=== PATIENT | male | born 1965 | race Caucasian/White ===

== ENCOUNTER 2021-05-07 14:05 | Inpatient (IN) | payer BC, OTHER ==
[2021-05-07 14:56] LABS: Basophils # (A) 0.1 k/uL (0-0.2); Basophils % (A) 1 %; Eosinophils # (A) 0.3 k/uL (0-0.7); Eosinophils % (A) 3 %; HCT 50.1 % (39.0-53.0); HGB 15.9 gm/dL (13.0-17.5); Lymphocytes # (A) 0.9 k/uL (1.0-4.8); Lymphocytes % (A) 11 %; MCH 28.2 pg (25.0-35.0); MCHC 31.8 g/dL (31.0-37.0); MCV 88.6 fL (80.0-100.0); Mean Platelet Volume 8.3; Monocytes # (A) 0.5 k/uL (0-1.0); Monocytes % (A) 5 %; Neutrophils # (A) 6.6 k/uL (1.3-7.7); Neutrophils % (A) 78 %; Platelet Count 186 k/uL (150-450); RBC 5.65 m/uL (4.30-5.90); RDW 14.8 % (11.5-15.5); WBC 8.4 k/uL (3.8-10.6)
[2021-05-07 15:05] LABS: Prothrombin Time 10.7 sec (9.0-12.0)
[2021-05-07 15:06] LABS: ALT 28 U/L (4-49); AST 40 U/L (17-59); African American GFR (CKD) >90 (>60 ml/min/1.73 sqM); Albumin 3.8 g/dL (3.5-5.0); Alkaline Phosphatase 93 U/L (38-126); Anion Gap 6 mmol/L; Blood Urea Nitrogen 28 mg/dL (9-20); Calcium 8.6 mg/dL (8.4-10.2); Carbon Dioxide 33 mmol/L (22-30); Chloride 100 mmol/L (98-107); Glucose 146 mg/dL (74-99); Non-African American GFR(CKD) 89 (>60 ml/min/1.73 sqM); Potassium 4.6 mmol/L (3.5-5.1); Sodium 139 mmol/L (137-145); Total Bilirubin 0.6 mg/dL (0.2-1.3)
--- NOTE | 2021-05-07 15:44 | XR ---
EXAMINATION TYPE: XR chest 2V DATE OF EXAM: 05/07/2021 COMPARISON: NONE HISTORY: Syncope TECHNIQUE: 2 views FINDINGS: Heart is enlarged. There is no heart failure. There are chest leads. Costophrenic angles ar e clear. Bony thorax is intact. IMPRESSION: Cardiomegaly. No acute lung disease.
--- NOTE | 2021-05-07 16:43 | ED ---
General Adult HPI - General Chief complaint: Syncope Stated complaint: falls Time Seen by Provider: 05/07/21 14:40 Source: patient Mode of arrival: wheelchair Limitations: no limitations - History of Present Illness Initial comments: Meir is a morbidly obese 56-year-old gentleman who up until recently has not been followed with any primary care provider. The patient presents to the emergency department today via private vehicle for evaluation of shortness of breath and multiple syncopal episodes. Patient reports he's had multiple falls over the past couple of weeks where he just passes out. He has bruising over his chest from these falls. No recent fevers or chills. No chest pain. He does feel short of breath and has significant exertional dyspnea. Does have palpitations at rest. Patient was recently started on Wellbutrin for depress ion. Patient states he knows he's unhealthy, he is depressed and overweight. - Related Data Home Medications Medication Instructions Recorded Confirmed Albuterol Inhaler [Ventolin Hfa 2 puff INHALATION RT-Q6H PRN 05/07/21 05/07/21 Inhaler] Fluticasone Propion/Salmeterol 1 puff INHALATION RT-BID 05/07/21 05/07/21 [Wixela 250-50 Inhub] Furosemide [Lasix] 20 mg PO DAILY 05/07/21 05/07/21 Loratadine [Claritin] 10 mg PO DAILY PRN 05/07/21 05/07/21 Naproxen Sodium 440 mg PO Q12H PRN 05/07/21 05/07/21 Potassium Gluconate [Potassium 99 mg PO DAILY 05/07/21 05/07/21 Gluconate ER] buPROPion XL [Wellbutrin XL] 150 mg PO DAILY 05/07/21 05/07/21 Allergies Allergy/AdvReac Type Severity Reaction Status Date / Time No Known Allergies Allergy Verified 05/07/21 15:51 Review of Systems ROS Statement: Those systems with pertinent positive or pertinent negative responses have been documented in the HPI. ROS Other: All systems not noted in ROS Statement are negative. Past Medical History Past Medical History: Atrial Fibrillation, Asthma, Sleep Apnea/CPAP/BIPAP History of Any Multi-Drug Resistant Organisms: None Reported Past Surgical History: Hernia Repair, Joint Replacement, Orthopedic Surgery Additional Past Surgical History / Comment(s): rt hip, rt foot Past Psychological History: Depression Smoking Status: Current every day smoker Past Alcohol Use History: None Reported, Unable to Obtain General Exam - General Exam Comments Initial Comments: Physical Exam GENERAL: Patient is well-developed and well-nourished. Patient is nontoxic and well- hydrated and is in no distress. HENT: Normocephalic, Atraumatic. EYES: PERRL, EOMI PULMONARY: Unlabored respirations. No audible rales rhonchi or wheezing was noted. CARDIOVASCULAR: Tachycardic, regular Lateral lower extremity edema, nonpitting ABDOMEN: Soft and nontender with normal bowel sounds. SKIN: Skin is clear with no lesions or rashes and otherwise unremarkable. Skin changes of bilateral lower extremity is consistent with venous stasis : Deferred NEUROLOGIC: Patient is alert and oriented x3. Moving all extremities spontaneously MUSCULOSKELETAL: Normal extremities with adequate strength and full range of motion. No lower extremity swelling or edema. No calf tenderness. PSYCHIATRIC: Normal psychiatric evaluation. Limitations: no limitations Course Vital Signs 05/07/21 05/07/21 05/07/21 14:23 15:36 16:47 Temperature 99.5 F Pulse Rate 134 H 133 H 130 H Respiratory 24 18 20 Rate Blood Pressure 138/79 175/97 174/107 O2 Sat by Pulse 87 L 96 95 Oximetry 05/07/21 18:21 Temperature Pulse Rate 130 H Respiratory 18 Rate Blood Pressure 145/84 O2 Sat by Pulse 94 L Oximetry EKG Findings - EKG Comments: EKG Findings:: EKG was obtained due to tachycardia lightheadedness, EKG was obtained at 1535 rate is 132 rhythm is sinus at a short CA, CA 88 QRS 132 QTc IV Lasix there are no obvious ST elevations or depressions no evidence of acute infarction. Medical Decision Making - Medical Decision Making She was seen and evaluated, history is obtained from the patient and mother bedside. 56-year-old gentleman does not follow primary care physician, is on Wellbutrin recently started for depression. Patient with recurrent syncopal episodes no chest pain or shortness of breath. Patient is tachycardic with normal blood pressure. Labs are obtained CT pulmonary embolism study was obtained. Labs with mildly elevated troponin, CT PE study is negative for PE or dissection there is some evidence of early heart failure and a pericardial effusion which appears small. These results were discussed with Dr. Peres who accepts the admission for trending troponins and further evaluation. Patient care was discussed with bullet swaging machine operator stone rougher Dr. Alarcon who agrees with plan for by mouth Lopressor, gentle fluids, trend troponins and cardiology follow-up. - Lab Data Result diagrams: 05/07/21 14:47 05/07/21 14:47 Lab Results 05/07/21 05/07/21 05/07/21 Range/Units 14:47 14:47 14:47 WBC 8.4 (3.8-10.6) k/uL RBC 5.65 (4.30-5.90) m/uL Hgb 15.9 (13.0-17.5) gm/dL Hct 50.1 (39.0-53.0) % MCV 88.6 (80.0-100.0) fL MCH 28.2 (25.0-35.0) pg MCHC 31.8 (31.0-37.0) g/dL RDW 14.8 (11.5-15.5) % Plt Count 186 (150-450) k/uL MPV 8.3 Neutrophils % 78 % Lymphocytes % 11 % Monocytes % 5 % Eosinophils % 3 % Basophils % 1 % Neutrophils # 6.6 (1.3-7.7) k/uL Lymphocytes # 0.9 L (1.0-4.8) k/uL Monocytes # 0.5 (0-1.0) k/uL Eosinophils # 0.3 (0-0.7) k/uL Basophils # 0.1 (0-0.2) k/uL PT (9.0-12.0) sec INR (<1.2) APTT (22.0-30.0) sec Sodium 139 (137-145) mmol/L Potassium 4.6 (3.5-5.1) mmol/L Chloride 100 (98-107) mmol/L Carbon Dioxide 33 H (22-30) mmol/L Anion Gap 6 mmol/L BUN 28 H (9-20) mg/dL Creatinine 0.94 (0.66-1.25) mg/dL Est GFR (CKD-EPI)AfAm >90 (>60 ml/min/1.73 sqM) Est GFR (CKD-EPI)NonAf 89 (>60 ml/min/1.73 sqM) Glucose 146 H (74-99) mg/dL Plasma Lactic Acid Ankur 1.5 (0.7-2.0) mmol/L Calcium 8.6 (8.4-10.2) mg/dL Magnesium 2.0 (1.6-2.3) mg/dL Total Bilirubin 0.6 (0.2-1.3) mg/dL AST 40 (17-59) U/L ALT 28 (4-49) U/L Alkaline Phosphatase 93 (38-126) U/L Troponin I (0.000-0.034) ng/mL NT-Pro-B Natriuret Pep pg/mL Total Protein 7.0 (6.3-8.2) g/dL Albumin 3.8 (3.5-5.0) g/dL TSH 1.730 (0.465-4.680) mIU/L Coronavirus (PCR) (Not Detectd) 05/07/21 05/07/21 05/07/21 Range/Units 14:47 14:47 14:47 WBC (3.8-10.6) k/uL RBC (4.30-5.90) m/uL Hgb (13.0-17.5) gm/dL Hct (39.0-53.0) % MCV (80.0-100.0) fL MCH (25.0-35.0) pg MCHC (31.0-37.0) g/dL RDW (11.5-15.5) % Plt Count (150-450) k/uL MPV Neutrophils % % Lymphocytes % % Monocytes % % Eosinophils % % Basophils % % Neutrophils # (1.3-7.7) k/uL Lymphocytes # (1.0-4.8) k/uL Monocytes # (0-1.0) k/uL Eosinophils # (0-0.7) k/uL Basophils # (0-0.2) k/uL PT (9.0-12.0) sec INR (<1.2) APTT (22.0-30.0) sec Sodium (137-145) mmol/L Potassium (3.5-5.1) mmol/L Chloride (98-107) mmol/L Carbon Dioxide (22-30) mmol/L Anion Gap mmol/L BUN (9-20) mg/dL Creatinine (0.66-1.25) mg/dL Est GFR (CKD-EPI)AfAm (>60 ml/min/1.73 sqM) Est GFR (CKD-EPI)NonAf (>60 ml/min/1.73 sqM) Glucose (74-99) mg/dL Plasma Lactic Acid Ankur (0.7-2.0) mmol/L Calcium (8.4-10.2) mg/dL Magnesium (1.6-2.3) mg/dL Total Bilirubin (0.2-1.3) mg/dL AST (17-59) U/L ALT (4-49) U/L Alkaline Phosphatase (38-126) U/L Troponin I 0.049 H* (0.000-0.034) ng/mL NT-Pro-B Natriuret Pep 1390 pg/mL Total Protein (6.3-8.2) g/dL Albumin (3.5-5.0) g/dL TSH (0.465-4.680) mIU/L Coronavirus (PCR) Not Detected (Not Detectd) 05/07/21 Range/Units 14:47 WBC (3.8-10.6) k/uL RBC (4.30-5.90) m/uL Hgb (13.0-17.5) gm/dL Hct (39.0-53.0) % MCV (80.0-100.0) fL MCH (25.0-35.0) pg MCHC (31.0-37.0) g/dL RDW (11.5-15.5) % Plt Count (150-450) k/uL MPV Neutrophils % % Lymphocytes % % Monocytes % % Eosinophils % % Basophils % % Neutrophils # (1.3-7.7) k/uL Lymphocytes # (1.0-4.8) k/uL Monocytes # (0-1.0) k/uL Eosinophils # (0-0.7) k/uL Basophils # (0-0.2) k/uL PT 10.7 (9.0-12.0) sec INR 1.0 (<1.2) APTT 23.0 (22.0-30.0) sec Sodium (137-145) mmol/L Potassium (3.5-5.1) mmol/L Chloride (98-107) mmol/L Carbon Dioxide (22-30) mmol/L Anion Gap mmol/L BUN (9-20) mg/dL Creatinine (0.66-1.25) mg/dL Est GFR (CKD-EPI)AfAm (>60 ml/min/1.73 sqM) Est GFR (CKD-EPI)NonAf (>60 ml/min/1.73 sqM) Glucose (74-99) mg/dL Plasma Lactic Acid Ankur (0.7-2.0) mmol/L Calcium (8.4-10.2) mg/dL Magnesium (1.6-2.3) mg/dL Total Bilirubin (0.2-1.3) mg/dL AST (17-59) U/L ALT (4-49) U/L Alkaline Phosphatase (38-126) U/L Troponin I (0.000-0.034) ng/mL NT-Pro-B Natriuret Pep pg/mL Total Protein (6.3-8.2) g/dL Albumin (3.5-5.0) g/dL TSH (0.465-4.680) mIU/L Coronavirus (PCR) (Not Detectd) Disposition Clinical Impression: Recurrent syncope, Tachycardia, Shortened CA interval Disposition: ADMITTED IP TO THIS HOSP Condition: Serious Is patient prescribed a controlled substance at d/c from ED?: No Referrals: Anu Mirza MD [Primary Care Provider] - 1-2 days
--- NOTE | 2021-05-07 17:01 | CT ---
EXAMINATION TYPE: CT chest angio for PE DATE OF EXAM: 05/07/2021 COMPARISON: None HISTORY: Shortness of breath. CT DLP: 909.9 mGycm Automated exposure control for dose reduction was used. CONTRAST: Performed with IV Contrast, patient injected with 100 mL of Isovue 370. There are 3-D post processed images. There is some coarse interstitial infiltrate and subsegmental atelectasis in the posterior lower lung gimenez. Heart is moderately enlarged. There is pericardial effusion. There is no mediastinal adenopa thy. There are no hilar masses. I see no evidence of filling defect in the pulmonary arteries. Thoracic aorta is intact. There is no aneurysm or dissection. Thoracic spine is intact. There is no compression fracture. Sternum is intact. There is old posterior left side healed rib fractures. IMPRESSION: Moderate cardiomegaly. Bilateral basilar pulmonary interstitial infiltrates and atelectasis. Small pe ricardial effusion. No evidence of pulmonary embolism.
--- NOTE | 2021-05-07 17:45 | XR ---
EXAMINATION TYPE: XR hand limited RT DATE OF EXAM: 05/07/2021 COMPARISON: NONE HISTORY: Finger swelling TECHNIQUE: 2 views FINDINGS: There is soft tissue swelling around the dorsum of the hand and wrist. The fingers show sof t tissue swelling. I see no fracture nor dislocation. There are no erosions. There is more noticeable soft tissue swelling around the PIP joint of the ring finger. IMPRESSION: Soft tissue swelling. No fracture.
[2021-05-07] MEDS: SODIUM CHLORIDE 0.9% 1,000 ML IV SCH ×2 (18:13→22:17)
[2021-05-07] MEDS ORDERED: NITROGLYCERIN SL TABS 0.4 MG TAB SUBLINGUAL PRN (18:18)
[2021-05-07 21:35] LABS: Appearance,Urine Clear (Clear); Bilirubin,Urine Negative (Negative); Blood,Urine Negative (Negative); Color,Urine Light Yellow; Glucose,Urine (UA) Negative (Negative); Ketones,Urine Negative (Negative); Leukocyte Esterase,Urine Negative (Negative); Nitrite,Urine Negative (Negative); Protein,Urine Negative (Negative); Specific Gravity,Urine 1.032 (1.001-1.035); Urobilinogen,Urine <2.0 mg/dL (<2.0)
[2021-05-07] MEDS: METOPROLOL TARTRATE 25 MG TAB PO SCH (22:17)
[2021-05-08] MEDS: HYDROcodone/APAP 5-325MG 1 EACH TAB PO PRN (01:00)
[2021-05-08] MEDS: SODIUM CHLORIDE 0.9% 1,000 ML IV SCH ×2 (06:49→11:46)
[2021-05-08] MEDS ORDERED: ASPIRIN 325 MG TAB PO SCH (09:00)
--- NOTE | 2021-05-08 09:38 | ECHOF ---
Referral Reason:elevated trop, pericardial effusion on Ct MEASUREMENTS -------- HEIGHT: 182.9 cm WEIGHT: 158.8 kg BP: RVIDd: 4.1 cm (< 3.3) IVSd: 1.3 cm (0.6 - 1.1) LVIDd: 4.9 cm (3.9 - 5.3) LVPWd: 1.5 cm (0.6 - 1.1) IVSs: 1.9 cm LVIDs: 3.4 cm LVPWs: 2.1 cm Ao Diam: 3.7 cm (2.0 - 3.7) MV E Donnie: 0.76 m/s MV DecT: 194 ms MV A Donnie: 0.33 m/s MV E/A Ratio: 2.32 RAP: 5.00 mmHg RVSP: 13.38 mmHg FINDINGS -------- Sinus rhythm. Morbid Obesity This was a techncally difficult study with suboptimal views, , Lumason utilized for enhancement of images. The left ventricular size is normal. There is mild concentric left ventricular hypertrophy. Overa ll left ventricular systolic function is normal with, an EF between 55 - 60 %. The right ventricle is moderately enlarged. The left atrial size is normal. The right atrial size is normal. The aortic valve was not well visualized. The mitral valve is normal. Mild mitral regurgitation is present. The tricuspid valve appears structurally normal. Mild tricuspid regurgitation present. Right vent ricular systolic pressure is normal at < 35 mmHg. The pulmonic valve was not well visualized. The aortic root size is normal. There is a small, generalized pericardial effusion present. CONCLUSIONS -------- 1. Morbid Obesity 2. This was a techncally difficult study with suboptimal views, , Lumason utilized for enhancement of images. 3. There is mild concentric left ventricular hypertrophy. 4. Overall left ventricular systolic function is normal with, an EF between 55 - 60 %. 5. The right ventricle is moderately enlarged. 6. The left atrial size is normal. 7. The aortic valve was not well visualized. 8. Mild mitral regurgitation is present. 9. Mild tricuspid regurgitation present. 10. There is a small, generalized pericardial effusion present. PROPERTY ANALYST: Renetta Cruz RDCS
[2021-05-08] MEDS ORDERED: ALBUTEROL NEBULIZED 2.5 MG/3 ML INHALATION PRN (09:58)
[2021-05-08] MEDS: METOPROLOL TARTRATE 25 MG TAB PO SCH ×2 (10:01→23:28)
[2021-05-08] MEDS ORDERED: SYMBICORT 80-4.5 MCG INHALER INHALATION SCH (10:30)
[2021-05-08 10:40] LABS: Chol/HDL Ratio 4.27 Ratio; HDL Cholesterol 34.9 mg/dL (40.00-60.00); LDL Cholesterol,Calculated 92.3 mg/dL (0.0-131.0); VLDL Calculation 21.8 mg/dL (5.00-40.00)
[2021-05-08] MEDS ORDERED: SODIUM CHLORIDE 0.9% 1,000 ML IV SCH (12:00)
[2021-05-08 12:05] LABS: Glucose,Whole Blood 139 mg/dL (75-99)
[2021-05-08 12:14] LABS: ABG Base Excess 9.9 mmol/L; ABG HCO3 39 mmol/L (21-25); ABG Oxygen Saturation 89.6 % (94-97); ABG PO2 65 mmHg (83-108); ABG TCO2 42 mmol/L (19-24); Allen Test Performed? Yes
[2021-05-08 12:22] LABS: ABG PH 7.16 (7.35-7.45)
[2021-05-08 12:23] LABS: ABG PCO2 109 mmHg (35-45)
--- NOTE | 2021-05-08 13:18 | XR ---
EXAMINATION TYPE: XR chest 1V DATE OF EXAM: 05/08/2021 COMPARISON: 05/07/2021 HISTORY: Shortness of breath TECHNIQUE: Single frontal view of the chest is obtained. FINDINGS: Heart is enlarged and there is diffuse interstitial pattern. No pleural effusion or pneumo thorax. Hypertrophic and degenerative change of the spine. IMPRESSION: 1. Severe cardiomegaly correlate for CHF. Otherwise consider interstitial pneumonitis.
--- NOTE | 2021-05-08 13:21 | P.CRDCN ---
History of Present Illness Consult date: 05/08/21 History of present illness: HISTORY OF PRESENT ILLNESS: This is a 56 year old male with a past medical history significant for asthma, COPD, nicotine dependence, and questionable atrial fibrillation. Patient states he was following with a cooking appliance repair technician at [facility]. We have been asked to see the patient in consultation for syncope. Patient examined at the bedside in the ER. Patient is a poor historian and unable to provide accurate description of the events that brought him to the hospital. He states he came to the hospital because he "kept falling asleep standing up". It is unclear if the patient had any actual syncope episodes at home. Denies CP or SOB. Patient was found to be in atrial flutter with RVR in the ER. He is currently in sinus mechanism at the time of examination. Echocardiogram completed revealed ejection fraction 55-60%. mild mitral regurgitation. Mild tricuspid regurgitation. Small generalized pericardial effusion. CT completed which was negative for PE. REVIEW OF SYSTEMS: At the time of my exam: CONSTITUTIONAL: Denies fever or chills. HEENT: Denies blurred vision, vision changes, or eye pain. Denies hemoptysis CARDIOVASCULAR: Denies chest pain. Denies orthopnea. Denies PND. Denies palpitations RESPIRATORY: Denies shortness of breath. GASTROINTESTINAL: Denies abdominal pain. Denies nausea or vomiting. HEMATOLOGIC: Denies bleeding disorders. GENITOURINARY: Denies any blood in urine. SKIN: Denies pruitis. Denies rash. PHYSICAL EXAM: VITAL SIGNS: Reviewed. GENERAL: Well-developed in no acute distress. HEENT: Head is normocephalic. Pupils are equal, round. Sclerae anicteric. Mucous membranes of the mouth are moist. Neck supple. No JVD or thyromegaly LUNGS: Respirations even and unlabored. Lungs essentially clear to auscultation bilaterally. HEART: Regular rate and rhythm. S1 and S2 heard. ABDOMEN: Soft. Nondistended. Nontender. EXTREMITIES: Normal range of motion. No clubbing or cyanosis. Peripheral pulses intact. No lower extremity edema NEUROLOGIC: Awake and alert. Oriented x 3. ASSESSMENT: Typical atrial flutter with RVR, unsure if new or patient has a history, awaiting records from primary cooking appliance repair technician Questionable syncope COPD Nicotine dependence PLAN: Decrease aspirin to 81mg daily Continue metoprolol 25mg BID Check orthostatics No anticoagulation per Dr. Burton Obtain records from primary cooking appliance repair technician Further recommendations pending patient course Nurse practitioner note has been reviewed by physician. Signing provider agrees with the documented findings, assessment, and plan of care. Past Medical History Past Medical History: Atrial Fibrillation, Asthma, Sleep Apnea/CPAP/BIPAP History of Any Multi-Drug Resistant Organisms: None Reported Past Surgical History: Hernia Repair, Joint Replacement, Orthopedic Surgery Additional Past Surgical History / Comment(s): rt hip, rt foot Past Psychological History: Depression Smoking Status: Current every day smoker Past Alcohol Use History: None Reported, Unable to Obtain Medications and Allergies Home Medications Medication Instructions Recorded Confirmed Type Albuterol Inhaler [Ventolin Hfa 2 puff INHALATION RT-Q6H PRN 05/07/21 05/07/21 History Inhaler] Fluticasone Propion/Salmeterol 1 puff INHALATION RT-BID 05/07/21 05/07/21 History [Wixela 250-50 Inhub] Furosemide [Lasix] 20 mg PO DAILY 05/07/21 05/07/21 History Loratadine [Claritin] 10 mg PO DAILY PRN 05/07/21 05/07/21 History Naproxen Sodium 440 mg PO Q12H PRN 05/07/21 05/07/21 History Potassium Gluconate [Potassium 99 mg PO DAILY 05/07/21 05/07/21 History Gluconate ER] buPROPion XL [Wellbutrin XL] 150 mg PO DAILY 05/07/21 05/07/21 History Allergies Allergy/AdvReac Type Severity Reaction Status Date / Time No Known Allergies Allergy Verified 05/07/21 15:51 Physical Exam Vitals: Vital Signs Temp Pulse Pulse Pulse Pulse Resp BP 05/08/21 06:10 71 16 141/95 05/08/21 04:25 98.2 F 67 16 140/80 05/08/21 00:00 69 20 156/106 05/07/21 23:00 68 20 05/07/21 22:15 82 18 142/67 05/07/21 20:17 98.3 F 130 H 20 129/88 05/07/21 20:00 67 67 72 18 05/07/21 18:21 130 H 18 145/84 05/07/21 16:47 130 H 20 174/107 05/07/21 15:36 133 H 18 175/97 05/07/21 14:23 99.5 F 134 H 24 138/79 BP BP Pulse Ox 05/08/21 06:10 94 L 05/08/21 04:25 98 05/08/21 00:00 95 05/07/21 23:00 05/07/21 22:15 95 05/07/21 20:17 93 L 05/07/21 20:00 104/86 136/80 97 05/07/21 18:21 94 L 05/07/21 16:47 95 05/07/21 15:36 96 05/07/21 14:23 87 L Results 05/07/21 14:47 05/07/21 14:47 Cardiac Enzymes 05/07/21 05/07/21 05/07/21 Range/Units 14:47 14:47 20:08 AST 40 (17-59) U/L Troponin I 0.049 H* 0.045 H* (0.000-0.034) ng/mL 05/07/21 Range/Units 23:25 AST (17-59) U/L Troponin I 0.043 H* (0.000-0.034) ng/mL Coagulation 05/07/21 Range/Units 14:47 PT 10.7 (9.0-12.0) sec APTT 23.0 (22.0-30.0) sec CBC 05/07/21 Range/Units 14:47 WBC 8.4 (3.8-10.6) k/uL RBC 5.65 (4.30-5.90) m/uL Hgb 15.9 (13.0-17.5) gm/dL Hct 50.1 (39.0-53.0) % Plt Count 186 (150-450) k/uL Comprehensive Metabolic Panel 05/07/21 Range/Units 14:47 Sodium 139 (137-145) mmol/L Potassium 4.6 (3.5-5.1) mmol/L Chloride 100 (98-107) mmol/L Carbon Dioxide 33 H (22-30) mmol/L BUN 28 H (9-20) mg/dL Creatinine 0.94 (0.66-1.25) mg/dL Glucose 146 H (74-99) mg/dL Calcium 8.6 (8.4-10.2) mg/dL AST 40 (17-59) U/L ALT 28 (4-49) U/L Alkaline Phosphatase 93 (38-126) U/L Total Protein 7.0 (6.3-8.2) g/dL Albumin 3.8 (3.5-5.0) g/dL Current Medications Generic Name Dose Route Start Last Admin Trade Name Freq PRN Reason Stop Dose Admin Hydrocodone Bitart/Acetaminophen 1 each 05/07/21 23:18 05/08/21 01:00 Hydrocodone/Apap 5-325mg 1 Each Tab PO 1 each Q6HR PRN Administration Pain Aspirin 81 mg 05/09/21 09:00 Aspirin 81 Mg PO DAILY OBI Sodium Chloride 1,000 mls @ 150 mls/hr 05/07/21 14:45 05/08/21 06:49 Saline 0.9% IV 150 mls/hr .Q6H40M OBI Administration Metoprolol Tartrate 25 mg 05/07/21 21:00 05/07/21 22:17 Metoprolol Tartrate 25 Mg Tab PO 25 mg BID OBI Administration Nitroglycerin 0.4 mg 05/07/21 18:18 Nitroglycerin Sl Tabs 0.4 Mg Tab SUBLINGUAL Q5M PRN Chest Pain 05/07/21 14:47 05/07/21 14:47
[2021-05-08] MEDS: buPROPion XL 150 MG TAB.ER.24H PO SCH (13:51)
[2021-05-08] MEDS ORDERED: NALOXONE 0.4 MG/ML 1 ML VIAL IVP STA (14:00)
[2021-05-08] MEDS ORDERED: FUROSEMIDE 10 MG/ML 4 ML VIAL IV STA (14:01)
--- NOTE | 2021-05-08 14:08 | P.CNPUL ---
History of Present Illness Consult date: 05/08/21 Reason for consult: dyspnea, COPD, obstructive sleep apnea History of present illness: 56-year-old male patient, morbidly obese with a BMI of 47.5, known history of COPD/asthma, a chronic smoker also with questionable history of atrial fibrillat ion. The patient came into the hospital awake and alert and the patient was having multiple syncopal episodes. In the emergency, the patient was found to be in atrial flutter with RVR. He subsequently converted to normal sinus mechanism. During the course of his emergency stay, the patient became progressively more unresponsive. He is known to have obstructive sleep apnea and apparently uses a CPAP machine at home. He doesn't not available. The patient became quite obtunded. Her blood gases showed a pH of 7.19 with a pCO2 of 109 and pO2 of 65. Urinalysis was negative. Blood work showed troponin 3 of 0.4, his white cell count was 8.4 with a hemoglobin of 15.9 and platelets of 186. Chest x-ray showed massive cardiomegaly with mild four-vessel congestion. CT angiogram showed no evidence of any pulmonary embolism. There was some limited hazy infiltrate in the lung bases bilaterally. Serum bicarb is 33. BUN is at 28 with a creatinine of 0.9. Based on the current blood gases, the patient was placed on a BiPAP at a pressure of 16/8 cm of water with an FiO2 of 40%. His current pulse ox is a 99%. He is respiratory rate is around 21. He is able to generate a tidal volume of 420 mL. the patient's: COVID 19 testing was essentially negative. Review of Systems ROS unobtainable: due to mental status Past Medical History Past Medical History: Atrial Fibrillation, Asthma, COPD, Sleep Apnea/CPAP/BIPAP History of Any Multi-Drug Resistant Organisms: None Reported Past Surgical History: Hernia Repair, Joint Replacement, Orthopedic Surgery Additional Past Surgical History / Comment(s): rt hip, rt foot Past Psychological History: Depression Smoking Status: Current every day smoker Past Alcohol Use History: None Reported, Unable to Obtain Medications and Allergies Home Medications Medication Instructions Recorded Confirmed Type Albuterol Inhaler [Ventolin Hfa 2 puff INHALATION RT-Q6H PRN 05/07/21 05/07/21 History Inhaler] Fluticasone Propion/Salmeterol 1 puff INHALATION RT-BID 05/07/21 05/07/21 History [Wixela 250-50 Inhub] Furosemide [Lasix] 20 mg PO DAILY 05/07/21 05/07/21 History Loratadine [Claritin] 10 mg PO DAILY PRN 05/07/21 05/07/21 History Naproxen Sodium 440 mg PO Q12H PRN 05/07/21 05/07/21 History Potassium Gluconate [Potassium 99 mg PO DAILY 05/07/21 05/07/21 History Gluconate ER] buPROPion XL [Wellbutrin XL] 150 mg PO DAILY 05/07/21 05/07/21 History Allergies Allergy/AdvReac Type Severity Reaction Status Date / Time No Known Allergies Allergy Verified 05/07/21 15:51 Physical Exam Vitals: Vital Signs Temp Pulse Pulse Pulse Pulse Resp BP 05/08/21 13:43 73 24 143/68 05/08/21 12:54 05/08/21 12:44 05/08/21 12:00 66 18 05/08/21 09:58 05/08/21 08:45 67 67 72 18 05/08/21 06:10 71 16 141/95 05/08/21 04:25 98.2 F 67 16 140/80 05/08/21 00:00 69 20 156/106 05/07/21 23:00 68 20 05/07/21 22:15 82 18 142/67 05/07/21 20:17 98.3 F 130 H 20 129/88 05/07/21 18:21 130 H 18 145/84 05/07/21 16:47 130 H 20 174/107 05/07/21 15:36 133 H 18 175/97 05/07/21 14:23 99.5 F 134 H 24 138/79 BP BP BP Pulse Ox 05/08/21 13:43 92 L 05/08/21 12:54 92 L 05/08/21 12:44 78 L 05/08/21 12:00 138/64 91 L 05/08/21 09:58 90 L 05/08/21 08:45 104/86 136/80 97 05/08/21 06:10 94 L 05/08/21 04:25 98 05/08/21 00:00 95 05/07/21 23:00 05/07/21 22:15 95 05/07/21 20:17 93 L 05/07/21 18:21 94 L 05/07/21 16:47 95 05/07/21 15:36 96 05/07/21 14:23 87 L Morbidly obese, currently on a BiPAP, somnolent and lethargic yet arousable upon stimulation. He is able to tolerate full face BiPAP mask. Head exam was generally normal. There was no scleral icterus or corneal arcus. Mucous membranes were moist. Neck was supple and without jugular venous distension, thyromegaly, or carotid bruits. Carotids were easily palpable bilaterally. There was no adenopathy. The patient has significant crowding of the posterior pharynx. He has a Mallampati class IV. He has cyanosis of the mucosal membranes. Lungs sounds are diminished bilaterally and there is diminished breath sounds at lung bases. Few scattered expiratory wheezes. Cardiac exam revealed the PMI to be normally situated and sized. The rhythm was regular and no extrasystoles were noted during several minutes of auscultation. The first and second heart sounds were normal and physiologic splitting of the second heart sound was noted. There were no murmurs, rubs, clicks, or gallops. Abdomen abdomenAbdominal exam revealed normal bowel sounds. The abdomen was soft, non-tender, and without masses, organomegaly, or appreciable enlargement of the abdominal aorta. And the patient has a tiny umbilical hernia Extremities show trace edema and there is no cyanosis or clubbing. Neurologically the patient is and CO2 narcosis at this point in time.. Withdraws to painful examination all 4 extremities. Pupils are equal and reactive to light. Very much somnolent and sleepy, does not follow commands and regular basis. Results - Laboratory Findings CBC and BMP: 05/07/21 14:47 05/07/21 14:47 ABG ABG pH 7.16 (7.35-7.45) L* 05/08/21 12:04 ABG pCO2 109 mmHg (35-45) H* 05/08/21 12:04 ABG pO2 65 mmHg (83-108) L 05/08/21 12:04 ABG O2 Saturation 89.6 % (94-97) L 05/08/21 12:04 PT/INR, D-dimer PT 10.7 sec (9.0-12.0) 05/07/21 14:47 INR 1.0 (<1.2) 05/07/21 14:47 Abnormal lab findings: Abnormal Labs 05/07/21 05/07/21 05/07/21 14:47 14:47 14:47 Lymphocytes # 0.9 L ABG pH ABG pCO2 ABG pO2 ABG HCO3 ABG Total CO2 ABG O2 Saturation Carbon Dioxide 33 H BUN 28 H Glucose 146 H POC Glucose (mg/dL) Troponin I 0.049 H* HDL Cholesterol 05/07/21 05/07/21 05/08/21 20:08 23:25 03:11 Lymphocytes # ABG pH ABG pCO2 ABG pO2 ABG HCO3 ABG Total CO2 ABG O2 Saturation Carbon Dioxide BUN Glucose POC Glucose (mg/dL) Troponin I 0.045 H* 0.043 H* HDL Cholesterol 34.90 L 05/08/21 05/08/21 12:03 12:04 Lymphocytes # ABG pH 7.16 L* ABG pCO2 109 H* ABG pO2 65 L ABG HCO3 39 H ABG Total CO2 42 H ABG O2 Saturation 89.6 L Carbon Dioxide BUN Glucose POC Glucose (mg/dL) 139 H Troponin I HDL Cholesterol - Diagnostic Findings Chest x-ray: image reviewed CT scan - chest: image reviewed Assessment and Plan Plan: Acute on chronic hypoxic/hypercapnic respiratory failure currently on a BiPAP for respiratory support at a pressure of 16/8 cm of water. Chest x-ray was reviewed and this shows cardiomegaly and mild pulmonary vessel congestion. CT angiogram is negative for pulmonary embolism. No evidence of any pneumonia. Although the patient has some increased haziness and pulmonary vascular markings in the lung bases bilaterally. Consider underlying COPD exacerbation in the possibility of substance abuse/drug abuse causing hypoventilation contributing to his respiratory failure. 2 acute BiPAP dependent respiratory failure, we'll try to avoid intubation at this point in time 3 CO2 narcosis with altered mentation 4 Obstructive sleep apnea, and the patient has been on CPAP pressure of 10 cm of water on outpatient basis. He does have periodic limb movement activity 5 obesity with BMI 47.5 6 COPD 7 A. fib/flutter with rapid ventricular response current rhythm is sinus 8 history of paroxysmal atrial fibrillation 9 history of bronchial asthma 10 history of osteoarthritis 11 history of umbilical hernia Plan Continue BiPAP as same level of pressure Use Precedex in the ICU if needed to control his agitation Monitor the blood. A repeat another blood gas while being on a BiPAP at a pressure of 16/8 cm of water with an FiO2 of 100% Continue bronchodilators and actually Medrol 40 mg every 8 hours Agree on antibiotics Lasix 40 mg IV push 1 and IV fluids to KVO Urine tox screen Give a dose of Narcan pending urine drug screen and assess for any positive response Echocardiogram was noted and the patient has no signs of any cardiomyopathy Anticoagulation with Eliquis and the patient was taken outpatient basis. DuoNeb nebulized treatments around the clock As for the patient with ICU and I will continue to follow. We'll consider intubation mechanical ventilation and there is any further decompensation his condition. His COVID 19 testing came back negative.
--- NOTE | 2021-05-08 15:24 | P.CNNES ---
History of Present Illness Consult date: 05/08/21 Requesting physician: Corrie Crawford Reason for Consult: syncope History of Present Illness: This is a 56-year-old gentleman with history of COPD/asthma and chronic smoker who presented emergency department on 05/07/2021 for multiple syncopal episode area. History is obtained from medical records and his nurse. Per the patient nurse the agent complaining of multiple syncopal episodes. And had multiple falls over the past couple weeks as ruled out as a result has bruises. I cannot get the details of his syncopal episode since the patient is on the BiPAP machine and that is somnolent. Unknown if the patient has any history of seizures. Patient has also presented with shortness of breath and has significant exertional dyspnea per the ED note as well as per the ED note it is mentioned the patient has palpitation arrest. In the ED the patient went into atrial flutter with RVR and went into back in sinus rhythm. Cardiology is mentioned that the patient's atrial fib which with RVR is a do not sure if it's the patient has a history or this is a new onset atrial fibrillation and pending records. Patient home medication consist of Lasix, Claritin, naproxen, Wellbutrin 150 mg daily, albuterol inhaler. Some of the workup in the hospital consisted of: Initial vital signs is blood pressure of 138/79, heart rate 134, temperature of 99.5 Fahrenheit oral, respiratory of 24 and pulse ox of 87% liters at room air. Afterwards the patient was at 96% on 4 L of nasal cannula. CBC with differential is unremarkable. Chemistry panel sodium 139, creatinine is up 0.94, calcium is 8.6, magnesium 2.0, AST of 40 and ALT of 28,. Troponin is a 0.049 repeated is 0.045. Lactic acid venous 1.5. TSH is 1.73. Panel is a triglyceride of 109, cholesterol 149, LDL 92 and HDL of 34. 2-D echo was reported as a ejection fraction 55-60%. Mild concentric left ventricular hypertrophy. Mild mitral regurgitation. Mild tricuspid regurgitation. Small generalized pericardial effusion. Left atrial size is normal. Urinalysis negative for urinary tract infection. Thorne virus is nondetected. ABG is his the pH is 7.16 and pCO2 2 is 109 while the pO2 is 65 Review of Systems Review of system is limited because of patient condition but the pertitent positive and negative as per HPI. Past Medical History Past Medical History: Atrial Fibrillation, Asthma, COPD, Sleep Apnea/CPAP/BIPAP History of Any Multi-Drug Resistant Organisms: None Reported Past Surgical History: Hernia Repair, Joint Replacement, Orthopedic Surgery Additional Past Surgical History / Comment(s): rt hip, rt foot Past Psychological History: Depression Smoking Status: Current every day smoker Past Alcohol Use History: None Reported, Unable to Obtain Medications and Allergies Home Medications Medication Instructions Recorded Confirmed Type Albuterol Inhaler [Ventolin Hfa 2 puff INHALATION RT-Q6H PRN 05/07/21 05/07/21 History Inhaler] Fluticasone Propion/Salmeterol 1 puff INHALATION RT-BID 05/07/21 05/07/21 History [Wixela 250-50 Inhub] Furosemide [Lasix] 20 mg PO DAILY 05/07/21 05/07/21 History Loratadine [Claritin] 10 mg PO DAILY PRN 05/07/21 05/07/21 History Naproxen Sodium 440 mg PO Q12H PRN 05/07/21 05/07/21 History Potassium Gluconate [Potassium 99 mg PO DAILY 05/07/21 05/07/21 History Gluconate ER] buPROPion XL [Wellbutrin XL] 150 mg PO DAILY 05/07/21 05/07/21 History Allergies Allergy/AdvReac Type Severity Reaction Status Date / Time No Known Allergies Allergy Verified 05/07/21 15:51 Physical Examination - Vital Signs Vital Signs: Vital Signs Temp Pulse Pulse Pulse Pulse Resp BP 05/08/21 14:18 67 21 141/74 05/08/21 14:07 24 05/08/21 13:43 73 24 143/68 05/08/21 12:54 05/08/21 12:44 05/08/21 12:00 66 18 05/08/21 09:58 05/08/21 08:45 67 67 72 18 05/08/21 06:10 71 16 141/95 05/08/21 04:25 98.2 F 67 16 140/80 05/08/21 00:00 69 20 156/106 05/07/21 23:00 68 20 05/07/21 22:15 82 18 142/67 05/07/21 20:17 98.3 F 130 H 20 129/88 05/07/21 18:21 130 H 18 145/84 05/07/21 16:47 130 H 20 174/107 05/07/21 15:36 133 H 18 175/97 BP BP BP Pulse Ox 05/08/21 14:18 95 05/08/21 14:07 05/08/21 13:43 92 L 05/08/21 12:54 92 L 05/08/21 12:44 78 L 05/08/21 12:00 138/64 91 L 05/08/21 09:58 90 L 05/08/21 08:45 104/86 136/80 97 05/08/21 06:10 94 L 05/08/21 04:25 98 05/08/21 00:00 95 05/07/21 23:00 05/07/21 22:15 95 05/07/21 20:17 93 L 05/07/21 18:21 94 L 05/07/21 16:47 95 05/07/21 15:36 96 Intake and Output 05/07/21 05/08/21 05/08/21 22:59 06:59 14:59 Intake Total 150 Balance 150 Intake: Oral 150 GENERAL: The patient is a morbid obese gentleman, lying in bed and does not seem in acute distress. CHEST: The heart rate is regular rate rhythm. No murmurs to auscultation. LUNG: Clear to auscultation bilaterally no wheezing noted throughout. Not labored breathing. He is on BiPAP machine ABDOMEN/GI: Bowel sounds present in all 4 quadrants. No tenderness to palpation throughout. NEUROLOGICAL: Limited because of his condition. Higher mental function: The patient is somnolent and briefly would open his eyes to painful stimuli. Not verbalizing or following commands. Cranial nerves: The pupils are round, equal, pinpoint, 1-2mm and reactive to light. Primary gaze is midline. No facial droop. Could not assess rest because of his condition. Motor: Gait is deferred. The strength is withdrawls all extremities to painful stimuli equally (upper > lowers). could not assess individual muscles because of his condition. Normal tone and bulk. Cerebellum: Could not assess. Sensation: Could not assess light touch but withdrawl to painful stimuli symmetrically. Reflexes (right/left): 1+ throughout. Plantars are mute bilaterally. Results - Laboratory Findings CBC and BMP: 05/07/21 14:47 05/07/21 14:47 Abnormal Lab Findings: Abnormal Labs 05/07/21 05/07/21 05/07/21 14:47 14:47 14:47 Lymphocytes # 0.9 L ABG pH ABG pCO2 ABG pO2 ABG HCO3 ABG Total CO2 ABG O2 Saturation Carbon Dioxide 33 H BUN 28 H Glucose 146 H POC Glucose (mg/dL) Troponin I 0.049 H* HDL Cholesterol 05/07/21 05/07/21 05/08/21 20:08 23:25 03:11 Lymphocytes # ABG pH ABG pCO2 ABG pO2 ABG HCO3 ABG Total CO2 ABG O2 Saturation Carbon Dioxide BUN Glucose POC Glucose (mg/dL) Troponin I 0.045 H* 0.043 H* HDL Cholesterol 34.90 L 05/08/21 05/08/21 12:03 12:04 Lymphocytes # ABG pH 7.16 L* ABG pCO2 109 H* ABG pO2 65 L ABG HCO3 39 H ABG Total CO2 42 H ABG O2 Saturation 89.6 L Carbon Dioxide BUN Glucose POC Glucose (mg/dL) 139 H Troponin I HDL Cholesterol Assessment and Plan Assessment: Questionable reported syncopal episode. Does not appear seizure (there is no reactive on blood test). Altered mental status likely due to hypoxic/hypercapnic encephalopathy. Atrial flutter with RVR Acute on chronic hypoxic/hypercapnic respiratory failure on BiPAP COPD Nicotine dependence Morbid obesity Plan: I ordered the CT of the brain. Ordered an urgent EEG. I'll not start the patient on antiepileptic drugs unless there is epileptiform discharges or seizure on the EEG. I commended repeating orthostatic with lying sitting standing. We'll consider getting MRI of the brain down the line if the patient continues to have altered mental status and further syncopal episodes to rule out any intracranial process. Continue Cardiac monitoring Pulmonary team is on board Cardiology team is on board We'll defer the rest of the medical management to the primary/ICU team The plan is discussed with the patient's nurse. Thank you for the consultation. Chaz Maciel M.D. Neuro-hospitalist Time with Patient: Greater than 30
[2021-05-08] MEDS: FORMOTEROL FUMARATE 20 MCG/2 ML NEBU INHALATION SCH ×2 (15:49→20:27)
[2021-05-08] MEDS: BUDESONIDE 1 MG/2 ML NEBU INHALATION SCH ×2 (15:49→20:27)
[2021-05-08] MEDS: IPRATROPIUM-ALBUTEROL 3 ML NEB INHALATION SCH ×2 (15:50→20:27)
--- NOTE | 2021-05-08 15:55 | CT ---
EXAMINATION TYPE: CT brain wo con DATE OF EXAM: 05/08/2021 HISTORY: Mental status changes. CT DLP: 1202.4 mGycm. Automated Exposure Control for Dose Reduction was Utilized. TECHNIQUE: CT scan of the head is performed without contrast. COMPARISON: None. FINDINGS: There is no acute intracranial hemorrhage or midline shift identified. There is mild diff use ventricular and sulcal prominence consistent with diffuse age-related cerebral atrophy. Doyle-whit e matter differentiation is maintained. The globes are intact and the visualized sinuses are clear. IMPRESSION: No acute intracranial hemorrhage or midline shift. There is mild diffuse age-related ce rebral atrophy incidentally noted.
[2021-05-08 16:55] LABS: VBG PH 7.17 (7.31-7.41)
--- NOTE | 2021-05-08 18:15 | P.HPIM ---
History of Present Illness H&P Date: 05/08/21 Chief Complaint: Shortness of breath This is a 56-year-old patient who follows that Anu Mirza. Patient presented to the ER yesterday evening becoming more short of breath and having multiple syncopal episodes. I told the ER physician that he been having falls last coup le of weeks and simply passes out. He's had a bruising over his anterior chest from these falls. Denies any fever and chills. He short of breath and significant exertional dyspnea. Also some palpitations. Patient is a smoker. When I came to see the patient patient somewhat lethargic. Barely arousable. Breathing a bit heavy but not in distress. Tachycardic. I ordered blood gases. Review of systems cannot be done as patient rather lethargic Past medical history to include: Atrial fibrillation, COPD, sleep apnea, depression smoker Social history: Smoker Family history: Patient lethargic. Unable to obtain Physical examination: VITAL SIGNS: 98.2, 72, 18, 136/80, 97% on 5 L] GENERAL: BMI 47.5, laying in bed, breathing a bit heavy lethargic barely arousable. EYES: Pupils equal. Conjunctiva normal. HEENT: External appearance of nose and ears normal, oral cavity: Unable to assess. NECK: JVD not raised; masses not palpable. HEART: First and second heart sounds are normal; edema present. LUNGS: Respiratory rate increased; decreased breath sounds. ABDOMEN: Soft, distended nontender, liver spleen not palpable, no masses palpable. CHEST wall: Bruising on the left anterior chest wall PSYCH: [Unable to assess patient lethargic l. NEUROLOGICAL: [Cranial nerves grossly intact; no facial asymmetry, moving his limbs. LYMPHATICS: No lymph nodes palpable in the axilla and neck INVESTIGATIONS, reviewed in the clinical context: ABG: PH 7.16 pCO2 109 pO2 65 on 4 L White count 8.4 hemoglobin 15.9 platelets 186 potassium 4.6 BUN 28 creatinine 0.4 Troponin I 0.049, 0.045, 0.043 ProBNP 1390 LDL 92.3 TSH 1.7 UA negative Coronavirus [PCR]: Not detected Chest x-ray film personally reviewed by me-cardiomegaly, some infiltrates Chest CTA: Moderate cardiomegaly. Bilateral basilar pulmonary interstitial infiltrates. No PE. EKG tracing personally reviewed by me-sinus tachycardia. Some T wave changes. 2-D echocardiogram: Suboptimal views. EF 55-60%. Right ventricle moderately enlarged. Assessment and plan: -Acute hypoxic and hypercapnic respiratory failure from COPD exacerbation and a smoker BiPAP. Pulmonary consultation. -Acute hypoxic hypercapnic metabolic encephalopathy Follow clinically -Acute COPD exacerbation in a current smoker DuoNeb 4 times a day, Pulmicort 1 mg twice a day, Perforomist 20 g twice a day. IV Solu-Medrol -Chronic nicotine dependence, cigarette smoker Nicotine patch 21 -Depression not otherwise specified Wellbutrin 150 mg daily -Mild acute congestive heart failure exacerbation from diastolic dysfunction EF 55-60% IV Lasix. Cardiology consultation -Troponinemia, from hemodynamic mismatch. Follow-up with cardiology Patient started on DuoNeb, nebulized steroids, long-acting. Diabetes. IV Solu- Medrol. BiPAP. Pulmonary consulted. Patient will need to be moved to ICU. Cardiology consultation. Given the complexity and severity of patient's condition expect the patient to be in the hospital at least for 2 overnights Past Medical History Past Medical History: Atrial Fibrillation, Asthma, Sleep Apnea/CPAP/BIPAP History of Any Multi-Drug Resistant Organisms: None Reported Past Surgical History: Hernia Repair, Joint Replacement, Orthopedic Surgery Additional Past Surgical History / Comment(s): rt hip, rt foot Past Psychological History: Depression Smoking Status: Current every day smoker Past Alcohol Use History: None Reported, Unable to Obtain Medications and Allergies Home Medications Medication Instructions Recorded Confirmed Type Albuterol Inhaler [Ventolin Hfa 2 puff INHALATION RT-Q6H PRN 05/07/21 05/07/21 History Inhaler] Fluticasone Propion/Salmeterol 1 puff INHALATION RT-BID 05/07/21 05/07/21 History [Wixela 250-50 Inhub] Furosemide [Lasix] 20 mg PO DAILY 05/07/21 05/07/21 History Loratadine [Claritin] 10 mg PO DAILY PRN 05/07/21 05/07/21 History Naproxen Sodium 440 mg PO Q12H PRN 05/07/21 05/07/21 History Potassium Gluconate [Potassium 99 mg PO DAILY 05/07/21 05/07/21 History Gluconate ER] buPROPion XL [Wellbutrin XL] 150 mg PO DAILY 05/07/21 05/07/21 History Allergies Allergy/AdvReac Type Severity Reaction Status Date / Time No Known Allergies Allergy Verified 05/07/21 15:51 Physical Exam Vitals: Vital Signs Temp Pulse Pulse Pulse Pulse Resp BP 05/08/21 09:58 05/08/21 06:10 71 16 141/95 05/08/21 04:25 98.2 F 67 16 140/80 05/08/21 00:00 69 20 156/106 05/07/21 23:00 68 20 05/07/21 22:15 82 18 142/67 05/07/21 20:17 98.3 F 130 H 20 129/88 05/07/21 20:00 67 67 72 18 05/07/21 18:21 130 H 18 145/84 05/07/21 16:47 130 H 20 174/107 05/07/21 15:36 133 H 18 175/97 05/07/21 14:23 99.5 F 134 H 24 138/79 BP BP Pulse Ox 05/08/21 09:58 99 05/08/21 06:10 94 L 05/08/21 04:25 98 05/08/21 00:00 95 05/07/21 23:00 05/07/21 22:15 95 05/07/21 20:17 93 L 05/07/21 20:00 104/86 136/80 97 05/07/21 18:21 94 L 05/07/21 16:47 95 05/07/21 15:36 96 05/07/21 14:23 87 L Results CBC & Chem 7: 05/07/21 14:47 05/07/21 14:47 Labs: Abnormal Lab Results - Last 24 Hours (Table) 05/07/21 05/07/21 05/07/21 Range/Units 14:47 14:47 14:47 Lymphocytes # 0.9 L (1.0-4.8) k/uL Carbon Dioxide 33 H (22-30) mmol/L BUN 28 H (9-20) mg/dL Glucose 146 H (74-99) mg/dL Troponin I 0.049 H* (0.000-0.034) ng/mL 05/07/21 05/07/21 Range/Units 20:08 23:25 Lymphocytes # (1.0-4.8) k/uL Carbon Dioxide (22-30) mmol/L BUN (9-20) mg/dL Glucose (74-99) mg/dL Troponin I 0.045 H* 0.043 H* (0.000-0.034) ng/mL
[2021-05-08] MEDS: ENOXAPARIN 40 MG/0.4 ML SYRINGE SQ SCH (18:16)
[2021-05-08] MEDS: methylPREDNISolone SOD SUCCI 40 MG/ML 1 ML VIAL IV SCH ×2 (18:18→23:45)
[2021-05-08 21:40] LABS: Glucose,Whole Blood 184 mg/dL (75-99)
[2021-05-08 21:48] LABS: ABG Base Excess 13.1 mmol/L; ABG HCO3 38 mmol/L (21-25); ABG Oxygen Saturation 90.7 % (94-97); ABG PCO2 67 mmHg (35-45); ABG PH 7.37 (7.35-7.45); ABG TCO2 41 mmol/L (19-24); Allen Test Performed? Yes
[2021-05-08 21:52] LABS: ABG PO2 56 mmHg (83-108)
[2021-05-08] MEDS: NICOTINE 21MG/24HR PATCH TRANSDERM SCH (23:22)
[2021-05-08] MEDS: DEXMEDETOMIDINE/0.9% NACL(PMX) 400 MCG in EMPTY BAG 1 BAG IV SCH (23:28)
[2021-05-09] MEDS: DEXMEDETOMIDINE/0.9% NACL(PMX) 400 MCG in EMPTY BAG 1 BAG IV SCH ×3 (02:19→06:01)
[2021-05-09 06:16] LABS: Basophils % (A) 0 %; Eosinophils % (A) 0 %; HCT 50.5 % (39.0-53.0); HGB 16.2 gm/dL (13.0-17.5); Lymphocytes # (A) 0.4 k/uL (1.0-4.8); Lymphocytes % (A) 4 %; MCH 28.6 pg (25.0-35.0); MCV 89.2 fL (80.0-100.0); Mean Platelet Volume 8.2; Monocytes # (A) 0.3 k/uL (0-1.0); Monocytes % (A) 3 %; Neutrophils # (A) 7.8 k/uL (1.3-7.7); Neutrophils % (A) 92 %; Platelet Count 188 k/uL (150-450); RBC 5.65 m/uL (4.30-5.90); WBC 8.5 k/uL (3.8-10.6)
[2021-05-09 06:38] LABS: African American GFR (CKD) >90 (>60 ml/min/1.73 sqM); Anion Gap 5 mmol/L; Blood Urea Nitrogen 29 mg/dL (9-20); Calcium 8.6 mg/dL (8.4-10.2); Carbon Dioxide 34 mmol/L (22-30); Chloride 98 mmol/L (98-107); Glucose 207 mg/dL (74-99); Magnesium 2.3 mg/dL (1.6-2.3); Non-African American GFR(CKD) 87 (>60 ml/min/1.73 sqM); Potassium 5.7 mmol/L (3.5-5.1); Sodium 137 mmol/L (137-145)
[2021-05-09] MEDS: FUROSEMIDE 10 MG/ML 4 ML VIAL IV SCH ×2 (06:49→20:07)
[2021-05-09] MEDS: FORMOTEROL FUMARATE 20 MCG/2 ML NEBU INHALATION SCH ×2 (08:20→20:59)
[2021-05-09] MEDS: IPRATROPIUM-ALBUTEROL 3 ML NEB INHALATION SCH ×4 (08:20→21:00)
[2021-05-09] MEDS: BUDESONIDE 1 MG/2 ML NEBU INHALATION SCH ×2 (08:20→20:59)
[2021-05-09] MEDS: methylPREDNISolone SOD SUCCI 40 MG/ML 1 ML VIAL IV SCH ×2 (08:52→17:05)
[2021-05-09] MEDS: ENOXAPARIN 40 MG/0.4 ML SYRINGE SQ SCH (08:53)
[2021-05-09] MEDS: NICOTINE 21MG/24HR PATCH TRANSDERM SCH (09:06)
--- NOTE | 2021-05-09 09:18 | P.PN ---
Subjective Progress Note Date: 05/09/21 56-year-old male patient, morbidly obese with a BMI of 47.5, known history of COPD/asthma, a chronic smoker also with questionable history of atrial fibrillation. The patient came into the hospital awake and alert and the patient was having multiple syncopal episodes. In the emergency, the patient was found to be in atrial flutter with RVR. He subsequently converted to normal sinus mechanism. During the course of his emergency stay, the patient became progressively more unresponsive. He is known to have obstructive sleep apnea and apparently uses a CPAP machine at home. He doesn't not available. The patient became quite obtunded. Her blood gases showed a pH of 7.19 with a pCO2 of 109 and pO2 of 65. Urinalysis was negative. Blood work showed troponin 3 of 0.4, his white cell count was 8.4 with a hemoglobin of 15.9 and platelets of 186. Chest x-ray showed massive cardiomegaly with mild four-vessel congestion. CT angiogram showed no evidence of any pulmonary embolism. There was some limited hazy infiltrate in the lung bases bilaterally. Serum bicarb is 33. BUN is at 28 with a creatinine of 0.9. Based on the current blood gases, the patient was placed on a BiPAP at a pressure of 16/8 cm of water with an FiO2 of 40%. His current pulse ox is a 99%. He is respiratory rate is around 21. He is able to generate a tidal volume of 420 mL. the patient's: COVID 19 testing was essentially negative. The patient is seen today 05/09/2021 in follow-up in the intensive care unit. He remains on BiPAP 16/8 and 40% FiO2. He did have periods of awake and alertness throughout the night he was somewhat aggressive and swinging at the staff. He was placed on Precedex currently at 1 mcg/kg/m and is more somnolent this morning. He does arouse to verbal stimuli. He drifts off easily. He was asking what time it was this morning. CT scan of the brain revealed no acute intracranial hemorrhage or midline shift. There is mild diffuse age-related cerebral atrophy noted. White count 8.5. Hemoglobin 16.2. Sodium 137. Potassium 5.7. Creatinine 0.96. Glucose 207. Low blood gases on 44% FiO2 revealed a PaO2 of 56, pCO2 67 and a pH of 7.37. EEG is pending. He remains on DuoNeb inhalations, Pulmicort and Perforomist inhalations, IV Solu-Medrol. Ceftriaxone for empiric antibiotics. He remains on Lasix 40 mg IV every 12 hours. NicoDerm patch is in place. Objective - Vital Signs Vital signs: Vital Signs Temp 98 F 05/09/21 04:00 Pulse 63 05/09/21 08:41 Resp 20 05/09/21 07:00 BP 151/96 05/09/21 07:00 Pulse Ox 89 L 05/09/21 07:00 Intake & Output 05/08/21 05/09/21 05/09/21 18:59 06:59 18:59 Intake Total 150 726.095 26.195 Output Total 800 640 125 Balance -650 86.095 -98.805 Weight 150 kg Intake: Intake, IV Titration 226.095 26.195 Amount Dexmedetomidine/0.9% NaCl 226.095 26.195 (Pmx) 400 mcg In Empty Bag 1 bag @ 0.2 MCG/KG/HR 7.938 mls/hr IV .[id number] [facility] Rx#:[id number] Oral 150 500 Output: Urine 800 640 125 Other: Voiding Method Indwelling Catheter - Exam Morbidly obese, 56-year-old male patient, currently on a BiPAP, somnolent and lethargic yet arousable upon verbal stimulation. He is able to tolerate full face BiPAP mask. Head exam was generally normal. There was no scleral icterus or corneal arcus. Mucous membranes were moist. Neck was supple and without jugular venous distension, thyromegaly, or carotid bruits. Carotids were easily palpable bilaterally. There was no adenopathy. The patient has significant crowding of the posterior pharynx. He has a Mallampati class IV. He has cyanosis of the mucosal membranes. Lungs sounds are diminished bilaterally and there crackles at the lung bases. Few scattered expiratory wheezes. Cardiac exam revealed the PMI to be normally situated and sized. The rhythm was regular and no extrasystoles were noted during several minutes of auscultation. The first and second heart sounds were normal and physiologic splitting of the second heart sound was noted. There were no murmurs, rubs, clicks, or gallops. Abdomen abdomenAbdominal exam revealed normal bowel sounds. The abdomen was soft , non-tender, and without masses, organomegaly, or appreciable enlargement of the abdominal aorta. And the patient has a tiny umbilical hernia Extremities show trace edema and there is no cyanosis or clubbing. Neurologically the patient is and CO2 narcosis at this point in time. Withdraws to painful examination all 4 extremities. Pupils are equal and reactive to light. Very much somnolent and sleepy, does not follow commands and regular basis. - Labs CBC & Chem 7: 05/09/21 05:39 05/09/21 05:39 Labs: Abnormal Lab Results - Last 24 Hours (Table) 05/08/21 05/08/21 05/08/21 Range/Units 03:11 12:03 12:04 Neutrophils # (1.3-7.7) k/uL Lymphocytes # (1.0-4.8) k/uL ABG pH 7.16 L* (7.35-7.45) ABG pCO2 109 H* (35-45) mmHg ABG pO2 65 L (83-108) mmHg ABG HCO3 39 H (21-25) mmol/L ABG Total CO2 42 H (19-24) mmol/L ABG O2 Saturation 89.6 L (94-97) % VBG pH (7.31-7.41) VBG pCO2 (37-51) mmHg VBG HCO3 (24-28) mmol/L Potassium (3.5-5.1) mmol/L Carbon Dioxide (22-30) mmol/L BUN (9-20) mg/dL Glucose (74-99) mg/dL POC Glucose (mg/dL) 139 H (75-99) mg/dL HDL Cholesterol 34.90 L (40.00-60.00) mg/dL 05/08/21 05/08/21 05/08/21 Range/Units 16:05 21:38 21:47 Neutrophils # (1.3-7.7) k/uL Lymphocytes # (1.0-4.8) k/uL ABG pH (7.35-7.45) ABG pCO2 67 H (35-45) mmHg ABG pO2 56 L* (83-108) mmHg ABG HCO3 38 H (21-25) mmol/L ABG Total CO2 41 H (19-24) mmol/L ABG O2 Saturation 90.7 L (94-97) % VBG pH 7.17 L* (7.31-7.41) VBG pCO2 104 H* (37-51) mmHg VBG HCO3 36 H (24-28) mmol/L Potassium (3.5-5.1) mmol/L Carbon Dioxide (22-30) mmol/L BUN (9-20) mg/dL Glucose (74-99) mg/dL POC Glucose (mg/dL) 184 H (75-99) mg/dL HDL Cholesterol (40.00-60.00) mg/dL 05/09/21 05/09/21 Range/Units 05:39 05:39 Neutrophils # 7.8 H (1.3-7.7) k/uL Lymphocytes # 0.4 L (1.0-4.8) k/uL ABG pH (7.35-7.45) ABG pCO2 (35-45) mmHg ABG pO2 (83-108) mmHg ABG HCO3 (21-25) mmol/L ABG Total CO2 (19-24) mmol/L ABG O2 Saturation (94-97) % VBG pH (7.31-7.41) VBG pCO2 (37-51) mmHg VBG HCO3 (24-28) mmol/L Potassium 5.7 H (3.5-5.1) mmol/L Carbon Dioxide 34 H (22-30) mmol/L BUN 29 H (9-20) mg/dL Glucose 207 H (74-99) mg/dL POC Glucose (mg/dL) (75-99) mg/dL HDL Cholesterol (40.00-60.00) mg/dL Assessment and Plan Assessment: 1 Acute on chronic hypoxic/hypercapnic respiratory failure currently on a BiPAP for respiratory support at a pressure of 16/8 cm of water. Chest x-ray was reviewed and this shows cardiomegaly and mild pulmonary vessel congestion. CT angiogram is negative for pulmonary embolism. No evidence of any pneumonia. Although the patient has some increased haziness and pulmonary vascular markings in the lung bases bilaterally. Consider underlying COPD exacerbation in the possibility of substance abuse/drug abuse causing hypoventilation contributing to his respiratory failure. He did become more awake with aggressive behavior and swinging at staff. He is currently on Precedex at 1 mcg/kg/m. Arousable with verbal stimuli. EEG is pending 2 Acute BiPAP dependent respiratory failure, we'll try to avoid intubation at this point in time, remains on IV diuretics 3 CO2 narcosis with altered mentation 4 Obstructive sleep apnea, and the patient has been on CPAP pressure of 10 cm of water on outpatient basis. He does have periodic limb movement activity 5 Obesity with BMI 47.5 6 COPD 7 A. fib/flutter with rapid ventricular response current rhythm is sinus 8 History of paroxysmal atrial fibrillation 9 History of bronchial asthma 10 History of osteoarthritis 11 History of umbilical hernia 12 Chronic and ongoing tobacco dependence Plan: The patient was seen and evaluated by Dr. Gregory Requiring Precedex for aggressive behavior and agitation Easily arousable with verbal stimuli EEG is pending Remains on bronchodilators, IV Solu-Medrol Empiric antibiotics in the form of ceftriaxone Eliquis currently on hold Attempt to wean off the BiPAP and further assess his neurologic status We'll continue to monitor him here in the ICU I, the cosigning physician, performed a history & physical examination of the patient. Lungs sounds crackles in the bilateral posterior bases, diminished. Maintaining good O2 saturations in the 90s on BiPAP 16/8 and 40% FiO2. I discussed the assessment and plan of care with my nurse practitioner, Lindsay Antoine. I attest to the above note as dictated by her.
[2021-05-09 10:16] LABS: Urine Alcohol Negative (Negative); Urine Barbiturate Negative (Negative); Urine Cocaine Positive (Negative); Urine Methadone Negative (Negative); Urine Opiates Negative (Negative); Urine Phencyclidine Negative (Negative)
[2021-05-09 11:43] LABS: ABG Base Excess 14.2 mmol/L; ABG HCO3 39 mmol/L (21-25); ABG PCO2 58 mmHg (35-45); ABG PH 7.43 (7.35-7.45); ABG TCO2 40 mmol/L (19-24); Allen Test Performed? Yes
[2021-05-09 11:44] LABS: ABG PO2 53 mmHg (83-108)
[2021-05-09] MEDS ORDERED: INSULIN ASPART (NovoLOG) 100 UNIT/ML VIAL SQ SCH (12:00)
--- NOTE | 2021-05-09 14:43 | P.PN ---
Progress Note - Text Progress Note Date: 05/09/21 Chief Complaint: Shortness of breath This is a 56-year-old patient who follows that Anu Mirza. Patient presented to the ER yesterday evening becoming more short of breath and having multiple syncopal episodes. I told the ER physician that he been having falls last couple of weeks and simply passes out. He's had a bruising over his anterior chest from these falls. Denies any fever and chills. He short of breath and significant exertional dyspnea. Also some palpitations. Patient is a smoker. When I came to see the patient patient somewhat lethargic. Barely arousable. Breathing a bit heavy but not in distress. Tachycardic. I ordered blood gases. Admitted with acute hypoxic and hypercapnic respiratory failure from COPD exacerbation, metabolic encephalopathy, COPD exacerbation, mild congestive heart exacerbation, pneumonia, troponin positive from hemodynamic mismatch. Patient is put on a BiPAP. Moved to the ICU. DuoNeb. IV Solu-Medrol. IV ceftriaxone. 05/09/2021: ICU: On BiPAP the setting of 16/8, 40%, rate of 12. Telemetry shows sinus rhythm. Patient is on Precedex 0.2. For agitation. Lethargic. But arousable. Review of systems cannot be done as patient rather lethargic Active Medications Hydrocodone Bitart/Acetaminophen (Hydrocodone/Apap 5-325mg 1 Each Tab) 1 each PO Q6HR PRN PRN Reason: Pain Last Admin: 05/08/21 01:00 Dose: 1 each Documented by: Albuterol Sulfate (Albuterol Nebulized 2.5 Mg/3 Ml) 2.5 mg INHALATION RT-Q6H PRN PRN Reason: Shortness Of Breath Albuterol/Ipratropium (Ipratropium-Albuterol 3 Ml Neb) 3 ml INHALATION RT-QID [facility] Last Admin: 05/09/21 11:48 Dose: 3 ml Documented by: Aspirin (Aspirin 81 Mg) 81 mg PO DAILY [facility] Budesonide (Budesonide 1 Mg/2 Ml Nebu) 1 mg INHALATION RT-BID [facility] Last Admin: 05/09/21 08:20 Dose: 1 mg Documented by: Bupropion HCl (Bupropion Xl 150 Mg Tab.Er.24h) 150 mg PO DAILY [facility] Last Admin: 05/08/21 13:51 Dose: Not Given Documented by: Enoxaparin Sodium (Enoxaparin 40 Mg/0.4 Ml Syringe) 40 mg SQ DAILY [facility] Last Admin: 05/09/21 08:53 Dose: 40 mg Documented by: Formoterol Fumarate (Formoterol Fumarate 20 Mcg/2 Ml Nebu) 20 mcg INHALATION RT-BID [facility] Last Admin: 05/09/21 08:20 Dose: 20 mcg Documented by: Furosemide (Furosemide 10 Mg/Ml 4 Ml Vial) 40 mg IV Q12HR [facility] Last Admin: 05/09/21 06:49 Dose: 40 mg Documented by: Ceftriaxone Sodium 2 gm/ (Sodium Chloride) 50 mls @ 100 mls/hr IVPB Q24HR [facility] Last Admin: 05/09/21 08:53 Dose: 100 mls/hr Documented by: Dexmedetomidine HCl 400 mcg/ (IV Solution) 100 mls @ 7.938 mls/hr IV .[id number] [facility]; Protocol Last Titration: 05/09/21 07:03 Dose: 1 mcg/kg/hr, 39.689 mls/hr Documented by: Insulin Aspart (Insulin Aspart (Novolog) 100 Unit/Ml Vial) 0 unit SQ Q6H [facility]; Protocol Methylprednisolone Sodium Succinate (Methylprednisolone Sod Succi 40 Mg/Ml 1 Ml Vial) 40 mg IV Q8HR [facility] Last Admin: 05/09/21 08:52 Dose: 40 mg Documented by: Metoprolol Tartrate (Metoprolol Tartrate 25 Mg Tab) 25 mg PO BID [facility] Last Admin: 05/08/21 23:28 Dose: 25 mg Documented by: Nicotine (Nicotine 21mg/24hr Patch) 1 patch TRANSDERM DAILY [facility] Last Admin: 05/09/21 09:06 Dose: 1 patch Documented by: Nitroglycerin (Nitroglycerin Sl Tabs 0.4 Mg Tab) 0.4 mg SUBLINGUAL Q5M PRN PRN Reason: Chest Pain Past medical history to include: Atrial fibrillation, COPD, sleep apnea, depression smoker Social history: Smoker Family history: Patient lethargic. Unable to obtain Physical examination: VITAL SIGNS: Afebrile, 62, 17, 143/84, 91% GENERAL: laying in bed, breathing a bit heavy, lethargic EYES: Pupils equal. Conjunctiva normal. HEENT: External appearance of nose and ears normal, oral cavity: Unable to assess. NECK: JVD not raised; masses not palpable. HEART: First and second heart sounds are normal; decreased edema LUNGS: Respiratory rate increased; decreased breath sounds. ABDOMEN: Soft, distended nontender, liver spleen not palpable, no masses palpable. CHEST wall: Bruising on the left anterior chest wall PSYCH: Unable to assess patient lethargic NEUROLOGICAL: [Cranial nerves grossly intact; no facial asymmetry, INVESTIGATIONS, reviewed in the clinical context: May 09: White count 8.5 hemoglobin 16.2 platelets 188 ABG: PH 7.43 pCO2 58, pO2 53. Potassium 5.7 BUN 29 creatinine 0.96. HbA1c 6.1 CT brain [without contrast on May 08 dose bracket: Mild diffuse age-related cerebral atrophy ABG: PH 7.16 pCO2 109 pO2 65 on 4 L White count 8.4 hemoglobin 15.9 platelets 186 potassium 4.6 BUN 28 creatinine 0.4 Troponin I 0.049, 0.045, 0.043 ProBNP 1390 LDL 92.3 TSH 1.7 UA negative Coronavirus [PCR]: Not detected Chest x-ray film personally reviewed by me-cardiomegaly, some infiltrates Chest CTA: Moderate cardiomegaly. Bilateral basilar pulmonary interstitial infiltrates. No PE. EKG tracing personally reviewed by me-sinus tachycardia. Some T wave changes. 2-D echocardiogram: Suboptimal views. EF 55-60%. Right ventricle moderately enlarged. Assessment and plan: -Acute hypoxic and hypercapnic respiratory failure from COPD exacerbation and a smoker: Slow to respond BiPAP.@16/8. 40%. Rate of 12. -Acute hypoxic hypercapnic metabolic encephalopathy: Slow to respond Follow clinically -Acute COPD exacerbation in a current smoker: Slow to respond DuoNeb 4 times a day, Pulmicort 1 mg twice a day, Perforomist 20 g twice a day. IV Solu-Medrol -Chronic nicotine dependence, cigarette smoker Nicotine patch 21 -Depression not otherwise specified Wellbutrin 150 mg daily -Mild acute congestive heart failure exacerbation from diastolic dysfunction EF 55-60% IV Lasix 40 mg every 12. -Troponinemia, from hemodynamic mismatch. Follow-up with cardiology Continue DuoNeb, nebulized steroids, long-acting. IV Solu-Medrol. BiPAP. Follow labs closely. Precedex for agitation. Remains critically ill.
--- NOTE | 2021-05-09 15:02 | P.PN ---
Subjective Progress Note Date: 05/09/21 This 56-year-old gentleman with history of obesity and COPD and respiratory failure is admitted to the hospital with near syncopal episodes and dizziness. Patient has problems with agitation and required sedation. Is barely arousable. His maintaining sinus rhythm. Patient was in atrial flutter on admission but currently maintaining sinus rhythm. He is not on anticoagulation because of history of recurrent falls. His echocardiogram showed normal LV function. He is being followed by pulmonology. Continue current medical therapy. From a cardiac standpoint, will stay with current therapy. May not be an ideal candidate for anticoagulation Objective - Vital Signs Vital signs: Vital Signs Temp 98.7 F 05/09/21 08:00 Pulse 63 05/09/21 12:01 Resp 17 05/09/21 10:00 BP 143/84 05/09/21 10:00 Pulse Ox 91 L 05/09/21 10:00 Intake & Output 05/08/21 05/09/21 05/09/21 18:59 06:59 18:59 Intake Total 150 726.095 186.195 Output Total 800 640 825 Balance -650 86.095 -638.805 Weight 150 kg Intake: IV 160 NS @ 20ml/hr 60 cefTRIAXone 2 gm In 100 Sodium Chloride 0.9% 50 ml @ 100 mls/hr IVPB Q24HR [facility] Rx#:[id number] Intake, IV Titration 226.095 26.195 Amount Dexmedetomidine/0.9% NaCl 226.095 26.195 (Pmx) 400 mcg In Empty Bag 1 bag @ 0.2 MCG/KG/HR 7.938 mls/hr IV .[id number] [facility] Rx#:[id number] Oral 150 500 Output: Urine 800 640 825 Other: Voiding Method Indwelling Catheter Indwelling Catheter - Exam GENERAL EXAM: Patient is sleepy and barely arousable. Patient is also deaf HEENT: Normocephalic. Normal reaction of pupils, equal size, normal range of extraocular motion. No erythema or exudates in the throat. NECK: No masses, no nuchal rigidity. CHEST: No chest wall deformity. LUNGS: Diminished air exchange HEART: S1 and S2 normal with no audible mumurs or gallops. Regular rhythm, femorals equal on both sides.. ABDOMEN: No hepatosplenomegaly, normal bowel sounds, no guarding or rigidity. SKIN: No rashes CENTRAL NERVOUS SYSTEM: Deferred to neurology EXTREMITIES: No cyanosis, clubbing or edema. - Labs CBC & Chem 7: 05/09/21 05:39 05/09/21 05:39 Labs: Abnormal Lab Results - Last 24 Hours (Table) 05/08/21 05/08/21 05/08/21 Range/Units 14:40 16:05 21:38 Neutrophils # (1.3-7.7) k/uL Lymphocytes # (1.0-4.8) k/uL ABG pCO2 (35-45) mmHg ABG pO2 (83-108) mmHg ABG HCO3 (21-25) mmol/L ABG Total CO2 (19-24) mmol/L ABG O2 Saturation (94-97) % VBG pH 7.17 L* (7.31-7.41) VBG pCO2 104 H* (37-51) mmHg VBG HCO3 36 H (24-28) mmol/L Potassium (3.5-5.1) mmol/L Carbon Dioxide (22-30) mmol/L BUN (9-20) mg/dL Glucose (74-99) mg/dL POC Glucose (mg/dL) 184 H (75-99) mg/dL Hemoglobin A1c (4.0-6.0) % Urine Cocaine Screen Positive A (Negative) 05/08/21 05/09/21 05/09/21 Range/Units 21:47 05:39 05:39 Neutrophils # 7.8 H (1.3-7.7) k/uL Lymphocytes # 0.4 L (1.0-4.8) k/uL ABG pCO2 67 H (35-45) mmHg ABG pO2 56 L* (83-108) mmHg ABG HCO3 38 H (21-25) mmol/L ABG Total CO2 41 H (19-24) mmol/L ABG O2 Saturation 90.7 L (94-97) % VBG pH (7.31-7.41) VBG pCO2 (37-51) mmHg VBG HCO3 (24-28) mmol/L Potassium 5.7 H (3.5-5.1) mmol/L Carbon Dioxide 34 H (22-30) mmol/L BUN 29 H (9-20) mg/dL Glucose 207 H (74-99) mg/dL POC Glucose (mg/dL) (75-99) mg/dL Hemoglobin A1c (4.0-6.0) % Urine Cocaine Screen (Negative) 05/09/21 05/09/21 Range/Units 05:39 11:41 Neutrophils # (1.3-7.7) k/uL Lymphocytes # (1.0-4.8) k/uL ABG pCO2 58 H (35-45) mmHg ABG pO2 53 L* (83-108) mmHg ABG HCO3 39 H (21-25) mmol/L ABG Total CO2 40 H (19-24) mmol/L ABG O2 Saturation 90.0 L (94-97) % VBG pH (7.31-7.41) VBG pCO2 (37-51) mmHg VBG HCO3 (24-28) mmol/L Potassium (3.5-5.1) mmol/L Carbon Dioxide (22-30) mmol/L BUN (9-20) mg/dL Glucose (74-99) mg/dL POC Glucose (mg/dL) (75-99) mg/dL Hemoglobin A1c 6.1 H (4.0-6.0) % Urine Cocaine Screen (Negative) Assessment and Plan (1) Recurrent syncope Current Visit: Yes Status: Acute Code(s): R55 - SYNCOPE AND COLLAPSE SNOMED Code(s): 917419545 (2) Respiratory failure Current Visit: Yes Status: Acute Code(s): J96.90 - RESPIRATORY FAILURE, UNSP, UNSP W HYPOXIA OR HYPERCAPNIA SNOMED Code(s): 449077047 (3) Paroxysmal atrial flutter Current Visit: Yes Status: Acute Code(s): I48.92 - UNSPECIFIED ATRIAL FLUTTER SNOMED Code(s): 633540833 Plan: Continue current medical therapy. Monitor for any arrhythmias. Obtain information from previous admissions and can operator
[2021-05-09 17:02] LABS: Glucose,Whole Blood 144 mg/dL (75-99)
[2021-05-09] MEDS: ASPIRIN 81 MG PO SCH (17:04)
[2021-05-09] MEDS: buPROPion XL 150 MG TAB.ER.24H PO SCH (17:04)
[2021-05-09] MEDS: METOPROLOL TARTRATE 25 MG TAB PO SCH ×2 (17:05→20:07)
--- NOTE | 2021-05-09 17:59 | P.PN ---
Subjective Progress Note Date: 05/09/21 Patient seen at bedside and the per the patient's nurse she's doing drastically better. In the morning he was on Precedex which was a titrated down and that then was eventually stopped at 2 PM today. Per the patient nurse today the patient was agitated and the was hostile to nursing staff. Currently he is off of the BiPAP machine that. Patient is accompanied with his mother was at bedside and the patient stated that the he does have history of sleep apnea but does not wear his CPAP and is non-compliant using it. He denies of history of seizures, stroke or TIAs. Objective - Vital Signs Vital signs: Vital Signs Temp 98.2 F 05/09/21 16:00 Pulse 111 H 05/09/21 16:18 Resp 13 05/09/21 16:00 BP 127/68 05/09/21 16:00 Pulse Ox 94 L 05/09/21 16:00 Intake & Output 05/08/21 05/09/21 05/09/21 18:59 06:59 18:59 Intake Total 150 726.095 286.195 Output Total 492 659 3519 Balance -650 86.095 -1138.805 Weight 150 kg Intake: IV 260 NS @ 20ml/hr 160 cefTRIAXone 2 gm In 100 Sodium Chloride 0.9% 50 ml @ 100 mls/hr IVPB Q24HR OBI Rx#:[id number] Intake, IV Titration 226.095 26.195 Amount Dexmedetomidine/0.9% NaCl 226.095 26.195 (Pmx) 400 mcg In Empty Bag 1 bag @ 0.2 MCG/KG/HR 7.938 mls/hr IV .[id number] OBI Rx#:[id number] Oral 150 500 Output: Urine 251 946 8360 Other: Voiding Method Indwelling Catheter Indwelling Catheter - Exam GENERAL: The patient is morbid obese gentleman sitting in a recliner chair and is not in acute distress. NEUROLOGICAL: Higher mental function: The patient is awake, alert, oriented to self, place and time. Patient is following commands. No aphasia and no neglect. Cranial nerves: The pupils are round, equal and reactive to light. Visual gimenez are full to confrontation throughout. Extraocular movement is intact no nystagmus is noted. Facial sensation is normal to touch throughout. The facial strength is normal throughout. Tongue is midline and moved [id number] without any difficulty. No dysarthria is noted. Shoulder shrug is normal bilaterally. Motor: Gait is The strength is 5 over 5 throughout. Normal tone and bulk. Patient has some tremors and has myoclonic jerks that are brief. Cerebellum: Normal finger to nose bilaterally. Sensation: Sensation is normal to touch throughout. Plantars are mute bilaterally. WORK-UP: TSH: 1.730. HbA1c: 6.1 Urine drug screen is positive for cocaine. Thorne virus PCR: not detected. CT Brain: No acute intracranial hemorrhage or midline shift. There is mild diffuse age-related cerebral atrophy incidentally noted. I personally reviewed the CT of the head and the patient does not have any acute or subacute ischemia. There is no intractable hemorrhage. The patient does have the a moderate amount of bilateral frontal atrophy. The echo was reported as morbid obesity. Technically difficult study with suboptimal view. Ejection fraction 55-60%. Left atrial size is normal. - Labs CBC & Chem 7: 05/09/21 05:39 05/09/21 05:39 Labs: Abnormal Lab Results - Last 24 Hours (Table) 05/08/21 05/08/21 05/08/21 Range/Units 14:40 21:38 21:47 Neutrophils # (1.3-7.7) k/uL Lymphocytes # (1.0-4.8) k/uL ABG pCO2 67 H (35-45) mmHg ABG pO2 56 L* (83-108) mmHg ABG HCO3 38 H (21-25) mmol/L ABG Total CO2 41 H (19-24) mmol/L ABG O2 Saturation 90.7 L (94-97) % Potassium (3.5-5.1) mmol/L Carbon Dioxide (22-30) mmol/L BUN (9-20) mg/dL Glucose (74-99) mg/dL POC Glucose (mg/dL) 184 H (75-99) mg/dL Hemoglobin A1c (4.0-6.0) % Urine Cocaine Screen Positive A (Negative) 05/09/21 05/09/21 05/09/21 Range/Units 05:39 05:39 05:39 Neutrophils # 7.8 H (1.3-7.7) k/uL Lymphocytes # 0.4 L (1.0-4.8) k/uL ABG pCO2 (35-45) mmHg ABG pO2 (83-108) mmHg ABG HCO3 (21-25) mmol/L ABG Total CO2 (19-24) mmol/L ABG O2 Saturation (94-97) % Potassium 5.7 H (3.5-5.1) mmol/L Carbon Dioxide 34 H (22-30) mmol/L BUN 29 H (9-20) mg/dL Glucose 207 H (74-99) mg/dL POC Glucose (mg/dL) (75-99) mg/dL Hemoglobin A1c 6.1 H (4.0-6.0) % Urine Cocaine Screen (Negative) 05/09/21 05/09/21 Range/Units 11:41 16:59 Neutrophils # (1.3-7.7) k/uL Lymphocytes # (1.0-4.8) k/uL ABG pCO2 58 H (35-45) mmHg ABG pO2 53 L* (83-108) mmHg ABG HCO3 39 H (21-25) mmol/L ABG Total CO2 40 H (19-24) mmol/L ABG O2 Saturation 90.0 L (94-97) % Potassium (3.5-5.1) mmol/L Carbon Dioxide (22-30) mmol/L BUN (9-20) mg/dL Glucose (74-99) mg/dL POC Glucose (mg/dL) 144 H (75-99) mg/dL Hemoglobin A1c (4.0-6.0) % Urine Cocaine Screen (Negative) Assessment and Plan Assessment: Questionable reported syncopal episode. Does not appear seizure (there is no reactive on blood test). Possible due to his hypoxic/hypercapnic Altered mental status likely due to hypoxic/hypercapnic encephalopathy and toxic encephalopathy (positive cocaine use)--improved CO2 narcosis Atrial flutter with RVR Acute on chronic hypoxic/hypercapnic respiratory failure on BiPAP Positive cocaine (on urine drug screen) Obstructive sleep apnea and patient is not compliant with CPAP at home. COPD Nicotine dependence Morbid obesity Plan: Pending EEG (unable to perform during the day since was on BiPAP machine) and will attempt tomorrow. Continue Cardiac monitoring Pulmonary team is on board Cardiology team is on board He was notified to uses CPAP at home to prevent the cardiovascular risk factor such as stroke, migraine and heart problems. We'll defer the rest of the medical management to the primary/ICU team The plan is discussed with the patient, his mother who is at bedside and his nurse. Chaz Maciel M.D. Neuro-hospitalist Time with Patient: Less than 30
[2021-05-09] MEDS ORDERED: DILTIAZEM DRIP BOLUS FROM BAG 1 MG SOLN IV ONE (22:09)
[2021-05-09] MEDS: DILTIAZEM 125 MG in SODIUM CHLORIDE 0.9% 100 ML IV SCH (22:30)
[2021-05-10] MEDS: methylPREDNISolone SOD SUCCI 40 MG/ML 1 ML VIAL IV SCH ×2 (00:10→08:22)
[2021-05-10 06:13] LABS: African American GFR (CKD) >90 (>60 ml/min/1.73 sqM); Anion Gap 5 mmol/L; Blood Urea Nitrogen 42 mg/dL (9-20); Calcium 8.4 mg/dL (8.4-10.2); Carbon Dioxide 35 mmol/L (22-30); Chloride 94 mmol/L (98-107); Glucose 135 mg/dL (74-99); Non-African American GFR(CKD) 80 (>60 ml/min/1.73 sqM); Potassium 4.9 mmol/L (3.5-5.1); Sodium 134 mmol/L (137-145)
[2021-05-10 06:31] LABS: Basophils % (A) 0 %; Eosinophils % (A) 0 %; HCT 47.6 % (39.0-53.0); HGB 15.4 gm/dL (13.0-17.5); Lymphocytes # (A) 0.5 k/uL (1.0-4.8); Lymphocytes % (A) 3 %; MCHC 32.4 g/dL (31.0-37.0); MCV 89.6 fL (80.0-100.0); Mean Platelet Volume 8.3; Monocytes # (A) 0.5 k/uL (0-1.0); Monocytes % (A) 3 %; Neutrophils # (A) 13.3 k/uL (1.3-7.7); Neutrophils % (A) 92 %; Platelet Count 192 k/uL (150-450); RBC 5.32 m/uL (4.30-5.90); RDW 14.7 % (11.5-15.5); WBC 14.4 k/uL (3.8-10.6)
[2021-05-10] MEDS: ENOXAPARIN 40 MG/0.4 ML SYRINGE SQ SCH (08:22)
[2021-05-10] MEDS: ASPIRIN 81 MG PO SCH (08:23)
[2021-05-10] MEDS: METOPROLOL TARTRATE 25 MG TAB PO SCH (08:23)
[2021-05-10] MEDS: NICOTINE 21MG/24HR PATCH TRANSDERM SCH (08:23)
[2021-05-10] MEDS: buPROPion XL 150 MG TAB.ER.24H PO SCH (08:23)
[2021-05-10] MEDS: FUROSEMIDE 10 MG/ML 4 ML VIAL IV SCH ×2 (08:23→20:19)
--- NOTE | 2021-05-10 08:23 | XR ---
EXAMINATION TYPE: XR chest 1V portable DATE OF EXAM: 05/10/2021 COMPARISON: Chest x-ray 05/08/2021 HISTORY: Dyspnea TECHNIQUE: Single frontal view of the chest is obtained. FINDINGS: The heart remains enlarged. There is some blunting the costophrenic angles. No evident pne umothorax. Lungs show similar appearance. IMPRESSION: Cardiomegaly. There may be small basilar effusions and associated atelectasis.
[2021-05-10] MEDS: IPRATROPIUM-ALBUTEROL 3 ML NEB INHALATION SCH ×4 (08:32→19:18)
[2021-05-10] MEDS: FORMOTEROL FUMARATE 20 MCG/2 ML NEBU INHALATION SCH (08:32)
[2021-05-10] MEDS: BUDESONIDE 1 MG/2 ML NEBU INHALATION SCH (08:32)
--- NOTE | 2021-05-10 10:33 | P.PN ---
Subjective Progress Note Date: 05/10/21 On today's evaluation of 05/10/2021, the patient is wide awake and alert and communicating and following questions and answering questions appropriately. Overnight, he was placed on BiPAP at a pressure of 16/8 with an FiO2 of 40%. Currently is on oxygen at 6 L. His current pulse ox is above 90%. He is still feeling that the lungs are tight. He was diuresed with IV Lasix 40 mg every 12 hours and he is in a negative balance of 2 L over the past 24 hours. He is still diuresing well. Meanwhile, his still running runs of atrial fibrillation. Currently is on Cardizem drip running at 10 mg an hour. He has not been started on anticoagulation and I'm recommended starting this patient on Eliquis 5 mg by mouth twice a day regarding long-term and to coagulation for his underlying atrial fibrillation. Echocardiogram was noted. No significant LV dysfunction. Neurology evaluated the patient regarding his outs of syncope. Repeat chest x-ray shows cardiomegaly. No significant abnormalities noted at this point in time. No angina. No palpitation. No chest pain. No focal neurological deficit. He reported the patient is still on DuoNeb nebulized treatments around the clock and the patient is also on IV Solu-Medrol. Objective - Vital Signs Vital signs: Vital Signs Temp 98 F 05/10/21 04:00 Pulse 140 H 05/10/21 09:00 Resp 15 05/10/21 09:00 BP 155/95 05/10/21 09:00 Pulse Ox 90 L 05/10/21 09:00 Intake & Output 05/09/21 05/10/21 05/10/21 18:59 06:59 18:59 Intake Total 346.195 840 730 Output Total 1725 1500 1300 Balance -1378.805 -660 -570 Weight 151 kg Intake: IV 320 90 130 NS @ 10ml/hr 220 90 30 cefTRIAXone 2 gm In 100 100 Sodium Chloride 0.9% 50 ml @ 100 mls/hr IVPB Q24HR [facility]BI Rx#:[id number] Intake, IV Titration 26.195 Amount Dexmedetomidine/0.9% NaCl 26.195 (Pmx) 400 mcg In Empty Bag 1 bag @ 0.2 MCG/KG/HR 7.938 mls/hr IV .[id number] OBI Rx#:[id number] Oral 750 600 Output: Urine 1725 1500 1300 Other: Voiding Method Indwelling Catheter Urinal Urinal - Exam Morbidly obese, 56-year-old male patient, currently the patient on 6 L of oxygen by nasal cannula. Head exam was generally normal. There was no scleral icterus or corneal arcus. Mucous membranes were moist. Neck was supple and without jugular venous distension, thyromegaly, or carotid bruits. Carotids were easily palpable bilaterally. There was no adenopathy. The patient has significant crowding of the posterior pharynx. He has a Mallampati class IV. He has cyanosis of the mucosal membranes. Lungs sounds are diminished bilaterally and there crackles at the lung bases. Few scattered expiratory wheezes. Cardiac exam revealed the PMI to be normally situated and sized. The rhythm is irregular consistent with atrial fibrillation and no extrasystoles were noted during several minutes of auscultation. The first and second heart sounds were normal and physiologic splitting of the second heart sound was noted. There were no murmurs, rubs, clicks, or gallops. Abdomen abdomenAbdominal exam revealed normal bowel sounds. The abdomen was soft, non-tender, and without masses, organomegaly, or appreciable enlargement of the abdominal aorta. And the patient has a tiny umbilical hernia Extremities show trace edema and there is no cyanosis or clubbing. Neurologically the patient is awake and alert and there is no focal neurological deficits. - Labs CBC & Chem 7: 05/10/21 05:09 05/10/21 05:09 Labs: Abnormal Lab Results - Last 24 Hours (Table) 05/09/21 05/09/21 05/09/21 Range/Units 05:39 11:41 16:59 WBC (3.8-10.6) k/uL Neutrophils # (1.3-7.7) k/uL Lymphocytes # (1.0-4.8) k/uL ABG pCO2 58 H (35-45) mmHg ABG pO2 53 L* (83-108) mmHg ABG HCO3 39 H (21-25) mmol/L ABG Total CO2 40 H (19-24) mmol/L ABG O2 Saturation 90.0 L (94-97) % Sodium (137-145) mmol/L Chloride (98-107) mmol/L Carbon Dioxide (22-30) mmol/L BUN (9-20) mg/dL Glucose (74-99) mg/dL POC Glucose (mg/dL) 144 H (75-99) mg/dL Hemoglobin A1c 6.1 H (4.0-6.0) % 05/10/21 05/10/21 Range/Units 05:09 05:09 WBC 14.4 H (3.8-10.6) k/uL Neutrophils # 13.3 H (1.3-7.7) k/uL Lymphocytes # 0.5 L (1.0-4.8) k/uL ABG pCO2 (35-45) mmHg ABG pO2 (83-108) mmHg ABG HCO3 (21-25) mmol/L ABG Total CO2 (19-24) mmol/L ABG O2 Saturation (94-97) % Sodium 134 L (137-145) mmol/L Chloride 94 L (98-107) mmol/L Carbon Dioxide 35 H (22-30) mmol/L BUN 42 H (9-20) mg/dL Glucose 135 H (74-99) mg/dL POC Glucose (mg/dL) (75-99) mg/dL Hemoglobin A1c (4.0-6.0) % Assessment and Plan Plan: 1 Acute on chronic hypoxic/hypercapnic respiratory failure , multifactorial as the patient went into A. fib RVR with a component of CHF in addition to underlying obstructive sleep apnea which put the patient into hypercapnic respiratory failure and hypoxic respiratory failure. Most recent blood gas s hows improvement and acid base status. Acute respiratory acidosis recovered and the patient is currently on 6 L of oxygen by nasal cannula, responding to diuresis. 2 acute BiPAP dependent respiratory failure, recovered currently on 6 L 3 CO2 narcosis with altered mentation, improved 4 Obstructive sleep apnea, and the patient has been on CPAP pressure of 10 cm of water on outpatient basis. He does have periodic limb movement activity 5 obesity with BMI 47.5 6 COPD 7 A. fib/flutter with rapid ventricular respons, rate is controlled and Cardizem drip is running at 10 mg an hour. 8 history of paroxysmal atrial fibrillation 9 history of bronchial asthma 10 history of osteoarthritis 11 history of umbilical hernia 12 positive cocaine use Plan Continue IV Lasix Wean down FiO2 to tolerate a saturation above 90% Blood gas showed improvement and acid base status Discontinue Precedex drip Echocardiogram was noted Increase the metoprolol to 50 mg twice a day and wean off Cardizem drip and discontinue Start the patient on Eliquis 5 mg by mouth twice a day Stop the IV Solu Medrol start the patient prednisone burst taper We'll chest out of the intensive care unit at a later stage. Overnight, continue using the BiPAP.
--- NOTE | 2021-05-10 11:36 | P.PN ---
Subjective Progress Note Date: 05/10/21 The patient is seen at bedside and he continues to be doing well. No further episodes of ?syncope. He did acknowledge that he uses cocaine. Objective - Vital Signs Vital signs: Vital Signs Temp 98 F 05/10/21 04:00 Pulse 140 H 05/10/21 09:00 Resp 15 05/10/21 09:00 BP 155/95 05/10/21 09:00 Pulse Ox 90 L 05/10/21 09:00 Intake & Output 05/09/21 05/10/21 05/10/21 18:59 06:59 18:59 Intake Total 346.195 840 730 Output Total 1725 1500 1300 Balance -1378.805 -660 -570 Weight 151 kg Intake: IV 320 90 130 NS @ 10ml/hr 220 90 30 cefTRIAXone 2 gm In 100 100 Sodium Chloride 0.9% 50 ml @ 100 mls/hr IVPB Q24HR [facility]BI Rx#:[id number] Intake, IV Titration 26.195 Amount Dexmedetomidine/0.9% NaCl 26.195 (Pmx) 400 mcg In Empty Bag 1 bag @ 0.2 MCG/KG/HR 7.938 mls/hr IV .[id number] [facility]BI Rx#:[id number] Oral 750 600 Output: Urine 1725 1500 1300 Other: Voiding Method Indwelling Catheter Urinal Urinal - Exam GENERAL: The patient is morbid obese gentleman sitting in a recliner chair and is not in acute distress. NEUROLOGICAL: Higher mental function: The patient is awake, alert, oriented to self, place and time. Patient is following commands. No aphasia and no neglect. Cranial nerves: The pupils are round, equal and reactive to light. Visual gimenez are full to confrontation throughout. Extraocular movement is intact no nystagmus is noted. Facial sensation is normal to touch throughout. The facial strength is normal throughout. Tongue is midline and moved [id number] without any difficulty. No dysarthria is noted. Shoulder shrug is normal bilaterally. Motor: Gait is The strength is 5 over 5 throughout. Normal tone and bulk. Cerebellum: Normal finger to nose bilaterally. Sensation: Sensation is normal to touch throughout. Plantars are mute bilaterally. WORK-UP: TSH: 1.730. HbA1c: 6.1 Urine drug screen is positive for cocaine. Thorne virus PCR: not detected. CT Brain: No acute intracranial hemorrhage or midline shift. There is mild diffuse age-related cerebral atrophy incidentally noted. I personally reviewed the CT of the head and the patient does not have any acute or subacute ischemia. There is no intractable hemorrhage. The patient does have the a moderate amount of bilateral frontal atrophy. The echo was reported as morbid obesity. Technically difficult study with suboptimal view. Ejection fraction 55-60%. Left atrial size is normal. - Labs CBC & Chem 7: 05/10/21 05:09 05/10/21 05:09 Labs: Abnormal Lab Results - Last 24 Hours (Table) 05/09/21 05/09/21 05/09/21 Range/Units 05:39 11:41 16:59 WBC (3.8-10.6) k/uL Neutrophils # (1.3-7.7) k/uL Lymphocytes # (1.0-4.8) k/uL ABG pCO2 58 H (35-45) mmHg ABG pO2 53 L* (83-108) mmHg ABG HCO3 39 H (21-25) mmol/L ABG Total CO2 40 H (19-24) mmol/L ABG O2 Saturation 90.0 L (94-97) % Sodium (137-145) mmol/L Chloride (98-107) mmol/L Carbon Dioxide (22-30) mmol/L BUN (9-20) mg/dL Glucose (74-99) mg/dL POC Glucose (mg/dL) 144 H (75-99) mg/dL Hemoglobin A1c 6.1 H (4.0-6.0) % 05/10/21 05/10/21 Range/Units 05:09 05:09 WBC 14.4 H (3.8-10.6) k/uL Neutrophils # 13.3 H (1.3-7.7) k/uL Lymphocytes # 0.5 L (1.0-4.8) k/uL ABG pCO2 (35-45) mmHg ABG pO2 (83-108) mmHg ABG HCO3 (21-25) mmol/L ABG Total CO2 (19-24) mmol/L ABG O2 Saturation (94-97) % Sodium 134 L (137-145) mmol/L Chloride 94 L (98-107) mmol/L Carbon Dioxide 35 H (22-30) mmol/L BUN 42 H (9-20) mg/dL Glucose 135 H (74-99) mg/dL POC Glucose (mg/dL) (75-99) mg/dL Hemoglobin A1c (4.0-6.0) % Assessment and Plan Assessment: Questionable reported syncopal episode. Does not appear seizure (there is no reactive on blood test). Possible due to his hypoxic/hypercapnic Altered mental status likely due to hypoxic/hypercapnic encephalopathy and toxic encephalopathy (positive cocaine use)--improved CO2 narcosis Atrial flutter with RVR Acute on chronic hypoxic/hypercapnic respiratory failure on BiPAP Positive cocaine (on urine drug screen) Obstructive sleep apnea and patient is not compliant with CPAP at home. COPD Nicotine dependence Morbid obesity Plan: Pending EEG. Continue Cardiac monitoring Pulmonary team is on board Cardiology team is on board He was notified to uses CPAP at home to prevent the cardiovascular risk factor such as stroke, migraine and heart problems. Patient was counseled on cessation of illicit drug use. We'll defer the rest of the medical management to the primary/ICU team The plan is discussed with the patient. UPDATE: Routine EEG: Abnormal. The background slowing is suggestive of mild encephalopathy. There are no focal slowing, epileptiform discharges or seizure on the EEG. Neurology will sign off. Please reconsult if needed. Chaz Maciel M.D. Neuro-hospitalist Time with Patient: Less than 30
--- NOTE | 2021-05-10 12:39 | P.PN ---
Progress Note - Text Progress Note Date: 05/10/21 Chief Complaint: Shortness of breath This is a 56-year-old patient who follows that Anu Mirza. Patient presented to the ER yesterday evening becoming more short of breath and having multiple syncopal episodes. I told the ER physician that he been having falls last couple of weeks and simply passes out. He's had a bruising over his anterior chest from these falls. Denies any fever and chills. He short of breath and significant exertional dyspnea. Also some palpitations. Patient is a smoker. When I came to see the patient patient somewhat lethargic. Barely arousable. Breathing a bit heavy but not in distress. Tachycardic. I ordered blood gases. Admitted with acute hypoxic and hypercapnic respiratory failure from COPD exacerbation, metabolic encephalopathy, COPD exacerbation, mild congestive heart exacerbation, pneumonia, troponin positive from hemodynamic mismatch. Patient is put on a BiPAP. Moved to the ICU. DuoNeb. IV Solu-Medrol. IV ceftriaxone. 05/09/2021: ICU: On BiPAP the setting of 16/8, 40%, rate of 12. Telemetry shows sinus rhythm. Patient is on Precedex 0.2. For agitation. Lethargic. But arousable. 05/10/2021: ICU: Patient is off the BiPAP. On 6 L nasal cannula. Awake. A bit tired. Did eat his breakfast. In atrial fibrillation. On IV Cardizem. Patient does smoke half a pack a day. She has not had alcohol since 2008. Was not using his CPAP at home. Review of systems: Was done for constitutional, cardiovascular, GI, pulmonary. relevant finding as above Active Medications Hydrocodone Bitart/Acetaminophen (Hydrocodone/Apap 5-325mg 1 Each Tab) 1 each PO Q6HR PRN PRN Reason: Pain Last Admin: 05/08/21 01:00 Dose: 1 each Documented by: Albuterol Sulfate (Albuterol Nebulized 2.5 Mg/3 Ml) 2.5 mg INHALATION RT-Q6H PRN PRN Reason: Shortness Of Breath Albuterol/Ipratropium (Ipratropium-Albuterol 3 Ml Neb) 3 ml INHALATION RT-QID OBI Last Admin: 05/10/21 11:38 Dose: 3 ml Documented by: Apixaban (Apixaban 5 Mg Tab) 5 mg PO BID [facility]; Protocol Aspirin (Aspirin 81 Mg) 81 mg PO DAILY [facility] Last Admin: 05/10/21 08:23 Dose: 81 mg Documented by: Budesonide/Formoterol Fumarate (Symbicort 160-4.5 Mcg Inhaler) 2 puff INHALATION RT-BID [facility] Bupropion HCl (Bupropion Xl 150 Mg Tab.Er.24h) 150 mg PO DAILY [facility] Last Admin: 05/10/21 08:23 Dose: 150 mg Documented by: Furosemide (Furosemide 10 Mg/Ml 4 Ml Vial) 40 mg IV Q12HR [facility] Last Admin: 05/10/21 08:23 Dose: 40 mg Documented by: Ceftriaxone Sodium 2 gm/ (Sodium Chloride) 50 mls @ 100 mls/hr IVPB Q24HR [facility] Last Admin: 05/10/21 08:23 Dose: 100 mls/hr Documented by: Diltiazem HCl 125 mg/ Sodium (Chloride) 125 mls @ 10 mls/hr IV .[id number] [facility] Last Admin: 05/09/21 22:30 Dose: 10 mg/hr, 10 mls/hr Documented by: Metoprolol Tartrate (Metoprolol Tartrate 50 Mg Tab) 50 mg PO BID [facility] Nicotine (Nicotine 21mg/24hr Patch) 1 patch TRANSDERM DAILY [facility] Last Admin: 05/10/21 08:23 Dose: 1 patch Documented by: Nitroglycerin (Nitroglycerin Sl Tabs 0.4 Mg Tab) 0.4 mg SUBLINGUAL Q5M PRN PRN Reason: Chest Pain Prednisone (Prednisone 20 Mg Tab) 40 mg PO DAILY [facility] Past medical history to include: Atrial fibrillation, COPD, sleep apnea, depression smoker Social history: Smoker Family history: Patient lethargic. Unable to obtain Physical examination: VITAL SIGNS: Heart rate 110, 15, 1 55 x 95, 90% on 6 L GENERAL: Reclining in bed, awake, tired EYES: Pupils equal. Conjunctiva normal. HEENT: External appearance of nose and ears normal, oral cavity: Unable to assess. NECK: JVD not raised; masses not palpable. HEART: Irregular heart sounds; mild edema LUNGS: Respiratory rate increased; decreased breath sounds. ABDOMEN: Soft, distended nontender, liver spleen not palpable, no masses palpable. CHEST wall: Bruising on the left anterior chest wall PSYCH: Answering questions appropriately INVESTIGATIONS, reviewed in the clinical context: May 10: WBC 14.4 hemoglobin 13.4 potassium 4.9 creatinine 1.03 May 09: White count 8.5 hemoglobin 16.2 platelets 188 ABG: PH 7.43 pCO2 58, pO2 53. Potassium 5.7 BUN 29 creatinine 0.96. HbA1c 6.1 CT brain [without contrast on May 08 dose bracket: Mild diffuse age-related cerebral atrophy ABG: PH 7.16 pCO2 109 pO2 65 on 4 L White count 8.4 hemoglobin 15.9 platelets 186 potassium 4.6 BUN 28 creatinine 0.4 Troponin I 0.049, 0.045, 0.043 ProBNP 1390 LDL 92.3 TSH 1.7 UA negative Coronavirus [PCR]: Not detected Chest x-ray film personally reviewed by me-cardiomegaly, some infiltrates Chest CTA: Moderate cardiomegaly. Bilateral basilar pulmonary interstitial infiltrates. No PE. EKG tracing personally reviewed by me-sinus tachycardia. Some T wave changes. 2-D echocardiogram: Suboptimal views. EF 55-60%. Right ventricle moderately enlarged. Assessment and plan: -Acute hypoxic and hypercapnic respiratory failure from COPD exacerbation and a smoker: Slow to respond BiPAP. Discontinued. Nasal cannula 6 L -Acute hypoxic hypercapnic metabolic encephalopathy: Improving Follow clinically -Acute COPD exacerbation in a current smoker: Slow to respond DuoNeb 4 times a day, Pulmicort 1 mg twice a day, Perforomist 20 g twice a day. IV Solu-Medrol discontinued. Oral prednisone started -Chronic nicotine dependence, cigarette smoker Nicotine patch 21 -Depression not otherwise specified Wellbutrin 150 mg daily -Mild acute congestive heart failure exacerbation from diastolic dysfunction EF 55-60% IV Lasix 40 mg every 12. -Troponinemia, from hemodynamic mismatch. Follow-up with cardiology Change IV Solu-Medrol to oral prednisone. Patient on nasal cannula 6 L. Up in chair as tolerated. Increase activity. Discussed with patient. Incentive spirometry.
[2021-05-10] MEDS: APIXABAN 5 MG TAB PO SCH ×2 (12:55→20:19)
[2021-05-10] MEDS: DILTIAZEM 125 MG in SODIUM CHLORIDE 0.9% 100 ML IV SCH ×2 (12:55→21:24)
--- NOTE | 2021-05-10 13:31 | EEG ---
ELECTROENCEPHALOGRAM REPORT DATE OF SERVICE: 05/10/2021 CLINICAL HISTORY: This is a 56-year-old gentleman with reported episode of possible syncope. The video EEG is obtained to evaluate for seizure epileptiform activity. RELEVANT MEDICATION: The patient is not on any antiepileptic drugs. EEG TYPE: A routine 21-channel EEG is performed with video using the 10/20 electrode placement system. DESCRIPTION: Wakefulness is only obtained. During awake state, the background consists of 7 to 7.5 hertz activity. There is no physiological stage II sleep architecture. There is no focal slowing. Interictal and ictal is none. ACTIVATION PROCEDURE: Photic stimulation did not evoke a posterior driving response. There is no abnormality during the photic stimulation. Hyperventilation is not performed. CLINICAL INTERPRETATION: This is an abnormal routine EEG. The background slowing is suggestive of mild encephalopathy. There are no focal slowing, epileptiform discharges or seizure on the EEG. Clinical correlation is recommended. IRAIDA / RHETT: [id number] / [id number]
--- NOTE | 2021-05-10 16:27 | P.PN ---
Subjective Progress Note Date: 05/10/21 This 56-year-old gentleman with history of obesity and COPD and respiratory failure is admitted to the hospital with near syncopal episodes and dizziness. Patient has problems with agitation and required sedation. Is barely arousable. His maintaining sinus rhythm. Patient was in atrial flutter on admission but currently maintaining sinus rhythm. He is not on anticoagulation because of history of recurrent falls. His echocardiogram showed normal LV function. He is being followed by pulmonology. Continue current medical therapy. From a cardiac standpoint, will stay with current therapy. May not be an ideal candidate for anticoagulation. 05/10/2011: This patient is admitted to the hospital with COPD exacerbation and altered mental status. He was also found to have paroxysmal and persistent atrial fibrillation. He was on IV Cardizem which were changed to by mouth Cardizem. Floor Layer also start him on anticoagulation therapy. Patient is young without any history of hypertension or diabetes and known coronary artery disease. Patient is obese and may have sleep apnea. Continue current medical therapy. Patient is being transferred to telemetry unit Objective - Vital Signs Vital signs: Vital Signs Temp 99.5 F 05/10/21 16:00 Pulse 100 05/10/21 16:10 Resp 18 05/10/21 16:00 BP 163/79 05/10/21 16:00 Pulse Ox 95 05/10/21 16:00 Intake & Output 05/09/21 05/10/21 05/10/21 18:59 06:59 18:59 Intake Total 346.449 326 1506 Output Total 1725 1500 2100 Balance -1378.805 -660 -865 Weight 151 kg Intake: IV 320 90 150 NS @ 10ml/hr 220 90 50 cefTRIAXone 2 gm In 100 100 Sodium Chloride 0.9% 50 ml @ 100 mls/hr IVPB Q24HR [facility] Rx#:[id number] Intake, IV Titration 26.195 125 Amount Dexmedetomidine/0.9% NaCl 26.195 (Pmx) 400 mcg In Empty Bag 1 bag @ 0.2 MCG/KG/HR 7.938 mls/hr IV .[id number] [facility] Rx#:[id number] Diltiazem 125 mg In 125 Sodium Chloride 0.9% 100 ml @ 10 MG/HR 10 mls/hr IV .[id number] [facility] Rx#: [id number] Oral 750 960 Output: Urine 1725 1500 2100 Other: Voiding Method Indwelling Catheter Urinal Urinal - Exam GENERAL EXAM: Patient is sleepy and barely arousable. Patient is also deaf HEENT: Normocephalic. Normal reaction of pupils, equal size, normal range of extraocular motion. No erythema or exudates in the throat. NECK: No masses, no nuchal rigidity. CHEST: No chest wall deformity. LUNGS: Diminished air exchange HEART: S1 and S2 normal with no audible mumurs or gallops. Regular rhythm, femorals equal on both sides.. ABDOMEN: No hepatosplenomegaly, normal bowel sounds, no guarding or rigidity. SKIN: No rashes CENTRAL NERVOUS SYSTEM: Deferred to neurology EXTREMITIES: No cyanosis, clubbing or edema. - Labs CBC & Chem 7: 05/10/21 05:09 05/10/21 05:09 Labs: Abnormal Lab Results - Last 24 Hours (Table) 05/09/21 05/10/21 05/10/21 Range/Units 16:59 05:09 05:09 WBC 14.4 H (3.8-10.6) k/uL Neutrophils # 13.3 H (1.3-7.7) k/uL Lymphocytes # 0.5 L (1.0-4.8) k/uL Sodium 134 L (137-145) mmol/L Chloride 94 L (98-107) mmol/L Carbon Dioxide 35 H (22-30) mmol/L BUN 42 H (9-20) mg/dL Glucose 135 H (74-99) mg/dL POC Glucose (mg/dL) 144 H (75-99) mg/dL Assessment and Plan (1) Recurrent syncope Current Visit: Yes Status: Acute Code(s): R55 - SYNCOPE AND COLLAPSE SNOMED Code(s): 649365349 (2) Respiratory failure Current Visit: Yes Status: Acute Code(s): J96.90 - RESPIRATORY FAILURE, UNSP, UNSP W HYPOXIA OR HYPERCAPNIA SNOMED Code(s): 945459601 (3) Paroxysmal atrial flutter Current Visit: Yes Status: Acute Code(s): I48.92 - UNSPECIFIED ATRIAL FLUTTER SNOMED Code(s): 945294790 Plan: From cardiac standpoint, continue current medical therapy. We'll follow with his own transcriber upon discharge
[2021-05-10] MEDS: SYMBICORT 160-4.5 MCG INHALER INHALATION SCH (19:18)
[2021-05-10] MEDS: METOPROLOL TARTRATE 50 MG TAB PO SCH (20:19)
[2021-05-11] MEDS: IPRATROPIUM-ALBUTEROL 3 ML NEB INHALATION SCH ×4 (07:11→20:46)
[2021-05-11] MEDS: SYMBICORT 160-4.5 MCG INHALER INHALATION SCH ×2 (07:11→20:46)
[2021-05-11 09:27] LABS: African American GFR (CKD) >90 (>60 ml/min/1.73 sqM); Anion Gap 6 mmol/L; Blood Urea Nitrogen 39 mg/dL (9-20); Calcium 8.5 mg/dL (8.4-10.2); Carbon Dioxide 37 mmol/L (22-30); Chloride 93 mmol/L (98-107); Glucose 113 mg/dL (74-99); Non-African American GFR(CKD) 86 (>60 ml/min/1.73 sqM); Potassium 4.3 mmol/L (3.5-5.1); Sodium 136 mmol/L (137-145)
[2021-05-11] MEDS: METOPROLOL TARTRATE 50 MG TAB PO SCH ×4 (10:20→20:25)
[2021-05-11] MEDS: buPROPion XL 150 MG TAB.ER.24H PO SCH (10:20)
[2021-05-11] MEDS: FUROSEMIDE 10 MG/ML 4 ML VIAL IV SCH ×2 (10:20→20:25)
[2021-05-11] MEDS: APIXABAN 5 MG TAB PO SCH ×2 (10:20→20:25)
[2021-05-11] MEDS: predniSONE 20 MG TAB PO SCH (10:21)
[2021-05-11] MEDS: ASPIRIN 81 MG PO SCH (10:21)
[2021-05-11] MEDS: NICOTINE 21MG/24HR PATCH TRANSDERM SCH (10:21)
[2021-05-11] MEDS: DILTIAZEM 125 MG in SODIUM CHLORIDE 0.9% 100 ML IV SCH (11:13)
[2021-05-11] MEDS ORDERED: LACTULOSE 20 GM/30 ML CUP PO ONE (12:11)
[2021-05-11] MEDS: HYDROcodone/APAP 5-325MG 1 EACH TAB PO PRN (12:15)
--- NOTE | 2021-05-11 13:15 | P.PN ---
Subjective Progress Note Date: 05/11/21 HISTORY OF PRESENT ILLNESS: This is a 56 year old male with a past medical history significant for asthma, COPD, nicotine dependence, and questionable atrial fibrillation. Patient states he was following with a barrel bander at [facility]. We have been asked to see the patient in consultation for syncope. Patient examined at the bedside in the ER. Patient is a poor historian and unable to provide accurate description of the events that brought him to the hospital. He states he came to the hospital because he "kept falling asleep standing up". It is unclear if the patient had any actual syncope episodes at home. Denies CP or SOB. Patient was found to be in atrial flutter with RVR in the ER. He is currently in sinus mechanism at the time of examination. Echocardiogram completed revealed ejection fraction 55-60%. mild mitral regurgitation. Mild tricuspid regurgitation. Small generalized pericardial effusion. CT completed which was negative for PE. 05/10/2011: This patient is admitted to the hospital with COPD exacerbation and altered mental status. He was also found to have paroxysmal and persistent atrial fibrillation. He was on IV Cardizem which were changed to by mouth Cardizem. Spun Paste Machine Operator also start him on anticoagulation therapy. Patient is young without any history of hypertension or diabetes and known coronary artery disease. Patient is obese and may have sleep apnea. Continue current medical therapy. Patient is being transferred to telemetry unit 05/11/2021 Patient examined this morning at the bedside. He denies chest pain or pressure. Denies SOB. Telemetry reveals atrial fibrillation with a heart rate in the 120s. He is currently on a Cardizem drip. PHYSICAL EXAM: VITAL SIGNS: Reviewed. GENERAL: Well-developed in no acute distress. HEENT: Head is normocephalic. Pupils are equal, round. Sclerae anicteric. Mucous membranes of the mouth are moist. Neck supple. No JVD or thyromegaly LUNGS: Respirations even and unlabored. Lungs diminished to auscultation tiera aterally. HEART: Tachycardic. Irregular rate and rhythm. S1 and S2 heard. ABDOMEN: Soft. Nondistended. Nontender. EXTREMITIES: Normal range of motion. No clubbing or cyanosis. Peripheral pulses intact. Trace lower extremity edema NEUROLOGIC: Awake and alert. Oriented x 3. ASSESSMENT: Acute on chronic hypoxic and hypercapnic respiratory failure Typical atrial flutter with RVR Paroxysmal atrial fibrillation with RVR Questionable syncope COPD Nicotine dependence Cocaine use Objective sleep apnea PLAN: Patient has been started on anticoagulation per pulmonary service IV lasix per pulmonary Increase metoprolol 100mg BID Wean off Cardizem drip Further recommendations pending patient course Nurse practitioner note has been reviewed by physician. Signing provider agrees with the documented findings, assessment, and plan of care. Objective - Vital Signs Vital signs: Vital Signs Temp 98.2 F 05/11/21 08:00 Pulse 98 05/11/21 12:00 Resp 18 05/11/21 12:00 BP 136/90 05/11/21 12:00 Pulse Ox 91 L 05/11/21 12:00 Intake & Output 05/10/21 05/11/21 05/11/21 18:59 06:59 18:59 Intake Total 1353 365 Output Total 2100 2775 Balance -747 -2775 365 Weight 149.3 kg Intake: IV 150 NS @ 10ml/hr 50 cefTRIAXone 2 gm In 100 Sodium Chloride 0.9% 50 ml @ 100 mls/hr IVPB Q24HR [facility] Rx#:[id number] Intake, IV Titration 125 125 Amount Diltiazem 125 mg In 125 Sodium Chloride 0.9% 100 ml @ 10 MG/HR 10 mls/hr IV .[id number] [facility] Rx#: [id number] Diltiazem 125 mg In 125 Sodium Chloride 0.9% 100 ml @ 10 MG/HR 10 mls/hr IV .[id number] [facility] Rx#: [id number] Oral 1078 240 Output: Urine 2100 2775 Other: Voiding Method Urinal Urinal # Voids 2 - Labs CBC & Chem 7: 05/10/21 05:09 05/11/21 07:54 Labs: Abnormal Lab Results - Last 24 Hours (Table) 05/11/21 Range/Units 07:54 Sodium 136 L (137-145) mmol/L Chloride 93 L (98-107) mmol/L Carbon Dioxide 37 H (22-30) mmol/L BUN 39 H (9-20) mg/dL Glucose 113 H (74-99) mg/dL
--- NOTE | 2021-05-11 13:26 | P.PN ---
Subjective Progress Note Date: 05/11/21 On today's evaluation of 05/10/2021, the patient is wide awake and alert and communicating and following questions and answering questions appropriately. Overnight, he was placed on BiPAP at a pressure of 16/8 with an FiO2 of 40%. Currently is on oxygen at 6 L. His current pulse ox is above 90%. He is still feeling that the lungs are tight. He was diuresed with IV Lasix 40 mg every 12 hours and he is in a negative balance of 2 L over the past 24 hours. He is still diuresing well. Meanwhile, his still running runs of atrial fibrillation. Currently is on Cardizem drip running at 10 mg an hour. He has not been started on anticoagulation and I'm recommended starting this patient on Eliquis 5 mg by mouth twice a day regarding long-term and to coagulation for his underlying atrial fibrillation. Echocardiogram was noted. No significant LV dysfunction. Neurology evaluated the patient regarding his outs of syncope. Repeat chest x-ray shows cardiomegaly. No significant abnormalities noted at this point in time. No angina. No palpitation. No chest pain. No focal neurological deficit. He reported the patient is still on DuoNeb nebulized treatments around the clock and the patient is also on IV Solu-Medrol. On 05/11/2021 patient seen in follow-up on selective care unit, he is currently on 6 L of oxygen, his pulse ox is 90%, he has been wearing BiPAP support at bedtime, tolerating it well. He remains on Lasix at 40 mg every 12 hours, and - 3.59 fluid balance over the last 24 hours, breathing and lower extremity edema has improved, his last chest x-ray from yesterday showed cardiomegaly, and small basilar effusions or atelectasis. He is in atrial fibrillation, this morning he had episode where his heart rate was around 1:30, she is currently on Cardizem infusion at 10 mg per hour, started on Eliquis 5 mg twice daily for anticoagulation. He is on metoprolol 100 mg twice daily. Cardiology is following. Today's labs reviewed showing sodium of 136, potassium is 4.3, ch loride is 93, CO2 37, B1 is 39, creatinine 0.97, I'll proBNP is 3270, which is an increase since his initial proBNP from 1390. Objective - Vital Signs Vital signs: Vital Signs Temp 98.2 F 05/11/21 08:00 Pulse 98 05/11/21 12:00 Resp 18 05/11/21 12:00 BP 136/90 05/11/21 12:00 Pulse Ox 91 L 05/11/21 12:00 Intake & Output 05/10/21 05/11/21 05/11/21 18:59 06:59 18:59 Intake Total 1353 365 Output Total 2100 2775 Balance -747 -2775 365 Weight 149.3 kg Intake: IV 150 NS @ 10ml/hr 50 cefTRIAXone 2 gm In 100 Sodium Chloride 0.9% 50 ml @ 100 mls/hr IVPB Q24HR [facility] Rx#:[id number] Intake, IV Titration 125 125 Amount Diltiazem 125 mg In 125 Sodium Chloride 0.9% 100 ml @ 10 MG/HR 10 mls/hr IV .[id number] [facility] Rx#: [id number] Diltiazem 125 mg In 125 Sodium Chloride 0.9% 100 ml @ 10 MG/HR 10 mls/hr IV .[id number] [facility] Rx#: [id number] Oral 1078 240 Output: Urine 2100 2775 Other: Voiding Method Urinal Urinal # Voids 2 - Exam GENERAL EXAM: Alert, very pleasant morbidly obese 56 yo white male on 6 l/min with pulse ox 90 comfortable in no apparent distress. HEAD: Normocephalic/atraumatic. EYES: Normal reaction of pupils, equal size. Conjunctiva pink, sclera white. NOSE: Clear with pink turbinates. THROAT: No erythema or exudates. NECK: No masses, no JVD, no thyroid enlargement, no adenopathy. CHEST: No chest wall deformity. Symmetrical expansion. LUNGS: Equal air entry with basilar rales CVS: Irregular rate and rhythm, normal S1 and S2, no gallops, no murmurs, no rubs ABDOMEN: Soft, nontender. No hepatosplenomegaly, normal bowel sounds, no guarding or rigidity. EXTREMITIES: No clubbing, 2 + edema, chronic venous stasis skin changes, no cyanosis, 2+ pulses and upper and lower extremities. MUSCULOSKELETAL: Muscle strength and tone normal. SPINE: No scoliosis or deformity SKIN: No rashes CENTRAL NERVOUS SYSTEM: Alert and oriented -3. No focal deficits, tone is normal in all 4 extremities. PSYCHIATRIC: Alert and oriented -3. Appropriate affect. Intact judgment and insight. - Labs CBC & Chem 7: 05/10/21 05:09 05/11/21 07:54 Labs: Abnormal Lab Results - Last 24 Hours (Table) 05/11/21 Range/Units 07:54 Sodium 136 L (137-145) mmol/L Chloride 93 L (98-107) mmol/L Carbon Dioxide 37 H (22-30) mmol/L BUN 39 H (9-20) mg/dL Glucose 113 H (74-99) mg/dL Assessment and Plan Plan: Assessment: 1 Acute on chronic hypoxic/hypercapnic respiratory failure , multifactorial as the patient went into A. fib RVR with a component of CHF in addition to underlying obstructive sleep apnea which put the patient into hypercapnic respiratory failure and hypoxic respiratory failure. Most recent blood gas shows improvement and acid base status. Acute respiratory acidosis recovered and the patient is currently on 6 L of oxygen by nasal cannula, responding to diuresis. 2 acute BiPAP dependent respiratory failure, recovered currently on 6 L 3 CO2 narcosis with altered mentation, improved 4 Obstructive sleep apnea, and the patient has been on CPAP pressure of 10 cm of water on outpatient basis. He does have periodic limb movement activity 5 obesity with BMI 47.5 6 COPD 7 A. fib/flutter with rapid ventricular respons, rate is controlled and Cardizem drip is running at 10 mg an hour. 8 history of paroxysmal atrial fibrillation 9 history of bronchial asthma 10 history of osteoarthritis 11 history of umbilical hernia 12 positive cocaine use Plan: Current medical treatment Continue diuretics Continue BiPAP support at night Weaning FiO2 to keep O2 sats ration is at 88% or above Continue following electrolytes, and renal profile Accurate intake and output, daily weight Oral prednisone Cardiology Nitin for rate control medications and anticoagulation Neurologically patient has significantly improved since admission, awake and alert, oriented 3 Continue to follow his clinical course I performed a history & physical examination of the patient and discussed their management with my nurse practitioner, Corrie Crawford. I reviewed the nurse practitioner's note and agree with the documented findings and plan of care. Lung sounds are positive for diffuse wheezes throughout the lung gimenez. The findings and the impression was discussed with the patient. I attest to the documentation by the nurse practitioner. Time with Patient: Less than 30
--- NOTE | 2021-05-11 14:02 | P.PN ---
Progress Note - Text Progress Note Date: 05/11/21 Chief Complaint: Shortness of breath This is a 56-year-old patient who follows that Anu Mirza. Patient presented to the ER yesterday evening becoming more short of breath and having multiple syncopal episodes. I told the ER physician that he been having falls last couple of weeks and simply passes out. He's had a bruising over his anterior chest from these falls. Denies any fever and chills. He short of breath and significant exertional dyspnea. Also some palpitations. Patient is a smoker. When I came to see the patient patient somewhat lethargic. Barely arousable. Breathing a bit heavy but not in distress. Tachycardic. I ordered blood gases. Admitted with acute hypoxic and hypercapnic respiratory failure from COPD exacerbation, metabolic encephalopathy, COPD exacerbation, mild congestive heart exacerbation, pneumonia, troponin positive from hemodynamic mismatch. Patient is put on a BiPAP. Moved to the ICU. DuoNeb. IV Solu-Medrol. IV ceftriaxone. 05/09/2021: ICU: On BiPAP the setting of 16/8, 40%, rate of 12. Telemetry shows sinus rhythm. Patient is on Precedex 0.2. For agitation. Lethargic. But arousable. 05/10/2021: ICU: Patient is off the BiPAP. On 6 L nasal cannula. Awake. A bit tired. Did eat his breakfast. In atrial fibrillation. On IV Cardizem. Patient does smoke half a pack a day. She has not had alcohol since 2008. Was not using his CPAP at home. 05/11/2021: ICU: Sitting up in a chair. On 6 L nasal cannula. Has not had a bowel movement. Lactulose ordered. Breathing better. Eating 100%. Remains in A. fib. Heart rate in 1 teens. On Cardizem drip. Lopressor increased to 100 mg twice a day. On IV Lasix. Review of systems: Was done for constitutional, cardiovascular, GI, pulmonary. relevant finding as above Active Medications Hydrocodone Bitart/Acetaminophen (Hydrocodone/Apap 5-325mg 1 Each Tab) 1 each PO Q6HR PRN PRN Reason: Pain Last Admin: 05/11/21 12:15 Dose: 1 each Documented by: Albuterol Sulfate (Albuterol Nebulized 2.5 Mg/3 Ml) 2.5 mg INHALATION RT-Q6H PRN PRN Reason: Shortness Of Breath Albuterol/Ipratropium (Ipratropium-Albuterol 3 Ml Neb) 3 ml INHALATION RT-QID [facility] Last Admin: 05/11/21 10:42 Dose: 3 ml Documented by: Apixaban (Apixaban 5 Mg Tab) 5 mg PO BID [facility]; Protocol Last Admin: 05/11/21 10:20 Dose: 5 mg Documented by: Aspirin (Aspirin 81 Mg) 81 mg PO DAILY [facility] Last Admin: 05/11/21 10:21 Dose: 81 mg Documented by: Budesonide/Formoterol Fumarate (Symbicort 160-4.5 Mcg Inhaler) 2 puff INHALATION RT-BID [facility] Last Admin: 05/11/21 07:11 Dose: 2 puff Documented by: Bupropion HCl (Bupropion Xl 150 Mg Tab.Er.24h) 150 mg PO DAILY [facility] Last Admin: 05/11/21 10:20 Dose: 150 mg Documented by: Furosemide (Furosemide 10 Mg/Ml 4 Ml Vial) 40 mg IV Q12HR [facility] Last Admin: 05/11/21 10:20 Dose: 40 mg Documented by: Ceftriaxone Sodium 2 gm/ (Sodium Chloride) 50 mls @ 100 mls/hr IVPB Q24HR [facility] Last Admin: 05/11/21 10:21 Dose: 100 mls/hr Documented by: Diltiazem HCl 125 mg/ Sodium (Chloride) 125 mls @ 10 mls/hr IV .[id number] [facility] Last Admin: 05/11/21 11:13 Dose: 10 mg/hr, 10 mls/hr Documented by: Metoprolol Tartrate (Metoprolol Tartrate 50 Mg Tab) 100 mg PO BID [facility] Last Admin: 05/11/21 12:09 Dose: 100 mg Documented by: Nicotine (Nicotine 21mg/24hr Patch) 1 patch TRANSDERM DAILY [facility] Last Admin: 05/11/21 10:21 Dose: 1 patch Documented by: Nitroglycerin (Nitroglycerin Sl Tabs 0.4 Mg Tab) 0.4 mg SUBLINGUAL Q5M PRN PRN Reason: Chest Pain Prednisone (Prednisone 20 Mg Tab) 40 mg PO DAILY [facility] Last Admin: 05/11/21 10:21 Dose: 40 mg Documented by: Past medical history to include: Atrial fibrillation, COPD, sleep apnea, depression smoker Social history: Smoker Family history: Patient lethargic. Unable to obtain Physical examination: VITAL SIGNS: Afebrile, 103, 18, 136/90, 91% on 6 L GENERAL: Up in a chair, awake, EYES: Pupils equal. Conjunctiva normal. HEENT: External appearance of nose and ears normal, oral cavity: Unable to assess. NECK: JVD not raised; masses not palpable. HEART: Irregular heart sounds; mild edema LUNGS: Respiratory rate increased; decreased breath sounds. ABDOMEN: Soft, distended nontender, liver spleen not palpable, no masses palpable. CHEST wall: Bruising on the left anterior chest wall PSYCH: Answering questions appropriately INVESTIGATIONS, reviewed in the clinical context: May 11: Sodium 136 potassium 4.3 BUN 39 creatinine 0.97 proBNP 3270 May 10: WBC 14.4 hemoglobin 13.4 potassium 4.9 creatinine 1.03 May 09: White count 8.5 hemoglobin 16.2 platelets 188 ABG: PH 7.43 pCO2 58, pO2 53. Potassium 5.7 BUN 29 creatinine 0.96. HbA1c 6.1 CT brain [without contrast on May 08 dose bracket: Mild diffuse age-related cerebral atrophy ABG: PH 7.16 pCO2 109 pO2 65 on 4 L White count 8.4 hemoglobin 15.9 platelets 186 potassium 4.6 BUN 28 creatinine 0.4 Troponin I 0.049, 0.045, 0.043 ProBNP 1390 LDL 92.3 TSH 1.7 UA negative Coronavirus [PCR]: Not detected Chest x-ray film personally reviewed by me-cardiomegaly, some infiltrates Chest CTA: Moderate cardiomegaly. Bilateral basilar pulmonary interstitial infiltrates. No PE. EKG tracing personally reviewed by me-sinus tachycardia. Some T wave changes. 2-D echocardiogram: Suboptimal views. EF 55-60%. Right ventricle moderately enlarged. Assessment and plan: -Acute hypoxic and hypercapnic respiratory failure from COPD exacerbation and a smoker: Slow to respond BiPAP. Solu-Medrol discontinued. Started on prednisone. Nasal cannula 6 L -Persistent atrial fibrillation: uncontrolled Lopressor 100 mg twice a day. IV Cardizem drip. Eliquis 5 mg twice a day -Acute hypoxic hypercapnic metabolic encephalopathy: Improving Follow clinically -Acute COPD exacerbation in a current smoker: Slow to respond DuoNeb 4 times a day, Pulmicort 1 mg twice a day, Perforomist 20 g twice a day. IV Solu-Medrol discontinued. Oral prednisone from today -Chronic nicotine dependence, cigarette smoker Nicotine patch 21 -Depression not otherwise specified Wellbutrin 150 mg daily -Mild acute congestive heart failure exacerbation from diastolic dysfunction EF 55-60% IV Lasix 40 mg every 12. -Troponinemia, from hemodynamic mismatch. Follow-up with cardiology Started oral prednisone today. Remains on IV Cardizem. Lopressor increased 100 mg twice a day. On eliquis. Lactulose ordered. for Constipation
[2021-05-11 14:49] LABS: Basophils % (A) 0 %; Eosinophils % (A) 0 %; HGB 17.3 gm/dL (13.0-17.5); Lymphocytes % (A) 9 %; MCH 28.6 pg (25.0-35.0); MCV 89.3 fL (80.0-100.0); Mean Platelet Volume 9.3; Monocytes # (A) 0.9 k/uL (0-1.0); Monocytes % (A) 8 %; Neutrophils # (A) 9.6 k/uL (1.3-7.7); Neutrophils % (A) 81 %; Platelet Count 211 k/uL (150-450); RBC 6.04 m/uL (4.30-5.90); RDW 15.3 % (11.5-15.5); WBC 11.9 k/uL (3.8-10.6)
[2021-05-12] MEDS: HYDROcodone/APAP 5-325MG 1 EACH TAB PO PRN ×3 (01:28→21:35)
[2021-05-12] MEDS: DILTIAZEM 125 MG in SODIUM CHLORIDE 0.9% 100 ML IV SCH ×2 (02:18→12:24)
[2021-05-12] MEDS: SYMBICORT 160-4.5 MCG INHALER INHALATION SCH ×2 (07:40→20:31)
[2021-05-12] MEDS: IPRATROPIUM-ALBUTEROL 3 ML NEB INHALATION SCH ×4 (07:40→20:31)
[2021-05-12] MEDS: ASPIRIN 81 MG PO SCH (08:42)
[2021-05-12] MEDS: METOPROLOL TARTRATE 50 MG TAB PO SCH ×2 (08:42→21:28)
[2021-05-12] MEDS: NICOTINE 21MG/24HR PATCH TRANSDERM SCH (08:42)
[2021-05-12] MEDS: APIXABAN 5 MG TAB PO SCH ×2 (08:43→21:29)
[2021-05-12] MEDS: predniSONE 20 MG TAB PO SCH (08:43)
[2021-05-12] MEDS: buPROPion XL 150 MG TAB.ER.24H PO SCH (08:43)
[2021-05-12] MEDS: FUROSEMIDE 10 MG/ML 4 ML VIAL IV SCH ×2 (08:43→21:27)
--- NOTE | 2021-05-12 13:52 | P.PN ---
Progress Note - Text Progress Note Date: 05/12/21 Chief Complaint: Shortness of breath This is a 56-year-old patient who follows that Anu Mirza. Patient presented to the ER yesterday evening becoming more short of breath and having multiple syncopal episodes. I told the ER physician that he been having falls last couple of weeks and simply passes out. He's had a bruising over his anterior chest from these falls. Denies any fever and chills. He short of breath and significant exertional dyspnea. Also some palpitations. Patient is a smoker. When I came to see the patient patient somewhat lethargic. Barely arousable. Breathing a bit heavy but not in distress. Tachycardic. I ordered blood gases. Admitted with acute hypoxic and hypercapnic respiratory failure from COPD exacerbation, metabolic encephalopathy, COPD exacerbation, mild congestive heart exacerbation, pneumonia, troponin positive from hemodynamic mismatch. Patient is put on a BiPAP. Moved to the ICU. DuoNeb. IV Solu-Medrol. IV ceftriaxone. 05/09/2021: ICU: On BiPAP the setting of 16/8, 40%, rate of 12. Telemetry shows sinus rhythm. Patient is on Precedex 0.2. For agitation. Lethargic. But arousable. 05/10/2021: ICU: Patient is off the BiPAP. On 6 L nasal cannula. Awake. A bit tired. Did eat his breakfast. In atrial fibrillation. On IV Cardizem. Patient does smoke half a pack a day. She has not had alcohol since 2008. Was not using his CPAP at home. 05/11/2021: ICU: Sitting up in a chair. On 6 L nasal cannula. Has not had a bowel movement. Lactulose ordered. Breathing better. Eating 100%. Remains in A. fib. Heart rate in 1 teens. On Cardizem drip. Lopressor increased to 100 mg twice a day. On IV Lasix. 05/12/2021: Sitting up in a chair. Nasal cannula. Oral intake good. Remains in atrial fibrillation. Heart rate controlled. Mother visiting. On Cardizem drip. Did take a shower. Good oral intake. Review of systems: Was done for constitutional, cardiovascular, GI, pulmonary. relevant finding as above Active Medications Hydrocodone Bitart/Acetaminophen (Hydrocodone/Apap 5-325mg 1 Each Tab) 1 each PO Q6HR PRN PRN Reason: Pain Last Admin: 05/12/21 09:05 Dose: 1 each Documented by: Albuterol Sulfate (Albuterol Nebulized 2.5 Mg/3 Ml) 2.5 mg INHALATION RT-Q6H PRN PRN Reason: Shortness Of Breath Albuterol/Ipratropium (Ipratropium-Albuterol 3 Ml Neb) 3 ml INHALATION RT-QID [facility] Last Admin: 05/12/21 11:30 Dose: 3 ml Documented by: Apixaban (Apixaban 5 Mg Tab) 5 mg PO BID [facility]; Protocol Last Admin: 05/12/21 08:43 Dose: 5 mg Documented by: Aspirin (Aspirin 81 Mg) 81 mg PO DAILY [facility] Last Admin: 05/12/21 08:42 Dose: 81 mg Documented by: Budesonide/Formoterol Fumarate (Symbicort 160-4.5 Mcg Inhaler) 2 puff INHALATION RT-BID [facility] Last Admin: 05/12/21 07:40 Dose: 2 puff Documented by: Bupropion HCl (Bupropion Xl 150 Mg Tab.Er.24h) 150 mg PO DAILY [facility] Last Admin: 05/12/21 08:43 Dose: 150 mg Documented by: Furosemide (Furosemide 10 Mg/Ml 4 Ml Vial) 40 mg IV Q12HR [facility] Last Admin: 05/12/21 08:43 Dose: 40 mg Documented by: Ceftriaxone Sodium 2 gm/ (Sodium Chloride) 50 mls @ 100 mls/hr IVPB Q24HR [facility] Last Admin: 05/12/21 08:42 Dose: 100 mls/hr Documented by: Diltiazem HCl 125 mg/ Sodium (Chloride) 125 mls @ 10 mls/hr IV .[id number] [facility] Last Admin: 05/12/21 12:24 Dose: Not Given Documented by: Metoprolol Tartrate (Metoprolol Tartrate 50 Mg Tab) 100 mg PO BID [facility] Last Admin: 05/12/21 08:42 Dose: 100 mg Documented by: Nicotine (Nicotine 21mg/24hr Patch) 1 patch TRANSDERM DAILY [facility] Last Admin: 05/12/21 08:42 Dose: 1 patch Documented by: Nitroglycerin (Nitroglycerin Sl Tabs 0.4 Mg Tab) 0.4 mg SUBLINGUAL Q5M PRN PRN Reason: Chest Pain Prednisone (Prednisone 20 Mg Tab) 40 mg PO DAILY [facility] Last Admin: 05/12/21 08:43 Dose: 40 mg Documented by: Past medical history to include: Atrial fibrillation, COPD, sleep apnea, depression smoker Social history: Smoker Family history: Patient lethargic. Unable to obtain Physical examination: VITAL SIGNS: 98.1, 68, 18, 124/64, 97% on 4 L GENERAL: Up in a chair, awake, comfortable EYES: Pupils equal. Conjunctiva normal. HEENT: External appearance of nose and ears normal, oral cavity: Unable to assess. NECK: JVD not raised; masses not palpable. HEART: Irregular heart sounds; mild edema LUNGS: Respiratory rate increased; decreased breath sounds. ABDOMEN: Soft, distended nontender, liver spleen not palpable, no masses palpable. CHEST wall: Bruising on the left anterior chest wall PSYCH: AO 3, mood and affect normal INVESTIGATIONS, reviewed in the clinical context: May 11: Sodium 136 potassium 4.3 BUN 39 creatinine 0.97 proBNP 3270. Pro- calcitonin 0.03 May 10: WBC 14.4 hemoglobin 13.4 potassium 4.9 creatinine 1.03 May 09: White count 8.5 hemoglobin 16.2 platelets 188 ABG: PH 7.43 pCO2 58, pO2 53. Potassium 5.7 BUN 29 creatinine 0.96. HbA1c 6.1 CT brain [without contrast on May 08 dose bracket: Mild diffuse age-related cerebral atrophy ABG: PH 7.16 pCO2 109 pO2 65 on 4 L White count 8.4 hemoglobin 15.9 platelets 186 potassium 4.6 BUN 28 creatinine 0.4 Troponin I 0.049, 0.045, 0.043 ProBNP 1390 LDL 92.3 TSH 1.7 UA negative Coronavirus [PCR]: Not detected Chest x-ray film personally reviewed by me-cardiomegaly, some infiltrates Chest CTA: Moderate cardiomegaly. Bilateral basilar pulmonary interstitial infiltrates. No PE. EKG tracing personally reviewed by me-sinus tachycardia. Some T wave changes. 2-D echocardiogram: Suboptimal views. EF 55-60%. Right ventricle moderately enlarged. Assessment and plan: -Acute hypoxic and hypercapnic respiratory failure from COPD exacerbation and a smoker: Improving BiPAP. Solu-Medrol discontinued. prednisone. Nasal cannula 4l -Persistent atrial fibrillation: Better controlled Lopressor 100 mg twice a day. IV Cardizem drip. Eliquis 5 mg twice a day -Acute hypoxic hypercapnic metabolic encephalopathy: Improved Follow clinically -Acute COPD exacerbation in a current smoker: Improving DuoNeb 4 times a day, Pulmicort 1 mg twice a day, Perforomist 20 g twice a day. Prednisone -Chronic nicotine dependence, cigarette smoker Nicotine patch 21 -Depression not otherwise specified Wellbutrin 150 mg daily -Mild acute congestive heart failure exacerbation from diastolic dysfunction EF 55-60% IV Lasix 40 mg every 12. -Troponinemia, from hemodynamic mismatch. Follow-up with cardiology IV Lasix, IV Cardizem. Lopressor 100 mg twice a day. Cutback on FiO2. Care was discussed with the patient and the mother at the bedside.
--- NOTE | 2021-05-12 14:26 | P.PN ---
Subjective Progress Note Date: 05/12/21 On today's evaluation of 05/10/2021, the patient is wide awake and alert and communicating and following questions and answering questions appropriately. Overnight, he was placed on BiPAP at a pressure of 16/8 with an FiO2 of 40%. Currently is on oxygen at 6 L. His current pulse ox is above 90%. He is still feeling that the lungs are tight. He was diuresed with IV Lasix 40 mg every 12 hours and he is in a negative balance of 2 L over the past 24 hours. He is still diuresing well. Meanwhile, his still running runs of atrial fibrillation. Currently is on Cardizem drip running at 10 mg an hour. He has not been started on anticoagulation and I'm recommended starting this patient on Eliquis 5 mg by mouth twice a day regarding long-term and to coagulation for his underlying atrial fibrillation. Echocardiogram was noted. No significant LV dysfunction. Neurology evaluated the patient regarding his outs of syncope. Repeat chest x-ray shows cardiomegaly. No significant abnormalities noted at this point in time. No angina. No palpitation. No chest pain. No focal neurological deficit. He reported the patient is still on DuoNeb nebulized treatments around the clock and the patient is also on IV Solu-Medrol. On 05/11/2021 patient seen in follow-up on selective care unit, he is currently on 6 L of oxygen, his pulse ox is 90%, he has been wearing BiPAP support at bedtime, tolerating it well. He remains on Lasix at 40 mg every 12 hours, and - 3.59 fluid balance over the last 24 hours, breathing and lower extremity edema has improved, his last chest x-ray from yesterday showed cardiomegaly, and small basilar effusions or atelectasis. He is in atrial fibrillation, this morning he had episode where his heart rate was around 1:30, she is currently on Cardizem infusion at 10 mg per hour, started on Eliquis 5 mg twice daily for anticoagulation. He is on metoprolol 100 mg twice daily. Cardiology is following. Today's labs reviewed showing sodium of 136, potassium is 4.3, ch loride is 93, CO2 37, B1 is 39, creatinine 0.97, I'll proBNP is 3270, which is an increase since his initial proBNP from 1390. On 05/12/2001 patient seen in follow-up on selective care unit, he is awake and alert, in no acute distress, he is currently on 4 L oxygen, pulse ox is 97%, breathing comfortably, lung sounds are clear, no rhonchi or wheezing, no complaints of chest pain, he is diuresing, he remains on Lasix 40 mg every 12 hours, he is in -3500 mL net fluid balance over the last 24 hours, remains in A. fib, Cardizem drip is currently at 2.5 mg per hour, 0.9 normal saline at a rate of 10 ML per hour, his labs have been reviewed, white blood cell count is 11.9, improving, his hemoglobin is 17.3, sodium is 136, potassium is 4.3, chloride is 93, CO2 is 37, BUN is 39, creatinine 0.97, his proBNP is 3270, pro-calcitonin level is negative at 0.03. Objective - Vital Signs Vital signs: Vital Signs Temp 98.1 F 05/12/21 12:00 Pulse 68 05/12/21 12:00 Resp 18 05/12/21 12:00 BP 124/64 05/12/21 12:00 Pulse Ox 97 05/12/21 12:00 Intake & Output 05/11/21 05/12/21 05/12/21 18:59 06:59 18:59 Intake Total 845 610 237 Balance 845 610 237 Weight 147.4 kg Intake: Intake, IV Titration 125 125 Amount Diltiazem 125 mg In 125 125 Sodium Chloride 0.9% 100 ml @ 10 MG/HR 10 mls/hr IV [id number] Rx#: [id number] Oral 720 485 237 Other: Voiding Method Urinal - Exam GENERAL EXAM: Alert, very pleasant morbidly obese 56 yo white male on 4 l/min with pulse ox 97 comfortable in no apparent distress. HEAD: Normocephalic/atraumatic. EYES: Normal reaction of pupils, equal size. Conjunctiva pink, sclera white. NOSE: Clear with pink turbinates. THROAT: No erythema or exudates. NECK: No masses, no JVD, no thyroid enlargement, no adenopathy. CHEST: No chest wall deformity. Symmetrical expansion. LUNGS: Equal air entry with basilar rales CVS: Irregular rate and rhythm, normal S1 and S2, no gallops, no murmurs, no rubs ABDOMEN: Soft, nontender. No hepatosplenomegaly, normal bowel sounds, no guarding or rigidity. EXTREMITIES: No clubbing, 2 + edema, chronic venous stasis skin changes, no cyanosis, 2+ pulses and upper and lower extremities. MUSCULOSKELETAL: Muscle strength and tone normal. SPINE: No scoliosis or deformity SKIN: No rashes CENTRAL NERVOUS SYSTEM: Alert and oriented -3. No focal deficits, tone is normal in all 4 extremities. PSYCHIATRIC: Alert and oriented -3. Appropriate affect. Intact judgment and insight. - Labs CBC & Chem 7: 05/11/21 07:54 05/11/21 07:54 Labs: Abnormal Lab Results - Last 24 Hours (Table) 05/11/21 Range/Units 07:54 WBC 11.9 H (3.8-10.6) k/uL RBC 6.04 H (4.30-5.90) m/uL Hct 54.0 H (39.0-53.0) % Neutrophils # 9.6 H (1.3-7.7) k/uL Assessment and Plan Plan: Assessment: 1 Acute on chronic hypoxic/hypercapnic respiratory failure , multifactorial as the patient went into A. fib RVR with a component of CHF in addition to underlying obstructive sleep apnea which put the patient into hypercapnic respiratory failure and hypoxic respiratory failure. Most recent blood gas shows improvement and acid base status. Acute respiratory acidosis recovered and the patient is currently on 6 L of oxygen by nasal cannula, responding to diuresis. 2 acute BiPAP dependent respiratory failure, recovered currently on 4 L 3 CO2 narcosis with altered mentation, improved 4 Obstructive sleep apnea, and the patient has been on CPAP pressure of 10 cm of water on outpatient basis. He does have periodic limb movement activity 5 obesity with BMI 47.5 6 COPD 7 A. fib/flutter with rapid ventricular respons, rate is controlled and Cardizem drip is running at 2.5 mg an hour. 8 history of paroxysmal atrial fibrillation 9 history of bronchial asthma 10 history of osteoarthritis 11 history of umbilical hernia 12 positive cocaine use Plan: Current medical treatment Continue diuretics for another 24 hours Continue BiPAP support at night Weaning FiO2 to keep O2 sats at 88% or above FiO2 is currently down to 4 L Follow-up electrolytes and renal profile tomorrow We'll possibly switch the patient to oral diuretics tomorrow Continue oral prednisone A. fib rate and anticoagulation Nitin per cardiology Continue to follow his clinical course I performed a history & physical examination of the patient and discussed their management with my nurse practitioner, Corrie Crawford. I reviewed the nurse practitioner's note and agree with the documented findings and plan of care. Lung sounds are positive for diffuse wheezes throughout the lung gimenez. The findings and the impression was discussed with the patient. I attest to the documentation by the nurse practitioner. Time with Patient: Less than 30
[2021-05-12] MEDS: DILTIAZEM ORAL 60 MG TAB PO SCH ×2 (15:17→21:27)
--- NOTE | 2021-05-12 15:49 | PN ---
PROGRESS NOTE This is a 56-year-old gentleman with history of COPD and obesity who was admitted to the hospital with dizziness and COPD with exacerbation. Patient also had agitation requiring sedation. Patient had bouts of atrial flutter/fibrillation with conversion to sinus rhythm. Recently patient has been in atrial fibrillation with rapid ventricular response and was started on IV Cardizem. He is also on metoprolol. Today his heart rate is well controlled and patient seems to be alert, oriented; does not appear to be in acute distress. I am going to start him on p.o. Cardizem and discontinue IV Cardizem. Continue metoprolol. Continue with respiratory management. Physical examination reveals an obese gentleman who is alert, does not appear to be in acute distress. Blood pressure 120/60, pulse is 68, respiration of 18, afebrile. Neck is supple. No JVD. HEART: S1 and S2 heard. Irregular heart sounds. Lungs are clear. Abdomen is soft. His lab values showed a white count of 11,000, hemoglobin 17.3. Electrolytes are normal. Creatinine is 0.97. FINAL IMPRESSION: 1. Paroxysmal atrial fibrillation. 2. Chronic obstructive pulmonary disease exacerbation. 3. Obesity. 4. Episodes of dizziness. PLAN: Will start him on p.o. Cardizem and discontinue IV Cardizem. Continue with metoprolol. Continue the rest of the medication. Will follow. MMODL / IJN: [id number] /
[2021-05-13] MEDS: IPRATROPIUM-ALBUTEROL 3 ML NEB INHALATION SCH ×4 (07:54→18:56)
[2021-05-13] MEDS: SYMBICORT 160-4.5 MCG INHALER INHALATION SCH ×2 (07:54→18:57)
[2021-05-13] MEDS: FUROSEMIDE 10 MG/ML 4 ML VIAL IV SCH (08:49)
[2021-05-13] MEDS: HYDROcodone/APAP 5-325MG 1 EACH TAB PO PRN ×2 (08:50→16:18)
[2021-05-13] MEDS: METOPROLOL TARTRATE 50 MG TAB PO SCH ×2 (08:50→20:15)
[2021-05-13] MEDS: buPROPion XL 150 MG TAB.ER.24H PO SCH (08:50)
[2021-05-13] MEDS: predniSONE 20 MG TAB PO SCH (08:51)
[2021-05-13] MEDS: DILTIAZEM ORAL 60 MG TAB PO SCH ×3 (08:51→20:14)
[2021-05-13] MEDS: APIXABAN 5 MG TAB PO SCH ×2 (08:51→20:14)
[2021-05-13] MEDS: NICOTINE 21MG/24HR PATCH TRANSDERM SCH (08:51)
[2021-05-13] MEDS: ASPIRIN 81 MG PO SCH (08:51)
[2021-05-13 08:58] VITALS: BMI 43.7
--- NOTE | 2021-05-13 10:38 | P.PN ---
Subjective Progress Note Date: 05/13/2105 13 2021, the patient is on 2 L of oxygen by nasal cannula. The patient remains on IV Lasix. The patient has been diuresing very well and he has diabetes and other 1/2 L over the past 24 hours. His symptoms of his blood work, his renal function was still holding. I do not have that updated blood work and this needs to be done immediately as the patient has been diuresing aggressively with Lasix. His overall respiratory status is stable for now. In terms of his atrial fibrillation, the patient is is on metoprolol 100 mg by mouth twice a day for a fistula. The patient is also on long-term and coagulation with Eliquis. He is morbidly obese. Obstructive sleep apnea patient utilizes CPAP at home. He was also started on Cardizem 60 minutes by mouth 3 times a day to complement with his metoprolol for rate control. Objective - Vital Signs Vital signs: Vital Signs Temp 98.2 F 05/13/21 08:00 Pulse 80 05/13/21 08:10 Resp 18 05/13/21 08:00 BP 141/87 05/13/21 08:00 Pulse Ox 93 L 05/13/21 07:56 Intake & Output 05/12/21 05/13/21 05/13/21 18:59 06:59 18:59 Intake Total 777 485 Balance 777 485 Weight 146.3 kg 146.3 kg Intake: Oral 777 485 Other: Voiding Method Toilet Toilet # Voids 1 - Exam Morbidly obese, 56-year-old male patient, currently the patient on 2L of oxygen by nasal cannula. Head exam was generally normal. There was no scleral icterus or corneal arcus. Mucous membranes were moist. Neck was supple and without jugular venous distension, thyromegaly, or carotid bruits. Carotids were easily palpable bilaterally. There was no adenopathy. The patient has significant crowding of the posterior pharynx. He has a Mallampati class IV. He has cyanosis of the mucosal membranes. Lungs sounds are diminished bilaterally and there crackles at the lung bases. Few scattered expiratory wheezes. Cardiac exam revealed the PMI to be normally situated and sized. The rhythm is irregular consistent with atrial fibrillation and no extrasystoles were noted during several minutes of auscultation. The first and second heart sounds were normal and physiologic splitting of the second heart sound was noted. There were no murmurs, rubs, clicks, or gallops. Abdomen abdomenAbdominal exam revealed normal bowel sounds. The abdomen was soft, non-tender, and without masses, organomegaly, or appreciable enlargement of the abdominal aorta. And the patient has a tiny umbilical hernia Extremities show trace edema and there is no cyanosis or clubbing. Neurologically the patient is awake and alert and there is no focal ne urological deficits. - Labs CBC & Chem 7: 05/11/21 07:54 05/11/21 07:54 Assessment and Plan Plan: 1 Acute on chronic hypoxic/hypercapnic respiratory failure , multifactorial as the patient went into A. fib RVR with a component of CHF in addition to underlying obstructive sleep apnea which put the patient into hypercapnic respiratory failure and hypoxic respiratory failure. Most recent blood gas shows improvement and acid base status. Acute respiratory acidosis recovered and the patient is currently on 2 L of oxygen by nasal cannula and continues to diurese adequately. Celexa respiratory monitors. His atrial fibrillation is under better control for now. 2 acute BiPAP dependent respiratory failure, recovered currently on 2 L 3 CO2 narcosis with altered mentation, improved 4 Obstructive sleep apnea, and the patient has been on CPAP pressure of 10 cm of water on outpatient basis. He does have periodic limb movement activity 5 obesity with BMI 47.5 6 COPD 7 A. fib/flutter with rapid ventricular respons, rate is controlled and Cardizem drip is running at 10 mg an hour. 8 history of paroxysmal atrial fibrillation 9 history of bronchial asthma 10 history of osteoarthritis 11 history of umbilical hernia 12 positive cocaine use Plan Continue IV Lasix Switch this patient to oral Lasix 40 mg by mouth twice a day and check his electrolytes Monitor oxygenation and try to wean him off as long as his saturation above 90% Wean down FiO2 to tolerate a saturation above 90% Blood gas showed improvement and acid base status Echocardiogram was noted Increase the metoprolol to 100 mg twice a day and he is also on Cardizem systemic illness. 3 times a day Start the patient on Eliquis 5 mg by mouth twice a day prednisone burst taper Possible discharge within next 24 hours. His condition is stable for now. Need to check his electrolytes.
[2021-05-13 12:56] LABS: Basophils % (A) 0 %; Eosinophils # (A) 0.1 k/uL (0-0.7); Eosinophils % (A) 1 %; HCT 54.3 % (39.0-53.0); Lymphocytes # (A) 0.8 k/uL (1.0-4.8); Lymphocytes % (A) 6 %; MCHC 33.1 g/dL (31.0-37.0); MCV 87.5 fL (80.0-100.0); Mean Platelet Volume 8.1; Monocytes # (A) 0.6 k/uL (0-1.0); Monocytes % (A) 5 %; Neutrophils # (A) 11.1 k/uL (1.3-7.7); Neutrophils % (A) 87 %; Platelet Count 223 k/uL (150-450); RBC 6.21 m/uL (4.30-5.90); WBC 12.8 k/uL (3.8-10.6)
[2021-05-13 13:03] LABS: African American GFR (CKD) >90 (>60 ml/min/1.73 sqM); Blood Urea Nitrogen 32 mg/dL (9-20); Calcium 8.8 mg/dL (8.4-10.2); Chloride 88 mmol/L (98-107); Glucose 155 mg/dL (74-99); Non-African American GFR(CKD) 79 (>60 ml/min/1.73 sqM); Potassium 5.1 mmol/L (3.5-5.1); Sodium 135 mmol/L (137-145)
[2021-05-13 13:10] LABS: Anion Gap 6 mmol/L
[2021-05-13 13:17] LABS: Carbon Dioxide 41 mmol/L (22-30)
--- NOTE | 2021-05-13 13:37 | P.PN ---
Subjective Progress Note Date: 05/13/21 HISTORY OF PRESENT ILLNESS: This is a 56 year old male with a past medical history significant for asthma, COPD, nicotine dependence, and questionable atrial fibrillation. Patient states he was following with a product builder at [facility]. We have been asked to see the patient in consultation for syncope. Patient examined at the bedside in the ER. Patient is a poor historian and unable to provide accurate description of the events that brought him to the hospital. He states he came to the hospital because he "kept falling asleep standing up". It is unclear if the patient had any actual syncope episodes at home. Denies CP or SOB. Patient was found to be in atrial flutter with RVR in the ER. He is currently in sinus mechanism at the time of examination. Echocardiogram completed revealed ejection fraction 55-60%. mild mitral regurgitation. Mild tricuspid regurgitation. Small generalized pericardial effusion. CT completed which was negative for PE. 05/10/2011: This patient is admitted to the hospital with COPD exacerbation and altered mental status. He was also found to have paroxysmal and persistent atrial fibrillation. He was on IV Cardizem which were changed to by mouth Cardizem. Dip Guider Stoves also start him on anticoagulation therapy. Patient is young without any history of hypertension or diabetes and known coronary artery disease. Patient is obese and may have sleep apnea. Continue current medical therapy. Patient is being transferred to telemetry unit 05/11/2021 Patient examined this morning at the bedside. He denies chest pain or pressure. Denies SOB. Telemetry reveals atrial fibrillation with a heart rate in the 120s. He is currently on a Cardizem drip. 05/13/2021: Patient is in A. fib with rate controlled. Is off Cardizem drip, continued on oral Cardizem 60 mg 3 times daily and Lopressor 100 mg twice daily as well as eliquis 5 mg twice daily. WBC 12.8, hemoglobin 18.0. CO2 is 41, creatinine 1.04. PHYSICAL EXAM: VITAL SIGNS: Reviewed. GENERAL: Well-developed in no acute distress. HEENT: Head is normocephalic. Pupils are equal, round. Sclerae anicteric. Mucous membranes of the mouth are moist. Neck supple. No JVD or thyromegaly LUNGS: Respirations even and unlabored. Lungs diminished to auscultation bilaterally. HEART: Tachycardic. Irregular rate and rhythm. S1 and S2 heard. ABDOMEN: Soft. Nondistended. Nontender. EXTREMITIES: Normal range of motion. No clubbing or cyanosis. Peripheral pulses intact. Trace lower extremity edema NEUROLOGIC: Awake and alert. Oriented x 3. ASSESSMENT: Acute on chronic hypoxic and hypercapnic respiratory failure Typical atrial flutter with RVR Paroxysmal atrial fibrillation with RVR Questionable syncope COPD Nicotine dependence Cocaine use Objective sleep apnea PLAN: Continue Cardizem, Lopressor and eliquis Continue Lasix 40 mg oral twice daily Patient is clear for discharge from cardiology. Further recommendations pending patient course Nurse practitioner note has been reviewed by physician. Signing provider agrees with the documented findings, assessment, and plan of care. Objective - Vital Signs Vital signs: Vital Signs Temp 98.2 F 05/13/21 08:00 Pulse 80 05/13/21 08:10 Resp 18 05/13/21 08:00 BP 141/87 05/13/21 08:00 Pulse Ox 93 L 05/13/21 07:56 Intake & Output 05/12/21 05/13/21 05/13/21 18:59 06:59 18:59 Intake Total 777 485 Balance 777 485 Weight 146.3 kg 146.3 kg Intake: Oral 777 485 Other: Voiding Method Toilet Toilet # Voids 1 - Labs CBC & Chem 7: 05/13/21 12:21 05/13/21 12:21
[2021-05-13] MEDS: FUROSEMIDE 40 MG TAB PO SCH (15:33)
--- NOTE | 2021-05-13 16:14 | P.PN ---
Progress Note - Text Progress Note Date: 05/13/21 Chief Complaint: Shortness of breath This is a 56-year-old patient who follows that Anu Mirza. Patient presented to the ER yesterday evening becoming more short of breath and having multiple syncopal episodes. I told the ER physician that he been having falls last couple of weeks and simply passes out. He's had a bruising over his anterior chest from these falls. Denies any fever and chills. He short of breath and significant exertional dyspnea. Also some palpitations. Patient is a smoker. When I came to see the patient patient somewhat lethargic. Barely arousable. Breathing a bit heavy but not in distress. Tachycardic. I ordered blood gases. Admitted with acute hypoxic and hypercapnic respiratory failure from COPD exacerbation, metabolic encephalopathy, COPD exacerbation, mild congestive heart exacerbation, pneumonia, troponin positive from hemodynamic mismatch. Patient is put on a BiPAP. Moved to the ICU. DuoNeb. IV Solu-Medrol. IV ceftriaxone. Patient started to response slowly. Counseled about smoking. Went into atrial fibrillation. Put on IV Cardizem beta ag. FiO2 scale back. May 13: Sitting up. Eating. Requiring oxygen. I did manage for being made for patient to be discharged today. Patient informed that she has no right today. Hence discharge postponed till tomorrow. Pulse ox 86% on room air with activity. Atrial fibrillation rate controlled. Review of systems: Was done for constitutional, cardiovascular, GI, pulmonary. relevant finding as above Active Medications Hydrocodone Bitart/Acetaminophen (Hydrocodone/Apap 5-325mg 1 Each Tab) 1 each PO Q6HR PRN PRN Reason: Pain Last Admin: 05/13/21 08:50 Dose: 1 each Documented by: Albuterol Sulfate (Albuterol Nebulized 2.5 Mg/3 Ml) 2.5 mg INHALATION RT-Q6H PRN PRN Reason: Shortness Of Breath Albuterol/Ipratropium (Ipratropium-Albuterol 3 Ml Neb) 3 ml INHALATION RT-QID [facility] Last Admin: 05/13/21 11:25 Dose: 3 ml Documented by: Apixaban (Apixaban 5 Mg Tab) 5 mg PO BID [facility]; Protocol Last Admin: 05/13/21 08:51 Dose: 5 mg Documented by: Aspirin (Aspirin 81 Mg) 81 mg PO DAILY [facility] Last Admin: 05/13/21 08:51 Dose: 81 mg Documented by: Budesonide/Formoterol Fumarate (Symbicort 160-4.5 Mcg Inhaler) 2 puff INHALATION RT-BID [facility] Last Admin: 05/13/21 07:54 Dose: 2 puff Documented by: Bupropion HCl (Bupropion Xl 150 Mg Tab.Er.24h) 150 mg PO DAILY [facility] Last Admin: 05/13/21 08:50 Dose: 150 mg Documented by: Diltiazem HCl (Diltiazem Oral 60 Mg Tab) 60 mg PO TID [facility] Last Admin: 05/13/21 15:33 Dose: 60 mg Documented by: Furosemide (Furosemide 40 Mg Tab) 40 mg PO BID@0900,1600 [facility] Last Admin: 05/13/21 15:33 Dose: 40 mg Documented by: Metoprolol Tartrate (Metoprolol Tartrate 50 Mg Tab) 100 mg PO BID [facility] Last Admin: 05/13/21 08:50 Dose: 100 mg Documented by: Nicotine (Nicotine 21mg/24hr Patch) 1 patch TRANSDERM DAILY [facility] Last Admin: 05/13/21 08:51 Dose: 1 patch Documented by: Nitroglycerin (Nitroglycerin Sl Tabs 0.4 Mg Tab) 0.4 mg SUBLINGUAL Q5M PRN PRN Reason: Chest Pain Prednisone (Prednisone 20 Mg Tab) 40 mg PO DAILY [facility] Last Admin: 05/13/21 08:51 Dose: 40 mg Documented by: Past medical history to include: Atrial fibrillation, COPD, sleep apnea, depression smoker Social history: Smoker Family history: Patient lethargic. Unable to obtain Physical examination: VITAL SIGNS: 74, 18, 1 22 x 71, 86% room air. 95% on 2 L GENERAL: Sitting up at the edge of the bed, eating lunch EYES: Pupils equal. Conjunctiva normal. HEENT: External appearance of nose and ears normal, oral cavity: Unable to assess. NECK: JVD not raised; masses not palpable. HEART: Irregular heart sounds; mild edema LUNGS: Respiratory rate increased; decreased breath sounds. ABDOMEN: Soft, distended nontender, liver spleen not palpable, no masses palpable. CHEST wall: Bruising on the left anterior chest wall PSYCH: AO 3, mood and affect normal INVESTIGATIONS, reviewed in the clinical context: May 18: WBC 12.8 hemoglobin 18 platelets 223 potassium 5.1 BUN 32 cre atinine 1.04 Pro-calcitonin 0.03 May 09: White count 8.5 hemoglobin 16.2 platelets 188 ABG: PH 7.43 pCO2 58, pO2 53. Potassium 5.7 BUN 29 creatinine 0.96. HbA1c 6.1 CT brain [without contrast on May 08 dose bracket: Mild diffuse age-related cerebral atrophy ABG: PH 7.16 pCO2 109 pO2 65 on 4 L White count 8.4 hemoglobin 15.9 platelets 186 potassium 4.6 BUN 28 creatinine 0.4 Troponin I 0.049, 0.045, 0.043 ProBNP 1390 LDL 92.3 TSH 1.7 UA negative Coronavirus [PCR]: Not detected Chest x-ray film personally reviewed by me-cardiomegaly, some infiltrates Chest CTA: Moderate cardiomegaly. Bilateral basilar pulmonary interstitial infiltrates. No PE. EKG tracing personally reviewed by me-sinus tachycardia. Some T wave changes. 2-D echocardiogram: Suboptimal views. EF 55-60%. Right ventricle moderately enlarged. Assessment and plan: -Acute hypoxic and hypercapnic respiratory failure from COPD exacerbation and a smoker: Improving BiPAP. Solu-Medrol discontinued. prednisone. Nasal cannula 2l -Persistent atrial fibrillation: Better controlled Lopressor 100 mg twice a day. Cardizem 60 mg 3 times a day. Eliquis 5 mg twice a day -Acute hypoxic hypercapnic metabolic encephalopathy: Improved Follow clinically -Acute COPD exacerbation in a current smoker: Improving DuoNeb 4 times a day, Pulmicort 1 mg twice a day, Perforomist 20 g twice a day. Prednisone -Chronic nicotine dependence, cigarette smoker Nicotine patch 21 -Depression not otherwise specified Wellbutrin 150 mg daily -Mild acute congestive heart failure exacerbation from diastolic dysfunction EF 55-60% IV Lasix 40 mg every 12. -Troponinemia, from hemodynamic mismatch. Follow-up with cardiology -Metabolic alkalosis from diuresis Temporary hold Lasix Hold Lasix. Lopressor 100 mg twice a day. Cardizem 60 mg 3 times a day. FiO2 decreased to 2 L. Patient does not have a right for home today. Discharged tomorrow.
[2021-05-14] MEDS: HYDROcodone/APAP 5-325MG 1 EACH TAB PO PRN ×2 (00:05→06:56)
[2021-05-14] MEDS: SYMBICORT 160-4.5 MCG INHALER INHALATION SCH (07:19)
[2021-05-14] MEDS: IPRATROPIUM-ALBUTEROL 3 ML NEB INHALATION SCH ×2 (07:19→11:16)
[2021-05-14 08:41] VITALS: TEMP 97.3
[2021-05-14] MEDS: APIXABAN 5 MG TAB PO SCH (08:47)
[2021-05-14] MEDS: NICOTINE 21MG/24HR PATCH TRANSDERM SCH (08:47)
[2021-05-14] MEDS: ASPIRIN 81 MG PO SCH (08:48)
[2021-05-14] MEDS: predniSONE 20 MG TAB PO SCH (08:48)
[2021-05-14] MEDS: FUROSEMIDE 40 MG TAB PO SCH (08:48)
[2021-05-14] MEDS: DILTIAZEM ORAL 60 MG TAB PO SCH (08:48)
[2021-05-14] MEDS: buPROPion XL 150 MG TAB.ER.24H PO SCH (08:48)
[2021-05-14] MEDS: METOPROLOL TARTRATE 50 MG TAB PO SCH (08:48)
--- NOTE | 2021-05-14 09:43 | P.PN ---
Subjective Progress Note Date: 05/14/2105 14 2021, the patient's pulse ox is dropped down to 88% on room air oxygen. For that reason, raises are being made to discharge this patient home along with home oxygen. The patient was switched to oral diuretics and the patient is currently on 40 mg of Lasix twice a day. The patient is also completing a prednisone burst taper. He is on long-term anticoagulation with Eliquis. He has obstructive sleep apnea and the patient has a CPAP machine at home. His A. fib is under better control. He remains on a combination of Cardizem 60 mg by mouth 3 times a day and the patient is also on metoprolol. No angina. No palpitation. No episodes of syncope or passing out. His condition has been stable for now. Possible discharge today. Tolerating his diet. Using incentive spirometer. He typically follows up with me regarding his MARIANNE on outpatient basis. Objective - Vital Signs Vital signs: Vital Signs Temp 97.3 F L 05/14/21 08:40 Pulse 72 05/14/21 08:40 Resp 18 05/14/21 08:40 BP 139/92 05/14/21 08:40 Pulse Ox 88 L 05/14/21 08:40 Intake & Output 05/13/21 05/14/21 05/14/21 18:59 06:59 18:59 Intake Total 1500 485 Output Total 300 Balance 1200 485 Weight 146.3 kg 143.5 kg Intake: Oral 1500 485 Output: Urine 300 Other: Voiding Method Toilet Toilet Toilet # Voids 1 - Exam Morbidly obese, 56-year-old male patient, currently the patient on 2L of oxygen by nasal cannula. Head exam was generally normal. There was no scleral icterus or corneal arcus. Mucous membranes were moist. Neck was supple and without jugular venous distension, thyromegaly, or carotid bruits. Carotids were easily palpable bilaterally. There was no adenopathy. The patient has significant crowding of the posterior pharynx. He has a Mallampati class IV. He has cyanosis of the mucosal membranes. Lungs sounds are diminished bilaterally and there crackles at the lung bases. Few scattered expiratory wheezes. Cardiac exam revealed the PMI to be normally situated and sized. The rhythm is irregular consistent with atrial fibrillation and no extrasystoles were noted during several minutes of auscultation. The first and second heart sounds were normal and physiologic splitting of the second heart sound was noted. There were no murmurs, rubs, clicks, or gallops. Abdomen abdomenAbdominal exam revealed normal bowel sounds. The abdomen was soft, non-tender, and without masses, organomegaly, or appreciable enlargement of the abdominal aorta. And the patient has a tiny umbilical hernia Extremities show trace edema and there is no cyanosis or clubbing. Neurologically the patient is awake and alert and there is no focal neuro logical deficits. - Labs CBC & Chem 7: 05/13/21 12:21 05/13/21 12:21 Labs: Abnormal Lab Results - Last 24 Hours (Table) 05/13/21 05/13/21 Range/Units 12: 12:21 WBC 12.8 H (3.8-10.6) k/uL RBC 6.21 H (4.30-5.90) m/uL Hgb 18.0 H (13.0-17.5) gm/dL Hct 54.3 H (39.0-53.0) % Neutrophils # 11.1 H (1.3-7.7) k/uL Lymphocytes # 0.8 L (1.0-4.8) k/uL Sodium 135 L (137-145) mmol/L Chloride 88 L (98-107) mmol/L Carbon Dioxide 41 H* (22-30) mmol/L BUN 32 H (9-20) mg/dL Glucose 155 H (74-99) mg/dL Assessment and Plan Plan: 1 Acute on chronic hypoxic/hypercapnic respiratory failure , multifactorial as the patient went into A. fib RVR with a component of CHF in addition to underlying obstructive sleep apnea which put the patient into hypercapnic respiratory failure and hypoxic respiratory failure. Most recent blood gas shows improvement and acid base status. Acute respiratory acidosis recovered and the patient is currently on 2 L of oxygen by nasal cannula and continues to diurese adequately. Celexa respiratory monitors. His atrial fibrillation is under better control for now. 2 acute BiPAP dependent respiratory failure, recovered currently on 2 L 3 CO2 narcosis with altered mentation, improved 4 Obstructive sleep apnea, and the patient has been on CPAP pressure of 10 cm of water on outpatient basis. He does have periodic limb movement activity 5 obesity with BMI 47.5 6 COPD 7 A. fib/flutter with rapid ventricular respons, rate is controlled 8 history of paroxysmal atrial fibrillation 9 history of bronchial asthma 10 history of osteoarthritis 11 history of umbilical hernia 12 positive cocaine use Plan Continue lasix 40 mg BID [employer] home oxygen concentrator and portable tanks Monitor oxygenation and try to wean him off as long as his saturation above 90% Wean down FiO2 to tolerate a saturation above 90% Blood gas showed improvement and acid base status Echocardiogram was noted metoprolol to 100 mg twice a day and he is also on Cardizem 60 mg 3 times a day Start the patient on Eliquis 5 mg by mouth twice a day prednisone burst taper Home today
[2021-05-14 12:02] VITALS: BP 126/85; PULSE 66; RESP 17
--- NOTE | 2021-05-14 13:52 | P.PN ---
Subjective Progress Note Date: 05/14/21 HISTORY OF PRESENT ILLNESS: This is a 56 year old male with a past medical history significant for asthma, COPD, nicotine dependence, and questionable atrial fibrillation. Patient states he was following with a benefits clerk at [facility]. We have been asked to see the patient in consultation for syncope. Patient examined at the bedside in the ER. Patient is a poor historian and unable to provide accurate description of the events that brought him to the hospital. He states he came to the hospital because he "kept falling asleep standing up". It is unclear if the patient had any actual syncope episodes at home. Denies CP or SOB. Patient was found to be in atrial flutter with RVR in the ER. He is currently in sinus mechanism at the time of examination. Echocardiogram completed revealed ejection fraction 55-60%. mild mitral regurgitation. Mild tricuspid regurgitation. Small generalized pericardial effusion. CT completed which was negative for PE. 05/10/2011: This patient is admitted to the hospital with COPD exacerbation and altered mental status. He was also found to have paroxysmal and persistent atrial fibrillation. He was on IV Cardizem which were changed to by mouth Cardizem. Sexton Helper also start him on anticoagulation therapy. Patient is young without any history of hypertension or diabetes and known coronary artery disease. Patient is obese and may have sleep apnea. Continue current medical therapy. Patient is being transferred to telemetry unit 05/11/2021 Patient examined this morning at the bedside. He denies chest pain or pressure. Denies SOB. Telemetry reveals atrial fibrillation with a heart rate in the 120s. He is currently on a Cardizem drip. 05/13/2021: Patient is in A. fib with rate controlled. Is off Cardizem drip, continued on oral Cardizem 60 mg 3 times daily and Lopressor 100 mg twice daily as well as eliquis 5 mg twice daily. WBC 12.8, hemoglobin 18.0. CO2 is 41, creatinine 1.04. 05/14/2021: Cardizem. Patient denies having any chest pain or shortness of breath. monitor worker has been atrial fibrillation with controlled rate. Patient is maintained on eliquis Lopressor and Cardizem. Lasix will be decreased to once daily. PHYSICAL EXAM: VITAL SIGNS: Reviewed. GENERAL: Well-developed in no acute distress. HEENT: Head is normocephalic. Pupils are equal, round. Sclerae anicteric. Mucous membranes of the mouth are moist. Neck supple. No JVD or thyromegaly LUNGS: Respirations even and unlabored. Lungs diminished to auscultation bilaterally. HEART: Tachycardic. Irregular rate and rhythm. S1 and S2 heard. ABDOMEN: Soft. Nondistended. Nontender. EXTREMITIES: Normal range of motion. No clubbing or cyanosis. Peripheral pulses intact. Trace lower extremity edema NEUROLOGIC: Awake and alert. Oriented x 3. ASSESSMENT: Acute on chronic hypoxic and hypercapnic respiratory failure Typical atrial flutter with RVR Paroxysmal atrial fibrillation with RVR Questionable syncope COPD Nicotine dependence Cocaine use Objective sleep apnea PLAN: Continue Cardizem, Lopressor and eliquis Continue Lasix 40 mg oral daily Patient is clear for discharge from cardiology. Further recommendations pending patient course Nurse practitioner note has been reviewed by physician. Signing provider agrees with the documented findings, assessment, and plan of care. Objective - Vital Signs Vital signs: Vital Signs Temp 97.3 F L 05/14/21 08:40 Pulse 94 05/14/21 11:33 Resp 18 05/14/21 08:40 BP 139/92 05/14/21 08:40 Pulse Ox 88 L 05/14/21 08:40 Intake & Output 05/13/21 05/14/21 05/14/21 18:59 06:59 18:59 Intake Total 1500 485 Output Total 300 Balance 1200 485 Weight 146.3 kg 143.5 kg Intake: Oral 1500 485 Output: Urine 300 Other: Voiding Method Toilet Toilet Toilet # Voids 1 - Labs CBC & Chem 7: 05/13/21 12:21 05/13/21 12:21 Labs: Abnormal Lab Results - Last 24 Hours (Table) 05/13/21 05/13/21 Range/Units 12:21 12:21 WBC 12.8 H (3.8-10.6) k/uL RBC 6.21 H (4.30-5.90) m/uL Hgb 18.0 H (13.0-17.5) gm/dL Hct 54.3 H (39.0-53.0) % Neutrophils # 11.1 H (1.3-7.7) k/uL Lymphocytes # 0.8 L (1.0-4.8) k/uL Sodium 135 L (137-145) mmol/L Chloride 88 L (98-107) mmol/L Carbon Dioxide 41 H* (22-30) mmol/L BUN 32 H (9-20) mg/dL Glucose 155 H (74-99) mg/dL
--- NOTE | 2021-05-14 15:36 | P.DS ---
Providers Date of admission: 05/08/21 13:43 Expected date of discharge: 05/14/21 Attending physician: You Krause Consults: 05/07/21 18:18 Consult Physician Urgent Consulting Provider: Adam Alarcon Consult Reason/Comments: tachycardia, pericardial effusion, elevated torp Do you want consulting provider notified?: Yes 05/08/21 11:55 Consult Physician Routine Consulting Provider: Rubén Gregory Consult Reason/Comments: copd Do you want consulting provider notified?: Yes 05/08/21 12:53 Consult Physician Urgent Consulting Provider: Chaz Maciel Consult Reason/Comments: syncope Do you want consulting provider notified?: Yes Primary care physician: Anu Mirza [facility] Course: Chief Complaint: Shortness of breath This is a 56-year-old patient who follows that Anu Mirza. Patient presented to the ER yesterday evening becoming more short of breath and having multiple syncopal episodes. I told the ER physician that he been having falls last couple of weeks and simply passes out. He's had a bruising over his anterior chest from these falls. Denies any fever and chills. He short of breath and significant exertional dyspnea. Also some palpitations. Patient is a smoker. When I came to see the patient patient somewhat lethargic. Barely arousable. Breathing a bit heavy but not in distress. Tachycardic. I ordered blood gases. Admitted with acute hypoxic and hypercapnic respiratory failure from COPD exacerbation, metabolic encephalopathy, COPD exacerbation, mild congestive heart exacerbation, pneumonia, troponin positive from hemodynamic mismatch. Patient is put on a BiPAP. Moved to the ICU. DuoNeb. IV Solu-Medrol. IV ceftriaxone. Patient started to response slowly. Counseled about smoking. Went into atrial fibrillation. Put on IV Cardizem beta ag. FiO2 scale back. Today: Home oxygen had been arranged. 86% with activity. Pulse ox. Discussed with the patient. Consultation: Dr. Gregory and partners from pulmonary Dr. Rey from cardiology Past medical history to include: Atrial fibrillation, COPD, sleep apnea, depression smoker Social history: Smoker Family history: Patient lethargic. Unable to obtain Physical examination: VITAL SIGNS: 97.3, 94, 17, 128/85, 88% on room air. 91% on 2 L GENERAL: Sitting up at the edge of the bed, comfortable EYES: Pupils equal. Conjunctiva normal. HEENT: External appearance of nose and ears normal, oral cavity: Unable to assess. NECK: JVD not raised; masses not palpable. HEART: Irregular heart sounds; mild edema LUNGS: Respiratory rate increased; decreased breath sounds. ABDOMEN: Soft, distended nontender, liver spleen not palpable, no masses palpable. CHEST wall: Bruising on the left anterior chest wall PSYCH: AO 3, mood and affect normal INVESTIGATIONS, reviewed in the clinical context: May 18: WBC 12.8 hemoglobin 18 platelets 223 potassium 5.1 BUN 32 creatinine 1.04 Pro-calcitonin 0.03 May 09: White count 8.5 hemoglobin 16.2 platelets 188 ABG: PH 7.43 pCO2 58, pO2 53. Potassium 5.7 BUN 29 creatinine 0.96. HbA1c 6.1 CT brain [without contrast on May 08 dose bracket: Mild diffuse age-related cerebral atrophy ABG: PH 7.16 pCO2 109 pO2 65 on 4 L White count 8.4 hemoglobin 15.9 platelets 186 potassium 4.6 BUN 28 creatinine 0.4 Troponin I 0.049, 0.045, 0.043 ProBNP 1390 LDL 92.3 TSH 1.7 UA negative Coronavirus [PCR]: Not detected Chest x-ray film personally reviewed by me-cardiomegaly, some infiltrates Chest CTA: Moderate cardiomegaly. Bilateral basilar pulmonary interstitial infiltrates. No PE. EKG tracing personally reviewed by me-sinus tachycardia. Some T wave changes. 2-D echocardiogram: Suboptimal views. EF 55-60%. Right ventricle moderately enlarged. Assessment and plan: -Acute hypoxic and hypercapnic respiratory failure from COPD exacerbation and a smoker: Improving BiPAP. Solu-Medrol discontinued. prednisone taper. Nasal cannula 2l -Persistent atrial fibrillation: Better controlled Lopressor 100 mg twice a day. Cardizem 60 mg 3 times a day. Eliquis 5 mg twice a day -Acute hypoxic hypercapnic metabolic encephalopathy: Improved Follow clinically -Acute COPD exacerbation in a current smoker: Improving DuoNeb 4 times a day, Pulmicort 1 mg twice a day, Perforomist 20 g twice a day. Prednisone Discharged on Symbicort 160/4.52 puffs twice a day. Habitrol when necessary. Prednisone taper. -Chronic nicotine dependence, cigarette smoker Nicotine patch 21 -Depression not otherwise specified Wellbutrin 150 mg daily -Mild acute congestive heart failure exacerbation from diastolic dysfunction EF 55-60% IV Lasix 40 mg every 12. Discharged on Lasix 40 mg daily -Troponinemia, from hemodynamic mismatch. Follow-up with cardiology -Metabolic alkalosis from diuresis Disposition: Home Plan - Discharge Summary New Discharge Prescriptions: New Aspirin 81 mg PO DAILY tab Metoprolol Succinate [Kapspargo Sprinkle] 100 mg PO BID #60 cap predniSONE 10 mg PO DAILY #30 tab Budesonide-Formot 160-4.5 Mcg [Symbicort 160-4.5 Mcg Inhaler] 2 puff INHALATION RT-BID #1 gm Diltiazem Cd [Cardizem CD] 180 mg PO DAILY #30 cap Apixaban [Eliquis] 5 mg PO BID #60 tab Nicotine 21Mg/24Hr Patch [Habitrol] 1 patch TRANSDERM DAILY #14 patch Furosemide [Lasix] 40 mg PO DAILY #30 tab Continue Fluticasone Propion/Salmeterol [Wixela 250-50 Inhub] 1 puff INHALATION RT-BID Albuterol Inhaler [Ventolin Hfa Inhaler] 2 puff INHALATION RT-Q6H PRN PRN Reason: Shortness Of Breath Potassium Gluconate [Potassium Gluconate ER] 99 mg PO DAILY buPROPion XL [Wellbutrin XL] 150 mg PO DAILY Naproxen Sodium 440 mg PO Q12H PRN PRN Reason: Pain Discontinued Loratadine [Claritin] 10 mg PO DAILY PRN PRN Reason: Allergy Symptoms Furosemide [Lasix] 20 mg PO DAILY Discharge Medication List Albuterol Inhaler [Ventolin Hfa Inhaler] 2 puff INHALATION RT-Q6H PRN 05/07/21 [History] Fluticasone Propion/Salmeterol [Wixela 250-50 Inhub] 1 puff INHALATION RT-BID 05/07/21 [History] Naproxen Sodium 440 mg PO Q12H PRN 05/07/21 [History] Potassium Gluconate [Potassium Gluconate ER] 99 mg PO DAILY 05/07/21 [History] buPROPion XL [Wellbutrin XL] 150 mg PO DAILY 05/07/21 [History] Apixaban [Eliquis] 5 mg PO BID #60 tab 05/13/21 [Rx] Aspirin 81 mg PO DAILY tab 05/13/21 [Rx] Budesonide-Formot 160-4.5 Mcg [Symbicort 160-4.5 Mcg Inhaler] 2 puff INHALATION RT-BID #1 gm 05/13/21 [Rx] Diltiazem Cd [Cardizem CD] 180 mg PO DAILY #30 cap 05/13/21 [Rx] Furosemide [Lasix] 40 mg PO DAILY #30 tab 05/13/21 [Rx] Metoprolol Succinate [Kapspargo Sprinkle] 100 mg PO BID #60 cap 05/13/21 [Rx] Nicotine 21Mg/24Hr Patch [Habitrol] 1 patch TRANSDERM DAILY #14 patch 05/13/21 [Rx] predniSONE 10 mg PO DAILY #30 tab 05/13/21 [Rx] Follow up Appointment(s)/Referral(s): Anu Mirza MD [Primary Care Provider] - 1-2 days (Office closed-please make appointment in 1-2 days) Angela Burton MD [STAFF PHYSICIAN] - 10 Days (Office closed-please make appointment for 10 days follow up) Rubén Gregory MD [STAFF PHYSICIAN] - 2 Weeks (Office closed-please make appointment for 2 week follow up) Patient Instructions/Handouts: Syncope (DC) Discharge Disposition: HOME SELF-CARE
[2021-05-15] MEDS ORDERED: FUROSEMIDE 40 MG TAB PO SCH (09:00)
== END 2021-05-14 13:57 | disposition home or self-care (01) | DRG 190 ==
LOC: EC 14:05 → 3SCARD 18:18 → 2SICU 05-08 12:53 → OBSVTOIN 05-08 13:43 → 2SICU 05-08 15:25 → 3SCARD 05-10 15:43
PROVIDERS: ADMIT Hospitalist; ATTEND Hospitalist
PROC: 5A09557 Assistance with Respiratory Ventilation, Greater than 96 Consecutive Hours, Continuous Positive Airway Pressure (ICD-10-PCS; principal; 2021-05-08)
DX: J44.1 Chronic obstructive pulmonary disease with (acute) exacerbation (principal); J96.21 Acute and chronic respiratory failure with hypoxia; J96.22 Acute and chronic respiratory failure with hypercapnia; I50.33 Acute on chronic diastolic (congestive) heart failure; G92.8 Other toxic encephalopathy; I31.3 Pericardial effusion (noninflammatory); E87.4 Mixed disorder of acid-base balance; I48.19 Other persistent atrial fibrillation; I48.3 Typical atrial flutter; Z68.42 Body mass index [BMI] 45.0-49.9, adult; J98.11 Atelectasis; G47.61 Periodic limb movement disorder; E66.01 Morbid (severe) obesity due to excess calories; T40.5X1A Poisoning by cocaine, accidental (unintentional), initial encounter; Z20.822 Contact with and (suspected) exposure to COVID-19; G47.33 Obstructive sleep apnea (adult) (pediatric); I08.1 Rheumatic disorders of both mitral and tricuspid valves; S20.219A Contusion of unspecified front wall of thorax, initial encounter; F32.A Depression, unspecified; M19.90 Unspecified osteoarthritis, unspecified site; K42.9 Umbilical hernia without obstruction or gangrene; Z91.19 Patient's noncompliance with other medical treatment and regimen; R77.8 Other specified abnormalities of plasma proteins; I87.8 Other specified disorders of veins; R29.6 Repeated falls; F17.210 Nicotine dependence, cigarettes, uncomplicated; Z71.6 Tobacco abuse counseling; Z79.899 Other long term (current) drug therapy; Z87.19 Personal history of other diseases of the digestive system; Z96.60 Presence of unspecified orthopedic joint implant; Z87.39 Personal history of other diseases of the musculoskeletal system and connective tissue; Z98.890 Other specified postprocedural states; Z71.3 Dietary counseling and surveillance
CPT/HCPCS: 36415; 36600; 70450; 71045; 71046; 71275; 80048; 80053; 80061; 80306; 81003; 82803; 82805; 83036; 83605; 83735; 83880; 84145; 84443; 84484; 85025; 85610; 85730; 87635; 93005; 93306; 94640; 94660; 94760; 95816; 99285

== ENCOUNTER → 2021-07-24 | Outpatient (CLI) | payer BC | END | disposition home or self-care (01) | LOC: LABPAT 16:06 | PROVIDERS: ATTEND Internal Medicine Clinical Cardiac Electrophysiology | DX: Z01.812 Encounter for preprocedural laboratory examination (principal); Z20.822 Contact with and (suspected) exposure to COVID-19; I47.1 Supraventricular tachycardia ==

== ENCOUNTER 2021-07-27 13:34 | Day surgery (SDC) | payer BC ==
[2021-07-26 08:44] VITALS: BMI 38.5
[~2021-07-27 13:34] MED LIST: LACTATED RINGERS 1,000 ML IV SCH; SODIUM CHLORIDE 0.9% 1,000 ML IV SCH
[2021-07-27] MEDS ORDERED: SODIUM CHLORIDE 0.9% 1,000 ML IV ONE (13:41)
[2021-07-27] MEDS ORDERED: LIDOCAINE 1% INJ 10MG/ML (20 ML MDV) ONE ×2 (17:07→17:14)
[2021-07-27] MEDS ORDERED: SUCCINYLCHOLINE CHLORIDE 100 MG/5 ML SYR IV ONE (17:14)
[2021-07-27] MEDS ORDERED: PROPOFOL 10 MG/ML 20 ML VIAL IV ONE (17:14)
[2021-07-27] MEDS ORDERED: PHENYLEPHRINE-0.9% NACL SYG 1,000 MCG/10 ML SYRINGE ONE (17:14)
[2021-07-27] MEDS ORDERED: ROCURONIUM 10 MG/ML (5 ML VIAL) IV ONE (17:14)
[2021-07-27] MEDS ORDERED: ePHEDrine 50 MG/ML 1 ML AMP ONE (17:14)
[2021-07-27] MEDS ORDERED: GLYCOPYRROLATE 0.2 MG/ML 2 ML VIAL ONE (17:14)
[2021-07-27] MEDS ORDERED: fentaNYL (PF) 50 MCG/ML 2 ML AMP ONE (17:14)
[2021-07-27] MEDS ORDERED: NEOSTIGMINE 1 MG/ML 10 ML VIAL ONE (17:14)
--- NOTE | 2021-07-27 17:27 | P.HPCAR ---
History of Present Illness This is Dr. Dickerson dictating an H/P on this patient The patient was interviewed and examined IMPRESSION / ASSESSMENT: Typical atrial flutter with RVR Morbid obesity BMI 43 Obstructive sleep apnea PLAN: Proceed with EP study and atrial flutter ablation HPI Patient denies any chest discomfort no dizziness lightheadedness no shortness of breath at rest Shortness of breath on exertion ROS: No fever chills or rigors, no cough, phlegm or expectoration, no nausea, vomiting or diarrhea, no hematuria, dysuria, no musculoskeletal complaints, no strokes or seizures, no skin lesions. EXAMINATION: Afebrile 98.2F pulse rate in the 80s at rest respirations 16 no orthopnea PND Blood pressure 131 and 74 mmHg Pulse ox 92% on room air Heart sounds are irregular Breath sounds are clear no rhonchi no crackles Abdomen soft with central obesity No lower extremity edema REVIEW OF LABS, ECG & MEDICAL DATA Last year TSH was 1.73 Physical Exam Vitals: Vital Signs Temp Pulse Resp BP Pulse Ox 07/27/21 13:58 98.2 F 88 16 131/74 92 L Intake and Output 07/27/21 07/27/21 07/27/21 06:59 14:59 22:59 Intake Total 100 0 Balance 100 0 Intake: IV 100 0 Other: Weight 143.8 kg Past Medical History Past Medical History: Atrial Fibrillation, Asthma, Sleep Apnea/CPAP/BIPAP Additional Past Medical History / Comment(s): See Dr Dickerson H&P, History of Any Multi-Drug Resistant Organisms: None Reported Past Surgical History: Hernia Repair, Joint Replacement, Orthopedic Surgery Additional Past Surgical History / Comment(s): rt hip replacement, rt foot ORIF Past Anesthesia/Blood Transfusion Reactions: Motion Sickness Smoking Status: Former smoker - Past Family History Mother Family Medical History: Cancer Father Family Medical History: Cancer Physical Examination Vital Signs Temp Pulse Resp BP Pulse Ox 07/27/21 13:58 98.2 F 88 16 131/74 92 L Intake and Output 07/27/21 07/27/21 07/27/21 06:59 14:59 22:59 Intake Total 100 0 Balance 100 0 Intake: IV 100 0 Other: Weight 143.8 kg Results Current Medications Generic Name Dose Route Start Last Admin Trade Name Freq PRN Reason Stop Dose Admin Sodium Chloride 1,000 mls @ 50 mls/hr 07/27/21 05:57 Saline 0.9% IV 08/26/21 05:58 .Q20H OBI Lactated Ringer's 1,000 mls @ 20 mls/hr 07/27/21 05:57 Lactated Ringers IV 08/26/21 05:58 .Q24H OBI Intake and Output 07/27/21 07/27/21 07/27/21 06:59 14:59 22:59 Intake Total 100 0 Balance 100 0 Intake: IV 100 0 Other: Weight 143.8 kg Patient Weight 07/28/21 06:59 Weight 143.8 kg
[2021-07-27] MEDS ORDERED: LIDOCAINE 1% INJ 10MG/ML (20 ML MDV) SQ ONE (17:47)
[2021-07-27] MEDS ORDERED: HEPARIN SODIUM (1,000 UNIT/ML) 1,000 UNIT in SODIUM CHLORIDE 0.9% 1,000 ML IRRIGATION ONE (18:01)
[2021-07-27] MEDS ORDERED: ACETAMINOPHEN TAB 325 MG TAB PO PRN (18:53)
[2021-07-27] MEDS ORDERED: ACETAMINOPHEN IV (For NPO) 1,000 MG in EMPTY BAG 1 BAG IVPB ONE (18:53)
--- NOTE | 2021-07-27 19:05 | P.PRLE ---
RE: Meir Abraham Dear Brook Brand underwent an atrial flutter ablation successfully However he also has atrial fibrillation and he underwent electrical cardioversion for that He will continue ELIQUIS and will continue his antihypertensive therapy and hopefully he loses weight progressively and uses CPAP mask Thank you for entrusting me with the care of the patient Warm regards Sincerely Carmine Dickerson
--- NOTE | 2021-07-27 19:11 | P.EPPROC ---
- EP Procedure Note Electrophysiology Procedure Note: Diagnosis Typical atrial flutter with RVR Hypertension, morbid obesity, obstructive sleep apnea Current smoker Result Electrical cardioversion for atrial fibrillation Successful atrial flutter with bidirectional block with differential pacing No left atrial appendage thrombus Small posterior pericardial effusion along the left ventricle Yee response to His bundle pacing Procedures performed Electrical cardioversion for atrial fibrillation Diagnostic EP study with attempted arrhythmia induction, CS pacing and recording Intracardiac echo, 3-D mapping and radiofrequency ablation for typical atrial flutter Details Patient was brought to the EP lab in a fasting state. Written informed consent was obtained prior to the procedure. General anesthesia provided Venous access obtained in the right and left femoral veins Diagnostic mapping and ablation cath was placed in the high right atrium, His bundle area, right ventricle, coronary sinus Intracardiac echo catheter and mapping and ablation catheter along with a long sheath, deflectable Patient was in atrial fibrillation of the start of the study Intracardiac echo revealed normal LV function but with a small posterior pericardial effusion behind the left ventricle No intracardiac mass or thrombus, no left atrial appendage thrombus 3-D reprogramming mapping was performed Intracardiac echo mapping was performed RF ablation was performed. Linear ablation along the cavo tricuspid isthmus Complete line of block made and differential pacing performed Bidirectional block confirmed Isthmus conduction times greater than 180-190 ms Sheaths removed. Vascade hemostasis achieved Patient tolerated the procedure well without any acute complications
[2021-07-27] MEDS: SYMBICORT 80-4.5 MCG INHALER INHALATION SCH (19:24)
[2021-07-27] MEDS ORDERED: HYDROmorphone 0.2 MG/1 ML SYRINGE IVP ONE (19:40)
[2021-07-27] MEDS ORDERED: ACETAMINOPHEN IV (For NPO) 1,000 MG/100 ML VIAL IVPB ONE (19:40)
[2021-07-27] MEDS: METOPROLOL TARTRATE 50 MG TAB PO SCH (21:25)
[2021-07-27] MEDS: APIXABAN 5 MG TAB PO SCH (21:25)
[2021-07-28] MEDS: IPRATROPIUM 0.5 MG/2.5 ML NEBU INHALATION SCH ×2 (07:23→11:41)
[2021-07-28] MEDS: SYMBICORT 80-4.5 MCG INHALER INHALATION SCH ×2 (07:24→07:29)
[2021-07-28 07:44] LABS: African American GFR (CKD) 65 (>60 ml/min/1.73 sqM); Anion Gap 5 mmol/L; Blood Urea Nitrogen 31 mg/dL (9-20); Calcium 8.2 mg/dL (8.4-10.2); Carbon Dioxide 28 mmol/L (22-30); Chloride 101 mmol/L (98-107); Glucose 101 mg/dL (74-99); Non-African American GFR(CKD) 57 (>60 ml/min/1.73 sqM); Potassium 4.6 mmol/L (3.5-5.1); Sodium 134 mmol/L (137-145)
[2021-07-28] MEDS: METOPROLOL TARTRATE 50 MG TAB PO SCH (07:49)
[2021-07-28] MEDS: APIXABAN 5 MG TAB PO SCH (07:49)
[2021-07-28 08:06] VITALS: BP 144/66; PULSE 63; RESP 20; TEMP 99.4
[2021-07-28] MEDS ORDERED: NICOTINE 21MG/24HR PATCH TRANSDERM SCH (09:00)
[2021-07-28] MEDS ORDERED: buPROPion XL 300 MG TAB.ER.24H PO SCH (09:00)
[2021-07-28] MEDS ORDERED: FUROSEMIDE 40 MG TAB PO SCH (09:00)
[2021-07-28] MEDS ORDERED: ASPIRIN 81 MG PO SCH (09:00)
== END 2021-07-28 12:31 | disposition home or self-care (01) ==
LOC: CATHEP 13:34 → 6NMEDSUR 18:46 → CATHEP 07-28 12:31
PROVIDERS: ATTEND Internal Medicine Clinical Cardiac Electrophysiology
DX: I48.3 Typical atrial flutter (principal); E66.01 Morbid (severe) obesity due to excess calories; Z68.41 Body mass index [BMI] 40.0-44.9, adult; G47.33 Obstructive sleep apnea (adult) (pediatric); Z79.01 Long term (current) use of anticoagulants; Z79.899 Other long term (current) drug therapy; Z79.82 Long term (current) use of aspirin; Z79.51 Long term (current) use of inhaled steroids
CPT/HCPCS: 94640; 94760; 92960; 93653; 80048; C1894; C1769 ×2; C1760; C1766; C1730; C1759; C1732; S4990; J2710; J2001; J3010; J1644; J0131; J2370; J0330; J2704; J1170

== ENCOUNTER 2022-04-05 13:55 | Inpatient (IN) | payer BC, OTHER ==
[2022-04-05] MEDS ORDERED: IPRATROPIUM-ALBUTEROL 3 ML NEB INHALATION STA (14:10)
[2022-04-05] MEDS ORDERED: methylPREDNISolone SOD SUCCI 125 MG/2 ML VIAL IV STA (14:11)
--- NOTE | 2022-04-05 14:14 | ED ---
General Adult HPI - General Chief complaint: Shortness of Breath Stated complaint: TONEY Time Seen by Provider: 04/05/22 14:03 Source: patient, RN notes reviewed Mode of arrival: wheelchair Limitations: no limitations - History of Present Illness Initial comments: Patient is a pleasant 56-year-old male presents emergency department with concerns with difficulty breathing. Onset of symptoms was the past couple of weeks. Patient is having problems with his oxygen machine and has a temporary 1 which she does not feel is working as well. Occasional cough. Patient has had diffuse swelling including legs and abdomen. No fevers. Patient has been havi ng some mild chest discomfort recently. Patient does have history of COPD. Unclear but believes he does have a history of CHF. - Related Data Home Medications Medication Instructions Recorded Confirmed Fluticasone/Umeclidin/Vilanter 1 inhalation INHALATION QAM 07/26/21 07/27/21 [Trelegy Ellipta 100-62.5-25] Ibuprofen 200 mg PO DIRECTED PRN 07/26/21 07/27/21 Magnesium 250 mg PO DAILY 07/26/21 07/27/21 Melatonin 5 - 15 mg PO HS 07/26/21 07/27/21 Metoprolol Tartrate [Lopressor] 100 mg PO BID 07/26/21 07/27/21 Multivitamins, Thera [Multivitamin 1 tab PO DAILY 07/26/21 07/27/21 (formulary)] buPROPion HCL [Wellbutrin XL] 300 mg PO DAILY 07/26/21 07/27/21 Previous Rx's Medication Instructions Recorded Apixaban [Eliquis] 5 mg PO BID #60 tab 05/13/21 Aspirin 81 mg PO DAILY tab 05/13/21 Furosemide [Lasix] 40 mg PO DAILY #30 tab 05/13/21 Nicotine 21Mg/24Hr Patch [Habitrol] 1 patch TRANSDERM DAILY #14 patch 05/13/21 Allergies Allergy/AdvReac Type Severity Reaction Status Date / Time No Known Allergies Allergy Verified 07/27/21 13:48 Review of Systems ROS Statement: Those systems with pertinent positive or pertinent negative responses have been documented in the HPI. ROS Other: All systems not noted in ROS Statement are negative. Constitutional: Denies: fever Eyes: Denies: eye pain ENT: Denies: ear pain Respiratory: Reports: as per HPI, cough, dyspnea Cardiovascular: Reports: chest pain Endocrine: Reports: fatigue Gastrointestinal: Denies: abdominal pain Genitourinary: Denies: dysuria Musculoskeletal: Denies: back pain Skin: Denies: rash Neurological: Denies: weakness Past Medical History Past Medical History: Atrial Fibrillation, Asthma, Sleep Apnea/CPAP/BIPAP History of Any Multi-Drug Resistant Organisms: None Reported Past Surgical History: Hernia Repair, Joint Replacement, Orthopedic Surgery Additional Past Surgical History / Comment(s): rt hip, rt foot Past Anesthesia/Blood Transfusion Reactions: No Reported Reaction Past Psychological History: Depression Smoking Status: Current every day smoker General Exam Limitations: no limitations General appearance: alert Head exam: Present: normocephalic Eye exam: Present: normal appearance Neck exam: Present: normal inspection Respiratory exam: Present: respiratory distress, accessory muscle use, decreased breath sounds Cardiovascular Exam: Present: tachycardia, irregular rhythm GI/Abdominal exam: Present: soft. Absent: tenderness Extremities exam: Present: pedal edema. Absent: calf tenderness Neurological exam: Present: alert Psychiatric exam: Present: normal affect, normal mood Skin exam: Present: cyanosis Course Vital Signs 04/05/22 04/05/22 04/05/22 13:57 14:17 14:24 Temperature 97.9 F Pulse Rate 60 78 88 Respiratory 26 H Rate Blood Pressure 187/136 O2 Sat by Pulse 60 L Oximetry 04/05/22 15:56 Temperature Pulse Rate 154 H Respiratory 20 Rate Blood Pressure 127/98 O2 Sat by Pulse 96 Oximetry EKG Findings - EKG Comments: EKG Findings:: A. fib with RVR, rate 158. QRS 106. QT 296. QTc 3-4. Normal axis. Incomplete right bundle-branch block. Normal QRS. No acute ST change. Medical Decision Making - Medical Decision Making Patient reevaluated and updated. Case was discussed with Dr. Peres who did admit the patient covering for Dr. Stern. - Lab Data Result diagrams: 04/05/22 15:18 04/05/22 15:18 Lab Results 04/05/22 04/05/22 04/05/22 Range/Units 15:18 15:18 15:18 WBC 7.7 (3.8-10.6) k/uL RBC 5.28 (4.30-5.90) m/uL Hgb 15.3 (13.0-17.5) gm/dL Hct 47.7 (39.0-53.0) % MCV 90.4 (80.0-100.0) fL MCH 29.0 (25.0-35.0) pg MCHC 32.1 (31.0-37.0) g/dL RDW 15.6 H (11.5-15.5) % Plt Count 136 L (150-450) k/uL MPV 10.4 Neutrophils % 76 % Lymphocytes % 9 % Monocytes % 9 % Eosinophils % 2 % Basophils % 1 % Neutrophils # 5.9 (1.3-7.7) k/uL Lymphocytes # 0.7 L (1.0-4.8) k/uL Monocytes # 0.7 (0-1.0) k/uL Eosinophils # 0.1 (0-0.7) k/uL Basophils # 0.1 (0-0.2) k/uL Hypochromasia Moderate Poikilocytosis Slight PT 12.4 H (9.0-12.0) sec INR 1.2 H (<1.2) APTT 20.1 L (22.0-30.0) sec Sodium 143 (137-145) mmol/L Potassium 4.4 (3.5-5.1) mmol/L Chloride 97 L (98-107) mmol/L Carbon Dioxide 40 H (22-30) mmol/L Anion Gap 6 mmol/L BUN 34 H (9-20) mg/dL Creatinine 1.22 (0.66-1.25) mg/dL Est GFR (CKD-EPI)AfAm 75 (>60 ml/min/1.73 sqM) Est GFR (CKD-EPI)NonAf 65 (>60 ml/min/1.73 sqM) Glucose 126 H (74-99) mg/dL Plasma Lactic Acid Ankur (0.7-2.0) mmol/L Calcium 8.2 L (8.4-10.2) mg/dL Magnesium 2.1 (1.6-2.3) mg/dL Total Bilirubin 0.7 (0.2-1.3) mg/dL AST 30 (17-59) U/L ALT 22 (4-49) U/L Alkaline Phosphatase 89 (38-126) U/L Troponin I (0.000-0.034) ng/mL Total Protein 6.3 (6.3-8.2) g/dL Albumin 3.6 (3.5-5.0) g/dL Coronavirus (PCR) (Not Detectd) Influenza Type A RNA (Not Detectd) Influenza Type B (PCR) (Not Detectd) 04/05/22 04/05/22 04/05/22 Range/Units 15:18 15:18 Unknown WBC (3.8-10.6) k/uL RBC (4.30-5.90) m/uL Hgb (13.0-17.5) gm/dL Hct (39.0-53.0) % MCV (80.0-100.0) fL MCH (25.0-35.0) pg MCHC (31.0-37.0) g/dL RDW (11.5-15.5) % Plt Count (150-450) k/uL MPV Neutrophils % % Lymphocytes % % Monocytes % % Eosinophils % % Basophils % % Neutrophils # (1.3-7.7) k/uL Lymphocytes # (1.0-4.8) k/uL Monocytes # (0-1.0) k/uL Eosinophils # (0-0.7) k/uL Basophils # (0-0.2) k/uL Hypochromasia Poikilocytosis PT (9.0-12.0) sec INR (<1.2) APTT (22.0-30.0) sec Sodium (137-145) mmol/L Potassium (3.5-5.1) mmol/L Chloride (98-107) mmol/L Carbon Dioxide (22-30) mmol/L Anion Gap mmol/L BUN (9-20) mg/dL Creatinine (0.66-1.25) mg/dL Est GFR (CKD-EPI)AfAm (>60 ml/min/1.73 sqM) Est GFR (CKD-EPI)NonAf (>60 ml/min/1.73 sqM) Glucose (74-99) mg/dL Plasma Lactic Acid Ankur 1.5 (0.7-2.0) mmol/L Calcium (8.4-10.2) mg/dL Magnesium (1.6-2.3) mg/dL Total Bilirubin (0.2-1.3) mg/dL AST (17-59) U/L ALT (4-49) U/L Alkaline Phosphatase (38-126) U/L Troponin I 0.035 H* (0.000-0.034) ng/mL Total Protein (6.3-8.2) g/dL Albumin (3.5-5.0) g/dL Coronavirus (PCR) (Not Detectd) Influenza Type A RNA Not Detected (Not Detectd) Influenza Type B (PCR) Not Detected (Not Detectd) 04/05/22 Range/Units Unknown WBC (3.8-10.6) k/uL RBC (4.30-5.90) m/uL Hgb (13.0-17.5) gm/dL Hct (39.0-53.0) % MCV (80.0-100.0) fL MCH (25.0-35.0) pg MCHC (31.0-37.0) g/dL RDW (11.5-15.5) % Plt Count (150-450) k/uL MPV Neutrophils % % Lymphocytes % % Monocytes % % Eosinophils % % Basophils % % Neutrophils # (1.3-7.7) k/uL Lymphocytes # (1.0-4.8) k/uL Monocytes # (0-1.0) k/uL Eosinophils # (0-0.7) k/uL Basophils # (0-0.2) k/uL Hypochromasia Poikilocytosis PT (9.0-12.0) sec INR (<1.2) APTT (22.0-30.0) sec Sodium (137-145) mmol/L Potassium (3.5-5.1) mmol/L Chloride (98-107) mmol/L Carbon Dioxide (22-30) mmol/L Anion Gap mmol/L BUN (9-20) mg/dL Creatinine (0.66-1.25) mg/dL Est GFR (CKD-EPI)AfAm (>60 ml/min/1.73 sqM) Est GFR (CKD-EPI)NonAf (>60 ml/min/1.73 sqM) Glucose (74-99) mg/dL Plasma Lactic Acid Ankur (0.7-2.0) mmol/L Calcium (8.4-10.2) mg/dL Magnesium (1.6-2.3) mg/dL Total Bilirubin (0.2-1.3) mg/dL AST (17-59) U/L ALT (4-49) U/L Alkaline Phosphatase (38-126) U/L Troponin I (0.000-0.034) ng/mL Total Protein (6.3-8.2) g/dL Albumin (3.5-5.0) g/dL Coronavirus (PCR) Not Detected (Not Detectd) Influenza Type A RNA (Not Detectd) Influenza Type B (PCR) (Not Detectd) - Radiology Data Radiology results: image reviewed (Cardiomegaly and CHF) Critical Care Time Critical Care Time: Yes Total Critical Care Time: 32 Disposition Clinical Impression: Atrial fibrillation with RVR, CHF (congestive heart failure), COPD (chronic obstructive pulmonary disease) Disposition: ADMITTED IP TO THIS HOSP Is patient prescribed a controlled substance at d/c from ED?: No Referrals: Parish Iverson MD [Primary Care Provider] - 1-2 days Time of Disposition: 17:24
[2022-04-05] MEDS ORDERED: DILTIAZEM DRIP BOLUS FROM BAG 1 MG SOLN IV ONE (15:06)
[2022-04-05 15:35] LABS: Albumin 3.6 g/dL (3.5-5.0); Calcium 8.2 mg/dL (8.4-10.2); Magnesium 2.1 mg/dL (1.6-2.3); Potassium 4.4 mmol/L (3.5-5.1); Total Bilirubin 0.7 mg/dL (0.2-1.3); Total Protein 6.3 g/dL (6.3-8.2)
[2022-04-05 15:41] LABS: Basophils # (A) 0.1 k/uL (0-0.2); Basophils % (A) 1 %; Eosinophils # (A) 0.1 k/uL (0-0.7); Eosinophils % (A) 2 %; HCT 47.7 % (39.0-53.0); HGB 15.3 gm/dL (13.0-17.5); Hypochromasia Moderate; Lymphocytes # (A) 0.7 k/uL (1.0-4.8); Lymphocytes % (A) 9 %; MCHC 32.1 g/dL (31.0-37.0); MCV 90.4 fL (80.0-100.0); Mean Platelet Volume 10.4; Monocytes # (A) 0.7 k/uL (0-1.0); Monocytes % (A) 9 %; Neutrophils # (A) 5.9 k/uL (1.3-7.7); Neutrophils % (A) 76 %; Platelet Count 136 k/uL (150-450); Poikilocytosis Slight; RBC 5.28 m/uL (4.30-5.90); RDW 15.6 % (11.5-15.5); WBC 7.7 k/uL (3.8-10.6)
--- NOTE | 2022-04-05 15:48 | XR ---
EXAMINATION TYPE: XR chest 1V portable DATE OF EXAM: 04/05/2022 COMPARISON: Chest x-ray May 10, 2021 HISTORY: Dyspnea. TECHNIQUE: Single portable frontal view of the chest is obtained. FINDINGS: Cardiomegaly redemonstrated with new mild to moderate central vascular congestion. No pl eural effusion or pneumothorax seen. The osseous structures remain intact. IMPRESSION: Findings consistent with CHF exacerbation as there is cardiomegaly with new mild/moderat e central vascular congestion present.
[2022-04-05 15:51] LABS: INR 1.2 (<1.2); Partial Thromboplastin Time 20.1 sec (22.0-30.0); Prothrombin Time 12.4 sec (9.0-12.0)
[2022-04-05] MEDS: DILTIAZEM 125 MG in SODIUM CHLORIDE 0.9% 100 ML IV SCH (15:59)
[2022-04-05] MEDS ORDERED: MORPHINE SULFATE 4 MG/ML SYRINGE IVP STA (17:25)
[2022-04-05] MEDS ORDERED: IPRATROPIUM-ALBUTEROL 3 ML NEB INHALATION PRN (17:26)
[2022-04-05] MEDS ORDERED: NALOXONE 0.4 MG/ML 1 ML VIAL IVP PRN (17:26)
[2022-04-05] MEDS ORDERED: ASPIRIN 325 MG TAB PO STA (17:26)
[2022-04-05] MEDS: IPRATROPIUM-ALBUTEROL 3 ML NEB INHALATION SCH (19:51)
[2022-04-05 20:07] LABS: ABG Base Excess 9.2 mmol/L; ABG HCO3 36 mmol/L (21-25); ABG Oxygen Saturation 91.1 % (94-97); ABG PH 7.25 (7.35-7.45); ABG PO2 70 mmHg (83-108); ABG TCO2 39 mmol/L (19-24); Allen Test Performed? Yes
[2022-04-05 20:14] LABS: ABG PCO2 82 mmHg (35-45)
[2022-04-05] MEDS: methylPREDNISolone SOD SUCCI 125 MG/2 ML VIAL IV SCH (20:41)
[2022-04-05] MEDS: ENALAPRILAT 1.25 MG/ML 1 ML VIAL IVP SCH ×2 (20:41→20:48)
[2022-04-05] MEDS: NITROGLYCERIN OINT 1 INCH/GM PACKET TOPICAL SCH ×2 (20:41→20:42)
[2022-04-05] MEDS: FUROSEMIDE 10 MG/ML 4 ML VIAL IV SCH (20:41)
[2022-04-05 22:53] LABS: ABG Base Excess 10.1 mmol/L; ABG HCO3 37 mmol/L (21-25); ABG Oxygen Saturation 89.6 % (94-97); ABG PH 7.25 (7.35-7.45); ABG PO2 65 mmHg (83-108); ABG TCO2 40 mmol/L (19-24); Allen Test Performed? Yes
[2022-04-05 22:56] LABS: ABG PCO2 84 mmHg (35-45)
[2022-04-05 23:43] LABS: Glucose,Whole Blood 157 mg/dL (70-110)
[2022-04-06] MEDS ORDERED: NOREPINEPHRIN 4 MG-0.9% NS PMX 4 MG/250 ML ML IV ONE (00:05)
[2022-04-06] MEDS ORDERED: NALOXONE 0.4 MG/ML 1 ML VIAL IV PRN (00:08)
[2022-04-06] MEDS: NOREPINEPHRINE 4 MG in SODIUM CHLORIDE 0.9% 250 ML IV SCH ×3 (00:11→19:49)
--- NOTE | 2022-04-06 00:36 | XR ---
EXAMINATION TYPE: XR chest 1V portable DATE OF EXAM: 04/05/2022 COMPARISON: Yesterday HISTORY: Respiratory failure TECHNIQUE: FINDINGS: The endotracheal tube is 4 cm from the yulia. There is an enlarged heart. There is pulmona ry vascular congestion. There is blunting of the costophrenic angles. Pulmonary interstitial edema. T here are chest leads. IMPRESSION: Pulmonary edema and pleural fluid increased slightly compared to yesterday and consistent with congestive heart failure.
[2022-04-06 00:38] LABS: ABG Base Excess 9.2 mmol/L; ABG HCO3 36 mmol/L (21-25); ABG Oxygen Saturation 91.3 % (94-97); ABG PH 7.27 (7.35-7.45); ABG PO2 67 mmHg (83-108); ABG TCO2 39 mmol/L (19-24)
[2022-04-06 00:42] LABS: ABG PCO2 80 mmHg (35-45); Allen Test Performed? no
[2022-04-06] MEDS ORDERED: CISATRACURIUM 2 MG/ML 5 ML VIAL IV ONE (01:43)
[2022-04-06] MEDS ORDERED: FUROSEMIDE 10 MG/ML 10 ML VIAL IV STA (01:44)
[2022-04-06] MEDS: methylPREDNISolone SOD SUCCI 125 MG/2 ML VIAL IV SCH ×5 (02:01→23:48)
[2022-04-06] MEDS: HYDROmorphone 1 MG/ML 1 ML SYRINGE IVP PRN ×2 (02:10→20:56)
--- NOTE | 2022-04-06 02:27 | HP ---
HISTORY AND PHYSICAL CHIEF COMPLAINT: Shortness of breath. HISTORY OF PRESENT ILLNESS: This is a 56-year-old gentleman with a past medical history of multiple medical problems including atrial fibrillation, asthma, being followed by [facility] in the outpatient complaining of increasing shortness of breath. The patient was also seen multiple consultants including Dr. Rahman as well as Dr. Gregory. The patient is having atrial fibrillation, fast ventricular rate. There is no history of any fever, rigors, or chills at this time. Chest x-ray is being awaited. PAST MEDICAL HISTORY: Reviewed include atrial fibrillation, asthma. HOME MEDICATIONS: Again reviewed include bupropion, rest of the medication also noted, doses also noted. ALLERGIES: None. FAMILY HISTORY: No history of heart disease or strokes in the family. SOCIAL HISTORY: Continued smoking. REVIEW OF SYSTEMS: A 14-point review is negative as mentioned earlier. PHYSICAL EXAMINATION: VITAL SIGNS: Pulse is 60, blood pressure 187/136, respirations 26. HEENT: Conjunctivae normal. NECK: No jugular venous distention. CARDIOVASCULAR: S1, S2 regular. RESPIRATIONS: Diminished at the bases, scattered rhonchi and crackles. ABDOMEN: Soft, obese. LEGS: Bilateral leg edema, cellulitis present. NERVOUS SYSTEM: No focal deficits. SKIN: No ulcer, rash. JOINTS: No active deforming arthropathy. LABS: Pending. ASSESSMENT: 1. Shortness of breath, possible acute asthma, acute exacerbation. 2. Atrial fibrillation with fast ventricular rate. 3. Hypertension. 4. History of sleep apnea. 5. Cellulitis of both legs. RECOMMENDATIONS AND DISCUSSION: This 56-year-old gentleman presented with multiple complex medical issues, we will monitor the patient closely. Continue with current medications, will initiate bronchodilators, steroids, and also Cardizem drip, cardiology, pulmonology consultations, antibiotics or leg cellulitis cultures. Resume the home medications once they are confirmed. Overall prognosis guarded because of multiple complex medical issues. Further recommendations to follow. MMODL / IJN: [id number] /
[2022-04-06] MEDS: FUROSEMIDE 10 MG/ML 4 ML VIAL IV SCH ×3 (04:58→20:04)
[2022-04-06 05:11] LABS: ABG Base Excess 12.3 mmol/L; ABG HCO3 37 mmol/L (21-25); ABG Oxygen Saturation 90.4 % (94-97); ABG PCO2 62 mmHg (35-45); ABG PH 7.39 (7.35-7.45); ABG TCO2 39 mmol/L (19-24)
[2022-04-06 05:13] LABS: ABG PO2 58 mmHg (83-108); Allen Test Performed? no
[2022-04-06 05:49] LABS: Basophils % (A) 0 %; Eosinophils % (A) 1 %; HCT 45.7 % (39.0-53.0); HGB 14.5 gm/dL (13.0-17.5); Hypochromasia Marked; Lymphocytes # (A) 0.4 k/uL (1.0-4.8); Lymphocytes % (A) 4 %; MCH 28.8 pg (25.0-35.0); MCHC 31.6 g/dL (31.0-37.0); MCV 91.1 fL (80.0-100.0); Mean Platelet Volume 7.9; Monocytes # (A) 0.2 k/uL (0-1.0); Monocytes % (A) 2 %; Neutrophils # (A) 8.5 k/uL (1.3-7.7); Neutrophils % (A) 93 %; RBC 5.02 m/uL (4.30-5.90); RDW 15.2 % (11.5-15.5); WBC 9.1 k/uL (3.8-10.6)
[2022-04-06 05:57] LABS: Platelet Count 294 k/uL (150-450)
[2022-04-06 06:06] LABS: Albumin 3.3 g/dL (3.5-5.0); Calcium 8.1 mg/dL (8.4-10.2); Potassium 4.9 mmol/L (3.5-5.1); Total Bilirubin 0.9 mg/dL (0.2-1.3); Total Protein 5.8 g/dL (6.3-8.2)
[2022-04-06] MEDS: ENALAPRILAT 1.25 MG/ML 1 ML VIAL IVP SCH ×4 (06:47→23:42)
[2022-04-06] MEDS: IPRATROPIUM-ALBUTEROL 3 ML NEB INHALATION SCH ×5 (07:35→23:08)
--- NOTE | 2022-04-06 08:07 | XR ---
EXAMINATION TYPE: XR chest 1V portable DATE OF EXAM: 04/06/2022 COMPARISON: 04/06/2022 INDICATION: Tube placement TECHNIQUE: Single frontal view of the chest is obtained. FINDINGS: The heart size is enlarged. The pulmonary vasculature is prominent. Bibasilar infiltrates are present. Mild infiltrate remaining in the right upper lung field. Findings are worsening over the interval. Endotracheal tube tip is above the yulia. Nasogastric tube transverses the thorax. IMPRESSION: 1. Clinical correlation recommended for worsening congestive heart failure
[2022-04-06] MEDS: CHLORHEXIDINE GLUCONATE 15 ML CUP MUCOUS MEM SCH ×2 (08:57→20:04)
[2022-04-06] MEDS: NITROGLYCERIN OINT 1 INCH/GM PACKET TOPICAL SCH ×4 (08:58→20:27)
[2022-04-06] MEDS ORDERED: ASPIRIN 325 MG TAB PO SCH (09:00)
--- NOTE | 2022-04-06 10:53 | P.CNPUL ---
History of Present Illness Consult date: 04/06/22 Requesting physician: Rashaad Peres Reason for consult: hypoxemia (Mechanical ventilator/critical care management), abnormal CXR/CT Chief complaint: Shortness of breath History of present illness: This is a 56-year-old male patient of positive Dr. Iverson as his primary care provider. He has a history of atrial fibrillation with previous cardioversion and ablation maintained on Eliquis, diastolic congestive heart failure, chronic obstructive pulmonary disease, chronic hypercapnic respiratory failure, obstructive sleep apnea maintained on BiPAP 20/16 along with oxygen at 2 L/m per nasal cannula. He follows with Dr. Gregory in our office. He also has a history of chronic tobacco dependence and morbid obesity with a BMI of 50. He presented to the emergency room yesterday with complaints of increasing shortness of breath over the past 1-2 weeks. He felt his home oxygen was possibly not working. It is a temporary 1. He is using. He had diffuse swelling including his legs and abdomen. Occasional cough. Some mild chest discomfort. Chest x-ray shows evidence of fluid volume overload bilateral infiltrates and congestive heart failure. He developed worsening shortness of breath and hypoxemia required intubation mechanical ventilator support late last night. He is seen today in consultation in the ICU. Current settings are assist-control mode with a rate of 26, tidal volume 450, FiO2 50% and a PEEP of 5. P O2 58, pCO2 62 pH 7.39. He is sedated on propofol 50 mcg/kg/m. 0.9 normal saline at 20 miles per hour. Requiring norepinephrine at 3.3 mcg/m. He is also on a Cardizem drip at 5 mg per hour for A. fib with RVR. Tube feedings will be initiated. White count 9.1. Hemoglobin 14.5. Platelets 294. Sodium 140. Potassium 4.9. Bicarb 35. BUN 37. Creatinine 1.13. Glucose 192. Influenza screen negative. COVID-19 screen negative. He's been initiated on Lasix 40 mg IV every 8 hours, IV Solu-Medrol, bronchodilators. Review of Systems ROS unobtainable: due to endotracheal tube Past Medical History Past Medical History: Atrial Fibrillation, Asthma, Sleep Apnea/CPAP/BIPAP History of Any Multi-Drug Resistant Organisms: None Reported Past Surgical History: Hernia Repair, Joint Replacement, Orthopedic Surgery Additional Past Surgical History / Comment(s): rt hip, rt foot Past Anesthesia/Blood Transfusion Reactions: No Reported Reaction Past Psychological History: Depression Smoking Status: Current every day smoker Past Alcohol Use History: None Reported Medications and Allergies Home Medications Medication Instructions Recorded Confirmed Type Apixaban [Eliquis] 5 mg PO BID #60 tab 05/13/21 04/05/22 Rx Furosemide [Lasix] 40 mg PO DAILY #30 tab 05/13/21 04/05/22 Rx Melatonin 5 mg PO HS 07/26/21 04/05/22 History Acetaminophen Tab [Tylenol Tab] 1,000 mg PO BID 04/05/22 04/05/22 History Albuterol Sulfate [Proair Hfa] 2 puff INHALATION RT-Q4H PRN 04/05/22 04/05/22 History Aspirin EC [Ecotrin Low Dose] 81 mg PO DAILY 04/05/22 04/05/22 History Budesonide/Glycopyr/Formoterol 1 puff INHALATION RT-BID 04/05/22 04/05/22 History [Breztri Aerosphere Inhaler] Flaxseed Oil 1200mg 1 cap PO DAILY 04/05/22 04/05/22 History Fluticasone/Vilanterol [Breo 1 puff INHALATION RT-DAILY 04/05/22 04/05/22 History Ellipta 100-25 Mcg Inhaler] Sodium Chloride [Long] 1 spr EA NOSTRIL DAILY PRN 04/05/22 04/05/22 History Sulfamethox-Tmp 800-160Mg [Bactrim 1 tab PO MOWEFR 04/05/22 04/05/22 History DS 800-160 mg] Ubidecarenone [Coenzyme Q10] 200 mg PO DAILY 04/05/22 04/05/22 History carvediloL [Coreg] 12.5 mg PO BID 04/05/22 04/05/22 History dilTIAZem HCL [dilTIAZem HCL 12Hr 120 mg PO BID 04/05/22 04/05/22 History ER] Allergies Allergy/AdvReac Type Severity Reaction Status Date / Time No Known Allergies Allergy Verified 04/05/22 17:43 Physical Exam Vitals: Vital Signs Temp Pulse Pulse Resp BP BP Pulse Ox 04/06/22 07:50 120 H 04/06/22 07:35 122 H 04/06/22 07:17 04/06/22 07:00 113 H 106/81 93 L 04/06/22 06:00 125 H 106/81 94 L 04/06/22 05:00 112 H 94 L 04/06/22 04:00 105 H 94 L 04/06/22 03:05 04/06/22 03:00 128 H 93 L 04/06/22 02:00 128 H 94 L 04/06/22 01:00 105 H 86 L 04/06/22 00:23 04/06/22 00:00 141 H 3 L 138/84 04/05/22 23:42 27 H 92 L 04/05/22 23:19 04/05/22 22:52 04/05/22 22:46 118 H 19 115/80 88 L 04/05/22 20:37 04/05/22 20:00 125 H 60 H 131/76 88 L 04/05/22 19:13 98.4 F 144 H 21 150/70 89 L 04/05/22 18:32 140 H 20 117/87 93 L 04/05/22 15:56 154 H 20 127/98 96 04/05/22 14:24 88 04/05/22 14:17 78 04/05/22 13:57 97.9 F 60 26 H 187/136 60 L FiO2 04/06/22 07:50 04/06/22 07:35 04/06/22 07:17 50 04/06/22 07:00 04/06/22 06:00 04/06/22 05:00 04/06/22 04:00 50 04/06/22 03:05 50 04/06/22 03:00 04/06/22 02:00 04/06/22 01:00 04/06/22 00:23 50 04/06/22 00:00 04/05/22 23:42 04/05/22 23:19 50 04/05/22 22:52 40 04/05/22 22:46 40 04/05/22 20:37 40 04/05/22 20:00 04/05/22 19:13 04/05/22 18:32 04/05/22 15:56 04/05/22 14:24 04/05/22 14:17 04/05/22 13:57 Intake and Output 04/05/22 04/06/22 04/06/22 22:59 06:59 14:59 Intake Total 0 191.470 401.221 Output Total 550 810 810 Balance -550 -618.530 -408.779 Intake: IV 140 0.9% Sodium Chloride 70 Diltiazem 125 mg In 20 Sodium Chloride 0.9% 100 ml @ 5 MG/HR 5 mls/hr IV .Q24H [facility] Rx#:[id number] ceFAZolin 2 gm In Sodium 50 Chloride 0.9% 50 ml @ 100 mls/hr IVPB Q8HR [facility] Rx# :[id number] Intake, IV Titration 191.470 261.221 Amount Norepinephrine 4 mg In 65.995 122.680 Sodium Chloride 0.9% 250 ml @ 0.05 MCG/KG/MIN 27. 651 mls/hr IV .Q9H12M [facility] Rx#:[id number] ceFAZolin 2 gm In Sodium 50 Chloride 0.9% 50 ml @ 100 mls/hr IVPB ONCE ONE Rx# :[id number] propofoL 1,000 mg In 125.475 88.541 Empty Bag 1 bag @ 15 MCG/ KG/MIN 13.064 mls/hr IV . Q7H40M [facility] Rx#:[id number] Oral 0 Output: Gastric Drainage 200 Urine 550 810 610 Other: Voiding Method Indwelling Catheter Indwelling Catheter Weight 166.2 kg ABP, PAP, CO, CI - Last 8 Hours Arterial Blood Pressure 137/70 Arterial Blood Pressure 122/62 Arterial Blood Pressure 142/66 Arterial Blood Pressure 121/64 Arterial Blood Pressure 92/55 GENERAL EXAM: Intubated, sedated 56-year-old male patient, on mechanical ventilator, FiO2 50% and a PEEP of 5, comfortable in no apparent distress. HEAD: Normocephalic. EYES: Normal reaction of pupils, equal size. NOSE: Clear with pink turbinates. THROAT: Oral endotracheal and gastric tube secured in place. No erythema or exudates. NECK: No masses, no JVD. CHEST: No chest wall deformity. LUNGS: Equal air entry with few scattered rhonchi, crackles in the posterior bases. CVS: S1 and S2 normal with no audible murmur, regular rhythm. ABDOMEN: No hepatosplenomegaly, normal bowel sounds, no guarding or rigidity. SPINE: No scoliosis or deformity SKIN: No rashes CENTRAL NERVOUS SYSTEM: No focal deficits, tone is normal in all 4 extremities. EXTREMITIES: There is 1-2+ peripheral edema. No clubbing, no cyanosis. Peripheral pulses are intact. Results - Laboratory Findings CBC and BMP: 04/06/22 05:36 04/06/22 05:36 ABG ABG pH 7.39 (7.35-7.45) 04/06/22 05:10 ABG pCO2 62 mmHg (35-45) H 04/06/22 05:10 ABG pO2 58 mmHg (83-108) L* 04/06/22 05:10 ABG O2 Saturation 90.4 % (94-97) L 04/06/22 05:10 PT/INR, D-dimer PT 12.4 sec (9.0-12.0) H 04/05/22 15:18 INR 1.2 (<1.2) H 04/05/22 15:18 Abnormal lab findings: Abnormal Labs 04/05/22 04/05/22 04/05/22 15:18 15:18 15:18 RDW 15.6 H Plt Count 136 L Neutrophils # Lymphocytes # 0.7 L PT 12.4 H INR 1.2 H APTT 20.1 L ABG pH ABG pCO2 ABG pO2 ABG HCO3 ABG Total CO2 ABG O2 Saturation Chloride 97 L Carbon Dioxide 40 H BUN 34 H Glucose 126 H POC Glucose (mg/dL) Calcium 8.2 L Troponin I Total Protein Albumin 04/05/22 04/05/22 04/05/22 15:18 18:39 20:07 RDW Plt Count Neutrophils # Lymphocytes # PT INR APTT ABG pH 7.25 L ABG pCO2 82 H* ABG pO2 70 L ABG HCO3 36 H ABG Total CO2 39 H ABG O2 Saturation 91.1 L Chloride Carbon Dioxide BUN Glucose POC Glucose (mg/dL) Calcium Troponin I 0.035 H* 0.038 H* Total Protein Albumin 04/05/22 04/05/22 04/05/22 21:09 22:49 23:41 RDW Plt Count Neutrophils # Lymphocytes # PT INR APTT ABG pH 7.25 L ABG pCO2 84 H* ABG pO2 65 L ABG HCO3 37 H ABG Total CO2 40 H ABG O2 Saturation 89.6 L Chloride Carbon Dioxide BUN Glucose POC Glucose (mg/dL) 157 H Calcium Troponin I 0.036 H* Total Protein Albumin 04/06/22 04/06/22 04/06/22 00:40 05:10 05:36 RDW Plt Count Neutrophils # 8.5 H Lymphocytes # 0.4 L PT INR APTT ABG pH 7.27 L ABG pCO2 80 H* 62 H ABG pO2 67 L 58 L* ABG HCO3 36 H 37 H ABG Total CO2 39 H 39 H ABG O2 Saturation 91.3 L 90.4 L Chloride Carbon Dioxide BUN Glucose POC Glucose (mg/dL) Calcium Troponin I Total Protein Albumin 04/06/22 05:36 RDW Plt Count Neutrophils # Lymphocytes # PT INR APTT ABG pH ABG pCO2 ABG pO2 ABG HCO3 ABG Total CO2 ABG O2 Saturation Chloride Carbon Dioxide 35 H BUN 37 H Glucose 192 H POC Glucose (mg/dL) Calcium 8.1 L Troponin I Total Protein 5.8 L Albumin 3.3 L - Diagnostic Findings Chest x-ray: image reviewed Assessment and Plan Assessment: Acute hypoxemic respiratory failure secondary to acute diastolic congestive heart failure, acute exacerbation of chronic obstructive pulmonary disease Acute hypercapnic respiratory failure secondary to above Atrial fibrillation with a rapid ventricular response, currently on a Cardizem drip, anticoagulated with Eliquis Morbid obesity with a BMI of 50 kg per metered squared Obstructive sleep apnea, maintained on BiPAP 20/16 along with 2 L of oxygen Chronic obstructive pulmonary disease, oxygen dependent, FEV1 value 22% of predicted Acute on chronic lower extremity edema secondary to right-sided heart failurecor pulmonale Former smoker Plan: The patient was seen and evaluated Chest x-ray, ABGs and labs reviewed Continue the current vent settings Initiate tube feedings Continue bronchodilators Plan for daily interruption of sedation We will continue to follow and make further recommendations based on his clinical status I have personally seen and examined the patient, performed the documentation and the assessment and plan as written. Number of minutes spent on the visit: 20.
[2022-04-06 12:00] LABS: Glucose,Whole Blood 154 mg/dL (70-110)
--- NOTE | 2022-04-06 13:39 | P.PN ---
Subjective Progress Note Date: 04/06/22 This is a 56-year-old male who was recently admitted with increasing shortness of breath with multiple medical consultations following an was originally on selective unit on BiPAP although became unresponsive requiring mechanical ventilation and intubation and was brought to the ICU and is being closely monitored. Patient was admitted for asthma exacerbation and atrial fibrillation with fast ventricular rate. Patient was started on Cardizem drip recommend cardiology consultation. Patient is continued on Levophed and also Kefzol as patient had possible cellulitis of the lower extremities. Patient is currently intubated and sedated and per nursing staff awaiting family arrival. Chest x- ray this morning shows bibasilar infiltrates are present with mild infiltrate remaining in the right upper lung field with worsening findings recommended for worsening congestive heart failure. Patient is maintained on IV Lasix 40 mg every 8 hours and recommend to continue. Patient also receiving breathing inhalational treatments along with IV steroids. Patient is afebrile. WBC this morning is 9.1 with a hemoglobin of 14.5, sodium 140, potassium 4.9, BUN 37 with a creatinine of 1.13. Covid along with influenza was not detected. Review of systems: Unable to obtain as patient is currently mechanically ventilated and sedated Active Medications Albuterol/Ipratropium (Ipratropium-Albuterol 3 Ml Neb) 3 ml INHALATION RT-Q2H PRN PRN Reason: Shortness Of Breath Or Wheezing Albuterol/Ipratropium (Ipratropium-Albuterol 3 Ml Neb) 3 ml INHALATION RT-Q4H [facility] Last Admin: 04/06/22 10:59 Dose: 3 ml Aspirin (Aspirin 325 Mg Tab) 325 mg PO DAILY [facility] Last Admin: 04/06/22 08:57 Dose: 325 mg Chlorhexidine Gluconate (Chlorhexidine Gluconate 15 Ml Cup) 15 ml MUCOUS MEM BID [facility] Last Admin: 04/06/22 08:57 Dose: 15 ml Enalaprilat (Enalaprilat 1.25 Mg/Ml 1 Ml Vial) 1.25 mg IVP Q6H [facility] Last Admin: 04/06/22 11:14 Dose: Not Given Furosemide (Furosemide 10 Mg/Ml 4 Ml Vial) 40 mg IV Q8HR [facility] Last Admin: 04/06/22 08:57 Dose: 40 mg Hydromorphone HCl (Hydromorphone 1 Mg/Ml 1 Ml Syringe) 1 mg IVP Q2HR PRN PRN Reason: Pain Last Admin: 04/06/22 02:10 Dose: 1 mg Diltiazem HCl 125 mg/ Sodium (Chloride) 125 mls @ 5 mls/hr IV .Q24H [facility] Last Admin: 04/05/22 15:59 Dose: 5 mg/hr, 5 mls/hr Cefazolin Sodium 2 gm/ Sodium (Chloride) 50 mls @ 100 mls/hr IVPB Q8HR [facility]; Protocol Last Admin: 04/06/22 09:12 Dose: 100 mls/hr Propofol 1,000 mg/ IV Solution 100 mls @ 13.064 mls/hr IV .Q7H40M [facility]; Protocol Last Admin: 04/06/22 11:38 Dose: 40 mcg/kg/min, 34.836 mls/hr Norepinephrine Bitartrate 4 mg (/ Sodium Chloride) 254 mls @ 27.651 mls/hr IV .Q9H12M [facility]; Protocol Last Titration: 04/06/22 10:15 Dose: 0.01 mcg/kg/min, 5.53 mls/hr Methylprednisolone Sodium Succinate (Methylprednisolone Sod Succi 125 Mg/2 Ml Vial) 60 mg IV Q6HR [facility] Last Admin: 04/06/22 11:38 Dose: 60 mg Naloxone HCl (Naloxone 0.4 Mg/Ml 1 Ml Vial) 0.2 mg IV Q2M PRN PRN Reason: Opioid Reversal Nitroglycerin (Nitroglycerin Oint 1 Inch/Gm Packet) 1 inch TOPICAL QID [facility] Last Admin: 04/06/22 11:41 Dose: Not Given PHYSICAL EXAMINATION: GENERAL: The patient is intubated and sedated, well-developed, well-nourished, morbidly obese. FiO2 is 50% with a PEEP of 5 HEENT: Pupils are round and equally reacting to light. EOMI. no scleral icterus. No conjunctival pallor. Normocephalic, atraumatic. No pharyngeal erythema. No thyromegaly. CARDIOVASCULAR: S1 and S2 muffled PULMONARY: diminished breath sounds bilaterally with some scattered wheezing and rhonchi with crackles noted . ABDOMEN: soft. Nontender on exam. obese. non-distended, normoactive bowel sounds. No palpable organomegaly. MUSCULOSKELETAL: No joint swelling or deformity. EXTREMITIES: No cyanosis, clubbing, or pedal edema. bilateral lower extremity cellulitis noted NEUROLOGICAL: Unable to completely assess as patient is intubated and sedated SKIN: No rashes. Except for mentioned above Assessment: Shortness of breath, possible acute asthma, acute exacerbation Atrial fibrillation with fast ventricular rate Hypertension History of sleep apnea Cellulitis of bilateral lower extremities GI prophylaxis DVT prophylaxis Full code Plan: Recommend to continue with current medications and management with pulmonary and cardiology following. Patient was initially placed on BiPAP and on the selected unit although found unresponsive and increasing respirations requiring mechanical ventilation. Patient is currently intubated with an FiO2 of 50% and PEEP is 5. Patient is continued on cefazolin and recommend local wound care for the lower extremities were cellulitis. Patient was placed on Cardizem drip for atrial fibrillation with RVR and cardiology will be consulted. Pulmonary fol lowing and monitoring closely. Chest x-ray today with worsening congestive heart failure and is maintained on IV Lasix. Recommend 2-D echo to be ordered. Awaiting family arrival to discuss CODE STATUS and treatment plans moving forward. No family arrival as of yet. Nursing staff attempting to contact. Recommend repeat labs and follow-up chest x-ray. Due to multiple complex medical issues, overall prognosis is guarded. The impression and plan of care has been dictated by Shayna Garcia, nurse practitioner as directed. Dr. Ja MD I have performed a history and examination and MDM of this patient, discussed the same with the dictator, and agree with the dictator's assessment and plan as written ,documented as a scribe. Based on total visit time, I have performed more than 50% of the visit. Any additional findings or plans will be noted. Objective - Vital Signs Vital signs: Vital Signs Temp 98.1 F 04/06/22 08:00 Pulse 121 H 04/06/22 11:13 Resp 26 H 04/06/22 11:00 BP 109/76 04/06/22 11:00 Pulse Ox 87 L 04/06/22 11:00 FiO2 50 04/06/22 10:58 Intake & Output 04/05/22 04/06/22 04/06/22 18:59 06:59 18:59 Intake Total 0 191.470 483.333 Output Total 550 810 810 Balance -550 -618.530 -326.667 Weight 145.15 kg 166.2 kg Intake: IV 140 0.9% Sodium Chloride 70 Diltiazem 125 mg In 20 Sodium Chloride 0.9% 100 ml @ 5 MG/HR 5 mls/hr IV .Q24H [facility] Rx#:[id number] ceFAZolin 2 gm In Sodium 50 Chloride 0.9% 50 ml @ 100 mls/hr IVPB Q8HR [facility] Rx# :[id number] Intake, IV Titration 191.470 343.333 Amount Norepinephrine 4 mg In 65.995 139.547 Sodium Chloride 0.9% 250 ml @ 0.05 MCG/KG/MIN 27. 651 mls/hr IV .Q9H12M [facility] Rx#:[id number] ceFAZolin 2 gm In Sodium 50 Chloride 0.9% 50 ml @ 100 mls/hr IVPB ONCE ONE Rx# :[id number] propofoL 1,000 mg In 125.475 153.786 Empty Bag 1 bag @ 15 MCG/ KG/MIN 13.064 mls/hr IV . Q7H40M [facility] Rx#:[id number] Oral 0 Output: Gastric Drainage 200 Urine 550 810 610 Other: Voiding Method Indwelling Catheter Indwelling Catheter ABP, PAP, CO, CI - Last Documented Arterial Blood Pressure 111/62 - Labs CBC & Chem 7: 04/06/22 05:36 04/06/22 05:36 Labs: Abnormal Lab Results - Last 24 Hours (Table) 04/05/22 04/05/22 04/05/22 Range/Units 15:18 15:18 15:18 RDW 15.6 H (11.5-15.5) % Plt Count 136 L (150-450) k/uL Neutrophils # (1.3-7.7) k/uL Lymphocytes # 0.7 L (1.0-4.8) k/uL PT 12.4 H (9.0-12.0) sec INR 1.2 H (<1.2) APTT 20.1 L (22.0-30.0) sec ABG pH (7.35-7.45) ABG pCO2 (35-45) mmHg ABG pO2 (83-108) mmHg ABG HCO3 (21-25) mmol/L ABG Total CO2 (19-24) mmol/L ABG O2 Saturation (94-97) % Chloride 97 L (98-107) mmol/L Carbon Dioxide 40 H (22-30) mmol/L BUN 34 H (9-20) mg/dL Glucose 126 H (74-99) mg/dL POC Glucose (mg/dL) (70-110) mg/dL Calcium 8.2 L (8.4-10.2) mg/dL Troponin I (0.000-0.034) ng/mL Total Protein (6.3-8.2) g/dL Albumin (3.5-5.0) g/dL 04/05/22 04/05/22 04/05/22 Range/Units 15:18 18:39 20:07 RDW (11.5-15.5) % Plt Count (150-450) k/uL Neutrophils # (1.3-7.7) k/uL Lymphocytes # (1.0-4.8) k/uL PT (9.0-12.0) sec INR (<1.2) APTT (22.0-30.0) sec ABG pH 7.25 L (7.35-7.45) ABG pCO2 82 H* (35-45) mmHg ABG pO2 70 L (83-108) mmHg ABG HCO3 36 H (21-25) mmol/L ABG Total CO2 39 H (19-24) mmol/L ABG O2 Saturation 91.1 L (94-97) % Chloride (98-107) mmol/L Carbon Dioxide (22-30) mmol/L BUN (9-20) mg/dL Glucose (74-99) mg/dL POC Glucose (mg/dL) (70-110) mg/dL Calcium (8.4-10.2) mg/dL Troponin I 0.035 H* 0.038 H* (0.000-0.034) ng/mL Total Protein (6.3-8.2) g/dL Albumin (3.5-5.0) g/dL 04/05/22 04/05/22 04/05/22 Range/Units 21:09 22:49 23:41 RDW (11.5-15.5) % Plt Count (150-450) k/uL Neutrophils # (1.3-7.7) k/uL Lymphocytes # (1.0-4.8) k/uL PT (9.0-12.0) sec INR (<1.2) APTT (22.0-30.0) sec ABG pH 7.25 L (7.35-7.45) ABG pCO2 84 H* (35-45) mmHg ABG pO2 65 L (83-108) mmHg ABG HCO3 37 H (21-25) mmol/L ABG Total CO2 40 H (19-24) mmol/L ABG O2 Saturation 89.6 L (94-97) % Chloride (98-107) mmol/L Carbon Dioxide (22-30) mmol/L BUN (9-20) mg/dL Glucose (74-99) mg/dL POC Glucose (mg/dL) 157 H (70-110) mg/dL Calcium (8.4-10.2) mg/dL Troponin I 0.036 H* (0.000-0.034) ng/mL Total Protein (6.3-8.2) g/dL Albumin (3.5-5.0) g/dL 04/06/22 04/06/22 04/06/22 Range/Units 00:40 05:10 05:36 RDW (11.5-15.5) % Plt Count (150-450) k/uL Neutrophils # 8.5 H (1.3-7.7) k/uL Lymphocytes # 0.4 L (1.0-4.8) k/uL PT (9.0-12.0) sec INR (<1.2) APTT (22.0-30.0) sec ABG pH 7.27 L (7.35-7.45) ABG pCO2 80 H* 62 H (35-45) mmHg ABG pO2 67 L 58 L* (83-108) mmHg ABG HCO3 36 H 37 H (21-25) mmol/L ABG Total CO2 39 H 39 H (19-24) mmol/L ABG O2 Saturation 91.3 L 90.4 L (94-97) % Chloride (98-107) mmol/L Carbon Dioxide (22-30) mmol/L BUN (9-20) mg/dL Glucose (74-99) mg/dL POC Glucose (mg/dL) (70-110) mg/dL Calcium (8.4-10.2) mg/dL Troponin I (0.000-0.034) ng/mL Total Protein (6.3-8.2) g/dL Albumin (3.5-5.0) g/dL 04/06/22 04/06/22 Range/Units 05:36 11:57 RDW (11.5-15.5) % Plt Count (150-450) k/uL Neutrophils # (1.3-7.7) k/uL Lymphocytes # (1.0-4.8) k/uL PT (9.0-12.0) sec INR (<1.2) APTT (22.0-30.0) sec ABG pH (7.35-7.45) ABG pCO2 (35-45) mmHg ABG pO2 (83-108) mmHg ABG HCO3 (21-25) mmol/L ABG Total CO2 (19-24) mmol/L ABG O2 Saturation (94-97) % Chloride (98-107) mmol/L Carbon Dioxide 35 H (22-30) mmol/L BUN 37 H (9-20) mg/dL Glucose 192 H (74-99) mg/dL POC Glucose (mg/dL) 154 H (70-110) mg/dL Calcium 8.1 L (8.4-10.2) mg/dL Troponin I (0.000-0.034) ng/mL Total Protein 5.8 L (6.3-8.2) g/dL Albumin 3.3 L (3.5-5.0) g/dL
[2022-04-06] MEDS ORDERED: AMIODARONE 360 MG in DEXTROSE 5% IN WATER 200 ML IV ONE ×2 (14:05)
[2022-04-06] MEDS ORDERED: DEXTROSE 5% IN WATER 100 ML with AMIODARONE 150 MG IV ONE (14:05)
--- NOTE | 2022-04-06 18:02 | XR ---
EXAMINATION TYPE: XR abdomen 1V DATE OF EXAM: 04/06/2022 COMPARISON: NONE HISTORY: Tube placement TECHNIQUE: Single view FINDINGS: There is nasogastric tube and the tip is in the body of the stomach. IMPRESSION: NG tube is in the stomach.
[2022-04-06] MEDS: DILTIAZEM 125 MG in SODIUM CHLORIDE 0.9% 100 ML IV SCH (19:48)
[2022-04-06] MEDS: APIXABAN 5 MG TAB PO SCH (20:04)
[2022-04-06] MEDS ORDERED: AMIODARONE 450 MG in DEXTROSE 5% IN WATER 250 ML IV SCH ×2 (20:15)
[2022-04-06] MEDS: AMIODARONE 360 MG in DEXTROSE 5% IN WATER 200 ML IV SCH ×2 (20:37)
[2022-04-06 23:46] LABS: Glucose,Whole Blood 177 mg/dL (70-110)
[2022-04-06] MEDS: INSULIN ASPART (NovoLOG) 100 UNIT/ML VIAL SQ SCH (23:48)
[2022-04-07] MEDS: HYDROmorphone 1 MG/ML 1 ML SYRINGE IVP PRN (00:15)
--- NOTE | 2022-04-07 01:30 | CONS ---
CONSULTATION HISTORY OF PRESENT ILLNESS: This is a 56-year-old morbidly obese patient with a known history of COPD, on home oxygen under the care of Dr. Gregory. He also has a known atrial flutter, underwent flutter ablation by Dr. Dickerson in July of this year followed by cardioversion. Since then, he is seeing another civil service worker in the [facility] area. He came into the hospital apparently with increasing shortness of breath and was on [facility]. Apparently, he has been experiencing increasing shortness of breath and progressively got worse. He was admitted to the hospital and placed on a BiPAP. He also has history of chronic tobacco use and morbid obesity with a BMI of more than 45 to 50. He has about a 2-3 week history of progressively worsening shortness of breath with concern his home oxygen was not working. However, after arrival, he was found to be in worsening shortness of breath. There was evidence on the chest x-ray of some bibasilar infiltrates and because of chronic hypoxemia, he was intubated, placed on a mechanical ventilator, and then he went into atrial fibrillation with a rapid ventricular rate. I was asked to see him in this regard. This patient has therefore severe COPD with hypercapnic respiratory failure on the ventilator. He also has atrial fibrillation paroxysmal, underwent cardioversion following a flutter ablation by Dr. Dickerson in July. He is currently on apixaban, Lasix, albuterol inhaler, aspirin and also takes some inhalers in addition to some antibiotics recently. ALLERGIES: None. PHYSICAL EXAMINATION: GENERAL: The patient is on a ventilator. VITAL SIGNS: His blood pressure is about 110/70, pulse rate is 120 to 130 irregular. HEENT: Unremarkable. Fundus was not examined. NECK: Supple. There is JVD of 1 cm. No carotid bruit. HEART: Reveals S1, S2 with tachycardia. Regular rate and rhythm with a short systolic murmur. LUNGS: Reveal ventilator-assisted breath sounds bilaterally. ABDOMEN: Distended. LOWER EXTREMITIES: Reveal diminished pulses. CENTRAL NERVOUS SYSTEM: Assessment was not performed. IMPRESSION: 1. Acute respiratory failure, hypercapnic, intubated on a ventilator. 2. Atrial fibrillation, rapid ventricular rate. 3. Probable chronic diastolic heart failure. 4. Probable pulmonary hypertension. 5. Chronic tobacco abuse. RECOMMENDATIONS: I am recommending that we will place him on amiodarone bolus and drip. Continue Cardizem for now. Obtain echocardiogram. We will discontinue aspirin and resume Eliquis 5 mg b.i.d. and based on clinical course, we will make further recommendations. Overall prognosis remains poor for this morbidly obese patient. MMODL / IJN: [id number] /
[2022-04-07] MEDS: AMIODARONE 360 MG in DEXTROSE 5% IN WATER 200 ML IV SCH ×8 (02:55→20:02)
[2022-04-07] MEDS: NOREPINEPHRINE 4 MG in SODIUM CHLORIDE 0.9% 250 ML IV SCH ×3 (02:55→23:42)
[2022-04-07] MEDS: IPRATROPIUM-ALBUTEROL 3 ML NEB INHALATION SCH ×6 (02:56→23:07)
[2022-04-07] MEDS: DILTIAZEM 125 MG in SODIUM CHLORIDE 0.9% 100 ML IV SCH ×2 (03:53→08:08)
[2022-04-07] MEDS: ENALAPRILAT 1.25 MG/ML 1 ML VIAL IVP SCH (04:31)
[2022-04-07 05:19] LABS: ABG HCO3 34 mmol/L (21-25); ABG Oxygen Saturation 91.2 % (94-97); ABG PCO2 58 mmHg (35-45); ABG PH 7.38 (7.35-7.45); ABG PO2 63 mmHg (83-108); ABG TCO2 36 mmol/L (19-24)
[2022-04-07 05:23] LABS: Basophils # (A) 0.1 k/uL (0-0.2); Basophils % (A) 0 %; Eosinophils # (A) 0.1 k/uL (0-0.7); Eosinophils % (A) 0 %; HCT 47.5 % (39.0-53.0); HGB 14.8 gm/dL (13.0-17.5); Hypochromasia Moderate; Lymphocytes # (A) 0.3 k/uL (1.0-4.8); Lymphocytes % (A) 2 %; MCH 28.4 pg (25.0-35.0); MCHC 31.2 g/dL (31.0-37.0); Mean Platelet Volume 8.1; Monocytes # (A) 0.4 k/uL (0-1.0); Monocytes % (A) 3 %; Neutrophils # (A) 12.4 k/uL (1.3-7.7); Neutrophils % (A) 94 %; Platelet Count 301 k/uL (150-450); RBC 5.22 m/uL (4.30-5.90); RDW 15.2 % (11.5-15.5); WBC 13.2 k/uL (3.8-10.6)
[2022-04-07 05:24] LABS: Allen Test Performed? no
[2022-04-07 05:35] LABS: Glucose,Whole Blood 172 mg/dL (70-110)
[2022-04-07 05:35] LABS: Calcium 8.3 mg/dL (8.4-10.2); Magnesium 2.1 mg/dL (1.6-2.3); Potassium 4.2 mmol/L (3.5-5.1)
[2022-04-07] MEDS: INSULIN ASPART (NovoLOG) 100 UNIT/ML VIAL SQ SCH ×3 (05:36→17:54)
[2022-04-07] MEDS: methylPREDNISolone SOD SUCCI 125 MG/2 ML VIAL IV SCH ×3 (05:37→17:07)
--- NOTE | 2022-04-07 07:00 | XR ---
EXAMINATION TYPE: XR chest 1V portable DATE OF EXAM: 04/07/2022 COMPARISON: 04/06/2022 HISTORY: Tube placement TECHNIQUE: Single frontal view of the chest is obtained. FINDINGS: There is an ET tube 3.5 cm above the yulia. There is an NG tube with stomach The heart remains markedly enlarged. There is mild pulmonary vascular congestion [id number] bi lateral pleural effusions. Overall there is been no significant interval change IMPRESSION: 1 ET tube 3.5 cm above the yulia. 2. No change in the acute cardiopulmonary disease most consistent with CHF.
--- NOTE | 2022-04-07 08:38 | P.PN ---
Subjective Progress Note Date: 04/07/22 Principal diagnosis: [place] I atrial fibrillation/heart failure of unknown etiology This is a pleasant 56-year-old gentleman with a past medical history significant for access for atrial fibrillation who underwent an ablation in the past as well as known chronic obstructive pulmonary disease as well as history of noncompliance who was admitted to the hospital with acute hypoxic respiratory failure secondary to COPD exacerbation and also CHF exacerbation. The CHF is of unknown etiology and currently there is an echo in process to be done. The patient was seen this morning. He continues to be intubated on mechanical ventilation. He continues to be hemodynamically unstable and requiring a small dose of norepinephrine. He continues to be in atrial fibrillation with RVR and currently is on Cardizem IV. He is on Lasix IV as well as has been diuresing very well. When the patient was seen and assessed this morning he continues to be in failure with severe bilateral lower extremities edema and imaged breathing sounds bilaterally and the chest x-ray continues to show findings consistent with CHF. He is on oral anticoagulation Objective - Vital Signs Vital signs: Vital Signs Temp 97.5 F L 04/07/22 08:00 Pulse 137 H 04/07/22 08:00 Resp 26 H 04/07/22 07:00 BP 96/73 04/07/22 08:00 Pulse Ox 91 L 04/07/22 08:00 FiO2 50 04/07/22 08:00 Intake & Output 04/06/22 04/07/22 04/07/22 18:59 06:59 18:59 Intake Total 3983.087 2140.826 317.165 Output Total 1520 1175 95 Balance -320.708 711.826 222.165 Weight 166.2 kg 165.7 kg Intake: IV 538.2 333.3 40 0.9% Sodium Chloride 220 240 40 Amiodarone 360 mg In 133.2 33.3 Dextrose 5% in Water 200 ml @ 1 MG/MIN 33.333 mls/ hr IV .Q6H [facility] Rx#: [id number] Diltiazem 125 mg In 85 10 Sodium Chloride 0.9% 100 ml @ 5 MG/HR 5 mls/hr IV .Q24H [facility] Rx#:[id number] ceFAZolin 2 gm In Sodium 100 50 Chloride 0.9% 50 ml @ 100 mls/hr IVPB Q8HR [facility] Rx# :[id number] Intake, IV Titration 661.092 973.526 217.165 Amount Amiodarone 360 mg In 200 171.665 Dextrose 5% in Water 200 ml @ 1 MG/MIN 33.333 mls/ hr IV .Q6H [facility] Rx#: [id number] Diltiazem 125 mg In 125.000 117.917 45.5 Sodium Chloride 0.9% 100 ml @ 5 MG/HR 5 mls/hr IV .Q24H [facility] Rx#:[id number] Norepinephrine 4 mg In 139.547 233.376 Sodium Chloride 0.9% 250 ml @ 0.05 MCG/KG/MIN 27. 651 mls/hr IV .Q9H12M [facility] Rx#:[id number] ceFAZolin 2 gm In Sodium 50 Chloride 0.9% 50 ml @ 100 mls/hr IVPB ONCE [facility] Rx# :[id number] propofoL 1,000 mg In 346.545 422.233 Empty Bag 1 bag @ 15 MCG/ KG/MIN 13.064 mls/hr IV . Q7H40M [facility] Rx#:[id number] Tube Feeding 280 60 Other 300 Output: Gastric Drainage 200 Urine 1320 1175 95 Other: Voiding Method Indwelling Catheter Indwelling Catheter ABP, PAP, CO, CI - Last Documented Arterial Blood Pressure 114/64 - Constitutional General appearance: Present: no acute distress - Respiratory Respiratory: bilateral: diminished - Cardiovascular Rhythm: irregularly irregular Heart sounds: normal: S1, S2 Abnormal Heart Sounds: Present: systolic murmur - Labs CBC & Chem 7: 04/07/22 05:05 04/07/22 05:05 Labs: Abnormal Lab Results - Last 24 Hours (Table) 04/06/22 04/06/22 04/07/22 Range/Units 11:57 23:44 05:05 WBC 13.2 H (3.8-10.6) k/uL Neutrophils # 12.4 H (1.3-7.7) k/uL Lymphocytes # 0.3 L (1.0-4.8) k/uL ABG pCO2 (35-45) mmHg ABG pO2 (83-108) mmHg ABG HCO3 (21-25) mmol/L ABG Total CO2 (19-24) mmol/L ABG O2 Saturation (94-97) % Chloride (98-107) mmol/L BUN (9-20) mg/dL Creatinine (0.66-1.25) mg/dL Glucose (74-99) mg/dL POC Glucose (mg/dL) 154 H 177 H (70-110) mg/dL Calcium (8.4-10.2) mg/dL 04/07/22 04/07/22 04/07/22 Range/Units 05:05 05:17 05:33 WBC (3.8-10.6) k/uL Neutrophils # (1.3-7.7) k/uL Lymphocytes # (1.0-4.8) k/uL ABG pCO2 58 H (35-45) mmHg ABG pO2 63 L (83-108) mmHg ABG HCO3 34 H (21-25) mmol/L ABG Total CO2 36 H (19-24) mmol/L ABG O2 Saturation 91.2 L (94-97) % Chloride 95 L (98-107) mmol/L BUN 43 H (9-20) mg/dL Creatinine 1.26 H (0.66-1.25) mg/dL Glucose 186 H (74-99) mg/dL POC Glucose (mg/dL) 172 H (70-110) mg/dL Calcium 8.3 L (8.4-10.2) mg/dL Microbiology - Last 24 Hours (Table) 04/06/22 19:50 Sputum Culture - Preliminary Sputum 04/05/22 15:29 Wound Culture - Preliminary Leg - Left 04/05/22 15:18 Blood Culture - Preliminary Blood No Growth after 24 hours 04/05/22 15:18 Blood Culture - Preliminary Blood No Growth after 24 hours Assessment and Plan Assessment: Assessment Acute hypoxic respiratory failure COPD exacerbation Heart failure exacerbation of unknown etiology Atrial fibrillation with RVR Known paroxysmal atrial fibrillation Multiple comorbid conditions Plan Continue the current medical regimen Continue supporting the blood pressure The right to wean the patient from Cardizem Obtain an echo to assess ejection fraction Continue oral anticoagulation Follow-up with the patient
[2022-04-07] MEDS: NITROGLYCERIN OINT 1 INCH/GM PACKET TOPICAL SCH ×4 (09:29→21:37)
[2022-04-07] MEDS: FUROSEMIDE 10 MG/ML 4 ML VIAL IV SCH ×2 (09:29→20:03)
[2022-04-07] MEDS: CHLORHEXIDINE GLUCONATE 15 ML CUP MUCOUS MEM SCH ×2 (09:29→20:03)
[2022-04-07] MEDS: APIXABAN 5 MG TAB PO SCH ×2 (09:30→20:03)
--- NOTE | 2022-04-07 10:59 | P.PN ---
Subjective Progress Note Date: 04/07/22 This is a 56-year-old male patient of positive Dr. Iverson as his primary care provider. He has a history of atrial fibrillation with previous cardioversion and ablation maintained on Eliquis, diastolic congestive heart failure, chronic obstructive pulmonary disease, chronic hypercapnic respiratory failure, obstructive sleep apnea maintained on BiPAP 20/16 along with oxygen at 2 L/m per nasal cannula. He follows with Dr. Gregory in our office. He also has a history of chronic tobacco dependence and morbid obesity with a BMI of 50. He presented to the emergency room yesterday with complaints of increasing shortness of breath over the past 1-2 weeks. He felt his home oxygen was possibly not working. It is a temporary 1. He is using. He had diffuse swelling including his legs and abdomen. Occasional cough. Some mild chest discomfort. Chest x-ray shows evidence of fluid volume overload bilateral infiltrates and congestive heart failure. He developed worsening shortness of breath and hypoxemia required intubation mechanical ventilator support late last night. He is seen today in consultation in the ICU. Current settings are assist-control mode with a rate of 26, tidal volume 450, FiO2 50% and a PEEP of 5. P O2 58, pCO2 62 pH 7.39. He is sedated on propofol 50 mcg/kg/m. 0.9 no rmal saline at 20 miles per hour. Requiring norepinephrine at 3.3 mcg/m. He is also on a Cardizem drip at 5 mg per hour for A. fib with RVR. Tube feedings will be initiated. White count 9.1. Hemoglobin 14.5. Platelets 294. Sodium 140. Potassium 4.9. Bicarb 35. BUN 37. Creatinine 1.13. Glucose 192. Influenza screen negative. COVID-19 screen negative. He's been initiated on Lasix 40 mg IV every 8 hours, IV Solu-Medrol, bronchodilators. The patient is seen today 04/07/2022 in follow-up in the intensive care unit. He remains on mechanical ventilator. Current settings are assist-control mode at a rate of 26, tidal volume 450, FiO2 50% and a PEEP of 5. Morning blood gases reveal a P O2 of 63. PCO2 58, pH 7.38. He has been having issues with atrial fibrillation with rapid ventricular response. He's been initiated on amiodarone drip at 1 mg/m. Cardizem drip at 15 mg per hour. He is requiring norepinephrine at 3 mcg/m. He is sedated on propofol at 40 mcg/kg/m. He has n ormal saline at 20 miles per hour. He is being nourished with vital HPI at 30 ML's per hour with a goal of 40 miles per hour. Chest x-ray reveals acute cardiopulmonary disease most consistent with congestive heart failure. No significant change. Marked cardiomegaly. Blood culture reveals no growth. Wound culture of the left lower extremity pending. Sputum culture pending. White count 13.2. Hemoglobin 14.8. Sodium 139. Potassium 4.2. BUN 43. Creatinine 1.26. Pro-calcitonin pending. Glucose 186. He is continued on DuoNeb inhalations, IV diuretics, IV Solu-Medrol,. Anticoagulated with Eliquis. Remains on antibiotics in the form of cefazolin. Currently in a -1.1 L balance. Current weight 49.5 kg per metered squared. Objective - Vital Signs Vital signs: Vital Signs Temp 97.5 F L 04/07/22 08:00 Pulse 133 H 04/07/22 10:00 Resp 20 04/07/22 10:00 BP 96/73 04/07/22 07:45 Pulse Ox 92 L 04/07/22 10:00 FiO2 30 04/07/22 10:00 Intake & Output 04/06/22 04/07/22 04/07/22 18:59 06:59 18:59 Intake Total 4794.974 0376.826 567.904 Output Total 1520 1175 270 Balance -320.708 711.826 297.904 Weight 166.2 kg 165.7 kg Intake: IV 538.2 333.3 130 0.9% Sodium Chloride 220 240 80 Amiodarone 360 mg In 133.2 33.3 Dextrose 5% in Water 200 ml @ 1 MG/MIN 33.333 mls/ hr IV .Q6H [facility] Rx#: [id number] Diltiazem 125 mg In 85 10 Sodium Chloride 0.9% 100 ml @ 5 MG/HR 5 mls/hr IV .Q24H [facility] Rx#:[id number] ceFAZolin 2 gm In Sodium 100 50 Chloride 0.9% 50 ml @ 100 mls/hr IVPB Q8HR [facility] Rx# :[id number] kefzol 50 Intake, IV Titration 661.092 973.526 347.904 Amount Amiodarone 360 mg In 200 171.665 Dextrose 5% in Water 200 ml @ 1 MG/MIN 33.333 mls/ hr IV .Q6H [facility] Rx#: [id number] Diltiazem 125 mg In 125.000 117.917 45.5 Sodium Chloride 0.9% 100 ml @ 5 MG/HR 5 mls/hr IV .Q24H [facility] Rx#:[id number] Norepinephrine 4 mg In 139.547 233.376 36.682 Sodium Chloride 0.9% 250 ml @ 0.05 MCG/KG/MIN 27. 651 mls/hr IV .Q9H12M [facility] Rx#:[id number] ceFAZolin 2 gm In Sodium 50 Chloride 0.9% 50 ml @ 100 mls/hr IVPB ONCE [facility] Rx# :[id number] propofoL 1,000 mg In 346.545 422.233 94.057 Empty Bag 1 bag @ 15 MCG/ KG/MIN 13.064 mls/hr IV . Q7H40M [facility] Rx#:[id number] Tube Feeding 280 90 Other 300 Output: Gastric Drainage 200 Urine 1320 1175 270 Other: Voiding Method Indwelling Catheter Indwelling Catheter Indwelling Catheter ABP, PAP, CO, CI - Last Documented Arterial Blood Pressure 127/68 - Exam GENERAL EXAM: Intubated, sedated 56-year-old obese male patient, on mechanical ventilator, FiO2 50% and a PEEP of 5, comfortable in no apparent distress. HEAD: Normocephalic. EYES: Normal reaction of pupils, equal size. NOSE: Clear with pink turbinates. THROAT: Oral endotracheal and gastric tube secured in place. No erythema or exudates. NECK: No masses, no JVD. CHEST: No chest wall deformity. LUNGS: Equal air entry with few scattered rhonchi, crackles in the posterior bases. CVS: S1 and S2 normal with no audible murmur, regular rhythm. ABDOMEN: No hepatosplenomegaly, normal bowel sounds, no guarding or rigidity. SPINE: No scoliosis or deformity SKIN: No rashes CENTRAL NERVOUS SYSTEM: No focal deficits, tone is normal in all 4 extremities. EXTREMITIES: There is 1-2+ peripheral edema. No clubbing, no cyanosis. Peripheral pulses are intact. - Labs CBC & Chem 7: 04/07/22 05:05 04/07/22 05:05 Labs: Abnormal Lab Results - Last 24 Hours (Table) 04/06/22 04/06/22 04/07/22 Range/Units 11:57 23:44 05:05 WBC 13.2 H (3.8-10.6) k/uL Neutrophils # 12.4 H (1.3-7.7) k/uL Lymphocytes # 0.3 L (1.0-4.8) k/uL ABG pCO2 (35-45) mmHg ABG pO2 (83-108) mmHg ABG HCO3 (21-25) mmol/L ABG Total CO2 (19-24) mmol/L ABG O2 Saturation (94-97) % Chloride (98-107) mmol/L BUN (9-20) mg/dL Creatinine (0.66-1.25) mg/dL Glucose (74-99) mg/dL POC Glucose (mg/dL) 154 H 177 H (70-110) mg/dL Calcium (8.4-10.2) mg/dL 04/07/22 04/07/22 04/07/22 Range/Units 05:05 05:17 05:33 WBC (3.8-10.6) k/uL Neutrophils # (1.3-7.7) k/uL Lymphocytes # (1.0-4.8) k/uL ABG pCO2 58 H (35-45) mmHg ABG pO2 63 L (83-108) mmHg ABG HCO3 34 H (21-25) mmol/L ABG Total CO2 36 H (19-24) mmol/L ABG O2 Saturation 91.2 L (94-97) % Chloride 95 L (98-107) mmol/L BUN 43 H (9-20) mg/dL Creatinine 1.26 H (0.66-1.25) mg/dL Glucose 186 H (74-99) mg/dL POC Glucose (mg/dL) 172 H (70-110) mg/dL Calcium 8.3 L (8.4-10.2) mg/dL Microbiology - Last 24 Hours (Table) 04/06/22 19:50 Gram Stain - Preliminary Sputum Sputum Culture - Preliminary 04/05/22 15:29 Wound Culture - Preliminary Leg - Left 04/05/22 15:18 Blood Culture - Preliminary Blood No Growth after 24 hours 04/05/22 15:18 Blood Culture - Preliminary Blood No Growth after 24 hours Assessment and Plan Assessment: Acute hypoxemic respiratory failure secondary to acute diastolic congestive heart failure, acute exacerbation of chronic obstructive pulmonary disease Acute hypercapnic respiratory failure secondary to above Atrial fibrillation with a rapid ventricular response, currently on a Cardizem drip, amiodarone drip, anticoagulated with Eliquis Morbid obesity with a BMI of 50 kg per metered squared Obstructive sleep apnea, maintained on BiPAP 20/ along with 2 L of oxygen Chronic obstructive pulmonary disease, oxygen dependent, FEV1 value 22% of predicted Acute on chronic lower extremity edema secondary to right-sided heart failurecor pulmonale Former smoker Plan: The patient was seen and evaluated Chest x-ray, ABGs and labs reviewed Continue the current vent settings Continue tube feedings and titrate to goal Continue bronchodilators, IV Solu-Medrol Remains on cefazolin, pro-Charles pending, cultures pending Continue diuretics Rate control per cardiology We will continue to follow I have personally seen and examined the patient, performed the documentation and the assessment and plan as written. Number of minutes spent on the visit: 15.
[2022-04-07 11:40] LABS: Glucose,Whole Blood 183 mg/dL (70-110)
[2022-04-07 12:12] LABS: Glucose,Whole Blood 157 mg/dL (70-110)
--- NOTE | 2022-04-07 16:12 | CA ---
Transthoracic Echo Report Name: Meir Abraham Age: 56 Gender: M : 1965 Exam Date: 04/06/2022 13:22 Exam Location: [place] [facility] Ht (in): 72 Wt (lb): 366 Ordering Physician: Rashaad Peres MD Attending/Referring Phys: Business Process Expert Renetta Cruz RDCS Procedure CPT: Indications: chf Cardiac Hx: Technical Quality: Fair Contrast 1: Total Dose (mL): Contrast 2: Total Dose (mL): MEASUREMENTS (Male / Female) Normal Values 2D ECHO LV Diastolic Diameter PLAX 4.8 cm 4.2 - 5.9 / 3.9 - 5.3 cm LV Systolic Diameter PLAX 3.4 cm IVS Diastolic Thickness 2.1 cm 0.6 - 1.0 / 0.6 - 0.9 cm LVPW Diastolic Thickness 2.3 cm 0.6 - 1.0 / 0.6 - 0.9 cm LV Relative Wall Thickness 0.9 RV Internal Dim ED PLAX 3.5 cm LA Systolic Diameter LX 5.8 cm 3.0 - 4.0 / 2.7 - 3.8 cm M-MODE Aortic Root Diameter MM 4.3 cm LA Systolic Diameter MM 5.3 cm LA Ao Ratio MM 1.2 AV Cusp Separation MM 2.7 cm DOPPLER TR Peak Velocity 235.2 cm/s TR Peak Gradient 22.1 mmHg Right Ventricular Systolic Press 26.5 mmHg FINDINGS Left Ventricle Left ventricular ejection fraction is estimated at 50-55%. Severely increased left ventricular wall thickness. Right Ventricle Moderate right ventricular dilatation. Right ventricular systolic pressure within normal limits. Right Atrium Normal right atrial size. Left Atrium Severely increased left atrial diameter. Mitral Valve Structurally normal mitral valve. Mild mitral regurgitation. Aortic Valve Trileaflet aortic valve. Tricuspid Valve Structurally normal tricuspid valve. Pulmonic Valve Structurally normal pulmonic valve. Pericardium Small pericardial effusion. Aorta Normal size aortic root and proximal ascending aorta. CONCLUSIONS Technically very difficult study for interpretation Normal left ventricular systolic function. At least moderate LVH Severe left atrial dilation Previewed by: Dr. Aron Lua MD (Electronically Signed) Final Date: 07 April 2022 16:11
[2022-04-07 17:54] LABS: Glucose,Whole Blood 158 mg/dL (70-110)
[2022-04-08] MEDS: methylPREDNISolone SOD SUCCI 125 MG/2 ML VIAL IV SCH ×5 (00:05→23:30)
[2022-04-08 00:08] LABS: Glucose,Whole Blood 168 mg/dL (70-110)
[2022-04-08] MEDS: INSULIN ASPART (NovoLOG) 100 UNIT/ML VIAL SQ SCH ×5 (00:15→23:30)
[2022-04-08] MEDS: AMIODARONE 360 MG in DEXTROSE 5% IN WATER 200 ML IV SCH ×4 (02:35→02:36)
[2022-04-08] MEDS: IPRATROPIUM-ALBUTEROL 3 ML NEB INHALATION SCH ×6 (03:19→23:26)
[2022-04-08 05:01] LABS: Basophils % (A) 0 %; Eosinophils % (A) 0 %; HCT 47.5 % (39.0-53.0); HGB 14.6 gm/dL (13.0-17.5); Hypochromasia Moderate; Lymphocytes # (A) 0.2 k/uL (1.0-4.8); Lymphocytes % (A) 2 %; MCH 27.9 pg (25.0-35.0); MCHC 30.7 g/dL (31.0-37.0); Mean Platelet Volume 8.3; Monocytes # (A) 0.4 k/uL (0-1.0); Monocytes % (A) 4 %; Neutrophils # (A) 11.4 k/uL (1.3-7.7); Neutrophils % (A) 94 %; Platelet Count 215 k/uL (150-450); RBC 5.22 m/uL (4.30-5.90); RDW 14.8 % (11.5-15.5); WBC 12.1 k/uL (3.8-10.6)
[2022-04-08 05:11] LABS: Calcium 8.3 mg/dL (8.4-10.2); Potassium 4.6 mmol/L (3.5-5.1)
[2022-04-08 05:15] LABS: ABG Base Excess 8.4 mmol/L; ABG HCO3 34 mmol/L (21-25); ABG Oxygen Saturation 89.9 % (94-97); ABG PCO2 61 mmHg (35-45); ABG PH 7.35 (7.35-7.45); ABG PO2 62 mmHg (83-108); ABG TCO2 36 mmol/L (19-24)
[2022-04-08 05:17] LABS: Allen Test Performed? no
--- NOTE | 2022-04-08 07:01 | XR ---
EXAMINATION TYPE: XR chest 1V portable DATE OF EXAM: 04/08/2022 COMPARISON: 04/07/2022 HISTORY: ET tube placement TECHNIQUE: Single frontal view of the chest is obtained. FINDINGS: ET tube is 5 cm above the yulia. There is an NG tube within the stomach. There are hazy opacities obscuring both lung bases consistent with a combination of pleural fluid and possible atelectasis. There is been no significant interval change since the prior study. The pulmonary vasculature appears mildly congested and the heart is enlarged. IMPRESSION: Overall no significant interval change. ET tube is 5 cm above the yulia.
[2022-04-08] MEDS: NOREPINEPHRINE 4 MG in SODIUM CHLORIDE 0.9% 250 ML IV SCH ×2 (08:10→16:46)
[2022-04-08] MEDS: FUROSEMIDE 10 MG/ML 4 ML VIAL IV SCH ×2 (10:05→20:37)
[2022-04-08] MEDS: APIXABAN 5 MG TAB PO SCH ×2 (10:05→20:37)
[2022-04-08] MEDS: CHLORHEXIDINE GLUCONATE 15 ML CUP MUCOUS MEM SCH ×2 (10:05→20:37)
[2022-04-08] MEDS: NITROGLYCERIN OINT 1 INCH/GM PACKET TOPICAL SCH ×4 (10:05→21:35)
--- NOTE | 2022-04-08 10:11 | P.PN ---
Subjective Progress Note Date: 04/08/22 Principal diagnosis: [place] I atrial fibrillation/heart failure of unknown etiology This is a pleasant 56-year-old gentleman with a past medical history significant for access for atrial fibrillation who underwent an ablation in the past as well as known chronic obstructive pulmonary disease as well as history of noncompliance who was admitted to the hospital with acute hypoxic respiratory failure secondary to COPD exacerbation and also CHF exacerbation. The CHF is of unknown etiology and currently there is an echo in process to be done. The patient was seen this morning. He continues to be intubated on mechanical ventilation. He continues to be hemodynamically unstable and requiring a small dose of norepinephrine. He continues to be in atrial fibrillation with RVR and currently is on Cardizem IV. He is on Lasix IV as well as has been diuresing very well. When the patient was seen and assessed this morning he continues to be in failure with severe bilateral lower extremities edema and imaged breathing sounds bilaterally and the chest x-ray continues to show findings consistent with CHF. He is on oral anticoagulation April 08 The patient was seen this morning. He continues to be intubated on mechanical ventilation. He is hemodynamically stable. The atrial fibrillation has been under control IV amiodarone as well as Cardizem IV. I'm going to switch to amiodarone by mouth and try to wean her from Cardizem IV. Beside that he continues to be on Lasix IV and has been diuresing very well. When he was seen and evaluated this morning he continues to be hypervolemic with severe bilateral lower extremities edema and diminished breathing sounds bilaterally. Beside that he is on oral anticoagulation for the atrial fibrillation Objective - Vital Signs Vital signs: Vital Signs Temp 98.2 F 04/08/22 04:00 Pulse 97 04/08/22 07:46 Resp 26 H 04/08/22 07:00 BP 96/73 04/07/22 22:00 Pulse Ox 89 L 04/08/22 07:00 FiO2 50 04/08/22 07:24 Intake & Output 04/07/22 04/08/22 04/08/22 18:59 06:59 18:59 Intake Total 8921.620 6045.314 40 Output Total 1015 810 110 Balance 540.110 670.314 -70 Weight 169.5 kg Intake: IV 340 240 0.9% Sodium Chloride 240 240 kefzol 100 Intake, IV Titration 805.110 760.314 Amount Amiodarone 360 mg In 371.665 385.554 Dextrose 5% in Water 200 ml @ 1 MG/MIN 33.333 mls/ hr IV .Q6H [facility] Rx#: [id number] Diltiazem 125 mg In 45.5 Sodium Chloride 0.9% 100 ml @ 5 MG/HR 5 mls/hr IV .Q24H [facility] Rx#:[id number] Norepinephrine 4 mg In 36.682 Sodium Chloride 0.9% 250 ml @ 0.05 MCG/KG/MIN 27. 651 mls/hr IV .Q9H12M [facility] Rx#:[id number] propofoL 1,000 mg In 351.263 374.760 Empty Bag 1 bag @ 15 MCG/ KG/MIN 13.064 mls/hr IV . Q7H40M [facility] Rx#:[id number] Tube Feeding 410 480 40 Output: Urine 1015 810 60 Oral Regurgitation 50 Other: Voiding Method Indwelling Catheter Indwelling Catheter ABP, PAP, CO, CI - Last Documented Arterial Blood Pressure 126/72 - Constitutional General appearance: Present: no acute distress - Respiratory Respiratory: bilateral: diminished - Cardiovascular Rhythm: irregularly irregular Heart sounds: normal: S1, S2 Abnormal Heart Sounds: Present: systolic murmur - Labs CBC & Chem 7: 04/08/22 04:50 04/08/22 04:50 Labs: Abnormal Lab Results - Last 24 Hours (Table) 04/07/22 04/07/22 04/07/22 Range/Units 11:38 12:10 17:53 WBC (3.8-10.6) k/uL MCHC (31.0-37.0) g/dL Neutrophils # (1.3-7.7) k/uL Lymphocytes # (1.0-4.8) k/uL ABG pCO2 (35-45) mmHg ABG pO2 (83-108) mmHg ABG HCO3 (21-25) mmol/L ABG Total CO2 (19-24) mmol/L ABG O2 Saturation (94-97) % Chloride (98-107) mmol/L Carbon Dioxide (22-30) mmol/L BUN (9-20) mg/dL Creatinine (0.66-1.25) mg/dL Glucose (74-99) mg/dL POC Glucose (mg/dL) 183 H 157 H 158 H (70-110) mg/dL Calcium (8.4-10.2) mg/dL 04/08/22 04/08/22 04/08/22 Range/Units 00:06 04:50 04:50 WBC 12.1 H (3.8-10.6) k/uL MCHC 30.7 L (31.0-37.0) g/dL Neutrophils # 11.4 H (1.3-7.7) k/uL Lymphocytes # 0.2 L (1.0-4.8) k/uL ABG pCO2 (35-45) mmHg ABG pO2 (83-108) mmHg ABG HCO3 (21-25) mmol/L ABG Total CO2 (19-24) mmol/L ABG O2 Saturation (94-97) % Chloride 94 L (98-107) mmol/L Carbon Dioxide 31 H (22-30) mmol/L BUN 60 H (9-20) mg/dL Creatinine 1.74 H (0.66-1.25) mg/dL Glucose 175 H (74-99) mg/dL POC Glucose (mg/dL) 168 H (70-110) mg/dL Calcium 8.3 L (8.4-10.2) mg/dL 04/08/22 Range/Units 05:14 WBC (3.8-10.6) k/uL MCHC (31.0-37.0) g/dL Neutrophils # (1.3-7.7) k/uL Lymphocytes # (1.0-4.8) k/uL ABG pCO2 61 H (35-45) mmHg ABG pO2 62 L (83-108) mmHg ABG HCO3 34 H (21-25) mmol/L ABG Total CO2 36 H (19-24) mmol/L ABG O2 Saturation 89.9 L (94-97) % Chloride (98-107) mmol/L Carbon Dioxide (22-30) mmol/L BUN (9-20) mg/dL Creatinine (0.66-1.25) mg/dL Glucose (74-99) mg/dL POC Glucose (mg/dL) (70-110) mg/dL Calcium (8.4-10.2) mg/dL Microbiology - Last 24 Hours (Table) 04/05/22 15:29 Gram Stain - Preliminary Leg - Left Wound Culture - Preliminary Gram Neg Bacilli Presumptive MRSA 04/05/22 15:18 Blood Culture - Preliminary Blood No Growth after 48 hours 04/05/22 15:18 Blood Culture - Preliminary Blood No Growth after 48 hours 04/06/22 19:50 Gram Stain - Preliminary Sputum Sputum Culture - Preliminary Assessment and Plan Assessment: Assessment Acute hypoxic respiratory failure COPD exacerbation Heart failure exacerbation of unknown etiology Atrial fibrillation with RVR Known paroxysmal atrial fibrillation Multiple comorbid conditions Plan Continue the current medical regimen DC amiodarone IV and switch to amiodarone by mouth Try to wean the patient from Cardizem IV Continue oral anticoagulation Continue Lasix IV Follow-up with the patient
[2022-04-08] MEDS: AMIODARONE 200 MG TAB PO SCH ×2 (10:20→20:37)
[2022-04-08 11:18] LABS: Glucose,Whole Blood 162 mg/dL (70-110)
--- NOTE | 2022-04-08 11:48 | P.PN ---
Subjective Progress Note Date: 04/08/22 Principal diagnosis: Respiratory failure. This is a 56-year-old male patient of positive Dr. Iverson as his primary care provider. He has a history of atrial fibrillation with previous cardioversion and ablation maintained on Eliquis, diastolic congestive heart failure, chronic obstructive pulmonary disease, chronic hypercapnic respiratory failure, obstructive sleep apnea maintained on BiPAP 20/16 along with oxygen at 2 L/m per nasal cannula. He follows with Dr. Gregory in our office. He also has a history of chronic tobacco dependence and morbid obesity with a BMI of 50. He presented to the emergency room yesterday with complaints of increasing shortness of breath over the past 1-2 weeks. He felt his home oxygen was possibly not working. It is a temporary 1. He is using. He had diffuse swelling including his legs and abdomen. Occasional cough. Some mild chest discomfort. Chest x-ray shows evidence of fluid volume overload bilateral infiltrates and congestive heart failure. He developed worsening shortness of breath and hypoxemia required intubation mechanical ventilator support late last night. He is seen today in consultation in the ICU. Current settings are assist-control mode with a rate of 26, tidal volume 450, FiO2 50% and a PEEP of 5. P O2 58, pCO2 62 pH 7.39. He is sedated on propofol 50 mcg/kg/m. 0.9 normal saline at 20 miles per hour. Requiring norepinephrine at 3.3 mcg/m. He is also on a Cardizem drip at 5 mg per hour for A. fib with RVR. Tube feedings will be initiated. White count 9.1. Hemoglobin 14.5. Platelets 294. Sodium 140. Potassium 4.9. Bicarb 35. BUN 37. Creatinine 1.13. Glucose 192. Influenza screen negative. COVID-19 screen negative. He's been initiated on Lasix 40 mg IV every 8 hours, IV Solu-Medrol, bronchodilators. The patient is seen today 04/07/2022 in follow-up in the intensive care unit. He remains on mechanical ventilator. Current settings are assist-control mode at a rate of 26, tidal volume 450, FiO2 50% and a PEEP of 5. Morning blood gases reveal a P O2 of 63. PCO2 58, pH 7.38. He has been having issues with atrial fibrillation with rapid ventricular response. He's been initiated on amiodarone drip at 1 mg/m. Cardizem drip at 15 mg per hour. He is requiring norepinephrine at 3 mcg/m. He is sedated on propofol at 40 mcg/kg/m. He has normal saline at 20 miles per hour. He is being nourished with vital HPI at 30 ML's per hour with a goal of 40 miles per hour. Chest x-ray reveals acute cardiopulmonary disease most consistent with congestive heart failure. No si gnificant change. Marked cardiomegaly. Blood culture reveals no growth. Wound culture of the left lower extremity pending. Sputum culture pending. White count 13.2. Hemoglobin 14.8. Sodium 139. Potassium 4.2. BUN 43. Creatinine 1.26. Pro-calcitonin pending. Glucose 186. He is continued on DuoNeb inhalations, IV diuretics, IV Solu-Medrol,. Anticoagulated with Eliquis. Remains on antibiotics in the form of cefazolin. Currently in a -1.1 L balance. Current weight 49.5 kg per metered squared. Progress note dated 04/08/2022. The patient is seen today in the intensive care unit, room 264. He remains on the mechanical ventilator. The patient is too unstable at this point for we aning. He remains on both Cardizem, and amiodarone. Ventilator settings include the volume assist control, rate 26, tidal volume 450, FiO2 50%, and PEEP of 5. Blood gases show pO2 of 62, pCO2 of 61, and a pH of 7.35. The patient is on propofol at 40 mcg/kg/m, normal saline at 20 mL an hour, Cardizem 15 mg an hour, and amiodarone at 1 mg/m. The patient's also getting vital high protein at 40 mL an hour, which is goal. White count 12.1, hemoglobin 14.6, hematocrit 47.5, and the count 215,000. Sodium 137, potassium 4.6, chlorides 94, CO2 31, anion gap 12, BUN 60, creatinine 1.1. Calcium is 8.3. Chest x-ray shows diffuse bilateral patchy opacities, with atelectasis, and pleural effusions. The small wound on the left leg showing evidence of gram-negative bacilli, and presumptive MRSA. ID will be consulted. Objective - Vital Signs Vital signs: Vital Signs Temp 98.1 F 04/08/22 08:00 Pulse 111 H 04/08/22 11:00 Resp 26 H 04/08/22 11:00 BP 96/73 04/07/22 22:00 Pulse Ox 89 L 04/08/22 11:00 FiO2 50 04/08/22 11:09 Intake & Output 04/07/22 04/08/22 04/08/22 18:59 06:59 18:59 Intake Total 6507.968 0203.314 573.9 Output Total 1015 810 310 Balance 540.110 670.314 263.9 Weight 169.5 kg Intake: IV 340 240 213.9 0.9% Sodium Chloride 240 240 60 Amiodarone 360 mg In 99.9 Dextrose 5% in Water 200 ml @ 1 MG/MIN 33.333 mls/ hr IV .Q6H [facility] Rx#: [id number] Diltiazem 125 mg In 45 Sodium Chloride 0.9% 100 ml @ 5 MG/HR 5 mls/hr IV .Q24H [facility] Rx#:[id number] kefzol 100 pressure bag 9 Intake, IV Titration 805.110 760.314 100 Amount Amiodarone 360 mg In 371.665 385.554 Dextrose 5% in Water 200 ml @ 1 MG/MIN 33.333 mls/ hr IV .Q6H [facility] Rx#: [id number] Diltiazem 125 mg In 45.5 Sodium Chloride 0.9% 100 ml @ 5 MG/HR 5 mls/hr IV .Q24H [facility] Rx#:[id number] Norepinephrine 4 mg In 36.682 Sodium Chloride 0.9% 250 ml @ 0.05 MCG/KG/MIN 27. 651 mls/hr IV .Q9H12M [facility] Rx#:[id number] propofoL 1,000 mg In 351.263 374.760 100 Empty Bag 1 bag @ 15 MCG/ KG/MIN 13.064 mls/hr IV . Q7H40M [facility] Rx#:[id number] Tube Feeding 410 480 160 Other 100 Output: Urine 1015 810 260 Oral Regurgitation 50 Other: Voiding Method Indwelling Catheter Indwelling Catheter Indwelling Catheter ABP, PAP, CO, CI - Last Documented Arterial Blood Pressure 129/70 - Exam No acute distress, sedated, with an orally placed endotracheal tube, and NG tube.. HEENT examination is grossly unremarkable. Neck supple. Full range of motion. No adenopathy thyromegaly or neck vein distention. Cardiovascular examination reveals an irregular rhythm and rate. S1-S2 normal. No S3 or S4. No discernible murmur noted. Heart rate is 111 bpm. Lungs reveal bilateral coarse rhonchi, and crackles. Breath sounds equal bilaterally. No wheezes. Saturations are in the low 90s. Abdomen soft, with bowel sounds. No masses or tenderness. Extremities are intact. Small left leg wound noted. No cyanosis or clubbing. Mild to moderate edema appreciated. Skin is without rash or lesion. Neurologic examination cannot be adequately assessed at this time. - Labs CBC & Chem 7: 04/08/22 04:50 04/08/22 04:50 Labs: Abnormal Lab Results - Last 24 Hours (Table) 04/07/22 04/07/22 04/07/22 Range/Units 11:38 12:10 17:53 WBC (3.8-10.6) k/uL MCHC (31.0-37.0) g/dL Neutrophils # (1.3-7.7) k/uL Lymphocytes # (1.0-4.8) k/uL ABG pCO2 (35-45) mmHg ABG pO2 (83-108) mmHg ABG HCO3 (21-25) mmol/L ABG Total CO2 (19-24) mmol/L ABG O2 Saturation (94-97) % Chloride (98-107) mmol/L Carbon Dioxide (22-30) mmol/L BUN (9-20) mg/dL Creatinine (0.66-1.25) mg/dL Glucose (74-99) mg/dL POC Glucose (mg/dL) 183 H 157 H 158 H (70-110) mg/dL Calcium (8.4-10.2) mg/dL 04/08/22 04/08/22 04/08/22 Range/Units 00:06 04:50 04:50 WBC 12.1 H (3.8-10.6) k/uL MCHC 30.7 L (31.0-37.0) g/dL Neutrophils # 11.4 H (1.3-7.7) k/uL Lymphocytes # 0.2 L (1.0-4.8) k/uL ABG pCO2 (35-45) mmHg ABG pO2 (83-108) mmHg ABG HCO3 (21-25) mmol/L ABG Total CO2 (19-24) mmol/L ABG O2 Saturation (94-97) % Chloride 94 L (98-107) mmol/L Carbon Dioxide 31 H (22-30) mmol/L BUN 60 H (9-20) mg/dL Creatinine 1.74 H (0.66-1.25) mg/dL Glucose 175 H (74-99) mg/dL POC Glucose (mg/dL) 168 H (70-110) mg/dL Calcium 8.3 L (8.4-10.2) mg/dL 04/08/22 04/08/22 Range/Units 05:14 11:16 WBC (3.8-10.6) k/uL MCHC (31.0-37.0) g/dL Neutrophils # (1.3-7.7) k/uL Lymphocytes # (1.0-4.8) k/uL ABG pCO2 61 H (35-45) mmHg ABG pO2 62 L (83-108) mmHg ABG HCO3 34 H (21-25) mmol/L ABG Total CO2 36 H (19-24) mmol/L ABG O2 Saturation 89.9 L (94-97) % Chloride (98-107) mmol/L Carbon Dioxide (22-30) mmol/L BUN (9-20) mg/dL Creatinine (0.66-1.25) mg/dL Glucose (74-99) mg/dL POC Glucose (mg/dL) 162 H (70-110) mg/dL Calcium (8.4-10.2) mg/dL Microbiology - Last 24 Hours (Table) 04/05/22 15:29 Gram Stain - Preliminary Leg - Left Wound Culture - Preliminary Gram Neg Bacilli Presumptive MRSA 04/05/22 15:18 Blood Culture - Preliminary Blood No Growth after 48 hours 04/05/22 15:18 Blood Culture - Preliminary Blood No Growth after 48 hours 04/06/22 19:50 Gram Stain - Preliminary Sputum Sputum Culture - Preliminary Assessment and Plan Assessment: Acute hypoxemic respiratory failure secondary to acute diastolic congestive heart failure, and acute exacerbation of chronic obstructive pulmonary disease. Acute hypercapnic respiratory failure secondary to above. Atrial fibrillation with a rapid ventricular response, currently on a Cardizem drip, amiodarone drip, anticoagulated with Eliquis. Morbid obesity with a BMI of 50 kg/m2. Obstructive sleep apnea, maintained on BiPAP 20/16 along with 2 L of oxygen. Chronic obstructive pulmonary disease, oxygen dependent, FEV1 value 22% of predicted. Small left leg wound, with gram-negative bacilli/presumptive staph. Acute on chronic lower extremity edema secondary to right-sided heart failu re/cor pulmonale. Former smoker. Plan: Plan dated 04/08/2022. Labs, x-rays, and medications are reviewed. The patient is too unstable for a daily interruption of sedation, and spontaneous breathing trial. The patient remains on Cardizem at 15 mg an hour, and amiodarone, at 1 mg/m. The patient's pO2 is only 62. He is receiving tube feedings with vital high protein, at goal. The left leg wound, is showing evidence of gram-negative bacilli, and presum ptive staph. We will ask for an infectious disease consultation. The patient continues on bronchodilators and Solu-Medrol. He remains on antibiotics. Additional recommendations and suggestions are forthcoming. Prognosis is certainly very guarded. Time with Patient: Greater than 30
[2022-04-08] MEDS ORDERED: VANCOMYCIN IV PER PHARMACY 1 EACH MISC MISCELLANE PRN (15:28)
[2022-04-08] MEDS ORDERED: VANCOMYCIN 2,500 MG in SODIUM CHLORIDE 0.9% 500 ML 500 ML IVPB ONE (16:00)
[2022-04-08] MEDS: CEFEPIME 2 GM in SODIUM CHLORIDE 0.9% 100 ML IVPB SCH ×2 (16:07→23:46)
[2022-04-08] MEDS: DILTIAZEM 125 MG in SODIUM CHLORIDE 0.9% 100 ML IV SCH (16:08)
[2022-04-08 18:07] LABS: Glucose,Whole Blood 169 mg/dL (70-110)
--- NOTE | 2022-04-08 21:50 | PN ---
PROGRESS NOTE SUBJECTIVE: This is a 56-year-old gentleman who was admitted with CHF acute exacerbation, also had significant atrial fibrillation. The patient had acute hypoxic respiratory failure. The patient remained mechanically intubated and sedated. The patient will be closely monitored in ICU at this time. PAST MEDICAL HISTORY: Reviewed. REVIEW OF SYSTEMS: Could not be taken. CURRENT MEDICATIONS: Reviewed include albuterol, doses and rest of medications noted. PHYSICAL EXAMINATION: VITAL SIGNS: Pulse is 126, irregular. Blood pressure , respirations 28. HEENT: Conjunctivae normal. NECK: No JVD. CARDIOVASCULAR: S1, S2 muffled. RESPIRATIONS: Breath sounds diminished at the bases. A few scattered rhonchi. ABDOMEN: Soft. LEGS: No edema. NERVOUS SYSTEM: Sedated. No focal deficits. LABS: WBC 13. The rest of the labs are noted. Chest x-ray reviewed personally has significant cardiomegaly. ASSESSMENT: 1. Shortness of breath, possible acute asthma, acute exacerbation. 2. Atrial ablation, fast ventricular rate. 3. Hypertension. 4. Obstructive sleep apnea. 5. Cellulitis of bilateral lower legs. RECOMMENDATIONS AND DISCUSSION: I recommend to continue current management and symptomatic treatment. 2-D echo was reviewed. Chest x-ray reviewed personally. Prognosis guarded. Further recommendations to follow. See orders for further details. MMODL / IJN: [id number] /
[2022-04-08 23:28] LABS: Glucose,Whole Blood 159 mg/dL (70-110)
[2022-04-08] MEDS: HYDROmorphone 1 MG/ML 1 ML SYRINGE IVP PRN (23:46)
--- NOTE | 2022-04-08 23:52 | XR ---
EXAMINATION TYPE: XR chest 1V portable DATE OF EXAM: 04/08/2022 COMPARISON: Today HISTORY: Tube placement TECHNIQUE: Single view FINDINGS: There is gastric tube and the tip is below the diaphragm. Tip is not included on the exam. Exam limited by positioning and patient size. There is endotracheal tube 8 cm from the yulia. There is some pulmonary interstitial and airspace edema. There is blunting of the costophrenic angles. Hear t is enlarged. IMPRESSION: There is pulmonary edema and pleural fluid without change compared to exam this morning a nd consistent with chronic heart failure.
[2022-04-09] MEDS: NOREPINEPHRINE 4 MG in SODIUM CHLORIDE 0.9% 250 ML IV SCH ×3 (01:35→19:56)
[2022-04-09] MEDS: IPRATROPIUM-ALBUTEROL 3 ML NEB INHALATION SCH ×6 (03:04→23:16)
[2022-04-09 05:11] LABS: ABG Base Excess 10.3 mmol/L; ABG HCO3 35 mmol/L (21-25); ABG Oxygen Saturation 90.9 % (94-97); ABG PCO2 59 mmHg (35-45); ABG PH 7.38 (7.35-7.45); ABG PO2 62 mmHg (83-108); ABG TCO2 37 mmol/L (19-24)
[2022-04-09 05:14] LABS: Allen Test Performed? no
[2022-04-09 05:23] LABS: Basophils % (A) 0 %; Eosinophils % (A) 0 %; HCT 43.8 % (39.0-53.0); HGB 14.1 gm/dL (13.0-17.5); Hypochromasia Moderate; Lymphocytes # (A) 0.2 k/uL (1.0-4.8); Lymphocytes % (A) 2 %; MCHC 32.3 g/dL (31.0-37.0); MCV 89.9 fL (80.0-100.0); Mean Platelet Volume 8.5; Monocytes # (A) 0.3 k/uL (0-1.0); Monocytes % (A) 3 %; Neutrophils # (A) 9.3 k/uL (1.3-7.7); Neutrophils % (A) 94 %; Platelet Count 166 k/uL (150-450); RBC 4.87 m/uL (4.30-5.90); RDW 14.5 % (11.5-15.5); WBC 9.9 k/uL (3.8-10.6)
[2022-04-09 05:26] LABS: Glucose,Whole Blood 172 mg/dL (70-110)
[2022-04-09] MEDS: INSULIN ASPART (NovoLOG) 100 UNIT/ML VIAL SQ SCH ×4 (05:29→23:54)
[2022-04-09] MEDS: methylPREDNISolone SOD SUCCI 125 MG/2 ML VIAL IV SCH ×4 (05:29→23:54)
[2022-04-09 05:42] LABS: Calcium 8.1 mg/dL (8.4-10.2); Potassium 4.6 mmol/L (3.5-5.1)
[2022-04-09] MEDS ORDERED: VANCOMYCIN 2,500 MG in SODIUM CHLORIDE 0.9% 500 ML 500 ML IVPB SCH (06:00)
--- NOTE | 2022-04-09 06:53 | XR ---
EXAMINATION TYPE: XR chest 1V portable DATE OF EXAM: 04/09/2022 6:34 AM COMPARISON: Chest radiographs from 04/08/2022 TECHNIQUE: XR chest 1V portable Frontal view of the chest. CLINICAL INDICATION:Male, 56 years old with history of Tube placement; FINDINGS: Lungs/Pleura: No pneumothorax. Small to moderate bilateral pleural effusions. No focal consolidation. Pulmonary vascularity: Pulmonary vascular congestion. Heart/mediastinum: Cardiomediastinal silhouette is enlarged and stable. Musculoskeletal: No acute osseous pathology. Other findings: None Lines/Tubes: Endotracheal tube with distal tip 5.3 cm above the yulia Nasogastric tube with its distal tip and side-port projecting under the diaphragm. IMPRESSION: 1. Cardiomegaly, pulmonary vascular congestion and bilateral pleural effusions. Correlate with BNP f or congestive heart failure. 2. Stable support tubes.
--- NOTE | 2022-04-09 07:03 | P.CONS ---
History of Present Illness - Reason for Consult Consult date: 04/08/22 - History of Present Illness Patient is a 56-year-old male with a past medical history significant for COPD presenting to the hospital 4 days ago for evaluation of difficulty in breathing patient symptom has been going on for a couple of weeks before presentation to the hospital and the patient did have difficulty maintaining his O2 sats also complaining of occasional cough and appeared to have diffuse swelling to the lower abdomen and the lower extremity, patient on presentation to the hospital was afebrile and no fever have been recorded subsequently patient did have a normal white count initially subsequent white count was up to 13.2 on 04/07/2022 patient did have diffuse swelling to lower extremity and some superficial ulceration with drainage from the left leg which was cultures came back positive with the gram-negative bacilli and a presumptive MRSA patient is currently being treated with cefazolin infectious disease was consulted for further management of antibiotic therapy patient chest x-ray on admission consistent with CHF exacerbation cardiomegaly with minimal to moderate central venous congestion chest x-ray completed last tissue the same findings without significant improvement most information has been obtained from review the chart talking to nursing staff the patient is currently on the vent and unable to provide any history Past Medical History Past Medical History: Atrial Fibrillation, Asthma, Sleep Apnea/CPAP/BIPAP History of Any Multi-Drug Resistant Organisms: None Reported Past Surgical History: Hernia Repair, Joint Replacement, Orthopedic Surgery Additional Past Surgical History / Comment(s): rt hip, rt foot Past Anesthesia/Blood Transfusion Reactions: No Reported Reaction Smoking Status: Former smoker Medications and Allergies Home Medications Medication Instructions Recorded Confirmed Type Apixaban [Eliquis] 5 mg PO BID #60 tab 05/13/21 04/05/22 Rx Furosemide [Lasix] 40 mg PO DAILY #30 tab 05/13/21 04/05/22 Rx Melatonin 5 mg PO HS 07/26/21 04/05/22 History Acetaminophen Tab [Tylenol Tab] 1,000 mg PO BID 04/05/22 04/05/22 History Albuterol Sulfate [Proair Hfa] 2 puff INHALATION RT-Q4H PRN 04/05/22 04/05/22 History Aspirin EC [Ecotrin Low Dose] 81 mg PO DAILY 04/05/22 04/05/22 History Budesonide/Glycopyr/Formoterol 1 puff INHALATION RT-BID 04/05/22 04/05/22 History [Breztri Aerosphere Inhaler] Flaxseed Oil 1200mg 1 cap PO DAILY 04/05/22 04/05/22 History Fluticasone/Vilanterol [Breo 1 puff INHALATION RT-DAILY 04/05/22 04/05/22 History Ellipta 100-25 Mcg Inhaler] Sodium Chloride [[place]] 1 spr EA NOSTRIL DAILY PRN 04/05/22 04/05/22 History Sulfamethox-Tmp 800-160Mg [Bactrim 1 tab PO MOWEFR 04/05/22 04/05/22 History DS 800-160 mg] Ubidecarenone [Coenzyme Q10] 200 mg PO DAILY 04/05/22 04/05/22 History carvediloL [Coreg] 12.5 mg PO BID 04/05/22 04/05/22 History dilTIAZem HCL [dilTIAZem HCL 12Hr 120 mg PO BID 04/05/22 04/05/22 History ER] Allergies Allergy/AdvReac Type Severity Reaction Status Date / Time No Known Allergies Allergy Verified 04/05/22 17:43 Physical Exam Vitals: Vital Signs Temp Pulse Resp BP Pulse Ox FiO2 04/08/22 12:13 106 H 04/08/22 12:04 114 H 04/08/22 11:59 50 04/08/22 11:09 50 04/08/22 11:00 111 H 26 H 89 L 04/08/22 10:00 106 H 27 H 88 L 04/08/22 09:00 106 H 29 H 88 L 04/08/22 08:00 98.1 F 109 H 26 H 89 L 50 04/08/22 07:46 97 04/08/22 07:33 111 H 04/08/22 07:24 50 04/08/22 07:00 105 H 26 H 89 L 50 04/08/22 06:00 96 26 H 91 L 50 04/08/22 05:00 120 H 26 H 91 L 04/08/22 04:00 98.2 F 106 H 26 H 91 L 50 04/08/22 03:30 96 04/08/22 03:19 134 H 50 04/08/22 03:00 112 H 26 H 89 L 50 04/08/22 02:00 125 H 26 H 89 L 50 04/08/22 01:00 133 H 26 H 90 L 04/08/22 00:00 98.3 F 112 H 22 89 L 50 04/07/22 23:15 129 H 04/07/22 23:08 50 04/07/22 23:07 129 H 04/07/22 23:00 128 H 26 H 90 L 04/07/22 22:30 131 H 27 H 90 L 04/07/22 22:00 125 H 26 H 96/73 90 L 50 04/07/22 21:00 134 H 23 91 L 50 04/07/22 20:00 98.1 F 117 H 26 H 96/73 91 L 50 04/07/22 19:32 122 H 04/07/22 19:22 50 04/07/22 19:21 140 H 04/07/22 19:00 131 H 27 H 91 L 50 04/07/22 18:00 125 H 26 H 91 L 50 04/07/22 17:00 138 H 26 H 90 L 50 04/07/22 16:45 135 H 26 H 90 L 04/07/22 16:30 118 H 26 H 91 L 04/07/22 16:15 133 H 26 H 96/73 90 L 04/07/22 16:00 98.7 F 126 H 28 H 90 L 50 04/07/22 15:45 110 H 26 H 96/73 90 L 04/07/22 15:38 124 H 04/07/22 15:30 121 H 26 H 96/73 90 L 04/07/22 15:26 128 H 04/07/22 15:23 50 04/07/22 15:15 133 H 27 H 90 L 04/07/22 15:00 130 H 35 H 90 L 50 04/07/22 14:45 128 H 26 H 91 L 04/07/22 14:30 123 H 26 H 96/73 90 L 04/07/22 14:15 129 H 23 96/73 91 L 04/07/22 14:00 124 H 27 H 96/73 91 L 04/07/22 13:45 121 H 26 H 96/73 92 L Intake and Output 04/07/22 04/08/22 04/08/22 22:59 06:59 14:59 Intake Total 903.805 954.760 573.9 Output Total 485 550 310 Balance 418.805 404.760 263.9 Intake: IV 210 160 213.9 0.9% Sodium Chloride 160 160 60 Amiodarone 360 mg In 99.9 Dextrose 5% in Water 200 ml @ 1 MG/MIN 33.333 mls/ hr IV .Q6H [facility] Rx#: [id number] Diltiazem 125 mg In 45 Sodium Chloride 0.9% 100 ml @ 5 MG/HR 5 mls/hr IV .Q24H [facility] Rx#:[id number] kefzol 50 pressure bag 9 Intake, IV Titration 373.805 474.760 100 Amount Amiodarone 360 mg In 185.554 200 Dextrose 5% in Water 200 ml @ 1 MG/MIN 33.333 mls/ hr IV .Q6H [facility] Rx#: [id number] propofoL 1,000 mg In 188.251 274.760 100 Empty Bag 1 bag @ 15 MCG/ KG/MIN 13.064 mls/hr IV . Q7H40M [facility] Rx#:[id number] Tube Feeding 320 320 160 Other 100 Output: Urine 485 550 260 Oral Regurgitation 50 Other: Voiding Method Indwelling Catheter Indwelling Catheter Indwelling Catheter Weight 169.5 kg ABP, PAP, CO, CI - Last 8 Hours Arterial Blood Pressure 129/70 Arterial Blood Pressure 113/62 Arterial Blood Pressure 117/69 Arterial Blood Pressure 110/66 Arterial Blood Pressure 126/72 Arterial Blood Pressure 114/56 Results CBC & Chem 7: 04/09/22 05:05 04/09/22 05:05 Labs: Abnormal Lab Results - Last 24 Hours (Table) 04/07/22 04/08/22 04/08/22 Range/Units 17:53 00:06 04:50 WBC 12.1 H (3.8-10.6) k/uL MCHC 30.7 L (31.0-37.0) g/dL Neutrophils # 11.4 H (1.3-7.7) k/uL Lymphocytes # 0.2 L (1.0-4.8) k/uL ABG pCO2 (35-45) mmHg ABG pO2 (83-108) mmHg ABG HCO3 (21-25) mmol/L ABG Total CO2 (19-24) mmol/L ABG O2 Saturation (94-97) % Chloride (98-107) mmol/L Carbon Dioxide (22-30) mmol/L BUN (9-20) mg/dL Creatinine (0.66-1.25) mg/dL Glucose (74-99) mg/dL POC Glucose (mg/dL) 158 H 168 H (70-110) mg/dL Calcium (8.4-10.2) mg/dL 04/08/22 04/08/22 04/08/22 Range/Units 04:50 05:14 11:16 WBC (3.8-10.6) k/uL MCHC (31.0-37.0) g/dL Neutrophils # (1.3-7.7) k/uL Lymphocytes # (1.0-4.8) k/uL ABG pCO2 61 H (35-45) mmHg ABG pO2 62 L (83-108) mmHg ABG HCO3 34 H (21-25) mmol/L ABG Total CO2 36 H (19-24) mmol/L ABG O2 Saturation 89.9 L (94-97) % Chloride 94 L (98-107) mmol/L Carbon Dioxide 31 H (22-30) mmol/L BUN 60 H (9-20) mg/dL Creatinine 1.74 H (0.66-1.25) mg/dL Glucose 175 H (74-99) mg/dL POC Glucose (mg/dL) 162 H (70-110) mg/dL Calcium 8.3 L (8.4-10.2) mg/dL Microbiology - Last 24 Hours (Table) 04/05/22 15:29 Gram Stain - Preliminary Leg - Left Wound Culture - Preliminary Gram Neg Bacilli Presumptive MRSA 04/05/22 15:18 Blood Culture - Preliminary Blood No Growth after 48 hours 04/05/22 15:18 Blood Culture - Preliminary Blood No Growth after 48 hours 04/06/22 19:50 Gram Stain - Preliminary Sputum Sputum Culture - Preliminary Assessment and Plan Plan: 1patient presented to hospital with acute respiratory failure currently on the ventilator likely multifactorial in this patient with underlying COPD and not concerning for increased swelling to bilateral lower extremity and some superficial ulceration and redness concerning for possible cellulitis with local culture not showing gram-negative and present to MRSA. 2discontinue cefazolin. 3start the patient on cefepime and vancomycin while waiting for the culture to finalize. We will follow on clinical condition and cultures to further adjust medication if needed Thank you for this consultation will follow this patient along with you Time with Patient: Greater than 30
[2022-04-09] MEDS: CEFEPIME 2 GM in SODIUM CHLORIDE 0.9% 100 ML IVPB SCH ×2 (08:27→20:00)
[2022-04-09] MEDS: FUROSEMIDE 10 MG/ML 4 ML VIAL IV SCH (08:38)
[2022-04-09] MEDS: CHLORHEXIDINE GLUCONATE 15 ML CUP MUCOUS MEM SCH ×2 (08:38→20:00)
[2022-04-09] MEDS: APIXABAN 5 MG TAB PO SCH ×2 (08:38→20:01)
[2022-04-09] MEDS: AMIODARONE 200 MG TAB PO SCH (08:38)
--- NOTE | 2022-04-09 09:49 | P.PN ---
Subjective Progress Note Date: 04/09/22 The patient is a 56-year-old male who presented to the hospital with worsening shortness of breath. He was initially admitted to [address] [place] [address] on BiPAP, and became hypoxic and was subsequently intubated. After intubation he developed A. fib with RVR. He was started on oral amiodarone and Cardizem drip, which was ultimately weaned yesterday. According to nursing staff his heart rates have been in the 90s to low 100s. GENERAL: Ill-appearing, obese male. Currently sedated on ventilator. NECK: Supple without JVD or thyromegaly. LUNGS: Breath sounds rhonchorous to auscultation bilaterally. Respiration equal and unlabored. Currently vented. HEART: Irregular rate and rhythm without murmurs, rubs or gallops. S1 and S2 heard. EXTREMITIES: Normal range of motion, mild bilateral edema. No clubbing or cyan osis. Peripheral pulses intact and strong. VITALS: Blood pressure 118/60, heart rate 105, respiratory rate 26, SpO2 90% on 15 L FiO2 TELEMETRY: Atrial fibrillation with heart rates in the 90s LABS: WBC 9.9, hemoglobin 14.1, hematocrit 43.8, platelet 166, sodium 137, potassium 4.5, BUN 74, creatinine 1.68 IMPRESSION: Atrial fibrillation, resume calcium channel ag Congestive heart failure, preserved ejection fraction COPD exacerbation, currently ventilated Elevated troponins, flat trend Morbid obesity, BMI 50 Venous stasis ulcer, positive for gram-negative bacilli History of atrial flutter, ablation 07/27/2021 PLAN: Discontinue amiodarone Resume Cardizem 120 mg twice daily then transition to 240 mg extended release once extubated Consider resuming carvedilol in the future Further recommendations based on clinical course I am dictating on behalf of Dr Carmine Dickerson's history/physical and assessment/plan. Objective - Vital Signs Vital signs: Vital Signs Temp 98.2 F 04/09/22 00:00 Pulse 99 04/09/22 08:31 Resp 26 H 04/09/22 06:00 BP 96/73 04/07/22 22:00 Pulse Ox 89 L 04/09/22 06:00 FiO2 50 04/09/22 08:27 Intake & Output 04/08/22 04/09/22 04/09/22 18:59 06:59 18:59 Intake Total 2334.700 1831.638 100 Output Total 980 2245 Balance 1354.700 -413.362 100 Weight 165.7 kg Intake: IV 1111.9 590 0.9% Sodium Chloride 190 120 Amiodarone 360 mg In 99.9 Dextrose 5% in Water 200 ml @ 1 MG/MIN 33.333 mls/ hr IV .Q6H [facility] Rx#: [id number] Cefepime 2 gm In Sodium 100 100 Chloride 0.9% 100 ml @ 25 mls/hr IVPB Q8HR [facility] Rx# :[id number] Diltiazem 125 mg In 135 Sodium Chloride 0.9% 100 ml @ 5 MG/HR 5 mls/hr IV .Q24H [facility] Rx#:[id number] Vancomycin 2,500 mg In 501 334 Sodium Chloride 0.9% 500 ml 500 ml @ 167 mls/hr IVPB Q16H [facility] Rx#: [id number] kefzol 50 pressure bag 36 36 Intake, IV Titration 402.800 461.638 100 Amount Diltiazem 125 mg In 125 83.667 Sodium Chloride 0.9% 100 ml @ 5 MG/HR 5 mls/hr IV .Q24H [facility] Rx#:[id number] propofoL 1,000 mg In 277.800 377.971 100 Empty Bag 1 bag @ 15 MCG/ KG/MIN 13.064 mls/hr IV . Q7H40M [facility] Rx#:[id number] Tube Feeding 520 480 Other 300 300 Output: Urine 930 2245 Oral Regurgitation 50 Other: Voiding Method Indwelling Catheter Indwelling Catheter ABP, PAP, CO, CI - Last Documented Arterial Blood Pressure 118/60 - Labs CBC & Chem 7: 04/09/22 05:05 04/09/22 05:05 Labs: Abnormal Lab Results - Last 24 Hours (Table) 04/08/22 04/08/22 04/08/22 Range/Units 11:16 18:05 23:27 Neutrophils # (1.3-7.7) k/uL Lymphocytes # (1.0-4.8) k/uL ABG pCO2 (35-45) mmHg ABG pO2 (83-108) mmHg ABG HCO3 (21-25) mmol/L ABG Total CO2 (19-24) mmol/L ABG O2 Saturation (94-97) % Chloride (98-107) mmol/L Carbon Dioxide (22-30) mmol/L BUN (9-20) mg/dL Creatinine (0.66-1.25) mg/dL Glucose (74-99) mg/dL POC Glucose (mg/dL) 162 H 169 H 159 H (70-110) mg/dL Calcium (8.4-10.2) mg/dL 04/09/22 04/09/22 04/09/22 Range/Units 05:05 05:05 05:10 Neutrophils # 9.3 H (1.3-7.7) k/uL Lymphocytes # 0.2 L (1.0-4.8) k/uL ABG pCO2 59 H (35-45) mmHg ABG pO2 62 L (83-108) mmHg ABG HCO3 35 H (21-25) mmol/L ABG Total CO2 37 H (19-24) mmol/L ABG O2 Saturation 90.9 L (94-97) % Chloride 95 L (98-107) mmol/L Carbon Dioxide 33 H (22-30) mmol/L BUN 74 H (9-20) mg/dL Creatinine 1.68 H (0.66-1.25) mg/dL Glucose 168 H (74-99) mg/dL POC Glucose (mg/dL) (70-110) mg/dL Calcium 8.1 L (8.4-10.2) mg/dL 04/09/22 Range/Units 05:25 Neutrophils # (1.3-7.7) k/uL Lymphocytes # (1.0-4.8) k/uL ABG pCO2 (35-45) mmHg ABG pO2 (83-108) mmHg ABG HCO3 (21-25) mmol/L ABG Total CO2 (19-24) mmol/L ABG O2 Saturation (94-97) % Chloride (98-107) mmol/L Carbon Dioxide (22-30) mmol/L BUN (9-20) mg/dL Creatinine (0.66-1.25) mg/dL Glucose (74-99) mg/dL POC Glucose (mg/dL) 172 H (70-110) mg/dL Calcium (8.4-10.2) mg/dL Microbiology - Last 24 Hours (Table) 04/05/22 15:18 Blood Culture - Preliminary Blood No Growth after 72 hours 04/05/22 15:18 Blood Culture - Preliminary Blood No Growth after 72 hours 04/05/22 15:29 Gram Stain - Preliminary Leg - Left Wound Culture - Preliminary Gram Neg Bacilli Presumptive MRSA
--- NOTE | 2022-04-09 10:27 | P.PN ---
Subjective Progress Note Date: 04/09/22 On today's evaluation of 04/09/2022, the patient is being seen for a follow-up. He is a 56-year-old gentleman with known history of diastolic heart failure, COPD, chronic hypoxic and hypercapnic respiratory failure and the patient also has obstructive sleep apnea maintained on a BiPAP at a potential 20/16 cm of water along with oxygen at 2 L/m nasal cannula. The patient also has history of liquids. At this point in time, the patient is intubated on a mechanical ventilator for respiratory failure. The patient remains on propofol which is running at 40 mcg/kg/m. The patient is on a mechanical ventilator assist control mode with a rate of 26 with a tidal volume of 450 and FiO2 of 50% with a PEEP of 5. The chest x-ray from today was noted and the patient has adequate positioning of the orotracheal and orogastric tube. The chest x-ray from today is showing that she was back up pulmonary infiltrates and obvious back or pleural effusions. Based on a previous chest x-ray that was on today's ago, the chest x-ray findings are essentially unchanged. The patient had an echocardiogram during this current admission that was done on 04/06/2022 and echo showed a preserved LV function with an ejection fraction of 50-55%. There was no structural or valvular abnormalities noted. The blood work from today shows a white cell count of 9.0 with hemoglobin of 14.1 and a platelet count of 166. Sodium is 137, again is at 74 with a creatinine of 1.6 and a potassium level of 4.6 with a serum bicarb of 44. The patient's blood gas from today shows a pH of 7.38 with episodes of 59 and pO2 of 62. The patient is afebrile. Current cardiac rhythm is a chest fibrillation. The patient is slightly t achycardic. The patient's is on" initial liquids 5 mg by mouth twice a day. He remains on IV cefepime as a broad-spectrum of the cover antibiotic coverage in combination with vancomycin. He is also on no pressors for now. He is receiving enteral feeding for social support and is currently on vital high- protein at the rate of 40 mL an hour. He is on IV Lasix. The overall fluid balance over the past 24 hours has been +1.2 L. Objective - Vital Signs Vital signs: Vital Signs Temp 98.2 F 04/09/22 00:00 Pulse 99 04/09/22 08:31 Resp 26 H 04/09/22 06:00 BP 96/73 04/07/22 22:00 Pulse Ox 89 L 04/09/22 06:00 FiO2 50 04/09/22 08:27 Intake & Output 04/08/22 04/09/22 04/09/22 18:59 06:59 18:59 Intake Total 2334.700 1831.638 100 Output Total 980 2245 Balance 1354.700 -413.362 100 Weight 165.7 kg 165.7 kg Intake: IV 1111.9 590 0.9% Sodium Chloride 190 120 Amiodarone 360 mg In 99.9 Dextrose 5% in Water 200 ml @ 1 MG/MIN 33.333 mls/ hr IV .Q6H [facility] Rx#: [id number] Cefepime 2 gm In Sodium 100 100 Chloride 0.9% 100 ml @ 25 mls/hr IVPB Q8HR [facility] Rx# :[id number] Diltiazem 125 mg In 135 Sodium Chloride 0.9% 100 ml @ 5 MG/HR 5 mls/hr IV .Q24H [facility] Rx#:[id number] Vancomycin 2,500 mg In 501 334 Sodium Chloride 0.9% 500 ml 500 ml @ 167 mls/hr IVPB Q16H [facility] Rx#: [id number] kefzol 50 pressure bag 36 36 Intake, IV Titration 402.800 461.638 100 Amount Diltiazem 125 mg In 125 83.667 Sodium Chloride 0.9% 100 ml @ 5 MG/HR 5 mls/hr IV .Q24H [facility] Rx#:[id number] propofoL 1,000 mg In 277.800 377.971 100 Empty Bag 1 bag @ 15 MCG/ KG/MIN 13.064 mls/hr IV . Q7H40M [facility] Rx#:[id number] Tube Feeding 520 480 Other 300 300 Output: Urine 930 2245 Oral Regurgitation 50 Other: Voiding Method Indwelling Catheter Indwelling Catheter ABP, PAP, CO, CI - Last Documented Arterial Blood Pressure 118/60 - Exam No acute distress, sedated, with an orally placed endotracheal tube, and NG tube.. HEENT examination is grossly unremarkable. Neck supple. Full range of motion. No adenopathy thyromegaly or neck vein distention. Cardiovascular examination reveals an irregular rhythm and rate. S1-S2 normal. No S3 or S4. No discernible murmur noted. Lungs reveal bilateral coarse rhonchi, and crackles. Breath sounds equal bilaterally. No wheezes. Abdomen soft, with bowel sounds. No masses or tenderness. the patient has a significant scrotal edema that has gotten significantly worse during this current admission. Extremities are intact. Small left leg wound noted. No cyanosis or clubbing. Mild to moderate edema appreciated. Skin is without rash or lesion. Neurologic examination cannot be adequately assessed at this time. the patient is deeply sedated. The patient's sedation will be kept on 12 lower degree of sedation and in her neurologic examination will be done. - Labs CBC & Chem 7: 04/09/22 05:05 04/09/22 05:05 Labs: Abnormal Lab Results - Last 24 Hours (Table) 04/08/22 04/08/22 04/08/22 Range/Units 11:16 18:05 23:27 Neutrophils # (1.3-7.7) k/uL Lymphocytes # (1.0-4.8) k/uL ABG pCO2 (35-45) mmHg ABG pO2 (83-108) mmHg ABG HCO3 (21-25) mmol/L ABG Total CO2 (19-24) mmol/L ABG O2 Saturation (94-97) % Chloride (98-107) mmol/L Carbon Dioxide (22-30) mmol/L BUN (9-20) mg/dL Creatinine (0.66-1.25) mg/dL Glucose (74-99) mg/dL POC Glucose (mg/dL) 162 H 169 H 159 H (70-110) mg/dL Calcium (8.4-10.2) mg/dL 04/09/22 04/09/22 04/09/22 Range/Units 05:05 05:05 05:10 Neutrophils # 9.3 H (1.3-7.7) k/uL Lymphocytes # 0.2 L (1.0-4.8) k/uL ABG pCO2 59 H (35-45) mmHg ABG pO2 62 L (83-108) mmHg ABG HCO3 35 H (21-25) mmol/L ABG Total CO2 37 H (19-24) mmol/L ABG O2 Saturation 90.9 L (94-97) % Chloride 95 L (98-107) mmol/L Carbon Dioxide 33 H (22-30) mmol/L BUN 74 H (9-20) mg/dL Creatinine 1.68 H (0.66-1.25) mg/dL Glucose 168 H (74-99) mg/dL POC Glucose (mg/dL) (70-110) mg/dL Calcium 8.1 L (8.4-10.2) mg/dL 04/09/22 Range/Units 05:25 Neutrophils # (1.3-7.7) k/uL Lymphocytes # (1.0-4.8) k/uL ABG pCO2 (35-45) mmHg ABG pO2 (83-108) mmHg ABG HCO3 (21-25) mmol/L ABG Total CO2 (19-24) mmol/L ABG O2 Saturation (94-97) % Chloride (98-107) mmol/L Carbon Dioxide (22-30) mmol/L BUN (9-20) mg/dL Creatinine (0.66-1.25) mg/dL Glucose (74-99) mg/dL POC Glucose (mg/dL) 172 H (70-110) mg/dL Calcium (8.4-10.2) mg/dL Microbiology - Last 24 Hours (Table) 04/05/22 15:18 Blood Culture - Preliminary Blood No Growth after 72 hours 04/05/22 15:18 Blood Culture - Preliminary Blood No Growth after 72 hours 04/05/22 15:29 Gram Stain - Preliminary Leg - Left Wound Culture - Preliminary Gram Neg Bacilli Presumptive MRSA Assessment and Plan Plan: Acute hypoxemic respiratory failure secondary to acute diastolic congestive heart failure, and acute exacerbation of chronic obstructive pulmonary disease.the chest x-ray continues to show moderate to large bilateral pleural effusion in addition to significant amount of pulm congestion. This is probably a heart failure with preserved LV function. The patient continues to be in fluid overload and the diuresis has not been successful as the patient remains in a possible basilar the past 24 hours. Acute hypercapnic respiratory failure secondary to above. Atrial fibrillation with a rapid ventricular response, currently on a Cardizem drip, amiodarone drip, anticoagulated with Eliquis. Morbid obesity with a BMI of 50 kg/m2. Obstructive sleep apnea, maintained on BiPAP 20/16 along with 2 L of oxygen. Chronic obstructive pulmonary disease, oxygen dependent, FEV1 value 22% of predicted. Small left leg wound, with gram-negative bacilli/presumptive staph. Acute on chronic lower extremity edema secondary to right-sided heart failure/ cor pulmonale. Former smoker. plan Continue ventilator support and no ventilator changes will be done today. Keep the patient sedated with propofol Continue same antibiotic coverage and check a pro-calcitonin level. Start the patient on Lasix drip at 10 mg an hour in addition to Zaroxolyn 5 mg by mouth twice a day and monitor the fluid balance We'll establish a triple-lumen catheter Continue enteral feeding for nutritional support Monitor renal function Monitor electrolytes Not ready for weaning at this point in time. We'll continue to follow I reviewed the antibiotic coverage and I also noted that the patient have any significant 1/ulcerations lower extremities. Based on that, I'm going to stop the vancomycin. and make further recommendations based on his progress.Physical exam evaluation that was done more than 30 minutes. Time with Patient: Greater than 30
[2022-04-09 11:24] LABS: Glucose,Whole Blood 147 mg/dL (70-110)
[2022-04-09] MEDS: FUROSEMIDE 100 MG in SODIUM CHLORIDE 0.9% 90 ML IV SCH ×2 (12:53→20:26)
[2022-04-09] MEDS: NITROGLYCERIN OINT 1 INCH/GM PACKET TOPICAL SCH ×4 (12:53→22:02)
--- NOTE | 2022-04-09 14:09 | P.PN ---
Subjective Progress Note Date: 04/09/22 This is a 56-year-old male who is being monitored in the intensive care unit secondary to acute hypoxic respiratory failure as well as acute CHF exacerbation. Patient found to be in atrial fibrillation with rapid ventricular rate post intubation. The patient is currently intubated with FiO2 50%, current oxygen saturations 89%. Cardizem gtt weaned yesterday, he is on oral cardizem. Chest x-ray this morning showing pulmonary vascular congestion and bilateral pleural effusions correlate for congestive heart failure. Sodium stable at 137, creatinine is trending down at 1.68, peaked yesterday at 1.74. Infectious disease has been consulted for wound cultures positive for presumptive MRSA and gram negative bacilli to the left leg and is currently maintained on IV cefepime and IV vancomycin pending finalized cultures. He continues on IV Lasix every 12, IV steroids 60 every 6 hours. Unable to complete review of systems as patient is currently intubated in ICU PHYSICAL EXAMINATION: GENERAL: Patient is currently maintained on mechanical ventilator. Well developed, well nourished. HEENT: Pupils are round and equally reacting to light. EOMI. No scleral icterus. No conjunctival pallor. Normocephalic, atraumatic. No pharyngeal erythema. No thyromegaly. CARDIOVASCULAR: S1 and S2 present. No murmurs, rubs, or gallops. PULMONARY: Chest is clear to auscultation, no wheezing or crackles. ABDOMEN: Soft, nontender, distended, normoactive bowel sounds. No palpable organomegaly. MUSCULOSKELETAL: No joint swelling or deformity. EXTREMITIES: No cyanosis, clubbing. Peripheral edema pittting upper and lower extremity, bilaterally. NEUROLOGICAL: Unable to complete full neurological exam patient is currently intubated. SKIN: No rashes. Assessment plan Assessment Acute hypoxic respiratory failure secondary to acute diastolic CHF exacerbation and acute COPD exacerbation currently on mechanical ventilator with FiO2 of 50% Atrial fibrillation with fast ventricular rate previous cardioversion Hypertension Obstructive sleep apnea History of COPD, oxygen dependent Left lower extremity ulceration and possible cellulitis with culture showing presumptive MRSA/gram neg bacili Chronic lower extremity edema Former Smoker GI Prophylaxis Protonix DVT Prophylaxis Eliquis Full Code Plan Patient is monitored closely in ICU currently on mechanical ventilator Continues on empiric antibiotics Continues on IV lasix, strict intake and output Continues on IV steroids, bronchodilators Pending finalized wound culture On enteral tube feedings Continues on oral cardizem, oral amidarone discontinued Cardiology, pulmonary burner technician consultation Repeat BMP in AM The impression and plan of care has been dictated by Meri Galvan, Nurse Practitioner as directed. Dr. Denisse MD I have performed a history and physical examination and medical decision making of this patient, discussed the same with the dictator, and agree with the dictators assessment and plan as written, documented as a scribe. Based on total visit time, I have performed more than 50% of this visit. Objective - Vital Signs Vital signs: Vital Signs Temp 98.2 F 04/09/22 00:00 Pulse 99 04/09/22 08:31 Resp 26 H 04/09/22 06:00 BP 96/73 04/07/22 22:00 Pulse Ox 89 L 04/09/22 06:00 FiO2 50 04/09/22 08:27 Intake & Output 04/08/22 04/09/22 04/09/22 18:59 06:59 18:59 Intake Total 2334.700 1831.638 100 Output Total 980 2245 Balance 1354.700 -413.362 100 Weight 165.7 kg Intake: IV 1111.9 590 0.9% Sodium Chloride 190 120 Amiodarone 360 mg In 99.9 Dextrose 5% in Water 200 ml @ 1 MG/MIN 33.333 mls/ hr IV .Q6H [facility] Rx#: [id number] Cefepime 2 gm In Sodium 100 100 Chloride 0.9% 100 ml @ 25 mls/hr IVPB Q8HR [facility] Rx# :[id number] Diltiazem 125 mg In 135 Sodium Chloride 0.9% 100 ml @ 5 MG/HR 5 mls/hr IV .Q24H [facility] Rx#:[id number] Vancomycin 2,500 mg In 501 334 Sodium Chloride 0.9% 500 ml 500 ml @ 167 mls/hr IVPB Q16H [facility] Rx#: [id number] kefzol 50 pressure bag 36 36 Intake, IV Titration 402.800 461.638 100 Amount Diltiazem 125 mg In 125 83.667 Sodium Chloride 0.9% 100 ml @ 5 MG/HR 5 mls/hr IV .Q24H [facility] Rx#:[id number] propofoL 1,000 mg In 277.800 377.971 100 Empty Bag 1 bag @ 15 MCG/ KG/MIN 13.064 mls/hr IV . Q7H40M [facility] Rx#:[id number] Tube Feeding 520 480 Other 300 300 Output: Urine 930 2245 Oral Regurgitation 50 Other: Voiding Method Indwelling Catheter Indwelling Catheter ABP, PAP, CO, CI - Last Documented Arterial Blood Pressure 118/60 - Labs CBC & Chem 7: 04/09/22 05:05 04/09/22 05:05 Labs: Abnormal Lab Results - Last 24 Hours (Table) 04/08/22 04/08/22 04/08/22 Range/Units 11:16 18:05 23:27 Neutrophils # (1.3-7.7) k/uL Lymphocytes # (1.0-4.8) k/uL ABG pCO2 (35-45) mmHg ABG pO2 (83-108) mmHg ABG HCO3 (21-25) mmol/L ABG Total CO2 (19-24) mmol/L ABG O2 Saturation (94-97) % Chloride (98-107) mmol/L Carbon Dioxide (22-30) mmol/L BUN (9-20) mg/dL Creatinine (0.66-1.25) mg/dL Glucose (74-99) mg/dL POC Glucose (mg/dL) 162 H 169 H 159 H (70-110) mg/dL Calcium (8.4-10.2) mg/dL 04/09/22 04/09/22 04/09/22 Range/Units 05:05 05:05 05:10 Neutrophils # 9.3 H (1.3-7.7) k/uL Lymphocytes # 0.2 L (1.0-4.8) k/uL ABG pCO2 59 H (35-45) mmHg ABG pO2 62 L (83-108) mmHg ABG HCO3 35 H (21-25) mmol/L ABG Total CO2 37 H (19-24) mmol/L ABG O2 Saturation 90.9 L (94-97) % Chloride 95 L (98-107) mmol/L Carbon Dioxide 33 H (22-30) mmol/L BUN 74 H (9-20) mg/dL Creatinine 1.68 H (0.66-1.25) mg/dL Glucose 168 H (74-99) mg/dL POC Glucose (mg/dL) (70-110) mg/dL Calcium 8.1 L (8.4-10.2) mg/dL 04/09/22 Range/Units 05:25 Neutrophils # (1.3-7.7) k/uL Lymphocytes # (1.0-4.8) k/uL ABG pCO2 (35-45) mmHg ABG pO2 (83-108) mmHg ABG HCO3 (21-25) mmol/L ABG Total CO2 (19-24) mmol/L ABG O2 Saturation (94-97) % Chloride (98-107) mmol/L Carbon Dioxide (22-30) mmol/L BUN (9-20) mg/dL Creatinine (0.66-1.25) mg/dL Glucose (74-99) mg/dL POC Glucose (mg/dL) 172 H (70-110) mg/dL Calcium (8.4-10.2) mg/dL Microbiology - Last 24 Hours (Table) 04/05/22 15:18 Blood Culture - Preliminary Blood No Growth after 72 hours 04/05/22 15:18 Blood Culture - Preliminary Blood No Growth after 72 hours 04/05/22 15:29 Gram Stain - Preliminary Leg - Left Wound Culture - Preliminary Gram Neg Bacilli Presumptive MRSA Assessment and Plan Time with Patient: Less than 30
--- NOTE | 2022-04-09 14:11 | PN ---
PROGRESS NOTE SUBJECTIVE: This 56-year-old gentleman who was admitted with shortness of breath, possibly acute asthma exacerbation, also atrial fibrillation. Patient is still on mechanical ventilation. Patient was closely monitored in ICU. Cardiology and Pulmonary are following the patient. Most recent chest x-ray showed no significant changes. Patient is still on mechanical ventilation. Vent settings are noted. Dr. Maciel is planning steroids and further weaning later. Cultures showed gram-negative bacilli presented to MRSA. PAST MEDICAL HISTORY: Reviewed. REVIEW OF SYSTEMS: Not taken, the patient is mechanically sedated. CURRENT MEDICATIONS: Reviewed, include Eliquis and doses and rest of medications noted. PHYSICAL EXAMINATION: VITAL SIGNS: Pulse is 115, blood pressure , respirations 26. HEENT: Conjunctivae normal. NECK: No JVD. CARDIOVASCULAR: S1, S2. RESPIRATIONS: Breath sounds diminished at the bases. Bilateral scattered rhonchi and crackles. ABDOMEN: Soft, obese. NERVOUS SYSTEM: Sedated. SKIN: No ulcer or rash. LABS: Reviewed. ASSESSMENT: 1. Shortness of breath, possible acute asthma, acute exacerbation, on mechanical ventilation. 2. Left leg wound with gram-negative bacilli and MRSA. 3. Atrial ablation, fast ventricular rate. 4. Hypertension. 5. Obstructive sleep apnea. 6. Multiple medical issues. RECOMMENDATIONS AND DISCUSSION: This 56-year-old gentleman presents with multiple complex medical issues, we will monitor the patient closely. Continue the current medications and antibiotics. Continue bronchodilators. Continue with mechanical ventilation weaning per Dr. Maciel. Prognosis guarded because of multiple complex medical conditions. Further recommendation to follow. MMODL / IJN: [id number] /
[2022-04-09] MEDS: PANTOPRAZOLE 40 MG/10 ML VIAL IVP SCH (15:39)
--- NOTE | 2022-04-09 16:51 | P.PCN ---
Date of Procedure: 04/09/22 Preoperative Diagnosis: acute hypoxic respiratory failure Postoperative Diagnosis: acute hypoxic respiratory failure Procedure(s) Performed: central line Anesthesia: local Surgeon: Rubén Gregory Estimated Blood Loss (ml): 0 Pathology: other Condition: critical Disposition: ICU Operative Findings: Indication: Hemodynamic monitoring/Intravenous access. A time-out was completed verifying correct patient, procedure, site, positioning, and implant(s) or special equipment if applicable. The patient was placed in a dependent position appropriate for central line placement based on the vein to be cannulated. The patiens left chest was prepped and draped in sterile fashion. 1% Lidocaine was used to anesthetize the surrounding skin area. A triple lumen 9F Cordis catheter was introduced into the left subclavian vein using Seldinger technique. The catheter was threaded smoothly over the guide wire and appropriate blood return was obtained. Each lumen of the catheter was evacuated of air and flushed with sterile saline. The catheter was then sutured in place to the skin and a sterile dressing applied. Perfusion to the extremity distal to the point of catheter insertion was checked and found to be adequate. The patient tolerated the procedure well and there were no complications.
[2022-04-09 17:30] LABS: Glucose,Whole Blood 157 mg/dL (70-110)
--- NOTE | 2022-04-09 17:31 | XR ---
EXAMINATION TYPE: XR chest 1V confirm line [facility] DATE OF EXAM: 04/09/2022 COMPARISON: Today HISTORY: Line placement TECHNIQUE: FINDINGS: There is endotracheal tube 6 cm from the yulia. There is left subclavian catheter with tip in the superior vena cava. Heart is enlarged. There is some pulmonary vascular congestion. There is nasogastric tube with the tip in the stomach. IMPRESSION: Pulmonary edema and vascular congestion unchanged. Tubing in good position.
[2022-04-09] MEDS: metOLazone 5 MG TAB PO SCH (20:01)
[2022-04-09] MEDS: DILTIAZEM ORAL 60 MG TAB PO SCH (20:02)
[2022-04-09 23:54] LABS: Glucose,Whole Blood 163 mg/dL (70-110)
[2022-04-10] MEDS: HYDROmorphone 1 MG/ML 1 ML SYRINGE IVP PRN ×3 (00:35→15:20)
[2022-04-10] MEDS: IPRATROPIUM-ALBUTEROL 3 ML NEB INHALATION SCH ×5 (03:09→20:28)
[2022-04-10] MEDS: NOREPINEPHRINE 4 MG in SODIUM CHLORIDE 0.9% 250 ML IV SCH ×3 (05:05→23:24)
[2022-04-10 05:13] LABS: Basophils # (A) 0.1 k/uL (0-0.2); Basophils % (A) 1 %; Eosinophils # (A) 0.1 k/uL (0-0.7); Eosinophils % (A) 1 %; Hypochromasia Moderate; Lymphocytes # (A) 0.1 k/uL (1.0-4.8); Lymphocytes % (A) 1 %; MCH 28.8 pg (25.0-35.0); Mean Platelet Volume 8.7; Monocytes # (A) 0.4 k/uL (0-1.0); Monocytes % (A) 4 %; Neutrophils # (A) 9.1 k/uL (1.3-7.7); Neutrophils % (A) 94 %; Platelet Count 154 k/uL (150-450); RBC 5.23 m/uL (4.30-5.90); RDW 14.2 % (11.5-15.5); WBC 9.7 k/uL (3.8-10.6)
[2022-04-10 05:17] LABS: ABG Base Excess 19.1 mmol/L; ABG Oxygen Saturation 90.9 % (94-97); ABG PCO2 62 mmHg (35-45); ABG PH 7.45 (7.35-7.45); ABG PO2 62 mmHg (83-108); ABG TCO2 45 mmol/L (19-24)
[2022-04-10 05:20] LABS: ABG HCO3 43 mmol/L (21-25); Allen Test Performed? no
[2022-04-10 05:23] LABS: Potassium 4.5 mmol/L (3.5-5.1)
[2022-04-10] MEDS: FUROSEMIDE 100 MG in SODIUM CHLORIDE 0.9% 90 ML IV SCH (05:42)
[2022-04-10 05:48] LABS: Glucose,Whole Blood 168 mg/dL (70-110)
[2022-04-10] MEDS: INSULIN ASPART (NovoLOG) 100 UNIT/ML VIAL SQ SCH ×4 (05:49→23:28)
[2022-04-10] MEDS: methylPREDNISolone SOD SUCCI 125 MG/2 ML VIAL IV SCH ×4 (05:49→23:28)
[2022-04-10] MEDS: NITROGLYCERIN OINT 1 INCH/GM PACKET TOPICAL SCH ×4 (07:46→21:55)
[2022-04-10] MEDS: PANTOPRAZOLE 40 MG/10 ML VIAL IVP SCH (07:46)
[2022-04-10] MEDS: CHLORHEXIDINE GLUCONATE 15 ML CUP MUCOUS MEM SCH ×2 (07:46→20:31)
[2022-04-10] MEDS: APIXABAN 5 MG TAB PO SCH ×2 (07:47→20:31)
[2022-04-10] MEDS: DILTIAZEM ORAL 60 MG TAB PO SCH ×2 (07:47→20:39)
[2022-04-10] MEDS: CEFEPIME 2 GM in SODIUM CHLORIDE 0.9% 100 ML IVPB SCH ×2 (07:47→20:31)
[2022-04-10] MEDS: metOLazone 5 MG TAB PO SCH ×2 (07:47→20:39)
--- NOTE | 2022-04-10 08:29 | XR ---
EXAMINATION TYPE: XR chest 1V portable DATE OF EXAM: 04/10/2022 COMPARISON: Chest x-ray 04/09/2022 HISTORY: Intubated TECHNIQUE: Single frontal view of the chest is obtained. FINDINGS: Endotracheal tube, NG tube, left subclavian central venous catheter are again noted and ov erlying appropriate positions. Patient is rotated. No evident pneumothorax. Bibasilar increased atten uation is present, hemidiaphragms are obscured. Heart is enlarged. Central vascularity is increased. There are overlying artifacts. Bones are stable. IMPRESSION: Correlate for congestive heart failure. There are likely associated effusions, pneumonia not excluded
--- NOTE | 2022-04-10 08:41 | P.PN ---
Subjective Progress Note Date: 04/10/22 On today's evaluation of 04/09/2022, the patient is being seen for a follow-up. He is a 56-year-old gentleman with known history of diastolic heart failure, COPD, chronic hypoxic and hypercapnic respiratory failure and the patient also has obstructive sleep apnea maintained on a BiPAP at a potential 20/16 cm of water along with oxygen at 2 L/m nasal cannula. The patient also has history of liquids. At this point in time, the patient is intubated on a mechanical ventilator for respiratory failure. The patient remains on propofol which is running at 40 mcg/kg/m. The patient is on a mechanical ventilator assist control mode with a rate of 26 with a tidal volume of 450 and FiO2 of 50% with a PEEP of 5. The chest x-ray from today was noted and the patient has adequate positioning of the orotracheal and orogastric tube. The chest x-ray from today is showing that she was back up pulmonary infiltrates and obvious back or pleural effusions. Based on a previous chest x-ray that was on today's ago, the chest x-ray findings are essentially unchanged. The patient had an echocardiogram during this current admission that was done on 04/06/2022 and echo showed a preserved LV function with an ejection fraction of 50-55%. There was no structural or valvular abnormalities noted. The blood work from today shows a white cell count of 9.0 with hemoglobin of 14.1 and a platelet count of 166. Sodium is 137, again is at 74 with a creatinine of 1.6 and a potassium level of 4.6 with a serum bicarb of 44. The patient's blood gas from today shows a pH of 7.38 with episodes of 59 and pO2 of 62. The patient is afebrile. Current cardiac rhythm is a chest fibrillation. The patient is slightly t achycardic. The patient's is on" initial liquids 5 mg by mouth twice a day. He remains on IV cefepime as a broad-spectrum of the cover antibiotic coverage in combination with vancomycin. He is also on no pressors for now. He is receiving enteral feeding for social support and is currently on vital high- protein at the rate of 40 mL an hour. He is on IV Lasix. The overall fluid balance over the past 24 hours has been +1.2 L. 04/10/2022, I'm seeing the patient for a follow-up. This morning, the patient remains on propofol at 45 mcg/kg/m. His adequately sedated and is calm and comfortable. The triple-lumen catheter was inserted yesterday into his left IJ. The chest x-ray from today showing stable pulmonary vascular congestion and moderate to large bilateral pleural effusions. Note that I started the patient on aggressive diuresis yesterday. He is currently on Lasix drip at 10 mg an hour and is also on Zaroxolyn. Overall fluid balance has been -8.7 L over the past 24 hours and the patient is producing excellent amount of urine output. He remains on a mechanical ventilator on assist control mode with a rate of 26, tidal volume of 450 mL, FiO2 of 50% with a PEEP of 5. The blood gas showed pH of 7.45 with a pCO2 of 62 and pO2 of 62. No major improvement in his oxygenati on as such. This is despite his ongoing diuresis. The patient clinically continues to have extensive multilevel edema both in the upper and lower extremities and the patient has significant scrotal edema. The BMs at 78 with a creatinine of 1.59 and the sodium level is at 139. The white cell count of 9.7 with a hemoglobin of 15 and platelet count of 154. The patient continues to receive vital high-protein at the rate of 58 mL an hour. Antibiotic coverage is with IV cefepime for now. Clinically, the patient is stable. He was given a sedation holiday yesterday. He arouses without adding any major difficulties and he follows simple commands. He is afebrile for now. He does not have COPD, chronic hypoxic respiratory failure, obstructive sleep apnea and diastolic heart failure. Objective - Vital Signs Vital signs: Vital Signs Temp 99.5 F 04/10/22 04:00 Pulse 108 H 04/10/22 07:45 Resp 26 H 04/10/22 07:00 BP 96/73 04/09/22 17:00 Pulse Ox 90 L 04/10/22 07:00 FiO2 50 04/10/22 07:21 Intake & Output 04/09/22 04/10/22 04/10/22 18:59 06:59 18:59 Intake Total 770.497 7517.290 84.913 Output Total 3160 8335 Balance -2265.164 -6522.710 84.913 Weight 165.7 kg 160.2 kg Intake: IV 253 399 0.9% Sodium Chloride 220 260 Cefepime 2 gm In Sodium 100 Chloride 0.9% 100 ml @ 25 mls/hr IVPB Q8HR [facility] Rx# :[id number] pressure bag 33 39 Intake, IV Titration 551.836 673.290 84.913 Amount Cefepime 2 gm In Sodium 100 Chloride 0.9% 100 ml @ 25 mls/hr IVPB Q12HR [facility] Rx #:[id number] Furosemide 100 mg In 168.167 Sodium Chloride 0.9% 90 ml @ 10 MG/HR 10 mls/hr IV .Q10H [facility] Rx#: [id number] propofoL 1,000 mg In 451.836 505.123 84.913 Empty Bag 1 bag @ 15 MCG/ KG/MIN 13.064 mls/hr IV . Q7H40M [facility] Rx#:[id number] Tube Feeding 90 650 Other 90 Output: Urine 3160 8335 Other: Voiding Method Indwelling Catheter Indwelling Catheter ABP, PAP, CO, CI - Last Documented Arterial Blood Pressure 124/55 - Exam No acute distress, sedated, with an orally placed endotracheal tube, and NG tube.. HEENT examination is grossly unremarkable. Neck supple. Full range of motion. No adenopathy thyromegaly or neck vein distention. Cardiovascular examination reveals an irregular rhythm and rate. S1-S2 normal. No S3 or S4. No discernible murmur noted. Lungs reveal bilateral coarse rhonchi, and crackles. Breath sounds equal bilaterally. No wheezes. Abdomen soft, with bowel sounds. No masses or tenderness. the patient has a significant scrotal edema that has gotten significantly worse during this current admission. Extremities are intact. Small left leg wound noted. No cyanosis or clubbing. Mild to moderate edema appreciated. Skin is without rash or lesion. Neurologic examination cannot be adequately assessed at this time. the patient is deeply sedated. The patient's sedation will be kept on 12 lower degree of sedation and in her neurologic examination will be done. - Labs CBC & Chem 7: 04/10/22 05:02 04/10/22 05:02 Labs: Abnormal Lab Results - Last 24 Hours (Table) 04/09/22 04/09/22 04/09/22 Range/Units 11:23 17:28 23:51 Neutrophils # (1.3-7.7) k/uL Lymphocytes # (1.0-4.8) k/uL ABG pCO2 (35-45) mmHg ABG pO2 (83-108) mmHg ABG HCO3 (21-25) mmol/L ABG Total CO2 (19-24) mmol/L ABG O2 Saturation (94-97) % Chloride (98-107) mmol/L Carbon Dioxide (22-30) mmol/L BUN (9-20) mg/dL Creatinine (0.66-1.25) mg/dL Glucose (74-99) mg/dL POC Glucose (mg/dL) 147 H 157 H 163 H (70-110) mg/dL Calcium (8.4-10.2) mg/dL 04/10/22 04/10/22 04/10/22 Range/Units 05:02 05:02 05:15 Neutrophils # 9.1 H (1.3-7.7) k/uL Lymphocytes # 0.1 L (1.0-4.8) k/uL ABG pCO2 62 H (35-45) mmHg ABG pO2 62 L (83-108) mmHg ABG HCO3 43 H* (21-25) mmol/L ABG Total CO2 45 H (19-24) mmol/L ABG O2 Saturation 90.9 L (94-97) % Chloride 89 L (98-107) mmol/L Carbon Dioxide 40 H (22-30) mmol/L BUN 78 H (9-20) mg/dL Creatinine 1.59 H (0.66-1.25) mg/dL Glucose 176 H (74-99) mg/dL POC Glucose (mg/dL) (70-110) mg/dL Calcium 8.0 L (8.4-10.2) mg/dL 04/10/22 Range/Units 05:47 Neutrophils # (1.3-7.7) k/uL Lymphocytes # (1.0-4.8) k/uL ABG pCO2 (35-45) mmHg ABG pO2 (83-108) mmHg ABG HCO3 (21-25) mmol/L ABG Total CO2 (19-24) mmol/L ABG O2 Saturation (94-97) % Chloride (98-107) mmol/L Carbon Dioxide (22-30) mmol/L BUN (9-20) mg/dL Creatinine (0.66-1.25) mg/dL Glucose (74-99) mg/dL POC Glucose (mg/dL) 168 H (70-110) mg/dL Calcium (8.4-10.2) mg/dL Microbiology - Last 24 Hours (Table) 04/05/22 15:29 Gram Stain - Preliminary Leg - Left Wound Culture - Preliminary Gram Neg Bacilli Methicillin resist S. aureus Enterococcus faecalis 04/05/22 15:18 Blood Culture - Preliminary Blood No Growth after 96 hours 04/05/22 15:18 Blood Culture - Preliminary Blood No Growth after 96 hours 04/06/22 19:50 Gram Stain - Final Sputum Sputum Culture - Final Assessment and Plan Plan: Acute hypoxemic respiratory failure secondary to acute diastolic congestive heart failure, and acute exacerbation of chronic obstructive pulmonary disease.the chest x-ray continues to show moderate to large bilateral pleural effusion in addition to significant amount of pulm congestion. This is probably a heart failure with preserved LV function. The patient continues to be in fluid overload and the diuresis has not been successful as the patient remains in a possible basilar the past 24 hours. Acute hypercapnic respiratory failure secondary to above. Atrial fibrillation with a rapid ventricular response, currently on a Cardizem drip, amiodarone drip, anticoagulated with Eliquis. Morbid obesity with a BMI of 50 kg/m2. Obstructive sleep apnea, maintained on BiPAP 20/16 along with 2 L of oxygen. Chronic obstructive pulmonary disease, oxygen dependent, FEV1 value 22% of predicted. Small left leg wound, with gram-negative bacilli/presumptive staph. Acute on chronic lower extremity edema secondary to right-sided heart failure/cor pulmonale. Former smoker. plan Continue mechanical ventilation support for today. No ventilator changes will be done Continue Lasix drip and drop it down to 5 mg an hour and continue Zaroxolyn 5 mg by mouth twice a day. Patient is producing excellent amount of urine output. We are headed towards a negative fluid balance. We'll monitor the I's and renal function Not ready for weaning as the patient is quite hypoxic still on 50% FiO2 with moderate-sized bilateral pleural effusion. We'll continue diuresis for another 24 hours Keep propofol for now Pro-calcitonin level was low Patient is on empiric antibiotic coverage with IV cefepime The family was updated We'll continue the supportive care Will make further recommendations based on his progress.Physical exam evaluation that was done more than 30 minutes. Time with Patient: Greater than 30
--- NOTE | 2022-04-10 08:57 | P.PN ---
Subjective Progress Note Date: 04/10/22 The patient is a 56-year-old male who presented to the hospital with worsening shortness of breath. He was initially admitted to [address] [place] [address] on BiPAP, and became hypoxic and was subsequently intubated. After intubation he developed A. fib with RVR. He was started on oral amiodarone and Cardizem drip, however the patient did not convert back to sinus rhythm. Yesterday amiodarone was discontinued and he was started on oral Cardizem for rate control. He remains in the 90s to low 100s for heart rate. GENERAL: Ill-appearing, obese male. Currently sedated on ventilator. NECK: Supple without JVD or thyromegaly. LUNGS: Breath sounds rhonchorous to auscultation bilaterally. Respiration equal and unlabored. Currently vented. HEART: Irregular rate and rhythm without murmurs, rubs or gallops. S1 and S2 h eard. EXTREMITIES: Normal range of motion, mild bilateral edema. No clubbing or cyanosis. Peripheral pulses intact and strong. VITALS: Blood pressure 118/60, heart rate 105, respiratory rate 26, SpO2 90% on 15 L FiO2 TELEMETRY: Atrial fibrillation with heart rates in the 90s LABS: WBC 9. 7, hemoglobin 15.0, hematocrit 47.0, platelet 154, sodium 139, potassium 4.5, BUN 78, creatinine 1.54 IMPRESSION: Atrial fibrillation, rate controlled Congestive heart failure, preserved ejection fraction COPD exacerbation, currently ventilated Elevated troponins, flat trend Morbid obesity, BMI 50 Venous stasis ulcer, positive for gram-negative bacilli History of atrial flutter, ablation 07/27/2021 PLAN: Continue diuresis as recommended by pulmonology Consider resuming carvedilol in the future Further recommendations based on clinical course I am dictating on behalf of Dr Carmine Dickerson's history/physical and assessment/plan. Objective - Vital Signs Vital signs: Vital Signs Temp 99.5 F 04/10/22 04:00 Pulse 108 H 04/10/22 07:45 Resp 26 H 04/10/22 07:00 BP 96/73 04/09/22 17:00 Pulse Ox 90 L 04/10/22 07:00 FiO2 50 04/10/22 07:21 Intake & Output 04/09/22 04/10/22 04/10/22 18:59 06:59 18:59 Intake Total 080.883 5413.290 84.913 Output Total 3160 8335 Balance -6995.164 -1915.710 84.913 Weight 165.7 kg 160.2 kg Intake: IV 253 399 0.9% Sodium Chloride 220 260 Cefepime 2 gm In Sodium 100 Chloride 0.9% 100 ml @ 25 mls/hr IVPB Q8HR [facility] Rx# :[id number] pressure bag 33 39 Intake, IV Titration 551.836 673.290 84.913 Amount Cefepime 2 gm In Sodium 100 Chloride 0.9% 100 ml @ 25 mls/hr IVPB Q12HR [facility] Rx #:[id number] Furosemide 100 mg In 168.167 Sodium Chloride 0.9% 90 ml @ 10 MG/HR 10 mls/hr IV .Q10H [facility] Rx#: [id number] propofoL 1,000 mg In 451.836 505.123 84.913 Empty Bag 1 bag @ 15 MCG/ KG/MIN 13.064 mls/hr IV . Q7H40M [facility] Rx#:[id number] Tube Feeding 90 650 Other 90 Output: Urine 3160 8335 Other: Voiding Method Indwelling Catheter Indwelling Catheter ABP, PAP, CO, CI - Last Documented Arterial Blood Pressure 124/55 - Labs CBC & Chem 7: 04/10/22 05:02 04/10/22 05:02 Labs: Abnormal Lab Results - Last 24 Hours (Table) 04/09/22 04/09/22 04/09/22 Range/Units 11:23 17:28 23:51 Neutrophils # (1.3-7.7) k/uL Lymphocytes # (1.0-4.8) k/uL ABG pCO2 (35-45) mmHg ABG pO2 (83-108) mmHg ABG HCO3 (21-25) mmol/L ABG Total CO2 (19-24) mmol/L ABG O2 Saturation (94-97) % Chloride (98-107) mmol/L Carbon Dioxide (22-30) mmol/L BUN (9-20) mg/dL Creatinine (0.66-1.25) mg/dL Glucose (74-99) mg/dL POC Glucose (mg/dL) 147 H 157 H 163 H (70-110) mg/dL Calcium (8.4-10.2) mg/dL 04/10/22 04/10/22 04/10/22 Range/Units 05:02 05:02 05:15 Neutrophils # 9.1 H (1.3-7.7) k/uL Lymphocytes # 0.1 L (1.0-4.8) k/uL ABG pCO2 62 H (35-45) mmHg ABG pO2 62 L (83-108) mmHg ABG HCO3 43 H* (21-25) mmol/L ABG Total CO2 45 H (19-24) mmol/L ABG O2 Saturation 90.9 L (94-97) % Chloride 89 L (98-107) mmol/L Carbon Dioxide 40 H (22-30) mmol/L BUN 78 H (9-20) mg/dL Creatinine 1.59 H (0.66-1.25) mg/dL Glucose 176 H (74-99) mg/dL POC Glucose (mg/dL) (70-110) mg/dL Calcium 8.0 L (8.4-10.2) mg/dL 04/10/22 Range/Units 05:47 Neutrophils # (1.3-7.7) k/uL Lymphocytes # (1.0-4.8) k/uL ABG pCO2 (35-45) mmHg ABG pO2 (83-108) mmHg ABG HCO3 (21-25) mmol/L ABG Total CO2 (19-24) mmol/L ABG O2 Saturation (94-97) % Chloride (98-107) mmol/L Carbon Dioxide (22-30) mmol/L BUN (9-20) mg/dL Creatinine (0.66-1.25) mg/dL Glucose (74-99) mg/dL POC Glucose (mg/dL) 168 H (70-110) mg/dL Calcium (8.4-10.2) mg/dL Microbiology - Last 24 Hours (Table) 04/05/22 15:29 Gram Stain - Preliminary Leg - Left Wound Culture - Preliminary Gram Neg Bacilli Methicillin resist S. aureus Enterococcus faecalis 04/05/22 15:18 Blood Culture - Preliminary Blood No Growth after 96 hours 04/05/22 15:18 Blood Culture - Preliminary Blood No Growth after 96 hours 04/06/22 19:50 Gram Stain - Final Sputum Sputum Culture - Final
[2022-04-10 11:28] LABS: Glucose,Whole Blood 154 mg/dL (70-110)
--- NOTE | 2022-04-10 12:44 | P.PN ---
Subjective Progress Note Date: 04/09/22 Principal diagnosis: Positive cultures left leg and possible cellulitis Patient is a 56-year-old male with a past medical history significant for COPD presenting to the hospital 4 days ago for evaluation of difficulty in breathing patient symptom has been going on for a couple of weeks before presentation to the hospital and the patient did have difficulty maintaining his O2 sats patient is not getting intubated also noticed to have swelling to the lower simply with some erythema and superficial ulceration culture was showing presented to MRSA and gram-negative on today's evaluation that is 04/09/2022, the patient is afebrile, the patient is hemodynamically stable not requiring any pressor support, patient FiO2 is currently down to 50%, no significant purulent secretions through the ET or any diarrhea was reported by the nursing staff Objective - Vital Signs Vital signs: Vital Signs Temp 98.2 F 04/09/22 00:00 Pulse 96 04/09/22 11:32 Resp 26 H 04/09/22 06:00 BP 96/73 04/07/22 22:00 Pulse Ox 89 L 04/09/22 06:00 FiO2 50 04/09/22 12:00 Intake & Output 04/08/22 04/09/22 04/09/22 18:59 06:59 18:59 Intake Total 2334.700 1831.638 490.929 Output Total 980 2245 1250 Balance 1354.700 -413.362 -759.071 Weight 165.7 kg 165.7 kg Intake: IV 1111.9 590 115 0.9% Sodium Chloride 190 120 100 Amiodarone 360 mg In 99.9 Dextrose 5% in Water 200 ml @ 1 MG/MIN 33.333 mls/ hr IV .Q6H [facility] Rx#: [id number] Cefepime 2 gm In Sodium 100 100 Chloride 0.9% 100 ml @ 25 mls/hr IVPB Q8HR [facility] Rx# :[id number] Diltiazem 125 mg In 135 Sodium Chloride 0.9% 100 ml @ 5 MG/HR 5 mls/hr IV .Q24H [facility] Rx#:[id number] Vancomycin 2,500 mg In 501 334 Sodium Chloride 0.9% 500 ml 500 ml @ 167 mls/hr IVPB Q16H [facility] Rx#: [id number] kefzol 50 pressure bag 36 36 15 Intake, IV Titration 402.800 461.638 285.929 Amount Cefepime 2 gm In Sodium 100 Chloride 0.9% 100 ml @ 25 mls/hr IVPB Q12HR [facility] Rx #:[id number] Diltiazem 125 mg In 125 83.667 Sodium Chloride 0.9% 100 ml @ 5 MG/HR 5 mls/hr IV .Q24H [facility] Rx#:[id number] propofoL 1,000 mg In 277.800 377.971 185.929 Empty Bag 1 bag @ 15 MCG/ KG/MIN 13.064 mls/hr IV . Q7H40M [facility] Rx#:[id number] Tube Feeding 520 480 90 Other 300 300 Output: Urine 930 2245 1250 Oral Regurgitation 50 Other: Voiding Method Indwelling Catheter Indwelling Catheter Indwelling Catheter ABP, PAP, CO, CI - Last Documented Arterial Blood Pressure 118/60 - Exam GENERAL DESCRIPTION: Middle-age male intubated on the vent RESPIRATORY SYSTEM: Unlabored breathing , decreased breath sounds at bases HEART: S1 S2 regular rate and rhythm , ABDOMEN: Soft , no tenderness EXTREMITIES: Diffuse swelling to bilateral lower extremity minimal erythema - Labs CBC & Chem 7: 04/10/22 05:02 04/10/22 05:02 Labs: Abnormal Lab Results - Last 24 Hours (Table) 04/08/22 04/08/22 04/09/22 Range/Units 18:05 23:27 05:05 Neutrophils # 9.3 H (1.3-7.7) k/uL Lymphocytes # 0.2 L (1.0-4.8) k/uL ABG pCO2 (35-45) mmHg ABG pO2 (83-108) mmHg ABG HCO3 (21-25) mmol/L ABG Total CO2 (19-24) mmol/L ABG O2 Saturation (94-97) % Chloride (98-107) mmol/L Carbon Dioxide (22-30) mmol/L BUN (9-20) mg/dL Creatinine (0.66-1.25) mg/dL Glucose (74-99) mg/dL POC Glucose (mg/dL) 169 H 159 H (70-110) mg/dL Calcium (8.4-10.2) mg/dL 04/09/22 04/09/22 04/09/22 Range/Units 05:05 05:10 05:25 Neutrophils # (1.3-7.7) k/uL Lymphocytes # (1.0-4.8) k/uL ABG pCO2 59 H (35-45) mmHg ABG pO2 62 L (83-108) mmHg ABG HCO3 35 H (21-25) mmol/L ABG Total CO2 37 H (19-24) mmol/L ABG O2 Saturation 90.9 L (94-97) % Chloride 95 L (98-107) mmol/L Carbon Dioxide 33 H (22-30) mmol/L BUN 74 H (9-20) mg/dL Creatinine 1.68 H (0.66-1.25) mg/dL Glucose 168 H (74-99) mg/dL POC Glucose (mg/dL) 172 H (70-110) mg/dL Calcium 8.1 L (8.4-10.2) mg/dL 04/09/22 Range/Units 11:23 Neutrophils # (1.3-7.7) k/uL Lymphocytes # (1.0-4.8) k/uL ABG pCO2 (35-45) mmHg ABG pO2 (83-108) mmHg ABG HCO3 (21-25) mmol/L ABG Total CO2 (19-24) mmol/L ABG O2 Saturation (94-97) % Chloride (98-107) mmol/L Carbon Dioxide (22-30) mmol/L BUN (9-20) mg/dL Creatinine (0.66-1.25) mg/dL Glucose (74-99) mg/dL POC Glucose (mg/dL) 147 H (70-110) mg/dL Calcium (8.4-10.2) mg/dL Microbiology - Last 24 Hours (Table) 04/05/22 15:18 Blood Culture - Preliminary Blood No Growth after 72 hours 04/05/22 15:18 Blood Culture - Preliminary Blood No Growth after 72 hours Assessment and Plan (1) Cellulitis Current Visit: Yes Status: Acute Code(s): L03.90 - CELLULITIS, UNSPECIFIED SNOMED Code(s): 983356580 Plan: 1patient presented to hospital with acute respiratory failure currently on the ventilator likely multifactorial in this patient with underlying COPD and not concerning for increased swelling to bilateral lower extremity and some superficial ulceration and redness concerning for possible cellulitis with local culture not showing gram-negative and present to MRSA. 2patient vancomycin has been discontinued by the pulmonary if the cultures especially sputum and the blood remains to be negative cefepime can also be discontinued Time with Patient: Less than 30
--- NOTE | 2022-04-10 12:45 | P.PN ---
Subjective Progress Note Date: 04/10/22 Principal diagnosis: Positive cultures left leg and possible cellulitis Patient is a 56-year-old male with a past medical history significant for COPD presenting to the hospital 4 days ago for evaluation of difficulty in breathing patient symptom has been going on for a couple of weeks before presentation to the hospital and the patient did have difficulty maintaining his O2 sats patient is not getting intubated also noticed to have swelling to the lower simply with some erythema and superficial ulceration culture was showing presented to MRSA and gram-negative on today's evaluation that is 04/10/2022, the patient did have a low-grade fever 100F this morning, the patient is hemodynamically stable not requiring any pressor support, patient FiO2 is currently stable at 50%, no significant purulent secretions through the ET or any diarrhea was reported by the nursing staff Objective - Vital Signs Vital signs: Vital Signs Temp 100.0 F H 04/10/22 08:00 Pulse 90 04/10/22: Resp 26 H 04/10/22 11:00 BP 96/73 04/09/22 17:00 Pulse Ox 90 L 04/10/22 11:00 FiO2 50 04/10/22 11:33 Intake & Output 04/09/22 04/10/22 04/10/22 18:59 06:59 18:59 Intake Total 231.990 5631.290 508.687 Output Total 3160 8335 2655 Balance -2265.164 -6522.710 -2146.313 Weight 165.7 kg 160.2 kg Intake: IV 253 399 115 0.9% Sodium Chloride 220 260 100 Cefepime 2 gm In Sodium 100 Chloride 0.9% 100 ml @ 25 mls/hr IVPB Q8HR [facility] Rx# :[id number] pressure bag 33 39 15 Intake, IV Titration 551.836 673.290 393.687 Amount Cefepime 2 gm In Sodium 100 100 Chloride 0.9% 100 ml @ 25 mls/hr IVPB Q12HR [facility] Rx #:[id number] Furosemide 100 mg In 168.167 29.667 Sodium Chloride 0.9% 90 ml @ 5 MG/HR 5 mls/hr IV .Q20H [facility] Rx#:[id number] propofoL 1,000 mg In 451.836 505.123 264.020 Empty Bag 1 bag @ 15 MCG/ KG/MIN 13.064 mls/hr IV . Q7H40M [facility] Rx#:[id number] Tube Feeding 90 650 Other 90 Output: Urine 3160 7670 2654 Other: Voiding Method Indwelling Catheter Indwelling Catheter Indwelling Catheter ABP, PAP, CO, CI - Last Documented Arterial Blood Pressure 118/62 - Exam GENERAL DESCRIPTION: Middle-age male intubated on the vent RESPIRATORY SYSTEM: Unlabored breathing , decreased breath sounds at bases HEART: S1 S2 regular rate and rhythm , ABDOMEN: Soft , no tenderness EXTREMITIES: Diffuse swelling to bilateral lower extremity minimal erythema - Labs CBC & Chem 7: 04/10/22 05:02 04/10/22 05:02 Labs: Abnormal Lab Results - Last 24 Hours (Table) 04/09/22 04/09/22 04/10/22 Range/Units 17:28 23:51 05:02 Neutrophils # 9.1 H (1.3-7.7) k/uL Lymphocytes # 0.1 L (1.0-4.8) k/uL ABG pCO2 (35-45) mmHg ABG pO2 (83-108) mmHg ABG HCO3 (21-25) mmol/L ABG Total CO2 (19-24) mmol/L ABG O2 Saturation (94-97) % Chloride (98-107) mmol/L Carbon Dioxide (22-30) mmol/L BUN (9-20) mg/dL Creatinine (0.66-1.25) mg/dL Glucose (74-99) mg/dL POC Glucose (mg/dL) 157 H 163 H (70-110) mg/dL Calcium (8.4-10.2) mg/dL 04/10/22 04/10/22 04/10/22 Range/Units 05:02 05:15 05:47 Neutrophils # (1.3-7.7) k/uL Lymphocytes # (1.0-4.8) k/uL ABG pCO2 62 H (35-45) mmHg ABG pO2 62 L (83-108) mmHg ABG HCO3 43 H* (21-25) mmol/L ABG Total CO2 45 H (19-24) mmol/L ABG O2 Saturation 90.9 L (94-97) % Chloride 89 L (98-107) mmol/L Carbon Dioxide 40 H (22-30) mmol/L BUN 78 H (9-20) mg/dL Creatinine 1.59 H (0.66-1.25) mg/dL Glucose 176 H (74-99) mg/dL POC Glucose (mg/dL) 168 H (70-110) mg/dL Calcium 8.0 L (8.4-10.2) mg/dL 04/10/22 Range/Units 11:26 Neutrophils # (1.3-7.7) k/uL Lymphocytes # (1.0-4.8) k/uL ABG pCO2 (35-45) mmHg ABG pO2 (83-108) mmHg ABG HCO3 (21-25) mmol/L ABG Total CO2 (19-24) mmol/L ABG O2 Saturation (94-97) % Chloride (98-107) mmol/L Carbon Dioxide (22-30) mmol/L BUN (9-20) mg/dL Creatinine (0.66-1.25) mg/dL Glucose (74-99) mg/dL POC Glucose (mg/dL) 154 H (70-110) mg/dL Calcium (8.4-10.2) mg/dL Microbiology - Last 24 Hours (Table) 04/05/22 15:29 Gram Stain - Preliminary Leg - Left Wound Culture - Preliminary Gram Neg Bacilli Methicillin resist S. aureus Enterococcus faecalis 04/05/22 15:18 Blood Culture - Preliminary Blood No Growth after 96 hours 04/05/22 15:18 Blood Culture - Preliminary Blood No Growth after 96 hours 04/06/22 19:50 Gram Stain - Final Sputum Sputum Culture - Final Assessment and Plan (1) Cellulitis Current Visit: Yes Status: Acute Code(s): L03.90 - CELLULITIS, UNSPECIFIED SNOMED Code(s): 855817149 Plan: 1patient presented to hospital with acute respiratory failure currently on the ventilator likely multifactorial in this patient with underlying COPD and not concerning for increased swelling to bilateral lower extremity and some superficial ulceration and redness concerning for possible cellulitis with local culture not showing gram-negative and present to MRSA. 2patient did have improvement in bilateral lower extremity swelling and redness however the patient did have a new fever just slightly concerning we will go ahead and repeat his cultures and may continue with empiric cefepime Time with Patient: Less than 30
--- NOTE | 2022-04-10 16:12 | P.PN ---
Subjective Progress Note Date: 04/10/22 This is a 56-year-old male who is being monitored in the intensive care unit secondary to acute hypoxic respiratory failure as well as acute CHF exacerbation. Patient found to be in atrial fibrillation with rapid ventricular rate post intubation. The patient is currently intubated with FiO2 50%, current oxygen saturations 89%. Cardizem gtt weaned yesterday, he is on oral cardizem. Chest x-ray this morning showing pulmonary vascular congestion and bilateral pleural effusions correlate for congestive heart failure. Sodium stable at 137, creatinine is trending down at 1.68, peaked yesterday at 1.74. Infectious disease has been consulted for wound cultures positive for presumptive MRSA and gram negative bacilli to the left leg and is currently maintained on IV cefepime and IV vancomycin pending finalized cultures. He continues on IV Lasix every 12, IV steroids 60 every 6 hours. 04/10/2022 Patient continues to be monitored in intensive care unit, on mechanical ventilator with FiO2 of 50%. Remains tachycardic in the 110-120s. He also had temperature of 100 this morning. Chest xray today showing congestive heart failure with likely associated effusions. Pneumonia not excluded. Patient start ed on lasix gtt yesterday afternoon, he has total of 3.8 L off in the last 24 hours, He is down 5 kg since yesterday, overall his weight is up since admission. Creatinine has improved today 1.59. Cultures are being repeated with concern of fever. He is being followed closely by pulmonary, cardiology, infectious disease. Unable to complete review of systems as patient is currently intubated in ICU PHYSICAL EXAMINATION: GENERAL: Patient is currently maintained on mechanical ventilator, intubated. Well developed, well nourished. Obese. HEENT: Pupils are round and equally reacting to light. EOMI. No scleral icterus. No conjunctival pallor. Normocephalic, atraumatic. No pharyngeal erythema. No thyromegaly. CARDIOVASCULAR: S1 and S2 present. Irregular rate and rhythm. No murmurs, rubs, or gallops. PULMONARY: Chest is clear to auscultation, no wheezing or crackles. ABDOMEN: Soft, nontender, distended, normoactive bowel sounds. No palpable organomegaly. MUSCULOSKELETAL: No joint swelling or deformity. EXTREMITIES: No cyanosis, clubbing. Peripheral edema pittting upper and lower extremity, bilaterally. NEUROLOGICAL: Unable to complete full neurological exam patient is currently int ubated. SKIN: No rashes. Assessment plan Assessment Acute hypoxic respiratory failure secondary to acute diastolic CHF exacerbation and acute COPD exacerbation currently on mechanical ventilator with FiO2 of 50% Atrial fibrillation rate controlled Hypertension Obstructive sleep apnea History of COPD, oxygen dependent History atrial flutter previous ablation Left lower extremity ulceration and possible cellulitis with culture showing presumptive MRSA/gram neg bacili Chronic lower extremity edema Former Smoker GI Prophylaxis Protonix DVT Prophylaxis Eliquis Full Code Plan Patient is monitored closely in ICU currently on mechanical ventilator Continues on empiric antibiotics Patient continues on lasix gtt, strict intake and output Currently maintained off pressor support, cardiology considering resuming carvedilol. Continues on IV steroids, bronchodilators Pending finalized wound culture On enteral tube feedings Continues on oral cardizem, oral amidarone discontinued Cardiology, pulmonary manager wholesale consultation Repeat BMP in AM The impression and plan of care has been dictated by Meri Galvan, Nurse Practitioner as directed. Dr. Denisse MD I have performed a history and physical examination and medical decision making of this patient, discussed the same with the dictator, and agree with the dictators assessment and plan as written, documented as a scribe. Based on total visit time, I have performed more than 50% of this visit. Objective - Vital Signs Vital signs: Vital Signs Temp 99.7 F H 04/10/22 12:00 Pulse 120 H 04/10/22 15:31 Resp 26 H 04/10/22 15:00 BP 96/73 04/09/22 17:00 Pulse Ox 91 L 04/10/22 15:00 FiO2 50 04/10/22 15:27 Intake & Output 04/09/22 04/10/22 04/10/22 18:59 06:59 18:59 Intake Total 840.893 1944.290 681.035 Output Total 3160 8377 8418 Balance -5736.164 -22.710 -0533.965 Weight 165.7 kg 160.2 kg Intake: IV 253 399 193 0.9% Sodium Chloride 220 260 160 Cefepime 2 gm In Sodium 100 Chloride 0.9% 100 ml @ 25 mls/hr IVPB Q8HR [facility] Rx# :[id number] pressure bag 33 39 33 Intake, IV Titration 551.836 673.290 488.035 Amount Cefepime 2 gm In Sodium 100 100 Chloride 0.9% 100 ml @ 25 mls/hr IVPB Q12HR [facility] Rx #:[id number] Furosemide 100 mg In 168.167 29.667 Sodium Chloride 0.9% 90 ml @ 5 MG/HR 5 mls/hr IV .Q20H [facility] Rx#:[id number] propofoL 1,000 mg In 451.836 505.123 358.368 Empty Bag 1 bag @ 15 MCG/ KG/MIN 13.064 mls/hr IV . Q7H40M [facility] Rx#:[id number] Tube Feeding 90 650 Other 90 Output: Urine 3160 8393 3705 Other: Voiding Method Indwelling Catheter Indwelling Catheter Indwelling Catheter ABP, PAP, CO, CI - Last Documented Arterial Blood Pressure 138/65 - Labs CBC & Chem 7: 04/10/22 05:02 04/10/22 05:02 Labs: Abnormal Lab Results - Last 24 Hours (Table) 04/09/22 04/09/22 04/10/22 Range/Units 17:28 23:51 05:02 Neutrophils # 9.1 H (1.3-7.7) k/uL Lymphocytes # 0.1 L (1.0-4.8) k/uL ABG pCO2 (35-45) mmHg ABG pO2 (83-108) mmHg ABG HCO3 (21-25) mmol/L ABG Total CO2 (19-24) mmol/L ABG O2 Saturation (94-97) % Chloride (98-107) mmol/L Carbon Dioxide (22-30) mmol/L BUN (9-20) mg/dL Creatinine (0.66-1.25) mg/dL Glucose (74-99) mg/dL POC Glucose (mg/dL) 157 H 163 H (70-110) mg/dL Calcium (8.4-10.2) mg/dL 04/10/22 04/10/22 04/10/22 Range/Units 05:02 05:15 05:47 Neutrophils # (1.3-7.7) k/uL Lymphocytes # (1.0-4.8) k/uL ABG pCO2 62 H (35-45) mmHg ABG pO2 62 L (83-108) mmHg ABG HCO3 43 H* (21-25) mmol/L ABG Total CO2 45 H (19-24) mmol/L ABG O2 Saturation 90.9 L (94-97) % Chloride 89 L (98-107) mmol/L Carbon Dioxide 40 H (22-30) mmol/L BUN 78 H (9-20) mg/dL Creatinine 1.59 H (0.66-1.25) mg/dL Glucose 176 H (74-99) mg/dL POC Glucose (mg/dL) 168 H (70-110) mg/dL Calcium 8.0 L (8.4-10.2) mg/dL 04/10/22 Range/Units 11:26 Neutrophils # (1.3-7.7) k/uL Lymphocytes # (1.0-4.8) k/uL ABG pCO2 (35-45) mmHg ABG pO2 (83-108) mmHg ABG HCO3 (21-25) mmol/L ABG Total CO2 (19-24) mmol/L ABG O2 Saturation (94-97) % Chloride (98-107) mmol/L Carbon Dioxide (22-30) mmol/L BUN (9-20) mg/dL Creatinine (0.66-1.25) mg/dL Glucose (74-99) mg/dL POC Glucose (mg/dL) 154 H (70-110) mg/dL Calcium (8.4-10.2) mg/dL Microbiology - Last 24 Hours (Table) 04/05/22 15:29 Gram Stain - Preliminary Leg - Left Wound Culture - Preliminary Gram Neg Bacilli Methicillin resist S. aureus Enterococcus faecalis 04/05/22 15:18 Blood Culture - Preliminary Blood No Growth after 96 hours 04/05/22 15:18 Blood Culture - Preliminary Blood No Growth after 96 hours 04/06/22 19:50 Gram Stain - Final Sputum Sputum Culture - Final Assessment and Plan Time with Patient: Less than 30
[2022-04-10 17:30] LABS: Glucose,Whole Blood 160 mg/dL (70-110)
[2022-04-10 23:21] LABS: Glucose,Whole Blood 185 mg/dL (70-110)
[2022-04-11] MEDS: IPRATROPIUM-ALBUTEROL 3 ML NEB INHALATION SCH ×6 (00:17→19:52)
[2022-04-11] MEDS: FUROSEMIDE 100 MG in SODIUM CHLORIDE 0.9% 90 ML IV SCH ×2 (00:49→20:03)
[2022-04-11] MEDS: HYDROmorphone 1 MG/ML 1 ML SYRINGE IVP PRN ×2 (01:24→20:06)
[2022-04-11 04:58] LABS: Basophils % (A) 0 %; Eosinophils % (A) 0 %; HCT 49.8 % (39.0-53.0); HGB 15.6 gm/dL (13.0-17.5); Hypochromasia Moderate; Lymphocytes # (A) 0.2 k/uL (1.0-4.8); Lymphocytes % (A) 2 %; MCH 28.2 pg (25.0-35.0); MCHC 31.3 g/dL (31.0-37.0); MCV 90.1 fL (80.0-100.0); Mean Platelet Volume 9.1; Monocytes # (A) 0.4 k/uL (0-1.0); Monocytes % (A) 4 %; Neutrophils # (A) 9.9 k/uL (1.3-7.7); Neutrophils % (A) 94 %; Platelet Count 136 k/uL (150-450); RBC 5.53 m/uL (4.30-5.90); RDW 14.3 % (11.5-15.5); WBC 10.6 k/uL (3.8-10.6)
[2022-04-11 05:09] LABS: Calcium 8.6 mg/dL (8.4-10.2); Potassium 3.9 mmol/L (3.5-5.1)
[2022-04-11 05:37] LABS: Glucose,Whole Blood 195 mg/dL (70-110)
[2022-04-11] MEDS: methylPREDNISolone SOD SUCCI 125 MG/2 ML VIAL IV SCH (05:52)
[2022-04-11] MEDS: INSULIN ASPART (NovoLOG) 100 UNIT/ML VIAL SQ SCH ×7 (05:52→23:38)
[2022-04-11 05:54] LABS: ABG Oxygen Saturation 91.7 % (94-97); ABG PCO2 67 mmHg (35-45); ABG PH 7.47 (7.35-7.45); ABG PO2 65 mmHg (83-108); ABG TCO2 51 mmol/L (19-24); Allen Test Performed? Yes
[2022-04-11 05:57] LABS: ABG HCO3 49 mmol/L (21-25)
--- NOTE | 2022-04-11 07:59 | XR ---
EXAMINATION TYPE: XR chest 1V portable DATE OF EXAM: 04/11/2022 Comparison: 04/10/2022 Clinical History: 56-year-old male Tube placement Findings: ET tube tip at the level of the medial clavicular heads. NG tube courses below the diaphragm. Left CV C tip at the mid to lower SVC level. Heart remains enlarged. Interstitial/vascular prominence remains . Ongoing moderate, partially layering bilateral pleural effusions with bibasilar opacities. Levoconv ex curvature upper lumbar spine. Impression: Continued cardiomegaly with pulmonary vascular congestion. Continued partially layering moderate effu sions with adjacent atelectasis and/or consolidation.
--- NOTE | 2022-04-11 08:45 | P.PN ---
Subjective Progress Note Date: 04/11/22 On today's evaluation of 04/09/2022, the patient is being seen for a follow-up. He is a 56-year-old gentleman with known history of diastolic heart failure, COPD, chronic hypoxic and hypercapnic respiratory failure and the patient also has obstructive sleep apnea maintained on a BiPAP at a potential 20/16 cm of water along with oxygen at 2 L/m nasal cannula. The patient also has history of liquids. At this point in time, the patient is intubated on a mechanical ventilator for respiratory failure. The patient remains on propofol which is running at 40 mcg/kg/m. The patient is on a mechanical ventilator assist control mode with a rate of 26 with a tidal volume of 450 and FiO2 of 50% with a PEEP of 5. The chest x-ray from today was noted and the patient has adequate positioning of the orotracheal and orogastric tube. The chest x-ray from today is showing that she was back up pulmonary infiltrates and obvious back or pleural effusions. Based on a previous chest x-ray that was on today's ago, the chest x-ray findings are essentially unchanged. The patient had an echocardiogram during this current admission that was done on 04/06/2022 and echo showed a preserved LV function with an ejection fraction of 50-55%. There was no structural or valvular abnormalities noted. The blood work from today shows a white cell count of 9.0 with hemoglobin of 14.1 and a platelet count of 166. Sodium is 137, again is at 74 with a creatinine of 1.6 and a potassium level of 4.6 with a serum bicarb of 44. The patient's blood gas from today shows a pH of 7.38 with episodes of 59 and pO2 of 62. The patient is afebrile. Current cardiac rhythm is a chest fibrillation. The patient is slightly t achycardic. The patient's is on" initial liquids 5 mg by mouth twice a day. He remains on IV cefepime as a broad-spectrum of the cover antibiotic coverage in combination with vancomycin. He is also on no pressors for now. He is receiving enteral feeding for social support and is currently on vital high- protein at the rate of 40 mL an hour. He is on IV Lasix. The overall fluid balance over the past 24 hours has been +1.2 L. 04/10/2022, I'm seeing the patient for a follow-up. This morning, the patient remains on propofol at 45 mcg/kg/m. His adequately sedated and is calm and comfortable. The triple-lumen catheter was inserted yesterday into his left IJ. The chest x-ray from today showing stable pulmonary vascular congestion and moderate to large bilateral pleural effusions. Note that I started the patient on aggressive diuresis yesterday. He is currently on Lasix drip at 10 mg an hour and is also on Zaroxolyn. Overall fluid balance has been -8.7 L over the past 24 hours and the patient is producing excellent amount of urine output. He remains on a mechanical ventilator on assist control mode with a rate of 26, tidal volume of 450 mL, FiO2 of 50% with a PEEP of 5. The blood gas showed pH of 7.45 with a pCO2 of 62 and pO2 of 62. No major improvement in his oxygenati on as such. This is despite his ongoing diuresis. The patient clinically continues to have extensive multilevel edema both in the upper and lower extremities and the patient has significant scrotal edema. The BMs at 78 with a creatinine of 1.59 and the sodium level is at 139. The white cell count of 9.7 with a hemoglobin of 15 and platelet count of 154. The patient continues to receive vital high-protein at the rate of 58 mL an hour. Antibiotic coverage is with IV cefepime for now. Clinically, the patient is stable. He was given a sedation holiday yesterday. He arouses without adding any major difficulties and he follows simple commands. He is afebrile for now. He does not have COPD, chronic hypoxic respiratory failure, obstructive sleep apnea and diastolic heart failure. 04/11/2022, the patient remains sedated this morning on propofol running at 50 mcg/kg/m. I continue to aggressively diurese this patient. Urine output for yesterday was 11 L and over the past 24 hours was 8.7 L. Net fluid balance remains negative. The edema is improving in his legs and in his arms and his scrotum. His chest x-ray however is still showing moderate-sized bilateral pleural effusion. He remains on a mechanical ventilator on assist control mode with a rate of 26 with a tidal volume of 450 and FiO2 of 50% with a PEEP of 5. Morning blood gases showed day pH of 7.47 with a pCO2 of 67 and pO2 of 65. The patient's sodium levels of 138, potassium is 3.9, BUN is at 87 with a creatinine of 1.7 and his CVP is 10. The patient is afebrile. The patient is hemodynamically stable. He remains in atrial fibrillation and the latest slightly tachycardic this morning. He remains on anticoagulation with eloquent 5 mg by mouth twice a day. Enteral feeding is in the form of vital high-protein at 58 cc/ hour. He is covered with IV antibiotics on an empiric basis and the patient is currently on IV cefepime. The patient remains on Lasix drip 5 mg an hour. He is also Zaroxolyn 5 mg by mouth twice a day. He remains on bronchodilators and steroids. Objective - Vital Signs Vital signs: Vital Signs Temp 98.9 F 04/11/22 08:00 Pulse 106 H 04/11/22 08:07 Resp 26 H 04/11/22 08:00 BP 96/73 04/09/22 17:00 Pulse Ox 91 L 04/11/22 08:00 FiO2 50 04/11/22 08:00 Intake & Output 04/10/22 04/11/22 04/11/22 18:59 06:59 18:59 Intake Total 216.286 8779.664 148 Output Total 5475 3300 700 Balance -4645.945 -1806.336 -552 Weight 153.1 kg Intake: IV 177 176 32 0.9% Sodium Chloride 120 110 20 CVP Pressure Bag 33 6 pressure bag 57 33 6 Intake, IV Titration 652.055 589.664 Amount Cefepime 2 gm In Sodium 100 Chloride 0.9% 100 ml @ 25 mls/hr IVPB Q12HR [facility] Rx #:[id number] Furosemide 100 mg In 29.667 70.333 Sodium Chloride 0.9% 90 ml @ 5 MG/HR 5 mls/hr IV .Q20H [facility] Rx#:[id number] propofoL 1,000 mg In 522.388 519.331 Empty Bag 1 bag @ 15 MCG/ KG/MIN 13.064 mls/hr IV . Q7H40M [facility] Rx#:[id number] Tube Feeding 638 116 Other 90 Output: Urine 5475 3300 700 Other: Voiding Method Indwelling Catheter Indwelling Catheter ABP, PAP, CO, CI - Last Documented Arterial Blood Pressure 127/73 - Exam No acute distress, sedated, with an orally placed endotracheal tube, and NG tube.. HEENT examination is grossly unremarkable. Neck supple. Full range of motion. No adenopathy thyromegaly or neck vein distention. Cardiovascular examination reveals an irregular rhythm and rate. S1-S2 normal. No S3 or S4. No discernible murmur noted. Lungs reveal bilateral coarse rhonchi, and crackles. Breath sounds equal bilaterally. No wheezes. Abdomen soft, with bowel sounds. No masses or tenderness. the patient has a significant scrotal edema that has gotten significantly worse during this current admission. Extremities are intact. Small left leg wound noted. No cyanosis or clubbing. Mild to moderate edema appreciated. Skin is without rash or lesion. Neurologic examination cannot be adequately assessed at this time. the patient is deeply sedated. The patient's sedation will be kept on 12 lower degree of sedation and in her neurologic examination will be done. - Labs CBC & Chem 7: 04/11/22 04:25 04/11/22 04:25 Labs: Abnormal Lab Results - Last 24 Hours (Table) 04/10/22 04/10/22 04/10/22 Range/Units 11:26 17:28 23:19 Plt Count (150-450) k/uL Neutrophils # (1.3-7.7) k/uL Lymphocytes # (1.0-4.8) k/uL ABG pH (7.35-7.45) ABG pCO2 (35-45) mmHg ABG pO2 (83-108) mmHg ABG HCO3 (21-25) mmol/L ABG Total CO2 (19-24) mmol/L ABG O2 Saturation (94-97) % Chloride (98-107) mmol/L Carbon Dioxide (22-30) mmol/L BUN (9-20) mg/dL Creatinine (0.66-1.25) mg/dL Glucose (74-99) mg/dL POC Glucose (mg/dL) 154 H 160 H 185 H (70-110) mg/dL 04/11/22 04/11/22 04/11/22 Range/Units 04:25 04:25 05:36 Plt Count 136 L (150-450) k/uL Neutrophils # 9.9 H (1.3-7.7) k/uL Lymphocytes # 0.2 L (1.0-4.8) k/uL ABG pH (7.35-7.45) ABG pCO2 (35-45) mmHg ABG pO2 (83-108) mmHg ABG HCO3 (21-25) mmol/L ABG Total CO2 (19-24) mmol/L ABG O2 Saturation (94-97) % Chloride 83 L (98-107) mmol/L Carbon Dioxide 41 H* (22-30) mmol/L BUN 87 H (9-20) mg/dL Creatinine 1.71 H (0.66-1.25) mg/dL Glucose 215 H (74-99) mg/dL POC Glucose (mg/dL) 195 H (70-110) mg/dL 04/11/22 Range/Units 05:52 Plt Count (150-450) k/uL Neutrophils # (1.3-7.7) k/uL Lymphocytes # (1.0-4.8) k/uL ABG pH 7.47 H (7.35-7.45) ABG pCO2 67 H (35-45) mmHg ABG pO2 65 L (83-108) mmHg ABG HCO3 49 H* (21-25) mmol/L ABG Total CO2 51 H (19-24) mmol/L ABG O2 Saturation 91.7 L (94-97) % Chloride (98-107) mmol/L Carbon Dioxide (22-30) mmol/L BUN (9-20) mg/dL Creatinine (0.66-1.25) mg/dL Glucose (74-99) mg/dL POC Glucose (mg/dL) (70-110) mg/dL Microbiology - Last 24 Hours (Table) 04/10/22 15:45 Sputum Culture - Preliminary Sputum 04/05/22 15:18 Blood Culture - Preliminary Blood No Growth after 120 hours 04/05/22 15:18 Blood Culture - Preliminary Blood No Growth after 120 hours Assessment and Plan Plan: Acute hypoxemic respiratory failure secondary to acute diastolic congestive heart failure, and acute exacerbation of chronic obstructive pulmonary disease.the chest x-ray continues to show moderate to large bilateral pleural effusion in addition to significant amount of pulm congestion. This is probably a heart failure with preserved LV function. The patient continues to be in fluid overload and the diuresis has not been successful and he remains on Lasix drip and Zaroxolyn with excellent urine output and the fluid balance is neg ative. He has been tolerating diuresis while, hemodynamically stable, no hypotension, renal function remains also relatively stable. Acute hypercapnic respiratory failure secondary to above. Atrial fibrillation with a rapid ventricular response, currently on a Cardizem drip, amiodarone drip, anticoagulated with Eliquis. Morbid obesity with a BMI of 50 kg/m2. Obstructive sleep apnea, maintained on BiPAP 20/16 along with 2 L of oxygen. Chronic obstructive pulmonary disease, oxygen dependent, FEV1 value 22% of predicted. Small left leg wound, with gram-negative bacilli/presumptive staph. Acute on chronic lower extremity edema secondary to right-sided heart failure/cor pulmonale. Former smoker. plan Continue mechanical ventilation support for today. Stop sedation and check the patient's readiness to wean and assessment and parameters. This will be working progress during the day. If the weaning parameters are adequate, I may be able to give the patient is participating child and consider extubating him to a BiPAP. Continue Lasix drip and drop it down to 5 mg an hour and continue Zaroxolyn 5 mg by mouth twice a day. Patient is producing excellent amount of urine output. We are headed towards a negative fluid balance. We'll monitor the I's and renal function Not ready for weaning as the patient is quite hypoxic still on 50% FiO2 with moderate-sized bilateral pleural effusion. We'll continue diuresis for another 24 hours Pro-calcitonin level was low Patient is on empiric antibiotic coverage with IV cefepime The family was updated We'll continue the supportive care Will make further recommendations based on his progress.Physical exam evaluation that was done more than 30 minutes. Time with Patient: Greater than 30
[2022-04-11] MEDS: CHLORHEXIDINE GLUCONATE 15 ML CUP MUCOUS MEM SCH (10:44)
[2022-04-11] MEDS: DILTIAZEM ORAL 60 MG TAB PO SCH ×2 (10:44→20:03)
[2022-04-11] MEDS: NITROGLYCERIN OINT 1 INCH/GM PACKET TOPICAL SCH ×4 (10:44→22:22)
[2022-04-11] MEDS: APIXABAN 5 MG TAB PO SCH ×2 (10:44→20:03)
[2022-04-11] MEDS: metOLazone 5 MG TAB PO SCH ×2 (10:45→20:03)
--- NOTE | 2022-04-11 10:45 | P.PN ---
Subjective Progress Note Date: 04/11/22 The patient is a 56-year-old male who presented to the hospital with worsening shortness of breath. He was initially admitted to [address] [place] [address] on BiPAP, and became hypoxic and was subsequently intubated. After intubation he developed A. fib with RVR. He was started on oral amiodarone and Cardizem drip, however the patient did not convert back to sinus rhythm. The patient is being diuresed via pulmonology. He continues to have a moderate sized pleural effusions. It is recommended that he continue diuresis for an additional 24 hours. GENERAL: Ill-appearing, obese male. Currently sedated on ventilator. NECK: Supple without JVD or thyromegaly. LUNGS: Breath sounds diminished to auscultation bilaterally. Respiration equal and unlabored. Currently vented. HEART: Irregular rate and rhythm without murmurs, rubs or gallops. S1 and S2 heard. EXTREMITIES: Normal range of motion, +2 bilateral edema. Scrotal edema. No clubbing or cyanosis. Peripheral pulses intact and strong. VITALS: Blood pressure 124/73, heart rate 106, respiratory rate 25, SpO2 91% on 50% FiO2 TELEMETRY: Atrial fibrillation with heart rates in the 90s LABS: WBC 10.6, hemoglobin 15.6, hematocrit 49.8, platelet 136, sodium 138, potassium 3.9, BUN 87, creatinine 1.71 IMPRESSION: Atrial fibrillation, rate controlled, on anticoagulation Congestive heart failure, preserved ejection fraction COPD exacerbation, currently ventilated Elevated troponins, flat trend Morbid obesity, BMI 50 Venous stasis ulcer, positive for gram-negative bacilli History of atrial flutter, ablation 07/27/2021 PLAN: Continue diuresis as recommended by pulmonology Heart rates remain elevated after extubation, consider increasing diltiazem Further recommendations based on clinical course I am dictating on behalf of Dr Carmine Dickerson's history/physical and assessment/plan. Objective - Vital Signs Vital signs: Vital Signs Temp 98.9 F 04/11/22 08:00 Pulse 128 H 04/11/22 09:00 Resp 26 H 04/11/22 09:00 BP 96/73 04/09/22 17:00 Pulse Ox 91 L 04/11/22 09:00 FiO2 50 04/11/22 09:00 Intake & Output 04/10/22 04/11/22 04/11/22 18:59 06:59 18:59 Intake Total 068.822 7677.664 222 Output Total 5475 3300 1050 Balance -4645.945 -1806.336 -828 Weight 153.1 kg Intake: IV 177 176 48 0.9% Sodium Chloride 120 110 30 CVP Pressure Bag 33 9 pressure bag 57 33 9 Intake, IV Titration 652.055 589.664 Amount Cefepime 2 gm In Sodium 100 Chloride 0.9% 100 ml @ 25 mls/hr IVPB Q12HR [facility] Rx #:[id number] Furosemide 100 mg In 29.667 70.333 Sodium Chloride 0.9% 90 ml @ 5 MG/HR 5 mls/hr IV .Q20H [facility] Rx#:[id number] propofoL 1,000 mg In 522.388 519.331 Empty Bag 1 bag @ 15 MCG/ KG/MIN 13.064 mls/hr IV . Q7H40M [facility] Rx#:[id number] Tube Feeding 638 174 Other 90 Output: Urine 5475 3300 1050 Other: Voiding Method Indwelling Catheter Indwelling Catheter ABP, PAP, CO, CI - Last Documented Arterial Blood Pressure 124/73 - Labs CBC & Chem 7: 04/11/22 04:25 04/11/22 04:25 Labs: Abnormal Lab Results - Last 24 Hours (Table) 04/10/22 04/10/22 04/10/22 Range/Units 11:26 17:28 23:19 Plt Count (150-450) k/uL Neutrophils # (1.3-7.7) k/uL Lymphocytes # (1.0-4.8) k/uL ABG pH (7.35-7.45) ABG pCO2 (35-45) mmHg ABG pO2 (83-108) mmHg ABG HCO3 (21-25) mmol/L ABG Total CO2 (19-24) mmol/L ABG O2 Saturation (94-97) % Chloride (98-107) mmol/L Carbon Dioxide (22-30) mmol/L BUN (9-20) mg/dL Creatinine (0.66-1.25) mg/dL Glucose (74-99) mg/dL POC Glucose (mg/dL) 154 H 160 H 185 H (70-110) mg/dL 1004/11/22 04/11/22 Range/Units 04:25 04:25 05:36 Plt Count 136 L (150-450) k/uL Neutrophils # 9.9 H (1.3-7.7) k/uL Lymphocytes # 0.2 L (1.0-4.8) k/uL ABG pH (7.35-7.45) ABG pCO2 (35-45) mmHg ABG pO2 (83-108) mmHg ABG HCO3 (21-25) mmol/L ABG Total CO2 (19-24) mmol/L ABG O2 Saturation (94-97) % Chloride 83 L (98-107) mmol/L Carbon Dioxide 41 H* (22-30) mmol/L BUN 87 H (9-20) mg/dL Creatinine 1.71 H (0.66-1.25) mg/dL Glucose 215 H (74-99) mg/dL POC Glucose (mg/dL) 195 H (70-110) mg/dL 04/11/22 Range/Units 05:52 Plt Count (150-450) k/uL Neutrophils # (1.3-7.7) k/uL Lymphocytes # (1.0-4.8) k/uL ABG pH 7.47 H (7.35-7.45) ABG pCO2 67 H (35-45) mmHg ABG pO2 65 L (83-108) mmHg ABG HCO3 49 H* (21-25) mmol/L ABG Total CO2 51 H (19-24) mmol/L ABG O2 Saturation 91.7 L (94-97) % Chloride (98-107) mmol/L Carbon Dioxide (22-30) mmol/L BUN (9-20) mg/dL Creatinine (0.66-1.25) mg/dL Glucose (74-99) mg/dL POC Glucose (mg/dL) (70-110) mg/dL Microbiology - Last 24 Hours (Table) 04/10/22 15:49 Blood Culture - Final Blood 04/10/22 15:45 Gram Stain - Preliminary Sputum Sputum Culture - Preliminary 04/05/22 15:18 Blood Culture - Preliminary Blood No Growth after 120 hours 04/05/22 15:18 Blood Culture - Preliminary Blood No Growth after 120 hours
[2022-04-11] MEDS: CEFEPIME 2 GM in SODIUM CHLORIDE 0.9% 100 ML IVPB SCH ×2 (11:26→20:03)
[2022-04-11] MEDS: NOREPINEPHRINE 4 MG in SODIUM CHLORIDE 0.9% 250 ML IV SCH ×2 (11:30→18:22)
[2022-04-11 11:41] LABS: Glucose,Whole Blood 209 mg/dL (70-110)
[2022-04-11] MEDS ORDERED: VANCOMYCIN IV PER PHARMACY 1 EACH MISC MISCELLANE PRN (13:03)
[2022-04-11 13:20] LABS: ABG Base Excess 26.3 mmol/L; ABG HCO3 50 mmol/L (21-25); ABG Oxygen Saturation 94.2 % (94-97); ABG PCO2 72 mmHg (35-45); ABG PH 7.45 (7.35-7.45); ABG PO2 76 mmHg (83-108); ABG TCO2 53 mmol/L (19-24)
--- NOTE | 2022-04-11 14:12 | P.PN ---
Subjective Progress Note Date: 04/11/22 This is a 56-year-old male who is being monitored in the intensive care unit secondary to acute hypoxic respiratory failure as well as acute CHF exacerbation. Patient found to be in atrial fibrillation with rapid ventricular rate post intubation. The patient is currently intubated with FiO2 50%, current oxygen saturations 89%. Cardizem gtt weaned yesterday, he is on oral cardizem. Chest x-ray this morning showing pulmonary vascular congestion and bilateral pleural effusions correlate for congestive heart failure. Sodium stable at 137, creatinine is trending down at 1.68, peaked yesterday at 1.74. Infectious disease has been consulted for wound cultures positive for presumptive MRSA and gram negative bacilli to the left leg and is currently maintained on IV cefepime and IV vancomycin pending finalized cultures. He continues on IV Lasix every 12, IV steroids 60 every 6 hours. 04/10/2022 Patient continues to be monitored in intensive care unit, on mechanical ventilator with FiO2 of 50%. Remains tachycardic in the 110-120s. He also had temperature of 100 this morning. Chest xray today showing congestive heart failure with likely associated effusions. Pneumonia not excluded. Patient start ed on lasix gtt yesterday afternoon, he has total of 3.8 L off in the last 24 hours, He is down 5 kg since yesterday, overall his weight is up since admission. Creatinine has improved today 1.59. Cultures are being repeated with concern of fever. He is being followed closely by pulmonary, cardiology, infectious disease. 04/11/2022 Patient is monitored closely in intensive care unit, he is currently intubated on mechanical ventilator with FiO2 of 50%. He has been maintained on lasix gtt currently at 5 with urine output of 8.7 L in the last 24 hours. He continues to be sedated with propofol. Wound culture has finalized to gram negative bacilli/MRSA/enterococcus and patient is being followed by infectious disease on IV cefepime. Blood cultures were taken yesterday and are showing gram positive cocci in clusters, IV vancomycin has been started today, and repeat blood cultures taken. Follow up chest xray today showing pulmonary vascular congestion with moderate effusions/atelectasis vs. consolidation. He is receiving enteral tube feedings with vital AF and blood sugars have been elevated in the 180s to 200s. For this novolog was increased to 2 units with scale every 6 hours and also levemir HS has been added for better glycemic control. Procalcitonin follow up 0.09. Creatinine is slightly increased today at 1.71. Patient remains in atrial fibrillation with elevated heart rate in the 130s, and continues on oral cardizem. T-max over night 100.1, and blood pressure 120/70s. Patient is being followed closely by cardiology, pulmonary manager work, and infectious disease services. Unable to complete review of systems as patient is currently intubated in ICU PHYSICAL EXAMINATION: GENERAL: Patient is currently maintained on mechanical ventilator, intubated. Well developed, well nourished. Obese. HEENT: Pupils are 2mm in size, sluggish. EOMI. No scleral icterus. No conjunctiv al pallor. Normocephalic, atraumatic. No pharyngeal erythema. No thyromegaly. CARDIOVASCULAR: S1 and S2 present. Irregular rate and rhythm. No murmurs, rubs, or gallops. Tachycardic. PULMONARY: Chest is clear to auscultation, no wheezing or crackles. ABDOMEN: Soft, nontender, distended, normoactive bowel sounds. No palpable organomegaly. MUSCULOSKELETAL: No joint swelling or deformity. EXTREMITIES: No cyanosis, clubbing. Peripheral edema pittting upper and lower extremity, bilaterally. NEUROLOGICAL: Unable to complete full neurological exam patient is currently intubated. SKIN: No rashes. Chronic skin changes bilateral lower extremity. Assessment plan Assessment Acute hypoxic respiratory failure secondary to acute diastolic CHF exacerbation and acute COPD exacerbation currently on mechanical ventilator with FiO2 of 50% Atrial fibrillation rate with rapid ventricular rate on oral cardizem. Left lower extremity ulceration and possible cellulitis with culture showing presumptive MRSA/gram neg bacili Gram Positive bacteremia Hypertension Obstructive sleep apnea History of COPD, oxygen dependent History atrial flutter previous ablation Chronic lower extremity edema Former Smoker GI Prophylaxis Protonix DVT Prophylaxis Eliquis Full Code Plan Patient is monitored closely in ICU currently on mechanical ventilator Possible extubation today Continues on empiric antibiotics Patient continues on lasix gtt, strict intake and output Currently maintained off pressor support, cardiology considering resuming carvedilol. Continues on IV steroids, bronchodilators Repeat blood cultures today On enteral tube feedings Insulin has been increased today Repeat BMP in AM The impression and plan of care has been dictated by Meri Galvan, Nurse Practitioner as directed. Dr. Denisse MD I have performed a history and physical examination and medical decision making of this patient, discussed the same with the dictator, and agree with the dictators assessment and plan as written, documented as a scribe. Based on total visit time, I have performed more than 50% of this visit. Objective - Vital Signs Vital signs: Vital Signs Temp 98.9 F 04/11/22 08:00 Pulse 134 H 04/11/22 13:00 Resp 21 04/11/22 13:00 BP 96/73 04/11/22 11:00 Pulse Ox 91 L 04/11/22 13:00 FiO2 50 04/11/22 13:42 Intake & Output 04/10/22 04/11/22 04/11/22 18:59 06:59 18:59 Intake Total 805.503 6177.664 614.301 Output Total 5475 3300 2250 Balance -4645.945 -1806.336 -1635.699 Weight 153.1 kg Intake: IV 177 176 112 0.9% Sodium Chloride 120 110 70 CVP Pressure Bag 33 21 pressure bag 57 33 21 Intake, IV Titration 652.055 589.664 164.301 Amount Cefepime 2 gm In Sodium 100 Chloride 0.9% 100 ml @ 25 mls/hr IVPB Q12HR [facility] Rx #:[id number] Furosemide 100 mg In 29.667 70.333 Sodium Chloride 0.9% 90 ml @ 5 MG/HR 5 mls/hr IV .Q20H [facility] Rx#:[id number] propofoL 1,000 mg In 522.388 519.331 164.301 Empty Bag 1 bag @ 15 MCG/ KG/MIN 13.064 mls/hr IV . Q7H40M [facility] Rx#:[id number] Tube Feeding 638 338 Other 90 Output: Urine 5475 3300 2250 Other: Voiding Method Indwelling Catheter Indwelling Catheter Indwelling Catheter ABP, PAP, CO, CI - Last Documented Arterial Blood Pressure 178/92 - Labs CBC & Chem 7: 04/11/22 04:25 04/11/22 04:25 Labs: Abnormal Lab Results - Last 24 Hours (Table) 04/10/22 04/10/22 04/11/22 Range/Units 17:28 23:19 04:25 Plt Count 136 L (150-450) k/uL Neutrophils # 9.9 H (1.3-7.7) k/uL Lymphocytes # 0.2 L (1.0-4.8) k/uL ABG pH (7.35-7.45) ABG pCO2 (35-45) mmHg ABG pO2 (83-108) mmHg ABG HCO3 (21-25) mmol/L ABG Total CO2 (19-24) mmol/L ABG O2 Saturation (94-97) % Chloride (98-107) mmol/L Carbon Dioxide (22-30) mmol/L BUN (9-20) mg/dL Creatinine (0.66-1.25) mg/dL Glucose (74-99) mg/dL POC Glucose (mg/dL) 160 H 185 H (70-110) mg/dL 04/11/22 04/11/22 04/11/22 Range/Units 04:25 05:36 05:52 Plt Count (150-450) k/uL Neutrophils # (1.3-7.7) k/uL Lymphocytes # (1.0-4.8) k/uL ABG pH 7.47 H (7.35-7.45) ABG pCO2 67 H (35-45) mmHg ABG pO2 65 L (83-108) mmHg ABG HCO3 49 H* (21-25) mmol/L ABG Total CO2 51 H (19-24) mmol/L ABG O2 Saturation 91.7 L (94-97) % Chloride 83 L (98-107) mmol/L Carbon Dioxide 41 H* (22-30) mmol/L BUN 87 H (9-20) mg/dL Creatinine 1.71 H (0.66-1.25) mg/dL Glucose 215 H (74-99) mg/dL POC Glucose (mg/dL) 195 H (70-110) mg/dL 04/11/22 04/11/22 Range/Units 11:39 13:17 Plt Count (150-450) k/uL Neutrophils # (1.3-7.7) k/uL Lymphocytes # (1.0-4.8) k/uL ABG pH (7.35-7.45) ABG pCO2 72 H* (35-45) mmHg ABG pO2 76 L (83-108) mmHg ABG HCO3 50 H* (21-25) mmol/L ABG Total CO2 53 H (19-24) mmol/L ABG O2 Saturation (94-97) % Chloride (98-107) mmol/L Carbon Dioxide (22-30) mmol/L BUN (9-20) mg/dL Creatinine (0.66-1.25) mg/dL Glucose (74-99) mg/dL POC Glucose (mg/dL) 209 H (70-110) mg/dL Microbiology - Last 24 Hours (Table) 04/10/22 15:49 Blood Culture Gram Stain - Preliminary Blood 04/10/22 15:49 Blood Culture - Final Blood 04/10/22 15:45 Gram Stain - Preliminary Sputum Sputum Culture - Preliminary 04/05/22 15:18 Blood Culture - Preliminary Blood No Growth after 120 hours 04/05/22 15:18 Blood Culture - Preliminary Blood No Growth after 120 hours Assessment and Plan Time with Patient: Less than 30
[2022-04-11] MEDS: VANCOMYCIN 2,500 MG in SODIUM CHLORIDE 0.9% 500 ML 500 ML IVPB SCH (16:18)
[2022-04-11] MEDS: methylPREDNISolone SOD SUCCI 40 MG/ML 1 ML VIAL IV SCH ×2 (16:23→23:37)
[2022-04-11 17:47] LABS: Glucose,Whole Blood 152 mg/dL (70-110)
[2022-04-11] MEDS: FAMOTIDINE 20 MG/2 ML VIAL IV SCH (20:03)
[2022-04-11] MEDS ORDERED: INSULIN DETEMIR (LEVEMIR) 100 UNIT/ML SYR SQ SCH (21:00)
[2022-04-11 21:39] LABS: Glucose,Whole Blood 191 mg/dL (70-110)
[2022-04-11 23:34] LABS: Glucose,Whole Blood 168 mg/dL (70-110)
[2022-04-12] MEDS: IPRATROPIUM-ALBUTEROL 3 ML NEB INHALATION SCH ×6 (00:01→20:23)
[2022-04-12] MEDS: HYDROmorphone 1 MG/ML 1 ML SYRINGE IVP PRN ×5 (01:32→20:23)
[2022-04-12 04:10] LABS: Basophils % (A) 0 %; Eosinophils % (A) 0 %; HCT 52.5 % (39.0-53.0); HGB 16.5 gm/dL (13.0-17.5); Hypochromasia Moderate; Lymphocytes # (A) 0.3 k/uL (1.0-4.8); Lymphocytes % (A) 2 %; MCH 28.3 pg (25.0-35.0); MCHC 31.4 g/dL (31.0-37.0); Mean Platelet Volume 9.5; Monocytes # (A) 0.8 k/uL (0-1.0); Monocytes % (A) 6 %; Neutrophils # (A) 12.6 k/uL (1.3-7.7); Neutrophils % (A) 92 %; Platelet Count 123 k/uL (150-450); RBC 5.83 m/uL (4.30-5.90); RDW 13.9 % (11.5-15.5); WBC 13.8 k/uL (3.8-10.6)
[2022-04-12] MEDS: NOREPINEPHRINE 4 MG in SODIUM CHLORIDE 0.9% 250 ML IV SCH (04:18)
[2022-04-12 04:52] LABS: Calcium 8.8 mg/dL (8.4-10.2); Magnesium 2.3 mg/dL (1.6-2.3); Potassium 4.3 mmol/L (3.5-5.1)
[2022-04-12] MEDS: VANCOMYCIN 2,500 MG in SODIUM CHLORIDE 0.9% 500 ML 500 ML IVPB SCH (05:30)
[2022-04-12 06:09] LABS: Glucose,Whole Blood 169 mg/dL (70-110)
[2022-04-12] MEDS: INSULIN ASPART (NovoLOG) 100 UNIT/ML VIAL SQ SCH ×8 (06:11→20:22)
--- NOTE | 2022-04-12 07:48 | XR ---
EXAMINATION TYPE: XR chest 1V portable DATE OF EXAM: 04/12/2022 Comparison: 04/11/2022 Clinical History: 56-year-old male fluid overload Findings: Left subclavian CVC tip at the mid SVC level. Heart/pericardium silhouette moderately enlarged. Small bilateral pleural effusions remain, left greater than right, likely decreased from prior. Dense retr ocardiac opacity persists. Impression: Moderate cardiomegaly, possible mild pulmonary vascular congestion, and continued bilateral effusions , left greater than right. There may have been slight improvement from prior. Persistent retrocardiac atelectasis and consolidation.
[2022-04-12] MEDS: FAMOTIDINE 20 MG/2 ML VIAL IV SCH (08:56)
[2022-04-12] MEDS: APIXABAN 5 MG TAB PO SCH ×2 (08:56→20:25)
[2022-04-12] MEDS: methylPREDNISolone SOD SUCCI 40 MG/ML 1 ML VIAL IV SCH (08:56)
[2022-04-12] MEDS: metOLazone 5 MG TAB PO SCH ×2 (08:57→20:25)
[2022-04-12] MEDS: NITROGLYCERIN OINT 1 INCH/GM PACKET TOPICAL SCH ×4 (08:57→22:33)
[2022-04-12] MEDS: CEFEPIME 2 GM in SODIUM CHLORIDE 0.9% 100 ML IVPB SCH ×2 (08:57→20:22)
[2022-04-12] MEDS: DILTIAZEM ORAL 60 MG TAB PO SCH (08:57)
--- NOTE | 2022-04-12 10:22 | P.PN ---
Subjective Progress Note Date: 04/12/22 On today's evaluation of 04/09/2022, the patient is being seen for a follow-up. He is a 56-year-old gentleman with known history of diastolic heart failure, COPD, chronic hypoxic and hypercapnic respiratory failure and the patient also has obstructive sleep apnea maintained on a BiPAP at a potential 20/16 cm of water along with oxygen at 2 L/m nasal cannula. The patient also has history of liquids. At this point in time, the patient is intubated on a mechanical ventilator for respiratory failure. The patient remains on propofol which is running at 40 mcg/kg/m. The patient is on a mechanical ventilator assist control mode with a rate of 26 with a tidal volume of 450 and FiO2 of 50% with a PEEP of 5. The chest x-ray from today was noted and the patient has adequate positioning of the orotracheal and orogastric tube. The chest x-ray from today is showing that she was back up pulmonary infiltrates and obvious back or pleural effusions. Based on a previous chest x-ray that was on today's ago, the chest x-ray findings are essentially unchanged. The patient had an echocardiogram during this current admission that was done on 04/06/2022 and echo showed a preserved LV function with an ejection fraction of 50-55%. There was no structural or valvular abnormalities noted. The blood work from today shows a white cell count of 9.0 with hemoglobin of 14.1 and a platelet count of 166. Sodium is 137, again is at 74 with a creatinine of 1.6 and a potassium level of 4.6 with a serum bicarb of 44. The patient's blood gas from today shows a pH of 7.38 with episodes of 59 and pO2 of 62. The patient is afebrile. Current cardiac rhythm is a chest fibrillation. The patient is slightly t achycardic. The patient's is on" initial liquids 5 mg by mouth twice a day. He remains on IV cefepime as a broad-spectrum of the cover antibiotic coverage in combination with vancomycin. He is also on no pressors for now. He is receiving enteral feeding for social support and is currently on vital high- protein at the rate of 40 mL an hour. He is on IV Lasix. The overall fluid balance over the past 24 hours has been +1.2 L. 04/10/2022, I'm seeing the patient for a follow-up. This morning, the patient remains on propofol at 45 mcg/kg/m. His adequately sedated and is calm and comfortable. The triple-lumen catheter was inserted yesterday into his left IJ. The chest x-ray from today showing stable pulmonary vascular congestion and moderate to large bilateral pleural effusions. Note that I started the patient on aggressive diuresis yesterday. He is currently on Lasix drip at 10 mg an hour and is also on Zaroxolyn. Overall fluid balance has been -8.7 L over the past 24 hours and the patient is producing excellent amount of urine output. He remains on a mechanical ventilator on assist control mode with a rate of 26, tidal volume of 450 mL, FiO2 of 50% with a PEEP of 5. The blood gas showed pH of 7.45 with a pCO2 of 62 and pO2 of 62. No major improvement in his oxygenati on as such. This is despite his ongoing diuresis. The patient clinically continues to have extensive multilevel edema both in the upper and lower extremities and the patient has significant scrotal edema. The BMs at 78 with a creatinine of 1.59 and the sodium level is at 139. The white cell count of 9.7 with a hemoglobin of 15 and platelet count of 154. The patient continues to receive vital high-protein at the rate of 58 mL an hour. Antibiotic coverage is with IV cefepime for now. Clinically, the patient is stable. He was given a sedation holiday yesterday. He arouses without adding any major difficulties and he follows simple commands. He is afebrile for now. He does not have COPD, chronic hypoxic respiratory failure, obstructive sleep apnea and diastolic heart failure. 04/11/2022, the patient remains sedated this morning on propofol running at 50 mcg/kg/m. I continue to aggressively diurese this patient. Urine output for yesterday was 11 L and over the past 24 hours was 8.7 L. Net fluid balance remains negative. The edema is improving in his legs and in his arms and his scrotum. His chest x-ray however is still showing moderate-sized bilateral pleural effusion. He remains on a mechanical ventilator on assist control mode with a rate of 26 with a tidal volume of 450 and FiO2 of 50% with a PEEP of 5. Morning blood gases showed day pH of 7.47 with a pCO2 of 67 and pO2 of 65. The patient's sodium levels of 138, potassium is 3.9, BUN is at 87 with a creatinine of 1.7 and his CVP is 10. The patient is afebrile. The patient is hemodynamically stable. He remains in atrial fibrillation and the latest slightly tachycardic this morning. He remains on anticoagulation with eloquent 5 mg by mouth twice a day. Enteral feeding is in the form of vital high-protein at 58 cc/ hour. He is covered with IV antibiotics on an empiric basis and the patient is currently on IV cefepime. The patient remains on Lasix drip 5 mg an hour. He is also Zaroxolyn 5 mg by mouth twice a day. He remains on bronchodilators and steroids. 04/12/2022, the patient is extubated and is off propofol and is off the mechanical ventilator. Is awake and alert and is communicating and is on oxygen at 6 L and his current pulse ox is 95%. The patient's is still being diuresed w ith IV Lasix. He is on Lasix drip 5 mg an hour and oral Zaroxolyn. He has been in significant amount of negative fluid balance and he continues to produce excellent urine output. The overall fluid balance over the past 24 hours has been in the order of(-5.5 L and overall fluid balance negativity has been roughly 20 L over the past 3 days since the Lasix was started. He continues to have some edema in his lower extremities and is scrotal edema has improved significantly. The chest x-ray also shows marked improvement in volume status and improvement in the bilateral pleural effusion and the right hemidiaphragm can be adequately visualized for now. In terms of his blood work, he developed some metabolic alkalosis with a bicarb level of 44 and his BUN is at 87 with a creatinine of 1.4. The white cycles of 15.8 with a hemoglobin of 16.6. Overnight, the patient was on a BiPAP at a pressure of 16/10 cm of water and FiO2 of 40%. His current cardiac rhythm is atrial fibrillation with some tachycardia. The patient remains on anticoagulation with eloquent milligrams by mouth twice a day. He has a triple-lumen catheter in his left IJ. He has COPD with chronic hypoxic/upper Respiratory failure and obstructive sleep apnea. Objective - Vital Signs Vital signs: Vital Signs Temp 98.7 F 04/12/22 08:00 Pulse 135 H 04/12/22 09:00 Resp 17 04/12/22 09:00 BP 156/87 04/12/22 09:00 Pulse Ox 96 04/12/22 09:00 FiO2 6 04/12/22 09:00 Intake & Output 04/11/22 04/12/22 04/12/22 18:59 06:59 18:59 Intake Total 792.574 8598.167 Output Total 3100 4250 Balance -2355.699 -3205.833 Weight 153.1 kg 150.8 kg Intake: IV 242 338 0.9% Sodium Chloride 170 260 CVP Pressure Bag 36 39 pressure bag 36 39 Intake, IV Titration 164.301 196.167 Amount Cefepime 2 gm In Sodium 100 Chloride 0.9% 100 ml @ 25 mls/hr IVPB Q12HR [facility] Rx #:[id number] Furosemide 100 mg In 96.167 Sodium Chloride 0.9% 90 ml @ 5 MG/HR 5 mls/hr IV .Q20H [facility] Rx#:[id number] propofoL 1,000 mg In 164.301 Empty Bag 1 bag @ 15 MCG/ KG/MIN 13.064 mls/hr IV . Q7H40M [facility] Rx#:[id number] Oral 510 Tube Feeding 338 Output: Urine 3100 4250 Other: Voiding Method Indwelling Catheter Indwelling Catheter Indwelling Catheter ABP, PAP, CO, CI - Last Documented Arterial Blood Pressure 162/91 - Exam No acute distress, awake and alert and the patient is currently on 6 L O2 nasal cannula HEENT examination is grossly unremarkable. Neck supple. Full range of motion. No adenopathy thyromegaly or neck vein distention. Left subclavian triple-lumen catheter in place Cardiovascular examination reveals an irregular rhythm and rate. S1-S2 normal. No S3 or S4. No discernible murmur noted. Lungs reveal bilateral coarse rhonchi, and crackles. Breath sounds equal bilaterally. No wheezes. Abdomen soft, with bowel sounds. No masses or tenderness. the patient has a significant scrotal edema that has gotten significantly worse during this current admission. Extremities are intact. Small left leg wound noted. No cyanosis or clubbing. Mild to moderate edema appreciated. Skin is without rash or lesion. Neurologic examination , Neurologically, the patient is awake and alert and the patient does not have any focal neurological deficit. Cranial nerves are essentially intact. - Labs CBC & Chem 7: 04/12/22 03:55 04/12/22 03:55 Labs: Abnormal Lab Results - Last 24 Hours (Table) 04/11/22 04/11/22 04/11/22 Range/Units 11:39 13:17 17:45 WBC (3.8-10.6) k/uL Plt Count (150-450) k/uL Neutrophils # (1.3-7.7) k/uL Lymphocytes # (1.0-4.8) k/uL ABG pCO2 72 H* (35-45) mmHg ABG pO2 76 L (83-108) mmHg ABG HCO3 50 H* (21-25) mmol/L ABG Total CO2 53 H (19-24) mmol/L Chloride (98-107) mmol/L Carbon Dioxide (22-30) mmol/L BUN (9-20) mg/dL Creatinine (0.66-1.25) mg/dL Glucose (74-99) mg/dL POC Glucose (mg/dL) 209 H 152 H (70-110) mg/dL 04/11/22 04/11/22 04/12/22 Range/Units 21:37 23:32 03:55 WBC (3.8-10.6) k/uL Plt Count (150-450) k/uL Neutrophils # (1.3-7.7) k/uL Lymphocytes # (1.0-4.8) k/uL ABG pCO2 (35-45) mmHg ABG pO2 (83-108) mmHg ABG HCO3 (21-25) mmol/L ABG Total CO2 (19-24) mmol/L Chloride 81 L (98-107) mmol/L Carbon Dioxide 44 H* (22-30) mmol/L BUN 87 H (9-20) mg/dL Creatinine 1.46 H (0.66-1.25) mg/dL Glucose 164 H (74-99) mg/dL POC Glucose (mg/dL) 191 H 168 H (70-110) mg/dL 04/12/22 04/12/22 Range/Units 03:55 06:07 WBC 13.8 H (3.8-10.6) k/uL Plt Count 123 L (150-450) k/uL Neutrophils # 12.6 H (1.3-7.7) k/uL Lymphocytes # 0.3 L (1.0-4.8) k/uL ABG pCO2 (35-45) mmHg ABG pO2 (83-108) mmHg ABG HCO3 (21-25) mmol/L ABG Total CO2 (19-24) mmol/L Chloride (98-107) mmol/L Carbon Dioxide (22-30) mmol/L BUN (9-20) mg/dL Creatinine (0.66-1.25) mg/dL Glucose (74-99) mg/dL POC Glucose (mg/dL) 169 H (70-110) mg/dL Microbiology - Last 24 Hours (Table) 04/05/22 15:29 Gram Stain - Final Leg - Left Wound Culture - Final Acinetobacter lwoffi grp Methicillin resist S. aureus Enterococcus faecalis Pseudomonas fluorescens/putida 04/10/22 15:49 Blood Culture Gram Stain - Preliminary Blood Blood Culture - Preliminary Staphylococcus epidermidis 04/05/22 15:18 Blood Culture - Final Blood No Growth after 144 hours 04/05/22 15:18 Blood Culture - Final Blood No Growth after 144 hours 04/10/22 15:49 Blood Culture - Final Blood 04/10/22 15:45 Gram Stain - Preliminary Sputum Sputum Culture - Preliminary Assessment and Plan Plan: Acute hypoxemic respiratory failure secondary to acute diastolic congestive h eart failure, and acute exacerbation of chronic obstructive pulmonary disease.the chest x-ray continues to show moderate to large bilateral pleural effusion in addition to significant amount of pulm congestion. This is probably a heart failure with preserved LV function. The patient continues to be in fluid overload and the diuresis has not been successful and he remains on Lasix drip and Zaroxolyn with excellent urine output and the fluid balance is negative. Overall, the fluid balance is more than 20 L of the past 3 days and I think the vault status improves, the chest x-rays improved and the patient has been extubated and the patient is Now 6 L O2 nasal cannula. Lasix drip and be discontinued for now. Acute hypercapnic respiratory failure secondary to above. Bilateral pleural effusion, and further diuresis Atrial fibrillation with a rapid ventricular response, currently on a Cardizem drip, anticoagulated with Eliquis. Morbid obesity with a BMI of 50 kg/m2. Obstructive sleep apnea, maintained on BiPAP 20/16 along with 2 L of oxygen. Chronic obstructive pulmonary disease, oxygen dependent, FEV1 value 22% of predicted. Small left leg wound, with gram-negative bacilli/presumptive staph. Acute on chronic lower extremity edema secondary to right-sided heart failure/cor pulmonale. Former smoker. plan The patient has been weaned down to 6 L of O2 nasal cannula. This can be further weaned down Discontinue the Lasix "drip and switch the patient on Lasix 40 mg IV every 12 hours Continue Zaroxolyn for another 24 hours BiPAP overnight Negative on increasing the Cardizem dose to 360 mg for better heart rate control and start the patient on metoprolol 25 mg twice a day and continued anticoagulation with liquids. Discontinue the vancomycin Discontinue the IV Solu-Medrol and start the patient on a prednisone burst taper Advance diet Pro-calcitonin level was low Patient is on empiric antibiotic coverage with IV cefepime The family was updated We'll continue the supportive care PTOT evaluation Incentive spirometer IV fluids to KVO Monitor electrolytes Will make further recommendations based on his progress.
[2022-04-12] MEDS: METOPROLOL TARTRATE 25 MG TAB PO SCH ×2 (10:48→20:25)
[2022-04-12] MEDS: DILTIAZEM CD 180 MG CAP.ER.24H PO SCH (10:48)
[2022-04-12 11:46] LABS: Glucose,Whole Blood 232 mg/dL (70-110)
[2022-04-12] MEDS ORDERED: INSULIN ASPART (NovoLOG) 100 UNIT/ML VIAL SQ SCH (12:00)
--- NOTE | 2022-04-12 12:22 | P.PN ---
Subjective Progress Note Date: 04/12/22 The patient is a 56-year-old male who presented to the hospital with worsening shortness of breath. He was initially admitted to [address] [place] [address] on BiPAP, and became hypoxic and was subsequently intubated. After intubation he developed A. fib with RVR. He was started on oral amiodarone and Cardizem drip, however the patient did not convert back to sinus rhythm. The patient is being diuresed via pulmonology. He was extubated on 04/11/2022. He was interviewed and examined lying comfortably in bed. He states he is breathing well and is overall feeling better. No chest pain. GENERAL: Ill-appearing, obese male. NECK: Supple without JVD or thyromegaly. LUNGS: Breath sounds diminished to auscultation bilaterally. Respiration equal and unlabored. Currently vented. HEART: Irregular rate and rhythm without murmurs, rubs or gallops. S1 and S2 heard. EXTREMITIES: Normal range of motion, +2 bilateral edema. Scrotal edema. No clubbing or cyanosis. Peripheral pulses intact and strong. VITALS: Blood pressure 118/80, respiratory rate 14, heart rate 1:30, SpO2 93% on 6 L nasal cannula, temp 98.1F TELEMETRY: Atrial fibrillation with heart rates in the 130s LABS: WBC 13.8, hemoglobin 16.5, hematocrit 52.5, platelet 123, sodium 138, potassium 4.3, BUN 87, creatinine 1.46, magnesium 2.3 IMPRESSION: Atrial fibrillation, rate controlled, on anticoagulation Congestive heart failure, preserved ejection fraction COPD exacerbation, currently ventilated Elevated troponins, flat trend Morbid obesity, BMI 50 Venous stasis ulcer, positive for gram-negative bacilli History of atrial flutter, ablation 07/27/2021 PLAN: Increase the Cardizem to 360 mg Consider resuming beta ag Further recommendations based on clinical course I am dictating on behalf of Dr Carmine Dickerson's history/physical and as sessment/plan. Objective - Vital Signs Vital signs: Vital Signs Temp 98.1 F 04/12/22 12:00 Pulse 147 H 04/12/22 11:00 Resp 14 04/12/22 12:00 BP 138/107 04/12/22 10:00 Pulse Ox 93 L 04/12/22 12:00 FiO2 6 04/12/22 09:00 Intake & Output 04/11/22 04/12/22 04/12/22 18:59 06:59 18:59 Intake Total 751.439 4546.167 720 Output Total 3100 4250 1400 Balance -8085.699 -9895.833 -680 Weight 153.1 kg 150.8 kg Intake: IV 242 338 220 0.9% Sodium Chloride 170 260 90 CVP Pressure Bag 36 39 15 Cefepime 2 gm In Sodium 100 Chloride 0.9% 100 ml @ 25 mls/hr IVPB Q8HR [facility] Rx# :[id number] pressure bag 36 39 15 Intake, IV Titration 164.301 196.167 Amount Cefepime 2 gm In Sodium 100 Chloride 0.9% 100 ml @ 25 mls/hr IVPB Q12HR [facility] Rx #:[id number] Furosemide 100 mg In 96.167 Sodium Chloride 0.9% 90 ml @ 5 MG/HR 5 mls/hr IV .Q20H [facility] Rx#:[id number] propofoL 1,000 mg In 164.301 Empty Bag 1 bag @ 15 MCG/ KG/MIN 13.064 mls/hr IV . Q7H40M [facility] Rx#:[id number] Oral 510 500 Tube Feeding 338 Output: Urine 3100 4250 1400 Other: Voiding Method Indwelling Catheter Indwelling Catheter Indwelling Catheter ABP, PAP, CO, CI - Last Documented Arterial Blood Pressure 118/80 - Labs CBC & Chem 7: 04/12/22 03:55 04/12/22 03:55 Labs: Abnormal Lab Results - Last 24 Hours (Table) 04/11/22 04/11/22 04/11/22 Range/Units 13:17 17:45 21:37 WBC (3.8-10.6) k/uL Plt Count (150-450) k/uL Neutrophils # (1.3-7.7) k/uL Lymphocytes # (1.0-4.8) k/uL ABG pCO2 72 H* (35-45) mmHg ABG pO2 76 L (83-108) mmHg ABG HCO3 50 H* (21-25) mmol/L ABG Total CO2 53 H (19-24) mmol/L Chloride (98-107) mmol/L Carbon Dioxide (22-30) mmol/L BUN (9-20) mg/dL Creatinine (0.66-1.25) mg/dL Glucose (74-99) mg/dL POC Glucose (mg/dL) 152 H 191 H (70-110) mg/dL 04/11/22 04/12/22 04/12/22 Range/Units 23:32 03:55 03:55 WBC 13.8 H (3.8-10.6) k/uL Plt Count 123 L (150-450) k/uL Neutrophils # 12.6 H (1.3-7.7) k/uL Lymphocytes # 0.3 L (1.0-4.8) k/uL ABG pCO2 (35-45) mmHg ABG pO2 (83-108) mmHg ABG HCO3 (21-25) mmol/L ABG Total CO2 (19-24) mmol/L Chloride 81 L (98-107) mmol/L Carbon Dioxide 44 H* (22-30) mmol/L BUN 87 H (9-20) mg/dL Creatinine 1.46 H (0.66-1.25) mg/dL Glucose 164 H (74-99) mg/dL POC Glucose (mg/dL) 168 H (70-110) mg/dL 04/12/22 04/12/22 Range/Units 06:07 11:34 WBC (3.8-10.6) k/uL Plt Count (150-450) k/uL Neutrophils # (1.3-7.7) k/uL Lymphocytes # (1.0-4.8) k/uL ABG pCO2 (35-45) mmHg ABG pO2 (83-108) mmHg ABG HCO3 (21-25) mmol/L ABG Total CO2 (19-24) mmol/L Chloride (98-107) mmol/L Carbon Dioxide (22-30) mmol/L BUN (9-20) mg/dL Creatinine (0.66-1.25) mg/dL Glucose (74-99) mg/dL POC Glucose (mg/dL) 169 H 232 H (70-110) mg/dL Microbiology - Last 24 Hours (Table) 04/05/22 15:29 Gram Stain - Final Leg - Left Wound Culture - Final Acinetobacter lwoffi grp Methicillin resist S. aureus Enterococcus faecalis Pseudomonas fluorescens/putida 04/10/22 15:49 Blood Culture Gram Stain - Preliminary Blood Blood Culture - Preliminary Staphylococcus epidermidis 04/05/22 15:18 Blood Culture - Final Blood No Growth after 144 hours 04/05/22 15:18 Blood Culture - Final Blood No Growth after 144 hours 04/10/22 15:49 Blood Culture - Final Blood 04/10/22 15:45 Gram Stain - Preliminary Sputum Sputum Culture - Preliminary
[2022-04-12 16:40] LABS: Glucose,Whole Blood 205 mg/dL (70-110)
--- NOTE | 2022-04-12 16:49 | P.PN ---
Subjective Progress Note Date: 04/12/22 This is a 56-year-old male who is being monitored in the intensive care unit secondary to acute hypoxic respiratory failure as well as acute CHF exacerbation. Patient found to be in atrial fibrillation with rapid ventricular rate post intubation. The patient is currently intubated with FiO2 50%, current oxygen saturations 89%. Cardizem gtt weaned yesterday, he is on oral cardizem. Chest x-ray this morning showing pulmonary vascular congestion and bilateral pleural effusions correlate for congestive heart failure. Sodium stable at 137, creatinine is trending down at 1.68, peaked yesterday at 1.74. Infectious disease has been consulted for wound cultures positive for presumptive MRSA and gram negative bacilli to the left leg and is currently maintained on IV cefepime and IV vancomycin pending finalized cultures. He continues on IV Lasix every 12, IV steroids 60 every 6 hours. 04/10/2022 Patient continues to be monitored in intensive care unit, on mechanical ventilator with FiO2 of 50%. Remains tachycardic in the 110-120s. He also had temperature of 100 this morning. Chest xray today showing congestive heart failure with likely associated effusions. Pneumonia not excluded. Patient start ed on lasix gtt yesterday afternoon, he has total of 3.8 L off in the last 24 hours, He is down 5 kg since yesterday, overall his weight is up since admission. Creatinine has improved today 1.59. Cultures are being repeated with concern of fever. He is being followed closely by pulmonary, cardiology, infectious disease. 04/11/2022 Patient is monitored closely in intensive care unit, he is currently intubated on mechanical ventilator with FiO2 of 50%. He has been maintained on lasix gtt currently at 5 with urine output of 8.7 L in the last 24 hours. He continues to be sedated with propofol. Wound culture has finalized to gram negative bacilli/MRSA/enterococcus and patient is being followed by infectious disease on IV cefepime. Blood cultures were taken yesterday and are showing gram positive cocci in clusters, IV vancomycin has been started today, and repeat blood cultures taken. Follow up chest xray today showing pulmonary vascular congestion with moderate effusions/atelectasis vs. consolidation. He is receiving enteral tube feedings with vital AF and blood sugars have been elevated in the 180s to 200s. For this novolog was increased to 2 units with scale every 6 hours and also levemir HS has been added for better glycemic control. Procalcitonin follow up 0.09. Creatinine is slightly increased today at 1.71. Patient remains in atrial fibrillation with elevated heart rate in the 130s, and continues on oral cardizem. T-max over night 100.1, and blood pressure 120/70s. 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 04/12/2022 Patient is evaluated in intensive care unit sitting up in chair. Patient was extubated yesterday around 1330. Currently he is on oxygen support with 6L nasal cannula saturation 93%. He denies chest pain, no shortness of breath. He is tolerating some liquid diet. He continues with negative fluid balance about -3.7 L in the last 24 hours and lasix gtt has been discontinued. IV lasix 40 mg every 12 hours has been started. Repeat chest xray from today showing persistent retrocardiac atelectasis and consolidation. Blood culture showing staph epi possibly a contaminent, repeat is pending. Continues on IV cefepime managed by infectious disease. Patient continues in atrial fibrillation with heart rate in the 140s, cardiology has increased oral cardizem and started patient on metoprolol today. Labs reviewed today showing white count 13.8, BUN 87, creatinine 1.46, blood glucose in the 180s. Review of Systems Constitutional: Denied any fatigue denied any fever. Cardio vascular: denied any chest pain, palpitations Gastrointestinal: denied any nausea, vomiting, diarrhea Pulmonary: Denied any shortness of breath cough Neurologic denied any new focal deficits All inpatient medications were reviewed and appropriate changes in these medications as dictated in the interval history and assessment and plan. PHYSICAL EXAMINATION: GENERAL: This is a 56 year old male, sitting up in chair. Appears in no acute distress. Well developed, well nourished. Obese. HEENT: Pupils are 2mm in size, sluggish. EOMI. No scleral icterus. No conjunctival pallor. Normocephalic, atraumatic. No pharyngeal erythema. No thyromegaly. CARDIOVASCULAR: S1 and S2 present. Irregular rate and rhythm. No murmurs, rubs, or gallops. Tachycardic. PULMONARY: Scattered wheezing noted. ABDOMEN: Soft, nontender, distended, normoactive bowel sounds. No palpable organomegaly. MUSCULOSKELETAL: No joint swelling or deformity. EXTREMITIES: No cyanosis, clubbing. Peripheral edema pittting upper and lower extremity, bilaterally. NEUROLOGICAL: Focal neurological exam is negative, patient has some mild generalized weakness. SKIN: No rashes. Chronic skin changes bilateral lower extremity. small ulceration left colon. Assessment plan Assessment Acute hypoxic respiratory failure secondary to acute diastolic CHF exacerbation and acute COPD exacerbation, extubated on 04/12/22, currently on 6L hi flow cannula. Atrial fibrillation rate with rapid ventricular rate on oral cardizem. Left lower extremity ulceration and possible cellulitis with culture showing presumptive MRSA/gram neg bacili Gram Positive bacteremia Hypertension Obstructive sleep apnea History of COPD, oxygen dependent History atrial flutter previous ablation Chronic lower extremity edema Former Smoker GI Prophylaxis Protonix DVT Prophylaxis Eliquis Full Code Plan Patient is monitored closely in ICU, has been extubated on 04/12/22 Continues on empiric antibiotics Lasix gtt has been transitioned to IV push lasix Cardizem increased today, started on metoprolol Continues on IV steroids, bronchodilators Blood cultures pending Monitor blood glucose Repeat BMP in AM The impression and plan of care has been dictated by Meri Galvan, Nurse Practitioner as directed. Dr. Denisse MD I have performed a history and physical examination and medical decision making of this patient, discussed the same with the dictator, and agree with the dictators assessment and plan as written, documented as a scribe. Based on total visit time, I have performed more than 50% of this visit. Objective - Vital Signs Vital signs: Vital Signs Temp 98.1 F 04/12/22 16:00 Pulse 118 H 04/12/22 16:00 Resp 12 04/12/22 16:00 BP 151/99 04/12/22 16:00 Pulse Ox 93 L 04/12/22 16:00 FiO2 6 04/12/22 09:00 Intake & Output 04/11/22 04/12/22 04/12/22 18:59 06:59 18:59 Intake Total 736.329 7350.167 1318 Output Total 3100 4250 2050 Balance -2285.699 -3205.833 -732 Weight 153.1 kg 150.8 kg Intake: IV 242 338 318 0.9% Sodium Chloride 170 260 170 CVP Pressure Bag 36 39 27 Cefepime 2 gm In Sodium 100 Chloride 0.9% 100 ml @ 25 mls/hr IVPB Q8HR [facility] Rx# :[id number] pressure bag 36 39 21 Intake, IV Titration 164.301 196.167 Amount Cefepime 2 gm In Sodium 100 Chloride 0.9% 100 ml @ 25 mls/hr IVPB Q12HR [facility] Rx #:[id number] Furosemide 100 mg In 96.167 Sodium Chloride 0.9% 90 ml @ 5 MG/HR 5 mls/hr IV .Q20H [facility] Rx#:[id number] propofoL 1,000 mg In 164.301 Empty Bag 1 bag @ 15 MCG/ KG/MIN 13.064 mls/hr IV . Q7H40M [facility] Rx#:[id number] Oral 510 1000 Tube Feeding 338 Output: Urine 3100 4250 2050 Other: Voiding Method Indwelling Catheter Indwelling Catheter Indwelling Catheter ABP, PAP, CO, CI - Last Documented Arterial Blood Pressure 137/84 - Labs CBC & Chem 7: 04/12/22 03:55 04/12/22 03:55 Labs: Abnormal Lab Results - Last 24 Hours (Table) 04/11/22 04/11/22 04/11/22 Range/Units 17:45 21:37 23:32 WBC (3.8-10.6) k/uL Plt Count (150-450) k/uL Neutrophils # (1.3-7.7) k/uL Lymphocytes # (1.0-4.8) k/uL Chloride (98-107) mmol/L Carbon Dioxide (22-30) mmol/L BUN (9-20) mg/dL Creatinine (0.66-1.25) mg/dL Glucose (74-99) mg/dL POC Glucose (mg/dL) 152 H 191 H 168 H (70-110) mg/dL 04/12/22 04/12/22 04/12/22 Range/Units 03:55 03:55 06:07 WBC 13.8 H (3.8-10.6) k/uL Plt Count 123 L (150-450) k/uL Neutrophils # 12.6 H (1.3-7.7) k/uL Lymphocytes # 0.3 L (1.0-4.8) k/uL Chloride 81 L (98-107) mmol/L Carbon Dioxide 44 H* (22-30) mmol/L BUN 87 H (9-20) mg/dL Creatinine 1.46 H (0.66-1.25) mg/dL Glucose 164 H (74-99) mg/dL POC Glucose (mg/dL) 169 H (70-110) mg/dL 04/12/22 04/12/22 Range/Units 11:34 16:39 WBC (3.8-10.6) k/uL Plt Count (150-450) k/uL Neutrophils # (1.3-7.7) k/uL Lymphocytes # (1.0-4.8) k/uL Chloride (98-107) mmol/L Carbon Dioxide (22-30) mmol/L BUN (9-20) mg/dL Creatinine (0.66-1.25) mg/dL Glucose (74-99) mg/dL POC Glucose (mg/dL) 232 H 205 H (70-110) mg/dL Microbiology - Last 24 Hours (Table) 04/11/22 18:38 Blood Culture Gram Stain - Preliminary Blood 04/11/22 18:38 Blood Culture - Final Blood 04/10/22 15:49 Blood Culture Gram Stain - Preliminary Blood Blood Culture - Preliminary Staphylococcus epidermidis 04/05/22 15:29 Gram Stain - Final Leg - Left Wound Culture - Final Acinetobacter lwoffi grp Methicillin resist S. aureus Enterococcus faecalis Pseudomonas fluorescens/putida 04/05/22 15:18 Blood Culture - Final Blood No Growth after 144 hours 04/05/22 15:18 Blood Culture - Final Blood No Growth after 144 hours Assessment and Plan Time with Patient: Less than 30
[2022-04-12 19:51] LABS: Glucose,Whole Blood 167 mg/dL (70-110)
[2022-04-12] MEDS: INSULIN DETEMIR (LEVEMIR) 100 UNIT/ML SYR SQ SCH (20:21)
[2022-04-12] MEDS: FUROSEMIDE 10 MG/ML 4 ML VIAL IV SCH (20:25)
[2022-04-12] MEDS: FAMOTIDINE 20 MG TAB PO SCH (20:25)
[2022-04-12] MEDS ORDERED: INSULIN DETEMIR (LEVEMIR) 100 UNIT/ML SYR SQ SCH (21:00)
[2022-04-13] MEDS ORDERED: IPRATROPIUM-ALBUTEROL 3 ML NEB ONE
[2022-04-13] MEDS: IPRATROPIUM-ALBUTEROL 3 ML NEB INHALATION SCH ×6 (05:52→20:52)
[2022-04-13 06:15] LABS: Glucose,Whole Blood 124 mg/dL (70-110)
[2022-04-13] MEDS: INSULIN ASPART (NovoLOG) 100 UNIT/ML VIAL SQ SCH ×8 (06:55→20:46)
--- NOTE | 2022-04-13 07:35 | XR ---
EXAMINATION TYPE: XR chest 1V portable DATE OF EXAM: 04/13/2022 COMPARISON: 04/12/2022 INDICATION: CHF, COPD TECHNIQUE: Single frontal view of the chest is obtained. FINDINGS: The heart size is enlarged. The pulmonary vasculature is somewhat prominent. Small left pleural effusion is present. Some minimal infiltrate may be above the right diaphragm. IMPRESSION: 1. Clinical consideration for mild congestive heart failure or volume overload. 2. Small left pleural effusion. 3. Mild infiltrate at the right base. Correlate for atelectasis.
[2022-04-13 07:58] LABS: Basophils # (A) 0.1 k/uL (0-0.2); Basophils % (A) 1 %; Eosinophils # (A) 0.1 k/uL (0-0.7); Eosinophils % (A) 1 %; HCT 54.6 % (39.0-53.0); HGB 16.9 gm/dL (13.0-17.5); Hypochromasia Marked; Lymphocytes # (A) 0.6 k/uL (1.0-4.8); Lymphocytes % (A) 4 %; MCH 28.2 pg (25.0-35.0); MCHC 30.9 g/dL (31.0-37.0); Mean Platelet Volume 9.2; Monocytes # (A) 1.1 k/uL (0-1.0); Monocytes % (A) 8 %; Neutrophils # (A) 11.9 k/uL (1.3-7.7); Neutrophils % (A) 86 %; Platelet Count 106 k/uL (150-450); RDW 13.8 % (11.5-15.5); WBC 13.9 k/uL (3.8-10.6)
[2022-04-13 08:17] LABS: Calcium 8.6 mg/dL (8.4-10.2); Potassium 4.2 mmol/L (3.5-5.1)
[2022-04-13] MEDS: metOLazone 5 MG TAB PO SCH (08:34)
[2022-04-13] MEDS: CEFEPIME 2 GM in SODIUM CHLORIDE 0.9% 100 ML IVPB SCH ×2 (08:34→15:57)
[2022-04-13] MEDS: predniSONE 20 MG TAB PO SCH (08:35)
[2022-04-13] MEDS: NITROGLYCERIN OINT 1 INCH/GM PACKET TOPICAL SCH ×4 (08:35→23:59)
[2022-04-13] MEDS: FUROSEMIDE 10 MG/ML 4 ML VIAL IV SCH (08:35)
[2022-04-13] MEDS: FAMOTIDINE 20 MG TAB PO SCH ×2 (08:35→21:30)
[2022-04-13] MEDS: APIXABAN 5 MG TAB PO SCH ×2 (08:35→20:28)
[2022-04-13] MEDS: METOPROLOL TARTRATE 25 MG TAB PO SCH ×2 (08:35→20:28)
[2022-04-13] MEDS: DILTIAZEM CD 180 MG CAP.ER.24H PO SCH (08:35)
[2022-04-13] MEDS: HYDROmorphone 1 MG/ML 1 ML SYRINGE IVP PRN ×3 (08:45→20:27)
[2022-04-13] MEDS ORDERED: DILTIAZEM CD 180 MG CAP.ER.24H PO SCH (09:00)
--- NOTE | 2022-04-13 11:03 | P.PN ---
Subjective Progress Note Date: 04/13/22 The patient is a 56-year-old male who presented to the hospital with worsening shortness of breath. He was initially admitted to [address] [place] [address] on BiPAP, and became hypoxic and was subsequently intubated. After intubation he developed A. fib with RVR. He was started on oral amiodarone and Cardizem drip, however the patient did not convert back to sinus rhythm. He was extubated on 04/11/2022. Yesterday his oral Cardizem was increased to 360 mg. He was interviewed and examined lying comfortably in bed. He states he is breathing well and is overall feeling better. No chest pain. Heart rates are slowly improving overnight. GENERAL: Well-appearing, obese male. In no acute distress. NECK: Supple without JVD or thyromegaly. LUNGS: Breath sounds diminished to auscultation bilaterally. Respiration equal and unlabored. Fine crackles noted in the bilateral bases HEART: Irregular rate and rhythm without murmurs, rubs or gallops. S1 and S2 heard. EXTREMITIES: Normal range of motion, no edema. No clubbing or cyanosis. Peripheral pulses intact and strong. VITALS: Blood pressure 120/77, respiratory rate 17, SpO2 95% on 6 L nasal cannula, temp 98.3F, heart rate 97 TELEMETRY: Atrial fibrillation with heart rates in the 1 teens to 120s LABS: WBC 13.8, hemoglobin 16.5, hematocrit 52.5, platelet 123, sodium 138, potassium 4.3, BUN 87, creatinine 1.46, magnesium 2.3 IMPRESSION: Atrial fibrillation, rate controlled, on anticoagulation Congestive heart failure, preserved ejection fraction COPD exacerbation, currently ventilated Elevated troponins, flat trend Morbid obesity, BMI 50 Venous stasis ulcer, positive for gram-negative bacilli History of atrial flutter, ablation 07/27/2021 PLAN: Add additional Cardizem dose in the evening Continue rate control strategy Further recommendations based on clinical course I am dictating on behalf of Dr Carmine Dickerson's history/physical and assessment/ plan. Objective - Vital Signs Vital signs: Vital Signs Temp 98.3 F 04/13/22 08:00 Pulse 91 04/13/22 10:00 Resp 22 04/13/22 10:00 BP 147/104 04/13/22 10:00 Pulse Ox 95 04/13/22 10:00 FiO2 40 04/13/22 07:30 Intake & Output 04/12/22 04/13/22 04/13/22 18:59 06:59 18:59 Intake Total 1887 236 659 Output Total 2400 2200 925 Balance -513 -1964 -266 Weight 148.8 kg Intake: IV 387 161 159 0.9% Sodium Chloride 230 140 50 CVP Pressure Bag 36 21 9 Cefepime 2 gm In Sodium 100 Chloride 0.9% 100 ml @ 25 mls/hr IVPB Q8HR [facility]BI Rx# :[id number] ceFAZolin 2 gm In Sodium 100 Chloride 0.9% 50 ml @ 100 mls/hr IVPB Q8HR [facility] Rx# :[id number] pressure bag 21 Intake, IV Titration 75 Amount Cefepime 2 gm In Sodium 75 Chloride 0.9% 100 ml @ 25 mls/hr IVPB Q12HR [facility] Rx #:[id number] Oral 1500 500 Output: Urine 2400 2200 925 Other: Voiding Method Indwelling Catheter Indwelling Catheter Indwelling Catheter ABP, PAP, CO, CI - Last Documented Arterial Blood Pressure 137/84 - Labs CBC & Chem 7: 04/13/22 07:41 04/13/22 07:41 Labs: Abnormal Lab Results - Last 24 Hours (Table) 04/12/22 04/12/22 04/12/22 Range/Units 11:34 16:39 19:50 WBC (3.8-10.6) k/uL RBC (4.30-5.90) m/uL Hct (39.0-53.0) % MCHC (31.0-37.0) g/dL Plt Count (150-450) k/uL Neutrophils # (1.3-7.7) k/uL Lymphocytes # (1.0-4.8) k/uL Monocytes # (0-1.0) k/uL Chloride (98-107) mmol/L Carbon Dioxide (22-30) mmol/L BUN (9-20) mg/dL Glucose (74-99) mg/dL POC Glucose (mg/dL) 232 H 205 H 167 H (70-110) mg/dL 04/13/22 04/13/22 04/13/22 Range/Units 06:14 07:41 07:41 WBC 13.9 H (3.8-10.6) k/uL RBC 6.00 H (4.30-5.90) m/uL Hct 54.6 H (39.0-53.0) % MCHC 30.9 L (31.0-37.0) g/dL Plt Count 106 L (150-450) k/uL Neutrophils # 11.9 H (1.3-7.7) k/uL Lymphocytes # 0.6 L (1.0-4.8) k/uL Monocytes # 1.1 H (0-1.0) k/uL Chloride 81 L (98-107) mmol/L Carbon Dioxide 50 H* (22-30) mmol/L BUN 79 H (9-20) mg/dL Glucose 108 H (74-99) mg/dL POC Glucose (mg/dL) 124 H (70-110) mg/dL Microbiology - Last 24 Hours (Table) 04/11/22 18:38 Blood Culture Gram Stain - Preliminary Blood 04/11/22 18:38 Blood Culture - Final Blood 04/10/22 15:49 Blood Culture Gram Stain - Preliminary Blood Blood Culture - Preliminary Staphylococcus epidermidis
[2022-04-13 11:19] LABS: Glucose,Whole Blood 163 mg/dL (70-110)
--- NOTE | 2022-04-13 11:26 | P.PN ---
Subjective Progress Note Date: 04/13/22 On today's evaluation of 04/09/2022, the patient is being seen for a follow-up. He is a 56-year-old gentleman with known history of diastolic heart failure, COPD, chronic hypoxic and hypercapnic respiratory failure and the patient also has obstructive sleep apnea maintained on a BiPAP at a potential 20/16 cm of water along with oxygen at 2 L/m nasal cannula. The patient also has history of liquids. At this point in time, the patient is intubated on a mechanical ventilator for respiratory failure. The patient remains on propofol which is running at 40 mcg/kg/m. The patient is on a mechanical ventilator assist control mode with a rate of 26 with a tidal volume of 450 and FiO2 of 50% with a PEEP of 5. The chest x-ray from today was noted and the patient has adequate positioning of the orotracheal and orogastric tube. The chest x-ray from today is showing that she was back up pulmonary infiltrates and obvious back or pleural effusions. Based on a previous chest x-ray that was on today's ago, the chest x-ray findings are essentially unchanged. The patient had an echocardiogram during this current admission that was done on 04/06/2022 and echo showed a preserved LV function with an ejection fraction of 50-55%. There was no structural or valvular abnormalities noted. The blood work from today shows a white cell count of 9.0 with hemoglobin of 14.1 and a platelet count of 166. Sodium is 137, again is at 74 with a creatinine of 1.6 and a potassium level of 4.6 with a serum bicarb of 44. The patient's blood gas from today shows a pH of 7.38 with episodes of 59 and pO2 of 62. The patient is afebrile. Current cardiac rhythm is a chest fibrillation. The patient is slightly t achycardic. The patient's is on" initial liquids 5 mg by mouth twice a day. He remains on IV cefepime as a broad-spectrum of the cover antibiotic coverage in combination with vancomycin. He is also on no pressors for now. He is receiving enteral feeding for social support and is currently on vital high- protein at the rate of 40 mL an hour. He is on IV Lasix. The overall fluid balance over the past 24 hours has been +1.2 L. 04/10/2022, I'm seeing the patient for a follow-up. This morning, the patient remains on propofol at 45 mcg/kg/m. His adequately sedated and is calm and comfortable. The triple-lumen catheter was inserted yesterday into his left IJ. The chest x-ray from today showing stable pulmonary vascular congestion and moderate to large bilateral pleural effusions. Note that I started the patient on aggressive diuresis yesterday. He is currently on Lasix drip at 10 mg an hour and is also on Zaroxolyn. Overall fluid balance has been -8.7 L over the past 24 hours and the patient is producing excellent amount of urine output. He remains on a mechanical ventilator on assist control mode with a rate of 26, tidal volume of 450 mL, FiO2 of 50% with a PEEP of 5. The blood gas showed pH of 7.45 with a pCO2 of 62 and pO2 of 62. No major improvement in his oxygenati on as such. This is despite his ongoing diuresis. The patient clinically continues to have extensive multilevel edema both in the upper and lower extremities and the patient has significant scrotal edema. The BMs at 78 with a creatinine of 1.59 and the sodium level is at 139. The white cell count of 9.7 with a hemoglobin of 15 and platelet count of 154. The patient continues to receive vital high-protein at the rate of 58 mL an hour. Antibiotic coverage is with IV cefepime for now. Clinically, the patient is stable. He was given a sedation holiday yesterday. He arouses without adding any major difficulties and he follows simple commands. He is afebrile for now. He does not have COPD, chronic hypoxic respiratory failure, obstructive sleep apnea and diastolic heart failure. 04/11/2022, the patient remains sedated this morning on propofol running at 50 mcg/kg/m. I continue to aggressively diurese this patient. Urine output for yesterday was 11 L and over the past 24 hours was 8.7 L. Net fluid balance remains negative. The edema is improving in his legs and in his arms and his scrotum. His chest x-ray however is still showing moderate-sized bilateral pleural effusion. He remains on a mechanical ventilator on assist control mode with a rate of 26 with a tidal volume of 450 and FiO2 of 50% with a PEEP of 5. Morning blood gases showed day pH of 7.47 with a pCO2 of 67 and pO2 of 65. The patient's sodium levels of 138, potassium is 3.9, BUN is at 87 with a creatinine of 1.7 and his CVP is 10. The patient is afebrile. The patient is hemodynamically stable. He remains in atrial fibrillation and the latest slightly tachycardic this morning. He remains on anticoagulation with eloquent 5 mg by mouth twice a day. Enteral feeding is in the form of vital high-protein at 58 cc/ hour. He is covered with IV antibiotics on an empiric basis and the patient is currently on IV cefepime. The patient remains on Lasix drip 5 mg an hour. He is also Zaroxolyn 5 mg by mouth twice a day. He remains on bronchodilators and steroids. 04/12/2022, the patient is extubated and is off propofol and is off the mechanical ventilator. Is awake and alert and is communicating and is on oxygen at 6 L and his current pulse ox is 95%. The patient's is still being diuresed w ith IV Lasix. He is on Lasix drip 5 mg an hour and oral Zaroxolyn. He has been in significant amount of negative fluid balance and he continues to produce excellent urine output. The overall fluid balance over the past 24 hours has been in the order of(-5.5 L and overall fluid balance negativity has been roughly 20 L over the past 3 days since the Lasix was started. He continues to have some edema in his lower extremities and is scrotal edema has improved significantly. The chest x-ray also shows marked improvement in volume status and improvement in the bilateral pleural effusion and the right hemidiaphragm can be adequately visualized for now. In terms of his blood work, he developed some metabolic alkalosis with a bicarb level of 44 and his BUN is at 87 with a creatinine of 1.4. The white cycles of 15.8 with a hemoglobin of 16.6. Overnight, the patient was on a BiPAP at a pressure of 16/10 cm of water and FiO2 of 40%. His current cardiac rhythm is atrial fibrillation with some tachycardia. The patient remains on anticoagulation with eloquent milligrams by mouth twice a day. He has a triple-lumen catheter in his left IJ. He has COPD with chronic hypoxic/upper Respiratory failure and obstructive sleep apnea. 04/13/2022, the patient is on 6 L of O2 nasal cannula. His calm and comfortable. To continue the diuresis. Fluid balance has been another 2.4 L over the past 24 hours. The patient is otherwise doing well. His BUN is at 79 with a creatinine of 1.2. Serum bicarbs of 50 and the patient has a white cell count of 13.9 with a hemoglobin of 16.2. A repeat chest x-ray was done today and there is significant improvement. Minimal residual pleural effusion the lung bases bilaterally. Overall the volume status is improved considerably on this patient. He is tolerating diet. Mental status is adequate for now. No other significant events otherwise since yesterday. He remains on empiric antibiotic coverage. He was started on a prednisone burst taper. He'll be switched to oral Lasix today. Physical therapy is on the case. We also given 2 doses of Diamox regarding his significant metabolic alkalosis. Objective - Vital Signs Vital signs: Vital Signs Temp 98.3 F 04/13/22 08:00 Pulse 118 H 04/13/22 11:00 Resp 17 04/13/22 11:00 BP 147/104 04/13/22 10:00 Pulse Ox 94 L 04/13/22 11:00 FiO2 40 04/13/22 07:30 Intake & Output 04/12/22 04/13/22 04/13/22 18:59 06:59 18:59 Intake Total 1887 236 682 Output Total 2400 2200 1275 Balance -513 -1964 -593 Weight 148.8 kg Intake: IV 387 161 182 0.9% Sodium Chloride 230 140 70 CVP Pressure Bag 36 21 12 Cefepime 2 gm In Sodium 100 Chloride 0.9% 100 ml @ 25 mls/hr IVPB Q8HR [facility] Rx# :[id number] ceFAZolin 2 gm In Sodium 100 Chloride 0.9% 50 ml @ 100 mls/hr IVPB Q8HR [facility] Rx# :[id number] pressure bag 21 Intake, IV Titration 75 Amount Cefepime 2 gm In Sodium 75 Chloride 0.9% 100 ml @ 25 mls/hr IVPB Q12HR [facility] Rx #:[id number] Oral 1500 500 Output: Urine 2400 2200 1275 Other: Voiding Method Indwelling Catheter Indwelling Catheter Indwelling Catheter ABP, PAP, CO, CI - Last Documented Arterial Blood Pressure 137/84 - Exam No acute distress, awake and alert and the patient is currently on 6 L O2 nasal cannula HEENT examination is grossly unremarkable. Neck supple. Full range of motion. No adenopathy thyromegaly or neck vein distention. Left subclavian triple-lumen catheter in place Cardiovascular examination reveals an irregular rhythm and rate. S1-S2 normal. No S3 or S4. No discernible murmur noted. Lungs reveal bilateral coarse rhonchi, and crackles. Breath sounds equal bilaterally. No wheezes. Abdomen soft, with bowel sounds. No masses or tenderness. the patient has a significant scrotal edema that has gotten significantly worse during this current admission. Extremities are intact. Small left leg wound noted. No cyanosis or clubbing. Mild to moderate edema appreciated. Skin is without rash or lesion. Neurologic examination , Neurologically, the patient is awake and alert and the patient does not have any focal neurological deficit. Cranial nerves are essentially intact. - Labs CBC & Chem 7: 04/13/22 07:41 04/13/22 07:41 Labs: Abnormal Lab Results - Last 24 Hours (Table) 04/12/22 04/12/22 04/12/22 Range/Units 11:34 16:39 19:50 WBC (3.8-10.6) k/uL RBC (4.30-5.90) m/uL Hct (39.0-53.0) % MCHC (31.0-37.0) g/dL Plt Count (150-450) k/uL Neutrophils # (1.3-7.7) k/uL Lymphocytes # (1.0-4.8) k/uL Monocytes # (0-1.0) k/uL Chloride (98-107) mmol/L Carbon Dioxide (22-30) mmol/L BUN (9-20) mg/dL Glucose (74-99) mg/dL POC Glucose (mg/dL) 232 H 205 H 167 H (70-110) mg/dL 04/13/22 04/13/22 04/13/22 Range/Units 06:14 07:41 07:41 WBC 13.9 H (3.8-10.6) k/uL RBC 6.00 H (4.30-5.90) m/uL Hct 54.6 H (39.0-53.0) % MCHC 30.9 L (31.0-37.0) g/dL Plt Count 106 L (150-450) k/uL Neutrophils # 11.9 H (1.3-7.7) k/uL Lymphocytes # 0.6 L (1.0-4.8) k/uL Monocytes # 1.1 H (0-1.0) k/uL Chloride 81 L (98-107) mmol/L Carbon Dioxide 50 H* (22-30) mmol/L BUN 79 H (9-20) mg/dL Glucose 108 H (74-99) mg/dL POC Glucose (mg/dL) 124 H (70-110) mg/dL 04/13/22 Range/Units 11:18 WBC (3.8-10.6) k/uL RBC (4.30-5.90) m/uL Hct (39.0-53.0) % MCHC (31.0-37.0) g/dL Plt Count (150-450) k/uL Neutrophils # (1.3-7.7) k/uL Lymphocytes # (1.0-4.8) k/uL Monocytes # (0-1.0) k/uL Chloride (98-107) mmol/L Carbon Dioxide (22-30) mmol/L BUN (9-20) mg/dL Glucose (74-99) mg/dL POC Glucose (mg/dL) 163 H (70-110) mg/dL Microbiology - Last 24 Hours (Table) 04/11/22 18:38 Blood Culture Gram Stain - Preliminary Blood 04/11/22 18:38 Blood Culture - Final Blood 04/10/22 15:49 Blood Culture Gram Stain - Preliminary Blood Blood Culture - Preliminary Staphylococcus epidermidis Assessment and Plan Plan: Acute hypoxemic respiratory failure secondary to acute diastolic congestive heart failure, and acute exacerbation of chronic obstructive pulmonary disease.clinically improved. Aggressively diuresed. Negative fluid balance more than 20 L. Pleural effusions since subsided. Acute hypercapnic respiratory failure secondary to above. Metabolic alkalosis secondary to aggressive diuresis Bilateral pleural effusion, and further diuresis, improved Atrial fibrillation with a rapid ventricular response, currently on a Cardizem po, oral metoprolol , anticoagulated with Eliquis. Morbid obesity with a BMI of 50 kg/m2. Obstructive sleep apnea, maintained on BiPAP 20/16 along with 2 L of oxygen. Chronic obstructive pulmonary disease, oxygen dependent, FEV1 value 22% of predicted. Small left leg wound, with gram-negative bacilli/presumptive staph. Acute on chronic lower extremity edema secondary to right-sided heart failure/cor pulmonale. Former smoker. plan The patient has been weaned down to 6 L of O2 nasal cannula. This can be further weaned down Change Lasix to 40 mg by mouth twice a day Drop the dose of Zaroxolyn to once a day Give total dose of Diamox 250 mg IV every 12 hours Monitor electrolytes Monitor fluid balance and wean down FiO2 BiPAP overnight Prednisone burst taper Patient is on empiric antibiotic coverage with IV cefepime The family was updated We'll continue the supportive care PTOT evaluation Incentive spirometer IV fluids to KVO Monitor electrolytes Will make further recommendations based on his progress.
--- NOTE | 2022-04-13 15:29 | P.PN ---
Subjective Progress Note Date: 04/11/22 Principal diagnosis: Positive cultures left leg and possible cellulitis Patient is a 56-year-old male with a past medical history significant for COPD presenting to the hospital 4 days ago for evaluation of difficulty in breathing patient symptom has been going on for a couple of weeks before presentation to the hospital and the patient did have difficulty maintaining his O2 sats patient is not getting intubated also noticed to have swelling to the lower simply with some erythema and superficial ulceration culture was showing presented to MRSA and gram-negative on today's evaluation that is 04/11/2022, the patient has been afebrile today, the patient is hemodynamically stable not requiring any pressor support, patient FiO2 is down to 40 %, no significant purulent secretions through the ET or any diarrhea reported by the nursing staff Objective - Vital Signs Vital signs: Vital Signs Temp 98.9 F 04/11/22 08:00 Pulse 152 H 04/11/22 12:00 Resp 24 04/11/22 12:00 BP 96/73 04/11/22 11:00 Pulse Ox 91 L 04/11/22 12:00 FiO2 50 04/11/22 12:00 Intake & Output 04/10/22 04/11/22 04/11/22 18:59 06:59 18:59 Intake Total 814.486 7135.664 598.301 Output Total 5475 3300 2100 Balance -4645.945 -1806.336 -1501.699 Weight 153.1 kg Intake: IV 177 176 96 0.9% Sodium Chloride 120 110 60 CVP Pressure Bag 33 18 pressure bag 57 33 18 Intake, IV Titration 652.055 589.664 164.301 Amount Cefepime 2 gm In Sodium 100 Chloride 0.9% 100 ml @ 25 mls/hr IVPB Q12HR [facility] Rx #:[id number] Furosemide 100 mg In 29.667 70.333 Sodium Chloride 0.9% 90 ml @ 5 MG/HR 5 mls/hr IV .Q20H [facility] Rx#:[id number] propofoL 1,000 mg In 522.388 519.331 164.301 Empty Bag 1 bag @ 15 MCG/ KG/MIN 13.064 mls/hr IV . Q7H40M [facility] Rx#:[id number] Tube Feeding 638 338 Other 90 Output: Urine 5475 3300 2100 Other: Voiding Method Indwelling Catheter Indwelling Catheter Indwelling Catheter ABP, PAP, CO, CI - Last Documented Arterial Blood Pressure 120/72 - Exam GENERAL DESCRIPTION: Middle-age male intubated on the vent RESPIRATORY SYSTEM: Unlabored breathing , decreased breath sounds at bases HEART: S1 S2 regular rate and rhythm , ABDOMEN: Soft , no tenderness EXTREMITIES: Diffuse swelling to bilateral lower extremity minimal erythema - Labs CBC & Chem 7: 04/13/22 07:41 04/13/22 07:41 Labs: Abnormal Lab Results - Last 24 Hours (Table) 04/10/22 04/10/22 04/11/22 Range/Units 17:28 23:19 04:25 Plt Count 136 L (150-450) k/uL Neutrophils # 9.9 H (1.3-7.7) k/uL Lymphocytes # 0.2 L (1.0-4.8) k/uL ABG pH (7.35-7.45) ABG pCO2 (35-45) mmHg ABG pO2 (83-108) mmHg ABG HCO3 (21-25) mmol/L ABG Total CO2 (19-24) mmol/L ABG O2 Saturation (94-97) % Chloride (98-107) mmol/L Carbon Dioxide (22-30) mmol/L BUN (9-20) mg/dL Creatinine (0.66-1.25) mg/dL Glucose (74-99) mg/dL POC Glucose (mg/dL) 160 H 185 H (70-110) mg/dL 04/11/22 04/11/22 04/11/22 Range/Units 04:25 05:36 05:52 Plt Count (150-450) k/uL Neutrophils # (1.3-7.7) k/uL Lymphocytes # (1.0-4.8) k/uL ABG pH 7.47 H (7.35-7.45) ABG pCO2 67 H (35-45) mmHg ABG pO2 65 L (83-108) mmHg ABG HCO3 49 H* (21-25) mmol/L ABG Total CO2 51 H (19-24) mmol/L ABG O2 Saturation 91.7 L (94-97) % Chloride 83 L (98-107) mmol/L Carbon Dioxide 41 H* (22-30) mmol/L BUN 87 H (9-20) mg/dL Creatinine 1.71 H (0.66-1.25) mg/dL Glucose 215 H (74-99) mg/dL POC Glucose (mg/dL) 195 H (70-110) mg/dL 04/11/22 Range/Units 11:39 Plt Count (150-450) k/uL Neutrophils # (1.3-7.7) k/uL Lymphocytes # (1.0-4.8) k/uL ABG pH (7.35-7.45) ABG pCO2 (35-45) mmHg ABG pO2 (83-108) mmHg ABG HCO3 (21-25) mmol/L ABG Total CO2 (19-24) mmol/L ABG O2 Saturation (94-97) % Chloride (98-107) mmol/L Carbon Dioxide (22-30) mmol/L BUN (9-20) mg/dL Creatinine (0.66-1.25) mg/dL Glucose (74-99) mg/dL POC Glucose (mg/dL) 209 H (70-110) mg/dL Microbiology - Last 24 Hours (Table) 04/10/22 15:49 Blood Culture Gram Stain - Preliminary Blood 04/10/22 15:49 Blood Culture - Final Blood 04/10/22 15:45 Gram Stain - Preliminary Sputum Sputum Culture - Preliminary 04/05/22 15:18 Blood Culture - Preliminary Blood No Growth after 120 hours 04/05/22 15:18 Blood Culture - Preliminary Blood No Growth after 120 hours Assessment and Plan (1) Cellulitis Current Visit: Yes Status: Acute Code(s): L03.90 - CELLULITIS, UNSPECIFIED SNOMED Code(s): 212102994 Plan: 1patient presented to hospital with acute respiratory failure currently on the ventilator likely multifactorial in this patient with underlying COPD and not concerning for increased swelling to bilateral lower extremity and some superficial ulceration and redness concerning for possible cellulitis with local culture not showing gram-negative and present to MRSA. 2patient did have improvement in bilateral lower extremity swelling and redness currently covered with the cefepime 3-patient with a new fever and now with a positive blood culture with gram- positive cocci vancomycin will be started while waiting for ID and sensitivity Time with Patient: Less than 30
--- NOTE | 2022-04-13 15:31 | P.PN ---
Subjective Progress Note Date: 04/12/22 Principal diagnosis: Positive cultures left leg and possible cellulitis Patient is a 56-year-old male with a past medical history significant for COPD presenting to the hospital 4 days ago for evaluation of difficulty in breathing patient symptom has been going on for a couple of weeks before presentation to the hospital and the patient did have difficulty maintaining his O2 sats patient is not getting intubated also noticed to have swelling to the lower simply with some erythema and superficial ulceration culture was showing presented to MRSA and gram-negative the patient was extubated afternoon of 04/11/2022 on today's evaluation that is 04/12/2022, the patient remains to be afebrile, the patient is hemodynamically stable not requiring any pressor support, patient is currently breathing comfortably on nasal cannula oxygen. Denies having any chest pain and no worsening cough no abdominal pain or diarrhea Objective - Vital Signs Vital signs: Vital Signs Temp 98.1 F 04/12/22 12:00 Pulse 102 H 04/12/22 13:00 Resp 17 04/12/22 13:00 BP 125/92 04/12/22 13:00 Pulse Ox 94 L 04/12/22 13:00 FiO2 6 04/12/22 09:00 Intake & Output 04/11/22 04/12/22 04/12/22 18:59 06:59 18:59 Intake Total 003.230 0295.167 1246 Output Total 3100 4250 1600 Balance -2355.699 -3205.833 -354 Weight 153.1 kg 150.8 kg Intake: IV 242 338 246 0.9% Sodium Chloride 170 260 110 CVP Pressure Bag 36 39 18 Cefepime 2 gm In Sodium 100 Chloride 0.9% 100 ml @ 25 mls/hr IVPB Q8HR [facility] Rx# :[id number] pressure bag 36 39 18 Intake, IV Titration 164.301 196.167 Amount Cefepime 2 gm In Sodium 100 Chloride 0.9% 100 ml @ 25 mls/hr IVPB Q12HR [facility] Rx #:[id number] Furosemide 100 mg In 96.167 Sodium Chloride 0.9% 90 ml @ 5 MG/HR 5 mls/hr IV .Q20H [facility] Rx#:[id number] propofoL 1,000 mg In 164.301 Empty Bag 1 bag @ 15 MCG/ KG/MIN 13.064 mls/hr IV . Q7H40M [facility] Rx#:[id number] Oral 510 1000 Tube Feeding 338 Output: Urine 3100 4250 1600 Other: Voiding Method Indwelling Catheter Indwelling Catheter Indwelling Catheter ABP, PAP, CO, CI - Last Documented Arterial Blood Pressure 133/92 - Exam GENERAL DESCRIPTION: Middle-age male up in the chair RESPIRATORY SYSTEM: Unlabored breathing , decreased breath sounds at bases HEART: S1 S2 regular rate and rhythm , ABDOMEN: Soft , no tenderness EXTREMITIES: Diffuse swelling to bilateral lower extremity minimal erythema - Labs CBC & Chem 7: 04/13/22 07:41 04/13/22 07:41 Labs: Abnormal Lab Results - Last 24 Hours (Table) 04/11/22 04/11/22 04/11/22 Range/Units 17:45 21:37 23:32 WBC (3.8-10.6) k/uL Plt Count (150-450) k/uL Neutrophils # (1.3-7.7) k/uL Lymphocytes # (1.0-4.8) k/uL Chloride (98-107) mmol/L Carbon Dioxide (22-30) mmol/L BUN (9-20) mg/dL Creatinine (0.66-1.25) mg/dL Glucose (74-99) mg/dL POC Glucose (mg/dL) 152 H 191 H 168 H (70-110) mg/dL 04/12/22 04/12/22 04/12/22 Range/Units 03:55 03:55 06:07 WBC 13.8 H (3.8-10.6) k/uL Plt Count 123 L (150-450) k/uL Neutrophils # 12.6 H (1.3-7.7) k/uL Lymphocytes # 0.3 L (1.0-4.8) k/uL Chloride 81 L (98-107) mmol/L Carbon Dioxide 44 H* (22-30) mmol/L BUN 87 H (9-20) mg/dL Creatinine 1.46 H (0.66-1.25) mg/dL Glucose 164 H (74-99) mg/dL POC Glucose (mg/dL) 169 H (70-110) mg/dL 04/12/22 Range/Units 11:34 WBC (3.8-10.6) k/uL Plt Count (150-450) k/uL Neutrophils # (1.3-7.7) k/uL Lymphocytes # (1.0-4.8) k/uL Chloride (98-107) mmol/L Carbon Dioxide (22-30) mmol/L BUN (9-20) mg/dL Creatinine (0.66-1.25) mg/dL Glucose (74-99) mg/dL POC Glucose (mg/dL) 232 H (70-110) mg/dL Microbiology - Last 24 Hours (Table) 04/11/22 18:38 Blood Culture - Final Blood 04/10/22 15:49 Blood Culture Gram Stain - Preliminary Blood Blood Culture - Preliminary Staphylococcus epidermidis 04/05/22 15:29 Gram Stain - Final Leg - Left Wound Culture - Final Acinetobacter lwoffi grp Methicillin resist S. aureus Enterococcus faecalis Pseudomonas fluorescens/putida 04/05/22 15:18 Blood Culture - Final Blood No Growth after 144 hours 04/05/22 15:18 Blood Culture - Final Blood No Growth after 144 hours 04/10/22 15:49 Blood Culture - Final Blood Assessment and Plan (1) Cellulitis Current Visit: Yes Status: Acute Code(s): L03.90 - CELLULITIS, UNSPECIFIED SNOMED Code(s): 904339850 Plan: 1patient presented to hospital with acute respiratory failure currently on the ventilator likely multifactorial in this patient with underlying COPD and not concerning for increased swelling to bilateral lower extremity and some superficial ulceration and redness concerning for possible cellulitis with local culture not showing gram-negative and present to MRSA. 2patient did have improvement in bilateral lower extremity swelling and redness currently covered with the cefepime 3-patient with a new fever and now with a positive blood culture with gram-posi tive cocci, blood cultures have been finalized with a copious negative staph likely skin contaminant vancomycin discontinued Time with Patient: Less than 30
--- NOTE | 2022-04-13 15:32 | P.PN ---
Subjective Progress Note Date: 04/13/22 Principal diagnosis: Positive cultures left leg and possible cellulitis Patient is a 56-year-old male with a past medical history significant for COPD presenting to the hospital 4 days ago for evaluation of difficulty in breathing patient symptom has been going on for a couple of weeks before presentation to the hospital and the patient did have difficulty maintaining his O2 sats patient is not getting intubated also noticed to have swelling to the lower simply with some erythema and superficial ulceration culture was showing presented to MRSA and gram-negative the patient was extubated afternoon of 04/11/2022 on today's evaluation that is 04/13/2022, the patient continues to be afebrile, the patient is breathing comfortably on 6 L nasal cannula oxygen. The patient denies having any chest pain and no worsening cough no abdominal pain or diarrhea, denies pain to lower extremity Objective - Vital Signs Vital signs: Vital Signs Temp 98.2 F 04/13/22 12:00 Pulse 117 H 04/13/22 12:00 Resp 21 04/13/22 12:00 BP 136/96 04/13/22 12:00 Pulse Ox 94 L 04/13/22 11:35 FiO2 40 04/13/22 07:30 Intake & Output 04/12/22 04/13/22 04/13/22 18:59 06:59 18:59 Intake Total 1887 236 682 Output Total 2400 2200 1275 Balance -513 -1964 -593 Weight 148.8 kg 148.8 kg Intake: IV 387 161 182 0.9% Sodium Chloride 230 140 70 CVP Pressure Bag 36 21 12 Cefepime 2 gm In Sodium 100 Chloride 0.9% 100 ml @ 25 mls/hr IVPB Q8HR OBI Rx# :[id number] ceFAZolin 2 gm In Sodium 100 Chloride 0.9% 50 ml @ 100 mls/hr IVPB Q8HR OBI Rx# :[id number] pressure bag 21 Intake, IV Titration 75 Amount Cefepime 2 gm In Sodium 75 Chloride 0.9% 100 ml @ 25 mls/hr IVPB Q12HR OBI Rx #:[id number] Oral 1500 500 Output: Urine 2400 2200 1275 Other: Voiding Method Indwelling Catheter Indwelling Catheter Indwelling Catheter ABP, PAP, CO, CI - Last Documented Arterial Blood Pressure 137/84 - Exam GENERAL DESCRIPTION: Middle-age male up in the chair RESPIRATORY SYSTEM: Unlabored breathing , decreased breath sounds at bases HEART: S1 S2 regular rate and rhythm , ABDOMEN: Soft , no tenderness EXTREMITIES: Diffuse swelling to bilateral lower extremity minimal erythema - Labs CBC & Chem 7: 04/13/22 07:41 04/13/22 07:41 Labs: Abnormal Lab Results - Last 24 Hours (Table) 04/12/22 04/12/22 04/13/22 Range/Units 16:39 19:50 06:14 WBC (3.8-10.6) k/uL RBC (4.30-5.90) m/uL Hct (39.0-53.0) % MCHC (31.0-37.0) g/dL Plt Count (150-450) k/uL Neutrophils # (1.3-7.7) k/uL Lymphocytes # (1.0-4.8) k/uL Monocytes # (0-1.0) k/uL Chloride (98-107) mmol/L Carbon Dioxide (22-30) mmol/L BUN (9-20) mg/dL Glucose (74-99) mg/dL POC Glucose (mg/dL) 205 H 167 H 124 H (70-110) mg/dL 04/13/22 04/13/22 04/13/22 Range/Units 07:41 07:41 11:18 WBC 13.9 H (3.8-10.6) k/uL RBC 6.00 H (4.30-5.90) m/uL Hct 54.6 H (39.0-53.0) % MCHC 30.9 L (31.0-37.0) g/dL Plt Count 106 L (150-450) k/uL Neutrophils # 11.9 H (1.3-7.7) k/uL Lymphocytes # 0.6 L (1.0-4.8) k/uL Monocytes # 1.1 H (0-1.0) k/uL Chloride 81 L (98-107) mmol/L Carbon Dioxide 50 H* (22-30) mmol/L BUN 79 H (9-20) mg/dL Glucose 108 H (74-99) mg/dL POC Glucose (mg/dL) 163 H (70-110) mg/dL Microbiology - Last 24 Hours (Table) 04/10/22 15:49 Blood Culture Gram Stain - Final Blood Blood Culture - Final Staphylococcus epidermidis 04/11/22 18:38 Blood Culture Gram Stain - Preliminary Blood Blood Culture - Preliminary Coagulase Negative Staph 04/10/22 15:45 Gram Stain - Final Sputum Sputum Culture - Final 04/11/22 18:38 Blood Culture - Final Blood Assessment and Plan (1) Cellulitis Current Visit: Yes Status: Acute Code(s): L03.90 - CELLULITIS, UNSPECIFIED SNOMED Code(s): 028144339 Plan: 1patient presented to hospital with acute respiratory failure currently on the ventilator likely multifactorial in this patient with underlying COPD and not concerning for increased swelling to bilateral lower extremity and some superficial ulceration and redness concerning for possible cellulitis with local culture not showing gram-negative and present to MRSA. 2positive blood culture with gram-positive cocci finalized for staph epi likely contamination her vancomycin was discontinued 3-patient did have improvement in bilateral lower extremity swelling and redness currently covered with the cefepime Time with Patient: Less than 30
[2022-04-13] MEDS: FUROSEMIDE 40 MG TAB PO SCH (15:57)
[2022-04-13 17:24] LABS: Glucose,Whole Blood 207 mg/dL (70-110)
--- NOTE | 2022-04-13 20:16 | P.PN ---
Subjective This is a 56-year-old male who is being monitored in the intensive care unit secondary to acute hypoxic respiratory failure as well as acute CHF exa cerbation. Patient found to be in atrial fibrillation with rapid ventricular rate post intubation. The patient is currently intubated with FiO2 50%, current oxygen saturations 89%. Cardizem gtt weaned yesterday, he is on oral cardizem. Chest x-ray this morning showing pulmonary vascular congestion and bilateral pleural effusions correlate for congestive heart failure. Sodium stable at 137, creatinine is trending down at 1.68, peaked yesterday at 1.74. Infectious disease has been consulted for wound cultures positive for presumptive MRSA and gram negative bacilli to the left leg and is currently maintained on IV cefepime and IV vancomycin pending finalized cultures. He continues on IV Lasix every 12, IV steroids 60 every 6 hours. 04/10/2022 Patient continues to be monitored in intensive care unit, on mechanical ventilator with FiO2 of 50%. Remains tachycardic in the 110-120s. He also had temperature of 100 this morning. Chest xray today showing congestive heart failure with likely associated effusions. Pneumonia not excluded. Patient started on lasix gtt yesterday afternoon, he has total of 3.8 L off in the last 24 hours, He is down 5 kg since yesterday, overall his weight is up since admission. Creatinine has improved today 1.59. Cultures are being repeated with concern of fever. He is being followed closely by pulmonary, cardiology, infectious disease. 04/11/2022 Patient is monitored closely in intensive care unit, he is currently intubated on mechanical ventilator with FiO2 of 50%. He has been maintained on lasix gtt currently at 5 with urine output of 8.7 L in the last 24 hours. He continues to be sedated with propofol. Wound culture has finalized to gram negative bacilli/MRSA/enterococcus and patient is being followed by infectious disease on IV cefepime. Blood cultures were taken yesterday and are showing gram positive cocci in clusters, IV vancomycin has been started today, and repeat blood cultures taken. Follow up chest xray today showing pulmonary vascular congestion with moderate effusions/atelectasis vs. consolidation. He is receiving enteral tube feedings with vital AF and blood sugars have been elevated in the 180s to 200s. For this novolog was increased to 2 units with scale every 6 hours and also levemir HS has been added for better glycemic control. Procalcitonin follow up 0.09. Creatinine is slightly increased today at 1.71. Patient remains in atrial fibrillation with elevated heart rate in the 130s, and continues on oral cardizem. T-max over night 100.1, and blood pressure 120/70s. Patient is being followed closely by cardiology, pulmonary artificial stone applicator, and infectious disease services. 04/12/2022 Patient is evaluated in intensive care unit sitting up in chair. Patient was extubated yesterday around 1330. Currently he is on oxygen support with 6L nasal cannula saturation 93%. He denies chest pain, no shortness of breath. He is tolerating some liquid diet. He continues with negative fluid balance about -3.7 L in the last 24 hours and lasix gtt has been discontinued. IV lasix 40 mg every 12 hours has been started. Repeat chest xray from today showing persistent retrocardiac atelectasis and consolidation. Blood culture showing staph epi possibly a contaminent, repeat is pending. Continues on IV cefepime managed by infectious disease. Patient continues in atrial fibrillation with heart rate in the 140s, cardiology has increased oral cardizem and started patient on metoprolol today. Labs reviewed today showing white count 13.8, BUN 87, creatinine 1.46, blood glucose in the 180s. 04/13/2022 Patient lying in bed still complaining of from dyspnea with little cough and phlegm but no chest pain he still saturating 6 L per minute. remains on cefepime and prednisone 40 mg for his COPD and positive blood culture with staph epidermidis and coagulase-negative staph. While his wound culture is growing MRSA, pseudomonas, entero-cocci, ID team on the case. Also he is on Eliquis 5 mg. Troponin is mildly elevated but patient with no chest pain. Cardiology team on the case Also echocardiogram showed ejection fraction of 50-55% Chest x-ray showing mild CHF with right basal infiltrate. On examination he has decreased breath sounds in bilateral patellar ligament edema 2+ Patient states he is on 3 L of oxygen at home for his COPD and his unit manager rn is Dr. Gregory Cisneros catheter in place with clear yellow urine Objective - Vital Signs Vital signs: Vital Signs Temp 98.2 F 04/13/22 12:00 Pulse 117 H 04/13/22 12:00 Resp 21 04/13/22 12:00 BP 136/96 04/13/22 12:00 Pulse Ox 94 L 04/13/22 11:35 FiO2 40 04/13/22 07:30 Intake & Output 04/12/22 04/13/22 04/13/22 18:59 06:59 18:59 Intake Total 1887 236 682 Output Total 2400 2200 1275 Balance -513 -1964 -593 Weight 148.8 kg 148.8 kg Intake: IV 387 161 182 0.9% Sodium Chloride 230 140 70 CVP Pressure Bag 36 21 12 Cefepime 2 gm In Sodium 100 Chloride 0.9% 100 ml @ 25 mls/hr IVPB Q8HR OBI Rx# :[id number] ceFAZolin 2 gm In Sodium 100 Chloride 0.9% 50 ml @ 100 mls/hr IVPB Q8HR OBI Rx# :[id number] pressure bag 21 Intake, IV Titration 75 Amount Cefepime 2 gm In Sodium 75 Chloride 0.9% 100 ml @ 25 mls/hr IVPB Q12HR OBI Rx #:[id number] Oral 1500 500 Output: Urine 2400 2200 1275 Other: Voiding Method Indwelling Catheter Indwelling Catheter Indwelling Catheter ABP, PAP, CO, CI - Last Documented Arterial Blood Pressure 137/84 - Exam GENERAL: The patient is alert and oriented x3, not in any acute distress. Well developed, well nourished. HEENT: Pupils are round and equally reacting to light. EOMI. No scleral icterus. No conjunctival pallor. Normocephalic, atraumatic. No pharyngeal erythema. No thyromegaly. CARDIOVASCULAR: S1 and S2 present. No murmurs, rubs, or gallops. PULMONARY: Chest is clear to auscultation, no wheezing . Mild basal crepitation ABDOMEN: Soft, nontender, nondistended, normoactive bowel sounds. No palpable organomegaly. MUSCULOSKELETAL: No joint swelling or deformity. EXTREMITIES: No cyanosis, clubbing, or pedal edema. NEUROLOGICAL: Gross neurological examination did not reveal any focal deficits. SKIN: No rashes. no petechiae. - Labs CBC & Chem 7: 04/13/22 07:41 04/13/22 07:41 Labs: Abnormal Lab Results - Last 24 Hours (Table) 04/12/22 04/12/22 04/13/22 Range/Units 16:39 19:50 06:14 WBC (3.8-10.6) k/uL RBC (4.30-5.90) m/uL Hct (39.0-53.0) % MCHC (31.0-37.0) g/dL Plt Count (150-450) k/uL Neutrophils # (1.3-7.7) k/uL Lymphocytes # (1.0-4.8) k/uL Monocytes # (0-1.0) k/uL Chloride (98-107) mmol/L Carbon Dioxide (22-30) mmol/L BUN (9-20) mg/dL Glucose (74-99) mg/dL POC Glucose (mg/dL) 205 H 167 H 124 H (70-110) mg/dL 04/13/22 04/13/22 04/13/22 Range/Units 07:41 07:41 11:18 WBC 13.9 H (3.8-10.6) k/uL RBC 6.00 H (4.30-5.90) m/uL Hct 54.6 H (39.0-53.0) % MCHC 30.9 L (31.0-37.0) g/dL Plt Count 106 L (150-450) k/uL Neutrophils # 11.9 H (1.3-7.7) k/uL Lymphocytes # 0.6 L (1.0-4.8) k/uL Monocytes # 1.1 H (0-1.0) k/uL Chloride 81 L (98-107) mmol/L Carbon Dioxide 50 H* (22-30) mmol/L BUN 79 H (9-20) mg/dL Glucose 108 H (74-99) mg/dL POC Glucose (mg/dL) 163 H (70-110) mg/dL Microbiology - Last 24 Hours (Table) 04/10/22 15:49 Blood Culture Gram Stain - Final Blood Blood Culture - Final Staphylococcus epidermidis 04/11/22 18:38 Blood Culture Gram Stain - Preliminary Blood Blood Culture - Preliminary Coagulase Negative Staph 04/10/22 15:45 Gram Stain - Final Sputum Sputum Culture - Final 04/11/22 18:38 Blood Culture - Final Blood Assessment and Plan Assessment: Acute hypoxic respiratory failure secondary to acute diastolic CHF exacerbation and acute COPD exacerbation, extubated on 04/12/22, currently on 6L hi flow cannula. Atrial fibrillation rate with rapid ventricular rate on oral cardizem. And Eliquis Left lower extremity ulceration and possible cellulitis with culture showing presumptive MRSA/gram neg bacili Gram Positive bacteremia Hypertension Obstructive sleep apnea History of COPD, oxygen dependent History atrial flutter previous ablation Chronic lower extremity edema Former Smoker GI Prophylaxis Protonix DVT Prophylaxis Eliquis Full Code Plan: Patient is monitored closely in ICU, has been extubated on 04/12/22 Continues on empiric antibiotics of cefepime Lasix gtt has been transitioned to IV push lasix continue with oral Lasix 40 mg twice daily Continue with Cardizem and metoprolol tartrate controlled Continues on oral prednisone, bronchodilators Blood cultures reviewed Monitor blood glucose DVT prophylaxis: Eliquis GI prophylaxis Pepcid Prognosis is guarded
[2022-04-13] MEDS: INSULIN DETEMIR (LEVEMIR) 100 UNIT/ML SYR SQ SCH (20:29)
[2022-04-13 20:33] LABS: Glucose,Whole Blood 210 mg/dL (70-110)
[2022-04-14] MEDS: CEFEPIME 2 GM in SODIUM CHLORIDE 0.9% 100 ML IVPB SCH ×3 (00:36→16:28)
[2022-04-14] MEDS: IPRATROPIUM-ALBUTEROL 3 ML NEB INHALATION SCH (00:51)
[2022-04-14] MEDS: HYDROmorphone 1 MG/ML 1 ML SYRINGE IVP PRN ×3 (06:00→17:01)
[2022-04-14 06:11] LABS: Glucose,Whole Blood 123 mg/dL (70-110)
[2022-04-14] MEDS: INSULIN ASPART (NovoLOG) 100 UNIT/ML VIAL SQ SCH ×8 (06:30→21:03)
[2022-04-14] MEDS: PANTOPRAZOLE 40 MG/10 ML VIAL IVP SCH (07:22)
--- NOTE | 2022-04-14 07:40 | XR ---
EXAMINATION TYPE: XR chest 1V portable DATE OF EXAM: 04/14/2022 COMPARISON: Chest x-ray 04/13/2022 HISTORY: Congestive heart failure, COPD TECHNIQUE: Single frontal view of the chest is obtained. FINDINGS: Bibasilar density persists. The heart remains enlarged. No evident pneumothorax. There is some prominence of the central vascularity, interstitium. There are overlying leads. Left-sided centr al venous catheter has been removed. IMPRESSION: Cardiomegaly with basilar effusions and associated atelectasis versus edema, difficult t o exclude congestive heart failure, pneumonia not excluded.
[2022-04-14] MEDS: APIXABAN 5 MG TAB PO SCH ×2 (08:15→21:01)
[2022-04-14] MEDS: DILTIAZEM CD 180 MG CAP.ER.24H PO SCH (08:15)
[2022-04-14] MEDS: predniSONE 20 MG TAB PO SCH (08:16)
[2022-04-14] MEDS: METOPROLOL TARTRATE 25 MG TAB PO SCH ×2 (08:16→21:02)
[2022-04-14] MEDS: metOLazone 5 MG TAB PO SCH (08:16)
[2022-04-14] MEDS: FUROSEMIDE 40 MG TAB PO SCH ×2 (08:16→16:29)
[2022-04-14] MEDS: FAMOTIDINE 20 MG TAB PO SCH ×2 (08:16→21:02)
[2022-04-14] MEDS: NITROGLYCERIN OINT 1 INCH/GM PACKET TOPICAL SCH ×4 (08:19→21:04)
[2022-04-14 11:02] LABS: Basophils % (A) 0 %; Eosinophils # (A) 0.2 k/uL (0-0.7); Eosinophils % (A) 1 %; HCT 53.3 % (39.0-53.0); HGB 16.6 gm/dL (13.0-17.5); Hypochromasia Marked; Lymphocytes # (A) 0.8 k/uL (1.0-4.8); Lymphocytes % (A) 6 %; MCH 28.4 pg (25.0-35.0); MCHC 31.1 g/dL (31.0-37.0); MCV 91.4 fL (80.0-100.0); Mean Platelet Volume 10.7; Monocytes # (A) 1.1 k/uL (0-1.0); Monocytes % (A) 8 %; Neutrophils # (A) 11.2 k/uL (1.3-7.7); Neutrophils % (A) 84 %; RBC 5.83 m/uL (4.30-5.90); WBC 13.3 k/uL (3.8-10.6)
[2022-04-14 11:35] LABS: Calcium 8.2 mg/dL (8.4-10.2); Potassium 3.7 mmol/L (3.5-5.1)
[2022-04-14 11:58] LABS: Glucose,Whole Blood 141 mg/dL (70-110)
--- NOTE | 2022-04-14 12:30 | P.PN ---
Subjective Progress Note Date: 04/14/22 This is uRben Darby NP, I'm dictating on behalf of Dr. Dickerson's H&P and A&P. Patient was interviewed and examined. Patient is a pleasant 56-year-old male who initially presented with congestive heart failure, A. fib, and COPD. Patient currently continues on BiPAP. He was recently extubated a few days ago. Yesterday oral Cardizem was added, 120 mg in the evening. His heart rate continues to run in the mid 100s to 1 teens. Overall the patient reports that he feels better and appears to be doing well. GENERAL: Well-appearing, well-nourished and in no acute distress. NECK: Supple without JVD or thyromegaly. LUNGS: Breath sounds diminished but clear to auscultation bilaterally. Respiration equal and unlabored. No wheezes, rales or rhonchi. HEART: Regular rate and rhythm without murmurs, rubs or gallops. S1 and S2 heard. EXTREMITIES: Normal range of motion, no edema. No clubbing or cyanosis. Peripheral pulses intact and strong. VITALS: Temp 97.8, pulse 106, respirations 18, blood pressure 137/80, O2 saturation 96% on BiPAP TELEMETRY: Atrial fibrillation with rapid ventricular response LABS: White count 13.3, hemoglobin 16.6, sodium 136, potassium 3.7, chloride 82, carbon dioxide 44, B1 64, creatinine 1.4, calcium 8.2 IMPRESSION: Atrial fibrillation, rate improving, on anticoagulation Congestive heart failure, preserved ejection fraction COPD exacerbation, currently on BiPAP Elevated troponins, flat trend Morbid obesity, BMI 50 Venous stasis ulcer, positive for gram-negative bacilli History of atrial flutter, ablation 07/27/2019 PLAN: Continue a.m. and p.m. doses of Cardizem as ordered. Cardizem will need upwards of 5 days in order to work effectively. Continue rate control strategy. Further recommendations based on the patient's clinical course. Objective - Vital Signs Vital signs: Vital Signs Temp 98.4 F 04/14/22 08:30 Pulse 106 H 04/14/22 08:30 Resp 18 04/14/22 08:30 BP 137/80 04/14/22 08:30 Pulse Ox 96 04/14/22 08:30 FiO2 40 04/14/22 04:04 Intake & Output 04/13/22 04/14/22 04/14/22 18:59 06:59 18:59 Intake Total 682 600 375 Output Total 2094 1450 1250 Balance -5766 -303 -991 Weight 148.8 kg Intake: IV 182 100 15 0.9% Sodium Chloride 70 CVP Pressure Bag 12 Cefepime 2 gm In Sodium 100 Chloride 0.9% 100 ml @ 25 mls/hr IVPB Q8HR OBI Rx# :[id number] Invasive Line 2 10 Invasive Line 4 5 ceFAZolin 2 gm In Sodium 100 Chloride 0.9% 50 ml @ 100 mls/hr IVPB Q8HR OBI Rx# :[id number] Oral 500 500 360 Output: Urine 2094 1450 1250 Other: Voiding Method Indwelling Catheter Indwelling Catheter Indwelling Catheter # Bowel Movements 1 ABP, PAP, CO, CI - Last Documented Arterial Blood Pressure 137/84 - Labs CBC & Chem 7: 04/14/22 10:15 04/14/22 10:15 Labs: Abnormal Lab Results - Last 24 Hours (Table) 04/13/22 04/13/22 04/14/22 Range/Units 17:22 20:31 06:08 WBC (3.8-10.6) k/uL Hct (39.0-53.0) % Sodium (137-145) mmol/L Chloride (98-107) mmol/L Carbon Dioxide (22-30) mmol/L BUN (9-20) mg/dL Creatinine (0.66-1.25) mg/dL Glucose (74-99) mg/dL POC Glucose (mg/dL) 207 H 210 H 123 H (70-110) mg/dL Calcium (8.4-10.2) mg/dL 04/14/22 04/14/22 04/14/22 Range/Units 10:15 10:15 11:43 WBC 13.3 H (3.8-10.6) k/uL Hct 53.3 H (39.0-53.0) % Sodium 136 L (137-145) mmol/L Chloride 82 L (98-107) mmol/L Carbon Dioxide 44 H* (22-30) mmol/L BUN 64 H (9-20) mg/dL Creatinine 1.40 H (0.66-1.25) mg/dL Glucose 145 H (74-99) mg/dL POC Glucose (mg/dL) 141 H (70-110) mg/dL Calcium 8.2 L (8.4-10.2) mg/dL Microbiology - Last 24 Hours (Table) 04/10/22 15:49 Blood Culture Gram Stain - Final Blood Blood Culture - Final Staphylococcus epidermidis 04/11/22 18:38 Blood Culture Gram Stain - Preliminary Blood Blood Culture - Preliminary Coagulase Negative Staph 04/10/22 15:45 Gram Stain - Final Sputum Sputum Culture - Final
--- NOTE | 2022-04-14 12:52 | P.PN ---
Subjective Progress Note Date: 04/14/22 On today's evaluation of 04/09/2022, the patient is being seen for a follow-up. He is a 56-year-old gentleman with known history of diastolic heart failure, COPD, chronic hypoxic and hypercapnic respiratory failure and the patient also has obstructive sleep apnea maintained on a BiPAP at a potential 20/16 cm of water along with oxygen at 2 L/m nasal cannula. The patient also has history of liquids. At this point in time, the patient is intubated on a mechanical ventilator for respiratory failure. The patient remains on propofol which is running at 40 mcg/kg/m. The patient is on a mechanical ventilator assist control mode with a rate of 26 with a tidal volume of 450 and FiO2 of 50% with a PEEP of 5. The chest x-ray from today was noted and the patient has adequate positioning of the orotracheal and orogastric tube. The chest x-ray from today is showing that she was back up pulmonary infiltrates and obvious back or pleural effusions. Based on a previous chest x-ray that was on today's ago, the chest x-ray findings are essentially unchanged. The patient had an echocardiogram during this current admission that was done on 04/06/2022 and echo showed a preserved LV function with an ejection fraction of 50-55%. There was no structural or valvular abnormalities noted. The blood work from today shows a white cell count of 9.0 with hemoglobin of 14.1 and a platelet count of 166. Sodium is 137, again is at 74 with a creatinine of 1.6 and a potassium level of 4.6 with a serum bicarb of 44. The patient's blood gas from today shows a pH of 7.38 with episodes of 59 and pO2 of 62. The patient is afebrile. Current cardiac rhythm is a chest fibrillation. The patient is slightly t achycardic. The patient's is on" initial liquids 5 mg by mouth twice a day. He remains on IV cefepime as a broad-spectrum of the cover antibiotic coverage in combination with vancomycin. He is also on no pressors for now. He is receiving enteral feeding for social support and is currently on vital high- protein at the rate of 40 mL an hour. He is on IV Lasix. The overall fluid balance over the past 24 hours has been +1.2 L. 04/10/2022, I'm seeing the patient for a follow-up. This morning, the patient remains on propofol at 45 mcg/kg/m. His adequately sedated and is calm and comfortable. The triple-lumen catheter was inserted yesterday into his left IJ. The chest x-ray from today showing stable pulmonary vascular congestion and moderate to large bilateral pleural effusions. Note that I started the patient on aggressive diuresis yesterday. He is currently on Lasix drip at 10 mg an hour and is also on Zaroxolyn. Overall fluid balance has been -8.7 L over the past 24 hours and the patient is producing excellent amount of urine output. He remains on a mechanical ventilator on assist control mode with a rate of 26, tidal volume of 450 mL, FiO2 of 50% with a PEEP of 5. The blood gas showed pH of 7.45 with a pCO2 of 62 and pO2 of 62. No major improvement in his oxygenati on as such. This is despite his ongoing diuresis. The patient clinically continues to have extensive multilevel edema both in the upper and lower extremities and the patient has significant scrotal edema. The BMs at 78 with a creatinine of 1.59 and the sodium level is at 139. The white cell count of 9.7 with a hemoglobin of 15 and platelet count of 154. The patient continues to receive vital high-protein at the rate of 58 mL an hour. Antibiotic coverage is with IV cefepime for now. Clinically, the patient is stable. He was given a sedation holiday yesterday. He arouses without adding any major difficulties and he follows simple commands. He is afebrile for now. He does not have COPD, chronic hypoxic respiratory failure, obstructive sleep apnea and diastolic heart failure. 04/11/2022, the patient remains sedated this morning on propofol running at 50 mcg/kg/m. I continue to aggressively diurese this patient. Urine output for yesterday was 11 L and over the past 24 hours was 8.7 L. Net fluid balance remains negative. The edema is improving in his legs and in his arms and his scrotum. His chest x-ray however is still showing moderate-sized bilateral pleural effusion. He remains on a mechanical ventilator on assist control mode with a rate of 26 with a tidal volume of 450 and FiO2 of 50% with a PEEP of 5. Morning blood gases showed day pH of 7.47 with a pCO2 of 67 and pO2 of 65. The patient's sodium levels of 138, potassium is 3.9, BUN is at 87 with a creatinine of 1.7 and his CVP is 10. The patient is afebrile. The patient is hemodynamically stable. He remains in atrial fibrillation and the latest slightly tachycardic this morning. He remains on anticoagulation with eloquent 5 mg by mouth twice a day. Enteral feeding is in the form of vital high-protein at 58 cc/ hour. He is covered with IV antibiotics on an empiric basis and the patient is currently on IV cefepime. The patient remains on Lasix drip 5 mg an hour. He is also Zaroxolyn 5 mg by mouth twice a day. He remains on bronchodilators and steroids. 04/12/2022, the patient is extubated and is off propofol and is off the mechanical ventilator. Is awake and alert and is communicating and is on oxygen at 6 L and his current pulse ox is 95%. The patient's is still being diuresed w ith IV Lasix. He is on Lasix drip 5 mg an hour and oral Zaroxolyn. He has been in significant amount of negative fluid balance and he continues to produce excellent urine output. The overall fluid balance over the past 24 hours has been in the order of(-5.5 L and overall fluid balance negativity has been roughly 20 L over the past 3 days since the Lasix was started. He continues to have some edema in his lower extremities and is scrotal edema has improved significantly. The chest x-ray also shows marked improvement in volume status and improvement in the bilateral pleural effusion and the right hemidiaphragm can be adequately visualized for now. In terms of his blood work, he developed some metabolic alkalosis with a bicarb level of 44 and his BUN is at 87 with a creatinine of 1.4. The white cycles of 15.8 with a hemoglobin of 16.6. Overnight, the patient was on a BiPAP at a pressure of 16/10 cm of water and FiO2 of 40%. His current cardiac rhythm is atrial fibrillation with some tachycardia. The patient remains on anticoagulation with eloquent milligrams by mouth twice a day. He has a triple-lumen catheter in his left IJ. He has COPD with chronic hypoxic/upper Respiratory failure and obstructive sleep apnea. 04/13/2022, the patient is on 6 L of O2 nasal cannula. His calm and comfortable. To continue the diuresis. Fluid balance has been another 2.4 L over the past 24 hours. The patient is otherwise doing well. His BUN is at 79 with a creatinine of 1.2. Serum bicarbs of 50 and the patient has a white cell count of 13.9 with a hemoglobin of 16.2. A repeat chest x-ray was done today and there is significant improvement. Minimal residual pleural effusion the lung bases bilaterally. Overall the volume status is improved considerably on this patient. He is tolerating diet. Mental status is adequate for now. No other significant events otherwise since yesterday. He remains on empiric antibiotic coverage. He was started on a prednisone burst taper. He'll be switched to oral Lasix today. Physical therapy is on the case. We also given 2 doses of Diamox regarding his significant metabolic alkalosis. 04/14/2022, the patient remains on 6 L of oxygen nasal cannula. Doing well. No specific complaints. Continues to diabetes and he remains in negative fluid balance. The fluid balance has been -2.2 L over the past 24 hours. The patient meanwhile has a white cell count of 13.3 hemoglobin 60.2. BUN is at 64 with a creatinine of 1.4 episode of numbness 136. He is currently on Lasix 40 mg by mouth twice a day and is also Zaroxolyn 5 mg by mouth daily. He is on a prednisone burst taper. Chest x-ray findings are stable. Objective - Vital Signs Vital signs: Vital Signs Temp 97.8 F 04/14/22 12:05 Pulse 76 04/14/22 12:05 Resp 20 04/14/22 12:05 BP 119/76 04/14/22 12:05 Pulse Ox 95 04/14/22 12:05 FiO2 40 04/14/22 04:04 Intake & Output 04/13/22 04/14/22 04/14/22 18:59 06:59 18:59 Intake Total 682 600 375 Output Total 9236 8820 1250 Balance -2995 -342 -711 Weight 148.8 kg Intake: IV 182 100 15 0.9% Sodium Chloride 70 CVP Pressure Bag 12 Cefepime 2 gm In Sodium 100 Chloride 0.9% 100 ml @ 25 mls/hr IVPB Q8HR [facility] Rx# :[id number] Invasive Line 2 10 Invasive Line 4 5 ceFAZolin 2 gm In Sodium 100 Chloride 0.9% 50 ml @ 100 mls/hr IVPB Q8HR [facility] Rx# :[id number] Oral 500 500 360 Output: Urine 2095 1450 1250 Other: Voiding Method Indwelling Catheter Indwelling Catheter Indwelling Catheter # Bowel Movements 1 ABP, PAP, CO, CI - Last Documented Arterial Blood Pressure 137/84 - Exam No acute distress, awake and alert and the patient is currently on 6 L O2 nasal cannula HEENT examination is grossly unremarkable. Neck supple. Full range of motion. No adenopathy thyromegaly or neck vein distention. Left subclavian triple-lumen catheter in place Cardiovascular examination reveals an irregular rhythm and rate. S1-S2 normal. No S3 or S4. No discernible murmur noted. Lungs reveal bilateral coarse rhonchi, and crackles. Breath sounds equal bilaterally. No wheezes. Abdomen soft, with bowel sounds. No masses or tenderness. the patient has a significant scrotal edema that has gotten significantly worse during this current admission. Extremities are intact. Small left leg wound noted. No cyanosis or clubbing. Mild to moderate edema appreciated. Skin is without rash or lesion. Neurologic examination , Neurologically, the patient is awake and alert and the patient does not have any focal neurological deficit. Cranial nerves are essentially intact. - Labs CBC & Chem 7: 04/14/22 10:04/14/22 10:15 Labs: Abnormal Lab Results - Last 24 Hours (Table) 04/13/22 04/13/22 04/14/22 Range/Units 17:22 20:31 06:08 WBC (3.8-10.6) k/uL Hct (39.0-53.0) % Sodium (137-145) mmol/L Chloride (98-107) mmol/L Carbon Dioxide (22-30) mmol/L BUN (9-20) mg/dL Creatinine (0.66-1.25) mg/dL Glucose (74-99) mg/dL POC Glucose (mg/dL) 207 H 210 H 123 H (70-110) mg/dL Calcium (8.4-10.2) mg/dL 04/14/22 04/14/22 04/14/22 Range/Units 10: 10: 11:43 WBC 13.3 H (3.8-10.6) k/uL Hct 53.3 H (39.0-53.0) % Sodium 136 L (137-145) mmol/L Chloride 82 L (98-107) mmol/L Carbon Dioxide 44 H* (22-30) mmol/L BUN 64 H (9-20) mg/dL Creatinine 1.40 H (0.66-1.25) mg/dL Glucose 145 H (74-99) mg/dL POC Glucose (mg/dL) 141 H (70-110) mg/dL Calcium 8.2 L (8.4-10.2) mg/dL Microbiology - Last 24 Hours (Table) 04/10/22 15:49 Blood Culture Gram Stain - Final Blood Blood Culture - Final Staphylococcus epidermidis 04/11/22 18:38 Blood Culture Gram Stain - Preliminary Blood Blood Culture - Preliminary Coagulase Negative Staph 04/10/22 15:45 Gram Stain - Final Sputum Sputum Culture - Final Assessment and Plan Plan: Acute hypoxemic respiratory failure secondary to acute diastolic congestive heart failure, and acute exacerbation of chronic obstructive pulmonary disease.clinically improved. Aggressively diuresed. Negative fluid balance more than 20 L. Pleural effusions since subsided. Clinically improved and the patient is currently extubated on 6 L O2 nasal cannula. Chest x-ray was also noted. Acute hypercapnic respiratory failure secondary to above. Metabolic alkalosis secondary to aggressive diuresis Bilateral pleural effusion, and further diuresis, improved Atrial fibrillation with a rapid ventricular response, currently on a Cardizem po, oral metoprolol , anticoagulated with Eliquis. Morbid obesity with a BMI of 50 kg/m2. Obstructive sleep apnea, maintained on BiPAP 20/16 along with 2 L of oxygen. Chronic obstructive pulmonary disease, oxygen dependent, FEV1 value 22% of predicted. Small left leg wound, with gram-negative bacilli/presumptive staph. Acute on chronic lower extremity edema secondary to right-sided heart failure/cor pulmonale. Former smoker. plan Continues to improve clinically The patient continued to diabetes Wean down FiO2 currently on 6 L Continue Lasix and Zaroxolyn 40 mg of Lasix twice a day and Zaroxolyn 5 mg once a day Given to those of Diamox yesterday Serum bicarb is down to 44 Monitor electrolytes Monitor fluid balance and wean down FiO2 BiPAP overnight Prednisone burst taper Patient is on empiric antibiotic coverage with IV cefepime The family was updated We'll continue the supportive care PTOT evaluation Incentive spirometer IV fluids to KVO Monitor electrolytes Will make further recommendations based on his progress.
[2022-04-14 14:04] LABS: Platelet Count 91 k/uL (150-450)
--- NOTE | 2022-04-14 15:01 | P.PN ---
Subjective This is a 56-year-old male who is being monitored in the intensive care unit secondary to acute hypoxic respiratory failure as well as acute CHF exa cerbation. Patient found to be in atrial fibrillation with rapid ventricular rate post intubation. The patient is currently intubated with FiO2 50%, current oxygen saturations 89%. Cardizem gtt weaned yesterday, he is on oral cardizem. Chest x-ray this morning showing pulmonary vascular congestion and bilateral pleural effusions correlate for congestive heart failure. Sodium stable at 137, creatinine is trending down at 1.68, peaked yesterday at 1.74. Infectious disease has been consulted for wound cultures positive for presumptive MRSA and gram negative bacilli to the left leg and is currently maintained on IV cefepime and IV vancomycin pending finalized cultures. He continues on IV Lasix every 12, IV steroids 60 every 6 hours. 04/10/2022 Patient continues to be monitored in intensive care unit, on mechanical ventilator with FiO2 of 50%. Remains tachycardic in the 110-120s. He also had temperature of 100 this morning. Chest xray today showing congestive heart failure with likely associated effusions. Pneumonia not excluded. Patient started on lasix gtt yesterday afternoon, he has total of 3.8 L off in the last 24 hours, He is down 5 kg since yesterday, overall his weight is up since admission. Creatinine has improved today 1.59. Cultures are being repeated with concern of fever. He is being followed closely by pulmonary, cardiology, infectious disease. 04/11/2022 Patient is monitored closely in intensive care unit, he is currently intubated on mechanical ventilator with FiO2 of 50%. He has been maintained on lasix gtt currently at 5 with urine output of 8.7 L in the last 24 hours. He continues to be sedated with propofol. Wound culture has finalized to gram negative bacilli/MRSA/enterococcus and patient is being followed by infectious disease on IV cefepime. Blood cultures were taken yesterday and are showing gram positive cocci in clusters, IV vancomycin has been started today, and repeat blood cultures taken. Follow up chest xray today showing pulmonary vascular congestion with moderate effusions/atelectasis vs. consolidation. He is receiving enteral tube feedings with vital AF and blood sugars have been elevated in the 180s to 200s. For this novolog was increased to 2 units with scale every 6 hours and also levemir HS has been added for better glycemic control. Procalcitonin follow up 0.09. Creatinine is slightly increased today at 1.71. Patient remains in atrial fibrillation with elevated heart rate in the 130s, and continues on oral cardizem. T-max over night 100.1, and blood pressure 120/70s. Patient is being followed closely by cardiology, pulmonary carpenter maintenance, and infectious disease services. 04/12/2022 Patient is evaluated in intensive care unit sitting up in chair. Patient was extubated yesterday around 1330. Currently he is on oxygen support with 6L nasal cannula saturation 93%. He denies chest pain, no shortness of breath. He is tolerating some liquid diet. He continues with negative fluid balance about -3.7 L in the last 24 hours and lasix gtt has been discontinued. IV lasix 40 mg every 12 hours has been started. Repeat chest xray from today showing persistent retrocardiac atelectasis and consolidation. Blood culture showing staph epi possibly a contaminent, repeat is pending. Continues on IV cefepime managed by infectious disease. Patient continues in atrial fibrillation with heart rate in the 140s, cardiology has increased oral cardizem and started patient on metoprolol today. Labs reviewed today showing white count 13.8, BUN 87, creatinine 1.46, blood glucose in the 180s. 04/13/2022 Patient lying in bed still complaining of from dyspnea with little cough and phlegm but no chest pain he still saturating 6 L per minute. remains on cefepime and prednisone 40 mg for his COPD and positive blood culture with staph epidermidis and coagulase-negative staph. While his wound culture is growing MRSA, pseudomonas, entero-cocci, ID team on the case. Also he is on Eliquis 5 mg. Troponin is mildly elevated but patient with no chest pain. Cardiology team on the case Also echocardiogram showed ejection fraction of 50-55% Chest x-ray showing mild CHF with right basal infiltrate. On examination he has decreased breath sounds in bilateral patellar ligament edema 2+ Patient states he is on 3 L of oxygen at home for his COPD and his digestion operator is Dr. Gregory Cisneros catheter in place with clear yellow urine 04/14/2022 Patient with no significant tachypnea at rest however is still on 67 oxygen liter per minute requirement which is similar to yesterday. He still has bilateral patellar like edema about 2+, there is mild evidence of cellulitis on his been treated with antibiotics with improvement. He confirms he is on 3 L oxygen at home. No other new complaints, his creatinine went up to 1.4 but carbon dioxide improved down to 44. He still have mild leukocytosis while on prednisone 40 mg. Slightly tachycardic. Objective - Vital Signs Vital signs: Vital Signs Temp 97.8 F 04/14/22 12:05 Pulse 76 04/14/22 12:05 Resp 20 04/14/22 12:05 BP 119/76 04/14/22 12:05 Pulse Ox 95 04/14/22 12:05 FiO2 40 04/14/22 04:04 Intake & Output 04/13/22 04/14/22 04/14/22 18:59 06:59 18:59 Intake Total 682 600 375 Output Total 2095 1450 1250 Balance -1413 -850 -875 Weight 148.8 kg Intake: IV 182 100 15 0.9% Sodium Chloride 70 CVP Pressure Bag 12 Cefepime 2 gm In Sodium 100 Chloride 0.9% 100 ml @ 25 mls/hr IVPB Q8HR [facility] Rx# :[id number] Invasive Line 2 10 Invasive Line 4 5 ceFAZolin 2 gm In Sodium 100 Chloride 0.9% 50 ml @ 100 mls/hr IVPB Q8HR [facility] Rx# :[id number] Oral 500 500 360 Output: Urine 2095 1450 1250 Other: Voiding Method Indwelling Catheter Indwelling Catheter Indwelling Catheter # Bowel Movements 1 ABP, PAP, CO, CI - Last Documented Arterial Blood Pressure 137/84 - Exam GENERAL: The patient is alert and oriented x3, not in any acute distress. Well developed, well nourished. HEENT: Pupils are round and equally reacting to light. EOMI. No scleral icterus. No conjunctival pallor. Normocephalic, atraumatic. No pharyngeal erythema. No thyromegaly. CARDIOVASCULAR: S1 and S2 present. No murmurs, rubs, or gallops. PULMONARY: Chest is clear to auscultation, no wheezing . Mild basal crepitation ABDOMEN: Soft, nontender, nondistended, normoactive bowel sounds. No palpable organomegaly. MUSCULOSKELETAL: No joint swelling or deformity. EXTREMITIES: No cyanosis, clubbing, or pedal edema. NEUROLOGICAL: Gross neurological examination did not reveal any focal deficits. SKIN: No rashes. no petechiae. - Labs CBC & Chem 7: 04/14/22 10:15 04/14/22 10:15 Labs: Abnormal Lab Results - Last 24 Hours (Table) 04/13/22 04/13/22 04/14/22 Range/Units 17:22 20:31 06:08 WBC (3.8-10.6) k/uL Hct (39.0-53.0) % Sodium (137-145) mmol/L Chloride (98-107) mmol/L Carbon Dioxide (22-30) mmol/L BUN (9-20) mg/dL Creatinine (0.66-1.25) mg/dL Glucose (74-99) mg/dL POC Glucose (mg/dL) 207 H 210 H 123 H (70-110) mg/dL Calcium (8.4-10.2) mg/dL 04/14/22 04/14/22 04/14/22 Range/Units 10:15 10:15 11:43 WBC 13.3 H (3.8-10.6) k/uL Hct 53.3 H (39.0-53.0) % Sodium 136 L (137-145) mmol/L Chloride 82 L (98-107) mmol/L Carbon Dioxide 44 H* (22-30) mmol/L BUN 64 H (9-20) mg/dL Creatinine 1.40 H (0.66-1.25) mg/dL Glucose 145 H (74-99) mg/dL POC Glucose (mg/dL) 141 H (70-110) mg/dL Calcium 8.2 L (8.4-10.2) mg/dL Microbiology - Last 24 Hours (Table) 04/10/22 15:49 Blood Culture Gram Stain - Final Blood Blood Culture - Final Staphylococcus epidermidis 04/11/22 18:38 Blood Culture Gram Stain - Preliminary Blood Blood Culture - Preliminary Coagulase Negative Staph 04/10/22 15:45 Gram Stain - Final Sputum Sputum Culture - Final Assessment and Plan Assessment: Acute hypoxic respiratory failure secondary to acute diastolic CHF exacerbation and acute COPD exacerbation, extubated on 04/12/22, currently on 6L hi flow cannula. Atrial fibrillation rate with rapid ventricular rate on oral cardizem. And Eliquis Left lower extremity ulceration and possible cellulitis with culture showing presumptive MRSA/gram neg bacili Gram Positive bacteremia Hypertension Obstructive sleep apnea History of COPD, oxygen dependent History atrial flutter previous ablation Chronic lower extremity edema Former Smoker GI Prophylaxis Protonix DVT Prophylaxis Eliquis Full Code Plan: Patient is monitored closely in ICU, has been extubated on 04/12/22 Continues on empiric antibiotics of cefepime Lasix gtt has been transitioned to IV push lasix continue with oral Lasix 40 mg twice daily Continue with Cardizem and metoprolol tartrate controlled Continues on oral prednisone, bronchodilators Blood cultures reviewed Monitor blood glucose DVT prophylaxis: Eliquis GI prophylaxis Pepcid Prognosis is guarded
[2022-04-14 17:22] LABS: Glucose,Whole Blood 185 mg/dL (70-110)
[2022-04-14 19:55] LABS: Glucose,Whole Blood 114 mg/dL (70-110)
[2022-04-14] MEDS: DILTIAZEM CD 120 MG CAP.ER.24H PO SCH (21:03)
[2022-04-14] MEDS: INSULIN DETEMIR (LEVEMIR) 100 UNIT/ML SYR SQ SCH (21:03)
--- NOTE | 2022-04-14 21:47 | P.PN ---
Subjective Progress Note Date: 04/14/22 Principal diagnosis: Positive cultures left leg and possible cellulitis Patient is a 56-year-old male with a past medical history significant for COPD presenting to the hospital 4 days ago for evaluation of difficulty in breathing patient symptom has been going on for a couple of weeks before presentation to the hospital and the patient did have difficulty maintaining his O2 sats patient is not getting intubated also noticed to have swelling to the lower simply with some erythema and superficial ulceration culture was showing presented to MRSA and gram-negative the patient was extubated afternoon of 04/11/2022 on today's evaluation that is 04/14/2022, the patient is afebrile, the patient is breathing comfortably on nasal cannula oxygen. The patient denies having any chest pain , occasional dry cough , no abdominal pain or diarrhea, denies pain to lower extremity Objective - Vital Signs Vital signs: Vital Signs Temp 97.8 F 04/14/22 12:05 Pulse 76 04/14/22 12:05 Resp 20 04/14/22 12:05 BP 119/76 04/14/22 12:05 Pulse Ox 95 04/14/22 12:05 FiO2 40 04/14/22 04:04 Intake & Output 04/13/22 04/14/22 04/14/22 18:59 06:59 18:59 Intake Total 682 600 975 Output Total 2095 1450 1250 Balance -2497 -603 -154 Weight 148.8 kg Intake: IV 182 100 15 0.9% Sodium Chloride 70 CVP Pressure Bag 12 Cefepime 2 gm In Sodium 100 Chloride 0.9% 100 ml @ 25 mls/hr IVPB Q8HR [facility] Rx# :[id number] Invasive Line 2 10 Invasive Line 4 5 ceFAZolin 2 gm In Sodium 100 Chloride 0.9% 50 ml @ 100 mls/hr IVPB Q8HR [facility] Rx# :[id number] Oral 500 500 960 Output: Urine 2095 1450 1250 Other: Voiding Method Indwelling Catheter Indwelling Catheter Indwelling Catheter # Bowel Movements 1 ABP, PAP, CO, CI - Last Documented Arterial Blood Pressure 137/84 - Exam GENERAL DESCRIPTION: Middle-age male up in the chair RESPIRATORY SYSTEM: Unlabored breathing , decreased breath sounds at bases HEART: S1 S2 regular rate and rhythm , ABDOMEN: Soft , no tenderness EXTREMITIES: Diffuse swelling to bilateral lower extremity minimal erythema - Labs CBC & Chem 7: 04/14/22 10:15 04/14/22 10:15 Labs: Abnormal Lab Results - Last 24 Hours (Table) 04/13/22 04/13/22 04/14/22 Range/Units 17:22 20:31 06:08 WBC (3.8-10.6) k/uL Hct (39.0-53.0) % Plt Count (150-450) k/uL Neutrophils # (1.3-7.7) k/uL Lymphocytes # (1.0-4.8) k/uL Monocytes # (0-1.0) k/uL Sodium (137-145) mmol/L Chloride (98-107) mmol/L Carbon Dioxide (22-30) mmol/L BUN (9-20) mg/dL Creatinine (0.66-1.25) mg/dL Glucose (74-99) mg/dL POC Glucose (mg/dL) 207 H 210 H 123 H (70-110) mg/dL Calcium (8.4-10.2) mg/dL 04/14/22 04/14/22 04/14/22 Range/Units 10:15 10:15 11:43 WBC 13.3 H (3.8-10.6) k/uL Hct 53.3 H (39.0-53.0) % Plt Count 91 L (150-450) k/uL Neutrophils # 11.2 H (1.3-7.7) k/uL Lymphocytes # 0.8 L (1.0-4.8) k/uL Monocytes # 1.1 H (0-1.0) k/uL Sodium 136 L (137-145) mmol/L Chloride 82 L (98-107) mmol/L Carbon Dioxide 44 H* (22-30) mmol/L BUN 64 H (9-20) mg/dL Creatinine 1.40 H (0.66-1.25) mg/dL Glucose 145 H (74-99) mg/dL POC Glucose (mg/dL) 141 H (70-110) mg/dL Calcium 8.2 L (8.4-10.2) mg/dL Microbiology - Last 24 Hours (Table) 04/11/22 18:38 Blood Culture Gram Stain - Final Blood Blood Culture - Final Staphylococcus epidermidis 04/10/22 15:49 Blood Culture Gram Stain - Final Blood Blood Culture - Final Staphylococcus epidermidis 04/10/22 15:45 Gram Stain - Final Sputum Sputum Culture - Final Assessment and Plan (1) Cellulitis Current Visit: Yes Status: Acute Code(s): L03.90 - CELLULITIS, UNSPECIFIED SNOMED Code(s): 777331727 Plan: 1patient presented to hospital with acute respiratory failure currently on the ventilator likely multifactorial in this patient with underlying COPD and not concerning for increased swelling to bilateral lower extremity and some superficial ulceration and redness concerning for possible cellulitis with local culture not showing gram-negative and present to MRSA. 2positive blood culture with gram-positive cocci finalized for staph epi likely contamination, vancomycin has been discontinued 3-patient did have improvement in bilateral lower extremity swelling and redness currently covered with the cefepime, repeat CRP and Procalcitonin Time with Patient: Less than 30
[2022-04-15] MEDS: CEFEPIME 2 GM in SODIUM CHLORIDE 0.9% 100 ML IVPB SCH ×2 (00:30→07:53)
[2022-04-15 05:56] LABS: Glucose,Whole Blood 86 mg/dL (70-110)
[2022-04-15] MEDS: INSULIN ASPART (NovoLOG) 100 UNIT/ML VIAL SQ SCH ×8 (06:32→21:06)
[2022-04-15 07:37] LABS: C Reactive Protein 0.7 mg/dL (<1.0); Calcium 8.6 mg/dL (8.4-10.2); Potassium 3.5 mmol/L (3.5-5.1)
[2022-04-15] MEDS: FUROSEMIDE 40 MG TAB PO SCH ×2 (07:55→17:03)
[2022-04-15] MEDS: metOLazone 5 MG TAB PO SCH (07:55)
[2022-04-15] MEDS: FAMOTIDINE 20 MG TAB PO SCH ×2 (07:55→21:07)
[2022-04-15] MEDS: NITROGLYCERIN OINT 1 INCH/GM PACKET TOPICAL SCH ×4 (07:55→21:06)
[2022-04-15] MEDS: METOPROLOL TARTRATE 25 MG TAB PO SCH ×2 (07:55→21:07)
[2022-04-15] MEDS: APIXABAN 5 MG TAB PO SCH ×2 (07:55→21:06)
[2022-04-15] MEDS: predniSONE 20 MG TAB PO SCH (07:55)
[2022-04-15] MEDS: DILTIAZEM CD 180 MG CAP.ER.24H PO SCH (07:55)
[2022-04-15] MEDS: HYDROmorphone 1 MG/ML 1 ML SYRINGE IVP PRN ×3 (08:00→21:06)
--- NOTE | 2022-04-15 10:42 | P.PN ---
Subjective Progress Note Date: 04/15/22 Principal diagnosis: Positive cultures left leg and possible cellulitis Patient is a 56-year-old male with a past medical history significant for COPD presenting to the hospital 4 days ago for evaluation of difficulty in breathing patient symptom has been going on for a couple of weeks before presentation to the hospital and the patient did have difficulty maintaining his O2 sats patient is not getting intubated also noticed to have swelling to the lower simply with some erythema and superficial ulceration culture was showing presented to MRSA and gram-negative the patient was extubated afternoon of 04/11/2022 on today's evaluation that is 04/15/2022, the patient continues to be afebrile, the patient is breathing comfortably on 4 L nasal cannula oxygen. The patient denies having any chest pain the patient cough is decreased density mostly dry in nature , no abdominal pain or diarrhea, the patient denies pain to lower extremity Objective - Vital Signs Vital signs: Vital Signs Temp 98.1 F 04/15/22 08:05 Pulse 116 H 04/15/22 08:05 Resp 15 04/15/22 04:00 BP 130/75 04/15/22 08:05 Pulse Ox 92 L 04/15/22 08:05 FiO2 40 04/15/22 04:22 Intake & Output 04/14/22 04/15/22 04/15/22 18:59 06:59 18:59 Intake Total 1090 822 210 Output Total 1924 2049 Balance -835 -1228 210 Weight 119.5 kg Intake: IV 30 10 Invasive Line 2 20 Invasive Line 4 10 Invasive Line 7 10 Intake, IV Titration 100 200 Amount Cefepime 2 gm In Sodium 100 200 Chloride 0.9% 100 ml @ 25 mls/hr IVPB Q8HR [facility] Rx# :[id number] Oral 960 822 Output: Urine 1924 2049 Other: Voiding Method Indwelling Catheter Indwelling Catheter Indwelling Catheter ABP, PAP, CO, CI - Last Documented Arterial Blood Pressure 137/84 - Exam GENERAL DESCRIPTION: Middle-age male up in the chair RESPIRATORY SYSTEM: Unlabored breathing , decreased breath sounds at bases HEART: S1 S2 regular rate and rhythm , ABDOMEN: Soft , no tenderness EXTREMITIES: Diffuse swelling to bilateral lower extremity minimal erythema - Labs CBC & Chem 7: 04/14/22 10:15 04/15/22 07:02 Labs: Abnormal Lab Results - Last 24 Hours (Table) 04/14/22 04/14/22 04/14/22 Range/Units 10: 10: 11:43 WBC 13.3 H (3.8-10.6) k/uL Hct 53.3 H (39.0-53.0) % Plt Count 91 L (150-450) k/uL Neutrophils # 11.2 H (1.3-7.7) k/uL Lymphocytes # 0.8 L (1.0-4.8) k/uL Monocytes # 1.1 H (0-1.0) k/uL Sodium 136 L (137-145) mmol/L Chloride 82 L (98-107) mmol/L Carbon Dioxide 44 H* (22-30) mmol/L BUN 64 H (9-20) mg/dL Creatinine 1.40 H (0.66-1.25) mg/dL Glucose 145 H (74-99) mg/dL POC Glucose (mg/dL) 141 H (70-110) mg/dL Calcium 8.2 L (8.4-10.2) mg/dL 04/14/22 04/14/22 04/15/22 Range/Units 17:01 19:53 07:02 WBC (3.8-10.6) k/uL Hct (39.0-53.0) % Plt Count (150-450) k/uL Neutrophils # (1.3-7.7) k/uL Lymphocytes # (1.0-4.8) k/uL Monocytes # (0-1.0) k/uL Sodium 136 L (137-145) mmol/L Chloride 84 L (98-107) mmol/L Carbon Dioxide 44 H* (22-30) mmol/L BUN 62 H (9-20) mg/dL Creatinine 1.29 H (0.66-1.25) mg/dL Glucose (74-99) mg/dL POC Glucose (mg/dL) 185 H 114 H (70-110) mg/dL Calcium (8.4-10.2) mg/dL Microbiology - Last 24 Hours (Table) 04/11/22 18:38 Blood Culture Gram Stain - Final Blood Blood Culture - Final Staphylococcus epidermidis Assessment and Plan (1) Cellulitis Current Visit: Yes Status: Acute Code(s): L03.90 - CELLULITIS, UNSPECIFIED SNOMED Code(s): 142391259 Plan: 1patient presented to hospital with acute respiratory failure currently on the ventilator likely multifactorial in this patient with underlying COPD and not concerning for increased swelling to bilateral lower extremity and some superficial ulceration and redness concerning for possible cellulitis with local culture not showing gram-negative and present to MRSA. 2positive blood culture with gram-positive cocci finalized for staph epi likely contamination, vancomycin has been discontinued 3-patient did have improvement in bilateral lower extremity swelling and redness currently and the patient inflammatory markers have normalized we will go ahead and discontinue cefepime and monitor her the patient closely off antibiotic Time with Patient: Less than 30
[2022-04-15 11:28] LABS: Glucose,Whole Blood 210 mg/dL (70-110)
--- NOTE | 2022-04-15 11:52 | P.PN ---
Subjective Progress Note Date: 04/15/22 On today's evaluation of 04/09/2022, the patient is being seen for a follow-up. He is a 56-year-old gentleman with known history of diastolic heart failure, COPD, chronic hypoxic and hypercapnic respiratory failure and the patient also has obstructive sleep apnea maintained on a BiPAP at a potential 20/16 cm of water along with oxygen at 2 L/m nasal cannula. The patient also has history of liquids. At this point in time, the patient is intubated on a mechanical ventilator for respiratory failure. The patient remains on propofol which is running at 40 mcg/kg/m. The patient is on a mechanical ventilator assist control mode with a rate of 26 with a tidal volume of 450 and FiO2 of 50% with a PEEP of 5. The chest x-ray from today was noted and the patient has adequate positioning of the orotracheal and orogastric tube. The chest x-ray from today is showing that she was back up pulmonary infiltrates and obvious back or pleural effusions. Based on a previous chest x-ray that was on today's ago, the chest x-ray findings are essentially unchanged. The patient had an echocardiogram during this current admission that was done on 04/06/2022 and echo showed a preserved LV function with an ejection fraction of 50-55%. There was no structural or valvular abnormalities noted. The blood work from today shows a white cell count of 9.0 with hemoglobin of 14.1 and a platelet count of 166. Sodium is 137, again is at 74 with a creatinine of 1.6 and a potassium level of 4.6 with a serum bicarb of 44. The patient's blood gas from today shows a pH of 7.38 with episodes of 59 and pO2 of 62. The patient is afebrile. Current cardiac rhythm is a chest fibrillation. The patient is slightly t achycardic. The patient's is on" initial liquids 5 mg by mouth twice a day. He remains on IV cefepime as a broad-spectrum of the cover antibiotic coverage in combination with vancomycin. He is also on no pressors for now. He is receiving enteral feeding for social support and is currently on vital high- protein at the rate of 40 mL an hour. He is on IV Lasix. The overall fluid balance over the past 24 hours has been +1.2 L. 04/10/2022, I'm seeing the patient for a follow-up. This morning, the patient remains on propofol at 45 mcg/kg/m. His adequately sedated and is calm and comfortable. The triple-lumen catheter was inserted yesterday into his left IJ. The chest x-ray from today showing stable pulmonary vascular congestion and moderate to large bilateral pleural effusions. Note that I started the patient on aggressive diuresis yesterday. He is currently on Lasix drip at 10 mg an hour and is also on Zaroxolyn. Overall fluid balance has been -8.7 L over the past 24 hours and the patient is producing excellent amount of urine output. He remains on a mechanical ventilator on assist control mode with a rate of 26, tidal volume of 450 mL, FiO2 of 50% with a PEEP of 5. The blood gas showed pH of 7.45 with a pCO2 of 62 and pO2 of 62. No major improvement in his oxygenati on as such. This is despite his ongoing diuresis. The patient clinically continues to have extensive multilevel edema both in the upper and lower extremities and the patient has significant scrotal edema. The BMs at 78 with a creatinine of 1.59 and the sodium level is at 139. The white cell count of 9.7 with a hemoglobin of 15 and platelet count of 154. The patient continues to receive vital high-protein at the rate of 58 mL an hour. Antibiotic coverage is with IV cefepime for now. Clinically, the patient is stable. He was given a sedation holiday yesterday. He arouses without adding any major difficulties and he follows simple commands. He is afebrile for now. He does not have COPD, chronic hypoxic respiratory failure, obstructive sleep apnea and diastolic heart failure. 04/11/2022, the patient remains sedated this morning on propofol running at 50 mcg/kg/m. I continue to aggressively diurese this patient. Urine output for yesterday was 11 L and over the past 24 hours was 8.7 L. Net fluid balance remains negative. The edema is improving in his legs and in his arms and his scrotum. His chest x-ray however is still showing moderate-sized bilateral pleural effusion. He remains on a mechanical ventilator on assist control mode with a rate of 26 with a tidal volume of 450 and FiO2 of 50% with a PEEP of 5. Morning blood gases showed day pH of 7.47 with a pCO2 of 67 and pO2 of 65. The patient's sodium levels of 138, potassium is 3.9, BUN is at 87 with a creatinine of 1.7 and his CVP is 10. The patient is afebrile. The patient is hemodynamically stable. He remains in atrial fibrillation and the latest slightly tachycardic this morning. He remains on anticoagulation with eloquent 5 mg by mouth twice a day. Enteral feeding is in the form of vital high-protein at 58 cc/ hour. He is covered with IV antibiotics on an empiric basis and the patient is currently on IV cefepime. The patient remains on Lasix drip 5 mg an hour. He is also Zaroxolyn 5 mg by mouth twice a day. He remains on bronchodilators and steroids. 04/12/2022, the patient is extubated and is off propofol and is off the mechanical ventilator. Is awake and alert and is communicating and is on oxygen at 6 L and his current pulse ox is 95%. The patient's is still being diuresed w ith IV Lasix. He is on Lasix drip 5 mg an hour and oral Zaroxolyn. He has been in significant amount of negative fluid balance and he continues to produce excellent urine output. The overall fluid balance over the past 24 hours has been in the order of(-5.5 L and overall fluid balance negativity has been roughly 20 L over the past 3 days since the Lasix was started. He continues to have some edema in his lower extremities and is scrotal edema has improved significantly. The chest x-ray also shows marked improvement in volume status and improvement in the bilateral pleural effusion and the right hemidiaphragm can be adequately visualized for now. In terms of his blood work, he developed some metabolic alkalosis with a bicarb level of 44 and his BUN is at 87 with a creatinine of 1.4. The white cycles of 15.8 with a hemoglobin of 16.6. Overnight, the patient was on a BiPAP at a pressure of 16/10 cm of water and FiO2 of 40%. His current cardiac rhythm is atrial fibrillation with some tachycardia. The patient remains on anticoagulation with eloquent milligrams by mouth twice a day. He has a triple-lumen catheter in his left IJ. He has COPD with chronic hypoxic/upper Respiratory failure and obstructive sleep apnea. 04/13/2022, the patient is on 6 L of O2 nasal cannula. His calm and comfortable. To continue the diuresis. Fluid balance has been another 2.4 L over the past 24 hours. The patient is otherwise doing well. His BUN is at 79 with a creatinine of 1.2. Serum bicarbs of 50 and the patient has a white cell count of 13.9 with a hemoglobin of 16.2. A repeat chest x-ray was done today and there is significant improvement. Minimal residual pleural effusion the lung bases bilaterally. Overall the volume status is improved considerably on this patient. He is tolerating diet. Mental status is adequate for now. No other significant events otherwise since yesterday. He remains on empiric antibiotic coverage. He was started on a prednisone burst taper. He'll be switched to oral Lasix today. Physical therapy is on the case. We also given 2 doses of Diamox regarding his significant metabolic alkalosis. 04/14/2022, the patient remains on 6 L of oxygen nasal cannula. Doing well. No specific complaints. Continues to diabetes and he remains in negative fluid balance. The fluid balance has been -2.2 L over the past 24 hours. The patient meanwhile has a white cell count of 13.3 hemoglobin 60.2. BUN is at 64 with a creatinine of 1.4 episode of numbness 136. He is currently on Lasix 40 mg by mouth twice a day and is also Zaroxolyn 5 mg by mouth daily. He is on a prednisone burst taper. Chest x-ray findings are stable. 04/15/2022, continues to produce excellent urine output and the patient is currently on 4 L O2 by nasal cannula. The patient is taking Zaroxolyn 5 mg by mouth daily the patient is taking Lasix 40 mg twice a day. He is sitting up in a chair. No cough. No sputum production. No chest masses or wheezing. He is also on a prednisone burst taper. He is also on anticoagulation. He got transferred out of the intensive care unit 48 hours ago. Tolerating his diet. Objective - Vital Signs Vital signs: Vital Signs Temp 98.1 F 04/15/22 08:05 Pulse 116 H 04/15/22 08:05 Resp 15 04/15/22 04:00 BP 130/75 04/15/22 08:05 Pulse Ox 92 L 04/15/22 08:05 FiO2 40 04/15/22 04:22 Intake & Output 04/14/22 04/15/22 04/15/22 18:59 06:59 18:59 Intake Total 1090 822 210 Output Total 1924 2049 Balance -835 -1228 210 Weight 119.5 kg Intake: IV 30 10 Invasive Line 2 20 Invasive Line 4 10 Invasive Line 7 10 Intake, IV Titration 100 200 Amount Cefepime 2 gm In Sodium 100 200 Chloride 0.9% 100 ml @ 25 mls/hr IVPB Q8HR [facility] Rx# :[id number] Oral 960 822 Output: Urine 1924 2049 Other: Voiding Method Indwelling Catheter Indwelling Catheter Indwelling Catheter ABP, PAP, CO, CI - Last Documented Arterial Blood Pressure 137/84 - Exam No acute distress, awake and alert and the patient is currently on 6 L O2 nasal cannula HEENT examination is grossly unremarkable. Neck supple. Full range of motion. No adenopathy thyromegaly or neck vein distention. Left subclavian triple-lumen catheter in place Cardiovascular examination reveals an irregular rhythm and rate. S1-S2 normal. No S3 or S4. No discernible murmur noted. Lungs reveal bilateral coarse rhonchi, and crackles. Breath sounds equal bilaterally. No wheezes. Abdomen soft, with bowel sounds. No masses or tenderness. the patient has a significant scrotal edema that has gotten significantly worse during this current admission. Extremities are intact. Small left leg wound noted. No cyanosis or clubbing. Mild to moderate edema appreciated. Skin is without rash or lesion. Neurologic examination , Neurologically, the patient is awake and alert and the patient does not have any focal neurological deficit. Cranial nerves are essentially intact. - Labs CBC & Chem 7: 04/14/22 10:15 04/15/22 07:02 Labs: Abnormal Lab Results - Last 24 Hours (Table) 04/14/22 04/14/22 04/14/22 Range/Units 10: 10: 11:43 Plt Count 91 L (150-450) k/uL Neutrophils # 11.2 H (1.3-7.7) k/uL Lymphocytes # 0.8 L (1.0-4.8) k/uL Monocytes # 1.1 H (0-1.0) k/uL Sodium 136 L (137-145) mmol/L Chloride 82 L (98-107) mmol/L Carbon Dioxide 44 H* (22-30) mmol/L BUN 64 H (9-20) mg/dL Creatinine 1.40 H (0.66-1.25) mg/dL Glucose 145 H (74-99) mg/dL POC Glucose (mg/dL) 141 H (70-110) mg/dL Calcium 8.2 L (8.4-10.2) mg/dL Procalcitonin (0.02-0.09) ng/mL 04/14/22 04/14/22 04/15/22 Range/Units 17:01 19:53 07:02 Plt Count (150-450) k/uL Neutrophils # (1.3-7.7) k/uL Lymphocytes # (1.0-4.8) k/uL Monocytes # (0-1.0) k/uL Sodium 136 L (137-145) mmol/L Chloride 84 L (98-107) mmol/L Carbon Dioxide 44 H* (22-30) mmol/L BUN 62 H (9-20) mg/dL Creatinine 1.29 H (0.66-1.25) mg/dL Glucose (74-99) mg/dL POC Glucose (mg/dL) 185 H 114 H (70-110) mg/dL Calcium (8.4-10.2) mg/dL Procalcitonin (0.02-0.09) ng/mL 04/15/22 04/15/22 Range/Units 07:02 11:22 Plt Count (150-450) k/uL Neutrophils # (1.3-7.7) k/uL Lymphocytes # (1.0-4.8) k/uL Monocytes # (0-1.0) k/uL Sodium (137-145) mmol/L Chloride (98-107) mmol/L Carbon Dioxide (22-30) mmol/L BUN (9-20) mg/dL Creatinine (0.66-1.25) mg/dL Glucose (74-99) mg/dL POC Glucose (mg/dL) 210 H (70-110) mg/dL Calcium (8.4-10.2) mg/dL Procalcitonin 0.10 H (0.02-0.09) ng/mL Microbiology - Last 24 Hours (Table) 04/11/22 18:38 Blood Culture Gram Stain - Final Blood Blood Culture - Final Staphylococcus epidermidis Assessment and Plan Plan: Acute hypoxemic respiratory failure secondary to acute diastolic congestive heart failure, and acute exacerbation of chronic obstructive pulmonary disease.clinically improved. Aggressively diuresed. Negative fluid balance more than 20 L. Pleural effusions since subsided. Clinically improved and the patient is currently extubated on 4 L O2 nasal cannula. Chest x-ray was also noted. Acute hypercapnic respiratory failure secondary to above. Metabolic alkalosis secondary to aggressive diuresis Bilateral pleural effusion, and further diuresis, improved Atrial fibrillation with a rapid ventricular response, currently on a Cardizem po, oral metoprolol , anticoagulated with Eliquis. Morbid obesity with a BMI of 50 kg/m2. Obstructive sleep apnea, maintained on BiPAP 20/16 along with 2 L of oxygen. Chronic obstructive pulmonary disease, oxygen dependent, FEV1 value 22% of predicted. Small left leg wound, with gram-negative bacilli/presumptive staph. Acute on chronic lower extremity edema secondary to right-sided heart failure/cor pulmonale. Former smoker. plan Continues to improve clinically, continue to diurese The patient continued to diabetes Wean down FiO2 currently on 4L Continue Lasix and Zaroxolyn 40 mg of Lasix twice a day and Zaroxolyn 5 mg once a day Serum bicarb is down to 44 from yesterday Monitor electrolytes Monitor fluid balance and wean down FiO2 BiPAP overnight Prednisone burst taper Patient is on empiric antibiotic coverage with IV cefepime The family was updated We'll continue the supportive care PTOT evaluation Incentive spirometer IV fluids to KVO Monitor electrolytes Clinically doing well. We'll sign off the case and the patient will likely get discharged the next 24 hours. Outpatient follow-up regarding his obstructive sleep apnea.
--- NOTE | 2022-04-15 12:43 | P.PN ---
Subjective Progress Note Date: 04/15/22 The patient is a 56-year-old male who presented to the hospital with worsening shortness of breath. He was initially admitted to [address] [place] [address] on BiPAP, and became hypoxic and was subsequently intubated. After intubation he developed A. fib with RVR. He was started on oral amiodarone and Cardizem drip, however the patient did not convert back to sinus rhythm. He was extubated on 04/11/2022. He was interviewed and examined sitting up in the recliner chair. He states his breathing is getting better every day. He states he is able to ambulate from the bed to the bathroom without issue. The nursing staff states he is quite confused and he repeatedly takes off of his oxygen where he will desaturate. GENERAL: Well-appearing, obese male. In no acute distress. NECK: Supple without JVD or thyromegaly. LUNGS: Breath sounds diminished to auscultation bilaterally. Respiration equal and unlabored. No wheezes, rales, or rhonchi. HEART: Irregular rate and rhythm without murmurs, rubs or gallops. S1 and S2 heard. EXTREMITIES: Normal range of motion, no edema. No clubbing or cyanosis. Peripheral pulses intact and strong. VITALS: Blood pressure 130/75, heart rate 116, temp 98.1F, SpO2 92% on 4 L nasal cannula TELEMETRY: Atrial fibrillation with heart rates in the 1 teens to 120s LABS: Sodium 136, potassium 3.5, BUN 62, creatinine 1.29 IMPRESSION: Atrial fibrillation, rate controlled, on anticoagulation Congestive heart failure, preserved ejection fraction COPD exacerbation, currently ventilated Elevated troponins, flat trend Morbid obesity, BMI 50 Venous stasis ulcer, positive for gram-negative bacilli History of atrial flutter, ablation 07/27/2021 PLAN: Continue rate control strategy Aggressive pulmonary hygiene Further recommendations based on clinical course I am dictating on behalf of Dr Carmine Dickerson's history/physical and assessment/plan. Objective - Vital Signs Vital signs: Vital Signs Temp 98.1 F 04/15/22 08:05 Pulse 116 H 04/15/22 08:05 Resp 15 04/15/22 04:00 BP 130/75 04/15/22 08:05 Pulse Ox 92 L 04/15/22 08:05 FiO2 40 10/16/22 04:22 Intake & Output 04/14/22 04/15/22 04/15/22 18:59 06:59 18:59 Intake Total 1090 822 810 Output Total 1924 2049 Balance -835 -1228 810 Weight 119.5 kg Intake: IV 30 10 Invasive Line 2 20 Invasive Line 4 10 Invasive Line 7 10 Intake, IV Titration 100 200 Amount Cefepime 2 gm In Sodium 100 200 Chloride 0.9% 100 ml @ 25 mls/hr IVPB Q8HR [facility] Rx# :[id number] Oral 960 822 600 Output: Urine 1924 2049 Other: Voiding Method Indwelling Catheter Indwelling Catheter Indwelling Catheter ABP, PAP, CO, CI - Last Documented Arterial Blood Pressure 137/84 - Labs CBC & Chem 7: 04/14/22 10:04/15/22 07:02 Labs: Abnormal Lab Results - Last 24 Hours (Table) 04/14/22 04/14/22 04/14/22 Range/Units 10: 17:01 19:53 Plt Count 91 L (150-450) k/uL Neutrophils # 11.2 H (1.3-7.7) k/uL Lymphocytes # 0.8 L (1.0-4.8) k/uL Monocytes # 1.1 H (0-1.0) k/uL Sodium (137-145) mmol/L Chloride (98-107) mmol/L Carbon Dioxide (22-30) mmol/L BUN (9-20) mg/dL Creatinine (0.66-1.25) mg/dL POC Glucose (mg/dL) 185 H 114 H (70-110) mg/dL Procalcitonin (0.02-0.09) ng/mL 04/15/22 04/15/22 04/15/22 Range/Units 07:02 07:02 11:22 Plt Count (150-450) k/uL Neutrophils # (1.3-7.7) k/uL Lymphocytes # (1.0-4.8) k/uL Monocytes # (0-1.0) k/uL Sodium 136 L (137-145) mmol/L Chloride 84 L (98-107) mmol/L Carbon Dioxide 44 H* (22-30) mmol/L BUN 62 H (9-20) mg/dL Creatinine 1.29 H (0.66-1.25) mg/dL POC Glucose (mg/dL) 210 H (70-110) mg/dL Procalcitonin 0.10 H (0.02-0.09) ng/mL Microbiology - Last 24 Hours (Table) 04/11/22 18:38 Blood Culture Gram Stain - Final Blood Blood Culture - Final Staphylococcus epidermidis
--- NOTE | 2022-04-15 16:22 | P.PN ---
Subjective This is a 56-year-old male who is being monitored in the intensive care unit secondary to acute hypoxic respiratory failure as well as acute CHF exa cerbation. Patient found to be in atrial fibrillation with rapid ventricular rate post intubation. The patient is currently intubated with FiO2 50%, current oxygen saturations 89%. Cardizem gtt weaned yesterday, he is on oral cardizem. Chest x-ray this morning showing pulmonary vascular congestion and bilateral pleural effusions correlate for congestive heart failure. Sodium stable at 137, creatinine is trending down at 1.68, peaked yesterday at 1.74. Infectious disease has been consulted for wound cultures positive for presumptive MRSA and gram negative bacilli to the left leg and is currently maintained on IV cefepime and IV vancomycin pending finalized cultures. He continues on IV Lasix every 12, IV steroids 60 every 6 hours. 04/10/2022 Patient continues to be monitored in intensive care unit, on mechanical ventilator with FiO2 of 50%. Remains tachycardic in the 110-120s. He also had temperature of 100 this morning. Chest xray today showing congestive heart failure with likely associated effusions. Pneumonia not excluded. Patient started on lasix gtt yesterday afternoon, he has total of 3.8 L off in the last 24 hours, He is down 5 kg since yesterday, overall his weight is up since admission. Creatinine has improved today 1.59. Cultures are being repeated with concern of fever. He is being followed closely by pulmonary, cardiology, infectious disease. 04/11/2022 Patient is monitored closely in intensive care unit, he is currently intubated on mechanical ventilator with FiO2 of 50%. He has been maintained on lasix gtt currently at 5 with urine output of 8.7 L in the last 24 hours. He continues to be sedated with propofol. Wound culture has finalized to gram negative bacilli/MRSA/enterococcus and patient is being followed by infectious disease on IV cefepime. Blood cultures were taken yesterday and are showing gram positive cocci in clusters, IV vancomycin has been started today, and repeat blood cultures taken. Follow up chest xray today showing pulmonary vascular congestion with moderate effusions/atelectasis vs. consolidation. He is receiving enteral tube feedings with vital AF and blood sugars have been elevated in the 180s to 200s. For this novolog was increased to 2 units with scale every 6 hours and also levemir HS has been added for better glycemic control. Procalcitonin follow up 0.09. Creatinine is slightly increased today at 1.71. Patient remains in atrial fibrillation with elevated heart rate in the 130s, and continues on oral cardizem. T-max over night 100.1, and blood pressure 120/70s. Patient is being followed closely by cardiology, pulmonary helper maintenance cleaning, and infectious disease services. 04/12/2022 Patient is evaluated in intensive care unit sitting up in chair. Patient was extubated yesterday around 1330. Currently he is on oxygen support with 6L nasal cannula saturation 93%. He denies chest pain, no shortness of breath. He is tolerating some liquid diet. He continues with negative fluid balance about -3.7 L in the last 24 hours and lasix gtt has been discontinued. IV lasix 40 mg every 12 hours has been started. Repeat chest xray from today showing persistent retrocardiac atelectasis and consolidation. Blood culture showing staph epi possibly a contaminent, repeat is pending. Continues on IV cefepime managed by infectious disease. Patient continues in atrial fibrillation with heart rate in the 140s, cardiology has increased oral cardizem and started patient on metoprolol today. Labs reviewed today showing white count 13.8, BUN 87, creatinine 1.46, blood glucose in the 180s. 04/13/2022 Patient lying in bed still complaining of from dyspnea with little cough and phlegm but no chest pain he still saturating 6 L per minute. remains on cefepime and prednisone 40 mg for his COPD and positive blood culture with staph epidermidis and coagulase-negative staph. While his wound culture is growing MRSA, pseudomonas, entero-cocci, ID team on the case. Also he is on Eliquis 5 mg. Troponin is mildly elevated but patient with no chest pain. Cardiology team on the case Also echocardiogram showed ejection fraction of 50-55% Chest x-ray showing mild CHF with right basal infiltrate. On examination he has decreased breath sounds in bilateral patellar ligament edema 2+ Patient states he is on 3 L of oxygen at home for his COPD and his plasterer spot is Dr. Gregory Cisneros catheter in place with clear yellow urine 04/14/2022 Patient with no significant tachypnea at rest however is still on 67 oxygen liter per minute requirement which is similar to yesterday. He still has bilateral patellar like edema about 2+, there is mild evidence of cellulitis on his been treated with antibiotics with improvement. He confirms he is on 3 L oxygen at home. No other new complaints, his creatinine went up to 1.4 but carbon dioxide improved down to 44. He still have mild leukocytosis while on prednisone 40 mg. Slightly tachycardic. 04/15/2022 Patient is clinically doing well, his dyspnea improving. No chest pain. He is at 4 L/m of oxygen. At baseline he confirms he is a 3 L/m. Pulmonary team signed off. Box Closing Machine Operator team have no further recommendation. Per ID team discontinue IV. Cefepime and keep monitoring. He require subacute rehab. pit worker power shovel consulted Possible discharge in 24-48 hours Objective - Vital Signs Vital signs: Vital Signs Temp 97.5 F L 04/15/22 12:25 Pulse 94 04/15/22 12:25 Resp 20 04/15/22 12:25 BP 128/74 04/15/22 12:25 Pulse Ox 94 L 04/15/22 12:25 FiO2 40 04/15/22 04:22 Intake & Output 04/14/22 04/15/22 04/15/22 18:59 06:59 18:59 Intake Total 0098 641 7059 Output Total 1924 2049 1899 Balance -938 -0516 -490 Weight 119.5 kg Intake: IV 30 10 Invasive Line 2 20 Invasive Line 4 10 Invasive Line 7 10 Intake, IV Titration 100 200 Amount Cefepime 2 gm In Sodium 100 200 Chloride 0.9% 100 ml @ 25 mls/hr IVPB Q8HR [facility] Rx# :[id number] Oral 646 217 4768 Output: Urine 1924 2049 1899 Other: Voiding Method Indwelling Catheter Indwelling Catheter Indwelling Catheter ABP, PAP, CO, CI - Last Documented Arterial Blood Pressure 137/84 - Exam GENERAL: The patient is alert and oriented x3, not in any acute distress. Well developed, well nourished. HEENT: Pupils are round and equally reacting to light. EOMI. No scleral icterus. No conjunctival pallor. Normocephalic, atraumatic. No pharyngeal erythema. No thyromegaly. CARDIOVASCULAR: S1 and S2 present. No murmurs, rubs, or gallops. PULMONARY: Chest is clear to auscultation, no wheezing . Mild basal crepitation ABDOMEN: Soft, nontender, nondistended, normoactive bowel sounds. No palpable organomegaly. MUSCULOSKELETAL: No joint swelling or deformity. EXTREMITIES: No cyanosis, clubbing, or pedal edema. NEUROLOGICAL: Gross neurological examination did not reveal any focal deficits. SKIN: No rashes. no petechiae. - Labs CBC & Chem 7: 04/14/22 10:15 04/15/22 07:02 Labs: Abnormal Lab Results - Last 24 Hours (Table) 04/14/22 04/14/22 04/15/22 Range/Units 17:01 19:53 07:02 Sodium 136 L (137-145) mmol/L Chloride 84 L (98-107) mmol/L Carbon Dioxide 44 H* (22-30) mmol/L BUN 62 H (9-20) mg/dL Creatinine 1.29 H (0.66-1.25) mg/dL POC Glucose (mg/dL) 185 H 114 H (70-110) mg/dL Procalcitonin (0.02-0.09) ng/mL 04/15/22 04/15/22 Range/Units 07:02 11:22 Sodium (137-145) mmol/L Chloride (98-107) mmol/L Carbon Dioxide (22-30) mmol/L BUN (9-20) mg/dL Creatinine (0.66-1.25) mg/dL POC Glucose (mg/dL) 210 H (70-110) mg/dL Procalcitonin 0.10 H (0.02-0.09) ng/mL Microbiology - Last 24 Hours (Table) 04/11/22 18:38 Blood Culture Gram Stain - Final Blood Blood Culture - Final Staphylococcus epidermidis Assessment and Plan Assessment: Acute hypoxic respiratory failure secondary to acute diastolic CHF exacerbation and acute COPD exacerbation, extubated on 04/12/22, currently on 6L hi flow cannula. Atrial fibrillation rate with rapid ventricular rate on oral cardizem. And Eliquis Left lower extremity ulceration and possible cellulitis with culture showing presumptive MRSA/gram neg bacili Gram Positive bacteremia Hypertension Obstructive sleep apnea History of COPD, oxygen dependent History atrial flutter previous ablation Chronic lower extremity edema Former Smoker GI Prophylaxis Protonix DVT Prophylaxis Eliquis Full Code Plan: Patient is monitored closely in ICU, has been extubated on 04/12/22 Continues on empiric antibiotics of cefepime Lasix gtt has been transitioned to IV push lasix continue with oral Lasix 40 mg twice daily Continue with Cardizem and metoprolol tartrate controlled Continues on oral prednisone, bronchodilators Blood cultures reviewed Monitor blood glucose DVT prophylaxis: Eliquis GI prophylaxis Pepcid Prognosis is fair
[2022-04-15 16:53] LABS: Glucose,Whole Blood 273 mg/dL (70-110)
[2022-04-15 20:31] LABS: Glucose,Whole Blood 110 mg/dL (70-110)
[2022-04-15] MEDS: INSULIN DETEMIR (LEVEMIR) 100 UNIT/ML SYR SQ SCH (21:06)
[2022-04-15] MEDS: DILTIAZEM CD 120 MG CAP.ER.24H PO SCH (21:06)
[2022-04-16 06:08] LABS: Glucose,Whole Blood 194 mg/dL (70-110)
[2022-04-16] MEDS: INSULIN ASPART (NovoLOG) 100 UNIT/ML VIAL SQ SCH ×8 (06:29→20:46)
[2022-04-16] MEDS: DILTIAZEM CD 180 MG CAP.ER.24H PO SCH (08:21)
[2022-04-16] MEDS: metOLazone 5 MG TAB PO SCH (08:21)
[2022-04-16] MEDS: NITROGLYCERIN OINT 1 INCH/GM PACKET TOPICAL SCH (08:22)
[2022-04-16] MEDS: predniSONE 20 MG TAB PO SCH (08:22)
[2022-04-16] MEDS: FUROSEMIDE 40 MG TAB PO SCH ×2 (08:22→17:36)
[2022-04-16] MEDS: HYDROmorphone 1 MG/ML 1 ML SYRINGE IVP PRN ×3 (08:22→23:15)
[2022-04-16] MEDS: FAMOTIDINE 20 MG TAB PO SCH ×2 (08:22→20:46)
[2022-04-16] MEDS: METOPROLOL TARTRATE 25 MG TAB PO SCH (08:22)
[2022-04-16] MEDS: APIXABAN 5 MG TAB PO SCH ×2 (08:22→20:46)
[2022-04-16] MEDS ORDERED: METOPROLOL TARTRATE 25 MG TAB PO STA (09:31)
--- NOTE | 2022-04-16 09:43 | P.PN ---
Subjective Progress Note Date: 04/16/22 HISTORY OF PRESENT ILLNESS: This is a 57 year old male who follows with a wrapper hands sprayer out of [facility]. Patient is admitted to the hospital secondary to COPD, respiratory failure, CHF, and afib with RVR. Patient examined this morning. He is sitting up in the chair. Denies chest pain or pressure. Denies SOB. Telemetry reveals atrial fibrillation with heart rate around 110. PHYSICAL EXAM: VITAL SIGNS: Reviewed. GENERAL: Well-developed in no acute distress. NECK: Supple. No JVD or thyromegaly LUNGS: Respirations even and unlabored. Lungs essentially clear to auscultation bilaterally. HEART: Irregular rate and rhythm. S1 and S2 heard. EXTREMITIES: Normal range of motion. No clubbing or cyanosis. Peripheral pulses intact. No lower extremity edema ASSESSMENT: Persistent atrial fibrillation with RVR Acute on chronic heart failure with preserved ejection fraction, currently euvolemic Acute hypoxic respiratory failure requiring mechanical ventilation, since extubated Acute COPD exacerbation Elevated troponins, not suggestive of acute coronary syndrome History of atrial flutter with ablation in July 2021 Venous stasis ulcers, positive for gram-negative bacilli PLAN: Continue current cardiac medications Increase metoprolol to 50 mg twice a day for optimal heart rate control Patient is currently stable for discharge to [facility] today from a cardiac standpoint Patient to follow up outpatient with his primary wrapper hands sprayer Nurse practitioner note has been reviewed by physician. Signing provider agrees with the documented findings, assessment, and plan of care. Objective - Vital Signs Vital signs: Vital Signs Temp 98.2 F 04/16/22 08:15 Pulse 69 04/16/22 08:15 Resp 18 04/16/22 08:15 BP 142/75 04/16/22 08:15 Pulse Ox 98 04/16/22 08:15 FiO2 40 04/16/22 04:00 Intake & Output 04/15/22 04/16/22 04/16/22 18:59 06:59 18:59 Intake Total 2030 560 20 Output Total 1900 2200 Balance 130 -1640 20 Intake: IV 30 20 20 Invasive Line 7 20 Invasive Line 8 10 10 Invasive Line 9 10 20 Intake, IV Titration 200 Amount Cefepime 2 gm In Sodium 200 Chloride 0.9% 100 ml @ 25 mls/hr IVPB Q8HR [facility] Rx# :[id number] Oral 1800 540 Output: Urine 1900 2200 Uretheral (Cisneros) 1100 Other: Voiding Method Indwelling Catheter Indwelling Catheter ABP, PAP, CO, CI - Last Documented Arterial Blood Pressure 137/84 - Labs CBC & Chem 7: 04/14/22 10:15 04/15/22 07:02 Labs: Abnormal Lab Results - Last 24 Hours (Table) 04/15/22 04/15/22 04/15/22 Range/Units 07:02 11:22 16:35 POC Glucose (mg/dL) 210 H 273 H (70-110) mg/dL Procalcitonin 0.10 H (0.02-0.09) ng/mL 04/16/22 Range/Units 06:07 POC Glucose (mg/dL) 194 H (70-110) mg/dL Procalcitonin (0.02-0.09) ng/mL
[2022-04-16 11:53] LABS: Glucose,Whole Blood 124 mg/dL (70-110)
--- NOTE | 2022-04-16 14:20 | P.PN ---
Subjective This is a 56-year-old male who is being monitored in the intensive care unit secondary to acute hypoxic respiratory failure as well as acute CHF exa cerbation. Patient found to be in atrial fibrillation with rapid ventricular rate post intubation. The patient is currently intubated with FiO2 50%, current oxygen saturations 89%. Cardizem gtt weaned yesterday, he is on oral cardizem. Chest x-ray this morning showing pulmonary vascular congestion and bilateral pleural effusions correlate for congestive heart failure. Sodium stable at 137, creatinine is trending down at 1.68, peaked yesterday at 1.74. Infectious disease has been consulted for wound cultures positive for presumptive MRSA and gram negative bacilli to the left leg and is currently maintained on IV cefepime and IV vancomycin pending finalized cultures. He continues on IV Lasix every 12, IV steroids 60 every 6 hours. 04/10/2022 Patient continues to be monitored in intensive care unit, on mechanical ventilator with FiO2 of 50%. Remains tachycardic in the 110-120s. He also had temperature of 100 this morning. Chest xray today showing congestive heart failure with likely associated effusions. Pneumonia not excluded. Patient started on lasix gtt yesterday afternoon, he has total of 3.8 L off in the last 24 hours, He is down 5 kg since yesterday, overall his weight is up since admission. Creatinine has improved today 1.59. Cultures are being repeated with concern of fever. He is being followed closely by pulmonary, cardiology, infectious disease. 04/11/2022 Patient is monitored closely in intensive care unit, he is currently intubated on mechanical ventilator with FiO2 of 50%. He has been maintained on lasix gtt currently at 5 with urine output of 8.7 L in the last 24 hours. He continues to be sedated with propofol. Wound culture has finalized to gram negative bacilli/MRSA/enterococcus and patient is being followed by infectious disease on IV cefepime. Blood cultures were taken yesterday and are showing gram positive cocci in clusters, IV vancomycin has been started today, and repeat blood cultures taken. Follow up chest xray today showing pulmonary vascular congestion with moderate effusions/atelectasis vs. consolidation. He is receiving enteral tube feedings with vital AF and blood sugars have been elevated in the 180s to 200s. For this novolog was increased to 2 units with scale every 6 hours and also levemir HS has been added for better glycemic control. Procalcitonin follow up 0.09. Creatinine is slightly increased today at 1.71. Patient remains in atrial fibrillation with elevated heart rate in the 130s, and continues on oral cardizem. T-max over night 100.1, and blood pressure 120/70s. Patient is being followed closely by cardiology, pulmonary needle control cheniller, and infectious disease services. 04/12/2022 Patient is evaluated in intensive care unit sitting up in chair. Patient was extubated yesterday around 1330. Currently he is on oxygen support with 6L nasal cannula saturation 93%. He denies chest pain, no shortness of breath. He is tolerating some liquid diet. He continues with negative fluid balance about -3.7 L in the last 24 hours and lasix gtt has been discontinued. IV lasix 40 mg every 12 hours has been started. Repeat chest xray from today showing persistent retrocardiac atelectasis and consolidation. Blood culture showing staph epi possibly a contaminent, repeat is pending. Continues on IV cefepime managed by infectious disease. Patient continues in atrial fibrillation with heart rate in the 140s, cardiology has increased oral cardizem and started patient on metoprolol today. Labs reviewed today showing white count 13.8, BUN 87, creatinine 1.46, blood glucose in the 180s. 04/13/2022 Patient lying in bed still complaining of from dyspnea with little cough and phlegm but no chest pain he still saturating 6 L per minute. remains on cefepime and prednisone 40 mg for his COPD and positive blood culture with staph epidermidis and coagulase-negative staph. While his wound culture is growing MRSA, pseudomonas, entero-cocci, ID team on the case. Also he is on Eliquis 5 mg. Troponin is mildly elevated but patient with no chest pain. Cardiology team on the case Also echocardiogram showed ejection fraction of 50-55% Chest x-ray showing mild CHF with right basal infiltrate. On examination he has decreased breath sounds in bilateral patellar ligament edema 2+ Patient states he is on 3 L of oxygen at home for his COPD and his aviation maintenance instructor is Dr. Gregory Cisneros catheter in place with clear yellow urine 04/14/2022 Patient with no significant tachypnea at rest however is still on 67 oxygen liter per minute requirement which is similar to yesterday. He still has bilateral patellar like edema about 2+, there is mild evidence of cellulitis on his been treated with antibiotics with improvement. He confirms he is on 3 L oxygen at home. No other new complaints, his creatinine went up to 1.4 but carbon dioxide improved down to 44. He still have mild leukocytosis while on prednisone 40 mg. Slightly tachycardic. 04/15/2022 Patient is clinically doing well, his dyspnea improving. No chest pain. He is at 4 L/m of oxygen. At baseline he confirms he is a 3 L/m. Pulmonary team signed off. Collections Analyst team have no further recommendation. Per ID team discontinue IV. Cefepime and keep monitoring. He require subacute rehab. tray line worker consulted Possible discharge in 24-48 hours 04/16/2022 pt is clinically doing well , he is medically stable and is cleared for discharge by all consultants. He is off antibiotics and doing well. His postoperative go to ECF upon discharge However patient looks severely depressed and patient and family requesting psychiatrist to evaluate the patient. We will hold discharge until seen by psychiatrist Objective - Vital Signs Vital signs: Vital Signs Temp 98.4 F 04/16/22 12:10 Pulse 87 04/16/22 12:10 Resp 18 04/16/22 12:10 BP 139/80 04/16/22 12:10 Pulse Ox 94 L 04/16/22 12:10 FiO2 40 04/16/22 04:00 Intake & Output 04/15/22 04/16/22 04/16/22 18:59 06:59 18:59 Intake Total 2029 560 148 Output Total 1900 2200 Balance 130 -1640 148 Intake: IV 30 20 30 Invasive Line 7 20 Invasive Line 8 10 10 Invasive Line 9 10 30 Intake, IV Titration 200 Amount Cefepime 2 gm In Sodium 200 Chloride 0.9% 100 ml @ 25 mls/hr IVPB Q8HR [facility] Rx# :[id number] Oral 1800 540 118 Output: Urine 1900 2200 Uretheral (Cisneros) 1100 Other: Voiding Method Indwelling Catheter Indwelling Catheter Indwelling Catheter ABP, PAP, CO, CI - Last Documented Arterial Blood Pressure 137/84 - Exam GENERAL: The patient is alert and oriented x3, not in any acute distress. Well developed, well nourished. HEENT: Pupils are round and equally reacting to light. EOMI. No scleral icterus. No conjunctival pallor. Normocephalic, atraumatic. No pharyngeal erythema. No thyromegaly. CARDIOVASCULAR: S1 and S2 present. No murmurs, rubs, or gallops. PULMONARY: Chest is clear to auscultation, no wheezing . Mild basal crepitation ABDOMEN: Soft, nontender, nondistended, normoactive bowel sounds. No palpable organomegaly. MUSCULOSKELETAL: No joint swelling or deformity. EXTREMITIES: No cyanosis, clubbing, or pedal edema. NEUROLOGICAL: Gross neurological examination did not reveal any focal deficits. SKIN: No rashes. no petechiae. - Labs CBC & Chem 7: 04/14/22 10:15 04/15/22 07:02 Labs: Abnormal Lab Results - Last 24 Hours (Table) 04/15/22 04/16/22 04/16/22 Range/Units 16:35 06:07 11:51 POC Glucose (mg/dL) 273 H 194 H 124 H (70-110) mg/dL Assessment and Plan Assessment: Depression Acute hypoxic respiratory failure secondary to acute diastolic CHF exacerbation and acute COPD exacerbation, extubated on 04/12/22, currently on 6L hi flow cannula. Atrial fibrillation rate with rapid ventricular rate on oral cardizem. And Eliquis Left lower extremity ulceration and possible cellulitis with culture showing presumptive MRSA/gram neg bacili Gram Positive bacteremia Hypertension Obstructive sleep apnea History of COPD, oxygen dependent History atrial flutter previous ablation Chronic lower extremity edema Former Smoker GI Prophylaxis Protonix DVT Prophylaxis Eliquis Full Code Plan: Patient is monitored closely in ICU, has been extubated on 04/12/22 Continue ANTIBIOTIC per ID team Patiently for discharge per cardiology and pulmonary Consult psychiatry Will benefit from ECF rehab upon discharge Monitor blood glucose DVT prophylaxis: Eliquis GI prophylaxis Pepcid Prognosis is fair
--- NOTE | 2022-04-16 15:58 | P.PN ---
Subjective Progress Note Date: 04/16/22 Principal diagnosis: Acute hypoxic and hypercapnic respiratory failure secondary to acute diastolic congestive heart failure and acute exacerbation of COPD. 04/14/2022, the patient remains on 6 L of oxygen nasal cannula. Doing well. No specific complaints. Continues to diabetes and he remains in negative fluid balance. The fluid balance has been -2.2 L over the past 24 hours. The patient meanwhile has a white cell count of 13.3 hemoglobin 60.2. BUN is at 64 with a creatinine of 1.4 episode of numbness 136. He is currently on Lasix 40 mg by mouth twice a day and is also Zaroxolyn 5 mg by mouth daily. He is on a prednisone burst taper. Chest x-ray findings are stable. 04/15/2022, continues to produce excellent urine output and the patient is currently on 4 L O2 by nasal cannula. The patient is taking Zaroxolyn 5 mg by mouth daily the patient is taking Lasix 40 mg twice a day. He is sitting up in a chair. No cough. No sputum production. No chest masses or wheezing. He is also on a prednisone burst taper. He is also on anticoagulation. He got trans ferred out of the intensive care unit 48 hours ago. Tolerating his diet. Reevaluated today on 04/16/2022, patient is feeling better, breathing easier, continues to make significant amount of urine with diuretics. Patient is on 4 L nasal cannula, O2 sats is 94%, he does have BiPAP at bedside. With IPAP of 16 and EPAP of 10. Remains on Lasix at 40 mg by mouth twice a day, Diamox 250 mg IV push every 12 hours, and Zaroxolyn at 5 mg daily. Patient remains on bronchodilators, also on prednisone 40 mg daily. Patient is also on eliquis and diltiazem. Electrolytes are normal however his bicarb is 44 BUN is 62 creatinine of 1.29. Objective - Vital Signs Vital signs: Vital Signs Temp 98.4 F 04/16/22 12:10 Pulse 87 04/16/22 14:20 Resp 18 04/16/22 14:20 BP 139/80 04/16/22 12:10 Pulse Ox 94 L 04/16/22 12:10 FiO2 40 04/16/22 04:00 Intake & Output 04/15/22 04/16/22 04/16/22 18:59 06:59 18:59 Intake Total 2029 560 728 Output Total 1900 2200 Balance 130 -1640 728 Intake: IV 30 20 40 Invasive Line 7 20 Invasive Line 8 10 10 Invasive Line 9 10 40 Intake, IV Titration 200 Amount Cefepime 2 gm In Sodium 200 Chloride 0.9% 100 ml @ 25 mls/hr IVPB Q8HR [facility] Rx# :[id number] Oral 1800 [id number] Output: Urine 1900 2200 Uretheral (Cisneros) 1100 Other: Voiding Method Indwelling Catheter Indwelling Catheter Indwelling Catheter ABP, PAP, CO, CI - Last Documented Arterial Blood Pressure 137/84 - Exam Physical Exam: Revealed 67-year-old white male, obese, on 4 L nasal cannula, not in distress. Head: Atraumatic, normocephalic. HEENT:[Neck is supple.] [No neck masses.] [No thyromegaly.] [No JVD.] Chest: [Fine crackles at the bases. No rhonchi and no wheezes. Cardiac Exam: [Normal S1 and S2, no S3 gallop, no murmur.] Abdomen: [Soft, nontender, no megaly, no rebound, no guarding, normal bowel sounds.] Extremities: [No clubbing, 2+ bipedal edema, no cyanosis.] Neurological Exam: [No focal neurologic deficit.] Alert oriented 3. Psychiatric: Normal mood affect and normal mental status examination. Musculoskeletal: No deformities, and no limitation in range of motion - Labs CBC & Chem 7: 04/14/22 10:15 04/15/22 07:02 Labs: Abnormal Lab Results - Last 24 Hours (Table) 04/15/22 04/16/22 04/16/22 Range/Units 16:35 06:07 11:51 POC Glucose (mg/dL) 273 H 194 H 124 H (70-110) mg/dL Assessment and Plan Assessment: Impression: Acute hypoxic and hypercapnic respiratory failure, multifactorial. Acute diastolic congestive heart failure. Acute exacerbation of COPD. Atrial fibrillation with RVR. Morbid obesity. Severe underlying COPD, FEV1 presumably 22% of the predicted Chronic cor pulmonale Former smoker Recommendation: Continue diuretics Continue to titrate FiO2 down. Continue to monitor electrolytes Continue to monitor fluid status strict I's and O's BiPAP at night. Continue prednisone burst and taper Continue incentive spirometry IV fluids at KVO Consider placement/discharge planning Time with Patient: Less than 30
[2022-04-16 16:55] LABS: Glucose,Whole Blood 299 mg/dL (70-110)
[2022-04-16 20:16] LABS: Glucose,Whole Blood 197 mg/dL (70-110)
[2022-04-16] MEDS: INSULIN DETEMIR (LEVEMIR) 100 UNIT/ML SYR SQ SCH (20:45)
[2022-04-16] MEDS: METOPROLOL TARTRATE 50 MG TAB PO SCH (20:46)
[2022-04-16] MEDS: DILTIAZEM CD 120 MG CAP.ER.24H PO SCH (20:46)
[2022-04-17 06:31] LABS: Glucose,Whole Blood 116 mg/dL (70-110)
[2022-04-17] MEDS: INSULIN ASPART (NovoLOG) 100 UNIT/ML VIAL SQ SCH ×8 (06:40→22:16)
--- NOTE | 2022-04-17 08:32 | P.PN ---
Subjective Progress Note Date: 04/16/22 Principal diagnosis: Positive cultures left leg and possible cellulitis Patient is a 56-year-old male with a past medical history significant for COPD presenting to the hospital 4 days ago for evaluation of difficulty in breathing patient symptom has been going on for a couple of weeks before presentation to the hospital and the patient did have difficulty maintaining his O2 sats patient is not getting intubated also noticed to have swelling to the lower simply with some erythema and superficial ulceration culture was showing presented to MRSA and gram-negative the patient was extubated afternoon of 04/11/2022 on today's evaluation that is 04/16/2022, the patient remains continues to be afebrile, the patient is breathing comfortably on nasal cannula oxygen. The patient denies chest pain, the patient cough is decreased density and not bringing up any sputum, no abdominal pain or diarrhea, the patient denies pain to lower extremity Objective - Vital Signs Vital signs: Vital Signs Temp 98.4 F 04/16/22 12:10 Pulse 87 04/16/22 14:20 Resp 18 04/16/22 14:20 BP 139/80 04/16/22 12:10 Pulse Ox 94 L 04/16/22 12:10 FiO2 40 04/16/22 04:00 Intake & Output 04/15/22 04/16/22 04/16/22 18:59 06:59 18:59 Intake Total 2030 560 728 Output Total 1900 2200 Balance 130 -1640 728 Intake: IV 30 20 40 Invasive Line 7 20 Invasive Line 8 10 10 Invasive Line 9 10 40 Intake, IV Titration 200 Amount Cefepime 2 gm In Sodium 200 Chloride 0.9% 100 ml @ 25 mls/hr IVPB Q8HR [facility] Rx# :[id number] Oral 1800 [id number] Output: Urine 1900 2200 Uretheral (Cisneros) 1100 Other: Voiding Method Indwelling Catheter Indwelling Catheter Indwelling Catheter ABP, PAP, CO, CI - Last Documented Arterial Blood Pressure 137/84 - Exam GENERAL DESCRIPTION: Middle-age male up in the chair RESPIRATORY SYSTEM: Unlabored breathing , decreased breath sounds at bases HEART: S1 S2 regular rate and rhythm , ABDOMEN: Soft , no tenderness EXTREMITIES: Diffuse swelling to bilateral lower extremity minimal erythema - Labs CBC & Chem 7: 04/14/22 10:15 04/15/22 07:02 Labs: Abnormal Lab Results - Last 24 Hours (Table) 10/16/22 10/17/22 10/17/22 Range/Units 16:35 06:07 11:51 POC Glucose (mg/dL) 273 H 194 H 124 H (70-110) mg/dL Assessment and Plan (1) Cellulitis Current Visit: Yes Status: Acute Code(s): L03.90 - CELLULITIS, UNSPECIFIED SNOMED Code(s): 198590024 Plan: 1patient presented to hospital with acute respiratory failure currently on the ventilator likely multifactorial in this patient with underlying COPD and not concerning for increased swelling to bilateral lower extremity and some superficial ulceration and redness concerning for possible cellulitis with local culture not showing gram-negative and present to MRSA. 2positive blood culture with gram-positive cocci finalized for staph epi likely contamination, vancomycin has been discontinued 3-patient did have improvement in bilateral lower extremity swelling and redness currently and the patient inflammatory markers have normalized , patient has received adequate antibiotic therapy and the patient will be monitored closely off antibiotics
--- NOTE | 2022-04-17 09:03 | CDI ---
Documentation Clarification Form Date: 04/17/2022 08:44:06 AM From: Ayana Segundo CCS, CCDS Admit Date: 04/05/2022 05:34:00 PM Patient Name: Meir Abraham Visit Number: [id number] Discharge Date: ATTENTION: The Clinical Documentation Specialists (CDI) and [facility] Coding Staff appreciate your assistance in clarifying documentation. Please respond to the clarification below the line at the bottom and electronically sign. The CDI & [facility] Coding staff will review the response and follow-up if needed. Please note: Queries are made part of the Legal Health Record. If you have any questions, please contact the author of this message via ITS. Dr. Nikhil Hollins. Sheet: The patient presented with the following clinical indicators. Additional clarification regarding the etiology/cause of the clinical indicators is requested. Gram Positive Bacteremia is documented beginning with the 04/11 Attending Progress note through 04/16. History/Risk Factors per the 04/05 H/P & the 04/05 ED Note: Atrial Fibrillation, Asthma, Obesity, Sleep apnea, O2 dependent, Depression, Smoker. Clinical Indicators: Presented to the ED on 04/05 with SOB for several days, having issues with home O2, occasional cough, diffuse swelling legs & abdomen, mild chest discomfort. Possible history of CHF. Admit with Atrial Fibrillation with RVR, CHF, COPD. 04/05 VS: T 97.9, P 60, 154, R 26 (sob, labored, cough), BP 187/136, 127/98; PO 60-96 6Lnc, BMI: 35.7 04/05 LAB: WBC 7.7, Plt Ct 136, Neutrophils 5.9, Lymphocytes 0.7, Lactic Acid 1.5. 04/05 Blood Culture x2 (Final): no growth @ 144 hrs. 04/05 Wound Culture (Final): Acinetobacter lwoffi grp, MRSA, Enterococcus faecalis, Pseudomonas fluorescens/putida. 04/10 VS: T 100.1, P 112, R 26, Arterial BP 109/55, PO 91 on vent 04/10 LAB: WBC 9.7, Plt Ct 154, Neutrophils 9.1, Lymphocytes 0.1. 04/10 Blood Culture x2 (Final): 1 pos Staphylococcus epidermidis 04/11 Blood Culture x1 (Final): Staphylococcus epidermidis Treatment 04/05: CHF Protocol, Cisneros cath initiation, Consults: Pulmonary, Cardiac Rehab, Dietitian, O2 6L - BiPAP, IV Solumedrol 125 mg x1, IV Cardizem Drip Bolus 5 mg x1, IV Cardizem 125 mls @ 5 mls/hr q24H, IV Cefazolin 50 mls @ 100 mls/hr x1, IV Morphine 4 mg x1, IV Lasix 40 mg q8H. 04/06: IV Cefazolin 50 mls @ 100 mls/hr q8H, IV Levophed. 04/08: IV Cefepime 100 mls @ 25 mls/hr q8H, IV Vancomycin 500 mls @ 167 mls/hr x1 - q16H. In your professional opinion, please clarify if these findings signify one of the following conditions: [ ] Sepsis POA [ ] Sepsis, Not POA [ ] Severe Sepsis with organ failure [ ] Septic Shock [ ] Other, please specify: [ ] Unable to determine (Template Last Reviewed: August 2020) No sepsis MTDD
[2022-04-17] MEDS: predniSONE 20 MG TAB PO SCH (09:26)
[2022-04-17] MEDS: METOPROLOL TARTRATE 50 MG TAB PO SCH ×4 (09:26→20:08)
[2022-04-17] MEDS: metOLazone 5 MG TAB PO SCH (09:27)
[2022-04-17] MEDS: FUROSEMIDE 40 MG TAB PO SCH ×2 (09:27→15:41)
[2022-04-17] MEDS: FAMOTIDINE 20 MG TAB PO SCH ×2 (09:27→20:08)
[2022-04-17] MEDS: HYDROmorphone 1 MG/ML 1 ML SYRINGE IVP PRN (09:27)
[2022-04-17] MEDS: DILTIAZEM CD 180 MG CAP.ER.24H PO SCH (09:27)
[2022-04-17] MEDS: APIXABAN 5 MG TAB PO SCH ×2 (09:27→20:08)
--- NOTE | 2022-04-17 11:41 | P.PN ---
Subjective Progress Note Date: 04/17/22 HISTORY OF PRESENT ILLNESS: This is a 57 year old male who follows with a staff antisubmarine officer out of [facility]. Patient is admitted to the hospital secondary to COPD, respiratory failure, CHF, and afib with RVR. Patient examined this morning. He is sitting up in the chair. Denies chest pain or pressure. Denies SOB. Telemetry reveals atrial fibrillation with heart rate around 110. 04/17/2022 Patient examined this morning at the bedside. Patient denies chest pain or pressure. Denies SOB. Telemetry reveals atrial fibrillation with heart rate around 110. PHYSICAL EXAM: VITAL SIGNS: Reviewed. GENERAL: Well-developed in no acute distress. NECK: Supple. No JVD or thyromegaly LUNGS: Respirations even and unlabored. Lungs essentially clear to auscultation bilaterally. HEART: Irregular rate and rhythm. S1 and S2 heard. EXTREMITIES: Normal range of motion. No clubbing or cyanosis. Peripheral pulses intact. No lower extremity edema ASSESSMENT: Persistent atrial fibrillation with RVR Acute on chronic heart failure with preserved ejection fraction, currently euvolemic Acute hypoxic respiratory failure requiring mechanical ventilation, since extubated Acute COPD exacerbation Elevated troponins, not suggestive of acute coronary syndrome History of atrial flutter with ablation in July 2021 Venous stasis ulcers, positive for gram-negative bacilli PLAN: Continue current cardiac medications Increase metoprolol to 50 mg TID for optimal heart rate control Patient is currently stable for discharge to [facility] today from a cardiac standpoint Patient to follow up outpatient with his primary staff antisubmarine officer Nurse practitioner note has been reviewed by physician. Signing provider agrees with the documented findings, assessment, and plan of care. Objective - Vital Signs Vital signs: Vital Signs Temp 98.3 F 04/17/22 09:23 Pulse 88 04/17/22 09:24 Resp 16 04/17/22 09:24 BP 147/78 04/17/22 09:23 Pulse Ox 97 04/17/22 09:23 FiO2 40 04/16/22 23:44 Intake & Output 04/16/22 04/17/22 04/17/22 18:59 06:59 18:59 Intake Total 846 256 10 Output Total 2400 1600 1500 Balance -4898 -2214 -4250 Intake: IV 40 20 10 Invasive Line 9 40 20 10 Oral 806 236 Output: Urine 2400 1600 1500 Uretheral (Cisneros) 1200 Other: Voiding Method Indwelling Catheter Indwelling Catheter Indwelling Catheter # Bowel Movements 1 ABP, PAP, CO, CI - Last Documented Arterial Blood Pressure 137/84 - Labs CBC & Chem 7: 04/14/22 10:15 04/15/22 07:02 Labs: Abnormal Lab Results - Last 24 Hours (Table) 04/16/22 04/16/22 04/16/22 Range/Units 11:51 16:51 20:15 POC Glucose (mg/dL) 124 H 299 H 197 H (70-110) mg/dL 04/17/22 Range/Units 06:29 POC Glucose (mg/dL) 116 H (70-110) mg/dL
[2022-04-17 11:42] LABS: Glucose,Whole Blood 146 mg/dL (70-110)
--- NOTE | 2022-04-17 13:34 | P.CN ---
Psychiatric Consult - . Consult date: 04/17/22 Consult:: 04/17/22 13:32 IDENTIFYING DATA: This patient is a 57-year-old male with a significant history of depression, age of fibrillation, and sleep apnea, who presents to the hospital for shortness of breath. HISTORY OF PRESENT ILLNESS: The patient presented to the hospital on 04/05/2022. The patient has had a prolonged hospitalization complicated by underlying COPD, cellulitis, and bilateral lower extremity swelling. Psychiatry has been consulted for evaluation and physical depression as the patient did endorse suicidal ideation and a history of depression that was managed previously with Wellbutrin. Upon assessment, the patient does report a low mood. When asked about any specific stressors, the patient is only able to identify his current ongoing issues regarding his health as well as his concern for his 82-year-old mother. He reports that she is doing well for her age however remains concerned about her well-being. In regards to depressive symptoms, the patient does report some difficulty with sleep due to sleep apnea and an overall low mood. He has however denying any suicidal or homicidal ideation, intention, and/or plan today. The patient vehemently denies any prior attempts at suicide and states that he "does not have the cajones" to go through with any plan. The patient reports that he was previously treated with Wellbutrin however felt that the medication has been ineffective. In regards to other mood symptoms, the patient is not reporting any significant history of avelina or hypomania. He denies any grandiosity, periods of excessive energy, or impulsivity. The rosario ent is denying any significant history of psychosis. He reports no auditory or visual hallucinations. He denies any paranoia or other delusions. PAST PSYCHIATRIC HISTORY: Patient has a history of depression. The patient reports that he was on Wellbutrin 300 mg daily for depression. Patient denies any previous psychiatric hospitalizations. Patient denies any psychiatric outpatient follow-up. Patient denies any history of suicide attempts in the past. PAST MEDICAL HISTORY: Past Medical History: Atrial Fibrillation, Asthma, Sleep Apnea/CPAP/BIPAP History of Any Multi-Drug Resistant Organisms: None Reported Past Surgical History: Hernia Repair, Joint Replacement, Orthopedic Surgery Additional Past Surgical History / Comment(s): rt hip, rt foot Past Anesthesia/Blood Transfusion Reactions: No Reported Reaction Past Psychological History: Depression Smoking Status: Current every day smoker ALLERGIES: NO KNOWN DRUG ALLERGIES CHEMICAL DEPENDENCY HISTORY: Patient reports that he has now quit tobacco. He was previously smoking approximately a pack per day. He reports no significant alcohol use or illicit drug use. He reports no marijuana use. FAMILY PSYCHIATRIC/SUBSTANCE USE HISTORY: No reported family psychiatric history or substance use history. SOCIAL HISTORY: Patient reports that he is . He states that children. He is currently listed as unemployed. He does report some support from his mother and siblings however states that he does not speak with his siblings as often as he would like to. MENTAL STATUS EXAM: General Appearance: Patient appears to be stated age is alert, pleasant, and cooperative. Patient appears to have slightly disheveled hygiene and grooming wearing hospital gown with fair eye contact. Obese body habitus. Nasal cannula in place. Behavior: Patient displays some restlessness. He is constantly moving his upper extremities. Appropriately tearful Speech: Patient's speech is nonspontaneous and at times difficult to understand. However fluent with normal volume. Mood/Affect: Patient reports their mood is "sad", affect is congruent and tearful. Suicidality/Homicidality: Patient denies having any suicidal or homicidal ideation intent or plan. Perceptions: Patient denies any visual hallucinations and denies any auditory hallucinations Though content/process: There is no evidence of any delusional thought content and thought process is linear and goal-directed. Memory and concentration: AOX3, grossly intact for the purposes of this session. Can spell "WORLD" backwards Judgment and insight: Fair IMPRESSIONS: Major depressive disorder, likely exacerbated by ongoing medical issues including hypoxia, sleep apnea, and prolonged hospitalization. PLAN: -At this time patient DOES NOT meet criteria for inpatient psychiatric admission. Patient reports no prior attempts at suicide and is not endorsing any suicidal or homicidal ideation, intention, and/or plan. -Delirium precautions recommended with patient including - avoiding use of narcotics and HOSPICE CARE TRANSITIONS COORDINATOR sedatives, limit anticholinergic medications when possible, frequent re-orientation, minimize use of restraints, open window shades during the day and close them at night -Would recommend the following medication changes/additions: Patient's current presentation is likely exacerbated by his ongoing medical issues. Supportive psychotherapy was given during the psychiatric evaluation and a strong recommendation for spiritual care and outpatient psychotherapy is made. Due to acute kidney injury, elevated troponin, we will be conservative with medication management. May consider reinitiation of Wellbutrin at a lower dose such as 75 mg daily for management of depression. -Sleep apnea and hypoxia should be managed as these may mimic and exacerbate depression. -Continue your medical management. -Patient is cleared psychiatrically for discharge with recommendation for outpatient follow-up. Psychiatry will sign off at this point, please contact with any questions. Vital Signs Temp 98.0 F 04/17/22 12:24 Pulse 91 04/17/22 12:24 Resp 16 04/17/22 12:24 BP 151/85 04/17/22 12:24 Pulse Ox 95 04/17/22 12:24 FiO2 40 04/16/22 23:44 Intake & Output 04/16/22 04/17/22 04/17/22 18:59 06:59 18:59 Intake Total 846 256 590 Output Total 2400 1600 1500 Balance -8244 -2854 -910 Intake: IV 40 20 20 Invasive Line 9 40 20 20 Oral 806 236 570 Output: Urine 2400 1600 1500 Uretheral (Cisneros) 1200 Other: Voiding Method Indwelling Catheter Indwelling Catheter Indwelling Catheter # Bowel Movements 1 ABP, PAP, CO, CI - Last Documented Arterial Blood Pressure 137/84 Laboratory Results WBC 13.3 k/uL (3.8-10.6) H 04/14/22 10:15 RBC 5.83 m/uL (4.30-5.90) 04/14/22 10:15 Hgb 16.6 gm/dL (13.0-17.5) 04/14/22 10:15 Hct 53.3 % (39.0-53.0) H 04/14/22 10:15 MCV 91.4 fL (80.0-100.0) 04/14/22 10:15 MCH 28.4 pg (25.0-35.0) 04/14/22 10:15 MCHC 31.1 g/dL (31.0-37.0) 04/14/22 10:15 RDW 14.0 % (11.5-15.5) 04/14/22 10:15 Plt Count 91 k/uL (150-450) L 04/14/22 10:15 MPV 10.7 04/14/22 10:15 Neutrophils % 84 % 04/14/22 10:15 Lymphocytes % 6 % 04/14/22 10:15 Monocytes % 8 % 04/14/22 10:15 Eosinophils % 1 % 04/14/22 10:15 Basophils % 0 % 04/14/22 10:15 Neutrophils # 11.2 k/uL (1.3-7.7) H 04/14/22 10:15 Lymphocytes # 0.8 k/uL (1.0-4.8) L 04/14/22 10:15 Monocytes # 1.1 k/uL (0-1.0) H 04/14/22 10:15 Eosinophils # 0.2 k/uL (0-0.7) 04/14/22 10:15 Basophils # 0.0 k/uL (0-0.2) 04/14/22 10:15 Hypochromasia Marked 04/14/22 10:15 Poikilocytosis Slight 04/05/22 15:18 PT 12.4 sec (9.0-12.0) H 04/05/22 15:18 INR 1.2 (<1.2) H 04/05/22 15:18 APTT 20.1 sec (22.0-30.0) L 04/05/22 15:18 Sample Site verónica 04/11/22 13:17 ABG pH 7.45 (7.35-7.45) 04/11/22 13:17 ABG pCO2 72 mmHg (35-45) H* 04/11/22 13:17 ABG pO2 76 mmHg (83-108) L 04/11/22 13:17 ABG HCO3 50 mmol/L (21-25) H* 04/11/22 13:17 ABG Total CO2 53 mmol/L (19-24) H 04/11/22 13:17 ABG O2 Saturation 94.2 % (94-97) 04/11/22 13:17 ABG Base Excess 26.3 mmol/L 04/11/22 13:17 Zachary Test na 04/11/22 13:17 FiO2 50 % 04/11/22 13:17 Sodium 136 mmol/L (137-145) L 04/15/22 07:02 Potassium 3.5 mmol/L (3.5-5.1) 04/15/22 07:02 Chloride 84 mmol/L (98-107) L 04/15/22 07:02 Carbon Dioxide 44 mmol/L (22-30) H* 04/15/22 07:02 Anion Gap 8 mmol/L 04/15/22 07:02 BUN 62 mg/dL (9-20) H 04/15/22 07:02 Creatinine 1.29 mg/dL (0.66-1.25) H 04/15/22 07:02 Est GFR (CKD-EPI)AfAm 70 (>60 ml/min/1.73 sqM) 04/15/22 07:02 Est GFR (CKD-EPI)NonAf 61 (>60 ml/min/1.73 sqM) 04/15/22 07:02 Glucose 82 mg/dL (74-99) 04/15/22 07:02 POC Glucose (mg/dL) 146 mg/dL (70-110) H 04/17/22 11:40 POC Glu Contact Center Manager ID Carin Rubin 04/17/22 11:40 Plasma Lactic Acid Ankur 1.5 mmol/L (0.7-2.0) 04/05/22 15:18 Calcium 8.6 mg/dL (8.4-10.2) 04/15/22 07:02 Magnesium 2.3 mg/dL (1.6-2.3) 04/12/22 03:55 Total Bilirubin 0.9 mg/dL (0.2-1.3) 04/06/22 05:36 AST 26 U/L (17-59) 04/06/22 05:36 ALT 20 U/L (4-49) 04/06/22 05:36 Alkaline Phosphatase 79 U/L (38-126) 04/06/22 05:36 Troponin I 0.036 ng/mL (0.000-0.034) H* 04/05/22 21:09 C-Reactive Protein 0.7 mg/dL (<1.0) 04/15/22 07:02 NT-Pro-B Natriuret Pep 4840 pg/mL 04/05/22 15:18 Total Protein 5.8 g/dL (6.3-8.2) L 04/06/22 05:36 Albumin 3.3 g/dL (3.5-5.0) L 04/06/22 05:36 Procalcitonin 0.10 ng/mL (0.02-0.09) H 04/15/22 07:02 Coronavirus (PCR) Not Detected (Not Detectd) 04/05/22 Unknown Influenza Type A RNA Not Detected (Not Detectd) 04/05/22 Unknown Influenza Type B (PCR) Not Detected (Not Detectd) 04/05/22 Unknown Allergies Allergy/AdvReac Type Severity Reaction Status Date / Time No Known Allergies Allergy Verified 04/05/22 17:43 04/17/22 13:32
--- NOTE | 2022-04-17 13:59 | P.DS ---
Providers Date of admission: 04/05/22 17:34 Attending physician: Rashaad Peres Consults: 04/05/22 17:26 Consult Physician Routine Consulting Provider: Mark Maciel Consult Reason/Comments: copd, dyspnea Do you want consulting provider notified?: Yes 04/06/22 00:11 Consult Physician Stat Consulting Provider: Mark Maciel Consult Reason/Comments: ICU admit Do you want consulting provider notified?: Already Contacted 04/06/22 11:54 Consult Physician Routine Consulting Provider: Tonia Ramos Consult Reason/Comments: afib RVR Do you want consulting provider notified?: Yes 04/08/22 09:35 Consult Physician Routine Consulting Provider: Kamryn Galeana Consult Reason/Comments: Positive MRSA wound left leg Do you want consulting provider notified?: Yes 04/16/22 14:20 Consult Physician Urgent Consulting Provider: Uche Fabian Consult Reason/Comments: depression Do you want consulting provider notified?: Yes 04/16/22 14:40 Consult Physician Routine Consulting Provider: Mosiés Wade Consult Reason/Comments: Depression/suicidal ideation Do you want consulting provider notified?: Yes Primary care physician: [facility] Course: Diagnoses: Depression Acute hypoxic respiratory failure secondary to acute diastolic CHF exacerbation and acute COPD exacerbation, extubated on 04/12/22, currently on 6L hi flow cannula. Atrial fibrillation rate with rapid ventricular rate on oral cardizem. And Eliquis Left lower extremity ulceration and possible cellulitis with culture showing presumptive MRSA/gram neg bacili Gram Positive bacteremia Hypertension Obstructive sleep apnea History of COPD, oxygen dependent History atrial flutter previous ablation Chronic lower extremity edema Former Smoker Hospital course: This is a 56-year-old male with multiple medical problems who presents with respiratory distress secondary to COPD and CHF exacerbation with acute hypoxic respiratory failure and bilateral pleural effusion patient has been monitored and treated extensively in the intensive care unit with pulmonary/critical care following him closely as well as rubber and pounder. Patient was treated with steroids and diuretics and he showed interval improvement and his oxygen requirements improved down to his baseline of 3-4 L/m prior to discharge. Patient breathing quietly and he denies any chest pain or other respiratory symptoms and has been cleared for discharge by both pulmonary and cardiology services. Also patient denies any other symptoms, no abdominal pain or urinary complaints. No fever. Patient was treated for suspected positive blood culture, most likely contamination and he finished his treatment with no need for antibiotics per ID team on discharge Psychiatrist evaluated him for possible depression and he recommended maintaining start Wellbutrin, patient does not need inpatient psychiatric admission however outpatient follow-up with psychiatric is recommended. Patient back to baseline and he was cleared for discharge by all consultants Problems and management plan were discussed with the patient and he verbalized understanding and acceptance Patient was found stable and can be discharged to [facility] in guarded prognosis however he needs follow-up as an outpatient. Patient was instructed to follow up with PCP within one week and patient agrees Patient recommended to follow-up with aerosol supervisor Dr. Yu in 1-[address] Ramos rubber and pounder in 1-2 weeks Physical exam -Gen: patient is a AAOx3, no distress. Obese CVS: S1-S2, RRR, no murmur -Lungs: B/L CTA, no wheezing. Not tachypneic on nasal cannula 3 L/m Abdomen: soft, no distention, no tenderness, positive bowel sounds Extremity: no leg edema or induration Time spent more than 35 minutes Plan - Discharge Summary Discharge Rx Participant: Yes New Discharge Prescriptions: New Ipratropium-Albuterol Nebulize [Duoneb 0.5 mg-3 mg/3 ml Soln] 3 ml INHALATION RT-Q2H PRN each PRN Reason: Shortness Of Breath Or Wheezing Insulin Detemir (Levemir) [Levemir] 20 unit SQ HS each INSULIN ASPART (NovoLOG) [NovoLOG (formulary)] 0 unit SQ ACHS each metOLazone [Zaroxolyn] 5 mg PO DAILY tab Diltiazem Cd [Cardizem CD] 120 mg PO HS cap Diltiazem Cd [Cardizem CD] 360 mg PO DAILY cap Furosemide [Lasix] 40 mg PO BID@0900,1600 tab Metoprolol Tartrate [Lopressor] 50 mg PO TID #0 tab INSULIN ASPART (NovoLOG) [NovoLOG (formulary)] 3 unit SQ ACHS each predniSONE 10 mg PO DIRECTED #40 tab Continue Sodium Chloride [[place]] 1 spr EA NOSTRIL DAILY PRN PRN Reason: Allergy Symptoms Albuterol Sulfate [Proair Hfa] 2 puff INHALATION RT-Q4H PRN PRN Reason: Wheezing Fluticasone/Vilanterol [Breo Ellipta 100-25 Mcg Inhaler] 1 puff INHALATION RT-DAILY Budesonide/Glycopyr/Formoterol [Breztri Aerosphere Inhaler] 1 puff INHALATION RT-BID Discontinued Acetaminophen Tab [Tylenol Tab] 1,000 mg PO BID carvediloL [Coreg] 12.5 mg PO BID Furosemide [Lasix] 40 mg PO DAILY #30 tab Aspirin EC [Ecotrin Low Dose] 81 mg PO DAILY Sulfamethox-Tmp 800-160Mg [Bactrim DS 800-160 mg] 1 tab PO MOWEFR dilTIAZem HCL [dilTIAZem HCL 12Hr ER] 120 mg PO BID No Action Apixaban [Eliquis] 5 mg PO BID #60 tab Melatonin 5 mg PO HS Ubidecarenone [Coenzyme Q10] 200 mg PO DAILY Flaxseed Oil 1200mg 1 cap PO DAILY Discharge Medication List Apixaban [Eliquis] 5 mg PO BID #60 tab 05/13/21 [Rx] Melatonin 5 mg PO HS 07/26/21 [History] Albuterol Sulfate [Proair Hfa] 2 puff INHALATION RT-Q4H PRN 04/05/22 [History] Budesonide/Glycopyr/Formoterol [Breztri Aerosphere Inhaler] 1 puff INHALATION RT-BID 04/05/22 [History] Flaxseed Oil 1200mg 1 cap PO DAILY 04/05/22 [History] Fluticasone/Vilanterol [Breo Ellipta 100-25 Mcg Inhaler] 1 puff INHALATION RT- DAILY 04/05/22 [History] Sodium Chloride [[place]] 1 spr EA NOSTRIL DAILY PRN 04/05/22 [History] Ubidecarenone [Coenzyme Q10] 200 mg PO DAILY 04/05/22 [History] Diltiazem Cd [Cardizem CD] 120 mg PO HS cap 04/17/22 [Rx] Diltiazem Cd [Cardizem CD] 360 mg PO DAILY cap 04/17/22 [Rx] Furosemide [Lasix] 40 mg PO BID@0900,1600 tab 04/17/22 [Rx] INSULIN ASPART (NovoLOG) [NovoLOG (formulary)] 0 unit SQ ACHS each 04/17/22 [Rx] INSULIN ASPART (NovoLOG) [NovoLOG (formulary)] 3 unit SQ ACHS each 04/17/22 [Rx] Insulin Detemir (Levemir) [Levemir] 20 unit SQ HS each 04/17/22 [Rx] Ipratropium-Albuterol Nebulize [Duoneb 0.5 mg-3 mg/3 ml Soln] 3 ml INHALATION RT-Q2H PRN each 04/17/22 [Rx] Metoprolol Tartrate [Lopressor] 50 mg PO TID #0 tab 04/17/22 [Rx] metOLazone [Zaroxolyn] 5 mg PO DAILY tab 04/17/22 [Rx] predniSONE 10 mg PO DIRECTED #40 tab 04/17/22 [Rx] Follow up Appointment(s)/Referral(s): Parish Iverson MD [Primary Care Provider] - 1-2 days Activity/Diet/Wound Care/Special Instructions: Heart healthy diet activity is as tolerated Please be advised patient may require less insulin coverage if he start tapering prednisone.
[2022-04-17] MEDS ORDERED: buPROPion 75 MG TAB PO SCH (14:00)
[2022-04-17] MEDS ORDERED: QUEtiapine 25 MG TAB PO SCH (15:00)
[2022-04-17] MEDS: buPROPion 75 MG TAB PO SCH (15:42)
[2022-04-17 16:49] LABS: Glucose,Whole Blood 184 mg/dL (70-110)
[2022-04-17] MEDS ORDERED: QUEtiapine 25 MG TAB PO ONE (17:49)
[2022-04-17] MEDS ORDERED: HALOPERIDOL LACTATE 5 MG/ML 1 ML VIAL IM PRN (18:37)
[2022-04-17 19:02] LABS: HCT 50.6 % (39.0-53.0); HGB 16.3 gm/dL (13.0-17.5); Hypochromasia Moderate; MCH 28.6 pg (25.0-35.0); MCHC 32.2 g/dL (31.0-37.0); MCV 88.9 fL (80.0-100.0); Mean Platelet Volume 9.9; Platelet Count 114 k/uL (150-450); RBC 5.69 m/uL (4.30-5.90); WBC 16.7 k/uL (3.8-10.6)
[2022-04-17 19:36] LABS: ABG Base Excess 15.7 mmol/L; ABG Oxygen Saturation 97.1 % (94-97); ABG PCO2 61 mmHg (35-45); ABG PH 7.42 (7.35-7.45); ABG PO2 89 mmHg (83-108); ABG TCO2 42 mmol/L (19-24); Allen Test Performed? Yes
[2022-04-17 19:42] LABS: ABG HCO3 40 mmol/L (21-25)
[2022-04-17] MEDS: DILTIAZEM CD 120 MG CAP.ER.24H PO SCH (20:07)
[2022-04-17 20:15] LABS: Glucose,Whole Blood 145 mg/dL (70-110)
[2022-04-17] MEDS: INSULIN DETEMIR (LEVEMIR) 100 UNIT/ML SYR SQ SCH (22:16)
--- NOTE | 2022-04-18 04:05 | CT ---
EXAMINATION TYPE: CT brain wo con DATE OF EXAM: 04/18/2022 COMPARISON: 05/08/2021 HISTORY: ams CT DLP: 1223.4 mGycm Automated exposure control for dose reduction was used. Images of the brain obtained with no contrast. There is mild cerebral atrophy. There is no mass effect or midline shift. No sign of intracranial hem orrhage. The calvarium is intact. IMPRESSION: Minimal atrophy appropriate for age. No acute intracranial abnormality. No adverse change.
[2022-04-18 06:16] LABS: Glucose,Whole Blood 102 mg/dL (70-110)
[2022-04-18] MEDS: INSULIN ASPART (NovoLOG) 100 UNIT/ML VIAL SQ SCH ×8 (06:26→20:55)
--- NOTE | 2022-04-18 10:09 | CDI ---
Documentation Clarification Form Date: 04/18/2022 09:52:00 AM From: Ayana Segundo CCS, CCDS Admit Date: 04/05/2022 05:34:00 PM Patient Name: Meir Abraham Visit Number: [id number] Discharge Date: ATTENTION: The Clinical Documentation Specialists (CDI) and [facility] Coding Staff appreciate your assistance in clarifying documentation. Please respond to the clarification below the line at the bottom and electronically sign. The CDI & [facility] Coding staff will review the response and follow-up if needed. Please note: Queries are made part of the Legal Health Record. If you have any questions, please contact the author of this message via ITS. Dr. Tejeda Sheet: Per the 04/17 Field Auto Appraiser's Note, the patient was authorized for discharge to a SNF but then refused patient due to being on IV Haldol and requiring a sitter. Per the 04/17 Nurse Note: Patient is refusing to wear monitoring specialist & is trying to rip out IV, Cisneros Catheter and always taking off O2. Per the 04/17 Psychiatric consult: Patient displays some restlessness. Additional clarification regarding the patient's behavior with restlessness. History/Risk Factors per the 04/05 H/P & the 04/05 ED Note: Atrial Fibrillation, Asthma, Obesity, Sleep apnea, O2 dependent, Depression, Smoker. Clinical Indicators: Presented to the ED on 04/05 with SOB for several days, having issues with home O2, occasional cough, diffuse swelling legs & abdomen, mild chest discomfort. Possible history of CHF. Admit with Atrial Fibrillation with RVR, CHF, COPD. 04/05 VS: T 97.9, P 60, 154, R 26 (sob, labored, cough), BP 187/136, 127/98; PO 60-96 6Lnc, BMI: 35.7 04/05 LAB: WBC 7.7, Plt Ct 136, Neutrophils 5.9, Lymphocytes 0.7, Lactic Acid 1.5. 04/05 Blood Culture x2 (Final): no growth @ 144 hrs. 04/05 Wound Culture (Final): Acinetobacter lwoffi grp, MRSA, Enterococcus faecalis, Pseudomonas fluorescens/putida. 04/17: T 98.0, P 91 (irregular), R 16 (sob), BP 151/85, 134/75; PO 95 4Lnc 04/17 LAB: WBC 16.7, Plt Ct 114, Glucose 184 04/17 Blood Gas: pCO2 61, HCO3 40, Total CO2 42, O2 Sat 97.1 04/18 CT Brain: Minimal atrophy appropriate for age, no acute intracranial abnormality. Treatment 04/05: CHF Protocol, Cisneros cath initiation, Consults: Pulmonary, Cardiac Rehab, Dietitian, O2 6L - BiPAP, IV Solumedrol 125 mg x1, IV Cardizem Drip Bolus 5 mg x1, IV Cardizem 125 mls @ 5 mls/hr q24H, IV Cefazolin 50 mls @ 100 mls/hr x1, IV Morphine 4 mg x1, IV Lasix 40 mg q8H. 04/06 Patient was Intubated, Extubated 04/11. 04/17: IM Haldol 2 mg q6H/prn, po Seroquel 25 mg Daily, po Wellbutrin 75 mg Daily Please clarify the following: [ ] Metabolic Encephalopathy [ ] Septic Encephalopathy [ ] Toxic Encephalopathy [ ] Other, please specify [ ] Unable to determine (Template Last Revised: August 2020) Multifactorial, could be toxic/metabolic encephalopathy. Rule out neurological causes MTDD
--- NOTE | 2022-04-18 10:13 | P.PN ---
Subjective Progress Note Date: 04/18/22 HISTORY OF PRESENT ILLNESS: This is a 57 year old male who follows with a optics engineer out of [facility]. Patient is admitted to the hospital secondary to COPD, respiratory failure, CHF, and afib with RVR. Patient examined this morning. He is sitting up in the chair. Denies chest pain or pressure. Denies SOB. Telemetry reveals atrial fibrillation with heart rate around 110. 04/17/2022 Patient examined this morning at the bedside. Patient denies chest pain or pressure. Denies SOB. Telemetry reveals atrial fibrillation with heart rate around 110. 04/18/2022 Patient examined this morning at the bedside. Patient received Haldol and is sleeping. He appears comfortable. Telemetry reveals atrial fibrillation with controlled ventricular rates. PHYSICAL EXAM: VITAL SIGNS: Reviewed. GENERAL: Well-developed in no acute distress. NECK: Supple. No JVD or thyromegaly LUNGS: Respirations even and unlabored. Lungs essentially clear to auscultation bilaterally. HEART: Irregular rate and rhythm. S1 and S2 heard. EXTREMITIES: Normal range of motion. No clubbing or cyanosis. Peripheral pulses intact. No lower extremity edema ASSESSMENT: Persistent atrial fibrillation with RVR Acute on chronic heart failure with preserved ejection fraction, currently euvolemic Acute hypoxic respiratory failure requiring mechanical ventilation, since extubated Acute COPD exacerbation Elevated troponins, not suggestive of acute coronary syndrome History of atrial flutter with ablation in July 2021 Venous stasis ulcers, positive for gram-negative bacilli PLAN: Continue current cardiac medications Patient is currently stable for discharge to [facility] today from a cardiac standpoint Patient to follow up outpatient with his primary optics engineer Nurse practitioner note has been reviewed by physician. Signing provider agrees with the documented findings, assessment, and plan of care. Objective - Vital Signs Vital signs: Vital Signs Temp 98.4 F 04/18/22 08:00 Pulse 95 04/18/22 08:00 Resp 20 04/18/22 08:00 BP 112/76 04/18/22 08:00 Pulse Ox 92 L 04/18/22 08:00 FiO2 40 04/18/22 00:28 Intake & Output 04/17/22 04/18/22 04/18/22 18:59 06:59 18:59 Intake Total 1100 120 Output Total 2920 950 Balance -1820 -830 Intake: IV 30 Invasive Line 9 30 Oral 1070 120 Output: Urine 2920 950 Other: Voiding Method Indwelling Catheter Indwelling Catheter # Voids 1 # Bowel Movements 1 ABP, PAP, CO, CI - Last Documented Arterial Blood Pressure 137/84 - Labs CBC & Chem 7: 04/17/22 18:47 04/15/22 07:02 Labs: Abnormal Lab Results - Last 24 Hours (Table) 04/17/22 04/17/22 04/17/22 Range/Units 11:40 16:47 18:47 WBC 16.7 H (3.8-10.6) k/uL Plt Count 114 L (150-450) k/uL ABG pCO2 (35-45) mmHg ABG HCO3 (21-25) mmol/L ABG Total CO2 (19-24) mmol/L ABG O2 Saturation (94-97) % POC Glucose (mg/dL) 146 H 184 H (70-110) mg/dL 04/17/22 04/17/22 Range/Units 19:27 20:14 WBC (3.8-10.6) k/uL Plt Count (150-450) k/uL ABG pCO2 61 H (35-45) mmHg ABG HCO3 40 H* (21-25) mmol/L ABG Total CO2 42 H (19-24) mmol/L ABG O2 Saturation 97.1 H (94-97) % POC Glucose (mg/dL) 145 H (70-110) mg/dL
[2022-04-18 11:51] LABS: Glucose,Whole Blood 124 mg/dL (70-110)
[2022-04-18] MEDS: predniSONE 20 MG TAB PO SCH (14:51)
[2022-04-18] MEDS: buPROPion 75 MG TAB PO SCH (14:52)
[2022-04-18] MEDS: FAMOTIDINE 20 MG TAB PO SCH ×2 (14:52→20:54)
[2022-04-18] MEDS: DILTIAZEM CD 180 MG CAP.ER.24H PO SCH (14:52)
[2022-04-18] MEDS: FUROSEMIDE 40 MG TAB PO SCH ×2 (14:52→16:56)
[2022-04-18] MEDS: metOLazone 5 MG TAB PO SCH (14:52)
[2022-04-18] MEDS: METOPROLOL TARTRATE 50 MG TAB PO SCH ×3 (14:53→20:54)
[2022-04-18] MEDS: APIXABAN 5 MG TAB PO SCH ×2 (14:53→20:53)
[2022-04-18 16:50] LABS: Glucose,Whole Blood 124 mg/dL (70-110)
[2022-04-18 19:39] LABS: Glucose,Whole Blood 194 mg/dL (70-110)
--- NOTE | 2022-04-18 20:15 | P.PN ---
Subjective This is a 56-year-old male who is being monitored in the intensive care unit secondary to acute hypoxic respiratory failure as well as acute CHF exa cerbation. Patient found to be in atrial fibrillation with rapid ventricular rate post intubation. The patient is currently intubated with FiO2 50%, current oxygen saturations 89%. Cardizem gtt weaned yesterday, he is on oral cardizem. Chest x-ray this morning showing pulmonary vascular congestion and bilateral pleural effusions correlate for congestive heart failure. Sodium stable at 137, creatinine is trending down at 1.68, peaked yesterday at 1.74. Infectious disease has been consulted for wound cultures positive for presumptive MRSA and gram negative bacilli to the left leg and is currently maintained on IV cefepime and IV vancomycin pending finalized cultures. He continues on IV Lasix every 12, IV steroids 60 every 6 hours. 04/10/2022 Patient continues to be monitored in intensive care unit, on mechanical ventilator with FiO2 of 50%. Remains tachycardic in the 110-120s. He also had temperature of 100 this morning. Chest xray today showing congestive heart failure with likely associated effusions. Pneumonia not excluded. Patient started on lasix gtt yesterday afternoon, he has total of 3.8 L off in the last 24 hours, He is down 5 kg since yesterday, overall his weight is up since admission. Creatinine has improved today 1.59. Cultures are being repeated with concern of fever. He is being followed closely by pulmonary, cardiology, infectious disease. 04/11/2022 Patient is monitored closely in intensive care unit, he is currently intubated on mechanical ventilator with FiO2 of 50%. He has been maintained on lasix gtt currently at 5 with urine output of 8.7 L in the last 24 hours. He continues to be sedated with propofol. Wound culture has finalized to gram negative bacilli/MRSA/enterococcus and patient is being followed by infectious disease on IV cefepime. Blood cultures were taken yesterday and are showing gram positive cocci in clusters, IV vancomycin has been started today, and repeat blood cultures taken. Follow up chest xray today showing pulmonary vascular congestion with moderate effusions/atelectasis vs. consolidation. He is receiving enteral tube feedings with vital AF and blood sugars have been elevated in the 180s to 200s. For this novolog was increased to 2 units with scale every 6 hours and also levemir HS has been added for better glycemic control. Procalcitonin follow up 0.09. Creatinine is slightly increased today at 1.71. Patient remains in atrial fibrillation with elevated heart rate in the 130s, and continues on oral cardizem. T-max over night 100.1, and blood pressure 120/70s. Patient is being followed closely by cardiology, pulmonary product mgmt dev manager, and infectious disease services. 04/12/2022 Patient is evaluated in intensive care unit sitting up in chair. Patient was extubated yesterday around 1330. Currently he is on oxygen support with 6L nasal cannula saturation 93%. He denies chest pain, no shortness of breath. He is tolerating some liquid diet. He continues with negative fluid balance about -3.7 L in the last 24 hours and lasix gtt has been discontinued. IV lasix 40 mg every 12 hours has been started. Repeat chest xray from today showing persistent retrocardiac atelectasis and consolidation. Blood culture showing staph epi possibly a contaminent, repeat is pending. Continues on IV cefepime managed by infectious disease. Patient continues in atrial fibrillation with heart rate in the 140s, cardiology has increased oral cardizem and started patient on metoprolol today. Labs reviewed today showing white count 13.8, BUN 87, creatinine 1.46, blood glucose in the 180s. 04/13/2022 Patient lying in bed still complaining of from dyspnea with little cough and phlegm but no chest pain he still saturating 6 L per minute. remains on cefepime and prednisone 40 mg for his COPD and positive blood culture with staph epidermidis and coagulase-negative staph. While his wound culture is growing MRSA, pseudomonas, entero-cocci, ID team on the case. Also he is on Eliquis 5 mg. Troponin is mildly elevated but patient with no chest pain. Cardiology team on the case Also echocardiogram showed ejection fraction of 50-55% Chest x-ray showing mild CHF with right basal infiltrate. On examination he has decreased breath sounds in bilateral patellar ligament edema 2+ Patient states he is on 3 L of oxygen at home for his COPD and his vehicle controls engineer is Dr. Gregory Cisneros catheter in place with clear yellow urine 04/14/2022 Patient with no significant tachypnea at rest however is still on 67 oxygen liter per minute requirement which is similar to yesterday. He still has bilateral patellar like edema about 2+, there is mild evidence of cellulitis on his been treated with antibiotics with improvement. He confirms he is on 3 L oxygen at home. No other new complaints, his creatinine went up to 1.4 but carbon dioxide improved down to 44. He still have mild leukocytosis while on prednisone 40 mg. Slightly tachycardic. 04/15/2022 Patient is clinically doing well, his dyspnea improving. No chest pain. He is at 4 L/m of oxygen. At baseline he confirms he is a 3 L/m. Pulmonary team signed off. Transmission Maintenance Supervisor team have no further recommendation. Per ID team discontinue IV. Cefepime and keep monitoring. He require subacute rehab. propagation worker consulted Possible discharge in 24-48 hours 04/16/2022 pt is clinically doing well , he is medically stable and is cleared for discharge by all consultants. He is off antibiotics and doing well. His postoperative go to ECF upon discharge However patient looks severely depressed and patient and family requesting psychiatrist to evaluate the patient. We will hold discharge until seen by psychiatrist 04/18/2022 this is a follow-up note to: (please refer to the discharge summary note from yesterday 04/17/2022) Patient is supposed to be discharged yesterday and he was found stable by all consultants including psychiatrist, laboratory director, infectious disease team and vehicle controls engineer. However her discharge was held later on because patient got a gitated and has tried to follow-up his lines and Cisneros catheter. Seroquel 2 could not come and down. Patient was at risk at him on self. CT of the brain could not be done immediately because patient was so agitated. Patient received Haldol and he come down. CT of the brain is negative for acute processes. When I saw the patient in the morning he was sleeping in bed, looks comfortable not in distress, his examination is limited by his sleepiness. Cranial nerves are grossly intact. Pupils are equal and reactive to light. No asymmetry noted. Abdomen looks soft. And used as examination. Patient could not provide information secondary to above. I discussed the case with laboratory director for follow-up. Labs are reviewed. Checked with the nurse at evening time patient is starts waking up . He is, currently. says the patient woke up after the Haldol we are going to place him on the neuro check We will repeat labs in the morning. Based on his condition we will do further recommendation.He is breathing quietly and he looks at his baseline of 4 L/m Objective - Vital Signs Vital signs: Vital Signs Temp 98.5 F 04/18/22 12:00 Pulse 108 H 04/18/22 12:00 Resp 20 04/18/22 12:00 BP 115/73 04/18/22 12:00 Pulse Ox 94 L 04/18/22 12:00 FiO2 40 04/18/22 00:28 Intake & Output 04/17/22 04/18/22 04/18/22 18:59 06:59 18:59 Intake Total 1100 120 Output Total 2920 950 Balance -1820 -830 Intake: IV 30 Invasive Line 9 30 Oral 1070 120 Output: Urine 2920 950 Other: Voiding Method Indwelling Catheter Indwelling Catheter Indwelling Catheter # Voids 1 # Bowel Movements 1 ABP, PAP, CO, CI - Last Documented Arterial Blood Pressure 137/84 - Exam -GENERAL: The patient is sleeping after he got Haldol and Seroquel last night. acute distress. Well developed, well nourished. HEENT: Pupils are round and equally reacting to light. EOMI. No scleral icterus. No conjunctival pallor. Normocephalic, atraumatic. No pharyngeal erythema. No thyromegaly. CARDIOVASCULAR: S1 and S2 present. No murmurs, rubs, or gallops. PULMONARY: Chest is clear to auscultation, no wheezing . Mild basal crepitation ABDOMEN: Soft, nontender, nondistended, normoactive bowel sounds. No palpable organomegaly. MUSCULOSKELETAL: No joint swelling or deformity. EXTREMITIES: No cyanosis, clubbing, or pedal edema. NEUROLOGICAL: Gross neurological examination did not reveal any focal deficits. SKIN: No rashes. no petechiae. - Labs CBC & Chem 7: 04/17/22 18:47 04/15/22 07:02 Labs: Abnormal Lab Results - Last 24 Hours (Table) 04/17/22 04/17/22 04/17/22 Range/Units 16:47 18:47 19:27 WBC 16.7 H (3.8-10.6) k/uL Plt Count 114 L (150-450) k/uL ABG pCO2 61 H (35-45) mmHg ABG HCO3 40 H* (21-25) mmol/L ABG Total CO2 42 H (19-24) mmol/L ABG O2 Saturation 97.1 H (94-97) % POC Glucose (mg/dL) 184 H (70-110) mg/dL 04/17/22 04/18/22 Range/Units 20:14 11:49 WBC (3.8-10.6) k/uL Plt Count (150-450) k/uL ABG pCO2 (35-45) mmHg ABG HCO3 (21-25) mmol/L ABG Total CO2 (19-24) mmol/L ABG O2 Saturation (94-97) % POC Glucose (mg/dL) 145 H 124 H (70-110) mg/dL Assessment and Plan Assessment: Depression, associated with periods of agitation, improved with holdol. Patient started improving. Acute hypoxic respiratory failure secondary to acute diastolic CHF exacerbation and acute COPD exacerbation, extubated on 04/12/22, currently on 6L hi flow cannula. Atrial fibrillation rate with rapid ventricular rate on oral cardizem. And Eliquis Left lower extremity ulceration and possible cellulitis with culture showing presumptive MRSA/gram neg bacili Gram Positive bacteremia Hypertension Obstructive sleep apnea History of COPD, oxygen dependent History atrial flutter previous ablation Chronic lower extremity edema Former Smoker GI Prophylaxis Protonix DVT Prophylaxis Eliquis Full Code Plan: Patient is monitored closely in ICU, has been extubated on 04/12/22 Continue ANTIBIOTIC per ID team. Currently is not on antibiotics. Patient cleared by discharge by all consultants including pulmonary, cardiology psychiatry and infectious disease team Patient is sleeping currently after several sedatives therefore we will keep close eye on him Continue with neuro check Will benefit from ECF rehab upon discharge Monitor blood glucose DVT prophylaxis: Eliquis GI prophylaxis Pepcid Prognosis is guarded
[2022-04-18] MEDS: DILTIAZEM CD 120 MG CAP.ER.24H PO SCH (20:54)
[2022-04-18] MEDS: INSULIN DETEMIR (LEVEMIR) 100 UNIT/ML SYR SQ SCH (20:54)
[2022-04-18] MEDS: HYDROmorphone 1 MG/ML 1 ML SYRINGE IVP PRN (20:55)
[2022-04-19 06:11] LABS: Glucose,Whole Blood 106 mg/dL (70-110)
[2022-04-19] MEDS: INSULIN ASPART (NovoLOG) 100 UNIT/ML VIAL SQ SCH ×8 (06:16→21:13)
--- NOTE | 2022-04-19 08:44 | P.PN ---
Subjective Progress Note Date: 04/17/22 Principal diagnosis: Positive cultures left leg and possible cellulitis Patient is a 56-year-old male with a past medical history significant for COPD presenting to the hospital 4 days ago for evaluation of difficulty in breathing patient symptom has been going on for a couple of weeks before presentation to the hospital and the patient did have difficulty maintaining his O2 sats patient is not getting intubated also noticed to have swelling to the lower simply with some erythema and superficial ulceration culture was showing presented to MRSA and gram-negative the patient was extubated afternoon of 04/11/2022 on today's evaluation that is 04/17/2022, the patient continues to be afebrile, the patient is breathing comfortably on nasal cannula oxygen. The patient denies chest pain, the patient cough has decreased density and mostly dry in nature, the patient denies abdominal pain or diarrhea, the patient denies pain to lower extremity Objective - Vital Signs Vital signs: Vital Signs Temp 98.0 F 04/17/22 12:24 Pulse 91 04/17/22 12:24 Resp 16 04/17/22 12:24 BP 151/85 04/17/22 12:24 Pulse Ox 95 04/17/22 12:24 FiO2 40 04/16/22 23:44 Intake & Output 04/16/22 04/17/22 04/17/22 18:59 06:59 18:59 Intake Total 846 256 10 Output Total 2400 1600 1500 Balance -0784 -1391 -1490 Intake: IV 40 20 10 Invasive Line 9 40 20 10 Oral 806 236 Output: Urine 2400 1600 1500 Uretheral (Cisneros) 1200 Other: Voiding Method Indwelling Catheter Indwelling Catheter Indwelling Catheter # Bowel Movements 1 ABP, PAP, CO, CI - Last Documented Arterial Blood Pressure 137/84 - Exam GENERAL DESCRIPTION: Middle-age male up in the chair RESPIRATORY SYSTEM: Unlabored breathing , decreased breath sounds at bases HEART: S1 S2 regular rate and rhythm , ABDOMEN: Soft , no tenderness EXTREMITIES: Diffuse swelling to bilateral lower extremity minimal erythema - Labs CBC & Chem 7: 04/17/22 18:47 04/15/22 07:02 Labs: Abnormal Lab Results - Last 24 Hours (Table) 04/16/22 04/16/22 04/17/22 Range/Units 16:51 20:15 06:29 POC Glucose (mg/dL) 299 H 197 H 116 H (70-110) mg/dL 04/17/22 Range/Units 11:40 POC Glucose (mg/dL) 146 H (70-110) mg/dL Assessment and Plan (1) Cellulitis Current Visit: Yes Status: Acute Code(s): L03.90 - CELLULITIS, UNSPECIFIED SNOMED Code(s): 355045800 Plan: 1patient presented to hospital with acute respiratory failure currently on the ventilator likely multifactorial in this patient with underlying COPD and not concerning for increased swelling to bilateral lower extremity and some superficial ulceration and redness concerning for possible cellulitis with local culture not showing gram-negative and present to MRSA. 2positive blood culture with gram-positive cocci finalized for staph epi likely contamination, vancomycin has been discontinued 3-patient did have improvement in bilateral lower extremity swelling and redness currently and the patient inflammatory markers have normalized , patient has received adequate antibiotic therapy and we will continue to monitor the patient closely off antibiotics Time with Patient: Less than 30
--- NOTE | 2022-04-19 08:45 | P.PN ---
Subjective Progress Note Date: 04/18/22 Principal diagnosis: Positive cultures left leg and possible cellulitis Patient is a 56-year-old male with a past medical history significant for COPD presenting to the hospital 4 days ago for evaluation of difficulty in breathing patient symptom has been going on for a couple of weeks before presentation to the hospital and the patient did have difficulty maintaining his O2 sats patient is not getting intubated also noticed to have swelling to the lower simply with some erythema and superficial ulceration culture was showing presented to MRSA and gram-negative the patient was extubated afternoon of 04/11/2022 on today's evaluation that is 04/18/2022, the patient denies any fever or any chills the patient is breathing comfortably on nasal cannula oxygen. The patient denies chest pain he did have occasional dry cough no abdominal pain no diarrhea Objective - Vital Signs Vital signs: Vital Signs Temp 98.6 F 04/18/22 19:29 Pulse 93 04/18/22 19:29 Resp 18 04/18/22 19:29 BP 112/75 04/18/22 19:29 Pulse Ox 95 04/18/22 15:49 FiO2 40 04/18/22 00:28 Intake & Output 04/18/22 04/18/22 04/19/22 06:59 18:59 06:59 Intake Total 120 Output Total 950 900 Balance -830 -900 Intake: Oral 120 Output: Urine 950 900 Other: Voiding Method Indwelling Catheter Indwelling Catheter Indwelling Catheter ABP, PAP, CO, CI - Last Documented Arterial Blood Pressure 137/84 - Exam GENERAL DESCRIPTION: Middle-age male up in the chair RESPIRATORY SYSTEM: Unlabored breathing , decreased breath sounds at bases HEART: S1 S2 regular rate and rhythm , ABDOMEN: Soft , no tenderness EXTREMITIES: Diffuse swelling to bilateral lower extremity no wound or drainage - Labs CBC & Chem 7: 04/17/22 18:47 04/15/22 07:02 Labs: Abnormal Lab Results - Last 24 Hours (Table) 04/18/22 04/18/22 04/18/22 Range/Units 11:49 16:48 19:38 POC Glucose (mg/dL) 124 H 124 H 194 H (70-110) mg/dL Assessment and Plan (1) Cellulitis Current Visit: Yes Status: Acute Code(s): L03.90 - CELLULITIS, UNSPECIFIED SNOMED Code(s): 946739180 Plan: 1patient presented to hospital with acute respiratory failure currently on the ventilator likely multifactorial in this patient with underlying COPD and not concerning for increased swelling to bilateral lower extremity and some superficial ulceration and redness concerning for possible cellulitis with local culture not showing gram-negative and present to MRSA. 2positive blood culture with gram-positive cocci finalized for staph epi likely contamination, vancomycin has been discontinued 3-patient did have improvement in bilateral lower extremity swelling and redness currently and the patient inflammatory markers have normalized , patient has received adequate antibiotic therapy and we will continue to monitor the patient closely off antibiotics 4the patient did have a elevated white count possibly reactive to steroids will follow up on repeat blood work Time with Patient: Less than 30
[2022-04-19 08:48] LABS: Basophils % (A) 0 %; Eosinophils # (A) 0.1 k/uL (0-0.7); Eosinophils % (A) 1 %; HCT 54.2 % (39.0-53.0); HGB 17.1 gm/dL (13.0-17.5); Hypochromasia Moderate; Lymphocytes # (A) 0.9 k/uL (1.0-4.8); Lymphocytes % (A) 5 %; MCH 27.9 pg (25.0-35.0); MCHC 31.5 g/dL (31.0-37.0); MCV 88.7 fL (80.0-100.0); Mean Platelet Volume 10.4; Monocytes # (A) 0.9 k/uL (0-1.0); Monocytes % (A) 5 %; Neutrophils # (A) 17.6 k/uL (1.3-7.7); Neutrophils % (A) 89 %; Platelet Count 109 k/uL (150-450); RBC 6.11 m/uL (4.30-5.90); RDW 14.2 % (11.5-15.5); WBC 19.7 k/uL (3.8-10.6)
[2022-04-19 08:56] LABS: Albumin 4.2 g/dL (3.5-5.0); Bilirubin, Delta 0.4 mg/dL (0.0-0.2); Bilirubin,Unconjugated 0.5 mg/dL (0.0-1.1); Calcium 8.7 mg/dL (8.4-10.2); Magnesium 1.9 mg/dL (1.6-2.3); Potassium 3.8 mmol/L (3.5-5.1); Total Bilirubin 0.9 mg/dL (0.2-1.3); Total Protein 6.9 g/dL (6.3-8.2)
[2022-04-19] MEDS: APIXABAN 5 MG TAB PO SCH ×2 (09:06→21:12)
[2022-04-19] MEDS: predniSONE 20 MG TAB PO SCH (09:06)
[2022-04-19] MEDS: FUROSEMIDE 40 MG TAB PO SCH ×2 (09:06→18:24)
[2022-04-19] MEDS: FAMOTIDINE 20 MG TAB PO SCH ×2 (09:07→21:12)
[2022-04-19] MEDS: metOLazone 5 MG TAB PO SCH (09:07)
[2022-04-19] MEDS: buPROPion 75 MG TAB PO SCH (09:07)
[2022-04-19] MEDS: METOPROLOL TARTRATE 50 MG TAB PO SCH ×3 (09:07→21:12)
[2022-04-19] MEDS: DILTIAZEM CD 180 MG CAP.ER.24H PO SCH (09:07)
[2022-04-19] MEDS: HYDROmorphone 1 MG/ML 1 ML SYRINGE IVP PRN (09:12)
--- NOTE | 2022-04-19 10:40 | P.PN ---
Subjective Progress Note Date: 04/19/22 HISTORY OF PRESENT ILLNESS: This is a 57 year old male who follows with a radiologic technology teacher out of [facility]. Patient is admitted to the hospital secondary to COPD, respiratory failure, CHF, and afib with RVR. Patient examined this morning. He is sitting up in the chair. Denies chest pain or pressure. Denies SOB. Telemetry reveals atrial fibrillation with heart rate around 110. 04/17/2022 Patient examined this morning at the bedside. Patient denies chest pain or pressure. Denies SOB. Telemetry reveals atrial fibrillation with heart rate around 110. 04/18/2022 Patient examined this morning at the bedside. Patient received Haldol and is sleeping. He appears comfortable. Telemetry reveals atrial fibrillation with controlled ventricular rates. 04/18/2022 Patient examined this morning at the bedside. Patient is resting comfortably. He denies chest pain or pressure. Telemetry reveals atrial fibrillation with controlled ventricular rates. Blood pressure is stable. PHYSICAL EXAM: VITAL SIGNS: Reviewed. GENERAL: Well-developed in no acute distress. NECK: Supple. No JVD or thyromegaly LUNGS: Respirations even and unlabored. Lungs essentially clear to auscultation bilaterally. HEART: Irregular rate and rhythm. S1 and S2 heard. EXTREMITIES: Normal range of motion. No clubbing or cyanosis. Peripheral pulses intact. No lower extremity edema ASSESSMENT: Persistent atrial fibrillation with RVR Acute on chronic heart failure with preserved ejection fraction, currently euvolemic Acute hypoxic respiratory failure requiring mechanical ventilation, since extubated Acute COPD exacerbation Elevated troponins, not suggestive of acute coronary syndrome History of atrial flutter with ablation in July 2021 Venous stasis ulcers, positive for gram-negative bacilli PLAN: Continue current cardiac medications Patient is currently stable for discharge to [facility] today from a cardiac standpoint Patient to follow up outpatient with his primary radiologic technology teacher We will sign off. Please reconsult if needed. Nurse practitioner note has been reviewed by physician. Signing provider agrees with the documented findings, assessment, and plan of care. Objective - Vital Signs Vital signs: Vital Signs Temp 98.2 F 04/19/22 03:49 Pulse 82 04/19/22 03:49 Resp 16 04/19/22 03:49 BP 121/60 04/19/22 03:49 Pulse Ox 97 04/19/22 03:49 FiO2 40 10/19/22 00:28 Intake & Output 04/18/22 04/19/22 04/19/22 18:59 06:59 18:59 Intake Total 240 Output Total 898 670 2909 Balance -900 400 -860 Intake: Oral 240 Output: Urine 796 246 1358 Other: Voiding Method Indwelling Catheter Indwelling Catheter ABP, PAP, CO, CI - Last Documented Arterial Blood Pressure 137/84 - Labs CBC & Chem 7: 04/19/22 07:50 04/19/22 07:50 Labs: Abnormal Lab Results - Last 24 Hours (Table) 04/18/22 04/18/22 04/18/22 Range/Units 11:49 16:48 19:38 WBC (3.8-10.6) k/uL RBC (4.30-5.90) m/uL Hct (39.0-53.0) % Plt Count (150-450) k/uL Neutrophils # (1.3-7.7) k/uL Lymphocytes # (1.0-4.8) k/uL Chloride (98-107) mmol/L Carbon Dioxide (22-30) mmol/L BUN (9-20) mg/dL Glucose (74-99) mg/dL POC Glucose (mg/dL) 124 H 124 H 194 H (70-110) mg/dL Delta Bilirubin (0.0-0.2) mg/dL ALT (4-49) U/L 04/19/22 04/19/22 Range/Units 07:50 07:50 WBC 19.7 H (3.8-10.6) k/uL RBC 6.11 H (4.30-5.90) m/uL Hct 54.2 H (39.0-53.0) % Plt Count 109 L (150-450) k/uL Neutrophils # 17.6 H (1.3-7.7) k/uL Lymphocytes # 0.9 L (1.0-4.8) k/uL Chloride 90 L (98-107) mmol/L Carbon Dioxide 37 H (22-30) mmol/L BUN 44 H (9-20) mg/dL Glucose 101 H (74-99) mg/dL POC Glucose (mg/dL) (70-110) mg/dL Delta Bilirubin 0.4 H (0.0-0.2) mg/dL ALT 77 H (4-49) U/L
[2022-04-19 11:59] LABS: Glucose,Whole Blood 170 mg/dL (70-110)
[2022-04-19 13:39] VITALS: BMI 35.7
[2022-04-19] MEDS ORDERED: OLANZapine 10 MG VIAL IM PRN (14:07)
--- NOTE | 2022-04-19 14:23 | P.PN ---
Progress Note - Text Progress Note Date: 04/19/22 Interval History: Patient was seen sitting upright in his bed eating lunch and was directable and agreeable to speak with remote mortgage underwriter in his room. Present next to the patient is his good friend Veronica Angel. The patient is agreeable to having his friend present during the psychiatric interview. Currently, the patient is alert and oriented in all spheres. He is currently denying any suicidal or homicidal ideation, intention, and/or plan. He is not reporting any auditory or visual hallucinations. He is denying any paranoia or other delusions. The patient reports that overall he is feeling better. The patient's friend also acknowledges that the patient has been displaying a significant improvement in regards to his mood and mentation. They're both in agreement to discontinue Wellbutrin in order to offer Zoloft instead as it was explained to them that Wellbutrin has a emergent action which may contribute to worsening psychotic symptoms. After discussing the risks, benefits, treatment alternatives, the patient and his friend were agreeable to starting Zoloft instead. Mental Status Exam: General Appearance: Patient appears to be stated age is alert, directable, and cooperative. Obese body habitus. Wearing glasses. Behavior: Patient is calmly seated without any agitated behavior. Eye contact is appropriate. Speech: Patient's speech is fluent and nonpressured. Monotone however spontaneous. Mood/Affect: Mood is improving mildly, affect is congruent and constricted. Suicidality/Homicidality: Patient denies having any suicidal or homicidal ideation intent or plan. Perceptions: Patient denies any visual hallucinations and denies any auditory hallucinations Though content/process: There is no evidence of any delusional thought content and thought process is linear and goal-directed. Memory and concentration: AOX3, grossly intact for the purposes of this session Judgment and insight: Improving mildly Vital Signs Temp 98.0 F 04/19/22 08:00 Pulse 75 04/19/22 08:00 Resp 18 04/19/22 08:00 BP 128/75 04/19/22 08:00 Pulse Ox 96 04/19/22 08:00 FiO2 40 04/18/22 00:28 Intake & Output 04/18/22 04/19/22 04/19/22 18:59 06:59 18:59 Intake Total 240 Output Total 609 658 6404 Balance -900 -400 -860 Weight 119.5 kg Intake: Oral 240 Output: Urine 119 488 6671 Other: Voiding Method Indwelling Catheter Indwelling Catheter Indwelling Catheter ABP, PAP, CO, CI - Last Documented Arterial Blood Pressure 137/84 Laboratory Results - Last 24 Hours 04/18/22 04/18/22 04/19/22 16:48 19:38 06:09 WBC RBC Hgb Hct MCV MCH MCHC RDW Plt Count MPV Neutrophils % Lymphocytes % Monocytes % Eosinophils % Basophils % Neutrophils # Lymphocytes # Monocytes # Eosinophils # Basophils # Hypochromasia Sodium Potassium Chloride Carbon Dioxide Anion Gap BUN Creatinine Est GFR (CKD-EPI)AfAm Est GFR (CKD-EPI)NonAf Glucose POC Glucose (mg/dL) 124 H 194 H 106 POC Glu Clock And Watch Hands Mounter ID McGuffin, Zee Du, Jodi Du, Jodi Calcium Magnesium Total Bilirubin Conjugated Bilirubin Unconjugated Bilirubin Delta Bilirubin AST ALT Alkaline Phosphatase Total Protein Albumin 04/19/22 04/19/22 04/19/22 07:50 07:50 11:57 WBC 19.7 H RBC 6.11 H Hgb 17.1 Hct 54.2 H MCV 88.7 MCH 27.9 MCHC 31.5 RDW 14.2 Plt Count 109 L MPV 10.4 Neutrophils % 89 Lymphocytes % 5 Monocytes % 5 Eosinophils % 1 Basophils % 0 Neutrophils # 17.6 H Lymphocytes # 0.9 L Monocytes # 0.9 Eosinophils # 0.1 Basophils # 0.0 Hypochromasia Moderate Sodium 138 Potassium 3.8 Chloride 90 L Carbon Dioxide 37 H Anion Gap 11 BUN 44 H Creatinine 1.21 Est GFR (CKD-EPI)AfAm 76 Est GFR (CKD-EPI)NonAf 65 Glucose 101 H POC Glucose (mg/dL) 170 H POC Glu Clock And Watch Hands Mounter ID Virgen Anton Calcium 8.7 Magnesium 1.9 Total Bilirubin 0.9 Conjugated Bilirubin 0.0 Unconjugated Bilirubin 0.5 Delta Bilirubin 0.4 H AST 40 ALT 77 H Alkaline Phosphatase 101 Total Protein 6.9 Albumin 4.2 Assessment Major depressive disorder, likely exacerbated by ongoing medical issues including hypoxia, sleep apnea, and prolonged hospitalization Delirium Plan: -At this time patient DOES NOT meet criteria for inpatient psychiatric admission. Patient reports no prior attempts at suicide and is not endorsing any suicidal or homicidal ideation, intention, and/or plan. -Delirium precautions recommended with patient including - avoiding use of narcotics and [employer] sedatives, limit anticholinergic medications when possible, frequent re-orientation, minimize use of restraints, open window shades during the day and close them at night -Would recommend the following medication changes/additions: We'll discontinue Wellbutrin. Start Zoloft 50 mg by mouth at bedtime for depr ession/anxiety. Start melatonin 5 mg by mouth at bedtime for insomnia/circadian rhythm regulation We will order Zyprexa IM when necessary for agitation/delirium. Recommend conservative use of this medication. -Sleep apnea and hypoxia should be managed as these may mimic and exacerbate depression. -Continue your medical management. -Patient is cleared psychiatrically for discharge with recommendation for outpatient follow-up. Psychiatry will sign off at this point, please contact with any questions.
--- NOTE | 2022-04-19 16:33 | P.PN ---
Subjective This is a 56-year-old male who is being monitored in the intensive care unit secondary to acute hypoxic respiratory failure as well as acute CHF exa cerbation. Patient found to be in atrial fibrillation with rapid ventricular rate post intubation. The patient is currently intubated with FiO2 50%, current oxygen saturations 89%. Cardizem gtt weaned yesterday, he is on oral cardizem. Chest x-ray this morning showing pulmonary vascular congestion and bilateral pleural effusions correlate for congestive heart failure. Sodium stable at 137, creatinine is trending down at 1.68, peaked yesterday at 1.74. Infectious disease has been consulted for wound cultures positive for presumptive MRSA and gram negative bacilli to the left leg and is currently maintained on IV cefepime and IV vancomycin pending finalized cultures. He continues on IV Lasix every 12, IV steroids 60 every 6 hours. 04/10/2022 Patient continues to be monitored in intensive care unit, on mechanical ventilator with FiO2 of 50%. Remains tachycardic in the 110-120s. He also had temperature of 100 this morning. Chest xray today showing congestive heart failure with likely associated effusions. Pneumonia not excluded. Patient started on lasix gtt yesterday afternoon, he has total of 3.8 L off in the last 24 hours, He is down 5 kg since yesterday, overall his weight is up since admission. Creatinine has improved today 1.59. Cultures are being repeated with concern of fever. He is being followed closely by pulmonary, cardiology, infectious disease. 04/11/2022 Patient is monitored closely in intensive care unit, he is currently intubated on mechanical ventilator with FiO2 of 50%. He has been maintained on lasix gtt currently at 5 with urine output of 8.7 L in the last 24 hours. He continues to be sedated with propofol. Wound culture has finalized to gram negative bacilli/MRSA/enterococcus and patient is being followed by infectious disease on IV cefepime. Blood cultures were taken yesterday and are showing gram positive cocci in clusters, IV vancomycin has been started today, and repeat blood cultures taken. Follow up chest xray today showing pulmonary vascular congestion with moderate effusions/atelectasis vs. consolidation. He is receiving enteral tube feedings with vital AF and blood sugars have been elevated in the 180s to 200s. For this novolog was increased to 2 units with scale every 6 hours and also levemir HS has been added for better glycemic control. Procalcitonin follow up 0.09. Creatinine is slightly increased today at 1.71. Patient remains in atrial fibrillation with elevated heart rate in the 130s, and continues on oral cardizem. T-max over night 100.1, and blood pressure 120/70s. Patient is being followed closely by cardiology, pulmonary tallow refiner, and infectious disease services. 04/12/2022 Patient is evaluated in intensive care unit sitting up in chair. Patient was extubated yesterday around 1330. Currently he is on oxygen support with 6L nasal cannula saturation 93%. He denies chest pain, no shortness of breath. He is tolerating some liquid diet. He continues with negative fluid balance about -3.7 L in the last 24 hours and lasix gtt has been discontinued. IV lasix 40 mg every 12 hours has been started. Repeat chest xray from today showing persistent retrocardiac atelectasis and consolidation. Blood culture showing staph epi possibly a contaminent, repeat is pending. Continues on IV cefepime managed by infectious disease. Patient continues in atrial fibrillation with heart rate in the 140s, cardiology has increased oral cardizem and started patient on metoprolol today. Labs reviewed today showing white count 13.8, BUN 87, creatinine 1.46, blood glucose in the 180s. 04/13/2022 Patient lying in bed still complaining of from dyspnea with little cough and phlegm but no chest pain he still saturating 6 L per minute. remains on cefepime and prednisone 40 mg for his COPD and positive blood culture with staph epidermidis and coagulase-negative staph. While his wound culture is growing MRSA, pseudomonas, entero-cocci, ID team on the case. Also he is on Eliquis 5 mg. Troponin is mildly elevated but patient with no chest pain. Cardiology team on the case Also echocardiogram showed ejection fraction of 50-55% Chest x-ray showing mild CHF with right basal infiltrate. On examination he has decreased breath sounds in bilateral patellar ligament edema 2+ Patient states he is on 3 L of oxygen at home for his COPD and his cloth bolt bander is Dr. Gregory Cisneros catheter in place with clear yellow urine 04/14/2022 Patient with no significant tachypnea at rest however is still on 67 oxygen liter per minute requirement which is similar to yesterday. He still has bilateral patellar like edema about 2+, there is mild evidence of cellulitis on his been treated with antibiotics with improvement. He confirms he is on 3 L oxygen at home. No other new complaints, his creatinine went up to 1.4 but carbon dioxide improved down to 44. He still have mild leukocytosis while on prednisone 40 mg. Slightly tachycardic. 04/15/2022 Patient is clinically doing well, his dyspnea improving. No chest pain. He is at 4 L/m of oxygen. At baseline he confirms he is a 3 L/m. Pulmonary team signed off. Plaster Mixer team have no further recommendation. Per ID team discontinue IV. Cefepime and keep monitoring. He require subacute rehab. glassworker consulted Possible discharge in 24-48 hours 04/16/2022 pt is clinically doing well , he is medically stable and is cleared for discharge by all consultants. He is off antibiotics and doing well. His postoperative go to ECF upon discharge However patient looks severely depressed and patient and family requesting psychiatrist to evaluate the patient. We will hold discharge until seen by psychiatrist 04/18/2022 this is a follow-up note to: (please refer to the discharge summary note from yesterday 04/17/2022) Patient is supposed to be discharged yesterday and he was found stable by all consultants including psychiatrist, mechanical development engineer, infectious disease team and cloth bolt bander. However her discharge was held later on because patient got a gitated and has tried to follow-up his lines and Cisneros catheter. Seroquel 2 could not come and down. Patient was at risk at him on self. CT of the brain could not be done immediately because patient was so agitated. Patient received Haldol and he come down. CT of the brain is negative for acute processes. When I saw the patient in the morning he was sleeping in bed, looks comfortable not in distress, his examination is limited by his sleepiness. Cranial nerves are grossly intact. Pupils are equal and reactive to light. No asymmetry noted. Abdomen looks soft. And used as examination. Patient could not provide information secondary to above. I discussed the case with mechanical development engineer for follow-up. Labs are reviewed. Checked with the nurse at evening time patient is starts waking up . He is, currently. says the patient woke up after the Haldol we are going to place him on the neuro check We will repeat labs in the morning. Based on his condition we will do further recommendation.He is breathing quietly and he looks at his baseline of 4 L/m 04/19/2022 Patient today is more awake although lethargic, [facility]. However he is disoriented to time, person and he has no insight into his illness. He follows commands and looks calm. He denies any specific cause. His breathing is quiet and abdomen soft and no urinary complaints. His legs erythema is chronic and stable. No signs of cellulitis. Remains on Eliquis, prednisone is lowered to 30 mg as steroids can cause psychosis as well. Also patient has been using Dilaudid IV which also may contribute to confusion was stopped intravenous Dilaudid and started on [place] 5-325 when necessary. From pain medication also can cause confusion Discussed the case with psychiatry today, Zoloft and melatonin added and Zyprexa when necessary. Neurology team were consulted Objective - Vital Signs Vital signs: Vital Signs Temp 98.0 F 04/19/22 08:00 Pulse 75 04/19/22 08:00 Resp 18 04/19/22 08:00 BP 128/75 04/19/22 08:00 Pulse Ox 96 04/19/22 08:00 FiO2 40 04/18/22 00:28 Intake & Output 04/18/22 04/19/22 04/19/22 18:59 06:59 18:59 Intake Total 240 Output Total 535 768 0118 Balance -900 -400 -860 Intake: Oral 240 Output: Urine 471 480 9401 Other: Voiding Method Indwelling Catheter Indwelling Catheter Indwelling Catheter ABP, PAP, CO, CI - Last Documented Arterial Blood Pressure 137/84 - Exam -GENERAL: The patient is sleeping after he got Haldol and Seroquel last night. acute distress. Well developed, well nourished. HEENT: Pupils are round and equally reacting to light. EOMI. No scleral icterus. No conjunctival pallor. Normocephalic, atraumatic. No pharyngeal erythema. No thyromegaly. CARDIOVASCULAR: S1 and S2 present. No murmurs, rubs, or gallops. PULMONARY: Chest is clear to auscultation, no wheezing . Mild basal crepitation ABDOMEN: Soft, nontender, nondistended, normoactive bowel sounds. No palpable organomegaly. MUSCULOSKELETAL: No joint swelling or deformity. EXTREMITIES: No cyanosis, clubbing, or pedal edema. NEUROLOGICAL: Gross neurological examination did not reveal any focal deficits. SKIN: No rashes. no petechiae. - Labs CBC & Chem 7: 04/19/22 07:50 04/19/22 07:50 Labs: Abnormal Lab Results - Last 24 Hours (Table) 04/18/22 04/18/22 04/19/22 Range/Units 16:48 19:38 07:50 WBC 19.7 H (3.8-10.6) k/uL RBC 6.11 H (4.30-5.90) m/uL Hct 54.2 H (39.0-53.0) % Plt Count 109 L (150-450) k/uL Neutrophils # 17.6 H (1.3-7.7) k/uL Lymphocytes # 0.9 L (1.0-4.8) k/uL Chloride (98-107) mmol/L Carbon Dioxide (22-30) mmol/L BUN (9-20) mg/dL Glucose (74-99) mg/dL POC Glucose (mg/dL) 124 H 194 H (70-110) mg/dL Delta Bilirubin (0.0-0.2) mg/dL ALT (4-49) U/L 04/19/22 04/19/22 Range/Units 07:50 11:57 WBC (3.8-10.6) k/uL RBC (4.30-5.90) m/uL Hct (39.0-53.0) % Plt Count (150-450) k/uL Neutrophils # (1.3-7.7) k/uL Lymphocytes # (1.0-4.8) k/uL Chloride 90 L (98-107) mmol/L Carbon Dioxide 37 H (22-30) mmol/L BUN 44 H (9-20) mg/dL Glucose 101 H (74-99) mg/dL POC Glucose (mg/dL) 170 H (70-110) mg/dL Delta Bilirubin 0.4 H (0.0-0.2) mg/dL ALT 77 H (4-49) U/L Assessment and Plan Assessment: AMS, mostly metabolic/toxic encephalopathy. Hysteroscopy contributing as well as pain medication. Rule out neurological causes Depression, associated with periods of agitation, improved with holdol. Patient started improving. Acute hypoxic respiratory failure secondary to acute diastolic CHF exacerbation and acute COPD exacerbation, extubated on 04/12/22, currently on 6L hi flow cannula. Atrial fibrillation rate with rapid ventricular rate on oral cardizem. And Eliquis Left lower extremity ulceration and possible cellulitis with culture showing presumptive MRSA/gram neg bacili Gram Positive bacteremia Hypertension Obstructive sleep apnea History of COPD, oxygen dependent History atrial flutter previous ablation Chronic lower extremity edema Former Smoker GI Prophylaxis Protonix DVT Prophylaxis Eliquis Full Code Plan: Patient is monitored closely in ICU, has been extubated on 04/12/22 Continue ANTIBIOTIC per ID team. Currently is not on antibiotics. Patient cleared by discharge by all consultants including pulmonary, cardiology psychiatry and infectious disease team Continue with prednisone at a lower dose 30 mg DC Dilaudid. Add [place] Will benefit from ECF rehab upon discharge Monitor blood glucose DVT prophylaxis: Eliquis GI prophylaxis Pepcid Prognosis is guarded
[2022-04-19 16:36] LABS: Glucose,Whole Blood 307 mg/dL (70-110)
[2022-04-19] MEDS: HYDROcodone/APAP 5-325MG 1 EACH TAB PO PRN (18:34)
[2022-04-19 20:12] LABS: Glucose,Whole Blood 149 mg/dL (70-110)
[2022-04-19] MEDS: DILTIAZEM CD 120 MG CAP.ER.24H PO SCH (21:12)
[2022-04-19] MEDS: SERTRALINE 50 MG TAB PO SCH (21:12)
[2022-04-19] MEDS: MELATONIN 5 MG TABLET PO SCH (21:12)
[2022-04-19] MEDS: INSULIN DETEMIR (LEVEMIR) 100 UNIT/ML SYR SQ SCH (21:14)
--- NOTE | 2022-04-19 23:08 | P.CNNES ---
History of Present Illness Consult date: 04/19/22 Requesting physician: Nikhil E Sheet Reason for Consult: Confusion History of Present Illness: Patient is a 57-year-old male with history of COPD came to the hospital for evaluation of difficulty in breathing, that has been going on for couple of weeks prior to presentation to the hospital, and difficulty with maintaining oxygen saturations. Patient had swelling of the lower extremities with some erythema and superficial ulceration. Cultures were positive for MRSA. Patient was initially intubated. Patient was extubated on 04/11/2022. Patient was noted to be confused, which prompted this neurology consultation. Patient denies any loss of vision, double vision. He does have numbness of the toes related to peripheral neuropathy. No numbness in the hands. He denies any problems with balance. Patient at present admits to having headache pointing to the bifrontal region, which extends to the top of the head and to the upper part of the occipital region bilaterally. He rates headache 7-8/10. The headache is not new, as he has been having headaches for last 1-1/2 years. He denies any sinus issues. Denies any nausea or vomiting. He is sensitive to noise more than the light. Patient denies any prior history of headaches prior to this one and a half years. Patient's blood test shows WBC 19.7 hemoglobin 17.1, platelets are 109. Electrolytes are normal, BUN 44, creatinine 1.21. AST is 40, with elevated ALT 77. Patient's blood sugar at this time is 307. CT head from 04/18/2022 showed minimal atrophy appropriate for age. No acute process. I personally reviewed CT head, agree with the findings. Visualized paranasal sinuses are clear. There is some haziness of the mastoid air cells. Patient's 2-D echo from 04/06/2022 showed technically very difficult study for interpretation. Normal left-ventricular systolic function with EF 50-55%. Moderate LVH. Severe left atrial dilation. EKG showed atrial fibrillation. Patient currently on Eliquis. Patient has smoked around 1 pack per day for 25-30 years. She decreased her smoking to half pack per day and quit smoking a few months ago. He also quit drinking alcohol over 10 years ago. He was never a heavy drinker. Patient says that he lives by himself, does not have any children. He does have COPD. 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 Review of Systems Constitutional: Denies chills, Denies fever Eyes: denies blurred vision, denies pain Ears, nose, mouth and throat: Reports headache, Denies sore throat Cardiovascular: Reports shortness of breath, Denies chest pain Respiratory: Reports cough Gastrointestinal: Denies abdominal pain, Denies diarrhea, Denies nausea, Denies vomiting Musculoskeletal: Reports low back pain, Denies myalgias Integumentary: Reports color changes, Reports darkening of skin, Reports foot/le g ulcers, Reports rash, Denies pruritus Neurological: Reports as per HPI Psychiatric: Denies anxiety, Denies depression Endocrine: Reports weight change Hematologic/Lymphatic: Reports easy bruising Past Medical History Past Medical History: Atrial Fibrillation, Asthma, Sleep Apnea/CPAP/BIPAP History of Any Multi-Drug Resistant Organisms: MRSA Date of last positivie culture/infection: 04/05/22 MDRO Source:: Left Leg Past Surgical History: Hernia Repair, Joint Replacement, Orthopedic Surgery Additional Past Surgical History / Comment(s): rt hip, rt foot Past Anesthesia/Blood Transfusion Reactions: No Reported Reaction Smoking Status: Former smoker Medications and Allergies Home Medications Medication Instructions Recorded Confirmed Type Apixaban [Eliquis] 5 mg PO BID #60 tab 05/13/21 04/05/22 Rx Melatonin 5 mg PO HS 07/26/21 04/05/22 History Albuterol Sulfate [Proair Hfa] 2 puff INHALATION RT-Q4H PRN 04/05/22 04/05/22 H istory Budesonide/Glycopyr/Formoterol 1 puff INHALATION RT-BID 04/05/22 04/05/22 History [Breztri Aerosphere Inhaler] Flaxseed Oil 1200mg 1 cap PO DAILY 04/05/22 04/05/22 History Fluticasone/Vilanterol [Breo 1 puff INHALATION RT-DAILY 04/05/22 04/05/22 History Ellipta 100-25 Mcg Inhaler] Sodium Chloride [Doddridge] 1 spr EA NOSTRIL DAILY PRN 04/05/22 04/05/22 History Ubidecarenone [Coenzyme Q10] 200 mg PO DAILY 04/05/22 04/05/22 History Diltiazem Cd [Cardizem CD] 120 mg PO HS cap 04/17/22 Rx Diltiazem Cd [Cardizem CD] 360 mg PO DAILY cap 04/17/22 Rx Furosemide [Lasix] 40 mg PO BID@0900,1600 tab 04/17/22 Rx INSULIN ASPART (NovoLOG) [NovoLOG 0 unit SQ ACHS each 04/17/22 Rx (formulary)] INSULIN ASPART (NovoLOG) [NovoLOG 3 unit SQ ACHS each 04/17/22 Rx (formulary)] Insulin Detemir (Levemir) [Levemir] 20 unit SQ HS each 04/17/22 Rx Ipratropium-Albuterol Nebulize 3 ml INHALATION RT-Q2H PRN each 04/17/22 Rx [Duoneb 0.5 mg-3 mg/3 ml Soln] Metoprolol Tartrate [Lopressor] 50 mg PO TID #0 tab 04/17/22 Rx metOLazone [Zaroxolyn] 5 mg PO DAILY tab 04/17/22 Rx predniSONE 10 mg PO DIRECTED #40 tab 04/17/22 Rx Allergies Allergy/AdvReac Type Severity Reaction Status Date / Time No Known Allergies Allergy Verified 04/05/22 17:43 Physical Examination - Vital Signs Vital Signs: Vital Signs Temp Pulse Pulse Resp BP Pulse Ox 04/19/22 03:49 98.2 F 82 16 121/60 97 04/19/22 00:00 98 F 85 16 134/76 97 04/18/22 19:29 98.6 F 93 18 112/75 04/18/22 15:49 98.5 F 107 H 20 131/74 95 04/18/22 12:00 98.5 F 108 H 20 115/73 94 L Intake and Output 04/18/22 04/19/22 04/19/22 22:59 06:59 14:59 Intake Total 240 Output Total 377 033 4593 Balance -900 -400 -860 Intake: Oral 240 Output: Urine [id number] Other: Voiding Method Indwelling Catheter Indwelling Catheter Patient is a middle aged male, in no acute distress. Patient is slightly short of breath and difficulty breathing. Patient is alert awake oriented to time place and person. Patient states is May 2022, but then changed it to March. Patient knows his date of . Patient could not tell the day or the date. He knows he is in [facility] in [facility] and name of the current president. Speech and language functions are normal. Patient can name and repeat very well. No aphasia or dysarthria. Attention, concentration and fund of knowledge is adequate. On cranial nerve examination, pupils are equal, round and reacting to light, visual gimenez are full on confrontation, with no neglect on double simultaneous depression. Extraocular muscles are intact with no nystagmus. Face is symmetric, tongue protrudes to the midline. Palatal elevation and sensation normal, hearing and shoulder shrug normal, facial sensation normal. On muscle strength testing, there is no pronator drift and the strength is normal in arms and legs distally and proximally. Deep tendon reflexes are symmetric and trace at the biceps, trace brachioradialis, 1 at the knees, plantars withdrawal bilaterally. Sensory to touch is equal with no neglect on double simultaneous stimulation. Cerebellar function showed no ataxia for [id number] testing, although patient has mild tremor for [id number] testing bilaterally. No tremors at rest. Patient has mild to moderate fine metabolic type tremors of outstretched hands. Tone and bulk of muscles normal. Gait deferred.. On general examination, there is no carotid bruit or murmur, S1-S2 audible. Chest is clear on consultation. Abdomen is soft nontender. No organomegaly, bowel sounds present. Patient has hyperpigmentation of the lower limbs from toes up to the upper third of the lower legs. He has mild peripheral edema. Possible cellulitis left. Results - Laboratory Findings CBC and BMP: 04/19/22 07:50 04/19/22 07:50 Abnormal Lab Findings: Abnormal Labs 04/05/22 04/05/22 04/05/22 15:18 15:18 15:18 WBC RBC Hct MCHC RDW 15.6 H Plt Count 136 L Neutrophils # Lymphocytes # 0.7 L Monocytes # PT 12.4 H INR 1.2 H APTT 20.1 L ABG pH ABG pCO2 ABG pO2 ABG HCO3 ABG Total CO2 ABG O2 Saturation Sodium Chloride 97 L Carbon Dioxide 40 H BUN 34 H Creatinine Glucose 126 H POC Glucose (mg/dL) Calcium 8.2 L Delta Bilirubin ALT Troponin I Total Protein Albumin Procalcitonin 04/05/22 04/05/22 04/05/22 15:18 18:39 20:07 WBC RBC Hct MCHC RDW Plt Count Neutrophils # Lymphocytes # Monocytes # PT INR APTT ABG pH 7.25 L ABG pCO2 82 H* ABG pO2 70 L ABG HCO3 36 H ABG Total CO2 39 H ABG O2 Saturation 91.1 L Sodium Chloride Carbon Dioxide BUN Creatinine Glucose POC Glucose (mg/dL) Calcium Delta Bilirubin ALT Troponin I 0.035 H* 0.038 H* Total Protein Albumin Procalcitonin 04/05/22 04/05/22 04/05/22 21:09 22:49 23:41 WBC RBC Hct MCHC RDW Plt Count Neutrophils # Lymphocytes # Monocytes # PT INR APTT ABG pH 7.25 L ABG pCO2 84 H* ABG pO2 65 L ABG HCO3 37 H ABG Total CO2 40 H ABG O2 Saturation 89.6 L Sodium Chloride Carbon Dioxide BUN Creatinine Glucose POC Glucose (mg/dL) 157 H Calcium Delta Bilirubin ALT Troponin I 0.036 H* Total Protein Albumin Procalcitonin 04/06/22 04/06/22 04/06/22 00:40 05:10 05:36 WBC RBC Hct MCHC RDW Plt Count Neutrophils # 8.5 H Lymphocytes # 0.4 L Monocytes # PT INR APTT ABG pH 7.27 L ABG pCO2 80 H* 62 H ABG pO2 67 L 58 L* ABG HCO3 36 H 37 H ABG Total CO2 39 H 39 H ABG O2 Saturation 91.3 L 90.4 L Sodium Chloride Carbon Dioxide BUN Creatinine Glucose POC Glucose (mg/dL) Calcium Delta Bilirubin ALT Troponin I Total Protein Albumin Procalcitonin 04/06/22 04/06/22 04/06/22 05:36 11:57 23:44 WBC RBC Hct MCHC RDW Plt Count Neutrophils # Lymphocytes # Monocytes # PT INR APTT ABG pH ABG pCO2 ABG pO2 ABG HCO3 ABG Total CO2 ABG O2 Saturation Sodium Chloride Carbon Dioxide 35 H BUN 37 H Creatinine Glucose 192 H POC Glucose (mg/dL) 154 H 177 H Calcium 8.1 L Delta Bilirubin ALT Troponin I Total Protein 5.8 L Albumin 3.3 L Procalcitonin 04/07/22 04/07/22 04/07/22 05:05 05:05 05:17 WBC 13.2 H RBC Hct MCHC RDW Plt Count Neutrophils # 12.4 H Lymphocytes # 0.3 L Monocytes # PT INR APTT ABG pH ABG pCO2 58 H ABG pO2 63 L ABG HCO3 34 H ABG Total CO2 36 H ABG O2 Saturation 91.2 L Sodium Chloride 95 L Carbon Dioxide BUN 43 H Creatinine 1.26 H Glucose 186 H POC Glucose (mg/dL) Calcium 8.3 L Delta Bilirubin ALT Troponin I Total Protein Albumin Procalcitonin 04/07/22 04/07/22 04/07/22 05:33 11:38 12:10 WBC RBC Hct MCHC RDW Plt Count Neutrophils # Lymphocytes # Monocytes # PT INR APTT ABG pH ABG pCO2 ABG pO2 ABG HCO3 ABG Total CO2 ABG O2 Saturation Sodium Chloride Carbon Dioxide BUN Creatinine Glucose POC Glucose (mg/dL) 172 H 183 H 157 H Calcium Delta Bilirubin ALT Troponin I Total Protein Albumin Procalcitonin 04/07/22 04/08/22 04/08/22 17:53 00:06 04:50 WBC 12.1 H RBC Hct MCHC 30.7 L RDW Plt Count Neutrophils # 11.4 H Lymphocytes # 0.2 L Monocytes # PT INR APTT ABG pH ABG pCO2 ABG pO2 ABG HCO3 ABG Total CO2 ABG O2 Saturation Sodium Chloride Carbon Dioxide BUN Creatinine Glucose POC Glucose (mg/dL) 158 H 168 H Calcium Delta Bilirubin ALT Troponin I Total Protein Albumin Procalcitonin 04/08/22 04/08/22 04/08/22 04:50 05:14 11:16 WBC RBC Hct MCHC RDW Plt Count Neutrophils # Lymphocytes # Monocytes # PT INR APTT ABG pH ABG pCO2 61 H ABG pO2 62 L ABG HCO3 34 H ABG Total CO2 36 H ABG O2 Saturation 89.9 L Sodium Chloride 94 L Carbon Dioxide 31 H BUN 60 H Creatinine 1.74 H Glucose 175 H POC Glucose (mg/dL) 162 H Calcium 8.3 L Delta Bilirubin ALT Troponin I Total Protein Albumin Procalcitonin 04/08/22 04/08/22 04/09/22 18:05 23:27 05:05 WBC RBC Hct MCHC RDW Plt Count Neutrophils # 9.3 H Lymphocytes # 0.2 L Monocytes # PT INR APTT ABG pH ABG pCO2 ABG pO2 ABG HCO3 ABG Total CO2 ABG O2 Saturation Sodium Chloride Carbon Dioxide BUN Creatinine Glucose POC Glucose (mg/dL) 169 H 159 H Calcium Delta Bilirubin ALT Troponin I Total Protein Albumin Procalcitonin 10/04/2104/09/22 04/09/22 05:05 05:10 05:25 WBC RBC Hct MCHC RDW Plt Count Neutrophils # Lymphocytes # Monocytes # PT INR APTT ABG pH ABG pCO2 59 H ABG pO2 62 L ABG HCO3 35 H ABG Total CO2 37 H ABG O2 Saturation 90.9 L Sodium Chloride 95 L Carbon Dioxide 33 H BUN 74 H Creatinine 1.68 H Glucose 168 H POC Glucose (mg/dL) 172 H Calcium 8.1 L Delta Bilirubin ALT Troponin I Total Protein Albumin Procalcitonin 04/09/22 04/09/22 04/09/22 11:23 17:28 23:51 WBC RBC Hct MCHC RDW Plt Count Neutrophils # Lymphocytes # Monocytes # PT INR APTT ABG pH ABG pCO2 ABG pO2 ABG HCO3 ABG Total CO2 ABG O2 Saturation Sodium Chloride Carbon Dioxide BUN Creatinine Glucose POC Glucose (mg/dL) 147 H 157 H 163 H Calcium Delta Bilirubin ALT Troponin I Total Protein Albumin Procalcitonin 04/10/22 04/10/22 04/10/22 05:02 05:02 05:15 WBC RBC Hct MCHC RDW Plt Count Neutrophils # 9.1 H Lymphocytes # 0.1 L Monocytes # PT INR APTT ABG pH ABG pCO2 62 H ABG pO2 62 L ABG HCO3 43 H* ABG Total CO2 45 H ABG O2 Saturation 90.9 L Sodium Chloride 89 L Carbon Dioxide 40 H BUN 78 H Creatinine 1.59 H Glucose 176 H POC Glucose (mg/dL) Calcium 8.0 L Delta Bilirubin ALT Troponin I Total Protein Albumin Procalcitonin 04/10/22 04/10/22 04/10/22 05:47 11:26 17:28 WBC RBC Hct MCHC RDW Plt Count Neutrophils # Lymphocytes # Monocytes # PT INR APTT ABG pH ABG pCO2 ABG pO2 ABG HCO3 ABG Total CO2 ABG O2 Saturation Sodium Chloride Carbon Dioxide BUN Creatinine Glucose POC Glucose (mg/dL) 168 H 154 H 160 H Calcium Delta Bilirubin ALT Troponin I Total Protein Albumin Procalcitonin 04/10/22 04/11/22 04/11/22 23:19 04:25 04:25 WBC RBC Hct MCHC RDW Plt Count 136 L Neutrophils # 9.9 H Lymphocytes # 0.2 L Monocytes # PT INR APTT ABG pH ABG pCO2 ABG pO2 ABG HCO3 ABG Total CO2 ABG O2 Saturation Sodium Chloride 83 L Carbon Dioxide 41 H* BUN 87 H Creatinine 1.71 H Glucose 215 H POC Glucose (mg/dL) 185 H Calcium Delta Bilirubin ALT Troponin I Total Protein Albumin Procalcitonin 04/11/22 04/11/22 04/11/22 05:36 05:52 11:39 WBC RBC Hct MCHC RDW Plt Count Neutrophils # Lymphocytes # Monocytes # PT INR APTT ABG pH 7.47 H ABG pCO2 67 H ABG pO2 65 L ABG HCO3 49 H* ABG Total CO2 51 H ABG O2 Saturation 91.7 L Sodium Chloride Carbon Dioxide BUN Creatinine Glucose POC Glucose (mg/dL) 195 H 209 H Calcium Delta Bilirubin ALT Troponin I Total Protein Albumin Procalcitonin 04/11/22 04/11/22 04/11/22 13:17 17:45 21:37 WBC RBC Hct MCHC RDW Plt Count Neutrophils # Lymphocytes # Monocytes # PT INR APTT ABG pH ABG pCO2 72 H* ABG pO2 76 L ABG HCO3 50 H* ABG Total CO2 53 H ABG O2 Saturation Sodium Chloride Carbon Dioxide BUN Creatinine Glucose POC Glucose (mg/dL) 152 H 191 H Calcium Delta Bilirubin ALT Troponin I Total Protein Albumin Procalcitonin 04/11/22 04/12/22 04/12/22 23:32 03:55 03:55 WBC 13.8 H RBC Hct MCHC RDW Plt Count 123 L Neutrophils # 12.6 H Lymphocytes # 0.3 L Monocytes # PT INR APTT ABG pH ABG pCO2 ABG pO2 ABG HCO3 ABG Total CO2 ABG O2 Saturation Sodium Chloride 81 L Carbon Dioxide 44 H* BUN 87 H Creatinine 1.46 H Glucose 164 H POC Glucose (mg/dL) 168 H Calcium Delta Bilirubin ALT Troponin I Total Protein Albumin Procalcitonin 04/12/22 04/12/22 04/12/22 06:07 11:34 16:39 WBC RBC Hct MCHC RDW Plt Count Neutrophils # Lymphocytes # Monocytes # PT INR APTT ABG pH ABG pCO2 ABG pO2 ABG HCO3 ABG Total CO2 ABG O2 Saturation Sodium Chloride Carbon Dioxide BUN Creatinine Glucose POC Glucose (mg/dL) 169 H 232 H 205 H Calcium Delta Bilirubin ALT Troponin I Total Protein Albumin Procalcitonin 04/12/22 04/13/22 04/13/22 19:50 06:14 07:41 WBC 13.9 H RBC 6.00 H Hct 54.6 H MCHC 30.9 L RDW Plt Count 106 L Neutrophils # 11.9 H Lymphocytes # 0.6 L Monocytes # 1.1 H PT INR APTT ABG pH ABG pCO2 ABG pO2 ABG HCO3 ABG Total CO2 ABG O2 Saturation Sodium Chloride Carbon Dioxide BUN Creatinine Glucose POC Glucose (mg/dL) 167 H 124 H Calcium Delta Bilirubin ALT Troponin I Total Protein Albumin Procalcitonin 04/13/22 04/13/22 04/13/22 07:41 11:18 17:22 WBC RBC Hct MCHC RDW Plt Count Neutrophils # Lymphocytes # Monocytes # PT INR APTT ABG pH ABG pCO2 ABG pO2 ABG HCO3 ABG Total CO2 ABG O2 Saturation Sodium Chloride 81 L Carbon Dioxide 50 H* BUN 79 H Creatinine Glucose 108 H POC Glucose (mg/dL) 163 H 207 H Calcium Delta Bilirubin ALT Troponin I Total Protein Albumin Procalcitonin 04/13/22 04/14/22 04/14/22 20:31 06:08 10:15 WBC 13.3 H RBC Hct 53.3 H MCHC RDW Plt Count 91 L Neutrophils # 11.2 H Lymphocytes # 0.8 L Monocytes # 1.1 H PT INR APTT ABG pH ABG pCO2 ABG pO2 ABG HCO3 ABG Total CO2 ABG O2 Saturation Sodium Chloride Carbon Dioxide BUN Creatinine Glucose POC Glucose (mg/dL) 210 H 123 H Calcium Delta Bilirubin ALT Troponin I Total Protein Albumin Procalcitonin 04/14/22 04/14/22 04/14/22 10:15 11:43 17:01 WBC RBC Hct MCHC RDW Plt Count Neutrophils # Lymphocytes # Monocytes # PT INR APTT ABG pH ABG pCO2 ABG pO2 ABG HCO3 ABG Total CO2 ABG O2 Saturation Sodium 136 L Chloride 82 L Carbon Dioxide 44 H* BUN 64 H Creatinine 1.40 H Glucose 145 H POC Glucose (mg/dL) 141 H 185 H Calcium 8.2 L Delta Bilirubin ALT Troponin I Total Protein Albumin Procalcitonin 04/14/22 04/15/22 04/15/22 19:53 07:02 07:02 WBC RBC Hct MCHC RDW Plt Count Neutrophils # Lymphocytes # Monocytes # PT INR APTT ABG pH ABG pCO2 ABG pO2 ABG HCO3 ABG Total CO2 ABG O2 Saturation Sodium 136 L Chloride 84 L Carbon Dioxide 44 H* BUN 62 H Creatinine 1.29 H Glucose POC Glucose (mg/dL) 114 H Calcium Delta Bilirubin ALT Troponin I Total Protein Albumin Procalcitonin 0.10 H 04/15/22 04/15/22 04/16/22 11:22 16:35 06:07 WBC RBC Hct MCHC RDW Plt Count Neutrophils # Lymphocytes # Monocytes # PT INR APTT ABG pH ABG pCO2 ABG pO2 ABG HCO3 ABG Total CO2 ABG O2 Saturation Sodium Chloride Carbon Dioxide BUN Creatinine Glucose POC Glucose (mg/dL) 210 H 273 H 194 H Calcium Delta Bilirubin ALT Troponin I Total Protein Albumin Procalcitonin 04/16/22 04/16/22 04/16/22 11:51 16:51 20:15 WBC RBC Hct MCHC RDW Plt Count Neutrophils # Lymphocytes # Monocytes # PT INR APTT ABG pH ABG pCO2 ABG pO2 ABG HCO3 ABG Total CO2 ABG O2 Saturation Sodium Chloride Carbon Dioxide BUN Creatinine Glucose POC Glucose (mg/dL) 124 H 299 H 197 H Calcium Delta Bilirubin ALT Troponin I Total Protein Albumin Procalcitonin 04/17/22 04/17/22 04/17/22 06:29 11:40 16:47 WBC RBC Hct MCHC RDW Plt Count Neutrophils # Lymphocytes # Monocytes # PT INR APTT ABG pH ABG pCO2 ABG pO2 ABG HCO3 ABG Total CO2 ABG O2 Saturation Sodium Chloride Carbon Dioxide BUN Creatinine Glucose POC Glucose (mg/dL) 116 H 146 H 184 H Calcium Delta Bilirubin ALT Troponin I Total Protein Albumin Procalcitonin 04/17/22 04/17/22 04/17/22 18:47 19:27 20:14 WBC 16.7 H RBC Hct MCHC RDW Plt Count 114 L Neutrophils # Lymphocytes # Monocytes # PT INR APTT ABG pH ABG pCO2 61 H ABG pO2 ABG HCO3 40 H* ABG Total CO2 42 H ABG O2 Saturation 97.1 H Sodium Chloride Carbon Dioxide BUN Creatinine Glucose POC Glucose (mg/dL) 145 H Calcium Delta Bilirubin ALT Troponin I Total Protein Albumin Procalcitonin 04/18/22 04/18/22 04/18/22 11:49 16:48 19:38 WBC RBC Hct MCHC RDW Plt Count Neutrophils # Lymphocytes # Monocytes # PT INR APTT ABG pH ABG pCO2 ABG pO2 ABG HCO3 ABG Total CO2 ABG O2 Saturation Sodium Chloride Carbon Dioxide BUN Creatinine Glucose POC Glucose (mg/dL) 124 H 124 H 194 H Calcium Delta Bilirubin ALT Troponin I Total Protein Albumin Procalcitonin 04/19/22 04/19/22 07:50 07:50 WBC 19.7 H RBC 6.11 H Hct 54.2 H MCHC RDW Plt Count 109 L Neutrophils # 17.6 H Lymphocytes # 0.9 L Monocytes # PT INR APTT ABG pH ABG pCO2 ABG pO2 ABG HCO3 ABG Total CO2 ABG O2 Saturation Sodium Chloride 90 L Carbon Dioxide 37 H BUN 44 H Creatinine Glucose 101 H POC Glucose (mg/dL) Calcium Delta Bilirubin 0.4 H ALT 77 H Troponin I Total Protein Albumin Procalcitonin Assessment and Plan Assessment: * Altered mental status, probable mild delirium due to acute medical illness. Probable mild metabolic encephalopathy. Reasons multifactorial as mentioned below. * Gram-positive bacteremia * Probable corticosteroids (prednisone) also contributing to delirium. * Lower extremity cellulitis * COPD, CO2 retainer, oxygen dependent * Chronic lower extremity edema * Hypertension * Atrial fibrillation with rapid ventricular rate on anticoagulation. * Former tobacco use * Obesity Plan: * Patient's examination is completely nonfocal. Patient's clinical examination is consistent with delirium/metabolic encephalopathy. * Management of various medical conditions as per IM and other specialties. * We will check B12, folate, TSH, B1, ESR, CRP. * Continue Eliquis 5 mg twice a day for stroke prevention related to atrial fibrillation. * Neurology will follow clinically.
[2022-04-20] MEDS: HYDROcodone/APAP 5-325MG 1 EACH TAB PO PRN ×4 (00:21→23:15)
[2022-04-20 00:50] LABS: Appearance,Urine Cloudy (Clear); Bacteria,Urine Rare /hpf; Bilirubin,Urine Negative (Negative); Blood,Urine Small (Negative); Color,Urine Yellow; Glucose,Urine (UA) Negative (Negative); Hyaline Casts,Urine 3 /lpf (0-2); Ketones,Urine Negative (Negative); Leukocyte Esterase,Urine Negative (Negative); Mucus,Urine Occasional /hpf; Nitrite,Urine Negative (Negative); Protein,Urine Negative (Negative); RBC,Urine 21 /hpf (0-5); Specific Gravity,Urine 1.014 (1.001-1.035); Squamous Epithelial Cell,Urine 1 /hpf (0-4); Uric Acid Crystals,Urine Rare /hpf; WBC,Urine 2 /hpf (0-5)
[2022-04-20 06:01] LABS: Glucose,Whole Blood 109 mg/dL (70-110)
[2022-04-20] MEDS: INSULIN ASPART (NovoLOG) 100 UNIT/ML VIAL SQ SCH ×8 (06:10→21:31)
[2022-04-20 08:00] LABS: Basophils # (A) 0.1 k/uL (0-0.2); Basophils % (A) 0 %; Eosinophils # (A) 0.2 k/uL (0-0.7); Eosinophils % (A) 1 %; HCT 52.6 % (39.0-53.0); HGB 16.8 gm/dL (13.0-17.5); Hypochromasia Moderate; Lymphocytes # (A) 1.8 k/uL (1.0-4.8); Lymphocytes % (A) 10 %; MCH 28.1 pg (25.0-35.0); MCHC 31.9 g/dL (31.0-37.0); MCV 88.2 fL (80.0-100.0); Mean Platelet Volume 9.5; Monocytes % (A) 5 %; Neutrophils # (A) 14.7 k/uL (1.3-7.7); Neutrophils % (A) 82 %; Platelet Count 113 k/uL (150-450); RBC 5.96 m/uL (4.30-5.90); RDW 14.1 % (11.5-15.5); WBC 17.8 k/uL (3.8-10.6)
[2022-04-20 09:15] LABS: Erythrocyte Sedimentation Rate 2 mm/hr (0-15)
[2022-04-20 09:17] LABS: ALT 79 U/L (4-49); AST 42 U/L (17-59); African American GFR (CKD) 62 (>60 ml/min/1.73 sqM); Albumin 4.3 g/dL (3.5-5.0); Alkaline Phosphatase 100 U/L (38-126); Anion Gap 10 mmol/L; Bilirubin, Delta 0.5 mg/dL (0.0-0.2); Bilirubin,Unconjugated 0.3 mg/dL (0.0-1.1); Blood Urea Nitrogen 47 mg/dL (9-20); Calcium 8.6 mg/dL (8.4-10.2); Carbon Dioxide 35 mmol/L (22-30); Chloride 91 mmol/L (98-107); Glucose 102 mg/dL (74-99); Magnesium 1.8 mg/dL (1.6-2.3); Non-African American GFR(CKD) 54 (>60 ml/min/1.73 sqM); Potassium 3.9 mmol/L (3.5-5.1); Sodium 136 mmol/L (137-145); Total Bilirubin 0.8 mg/dL (0.2-1.3)
[2022-04-20 09:36] LABS: C Reactive Protein 0.6 mg/dL (<1.0)
[2022-04-20] MEDS: APIXABAN 5 MG TAB PO SCH ×2 (09:54→21:30)
[2022-04-20] MEDS: FAMOTIDINE 20 MG TAB PO SCH ×2 (09:54→21:30)
[2022-04-20] MEDS: FUROSEMIDE 40 MG TAB PO SCH ×2 (09:54→17:14)
[2022-04-20] MEDS: METOPROLOL TARTRATE 50 MG TAB PO SCH ×3 (09:54→21:30)
[2022-04-20] MEDS: predniSONE 10 MG TAB PO SCH (09:55)
[2022-04-20] MEDS: DILTIAZEM CD 180 MG CAP.ER.24H PO SCH (09:55)
[2022-04-20] MEDS: metOLazone 5 MG TAB PO SCH (09:56)
--- NOTE | 2022-04-20 11:11 | P.PN ---
Subjective This is a 56-year-old male who is being monitored in the intensive care unit secondary to acute hypoxic respiratory failure as well as acute CHF exa cerbation. Patient found to be in atrial fibrillation with rapid ventricular rate post intubation. The patient is currently intubated with FiO2 50%, current oxygen saturations 89%. Cardizem gtt weaned yesterday, he is on oral cardizem. Chest x-ray this morning showing pulmonary vascular congestion and bilateral pleural effusions correlate for congestive heart failure. Sodium stable at 137, creatinine is trending down at 1.68, peaked yesterday at 1.74. Infectious disease has been consulted for wound cultures positive for presumptive MRSA and gram negative bacilli to the left leg and is currently maintained on IV cefepime and IV vancomycin pending finalized cultures. He continues on IV Lasix every 12, IV steroids 60 every 6 hours. 04/10/2022 Patient continues to be monitored in intensive care unit, on mechanical ventilator with FiO2 of 50%. Remains tachycardic in the 110-120s. He also had temperature of 100 this morning. Chest xray today showing congestive heart failure with likely associated effusions. Pneumonia not excluded. Patient started on lasix gtt yesterday afternoon, he has total of 3.8 L off in the last 24 hours, He is down 5 kg since yesterday, overall his weight is up since admission. Creatinine has improved today 1.59. Cultures are being repeated with concern of fever. He is being followed closely by pulmonary, cardiology, infectious disease. 04/11/2022 Patient is monitored closely in intensive care unit, he is currently intubated on mechanical ventilator with FiO2 of 50%. He has been maintained on lasix gtt currently at 5 with urine output of 8.7 L in the last 24 hours. He continues to be sedated with propofol. Wound culture has finalized to gram negative bacilli/MRSA/enterococcus and patient is being followed by infectious disease on IV cefepime. Blood cultures were taken yesterday and are showing gram positive cocci in clusters, IV vancomycin has been started today, and repeat blood cultures taken. Follow up chest xray today showing pulmonary vascular congestion with moderate effusions/atelectasis vs. consolidation. He is receiving enteral tube feedings with vital AF and blood sugars have been elevated in the 180s to 200s. For this novolog was increased to 2 units with scale every 6 hours and also levemir HS has been added for better glycemic control. Procalcitonin follow up 0.09. Creatinine is slightly increased today at 1.71. Patient remains in atrial fibrillation with elevated heart rate in the 130s, and continues on oral cardizem. T-max over night 100.1, and blood pressure 120/70s. Patient is being followed closely by cardiology, pulmonary insurance follow up rep, and infectious disease services. 04/12/2022 Patient is evaluated in intensive care unit sitting up in chair. Patient was extubated yesterday around 1330. Currently he is on oxygen support with 6L nasal cannula saturation 93%. He denies chest pain, no shortness of breath. He is tolerating some liquid diet. He continues with negative fluid balance about -3.7 L in the last 24 hours and lasix gtt has been discontinued. IV lasix 40 mg every 12 hours has been started. Repeat chest xray from today showing persistent retrocardiac atelectasis and consolidation. Blood culture showing staph epi possibly a contaminent, repeat is pending. Continues on IV cefepime managed by infectious disease. Patient continues in atrial fibrillation with heart rate in the 140s, cardiology has increased oral cardizem and started patient on metoprolol today. Labs reviewed today showing white count 13.8, BUN 87, creatinine 1.46, blood glucose in the 180s. 04/13/2022 Patient lying in bed still complaining of from dyspnea with little cough and phlegm but no chest pain he still saturating 6 L per minute. remains on cefepime and prednisone 40 mg for his COPD and positive blood culture with staph epidermidis and coagulase-negative staph. While his wound culture is growing MRSA, pseudomonas, entero-cocci, ID team on the case. Also he is on Eliquis 5 mg. Troponin is mildly elevated but patient with no chest pain. Cardiology team on the case Also echocardiogram showed ejection fraction of 50-55% Chest x-ray showing mild CHF with right basal infiltrate. On examination he has decreased breath sounds in bilateral patellar ligament edema 2+ Patient states he is on 3 L of oxygen at home for his COPD and his cafe server is Dr. Gregory Cisneros catheter in place with clear yellow urine 04/14/2022 Patient with no significant tachypnea at rest however is still on 67 oxygen liter per minute requirement which is similar to yesterday. He still has bilateral patellar like edema about 2+, there is mild evidence of cellulitis on his been treated with antibiotics with improvement. He confirms he is on 3 L oxygen at home. No other new complaints, his creatinine went up to 1.4 but carbon dioxide improved down to 44. He still have mild leukocytosis while on prednisone 40 mg. Slightly tachycardic. 04/15/2022 Patient is clinically doing well, his dyspnea improving. No chest pain. He is at 4 L/m of oxygen. At baseline he confirms he is a 3 L/m. Pulmonary team signed off. Strength And Conditioning Coach team have no further recommendation. Per ID team discontinue IV. Cefepime and keep monitoring. He require subacute rehab. rice farmworker consulted Possible discharge in 24-48 hours 04/16/2022 pt is clinically doing well , he is medically stable and is cleared for discharge by all consultants. He is off antibiotics and doing well. His postoperative go to ECF upon discharge However patient looks severely depressed and patient and family requesting psychiatrist to evaluate the patient. We will hold discharge until seen by psychiatrist 04/18/2022 this is a follow-up note to: (please refer to the discharge summary note from yesterday 04/17/2022) Patient is supposed to be discharged yesterday and he was found stable by all consultants including psychiatrist, fruit buyer, infectious disease team and cafe server. However her discharge was held later on because patient got a gitated and has tried to follow-up his lines and Cisneros catheter. Seroquel 2 could not come and down. Patient was at risk at him on self. CT of the brain could not be done immediately because patient was so agitated. Patient received Haldol and he come down. CT of the brain is negative for acute processes. When I saw the patient in the morning he was sleeping in bed, looks comfortable not in distress, his examination is limited by his sleepiness. Cranial nerves are grossly intact. Pupils are equal and reactive to light. No asymmetry noted. Abdomen looks soft. And used as examination. Patient could not provide information secondary to above. I discussed the case with fruit buyer for follow-up. Labs are reviewed. Checked with the nurse at evening time patient is starts waking up . He is, currently. says the patient woke up after the Haldol we are going to place him on the neuro check We will repeat labs in the morning. Based on his condition we will do further recommendation.He is breathing quietly and he looks at his baseline of 4 L/m 04/19/2022 Patient today is more awake although lethargic, he knows he isn't [facility] although thought first it's [facility]. However he is disoriented to time, person and he has no insight into his illness. He follows commands and looks calm. He denies any specific cause. His breathing is quiet and abdomen soft and no urinary complaints. His legs erythema is chronic and stable. No signs of cellulitis. Remains on Eliquis, prednisone is lowered to 30 mg as steroids can cause psychosis as well. Also patient has been using Dilaudid IV which also may contribute to confusion was stopped intravenous Dilaudid and started on [place] 5-325 when necessary. From pain medication also can cause confusion Discussed the case with psychiatry today, Zoloft and melatonin added and Zyprexa when necessary. Neurology team were consulted 04/20/2022 Patient is more oriented today, he knows in the hospital the day than the name of the president which is improvement compared to yesterday however he still have disoriented about his illness which is expected but patient is improving. Patient was started on Zoloft by psychiatrist for depression as well as melatonin which helped him sleep well last night. Neurologist also on the case, B12 is pending as well as folate BUN and ESR and further workup TSH is normal. Creatinine today is 1.4. Patient breathing is a stable Remains on Eliquis, prednisone 30 mg and oral Lasix. Objective - Vital Signs Vital signs: Vital Signs Temp 97.8 F 04/20/22 08:00 Pulse 76 04/20/22 08:00 Resp 17 04/20/22 08:00 BP 97/52 04/20/22 08:00 Pulse Ox 92 L 04/20/22 08:00 FiO2 40 04/18/22 00:28 Intake & Output 04/19/22 04/20/22 04/20/22 18:59 06:59 18:59 Intake Total 538 240 Output Total 1100 1700 300 Balance -562 -1700 -60 Weight 119.5 kg 127.9 kg Intake: Oral 538 240 Output: Urine 1100 1700 300 Uretheral (Cisneros) 1700 Other: Voiding Method Indwelling Catheter Indwelling Catheter Indwelling Catheter # Voids 700 ABP, PAP, CO, CI - Last Documented Arterial Blood Pressure 137/84 - Exam -GENERAL: The patient is more awake and alert to time place and person. Call. Patient has no acute distress. Well developed, well nourished. HEENT: Pupils are round and equally reacting to light. EOMI. No scleral icterus. No conjunctival pallor. Normocephalic, atraumatic. No pharyngeal erythema. No thyromegaly. CARDIOVASCULAR: S1 and S2 present. No murmurs, rubs, or gallops. PULMONARY: Chest is clear to auscultation, no wheezing . Mild basal crepitation ABDOMEN: Soft, nontender, nondistended, normoactive bowel sounds. No palpable organomegaly. MUSCULOSKELETAL: No joint swelling or deformity. EXTREMITIES: No cyanosis, clubbing, or pedal edema. NEUROLOGICAL: Gross neurological examination did not reveal any focal deficits. SKIN: No rashes. no petechiae. - Labs CBC & Chem 7: 04/20/22 07:11 04/20/22 07:11 Labs: Abnormal Lab Results - Last 24 Hours (Table) 04/19/22 04/19/22 04/19/22 Range/Units 11:57 16:34 20:10 WBC (3.8-10.6) k/uL RBC (4.30-5.90) m/uL Plt Count (150-450) k/uL Neutrophils # (1.3-7.7) k/uL Sodium (137-145) mmol/L Chloride (98-107) mmol/L Carbon Dioxide (22-30) mmol/L BUN (9-20) mg/dL Creatinine (0.66-1.25) mg/dL Glucose (74-99) mg/dL POC Glucose (mg/dL) 170 H 307 H 149 H (70-110) mg/dL Hemoglobin A1c (0.0-6.0) % Delta Bilirubin (0.0-0.2) mg/dL ALT (4-49) U/L Urine Blood (Negative) Urine RBC (0-5) /hpf Uric Acid Crystals (None) /hpf Urine Bacteria (None) /hpf Hyaline Casts (0-2) /lpf Urine Mucus (None) /hpf 04/20/22 04/20/22 04/20/22 Range/Units 00:13 07:11 07:11 WBC 17.8 H (3.8-10.6) k/uL RBC 5.96 H (4.30-5.90) m/uL Plt Count 113 L (150-450) k/uL Neutrophils # 14.7 H (1.3-7.7) k/uL Sodium (137-145) mmol/L Chloride (98-107) mmol/L Carbon Dioxide (22-30) mmol/L BUN (9-20) mg/dL Creatinine (0.66-1.25) mg/dL Glucose (74-99) mg/dL POC Glucose (mg/dL) (70-110) mg/dL Hemoglobin A1c 6.7 H (0.0-6.0) % Delta Bilirubin (0.0-0.2) mg/dL ALT (4-49) U/L Urine Blood Small H (Negative) Urine RBC 21 H (0-5) /hpf Uric Acid Crystals Rare H (None) /hpf Urine Bacteria Rare H (None) /hpf Hyaline Casts 3 H (0-2) /lpf Urine Mucus Occasional H (None) /hpf 04/20/22 Range/Units 07:11 WBC (3.8-10.6) k/uL RBC (4.30-5.90) m/uL Plt Count (150-450) k/uL Neutrophils # (1.3-7.7) k/uL Sodium 136 L (137-145) mmol/L Chloride 91 L (98-107) mmol/L Carbon Dioxide 35 H (22-30) mmol/L BUN 47 H (9-20) mg/dL Creatinine 1.42 H (0.66-1.25) mg/dL Glucose 102 H (74-99) mg/dL POC Glucose (mg/dL) (70-110) mg/dL Hemoglobin A1c (0.0-6.0) % Delta Bilirubin 0.5 H (0.0-0.2) mg/dL ALT 79 H (4-49) U/L Urine Blood (Negative) Urine RBC (0-5) /hpf Uric Acid Crystals (None) /hpf Urine Bacteria (None) /hpf Hyaline Casts (0-2) /lpf Urine Mucus (None) /hpf Assessment and Plan Assessment: AMS, mostly metabolic/toxic encephalopathy. Hysteroscopy contributing as well as pain medication. Rule out neurological causes Depression, associated with periods of agitation, improved with holdol. Patient started improving. Acute hypoxic respiratory failure secondary to acute diastolic CHF exacerbation and acute COPD exacerbation, extubated on 04/12/22, currently on 6L hi flow cannula. Atrial fibrillation rate with rapid ventricular rate on oral cardizem. And Eliquis Left lower extremity ulceration and possible cellulitis with culture showing presumptive MRSA/gram neg bacili Gram Positive bacteremia Hypertension Obstructive sleep apnea History of COPD, oxygen dependent History atrial flutter previous ablation Chronic lower extremity edema Former Smoker GI Prophylaxis Protonix DVT Prophylaxis Eliquis Full Code Plan: Patient is monitored closely in ICU, has been extubated on 04/12/22 Continue ANTIBIOTIC per ID team. Currently is not on antibiotics. Patient cleared by discharge by most consultants including pulmonary, cardiology psychiatry and infectious disease team Still neurologist on the case with workup is pending Continue with prednisone at a lower dose 30 mg DC Dilaudid. Add [place] Will benefit from ECF rehab upon discharge Monitor blood glucose DVT prophylaxis: Eliquis GI prophylaxis Pepcid Prognosis is guarded
[2022-04-20 11:27] LABS: Glucose,Whole Blood 108 mg/dL (70-110)
[2022-04-20 16:08] LABS: Glucose,Whole Blood 262 mg/dL (70-110)
[2022-04-20 20:08] LABS: Glucose,Whole Blood 147 mg/dL (70-110)
[2022-04-20] MEDS: DILTIAZEM CD 120 MG CAP.ER.24H PO SCH (21:30)
[2022-04-20] MEDS: SERTRALINE 50 MG TAB PO SCH (21:30)
[2022-04-20] MEDS: MELATONIN 5 MG TABLET PO SCH (21:30)
[2022-04-20] MEDS: INSULIN DETEMIR (LEVEMIR) 100 UNIT/ML SYR SQ SCH (21:31)
[2022-04-21 06:12] LABS: Glucose,Whole Blood 116 mg/dL (70-110)
[2022-04-21] MEDS: INSULIN ASPART (NovoLOG) 100 UNIT/ML VIAL SQ SCH ×8 (06:25→22:17)
[2022-04-21] MEDS: metOLazone 5 MG TAB PO SCH (08:54)
[2022-04-21] MEDS: predniSONE 10 MG TAB PO SCH (08:54)
[2022-04-21] MEDS: APIXABAN 5 MG TAB PO SCH ×2 (08:54→22:17)
[2022-04-21] MEDS: FUROSEMIDE 40 MG TAB PO SCH ×2 (08:54→16:24)
[2022-04-21] MEDS: METOPROLOL TARTRATE 50 MG TAB PO SCH ×3 (08:54→22:17)
[2022-04-21] MEDS: FAMOTIDINE 20 MG TAB PO SCH ×2 (08:54→22:17)
[2022-04-21] MEDS: DILTIAZEM CD 180 MG CAP.ER.24H PO SCH (08:55)
[2022-04-21] MEDS: HYDROcodone/APAP 5-325MG 1 EACH TAB PO PRN ×3 (09:05→22:16)
[2022-04-21 11:44] LABS: Glucose,Whole Blood 126 mg/dL (70-110)
--- NOTE | 2022-04-21 11:58 | P.PN ---
Subjective Progress Note Date: 04/20/22 Patient was seen for follow-up. Patient is sitting on side of the bed. Patient offers no new complaints. Denies any headache or dizziness. Objective - Vital Signs Vital signs: Vital Signs Temp 97.0 F L 04/20/22 16:00 Pulse 84 04/20/22 16:00 Resp 18 04/20/22 16:00 BP 140/82 04/20/22 16:00 Pulse Ox 94 L 04/20/22 16:00 FiO2 40 04/18/22 00:28 Intake & Output 04/20/22 04/20/22 04/21/22 06:59 18:59 06:59 Intake Total 480 Output Total 1700 2950 Balance -1700 -2470 Weight 127.9 kg Intake: Oral 480 Output: Urine 1700 2950 Uretheral (Cisneros) 1700 900 Other: Voiding Method Indwelling Catheter Indwelling Catheter ABP, PAP, CO, CI - Last Documented Arterial Blood Pressure 137/84 - Exam Patient is alert and oriented. He knows it is March and the year is . He thinks the date is . He knows he is in [facility] in [place]. Examination is otherwise unchanged. - Labs CBC & Chem 7: 04/20/22 07:11 04/20/22 07:11 Labs: Abnormal Lab Results - Last 24 Hours (Table) 04/19/22 04/20/22 04/20/22 Range/Units 20:10 00:13 07:11 WBC 17.8 H (3.8-10.6) k/uL RBC 5.96 H (4.30-5.90) m/uL Plt Count 113 L (150-450) k/uL Neutrophils # 14.7 H (1.3-7.7) k/uL Sodium (137-145) mmol/L Chloride (98-107) mmol/L Carbon Dioxide (22-30) mmol/L BUN (9-20) mg/dL Creatinine (0.66-1.25) mg/dL Glucose (74-99) mg/dL POC Glucose (mg/dL) 149 H (70-110) mg/dL Hemoglobin A1c (0.0-6.0) % Delta Bilirubin (0.0-0.2) mg/dL ALT (4-49) U/L Urine Blood Small H (Negative) Urine RBC 21 H (0-5) /hpf Uric Acid Crystals Rare H (None) /hpf Urine Bacteria Rare H (None) /hpf Hyaline Casts 3 H (0-2) /lpf Urine Mucus Occasional H (None) /hpf 04/20/22 04/20/22 04/20/22 Range/Units 07:11 07:11 16:07 WBC (3.8-10.6) k/uL RBC (4.30-5.90) m/uL Plt Count (150-450) k/uL Neutrophils # (1.3-7.7) k/uL Sodium 136 L (137-145) mmol/L Chloride 91 L (98-107) mmol/L Carbon Dioxide 35 H (22-30) mmol/L BUN 47 H (9-20) mg/dL Creatinine 1.42 H (0.66-1.25) mg/dL Glucose 102 H (74-99) mg/dL POC Glucose (mg/dL) 262 H (70-110) mg/dL Hemoglobin A1c 6.7 H (0.0-6.0) % Delta Bilirubin 0.5 H (0.0-0.2) mg/dL ALT 79 H (4-49) U/L Urine Blood (Negative) Urine RBC (0-5) /hpf Uric Acid Crystals (None) /hpf Urine Bacteria (None) /hpf Hyaline Casts (0-2) /lpf Urine Mucus (None) /hpf Assessment and Plan Assessment: * Altered mental status, probable mild delirium due to acute medical illness. Probable mild metabolic encephalopathy. Reasons multifactorial as mentioned below. * Gram-positive bacteremia * Probable corticosteroids (prednisone) also contributing to delirium. * Lower extremity cellulitis * COPD, CO2 retainer, oxygen dependent * Chronic lower extremity edema * Hypertension * Atrial fibrillation with rapid ventricular rate on anticoagulation. * Former tobacco use * Obesity Plan: * Patient's examination is completely nonfocal. Patient's clinical examination is consistent with delirium/metabolic encephalopathy. * Management of various medical conditions as per IM and other specialties. * B12 555, folate 10.80, TSH 2.54, ESR 2, CRP 0.6. All normal. Vitamin B1 level pending. * Continue Eliquis 5 mg twice a day for stroke prevention related to atrial fibrillation. * No other neurological workup indicated. Neurologically clear. Please call for any other concerns.
--- NOTE | 2022-04-21 15:42 | P.PN ---
Subjective Progress Note Date: 04/19/22 Principal diagnosis: Positive cultures left leg and possible cellulitis Patient is a 56-year-old male with a past medical history significant for COPD presenting to the hospital 4 days ago for evaluation of difficulty in breathing patient symptom has been going on for a couple of weeks before presentation to the hospital and the patient did have difficulty maintaining his O2 sats patient is not getting intubated also noticed to have swelling to the lower simply with some erythema and superficial ulceration culture was showing presented to MRSA and gram-negative the patient was extubated afternoon of 04/11/2022 on today's evaluation that is 04/19/2022, the patient remains to be afebrile the patient is breathing comfortably on 2 L nasal cannula oxygen. The patient denies chest pain he did have occasional dry cough no abdominal pain no diarrhea, denies pain to bilateral lower extremity Objective - Vital Signs Vital signs: Vital Signs Temp 98.0 F 04/19/22 08:00 Pulse 75 04/19/22 08:00 Resp 18 04/19/22 08:00 BP 128/75 04/19/22 08:00 Pulse Ox 96 04/19/22 08:00 FiO2 40 04/18/22 00:28 Intake & Output 04/18/22 04/19/22 04/19/22 18:59 06:59 18:59 Intake Total 240 Output Total 442 626 9140 Balance -900 -400 -860 Weight 119.5 kg Intake: Oral 240 Output: Urine 965 826 6985 Other: Voiding Method Indwelling Catheter Indwelling Catheter Indwelling Catheter ABP, PAP, CO, CI - Last Documented Arterial Blood Pressure 137/84 - Exam GENERAL DESCRIPTION: Middle-age male up in the chair RESPIRATORY SYSTEM: Unlabored breathing , decreased breath sounds at bases HEART: S1 S2 regular rate and rhythm , ABDOMEN: Soft , no tenderness EXTREMITIES: Diffuse swelling to bilateral lower extremity no wound or drainage - Labs CBC & Chem 7: 04/20/22 07:11 04/20/22 07:11 Labs: Abnormal Lab Results - Last 24 Hours (Table) 04/18/22 04/18/22 04/19/22 Range/Units 16:48 19:38 07:50 WBC 19.7 H (3.8-10.6) k/uL RBC 6.11 H (4.30-5.90) m/uL Hct 54.2 H (39.0-53.0) % Plt Count 109 L (150-450) k/uL Neutrophils # 17.6 H (1.3-7.7) k/uL Lymphocytes # 0.9 L (1.0-4.8) k/uL Chloride (98-107) mmol/L Carbon Dioxide (22-30) mmol/L BUN (9-20) mg/dL Glucose (74-99) mg/dL POC Glucose (mg/dL) 124 H 194 H (70-110) mg/dL Delta Bilirubin (0.0-0.2) mg/dL ALT (4-49) U/L 04/19/22 04/19/22 Range/Units 07:50 11:57 WBC (3.8-10.6) k/uL RBC (4.30-5.90) m/uL Hct (39.0-53.0) % Plt Count (150-450) k/uL Neutrophils # (1.3-7.7) k/uL Lymphocytes # (1.0-4.8) k/uL Chloride 90 L (98-107) mmol/L Carbon Dioxide 37 H (22-30) mmol/L BUN 44 H (9-20) mg/dL Glucose 101 H (74-99) mg/dL POC Glucose (mg/dL) 170 H (70-110) mg/dL Delta Bilirubin 0.4 H (0.0-0.2) mg/dL ALT 77 H (4-49) U/L Assessment and Plan (1) Cellulitis Current Visit: Yes Status: Acute Code(s): L03.90 - CELLULITIS, UNSPECIFIED SNOMED Code(s): 102510373 Plan: 1patient presented to hospital with acute respiratory failure currently on the ventilator likely multifactorial in this patient with underlying COPD and not concerning for increased swelling to bilateral lower extremity and some superficial ulceration and redness concerning for possible cellulitis with local culture not showing gram-negative and present to MRSA. 2positive blood culture with gram-positive cocci finalized for staph epi likely contamination, vancomycin has been discontinued 3-patient did have improvement in bilateral lower extremity swelling and redness currently and the patient inflammatory markers have normalized , patient has received adequate antibiotic therapy and we will continue to monitor the patient closely off antibiotics 4the patient did have a elevated white count possibly reactive to steroids, steroid dose has been cut back we will follow his white count closely Time with Patient: Less than 30
--- NOTE | 2022-04-21 15:43 | P.PN ---
Subjective Progress Note Date: 04/20/22 Principal diagnosis: Positive cultures left leg and possible cellulitis Patient is a 56-year-old male with a past medical history significant for COPD presenting to the hospital 4 days ago for evaluation of difficulty in breathing patient symptom has been going on for a couple of weeks before presentation to the hospital and the patient did have difficulty maintaining his O2 sats patient is not getting intubated also noticed to have swelling to the lower simply with some erythema and superficial ulceration culture was showing presented to MRSA and gram-negative the patient was extubated afternoon of 04/11/2022 on today's evaluation that is 04/20/2022, the patient continues to be afebrile the patient is breathing comfortably on 2 L nasal cannula oxygen. The patient denies chest pain , the patient did have occasional dry cough , the patient denies nausea no vomiting no abdominal pain no diarrhea, denies pain to bilateral lower extremity Objective - Vital Signs Vital signs: Vital Signs Temp 96.9 F L 04/20/22 12:00 Pulse 87 04/20/22 12:00 Resp 18 04/20/22 12:00 BP 124/76 04/20/22 12:00 Pulse Ox 95 04/20/22 12:00 FiO2 40 04/18/22 00:28 Intake & Output 04/19/22 04/20/22 04/20/22 18:59 06:59 18:59 Intake Total 538 240 Output Total 1100 1700 1050 Balance -562 -1700 -810 Weight 119.5 kg 127.9 kg Intake: Oral 538 240 Output: Urine 1100 1700 1050 Uretheral (Cisneros) 1700 Other: Voiding Method Indwelling Catheter Indwelling Catheter Indwelling Catheter # Voids 700 ABP, PAP, CO, CI - Last Documented Arterial Blood Pressure 137/84 - Exam GENERAL DESCRIPTION: Middle-age male up in the chair RESPIRATORY SYSTEM: Unlabored breathing , decreased breath sounds at bases HEART: S1 S2 regular rate and rhythm , ABDOMEN: Soft , no tenderness EXTREMITIES: Diffuse swelling to bilateral lower extremity no wound or drainage - Labs CBC & Chem 7: 04/20/22 07:11 04/20/22 07:11 Labs: Abnormal Lab Results - Last 24 Hours (Table) 04/19/22 04/19/22 04/20/22 Range/Units 16:34 20:10 00:13 WBC (3.8-10.6) k/uL RBC (4.30-5.90) m/uL Plt Count (150-450) k/uL Neutrophils # (1.3-7.7) k/uL Sodium (137-145) mmol/L Chloride (98-107) mmol/L Carbon Dioxide (22-30) mmol/L BUN (9-20) mg/dL Creatinine (0.66-1.25) mg/dL Glucose (74-99) mg/dL POC Glucose (mg/dL) 307 H 149 H (70-110) mg/dL Hemoglobin A1c (0.0-6.0) % Delta Bilirubin (0.0-0.2) mg/dL ALT (4-49) U/L Urine Blood Small H (Negative) Urine RBC 21 H (0-5) /hpf Uric Acid Crystals Rare H (None) /hpf Urine Bacteria Rare H (None) /hpf Hyaline Casts 3 H (0-2) /lpf Urine Mucus Occasional H (None) /hpf 04/20/22 04/20/22 04/20/22 Range/Units 07:11 07:11 07:11 WBC 17.8 H (3.8-10.6) k/uL RBC 5.96 H (4.30-5.90) m/uL Plt Count 113 L (150-450) k/uL Neutrophils # 14.7 H (1.3-7.7) k/uL Sodium 136 L (137-145) mmol/L Chloride 91 L (98-107) mmol/L Carbon Dioxide 35 H (22-30) mmol/L BUN 47 H (9-20) mg/dL Creatinine 1.42 H (0.66-1.25) mg/dL Glucose 102 H (74-99) mg/dL POC Glucose (mg/dL) (70-110) mg/dL Hemoglobin A1c 6.7 H (0.0-6.0) % Delta Bilirubin 0.5 H (0.0-0.2) mg/dL ALT 79 H (4-49) U/L Urine Blood (Negative) Urine RBC (0-5) /hpf Uric Acid Crystals (None) /hpf Urine Bacteria (None) /hpf Hyaline Casts (0-2) /lpf Urine Mucus (None) /hpf Assessment and Plan (1) Cellulitis Current Visit: Yes Status: Acute Code(s): L03.90 - CELLULITIS, UNSPECIFIED SNOMED Code(s): 707336129 Plan: 1patient presented to hospital with acute respiratory failure currently on the ventilator likely multifactorial in this patient with underlying COPD and not concerning for increased swelling to bilateral lower extremity and some s uperficial ulceration and redness concerning for possible cellulitis with local culture not showing gram-negative and present to MRSA. 2positive blood culture with gram-positive cocci finalized for staph epi likely contamination, vancomycin has been discontinued 3-patient did have improvement in bilateral lower extremity swelling and redness currently and the patient inflammatory markers have normalized , patient has received adequate antibiotic therapy and we will continue to monitor the patient closely off antibiotics 4leukocytosis possibly reactive to steroids, steroid dose has been cut back and the patient white count is down to 17.8 today will be monitored closely Time with Patient: Less than 30
--- NOTE | 2022-04-21 15:44 | P.PN ---
Subjective Progress Note Date: 04/21/22 Principal diagnosis: Positive cultures left leg and possible cellulitis Patient is a 56-year-old male with a past medical history significant for COPD presenting to the hospital 4 days ago for evaluation of difficulty in breathing patient symptom has been going on for a couple of weeks before presentation to the hospital and the patient did have difficulty maintaining his O2 sats patient is not getting intubated also noticed to have swelling to the lower simply with some erythema and superficial ulceration culture was showing presented to MRSA and gram-negative the patient was extubated afternoon of 04/11/2022 on today's evaluation that is 04/21/2022, the patient remains to be afebrile the patient is breathing comfortably on 2 L nasal cannula oxygen. The patient denies chest pain , no significant cough or sputum production. Denies any nausea no vomiting no abdominal pain no diarrhea and denies pain to bilateral lower extremity Objective - Vital Signs Vital signs: Vital Signs Temp 97.9 F 04/21/22 12:32 Pulse 78 04/21/22 12:32 Resp 18 04/21/22 12:32 BP 153/77 04/21/22 12:32 Pulse Ox 94 L 04/21/22 12:32 FiO2 40 04/18/22 00:28 Intake & Output 04/20/22 04/21/22 04/21/22 18:59 06:59 18:59 Intake Total 480 248 Output Total 2950 Balance -2470 248 Intake: IV 10 Invasive Line 9 10 Oral 480 238 Output: Urine 2950 Uretheral (Cisneros) 900 Other: Voiding Method Indwelling Catheter Toilet Toilet # Voids 2 1 ABP, PAP, CO, CI - Last Documented Arterial Blood Pressure 137/84 - Exam GENERAL DESCRIPTION: Middle-age male up in the chair RESPIRATORY SYSTEM: Unlabored breathing , decreased breath sounds at bases HEART: S1 S2 regular rate and rhythm , ABDOMEN: Soft , no tenderness EXTREMITIES: Diffuse swelling to bilateral lower extremity no wound or drainage - Labs CBC & Chem 7: 04/20/22 07:11 04/20/22 07:11 Labs: Abnormal Lab Results - Last 24 Hours (Table) 04/20/22 04/20/22 04/21/22 Range/Units 16:07 20:06 06:11 POC Glucose (mg/dL) 262 H 147 H 116 H (70-110) mg/dL 04/21/22 Range/Units 11:41 POC Glucose (mg/dL) 126 H (70-110) mg/dL Assessment and Plan (1) Cellulitis Current Visit: Yes Status: Acute Code(s): L03.90 - CELLULITIS, UNSPECIFIED SNOMED Code(s): 096867171 Plan: 1patient presented to hospital with acute respiratory failure currently on the ventilator likely multifactorial in this patient with underlying COPD and not concerning for increased swelling to bilateral lower extremity and some superficial ulceration and redness concerning for possible cellulitis with local culture not showing gram-negative and present to MRSA. 2positive blood culture with gram-positive cocci finalized for staph epi likely contamination, vancomycin has been discontinued 3-patient did have improvement in bilateral lower extremity swelling and redness currently and the patient inflammatory markers have normalized , patient has received adequate antibiotic therapy and we will continue to monitor the patient closely off antibiotics 4leukocytosis possibly reactive to steroids, steroid dose has been cut back and the patient white count is down to 17.8 as of yesterday, we will recheck his CBC and inflammatory markers with a.m. labs and continue supportive care Time with Patient: Less than 30
[2022-04-21 16:47] LABS: Glucose,Whole Blood 136 mg/dL (70-110)
[2022-04-21 20:20] LABS: Glucose,Whole Blood 133 mg/dL (70-110)
--- NOTE | 2022-04-21 21:31 | P.PN ---
Subjective This is a 56-year-old male who is being monitored in the intensive care unit secondary to acute hypoxic respiratory failure as well as acute CHF exa cerbation. Patient found to be in atrial fibrillation with rapid ventricular rate post intubation. The patient is currently intubated with FiO2 50%, current oxygen saturations 89%. Cardizem gtt weaned yesterday, he is on oral cardizem. Chest x-ray this morning showing pulmonary vascular congestion and bilateral pleural effusions correlate for congestive heart failure. Sodium stable at 137, creatinine is trending down at 1.68, peaked yesterday at 1.74. Infectious disease has been consulted for wound cultures positive for presumptive MRSA and gram negative bacilli to the left leg and is currently maintained on IV cefepime and IV vancomycin pending finalized cultures. He continues on IV Lasix every 12, IV steroids 60 every 6 hours. 04/10/2022 Patient continues to be monitored in intensive care unit, on mechanical ventilator with FiO2 of 50%. Remains tachycardic in the 110-120s. He also had temperature of 100 this morning. Chest xray today showing congestive heart failure with likely associated effusions. Pneumonia not excluded. Patient started on lasix gtt yesterday afternoon, he has total of 3.8 L off in the last 24 hours, He is down 5 kg since yesterday, overall his weight is up since admission. Creatinine has improved today 1.59. Cultures are being repeated with concern of fever. He is being followed closely by pulmonary, cardiology, infectious disease. 04/11/2022 Patient is monitored closely in intensive care unit, he is currently intubated on mechanical ventilator with FiO2 of 50%. He has been maintained on lasix gtt currently at 5 with urine output of 8.7 L in the last 24 hours. He continues to be sedated with propofol. Wound culture has finalized to gram negative bacilli/MRSA/enterococcus and patient is being followed by infectious disease on IV cefepime. Blood cultures were taken yesterday and are showing gram positive cocci in clusters, IV vancomycin has been started today, and repeat blood cultures taken. Follow up chest xray today showing pulmonary vascular congestion with moderate effusions/atelectasis vs. consolidation. He is receiving enteral tube feedings with vital AF and blood sugars have been elevated in the 180s to 200s. For this novolog was increased to 2 units with scale every 6 hours and also levemir HS has been added for better glycemic control. Procalcitonin follow up 0.09. Creatinine is slightly increased today at 1.71. Patient remains in atrial fibrillation with elevated heart rate in the 130s, and continues on oral cardizem. T-max over night 100.1, and blood pressure 120/70s. Patient is being followed closely by cardiology, pulmonary photographic hand developer, and infectious disease services. 04/12/2022 Patient is evaluated in intensive care unit sitting up in chair. Patient was extubated yesterday around 1330. Currently he is on oxygen support with 6L nasal cannula saturation 93%. He denies chest pain, no shortness of breath. He is tolerating some liquid diet. He continues with negative fluid balance about -3.7 L in the last 24 hours and lasix gtt has been discontinued. IV lasix 40 mg every 12 hours has been started. Repeat chest xray from today showing persistent retrocardiac atelectasis and consolidation. Blood culture showing staph epi possibly a contaminent, repeat is pending. Continues on IV cefepime managed by infectious disease. Patient continues in atrial fibrillation with heart rate in the 140s, cardiology has increased oral cardizem and started patient on metoprolol today. Labs reviewed today showing white count 13.8, BUN 87, creatinine 1.46, blood glucose in the 180s. 04/13/2022 Patient lying in bed still complaining of from dyspnea with little cough and phlegm but no chest pain he still saturating 6 L per minute. remains on cefepime and prednisone 40 mg for his COPD and positive blood culture with staph epidermidis and coagulase-negative staph. While his wound culture is growing MRSA, pseudomonas, entero-cocci, ID team on the case. Also he is on Eliquis 5 mg. Troponin is mildly elevated but patient with no chest pain. Cardiology team on the case Also echocardiogram showed ejection fraction of 50-55% Chest x-ray showing mild CHF with right basal infiltrate. On examination he has decreased breath sounds in bilateral patellar ligament edema 2+ Patient states he is on 3 L of oxygen at home for his COPD and his magnet maker is Dr. Gregory Cisneros catheter in place with clear yellow urine 04/14/2022 Patient with no significant tachypnea at rest however is still on 67 oxygen liter per minute requirement which is similar to yesterday. He still has bilateral patellar like edema about 2+, there is mild evidence of cellulitis on his been treated with antibiotics with improvement. He confirms he is on 3 L oxygen at home. No other new complaints, his creatinine went up to 1.4 but carbon dioxide improved down to 44. He still have mild leukocytosis while on prednisone 40 mg. Slightly tachycardic. 04/15/2022 Patient is clinically doing well, his dyspnea improving. No chest pain. He is at 4 L/m of oxygen. At baseline he confirms he is a 3 L/m. Pulmonary team signed off. Role Player team have no further recommendation. Per ID team discontinue IV. Cefepime and keep monitoring. He require subacute rehab. reworker consulted Possible discharge in 24-48 hours 04/16/2022 pt is clinically doing well , he is medically stable and is cleared for discharge by all consultants. He is off antibiotics and doing well. His postoperative go to ECF upon discharge However patient looks severely depressed and patient and family requesting psychiatrist to evaluate the patient. We will hold discharge until seen by psychiatrist 04/18/2022 this is a follow-up note to: (please refer to the discharge summary note from yesterday 04/17/2022) Patient is supposed to be discharged yesterday and he was found stable by all consultants including psychiatrist, cinema or theatre manager, infectious disease team and magnet maker. However her discharge was held later on because patient got a gitated and has tried to follow-up his lines and Cisneros catheter. Seroquel 2 could not come and down. Patient was at risk at him on self. CT of the brain could not be done immediately because patient was so agitated. Patient received Haldol and he come down. CT of the brain is negative for acute processes. When I saw the patient in the morning he was sleeping in bed, looks comfortable not in distress, his examination is limited by his sleepiness. Cranial nerves are grossly intact. Pupils are equal and reactive to light. No asymmetry noted. Abdomen looks soft. And used as examination. Patient could not provide information secondary to above. I discussed the case with cinema or theatre manager for follow-up. Labs are reviewed. Checked with the nurse at evening time patient is starts waking up . He is, currently. says the patient woke up after the Haldol we are going to place him on the neuro check We will repeat labs in the morning. Based on his condition we will do further recommendation.He is breathing quietly and he looks at his baseline of 4 L/m 04/19/2022 Patient today is more awake although lethargic, he knows he isn't [facility] although thought first it's [facility]. However he is disoriented to time, person and he has no insight into his illness. He follows commands and looks calm. He denies any specific cause. His breathing is quiet and abdomen soft and no urinary complaints. His legs erythema is chronic and stable. No signs of cellulitis. Remains on Eliquis, prednisone is lowered to 30 mg as steroids can cause psychosis as well. Also patient has been using Dilaudid IV which also may contribute to confusion was stopped intravenous Dilaudid and started on Baldwin 5-325 when necessary. From pain medication also can cause confusion Discussed the case with psychiatry today, Zoloft and melatonin added and Zyprexa when necessary. Neurology team were consulted 04/20/2022 Patient is more oriented today, he knows in the hospital the day than the name of the president which is improvement compared to yesterday however he still have disoriented about his illness which is expected but patient is improving. Patient was started on Zoloft by psychiatrist for depression as well as melatonin which helped him sleep well last night. Neurologist also on the case, B12 is pending as well as folate BUN and ESR and further workup TSH is normal. Creatinine today is 1.4. Patient breathing is a stable Remains on Eliquis, prednisone 30 mg and oral Lasix. 04/21/2022 Patient is calm and pleasant. He denies any specific symptoms and his breathing is quiet. Antibiotic, prednisone x 30 and: This added and now his workup Patient by cleared by all consultants including cardiology, pulmonary, infectious disease, neurology and psychiatry and infectious disease Patient will benefit from ECF for rehab Objective - Vital Signs Vital signs: Vital Signs Temp 97.5 F L 04/21/22 16:21 Pulse 71 04/21/22 16:21 Resp 18 04/21/22 16:21 BP 144/83 04/21/22 16:21 Pulse Ox 97 04/21/22 19:48 FiO2 40 04/18/22 00:28 Intake & Output 04/21/22 04/21/22 04/22/22 06:59 18:59 06:59 Intake Total 1108 Balance 1108 Intake: IV 20 Invasive Line 9 20 Oral 1088 Other: Voiding Method Toilet Toilet # Voids 2 1 # Bowel Movements 1 ABP, PAP, CO, CI - Last Documented Arterial Blood Pressure 137/84 - Exam -GENERAL: The patient is more awake and alert to time place and person. Call. Patient has no acute distress. Well developed, well nourished. HEENT: Pupils are round and equally reacting to light. EOMI. No scleral icterus. No conjunctival pallor. Normocephalic, atraumatic. No pharyngeal erythema. No thyromegaly. CARDIOVASCULAR: S1 and S2 present. No murmurs, rubs, or gallops. PULMONARY: Chest is clear to auscultation, no wheezing . Mild basal crepitation ABDOMEN: Soft, nontender, nondistended, normoactive bowel sounds. No palpable organomegaly. MUSCULOSKELETAL: No joint swelling or deformity. EXTREMITIES: No cyanosis, clubbing, or pedal edema. NEUROLOGICAL: Gross neurological examination did not reveal any focal deficits. SKIN: No rashes. no petechiae. - Labs CBC & Chem 7: 04/20/22 07:11 04/20/22 07:11 Labs: Abnormal Lab Results - Last 24 Hours (Table) 04/21/22 04/21/22 04/21/22 Range/Units 06:11 11:41 16:45 POC Glucose (mg/dL) 116 H 126 H 136 H (70-110) mg/dL 04/21/22 Range/Units 20:18 POC Glucose (mg/dL) 133 H (70-110) mg/dL Assessment and Plan Assessment: AMS, mostly metabolic/toxic encephalopathy. Hysteroscopy contributing as well as pain medication. Rule out neurological causes Depression, associated with periods of agitation, improved with holdol. Patient started improving. Acute hypoxic respiratory failure secondary to acute diastolic CHF exacerbation and acute COPD exacerbation, extubated on 04/12/22, currently on 6L hi flow cannula. Atrial fibrillation rate with rapid ventricular rate on oral cardizem. And Eliquis Left lower extremity ulceration and possible cellulitis with culture showing presumptive MRSA/gram neg bacili Gram Positive bacteremia Hypertension Obstructive sleep apnea History of COPD, oxygen dependent History atrial flutter previous ablation Chronic lower extremity edema Former Smoker GI Prophylaxis Protonix DVT Prophylaxis Eliquis Full Code Plan: Patient is monitored closely in ICU, has been extubated on 04/12/22 Continue ANTIBIOTIC per ID team. Currently is not on antibiotics. Patient cleared by discharge by most consultants including pulmonary, cardiology psychiatry and infectious disease team Still neurologist on the case with workup is pending Continue with prednisone at a lower dose 30 mg DC Dilaudid. Add Baldwin Will benefit from ECF rehab upon discharge Monitor blood glucose DVT prophylaxis: Eliquis GI prophylaxis Pepcid Prognosis is guarded
[2022-04-21] MEDS: SERTRALINE 50 MG TAB PO SCH (22:16)
[2022-04-21] MEDS: MELATONIN 5 MG TABLET PO SCH (22:16)
[2022-04-21] MEDS: DILTIAZEM CD 120 MG CAP.ER.24H PO SCH (22:16)
[2022-04-21] MEDS: INSULIN DETEMIR (LEVEMIR) 100 UNIT/ML SYR SQ SCH (22:17)
[2022-04-22] MEDS: INSULIN ASPART (NovoLOG) 100 UNIT/ML VIAL SQ SCH ×8 (07:00→21:18)
[2022-04-22 07:01] LABS: Glucose,Whole Blood 106 mg/dL (70-110)
[2022-04-22] MEDS: predniSONE 10 MG TAB PO SCH (08:15)
[2022-04-22] MEDS: HYDROcodone/APAP 5-325MG 1 EACH TAB PO PRN ×2 (08:15→17:32)
[2022-04-22] MEDS: METOPROLOL TARTRATE 50 MG TAB PO SCH ×3 (08:15→21:17)
[2022-04-22] MEDS: FAMOTIDINE 20 MG TAB PO SCH ×2 (08:15→21:17)
[2022-04-22] MEDS: FUROSEMIDE 40 MG TAB PO SCH ×2 (08:15→17:31)
[2022-04-22] MEDS: APIXABAN 5 MG TAB PO SCH ×2 (08:16→21:17)
[2022-04-22] MEDS: metOLazone 5 MG TAB PO SCH (08:16)
[2022-04-22] MEDS: DILTIAZEM CD 180 MG CAP.ER.24H PO SCH (08:16)
[2022-04-22 09:51] LABS: ALT 94 U/L (4-49); AST 59 U/L (17-59); African American GFR (CKD) 56 (>60 ml/min/1.73 sqM); Albumin 4.3 g/dL (3.5-5.0); Alkaline Phosphatase 98 U/L (38-126); Anion Gap 11 mmol/L; Blood Urea Nitrogen 56 mg/dL (9-20); Calcium 8.5 mg/dL (8.4-10.2); Carbon Dioxide 38 mmol/L (22-30); Chloride 87 mmol/L (98-107); Glucose 182 mg/dL (74-99); Non-African American GFR(CKD) 48 (>60 ml/min/1.73 sqM); Sodium 136 mmol/L (137-145); Total Bilirubin 0.8 mg/dL (0.2-1.3)
[2022-04-22 09:54] LABS: Basophils # (A) 0.1 k/uL (0-0.2); Basophils % (A) 1 %; Eosinophils # (A) 0.2 k/uL (0-0.7); Eosinophils % (A) 2 %; HCT 53.5 % (39.0-53.0); HGB 17.3 gm/dL (13.0-17.5); Hypochromasia Slight; Lymphocytes # (A) 1.8 k/uL (1.0-4.8); Lymphocytes % (A) 13 %; MCH 28.3 pg (25.0-35.0); MCHC 32.3 g/dL (31.0-37.0); MCV 87.6 fL (80.0-100.0); Mean Platelet Volume 10.2; Monocytes # (A) 0.7 k/uL (0-1.0); Monocytes % (A) 5 %; Neutrophils # (A) 11.2 k/uL (1.3-7.7); Neutrophils % (A) 79 %; Platelet Count 114 k/uL (150-450); RBC 6.11 m/uL (4.30-5.90); RDW 14.7 % (11.5-15.5); WBC 14.2 k/uL (3.8-10.6)
[2022-04-22 10:11] LABS: C Reactive Protein <0.5 mg/dL (<1.0)
[2022-04-22 11:53] LABS: Glucose,Whole Blood 133 mg/dL (70-110)
--- NOTE | 2022-04-22 12:07 | P.PN ---
Subjective Progress Note Date: 04/22/22 Principal diagnosis: Acute hypoxic and hypercapnic respiratory failure secondary to acute diastolic congestive heart failure and acute exacerbation of COPD. 04/14/2022, the patient remains on 6 L of oxygen nasal cannula. Doing well. No specific complaints. Continues to diabetes and he remains in negative fluid balance. The fluid balance has been -2.2 L over the past 24 hours. The patient meanwhile has a white cell count of 13.3 hemoglobin 60.2. BUN is at 64 with a creatinine of 1.4 episode of numbness 136. He is currently on Lasix 40 mg by mouth twice a day and is also Zaroxolyn 5 mg by mouth daily. He is on a prednisone burst taper. Chest x-ray findings are stable. 04/15/2022, continues to produce excellent urine output and the patient is currently on 4 L O2 by nasal cannula. The patient is taking Zaroxolyn 5 mg by mouth daily the patient is taking Lasix 40 mg twice a day. He is sitting up in a chair. No cough. No sputum production. No chest masses or wheezing. He is also on a prednisone burst taper. He is also on anticoagulation. He got trans ferred out of the intensive care unit 48 hours ago. Tolerating his diet. Reevaluated today on 04/16/2022, patient is feeling better, breathing easier, continues to make significant amount of urine with diuretics. Patient is on 4 L nasal cannula, O2 sats is 94%, he does have BiPAP at bedside. With IPAP of 16 and EPAP of 10. Remains on Lasix at 40 mg by mouth twice a day, Diamox 250 mg IV push every 12 hours, and Zaroxolyn at 5 mg daily. Patient remains on bronchodilators, also on prednisone 40 mg daily. Patient is also on eliquis and diltiazem. Electrolytes are normal however his bicarb is 44 BUN is 62 creatinine of 1.29. Reevaluated today on 04/22/22, patient has not been discharged, he has been cleared by many consultants. He is undergoing workup by neurology for metabolic encephalopathy, patient is doing great today, does not seem to be encephalopathic. He is in no distress, he is only on 1 L nasal cannula, patient did great over the last couple of weeks. Again the patient is to go to [facility] for rehab. Continues to have BiPAP at bedside, but does not seem to require it ex cept only at night. Labs are unremarkable. His bicarb is 38, BUN is 56 creatinine 1.56. Patient responded quite well to diuretics Objective - Vital Signs Vital signs: Vital Signs Temp 97.5 F L 04/22/22 07:35 Pulse 81 04/22/22 07:36 Resp 17 04/22/22 07:36 BP 144/79 04/22/22 07:35 Pulse Ox 95 04/22/22 07:35 FiO2 40 04/22/22 04:02 Intake & Output 04/21/22 04/22/22 04/22/22 18:59 06:59 18:59 Intake Total 1108 250 Output Total 150 Balance 1108 -150 250 Intake: IV 20 10 Invasive Line 10 10 Invasive Line 9 20 Oral 1088 240 Output: Urine 150 Other: Voiding Method Toilet Toilet Toilet Urinal Urinal # Voids 1 1 1 # Bowel Movements 1 ABP, PAP, CO, CI - Last Documented Arterial Blood Pressure 137/84 - Exam Physical Exam: Revealed 67-year-old white male, obese, on 1 L nasal cannula Head: Atraumatic, normocephalic. HEENT:[Neck is supple.] [No neck masses.] [No thyromegaly.] [No JVD.] Chest: [Clear throughout no crackles or rhonchi or wheezes Cardiac Exam: [Normal S1 and S2, no S3 gallop, no murmur.] Abdomen: [Soft, nontender, no megaly, no rebound, no guarding, normal bowel sounds.] Extremities: [No clubbing, trace of bipedal edema, no cyanosis.] Neurological Exam: [No focal neurologic deficit.] Alert oriented 3. Psychiatric: Normal mood affect and normal mental status examination. Musculoskeletal: No deformities, and no limitation in range of motion - Labs CBC & Chem 7: 04/22/22 08:54 04/22/22 08:54 Labs: Abnormal Lab Results - Last 24 Hours (Table) 04/21/22 04/21/22 04/22/22 Range/Units 16:45 20:18 08:54 WBC 14.2 H (3.8-10.6) k/uL RBC 6.11 H (4.30-5.90) m/uL Hct 53.5 H (39.0-53.0) % Plt Count 114 L (150-450) k/uL Neutrophils # 11.2 H (1.3-7.7) k/uL Sodium (137-145) mmol/L Chloride (98-107) mmol/L Carbon Dioxide (22-30) mmol/L BUN (9-20) mg/dL Creatinine (0.66-1.25) mg/dL Glucose (74-99) mg/dL POC Glucose (mg/dL) 136 H 133 H (70-110) mg/dL ALT (4-49) U/L 04/22/22 04/22/22 Range/Units 08:54 11:49 WBC (3.8-10.6) k/uL RBC (4.30-5.90) m/uL Hct (39.0-53.0) % Plt Count (150-450) k/uL Neutrophils # (1.3-7.7) k/uL Sodium 136 L (137-145) mmol/L Chloride 87 L (98-107) mmol/L Carbon Dioxide 38 H (22-30) mmol/L BUN 56 H (9-20) mg/dL Creatinine 1.56 H (0.66-1.25) mg/dL Glucose 182 H (74-99) mg/dL POC Glucose (mg/dL) 133 H (70-110) mg/dL ALT 94 H (4-49) U/L Assessment and Plan Assessment: Impression: Acute hypoxic and hypercapnic respiratory failure, multifactorial. Acute diastolic congestive heart failure. Acute exacerbation of COPD. Atrial fibrillation with RVR. Morbid obesity. Severe underlying COPD, FEV1 presumably 22% of the predicted Chronic cor pulmonale Former smoker Recommendation: Continue diuretics Continue oxygen and titrate accordingly Continue to monitor fluid status strict I's and O's BiPAP at night. Continue prednisone burst and taper on outpatient basis. Continue incentive spirometry Cleared for discharge again once cleared by neurology Consider ECF for rehabilitation Will follow as Time with Patient: Less than 30
[2022-04-22 16:47] LABS: Glucose,Whole Blood 160 mg/dL (70-110)
--- NOTE | 2022-04-22 17:08 | P.PN ---
Subjective This is a 56-year-old male who is being monitored in the intensive care unit secondary to acute hypoxic respiratory failure as well as acute CHF exa cerbation. Patient found to be in atrial fibrillation with rapid ventricular rate post intubation. The patient is currently intubated with FiO2 50%, current oxygen saturations 89%. Cardizem gtt weaned yesterday, he is on oral cardizem. Chest x-ray this morning showing pulmonary vascular congestion and bilateral pleural effusions correlate for congestive heart failure. Sodium stable at 137, creatinine is trending down at 1.68, peaked yesterday at 1.74. Infectious disease has been consulted for wound cultures positive for presumptive MRSA and gram negative bacilli to the left leg and is currently maintained on IV cefepime and IV vancomycin pending finalized cultures. He continues on IV Lasix every 12, IV steroids 60 every 6 hours. 04/10/2022 Patient continues to be monitored in intensive care unit, on mechanical ventilator with FiO2 of 50%. Remains tachycardic in the 110-120s. He also had temperature of 100 this morning. Chest xray today showing congestive heart failure with likely associated effusions. Pneumonia not excluded. Patient started on lasix gtt yesterday afternoon, he has total of 3.8 L off in the last 24 hours, He is down 5 kg since yesterday, overall his weight is up since admission. Creatinine has improved today 1.59. Cultures are being repeated with concern of fever. He is being followed closely by pulmonary, cardiology, infectious disease. 04/11/2022 Patient is monitored closely in intensive care unit, he is currently intubated on mechanical ventilator with FiO2 of 50%. He has been maintained on lasix gtt currently at 5 with urine output of 8.7 L in the last 24 hours. He continues to be sedated with propofol. Wound culture has finalized to gram negative bacilli/MRSA/enterococcus and patient is being followed by infectious disease on IV cefepime. Blood cultures were taken yesterday and are showing gram positive cocci in clusters, IV vancomycin has been started today, and repeat blood cultures taken. Follow up chest xray today showing pulmonary vascular congestion with moderate effusions/atelectasis vs. consolidation. He is receiving enteral tube feedings with vital AF and blood sugars have been elevated in the 180s to 200s. For this novolog was increased to 2 units with scale every 6 hours and also levemir HS has been added for better glycemic control. Procalcitonin follow up 0.09. Creatinine is slightly increased today at 1.71. Patient remains in atrial fibrillation with elevated heart rate in the 130s, and continues on oral cardizem. T-max over night 100.1, and blood pressure 120/70s. Patient is being followed closely by cardiology, pulmonary treating inspector, and infectious disease services. 04/12/2022 Patient is evaluated in intensive care unit sitting up in chair. Patient was extubated yesterday around 1330. Currently he is on oxygen support with 6L nasal cannula saturation 93%. He denies chest pain, no shortness of breath. He is tolerating some liquid diet. He continues with negative fluid balance about -3.7 L in the last 24 hours and lasix gtt has been discontinued. IV lasix 40 mg every 12 hours has been started. Repeat chest xray from today showing persistent retrocardiac atelectasis and consolidation. Blood culture showing staph epi possibly a contaminent, repeat is pending. Continues on IV cefepime managed by infectious disease. Patient continues in atrial fibrillation with heart rate in the 140s, cardiology has increased oral cardizem and started patient on metoprolol today. Labs reviewed today showing white count 13.8, BUN 87, creatinine 1.46, blood glucose in the 180s. 04/13/2022 Patient lying in bed still complaining of from dyspnea with little cough and phlegm but no chest pain he still saturating 6 L per minute. remains on cefepime and prednisone 40 mg for his COPD and positive blood culture with staph epidermidis and coagulase-negative staph. While his wound culture is growing MRSA, pseudomonas, entero-cocci, ID team on the case. Also he is on Eliquis 5 mg. Troponin is mildly elevated but patient with no chest pain. Cardiology team on the case Also echocardiogram showed ejection fraction of 50-55% Chest x-ray showing mild CHF with right basal infiltrate. On examination he has decreased breath sounds in bilateral patellar ligament edema 2+ Patient states he is on 3 L of oxygen at home for his COPD and his floor person is Dr. Gregory Cisneros catheter in place with clear yellow urine 04/14/2022 Patient with no significant tachypnea at rest however is still on 67 oxygen liter per minute requirement which is similar to yesterday. He still has bilateral patellar like edema about 2+, there is mild evidence of cellulitis on his been treated with antibiotics with improvement. He confirms he is on 3 L oxygen at home. No other new complaints, his creatinine went up to 1.4 but carbon dioxide improved down to 44. He still have mild leukocytosis while on prednisone 40 mg. Slightly tachycardic. 04/15/2022 Patient is clinically doing well, his dyspnea improving. No chest pain. He is at 4 L/m of oxygen. At baseline he confirms he is a 3 L/m. Pulmonary team signed off. Form Carpenter team have no further recommendation. Per ID team discontinue IV. Cefepime and keep monitoring. He require subacute rehab. show worker consulted Possible discharge in 24-48 hours 04/16/2022 pt is clinically doing well , he is medically stable and is cleared for discharge by all consultants. He is off antibiotics and doing well. His postoperative go to ECF upon discharge However patient looks severely depressed and patient and family requesting psychiatrist to evaluate the patient. We will hold discharge until seen by psychiatrist 04/18/2022 this is a follow-up note to: (please refer to the discharge summary note from yesterday 04/17/2022) Patient is supposed to be discharged yesterday and he was found stable by all consultants including psychiatrist, technical sales specialist, infectious disease team and floor person. However her discharge was held later on because patient got a gitated and has tried to follow-up his lines and Cisneros catheter. Seroquel 2 could not come and down. Patient was at risk at him on self. CT of the brain could not be done immediately because patient was so agitated. Patient received Haldol and he come down. CT of the brain is negative for acute processes. When I saw the patient in the morning he was sleeping in bed, looks comfortable not in distress, his examination is limited by his sleepiness. Cranial nerves are grossly intact. Pupils are equal and reactive to light. No asymmetry noted. Abdomen looks soft. And used as examination. Patient could not provide information secondary to above. I discussed the case with technical sales specialist for follow-up. Labs are reviewed. Checked with the nurse at evening time patient is starts waking up . He is, currently. says the patient woke up after the Haldol we are going to place him on the neuro check We will repeat labs in the morning. Based on his condition we will do further recommendation.He is breathing quietly and he looks at his baseline of 4 L/m 04/19/2022 Patient today is more awake although lethargic, he knows he isn't [facility] although thought first it's [facility]. However he is disoriented to time, person and he has no insight into his illness. He follows commands and looks calm. He denies any specific cause. His breathing is quiet and abdomen soft and no urinary complaints. His legs erythema is chronic and stable. No signs of cellulitis. Remains on Eliquis, prednisone is lowered to 30 mg as steroids can cause psychosis as well. Also patient has been using Dilaudid IV which also may contribute to confusion was stopped intravenous Dilaudid and started on [place] 5-325 when necessary. From pain medication also can cause confusion Discussed the case with psychiatry today, Zoloft and melatonin added and Zyprexa when necessary. Neurology team were consulted 04/20/2022 Patient is more oriented today, he knows in the hospital the day than the name of the president which is improvement compared to yesterday however he still have disoriented about his illness which is expected but patient is improving. Patient was started on Zoloft by psychiatrist for depression as well as melatonin which helped him sleep well last night. Neurologist also on the case, B12 is pending as well as folate BUN and ESR and further workup TSH is normal. Creatinine today is 1.4. Patient breathing is a stable Remains on Eliquis, prednisone 30 mg and oral Lasix. 04/21/2022 Patient is calm and pleasant. He denies any specific symptoms and his breathing is quiet. Antibiotic, prednisone x 30 and: This added and now his workup Patient by cleared by all consultants including cardiology, pulmonary, infectious disease, neurology and psychiatry and infectious disease Patient will benefit from ECF for rehab 04/22/2022 Patient is clinically stable, sitting in chair eating his lunch, he is asymptomatic and calm and pleasant today Hemodynamically stable WBC 14,000, creatinine 1.5. He remains on oxygen via nasal cannula 3-4 L/m He was cleared for discharge by all consultants Delirium improved after stopping his Dilaudid and daughter and prednisone 30 mg Continue on Eliquis Planned for ECF for subacute rehab upon discharge Objective - Vital Signs Vital signs: Vital Signs Temp 97.5 F L 04/22/22 07:35 Pulse 81 04/22/22 07:36 Resp 17 04/22/22 07:36 BP 144/79 04/22/22 07:35 Pulse Ox 95 04/22/22 07:35 FiO2 40 04/22/22 04:02 Intake & Output 04/21/22 04/22/22 04/22/22 18:59 06:59 18:59 Intake Total 1108 250 Output Total 150 Balance 1108 -150 250 Intake: IV 20 10 Invasive Line 10 10 Invasive Line 9 20 Oral 1088 240 Output: Urine 150 Other: Voiding Method Toilet Toilet Toilet Urinal Urinal # Voids 1 1 1 # Bowel Movements 1 ABP, PAP, CO, CI - Last Documented Arterial Blood Pressure 137/84 - Exam -GENERAL: The patient is more awake and alert to time place and person. Call. Patient has no acute distress. Well developed, well nourished. HEENT: Pupils are round and equally reacting to light. EOMI. No scleral icterus. No conjunctival pallor. Normocephalic, atraumatic. No pharyngeal erythema. No thyromegaly. CARDIOVASCULAR: S1 and S2 present. No murmurs, rubs, or gallops. PULMONARY: Chest is clear to auscultation, no wheezing . Mild basal crepitation ABDOMEN: Soft, nontender, nondistended, normoactive bowel sounds. No palpable organomegaly. MUSCULOSKELETAL: No joint swelling or deformity. EXTREMITIES: No cyanosis, clubbing, or pedal edema. NEUROLOGICAL: Gross neurological examination did not reveal any focal deficits. SKIN: No rashes. no petechiae. - Labs CBC & Chem 7: 04/22/22 08:54 04/22/22 08:54 Labs: Abnormal Lab Results - Last 24 Hours (Table) 04/21/22 04/21/22 04/21/22 Range/Units 11:41 16:45 20:18 WBC (3.8-10.6) k/uL RBC (4.30-5.90) m/uL Hct (39.0-53.0) % Plt Count (150-450) k/uL Neutrophils # (1.3-7.7) k/uL Sodium (137-145) mmol/L Chloride (98-107) mmol/L Carbon Dioxide (22-30) mmol/L BUN (9-20) mg/dL Creatinine (0.66-1.25) mg/dL Glucose (74-99) mg/dL POC Glucose (mg/dL) 126 H 136 H 133 H (70-110) mg/dL ALT (4-49) U/L 04/22/22 04/22/22 Range/Units 08:54 08:54 WBC 14.2 H (3.8-10.6) k/uL RBC 6.11 H (4.30-5.90) m/uL Hct 53.5 H (39.0-53.0) % Plt Count 114 L (150-450) k/uL Neutrophils # 11.2 H (1.3-7.7) k/uL Sodium 136 L (137-145) mmol/L Chloride 87 L (98-107) mmol/L Carbon Dioxide 38 H (22-30) mmol/L BUN 56 H (9-20) mg/dL Creatinine 1.56 H (0.66-1.25) mg/dL Glucose 182 H (74-99) mg/dL POC Glucose (mg/dL) (70-110) mg/dL ALT 94 H (4-49) U/L Assessment and Plan Assessment: AMS, mostly metabolic/toxic encephalopathy. Hysteroscopy contributing as well as pain medication. Rule out neurological causes Depression, associated with periods of agitation, improved with holdol. Patient started improving. Acute hypoxic respiratory failure secondary to acute diastolic CHF exacerbation and acute COPD exacerbation, extubated on 04/12/22, currently on 6L hi flow cannula. Atrial fibrillation rate with rapid ventricular rate on oral cardizem. And Eliquis Left lower extremity ulceration and possible cellulitis with culture showing presumptive MRSA/gram neg bacili Gram Positive bacteremia Hypertension Obstructive sleep apnea History of COPD, oxygen dependent History atrial flutter previous ablation Chronic lower extremity edema Former Smoker GI Prophylaxis Protonix DVT Prophylaxis Eliquis Full Code Plan: Patient is monitored closely in ICU, has been extubated on 04/12/22 Continue ANTIBIOTIC per ID team. Currently is not on antibiotics. Patient cleared by discharge by most consultants including pulmonary, cardiology psychiatry and infectious disease team Still neurologist on the case with workup is pending Continue with prednisone at a lower dose 30 mg DC Dilaudid. Add [place] Will benefit from ECF rehab upon discharge Monitor blood glucose DVT prophylaxis: Eliquis GI prophylaxis Pepcid Prognosis is guarded
[2022-04-22 20:13] LABS: Glucose,Whole Blood 150 mg/dL (70-110)
[2022-04-22] MEDS: DILTIAZEM CD 120 MG CAP.ER.24H PO SCH (21:17)
[2022-04-22] MEDS: SERTRALINE 50 MG TAB PO SCH (21:17)
[2022-04-22] MEDS: MELATONIN 5 MG TABLET PO SCH (21:17)
[2022-04-22] MEDS: INSULIN DETEMIR (LEVEMIR) 100 UNIT/ML SYR SQ SCH (21:18)
--- NOTE | 2022-04-23 00:01 | P.PN ---
Subjective Progress Note Date: 04/22/22 Principal diagnosis: Positive cultures left leg and possible cellulitis Patient is a 56-year-old male with a past medical history significant for COPD presenting to the hospital 4 days ago for evaluation of difficulty in breathing patient symptom has been going on for a couple of weeks before presentation to the hospital and the patient did have difficulty maintaining his O2 sats patient is not getting intubated also noticed to have swelling to the lower simply with some erythema and superficial ulceration culture was showing presented to MRSA and gram-negative the patient was extubated afternoon of 04/11/2022 on today's evaluation that is 04/22/2022, the patient continues to be afebrile the patient is breathing comfortably on room air. The patient denies chest pain , patient did have occasional cough but no sputum production. Denies any nausea no vomiting no abdominal pain no diarrhea and denies pain to bilateral lower extremity Objective - Vital Signs Vital signs: Vital Signs Temp 98.2 F 04/22/22 12:31 Pulse 88 04/22/22 12:31 Resp 17 04/22/22 12:31 BP 136/76 04/22/22 12:31 Pulse Ox 98 04/22/22 15:29 FiO2 40 04/22/22 04:02 Intake & Output 04/21/22 04/22/22 04/22/22 18:59 06:59 18:59 Intake Total 1108 250 Output Total 150 Balance 1108 -150 250 Intake: IV 20 10 Invasive Line 10 10 Invasive Line 9 20 Oral 1088 240 Output: Urine 150 Other: Voiding Method Toilet Toilet Toilet Urinal Urinal # Voids 1 1 1 # Bowel Movements 1 ABP, PAP, CO, CI - Last Documented Arterial Blood Pressure 137/84 - Exam GENERAL DESCRIPTION: Middle-age male up in the chair RESPIRATORY SYSTEM: Unlabored breathing , decreased breath sounds at bases HEART: S1 S2 regular rate and rhythm , ABDOMEN: Soft , no tenderness EXTREMITIES: Diffuse swelling to bilateral lower extremity no wound or drainage - Labs CBC & Chem 7: 04/22/22 08:54 04/22/22 08:54 Labs: Abnormal Lab Results - Last 24 Hours (Table) 04/21/22 04/21/22 04/22/22 Range/Units 16:45 20:18 08:54 WBC 14.2 H (3.8-10.6) k/uL RBC 6.11 H (4.30-5.90) m/uL Hct 53.5 H (39.0-53.0) % Plt Count 114 L (150-450) k/uL Neutrophils # 11.2 H (1.3-7.7) k/uL Sodium (137-145) mmol/L Chloride (98-107) mmol/L Carbon Dioxide (22-30) mmol/L BUN (9-20) mg/dL Creatinine (0.66-1.25) mg/dL Glucose (74-99) mg/dL POC Glucose (mg/dL) 136 H 133 H (70-110) mg/dL ALT (4-49) U/L 04/22/22 04/22/22 Range/Units 08:54 11:49 WBC (3.8-10.6) k/uL RBC (4.30-5.90) m/uL Hct (39.0-53.0) % Plt Count (150-450) k/uL Neutrophils # (1.3-7.7) k/uL Sodium 136 L (137-145) mmol/L Chloride 87 L (98-107) mmol/L Carbon Dioxide 38 H (22-30) mmol/L BUN 56 H (9-20) mg/dL Creatinine 1.56 H (0.66-1.25) mg/dL Glucose 182 H (74-99) mg/dL POC Glucose (mg/dL) 133 H (70-110) mg/dL ALT 94 H (4-49) U/L Assessment and Plan (1) Cellulitis Current Visit: Yes Status: Acute Code(s): L03.90 - CELLULITIS, UNSPECIFIED SNOMED Code(s): 793450736 Plan: 1patient presented to hospital with acute respiratory failure currently on the ventilator likely multifactorial in this patient with underlying COPD and not concerning for increased swelling to bilateral lower extremity and some superficial ulceration and redness concerning for possible cellulitis with local culture not showing gram-negative and present to MRSA. 2positive blood culture with gram-positive cocci finalized for staph epi likely contamination, vancomycin has been discontinued 3-patient did have improvement in bilateral lower extremity swelling and redness currently and the patient inflammatory markers have normalized , patient has received adequate antibiotic therapy and we will continue to monitor the patient closely off antibiotics 4leukocytosis possibly reactive to steroids, steroid dose has been cut back and the patient white count is down to 14,000 today, patient did have a normal CRP and pro calcitonin on a blood draw this morning hence recommending no further antibiotic therapy at this point Time with Patient: Less than 30
--- NOTE | 2022-04-23 01:08 | P.PN ---
Subjective Progress Note Date: 04/22/22 Patient was seen for follow-up. Patient is sitting in the recliner. Offers no new complaints. His legs are still very red. Denies any headache or dizziness. Objective - Vital Signs Vital signs: Vital Signs Temp 98.2 F 04/22/22 12:31 Pulse 88 04/22/22 12:31 Resp 17 04/22/22 12:31 BP 136/76 04/22/22 12:31 Pulse Ox 93 L 04/22/22 12:31 FiO2 40 04/22/22 04:02 Intake & Output 04/21/22 04/22/22 04/22/22 18:59 06:59 18:59 Intake Total 1108 250 Output Total 150 Balance 1108 -150 250 Intake: IV 20 10 Invasive Line 10 10 Invasive Line 9 20 Oral 1088 240 Output: Urine 150 Other: Voiding Method Toilet Toilet Toilet Urinal Urinal # Voids 1 1 1 # Bowel Movements 1 ABP, PAP, CO, CI - Last Documented Arterial Blood Pressure 137/84 - Exam Patient is alert and oriented. He knows it is March and the year is 2021. He thinks the date is . He knows he is in [facility] in [place]. Muscle strength is normal in the arms and legs except hip flexion which is 5- bilaterally. No ataxia for [id number] testing. No ataxia. Sensations are equal with no neglect. - Labs CBC & Chem 7: 04/22/22 08:54 04/22/22 08:54 Labs: Abnormal Lab Results - Last 24 Hours (Table) 04/21/22 04/21/22 04/22/22 Range/Units 16:45 20:18 08:54 WBC 14.2 H (3.8-10.6) k/uL RBC 6.11 H (4.30-5.90) m/uL Hct 53.5 H (39.0-53.0) % Plt Count 114 L (150-450) k/uL Neutrophils # 11.2 H (1.3-7.7) k/uL Sodium (137-145) mmol/L Chloride (98-107) mmol/L Carbon Dioxide (22-30) mmol/L BUN (9-20) mg/dL Creatinine (0.66-1.25) mg/dL Glucose (74-99) mg/dL POC Glucose (mg/dL) 136 H 133 H (70-110) mg/dL ALT (4-49) U/L 04/22/22 04/22/22 Range/Units 08:54 11:49 WBC (3.8-10.6) k/uL RBC (4.30-5.90) m/uL Hct (39.0-53.0) % Plt Count (150-450) k/uL Neutrophils # (1.3-7.7) k/uL Sodium 136 L (137-145) mmol/L Chloride 87 L (98-107) mmol/L Carbon Dioxide 38 H (22-30) mmol/L BUN 56 H (9-20) mg/dL Creatinine 1.56 H (0.66-1.25) mg/dL Glucose 182 H (74-99) mg/dL POC Glucose (mg/dL) 133 H (70-110) mg/dL ALT 94 H (4-49) U/L Assessment and Plan Assessment: * Acute delirium, remarkably improved. * Gram-positive bacteremia * Probable corticosteroids (prednisone) also contributing to delirium. * Lower extremity cellulitis * COPD, CO2 retainer, oxygen dependent * Chronic lower extremity edema * Hypertension * Atrial fibrillation with rapid ventricular rate on anticoagulation. * Former tobacco use * Obesity Plan: * Patient's examination is completely nonfocal. Patient's clinical examination is consistent with delirium/metabolic encephalopathy. * Management of various medical conditions as per IM and other specialties. * B12 555, folate 10.80, TSH 2.54, ESR 2, CRP 0.6. All normal. Vitamin B1 level pending. * Continue Eliquis 5 mg twice a day for stroke prevention related to atrial fibrillation. * No other neurological workup indicated. Neurologically clear. Neurology will sign off. Please call neurology if any concerns.
[2022-04-23] MEDS: HYDROcodone/APAP 5-325MG 1 EACH TAB PO PRN ×2 (04:15→10:17)
[2022-04-23 05:49] LABS: Glucose,Whole Blood 172 mg/dL (70-110)
[2022-04-23] MEDS: INSULIN ASPART (NovoLOG) 100 UNIT/ML VIAL SQ SCH ×6 (06:38→18:08)
[2022-04-23 09:57] LABS: Calcium 8.8 mg/dL (8.4-10.2); Potassium 3.5 mmol/L (3.5-5.1)
[2022-04-23] MEDS: APIXABAN 5 MG TAB PO SCH (10:17)
[2022-04-23] MEDS: predniSONE 10 MG TAB PO SCH (10:17)
[2022-04-23] MEDS: metOLazone 5 MG TAB PO SCH (10:18)
[2022-04-23] MEDS: DILTIAZEM CD 180 MG CAP.ER.24H PO SCH (10:18)
[2022-04-23] MEDS: METOPROLOL TARTRATE 50 MG TAB PO SCH ×2 (10:18→18:08)
[2022-04-23] MEDS: FUROSEMIDE 40 MG TAB PO SCH ×2 (10:18→18:08)
[2022-04-23] MEDS: FAMOTIDINE 20 MG TAB PO SCH (10:18)
[2022-04-23 11:03] VITALS: RESP 17
[2022-04-23 11:45] LABS: Glucose,Whole Blood 119 mg/dL (70-110)
[2022-04-23 13:00] VITALS: PULSE 91; TEMP 97.5
--- NOTE | 2022-04-23 14:03 | P.PN ---
Subjective Progress Note Date: 04/23/22 Principal diagnosis: Respiratory failure. This is a 56-year-old male patient of positive Dr. Iverson as his primary care provider. He has a history of atrial fibrillation with previous cardioversion and ablation maintained on Eliquis, diastolic congestive heart failure, chronic obstructive pulmonary disease, chronic hypercapnic respiratory failure, obstructive sleep apnea maintained on BiPAP 20/16 along with oxygen at 2 L/m per nasal cannula. He follows with Dr. Gregory in our office. He also has a history of chronic tobacco dependence and morbid obesity with a BMI of 50. He presented to the emergency room yesterday with complaints of increasing shortness of breath over the past 1-2 weeks. He felt his home oxygen was possibly not working. It is a temporary 1. He is using. He had diffuse swelling including his legs and abdomen. Occasional cough. Some mild chest discomfort. Chest x-ray shows evidence of fluid volume overload bilateral infiltrates and congestive heart failure. He developed worsening shortness of breath and hypoxemia required intubation mechanical ventilator support late last night. He is seen today in consultation in the ICU. Current settings are assist-control mode with a rate of 26, tidal volume 450, FiO2 50% and a PEEP of 5. P O2 58, pCO2 62 pH 7.39. He is sedated on propofol 50 mcg/kg/m. 0.9 normal saline at 20 miles per hour. Requiring norepinephrine at 3.3 mcg/m. He is also on a Cardizem drip at 5 mg per hour for A. fib with RVR. Tube feedings will be initiated. White count 9.1. Hemoglobin 14.5. Platelets 294. Sodium 140. Potassium 4.9. Bicarb 35. BUN 37. Creatinine 1.13. Glucose 192. Influenza screen negative. COVID-19 screen negative. He's been initiated on Lasix 40 mg IV every 8 hours, IV Solu-Medrol, bronchodilators. The patient is seen today 04/07/2022 in follow-up in the intensive care unit. He remains on mechanical ventilator. Current settings are assist-control mode at a rate of 26, tidal volume 450, FiO2 50% and a PEEP of 5. Morning blood gases reveal a P O2 of 63. PCO2 58, pH 7.38. He has been having issues with atrial fibrillation with rapid ventricular response. He's been initiated on amiodarone drip at 1 mg/m. Cardizem drip at 15 mg per hour. He is requiring norepinephrine at 3 mcg/m. He is sedated on propofol at 40 mcg/kg/m. He has normal saline at 20 miles per hour. He is being nourished with vital HPI at 30 ML's per hour with a goal of 40 miles per hour. Chest x-ray reveals acute cardiopulmonary disease most consistent with congestive heart failure. No si gnificant change. Marked cardiomegaly. Blood culture reveals no growth. Wound culture of the left lower extremity pending. Sputum culture pending. White count 13.2. Hemoglobin 14.8. Sodium 139. Potassium 4.2. BUN 43. Creatinine 1.26. Pro-calcitonin pending. Glucose 186. He is continued on DuoNeb inhalations, IV diuretics, IV Solu-Medrol,. Anticoagulated with Eliquis. Remains on antibiotics in the form of cefazolin. Currently in a -1.1 L balance. Current weight 49.5 kg per metered squared. Progress note dated 04/08/2022. The patient is seen today in the intensive care unit, room 264. He remains on the mechanical ventilator. The patient is too unstable at this point for we aning. He remains on both Cardizem, and amiodarone. Ventilator settings include the volume assist control, rate 26, tidal volume 450, FiO2 50%, and PEEP of 5. Blood gases show pO2 of 62, pCO2 of 61, and a pH of 7.35. The patient is on propofol at 40 mcg/kg/m, normal saline at 20 mL an hour, Cardizem 15 mg an hour, and amiodarone at 1 mg/m. The patient's also getting vital high protein at 40 mL an hour, which is goal. White count 12.1, hemoglobin 14.6, hematocrit 47.5, and the count 215,000. Sodium 137, potassium 4.6, chlorides 94, CO2 31, anion gap 12, BUN 60, creatinine 1.1. Calcium is 8.3. Chest x-ray shows diffuse bilateral patchy opacities, with atelectasis, and pleural effusions. The small wound on the left leg showing evidence of gram-negative bacilli, and presumptive MRSA. ID will be consulted. Progress note dated 04/23/2022. The patient was last seen April 08, in the intensive care unit, room 264. At that time, the patient was intubated and mechanically ventilated. Currently, the patient's resting comfortably, in room 375. The patient's on 2 L. Saturations are 97%. He does use BiPAP intermittently, at nighttime. Today's laboratory data includes a sodium 135, potassium 3.5, chlorides 87, CO2 38, BUN 60, creatinine 1.58. Glucose is 109. Calcium 8.8. No recent chest x-ray. The patient is currently being evaluated for possible discharge to rehab facility, in [place], [place]. Objective - Vital Signs Vital signs: Vital Signs Temp 97.5 F L 04/23/22 12:40 Pulse 91 04/23/22 12:40 Resp 17 04/23/22 12:45 BP 118/70 04/23/22 12:40 Pulse Ox 96 04/23/22 12:45 FiO2 40 04/23/22 00:55 Intake & Output 04/22/22 04/23/22 04/23/22 18:59 06:59 18:59 Intake Total 940 240 246 Balance 940 240 246 Weight 139.5 kg Intake: IV 20 10 Invasive Line 10 20 10 Oral 920 240 236 Other: Voiding Method Toilet Toilet Toilet Urinal Urinal Urinal # Voids 1 2 ABP, PAP, CO, CI - Last Documented Arterial Blood Pressure 137/84 - Exam No acute distress, sitting at the bedside, on 2 L of oxygen, with saturations at 97%. HEENT examination is grossly unremarkable. Neck supple. Full range of motion. No adenopathy thyromegaly or neck vein distention. Cardiovascular examination reveals an irregular rhythm and rate. S1-S2 normal. No S3 or S4. No discernible murmur noted. Heart rate is 91 bpm. Lungs reveal mostly clear breath sounds. Minimal rhonchi. No wheezes or crackles. Saturations are 97% on 2 L. Abdomen soft, with bowel sounds. No masses or tenderness. Extremities are intact. No cyanosis or clubbing appreciated. Skin is without rash or lesion. Neurologic examination is brief but nonfocal. - Labs CBC & Chem 7: 04/22/22 08:54 04/23/22 09:31 Labs: Abnormal Lab Results - Last 24 Hours (Table) 1004/22/22 04/23/22 Range/Units 16:45 20:12 05:47 Sodium (137-145) mmol/L Chloride (98-107) mmol/L Carbon Dioxide (22-30) mmol/L BUN (9-20) mg/dL Creatinine (0.66-1.25) mg/dL Glucose (74-99) mg/dL POC Glucose (mg/dL) 160 H 150 H 172 H (70-110) mg/dL 04/23/22 04/23/22 Range/Units 09:31 11:43 Sodium 135 L (137-145) mmol/L Chloride 87 L (98-107) mmol/L Carbon Dioxide 38 H (22-30) mmol/L BUN 60 H (9-20) mg/dL Creatinine 1.58 H (0.66-1.25) mg/dL Glucose 109 H (74-99) mg/dL POC Glucose (mg/dL) 119 H (70-110) mg/dL Assessment and Plan Assessment: Acute hypoxemic respiratory failure secondary to acute diastolic congestive heart failure, and acute exacerbation of chronic obstructive pulmonary disease. Acute hypercapnic respiratory failure secondary to above. Atrial fibrillation with a rapid ventricular response, resolved. Morbid obesity with a BMI of 50 kg/m2. Obstructive sleep apnea, maintained on BiPAP along with 2 L of oxygen. Chronic obstructive pulmonary disease, oxygen dependent, FEV1 value 22% of predicted. Small left leg wound, with gram-negative bacilli/presumptive staph. Chronic cor pulmonale. Acute on chronic lower extremity edema secondary to right-sided heart failure/ cor pulmonale. Former smoker. Plan: Plan dated 04/08/2022. Labs, x-rays, and medications are reviewed. The patient is too unstable for a daily interruption of sedation, and spontaneous breathing trial. The patient remains on Cardizem at 15 mg an hour, and amiodarone, at 1 mg/m. The patient's pO2 is only 62. He is receiving tube feedings with vital high protein, at goal. The left leg wound, is showing evidence of gram-negative bacilli, and presumpti ve staph. We will ask for an infectious disease consultation. The patient continues on bronchodilators and Solu-Medrol. He remains on antibiotics. Additional recommendations and suggestions are forthcoming. Prognosis is certainly very guarded. Plan dated 04/23/2022. The patient has been in the hospital now for 18 days. He was actually here the last time I was on-call. The patient is currently on 2 L. We will attempt to wean him off oxygen. The patient otherwise doing reasonably well. He is currently being evaluated for possible placement, at a rehab facility/shelter, in [facility]. We will continue to follow make recommendations along the way. He is currently off all antibiotics. No additional recommendations are made. Prognosis is certainly guarded Time with Patient: Less than 30
[2022-04-23 16:46] LABS: Glucose,Whole Blood 157 mg/dL (70-110)
[2022-04-23 18:19] VITALS: BP 135/78
--- NOTE | 2022-04-24 22:00 | P.DS ---
Providers Date of admission: 04/05/22 17:34 Attending physician: Rashaad Peres Consults: 04/05/22 17:26 Consult Physician Routine Consulting Provider: Mark Maciel Consult Reason/Comments: copd, dyspnea Do you want consulting provider notified?: Yes 04/06/22 00:11 Consult Physician Stat Consulting Provider: Mark Maciel Consult Reason/Comments: ICU admit Do you want consulting provider notified?: Already Contacted 04/08/22 09:35 Consult Physician Routine Consulting Provider: Kamryn Galeana Consult Reason/Comments: Positive MRSA wound left leg Do you want consulting provider notified?: Yes 04/16/22 14:20 Consult Physician Urgent Consulting Provider: Uche Fabian Consult Reason/Comments: depression Do you want consulting provider notified?: Yes 04/16/22 14:40 Consult Physician Routine Consulting Provider: Moisés Wade Consult Reason/Comments: Depression/suicidal ideation Do you want consulting provider notified?: Yes 04/19/22 08:50 Consult Physician Stat Consulting Provider: Mark Phillips Consult Reason/Comments: confusion Do you want consulting provider notified?: Yes Primary care physician: [facility] Course: Final Diagnosis AMS, most likely acute delirium which has improved Depression, associated with periods of agitation, improved with holdol. Patient started improving. Acute hypoxic respiratory failure secondary to acute diastolic CHF exacerbation and acute COPD exacerbation, extubated on 04/12/22, currently on 2L nasal cannula which patient does wear at home. Atrial fibrillation rate with rapid ventricular rate on oral cardizem. And El iquis. Rate is currently controlled. Left lower extremity ulceration and possible cellulitis culture showing MRSA, enterococcus, pseudomonas completed antiobiotic therapy while inpatient with clinical improvement Gram Positive bacteremia with staph epi felt most likely a contaminent and patient will be monitored off antibiotics per infectious disease Hypertension Obstructive sleep apnea with BiPAP use History of COPD, oxygen dependent History atrial flutter previous ablation Chronic lower extremity edema Former Smoker GI Prophylaxis Protonix DVT Prophylaxis Eliquis Full Code Discharge Disposition Patient is discharged home with home care services and home PT in place. He was pending discharge to sub acute rehab however has refused rehab and would like to go home with rehab and assisstive devices have been supplied. Patient wears oxygen chronically and is back at baseline. No further recommendations for antibiotic therapy. He will follow up with Pulmonary services, cardiology, ne phrology, and primary care Dr. Iverson. He is also referred to the [facility] office for additional resources. He has [facility] home[facility] set up on [facility]. Repeat labs recommended in 2 to 3 days. Hold Metolazone and diamox for 2 days and resume on 04/26/2022 Hold lasix for one day and resume on 04/25/2022 Hospital Course This is a 56 year old male who follows with Dr. Iverson in the primary care setting. Medical history significant for atrial fibrillation/a flutter with cardioversion in the past, chronic diastolic heart failure, oxygen dependent COPD with chronic respiratory failure, obstructive sleep apnea with BiPAP use. He sees Dr Gregory int he office. He is maintained on eliquis. He has morbid obesity, and chronic nicotine dependence. He presents to the emergency room with complaints of difficulty breathing, respiratory distress, that has been on going for the last 1 to 2 weeks and possibly issues with his home oxygen. He had significant swelling in his legs, arms, and abdomen. Reports mild chest discomfort on admission. He was initially started on BiPAP in the ER however was then intubated and monitored on mechanical ventilator. He was found to be in atrial fibrillation with rapid ventricular rate and was also on cardizem gtt. He was found to be in acute diastolic heart failure and was diuresed with lasix and did require lasix gtt in intensive care unit. Patient was extubated and moved to the medical floor. There was concern for lower extremity cellulitis and patient had wound cultures done to the left leg which were positive for MRSA, pseudomonas, enterococcus. He was evaluated by infectious disease and maintained on IV antibiotics which have been discontinued on discharge as patient had clinically improved and labs improved. He was monitored closely this admission by pulmonary computator and cardiology services. Patient was treated for suspected positive blood culture, most likely contamination and he finished his treatment with no need for antibiotics per ID team on discharge Psychiatrist evaluated him for possible depression and he recommended maintaining start Wellbutrin, patient does not need inpatient psychiatric admission however outpatient follow-up with psychiatric is recommended. Patient was also evaluated by neurology for altered mental status and did have brain CT done showing minimal atrophy appropriate for age. No adverse change. Thought to be acute delirium which resolved. Patient back to baseline and he was cleared for discharge by all consultants. 04/23/2022 Patient evaluated today sitting on edge of bed. He is anxious for discharge home. He denies shortness of breath, no chest pain. Mentation is back to baseline. He is alert x3. Currently on 2L nasal cannula with oxygen saturation around 94%. Lungs are clear. He has been diuresed. He will discharge on oral lasix. Metolozone will be decreased. Also discharged on oral diamox. Labs today showing sodium 135, potassium 3.5, BUN 60, creatinine 1.58, blood glucose 150s, calcium 8.8. Most recent white count 14. He continues in atrial fibrillation however he is rate controlled. Medications have been adjusted. Recommendations as above. He is afebrile, blood pressure 135/78. Please see medication reconciliation for a list of current medication. Thank you for allowing us to participate in the care of this patient. Total time taken in discharge planning greater than 35 minutes. The impression and plan of care has been dictated by Meri Galvan, Nurse Practitioner as directed. Dr. Denisse MD I have performed a history and physical examination and medical decision making of this patient, discussed the same with the dictator, and agree with the dictators assessment and plan as written, documented as a scribe. Based on total visit time, I have performed more than 50% of this visit. Patient Condition at Discharge: Fair Plan - Discharge Summary Discharge Rx Participant: Yes New Discharge Prescriptions: New Ipratropium-Albuterol Nebulize [Duoneb 0.5 mg-3 mg/3 ml Soln] 3 ml INHALATION RT-Q2H PRN each PRN Reason: Shortness Of Breath Or Wheezing INSULIN ASPART (NovoLOG) [NovoLOG (formulary)] 0 unit SQ ACHS each Sertraline [Zoloft] 50 mg PO HS #30 tab Insulin Glargine,Hum.rec.anlog [Lantus Solostar Pen] 10 units SQ HS #2 each metOLazone 2.5 mg PO DAILY #30 tablet Diltiazem Cd [Cardizem CD] 120 mg PO HS cap Diltiazem Cd [Cardizem CD] 360 mg PO DAILY cap Furosemide [Lasix] 40 mg PO BID@0900,1600 tab Metoprolol Tartrate [Lopressor] 50 mg PO TID #0 tab INSULIN ASPART (NovoLOG) [NovoLOG (formulary)] 3 unit SQ ACHS each predniSONE 10 mg PO DIRECTED #40 tab acetaZOLAMIDE [Diamox] 250 mg PO DAILY #30 tablet Continue Sodium Chloride [Section] 1 spr EA NOSTRIL DAILY PRN PRN Reason: Allergy Symptoms Apixaban [Eliquis] 5 mg PO BID #60 tab Albuterol Sulfate [Proair Hfa] 2 puff INHALATION RT-Q4H PRN PRN Reason: Wheezing Fluticasone/Vilanterol [Breo Ellipta 100-25 Mcg Inhaler] 1 puff INHALATION RT-DAILY Budesonide/Glycopyr/Formoterol [Breztri Aerosphere Inhaler] 1 puff INHALATION RT-BID Discontinued Acetaminophen Tab [Tylenol Tab] 1,000 mg PO BID carvediloL [Coreg] 12.5 mg PO BID Furosemide [Lasix] 40 mg PO DAILY #30 tab Melatonin 5 mg PO HS Aspirin EC [Ecotrin Low Dose] 81 mg PO DAILY Sulfamethox-Tmp 800-160Mg [Bactrim DS 800-160 mg] 1 tab PO MOWEFR dilTIAZem HCL [dilTIAZem HCL 12Hr ER] 120 mg PO BID No Action Ubidecarenone [Coenzyme Q10] 200 mg PO DAILY Flaxseed Oil 1200mg 1 cap PO DAILY Discharge Medication List Apixaban [Eliquis] 5 mg PO BID #60 tab 05/13/21 [Rx] Albuterol Sulfate [Proair Hfa] 2 puff INHALATION RT-Q4H PRN 04/05/22 [History] Budesonide/Glycopyr/Formoterol [Breztri Aerosphere Inhaler] 1 puff INHALATION RT-BID 04/05/22 [History] Flaxseed Oil 1200mg 1 cap PO DAILY 04/05/22 [History] Fluticasone/Vilanterol [Breo Ellipta 100-25 Mcg Inhaler] 1 puff INHALATION RT- DAILY 04/05/22 [History] Sodium Chloride [Section] 1 spr EA NOSTRIL DAILY PRN 04/05/22 [History] Ubidecarenone [Coenzyme Q10] 200 mg PO DAILY 04/05/22 [History] Diltiazem Cd [Cardizem CD] 120 mg PO HS cap 04/17/22 [Rx] Diltiazem Cd [Cardizem CD] 360 mg PO DAILY cap 04/17/22 [Rx] Furosemide [Lasix] 40 mg PO BID@0900,1600 tab 04/17/22 [Rx] INSULIN ASPART (NovoLOG) [NovoLOG (formulary)] 0 unit SQ ACHS each 04/17/22 [Rx] INSULIN ASPART (NovoLOG) [NovoLOG (formulary)] 3 unit SQ ACHS each 04/17/22 [Rx] Ipratropium-Albuterol Nebulize [Duoneb 0.5 mg-3 mg/3 ml Soln] 3 ml INHALATION RT-Q2H PRN each 04/17/22 [Rx] Metoprolol Tartrate [Lopressor] 50 mg PO TID #0 tab 04/17/22 [Rx] predniSONE 10 mg PO DIRECTED #40 tab 04/17/22 [Rx] Insulin Glargine,Hum.rec.anlog [Lantus Solostar Pen] 10 units SQ HS #2 each 04/23/22 [Rx] Sertraline [Zoloft] 50 mg PO HS #30 tab 04/23/22 [Rx] acetaZOLAMIDE [Diamox] 250 mg PO DAILY #30 tablet 04/23/22 [Rx] metOLazone 2.5 mg PO DAILY #30 tablet 04/23/22 [Rx] Follow up Appointment(s)/Referral(s): Tonia Ramos MD [STAFF PHYSICIAN] - 1 Week (Office closed at time of Discharge) [facility] [REFERRING] - (Office closed at time of Discharge) Mark Maciel DO [Doctor of Osteopathic Medicine] - 1 Week (Office closed at time of Discharge) Wali Garcia DO [STAFF PHYSICIAN] - 1 Week (acute kidney injury ) Parish Iverson MD [Primary Care Provider] - 1-2 days (Office closed at time of Discharge) [facility], [NON-STAFF] - (Office closed at time of Discharge) Ambulatory/Diagnostic Orders: Basic Metabolic Panel [LAB.AMB] Time Frame: 2 Days, Location: None Selected Patient Instructions/Handouts: Heart Failure (DC), A-fib (Atrial Fibrillation) (DC), Cellulitis (ED), COPD (Chronic Obstructive Pulmonary Disease) (DC) Activity/Diet/Wound Care/Special Instructions: Heart Healthy Diet Activity as tolerated Hold Metolazone and diamox for 2 days and resume on 04/26/2022 Hold lasix for one day and resume on 04/25/2022 Repeat labs in 2 days outpatient Discharge/Stand Alone Forms: Who Do I Call?, Community Resources, Help In The Home, Outpatient Counseling, Personal [employer] Discharge Disposition: HOME WITH HOME HEALTH SERVICES
== END 2022-04-23 20:02 | disposition home health service (06) | DRG 291 ==
LOC: EC 13:55 → 3SCARD 17:34 → 2SICU 23:52 → 3SCARD 04-14 00:30
PROVIDERS: ADMIT Hospitalist; ATTEND Hospitalist
PROC: 5A1955Z Respiratory Ventilation, Greater than 96 Consecutive Hours (ICD-10-PCS; principal; 2022-04-05)
PROC: 0D9670Z Drainage of Stomach with Drainage Device, Via Natural or Artificial Opening (ICD-10-PCS; principal; 2022-04-05)
PROC: 4A133B1 Monitoring of Arterial Pressure, Peripheral, Percutaneous Approach (ICD-10-PCS; 2022-04-05)
PROC: 4A133J1 Monitoring of Arterial Pulse, Peripheral, Percutaneous Approach (ICD-10-PCS; 2022-04-05)
PROC: 03HY32Z Insertion of Monitoring Device into Upper Artery, Percutaneous Approach (ICD-10-PCS; 2022-04-05)
PROC: 0BH17EZ Insertion of Endotracheal Airway into Trachea, Via Natural or Artificial Opening (ICD-10-PCS; 2022-04-05)
PROC: 5A09357 Assistance with Respiratory Ventilation, Less than 24 Consecutive Hours, Continuous Positive Airway Pressure (ICD-10-PCS; 2022-04-05)
PROC: 3E033XZ Introduction of Vasopressor into Peripheral Vein, Percutaneous Approach (ICD-10-PCS; 2022-04-06)
PROC: 3E0G76Z Introduction of Nutritional Substance into Upper GI, Via Natural or Artificial Opening (ICD-10-PCS; 2022-04-06)
PROC: 02HV33Z Insertion of Infusion Device into Superior Vena Cava, Percutaneous Approach (ICD-10-PCS; 2022-04-09)
DX: I11.0 Hypertensive heart disease with heart failure (principal); G92.8 Other toxic encephalopathy; I50.33 Acute on chronic diastolic (congestive) heart failure; J96.21 Acute and chronic respiratory failure with hypoxia; J96.22 Acute and chronic respiratory failure with hypercapnia; J44.1 Chronic obstructive pulmonary disease with (acute) exacerbation; R78.81 Bacteremia; R45.851 Suicidal ideations; E87.3 Alkalosis; J45.901 Unspecified asthma with (acute) exacerbation; I48.92 Unspecified atrial flutter; I48.19 Other persistent atrial fibrillation; Z68.43 Body mass index [BMI] 50.0-59.9, adult; L03.115 Cellulitis of right lower limb; L03.116 Cellulitis of left lower limb; L97.829 Non-pressure chronic ulcer of other part of left lower leg with unspecified severity; J98.11 Atelectasis; E66.01 Morbid (severe) obesity due to excess calories; I27.29 Other secondary pulmonary hypertension; I27.81 Cor pulmonale (chronic); I83.028 Varicose veins of left lower extremity with ulcer other part of lower leg; I50.82 Biventricular heart failure; Z20.822 Contact with and (suspected) exposure to COVID-19; Z28.310 Unvaccinated for COVID-19; G47.33 Obstructive sleep apnea (adult) (pediatric); G62.9 Polyneuropathy, unspecified; N50.89 Other specified disorders of the male genital organs; F32.9 Major depressive disorder, single episode, unspecified; B95.62 Methicillin resistant Staphylococcus aureus infection as the cause of diseases classified elsewhere; B95.2 Enterococcus as the cause of diseases classified elsewhere; B96.5 Pseudomonas (aeruginosa) (mallei) (pseudomallei) as the cause of diseases classified elsewhere; R77.8 Other specified abnormalities of plasma proteins; R74.01 Elevation of levels of liver transaminase levels; Z91.199 Patient's noncompliance with other medical treatment and regimen due to unspecified reason; Z99.81 Dependence on supplemental oxygen; Z79.01 Long term (current) use of anticoagulants; Z79.82 Long term (current) use of aspirin; Z79.51 Long term (current) use of inhaled steroids; Z79.899 Other long term (current) drug therapy; Z87.891 Personal history of nicotine dependence; Z96.641 Presence of right artificial hip joint; Z86.14 Personal history of Methicillin resistant Staphylococcus aureus infection; Z60.2 Problems related to living alone; Z71.3 Dietary counseling and surveillance
CPT/HCPCS: 36415; 36600; 70450; 71045; 74018; 80048; 80053; 80076; 81001; 82607; 82746; 82805; 83036; 83605; 83735; 83880; 84132; 84145; 84425; 84443; 84484; 85025; 85027; 85610; 85652; 85730; 86140; 87040; 87070; 87077; 87186; 87205; 87502; 87635; 93005; 93306; 94002; 94003; 94640; 94660; 96365; 96366; 96368; 96375; 99291

== ENCOUNTER 2022-07-09 12:51 | Inpatient (IN) | payer OTHER ==
--- NOTE | 2022-07-09 13:06 | ED ---
General Adult HPI - General Source: patient, RN notes reviewed Mode of arrival: wheelchair Limitations: no limitations <Rainer Morales - Last Filed: 07/09/22 13:04> <Edmundo Cervantes - Last Filed: 07/09/22 17:45> - General Stated complaint: swelling in legs Time Seen by Provider: 07/09/22 13:04 - History of Present Illness Initial comments: 57-year-old male presents emergency Department with chief complaint of shortness of breath. Patient states he has a history of COPD, CHF. Patient's and having increasing leg swelling, exertional dyspnea. Patient states is normally on oxygen does not have his oxygen with him currently Patient denies any fevers or chills no chest pain hestates that his legs are more swollen than usual. (Rainer Morales) This is a 57-year-old male presents emergency Department complaining shortness of breath and increased swelling to his legs feet and a little into his belly. Patient states he has history of smoking but he quit 1 year ago. Patient states he has a history of COPD and congestive heart pain. Patient states she's become so swollen that he is afraid to stand and is afraid to fall over and hurt something. Patient is requesting a Cisneros catheter was in the emergency d epartment because he cannot get up and urinate. Patient denies any recent fever chills or cough. Patient denies any headache patient denies lightheadedness dizziness or near syncopal episode. Patient denies any abdominal pain patient denies nausea vomiting diarrhea. (Edmundo Cervantes) - Related Data Home Medications Medication Instructions Recorded Confirmed Albuterol Sulfate [Proair Hfa] 2 puff INHALATION RT-Q4H PRN 04/05/22 07/09/22 Budesonide/Glycopyr/Formoterol 1 puff INHALATION RT-BID 04/05/22 07/09/22 [Breztri Aerosphere Inhaler] Losartan [Cozaar] 25 mg PO HS 07/09/22 07/09/22 Metoprolol Succinate (ER) [Toprol 50 mg PO DAILY 07/09/22 07/09/22 Xl] Pregabalin [Lyrica] 75 mg PO TID PRN 07/09/22 07/09/22 dilTIAZem HCL [dilTIAZem HCL 24Hr 360 mg PO DAILY 07/09/22 07/09/22 ER (LA)] dilTIAZem HCL [dilTIAZem HCL 24Hr 120 mg PO BID 07/09/22 07/09/22 ER (Xr)] hydrOXYzine pamoate 50 mg PO HS PRN 07/09/22 07/09/22 metOLazone [Zaroxolyn] 2.5 mg PO DAILY 07/09/22 07/09/22 Previous Rx's Medication Instructions Recorded Apixaban [Eliquis] 5 mg PO BID #60 tab 05/13/21 Furosemide [Lasix] 40 mg PO BID@0900,1600 tab 04/17/22 Ipratropium-Albuterol Nebulize 3 ml INHALATION RT-Q2H PRN each 04/17/22 [Duoneb 0.5 mg-3 mg/3 ml Soln] Sertraline [Zoloft] 50 mg PO HS #30 tab 04/23/22 acetaZOLAMIDE [Diamox] 250 mg PO DAILY #30 tablet 04/23/22 metOLazone 2.5 mg PO DAILY #30 tablet 04/23/22 Allergies Allergy/AdvReac Type Severity Reaction Status Date / Time No Known Allergies Allergy Verified 04/05/22 17:43 Review of Systems ROS Other: All systems not noted in ROS Statement are negative. <Rainer Morales - Last Filed: 07/09/22 13:04> ROS Other: All systems not noted in ROS Statement are negative. <Edmundo Cervantes - Last Filed: 07/09/22 17:45> ROS Statement: Those systems with pertinent positive or pertinent negative responses have been documented in the HPI. Past Medical History Past Medical History: Atrial Fibrillation, Asthma, Heart Failure, COPD, Sleep Apnea/CPAP/BIPAP History of Any Multi-Drug Resistant Organisms: None Reported Date of last positivie culture/infection: 04/05/22 MDRO Source:: Left Leg Past Surgical History: Hernia Repair, Joint Replacement, Orthopedic Surgery Additional Past Surgical History / Comment(s): rt hip, rt foot Past Anesthesia/Blood Transfusion Reactions: No Reported Reaction Past Psychological History: Depression Smoking Status: Former smoker <Rainer Morales - Last Filed: 07/09/22 13:04> General Exam Limitations: no limitations <Rainer Morales - Last Filed: 07/09/22 13:04> <Edmundo Cervantes - Last Filed: 07/09/22 17:45> - General Exam Comments Initial Comments: GENERAL: Patient is well-developed and well-nourished. Patient is nontoxic and well- hydrated and is in mild distress. ENT: Neck is soft and supple. No significant lymphadenopathy is noted. Oropharynx is clear. Moist mucous membranes. Neck has full range of motion without eliciting any pain. EYES: The sclera were anicteric and conjunctiva were pink and moist. Extraocular movements were intact and pupils were equal round and reactive to light. Eyelids were unremarkable. PULMONARY: Patient is crackles bilateral bases CARDIOVASCULAR: There is a regular rate and rhythm without any murmurs gallops or rubs. ABDOMEN: Soft and nontender with normal bowel sounds. No palpable organomegaly was noted. There is no palpable pulsatile mass. SKIN: Skin is clear with no lesions or rashes and otherwise unremarkable. NEUROLOGIC: Patient is alert and oriented x3. Cranial nerves II through XII are grossly intact. Motor and sensory are also intact. Normal speech, volume and content. Symmetrical smile. MUSCULOSKELETAL: Normal extremities with adequate strength and full range of motion. She has 2+ edema up to the thighs LYMPHATICS: No significant lymphadenopathy is noted PSYCHIATRIC: Normal psychiatric evaluation. (Edmundo Cervantes) Course Vital Signs 07/09/22 07/09/22 07/09/22 13:01 13:04 14:00 Temperature 97 F L Pulse Rate 94 83 85 Respiratory 24 22 20 Rate Blood Pressure 137/73 129/73 99/69 O2 Sat by Pulse 95 96 98 Oximetry 07/09/22 15:00 Temperature Pulse Rate 86 Respiratory 14 Rate Blood Pressure 114/66 O2 Sat by Pulse 98 Oximetry Medical Decision Making - Lab Data Result diagrams: 07/09/22 13:29 07/09/22 13:29 <Edmundo Cervantes - Last Filed: 07/09/22 17:45> - Medical Decision Making EKG was interpreted by myself. EKG shows atrial fibrillation 79 bpm QRS is under 37 QT interval 414 QTC is 449. Patient's EKG shows no ST segment el evation or depression. Was pt. sent in by a medical professional or institution (, PA, ELECTRONIC SEMICONDUCTOR PROCESSOR, urgent care, hospital, or [facility]...) When possible be specific @ -No Did you speak to anyone other than the patient for history (EMS, parent, family, police, friend...)? What history was obtained from this source @ -EMS gave quite a bit history as did the daughter Did you review nursing and triage notes (agree or disagree)? Why? @ -I reviewed and agree with nursing and triage notes Were old charts reviewed (outside hosp., previous admission, EMS record, old EK G, old radiological studies, urgent care reports/EKG's, [facility] records)? Report findings @ -No old charts were reviewed Differential Diagnosis (chest pain, altered mental status, abdominal pain women, abdominal pain men, vaginal bleeding, weakness, fever, dyspnea, syncope, headache, dizziness, GI bleed, back pain, seizure, CVA, palpatations, mental health)? @ -Differential Dyspnea: Coronary syndrome, arrhythmia, tamponade, asthma, COPD, pulmonary embolism, pneumonia, pneumothorax, pulmonary effusion, anaphylaxis, diabetic ketoacidosis, flailed chest, pulmonary contusion, diaphragmatic rupture, anemia, neuromuscular, this is not meant to be an all-inclusive list. EKG interpreted by me (3pts min.). @ -As above X-rays interpreted by me (1pt min.). @ -X x-ray was interpreted by myself shows pulmonary edema CT interpreted by me (1pt min.). @ -None done U/S interpreted by me (1pt. min.). @ -None done What testing was considered but not performed or refused? (CT, X-rays, U/S, labs)? Why? @ -None What meds were considered but not given or refused? Why? @ -None Did you discuss the management of the patient with other professionals (professionals i.e. , PA, ELECTRONIC SEMICONDUCTOR PROCESSOR, lab, RT, psych nurse, social science professor, tunnel elastic operator lockstitch, teacher, client sales and service officer, case technician)? Give summary @ -I spoke with the [facility] hospitalist agreed to admit the patient Was smoking cessation discussed for >3mins.? @ -No. Was critical care preformed (if so, how long)? @ -No Were there social determinants of health that impacted care today? How? (Homelessness, low income, unemployed, alcoholism, drug addiction, transportation, low edu. Level, literacy, decrease access to med. care, prison, rehab)? @ -No Was there de-escalation of care discussed even if they declined (Discuss DNR or withdrawal of care, Hospice)? DNR status @ -No What co-morbidities impacted this encounter? (DM, HTN, Smoking, COPD, CAD, Cancer, CVA, ARF, Chemo, Hep., AIDS, mental health diagnosis, sleep apnea, morbid obesity)? @ -Congestive heart failure Was patient admitted / discharged? Hospital course, mention meds given and route, prescriptions, significant lab abnormalities, going to OR and other pertinent info. @ -Patient will be admitted for cellulitis for pulmonary edema as well as significant peripheral edema to the point he cannot ambulate I spoke with pressure from his conscious agreed to admit the patient admitted the patient and I put the patient on Lasix on the floor. Patient did receive Lasix emergency department. Patient also had urinary retention in the emergency department and once we put a Cisneros catheter and we got over a liter of urine out Undiagnosed new problem with uncertain prognosis? @ -No Drug Therapy requiring intensive monitoring for toxicity (Heparin, Nitro, Insulin, Cardizem)? @ -No Were any procedures done? @ -No Diagnosis/symptom? @ -Pulmonary edema Acute, or Chronic, or Acute on Chronic? @ -Acute on chronic Uncomplicated (without systemic symptoms) or Complicated (systemic symptoms)? @ -Complicated Side effects of treatment? @ -No Exacerbation, Progression, or Severe Exacerbation? @ -No Poses a threat to life or bodily function? How? (Chest pain, [place], [place], pneumonia, PE, COPD, DKA, ARF, appy, cholecystitis, CVA, Diverticulitis, Homicidal, Suicidal, threat to staff... and all critical care pts) @ -No Diagnosis/symptom? @ -Significant peripheral edema Acute, or Chronic, or Acute on Chronic? @ -Acute on chronic Uncomplicated (without systemic symptoms) or Complicated (systemic symptoms)? @ -Uncomplicated Side effects of treatment? @ -none Exacerbation, Progression, or Severe Exacerbation] @ -no Poses a threat to life or bodily function? @ -no Diagnosis/symptom? @ -Urinary retention Acute, or Chronic, or Acute on Chronic? @ -Acute Uncomplicated (without systemic symptoms) or Complicated (systemic symptoms)? @ -Uncomplicated Side effects of treatment? @ -none Exacerbation, Progression, or Severe Exacerbation] @ -no Poses a threat to life or bodily function? @ -no (Edmundo Cervantes) - Lab Data Lab Results 07/09/22 07/09/22 07/09/22 Range/Units 13:29 13:29 13:29 WBC 8.8 (3.8-10.6) k/uL RBC 4.54 (4.30-5.90) m/uL Hgb 13.5 (13.0-17.5) gm/dL Hct 38.9 L (39.0-53.0) % MCV 85.7 (80.0-100.0) fL MCH 29.8 (25.0-35.0) pg MCHC 34.7 (31.0-37.0) g/dL RDW 14.6 (11.5-15.5) % Plt Count 275 (150-450) k/uL MPV 8.4 Neutrophils % 81 % Lymphocytes % 8 % Monocytes % 7 % Eosinophils % 2 % Basophils % 0 % Neutrophils # 7.1 (1.3-7.7) k/uL Lymphocytes # 0.7 L (1.0-4.8) k/uL Monocytes # 0.6 (0-1.0) k/uL Eosinophils # 0.1 (0-0.7) k/uL Basophils # 0.0 (0-0.2) k/uL PT 10.0 (9.0-12.0) sec INR 0.9 (<1.2) APTT 27.6 (22.0-30.0) sec Sodium 140 (137-145) mmol/L Potassium 4.9 (3.5-5.1) mmol/L Chloride 98 (98-107) mmol/L Carbon Dioxide 30 (22-30) mmol/L Anion Gap 12 mmol/L BUN 87 H (9-20) mg/dL Creatinine 1.73 H (0.66-1.25) mg/dL Est GFR (CKD-EPI)AfAm 49 (>60 ml/min/1.73 sqM) Est GFR (CKD-EPI)NonAf 42 (>60 ml/min/1.73 sqM) Glucose 120 H (74-99) mg/dL Calcium 8.8 (8.4-10.2) mg/dL Magnesium 2.7 H (1.6-2.3) mg/dL Total Bilirubin 0.5 (0.2-1.3) mg/dL AST 48 (17-59) U/L ALT 34 (4-49) U/L Alkaline Phosphatase 109 (38-126) U/L Troponin I (0.000-0.034) ng/mL NT-Pro-B Natriuret Pep pg/mL Total Protein 7.3 (6.3-8.2) g/dL Albumin 4.1 (3.5-5.0) g/dL 07/09/22 07/09/22 Range/Units 13:29 13:29 WBC (3.8-10.6) k/uL RBC (4.30-5.90) m/uL Hgb (13.0-17.5) gm/dL Hct (39.0-53.0) % MCV (80.0-100.0) fL MCH (25.0-35.0) pg MCHC (31.0-37.0) g/dL RDW (11.5-15.5) % Plt Count (150-450) k/uL MPV Neutrophils % % Lymphocytes % % Monocytes % % Eosinophils % % Basophils % % Neutrophils # (1.3-7.7) k/uL Lymphocytes # (1.0-4.8) k/uL Monocytes # (0-1.0) k/uL Eosinophils # (0-0.7) k/uL Basophils # (0-0.2) k/uL PT (9.0-12.0) sec INR (<1.2) APTT (22.0-30.0) sec Sodium (137-145) mmol/L Potassium (3.5-5.1) mmol/L Chloride (98-107) mmol/L Carbon Dioxide (22-30) mmol/L Anion Gap mmol/L BUN (9-20) mg/dL Creatinine (0.66-1.25) mg/dL Est GFR (CKD-EPI)AfAm (>60 ml/min/1.73 sqM) Est GFR (CKD-EPI)NonAf (>60 ml/min/1.73 sqM) Glucose (74-99) mg/dL Calcium (8.4-10.2) mg/dL Magnesium (1.6-2.3) mg/dL Total Bilirubin (0.2-1.3) mg/dL AST (17-59) U/L ALT (4-49) U/L Alkaline Phosphatase (38-126) U/L Troponin I <0.012 (0.000-0.034) ng/mL NT-Pro-B Natriuret Pep 1120 pg/mL Total Protein (6.3-8.2) g/dL Albumin (3.5-5.0) g/dL Disposition <Rainer Morales - Last Filed: 07/09/22 13:04> Time of Disposition: 17:44 <Edmundo Cervantes - Last Filed: 07/09/22 17:45> Clinical Impression: Urinary retention, Pulmonary edema, Pedal edema, Unable to ambulate Disposition: ADMITTED IP TO THIS HOSP Referrals: Parish Iverson MD [Primary Care Provider] - 1-2 days
[2022-07-09] MEDS ORDERED: FUROSEMIDE 10 MG/ML 10 ML VIAL IV STA (13:16)
[2022-07-09 13:40] LABS: Basophils % (A) 0 %; Eosinophils # (A) 0.1 k/uL (0-0.7); Eosinophils % (A) 2 %; HCT 38.9 % (39.0-53.0); HGB 13.5 gm/dL (13.0-17.5); Lymphocytes # (A) 0.7 k/uL (1.0-4.8); Lymphocytes % (A) 8 %; MCH 29.8 pg (25.0-35.0); MCHC 34.7 g/dL (31.0-37.0); MCV 85.7 fL (80.0-100.0); Mean Platelet Volume 8.4; Monocytes # (A) 0.6 k/uL (0-1.0); Monocytes % (A) 7 %; Neutrophils # (A) 7.1 k/uL (1.3-7.7); Neutrophils % (A) 81 %; Platelet Count 275 k/uL (150-450); RBC 4.54 m/uL (4.30-5.90); RDW 14.6 % (11.5-15.5); WBC 8.8 k/uL (3.8-10.6)
[2022-07-09 13:50] LABS: INR 0.9 (<1.2); Partial Thromboplastin Time 27.6 sec (22.0-30.0)
[2022-07-09 14:06] LABS: Albumin 4.1 g/dL (3.5-5.0); Calcium 8.8 mg/dL (8.4-10.2); Magnesium 2.7 mg/dL (1.6-2.3); Potassium 4.9 mmol/L (3.5-5.1); Total Bilirubin 0.5 mg/dL (0.2-1.3); Total Protein 7.3 g/dL (6.3-8.2)
--- NOTE | 2022-07-09 14:28 | XR ---
EXAMINATION TYPE: XR chest 2V DATE OF EXAM: 07/09/2022 COMPARISON: 04/14/2010 TECHNIQUE: PA and lateral views submitted. HISTORY: Difficulty breathing FINDINGS: Heart is enlarged there are subsegmental changes at the right lung base. No pneumothorax. Arthropathy of the shoulders. Hypertrophic degenerative changes spine. Hyperinflation suggests the IMPRESSION: 1. Cardiomegaly with basilar atelectasis favored over pneumonia. Correlate for mild central venous co ngestion or interstitial pneumonitis.
[2022-07-09] MEDS ORDERED: KETOROLAC 15 MG/ML 1 ML VIAL IVP STA (14:51)
[2022-07-09] MEDS ORDERED: ALBUTEROL HFA INHALER INHALATION PRN (16:38)
[2022-07-09] MEDS: APIXABAN 5 MG TAB PO SCH (20:17)
[2022-07-09] MEDS: FUROSEMIDE 10 MG/ML 4 ML VIAL IV SCH (20:18)
[2022-07-09] MEDS ORDERED: hydrOXYzine pamoate 25 MG CAP PO PRN (20:34)
[2022-07-09] MEDS ORDERED: HYDROmorphone 0.5 MG/0.5 ML SYRINGE IVP PRN (20:36)
[2022-07-09] MEDS: HYDROcodone/APAP 5-325MG 1 EACH TAB PO PRN (21:01)
[2022-07-09] MEDS: LOSARTAN 25 MG TAB PO SCH (21:02)
[2022-07-09] MEDS: DILTIAZEM CD 120 MG CAP.ER.24H PO SCH (21:02)
[2022-07-09] MEDS: SYMBICORT 160-4.5 MCG INHALER INHALATION SCH (21:38)
[2022-07-09] MEDS: IPRATROPIUM 0.5 MG/2.5 ML NEBU INHALATION SCH (21:38)
[2022-07-10] MEDS: HYDROcodone/APAP 5-325MG 1 EACH TAB PO PRN ×3 (04:52→18:24)
[2022-07-10] MEDS: FUROSEMIDE 10 MG/ML 4 ML VIAL IV SCH ×3 (06:30→20:44)
[2022-07-10] MEDS: SYMBICORT 160-4.5 MCG INHALER INHALATION SCH ×2 (07:35→19:28)
[2022-07-10] MEDS: IPRATROPIUM 0.5 MG/2.5 ML NEBU INHALATION SCH ×4 (07:35→19:28)
[2022-07-10 07:56] LABS: Basophils # (A) 0.1 k/uL (0-0.2); Basophils % (A) 1 %; Eosinophils # (A) 0.2 k/uL (0-0.7); Eosinophils % (A) 2 %; HCT 38.6 % (39.0-53.0); Lymphocytes % (A) 10 %; MCH 28.8 pg (25.0-35.0); MCHC 33.6 g/dL (31.0-37.0); MCV 85.7 fL (80.0-100.0); Mean Platelet Volume 8.6; Monocytes # (A) 0.7 k/uL (0-1.0); Monocytes % (A) 7 %; Neutrophils % (A) 79 %; Platelet Count 289 k/uL (150-450); RDW 14.5 % (11.5-15.5)
[2022-07-10 08:13] LABS: Calcium 8.7 mg/dL (8.4-10.2); Potassium 4.5 mmol/L (3.5-5.1)
[2022-07-10] MEDS: PREGABALIN 75 MG CAP PO PRN (09:26)
[2022-07-10] MEDS: DILTIAZEM CD 180 MG CAP.ER.24H PO SCH (09:26)
[2022-07-10] MEDS: metOLazone 2.5 MG TAB PO SCH (09:26)
[2022-07-10] MEDS: acetaZOLAMIDE 250 MG TAB PO SCH (09:26)
[2022-07-10] MEDS: APIXABAN 5 MG TAB PO SCH ×2 (09:26→20:44)
[2022-07-10] MEDS: DILTIAZEM CD 120 MG CAP.ER.24H PO SCH ×2 (09:26→20:44)
[2022-07-10] MEDS: METOPROLOL SUCCINATE (ER) 50 MG TAB.ER.24H PO SCH (09:26)
--- NOTE | 2022-07-10 10:06 | P.CRDCN ---
History of Present Illness Consult date: 07/10/22 History of present illness: HISTORY OF PRESENT ILLNESS: This is a 57-year-old male with a past medical history significant for persistent atrial fibrillation, atrial flutter, congestive heart failure, hypertension, and leg wounds with MSSA. Patient follows in the office with Dr. Dickerson. We have been asked to see the patient in consultation for congestive heart failure. Patient examined at the bedside. Patient states over the past few days he has become more short of breath and noticed increased lower extremity edema. He states he has been taking his lasix. He states his ankles have been hurting so bad that he is having a hard time walking and getting to the bathroom. The patient denies any chest pain or pressure. The patient was found to be in CHF and was started on IV lasix. He reports that he is scheduled for a colonoscopy at the end of the month with Dr. Ryder. He is scheduled for an outpatient stress test on . * EKG reveals atrial fibrillation with controlled ventricular rate * Chest xray cardiomegaly with basilar atelectasis favored over pneumonia. Correlate for mild central venous congestion or interstitial pneumonitis.. * Laboratory data: WBC 10.0. Hemoglobin 13.0. Platelet count 289. Sodium 137. Potassium 4.5. BUN 80. Creatinine 1.64. Troponin negative 1. ProBNP 1120. * Current home cardiac medications include Zaroxolyn 2.5 mg daily, metoprolol succinate 50 mg daily, losartan 25 mg at night, Lasix 40 mg daily, Cardizem 360 mg daily and 120 mg twice a day, Diamox 250 mg daily, and Eliquis 5mg BID * Most recent echocardiogram obtained in March 2022 revealed ejection fraction 50-55% with mild MR REVIEW OF SYSTEMS: At the time of my exam: CONSTITUTIONAL: Denies fever or chills. HEENT: Denies blurred vision, vision changes, or eye pain. Denies hemoptysis CARDIOVASCULAR: Denies chest pain. Denies orthopnea. Denies PND. Denies palpitations RESPIRATORY: + shortness of breath. GASTROINTESTINAL: Denies abdominal pain. Denies nausea or vomiting. HEMATOLOGIC: Denies bleeding disorders. GENITOURINARY: Denies any blood in urine. SKIN: Denies pruitis. Denies rash. PHYSICAL EXAM: VITAL SIGNS: Reviewed. GENERAL: Well-developed in no acute distress. HEENT: Head is normocephalic. Pupils are equal, round. Sclerae anicteric. Mucous membranes of the mouth are moist. Neck supple. No JVD or thyromegaly LUNGS: Respirations even and unlabored. Lungs diminished bilaterally. HEART: Irregular rate and rhythm. S1 and S2 heard. ABDOMEN: Soft. Nondistended. Nontender. EXTREMITIES: Normal range of motion. No clubbing or cyanosis. Peripheral pulses intact. 1+ bilateral lower extremity edema NEUROLOGIC: Awake and alert. Oriented x 3. ASSESSMENT: Shortness of breath Bilateral ankle pain Acute on chronic heart failure with preserved ejection fraction, EF 50-55% Chronic hypoxic respiratory failure, on home oxygen Chronic kidney disease Persistent atrial fibrillation with controlled ventricular rate History of atrial flutter, type unknown Hypertension PLAN: No need to repeat echo as this was performed in March 2022 Continue current cardiac medications Continue IV lasix Daily weights, accurate I&O, and monitoring of kidney function Management of ankle pain per primary medicine Further recommendations pending patient course Nurse practitioner note has been reviewed by physician. Signing provider agrees with the documented findings, assessment, and plan of care. Past Medical History Past Medical History: Atrial Fibrillation, Asthma, Heart Failure, COPD, Sleep Apnea/CPAP/BIPAP History of Any Multi-Drug Resistant Organisms: None Reported Date of last positivie culture/infection: 04/05/22 MDRO Source:: Left Leg Past Surgical History: Hernia Repair, Joint Replacement, Orthopedic Surgery Additional Past Surgical History / Comment(s): rt hip, rt foot Past Anesthesia/Blood Transfusion Reactions: No Reported Reaction Past Psychological History: Depression Smoking Status: Former smoker Past Alcohol Use History: None Reported Medications and Allergies Home Medications Medication Instructions Recorded Confirmed Type Apixaban [Eliquis] 5 mg PO BID #60 tab 05/13/21 07/09/22 Rx Albuterol Sulfate [Proair Hfa] 2 puff INHALATION RT-Q4H PRN 04/05/22 07/09/22 History Budesonide/Glycopyr/Formoterol 1 puff INHALATION RT-BID 04/05/22 07/09/22 History [Breztri Aerosphere Inhaler] Furosemide [Lasix] 40 mg PO BID@0900,1600 tab 04/17/22 07/09/22 Rx Ipratropium-Albuterol Nebulize 3 ml INHALATION RT-Q2H PRN each 04/17/22 07/09/22 Rx [Duoneb 0.5 mg-3 mg/3 ml Soln] Sertraline [Zoloft] 50 mg PO HS #30 tab 04/23/22 07/09/22 Rx acetaZOLAMIDE [Diamox] 250 mg PO DAILY #30 tablet 04/23/22 07/09/22 Rx metOLazone 2.5 mg PO DAILY #30 tablet 04/23/22 07/09/22 Rx Losartan [Cozaar] 25 mg PO HS 07/09/22 07/09/22 History Metoprolol Succinate (ER) [Toprol 50 mg PO DAILY 07/09/22 07/09/22 History Xl] Pregabalin [Lyrica] 75 mg PO TID PRN 07/09/22 07/09/22 History dilTIAZem HCL [dilTIAZem HCL 24Hr 360 mg PO DAILY 07/09/22 07/09/22 History ER (LA)] dilTIAZem HCL [dilTIAZem HCL 24Hr 120 mg PO BID 07/09/22 07/09/22 History ER (Xr)] hydrOXYzine pamoate 50 mg PO HS PRN 07/09/22 07/09/22 History metOLazone [Zaroxolyn] 2.5 mg PO DAILY 07/09/22 07/09/22 History Allergies Allergy/AdvReac Type Severity Reaction Status Date / Time No Known Allergies Allergy Verified 04/05/22 17:43 Physical Exam Vitals: Vital Signs Temp Pulse Pulse Resp BP BP BP 07/10/22 08:00 98.9 F 95 18 116/73 07/10/22 07:48 99 07/10/22 07:36 107 H 07/10/22 04:00 90 18 122/70 07/10/22 00:00 81 17 119/69 07/09/22 21:51 88 07/09/22 21:41 97.7 F 96 18 117/69 07/09/22 21:38 84 07/09/22 19:50 79 20 116/89 07/09/22 18:00 77 23 106/64 07/09/22 17:00 105/62 07/09/22 16:00 101 H 14 117/75 07/09/22 15:00 86 14 114/66 07/09/22 14:00 85 20 99/69 07/09/22 13:04 83 22 129/73 07/09/22 13:01 97 F L 94 24 137/73 Pulse Ox 07/10/22 08:00 92 L 07/10/22 07:48 07/10/22 07:36 90 L 07/10/22 04:00 97 07/10/22 00:00 93 L 07/09/22 21:51 07/09/22 21:41 92 L 07/09/22 21:38 91 L 07/09/22 19:50 94 L 07/09/22 18:00 89 L 07/09/22 17:00 94 L 07/09/22 16:00 92 L 07/09/22 15:00 98 07/09/22 14:00 98 07/09/22 13:04 96 07/09/22 13:01 95 Intake and Output 07/09/22 07/10/22 07/10/22 22:59 06:59 14:59 Output Total 1450 625 Balance -1450 -625 Output: Urine 1450 625 Other: Voiding Method External Catheter External Catheter Weight 145.15 kg 147.4 kg Results 07/10/22 07:22 07/10/22 07:22 Cardiac Enzymes 07/09/22 07/09/22 Range/Units 13:29 13:29 AST 48 (17-59) U/L Troponin I <0.012 (0.000-0.034) ng/mL Coagulation 07/09/22 Range/Units 13:29 PT 10.0 (9.0-12.0) sec APTT 27.6 (22.0-30.0) sec CBC 07/09/22 07/10/22 Range/Units 13:29 07:22 WBC 8.8 10.0 (3.8-10.6) k/uL RBC 4.54 4.50 (4.30-5.90) m/uL Hgb 13.5 13.0 (13.0-17.5) gm/dL Hct 38.9 L 38.6 L (39.0-53.0) % Plt Count 275 289 (150-450) k/uL Comprehensive Metabolic Panel 07/09/22 07/10/22 Range/Units 13:29 07:22 Sodium 140 137 (137-145) mmol/L Potassium 4.9 4.5 (3.5-5.1) mmol/L Chloride 98 95 L (98-107) mmol/L Carbon Dioxide 30 35 H (22-30) mmol/L BUN 87 H 80 H (9-20) mg/dL Creatinine 1.73 H 1.64 H (0.66-1.25) mg/dL Glucose 120 H 123 H (74-99) mg/dL Calcium 8.8 8.7 (8.4-10.2) mg/dL AST 48 (17-59) U/L ALT 34 (4-49) U/L Alkaline Phosphatase 109 (38-126) U/L Total Protein 7.3 (6.3-8.2) g/dL Albumin 4.1 (3.5-5.0) g/dL Current Medications Generic Name Dose Route Start Last Admin Trade Name Freq PRN Reason Stop Dose Admin Hydrocodone Bitart/Acetaminophen 1 each 07/09/22 20:36 07/10/22 04:52 Hydrocodone/Apap 5-325mg 1 Each Tab PO 1 each Q6HR PRN Administration Pain Acetazolamide 250 mg 07/10/22 09:00 07/10/22 09:26 Acetazolamide 250 Mg Tab PO 250 mg DAILY OBI Administration Albuterol Sulfate 2 puff 07/09/22 16:38 Albuterol Hfa Inhaler INHALATION RT-Q4H PRN Wheezing Apixaban 5 mg 07/09/22 21:00 07/10/22 09:26 Apixaban 5 Mg Tab PO 5 mg BID OBI Administration Protocol Budesonide/Formoterol Fumarate 2 puff 07/09/22 20:00 07/10/22 07:35 Symbicort 160-4.5 Mcg Inhaler INHALATION 2 puff RT-BID OBI Administration Diltiazem HCl 360 mg 07/10/22 09:00 07/10/22 09:26 Diltiazem Cd 180 Mg Cap.Er.24h PO 360 mg DAILY OBI Administration Diltiazem HCl 120 mg 07/09/22 21:00 07/10/22 09:26 Diltiazem Cd 120 Mg Cap.Er.24h PO 120 mg BID OBI Administration Furosemide 40 mg 07/09/22 22:00 07/10/22 06:30 Furosemide 10 Mg/Ml 4 Ml Vial IV 40 mg Q8H OBI Administration Hydromorphone HCl 0.5 mg 07/09/22 20:36 Hydromorphone 0.5 Mg/0.5 Ml Syringe IVP Q6HR PRN Pain Hydroxyzine Pamoate 50 mg 07/09/22 20:34 Hydroxyzine Pamoate 25 Mg Cap PO HS PRN ANXIETY/INSOMNIA Ipratropium [place] 0.5 mg 07/09/22 20:00 07/10/22 07:35 Ipratropium 0.5 Mg/2.5 Ml Nebu INHALATION 0.5 mg RT-QID OBI Administration Losartan Potassium 25 mg 07/09/22 21:00 07/09/22 21:02 Losartan 25 Mg Tab PO 25 mg HS OBI Administration Metolazone 2.5 mg 07/10/22 09:00 07/10/22 09:26 Metolazone 2.5 Mg Tab PO 2.5 mg DAILY OBI Administration Metoprolol Succinate 50 mg 07/10/22 09:00 07/10/22 09:26 Metoprolol Succinate (Er) 50 Mg Tab.Er.24h PO 50 mg DAILY OBI Administration Pregabalin 75 mg 07/09/22 20:34 07/10/22 09:26 Pregabalin 75 Mg Cap PO 75 mg TID PRN Administration Pain Intake and Output 07/09/22 07/10/22 07/10/22 22:59 06:59 14:59 Output Total 1450 625 Balance -1450 -625 Output: Urine 1450 625 Other: Voiding Method External Catheter External Catheter Weight 145.15 kg 147.4 kg 07/10/22 07:22 07/10/22 07:22
[2022-07-10 10:58] VITALS: BMI 44.0
[2022-07-10] MEDS ORDERED: DEXTROSE 50% SYRINGE 50 ML IVP PRN ×2 (13:39)
--- NOTE | 2022-07-10 13:50 | P.HPIM ---
History of Present Illness H&P Date: 07/10/22 This is a 57 year old male who follows with Dr. Parish Iverson, medical history of atrial fibrillation anticoagulated with eliquis, heart failure, COPD, sleep apnea, asthma, former smoker. Patient presents to hospital with main complaint of weakness and pain in his lower extremity. He ports feeling numbness and tingling in his ankles and pain and had went to [facility] where he had xrays done that he states were negative. Since he has had progressive pain mostly in the left knee and foot/foot pad and ankle also though in the right knee/foot/ankle as well. He states the pain is 10/10 like pins and needles and making it difficult to ambulate. He denies shortness of breath, he denies chest pain, no chest pressure. No recent illness, No recent falls. Denies back pain, denies loss of bladder or bowel. No fever or chills. He denies being a diabetic although his previous admission his A1C was found to be 6.7 and was discussed that he would be considered a type 2 diabetic. Patient does wear oxygen chronically, he has not had to increase his oxygen demands at home. Chest xray showing basilar atelectasis vs pneumonia and mild central venous congestion versus interstitial pneumonitis. EKG showing atrial fibrillation with heart rate in the 70s. Troponin negative, proBNP 1120. Creatinine is elevated at 1.73, All other labs are essentially normal. Currently requiring 2 L of oxygen via nasal cannula. He was started on IV lasix in the EC and home medications resumed. He has diuresed about 3.5 L of fluid in since admission. Cardiology has been consulted for further evaluation, He will be started on IV steroids for the joint pain and monitor for improvement. There is also possibly a component of diabetic nephropathy. REVIEW OF SYSTEMS: CONSTITUTIONAL: No fever, no malaise, no fatigue. HEENT: No recent visual problems or hearing problems. Denied any sore throat. CARDIOVASCULAR: No chest pain, orthopnea, PND, no palpitations, no syncope. PULMONARY: No shortness of breath, no cough, no hemoptysis. GASTROINTESTINAL: No diarrhea, no nausea, no vomiting, no abdominal pain. NEUROLOGICAL: No headaches, no weakness, no numbness. HEMATOLOGICAL: Denies any bleeding or petechiae. GENITOURINARY: Denies any burning micturition, frequency, or urgency. MUSCULOSKELETAL/RHEUMATOLOGICAL: reports bilateral LE pain, numbness/tingling mostly in the knee/ankle/foot ENDOCRINE: Denies any polyuria or polydipsia. The rest of the 14-point review of systems is negative. PHYSICAL EXAMINATION: GENERAL: The patient is alert and oriented x3, not in any acute distress. Well developed, well nourished. HEENT: Pupils are round and equally reacting to light. EOMI. No scleral icterus. No conjunctival pallor. Normocephalic, atraumatic. No pharyngeal erythema. No thyromegaly. CARDIOVASCULAR: S1 and S2 present. No murmurs, rubs, or gallops. PULMONARY: Chest is clear to auscultation, no wheezing or crackles. ABDOMEN: Soft, nontender, nondistended, normoactive bowel sounds. No palpable organomegaly. MUSCULOSKELETAL: No joint swelling or deformity. EXTREMITIES: No cyanosis, clubbing, or pedal edema. NEUROLOGICAL: Gross neurological examination did not reveal any focal deficits. LE tender to touch SKIN: No rashes. Assessment and Plan Assessment Bilateral lower extremity ankle/knee/foot pain with weakness/difficulty ambulating Mild acute on chronic heart failure likely diastolic with recent echo showing EF of 55%. Acute kidney injury likely prerenal COPD with out acute exacerbation Diabetes Mellitus type 2 with A1C 6.7 back in [place] Recent hospital admission for respiratory failure from COPD/CHF requiring intubation and also IV antibiotics for LE ulceration/cellulitis Chronic hypoxemic respiratory failure on 2L nasal cannula at home Chronic atrial fibrillation anticougulated with eliquis Obstructive sleep apnea with BiPAP use Chronic lower extremity edema Former smoker GI prophylaxis DVT prophylaxis Full Code Plan Continue IV lasix with intake and output monitoring Cardiology consultation Resume appropriate home medications Check procalcitonin level Patient will be started on IV steroids monitor for improvement in LE joint pain Check A1C/TSH/B12/Folate Repeat BMP in AM PT/OT consultation The impression and plan of care has been dictated by Meri Galvan, Nurse Practitioner as directed. Dr. Denisse MD I have performed a history and physical examination and medical decision making of this patient, discussed the same with the dictator, and agree with the dictators assessment and plan as written, documented as a scribe. Based on total visit time, I have performed more than 50% of this visit. Past Medical History Past Medical History: Atrial Fibrillation, Asthma, Heart Failure, COPD, Sleep Apnea/CPAP/BIPAP History of Any Multi-Drug Resistant Organisms: None Reported Date of last positivie culture/infection: 04/05/22 MDRO Source:: Left Leg Past Surgical History: Hernia Repair, Joint Replacement, Orthopedic Surgery Additional Past Surgical History / Comment(s): rt hip, rt foot Past Anesthesia/Blood Transfusion Reactions: No Reported Reaction Past Psychological History: Depression Smoking Status: Former smoker Past Alcohol Use History: None Reported Medications and Allergies Home Medications Medication Instructions Recorded Confirmed Type Apixaban [Eliquis] 5 mg PO BID #60 tab 05/13/21 07/09/22 Rx Albuterol Sulfate [Proair Hfa] 2 puff INHALATION RT-Q4H PRN 04/05/22 07/09/22 History Budesonide/Glycopyr/Formoterol 1 puff INHALATION RT-BID 04/05/22 07/09/22 History [Breztri Aerosphere Inhaler] Furosemide [Lasix] 40 mg PO BID@0900,1600 tab 04/17/22 07/09/22 Rx Ipratropium-Albuterol Nebulize 3 ml INHALATION RT-Q2H PRN each 04/17/22 07/09/22 Rx [Duoneb 0.5 mg-3 mg/3 ml Soln] Sertraline [Zoloft] 50 mg PO HS #30 tab 04/23/22 07/09/22 Rx acetaZOLAMIDE [Diamox] 250 mg PO DAILY #30 tablet 04/23/22 07/09/22 Rx metOLazone 2.5 mg PO DAILY #30 tablet 04/23/22 07/09/22 Rx Losartan [Cozaar] 25 mg PO HS 07/09/22 07/09/22 History Metoprolol Succinate (ER) [Toprol 50 mg PO DAILY 07/09/22 07/09/22 History Xl] Pregabalin [Lyrica] 75 mg PO TID PRN 07/09/22 07/09/22 History dilTIAZem HCL [dilTIAZem HCL 24Hr 360 mg PO DAILY 07/09/22 07/09/22 History ER (LA)] dilTIAZem HCL [dilTIAZem HCL 24Hr 120 mg PO BID 07/09/22 07/09/22 History ER (Xr)] hydrOXYzine pamoate 50 mg PO HS PRN 07/09/22 07/09/22 History metOLazone [Zaroxolyn] 2.5 mg PO DAILY 07/09/22 07/09/22 History Allergies Allergy/AdvReac Type Severity Reaction Status Date / Time No Known Allergies Allergy Verified 04/05/22 17:43 Physical Exam Vitals: Vital Signs Temp Pulse Pulse Resp BP BP Pulse Ox 07/10/22 07:48 99 07/10/22 07:36 107 H 90 L 07/10/22 04:00 90 18 122/70 97 07/10/22 00:00 81 17 119/69 93 L 07/09/22 21:51 88 07/09/22 21:41 97.7 F 96 18 117/69 92 L 07/09/22 21:38 84 91 L 07/09/22 19:50 79 20 116/89 94 L 07/09/22 18:00 77 23 106/64 89 L 07/09/22 17:00 105/62 94 L 07/09/22 16:00 101 H 14 117/75 92 L 07/09/22 15:00 86 14 114/66 98 07/09/22 14:00 85 20 99/69 98 07/09/22 13:04 83 22 129/73 96 07/09/22 13:01 97 F L 94 24 137/73 95 Intake and Output 07/09/22 07/10/22 07/10/22 22:59 06:59 14:59 Output Total 1450 625 Balance -1450 -625 Output: Urine 1450 625 Other: Voiding Method External Catheter External Catheter Weight 145.15 kg 147.4 kg Results CBC & Chem 7: 07/10/22 07:22 07/10/22 07:22 Labs: Abnormal Lab Results - Last 24 Hours (Table) 07/09/22 07/09/22 07/10/22 Range/Units 13:29 13:29 07:22 Hct 38.9 L 38.6 L (39.0-53.0) % Neutrophils # 8.0 H (1.3-7.7) k/uL Lymphocytes # 0.7 L (1.0-4.8) k/uL Chloride (98-107) mmol/L Carbon Dioxide (22-30) mmol/L BUN 87 H (9-20) mg/dL Creatinine 1.73 H (0.66-1.25) mg/dL Glucose 120 H (74-99) mg/dL Magnesium 2.7 H (1.6-2.3) mg/dL 07/10/22 Range/Units 07:22 Hct (39.0-53.0) % Neutrophils # (1.3-7.7) k/uL Lymphocytes # (1.0-4.8) k/uL Chloride 95 L (98-107) mmol/L Carbon Dioxide 35 H (22-30) mmol/L BUN 80 H (9-20) mg/dL Creatinine 1.64 H (0.66-1.25) mg/dL Glucose 123 H (74-99) mg/dL Magnesium (1.6-2.3) mg/dL Thrombosis Risk Factor Assmnt - Choose All That Apply Any of the Below Risk Factors Present?: Yes Each Factor Represents 1 point: Abnormal pulmonary function (COPD), Age 41-60 years, Obesity (BMI >25), Swollen legs (current) Other Risk Factors: Yes Each Risk Factor Represents 2 Points: Patient confined to bed Other congenital or acquired thrombophilia - If yes, enter type in comment: No Thrombosis Risk Factor Assessment Total Risk Factor Score: 6 Thrombosis Risk Factor Assessment Level: High Risk Assessment and Plan Time with Patient: Greater than 30
[2022-07-10] MEDS: methylPREDNISolone SOD SUCCI 40 MG/ML 1 ML VIAL IV SCH ×2 (14:15→20:43)
[2022-07-10 16:57] LABS: Glucose,Whole Blood 193 mg/dL (70-110)
[2022-07-10] MEDS: INSULIN ASPART (NovoLOG) 100 UNIT/ML VIAL SQ SCH ×2 (17:04→20:44)
[2022-07-10 20:32] LABS: Glucose,Whole Blood 224 mg/dL (70-110)
[2022-07-10] MEDS: LOSARTAN 25 MG TAB PO SCH (20:44)
[2022-07-11] MEDS: HYDROcodone/APAP 5-325MG 1 EACH TAB PO PRN ×3 (00:07→16:34)
[2022-07-11 06:06] LABS: Glucose,Whole Blood 221 mg/dL (70-110)
[2022-07-11] MEDS: FUROSEMIDE 10 MG/ML 4 ML VIAL IV SCH (06:21)
[2022-07-11] MEDS: INSULIN ASPART (NovoLOG) 100 UNIT/ML VIAL SQ SCH ×4 (06:22→20:42)
[2022-07-11 08:03] LABS: African American GFR (CKD) 55 (>60 ml/min/1.73 sqM); Anion Gap 11 mmol/L; Blood Urea Nitrogen 71 mg/dL (9-20); Calcium 9.3 mg/dL (8.4-10.2); Carbon Dioxide 30 mmol/L (22-30); Chloride 96 mmol/L (98-107); Glucose 190 mg/dL (74-99); Magnesium 2.6 mg/dL (1.6-2.3); Non-African American GFR(CKD) 47 (>60 ml/min/1.73 sqM); Potassium 4.9 mmol/L (3.5-5.1); Sodium 137 mmol/L (137-145)
[2022-07-11] MEDS: IPRATROPIUM 0.5 MG/2.5 ML NEBU INHALATION SCH ×4 (08:24→20:29)
[2022-07-11] MEDS: SYMBICORT 160-4.5 MCG INHALER INHALATION SCH ×2 (08:24→20:29)
[2022-07-11] MEDS: acetaZOLAMIDE 250 MG TAB PO SCH (09:21)
[2022-07-11] MEDS: METOPROLOL SUCCINATE (ER) 50 MG TAB.ER.24H PO SCH (09:22)
[2022-07-11] MEDS: DILTIAZEM CD 180 MG CAP.ER.24H PO SCH (09:22)
[2022-07-11] MEDS: methylPREDNISolone SOD SUCCI 40 MG/ML 1 ML VIAL IV SCH ×2 (09:22→19:56)
[2022-07-11] MEDS: APIXABAN 5 MG TAB PO SCH ×2 (09:22→19:56)
[2022-07-11] MEDS: metOLazone 2.5 MG TAB PO SCH (09:23)
[2022-07-11 09:35] LABS: T4, Free (Free Thyroxine) 1.12 ng/dL (0.78-2.19)
[2022-07-11 11:40] LABS: Glucose,Whole Blood 177 mg/dL (70-110)
--- NOTE | 2022-07-11 11:42 | P.PN ---
Subjective Progress Note Date: 07/11/22 HISTORY OF PRESENT ILLNESS: This is a 57-year-old male with a past medical history significant for persistent atrial fibrillation, atrial flutter, congestive heart failure, hypertension, and leg wounds with MSSA. Patient follows in the office with Dr. Dickerson. We have been asked to see the patient in consultation for congestive heart failure. Patient examined at the bedside. Patient states over the past few days he has become more short of breath and noticed increased lower extremity edema. He states he has been taking his lasix. He states his ankles have been hurting so bad that he is having a hard time walking and getting to the bathroom. The patient denies any chest pain or pressure. The patient was found to be in CHF and was started on IV lasix. He reports that he is scheduled for a colonoscopy at the end of the month with Dr. Ryder. He is scheduled for an outpatient stress test on . * EKG reveals atrial fibrillation with controlled ventricular rate * Chest xray cardiomegaly with basilar atelectasis favored over pneumonia. Correlate for mild central venous congestion or interstitial pneumonitis.. * Laboratory data: WBC 10.0. Hemoglobin 13.0. Platelet count 289. Sodium 137. Potassium 4.5. BUN 80. Creatinine 1.64. Troponin negative 1. ProBNP 1120. * Current home cardiac medications include Zaroxolyn 2.5 mg daily, metoprolol succinate 50 mg daily, losartan 25 mg at night, Lasix 40 mg daily, Cardizem 360 mg daily and 120 mg twice a day, Diamox 250 mg daily, and Eliquis 5mg BID * Most recent echocardiogram obtained in March 2022 revealed ejection fraction 50-55% with mild MR 07/11/2022 Patient examined this morning at the bedside. Patient denies chest pain or pressure. He denies SOB. He remains on IV lasix. He continues to report weakness when he is up ambulating. PHYSICAL EXAM: VITAL SIGNS: Reviewed. GENERAL: Well-developed in no acute distress. HEENT: Head is normocephalic. Pupils are equal, round. Sclerae anicteric. Mucous membranes of the mouth are moist. Neck supple. No JVD or thyromegaly LUNGS: Respirations even and unlabored. Lungs diminished bilaterally. HEART: Irregular rate and rhythm. S1 and S2 heard. ABDOMEN: Soft. Nondistended. Nontender. EXTREMITIES: Normal range of motion. No clubbing or cyanosis. Peripheral pulses intact. 1+ bilateral lower extremity edema NEUROLOGIC: Awake and alert. Oriented x 3. ASSESSMENT: Shortness of breath Bilateral ankle pain Acute on chronic heart failure with preserved ejection fraction, EF 50-55% Chronic hypoxic respiratory failure, on home oxygen Chronic kidney disease Persistent atrial fibrillation with controlled ventricular rate History of atrial flutter, type unknown Hypertension PLAN: No need to repeat echo as this was performed in March 2022 Continue current cardiac medications Continue IV lasix. Decrease dosage to once daily. Likely transition to oral dosing tomorrow. Daily weights, accurate I&O, and monitoring of kidney function Management of ankle pain and lower extremity weakness per primary medicine Further recommendations pending patient course Nurse practitioner note has been reviewed by physician. Signing provider agrees with the documented findings, assessment, and plan of care. Objective - Vital Signs Vital signs: Vital Signs Temp 98.2 F 07/11/22 08:00 Pulse 75 07/11/22 11:33 Resp 18 07/11/22 08:00 BP 127/76 07/11/22 08:00 Pulse Ox 94 L 07/11/22 08:00 FiO2 Intake & Output 07/10/22 07/11/22 07/11/22 18:59 06:59 18:59 Intake Total 680 240 Output Total 3575 600 Balance -2895 -360 Weight 147.4 kg 145 kg Intake: Oral 680 240 Output: Urine 3575 600 Other: Voiding Method External Catheter Indwelling Catheter Toilet Urinal # Bowel Movements 1 - Labs CBC & Chem 7: 07/10/22 07:22 07/11/22 06:49 Labs: Abnormal Lab Results - Last 24 Hours (Table) 07/10/22 07/10/22 07/10/22 Range/Units 07:22 16:55 20:30 Chloride (98-107) mmol/L BUN (9-20) mg/dL Creatinine (0.66-1.25) mg/dL Glucose (74-99) mg/dL POC Glucose (mg/dL) 193 H 224 H (70-110) mg/dL Magnesium (1.6-2.3) mg/dL Procalcitonin 0.18 H (0.02-0.09) ng/mL TSH (0.465-4.680) mIU/L 07/11/22 07/11/22 Range/Units 06:04 06:49 Chloride 96 L (98-107) mmol/L BUN 71 H (9-20) mg/dL Creatinine 1.58 H (0.66-1.25) mg/dL Glucose 190 H (74-99) mg/dL POC Glucose (mg/dL) 221 H (70-110) mg/dL Magnesium 2.6 H (1.6-2.3) mg/dL Procalcitonin (0.02-0.09) ng/mL TSH 0.449 L (0.465-4.680) mIU/L
[2022-07-11] MEDS: PREGABALIN 75 MG CAP PO PRN (12:14)
--- NOTE | 2022-07-11 16:15 | P.PN ---
Subjective Progress Note Date: 07/11/22 This is a 57 year old male who follows with Dr. Parish Iverson, medical history of atrial fibrillation anticoagulated with eliquis, heart failure, COPD, sleep apnea, asthma, former smoker. Patient presents to hospital with main complaint of weakness and pain in his lower extremity. He ports feeling numbness and tingling in his ankles and pain and had went to [facility] where he had xrays done that he states were negative. Since he has had progressive pain mostly in the left knee and foot/foot pad and ankle also though in the right knee/foot/ankle as well. He states the pain is 10/10 like pins and needles and making it difficult to ambulate. He denies shortness of breath, he denies chest pain, no chest pressure. No recent illness, No recent falls. Denies back pain, denies loss of bladder or bowel. No fever or chills. He denies being a diabetic although his previous admission his A1C was found to be 6.7 and was discussed that he would be considered a type 2 diabetic. Patient does wear oxygen chronically, he has not had to increase his oxygen demands at home. Chest xray showing basilar atelectasis vs pneumonia and mild central venous congestion versus interstitial pneumonitis. EKG showing atrial fibrillation with heart rate in the 70s. Troponin negative, proBNP 1120. Creatinine is elevated at 1.73, All other labs are essentially normal. Currently requiring 2 L of oxygen via nasal cannula. He was started on IV lasix in the EC and home medications resumed. He has diuresed about 3.5 L of fluid in since admission. Cardiology has been consulted for further evaluation, He will be started on IV steroids for the joint pain and monitor for improvement. There is also possibly a component of diabetic nephropathy. 07/11/2022 Patient evaluated today ambulating in room. States minimal improvement in joint pain with IV steroids. This is possibly a pseudogout and will continue patient on steroids and will change pregabalin to BID. Will also be started on duloxetine. IV Lasix has been decreased today. He is weaned down to 3 L of oxygen. Arterial Doppler bilateral LE ordered and pending. Creatinine 1.58 today. PHYSICAL EXAMINATION: GENERAL: The patient is alert and oriented x3, not in any acute distress. Well developed, well nourished. HEENT: Pupils are round and equally reacting to light. EOMI. No scleral icterus. No conjunctival pallor. Normocephalic, atraumatic. No pharyngeal erythema. No thyromegaly. CARDIOVASCULAR: S1 and S2 present. No murmurs, rubs, or gallops. PULMONARY: Chest is clear to auscultation, no wheezing or crackles. ABDOMEN: Soft, nontender, nondistended, normoactive bowel sounds. No palpable organomegaly. MUSCULOSKELETAL: No joint swelling or deformity. EXTREMITIES: No cyanosis, clubbing, or pedal edema. NEUROLOGICAL: Gross neurological examination did not reveal any focal deficits. LE tender to touch SKIN: No rashes. Assessment and Plan Assessment Bilateral lower extremity ankle/knee/foot pain with weakness/difficulty ambulating vascular insufficiency vs. a pseudogout some improvement with IV steroids. Mild acute on chronic heart failure likely diastolic with recent echo showing EF of 55%. Acute on chronic kidney injury likely prerenal COPD with out acute exacerbation Diabetes Mellitus type 2 with A1C 6.7 back in [place] Recent hospital admission for respiratory failure from COPD/CHF requiring intubation and also IV antibiotics for LE ulceration/cellulitis Chronic hypoxemic respiratory failure on 2L nasal cannula at home Chronic atrial fibrillation anticougulated with eliquis Obstructive sleep apnea with BiPAP use Chronic lower extremity edema Former smoker GI prophylaxis DVT prophylaxis Full Code Plan Continue IV lasix with intake and output monitoring Cardiology consultation Continue on IV steroids monitor for improvement in LE joint pain Arterial doppler bilateral LE Repeat BMP in AM PT/OT consultation DC to subacute rehab possibly in the next 24 to 48 hours The impression and plan of care has been dictated by Meri Galvan, Nurse Practitioner as directed. Dr. Denisse MD I have performed a history and physical examination and medical decision making of this patient, discussed the same with the dictator, and agree with the dictators assessment and plan as written, documented as a scribe. Based on total visit time, I have performed more than 50% of this visit. Objective - Vital Signs Vital signs: Vital Signs Temp 98.7 F 07/11/22 12:13 Pulse 78 07/11/22 16:05 Resp 18 07/11/22 12:13 BP 128/74 07/11/22 12:13 Pulse Ox 94 L 07/11/22 12:13 FiO2 Intake & Output 07/10/22 07/11/22 07/11/22 18:59 06:59 18:59 Intake Total 680 240 Output Total 3575 600 Balance -2229 -733 Weight 147.4 kg 145 kg Intake: Oral 680 240 Output: Urine 3575 600 Other: Voiding Method External Catheter Indwelling Catheter Toilet Urinal # Bowel Movements 1 - Labs CBC & Chem 7: 07/10/22 07:22 07/11/22 06:49 Labs: Abnormal Lab Results - Last 24 Hours (Table) 07/10/22 07/10/22 07/10/22 Range/Units 07:22 16:55 20:30 Chloride (98-107) mmol/L BUN (9-20) mg/dL Creatinine (0.66-1.25) mg/dL Glucose (74-99) mg/dL POC Glucose (mg/dL) 193 H 224 H (70-110) mg/dL Magnesium (1.6-2.3) mg/dL Procalcitonin 0.18 H (0.02-0.09) ng/mL TSH (0.465-4.680) mIU/L 07/11/22 07/11/22 07/11/22 Range/Units 06:04 06:49 11:35 Chloride 96 L (98-107) mmol/L BUN 71 H (9-20) mg/dL Creatinine 1.58 H (0.66-1.25) mg/dL Glucose 190 H (74-99) mg/dL POC Glucose (mg/dL) 221 H 177 H (70-110) mg/dL Magnesium 2.6 H (1.6-2.3) mg/dL Procalcitonin (0.02-0.09) ng/mL TSH 0.449 L (0.465-4.680) mIU/L Assessment and Plan Time with Patient: Less than 30
[2022-07-11 17:00] LABS: Glucose,Whole Blood 214 mg/dL (70-110)
[2022-07-11] MEDS: DILTIAZEM CD 120 MG CAP.ER.24H PO SCH (19:56)
[2022-07-11] MEDS: LOSARTAN 25 MG TAB PO SCH (19:56)
[2022-07-11] MEDS: PREGABALIN 100 MG CAP PO SCH (19:56)
[2022-07-11 20:21] LABS: Glucose,Whole Blood 289 mg/dL (70-110)
[2022-07-12 06:05] LABS: Glucose,Whole Blood 190 mg/dL (70-110)
[2022-07-12] MEDS: INSULIN ASPART (NovoLOG) 100 UNIT/ML VIAL SQ SCH ×4 (06:25→20:49)
--- NOTE | 2022-07-12 06:36 | US ---
EXAMINATION TYPE: US arterial LE single level DATE OF EXAM: 07/11/2022 1:17 PM CLINICAL HISTORY: numbness and tingling bilat LE. Pt states ankle and knee pain, has A-Fib History of: Smoker: Previous Hypertension: Yes Diabetic: No Hyperlipidemia: No TIA/CVA: No Previous Vascular Surgery: No CAD: No WV: No Vascular Ulcers: No Claudication: No Gangrene: No Doppler Waveforms: Right: Biphasic Left: Biphasic Right Brachial Pressure: 102 Left Brachial Pressure: Deferred due to IV site Ankle-Brachial Indices: Right: 1.38 Left: 1.40 IMPRESSION: Normal study.
[2022-07-12] MEDS: SYMBICORT 160-4.5 MCG INHALER INHALATION SCH ×2 (07:48→19:52)
[2022-07-12] MEDS: IPRATROPIUM 0.5 MG/2.5 ML NEBU INHALATION SCH ×4 (07:48→19:51)
[2022-07-12] MEDS: metOLazone 2.5 MG TAB PO SCH (08:58)
[2022-07-12] MEDS: HYDROcodone/APAP 5-325MG 1 EACH TAB PO PRN ×3 (08:58→23:48)
[2022-07-12] MEDS: acetaZOLAMIDE 250 MG TAB PO SCH (08:58)
[2022-07-12] MEDS: METOPROLOL SUCCINATE (ER) 50 MG TAB.ER.24H PO SCH (08:58)
[2022-07-12] MEDS: DILTIAZEM CD 180 MG CAP.ER.24H PO SCH (08:58)
[2022-07-12] MEDS: PREGABALIN 100 MG CAP PO SCH (08:58)
[2022-07-12] MEDS: DULoxetine HCL 30 MG CAPSULE.DR PO SCH (08:59)
[2022-07-12] MEDS: methylPREDNISolone SOD SUCCI 40 MG/ML 1 ML VIAL IV SCH (08:59)
[2022-07-12] MEDS: APIXABAN 5 MG TAB PO SCH ×2 (08:59→20:48)
[2022-07-12] MEDS ORDERED: FUROSEMIDE 10 MG/ML 4 ML VIAL IV SCH (09:00)
[2022-07-12 09:18] LABS: Calcium 8.9 mg/dL (8.4-10.2); Potassium 4.8 mmol/L (3.5-5.1)
--- NOTE | 2022-07-12 09:59 | CDI ---
Documentation Clarification Form Date: 07/12/2022 9:47:49 AM From: Ayana Segundo CCS, CCDS Admit Date: 07/09/2022 5:45:00 PM Patient Name: Meir Abraham Visit Number: [id number] Discharge Date: ATTENTION: The Clinical Documentation Specialists (CDI) and [facility] Coding Staff appreciate your assistance in clarifying documentation. Please respond to the clarification below the line at the bottom and electronically sign. The CDI & [facility] Coding staff will review the response and follow-up if needed. Please note: Queries are made part of the Legal Health Record. If you have any questions, please contact the author of this message via ITS. Dr. Aracely Salcedo: Chronic Kidney Disease is documented in the 07/11 Attending Progress Note and also in the 07/10 Cardiology Consult and subsequent Progress Note. Nephrology is not documented. Additional clarification regarding the stage of CKD is requested. History/Risk Factors per the 07/10 H/P: Atrial Fibrillation on Eliquis, CHF, COPD, Obstructive Sleep Apnea, Asthma, Chronic Hpoxemic Respiratory Failure on Home O2 2L, Chronic lower extremity edema, DM II and Former smoker. Clinical Indicators: Presented to the ED on 07/09 with swelling in the legs & Abdomen and SOB on exertion. Admit with Urinary Retention, Pulmonary Edema, Pedal Edema and Unable to ambulate. LAB: 07/09 BUN: 87. 07/10: 80. 07/11: 71 07/09 Creatinine: 1.73. 07/10: 1.64. 07/11: 1.58 07/09 GFR 42. 07/10: 45. 07/11: 47. Historical GFR: None reported. Treatment 07/09: CHF Protocol: Daily weights, Blood glucose monitoring, I&Os, Cisneros Catheter, Heart healthy diet, O2 2Lnc, IV Lasix 80 mg x1, 40 mg q8H; IV Toradol 15 mg x1, INH Ventolin 2 puffs q4H/prn, INH Symbicort 2 puffs BID, INH Atrovent 0.5 mg. Please clarify the stage of the CKD, if known: [x ] CKD Stage 3 (GFR 30-59) [ ] CKD Stage 3a (GFR 45-59) [ ] CKD Stage 3b (GFR 30-44) [ ] CKD ruled out [ ] Other, please specify [ ] Unable to determine (Template Last revised: August 2020) MTDD
[2022-07-12 11:31] LABS: Glucose,Whole Blood 444 mg/dL (70-110)
--- NOTE | 2022-07-12 11:42 | P.PN ---
Subjective Progress Note Date: 07/12/22 HISTORY OF PRESENT ILLNESS: This is a 57-year-old male with a past medical history significant for persistent atrial fibrillation, atrial flutter, congestive heart failure, hypertension, and leg wounds with MSSA. Patient follows in the office with Dr. Dickerson. We have been asked to see the patient in consultation for congestive heart failure. Patient examined at the bedside. Patient states over the past few days he has become more short of breath and noticed increased lower extremity edema. He states he has been taking his lasix. He states his ankles have been hurting so bad that he is having a hard time walking and getting to the bathroom. The patient denies any chest pain or pressure. The patient was found to be in CHF and was started on IV lasix. He reports that he is scheduled for a colonoscopy at the end of the month with Dr. Ryder. He is scheduled for an outpatient stress test on . * EKG reveals atrial fibrillation with controlled ventricular rate * Chest xray cardiomegaly with basilar atelectasis favored over pneumonia. Correlate for mild central venous congestion or interstitial pneumonitis.. * Laboratory data: WBC 10.0. Hemoglobin 13.0. Platelet count 289. Sodium 137. Potassium 4.5. BUN 80. Creatinine 1.64. Troponin negative 1. ProBNP 1120. * Current home cardiac medications include Zaroxolyn 2.5 mg daily, metoprolol succinate 50 mg daily, losartan 25 mg at night, Lasix 40 mg daily, Cardizem 360 mg daily and 120 mg twice a day, Diamox 250 mg daily, and Eliquis 5mg BID * Most recent echocardiogram obtained in March 2022 revealed ejection fraction 50-55% with mild MR 07/11/2022 Patient examined this morning at the bedside. Patient denies chest pain or pressure. He denies SOB. He remains on IV lasix. He continues to report weakness when he is up ambulating. 07/12/2022 Patient examined this morning at the bedside. Patient denies chest pain or pressure. Denies shortness of breath. He remains on IV lasix. He reports persistent weakness when ambulating and is requiring a walker to ambulate. PHYSICAL EXAM: VITAL SIGNS: Reviewed. GENERAL: Well-developed in no acute distress. HEENT: Head is normocephalic. Pupils are equal, round. Sclerae anicteric. Mucous membranes of the mouth are moist. Neck supple. No JVD or thyromegaly LUNGS: Respirations even and unlabored. Lungs diminished bilaterally. HEART: Irregular rate and rhythm. S1 and S2 heard. ABDOMEN: Soft. Nondistended. Nontender. EXTREMITIES: Normal range of motion. No clubbing or cyanosis. Peripheral pulses intact. Trace bilateral lower extremity edema NEUROLOGIC: Awake and alert. Oriented x 3. ASSESSMENT: Shortness of breath Bilateral ankle pain with decreased motor strength in lower extremities Acute on chronic heart failure with preserved ejection fraction, EF 50-55% Chronic hypoxic respiratory failure, on home oxygen Chronic kidney disease Persistent atrial fibrillation with controlled ventricular rate History of atrial flutter, type unknown Hypertension PLAN: Continue current cardiac medications Discontinue IV Lasix. Begin oral Lasix 40 mg twice a day Daily weights, accurate I&O, and monitoring of kidney function Recommend neurology consult for decreased lower extremity motor strength. Will defer to internal medicine. Further recommendations pending patient course Nurse practitioner note has been reviewed by physician. Signing provider agrees with the documented findings, assessment, and plan of care. Objective - Vital Signs Vital signs: Vital Signs Temp 97.5 F L 07/12/22 09:08 Pulse 80 07/12/22 11:34 Resp 18 07/12/22 09:08 BP 142/72 07/12/22 09:08 Pulse Ox 95 07/12/22 09:08 FiO2 Intake & Output 07/11/22 07/12/22 07/12/22 18:59 06:59 18:59 Intake Total 240 Output Total 600 1100 Balance -360 -1100 Weight 144.9 kg Intake: Oral 240 Output: Urine 600 1100 Other: Voiding Method Toilet Toilet Toilet Urinal Urinal Urinal - Labs CBC & Chem 7: 07/10/22 07:22 07/12/22 08:20 Labs: Abnormal Lab Results - Last 24 Hours (Table) 07/11/22 07/11/22 07/11/22 Range/Units 11:35 16:50 20:19 Chloride (98-107) mmol/L Carbon Dioxide (22-30) mmol/L BUN (9-20) mg/dL Creatinine (0.66-1.25) mg/dL Glucose (74-99) mg/dL POC Glucose (mg/dL) 177 H 214 H 289 H (70-110) mg/dL 07/12/22 07/12/22 07/12/22 Range/Units 06:04 08:20 11:29 Chloride 96 L (98-107) mmol/L Carbon Dioxide 32 H (22-30) mmol/L BUN 70 H (9-20) mg/dL Creatinine 1.48 H (0.66-1.25) mg/dL Glucose 251 H (74-99) mg/dL POC Glucose (mg/dL) 190 H 444 H (70-110) mg/dL
[2022-07-12] MEDS ORDERED: INSULIN ASPART (NovoLOG) 100 UNIT/ML VIAL SQ ONE (12:15)
--- NOTE | 2022-07-12 15:57 | P.PN ---
Subjective Progress Note Date: 07/12/22 This is a 57 year old male who follows with Dr. Parish Iverson, medical history of atrial fibrillation anticoagulated with eliquis, heart failure, COPD, sleep apnea, asthma, former smoker. Patient presents to hospital with main complaint of weakness and pain in his lower extremity. He ports feeling numbness and tingling in his ankles and pain and had went to [facility] where he had xrays done that he states were negative. Since he has had progressive pain mostly in the left knee and foot/foot pad and ankle also though in the right knee/foot/ankle as well. He states the pain is 10/10 like pins and needles and making it difficult to ambulate. He denies shortness of breath, he denies chest pain, no chest pressure. No recent illness, No recent falls. Denies back pain, denies loss of bladder or bowel. No fever or chills. He denies being a diabetic although his previous admission his A1C was found to be 6.7 and was discussed that he would be considered a type 2 diabetic. Patient does wear oxygen chronically, he has not had to increase his oxygen demands at home. Chest xray showing basilar atelectasis vs pneumonia and mild central venous congestion versus interstitial pneumonitis. EKG showing atrial fibrillation with heart rate in the 70s. Troponin negative, proBNP 1120. Creatinine is elevated at 1.73, All other labs are essentially normal. Currently requiring 2 L of oxygen via nasal cannula. He was started on IV lasix in the EC and home medications resumed. He has diuresed about 3.5 L of fluid in since admission. Cardiology has been consulted for further evaluation, He will be started on IV steroids for the joint pain and monitor for improvement. There is also possibly a component of diabetic nephropathy. 07/11/2022 Patient evaluated today ambulating in room. States minimal improvement in joint pain with IV steroids. This is possibly a pseudogout and will continue patient on steroids and will change pregabalin to BID. Will also be started on duloxetine. IV Lasix has been decreased today. He is weaned down to 3 L of oxygen. Arterial Doppler bilateral LE ordered and pending. Creatinine 1.58 today. 07/12/2022 Patient is evaluated today resting in bed. Continues to report numbness tingling to lower extremity and fingers. He continues on pregabalin which dose has been i ncreased and also started on cymbalta. Recommend to follow up with neurology on discharge for further evaluation. He has been recommending for DC to subacute rehab and currently pending authorization. Cardiology will reschedule Lexiscan stress test which was supposed to take place tomorrow on an outpatient basis. Bilateral ankle brachial index within normal limits bilateral cap refill <3 seconds with +2 peripheral pulses. Creatinine improved to 1.48. Glucose up into the 400s today. PHYSICAL EXAMINATION: GENERAL: The patient is alert and oriented x3, not in any acute distress. Well developed, well nourished. HEENT: Pupils are round and equally reacting to light. EOMI. No scleral icterus. No conjunctival pallor. Normocephalic, atraumatic. No pharyngeal erythema. No thyromegaly. CARDIOVASCULAR: S1 and S2 present. No murmurs, rubs, or gallops. PULMONARY: Chest is clear to auscultation, no wheezing or crackles. ABDOMEN: Soft, nontender, nondistended, normoactive bowel sounds. No palpable organomegaly. MUSCULOSKELETAL: No joint swelling or deformity. EXTREMITIES: No cyanosis, clubbing, or pedal edema. NEUROLOGICAL: Gross neurological examination did not reveal any focal deficits. LE tender to touch SKIN: No rashes. Assessment and Plan Assessment Bilateral lower extremity ankle/knee/foot pain with weakness/difficulty ambulating. OVIDIO withnormal limits bilaterally. Possibly pseudogout. Continues on pregabalin and steroid taper. Mild acute on chronic heart failure likely diastolic with recent echo showing EF of 55%. Acute on chronic kidney injury likely prerenal COPD with out acute exacerbation Diabetes Mellitus type 2 with A1C 6.7 back in Mar, A1C currently i mproved 5.9. Recent hospital admission for respiratory failure from COPD/CHF requiring intubation and also IV antibiotics for LE ulceration/cellulitis Chronic hypoxemic respiratory failure on 2L nasal cannula at home Chronic atrial fibrillation anticougulated with eliquis Obstructive sleep apnea with BiPAP use Chronic lower extremity edema Former smoker GI prophylaxis DVT prophylaxis Full Code Plan Transitioned to oral lasix Cardiology consultation Continue oral steroids, increase pregabalin PT/OT consultation Recommend neurology follow up on an outpatient basis. DC to subacute rehab possibly in the next 24 to 48 hours The impression and plan of care has been dictated by Meri Galvan, Nurse Practitioner as directed. Dr. Denisse MD I have performed a history and physical examination and medical decision making of this patient, discussed the same with the dictator, and agree with the dictators assessment and plan as written, documented as a scribe. Based on total visit time, I have performed more than 50% of this visit. Objective - Vital Signs Vital signs: Vital Signs Temp 97.5 F L 07/12/22 09:08 Pulse 63 07/12/22 12:02 Resp 16 07/12/22 12:02 BP 127/74 07/12/22 12:02 Pulse Ox 96 07/12/22 12:02 FiO2 Intake & Output 07/11/22 07/12/22 07/12/22 18:59 06:59 18:59 Intake Total 240 Output Total 600 1500 Balance -360 -1500 Weight 144.9 kg Intake: Oral 240 Output: Urine 600 1500 Other: Voiding Method Toilet Toilet Toilet Urinal Urinal Urinal - Labs CBC & Chem 7: 07/10/22 07:22 07/12/22 08:20 Labs: Abnormal Lab Results - Last 24 Hours (Table) 07/11/22 07/11/22 07/12/22 Range/Units 16:50 20:19 06:04 Chloride (98-107) mmol/L Carbon Dioxide (22-30) mmol/L BUN (9-20) mg/dL Creatinine (0.66-1.25) mg/dL Glucose (74-99) mg/dL POC Glucose (mg/dL) 214 H 289 H 190 H (70-110) mg/dL 07/12/22 07/12/22 Range/Units 08:20 11:29 Chloride 96 L (98-107) mmol/L Carbon Dioxide 32 H (22-30) mmol/L BUN 70 H (9-20) mg/dL Creatinine 1.48 H (0.66-1.25) mg/dL Glucose 251 H (74-99) mg/dL POC Glucose (mg/dL) 444 H (70-110) mg/dL Assessment and Plan Time with Patient: Less than 30
[2022-07-12 16:31] LABS: Glucose,Whole Blood 222 mg/dL (70-110)
[2022-07-12] MEDS: FUROSEMIDE 40 MG TAB PO SCH (17:03)
[2022-07-12 20:06] LABS: Glucose,Whole Blood 337 mg/dL (70-110)
[2022-07-12] MEDS: PREGABALIN 75 MG CAP PO SCH (20:48)
[2022-07-12] MEDS: DILTIAZEM CD 120 MG CAP.ER.24H PO SCH (20:48)
[2022-07-12] MEDS: LOSARTAN 25 MG TAB PO SCH (20:49)
[2022-07-13 05:53] LABS: Glucose,Whole Blood 140 mg/dL (70-110)
[2022-07-13] MEDS: INSULIN ASPART (NovoLOG) 100 UNIT/ML VIAL SQ SCH ×3 (05:54→17:27)
[2022-07-13] MEDS: HYDROcodone/APAP 5-325MG 1 EACH TAB PO PRN ×2 (05:56→16:32)
[2022-07-13] MEDS: acetaZOLAMIDE 250 MG TAB PO SCH (08:34)
[2022-07-13] MEDS: FUROSEMIDE 40 MG TAB PO SCH ×2 (08:34→16:32)
[2022-07-13] MEDS: DILTIAZEM CD 180 MG CAP.ER.24H PO SCH (08:34)
[2022-07-13] MEDS: PREGABALIN 75 MG CAP PO SCH (08:36)
[2022-07-13] MEDS: DULoxetine HCL 30 MG CAPSULE.DR PO SCH (08:36)
[2022-07-13] MEDS: metOLazone 2.5 MG TAB PO SCH (08:36)
[2022-07-13] MEDS: METOPROLOL SUCCINATE (ER) 50 MG TAB.ER.24H PO SCH (08:36)
[2022-07-13] MEDS: APIXABAN 5 MG TAB PO SCH (08:36)
[2022-07-13] MEDS ORDERED: predniSONE 20 MG TAB PO SCH (09:00)
[2022-07-13] MEDS: SYMBICORT 160-4.5 MCG INHALER INHALATION SCH (09:03)
[2022-07-13] MEDS: IPRATROPIUM 0.5 MG/2.5 ML NEBU INHALATION SCH ×3 (09:03→17:52)
--- NOTE | 2022-07-13 09:12 | P.PN ---
Subjective Progress Note Date: 07/13/22 HISTORY OF PRESENT ILLNESS: This is a 57-year-old male with a past medical history significant for persistent atrial fibrillation, atrial flutter, congestive heart failure, hypertension, and leg wounds with MSSA. Patient follows in the office with Dr. Dickerson. We have been asked to see the patient in consultation for congestive heart failure. Patient examined at the bedside. Patient states over the past few days he has become more short of breath and noticed increased lower extremity edema. He states he has been taking his lasix. He states his ankles have been hurting so bad that he is having a hard time walking and getting to the bathroom. The patient denies any chest pain or pressure. The patient was found to be in CHF and was started on IV lasix. He reports that he is scheduled for a colonoscopy at the end of the month with Dr. Ryder. He is scheduled for an outpatient stress test on . * EKG reveals atrial fibrillation with controlled ventricular rate * Chest xray cardiomegaly with basilar atelectasis favored over pneumonia. Correlate for mild central venous congestion or interstitial pneumonitis.. * Laboratory data: WBC 10.0. Hemoglobin 13.0. Platelet count 289. Sodium 137. Potassium 4.5. BUN 80. Creatinine 1.64. Troponin negative 1. ProBNP 1120. * Current home cardiac medications include Zaroxolyn 2.5 mg daily, metoprolol succinate 50 mg daily, losartan 25 mg at night, Lasix 40 mg daily, Cardizem 360 mg daily and 120 mg twice a day, Diamox 250 mg daily, and Eliquis 5mg BID * Most recent echocardiogram obtained in March 2022 revealed ejection fraction 50-55% with mild MR 07/11/2022 Patient examined this morning at the bedside. Patient denies chest pain or pressure. He denies SOB. He remains on IV lasix. He continues to report weakness when he is up ambulating. 07/12/2022 Patient examined this morning at the bedside. Patient denies chest pain or pressure. Denies shortness of breath. He remains on IV lasix. He reports persistent weakness when ambulating and is requiring a walker to ambulate. 07/13/2022 Patient examined this morning to bedside. Patient denies chest pain or pressure. He denies shortness of breath. He has been transitioned to oral Lasix. Vital signs are stable. PHYSICAL EXAM: VITAL SIGNS: Reviewed. GENERAL: Well-developed in no acute distress. HEENT: Head is normocephalic. Pupils are equal, round. Sclerae anicteric. Mucous membranes of the mouth are moist. Neck supple. No JVD or thyromegaly LUNGS: Respirations even and unlabored. Lungs diminished bilaterally. HEART: Irregular rate and rhythm. S1 and S2 heard. ABDOMEN: Soft. Nondistended. Nontender. EXTREMITIES: Normal range of motion. No clubbing or cyanosis. Peripheral pulses intact. No lower extremity edema NEUROLOGIC: Awake and alert. Oriented x 3. ASSESSMENT: Shortness of breath Bilateral ankle pain with decreased motor strength in lower extremities Acute on chronic heart failure with preserved ejection fraction, EF 50-55% Chronic hypoxic respiratory failure, on home oxygen Chronic kidney disease Persistent atrial fibrillation with controlled ventricular rate History of atrial flutter, type unknown Hypertension PLAN: Continue current cardiac medications Patient is stable for discharge to ECF today from a cardiac standpoint Further recommendations pending patient course Nurse practitioner note has been reviewed by physician. Signing provider agrees with the documented findings, assessment, and plan of care. Objective - Vital Signs Vital signs: Vital Signs Temp 98.4 F 07/13/22 08:31 Pulse 84 07/13/22 09:03 Resp 16 07/13/22 08:31 BP 120/65 07/13/22 08:31 Pulse Ox 96 07/13/22 08:31 FiO2 Intake & Output 07/12/22 07/13/22 07/13/22 18:59 06:59 18:59 Intake Total 240 240 Output Total 1900 1900 Balance -1900 -1660 240 Weight 146.9 kg Intake: Oral 240 240 Output: Urine 1900 1900 Other: Voiding Method Toilet Urinal Urinal - Labs CBC & Chem 7: 07/10/22 07:22 07/12/22 08:20 Labs: Abnormal Lab Results - Last 24 Hours (Table) 07/12/22 07/12/22 07/12/22 Range/Units 08:20 11:29 16:30 Chloride 96 L (98-107) mmol/L Carbon Dioxide 32 H (22-30) mmol/L BUN 70 H (9-20) mg/dL Creatinine 1.48 H (0.66-1.25) mg/dL Glucose 251 H (74-99) mg/dL POC Glucose (mg/dL) 444 H 222 H (70-110) mg/dL 07/12/22 07/13/22 Range/Units 20:04 05:52 Chloride (98-107) mmol/L Carbon Dioxide (22-30) mmol/L BUN (9-20) mg/dL Creatinine (0.66-1.25) mg/dL Glucose (74-99) mg/dL POC Glucose (mg/dL) 337 H 140 H (70-110) mg/dL
[2022-07-13 11:41] LABS: Glucose,Whole Blood 179 mg/dL (70-110)
[2022-07-13 11:46] VITALS: RESP 18
--- NOTE | 2022-07-13 14:44 | P.DS ---
Providers Date of admission: 07/09/22 17:45 Attending physician: Rashaad Peres Consults: 07/09/22 17:45 Consult Physician Routine Consulting Provider: [facility] Consult Reason/Comments: Pulmonary edema Do you want consulting provider notified?: Yes Primary care physician: Parish Iverson Hospital Course: Final Diagnosis Bilateral lower extremity ankle/knee/foot pain with weakness/difficulty am bulating. OVIDIO withnormal limits bilaterally. Possibly pseudogout. Continues on pregabalin and steroid taper. Mild acute on chronic heart failure likely diastolic with recent echo showing EF of 55%. Acute on chronic kidney injury likely prerenal COPD with out acute exacerbation Diabetes Mellitus type 2 with A1C 6.7 back in Mar, A1C currently improved 5.9. Recent hospital admission for respiratory failure from COPD/CHF requiring intubation and also IV antibiotics for LE ulceration/cellulitis Chronic hypoxemic respiratory failure on 2L nasal cannula at home Chronic atrial fibrillation anticougulated with eliquis Obstructive sleep apnea with BiPAP use Chronic lower extremity edema Former smoker Full Code Discharge Disposition Patient is stable for discharge to subacute rehab. He has been cleared by cardiology and recommending to follow up in the office. He will discharge on oral steroid taper and also an increase in lyrica dosing for neuropathic lower extremity pain. Recommend to use tylenol in conjunction for pain management and follow up with neurology on discharge as well. Patient will continue all other home medications. Recommend to repeat labs in 2 to 3 days. Patient will continue on 2L nasal cannula as needed. Hospital Course This is a 57 year old male who follows with Dr. Parish Iverson, Medical history significant for atrial fibrillation/a flutter with cardioversion in the past, chronic diastolic heart failure, oxygen dependent COPD with chronic respiratory failure, obstructive sleep apnea with BiPAP use, former smoker. He was recently admitted to this hospital back in March and was treated for respiratory failure requiring intubation and ICU monitoring from CHF/COPD and was also treated for lower extremity wound and cellulitis to the left leg. He was discharged home with homecare services in place. Patient presents to hospital with main complaint of weakness and pain in his lower extremity. He ports feeling numbness and tingling in his ankles and pain and had went to [facility] where he had xrays done that he states were negative. Since he has had progressive pain mostly in the left knee and foot/foot pad and ankle also though in the right knee/foot/ankle as well. He states the pain is 10/10 like pins and needles and making it difficult to ambulate. He denies shortness of breath, he denies chest pain, no chest pressure. No recent illness, No recent falls. Denies back pain, denies loss of bladder or bowel. No fever or chills. No history reported of diabetes. Patient does wear oxygen chronically, he has not had to increase his oxygen demands at home. Procalcitonin is 0.18, TSH 0.449 with T4 1.12, Vitamin B12 362, folate level 24.60. HgbA1C 5.9. He has no white count on admission. Troponin negative, proBNP 1120. Creatinine is elevated at 1.73. Chest xray showing basilar atelectasis vs pneumonia and mild central venous congestion versus interstitial pneumonitis. EKG showing atrial fibrillation with heart rate in the 70s. He was evaluated by cardiology and was treated with IV lasix and transitioned to oral lasix on discharge. He was treated with IV steroids and increased dose in lyrics for the joint pain with some improvement. He had arterial doppled done and ankle brachial index was within normal limits bilaterally. He was scheduled to undergo outpatient stress test on 07/13/2022 which this has been cancelled and will be rescheduled outpatient. He was evaluated by physical therapy and will discharge to subacute rehab. 07/13/2022 Patient is evaluated today after ambulating in the hallway. He appears to be making progress and will discharge to subacute rehab today. He currently denies chest pain, no shortness of breath, no nausea, vomiting or diarrhea. He has been weaned to oral steroids and blood glucose has improved today and will continue on s/s insulin at rehab. He reports generalized parasthesias to the lower extremity more prominent in the knees and ankle joints. He will be discharged on scheduled pregabalin and recommended to see neurology. He continues on 2 L nasal cannula which he wears chronically. His lungs are clear today. S1 S2 auscultated, alert x3 and focal neurological exam. Most recent labs showing sodium 137, potassium 4.8, BUN 70, creatinine 1.48, blood glucose 170s. He is afebrile, heart rate 77, blood pressure 132/79, 94% on 2L nasal cannula. Please see medication reconciliation for a list of current medication. Thank you for allowing us to participate in the care of this patient. The impression and plan of care has been dictated by Meri Galvan, Nurse Practitioner as directed. Dr. Denisse MD I have performed a history and physical examination and medical decision making of this patient, discussed the same with the dictator, and agree with the dictators assessment and plan as written, documented as a scribe. Based on total visit time, I have performed more than 50% of this visit. Patient Condition at Discharge: Stable Plan - Discharge Summary Discharge Rx Participant: Yes New Discharge Prescriptions: New predniSONE [Deltasone] 40 mg PO DAILY #6 tab Pregabalin [Lyrica] 150 mg PO BID #4 cap INSULIN ASPART (NovoLOG) [NovoLOG (formulary)] 0 unit SQ ACHS each Continue Ipratropium-Albuterol Nebulize [Duoneb 0.5 mg-3 mg/3 ml Soln] 3 ml INHALATION RT-Q2H PRN each PRN Reason: Shortness Of Breath Or Wheezing Sertraline [Zoloft] 50 mg PO HS #30 tab metOLazone 2.5 mg PO DAILY #30 tablet Metoprolol Succinate (ER) [Toprol XL] 50 mg PO DAILY hydrOXYzine pamoate 50 mg PO HS PRN PRN Reason: ANXIETY/INSOMNIA metOLazone [Zaroxolyn] 2.5 mg PO DAILY Apixaban [Eliquis] 5 mg PO BID #60 tab Albuterol Sulfate [Proair Hfa] 2 puff INHALATION RT-Q4H PRN PRN Reason: Wheezing Budesonide/Glycopyr/Formoterol [Breztri Aerosphere Inhaler] 1 puff INHALATION RT-BID Furosemide [Lasix] 40 mg PO BID@0900,1600 tab acetaZOLAMIDE [Diamox] 250 mg PO DAILY #30 tablet dilTIAZem HCL [dilTIAZem HCL 24Hr ER (LA)] 360 mg PO DAILY dilTIAZem HCL [dilTIAZem HCL 24Hr ER (Xr)] 120 mg PO BID Losartan [Cozaar] 25 mg PO HS Discontinued Pregabalin [Lyrica] 75 mg PO TID PRN PRN Reason: Pain Discharge Medication List Apixaban [Eliquis] 5 mg PO BID #60 tab 05/13/21 [Rx] Albuterol Sulfate [Proair Hfa] 2 puff INHALATION RT-Q4H PRN 04/05/22 [History] Budesonide/Glycopyr/Formoterol [Breztri Aerosphere Inhaler] 1 puff INHALATION RT-BID 04/05/22 [History] Furosemide [Lasix] 40 mg PO BID@0900,1600 tab 04/17/22 [Rx] Ipratropium-Albuterol Nebulize [Duoneb 0.5 mg-3 mg/3 ml Soln] 3 ml INHALATION RT-Q2H PRN each 04/17/22 [Rx] Sertraline [Zoloft] 50 mg PO HS #30 tab 04/23/22 [Rx] acetaZOLAMIDE [Diamox] 250 mg PO DAILY #30 tablet 04/23/22 [Rx] metOLazone 2.5 mg PO DAILY #30 tablet 04/23/22 [Rx] Losartan [Cozaar] 25 mg PO HS 07/09/22 [History] Metoprolol Succinate (ER) [Toprol XL] 50 mg PO DAILY 07/09/22 [History] dilTIAZem HCL [dilTIAZem HCL 24Hr ER (LA)] 360 mg PO DAILY 07/09/22 [History] dilTIAZem HCL [dilTIAZem HCL 24Hr ER (Xr)] 120 mg PO BID 07/09/22 [History] hydrOXYzine pamoate 50 mg PO HS PRN 07/09/22 [History] metOLazone [Zaroxolyn] 2.5 mg PO DAILY 07/09/22 [History] INSULIN ASPART (NovoLOG) [NovoLOG (formulary)] 0 unit SQ ACHS each 07/13/22 [Rx] Pregabalin [Lyrica] 150 mg PO BID #4 cap 07/13/22 [Rx] predniSONE [Deltasone] 40 mg PO DAILY #6 tab 07/13/22 [Rx] Follow up Appointment(s)/Referral(s): Parish Iverson MD [Primary Care Provider] - 1-2 days Wali Garcia DO [STAFF PHYSICIAN] - 1 Week Tonia Ramos MD [STAFF PHYSICIAN] - 1 Week [facility] [REFERRING] - Rex Fernández MD [STAFF PHYSICIAN] - 1-2 Days Nathen Lam DO [STAFF PHYSICIAN] - 1 Week Activity/Diet/Wound Care/Special Instructions: Recommend to see neurology on discharge for further work up and evaluation patient states he already has an appointment made with a neurologist and will be varifying information. Continue on pregabalin for neuropathic pain and recommend tylenol Pending neurology evaluation he may benefit from pain management services outpatient as well. Continue short steroid taper and continue on oxygen 2 L nasal cannula Discharge Disposition: TRANSFER TO SNF/ECF
[2022-07-13 16:31] VITALS: BP 123/61; PULSE 73; TEMP 97.7
== END 2022-07-13 18:19 | DRG 291 ==
LOC: EC 12:51 → 3SCARD 17:45
PROVIDERS: ADMIT Hospitalist; ATTEND Hospitalist
DX: I13.0 Hypertensive heart and chronic kidney disease with heart failure and stage 1 through stage 4 chronic kidney disease, or unspecified chronic kidney disease (principal); I50.33 Acute on chronic diastolic (congestive) heart failure; I48.92 Unspecified atrial flutter; I48.19 Other persistent atrial fibrillation; J96.11 Chronic respiratory failure with hypoxia; J98.11 Atelectasis; N17.9 Acute kidney failure, unspecified; D64.9 Anemia, unspecified; F32.A Depression, unspecified; N18.30 Chronic kidney disease, stage 3 unspecified; M25.572 Pain in left ankle and joints of left foot; M25.571 Pain in right ankle and joints of right foot; Z91.013 Allergy to seafood; E11.21 Type 2 diabetes mellitus with diabetic nephropathy; E11.22 Type 2 diabetes mellitus with diabetic chronic kidney disease; I34.0 Nonrheumatic mitral (valve) insufficiency; J44.9 Chronic obstructive pulmonary disease, unspecified; Z99.81 Dependence on supplemental oxygen; G47.33 Obstructive sleep apnea (adult) (pediatric); R33.9 Retention of urine, unspecified; Z79.899 Other long term (current) drug therapy; Z79.01 Long term (current) use of anticoagulants
CPT/HCPCS: 36415; 71046; 80048; 80053; 82607; 82746; 83036; 83735; 83880; 84145; 84439; 84443; 84484; 85025; 85610; 85730; 93005; 93922; 94640; 94760; 96374; 96375; 99285

== ENCOUNTER → 2022-07-20 | Outpatient (CLI) | payer OTHER ==
[~2022-07-20] MED LIST changes: -LACTATED RINGERS 1,000 ML IV SCH; +REGADENOSON 0.4 MG/5 ML SYRINGE IV PRN; -SODIUM CHLORIDE 0.9% 1,000 ML IV SCH
--- NOTE | 2022-07-20 13:01 | CA ---
Lexiscan Nuclear Stress Test Report Name: Meir Abraham Exam Date: 07/20/2022 10:34 Exam Location: [facility] Ht (in): 72 Wt (lb): 320 BSA: 2.60 Ordering Phys: Carmine Dickerson MD Referring Phys: ralph, Technologist: Moisés Zamora Age: 57 Gender: M : 1965 Procedure CPT: Indications: Z01.818 ENCOUNTER FOR OTHER PREPROCEDURAL EXAMINAT ICD-10 Codes: Patient History: Medications: SEE LIST Meds past 24 hrs: Pretest Chest Pain: STRESS TEST Lexiscan Protocol Exercise Duration (min:sec): 02:[address] Depressions (mm): Angina Score: Antonio Score: Resting HR (bpm): 44 Peak HR (bpm): 50 Resting BP (mmHg): 92 / 67 Peak BP (mmHg): 94 / 54 MPHR: 161 Target HR: 137 % MPHR: 31 METS: 1.0 Total Dose: Peak Dose: Atropine: Double Product: 4700 BP Response: Stress Termination: PROTOCOL COMPLETE Stress Symptoms: NO SYMPTOMS Stress Summary: ECG ANALYSIS Resting ECG: Stress ECG: CONCLUSIONS Lexiscan cardiac stress test Heart rates in the 50s Blood pressure 92/67 mmHg Patient name atrial fibrillation No ECG evidence for ischemia Nuclear portion will be reported separately Dr. Carmine Dickerson MD (Electronically Signed) Final Date: 20 July 2022 13:00
--- NOTE | 2022-07-23 06:50 | NM ---
EXAMINATION TYPE: NM stress lexiscan cardiolite DATE OF EXAM: 07/20/2022 COMPARISON: NONE HISTORY: History of hypertension and COPD along with tobacco use in the past. Presurgical study. TECHNIQUE: After the intravenous administration of 9.7 mCi Tc 99m Sestamibi - Cardiolite resting SPE CT images acquired 45 minutes post injection. The patient received 0.4mg Lexiscan, 25.8 mCi Tc 99m Sestamibi - Stress images obtained [address] injection FINDINGS: Review of stress and rest SPECT images demonstrates poor uptake in the anterior left ventricular wall which shows improvement on stress images. No convincing evidence for reversible ischemia. Gated jhony lysis shows normal wall motion with an estimated left ventricular ejection fraction of 54 %. IMPRESSION: No scintigraphic evidence for reversible ischemia.
== END | disposition home or self-care (01) ==
LOC: RADNMMAIN 09:07
PROVIDERS: ATTEND Internal Medicine Clinical Cardiac Electrophysiology
DX: Z01.810 Encounter for preprocedural cardiovascular examination (principal); I10 Essential (primary) hypertension; J44.9 Chronic obstructive pulmonary disease, unspecified
CPT/HCPCS: 93017; 78452; A9500; J2785

== ENCOUNTER 2022-11-14 12:53 | Inpatient (IN) | payer OTHER ==
--- NOTE | 2022-11-14 13:58 | ED ---
General Adult HPI - General Source: patient, RN notes reviewed Mode of arrival: ambulatory Limitations: no limitations <Rainer Morales - Last Filed: 11/14/22 13:57> - History of Present Illness -: days(s) Radiation: extremity Quality: burning Consistency: constant Improves with: none Worsens with: none Associated Symptoms: shortness of breath Treatments Prior to Arrival: none <John Pearce - Last Filed: 11/27/22 03:29> - General Stated complaint: sob Time Seen by Provider: 11/14/22 13:57 - History of Present Illness Initial comments: This a 57-year-old male presents emergency Department from Dr. Robledo's office for evaluation or shortness breath, leg swelling and redness. Patient was recently in the hospital. He was sent back in secondary to his shortness of breath, leg swelling, ulcers and redness. Patient states is painful. Patient does have history of COPD and CHF. (Rainer Morales) This patient is a 57-year-old man with some underlying COPD presenting with complaint of shortness of breath as well as leg swelling and redness. Patient also has redness near left elbow. He had seen his stitch burnisher today Dr. Gregory, and was sent over here from the office. (John Pearce) - Related Data Home Medications Medication Instructions Recorded Confirmed Losartan [Cozaar] 25 mg PO HS 07/09/22 11/14/22 hydrOXYzine pamoate 50 mg PO HS PRN 07/09/22 11/14/22 Atorvastatin [Lipitor] 10 mg PO DAILY 08/01/22 11/14/22 Budesonide-Formot 160-4.5 Mcg 2 puff INHALATION RT-BID 08/01/22 11/14/22 [Symbicort 160-4.5 Mcg Inhaler] INSULIN ASPART (NovoLOG) [NovoLOG See Protocol SQ ACHS 09/04/22 11/14/22 (formulary)] traMADol HCL 50 mg PO Q6H PRN 09/04/22 11/14/22 Pregabalin [Lyrica] 100 mg PO TID 10/16/22 11/14/22 [place]-3/Dha/Epa/Fish Oil [Fish Oil 1 cap PO DAILY 11/14/22 11/14/22 1,000 mg Softgel] Spironolactone [Aldactone] 25 mg PO DAILY 11/14/22 11/14/22 Ubidecarenone [Coenzyme Q10] 200 mg PO DAILY 11/14/22 11/14/22 Previous Rx's Medication Instructions Recorded Apixaban [Eliquis] 5 mg PO BID #60 tab 05/13/21 Dapagliflozin Propanediol [Farxiga] 10 mg PO DAILY 30 Days #30 tab 09/10/22 Famotidine [Pepcid] 20 mg PO BID #60 tab 09/10/22 Melatonin 5 mg PO HS tab 09/10/22 Metoprolol Succinate (ER) [Toprol 100 mg PO DAILY 30 Days #30 tab 09/10/22 XL] busPIRone HCl [Buspar] 5 mg PO TID 30 Days #90 tab 09/10/22 dilTIAZem HCL [dilTIAZem HCL 24Hr 120 mg PO DAILY #0 09/10/22 ER (Xr)] Acetaminophen Tab [Tylenol] 650 mg PO Q4HR PRN tab 10/24/22 Bacitracin Zinc Oint 1 applic TOPICAL BID #1 each 10/24/22 Furosemide [Lasix] 40 mg PO DAILY #30 tablet 10/24/22 Insulin Detemir (Levemir) [Levemir] 15 unit SQ DAILY@0700 #5 each 10/24/22 Ipratropium-Albuterol Nebulize 3 ml INHALATION RT-QID #120 each 10/24/22 [Duoneb 0.5 mg-3 mg/3 ml Soln] Triamcinolone 0.1% Cream [Kenalog 1 applic TOPICAL BID #1 each 10/24/22 0.1% Cream] Ciprofloxacin HCl [Cipro] 500 mg PO Q12HR 10 Days #20 tab 11/20/22 Doxycycline Hyclate 100 mg PO BID 10 Days #20 tab 11/20/22 Ipratropium-Albuterol Nebulize 3 ml INHALATION RT-QID #120 each 11/20/22 [Duoneb 0.5 mg-3 mg/3 ml Soln] Allergies Allergy/AdvReac Type Severity Reaction Status Date / Time No Known Allergies Allergy Verified 11/14/22 17:24 Review of Systems ROS Other: All systems not noted in ROS Statement are negative. <Rainer Morales - Last Filed: 05/17/23 13:57> ROS Other: All systems not noted in ROS Statement are negative. Constitutional: Reports: weakness. Denies: fever, chills Respiratory: Reports: dyspnea, wheezes Cardiovascular: Reports: edema. Denies: chest pain, palpitations, syncope Gastrointestinal: Denies: abdominal pain, nausea, vomiting Genitourinary: Denies: dysuria, hematuria Musculoskeletal: Denies: back pain Skin: Reports: lesions, change in color. Denies: rash Neurological: Denies: headache, weakness <KelseytlJohn - Last Filed: 11/27/22 03:29> ROS Statement: Those systems with pertinent positive or pertinent negative responses have been documented in the HPI. 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 History of Any Multi-Drug Resistant Organisms: MRSA Date of last positivie culture/infection: 04/05/22 MDRO Source:: Left Leg Past Surgical History: Hernia Repair, Joint Replacement, Orthopedic Surgery Additional Past Surgical History / Comment(s): RT ARMAND, rt foot SX, Past Anesthesia/Blood Transfusion Reactions: No Reported Reaction Past Psychological History: Depression Smoking Status: Former smoker Past Alcohol Use History: None Reported Past Drug Use History: None Reported - Past Family History Mother Family Medical History: No Reported History <Rainer Morales - Last Filed: 11/14/22 13:57> General Exam <Rainer Morales - Last Filed: 11/14/22 13:57> General appearance: alert Head exam: Present: atraumatic, normocephalic Eye exam: Present: normal appearance. Absent: scleral icterus, conjunctival injection Neck exam: Present: normal inspection Respiratory exam: Present: respiratory distress (Mild tachypnea), wheezes. Absent: rales, rhonchi, stridor, accessory muscle use Cardiovascular Exam: Present: regular rate, normal rhythm, normal heart sounds. Absent: systolic murmur, diastolic murmur, rubs, gallop GI/Abdominal exam: Present: soft. Absent: distended, tenderness, guarding, rebound, rigid, mass Extremities exam: Present: pedal edema, other (Stasis changes bilaterally. There is also circumferential erythema, warmth to the left lower extremity c onsistent with cellulitis. There are weeping ulcers). Absent: calf tenderness Back exam: Present: normal inspection. Absent: CVA tenderness (R), CVA tenderness (L) Neurological exam: Present: alert, oriented X3 Skin exam: Present: warm, dry, erythema, vesicles. Absent: intact, normal color <John Pearce - Last Filed: 11/27/22 03:29> - General Exam Comments Initial Comments: Visual Physical Exam Vital signs reviewed General: Well-appearing, nontoxic, no acute distress. Head: Normocephalic, atraumatic Eyes: PERRLA, EOMI ENT: Airway patent Chest: Nonlabored breathing Skin: No visual rash, normal skin tone Neuro: Alert and oriented 3 Musculoskeletal: No gross abnormalities (Rainer Morales) Course Vital Signs 11/14/22 11/14/22 11/14/22 13:56 16:56 17:00 Temperature 98.3 F Pulse Rate 62 100 122 H Pulse Rate [ Bilateral Dorsalis Pedis] Respiratory 24 22 Rate Blood Pressure 144/66 105/87 O2 Sat by Pulse 92 L 94 L Oximetry 11/14/22 11/14/22 11/14/22 17:07 18:19 19:10 Temperature Pulse Rate 124 H 108 H Pulse Rate [ 108 H Bilateral Dorsalis Pedis] Respiratory 24 22 Rate Blood Pressure 113/88 O2 Sat by Pulse 95 Oximetry 11/14/22 11/14/22 11/15/22 21:00 22:58 02:00 Temperature Pulse Rate 99 104 H 83 Pulse Rate [ Bilateral Dorsalis Pedis] Respiratory 20 20 18 Rate Blood Pressure 101/60 118/88 112/69 O2 Sat by Pulse 93 L 94 L 97 Oximetry 11/15/22 11/15/22 11/15/22 06:00 08:12 08:20 Temperature 98.5 F Pulse Rate 99 99 100 Pulse Rate [ Bilateral Dorsalis Pedis] Respiratory 20 18 18 Rate Blood Pressure 106/69 O2 Sat by Pulse 95 97 Oximetry 11/15/22 11/15/22 11/15/22 09:58 11:52 11:59 Temperature 97.8 F Pulse Rate 131 H 118 H 111 H Pulse Rate [ Bilateral Dorsalis Pedis] Respiratory 20 20 18 Rate Blood Pressure 106/89 O2 Sat by Pulse 97 Oximetry 11/15/22 12:23 Temperature 98.7 F Pulse Rate 134 H Pulse Rate [ Bilateral Dorsalis Pedis] Respiratory 18 Rate Blood Pressure 110/68 O2 Sat by Pulse 98 Oximetry EKG Findings - EKG Results: EKG: interpreted by ERMD, normal axis EKG shows: atrial fibrillation (Rate 94 bpm) - Blocks, [place], Hypertrophy, ST Abn: Repolarization changes or abnormalities: ST or T wave suggestive of ischemia <John Pearce - Last Filed: 11/27/22 03:29> Medical Decision Making - Lab Data Result diagrams: 11/20/22 06:00 11/20/22 06:00 <John Pearce - Last Filed: 11/27/22 03:29> - Medical Decision Making Patient's 57-year-old man sent here from his stitch burnisher to have further evaluation and follow-up admission. On the exam, the patient does have COPD exacerbation, has some edema and probable mild CHF exacerbation, there is also cellulitis especially of the left lower extremity. Patient be admitted, case discussed with admitting physician. Treatment started for these conditions. The patient had chest x-ray which I interpreted as showing cardiomegaly and vascular congestion consistent with CHF exacerbation. No pneumothorax Was pt. sent in by a medical professional or institution (, PA, TELEVISION AGENT, urgent care, hospital, or shelter...) When possible be specific @ -[Yesterday patient is sent from the stitch burnisher office to have further evaluation and probable admission Did you speak to anyone other than the patient for history (EMS, parent, family, police, friend...)? What history was obtained from this source @ -[No] Did you review nursing and triage notes (agree or disagree)? Why? @ -[I reviewed and agree with nursing and triage notes] Were old charts reviewed (outside hosp., previous admission, EMS record, old EKG, old radiological studies, urgent care reports/EKG's, shelter records)? Report findings @ -old charts were reviewed Differential Diagnosis (chest pain, altered mental status, abdominal pain women, abdominal pain men, vaginal bleeding, weakness, fever, dyspnea, syncope, headache, dizziness, GI bleed, back pain, seizure, CVA, palpatations, mental health, musculoskeletal)? @ -[Differential Dyspnea: Coronary syndrome, arrhythmia, tamponade, asthma, COPD, pulmonary embolism, pneumonia, pneumothorax, pulmonary effusion, anaphylaxis, diabetic ketoacidosis, flailed chest, pulmonary contusion, diaphragmatic rupture, anemia, neuromuscular, this is not meant to be an all-inclusive list. EKG interpreted by me (3pts min.). @ -[As above] X-rays interpreted by me (1pt min.). @ -[As above CT interpreted by me (1pt min.). @ -[None done] U/S interpreted by me (1pt. min.). @ -[None done] What testing was considered but not performed or refused? (CT, X-rays, U/S, labs)? Why? @ -[None] What meds were considered but not given or refused? Why? @ -[None] Did you discuss the management of the patient with other professionals (professionals i.e. , PA, TELEVISION AGENT, lab, RT, psych nurse, clinical social work therapist, lpn care manager, teacher, debt recovery officer, heel caser)? Give summary @ -[Case is discussed with admitting physician Was smoking cessation discussed for >3mins.? @ -[No] Was critical care preformed (if so, how long)? @ -[No] Were there social determinants of health that impacted care today? How? (Homelessness, low income, unemployed, alcoholism, drug addiction, transportation, low edu. Level, literacy, decrease access to med. care, custodial, rehab)? @ -[No] Was there de-escalation of care discussed even if they declined (Discuss DNR or withdrawal of care, Hospice)? DNR status @ -[No] What co-morbidities impacted this encounter? (DM, HTN, Smoking, COPD, CAD, Cancer, CVA, ARF, Chemo, Hep., AIDS, mental health diagnosis, sleep apnea, morbid obesity)? @ -[He has underlying cardiac disease and morbid obesity Was patient admitted / discharged? Hospital course, mention meds given and route, prescriptions, significant lab abnormalities, going to OR and other pertinent info. @ -[Patient is admitted for further treatment as well as pulmonology and cardiology consultation and infectious disease Undiagnosed new problem with uncertain prognosis? @ -[No] Drug Therapy requiring intensive monitoring for toxicity (Heparin, Nitro, Ins ulin, Cardizem)? @ -[No] Were any procedures done? @ -[No] Diagnosis/symptom? @ -[Acute lower extremity cellulitis Acute exacerbation of congestive heart failure Acute, or Chronic, or Acute on Chronic? @ -[default] Uncomplicated (without systemic symptoms) or Complicated (systemic symptoms)? @ -[Complicated Side effects of treatment? @ -[No] Exacerbation, Progression, or Severe Exacerbation? @ -[No] Poses a threat to life or bodily function? How? (Chest pain, [place], OR, pneumonia, PE, COPD, DKA, ARF, appy, cholecystitis, CVA, Diverticulitis, Homicidal, Suicidal, threat to staff... and all critical care pts) @ -[Yes (John Pearce) - Lab Data Lab Results 11/14/22 11/14/22 11/14/22 Range/Units 16:15 16:15 16:15 WBC 7.0 (3.8-10.6) k/uL RBC 4.73 (4.30-5.90) m/uL Hgb 13.5 (13.0-17.5) gm/dL Hct 40.9 (39.0-53.0) % MCV 86.3 (80.0-100.0) fL MCH 28.4 (25.0-35.0) pg MCHC 32.9 (31.0-37.0) g/dL RDW 16.5 H (11.5-15.5) % Plt Count 274 (150-450) k/uL MPV 8.1 Neutrophils % 69 % Lymphocytes % 14 % Monocytes % 9 % Eosinophils % 3 % Basophils % 0 % Neutrophils # 4.8 (1.3-7.7) k/uL Lymphocytes # 1.0 (1.0-4.8) k/uL Monocytes # 0.6 (0-1.0) k/uL Eosinophils # 0.2 (0-0.7) k/uL Basophils # 0.0 (0-0.2) k/uL Hypochromasia Slight Poikilocytosis Moderate Anisocytosis Slight PT 10.6 (9.0-12.0) sec INR 1.0 (<1.2) APTT 23.7 (22.0-30.0) sec D-Dimer 1.80 H (<0.60) mg/L FEU Sodium 138 (137-145) mmol/L Potassium 5.5 H (3.5-5.1) mmol/L Chloride 97 L (98-107) mmol/L Carbon Dioxide 35 H (22-30) mmol/L Anion Gap 6 mmol/L BUN 43 H (9-20) mg/dL Creatinine 1.64 H (0.66-1.25) mg/dL Est GFR (CKD-EPI)AfAm 52 (>60 ml/min/1.73 sqM) Est GFR (CKD-EPI)NonAf 45 (>60 ml/min/1.73 sqM) Glucose 88 (74-99) mg/dL Plasma Lactic Acid Ankur (0.7-2.0) mmol/L Calcium 8.4 (8.4-10.2) mg/dL Total Bilirubin 0.6 (0.2-1.3) mg/dL AST 38 (17-59) U/L ALT 54 H (4-49) U/L Alkaline Phosphatase 69 (38-126) U/L Troponin I (0.000-0.034) ng/mL NT-Pro-B Natriuret Pep pg/mL Total Protein 6.4 (6.3-8.2) g/dL Albumin 3.7 (3.5-5.0) g/dL 11/14/22 11/14/22 11/14/22 Range/Units 16:15 16:15 16:15 WBC (3.8-10.6) k/uL RBC (4.30-5.90) m/uL Hgb (13.0-17.5) gm/dL Hct (39.0-53.0) % MCV (80.0-100.0) fL MCH (25.0-35.0) pg MCHC (31.0-37.0) g/dL RDW (11.5-15.5) % Plt Count (150-450) k/uL MPV Neutrophils % % Lymphocytes % % Monocytes % % Eosinophils % % Basophils % % Neutrophils # (1.3-7.7) k/uL Lymphocytes # (1.0-4.8) k/uL Monocytes # (0-1.0) k/uL Eosinophils # (0-0.7) k/uL Basophils # (0-0.2) k/uL Hypochromasia Poikilocytosis Anisocytosis PT (9.0-12.0) sec INR (<1.2) APTT (22.0-30.0) sec D-Dimer (<0.60) mg/L FEU Sodium (137-145) mmol/L Potassium (3.5-5.1) mmol/L Chloride (98-107) mmol/L Carbon Dioxide (22-30) mmol/L Anion Gap mmol/L BUN (9-20) mg/dL Creatinine (0.66-1.25) mg/dL Est GFR (CKD-EPI)AfAm (>60 ml/min/1.73 sqM) Est GFR (CKD-EPI)NonAf (>60 ml/min/1.73 sqM) Glucose (74-99) mg/dL Plasma Lactic Acid Ankur 1.4 (0.7-2.0) mmol/L Calcium (8.4-10.2) mg/dL Total Bilirubin (0.2-1.3) mg/dL AST (17-59) U/L ALT (4-49) U/L Alkaline Phosphatase (38-126) U/L Troponin I <0.012 (0.000-0.034) ng/mL NT-Pro-B Natriuret Pep 3640 pg/mL Total Protein (6.3-8.2) g/dL Albumin (3.5-5.0) g/dL Critical Care Time Critical Care Time: Yes (30 minutes) <John Pearce - Last Filed: 11/27/22 03:29> Disposition <Rainer Morales - Last Filed: 11/14/22 13:57> <John Pearce - Last Filed: 11/27/22 03:29> Clinical Impression: COPD (chronic obstructive pulmonary disease), Cellulitis, Respiratory acidosis, CHF (congestive heart failure) Disposition: ADMITTED IP TO THIS [facility] Condition: Poor
[2022-11-14] MEDS ORDERED: VANCOMYCIN IV PER PHARMACY 1 EACH MISC MISCELLANE PRN (15:18)
[2022-11-14] MEDS ORDERED: MORPHINE SULFATE 4 MG/ML SYRINGE IV STA ×2 (15:18→22:38)
[2022-11-14] MEDS ORDERED: ALBUTEROL NEBULIZED 2.5 MG/3 ML INHALATION STA (15:19)
[2022-11-14] MEDS ORDERED: VANCOMYCIN 2,500 MG in SODIUM CHLORIDE 0.9% 500 ML 500 ML IVPB STA (15:24)
--- NOTE | 2022-11-14 15:32 | XR ---
EXAMINATION TYPE: XR chest 2V DATE OF EXAM: 11/14/2022 3:28 PM COMPARISON: Chest radiographs from 10/16/2022 TECHNIQUE: XR chest 2V Frontal and lateral views of the chest. CLINICAL INDICATION:Male, 57 years old with history of difficulty breathing; FINDINGS: Lungs/Pleura: There is no evidence of pleural effusion, focal consolidation, or pneumothorax. Pulmonary vascularity: Pulmonary vascular congestion. Heart/mediastinum: Cardiomediastinal silhouette is enlarged and stable. Musculoskeletal: No acute osseous pathology. Other findings: None IMPRESSION: Cardiomegaly and mild pulmonary vascular congestion. Correlate with BNP for congestive heart failure.
[2022-11-14 16:44] LABS: Anisocytosis Slight; Basophils % (A) 0 %; Eosinophils # (A) 0.2 k/uL (0-0.7); Eosinophils % (A) 3 %; HCT 40.9 % (39.0-53.0); HGB 13.5 gm/dL (13.0-17.5); Hypochromasia Slight; Lymphocytes % (A) 14 %; MCH 28.4 pg (25.0-35.0); MCHC 32.9 g/dL (31.0-37.0); MCV 86.3 fL (80.0-100.0); Mean Platelet Volume 8.1; Monocytes # (A) 0.6 k/uL (0-1.0); Monocytes % (A) 9 %; Neutrophils # (A) 4.8 k/uL (1.3-7.7); Neutrophils % (A) 69 %; Platelet Count 274 k/uL (150-450); Poikilocytosis Moderate; RBC 4.73 m/uL (4.30-5.90); RDW 16.5 % (11.5-15.5)
[2022-11-14 16:47] LABS: Albumin 3.7 g/dL (3.5-5.0); Calcium 8.4 mg/dL (8.4-10.2); Total Bilirubin 0.6 mg/dL (0.2-1.3); Total Protein 6.4 g/dL (6.3-8.2)
[2022-11-14 16:55] LABS: Partial Thromboplastin Time 23.7 sec (22.0-30.0); Prothrombin Time 10.6 sec (9.0-12.0)
[2022-11-14 17:06] LABS: Potassium 5.5 mmol/L (3.5-5.1)
[2022-11-14] MEDS ORDERED: FUROSEMIDE 10 MG/ML 4 ML VIAL IV STA (19:09)
[2022-11-14] MEDS ORDERED: NALOXONE 0.4 MG/ML 1 ML VIAL IV PRN (20:22)
[2022-11-14] MEDS ORDERED: ACETAMINOPHEN TAB 325 MG TAB PO PRN (20:22)
[2022-11-14] MEDS ORDERED: ONDANSETRON 4 MG/2 ML VIAL IVP PRN (20:22)
[2022-11-14] MEDS ORDERED: MAG HYDROX/AL HYDROX/SIMETH 30 ML CUP PO PRN (20:22)
[2022-11-14] MEDS: SODIUM CHLORIDE 0.9% 1,000 ML IV SCH (21:23)
[2022-11-14] MEDS: FAMOTIDINE 20 MG TAB PO SCH (21:23)
[2022-11-14 23:33] LABS: VBG PH 7.32 (7.31-7.41)
[2022-11-15] MEDS ORDERED: HEPARIN SODIUM,PORCINE/PF 5,000 UNIT/0.5 ML SYRINGE SQ SCH
[2022-11-15] MEDS ORDERED: IPRATROPIUM-ALBUTEROL 3 ML NEB INHALATION PRN (04:26)
[2022-11-15] MEDS ORDERED: DEXTROSE 50% SYRINGE 50 ML IVP PRN ×2 (04:29)
--- NOTE | 2022-11-15 04:33 | P.CNPUL ---
History of Present Illness Consult date: 11/15/22 Requesting physician: John Pearce Reason for consult: dyspnea Chief complaint: Shortness of breath and lower extremity swelling History of present illness: I am seeing this patient in new consultation today 10/17/2022 in the emergency room for a likely mild CHF exacerbation and cellulitis. Patient is a 57-year-old white male with past medical history of atrial fibrillation, congestive heart failure, severe COPD with an FEV1 22% of predicted, oxygen dependent on 2 L nasal cannula at home, obstructive sleep apnea with home VPAP machine, hyperlipidemia, hypertension, obesity, chronic kidney disease stage III, lower extremity edema and cellulitis. Patient does follow with Dr. Gregory for management of his COPD and obstructive sleep apnea, and was sent over from the office yesterday for progressive shortness of breath, worsening lower extremity swelling, and erythema. Patient's symptoms have progressively worsened since his recent hospital discharge last month. He reports shortness of breath on exertion and when lying flat. He also reports an associated 30 pound weight gain over last couple days. Bilateral lower extremities are severely edematous and weeping. There are multiple open sores and his legs are more erythematous than baseline according to the patient. His legs are very tender to palpation. He also has a left upper extremity area of erythema and induration concerning for cellulitis. Patient is currently sitting up in bed, on 4 L nasal cannula, in no acute distress. Chest x-ray on arrival showed cardiomegaly and mild pulmonary vascular congestion. NT proBNP was elevated at 3640. He was given one dose of Lasix 40 mg in the emergency room, and he has r eportedly used the urinal multiple times. CBC on arrival is unremarkable. BMP showed a sodium 138, potassium 5.5, chloride 97, serum CO2 chronically elevated at 35, BUN 43, creatinine 1.64, glucose 88. Normal saline is infusing at 20 ML's per hour. Lactic acid level was 1.4. Troponin negative 1. ECG shows atrial fibrillation with controlled ventricular rate and no obvious ischemic changes. D-dimer was elevated, and he is unable to undergo chest CTA due to renal function. Vital signs are stable at this time. Patient will be transferred to the cardiac stepdown unit once bed available. Review of Systems REVIEW OF SYSTEMS: CONSTITUTIONAL: Admits to recent 30 pound weight gain. EYES: Denies change in vision. EARS, NOSE, MOUTH, THROAT: Denies headaches, denies sore throat. CARDIOVASCULAR: Denies chest pain, palpitations or syncopal episodes. RESPIRATORY: Denies cough, congestion or hemoptysis. Admits shortness of breath as described in HPI GASTROINTESTINAL: Denies change in appetite, abdominal pain, nausea and vomiting, or diarrhea GENITOURINARY: Denies hematuria, denies infections. MUSKULOSKELETAL: Denies pain, denies swelling. INTEGUMENTARY: Admits bilateral lower extremity swelling along with erythema and open sores. There is also a concerning area of redness and induration on his left upper arm. NEUROLOGICAL: Denies recent memory loss, no recent seizure activity. PSYCHIATRIC: Denies anxiety, denies depression. HEMATOLOGIC/LYMPHATIC: Denies anemia, denies enlarged lymph node 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 History of Any Multi-Drug Resistant Organisms: MRSA Date of last positivie culture/infection: 04/05/22 MDRO Source:: Left Leg Past Surgical History: Hernia Repair, Joint Replacement, Orthopedic Surgery Additional Past Surgical History / Comment(s): RT ARMAND, rt foot SX, Past Anesthesia/Blood Transfusion Reactions: No Reported Reaction Past Psychological History: Depression Smoking Status: Former smoker Past Alcohol Use History: None Reported Past Drug Use History: None Reported - Past Family History Mother Family Medical History: No Reported History Medications and Allergies Home Medications Medication Instructions Recorded Confirmed Type Apixaban [Eliquis] 5 mg PO BID #60 tab 05/13/21 11/14/22 Rx Albuterol Sulfate [Proair Hfa] 2 puff INHALATION RT-Q4H PRN 04/05/22 11/14/22 History Losartan [Cozaar] 25 mg PO HS 07/09/22 11/14/22 History hydrOXYzine pamoate 50 mg PO HS PRN 07/09/22 11/14/22 History Atorvastatin [Lipitor] 10 mg PO DAILY 08/01/22 11/14/22 History Budesonide-Formot 160-4.5 Mcg 2 puff INHALATION RT-BID 08/01/22 11/14/22 History [Symbicort 160-4.5 Mcg Inhaler] INSULIN ASPART (NovoLOG) [NovoLOG See Protocol SQ ACHS 09/04/22 11/14/22 History (formulary)] traMADol HCL 50 mg PO Q6H PRN 09/04/22 11/14/22 History Dapagliflozin Propanediol [Farxiga] 10 mg PO DAILY 30 Days #30 tab 09/10/22 11/14/22 Rx Famotidine [Pepcid] 20 mg PO BID #60 tab 09/10/22 11/14/22 Rx Melatonin 5 mg PO HS tab 09/10/22 11/14/22 Rx Metoprolol Succinate (ER) [Toprol 100 mg PO DAILY 30 Days #30 tab 09/10/22 11/14/22 Rx XL] busPIRone HCl [Buspar] 5 mg PO TID 30 Days #90 tab 09/10/22 11/14/22 Rx dilTIAZem HCL [dilTIAZem HCL 24Hr 120 mg PO DAILY #0 09/10/22 11/14/22 Rx ER (Xr)] Pregabalin [Lyrica] 100 mg PO TID 10/16/22 11/14/22 History Acetaminophen Tab [Tylenol] 650 mg PO Q4HR PRN tab 10/24/22 11/14/22 Rx Bacitracin Zinc Oint 1 applic TOPICAL BID #1 each 10/24/22 11/14/22 Rx Furosemide [Lasix] 40 mg PO DAILY #30 tablet 10/24/22 11/14/22 Rx Insulin Detemir (Levemir) [Levemir] 15 unit SQ DAILY@0700 #5 each 10/24/22 11/14/22 Rx Ipratropium-Albuterol Nebulize 3 ml INHALATION RT-QID #120 each 10/24/22 11/14/22 Rx [Duoneb 0.5 mg-3 mg/3 ml Soln] Triamcinolone 0.1% Cream [Kenalog 1 applic TOPICAL BID #1 each 10/24/22 11/14/22 Rx 0.1% Cream] [place]-3/Dha/Epa/Fish Oil [Fish Oil 1 cap PO DAILY 11/14/22 11/14/22 History 1,000 mg Softgel] Spironolactone [Aldactone] 25 mg PO DAILY 11/14/22 11/14/22 History Ubidecarenone [Coenzyme Q10] 200 mg PO DAILY 11/14/22 11/14/22 History Allergies Allergy/AdvReac Type Severity Reaction Status Date / Time No Known Allergies Allergy Verified 11/14/22 17:24 Physical Exam Vitals: Vital Signs Temp Pulse Pulse Resp BP Pulse Ox 11/15/22 02:00 83 18 112/69 97 11/14/22 22:58 104 H 20 118/88 94 L 11/14/22 21:00 99 20 101/60 93 L 11/14/22 19:10 108 H 22 11/14/22 18:19 108 H 24 113/88 95 11/14/22 17:07 124 H 11/14/22 17:00 122 H 11/14/22 16:56 100 22 105/87 94 L 11/14/22 13:56 98.3 F 62 24 144/66 92 L Intake and Output 11/14/22 11/14/22 11/15/22 14:59 22:59 06:59 Other: Weight 167.829 kg GENERAL EXAM: Alert, morbidly obese 57-year-old white male , comfortable in no apparent distress. HEAD: Normocephalic and atraumatic EYES: Normal reaction of pupils, equal size. NOSE: Clear with pink turbinates. THROAT: No erythema or exudates. NECK: No masses, no JVD. CHEST: No chest wall deformity. LUNGS: Equal air entry with no crackles, wheeze, rhonchi or dullness. On 4 L nasal cannula. No conversational dyspnea or accessory muscle use.. CVS: S1 and S2 normal with no audible murmur, irregular rhythm. No extra heart sounds ABDOMEN: Obese abdomen. No hepatosplenomegaly, active bowel sounds, no guarding or rigidity. SPINE: No scoliosis or deformity SKIN: Bilateral lower extremity erythema and weeping ulcerations. There is also an area of induration and erythema on the left upper extremity. CENTRAL NERVOUS SYSTEM: No focal deficits, tone is normal in all 4 extremities. EXTREMITIES: There is severe bilateral lower extremity edema. No clubbing, or cyanosis. Peripheral pulses are intact. Results - Laboratory Findings CBC and BMP: 11/14/22 16:15 11/14/22 16:15 PT/INR, D-dimer PT 10.6 sec (9.0-12.0) 11/14/22 16:15 INR 1.0 (<1.2) 11/14/22 16:15 D-Dimer 1.80 mg/L FEU (<0.60) H 11/14/22 16:15 Abnormal lab findings: Abnormal Labs 11/14/22 11/14/22 11/14/22 16:15 16:15 16:15 RDW 16.5 H D-Dimer 1.80 H VBG pCO2 VBG HCO3 Potassium 5.5 H Chloride 97 L Carbon Dioxide 35 H BUN 43 H Creatinine 1.64 H ALT 54 H 11/14/22 22:43 RDW D-Dimer VBG pCO2 77 H* VBG HCO3 38 H Potassium Chloride Carbon Dioxide BUN Creatinine ALT - Diagnostic Findings Chest x-ray: image reviewed Assessment and Plan Assessment: Acute on chronic hypoxemic and hypercapnic respiratory failure, likely related to a mild exacerbation of patient's diastolic heart failure. Currently on 4 L nasal cannula. Suspect bilateral lower extremity cellulitis Left upper arm carbuncle Patient's COPD seems stable. Patient does have very severe COPD with an FEV1 22% of predicted at baseline Atrial fibrillation with rapid ventricular rate, heart rate is better controlled ranging from 100 to 110 bpm Obstructive sleep apnea managed with home VPAP machine Diastolic heart failure. Preserved LV function and ejection fraction of 50-55% Hypertension Hyperlipidemia Chronic kidney disease stage III Chronic lower extremity edema Ex-smoker, with [id number] history Plan: Patient's medications, labs, chest x-ray reviewed Continue supplemental oxygen to maintain oxygen saturation 92% or greater Start bronchodilators, Symbicort inhaler Diurese the patient with Lasix Restart the patient's Eliquis and metoprolol At infectious disease consult Vital signs are stable Patient will be transferred to the selective care unit once bed available We will continue to follow I have personally seen and examined the patient, performed the documentation and the assessment and plan as written. Number of minutes spent on the visit:20 Time with Patient: Greater than 30
[2022-11-15 05:34] LABS: Glucose,Whole Blood 126 mg/dL (70-110)
[2022-11-15 08:03] LABS: Glucose,Whole Blood 98 mg/dL (70-110)
[2022-11-15] MEDS: SYMBICORT 160-4.5 MCG INHALER INHALATION SCH ×2 (08:11→20:00)
[2022-11-15] MEDS: IPRATROPIUM-ALBUTEROL 3 ML NEB INHALATION SCH ×4 (08:11→20:00)
[2022-11-15 08:13] LABS: Calcium 8.2 mg/dL (8.4-10.2); Potassium 4.7 mmol/L (3.5-5.1)
[2022-11-15] MEDS: INSULIN ASPART (NovoLOG) 100 UNIT/ML VIAL SQ SCH ×4 (09:02→21:47)
[2022-11-15] MEDS: METOPROLOL SUCCINATE (ER) 100 MG TAB.ER.24H PO SCH ×2 (09:10→09:11)
[2022-11-15] MEDS: APIXABAN 5 MG TAB PO SCH ×2 (09:11→21:44)
[2022-11-15] MEDS: FAMOTIDINE 20 MG TAB PO SCH ×2 (09:11→21:46)
[2022-11-15] MEDS: FUROSEMIDE 10 MG/ML 4 ML VIAL IV SCH ×2 (09:12→21:44)
[2022-11-15] MEDS ORDERED: FAMOTIDINE 20 MG TAB PO SCH (09:45)
[2022-11-15] MEDS ORDERED: MORPHINE SULFATE 2 MG/ML SYRINGE IVP STA (10:10)
[2022-11-15] MEDS: traMADol 50 MG TAB PO PRN (10:15)
[2022-11-15] MEDS: busPIRone HCl 5 MG TAB PO SCH ×3 (10:16→21:44)
[2022-11-15] MEDS: DILTIAZEM CD 120 MG CAP.ER.24H PO SCH (10:16)
[2022-11-15] MEDS: ATORVASTATIN 10 MG TAB PO SCH (10:16)
[2022-11-15] MEDS: PREGABALIN 100 MG CAP PO SCH ×3 (10:16→21:44)
[2022-11-15] MEDS: INSULIN DETEMIR (LEVEMIR) 100 UNIT/ML SYR SQ SCH (10:25)
[2022-11-15] MEDS: DAPAGLIFLOZIN PROPANEDIOL 10 MG TABLET PO SCH (11:33)
[2022-11-15 12:05] LABS: Glucose,Whole Blood 133 mg/dL (70-110)
--- NOTE | 2022-11-15 13:07 | P.HPIM ---
History of Present Illness H&P Date: 11/15/22 This is a 57 year old male with medical history of atrial fibrillation anticoagulated with eliquis, asthma, COPD, heart failure, hypertension, hyperlipidemia, sleep apnea with CPAP use, former smoker. Patient presented to the hospital with complaints of shortness of breath and leg swelling with redn ess he was sent in from PCPs office. Patient was recently admitted to the hospital from October 16 to October 24 for an acute COPD exacerbation and was discharged home. Patient does have multiple admissions for the same. Initial chest x-ray reveals cardiomegaly and mild pulmonary vascular congestion correlate with BNP for congestive heart failure. EKG showing atrial fibrillation with a heart rate of 94. This ST deviation and moderate T-wave abnormality consider anterior ischemia. Troponin level is negative, proBNP is 3640. Patient is a elevated potassium of 5.5, mild acute kidney injury BUN 43, creatinine 1.64. Id. is elevated at 1.80. Patient has no elevated white count. Patient is afebrile, currently on oxygen at 2-3 L of nasal cannula. Bilateral lower extremities left greater than right with significant redness and there are multiple ulcerations which are weeping and appear infected which will be cultured. Patient denies fever/chills at home. Denies chest pain, currently not complaining for shortness of breath. Complaining of significant neuropathic pain worse in the right toes. There is also a wound to the left elbow outer aspect which has significant area of induration and surrounding redness, patient states had purulent drainage. Surgery will be consulted for this. Patient will be admitted to the hospital for left leg cellulitis, shortness of breath in the COPD/CHF. Patient has been started on IV vancomycin, pulmonary and infectious disease service is consulted. Patient has been started on IV Lasix. REVIEW OF SYSTEMS: CONSTITUTIONAL: No fever, no malaise, no fatigue. HEENT: No recent visual problems or hearing problems. Denied any sore throat. CARDIOVASCULAR: No chest pain, orthopnea, PND, no palpitations, no syncope. PULMONARY: No shortness of breath, no cough, no hemoptysis. GASTROINTESTINAL: No diarrhea, no nausea, no vomiting, no abdominal pain. NEUROLOGICAL: No headaches, no weakness, no numbness. HEMATOLOGICAL: Denies any bleeding or petechiae. GENITOURINARY: Denies any burning micturition, frequency, or urgency. MUSCULOSKELETAL/RHEUMATOLOGICAL: Denies any joint pain, swelling, or any muscle pain. Reports neuropathic lower extremity pain as above. ENDOCRINE: Denies any polyuria or polydipsia. The rest of the 14-point review of systems is negative PHYSICAL EXAMINATION: GENERAL: The patient is alert and oriented x3, not in any acute distress. Well developed, well nourished. Obese. on 3L nasal cannula. HEENT: Pupils are round and equally reacting to light. EOMI. No scleral icterus. No conjunctival pallor. Normocephalic, atraumatic. No pharyngeal erythema. No thyromegaly. CARDIOVASCULAR: S1 and S2 present. No murmurs, rubs, or gallops. PULMONARY: Chest is clear to auscultation, no wheezing or crackles. Diminished. ABDOMEN: Soft, nontender, nondistended, normoactive bowel sounds. No palpable organomegaly. Obese. There is some redness to the periumbilical region. MUSCULOSKELETAL: No joint swelling or deformity. EXTREMITIES: +1 pitting lower extremity edema. NEUROLOGICAL: Gross neurological examination did not reveal any focal deficits. SKIN: No rashes. Bilateral lower extremity cellulitis right left greater than right with multiple ulcerations appear infected. Wound to the left elbow with induration and surrounding redness. Assessment and Plan Shortness of breath Mild acute on chronic heart failure with preserved EF on most recent echocardiogram Bilateral lower extremity cellulitis with multiple areas of ulceration from venous stasis, with sepsis present on admission left greater than right. Cellulitis and possible abscess to the left upper extremity near elbow with purulent drainage, pt has history of MRSA infection. History COPD/asthma Chronic hypoxic respiratory failure on 2L nasal cannula Acute on chronic renal failure Elevated DDimer rule out pulmonary embolism VQ scan ordered Left lower extremity cellulitis Chronic atrial fibrillation anticoagulated with eliquis Hypertension Hyperlipidemia Obstructive sleep apnea with CPAP use Depression Former smoker GI prophylaxis DVT prophylaxis as above Full Code Plan Continue IV lasix monitor intake and output IV vancomycin and infectious disease consultation General surgery consultation evaluation of possible abscess left upper extremity Pulmonary consultation pending VQ scan Resumed on appropriate home medication Wound culture taken of the left lower extremity wounds The impression and plan of care has been dictated by Meri Galvan, Nurse Practitioner as directed. Dr. Denisse MD I have performed a history and physical examination and medical decision making of this patient, discussed the same with the dictator, and agree with the dictators assessment and plan as written, documented as a scribe. Based on total visit time, I have performed more than 50% of this visit. 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 History of Any Multi-Drug Resistant Organisms: MRSA Date of last positivie culture/infection: 04/05/22 MDRO Source:: Left Leg Past Surgical History: Hernia Repair, Joint Replacement, Orthopedic Surgery Additional Past Surgical History / Comment(s): RT ARMAND, rt foot SX, Past Anesthesia/Blood Transfusion Reactions: No Reported Reaction Past Psychological History: Depression Smoking Status: Former smoker Past Alcohol Use History: None Reported Past Drug Use History: None Reported - Past Family History Mother Family Medical History: No Reported History Medications and Allergies Home Medications Medication Instructions Recorded Confirmed Type RX: Apixaban [Eliquis] 5 mg PO BID #60 tab 05/13/21 11/14/22 Rx RX: Albuterol Sulfate [Proair Hfa] 2 puff INHALATION RT-Q4H PRN 04/05/22 11/14/22 History RX: Losartan [Cozaar] 25 mg PO HS 07/09/22 11/14/22 History RX: hydrOXYzine pamoate 50 mg PO HS PRN 07/09/22 11/14/22 History RX: Atorvastatin [Lipitor] 10 mg PO DAILY 08/01/22 11/14/22 History RX: Budesonide-Formot 160-4.5 Mcg 2 puff INHALATION RT-BID 08/01/22 11/14/22 History [Symbicort 160-4.5 Mcg Inhaler] RX: INSULIN ASPART (NovoLOG) See Protocol SQ ACHS 09/04/22 11/14/22 History [NovoLOG (formulary)] RX: traMADol HCL 50 mg PO Q6H PRN 09/04/22 11/14/22 History RX: Dapagliflozin Propanediol 10 mg PO DAILY 30 Days #30 tab 09/10/22 11/14/22 Rx [Farxiga] RX: Famotidine [Pepcid] 20 mg PO BID #60 tab 09/10/22 11/14/22 Rx RX: Melatonin 5 mg PO HS tab 09/10/22 11/14/22 Rx RX: Metoprolol Succinate (ER) 100 mg PO DAILY 30 Days #30 tab 09/10/22 11/14/22 Rx [Toprol XL] RX: busPIRone HCl [Buspar] 5 mg PO TID 30 Days #90 tab 09/10/22 11/14/22 Rx RX: dilTIAZem HCL [dilTIAZem HCL 120 mg PO DAILY #0 09/10/22 11/14/22 Rx 24Hr ER (Xr)] RX: Pregabalin [Lyrica] 100 mg PO TID 10/16/22 11/14/22 History Furosemide [Lasix] 40 mg PO DAILY #30 tablet 10/24/22 11/14/22 Rx RX: Acetaminophen Tab [Tylenol] 650 mg PO Q4HR PRN tab 10/24/22 11/14/22 Rx RX: Bacitracin Zinc Oint 1 applic TOPICAL BID #1 each 10/24/22 11/14/22 Rx RX: Insulin Detemir (Levemir) 15 unit SQ DAILY@0700 #5 each 10/24/22 11/14/22 Rx [Levemir] RX: Ipratropium-Albuterol Nebulize 3 ml INHALATION RT-QID #120 each 10/24/22 11/14/22 Rx [Duoneb 0.5 mg-3 mg/3 ml Soln] RX: Triamcinolone 0.1% Cream 1 applic TOPICAL BID #1 each 10/24/22 11/14/22 Rx [Kenalog 0.1% Cream] [place]-3/Dha/Epa/Fish Oil [Fish Oil 1 cap PO DAILY 11/14/22 11/14/22 History 1,000 mg Softgel] Spironolactone [Aldactone] 25 mg PO DAILY 11/14/22 11/14/22 History Ubidecarenone [Coenzyme Q10] 200 mg PO DAILY 11/14/22 11/14/22 History Allergies Allergy/AdvReac Type Severity Reaction Status Date / Time No Known Allergies Allergy Verified 11/14/22 17:24 Physical Exam Vitals: Vital Signs Temp Pulse Pulse Resp BP Pulse Ox 11/15/22 08:20 100 18 11/15/22 08:12 99 18 97 11/15/22 06:00 98.5 F 99 20 106/69 95 11/15/22 02:00 83 18 112/69 97 11/14/22 22:58 104 H 20 118/88 94 L 11/14/22 21:00 99 20 101/60 93 L 11/14/22 19:10 108 H 22 11/14/22 18:19 108 H 24 113/88 95 11/14/22 17:07 124 H 11/14/22 17:00 122 H 11/14/22 16:56 100 22 105/87 94 L 11/14/22 13:56 98.3 F 62 24 144/66 92 L Results CBC & Chem 7: 11/14/22 16:15 11/15/22 07:23 Labs: Abnormal Lab Results - Last 24 Hours (Table) 11/14/22 11/14/22 11/14/22 Range/Units 16:15 16:15 16:15 RDW 16.5 H (11.5-15.5) % D-Dimer 1.80 H (<0.60) mg/L FEU VBG pCO2 (37-51) mmHg VBG HCO3 (24-28) mmol/L Potassium 5.5 H (3.5-5.1) mmol/L Chloride 97 L (98-107) mmol/L Carbon Dioxide 35 H (22-30) mmol/L BUN 43 H (9-20) mg/dL Creatinine 1.64 H (0.66-1.25) mg/dL Glucose (74-99) mg/dL POC Glucose (mg/dL) (70-110) mg/dL Calcium (8.4-10.2) mg/dL ALT 54 H (4-49) U/L 11/14/22 11/15/22 11/15/22 Range/Units 22:43 05:32 07:23 RDW (11.5-15.5) % D-Dimer (<0.60) mg/L FEU VBG pCO2 77 H* (37-51) mmHg VBG HCO3 38 H (24-28) mmol/L Potassium (3.5-5.1) mmol/L Chloride 96 L (98-107) mmol/L Carbon Dioxide 34 H (22-30) mmol/L BUN 40 H (9-20) mg/dL Creatinine 1.56 H (0.66-1.25) mg/dL Glucose 107 H (74-99) mg/dL POC Glucose (mg/dL) 126 H (70-110) mg/dL Calcium 8.2 L (8.4-10.2) mg/dL ALT (4-49) U/L Assessment and Plan Time with Patient: Less than 30
--- NOTE | 2022-11-15 15:14 | NM ---
EXAMINATION TYPE: NM pul vent and perfuse DATE OF EXAM: 11/15/2022 CLINICAL INDICATION: Male, 57 years old with history of R/O PE; COMPARISON: Radiograph 11/14/2022 TECHNIQUE: Utilizing inhalation of 64.9 mCi Tc 99m DTPA aerosol and intravenous injection of 5.3 mCi of Tc 99m MAA, ventilation and perfusion images are acquired post injection in multiple projections. FINDINGS: There is a moderate-sized fixed perfusion defect involving the left lung base. No mismatch perfusion defects are seen. There is clumping of tracer within the central airways which can be seen with COPD. IMPRESSION: 1. Intermediate probability for pulmonary embolus by PIOPED 2 criteria. 2. Clumping of tracer within the central airways which can be seen with COPD.
[2022-11-15 16:14] LABS: Glucose,Whole Blood 132 mg/dL (70-110)
[2022-11-15] MEDS ORDERED: MORPHINE SULFATE 2 MG/ML SYRINGE IVP PRN (16:25)
[2022-11-15] MEDS: VANCOMYCIN 2,500 MG in SODIUM CHLORIDE 0.9% 500 ML 500 ML IVPB SCH (18:23)
[2022-11-15 20:09] LABS: Glucose,Whole Blood 120 mg/dL (70-110)
[2022-11-15] MEDS: MELATONIN 5 MG TABLET PO SCH (21:44)
[2022-11-15] MEDS: HYDROcodone/APAP 5-325MG 1 EACH TAB PO PRN (22:14)
--- NOTE | 2022-11-15 22:27 | P.CONS ---
History of Present Illness - Reason for Consult Consult date: 11/15/22 Lower extremity cellulitis Requesting physician: Uche Mosley - Chief Complaint Increasing shortness of breath and left leg swelling redness x few days - History of Present Illness Patient is a 57-year-old male with a past medical history significant for COPD atrial fibrillation hypertension hyperlipidemia has been sent to the ER from his PCP office for evaluation of increasing shortness of breath leg swelling redness in this patient's symptom has been getting worse over the last few days before presentation to the hospital patient complaining of increasing shortness of breath on exertion jaya is also having increasing swelling of bilateral extremities patient with left leg did have some superficial ulceration from a ruptured blister and some purulent drainage patient complaining of pain to the lower extremities patient left leg to be sharp 7-8 out of 10 no radiation with associated swelling redness and some drainage patient did have some chills but denies high-grade fever on presentation to the hospital patient was afebrile and no fever has been recorded subsequently patient did have a normal white count did have mild elevated BUN/creatinine ALT was mildly elevated local culture obtained currently pending chest x-ray cardiomegaly mild pulmonary vascular congestion patient was started on vancomycin infectious disease was consulted for further management of antibiotic therapy Review of Systems Positive point and negatives has been mentioned in the HPI, complete review of systems was performed and all other systems are negative 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 History of Any Multi-Drug Resistant Organisms: MRSA Year Discovered:: 04/05/22 MDRO Source:: Left Leg Past Surgical History: Hernia Repair, Joint Replacement, Orthopedic Surgery Additional Past Surgical History / Comment(s): RT ARMAND, rt foot SX, Past Anesthesia/Blood Transfusion Reactions: No Reported Reaction Past Psychological History: Depression Smoking Status: Former smoker Past Alcohol Use History: None Reported Past Drug Use History: None Reported - Past Family History Mother Family Medical History: No Reported History Medications and Allergies Home Medications Medication Instructions Recorded Confirmed Type Apixaban [Eliquis] 5 mg PO BID #60 tab 05/13/21 11/14/22 Rx Losartan [Cozaar] 25 mg PO HS 07/09/22 11/14/22 History hydrOXYzine pamoate 50 mg PO HS PRN 07/09/22 11/14/22 History Atorvastatin [Lipitor] 10 mg PO DAILY 08/01/22 11/14/22 History Budesonide-Formot 160-4.5 Mcg 2 puff INHALATION RT-BID 08/01/22 11/14/22 History [Symbicort 160-4.5 Mcg Inhaler] INSULIN ASPART (NovoLOG) [NovoLOG See Protocol SQ ACHS 09/04/22 11/14/22 History (formulary)] traMADol HCL 50 mg PO Q6H PRN 09/04/22 11/14/22 History Dapagliflozin Propanediol [Farxiga] 10 mg PO DAILY 30 Days #30 tab 09/10/22 11/14/22 Rx Famotidine [Pepcid] 20 mg PO BID #60 tab 09/10/22 11/14/22 Rx Melatonin 5 mg PO HS tab 09/10/22 11/14/22 Rx Metoprolol Succinate (ER) [Toprol 100 mg PO DAILY 30 Days #30 tab 09/10/22 11/14/22 Rx XL] busPIRone HCl [Buspar] 5 mg PO TID 30 Days #90 tab 09/10/22 11/14/22 Rx dilTIAZem HCL [dilTIAZem HCL 24Hr 120 mg PO DAILY #0 09/10/22 11/14/22 Rx ER (Xr)] Pregabalin [Lyrica] 100 mg PO TID 10/16/22 11/14/22 History Acetaminophen Tab [Tylenol] 650 mg PO Q4HR PRN tab 10/24/22 11/14/22 Rx Bacitracin Zinc Oint 1 applic TOPICAL BID #1 each 10/24/22 11/14/22 Rx Furosemide [Lasix] 40 mg PO DAILY #30 tablet 10/24/22 11/14/22 Rx Insulin Detemir (Levemir) [Levemir] 15 unit SQ DAILY@0700 #5 each 10/24/22 11/14/22 Rx Ipratropium-Albuterol Nebulize 3 ml INHALATION RT-QID #120 each 10/24/22 11/14/22 Rx [Duoneb 0.5 mg-3 mg/3 ml Soln] Triamcinolone 0.1% Cream [Kenalog 1 applic TOPICAL BID #1 each 10/24/22 11/14/22 Rx 0.1% Cream] [place]-3/Dha/Epa/Fish Oil [Fish Oil 1 cap PO DAILY 11/14/22 11/14/22 History 1,000 mg Softgel] Spironolactone [Aldactone] 25 mg PO DAILY 11/14/22 11/14/22 History Ubidecarenone [Coenzyme Q10] 200 mg PO DAILY 11/14/22 11/14/22 History Ciprofloxacin HCl [Cipro] 500 mg PO Q12HR 10 Days #20 tab 11/20/22 Rx Doxycycline Hyclate 100 mg PO BID 10 Days #20 tab 11/20/22 Rx Ipratropium-Albuterol Nebulize 3 ml INHALATION RT-QID #120 each 11/20/22 Rx [Duoneb 0.5 mg-3 mg/3 ml Soln] Allergies Allergy/AdvReac Type Severity Reaction Status Date / Time No Known Allergies Allergy Verified 11/14/22 17:24 Physical Exam Vitals: Vital Signs Temp Pulse Pulse Resp BP Pulse Ox 11/15/22 09:58 97.8 F 131 H 20 106/89 97 11/15/22 08:20 100 18 11/15/22 08:12 99 18 97 11/15/22 06:00 98.5 F 99 20 106/69 95 11/15/22 02:00 83 18 112/69 97 11/14/22 22:58 104 H 20 118/88 94 L 11/14/22 21:00 99 20 101/60 93 L 11/14/22 19:10 108 H 22 11/14/22 18:19 108 H 24 113/88 95 11/14/22 17:07 124 H 11/14/22 17:00 122 H 11/14/22 16:56 100 22 105/87 94 L 11/14/22 13:56 98.3 F 62 24 144/66 92 L Intake and Output 11/14/22 11/15/22 11/15/22 22:59 06:59 14:59 Output Total 550 Balance -550 Output: Urine 550 GENERAL DESCRIPTION: Middle-aged male lying in bed, no distress. No tachypnea or accessory muscle of respiration use. HEENT: Shows Pallor , no scleral icterus. Oral mucous membrane is dry. NECK: Trachea central, no thyromegaly. LUNGS: Unlabored breathing. Coarse breast was bilaterally HEART: S1, S2, regular rate and rhythm. No loud murmur ABDOMEN: Soft, no tenderness , guarding or rigidity, no organomegaly EXTREMITIES: Bilateral lower extremity swelling and redness left lower extremity this is some superficial ulceration and some purulent drainage SKIN: No rash, no masses palpable. NEUROLOGICAL: The patient is awake, alert, oriented x3, mood and affect normal. Results CBC & Chem 7: 11/20/22 06:00 11/20/22 06:00 Labs: Abnormal Lab Results - Last 24 Hours (Table) 11/14/22 11/14/22 11/14/22 Range/Units 16:15 16:15 16:15 RDW 16.5 H (11.5-15.5) % D-Dimer 1.80 H (<0.60) mg/L FEU VBG pCO2 (37-51) mmHg VBG HCO3 (24-28) mmol/L Potassium 5.5 H (3.5-5.1) mmol/L Chloride 97 L (98-107) mmol/L Carbon Dioxide 35 H (22-30) mmol/L BUN 43 H (9-20) mg/dL Creatinine 1.64 H (0.66-1.25) mg/dL Glucose (74-99) mg/dL POC Glucose (mg/dL) (70-110) mg/dL Calcium (8.4-10.2) mg/dL ALT 54 H (4-49) U/L 11/14/22 11/15/22 11/15/22 Range/Units 22:43 05:32 07:23 RDW (11.5-15.5) % D-Dimer (<0.60) mg/L FEU VBG pCO2 77 H* (37-51) mmHg VBG HCO3 38 H (24-28) mmol/L Potassium (3.5-5.1) mmol/L Chloride 96 L (98-107) mmol/L Carbon Dioxide 34 H (22-30) mmol/L BUN 40 H (9-20) mg/dL Creatinine 1.56 H (0.66-1.25) mg/dL Glucose 107 H (74-99) mg/dL POC Glucose (mg/dL) 126 H (70-110) mg/dL Calcium 8.2 L (8.4-10.2) mg/dL ALT (4-49) U/L Assessment and Plan (1) Cellulitis Status: Acute Code(s): L03.90 - CELLULITIS, UNSPECIFIED SNOMED Code(s): 473315995 Plan: 1patient was in the hospital increasing shortness of breath also have evidence of increasing swelling redness to the left leg present superficial ulceration from ruptured blister concerning for cellulitis, likely from her gram-positive skin alesia for the patient being in neuro the hospital will need to cover for resistant gram-positive such as MRSA. 2local wound care to the left lower extremity wound with Aquacel silver dressin g to the open wound followed by Gonzalez wrap from just about the total below the knee 3vancomycin pharmacy to dose with a target trough of 15 while watching kidney function and Vanco trough closely. While waiting for the culture to finalize We will follow on clinical condition and cultures to further adjust medication if needed Thank you for this consultation we will follow the patient along with you Time with Patient: Greater than 30
[2022-11-16] MEDS: SODIUM CHLORIDE 0.9% 1,000 ML IV SCH (00:31)
[2022-11-16 06:09] LABS: Glucose,Whole Blood 111 mg/dL (70-110)
[2022-11-16] MEDS: DILTIAZEM CD 120 MG CAP.ER.24H PO SCH (06:16)
[2022-11-16] MEDS: INSULIN DETEMIR (LEVEMIR) 100 UNIT/ML SYR SQ SCH (06:16)
[2022-11-16] MEDS: HYDROcodone/APAP 5-325MG 1 EACH TAB PO PRN ×3 (06:18→23:34)
[2022-11-16] MEDS: INSULIN ASPART (NovoLOG) 100 UNIT/ML VIAL SQ SCH ×4 (06:38→21:58)
[2022-11-16] MEDS: APIXABAN 5 MG TAB PO SCH ×2 (08:31→20:33)
[2022-11-16] MEDS: DAPAGLIFLOZIN PROPANEDIOL 10 MG TABLET PO SCH (08:31)
[2022-11-16] MEDS: ATORVASTATIN 10 MG TAB PO SCH (08:31)
[2022-11-16] MEDS: traMADol 50 MG TAB PO PRN (08:31)
[2022-11-16] MEDS: busPIRone HCl 5 MG TAB PO SCH ×3 (08:31→20:33)
[2022-11-16] MEDS: FUROSEMIDE 10 MG/ML 4 ML VIAL IV SCH ×2 (08:32→20:34)
[2022-11-16] MEDS: METOPROLOL SUCCINATE (ER) 100 MG TAB.ER.24H PO SCH (08:32)
[2022-11-16] MEDS: PREGABALIN 100 MG CAP PO SCH ×3 (08:32→20:33)
[2022-11-16] MEDS: FAMOTIDINE 20 MG TAB PO SCH ×2 (08:32→20:33)
[2022-11-16] MEDS: IPRATROPIUM-ALBUTEROL 3 ML NEB INHALATION SCH ×4 (08:33→21:53)
[2022-11-16] MEDS: SYMBICORT 160-4.5 MCG INHALER INHALATION SCH ×2 (08:33→21:53)
[2022-11-16 11:48] LABS: Glucose,Whole Blood 103 mg/dL (70-110)
[2022-11-16 12:42] LABS: Calcium 8.4 mg/dL (8.4-10.2); Potassium 4.7 mmol/L (3.5-5.1)
--- NOTE | 2022-11-16 13:09 | P.GSCN ---
History of Present Illness Consult date: 11/16/22 History of present illness: CHIEF COMPLAINT: Bilateral lower extremity cellulitis HISTORY OF PRESENT ILLNESS: This is a 57-year-old male who is in the hospital worsening shortness of breath with evidence of possible CHF exacerbation and cellulitis of the lower extremities. He is followed by pulmonary and infectious disease services. Surgical service was consulted for possible I&D of an abscess on the left elbow. Patient reports that he did have an abscess in the left elbow but it has drained a significant amount of pus. He reports that it is feeling better. Patient reports that he had had the abscess there for about 3 weeks. Denies any history of diabetes. He denies any nausea vomiting. Denies any abdominal pain. He is on IV antibiotics. Patient seen and examined with Dr. Heaton PAST MEDICAL HISTORY: See below PAST SURGICAL HISTORY: See below MEDICATIONS: See below ALLERGIES: See below SOCIAL HISTORY: No illicit drug use. REVIEW OF SYSTEMS: CONSTITUTIONAL: Denies fever or chills. HEENT: Denies blurred vision, vision changes, or eye pain. Denies hemoptysis CARDIOVASCULAR: Denies chest pain or pressure. RESPIRATORY: No shortness of breath. GASTROINTESTINAL: See HPI for pertinent findings HEMATOLOGIC: Denies bleeding disorders. GENITOURINARY: Denies any blood in urine or increased urinary frequency. SKIN: Denies pruitis. Denies rash. PHYSICAL EXAM: VITAL SIGNS: Reviewed GENERAL: Well-developed in no acute distress. ABDOMEN: Soft. Nondistended. Nontender NEUROLOGIC: Alert and oriented. Cranial nerves II through XII grossly intact. Extremities: Left medial aspect of elbow small open area where fluid collection drained. No evidence of abscess at this time. No erythema. No area of induration. Nontender. No drainage LABORATORY DATA: WBC 7.0 hgb 13.5 platelets 274 D-dimer 1.8 sodium is 140 potassium 4.7 creatinine 1.56 IMAGING: ASSESSMENT: 1. Left elbow abscess that has drained. At this time no area of induration no evidence of abscess or cellulitis PLAN: -No surgical intervention planned -Continue antibiotics -Continue supportive care Physician Councilor note has been reviewed by physician. Signing provider agrees with the documented findings, assessment, and plan of care. 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 History of Any Multi-Drug Resistant Organisms: MRSA Year Discovered:: 04/05/22 MDRO Source:: Left Leg Past Surgical History: Hernia Repair, Joint Replacement, Orthopedic Surgery Additional Past Surgical History / Comment(s): RT ARMAND, rt foot SX, Past Anesthesia/Blood Transfusion Reactions: No Reported Reaction Past Psychological History: Depression Smoking Status: Former smoker Past Alcohol Use History: None Reported Past Drug Use History: None Reported - Past Family History Mother Family Medical History: No Reported History Medications and Allergies Home Medications Medication Instructions Recorded Confirmed Type Apixaban [Eliquis] 5 mg PO BID #60 tab 05/13/21 11/14/22 Rx Albuterol Sulfate [Proair Hfa] 2 puff INHALATION RT-Q4H PRN 04/05/22 11/14/22 History Losartan [Cozaar] 25 mg PO HS 07/09/22 11/14/22 History hydrOXYzine pamoate 50 mg PO HS PRN 07/09/22 11/14/22 History Atorvastatin [Lipitor] 10 mg PO DAILY 08/01/22 11/14/22 History Budesonide-Formot 160-4.5 Mcg 2 puff INHALATION RT-BID 08/01/22 11/14/22 History [Symbicort 160-4.5 Mcg Inhaler] INSULIN ASPART (NovoLOG) [NovoLOG See Protocol SQ ACHS 09/04/22 11/14/22 History (formulary)] traMADol HCL 50 mg PO Q6H PRN 09/04/22 11/14/22 History Dapagliflozin Propanediol [Farxiga] 10 mg PO DAILY 30 Days #30 tab 09/10/22 11/14/22 Rx Famotidine [Pepcid] 20 mg PO BID #60 tab 09/10/22 11/14/22 Rx Melatonin 5 mg PO HS tab 09/10/22 11/14/22 Rx Metoprolol Succinate (ER) [Toprol 100 mg PO DAILY 30 Days #30 tab 09/10/22 11/14/22 Rx XL] busPIRone HCl [Buspar] 5 mg PO TID 30 Days #90 tab 09/10/22 11/14/22 Rx dilTIAZem HCL [dilTIAZem HCL 24Hr 120 mg PO DAILY #0 09/10/22 11/14/22 Rx ER (Xr)] Pregabalin [Lyrica] 100 mg PO TID 10/16/22 11/14/22 History Acetaminophen Tab [Tylenol] 650 mg PO Q4HR PRN tab 10/24/22 11/14/22 Rx Bacitracin Zinc Oint 1 applic TOPICAL BID #1 each 10/24/22 11/14/22 Rx Furosemide [Lasix] 40 mg PO DAILY #30 tablet 10/24/22 11/14/22 Rx Insulin Detemir (Levemir) [Levemir] 15 unit SQ DAILY@0700 #5 each 10/24/22 11/14/22 Rx Ipratropium-Albuterol Nebulize 3 ml INHALATION RT-QID #120 each 10/24/22 11/14/22 Rx [Duoneb 0.5 mg-3 mg/3 ml Soln] Triamcinolone 0.1% Cream [Kenalog 1 applic TOPICAL BID #1 each 10/24/22 11/14/22 Rx 0.1% Cream] [place]-3/Dha/Epa/Fish Oil [Fish Oil 1 cap PO DAILY 11/14/22 11/14/22 History 1,000 mg Softgel] Spironolactone [Aldactone] 25 mg PO DAILY 11/14/22 11/14/22 History Ubidecarenone [Coenzyme Q10] 200 mg PO DAILY 11/14/22 11/14/22 History Allergies Allergy/AdvReac Type Severity Reaction Status Date / Time No Known Allergies Allergy Verified 11/14/22 17:24 Surgical - Exam Vital Signs Temp Pulse Resp BP Pulse Ox 98.3 F 62 24 144/66 92 L 11/14/22 13:56 11/14/22 13:56 11/14/22 13:56 11/14/22 13:56 11/14/22 13:56 Results - Labs 11/14/22 16:15 11/16/22 11:42 Abnormal Lab Results - Last 24 Hours (Table) 11/15/22 11/15/22 11/15/22 Range/Units 07:23 12:03 16:13 Chloride 96 L (98-107) mmol/L Carbon Dioxide 34 H (22-30) mmol/L BUN 40 H (9-20) mg/dL Creatinine 1.56 H (0.66-1.25) mg/dL Glucose 107 H (74-99) mg/dL POC Glucose (mg/dL) 133 H 132 H (70-110) mg/dL Calcium 8.2 L (8.4-10.2) mg/dL 11/15/22 11/16/22 Range/Units 20:08 06:07 Chloride (98-107) mmol/L Carbon Dioxide (22-30) mmol/L BUN (9-20) mg/dL Creatinine (0.66-1.25) mg/dL Glucose (74-99) mg/dL POC Glucose (mg/dL) 120 H 111 H (70-110) mg/dL Calcium (8.4-10.2) mg/dL Microbiology - Last 24 Hours (Table) 11/15/22 11:36 Gram Stain - Preliminary Leg - Left Wound Culture - Preliminary 11/15/22 11:36 Anaerobic Culture - Preliminary Leg - Left Diabetes panel 11/15/22 Range/Units 07:23 Sodium 138 (137-145) mmol/L Potassium 4.7 (3.5-5.1) mmol/L Chloride 96 L (98-107) mmol/L Carbon Dioxide 34 H (22-30) mmol/L BUN 40 H (9-20) mg/dL Creatinine 1.56 H (0.66-1.25) mg/dL Glucose 107 H (74-99) mg/dL Calcium 8.2 L (8.4-10.2) mg/dL Calcium panel 11/15/22 Range/Units 07:23 Calcium 8.2 L (8.4-10.2) mg/dL Pituitary panel 11/15/22 Range/Units 07:23 Sodium 138 (137-145) mmol/L Potassium 4.7 (3.5-5.1) mmol/L Chloride 96 L (98-107) mmol/L Carbon Dioxide 34 H (22-30) mmol/L BUN 40 H (9-20) mg/dL Creatinine 1.56 H (0.66-1.25) mg/dL Glucose 107 H (74-99) mg/dL Calcium 8.2 L (8.4-10.2) mg/dL Adrenal panel 11/15/22 Range/Units 07:23 Sodium 138 (137-145) mmol/L Potassium 4.7 (3.5-5.1) mmol/L Chloride 96 L (98-107) mmol/L Carbon Dioxide 34 H (22-30) mmol/L BUN 40 H (9-20) mg/dL Creatinine 1.56 H (0.66-1.25) mg/dL Glucose 107 H (74-99) mg/dL Calcium 8.2 L (8.4-10.2) mg/dL
--- NOTE | 2022-11-16 14:29 | P.PN ---
Subjective Progress Note Date: 11/16/22 I am seeing this patient in new consultation today 10/17/2022 in the emergency room for a likely mild CHF exacerbation and cellulitis. Patient is a 57-year-old white male with past medical history of atrial fibrillation, congestive heart failure, severe COPD with an FEV1 22% of predicted, oxygen dependent on 2 L nasal cannula at home, obstructive sleep apnea with home VPAP machine, hyperlipidemia, hypertension, obesity, chronic kidney disease stage III, lower extremity edema and cellulitis. Patient does follow with Dr. Gregory for management of his COPD and obstructive sleep apnea, and was sent o lazarus from the office yesterday for progressive shortness of breath, worsening lower extremity swelling, and erythema. Patient's symptoms have progressively worsened since his recent hospital discharge last month. He reports shortness of breath on exertion and when lying flat. He also reports an associated 30 pound weight gain over last couple days. Bilateral lower extremities are severely edematous and weeping. There are multiple open sores and his legs are more erythematous than baseline according to the patient. His legs are very tender to palpation. He also has a left upper extremity area of erythema and induration concerning for cellulitis. Patient is currently sitting up in bed, on 4 L nasal cannula, in no acute distress. Chest x-ray on arrival showed cardiomegaly and mild pulmonary vascular congestion. NT proBNP was elevated at 3640. He was given one dose of Lasix 40 mg in the emergency room, and he has reportedly used the urinal multiple times. CBC on arrival is unremarkable. BMP showed a sodium 138, potassium 5.5, chloride 97, serum CO2 chronically elevated at 35, BUN 43, creatinine 1.64, glucose 88. Normal saline is infusing at 20 ML's per hour. Lactic acid level was 1.4. Troponin negative 1. ECG shows atrial fibrillation with controlled ventricular rate and no obvious ischemic changes. D-dimer was elevated, and he is unable to undergo chest CTA due to r enal function. Vital signs are stable at this time. Patient will be transferred to the cardiac stepdown unit once bed available. The patient is seen today in 11/16/2022 in follow-up on the selective care unit. He is currently sitting up at the bedside. Awake and alert in no acute distress. Denies any worsening shortness of breath, cough or congestion. Pulmonary perfusion test Velo an intermediate probability for pulmonary embolus. He is maintaining O2 saturations in the 90s on 2 L/m per nasal cannula. No worsening shortness of breath, cough or congestion. No hemoptysis. He has been seen and evaluated by infectious disease. Left lower extremity wound cultures are pending. Blood cultures are pending. Sodium 140. Potassium 4.7. Bicarb 36. BUN 30. Creatinine 1.56. Glucose 92. He is on antibiotics in the form of vancomycin. Remains on Symbicort, DuoNeb inhalations. Anticoagulated with Eliquis. Remains on IV diuretics. Currently in a negative balance. Objective - Vital Signs Vital signs: Vital Signs Temp 98.1 F 11/16/22 08:00 Pulse 118 H 11/16/22 12:00 Resp 18 11/16/22 12:00 BP 102/68 11/16/22 12:00 Pulse Ox 91 L 11/16/22 12:00 FiO2 Intake & Output 11/15/22 11/16/22 11/16/22 18:59 06:59 18:59 Intake Total 611 203 3523 Output Total 1350 Balance -9822 505 1787 Weight 164.2 kg Intake: Oral 919 335 9711 Output: Urine 1350 - Exam GENERAL EXAM: Alert, morbidly obese 57-year-old male, sitting up in the bedside, on 2 L nasal cannula, comfortable in no apparent distress. HEAD: Normocephalic and atraumatic EYES: Normal reaction of pupils, equal size. NOSE: Clear with pink turbinates. THROAT: No erythema or exudates. NECK: No masses, no JVD. CHEST: No chest wall deformity. LUNGS: Equal air entry with no crackles, wheeze, rhonchi or dullness. Diminished. No conversational dyspnea or accessory muscle use. CVS: S1 and S2 normal with no audible murmur, irregular rhythm. No extra heart sounds ABDOMEN: Obese abdomen. No hepatosplenomegaly, active bowel sounds, no guarding or rigidity. SPINE: No scoliosis or deformity SKIN: Bilateral lower extremity erythema and weeping ulcerations. There is also an area of induration and erythema on the left upper extremity. CENTRAL NERVOUS SYSTEM: No focal deficits, tone is normal in all 4 extremities. EXTREMITIES: There is severe bilateral lower extremity edema. No clubbing, or cyanosis. Peripheral pulses are intact. - Labs CBC & Chem 7: 11/14/22 16:15 11/16/22 11:42 Labs: Abnormal Lab Results - Last 24 Hours (Table) 11/15/22 11/15/22 11/16/22 Range/Units 16:13 20:08 06:07 Chloride (98-107) mmol/L Carbon Dioxide (22-30) mmol/L BUN (9-20) mg/dL Creatinine (0.66-1.25) mg/dL POC Glucose (mg/dL) 132 H 120 H 111 H (70-110) mg/dL 11/16/22 Range/Units 11:42 Chloride 96 L (98-107) mmol/L Carbon Dioxide 36 H (22-30) mmol/L BUN 30 H (9-20) mg/dL Creatinine 1.56 H (0.66-1.25) mg/dL POC Glucose (mg/dL) (70-110) mg/dL Microbiology - Last 24 Hours (Table) 11/14/22 16:00 Blood Culture - Preliminary Blood 11/14/22 16:15 Blood Culture - Preliminary Blood 11/15/22 11:36 Gram Stain - Preliminary Leg - Left Wound Culture - Preliminary 11/15/22 11:36 Anaerobic Culture - Preliminary Leg - Left Assessment and Plan Assessment: Acute on chronic hypoxemic and hypercapnic respiratory failure, likely related to a mild exacerbation of patient's diastolic heart failure. Currently on 2 L nasal cannula. Suspect bilateral lower extremity cellulitis and the wound cultures pending Left upper arm carbuncle Patient's COPD seems stable. Patient does have very severe COPD with an FEV1 22% of predicted at baseline Atrial fibrillation with rapid ventricular rate, heart rate is better controlled ranging from 100 to 110 bpm Obstructive sleep apnea managed with home CPAP machine Diastolic heart failure. Preserved LV function and ejection fraction of 50-55% Hypertension Hyperlipidemia Chronic kidney disease stage III Chronic lower extremity edema with previous history of infection including MRSA, Enterococcus faecalis, Pseudomonas, Acinetobacter on the left leg wound Ex-smoker, with [id number] history Plan: The patient was seen and evaluated Medications and labs reviewed Continue the current treatment plan Anticoagulated with Eliquis Infectious diseases on the case Currently on vancomycin Wound cultures pending We will continue to follow I have personally seen and examined the patient, performed the documentation and the assessment and plan as written. Number of minutes spent on the visit: 10.
--- NOTE | 2022-11-16 15:26 | P.PN ---
Subjective Progress Note Date: 11/16/22 Principal diagnosis: Left leg wound and cellulitis Patient is a 57-year-old male with a past medical history significant for COPD atrial fibrillation hypertension hyperlipidemia has been sent to the ER from his PCP office for evaluation of increasing shortness of breath leg swelling redness especially involving the left leg. On today's evaluation that is 11/16/2022, the patient denies having any fever or any chills, the patient is breathing slightly comfortably and not exerting on a nasal cannula oxygen denies any chest pain or worsening cough no abdominal pain or any worsening pain to the left lower extremity Objective - Vital Signs Vital signs: Vital Signs Temp 98.1 F 11/16/22 08:00 Pulse 118 H 11/16/22 12:00 Resp 18 11/16/22 12:00 BP 102/68 11/16/22 12:00 Pulse Ox 91 L 11/16/22 12:00 FiO2 Intake & Output 11/15/22 11/16/22 11/16/22 18:59 06:59 18:59 Intake Total 236 540 720 Output Total 1350 Balance -1114 540 720 Weight 164.2 kg Intake: Oral 236 540 720 Output: Urine 1350 - Exam GENERAL DESCRIPTION: Middle-age male up in bed in no distress RESPIRATORY SYSTEM: Unlabored breathing , decreased breath sounds at bases HEART: S1 S2 regular rate and rhythm , ABDOMEN: Soft , no tenderness EXTREMITIES: Legs are currently No drainage on the dressing - Labs CBC & Chem 7: 11/14/22 16:15 11/16/22 11:42 Labs: Abnormal Lab Results - Last 24 Hours (Table) 11/15/22 11/15/22 11/16/22 Range/Units 16:13 20:08 06:07 Chloride (98-107) mmol/L Carbon Dioxide (22-30) mmol/L BUN (9-20) mg/dL Creatinine (0.66-1.25) mg/dL POC Glucose (mg/dL) 132 H 120 H 111 H (70-110) mg/dL 11/16/22 Range/Units 11:42 Chloride 96 L (98-107) mmol/L Carbon Dioxide 36 H (22-30) mmol/L BUN 30 H (9-20) mg/dL Creatinine 1.56 H (0.66-1.25) mg/dL POC Glucose (mg/dL) (70-110) mg/dL Microbiology - Last 24 Hours (Table) 11/14/22 16:00 Blood Culture - Preliminary Blood 11/14/22 16:15 Blood Culture - Preliminary Blood 11/15/22 11:36 Gram Stain - Preliminary Leg - Left Wound Culture - Preliminary 11/15/22 11:36 Anaerobic Culture - Preliminary Leg - Left Assessment and Plan (1) Left leg cellulitis Current Visit: Yes Status: Acute Code(s): L03.116 - CELLULITIS OF LEFT LOWER LIMB SNOMED Code(s): 840554677 Plan: 1patient was in the hospital increasing shortness of breath also have evidence of increasing swelling redness to the left leg present superficial ulceration from ruptured blister concerning for cellulitis, likely from her gram-positive skin alesia for the patient being in neuro the hospital will need to cover for resistant gram-positive such as MRSA. 2local wound care to the left lower extremity wound with Aquacel silver dressing to the open wound followed by Gonzalez wrap from just about the total below the knee 3patient to continue with vancomycin pharmacy to dose While waiting for the culture to finalize Time with Patient: Less than 30
--- NOTE | 2022-11-16 16:29 | P.PN ---
Subjective Progress Note Date: 11/16/22 This is a 57 year old male with medical history of atrial fibrillation anticoagulated with eliquis, asthma, COPD, heart failure, hypertension, hyperlipidemia, sleep apnea with CPAP use, former smoker. Patient presented to the hospital with complaints of shortness of breath and leg swelling with redness he was sent in from PCPs office. Patient was recently admitted to the hospital from October 16 to October 24 for an acute COPD exacerbation and was discharged home. Patient does have multiple admissions for the same. Initial chest x-ray reveals cardiomegaly and mild pulmonary vascular congestion correl ate with BNP for congestive heart failure. EKG showing atrial fibrillation with a heart rate of 94. This ST deviation and moderate T-wave abnormality consider anterior ischemia. Troponin level is negative, proBNP is 3640. Patient is a elevated potassium of 5.5, mild acute kidney injury BUN 43, creatinine 1.64. Id. is elevated at 1.80. Patient has no elevated white count. Patient is afebrile, currently on oxygen at 2-3 L of nasal cannula. Bilateral lower extremities left greater than right with significant redness and there are multiple ulcerations which are weeping and appear infected which will be cultured. Patient denies fever/chills at home. Denies chest pain, currently not complaining for shortness of breath. Complaining of significant neuropathic pain worse in the right toes. There is also a wound to the left elbow outer aspect which has significant area of induration and surrounding redness, patient states had purulent drainage. Surgery will be consulted for this. Patient will be admitted to the hospital for left leg cellulitis, shortness of breath in the COPD/CHF. Patient has been started on IV vancomycin, pulmonary and infectious disease service is consulted. Patient has been started on IV Lasix. 11/16/2022 Patient is evaluated today on the medical floor. he continues on IV lasix 40 mg Q12 with significant redness and swelling to the lower extremities. Wounds on the left leg have been cultured and currently pending. Infectious disease following and patient is maintained on IV vancomycin at this time. Continues on toprol and oral cardizem with heart rate in the 110s to 120s and cardiology has been consulted for the rapid rate, patient remains in atrial fibrillation at this time. Weaned to home oxygen at 2L nasal cannula. Had brown drainage from the wound to the left upper extremity and patient will be monitored closely on IV antibiotics with general surgery not planning on an I&D at this time. creatinine stable at 1.56 today. Review of Systems Constitutional: Denied any fatigue denied any fever. Cardio vascular: denied any chest pain, palpitations Gastrointestinal: denied any nausea, vomiting, diarrhea Pulmonary: Denied any shortness of breath cough Neurologic denied any new focal deficits All inpatient medications were reviewed and appropriate changes in these medications as dictated in the interval history and assessment and plan. PHYSICAL EXAMINATION: GENERAL: The patient is alert and oriented x3, not in any acute distress. Well developed, well nourished. Obese. on 3L nasal cannula. HEENT: Pupils are round and equally reacting to light. EOMI. No scleral icterus. No conjunctival pallor. Normocephalic, atraumatic. No pharyngeal erythema. No thyromegaly. CARDIOVASCULAR: S1 and S2 present. No murmurs, rubs, or gallops. PULMONARY: Chest is clear to auscultation, no wheezing or crackles. Diminished. ABDOMEN: Soft, nontender, nondistended, normoactive bowel sounds. No palpable organomegaly. Obese. There is some redness to the periumbilical region. MUSCULOSKELETAL: No joint swelling or deformity. EXTREMITIES: +1 pitting lower extremity edema. NEUROLOGICAL: Gross neurological examination did not reveal any focal deficits. SKIN: No rashes. Bilateral lower extremity cellulitis right left greater than right with multiple ulcerations appear infected. Wound to the left elbow with induration and surrounding redness. Assessment and Plan Shortness of breath Mild acute on chronic heart failure with preserved EF on most recent echocardiogram Bilateral lower extremity cellulitis with multiple areas of ulceration from ve nous stasis, with sepsis present on admission left greater than right. Cellulitis and possible abscess to the left upper extremity near elbow with purulent drainage, pt has history of MRSA infection. History COPD/asthma Chronic hypoxic respiratory failure on 2L nasal cannula Acute on chronic renal failure Elevated DDimer VQ scan showing intermediate probability of PE Diabetes Mellitus type 2 with hemoglobin A1C of 6.8. Chronic atrial fibrillation with rapid ventricular rate anticoagulated with eliquis Hypertension Hyperlipidemia Obstructive sleep apnea with CPAP use Depression Former smoker GI prophylaxis DVT prophylaxis as above Full Code Plan Continue IV lasix monitor intake and output IV vancomycin and infectious disease consultation Wound culture General surgery consultation evaluation of possible abscess left upper extremity Pulmonary consultation in place Cardiology has been consulted The impression and plan of care has been dictated by Meri Galvan Nurse Practitioner as directed. Dr. Denisse MD I have performed a history and physical examination and medical decision making of this patient, discussed the same with the dictator, and agree with the dictators assessment and plan as written, documented as a scribe. Based on total visit time, I have performed more than 50% of this visit. Objective - Vital Signs Vital signs: Vital Signs Temp 98.1 F 11/16/22 08:00 Pulse 116 H 11/16/22 15:51 Resp 18 11/16/22 14:00 BP 102/68 11/16/22 12:00 Pulse Ox 91 L 11/16/22 12:00 FiO2 Intake & Output 11/15/22 11/16/22 11/16/22 18:59 06:59 18:59 Intake Total 090 090 5210 Output Total 1350 Balance -6668 445 1380 Weight 164.2 kg Intake: Oral 315 418 8283 Output: Urine 1350 - Labs CBC & Chem 7: 11/14/22 16:15 11/16/22 11:42 Labs: Abnormal Lab Results - Last 24 Hours (Table) 11/15/22 11/16/22 11/16/22 Range/Units 20:08 06:07 11:42 Chloride (98-107) mmol/L Carbon Dioxide (22-30) mmol/L BUN (9-20) mg/dL Creatinine (0.66-1.25) mg/dL POC Glucose (mg/dL) 120 H 111 H (70-110) mg/dL Hemoglobin A1c 6.8 H (0.0-6.0) % 11/16/22 Range/Units 11:42 Chloride 96 L (98-107) mmol/L Carbon Dioxide 36 H (22-30) mmol/L BUN 30 H (9-20) mg/dL Creatinine 1.56 H (0.66-1.25) mg/dL POC Glucose (mg/dL) (70-110) mg/dL Hemoglobin A1c (0.0-6.0) % Microbiology - Last 24 Hours (Table) 11/14/22 16:00 Blood Culture - Preliminary Blood 11/14/22 16:15 Blood Culture - Preliminary Blood 11/15/22 11:36 Gram Stain - Preliminary Leg - Left Wound Culture - Preliminary 05/18/23 11:36 Anaerobic Culture - Preliminary Leg - Left Assessment and Plan Time with Patient: Less than 30
[2022-11-16 16:33] LABS: Glucose,Whole Blood 158 mg/dL (70-110)
[2022-11-16] MEDS: VANCOMYCIN 2,500 MG in SODIUM CHLORIDE 0.9% 500 ML 500 ML IVPB SCH (17:40)
[2022-11-16 19:54] LABS: Glucose,Whole Blood 186 mg/dL (70-110)
[2022-11-16] MEDS: MELATONIN 5 MG TABLET PO SCH (20:33)
[2022-11-17 06:05] LABS: Glucose,Whole Blood 114 mg/dL (70-110)
[2022-11-17] MEDS: INSULIN ASPART (NovoLOG) 100 UNIT/ML VIAL SQ SCH ×4 (06:18→21:46)
[2022-11-17] MEDS: INSULIN DETEMIR (LEVEMIR) 100 UNIT/ML SYR SQ SCH (06:29)
[2022-11-17] MEDS: SYMBICORT 160-4.5 MCG INHALER INHALATION SCH ×2 (08:03→20:51)
[2022-11-17] MEDS: IPRATROPIUM-ALBUTEROL 3 ML NEB INHALATION SCH ×4 (08:03→20:51)
[2022-11-17 08:09] LABS: Anisocytosis Slight; Basophils % (A) 1 %; Eosinophils # (A) 0.2 k/uL (0-0.7); Eosinophils % (A) 4 %; HCT 43.4 % (39.0-53.0); HGB 14.1 gm/dL (13.0-17.5); Hypochromasia Slight; Lymphocytes % (A) 17 %; MCH 28.6 pg (25.0-35.0); MCHC 32.5 g/dL (31.0-37.0); MCV 87.9 fL (80.0-100.0); Mean Platelet Volume 7.8; Monocytes # (A) 0.4 k/uL (0-1.0); Monocytes % (A) 8 %; Neutrophils % (A) 67 %; Platelet Count 294 k/uL (150-450); Poikilocytosis Slight; RBC 4.94 m/uL (4.30-5.90); RDW 16.2 % (11.5-15.5); WBC 5.9 k/uL (3.8-10.6)
[2022-11-17] MEDS ORDERED: METOPROLOL SUCCINATE (ER) 50 MG TAB.ER.24H PO STA (08:23)
[2022-11-17 08:31] LABS: Calcium 8.7 mg/dL (8.4-10.2); Magnesium 2.3 mg/dL (1.6-2.3); Potassium 4.3 mmol/L (3.5-5.1)
[2022-11-17] MEDS: FUROSEMIDE 10 MG/ML 4 ML VIAL IV SCH ×2 (09:26→21:49)
[2022-11-17] MEDS: ATORVASTATIN 10 MG TAB PO SCH (09:26)
[2022-11-17] MEDS: DILTIAZEM CD 120 MG CAP.ER.24H PO SCH (09:26)
[2022-11-17] MEDS: APIXABAN 5 MG TAB PO SCH ×2 (09:26→21:48)
[2022-11-17] MEDS: PREGABALIN 100 MG CAP PO SCH ×3 (09:26→21:48)
[2022-11-17] MEDS: DAPAGLIFLOZIN PROPANEDIOL 10 MG TABLET PO SCH (09:27)
[2022-11-17] MEDS: busPIRone HCl 5 MG TAB PO SCH ×3 (09:27→21:48)
[2022-11-17] MEDS: FAMOTIDINE 20 MG TAB PO SCH ×2 (09:27→21:48)
[2022-11-17] MEDS: METOPROLOL SUCCINATE (ER) 50 MG TAB.ER.24H PO SCH (09:27)
--- NOTE | 2022-11-17 10:06 | P.PN ---
Subjective Progress Note Date: 11/17/22 This is a 57 year old male with medical history of atrial fibrillation anticoagulated with eliquis, asthma, COPD, heart failure, hypertension, hyperlipidemia, sleep apnea with CPAP use, former smoker. Patient presented to the hospital with complaints of shortness of breath and leg swelling with redness he was sent in from PCPs office. Patient was recently admitted to the hospital from October 16 to October 24 for an acute COPD exacerbation and was discharged home. Patient does have multiple admissions for the same. Initial chest x-ray reveals cardiomegaly and mild pulmonary vascular congestion correl ate with BNP for congestive heart failure. EKG showing atrial fibrillation with a heart rate of 94. This ST deviation and moderate T-wave abnormality consider anterior ischemia. Troponin level is negative, proBNP is 3640. Patient is a elevated potassium of 5.5, mild acute kidney injury BUN 43, creatinine 1.64. Id. is elevated at 1.80. Patient has no elevated white count. Patient is afebrile, currently on oxygen at 2-3 L of nasal cannula. Bilateral lower extremities left greater than right with significant redness and there are multiple ulcerations which are weeping and appear infected which will be cultured. Patient denies fever/chills at home. Denies chest pain, currently not complaining for shortness of breath. Complaining of significant neuropathic pain worse in the right toes. There is also a wound to the left elbow outer aspect which has significant area of induration and surrounding redness, patient states had purulent drainage. Surgery will be consulted for this. Patient will be admitted to the hospital for left leg cellulitis, shortness of breath in the COPD/CHF. Patient has been started on IV vancomycin, pulmonary and infectious disease service is consulted. Patient has been started on IV Lasix. 11/16/2022 Patient is evaluated today on the medical floor. he continues on IV lasix 40 mg Q12 with significant redness and swelling to the lower extremities. Wounds on the left leg have been cultured and currently pending. Infectious disease following and patient is maintained on IV vancomycin at this time. Continues on toprol and oral cardizem with heart rate in the 110s to 120s and cardiology has been consulted for the rapid rate, patient remains in atrial fibrillation at this time. Weaned to home oxygen at 2L nasal cannula. Had brown drainage from the wound to the left upper extremity and patient will be monitored closely on IV antibiotics with general surgery not planning on an I&D at this time. creatinine stable at 1.56 today. 11/17/2022 Patient remains on the medical floor. There is concern patient was obtunded this morning per nurse patient had taken his oxygen off and patient had taken himself off his CPAP. ABGs will be ordered. Brain CT will be ordered. Patient remains on IV vancomycin and wound cultures are currently pending at this time. Hemoglobin A1C is 6.8. Creatinine improved to 1.49. Remains on IV lasix. Review of Systems Constitutional: Denied any fatigue denied any fever. Cardio vascular: denied any chest pain, palpitations Gastrointestinal: denied any nausea, vomiting, diarrhea Pulmonary: Denied any shortness of breath cough Neurologic denied any new focal deficits has weakness. All inpatient medications were reviewed and appropriate changes in these medications as dictated in the interval history and assessment and plan. PHYSICAL EXAMINATION: GENERAL: The patient is alert and oriented x2-3, with moments of confusion.Not in any acute distress. Well developed, well nourished. Obese. on 3L nasal cannula/CPAP HEENT: Pupils are round and equally reacting to light. EOMI. No scleral icterus. No conjunctival pallor. Normocephalic, atraumatic. No pharyngeal erythema. No thyromegaly. CARDIOVASCULAR: S1 and S2 present. No murmurs, rubs, or gallops. Irregularly irregular. PULMONARY: Chest is clear to auscultation, no wheezing or crackles. Diminished. ABDOMEN: Soft, nontender, nondistended, normoactive bowel sounds. No palpable organomegaly. Obese. MUSCULOSKELETAL: No joint swelling or deformity. EXTREMITIES: +1 pitting lower extremity edema. NEUROLOGICAL: Gross neurological examination did not reveal any focal deficits. SKIN: No rashes. Bilateral lower extremity cellulitis right left greater than right with multiple ulcerations appear infected significant redness. Wound to the left elbow with induration and surrounding redness. Assessment and Plan Shortness of breath Mild acute on chronic heart failure with preserved EF on most recent echocardiogram Bilateral lower extremity cellulitis with multiple areas of ulceration from venous stasis, with sepsis present on admission left greater than right. Cellulitis and possible abscess to the left upper extremity near elbow with purulent drainage, pt has history of MRSA infection. Chronic atrial fibrillation with rapid ventricular rate anticoagulated with eliquis History COPD/asthma Acute on chronic renal failure Elevated DDimer VQ scan showing intermediate probability of PE Acute on chronic hypoxic respiratory failure on 2L nasal cannula /CPAP Altered mental status likely from acute metabolic encephalopathy patient is also hypoxic taking off his oxygen Diabetes Mellitus type 2 with hemoglobin A1C of 6.8. Hypertension Hyperlipidemia Obstructive sleep apnea with CPAP use Depression Former smoker GI prophylaxis DVT prophylaxis as above Full Code Plan Continue IV lasix monitor intake and output IV vancomycin and infectious disease consultation Wound cultures are pending at this time General surgery consultation evaluation of possible abscess left upper extremity continues to be indurated Pulmonary consultation in place Cardiology consultation metoprolol is increased Brain CT, ABGs and urinalysis are ordered The impression and plan of care has been dictated by Meri Galvan, Nurse Practitioner as directed. Dr. Ja MD I have performed a history and physical examination and medical decision making of this patient, discussed the same with the dictator, and agree with the dictators assessment and plan as written, documented as a scribe. Based on total visit time, I have performed more than 50% of this visit. Objective - Vital Signs Vital signs: Vital Signs Temp 98.1 F 11/17/22 04:00 Pulse 108 H 11/17/22 08:05 Resp 18 11/17/22 04:00 BP 124/51 11/17/22 04:00 Pulse Ox 92 L 11/17/22 08:05 FiO2 Intake & Output 11/16/22 11/17/22 11/17/22 18:59 06:59 18:59 Intake Total 1440 540 250 Balance 1440 540 250 Weight 162.9 kg Intake: Oral 1440 540 250 Other: # Voids 2 # Bowel Movements 1 - Labs CBC & Chem 7: 11/17/22 07:39 11/17/22 07:39 Labs: Abnormal Lab Results - Last 24 Hours (Table) 11/16/22 11/16/22 11/16/22 Range/Units 11:42 11:42 16:32 RDW (11.5-15.5) % Chloride 96 L (98-107) mmol/L Carbon Dioxide 36 H (22-30) mmol/L BUN 30 H (9-20) mg/dL Creatinine 1.56 H (0.66-1.25) mg/dL Glucose (74-99) mg/dL POC Glucose (mg/dL) 158 H (70-110) mg/dL Hemoglobin A1c 6.8 H (0.0-6.0) % 11/16/22 11/17/22 11/17/22 Range/Units 19:50 06:03 07:39 RDW (11.5-15.5) % Chloride 96 L (98-107) mmol/L Carbon Dioxide 35 H (22-30) mmol/L BUN 25 H (9-20) mg/dL Creatinine 1.49 H (0.66-1.25) mg/dL Glucose 124 H (74-99) mg/dL POC Glucose (mg/dL) 186 H 114 H (70-110) mg/dL Hemoglobin A1c (0.0-6.0) % 11/17/22 Range/Units 07:39 RDW 16.2 H (11.5-15.5) % Chloride (98-107) mmol/L Carbon Dioxide (22-30) mmol/L BUN (9-20) mg/dL Creatinine (0.66-1.25) mg/dL Glucose (74-99) mg/dL POC Glucose (mg/dL) (70-110) mg/dL Hemoglobin A1c (0.0-6.0) % Microbiology - Last 24 Hours (Table) 11/14/22 16:00 Blood Culture - Preliminary Blood 11/14/22 16:15 Blood Culture - Preliminary Blood Assessment and Plan Time with Patient: Less than 30
[2022-11-17 10:32] LABS: ABG Base Excess 11.2 mmol/L; ABG HCO3 35 mmol/L (21-25); ABG PCO2 53 mmHg (35-45); ABG PH 7.44 (7.35-7.45); ABG PO2 60 mmHg (83-108); ABG TCO2 37 mmol/L (19-24); Allen Test Performed? Yes
--- NOTE | 2022-11-17 10:39 | P.PN ---
Subjective Progress Note Date: 11/17/22 Principal diagnosis: Left elbow cellulitis Patient doing well today. Denies any significant pain in that left elbow region. He says it slightly improved. No drainage. White blood cell count 5.9. Objective - Vital Signs Vital signs: Vital Signs Temp 97.5 F L 11/17/22 08:10 Pulse 112 H 11/17/22 08:15 Resp 18 11/17/22 08:10 BP 134/79 11/17/22 08:10 Pulse Ox 90 L 11/17/22 08:10 FiO2 Intake & Output 11/16/22 11/17/22 11/17/22 18:59 06:59 18:59 Intake Total 1440 540 250 Balance 1440 540 250 Weight 162.9 kg Intake: Oral 1440 540 250 Other: # Voids 2 # Bowel Movements 1 0 - Exam Left upper extremity with 2 cm area of induration with slight erythema, no fluctuance, minimal tenderness - Labs CBC & Chem 7: 11/17/22 07:39 11/17/22 07:39 Labs: Abnormal Lab Results - Last 24 Hours (Table) 11/16/22 11/16/22 11/16/22 Range/Units 11:42 11:42 16:32 RDW (11.5-15.5) % ABG pCO2 (35-45) mmHg ABG pO2 (83-108) mmHg ABG HCO3 (21-25) mmol/L ABG Total CO2 (19-24) mmol/L ABG O2 Saturation (94-97) % Chloride 96 L (98-107) mmol/L Carbon Dioxide 36 H (22-30) mmol/L BUN 30 H (9-20) mg/dL Creatinine 1.56 H (0.66-1.25) mg/dL Glucose (74-99) mg/dL POC Glucose (mg/dL) 158 H (70-110) mg/dL Hemoglobin A1c 6.8 H (0.0-6.0) % 11/16/22 11/17/22 11/17/22 Range/Units 19:50 06:03 07:39 RDW (11.5-15.5) % ABG pCO2 (35-45) mmHg ABG pO2 (83-108) mmHg ABG HCO3 (21-25) mmol/L ABG Total CO2 (19-24) mmol/L ABG O2 Saturation (94-97) % Chloride 96 L (98-107) mmol/L Carbon Dioxide 35 H (22-30) mmol/L BUN 25 H (9-20) mg/dL Creatinine 1.49 H (0.66-1.25) mg/dL Glucose 124 H (74-99) mg/dL POC Glucose (mg/dL) 186 H 114 H (70-110) mg/dL Hemoglobin A1c (0.0-6.0) % 11/17/22 11/17/22 Range/Units 07:39 10:29 RDW 16.2 H (11.5-15.5) % ABG pCO2 53 H (35-45) mmHg ABG pO2 60 L (83-108) mmHg ABG HCO3 35 H (21-25) mmol/L ABG Total CO2 37 H (19-24) mmol/L ABG O2 Saturation 90.0 L (94-97) % Chloride (98-107) mmol/L Carbon Dioxide (22-30) mmol/L BUN (9-20) mg/dL Creatinine (0.66-1.25) mg/dL Glucose (74-99) mg/dL POC Glucose (mg/dL) (70-110) mg/dL Hemoglobin A1c (0.0-6.0) % Microbiology - Last 24 Hours (Table) 11/14/22 16:00 Blood Culture - Preliminary Blood 11/14/22 16:15 Blood Culture - Preliminary Blood Assessment and Plan (1) Left arm cellulitis Narrative/Plan: 57-year-old male with localized area of cellulitis left arm near elbow. Continue antibiotic. No need for incision and drainage. Dr. Heaton we'll reassess on Saturday. Current Visit: Yes Status: Acute Code(s): L03.114 - CELLULITIS OF LEFT UPPER LIMB SNOMED Code(s): 567686065
--- NOTE | 2022-11-17 11:56 | CT ---
EXAMINATION TYPE: CT brain wo con DATE OF EXAM: 11/17/2022 HISTORY: Altered mental status. CT DLP: 1276.4 mGycm. Automated Exposure Control for Dose Reduction was Utilized. TECHNIQUE: CT scan of the head is performed without contrast. COMPARISON: CT brain April 18, 2022. FINDINGS: There is no acute intracranial hemorrhage or midline shift identified. There is mild diff use ventricular and sulcal prominence redemonstrated. 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 Opacified right mastoid air cells redemonstrated. The globes are intact an d the visualized sinuses are clear. IMPRESSION: No acute intracranial hemorrhage or midline shift. 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 Possible right-sided ma stoiditis, correlate clinically with point tenderness. No significant change from prior brain CT.
[2022-11-17 12:03] LABS: Glucose,Whole Blood 127 mg/dL (70-110)
[2022-11-17] MEDS: CEFEPIME 2 GM in SODIUM CHLORIDE 0.9% 100 ML IVPB SCH ×2 (12:10→21:48)
--- NOTE | 2022-11-17 12:10 | P.CRDCN ---
History of Present Illness Consult date: 11/17/22 Consult reason: atrial fibrillation (w rvr) History of present illness: History of Present Illness: The patient is a 57-year-old male patient of Dr. Dickerson with a history of chronic obstructive lung disease, prior history of smoking, history of atrial fibrillation on eliquis. patient presented to the hospital due to shortness of breath. He was at Dr. Gregory's office and was sent directly to the hospital. He has complaints of weight gain of 30 pounds, orthopnea and dyspnea on exertion. Patient was seen in the emergency center had started on IV Lasix 40 mg every 12 hours. Patient states he has been urinating well since [facility] on this. He is currently on CPAP. He has pulmonary medicine, infectious disease on consult as well as general surgery. We have been consulted regarding atrial fibrillation with RVR. His heart rate is running in the 136 to 140s. He has been resumed on eliquis. EKG A. fib with controlled ventricular rate of 94 on admission, telemetry atrial fibrillation 140s WBC 5.9, hemoglobin 14.1, platelet count 294. Sodium 141, potassium 4.3, chloride 96, CO2 35, BUN 25 creatinine 1.49. Troponin negative 1. ProBNP 3640. Lactic acid 1.4. Hemoglobin A1c 6.8. Chest x-ray reveals cardiomegaly with mild pulmonary vascular congestion. CAT scan of the brain no acute findings VQ scan intermediate probability for pulmonary embolism. Home cardiac medications: Eliquis 5 mg twice daily, atorvastatin 10 mg daily, Cardizem XR 120 mg daily, Lasix 40 mg daily, losartan 25 mg at bedtime, Toprol- XL 100 mg daily, Aldactone 25 mg daily, Farxiga 10 mg daily. Review of Systems: Respiratory: Chronic dyspnea on exertion severe COPD with cough and wheezing, weight gain, orthopnea GI: No nausea or vomiting . No history of peptic ulcer disease. No recent GI bleed. : No hematuria or dysuria. Nervous System: No stroke or seizure. Physical Examination: 57-year-old male, alert and oriented morbidly obese,Blood pressure 134/79 Head: Normocephalic. Eyes: Sclerae nonicteric. Neck: Good carotid upstroke, no bruit, no jugular venous distention. Lungs: Decreased air exchange bilaterally Heart: Irregular rate and rhythm, S1-S2, no S3, no rub. No murmur. Tachycardic Abdomen: Soft nontender, positive bowel sounds no organomegaly. Extremities: Trace edema on the right leg, Gonzalez wrap on the left leg with drainage. Impression: Acute on chronic hypoxic and hypercapnic respiratory failure Acute on chronic diastolic heart failure A. fib with RVR Chronic persistent atrial fibrillation Morbid obesity with BMI of 48 Obstructive sleep apnea History of hypertension History of chronic kidney disease Hyperlipidemia Cellulitis left lower extremity, possible abscess left elbow Plan: Continue patient's home cardiac medications Continue Toprol-XL increased to 150 mg daily Continue Lasix 40 mg IV every 12 hours, monitor I&O, daily weights, I's renal function Further recommendations as patient progresses. Thank you kindly for this consultation Nurse practitioner note has been reviewed, I agree with the documented findings and plan of care. Patient was seen and examined. 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 History of Any Multi-Drug Resistant Organisms: MRSA Date of last positivie culture/infection: 04/05/22 MDRO Source:: Left Leg Past Surgical History: Hernia Repair, Joint Replacement, Orthopedic Surgery Additional Past Surgical History / Comment(s): RT ARMAND, rt foot SX, Past Anesthesia/Blood Transfusion Reactions: No Reported Reaction Past Psychological History: Depression Smoking Status: Former smoker Past Alcohol Use History: None Reported Past Drug Use History: None Reported - Past Family History Mother Family Medical History: No Reported History Medications and Allergies Home Medications Medication Instructions Recorded Confirmed Type Apixaban [Eliquis] 5 mg PO BID #60 tab 05/13/21 11/14/22 Rx Albuterol Sulfate [Proair Hfa] 2 puff INHALATION RT-Q4H PRN 04/05/22 11/14/22 History Losartan [Cozaar] 25 mg PO HS 07/09/22 11/14/22 History hydrOXYzine pamoate 50 mg PO HS PRN 07/09/22 11/14/22 History Atorvastatin [Lipitor] 10 mg PO DAILY 08/01/22 11/14/22 History Budesonide-Formot 160-4.5 Mcg 2 puff INHALATION RT-BID 08/01/22 11/14/22 History [Symbicort 160-4.5 Mcg Inhaler] INSULIN ASPART (NovoLOG) [NovoLOG See Protocol SQ ACHS 09/04/22 11/14/22 History (formulary)] traMADol HCL 50 mg PO Q6H PRN 09/04/22 11/14/22 History Dapagliflozin Propanediol [Farxiga] 10 mg PO DAILY 30 Days #30 tab 09/10/22 11/14/22 Rx Famotidine [Pepcid] 20 mg PO BID #60 tab 09/10/22 11/14/22 Rx Melatonin 5 mg PO HS tab 09/10/22 11/14/22 Rx Metoprolol Succinate (ER) [Toprol 100 mg PO DAILY 30 Days #30 tab 09/10/22 11/14/22 Rx XL] busPIRone HCl [Buspar] 5 mg PO TID 30 Days #90 tab 09/10/22 11/14/22 Rx dilTIAZem HCL [dilTIAZem HCL 24Hr 120 mg PO DAILY #0 09/10/22 11/14/22 Rx ER (Xr)] Pregabalin [Lyrica] 100 mg PO TID 10/16/22 11/14/22 History Acetaminophen Tab [Tylenol] 650 mg PO Q4HR PRN tab 10/24/22 11/14/22 Rx Bacitracin Zinc Oint 1 applic TOPICAL BID #1 each 10/24/22 11/14/22 Rx Furosemide [Lasix] 40 mg PO DAILY #30 tablet 10/24/22 11/14/22 Rx Insulin Detemir (Levemir) [Levemir] 15 unit SQ DAILY@0700 #5 each 10/24/22 11/14/22 Rx Ipratropium-Albuterol Nebulize 3 ml INHALATION RT-QID #120 each 10/24/22 11/14/22 Rx [Duoneb 0.5 mg-3 mg/3 ml Soln] Triamcinolone 0.1% Cream [Kenalog 1 applic TOPICAL BID #1 each 10/24/22 11/14/22 Rx 0.1% Cream] [place]-3/Dha/Epa/Fish Oil [Fish Oil 1 cap PO DAILY 11/14/22 11/14/22 History 1,000 mg Softgel] Spironolactone [Aldactone] 25 mg PO DAILY 11/14/22 11/14/22 History Ubidecarenone [Coenzyme Q10] 200 mg PO DAILY 11/14/22 11/14/22 History Allergies Allergy/AdvReac Type Severity Reaction Status Date / Time No Known Allergies Allergy Verified 11/14/22 17:24 Physical Exam Vitals: Vital Signs Temp Pulse Pulse Pulse Resp BP Pulse Ox 11/17/22 08:05 108 H 92 L 11/17/22 04:00 98.1 F 112 H 18 124/51 93 L 11/17/22 02:00 108 H 100 18 11/16/22 23:51 100 18 119/70 92 L 11/16/22 20:00 98.4 F 108 H 102 H 18 159/65 86 L 11/16/22 16:00 72 18 115/68 96 11/16/22 15:51 116 H 11/16/22 15:44 118 H 11/16/22 14:00 108 H 118 H 18 11/16/22 12:00 118 H 18 102/68 91 L 11/16/22 11:48 112 H 11/16/22 11:40 108 H 11/16/22 08:43 120 H 11/16/22 08:35 111 H 90 L Intake and Output 11/16/22 11/17/22 11/17/22 22:59 06:59 14:59 Intake Total 540 Balance 540 Intake: Oral 540 Other: # Voids 2 # Bowel Movements 1 Weight 162.9 kg Results 11/17/22 07:39 11/17/22 07:39 CBC 11/17/22 Range/Units 07:39 WBC 5.9 (3.8-10.6) k/uL RBC 4.94 (4.30-5.90) m/uL Hgb 14.1 (13.0-17.5) gm/dL Hct 43.4 (39.0-53.0) % Plt Count 294 (150-450) k/uL Comprehensive Metabolic Panel 11/16/22 Range/Units 11:42 Sodium 140 (137-145) mmol/L Potassium 4.7 (3.5-5.1) mmol/L Chloride 96 L (98-107) mmol/L Carbon Dioxide 36 H (22-30) mmol/L BUN 30 H (9-20) mg/dL Creatinine 1.56 H (0.66-1.25) mg/dL Glucose 92 (74-99) mg/dL Calcium 8.4 (8.4-10.2) mg/dL Current Medications Generic Name Dose Route Start Last Admin Trade Name Freq PRN Reason Stop Dose Admin Acetaminophen 650 mg 11/14/22 20:22 11/15/22 09:10 Acetaminophen Tab 325 Mg Tab PO 650 mg Q6HR PRN Administration Mild Pain or Fever > 100.5 Hydrocodone Bitart/Acetaminophen 1 each 11/15/22 22:02 11/16/22 23:34 Hydrocodone/Apap 5-325mg 1 Each Tab PO 1 each Q6HR PRN Administration Pain Al Hydroxide/Mg Hydroxide 15 ml 11/14/22 20:22 Mag Hydrox/Al Hydrox/Simeth 30 Ml Cup PO Q6HR PRN Indigestion Albuterol/Ipratropium 3 ml 11/15/22 08:00 11/17/22 08:03 Ipratropium-Albuterol 3 Ml Neb INHALATION 3 ml RT-QID OBI Administration Albuterol/Ipratropium 3 ml 11/15/22 04:26 Ipratropium-Albuterol 3 Ml Neb INHALATION RT-Q2H PRN Shortness Of Breath Or Wheezing Apixaban 5 mg 11/15/22 09:00 11/16/22 20:33 Apixaban 5 Mg Tab PO 5 mg BID OBI Administration Protocol Atorvastatin Calcium 10 mg 11/15/22 09:45 11/16/22 08:31 Atorvastatin 10 Mg Tab PO 10 mg DAILY OBI Administration Budesonide/Formoterol Fumarate 2 puff 11/15/22 08:00 11/17/22 08:03 Symbicort 160-4.5 Mcg Inhaler INHALATION 2 puff RT-BID OBI Administration Buspirone HCl 5 mg 11/15/22 09:45 11/16/22 20:33 Buspirone Hcl 5 Mg Tab PO 5 mg TID OBI Administration Dapagliflozin 10 mg 11/15/22 09:45 11/16/22 08:31 Dapagliflozin Propanediol 10 Mg Tablet PO 10 mg DAILY OBI Administration Dextrose/Water 25 ml 11/15/22 04:29 Dextrose 50% Syringe 50 Ml IVP PER PROTOCOL PRN Hypoglycemia Protocol Dextrose/Water 50 ml 11/15/22 04:29 Dextrose 50% Syringe 50 Ml IVP PER PROTOCOL PRN Hypoglycemia Protocol Diltiazem HCl 120 mg 11/15/22 09:45 11/16/22 06:16 Diltiazem Cd 120 Mg Cap.Er.24h PO 120 mg DAILY OBI Administration Famotidine 20 mg 11/14/22 21:00 11/16/22 20:33 Famotidine 20 Mg Tab PO 20 mg BID OBI Administration Furosemide 40 mg 11/15/22 09:00 11/16/22 20:34 Furosemide 10 Mg/Ml 4 Ml Vial IV 40 mg Q12HR OBI Administration Vancomycin HCl 2,500 mg/ 500 mls @ 167 mls/hr 11/15/22 17:00 11/16/22 17:40 Sodium Chloride IVPB 167 mls/hr Q24H OBI Administration Insulin Aspart 0 unit 11/15/22 07:30 11/17/22 06:18 Insulin Aspart (Novolog) 100 Unit/Ml Vial SQ Not Given ACHS [facility] Protocol Insulin Detemir 15 unit 11/15/22 07:00 11/17/22 06:29 Insulin Detemir (Levemir) 100 Unit/Ml Syr SQ 15 unit DAILY@0700 OBI Administration Melatonin 5 mg 11/15/22 21:00 11/16/22 20:33 Melatonin 5 Mg Tablet PO 5 mg HS [facility] Administration Metoprolol Succinate 100 mg 11/15/22 09:00 11/16/22 08:32 Metoprolol Succinate (Er) 100 Mg Tab.Er.24h PO 100 mg DAILY OBI Administration Morphine Sulfate 2 mg 11/15/22 16:25 11/15/22 18:23 Morphine Sulfate 2 Mg/Ml Syringe IVP 2 mg Q6HR PRN Administration Pain/Discomfort Naloxone HCl 0.2 mg 11/14/22 20:22 Naloxone 0.4 Mg/Ml 1 Ml Vial IV Q2M PRN Opioid Reversal Ondansetron HCl 4 mg 11/14/22 20:22 Ondansetron 4 Mg/2 Ml Vial IVP Q8HR PRN Nausea And Vomiting Pregabalin 100 mg 11/15/22 09:45 11/16/22 20:33 Pregabalin 100 Mg Cap PO 100 mg TID OBI Administration Tramadol HCl 50 mg 11/15/22 09:43 11/16/22 08:31 Tramadol 50 Mg Tab PO 50 mg Q6H PRN Administration Pain Intake and Output 11/16/22 11/17/22 11/17/22 22:59 06:59 14:59 Intake Total 540 Balance 540 Intake: Oral 540 Other: # Voids 2 # Bowel Movements 1 Weight 162.9 kg 11/17/22 07:39 11/16/22 11:42
[2022-11-17 12:22] LABS: Appearance,Urine Clear (Clear); Bilirubin,Urine Negative (Negative); Blood,Urine Negative (Negative); Color,Urine Colorless; Glucose,Urine (UA) 3+ (Negative); Ketones,Urine Negative (Negative); Leukocyte Esterase,Urine Negative (Negative); Nitrite,Urine Negative (Negative); Protein,Urine Negative (Negative); Specific Gravity,Urine 1.005 (1.001-1.035); Urobilinogen,Urine <2.0 mg/dL (<2.0)
--- NOTE | 2022-11-17 12:56 | P.PN ---
Subjective Progress Note Date: 11/17/22 I am seeing this patient in new consultation today 10/17/2022 in the emergency room for a likely mild CHF exacerbation and cellulitis. Patient is a 57-year-old white male with past medical history of atrial fibrillation, congestive heart failure, severe COPD with an FEV1 22% of predicted, oxygen dependent on 2 L nasal cannula at home, obstructive sleep apnea with home VPAP machine, hyperlipidemia, hypertension, obesity, chronic kidney disease stage III, lower extremity edema and cellulitis. Patient does follow with Dr. Gregory for management of his COPD and obstructive sleep apnea, and was sent o lazarus from the office yesterday for progressive shortness of breath, worsening lower extremity swelling, and erythema. Patient's symptoms have progressively worsened since his recent hospital discharge last month. He reports shortness of breath on exertion and when lying flat. He also reports an associated 30 pound weight gain over last couple days. Bilateral lower extremities are severely edematous and weeping. There are multiple open sores and his legs are more erythematous than baseline according to the patient. His legs are very tender to palpation. He also has a left upper extremity area of erythema and induration concerning for cellulitis. Patient is currently sitting up in bed, on 4 L nasal cannula, in no acute distress. Chest x-ray on arrival showed cardiomegaly and mild pulmonary vascular congestion. NT proBNP was elevated at 3640. He was given one dose of Lasix 40 mg in the emergency room, and he has reportedly used the urinal multiple times. CBC on arrival is unremarkable. BMP showed a sodium 138, potassium 5.5, chloride 97, serum CO2 chronically elevated at 35, BUN 43, creatinine 1.64, glucose 88. Normal saline is infusing at 20 ML's per hour. Lactic acid level was 1.4. Troponin negative 1. ECG shows atrial fibrillation with controlled ventricular rate and no obvious ischemic changes. D-dimer was elevated, and he is unable to undergo chest CTA due to r enal function. Vital signs are stable at this time. Patient will be transferred to the cardiac stepdown unit once bed available. The patient is seen today in 11/16/2022 in follow-up on the selective care unit. He is currently sitting up at the bedside. Awake and alert in no acute distress. Denies any worsening shortness of breath, cough or congestion. Pulmonary perfusion test Velo an intermediate probability for pulmonary embolus. He is maintaining O2 saturations in the 90s on 2 L/m per nasal cannula. No worsening shortness of breath, cough or congestion. No hemoptysis. He has been seen and evaluated by infectious disease. Left lower extremity wound cultures are pending. Blood cultures are pending. Sodium 140. Potassium 4.7. Bicarb 36. BUN 30. Creatinine 1.56. Glucose 92. He is on antibiotics in the form of vancomycin. Remains on Symbicort, DuoNeb inhalations. Anticoagulated with Eliquis. Remains on IV diuretics. Currently in a negative balance. The patient is seen today 11/17/2022 in follow-up on the selective care unit. He is currently sitting up in bed. Awake and alert in no acute distress. He did wear his home CPAP last night. He is currently on 3 L nasal cannula with O2 saturations at 96%. Afebrile. Hemodynamically stable. Earlier this morning staff had trouble arousing him and felt he had altered mental status. Arterial blood gases on 28% FiO2 revealed a PaO2 of 60, pCO2 of 53 and a pH of 7.44. Computed tomography scan of the brain revealed no acute intracranial hemorrhage or midline shift. No significant change from previous CT of 03/2022. White count 5.9. Hemoglobin 14.9. Sodium 141. Potassium 4.3. Bicarb 35. BUN 25. Creatinine 1.49. Glucose 124. Urinalysis clean. He is continued on DuoNeb inhalations, Symbicort, antibiotics in the form of vancomycin and cefepime. Anticoagulated with Eliquis. Remains on IV diuretics. No accurate intake and output recorded. Gonzalez wraps to bilateral lower extremities. ID is following. Objective - Vital Signs Vital signs: Vital Signs Temp 97.9 F 11/17/22 11:45 Pulse 88 11/17/22 11:45 Resp 18 11/17/22 11:45 BP 135/88 11/17/22 11:45 Pulse Ox 96 11/17/22 11:45 FiO2 Intake & Output 11/16/22 11/17/22 11/17/22 18:59 06:59 18:59 Intake Total 1440 540 250 Balance 1440 540 250 Weight 162.9 kg Intake: Oral 1440 540 250 Other: # Voids 2 # Bowel Movements 1 0 - Exam GENERAL EXAM: Alert, morbidly obese 57-year-old male, on 3 L nasal cannula, comfortable in no apparent distress. HEAD: Normocephalic and atraumatic EYES: Normal reaction of pupils, equal size. NOSE: Clear with pink turbinates. THROAT: No erythema or exudates. NECK: No masses, no JVD. CHEST: No chest wall deformity. LUNGS: Equal air entry with no crackles, wheeze, rhonchi or dullness. Diminished. CVS: S1 and S2 normal with no audible murmur, irregular rhythm. No extra heart sounds ABDOMEN: Obese abdomen. No hepatosplenomegaly, active bowel sounds, no guarding or rigidity. SPINE: No scoliosis or deformity SKIN: Bilateral lower extremity erythema and weeping ulcerations. There is also an area of induration and erythema on the left upper extremity. CENTRAL NERVOUS SYSTEM: No focal deficits, tone is normal in all 4 extremities. EXTREMITIES: There is severe bilateral lower extremity edema. Gonzalez wraps applied. No clubbing, or cyanosis. Peripheral pulses are intact. - Labs CBC & Chem 7: 11/17/22 07:39 11/17/22 07:39 Labs: Abnormal Lab Results - Last 24 Hours (Table) 11/16/22 11/16/22 11/16/22 Range/Units 11:42 16:32 19:50 RDW (11.5-15.5) % ABG pCO2 (35-45) mmHg ABG pO2 (83-108) mmHg ABG HCO3 (21-25) mmol/L ABG Total CO2 (19-24) mmol/L ABG O2 Saturation (94-97) % Chloride (98-107) mmol/L Carbon Dioxide (22-30) mmol/L BUN (9-20) mg/dL Creatinine (0.66-1.25) mg/dL Glucose (74-99) mg/dL POC Glucose (mg/dL) 158 H 186 H (70-110) mg/dL Hemoglobin A1c 6.8 H (0.0-6.0) % Urine Glucose (UA) (Negative) 11/17/22 11/17/22 11/17/22 Range/Units 06:03 07:39 07:39 RDW 16.2 H (11.5-15.5) % ABG pCO2 (35-45) mmHg ABG pO2 (83-108) mmHg ABG HCO3 (21-25) mmol/L ABG Total CO2 (19-24) mmol/L ABG O2 Saturation (94-97) % Chloride 96 L (98-107) mmol/L Carbon Dioxide 35 H (22-30) mmol/L BUN 25 H (9-20) mg/dL Creatinine 1.49 H (0.66-1.25) mg/dL Glucose 124 H (74-99) mg/dL POC Glucose (mg/dL) 114 H (70-110) mg/dL Hemoglobin A1c (0.0-6.0) % Urine Glucose (UA) (Negative) 11/17/22 11/17/22 11/17/22 Range/Units 10:29 11:00 12:02 RDW (11.5-15.5) % ABG pCO2 53 H (35-45) mmHg ABG pO2 60 L (83-108) mmHg ABG HCO3 35 H (21-25) mmol/L ABG Total CO2 37 H (19-24) mmol/L ABG O2 Saturation 90.0 L (94-97) % Chloride (98-107) mmol/L Carbon Dioxide (22-30) mmol/L BUN (9-20) mg/dL Creatinine (0.66-1.25) mg/dL Glucose (74-99) mg/dL POC Glucose (mg/dL) 127 H (70-110) mg/dL Hemoglobin A1c (0.0-6.0) % Urine Glucose (UA) 3+ H (Negative) Microbiology - Last 24 Hours (Table) 11/15/22 11:36 Gram Stain - Preliminary Leg - Left Wound Culture - Preliminary Gram Neg Bacilli Presumptive MRSA 11/14/22 16:00 Blood Culture - Preliminary Blood 11/14/22 16:15 Blood Culture - Preliminary Blood Assessment and Plan Assessment: Acute on chronic hypoxemic and hypercapnic respiratory failure, likely related to a mild exacerbation of patient's diastolic heart failure. Currently on 3 L nasal cannula. Suspect bilateral lower extremity cellulitis and the wound cultures revealing gram-negative bacilli, presumptive MRSA Left upper arm carbuncle Severe COPD with an FEV1 22% of predicted at baseline currently inactive and stable Atrial fibrillation with rapid ventricular rate, heart rate is better controlled, anticoagulated with Eliquis Obstructive sleep apnea managed with home CPAP machine Diastolic heart failure. Preserved LV function and ejection fraction of 50-55% Hypertension Hyperlipidemia Chronic kidney disease stage III Chronic lower extremity edema with previous history of infection including MRSA, Enterococcus faecalis, Pseudomonas, Acinetobacter on the left leg wound Ex-smoker, with [id number] history Plan: The patient was seen and evaluated Computed tomography scan brain, ABGs, medications and labs reviewed Her only awake and alert in 3 L nasal cannula Continue to use home CPAP at night and during the day while napping Continue the current treatment plan We will continue to follow I have personally seen and examined the patient, performed the documentation and the assessment and plan as written. Number of minutes spent on the visit: 10.
[2022-11-17] MEDS: VANCOMYCIN 2,500 MG in SODIUM CHLORIDE 0.9% 500 ML 500 ML IVPB SCH (14:52)
[2022-11-17 16:54] LABS: Glucose,Whole Blood 127 mg/dL (70-110)
[2022-11-17] MEDS: HYDROcodone/APAP 5-325MG 1 EACH TAB PO PRN (18:53)
[2022-11-17 20:18] LABS: Glucose,Whole Blood 190 mg/dL (70-110)
[2022-11-17] MEDS: MELATONIN 5 MG TABLET PO SCH (21:48)
--- NOTE | 2022-11-17 22:30 | P.PN ---
Subjective Progress Note Date: 11/17/22 Principal diagnosis: Left leg wound and cellulitis Patient is a 57-year-old male with a past medical history significant for COPD atrial fibrillation hypertension hyperlipidemia has been sent to the ER from his PCP office for evaluation of increasing shortness of breath leg swelling redness especially involving the left leg. On today's evaluation that is 11/17/2022 patient remains to be afebrile patient is breathing comfortably currently on 3 L nasal cannula but denies any chest pain no worsening cough no nausea vomiting no abdominal pain or any worsening pain to lower extremity Objective - Vital Signs Vital signs: Vital Signs Temp 97.5 F L 11/17/22 08:10 Pulse 114 H 11/17/22 10:44 Resp 18 11/17/22 08:10 BP 134/79 11/17/22 08:10 Pulse Ox 90 L 11/17/22 08:10 FiO2 Intake & Output 11/16/22 11/17/22 11/17/22 18:59 06:59 18:59 Intake Total 1440 540 250 Balance 1440 540 250 Weight 162.9 kg Intake: Oral 1440 540 250 Other: # Voids 2 # Bowel Movements 1 0 - Exam GENERAL DESCRIPTION: Middle-age male up in bed in no distress RESPIRATORY SYSTEM: Unlabored breathing , decreased breath sounds at bases HEART: S1 S2 regular rate and rhythm , ABDOMEN: Soft , no tenderness EXTREMITIES: Legs are currently No drainage on the dressing - Labs CBC & Chem 7: 11/17/22 07:39 11/17/22 07:39 Labs: Abnormal Lab Results - Last 24 Hours (Table) 11/16/22 11/16/22 11/16/22 Range/Units 11:42 11:42 16:32 RDW (11.5-15.5) % ABG pCO2 (35-45) mmHg ABG pO2 (83-108) mmHg ABG HCO3 (21-25) mmol/L ABG Total CO2 (19-24) mmol/L ABG O2 Saturation (94-97) % Chloride 96 L (98-107) mmol/L Carbon Dioxide 36 H (22-30) mmol/L BUN 30 H (9-20) mg/dL Creatinine 1.56 H (0.66-1.25) mg/dL Glucose (74-99) mg/dL POC Glucose (mg/dL) 158 H (70-110) mg/dL Hemoglobin A1c 6.8 H (0.0-6.0) % 11/16/22 11/17/22 11/17/22 Range/Units 19:50 06:03 07:39 RDW (11.5-15.5) % ABG pCO2 (35-45) mmHg ABG pO2 (83-108) mmHg ABG HCO3 (21-25) mmol/L ABG Total CO2 (19-24) mmol/L ABG O2 Saturation (94-97) % Chloride 96 L (98-107) mmol/L Carbon Dioxide 35 H (22-30) mmol/L BUN 25 H (9-20) mg/dL Creatinine 1.49 H (0.66-1.25) mg/dL Glucose 124 H (74-99) mg/dL POC Glucose (mg/dL) 186 H 114 H (70-110) mg/dL Hemoglobin A1c (0.0-6.0) % 11/17/22 11/17/22 Range/Units 07:39 10:29 RDW 16.2 H (11.5-15.5) % ABG pCO2 53 H (35-45) mmHg ABG pO2 60 L (83-108) mmHg ABG HCO3 35 H (21-25) mmol/L ABG Total CO2 37 H (19-24) mmol/L ABG O2 Saturation 90.0 L (94-97) % Chloride (98-107) mmol/L Carbon Dioxide (22-30) mmol/L BUN (9-20) mg/dL Creatinine (0.66-1.25) mg/dL Glucose (74-99) mg/dL POC Glucose (mg/dL) (70-110) mg/dL Hemoglobin A1c (0.0-6.0) % Microbiology - Last 24 Hours (Table) 11/15/22 11:36 Gram Stain - Preliminary Leg - Left Wound Culture - Preliminary Gram Neg Bacilli Presumptive MRSA 11/14/22 16:00 Blood Culture - Preliminary Blood 11/14/22 16:15 Blood Culture - Preliminary Blood Assessment and Plan (1) Left leg cellulitis Current Visit: Yes Status: Acute Code(s): L03.116 - CELLULITIS OF LEFT LOWER LIMB SNOMED Code(s): 580081260 Plan: 1patient was in the hospital increasing shortness of breath also have evidence of increasing swelling redness to the left leg present superficial ulceration from ruptured blister concerning for cellulitis, likely from her gram-positive skin alesia for the patient being in neuro the hospital will need to cover for resistant gram-positive such as MRSA. 2local wound care to the left lower extremity wound with Aquacel silver dressing to the open wound followed by Gonzalez wrap from just about the total below the knee 3Patient local cultures currently growing present MRSA and gram-negative patient to continue with vancomycin cefepime has been added to cover for the gram-negative wali awaiting further culture to finalize and monitor clinical course closely Time with Patient: Less than 30
[2022-11-18] MEDS: CEFEPIME 2 GM in SODIUM CHLORIDE 0.9% 100 ML IVPB SCH ×3 (04:36→21:05)
[2022-11-18] MEDS: VANCOMYCIN 2,500 MG in SODIUM CHLORIDE 0.9% 500 ML 500 ML IVPB SCH ×2 (06:06→21:08)
[2022-11-18] MEDS: HYDROcodone/APAP 5-325MG 1 EACH TAB PO PRN ×2 (06:06→14:58)
[2022-11-18] MEDS: INSULIN DETEMIR (LEVEMIR) 100 UNIT/ML SYR SQ SCH (06:06)
[2022-11-18 06:22] LABS: Glucose,Whole Blood 131 mg/dL (70-110)
[2022-11-18] MEDS: INSULIN ASPART (NovoLOG) 100 UNIT/ML VIAL SQ SCH ×6 (06:40→21:10)
[2022-11-18] MEDS: SYMBICORT 160-4.5 MCG INHALER INHALATION SCH ×2 (08:30→20:59)
[2022-11-18] MEDS: IPRATROPIUM-ALBUTEROL 3 ML NEB INHALATION SCH ×4 (08:30→20:59)
[2022-11-18] MEDS: FUROSEMIDE 10 MG/ML 4 ML VIAL IV SCH ×2 (09:00→21:06)
[2022-11-18] MEDS: METOPROLOL SUCCINATE (ER) 50 MG TAB.ER.24H PO SCH (09:00)
[2022-11-18] MEDS: FAMOTIDINE 20 MG TAB PO SCH ×2 (09:00→21:06)
[2022-11-18] MEDS: PREGABALIN 100 MG CAP PO SCH ×3 (09:01→21:06)
[2022-11-18] MEDS: busPIRone HCl 5 MG TAB PO SCH ×3 (09:01→21:06)
[2022-11-18] MEDS: DAPAGLIFLOZIN PROPANEDIOL 10 MG TABLET PO SCH (09:01)
[2022-11-18] MEDS: APIXABAN 5 MG TAB PO SCH ×2 (09:01→21:06)
[2022-11-18] MEDS: ATORVASTATIN 10 MG TAB PO SCH (09:01)
[2022-11-18] MEDS: DILTIAZEM CD 120 MG CAP.ER.24H PO SCH (09:01)
--- NOTE | 2022-11-18 09:34 | P.PN ---
Subjective Progress Note Date: 11/18/22 This is a 57 year old male with medical history of atrial fibrillation anticoagulated with eliquis, asthma, COPD, heart failure, hypertension, hyperlipidemia, sleep apnea with CPAP use, former smoker. Patient presented to the hospital with complaints of shortness of breath and leg swelling with redness he was sent in from PCPs office. Patient was recently admitted to the hospital from October 16 to October 24 for an acute COPD exacerbation and was discharged home. Patient does have multiple admissions for the same. Initial chest x-ray reveals cardiomegaly and mild pulmonary vascular congestion correl ate with BNP for congestive heart failure. EKG showing atrial fibrillation with a heart rate of 94. This ST deviation and moderate T-wave abnormality consider anterior ischemia. Troponin level is negative, proBNP is 3640. Patient is a elevated potassium of 5.5, mild acute kidney injury BUN 43, creatinine 1.64. Id. is elevated at 1.80. Patient has no elevated white count. Patient is afebrile, currently on oxygen at 2-3 L of nasal cannula. Bilateral lower extremities left greater than right with significant redness and there are multiple ulcerations which are weeping and appear infected which will be cultured. Patient denies fever/chills at home. Denies chest pain, currently not complaining for shortness of breath. Complaining of significant neuropathic pain worse in the right toes. There is also a wound to the left elbow outer aspect which has significant area of induration and surrounding redness, patient states had purulent drainage. Surgery will be consulted for this. Patient will be admitted to the hospital for left leg cellulitis, shortness of breath in the COPD/CHF. Patient has been started on IV vancomycin, pulmonary and infectious disease service is consulted. Patient has been started on IV Lasix. 11/16/2022 Patient is evaluated today on the medical floor. he continues on IV lasix 40 mg Q12 with significant redness and swelling to the lower extremities. Wounds on the left leg have been cultured and currently pending. Infectious disease following and patient is maintained on IV vancomycin at this time. Continues on toprol and oral cardizem with heart rate in the 110s to 120s and cardiology has been consulted for the rapid rate, patient remains in atrial fibrillation at this time. Weaned to home oxygen at 2L nasal cannula. Had brown drainage from the wound to the left upper extremity and patient will be monitored closely on IV antibiotics with general surgery not planning on an I&D at this time. creatinine stable at 1.56 today. 11/17/2022 Patient remains on the medical floor. There is concern patient was obtunded this morning per nurse patient had taken his oxygen off and patient had taken himself off his CPAP. ABGs will be ordered. Brain CT will be ordered. Patient remains on IV vancomycin and wound cultures are currently pending at this time. Hemoglobin A1C is 6.8. Creatinine improved to 1.49. Remains on IV lasix. 11/18/2022 Patient is being followed by infectious disease closely for the lower extremity cellulitis worse on the left, wound cultures of the left leg showing presumptive MRSA and Gram negative bacilli. Patient remains on IV vancomycin and also IV cefepime. Creatinine today is 1.48. Patient had a brain CT done yesterday showing no acute stroke hemorrhage or midline shift. 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 A UA was done and negative. Blood glucose elevated and meal time insulin has been added. Cardiology following and adjusting medications heart rate is improving. No plans for I and D of the left elbow at this time. Remains on 3L nasal cannula. Review of Systems Constitutional: Denied any fatigue denied any fever. Cardio vascular: denied any chest pain, palpitations Gastrointestinal: denied any nausea, vomiting, diarrhea Pulmonary: Denied any shortness of breath cough Neurologic denied any new focal deficits has weakness. All inpatient medications were reviewed and appropriate changes in these medications as dictated in the interval history and assessment and plan. PHYSICAL EXAMINATION: GENERAL: The patient is alert and oriented x3, with moments of confusion.Not in any acute distress. Well developed, well nourished. Obese. on 3L nasal cannula/CPAP HEENT: Pupils are round and equally reacting to light. EOMI. No scleral icterus. No conjunctival pallor. Normocephalic, atraumatic. No pharyngeal erythema. No thyromegaly. CARDIOVASCULAR: S1 and S2 present. No murmurs, rubs, or gallops. Irregularly irregular. PULMONARY: Chest is clear to auscultation, no wheezing or crackles. Diminished. ABDOMEN: Soft, nontender, nondistended, normoactive bowel sounds. No palpable organomegaly. Obese. MUSCULOSKELETAL: No joint swelling or deformity. EXTREMITIES: +1 pitting lower extremity edema. NEUROLOGICAL: Gross neurological examination did not reveal any focal deficits. SKIN: No rashes. Bilateral lower extremity cellulitis right left greater than right with multiple ulcerations appear infected significant redness. Wound to the left elbow with induration and surrounding redness. Assessment and Plan Shortness of breath Mild acute on chronic heart failure with preserved EF on most recent echocardiogram Bilateral lower extremity cellulitis with multiple areas of ulceration from venous stasis, with sepsis present on admission left greater than right. Cultures showing MRSA Cellulitis and possible abscess to the left upper extremity near elbow Chronic atrial fibrillation with rapid ventricular rate anticoagulated with eliquis History COPD/asthma Acute on chronic renal failure Elevated DDimer VQ scan showing intermediate probability of PE Acute on chronic hypoxic respiratory failure on 2L nasal cannula /CPAP Altered mental status likely from acute metabolic encephalopathy patient is also hypoxic taking off his oxygen Diabetes Mellitus type 2 with hemoglobin A1C of 6.8. Hypertension Hyperlipidemia Obstructive sleep apnea with CPAP use Depression Former smoker GI prophylaxis DVT prophylaxis as above Full Code Plan Continue IV lasix monitor intake and output Wound cultures showing presum MRSA and gram neg on IV antibiotics ID following. Pending final cultures Patient is being following by ID, cardiology, surgery, and pulmonology The impression and plan of care has been dictated by Nurse Marilou Pra ctitioner as directed. Dr. Ja MD I have performed a history and physical examination and medical decision making of this patient, discussed the same with the dictator, and agree with the dictators assessment and plan as written, documented as a scribe. Based on total visit time, I have performed more than 50% of this visit. Objective - Vital Signs Vital signs: Vital Signs Temp 98.1 F 11/18/22 04:00 Pulse 106 H 11/18/22 08:41 Resp 18 11/18/22 04:00 BP 131/82 11/18/22 04:00 Pulse Ox 95 11/18/22 08:30 FiO2 Intake & Output 11/17/22 11/18/22 11/18/22 18:59 06:59 18:59 Intake Total 1512 100 720 Output Total 1000 Balance 512 100 720 Weight 162.6 kg Intake: Intake, IV Titration 600 100 Amount Cefepime 2 gm In Sodium 100 100 Chloride 0.9% 100 ml @ 25 mls/hr IVPB Q8H [facility] Rx#: [id number] Vancomycin 2,500 mg In 500 Sodium Chloride 0.9% 500 ml 500 ml @ 167 mls/hr IVPB Q16H [facility] Rx#: [id number] Oral 912 720 Output: Urine 1000 Other: # Bowel Movements 0 - Labs CBC & Chem 7: 11/17/22 07:39 11/18/22 07:40 Labs: Abnormal Lab Results - Last 24 Hours (Table) 11/17/22 11/17/22 11/17/22 Range/Units 10:29 11:00 12:02 ABG pCO2 53 H (35-45) mmHg ABG pO2 60 L (83-108) mmHg ABG HCO3 35 H (21-25) mmol/L ABG Total CO2 37 H (19-24) mmol/L ABG O2 Saturation 90.0 L (94-97) % Creatinine (0.66-1.25) mg/dL POC Glucose (mg/dL) 127 H (70-110) mg/dL Urine Glucose (UA) 3+ H (Negative) 11/17/22 11/17/22 11/18/22 Range/Units 16:52 20:17 06:20 ABG pCO2 (35-45) mmHg ABG pO2 (83-108) mmHg ABG HCO3 (21-25) mmol/L ABG Total CO2 (19-24) mmol/L ABG O2 Saturation (94-97) % Creatinine (0.66-1.25) mg/dL POC Glucose (mg/dL) 127 H 190 H 131 H (70-110) mg/dL Urine Glucose (UA) (Negative) 11/18/22 Range/Units 07:40 ABG pCO2 (35-45) mmHg ABG pO2 (83-108) mmHg ABG HCO3 (21-25) mmol/L ABG Total CO2 (19-24) mmol/L ABG O2 Saturation (94-97) % Creatinine 1.48 H (0.66-1.25) mg/dL POC Glucose (mg/dL) (70-110) mg/dL Urine Glucose (UA) (Negative) Microbiology - Last 24 Hours (Table) 11/15/22 11:36 Anaerobic Culture - Preliminary Leg - Left 11/14/22 16:00 Blood Culture - Preliminary Blood 11/14/22 16:15 Blood Culture - Preliminary Blood 11/15/22 11:36 Gram Stain - Preliminary Leg - Left Wound Culture - Preliminary Gram Neg Bacilli Presumptive MRSA Assessment and Plan Time with Patient: Less than 30
[2022-11-18 11:55] LABS: Glucose,Whole Blood 156 mg/dL (70-110)
[2022-11-18] MEDS ORDERED: DILTIAZEM CD 120 MG CAP.ER.24H PO ONE (12:00)
--- NOTE | 2022-11-18 12:16 | P.PN ---
Subjective Progress Note Date: 11/18/22 I am seeing this patient in new consultation today 10/17/2022 in the emergency room for a likely mild CHF exacerbation and cellulitis. Patient is a 57-year-old white male with past medical history of atrial fibrillation, congestive heart failure, severe COPD with an FEV1 22% of predicted, oxygen dependent on 2 L nasal cannula at home, obstructive sleep apnea with home VPAP machine, hyperlipidemia, hypertension, obesity, chronic kidney disease stage III, lower extremity edema and cellulitis. Patient does follow with Dr. Gregory for management of his COPD and obstructive sleep apnea, and was sent o lazarus from the office yesterday for progressive shortness of breath, worsening lower extremity swelling, and erythema. Patient's symptoms have progressively worsened since his recent hospital discharge last month. He reports shortness of breath on exertion and when lying flat. He also reports an associated 30 pound weight gain over last couple days. Bilateral lower extremities are severely edematous and weeping. There are multiple open sores and his legs are more erythematous than baseline according to the patient. His legs are very tender to palpation. He also has a left upper extremity area of erythema and induration concerning for cellulitis. Patient is currently sitting up in bed, on 4 L nasal cannula, in no acute distress. Chest x-ray on arrival showed cardiomegaly and mild pulmonary vascular congestion. NT proBNP was elevated at 3640. He was given one dose of Lasix 40 mg in the emergency room, and he has reportedly used the urinal multiple times. CBC on arrival is unremarkable. BMP showed a sodium 138, potassium 5.5, chloride 97, serum CO2 chronically elevated at 35, BUN 43, creatinine 1.64, glucose 88. Normal saline is infusing at 20 ML's per hour. Lactic acid level was 1.4. Troponin negative 1. ECG shows atrial fibrillation with controlled ventricular rate and no obvious ischemic changes. D-dimer was elevated, and he is unable to undergo chest CTA due to r enal function. Vital signs are stable at this time. Patient will be transferred to the cardiac stepdown unit once bed available. The patient is seen today in 11/16/2022 in follow-up on the selective care unit. He is currently sitting up at the bedside. Awake and alert in no acute distress. Denies any worsening shortness of breath, cough or congestion. Pulmonary perfusion test Velo an intermediate probability for pulmonary embolus. He is maintaining O2 saturations in the 90s on 2 L/m per nasal cannula. No worsening shortness of breath, cough or congestion. No hemoptysis. He has been seen and evaluated by infectious disease. Left lower extremity wound cultures are pending. Blood cultures are pending. Sodium 140. Potassium 4.7. Bicarb 36. BUN 30. Creatinine 1.56. Glucose 92. He is on antibiotics in the form of vancomycin. Remains on Symbicort, DuoNeb inhalations. Anticoagulated with Eliquis. Remains on IV diuretics. Currently in a negative balance. The patient is seen today 11/17/2022 in follow-up on the selective care unit. He is currently sitting up in bed. Awake and alert in no acute distress. He did wear his home CPAP last night. He is currently on 3 L nasal cannula with O2 saturations at 96%. Afebrile. Hemodynamically stable. Earlier this morning staff had trouble arousing him and felt he had altered mental status. Arterial blood gases on 28% FiO2 revealed a PaO2 of 60, pCO2 of 53 and a pH of 7.44. Computed tomography scan of the brain revealed no acute intracranial hemorrhage or midline shift. No significant change from previous CT of 03/2022. White count 5.9. Hemoglobin 14.9. Sodium 141. Potassium 4.3. Bicarb 35. BUN 25. Creatinine 1.49. Glucose 124. Urinalysis clean. He is continued on DuoNeb inhalations, Symbicort, antibiotics in the form of vancomycin and cefepime. Anticoagulated with Eliquis. Remains on IV diuretics. No accurate intake and output recorded. Gonzalez wraps to bilateral lower extremities. ID is following. The patient is seen today 11/18/2022 in follow-up on the selective care unit. He is awake and alert in no acute distress. Sitting up at the bedside. Denies any worsening shortness of breath, cough or congestion. He is continued on DuoNeb inhalations, Symbicort, antibiotics in the form of vancomycin and cefepime. Remains on IV diuretics. Anticoagulate with Eliquis. Objective - Vital Signs Vital signs: Vital Signs Temp 98.7 F 11/18/22 08:10 Pulse 104 H 11/18/22 12:03 Resp 18 11/18/22 08:10 BP 118/77 11/18/22 08:10 Pulse Ox 95 11/18/22 08:30 FiO2 Intake & Output 11/17/22 11/18/22 11/18/22 18:59 06:59 18:59 Intake Total 4710 647 8401 Output Total 1000 Balance 961 165 1798 Weight 162.6 kg Intake: Intake, IV Titration 600 100 600 Amount Cefepime 2 gm In Sodium 100 100 100 Chloride 0.9% 100 ml @ 25 mls/hr IVPB Q8H [facility] Rx#: [id number] Vancomycin 2,500 mg In 500 500 Sodium Chloride 0.9% 500 ml 500 ml @ 167 mls/hr IVPB Q16H [facility] Rx#: [id number] Oral 912 720 Output: Urine 1000 Other: # Bowel Movements 0 - Exam GENERAL EXAM: Alert, morbidly obese 57-year-old male, sitting up at the bedside, on 3 L nasal cannula, comfortable in no apparent distress. HEAD: Normocephalic and atraumatic EYES: Normal reaction of pupils, equal size. NOSE: Clear with pink turbinates. THROAT: No erythema or exudates. NECK: No masses, no JVD. CHEST: No chest wall deformity. LUNGS: Equal air entry with no crackles, wheeze, rhonchi or dullness. Diminished. CVS: S1 and S2 normal with no audible murmur, irregular rhythm. No extra heart sounds ABDOMEN: Obese abdomen. No hepatosplenomegaly, active bowel sounds, no guarding or rigidity. SPINE: No scoliosis or deformity SKIN: Bilateral lower extremity erythema and weeping ulcerations. There is also an area of induration and erythema on the left upper extremity. CENTRAL NERVOUS SYSTEM: No focal deficits, tone is normal in all 4 extremities. EXTREMITIES: There is severe bilateral lower extremity edema. Gonzalez wraps applied. No clubbing, or cyanosis. Peripheral pulses are intact. - Labs CBC & Chem 7: 11/17/22 07:39 11/18/22 07:40 Labs: Abnormal Lab Results - Last 24 Hours (Table) 11/17/22 11/17/22 11/17/22 Range/Units 11:00 16:52 20:17 Creatinine (0.66-1.25) mg/dL POC Glucose (mg/dL) 127 H 190 H (70-110) mg/dL Urine Glucose (UA) 3+ H (Negative) 11/18/22 11/18/22 11/18/22 Range/Units 06:20 07:40 11:52 Creatinine 1.48 H (0.66-1.25) mg/dL POC Glucose (mg/dL) 131 H 156 H (70-110) mg/dL Urine Glucose (UA) (Negative) Microbiology - Last 24 Hours (Table) 11/15/22 11:36 Gram Stain - Final Leg - Left Wound Culture - Final Serratia species Methicillin resist S. aureus 11/15/22 11:36 Anaerobic Culture - Preliminary Leg - Left 11/14/22 16:00 Blood Culture - Preliminary Blood 11/14/22 16:15 Blood Culture - Preliminary Blood Assessment and Plan Assessment: Acute on chronic hypoxemic and hypercapnic respiratory failure, likely related to a mild exacerbation of patient's diastolic heart failure. Remains on IV diuretics. Currently on 3 L nasal cannula. Bilateral lower extremity cellulitis and the wound cultures reveal Serratia species, MRSA here currently on vancomycin and cefepime Left upper arm carbuncle Severe COPD with an FEV1 22% of predicted at baseline currently inactive and stable Atrial fibrillation with rapid ventricular rate, heart rate is better controlled, anticoagulated with Eliquis Obstructive sleep apnea managed with home CPAP machine Diastolic heart failure. Preserved LV function and ejection fraction of 50-55% Hypertension Hyperlipidemia Chronic kidney disease stage III Chronic lower extremity edema with previous history of infection including MRSA, Enterococcus faecalis, Pseudomonas, Acinetobacter on the left leg wound Ex-smoker, with [id number] history Plan: The patient was seen and evaluated Medications and labs reviewed Wound cultures positive for Serratia and MRSA Continued on vancomycin and cefepime Continue to use home CPAP at night and during the day while napping Currently on 3 L nasal cannula while awake We will continue to follow I have personally seen and examined the patient, performed the documentation and the assessment and plan as written. Number of minutes spent on the visit: 10.
--- NOTE | 2022-11-18 13:46 | P.PN ---
Subjective Progress Note Date: 11/18/22 History of Present Illness: The patient is a 57-year-old male patient of Dr. Dickerson with a history of chr onic obstructive lung disease, prior history of smoking, history of atrial fibrillation on eliquis. patient presented to the hospital due to shortness of breath. He was at Dr. Gregory's office and was sent directly to the hospital. He has complaints of weight gain of 30 pounds, orthopnea and dyspnea on exertion. Patient was seen in the emergency center had started on IV Lasix 40 mg every 12 hours. Patient states he has been urinating well since Fay started on this. He is currently on CPAP. He has pulmonary medicine, infectious disease on consult as well as general surgery. We have been consulted regarding atrial fibrillation with RVR. His heart rate is running in the 136 to 140s. He has been resumed on eliquis. EKG A. fib with controlled ventricular rate of 94 on admission, telemetry atrial fibrillation 140s WBC 5.9, hemoglobin 14.1, platelet count 294. Sodium 141, potassium 4.3, chloride 96, CO2 35, BUN 25 creatinine 1.49. Troponin negative 1. ProBNP 3640. Lactic acid 1.4. Hemoglobin A1c 6.8. Chest x-ray reveals cardiomegaly with mild pulmonary vascular congestion. CAT scan of the brain no acute findings VQ scan intermediate probability for pulmonary embolism. Home cardiac medications: Eliquis 5 mg twice daily, atorvastatin 10 mg daily, Cardizem XR 120 mg daily, Lasix 40 mg daily, losartan 25 mg at bedtime, Toprol- XL 100 mg daily, Aldactone 25 mg daily, Farxiga 10 mg daily. 11/18 Patient is seen today in follow-up on the cardiac stepdown unit. Yesterday we had increased Toprol 250 mg daily and IV Lasix at 40 mg every 12 hours. He remains in atrial fibrillation with heart rate of 110-120. Blood pressure 131/82. Physical Examination: 57-year-old male, alert and oriented morbidly obese, Head: Normocephalic. Eyes: Sclerae nonicteric. Neck: Good carotid upstroke, no bruit, no jugular venous distention. Lungs: Decreased air exchange bilaterally Heart: Irregular rate and rhythm, S1-S2, no S3, no rub. No murmur. Tachycardic Abdomen: Soft nontender, positive bowel sounds no organomegaly. Extremities: Trace edema on the right leg, Gonzalez wrap on the left leg with drainage. Impression: Acute on chronic hypoxic and hypercapnic respiratory failure Acute on chronic diastolic heart failure A. fib with RVR Chronic persistent atrial fibrillation Morbid obesity with BMI of 48 Obstructive sleep apnea History of hypertension History of chronic kidney disease Hyperlipidemia Cellulitis left lower extremity, possible abscess left elbow Plan: Continue patient's home cardiac medications Continue Toprol-XL increased to 150 mg daily, increase Cardizem to 240 mg daily Continue Lasix 40 mg IV every 12 hours, monitor I&O, daily weights, I's renal function Further recommendations as patient progresses. Thank you kindly for this consultation Nurse practitioner note has been reviewed, I agree with the documented findings and plan of care. Patient was seen and examined. Objective - Vital Signs Vital signs: Vital Signs Temp 98.7 F 11/18/22 08:10 Pulse 106 H 11/18/22 08:41 Resp 18 11/18/22 08:10 BP 118/77 11/18/22 08:10 Pulse Ox 95 11/18/22 08:30 FiO2 Intake & Output 11/17/22 11/18/22 11/18/22 18:59 06:59 18:59 Intake Total 5771 225 3962 Output Total 1000 Balance 238 632 9725 Weight 162.6 kg Intake: Intake, IV Titration 600 100 600 Amount Cefepime 2 gm In Sodium 100 100 100 Chloride 0.9% 100 ml @ 25 mls/hr IVPB Q8H [facility] Rx#: [id number] Vancomycin 2,500 mg In 500 500 Sodium Chloride 0.9% 500 ml 500 ml @ 167 mls/hr IVPB Q16H [facility] Rx#: [id number] Oral 912 720 Output: Urine 1000 Other: # Bowel Movements 0 - Labs CBC & Chem 7: 11/17/22 07:39 11/18/22 07:40 Labs: Abnormal Lab Results - Last 24 Hours (Table) 11/17/22 11/17/22 11/17/22 Range/Units 10:29 11:00 12:02 ABG pCO2 53 H (35-45) mmHg ABG pO2 60 L (83-108) mmHg ABG HCO3 35 H (21-25) mmol/L ABG Total CO2 37 H (19-24) mmol/L ABG O2 Saturation 90.0 L (94-97) % Creatinine (0.66-1.25) mg/dL POC Glucose (mg/dL) 127 H (70-110) mg/dL Urine Glucose (UA) 3+ H (Negative) 11/17/22 11/17/22 11/18/22 Range/Units 16:52 20:17 06:20 ABG pCO2 (35-45) mmHg ABG pO2 (83-108) mmHg ABG HCO3 (21-25) mmol/L ABG Total CO2 (19-24) mmol/L ABG O2 Saturation (94-97) % Creatinine (0.66-1.25) mg/dL POC Glucose (mg/dL) 127 H 190 H 131 H (70-110) mg/dL Urine Glucose (UA) (Negative) 11/18/22 Range/Units 07:40 ABG pCO2 (35-45) mmHg ABG pO2 (83-108) mmHg ABG HCO3 (21-25) mmol/L ABG Total CO2 (19-24) mmol/L ABG O2 Saturation (94-97) % Creatinine 1.48 H (0.66-1.25) mg/dL POC Glucose (mg/dL) (70-110) mg/dL Urine Glucose (UA) (Negative) Microbiology - Last 24 Hours (Table) 11/15/22 11:36 Anaerobic Culture - Preliminary Leg - Left 11/14/22 16:00 Blood Culture - Preliminary Blood 11/14/22 16:15 Blood Culture - Preliminary Blood 11/15/22 11:36 Gram Stain - Preliminary Leg - Left Wound Culture - Preliminary Gram Neg Bacilli Presumptive MRSA
--- NOTE | 2022-11-18 15:46 | P.PN ---
Subjective Progress Note Date: 11/18/22 Principal diagnosis: Left leg wound and cellulitis Patient is a 57-year-old male with a past medical history significant for COPD atrial fibrillation hypertension hyperlipidemia has been sent to the ER from his PCP office for evaluation of increasing shortness of breath leg swelling redness especially involving the left leg. On today's evaluation that is 11/18/2022 patient continues to be afebrile patient is breathing comfortably currently on 3 L nasal cannula , the patient denies any chest pain no worsening cough no nausea vomiting no abdominal pain and the patient pain to lower extremity is currently controlled Objective - Vital Signs Vital signs: Vital Signs Temp 98 F 11/18/22 12:00 Pulse 104 H 11/18/22 12:03 Resp 18 11/18/22 12:00 BP 130/69 11/18/22 12:00 Pulse Ox 96 11/18/22 12:00 FiO2 Intake & Output 11/17/22 11/18/22 11/18/22 18:59 06:59 18:59 Intake Total 5804 208 0625 Output Total 1000 Balance 005 491 7819 Weight 162.6 kg Intake: Intake, IV Titration 600 100 600 Amount Cefepime 2 gm In Sodium 100 100 100 Chloride 0.9% 100 ml @ 25 mls/hr IVPB Q8H OBI Rx#: [id number] Vancomycin 2,500 mg In 500 500 Sodium Chloride 0.9% 500 ml 500 ml @ 167 mls/hr IVPB Q16H OBI Rx#: [id number] Oral 912 960 Output: Urine 1000 Other: # Bowel Movements 0 - Exam GENERAL DESCRIPTION: Middle-age male up in bed in no distress RESPIRATORY SYSTEM: Unlabored breathing , decreased breath sounds at bases HEART: S1 S2 regular rate and rhythm , ABDOMEN: Soft , no tenderness EXTREMITIES: Legs are currently No drainage on the dressing - Labs CBC & Chem 7: 11/17/22 07:39 11/18/22 07:40 Labs: Abnormal Lab Results - Last 24 Hours (Table) 11/17/22 11/17/22 11/18/22 Range/Units 16:52 20:17 06:20 Creatinine (0.66-1.25) mg/dL POC Glucose (mg/dL) 127 H 190 H 131 H (70-110) mg/dL 11/18/22 11/18/22 Range/Units 07:40 11:52 Creatinine 1.48 H (0.66-1.25) mg/dL POC Glucose (mg/dL) 156 H (70-110) mg/dL Microbiology - Last 24 Hours (Table) 11/15/22 11:36 Gram Stain - Final Leg - Left Wound Culture - Final Serratia species Methicillin resist S. aureus 11/15/22 11:36 Anaerobic Culture - Preliminary Leg - Left 11/14/22 16:00 Blood Culture - Preliminary Blood 11/14/22 16:15 Blood Culture - Preliminary Blood Assessment and Plan (1) Left leg cellulitis Current Visit: Yes Status: Acute Code(s): L03.116 - CELLULITIS OF LEFT LOWER LIMB SNOMED Code(s): 180354624 Plan: 1patient was in the hospital increasing shortness of breath also have evidence of increasing swelling redness to the left leg present superficial ulceration from ruptured blister concerning for cellulitis, likely from her gram-positive skin alesia for the patient being in neuro the hospital will need to cover for resistant gram-positive such as MRSA. 2local wound care to the left lower extremity wound with Aquacel silver dressing to the open wound followed by Gonzalez wrap from just about the total below the knee 3Patient local cultures currently growing present MRSA and Serratia marcescens for the patient is currently being treated with vancomycin and cefepime, monitor clinical course closely Time with Patient: Less than 30
[2022-11-18 16:53] LABS: Glucose,Whole Blood 119 mg/dL (70-110)
[2022-11-18 20:07] LABS: Glucose,Whole Blood 150 mg/dL (70-110)
[2022-11-18] MEDS: MELATONIN 5 MG TABLET PO SCH (21:06)
[2022-11-19] MEDS: HYDROcodone/APAP 5-325MG 1 EACH TAB PO PRN ×2 (00:45→17:10)
[2022-11-19] MEDS: CEFEPIME 2 GM in SODIUM CHLORIDE 0.9% 100 ML IVPB SCH ×3 (03:16→21:05)
[2022-11-19 06:16] LABS: Glucose,Whole Blood 119 mg/dL (70-110)
[2022-11-19] MEDS: INSULIN ASPART (NovoLOG) 100 UNIT/ML VIAL SQ SCH ×7 (06:27→21:06)
[2022-11-19] MEDS: INSULIN DETEMIR (LEVEMIR) 100 UNIT/ML SYR SQ SCH (06:52)
[2022-11-19] MEDS: IPRATROPIUM-ALBUTEROL 3 ML NEB INHALATION SCH ×4 (08:10→19:41)
[2022-11-19] MEDS: SYMBICORT 160-4.5 MCG INHALER INHALATION SCH ×2 (08:10→19:41)
[2022-11-19 08:11] LABS: Calcium 8.7 mg/dL (8.4-10.2); Potassium 4.1 mmol/L (3.5-5.1)
[2022-11-19] MEDS: busPIRone HCl 5 MG TAB PO SCH ×3 (08:26→21:06)
[2022-11-19] MEDS: DILTIAZEM CD 240 MG CAP.ER.24H PO SCH (08:26)
[2022-11-19] MEDS: FUROSEMIDE 10 MG/ML 4 ML VIAL IV SCH ×2 (08:26→21:05)
[2022-11-19] MEDS: METOPROLOL SUCCINATE (ER) 50 MG TAB.ER.24H PO SCH (08:26)
[2022-11-19] MEDS: APIXABAN 5 MG TAB PO SCH ×2 (08:26→21:07)
[2022-11-19] MEDS: ATORVASTATIN 10 MG TAB PO SCH (08:26)
[2022-11-19] MEDS: FAMOTIDINE 20 MG TAB PO SCH ×2 (08:26→21:06)
[2022-11-19] MEDS: DAPAGLIFLOZIN PROPANEDIOL 10 MG TABLET PO SCH (08:26)
[2022-11-19] MEDS: PREGABALIN 100 MG CAP PO SCH ×3 (08:28→21:06)
[2022-11-19] MEDS ORDERED: DILTIAZEM CD 180 MG CAP.ER.24H PO SCH (09:00)
--- NOTE | 2022-11-19 10:46 | P.PN ---
Subjective Progress Note Date: 11/19/22 History of Present Illness: The patient is a 57-year-old male patient of Dr. Dickerson with a history of chr onic obstructive lung disease, prior history of smoking, history of atrial fibrillation on eliquis. patient presented to the hospital due to shortness of breath. He was at Dr. Gregory's office and was sent directly to the hospital. He has complaints of weight gain of 30 pounds, orthopnea and dyspnea on exertion. Patient was seen in the emergency center had started on IV Lasix 40 mg every 12 hours. Patient states he has been urinating well since Fay started on this. He is currently on CPAP. He has pulmonary medicine, infectious disease on consult as well as general surgery. We have been consulted regarding atrial fibrillation with RVR. His heart rate is running in the 136 to 140s. He has been resumed on eliquis. EKG A. fib with controlled ventricular rate of 94 on admission, telemetry atrial fibrillation 140s WBC 5.9, hemoglobin 14.1, platelet count 294. Sodium 141, potassium 4.3, chloride 96, CO2 35, BUN 25 creatinine 1.49. Troponin negative 1. ProBNP 3640. Lactic acid 1.4. Hemoglobin A1c 6.8. Chest x-ray reveals cardiomegaly with mild pulmonary vascular congestion. CAT scan of the brain no acute findings VQ scan intermediate probability for pulmonary embolism. Home cardiac medications: Eliquis 5 mg twice daily, atorvastatin 10 mg daily, Cardizem XR 120 mg daily, Lasix 40 mg daily, losartan 25 mg at bedtime, Toprol- XL 100 mg daily, Aldactone 25 mg daily, Farxiga 10 mg daily. 11/18 Patient is seen today in follow-up on the cardiac stepdown unit. Yesterday we had increased Toprol to 150 mg daily and IV Lasix at 40 mg every 12 hours. He remains in atrial fibrillation with heart rate of 110-120. Blood pressure 131/82. 11/19 Patient is seen in follow-up. Yesterday we increase Cardizem to 240 mg for heart rate control, continued IV Lasix. Patient states he has somewhat improved shortness of breath. He continues to have lower extremity edema. Gonzalez wrap in place to the left leg. Heart rate is running in the 90s, blood pressure 105/81, pulse ox 95% on 3 L nasal cannula. Repeat blood work reveals BUN 24 creatinine 1.38. Physical Examination: 57-year-old male, alert and oriented morbidly obese, Head: Normocephalic. Eyes: Sclerae nonicteric. Neck: Good carotid upstroke, no bruit, no jugular venous distention. Lungs: Decreased air exchange bilaterally Heart: Irregular rate and rhythm, S1-S2, no S3, no rub. No murmur. Tachycardic Abdomen: Soft nontender, positive bowel sounds no organomegaly. Extremities: Trace edema on the right leg, Gonzalez wrap on the left leg with drainage. Impression: Acute on chronic hypoxic and hypercapnic respiratory failure Acute on chronic diastolic heart failure A. fib with RVR Chronic persistent atrial fibrillation Morbid obesity with BMI of 48 Obstructive sleep apnea History of hypertension History of chronic kidney disease Hyperlipidemia Cellulitis left lower extremity, possible abscess left elbow Plan: Continue patient's current cardiac medications and continue to monitor heart rate and blood pressure Continue Lasix 40 mg IV every 12 hours, monitor I&O, daily weights, I's renal function Further recommendations as patient progresses. Nurse practitioner note has been reviewed, I agree with the documented findings and plan of care. Patient was seen and examined. Objective - Vital Signs Vital signs: Vital Signs Temp 97.9 F 11/19/22 08:00 Pulse 96 11/19/22 08:24 Resp 16 11/19/22 08:00 BP 105/81 11/19/22 08:00 Pulse Ox 95 11/19/22 08:11 FiO2 Intake & Output 11/18/22 11/19/22 11/19/22 18:59 06:59 18:59 Intake Total 2640 2174 480 Output Total 950 600 Balance 1690 1574 480 Weight 163.4 kg Intake: Intake, IV Titration 700 700 Amount Cefepime 2 gm In Sodium 200 200 Chloride 0.9% 100 ml @ 25 mls/hr IVPB Q8H OBI Rx#: [id number] Vancomycin 2,500 mg In 500 500 Sodium Chloride 0.9% 500 ml 500 ml @ 167 mls/hr IVPB Q16H OBI Rx#: [id number] Oral 1940 1474 480 Output: Urine 950 600 Other: # Voids 4 - Labs CBC & Chem 7: 11/17/22 07:39 11/19/22 07:14 Labs: Abnormal Lab Results - Last 24 Hours (Table) 11/18/22 11/18/22 11/18/22 Range/Units 11:52 16:49 20:05 Chloride (98-107) mmol/L Carbon Dioxide (22-30) mmol/L BUN (9-20) mg/dL Creatinine (0.66-1.25) mg/dL Glucose (74-99) mg/dL POC Glucose (mg/dL) 156 H 119 H 150 H (70-110) mg/dL 11/19/22 11/19/22 Range/Units 06:14 07:14 Chloride 97 L (98-107) mmol/L Carbon Dioxide 38 H (22-30) mmol/L BUN 24 H (9-20) mg/dL Creatinine 1.38 H (0.66-1.25) mg/dL Glucose 116 H (74-99) mg/dL POC Glucose (mg/dL) 119 H (70-110) mg/dL Microbiology - Last 24 Hours (Table) 11/14/22 16:00 Blood Culture - Preliminary Blood 11/14/22 16:15 Blood Culture - Preliminary Blood 11/15/22 11:36 Gram Stain - Final Leg - Left Wound Culture - Final Serratia species Methicillin resist S. aureus
[2022-11-19 11:46] LABS: Glucose,Whole Blood 173 mg/dL (70-110)
--- NOTE | 2022-11-19 12:52 | P.PN ---
Subjective Progress Note Date: 11/19/22 CHIEF COMPLAINT: Bilateral lower extremity cellulitis HISTORY OF PRESENT ILLNESS: Surgical service following regards to patient's left elbow with question of abscess. The abscess had drained spontaneously. Patient has no pain. Denies any further drainage. Afebrile. PHYSICAL EXAM: VITAL SIGNS: Reviewed. GENERAL: Well-developed in no acute distress. HEENT: No sclera icterus. Extraocular movements grossly intact. Moist buccal mucosa. Head is atraumatic, normocephalic. ABDOMEN: Soft. Nondistended. Nontender. NEUROLOGIC: Alert and oriented. Cranial nerves II through XII grossly intact. Extremities left elbow medial aspect minimal induration. No evidence of cellulitis. No drainage. Nontender. ASSESSMENT: 1. Left elbow abscess drained spontaneously PLAN: -Continue antibiotics per infectious disease -No surgical intervention planned -Keep area clean and dry Physician Substance Abuse Nurse note has been reviewed by physician. Signing provider agrees with the documented findings, assessment, and plan of care. Objective - Vital Signs Vital signs: Vital Signs Temp 97.9 F 11/19/22 08:00 Pulse 90 11/19/22 12:00 Resp 16 11/19/22 12:00 BP 137/71 11/19/22 12:00 Pulse Ox 87 L 11/19/22 12:00 FiO2 Intake & Output 11/18/22 11/19/22 11/19/22 18:59 06:59 18:59 Intake Total 2640 2174 480 Output Total 950 600 Balance 1690 1574 480 Weight 163.4 kg Intake: Intake, IV Titration 700 700 Amount Cefepime 2 gm In Sodium 200 200 Chloride 0.9% 100 ml @ 25 mls/hr IVPB Q8H OBI Rx#: [id number] Vancomycin 2,500 mg In 500 500 Sodium Chloride 0.9% 500 ml 500 ml @ 167 mls/hr IVPB Q16H OBI Rx#: [id number] Oral 1940 1474 480 Output: Urine 950 600 Other: # Voids 4 - Labs CBC & Chem 7: 11/17/22 07:39 11/19/22 07:14 Labs: Abnormal Lab Results - Last 24 Hours (Table) 11/18/22 11/18/22 11/19/22 Range/Units 16:49 20:05 06:14 Chloride (98-107) mmol/L Carbon Dioxide (22-30) mmol/L BUN (9-20) mg/dL Creatinine (0.66-1.25) mg/dL Glucose (74-99) mg/dL POC Glucose (mg/dL) 119 H 150 H 119 H (70-110) mg/dL 11/19/22 11/19/22 Range/Units 07:14 11:44 Chloride 97 L (98-107) mmol/L Carbon Dioxide 38 H (22-30) mmol/L BUN 24 H (9-20) mg/dL Creatinine 1.38 H (0.66-1.25) mg/dL Glucose 116 H (74-99) mg/dL POC Glucose (mg/dL) 173 H (70-110) mg/dL Microbiology - Last 24 Hours (Table) 11/15/22 11:36 Anaerobic Culture - Final Leg - Left 11/14/22 16:00 Blood Culture - Preliminary Blood 11/14/22 16:15 Blood Culture - Preliminary Blood 11/15/22 11:36 Gram Stain - Final Leg - Left Wound Culture - Final Serratia species Methicillin resist S. aureus
--- NOTE | 2022-11-19 13:08 | P.PN ---
Subjective Progress Note Date: 11/19/22 I am seeing this patient in new consultation today 10/17/2022 in the emergency room for a likely mild CHF exacerbation and cellulitis. Patient is a 57-year-old white male with past medical history of atrial fibrillation, congestive heart failure, severe COPD with an FEV1 22% of predicted, oxygen dependent on 2 L nasal cannula at home, obstructive sleep apnea with home VPAP machine, hyperlipidemia, hypertension, obesity, chronic kidney disease stage III, lower extremity edema and cellulitis. Patient does follow with Dr. Gregory for management of his COPD and obstructive sleep apnea, and was sent o lazarus from the office yesterday for progressive shortness of breath, worsening lower extremity swelling, and erythema. Patient's symptoms have progressively worsened since his recent hospital discharge last month. He reports shortness of breath on exertion and when lying flat. He also reports an associated 30 pound weight gain over last couple days. Bilateral lower extremities are severely edematous and weeping. There are multiple open sores and his legs are more erythematous than baseline according to the patient. His legs are very tender to palpation. He also has a left upper extremity area of erythema and induration concerning for cellulitis. Patient is currently sitting up in bed, on 4 L nasal cannula, in no acute distress. Chest x-ray on arrival showed cardiomegaly and mild pulmonary vascular congestion. NT proBNP was elevated at 3640. He was given one dose of Lasix 40 mg in the emergency room, and he has reportedly used the urinal multiple times. CBC on arrival is unremarkable. BMP showed a sodium 138, potassium 5.5, chloride 97, serum CO2 chronically elevated at 35, BUN 43, creatinine 1.64, glucose 88. Normal saline is infusing at 20 ML's per hour. Lactic acid level was 1.4. Troponin negative 1. ECG shows atrial fibrillation with controlled ventricular rate and no obvious ischemic changes. D-dimer was elevated, and he is unable to undergo chest CTA due to r enal function. Vital signs are stable at this time. Patient will be transferred to the cardiac stepdown unit once bed available. The patient is seen today in 11/16/2022 in follow-up on the selective care unit. He is currently sitting up at the bedside. Awake and alert in no acute distress. Denies any worsening shortness of breath, cough or congestion. Pulmonary perfusion test Velo an intermediate probability for pulmonary embolus. He is maintaining O2 saturations in the 90s on 2 L/m per nasal cannula. No worsening shortness of breath, cough or congestion. No hemoptysis. He has been seen and evaluated by infectious disease. Left lower extremity wound cultures are pending. Blood cultures are pending. Sodium 140. Potassium 4.7. Bicarb 36. BUN 30. Creatinine 1.56. Glucose 92. He is on antibiotics in the form of vancomycin. Remains on Symbicort, DuoNeb inhalations. Anticoagulated with Eliquis. Remains on IV diuretics. Currently in a negative balance. The patient is seen today 11/17/2022 in follow-up on the selective care unit. He is currently sitting up in bed. Awake and alert in no acute distress. He did wear his home CPAP last night. He is currently on 3 L nasal cannula with O2 saturations at 96%. Afebrile. Hemodynamically stable. Earlier this morning staff had trouble arousing him and felt he had altered mental status. Arterial blood gases on 28% FiO2 revealed a PaO2 of 60, pCO2 of 53 and a pH of 7.44. Computed tomography scan of the brain revealed no acute intracranial hemorrhage or midline shift. No significant change from previous CT of 03/2022. White count 5.9. Hemoglobin 14.9. Sodium 141. Potassium 4.3. Bicarb 35. BUN 25. Creatinine 1.49. Glucose 124. Urinalysis clean. He is continued on DuoNeb inhalations, Symbicort, antibiotics in the form of vancomycin and cefepime. Anticoagulated with Eliquis. Remains on IV diuretics. No accurate intake and output recorded. Gonzalez wraps to bilateral lower extremities. ID is following. The patient is seen today 11/18/2022 in follow-up on the selective care unit. He is awake and alert in no acute distress. Sitting up at the bedside. Denies any worsening shortness of breath, cough or congestion. He is continued on DuoNeb inhalations, Symbicort, antibiotics in the form of vancomycin and cefepime. Remains on IV diuretics. Anticoagulate with Eliquis. The patient is seen today 11/19/2022 in follow-up on the selective care unit. He is currently sitting up in a chair at the bedside. Awake and alert in no acute distress. Maintaining O2 saturations in the mid 90s on 3 L/m per nasal cannula. He does desaturate to 87% on room air. Left leg wound cultures positive for Serratia and MRSA. Blood cultures reveal no growth. Sodium 141. Potassium 4.1. Bicarb 38. BUN 24. Creatinine 1.3. Glucose 116. He remains on DuoNeb inhalations, Symbicort. Antibiotics in the form of vancomycin and cefepime. Continued on IV diuretics. Objective - Vital Signs Vital signs: Vital Signs Temp 97.9 F 11/19/22 08:00 Pulse 90 11/19/22 12:00 Resp 16 11/19/22 12:00 BP 137/71 11/19/22 12:00 Pulse Ox 87 L 11/19/22 12:00 FiO2 Intake & Output 11/18/22 11/19/22 11/19/22 18:59 06:59 18:59 Intake Total 2640 2174 480 Output Total 950 600 Balance 1690 1574 480 Weight 163.4 kg Intake: Intake, IV Titration 700 700 Amount Cefepime 2 gm In Sodium 200 200 Chloride 0.9% 100 ml @ 25 mls/hr IVPB Q8H OBI Rx#: [id number] Vancomycin 2,500 mg In 500 500 Sodium Chloride 0.9% 500 ml 500 ml @ 167 mls/hr IVPB Q16H OBI Rx#: [id number] Oral 1940 1474 480 Output: Urine 950 600 Other: # Voids 4 - Exam GENERAL EXAM: Alert, morbidly obese 57-year-old male, sitting up in a chair, on 3 L nasal cannula, comfortable in no apparent distress. HEAD: Normocephalic and atraumatic EYES: Normal reaction of pupils, equal size. NOSE: Clear with pink turbinates. THROAT: No erythema or exudates. NECK: No masses, no JVD. CHEST: No chest wall deformity. LUNGS: Equal air entry with no crackles, wheeze, rhonchi or dullness. Diminished. CVS: S1 and S2 normal with no audible murmur, irregular rhythm. No extra heart sounds ABDOMEN: Obese abdomen. No hepatosplenomegaly, active bowel sounds, no guarding or rigidity. SPINE: No scoliosis or deformity SKIN: Bilateral lower extremity erythema and weeping ulcerations. There is also an area of induration and erythema on the left upper extremity. CENTRAL NERVOUS SYSTEM: No focal deficits, tone is normal in all 4 extremities. EXTREMITIES: There is severe bilateral lower extremity edema. Gonzalez wraps applied. No clubbing, or cyanosis. Peripheral pulses are intact. - Labs CBC & Chem 7: 11/17/22 07:39 11/19/22 07:14 Labs: Abnormal Lab Results - Last 24 Hours (Table) 11/18/22 11/18/22 11/19/22 Range/Units 16:49 20:05 06:14 Chloride (98-107) mmol/L Carbon Dioxide (22-30) mmol/L BUN (9-20) mg/dL Creatinine (0.66-1.25) mg/dL Glucose (74-99) mg/dL POC Glucose (mg/dL) 119 H 150 H 119 H (70-110) mg/dL 11/19/22 11/19/22 Range/Units 07:14 11:44 Chloride 97 L (98-107) mmol/L Carbon Dioxide 38 H (22-30) mmol/L BUN 24 H (9-20) mg/dL Creatinine 1.38 H (0.66-1.25) mg/dL Glucose 116 H (74-99) mg/dL POC Glucose (mg/dL) 173 H (70-110) mg/dL Microbiology - Last 24 Hours (Table) 11/15/22 11:36 Anaerobic Culture - Final Leg - Left 11/14/22 16:00 Blood Culture - Preliminary Blood 11/14/22 16:15 Blood Culture - Preliminary Blood 11/15/22 11:36 Gram Stain - Final Leg - Left Wound Culture - Final Serratia species Methicillin resist S. aureus Assessment and Plan Assessment: Acute on chronic hypoxemic and hypercapnic respiratory failure, likely related to a mild exacerbation of patient's diastolic heart failure. Remains on IV diu retics. Currently on 3 L nasal cannula. Bilateral lower extremity cellulitis and the wound cultures reveal Serratia species, MRSA here currently on vancomycin and cefepime Left upper arm carbuncle Severe COPD with an FEV1 22% of predicted at baseline currently inactive and stable Atrial fibrillation with rapid ventricular rate, heart rate is better controlled, anticoagulated with Eliquis Obstructive sleep apnea managed with home CPAP machine Diastolic heart failure. Preserved LV function and ejection fraction of 50-55% Hypertension Hyperlipidemia Chronic kidney disease stage III Chronic lower extremity edema with previous history of infection including MRSA, Enterococcus faecalis, Pseudomonas, Acinetobacter on the left leg wound Ex-smoker, with 35-fnjg-unca history Plan: The patient was seen and evaluated Medications and labs reviewed Continued on DuoNeb inhalations, Symbicort Continued on vancomycin and cefepime Remains on IV diuretics Continue to use home CPAP at night and during the day while napping We will continue to follow I have personally seen and examined the patient, performed the documentation and the assessment and plan as written. Number of minutes spent on the visit: 10.
[2022-11-19 13:39] VITALS: BMI 48.8
[2022-11-19] MEDS: VANCOMYCIN 2,500 MG in SODIUM CHLORIDE 0.9% 500 ML 500 ML IVPB SCH (13:52)
[2022-11-19 16:40] LABS: Glucose,Whole Blood 167 mg/dL (70-110)
[2022-11-19 20:14] LABS: Glucose,Whole Blood 191 mg/dL (70-110)
[2022-11-19] MEDS: MELATONIN 5 MG TABLET PO SCH (21:06)
--- NOTE | 2022-11-19 22:46 | P.PN ---
Subjective Progress Note Date: 11/19/22 Principal diagnosis: Left leg wound and cellulitis Patient is a 57-year-old male with a past medical history significant for COPD atrial fibrillation hypertension hyperlipidemia has been sent to the ER from his PCP office for evaluation of increasing shortness of breath leg swelling redness especially involving the left leg. On today's evaluation that is 11/19/2022 patient remains to be afebrile patient is breathing comfortably on 3 L nasal cannula , the patient denies any chest pain no worsening cough or sputum production: The patient denies nausea vomiting no abdominal pain and the patient pain to lower extremity is currently controlled Objective - Vital Signs Vital signs: Vital Signs Temp 97.9 F 11/19/22 08:00 Pulse 90 11/19/22 12:00 Resp 16 11/19/22 12:00 BP 137/71 11/19/22 12:00 Pulse Ox 87 L 11/19/22 12:00 FiO2 Intake & Output 11/18/22 11/19/22 11/19/22 18:59 06:59 18:59 Intake Total 2640 2174 480 Output Total 950 600 Balance 1690 1574 480 Weight 163.4 kg Intake: Intake, IV Titration 700 700 Amount Cefepime 2 gm In Sodium 200 200 Chloride 0.9% 100 ml @ 25 mls/hr IVPB Q8H OBI Rx#: [id number] Vancomycin 2,500 mg In 500 500 Sodium Chloride 0.9% 500 ml 500 ml @ 167 mls/hr IVPB Q16H OBI Rx#: [id number] Oral 1940 1474 480 Output: Urine 950 600 Other: # Voids 4 - Exam GENERAL DESCRIPTION: Middle-age male up in bed in no distress RESPIRATORY SYSTEM: Unlabored breathing , decreased breath sounds at bases HEART: S1 S2 regular rate and rhythm , ABDOMEN: Soft , no tenderness EXTREMITIES: Legs are currently No drainage on the dressing - Labs CBC & Chem 7: 11/17/22 07:39 11/19/22 07:14 Labs: Abnormal Lab Results - Last 24 Hours (Table) 11/18/22 11/18/22 11/19/22 Range/Units 16:49 20:05 06:14 Chloride (98-107) mmol/L Carbon Dioxide (22-30) mmol/L BUN (9-20) mg/dL Creatinine (0.66-1.25) mg/dL Glucose (74-99) mg/dL POC Glucose (mg/dL) 119 H 150 H 119 H (70-110) mg/dL 11/19/22 11/19/22 Range/Units 07:14 11:44 Chloride 97 L (98-107) mmol/L Carbon Dioxide 38 H (22-30) mmol/L BUN 24 H (9-20) mg/dL Creatinine 1.38 H (0.66-1.25) mg/dL Glucose 116 H (74-99) mg/dL POC Glucose (mg/dL) 173 H (70-110) mg/dL Microbiology - Last 24 Hours (Table) 11/15/22 11:36 Anaerobic Culture - Final Leg - Left 11/14/22 16:00 Blood Culture - Preliminary Blood 11/14/22 16:15 Blood Culture - Preliminary Blood 11/15/22 11:36 Gram Stain - Final Leg - Left Wound Culture - Final Serratia species Methicillin resist S. aureus Assessment and Plan (1) Left leg cellulitis Current Visit: Yes Status: Acute Code(s): L03.116 - CELLULITIS OF LEFT LOWER LIMB SNOMED Code(s): 952519605 Plan: 1patient was in the hospital increasing shortness of breath also have evidence of increasing swelling redness to the left leg present superficial ulceration from ruptured blister concerning for cellulitis, likely from her gram-positive skin alesia for the patient being in neuro the hospital will need to cover for resistant gram-positive such as MRSA. 2local wound care to the left lower extremity wound with Aquacel silver dres sing to the open wound followed by Gonzalez wrap from just about the total below the knee 3Patient local cultures currently growing present MRSA and Serratia marcescens 4- the patient to continue with vancomycin and cefepime, however the patient will be able to finish therapy with oral Cipro and doxycycline 10 days on discharge Time with Patient: Less than 30
[2022-11-20] MEDS: CEFEPIME 2 GM in SODIUM CHLORIDE 0.9% 100 ML IVPB SCH ×2 (03:48→11:51)
[2022-11-20] MEDS: HYDROcodone/APAP 5-325MG 1 EACH TAB PO PRN ×2 (03:49→11:49)
[2022-11-20] MEDS ORDERED: VANCOMYCIN TROUGH DUE 1 EACH MISC MISCELLANE ONE (05:00)
[2022-11-20 06:06] LABS: Glucose,Whole Blood 126 mg/dL (70-110)
[2022-11-20 06:22] LABS: Anisocytosis Slight; Basophils # (A) 0.1 k/uL (0-0.2); Basophils % (A) 1 %; Eosinophils # (A) 0.2 k/uL (0-0.7); Eosinophils % (A) 3 %; HCT 44.3 % (39.0-53.0); HGB 13.9 gm/dL (13.0-17.5); Hypochromasia Moderate; Lymphocytes # (A) 0.8 k/uL (1.0-4.8); Lymphocytes % (A) 13 %; MCH 27.9 pg (25.0-35.0); MCHC 31.4 g/dL (31.0-37.0); Mean Platelet Volume 7.4; Monocytes # (A) 0.4 k/uL (0-1.0); Monocytes % (A) 7 %; Neutrophils # (A) 4.5 k/uL (1.3-7.7); Neutrophils % (A) 73 %; Platelet Count 247 k/uL (150-450); Poikilocytosis Slight; RBC 4.97 m/uL (4.30-5.90); RDW 16.1 % (11.5-15.5); WBC 6.1 k/uL (3.8-10.6)
[2022-11-20] MEDS: INSULIN DETEMIR (LEVEMIR) 100 UNIT/ML SYR SQ SCH (06:23)
[2022-11-20] MEDS: INSULIN ASPART (NovoLOG) 100 UNIT/ML VIAL SQ SCH ×4 (06:24→11:50)
[2022-11-20 06:42] LABS: Calcium 8.6 mg/dL (8.4-10.2); Potassium 4.7 mmol/L (3.5-5.1)
--- NOTE | 2022-11-20 07:22 | PN ---
PROGRESS NOTE DATE OF SERVICE: 11/19/2022 SUBJECTIVE: This is a 57-year-old gentleman, who was admitted with significant cellulitis of the left leg with MRSA, also had respiratory difficulties. The patient also had CHF. The patient is on 3 L oxygen. No chest pain. No palpitation. OBJECTIVE: VITAL SIGNS: Pulse is 90, blood pressure 137/70, respirations 16. CHEST: Bilateral scattered rhonchi and crackles. ABDOMEN: Soft, obese. LEGS: Significant left leg cellulitis. LABORATORY DATA: Reviewed. ASSESSMENT: 1. Acute left leg cellulitis with Methicillin-resistant Staphylococcus aureus. 2. Shortness of breath with congestive heart failure acute exacerbation with acute diastolic dysfunction. 3. Chronic atrial fibrillation. 4. History of chronic obstructive pulmonary disease, asthma. 5. Renal failure. 6. Acute hypoxic respiratory failure. 7. Change in mental status, multifactorial. 8. Multiple medical issues. RECOMMENDATIONS AND DISCUSSION: Recommend to continue current management and continue symptomatic treatment. Continue with antibiotics. Continue with bronchodilators and rest of medications. Closely follow with Pulmonary, Infectious Disease. Also recommend possible midline and outpatient antibiotic. PICC line is not available currently apparently, so we will continue to monitor. Prognosis guarded. Further recommendations to follow. MMODL / IJN: [id number] /
[2022-11-20] MEDS: IPRATROPIUM-ALBUTEROL 3 ML NEB INHALATION SCH ×3 (08:10→15:15)
[2022-11-20] MEDS: SYMBICORT 160-4.5 MCG INHALER INHALATION SCH (08:10)
[2022-11-20 08:26] VITALS: RESP 20
[2022-11-20] MEDS: VANCOMYCIN 2,500 MG in SODIUM CHLORIDE 0.9% 500 ML 500 ML IVPB SCH (08:43)
[2022-11-20] MEDS: PREGABALIN 100 MG CAP PO SCH (08:44)
[2022-11-20] MEDS: FUROSEMIDE 10 MG/ML 4 ML VIAL IV SCH (08:44)
[2022-11-20] MEDS: METOPROLOL SUCCINATE (ER) 50 MG TAB.ER.24H PO SCH (08:45)
[2022-11-20] MEDS: busPIRone HCl 5 MG TAB PO SCH (08:45)
[2022-11-20] MEDS: APIXABAN 5 MG TAB PO SCH (08:45)
[2022-11-20] MEDS: DILTIAZEM CD 240 MG CAP.ER.24H PO SCH (08:45)
[2022-11-20] MEDS: FAMOTIDINE 20 MG TAB PO SCH (08:45)
[2022-11-20] MEDS: DAPAGLIFLOZIN PROPANEDIOL 10 MG TABLET PO SCH (08:45)
[2022-11-20] MEDS: ATORVASTATIN 10 MG TAB PO SCH (08:45)
--- NOTE | 2022-11-20 11:26 | P.PN ---
Subjective Progress Note Date: 11/20/22 I am seeing this patient in new consultation today 10/17/2022 in the emergency room for a likely mild CHF exacerbation and cellulitis. Patient is a 57-year-old white male with past medical history of atrial fibrillation, congestive heart failure, severe COPD with an FEV1 22% of predicted, oxygen dependent on 2 L nasal cannula at home, obstructive sleep apnea with home VPAP machine, hyperlipidemia, hypertension, obesity, chronic kidney disease stage III, lower extremity edema and cellulitis. Patient does follow with Dr. Gregory for management of his COPD and obstructive sleep apnea, and was sent o lazarus from the office yesterday for progressive shortness of breath, worsening lower extremity swelling, and erythema. Patient's symptoms have progressively worsened since his recent hospital discharge last month. He reports shortness of breath on exertion and when lying flat. He also reports an associated 30 pound weight gain over last couple days. Bilateral lower extremities are severely edematous and weeping. There are multiple open sores and his legs are more erythematous than baseline according to the patient. His legs are very tender to palpation. He also has a left upper extremity area of erythema and induration concerning for cellulitis. Patient is currently sitting up in bed, on 4 L nasal cannula, in no acute distress. Chest x-ray on arrival showed cardiomegaly and mild pulmonary vascular congestion. NT proBNP was elevated at 3640. He was given one dose of Lasix 40 mg in the emergency room, and he has reportedly used the urinal multiple times. CBC on arrival is unremarkable. BMP showed a sodium 138, potassium 5.5, chloride 97, serum CO2 chronically elevated at 35, BUN 43, creatinine 1.64, glucose 88. Normal saline is infusing at 20 ML's per hour. Lactic acid level was 1.4. Troponin negative 1. ECG shows atrial fibrillation with controlled ventricular rate and no obvious ischemic changes. D-dimer was elevated, and he is unable to undergo chest CTA due to r enal function. Vital signs are stable at this time. Patient will be transferred to the cardiac stepdown unit once bed available. The patient is seen today in 11/16/2022 in follow-up on the selective care unit. He is currently sitting up at the bedside. Awake and alert in no acute distress. Denies any worsening shortness of breath, cough or congestion. Pulmonary perfusion test Velo an intermediate probability for pulmonary embolus. He is maintaining O2 saturations in the 90s on 2 L/m per nasal cannula. No worsening shortness of breath, cough or congestion. No hemoptysis. He has been seen and evaluated by infectious disease. Left lower extremity wound cultures are pending. Blood cultures are pending. Sodium 140. Potassium 4.7. Bicarb 36. BUN 30. Creatinine 1.56. Glucose 92. He is on antibiotics in the form of vancomycin. Remains on Symbicort, DuoNeb inhalations. Anticoagulated with Eliquis. Remains on IV diuretics. Currently in a negative balance. The patient is seen today 11/17/2022 in follow-up on the selective care unit. He is currently sitting up in bed. Awake and alert in no acute distress. He did wear his home CPAP last night. He is currently on 3 L nasal cannula with O2 saturations at 96%. Afebrile. Hemodynamically stable. Earlier this morning staff had trouble arousing him and felt he had altered mental status. Arterial blood gases on 28% FiO2 revealed a PaO2 of 60, pCO2 of 53 and a pH of 7.44. Computed tomography scan of the brain revealed no acute intracranial hemorrhage or midline shift. No significant change from previous CT of 03/2022. White count 5.9. Hemoglobin 14.9. Sodium 141. Potassium 4.3. Bicarb 35. BUN 25. Creatinine 1.49. Glucose 124. Urinalysis clean. He is continued on DuoNeb inhalations, Symbicort, antibiotics in the form of vancomycin and cefepime. Anticoagulated with Eliquis. Remains on IV diuretics. No accurate intake and output recorded. Gonzalez wraps to bilateral lower extremities. ID is following. The patient is seen today 11/18/2022 in follow-up on the selective care unit. He is awake and alert in no acute distress. Sitting up at the bedside. Denies any worsening shortness of breath, cough or congestion. He is continued on DuoNeb inhalations, Symbicort, antibiotics in the form of vancomycin and cefepime. Remains on IV diuretics. Anticoagulate with Eliquis. The patient is seen today 11/19/2022 in follow-up on the selective care unit. He is currently sitting up in a chair at the bedside. Awake and alert in no acute distress. Maintaining O2 saturations in the mid 90s on 3 L/m per nasal cannula. He does desaturate to 87% on room air. Left leg wound cultures positive for Serratia and MRSA. Blood cultures reveal no growth. Sodium 141. Potassium 4.1. Bicarb 38. BUN 24. Creatinine 1.3. Glucose 116. He remains on DuoNeb inhalations, Symbicort. Antibiotics in the form of vancomycin and cefepime. Continued on IV diuretics. The patient is seen today 11/20/2022 in follow-up on the selective care unit. He is awake and alert in no acute distress. Sitting up at the bedside. Maintaining O2 saturations in the 90s on 3 L/m per nasal cannula. He is continued on vancomycin and cefepime. The plan is for midline placement. He remains on DuoNeb inhalations, Symbicort, anticoagulate with Eliquis. He count 6.1. Hemoglobin 13.9. Platelets 247. Sodium 141. Potassium 4.7. Bicarb 36. BUN 29. Creatinine 1.37. Vancomycin trough 20.5. Objective - Vital Signs Vital signs: Vital Signs Temp 97.5 F L 11/20/22 08:00 Pulse 80 11/20/22 11:14 Resp 20 11/20/22 08:00 BP 118/70 11/20/22 08:00 Pulse Ox 92 L 11/20/22 08:00 FiO2 Intake & Output 11/19/22 11/20/22 11/20/22 18:59 06:59 18:59 Intake Total 1080 1100 180 Balance 1080 1100 180 Weight 163.4 kg 164.2 kg Intake: Intake, IV Titration 600 100 Amount Cefepime 2 gm In Sodium 100 100 Chloride 0.9% 100 ml @ 25 mls/hr IVPB Q8H OBI Rx#: [id number] Vancomycin 2,500 mg In 500 Sodium Chloride 0.9% 500 ml 500 ml @ 167 mls/hr IVPB Q16H OBI Rx#: [id number] Oral 480 1000 180 Other: # Voids 2 2 - Exam GENERAL EXAM: Alert, morbidly obese 57-year-old male, on 3 L nasal cannula, comfortable in no apparent distress. HEAD: Normocephalic and atraumatic EYES: Normal reaction of pupils, equal size. NOSE: Clear with pink turbinates. THROAT: No erythema or exudates. NECK: No masses, no JVD. CHEST: No chest wall deformity. LUNGS: Equal air entry with no crackles, wheeze, rhonchi or dullness. Diminished. CVS: S1 and S2 normal with no audible murmur, irregular rhythm. No extra heart sounds ABDOMEN: Obese abdomen. No hepatosplenomegaly, active bowel sounds, no guarding or rigidity. SPINE: No scoliosis or deformity SKIN: Bilateral lower extremity erythema. There is also an area of induration and erythema on the left upper extremity. CENTRAL NERVOUS SYSTEM: No focal deficits, tone is normal in all 4 extremities. EXTREMITIES: There is severe bilateral lower extremity edema. Gonzalez wraps applied. No clubbing, or cyanosis. Peripheral pulses are intact. - Labs CBC & Chem 7: 11/20/22 06:00 11/20/22 06:00 Labs: Abnormal Lab Results - Last 24 Hours (Table) 11/19/22 11/19/22 11/19/22 Range/Units 11:44 16:38 20:13 RDW (11.5-15.5) % Lymphocytes # (1.0-4.8) k/uL Carbon Dioxide (22-30) mmol/L BUN (9-20) mg/dL Creatinine (0.66-1.25) mg/dL Glucose (74-99) mg/dL POC Glucose (mg/dL) 173 H 167 H 191 H (70-110) mg/dL 11/20/22 11/20/22 11/20/22 Range/Units 06:00 06:00 06:05 RDW 16.1 H (11.5-15.5) % Lymphocytes # 0.8 L (1.0-4.8) k/uL Carbon Dioxide 36 H (22-30) mmol/L BUN 29 H (9-20) mg/dL Creatinine 1.37 H (0.66-1.25) mg/dL Glucose 127 H (74-99) mg/dL POC Glucose (mg/dL) 126 H (70-110) mg/dL Microbiology - Last 24 Hours (Table) 11/14/22 16:00 Blood Culture - Final Blood 11/14/22 16:15 Blood Culture - Final Blood 11/15/22 11:36 Anaerobic Culture - Final Leg - Left Assessment and Plan Assessment: Acute on chronic hypoxemic and hypercapnic respiratory failure, likely related to a mild exacerbation of patient's diastolic heart failure. Remains on IV diuretics. Currently on 3 L nasal cannula. Bilateral lower extremity cellulitis and the wound cultures reveal Serratia species, MRSA here currently on vancomycin and cefepime Left upper arm carbuncle Severe COPD with an FEV1 22% of predicted at baseline currently inactive and stable Atrial fibrillation with rapid ventricular rate, heart rate is better controlled, anticoagulated with Eliquis Obstructive sleep apnea managed with home CPAP machine Diastolic heart failure. Preserved LV function and ejection fraction of 50-55% Hypertension Hyperlipidemia Chronic kidney disease stage III Chronic lower extremity edema with previous history of infection including MRSA, Enterococcus faecalis, Pseudomonas, Acinetobacter on the left leg wound Ex-smoker, with [id number] history Plan: The patient was seen and evaluated Medications and labs reviewed Continue the current treatment plan Home once cleared by medicine, antibiotics per ID service I have personally seen and examined the patient, performed the documentation and the assessment and plan as written. Number of minutes spent on the visit: 10.
[2022-11-20 11:31] LABS: Glucose,Whole Blood 271 mg/dL (70-110)
--- NOTE | 2022-11-20 11:48 | P.PN ---
Subjective Progress Note Date: 11/20/22 Principal diagnosis: Left leg wound and cellulitis Patient is a 57-year-old male with a past medical history significant for COPD atrial fibrillation hypertension hyperlipidemia has been sent to the ER from his PCP office for evaluation of increasing shortness of breath leg swelling redness especially involving the left leg. On today's evaluation that is 11/20/2022, the patient continues to be afebrile patient is breathing comfortably on 3 L nasal cannula , the patient denies any chest pain no worsening cough or sputum production, the patient denies having any nausea no vomiting no abdominal pain and pain to the left lower extremity has decreased in intensity Objective - Vital Signs Vital signs: Vital Signs Temp 97.5 F L 11/20/22 08:00 Pulse 84 11/20/22 08:24 Resp 20 11/20/22 08:00 BP 118/70 11/20/22 08:00 Pulse Ox 92 L 11/20/22 08:00 FiO2 Intake & Output 11/19/22 11/20/22 11/20/22 18:59 06:59 18:59 Intake Total 1080 1100 180 Balance 1080 1100 180 Weight 163.4 kg 164.2 kg Intake: Intake, IV Titration 600 100 Amount Cefepime 2 gm In Sodium 100 100 Chloride 0.9% 100 ml @ 25 mls/hr IVPB Q8H OBI Rx#: [id number] Vancomycin 2,500 mg In 500 Sodium Chloride 0.9% 500 ml 500 ml @ 167 mls/hr IVPB Q16H OBI Rx#: [id number] Oral 480 1000 180 Other: # Voids 2 2 - Exam GENERAL DESCRIPTION: Middle-age male up in bed in no distress RESPIRATORY SYSTEM: Unlabored breathing , decreased breath sounds at bases HEART: S1 S2 regular rate and rhythm , ABDOMEN: Soft , no tenderness EXTREMITIES: Bilateral lower extremity swelling redness has decreased no drainage on the dressing - Labs CBC & Chem 7: 11/20/22 06:00 11/20/22 06:00 Labs: Abnormal Lab Results - Last 24 Hours (Table) 11/19/22 11/19/22 11/19/22 Range/Units 11:44 16:38 20:13 RDW (11.5-15.5) % Lymphocytes # (1.0-4.8) k/uL Carbon Dioxide (22-30) mmol/L BUN (9-20) mg/dL Creatinine (0.66-1.25) mg/dL Glucose (74-99) mg/dL POC Glucose (mg/dL) 173 H 167 H 191 H (70-110) mg/dL 11/20/22 11/20/22 11/20/22 Range/Units 06:00 06:00 06:05 RDW 16.1 H (11.5-15.5) % Lymphocytes # 0.8 L (1.0-4.8) k/uL Carbon Dioxide 36 H (22-30) mmol/L BUN 29 H (9-20) mg/dL Creatinine 1.37 H (0.66-1.25) mg/dL Glucose 127 H (74-99) mg/dL POC Glucose (mg/dL) 126 H (70-110) mg/dL Microbiology - Last 24 Hours (Table) 11/14/22 16:00 Blood Culture - Final Blood 11/14/22 16:15 Blood Culture - Final Blood 11/15/22 11:36 Anaerobic Culture - Final Leg - Left Assessment and Plan (1) Left leg cellulitis Current Visit: Yes Status: Acute Code(s): L03.116 - CELLULITIS OF LEFT LOWER LIMB SNOMED Code(s): 808024087 Plan: 1patient was in the hospital increasing shortness of breath also have evidence of increasing swelling redness to the left leg present superficial ulceration from ruptured blister concerning for cellulitis, likely from her gram-positive skin alesia for the patient being in neuro the hospital will need to cover for resistant gram-positive such as MRSA. 2local wound care to the left lower extremity wound with Aquacel silver dressing to the open wound followed by Gonzalez wrap from just about the total below the knee 3Patient local cultures currently growing present MRSA and Serratia marcescens 4- the patient seemed to have shown clinical improvement with vancomycin and cefepime, the patient will be able to finish therapy with oral Cipro and doxycycline 10 days on discharge, prescription sent to the pharmacy discussed with the admitting physician Time with Patient: Less than 30
[2022-11-20 12:11] VITALS: BP 113/72; PULSE 75; TEMP 97.8
--- NOTE | 2022-11-20 13:55 | P.PN ---
Subjective Progress Note Date: 11/20/22 History of Present Illness: The patient is a 57-year-old male patient of Dr. Dickerson with a history of chr onic obstructive lung disease, prior history of smoking, history of atrial fibrillation on eliquis. patient presented to the hospital due to shortness of breath. He was at Dr. Gregory's office and was sent directly to the hospital. He has complaints of weight gain of 30 pounds, orthopnea and dyspnea on exertion. Patient was seen in the emergency center had started on IV Lasix 40 mg every 12 hours. Patient states he has been urinating well since Fay started on this. He is currently on CPAP. He has pulmonary medicine, infectious disease on consult as well as general surgery. We have been consulted regarding atrial fibrillation with RVR. His heart rate is running in the 136 to 140s. He has been resumed on eliquis. EKG A. fib with controlled ventricular rate of 94 on admission, telemetry atrial fibrillation 140s WBC 5.9, hemoglobin 14.1, platelet count 294. Sodium 141, potassium 4.3, chloride 96, CO2 35, BUN 25 creatinine 1.49. Troponin negative 1. ProBNP 3640. Lactic acid 1.4. Hemoglobin A1c 6.8. Chest x-ray reveals cardiomegaly with mild pulmonary vascular congestion. CAT scan of the brain no acute findings VQ scan intermediate probability for pulmonary embolism. Home cardiac medications: Eliquis 5 mg twice daily, atorvastatin 10 mg daily, Cardizem XR 120 mg daily, Lasix 40 mg daily, losartan 25 mg at bedtime, Toprol- XL 100 mg daily, Aldactone 25 mg daily, Farxiga 10 mg daily. 11/18 Patient is seen today in follow-up on the cardiac stepdown unit. Yesterday we had increased Toprol to 150 mg daily and IV Lasix at 40 mg every 12 hours. He remains in atrial fibrillation with heart rate of 110-120. Blood pressure 131/82. 11/19 Patient is seen in follow-up. Yesterday we increase Cardizem to 240 mg for heart rate control, continued IV Lasix. Patient states he has somewhat improved shortness of breath. He continues to have lower extremity edema. Gonzalez wrap in place to the left leg. Heart rate is running in the 90s, blood pressure 105/81, pulse ox 95% on 3 L nasal cannula. Repeat blood work reveals BUN 24 creatinine 1.38. 11/20 Patient is seen today in follow-up. He states his shortness of breath is at his baseline. His been continued on Lasix 40 mg IV every 12 hours. Plan is for discharge home today which patient is in agreement. He states his breathing is stable enough for him to go home. Heart rate has been in the 70s and 80s, blood pressure 113/72, telemetry is atrial fibrillation. Repeat blood work reveals potassium 4.7, BUN 29 creatinine 1.37. Physical Examination: 57-year-old male, alert and oriented morbidly obese, Head: Normocephalic. Eyes: Sclerae nonicteric. Neck: Good carotid upstroke, no bruit, no jugular venous distention. Lungs: Decreased air exchange bilaterally Heart: Irregular rate and rhythm, S1-S2, no S3, no rub. No murmur. Abdomen: Soft nontender, positive bowel sounds no organomegaly. Extremities: Trace edema bilaterally. Impression: Acute on chronic hypoxic and hypercapnic respiratory failure Acute on chronic diastolic heart failure A. fib with RVR Chronic persistent atrial fibrillation Morbid obesity with BMI of 48 Obstructive sleep apnea History of hypertension History of chronic kidney disease Hyperlipidemia Cellulitis left lower extremity, possible abscess left elbow Plan: Continue patient's current cardiac medications and continue to monitor heart rate and blood pressure Continue Lasix 40 mg IV every 12 hours, transition to oral at discharge, monitor I&O, daily weights, I's renal function Patient may follow-up with Dr. Dickerson in 1-2 weeks. Nurse practitioner note has been reviewed, I agree with the documented findings and plan of care. Patient was seen and examined. Objective - Vital Signs Vital signs: Vital Signs Temp 97.5 F L 11/20/22 08:00 Pulse 80 11/20/22 11:24 Resp 20 11/20/22 08:00 BP 118/70 11/20/22 08:00 Pulse Ox 92 L 11/20/22 08:00 FiO2 Intake & Output 11/19/22 11/20/22 11/20/22 18:59 06:59 18:59 Intake Total 1080 1100 180 Balance 1080 1100 180 Weight 163.4 kg 164.2 kg Intake: Intake, IV Titration 600 100 Amount Cefepime 2 gm In Sodium 100 100 Chloride 0.9% 100 ml @ 25 mls/hr IVPB Q8H OBI Rx#: [id number] Vancomycin 2,500 mg In 500 Sodium Chloride 0.9% 500 ml 500 ml @ 167 mls/hr IVPB Q16H OBI Rx#: [id number] Oral 480 1000 180 Other: # Voids 2 2 - Labs CBC & Chem 7: 11/20/22 06:00 11/20/22 06:00 Labs: Abnormal Lab Results - Last 24 Hours (Table) 11/19/22 11/19/22 11/20/22 Range/Units 16:38 20:13 06:00 RDW 16.1 H (11.5-15.5) % Lymphocytes # 0.8 L (1.0-4.8) k/uL Carbon Dioxide (22-30) mmol/L BUN (9-20) mg/dL Creatinine (0.66-1.25) mg/dL Glucose (74-99) mg/dL POC Glucose (mg/dL) 167 H 191 H (70-110) mg/dL 11/20/22 11/20/22 11/20/22 Range/Units 06:00 06:05 11:29 RDW (11.5-15.5) % Lymphocytes # (1.0-4.8) k/uL Carbon Dioxide 36 H (22-30) mmol/L BUN 29 H (9-20) mg/dL Creatinine 1.37 H (0.66-1.25) mg/dL Glucose 127 H (74-99) mg/dL POC Glucose (mg/dL) 126 H 271 H (70-110) mg/dL Microbiology - Last 24 Hours (Table) 11/14/22 16:00 Blood Culture - Final Blood 11/14/22 16:15 Blood Culture - Final Blood 11/15/22 11:36 Anaerobic Culture - Final Leg - Left
--- NOTE | 2022-11-20 15:09 | P.PN ---
Subjective Progress Note Date: 11/20/22 CHIEF COMPLAINT: Bilateral lower extremity cellulitis HISTORY OF PRESENT ILLNESS: Surgical service following regards to patient's left elbow with question of abscess. The abscess had drained spontaneously. Patient has no pain. Denies any further drainage. Afebrile. wbc 6.1. Patient scheduled for mid line placement today PHYSICAL EXAM: VITAL SIGNS: Reviewed. GENERAL: Well-developed in no acute distress. HEENT: No sclera icterus. Extraocular movements grossly intact. Moist buccal mucosa. Head is atraumatic, normocephalic. ABDOMEN: Soft. Nondistended. Nontender. NEUROLOGIC: Alert and oriented. Cranial nerves II through XII grossly intact. Extremities left elbow medial aspect minimal induration. No evidence of cellulitis. No drainage. Nontender. ASSESSMENT: 1. Left elbow abscess drained spontaneously PLAN: -Continue antibiotics per infectious disease -No surgical intervention planned -Keep area clean and dry Physician Research Anthropologist note has been reviewed by physician. Signing provider agrees with the documented findings, assessment, and plan of care. Objective - Vital Signs Vital signs: Vital Signs Temp 97.8 F 11/20/22 12:00 Pulse 75 11/20/22 12:00 Resp 20 11/20/22 12:00 BP 113/72 11/20/22 12:00 Pulse Ox 93 L 11/20/22 12:00 FiO2 Intake & Output 11/19/22 11/20/22 11/20/22 18:59 06:59 18:59 Intake Total 1080 1100 360 Balance 1080 1100 360 Weight 163.4 kg 164.2 kg Intake: Intake, IV Titration 600 100 Amount Cefepime 2 gm In Sodium 100 100 Chloride 0.9% 100 ml @ 25 mls/hr IVPB Q8H OBI Rx#: [id number] Vancomycin 2,500 mg In 500 Sodium Chloride 0.9% 500 ml 500 ml @ 167 mls/hr IVPB Q16H OBI Rx#: [id number] Oral 480 1000 360 Other: # Voids 2 2 - Labs CBC & Chem 7: 11/20/22 06:00 11/20/22 06:00 Labs: Abnormal Lab Results - Last 24 Hours (Table) 11/19/22 11/19/22 11/20/22 Range/Units 16:38 20:13 06:00 RDW 16.1 H (11.5-15.5) % Lymphocytes # 0.8 L (1.0-4.8) k/uL Carbon Dioxide (22-30) mmol/L BUN (9-20) mg/dL Creatinine (0.66-1.25) mg/dL Glucose (74-99) mg/dL POC Glucose (mg/dL) 167 H 191 H (70-110) mg/dL 11/20/22 11/20/22 11/20/22 Range/Units 06:00 06:05 11:29 RDW (11.5-15.5) % Lymphocytes # (1.0-4.8) k/uL Carbon Dioxide 36 H (22-30) mmol/L BUN 29 H (9-20) mg/dL Creatinine 1.37 H (0.66-1.25) mg/dL Glucose 127 H (74-99) mg/dL POC Glucose (mg/dL) 126 H 271 H (70-110) mg/dL Microbiology - Last 24 Hours (Table) 11/14/22 16:00 Blood Culture - Final Blood 11/14/22 16:15 Blood Culture - Final Blood
--- NOTE | 2022-11-21 00:35 | DS ---
DISCHARGE SUMMARY FINAL DIAGNOSES: 1. Acute left leg cellulitis with MRSA. 2. Shortness of breath with CHF acute exacerbation with acute diastolic dysfunction. 3. Chronic atrial fibrillation. 4. History of COPD, asthma. 5. Renal failure. 6. Multiple medical problems. DISCHARGE DISPOSITION: The patient will be discharged in stable condition and guarded prognosis. HISTORY OF PRESENT ILLNESS: This is a 57-year-old gentleman with past medical history of multiple medical problems, was admitted with cellulitis and COPD, treated symptomatically, improved significantly. Culture showed MRSA. Infection Disease saw the patient. PHYSICAL EXAMINATION: VITAL SIGNS: Stable. CARDIOVASCULAR: S1, S2. ABDOMEN: Soft. DISCHARGE MEDICATIONS: Patient will be discharged with doxycycline and DuoNeb and Cipro, rest of medications please resume the home medications. Please refer to the discharge reconciliation sheet for list of medications and follow Dr. Galeana, Dr. Levin as recommended. MMODL / IJN: [id number] /
[2022-11-21] MEDS ORDERED: VANCOMYCIN 2,250 MG in SODIUM CHLORIDE 0.9% 500 ML 500 ML IVPB SCH (01:00)
--- NOTE | 2022-11-22 13:31 | CDI ---
Documentation Clarification Form Date: 11/22/2022 1:10:55 PM From: Yumiko Galo Admit Date: 11/14/2022 8:25:00 PM Patient Name: Meir Abraham Visit Number: [id number] Discharge Date: 11/20/2022 4:21:00 PM ATTENTION: The Clinical Documentation Specialists (CDI) and [facility] Coding Staff appreciate your assistance in clarifying documentation. Please respond to the clarification below the line at the bottom and electronically sign. The CDI & [facility] Coding staff will review the response and follow-up if needed. Please note: Queries are made part of the Legal Health Record. If you have any questions, please contact the author of this message via ITS. Dr. Rashaad Peres Patient has MRSA bilateral LE cellulitis is documented throughout the chart and patient is noted to have Type II diabetes also documented throughout the rené]. Please clarify if there is a relationship between the cellulitis and Type II diabetes. History/Risk Factors: Cellulitis MRSA bilateral LE's and Type II diabetes Clinical Indicators: Treatment: Vancomycin, Cefepime, Bacitracin ointment, Insulin Please clarify the relationship, if any, which is clinically appropriate for this patient: [ ] Bilateral LE cellulitis related to Type II diabetes [ ] Bilateral LE cellulitis not related to Type II diabetes [ ] Other explanation of clinical findings (please specify) [ ] Unable to determine (no explanation for clinical findings) Bilateral LE cellulitis not related to Type II diabetes MTDD
== END 2022-11-20 16:21 | disposition home or self-care (01) | DRG 720 ==
LOC: EC 12:53 → 3SCARD 20:25
PROVIDERS: ADMIT Hospitalist; ATTEND Hospitalist
PROC: 05HF33Z Insertion of Infusion Device into Left Cephalic Vein, Percutaneous Approach (ICD-10-PCS; principal; 2022-11-20 07:30)
DX: A41.9 Sepsis, unspecified organism (principal); L03.115 Cellulitis of right lower limb; L03.116 Cellulitis of left lower limb; J96.22 Acute and chronic respiratory failure with hypercapnia; L02.414 Cutaneous abscess of left upper limb; G93.41 Metabolic encephalopathy; L02.93 Carbuncle, unspecified; L03.114 Cellulitis of left upper limb; N18.30 Chronic kidney disease, stage 3 unspecified; N17.9 Acute kidney failure, unspecified; Z68.42 Body mass index [BMI] 45.0-49.9, adult; J96.21 Acute and chronic respiratory failure with hypoxia; B95.62 Methicillin resistant Staphylococcus aureus infection as the cause of diseases classified elsewhere; E66.01 Morbid (severe) obesity due to excess calories; E78.5 Hyperlipidemia, unspecified; E87.29 Other acidosis; F32.A Depression, unspecified; G47.33 Obstructive sleep apnea (adult) (pediatric); I13.0 Hypertensive heart and chronic kidney disease with heart failure and stage 1 through stage 4 chronic kidney disease, or unspecified chronic kidney disease; R79.1 Abnormal coagulation profile; I48.19 Other persistent atrial fibrillation; I50.33 Acute on chronic diastolic (congestive) heart failure; Z99.81 Dependence on supplemental oxygen; J44.1 Chronic obstructive pulmonary disease with (acute) exacerbation; Z79.01 Long term (current) use of anticoagulants; I87.8 Other specified disorders of veins; Z79.4 Long term (current) use of insulin; Z79.51 Long term (current) use of inhaled steroids; Z79.84 Long term (current) use of oral hypoglycemic drugs; Z79.899 Other long term (current) drug therapy; Z86.14 Personal history of Methicillin resistant Staphylococcus aureus infection; Z87.891 Personal history of nicotine dependence; Z71.3 Dietary counseling and surveillance; Z60.2 Problems related to living alone
CPT/HCPCS: 36410; 36415; 36600; 70450; 71046; 76937; 78582; 80048; 80053; 80202; 81003; 82565; 82803; 82805; 83036; 83605; 83735; 83880; 84484; 85025; 85379; 85610; 85730; 87040; 87070; 87075; 87077; 87186; 87205; 93005; 94640; 94760; 96365; 96366; 96375; 99285

== ENCOUNTER 2023-01-07 12:59 | Inpatient (IN) | payer OTHER ==
[2023-01-07 14:12] LABS: Basophils % (A) 0 %; Eosinophils # (A) 0.1 k/uL (0-0.7); Eosinophils % (A) 1 %; HGB 14.1 gm/dL (13.0-17.5); Lymphocytes # (A) 0.6 k/uL (1.0-4.8); Lymphocytes % (A) 8 %; MCH 27.3 pg (25.0-35.0); MCV 85.1 fL (80.0-100.0); Mean Platelet Volume 8.8; Monocytes # (A) 0.6 k/uL (0-1.0); Monocytes % (A) 8 %; Neutrophils # (A) 6.5 k/uL (1.3-7.7); Neutrophils % (A) 81 %; Platelet Count 242 k/uL (150-450); RBC 5.17 m/uL (4.30-5.90); RDW 15.6 % (11.5-15.5)
--- NOTE | 2023-01-07 14:17 | XR ---
EXAMINATION TYPE: XR chest 2V DATE OF EXAM: 01/07/2023 COMPARISON: 11/14/2022 HISTORY: Shortness of breath TECHNIQUE: Frontal and lateral views of the chest are obtained. FINDINGS: Scattered senescent parenchymal changes noted. Hyperinflation compatible with COPD. No evidence for infiltrate. No evidence for atelectasis. Heart size is stable. Mediastinal structures are stable and grossly unremarkable. No evidence for hilar prominence. Degenerative changes dorsal spine. IMPRESSION: 1. No evidence for acute pulmonary disease.
[2023-01-07 14:20] LABS: Partial Thromboplastin Time 28.9 sec (22.0-30.0); Prothrombin Time 10.7 sec (9.0-12.0)
[2023-01-07 14:24] LABS: ALT 17 U/L (4-49); AST 28 U/L (17-59); African American GFR (CKD) 70 (>60 ml/min/1.73 sqM); Albumin 3.8 g/dL (3.5-5.0); Alkaline Phosphatase 97 U/L (38-126); Anion Gap 10 mmol/L; Blood Urea Nitrogen 40 mg/dL (9-20); Calcium 8.8 mg/dL (8.4-10.2); Carbon Dioxide 33 mmol/L (22-30); Chloride 94 mmol/L (98-107); Glucose 134 mg/dL (74-99); Non-African American GFR(CKD) 60 (>60 ml/min/1.73 sqM); Potassium 4.8 mmol/L (3.5-5.1); Sodium 137 mmol/L (137-145)
--- NOTE | 2023-01-07 14:27 | XR ---
EXAMINATION TYPE: XR knee complete LT DATE OF EXAM: 01/07/2023 CLINICAL HISTORY: pain TECHNIQUE: Three views of the left knee are obtained. COMPARISON: None. FINDINGS: There is no acute fracture/dislocation. The tri-compartment joint spaces appear within no rmal limits. Moderate suprapatellar joint effusion noted. IMPRESSION: There is no acute fracture or dislocation ICD 10 NO FRACTURE, INITIAL EVALUATION
--- NOTE | 2023-01-07 14:34 | ED ---
Extremity Problem HPI - General Chief complaint: Extremity Problem,Nontraumatic Stated complaint: pain & edema bilateral legs Time Seen by Provider: 01/07/23 13:10 Source: patient Mode of arrival: EMS - History of Present Illness Initial comments: 57-year-old male with morbid obesity, A. fib, COPD on 2 L home O2 presents to the emergency department stating that he is unable to ambulate. He reports to left knee pain with effusion which has been getting worse to the point where he can't take care of himself. He continues to take all of his medications as directed however requires the assistance of his mom to help him. He denies any injuries to the leg. Does have history of chronic venous stasis however his wounds have completely healed at this time. Denies any redness or swelling. No fevers. No history of DVT. He does take anticoagulation for his history of A. fib and denies any missed doses. No other alleviating, precipitating or modifying factors - Related Data Home Medications Medication Instructions Recorded Confirmed Losartan [Cozaar] 25 mg PO HS 07/09/22 01/07/23 hydrOXYzine pamoate 50 mg PO HS PRN 07/09/22 01/07/23 Atorvastatin [Lipitor] 10 mg PO DAILY 08/01/22 01/07/23 Budesonide-Formot 160-4.5 Mcg 2 puff INHALATION RT-BID 08/01/22 01/07/23 [Symbicort 160-4.5 Mcg Inhaler] INSULIN ASPART (NovoLOG) [NovoLOG See Protocol SQ ACHS PRN 09/04/22 01/07/23 (formulary)] Largo-3/Dha/Epa/Fish Oil [Fish Oil 1 cap PO DAILY 11/14/22 01/07/23 1,000 mg Softgel] Spironolactone [Aldactone] 25 mg PO W/LUNCH 11/14/22 01/07/23 Ubidecarenone [Coenzyme Q10] 200 mg PO DAILY 11/14/22 01/07/23 Ipratropium-Albuterol Nebulize 3 ml INHALATION RT-QID PRN 01/07/23 01/07/23 [Duoneb 0.5 mg-3 mg/3 ml Soln] Previous Rx's Medication Instructions Recorded Apixaban [Eliquis] 5 mg PO BID #60 tab 05/13/21 Dapagliflozin Propanediol [Farxiga] 10 mg PO DAILY 30 Days #30 tab 09/10/22 Famotidine [Pepcid] 20 mg PO BID #60 tab 09/10/22 Melatonin 5 mg PO HS tab 09/10/22 Metoprolol Succinate (ER) [Toprol 100 mg PO DAILY 30 Days #30 tab 09/10/22 XL] busPIRone HCl [Buspar] 5 mg PO TID 30 Days #90 tab 09/10/22 dilTIAZem HCL [dilTIAZem HCL 24Hr 120 mg PO DAILY #0 09/10/22 ER (Xr)] Acetaminophen Tab [Tylenol] 650 mg PO Q4HR PRN tab 10/24/22 Furosemide [Lasix] 40 mg PO DAILY #30 tablet 10/24/22 Cephalexin [Keflex] 500 mg PO Q8HR 7 Days #21 cap 01/11/23 Colchicine [Colcrys] 0.6 mg PO BID 7 Days #14 each 01/11/23 Insulin Detemir (Levemir) [Levemir] 15 unit SQ BID #5 each 01/11/23 Ipratropium-Albuterol Nebulize 3 ml INHALATION RT-QID #100 each 01/11/23 [Duoneb 0.5 mg-3 mg/3 ml Soln] Pregabalin [Lyrica] 100 mg PO TID #3 cap 01/11/23 predniSONE 10 mg PO DIRECTED #30 tab 01/11/23 traMADol HCl [Ultram] 50 mg PO Q6H PRN #4 tab 01/11/23 Allergies Allergy/AdvReac Type Severity Reaction Status Date / Time No Known Allergies Allergy Verified 01/07/23 16:58 Review of Systems ROS Statement: Those systems with pertinent positive or pertinent negative responses have been documented in the HPI. ROS Other: All systems not noted in ROS Statement are negative. 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 History of Any Multi-Drug Resistant Organisms: MRSA Date of last positivie culture/infection: 11/15/22 MDRO Source:: Left Leg Past Surgical History: Hernia Repair, Joint Replacement, Orthopedic Surgery Additional Past Surgical History / Comment(s): RT ARMAND, rt foot SX, Past Anesthesia/Blood Transfusion Reactions: No Reported Reaction Past Psychological History: Depression Smoking Status: Former smoker Past Alcohol Use History: None Reported Past Drug Use History: None Reported - Past Family History Mother Family Medical History: No Reported History General Exam General appearance: alert, in no apparent distress Head exam: Present: atraumatic, normocephalic, normal inspection Eye exam: Present: normal appearance, PERRL, EOMI. Absent: scleral icterus, conjunctival injection, periorbital swelling ENT exam: Present: normal exam, mucous membranes moist Neck exam: Present: normal inspection. Absent: tenderness, meningismus, lymphadenopathy Respiratory exam: Present: normal lung sounds bilaterally. Absent: respiratory distress, wheezes, rales, rhonchi, stridor Cardiovascular Exam: Present: regular rate, normal rhythm, normal heart sounds. Absent: systolic murmur, diastolic murmur, rubs, gallop, clicks GI/Abdominal exam: Present: soft, normal bowel sounds. Absent: distended, tenderness, guarding, rebound, rigid Extremities exam: Present: normal inspection, full ROM, normal capillary refill, pedal edema (left > right). Absent: tenderness, joint swelling, calf tenderness Back exam: Present: normal inspection Neurological exam: Present: alert, oriented X3, CN II-XII intact Psychiatric exam: Present: normal affect, normal mood Skin exam: Present: warm, dry, intact, normal color. Absent: rash Course Vital Signs 01/07/23 01/07/23 01/07/23 13:06 15:24 16:00 Temperature 98.2 F Pulse Rate 101 H 98 95 Pulse Rate [ Left Pulse Oximetery] Respiratory 18 20 20 Rate Blood Pressure 109/72 111/69 133/86 Blood Pressure [Right Arm] O2 Sat by Pulse 95 94 L 96 Oximetry 01/08/23 01/08/23 01/08/23 01:58 02:00 02:08 Temperature 97.7 F Pulse Rate 102 H 98 Pulse Rate [ 108 H Left Pulse Oximetery] Respiratory 16 Rate Blood Pressure Blood Pressure 131/64 [Right Arm] O2 Sat by Pulse 93 L Oximetry 01/08/23 06:27 Temperature 98.3 F Pulse Rate 106 H Pulse Rate [ Left Pulse Oximetery] Respiratory 16 Rate Blood Pressure 137/72 Blood Pressure [Right Arm] O2 Sat by Pulse 94 L Oximetry Medical Decision Making - Medical Decision Making Was pt. sent in by a medical professional or institution (, [facility], [employer], urgent care, hospital, or custodial...) When possible be specific @ -No Did you speak to anyone other than the patient for history (EMS, parent, family, police, friend...)? What history was obtained from this source @ -No Did you review nursing and triage notes (agree or disagree)? Why? @ -I reviewed and agree with nursing and triage notes Were old charts reviewed (outside hosp., previous admission, EMS record, old EKG, old radiological studies, urgent care reports/EKG's, custodial records)? Report findings @ -No old charts were reviewed Differential Diagnosis (chest pain, altered mental status, abdominal pain women, abdominal pain men, vaginal bleeding, weakness, fever, dyspnea, syncope, headache, dizziness, GI bleed, back pain, seizure, CVA, palpatations, mental health, musculoskeletal)? @ -Differential Weakness: Hypoglycemia, shock, sepsis, hyponatremia, anemia, infection, UT, ETOH, adverse medicine reaction, overdose, stroke, this is not meant to be an all-inclusive list. EKG interpreted by me (3pts min.). @ -yes and demonstrates A. fib with a rate of 98. QRS 135. QTC 450. Respiratory bundle branch block. No acute ST segment elevation X-rays interpreted by me (1pt min.). @ -yes and demonstrates no acute process CT interpreted by me (1pt min.). @ -None done U/S interpreted by me (1pt. min.). @ -None done What testing was considered but not performed or refused? (CT, X-rays, U/S, labs)? Why? @ -None What meds were considered but not given or refused? Why? @ -None Did you discuss the management of the patient with other professionals (professionals i.e. [facility] Fung, [employer], lab, RT, psych nurse, social work therapist, tannery gummer, teacher, commanding officer homicide squad, director case)? Give summary @ -Spoke with Dr. Peres Was smoking cessation discussed for >3mins.? @ -No Was critical care preformed (if so, how long)? @ -No Were there social determinants of health that impacted care today? How? (Homelessness, low income, unemployed, alcoholism, drug addiction, transportation, low edu. Level, literacy, decrease access to med. care, senior care, rehab)? @ -No Was there de-escalation of care discussed even if they declined (Discuss DNR or withdrawal of care, Hospice)? DNR status @ -No What co-morbidities impacted this encounter? (DM, HTN, Smoking, COPD, CAD, Cancer, CVA, ARF, Chemo, Hep., AIDS, mental health diagnosis, sleep apnea, morbid obesity)? @ -Obesity, CHF, recurrent cellulitis Was patient admitted / discharged? Hospital course, mention meds given and route, prescriptions, significant lab abnormalities, going to OR and other pertinent info. @ -Upon arrival patient was placed into room 27. Thorough history and physical exam was performed. Laboratory studies are conducted and reviewed. BNP is elevated at 2080. I did complete an x-ray of the patient's left knee due to swelling. X-ray does not demonstrate any acute fractures. Results are discussed the patient. Due to his inability to ambulate I did recommend admission for PT and OT consultation. Patient was agreeable to this. Spoke with Dr. Peres who will admit the patient. He is currently pending a bed on the floor in stable condition. Undiagnosed new problem with uncertain prognosis? @ -Yes Drug Therapy requiring intensive monitoring for toxicity (Heparin, Nitro, Insulin, Cardizem)? @ -No Were any procedures done? @ -No Diagnosis/symptom? @ -Inability to ambulate, peripheral edema, CHF exacerbation Acute, or Chronic, or Acute on Chronic? @ -Acute on chronic Uncomplicated (without systemic symptoms) or Complicated (systemic symptoms)? @ -Complicated Side effects of treatment? @ -No Exacerbation, Progression, or Severe Exacerbation? @ -Yes Poses a threat to life or bodily function? How? (Chest pain, USA, UT, pneumonia, PE, COPD, DKA, ARF, appy, cholecystitis, CVA, Diverticulitis, Homicidal, Suicidal, threat to staff... and all critical care pts) @ -No - Lab Data Result diagrams: 01/10/23 06:15 01/11/23 06:06 Lab Results 01/07/23 01/07/23 01/07/23 Range/Units 14:01 14:01 14:01 WBC 8.0 (3.8-10.6) k/uL RBC 5.17 (4.30-5.90) m/uL Hgb 14.1 (13.0-17.5) gm/dL Hct 44.0 (39.0-53.0) % MCV 85.1 (80.0-100.0) fL MCH 27.3 (25.0-35.0) pg MCHC 32.0 (31.0-37.0) g/dL RDW 15.6 H (11.5-15.5) % Plt Count 242 (150-450) k/uL MPV 8.8 Immature Gran % (Auto) % Absolute Nucleated RBC % Neutrophils % 81 % Lymphocytes % 8 % Monocytes % 8 % Eosinophils % 1 % Basophils % 0 % Immature Gran # X 10*3/uL Neutrophils # 6.5 (1.3-7.7) k/uL Lymphocytes # 0.6 L (1.0-4.8) k/uL Monocytes # 0.6 (0-1.0) k/uL Eosinophils # 0.1 (0-0.7) k/uL Basophils # 0.0 (0-0.2) k/uL NRBC/100 WBC Diff (0.00-0.01) X 10*3/uL PT 10.7 (9.0-12.0) sec INR 1.0 (<1.2) APTT 28.9 (22.0-30.0) sec Sodium 137 (137-145) mmol/L Potassium 4.8 (3.5-5.1) mmol/L Chloride 94 L (98-107) mmol/L Carbon Dioxide 33 H (22-30) mmol/L Anion Gap 10 mmol/L BUN 40 H (9-20) mg/dL Creatinine 1.29 H (0.66-1.25) mg/dL Est GFR (CKD-EPI)AfAm 70 (>60 ml/min/1.73 sqM) Est GFR (CKD-EPI)NonAf 60 (>60 ml/min/1.73 sqM) Glucose 134 H (74-99) mg/dL POC Glucose (mg/dL) (70-110) mg/dL POC Glu Assessment Nurse Practitioner ID Estimated Ave Glu mg/dL mg/dL Hemoglobin A1c (<=6.0) % Plasma Lactic Acid Ankur (0.7-2.0) mmol/L Calcium 8.8 (8.4-10.2) mg/dL Total Bilirubin 1.0 (0.2-1.3) mg/dL AST 28 (17-59) U/L ALT 17 (4-49) U/L Alkaline Phosphatase 97 (38-126) U/L Troponin I (0.000-0.034) ng/mL NT-Pro-B Natriuret Pep pg/mL Total Protein 7.0 (6.3-8.2) g/dL Albumin 3.8 (3.5-5.0) g/dL TSH 1.110 (0.465-4.680) mIU/L 01/07/23 01/07/23 01/07/23 Range/Units 14:01 14:01 14:01 WBC (3.8-10.6) k/uL RBC (4.30-5.90) m/uL Hgb (13.0-17.5) gm/dL Hct (39.0-53.0) % MCV (80.0-100.0) fL MCH (25.0-35.0) pg MCHC (31.0-37.0) g/dL RDW (11.5-15.5) % Plt Count (150-450) k/uL MPV Immature Gran % (Auto) % Absolute Nucleated RBC % Neutrophils % % Lymphocytes % % Monocytes % % Eosinophils % % Basophils % % Immature Gran # X 10*3/uL Neutrophils # (1.3-7.7) k/uL Lymphocytes # (1.0-4.8) k/uL Monocytes # (0-1.0) k/uL Eosinophils # (0-0.7) k/uL Basophils # (0-0.2) k/uL NRBC/100 WBC Diff (0.00-0.01) X 10*3/uL PT (9.0-12.0) sec INR (<1.2) APTT (22.0-30.0) sec Sodium (137-145) mmol/L Potassium (3.5-5.1) mmol/L Chloride (98-107) mmol/L Carbon Dioxide (22-30) mmol/L Anion Gap mmol/L BUN (9-20) mg/dL Creatinine (0.66-1.25) mg/dL Est GFR (CKD-EPI)AfAm (>60 ml/min/1.73 sqM) Est GFR (CKD-EPI)NonAf (>60 ml/min/1.73 sqM) Glucose (74-99) mg/dL POC Glucose (mg/dL) (70-110) mg/dL POC Glu Assessment Nurse Practitioner ID Estimated Ave Glu mg/dL mg/dL Hemoglobin A1c (<=6.0) % Plasma Lactic Acid Ankur 1.2 (0.7-2.0) mmol/L Calcium (8.4-10.2) mg/dL Total Bilirubin (0.2-1.3) mg/dL AST (17-59) U/L ALT (4-49) U/L Alkaline Phosphatase (38-126) U/L Troponin I <0.012 (0.000-0.034) ng/mL NT-Pro-B Natriuret Pep 2080 pg/mL Total Protein (6.3-8.2) g/dL Albumin (3.5-5.0) g/dL TSH (0.465-4.680) mIU/L 01/07/23 01/08/23 01/08/23 Range/Units 21:33 07:48 07:48 WBC 10.67 H (3.8-10.6) k/uL RBC 4.55 (4.30-5.90) m/uL Hgb 13.2 (13.0-17.5) gm/dL Hct 39.8 (39.0-53.0) % MCV 87.5 (80.0-100.0) fL MCH 29.0 (25.0-35.0) pg MCHC 33.2 (31.0-37.0) g/dL RDW 15.3 H (11.5-15.5) % Plt Count 302 (150-450) k/uL MPV 10.9 Immature Gran % (Auto) 0.30 % Absolute Nucleated RBC 0 % Neutrophils % 78.1 % Lymphocytes % 10.1 % Monocytes % 9.6 % Eosinophils % 1.6 % Basophils % 0.3 % Immature Gran # 0.03 X 10*3/uL Neutrophils # 8.34 H (1.3-7.7) k/uL Lymphocytes # 1.08 (1.0-4.8) k/uL Monocytes # 1.02 H (0-1.0) k/uL Eosinophils # 0.17 (0-0.7) k/uL Basophils # 0.03 (0-0.2) k/uL NRBC/100 WBC Diff 0 (0.00-0.01) X 10*3/uL PT (9.0-12.0) sec INR (<1.2) APTT (22.0-30.0) sec Sodium (137-145) mmol/L Potassium (3.5-5.1) mmol/L Chloride (98-107) mmol/L Carbon Dioxide (22-30) mmol/L Anion Gap mmol/L BUN (9-20) mg/dL Creatinine (0.66-1.25) mg/dL Est GFR (CKD-EPI)AfAm (>60 ml/min/1.73 sqM) Est GFR (CKD-EPI)NonAf (>60 ml/min/1.73 sqM) Glucose (74-99) mg/dL POC Glucose (mg/dL) 123 H (70-110) mg/dL POC Glu Assessment Nurse Practitioner ID Cordelia Heaton Estimated Ave Glu mg/dL 137 mg/dL Hemoglobin A1c 6.4 H (<=6.0) % Plasma Lactic Acid Ankur (0.7-2.0) mmol/L Calcium (8.4-10.2) mg/dL Total Bilirubin (0.2-1.3) mg/dL AST (17-59) U/L ALT (4-49) U/L Alkaline Phosphatase (38-126) U/L Troponin I (0.000-0.034) ng/mL NT-Pro-B Natriuret Pep pg/mL Total Protein (6.3-8.2) g/dL Albumin (3.5-5.0) g/dL TSH (0.465-4.680) mIU/L 01/08/23 01/08/23 Range/Units 07:48 11:17 WBC (3.8-10.6) k/uL RBC (4.30-5.90) m/uL Hgb (13.0-17.5) gm/dL Hct (39.0-53.0) % MCV (80.0-100.0) fL MCH (25.0-35.0) pg MCHC (31.0-37.0) g/dL RDW (11.5-15.5) % Plt Count (150-450) k/uL MPV Immature Gran % (Auto) % Absolute Nucleated RBC % Neutrophils % % Lymphocytes % % Monocytes % % Eosinophils % % Basophils % % Immature Gran # X 10*3/uL Neutrophils # (1.3-7.7) k/uL Lymphocytes # (1.0-4.8) k/uL Monocytes # (0-1.0) k/uL Eosinophils # (0-0.7) k/uL Basophils # (0-0.2) k/uL NRBC/100 WBC Diff (0.00-0.01) X 10*3/uL PT (9.0-12.0) sec INR (<1.2) APTT (22.0-30.0) sec Sodium 136 L (137-145) mmol/L Potassium 4.5 (3.5-5.1) mmol/L Chloride 96 L (98-107) mmol/L Carbon Dioxide 32 H (22-30) mmol/L Anion Gap 8 mmol/L BUN 37 H (9-20) mg/dL Creatinine 1.31 H (0.66-1.25) mg/dL Est GFR (CKD-EPI)AfAm 69 (>60 ml/min/1.73 sqM) Est GFR (CKD-EPI)NonAf 59 (>60 ml/min/1.73 sqM) Glucose 138 H (74-99) mg/dL POC Glucose (mg/dL) 167 H (70-110) mg/dL POC Glu Assessment Nurse Practitioner ID Wendie Morejon Estimated Ave Glu mg/dL mg/dL Hemoglobin A1c (<=6.0) % Plasma Lactic Acid Ankur (0.7-2.0) mmol/L Calcium 8.4 (8.4-10.2) mg/dL Total Bilirubin (0.2-1.3) mg/dL AST (17-59) U/L ALT (4-49) U/L Alkaline Phosphatase (38-126) U/L Troponin I (0.000-0.034) ng/mL NT-Pro-B Natriuret Pep pg/mL Total Protein (6.3-8.2) g/dL Albumin (3.5-5.0) g/dL TSH (0.465-4.680) mIU/L Disposition Clinical Impression: Unable to ambulate, Left knee pain, Venous stasis Disposition: ADMITTED IP TO THIS [facility] Condition: Stable Is patient prescribed a controlled substance at d/c from ED?: No Time of Disposition: 16:17 Decision to Admit Reason: Admit from EC Decision Date: 01/07/23 Decision Time: 16:17
[2023-01-07] MEDS ORDERED: MORPHINE SULFATE 4 MG/ML SYRINGE IVP STA (16:14)
[2023-01-07] MEDS ORDERED: NALOXONE 0.4 MG/ML 1 ML VIAL IV PRN (16:17)
[2023-01-07] MEDS: MORPHINE SULFATE 4 MG/ML SYRINGE IV PRN (20:36)
[2023-01-07] MEDS ORDERED: ACETAMINOPHEN TAB 325 MG TAB PO PRN (20:37)
[2023-01-07] MEDS ORDERED: hydrOXYzine pamoate 25 MG CAP PO PRN (20:37)
[2023-01-07] MEDS ORDERED: DEXTROSE 50% SYRINGE 50 ML IVP PRN ×2 (20:38)
[2023-01-07 21:34] LABS: Glucose,Whole Blood 123 mg/dL (70-110)
[2023-01-07] MEDS: PREGABALIN 100 MG CAP PO SCH (21:34)
[2023-01-07] MEDS: FAMOTIDINE 20 MG TAB PO SCH (21:34)
[2023-01-07] MEDS: INSULIN ASPART (NovoLOG) 100 UNIT/ML VIAL SQ SCH (21:35)
[2023-01-07] MEDS: LOSARTAN 25 MG TAB PO SCH (21:35)
[2023-01-07] MEDS: busPIRone HCl 5 MG TAB PO SCH (21:35)
[2023-01-07] MEDS: MELATONIN 5 MG TABLET PO SCH (21:35)
[2023-01-07] MEDS: APIXABAN 5 MG TAB PO SCH (21:35)
--- NOTE | 2023-01-07 22:45 | HP ---
HISTORY AND PHYSICAL CHIEF COMPLAINTS: Bilateral leg swelling and pain. HISTORY OF PRESENT ILLNESS: This is a 57-year-old gentleman with a past medical history of multiple medical problems including CHF, history of atrial fibrillation, COPD, was complaining of increasing pain and swelling in the bilateral legs and as well as some pain and the patient is unable to ambulate. The patient has significant weakness. The patient has shortness of breath also. The patient was admitted previously with left leg MRSA. There is no history of any fever, rigors, or chills. PAST MEDICAL HISTORY: Reviewed includes COPD, CHF. Rest of the history and rest of the chart is also reviewed. HOME MEDICATIONS: Reviewed include Ultram. Doses and rest of medications noted. ALLERGIES: None. FAMILY HISTORY: No history of heart disease or strokes in the family. SOCIAL HISTORY: Previous history of smoking. REVIEW OF SYSTEMS: Fourteen-point review is negative except as mentioned earlier. PHYSICAL EXAMINATION: VITAL SIGNS: Pulse is 98, blood pressure 111/69, respirations 20. HEENT: Conjunctivae normal. NECK: No jugular venous distention. CARDIOVASCULAR: S1, S2 muffled. RESPIRATIONS: A few scattered rhonchi. ABDOMEN: Soft, obese. LEGS: Bilateral leg edema. NERVOUS SYSTEM: As mentioned earlier, mild diffuse weakness, especially proximal muscle weakness also present. SKIN: No ulcer, rash, or bleeding. JOINTS: No active deforming arthropathy. LABORATORY DATA: Reviewed. Chest x-ray and knee x-rays reviewed personally. ASSESSMENT: 1. Acute on chronic diastolic dysfunction. 2. Bilateral leg edema, possibly congestive heart failure acute exacerbation. 3. Possible chronic obstructive pulmonary disease acute exacerbation, cor pulmonale. 4. Gait dysfunction and weakness. 5. History of asthma. 6. History of hypertension. 7. History of hyperlipidemia. 8. History of sleep apnea. RECOMMENDATIONS AND DISCUSSION: Recommend to continue current medications, continue symptomatic treatment. Continue the Lasix, bronchodilators. PT, OT evaluation, possible ECF rehab. Prognosis guarded. Resume the home medications once they are confirmed. Prognosis guarded because of multiple complex medical issues. Further recommendations to follow. MMODL / IJN: [id number] /
[2023-01-08] MEDS: MORPHINE SULFATE 4 MG/ML SYRINGE IV PRN ×5 (00:56→19:46)
[2023-01-08] MEDS: SYMBICORT 160-4.5 MCG INHALER INHALATION SCH ×3 (01:52→20:15)
[2023-01-08] MEDS: IPRATROPIUM-ALBUTEROL 3 ML NEB INHALATION PRN ×2 (01:56→08:43)
[2023-01-08 08:37] LABS: African American GFR (CKD) 69 (>60 ml/min/1.73 sqM); Anion Gap 8 mmol/L; Blood Urea Nitrogen 37 mg/dL (9-20); Calcium 8.4 mg/dL (8.4-10.2); Carbon Dioxide 32 mmol/L (22-30); Chloride 96 mmol/L (98-107); Glucose 138 mg/dL (74-99); Non-African American GFR(CKD) 59 (>60 ml/min/1.73 sqM); Potassium 4.5 mmol/L (3.5-5.1); Sodium 136 mmol/L (137-145)
[2023-01-08] MEDS ORDERED: FUROSEMIDE 40 MG TAB PO SCH (09:00)
[2023-01-08] MEDS: INSULIN ASPART (NovoLOG) 100 UNIT/ML VIAL SQ SCH ×4 (09:28→20:40)
[2023-01-08] MEDS: APIXABAN 5 MG TAB PO SCH ×2 (09:40→20:39)
[2023-01-08] MEDS: DILTIAZEM CD 120 MG CAP.ER.24H PO SCH (09:40)
[2023-01-08] MEDS: ATORVASTATIN 10 MG TAB PO SCH (09:40)
[2023-01-08] MEDS: PREGABALIN 100 MG CAP PO SCH ×3 (09:40→22:29)
[2023-01-08] MEDS: busPIRone HCl 5 MG TAB PO SCH ×3 (09:40→22:29)
[2023-01-08] MEDS: METOPROLOL SUCCINATE (ER) 100 MG TAB.ER.24H PO SCH (09:40)
[2023-01-08] MEDS: FAMOTIDINE 20 MG TAB PO SCH ×2 (09:40→20:39)
[2023-01-08] MEDS: DAPAGLIFLOZIN PROPANEDIOL 10 MG TABLET PO SCH (09:40)
[2023-01-08] MEDS: NON FORMULARY DRUG (Ubidecarenone [Coenzyme Q10] 200 MG Capsule) PO SCH (11:00)
[2023-01-08 11:19] LABS: Glucose,Whole Blood 167 mg/dL (70-110)
[2023-01-08 11:35] LABS: Basophils # (A) 0.03 X 10*3/uL (0.00-0.10); Basophils % (A) 0.3 %; Eosinophils # (A) 0.17 X 10*3/uL (0.04-0.35); Eosinophils % (A) 1.6 %; HCT 39.8 % (39.6-50.0); HGB 13.2 d/dL (12.0-15.0); Lymphocytes # (A) 1.08 X 10*3/uL (0.90-5.00); Lymphocytes % (A) 10.1 %; MCHC 33.2 d/dL (32.0-37.0); MCV 87.5 FL (80.0-97.0); Mean Platelet Volume 10.9 FL (9.5-12.2); Monocytes # (A) 1.02 X 10*3/uL (0.20-1.00); Monocytes % (A) 9.6 %; NRBC Per 100 WBC 0 X 10*3/uL (0.00-0.01); Neutrophils # (A) 8.34 X 10*3/uL (1.80-7.70); Neutrophils % (A) 78.1 %; Platelet Count 302 X 10*3/uL (140-440); RBC 4.55 X 10*6/uL (4.40-5.60); RDW 15.3 % (11.5-14.5); WBC 10.67 X 10*3/uL (4.50-10.00)
[2023-01-08] MEDS: SPIRONOLACTONE 25 MG TAB PO SCH (12:02)
--- NOTE | 2023-01-08 13:45 | PN ---
PROGRESS NOTE DATE OF SERVICE: 01/08/2023 SUBJECTIVE: This 57-year-old gentleman admitted with CHF, also had some complaint of leg pain and swelling also. No chest pain, no palpitations, no fever. OBJECTIVE: VITAL SIGNS: Pulse is 83, blood pressure 137/76, pulse 16. CHEST: Few scattered rhonchi. CARDIOVASCULAR: S1, S2. ABDOMEN: Soft, obese. LEGS: Bilateral leg edema. LABORATORY DATA: Noted. ASSESSMENT: 1. Acute on chronic CHF with acute diastolic dysfunction. 2. Bilateral leg edema, possibly CHF acute exacerbation. 3. Possible COPD, acute exacerbation and cor pulmonale. 4. Gait dysfunction, weakness. 5. Bilateral leg pain. 6. History of asthma. 7. Multiple medical issues. RECOMMENDATIONS AND DISCUSSION: Recommend to continue current medications, continue symptomatic treatment, continue with symptomatic treatment. Intravenous Lasix. The patient will require more than 2 nights stay for evaluation and treatment of multiple complex medical issues. Cardiology consultation. MMALVIN / MARTINN: [id number] /
[2023-01-08] MEDS: FUROSEMIDE 10 MG/ML 4 ML VIAL IV SCH ×2 (14:57→20:39)
[2023-01-08 17:00] LABS: Glucose,Whole Blood 121 mg/dL (70-110)
[2023-01-08] MEDS: traMADol 50 MG TAB PO PRN (18:15)
[2023-01-08 20:17] LABS: Glucose,Whole Blood 185 mg/dL (70-110)
[2023-01-08] MEDS: LOSARTAN 25 MG TAB PO SCH (20:39)
[2023-01-08] MEDS: MELATONIN 5 MG TABLET PO SCH (22:31)
[2023-01-09] MEDS: traMADol 50 MG TAB PO PRN ×3 (01:32→21:20)
[2023-01-09] MEDS: MORPHINE SULFATE 4 MG/ML SYRINGE IV PRN ×4 (01:33→20:29)
[2023-01-09 07:28] LABS: Glucose,Whole Blood 139 mg/dL (70-110)
[2023-01-09] MEDS: INSULIN ASPART (NovoLOG) 100 UNIT/ML VIAL SQ SCH ×4 (07:30→21:13)
[2023-01-09] MEDS: APIXABAN 5 MG TAB PO SCH ×2 (08:53→21:12)
[2023-01-09] MEDS: busPIRone HCl 5 MG TAB PO SCH ×3 (08:53→21:12)
[2023-01-09] MEDS: FUROSEMIDE 10 MG/ML 4 ML VIAL IV SCH ×2 (08:54→21:12)
[2023-01-09] MEDS: ATORVASTATIN 10 MG TAB PO SCH (08:54)
[2023-01-09] MEDS: FAMOTIDINE 20 MG TAB PO SCH ×2 (08:54→21:12)
[2023-01-09] MEDS: PREGABALIN 100 MG CAP PO SCH ×3 (08:54→21:12)
[2023-01-09] MEDS: SYMBICORT 160-4.5 MCG INHALER INHALATION SCH ×2 (08:55→20:03)
[2023-01-09] MEDS: DAPAGLIFLOZIN PROPANEDIOL 10 MG TABLET PO SCH (08:56)
[2023-01-09] MEDS: IPRATROPIUM-ALBUTEROL 3 ML NEB INHALATION PRN (08:56)
[2023-01-09] MEDS: DILTIAZEM CD 120 MG CAP.ER.24H PO SCH (08:57)
[2023-01-09] MEDS: METOPROLOL SUCCINATE (ER) 100 MG TAB.ER.24H PO SCH (08:57)
[2023-01-09] MEDS: NON FORMULARY DRUG (Ubidecarenone [Coenzyme Q10] 200 MG Capsule) PO SCH (10:18)
--- NOTE | 2023-01-09 11:12 | PN ---
PROGRESS NOTE DATE OF SERVICE: 01/09/2023 SUBJECTIVE: This 57-year-old gentleman admitted with CHF acute exacerbation, also complains of bilateral leg pain and leg swelling also. for possible ECF rehab. PAST MEDICAL HISTORY: Reviewed. REVIEW OF SYSTEMS: 14-point review is negative as mentioned. MEDICATIONS: Reviewed, include Lasix, dose and rest of medication noted. PHYSICAL EXAMINATION: VITAL SIGNS: Pulse is 98, blood pressure 150/80, respirations 16. HEENT: Conjunctivae normal. NECK: No jugular venous distention. CARDIOVASCULAR: S1, S2. RESPIRATORY: Few scattered rhonchi. ABDOMEN: Soft, obese. LEGS: Bilateral leg edema, swelling and tenderness also present. NERVOUS SYSTEM: Bilateral leg weakness. LABORATORY DATA: Reviewed. ASSESSMENT: 1. Acute on chronic congestive heart failure with acute on chronic diastolic dysfunction. 2. Bilateral leg edema, possibly congestive heart failure acute exacerbation. 3. Possible chronic obstructive pulmonary disease, acute exacerbation of cor pulmonale. 4. Gait dysfunction and weakness. 5. Bilateral leg pain. 6. History of asthma. 7. Multiple medical issues. RECOMMENDATIONS: Recommend to continue current medications, continue symptomatic treatment. Recommend pelvis x-ray to rule out the possibility of any fractures. Otherwise, recommend Cardiology consultation, PT/OT evaluation, possible ECF rehab. Continue the pain medication. Continue the diuretics. Prognosis is guarded. uric acid also. See orders for details. MMODL / IJN: [id number] / MTDD
[2023-01-09 11:29] LABS: Basophils % (A) 0 %; Eosinophils # (A) 0.2 k/uL (0-0.7); Eosinophils % (A) 2 %; HCT 44.4 % (39.0-53.0); HGB 14.5 gm/dL (13.0-17.5); Lymphocytes # (A) 0.7 k/uL (1.0-4.8); Lymphocytes % (A) 10 %; MCH 27.1 pg (25.0-35.0); MCHC 32.6 g/dL (31.0-37.0); MCV 83.2 fL (80.0-100.0); Mean Platelet Volume 8.4; Monocytes # (A) 0.4 k/uL (0-1.0); Monocytes % (A) 5 %; Neutrophils # (A) 5.8 k/uL (1.3-7.7); Neutrophils % (A) 80 %; Platelet Count 295 k/uL (150-450); RBC 5.34 m/uL (4.30-5.90); RDW 15.5 % (11.5-15.5); WBC 7.3 k/uL (3.8-10.6)
[2023-01-09 11:57] LABS: Glucose,Whole Blood 191 mg/dL (70-110)
--- NOTE | 2023-01-09 12:12 | XR ---
EXAMINATION TYPE: XR Hip Bilateral and AP pelvis DATE OF EXAM: 01/09/2023 11:18 AM INDICATION: Patient age:Male; 57 years old; Reason for study: hip pain, weakness, inability to ambulate; COMPARISON: None. TECHNIQUE: The bilateral hips were examined in the frontal and lateral projections and a AP pelvis. FINDINGS: Post right arthroplasty changes, hardware is intact, alignment is appropriate. No evidence of fracture. Surgical anchors noted in the right gluteal region. No evidence of any acute osseous pat hology or joint dislocation. Left hip demonstrates mild osteoarthrosis changes with osteophyte format ion of the femoral head and left acetabulum. IMPRESSION: 1. Hip arthroplasty with hardware intact and in appropriate alignment. No acute fracture. 2. Left hip osteoarthrosis changes.
[2023-01-09 12:26] LABS: African American GFR (CKD) 60 (>60 ml/min/1.73 sqM); Anion Gap 9 mmol/L; Blood Urea Nitrogen 44 mg/dL (9-20); C Reactive Protein 8.2 mg/dL (<1.0); Calcium 8.4 mg/dL (8.4-10.2); Carbon Dioxide 31 mmol/L (22-30); Chloride 96 mmol/L (98-107); Glucose 188 mg/dL (74-99); Non-African American GFR(CKD) 52 (>60 ml/min/1.73 sqM); Potassium 4.3 mmol/L (3.5-5.1); Sodium 136 mmol/L (137-145); Uric Acid 10.2 mg/dL (3.5-8.5)
[2023-01-09] MEDS: SPIRONOLACTONE 25 MG TAB PO SCH (12:50)
--- NOTE | 2023-01-09 13:05 | P.CRDCN ---
History of Present Illness Consult date: 01/09/23 Consult reason: congestive heart failure History of present illness: History of present illness: This is a 57-year-old male patient of with a history of chronic obstructive lung disease, prior history of smoking, history of atrial fib rillation on eliquis, chronic diastolic heart failure, hypertension, chronic kidney disease, hyperlipidemia. Patient presented to the hospital due to difficulty with a left knee pain and swelling. Patient states he has been taking all of his medications as directed. He denies having chest pain. Noted mild lower extremity edema. EKG atrial fibrillation at 98 bpm Chest x-ray: 01/07 no evidence of acute pulmonary disease. Left knee no acute fracture or dislocation. CBC unremarkable. Sodium 136, potassium 4.3, chloride 96, CO2 31, BUN 44 creatinine 1.47. Blood sugar 188. Uric acid 10.2. C-reactive protein 8.2. Troponin negative 1. ProBNP 2080. TSH 1.11. Home cardiac medications: Eliquis 5 mg twice daily, atorvastatin 10 mg daily, Farxiga 10 mg daily, Cardizem X are 120 mg daily, Lasix 40 mg daily, losartan 25 mg at bedtime, Toprol-XL 100 mg daily, omega-3 fish oil daily, Aldactone 25 mg with lunch. Echocardiogram 10/17/2022: Normal LV systolic function. Lexiscan stress test 07/20/2022 revealed no evidence of reversible ischemia. Electrical cardioversion for atrial fibrillation 07/2021 RF ablation for atrial flutter 07/2021 Review Of Systems: At the time of my evaluation: Constitutional: No fever, no chills. No weakness, fatigue or lethargy. EENT: No headache. No dizziness. Lungs: Reports shortness of breath, cough, no sputum production. No wheezing. Cardiovascular: No chest pain, reports lower extremity edema. No palpitations. No paroxysmal nocturnal dyspnea. No orthopnea. No lightheadedness or dizziness. No syncopal episodes. Abdominal: No abdominal pain. No nausea, vomiting. No diarrhea. No constipation. No bloody or tarry stools. Musculoskeletal: No myalgias. No muscle weakness, no frequent falls. No back pain. No neck pain. Neurologic: No aphasia. No facial droop. No change in mentation. No head injury. No headache. Physical examination: Gen: This is a 57-year-old morbidly obese male. He is resting bed appears to be comfortable. VS: reviewed HEENT: Head is atraumatic, normocephalic. Pupils equal, round. Sclerae is anicte vasile. NECK: Supple. No JVD. . LUNGS: Diminished bilaterally, no wheezing No intercostal retractions. HEART: Irregular rate and rhythm. No murmur. ABDOMEN: Soft EXTREMITIES: Mild pedal edema. No calf tenderness. NEUROLOGICAL: Patient is awake, alert and oriented x3. Assessment: Acute on chronic diastolic heart failure Chronic persistent atrial fibrillation Morbid obesity with BMI of 48 Obstructive sleep apnea History of hypertension History of chronic kidney disease Hyperlipidemia Plan: Continue patient's home cardiac medications Continue Lasix 40 mg IV every 12 hours. Monitor I&O, daily weights, electrolytes and renal function No need to repeat echocardiogram as this was done on 10/17/2022 Further recommendations to follow based upon clinical course Thank you kindly for this consultation. Nurse practitioner note has been reviewed, I agree with documented findings and plan of care. Patient was seen and examined. 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 History of Any Multi-Drug Resistant Organisms: MRSA Date of last positivie culture/infection: 11/15/22 MDRO Source:: Left Leg Past Surgical History: Hernia Repair, Joint Replacement, Orthopedic Surgery Additional Past Surgical History / Comment(s): RT ARMAND, rt foot SX, Past Anesthesia/Blood Transfusion Reactions: No Reported Reaction Past Psychological History: Depression Smoking Status: Former smoker Past Alcohol Use History: None Reported Past Drug Use History: None Reported - Past Family History Mother Family Medical History: No Reported History Medications and Allergies Home Medications Medication Instructions Recorded Confirmed Type Apixaban [Eliquis] 5 mg PO BID #60 tab 05/13/21 01/07/23 Rx Losartan [Cozaar] 25 mg PO HS 07/09/22 01/07/23 History hydrOXYzine pamoate 50 mg PO HS PRN 07/09/22 01/07/23 History Atorvastatin [Lipitor] 10 mg PO DAILY 08/01/22 01/07/23 History Budesonide-Formot 160-4.5 Mcg 2 puff INHALATION RT-BID 08/01/22 01/07/23 History [Symbicort 160-4.5 Mcg Inhaler] INSULIN ASPART (NovoLOG) [NovoLOG See Protocol SQ ACHS PRN 09/04/22 01/07/23 History (formulary)] traMADol HCL 50 mg PO Q6H PRN 09/04/22 01/07/23 History Dapagliflozin Propanediol [Farxiga] 10 mg PO DAILY 30 Days #30 tab 09/10/22 01/07/23 Rx Famotidine [Pepcid] 20 mg PO BID #60 tab 09/10/22 01/07/23 Rx Melatonin 5 mg PO HS tab 09/10/22 01/07/23 Rx Metoprolol Succinate (ER) [Toprol 100 mg PO DAILY 30 Days #30 tab 09/10/22 01/07/23 Rx XL] busPIRone HCl [Buspar] 5 mg PO TID 30 Days #90 tab 09/10/22 01/07/23 Rx dilTIAZem HCL [dilTIAZem HCL 24Hr 120 mg PO DAILY #0 09/10/22 01/07/23 Rx ER (Xr)] Pregabalin [Lyrica] 100 mg PO TID 10/16/22 01/07/23 History Acetaminophen Tab [Tylenol] 650 mg PO Q4HR PRN tab 10/24/22 01/07/23 Rx Furosemide [Lasix] 40 mg PO DAILY #30 tablet 10/24/22 01/07/23 Rx [place]-3/Dha/Epa/Fish Oil [Fish Oil 1 cap PO DAILY 11/14/22 01/07/23 History 1,000 mg Softgel] Spironolactone [Aldactone] 25 mg PO W/LUNCH 11/14/22 01/07/23 History Ubidecarenone [Coenzyme Q10] 200 mg PO DAILY 11/14/22 01/07/23 History Ipratropium-Albuterol Nebulize 3 ml INHALATION RT-QID PRN 01/07/23 01/07/23 History [Duoneb 0.5 mg-3 mg/3 ml Soln] Allergies Allergy/AdvReac Type Severity Reaction Status Date / Time No Known Allergies Allergy Verified 01/07/23 16:58 Physical Exam Vitals: Vital Signs Temp Pulse Pulse Resp BP Pulse Ox 01/09/23 12:13 97.9 F 89 16 123/80 94 L 01/09/23 09:09 93 01/09/23 09:00 95 01/09/23 08:58 93 01/09/23 07:15 98.1 F 98 16 152/80 92 L 01/09/23 03:00 98.1 F 88 20 110/74 93 L 01/08/23 19:22 98.9 F 81 20 133/77 94 L 01/08/23 17:25 98.6 F 92 18 119/72 94 L 01/08/23 14:00 86 19 01/08/23 13:42 98.4 F 86 19 116/60 91 L Intake and Output 01/08/23 01/09/23 01/09/23 22:59 06:59 14:59 Output Total 800 650 825 Balance -800 -650 -825 Output: Urine 800 650 825 Other: Voiding Method Urinal Results 01/09/23 11:19 01/09/23 11:19 CBC 01/09/23 Range/Units 11:19 WBC 7.3 (3.8-10.6) k/uL RBC 5.34 (4.30-5.90) m/uL Hgb 14.5 (13.0-17.5) gm/dL Hct 44.4 (39.0-53.0) % Plt Count 295 (150-450) k/uL Comprehensive Metabolic Panel 01/09/23 Range/Units 11:19 Sodium 136 L (137-145) mmol/L Potassium 4.3 (3.5-5.1) mmol/L Chloride 96 L (98-107) mmol/L Carbon Dioxide 31 H (22-30) mmol/L BUN 44 H (9-20) mg/dL Creatinine 1.47 H (0.66-1.25) mg/dL Glucose 188 H (74-99) mg/dL Calcium 8.4 (8.4-10.2) mg/dL Current Medications Generic Name Dose Route Start Last Admin Trade Name Freq PRN Reason Stop Dose Admin Acetaminophen 650 mg 01/07/23 20:37 Acetaminophen Tab 325 Mg Tab PO Q4HR PRN Mild Pain or Fever > 100.5 Albuterol/Ipratropium 3 ml 01/07/23 20:37 01/09/23 08:56 Ipratropium-Albuterol 3 Ml Neb INHALATION 3 ml RT-QID PRN Administration Shortness Of Breath Apixaban 5 mg 01/07/23 21:00 01/09/23 08:53 Apixaban 5 Mg Tab PO 5 mg BID OBI Administration Protocol Atorvastatin Calcium 10 mg 01/08/23 09:00 01/09/23 08:54 Atorvastatin 10 Mg Tab PO 10 mg DAILY OBI Administration Budesonide/Formoterol Fumarate 2 puff 01/07/23 20:37 01/09/23 08:55 Symbicort 160-4.5 Mcg Inhaler INHALATION 2 puff RT-BID OBI Administration Buspirone HCl 5 mg 01/07/23 22:00 01/09/23 08:53 Buspirone Hcl 5 Mg Tab PO 5 mg TID OBI Administration Dapagliflozin 10 mg 01/08/23 09:00 01/09/23 08:56 Dapagliflozin Propanediol 10 Mg Tablet PO 10 mg DAILY OBI Administration Dextrose/Water 25 ml 01/07/23 20:38 Dextrose 50% Syringe 50 Ml IVP PER PROTOCOL PRN Hypoglycemia Protocol Dextrose/Water 50 ml 01/07/23 20:38 Dextrose 50% Syringe 50 Ml IVP PER PROTOCOL PRN Hypoglycemia Protocol Diltiazem HCl 120 mg 01/08/23 09:00 01/09/23 08:57 Diltiazem Cd 120 Mg Cap.Er.24h PO 120 mg DAILY OBI Administration Famotidine 20 mg 01/07/23 21:00 01/09/23 08:54 Famotidine 20 Mg Tab PO 20 mg BID OBI Administration Furosemide 40 mg 01/08/23 13:15 01/09/23 08:54 Furosemide 10 Mg/Ml 4 Ml Vial IV 40 mg Q12HR OBI Administration Hydroxyzine Pamoate 50 mg 01/07/23 20:37 Hydroxyzine Pamoate 25 Mg Cap PO HS PRN ANXIETY/INSOMNIA Insulin Aspart 0 unit 01/07/23 21:00 01/09/23 12:49 Insulin Aspart (Novolog) 100 Unit/Ml Vial SQ 100 unit ACHS OBI Administration Protocol Losartan Potassium 25 mg 01/07/23 21:00 01/08/23 20:39 Losartan 25 Mg Tab PO 25 mg HS OBI Administration Melatonin 5 mg 01/07/23 21:00 01/08/23 22:31 Melatonin 5 Mg Tablet PO Not Given HS OBI Metoprolol Succinate 100 mg 01/08/23 09:00 01/09/23 08:57 Metoprolol Succinate (Er) 100 Mg Tab.Er.24h PO 100 mg DAILY OBI Administration Morphine Sulfate 4 mg 01/07/23 16:27 01/09/23 08:53 Morphine Sulfate 4 Mg/Ml Syringe IV 4 mg Q4HR PRN Administration Severe Pain (Scale 7 to 10) Naloxone HCl 0.2 mg 01/07/23 16:17 Naloxone 0.4 Mg/Ml 1 Ml Vial IV Q2M PRN Opioid Reversal Non-Formulary Medication 200 mg 01/08/23 09:00 01/09/23 10:18 Ubidecarenone [Coenzyme Q10] PO Not Given DAILY OBI Pregabalin 100 mg 01/07/23 22:00 01/09/23 08:54 Pregabalin 100 Mg Cap PO 100 mg TID OBI Administration Spironolactone 25 mg 01/08/23 12:30 01/09/23 12:50 Spironolactone 25 Mg Tab PO 25 mg W/LUNCH OBI Administration Tramadol HCl 50 mg 01/07/23 20:37 01/09/23 12:52 Tramadol 50 Mg Tab PO 50 mg Q6H PRN Administration Pain Intake and Output 01/08/23 01/09/23 01/09/23 22:59 06:59 14:59 Output Total 800 650 825 Balance -800 650 -825 Output: Urine 800 650 825 Other: Voiding Method Urinal 01/09/23 11:19 01/09/23 11:19
[2023-01-09 13:16] LABS: Erythrocyte Sedimentation Rate 75 mm/hr (0-15)
--- NOTE | 2023-01-09 15:22 | P.PCN ---
Date of Procedure: 01/09/23 Preoperative Diagnosis: Left knee effusion; left knee pain; left knee stiffness Postoperative Diagnosis: Same Procedure(s) Performed: Left knee aspiration Surgeon: Js Duke Estimated Blood Loss (ml): 1 Pathology: other (gram stain, cell count, synovial crystals, aerobic, anaerobic) Indications for Procedure: Left knee pain; left knee effusion; left knee stiffness; elevated ESR and CRP Description of Procedure: left knee effusion Postoperative Diagnosis: same Procedure(s) Performed: left knee aspiration Anesthesia: local Surgeon: Js Duke Estimated Blood Loss (ml): 1 Pathology: other (cell count; synovial culture analysis; aerobic; anaerobic) Condition: stable Disposition: no change Indications for Procedure: left knee effusion; left knee pain Operative Findings: 3 cc serosanguineous fluid Description of Procedure: The risk and benefits of the procedure were discussed the patient today at bedside, he is in good understanding and would like to proceed. A consent form was obtained prior to the procedure, a timeout was done at bedside with the nursing staff. Appropriate paperwork was signed and dated. Patient was in semirecumbent position, the knee was prepped with 1 iodine swab and one alcohol swab. A 20-gauge needle was used to first inject 3 mL of 1% plain lidocaine via the suprapatellar approach. After anesthetization, I then aspirated about 3 mL of serosanguineous joint fluid from knee. Patient tolerated procedure well, a bandage was placed after the aspiration. Fluid was then sent to the lab for anaerobic and aerobic cultures, cell count, Gram stain and crystal analysis
--- NOTE | 2023-01-09 15:43 | P.CNOR ---
History of Present Illness - [facility] Consult date: 01/09/23 Requesting physician: Salvador Buckner Consult reason: other (Left knee swelling) History of present illness: . Patient is a 57-year-old male who presented to the emergency department and [facility] on 01/07/2023 due to decreasing ability to ambulate. Patient does have history of A. fib, COPD, obesity. He does follow with Dr. Dickerson for cardiology. Orthopedics was consulted today for left knee swelling. Patient was seen at bedside this afternoon lying in semirecumbent position. Patient says most of the pain he is having in his legs is located in his ankles where there is erythema with edema. Patient does have history of heart issues and COPD. Patient says he noticed the left knee swelling about 1 week ago patient denies any trauma was/injuries. Patient says he has had several more episodes in the past and this is also corresponded to the swelling in his feet and ankles with increased redness to the ankles and feet. Patient says it has been difficult to put weight on the left lower extremity since he has come in the hospital. Patient says he has tried a work physical therapy, however it has been difficult because his inability to put much weight on the left lower extremity without having pain. Patient states he does have limited range of motion the left knee due to the swelling, however, patient says he does not have any left knee pain and less he puts weight on the left leg. Patient does have previous orthopedic surgical history of right hip replacement. Patient cannot recall what surgeons performs surgery, but thinks it was performed over 10 years ago. Patient denies any fevers. ESR and CRP were elevated. Patient denies chest pain, fever, shortness of breath, nausea, vomiting, change in vision, loss of bowel/bladder control. 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 History of Any Multi-Drug Resistant Organisms: MRSA Year Discovered:: 11/15/22 MDRO Source:: Left Leg Past Surgical History: Hernia Repair, Joint Replacement, Orthopedic Surgery Additional Past Surgical History / Comment(s): RT ARMAND, rt foot SX, Past Anesthesia/Blood Transfusion Reactions: No Reported Reaction Past Psychological History: Depression Smoking Status: Former smoker Past Alcohol Use History: None Reported Past Drug Use History: None Reported - Past Family History Mother Family Medical History: No Reported History Medications and Allergies Home Medications Medication Instructions Recorded Confirmed Type Apixaban [Eliquis] 5 mg PO BID #60 tab 05/13/21 01/07/23 Rx Losartan [Cozaar] 25 mg PO HS 07/09/22 01/07/23 History hydrOXYzine pamoate 50 mg PO HS PRN 07/09/22 01/07/23 History Atorvastatin [Lipitor] 10 mg PO DAILY 08/01/22 01/07/23 History Budesonide-Formot 160-4.5 Mcg 2 puff INHALATION RT-BID 08/01/22 01/07/23 History [Symbicort 160-4.5 Mcg Inhaler] INSULIN ASPART (NovoLOG) [NovoLOG See Protocol SQ ACHS PRN 09/04/22 01/07/23 History (formulary)] traMADol HCL 50 mg PO Q6H PRN 09/04/22 01/07/23 History Dapagliflozin Propanediol [Farxiga] 10 mg PO DAILY 30 Days #30 tab 09/10/22 01/07/23 Rx Famotidine [Pepcid] 20 mg PO BID #60 tab 09/10/22 01/07/23 Rx Melatonin 5 mg PO HS tab 09/10/22 01/07/23 Rx Metoprolol Succinate (ER) [Toprol 100 mg PO DAILY 30 Days #30 tab 09/10/22 01/07/23 Rx XL] busPIRone HCl [Buspar] 5 mg PO TID 30 Days #90 tab 09/10/22 01/07/23 Rx dilTIAZem HCL [dilTIAZem HCL 24Hr 120 mg PO DAILY #0 09/10/22 01/07/23 Rx ER (Xr)] Pregabalin [Lyrica] 100 mg PO TID 10/16/22 01/07/23 History Acetaminophen Tab [Tylenol] 650 mg PO Q4HR PRN tab 10/24/22 01/07/23 Rx Furosemide [Lasix] 40 mg PO DAILY #30 tablet 10/24/22 01/07/23 Rx [place]-3/Dha/Epa/Fish Oil [Fish Oil 1 cap PO DAILY 11/14/22 01/07/23 History 1,000 mg Softgel] Spironolactone [Aldactone] 25 mg PO W/LUNCH 11/14/22 01/07/23 History Ubidecarenone [Coenzyme Q10] 200 mg PO DAILY 11/14/22 01/07/23 History Ipratropium-Albuterol Nebulize 3 ml INHALATION RT-QID PRN 01/07/23 01/07/23 History [Duoneb 0.5 mg-3 mg/3 ml Soln] Allergies Allergy/AdvReac Type Severity Reaction Status Date / Time No Known Allergies Allergy Verified 01/07/23 16:58 Physical Examination Inspection: Moderate swelling and edema in the bilateral lower extremities, worse in the left lower extremity in the foot/ankle. The edema does present erythema. Negative for any open fractures/ecchymosis. Negative for any open wounds on the bilateral lower extremities. Left knee does present with moderate effusion. Sensation: Sensation is equal, symmetric, bilaterally intact throughout the upper and lower extremities Palpation: Patient has moderate to severe tenderness to palpation over the left ankle anteriorly and medially where swelling and erythema is present. There is also fair to moderate TTP over right ankle. Patient is nontender to palpation over the left knee during exam. Left knee is lukewarm to touch. Range of motion: Patient lacks about 10-15 extension in the left knee to to the swelling. Patient is able to flex left knee to about 90 while lying in bed. Patient does have some limited range of motion in the bilateral ankles in dorsi/plantar flexion due to the swelling and pain in the ankles. Motor: 4+/5 in all major motor groups in bilateral lower extremities. Special tests: Negative Homans bilaterally. Neurovascular: Radial pulse intact, 2+ bilaterally. Cap refill under 3 seconds in digits of lower extremities. Results - Labs Labs: Abnormal Lab Results - Last 24 Hours (Table) 01/08/23 01/08/23 01/09/23 Range/Units 16:59 20:16 07:26 Lymphocytes # (1.0-4.8) k/uL ESR (0-15) mm/hr Sodium (137-145) mmol/L Chloride (98-107) mmol/L Carbon Dioxide (22-30) mmol/L BUN (9-20) mg/dL Creatinine (0.66-1.25) mg/dL Glucose (74-99) mg/dL POC Glucose (mg/dL) 121 H 185 H 139 H (70-110) mg/dL Uric Acid (3.5-8.5) mg/dL C-Reactive Protein (<1.0) mg/dL 01/09/23 01/09/23 01/09/23 Range/Units 11:19 11:19 11:55 Lymphocytes # 0.7 L (1.0-4.8) k/uL ESR 75 H (0-15) mm/hr Sodium 136 L (137-145) mmol/L Chloride 96 L (98-107) mmol/L Carbon Dioxide 31 H (22-30) mmol/L BUN 44 H (9-20) mg/dL Creatinine 1.47 H (0.66-1.25) mg/dL Glucose 188 H (74-99) mg/dL POC Glucose (mg/dL) 191 H (70-110) mg/dL Uric Acid 10.2 H (3.5-8.5) mg/dL C-Reactive Protein 8.2 H (<1.0) mg/dL H & H 01/07/23 01/08/23 01/09/23 Range/Units 14:01 07:48 11:19 Hgb 14.1 13.2 14.5 (13.0-17.5) gm/dL Hct 44.0 39.8 44.4 (39.0-53.0) % Coagulation 01/07/23 Range/Units 14:01 INR 1.0 (<1.2) Result Diagrams: 01/09/23 11:19 01/09/23 11:19 - Diagnostic results Knee x-ray: report reviewed, image reviewed (Left knee x-ray does presented moderate effusion. Negative for any fractures/dislocations. Some mild osteoarthritis) Assessment and Plan Assessment: 1. Left knee effusion; left knee stiffness/pain 2. Multiple medical comorbidities Plan: 1. Left knee effusion; left knee stiffness/pain - Left knee x-ray does present with moderate effusion. Negative for any fractures/dislocations. Some mild osteoarthritis. ESR and CRP were elevated. Patient does have range of motion in the left knee due to swelling. Aspiration of the left knee was performed with patient's consent and nurse at bedside. 3 mL serosamnguineous fluid was drained from knee and cultures/labs were sent. Cell count, synovial crystals, aerobic and anaerobic cultures sent. Patient may weight-bear as tolerated with walker as necessary with physical therapy daily. Pain medication as needed. Patient does have what appears to be a cellulitic component in the bilateral ankles. Patient may benefit from antibiotics. We will continue to follow patient during his stay in hospital. Pending final cultures, patient stable from an orthopedic standpoint for discharge. 2. Appreciate medical management 3. Pain management - Vistaril; Lyrica; tramadol 4. DVT prophylaxis - eliquis 5. GI prophylaxis - Pepcid 6. PT/OT - weightbearing as tolerated with walker and assistance as needed 7. Encourage incentive spirometer use 8. Appreciate consult Time with Patient: Less than 30
[2023-01-09 15:48] LABS: Appearance,BF Cloudy; Color,BF Red
[2023-01-09 16:17] LABS: RBC, Body Fluid 43867 /uL
[2023-01-09 16:18] LABS: Nucleated Cells, Body Fluid 956 /uL
[2023-01-09 16:20] LABS: Mononuclear WBC,Body Fluid 29 %; Polynuclear WBC,Body Fluid 71 %; Total Cells Counted,Body Fluid 100
[2023-01-09 17:13] LABS: Glucose,Whole Blood 136 mg/dL (70-110)
[2023-01-09 19:46] LABS: Glucose,Whole Blood 152 mg/dL (70-110)
[2023-01-09] MEDS: MELATONIN 5 MG TABLET PO SCH (21:12)
[2023-01-09] MEDS: LOSARTAN 25 MG TAB PO SCH (21:12)
[2023-01-10] MEDS: MORPHINE SULFATE 4 MG/ML SYRINGE IV PRN ×5 (02:14→20:49)
[2023-01-10 07:26] LABS: Glucose,Whole Blood 136 mg/dL (70-110)
[2023-01-10] MEDS: INSULIN ASPART (NovoLOG) 100 UNIT/ML VIAL SQ SCH ×4 (07:42→20:56)
[2023-01-10 08:33] LABS: Basophils # (A) 0.07 X 10*3/uL (0.00-0.10); Basophils % (A) 0.7 %; Eosinophils # (A) 0.22 X 10*3/uL (0.04-0.35); Eosinophils % (A) 2.1 %; HCT 43.6 % (39.6-50.0); HGB 14.4 d/dL (12.0-15.0); Lymphocytes # (A) 1.13 X 10*3/uL (0.90-5.00); Lymphocytes % (A) 10.7 %; MCV 87.9 FL (80.0-97.0); Mean Platelet Volume 10.5 FL (9.5-12.2); Monocytes # (A) 1.22 X 10*3/uL (0.20-1.00); Monocytes % (A) 11.6 %; NRBC Per 100 WBC 0 X 10*3/uL (0.00-0.01); Neutrophils # (A) 7.83 X 10*3/uL (1.80-7.70); Neutrophils % (A) 74.2 %; Platelet Count 314 X 10*3/uL (140-440); RBC 4.96 X 10*6/uL (4.40-5.60); RDW 15.6 % (11.5-14.5); WBC 10.54 X 10*3/uL (4.50-10.00)
[2023-01-10] MEDS: ATORVASTATIN 10 MG TAB PO SCH (08:47)
[2023-01-10] MEDS: APIXABAN 5 MG TAB PO SCH ×2 (08:47→20:23)
[2023-01-10] MEDS: FAMOTIDINE 20 MG TAB PO SCH ×2 (08:47→20:23)
[2023-01-10] MEDS: DILTIAZEM CD 120 MG CAP.ER.24H PO SCH (08:47)
[2023-01-10] MEDS: busPIRone HCl 5 MG TAB PO SCH ×3 (08:47→20:23)
[2023-01-10] MEDS: PREGABALIN 100 MG CAP PO SCH ×3 (08:47→20:23)
[2023-01-10] MEDS: NON FORMULARY DRUG (Ubidecarenone [Coenzyme Q10] 200 MG Capsule) PO SCH (08:48)
[2023-01-10] MEDS: DAPAGLIFLOZIN PROPANEDIOL 10 MG TABLET PO SCH (08:48)
[2023-01-10] MEDS: METOPROLOL SUCCINATE (ER) 100 MG TAB.ER.24H PO SCH (08:48)
[2023-01-10] MEDS: FUROSEMIDE 10 MG/ML 4 ML VIAL IV SCH ×2 (08:48→20:24)
[2023-01-10] MEDS: SYMBICORT 160-4.5 MCG INHALER INHALATION SCH ×2 (08:52→20:14)
[2023-01-10 08:54] LABS: BUN/Creat Ratio 25.87 Ratio (12.00-20.00); Blood Urea Nitrogen 38.8 mg/dL (9.0-27.0); Calcium 8.9 mg/dL (8.7-10.3); Carbon Dioxide 30.9 mmol/L (21.6-31.8); Chloride 94 mmol/L (96-109); Glucose 125 mg/dL (70-110); Potassium 5.1 mmol/L (3.5-5.5); Sodium 137 mmol/L (135-145)
[2023-01-10 09:59] LABS: Synovial Fld Crystals None Seen
--- NOTE | 2023-01-10 11:42 | P.PN ---
Subjective Progress Note Date: 01/10/23 History of present illness: This is a 57-year-old male patient of with a history of chronic obs tructive lung disease, prior history of smoking, history of atrial fibrillation on eliquis, chronic diastolic heart failure, hypertension, chronic kidney disease, hyperlipidemia. Patient presented to the hospital due to difficulty with a left knee pain and swelling. Patient states he has been taking all of his medications as directed. He denies having chest pain. Noted mild lower extremity edema. EKG atrial fibrillation at 98 bpm Chest x-ray: 01/07 no evidence of acute pulmonary disease. Left knee no acute fracture or dislocation. CBC unremarkable. Sodium 136, potassium 4.3, chloride 96, CO2 31, BUN 44 creatinine 1.47. Blood sugar 188. Uric acid 10.2. C-reactive protein 8.2. Troponin negative 1. ProBNP 0. TSH 1.11. Home cardiac medications: Eliquis 5 mg twice daily, atorvastatin 10 mg daily, Farxiga 10 mg daily, Cardizem X are 120 mg daily, Lasix 40 mg daily, losartan 25 mg at bedtime, Toprol-XL 100 mg daily, omega-3 fish oil daily, Aldactone 25 mg with lunch. Echocardiogram 10/17/2022: Normal LV systolic function. Lexiscan stress test 07/20/2022 revealed no evidence of reversible ischemia. Electrical cardioversion for atrial fibrillation 07/2021 RF ablation for atrial flutter 07/2021 patient is seen today in follow-up. He states he continues to have shortness of breath with minimal talking. He is unable to determine if his lower extremity edema is improved. He has urine output of 2250 from yesterday. No weights have been obtained.Repeat blood work reveals WBC 10.5, hemoglobin 14.4. BUN 38 creatinine 1.5. Blood sugar 125. Temperature max 100.1 and a heart rate 99, blood pressure 129/86, pulse ox 91% on 2 L. Patient is status post left knee aspiration Physical examination: Gen: This is a 57-year-old morbidly obese male. He is resting bed appears to be comfortable. VS: reviewed HEENT: Head is atraumatic, normocephalic. Pupils equal, round. Sclerae is anicteric. NECK: Supple. No JVD. . LUNGS: Diminished bilaterally, no wheezing No intercostal retractions. HEART: Irregular rate and rhythm. No murmur. ABDOMEN: Soft EXTREMITIES: Mild pedal edema. No calf tenderness. NEUROLOGICAL: Patient is awake, alert and oriented x3. Assessment: Acute on chronic diastolic heart failure Chronic persistent atrial fibrillation Morbid obesity with BMI of 48 Obstructive sleep apnea History of hypertension History of chronic kidney disease Hyperlipidemia left knee effusion. Plan: Continue patient's home cardiac medications Continue Lasix 40 mg IV every 12 hours. Monitor I&O, daily weights, electrolytes and renal function No need to repeat echocardiogram as this was done on 10/17/2022 Further recommendations to follow based upon clinical course Nurse practitioner note has been reviewed, I agree with documented findings and plan of care. Patient was seen and examined. Objective - Vital Signs Vital signs: Vital Signs Temp 100.1 F H 01/10/23 08:09 Pulse 99 01/10/23 08:09 Resp 16 01/10/23 08:09 BP 129/86 01/10/23 08:09 Pulse Ox 91 L 01/10/23 08:09 FiO2 Intake & Output 01/09/23 01/10/23 01/10/23 18:59 06:59 18:59 Intake Total 1080 Output Total 1125 2100 Balance -1125 -1020 Intake: Oral 1080 Output: Urine 1125 2100 Other: Voiding Method Urinal Urinal # Voids 1 # Bowel Movements 1 - Labs CBC & Chem 7: 01/10/23 06:15 01/10/23 06:15 Labs: Abnormal Lab Results - Last 24 Hours (Table) 01/09/23 01/09/23 01/09/23 Range/Units 11:19 11:19 11:55 Lymphocytes # 0.7 L (1.0-4.8) k/uL ESR 75 H (0-15) mm/hr Sodium 136 L (137-145) mmol/L Chloride 96 L (98-107) mmol/L Carbon Dioxide 31 H (22-30) mmol/L BUN 44 H (9-20) mg/dL Creatinine 1.47 H (0.66-1.25) mg/dL Glucose 188 H (74-99) mg/dL POC Glucose (mg/dL) 191 H (70-110) mg/dL Uric Acid 10.2 H (3.5-8.5) mg/dL C-Reactive Protein 8.2 H (<1.0) mg/dL 01/09/23 01/09/23 01/10/23 Range/Units 17:11 19:44 07:25 Lymphocytes # (1.0-4.8) k/uL ESR (0-15) mm/hr Sodium (137-145) mmol/L Chloride (98-107) mmol/L Carbon Dioxide (22-30) mmol/L BUN (9-20) mg/dL Creatinine (0.66-1.25) mg/dL Glucose (74-99) mg/dL POC Glucose (mg/dL) 136 H 152 H 136 H (70-110) mg/dL Uric Acid (3.5-8.5) mg/dL C-Reactive Protein (<1.0) mg/dL Microbiology - Last 24 Hours (Table) 01/09/23 15:10 Gram Stain - Preliminary Knee - Left
[2023-01-10 11:51] LABS: Glucose,Whole Blood 156 mg/dL (70-110)
[2023-01-10] MEDS: SPIRONOLACTONE 25 MG TAB PO SCH (12:52)
--- NOTE | 2023-01-10 14:22 | P.PN ---
Subjective Progress Note Date: 01/10/23 Principal diagnosis: Left knee effusion; left knee osteoarthritis; left knee stiffness Patient was seen at bedside this morning lying semirecumbent position in bed. Patient says he is still having bilateral ankle/foot pain. Patient states he has not had knee pain until he bears weight. Patient says he has been afraid to get up out of bed because he is afraid of falling once he puts weight on his lower extremities. Patient denies any other changes since yesterday. Patient is wondering when cultures will be back. Patient denies chest pain, fever, shortness breath, nausea, vomiting, change in vision, loss of bowel/bladder control. Objective - Vital Signs Vital signs: Vital Signs Temp 99.0 F 01/10/23 11:50 Pulse 95 01/10/23 11:50 Resp 16 01/10/23 11:50 BP 119/75 01/10/23 11:50 Pulse Ox 94 L 01/10/23 11:50 FiO2 Intake & Output 01/09/23 01/10/23 01/10/23 18:59 06:59 18:59 Intake Total 1080 Output Total 1125 2100 Balance -1125 -1020 Weight 134 kg Intake: Oral 1080 Output: Urine 1125 2100 Other: Voiding Method Urinal Urinal Urinal # Voids 1 # Bowel Movements 1 - Exam Inspection: Moderate swelling and edema in the bilateral lower extremities, worse in the left lower extremity in the foot/ankle. The edema does present erythema. Negative for any open fractures/ecchymosis. Negative for any open wounds on the bilateral lower extremities. Left knee does present with moderate effusion. Sensation: Sensation is equal, symmetric, bilaterally intact throughout the up per and lower extremities Palpation: Patient has moderate to severe tenderness to palpation over the left ankle anteriorly and medially where swelling and erythema is present. There is also fair to moderate TTP over right ankle. Patient is nontender to palpation over the left knee during exam. Left knee is lukewarm to touch. Range of motion: Patient lacks about 10-15 extension in the left knee to to the swelling. Patient is able to flex left knee to about 90 while lying in bed. Patient does have some limited range of motion in the bilateral ankles in dorsi/plantar flexion due to the swelling and pain in the ankles. Motor: 4+/5 in all major motor groups in bilateral lower extremities. Special tests: Negative Homans bilaterally. Neurovascular: Radial pulse intact, 2+ bilaterally. Cap refill under 3 seconds in digits of lower extremities. - Labs CBC & Chem 7: 01/10/23 06:15 01/10/23 06:15 Labs: Abnormal Lab Results - Last 24 Hours (Table) 01/09/23 01/09/23 01/10/23 Range/Units 17:11 19:44 06:15 WBC 10.54 H (4.50-10.00) X 10*3/uL RDW 15.6 H (11.5-14.5) % Neutrophils # 7.83 H (1.80-7.70) X 10*3/uL Monocytes # 1.22 H (0.20-1.00) X 10*3/uL Chloride (96-109) mmol/L Anion Gap (4.00-12.00) mmol/L BUN (9.0-27.0) mg/dL Est GFR (CKD-EPI) (>=60) BUN/Creatinine Ratio (12.00-20.00) Ratio Glucose (70-110) mg/dL POC Glucose (mg/dL) 136 H 152 H (70-110) mg/dL 01/10/23 01/10/23 01/10/23 Range/Units 06:15 07:25 11:49 WBC (4.50-10.00) X 10*3/uL RDW (11.5-14.5) % Neutrophils # (1.80-7.70) X 10*3/uL Monocytes # (0.20-1.00) X 10*3/uL Chloride 94 L (96-109) mmol/L Anion Gap 12.10 H (4.00-12.00) mmol/L BUN 38.8 H (9.0-27.0) mg/dL Est GFR (CKD-EPI) 53 L (>=60) BUN/Creatinine Ratio 25.87 H (12.00-20.00) Ratio Glucose 125 H (70-110) mg/dL POC Glucose (mg/dL) 136 H 156 H (70-110) mg/dL Microbiology - Last 24 Hours (Table) 01/09/23 15:10 Gram Stain - Preliminary Knee - Left Assessment and Plan Assessment: 1. Left knee effusion; left knee stiffness; left knee OA 2. Multiple medical comorbidities Plan: 1. Left knee effusion; left knee stiffness; left knee OA- Left knee x-ray does present with moderate effusion. Negative for any fractures/dislocations. tricompartmental osteoarthritis. ESR and CRP were elevated. Patient does have range of motion in the left knee due to swelling. Aspiration of the left knee was performed with patient's consent and nurse at bedside yesterday. Cultures pending at this time. Negative for crystals. Low concern for septic knee due to physical exam and prelim culture findings and cell count. Patient may weight- bear as tolerated with walker as necessary with physical therapy daily. Pain medication as needed. Patient does have what appears to be a cellulitic component in the bilateral ankles. Patient may benefit from antibiotics. We will continue to follow patient during his stay in hospital. Pending final cultures, patient stable from an orthopedic standpoint for discharge. 2. Appreciate medical management 3. Pain management - Vistaril; Lyrica; tramadol 4. DVT prophylaxis - eliquis 5. GI prophylaxis - Pepcid 6. PT/OT - weightbearing as tolerated with walker and assistance as needed 7. Encourage incentive spirometer use 8. Appreciate consult Time with Patient: Less than 30
[2023-01-10] MEDS: methylPREDNISolone SOD SUCCI 40 MG/ML 1 ML VIAL IV SCH ×2 (15:18→20:49)
[2023-01-10 17:10] LABS: Glucose,Whole Blood 185 mg/dL (70-110)
--- NOTE | 2023-01-10 19:36 | P.PN ---
Subjective Progress Note Date: 01/10/23 This is a 57-year-old male who was recently admitted with increased shortness of breath with inability to ambulate and difficulty in walking with leg pain and swelling found to be CHF exacerbation. Patient also with severe left knee pain with x-ray showing no fractures although was noted to have an effusion and was evaluated by orthopedics underwent needle aspiration at bedside. Uric acid elevated and will initiate colchicine and steroids. Patient requiring IV pain medications and recommend adjusting medications including oral medications for pain management. Patient is afebrile with no reports of chest pain or worsening shortness of breath. Patient is tolerating diet with no reports of nausea or vomiting noted. Case management following and patient will require insurance authorization for ECF. Patient continues with weakness and would recommend physical therapy evaluation daily. Review of systems: Constitutional: No reports of fatigue, fever, or chills Cardiovascular: No reports of chest pain or palpitations Respiratory: No reports of worsening shortness of breath GI: no reports of nausea, no reports of vomiting, no diarrhea : No reports of dysuria or retention Neurovascular: reports of generalized weakness, continued left knee pain All medications have been reviewed PHYSICAL EXAMINATION: GENERAL: The patient is alert and oriented x4, Well developed, well nourished. Morbidly obese HEENT: Pupils are round and equally reacting to light. EOMI. no scleral icterus. No conjunctival pallor. Normocephalic, atraumatic. No pharyngeal erythema. No thyromegaly. CARDIOVASCULAR: S1 and S2 muffled PULMONARY: diminished breath sounds bilaterally with no wheezing , coarse scattered rhonchi noted. ABDOMEN: soft. Nontender on exam. obese. non-distended, normoactive bowel sounds. No palpable organomegaly. MUSCULOSKELETAL: No joint swelling or deformity. EXTREMITIES: No cyanosis, clubbing, or pedal edema. Bilateral lower edema, nonpitting with some mild redness noted and improvements in the edema NEUROLOGICAL: Gross neurological examination did not reveal any focal deficits. Diffuse weakness SKIN: No rashes. Assessment: Acute on chronic congestive heart failure with acute exacerbation, diastolic dysfunction Bilateral leg edema with concerns of possible acute cellulitis, present on admission Lower extremity swelling likely secondary to congestive heart failure acute exacerbation Left knee pain with no diffusion behind the knee status post needle aspiration at bedside Acute gouty attack, with elevated uric acid, sed rate, CK History of asthma Gait dysfunction and weakness COPD, acute exacerbation Acute on chronic hypoxic respiratory failure secondary to COPD as well as CHF Morbid obesity with a BMI of 40.1 Diabetes mellitus2, uncontrolled with hyperglycemia GI prophylaxis DVT prophylaxis Full code Plan: Recommend to continue with current medications and management with orthopedics following. Multiple other consultations following as well for CHF as well as COPD acute exacerbation. Patient was seen and evaluated by orthopedics at bedside and underwent left knee aspiration and low suspicion for any septic arthritis. Was noted to have effusion with difficulty in ambulation and flexion due to this. Physical therapy evaluating the patient recommending subacute rehab and patient is agreeable Patient is maintaining on IV Lasix and will continue her diuresis Uric acid along with CK and sed rate elevated most likely gouty attack and will start colchicine 0.6 mg twice daily as well as initiating IV steroids Recommend continue monitoring Accu-Cheks before meals and at bedtime and continue sliding scale Patient continues to require pain medications intravenously and will increase pain management with consideration of possible discharge in the next 24-48 hours Case management is following and awaiting insurance authorization for ECF Due to multiple complex medical issues, prognosis is guarded The impression and plan of care has been dictated by Shayna Garcia, nurse practitioner as directed. Dr. Ja MD I have performed a history and examination and MDM of this patient, discussed the same with the dictator, and agree with the dictator's assessment and plan as written ,documented as a scribe. Based on total visit time, I have performed more than 50% of the visit. Any additional findings or plans will be noted. Objective - Vital Signs Vital signs: Vital Signs Temp 99.0 F 01/10/23 11:50 Pulse 95 01/10/23 11:50 Resp 16 01/10/23 11:50 BP 119/75 01/10/23 11:50 Pulse Ox 94 L 01/10/23 11:50 FiO2 Intake & Output 01/09/23 01/10/23 01/10/23 18:59 06:59 18:59 Intake Total 1080 Output Total 1125 2100 Balance -1125 -1020 Weight 134 kg Intake: Oral 1080 Output: Urine 1125 2100 Other: Voiding Method Urinal Urinal Urinal # Voids 1 # Bowel Movements 1 - Labs CBC & Chem 7: 01/10/23 06:15 01/10/23 06:15 Labs: Abnormal Lab Results - Last 24 Hours (Table) 01/09/23 01/09/23 01/10/23 Range/Units 17:11 19:44 06:15 WBC 10.54 H (4.50-10.00) X 10*3/uL RDW 15.6 H (11.5-14.5) % Neutrophils # 7.83 H (1.80-7.70) X 10*3/uL Monocytes # 1.22 H (0.20-1.00) X 10*3/uL Chloride (96-109) mmol/L Anion Gap (4.00-12.00) mmol/L BUN (9.0-27.0) mg/dL Est GFR (CKD-EPI) (>=60) BUN/Creatinine Ratio (12.00-20.00) Ratio Glucose (70-110) mg/dL POC Glucose (mg/dL) 136 H 152 H (70-110) mg/dL 01/10/23 01/10/23 01/10/23 Range/Units 06:15 07:25 11:49 WBC (4.50-10.00) X 10*3/uL RDW (11.5-14.5) % Neutrophils # (1.80-7.70) X 10*3/uL Monocytes # (0.20-1.00) X 10*3/uL Chloride 94 L (96-109) mmol/L Anion Gap 12.10 H (4.00-12.00) mmol/L BUN 38.8 H (9.0-27.0) mg/dL Est GFR (CKD-EPI) 53 L (>=60) BUN/Creatinine Ratio 25.87 H (12.00-20.00) Ratio Glucose 125 H (70-110) mg/dL POC Glucose (mg/dL) 136 H 156 H (70-110) mg/dL Microbiology - Last 24 Hours (Table) 01/09/23 15:10 Gram Stain - Preliminary Knee - Left
[2023-01-10] MEDS: IPRATROPIUM-ALBUTEROL 3 ML NEB INHALATION PRN (20:14)
[2023-01-10 20:17] LABS: Glucose,Whole Blood 208 mg/dL (70-110)
[2023-01-10] MEDS: LOSARTAN 25 MG TAB PO SCH (20:23)
[2023-01-10] MEDS: MELATONIN 5 MG TABLET PO SCH (20:23)
[2023-01-10] MEDS ORDERED: COLCHICIN-PROBENECID 0.5-500MG 1 EACH TAB PO SCH (21:00)
[2023-01-11] MEDS: MORPHINE SULFATE 4 MG/ML SYRINGE IV PRN ×2 (01:04→06:27)
[2023-01-11] MEDS: methylPREDNISolone SOD SUCCI 40 MG/ML 1 ML VIAL IV SCH ×2 (01:26→08:23)
[2023-01-11 07:50] LABS: Glucose,Whole Blood 267 mg/dL (70-110)
[2023-01-11] MEDS: SYMBICORT 160-4.5 MCG INHALER INHALATION SCH (08:04)
[2023-01-11] MEDS: busPIRone HCl 5 MG TAB PO SCH (08:23)
[2023-01-11] MEDS: APIXABAN 5 MG TAB PO SCH (08:23)
[2023-01-11] MEDS: FUROSEMIDE 10 MG/ML 4 ML VIAL IV SCH (08:23)
[2023-01-11] MEDS: DILTIAZEM CD 120 MG CAP.ER.24H PO SCH (08:23)
[2023-01-11] MEDS: FAMOTIDINE 20 MG TAB PO SCH (08:23)
[2023-01-11] MEDS: INSULIN ASPART (NovoLOG) 100 UNIT/ML VIAL SQ SCH ×2 (08:23→13:03)
[2023-01-11] MEDS: PREGABALIN 100 MG CAP PO SCH (08:23)
[2023-01-11] MEDS: DAPAGLIFLOZIN PROPANEDIOL 10 MG TABLET PO SCH (08:23)
[2023-01-11] MEDS: ATORVASTATIN 10 MG TAB PO SCH (08:23)
[2023-01-11] MEDS: METOPROLOL SUCCINATE (ER) 100 MG TAB.ER.24H PO SCH (08:23)
[2023-01-11] MEDS: traMADol 50 MG TAB PO PRN ×2 (08:36→15:34)
[2023-01-11 08:53] VITALS: RESP 20; TEMP 98.6
[2023-01-11] MEDS ORDERED: PROBENECID 500 MG TAB PO SCH (09:00)
[2023-01-11] MEDS ORDERED: COLCHICINE 0.6 MG EACH PO SCH (09:00)
--- NOTE | 2023-01-11 09:38 | P.PN ---
Subjective Progress Note Date: 01/11/23 Principal diagnosis: Left knee effusion; left knee osteoarthritis; left knee stiffness Patient was seen at bedside this morning sitting up in chair. Patient says he is doing a little bit better today in regards to the bilateral ankle/foot pain. Patient says he was able to put weight on his bilateral lower extremities and walk to the chair. Patient notes he is still having some swelling, however, patient feels it is improving. Cultures still pending at this time on from left knee. Patient denies chest pain, fever, shortness breath, nausea, vomiting, change in vision, loss of bowel/bladder control. Objective - Vital Signs Vital signs: Vital Signs Temp 98.6 F 01/11/23 07:30 Pulse 89 01/11/23 07:30 Resp 20 01/11/23 07:30 BP 117/71 01/11/23 07:30 Pulse Ox 95 01/11/23 08:06 FiO2 Intake & Output 01/10/23 01/11/23 01/11/23 18:59 06:59 18:59 Output Total 300 950 Balance -300 -950 Weight 134 kg 157.3 kg Output: Urine 300 950 Other: Voiding Method Urinal Urinal # Voids 1 # Bowel Movements 1 - Exam Inspection: Moderate swelling and edema in the bilateral lower extremities, worse in the left lower extremity in the foot/ankle. The edema does present erythema. Negative for any open fractures/ecchymosis. Negative for any open wounds on the bilateral lower extremities. Left knee does present with moderate effusion. Sensation: Sensation is equal, symmetric, bilaterally intact throughout the upper and lower extremities Palpation: Patient has moderate to severe tenderness to palpation over the left ankle anteriorly and medially where swelling and erythema is present. There is also fair to moderate TTP over right ankle. Patient is nontender to palpation over the left knee during exam. Left knee is lukewarm to touch. Range of motion: Patient lacks about 10 extension in the left knee to to the swelling. Patient is able to flex left knee to about 90 while sitting in marj r. Patient does have some limited range of motion in the bilateral ankles in dorsi/plantar flexion due to the swelling and pain in the ankles. Motor: 4+/5 in all major motor groups in bilateral lower extremities. Special tests: Negative Homans bilaterally. Neurovascular: Radial pulse intact, 2+ bilaterally. Cap refill under 3 seconds in digits of lower extremities. - Labs CBC & Chem 7: 01/10/23 06:15 01/10/23 06:15 Labs: Abnormal Lab Results - Last 24 Hours (Table) 01/10/23 01/10/23 01/10/23 Range/Units 11:49 17:09 20:16 POC Glucose (mg/dL) 156 H 185 H 208 H (70-110) mg/dL 01/11/23 Range/Units 07:48 POC Glucose (mg/dL) 267 H (70-110) mg/dL Microbiology - Last 24 Hours (Table) 01/09/23 15:10 Gram Stain - Preliminary Knee - Left Wound Culture - Preliminary Assessment and Plan Assessment: 1. Left knee effusion; left knee stiffness; left knee OA 2. Multiple medical comorbidities Plan: 1. Left knee effusion; left knee stiffness; left knee OA- Left knee x-ray does present with moderate effusion. Negative for any fractures/dislocations. tricompartmental osteoarthritis. ESR and CRP were elevated. Patient does have range of motion in the left knee due to swelling. Aspiration of the left knee was performed with patient's consent and nurse at bedside Saturday. Cultures pending at this time. Negative for crystals. Low concern for septic knee due to physical exam and prelim culture findings and cell count. Patient may weight- bear as tolerated with walker as necessary with physical therapy daily. Pain medication as needed. Patient does have what appears to be a cellulitic component in the bilateral ankles. Patient currently on cefazolin. We will continue to follow patient during his stay in hospital. Pending final cultures, patient stable from an orthopedic standpoint for discharge. 2. Appreciate medical management 3. Pain management - Vistaril; Lyrica; tramadol 4. DVT prophylaxis - eliquis 5. GI prophylaxis - Pepcid 6. PT/OT - weightbearing as tolerated with walker and assistance as needed 7. Encourage incentive spirometer use Time with Patient: Less than 30
--- NOTE | 2023-01-11 10:51 | P.PN ---
Subjective Progress Note Date: 01/11/23 History of present illness: This is a 57-year-old male patient of with a history of chronic obs tructive lung disease, prior history of smoking, history of atrial fibrillation on eliquis, chronic diastolic heart failure, hypertension, chronic kidney disease, hyperlipidemia. Patient presented to the hospital due to difficulty with a left knee pain and swelling. Patient states he has been taking all of his medications as directed. He denies having chest pain. Noted mild lower extremity edema. EKG atrial fibrillation at 98 bpm Chest x-ray: 01/07 no evidence of acute pulmonary disease. Left knee no acute fracture or dislocation. CBC unremarkable. Sodium 136, potassium 4.3, chloride 96, CO2 31, BUN 44 creatinine 1.47. Blood sugar 188. Uric acid 10.2. C-reactive protein 8.2. Troponin negative 1. ProBNP 0. TSH 1.11. Home cardiac medications: Eliquis 5 mg twice daily, atorvastatin 10 mg daily, Farxiga 10 mg daily, Cardizem X are 120 mg daily, Lasix 40 mg daily, losartan 25 mg at bedtime, Toprol-XL 100 mg daily, omega-3 fish oil daily, Aldactone 25 mg with lunch. Echocardiogram 10/17/2022: Normal LV systolic function. Lexiscan stress test 07/20/2022 revealed no evidence of reversible ischemia. Electrical cardioversion for atrial fibrillation 07/2021 RF ablation for atrial flutter 07/2021 patient is seen today in follow-up. He states he continues to have shortness of breath with minimal talking. He is unable to determine if his lower extremity edema is improved. He has urine output of 2250 from yesterday. No weights have been obtained.Repeat blood work reveals WBC 10.5, hemoglobin 14.4. BUN 38 creatinine 1.5. Blood sugar 125. Temperature max 100.1 and a heart rate 99, blood pressure 129/86, pulse ox 91% on 2 L. Patient is status post left knee aspiration 01/11 Patient is seen today in follow-up. He states he has shortness of breath with minimal exertion. Unable to determine if he has improvement in this. He also is not sure if he's had improvement of his lower extremity edema. Fluid balance is -2145. Patient's weight is down 1-1/2 kg from yesterday. Repeat blood work is not available at the time of this dictation. Yesterday, BUN 38 and creatinine 1.5. Patient has been maintained on IV Lasix 40 mg every 12 hours. Physical examination: Gen: This is a 57-year-old morbidly obese male. He is resting on recliner and appears to be comfortable. VS: reviewed HEENT: Head is atraumatic, normocephalic. Pupils equal, round. Sclerae is anicteric. NECK: Supple. No JVD. . LUNGS: Diminished bilaterally, no wheezing No intercostal retractions. HEART: Irregular rate and rhythm. No murmur. ABDOMEN: Soft EXTREMITIES: Mild pedal edema. No calf tenderness. NEUROLOGICAL: Patient is awake, alert and oriented x3. Assessment: Acute on chronic diastolic heart failure Chronic persistent atrial fibrillation Morbid obesity with BMI of 48 Obstructive sleep apnea History of hypertension History of chronic kidney disease Hyperlipidemia left knee effusion. Plan: Continue patient's home cardiac medications Continue Lasix 40 mg IV every 12 hours. Monitor I&O, daily weights, electrolytes and renal function No need to repeat echocardiogram as this was done on 10/17/2022 Further recommendations to follow based upon clinical course Nurse practitioner note has been reviewed, I agree with documented findings and plan of care. Patient was seen and examined. Objective - Vital Signs Vital signs: Vital Signs Temp 97.4 F L 01/11/23 01:21 Pulse 81 01/11/23 01:21 Resp 18 01/11/23 01:21 BP 108/72 01/11/23 01:21 Pulse Ox 95 01/11/23 08:06 FiO2 Intake & Output 01/10/23 01/11/23 01/11/23 18:59 06:59 18:59 Output Total 300 950 Balance -300 -950 Weight 134 kg 157.3 kg Output: Urine 300 950 Other: Voiding Method Urinal Urinal # Voids 1 # Bowel Movements 1 - Labs CBC & Chem 7: 01/10/23 06:15 01/10/23 06:15 Labs: Abnormal Lab Results - Last 24 Hours (Table) 01/10/23 01/10/23 01/10/23 Range/Units 06:15 11:49 17:09 Chloride 94 L (96-109) mmol/L Anion Gap 12.10 H (4.00-12.00) mmol/L BUN 38.8 H (9.0-27.0) mg/dL Est GFR (CKD-EPI) 53 L (>=60) BUN/Creatinine Ratio 25.87 H (12.00-20.00) Ratio Glucose 125 H (70-110) mg/dL POC Glucose (mg/dL) 156 H 185 H (70-110) mg/dL 01/10/23 01/11/23 Range/Units 20:16 07:48 Chloride (96-109) mmol/L Anion Gap (4.00-12.00) mmol/L BUN (9.0-27.0) mg/dL Est GFR (CKD-EPI) (>=60) BUN/Creatinine Ratio (12.00-20.00) Ratio Glucose (70-110) mg/dL POC Glucose (mg/dL) 208 H 267 H (70-110) mg/dL Microbiology - Last 24 Hours (Table) 01/09/23 15:10 Gram Stain - Preliminary Knee - Left Wound Culture - Preliminary
[2023-01-11 11:42] LABS: BUN/Creat Ratio 31.88 Ratio (12.00-20.00); Calcium 9.2 mg/dL (8.7-10.3); Carbon Dioxide 25.9 mmol/L (21.6-31.8); Chloride 92 mmol/L (96-109); Glucose 228 mg/dL (70-110); Potassium 5.8 mmol/L (3.5-5.5); Sodium 136 mmol/L (135-145)
[2023-01-11 12:16] LABS: Glucose,Whole Blood 303 mg/dL (70-110)
[2023-01-11 12:24] VITALS: BP 122/70; PULSE 86
[2023-01-11] MEDS ORDERED: SODIUM ZIRCONIUM CYCLOSILICATE 10 GM PACKET PO ONE (12:30)
[2023-01-11] MEDS: SPIRONOLACTONE 25 MG TAB PO SCH (13:03)
--- NOTE | 2023-01-11 14:20 | P.DS ---
Providers Date of admission: 01/08/23 13:12 Expected date of discharge: 01/11/23 Attending physician: Rashaad Peres Consults: 01/08/23 10:25 Consult Physician Routine Consulting Provider: Juan Craven Consult Reason/Comments: Left knee swelling Do you want consulting provider notified?: Yes 01/09/23 10:40 Consult Physician Routine Consulting Provider: Aron Lua Consult Reason/Comments: chf Do you want consulting provider notified?: Yes Primary care physician: Parish Iverson [facility] Course: Final diagnosis Acute on chronic congestive heart failure with acute exacerbation, diastolic dysfunction Bilateral leg edema with concerns of possible acute cellulitis, present on admission Hyperkalemia Lower extremity swelling likely secondary to congestive heart failure acute exacerbation Left knee pain with no diffusion behind the knee status post needle aspiration at bedside Acute gouty attack, with elevated uric acid, sed rate, CK History of asthma Gait dysfunction and weakness COPD, acute exacerbation Acute on chronic hypoxic respiratory failure secondary to COPD as well as CHF Morbid obesity with a BMI of 40.1 Diabetes mellitus2, uncontrolled with hyperglycemia GI prophylaxis DVT prophylaxis Full code Discharge disposition Patient is being discharged in a stable condition with guarded prognosis to [facility] . Patient will follow-up with Dr. Iverson in the outpatient setting upon discharge. Patient is to continue with oral Keflex 500 mg 3 times a day for the next 1 week as well as a prednisone taper. Recommend repeat BMP in the next 2-3 days to monitor kidney functions and potassium levels. Total time taken is greater than 35 minutes. Hospital course This is a 57-year-old male who was recently admitted with inability to ambulate with difficulty in walking with leg pain and swelling found to have CHF exacerbation along with acute COPD exacerbation. Multiple medical consultations following including cardiology maintained on IV Lasix for diuresis. Patient's kidney function slightly elevated although chronic kidney disease and currently at 1.6 recommending Lasix 40 mg daily along with follow-up labs. Potassium slightly elevated at 5.8 and gave a dose of Lokelma recommending low potassium heart healthy, diabetic diet and also recommending follow-up labs for BMP in the next 2-3 days. Patient was also seen and evaluated by orthopedics for continued left knee pain and inability to ambulate and underwent needle aspiration at bedside. Uric acid along with CK and sed rate elevated most likely a gouty attack and patient will continue on 0.6 mg of colchicine twice daily for 1 week and will complete a prednisone taper. Patient is a diabetic and would recommend continuing the sliding scale and will add low-dose long-acting insulin while on steroids. Patient has been cleared by consultations for discharge and would recommend close outpatient follow-up with cardiology along with pulmonary. Patient to follow-up with orthopedics outpatient as needed. Patient with significant weakness seen and evaluated by physical therapy recommending rehab and patient is agreeable. Patient will be going to [facility] for continued s trength and mobility. Patient also instructed to follow-up with primary care provider on discharge. Currently no reports of chest pain, shortness of breath, or palpitations. Patient is afebrile. No reports of nausea or vomiting and patient is tolerating diet. Strongly recommend a heart healthy/diabetic/renal low potassium diet. Patient will be going to [facility] today. Guarded prognosis and high risk for readmission has patient has had multiple hospitalizations due to noncompliance with medications and significant comorbidities. Physical exam: Gen: This is a 57-year-old male who is awake, alert and oriented 3, well- developed, well-nourished, morbidly obese HEENT: Head is atraumatic, normocephalic. Pupils equal, round. Sclerae is anicteric. NECK: Supple. No JVD. No lymphadenopathy. No thyromegaly. LUNGS: Diminished breath sounds bilaterally with some scattered rhonchi. No intercostal retractions. HEART: S1, S2 are muffled ABDOMEN: Soft. Morbidly obese. Bowel sounds are present. No masses. No tenderness. EXTREMITIES: No pedal edema. No calf tenderness. Minimal lower extremity swelling, significantly improved and nonpitting. Minimal redness noted of bilateral lower extremities with improvement NEUROLOGICAL: Patient is awake, alert and oriented x3. Cranial nerves 2 through 12 are grossly intact. Diffusely weak Please refer to medication reconciliation sheet for a list of medications. The impression and plan of care has been dictated by Shayna Garcia, Nurse Practitioner as directed. Dr. Peres, MD I have performed a history and examination and MDM of this patient, discussed the same with the dictator, and agree with the dictator's assessment and plan as written ,documented as a scribe. Based on total visit time, I have performed more than 50% of the visit. Patient Condition at Discharge: Stable Plan - Discharge Summary New Discharge Prescriptions: New Cephalexin [Keflex] 500 mg PO Q8HR 7 Days #21 cap traMADol HCl [Ultram] 50 mg PO Q6H PRN #4 tab PRN Reason: Pain predniSONE 10 mg PO DIRECTED #30 tab Ipratropium-Albuterol Nebulize [Duoneb 0.5 mg-3 mg/3 ml Soln] 3 ml INHALATION RT-QID #100 each Colchicine [Colcrys] 0.6 mg PO BID 7 Days #14 each Continue hydrOXYzine pamoate 50 mg PO HS PRN PRN Reason: ANXIETY/INSOMNIA Budesonide-Formot 160-4.5 Mcg [Symbicort 160-4.5 Mcg Inhaler] 2 puff INHALATION RT-BID INSULIN ASPART (NovoLOG) [NovoLOG (formulary)] See Protocol SQ ACHS PRN PRN Reason: Blood Sugar - High Dapagliflozin Propanediol [Farxiga] 10 mg PO DAILY 30 Days #30 tab Melatonin 5 mg PO HS tab Metoprolol Succinate (ER) [Toprol XL] 100 mg PO DAILY 30 Days #30 tab dilTIAZem HCL [dilTIAZem HCL 24Hr ER (Xr)] 120 mg PO DAILY #0 Furosemide [Lasix] 40 mg PO DAILY #30 tablet Spironolactone [Aldactone] 25 mg PO W/LUNCH [place]-3/Dha/Epa/Fish Oil [Fish Oil 1,000 mg Softgel] 1 cap PO DAILY Ubidecarenone [Coenzyme Q10] 200 mg PO DAILY Ipratropium-Albuterol Nebulize [Duoneb 0.5 mg-3 mg/3 ml Soln] 3 ml INHALATION RT-QID PRN PRN Reason: Shortness Of Breath Pregabalin [Lyrica] 100 mg PO TID #3 cap Apixaban [Eliquis] 5 mg PO BID #60 tab Losartan [Cozaar] 25 mg PO HS Atorvastatin [Lipitor] 10 mg PO DAILY busPIRone HCl [Buspar] 5 mg PO TID 30 Days #90 tab Famotidine [Pepcid] 20 mg PO BID #60 tab Acetaminophen Tab [Tylenol] 650 mg PO Q4HR PRN tab PRN Reason: Mild Pain Or Fever > 100.5 Discontinued traMADol HCL 50 mg PO Q6H PRN PRN Reason: Pain Discharge Medication List Apixaban [Eliquis] 5 mg PO BID #60 tab 05/13/21 [Rx] Losartan [Cozaar] 25 mg PO HS 07/09/22 [History] hydrOXYzine pamoate 50 mg PO HS PRN 07/09/22 [History] Atorvastatin [Lipitor] 10 mg PO DAILY 08/01/22 [History] Budesonide-Formot 160-4.5 Mcg [Symbicort 160-4.5 Mcg Inhaler] 2 puff INHALATION RT-BID 08/01/22 [History] INSULIN ASPART (NovoLOG) [NovoLOG (formulary)] See Protocol SQ ACHS PRN 09/04/22 [History] Dapagliflozin Propanediol [Farxiga] 10 mg PO DAILY 30 Days #30 tab 09/10/22 [Rx] Famotidine [Pepcid] 20 mg PO BID #60 tab 09/10/22 [Rx] Melatonin 5 mg PO HS tab 09/10/22 [Rx] Metoprolol Succinate (ER) [Toprol XL] 100 mg PO DAILY 30 Days #30 tab 09/10/22 [Rx] busPIRone HCl [Buspar] 5 mg PO TID 30 Days #90 tab 09/10/22 [Rx] dilTIAZem HCL [dilTIAZem HCL 24Hr ER (Xr)] 120 mg PO DAILY #0 09/10/22 [Rx] Acetaminophen Tab [Tylenol] 650 mg PO Q4HR PRN tab 10/24/22 [Rx] Furosemide [Lasix] 40 mg PO DAILY #30 tablet 10/24/22 [Rx] [place]-3/Dha/Epa/Fish Oil [Fish Oil 1,000 mg Softgel] 1 cap PO DAILY 11/14/22 [History] Spironolactone [Aldactone] 25 mg PO W/LUNCH 11/14/22 [History] Ubidecarenone [Coenzyme Q10] 200 mg PO DAILY 11/14/22 [History] Ipratropium-Albuterol Nebulize [Duoneb 0.5 mg-3 mg/3 ml Soln] 3 ml INHALATION RT-QID PRN 01/07/23 [History] Cephalexin [Keflex] 500 mg PO Q8HR 7 Days #21 cap 01/11/23 [Rx] Colchicine [Colcrys] 0.6 mg PO BID 7 Days #14 each 01/11/23 [Rx] Ipratropium-Albuterol Nebulize [Duoneb 0.5 mg-3 mg/3 ml Soln] 3 ml INHALATION RT-QID #100 each 01/11/23 [Rx] Pregabalin [Lyrica] 100 mg PO TID #3 cap 01/11/23 [Rx] predniSONE 10 mg PO DIRECTED #30 tab 01/11/23 [Rx] traMADol HCl [Ultram] 50 mg PO Q6H PRN #4 tab 01/11/23 [Rx] Follow up Appointment(s)/Referral(s): Juan Craven DO [Doctor of Osteopathic Medicine] - As Needed Parish Iverson MD [Primary Care Provider] - 1-2 days Ambulatory/Diagnostic Orders: Complete Blood Count w/diff [LAB.AMB] Time Frame: 2 Days, Location: None Selected Activity/Diet/Wound Care/Special Instructions: Patient going to ECF Activity as tolerated Continue with prednisone taper Continue with colchicine twice daily for the next 1 week Continue Accu-Cheks before meals and at bedtime and sliding scale NovoLog sliding scale 0-150 equals 0 units 151-200 equals 2 units 201-250 equals 4 units 251-300 equals 6 units 301-350 equals 8 units 351-400 equals 10 units Please notify provider if blood sugar is 400 or above Follow-up with orthopedics outpatient Follow-up with pulmonary outpatient Follow-up with cardiology outpatient Recommend repeat CBC and BMP in the next 2-3 days Discharge Disposition: TRANSFER TO SNF/ECF
[2023-01-11] MEDS ORDERED: INSULIN DETEMIR (LEVEMIR) 100 UNIT/ML SYR SQ STA (14:21)
== END 2023-01-11 16:18 | DRG 194 ==
LOC: EC 12:59 → 6NMEDSUR 16:39 → 1SOBS 01-08 05:43 → OBSVTOIN 01-08 13:12 → 5NMEDONC 01-08 17:33
PROVIDERS: ADMIT Hospitalist; ATTEND Hospitalist
PROC: 0S9D3ZZ Drainage of Left Knee Joint, Percutaneous Approach (ICD-10-PCS; principal; 2023-01-10)
DX: I13.0 Hypertensive heart and chronic kidney disease with heart failure and stage 1 through stage 4 chronic kidney disease, or unspecified chronic kidney disease (principal); G47.33 Obstructive sleep apnea (adult) (pediatric); I45.4 Nonspecific intraventricular block; I48.19 Other persistent atrial fibrillation; I50.33 Acute on chronic diastolic (congestive) heart failure; I87.8 Other specified disorders of veins; J44.1 Chronic obstructive pulmonary disease with (acute) exacerbation; J96.21 Acute and chronic respiratory failure with hypoxia; M10.9 Gout, unspecified; E87.5 Hyperkalemia; E78.5 Hyperlipidemia, unspecified; E66.01 Morbid (severe) obesity due to excess calories; M25.462 Effusion, left knee; E11.22 Type 2 diabetes mellitus with diabetic chronic kidney disease; I27.81 Cor pulmonale (chronic); E11.65 Type 2 diabetes mellitus with hyperglycemia; I48.91 Unspecified atrial fibrillation; M17.12 Unilateral primary osteoarthritis, left knee; N18.9 Chronic kidney disease, unspecified; Z96.641 Presence of right artificial hip joint; Z68.42 Body mass index [BMI] 45.0-49.9, adult; Z79.01 Long term (current) use of anticoagulants; Z79.4 Long term (current) use of insulin; Z79.51 Long term (current) use of inhaled steroids; Z79.84 Long term (current) use of oral hypoglycemic drugs; Z79.899 Other long term (current) drug therapy; Z91.148 Patient's other noncompliance with medication regimen for other reason; Z99.81 Dependence on supplemental oxygen; Z87.891 Personal history of nicotine dependence
CPT/HCPCS: 36415; 71046; 73521; 80048; 80053; 83036; 83605; 83880; 84443; 84484; 84550; 85025; 85610; 85652; 85730; 86140; 87070; 87075; 87102; 87205; 89050; 89060; 93005; 94640; 94760; 96374; 99285

== ENCOUNTER 2023-11-04 15:02 | Emergency (ER) | payer OTHER ==
--- NOTE | 2023-11-04 15:16 | ED ---
General Adult HPI - General Chief complaint: Fall Stated complaint: Fall Time Seen by Provider: 11/04/23 15:10 Source: patient, EMS, RN notes reviewed, old records reviewed Mode of arrival: EMS - History of Present Illness Initial comments: This is a 58-year-old male who presents to the emergency department stating that he was tired because he did not sleep all night last night. Patient states he also was not wearing his oxygen he got up to go get some the drink and when he turned too quickly he lost balance and fell and hit his head on the table. Patient states most of the force was taken by his hand but the head did hit the table. Patient denies loss of consciousness. Patient denies any headache patient denies neck pain patient [place] numbness or weakness. Patient denies any other injury at this time. Patient states he is not up-to-date on tetanus. Patient denies any chest pain at any time. Patient has not difficulty breathing. Patient denies being lightheaded. - Related Data Home Medications Medication Instructions Recorded Confirmed Losartan [Cozaar] 25 mg PO HS 07/09/22 01/07/23 hydrOXYzine pamoate [Vistaril] 50 mg PO HS PRN 07/09/22 01/07/23 Atorvastatin [Lipitor] 10 mg PO DAILY 08/01/22 01/07/23 Budesonide-Formot 160-4.5 Mcg 2 puff INHALATION RT-BID 08/01/22 01/07/23 [Symbicort 160-4.5 Mcg Inhaler] INSULIN ASPART (NovoLOG) [NovoLOG See Protocol SQ ACHS PRN 09/04/22 01/07/23 (formulary)] [place]-3/Dha/Epa/Fish Oil [Fish Oil 1 cap PO DAILY 11/14/22 01/07/23 1,000 mg Softgel] Spironolactone [Aldactone] 25 mg PO W/LUNCH 11/14/22 01/07/23 Ubidecarenone [Coenzyme Q10] 200 mg PO DAILY 11/14/22 01/07/23 Ipratropium-Albuterol Nebulize 3 ml INHALATION RT-QID PRN 01/07/23 01/07/23 [Duoneb 0.5 mg-3 mg/3 ml Soln] Previous Rx's Medication Instructions Recorded Apixaban [Eliquis] 5 mg PO BID #60 tab 05/13/21 Dapagliflozin Propanediol [Farxiga] 10 mg PO DAILY 30 Days #30 tab 09/10/22 Famotidine [Pepcid] 20 mg PO BID #60 tab 09/10/22 Melatonin 5 mg PO HS tab 09/10/22 Metoprolol Succinate (ER) [Toprol 100 mg PO DAILY 30 Days #30 tab 09/10/22 XL] busPIRone HCl [Buspar] 5 mg PO TID 30 Days #90 tab 09/10/22 dilTIAZem HCL [dilTIAZem HCL 24Hr 120 mg PO DAILY #0 09/10/22 ER (Xr)] Acetaminophen Tab [Tylenol] 650 mg PO Q4HR PRN tab 10/24/22 Furosemide [Lasix] 40 mg PO DAILY #30 tablet 10/24/22 Cephalexin [Keflex] 500 mg PO Q8HR 7 Days #21 cap 01/11/23 Colchicine [Colcrys] 0.6 mg PO BID 7 Days #14 each 01/11/23 Insulin Detemir (Levemir) [Levemir] 15 unit SQ BID #5 each 01/11/23 Ipratropium-Albuterol Nebulize 3 ml INHALATION RT-QID #100 each 01/11/23 [Duoneb 0.5 mg-3 mg/3 ml Soln] Pregabalin [Lyrica] 100 mg PO TID #3 cap 01/11/23 predniSONE 10 mg PO DIRECTED #30 tab 01/11/23 traMADol HCl [Ultram] 50 mg PO Q6H PRN #4 tab 01/11/23 Allergies Allergy/AdvReac Type Severity Reaction Status Date / Time No Known Allergies Allergy Verified 11/04/23 15:12 Review of Systems ROS Statement: Those systems with pertinent positive or pertinent negative responses have been documented in the HPI. ROS Other: All systems not noted in ROS Statement are negative. 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 History of Any Multi-Drug Resistant Organisms: MRSA Date of last positivie culture/infection: 11/15/22 MDRO Source:: Left Leg Past Surgical History: Hernia Repair, Joint Replacement, Orthopedic Surgery Additional Past Surgical History / Comment(s): RT ARMAND, rt foot SX, Past Anesthesia/Blood Transfusion Reactions: No Reported Reaction Past Psychological History: Depression Smoking Status: Former smoker Past Alcohol Use History: None Reported Past Drug Use History: None Reported - Past Family History Mother Family Medical History: No Reported History General Exam - General Exam Comments Initial Comments: GENERAL: Patient is well-developed and well-nourished. Patient is nontoxic and well- hydrated and is in no acute distress. ENT: Neck is soft and supple. No significant lymphadenopathy is noted. Oropharynx is clear. Moist mucous membranes. Neck has full range of motion without eliciting any pain. EYES: The sclera were anicteric and conjunctiva were pink and moist. Extraocular movements were intact and pupils were equal round and reactive to light. Eyelids were unremarkable. PULMONARY: Unlabored respirations. Good breath sounds bilaterally. No audible rales rhonchi or wheezing was noted. CARDIOVASCULAR: There is a regular rate and rhythm without any murmurs gallops or rubs. ABDOMEN: Soft and nontender with normal bowel sounds. SKIN: Patient has a scalp laceration measuring 5 cm. NEUROLOGIC: Patient is alert and oriented x3. Cranial nerves II through XII are grossly intact. Motor and sensory are also intact. Normal speech, volume and content. Symmetrical smile. MUSCULOSKELETAL: Normal extremities with adequate strength and full range of motion. LYMPHATICS: No significant lymphadenopathy is noted PSYCHIATRIC: Normal psychiatric evaluation. Course Vital Signs 11/04/23 11/04/23 15:07 16:27 Temperature 97.7 F Pulse Rate 100 64 Respiratory 20 18 Rate Blood Pressure 122/78 128/86 O2 Sat by Pulse 92 L 90 L Oximetry Procedures - Laceration Laceration #1 Consent Obtained: verbal consent Indication: laceration Site: scalp Description: linear Depth: simple, single layer Size of Sutures: other ([place]) Number of Sutures: 7 Complications: pain Patient Tolerated Procedure: well Medical Decision Making - Medical Decision Making Was pt. sent in by a medical professional or institution (, [facility], CREATIVE SERVICES PRODUCER, urgent care, hospital, or halfway...) When possible be specific @ -No Did you speak to anyone other than the patient for history (EMS, parent, family, police, friend...)? What history was obtained from this source @ -No Did you review nursing and triage notes (agree or disagree)? Why? @ -I reviewed and agree with nursing and triage notes Were old charts reviewed (outside hosp., previous admission, EMS record, old EKG, old radiological studies, urgent care reports/EKG's, halfway records)? Report findings @ -No old charts were reviewed Differential Diagnosis (chest pain, altered mental status, abdominal pain women, abdominal pain men, vaginal bleeding, weakness, fever, dyspnea, syncope, headache, dizziness, GI bleed, back pain, seizure, CVA, palpatations, mental health, musculoskeletal)? @ -Scalp laceration, cervical spine fracture, subarachnoid, subdural, skull fracture, intraparenchymal bleed, this is not an all-inclusive list EKG interpreted by me (3pts min.). @ -As above X-rays interpreted by me (1pt min.). @ -None done CT interpreted by me (1pt min.). @ -CT of the brain and C-spine showed no acute abnormality. U/S interpreted by me (1pt. min.). @ -None done What testing was considered but not performed or refused? (CT, X-rays, U/S, labs)? Why? @ -None What meds were considered but not given or refused? Why? @ -None Did you discuss the management of the patient with other professionals (professionals i.e. , PA, CREATIVE SERVICES PRODUCER, lab, RT, psych nurse, social research assistant, maintenance shop laborer, teacher, staff nuclear weapons officer, protective services case worker)? Give summary @ -No Was smoking cessation discussed for >3mins.? @ -No Was critical care preformed (if so, how long)? @ -No Were there social determinants of health that impacted care today? How? (Homelessness, low income, unemployed, alcoholism, drug addiction, transportation, low edu. Level, literacy, decrease access to med. care, group home, rehab)? @ -No Was there de-escalation of care discussed even if they declined (Discuss DNR or withdrawal of care, Hospice)? DNR status @ -No What co-morbidities impacted this encounter? (DM, HTN, Smoking, COPD, CAD, Cancer, CVA, ARF, Chemo, Hep., AIDS, mental health diagnosis, sleep apnea, morbid obesity)? @ -None Was patient admitted / discharged? Hospital course, mention meds given and route, prescriptions, significant lab abnormalities, going to OR and other pertinent info. @ -I went back and after the patient's CAT scans and discussed the case with the patient he stated he has no other complaints he feels fine I stapled his scalp laceration. I again discussed the case with the patient he insisted he just lost his balance because he was rushing to get something to drink and he has no other complaints. Undiagnosed new problem with uncertain prognosis? @ -No Drug Therapy requiring intensive monitoring for toxicity (Heparin, Nitro, Insulin, Cardizem)? @ -No Were any procedures done? @ -No Diagnosis/symptom? @ -Scalp laceration Acute, or Chronic, or Acute on Chronic? @ -Acute Uncomplicated (without systemic symptoms) or Complicated (systemic symptoms)? @ -Uncomplicated Side effects of treatment? @ -No Exacerbation, Progression, or Severe Exacerbation? @ -No Poses a threat to life or bodily function? How? (Chest pain, [place], [place], pneumonia, PE, COPD, DKA, ARF, appy, cholecystitis, CVA, Diverticulitis, Homicidal, Suicidal, threat to staff... and all critical care pts) @ -No Diagnosis/symptom? @ -Head injury Acute, or Chronic, or Acute on Chronic? @ -Acute Uncomplicated (without systemic symptoms) or Complicated (systemic symptoms)? @ -Complicated Side effects of treatment? @ -None Exacerbation, Progression, or Severe Exacerbation] @ -No Poses a threat to life or bodily function? @ -No Diagnosis/symptom? @ -Fall Acute, or Chronic, or Acute on Chronic? @ -Acute Uncomplicated (without systemic symptoms) or Complicated (systemic symptoms)? @ -Complicated Side effects of treatment? @ -None Exacerbation, Progression, or Severe Exacerbation] @ -No Poses a threat to life or bodily function? @ -No Disposition Clinical Impression: Fall, Scalp laceration, Head injury Disposition: HOME SELF-CARE Condition: Good Instructions (If sedation given, give patient instructions): Fall Prevention (ED) Is patient prescribed a controlled substance at d/c from ED?: No Referrals: Parish Iverson MD [Primary Care Provider] - 1-2 days Time of Disposition: 17:08
[2023-11-04 15:24] VITALS: TEMP 97.7
--- NOTE | 2023-11-04 16:22 | CT ---
EXAMINATION TYPE: CT brain elise june con DATE OF EXAM: 11/04/2023 COMPARISON: 11/17/22 HISTORY: pain after fall. laceration to the top of head CT DLP: 2075.[address] of the brain was performed. The ventricles, basal cisterns and sulci overlying the cerebral convexities demonstrate mild enlargem ent. There is no evidence for intracranial hemorrhage or sulcal effacement. There is decreased attenuatio n about the periventricular white matter and deep white matter of both cerebral hemispheres, compatib le with chronic small vessel ischemia. No mass effects are seen. If symptoms persist consider MRI. Osseous calvarium is intact. IMPRESSION: 1. Age related atrophic and chronic small vessel ischemic change without acute intracranial process seen at this time. CT Cervical Spine: Unenhanced CT of the cervical spine was performed with bone and soft tissue window settings submitted . Coronal and sagittal reconstruction is obtained. There is normal alignment and prevertebral soft tissues. No evidence for acute cervical fracture . Scattered degenerative disc disease and spondylosis. Biapical scarring. IMPRESSION: 1. No evidence for acute fracture or subluxation of the cervical spine.
[2023-11-04] MEDS: DIPH,PERTUS(ACELL)TETVAC-LF 0.5 ML VIAL IM ONE (16:30)
[2023-11-04 16:51] VITALS: PULSE 64; RESP 18
[2023-11-04 17:32] VITALS: BP 127/77
== END 2023-11-04 17:24 | disposition home or self-care (01) ==
LOC: EC 15:02
DX: S01.01XA Laceration without foreign body of scalp, initial encounter (principal); Z87.891 Personal history of nicotine dependence; Z23 Encounter for immunization; W22.03XA Walked into furniture, initial encounter
CPT/HCPCS: 12001; 70450; 72125; 90471; 90715; 99284

== ENCOUNTER 2023-12-12 18:41 | Inpatient (IN) | payer MEDICARE, OTHER ==
--- NOTE | 2023-12-12 19:02 | ED ---
General Adult HPI - General Chief complaint: Chest Pain Stated complaint: Chest pain; afib Time Seen by Provider: 12/12/23 18:45 Source: patient, RN notes reviewed, old records reviewed Mode of arrival: EMS Limitations: no limitations - History of Present Illness Initial comments: This is a 58-year-old male who presents to the emergency department the past medical history significant for COPD. Patient denies any diabetes. Patient states he used to be a heavy smoker. Patient also has high blood pressure and high cholesterol. Patient presents today because he is having difficulty breathing and left-sided chest pain. Patient states the chest pain started yesterday and continues to get worse today. Patient denies any headache patient has numbness weakness. Patient has any fever chills or cough. Patient denies any abdominal pain patient does state he has a skin rash all over his legs and arms and abdomen. - Related Data Home Medications Medication Instructions Recorded Confirmed Losartan [Cozaar] 25 mg PO HS 07/09/22 12/12/23 hydrOXYzine pamoate [Vistaril] 50 mg PO HS PRN 07/09/22 12/12/23 Atorvastatin [Lipitor] 10 mg PO DAILY 08/01/22 12/12/23 Apixaban [Eliquis] 5 mg PO BID 12/12/23 12/12/23 Finasteride [Proscar] 5 mg PO DAILY 12/12/23 12/12/23 QUEtiapine [SEROquel] 50 mg PO HS 12/12/23 12/12/23 Sertraline [Zoloft] 50 mg PO DAILY 12/12/23 12/12/23 Tiotropium 2.5 Mcg/Puff [Spiriva 2 puff INHALATION RT-DAILY 12/12/23 12/12/23 Respimat 2.5 Mcg] Previous Rx's Medication Instructions Recorded Dapagliflozin Propanediol [Farxiga] 10 mg PO DAILY 30 Days #30 tab 09/10/22 Famotidine [Pepcid] 20 mg PO BID #60 tab 09/10/22 Metoprolol Succinate (ER) [Toprol 100 mg PO DAILY 30 Days #30 tab 09/10/22 XL] busPIRone HCl [Buspar] 5 mg PO TID 30 Days #90 tab 09/10/22 Furosemide [Lasix] 40 mg PO DAILY #30 tablet 10/24/22 Pregabalin [Lyrica] 100 mg PO TID #3 cap 01/11/23 traMADol HCl [Ultram] 50 mg PO Q6H PRN #4 tab 01/11/23 Allergies Allergy/AdvReac Type Severity Reaction Status Date / Time No Known Allergies Allergy Verified 11/04/23 15:12 Review of Systems ROS Statement: Those systems with pertinent positive or pertinent negative responses have been documented in the HPI. ROS Other: All systems not noted in ROS Statement are negative. 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 History of Any Multi-Drug Resistant Organisms: MRSA Date of last positivie culture/infection: 11/15/22 MDRO Source:: Left Leg Past Surgical History: Hernia Repair, Joint Replacement, Orthopedic Surgery Additional Past Surgical History / Comment(s): RT ARMAND, rt foot SX, Past Anesthesia/Blood Transfusion Reactions: No Reported Reaction Past Psychological History: Depression Smoking Status: Former smoker Past Alcohol Use History: None Reported Past Drug Use History: None Reported - Past Family History Mother Family Medical History: No Reported History General Exam - General Exam Comments Initial Comments: GENERAL: Patient is well-developed and well-nourished. Patient is nontoxic and well- hydrated and is in mild distress. ENT: Neck is soft and supple. No significant lymphadenopathy is noted. Oropharynx is clear. Moist mucous membranes. Neck has full range of motion without eliciting any pain. EYES: The sclera were anicteric and conjunctiva were pink and moist. Extraocular movements were intact and pupils were equal round and reactive to light. Eyelids were unremarkable. PULMONARY: Patient has expiratory wheezing CARDIOVASCULAR: There is a regular rate and rhythm without any murmurs gallops or rubs. ABDOMEN: Soft and nontender with normal bowel sounds. No palpable organomegaly was noted. There is no palpable pulsatile mass. SKIN: Patient looks like he has diffuse folliculitis NEUROLOGIC: Patient is alert and oriented x3. Cranial nerves II through XII are grossly intact. Motor and sensory are also intact. Normal speech, volume and content. Symmetrical smile. MUSCULOSKELETAL: Normal extremities with adequate strength and full range of motion. LYMPHATICS: No significant lymphadenopathy is noted PSYCHIATRIC: Normal psychiatric evaluation. Limitations: no limitations Course Vital Signs 12/12/23 12/12/23 12/12/23 18:43 19:41 19:52 Temperature 99.1 F Pulse Rate 123 H 85 87 Respiratory 18 Rate Blood Pressure 101/82 O2 Sat by Pulse 94 L Oximetry Medical Decision Making - Medical Decision Making EKG is interpreted by myself. EKG shows atrial fibrillation with rapid ventricular response at 101 bpm QRS 124 QT interval 381 QTc is 439. Patient's EKG shows right bundle branch block. Was pt. sent in by a medical professional or institution (, [facility], [employer], urgent care, hospital, or skilled nursing...) When possible be specific @ -No Did you speak to anyone other than the patient for history (EMS, parent, family, police, friend...)? What history was obtained from this source @ -No Did you review nursing and triage notes (agree or disagree)? Why? @ -I reviewed and agree with nursing and triage notes Were old charts reviewed (outside hosp., previous admission, EMS record, old EKG, old radiological studies, urgent care reports/EKG's, skilled nursing records)? Report findings @ -No old charts were reviewed Differential Diagnosis (chest pain, altered mental status, abdominal pain women, abdominal pain men, vaginal bleeding, weakness, fever, dyspnea, syncope, headache, dizziness, GI bleed, back pain, seizure, CVA, palpatations, mental health, musculoskeletal)? @ -Differential Dyspnea: Coronary syndrome, arrhythmia, tamponade, asthma, COPD, pulmonary embolism, pneumonia, pneumothorax, pulmonary effusion, anaphylaxis, diabetic ketoacidosis, flailed chest, pulmonary contusion, diaphragmatic rupture, anemia, neuromuscul ar, this is not meant to be an all-inclusive list. EKG interpreted by me (3pts min.). @ -As above X-rays interpreted by me (1pt min.). @ -Chest x-ray shows pulmonary edema CT interpreted by me (1pt min.). @ -None done U/S interpreted by me (1pt. min.). @ -None done What testing was considered but not performed or refused? (CT, X-rays, U/S, labs)? Why? @ -None What meds were considered but not given or refused? Why? @ -None Did you discuss the management of the patient with other professionals (professionals i.e. , PA, [employer], lab, RT, psych nurse, social media community manager, administrative supervisor, teacher, court officer, immigration case worker)? Give summary @ -I spoke with the significant hospitalist they agreed admit the patient admit the patient with admitting orders Was smoking cessation discussed for >3mins.? @ -No Was critical care preformed (if so, how long)? @ -No Were there social determinants of health that impacted care today? How? (Homelessness, low income, unemployed, alcoholism, drug addiction, transportati on, low edu. Level, literacy, decrease access to med. care, prison, rehab)? @ -No Was there de-escalation of care discussed even if they declined (Discuss DNR or withdrawal of care, Hospice)? DNR status @ -No What co-morbidities impacted this encounter? (DM, HTN, Smoking, COPD, CAD, Cancer, CVA, ARF, Chemo, Hep., AIDS, mental health diagnosis, sleep apnea, morbid obesity)? @ -None Was patient admitted / discharged? Hospital course, mention meds given and route, prescriptions, significant lab abnormalities, going to OR and other pertinent info. @ -Patient was having chest pain troponins will be repeated. Initial troponin was normal. Chest x-ray showed pulmonary edema. Placed the patient on Lasix and some Nitropaste and patient will be admitted. Undiagnosed new problem with uncertain prognosis? @ -No Drug Therapy requiring intensive monitoring for toxicity (Heparin, Nitro, Insulin, Cardizem)? @ -No Were any procedures done? @ -No Diagnosis/symptom? @ -Pulmonary edema Acute, or Chronic, or Acute on Chronic? @ -Acute Uncomplicated (without systemic symptoms) or Complicated (systemic symptoms)? @ -Complicated Side effects of treatment? @ -No Exacerbation, Progression, or Severe Exacerbation? @ -No Poses a threat to life or bodily function? How? (Chest pain, USA, ND, pneumonia, PE, COPD, DKA, ARF, appy, cholecystitis, CVA, Diverticulitis, Homicidal, Suicidal, threat to staff... and all critical care pts) @ -Slightly become hypoxic and cause end Diagnosis/symptom? @ -Chest pain Acute, or Chronic, or Acute on Chronic? @ -Acute Uncomplicated (without systemic symptoms) or Complicated (systemic symptoms)? @ -Complicated Side effects of treatment? @ -None Exacerbation, Progression, or Severe Exacerbation] @ -No Poses a threat to life or bodily function? @ -This could lead to an ND and endorgan dysfunction - Lab Data Result diagrams: 12/12/23 19:13 12/12/23 19:13 Lab Results 12/12/23 12/12/23 12/12/23 Range/Units 19:13 19:13 19:13 WBC 7.9 (3.8-10.6) k/uL RBC 5.80 (4.30-5.90) m/uL Hgb 16.1 (13.0-17.5) gm/dL Hct 51.4 (39.0-53.0) % MCV 88.6 (80.0-100.0) fL MCH 27.7 (25.0-35.0) pg MCHC 31.3 (31.0-37.0) g/dL RDW 16.6 H (11.5-15.5) % Plt Count 238 (150-450) k/uL MPV 8.1 Neutrophils % 78 % Lymphocytes % 9 % Monocytes % 8 % Eosinophils % 2 % Basophils % 1 % Neutrophils # 6.2 (1.3-7.7) k/uL Lymphocytes # 0.7 L (1.0-4.8) k/uL Monocytes # 0.6 (0-1.0) k/uL Eosinophils # 0.1 (0-0.7) k/uL Basophils # 0.1 (0-0.2) k/uL Hypochromasia Slight Anisocytosis Slight PT 11.1 (10.0-12.5) sec INR 1.0 (<1.2) APTT 25.1 (22.0-30.0) sec Sodium 140 (137-145) mmol/L Potassium 4.5 (3.5-5.1) mmol/L Chloride 102 (98-107) mmol/L Carbon Dioxide 33 H (22-30) mmol/L Anion Gap 5 mmol/L BUN 35 H (9-20) mg/dL Creatinine 1.53 H (0.66-1.25) mg/dL Est GFR (CKD-EPI)AfAm 56 (>60 ml/min/1.73 sqM) Est GFR (CKD-EPI)NonAf 49 (>60 ml/min/1.73 sqM) Glucose 93 (74-99) mg/dL Plasma Lactic Acid Ankur (0.7-2.0) mmol/L Calcium 8.7 (8.4-10.2) mg/dL Magnesium 2.2 (1.6-2.3) mg/dL Total Bilirubin 1.0 (0.2-1.3) mg/dL AST 31 (17-59) U/L ALT 26 (4-49) U/L Alkaline Phosphatase 131 H (38-126) U/L Troponin I (0.000-0.034) ng/mL NT-Pro-B Natriuret Pep 3840 pg/mL Total Protein 7.4 (6.3-8.2) g/dL Albumin 4.1 (3.5-5.0) g/dL 12/12/23 12/12/23 Range/Units 19:13 19:13 WBC (3.8-10.6) k/uL RBC (4.30-5.90) m/uL Hgb (13.0-17.5) gm/dL Hct (39.0-53.0) % MCV (80.0-100.0) fL MCH (25.0-35.0) pg MCHC (31.0-37.0) g/dL RDW (11.5-15.5) % Plt Count (150-450) k/uL MPV Neutrophils % % Lymphocytes % % Monocytes % % Eosinophils % % Basophils % % Neutrophils # (1.3-7.7) k/uL Lymphocytes # (1.0-4.8) k/uL Monocytes # (0-1.0) k/uL Eosinophils # (0-0.7) k/uL Basophils # (0-0.2) k/uL Hypochromasia Anisocytosis PT (10.0-12.5) sec INR (<1.2) APTT (22.0-30.0) sec Sodium (137-145) mmol/L Potassium (3.5-5.1) mmol/L Chloride (98-107) mmol/L Carbon Dioxide (22-30) mmol/L Anion Gap mmol/L BUN (9-20) mg/dL Creatinine (0.66-1.25) mg/dL Est GFR (CKD-EPI)AfAm (>60 ml/min/1.73 sqM) Est GFR (CKD-EPI)NonAf (>60 ml/min/1.73 sqM) Glucose (74-99) mg/dL Plasma Lactic Acid Ankur 1.2 (0.7-2.0) mmol/L Calcium (8.4-10.2) mg/dL Magnesium (1.6-2.3) mg/dL Total Bilirubin (0.2-1.3) mg/dL AST (17-59) U/L ALT (4-49) U/L Alkaline Phosphatase (38-126) U/L Troponin I 0.014 (0.000-0.034) ng/mL NT-Pro-B Natriuret Pep pg/mL Total Protein (6.3-8.2) g/dL Albumin (3.5-5.0) g/dL Disposition Clinical Impression: Chest pain, Pulmonary edema Disposition: ADMITTED IP TO THIS HOSP Referrals: Parish Iverson MD [Primary Care Provider] - 1-2 days Time of Disposition: 20:43
[2023-12-12 19:33] LABS: Anisocytosis Slight; Basophils # (A) 0.1 k/uL (0-0.2); Basophils % (A) 1 %; Eosinophils # (A) 0.1 k/uL (0-0.7); Eosinophils % (A) 2 %; HCT 51.4 % (39.0-53.0); HGB 16.1 gm/dL (13.0-17.5); Hypochromasia Slight; Lymphocytes # (A) 0.7 k/uL (1.0-4.8); Lymphocytes % (A) 9 %; MCH 27.7 pg (25.0-35.0); MCHC 31.3 g/dL (31.0-37.0); MCV 88.6 fL (80.0-100.0); Mean Platelet Volume 8.1; Monocytes # (A) 0.6 k/uL (0-1.0); Monocytes % (A) 8 %; Neutrophils # (A) 6.2 k/uL (1.3-7.7); Neutrophils % (A) 78 %; Platelet Count 238 k/uL (150-450); RDW 16.6 % (11.5-15.5); WBC 7.9 k/uL (3.8-10.6)
[2023-12-12] MEDS: cefTRIAXone IN SWFI 1,000 MG/10 ML SYRINGE IVP STA (19:36)
[2023-12-12] MEDS: IPRATROPIUM-ALBUTEROL 3 ML NEB INHALATION STA (19:41)
[2023-12-12 19:42] LABS: ALT 26 U/L (4-49); AST 31 U/L (17-59); African American GFR (CKD) 56 (>60 ml/min/1.73 sqM); Albumin 4.1 g/dL (3.5-5.0); Alkaline Phosphatase 131 U/L (38-126); Anion Gap 5 mmol/L; Blood Urea Nitrogen 35 mg/dL (9-20); Calcium 8.7 mg/dL (8.4-10.2); Carbon Dioxide 33 mmol/L (22-30); Chloride 102 mmol/L (98-107); Glucose 93 mg/dL (74-99); Magnesium 2.2 mg/dL (1.6-2.3); Non-African American GFR(CKD) 49 (>60 ml/min/1.73 sqM); Potassium 4.5 mmol/L (3.5-5.1); Sodium 140 mmol/L (137-145); Total Protein 7.4 g/dL (6.3-8.2)
[2023-12-12 20:08] LABS: Partial Thromboplastin Time 25.1 sec (22.0-30.0); Prothrombin Time 11.1 sec (10.0-12.5)
[2023-12-12 20:09] LABS: NT-Pro-B-Type Natriuretic Pept 3840 pg/mL
[2023-12-12] MEDS: FUROSEMIDE 10 MG/ML 4 ML VIAL IV SCH (21:04)
[2023-12-12] MEDS: MORPHINE SULFATE 2 MG/ML SYRINGE IVP STA (21:04)
[2023-12-12] MEDS: FAMOTIDINE 20 MG TAB PO SCH (21:05)
[2023-12-12] MEDS: APIXABAN 5 MG TAB PO SCH (21:05)
[2023-12-12] MEDS: ASPIRIN 325 MG TAB PO STA (21:05)
--- NOTE | 2023-12-12 21:57 | XR ---
EXAMINATION: XR chest 2V: 12/12/2023 8:24 PM CLINICAL INDICATION: difficulty breathing TECHNIQUE: Departmental protocol COMPARISON: 01/07/2023 FINDINGS/IMPRESSION: The overlying soft tissues are prominent. There is evidence of mild silhouetting of the pulmonary vas culature bilaterally by a fine reticular pattern of increased attenuation, findings which can correla te with a clinical diagnosis of mild interstitial phase pulmonary edema. The pleural spaces are negative. The cardiac silhouette is enlarged, unchanged. The skeletal structures and soft tissues are negative for acute findings.
[2023-12-12] MEDS: QUEtiapine 50 MG TAB PO SCH (22:04)
[2023-12-12] MEDS: LOSARTAN 25 MG TAB PO SCH (22:04)
[2023-12-12] MEDS: busPIRone HCl 5 MG TAB PO SCH (22:04)
[2023-12-12] MEDS: PREGABALIN 100 MG CAP PO SCH (22:06)
[2023-12-12] MEDS: NITROGLYCERIN OINT 1 INCH/GM PACKET TOPICAL SCH (23:53)
[2023-12-13] MEDS: traMADol 50 MG TAB PO PRN (02:30)
[2023-12-13] MEDS: METOPROLOL SUCCINATE (ER) 100 MG TAB.ER.24H PO SCH (08:44)
[2023-12-13] MEDS: FINASTERIDE 5 MG TAB PO SCH (08:44)
[2023-12-13] MEDS: ASPIRIN 325 MG TAB PO SCH (08:44)
[2023-12-13] MEDS: ATORVASTATIN 10 MG TAB PO SCH (08:44)
[2023-12-13] MEDS: SERTRALINE 50 MG TAB PO SCH (08:44)
[2023-12-13] MEDS: IPRATROPIUM 0.5 MG/2.5 ML NEBU INHALATION SCH (09:53)
[2023-12-13] MEDS: MORPHINE SULFATE 2 MG/ML SYRINGE IVP STA (10:01)
[2023-12-13] MEDS ORDERED: polyethylene glycoL 3350 17 GM POWD.PACK PO PRN (13:03)
--- NOTE | 2023-12-13 13:10 | P.HPIM ---
History of Present Illness Six 58-year-old pleasant male with known history of COPD on oxygen came in with complaints of shortness of breath orthopnea patient quit smoking used to be a heavy smoker, found to be in atrial fibrillation and congestive heart failure with pulm edema BNP of 3000 and previous echocardiogram showing EF of 50% with diastolic dysfunction. Patient denies any fever or chills chest x-ray did not show any pneumonia patient does not have any leukocytosis. Patient has significant bilateral lower extremity edema. And bilateral lower extremity venous stasis patient does have sleep apnea was unable to use CPAP machine because of some in surance issues. Patient is also complaining of left shoulder pain unable to get to the shoulder I will obtain a shoulder x-ray on the left side. Patient also complaining of pleuritic chest pain, will be obtaining a D-dimer. REVIEW OF SYSTEMS: CONSTITUTIONAL: No fever, no malaise, no fatigue. HEENT: No recent visual problems or hearing problems. Denied any sore throat. CARDIOVASCULAR: no palpitations, no syncope. PULMONARY: no cough, no hemoptysis. GASTROINTESTINAL: No diarrhea, no nausea, no vomiting, no abdominal pain. NEUROLOGICAL: No headaches, no weakness, no numbness. HEMATOLOGICAL: Denies any bleeding or petechiae. GENITOURINARY: Denies any burning micturition, frequency, or urgency. MUSCULOSKELETAL/RHEUMATOLOGICAL: Denies any joint pain, swelling, or any muscle pain. ENDOCRINE: Denies any polyuria or polydipsia. The rest of the 14-point review of systems is negative. PHYSICAL EXAMINATION: GENERAL: The patient is alert and oriented x3, not in any acute distress. Well developed, well nourished. Obese HEENT: Pupils are round and equally reacting to light. EOMI. No scleral icterus. No conjunctival pallor. Normocephalic, atraumatic. No pharyngeal erythema. No thyromegaly. CARDIOVASCULAR: S1 and S2 present. No murmurs, rubs, or gallops. PULMONARY: Chest is clear to auscultation, no wheezing or crackles. ABDOMEN: Soft, nontender, nondistended, normoactive bowel sounds. No palpable organomegaly. MUSCULOSKELETAL: No joint swelling or deformity. EXTREMITIES: No cyanosis, clubbing, patient does have bilateral lower extremity edema NEUROLOGICAL: Gross neurological examination did not reveal any focal deficits. SKIN: Chronic venous stasis dermatosis Assessment and plan -Atrial fibrillation paroxysmal rapid ventricular rate patient remains on Cardiz em cardiology evaluated the patient patient is on Eliquis which was recently -Congestive failure chronic diastolic function with acute exacerbation patient was started on IV Lasix -Pleuritic chest pain will obtain a D-dimer -Left shoulder arthropathy: Orthopedic surgery consultation along with x-ray COPD without any acute exacerbation -Chronic kidney disease stage III patient's present creatinine is at his baseline -Hyperlipidemia -Hypertension -Sleep apnea -Depression for above-mentioned chronic medical problems patient will be resumed on appropriate home medications DVT prophylaxis: On anticoagulation with Eliquis 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 History of Any Multi-Drug Resistant Organisms: MRSA Date of last positivie culture/infection: 11/15/22 MDRO Source:: Left Leg Past Surgical History: Hernia Repair, Joint Replacement, Orthopedic Surgery Additional Past Surgical History / Comment(s): RT ARMAND, rt foot SX, Past Anesthesia/Blood Transfusion Reactions: No Reported Reaction Past Psychological History: Depression Smoking Status: Former smoker Past Alcohol Use History: None Reported Past Drug Use History: None Reported - Past Family History Mother Family Medical History: No Reported History Medications and Allergies Home Medications Medication Instructions Recorded Confirmed Type Losartan [Cozaar] 25 mg PO HS 07/09/22 12/12/23 History hydrOXYzine pamoate [Vistaril] 50 mg PO HS PRN 07/09/22 12/12/23 History Atorvastatin [Lipitor] 10 mg PO DAILY 08/01/22 12/12/23 History Dapagliflozin Propanediol [Farxiga] 10 mg PO DAILY 30 Days #30 tab 09/10/22 12/12/23 Rx Famotidine [Pepcid] 20 mg PO BID #60 tab 09/10/22 12/12/23 Rx Metoprolol Succinate (ER) [Toprol 100 mg PO DAILY 30 Days #30 tab 09/10/22 12/12/23 Rx XL] busPIRone HCl [Buspar] 5 mg PO TID 30 Days #90 tab 09/10/22 12/12/23 Rx Furosemide [Lasix] 40 mg PO DAILY #30 tablet 10/24/22 12/12/23 Rx Pregabalin [Lyrica] 100 mg PO TID #3 cap 01/11/23 12/12/23 Rx traMADol HCl [Ultram] 50 mg PO Q6H PRN #4 tab 01/11/23 12/12/23 Rx Apixaban [Eliquis] 5 mg PO BID 12/12/23 12/12/23 History Finasteride [Proscar] 5 mg PO DAILY 12/12/23 12/12/23 History QUEtiapine [SEROquel] 50 mg PO HS 12/12/23 12/12/23 History Sertraline [Zoloft] 50 mg PO DAILY 12/12/23 12/12/23 History Tiotropium 2.5 Mcg/Puff [Spiriva 2 puff INHALATION RT-DAILY 12/12/23 12/12/23 History Respimat 2.5 Mcg] Allergies Allergy/AdvReac Type Severity Reaction Status Date / Time No Known Allergies Allergy Verified 11/04/23 15:12 Physical Exam Vitals: Vital Signs Temp Pulse Pulse Resp BP BP Pulse Ox 12/13/23 12:43 120 H 12/13/23 12:32 118 H 12/13/23 10:05 120 H 12/13/23 09:53 120 H 12/13/23 08:00 124 H 16 137/100 12/13/23 06:00 104 H 20 110/71 97 12/13/23 03:28 97 18 135/76 94 L 12/13/23 01:05 114 H 20 112/77 95 12/12/23 22:03 106 H 24 120/76 95 12/12/23 19:52 87 12/12/23 19:41 85 12/12/23 18:43 99.1 F 123 H 18 101/82 94 L Intake and Output 12/12/23 12/13/23 12/13/23 22:59 06:59 14:59 Output Total 750 Balance -750 Output: Urine 750 Other: Weight 163.293 kg Results CBC & Chem 7: 12/12/23 19:13 12/12/23 19:13 Labs: Abnormal Lab Results - Last 24 Hours (Table) 12/12/23 12/12/23 Range/Units 19:13 19:13 RDW 16.6 H (11.5-15.5) % Lymphocytes # 0.7 L (1.0-4.8) k/uL Carbon Dioxide 33 H (22-30) mmol/L BUN 35 H (9-20) mg/dL Creatinine 1.53 H (0.66-1.25) mg/dL Alkaline Phosphatase 131 H (38-126) U/L
[2023-12-13] MEDS: HYDROcodone/APAP 10-325MG 1 EACH TAB PO PRN (13:47)
[2023-12-13] MEDS: FUROSEMIDE 10 MG/ML 10 ML VIAL IV SCH (15:59)
[2023-12-13] MEDS: DAPAGLIFLOZIN PROPANEDIOL 10 MG TABLET PO SCH (16:00)
--- NOTE | 2023-12-13 17:06 | P.CRDCN ---
History of Present Illness Consult date: 12/13/23 History of present illness: HISTORY OF PRESENTING ILLNESS 58-year-old with known history of ablation in [address] Dickerson, morbid obesity, COPD on oxygen, prior history of diastolic heart failure, presented to hospital because of increased shortness of breath. On admission he was found to be in atrial fibrillation with RVR with right bundle branch block. Comparing his older ECGs, it appears that patient was in atrial fibrillation and 2022 as well. Admission ECG shows A-fib heart rate 101, right bundle branch block with no significant resting ST changes suggestive of acute ischemia CXR shows bilateral pulmonary congestion. , Hemoglobin 16, BUN 35, creatinine 1.5, creatinine appears to be baseline, troponin was negative, BNP elevated at 3800. REVIEW OF SYSTEMS 14 point review of system is negative except what is mentioned above in HPI. PHYSICAL EXAMINATION Vital signs reviewed. Head: Normocephalic. Eyes: Sclerae nonicteric. Neck: Brisk carotid upstroke, no jugular venous distention. Lungs: Clear to auscultation. Heart: Regular rate and rhythm, S1-S2, no S3, no murmur or rub. Abdomen: Soft nontender, positive bowel sounds. Extremities: No edema, intact distal pulses. Neuro: Alert, oritented, no focal deficits. Detailed neuro exam was not per formed. ASSESSMENT Acute diastolic heart failure exacerbation A-fib RVR, currently rate controlled Right bundle branch block Prior history of a flutter ablation [address] Dickerson Acute COPD exacerbation CKD stage II Morbid obesity Suspected obstructive sleep apnea Tobacco abuse Concerns of noncompliance Cardiac testing Lexiscan Jul 2022 did not show any reversible ischemia Echo EF 55%, no major valvular abnormality reported PLAN Continue aspirin 81 mg, Eliquis 5 mg twice daily. Lipitor 40 mg daily Lasix 60 mg IV twice daily Metoprolol XL 100 mg daily Losartan 25 mg Once patient is transition from IV Lasix to p.o., add eplerenone and SGLT2. He would benefit from GLP analog on outpatient basis. Weight reduction, stop smoking. Treat MARIANNE if not already treated He would benefit from rhythm control for his atrial fibrillation on outpatient basis. Acute COPD exacerbation management as per the primary team Jason Randolph MD, FACC, RPVI Thank you for allowing [facility] to participate in this patient's care. Feel free to reach out in case of any followup questions. 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 History of Any Multi-Drug Resistant Organisms: MRSA Date of last positivie culture/infection: 11/15/22 MDRO Source:: Left Leg Past Surgical History: Hernia Repair, Joint Replacement, Orthopedic Surgery Additional Past Surgical History / Comment(s): RT ARMAND, rt foot SX, Past Anesthesia/Blood Transfusion Reactions: No Reported Reaction Past Psychological History: Depression Smoking Status: Former smoker Past Alcohol Use History: None Reported Additional Past Alcohol Use History / Comment(s): QUIT SMOKING 2021 Past Drug Use History: None Reported - Past Family History Mother Family Medical History: No Reported History Medications and Allergies Home Medications Medication Instructions Recorded Confirmed Type Losartan [Cozaar] 25 mg PO HS 07/09/22 12/12/23 History hydrOXYzine pamoate [Vistaril] 50 mg PO HS PRN 07/09/22 12/12/23 History Atorvastatin [Lipitor] 10 mg PO DAILY 08/01/22 12/12/23 History Dapagliflozin Propanediol [Farxiga] 10 mg PO DAILY 30 Days #30 tab 09/10/22 12/12/23 Rx Famotidine [Pepcid] 20 mg PO BID #60 tab 09/10/22 12/12/23 Rx Metoprolol Succinate (ER) [Toprol 100 mg PO DAILY 30 Days #30 tab 09/10/22 12/12/23 Rx XL] busPIRone HCl [Buspar] 5 mg PO TID 30 Days #90 tab 09/10/22 12/12/23 Rx Furosemide [Lasix] 40 mg PO DAILY #30 tablet 10/24/22 12/12/23 Rx Pregabalin [Lyrica] 100 mg PO TID #3 cap 01/11/23 12/12/23 Rx traMADol HCl [Ultram] 50 mg PO Q6H PRN #4 tab 01/11/23 12/12/23 Rx Apixaban [Eliquis] 5 mg PO BID 12/12/23 12/12/23 History Finasteride [Proscar] 5 mg PO DAILY 12/12/23 12/12/23 History QUEtiapine [SEROquel] 50 mg PO HS 12/12/23 12/12/23 History Sertraline [Zoloft] 50 mg PO DAILY 12/12/23 12/12/23 History Tiotropium 2.5 Mcg/Puff [Spiriva 2 puff INHALATION RT-DAILY 12/12/23 12/12/23 History Respimat 2.5 Mcg] Allergies Allergy/AdvReac Type Severity Reaction Status Date / Time No Known Allergies Allergy Verified 11/04/23 15:12 Physical Exam Vitals: Vital Signs Temp Pulse Pulse Resp BP BP Pulse Ox 12/13/23 16:59 108 H 12/13/23 16:51 106 H 12/13/23 16:00 105 H 16 114/73 12/13/23 12:43 120 H 12/13/23 12:32 118 H 12/13/23 12:00 110 H 16 103/74 12/13/23 10:05 120 H 12/13/23 09:53 120 H 12/13/23 08:00 124 H 16 137/100 12/13/23 06:00 104 H 20 110/71 97 12/13/23 03:28 97 18 135/76 94 L 12/13/23 01:05 114 H 20 112/77 95 12/12/23 22:03 106 H 24 120/76 95 12/12/23 19:52 87 12/12/23 19:41 85 12/12/23 18:43 99.1 F 123 H 18 101/82 94 L Intake and Output 12/13/23 12/13/23 12/13/23 06:59 14:59 22:59 Output Total 750 1000 Balance -750 -1000 Output: Urine 750 1000 Results 12/12/23 19:13 12/12/23 19:13 Cardiac Enzymes 12/12/23 12/12/23 Range/Units 19:13 19:13 AST 31 (17-59) U/L Troponin I 0.014 (0.000-0.034) ng/mL Coagulation 12/12/23 Range/Units 19:13 PT 11.1 (10.0-12.5) sec APTT 25.1 (22.0-30.0) sec CBC 12/12/23 Range/Units 19:13 WBC 7.9 (3.8-10.6) k/uL RBC 5.80 (4.30-5.90) m/uL Hgb 16.1 (13.0-17.5) gm/dL Hct 51.4 (39.0-53.0) % Plt Count 238 (150-450) k/uL Comprehensive Metabolic Panel 12/12/23 Range/Units 19:13 Sodium 140 (137-145) mmol/L Potassium 4.5 (3.5-5.1) mmol/L Chloride 102 (98-107) mmol/L Carbon Dioxide 33 H (22-30) mmol/L BUN 35 H (9-20) mg/dL Creatinine 1.53 H (0.66-1.25) mg/dL Glucose 93 (74-99) mg/dL Calcium 8.7 (8.4-10.2) mg/dL AST 31 (17-59) U/L ALT 26 (4-49) U/L Alkaline Phosphatase 131 H (38-126) U/L Total Protein 7.4 (6.3-8.2) g/dL Albumin 4.1 (3.5-5.0) g/dL Current Medications Generic Name Dose Route Start Last Admin Trade Name Freq PRN Reason Stop Dose Admin Hydrocodone Bitart/Acetaminophen 1 each 12/13/23 13:03 12/13/23 13:47 Hydrocodone/Apap 10-325mg 1 Each Tab PO 1 each Q6HR PRN Administration Pain Apixaban 5 mg 12/12/23 21:00 12/13/23 08:44 Apixaban 5 Mg Tab PO 5 mg BID OBI Administration Protocol Aspirin 325 mg 12/13/23 09:00 12/13/23 08:44 Aspirin 325 Mg Tab PO 325 mg DAILY OBI Administration Atorvastatin Calcium 10 mg 12/13/23 09:00 12/13/23 08:44 Atorvastatin 10 Mg Tab PO 10 mg DAILY OBI Administration Buspirone HCl 5 mg 12/12/23 22:00 12/13/23 16:00 Buspirone Hcl 5 Mg Tab PO 5 mg TID OBI Administration Famotidine 20 mg 12/13/23 21:00 Famotidine 20 Mg Tab PO BID OBI Finasteride 5 mg 12/13/23 09:00 12/13/23 08:44 Finasteride 5 Mg Tab PO 5 mg DAILY OBI Administration Furosemide 60 mg 12/13/23 16:00 12/13/23 15:59 Furosemide 10 Mg/Ml 10 Ml Vial IV 60 mg Q12HR OBI Administration Ipratropium [place] 0.5 mg 12/13/23 08:00 12/13/23 16:51 Ipratropium 0.5 Mg/2.5 Ml Nebu INHALATION 0.5 mg RT-QID OBI Administration Losartan Potassium 25 mg 12/12/23 21:00 12/12/23 22:04 Losartan 25 Mg Tab PO 25 mg HS OBI Administration Metoprolol Succinate 100 mg 12/13/23 09:00 12/13/23 08:44 Metoprolol Succinate (Er) 100 Mg Tab.Er.24h PO 100 mg DAILY OBI Administration Nitroglycerin 1 inch 12/13/23 00:00 12/13/23 16:00 Nitroglycerin Oint 1 Inch/Gm Packet TOPICAL 12/14/23 00:01 1 inch Q6HR OBI Administration Polyethylene Glycol 17 gm 12/13/23 13:03 Polyethylene Glycol 3350 17 Gm Powd.Pack PO DAILY PRN Constipation Pregabalin 100 mg 12/12/23 22:00 12/13/23 16:00 Pregabalin 100 Mg Cap PO 100 mg TID OBI Administration Quetiapine Fumarate 50 mg 12/12/23 21:00 12/12/23 22:04 Quetiapine 50 Mg Tab PO 50 mg HS OBI Administration Sertraline HCl 50 mg 12/13/23 09:00 12/13/23 08:44 Sertraline 50 Mg Tab PO 50 mg DAILY OBI Administration Tramadol HCl 50 mg 12/12/23 20:49 12/13/23 02:30 Tramadol 50 Mg Tab PO 50 mg Q6H PRN Administration Pain Intake and Output 12/13/23 12/13/23 12/13/23 06:59 14:59 22:59 Output Total 750 1000 Balance -750 -1000 Output: Urine 750 1000 12/12/23 19:13 12/12/23 19:13
[2023-12-13] MEDS: FAMOTIDINE 20 MG TAB PO SCH (20:46)
--- NOTE | 2023-12-13 20:53 | XR ---
EXAMINATION TYPE: XR shoulder complete LT DATE OF EXAM: 12/13/2023 COMPARISON: NONE HISTORY: Pain TECHNIQUE: Three views are submitted. FINDINGS: The osseous structures are intact. There is no acute fracture or dislocation. The AC joint hypertro phic arthropathy. Mild glenohumeral joint arthropathy. IMPRESSION: 1. No acute fracture. 2. Arthropathy.
[2023-12-14 01:57] LABS: Glucose,Whole Blood 185 mg/dL (70-110)
[2023-12-14] MEDS: DILTIAZEM 125 MG in SODIUM CHLORIDE 0.9% 100 ML IV SCH (03:11)
--- NOTE | 2023-12-14 11:12 | P.PN ---
Progress Note - Text Progress Note Date: 12/14/23 This is a 58-year-old male who is admitted with cardiac issues. We are consulted for left shoulder pain. I presented to the emergency department to evaluate the patient in room 21. The patient, however, is unresponsive at this time. A team has assessed the patient and he is currently being observed. I am unable to get a proper history or examination of the patient at this time. I did review his x-rays which revealed no acute fracture or bony abnormality. He does have mild glenohumeral arthritis. I spoke with the nurse regarding further evaluation once the patient is more alert and oriented. Please contact our office when the patient is available for further exam.
[2023-12-14] MEDS: METOPROLOL SUCCINATE (ER) 50 MG TAB.ER.24H PO STA (13:21)
[2023-12-14 13:35] LABS: African American GFR (CKD) 49 (>60 ml/min/1.73 sqM); Anion Gap 7 mmol/L; Blood Urea Nitrogen 40 mg/dL (9-20); Calcium 8.3 mg/dL (8.4-10.2); Carbon Dioxide 29 mmol/L (22-30); Chloride 102 mmol/L (98-107); Glucose 137 mg/dL (74-99); Magnesium 2.1 mg/dL (1.6-2.3); Non-African American GFR(CKD) 43 (>60 ml/min/1.73 sqM); Potassium 4.6 mmol/L (3.5-5.1); Sodium 138 mmol/L (137-145)
--- NOTE | 2023-12-14 13:56 | CA ---
Transthoracic Echo Report Name: Meir Abraham Age: 58 Gender: M : 1965 Exam Date: 12/14/2023 13:01 Exam Location: [facility] Ht (in): 72 Wt (lb): 360 Ordering Physician: Jason Randolph MD Attending/Referring Phys: Milieu Coordinator Sintia Mcnulty RDCS Procedure CPT: Indications: chf, pulmo htn, afib Cardiac Hx: Technical Quality: Technically difficult study, Poor Contrast 1: Definity Total Dose (mL): 2 Contrast 2: Total Dose (mL): MEASUREMENTS (Male / Female) Normal Values 2D ECHO LV Diastolic Diameter PLAX 4.9 cm 4.2 - 5.9 / 3.9 - 5.3 cm LV Systolic Diameter PLAX 3.6 cm IVS Diastolic Thickness 1.6 cm 0.6 - 1.0 / 0.6 - 0.9 cm LVPW Diastolic Thickness 1.9 cm 0.6 - 1.0 / 0.6 - 0.9 cm LV Relative Wall Thickness 0.7 RV Internal Dim ED PLAX 3.6 cm LA Systolic Diameter LX 6.3 cm 3.0 - 4.0 / 2.7 - 3.8 cm M-MODE Aortic Root Diameter MM 4.0 cm LA Systolic Diameter MM 5.4 cm LA Ao Ratio MM 1.4 AV Cusp Separation MM 2.6 cm DOPPLER TR Peak Velocity 217.0 cm/s TR Peak Gradient 18.8 mmHg Right Ventricular Systolic Press 28.8 mmHg FINDINGS Left Ventricle Left ventricular ejection fraction is estimated at 60-65 %. Moderately increased septal wall thickness.Normal left ventricular systolic function with no obvious regional wall motion abnormalities. Right Ventricle Right ventricle not well visualized. Right ventricular systolic pressure within normal limits. Right Atrium Right atrium not well visualized. Moderate right atrial dilatation. Left Atrium Severely increased left atrial diameter. Mitral Valve Structurally normal mitral valve. Trace to mild mitral regurgitation. Aortic Valve Trileaflet aortic valve. No aortic valve stenosis or regurgitation. Tricuspid Valve Structurally normal tricuspid valve. Trace to mild tricuspid regurgitation. Pulmonic Valve Structurally normal pulmonic valve. Mild pulmonic regurgitation. Pericardium Prominent epicardial fat. No pericardial or pleural effusion. Aorta Mildly dilated aortic annulus. CONCLUSIONS Technically difficult study, Poor. Left ventricular ejection fraction is estimated at 60-65 %. Moderate concentric LVH No obvious regional wall motion abnormality Severe LA dilatation Will to assess diastolic dysfunction due to A-fib Significant valvular dysfunction Epicardial fat Previewed by: Dr Jason Randolph (Electronically Signed) Final Date: 14 December 2023 13:55
--- NOTE | 2023-12-14 14:47 | P.PN ---
Subjective Progress Note Date: 12/14/23 Six 58-year-old pleasant male with known history of COPD on oxygen came in with complaints of shortness of breath orthopnea patient quit smoking used to be a heavy smoker, found to be in atrial fibrillation and congestive heart failure with pulm edema BNP of 3000 and previous echocardiogram showing EF of 50% with diastolic dysfunction. Patient denies any fever or chills chest x-ray did not show any pneumonia patient does not have any leukocytosis. Patient has significant bilateral lower extremity edema. And bilateral lower extremity venous stasis patient does have sleep apnea was unable to use CPAP machine because of some insurance issues. Patient is also complaining of left shoulder pain unable to get to the shoulder I will obtain a shoulder x-ray on the left side. Patient also complaining of pleuritic chest pain, will be obtaining a D-dimer. 12/14/2023 Patient is evaluated today in follow-up in the ER pending bed on the medical floor. Patient is having episodes of myoclonic jerking however his mentation is more awake and alert than he was over the night. Apparently patient was not a team due to episodes of unresponsiveness and was placed on the BiPAP. He is currently being treated for volume overload remains on IV Lasix 60 mg every 12 hours. His BUN today is 40 creatinine of 1.71. He has had about 2.4 mL of urine output in last 24 hours. X-ray of the left shoulder reveals no acute fracture there is arthropathy. Pending evaluation by orthopedics. His heart rate has also increased up to 20s overnight was started on IV Cardizem infusion. Rate is now in the 90s today and he is taken off the Cardizem. He remains in atrial fibrillation. Echocardiogram reveals LV ejection fraction at 60 to 65% with moderate concentric left ventricular hypertrophy. There is severe left atrial dilation. Unable to assess diastolic dysfunction due to the A-fib. There is significant valvular dysfunction with trace to mild tricuspid regurgitation mild pulmonic regurgitation trace to mild mitral vegetation. Review of Systems Constitutional: Denied any fatigue denied any fever. Cardio vascular: denied any chest pain, palpitations Gastrointestinal: denied any nausea, vomiting, diarrhea Pulmonary: Denied any shortness of breath cough Neurologic denied any new focal deficits All inpatient medications were reviewed and appropriate changes in these medications as dictated in the interval history and assessment and plan. PHYSICAL EXAMINATION: GENERAL: The patient is alert and oriented x3, not in any acute distress. Well developed, well nourished. Obese HEENT: Pupils are round and equally reacting to light. EOMI. No scleral icterus. No conjunctival pallor. Normocephalic, atraumatic. No pharyngeal erythema. No thyromegaly. CARDIOVASCULAR: S1 and S2 present. No murmurs, rubs, or gallops. PULMONARY: Chest is clear to auscultation, no wheezing or crackles. ABDOMEN: Soft, nontender, nondistended, normoactive bowel sounds. No palpable organomegaly. MUSCULOSKELETAL: No joint swelling or deformity. EXTREMITIES: No cyanosis, clubbing, patient does have bilateral lower extremity edema NEUROLOGICAL: Gross neurological examination did not reveal any focal deficits. Is having myoclonic jerking SKIN: Chronic venous stasis dermatosis Assessment and plan -Atrial fibrillation paroxysmal rapid ventricular rate patient was continued on IV Cardizem overnight has has been discontinued. He is anticoagulated with Eliquis. -Congestive failure chronic diastolic function with acute exacerbation patient was started on IV Lasix monitor renal function and strict intake and output monitoring. -Pleuritic chest pain will obtain a D-dimer which is elevated at 0.96 althought patient is anticoagulaed with eliquis and he states he has been compliant with medications. -Altered Mental status and acute metabolic encephalopathy with myoclonus -Left shoulder arthropathy: Orthopedic surgery consultation x-ray was reviewed and reveals no acute fracture. -COPD without any acute exacerbation -Chronic kidney disease stage III patient's present creatinine is at his baseline -Hyperlipidemia -Hypertension -Sleep apnea -Depression for above-mentioned chronic medical problems patient will be resumed on appropriate home medications DVT prophylaxis: On anticoagulation with Eliquis The impression and plan of care has been dictated by Meri Galvan Nurse Practitioner as directed. Dr. Denisse MD I have performed a history and physical examination and medical decision making of this patient, discussed the same with the dictator, and agree with the dictators assessment and plan as written, documented as a scribe. Based on total visit time, I have performed more than 50% of this visit. Objective - Vital Signs Vital signs: Vital Signs Temp 98.1 F 12/14/23 14:24 Pulse 90 12/14/23 14:24 Resp 22 12/14/23 14:24 BP 144/96 12/14/23 14:24 Pulse Ox 97 12/14/23 14:24 FiO2 50 12/14/23 09:33 Intake & Output 12/13/23 12/14/23 12/14/23 18:59 06:59 18:59 Output Total 1000 700 Balance -1000 -700 Output: Urine 1000 700 Other: Voiding Method Bedside Commode Urinal - Labs CBC & Chem 7: 12/12/23 19:13 12/14/23 12:48 Labs: Abnormal Lab Results - Last 24 Hours (Table) 12/14/23 12/14/23 Range/Units 01:56 12:48 BUN 40 H (9-20) mg/dL Creatinine 1.71 H (0.66-1.25) mg/dL Glucose 137 H (74-99) mg/dL POC Glucose (mg/dL) 185 H (70-110) mg/dL Calcium 8.3 L (8.4-10.2) mg/dL Microbiology - Last 24 Hours (Table) 12/12/23 19:30 Blood Culture - Preliminary Blood 12/12/23 19:13 Blood Culture - Preliminary Blood Assessment and Plan Time with Patient: Less than 30
--- NOTE | 2023-12-14 14:48 | P.PN ---
Subjective Progress Note Date: 12/14/23 Progress note December 14, 2023 Patient is seen and examined at bedside this a.m. He continues to be in mild respiratory distress. Last night he went into A-fib RVR for which she was s tarted on Cardizem drip. This morning he is in rate controlled atrial fibrillation. His labs came back late but it is noted that his BUN is 40, creatinine is 1.7. Yesterday creatinine was 1.5. He had around 600 cc of urine output with 60 mg of IV Lasix HISTORY OF PRESENTING ILLNESS 58-year-old with known history of ablation [place] [address] Dickerson, morbid obesity, COPD on oxygen, prior history of diastolic heart failure, presented to hospital because of increased shortness of breath. On admission he was found to be in atrial fibrillation with RVR with right bundle branch block. Comparing his older ECGs, it appears that patient was in atrial fibrillation and 2022 as well. Admission ECG shows A-fib heart rate 101, right bundle branch block with no significant resting ST changes suggestive of acute ischemia CXR shows bilateral pulmonary congestion. , Hemoglobin 16, BUN 35, creatinine 1.5, creatinine appears to be baseline, troponin was negative, BNP elevated at 3800. PHYSICAL EXAMINATION Vital signs reviewed. Head: Normocephalic. Eyes: Sclerae nonicteric. Neck: Brisk carotid upstroke, mildly elevated jugular venous distention. Lungs: Clear to auscultation. Heart: Irregularly irregular, no significant murmurs appreciated. Abdomen: Soft nontender, Extremities: 2+ pitting edema in bilateral extremity, scratch cortez on bilateral lower extremity Neuro: Alert, oritented, no focal deficits. Detailed neuro exam was not performed. ASSESSMENT Acute diastolic heart failure exacerbation A-fib RVR, currently rate controlled Right bundle branch block Prior history of a flutter ablation [address] Dickerson Acute COPD exacerbation DEBRA on CKD stage II Morbid obesity Suspected obstructive sleep apnea Tobacco abuse Concerns of noncompliance Cardiac testing Lexiscan Jul 2022 did not show any reversible ischemia Echo EF 55%, no major valvular abnormality reported Echo from November 2023 shows EF of 55%, no major valvular abnormality. PLAN Continue aspirin 81 mg, Eliquis 5 mg twice daily. Lipitor 40 mg daily Due to uptrending creatinine, reduce Lasix to 40 mg twice daily Discontinue Cardizem drip, increase metoprolol succinate to 150 mg daily Losartan due to DEBRA Once patient is transition from IV Lasix to p.o., add ARB, eplerenone and SGLT2. He would benefit from GLP analog on outpatient basis. Weight reduction, stop smoking. Treat MARIANNE if not already treated He would benefit from rhythm control for his atrial fibrillation on outpatient basis. Objective - Vital Signs Vital signs: Vital Signs Temp 98.1 F 12/14/23 14:24 Pulse 90 12/14/23 14:24 Resp 22 12/14/23 14:24 BP 144/96 12/14/23 14:24 Pulse Ox 97 12/14/23 14:24 FiO2 50 12/14/23 09:33 Intake & Output 12/13/23 12/14/23 12/14/23 18:59 06:59 18:59 Output Total 1000 700 Balance -1000 -700 Output: Urine 1000 700 Other: Voiding Method Bedside Commode Urinal - Labs CBC & Chem 7: 12/12/23 19:13 12/14/23 12:48 Labs: Abnormal Lab Results - Last 24 Hours (Table) 12/14/23 12/14/23 Range/Units 01:56 12:48 BUN 40 H (9-20) mg/dL Creatinine 1.71 H (0.66-1.25) mg/dL Glucose 137 H (74-99) mg/dL POC Glucose (mg/dL) 185 H (70-110) mg/dL Calcium 8.3 L (8.4-10.2) mg/dL Microbiology - Last 24 Hours (Table) 12/12/23 19:30 Blood Culture - Preliminary Blood 12/12/23 19:13 Blood Culture - Preliminary Blood
[2023-12-14] MEDS: TAMSULOSIN 0.4 MG CAP.ER.24H PO SCH (15:13)
[2023-12-15 07:29] LABS: African American GFR (CKD) 40 (>60 ml/min/1.73 sqM); Anion Gap 4 mmol/L; Blood Urea Nitrogen 54 mg/dL (9-20); Carbon Dioxide 34 mmol/L (22-30); Chloride 98 mmol/L (98-107); Glucose 108 mg/dL (74-99); Magnesium 2.3 mg/dL (1.6-2.3); Non-African American GFR(CKD) 35 (>60 ml/min/1.73 sqM); Potassium 4.9 mmol/L (3.5-5.1); Sodium 136 mmol/L (137-145)
--- NOTE | 2023-12-15 08:43 | P.CNOR ---
History of Present Illness - [facility] Consult date: 12/15/23 History of present illness: The patient is a 58-year-old male with multiple medical problems presently admitted to internal medicine. Orthopedics has been consulted for left shoulder pain. I met with and evaluated the patient this morning. The patient states that he has had several weeks of progressively worsening shoulder pain. He describes it as an ache. He denies any injury to the left shoulder. He says it is worse with motion. He reports that he had prior hip arthritis ultimately requiring hip replacement and that his shoulder pain feels similar to how his hip felt prior to his hip replacement. 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 History of Any Multi-Drug Resistant Organisms: MRSA Year Discovered:: 11/15/22 MDRO Source:: Left Leg Past Surgical History: Hernia Repair, Joint Replacement, Orthopedic Surgery Additional Past Surgical History / Comment(s): RT ARMAND, rt foot SX, Past Anesthesia/Blood Transfusion Reactions: No Reported Reaction Past Psychological History: Depression Smoking Status: Former smoker Past Alcohol Use History: None Reported Additional Past Alcohol Use History / Comment(s): QUIT SMOKING 2021 Past Drug Use History: None Reported - Past Family History Mother Family Medical History: No Reported History Medications and Allergies Home Medications Medication Instructions Recorded Confirmed Type Losartan [Cozaar] 25 mg PO HS 07/09/22 12/12/23 History hydrOXYzine pamoate [Vistaril] 50 mg PO HS PRN 07/09/22 12/12/23 History Atorvastatin [Lipitor] 10 mg PO DAILY 08/01/22 12/12/23 History Dapagliflozin Propanediol [Farxiga] 10 mg PO DAILY 30 Days #30 tab 09/10/2211/29 Rx Famotidine [Pepcid] 20 mg PO BID #60 tab 09/10/22 12/12/23 Rx Metoprolol Succinate (ER) [Toprol 100 mg PO DAILY 30 Days #30 tab 09/10/22 12/12/23 Rx XL] busPIRone HCl [Buspar] 5 mg PO TID 30 Days #90 tab 09/10/22 12/12/23 Rx Furosemide [Lasix] 40 mg PO DAILY #30 tablet 10/24/22 12/12/23 Rx Pregabalin [Lyrica] 100 mg PO TID #3 cap 01/11/23 12/12/23 Rx traMADol HCl [Ultram] 50 mg PO Q6H PRN #4 tab 01/11/23 12/12/23 Rx Apixaban [Eliquis] 5 mg PO BID 12/12/23 12/12/23 History Finasteride [Proscar] 5 mg PO DAILY 12/12/23 12/12/23 History QUEtiapine [SEROquel] 50 mg PO HS 12/12/23 12/12/23 History Sertraline [Zoloft] 50 mg PO DAILY 12/12/23 12/12/23 History Tiotropium 2.5 Mcg/Puff [Spiriva 2 puff INHALATION RT-DAILY 12/12/23 12/12/23 History Respimat 2.5 Mcg] Allergies Allergy/AdvReac Type Severity Reaction Status Date / Time No Known Allergies Allergy Verified 11/04/23 15:12 Physical Examination The patient is sitting up at bedside. He is alert and able to answer questions. He is morbidly obese. A focused exam of the left upper extremity was conducted. On inspection there is no overlying erythema or scars over the shoulder. He has minimal pain with passive range of motion of the shoulder with the arm at the side. He has active forward elevation to 90, abduction to 100, and internal rotation to his back pocket. He has some pain with empty can testing but does have good resisted strength. Results X-rays the left shoulder show glenohumeral arthritis - Labs Labs: Abnormal Lab Results - Last 24 Hours (Table) 12/14/23 12/15/23 Range/Units 12:48 06:27 Sodium 136 L (137-145) mmol/L Carbon Dioxide 34 H (22-30) mmol/L BUN 40 H 54 H (9-20) mg/dL Creatinine 1.71 H 2.03 H (0.66-1.25) mg/dL Glucose 137 H 108 H (74-99) mg/dL Calcium 8.3 L 8.0 L (8.4-10.2) mg/dL Microbiology - Last 24 Hours (Table) 12/12/23 19:30 Blood Culture - Preliminary Blood 12/12/23 19:13 Blood Culture - Preliminary Blood H & H 12/12/23 Range/Units 19:13 Hgb 16.1 (13.0-17.5) gm/dL Hct 51.4 (39.0-53.0) % Coagulation 12/12/23 Range/Units 19:13 INR 1.0 (<1.2) Result Diagrams: 12/12/23 19:13 12/15/23 06:27 Assessment and Plan Assessment: Left shoulder arthritis Multiple medical issues BMI 48 Plan: The patient's complaints, physical exam, and x-ray findings are most consistent with arthritis. I would recommend symptomatic treatment while in the hospital and will defer choice of pain medication to the primary service given his multiple medical problems. We discussed that a sling to immobilize the shoulder for short period of time may help. Following discharge the patient can follow- up in our office with one of our shoulder specialists. I have no plans for further workup or treatment while in-house. Thank you for the consultation and please call with any questions or concerns. Time with Patient: Greater than 30
[2023-12-15] MEDS: FUROSEMIDE 10 MG/ML 4 ML VIAL IV SCH ×2 (09:15→21:27)
[2023-12-15] MEDS: METOPROLOL SUCCINATE (ER) 100 MG TAB.ER.24H PO SCH (09:16)
--- NOTE | 2023-12-15 11:13 | US ---
EXAMINATION TYPE: US kidneys/renal and bladder DATE OF EXAM: 12/15/2023 COMPARISON: NONE CLINICAL INDICATION: Male, 58 years old with history of DEBRA; DEBRA EXAM MEASUREMENTS: Right Kidney: 11.5 x 5.4 x 6.2 cm Left Kidney: 13.1 x 5.5 x 6.7 cm Right Kidney: No hydronephrosis or masses seen Left Kidney: No hydronephrosis or masses seen Bladder: Not fully distended, possible wall thickening Bilateral Jets seen: No Incidental finding- enlarged spleen There is no evidence for hydronephrosis at this point in time. No nephrolithiasis is seen. No kye s are identified. The urinary bladder is anechoic. Bilateral ureteral jets are seen. IMPRESSION: No evidence for obstructive uropathy. Cortical medullary differentiation is maintained.
--- NOTE | 2023-12-15 14:18 | P.PN ---
Subjective Progress Note Date: 12/15/23 Six 58-year-old pleasant male with known history of COPD on oxygen came in with complaints of shortness of breath orthopnea patient quit smoking used to be a heavy smoker, found to be in atrial fibrillation and congestive heart failure with pulm edema BNP of 3000 and previous echocardiogram showing EF of 50% with diastolic dysfunction. Patient denies any fever or chills chest x-ray did not show any pneumonia patient does not have any leukocytosis. Patient has significant bilateral lower extremity edema. And bilateral lower extremity venous stasis patient does have sleep apnea was unable to use CPAP machine because of some insurance issues. Patient is also complaining of left shoulder pain unable to get to the shoulder I will obtain a shoulder x-ray on the left side. Patient also complaining of pleuritic chest pain, will be obtaining a D-dimer. 12/14/2023 Patient is evaluated today in follow-up in the ER pending bed on the medical floor. Patient is having episodes of myoclonic jerking however his mentation is more awake and alert than he was over the night. Apparently patient was not a team due to episodes of unresponsiveness and was placed on the BiPAP. He is currently being treated for volume overload remains on IV Lasix 60 mg every 12 hours. His BUN today is 40 creatinine of 1.71. He has had about 2.4 mL of urine output in last 24 hours. X-ray of the left shoulder reveals no acute fracture there is arthropathy. Pending evaluation by orthopedics. His heart rate has also increased up to 20s overnight was started on IV Cardizem infusion. Rate is now in the 90s today and he is taken off the Cardizem. He remains in atrial fibrillation. Echocardiogram reveals LV ejection fraction at 60 to 65% with moderate concentric left ventricular hypertrophy. There is severe left atrial dilation. Unable to assess diastolic dysfunction due to the A-fib. There is significant valvular dysfunction with trace to mild tricuspid regurgitation mild pulmonic regurgitation trace to mild mitral vegetation. 12/15/2023 Patient is evaluated today in follow up on the medical floor. He is less confused. Reports feeling less short of breath. He has been wearing the BiPAP. Continued on IV lasix which was decreased to 40 mg [id number] as renal function is increasing. Up to 2.03 today. Renal ultrasound done with no evidence of obstructive uropathy. Orthopedics has evaluated the patient for his left shoulder pain and felt that this was likely arthritic changes and they are recommending a shoulder sling. Review of Systems Constitutional: Denied any fatigue denied any fever. Cardio vascular: denied any chest pain, palpitations Gastrointestinal: denied any nausea, vomiting, diarrhea Pulmonary: Denied any shortness of breath cough Neurologic denied any new focal deficits All inpatient medications were reviewed and appropriate changes in these medications as dictated in the interval history and assessment and plan. PHYSICAL EXAMINATION: GENERAL: The patient is alert and oriented x3, not in any acute distress. Well developed, well nourished. Obese HEENT: Pupils are round and equally reacting to light. EOMI. No scleral icterus. No conjunctival pallor. Normocephalic, atraumatic. No pharyngeal erythema. No thyromegaly. CARDIOVASCULAR: S1 and S2 present. No murmurs, rubs, or gallops. PULMONARY: Chest is clear to auscultation, no wheezing or crackles. ABDOMEN: Soft, nontender, nondistended, normoactive bowel sounds. No palpable organomegaly. MUSCULOSKELETAL: No joint swelling or deformity. Limited range of motion to the left shoulder secondary to pain. EXTREMITIES: No cyanosis, clubbing, patient does have bilateral lower extremity edema NEUROLOGICAL: Gross neurological examination did not reveal any focal deficits. Is having myoclonic jerking SKIN: Chronic venous stasis dermatosis Assessment and plan -Atrial fibrillation paroxysmal rapid ventricular rate patient was continued on IV Cardizem overnight has has been discontinued. He is anticoagulated with Eliquis. Rate is now controlled. -Congestive failure chronic diastolic function with acute exacerbation patient was started on IV Lasix monitor renal function and strict intake and output monitoring. -Pleuritic chest pain will obtain a D-dimer which is elevated at 0.96 althought patient is anticoagulated with eliquis and he states he has been compliant with medications. -Altered Mental status and acute metabolic encephalopathy with myoclonus improving -Left shoulder arthropathy: Orthopedic surgery consultation x-ray was reviewed and reveals no acute fracture. Likely due to arthritic changes will recommend a shoulder sling and Voltaren cream. -COPD without any acute exacerbation -Chronic kidney disease stage III with acute kidney injury due to diuresis and lasix dose has been decreased. Repeat BMP in the AM. -Hyperlipidemia -Hypertension -Sleep apnea need social work follow up as patient has insurance issues getting his CPAP supplies outpatient -Depression for above-mentioned chronic medical problems patient will be resumed on appropriate home medications DVT prophylaxis: On anticoagulation with Eliquis The impression and plan of care has been dictated by Meri Galvan, Nurse Practitioner as directed. Dr. Denisse MD I have performed a history and physical examination and medical decision making of this patient, discussed the same with the dictator, and agree with the dictators assessment and plan as written, documented as a scribe. Based on total visit time, I have performed more than 50% of this visit. Objective - Vital Signs Vital signs: Vital Signs Temp 97.1 F L 12/15/23 12:00 Pulse 84 12/15/23 13:42 Resp 16 12/15/23 13:42 BP 125/84 12/15/23 12:00 Pulse Ox 96 12/15/23 12:00 FiO2 50 12/14/23 20:59 Intake & Output 12/14/23 12/15/23 12/15/23 18:59 06:59 18:59 Intake Total 360 1440 1640 Output Total 700 525 Balance -309 685 1823 Weight 161 kg Intake: Oral 360 1440 1640 Output: Urine 700 25 Post Void Residual 500 Other: Voiding Method Bedside Commode Bedside Commode Bedside Commode Urinal Urinal Urinal - Labs CBC & Chem 7: 12/12/23 19:13 12/15/23 06:27 Labs: Abnormal Lab Results - Last 24 Hours (Table) 12/15/23 Range/Units 06:27 Sodium 136 L (137-145) mmol/L Carbon Dioxide 34 H (22-30) mmol/L BUN 54 H (9-20) mg/dL Creatinine 2.03 H (0.66-1.25) mg/dL Glucose 108 H (74-99) mg/dL Calcium 8.0 L (8.4-10.2) mg/dL Microbiology - Last 24 Hours (Table) 12/12/23 19:30 Blood Culture - Preliminary Blood 12/12/23 19:13 Blood Culture - Preliminary Blood Assessment and Plan Time with Patient: Less than 30
--- NOTE | 2023-12-15 15:07 | P.PN ---
Subjective Progress Note Date: 12/15/23 Progress note December 14, 2023 Patient is seen and examined at bedside this a.m. He continues to be in mild respiratory distress. Last night he went into A-fib RVR for which she was s tarted on Cardizem drip. This morning he is in rate controlled atrial fibrillation. His labs came back late but it is noted that his BUN is 40, creatinine is 1.7. Yesterday creatinine was 1.5. He had around 600 cc of urine output with 60 mg of IV Lasix December 15, 2023, BP 125/84, heart rate 80s to 90s beats a minute, atrial fibrillation, Rate controlled atrial fibrillation On BiPAP support, still appears volume overloaded however with IV Lasix creatinine has jumped from 1.7-2. On admission creatinine was 1.3. Patient was retaining urine last night. He was straight cathetered once and since then he has had good urine output responding well to Lasix. HISTORY OF PRESENTING ILLNESS 58-year-old with known history of ablation [place] [address] Dickerson, morbid obesity, COPD on oxygen, prior history of diastolic heart failure, presented to hospital because of increased shortness of breath. On admission he was found to be in atrial fibrillation with RVR with right bu ndle branch block. Comparing his older ECGs, it appears that patient was in atrial fibrillation and 2022 as well. Admission ECG shows A-fib heart rate 101, right bundle branch block with no sig nificant resting ST changes suggestive of acute ischemia CXR shows bilateral pulmonary congestion. , Hemoglobin 16, BUN 35, creatinine 1.5, creatinine appears to be baseline, troponin was negative, BNP elevated at 3800. PHYSICAL EXAMINATION Vital signs reviewed. Head: Normocephalic. Eyes: Sclerae nonicteric. Neck: Brisk carotid upstroke, mildly elevated jugular venous distention. Lungs: Clear to auscultation. Heart: Irregularly irregular, no significant murmurs appreciated. Abdomen: Soft nontender, Extremities: 2+ pitting edema in bilateral extremity, scratch cortez on bilateral lower extremity Neuro: Alert, oritented, no focal deficits. Detailed neuro exam was not performed. ASSESSMENT Acute diastolic heart failure exacerbation A-fib RVR, currently rate controlled Right bundle branch block Prior history of a flutter ablation [address] Dickerson Acute COPD exacerbation DEBRA on CKD stage II Morbid obesity Suspected obstructive sleep apnea Tobacco abuse Concerns of noncompliance Cardiac testing Lexiscan Jul 2022 did not show any reversible ischemia Echo EF 55%, no major valvular abnormality reported Echo from November 2023 shows EF of 55%, no major valvular abnormality. PLAN Continue aspirin 81 mg, Eliquis 5 mg twice daily. Lipitor 40 mg daily Due to uptrending creatinine, reduce Lasix to 40 mg twice daily Discontinue Cardizem drip, increase metoprolol succinate to 150 mg daily Losartan due to DEBRA Once patient is transition from IV Lasix to p.o., add ARB, eplerenone and SGLT2. He would benefit from GLP analog on outpatient basis. Weight reduction, stop smoking. Treat MARIANNE if not already treated He would benefit from rhythm control for his atrial fibrillation on outpatient basis. Objective - Vital Signs Vital signs: Vital Signs Temp 97.1 F L 12/15/23 12:00 Pulse 84 12/15/23 13:42 Resp 16 12/15/23 13:42 BP 125/84 12/15/23 12:00 Pulse Ox 96 12/15/23 12:00 FiO2 50 12/14/23 20:59 Intake & Output 12/14/23 12/15/23 12/15/23 18:59 06:59 18:59 Intake Total 360 1440 1640 Output Total 700 525 Balance -286 079 3177 Weight 161 kg Intake: Oral 360 1440 1640 Output: Urine 700 25 Post Void Residual 500 Other: Voiding Method Bedside Commode Bedside Commode Bedside Commode Urinal Urinal Urinal - Labs CBC & Chem 7: 12/12/23 19:13 12/15/23 06:27 Labs: Abnormal Lab Results - Last 24 Hours (Table) 12/15/23 Range/Units 06:27 Sodium 136 L (137-145) mmol/L Carbon Dioxide 34 H (22-30) mmol/L BUN 54 H (9-20) mg/dL Creatinine 2.03 H (0.66-1.25) mg/dL Glucose 108 H (74-99) mg/dL Calcium 8.0 L (8.4-10.2) mg/dL Microbiology - Last 24 Hours (Table) 12/12/23 19:30 Blood Culture - Preliminary Blood 12/12/23 19:13 Blood Culture - Preliminary Blood
[2023-12-15] MEDS: DICLOFENAC SODIUM GEL 50 GM TUBE TOPICAL SCH (15:23)
[2023-12-15 18:19] LABS: Appearance,Urine Clear (Clear); Bacteria,Urine Rare /hpf; Bilirubin,Urine Negative (Negative); Blood,Urine Small (Negative); Color,Urine Colorless; Glucose,Urine (UA) 2+ (Negative); Hyaline Casts,Urine 5 /lpf (0-2); Ketones,Urine Negative (Negative); Leukocyte Esterase,Urine Negative (Negative); Mucus,Urine Rare /hpf; Nitrite,Urine Negative (Negative); Protein,Urine Negative (Negative); Specific Gravity,Urine 1.008 (1.001-1.035); Squamous Epithelial Cell,Urine <1 /hpf (0-4); Urobilinogen,Urine <2.0 mg/dL (<2.0); WBC,Urine 1 /hpf (0-5)
[2023-12-16] MEDS: FAMOTIDINE 20 MG TAB PO SCH (08:55)
[2023-12-16 09:56] LABS: African American GFR (CKD) 72 (>60 ml/min/1.73 sqM); Anion Gap 4 mmol/L; Blood Urea Nitrogen 45 mg/dL (9-20); Calcium 8.5 mg/dL (8.4-10.2); Carbon Dioxide 34 mmol/L (22-30); Chloride 98 mmol/L (98-107); Glucose 175 mg/dL (74-99); Non-African American GFR(CKD) 63 (>60 ml/min/1.73 sqM); Sodium 136 mmol/L (137-145)
[2023-12-16 09:59] LABS: Potassium 5.1 mmol/L (3.5-5.1)
--- NOTE | 2023-12-16 11:27 | CDI ---
Documentation Clarification Form Date: 12/16/2023 11:01:12 AM From: Joan Schmidt RN, CCDS Phone: [phone] Admit Date: 12/12/2023 08:44:00 PM Patient Name: Meir Abraham Visit Number: [id number] Discharge Date: ATTENTION: The Clinical Documentation Specialists (CDI) and [facility] Coding Staff appreciate your assistance in clarifying documentation. Please respond to the clarification below the line at the bottom and electronically sign. The CDI & [facility] Coding staff will review the response and follow-up if needed. Please note: Queries are made part of the Legal Health Record. If you have any questions, please contact the author of this message via ITS. Dr. Meri Galvan Your patient has known history of COPB on oxygen came in with complaints of shortness of breath orthopnea per H/P. Based on this information and the findings below, is there an additional diagnosis that is clinically appropriate for this patient? History/Risk Factors: Atrial Fibrillation, Asthma, Heart Failure, COPD, Hyperlipidemia, Hypertension, Sleep Apnea/CPAP/BIPAP, Tobacco use: Former smoker Home oxygen: Uses C PAP Machine Clinical Indicators: 58-year-old male with known history of COPD on oxygen came in with complaints of shortness of breath orthopnea patient quit smoking used to be a heavy smoker, found to be in atrial fibrillation and congestive heart failure with pulm edema. 12/11 VS: 101/82 123 18 99.1 94% 2/L NC 12/12 VS: (19:44) 93% 5 L NC 12/13 VS: (15:08) 135/80 59 16 93% 6 L NC Lung/Breathing assessment: patient has expiratory wheezing (per ED assessment) Treatment: Monitor O2 Sat's (Titrate) Atrovent Inhalers RT-QID 12/12-12/15 Lasix 40 MG IV Q 8 HRS 12/11-12/12 Lasix 60 MG IV Q 12 12/12-12/13 then 40 MG IV Q 12 12/14-12/15 Is there an additional diagnosis that is clinically appropriate for this patient? [ ] Acute Hypoxic Respiratory Failure [ ] Acute Hypercapnic Respiratory Failure [x ] Acute on Chronic Hypoxic Respiratory Failure [ ] Chronic Hypoxic Respiratory Failure [ ] Other Diagnosis, please specify [ ] Unable to determine (Template Last Revised: July 2023) MTDD
[2023-12-16 14:09] VITALS: BMI 47.8
--- NOTE | 2023-12-16 14:42 | P.PN ---
Subjective Progress Note Date: 12/16/23 HISTORY OF PRESENTING ILLNESS 58-year-old with known history of ablation [place] [address] Dickerson, morbid ob esity, COPD on oxygen, prior history of diastolic heart failure, presented to hospital because of increased shortness of breath. On admission he was found to be in atrial fibrillation with RVR with right bundle branch block. Comparing his older ECGs, it appears that patient was in atrial fibrillation and 2022 as well. Admission ECG shows A-fib heart rate 101, right bundle branch block with no significant resting ST changes suggestive of acute ischemia CXR shows bilateral pulmonary congestion. Hemoglobin 16, BUN 35, creatinine 1.5, creatinine appears to be baseline, troponin was negative, BNP elevated at 3800. Cardiac testing Lexiscan Jul 2022 did not show any reversible ischemia Echo EF 55%, no major valvular abnormality reported Echo from November 2023 shows EF of 55%, no major valvular abnormality. December 14, 2023 Patient is seen and examined at bedside this a.m. He continues to be in mild respiratory distress. Last night he went into A-fib RVR for which she was started on Cardizem drip. This morning he is in rate controlled atrial fibrillation. His labs came back late but it is noted that his BUN is 40, creatinine is 1.7. Yesterday creatinine was 1.5. He had around 600 cc of urine output with 60 mg of IV Lasix December 15, 2023, BP 125/84, heart rate 80s to 90s beats a minute, atrial fibrillation, Rate controlled atrial fibrillation On BiPAP support, still appears volume overloaded however with IV Lasix creatinine has jumped from 1.7-2. On admission creatinine was 1.3. Patient was retaining urine last night. He was straight cathetered once and since then he has had good urine output responding well to Lasix. 12/15 Patient has been maintained on IV Lasix 40 mg every 12 hours. Blood pressure 158/91, heart rate 84, pulse ox 92% on 6 L nasal cannula. Repeat blood work reveals sodium 136, potassium 5.1, BUN 45 creatinine 1.25. Telemetry is atrial fibrillation with controlled rate. Patient has intermittent confusion and is on and off BiPAP. PHYSICAL EXAMINATION Vital signs reviewed. Head: Normocephalic. Eyes: Sclerae nonicteric. Neck: Brisk carotid upstroke, mildly elevated jugular venous distention. Lungs: Clear to auscultation. Heart: Irregularly irregular, no significant murmurs appreciated. Abdomen: Soft nontender, Extremities: 2+ pitting edema in bilateral extremity, scratch cortez on bilateral lower extremity Neuro: Alert, oritented, no focal deficits. Detailed neuro exam was not performed. ASSESSMENT Acute diastolic heart failure exacerbation A-fib RVR, currently rate controlled Right bundle branch block Prior history of a flutter ablation [address] Dickerson Acute COPD exacerbation DEBRA on CKD stage II Morbid obesity Suspected obstructive sleep apnea Tobacco abuse Concerns of noncompliance PLAN Continue Eliquis 5 mg twice daily. Lipitor 40 mg daily Continue IV Lasix 40 mg every 12 hours for another 24 hours Continue increased dose of metoprolol succinate 150 mg daily Hold losartan due to DEBRA Start patient on Farxiga 10 mg daily Repeat BNP and BMP in the morning Nurse practitioner note has been reviewed, I agree with documented findings and plan of care. Patient was seen and examined. Objective - Vital Signs Vital signs: Vital Signs Temp 98.3 F 12/16/23 11:38 Pulse 84 12/16/23 11:38 Resp 16 12/16/23 11:38 BP 158/91 12/16/23 11:38 Pulse Ox 97 12/16/23 11:38 FiO2 50 12/16/23 07:50 Intake & Output 12/15/23 12/16/23 12/16/23 18:59 06:59 18:59 Intake Total 2084 960 360 Output Total 1335 826 5935 Balance 334 685 -940 Weight 160 kg 160 kg Intake: Oral 2084 960 360 Output: Urine 2314 602 0764 Other: Voiding Method Bedside Commode Bedside Commode Bedside Commode Urinal Urinal Urinal - Labs CBC & Chem 7: 12/12/23 19:13 12/16/23 09:17 Labs: Abnormal Lab Results - Last 24 Hours (Table) 12/15/23 12/16/23 12/16/23 Range/Units 13:00 09:17 09:20 Sodium 136 L (137-145) mmol/L Carbon Dioxide 34 H (22-30) mmol/L BUN 45 H (9-20) mg/dL Glucose 175 H (74-99) mg/dL Hemoglobin A1c 7.0 H (<=6.0) % Urine Glucose (UA) 2+ H (Negative) Urine Blood Small H (Negative) Urine Bacteria Rare H (None) /hpf Hyaline Casts 5 H (0-2) /lpf Urine Mucus Rare H (None) /hpf Microbiology - Last 24 Hours (Table) 12/12/23 19:30 Blood Culture - Preliminary Blood 12/12/23 19:13 Blood Culture - Preliminary Blood
[2023-12-16] MEDS ORDERED: DEXTROSE 50% SYRINGE 50 ML IVP PRN ×2 (15:27)
[2023-12-16] MEDS: INSULIN ASPART (NovoLOG) 100 UNIT/ML VIAL SQ SCH (18:05)
--- NOTE | 2023-12-16 19:55 | P.PN ---
Subjective Progress Note Date: 12/16/23 Six 58-year-old pleasant male with known history of COPD on oxygen came in with complaints of shortness of breath orthopnea patient quit smoking used to be a heavy smoker, found to be in atrial fibrillation and congestive heart failure with pulm edema BNP of 3000 and previous echocardiogram showing EF of 50% with diastolic dysfunction. Patient denies any fever or chills chest x-ray did not show any pneumonia patient does not have any leukocytosis. Patient has significant bilateral lower extremity edema. And bilateral lower extremity venous stasis patient does have sleep apnea was unable to use CPAP machine because of some insurance issues. Patient is also complaining of left shoulder pain unable to get to the shoulder I will obtain a shoulder x-ray on the left side. Patient also complaining of pleuritic chest pain, will be obtaining a D-dimer. 12/14/2023 Patient is evaluated today in follow-up in the ER pending bed on the medical floor. Patient is having episodes of myoclonic jerking however his mentation is more awake and alert than he was over the night. Apparently patient was not a team due to episodes of unresponsiveness and was placed on the BiPAP. He is currently being treated for volume overload remains on IV Lasix 60 mg every 12 hours. His BUN today is 40 creatinine of 1.71. He has had about 2.4 mL of urine output in last 24 hours. X-ray of the left shoulder reveals no acute fracture there is arthropathy. Pending evaluation by orthopedics. His heart rate has also increased up to 20s overnight was started on IV Cardizem infusion. Rate is now in the 90s today and he is taken off the Cardizem. He remains in atrial fibrillation. Echocardiogram reveals LV ejection fraction at 60 to 65% with moderate concentric left ventricular hypertrophy. There is severe left atrial dilation. Unable to assess diastolic dysfunction due to the A-fib. There is significant valvular dysfunction with trace to mild tricuspid regurgitation mild pulmonic regurgitation trace to mild mitral vegetation. 12/15/2023 Patient is evaluated today in follow up on the medical floor. He is less confused. Reports feeling less short of breath. He has been wearing the BiPAP. Continued on IV lasix which was decreased to 40 mg [id number] as renal function is increasing. Up to 2.03 today. Renal ultrasound done with no evidence of obstructive uropathy. Orthopedics has evaluated the patient for his left shoulder pain and felt that this was likely arthritic changes and they are recommending a shoulder sling. 12/16/2023 Patient evaluated in follow up . Remains on BiPAP at HS and during the day. Discussed with case management who has confirmed with medical supplier that patient has been non compliant with his CPAP in the past and not following up regarding the equipment. For this reason he is unable to obtain CPAP or supplies and insurance will no longer pay for one for him. Patient does state that he understands now the need for CPAP but unfortunately he will be unable to obtain one for outpatient use at this time. Will need to follow up with CM and pulmonary for this tomorrow. Patient is having continued episodes of confusion although overall his mentation has improved. He is continued on IV lasix 40 mg Q12 hours. Creatinine down to 1.23 today. Review of Systems Constitutional: Denied any fatigue denied any fever. Cardio vascular: denied any chest pain, palpitations Gastrointestinal: denied any nausea, vomiting, diarrhea Pulmonary: Denied any shortness of breath cough Neurologic denied any new focal deficits All inpatient medications were reviewed and appropriate changes in these medications as dictated in the interval history and assessment and plan. PHYSICAL EXAMINATION: GENERAL: The patient is alert and oriented x3, not in any acute distress. Well developed, well nourished. Obese HEENT: Pupils are round and equally reacting to light. EOMI. No scleral icterus. No conjunctival pallor. Normocephalic, atraumatic. No pharyngeal erythema. No thyromegaly. CARDIOVASCULAR: S1 and S2 present. No murmurs, rubs, or gallops. PULMONARY: Chest is clear to auscultation, no wheezing or crackles. ABDOMEN: Soft, nontender, nondistended, normoactive bowel sounds. No palpable organomegaly. MUSCULOSKELETAL: No joint swelling or deformity. Limited range of motion to the left shoulder secondary to pain. EXTREMITIES: No cyanosis, clubbing, patient does have bilateral lower extremity edema NEUROLOGICAL: Gross neurological examination did not reveal any focal deficits. Is having myoclonic jerking SKIN: Chronic venous stasis dermatosis Assessment and plan -Atrial fibrillation paroxysmal rapid ventricular rate patient was continued on IV Cardizem overnight has has been discontinued. He is anticoagulated with Eliquis. Rate is now controlled. -Congestive failure chronic diastolic function with acute exacerbation patient was started on IV Lasix monitor renal function and strict intake and output monitoring. -Pleuritic chest pain will obtain a D-dimer which is elevated at 0.96 althought patient is anticoagulated with eliquis and he states he has been compliant with medications. -Altered Mental status and acute metabolic encephalopathy with myoclonus improving -Left shoulder arthropathy: Orthopedic surgery consultation x-ray was reviewed and reveals no acute fracture. Likely due to arthritic changes will recommend a shoulder sling and Voltaren cream. -COPD without any acute exacerbation -Chronic kidney disease stage III with acute kidney injury due to diuresis and lasix dose has been decreased. Repeat BMP in the AM. -Hyperlipidemia -Hypertension -Sleep apnea need social work follow up as patient has insurance issues getting his CPAP supplies outpatient -Depression for above-mentioned chronic medical problems patient will be resumed on appropriate home medications DVT prophylaxis: On anticoagulation with Eliquis The impression and plan of care has been dictated by Meri Galvan, Nurse Practitioner as directed. Dr. Denisse MD I have performed a history and physical examination and medical decision making of this patient, discussed the same with the dictator, and agree with the dictators assessment and plan as written, documented as a scribe. Based on total visit time, I have performed more than 50% of this visit. Objective - Vital Signs Vital signs: Vital Signs Temp 98.3 F 12/16/23 11:38 Pulse 84 12/16/23 11:38 Resp 16 12/16/23 11:38 BP 158/91 12/16/23 11:38 Pulse Ox 97 12/16/23 11:38 FiO2 50 12/16/23 07:50 Intake & Output 12/15/23 12/16/23 12/16/23 18:59 06:59 18:59 Intake Total 2084 960 360 Output Total 9875 158 5185 Balance 334 685 -940 Weight 160 kg 160 kg Intake: Oral 2084 960 360 Output: Urine 3962 334 9502 Other: Voiding Method Bedside Commode Bedside Commode Bedside Commode Urinal Urinal Urinal - Labs CBC & Chem 7: 12/12/23 19:13 12/16/23 09:17 Labs: Abnormal Lab Results - Last 24 Hours (Table) 12/15/23 12/16/23 12/16/23 Range/Units 13:00 09:17 09:20 Sodium 136 L (137-145) mmol/L Carbon Dioxide 34 H (22-30) mmol/L BUN 45 H (9-20) mg/dL Glucose 175 H (74-99) mg/dL Hemoglobin A1c 7.0 H (<=6.0) % Urine Glucose (UA) 2+ H (Negative) Urine Blood Small H (Negative) Urine Bacteria Rare H (None) /hpf Hyaline Casts 5 H (0-2) /lpf Urine Mucus Rare H (None) /hpf Microbiology - Last 24 Hours (Table) 12/12/23 19:30 Blood Culture - Preliminary Blood 12/12/23 19:13 Blood Culture - Preliminary Blood Assessment and Plan Time with Patient: Less than 30
[2023-12-16 20:11] LABS: Glucose,Whole Blood 178 mg/dL (70-110)
[2023-12-17 06:01] LABS: Glucose,Whole Blood 206 mg/dL (70-110)
[2023-12-17] MEDS: DAPAGLIFLOZIN PROPANEDIOL 10 MG TABLET PO SCH (09:41)
[2023-12-17 11:19] LABS: Glucose,Whole Blood 153 mg/dL (70-110)
[2023-12-17 12:24] LABS: African American GFR (CKD) 71 (>60 ml/min/1.73 sqM); Blood Urea Nitrogen 40 mg/dL (9-20); Calcium 8.6 mg/dL (8.4-10.2); Chloride 96 mmol/L (98-107); Glucose 136 mg/dL (74-99); Non-African American GFR(CKD) 62 (>60 ml/min/1.73 sqM); Potassium 5.1 mmol/L (3.5-5.1); Sodium 139 mmol/L (137-145)
[2023-12-17 12:26] LABS: NT-Pro-B-Type Natriuretic Pept 1480 pg/mL
[2023-12-17 12:31] LABS: Anion Gap 7 mmol/L
[2023-12-17 12:33] LABS: Carbon Dioxide 36 mmol/L (22-30)
--- NOTE | 2023-12-17 13:44 | P.PN ---
Subjective Progress Note Date: 12/17/23 HISTORY OF PRESENTING ILLNESS 58-year-old with known history of ablation [place] [address] Dickerson, morbid ob esity, COPD on oxygen, prior history of diastolic heart failure, presented to hospital because of increased shortness of breath. On admission he was found to be in atrial fibrillation with RVR with right bundle branch block. Comparing his older ECGs, it appears that patient was in atrial fibrillation and 2022 as well. Admission ECG shows A-fib heart rate 101, right bundle branch block with no significant resting ST changes suggestive of acute ischemia CXR shows bilateral pulmonary congestion. Hemoglobin 16, BUN 35, creatinine 1.5, creatinine appears to be baseline, troponin was negative, BNP elevated at 3800. Cardiac testing Lexiscan Jul 2022 did not show any reversible ischemia Echo EF 55%, no major valvular abnormality reported Echo from November 2023 shows EF of 55%, no major valvular abnormality. December 14, 2023 Patient is seen and examined at bedside this a.m. He continues to be in mild respiratory distress. Last night he went into A-fib RVR for which she was started on Cardizem drip. This morning he is in rate controlled atrial fibrillation. His labs came back late but it is noted that his BUN is 40, creatinine is 1.7. Yesterday creatinine was 1.5. He had around 600 cc of urine output with 60 mg of IV Lasix December 15, 2023, BP 125/84, heart rate 80s to 90s beats a minute, atrial fibrillation, Rate controlled atrial fibrillation On BiPAP support, still appears volume overloaded however with IV Lasix creatinine has jumped from 1.7-2. On admission creatinine was 1.3. Patient was retaining urine last night. He was straight cathetered once and since then he has had good urine output responding well to Lasix. 12/15 Patient has been maintained on IV Lasix 40 mg every 12 hours. Blood pressure 158/91, heart rate 84, pulse ox 92% on 6 L nasal cannula. Repeat blood work reveals sodium 136, potassium 5.1, BUN 45 creatinine 1.25. Telemetry is atrial fibrillation with controlled rate. Patient has intermittent confusion and is on and off BiPAP. 12/16 Patient states that his breathing is little better today. He does have some left upper chest left shoulder discomfort. He does have a cough with a little sputum production. He denies any wheezing. He has been maintained on IV Lasix 40 mg every 12 hours patient has a negative fluid balance with documented weight loss. Blood pressure 148/77, heart rate 80, pulse ox 95% on 3 L nasal cannula. Repeat blood work reveals potassium 5.1, BUN 40 creatinine 1.26. proBNP 1480. PHYSICAL EXAMINATION Vital signs reviewed. Head: Normocephalic. Eyes: Sclerae nonicteric. Neck: Brisk carotid upstroke, mildly elevated jugular venous distention. Lungs: Clear to auscultation. Heart: Irregularly irregular, no significant murmurs appreciated. Abdomen: Soft nontender, Extremities: 2+ pitting edema in bilateral extremity Neuro: Alert, oritented, no focal deficits. Detailed neuro exam was not pe rformed. ASSESSMENT Acute diastolic heart failure exacerbation A-fib RVR, currently rate controlled Right bundle branch block Prior history of a flutter ablation [address] Dickerson Acute COPD exacerbation DEBRA on CKD stage II Morbid obesity Suspected obstructive sleep apnea Tobacco abuse Concerns of noncompliance PLAN Continue Eliquis 5 mg twice daily. Lipitor 40 mg daily Continue IV Lasix 40 mg every 12 hours for another 24 hours Continue increased dose of metoprolol succinate 150 mg daily Losartan will be resumed as kidney function has improved Continue patient on Farxiga 10 mg daily Monitor SHERIE, daily weights, electrolytes and renal function Anticipate probable discharge on Saturday. Nurse practitioner note has been reviewed, I agree with documented findings and plan of care. Patient was seen and examined. Objective - Vital Signs Vital signs: Vital Signs Temp 98.1 F 12/17/23 11:21 Pulse 80 12/17/23 11:21 Resp 21 12/17/23 11:21 BP 148/77 12/17/23 11:21 Pulse Ox 95 12/17/23 11:21 FiO2 50 12/17/23 08:45 Intake & Output 12/16/23 12/17/23 12/17/23 18:59 06:59 18:59 Intake Total 540 180 190 Output Total 1300 1500 900 Balance -552 -0390 -710 Weight 160 kg 144 kg Intake: IV 10 Invasive Line 3 10 Oral 540 180 180 Output: Urine 1300 1500 900 Other: Voiding Method Bedside Commode Bedside Commode Bedside Commode Urinal Urinal Urinal # Voids 1 - Labs CBC & Chem 7: 12/12/23 19:13 12/17/23 11:34 Labs: Abnormal Lab Results - Last 24 Hours (Table) 12/16/23 12/16/23 12/17/23 Range/Units 09:20 20:10 05:59 POC Glucose (mg/dL) 178 H 206 H (70-110) mg/dL Hemoglobin A1c 7.0 H (<=6.0) % 12/17/23 Range/Units 11:17 POC Glucose (mg/dL) 153 H (70-110) mg/dL Hemoglobin A1c (<=6.0) %
--- NOTE | 2023-12-17 15:07 | P.CNPUL ---
History of Present Illness Consult date: 12/17/23 Requesting physician: Rashaad Peres Reason for consult: COPD Chief complaint: Shortness of breath, chest pain History of present illness: This is a morbidly obese 58-year-old male patient with a history of chronic kidney disease, hypertension, hyperlipidemia, depression, atrial fibrillation anticoagulated with Eliquis, diastolic congestive heart failure, obstructive sleep apnea but recently noncompliant with his device due to lack of equipment, former smoker, chronic obstructive pulmonary disease with an FEV1 value 22% of predicted. He does have significant obstructive sleep apnea and is to be on a BiPAP machine along with oxygen at 2 L/min. He states his mask has been broken for quite some time and he does not followed up on that. He presented here to the emergency room on 12/12/2023 with complaints of left-sided chest pain and shortness of breath. We are consulted today December 17, 2023 for his shortness of breath. He is currently sitting up at the bedside. Awake and alert in no acute distress. He is maintaining O2 saturations in the 90s on 6 L/min per nasal cannula. No cough or congestion. No hemoptysis. He is afebrile. Hemodynamically stable. Chest x-ray shows mild interstitial pulmonary edema. Echocardiogram revealed preserved left ventricular systolic function with ejection fraction of 60 to 65%. Normal right sided pressures. There is severely increased left atrial diameter. He remains on IV Lasix 40 mg every 12 hours. He has had issues with atrial fibrillation and RVR and was initiated on Cardizem drip this admission. He remains anticoagulated with Eliquis. He is currently on a -2 L balance. Review of Systems REVIEW OF SYSTEMS: CONSTITUTIONAL: Denies any recent significant weight loss or weight gain. EYES: Denies change in vision. EARS, NOSE, MOUTH, THROAT: Denies headaches, denies sore throat. CARDIOVASCULAR: Positive for chest pain, palpitations no syncopal episodes. RESPIRATORY: Positive for shortness of breath, no cough, congestion or hemoptysis. GASTROINTESTINAL: Denies change in appetite, denies abdominal pain GENITOURINARY: Denies hematuria, denies infections. MUSKULOSKELETAL: Denies pain, denies swelling. INTEGUMENTARY: Chronic venous stasis changes of the lower extremities. NEUROLOGICAL: Denies recent memory loss, no recent seizure activity. PSYCHIATRIC: Denies anxiety, denies depression. HEMATOLOGIC/LYMPHATIC: Denies anemia, denies enlarged lymph nodes. 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 History of Any Multi-Drug Resistant Organisms: MRSA Date of last positivie culture/infection: 11/15/22 MDRO Source:: Left Leg Past Surgical History: Hernia Repair, Joint Replacement, Orthopedic Surgery Additional Past Surgical History / Comment(s): RT ARMAND, rt foot SX, Past Anesthesia/Blood Transfusion Reactions: No Reported Reaction Past Psychological History: Depression Smoking Status: Former smoker Past Alcohol Use History: None Reported Additional Past Alcohol Use History / Comment(s): QUIT SMOKING 2021 Past Drug Use History: None Reported - Past Family History Mother Family Medical History: No Reported History Medications and Allergies Home Medications Medication Instructions Recorded Confirmed Type Losartan [Cozaar] 25 mg PO HS 07/09/22 12/12/23 History hydrOXYzine pamoate [Vistaril] 50 mg PO HS PRN 07/09/22 12/12/23 History Atorvastatin [Lipitor] 10 mg PO DAILY 08/01/22 12/12/23 History Dapagliflozin Propanediol [Farxiga] 10 mg PO DAILY 30 Days #30 tab 09/10/22 12/12/23 Rx Famotidine [Pepcid] 20 mg PO BID #60 tab 09/10/22 12/12/23 Rx Metoprolol Succinate (ER) [Toprol 100 mg PO DAILY 30 Days #30 tab 09/10/22 12/12/23 Rx XL] busPIRone HCl [Buspar] 5 mg PO TID 30 Days #90 tab 09/10/22 12/12/23 Rx Furosemide [Lasix] 40 mg PO DAILY #30 tablet 10/24/22 12/12/23 Rx Pregabalin [Lyrica] 100 mg PO TID #3 cap 01/11/23 12/12/23 Rx traMADol HCl [Ultram] 50 mg PO Q6H PRN #4 tab 01/11/23 12/12/23 Rx Apixaban [Eliquis] 5 mg PO BID 12/12/23 12/12/23 History Finasteride [Proscar] 5 mg PO DAILY 12/12/23 12/12/23 History QUEtiapine [SEROquel] 50 mg PO HS 12/12/23 12/12/23 History Sertraline [Zoloft] 50 mg PO DAILY 12/12/23 12/12/23 History Tiotropium 2.5 Mcg/Puff [Spiriva 2 puff INHALATION RT-DAILY 12/12/23 12/12/23 History Respimat 2.5 Mcg] Allergies Allergy/AdvReac Type Severity Reaction Status Date / Time No Known Allergies Allergy Verified 11/04/23 15:12 Physical Exam Vitals: Vital Signs Temp Pulse Pulse Resp BP Pulse Ox FiO2 12/17/23 12:00 78 12/17/23 11:52 84 12/17/23 11:21 98.1 F 80 21 148/77 95 12/17/23 09:37 69 26 H 12/17/23 09:36 97.3 F L 69 26 H 137/78 95 12/17/23 08:54 84 12/17/23 08:45 50 12/17/23 08:44 80 12/17/23 04:11 50 12/17/23 03:18 97 18 150/93 96 12/17/23 01:19 14 12/17/23 00:59 50 12/16/23 23:46 108 H 18 95/59 97 12/16/23 21:51 84 20 12/16/23 21:44 79 20 50 12/16/23 20:36 98.0 F 65 18 135/77 94 L 12/16/23 20:00 14 12/16/23 15:40 84 14 50 12/16/23 15:33 98.0 F 82 18 118/82 96 12/16/23 15:29 82 20 Intake and Output 12/16/23 12/17/23 12/17/23 22:59 06:59 14:59 Intake Total 360 370 Output Total 1500 900 Balance 360 -1500 -530 Intake: IV 10 Invasive Line 3 10 Oral 360 360 Output: Urine 1500 900 Other: Voiding Method Bedside Commode Bedside Commode Bedside Commode Urinal Urinal Urinal # Voids 2 Weight 144 kg GENERAL EXAM: Alert, morbidly obese 58-year-old male patient on 6 L nasal cannula, comfortable in no apparent distress. HEAD: Normocephalic. EYES: Normal reaction of pupils, equal size. NOSE: Clear with pink turbinates. THROAT: Crowding in the posterior pharynx. No erythema or exudates. NECK: No masses, no JVD. CHEST: No chest wall deformity. LUNGS: Equal air entry with no crackles, wheeze, rhonchi or dullness. Diminished. CVS: S1 and S2 normal with no audible murmur, regular rhythm. ABDOMEN: No hepatosplenomegaly, normal bowel sounds, no guarding or rigidity. SPINE: No scoliosis or deformity SKIN: Changes of chronic venous stasis of the lower extremities. CENTRAL NERVOUS SYSTEM: No focal deficits, tone is normal in all 4 extremities. EXTREMITIES: Changes of chronic venous stasis of the lower extremities. No clubbing, no cyanosis. Peripheral pulses are intact. Results - Laboratory Findings CBC and BMP: 12/12/23 19:13 12/17/23 11:34 PT/INR, D-dimer PT 11.1 sec (10.0-12.5) 12/12/23 19:13 INR 1.0 (<1.2) 12/12/23 19:13 D-Dimer 0.96 mg/L FEU (<0.60) H 12/13/23 13:23 Abnormal lab findings: Abnormal Labs 12/12/23 12/12/23 12/13/23 19:13 19:13 13:23 RDW 16.6 H Lymphocytes # 0.7 L D-Dimer 0.96 H Sodium Chloride Carbon Dioxide 33 H BUN 35 H Creatinine 1.53 H Glucose POC Glucose (mg/dL) Hemoglobin A1c Calcium Alkaline Phosphatase 131 H Urine Glucose (UA) Urine Blood Urine Bacteria Hyaline Casts Urine Mucus 12/14/23 12/14/23 12/15/23 01:56 12:48 06:27 RDW Lymphocytes # D-Dimer Sodium 136 L Chloride Carbon Dioxide 34 H BUN 40 H 54 H Creatinine 1.71 H 2.03 H Glucose 137 H 108 H POC Glucose (mg/dL) 185 H Hemoglobin A1c Calcium 8.3 L 8.0 L Alkaline Phosphatase Urine Glucose (UA) Urine Blood Urine Bacteria Hyaline Casts Urine Mucus 12/15/23 12/16/23 12/16/23 13:00 09:17 09:20 RDW Lymphocytes # D-Dimer Sodium 136 L Chloride Carbon Dioxide 34 H BUN 45 H Creatinine Glucose 175 H POC Glucose (mg/dL) Hemoglobin A1c 7.0 H Calcium Alkaline Phosphatase Urine Glucose (UA) 2+ H Urine Blood Small H Urine Bacteria Rare H Hyaline Casts 5 H Urine Mucus Rare H 12/16/23 12/17/23 12/17/23 20:10 05:59 11:17 RDW Lymphocytes # D-Dimer Sodium Chloride Carbon Dioxide BUN Creatinine Glucose POC Glucose (mg/dL) 178 H 206 H 153 H Hemoglobin A1c Calcium Alkaline Phosphatase Urine Glucose (UA) Urine Blood Urine Bacteria Hyaline Casts Urine Mucus 12/17/23 11:34 RDW Lymphocytes # D-Dimer Sodium Chloride 96 L Carbon Dioxide 36 H BUN 40 H Creatinine 1.26 H Glucose 136 H POC Glucose (mg/dL) Hemoglobin A1c Calcium Alkaline Phosphatase Urine Glucose (UA) Urine Blood Urine Bacteria Hyaline Casts Urine Mucus - Diagnostic Findings Chest x-ray: image reviewed Assessment and Plan Assessment: Acute exacerbation of chronic diastolic congestive heart failure Acute on chronic hypoxemic respiratory failure secondary to above Acute on chronic hypercapnic respiratory failure secondary to obstructive sleep apnea and COPD and diastolic congestive heart failure Acute exacerbation of chronic obstructive pulmonary disease Atrial fibrillation with a rapid ventricular response requiring Cardizem drip, improved, anticoagulated with Eliquis Obstructive sleep apnea to be on BiPAP in the outpatient setting, noncompliant Morbid obesity Former heavy smoker stating quit 3 years ago Acute on chronic kidney disease Hypertension Hyperlipidemia History of depression Plan: The patient was seen and evaluated Chest x-ray, echocardiogram, labs and medications reviewed Continue IV diuretics Continue bronchodilators Anticoagulated with Eliquis Titrate down the FiO2 as tolerated Utilize BiPAP throughout the night and during the day while asleep napping Educated regarding the importance of medication and medical compliance We will continue to follow and make further recommendations based on his clinical status I have personally seen and examined the patient, performed the documentation and the assessment and plan as written. Number of minutes spent on the visit: 20.
[2023-12-17] MEDS: IPRATROPIUM-ALBUTEROL 3 ML NEB INHALATION SCH (15:40)
[2023-12-17] MEDS: predniSONE 20 MG TAB PO SCH (15:40)
[2023-12-17 16:23] LABS: Glucose,Whole Blood 142 mg/dL (70-110)
[2023-12-17 20:07] LABS: Glucose,Whole Blood 182 mg/dL (70-110)
[2023-12-17] MEDS: LOSARTAN 25 MG TAB PO SCH (20:38)
--- NOTE | 2023-12-17 20:59 | P.PN ---
Subjective Progress Note Date: 12/17/23 Six 58-year-old pleasant male with known history of COPD on oxygen came in with complaints of shortness of breath orthopnea patient quit smoking used to be a heavy smoker, found to be in atrial fibrillation and congestive heart failure with pulm edema BNP of 3000 and previous echocardiogram showing EF of 50% with diastolic dysfunction. Patient denies any fever or chills chest x-ray did not show any pneumonia patient does not have any leukocytosis. Patient has significant bilateral lower extremity edema. And bilateral lower extremity venous stasis patient does have sleep apnea was unable to use CPAP machine because of some insurance issues. Patient is also complaining of left shoulder pain unable to get to the shoulder I will obtain a shoulder x-ray on the left side. Patient also complaining of pleuritic chest pain, will be obtaining a D-dimer. 12/14/2023 Patient is evaluated today in follow-up in the ER pending bed on the medical floor. Patient is having episodes of myoclonic jerking however his mentation is more awake and alert than he was over the night. Apparently patient was not a team due to episodes of unresponsiveness and was placed on the BiPAP. He is currently being treated for volume overload remains on IV Lasix 60 mg every 12 hours. His BUN today is 40 creatinine of 1.71. He has had about 2.4 mL of urine output in last 24 hours. X-ray of the left shoulder reveals no acute fracture there is arthropathy. Pending evaluation by orthopedics. His heart rate has also increased up to 20s overnight was started on IV Cardizem infusion. Rate is now in the 90s today and he is taken off the Cardizem. He remains in atrial fibrillation. Echocardiogram reveals LV ejection fraction at 60 to 65% with moderate concentric left ventricular hypertrophy. There is severe left atrial dilation. Unable to assess diastolic dysfunction due to the A-fib. There is significant valvular dysfunction with trace to mild tricuspid regurgitation mild pulmonic regurgitation trace to mild mitral vegetation. 12/15/2023 Patient is evaluated today in follow up on the medical floor. He is less confused. Reports feeling less short of breath. He has been wearing the BiPAP. Continued on IV lasix which was decreased to 40 mg [id number] as renal function is increasing. Up to 2.03 today. Renal ultrasound done with no evidence of obstructive uropathy. Orthopedics has evaluated the patient for his left shoulder pain and felt that this was likely arthritic changes and they are recommending a shoulder sling. 12/16/2023 Patient evaluated in follow up . Remains on BiPAP at HS and during the day. Discussed with case management who has confirmed with medical supplier that patient has been non compliant with his CPAP in the past and not following up regarding the equipment. For this reason he is unable to obtain CPAP or supplies and insurance will no longer pay for one for him. Patient does state that he understands now the need for CPAP but unfortunately he will be unable to obtain one for outpatient use at this time. Will need to follow up with CM and pulmonary for this tomorrow. Patient is having continued episodes of confusion although overall his mentation has improved. He is continued on IV lasix 40 mg Q12 hours. Creatinine down to 1.23 today. 12/17/2023 Patient sitting up at the beside. Had discussion about patient being unable to get the CPAP for outpatient use. He has been using the BiPAP here during the day and at night. He is continued on IV lasix 40 mg Q12 hour. Creatinine stable at 1.26. Review of Systems Constitutional: Denied any fatigue denied any fever. Cardio vascular: denied any chest pain, palpitations Gastrointestinal: denied any nausea, vomiting, diarrhea Pulmonary: Denied any shortness of breath cough Neurologic denied any new focal deficits All inpatient medications were reviewed and appropriate changes in these medications as dictated in the interval history and assessment and plan. PHYSICAL EXAMINATION: GENERAL: The patient is alert and oriented x3, not in any acute distress. Well developed, well nourished. Obese HEENT: Pupils are round and equally reacting to light. EOMI. No scleral icterus. No conjunctival pallor. Normocephalic, atraumatic. No pharyngeal erythema. No thyromegaly. CARDIOVASCULAR: S1 and S2 present. No murmurs, rubs, or gallops. PULMONARY: Chest is clear to auscultation, no wheezing or crackles. ABDOMEN: Soft, nontender, nondistended, normoactive bowel sounds. No palpable organomegaly. MUSCULOSKELETAL: No joint swelling or deformity. Limited range of motion to the left shoulder secondary to pain. EXTREMITIES: No cyanosis, clubbing, patient does have bilateral lower extremity edema NEUROLOGICAL: Gross neurological examination did not reveal any focal deficits. Is having myoclonic jerking SKIN: Chronic venous stasis dermatosis Assessment and plan -Atrial fibrillation paroxysmal rapid ventricular rate treated with IV cardizem, now discontinued. He is anticoagulated with Eliquis. Rate is now controlled. -Congestive failure chronic diastolic function with acute exacerbation patient w as started on IV Lasix monitor renal function and strict intake and output monitoring. -Pleuritic chest pain will obtain a D-dimer which is elevated at 0.96 althought patient is anticoagulated with eliquis and he states he has been compliant with medications. -Altered Mental status and acute metabolic encephalopathy with myoclonus improving -Left shoulder arthropathy: Orthopedic surgery consultation x-ray was reviewed and reveals no acute fracture. Likely due to arthritic changes will recommend a shoulder sling and Voltaren cream. -COPD without any acute exacerbation Patinet has been maintained on BiPAP will consult pulmonary for evaluation. -Chronic kidney disease stage III with acute kidney injury due to diuresis and lasix dose has been decreased. Repeat BMP in the AM. -Hyperlipidemia -Hypertension -Sleep apnea need social work follow up as patient has insurance issues getting his CPAP supplies outpatient -Depression for above-mentioned chronic medical problems patient will be resumed on appropriate home medications DVT prophylaxis: On anticoagulation with Eliquis The impression and plan of care has been dictated by Meri Galvan Nurse Practitioner as directed. Dr. Denisse MD I have performed a history and physical examination and medical decision making of this patient, discussed the same with the dictator, and agree with the dictators assessment and plan as written, documented as a scribe. Based on total visit time, I have performed more than 50% of this visit. Objective - Vital Signs Vital signs: Vital Signs Temp 98.1 F 12/17/23 20:00 Pulse 82 12/17/23 20:01 Resp 18 12/17/23 20:00 BP 127/83 12/17/23 20:00 Pulse Ox 96 12/17/23 20:00 FiO2 50 12/17/23 08:45 Intake & Output 12/17/23 12/17/23 12/18/23 06:59 18:59 06:59 Intake Total 180 560 Output Total 1500 900 Balance -1320 -340 Weight 144 kg Intake: IV 20 Invasive Line 3 20 Oral 180 540 Output: Urine 1500 900 Other: Voiding Method Bedside Commode Toilet Urinal Bedside Commode Urinal # Voids 1 - Labs CBC & Chem 7: 12/12/23 19:13 12/17/23 11:34 Labs: Abnormal Lab Results - Last 24 Hours (Table) 12/17/23 12/17/23 12/17/23 Range/Units 05:59 11:17 11:34 Chloride 96 L (98-107) mmol/L Carbon Dioxide 36 H (22-30) mmol/L BUN 40 H (9-20) mg/dL Creatinine 1.26 H (0.66-1.25) mg/dL Glucose 136 H (74-99) mg/dL POC Glucose (mg/dL) 206 H 153 H (70-110) mg/dL 12/17/23 12/17/23 Range/Units 16:21 20:04 Chloride (98-107) mmol/L Carbon Dioxide (22-30) mmol/L BUN (9-20) mg/dL Creatinine (0.66-1.25) mg/dL Glucose (74-99) mg/dL POC Glucose (mg/dL) 142 H 182 H (70-110) mg/dL Assessment and Plan Time with Patient: Less than 30
[2023-12-18 04:16] VITALS: RESP 16
[2023-12-18 06:16] LABS: Glucose,Whole Blood 130 mg/dL (70-110)
[2023-12-18 11:33] LABS: Glucose,Whole Blood 152 mg/dL (70-110)
[2023-12-18 12:07] LABS: African American GFR (CKD) 79 (>60 ml/min/1.73 sqM); Blood Urea Nitrogen 42 mg/dL (9-20); Calcium 8.7 mg/dL (8.4-10.2); Chloride 95 mmol/L (98-107); Glucose 140 mg/dL (74-99); Non-African American GFR(CKD) 69 (>60 ml/min/1.73 sqM); Potassium 4.5 mmol/L (3.5-5.1); Sodium 138 mmol/L (137-145)
--- NOTE | 2023-12-18 12:15 | P.PN ---
Subjective Progress Note Date: 12/18/23 Principal diagnosis: Acute exacerbation of chronic diastolic congestive heart failure with acute on chronic hypoxic and hypercapnic respiratory failure This is a morbidly obese 58-year-old male patient with a history of chronic kidney disease, hypertension, hyperlipidemia, depression, atrial fibrillation anticoagulated with Eliquis, diastolic congestive heart failure, obstructive sleep apnea but recently noncompliant with his device due to lack of equipment, former smoker, chronic obstructive pulmonary disease with an FEV1 value 22% of predicted. He does have significant obstructive sleep apnea and is to be on a BiPAP machine along with oxygen at 2 L/min. He states his mask has been broken for quite some time and he does not followed up on that. He presented here to the emergency room on 12/12/2023 with complaints of left-sided chest pain and shortness of breath. We are consulted today December 17, 2023 for his shortness of breath. He is currently sitting up at the bedside. Awake and alert in no acute distress. He is maintaining O2 saturations in the 90s on 6 L/min per nasal cannula. No cough or congestion. No hemoptysis. He is afebrile. Hemodynamically stable. Chest x-ray shows mild interstitial pulmonary edema. Echocardiogram revealed preserved left ventricular systolic function with ejection fraction of 60 to 65%. Normal right sided pressures. There is severely increased left atrial diameter. He remains on IV Lasix 40 mg every 12 hours. He has had issues with atrial fibrillation and RVR and was initiated on Cardizem drip this admission. He remains anticoagulated with Eliquis. He is currently on a -2 L balance. Patient was seen and evaluated again today on 12/18/2023, seems to be comfortable, does not seem to be in any distress. Patient has been using his BiPAP at night, versus at bedside, but apparently is not compliant with his BiPAP at home. Pulmonary hernandez he is on 6 L nasal cannula, does not seem to be in any distress. Chest x-ray on his initial admission showed evidence of interstitial edema, clinically however the patient is doing much better today compared to how he felt on presentation. Objective - Vital Signs Vital signs: Vital Signs Temp 97.8 F 12/18/23 08:00 Pulse 80 12/18/23 09:17 Resp 16 12/18/23 08:00 BP 135/68 12/18/23 08:00 Pulse Ox 94 L 12/18/23 09:03 FiO2 50 12/18/23 04:13 Intake & Output 12/17/23 12/18/23 12/18/23 18:59 06:59 18:59 Intake Total 560 20 356 Output Total 900 Balance -340 20 356 Weight 143.5 kg Intake: IV 20 20 Invasive Line 3 20 20 Oral 540 356 Output: Urine 900 Other: Voiding Method Toilet Bedside Commode Bedside Commode Urinal Urinal # Voids 1 2 - Exam GENERAL EXAM: Reveals 58-year-old white male morbidly obese on 6 L nasal cannula in no distress HEAD: Normocephalic. EYES: Normal reaction of pupils, equal size. NOSE: Clear with pink turbinates. THROAT: Crowding in the posterior pharynx. No erythema or exudates. NECK: No masses, no JVD. CHEST: No chest wall deformity. LUNGS: Diminished breath sound bilaterally no crackles rhonchi or wheezes CVS: S1 and S2 normal with no audible murmur, regular rhythm. ABDOMEN: No hepatosplenomegaly, normal bowel sounds, no guarding or rigidity. SKIN: Chronic venous stasis changes CENTRAL NERVOUS SYSTEM: No focal deficits, tone is normal in all 4 extremities. EXTREMITIES: Changes of chronic venous stasis of the lower extremities. No clubbing, no cyanosis. Peripheral pulses are intact. - Labs CBC & Chem 7: 12/12/23 19:13 12/17/23 11:34 Labs: Abnormal Lab Results - Last 24 Hours (Table) 12/17/23 12/17/23 12/17/23 Range/Units 11:34 16:21 20:04 Chloride 96 L (98-107) mmol/L Carbon Dioxide 36 H (22-30) mmol/L BUN 40 H (9-20) mg/dL Creatinine 1.26 H (0.66-1.25) mg/dL Glucose 136 H (74-99) mg/dL POC Glucose (mg/dL) 142 H 182 H (70-110) mg/dL 12/18/23 12/18/23 Range/Units 06:13 11:31 Chloride (98-107) mmol/L Carbon Dioxide (22-30) mmol/L BUN (9-20) mg/dL Creatinine (0.66-1.25) mg/dL Glucose (74-99) mg/dL POC Glucose (mg/dL) 130 H 152 H (70-110) mg/dL Microbiology - Last 24 Hours (Table) 12/12/23 19:30 Blood Culture - Final Blood 12/12/23 19:13 Blood Culture - Final Blood Assessment and Plan Assessment: Impression: Acute on chronic hypoxic and hypercapnic respiratory failure, multifactorial Acute exacerbation of chronic diastolic congestive heart failure Cysts history of underlying COPD History of underlying obstructive sleep apnea syndrome Atrial fibrillation with RVR requiring Cardizem drip improved and he is on Eliquis Obstructive sleep apnea syndrome supposed to be on BiPAP, noncompliant Morbid obesity Former smoker quit 3 years ago Acute on chronic kidney disease History of depression Benign essential hypertension Dyslipidemia recommendation: Continue oxygen and titrate accordingly Continue BiPAP at night while inpatient, Patient to follow-up with Dr. Gregory regarding his obstructive sleep apnea and to be restarted back on BiPAP hopefully on outpatient basis Advised to be more compliant with his medications including diuretics bron chodilators and anticoagulation therapy Will clear the patient for discharge if cleared by other consultants on the case Time with Patient: Less than 30
[2023-12-18 12:16] LABS: Anion Gap 10 mmol/L; Carbon Dioxide 33 mmol/L (22-30)
--- NOTE | 2023-12-18 13:56 | P.PN ---
Subjective Progress Note Date: 12/18/23 HISTORY OF PRESENTING ILLNESS 58-year-old with known history of ablation [place] [address] Dickerson, morbid ob esity, COPD on oxygen, prior history of diastolic heart failure, presented to hospital because of increased shortness of breath. On admission he was found to be in atrial fibrillation with RVR with right bundle branch block. Comparing his older ECGs, it appears that patient was in atrial fibrillation and 2022 as well. Admission ECG shows A-fib heart rate 101, right bundle branch block with no significant resting ST changes suggestive of acute ischemia CXR shows bilateral pulmonary congestion. Hemoglobin 16, BUN 35, creatinine 1.5, creatinine appears to be baseline, troponin was negative, BNP elevated at 3800. Cardiac testing Lexiscan Jul 2022 did not show any reversible ischemia Echo EF 55%, no major valvular abnormality reported Echo from November 2023 shows EF of 55%, no major valvular abnormality. December 14, 2023 Patient is seen and examined at bedside this a.m. He continues to be in mild respiratory distress. Last night he went into A-fib RVR for which she was started on Cardizem drip. This morning he is in rate controlled atrial fibrillation. His labs came back late but it is noted that his BUN is 40, creatinine is 1.7. Yesterday creatinine was 1.5. He had around 600 cc of urine output with 60 mg of IV Lasix December 15, 2023, BP 125/84, heart rate 80s to 90s beats a minute, atrial fibrillation, Rate controlled atrial fibrillation On BiPAP support, still appears volume overloaded however with IV Lasix creatinine has jumped from 1.7-2. On admission creatinine was 1.3. Patient was retaining urine last night. He was straight cathetered once and since then he has had good urine output responding well to Lasix. 12/15 Patient has been maintained on IV Lasix 40 mg every 12 hours. Blood pressure 158/91, heart rate 84, pulse ox 92% on 6 L nasal cannula. Repeat blood work reveals sodium 136, potassium 5.1, BUN 45 creatinine 1.25. Telemetry is atrial fibrillation with controlled rate. Patient has intermittent confusion and is on and off BiPAP. 12/16 Patient states that his breathing is little better today. He does have some left upper chest left shoulder discomfort. He does have a cough with a little sputum production. He denies any wheezing. He has been maintained on IV Lasix 40 mg every 12 hours patient has a negative fluid balance with documented weight loss. Blood pressure 148/77, heart rate 80, pulse ox 95% on 3 L nasal cannula. Repeat blood work reveals potassium 5.1, BUN 40 creatinine 1.26. proBNP 1480. 12/17 Patient states that he was restless all night with restless leg syndrome could not sleep. He complains of cough. He states his breathing is about the same as when he comes in. He denies having wheezing. He has been on IV Lasix 40 mg every 12 hours. He is followed by pulmonary medicine as well. Blood pressure 135/68, heart rate 95, pulse ox 90% on 6 L nasal cannula. Patient is using BiPAP at nighttime. Repeat blood work reveals sodium 138, potassium 4.5, BUN 32, creatinine 1.16. CO2 33. PHYSICAL EXAMINATION Vital signs reviewed. Head: Normocephalic. Eyes: Sclerae nonicteric. Neck: Brisk carotid upstroke, mildly elevated jugular venous distention. Lungs: Clear to auscultation. Heart: Irregularly irregular, no significant murmurs appreciated. Abdomen: Soft nontender, Extremities: 2+ pitting edema in bilateral extremity Neuro: Alert, oritented, no focal deficits. Detailed neuro exam was not performed. ASSESSMENT Acute diastolic heart failure exacerbation A-fib RVR, currently rate controlled Right bundle branch block Prior history of a flutter ablation [address] Dickerson Acute COPD exacerbation DEBRA on CKD stage II Morbid obesity Suspected obstructive sleep apnea Tobacco abuse Concerns of noncompliance PLAN Continue Eliquis 5 mg twice daily. Lipitor 40 mg daily, metoprolol succinate 150 mg daily, Farxiga 10 mg daily, losartan 25 mg at bedtime Transition IV Lasix to oral 40 mg twice daily Monitor SHERIE, daily weights, electrolytes and renal function Patient is clinically stable from a cardiac perspective for discharge. Patient may follow-up in the office in 1 to 2 weeks. Nurse practitioner note has been reviewed, I agree with documented findings and plan of care. Patient was seen and examined. Objective - Vital Signs Vital signs: Vital Signs Temp 97.8 F 12/18/23 08:00 Pulse 80 12/18/23 09:17 Resp 16 12/18/23 08:00 BP 135/68 12/18/23 08:00 Pulse Ox 94 L 12/18/23 09:03 FiO2 50 12/18/23 04:13 Intake & Output 12/17/23 12/18/23 12/18/23 18:59 06:59 18:59 Intake Total 560 20 356 Output Total 900 Balance -340 20 356 Weight 143.5 kg Intake: IV 20 20 Invasive Line 3 20 20 Oral 540 356 Output: Urine 900 Other: Voiding Method Toilet Bedside Commode Bedside Commode Urinal Urinal # Voids 1 2 - Labs CBC & Chem 7: 12/12/23 19:13 12/18/23 11:21 Labs: Abnormal Lab Results - Last 24 Hours (Table) 12/17/23 12/17/23 12/17/23 Range/Units 11:34 16:21 20:04 Chloride 96 L (98-107) mmol/L Carbon Dioxide 36 H (22-30) mmol/L BUN 40 H (9-20) mg/dL Creatinine 1.26 H (0.66-1.25) mg/dL Glucose 136 H (74-99) mg/dL POC Glucose (mg/dL) 142 H 182 H (70-110) mg/dL 12/18/23 12/18/23 Range/Units 06:13 11:31 Chloride (98-107) mmol/L Carbon Dioxide (22-30) mmol/L BUN (9-20) mg/dL Creatinine (0.66-1.25) mg/dL Glucose (74-99) mg/dL POC Glucose (mg/dL) 130 H 152 H (70-110) mg/dL Microbiology - Last 24 Hours (Table) 12/12/23 19:30 Blood Culture - Final Blood 12/12/23 19:13 Blood Culture - Final Blood
[2023-12-18 14:55] VITALS: BP 123/74; TEMP 98
[2023-12-18 16:22] VITALS: PULSE 84
--- NOTE | 2023-12-18 16:39 | P.DS ---
Providers Date of admission: 12/12/23 20:44 Attending physician: Rashaad Peres Consults: 12/12/23 20:44 Consult Physician Routine Consulting Provider: [facility] Consult Reason/Comments: Chest pain, pulmonary edema Do you want consulting provider notified?: Yes 12/13/23 13:05 Consult Physician Routine Consulting Provider: [facility] Consult Reason/Comments: lt shoulder pain Do you want consulting provider notified?: Yes 12/17/23 12:58 Consult Physician Routine Consulting Provider: Sita Waterman Consult Reason/Comments: COPD exacerbation requiring BiPAP Do you want consulting provider notified?: Yes Primary care physician: [facility] Course: Final Diagnosis -Atrial fibrillation paroxysmal rapid ventricular rate treated with IV cardizem, now discontinued. He is anticoagulated with Eliquis. Rate is now controlled. -Congestive failure chronic diastolic function with acute exacerbation -Pleuritic chest pain will obtain a D-dimer which is elevated at 0.96 althought patient is anticoagulated with eliquis and he states he has been compliant with medications. -Altered Mental status and acute metabolic encephalopathy with myoclonus improving -Left shoulder arthropathy: Orthopedic surgery consultation x-ray was reviewed and reveals no acute fracture. Likely due to arthritic changes will recommend a shoulder sling and Voltaren cream. -COPD with mild acute exacerbation Patinet has been maintained on BiPAP will consult pulmonary for evaluation. -Chronic kidney disease stage III with acute kidney injury due to diuresis and lasix dose has been decreased. -Hyperlipidemia -Hypertension -Sleep apnea need social work follow up as patient has insurance issues getting his CPAP supplies outpatient -Depression for above-mentioned chronic medical problems patient will be resumed on appropriate home medications Discharge Disposition Stable for discharge home with overall guarded prognosis secondary to his prior history of noncompliance and unable to obtain a CPAP machine on an outpatient basis at this time. Patient has been referred back to the sleep study center with Dr. Gregory for another sleep study and will need to work out with his insurance company about obtaining a CPAP machine. Patient will continue on a long oral steroid taper. Patient has a follow-up appointment scheduled with Dr. Gregory on December 26 at 2:45 PM. Patient has a follow-up with his blind installer Dr. Pittman on January 05 at 9:45 AM. Patient is given information for counsels on aging for assistance in the home and has a referral placed to [facility] home care on discharge. Patient to follow-up with his PCP Dr. Parish Malave in 1 to 2 days. Patient's Lasix dose has been increased up to twice a day additionally. Hospital Course This is a 58-year-old pleasant male with known history of COPD on oxygen came in with complaints of shortness of breath orthopnea patient quit smoking used to be a heavy smoker, found to be in atrial fibrillation and congestive heart failure with pulm edema, BNP of 3000 and previous echocardiogram showing EF of 50% with diastolic dysfunction. Patient denies any fever or chills chest x-ray did not show any pneumonia patient does not have any leukocytosis. Patient has significant bilateral lower extremity edema. And bilateral lower extremity venous stasis patient does have sleep apnea was unable to use CPAP machine because of some insurance issues. Patient is also complaining of left shoulder pain. Patient also complaining of pleuritic chest pain. Patient had a mildly elevated D-dimer at 0.96. He has been compliant with his Eliquis and suspicion for pulmonary embolism is low at this time. Patient was placed on BiPAP therapy as he did have an episode of unresponsiveness. Pulmonary and cardiology have evaluated this patient. He was also any episodes of SVT requiring IV Cardizem does have a known history of atrial fibrillation. His heart rate is now controlled and he remains on his Eliquis. Patient was treated with IV Solu- Medrol and has been transition to an oral prednisone taper on discharge. Patient did have an x-ray completed of his left shoulder which reveals no acute fracture but there is arthropathy he was evaluated with orthopedics with no surgical intervention planned patient will continue with Voltaren gel and can use a soft sling as needed for support of the left shoulder. Patient had an echocardiogram completed showing an LV ejection fraction of 60 to 65% with moderate concentric left ventricular hypertrophy with severe left atrial dilation. He they were unable to assess the diastolic dysfunction secondary to atrial fibrillation. Trace to mild tricuspid regurgitation mild pulmonary regurgitation and trace to mild regurgitation. Treated with IV Lasix 40 mg every 12 hours and had significant improvement in his shortness of breath and his peripheral edema has significantly improved as well. Patient's renal function has also normalized he was 1.53 on admission peaked up to 2.03 and t alissa has normalized at 1.16. She is maintained on oxygen on an outpatient basis. He has been evaluated he is not complaining of significant shortness of breath he is not having any chest pain he is alert x 3 he was reevaluated physical therapy and has been getting up independently now and will be discharged home with above-mentioned recommendations. Please see medication reconciliation for a list of current medications. Thank you for allowing us to participate in the care of this patient. The impression and plan of care has been dictated by Meri Galvan, Nurse Practitioner as directed. Dr. Denisse MD I have performed a history and physical examination and medical decision making of this patient, discussed the same with the dictator, and agree with the dictators assessment and plan as written, documented as a scribe. Based on total visit time, I have performed more than 50% of this visit. Patient Condition at Discharge: Fair Plan - Discharge Summary Discharge Rx Participant: No New Discharge Prescriptions: New Ipratropium-Albuterol Nebulize [Duoneb 0.5 mg-3 mg/3 ml Soln] 3 ml INHALATION RT-QID PRN #20 each PRN Reason: Shortness Of Breath Or Wheezing Furosemide [Lasix] 40 mg PO BID@0900,1600 #60 tab predniSONE 10 mg PO DIRECTED 13 Days #34 tab Tamsulosin [Flomax] 0.4 mg PO PC-BRKFST #30 cap polyethylene glycoL 3350 [Miralax] 17 gm PO DAILY PRN packet PRN Reason: Constipation Continue hydrOXYzine pamoate [Vistaril] 50 mg PO HS PRN PRN Reason: ANXIETY/INSOMNIA Dapagliflozin Propanediol [Farxiga] 10 mg PO DAILY 30 Days #30 tab Metoprolol Succinate (ER) [Toprol XL] 100 mg PO DAILY 30 Days #30 tab traMADol HCl [Ultram] 50 mg PO Q6H PRN #4 tab PRN Reason: Pain Pregabalin [Lyrica] 100 mg PO TID #3 cap Tiotropium 2.5 Mcg/Puff [Spiriva Respimat 2.5 Mcg] 2 puff INHALATION RT-DAILY Losartan [Cozaar] 25 mg PO HS Atorvastatin [Lipitor] 10 mg PO DAILY busPIRone HCl [Buspar] 5 mg PO TID 30 Days #90 tab Famotidine [Pepcid] 20 mg PO BID #60 tab Apixaban [Eliquis] 5 mg PO BID Finasteride [Proscar] 5 mg PO DAILY QUEtiapine [SEROquel] 50 mg PO HS Sertraline [Zoloft] 50 mg PO DAILY Discontinued Furosemide [Lasix] 40 mg PO DAILY #30 tablet Discharge Medication List Losartan [Cozaar] 25 mg PO HS 07/09/22 [History] hydrOXYzine pamoate [Vistaril] 50 mg PO HS PRN 07/09/22 [History] Atorvastatin [Lipitor] 10 mg PO DAILY 08/01/22 [History] Dapagliflozin Propanediol [Farxiga] 10 mg PO DAILY 30 Days #30 tab 09/10/22 [Rx] Famotidine [Pepcid] 20 mg PO BID #60 tab 09/10/22 [Rx] Metoprolol Succinate (ER) [Toprol XL] 100 mg PO DAILY 30 Days #30 tab 09/10/22 [Rx] busPIRone HCl [Buspar] 5 mg PO TID 30 Days #90 tab 09/10/22 [Rx] Pregabalin [Lyrica] 100 mg PO TID #3 cap 01/11/23 [Rx] traMADol HCl [Ultram] 50 mg PO Q6H PRN #4 tab 01/11/23 [Rx] Apixaban [Eliquis] 5 mg PO BID 12/12/23 [History] Finasteride [Proscar] 5 mg PO DAILY 12/12/23 [History] QUEtiapine [SEROquel] 50 mg PO HS 12/12/23 [History] Sertraline [Zoloft] 50 mg PO DAILY 12/12/23 [History] Tiotropium 2.5 Mcg/Puff [Spiriva Respimat 2.5 Mcg] 2 puff INHALATION RT-DAILY 12/12/23 [History] Furosemide [Lasix] 40 mg PO BID@0900,1600 #60 tab 12/18/23 [Rx] Ipratropium-Albuterol Nebulize [Duoneb 0.5 mg-3 mg/3 ml Soln] 3 ml INHALATION RT-QID PRN #20 each 12/18/23 [Rx] Tamsulosin [Flomax] 0.4 mg PO PC-BRKFST #30 cap 12/18/23 [Rx] polyethylene glycoL 3350 [Miralax] 17 gm PO DAILY PRN packet 12/18/23 [Rx] predniSONE 10 mg PO DIRECTED 13 Days #34 tab 12/18/23 [Rx] Follow up Appointment(s)/Referral(s): Carmine Dickerson MD [STAFF PHYSICIAN] - 01/06/24 9:45 am [facility] [NON-STAFF] - (Call for help with medical transportation. ) Parish Iverson MD [Primary Care Provider] - 1-2 days (please call to make your appointment) Rubén Gregory MD [STAFF PHYSICIAN] - 12/27/23 2:45 pm (Call the office to schedule at the sleep center ) [facility] Visiting Nurse, [NON-STAFF] - Ambulatory/Diagnostic Orders: Basic Metabolic Panel [LAB.AMB] Time Frame: 3 Days, Location: None Selected Complete Blood Count w/diff [LAB.AMB] Location: None Selected Patient Instructions/Handouts: Pulmonary Edema (DC), Sleep Apnea (GEN), CPAP (GEN) Activity/Diet/Wound Care/Special Instructions: Increase lasix to twice a day Complete oral steroid taper Need to see Dr. Gregory in the sleep center for reevaluation for Cpap machine. Discharge/Stand Alone Forms: Who Do I Call?, Community Resources, Outpatient Counseling, Personal It Help Desk Technician Discharge Disposition: HOME WITH HOME HEALTH SERVICES
[2023-12-18] MEDS: FUROSEMIDE 40 MG TAB PO SCH (16:42)
[2023-12-18 16:43] LABS: Glucose,Whole Blood 175 mg/dL (70-110)
== END 2023-12-18 18:23 | disposition home health service (06) | DRG 194 ==
LOC: EC 18:41 → 1SOBS 20:44 → 3SCARD 23:12
PROVIDERS: ADMIT Hospitalist; ATTEND Hospitalist
PROC: 5A09357 Assistance with Respiratory Ventilation, Less than 24 Consecutive Hours, Continuous Positive Airway Pressure (ICD-10-PCS; principal; 2023-12-14)
DX: I13.0 Hypertensive heart and chronic kidney disease with heart failure and stage 1 through stage 4 chronic kidney disease, or unspecified chronic kidney disease (principal); G25.3 Myoclonus; G25.81 Restless legs syndrome; F32.A Depression, unspecified; G47.33 Obstructive sleep apnea (adult) (pediatric); G93.41 Metabolic encephalopathy; I45.10 Unspecified right bundle-branch block; I47.10 Supraventricular tachycardia, unspecified; I48.0 Paroxysmal atrial fibrillation; I50.33 Acute on chronic diastolic (congestive) heart failure; I87.8 Other specified disorders of veins; J44.1 Chronic obstructive pulmonary disease with (acute) exacerbation; I07.1 Rheumatic tricuspid insufficiency; J96.21 Acute and chronic respiratory failure with hypoxia; Z79.01 Long term (current) use of anticoagulants; Z99.81 Dependence on supplemental oxygen; J96.22 Acute and chronic respiratory failure with hypercapnia; Z96.649 Presence of unspecified artificial hip joint; M19.012 Primary osteoarthritis, left shoulder; E66.01 Morbid (severe) obesity due to excess calories; N17.9 Acute kidney failure, unspecified; Z68.42 Body mass index [BMI] 45.0-49.9, adult; T50.2X5A Adverse effect of carbonic-anhydrase inhibitors, benzothiadiazides and other diuretics, initial encounter; N18.30 Chronic kidney disease, stage 3 unspecified; Z79.84 Long term (current) use of oral hypoglycemic drugs; Z79.899 Other long term (current) drug therapy; Z91.199 Patient's noncompliance with other medical treatment and regimen due to unspecified reason; Z86.14 Personal history of Methicillin resistant Staphylococcus aureus infection
CPT/HCPCS: 36415; 71046; 76770; 80048; 80053; 81001; 83036; 83605; 83735; 83880; 84484; 85025; 85379; 85610; 85730; 87040; 93005; 93306; 94640; 94660; 94760; 96365; 96366; 96375; 96376; 99285

== ENCOUNTER 2024-01-07 14:21 | Inpatient (IN) | payer MEDICARE, OTHER ==
--- NOTE | 2024-01-07 14:33 | ED ---
SOB HPI - General Chief Complaint: Shortness of Breath Stated Complaint: TONEY Time Seen by Provider: 01/07/24 14:22 Source: patient, EMS, RN notes reviewed, old records reviewed Mode of arrival: EMS Limitations: no limitations - History of Present Illness Initial Comments: This is a 58-year-old male to the ER for evaluation of significant shortness of breath worsening shortness of breath but mainly complaining of severe leg pain leg swelling overall not feeling well history of asthma and COPD with history of smoking. Patient has generalized body aches and pains mostly bilateral lower extremity leg pain and swelling MD Complaint: shortness of breath, cough, anxiety -: days(s) Severity: moderate Severity scale (1-10): 4 Quality: aching Consistency: constant Improves With: nothing Worsens With: nothing Known History Of: COPD, asthma, congestive heart failure Context: recent URI, recent illness Associated Symptoms: cough Treatments Prior to Arrival: none - Related Data Home Medications Medication Instructions Recorded Confirmed Losartan [Cozaar] 25 mg PO HS 07/09/22 01/07/24 hydrOXYzine pamoate [Vistaril] 50 mg PO HS PRN 07/09/22 01/07/24 Atorvastatin [Lipitor] 10 mg PO DAILY 08/01/22 01/07/24 Apixaban [Eliquis] 5 mg PO BID 12/12/23 01/07/24 Finasteride [Proscar] 5 mg PO DAILY 12/12/23 01/07/24 QUEtiapine [SEROquel] 50 mg PO HS 12/12/23 01/07/24 Sertraline [Zoloft] 50 mg PO DAILY 12/12/23 01/07/24 Previous Rx's Medication Instructions Recorded Dapagliflozin Propanediol [Farxiga] 10 mg PO DAILY 30 Days #30 tab 09/10/22 Famotidine [Pepcid] 20 mg PO BID #60 tab 09/10/22 Metoprolol Succinate (ER) [Toprol 100 mg PO DAILY 30 Days #30 tab 09/10/22 XL] busPIRone HCl [Buspar] 5 mg PO TID 30 Days #90 tab 09/10/22 Pregabalin [Lyrica] 100 mg PO TID #3 cap 01/11/23 traMADol HCl [Ultram] 50 mg PO Q6H PRN #4 tab 01/11/23 Furosemide [Lasix] 40 mg PO BID@0900,1600 #60 tab 12/18/23 Ipratropium-Albuterol Nebulize 3 ml INHALATION RT-QID PRN #20 each 12/18/23 [Duoneb 0.5 mg-3 mg/3 ml Soln] Tamsulosin [Flomax] 0.4 mg PO PC-BRKFST #30 cap 12/18/23 polyethylene glycoL 3350 [Miralax] 17 gm PO DAILY PRN packet 12/18/23 Budesonide-Formot 160-4.5 Mcg 2 puff INHALATION RT-BID #1 each 01/14/24 [Symbicort 160-4.5 Mcg Inhaler] Allergies Allergy/AdvReac Type Severity Reaction Status Date / Time No Known Allergies Allergy Verified 01/07/24 16:34 Review of Systems ROS Statement: Those systems with pertinent positive or pertinent negative responses have been documented in the HPI. ROS Other: All systems not noted in ROS Statement are negative. 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 History of Any Multi-Drug Resistant Organisms: MRSA Date of last positivie culture/infection: 11/15/22 MDRO Source:: Left Leg Past Surgical History: Hernia Repair, Joint Replacement, Orthopedic Surgery Additional Past Surgical History / Comment(s): RT ARMAND, rt foot SX, Past Anesthesia/Blood Transfusion Reactions: No Reported Reaction Past Psychological History: Depression Smoking Status: Former smoker Past Alcohol Use History: None Reported Past Drug Use History: None Reported - Past Family History Mother Family Medical History: No Reported History General Exam Limitations: no limitations General appearance: alert, in no apparent distress Head exam: Present: atraumatic, normocephalic, normal inspection Eye exam: Present: normal appearance, PERRL, EOMI. Absent: scleral icterus, c onjunctival injection, periorbital swelling ENT exam: Present: normal exam, mucous membranes moist Neck exam: Present: normal inspection. Absent: tenderness, meningismus, lymphadenopathy Respiratory exam: Present: normal lung sounds bilaterally. Absent: respiratory distress, wheezes, rales, rhonchi, stridor Cardiovascular Exam: Present: regular rate, normal rhythm, normal heart sounds. Absent: systolic murmur, diastolic murmur, rubs, gallop, clicks GI/Abdominal exam: Present: soft, normal bowel sounds. Absent: distended, tenderness, guarding, rebound, rigid Extremities exam: Present: normal inspection, full ROM, normal capillary refill. Absent: tenderness, pedal edema, joint swelling, calf tenderness Back exam: Present: normal inspection Neurological exam: Present: alert, oriented X3, CN II-XII intact Psychiatric exam: Present: normal affect, normal mood Skin exam: Present: warm, dry, intact, normal color. Absent: rash Course Vital Signs 01/07/24 01/07/24 01/07/24 14:23 14:45 15:30 Temperature 97.9 F Pulse Rate 103 H 80 Respiratory 28 H 24 Rate Blood Pressure 158/102 O2 Sat by Pulse 97 Oximetry Fraction of Inspired Oxygen (FIO2) 01/07/24 01/07/24 01/07/24 15:46 16:00 18:31 Temperature Pulse Rate 90 85 84 Respiratory 18 26 H Rate Blood Pressure 131/96 126/88 O2 Sat by Pulse 96 95 Oximetry Fraction of Inspired Oxygen (FIO2) 01/07/24 01/07/24 01/07/24 20:00 22:00 23:10 Temperature Pulse Rate 78 90 Respiratory 24 20 Rate Blood Pressure 111/76 146/80 O2 Sat by Pulse 96 93 L Oximetry Fraction of 21 Inspired Oxygen (FIO2) 01/08/24 01/08/24 01/08/24 00:00 01:00 01:08 Temperature Pulse Rate 78 90 84 Respiratory 24 22 Rate Blood Pressure 145/90 131/81 O2 Sat by Pulse 93 L 93 L Oximetry Fraction of Inspired Oxygen (FIO2) 01/08/24 01/08/24 01/08/24 01:18 03:00 04:00 Temperature Pulse Rate 88 112 H 99 Respiratory 20 20 Rate Blood Pressure 129/84 138/84 O2 Sat by Pulse 93 L 90 L Oximetry Fraction of Inspired Oxygen (FIO2) 01/08/24 01/08/24 01/08/24 06:00 08:14 08:17 Temperature Pulse Rate 115 H 111 H Respiratory 22 Rate Blood Pressure 114/91 O2 Sat by Pulse 91 L 93 L Oximetry Fraction of Inspired Oxygen (FIO2) 01/08/24 01/08/24 01/08/24 08:23 10:27 11:48 Temperature 97.8 F Pulse Rate 114 H 73 93 Respiratory 20 Rate Blood Pressure 161/93 O2 Sat by Pulse 96 Oximetry Fraction of Inspired Oxygen (FIO2) 01/08/24 01/08/24 01/08/24 11:59 15:08 15:39 Temperature 97.9 F Pulse Rate 96 77 87 Respiratory 18 Rate Blood Pressure 143/74 O2 Sat by Pulse 100 Oximetry Fraction of Inspired Oxygen (FIO2) 01/08/24 01/08/24 01/08/24 15:50 17:37 18:00 Temperature 98.3 F 99.0 F Pulse Rate 88 70 78 Respiratory 18 16 Rate Blood Pressure 130/94 111/98 O2 Sat by Pulse 96 94 L Oximetry Fraction of Inspired Oxygen (FIO2) 01/08/24 01/08/24 01/08/24 19:37 19:44 20:15 Temperature Pulse Rate 84 84 76 Respiratory 20 Rate Blood Pressure 136/88 O2 Sat by Pulse 95 Oximetry Fraction of Inspired Oxygen (FIO2) - Reevaluation(s) Reevaluation #1: 01/07/24 14:37 Records reviewed Reevaluation #2: 01/07/24 15:35 Patient symptoms improved Reevaluation #3: 01/07/24 16:32 Informed of results questions answered Reevaluation #4: Was pt. sent in by a medical professional or institution (, PA, RECLAMATION ENGINEER, urgent care, hospital, or longterm...) When possible be specific @ -no Did you speak to anyone other than the patient for history (EMS, parent, family, police, friend...)? What history was obtained from this source @ -no Did you review nursing and triage notes (agree or disagree)? Why? @ -agree Are old charts reviewed (outside hosp., previous admission, EMS record, old EKG, old radiological studies, urgent care reports/EKG's, longterm records)? Report findings @ -yes Differential Diagnosis (chest pain, altered mental status, abdominal pain women, abdominal pain men, vaginal bleeding, weakness, fever, dyspnea, syncope, headache, dizziness, GI bleed, back pain, seizure, CVA, palpatations, mental health, musculoskeletal)? @ -prior EKG interpreted by me (3pts min.). @ -yes X-rays interpreted by me (1pt min.). @ -yes negative for acute disease CT interpreted by me (1pt min.). @ -no U/S interpreted by me (1pt. min.). @ -no What testing was considered but not performed or refused? (CT, X-rays, U/S, labs)? Why? @ -none What meds were considered but not given or refused? Why? @ -none Did you discuss the management of the patient with other professionals (professionals i.e. Dr., PA, RECLAMATION ENGINEER, lab, RT, psych nurse, social studies teacher, criminal lawyer, teacher, stream control officer, case management manager)? Give summary @ -no Was smoking cessation discussed for >3mins.? @ -no Was critical care preformed (if so, how long)? @ -no Were there social determinants of health that impacted care today? How? (Homelessness, low income, unemployed, alcoholism, drug addiction, transportation, low edu. Level, literacy, decrease access to med. care, skilled nursing, rehab)? @ -none Was there de-escalation of care discussed even if they declined (Discuss DNR or withdrawal of care, Hospice)? DNR status @ -no What co-morbidities impacted this encounter? (DM, HTN, Smoking, COPD, CAD, Cancer, CVA, ARF, Chemo, Hep., AIDS, mental health diagnosis, sleep apnea, morbid obesity)? @ -none Was patient admitted / discharged? Hospital course, mention meds given and route, prescriptions, significant lab abnormalities, going to OR and other pertinent info. @ - 58-year-old male who presents to the ER for shortness of breath weakness and leg pain, will be admitted for lower extremity venous stasis ulcers, significant COPD exacerbation generalized pain and leg pain, patient does have hyperkalemia hemolyzed Admitted Undiagnosed new problem with uncertain prognosis? @ -no Drug Therapy requiring intensive monitoring for toxicity (Heparin, Nitro, Insulin, Cardizem)? @ -no Were any procedures done? @ -no Diagnosis/symptom? @ -Venous stasis ulcers Acute, or Chronic, or Acute on Chronic? @ -Acute Uncomplicated (without systemic symptoms) or Complicated (systemic symptoms)? @ -Complicated Side effects of treatment? @ -no Exacerbation, Progression, or Severe Exacerbation? @ -exacerbation Poses a threat to life or bodily function? How? (Chest pain, [place], [place], pneumonia, PE, COPD, DKA, ARF, appy, cholecystitis, CVA, Diverticulitis, Homicidal, Suicidal, threat to staff... and all critical care pts) @ -yes with chest pain? Admitted for admitted Reevaluation #5: MDM differential Dyspnea: Coronary syndrome, arrhythmia, tamponade, asthma, COPD, pulmonary embolism, pneumonia, pneumothorax, pulmonary effusion, anaphylaxis, diabetic ketoacidosis, flailed chest, pulmonary contusion, diaphragmatic rupture, anemia, neuromuscular, this is not meant to be an all-inclusive list. - Consultations Consultation #1: EM who agrees to admit this patient Medical Decision Making - Medical Decision Making 58-year-old male who presents to the ER for shortness of breath weakness and leg pain, will be admitted for lower extremity venous stasis ulcers, significant COPD exacerbation generalized pain and leg pain, patient does have hyperkalemia hemolyzed - Lab Data Result diagrams: 01/14/24 07:45 01/14/24 07:45 Lab Results 01/07/24 01/07/24 01/07/24 Range/Units 14:38 14:38 14:38 WBC 5.9 (3.8-10.6) k/uL RBC 5.85 (4.30-5.90) m/uL Hgb 16.6 (13.0-17.5) gm/dL Hct 51.9 (39.0-53.0) % MCV 88.8 (80.0-100.0) fL MCH 28.3 (25.0-35.0) pg MCHC 31.9 (31.0-37.0) g/dL RDW 16.2 H (11.5-15.5) % Plt Count 115 L D (150-450) k/uL MPV 8.7 Neutrophils % 80 % Lymphocytes % 9 % Monocytes % 6 % Eosinophils % 2 % Basophils % 0 % Neutrophils # 4.8 (1.3-7.7) k/uL Lymphocytes # 0.5 L (1.0-4.8) k/uL Monocytes # 0.4 (0-1.0) k/uL Eosinophils # 0.1 (0-0.7) k/uL Basophils # 0.0 (0-0.2) k/uL Anisocytosis Slight PT 10.1 (10.0-12.5) sec INR 0.9 (<1.2) APTT 23.6 (22.0-30.0) sec Sodium 140 (137-145) mmol/L Potassium 6.2 H* (3.5-5.1) mmol/L Chloride 111 H (98-107) mmol/L Carbon Dioxide 24 (22-30) mmol/L Anion Gap 5 mmol/L BUN 60 H (9-20) mg/dL Creatinine 1.96 H (0.66-1.25) mg/dL Est GFR (CKD-EPI)AfAm 42 (>60 ml/min/1.73 sqM) Est GFR (CKD-EPI)NonAf 36 (>60 ml/min/1.73 sqM) Glucose 126 H (74-99) mg/dL Plasma Lactic Acid Ankur (0.7-2.0) mmol/L Calcium 9.0 (8.4-10.2) mg/dL Magnesium 2.3 (1.6-2.3) mg/dL Total Bilirubin 0.9 (0.2-1.3) mg/dL AST 34 (17-59) U/L ALT 23 (4-49) U/L Alkaline Phosphatase 93 (38-126) U/L Troponin I (0.000-0.034) ng/mL NT-Pro-B Natriuret Pep 1660 pg/mL Total Protein 7.0 (6.3-8.2) g/dL Albumin 4.1 (3.5-5.0) g/dL 01/07/24 01/07/24 Range/Units 14:38 14:38 WBC (3.8-10.6) k/uL RBC (4.30-5.90) m/uL Hgb (13.0-17.5) gm/dL Hct (39.0-53.0) % MCV (80.0-100.0) fL MCH (25.0-35.0) pg MCHC (31.0-37.0) g/dL RDW (11.5-15.5) % Plt Count (150-450) k/uL MPV Neutrophils % % Lymphocytes % % Monocytes % % Eosinophils % % Basophils % % Neutrophils # (1.3-7.7) k/uL Lymphocytes # (1.0-4.8) k/uL Monocytes # (0-1.0) k/uL Eosinophils # (0-0.7) k/uL Basophils # (0-0.2) k/uL Anisocytosis PT (10.0-12.5) sec INR (<1.2) APTT (22.0-30.0) sec Sodium (137-145) mmol/L Potassium (3.5-5.1) mmol/L Chloride (98-107) mmol/L Carbon Dioxide (22-30) mmol/L Anion Gap mmol/L BUN (9-20) mg/dL Creatinine (0.66-1.25) mg/dL Est GFR (CKD-EPI)AfAm (>60 ml/min/1.73 sqM) Est GFR (CKD-EPI)NonAf (>60 ml/min/1.73 sqM) Glucose (74-99) mg/dL Plasma Lactic Acid Ankur 1.5 (0.7-2.0) mmol/L Calcium (8.4-10.2) mg/dL Magnesium (1.6-2.3) mg/dL Total Bilirubin (0.2-1.3) mg/dL AST (17-59) U/L ALT (4-49) U/L Alkaline Phosphatase (38-126) U/L Troponin I <0.012 (0.000-0.034) ng/mL NT-Pro-B Natriuret Pep pg/mL Total Protein (6.3-8.2) g/dL Albumin (3.5-5.0) g/dL - EKG Data -: EKG Interpreted by Me (EKG is A-fib 101 QRS 121 QTc 407) - Radiology Data Radiology results: report reviewed (Chest x-ray is positive for CHF), image reviewed Disposition Clinical Impression: CHF (congestive heart failure), COPD (chronic obstructive pulmonary disease), Venous stasis, Left leg cellulitis, Dyspnea, Pedal edema, Pulmonary edema, Unable to ambulate, Acute exacerbation of chronic obstructive pulmonary disease Disposition: ADMITTED IP TO THIS HOSP Condition: Fair Is patient prescribed a controlled substance at d/c from ED?: No Time of Disposition: 16:30
[2024-01-07 14:51] LABS: Anisocytosis Slight; Basophils % (A) 0 %; Eosinophils # (A) 0.1 k/uL (0-0.7); Eosinophils % (A) 2 %; HCT 51.9 % (39.0-53.0); HGB 16.6 gm/dL (13.0-17.5); Lymphocytes # (A) 0.5 k/uL (1.0-4.8); Lymphocytes % (A) 9 %; MCH 28.3 pg (25.0-35.0); MCHC 31.9 g/dL (31.0-37.0); MCV 88.8 fL (80.0-100.0); Mean Platelet Volume 8.7; Monocytes # (A) 0.4 k/uL (0-1.0); Monocytes % (A) 6 %; Neutrophils # (A) 4.8 k/uL (1.3-7.7); Neutrophils % (A) 80 %; RBC 5.85 m/uL (4.30-5.90); RDW 16.2 % (11.5-15.5); WBC 5.9 k/uL (3.8-10.6)
[2024-01-07 14:58] LABS: Platelet Count 115 k/uL (150-450)
[2024-01-07] MEDS: HYDROmorphone 1 MG/ML 1 ML SYRINGE IVP STA (14:59)
[2024-01-07 15:03] LABS: INR 0.9 (<1.2); Partial Thromboplastin Time 23.6 sec (22.0-30.0); Prothrombin Time 10.1 sec (10.0-12.5)
[2024-01-07 15:21] LABS: NT-Pro-B-Type Natriuretic Pept 1660 pg/mL
--- NOTE | 2024-01-07 15:27 | XR ---
EXAMINATION TYPE: XR chest 1V portable DATE OF EXAM: 01/07/2024 COMPARISON: 12/12/2023 INDICATION: Short of breath TECHNIQUE: Single frontal view of the chest is obtained. FINDINGS: The heart size is enlarged. The pulmonary vasculature is prominent. Minimal increased lung markings are present greater in the lung bases. IMPRESSION: 1. Clinical correlation recommended for developing congestive heart failure.
[2024-01-07] MEDS: IPRATROPIUM-ALBUTEROL 3 ML NEB INHALATION STA (15:30)
[2024-01-07 15:33] LABS: ALT 23 U/L (4-49); African American GFR (CKD) 42 (>60 ml/min/1.73 sqM); Albumin 4.1 g/dL (3.5-5.0); Anion Gap 5 mmol/L; Blood Urea Nitrogen 60 mg/dL (9-20); Carbon Dioxide 24 mmol/L (22-30); Chloride 111 mmol/L (98-107); Glucose 126 mg/dL (74-99); Non-African American GFR(CKD) 36 (>60 ml/min/1.73 sqM); Sodium 140 mmol/L (137-145); Total Bilirubin 0.9 mg/dL (0.2-1.3)
[2024-01-07 15:38] LABS: AST 34 U/L (17-59); Alkaline Phosphatase 93 U/L (38-126); Magnesium 2.3 mg/dL (1.6-2.3); Potassium 6.2 mmol/L (3.5-5.1)
[2024-01-07] MEDS ORDERED: ONDANSETRON 4 MG/2 ML VIAL IVP PRN (16:28)
[2024-01-07] MEDS ORDERED: NALOXONE 0.4 MG/ML 1 ML VIAL IV PRN (16:28)
[2024-01-07] MEDS: SODIUM CHLORIDE 0.9% 1,000 ML IV SCH (16:50)
[2024-01-07] MEDS: FUROSEMIDE 10 MG/ML 4 ML VIAL IV STA (16:50)
[2024-01-07] MEDS: SODIUM ZIRCONIUM CYCLOSILICATE 10 GM PACKET PO ONE (16:51)
[2024-01-07] MEDS: DEXTROSE 50% SYRINGE 50 ML IVP STA (16:51)
[2024-01-07] MEDS: INSULIN REGULAR 100 UNIT/ML VIAL (IV) IV ONE (16:51)
[2024-01-07] MEDS: HYDROmorphone 1 MG/ML 1 ML SYRINGE IVP PRN (20:46)
[2024-01-07] MEDS: FUROSEMIDE 10 MG/ML 4 ML VIAL IV SCH (20:51)
[2024-01-08] MEDS ORDERED: hydrOXYzine pamoate 25 MG CAP PO PRN (00:59)
[2024-01-08] MEDS: IPRATROPIUM-ALBUTEROL 3 ML NEB INHALATION PRN (01:08)
--- NOTE | 2024-01-08 01:18 | P.CNPUL ---
History of Present Illness Consult date: 01/08/24 Requesting physician: Edmundo Clifford Reason for consult: COPD Chief complaint: increased lower extremity swelling and pain History of present illness: Patient is a 58-year-old white male with past medical history significant for hypertension, hyperlipidemia, diastolic congestive heart failure, atrial fibrillation anticoagulated on Eliquis, chronic kidney disease, morbid obesity, obstructive sleep apnea, former tobacco smoker, severe COPD. He does follow in the the pulmonary office with Dr. Gregory. He is known to have severe obstructive sleep apnea, is not compliant with his CPAP. States his mask is broken, and is unable to get a new one. He is also known to have severe COPD, wi th an FEV1 22% of predicted. He is chronically oxygen dependent on 2 L/m nasal cannula home. Of note, patient had a recent hospitalization with similar presentation 12/12/23 through 12/18/23. He was admitted with an exacerbation of diastolic congestive heart failure, he was diuresed and discharged home. He did have a follow-up echocardiogram performed on this previous admission, which estimated left ventricular ejection fraction of 60-65%, moderate concentric LVH, without any significant valvular dysfunction. He states his breathing was back to baseline on discharge. He returns to the emergency department yesterday afternoon complaining of increased lower extremity swelling and lower extremity pain. There is associated shortness of breath. States he's been compliant with his Lasix medications, but has been voiding less. He currently sitting at the edge of the bed, on 3 L/m nasal cannula, in no respiratory distress. Denies any change in his chronic cough, sputum production, fevers, chest pain. Denies sick contacts. He does have significant weeping lower extremity edema. There are multiple venous stasis ulcers. Legs are erythemic and tender. Chest x-ray showing cardiomegaly with interstitial edema. Consistent with CHF exacerbation. NT proBNP was elevated at 1660. CBC unremarkable. No leukocytosis. BMP: Sodium 140, potassium 6.2, chloride 111, serum bicarb 24, BUN 60, creatinine 1.96, glucose 126. It does appear that he sustained an acute kidney injury, this is on top of his baseline chronic kidney disease. Hyperkalemia was treated in the emergency department with a combination of 10 units regular insulin, 1 amp D50 W, and 10 mg of Lokelma. Lactic acid 1.5. LFTs unremarkable. Troponin less than 0.012.EKG showing atrial fibrillation with controlled ventricular response, with nonspecific ST and T wave abnormalities. No hyperacute T waves or QRS widening. Similar to previous EKGs. Afebrile. Vital signs are stable. Review of Systems REVIEW OF SYSTEMS: CONSTITUTIONAL: reports recent weight gain, but is unable to quantify EYES: Denies change in vision. EARS, NOSE, MOUTH, THROAT: Denies headaches, denies sore throat. CARDIOVASCULAR: Denies chest pain, palpitations or syncopal episodes. Admits orthopnea. He has a hospital bed at home and sleeps with the head elevated. RESPIRATORY: see HPI GASTROINTESTINAL: Denies change in appetite, abdominal pain, nausea and vomiting, or diarrhea GENITOURINARY: Denies hematuria, denies infections. MUSKULOSKELETAL:admits increasing bilateral lower extremity swelling and pain. INTEGUMENTARY:reports multiple nonhealing superficial ulcers on his legs, with a lot of clear drainage. NEUROLOGICAL: Denies recent memory loss, no recent seizure activity. PSYCHIATRIC: Denies anxiety, denies depression. HEMATOLOGIC/LYMPHATIC: Denies anemia, denies enlarged lymph node 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 History of Any Multi-Drug Resistant Organisms: MRSA Date of last positivie culture/infection: 11/15/22 MDRO Source:: Left Leg Past Surgical History: Hernia Repair, Joint Replacement, Orthopedic Surgery Additional Past Surgical History / Comment(s): RT ARMAND, rt foot SX, Past Anesthesia/Blood Transfusion Reactions: No Reported Reaction Past Psychological History: Depression Smoking Status: Former smoker Past Alcohol Use History: None Reported Past Drug Use History: None Reported - Past Family History Mother Family Medical History: No Reported History Medications and Allergies Home Medications Medication Instructions Recorded Confirmed Type Losartan [Cozaar] 25 mg PO HS 07/09/22 01/07/24 History hydrOXYzine pamoate [Vistaril] 50 mg PO HS PRN 07/09/22 01/07/24 History Atorvastatin [Lipitor] 10 mg PO DAILY 08/01/22 01/07/24 History Dapagliflozin Propanediol [Farxiga] 10 mg PO DAILY 30 Days #30 tab 09/10/22 01/07/24 Rx Famotidine [Pepcid] 20 mg PO BID #60 tab 09/10/22 01/07/24 Rx Metoprolol Succinate (ER) [Toprol 100 mg PO DAILY 30 Days #30 tab 09/10/22 01/07/24 Rx XL] busPIRone HCl [Buspar] 5 mg PO TID 30 Days #90 tab 09/10/22 01/07/24 Rx Pregabalin [Lyrica] 100 mg PO TID #3 cap 01/11/23 01/07/24 Rx traMADol HCl [Ultram] 50 mg PO Q6H PRN #4 tab 01/11/23 01/07/24 Rx Apixaban [Eliquis] 5 mg PO BID 12/12/23 01/07/24 History Finasteride [Proscar] 5 mg PO DAILY 12/12/23 01/07/24 History QUEtiapine [SEROquel] 50 mg PO HS 12/12/23 01/07/24 History Sertraline [Zoloft] 50 mg PO DAILY 12/12/23 01/07/24 History Tiotropium 2.5 Mcg/Puff [Spiriva 2 puff INHALATION RT-DAILY 12/12/23 01/07/24 History Respimat 2.5 Mcg] Furosemide [Lasix] 40 mg PO BID@0900,1600 #60 tab 12/18/23 01/07/24 Rx Ipratropium-Albuterol Nebulize 3 ml INHALATION RT-QID PRN #20 each 12/18/23 01/07/24 Rx [Duoneb 0.5 mg-3 mg/3 ml Soln] Tamsulosin [Flomax] 0.4 mg PO PC-BRKFST #30 cap 12/18/23 01/07/24 Rx polyethylene glycoL 3350 [Miralax] 17 gm PO DAILY PRN packet 12/18/23 01/07/24 Rx Allergies Allergy/AdvReac Type Severity Reaction Status Date / Time No Known Allergies Allergy Verified 01/07/24 16:34 Physical Exam Vitals: Vital Signs Temp Pulse Resp BP Pulse Ox FiO2 01/07/24 23:10 21 01/07/24 20:00 78 24 111/76 96 01/07/24 18:31 84 26 H 126/88 95 01/07/24 16:00 85 18 131/96 96 01/07/24 15:46 90 01/07/24 15:30 80 01/07/24 14:45 24 01/07/24 14:23 97.9 F 103 H 28 H 158/102 97 Intake and Output 01/07/24 01/07/24 01/08/24 14:59 22:59 06:59 Output Total 1450 Balance -1450 Output: Urine 1450 Other: Weight 162.84 kg GENERAL EXAM: Alert, morbidly obese 58-year-old white male, sitting up in the bed, comfortable in no apparent distress. HEAD: Normocephalic and atraumatic EYES: Normal reaction of pupils, equal size. NOSE: Clear with pink turbinates. THROAT: No erythema or exudates. NECK: No masses, no JVD. CHEST: No chest wall deformity. LUNGS: Equal air entry with diminished lung sounds bilaterally and faint bibasilar inspiratory crackles. on 3 L per minute nasal cannula. No conversational dyspnea or accessory muscle use.. CVS: distant heart sounds, S1 and S2 normal with no audible murmur, irregular rhythm. No extra heart sounds ABDOMEN: obese abdomen, active bowel sounds, no hepatosplenomegaly, no guarding or rigidity. SPINE: No scoliosis or deformity SKIN: chronic venous stasis changes of bilateral lower extremities along with many superficial venous stasis ulcers, draining clear discharge CENTRAL NERVOUS SYSTEM: No focal deficits, tone is normal in all 4 extremities. EXTREMITIES: There is severe 3+ bilateral lower extremity pitting edema. No clubbing, or cyanosis. Peripheral pulses are intact. Results - Laboratory Findings CBC and BMP: 01/07/24 14:38 01/07/24 14:38 PT/INR, D-dimer PT 10.1 sec (10.0-12.5) 01/07/24 14:38 INR 0.9 (<1.2) 01/07/24 14:38 Abnormal lab findings: Abnormal Labs 01/07/24 01/07/24 14:38 14:38 RDW 16.2 H Plt Count 115 L D Lymphocytes # 0.5 L Potassium 6.2 H* Chloride 111 H BUN 60 H Creatinine 1.96 H Glucose 126 H - Diagnostic Findings Chest x-ray: image reviewed Assessment and Plan Assessment: Acute on chronic hypoxemic respiratory failure, secondary to an exacerbation of chronic diastolic congestive heart failure. Chest x-ray showing cardiomegaly, pulmonary vascular congestion, interstitial edema. NT proBNP elevated at 1660. Very severe chronic obstructive pulmonary disease, with an FEV1 22% of predicted, appears stable Obstructive sleep apnea, patient is noncompliant with his noninvasive positive airway pressure machine, states his mask is broken. Morbid obesity, with a BMI of 48.7 kg/m Acute on chronic kidney disease Hyperkalemia, secondary to above, treated with a combination of 10 units regular insulin, 1 amp D50 W, and one dose of Lokelma Chronic atrial fibrillation, with controlled ventricular response, anticoagulated on Eliquis Chronic lower extremity edema, with multiple venous stasis ulcers History of hypertension History of hyperlipidemia Former tobacco dependence plan: Patient's medications, labs, chest x-ray reviewed Continue supplemental oxygen to maintain oxygen saturation of 90% or greater May utilize hospital provided CPAP HS if able to tolerate while inpatient Continue with diuretics in the form of Lasix 40 mg twice a day Continue maintenance COPD medications in the form of DuoNeb's [id number] and Symbicort inhaler No signs of CO2 narcosis. Patient will need help getting a new mask for his home VPAP auto Resume home medications including Eliquis We will continue to follow, and additional recommendations are forthcoming I have personally seen and examined the patient, performed the documentation and the assessment and plan as written. Number of minutes spent on the visit:20 e. Time with Patient: Greater than 30
[2024-01-08] MEDS: TAMSULOSIN 0.4 MG CAP.ER.24H PO SCH (07:06)
[2024-01-08] MEDS: SYMBICORT 160-4.5 MCG INHALER INHALATION SCH (08:14)
[2024-01-08] MEDS: IPRATROPIUM-ALBUTEROL 3 ML NEB INHALATION SCH (08:14)
[2024-01-08] MEDS ORDERED: FAMOTIDINE 20 MG TAB PO SCH (09:00)
[2024-01-08] MEDS: METOPROLOL SUCCINATE (ER) 100 MG TAB.ER.24H PO SCH (09:28)
[2024-01-08] MEDS: DAPAGLIFLOZIN PROPANEDIOL 10 MG TABLET PO SCH (09:28)
[2024-01-08] MEDS: ATORVASTATIN 10 MG TAB PO SCH (09:28)
[2024-01-08] MEDS: SERTRALINE 50 MG TAB PO SCH (09:28)
[2024-01-08] MEDS: APIXABAN 5 MG TAB PO SCH (09:28)
[2024-01-08] MEDS: busPIRone HCl 5 MG TAB PO SCH (09:28)
[2024-01-08] MEDS: FINASTERIDE 5 MG TAB PO SCH (09:28)
[2024-01-08] MEDS: PREGABALIN 100 MG CAP PO SCH (09:28)
[2024-01-08] MEDS: PANTOPRAZOLE 40 MG/10 ML VIAL IV SCH (09:32)
[2024-01-08] MEDS: FAMOTIDINE 20 MG TAB PO SCH (09:37)
--- NOTE | 2024-01-08 10:11 | P.CRDCN ---
History of Present Illness History of present illness: HISTORY OF PRESENT ILLNESS: This is a 58-year-old male with a past medical history significant for congestive heart failure, atrial fibrillation, hypertension, hyperlipidemia, chronic kidney disease, COPD, and morbid obesity. Patient follows in the office with Dr. Dickerson. We have been asked to see the patient in consultation for congestive heart failure. Patient examined at the bedside in the emergency room. Patient presented to the hospital with a chief complaint of shortness of breath. Patient states he has been feeling short of breath for the past couple days. He also reports having pain in both of his legs. He reports increased lower extremity swelling as well. He denied having any chest pain or pressure. Patient was found to be in acute CHF and was started on IV diuretics. Patient's vital signs are stable. DIAGNOSTICS: - EKG reveals atrial fibrillation with RVR - Chest xray clinical correlation recommended for developing congestive heart failure - Laboratory data: WBC 5.9. Hemoglobin 16.6. Platelet count 115. Sodium 140. Potassium 5.3. BUN 60. Creatinine 1.96. Lactic acid 1.5. Troponin negative x 1. proBNP 1660. - Current home cardiac medications include Eliquis 5 mg twice a day, Lipitor 10 mg daily, Farxiga 10 mg daily, Lasix 40 mg twice a day, losartan 25 mg at night, metoprolol succinate 50 mg daily. - Most recent echocardiogram obtained in November 2023 revealed ejection fraction 60 to 65%, trace to mild MR, trace to mild TR - Lexiscan stress test completed in July 2022 negative for reversible ischemia REVIEW OF SYSTEMS: At the time of my exam: CONSTITUTIONAL: Denies fever or chills. HEENT: Denies blurred vision, vision changes, or eye pain. Denies hemoptysis CARDIOVASCULAR: Denies chest pain. Denies orthopnea. Denies PND. Denies palpitations RESPIRATORY: Reports shortness of breath. GASTROINTESTINAL: Denies abdominal pain. Denies nausea or vomiting. HEMATOLOGIC: Denies bleeding disorders. GENITOURINARY: Denies any blood in urine. SKIN: Denies pruitis. Denies rash. PHYSICAL EXAM: VITAL SIGNS: Reviewed. GENERAL: Well-developed in no acute distress. HEENT: Head is normocephalic. Pupils are equal, round. Sclerae anicteric. Mucous membranes of the mouth are moist. Neck supple. No JVD or thyromegaly LUNGS: Respirations even and unlabored. Lungs with bibasilar crackles HEART: Regular rate and rhythm. S1 and S2 heard. ABDOMEN: Soft. Nondistended. Nontender. EXTREMITIES: Normal range of motion. No clubbing or cyanosis. Peripheral pulses intact. 3+ bilateral lower extremity edema noted with bilateral wounds NEUROLOGIC: Awake and alert. Oriented x 3. ASSESSMENT: Shortness of breath Acute on chronic heart failure with preserved EF, 60 to 65% Persistent atrial fibrillation Hyperkalemia Hypertension Hyperlipidemia Chronic kidney disease COPD Morbid obesity: BMI 48.7 Obstructive sleep apnea, noncompliant with CPAP outpatient PLAN: No need to repeat echocardiogram as this was performed in November 2023 Resume home cardiac medications Continue IV Lasix 40 mg every 12 hours Daily weights, accurate intake and output, and monitoring of kidney function Continue telemetry monitoring Further recommendations pending patient course Nurse practitioner note has been reviewed by physician. Signing provider agrees with the documented findings, assessment, and plan of care documented by [employer] as a scribe. 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 History of Any Multi-Drug Resistant Organisms: MRSA Date of last positivie culture/infection: 11/15/22 MDRO Source:: Left Leg Past Surgical History: Hernia Repair, Joint Replacement, Orthopedic Surgery Additional Past Surgical History / Comment(s): RT ARMAND, rt foot SX, Past Anesthesia/Blood Transfusion Reactions: No Reported Reaction Past Psychological History: Depression Smoking Status: Former smoker Past Alcohol Use History: None Reported Past Drug Use History: None Reported - Past Family History Mother Family Medical History: No Reported History Medications and Allergies Home Medications Medication Instructions Recorded Confirmed Type Losartan [Cozaar] 25 mg PO HS 07/09/22 01/07/24 History hydrOXYzine pamoate [Vistaril] 50 mg PO HS PRN 07/09/22 01/07/24 History Atorvastatin [Lipitor] 10 mg PO DAILY 08/01/22 01/07/24 History Dapagliflozin Propanediol [Farxiga] 10 mg PO DAILY 30 Days #30 tab 09/10/22 01/07/24 Rx Famotidine [Pepcid] 20 mg PO BID #60 tab 09/10/22 01/07/24 Rx Metoprolol Succinate (ER) [Toprol 100 mg PO DAILY 30 Days #30 tab 09/10/22 07/03/24 Rx XL] busPIRone HCl [Buspar] 5 mg PO TID 30 Days #90 tab 09/10/22 01/07/24 Rx Pregabalin [Lyrica] 100 mg PO TID #3 cap 01/11/23 01/07/24 Rx traMADol HCl [Ultram] 50 mg PO Q6H PRN #4 tab 01/11/23 01/07/24 Rx Apixaban [Eliquis] 5 mg PO BID 12/12/23 01/07/24 History Finasteride [Proscar] 5 mg PO DAILY 12/12/23 01/07/24 History QUEtiapine [SEROquel] 50 mg PO HS 12/12/23 01/07/24 History Sertraline [Zoloft] 50 mg PO DAILY 12/12/23 01/07/24 History Tiotropium 2.5 Mcg/Puff [Spiriva 2 puff INHALATION RT-DAILY 12/12/23 01/07/24 History Respimat 2.5 Mcg] Furosemide [Lasix] 40 mg PO BID@0900,1600 #60 tab 12/18/23 01/07/24 Rx Ipratropium-Albuterol Nebulize 3 ml INHALATION RT-QID PRN #20 each 12/18/23 01/07/24 Rx [Duoneb 0.5 mg-3 mg/3 ml Soln] Tamsulosin [Flomax] 0.4 mg PO PC-BRKFST #30 cap 12/18/23 01/07/24 Rx polyethylene glycoL 3350 [Miralax] 17 gm PO DAILY PRN packet 12/18/23 01/07/24 Rx Allergies Allergy/AdvReac Type Severity Reaction Status Date / Time No Known Allergies Allergy Verified 01/07/24 16:34 Physical Exam Vitals: Vital Signs Temp Pulse Resp BP Pulse Ox FiO2 01/08/24 08:23 114 H 01/08/24 08:17 93 L 01/08/24 08:14 111 H 01/08/24 06:00 115 H 22 114/91 91 L 01/08/24 04:00 99 20 138/84 90 L 01/08/24 03:00 112 H 20 129/84 93 L 01/08/24 01:18 88 01/08/24 01:08 84 01/08/24 01:00 90 22 131/81 93 L 01/08/24 00:00 78 24 145/90 93 L 01/07/24 23:10 21 01/07/24 22:00 90 20 146/80 93 L 01/07/24 20:00 78 24 111/76 96 01/07/24 18:31 84 26 H 126/88 95 01/07/24 16:00 85 18 131/96 96 01/07/24 15:46 90 01/07/24 15:30 80 01/07/24 14:45 24 01/07/24 14:23 97.9 F 103 H 28 H 158/102 97 Intake and Output 01/07/24 01/08/24 01/08/24 22:59 06:59 14:59 Output Total 1450 700 500 Balance -1450 -700 -500 Output: Urine 1450 700 500 Results 01/07/24 14:38 01/08/24 01:00 Cardiac Enzymes 01/07/24 01/07/24 Range/Units 14:38 14:38 AST 34 (17-59) U/L Troponin I <0.012 (0.000-0.034) ng/mL Coagulation 01/07/24 Range/Units 14:38 PT 10.1 (10.0-12.5) sec APTT 23.6 (22.0-30.0) sec CBC 01/07/24 Range/Units 14:38 WBC 5.9 (3.8-10.6) k/uL RBC 5.85 (4.30-5.90) m/uL Hgb 16.6 (13.0-17.5) gm/dL Hct 51.9 (39.0-53.0) % Plt Count 115 L D (150-450) k/uL Comprehensive Metabolic Panel 01/07/24 01/08/24 Range/Units 14:38 01:00 Sodium 140 (137-145) mmol/L Potassium 6.2 H* 5.3 H (3.5-5.1) mmol/L Chloride 111 H (98-107) mmol/L Carbon Dioxide 24 (22-30) mmol/L BUN 60 H (9-20) mg/dL Creatinine 1.96 H (0.66-1.25) mg/dL Glucose 126 H (74-99) mg/dL Calcium 9.0 (8.4-10.2) mg/dL AST 34 (17-59) U/L ALT 23 (4-49) U/L Alkaline Phosphatase 93 (38-126) U/L Total Protein 7.0 (6.3-8.2) g/dL Albumin 4.1 (3.5-5.0) g/dL Current Medications Generic Name Dose Route Start Last Admin Trade Name Freq PRN Reason Stop Dose Admin Albuterol/Ipratropium 3 ml 01/08/24 08:00 01/08/24 08:14 Ipratropium-Albuterol 3 Ml Neb INHALATION 3 ml RT-QID OBI Administration Albuterol/Ipratropium 3 ml 01/08/24 01:01 01/08/24 01:08 Ipratropium-Albuterol 3 Ml Neb INHALATION 3 ml RT-Q4H PRN Administration Shortness Of Breath Or Wheezing Apixaban 5 mg 01/08/24 09:00 01/08/24 09:28 Apixaban 5 Mg Tab PO 5 mg BID OBI Administration Protocol Atorvastatin Calcium 10 mg 01/08/24 09:00 01/08/24 09:28 Atorvastatin 10 Mg Tab PO 10 mg DAILY OBI Administration Budesonide/Formoterol Fumarate 2 puff 01/08/24 08:00 01/08/24 08:14 Symbicort 160-4.5 Mcg Inhaler INHALATION 2 puff RT-BID OBI Administration Buspirone HCl 5 mg 01/08/24 09:00 01/08/24 09:28 Buspirone Hcl 5 Mg Tab PO 5 mg TID OBI Administration Dapagliflozin 10 mg 01/08/24 09:00 01/08/24 09:28 Dapagliflozin Propanediol 10 Mg Tablet PO 10 mg DAILY OBI Administration Famotidine 20 mg 01/08/24 10:00 01/08/24 09:37 Famotidine 20 Mg Tab PO 20 mg DAILY OBI Administration Finasteride 5 mg 01/08/24 09:00 01/08/24 09:28 Finasteride 5 Mg Tab PO 5 mg DAILY OBI Administration Furosemide 40 mg 01/07/24 21:00 01/08/24 09:35 Furosemide 10 Mg/Ml 4 Ml Vial IV 40 mg Q12HR OBI Administration Hydromorphone HCl 1 mg 01/07/24 16:28 01/08/24 07:06 Hydromorphone 1 Mg/Ml 1 Ml Syringe IVP 1 mg Q3HR PRN Administration Severe Pain (Scale 7 to 10) Hydroxyzine Pamoate 50 mg 01/08/24 00:59 Hydroxyzine Pamoate 25 Mg Cap PO HS PRN ANXIETY/INSOMNIA Sodium Chloride 1,000 mls @ 20 mls/hr 01/07/24 16:30 01/07/24 16:50 Saline 0.9% IV 20 mls/hr .Q24H OBI Administration Metoprolol Succinate 100 mg 01/08/24 09:00 01/08/24 09:28 Metoprolol Succinate (Er) 100 Mg Tab.Er.24h PO 100 mg DAILY OBI Administration Naloxone HCl 0.2 mg 01/07/24 16:28 Naloxone 0.4 Mg/Ml 1 Ml Vial IV Q2M PRN Opioid Reversal Ondansetron HCl 4 mg 01/07/24 16:28 Ondansetron 4 Mg/2 Ml Vial IVP Q8HR PRN Nausea And Vomiting Pantoprazole Sodium 40 mg 01/08/24 09:00 01/08/24 09:32 Pantoprazole 40 Mg/10 Ml Vial IV 40 mg DAILY OBI Administration Pregabalin 100 mg 01/08/24 09:00 01/08/24 09:28 Pregabalin 100 Mg Cap PO 100 mg TID OBI Administration Quetiapine Fumarate 50 mg 01/08/24 21:00 Quetiapine 50 Mg Tab PO HS OBI Sertraline HCl 50 mg 01/08/24 09:00 01/08/24 09:28 Sertraline 50 Mg Tab PO 50 mg DAILY OBI Administration Tamsulosin HCl 0.4 mg 01/08/24 08:30 01/08/24 07:06 Tamsulosin 0.4 Mg Cap.Er.24h PO 0.4 mg PC-BRKFST OBI Administration Intake and Output 01/07/24 01/08/24 01/08/24 22:59 06:59 14:59 Output Total 1450 700 500 Balance -1450 -700 -500 Output: Urine 1450 700 500 01/07/24 14:38 01/08/24 01:00
--- NOTE | 2024-01-08 10:20 | P.CONS ---
History of Present Illness - Reason for Consult Consult date: 01/08/24 wound care - History of Present Illness This is a 58-year-old patient being seen in ER for a nonhealing ulceration to the left anterior colon and right posterior calf. Patient states that the ulceration started approximately 1 year ago after he had a bout of cellulitis. The ulceration will continue to open and close however it never completely healed. Patient has been utilizing trimancinlone cream and bacitracin to the site. Patient has hemosiderin staining to bilateral lower extremitiy. Patient has a cluster of 2 ulcerations to left anterior lower extremity with Slough and nonviable tissue present with granulation seen to the wound and no tunneling or undermining noted ulcerations measures approximately 1.5 x 1 x 0.1 cm. Right posterior lower extremity has a open ulceration measuring approximately 1 x 1 x 0.1 cm with nonviable tissue fat layer exposure slough present. Minimal granulation noted. Review Of Systems: Constitutional: No fever, no chills, no night sweats. No weight change. No weakness, fatigue or lethargy. No daytime sleepiness. Integumentary:reports wounds, no lesions. No rash or pruritus. No unusual bruising. No change in hair or nails. Physical exam: General Appearance: Alert, cooperative, no distress, appears stated age. Skin: See HPI all other Skin color, texture, tugor normal, no rashes or lesions. Neurologic: Alert oriented x3 Assessment: 1. Nonhealing ulceration left anterior leg with fat layer exposure 2. Nonpressure ulceration of right calf with fat layer exposure 3. Chronic venous hypertension with inflammation and ulcer of the Bilateral lower extremity Plan: 1. Apply honey gel, dry gauze rolled gauze and secure with paper tape. Wrap with Gonzalez wrap. Change Saturday, Saturday, and Saturday Thank you for the consultation any questions to contact the wound care center DNP note has been reviewed and discussed with Dr. Hyde and the impression and plan of care has been directed as dictated. 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 History of Any Multi-Drug Resistant Organisms: MRSA Year Discovered:: 11/15/22 MDRO Source:: Left Leg Past Surgical History: Hernia Repair, Joint Replacement, Orthopedic Surgery Additional Past Surgical History / Comment(s): RT ARMAND, rt foot SX, Past Anesthesia/Blood Transfusion Reactions: No Reported Reaction Past Psychological History: Depression Smoking Status: Former smoker Past Alcohol Use History: None Reported Past Drug Use History: None Reported - Past Family History Mother Family Medical History: No Reported History Medications and Allergies Home Medications Medication Instructions Recorded Confirmed Type Losartan [Cozaar] 25 mg PO HS 07/09/22 01/07/24 History hydrOXYzine pamoate [Vistaril] 50 mg PO HS PRN 07/09/22 01/07/24 History Atorvastatin [Lipitor] 10 mg PO DAILY 08/01/22 01/07/24 History Dapagliflozin Propanediol [Farxiga] 10 mg PO DAILY 30 Days #30 tab 09/10/22 01/07/24 Rx Famotidine [Pepcid] 20 mg PO BID #60 tab 09/10/22 01/07/24 Rx Metoprolol Succinate (ER) [Toprol 100 mg PO DAILY 30 Days #30 tab 09/10/22 01/07/24 Rx XL] busPIRone HCl [Buspar] 5 mg PO TID 30 Days #90 tab 09/10/22 01/07/24 Rx Pregabalin [Lyrica] 100 mg PO TID #3 cap 01/11/23 01/07/24 Rx traMADol HCl [Ultram] 50 mg PO Q6H PRN #4 tab 01/11/23 01/07/24 Rx Apixaban [Eliquis] 5 mg PO BID 12/12/23 01/07/24 History Finasteride [Proscar] 5 mg PO DAILY 12/12/23 01/07/24 History QUEtiapine [SEROquel] 50 mg PO HS 12/12/23 01/07/24 History Sertraline [Zoloft] 50 mg PO DAILY 12/12/23 01/07/24 History Tiotropium 2.5 Mcg/Puff [Spiriva 2 puff INHALATION RT-DAILY 12/12/23 01/07/24 History Respimat 2.5 Mcg] Furosemide [Lasix] 40 mg PO BID@0900,1600 #60 tab 12/18/23 01/07/24 Rx Ipratropium-Albuterol Nebulize 3 ml INHALATION RT-QID PRN #20 each 12/18/23 01/07/24 Rx [Duoneb 0.5 mg-3 mg/3 ml Soln] Tamsulosin [Flomax] 0.4 mg PO PC-BRKFST #30 cap 12/18/23 01/07/24 Rx polyethylene glycoL 3350 [Miralax] 17 gm PO DAILY PRN packet 12/18/23 01/07/24 Rx Allergies Allergy/AdvReac Type Severity Reaction Status Date / Time No Known Allergies Allergy Verified 01/07/24 16:34 Physical Exam Vitals: Vital Signs Temp Pulse Resp BP Pulse Ox FiO2 01/08/24 08:23 114 H 01/08/24 08:17 93 L 01/08/24 08:14 111 H 01/08/24 06:00 115 H 22 114/91 91 L 01/08/24 04:00 99 20 138/84 90 L 01/08/24 03:00 112 H 20 129/84 93 L 01/08/24 01:18 88 01/08/24 01:08 84 01/08/24 01:00 90 22 131/81 93 L 01/08/24 00:00 78 24 145/90 93 L 01/07/24 23:10 21 01/07/24 22:00 90 20 146/80 93 L 01/07/24 20:00 78 24 111/76 96 01/07/24 18:31 84 26 H 126/88 95 01/07/24 16:00 85 18 131/96 96 01/07/24 15:46 90 01/07/24 15:30 80 01/07/24 14:45 24 01/07/24 14:23 97.9 F 103 H 28 H 158/102 97 Intake and Output 01/07/24 01/08/24 01/08/24 22:59 06:59 14:59 Output Total 1450 700 500 Balance -1450 -700 -500 Output: Urine 1450 700 500 Results CBC & Chem 7: 01/07/24 14:38 01/08/24 01:00 Labs: Abnormal Lab Results - Last 24 Hours (Table) 01/07/24 01/07/24 01/08/24 Range/Units 14:38 14:38 01:00 RDW 16.2 H (11.5-15.5) % Plt Count 115 L D (150-450) k/uL Lymphocytes # 0.5 L (1.0-4.8) k/uL Potassium 6.2 H* 5.3 H (3.5-5.1) mmol/L Chloride 111 H (98-107) mmol/L BUN 60 H (9-20) mg/dL Creatinine 1.96 H (0.66-1.25) mg/dL Glucose 126 H (74-99) mg/dL Assessment and Plan (1) Non-pressure chronic ulcer of right calf with fat layer exposed Current Visit: Yes Status: Acute Code(s): L97.212 - NON-PRESSURE CHRONIC ULCER OF RIGHT CALF W FAT LAYER EXPOSED SNOMED Code(s): 12739117381448461 (2) Chronic venous hypertension w/ulcer and inflammation involv both sides Current Visit: Yes Status: Acute Code(s): I87.333 - CHRONIC VENOUS HTN W ULCER AND INFLAM OF BILATERAL LOW EXTRM SNOMED Code(s): 523050403 (3) Non-pressure chronic ulcer of other part of left lower leg with fat layer exposed Current Visit: No Status: Acute Code(s): L97.822 - NON-PRS CHRONIC ULCER OTH PRT L LOW LEG W FAT LAYER EXPOSED SNOMED Code(s): 19911236256001392
--- NOTE | 2024-01-08 11:34 | P.GSCN ---
History of Present Illness Consult date: 01/08/24 Reason for Consult: Known Requesting physician: Edmundo Clifford History of present illness: 58-year-old male with multiple comorbidities including morbid obesity, venous stasis, varicose veins, heart failure,, hypertension, hyperlipidemia, atrial fibrillation on Eliquis, chronic kidney disease, obstructive sleep apnea, former tobacco smoker and COPD presented to the emergency department with complaints of shortness of breath and lower extremity swelling and weeping. Patient states he has had lower extremity swelling with varicose veins and lower extremity wounds to the left leg for the last 2 years duration. He has been seen before in the wound clinic. Vascular surgery was consulted as known however this patient has never been seen by vascular surgery in this hospital and not in either of the offices. Patient states he gets lower extremity discomfort swelling and weeping again has had the wounds for 2 years. Also has shooting pain/neuropathy in his feet. Currently being admitted for acute on chronic hypoxemic respiratory failure. Review of Systems A 14 point review systems was completed all pertinent positives and negatives as stated in the HPI. 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 History of Any Multi-Drug Resistant Organisms: MRSA Year Discovered:: 11/15/22 MDRO Source:: Left Leg Past Surgical History: Hernia Repair, Joint Replacement, Orthopedic Surgery Additional Past Surgical History / Comment(s): RT ARMAND, rt foot SX, Past Anesthesia/Blood Transfusion Reactions: No Reported Reaction Past Psychological History: Depression Smoking Status: Former smoker Past Alcohol Use History: None Reported Past Drug Use History: None Reported - Past Family History Mother Family Medical History: No Reported History Medications and Allergies Home Medications Medication Instructions Recorded Confirmed Type Losartan [Cozaar] 25 mg PO HS 07/09/22 01/07/24 History hydrOXYzine pamoate [Vistaril] 50 mg PO HS PRN 07/09/22 01/07/24 History Atorvastatin [Lipitor] 10 mg PO DAILY 08/01/22 01/07/24 History Dapagliflozin Propanediol [Farxiga] 10 mg PO DAILY 30 Days #30 tab 09/10/22 01/07/24 Rx Famotidine [Pepcid] 20 mg PO BID #60 tab 09/10/22 01/07/24 Rx Metoprolol Succinate (ER) [Toprol 100 mg PO DAILY 30 Days #30 tab 09/10/22 01/07/24 Rx XL] busPIRone HCl [Buspar] 5 mg PO TID 30 Days #90 tab 09/10/22 01/07/24 Rx Pregabalin [Lyrica] 100 mg PO TID #3 cap 01/11/23 01/07/24 Rx traMADol HCl [Ultram] 50 mg PO Q6H PRN #4 tab 01/11/23 01/07/24 Rx Apixaban [Eliquis] 5 mg PO BID 12/12/23 01/07/24 History Finasteride [Proscar] 5 mg PO DAILY 12/12/23 01/07/24 History QUEtiapine [SEROquel] 50 mg PO HS 12/12/23 01/07/24 History Sertraline [Zoloft] 50 mg PO DAILY 12/12/23 01/07/24 History Tiotropium 2.5 Mcg/Puff [Spiriva 2 puff INHALATION RT-DAILY 12/12/23 01/07/24 History Respimat 2.5 Mcg] Furosemide [Lasix] 40 mg PO BID@0900,1600 #60 tab 12/18/23 01/07/24 Rx Ipratropium-Albuterol Nebulize 3 ml INHALATION RT-QID PRN #20 each 12/18/23 01/07/24 Rx [Duoneb 0.5 mg-3 mg/3 ml Soln] Tamsulosin [Flomax] 0.4 mg PO PC-BRKFST #30 cap 12/18/23 01/07/24 Rx polyethylene glycoL 3350 [Miralax] 17 gm PO DAILY PRN packet 12/18/23 01/07/24 Rx Allergies Allergy/AdvReac Type Severity Reaction Status Date / Time No Known Allergies Allergy Verified 01/07/24 16:34 Surgical - Exam Vital Signs Temp Pulse Resp BP Pulse Ox 97.9 F 103 H 28 H 158/102 97 01/07/24 14:23 01/07/24 14:23 01/07/24 14:23 01/07/24 14:23 01/07/24 14:23 General appearance: The patient is alert, oriented, appears in no acute distress. Morbidly obese. HET: Head is normocephalic and atraumatic. Pupils are equal and reactive. Neck: Supple. Heart: Regular. Lungs: Equal expansion, normal respiratory effort. Abdomen: Soft, nontender, nondistended. Extremities: Bilateral lower extremity edema, venous stasis with venous dermatitis, left lower extremity with multiple venous wounds with clear drainage. Varicosities to bilateral lower extremities. Palpable bilateral DP pulses. Neurological: No focal deficits. Strength and sensation are grossly intact. Results - Labs 01/07/24 14:38 01/08/24 01:00 Abnormal Lab Results - Last 24 Hours (Table) 01/07/24 01/07/24 01/08/24 Range/Units 14:38 14:38 01:00 RDW 16.2 H (11.5-15.5) % Plt Count 115 L D (150-450) k/uL Lymphocytes # 0.5 L (1.0-4.8) k/uL Potassium 6.2 H* 5.3 H (3.5-5.1) mmol/L Chloride 111 H (98-107) mmol/L BUN 60 H (9-20) mg/dL Creatinine 1.96 H (0.66-1.25) mg/dL Glucose 126 H (74-99) mg/dL Diabetes panel 01/07/24 01/08/24 Range/Units 14:38 01:00 Sodium 140 (137-145) mmol/L Potassium 6.2 H* 5.3 H (3.5-5.1) mmol/L Chloride 111 H (98-107) mmol/L Carbon Dioxide 24 (22-30) mmol/L BUN 60 H (9-20) mg/dL Creatinine 1.96 H (0.66-1.25) mg/dL Glucose 126 H (74-99) mg/dL Calcium 9.0 (8.4-10.2) mg/dL AST 34 (17-59) U/L ALT 23 (4-49) U/L Alkaline Phosphatase 93 (38-126) U/L Total Protein 7.0 (6.3-8.2) g/dL Albumin 4.1 (3.5-5.0) g/dL Calcium panel 01/07/24 Range/Units 14:38 Calcium 9.0 (8.4-10.2) mg/dL Albumin 4.1 (3.5-5.0) g/dL Pituitary panel 01/07/24 01/08/24 Range/Units 14:38 01:00 Sodium 140 (137-145) mmol/L Potassium 6.2 H* 5.3 H (3.5-5.1) mmol/L Chloride 111 H (98-107) mmol/L Carbon Dioxide 24 (22-30) mmol/L BUN 60 H (9-20) mg/dL Creatinine 1.96 H (0.66-1.25) mg/dL Glucose 126 H (74-99) mg/dL Calcium 9.0 (8.4-10.2) mg/dL Adrenal panel 01/07/24 01/08/24 Range/Units 14:38 01:00 Sodium 140 (137-145) mmol/L Potassium 6.2 H* 5.3 H (3.5-5.1) mmol/L Chloride 111 H (98-107) mmol/L Carbon Dioxide 24 (22-30) mmol/L BUN 60 H (9-20) mg/dL Creatinine 1.96 H (0.66-1.25) mg/dL Glucose 126 H (74-99) mg/dL Calcium 9.0 (8.4-10.2) mg/dL Total Bilirubin 0.9 (0.2-1.3) mg/dL AST 34 (17-59) U/L ALT 23 (4-49) U/L Alkaline Phosphatase 93 (38-126) U/L Total Protein 7.0 (6.3-8.2) g/dL Albumin 4.1 (3.5-5.0) g/dL - Imaging Comments: Arterial duplex bilateral lower extremities. OVIDIO right 1.08 left 0.99 no arterial disease Assessment and Plan Assessment: 1. Bilateral lower extremity edema 2. Bilateral lower extremity venous stasis/dermatitis 3. Left lower extremity venous ulcers 4. Morbid obesity Plan: 1. Arterial ultrasound bilateral lower extremities ordered and reviewed 2. Local wound care per recommendations from wound clinic 3. This is a patient that has not been seen by our vascular surgery office however patient certainly can follow-up as needed if he so wishes for venous insufficiency and varicose veins 4. There is no indication for any vascular surgical intervention Thank you for this consultation, we will sign off at this time. The impression and plan of care has been dictated as directed. Dr. Cisneros I performed a history and examination of this patient, discussed the same with the dictator. I agree with the dictator's note ,documented as a scribe. Any additional findings or plans will be noted.
--- NOTE | 2024-01-08 12:23 | US ---
EXAMINATION TYPE: US arterial LE multi level DATE OF EXAM: 01/08/2024 10:47 AM CLINICAL INDICATION: Male, 58 years old with history of non-healing LE wounds; non healing wounds History of: Smoker: Prior Hypertension: N Diabetic: N Hyperlipidemia: N TIA/CVA: N Previous Vascular Surgery: N CAD: N WI: N Vascular Ulcers: Y Claudication: N Gangrene: N Doppler Waveforms: Right: Multiphasic Left: Multiphasic Right Brachial Pressure: IV Left Brachial Pressure: 163 Ankle-Brachial Indices: Right: 1.1 Left: 1.0 (Vessel hardening > 1.4; Normal 0.9 - 1.4, Moderate 0.7 - 0.9, Severe 0.5-0.7) Toe Brachial Indices: Right: 0.6 Left: 0.7 IMPRESSION: 1. Severe narrowing of distal right digital artery. There is moderate narrowing of the distal left in ternal artery
--- NOTE | 2024-01-08 12:46 | P.NPCON ---
History of Present Illness - Reason for Consult acute renal failure - History of Present Illness patient is a 58-year-old male with history of chronic diastolic CHF, hypertension, A. fib and COPD.patient has had multiple admissions for volume overload and CHF exacerbation. he was recently discharged on 12/18/2023 after admission for CHF exacerbation. patient is admitted to the hospital with history of increased shortness of breath over the past 1 week, Progressively getting worse and associated with i ncreased swelling in the legs. He denied any chest pain. Patient denies any significant change in his diuretics. He also denied any change in his diet. Serum creatinine was 1.9 on admission. Previous creatinine 1.16 on 12/18/2023. patient has been voiding well. Potassium was elevated at 6.2 and improved to 5.3 today. Maintained on losartan. No history of fever chills nausea vomiting or abdominal pain. No history of use of NSAIDs Review of Systems as per HPI 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 History of Any Multi-Drug Resistant Organisms: MRSA Date of last positivie culture/infection: 11/15/22 MDRO Source:: Left Leg Past Surgical History: Hernia Repair, Joint Replacement, Orthopedic Surgery Additional Past Surgical History / Comment(s): RT ARMAND, rt foot SX, Past Anesthesia/Blood Transfusion Reactions: No Reported Reaction Past Psychological History: Depression Smoking Status: Former smoker Past Alcohol Use History: None Reported Past Drug Use History: None Reported - Past Family History Mother Family Medical History: No Reported History Medications and Allergies Home Medications Medication Instructions Recorded Confirmed Type Losartan [Cozaar] 25 mg PO HS 07/09/22 01/07/24 History hydrOXYzine pamoate [Vistaril] 50 mg PO HS PRN 07/09/22 01/07/24 History Atorvastatin [Lipitor] 10 mg PO DAILY 08/01/22 01/07/24 History Dapagliflozin Propanediol [Farxiga] 10 mg PO DAILY 30 Days #30 tab 09/10/22 01/07/24 Rx Famotidine [Pepcid] 20 mg PO BID #60 tab 09/10/22 01/07/24 Rx Metoprolol Succinate (ER) [Toprol 100 mg PO DAILY 30 Days #30 tab 09/10/22 01/07/24 Rx XL] busPIRone HCl [Buspar] 5 mg PO TID 30 Days #90 tab 09/10/22 01/07/24 Rx Pregabalin [Lyrica] 100 mg PO TID #3 cap 01/11/23 01/07/24 Rx traMADol HCl [Ultram] 50 mg PO Q6H PRN #4 tab 01/11/23 01/07/24 Rx Apixaban [Eliquis] 5 mg PO BID 12/12/23 01/07/24 History Finasteride [Proscar] 5 mg PO DAILY 12/12/23 01/07/24 History QUEtiapine [SEROquel] 50 mg PO HS 12/12/23 01/07/24 History Sertraline [Zoloft] 50 mg PO DAILY 12/12/23 01/07/24 History Tiotropium 2.5 Mcg/Puff [Spiriva 2 puff INHALATION RT-DAILY 12/12/23 01/07/24 History Respimat 2.5 Mcg] Furosemide [Lasix] 40 mg PO BID@0900,1600 #60 tab 12/18/23 01/07/24 Rx Ipratropium-Albuterol Nebulize 3 ml INHALATION RT-QID PRN #20 each 12/18/23 01/07/24 Rx [Duoneb 0.5 mg-3 mg/3 ml Soln] Tamsulosin [Flomax] 0.4 mg PO PC-BRKFST #30 cap 12/18/23 01/07/24 Rx polyethylene glycoL 3350 [Miralax] 17 gm PO DAILY PRN packet 12/18/23 01/07/24 Rx Allergies Allergy/AdvReac Type Severity Reaction Status Date / Time No Known Allergies Allergy Verified 01/07/24 16:34 Physical Exam Vitals: Vital Signs Temp Pulse Resp BP Pulse Ox FiO2 01/08/24 11:59 96 01/08/24 11:48 93 01/08/24 10:27 97.8 F 73 20 161/93 96 01/08/24 08:23 114 H 01/08/24 08:17 93 L 01/08/24 08:14 111 H 01/08/24 06:00 115 H 22 114/91 91 L 01/08/24 04:00 99 20 138/84 90 L 01/08/24 03:00 112 H 20 129/84 93 L 01/08/24 01:18 88 01/08/24 01:08 84 01/08/24 01:00 90 22 131/81 93 L 01/08/24 00:00 78 24 145/90 93 L 01/07/24 23:10 21 01/07/24 22:00 90 20 146/80 93 L 01/07/24 20:00 78 24 111/76 96 01/07/24 18:31 84 26 H 126/88 95 01/07/24 16:00 85 18 131/96 96 01/07/24 15:46 90 01/07/24 15:30 80 01/07/24 14:45 24 01/07/24 14:23 97.9 F 103 H 28 H 158/102 97 Intake and Output 01/07/24 01/08/24 01/08/24 22:59 06:59 14:59 Output Total 1450 700 500 Balance -1450 -700 -500 Output: Urine 1450 700 500 patient is awake, comfortable, no acute distress. Examination of the heart S1 and S2 Examination of the lungs bilateral breath sounds are heard Abdomen is soft nontender Examination of lower extremities shows edema plus bilateral with chronic skin changes CYLINDER DEVALVER exam grossly intact Results - Lab Results Most recent lab results Calcium 9.0 mg/dL (8.4-10.2) 01/07/24 14:38 Magnesium 2.3 mg/dL (1.6-2.3) 01/07/24 14:38 01/07/24 14:38 01/08/24 01:00 Assessment and Plan Assessment: 1. Acute kidney injury cardiorenal, currently being diuresed.check UA. Check ultrasound of the kidneys. Angiotensin receptor blockers currently on hold. 2. Hyperkalemia associated with acute kidney injury and use of angiotensin receptor blockers. 3. Chronic diastolic CHF with acute exacerbation 4. Volume overload 5. type 2 diabetes maintained on farxiga 6. Chronic A. fib Plan: continue to diurese patient. Continue to hold losartan for now Check UA Check ultrasound of the kidneys Repeat labs in a.m. Continue with Farxiga Continue Flomax. Thank you for the consultation. We will continue to follow the patient with you during his hospitalization.
[2024-01-08 13:28] LABS: ALT 23 U/L (4-49); AST 28 U/L (17-59); African American GFR (CKD) 38 (>60 ml/min/1.73 sqM); Albumin 4.4 g/dL (3.5-5.0); Alkaline Phosphatase 94 U/L (38-126); Anion Gap 9 mmol/L; Blood Urea Nitrogen 56 mg/dL (9-20); Calcium 8.7 mg/dL (8.4-10.2); Carbon Dioxide 26 mmol/L (22-30); Chloride 103 mmol/L (98-107); Glucose 155 mg/dL (74-99); Magnesium 1.9 mg/dL (1.6-2.3); Non-African American GFR(CKD) 33 (>60 ml/min/1.73 sqM); Phosphorus 5.3 mg/dL (2.5-4.5); Sodium 138 mmol/L (137-145); Total Bilirubin 0.7 mg/dL (0.2-1.3); Total Protein 7.5 g/dL (6.3-8.2)
[2024-01-08 14:07] LABS: Anisocytosis Slight; Basophils # (A) 0.1 k/uL (0-0.2); Basophils % (A) 1 %; Eosinophils # (A) 0.2 k/uL (0-0.7); Eosinophils % (A) 3 %; HCT 52.5 % (39.0-53.0); HGB 16.9 gm/dL (13.0-17.5); Lymphocytes # (A) 0.6 k/uL (1.0-4.8); Lymphocytes % (A) 9 %; MCH 28.8 pg (25.0-35.0); MCHC 32.1 g/dL (31.0-37.0); MCV 89.6 fL (80.0-100.0); Monocytes # (A) 0.5 k/uL (0-1.0); Monocytes % (A) 7 %; Neutrophils % (A) 77 %; Platelet Count 144 k/uL (150-450); RBC 5.87 m/uL (4.30-5.90); RDW 16.4 % (11.5-15.5); WBC 6.5 k/uL (3.8-10.6)
[2024-01-08 20:56] LABS: Glucose,Whole Blood 159 mg/dL (70-110)
[2024-01-08] MEDS: QUEtiapine 50 MG TAB PO SCH (21:53)
--- NOTE | 2024-01-09 01:19 | P.HPIM ---
History of Present Illness H&P Date: 01/08/24 Chief Complaint: Leg swelling Patient is a 58-year-old male with a past medical history of atrial fibrillation on anticoagulation with Eliquis, chronic CHF, hypertension, hyperlipidemia, obstructive sleep apnea on CPAP at home, anxiety depression and prior history of smoking presents to ER with complaints of worsening bilateral lower extremity swelling and overall not feeling well and also shortness of breath. Patient is also having generalized bodyaches and pains and bilateral lower extremity pain and swelling with weeping fluid. Denies any fever or chills. On admission patient was tachycardic and tachypneic with heart rate 103 and respirations 28 blood pressure 158/102 and pulse ox 97% on 3 L oxygen via nasal cannula. Patient does use oxygen at home. Chest x-ray showed correlate clinically recommended developing CHF. EKG showed atrial fibrillation with rapid ventricular response. Laboratory data showed WBC 5.9 hemoglobin 16.6 and platelets 115 sodium 140 potassium 6.2 with slight hemolysis, chloride 111 bicarb is 24 BUN 16 creatinine 1.96 and blood sugar 126 proBNP 1660 and albumin 4.1 Review of Systems Constitutional: Patient denies any fever or chills . Generalized weakness. No weight loss. Abdomen: Patient denied nausea vomiting and diarrhea and abdominal pain. Cardiovascular: Patient denies any chest pain. Positive for short of breath no palpitations. Worsening leg swelling Respiratory: patient denied any cough or sputum production. Positive for shortness of breath Neurologic: Patient denied any numbness or tingling. no headache. Musculoskeletal: Patient denies any complaints of joint swelling or deformity. Skin: Negative Psychiatric: Negative Endocrine: No heat or cold intolerance. No recent weight gain. Genitourinary: No dysuria or hematuria. All other 14 point ROS negative except the above 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 History of Any Multi-Drug Resistant Organisms: MRSA Date of last positivie culture/infection: 11/15/22 MDRO Source:: Left Leg Past Surgical History: Hernia Repair, Joint Replacement, Orthopedic Surgery Additional Past Surgical History / Comment(s): RT ARMAND, rt foot SX, Past Anesthesia/Blood Transfusion Reactions: No Reported Reaction Past Psychological History: Depression Smoking Status: Former smoker Past Alcohol Use History: None Reported Past Drug Use History: None Reported - Past Family History Mother Family Medical History: No Reported History Medications and Allergies Home Medications Medication Instructions Recorded Confirmed Type Losartan [Cozaar] 25 mg PO HS 07/09/22 01/07/24 History hydrOXYzine pamoate [Vistaril] 50 mg PO HS PRN 07/09/22 01/07/24 History Atorvastatin [Lipitor] 10 mg PO DAILY 08/01/22 01/07/24 History Dapagliflozin Propanediol [Farxiga] 10 mg PO DAILY 30 Days #30 tab 09/10/22 01/07/24 Rx Famotidine [Pepcid] 20 mg PO BID #60 tab 09/10/22 01/07/24 Rx Metoprolol Succinate (ER) [Toprol 100 mg PO DAILY 30 Days #30 tab 09/10/22 01/07/24 Rx XL] busPIRone HCl [Buspar] 5 mg PO TID 30 Days #90 tab 09/10/22 01/07/24 Rx Pregabalin [Lyrica] 100 mg PO TID #3 cap 01/11/23 01/07/24 Rx traMADol HCl [Ultram] 50 mg PO Q6H PRN #4 tab 01/11/23 01/07/24 Rx Apixaban [Eliquis] 5 mg PO BID 12/12/23 01/07/24 History Finasteride [Proscar] 5 mg PO DAILY 12/12/23 01/07/24 History QUEtiapine [SEROquel] 50 mg PO HS 12/12/23 01/07/24 History Sertraline [Zoloft] 50 mg PO DAILY 12/12/23 01/07/24 History Tiotropium 2.5 Mcg/Puff [Spiriva 2 puff INHALATION RT-DAILY 12/12/23 01/07/24 History Respimat 2.5 Mcg] Furosemide [Lasix] 40 mg PO BID@0900,1600 #60 tab 12/18/23 01/07/24 Rx Ipratropium-Albuterol Nebulize 3 ml INHALATION RT-QID PRN #20 each 12/18/23 01/07/24 Rx [Duoneb 0.5 mg-3 mg/3 ml Soln] Tamsulosin [Flomax] 0.4 mg PO PC-BRKFST #30 cap 12/18/23 01/07/24 Rx polyethylene glycoL 3350 [Miralax] 17 gm PO DAILY PRN packet 12/18/23 01/07/24 Rx Allergies Allergy/AdvReac Type Severity Reaction Status Date / Time No Known Allergies Allergy Verified 01/07/24 16:34 Physical Exam Vitals: Vital Signs Temp Pulse Resp BP Pulse Ox FiO2 01/08/24 11:59 96 01/08/24 11:48 93 01/08/24 10:27 97.8 F 73 20 161/93 96 01/08/24 08:23 114 H 01/08/24 08:17 93 L 01/08/24 08:14 111 H 01/08/24 06:00 115 H 22 114/91 91 L 01/08/24 04:00 99 20 138/84 90 L 01/08/24 03:00 112 H 20 129/84 93 L 01/08/24 01:18 88 01/08/24 01:08 84 01/08/24 01:00 90 22 131/81 93 L 01/08/24 00:00 78 24 145/90 93 L 01/07/24 23:10 21 01/07/24 22:00 90 20 146/80 93 L 01/07/24 20:00 78 24 111/76 96 01/07/24 18:31 84 26 H 126/88 95 01/07/24 16:00 85 18 131/96 96 01/07/24 15:46 90 01/07/24 15:30 80 01/07/24 14:45 24 01/07/24 14:23 97.9 F 103 H 28 H 158/102 97 Intake and Output 01/07/24 01/08/24 01/08/24 22:59 06:59 14:59 Output Total 1450 700 500 Balance -1450 -700 -500 Output: Urine 1450 700 500 PHYSICAL EXAMINATION: Patient is lying in the bed comfortably, no acute distress, awake alert and oriented.. HEENT: Normocephalic. Neck is supple. Pupils reactive. Nostrils clear. Oral cavity is moist. Neck reveals no JVD, carotid bruits, or thyromegaly. CHEST EXAMINATION: Trachea is central. Symmetrical expansion. Left basilar crackles. No wheezing. Nonlabored breathing.. CARDIAC: Normal S1, S2 with no gallops. No murmurs ABDOMEN: Soft. Bowel sounds normal. No organomegaly. No abdominal bruits. Extremities: 3+ pedal edema with varicose veins and weeping serous fluid. No clubbing or cyanosis Neurologically awake, alert, oriented x3 with well-coordinated movements. No focal deficits noted Skin: No rash or skin lesions. Psychiatric: Coperative. Nonsuicidal Musculoskeletal: No joint swelling or deformity. Normal range of motion. Results CBC & Chem 7: 01/08/24 10:54 01/08/24 10:54 Labs: Abnormal Lab Results - Last 24 Hours (Table) 01/07/24 01/07/24 01/08/24 Range/Units 14:38 14:38 01:00 RDW 16.2 H (11.5-15.5) % Plt Count 115 L D (150-450) k/uL Lymphocytes # 0.5 L (1.0-4.8) k/uL Potassium 6.2 H* 5.3 H (3.5-5.1) mmol/L Chloride 111 H (98-107) mmol/L BUN 60 H (9-20) mg/dL Creatinine 1.96 H (0.66-1.25) mg/dL Glucose 126 H (74-99) mg/dL Thrombosis Risk Factor Assmnt - DVT/VTE Prophylaxis DVT/VTE Prophylaxis: Pharmacologic Prophylaxis ordered Assessment and Plan Assessment: Bilateral lower extremity swelling with varicose veins and stasis ulcers. Acute on chronic CHF with preserved ejection fraction and volume overload Persistent atrial fibrillation on anticoagulation with Eliquis Hyperkalemia due to acute kidney injury and patient is also on JOY inhibitor's Acute kidney injury likely cardiorenal Chronic kidney disease stage III with baseline creatinine level 1.1-1.2 Thrombocytopenia Hypertension Hyperlipidemia Obstructive sleep apnea on CPAP at home COPD Prior history of smoking Anxiety/depression DVT prophylaxis patient is already on full anticoagulation Plan: Patient be continued on telemonitoring. Continue with diuresis with Lasix IV 40 mg every 12 hourly and monitor renal function closely. Continue DuoNebs and Symbicort. Patient was started back on home medications including Flomax and finasteride. Continue with metoprolol and Eliquis. Cardiology, pulmonary, vascular surgery and nephrology is on board. Prognosis is guarded. Time with Patient: Greater than 30
[2024-01-09 08:50] LABS: African American GFR (CKD) 45 (>60 ml/min/1.73 sqM); Anion Gap 7 mmol/L; Blood Urea Nitrogen 57 mg/dL (9-20); Calcium 8.5 mg/dL (8.4-10.2); Carbon Dioxide 26 mmol/L (22-30); Chloride 105 mmol/L (98-107); Glucose 124 mg/dL (74-99); Non-African American GFR(CKD) 39 (>60 ml/min/1.73 sqM); Potassium 5.1 mmol/L (3.5-5.1); Sodium 138 mmol/L (137-145)
[2024-01-09 08:58] LABS: Anisocytosis Slight; Basophils % (A) 1 %; Eosinophils # (A) 0.2 k/uL (0-0.7); Eosinophils % (A) 2 %; HCT 53.1 % (39.0-53.0); HGB 17.2 gm/dL (13.0-17.5); Lymphocytes # (A) 0.7 k/uL (1.0-4.8); Lymphocytes % (A) 8 %; MCH 28.7 pg (25.0-35.0); MCHC 32.3 g/dL (31.0-37.0); MCV 88.8 fL (80.0-100.0); Mean Platelet Volume 8.8; Monocytes # (A) 0.5 k/uL (0-1.0); Monocytes % (A) 6 %; Neutrophils # (A) 7.2 k/uL (1.3-7.7); Neutrophils % (A) 82 %; Platelet Count 145 k/uL (150-450); RBC 5.98 m/uL (4.30-5.90); RDW 16.1 % (11.5-15.5); WBC 8.8 k/uL (3.8-10.6)
--- NOTE | 2024-01-09 12:52 | P.PN ---
Subjective patient is seen for follow-up for acute kidney injury. He is currently being diuresed. Overall feels better. serum creatinine decreased to 1.8. 24 hour urine output at 2.1 L. Objective - Vital Signs Vital signs: Vital Signs Temp 97.8 F 01/09/24 08:00 Pulse 80 01/09/24 11:48 Resp 18 01/09/24 08:00 BP 160/52 01/09/24 08:00 Pulse Ox 95 01/09/24 10:30 FiO2 21 01/09/24 03:29 Intake & Output 01/08/24 01/09/24 01/09/24 18:59 06:59 18:59 Intake Total 540 356 Output Total 500 600 Balance -500 -60 356 Weight 115.5 kg Intake: Oral 540 356 Output: Urine 500 600 Other: Voiding Method Urinal - Exam patient is awake, comfortable, no acute distress. Examination of the heart S1 and S2 Examination of the lungs bilateral breath sounds are heard Abdomen is soft nontender Examination of lower extremities shows edema plus bilateral with chronic skin changes CARE ANALYST exam grossly intact - Labs CBC & Chem 7: 01/09/24 08:15 01/09/24 08:15 Labs: Abnormal Lab Results - Last 24 Hours (Table) 01/08/24 01/08/24 01/08/24 Range/Units 10:54 10:54 20:55 RBC (4.30-5.90) m/uL Hct (39.0-53.0) % RDW 16.4 H (11.5-15.5) % Plt Count 144 L (150-450) k/uL Lymphocytes # 0.6 L (1.0-4.8) k/uL BUN 56 H (9-20) mg/dL Creatinine 2.14 H (0.66-1.25) mg/dL Glucose 155 H (74-99) mg/dL POC Glucose (mg/dL) 159 H (70-110) mg/dL Phosphorus 5.3 H (2.5-4.5) mg/dL 01/09/24 01/09/24 Range/Units 08:15 08:15 RBC 5.98 H (4.30-5.90) m/uL Hct 53.1 H (39.0-53.0) % RDW 16.1 H (11.5-15.5) % Plt Count 145 L (150-450) k/uL Lymphocytes # 0.7 L (1.0-4.8) k/uL BUN 57 H (9-20) mg/dL Creatinine 1.84 H (0.66-1.25) mg/dL Glucose 124 H (74-99) mg/dL POC Glucose (mg/dL) (70-110) mg/dL Phosphorus (2.5-4.5) mg/dL Assessment and Plan Assessment: 1. Acute kidney injury cardiorenal, currently being diuresed. Check UA. Check ultrasound of the kidneys. Angiotensin receptor blockers currently on hold. 2. Hyperkalemia associated with acute kidney injury and use of angiotensin receptor blockers. 3. Chronic diastolic CHF with acute exacerbation 4. Volume overload 5. type 2 diabetes maintained on farxiga 6. Chronic A. fib Plan: continue to diurese patient. Continue to hold losartan for now Check UA Repeat labs in a.m. Continue with Farxiga Continue Flomax.
--- NOTE | 2024-01-09 13:49 | P.PN ---
Subjective HISTORY OF PRESENT ILLNESS: This is a 58-year-old male with a past medical history significant for congestive heart failure, atrial fibrillation, hypertension, hyperlipidemia, chronic kidney disease, COPD, and morbid obesity. Patient follows in the office with Dr. Dickerson. We have been asked to see the patient in consultation for congestive heart failure. Patient examined at the bedside in the emergency room. Patient presented to the hospital with a chief complaint of shortness of breath. Patient states he has been feeling short of breath for the past couple days. He also reports having pain in both of his legs. He reports increased lower extremity swelling as well. He denied having any chest pain or pressure. Patient was found to be in acute CHF and was started on IV diuretics. Patient's vital signs are stable. DIAGNOSTICS: - EKG reveals atrial fibrillation with RVR - Chest xray clinical correlation recommended for developing congestive heart failure - Laboratory data: WBC 5.9. Hemoglobin 16.6. Platelet count 115. Sodium 140. Potassium 5.3. BUN 60. Creatinine 1.96. Lactic acid 1.5. Troponin negative x 1. proBNP 1660. - Current home cardiac medications include Eliquis 5 mg twice a day, Lipitor 10 mg daily, Farxiga 10 mg daily, Lasix 40 mg twice a day, losartan 25 mg at night, metoprolol succinate 50 mg daily. - Most recent echocardiogram obtained in November 2023 revealed ejection fraction 60 to 65%, trace to mild MR, trace to mild TR - Lexiscan stress test completed in July 2022 negative for reversible ischemia 01/09/2024 Patient examined this morning at the bedside. Patient is sitting up in the marj r. Patient currently denies chest pain or pressure. He reports improvement in his shortness of breath. He reports he has been urinating quite frequently. Creatinine remained stable today at 1.84. PHYSICAL EXAM: VITAL SIGNS: Reviewed. GENERAL: Well-developed in no acute distress. HEENT: Head is normocephalic. Pupils are equal, round. Sclerae anicteric. Mucous membranes of the mouth are moist. Neck supple. No JVD or thyromegaly LUNGS: Respirations even and unlabored. Lungs with bibasilar crackles HEART: Regular rate and rhythm. S1 and S2 heard. ABDOMEN: Soft. Nondistended. Nontender. EXTREMITIES: Normal range of motion. No clubbing or cyanosis. Peripheral pulses intact. 3+ bilateral lower extremity edema noted with bilateral wounds NEUROLOGIC: Awake and alert. Oriented x 3. ASSESSMENT: Shortness of breath Acute on chronic heart failure with preserved EF, 60 to 65% Persistent atrial fibrillation Hyperkalemia Hypertension Hyperlipidemia Chronic kidney disease COPD Morbid obesity: BMI 48.7 Obstructive sleep apnea, noncompliant with CPAP outpatient PLAN: No need to repeat echocardiogram as this was performed in November 2023 Resume home cardiac medications Continue IV Lasix 40 mg every 12 hours Daily weights, accurate intake and output, and monitoring of kidney function Continue telemetry monitoring Further recommendations pending patient course Nurse practitioner note has been reviewed by physician. Signing provider agrees with the documented findings, assessment, and plan of care documented by [employer]IVER as a scribe. Objective - Vital Signs Vital signs: Vital Signs Temp 98.1 F 01/09/24 12:10 Pulse 91 01/09/24 12:10 Resp 18 01/09/24 12:10 BP 124/75 01/09/24 12:10 Pulse Ox 96 01/09/24 12:10 FiO2 21 01/09/24 03:29 Intake & Output 01/08/24 01/09/24 01/09/24 18:59 06:59 18:59 Intake Total 540 356 Output Total 500 600 Balance -500 -60 356 Weight 115.5 kg Intake: Oral 540 356 Output: Urine 500 600 Other: Voiding Method Urinal - Labs CBC & Chem 7: 01/09/24 08:15 01/09/24 08:15 Labs: Abnormal Lab Results - Last 24 Hours (Table) 01/08/24 01/08/24 01/09/24 Range/Units 10:54 20:55 08:15 RBC (4.30-5.90) m/uL Hct (39.0-53.0) % RDW 16.4 H (11.5-15.5) % Plt Count 144 L (150-450) k/uL Lymphocytes # 0.6 L (1.0-4.8) k/uL BUN 57 H (9-20) mg/dL Creatinine 1.84 H (0.66-1.25) mg/dL Glucose 124 H (74-99) mg/dL POC Glucose (mg/dL) 159 H (70-110) mg/dL 01/09/24 Range/Units 08:15 RBC 5.98 H (4.30-5.90) m/uL Hct 53.1 H (39.0-53.0) % RDW 16.1 H (11.5-15.5) % Plt Count 145 L (150-450) k/uL Lymphocytes # 0.7 L (1.0-4.8) k/uL BUN (9-20) mg/dL Creatinine (0.66-1.25) mg/dL Glucose (74-99) mg/dL POC Glucose (mg/dL) (70-110) mg/dL
--- NOTE | 2024-01-09 16:41 | P.PN ---
Subjective Progress Note Date: 01/09/24 Principal diagnosis: Acute on chronic hypoxic respiratory failure secondary to acute exacerbation of chronic diastolic congestive heart failure and underlying COPD FEV1 22% Patient is a 58-year-old white male with past medical history significant for hypertension, hyperlipidemia, diastolic congestive heart failure, atrial fibrillation anticoagulated on Eliquis, chronic kidney disease, morbid obesity, obstructive sleep apnea, former tobacco smoker, severe COPD. He does follow in the the pulmonary office with Dr. Gregory. He is known to have severe obstructive sleep apnea, is not compliant with his CPAP. States his mask is broken, and is unable to get a new one. He is also known to have severe COPD, with an FEV1 22% of predicted. He is chronically oxygen dependent on 2 L/m nasal cannula home. Of note, patient had a recent hospitalization with similar presentation 12/12/23 through 12/18/23. He was admitted with an exacerbation of diastolic congestive heart failure, he was diuresed and discharged home. He did have a follow-up echocardiogram performed on this previous admission, which estimated left ventricular ejection fraction of 60-65%, moderate concentric LVH, without any significant valvular dysfunction. He states his breathing was back to baseline on discharge. He returns to the emergency department yesterday afternoon complaining of increased lower extremity swelling and lower extremity pain. There is associated shortness of breath. States he's been compliant with his Lasix medications, but has been voiding less. He currently sitting at the edge of the bed, on 3 L/m nasal cannula, in no respiratory distress. Denies any change in his chronic cough, sputum production, fevers, chest pain. Denies sick contacts. He does have significant weeping lower extremity edema. There are multiple venous stasis ulcers. Legs are erythemic and tender. Chest x-ray showing cardiomegaly with interstitial edema. Consistent with CHF exacerbation. NT proBNP was elevated at 1660. CBC unremarkable. No leukocytosis. BMP: Sodium 140, potassium 6.2, chloride 111, serum bicarb 24, BUN 60, creatinine 1.96, glucose 126. It does appear that he sustained an acute kidney injury, this is on top of his baseline chronic kidney disease. Hyperkalemia was treated in the emergency department with a combination of 10 units regular insulin, 1 amp D50 W, and 10 mg of Lokelma. Lactic acid 1.5. LFTs unremarkable. Troponin less than 0.012.EKG showing atrial fibrillation with controlled ventricular response, with nonspecific ST and T wave abnormalities. No hyperacute T waves or QRS widening. Similar to previous EKGs. Afebrile. Vital signs are stable. Consider examined today on 01/09/2024, I saw this patient yesterday on consultation, he had acute on chronic diastolic congestive heart failure, patient has been on diuretics, he also has severe COPD and FEV1 of 22%, in addition he has obstructive sleep apnea pulmonary hypertension cor pulmonale with chronic cellulitis of lower extremities. Today the patient is feeling better, breathing easier, on 3 L nasal cannula, O2 saturation 96% Objective - Vital Signs Vital signs: Vital Signs Temp 98.1 F 01/09/24 12:10 Pulse 76 01/09/24 15:45 Resp 18 01/09/24 12:10 BP 124/75 01/09/24 12:10 Pulse Ox 96 01/09/24 12:10 FiO2 21 01/09/24 03:29 Intake & Output 01/08/24 01/09/24 01/09/24 18:59 06:59 18:59 Intake Total 540 712 Output Total 049 204 6846 Balance -500 -60 -738 Weight 115.5 kg Intake: Oral 540 712 Output: Urine 859 616 3749 Other: Voiding Method Urinal - Exam GENERAL EXAM: Reveals 58-year-old white male obese in no distress on 3 L nasal cannula HEAD: Normocephalic and atraumatic EYES: Normal reaction of pupils, equal size. NOSE: Clear with pink turbinates. THROAT: No erythema or exudates. NECK: No masses, no JVD. CHEST: No chest wall deformity. LUNGS: Diminished breath sounds at the bases no crackles rhonchi or wheezes CVS: distant heart sounds, S1 and S2 normal with no audible murmur, irregular rhythm. No extra heart sounds ABDOMEN: obese abdomen, active bowel sounds, no hepatosplenomegaly, no guarding or rigidity. SKIN: chronic venous stasis changes of bilateral lower extremities along with many superficial venous stasis ulcers, draining clear discharge CENTRAL NERVOUS SYSTEM: No focal deficits, tone is normal in all 4 extremities. EXTREMITIES: There is severe 3+ bilateral lower extremity pitting edema. No clubbing, or cyanosis. Peripheral pulses are intact., Multiple ulcerations noted in the lower extremities as noted above - Labs CBC & Chem 7: 01/09/24 08:15 01/09/24 08:15 Labs: Abnormal Lab Results - Last 24 Hours (Table) 01/08/24 01/09/24 01/09/24 Range/Units 20:55 08:15 08:15 RBC 5.98 H (4.30-5.90) m/uL Hct 53.1 H (39.0-53.0) % RDW 16.1 H (11.5-15.5) % Plt Count 145 L (150-450) k/uL Lymphocytes # 0.7 L (1.0-4.8) k/uL BUN 57 H (9-20) mg/dL Creatinine 1.84 H (0.66-1.25) mg/dL Glucose 124 H (74-99) mg/dL POC Glucose (mg/dL) 159 H (70-110) mg/dL Assessment and Plan Assessment: Impression Acute on chronic hypoxemic respiratory failure, secondary to an exacerbation of chronic diastolic congestive heart failure. Chest x-ray showing cardiomegaly, pulmonary vascular congestion, interstitial edema. NT proBNP elevated at 1660. Very severe chronic obstructive pulmonary disease, with an FEV1 22% of predicted, appears stable Obstructive sleep apnea, patient is noncompliant with his noninvasive positive airway pressure machine, states his mask is broken. Morbid obesity, with a BMI of 48.7 kg/m Acute on chronic kidney disease Hyperkalemia, secondary to above, treated with a combination of 10 units regular insulin, 1 amp D50 W, and one dose of LokelmaChronic atrial fibrillation, with controlled ventricular response, anticoagulated on Eliquis Chronic lower extremity edema, with multiple venous stasis ulcers History of hypertension History of hyperlipidemia Former tobacco dependence Recommendation: Continue diuretics patient is on Lasix 40 mg twice daily Continue bronchodilators for COPD Continue oxygen and titrate accordingly Continue Eliquis Use BiPAP as needed and at bedtime Continue to monitor electrolytes and renal profile Will continue to follow Time with Patient: Less than 30
[2024-01-09 20:04] LABS: Appearance,Urine Clear (Clear); Bilirubin,Urine Negative (Negative); Blood,Urine Trace (Negative); Color,Urine Colorless; Glucose,Urine (UA) 3+ (Negative); Ketones,Urine Negative (Negative); Leukocyte Esterase,Urine Negative (Negative); Mucus,Urine Rare /hpf; Nitrite,Urine Negative (Negative); PH, Urine 5.5 (5.0-8.0); Protein,Urine 1+ (Negative); RBC,Urine <1 /hpf (0-5); Specific Gravity,Urine 1.013 (1.001-1.035); Squamous Epithelial Cell,Urine <1 /hpf (0-4); Urobilinogen,Urine <2.0 mg/dL (<2.0); WBC,Urine 1 /hpf (0-5)
[2024-01-10 08:09] LABS: African American GFR (CKD) 47 (>60 ml/min/1.73 sqM); Anion Gap 5 mmol/L; Blood Urea Nitrogen 58 mg/dL (9-20); Calcium 8.8 mg/dL (8.4-10.2); Carbon Dioxide 30 mmol/L (22-30); Chloride 102 mmol/L (98-107); Glucose 111 mg/dL (74-99); Non-African American GFR(CKD) 41 (>60 ml/min/1.73 sqM); Sodium 137 mmol/L (137-145)
--- NOTE | 2024-01-10 13:33 | P.PN ---
Subjective HISTORY OF PRESENT ILLNESS: This is a 58-year-old male with a past medical history significant for congestive heart failure, atrial fibrillation, hypertension, hyperlipidemia, chronic kidney disease, COPD, and morbid obesity. Patient follows in the office with Dr. Dickerson. We have been asked to see the patient in consultation for congestive heart failure. Patient examined at the bedside in the emergency room. Patient presented to the hospital with a chief complaint of shortness of breath. Patient states he has been feeling short of breath for the past couple days. He also reports having pain in both of his legs. He reports increased lower extremity swelling as well. He denied having any chest pain or pressure. Patient was found to be in acute CHF and was started on IV diuretics. Patient's vital signs are stable. DIAGNOSTICS: - EKG reveals atrial fibrillation with RVR - Chest xray clinical correlation recommended for developing congestive heart failure - Laboratory data: WBC 5.9. Hemoglobin 16.6. Platelet count 115. Sodium 140. Potassium 5.3. BUN 60. Creatinine 1.96. Lactic acid 1.5. Troponin negative x 1. proBNP 1660. - Current home cardiac medications include Eliquis 5 mg twice a day, Lipitor 10 mg daily, Farxiga 10 mg daily, Lasix 40 mg twice a day, losartan 25 mg at night, metoprolol succinate 50 mg daily. - Most recent echocardiogram obtained in November 2023 revealed ejection fraction 60 to 65%, trace to mild MR, trace to mild TR - Lexiscan stress test completed in July 2022 negative for reversible ischemia 01/09/2024 Patient examined this morning at the bedside. Patient is sitting up in the marj r. Patient currently denies chest pain or pressure. He reports improvement in his shortness of breath. He reports he has been urinating quite frequently. Creatinine remained stable today at 1.84. 01/10/2024 Patient examined this morning at the bedside. Patient currently denies chest pain or pressure. He currently denies shortness of breath. He remains on IV diuretics. He continues to have lower extremity edema. Creatinine stable today at 1.77. PHYSICAL EXAM: VITAL SIGNS: Reviewed. GENERAL: Well-developed in no acute distress. HEENT: Head is normocephalic. Pupils are equal, round. Sclerae anicteric. Mucous membranes of the mouth are moist. Neck supple. No JVD or thyromegaly LUNGS: Respirations even and unlabored. Lungs diminished bilaterally HEART: Irregular rate and rhythm. S1 and S2 heard. ABDOMEN: Soft. Nondistended. Nontender. EXTREMITIES: Normal range of motion. No clubbing or cyanosis. Peripheral pulses intact. 3+ bilateral lower extremity edema noted with bilateral wounds NEUROLOGIC: Awake and alert. Oriented x 3. ASSESSMENT: Shortness of breath Acute on chronic heart failure with preserved EF, 60 to 65% Persistent atrial fibrillation Hyperkalemia Hypertension Hyperlipidemia Chronic kidney disease COPD Morbid obesity: BMI 48.7 Obstructive sleep apnea, noncompliant with CPAP outpatient PLAN: No need to repeat echocardiogram as this was performed in November 2023 Resume home cardiac medications Continue IV Lasix 40 mg every 12 hours. Possible transition to oral diuretics tomorrow Daily weights, accurate intake and output, and monitoring of kidney function Continue telemetry monitoring Further recommendations pending patient course Nurse practitioner note has been reviewed by physician. Signing provider agrees with the documented findings, assessment, and plan of care documented by SUGGESTION CLERK as a scribe. Objective - Vital Signs Vital signs: Vital Signs Temp 98.2 F 01/10/24 12:00 Pulse 92 01/10/24 12:00 Resp 18 01/10/24 12:00 BP 123/72 01/10/24 12:00 Pulse Ox 94 L 01/10/24 12:00 FiO2 21 01/09/24 03:29 Intake & Output 01/09/24 01/10/24 01/10/24 18:59 06:59 18:59 Intake Total 830 494 360 Output Total 1450 900 900 Balance -620 -406 -540 Weight 96.8 kg Intake: IV 20 Invasive Line 2 20 Oral 830 474 360 Output: Urine 1450 900 900 Other: Voiding Method Urinal Urinal - Labs CBC & Chem 7: 01/09/24 08:15 01/10/24 06:36 Labs: Abnormal Lab Results - Last 24 Hours (Table) 01/09/24 01/10/24 Range/Units 19:54 06:36 BUN 58 H (9-20) mg/dL Creatinine 1.77 H (0.66-1.25) mg/dL Glucose 111 H (74-99) mg/dL Urine Protein 1+ H (Negative) Urine Glucose (UA) 3+ H (Negative) Urine Blood Trace H (Negative) Urine Mucus Rare H (None) /hpf
--- NOTE | 2024-01-10 14:07 | P.PN ---
Subjective Progress Note Date: 01/10/24 Patient is a 58-year-old white male with past medical history significant for hypertension, hyperlipidemia, diastolic congestive heart failure, atrial fibrillation anticoagulated on Eliquis, chronic kidney disease, morbid obesity, obstructive sleep apnea, former tobacco smoker, severe COPD. He does follow in the the pulmonary office with Dr. Gregory. He is known to have severe obstructive sleep apnea, is not compliant with his CPAP. States his mask is broken, and is unable to get a new one. He is also known to have severe COPD, with an FEV1 22% of predicted. He is chronically oxygen dependent on 2 L/m nasal cannula home. Of note, patient had a recent hospitalization with similar presentation 12/12/23 through 12/18/23. He was admitted with an exacerbation of diastolic congestive heart failure, he was diuresed and discharged home. He did have a follow-up echocardiogram performed on this previous admission, which estimated left ventricular ejection fraction of 60-65%, moderate concentric LVH, without any significant valvular dysfunction. He states his breathing was back to baseline on discharge. He returns to the emergency department yesterday afternoon complaining of increased lower extremity swelling and lower extremity pain. There is associated shortness of breath. States he's been compliant with his Lasix medications, but has been voiding less. He currently sitting at the edge of the bed, on 3 L/m nasal cannula, in no respiratory distress. Denies any change in his chronic cough, sputum production, fevers, chest pain. Denies sick contacts. He does have significant weeping lower extremity edema. There are multiple venous stasis ulcers. Legs are erythemic and tender. Chest x-ray showing cardiomegaly with interstitial edema. Consistent with CHF exacerbation. NT proBNP was elevated at 1660. CBC unremarkable. No leukocytosis. BMP: Sodium 140, potassium 6.2, chloride 111, serum bicarb 24, BUN 60, creatinine 1.96, glucose 126. It does appear that he sustained an acute kidney injury, this is on top of his baseline chronic kidney disease. Hyperkalemia was treated in [facility] emergency department with a combination of 10 units regular insulin, 1 amp D50 W, and 10 mg of Lokelma. Lactic acid 1.5. LFTs unremarkable. Troponin less than 0.012.EKG showing atrial fibrillation with controlled ventricular response, with nonspecific ST and T wave abnormalities. No hyperacute T waves or QRS widening. Similar to previous EKGs. Afebrile. Vital signs are stable. Consider examined today on 01/09/2024, I saw this patient yesterday on consultation, he had acute on chronic diastolic congestive heart failure, patient has been on diuretics, he also has severe COPD and FEV1 of 22%, in addition he has obstructive sleep apnea pulmonary hypertension cor pulmonale with chronic cellulitis of lower extremities. Today the patient is feeling better, breathing easier, on 3 L nasal cannula, O2 saturation 96% The patient is seen today January 10, 2024 in follow-up on the selective care unit. He is currently resting comfortably in bed. Awake and alert in no acute distress. He is currently on his CPAP as respiratory therapy were able to get him a new facemask that he tolerates and will hopefully increase his compliance. Sodium 137. Potassium 5.0. Bicarb 30. BUN 58. Creatinine 1.77. Glucose 111. He is continued on DuoNeb inhalations, Symbicort. Remains on IV diuretics. Anticoagulated with Eliquis. Currently in a -1 L balance. Objective - Vital Signs Vital signs: Vital Signs Temp 98.2 F 01/10/24 12:00 Pulse 92 01/10/24 12:00 Resp 18 01/10/24 12:00 BP 123/72 01/10/24 12:00 Pulse Ox 94 L 01/10/24 12:00 FiO2 21 01/09/24 03:29 Intake & Output 01/09/24 01/10/24 01/10/24 18:59 06:59 18:59 Intake Total 830 494 360 Output Total 1450 900 900 Balance -620 -406 -540 Weight 96.8 kg Intake: IV 20 Invasive Line 2 20 Oral 830 474 360 Output: Urine 1450 900 900 Other: Voiding Method Urinal Urinal - Exam GENERAL EXAM: Reveals a 58-year-old male, obese, in no distress, alternating wit h CPAP and currently on on 3 L nasal cannula HEAD: Normocephalic and atraumatic EYES: Normal reaction of pupils, equal size. NOSE: Clear with pink turbinates. THROAT: No erythema or exudates. NECK: No masses, no JVD. CHEST: No chest wall deformity. LUNGS: Diminished breath sounds at the bases no crackles rhonchi or wheezes CVS: distant heart sounds, S1 and S2 normal with no audible murmur, irregular rhythm. No extra heart sounds ABDOMEN: obese abdomen, active bowel sounds, no hepatosplenomegaly, no guarding or rigidity. SKIN: chronic venous stasis changes of bilateral lower extremities along with many superficial venous stasis ulcers, draining clear discharge CENTRAL NERVOUS SYSTEM: No focal deficits, tone is normal in all 4 extremities. EXTREMITIES: There is severe 3+ bilateral lower extremity pitting edema. No clubbing, or cyanosis. Peripheral pulses are intact., Multiple ulcerations noted in the lower extremities as noted above - Labs CBC & Chem 7: 01/09/24 08:15 01/10/24 06:36 Labs: Abnormal Lab Results - Last 24 Hours (Table) 01/09/24 01/10/24 Range/Units 19:54 06:36 BUN 58 H (9-20) mg/dL Creatinine 1.77 H (0.66-1.25) mg/dL Glucose 111 H (74-99) mg/dL Urine Protein 1+ H (Negative) Urine Glucose (UA) 3+ H (Negative) Urine Blood Trace H (Negative) Urine Mucus Rare H (None) /hpf Assessment and Plan Assessment: Acute on chronic hypoxemic respiratory failure, secondary to an exacerbation of chronic diastolic congestive heart failure. Chest x-ray showing cardiomegaly, pulmonary vascular congestion, interstitial edema. NT proBNP elevated at 1660. Very severe chronic obstructive pulmonary disease, with an FEV1 22% of predicted, appears stable Obstructive sleep apnea, patient is noncompliant with his noninvasive positive airway pressure machine, states his mask is broken. A new mask has been obt ained for the patient this admission to hopefully increase his compliance Morbid obesity, with a BMI of 48.7 kg/m Acute on chronic kidney disease Hyperkalemia, secondary to above, treated with a combination of 10 units regular insulin, 1 amp D50 W, and one dose of Lokelma Chronic atrial fibrillation, with controlled ventricular response, anticoagulated on Eliquis Chronic lower extremity edema, with multiple venous stasis ulcers History of hypertension History of hyperlipidemia Former tobacco dependence Plan: The patient was seen and evaluated Medications and labs reviewed Utilizing auto CPAP at night and during the day while napping Otherwise utilizing oxygen at 3 L nasal cannula Remains on IV diuretics Remains in a negative balance We will continue to follow I have personally seen and examined the patient, performed the documentation and the assessment and plan as written. Number of minutes spent on the visit: 10.
--- NOTE | 2024-01-10 17:39 | P.PN ---
Subjective patient is seen for follow-up for acute kidney injury. He is currently being diuresed. Overall feels better. serum creatinine decreased to 1.7. 24 hour urine output at 2.3 L. Objective - Vital Signs Vital signs: Vital Signs Temp 98.2 F 01/10/24 12:00 Pulse 61 01/10/24 16:00 Resp 18 01/10/24 16:00 BP 123/80 01/10/24 16:00 Pulse Ox 92 L 01/10/24 16:00 FiO2 21 01/09/24 03:29 Intake & Output 01/09/24 01/10/24 01/10/24 18:59 06:59 18:59 Intake Total 830 494 360 Output Total 0603 476 4372 Balance -620 406 -1040 Weight 96.8 kg Intake: IV 20 Invasive Line 2 20 Oral 830 474 360 Output: Urine 3121 698 1336 Other: Voiding Method Urinal Urinal - Exam patient is awake, comfortable, no acute distress. Examination of the heart S1 and S2 Examination of the lungs bilateral breath sounds are heard Abdomen is soft nontender Examination of lower extremities shows edema 3+ bilateral with chronic skin changes WARDROBE MANAGER exam grossly intact - Labs CBC & Chem 7: 01/09/24 08:15 01/10/24 06:36 Labs: Abnormal Lab Results - Last 24 Hours (Table) 01/09/24 01/10/24 Range/Units 19:54 06:36 BUN 58 H (9-20) mg/dL Creatinine 1.77 H (0.66-1.25) mg/dL Glucose 111 H (74-99) mg/dL Urine Protein 1+ H (Negative) Urine Glucose (UA) 3+ H (Negative) Urine Blood Trace H (Negative) Urine Mucus Rare H (None) /hpf Assessment and Plan Assessment: 1. Acute kidney injury cardiorenal, currently being diuresed. UA shows 1+ protein, trace blood. Ultrasound of the kidneys on 12/15/2023 did not show any evidence of obstructive uropathy. Angiotensin receptor blockers currently on hold. 2. Hyperkalemia associated with acute kidney injury and use of angiotensin receptor blockers. 3. Chronic diastolic CHF with acute exacerbation 4. Volume overload 5. type 2 diabetes maintained on farxiga 6. Chronic A. fib Plan: continue to diurese patient. Continue to hold losartan for now Repeat labs in a.m. Continue with Farxiga Continue Flomax.
[2024-01-11 07:39] LABS: Basophils % (A) 1 %; Eosinophils # (A) 0.2 k/uL (0-0.7); Eosinophils % (A) 3 %; HCT 48.6 % (39.0-53.0); HGB 15.3 gm/dL (13.0-17.5); Lymphocytes # (A) 0.8 k/uL (1.0-4.8); Lymphocytes % (A) 11 %; MCH 27.9 pg (25.0-35.0); MCHC 31.6 g/dL (31.0-37.0); MCV 88.3 fL (80.0-100.0); Mean Platelet Volume 8.3; Monocytes # (A) 0.5 k/uL (0-1.0); Monocytes % (A) 6 %; Neutrophils # (A) 5.9 k/uL (1.3-7.7); Neutrophils % (A) 77 %; Platelet Count 164 k/uL (150-450); RDW 15.9 % (11.5-15.5); WBC 7.6 k/uL (3.8-10.6)
[2024-01-11 07:50] LABS: Anion Gap 7 mmol/L; Blood Urea Nitrogen 57 mg/dL (9-20); Carbon Dioxide 29 mmol/L (22-30); Chloride 99 mmol/L (98-107); Glucose 144 mg/dL (74-99); Potassium 4.4 mmol/L (3.5-5.1); Sodium 135 mmol/L (137-145)
[2024-01-11 07:51] LABS: African American GFR (CKD) 60 (>60 ml/min/1.73 sqM); Calcium 8.7 mg/dL (8.4-10.2); Non-African American GFR(CKD) 52 (>60 ml/min/1.73 sqM)
--- NOTE | 2024-01-11 09:28 | P.PN ---
Subjective Patient is seen in follow-up for acute kidney injury on chronic kidney disease. Renal function improving. On IV Lasix. Good urine output. Edema improving. Denies chest pain or shortness of breath. Vital signs are stable. General: No acute distress. HEENT: Head exam is unremarkable. On nasal cannula. LUNGS: No audible rhonchi or wheezes. HEART: Rate and Rhythm are regular. ABDOMEN: Nontender, obese. EXTREMITITES: 1+ edema. Objective - Vital Signs Vital signs: Vital Signs Temp 98.0 F 01/11/24 04:52 Pulse 96 01/11/24 09:16 Resp 20 01/11/24 04:52 BP 142/97 01/11/24 04:52 Pulse Ox 96 01/11/24 04:52 FiO2 21 01/09/24 03:29 Intake & Output 01/10/24 01/11/24 01/11/24 18:59 06:59 18:59 Intake Total 540 Output Total 1400 1920 Balance -860 -1920 Weight 157.6 kg Intake: Oral 540 Output: Urine 1400 1920 Other: Voiding Method Urinal Urinal - Labs CBC & Chem 7: 01/11/24 06:34 01/11/24 06:34 Labs: Abnormal Lab Results - Last 24 Hours (Table) 01/11/24 01/11/24 Range/Units 06:34 06:34 RDW 15.9 H (11.5-15.5) % Lymphocytes # 0.8 L (1.0-4.8) k/uL Sodium 135 L (137-145) mmol/L BUN 57 H (9-20) mg/dL Creatinine 1.46 H (0.66-1.25) mg/dL Glucose 144 H (74-99) mg/dL Assessment and Plan Plan: Assessment: 1. Acute kidney injury secondary to ATN secondary to cardiorenal syndrome. Renal function improving. Creatinine 1.46 today. 2. Chronic kidney disease stage IIIa with baseline creatinine 1.3-1.5 secondary to nephrosclerosis. 3. Acute on chronic diastolic CHF. 4. Volume overload. Improving with diuresis. Plan: Maintain IV Lasix. Maintain low-salt diet. Add 1500 cc fluid restriction. Check renal ultrasound. Check chest x-ray. Avoid nephrotoxins.
--- NOTE | 2024-01-11 10:50 | XR ---
EXAMINATION TYPE: XR chest 1V portable DATE OF EXAM: 01/11/2024 COMPARISON: 01/07/2024 INDICATION: CHF TECHNIQUE: Single frontal view of the chest is obtained. FINDINGS: The heart size is large. The pulmonary vasculature is normal. Mild streak atelectasis at the right base. IMPRESSION: 1. Cardiomegaly. 2. Streak atelectasis right lung base.
--- NOTE | 2024-01-11 11:08 | P.PN ---
Subjective HISTORY OF PRESENT ILLNESS: This is a 58-year-old male with a past medical history significant for congestive heart failure, atrial fibrillation, hypertension, hyperlipidemia, chronic kidney disease, COPD, and morbid obesity. Patient follows in the office with Dr. Dickerson. We have been asked to see the patient in consultation for congestive heart failure. Patient examined at the bedside in the emergency room. Patient presented to the hospital with a chief complaint of shortness of breath. Patient states he has been feeling short of breath for the past couple days. He also reports having pain in both of his legs. He reports increased lower extremity swelling as well. He denied having any chest pain or pressure. Patient was found to be in acute CHF and was started on IV diuretics. Patient's vital signs are stable. DIAGNOSTICS: - EKG reveals atrial fibrillation with RVR - Chest xray clinical correlation recommended for developing congestive heart failure - Laboratory data: WBC 5.9. Hemoglobin 16.6. Platelet count 115. Sodium 140. Potassium 5.3. BUN 60. Creatinine 1.96. Lactic acid 1.5. Troponin negative x 1. proBNP 1660. - Current home cardiac medications include Eliquis 5 mg twice a day, Lipitor 10 mg daily, Farxiga 10 mg daily, Lasix 40 mg twice a day, losartan 25 mg at night, metoprolol succinate 50 mg daily. - Most recent echocardiogram obtained in November 2023 revealed ejection fraction 60 to 65%, trace to mild MR, trace to mild TR - Lexiscan stress test completed in July 2022 negative for reversible ischemia 01/09/2024 Patient examined this morning at the bedside. Patient is sitting up in the marj r. Patient currently denies chest pain or pressure. He reports improvement in his shortness of breath. He reports he has been urinating quite frequently. Creatinine remained stable today at 1.84. 01/10/2024 Patient examined this morning at the bedside. Patient currently denies chest pain or pressure. He currently denies shortness of breath. He remains on IV diuretics. He continues to have lower extremity edema. Creatinine stable today at 1.77. 01/11/2024 Patient examined this morning at bedside. Patient denies chest pain or pressure. He denies shortness of breath. He continues to have lower extremity edema. He remains on IV diuretics. Creatinine today 1.46. PHYSICAL EXAM: VITAL SIGNS: Reviewed. GENERAL: Well-developed in no acute distress. HEENT: Head is normocephalic. Pupils are equal, round. Sclerae anicteric. Mucous membranes of the mouth are moist. Neck supple. No JVD or thyromegaly LUNGS: Respirations even and unlabored. Lungs diminished bilaterally HEART: Irregular rate and rhythm. S1 and S2 heard. ABDOMEN: Soft. Nondistended. Nontender. EXTREMITIES: Normal range of motion. No clubbing or cyanosis. Peripheral pulses intact. 2-3+ bilateral lower extremity edema noted with bilateral wounds NEUROLOGIC: Awake and alert. Oriented x 3. ASSESSMENT: Shortness of breath Acute on chronic heart failure with preserved EF, 60 to 65% Persistent atrial fibrillation Hyperkalemia Hypertension Hyperlipidemia Chronic kidney disease COPD Morbid obesity: BMI 48.7 Obstructive sleep apnea, noncompliant with CPAP outpatient PLAN: No need to repeat echocardiogram as this was performed in November 2023 Resume home cardiac medications Continue IV Lasix 40 mg every 12 hours as patient continues to have lower extremity edema. Possible transition to oral diuretics tomorrow Daily weights, accurate intake and output, and monitoring of kidney function Continue telemetry monitoring Further recommendations pending patient course Nurse practitioner note has been reviewed by physician. Signing provider agrees with the documented findings, assessment, and plan of care documented by LUBE MAN as a scribe. Objective - Vital Signs Vital signs: Vital Signs Temp 98.0 F 01/11/24 04:52 Pulse 96 01/11/24 09:16 Resp 20 01/11/24 08:20 BP 142/97 01/11/24 04:52 Pulse Ox 96 01/11/24 04:52 FiO2 21 01/09/24 03:29 Intake & Output 01/10/24 01/11/24 01/11/24 18:59 06:59 18:59 Intake Total 540 Output Total 1400 1920 1000 Balance -860 -1920 -1000 Weight 157.6 kg Intake: Oral 540 Output: Urine 1400 1920 1000 Other: Voiding Method Urinal Urinal Urinal - Labs CBC & Chem 7: 01/11/24 06:34 01/11/24 06:34 Labs: Abnormal Lab Results - Last 24 Hours (Table) 01/11/24 01/11/24 Range/Units 06:34 06:34 RDW 15.9 H (11.5-15.5) % Lymphocytes # 0.8 L (1.0-4.8) k/uL Sodium 135 L (137-145) mmol/L BUN 57 H (9-20) mg/dL Creatinine 1.46 H (0.66-1.25) mg/dL Glucose 144 H (74-99) mg/dL
--- NOTE | 2024-01-11 11:22 | P.PN ---
Subjective Progress Note Date: 01/11/24 Patient is a 58-year-old white male with past medical history significant for hypertension, hyperlipidemia, diastolic congestive heart failure, atrial fibrillation anticoagulated on Eliquis, chronic kidney disease, morbid obesity, obstructive sleep apnea, former tobacco smoker, severe COPD. He does follow in the the pulmonary office with Dr. Gregory. He is known to have severe obstructive sleep apnea, is not compliant with his CPAP. States his mask is broken, and is unable to get a new one. He is also known to have severe COPD, with an FEV1 22% of predicted. He is chronically oxygen dependent on 2 L/m nasal cannula home. Of note, patient had a recent hospitalization with similar presentation 12/12/23 through 12/18/23. He was admitted with an exacerbation of diastolic congestive heart failure, he was diuresed and discharged home. He did have a follow-up echocardiogram performed on this previous admission, which estimated left ventricular ejection fraction of 60-65%, moderate concentric LVH, without any significant valvular dysfunction. He states his breathing was back to baseline on discharge. He returns to the emergency department yesterday afternoon complaining of increased lower extremity swelling and lower extremity pain. There is associated shortness of breath. States he's been compliant with his Lasix medications, but has been voiding less. He currently sitting at the edge of the bed, on 3 L/m nasal cannula, in no respiratory distress. Denies any change in his chronic cough, sputum production, fevers, chest pain. Denies sick contacts. He does have significant weeping lower extremity edema. There are multiple venous stasis ulcers. Legs are erythemic and tender. Chest x-ray showing cardiomegaly with interstitial edema. Consistent with CHF exacerbation. NT proBNP was elevated at 1660. CBC unremarkable. No leukocytosis. BMP: Sodium 140, potassium 6.2, chloride 111, serum bicarb 24, BUN 60, creatinine 1.96, glucose 126. It does appear that he sustained an acute kidney injury, this is on top of his baseline chronic kidney disease. Hyperkalemia was treated in [facility] emergency department with a combination of 10 units regular insulin, 1 amp D50 W, and 10 mg of Lokelma. Lactic acid 1.5. LFTs unremarkable. Troponin less than 0.012.EKG showing atrial fibrillation with controlled ventricular response, with nonspecific ST and T wave abnormalities. No hyperacute T waves or QRS widening. Similar to previous EKGs. Afebrile. Vital signs are stable. Consider examined today on 01/09/2024, I saw this patient yesterday on consultation, he had acute on chronic diastolic congestive heart failure, patient has been on diuretics, he also has severe COPD and FEV1 of 22%, in addition he has obstructive sleep apnea pulmonary hypertension cor pulmonale with chronic cellulitis of lower extremities. Today the patient is feeling better, breathing easier, on 3 L nasal cannula, O2 saturation 96% The patient is seen today January 10, 2024 in follow-up on the selective care unit. He is currently resting comfortably in bed. Awake and alert in no acute distress. He is currently on his CPAP as respiratory therapy were able to get him a new facemask that he tolerates and will hopefully increase his compliance. Sodium 137. Potassium 5.0. Bicarb 30. BUN 58. Creatinine 1.77. Glucose 111. He is continued on DuoNeb inhalations, Symbicort. Remains on IV diuretics. Anticoagulated with Eliquis. Currently in a -1 L balance. The patient is seen today January 11, 2024 in follow-up on the selective care unit. He is currently sitting up at the bedside. Awake and alert in no acute distress. Feeling a bit better today compared to yesterday. States he is still not back to his baseline. He is maintained on IV diuretics. Continued on DuoNeb inhalations, Symbicort. Anticoagulated with Eliquis. Currently in a - 2.7 L balance. White count 7.6. Hemoglobin 15.3. Platelets 164. Sodium 135. Potassium 4.4. Bicarb 29. BUN 57. Creatinine 1.46. Glucose 144. Objective - Vital Signs Vital signs: Vital Signs Temp 98.0 F 01/11/24 04:52 Pulse 96 01/11/24 09:16 Resp 20 01/11/24 08:20 BP 142/97 01/11/24 04:52 Pulse Ox 96 01/11/24 04:52 FiO2 21 01/09/24 03:29 Intake & Output 01/10/24 01/11/24 01/11/24 18:59 06:59 18:59 Intake Total 540 Output Total 1400 1920 1000 Balance - Weight 157.6 kg Intake: Oral 540 Output: Urine 1400 1920 1000 Other: Voiding Method Urinal Urinal Urinal - Exam GENERAL EXAM: Reveals an obese, 58-year-old male, sitting up at the bedside, in no distress, alternating with CPAP and currently on on 3 L nasal cannula HEAD: Normocephalic and atraumatic EYES: Normal reaction of pupils, equal size. NOSE: Clear with pink turbinates. THROAT: No erythema or exudates. NECK: No masses, no JVD. CHEST: No chest wall deformity. LUNGS: Diminished breath sounds at the bases no crackles rhonchi or wheezes CVS: Distant heart sounds, S1 and S2 normal with no audible murmur, irregular rhythm. No extra heart sounds ABDOMEN: Obese abdomen, active bowel sounds, no hepatosplenomegaly, no guarding or rigidity. SKIN: Chronic venous stasis changes of bilateral lower extremities along with many superficial venous stasis ulcers, draining clear discharge CENTRAL NERVOUS SYSTEM: No focal deficits, tone is normal in all 4 extremities. EXTREMITIES: There is severe 3+ bilateral lower extremity pitting edema. Multiple ulcerations noted in the lower extremities as noted above - Labs CBC & Chem 7: 01/11/24 06:34 01/11/24 06:34 Labs: Abnormal Lab Results - Last 24 Hours (Table) 01/11/24 01/11/24 Range/Units 06:34 06:34 RDW 15.9 H (11.5-15.5) % Lymphocytes # 0.8 L (1.0-4.8) k/uL Sodium 135 L (137-145) mmol/L BUN 57 H (9-20) mg/dL Creatinine 1.46 H (0.66-1.25) mg/dL Glucose 144 H (74-99) mg/dL Assessment and Plan Assessment: Acute on chronic hypoxemic respiratory failure, secondary to an exacerbation of chronic diastolic congestive heart failure. Chest x-ray showing cardiomegaly, pulmonary vascular congestion, interstitial edema. NT proBNP elevated at 1660. Very severe chronic obstructive pulmonary disease, with an FEV1 22% of predicted, appears stable Obstructive sleep apnea, patient is noncompliant with his noninvasive positive airway pressure machine, states his mask is broken. A new mask has been obtained for the patient this admission to hopefully increase his compliance Morbid obesity, with a BMI of 47.1 kg/m Acute on chronic kidney disease Hyperkalemia, secondary to above, treated, current potassium 4.4 Chronic atrial fibrillation, with controlled ventricular response, anticoagulated on Eliquis Chronic lower extremity edema, with multiple venous stasis ulcers History of hypertension History of hyperlipidemia Former tobacco dependence Plan: The patient was seen and evaluated Medications and labs reviewed Auto CPAP at night and during the day while napping Otherwise oxygen at 2 L nasal cannula Remains on IV diuretics Increase his activity as tolerated We will continue to follow I have personally seen and examined the patient, performed the documentation and the assessment and plan as written. Number of minutes spent on the visit: 10.
--- NOTE | 2024-01-11 14:33 | US ---
EXAMINATION TYPE: US kidneys/renal and bladder DATE OF EXAM: 01/11/2024 Exam done portable COMPARISON: US 2023 CLINICAL INDICATION: Male, 58 years old with history of brenna; EXAM MEASUREMENTS: Right Kidney: 11.0 x 5.1 x 5.3 cm Left Kidney: 12.1 x 5.2 x 5.5 cm Right Kidney: No hydronephrosis or masses seen Left Kidney: No hydronephrosis or masses seen Bladder: wnl Spleen: 18.7cm, enlarged There is no evidence for hydronephrosis at this point in time. No nephrolithiasis is seen. No kye s are identified. The urinary bladder is anechoic. Bilateral ureteral jets are seen. IMPRESSION: 1. No evidence for obstructive uropathy. 2. Spinal megaly.
[2024-01-12 07:55] LABS: African American GFR (CKD) 69 (>60 ml/min/1.73 sqM); Anion Gap 6 mmol/L; Blood Urea Nitrogen 52 mg/dL (9-20); Calcium 8.4 mg/dL (8.4-10.2); Carbon Dioxide 31 mmol/L (22-30); Chloride 98 mmol/L (98-107); Glucose 108 mg/dL (74-99); Non-African American GFR(CKD) 60 (>60 ml/min/1.73 sqM); Sodium 135 mmol/L (137-145)
[2024-01-12 07:56] LABS: Magnesium 1.8 mg/dL (1.6-2.3); Potassium 4.2 mmol/L (3.5-5.1)
--- NOTE | 2024-01-12 10:19 | P.PN ---
Subjective HISTORY OF PRESENT ILLNESS: This is a 58-year-old male with a past medical history significant for congestive heart failure, atrial fibrillation, hypertension, hyperlipidemia, chronic kidney disease, COPD, and morbid obesity. Patient follows in the office with Dr. Dickerson. We have been asked to see the patient in consultation for congestive heart failure. Patient examined at the bedside in the emergency room. Patient presented to the hospital with a chief complaint of shortness of breath. Patient states he has been feeling short of breath for the past couple days. He also reports having pain in both of his legs. He reports increased lower extremity swelling as well. He denied having any chest pain or pressure. Patient was found to be in acute CHF and was started on IV diuretics. Patient's vital signs are stable. DIAGNOSTICS: - EKG reveals atrial fibrillation with RVR - Chest xray clinical correlation recommended for developing congestive heart failure - Laboratory data: WBC 5.9. Hemoglobin 16.6. Platelet count 115. Sodium 140. Potassium 5.3. BUN 60. Creatinine 1.96. Lactic acid 1.5. Troponin negative x 1. proBNP 1660. - Current home cardiac medications include Eliquis 5 mg twice a day, Lipitor 10 mg daily, Farxiga 10 mg daily, Lasix 40 mg twice a day, losartan 25 mg at night, metoprolol succinate 50 mg daily. - Most recent echocardiogram obtained in November 2023 revealed ejection fraction 60 to 65%, trace to mild MR, trace to mild TR - Lexiscan stress test completed in July 2022 negative for reversible ischemia 01/09/2024 Patient examined this morning at the bedside. Patient is sitting up in the marj r. Patient currently denies chest pain or pressure. He reports improvement in his shortness of breath. He reports he has been urinating quite frequently. Creatinine remained stable today at 1.84. 01/10/2024 Patient examined this morning at the bedside. Patient currently denies chest pain or pressure. He currently denies shortness of breath. He remains on IV diuretics. He continues to have lower extremity edema. Creatinine stable today at 1.77. 01/11/2024 Patient examined this morning at bedside. Patient denies chest pain or pressure. He denies shortness of breath. He continues to have lower extremity edema. He remains on IV diuretics. Creatinine today 1.46. 01/12/2024 Patient examined this morning the bedside. Patient currently denies chest pain or pressure. He denies shortness of breath. Vital signs are stable. He remains on IV Lasix 40 mg every 12 hours. PHYSICAL EXAM: VITAL SIGNS: Reviewed. GENERAL: Well-developed in no acute distress. HEENT: Head is normocephalic. Pupils are equal, round. Sclerae anicteric. Mucous membranes of the mouth are moist. Neck supple. No JVD or thyromegaly LUNGS: Respirations even and unlabored. Lungs diminished bilaterally HEART: Irregular rate and rhythm. S1 and S2 heard. ABDOMEN: Soft. Nondistended. Nontender. EXTREMITIES: Normal range of motion. No clubbing or cyanosis. Peripheral pulses intact. 2+ bilateral lower extremity edema noted with bilateral wounds NEUROLOGIC: Awake and alert. Oriented x 3. ASSESSMENT: Shortness of breath Acute on chronic heart failure with preserved EF, 60 to 65% Persistent atrial fibrillation Hyperkalemia Hypertension Hyperlipidemia Chronic kidney disease COPD Morbid obesity: BMI 48.7 Obstructive sleep apnea, noncompliant with CPAP outpatient PLAN: No need to repeat echocardiogram as this was performed in November 2023 Resume home cardiac medications Discontinue IV Lasix. Begin oral Lasix 40 mg twice a day Daily weights, accurate intake and output, and monitoring of kidney function Continue telemetry monitoring Further recommendations pending patient course Nurse practitioner note has been reviewed by physician. Signing provider agrees with the documented findings, assessment, and plan of care documented by [employer] as a scribe. Objective - Vital Signs Vital signs: Vital Signs Temp 98.0 F 01/12/24 08:00 Pulse 94 01/12/24 08:31 Resp 18 01/12/24 08:00 BP 138/81 01/12/24 08:00 Pulse Ox 93 L 01/12/24 08:00 FiO2 21 01/09/24 03:29 Intake & Output 01/11/24 01/12/24 01/12/24 18:59 06:59 18:59 Intake Total 118 Output Total 1750 1260 Balance -1750 -1260 118 Weight 157.1 kg Intake: Oral 118 Output: Urine 1750 1260 Other: Voiding Method Urinal Urinal Urinal - Labs CBC & Chem 7: 01/11/24 06:34 01/12/24 07:18 Labs: Abnormal Lab Results - Last 24 Hours (Table) 01/12/24 Range/Units 07:18 Sodium 135 L (137-145) mmol/L Carbon Dioxide 31 H (22-30) mmol/L BUN 52 H (9-20) mg/dL Creatinine 1.30 H (0.66-1.25) mg/dL Glucose 108 H (74-99) mg/dL
--- NOTE | 2024-01-12 11:36 | P.PN ---
Subjective Patient is seen in follow-up for acute kidney injury on chronic kidney disease. Renal function improving. Changed to oral Lasix this morning. Good urine output. Edema improved. Denies chest pain or shortness of breath. Vital signs are stable. General: No acute distress. HEENT: Head exam is unremarkable. On nasal cannula. LUNGS: No audible rhonchi or wheezes. HEART: Rate and Rhythm are regular. ABDOMEN: Nontender, obese. EXTREMITITES: Trace edema. Lower extremities wrapped. Objective - Vital Signs Vital signs: Vital Signs Temp 98.0 F 01/12/24 08:00 Pulse 94 01/12/24 08:31 Resp 18 01/12/24 08:00 BP 138/81 01/12/24 08:00 Pulse Ox 93 L 01/12/24 08:00 FiO2 21 01/09/24 03:29 Intake & Output 01/11/24 01/12/24 01/12/24 18:59 06:59 18:59 Intake Total 118 Output Total 1750 1260 Balance -1750 -1260 118 Weight 157.1 kg Intake: Oral 118 Output: Urine 1750 1260 Other: Voiding Method Urinal Urinal Urinal - Labs CBC & Chem 7: 01/11/24 06:34 01/12/24 07:18 Labs: Abnormal Lab Results - Last 24 Hours (Table) 01/12/24 Range/Units 07:18 Sodium 135 L (137-145) mmol/L Carbon Dioxide 31 H (22-30) mmol/L BUN 52 H (9-20) mg/dL Creatinine 1.30 H (0.66-1.25) mg/dL Glucose 108 H (74-99) mg/dL Assessment and Plan Plan: Assessment: 1. Acute kidney injury secondary to ATN secondary to cardiorenal syndrome. Renal function improving. Creatinine 1.3 today. No hydronephrosis noted on kidney ultrasound. 2. Chronic kidney disease stage IIIa with baseline creatinine 1.3-1.5 secondary to nephrosclerosis. 3. Acute on chronic diastolic CHF. 4. Volume overload. Improving with diuresis. Plan: Maintain oral Lasix. Maintain low-salt diet. Maintain fluid restriction. Avoid nephrotoxins. Repeat BMP and magnesium level 2 to 3 days postdischarge. Follow-up outpatient in 1 week.
--- NOTE | 2024-01-12 13:04 | P.PN ---
Subjective Progress Note Date: 01/12/24 Patient is a 58-year-old white male with past medical history significant for hypertension, hyperlipidemia, diastolic congestive heart failure, atrial fibrillation anticoagulated on Eliquis, chronic kidney disease, morbid obesity, obstructive sleep apnea, former tobacco smoker, severe COPD. He does follow in the the pulmonary office with Dr. Gregory. He is known to have severe obstructive sleep apnea, is not compliant with his CPAP. States his mask is broken, and is unable to get a new one. He is also known to have severe COPD, with an FEV1 22% of predicted. He is chronically oxygen dependent on 2 L/m nasal cannula home. Of note, patient had a recent hospitalization with similar presentation 12/12/23 through 12/18/23. He was admitted with an exacerbation of diastolic congestive heart failure, he was diuresed and discharged home. He did have a follow-up echocardiogram performed on this previous admission, which estimated left ventricular ejection fraction of 60-65%, moderate concentric LVH, without any significant valvular dysfunction. He states his breathing was back to baseline on discharge. He returns to the emergency department yesterday afternoon complaining of increased lower extremity swelling and lower extremity pain. There is associated shortness of breath. States he's been compliant with his Lasix medications, but has been voiding less. He currently sitting at the edge of the bed, on 3 L/m nasal cannula, in no respiratory distress. Denies any change in his chronic cough, sputum production, fevers, chest pain. Denies sick contacts. He does have significant weeping lower extremity edema. There are multiple venous stasis ulcers. Legs are erythemic and tender. Chest x-ray showing cardiomegaly with interstitial edema. Consistent with CHF exacerbation. NT proBNP was elevated at 1660. CBC unremarkable. No leukocytosis. BMP: Sodium 140, potassium 6.2, chloride 111, serum bicarb 24, BUN 60, creatinine 1.96, glucose 126. It does appear that he sustained an acute kidney injury, this is on top of his baseline chronic kidney disease. Hyperkalemia was treated in [facility] emergency department with a combination of 10 units regular insulin, 1 amp D50 W, and 10 mg of Lokelma. Lactic acid 1.5. LFTs unremarkable. Troponin less than 0.012.EKG showing atrial fibrillation with controlled ventricular response, with nonspecific ST and T wave abnormalities. No hyperacute T waves or QRS widening. Similar to previous EKGs. Afebrile. Vital signs are stable. Consider examined today on 01/09/2024, I saw this patient yesterday on consultation, he had acute on chronic diastolic congestive heart failure, patient has been on diuretics, he also has severe COPD and FEV1 of 22%, in addition he has obstructive sleep apnea pulmonary hypertension cor pulmonale with chronic cellulitis of lower extremities. Today the patient is feeling better, breathing easier, on 3 L nasal cannula, O2 saturation 96% The patient is seen today January 10, 2024 in follow-up on the selective care unit. He is currently resting comfortably in bed. Awake and alert in no acute distress. He is currently on his CPAP as respiratory therapy were able to get him a new facemask that he tolerates and will hopefully increase his compliance. Sodium 137. Potassium 5.0. Bicarb 30. BUN 58. Creatinine 1.77. Glucose 111. He is continued on DuoNeb inhalations, Symbicort. Remains on IV diuretics. Anticoagulated with Eliquis. Currently in a -1 L balance. The patient is seen today January 11, 2024 in follow-up on the selective care unit. He is currently sitting up at the bedside. Awake and alert in no acute distress. Feeling a bit better today compared to yesterday. States he is still not back to his baseline. He is maintained on IV diuretics. Continued on DuoNeb inhalations, Symbicort. Anticoagulated with Eliquis. Currently in a - 2.7 L balance. White count 7.6. Hemoglobin 15.3. Platelets 164. Sodium 135. Potassium 4.4. Bicarb 29. BUN 57. Creatinine 1.46. Glucose 144. The patient is seen today January 12, 2024 in follow-up on the selective care unit. He is currently awake and alert in no acute distress. Sitting up at the bedside. Denies any worsening shortness of breath, cough or congestion. He has been utilizing his CPAP during the evenings and while napping. He is currently maintaining O2 saturations in the 90s on air. He has been afebrile. Hemodynamically stable. Sodium 135. Potassium 4.2. Bicarb 31. BUN 52. Creatinine 1.30. Glucose 108. Transition to oral diuretics. Remains on bronchodilators. Anticoagulated with Eliquis. Making adequate urine. Objective - Vital Signs Vital signs: Vital Signs Temp 98.0 F 01/12/24 08:00 Pulse 65 01/12/24 12:00 Resp 18 01/12/24 12:00 BP 138/81 01/12/24 12:00 Pulse Ox 95 01/12/24 12:00 FiO2 21 01/09/24 03:29 Intake & Output 01/11/24 01/12/24 01/12/24 18:59 06:59 18:59 Intake Total 118 Output Total 1750 1260 Balance -1750 -1260 118 Weight 157.1 kg Intake: Oral 118 Output: Urine 1750 1260 Other: Voiding Method Urinal Urinal Urinal - Exam GENERAL EXAM: Reveals an obese, 58-year-old male, in no distress, alternating with CPAP and currently on room air HEAD: Normocephalic and atraumatic EYES: Normal reaction of pupils, equal size. NOSE: Clear with pink turbinates. THROAT: No erythema or exudates. NECK: No masses, no JVD. CHEST: No chest wall deformity. LUNGS: Diminished breath sounds at the bases no crackles rhonchi or wheezes CVS: Distant heart sounds, S1 and S2 normal with no audible murmur, irregular rhythm. No extra heart sounds ABDOMEN: Obese abdomen, active bowel sounds, no hepatosplenomegaly, no guarding or rigidity. SKIN: Chronic venous stasis changes of bilateral lower extremities along with many superficial venous stasis ulcers, draining clear discharge CENTRAL NERVOUS SYSTEM: No focal deficits, tone is normal in all 4 extremities. EXTREMITIES: There is severe 3+ bilateral lower extremity pitting edema. Multiple ulcerations noted in the lower extremities as noted above - Labs CBC & Chem 7: 01/11/24 06:34 01/12/24 07:18 Labs: Abnormal Lab Results - Last 24 Hours (Table) 01/12/24 Range/Units 07:18 Sodium 135 L (137-145) mmol/L Carbon Dioxide 31 H (22-30) mmol/L BUN 52 H (9-20) mg/dL Creatinine 1.30 H (0.66-1.25) mg/dL Glucose 108 H (74-99) mg/dL Assessment and Plan Assessment: Acute on chronic hypoxemic respiratory failure, secondary to an exacerbation of chronic diastolic congestive heart failure. Chest x-ray showing cardiomegaly, pulmonary vascular congestion, interstitial edema. NT proBNP elevated at 1660. Very severe chronic obstructive pulmonary disease, with an FEV1 22% of predicted, appears stable Obstructive sleep apnea, patient is noncompliant with his noninvasive positive airway pressure machine, states his mask is broken. A new mask has been obtained for the patient this admission to hopefully increase his compliance Morbid obesity, with a BMI of 47.1 kg/m Acute on chronic kidney disease Hyperkalemia, secondary to above, treated, current potassium 4.2 Chronic atrial fibrillation, with controlled ventricular response, anticoagulated on Eliquis Chronic lower extremity edema, with multiple venous stasis ulcers History of hypertension History of hyperlipidemia Former tobacco dependence Plan: The patient was seen and evaluated Medications and labs reviewed Transitioned to oral diuretics Remains on Symbicort, DuoNeb inhalations Increase his activity as tolerated We will continue to follow I have personally seen and examined the patient, performed the documentation and the assessment and plan as written. Number of minutes spent on the visit: 10.
[2024-01-12] MEDS: FUROSEMIDE 40 MG TAB PO SCH (15:49)
[2024-01-13] MEDS: METOPROLOL TARTRATE 50 MG TAB PO STA (00:40)
--- NOTE | 2024-01-13 01:13 | P.PN ---
Subjective Progress Note Date: 01/09/24 Patient is a 58-year-old male with a past medical history of atrial fibrillation on anticoagulation with Eliquis, chronic CHF, hypertension, hyperlipidemia, obstructive sleep apnea on CPAP at home, anxiety depression and prior history of smoking presents to ER with complaints of worsening bilateral lower extremity swelling and overall not feeling well and also shortness of breath. Patient is also having generalized bodyaches and pains and bilateral lower extremity pain and swelling with weeping fluid. Denies any fever or chills. On admission patient was tachycardic and tachypneic with heart rate 103 and respirations 28 blood pressure 158/102 and pulse ox 97% on 3 L oxygen via nasal cannula. Roney trista does use oxygen at home. Chest x-ray showed correlate clinically recommended developing CHF. EKG showed atrial fibrillation with rapid ventricular response. Laboratory data showed WBC 5.9 hemoglobin 16.6 and platelets 115 sodium 140 potassium 6.2 with slight hemolysis, chloride 111 bicarb is 24 BUN 16 creatinine 1.96 and blood sugar 126 proBNP 1660 and albumin 4.1 01/09/2024 Patient is sitting on side of the bed. Awake alert and oriented. Denies any complaints of chest pain or pressure. Breathing status is much improved. Otherwise patient is being IV diuresis with Lasix. Leg swelling is still significant. Patient is urinating well. Afebrile. Wound dressing is being done. Laboratory data showed WBC 8.8 hemoglobin 17.1 platelets 145 sodium 138 potassium 5.1 chloride 105 bicarbonate 26 BUN 57 and creatinine 1.84 and blood sugar 124. Urinalysis is negative for infection. Cardiology, pulmonary and nephrology is on board. Current medications reviewed. Objective - Vital Signs Vital signs: Vital Signs Temp 98.1 F 01/09/24 12:10 Pulse 91 01/09/24 12:10 Resp 18 01/09/24 12:10 BP 124/75 01/09/24 12:10 Pulse Ox 96 01/09/24 12:10 FiO2 21 01/09/24 03:29 Intake & Output 01/08/24 01/09/24 01/09/24 18:59 06:59 18:59 Intake Total 540 712 Output Total 500 600 Balance -500 -60 712 Weight 115.5 kg Intake: Oral 540 712 Output: Urine 500 600 Other: Voiding Method Urinal - Exam PHYSICAL EXAMINATION: Patient is lying in the bed comfortably, no acute distress, awake alert and oriented.. HEENT: Normocephalic. Neck is supple. Pupils reactive. Nostrils clear. Oral cavity is moist. Neck reveals no JVD, carotid bruits, or thyromegaly. CHEST EXAMINATION: Trachea is central. Symmetrical expansion. Left basilar crackles. No wheezing. Nonlabored breathing.. CARDIAC: Normal S1, S2 with no gallops. No murmurs ABDOMEN: Soft. Bowel sounds normal. No organomegaly. No abdominal bruits. Extremities: 3+ pedal edema with varicose veins and weeping serous fluid. No clubbing or cyanosis Neurologically awake, alert, oriented x3 with well-coordinated movements. No focal deficits noted Skin: No rash or skin lesions. Psychiatric: Coperative. Nonsuicidal Musculoskeletal: No joint swelling or deformity. Normal range of motion. - Labs CBC & Chem 7: 01/11/24 06:34 01/12/24 07:18 Labs: Abnormal Lab Results - Last 24 Hours (Table) 01/08/24 01/08/24 01/09/24 Range/Units 10:54 20:55 08:15 RBC (4.30-5.90) m/uL Hct (39.0-53.0) % RDW 16.4 H (11.5-15.5) % Plt Count 144 L (150-450) k/uL Lymphocytes # 0.6 L (1.0-4.8) k/uL BUN 57 H (9-20) mg/dL Creatinine 1.84 H (0.66-1.25) mg/dL Glucose 124 H (74-99) mg/dL POC Glucose (mg/dL) 159 H (70-110) mg/dL 01/09/24 Range/Units 08:15 RBC 5.98 H (4.30-5.90) m/uL Hct 53.1 H (39.0-53.0) % RDW 16.1 H (11.5-15.5) % Plt Count 145 L (150-450) k/uL Lymphocytes # 0.7 L (1.0-4.8) k/uL BUN (9-20) mg/dL Creatinine (0.66-1.25) mg/dL Glucose (74-99) mg/dL POC Glucose (mg/dL) (70-110) mg/dL Assessment and Plan Assessment: Bilateral lower extremity swelling with varicose veins and stasis ulcers. Acute on chronic CHF with preserved ejection fraction and volume overload Persistent atrial fibrillation on anticoagulation with Eliquis Hyperkalemia due to acute kidney injury and patient is also on JOY inhibitor's Acute kidney injury likely cardiorenal Chronic kidney disease stage III with baseline creatinine level 1.1-1.2 Thrombocytopenia Hypertension Hyperlipidemia Obstructive sleep apnea on CPAP at home COPD Prior history of smoking Anxiety/depression DVT prophylaxis patient is already on full anticoagulation Plan: Patient be continued on telemonitoring. Continue with diuresis with Lasix IV 40 mg every 12 hourly and monitor renal function closely. Continue DuoNebs and Symbicort. Patient was started back on home medications including Flomax and finasteride. Continue with metoprolol and Eliquis. Cardiology, pulmonary, vascular surgery and nephrology is on board. Prognosis is guarded. Time with Patient: Greater than 30
--- NOTE | 2024-01-13 01:15 | P.PN ---
Subjective Progress Note Date: 01/10/24 Patient is a 58-year-old male with a past medical history of atrial fibrillation on anticoagulation with Eliquis, chronic CHF, hypertension, hyperlipidemia, obstructive sleep apnea on CPAP at home, anxiety depression and prior history of smoking presents to ER with complaints of worsening bilateral lower extremity swelling and overall not feeling well and also shortness of breath. Patient is also having generalized bodyaches and pains and bilateral lower extremity pain and swelling with weeping fluid. Denies any fever or chills. On admission patient was tachycardic and tachypneic with heart rate 103 and respirations 28 blood pressure 158/102 and pulse ox 97% on 3 L oxygen via nasal cannula. Roney trista does use oxygen at home. Chest x-ray showed correlate clinically recommended developing CHF. EKG showed atrial fibrillation with rapid ventricular response. Laboratory data showed WBC 5.9 hemoglobin 16.6 and platelets 115 sodium 140 potassium 6.2 with slight hemolysis, chloride 111 bicarb is 24 BUN 16 creatinine 1.96 and blood sugar 126 proBNP 1660 and albumin 4.1 01/09/2024 Patient is sitting on side of the bed. Awake alert and oriented. Denies any complaints of chest pain or pressure. Breathing status is much improved. Otherwise patient is being IV diuresis with Lasix. Leg swelling is still significant. Patient is urinating well. Afebrile. Wound dressing is being done. Laboratory data showed WBC 8.8 hemoglobin 17.1 platelets 145 sodium 138 potassium 5.1 chloride 105 bicarbonate 26 BUN 57 and creatinine 1.84 and blood sugar 124. Urinalysis is negative for infection. Cardiology, pulmonary and nephrology is on board. 01/10/2024 Patient is currently resting in the bed. Awake alert and oriented x 3. Patient was using BiPAP as needed. No complaints of chest pain or worsening shortness of breath. Leg swelling is improving slowly. Patient does have 1 L negative balance. Otherwise patient is being continued on IV diuresis with Lasix and also DuoNebs and Symbicort. Laboratory data showed sodium 137 potassium 5.0 chloride 102 bicarb is 30 BUN 58 and creatinine 1.77 and blood sugar is 111. Nephrology, pulmonary and cardiology and ID is on board. Current medications reviewed. Objective - Vital Signs Vital signs: Vital Signs Temp 98.0 F 01/10/24 20:06 Pulse 100 07/12/24 20:33 Resp 18 01/10/24 20:06 BP 131/78 01/10/24 20:06 Pulse Ox 95 01/10/24 20:06 FiO2 21 01/09/24 03:29 Intake & Output 01/10/24 01/10/24 01/11/24 06:59 18:59 06:59 Intake Total 494 540 Output Total 900 1400 500 Balance -406 -860 -500 Weight 96.8 kg Intake: IV 20 Invasive Line 2 20 Oral 474 540 Output: Urine 900 1400 500 Other: Voiding Method Urinal Urinal Urinal - Exam PHYSICAL EXAMINATION: Patient is lying in the bed comfortably, no acute distress, awake alert and oriented.. HEENT: Normocephalic. Neck is supple. Pupils reactive. Nostrils clear. Oral cavity is moist. Neck reveals no JVD, carotid bruits, or thyromegaly. CHEST EXAMINATION: Trachea is central. Symmetrical expansion. Left basilar crackles. No wheezing. Nonlabored breathing.. CARDIAC: Normal S1, S2 with no gallops. No murmurs ABDOMEN: Soft. Bowel sounds normal. No organomegaly. No abdominal bruits. Extremities: 3+ pedal edema with varicose veins and weeping serous fluid. No clubbing or cyanosis Neurologically awake, alert, oriented x3 with well-coordinated movements. No focal deficits noted Skin: No rash or skin lesions. Psychiatric: Coperative. Nonsuicidal Musculoskeletal: No joint swelling or deformity. Normal range of motion. - Labs CBC & Chem 7: 01/11/24 06:34 01/12/24 07:18 Labs: Abnormal Lab Results - Last 24 Hours (Table) 01/10/24 Range/Units 06:36 BUN 58 H (9-20) mg/dL Creatinine 1.77 H (0.66-1.25) mg/dL Glucose 111 H (74-99) mg/dL Assessment and Plan Assessment: Bilateral lower extremity swelling with varicose veins and stasis ulcers. Acute on chronic CHF with preserved ejection fraction and volume overload Persistent atrial fibrillation on anticoagulation with Eliquis Hyperkalemia due to acute kidney injury and patient is also on JOY inhibitor's Acute kidney injury likely cardiorenal Chronic kidney disease stage III with baseline creatinine level 1.1-1.2 Thrombocytopenia Hypertension Hyperlipidemia Obstructive sleep apnea on CPAP at home COPD Prior history of smoking Anxiety/depression DVT prophylaxis patient is already on full anticoagulation Plan: Patient be continued on telemonitoring. Continue with diuresis with Lasix IV 40 mg every 12 hourly and monitor renal function closely. Continue DuoNebs and Symbicort. Patient was started back on home medications including Flomax and finasteride. Continue with metoprolol and Eliquis. Cardiology, pulmonary, vascular surgery and nephrology is on board. Prognosis is guarded. Time with Patient: Greater than 30
--- NOTE | 2024-01-13 01:17 | P.PN ---
Subjective Progress Note Date: 01/11/24 Patient is a 58-year-old male with a past medical history of atrial fibrillation on anticoagulation with Eliquis, chronic CHF, hypertension, hyperlipidemia, obstructive sleep apnea on CPAP at home, anxiety depression and prior history of smoking presents to ER with complaints of worsening bilateral lower extremity swelling and overall not feeling well and also shortness of breath. Patient is also having generalized bodyaches and pains and bilateral lower extremity pain and swelling with weeping fluid. Denies any fever or chills. On admission patient was tachycardic and tachypneic with heart rate 103 and respirations 28 blood pressure 158/102 and pulse ox 97% on 3 L oxygen via nasal cannula. Roney trista does use oxygen at home. Chest x-ray showed correlate clinically recommended developing CHF. EKG showed atrial fibrillation with rapid ventricular response. Laboratory data showed WBC 5.9 hemoglobin 16.6 and platelets 115 sodium 140 potassium 6.2 with slight hemolysis, chloride 111 bicarb is 24 BUN 16 creatinine 1.96 and blood sugar 126 proBNP 1660 and albumin 4.1 01/09/2024 Patient is sitting on side of the bed. Awake alert and oriented. Denies any complaints of chest pain or pressure. Breathing status is much improved. Otherwise patient is being IV diuresis with Lasix. Leg swelling is still significant. Patient is urinating well. Afebrile. Wound dressing is being done. Laboratory data showed WBC 8.8 hemoglobin 17.1 platelets 145 sodium 138 potassium 5.1 chloride 105 bicarbonate 26 BUN 57 and creatinine 1.84 and blood sugar 124. Urinalysis is negative for infection. Cardiology, pulmonary and nephrology is on board. 01/10/2024 Patient is currently resting in the bed. Awake alert and oriented x 3. Patient was using BiPAP as needed. No complaints of chest pain or worsening shortness of breath. Leg swelling is improving slowly. Patient does have 1 L negative balance. Otherwise patient is being continued on IV diuresis with Lasix and also DuoNebs and Symbicort. Laboratory data showed sodium 137 potassium 5.0 chloride 102 bicarb is 30 BUN 58 and creatinine 1.77 and blood sugar is 111. Nephrology, pulmonary and cardiology and ID is on board. 01/11/2024 Patient is sitting on side of the bed. Awake alert and oriented. No complaints of chest pain. Shortness of breath is much improved. No nausea vomiting abdominal pain or diarrhea. Patient is being continued on Lasix 40 mg IV twice daily and patient is improving. Patient does have 2.7 L negative balance. Other laboratory test showed sodium 135 potassium 4.4 chloride 99 bicarb is 29 BUN 57 creatinine 1.46 and blood sugar is 144 and calcium 8.7.. Current medications reviewed. Objective - Vital Signs Vital signs: Vital Signs Temp 98.2 F 01/11/24 20:09 Pulse 98 01/11/24 20:57 Resp 20 01/11/24 20:09 BP 117/78 01/11/24 20:09 Pulse Ox 94 L 01/11/24 20:09 FiO2 21 01/09/24 03:29 Intake & Output 01/11/24 01/11/24 01/12/24 06:59 18:59 06:59 Output Total 1919 1750 560 Balance -1919 -1749 Weight 157.6 kg Output: Urine 1919 1749 560 Other: Voiding Method Urinal Urinal Urinal - Exam PHYSICAL EXAMINATION: Patient is lying in the bed comfortably, no acute distress, awake alert and oriented.. HEENT: Normocephalic. Neck is supple. Pupils reactive. Nostrils clear. Oral cavity is moist. Neck reveals no JVD, carotid bruits, or thyromegaly. CHEST EXAMINATION: Trachea is central. Symmetrical expansion. no crackles. No wheezing. Nonlabored breathing.. CARDIAC: Normal S1, S2 with no gallops. No murmurs ABDOMEN: Soft. Bowel sounds normal. No organomegaly. No abdominal bruits. Extremities: 3+ pedal edema with varicose veins. No clubbing or cyanosis Neurologically awake, alert, oriented x3 with well-coordinated movements. No focal deficits noted Skin: No rash or skin lesions. Psychiatric: Coperative. Nonsuicidal Musculoskeletal: No joint swelling or deformity. Normal range of motion. - Labs CBC & Chem 7: 01/11/24 06:34 01/12/24 07:18 Labs: Abnormal Lab Results - Last 24 Hours (Table) 01/11/24 01/11/24 Range/Units 06:34 06:34 RDW 15.9 H (11.5-15.5) % Lymphocytes # 0.8 L (1.0-4.8) k/uL Sodium 135 L (137-145) mmol/L BUN 57 H (9-20) mg/dL Creatinine 1.46 H (0.66-1.25) mg/dL Glucose 144 H (74-99) mg/dL Assessment and Plan Assessment: Bilateral lower extremity swelling with varicose veins and stasis ulcers. Acute on chronic CHF with preserved ejection fraction and volume overload Persistent atrial fibrillation on anticoagulation with Eliquis Hyperkalemia due to acute kidney injury and patient is also on JOY inhibitor's Acute kidney injury likely cardiorenal Chronic kidney disease stage III with baseline creatinine level 1.1-1.2 Thrombocytopenia Hypertension Hyperlipidemia Obstructive sleep apnea on CPAP at home COPD Prior history of smoking Anxiety/depression DVT prophylaxis patient is already on full anticoagulation Plan: Patient be continued on telemonitoring. Continue with diuresis with Lasix IV 40 mg every 12 hourly and monitor renal function closely. Continue DuoNebs and Symbicort. CPAP as needed. Patient was started back on home medications including Flomax and finasteride. Continue with metoprolol and Eliquis. Cardiology, pulmonary, vascular surgery and nephrology is on board. Prognosis is guarded. Time with Patient: Greater than 30
--- NOTE | 2024-01-13 01:19 | P.PN ---
Subjective Progress Note Date: 01/12/24 Patient is a 58-year-old male with a past medical history of atrial fibrillation on anticoagulation with Eliquis, chronic CHF, hypertension, hyperlipidemia, obstructive sleep apnea on CPAP at home, anxiety depression and prior history of smoking presents to ER with complaints of worsening bilateral lower extremity swelling and overall not feeling well and also shortness of breath. Patient is also having generalized bodyaches and pains and bilateral lower extremity pain and swelling with weeping fluid. Denies any fever or chills. On admission patient was tachycardic and tachypneic with heart rate 103 and respirations 28 blood pressure 158/102 and pulse ox 97% on 3 L oxygen via nasal cannula. Roney trista does use oxygen at home. Chest x-ray showed correlate clinically recommended developing CHF. EKG showed atrial fibrillation with rapid ventricular response. Laboratory data showed WBC 5.9 hemoglobin 16.6 and platelets 115 sodium 140 potassium 6.2 with slight hemolysis, chloride 111 bicarb is 24 BUN 16 creatinine 1.96 and blood sugar 126 proBNP 1660 and albumin 4.1 01/09/2024 Patient is sitting on side of the bed. Awake alert and oriented. Denies any complaints of chest pain or pressure. Breathing status is much improved. Otherwise patient is being IV diuresis with Lasix. Leg swelling is still significant. Patient is urinating well. Afebrile. Wound dressing is being done. Laboratory data showed WBC 8.8 hemoglobin 17.1 platelets 145 sodium 138 potassium 5.1 chloride 105 bicarbonate 26 BUN 57 and creatinine 1.84 and blood sugar 124. Urinalysis is negative for infection. Cardiology, pulmonary and nephrology is on board. 01/10/2024 Patient is currently resting in the bed. Awake alert and oriented x 3. Patient was using BiPAP as needed. No complaints of chest pain or worsening shortness of breath. Leg swelling is improving slowly. Patient does have 1 L negative balance. Otherwise patient is being continued on IV diuresis with Lasix and also DuoNebs and Symbicort. Laboratory data showed sodium 137 potassium 5.0 chloride 102 bicarb is 30 BUN 58 and creatinine 1.77 and blood sugar is 111. Nephrology, pulmonary and cardiology and ID is on board. 01/11/2024 Patient is sitting on side of the bed. Awake alert and oriented. No complaints of chest pain. Shortness of breath is much improved. No nausea vomiting abdominal pain or diarrhea. Patient is being continued on Lasix 40 mg IV twice daily and patient is improving. Patient does have 2.7 L negative balance. Other laboratory test showed sodium 135 potassium 4.4 chloride 99 bicarb is 29 BUN 57 creatinine 1.46 and blood sugar is 144 and calcium 8.7.. 01/12/2024 Patient is sitting on the side of his bed. Awake alert oriented x 3 with no complaints of chest pain or worsening shortness of breath. Patient is using CPAP as needed as per home regimen. No nausea vomiting abdominal pain or diarrhea. Patient is being IV diuresis changed to p.o. Lasix 40 mg twice daily. Patient is on VINNY hose. Patient has been afebrile. No headache or dizziness or lightheadedness. Laboratory test showed sodium 134 potassium 4.2 chloride 98, BUN 52 and creatinine improved to 1.3 and blood sugar 108 and calcium 8.4 and magnesium 1.8. Current medications reviewed. Objective - Vital Signs Vital signs: Vital Signs Temp 97.9 F 01/12/24 20:25 Pulse 84 01/12/24 21:49 Resp 18 01/12/24 21:07 BP 129/80 01/12/24 20:25 Pulse Ox 95 01/12/24 20:25 FiO2 21 01/09/24 03:29 Intake & Output 01/12/24 01/12/24 01/13/24 06:59 18:59 06:59 Intake Total 1196 232 Output Total 1260 2400 550 Balance -1260 -1204 -318 Weight 157.1 kg Intake: IV 10 Invasive Line 2 10 Oral 1196 222 Output: Urine 1260 2400 550 Other: Voiding Method Urinal Urinal Urinal # Voids 1 - Exam PHYSICAL EXAMINATION: Patient is lying in the bed comfortably, no acute distress, awake alert and oriented.. HEENT: Normocephalic. Neck is supple. Pupils reactive. Nostrils clear. Oral cavity is moist. Neck reveals no JVD, carotid bruits, or thyromegaly. CHEST EXAMINATION: Trachea is central. Symmetrical expansion. no crackles. No wheezing. Nonlabored breathing.. CARDIAC: Normal S1, S2 with no gallops. No murmurs ABDOMEN: Soft. Bowel sounds normal. No organomegaly. No abdominal bruits. Extremities: 3+ pedal edema with varicose veins. No clubbing or cyanosis Neurologically awake, alert, oriented x3 with well-coordinated movements. No focal deficits noted Skin: No rash or skin lesions. Psychiatric: Coperative. Nonsuicidal Musculoskeletal: No joint swelling or deformity. Normal range of motion. - Labs CBC & Chem 7: 01/11/24 06:34 01/12/24 07:18 Labs: Abnormal Lab Results - Last 24 Hours (Table) 01/12/24 Range/Units 07:18 Sodium 135 L (137-145) mmol/L Carbon Dioxide 31 H (22-30) mmol/L BUN 52 H (9-20) mg/dL Creatinine 1.30 H (0.66-1.25) mg/dL Glucose 108 H (74-99) mg/dL Assessment and Plan Assessment: Bilateral lower extremity swelling with varicose veins and stasis ulcers. Acute on chronic CHF with preserved ejection fraction and volume overload Persistent atrial fibrillation on anticoagulation with Eliquis Hyperkalemia due to acute kidney injury and patient is also on JOY inhibitor's Acute kidney injury likely cardiorenal Chronic kidney disease stage III with baseline creatinine level 1.1-1.2 Thrombocytopenia Hypertension Hyperlipidemia Obstructive sleep apnea on CPAP at home COPD Prior history of smoking Anxiety/depression DVT prophylaxis patient is already on full anticoagulation Plan: Patient be continued on telemonitoring. Patient was on IV diuresis with Lasix IV 40 mg every 12 hourly. Lasix changed to by mouth. Renal function is improving. Continue DuoNebs and Symbicort. CPAP as needed. Continue with wound care. Patient was started back on home medications including Flomax and finasteride. Continue with metoprolol and Eliquis. Cardiology, pulmonary, vascular surgery and nephrology is on board. Prognosis is guarded. Time with Patient: Greater than 30
--- NOTE | 2024-01-13 12:28 | P.PN ---
Subjective Patient is seen in follow-up for acute kidney injury on chronic kidney disease. Renal function improved. On oral Lasix. Good urine output. Denies chest pain or shortness of breath. Vital signs are stable. General: No acute distress. HEENT: Head exam is unremarkable. On nasal cannula. LUNGS: No audible rhonchi or wheezes. HEART: Rate and Rhythm are regular. ABDOMEN: Nontender, obese. EXTREMITITES: Trace edema. Lower extremities wrapped. Objective - Vital Signs Vital signs: Vital Signs Temp 97.5 F L 01/13/24 08:49 Pulse 88 01/13/24 12:08 Resp 18 01/13/24 08:49 BP 131/81 01/13/24 08:49 Pulse Ox 97 01/13/24 08:49 FiO2 21 01/09/24 03:29 Intake & Output 01/12/24 01/13/24 01/13/24 18:59 06:59 18:59 Intake Total 1196 676 Output Total 2400 775 Balance -1204 -99 Weight 156.8 kg Intake: IV 10 Invasive Line 2 10 Oral 1196 666 Output: Urine 2400 775 Other: Voiding Method Urinal Urinal # Voids 1 - Labs CBC & Chem 7: 01/11/24 06:34 01/12/24 07:18 Assessment and Plan Plan: Assessment: 1. Acute kidney injury secondary to ATN secondary to cardiorenal syndrome. Renal function improving. Creatinine 1.3 yesterday. No hydronephrosis noted on kidney ultrasound. 2. Chronic kidney disease stage IIIa with baseline creatinine 1.3-1.5 secondary to nephrosclerosis. 3. Acute on chronic diastolic CHF. 4. Volume overload. Improving with diuresis. Plan: Maintain oral Lasix. Maintain low-salt diet. Maintain fluid restriction. Avoid nephrotoxins. Repeat BMP and magnesium level 2 to 3 days postdischarge. Follow-up outpatient in 1 week.
--- NOTE | 2024-01-13 12:41 | P.PN ---
Subjective Progress Note Date: 01/13/24 Principal diagnosis: Acute kidney injury. Patient is a 58-year-old white male with past medical history significant for hypertension, hyperlipidemia, diastolic congestive heart failure, atrial fibrillation anticoagulated on Eliquis, chronic kidney disease, morbid obesity, obstructive sleep apnea, former tobacco smoker, severe COPD. He does follow in the the pulmonary office with Dr. Gregory. He is known to have severe obstructive sleep apnea, is not compliant with his CPAP. States his mask is broken, and is unable to get a new one. He is also known to have severe COPD, w ith an FEV1 22% of predicted. He is chronically oxygen dependent on 2 L/m nasal cannula home. Of note, patient had a recent hospitalization with similar presentation 12/12/23 through 12/18/23. He was admitted with an exacerbation of diastolic congestive heart failure, he was diuresed and discharged home. He did have a follow-up echocardiogram performed on this previous admission, which estimated left ventricular ejection fraction of 60-65%, moderate concentric LVH, without any significant valvular dysfunction. He states his breathing was back to baseline on discharge. He returns to the emergency department yesterday afternoon complaining of increased lower extremity swelling and lower extremity pain. There is associated shortness of breath. States he's been compliant with his Lasix medications, but has been voiding less. He currently sitting at the edge of the bed, on 3 L/m nasal cannula, in no respiratory distress. Denies any change in his chronic cough, sputum production, fevers, chest pain. Denies sick contacts. He does have significant weeping lower extremity edema. There are multiple venous stasis ulcers. Legs are erythemic and tender. Chest x-ray showing cardiomegaly with interstitial edema. Consistent with CHF exacerbation. NT proBNP was elevated at 1660. CBC unremarkable. No leukocytosis. BMP: Sodium 140, potassium 6.2, chloride 111, serum bicarb 24, BUN 60, creatinine 1.96, glucose 126. It does appear that he sustained an acute kidney injury, this is on top of his baseline chronic kidney disease. Hyperkalemia was treated in the emergency department with a combination of 10 units regular insulin, 1 amp D50 W, and 10 mg of Lokelma. Lactic acid 1.5. LFTs unremarkable. Troponin less than 0.012.EKG showing atrial fibrillation with controlled ventricular response, with nonspecific ST and T wave abnormalities. No hyperacute T waves or QRS widening. Similar to previous EKGs. Afebrile. Vital signs are stable. Consider examined today on 01/09/2024, I saw this patient yesterday on consultation, he had acute on chronic diastolic congestive heart failure, patient has been on diuretics, he also has severe COPD and FEV1 of 22%, in addition he has obstructive sleep apnea pulmonary hypertension cor pulmonale with chronic cellulitis of lower extremities. Today the patient is feeling better, breathing easier, on 3 L nasal cannula, O2 saturation 96% The patient is seen today January 10, 2024 in follow-up on the selective care unit. He is currently resting comfortably in bed. Awake and alert in no acute distress. He is currently on his CPAP as respiratory therapy were able to get him a new facemask that he tolerates and will hopefully increase his compliance. Sodium 137. Potassium 5.0. Bicarb 30. BUN 58. Creatinine 1.77. Glucose 111. He is continued on DuoNeb inhalations, Symbicort. Remains on IV diuretics. Anticoagulated with Eliquis. Currently in a -1 L balance. The patient is seen today January 11, 2024 in follow-up on the selective care unit. He is currently sitting up at the bedside. Awake and alert in no acute distress. Feeling a bit better today compared to yesterday. States he is still not back to his baseline. He is maintained on IV diuretics. Continued on DuoNeb inhalations, Symbicort. Anticoagulated with Eliquis. Currently in a - 2.7 L balance. White count 7.6. Hemoglobin 15.3. Platelets 164. Sodium 135. Potassium 4.4. Bicarb 29. BUN 57. Creatinine 1.46. Glucose 144. The patient is seen today January 12, 2024 in follow-up on the selective care unit. He is currently awake and alert in no acute distress. Sitting up at the bedside. Denies any worsening shortness of breath, cough or congestion. He has been utilizing his CPAP during the evenings and while napping. He is currently maintaining O2 saturations in the 90s on air. He has been afebrile. Hemodynamically stable. Sodium 135. Potassium 4.2. Bicarb 31. BUN 52. Creatinine 1.30. Glucose 108. Transition to oral diuretics. Remains on bronchodilators. Anticoagulated with Eliquis. Making adequate urine. Progress note dated January 13, 2024. The patient is seen today in room 382. The patient is sitting at the side of the bed. The patient is currently on 2 L of oxygen by nasal cannula. The patient is not receiving any IV fluids. He states that his breathing is stable. He denies any chest pain or chest discomfort. He appears in no acute distress. No new laboratory data today. From yesterday, sodium was 135, potassium 4.3, chloride 98, CO2 31, BUN 52, and creatinine 1.30. Glucose is 108. Objective - Vital Signs Vital signs: Vital Signs Temp 97.5 F L 01/13/24 08:49 Pulse 88 01/13/24 12:08 Resp 18 01/13/24 08:49 BP 131/81 01/13/24 08:49 Pulse Ox 97 01/13/24 08:49 FiO2 21 01/09/24 03:29 Intake & Output 01/12/24 01/13/24 01/13/24 18:59 06:59 18:59 Intake Total 1196 676 240 Output Total 2400 775 1100 Balance -1204 -99 -860 Weight 156.8 kg Intake: IV 10 Invasive Line 2 10 Oral 1196 666 240 Output: Urine 2400 775 1100 Other: Voiding Method Urinal Urinal # Voids 1 - Exam No acute distress, oriented 3. The patient is currently on 2 L of oxygen. No respiratory distress. HEENT examination is grossly unremarkable. Mucous membranes are moist. No oral lesions. Neck supple. Full range of motion. No adenopathy thyromegaly or neck vein distention. Cardiovascular examination reveals an irregular rhythm and rate. S1-S2 normal. No S3 or S4. No discernible murmur noted. Heart sounds are distant. Lungs reveal diminished bilateral breath sounds. No wheezes. No rhonchi. No crackles. Breath sounds are equal bilaterally. Abdomen soft bowel sounds are heard. No masses or tenderness. Extremities are significant for 2+ edema. There is chronic venous stasis changes. Chronic hyperpigmentation as well. Skin is without rash or lesion. Neurologic examination is brief but nonfocal. - Labs CBC & Chem 7: 01/11/24 06:34 01/12/24 07:18 Assessment and Plan Assessment: Acute on chronic hypoxemic respiratory failure, secondary to an exacerbation of chronic diastolic congestive heart failure. Very severe chronic obstructive pulmonary disease, with an FEV1 22% of predicted, appears stable. Obstructive sleep apnea, patient is noncompliant with his noninvasive positive airway pressure machine, states his mask is broken. A new mask has been obtained for the patient this admission to hopefully increase his compliance. Morbid obesity, with a BMI of 47.1 kg/m. Acute on chronic kidney disease. Hyperkalemia, resolved. Chronic atrial fibrillation, with controlled ventricular response. Chronic lower extremity edema, with multiple venous stasis ulcers. History of hypertension. History of hyperlipidemia. Former tobacco dependence. Plan: Plan dated January 13, 2024. The patient is seen today in room 382. He is sitting at the side of the bed. He is on 2 L of oxygen. He denies any respiratory distress or difficulty. Labs, x-rays, and medications are reviewed. He continues on DuoNebs, and Symbicort. His COPD which is quite severe, seems not to be the main issue at this time. The patient has significant lower extremity edema, with chronic venous stasis changes, and chronic hyperpigmentation. We will continue to follow make recommendations along the way. Time with Patient: Less than 30
[2024-01-14 04:12] VITALS: TEMP 97.4
[2024-01-14 08:06] VITALS: RESP 16
[2024-01-14 09:10] LABS: Basophils # (A) 0.1 k/uL (0-0.2); Basophils % (A) 1 %; Eosinophils # (A) 0.2 k/uL (0-0.7); Eosinophils % (A) 4 %; HCT 50.6 % (39.0-53.0); HGB 16.3 gm/dL (13.0-17.5); Lymphocytes # (A) 0.8 k/uL (1.0-4.8); Lymphocytes % (A) 13 %; MCH 28.6 pg (25.0-35.0); MCHC 32.2 g/dL (31.0-37.0); MCV 88.6 fL (80.0-100.0); Mean Platelet Volume 9.5; Monocytes # (A) 0.5 k/uL (0-1.0); Monocytes % (A) 8 %; Neutrophils # (A) 4.2 k/uL (1.3-7.7); Neutrophils % (A) 72 %; Platelet Count 157 k/uL (150-450); RBC 5.71 m/uL (4.30-5.90); RDW 15.8 % (11.5-15.5); WBC 5.8 k/uL (3.8-10.6)
[2024-01-14 09:16] LABS: African American GFR (CKD) 78 (>60 ml/min/1.73 sqM); Anion Gap 6 mmol/L; Blood Urea Nitrogen 46 mg/dL (9-20); Calcium 8.9 mg/dL (8.4-10.2); Carbon Dioxide 32 mmol/L (22-30); Chloride 98 mmol/L (98-107); Glucose 108 mg/dL (74-99); Non-African American GFR(CKD) 67 (>60 ml/min/1.73 sqM); Sodium 136 mmol/L (137-145)
[2024-01-14 09:19] LABS: Potassium 4.4 mmol/L (3.5-5.1)
[2024-01-14 10:25] VITALS: BMI 46.9
[2024-01-14 12:13] VITALS: BP 137/85
--- NOTE | 2024-01-14 13:07 | P.PN ---
Subjective Patient is seen in follow-up for acute kidney injury on chronic kidney disease. Renal function improved. On oral Lasix. Good urine output. Denies chest pain or shortness of breath. Vital signs are stable. General: No acute distress. HEENT: Head exam is unremarkable. On nasal cannula. LUNGS: No audible rhonchi or wheezes. HEART: Rate and Rhythm are regular. ABDOMEN: Nontender, obese. EXTREMITITES: Trace edema. Lower extremities wrapped. Objective - Vital Signs Vital signs: Vital Signs Temp 97.4 F L 01/14/24 04:00 Pulse 93 01/14/24 12:13 Resp 16 01/14/24 12:13 BP 137/85 01/14/24 12:13 Pulse Ox 95 01/14/24 12:13 FiO2 21 01/09/24 03:29 Intake & Output 01/13/24 01/14/24 01/14/24 18:59 06:59 18:59 Intake Total 240 247 786 Output Total 1500 750 850 Balance -1260 -503 -64 Weight 156.9 kg 156.9 kg Intake: IV 10 0.9 10 Oral 240 237 786 Output: Urine 1500 750 850 Other: Voiding Method Urinal # Voids 3 0 - Labs CBC & Chem 7: 01/14/24 07:45 01/14/24 07:45 Labs: Abnormal Lab Results - Last 24 Hours (Table) 01/14/24 01/14/24 Range/Units 07:45 07:45 RDW 15.8 H (11.5-15.5) % Lymphocytes # 0.8 L (1.0-4.8) k/uL Sodium 136 L (137-145) mmol/L Carbon Dioxide 32 H (22-30) mmol/L BUN 46 H (9-20) mg/dL Glucose 108 H (74-99) mg/dL Assessment and Plan Plan: Assessment: 1. Acute kidney injury secondary to ATN secondary to cardiorenal syndrome. Renal function improving. Creatinine 1.17 today. No hydronephrosis noted on kidney ultrasound. 2. Chronic kidney disease stage IIIa with baseline creatinine 1.3-1.5 secondary to nephrosclerosis. 3. Acute on chronic diastolic CHF. 4. Volume overload. Improving with diuresis. Plan: Maintain oral Lasix. Maintain low-salt diet. Maintain fluid restriction. Avoid nephrotoxins. Repeat BMP and magnesium level 2 to 3 days postdischarge. Follow-up outpatient in 1 week.
--- NOTE | 2024-01-14 14:29 | P.PN ---
Subjective Progress Note Date: 01/14/24 Patient is a 58-year-old white male with past medical history significant for hypertension, hyperlipidemia, diastolic congestive heart failure, atrial fibrillation anticoagulated on Eliquis, chronic kidney disease, morbid obesity, obstructive sleep apnea, former tobacco smoker, severe COPD. He does follow in the the pulmonary office with Dr. Gregory. He is known to have severe obstructive sleep apnea, is not compliant with his CPAP. States his mask is broken, and is unable to get a new one. He is also known to have severe COPD, with an FEV1 22% of predicted. He is chronically oxygen dependent on 2 L/m nasal cannula home. Of note, patient had a recent hospitalization with similar presentation 12/12/23 through 12/18/23. He was admitted with an exacerbation of diastolic congestive heart failure, he was diuresed and discharged home. He did have a follow-up echocardiogram performed on this previous admission, which estimated left ventricular ejection fraction of 60-65%, moderate concentric LVH, without any significant valvular dysfunction. He states his breathing was back to baseline on discharge. He returns to the emergency department yesterday afternoon complaining of increased lower extremity swelling and lower extremity pain. There is associated shortness of breath. States he's been compliant with his Lasix medications, but has been voiding less. He currently sitting at the edge of the bed, on 3 L/m nasal cannula, in no respiratory distress. Denies any change in his chronic cough, sputum production, fevers, chest pain. Denies sick contacts. He does have significant weeping lower extremity edema. There are multiple venous stasis ulcers. Legs are erythemic and tender. Chest x-ray showing cardiomegaly with interstitial edema. Consistent with CHF exacerbation. NT proBNP was elevated at 1660. CBC unremarkable. No leukocytosis. BMP: Sodium 140, potassium 6.2, chloride 111, serum bicarb 24, BUN 60, creatinine 1.96, glucose 126. It does appear that he sustained an acute kidney injury, this is on top of his baseline chronic kidney disease. Hyperkalemia was treated in [facility] emergency department with a combination of 10 units regular insulin, 1 amp D50 W, and 10 mg of Lokelma. Lactic acid 1.5. LFTs unremarkable. Troponin less than 0.012.EKG showing atrial fibrillation with controlled ventricular response, with nonspecific ST and T wave abnormalities. No hyperacute T waves or QRS widening. Similar to previous EKGs. Afebrile. Vital signs are stable. Consider examined today on 01/09/2024, I saw this patient yesterday on consultation, he had acute on chronic diastolic congestive heart failure, patient has been on diuretics, he also has severe COPD and FEV1 of 22%, in addition he has obstructive sleep apnea pulmonary hypertension cor pulmonale with chronic cellulitis of lower extremities. Today the patient is feeling better, breathing easier, on 3 L nasal cannula, O2 saturation 96% The patient is seen today January 10, 2024 in follow-up on the selective care unit. He is currently resting comfortably in bed. Awake and alert in no acute distress. He is currently on his CPAP as respiratory therapy were able to get him a new facemask that he tolerates and will hopefully increase his compliance. Sodium 137. Potassium 5.0. Bicarb 30. BUN 58. Creatinine 1.77. Glucose 111. He is continued on DuoNeb inhalations, Symbicort. Remains on IV diuretics. Anticoagulated with Eliquis. Currently in a -1 L balance. The patient is seen today January 11, 2024 in follow-up on the selective care unit. He is currently sitting up at the bedside. Awake and alert in no acute distress. Feeling a bit better today compared to yesterday. States he is still not back to his baseline. He is maintained on IV diuretics. Continued on DuoNeb inhalations, Symbicort. Anticoagulated with Eliquis. Currently in a - 2.7 L balance. White count 7.6. Hemoglobin 15.3. Platelets 164. Sodium 135. Potassium 4.4. Bicarb 29. BUN 57. Creatinine 1.46. Glucose 144. The patient is seen today January 12, 2024 in follow-up on the selective care unit. He is currently awake and alert in no acute distress. Sitting up at the bedside. Denies any worsening shortness of breath, cough or congestion. He has been utilizing his CPAP during the evenings and while napping. He is currently maintaining O2 saturations in the 90s on air. He has been afebrile. Hemodynamically stable. Sodium 135. Potassium 4.2. Bicarb 31. BUN 52. Creatinine 1.30. Glucose 108. Transition to oral diuretics. Remains on bronchodilators. Anticoagulated with Eliquis. Making adequate urine. The patient is seen today January 14, 2024 in follow-up on the selective care unit. He is resting comfortably in bed. Awake and alert in no acute distress. Maintaining good O2 saturations in the 90s on 2 L/min per nasal cannula. No IV fluids. Gonzalez wraps to the lower extremities. White count 5.8. Hemoglobin 16.3. Platelets 157. Sodium 136. Potassium 4.4. Bicarb 32. BUN 46. Creatinine 1.17. Glucose 108. Continue on DuoNeb ventilations, Symbicort. Remains on oral diuretics. Anticoagulated with Eliquis. Objective - Vital Signs Vital signs: Vital Signs Temp 97.4 F L 01/14/24 04:00 Pulse 93 01/14/24 12:13 Resp 16 01/14/24 12:13 BP 137/85 01/14/24 12:13 Pulse Ox 95 01/14/24 12:13 FiO2 21 01/09/24 03:29 Intake & Output 01/13/24 01/14/24 01/14/24 18:59 06:59 18:59 Intake Total 240 247 786 Output Total 1500 750 850 Balance -1260 -503 -64 Weight 156.9 kg 156.9 kg Intake: IV 10 0.9 10 Oral 240 237 786 Output: Urine 1500 750 850 Other: Voiding Method Urinal # Voids 3 0 - Exam GENERAL EXAM: Reveals an obese, 58-year-old male, sitting in bed, in no distress, alternating between CPAP and 2 liters nasal cannula HEAD: Normocephalic and atraumatic EYES: Normal reaction of pupils, equal size. NOSE: Clear with pink turbinates. THROAT: No erythema or exudates. NECK: No masses, no JVD. CHEST: No chest wall deformity. LUNGS: Diminished breath sounds at the bases no crackles rhonchi or wheezes CVS: Distant heart sounds, S1 and S2 normal with no audible murmur, irregular rhythm. No extra heart sounds ABDOMEN: Obese abdomen, active bowel sounds, no hepatosplenomegaly, no guarding or rigidity. SKIN: Chronic venous stasis changes of bilateral lower extremities along with many superficial venous stasis ulcers, draining clear discharge CENTRAL NERVOUS SYSTEM: No focal deficits, tone is normal in all 4 extremities. EXTREMITIES: There is severe 3+ bilateral lower extremity pitting edema. Multiple ulcerations noted in the lower extremities as noted above - Labs CBC & Chem 7: 01/14/24 07:45 01/14/24 07:45 Labs: Abnormal Lab Results - Last 24 Hours (Table) 01/14/24 01/14/24 Range/Units 07:45 07:45 RDW 15.8 H (11.5-15.5) % Lymphocytes # 0.8 L (1.0-4.8) k/uL Sodium 136 L (137-145) mmol/L Carbon Dioxide 32 H (22-30) mmol/L BUN 46 H (9-20) mg/dL Glucose 108 H (74-99) mg/dL Assessment and Plan Assessment: Acute on chronic hypoxemic respiratory failure, secondary to an exacerbation of chronic diastolic congestive heart failure. Chest x-ray showing cardiomegaly, pulmonary vascular congestion, interstitial edema. NT proBNP elevated at 1660. Very severe chronic obstructive pulmonary disease, with an FEV1 22% of predic eugenia, appears stable Obstructive sleep apnea, patient is noncompliant with his noninvasive positive airway pressure machine, states his mask is broken. A new mask has been obtained for the patient this admission to hopefully increase his compliance Morbid obesity, with a BMI of 47.1 kg/m Acute on chronic kidney disease Hyperkalemia, secondary to above, treated, current potassium 4.2 Chronic atrial fibrillation, with controlled ventricular response, anticoagulated on Eliquis Chronic lower extremity edema, with multiple venous stasis ulcers History of hypertension History of hyperlipidemia Former tobacco dependence Plan: The patient was seen and evaluated Medications and labs reviewed Remains on Symbicort, DuoNeb inhalations Increase his activity as tolerated Cleared for discharge from the pulmonary standpoint I have personally seen and examined the patient, performed the documentation and the assessment and plan as written. Number of minutes spent on the visit: 10.
[2024-01-14 15:24] VITALS: PULSE 96
== END 2024-01-14 17:32 | disposition home health service (06) | DRG 194 ==
LOC: EC 14:21 → 3SCARD 16:30
PROVIDERS: ADMIT Hospitalist; ATTEND Hospitalist
DX: I13.0 Hypertensive heart and chronic kidney disease with heart failure and stage 1 through stage 4 chronic kidney disease, or unspecified chronic kidney disease (principal); I27.29 Other secondary pulmonary hypertension; I27.81 Cor pulmonale (chronic); I48.19 Other persistent atrial fibrillation; I50.33 Acute on chronic diastolic (congestive) heart failure; I87.333 Chronic venous hypertension (idiopathic) with ulcer and inflammation of bilateral lower extremity; I87.8 Other specified disorders of veins; J44.1 Chronic obstructive pulmonary disease with (acute) exacerbation; J96.21 Acute and chronic respiratory failure with hypoxia; L03.115 Cellulitis of right lower limb; L03.116 Cellulitis of left lower limb; L97.212 Non-pressure chronic ulcer of right calf with fat layer exposed; L97.822 Non-pressure chronic ulcer of other part of left lower leg with fat layer exposed; N17.0 Acute kidney failure with tubular necrosis; D69.6 Thrombocytopenia, unspecified; Z99.81 Dependence on supplemental oxygen; F32.A Depression, unspecified; Z68.42 Body mass index [BMI] 45.0-49.9, adult; E66.01 Morbid (severe) obesity due to excess calories; E11.22 Type 2 diabetes mellitus with diabetic chronic kidney disease; E11.40 Type 2 diabetes mellitus with diabetic neuropathy, unspecified; N18.31 Chronic kidney disease, stage 3a; F41.9 Anxiety disorder, unspecified; G47.33 Obstructive sleep apnea (adult) (pediatric); L30.9 Dermatitis, unspecified; E87.5 Hyperkalemia; E78.5 Hyperlipidemia, unspecified; Z79.01 Long term (current) use of anticoagulants; Z79.51 Long term (current) use of inhaled steroids; Z79.84 Long term (current) use of oral hypoglycemic drugs; Z79.899 Other long term (current) drug therapy; Z87.891 Personal history of nicotine dependence; Z91.199 Patient's noncompliance with other medical treatment and regimen due to unspecified reason; Z28.21 Immunization not carried out because of patient refusal; Z71.3 Dietary counseling and surveillance
CPT/HCPCS: 36415; 71045; 76770; 80048; 80053; 81001; 83605; 83735; 83880; 84100; 84132; 84484; 85025; 85610; 85730; 93005; 93923; 94640; 94660; 94760; 96374; 96375; 96376; 99285

== ENCOUNTER 2024-04-04 18:35 | Inpatient (IN) | payer MEDICARE, OTHER ==
--- NOTE | 2024-04-04 18:59 | ED ---
SOB HPI - General Chief Complaint: Shortness of Breath Stated Complaint: TONEY Time Seen by Provider: 04/04/24 18:43 Source: patient, EMS, RN notes reviewed, old records reviewed Mode of arrival: EMS Limitations: no limitations - History of Present Illness Initial Comments: This is a 58-year-old male to the ER for evaluation patient coming in today for evaluation of severe debility weakness inability to get up move around shortness of breath especially with exertion feels like he needs BiPAP, symptoms are progressively worsening with increased shaking increased tremors the main complaint is tremors MD Complaint: shortness of breath, cough -: days(s) Radiation: back Severity: moderate Severity scale (1-10): 4 Consistency: constant Improves With: nothing Worsens With: nothing Known History Of: COPD, congestive heart failure Context: recent URI Treatments Prior to Arrival: none - Related Data Home Medications Medication Instructions Recorded Confirmed Losartan [Cozaar] 25 mg PO HS 07/09/22 04/04/24 hydrOXYzine pamoate [Vistaril] 50 mg PO HS PRN 07/09/22 04/04/24 Atorvastatin [Lipitor] 10 mg PO DAILY 08/01/22 04/04/24 Apixaban [Eliquis] 5 mg PO BID 12/12/23 04/04/24 Finasteride [Proscar] 5 mg PO DAILY 12/12/23 04/04/24 QUEtiapine [SEROquel] 50 mg PO HS 12/12/23 04/04/24 Sertraline [Zoloft] 50 mg PO DAILY 12/12/23 04/04/24 Acetaminophen-Codeine 300-30mg 1 tab PO Q6H PRN 04/04/24 04/04/24 [Tylenol w/codeine #3] Albuterol Sulfate [Ventolin HFA] 1 puff INHALATION RT-BID 04/04/24 04/04/24 Cephalexin [Keflex] 500 mg PO Q12HR 04/04/24 04/04/24 Furosemide [Lasix] 40 mg PO DAILY 04/04/24 04/04/24 Pregabalin [Lyrica] 150 mg PO Q8H PRN 04/04/24 04/04/24 Spironolactone [Aldactone] 25 mg PO DAILY 04/04/24 04/04/24 dilTIAZem HCL [dilTIAZem HCL 24Hr 120 mg PO DAILY 04/04/24 04/04/24 ER (CD)] Previous Rx's Medication Instructions Recorded Dapagliflozin Propanediol [Farxiga] 10 mg PO DAILY 30 Days #30 tab 09/10/22 Famotidine [Pepcid] 20 mg PO BID #60 tab 09/10/22 Metoprolol Succinate (ER) [Toprol 100 mg PO DAILY 30 Days #30 tab 09/10/22 XL] busPIRone HCl [Buspar] 5 mg PO TID 30 Days #90 tab 09/10/22 traMADol HCl [Ultram] 50 mg PO Q6H PRN #4 tab 01/11/23 Allergies Allergy/AdvReac Type Severity Reaction Status Date / Time No Known Allergies Allergy Verified 04/04/24 20:03 Review of Systems ROS Statement: Those systems with pertinent positive or pertinent negative responses have been documented in the HPI. ROS Other: All systems not noted in ROS Statement are negative. 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 History of Any Multi-Drug Resistant Organisms: MRSA Date of last positivie culture/infection: 11/15/22 MDRO Source:: Left Leg Past Surgical History: Hernia Repair, Joint Replacement, Orthopedic Surgery Additional Past Surgical History / Comment(s): RT ARMAND, rt foot SX, Past Anesthesia/Blood Transfusion Reactions: No Reported Reaction Past Psychological History: Depression Smoking Status: Former smoker Past Alcohol Use History: None Reported Past Drug Use History: None Reported - Past Family History Mother Family Medical History: No Reported History General Exam Limitations: no limitations General appearance: alert, in no apparent distress, anxious, in distress, obese Head exam: Present: atraumatic, normocephalic, normal inspection Eye exam: Present: normal appearance, PERRL, EOMI. Absent: scleral icterus, conjunctival injection, periorbital swelling ENT exam: Present: normal exam, mucous membranes moist Neck exam: Present: normal inspection. Absent: tenderness, meningismus, lymphadenopathy Respiratory exam: Present: normal lung sounds bilaterally. Absent: respiratory distress, wheezes, rales, rhonchi, stridor Cardiovascular Exam: Present: regular rate, normal rhythm, normal heart sounds. Absent: systolic murmur, diastolic murmur, rubs, gallop, clicks GI/Abdominal exam: Present: soft, normal bowel sounds. Absent: distended, tenderness, guarding, rebound, rigid Extremities exam: Present: normal inspection, full ROM, normal capillary refill. Absent: tenderness, pedal edema, joint swelling, calf tenderness Back exam: Present: normal inspection Neurological exam: Present: alert, oriented X3, CN II-XII intact Psychiatric exam: Present: normal affect, normal mood Skin exam: Present: warm, dry, intact, normal color. Absent: rash Course Vital Signs 04/04/24 04/04/24 04/04/24 18:37 18:44 18:45 Temperature 97.9 F Pulse Rate 77 Respiratory 18 Rate Blood Pressure 93/66 O2 Sat by Pulse 90 L Oximetry Fraction of 100 50 Inspired Oxygen (FIO2) 04/04/24 04/04/24 04/04/24 19:50 20:15 21:00 Temperature Pulse Rate 96 95 85 Respiratory 20 Rate Blood Pressure 135/81 O2 Sat by Pulse 95 Oximetry Fraction of Inspired Oxygen (FIO2) 04/04/24 04/04/24 04/04/24 21:20 21:22 21:50 Temperature Pulse Rate 98 95 Respiratory Rate Blood Pressure O2 Sat by Pulse Oximetry Fraction of 50 Inspired Oxygen (FIO2) 04/04/24 04/04/24 04/04/24 22:00 22:15 23:12 Temperature Pulse Rate 90 98 Respiratory 20 20 Rate Blood Pressure 107/74 116/66 O2 Sat by Pulse 94 L 93 L Oximetry Fraction of 60 Inspired Oxygen (FIO2) - Reevaluation(s) Reevaluation #1: 04/04/24 20:39 Medical records reviewed Reevaluation #2: 04/04/24 20:39 Patient symptoms unchanged Reevaluation #3: 04/04/24 20:40 Patient informed of results questions answered Reevaluation #4: Was pt. sent in by a medical professional or institution (, PA, HANSARD REPORTER, urgent care, hospital, or halfway...) When possible be specific @ -no Did you speak to anyone other than the patient for history (EMS, parent, family, police, friend...)? What history was obtained from this source @ -no Did you review nursing and triage notes (agree or disagree)? Why? @ -agree Are old charts reviewed (outside hosp., previous admission, EMS record, old EKG, old radiological studies, urgent care reports/EKG's, halfway records)? Report findings @ -yes Differential Diagnosis (chest pain, altered mental status, abdominal pain women, abdominal pain men, vaginal bleeding, weakness, fever, dyspnea, syncope, hea dache, dizziness, GI bleed, back pain, seizure, CVA, palpatations, mental health, musculoskeletal)? @ -prior EKG interpreted by me (3pts min.). @ -yes X-rays interpreted by me (1pt min.). @ -yes pulmonary edema CT interpreted by me (1pt min.). @ -no U/S interpreted by me (1pt. min.). @ -no What testing was considered but not performed or refused? (CT, X-rays, U/S, labs)? Why? @ -none What meds were considered but not given or refused? Why? @ -none Did you discuss the management of the patient with other professionals (professionals i.e. , PA, HANSARD REPORTER, lab, RT, psych nurse, social worker aide, catalyst impregnator, teacher, consumer loan officer, case managers)? Give summary @ -no Was smoking cessation discussed for >3mins.? @ -no Was critical care preformed (if so, how long)? @ -yes31 Were there social determinants of health that impacted care today? How? (Homelessness, low income, unemployed, alcoholism, drug addiction, transportation, low edu. Level, literacy, decrease access to med. care, senior care, rehab)? @ -none Was there de-escalation of care discussed even if they declined (Discuss DNR or withdrawal of care, Hospice)? DNR status @ -no What co-morbidities impacted this encounter? (DM, HTN, Smoking, COPD, CAD, Cancer, CVA, ARF, Chemo, Hep., AIDS, mental health diagnosis, sleep apnea, morbid obesity)? @ -none Was patient admitted / discharged? Hospital course, mention meds given and route, prescriptions, significant lab abnormalities, going to OR and other pertinent info. @ - 58 male to the ER for evaluation patient will be admitted for severe COPD and acute renal failure on top of chronic kidney disease. Patient admitted on BiPAP for respiratory distress, persistent significant tremor Admitted Undiagnosed new problem with uncertain prognosis? @ -no Drug Therapy requiring intensive monitoring for toxicity (Heparin, Nitro, Insulin, Cardizem)? @ -no Were any procedures done? @ -no Diagnosis/symptom? @ - Acute, or Chronic, or Acute on Chronic? @ -Acute Uncomplicated (without systemic symptoms) or Complicated (systemic symptoms)? @ -Complicated Side effects of treatment? @ -no Exacerbation, Progression, or Severe Exacerbation? @ -exacerbation Poses a threat to life or bodily function? How? (Chest pain, USA, VT, pneumonia, PE, COPD, DKA, ARF, appy, cholecystitis, CVA, Diverticulitis, Homicidal, Suicidal, threat to staff... and all critical care pts) @ -yes significant respiratory Reevaluation #5: Differential Dyspnea: Coronary syndrome, arrhythmia, tamponade, asthma, COPD, pulmonary embolism, pneumonia, pneumothorax, pulmonary effusion, anaphylaxis, diabetic ketoacidosis, flailed chest, pulmonary contusion, diaphragmatic rupture, anemia, neuromuscular, this is not meant to be an all-inclusive list. - Consultations Consultation #1: Spoke with [facility] who agrees to admit this patient Medical Decision Making - Medical Decision Making 58 male to the ER for evaluation patient will be admitted for severe COPD and acute renal failure on top of chronic kidney disease. Patient admitted on BiPAP for respiratory distress, persistent significant tremor - Lab Data Result diagrams: 04/11/24 06:10 04/11/24 06:10 Lab Results 04/04/24 04/04/24 04/04/24 Range/Units 19:54 19:54 19:54 WBC 7.1 (3.8-10.6) k/uL RBC 5.51 (4.30-5.90) m/uL Hgb 15.6 (13.0-17.5) gm/dL Hct 48.9 (39.0-53.0) % MCV 88.7 (80.0-100.0) fL MCH 28.3 (25.0-35.0) pg MCHC 31.9 (31.0-37.0) g/dL RDW 15.8 H (11.5-15.5) % Plt Count 240 (150-450) k/uL MPV 8.3 Neutrophils % 79 % Lymphocytes % 10 % Monocytes % 7 % Eosinophils % 1 % Basophils % 0 % Neutrophils # 5.6 (1.3-7.7) k/uL Lymphocytes # 0.7 L (1.0-4.8) k/uL Monocytes # 0.5 (0-1.0) k/uL Eosinophils # 0.1 (0-0.7) k/uL Basophils # 0.0 (0-0.2) k/uL PT 11.0 (10.0-12.5) sec INR 1.0 (<1.2) APTT 27.5 (22.0-30.0) sec Sodium 133 L (137-145) mmol/L Potassium 5.6 H (3.5-5.1) mmol/L Chloride 96 L (98-107) mmol/L Carbon Dioxide 24 (22-30) mmol/L Anion Gap 13 mmol/L BUN 119 H* (9-20) mg/dL Creatinine 2.94 H (0.66-1.25) mg/dL Est GFR (CKD-EPI)AfAm 26 (>60 ml/min/1.73 sqM) Est GFR (CKD-EPI)NonAf 22 (>60 ml/min/1.73 sqM) Glucose 88 (74-99) mg/dL Plasma Lactic Acid Ankur (0.7-2.0) mmol/L Calcium 7.7 L (8.4-10.2) mg/dL Magnesium 2.6 H (1.6-2.3) mg/dL Total Bilirubin 1.0 (0.2-1.3) mg/dL AST 44 (17-59) U/L ALT 24 (4-49) U/L Alkaline Phosphatase 108 (38-126) U/L Troponin I (0.000-0.034) ng/mL NT-Pro-B Natriuret Pep 08262 pg/mL Total Protein 7.6 (6.3-8.2) g/dL Albumin 4.4 (3.5-5.0) g/dL 04/04/24 04/04/24 Range/Units 19:54 19:54 WBC (3.8-10.6) k/uL RBC (4.30-5.90) m/uL Hgb (13.0-17.5) gm/dL Hct (39.0-53.0) % MCV (80.0-100.0) fL MCH (25.0-35.0) pg MCHC (31.0-37.0) g/dL RDW (11.5-15.5) % Plt Count (150-450) k/uL MPV Neutrophils % % Lymphocytes % % Monocytes % % Eosinophils % % Basophils % % Neutrophils # (1.3-7.7) k/uL Lymphocytes # (1.0-4.8) k/uL Monocytes # (0-1.0) k/uL Eosinophils # (0-0.7) k/uL Basophils # (0-0.2) k/uL PT (10.0-12.5) sec INR (<1.2) APTT (22.0-30.0) sec Sodium (137-145) mmol/L Potassium (3.5-5.1) mmol/L Chloride (98-107) mmol/L Carbon Dioxide (22-30) mmol/L Anion Gap mmol/L BUN (9-20) mg/dL Creatinine (0.66-1.25) mg/dL Est GFR (CKD-EPI)AfAm (>60 ml/min/1.73 sqM) Est GFR (CKD-EPI)NonAf (>60 ml/min/1.73 sqM) Glucose (74-99) mg/dL Plasma Lactic Acid Ankur 1.4 (0.7-2.0) mmol/L Calcium (8.4-10.2) mg/dL Magnesium (1.6-2.3) mg/dL Total Bilirubin (0.2-1.3) mg/dL AST (17-59) U/L ALT (4-49) U/L Alkaline Phosphatase (38-126) U/L Troponin I 0.017 (0.000-0.034) ng/mL NT-Pro-B Natriuret Pep pg/mL Total Protein (6.3-8.2) g/dL Albumin (3.5-5.0) g/dL - EKG Data -: EKG Interpreted by Me (EKG is A-fib 78 QRS 137 QTc 424) Critical Care Time Critical Care Time: Yes Total Critical Care Time: 31 Disposition Clinical Impression: Pulmonary edema, Pedal edema, COPD (chronic obstructive pulmonary disease), CHF (congestive heart failure), Respiratory failure, Renal insufficiency, CKD (chronic kidney disease), DEBRA (acute kidney injury), Hypoxia, Urinary retention Disposition: ADMITTED IP TO THIS HOSP Condition: Serious Is patient prescribed a controlled substance at d/c from ED?: No Time of Disposition: 20:40
[2024-04-04] MEDS: SODIUM CHLORIDE 0.9% 1,000 ML IV STA (19:50)
[2024-04-04] MEDS: methylPREDNISolone SOD SUCCI 125 MG/2 ML VIAL IV STA (19:52)
[2024-04-04] MEDS: ALBUTEROL NEBULIZED 2.5 MG/3 ML INHALATION STA (20:00)
[2024-04-04] MEDS: IPRATROPIUM 0.5 MG/2.5 ML NEBU INHALATION STA (20:11)
[2024-04-04 20:14] LABS: Basophils % (A) 0 %; Eosinophils # (A) 0.1 k/uL (0-0.7); Eosinophils % (A) 1 %; HCT 48.9 % (39.0-53.0); HGB 15.6 gm/dL (13.0-17.5); Lymphocytes # (A) 0.7 k/uL (1.0-4.8); Lymphocytes % (A) 10 %; MCH 28.3 pg (25.0-35.0); MCHC 31.9 g/dL (31.0-37.0); MCV 88.7 fL (80.0-100.0); Mean Platelet Volume 8.3; Monocytes # (A) 0.5 k/uL (0-1.0); Monocytes % (A) 7 %; Neutrophils # (A) 5.6 k/uL (1.3-7.7); Neutrophils % (A) 79 %; Platelet Count 240 k/uL (150-450); RBC 5.51 m/uL (4.30-5.90); RDW 15.8 % (11.5-15.5); WBC 7.1 k/uL (3.8-10.6)
[2024-04-04 20:27] LABS: ALT 24 U/L (4-49); African American GFR (CKD) 26 (>60 ml/min/1.73 sqM); Albumin 4.4 g/dL (3.5-5.0); Anion Gap 13 mmol/L; Calcium 7.7 mg/dL (8.4-10.2); Carbon Dioxide 24 mmol/L (22-30); Chloride 96 mmol/L (98-107); Glucose 88 mg/dL (74-99); Non-African American GFR(CKD) 22 (>60 ml/min/1.73 sqM); Sodium 133 mmol/L (137-145); Total Protein 7.6 g/dL (6.3-8.2)
[2024-04-04 20:32] LABS: AST 44 U/L (17-59); Alkaline Phosphatase 108 U/L (38-126); Blood Urea Nitrogen 119 mg/dL (9-20); Magnesium 2.6 mg/dL (1.6-2.3); Potassium 5.6 mmol/L (3.5-5.1)
[2024-04-04 20:35] LABS: NT-Pro-B-Type Natriuretic Pept 13300 pg/mL
[2024-04-04] MEDS ORDERED: NALOXONE 0.4 MG/ML 1 ML VIAL IV PRN (20:37)
[2024-04-04] MEDS ORDERED: ONDANSETRON 4 MG/2 ML VIAL IVP PRN (20:37)
[2024-04-04 20:44] LABS: Partial Thromboplastin Time 27.5 sec (22.0-30.0)
[2024-04-04] MEDS: SODIUM CHLORIDE 0.9% 1,000 ML IV SCH (21:18)
[2024-04-04] MEDS: LORazepam 2 MG/ML INJ IV STA (21:18)
[2024-04-04] MEDS: IPRATROPIUM-ALBUTEROL 3 ML NEB INHALATION STA (21:20)
--- NOTE | 2024-04-04 21:29 | XR ---
EXAMINATION TYPE: XR chest 1V portable DATE OF EXAM: 04/04/2024 COMPARISON: 01/11/2024 INDICATION: Pain transverse TECHNIQUE: Single frontal view of the chest is obtained. FINDINGS: The heart size is enlarged. The pulmonary vasculature is normal. Some minimal blunting of costophrenic angle may be present. Minimal effusion and/or atelectasis is no t excluded. There appears to be some streak atelectasis at the right lung base. IMPRESSION: 1. Mild bibasilar infiltrates. Correlate for atelectasis. Minimal left pleural effusion may be presen t. 2. Marked cardiomegaly. [facility], Workstation: [email or web address], 04/04/2024 9:27 PM
[2024-04-04] MEDS ORDERED: IPRATROPIUM-ALBUTEROL 3 ML NEB INHALATION PRN (21:35)
[2024-04-05] MEDS: methylPREDNISolone SOD SUCCI 125 MG/2 ML VIAL IV SCH (00:41)
--- NOTE | 2024-04-05 01:03 | XR ---
EXAM: XR Pelvis, 1 or 2 Views CLINICAL HISTORY: ITS.REASON XR Reason: fall TECHNIQUE: Frontal view of the pelvis. COMPARISON: No relevant prior studies available. FINDINGS: Bones/joints: RIGHT hip arthroplasty. No acute fracture. No dislocation. Soft tissues: Unremarkable. Gastrointestinal tract: Dilated small bowel measures 3.1 cm. IMPRESSION: If there is concern for fracture, recommend CT scan. Dilated small bowel measures 3.1 cm.
--- NOTE | 2024-04-05 01:03 | CT ---
EXAM: CT Head Without Intravenous Contrast CLINICAL HISTORY: ITS.REASON CT Reason: fall TECHNIQUE: Axial computed tomography images of the head/brain without intravenous contrast. CTDI is 45.2 mGy and DLP is 1113 mGy-cm. This CT exam was performed using one or more of the following dose reduction techniques: automated exposure control, adjustment of the mA and/or kV according to patient size, and/or use of iterative reconstruction technique. COMPARISON: No relevant prior studies available. FINDINGS: Brain: Unremarkable. No hemorrhage. No significant white matter disease. No edema. Ventricles: Unremarkable. No ventriculomegaly. Bones/joints: Unremarkable. No acute fracture. Soft tissues: Unremarkable. Sinuses: Unremarkable as visualized. No acute sinusitis. Mastoid air cells: There is a small amount of fluid in the mastoid air cells. No mastoid effusion. IMPRESSION: Normal head/brain CT. EXAM: CT Cervical Spine Without Intravenous Contrast CLINICAL HISTORY: ITS.REASON CT Reason: fall TECHNIQUE: Axial computed tomography images of the cervical spine without intravenous contrast. CTDI is 22.9 mGy and DLP is 612.9 mGy-cm. This CT exam was performed using one or more of the following dose reduction techniques: automated exposure control, adjustment of the mA and/or kV according to patient size, and/or use of iterative reconstruction technique. COMPARISON: No relevant prior studies available. FINDINGS: This study is limited secondary to motion artifact. Vertebrae: Unremarkable. No acute fracture. Discs/spinal canal/neural foramina: No acute findings. Critical spinal canal stenosis at C5-6. Soft tissues: Unremarkable. IMPRESSION: No evidence of acute cervical spine pathology. Critical spinal canal stenosis at C5-6. Recommend MRI of the cervical spine to evaluate for myelopathy.
--- NOTE | 2024-04-05 01:03 | XR ---
EXAM: XR Chest, 1 View CLINICAL HISTORY: ITS.REASON XR Reason: fall TECHNIQUE: Frontal view of the chest. COMPARISON: No relevant prior studies available. FINDINGS: Lungs: See below. Pleural space: Unremarkable. No pneumothorax. Heart: Severe cardiomegaly. Pulmonary vascular congestion. Mediastinum: Unremarkable. Normal mediastinal contour. Bones/joints: Unremarkable. No acute fracture. IMPRESSION: Severe cardiomegaly. Pulmonary vascular congestion. Correlate for mild CHF.
[2024-04-05 07:01] LABS: Anisocytosis Slight; Basophils % (A) 0 %; Eosinophils % (A) 0 %; HCT 51.4 % (39.0-53.0); Lymphocytes # (A) 0.2 k/uL (1.0-4.8); Lymphocytes % (A) 4 %; MCH 29.4 pg (25.0-35.0); MCV 89.2 fL (80.0-100.0); Mean Platelet Volume 8.1; Monocytes # (A) 0.2 k/uL (0-1.0); Monocytes % (A) 3 %; Neutrophils # (A) 4.6 k/uL (1.3-7.7); Neutrophils % (A) 92 %; Platelet Count 204 k/uL (150-450); Poikilocytosis Slight; RBC 5.76 m/uL (4.30-5.90)
[2024-04-05 07:19] LABS: ALT 24 U/L (4-49); AST 27 U/L (17-59); African American GFR (CKD) 38 (>60 ml/min/1.73 sqM); Albumin 4.5 g/dL (3.5-5.0); Alkaline Phosphatase 99 U/L (38-126); Anion Gap 16 mmol/L; Calcium 8.1 mg/dL (8.4-10.2); Carbon Dioxide 24 mmol/L (22-30); Chloride 97 mmol/L (98-107); Glucose 154 mg/dL (74-99); Magnesium 2.6 mg/dL (1.6-2.3); Non-African American GFR(CKD) 33 (>60 ml/min/1.73 sqM); Potassium 5.6 mmol/L (3.5-5.1); Sodium 137 mmol/L (137-145); Total Protein 7.9 g/dL (6.3-8.2)
[2024-04-05 07:22] LABS: Blood Urea Nitrogen 106 mg/dL (9-20)
[2024-04-05] MEDS: IPRATROPIUM-ALBUTEROL 3 ML NEB INHALATION SCH (09:08)
[2024-04-05] MEDS: PANTOPRAZOLE 40 MG/10 ML VIAL IV SCH (09:24)
[2024-04-05] MEDS: FUROSEMIDE 10 MG/ML 10 ML VIAL IV SCH (09:24)
--- NOTE | 2024-04-05 11:03 | P.NPCON ---
History of Present Illness - Reason for Consult acute renal failure - History of Present Illness patient is a 58-year-old male with history of chronic diastolic CHF, hypertension, A. fib, morbid obesity, COPD. He is admitted to the hospital with complaints of shortness of breath. Patient has had multiple admissions for CHF exacerbation and volume overload. He was recently discharged from the hospital on 01/14/2024. Patient had acute kidney injury with serum creatinine at 2.14 at peak and decreased to 1.17 at the time of discharge. Serum creatinine was 2.9 on admission and decreased to 2.1 today. Blood pressure was low on initial admission with systolic blood pressure at 93 mmHg. Patient was maintained on Cozaar is currently on hold. He patient is currently being diuresed. He is also maintained on BiPAP. External catheter noted with 24 hour urine output documented at 3.6 L. Review of Systems as per HPI. No fever chills nausea vomiting 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 History of Any Multi-Drug Resistant Organisms: MRSA Date of last positivie culture/infection: 11/15/22 MDRO Source:: Left Leg Past Surgical History: Hernia Repair, Joint Replacement, Orthopedic Surgery Additional Past Surgical History / Comment(s): RT ARMAND, rt foot SX, Past Anesthesia/Blood Transfusion Reactions: No Reported Reaction Past Psychological History: Depression Smoking Status: Former smoker Past Alcohol Use History: None Reported Additional Past Alcohol Use History / Comment(s): QUIT SMOKING 2021 Past Drug Use History: None Reported - Past Family History Mother Family Medical History: No Reported History Medications and Allergies Home Medications Medication Instructions Recorded Confirmed Type Losartan [Cozaar] 25 mg PO HS 07/09/22 04/04/24 History hydrOXYzine pamoate [Vistaril] 50 mg PO HS PRN 07/09/22 04/04/24 History Atorvastatin [Lipitor] 10 mg PO DAILY 08/01/22 04/04/24 History Dapagliflozin Propanediol [Farxiga] 10 mg PO DAILY 30 Days #30 tab 09/10/22 04/04/24 Rx Famotidine [Pepcid] 20 mg PO BID #60 tab 09/10/22 04/04/24 Rx Metoprolol Succinate (ER) [Toprol 100 mg PO DAILY 30 Days #30 tab 09/10/22 04/04/24 Rx XL] busPIRone HCl [Buspar] 5 mg PO TID 30 Days #90 tab 09/10/22 04/04/24 Rx traMADol HCl [Ultram] 50 mg PO Q6H PRN #4 tab 01/11/23 04/04/24 Rx Apixaban [Eliquis] 5 mg PO BID 12/12/23 04/04/24 History Finasteride [Proscar] 5 mg PO DAILY 12/12/23 04/04/24 History QUEtiapine [SEROquel] 50 mg PO HS 12/12/23 04/04/24 History Sertraline [Zoloft] 50 mg PO DAILY 12/12/23 04/04/24 History Acetaminophen-Codeine 300-30mg 1 tab PO Q6H PRN 04/04/24 04/04/24 History [Tylenol w/codeine #3] Albuterol Sulfate [Ventolin HFA] 1 puff INHALATION RT-BID 04/04/24 04/04/24 History Cephalexin [Keflex] 500 mg PO Q12HR 04/04/24 04/04/24 History Furosemide [Lasix] 40 mg PO DAILY 04/04/24 04/04/24 History Pregabalin [Lyrica] 150 mg PO Q8H PRN 04/04/24 04/04/24 History Spironolactone [Aldactone] 25 mg PO DAILY 04/04/24 04/04/24 History dilTIAZem HCL [dilTIAZem HCL 24Hr 120 mg PO DAILY 04/04/24 04/04/24 History ER (CD)] Allergies Allergy/AdvReac Type Severity Reaction Status Date / Time No Known Allergies Allergy Verified 04/04/24 20:03 Physical Exam Vitals: Vital Signs Temp Pulse Pulse Resp BP BP Pulse Ox 04/05/24 09:24 116 H 04/05/24 09:17 04/05/24 09:08 118 H 04/05/24 08:00 82 26 H 112/78 98 04/05/24 04:00 80 26 H 154/97 04/05/24 03:18 04/05/24 00:00 97.9 F 85 15 118/72 04/04/24 23:36 04/04/24 23:12 98 20 116/66 93 L 04/04/24 22:15 04/04/24 22:00 90 20 107/74 94 L 04/04/24 21:50 95 04/04/24 21:22 04/04/24 21:20 98 04/04/24 21:00 85 20 135/81 95 04/04/24 20:15 95 04/04/24 19:50 96 04/04/24 18:45 04/04/24 18:44 04/04/24 18:37 97.9 F 77 18 93/66 90 L FiO2 04/05/24 09:24 04/05/24 09:17 50 04/05/24 09:08 04/05/24 08:00 50 04/05/24 04:00 60 04/05/24 03:18 60 04/05/24 00:00 60 04/04/24 23:36 60 04/04/24 23:12 04/04/24 22:15 60 04/04/24 22:00 04/04/24 21:50 04/04/24 21:22 50 04/04/24 21:20 04/04/24 21:00 04/04/24 20:15 04/04/24 19:50 04/04/24 18:45 50 04/04/24 18:44 100 04/04/24 18:37 Intake and Output 04/04/24 04/05/24 04/05/24 22:59 06:59 14:59 Intake Total 240 Output Total 1100 2500 Balance -1100 -2500 240 Intake: Oral 240 Output: Urine 1100 2500 Uretheral (Cisneros) 1100 1100 Other: Voiding Method External Catheter Weight 163.293 kg 94 kg patient is currently on BiPAP. Examination of the heart S1 and S2 Examination of the lungs decreased breath sounds at the bases Abdomen is soft morbidly obese Examination lower extremity shows chronic skin changes bilaterally with chronic edema bilaterally 2-3+. Results - Lab Results Most recent lab results Calcium 8.1 mg/dL (8.4-10.2) L 04/05/24 06:34 Phosphorus 7.0 mg/dL (2.5-4.5) H 04/05/24 06:34 Magnesium 2.6 mg/dL (1.6-2.3) H 04/05/24 06:34 10/06/24 06:34 04/05/24 06:34 Assessment and Plan Assessment: 1. Acute kidney injury, ATN from low blood pressure and with cardiorenal syndrome.. Nonoliguric and responding well to diuresis. Ultrasound of the kidneys on 01/11/2024 did not show any significant obstructive uropathy. UA on 01/09/2024 showed 1+ protein and trace blood. 2. Chronic diastolic CHF with acute exacerbation 3. Volume overload 4. Chronic A. fib 5. Morbid obesity 6. Acute hypoxic respiratory failure secondary to volume overload, currently maintained on BiPAP 7. Hyperkalemia associated with acute kidney injury in the setting of use of angiotensin receptor blockers and Aldactone. Expect improvement with diuresis. Plan: continue with current dose of Lasix. Repeat labs in a.m. Low potassium diet when patient is eating. DC IV fluids Thank you for the consultation. We will continue to follow the patient with you during his hospitalization.
[2024-04-05 12:47] LABS: ABG Base Excess 3.4 mmol/L; ABG HCO3 31 mmol/L (21-25); ABG Oxygen Saturation 93.7 % (94-97); ABG PCO2 55 mmHg (35-45); ABG PH 7.35 (7.35-7.45); ABG PO2 68 mmHg (83-108); ABG TCO2 32 mmol/L (19-24); Allen Test Performed? Yes
--- NOTE | 2024-04-05 12:50 | US ---
EXAMINATION TYPE: US kidneys/renal and bladder DATE OF EXAM: 04/05/2024 COMPARISON: US 01/11/2024 CLINICAL INDICATION: Male, 58 years old with history of DEBRA; DEBRA TECHNIQUE: Grayscale and color Doppler imaging of the bilateral kidneys and urinary bladder: EXAM MEASUREMENTS: Right Kidney: 12.6 x 6.9 x 5.2 cm Left Kidney: 13.3 x 4.8 x 6.2 cm Right Kidney: No hydronephrosis or masses seen Left Kidney: Enlarged. No hydronephrosis or masses seen Bladder: Not seen Bilateral Jets seen: No Area seen near the spleen, isoechoic to spleen: 2.1 x 1.7 x 1.9 cm., Likely a splenule. IMPRESSION: 1. No acute renal ultrasound abnormality [facility], Workstation: [email or web address], 04/05/2024 12:48 PM
[2024-04-05] MEDS: DILTIAZEM CD 120 MG CAP.ER.24H PO SCH (13:57)
--- NOTE | 2024-04-05 14:14 | P.HPIM ---
History of Present Illness H&P Date: 04/05/24 History of present illness; patient is 58-year-old gentleman past medical history significant for congestive heart failure, atrial fibrillation, hypertension, hyperlipidemia, chronic kidney disease, COPD, and morbid obesity who presented the ER because of generalized debility and increasing weakness. Patient stated that he has been feeling like this for the last few weeks. Patient has been complaining of shortness of breath at rest as on exertion. Patient states that he is unable to get around. Denies any chest pain. There is no complaint of palpitations. Patient also complained of increased shakiness and tremors. Denies any fever or chills. There is no complaint of chest pain. There is no complaint orthopnea or PND. Because of the symptoms, patient presented to the ER Initial lab work done in the ER showed WBC 1.1, hemoglobin 15.6, platelet count 240, INR 1, sodium 133, potassium 5.6, chloride 96, BUN 119, creatinine 2.94 glucose 88, calcium 7.7, magnesium 2.6, bilirubin 1, troponin 0.017, proBNP 13,300 EKG done in the ER showed heart rate of 78, irregular rhythm, no ST segment elevation or depression seen, T-wave inversions seen in leads II, III and aVF. V1 to V4. Chest x-ray done in the ER showed mild bibasilar infiltrates, marked cardiomegaly CT head done showed no acute intracranial process CT cervical spine done showed no evidence of any cervical spine pathology X-ray pelvis does not show any evidence of fracture Patient admitted to internal medicine service REVIEW OF SYSTEMS: CONSTITUTIONAL: As mentioned above HEENT: No recent visual problems or hearing problems. Denied any sore throat. CARDIOVASCULAR: As mentioned above PULMONARY: As mentioned above GASTROINTESTINAL: No diarrhea, no nausea, no vomiting, no abdominal pain. NEUROLOGICAL: No headaches, no weakness, no numbness. HEMATOLOGICAL: Denies any bleeding or petechiae. GENITOURINARY: Denies any burning micturition, frequency, or urgency. MUSCULOSKELETAL/RHEUMATOLOGICAL: Denies any joint pain, swelling, or any muscle pain. ENDOCRINE: Denies any polyuria or polydipsia. The rest of the 14-point review of systems is negative. PHYSICAL EXAMINATION: GENERAL: The patient is alert and oriented x3, chronically ill looking HEENT: Pupils are round and equally reacting to light. EOMI. No scleral icterus. No conjunctival pallor. Normocephalic, atraumatic. No pharyngeal erythema. No t hyromegaly. CARDIOVASCULAR: S1 and S2 present. No murmurs, rubs, or gallops. PULMONARY: Chest is clear to auscultation, no wheezing or crackles. ABDOMEN: Soft, nontender, nondistended, normoactive bowel sounds. No palpable organomegaly. MUSCULOSKELETAL: No joint swelling or deformity. EXTREMITIES: No cyanosis, clubbing, or pedal edema. NEUROLOGICAL: Gross neurological examination did not reveal any focal deficits. SKIN: No rashes. Assessment and plan Acute hypoxic respiratory failure Acute kidney injury Hyperkalemia Hyponatremia Acute on chronic heart failure with preserved EF, 60 to 65% Persistent atrial fibrillation Hyperkalemia Hypertension Hyperlipidemia Chronic kidney disease COPD Morbid obesity: BMI 48.7 Obstructive sleep apnea, noncompliant with CPAP outpatient Monitor vital signs Monitor CBC Monitor CMP Continue telemetry monitoring Continue oxygen supplementation Ordered BiPAP Ordered breathing treatment ordered strict I's and O's, daily weights Ordered nephrotoxic agents Ordered IV Lasix 60 mg twice a day Order ultrasound kidneys Consult nephrology Consult cardiology Consult pulmonary Labs and medication were reviewed.. Continue same treatment. Continue with symptomatic treatment. Resume home medication. Monitor labs and vitals. DVT and GI prophylaxis. Further recommendations as per clinical course of the patient Dictation was produced using [employer] dictation software. please excuse any grammatical, word or spelling errors. 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 History of Any Multi-Drug Resistant Organisms: MRSA Date of last positivie culture/infection: 11/15/22 MDRO Source:: Left Leg Past Surgical History: Hernia Repair, Joint Replacement, Orthopedic Surgery Additional Past Surgical History / Comment(s): RT ARMAND, rt foot SX, Past Anesthesia/Blood Transfusion Reactions: No Reported Reaction Past Psychological History: Depression Smoking Status: Former smoker Past Alcohol Use History: None Reported Additional Past Alcohol Use History / Comment(s): QUIT SMOKING 2021 Past Drug Use History: None Reported - Past Family History Mother Family Medical History: No Reported History Medications and Allergies Home Medications Medication Instructions Recorded Confirmed Type Losartan [Cozaar] 25 mg PO HS 07/09/22 04/04/24 History hydrOXYzine pamoate [Vistaril] 50 mg PO HS PRN 07/09/22 04/04/24 History Atorvastatin [Lipitor] 10 mg PO DAILY 08/01/22 04/04/24 History Dapagliflozin Propanediol [Farxiga] 10 mg PO DAILY 30 Days #30 tab 09/10/22 04/04/24 Rx Famotidine [Pepcid] 20 mg PO BID #60 tab 09/10/22 04/04/24 Rx Metoprolol Succinate (ER) [Toprol 100 mg PO DAILY 30 Days #30 tab 09/10/22 04/04/24 Rx XL] busPIRone HCl [Buspar] 5 mg PO TID 30 Days #90 tab 09/10/22 04/04/24 Rx traMADol HCl [Ultram] 50 mg PO Q6H PRN #4 tab 01/11/23 04/04/24 Rx Apixaban [Eliquis] 5 mg PO BID 12/12/23 04/04/24 History Finasteride [Proscar] 5 mg PO DAILY 12/12/23 04/04/24 History QUEtiapine [SEROquel] 50 mg PO HS 12/12/23 04/04/24 History Sertraline [Zoloft] 50 mg PO DAILY 12/12/23 04/04/24 History Acetaminophen-Codeine 300-30mg 1 tab PO Q6H PRN 04/04/24 04/04/24 History [Tylenol w/codeine #3] Albuterol Sulfate [Ventolin HFA] 1 puff INHALATION RT-BID 04/04/24 04/04/24 History Cephalexin [Keflex] 500 mg PO Q12HR 04/04/24 04/04/24 History Furosemide [Lasix] 40 mg PO DAILY 04/04/24 04/04/24 History Pregabalin [Lyrica] 150 mg PO Q8H PRN 04/04/24 04/04/24 History Spironolactone [Aldactone] 25 mg PO DAILY 04/04/24 04/04/24 History dilTIAZem HCL [dilTIAZem HCL 24Hr 120 mg PO DAILY 04/04/24 04/04/24 History ER (CD)] Allergies Allergy/AdvReac Type Severity Reaction Status Date / Time No Known Allergies Allergy Verified 04/04/24 20:03 Physical Exam Vitals: Vital Signs Temp Pulse Pulse Resp BP BP Pulse Ox 04/05/24 09:24 116 H 04/05/24 09:17 04/05/24 09:08 118 H 04/05/24 04:00 80 26 H 154/97 04/05/24 03:18 04/05/24 00:00 97.9 F 85 15 118/72 04/04/24 23:36 04/04/24 23:12 98 20 116/66 93 L 04/04/24 22:15 04/04/24 22:00 90 20 107/74 94 L 04/04/24 21:50 95 04/04/24 21:22 04/04/24 21:20 98 04/04/24 21:00 85 20 135/81 95 04/04/24 20:15 95 04/04/24 19:50 96 04/04/24 18:45 04/04/24 18:44 04/04/24 18:37 97.9 F 77 18 93/66 90 L FiO2 04/05/24 09:24 04/05/24 09:17 50 04/05/24 09:08 04/05/24 04:00 60 04/05/24 03:18 60 04/05/24 00:00 60 04/04/24 23:36 60 04/04/24 23:12 04/04/24 22:15 60 04/04/24 22:00 04/04/24 21:50 04/04/24 21:22 50 04/04/24 21:20 04/04/24 21:00 04/04/24 20:15 04/04/24 19:50 04/04/24 18:45 50 04/04/24 18:44 100 04/04/24 18:37 Intake and Output 04/04/24 04/05/24 04/05/24 22:59 06:59 14:59 Intake Total 240 Output Total 1100 2500 Balance -1100 -2500 240 Intake: Oral 240 Output: Urine 1100 2500 Uretheral (Cisneros) 1100 1100 Other: Voiding Method External Catheter Weight 163.293 kg 94 kg Results CBC & Chem 7: 04/05/24 06:34 04/05/24 06:34 Labs: Abnormal Lab Results - Last 24 Hours (Table) 04/04/24 04/04/24 04/05/24 Range/Units 19:54 19:54 06:34 RDW 15.8 H 16.0 H (11.5-15.5) % Lymphocytes # 0.7 L 0.2 L (1.0-4.8) k/uL Sodium 133 L (137-145) mmol/L Potassium 5.6 H (3.5-5.1) mmol/L Chloride 96 L (98-107) mmol/L BUN 119 H* (9-20) mg/dL Creatinine 2.94 H (0.66-1.25) mg/dL Glucose (74-99) mg/dL Calcium 7.7 L (8.4-10.2) mg/dL Phosphorus (2.5-4.5) mg/dL Magnesium 2.6 H (1.6-2.3) mg/dL 04/05/24 Range/Units 06:34 RDW (11.5-15.5) % Lymphocytes # (1.0-4.8) k/uL Sodium (137-145) mmol/L Potassium 5.6 H (3.5-5.1) mmol/L Chloride 97 L (98-107) mmol/L BUN 106 H* (9-20) mg/dL Creatinine 2.13 H (0.66-1.25) mg/dL Glucose 154 H (74-99) mg/dL Calcium 8.1 L (8.4-10.2) mg/dL Phosphorus 7.0 H (2.5-4.5) mg/dL Magnesium 2.6 H (1.6-2.3) mg/dL Thrombosis Risk Factor Assmnt - Choose All That Apply Any of the Below Risk Factors Present?: Yes Each Factor Represents 1 point: Abnormal pulmonary function (COPD), Age 41-60 y ears, Obesity (BMI >25), Varicose veins Other Risk Factors: Yes Each Risk Factor Represents 2 Points: Patient confined to bed Other congenital or acquired thrombophilia - If yes, enter type in comment: No Thrombosis Risk Factor Assessment Total Risk Factor Score: 6 Thrombosis Risk Factor Assessment Level: High Risk
--- NOTE | 2024-04-05 14:37 | P.CNPUL ---
History of Present Illness Consult date: 04/05/24 Requesting physician: Salvador Buckner Reason for consult: other (Shortness of breath shortness of breath, COPD) Chief complaint: Weakness and shortness of breath History of present illness: This is a 58-year-old white male with morbid obesity, chronic diastolic congestive heart failure, chronic obstructive pulmonary disease, chronic kidney disease, familiar to my service from previous admissions, patient presented to the ER with few days history of increased shortness of breath, weakness, generalized medical debility. No chest pain, no fever, no chills, no hemoptysis, workup in the ER included CBC that showed WBC count of 7.1 hemoglobin 15.6, abnormal potassium of 5.6 abnormal renal profile with a BUN of 119 creatinine 2.94 and abnormal BNP level of 13,300. On his initial arrival, patient was in moderate respiratory distress he was placed on BiPAP 14/6/50%, when I saw the patient I recommended an ABG that showed a pO2 of 68 pCO2 55 pH of 7.35 and this was on BiPAP. Chest x-ray showed evidence of mild interstitial edema and the patient is now on Lasix 60 mg IV push twice daily. Patient is on bronchodilators he is also on methylprednisolone 60 mg IV push every 6 hours. Review of Systems CONSTITUTIONAL: Weakness fatigue medical debility HEENT: Negative CARDIOVASCULAR: As noted in HPI PULMONARY: Shortness of breath intermittent cough, occasional wheezing GASTROINTESTINAL: Negative NEUROLOGICAL: Negative HEMATOLOGICAL: Negative GENITOURINARY: Negative MUSCULOSKELETAL/RHEUMATOLOGICAL: Negative ENDOCRINE: Negative Past Medical History Past Medical History: Atrial Fibrillation, Asthma, Heart Failure, COPD, Hy perlipidemia, Hypertension, Sleep Apnea/CPAP/BIPAP Additional Past Medical History / Comment(s): USES C PAP MACHINE History of Any Multi-Drug Resistant Organisms: MRSA Date of last positivie culture/infection: 11/15/22 MDRO Source:: Left Leg Past Surgical History: Hernia Repair, Joint Replacement, Orthopedic Surgery Additional Past Surgical History / Comment(s): RT ARMAND, rt foot SX, Past Anesthesia/Blood Transfusion Reactions: No Reported Reaction Past Psychological History: Depression Smoking Status: Former smoker Past Alcohol Use History: None Reported Additional Past Alcohol Use History / Comment(s): QUIT SMOKING 2021 Past Drug Use History: None Reported - Past Family History Mother Family Medical History: No Reported History Medications and Allergies Home Medications Medication Instructions Recorded Confirmed Type Losartan [Cozaar] 25 mg PO HS 07/09/22 04/04/24 History hydrOXYzine pamoate [Vistaril] 50 mg PO HS PRN 07/09/22 04/04/24 History Atorvastatin [Lipitor] 10 mg PO DAILY 08/01/22 04/04/24 History Dapagliflozin Propanediol [Farxiga] 10 mg PO DAILY 30 Days #30 tab 09/10/22 04/04/24 Rx Famotidine [Pepcid] 20 mg PO BID #60 tab 09/10/22 04/04/24 Rx Metoprolol Succinate (ER) [Toprol 100 mg PO DAILY 30 Days #30 tab 09/10/22 04/04/24 Rx XL] busPIRone HCl [Buspar] 5 mg PO TID 30 Days #90 tab 09/10/22 04/04/24 Rx traMADol HCl [Ultram] 50 mg PO Q6H PRN #4 tab 01/11/23 04/04/24 Rx Apixaban [Eliquis] 5 mg PO BID 12/12/23 04/04/24 History Finasteride [Proscar] 5 mg PO DAILY 12/12/23 04/04/24 History QUEtiapine [SEROquel] 50 mg PO HS 12/12/23 04/04/24 History Sertraline [Zoloft] 50 mg PO DAILY 12/12/23 04/04/24 History Acetaminophen-Codeine 300-30mg 1 tab PO Q6H PRN 04/04/24 04/04/24 History [Tylenol w/codeine #3] Albuterol Sulfate [Ventolin HFA] 1 puff INHALATION RT-BID 04/04/24 04/04/24 History Cephalexin [Keflex] 500 mg PO Q12HR 04/04/24 04/04/24 History Furosemide [Lasix] 40 mg PO DAILY 04/04/24 04/04/24 History Pregabalin [Lyrica] 150 mg PO Q8H PRN 04/04/24 04/04/24 History Spironolactone [Aldactone] 25 mg PO DAILY 04/04/24 04/04/24 History dilTIAZem HCL [dilTIAZem HCL 24Hr 120 mg PO DAILY 04/04/24 04/04/24 History ER (CD)] Allergies Allergy/AdvReac Type Severity Reaction Status Date / Time No Known Allergies Allergy Verified 04/04/24 20:03 Physical Exam Vitals: Vital Signs Temp Pulse Pulse Resp BP BP Pulse Ox 04/05/24 12:13 98 04/05/24 12:00 96 93 19 115/64 93 L 04/05/24 11:59 04/05/24 09:24 116 H 04/05/24 09:17 04/05/24 09:08 118 H 04/05/24 08:00 82 26 H 112/78 98 04/05/24 04:00 80 26 H 154/97 04/05/24 03:18 04/05/24 00:00 97.9 F 85 15 118/72 04/04/24 23:36 04/04/24 23:12 98 20 116/66 93 L 04/04/24 22:15 04/04/24 22:00 90 20 107/74 94 L 04/04/24 21:50 95 04/04/24 21:22 04/04/24 21:20 98 04/04/24 21:00 85 20 135/81 95 04/04/24 20:15 95 04/04/24 19:50 96 04/04/24 18:45 04/04/24 18:44 04/04/24 18:37 97.9 F 77 18 93/66 90 L FiO2 04/05/24 12:13 04/05/24 12:00 50 04/05/24 11:59 50 04/05/24 09:24 04/05/24 09:17 50 04/05/24 09:08 04/05/24 08:00 50 04/05/24 04:00 60 04/05/24 03:18 60 04/05/24 00:00 60 04/04/24 23:36 60 04/04/24 23:12 04/04/24 22:15 60 04/04/24 22:00 04/04/24 21:50 04/04/24 21:22 50 04/04/24 21:20 04/04/24 21:00 04/04/24 20:15 04/04/24 19:50 04/04/24 18:45 50 04/04/24 18:44 100 04/04/24 18:37 Intake and Output 04/04/24 04/05/24 04/05/24 22:59 06:59 14:59 Intake Total 240 Output Total 1100 2500 6100 Balance -7625 -6237 -7130 Intake: Oral 240 Output: Urine 1100 2500 6100 Uretheral (Cisneros) 1100 1100 1100 Other: Voiding Method External Catheter External Catheter Weight 163.293 kg 94 kg GENERAL EXAM: Reveals 58-year-old white male obese in no distress on BiPAP 14/6/50% HEAD: Normocephalic and atraumatic EYES: Normal reaction of pupils, equal size. NOSE: Clear with pink turbinates. THROAT: No erythema or exudates. NECK: No masses, no JVD. CHEST: No chest wall deformity. LUNGS: Diminished breath sounds at the bases with minimal crackles at the bases, no wheezing noted. CVS: distant heart sounds, S1 and S2 normal with no audible murmur, irregular rhythm. No extra heart sounds ABDOMEN: obese abdomen, active bowel sounds, no hepatosplenomegaly, no guarding or rigidity. SKIN: chronic venous stasis changes of bilateral lower extremities along with many superficial venous stasis ulcers CENTRAL NERVOUS SYSTEM: No focal deficits, tone is normal in all 4 extremities. EXTREMITIES: There is severe 3+ bilateral lower extremity pitting edema. No clubbing, or cyanosis. Peripheral pulses are intact., Results - Laboratory Findings CBC and BMP: 04/05/24 06:34 04/05/24 06:34 ABG ABG pH 7.35 (7.35-7.45) 04/05/24 12:41 ABG pCO2 55 mmHg (35-45) H 04/05/24 12:41 ABG pO2 68 mmHg (83-108) L 04/05/24 12:41 ABG O2 Saturation 93.7 % (94-97) L 04/05/24 12:41 PT/INR, D-dimer PT 11.0 sec (10.0-12.5) 04/04/24 19:54 INR 1.0 (<1.2) 04/04/24 19:54 Abnormal lab findings: Abnormal Labs 04/04/24 04/04/24 04/05/24 19:54 19:54 06:34 RDW 15.8 H 16.0 H Lymphocytes # 0.7 L 0.2 L ABG pCO2 ABG pO2 ABG HCO3 ABG Total CO2 ABG O2 Saturation Sodium 133 L Potassium 5.6 H Chloride 96 L BUN 119 H* Creatinine 2.94 H Glucose Calcium 7.7 L Phosphorus Magnesium 2.6 H 04/05/24 04/05/24 06:34 12:41 RDW Lymphocytes # ABG pCO2 55 H ABG pO2 68 L ABG HCO3 31 H ABG Total CO2 32 H ABG O2 Saturation 93.7 L Sodium Potassium 5.6 H Chloride 97 L BUN 106 H* Creatinine 2.13 H Glucose 154 H Calcium 8.1 L Phosphorus 7.0 H Magnesium 2.6 H - Diagnostic Findings Chest x-ray: image reviewed (As noted in HPI) Assessment and Plan Assessment: Impression: Acute on chronic hypoxemic, and hypercapnic respiratory failure, secondary to an exacerbation of chronic diastolic congestive heart failure. Chest x-ray showing cardiomegaly, pulmonary vascular congestion, interstitial edema. Very severe chronic obstructive pulmonary disease, with an FEV1 22% of predicted Obstructive sleep apnea, patient is noncompliant with his noninvasive positive airway pressure machine Morbid obesity, with a BMI of 48.7 kg/m Acute on chronic kidney disease Hyperkalemia, secondary to above Chronic lower extremity edema, with multiple venous stasis ulcers History of hypertension History of hyperlipidemia Former tobacco dependence Recommendation: Continue BiPAP for now and intermittently transition to nasal cannula with close monitoring of his O2 saturation keep it in the low 90s percent Continue diuretics patient is on Lasix 60 mg IV push twice daily Continue bronchodilators for COPD Continue oxygen and titrate accordingly Continue Eliquis Continue to monitor electrolytes and renal profile Overall prognosis is extremely poor and guarded. Mostly because of his multiple comorbidities. Will continue to follow Time with Patient: Greater than 30
[2024-04-05] MEDS: busPIRone HCl 5 MG TAB PO SCH (16:53)
[2024-04-05] MEDS ORDERED: ALBUTEROL HFA INHALER INHALATION SCH (20:00)
[2024-04-05 20:15] LABS: Glucose,Whole Blood 231 mg/dL (70-110)
[2024-04-05] MEDS ORDERED: DEXTROSE 50% SYRINGE 50 ML IVP PRN ×2 (20:47)
[2024-04-05] MEDS: SYMBICORT 160-4.5 MCG INHALER INHALATION SCH (21:19)
[2024-04-05] MEDS: APIXABAN 5 MG TAB PO SCH (21:30)
[2024-04-05] MEDS: INSULIN ASPART (NovoLOG) 100 UNIT/ML VIAL SQ SCH (21:30)
[2024-04-05] MEDS: QUEtiapine 50 MG TAB PO SCH (21:30)
[2024-04-05] MEDS: LORazepam 2 MG/ML INJ IV PRN (22:58)
[2024-04-06] MEDS: DILTIAZEM DRIP BOLUS FROM BAG 1 MG SOLN IV ONE (03:30)
[2024-04-06] MEDS: DILTIAZEM 125 MG in SODIUM CHLORIDE 0.9% 100 ML IV SCH (03:32)
[2024-04-06 05:56] LABS: Glucose,Whole Blood 192 mg/dL (70-110)
[2024-04-06 06:46] LABS: Basophils % (A) 0 %; Eosinophils % (A) 0 %; HCT 45.4 % (39.0-53.0); HGB 15.1 gm/dL (13.0-17.5); Lymphocytes # (A) 0.4 k/uL (1.0-4.8); Lymphocytes % (A) 4 %; MCH 29.4 pg (25.0-35.0); MCHC 33.2 g/dL (31.0-37.0); MCV 88.7 fL (80.0-100.0); Monocytes # (A) 0.4 k/uL (0-1.0); Monocytes % (A) 4 %; Neutrophils # (A) 8.2 k/uL (1.3-7.7); Neutrophils % (A) 91 %; Platelet Count 206 k/uL (150-450); RBC 5.12 m/uL (4.30-5.90); RDW 15.4 % (11.5-15.5)
[2024-04-06 07:05] LABS: ALT 18 U/L (4-49); AST 19 U/L (17-59); African American GFR (CKD) 54 (>60 ml/min/1.73 sqM); Albumin 3.8 g/dL (3.5-5.0); Alkaline Phosphatase 88 U/L (38-126); Anion Gap 6 mmol/L; Blood Urea Nitrogen 97 mg/dL (9-20); Calcium 8.6 mg/dL (8.4-10.2); Carbon Dioxide 34 mmol/L (22-30); Chloride 97 mmol/L (98-107); Glucose 169 mg/dL (74-99); Non-African American GFR(CKD) 46 (>60 ml/min/1.73 sqM); Potassium 4.4 mmol/L (3.5-5.1); Sodium 137 mmol/L (137-145); Total Bilirubin 0.9 mg/dL (0.2-1.3); Total Protein 6.7 g/dL (6.3-8.2)
--- NOTE | 2024-04-06 09:31 | P.PN ---
Subjective Patient is seen in follow-up for acute kidney injury on chronic kidney disease. Renal function improving. On IV Lasix. Currently on BiPAP. Started on Cardizem drip for A-fib. Vital signs are stable. General: No acute distress. HEENT: Head exam is unremarkable. LUNGS: No audible rhonchi or wheezes. HEART: Rate and Rhythm are regular. ABDOMEN: Obese, no distention. EXTREMITITES: 1+ edema. Objective - Vital Signs Vital signs: Vital Signs Temp 97.9 F 04/06/24 03:39 Pulse 124 H 04/06/24 03:39 Resp 18 04/06/24 03:39 BP 109/55 04/06/24 03:39 Pulse Ox 96 04/06/24 03:39 FiO2 50 04/06/24 09:04 Intake & Output 04/05/24 04/06/24 04/06/24 18:59 06:59 18:59 Intake Total 240 Output Total 7900 3050 Balance -7660 -3050 Weight 151.6 kg Intake: Oral 240 Output: Urine 7900 3050 Uretheral (Cisneros) 2200 Other: Voiding Method External Catheter Indwelling Catheter - Labs CBC & Chem 7: 04/06/24 06:16 04/06/24 06:16 Labs: Abnormal Lab Results - Last 24 Hours (Table) 04/05/24 04/05/24 04/06/24 Range/Units 12:41 20:13 05:54 Neutrophils # (1.3-7.7) k/uL Lymphocytes # (1.0-4.8) k/uL ABG pCO2 55 H (35-45) mmHg ABG pO2 68 L (83-108) mmHg ABG HCO3 31 H (21-25) mmol/L ABG Total CO2 32 H (19-24) mmol/L ABG O2 Saturation 93.7 L (94-97) % Chloride (98-107) mmol/L Carbon Dioxide (22-30) mmol/L BUN (9-20) mg/dL Creatinine (0.66-1.25) mg/dL Glucose (74-99) mg/dL POC Glucose (mg/dL) 231 H 192 H (70-110) mg/dL 04/06/24 04/06/24 Range/Units 06:16 06:16 Neutrophils # 8.2 H (1.3-7.7) k/uL Lymphocytes # 0.4 L (1.0-4.8) k/uL ABG pCO2 (35-45) mmHg ABG pO2 (83-108) mmHg ABG HCO3 (21-25) mmol/L ABG Total CO2 (19-24) mmol/L ABG O2 Saturation (94-97) % Chloride 97 L (98-107) mmol/L Carbon Dioxide 34 H (22-30) mmol/L BUN 97 H (9-20) mg/dL Creatinine 1.60 H (0.66-1.25) mg/dL Glucose 169 H (74-99) mg/dL POC Glucose (mg/dL) (70-110) mg/dL Assessment and Plan Plan: Assessment: 1. Acute kidney injury secondary to ATN secondary to cardiorenal syndrome. No hydronephrosis noted on kidney ultrasound done in December 2023. Creatinine 2.9 on admission and is 1.6 today. 2. A-fib with RVR maintained on Cardizem drip. 3. Chronic kidney disease stage IIIa with baseline creatinine 1.2-1.4 secondary to nephrosclerosis. 4. Volume overload. Improving with diuresis. 5. Hyperphosphatemia secondary to acute kidney injury. Phosphorus level 7.0 dated April 05, 2024. 6. Morbid obesity. 7. Acute hypoxic respiratory failure. Plan: Maintain IV Lasix. Continue to monitor renal function and urine output. Repeat labs in the morning. Check UA.
[2024-04-06] MEDS: ATORVASTATIN 10 MG TAB PO SCH (09:37)
[2024-04-06] MEDS: SERTRALINE 50 MG TAB PO SCH (09:37)
[2024-04-06] MEDS: METOPROLOL SUCCINATE (ER) 100 MG TAB.ER.24H PO SCH (09:37)
[2024-04-06] MEDS: FINASTERIDE 5 MG TAB PO SCH (09:38)
--- NOTE | 2024-04-06 11:03 | P.CRDCN ---
History of Present Illness Consult date: 04/06/24 History of present illness: HISTORY OF PRESENTING ILLNESS 58-year-old male with past medical history of morbid obesity, HFpEF, atrial fibrillation, hypertension, dyslipidemia, CKD, COPD with FEV1 of only 22%, known to Dr. Dickerson outpatient. This time he presented to the hospital because of increased worsening shortness of breath, palpitations and increased shakiness. On admission he was noticed to be in atrial fibrillation with RVR for which cardiology was consulted. Prior cardiac testing Echocardiogram November 2023, EF 60%, severe LA dilatation Lexiscan July 2022, negative for reversible ischemia REVIEW OF SYSTEMS 14 point review of system is negative except what is mentioned above in HPI. PHYSICAL EXAMINATION Vital signs reviewed. Head: Normocephalic. Eyes: Sclerae nonicteric. Neck: Brisk carotid upstroke, difficult to assess jugular venous distention due to thick neck Lungs: Diminished breath sounds, mild wheezing audible in bilateral lung gimenez Heart: Irregularly irregular, no significant murmurs appreciated Abdomen: Soft nontender, positive bowel sounds. Extremities: Chronic lower extremity swelling with chronic skin changes and venous ulcers Neuro: Alert, oritented, no focal deficits. Detailed neuro exam was not performed. ASSESSMENT Acute hypoxic and hypercapnic respiratory failure A-fib RVR, persistent Advanced COPD, in exacerbation DEBRA on CKD Hypertension Hyperlipidemia Morbid obesity Chronic venous insufficiency PLAN Discontinue Cardizem drip. Give 1 dose of Cardizem CD 120 mg today. Increase Cardizem CD to 180 mg from tomorrow, continue metoprolol 100 mg Okay with IV Lasix 60 mg twice daily, renal function is improving Hold SGLT2 and Aldactone because of DEBRA Wanted to offer him rhythm control but is not a candidate of flecainide because of right bundle branch block. Will wait and offer him rate control strategy before doing amiodarone. BiPAP as needed No need for repeating echocardiogram on this admission. Jason Randolph MD, FACC, RPVI Thank you for allowing [facility] to participate in this patient's care. Feel free to reach out in case of any followup questions. 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 History of Any Multi-Drug Resistant Organisms: MRSA Date of last positivie culture/infection: 11/15/22 MDRO Source:: Left Leg Past Surgical History: Hernia Repair, Joint Replacement, Orthopedic Surgery Additional Past Surgical History / Comment(s): RT ARMAND, rt foot SX, Past Anesthesia/Blood Transfusion Reactions: No Reported Reaction Past Psychological History: Depression Smoking Status: Former smoker Past Alcohol Use History: None Reported Additional Past Alcohol Use History / Comment(s): QUIT SMOKING 2021 Past Drug Use History: None Reported - Past Family History Mother Family Medical History: No Reported History Medications and Allergies Home Medications Medication Instructions Recorded Confirmed Type Losartan [Cozaar] 25 mg PO HS 07/09/22 04/04/24 History hydrOXYzine pamoate [Vistaril] 50 mg PO HS PRN 07/09/22 04/04/24 History Atorvastatin [Lipitor] 10 mg PO DAILY 08/01/22 04/04/24 History Dapagliflozin Propanediol [Farxiga] 10 mg PO DAILY 30 Days #30 tab 09/10/22 04/04/24 Rx Famotidine [Pepcid] 20 mg PO BID #60 tab 09/10/22 04/04/24 Rx Metoprolol Succinate (ER) [Toprol 100 mg PO DAILY 30 Days #30 tab 09/10/22 04/04/24 Rx XL] busPIRone HCl [Buspar] 5 mg PO TID 30 Days #90 tab 09/10/22 04/04/24 Rx traMADol HCl [Ultram] 50 mg PO Q6H PRN #4 tab 01/11/23 04/04/24 Rx Apixaban [Eliquis] 5 mg PO BID 12/12/23 04/04/24 History Finasteride [Proscar] 5 mg PO DAILY 12/12/23 04/04/24 History QUEtiapine [SEROquel] 50 mg PO HS 12/12/23 04/04/24 History Sertraline [Zoloft] 50 mg PO DAILY 12/12/23 04/04/24 History Acetaminophen-Codeine 300-30mg 1 tab PO Q6H PRN 04/04/24 04/04/24 History [Tylenol w/codeine #3] Albuterol Sulfate [Ventolin HFA] 1 puff INHALATION RT-BID 04/04/24 04/04/24 History Cephalexin [Keflex] 500 mg PO Q12HR 04/04/24 04/04/24 History Furosemide [Lasix] 40 mg PO DAILY 04/04/24 04/04/24 History Pregabalin [Lyrica] 150 mg PO Q8H PRN 04/04/24 04/04/24 History Spironolactone [Aldactone] 25 mg PO DAILY 04/04/24 04/04/24 History dilTIAZem HCL [dilTIAZem HCL 24Hr 120 mg PO DAILY 04/04/24 04/04/24 History ER (CD)] Allergies Allergy/AdvReac Type Severity Reaction Status Date / Time No Known Allergies Allergy Verified 04/04/24 20:03 Physical Exam Vitals: Vital Signs Temp Pulse Pulse Resp BP Pulse Ox FiO2 04/06/24 09:31 98.0 F 121 H 18 133/90 95 50 04/06/24 09:04 50 04/06/24 04:34 50 04/06/24 03:39 97.9 F 124 H 18 109/55 96 50 04/06/24 00:14 50 04/06/24 00:00 97.9 F 107 H 19 118/52 96 50 04/05/24 20:00 98.1 F 87 18 99/53 93 L 04/05/24 16:38 94 04/05/24 16:29 96 50 04/05/24 16:00 105 H 20 135/68 94 L 50 04/05/24 12:13 98 04/05/24 12:00 96 93 19 115/64 93 L 50 04/05/24 11:59 50 Intake and Output 04/05/24 04/06/24 04/06/24 22:59 06:59 14:59 Intake Total 240 Output Total 1800 3050 900 Balance -1800 -3050 -660 Intake: Oral 240 Output: Urine 1800 3050 900 Uretheral (Cisneros) 1100 Other: Voiding Method Indwelling Catheter Indwelling Catheter Weight 151.6 kg Results 04/06/24 06:16 04/06/24 06:16 Cardiac Enzymes 04/06/24 Range/Units 06:16 AST 19 (17-59) U/L CBC 04/06/24 Range/Units 06:16 WBC 9.0 (3.8-10.6) k/uL RBC 5.12 (4.30-5.90) m/uL Hgb 15.1 (13.0-17.5) gm/dL Hct 45.4 (39.0-53.0) % Plt Count 206 (150-450) k/uL Comprehensive Metabolic Panel 04/06/24 Range/Units 06:16 Sodium 137 (137-145) mmol/L Potassium 4.4 (3.5-5.1) mmol/L Chloride 97 L (98-107) mmol/L Carbon Dioxide 34 H (22-30) mmol/L BUN 97 H (9-20) mg/dL Creatinine 1.60 H (0.66-1.25) mg/dL Glucose 169 H (74-99) mg/dL Calcium 8.6 (8.4-10.2) mg/dL AST 19 (17-59) U/L ALT 18 (4-49) U/L Alkaline Phosphatase 88 (38-126) U/L Total Protein 6.7 (6.3-8.2) g/dL Albumin 3.8 (3.5-5.0) g/dL Current Medications Generic Name Dose Route Start Last Admin Trade Name Freq PRN Reason Stop Dose Admin Acetaminophen/Codeine Phosphate 1 each 04/05/24 09:38 Acetaminophen-Codeine 300-30mg Tab PO Q6H PRN Pain Albuterol/Ipratropium 3 ml 04/05/24 08:00 04/06/24 09:03 Ipratropium-Albuterol 3 Ml Neb INHALATION 3 ml RT-QID OBI Administration Albuterol/Ipratropium 3 ml 04/04/24 21:35 Ipratropium-Albuterol 3 Ml Neb INHALATION RT-Q2H PRN Shortness Of Breath Or Wheezing Apixaban 5 mg 04/05/24 21:00 04/06/24 09:37 Apixaban 5 Mg Tab PO 5 mg BID OBI Administration Protocol Atorvastatin Calcium 10 mg 04/06/24 09:00 04/06/24 09:37 Atorvastatin 10 Mg Tab PO 10 mg DAILY OBI Administration Budesonide/Formoterol Fumarate 2 puff 04/05/24 20:00 04/06/24 09:03 Symbicort 160-4.5 Mcg Inhaler INHALATION Not Given RT-BID OBI Buspirone HCl 5 mg 04/05/24 16:00 04/06/24 09:37 Buspirone Hcl 5 Mg Tab PO 5 mg TID OBI Administration Dextrose/Water 25 ml 04/05/24 20:47 Dextrose 50% Syringe 50 Ml IVP PER PROTOCOL PRN Hypoglycemia Protocol Dextrose/Water 50 ml 04/05/24 20:47 Dextrose 50% Syringe 50 Ml IVP PER PROTOCOL PRN Hypoglycemia Protocol Diltiazem HCl 180 mg 04/07/24 09:00 Diltiazem Cd 180 Mg Cap.Er.24h PO DAILY OBI Finasteride 5 mg 04/06/24 09:00 04/06/24 09:38 Finasteride 5 Mg Tab PO 5 mg DAILY OBI Administration Furosemide 60 mg 04/05/24 09:00 04/06/24 09:37 Furosemide 10 Mg/Ml 10 Ml Vial IV 60 mg Q12HR OBI Administration Diltiazem HCl 125 mg/ Sodium 125 mls @ 5 mls/hr 04/06/24 03:15 04/06/24 03:32 Chloride IV 5 mg/hr .Q24H OBI 5 mls/hr Administration 5 MG/HR Insulin Aspart 0 unit 04/05/24 21:00 04/06/24 06:09 Insulin Aspart (Novolog) 100 Unit/Ml Vial SQ 2 unit ACHS OBI Administration Protocol Lorazepam 1 mg 04/04/24 20:43 04/05/24 22:58 Lorazepam 2 Mg/Ml Inj IV 1 mg Q6HR PRN Administration Anxiety Methylprednisolone Sodium Succinate 60 mg 04/05/24 00:00 04/06/24 06:09 Methylprednisolone Sod Succi 125 Mg/2 Ml Vial IV 60 mg Q6HR OBI Administration Metoprolol Succinate 100 mg 04/06/24 09:00 04/06/24 09:37 Metoprolol Succinate (Er) 100 Mg Tab.Er.24h PO 100 mg DAILY OBI Administration Morphine Sulfate 4 mg 04/04/24 20:37 Morphine Sulfate 4 Mg/Ml Syringe IV Q4HR PRN Severe Pain (Scale 7 to 10) Naloxone HCl 0.2 mg 04/04/24 20:37 Naloxone 0.4 Mg/Ml 1 Ml Vial IV Q2M PRN Opioid Reversal Ondansetron HCl 4 mg 04/04/24 20:37 Ondansetron 4 Mg/2 Ml Vial IVP Q8HR PRN Nausea And Vomiting Pantoprazole Sodium 40 mg 04/05/24 09:00 04/06/24 09:38 Pantoprazole 40 Mg/10 Ml Vial IV 40 mg DAILY OBI Administration Quetiapine Fumarate 50 mg 04/05/24 21:00 04/05/24 21:30 Quetiapine 50 Mg Tab PO 50 mg HS OBI Administration Sertraline HCl 50 mg 04/06/24 09:00 04/06/24 09:37 Sertraline 50 Mg Tab PO 50 mg DAILY OBI Administration Intake and Output 04/05/24 04/06/24 04/06/24 22:59 06:59 14:59 Intake Total 240 Output Total 1800 3050 900 Balance -1800 -3050 -660 Intake: Oral 240 Output: Urine 1800 3050 900 Uretheral (Cisneros) 1100 Other: Voiding Method Indwelling Catheter Indwelling Catheter Weight 151.6 kg 04/06/24 06:16 04/06/24 06:16
[2024-04-06 11:23] LABS: Glucose,Whole Blood 456 mg/dL (70-110)
[2024-04-06 11:25] LABS: Glucose,Whole Blood 386 mg/dL (70-110)
[2024-04-06] MEDS: DILTIAZEM CD 120 MG CAP.ER.24H PO STA (11:33)
--- NOTE | 2024-04-06 12:35 | P.PN ---
Subjective Progress Note Date: 04/06/24 patient is 58-year-old gentleman past medical history significant for congestive heart failure, atrial fibrillation, hypertension, hyperlipidemia, chronic kidney disease, COPD, and morbid obesity who presented the ER because of generalized debility and increasing weakness. Patient stated that he has been feeling like this for the last few weeks. Patient has been complaining of shortness of breath at rest as on exertion. Patient states that he is unable to get around. Denies any chest pain. There is no complaint of palpitations. Patient also complained of increased shakiness and tremors. Denies any fever or chills. There is no complaint of chest pain. There is no complaint orthopnea or PND. Because of the symptoms, patient presented to the ER Initial lab work done in the ER showed WBC 1.1, hemoglobin 15.6, platelet count 240, INR 1, sodium 133, potassium 5.6, chloride 96, BUN 119, creatinine 2.94 glucose 88, calcium 7.7, magnesium 2.6, bilirubin 1, troponin 0.017, proBNP 13,300 EKG done in the ER showed heart rate of 78, irregular rhythm, no ST segment elevation or depression seen, T-wave inversions seen in leads II, III and aVF. V1 to V4. Chest x-ray done in the ER showed mild bibasilar infiltrates, marked cardiomegaly CT head done showed no acute intracranial process CT cervical spine done showed no evidence of any cervical spine pathology X-ray pelvis does not show any evidence of fracture Patient admitted to internal medicine service 04/06. Patient seen and examined. Currently on BiPAP with a 50% FiO2. He is complaining of being short of breath on exertion. Denies any cough. Currently in A-fib, rate poorly controlled. Currently on Cardizem drip. REVIEW OF SYSTEMS: CONSTITUTIONAL: No fever, no malaise,. CARDIOVASCULAR: No chest pain, no palpitations, no syncope. PULMONARY: As mentioned above GASTROINTESTINAL: No diarrhea, no nausea, no vomiting, no abdominal pain. NEUROLOGICAL: No headaches, no weakness, PHYSICAL EXAMINATION: GENERAL: The patient is alert and oriented x3, not in any acute distress. Well developed, well nourished. HEENT: Pupils are round and equally reacting to light. EOMI. No scleral icterus. No conjunctival pallor. Normocephalic, atraumatic. No pharyngeal erythema. No thyromegaly. CARDIOVASCULAR: S1 and S2 present. No murmurs, rubs, or gallops. PULMONARY: Diminished breath sound at the bases bilaterally no wheezing or crackles. ABDOMEN: Soft, nontender, nondistended, normoactive bowel sounds. No palpable organomegaly. MUSCULOSKELETAL: No joint swelling or deformity. EXTREMITIES: No cyanosis, clubbing, or pedal edema. NEUROLOGICAL: Gross neurological examination did not reveal any focal deficits. SKIN: No rashes. Assessment and plan Acute hypoxic respiratory failure Acute kidney injury Hyperkalemia Hyponatremia Acute on chronic heart failure with preserved EF, 60 to 65% Persistent atrial fibrillation Hyperkalemia Hypertension Hyperlipidemia Chronic kidney disease COPD Morbid obesity: BMI 48.7 Obstructive sleep apnea, noncompliant with CPAP outpatient Monitor vital signs Monitor CBC Monitor CMP Continue telemetry monitoring Continue oxygen supplementation Continue BiPAP Continue breathing treatment strict I's and O's, daily weights Avoid nephrotoxic agents Continue Cardizem drip Continue Eliquis Continue IV Lasix 60 mg twice a day Order ultrasound kidneys Nephrology following Cardiology following Pulmonary following Labs and medication were reviewed.. Continue same treatment. Continue with symptomatic treatment. Resume home medication. Monitor labs and vitals. DVT and GI prophylaxis. Further recommendations as per clinical course of the patient Dictation was produced using [employer] dictation software. please excuse any grammatical, word or spelling errors. Objective - Vital Signs Vital signs: Vital Signs Temp 98.0 F 04/06/24 09:31 Pulse 121 H 04/06/24 09:31 Resp 18 04/06/24 09:31 BP 133/90 04/06/24 09:31 Pulse Ox 95 04/06/24 09:31 FiO2 50 04/06/24 09:31 Intake & Output 04/05/24 04/06/24 04/06/24 18:59 06:59 18:59 Intake Total 240 Output Total 7900 3050 Balance -7660 -3050 Weight 151.6 kg Intake: Oral 240 Output: Urine 7900 3050 Uretheral (Cisneros) 2200 Other: Voiding Method External Catheter Indwelling Catheter - Labs CBC & Chem 7: 04/06/24 06:16 04/06/24 06:16 Labs: Abnormal Lab Results - Last 24 Hours (Table) 04/05/24 04/05/24 04/06/24 Range/Units 12:41 20:13 05:54 Neutrophils # (1.3-7.7) k/uL Lymphocytes # (1.0-4.8) k/uL ABG pCO2 55 H (35-45) mmHg ABG pO2 68 L (83-108) mmHg ABG HCO3 31 H (21-25) mmol/L ABG Total CO2 32 H (19-24) mmol/L ABG O2 Saturation 93.7 L (94-97) % Chloride (98-107) mmol/L Carbon Dioxide (22-30) mmol/L BUN (9-20) mg/dL Creatinine (0.66-1.25) mg/dL Glucose (74-99) mg/dL POC Glucose (mg/dL) 231 H 192 H (70-110) mg/dL 04/06/24 04/06/24 Range/Units 06:16 06:16 Neutrophils # 8.2 H (1.3-7.7) k/uL Lymphocytes # 0.4 L (1.0-4.8) k/uL ABG pCO2 (35-45) mmHg ABG pO2 (83-108) mmHg ABG HCO3 (21-25) mmol/L ABG Total CO2 (19-24) mmol/L ABG O2 Saturation (94-97) % Chloride 97 L (98-107) mmol/L Carbon Dioxide 34 H (22-30) mmol/L BUN 97 H (9-20) mg/dL Creatinine 1.60 H (0.66-1.25) mg/dL Glucose 169 H (74-99) mg/dL POC Glucose (mg/dL) (70-110) mg/dL
--- NOTE | 2024-04-06 14:15 | P.PN ---
Subjective Progress Note Date: 04/06/24 Principal diagnosis: Shortness of breath. This is a 58-year-old white male with morbid obesity, chronic diastolic congestive heart failure, chronic obstructive pulmonary disease, chronic kidney disease, familiar to my service from previous admissions, patient presented to the ER with few days history of increased shortness of breath, weakness, generalized medical debility. No chest pain, no fever, no chills, no hemoptysis, workup in the ER included CBC that showed WBC count of 7.1 hemoglobin 15.6, abnormal potassium of 5.6 abnormal renal profile with a BUN of 119 creatinine 2.94 and abnormal BNP level of 13,300. On his initial arrival, patient was in moderate respiratory distress he was placed on BiPAP 14/6/50%, when I saw the patient I recommended an ABG that showed a pO2 of 68 pCO2 55 pH of 7.35 and this was on BiPAP. Chest x-ray showed evidence of mild interstitial edema and the patient is now on Lasix 60 mg IV push twice daily. Patient is on bronchodilators he is also on methylprednisolone 60 mg IV push every 6 hours. Progress note dated April 06, 2024. 58-year-old male seen today in room 364. He was seen in consultation yesterday. The patient has a history of chronic diastolic CHF, and chronic obstructive pulmonary disease among other things. Currently he is on 6 L nasal cannula. No IV fluids. He has a BiPAP device in the room, with settings of 14/6, and 50%. Clinically, the patient states that he starting to feel a bit better. His chest x-ray revealed mild interstitial edema. He was placed on Lasix. He is also getting bronchodilators and corticosteroids. Current laboratory data includes a completely normal CBC. Sodium 137, potassium 4.4, chlorides 97, CO2 34, BUN 97, creatinine 1.60. Glucose is 386. Objective - Vital Signs Vital signs: Vital Signs Temp 98.0 F 04/06/24 09:31 Pulse 124 H 04/06/24 12:05 Resp 20 04/06/24 11:32 BP 125/85 04/06/24 11:32 Pulse Ox 95 04/06/24 09:31 FiO2 50 04/06/24 09:31 Intake & Output 04/05/24 04/06/24 04/06/24 18:59 06:59 18:59 Intake Total 240 360 Output Total 7900 3050 900 Balance -7660 -3050 -540 Weight 151.6 kg Intake: Oral 240 360 Output: Urine 7900 3050 900 Uretheral (Cisneros) 2200 Other: Voiding Method External Catheter Indwelling Catheter Indwelling Catheter - Exam No acute distress, oriented 3. No audible wheezing or use of accessory muscles. Currently on 6 L nasal cannula. HEENT examination is grossly unremarkable. Mucous membranes are moist. No oral lesions. Neck supple. Full range of motion. No adenopathy thyromegaly or neck vein distention. Cardiovascular examination reveals regular rhythm rate. S1-S2 normal. No S3 or S4. No discernible murmur noted. Lungs reveal diminished bilateral breath sounds. Minimal crackles and rhonchi noted. Abdomen soft bowel sounds are heard. No masses or tenderness. Extremities reveal 3+ bilateral lower extremity pitting edema. Skin reveals multiple superficial venous stasis ulcers. Neurologic examination is brief but nonfocal. - Labs CBC & Chem 7: 04/06/24 06:16 04/06/24 06:16 Labs: Abnormal Lab Results - Last 24 Hours (Table) 04/05/24 04/06/24 04/06/24 Range/Units 20:13 05:54 06:16 Neutrophils # (1.3-7.7) k/uL Lymphocytes # (1.0-4.8) k/uL Chloride (98-107) mmol/L Carbon Dioxide (22-30) mmol/L BUN (9-20) mg/dL Creatinine (0.66-1.25) mg/dL Glucose (74-99) mg/dL POC Glucose (mg/dL) 231 H 192 H (70-110) mg/dL Hemoglobin A1c 6.2 H (<=6.0) % 04/06/24 04/06/24 04/06/24 Range/Units 06:16 06:16 11:21 Neutrophils # 8.2 H (1.3-7.7) k/uL Lymphocytes # 0.4 L (1.0-4.8) k/uL Chloride 97 L (98-107) mmol/L Carbon Dioxide 34 H (22-30) mmol/L BUN 97 H (9-20) mg/dL Creatinine 1.60 H (0.66-1.25) mg/dL Glucose 169 H (74-99) mg/dL POC Glucose (mg/dL) 456 H (70-110) mg/dL Hemoglobin A1c (<=6.0) % 04/06/24 Range/Units 11:23 Neutrophils # (1.3-7.7) k/uL Lymphocytes # (1.0-4.8) k/uL Chloride (98-107) mmol/L Carbon Dioxide (22-30) mmol/L BUN (9-20) mg/dL Creatinine (0.66-1.25) mg/dL Glucose (74-99) mg/dL POC Glucose (mg/dL) 386 H (70-110) mg/dL Hemoglobin A1c (<=6.0) % Assessment and Plan Assessment: Acute on chronic hypoxemic and hypercapnic respiratory failure, secondary to keisha stolic CHF exacerbation. Very severe COPD, with an FEV1 that is 22% of predicted. Obstructive sleep apnea syndrome, patient noncompliant with noninvasive positive airway pressure device. Morbid obesity with a BMI of 48.7 kg/m. Acute on chronic kidney disease. Hyperkalemia. Chronic lower extremity edema, with multiple venous stasis ulcers. History of hypertension. History of dyslipidemia. Former tobacco dependence. Plan: Plan dated April 06, 2024. The patient continues on nasal O2 at 6 L. BiPAP device is in the room with settings of 15/6 and 50%. The patient is not receiving any IV fluids. We will continue to follow make recommendations along the way. The patient continues with IV Lasix, bronchodilators, and factor Xa inhibitor. We will continue to follow make recommendations. Prognosis is poor. Labs, x-rays, and all medications have been reviewed. Time with Patient: Less than 30
[2024-04-06 15:52] LABS: Appearance,Urine Clear (Clear); Bacteria,Urine Rare /hpf; Bilirubin,Urine Negative (Negative); Blood,Urine Small (Negative); Color,Urine Colorless; Glucose,Urine (UA) 1+ (Negative); Ketones,Urine Negative (Negative); Leukocyte Esterase,Urine Negative (Negative); Nitrite,Urine Negative (Negative); Protein,Urine Negative (Negative); RBC,Urine 2 /hpf (0-5); Specific Gravity,Urine 1.012 (1.001-1.035); Urobilinogen,Urine <2.0 mg/dL (<2.0); WBC,Urine 1 /hpf (0-5)
[2024-04-06 16:27] LABS: Glucose,Whole Blood 145 mg/dL (70-110)
[2024-04-06 20:33] LABS: Glucose,Whole Blood 400 mg/dL (70-110)
[2024-04-06] MEDS: Acetaminophen-Codeine 300-30mg TAB PO PRN (22:53)
[2024-04-07 06:01] LABS: Glucose,Whole Blood 215 mg/dL (70-110)
[2024-04-07 06:55] LABS: ALT 19 U/L (4-49); AST 20 U/L (17-59); African American GFR (CKD) 58 (>60 ml/min/1.73 sqM); Alkaline Phosphatase 93 U/L (38-126); Anion Gap 3 mmol/L; Blood Urea Nitrogen 96 mg/dL (9-20); Calcium 9.1 mg/dL (8.4-10.2); Carbon Dioxide 36 mmol/L (22-30); Chloride 98 mmol/L (98-107); Glucose 188 mg/dL (74-99); Magnesium 2.1 mg/dL (1.6-2.3); Non-African American GFR(CKD) 50 (>60 ml/min/1.73 sqM); Potassium 3.8 mmol/L (3.5-5.1); Sodium 137 mmol/L (137-145); Total Protein 6.8 g/dL (6.3-8.2)
[2024-04-07 06:56] LABS: Basophils % (A) 0 %; Eosinophils % (A) 0 %; HCT 48.2 % (39.0-53.0); HGB 16.3 gm/dL (13.0-17.5); Lymphocytes # (A) 0.5 k/uL (1.0-4.8); Lymphocytes % (A) 4 %; MCH 29.4 pg (25.0-35.0); MCHC 33.9 g/dL (31.0-37.0); MCV 86.9 fL (80.0-100.0); Mean Platelet Volume 8.8; Monocytes # (A) 0.4 k/uL (0-1.0); Monocytes % (A) 4 %; Neutrophils # (A) 9.7 k/uL (1.3-7.7); Neutrophils % (A) 92 %; Platelet Count 192 k/uL (150-450); RBC 5.55 m/uL (4.30-5.90); RDW 15.6 % (11.5-15.5); WBC 10.6 k/uL (3.8-10.6)
--- NOTE | 2024-04-07 08:57 | P.PN ---
Subjective Patient is seen in follow-up for acute kidney injury on chronic kidney disease. Renal function improving. On IV Lasix. Currently on room air. No active complaints. Vital signs are stable. General: No acute distress. HEENT: Head exam is unremarkable. LUNGS: No audible rhonchi or wheezes. HEART: Rate and Rhythm are regular. ABDOMEN: Obese, no distention. EXTREMITITES: Trace edema. Objective - Vital Signs Vital signs: Vital Signs Temp 97.9 F 04/07/24 04:00 Pulse 63 04/07/24 04:00 Resp 18 04/07/24 04:00 BP 141/64 04/07/24 04:00 Pulse Ox 95 04/07/24 04:00 FiO2 50 04/07/24 04:00 Intake & Output 04/06/24 04/07/24 04/07/24 18:59 06:59 18:59 Intake Total 480 240 Output Total 2700 2000 Balance -2219 -1999 240 Weight 149.3 kg Intake: Oral 480 240 Output: Urine 2700 2000 Other: Voiding Method Indwelling Catheter Indwelling Catheter # Voids 0 - Labs CBC & Chem 7: 04/07/24 06:00 04/07/24 06:00 Labs: Abnormal Lab Results - Last 24 Hours (Table) 04/06/24 04/06/24 04/06/24 Range/Units 06:16 11:21 11:23 RDW (11.5-15.5) % Neutrophils # (1.3-7.7) k/uL Lymphocytes # (1.0-4.8) k/uL Carbon Dioxide (22-30) mmol/L BUN (9-20) mg/dL Creatinine (0.66-1.25) mg/dL Glucose (74-99) mg/dL POC Glucose (mg/dL) 456 H 386 H (70-110) mg/dL Hemoglobin A1c 6.2 H (<=6.0) % Urine Glucose (UA) (Negative) Urine Blood (Negative) Urine Bacteria (None) /hpf 04/06/24 04/06/24 04/06/24 Range/Units 15:40 16:11 20:31 RDW (11.5-15.5) % Neutrophils # (1.3-7.7) k/uL Lymphocytes # (1.0-4.8) k/uL Carbon Dioxide (22-30) mmol/L BUN (9-20) mg/dL Creatinine (0.66-1.25) mg/dL Glucose (74-99) mg/dL POC Glucose (mg/dL) 145 H 400 H (70-110) mg/dL Hemoglobin A1c (<=6.0) % Urine Glucose (UA) 1+ H (Negative) Urine Blood Small H (Negative) Urine Bacteria Rare H (None) /hpf 04/07/24 04/07/24 04/07/24 Range/Units 05:58 06:00 06:00 RDW 15.6 H (11.5-15.5) % Neutrophils # 9.7 H (1.3-7.7) k/uL Lymphocytes # 0.5 L (1.0-4.8) k/uL Carbon Dioxide 36 H (22-30) mmol/L BUN 96 H (9-20) mg/dL Creatinine 1.49 H (0.66-1.25) mg/dL Glucose 188 H (74-99) mg/dL POC Glucose (mg/dL) 215 H (70-110) mg/dL Hemoglobin A1c (<=6.0) % Urine Glucose (UA) (Negative) Urine Blood (Negative) Urine Bacteria (None) /hpf Assessment and Plan Plan: Assessment: 1. Acute kidney injury secondary to ATN secondary to cardiorenal syndrome. No hydronephrosis noted on kidney ultrasound done in December 2023. Creatinine 2.9 on admission and is 1.49 today. UA benign. 2. A-fib with RVR status post Cardizem drip. Now on oral Cardizem and metoprolol. 3. Chronic kidney disease stage IIIa with baseline creatinine 1.2-1.4 secondary to nephrosclerosis. 4. Volume overload. Improving with diuresis. 5. Hyperphosphatemia secondary to acute kidney injury. Phosphorus level 7.0 dated April 05, 2024. 6. Morbid obesity. 7. Acute hypoxic respiratory failure. Improved. 8. Acute on chronic diastolic CHF. Plan: Stop IV Lasix. Add torsemide 40 mg once daily. Add maintenance potassium supplementation. Low-salt diet and 1500 cc fluid restriction. Continue to monitor renal function and urine output. Repeat labs in the morning.
[2024-04-07] MEDS: DILTIAZEM CD 180 MG CAP.ER.24H PO SCH (09:06)
[2024-04-07] MEDS: TORSEMIDE 20 MG TAB PO SCH (09:06)
[2024-04-07] MEDS: POTASSIUM CHLORIDE ER 20 MEQ TAB.ER PO SCH (09:07)
[2024-04-07] MEDS: ALPRAZolam 0.25 MG TAB PO PRN (11:23)
[2024-04-07 12:04] LABS: Glucose,Whole Blood 210 mg/dL (70-110)
--- NOTE | 2024-04-07 12:40 | P.PN ---
Subjective Progress Note Date: 04/07/24 patient is 58-year-old gentleman past medical history significant for congestive heart failure, atrial fibrillation, hypertension, hyperlipidemia, chronic kidney disease, COPD, and morbid obesity who presented the ER because of generalized debility and increasing weakness. Patient stated that he has been feeling like this for the last few weeks. Patient has been complaining of shortness of breath at rest as on exertion. Patient states that he is unable to get around. Denies any chest pain. There is no complaint of palpitations. Patient also complained of increased shakiness and tremors. Denies any fever or chills. There is no complaint of chest pain. There is no complaint orthopnea or PND. Because of the symptoms, patient presented to the ER Initial lab work done in the ER showed WBC 1.1, hemoglobin 15.6, platelet count 240, INR 1, sodium 133, potassium 5.6, chloride 96, BUN 119, creatinine 2.94 glucose 88, calcium 7.7, magnesium 2.6, bilirubin 1, troponin 0.017, proBNP 13,300 EKG done in the ER showed heart rate of 78, irregular rhythm, no ST segment elevation or depression seen, T-wave inversions seen in leads II, III and aVF. V1 to V4. Chest x-ray done in the ER showed mild bibasilar infiltrates, marked cardiomegaly CT head done showed no acute intracranial process CT cervical spine done showed no evidence of any cervical spine pathology X-ray pelvis does not show any evidence of fracture Patient admitted to internal medicine service 04/06. Patient seen and examined. Currently on BiPAP with a 50% FiO2. He is complaining of being short of breath on exertion. Denies any cough. Currently in A-fib, rate poorly controlled. Currently on Cardizem drip. 04/07. Patient seen and examined. Currently on 4 L of oxygen. Patient is diuresing well. Patient is anxious today. REVIEW OF SYSTEMS: CONSTITUTIONAL: No fever, no malaise,. CARDIOVASCULAR: No chest pain, no palpitations, no syncope. PULMONARY: As mentioned above GASTROINTESTINAL: No diarrhea, no nausea, no vomiting, no abdominal pain. NEUROLOGICAL: No headaches, no weakness, PHYSICAL EXAMINATION: GENERAL: The patient is alert and oriented x3, not in any acute distress. Well developed, well nourished. HEENT: Pupils are round and equally reacting to light. EOMI. No scleral icterus. No conjunctival pallor. Normocephalic, atraumatic. No pharyngeal erythema. No thyromegaly. CARDIOVASCULAR: S1 and S2 present. No murmurs, rubs, or gallops. PULMONARY: Diminished breath sound at the bases bilaterally no wheezing or crackles. ABDOMEN: Soft, nontender, nondistended, normoactive bowel sounds. No palpable organomegaly. MUSCULOSKELETAL: No joint swelling or deformity. EXTREMITIES: No cyanosis, clubbing, or pedal edema. NEUROLOGICAL: Gross neurological examination did not reveal any focal deficits. SKIN: No rashes. Assessment and plan Acute hypoxic respiratory failure Acute kidney injury Hyperkalemia Hyponatremia Acute on chronic heart failure with preserved EF, 60 to 65% Persistent atrial fibrillation Hyperkalemia Hypertension Hyperlipidemia Chronic kidney disease COPD Morbid obesity: BMI 48.7 Obstructive sleep apnea, noncompliant with CPAP outpatient Monitor vital signs Monitor CBC Monitor CMP Continue telemetry monitoring Continue oxygen supplementation Continue BiPAP Continue breathing treatment strict I's and O's, daily weights Avoid nephrotoxic agents Continue oral Cardizem and Toprol Continue Eliquis IV Lasix stopped, switch to oral torsemide Nephrology following Cardiology following Pulmonary following Labs and medication were reviewed.. Continue same treatment. Continue with symptomatic treatment. Resume home medication. Monitor labs and vitals. DVT and GI prophylaxis. Further recommendations as per clinical course of the patient Dictation was produced using [employer] dictation software. please excuse any grammatical, word or spelling errors. Objective - Vital Signs Vital signs: Vital Signs Temp 97.5 F L 04/07/24 11:03 Pulse 132 H 04/07/24 12:08 Resp 21 04/07/24 11:03 BP 145/93 04/07/24 11:03 Pulse Ox 94 L 04/07/24 11:03 FiO2 50 04/07/24 04:00 Intake & Output 04/06/24 04/07/24 04/07/24 18:59 06:59 18:59 Intake Total 480 240 Output Total 2700 1999 Balance -2219 240 Weight 149.3 kg Intake: Oral 480 240 Output: Urine 2700 1999 Other: Voiding Method Indwelling Catheter Indwelling Catheter Indwelling Catheter # Voids 0 - Labs CBC & Chem 7: 04/07/24 06:00 04/07/24 06:00 Labs: Abnormal Lab Results - Last 24 Hours (Table) 04/06/24 04/06/24 04/06/24 Range/Units 15:40 16:11 20:31 RDW (11.5-15.5) % Neutrophils # (1.3-7.7) k/uL Lymphocytes # (1.0-4.8) k/uL Carbon Dioxide (22-30) mmol/L BUN (9-20) mg/dL Creatinine (0.66-1.25) mg/dL Glucose (74-99) mg/dL POC Glucose (mg/dL) 145 H 400 H (70-110) mg/dL Urine Glucose (UA) 1+ H (Negative) Urine Blood Small H (Negative) Urine Bacteria Rare H (None) /hpf 04/07/24 04/07/24 04/07/24 Range/Units 05:58 06:00 06:00 RDW 15.6 H (11.5-15.5) % Neutrophils # 9.7 H (1.3-7.7) k/uL Lymphocytes # 0.5 L (1.0-4.8) k/uL Carbon Dioxide 36 H (22-30) mmol/L BUN 96 H (9-20) mg/dL Creatinine 1.49 H (0.66-1.25) mg/dL Glucose 188 H (74-99) mg/dL POC Glucose (mg/dL) 215 H (70-110) mg/dL Urine Glucose (UA) (Negative) Urine Blood (Negative) Urine Bacteria (None) /hpf 04/07/24 Range/Units 12:00 RDW (11.5-15.5) % Neutrophils # (1.3-7.7) k/uL Lymphocytes # (1.0-4.8) k/uL Carbon Dioxide (22-30) mmol/L BUN (9-20) mg/dL Creatinine (0.66-1.25) mg/dL Glucose (74-99) mg/dL POC Glucose (mg/dL) 210 H (70-110) mg/dL Urine Glucose (UA) (Negative) Urine Blood (Negative) Urine Bacteria (None) /hpf
[2024-04-07] MEDS ORDERED: fentaNYL (PF) 50 MCG/ML 5 ML AMP IVP PRN (12:50)
[2024-04-07] MEDS ORDERED: BENZOCAINE SPRAY 1 CAN TOPICAL PRN (12:50)
[2024-04-07] MEDS ORDERED: MIDAZOLAM 2 MG/2 ML VIAL IV PRN (12:50)
--- NOTE | 2024-04-07 13:56 | P.PN ---
Subjective Progress Note Date: 04/07/24 Principal diagnosis: Shortness of breath. This is a 58-year-old white male with morbid obesity, chronic diastolic congestive heart failure, chronic obstructive pulmonary disease, chronic kidney disease, familiar to my service from previous admissions, patient presented to the ER with few days history of increased shortness of breath, weakness, generalized medical debility. No chest pain, no fever, no chills, no hemoptysis, workup in the ER included CBC that showed WBC count of 7.1 hemoglobin 15.6, abnormal potassium of 5.6 abnormal renal profile with a BUN of 119 creatinine 2.94 and abnormal BNP level of 13,300. On his initial arrival, patient was in moderate respiratory distress he was placed on BiPAP 14/6/50%, when I saw the patient I recommended an ABG that showed a pO2 of 68 pCO2 55 pH of 7.35 and this was on BiPAP. Chest x-ray showed evidence of mild interstitial edema and the patient is now on Lasix 60 mg IV push twice daily. Patient is on bronchodilators he is also on methylprednisolone 60 mg IV push every 6 hours. Progress note dated April 06, 2024. 58-year-old male seen today in room 364. He was seen in consultation yesterday. The patient has a history of chronic diastolic CHF, and chronic obstructive pulmonary disease among other things. Currently he is on 6 L nasal cannula. No IV fluids. He has a BiPAP device in the room, with settings of 14/6, and 50%. Clinically, the patient states that he starting to feel a bit better. His chest x-ray revealed mild interstitial edema. He was placed on Lasix. He is also getting bronchodilators and corticosteroids. Current laboratory data includes a completely normal CBC. Sodium 137, potassium 4.4, chlorides 97, CO2 34, BUN 97, creatinine 1.60. Glucose is 386. Progress note dated April 07, 2024. 58-year-old male seen in room 364. Currently, the patient is not receiving any IV fluids. The patient is currently on 4 L nasal cannula. He is walking around the room. He did use both BiPAP and nasal O2 last night. He used BiPAP for about 4 hours. His settings were 14/6, and 50%. Current labs include a white count 10.6, hemoglobin 16.3, hematocrit 48.2, and a normal platelet count. Sodium 137, potassium 3.8, chlorides 98, CO2 36, BUN 96, creatinine 1.49. Glucose is 210. Objective - Vital Signs Vital signs: Vital Signs Temp 97.5 F L 04/07/24 11:03 Pulse 132 H 04/07/24 12:08 Resp 21 04/07/24 11:03 BP 145/93 04/07/24 11:03 Pulse Ox 94 L 04/07/24 11:03 FiO2 50 04/07/24 04:00 Intake & Output 04/06/24 04/07/24 04/07/24 18:59 06:59 18:59 Intake Total 480 240 Output Total 2700 1999 Balance -2219 -1999 240 Weight 149.3 kg Intake: Oral 480 240 Output: Urine 2700 1999 Other: Voiding Method Indwelling Catheter Indwelling Catheter Indwelling Catheter # Voids 0 - Exam No acute distress, oriented 3. No audible wheezing or use of accessory muscles. Currently on 4 L nasal cannula. HEENT examination is grossly unremarkable. Mucous membranes are moist. No oral lesions. Neck supple. Full range of motion. No adenopathy thyromegaly or neck vein distention. Cardiovascular examination reveals regular rhythm rate. S1-S2 normal. No S3 or S4. No discernible murmur noted. Lungs reveal diminished bilateral breath sounds. Minimal crackles and rhonchi noted. Abdomen soft bowel sounds are heard. No masses or tenderness. Extremities reveal 3+ bilateral lower extremity pitting edema. Skin reveals multiple superficial venous stasis ulcers. Neurologic examination is brief but nonfocal. - Labs CBC & Chem 7: 04/07/24 06:00 04/07/24 06:00 Labs: Abnormal Lab Results - Last 24 Hours (Table) 04/06/24 04/06/24 04/06/24 Range/Units 15:40 16:11 20:31 RDW (11.5-15.5) % Neutrophils # (1.3-7.7) k/uL Lymphocytes # (1.0-4.8) k/uL Carbon Dioxide (22-30) mmol/L BUN (9-20) mg/dL Creatinine (0.66-1.25) mg/dL Glucose (74-99) mg/dL POC Glucose (mg/dL) 145 H 400 H (70-110) mg/dL Urine Glucose (UA) 1+ H (Negative) Urine Blood Small H (Negative) Urine Bacteria Rare H (None) /hpf 04/07/24 04/07/24 04/07/24 Range/Units 05:58 06:00 06:00 RDW 15.6 H (11.5-15.5) % Neutrophils # 9.7 H (1.3-7.7) k/uL Lymphocytes # 0.5 L (1.0-4.8) k/uL Carbon Dioxide 36 H (22-30) mmol/L BUN 96 H (9-20) mg/dL Creatinine 1.49 H (0.66-1.25) mg/dL Glucose 188 H (74-99) mg/dL POC Glucose (mg/dL) 215 H (70-110) mg/dL Urine Glucose (UA) (Negative) Urine Blood (Negative) Urine Bacteria (None) /hpf 04/07/24 Range/Units 12:00 RDW (11.5-15.5) % Neutrophils # (1.3-7.7) k/uL Lymphocytes # (1.0-4.8) k/uL Carbon Dioxide (22-30) mmol/L BUN (9-20) mg/dL Creatinine (0.66-1.25) mg/dL Glucose (74-99) mg/dL POC Glucose (mg/dL) 210 H (70-110) mg/dL Urine Glucose (UA) (Negative) Urine Blood (Negative) Urine Bacteria (None) /hpf Assessment and Plan Assessment: Acute on chronic hypoxemic and hypercapnic respiratory failure, secondary to diastolic CHF exacerbation. Very severe COPD, with an FEV1 that is 22% of predicted. Obstructive sleep apnea syndrome, patient noncompliant with noninvasive positive airway pressure device. Morbid obesity with a BMI of 48.7 kg/m. Acute on chronic kidney disease. Hyperkalemia. Chronic lower extremity edema, with multiple venous stasis ulcers. History of hypertension. History of dyslipidemia. Former tobacco dependence. Plan: Plan dated April 06, 2024. The patient continues on nasal O2 at 6 L. BiPAP device is in the room with settings of 15/6 and 50%. The patient is not receiving any IV fluids. We will continue to follow make recommendations along the way. The patient continues with IV Lasix, bronchodilators, and factor Xa inhibitor. We will continue to fo llow make recommendations. Prognosis is poor. Labs, x-rays, and all medications have been reviewed. Plan dated April 07, 2024. The patient is doing much better today. His oxygen requirements is gone from 6 L, down to 4. He did use BiPAP last night for about 4 hours, with settings of 14/6, 50%. Labs, x-rays, and all medications are reviewed. The patient was walking around the room without distress. There was no conversational dyspnea, audible wheezing, or use of accessory muscles. We will continue to follow. Prognosis is guarded. Time with Patient: Less than 30
[2024-04-07] MEDS: SPIRONOLACTONE 25 MG TAB PO SCH (14:15)
[2024-04-07] MEDS: DILTIAZEM CD 120 MG CAP.ER.24H PO STA (14:15)
[2024-04-07] MEDS: DAPAGLIFLOZIN PROPANEDIOL 10 MG TABLET PO SCH (14:15)
[2024-04-07 16:37] LABS: Glucose,Whole Blood 245 mg/dL (70-110)
--- NOTE | 2024-04-07 17:22 | P.PN ---
Subjective Progress Note Date: 04/07/24 HISTORY OF PRESENTING ILLNESS 58-year-old male with past medical history of morbid obesity, HFpEF, atrial fibrillation, hypertension, dyslipidemia, CKD, COPD with FEV1 of only 22%, known to Dr. Dickerson outpatient. This time he presented to the hospital because of increased worsening shortness of breath, palpitations and increased shakiness. On admission he was noticed to be in atrial fibrillation with RVR for which cardiology was consulted. Prior cardiac testing Echocardiogram November 2023, EF 60%, severe LA dilatation Lexiscan July 2022, negative for reversible ischemia April 07, 2024 WBC 10.6, hemoglobin 16, BUN 96, creatinine 1.49 Heart rate 150s, A-fib RVR, BP 131/85 Patient is still symptomatic with A-fib RVR. PHYSICAL EXAMINATION Vital signs reviewed. Head: Normocephalic. Eyes: Sclerae nonicteric. Neck: Brisk carotid upstroke, difficult to assess jugular venous distention due to thick neck Lungs: Diminished breath sounds, mild wheezing audible in bilateral lung gimenez Heart: Irregularly irregular, no significant murmurs appreciated Abdomen: Soft nontender, positive bowel sounds. Extremities: Chronic lower extremity swelling with chronic skin changes and venous ulcers Neuro: Alert, oritented, no focal deficits. Detailed neuro exam was not performed. ASSESSMENT Acute hypoxic and hypercapnic respiratory failure A-fib RVR, persistent Acute HFpEF exacerbation Advanced COPD, in exacerbation DEBRA on CKD Hypertension Hyperlipidemia Morbid obesity Chronic venous insufficiency Noncompliance Prior history of a flutter RVR with CTI ablation in 2021 PLAN Increase Cardizem to 240 mg daily. Continue metoprolol 100 mg twice daily Plan for JESS cardioversion tomorrow a.m. Hold his morning Cardizem and metoprolol before the cardioversion. Agree with switching diuretics to torsemide 40 mg daily. Add Aldactone 12.5 mg daily. At Farxiga 10 mg daily N.p.o. after midnight BiPAP as needed Objective - Vital Signs Vital signs: Vital Signs Temp 97.5 F L 04/07/24 11:03 Pulse 150 H 04/07/24 16:42 Resp 18 04/07/24 16:42 BP 131/85 04/07/24 16:42 Pulse Ox 94 L 04/07/24 16:42 FiO2 50 04/07/24 04:00 Intake & Output 04/06/24 04/07/24 04/07/24 18:59 06:59 18:59 Intake Total 480 240 Output Total 2701999 Balance -2219 240 Weight 149.3 kg Intake: Oral 480 240 Output: Urine 2699 1999 Other: Voiding Method Indwelling Catheter Indwelling Catheter Indwelling Catheter # Voids 0 - Labs CBC & Chem 7: 04/07/24 06:00 04/07/24 06:00 Labs: Abnormal Lab Results - Last 24 Hours (Table) 04/06/24 04/07/24 04/07/24 Range/Units 20:31 05:58 06:00 RDW (11.5-15.5) % Neutrophils # (1.3-7.7) k/uL Lymphocytes # (1.0-4.8) k/uL Carbon Dioxide 36 H (22-30) mmol/L BUN 96 H (9-20) mg/dL Creatinine 1.49 H (0.66-1.25) mg/dL Glucose 188 H (74-99) mg/dL POC Glucose (mg/dL) 400 H 215 H (70-110) mg/dL 04/07/24 04/07/24 04/07/24 Range/Units 06:00 12:00 16:35 RDW 15.6 H (11.5-15.5) % Neutrophils # 9.7 H (1.3-7.7) k/uL Lymphocytes # 0.5 L (1.0-4.8) k/uL Carbon Dioxide (22-30) mmol/L BUN (9-20) mg/dL Creatinine (0.66-1.25) mg/dL Glucose (74-99) mg/dL POC Glucose (mg/dL) 210 H 245 H (70-110) mg/dL
[2024-04-07 20:20] LABS: Glucose,Whole Blood 211 mg/dL (70-110)
[2024-04-08] MEDS: DILTIAZEM CD 240 MG CAP.ER.24H PO SCH (01:28)
[2024-04-08 06:19] LABS: Glucose,Whole Blood 238 mg/dL (70-110)
[2024-04-08 07:56] LABS: African American GFR (CKD) 43 (>60 ml/min/1.73 sqM); Anion Gap 8 mmol/L; Calcium 9.4 mg/dL (8.4-10.2); Carbon Dioxide 35 mmol/L (22-30); Chloride 94 mmol/L (98-107); Glucose 219 mg/dL (74-99); Magnesium 1.9 mg/dL (1.6-2.3); Non-African American GFR(CKD) 37 (>60 ml/min/1.73 sqM); Potassium 3.8 mmol/L (3.5-5.1); Sodium 137 mmol/L (137-145)
[2024-04-08 08:00] LABS: Blood Urea Nitrogen 105 mg/dL (9-20)
[2024-04-08] MEDS: MORPHINE SULFATE 4 MG/ML SYRINGE IV PRN (09:39)
[2024-04-08] MEDS ORDERED: MIDAZOLAM 2 MG/2 ML VIAL ONE (10:31)
[2024-04-08] MEDS ORDERED: KETAMINE HCL IN 0.9 % NACL 50 MG/5 ML SYRINGE ONE (10:31)
[2024-04-08] MEDS ORDERED: LIDOCAINE 1% INJ 10MG/ML (20 ML MDV) ONE (10:31)
[2024-04-08] MEDS ORDERED: PROPOFOL 10 MG/ML 20 ML VIAL IV ONE (10:31)
[2024-04-08] MEDS: IV FLUID CONTINUATION 1,000 ML IV ONE (10:35)
--- NOTE | 2024-04-08 11:13 | P.TEE ---
Date of Procedure: 04/08/24 Description of Procedure(s): Procedure performed: 1. Transesophageal Echocardiogram. Color-flow Doppler, pulse-wave Doppler, 2. Synchronized Cardioversion. 3. Bubble study Indications: Persistent atrial fibrillation Consent: I have discussed the risks, benefits and alternative therapies for the above-mentioned procedure. The patient has indicated understanding and acceptance of the risks of the procedure. Signed consent was obtained and was placed in the paper chart. Moderate conscious sedation: Moderate conscious sedation was administered by anesthesia, see separate report. Procedural Steps: Timeout was performed in usual fashion. Patient's heart rate, blood pressure, oxygen saturation and ECG were monitored. After achieving appropriate moderate conscious sedation, JESS JESS probe was advanced without difficulty and without any immediate complications to the esophagus. JESS study was performed with color flow doppler, pulsed wave doppler and continuous wave doppler. Agitated saline bubbles were injected to assess for any intra-atrial shunt. The probe was then removed. SYNCHRONIZED CARDIOVERSION After making sure that there is no evidence of intracardiac thrombus, pacer pads were placed and secured on patients chest and back. Synchronized cardioversion was perfromed using 200 J. [1] attempt. Sinus rhythm was confirmed with a 12 lead EKG. Patient tolerated the procedure well. Patient was transferred to the post procedure area in stable and satisfactory condition. Complications: none Blood loss: none FINDINGS Left Atrium: Severe LA dilatation. No evidence of mass or thrombus seen Left Atrial Appendage: No evidence of thrombus or mass seen in CASSY Inter atrial septum: Intact inter-atrial septum. No evidence of atrial septal defect or patent foramen ovale on color doppler. No evidence of [id number] intracardiac shunting noticed on bubble study. Left Ventricle: Normal global LV size and systolic function. Mild concentric LVH Right Atrium: Moderate RA dilatation Right Ventricle: Normal global RV size and systolic function Aortic Valve: Structurally normal Trileaflet, no significant calcification. No significant stenosis or regurgitation on color doppler assessment. Mitral Valve: Struturally normal. No evidence of prolapse. Moderate functional mitral regurgitation. Pulmonic Valve: No significant regurgitation or stenosis noticed. Tricuspid Valve: Mild to moderate tricuspid regurgitation. Ascending aorta, Aortic root and Aortic arch: Mild intimal thickening. Ascending aorta measured 3.8 cm Descending aorta: Mild intimal thickening. No pericardial effusion CONCLUSION: No evidence of thrombus in left atrial appendage or left atrium Severe left atrial dilatation, moderate RA dilatation Moderate mitral regurgitation, functional Preserved LV global systolic function with moderate concentric LVH Successful cardioversion 1 attempt 200 J Jason Randolph MD, RPVI, FACC Thank you for allowing [facility] to participate in this patient's care. Feel free to reach out in case of any followup questions.
[2024-04-08 11:53] LABS: Glucose,Whole Blood 242 mg/dL (70-110)
[2024-04-08] MEDS: AMIODARONE 200 MG TAB PO SCH (12:00)
--- NOTE | 2024-04-08 12:24 | P.PN ---
Subjective Progress Note Date: 04/08/24 Principal diagnosis: Shortness of breath. This is a 58-year-old white male with morbid obesity, chronic diastolic congestive heart failure, chronic obstructive pulmonary disease, chronic kidney disease, familiar to my service from previous admissions, patient presented to the ER with few days history of increased shortness of breath, weakness, generalized medical debility. No chest pain, no fever, no chills, no hemoptysis, workup in the ER included CBC that showed WBC count of 7.1 hemoglobin 15.6, abnormal potassium of 5.6 abnormal renal profile with a BUN of 119 creatinine 2.94 and abnormal BNP level of 13,300. On his initial arrival, patient was in moderate respiratory distress he was placed on BiPAP 14/6/50%, when I saw the patient I recommended an ABG that showed a pO2 of 68 pCO2 55 pH of 7.35 and this was on BiPAP. Chest x-ray showed evidence of mild interstitial edema and the patient is now on Lasix 60 mg IV push twice daily. Patient is on bronchodilators he is also on methylprednisolone 60 mg IV push every 6 hours. Progress note dated April 06, 2024. 58-year-old male seen today in room 364. He was seen in consultation yesterday. The patient has a history of chronic diastolic CHF, and chronic obstructive pulmonary disease among other things. Currently he is on 6 L nasal cannula. No IV fluids. He has a BiPAP device in the room, with settings of 14/6, and 50%. Clinically, the patient states that he starting to feel a bit better. His chest x-ray revealed mild interstitial edema. He was placed on Lasix. He is also getting bronchodilators and corticosteroids. Current laboratory data includes a completely normal CBC. Sodium 137, potassium 4.4, chlorides 97, CO2 34, BUN 97, creatinine 1.60. Glucose is 386. Progress note dated April 07, 2024. 58-year-old male seen in room 364. Currently, the patient is not receiving any IV fluids. The patient is currently on 4 L nasal cannula. He is walking around the room. He did use both BiPAP and nasal O2 last night. He used BiPAP for about 4 hours. His settings were 14/6, and 50%. Current labs include a white count 10.6, hemoglobin 16.3, hematocrit 48.2, and a normal platelet count. Sodium 137, potassium 3.8, chlorides 98, CO2 36, BUN 96, creatinine 1.49. Glucose is 210. Progress note dated April 08, 2024. 58-year-old male who is seen today in room 364. The patient was to have a transesophageal echocardiogram, and cardioversion, by cardiology today. He remains on 4 L of oxygen by nasal cannula. According to the nurses, the patient had a relatively uneventful night. Laboratory data includes a sodium 137, potassium 3.8, chlorides 94, CO2 35, BUN 105, creatinine 1.93. Glucose is 242. Calcium 9.4. Objective - Vital Signs Vital signs: Vital Signs Temp 98 F 04/08/24 10:59 Pulse 79 04/08/24 11:30 Resp 16 04/08/24 11:30 BP 145/72 04/08/24 11:30 Pulse Ox 94 L 04/08/24 11:30 FiO2 50 04/08/24 01:13 Intake & Output 04/07/24 04/08/24 04/08/24 18:59 06:59 18:59 Intake Total 240 240 500 Output Total 3200 700 Balance 240 -2960 -200 Weight 92 kg 150 kg Intake: IV 500 Oral 240 240 Output: Urine 3200 700 Other: Voiding Method Indwelling Catheter Indwelling Catheter Indwelling Catheter # Voids 3 # Bowel Movements 2 0 - Exam No acute distress, oriented 3. No audible wheezing or use of accessory muscles. Currently on 4 L nasal cannula. HEENT examination is grossly unremarkable. Mucous membranes are moist. No oral lesions. Neck supple. Full range of motion. No adenopathy thyromegaly or neck vein distention. Cardiovascular examination reveals an irregular rhythm and rate. S1-S2 normal. No S3 or S4. No discernible murmur noted. Lungs reveal diminished bilateral breath sounds. Minimal crackles and rhonchi noted. Abdomen soft bowel sounds are heard. No masses or tenderness. Extremities reveal 3+ bilateral lower extremity pitting edema. Skin reveals multiple superficial venous stasis ulcers. Neurologic examination is brief but nonfocal. - Labs CBC & Chem 7: 04/07/24 06:00 04/08/24 07:09 Labs: Abnormal Lab Results - Last 24 Hours (Table) 04/07/24 04/07/24 04/08/24 Range/Units 16:35 20:18 06:17 Chloride (98-107) mmol/L Carbon Dioxide (22-30) mmol/L BUN (9-20) mg/dL Creatinine (0.66-1.25) mg/dL Glucose (74-99) mg/dL POC Glucose (mg/dL) 245 H 211 H 238 H (70-110) mg/dL 04/08/24 04/08/24 Range/Units 07:09 11:52 Chloride 94 L (98-107) mmol/L Carbon Dioxide 35 H (22-30) mmol/L BUN 105 H* (9-20) mg/dL Creatinine 1.93 H (0.66-1.25) mg/dL Glucose 219 H (74-99) mg/dL POC Glucose (mg/dL) 242 H (70-110) mg/dL Assessment and Plan Assessment: Acute on chronic hypoxemic and hypercapnic respiratory failure, secondary to diastolic CHF exacerbation. Atrial fibrillation with rapid ventricular response, with anticipated transesophageal echocardiogram/cardioversion. Very severe COPD, with an FEV1 that is 22% of predicted. Obstructive sleep apnea syndrome, patient noncompliant with noninvasive positive airway pressure device. Morbid obesity with a BMI of 48.7 kg/m. Acute on chronic kidney disease. Hyperkalemia. Chronic lower extremity edema, with multiple venous stasis ulcers. History of hypertension. History of dyslipidemia. Former tobacco dependence. Plan: Plan dated April 06, 2024. The patient continues on nasal O2 at 6 L. BiPAP device is in the room with settings of 15/6 and 50%. The patient is not receiving any IV fluids. We will continue to follow make recommendations along the way. The patient continues with IV Lasix, bronchodilators, and factor Xa inhibitor. We will continue to follow make recommendations. Prognosis is poor. Labs, x-rays, and all medications have been reviewed. Plan dated April 07, 2024. The patient is doing much better today. His oxygen requirements is gone from 6 L, down to 4. He did use BiPAP last night for about 4 hours, with settings of 14/6, 50%. Labs, x-rays, and all medications are reviewed. The patient was walking around the room without distress. There was no conversational dyspnea, audible wheezing, or use of accessory muscles. We will continue to follow. Prognosis is guarded. End date is April 08, 2024. The patient is scheduled to have a transesophageal echocardiogram, and cardioversion, done by cardiology today. The patient continues on 4 L of oxygen. Labs, x-rays, and medications are reviewed. The patient's overall prognosis remains guarded. We will continue to follow the patient, and make recommendations where appropriate. Time with Patient: Less than 30
--- NOTE | 2024-04-08 12:59 | XR ---
EXAMINATION TYPE: XR chest 1V DATE OF EXAM: 04/08/2024 HISTORY: Shortness of breath. COMPARISON: None. TECHNIQUE: Single view of the chest is submitted. FINDINGS: Demonstrated are scattered senescent parenchymal change. There is no evidence for focal infiltrate. Persistent cardiomegaly. Much improved over venous congestion and small effusions. Hilar and mediastinal structures are within normal limits. Degenerative changes are seen of the dorsal spine. IMPRESSION: 1. Much improved features of congestive failure. [facility], , 04/08/2024 12:56 PM
--- NOTE | 2024-04-08 13:06 | P.PN ---
Subjective Progress Note Date: 04/08/24 patient is 58-year-old gentleman past medical history significant for congestive heart failure, atrial fibrillation, hypertension, hyperlipidemia, chronic kidney disease, COPD, and morbid obesity who presented the ER because of generalized debility and increasing weakness. Patient stated that he has been feeling like this for the last few weeks. Patient has been complaining of shortness of breath at rest as on exertion. Patient states that he is unable to get around. Denies any chest pain. There is no complaint of palpitations. Patient also complained of increased shakiness and tremors. Denies any fever or chills. There is no complaint of chest pain. There is no complaint orthopnea or PND. Because of the symptoms, patient presented to the ER Initial lab work done in the ER showed WBC 1.1, hemoglobin 15.6, platelet count 240, INR 1, sodium 133, potassium 5.6, chloride 96, BUN 119, creatinine 2.94 glucose 88, calcium 7.7, magnesium 2.6, bilirubin 1, troponin 0.017, proBNP 13,300 EKG done in the ER showed heart rate of 78, irregular rhythm, no ST segment elevation or depression seen, T-wave inversions seen in leads II, III and aVF. V1 to V4. Chest x-ray done in the ER showed mild bibasilar infiltrates, marked cardiomegaly CT head done showed no acute intracranial process CT cervical spine done showed no evidence of any cervical spine pathology X-ray pelvis does not show any evidence of fracture Patient admitted to internal medicine service 04/06. Patient seen and examined. Currently on BiPAP with a 50% FiO2. He is complaining of being short of breath on exertion. Denies any cough. Currently in A-fib, rate poorly controlled. Currently on Cardizem drip. 04/07. Patient seen and examined. Currently on 4 L of oxygen. Patient is diuresing well. Patient is anxious today. 04/08. Patient seen and examined. Patient underwent JESS with cardioversion today. Currently sinus rhythm. Said breathing has improved. REVIEW OF SYSTEMS: CONSTITUTIONAL: No fever, no malaise,. CARDIOVASCULAR: No chest pain, no palpitations, no syncope. PULMONARY: As mentioned above GASTROINTESTINAL: No diarrhea, no nausea, no vomiting, no abdominal pain. NEUROLOGICAL: No headaches, no weakness, PHYSICAL EXAMINATION: GENERAL: The patient is alert and oriented x3, not in any acute distress. Well developed, well nourished. HEENT: Pupils are round and equally reacting to light. EOMI. No scleral icterus. No conjunctival pallor. Normocephalic, atraumatic. No pharyngeal erythema. No thyromegaly. CARDIOVASCULAR: S1 and S2 present. No murmurs, rubs, or gallops. PULMONARY: Diminished breath sound at the bases bilaterally no wheezing or crackles. ABDOMEN: Soft, nontender, nondistended, normoactive bowel sounds. No palpable organomegaly. MUSCULOSKELETAL: No joint swelling or deformity. EXTREMITIES: No cyanosis, clubbing, or pedal edema. NEUROLOGICAL: Gross neurological examination did not reveal any focal deficits. SKIN: No rashes. Assessment and plan Acute hypoxic respiratory failure Acute kidney injury Hyperkalemia Hyponatremia Acute on chronic heart failure with preserved EF, 60 to 65% Persistent atrial fibrillation Hyperkalemia Hypertension Hyperlipidemia Chronic kidney disease COPD Morbid obesity: BMI 48.7 Obstructive sleep apnea, noncompliant with CPAP outpatient Monitor vital signs Monitor CBC Monitor CMP Continue telemetry monitoring Continue oxygen supplementation Continue BiPAP Continue breathing treatment strict I's and O's, daily weights Avoid nephrotoxic agents Status post JESS with cardioversion on 04/08 Continue oral Toprol Continue amiodarone 4 mg twice daily Continue Eliquis Continue torsemide Nephrology following Cardiology following Pulmonary following Labs and medication were reviewed.. Continue same treatment. Continue with sy mptomatic treatment. Resume home medication. Monitor labs and vitals. DVT and GI prophylaxis. Further recommendations as per clinical course of the patient Dictation was produced using [employer] dictation software. please excuse any grammatical, word or spelling errors. Objective - Vital Signs Vital signs: Vital Signs Temp 97.8 F 04/08/24 12:00 Pulse 89 04/08/24 12:00 Resp 18 04/08/24 12:00 BP 121/89 04/08/24 12:00 Pulse Ox 96 04/08/24 12:00 FiO2 50 04/08/24 01:13 Intake & Output 04/07/24 04/08/24 04/08/24 18:59 06:59 18:59 Intake Total 240 240 500 Output Total 3200 700 Balance 240 -2960 -200 Weight 92 kg 150 kg Intake: IV 500 Oral 240 240 Output: Urine 3200 700 Other: Voiding Method Indwelling Catheter Indwelling Catheter Indwelling Catheter # Voids 3 # Bowel Movements 2 0 - Labs CBC & Chem 7: 04/07/24 06:00 04/08/24 07:09 Labs: Abnormal Lab Results - Last 24 Hours (Table) 04/07/24 04/07/24 04/08/24 Range/Units 16:35 20:18 06:17 Chloride (98-107) mmol/L Carbon Dioxide (22-30) mmol/L BUN (9-20) mg/dL Creatinine (0.66-1.25) mg/dL Glucose (74-99) mg/dL POC Glucose (mg/dL) 245 H 211 H 238 H (70-110) mg/dL 04/08/24 04/08/24 Range/Units 07:09 11:52 Chloride 94 L (98-107) mmol/L Carbon Dioxide 35 H (22-30) mmol/L BUN 105 H* (9-20) mg/dL Creatinine 1.93 H (0.66-1.25) mg/dL Glucose 219 H (74-99) mg/dL POC Glucose (mg/dL) 242 H (70-110) mg/dL
[2024-04-08] MEDS: DEXTROSE 5% IN WATER 100 ML with AMIODARONE 150 MG IV ONE (13:55)
[2024-04-08] MEDS: DILTIAZEM CD 180 MG CAP.ER.24H PO SCH (14:05)
[2024-04-08] MEDS: AMIODARONE 360 MG in DEXTROSE 5% IN WATER 200 ML IV ONE (14:15)
--- NOTE | 2024-04-08 15:41 | P.PN ---
Subjective Progress Note Date: 04/08/24 Principal diagnosis: DEBRA secondary to ATN and cardiorenal syndrome Hosiptal course: Patient is a 58-year-old male with history of chronic diastolic CHF, hypertension, A. fib, morbid obesity, COPD presented to the ED with shortness of breath on 04/05 and he was in volume overload. He was diagnosed with Acute hypoxic respiratory failure, atrial fibrillation with a rapid ventricular rate, and cardiorenal syndrome. 04/08/24 Patient seen today. Denies any new complaints. Has a good urine output. He had JESS with cardioversion today for Afib with RVR. Labs today show Na 137, K 3.8, BUN 105, Creatinine 1.93, GFR 37. Chest xray done today shows much improved features of congestive failure. Objective - Vital Signs Vital signs: Vital Signs Temp 97.8 F 04/08/24 12:00 Pulse 155 H 04/08/24 14:00 Resp 18 04/08/24 12:00 BP 121/89 04/08/24 12:00 Pulse Ox 96 04/08/24 12:00 FiO2 50 04/08/24 01:13 Intake & Output 04/07/24 04/08/24 04/08/24 18:59 06:59 18:59 Intake Total 240 240 200 Output Total 3200 600 Balance 240 -2960 -400 Weight 92 kg 150 kg Intake: IV 200 Oral 240 240 Output: Urine 3200 600 Other: Voiding Method Indwelling Catheter Indwelling Catheter Indwelling Catheter # Voids 3 # Bowel Movements 2 0 - Exam General: nontoxic, no distress, appears at stated age, obese Derm: warm, dry, intact Head: atraumatic, normocephalic, symmetric Cardiovascular: irregularly irregular Lungs:diminished breath sounds b/l no accessory muscle use Abdominal: soft, non-tender to palpataion Extremities:varicose veins and venous stasis ulcer on LE b/l Neuro: Alert, Oriented - Labs CBC & Chem 7: 04/07/24 06:00 04/08/24 07:09 Labs: Abnormal Lab Results - Last 24 Hours (Table) 04/07/24 04/07/24 04/08/24 Range/Units 16:35 20:18 06:17 Chloride (98-107) mmol/L Carbon Dioxide (22-30) mmol/L BUN (9-20) mg/dL Creatinine (0.66-1.25) mg/dL Glucose (74-99) mg/dL POC Glucose (mg/dL) 245 H 211 H 238 H (70-110) mg/dL 04/08/24 04/08/24 Range/Units 07:09 11:52 Chloride 94 L (98-107) mmol/L Carbon Dioxide 35 H (22-30) mmol/L BUN 105 H* (9-20) mg/dL Creatinine 1.93 H (0.66-1.25) mg/dL Glucose 219 H (74-99) mg/dL POC Glucose (mg/dL) 242 H (70-110) mg/dL Assessment and Plan Assessment: Renal function worsening secondary to Afib RVR Acute kidney injury secondary to ATN secondary to cardiorenal syndrome. No hydronephrosis noted on kidney ultrasound done in December 2023. Creatinine 2.9 on admission and is 1.93 today. Renal fx worse today due to hemodynamic instability. UA benign. A-fib with RVR. S/p JESS with cardioversion today Chronic kidney disease stage IIIa with baseline creatinine 1.2-1.4 secondary to nephrosclerosis. Volume overload. Improving with diuresis. Hyperphosphatemia secondary to acute kidney injury. Phosphorus level 7.0 dated April 05, 2024. Morbid obesity. Acute hypoxic respiratory failure. Improved. Acute on chronic diastolic CHF. Plan: Reduce torsemide 20 mg once daily. Continue maintenance potassium supplementation. Low-salt diet and 1500 cc fluid restriction. Continue to monitor renal function and urine output. Monitor BMP I have seen and examined the patient with resident and agree with A&P as written.
[2024-04-08 16:23] LABS: Glucose,Whole Blood 409 mg/dL (70-110)
[2024-04-08 17:38] LABS: Glucose,Whole Blood 392 mg/dL (70-110)
[2024-04-08] MEDS: METOPROLOL TARTRATE 50 MG TAB PO STA (18:35)
[2024-04-08 19:57] LABS: Glucose,Whole Blood 350 mg/dL (70-110)
[2024-04-08] MEDS: AMIODARONE 450 MG in DEXTROSE 5% IN WATER 250 ML IV SCH (20:46)
[2024-04-09 06:12] LABS: Glucose,Whole Blood 227 mg/dL (70-110)
[2024-04-09 07:05] LABS: Basophils % (A) 0 %; Eosinophils % (A) 0 %; HCT 52.3 % (39.0-53.0); HGB 16.7 gm/dL (13.0-17.5); Lymphocytes # (A) 0.3 k/uL (1.0-4.8); Lymphocytes % (A) 4 %; MCH 28.8 pg (25.0-35.0); Mean Platelet Volume 8.1; Monocytes # (A) 0.3 k/uL (0-1.0); Monocytes % (A) 4 %; Neutrophils # (A) 7.2 k/uL (1.3-7.7); Neutrophils % (A) 92 %; Platelet Count 176 k/uL (150-450); RBC 5.81 m/uL (4.30-5.90); WBC 7.9 k/uL (3.8-10.6)
[2024-04-09 07:53] LABS: ALT 24 U/L (4-49); AST 21 U/L (17-59); African American GFR (CKD) 42 (>60 ml/min/1.73 sqM); Alkaline Phosphatase 77 U/L (38-126); Anion Gap 7 mmol/L; Calcium 9.1 mg/dL (8.4-10.2); Carbon Dioxide 38 mmol/L (22-30); Chloride 91 mmol/L (98-107); Glucose 218 mg/dL (74-99); Non-African American GFR(CKD) 37 (>60 ml/min/1.73 sqM); Potassium 3.8 mmol/L (3.5-5.1); Sodium 136 mmol/L (137-145); Total Protein 6.8 g/dL (6.3-8.2)
[2024-04-09 07:56] LABS: Blood Urea Nitrogen 102 mg/dL (9-20)
[2024-04-09] MEDS: METOPROLOL SUCCINATE (ER) 50 MG TAB.ER.24H PO SCH (08:15)
[2024-04-09] MEDS: TORSEMIDE 20 MG TAB PO SCH (08:15)
[2024-04-09 11:18] LABS: Glucose,Whole Blood 361 mg/dL (70-110)
--- NOTE | 2024-04-09 12:12 | P.PN ---
Subjective Progress Note Date: 04/09/24 Principal diagnosis: DEBRA secondary to ATN and cardiorenal syndrome Hosiptal course: Patient is a 58-year-old male with history of chronic diastolic CHF, hypertension, A. fib, morbid obesity, COPD presented to the ED with shortness of breath on 04/05 and he was in volume overload. He was diagnosed with Acute hypoxic respiratory failure, atrial fibrillation with a rapid ventricular rate, and cardiorenal syndrome. 04/08/24 Patient seen today. Denies any new complaints. Has a good urine output. He had JESS with cardioversion today for Afib with RVR. Labs today show Na 137, K 3.8, BUN 105, Creatinine 1.93, GFR 37. Chest xray done today shows much improved features of congestive failure. 04/09/24 Patient evaluated today. He had JESS with cardioversion yesterday. But his rhythm is back to AFib with RVR and he is currently on amiodarone drip per cardiology. Denies chest pain, shortness of breath. Has the carroll catheter in place and reports discomfort associated with it. Labs today show Na 136, K 3.8, BUN 102. creatinine 1.94 and GFR 37. Objective - Vital Signs Vital signs: Vital Signs Temp 98.2 F 04/09/24 07:34 Pulse 124 H 04/09/24 08:16 Resp 16 04/09/24 07:34 BP 136/80 04/09/24 07:34 Pulse Ox 96 04/09/24 07:34 FiO2 50 04/08/24 23:11 Intake & Output 04/08/24 04/09/24 04/09/24 18:59 06:59 18:59 Intake Total 320 193.059 Output Total 600 1700 Balance -280 -1700 193.059 Weight 150 kg 150.3 kg Intake: IV 200 Intake, IV Titration 193.059 Amount Amiodarone 450 mg In 193.059 Dextrose 5% in Water 250 ml @ 0.5 MG/MIN 16.667 mls/hr IV .Q15H [facility] Rx#: [id number] Oral 120 0 Output: Urine 600 1700 Other: Voiding Method Indwelling Catheter Indwelling Catheter Indwelling Catheter - Exam General: nontoxic, no distress, appears at stated age, obese Derm: warm, dry Cardiovascular: irregularly irregular Lungs: diminished breath sounds b/l no accessory muscle use Abdominal: soft, non-tender to palpataion Extremities: varicose veins and venous stasis ulcer on LE b/l Neuro: Alert, Oriented - Labs CBC & Chem 7: 04/09/24 06:17 04/09/24 06:17 Labs: Abnormal Lab Results - Last 24 Hours (Table) 04/08/24 04/08/24 04/08/24 Range/Units 11:52 16:21 17:36 Lymphocytes # (1.0-4.8) k/uL Sodium (137-145) mmol/L Chloride (98-107) mmol/L Carbon Dioxide (22-30) mmol/L BUN (9-20) mg/dL Creatinine (0.66-1.25) mg/dL Glucose (74-99) mg/dL POC Glucose (mg/dL) 242 H 409 H 392 H (70-110) mg/dL 04/08/24 04/09/24 04/09/24 Range/Units 19:56 06:11 06:17 Lymphocytes # 0.3 L (1.0-4.8) k/uL Sodium (137-145) mmol/L Chloride (98-107) mmol/L Carbon Dioxide (22-30) mmol/L BUN (9-20) mg/dL Creatinine (0.66-1.25) mg/dL Glucose (74-99) mg/dL POC Glucose (mg/dL) 350 H 227 H (70-110) mg/dL 04/09/24 Range/Units 06:17 Lymphocytes # (1.0-4.8) k/uL Sodium 136 L (137-145) mmol/L Chloride 91 L (98-107) mmol/L Carbon Dioxide 38 H (22-30) mmol/L BUN 102 H* (9-20) mg/dL Creatinine 1.94 H (0.66-1.25) mg/dL Glucose 218 H (74-99) mg/dL POC Glucose (mg/dL) (70-110) mg/dL Assessment and Plan Assessment: Acute kidney injury secondary to ATN secondary to cardiorenal syndrome. No hydronephrosis noted on kidney ultrasound done in December 2023. Creatinine 2.9 on admission and is 1.94 today. Renal fx worsened today due to hemodynamic instability/afib w/rvr. S/p JESS with cardioversion yesterday. UA benign. Chronic kidney disease stage IIIa with baseline creatinine 1.2-1.4 secondary to nephrosclerosis. Volume overload. Improving with diuresis. Hyperphosphatemia secondary to acute kidney injury. Phosphorus level 7.0 dated April 05, 2024 and 3.1 on 04/07/24. Resolved Morbid obesity. Acute hypoxic respiratory failure. Improved. Acute on chronic diastolic CHF Plan: Continue torsemide 20 mg once daily. Continue maintenance potassium supplementation. Low-salt diet and 1500 cc fluid restriction. Continue to monitor renal function and urine output. Monitor BMP Amiodarone drip per cardiology for AFib with RVR I have seen and examined the patient with resident and agree with A&P as written.
--- NOTE | 2024-04-09 12:51 | P.PN ---
Subjective Progress Note Date: 04/09/24 patient is 58-year-old gentleman past medical history significant for congestive heart failure, atrial fibrillation, hypertension, hyperlipidemia, chronic kidney disease, COPD, and morbid obesity who presented the ER because of generalized debility and increasing weakness. Patient stated that he has been feeling like this for the last few weeks. Patient has been complaining of shortness of breath at rest as on exertion. Patient states that he is unable to get around. Denies any chest pain. There is no complaint of palpitations. Patient also complained of increased shakiness and tremors. Denies any fever or chills. There is no complaint of chest pain. There is no complaint orthopnea or PND. Because of the symptoms, patient presented to the ER Initial lab work done in the ER showed WBC 1.1, hemoglobin 15.6, platelet count 240, INR 1, sodium 133, potassium 5.6, chloride 96, BUN 119, creatinine 2.94 glucose 88, calcium 7.7, magnesium 2.6, bilirubin 1, troponin 0.017, proBNP 13,300 EKG done in the ER showed heart rate of 78, irregular rhythm, no ST segment elevation or depression seen, T-wave inversions seen in leads II, III and aVF. V1 to V4. Chest x-ray done in the ER showed mild bibasilar infiltrates, marked cardiomegaly CT head done showed no acute intracranial process CT cervical spine done showed no evidence of any cervical spine pathology X-ray pelvis does not show any evidence of fracture Patient admitted to internal medicine service 04/06. Patient seen and examined. Currently on BiPAP with a 50% FiO2. He is complaining of being short of breath on exertion. Denies any cough. Currently in A-fib, rate poorly controlled. Currently on Cardizem drip. 04/07. Patient seen and examined. Currently on 4 L of oxygen. Patient is diuresing well. Patient is anxious today. 04/08. Patient seen and examined. Patient underwent JESS with cardioversion today. Currently sinus rhythm. Said breathing has improved. 04/09. Patient seen and examined. Blood work done showed WBC 7.1, hemoglobin 16.7, sodium 136, potassium 3.8, BUN 102, creatinine 1.94. Continues to be tachycardic. Currently on amiodarone drip REVIEW OF SYSTEMS: CONSTITUTIONAL: No fever, no malaise,. CARDIOVASCULAR: No chest pain, no palpitations, no syncope. PULMONARY: As mentioned above GASTROINTESTINAL: No diarrhea, no nausea, no vomiting, no abdominal pain. NEUROLOGICAL: No headaches, no weakness, PHYSICAL EXAMINATION: GENERAL: The patient is alert and oriented x3, not in any acute distress. Well developed, well nourished. HEENT: Pupils are round and equally reacting to light. EOMI. No scleral icterus. No conjunctival pallor. Normocephalic, atraumatic. No pharyngeal erythema. No thyromegaly. CARDIOVASCULAR: S1 and S2 present. No murmurs, rubs, or gallops. Tachycardic PULMONARY: Diminished breath sound at the bases bilaterally no wheezing or crackles. ABDOMEN: Soft, nontender, nondistended, normoactive bowel sounds. No palpable organomegaly. MUSCULOSKELETAL: No joint swelling or deformity. EXTREMITIES: No cyanosis, clubbing, or pedal edema. NEUROLOGICAL: Gross neurological examination did not reveal any focal deficits. SKIN: No rashes. Assessment and plan Acute hypoxic respiratory failure Acute kidney injury Hyperkalemia Hyponatremia Acute on chronic heart failure with preserved EF, 60 to 65% Persistent atrial fibrillation Hyperkalemia Hypertension Hyperlipidemia Chronic kidney disease COPD Morbid obesity: BMI 48.7 Obstructive sleep apnea, noncompliant with CPAP outpatient Monitor vital signs Monitor CBC Monitor CMP Continue telemetry monitoring Continue oxygen supplementation Continue BiPAP Continue breathing treatment strict I's and O's, daily weights Avoid nephrotoxic agents Status post JESS with cardioversion on 04/08 Continue oral Toprol Continue amiodarone drip Continue Eliquis Continue torsemide Nephrology following Cardiology following Pulmonary following Labs and medication were reviewed.. Continue same treatment. Continue with sym ptomatic treatment. Resume home medication. Monitor labs and vitals. DVT and GI prophylaxis. Further recommendations as per clinical course of the patient Dictation was produced using [employer] dictation software. please excuse any grammatical, word or spelling errors. Objective - Vital Signs Vital signs: Vital Signs Temp 98.2 F 04/09/24 07:34 Pulse 124 H 04/09/24 08:16 Resp 16 04/09/24 07:34 BP 136/80 04/09/24 07:34 Pulse Ox 96 04/09/24 07:34 FiO2 50 04/08/24 23:11 Intake & Output 04/08/24 04/09/24 04/09/24 18:59 06:59 18:59 Intake Total 320 193.059 Output Total 600 1700 Balance -280 -1700 193.059 Weight 150 kg 150.3 kg Intake: IV 200 Intake, IV Titration 193.059 Amount Amiodarone 450 mg In 193.059 Dextrose 5% in Water 250 ml @ 0.5 MG/MIN 16.667 mls/hr IV .Q15H COUNTS INCLUDE 234 BEDS AT THE [facility] Rx#: [id number] Oral 120 0 Output: Urine 600 1700 Other: Voiding Method Indwelling Catheter Indwelling Catheter Indwelling Catheter - Labs CBC & Chem 7: 04/09/24 06:17 04/09/24 06:17 Labs: Abnormal Lab Results - Last 24 Hours (Table) 04/08/24 04/08/24 04/08/24 Range/Units 11:52 16:21 17:36 Lymphocytes # (1.0-4.8) k/uL Sodium (137-145) mmol/L Chloride (98-107) mmol/L Carbon Dioxide (22-30) mmol/L BUN (9-20) mg/dL Creatinine (0.66-1.25) mg/dL Glucose (74-99) mg/dL POC Glucose (mg/dL) 242 H 409 H 392 H (70-110) mg/dL 04/08/24 04/09/24 04/09/24 Range/Units 19:56 06:11 06:17 Lymphocytes # 0.3 L (1.0-4.8) k/uL Sodium (137-145) mmol/L Chloride (98-107) mmol/L Carbon Dioxide (22-30) mmol/L BUN (9-20) mg/dL Creatinine (0.66-1.25) mg/dL Glucose (74-99) mg/dL POC Glucose (mg/dL) 350 H 227 H (70-110) mg/dL 04/09/24 Range/Units 06:17 Lymphocytes # (1.0-4.8) k/uL Sodium 136 L (137-145) mmol/L Chloride 91 L (98-107) mmol/L Carbon Dioxide 38 H (22-30) mmol/L BUN 102 H* (9-20) mg/dL Creatinine 1.94 H (0.66-1.25) mg/dL Glucose 218 H (74-99) mg/dL POC Glucose (mg/dL) (70-110) mg/dL
--- NOTE | 2024-04-09 13:02 | P.PN ---
Subjective Progress Note Date: 04/09/24 Principal diagnosis: Shortness of breath. This is a 58-year-old white male with morbid obesity, chronic diastolic congestive heart failure, chronic obstructive pulmonary disease, chronic kidney disease, familiar to my service from previous admissions, patient presented to the ER with few days history of increased shortness of breath, weakness, generalized medical debility. No chest pain, no fever, no chills, no hemoptysis, workup in the ER included CBC that showed WBC count of 7.1 hemoglobin 15.6, abnormal potassium of 5.6 abnormal renal profile with a BUN of 119 creatinine 2.94 and abnormal BNP level of 13,300. On his initial arrival, patient was in moderate respiratory distress he was placed on BiPAP 14/6/50%, when I saw the patient I recommended an ABG that showed a pO2 of 68 pCO2 55 pH of 7.35 and this was on BiPAP. Chest x-ray showed evidence of mild interstitial edema and the patient is now on Lasix 60 mg IV push twice daily. Patient is on bronchodilators he is also on methylprednisolone 60 mg IV push every 6 hours. Progress note dated April 06, 2024. 58-year-old male seen today in room 364. He was seen in consultation yesterday. The patient has a history of chronic diastolic CHF, and chronic obstructive pulmonary disease among other things. Currently he is on 6 L nasal cannula. No IV fluids. He has a BiPAP device in the room, with settings of 14/6, and 50%. Clinically, the patient states that he starting to feel a bit better. His chest x-ray revealed mild interstitial edema. He was placed on Lasix. He is also getting bronchodilators and corticosteroids. Current laboratory data includes a completely normal CBC. Sodium 137, potassium 4.4, chlorides 97, CO2 34, BUN 97, creatinine 1.60. Glucose is 386. Progress note dated April 07, 2024. 58-year-old male seen in room 364. Currently, the patient is not receiving any IV fluids. The patient is currently on 4 L nasal cannula. He is walking around the room. He did use both BiPAP and nasal O2 last night. He used BiPAP for about 4 hours. His settings were 14/6, and 50%. Current labs include a white count 10.6, hemoglobin 16.3, hematocrit 48.2, and a normal platelet count. Sodium 137, potassium 3.8, chlorides 98, CO2 36, BUN 96, creatinine 1.49. Glucose is 210. Progress note dated April 08, 2024. 58-year-old male who is seen today in room 364. The patient was to have a transesophageal echocardiogram, and cardioversion, by cardiology today. He remains on 4 L of oxygen by nasal cannula. According to the nurses, the patient had a relatively uneventful night. Laboratory data includes a sodium 137, potassium 3.8, chlorides 94, CO2 35, BUN 105, creatinine 1.93. Glucose is 242. Calcium 9.4. Progress note dated April 09, 2024. The patient had a transesophageal echocardiogram and cardioversion, yesterday, but unfortunately, he is back in atrial fibrillation. He is seen today in room 364. He is on amiodarone at 0.5 mg/min. He is getting nasal O2 at 3 L by nasal cannula. The patient did spend some time last night on BiPAP, with settings of 14/6, 50%. Current laboratory data includes a white count 7.9, hemoglobin 16.7, hematocrit 52.3, and a platelet count is normal. Sodium 136, potassium 3.8, chlorides 91, CO2 38, BUN 102, and creatinine 1.94. Glucose is 361. Albumin is 4. Objective - Vital Signs Vital signs: Vital Signs Temp 98.4 F 04/09/24 11:20 Pulse 104 H 04/09/24 11:26 Resp 20 04/09/24 11:20 BP 153/84 04/09/24 11:20 Pulse Ox 94 L 04/09/24 11:20 FiO2 50 04/08/24 23:11 Intake & Output 04/08/24 04/09/24 04/09/24 18:59 06:59 18:59 Intake Total 320 193.059 Output Total 600 1700 1000 Balance -280 1700 -806.941 Weight 150 kg 150.3 kg Intake: IV 200 Intake, IV Titration 193.059 Amount Amiodarone 450 mg In 193.059 Dextrose 5% in Water 250 ml @ 0.5 MG/MIN 16.667 mls/hr IV .Q15H [facility] Rx#: [id number] Oral 120 0 Output: Urine 600 1700 1000 Other: Voiding Method Indwelling Catheter Indwelling Catheter Indwelling Catheter - Exam No acute distress, oriented 3. No audible wheezing or use of accessory muscles. Currently on 3 L nasal cannula. HEENT examination is grossly unremarkable. Mucous membranes are moist. No oral lesions. Neck supple. Full range of motion. No adenopathy thyromegaly or neck vein distention. Cardiovascular examination reveals an irregular rhythm and rate. S1-S2 normal. No S3 or S4. No discernible murmur noted. Lungs reveal diminished bilateral breath sounds. Minimal crackles and rhonchi noted. Abdomen soft bowel sounds are heard. No masses or tenderness. Extremities reveal 3+ bilateral lower extremity pitting edema. Skin reveals multiple superficial venous stasis ulcers. Neurologic examination is brief but nonfocal. - Labs CBC & Chem 7: 04/09/24 06:17 04/09/24 06:17 Labs: Abnormal Lab Results - Last 24 Hours (Table) 04/08/24 04/08/24 04/08/24 Range/Units 16:21 17:36 19:56 Lymphocytes # (1.0-4.8) k/uL Sodium (137-145) mmol/L Chloride (98-107) mmol/L Carbon Dioxide (22-30) mmol/L BUN (9-20) mg/dL Creatinine (0.66-1.25) mg/dL Glucose (74-99) mg/dL POC Glucose (mg/dL) 409 H 392 H 350 H (70-110) mg/dL 04/09/24 04/09/24 04/09/24 Range/Units 06:11 06:17 06:17 Lymphocytes # 0.3 L (1.0-4.8) k/uL Sodium 136 L (137-145) mmol/L Chloride 91 L (98-107) mmol/L Carbon Dioxide 38 H (22-30) mmol/L BUN 102 H* (9-20) mg/dL Creatinine 1.94 H (0.66-1.25) mg/dL Glucose 218 H (74-99) mg/dL POC Glucose (mg/dL) 227 H (70-110) mg/dL 04/09/24 Range/Units 11:16 Lymphocytes # (1.0-4.8) k/uL Sodium (137-145) mmol/L Chloride (98-107) mmol/L Carbon Dioxide (22-30) mmol/L BUN (9-20) mg/dL Creatinine (0.66-1.25) mg/dL Glucose (74-99) mg/dL POC Glucose (mg/dL) 361 H (70-110) mg/dL Assessment and Plan Assessment: Acute on chronic hypoxemic and hypercapnic respiratory failure, secondary to diastolic CHF exacerbation. Atrial fibrillation with rapid ventricular response, S/P JESS/cardioversion, April 08, 2024. Very severe COPD, with an FEV1 that is 22% of predicted. Obstructive sleep apnea syndrome, patient noncompliant with noninvasive positive airway pressure device. Morbid obesity with a BMI of 48.7 kg/m. Acute on chronic kidney disease. Hyperkalemia. Chronic lower extremity edema, with multiple venous stasis ulcers. History of hypertension. History of dyslipidemia. Former tobacco dependence. Plan: Plan dated April 06, 2024. The patient continues on nasal O2 at 6 L. BiPAP device is in the room with settings of 15/6 and 50%. The patient is not receiving any IV fluids. We will continue to follow make recommendations along the way. The patient continues with IV Lasix, bronchodilators, and factor Xa inhibitor. We will continue to follow make recommendations. Prognosis is poor. Labs, x-rays, and all medications have been reviewed. Plan dated April 07, 2024. The patient is doing much better today. His oxygen requirements is gone from 6 L, down to 4. He did use BiPAP last night for about 4 hours, with settings of 14/6, 50%. Labs, x-rays, and all medications are reviewed. The patient was walking around the room without distress. There was no conversational dyspnea, audible wheezing, or use of accessory muscles. We will continue to follow. Prognosis is guarded. Plan date is April 08, 2024. The patient is scheduled to have a transesophageal echocardiogram, and ca rdioversion, done by cardiology today. The patient continues on 4 L of oxygen. Labs, x-rays, and medications are reviewed. The patient's overall prognosis remains guarded. We will continue to follow the patient, and make recommendations where appropriate. Plan dated April 09, 2024. Unfortunately, the patient is back in atrial fibrillation with a rapid ventricular response. He is currently on 3 L of oxygen. The patient is also getting amiodarone at 0.5 mg/min. He does spend the night times, on BiPAP, with settings of 14/6, and 50%. Labs, x-rays, medications are reviewed. We will co pia to follow. Prognosis is very guarded. No additional recommendations at this time. Time with Patient: Less than 30
--- NOTE | 2024-04-09 13:05 | P.PN ---
Subjective Progress Note Date: 04/09/24 Principal diagnosis: HPI: [This is a morbidly obese 58-year-old gentleman with history of heart failure with preserved ejection fraction, paroxysmal atrial fibrillation hypertension hyperlipidemia chronic kidney disease COPD presented to the hospital with atrial fibrillation was seen by Dr. Randolph and yesterday he underwent electrical cardioversion after a transesophageal echo converted to sinus rhythm but he is back in atrial fibrillation with a rapid rate. He is currently on IV amiodarone the rate is in the 120 range. He is hemodynamically stable denies any chest pain. Patient probably has obstructive sleep apnea as well. We will continue amiodarone intravenous for the other 24 hours and see how he does prognosis remains guarded will seek EP evaluation as well. He sees Dr. Bridges in the outpatient setting]. PHYSICIAL EXAM: [Vitals are stable JVD 1 cm no carotid bruit S1-S2 with a tachycardia short systolic murmur lungs reveal diminished air entry abdomen is distended lower EXTR reveal diminished pulses Central nervous system normal]. IMPRESSION: 1. [Atrial for with rapid ventricular rate status post cardioversion that was successful but back in A-fib]. 2. [Heart failure with preserved ejection fraction]. 3. [Morbid obesity]. 4. [Chronic kidney disease]. 5. [Hypertension]. RECOMMENDATIONS: [Continue current medications including IV amiodarone and high- dose beta-ag and see how he does. EKG in a.m. prognosis remains guarded explained to the patient]. Objective - Vital Signs Vital signs: Vital Signs Temp 98.4 F 04/09/24 11:20 Pulse 104 H 04/09/24 11:26 Resp 20 04/09/24 11:20 BP 153/84 04/09/24 11:20 Pulse Ox 94 L 04/09/24 11:20 FiO2 50 04/08/24 23:11 Intake & Output 04/08/24 04/09/24 04/09/24 18:59 06:59 18:59 Intake Total 320 193.059 Output Total 600 1700 1000 Balance -280 -1700 -806.941 Weight 150 kg 150.3 kg Intake: IV 200 Intake, IV Titration 193.059 Amount Amiodarone 450 mg In 193.059 Dextrose 5% in Water 250 ml @ 0.5 MG/MIN 16.667 mls/hr IV .Q15H [facility] Rx#: [id number] Oral 120 0 Output: Urine 600 1700 1000 Other: Voiding Method Indwelling Catheter Indwelling Catheter Indwelling Catheter - Labs CBC & Chem 7: 04/09/24 06:17 04/09/24 06:17 Labs: Abnormal Lab Results - Last 24 Hours (Table) 04/08/24 04/08/24 04/08/24 Range/Units 16:21 17:36 19:56 Lymphocytes # (1.0-4.8) k/uL Sodium (137-145) mmol/L Chloride (98-107) mmol/L Carbon Dioxide (22-30) mmol/L BUN (9-20) mg/dL Creatinine (0.66-1.25) mg/dL Glucose (74-99) mg/dL POC Glucose (mg/dL) 409 H 392 H 350 H (70-110) mg/dL 04/09/24 04/09/24 04/09/24 Range/Units 06:11 06:17 06:17 Lymphocytes # 0.3 L (1.0-4.8) k/uL Sodium 136 L (137-145) mmol/L Chloride 91 L (98-107) mmol/L Carbon Dioxide 38 H (22-30) mmol/L BUN 102 H* (9-20) mg/dL Creatinine 1.94 H (0.66-1.25) mg/dL Glucose 218 H (74-99) mg/dL POC Glucose (mg/dL) 227 H (70-110) mg/dL 04/09/24 Range/Units 11:16 Lymphocytes # (1.0-4.8) k/uL Sodium (137-145) mmol/L Chloride (98-107) mmol/L Carbon Dioxide (22-30) mmol/L BUN (9-20) mg/dL Creatinine (0.66-1.25) mg/dL Glucose (74-99) mg/dL POC Glucose (mg/dL) 361 H (70-110) mg/dL
[2024-04-09 16:12] LABS: Glucose,Whole Blood 289 mg/dL (70-110)
[2024-04-09 20:29] LABS: Glucose,Whole Blood 266 mg/dL (70-110)
[2024-04-10 06:14] LABS: Glucose,Whole Blood 261 mg/dL (70-110)
[2024-04-10 07:23] LABS: African American GFR (CKD) 46 (>60 ml/min/1.73 sqM); Anion Gap 9 mmol/L; Blood Urea Nitrogen 96 mg/dL (9-20); Calcium 8.8 mg/dL (8.4-10.2); Carbon Dioxide 29 mmol/L (22-30); Chloride 93 mmol/L (98-107); Glucose 252 mg/dL (74-99); Non-African American GFR(CKD) 40 (>60 ml/min/1.73 sqM); Potassium 4.5 mmol/L (3.5-5.1); Sodium 131 mmol/L (137-145)
[2024-04-10] MEDS ORDERED: METOPROLOL TARTRATE 50 MG TAB PO SCH (10:15)
--- NOTE | 2024-04-10 10:55 | P.PN ---
Subjective Progress Note Date: 04/10/24 HPI: This patient remains in atrial fibrillation the rate is variable but overall it is better than yesterday. I explained to him that we need a better rate control prior to discharge. He is on Eliquis 5 mg twice daily. I will switch him from IV to oral amiodarone at 400 mg twice daily, switch him from metoprolol succinate to metoprolol tartrate 100 mg twice daily and see how he does and if the rate is less than 100 hopefully he can be discharged tomorrow discussed my thoughts in detail with the patient.. PHYSICIAL EXAM: Vitals are stable 1 cm JVD no carotid bruit S1-S2 with a tachycardia irregularity and rhythm short systolic murmur. Lungs reveal diminished air entry lower extremities reveal diminished pulses Central nervous system is normal. IMPRESSION: 1. Atrial fibrillation with rapid ventricular rate status post cardioversion that was successful for an hour and back in atrial fib. 2. Heart failure with preserved ejection fraction. 3. Morbid obesity. 4. Chronic kidney disease. 5. Hypertension. RECOMMENDATIONS: Try to optimize rate control switch him from IV to oral amiodar one and to a short acting beta-ag EKG in a.m. hopefully when the rate is less than 100 he may be discharged and repeat cardioversion while he is loaded with amiodarone. Explained to patient prognosis guarded. Objective - Vital Signs Vital signs: Vital Signs Temp 97.5 F L 04/10/24 08:00 Pulse 144 H 04/10/24 08:00 Resp 20 04/10/24 08:00 BP 156/91 04/10/24 08:00 Pulse Ox 95 04/10/24 08:00 FiO2 50 04/10/24 03:09 Intake & Output 04/09/24 04/10/24 04/10/24 18:59 06:59 18:59 Intake Total 853.059 726.672 200 Output Total 2125 1900 Balance -1271.941 -1173.328 200 Weight 150.3 kg 151.5 kg Intake: Intake, IV Titration 193.059 246.672 Amount Amiodarone 450 mg In 193.059 246.672 Dextrose 5% in Water 250 ml @ 0.5 MG/MIN 16.667 mls/hr IV .Q15H [facility] Rx#: [id number] Oral 660 480 200 Output: Urine 2125 1900 Other: Voiding Method Indwelling Catheter Indwelling Catheter Indwelling Catheter - Labs CBC & Chem 7: 04/09/24 06:17 04/10/24 06:38 Labs: Abnormal Lab Results - Last 24 Hours (Table) 04/09/24 04/09/24 04/09/24 Range/Units 11:16 16:11 20:28 Sodium (137-145) mmol/L Chloride (98-107) mmol/L BUN (9-20) mg/dL Creatinine (0.66-1.25) mg/dL Glucose (74-99) mg/dL POC Glucose (mg/dL) 361 H 289 H 266 H (70-110) mg/dL 04/10/24 04/10/24 Range/Units 06:13 06:38 Sodium 131 L (137-145) mmol/L Chloride 93 L (98-107) mmol/L BUN 96 H (9-20) mg/dL Creatinine 1.81 H (0.66-1.25) mg/dL Glucose 252 H (74-99) mg/dL POC Glucose (mg/dL) 261 H (70-110) mg/dL
[2024-04-10 11:10] LABS: Glucose,Whole Blood 293 mg/dL (70-110)
--- NOTE | 2024-04-10 11:41 | P.PN ---
Subjective Progress Note Date: 04/10/24 Principal diagnosis: Shortness of breath. This is a 58-year-old white male with morbid obesity, chronic diastolic congestive heart failure, chronic obstructive pulmonary disease, chronic kidney disease, familiar to my service from previous admissions, patient presented to the ER with few days history of increased shortness of breath, weakness, generalized medical debility. No chest pain, no fever, no chills, no hemoptysis, workup in the ER included CBC that showed WBC count of 7.1 hemoglobin 15.6, abnormal potassium of 5.6 abnormal renal profile with a BUN of 119 creatinine 2.94 and abnormal BNP level of 13,300. On his initial arrival, patient was in moderate respiratory distress he was placed on BiPAP 14/6/50%, when I saw the patient I recommended an ABG that showed a pO2 of 68 pCO2 55 pH of 7.35 and this was on BiPAP. Chest x-ray showed evidence of mild interstitial edema and the patient is now on Lasix 60 mg IV push twice daily. Patient is on bronchodilators he is also on methylprednisolone 60 mg IV push every 6 hours. Progress note dated April 06, 2024. 58-year-old male seen today in room 364. He was seen in consultation yesterday. The patient has a history of chronic diastolic CHF, and chronic obstructive pulmonary disease among other things. Currently he is on 6 L nasal cannula. No IV fluids. He has a BiPAP device in the room, with settings of 14/6, and 50%. Clinically, the patient states that he starting to feel a bit better. His chest x-ray revealed mild interstitial edema. He was placed on Lasix. He is also getting bronchodilators and corticosteroids. Current laboratory data includes a completely normal CBC. Sodium 137, potassium 4.4, chlorides 97, CO2 34, BUN 97, creatinine 1.60. Glucose is 386. Progress note dated April 07, 2024. 58-year-old male seen in room 364. Currently, the patient is not receiving any IV fluids. The patient is currently on 4 L nasal cannula. He is walking around the room. He did use both BiPAP and nasal O2 last night. He used BiPAP for about 4 hours. His settings were 14/6, and 50%. Current labs include a white count 10.6, hemoglobin 16.3, hematocrit 48.2, and a normal platelet count. Sodium 137, potassium 3.8, chlorides 98, CO2 36, BUN 96, creatinine 1.49. Glucose is 210. Progress note dated April 08, 2024. 58-year-old male who is seen today in room 364. The patient was to have a transesophageal echocardiogram, and cardioversion, by cardiology today. He remains on 4 L of oxygen by nasal cannula. According to the nurses, the patient had a relatively uneventful night. Laboratory data includes a sodium 137, potassium 3.8, chlorides 94, CO2 35, BUN 105, creatinine 1.93. Glucose is 242. Calcium 9.4. Progress note dated April 09, 2024. The patient had a transesophageal echocardiogram and cardioversion, yesterday, but unfortunately, he is back in atrial fibrillation. He is seen today in room 364. He is on amiodarone at 0.5 mg/min. He is getting nasal O2 at 3 L by nasal cannula. The patient did spend some time last night on BiPAP, with settings of 14/6, 50%. Current laboratory data includes a white count 7.9, hemoglobin 16.7, hematocrit 52.3, and a platelet count is normal. Sodium 136, potassium 3.8, chlorides 91, CO2 38, BUN 102, and creatinine 1.94. Glucose is 361. Albumin is 4. Progress note dated April 10, 2024. 58-year-old male seen again in room 364. The patient continues on oxygen, at 3 L. In addition, because of ongoing atrial fibrillation and RVR, the patient continues on amiodarone 0.5 mg/min. The patient does have some mild shortness of breath on exertion, no other complaints. He denies any chest pain. Current labs include a sodium 131, potassium 4.5, chlorides 93, CO2 29, BUN 96, and creatinine 1.81. Calcium is 8.8. Glucose is 293. Objective - Vital Signs Vital signs: Vital Signs Temp 97.5 F L 04/10/24 08:00 Pulse 92 04/10/24 11:30 Resp 20 04/10/24 08:00 BP 156/91 04/10/24 08:00 Pulse Ox 95 04/10/24 08:00 FiO2 50 04/10/24 03:09 Intake & Output 04/09/24 04/10/24 04/10/24 18:59 06:59 18:59 Intake Total 853.059 726.672 200 Output Total 21240 Balance -1271.941 -1173.328 200 Weight 150.3 kg 151.5 kg Intake: Intake, IV Titration 193.059 246.672 Amount Amiodarone 450 mg In 193.059 246.672 Dextrose 5% in Water 250 ml @ 0.5 MG/MIN 16.667 mls/hr IV .Q15H [facility] Rx#: [id number] Oral 660 480 200 Output: Urine 2124 1899 Other: Voiding Method Indwelling Catheter Indwelling Catheter Indwelling Catheter - Exam No acute distress, oriented 3. No audible wheezing or use of accessory muscles. Currently on 3 L nasal cannula. HEENT examination is grossly unremarkable. Mucous membranes are moist. No oral lesions. Neck supple. Full range of motion. No adenopathy thyromegaly or neck vein distention. Cardiovascular examination reveals an irregular rhythm and rate. S1-S2 normal. No S3 or S4. No discernible murmur noted. Lungs reveal diminished bilateral breath sounds. Minimal crackles and rhonchi noted. Abdomen soft bowel sounds are heard. No masses or tenderness. Extremities reveal 3+ bilateral lower extremity pitting edema. Skin reveals multiple superficial venous stasis ulcers. Neurologic examination is brief but nonfocal. - Labs CBC & Chem 7: 04/09/24 06:17 04/10/24 06:38 Labs: Abnormal Lab Results - Last 24 Hours (Table) 04/09/24 04/09/24 04/10/24 Range/Units 16:11 20:28 06:13 Sodium (137-145) mmol/L Chloride (98-107) mmol/L BUN (9-20) mg/dL Creatinine (0.66-1.25) mg/dL Glucose (74-99) mg/dL POC Glucose (mg/dL) 289 H 266 H 261 H (70-110) mg/dL 04/10/24 04/10/24 Range/Units 06:38 11:08 Sodium 131 L (137-145) mmol/L Chloride 93 L (98-107) mmol/L BUN 96 H (9-20) mg/dL Creatinine 1.81 H (0.66-1.25) mg/dL Glucose 252 H (74-99) mg/dL POC Glucose (mg/dL) 293 H (70-110) mg/dL Assessment and Plan Assessment: Acute on chronic hypoxemic and hypercapnic respiratory failure, secondary to diastolic CHF exacerbation. Atrial fibrillation with rapid ventricular response, S/P JESS/cardioversion, April 08, 2024. Very severe COPD, with an FEV1 that is 22% of predicted. Obstructive sleep apnea syndrome, patient noncompliant with noninvasive positive airway pressure device. Morbid obesity with a BMI of 48.7 kg/m. Acute on chronic kidney disease. Hyperkalemia. Chronic lower extremity edema, with multiple venous stasis ulcers. History of hypertension. History of dyslipidemia. Former tobacco dependence. Plan: Plan dated April 06, 2024. The patient continues on nasal O2 at 6 L. BiPAP device is in the room with settings of 15/6 and 50%. The patient is not receiving any IV fluids. We will continue to follow make recommendations along the way. The patient continues with IV Lasix, bronchodilators, and factor Xa inhibitor. We will continue to follow make recommendations. Prognosis is poor. Labs, x-rays, and all medications have been reviewed. Plan dated April 07, 2024. The patient is doing much better today. His oxygen requirements is gone from 6 L, down to 4. He did use BiPAP last night for about 4 hours, with settings of 14/6, 50%. Labs, x-rays, and all medications are reviewed. The patient was walking around the room without distress. There was no conversational dyspnea, audible wheezing, or use of accessory muscles. We will continue to follow. Prognosis is guarded. Plan date is April 08, 2024. The patient is scheduled to have a transesophageal echocardiogram, and cardioversion, done by cardiology today. The patient continues on 4 L of oxygen. Labs, x-rays, and medications are reviewed. The patient's overall prognosis remains guarded. We will continue to follow the patient, and make recommendations where appropriate. Plan dated April 09, 2024. Unfortunately, the patient is back in atrial fibrillation with a rapid ventricular response. He is currently on 3 L of oxygen. The patient is also getting amiodarone at 0.5 mg/min. He does spend the night times, on BiPAP, with settings of 14/6, and 50%. Labs, x-rays, medications are reviewed. We will continue to follow. Prognosis is very guarded. No additional recommendations at this time. Plan dated April 10, 2024. The patient is again seen today in room 364. The patient currently remains on amiodarone 0.5 mg/min. He is getting nasal O2 at 3 L. Labs, x-rays, and all m edications are reviewed. The patient does have some mild shortness of breath on exertion, no shortness of breath at rest. We will continue to follow. Prognosis is guarded. Time with Patient: Less than 30
[2024-04-10] MEDS: AMIODARONE 200 MG TAB PO SCH (11:42)
[2024-04-10] MEDS: SENNOSIDES 8.6 MG TAB PO STA (11:43)
--- NOTE | 2024-04-10 12:14 | P.PN ---
Subjective Progress Note Date: 04/10/24 Principal diagnosis: DEBRA secondary to ATN and cardiorenal syndrome Hosiptal course: Patient is a 58-year-old male with history of chronic diastolic CHF, hypertension, A. fib, morbid obesity, COPD presented to the ED with shortness of breath on 04/05 and he was in volume overload. He was diagnosed with Acute hypoxic respiratory failure, atrial fibrillation with a rapid ventricular rate, and cardiorenal syndrome. 04/08/24 Patient seen today. Denies any new complaints. Has a good urine output. He had JESS with cardioversion today for Afib with RVR. Labs today show Na 137, K 3.8, BUN 105, Creatinine 1.93, GFR 37. Chest xray done today shows much improved features of congestive failure. 04/09/24 Patient evaluated today. He had JESS with cardioversion yesterday. But his rhythm is back to AFib with RVR and he is currently on amiodarone drip per cardiology. Denies chest pain, shortness of breath. Has the carroll catheter in place and reports discomfort associated with it. Labs today show Na 136, K 3.8, BUN 102. creatinine 1.94 and GFR 37. 04/10/24 Patient was evaluated today in room 364. He complains of some palpitations. Amiodarone drip 0.5mg/hr will now be changed to oral amiodarone per cardiology. Denies chest pain,shortness of breath, abdominal pain. He notes discomfort with the carroll catheter. Labs today Na 131, K 4.5, BUN 96, creatinine 1.81, GFR 40. Objective - Vital Signs Vital signs: Vital Signs Temp 97.5 F L 04/10/24 08:00 Pulse 144 H 04/10/24 08:00 Resp 20 04/10/24 08:00 BP 156/91 04/10/24 08:00 Pulse Ox 95 04/10/24 08:00 FiO2 50 04/10/24 03:09 Intake & Output 04/09/24 04/10/24 04/10/24 18:59 06:59 18:59 Intake Total 853.059 726.672 200 Output Total 2125 1900 Balance -1271.941 -1173.328 200 Weight 150.3 kg 151.5 kg Intake: Intake, IV Titration 193.059 246.672 Amount Amiodarone 450 mg In 193.059 246.672 Dextrose 5% in Water 250 ml @ 0.5 MG/MIN 16.667 mls/hr IV .Q15H [facility] Rx#: [id number] Oral 660 480 200 Output: Urine 2124 1900 Other: Voiding Method Indwelling Catheter Indwelling Catheter Indwelling Catheter - Exam General: nontoxic, no distress, appears at stated age, obese Derm: warm, dry Cardiovascular: reg S1-S2 Lungs: diminished breath sounds b/l no accessory muscle use Abdominal: soft, non-tender to palpataion Extremities: varicose veins and venous stasis ulcer on LE b/l Neuro: Alert, Oriented - Labs CBC & Chem 7: 04/09/24 06:17 04/10/24 06:38 Labs: Abnormal Lab Results - Last 24 Hours (Table) 04/09/24 04/09/24 04/09/24 Range/Units 11:16 16:11 20:28 Sodium (137-145) mmol/L Chloride (98-107) mmol/L BUN (9-20) mg/dL Creatinine (0.66-1.25) mg/dL Glucose (74-99) mg/dL POC Glucose (mg/dL) 361 H 289 H 266 H (70-110) mg/dL 04/10/24 04/10/24 Range/Units 06:13 06:38 Sodium 131 L (137-145) mmol/L Chloride 93 L (98-107) mmol/L BUN 96 H (9-20) mg/dL Creatinine 1.81 H (0.66-1.25) mg/dL Glucose 252 H (74-99) mg/dL POC Glucose (mg/dL) 261 H (70-110) mg/dL Assessment and Plan Assessment: Acute kidney injury secondary to ATN secondary to cardiorenal syndrome. No hydronephrosis noted on kidney ultrasound done in December 2023. Creatinine 2.9 on admission and is 1.81 today. Renal fx worsened due to hemodynamic instability/afib w/rvr. S/p JESS with cardioversion 04/08/24. UA benign. Hypervolemic hyponatremia secondary to D5W in amiodarone drip. Na today 131. Chronic kidney disease stage IIIa with baseline creatinine 1.2-1.4 secondary to nephrosclerosis. Volume overload. Improving with diuresis. Hyperphosphatemia secondary to acute kidney injury. Phosphorus level 7.0 dated April 05, 2024 and 3.1 on 04/07/24. Resolved Morbid obesity. Acute hypoxic respiratory failure. Improved. Acute on chronic diastolic CHF Plan: Discontinue carroll catheter Monitor with bladder scan for urinary retention Continue torsemide 20 mg once daily. Continue maintenance potassium supplementation. Low-salt diet and 1500 cc fluid restriction. Continue to monitor renal function and urine output. Monitor BMP Amiodarone switched to PO per cardiology for AFib with RVR
--- NOTE | 2024-04-10 13:08 | P.PN ---
Subjective Progress Note Date: 04/10/24 patient is 58-year-old gentleman past medical history significant for congestive heart failure, atrial fibrillation, hypertension, hyperlipidemia, chronic kidney disease, COPD, and morbid obesity who presented the ER because of generalized debility and increasing weakness. Patient stated that he has been feeling like this for the last few weeks. Patient has been complaining of shortness of breath at rest as on exertion. Patient states that he is unable to get around. Denies any chest pain. There is no complaint of palpitations. Patient also complained of increased shakiness and tremors. Denies any fever or chills. There is no complaint of chest pain. There is no complaint orthopnea or PND. Because of the symptoms, patient presented to the ER Initial lab work done in the ER showed WBC 1.1, hemoglobin 15.6, platelet count 240, INR 1, sodium 133, potassium 5.6, chloride 96, BUN 119, creatinine 2.94 glucose 88, calcium 7.7, magnesium 2.6, bilirubin 1, troponin 0.017, proBNP 13,300 EKG done in the ER showed heart rate of 78, irregular rhythm, no ST segment elevation or depression seen, T-wave inversions seen in leads II, III and aVF. V1 to V4. Chest x-ray done in the ER showed mild bibasilar infiltrates, marked cardiomegaly CT head done showed no acute intracranial process CT cervical spine done showed no evidence of any cervical spine pathology X-ray pelvis does not show any evidence of fracture Patient admitted to internal medicine service 04/06. Patient seen and examined. Currently on BiPAP with a 50% FiO2. He is complaining of being short of breath on exertion. Denies any cough. Currently in A-fib, rate poorly controlled. Currently on Cardizem drip. 04/07. Patient seen and examined. Currently on 4 L of oxygen. Patient is diuresing well. Patient is anxious today. 04/08. Patient seen and examined. Patient underwent JESS with cardioversion today. Currently sinus rhythm. Said breathing has improved. 04/09. Patient seen and examined. Blood work done showed WBC 7.1, hemoglobin 16.7, sodium 136, potassium 3.8, BUN 102, creatinine 1.94. Continues to be tachycardic. Currently on amiodarone drip 04/10. Patient seen and examined. Patient continues to be tachycardic, currently off of IV amiodarone and switch to oral amiodarone patient is complaining of shortness of breath on exertion. REVIEW OF SYSTEMS: CONSTITUTIONAL: No fever, no malaise,. CARDIOVASCULAR: No chest pain, no palpitations, no syncope. PULMONARY: As mentioned above GASTROINTESTINAL: No diarrhea, no nausea, no vomiting, no abdominal pain. NEUROLOGICAL: No headaches, no weakness, PHYSICAL EXAMINATION: GENERAL: The patient is alert and oriented x3, not in any acute distress. Well developed, well nourished. HEENT: Pupils are round and equally reacting to light. EOMI. No scleral icterus. No conjunctival pallor. Normocephalic, atraumatic. No pharyngeal erythema. No thyromegaly. CARDIOVASCULAR: S1 and S2 present. No murmurs, rubs, or gallops. Tachycardic PULMONARY: Diminished breath sound at the bases bilaterally no wheezing or crackles. ABDOMEN: Soft, nontender, nondistended, normoactive bowel sounds. No palpable organomegaly. MUSCULOSKELETAL: No joint swelling or deformity. EXTREMITIES: No cyanosis, clubbing, or pedal edema. NEUROLOGICAL: Gross neurological examination did not reveal any focal deficits. SKIN: No rashes. Assessment and plan Acute hypoxic respiratory failure Acute kidney injury Hyperkalemia Hyponatremia Acute on chronic heart failure with preserved EF, 60 to 65% Persistent atrial fibrillation Hyperkalemia Hypertension Hyperlipidemia Chronic kidney disease COPD Morbid obesity: BMI 48.7 Obstructive sleep apnea, noncompliant with CPAP outpatient Monitor vital signs Monitor CBC Monitor CMP Continue telemetry monitoring Continue oxygen supplementation Continue BiPAP Continue breathing treatment strict I's and O's, daily weights Avoid nephrotoxic agents Status post JESS with cardioversion on 04/08 Continue oral Lopressor 100 mg twice a day Continue amiodarone 400 mg twice daily Continue Eliquis Continue torsemide Nephrology following Cardiology following Pulmonary following Labs and medication were reviewed.. Continue same treatment. Continue with symptomatic treatment. Resume home medication. Monitor labs and vitals. DVT and GI prophylaxis. Further recommendations as per clinical course of the patient Dictation was produced using [employer] dictation software. please excuse any grammatical, word or spelling errors. Objective - Vital Signs Vital signs: Vital Signs Temp 97.5 F L 04/10/24 08:00 Pulse 114 H 04/10/24 11:37 Resp 20 04/10/24 11:37 BP 138/85 04/10/24 11:37 Pulse Ox 95 04/10/24 11:37 FiO2 50 04/10/24 03:09 Intake & Output 04/09/24 04/10/24 04/10/24 18:59 06:59 18:59 Intake Total 853.059 726.672 200 Output Total 2125 1900 2400 Balance -1271.941 -1173.328 -2200 Weight 150.3 kg 151.5 kg Intake: Intake, IV Titration 193.059 246.672 Amount Amiodarone 450 mg In 193.059 246.672 Dextrose 5% in Water 250 ml @ 0.5 MG/MIN 16.667 mls/hr IV .Q15H [facility] Rx#: [id number] Oral 660 480 200 Output: Urine 2125 1900 2400 Other: Voiding Method Indwelling Catheter Indwelling Catheter Indwelling Catheter - Labs CBC & Chem 7: 04/09/24 06:17 04/10/24 06:38 Labs: Abnormal Lab Results - Last 24 Hours (Table) 04/09/24 04/09/24 04/10/24 Range/Units 16:11 20:28 06:13 Sodium (137-145) mmol/L Chloride (98-107) mmol/L BUN (9-20) mg/dL Creatinine (0.66-1.25) mg/dL Glucose (74-99) mg/dL POC Glucose (mg/dL) 289 H 266 H 261 H (70-110) mg/dL 04/10/24 04/10/24 Range/Units 06:38 11:08 Sodium 131 L (137-145) mmol/L Chloride 93 L (98-107) mmol/L BUN 96 H (9-20) mg/dL Creatinine 1.81 H (0.66-1.25) mg/dL Glucose 252 H (74-99) mg/dL POC Glucose (mg/dL) 293 H (70-110) mg/dL
[2024-04-10] MEDS: METOPROLOL TARTRATE 50 MG TAB PO SCH (15:20)
[2024-04-10 16:16] LABS: Glucose,Whole Blood 281 mg/dL (70-110)
[2024-04-10 19:51] LABS: Glucose,Whole Blood 350 mg/dL (70-110)
[2024-04-11 06:08] LABS: Glucose,Whole Blood 290 mg/dL (70-110)
[2024-04-11 06:50] LABS: HCT 52.5 % (39.0-53.0); HGB 17.1 gm/dL (13.0-17.5); MCH 28.8 pg (25.0-35.0); MCHC 32.6 g/dL (31.0-37.0); MCV 88.5 fL (80.0-100.0); Mean Platelet Volume 8.8; Platelet Count 151 k/uL (150-450); RBC 5.93 m/uL (4.30-5.90); RDW 14.9 % (11.5-15.5); WBC 17.8 k/uL (3.8-10.6)
[2024-04-11 07:38] LABS: ALT 25 U/L (4-49); AST 18 U/L (17-59); African American GFR (CKD) 43 (>60 ml/min/1.73 sqM); Albumin 3.9 g/dL (3.5-5.0); Alkaline Phosphatase 109 U/L (38-126); Anion Gap 8 mmol/L; Blood Urea Nitrogen 94 mg/dL (9-20); Calcium 9.1 mg/dL (8.4-10.2); Carbon Dioxide 33 mmol/L (22-30); Chloride 94 mmol/L (98-107); Glucose 284 mg/dL (74-99); Non-African American GFR(CKD) 37 (>60 ml/min/1.73 sqM); Potassium 4.5 mmol/L (3.5-5.1); Sodium 135 mmol/L (137-145); Total Bilirubin 0.8 mg/dL (0.2-1.3); Total Protein 6.6 g/dL (6.3-8.2)
--- NOTE | 2024-04-11 11:18 | P.PN ---
Subjective Progress Note Date: 04/11/24 Principal diagnosis: Shortness of breath. This is a 58-year-old white male with morbid obesity, chronic diastolic congestive heart failure, chronic obstructive pulmonary disease, chronic kidney disease, familiar to my service from previous admissions, patient presented to the ER with few days history of increased shortness of breath, weakness, generalized medical debility. No chest pain, no fever, no chills, no hemoptysis, workup in the ER included CBC that showed WBC count of 7.1 hemoglobin 15.6, abnormal potassium of 5.6 abnormal renal profile with a BUN of 119 creatinine 2.94 and abnormal BNP level of 13,300. On his initial arrival, patient was in moderate respiratory distress he was placed on BiPAP 14/6/50%, when I saw the patient I recommended an ABG that showed a pO2 of 68 pCO2 55 pH of 7.35 and this was on BiPAP. Chest x-ray showed evidence of mild interstitial edema and the patient is now on Lasix 60 mg IV push twice daily. Patient is on bronchodilators he is also on methylprednisolone 60 mg IV push every 6 hours. Progress note dated April 06, 2024. 58-year-old male seen today in room 364. He was seen in consultation yesterday. The patient has a history of chronic diastolic CHF, and chronic obstructive pulmonary disease among other things. Currently he is on 6 L nasal cannula. No IV fluids. He has a BiPAP device in the room, with settings of 14/6, and 50%. Clinically, the patient states that he starting to feel a bit better. His chest x-ray revealed mild interstitial edema. He was placed on Lasix. He is also getting bronchodilators and corticosteroids. Current laboratory data includes a completely normal CBC. Sodium 137, potassium 4.4, chlorides 97, CO2 34, BUN 97, creatinine 1.60. Glucose is 386. Progress note dated April 07, 2024. 58-year-old male seen in room 364. Currently, the patient is not receiving any IV fluids. The patient is currently on 4 L nasal cannula. He is walking around the room. He did use both BiPAP and nasal O2 last night. He used BiPAP for about 4 hours. His settings were 14/6, and 50%. Current labs include a white count 10.6, hemoglobin 16.3, hematocrit 48.2, and a normal platelet count. Sodium 137, potassium 3.8, chlorides 98, CO2 36, BUN 96, creatinine 1.49. Glucose is 210. Progress note dated April 08, 2024. 58-year-old male who is seen today in room 364. The patient was to have a transesophageal echocardiogram, and cardioversion, by cardiology today. He remains on 4 L of oxygen by nasal cannula. According to the nurses, the patient had a relatively uneventful night. Laboratory data includes a sodium 137, potassium 3.8, chlorides 94, CO2 35, BUN 105, creatinine 1.93. Glucose is 242. Calcium 9.4. Progress note dated April 09, 2024. The patient had a transesophageal echocardiogram and cardioversion, yesterday, but unfortunately, he is back in atrial fibrillation. He is seen today in room 364. He is on amiodarone at 0.5 mg/min. He is getting nasal O2 at 3 L by nasal cannula. The patient did spend some time last night on BiPAP, with settings of 14/6, 50%. Current laboratory data includes a white count 7.9, hemoglobin 16.7, hematocrit 52.3, and a platelet count is normal. Sodium 136, potassium 3.8, chlorides 91, CO2 38, BUN 102, and creatinine 1.94. Glucose is 361. Albumin is 4. Progress note dated April 10, 2024. 58-year-old male seen again in room 364. The patient continues on oxygen, at 3 L. In addition, because of ongoing atrial fibrillation and RVR, the patient continues on amiodarone 0.5 mg/min. The patient does have some mild shortness of breath on exertion, no other complaints. He denies any chest pain. Current labs include a sodium 131, potassium 4.5, chlorides 93, CO2 29, BUN 96, and creatinine 1.81. Calcium is 8.8. Glucose is 293. Progress note dated April 11, 2024. 58-year-old male seen in room 364. The patient is sitting on the side of his bed. He is in no acute distress. The patient continues on 3 L nasal cannula. No IV fluids. Yesterday he was on amiodarone drip. That has been turned off. He does use BiPAP at nighttime, with settings of 14/6, and 50%. Current labs with a white count 17.8, hemoglobin 17.1, hematocrit 52.5, and a platelet count of 151,000. Sodium 135, potassium 4.5, chloride 94, CO2 33, BUN 94, creatinine 1.92. Glucose is 290. Objective - Vital Signs Vital signs: Vital Signs Temp 97.7 F 04/11/24 08:35 Pulse 86 04/11/24 08:36 Resp 19 04/11/24 08:35 BP 149/86 04/11/24 08:35 Pulse Ox 96 04/11/24 08:35 FiO2 50 04/10/24 23:53 Intake & Output 04/10/24 04/11/24 04/11/24 18:59 06:59 18:59 Intake Total 600 1188 118 Output Total 2825 1825 Balance -4106 -717 118 Weight 153.6 kg Intake: Oral 600 1188 118 Output: Urine 2825 1825 Other: Voiding Method Urinal Urinal Urinal # Voids 2 - Exam No acute distress, oriented 3. No audible wheezing or use of accessory muscles. Currently on 3 L nasal cannula. HEENT examination is grossly unremarkable. Mucous membranes are moist. No oral lesions. Neck supple. Full range of motion. No adenopathy thyromegaly or neck vein di stention. Cardiovascular examination reveals an irregular rhythm and rate. S1-S2 normal. No S3 or S4. No discernible murmur noted. Lungs reveal diminished bilateral breath sounds. Minimal crackles and rhonchi noted. Abdomen soft bowel sounds are heard. No masses or tenderness. Extremities reveal 3+ bilateral lower extremity pitting edema. Skin reveals multiple superficial venous stasis ulcers. Neurologic examination is brief but nonfocal. - Labs CBC & Chem 7: 04/11/24 06:10 04/11/24 06:10 Labs: Abnormal Lab Results - Last 24 Hours (Table) 04/10/24 04/10/24 04/11/24 Range/Units 16:15 19:49 06:07 WBC (3.8-10.6) k/uL RBC (4.30-5.90) m/uL Sodium (137-145) mmol/L Chloride (98-107) mmol/L Carbon Dioxide (22-30) mmol/L BUN (9-20) mg/dL Creatinine (0.66-1.25) mg/dL Glucose (74-99) mg/dL POC Glucose (mg/dL) 281 H 350 H 290 H (70-110) mg/dL 04/11/24 04/11/24 Range/Units 06:10 06:10 WBC 17.8 H (3.8-10.6) k/uL RBC 5.93 H (4.30-5.90) m/uL Sodium 135 L (137-145) mmol/L Chloride 94 L (98-107) mmol/L Carbon Dioxide 33 H (22-30) mmol/L BUN 94 H (9-20) mg/dL Creatinine 1.92 H (0.66-1.25) mg/dL Glucose 284 H (74-99) mg/dL POC Glucose (mg/dL) (70-110) mg/dL Assessment and Plan Assessment: Acute on chronic hypoxemic and hypercapnic respiratory failure, secondary to diastolic CHF exacerbation. Atrial fibrillation with rapid ventricular response, S/P JESS/cardioversion, April 08, 2024. Very severe COPD, with an FEV1 that is 22% of predicted. Obstructive sleep apnea syndrome, patient noncompliant with noninvasive positive airway pressure device. Morbid obesity with a BMI of 48.7 kg/m. Acute on chronic kidney disease. Hyperkalemia. Chronic lower extremity edema, with multiple venous stasis ulcers. History of hypertension. History of dyslipidemia. Former tobacco dependence. Plan: Plan dated April 06, 2024. The patient continues on nasal O2 at 6 L. BiPAP device is in the room with settings of 15/6 and 50%. The patient is not receiving any IV fluids. We will continue to follow make recommendations along the way. The patient continues with IV Lasix, bronchodilators, and factor Xa inhibitor. We will continue to follow make recommendations. Prognosis is poor. Labs, x-rays, and all medications have been reviewed. Plan dated April 07, 2024. The patient is doing much better today. His oxygen requirements is gone from 6 L, down to 4. He did use BiPAP last night for about 4 hours, with settings of 14/6, 50%. Labs, x-rays, and all medications are reviewed. The patient was walking around the room without distress. There was no conversational dyspnea, audible wheezing, or use of accessory muscles. We will continue to follow. Prognosis is guarded. Plan date is April 08, 2024. The patient is scheduled to have a transesophageal echocardiogram, and cardioversion, done by cardiology today. The patient continues on 4 L of oxygen. Labs, x-rays, and medications are reviewed. The patient's overall prognosis remains guarded. We will continue to follow the patient, and make recommendations where appropriate. Plan dated April 09, 2024. Unfortunately, the patient is back in atrial fibrillation with a rapid ventricular response. He is currently on 3 L of oxygen. The patient is also getting amiodarone at 0.5 mg/min. He does spend the night times, on BiPAP, with settings of 14/6, and 50%. Labs, x-rays, medications are reviewed. We will continue to follow. Prognosis is very guarded. No additional recommendations at this time. Plan dated April 10, 2024. The patient is again seen today in room 364. The patient currently remains on amiodarone 0.5 mg/min. He is getting nasal O2 at 3 L. Labs, x-rays, and all medications are reviewed. The patient does have some mild shortness of breath on exertion, no shortness of breath at rest. We will continue to follow. Prognosis is guarded. Plan dated April 11, 2024. The patient is again seen today in room 364. The patient appears to be relatively stable. He denies any chest pain or pressure. Likewise, he denies any shortness of breath, cough, wheezing, chest tightness, or phlegm production. The patient does use BiPAP at nighttime, with settings of 14/6, 50%. Currently he is on 3 L. Labs, x-rays, and all medications are reviewed. We will continue to follow the patient, make recommendations along the way. Prognosis is guarded. Dictation was produced using [employer] software. Please excuse any grammatical, word or spelling errors. Time with Patient: Less than 30
[2024-04-11 12:08] LABS: Glucose,Whole Blood 365 mg/dL (70-110)
--- NOTE | 2024-04-11 12:38 | P.PN ---
Subjective Progress Note Date: 04/11/24 Patient is seen in follow-up for acute kidney injury on chronic kidney disease. Renal function improving. On PO torsemide Currently on room air. No active complaints. Vital signs are stable. General: No acute distress. HEENT: Head exam is unremarkable. LUNGS: No audible rhonchi or wheezes. HEART: Rate and Rhythm are regular. ABDOMEN: Obese, no distention. EXTREMITITES: Trace edema. Objective - Vital Signs Vital signs: Vital Signs Temp 98 F 04/11/24 04:00 Pulse 86 04/11/24 08:36 Resp 16 04/11/24 04:00 BP 138/85 04/11/24 04:00 Pulse Ox 94 L 04/11/24 08:22 FiO2 50 04/10/24 23:53 Intake & Output 04/10/24 04/11/24 04/11/24 18:59 06:59 18:59 Intake Total 600 1188 118 Output Total 2825 1825 Balance -7609 -353 118 Weight 153.6 kg Intake: Oral 600 1188 118 Output: Urine 2825 1825 Other: Voiding Method Urinal Urinal # Voids 2 - Labs CBC & Chem 7: 04/11/24 06:10 04/11/24 06:10 Labs: Abnormal Lab Results - Last 24 Hours (Table) 04/10/24 04/10/24 04/10/24 Range/Units 11:08 16:15 19:49 WBC (3.8-10.6) k/uL RBC (4.30-5.90) m/uL Sodium (137-145) mmol/L Chloride (98-107) mmol/L Carbon Dioxide (22-30) mmol/L BUN (9-20) mg/dL Creatinine (0.66-1.25) mg/dL Glucose (74-99) mg/dL POC Glucose (mg/dL) 293 H 281 H 350 H (70-110) mg/dL 04/11/24 04/11/24 04/11/24 Range/Units 06:07 06:10 06:10 WBC 17.8 H (3.8-10.6) k/uL RBC 5.93 H (4.30-5.90) m/uL Sodium 135 L (137-145) mmol/L Chloride 94 L (98-107) mmol/L Carbon Dioxide 33 H (22-30) mmol/L BUN 94 H (9-20) mg/dL Creatinine 1.92 H (0.66-1.25) mg/dL Glucose 284 H (74-99) mg/dL POC Glucose (mg/dL) 290 H (70-110) mg/dL Assessment and Plan Assessment: 1. Acute kidney injury secondary to ATN secondary to cardiorenal syndrome. No hydronephrosis noted on kidney ultrasound done in December 2023. Creatinine 2.9 now stable at 1.9. UA benign. 2. A-fib with RVR status post Cardizem drip. Now on oral Cardizem and metoprolol. 3. Chronic kidney disease stage IIIa with baseline creatinine 1.2-1.4 secondary to nephrosclerosis. 4. Volume overload. Improving with diuresis. 5. Hyperphosphatemia secondary to acute kidney injury. Phosphorus level 7.0 dated April 05, 2024. 6. Morbid obesity. 7. Acute hypoxic respiratory failure. Improved. 8. Acute on chronic diastolic CHF. Plan: Decrease Torsemide 10 mg once daily as urine output still very high. Add maintenance potassium supplementation. Low-salt diet and 1500 cc fluid restriction. Continue to monitor renal function and urine output.
--- NOTE | 2024-04-11 13:35 | P.PN ---
Subjective Progress Note Date: 04/11/24 patient is 58-year-old gentleman past medical history significant for congestive heart failure, atrial fibrillation, hypertension, hyperlipidemia, chronic kidney disease, COPD, and morbid obesity who presented the ER because of generalized debility and increasing weakness. Patient stated that he has been feeling like this for the last few weeks. Patient has been complaining of shortness of breath at rest as on exertion. Patient states that he is unable to get around. Denies any chest pain. There is no complaint of palpitations. Patient also complained of increased shakiness and tremors. Denies any fever or chills. There is no complaint of chest pain. There is no complaint orthopnea or PND. Because of the symptoms, patient presented to the ER Initial lab work done in the ER showed WBC 1.1, hemoglobin 15.6, platelet count 240, INR 1, sodium 133, potassium 5.6, chloride 96, BUN 119, creatinine 2.94 glucose 88, calcium 7.7, magnesium 2.6, bilirubin 1, troponin 0.017, proBNP 13,300 EKG done in the ER showed heart rate of 78, irregular rhythm, no ST segment elevation or depression seen, T-wave inversions seen in leads II, III and aVF. V1 to V4. Chest x-ray done in the ER showed mild bibasilar infiltrates, marked cardiomegaly CT head done showed no acute intracranial process CT cervical spine done showed no evidence of any cervical spine pathology X-ray pelvis does not show any evidence of fracture Patient admitted to internal medicine service 04/06. Patient seen and examined. Currently on BiPAP with a 50% FiO2. He is complaining of being short of breath on exertion. Denies any cough. Currently in A-fib, rate poorly controlled. Currently on Cardizem drip. 04/07. Patient seen and examined. Currently on 4 L of oxygen. Patient is diuresing well. Patient is anxious today. 04/08. Patient seen and examined. Patient underwent JESS with cardioversion today. Currently sinus rhythm. Said breathing has improved. 04/09. Patient seen and examined. Blood work done showed WBC 7.1, hemoglobin 16.7, sodium 136, potassium 3.8, BUN 102, creatinine 1.94. Continues to be tachycardic. Currently on amiodarone drip 04/10. Patient seen and examined. Patient continues to be tachycardic, currently off of IV amiodarone and switch to oral amiodarone patient is complaining of shortness of breath on exertion. 04/11 patient seen and examined. Patient complaining of palpitations. Gets short of breath on exertion. REVIEW OF SYSTEMS: CONSTITUTIONAL: No fever, no malaise,. CARDIOVASCULAR: No chest pain, no palpitations, no syncope. PULMONARY: As mentioned above GASTROINTESTINAL: No diarrhea, no nausea, no vomiting, no abdominal pain. NEUROLOGICAL: No headaches, no weakness, PHYSICAL EXAMINATION: GENERAL: The patient is alert and oriented x3, not in any acute distress. Well developed, well nourished. HEENT: Pupils are round and equally reacting to light. EOMI. No scleral icterus. No conjunctival pallor. Normocephalic, atraumatic. No pharyngeal erythema. No thyromegaly. CARDIOVASCULAR: S1 and S2 present. No murmurs, rubs, or gallops. Tachycardic PULMONARY: Diminished breath sound at the bases bilaterally no wheezing or crackles. ABDOMEN: Soft, nontender, nondistended, normoactive bowel sounds. No palpable organomegaly. MUSCULOSKELETAL: No joint swelling or deformity. EXTREMITIES: No cyanosis, clubbing, or pedal edema. NEUROLOGICAL: Gross neurological examination did not reveal any focal deficits. SKIN: No rashes. Assessment and plan Acute hypoxic respiratory failure Acute kidney injury Hyperkalemia Hyponatremia Acute on chronic heart failure with preserved EF, 60 to 65% Persistent atrial fibrillation Hyperkalemia Hypertension Hyperlipidemia Chronic kidney disease COPD Morbid obesity: BMI 48.7 Obstructive sleep apnea, noncompliant with CPAP outpatient Monitor vital signs Monitor CBC Monitor CMP Continue telemetry monitoring Continue oxygen supplementation Continue BiPAP Continue breathing treatment strict I's and O's, daily weights Avoid nephrotoxic agents Status post JESS with cardioversion on 04/08 Continue oral Lopressor 100 mg twice a day Continue amiodarone 400 mg twice daily Continue Eliquis Continue torsemide, dose decreased to 10 mg Nephrology following Cardiology following Pulmonary following Labs and medication were reviewed.. Continue same treatment. Continue with symptomatic treatment. Resume home medication. Monitor labs and vitals. DVT and GI prophylaxis. Further recommendations as per clinical course of the patient Dictation was produced using [employer] dictation software. please excuse any gramma tical, word or spelling errors. Objective - Vital Signs Vital signs: Vital Signs Temp 98.0 F 04/11/24 11:15 Pulse 83 04/11/24 11:44 Resp 19 04/11/24 11:15 BP 156/105 04/11/24 11:15 Pulse Ox 96 04/11/24 11:15 FiO2 50 04/10/24 23:53 Intake & Output 04/10/24 04/11/24 04/11/24 18:59 06:59 18:59 Intake Total 600 1188 118 Output Total 2828 182 1600 Balance -3716 -349 -6585 Weight 153.6 kg Intake: Oral 600 1188 118 Output: Urine 2826 0955 1600 Other: Voiding Method Urinal Urinal Urinal # Voids 2 - Labs CBC & Chem 7: 04/11/24 06:10 04/11/24 06:10 Labs: Abnormal Lab Results - Last 24 Hours (Table) 04/10/24 04/10/24 04/11/24 Range/Units 16:15 19:49 06:07 WBC (3.8-10.6) k/uL RBC (4.30-5.90) m/uL Sodium (137-145) mmol/L Chloride (98-107) mmol/L Carbon Dioxide (22-30) mmol/L BUN (9-20) mg/dL Creatinine (0.66-1.25) mg/dL Glucose (74-99) mg/dL POC Glucose (mg/dL) 281 H 350 H 290 H (70-110) mg/dL 04/11/24 04/11/24 04/11/24 Range/Units 06:10 06:10 12:07 WBC 17.8 H (3.8-10.6) k/uL RBC 5.93 H (4.30-5.90) m/uL Sodium 135 L (137-145) mmol/L Chloride 94 L (98-107) mmol/L Carbon Dioxide 33 H (22-30) mmol/L BUN 94 H (9-20) mg/dL Creatinine 1.92 H (0.66-1.25) mg/dL Glucose 284 H (74-99) mg/dL POC Glucose (mg/dL) 365 H (70-110) mg/dL
[2024-04-11 16:53] LABS: Glucose,Whole Blood 286 mg/dL (70-110)
--- NOTE | 2024-04-11 17:54 | P.PN ---
Subjective Progress Note Date: 04/11/24 HISTORY OF PRESENTING ILLNESS 58-year-old male with past medical history of morbid obesity, HFpEF, atrial fibrillation, hypertension, dyslipidemia, CKD, COPD with FEV1 of only 22%, known to Dr. Dickerson outpatient. This time he presented to the hospital because of increased worsening shortness of breath, palpitations and increased shakiness. On admission he was noticed to be in atrial fibrillation with RVR for which cardiology was consulted. Prior cardiac testing Echocardiogram November 2023, EF 60%, severe LA dilatation Lexiscan July 2022, negative for reversible ischemia April 07, 2024 WBC 10.6, hemoglobin 16, BUN 96, creatinine 1.49 Heart rate 150s, A-fib RVR, BP 131/85 Patient is still symptomatic with A-fib RVR. April 11, 2024 Patient's heart rate is better controlled he is resting around 90 bpm, shortness of breath is improved significantly. He is not having any wheezing in bilateral lung gimenez. PHYSICAL EXAMINATION Vital signs reviewed. Head: Normocephalic. Eyes: Sclerae nonicteric. Neck: Brisk carotid upstroke, difficult to assess jugular venous distention due to thick neck Lungs: Diminished breath sounds, no significant wheezing, minimal crackles in bilateral bases. Heart: Irregularly irregular, no significant murmurs appreciated Abdomen: Soft nontender, positive bowel sounds. Extremities: Chronic lower extremity swelling with chronic skin changes and venous ulcers Neuro: Alert, oritented, no focal deficits. Detailed neuro exam was not performed. ASSESSMENT Acute hypoxic and hypercapnic respiratory failure A-fib RVR, persistent Acute HFpEF exacerbation Advanced COPD, in exacerbation DEBRA on CKD Hypertension Hyperlipidemia Morbid obesity Chronic venous insufficiency Noncompliance Prior history of a flutter RVR with CTI ablation in 2021 PLAN Increase metoprolol to 150 mg twice daily Continue amiodarone 400 mg twice daily. Reduce dose of amiodarone to 200 mg twice daily on 04/17/2024. Starting 04/14/2024, reduce amiodarone to 200 mg daily. Continue Aldactone 12.5 mg daily, torsemide 10 mg daily, Farxiga 10 mg daily Continue Eliquis 5 mg twice daily If patient's heart rate is controlled, patient is cleared from cardiology to be discharged on rate control strategy tomorrow. He would recommend close outpatient follow-up with primary senior web applications developer Dr. Dickerson. He would benefit from a reattempted cardioversion once he is loaded with amiodarone. Patient does have a prior history of noncompliance. Objective - Vital Signs Vital signs: Vital Signs Temp 98.2 F 04/11/24 15:44 Pulse 85 04/11/24 16:04 Resp 18 04/11/24 15:44 BP 142/84 04/11/24 15:44 Pulse Ox 97 04/11/24 15:44 FiO2 50 04/10/24 23:53 Intake & Output 04/10/24 04/11/24 04/11/24 18:59 06:59 18:59 Intake Total 600 1188 118 Output Total 2825 1827 2800 Balance -5616 -310 -2796 Weight 153.6 kg Intake: Oral 600 1188 118 Output: Urine 2825 1825 2800 Other: Voiding Method Urinal Urinal Urinal # Voids 2 - Labs CBC & Chem 7: 04/11/24 06:10 04/11/24 06:10 Labs: Abnormal Lab Results - Last 24 Hours (Table) 04/10/24 04/11/24 04/11/24 Range/Units 19:49 06:07 06:10 WBC (3.8-10.6) k/uL RBC (4.30-5.90) m/uL Sodium 135 L (137-145) mmol/L Chloride 94 L (98-107) mmol/L Carbon Dioxide 33 H (22-30) mmol/L BUN 94 H (9-20) mg/dL Creatinine 1.92 H (0.66-1.25) mg/dL Glucose 284 H (74-99) mg/dL POC Glucose (mg/dL) 350 H 290 H (70-110) mg/dL 04/11/24 04/11/24 04/11/24 Range/Units 06:10 12:07 16:51 WBC 17.8 H (3.8-10.6) k/uL RBC 5.93 H (4.30-5.90) m/uL Sodium (137-145) mmol/L Chloride (98-107) mmol/L Carbon Dioxide (22-30) mmol/L BUN (9-20) mg/dL Creatinine (0.66-1.25) mg/dL Glucose (74-99) mg/dL POC Glucose (mg/dL) 365 H 286 H (70-110) mg/dL
[2024-04-11] MEDS: METOPROLOL TARTRATE 50 MG TAB PO SCH (21:23)
[2024-04-11] MEDS: methylPREDNISolone SOD SUCCI 125 MG/2 ML VIAL IV SCH (21:23)
[2024-04-11 21:42] LABS: Glucose,Whole Blood 369 mg/dL (70-110)
[2024-04-12 06:05] LABS: Glucose,Whole Blood 271 mg/dL (70-110)
[2024-04-12] MEDS: TORSEMIDE 20 MG TAB PO SCH (09:05)
[2024-04-12 10:56] LABS: African American GFR (CKD) 54 (>60 ml/min/1.73 sqM); Anion Gap 3 mmol/L; Blood Urea Nitrogen 80 mg/dL (9-20); Calcium 8.8 mg/dL (8.4-10.2); Carbon Dioxide 35 mmol/L (22-30); Chloride 97 mmol/L (98-107); Glucose 229 mg/dL (74-99); Non-African American GFR(CKD) 46 (>60 ml/min/1.73 sqM); Potassium 4.9 mmol/L (3.5-5.1); Sodium 135 mmol/L (137-145)
--- NOTE | 2024-04-12 11:23 | P.PN ---
Subjective Progress Note Date: 04/12/24 HISTORY OF PRESENTING ILLNESS 58-year-old male with past medical history of morbid obesity, HFpEF, atrial fibrillation, hypertension, dyslipidemia, CKD, COPD with FEV1 of only 22%, known to Dr. Dickerson outpatient. This time he presented to the hospital because of increased worsening shortness of breath, palpitations and increased shakiness. On admission he was noticed to be in atrial fibrillation with RVR for which cardiology was consulted. Prior cardiac testing Echocardiogram November 2023, EF 60%, severe LA dilatation Lexiscan July 2022, negative for reversible ischemia April 07, 2024 WBC 10.6, hemoglobin 16, BUN 96, creatinine 1.49 Heart rate 150s, A-fib RVR, BP 131/85 Patient is still symptomatic with A-fib RVR. April 11, 2024 Patient's heart rate is better controlled he is resting around 90 bpm, shortness of breath is improved significantly. He is not having any wheezing in bilateral lung gimenez. April 12, 2024 Blood pressure 146/85, heart rate in 90s, continues to be in atrial fibrillation but rate controlled No new cardiovascular symptoms. BUN 80, creatinine 1.6 creatinine has improved than before. Hemoglobin stable, no concerns of bleeding. PHYSICAL EXAMINATION Vital signs reviewed. Head: Normocephalic. Eyes: Sclerae nonicteric. Neck: Brisk carotid upstroke, difficult to assess jugular venous distention due to thick neck Lungs: Diminished breath sounds, no significant wheezing, minimal crackles in bilateral bases. Heart: Irregularly irregular, no significant murmurs appreciated Abdomen: Soft nontender, positive bowel sounds. Extremities: Chronic lower extremity swelling with chronic skin changes and venous ulcers Neuro: Alert, oritented, no focal deficits. Detailed neuro exam was not performed. ASSESSMENT Acute hypoxic and hypercapnic respiratory failure A-fib RVR, persistent Acute HFpEF exacerbation Advanced COPD, in exacerbation DEBRA on CKD Hypertension Hyperlipidemia Morbid obesity Chronic venous insufficiency Noncompliance Prior history of a flutter RVR with CTI ablation in 2021 PLAN Continue 150 mg twice daily Continue amiodarone 400 mg twice daily. Reduce dose of amiodarone to 200 mg twice daily on 04/17/2024. Starting 04/14/2024, reduce amiodarone to 200 mg daily. Continue Aldactone 12.5 mg daily, torsemide 10 mg daily, Farxiga 10 mg daily Continue Eliquis 5 mg twice daily Would recommend close outpatient follow-up with primary electronic gluer Dr. Dickerson. He would benefit from a reattempted cardioversion once he is loaded with amiodarone. Patient does have a prior history of noncompliance. Patient is okay to be discharged on rate control strategy from cardiovascular standpoint. Cardiology team will sign off. Please reconsult us in case of any question. Objective - Vital Signs Vital signs: Vital Signs Temp 98.0 F 04/12/24 08:00 Pulse 108 H 04/12/24 08:19 Resp 19 04/12/24 08:00 BP 146/85 04/12/24 08:00 Pulse Ox 96 04/12/24 08:00 FiO2 50 04/10/24 23:53 Intake & Output 04/11/24 04/12/24 04/12/24 18:59 06:59 18:59 Intake Total 236 1173 Output Total 2800 2000 1000 Balance -2564 -827 -1000 Weight 153.7 kg Intake: Oral 236 1173 Output: Urine 2800 2000 1000 Other: Voiding Method Urinal Urinal Urinal - Labs CBC & Chem 7: 04/11/24 06:10 04/12/24 10:17 Labs: Abnormal Lab Results - Last 24 Hours (Table) 04/11/24 04/11/24 04/11/24 Range/Units 12:07 16:51 21:40 Sodium (137-145) mmol/L Chloride (98-107) mmol/L Carbon Dioxide (22-30) mmol/L BUN (9-20) mg/dL Creatinine (0.66-1.25) mg/dL Glucose (74-99) mg/dL POC Glucose (mg/dL) 365 H 286 H 369 H (70-110) mg/dL 04/12/24 04/12/24 Range/Units 06:04 10:17 Sodium 135 L (137-145) mmol/L Chloride 97 L (98-107) mmol/L Carbon Dioxide 35 H (22-30) mmol/L BUN 80 H (9-20) mg/dL Creatinine 1.60 H (0.66-1.25) mg/dL Glucose 229 H (74-99) mg/dL POC Glucose (mg/dL) 271 H (70-110) mg/dL
--- NOTE | 2024-04-12 11:24 | P.PN ---
Subjective Progress Note Date: 04/12/24 Patient is seen in follow-up for acute kidney injury on chronic kidney disease. Renal function improving. On PO torsemide Currently on room air. No active complaints. Vital signs are stable. General: No acute distress. HEENT: Head exam is unremarkable. LUNGS: No audible rhonchi or wheezes. HEART: Rate and Rhythm are regular. ABDOMEN: Obese, no distention. EXTREMITITES: Trace edema. Objective - Vital Signs Vital signs: Vital Signs Temp 98.0 F 04/12/24 08:00 Pulse 108 H 04/12/24 08:19 Resp 19 04/12/24 08:00 BP 146/85 04/12/24 08:00 Pulse Ox 96 04/12/24 08:00 FiO2 50 04/10/24 23:53 Intake & Output 04/11/24 04/12/24 04/12/24 18:59 06:59 18:59 Intake Total 236 1173 Output Total 2800 2000 1000 Balance -2564 -827 -1000 Weight 153.7 kg Intake: Oral 236 1173 Output: Urine 2800 2000 1000 Other: Voiding Method Urinal Urinal Urinal - Labs CBC & Chem 7: 04/11/24 06:10 04/12/24 10:17 Labs: Abnormal Lab Results - Last 24 Hours (Table) 04/11/24 04/11/24 04/11/24 Range/Units 12:07 16:51 21:40 POC Glucose (mg/dL) 365 H 286 H 369 H (70-110) mg/dL 04/12/24 Range/Units 06:04 POC Glucose (mg/dL) 271 H (70-110) mg/dL Assessment and Plan Assessment: 1. Acute kidney injury secondary to ATN secondary to cardiorenal syndrome. No hydronephrosis noted on kidney ultrasound done in December 2023. Creatinine 2.9 now improved to 1.6 today. UA benign. 2. A-fib with RVR status post Cardizem drip. Now on oral Cardizem and metoprolol. 3. Chronic kidney disease stage IIIa with baseline creatinine 1.2-1.4 secondary to nephrosclerosis. 4. Volume overload. Improving with diuresis. 5. Hyperphosphatemia secondary to acute kidney injury. Phosphorus level 7.0 dated April 05, 2024. 6. Morbid obesity. 7. Acute hypoxic respiratory failure. Improved. 8. Acute on chronic diastolic CHF. Plan: Torsemide 10 mg once daily Low-salt diet and 1500 cc fluid restriction. Continue to monitor renal function and urine output.
--- NOTE | 2024-04-12 11:24 | P.PN ---
Subjective Progress Note Date: 04/12/24 Principal diagnosis: Shortness of breath. This is a 58-year-old white male with morbid obesity, chronic diastolic congestive heart failure, chronic obstructive pulmonary disease, chronic kidney disease, familiar to my service from previous admissions, patient presented to the ER with few days history of increased shortness of breath, weakness, generalized medical debility. No chest pain, no fever, no chills, no hemoptysis, workup in the ER included CBC that showed WBC count of 7.1 hemoglobin 15.6, abnormal potassium of 5.6 abnormal renal profile with a BUN of 119 creatinine 2.94 and abnormal BNP level of 13,300. On his initial arrival, patient was in moderate respiratory distress he was placed on BiPAP 14/6/50%, when I saw the patient I recommended an ABG that showed a pO2 of 68 pCO2 55 pH of 7.35 and this was on BiPAP. Chest x-ray showed evidence of mild interstitial edema and the patient is now on Lasix 60 mg IV push twice daily. Patient is on bronchodilators he is also on methylprednisolone 60 mg IV push every 6 hours. Progress note dated April 06, 2024. 58-year-old male seen today in room 364. He was seen in consultation yesterday. The patient has a history of chronic diastolic CHF, and chronic obstructive pulmonary disease among other things. Currently he is on 6 L nasal cannula. No IV fluids. He has a BiPAP device in the room, with settings of 14/6, and 50%. Clinically, the patient states that he starting to feel a bit better. His chest x-ray revealed mild interstitial edema. He was placed on Lasix. He is also getting bronchodilators and corticosteroids. Current laboratory data includes a completely normal CBC. Sodium 137, potassium 4.4, chlorides 97, CO2 34, BUN 97, creatinine 1.60. Glucose is 386. Progress note dated April 07, 2024. 58-year-old male seen in room 364. Currently, the patient is not receiving any IV fluids. The patient is currently on 4 L nasal cannula. He is walking around the room. He did use both BiPAP and nasal O2 last night. He used BiPAP for about 4 hours. His settings were 14/6, and 50%. Current labs include a white count 10.6, hemoglobin 16.3, hematocrit 48.2, and a normal platelet count. Sodium 137, potassium 3.8, chlorides 98, CO2 36, BUN 96, creatinine 1.49. Glucose is 210. Progress note dated April 08, 2024. 58-year-old male who is seen today in room 364. The patient was to have a transesophageal echocardiogram, and cardioversion, by cardiology today. He remains on 4 L of oxygen by nasal cannula. According to the nurses, the patient had a relatively uneventful night. Laboratory data includes a sodium 137, potassium 3.8, chlorides 94, CO2 35, BUN 105, creatinine 1.93. Glucose is 242. Calcium 9.4. Progress note dated April 09, 2024. The patient had a transesophageal echocardiogram and cardioversion, yesterday, but unfortunately, he is back in atrial fibrillation. He is seen today in room 364. He is on amiodarone at 0.5 mg/min. He is getting nasal O2 at 3 L by nasal cannula. The patient did spend some time last night on BiPAP, with settings of 14/6, 50%. Current laboratory data includes a white count 7.9, hemoglobin 16.7, hematocrit 52.3, and a platelet count is normal. Sodium 136, potassium 3.8, chlorides 91, CO2 38, BUN 102, and creatinine 1.94. Glucose is 361. Albumin is 4. Progress note dated April 10, 2024. 58-year-old male seen again in room 364. The patient continues on oxygen, at 3 L. In addition, because of ongoing atrial fibrillation and RVR, the patient continues on amiodarone 0.5 mg/min. The patient does have some mild shortness of breath on exertion, no other complaints. He denies any chest pain. Current labs include a sodium 131, potassium 4.5, chlorides 93, CO2 29, BUN 96, and creatinine 1.81. Calcium is 8.8. Glucose is 293. Progress note dated April 11, 2024. 58-year-old male seen in room 364. The patient is sitting on the side of his bed. He is in no acute distress. The patient continues on 3 L nasal cannula. No IV fluids. Yesterday he was on amiodarone drip. That has been turned off. He does use BiPAP at nighttime, with settings of 14/6, and 50%. Current labs with a white count 17.8, hemoglobin 17.1, hematocrit 52.5, and a platelet count of 151,000. Sodium 135, potassium 4.5, chloride 94, CO2 33, BUN 94, creatinine 1.92. Glucose is 290. Progress note dated April 12, 2024. 58-year-old male who is seen today in room 364. The patient remains on O2 at 3 L. He does use BiPAP at nighttime, with settings of 14/6, and 50%. The patient continues in atrial fibrillation. His lungs are clear to auscultation on examination. Labs include sodium 135, potassium 4.9, chlorides 97, CO2 35, BUN 80, creatinine 1.60. Glucose is 229. Calcium is 8.8. Objective - Vital Signs Vital signs: Vital Signs Temp 98.0 F 04/12/24 08:00 Pulse 108 H 04/12/24 08:19 Resp 19 04/12/24 08:00 BP 146/85 04/12/24 08:00 Pulse Ox 96 04/12/24 08:00 FiO2 50 04/10/24 23:53 Intake & Output 04/11/24 04/12/24 04/12/24 18:59 06:59 18:59 Intake Total 236 1173 Output Total 2800 2000 1000 Balance -2564 -827 -1000 Weight 153.7 kg Intake: Oral 236 1173 Output: Urine 2800 1999 1000 Other: Voiding Method Urinal Urinal Urinal - Exam No acute distress, oriented 3. No audible wheezing or use of accessory muscles. Currently on 3 L nasal cannula. HEENT examination is grossly unremarkable. Mucous membranes are moist. No oral lesions. Neck supple. Full range of motion. No adenopathy thyromegaly or neck vein di stention. Cardiovascular examination reveals an irregular rhythm and rate. S1-S2 normal. No S3 or S4. No discernible murmur noted. Heart rate is 108 bpm. Lungs reveal diminished bilateral breath sounds. Minimal crackles and rhonchi noted. Abdomen soft bowel sounds are heard. No masses or tenderness. Extremities reveal 3+ bilateral lower extremity pitting edema. Skin reveals multiple superficial venous stasis ulcers. Neurologic examination is brief but nonfocal. - Labs CBC & Chem 7: 04/11/24 06:10 04/12/24 10:17 Labs: Abnormal Lab Results - Last 24 Hours (Table) 10/06/2304/11/24 04/11/24 Range/Units 12:07 16:51 21:40 Sodium (137-145) mmol/L Chloride (98-107) mmol/L Carbon Dioxide (22-30) mmol/L BUN (9-20) mg/dL Creatinine (0.66-1.25) mg/dL Glucose (74-99) mg/dL POC Glucose (mg/dL) 365 H 286 H 369 H (70-110) mg/dL 04/12/24 04/12/24 Range/Units 06:04 10:17 Sodium 135 L (137-145) mmol/L Chloride 97 L (98-107) mmol/L Carbon Dioxide 35 H (22-30) mmol/L BUN 80 H (9-20) mg/dL Creatinine 1.60 H (0.66-1.25) mg/dL Glucose 229 H (74-99) mg/dL POC Glucose (mg/dL) 271 H (70-110) mg/dL Assessment and Plan Assessment: Acute on chronic hypoxemic and hypercapnic respiratory failure, secondary to diastolic CHF exacerbation. Atrial fibrillation with rapid ventricular response, S/P JESS/cardioversion, April 08, 2024. Very severe COPD, with an FEV1 that is 22% of predicted. Obstructive sleep apnea syndrome, patient noncompliant with noninvasive positive airway pressure device. Morbid obesity with a BMI of 48.7 kg/m. Acute on chronic kidney disease. Hyperkalemia. Chronic lower extremity edema, with multiple venous stasis ulcers. History of hypertension. History of dyslipidemia. Former tobacco dependence. Plan: Plan dated April 06, 2024. The patient continues on nasal O2 at 6 L. BiPAP device is in the room with settings of 15/6 and 50%. The patient is not receiving any IV fluids. We will continue to follow make recommendations along the way. The patient continues with IV Lasix, bronchodilators, and factor Xa inhibitor. We will continue to follow make recommendations. Prognosis is poor. Labs, x-rays, and all medications have been reviewed. Plan dated April 07, 2024. The patient is doing much better today. His oxygen requirements is gone from 6 L, down to 4. He did use BiPAP last night for about 4 hours, with settings of 14/6, 50%. Labs, x-rays, and all medications are reviewed. The patient was walking around the room without distress. There was no conversational dyspnea, audible wheezing, or use of accessory muscles. We will continue to follow. Prognosis is guarded. Plan date is April 08, 2024. The patient is scheduled to have a transesophageal echocardiogram, and ca rdioversion, done by cardiology today. The patient continues on 4 L of oxygen. Labs, x-rays, and medications are reviewed. The patient's overall prognosis remains guarded. We will continue to follow the patient, and make recommendations where appropriate. Plan dated April 09, 2024. Unfortunately, the patient is back in atrial fibrillation with a rapid ventricular response. He is currently on 3 L of oxygen. The patient is also getting amiodarone at 0.5 mg/min. He does spend the night times, on BiPAP, with settings of 14/6, and 50%. Labs, x-rays, medications are reviewed. We will co ntzechariah to follow. Prognosis is very guarded. No additional recommendations at this time. Plan dated April 10, 2024. The patient is again seen today in room 364. The patient currently remains on amiodarone 0.5 mg/min. He is getting nasal O2 at 3 L. Labs, x-rays, and all medications are reviewed. The patient does have some mild shortness of breath on exertion, no shortness of breath at rest. We will continue to follow. Prognosis is guarded. Plan dated April 11, 2024. The patient is again seen today in room 364. The patient appears to be relatively stable. He denies any chest pain or pressure. Likewise, he denies any shortness of breath, cough, wheezing, chest tightness, or phlegm production. The patient does use BiPAP at nighttime, with settings of 14/6, 50%. Currently he is on 3 L. Labs, x-rays, and all medications are reviewed. We will continue to follow the patient, make recommendations along the way. Prognosis is guarded. Dictation was produced using [employer] software. Please excuse any grammatical, word or spelling errors. Plan dated April 12, 2024. The patient is stable from the pulmonary standpoint. He does use oxygen at 3 L, during the daytime, and the BiPAP at nighttime. The patient remains in atrial fibrillation. Today's heart rate is about 110 bpm. The patient was on amiodarone IV, and is currently being evaluated and treated by cardiology. Labs, x-rays, and medications are reviewed. Nothing more to add at this point. We will continue to follow. Dictation was produced using [employer] software. Please excuse any grammatical, word or spelling errors. Time with Patient: Less than 30
[2024-04-12 11:25] LABS: Glucose,Whole Blood 203 mg/dL (70-110)
--- NOTE | 2024-04-12 12:38 | P.PN ---
Subjective Progress Note Date: 04/12/24 patient is 58-year-old gentleman past medical history significant for congestive heart failure, atrial fibrillation, hypertension, hyperlipidemia, chronic kidney disease, COPD, and morbid obesity who presented the ER because of generalized debility and increasing weakness. Patient stated that he has been feeling like this for the last few weeks. Patient has been complaining of shortness of breath at rest as on exertion. Patient states that he is unable to get around. Denies any chest pain. There is no complaint of palpitations. Patient also complained of increased shakiness and tremors. Denies any fever or chills. There is no complaint of chest pain. There is no complaint orthopnea or PND. Because of the symptoms, patient presented to the ER Initial lab work done in the ER showed WBC 1.1, hemoglobin 15.6, platelet count 240, INR 1, sodium 133, potassium 5.6, chloride 96, BUN 119, creatinine 2.94 glucose 88, calcium 7.7, magnesium 2.6, bilirubin 1, troponin 0.017, proBNP 13,300 EKG done in the ER showed heart rate of 78, irregular rhythm, no ST segment elevation or depression seen, T-wave inversions seen in leads II, III and aVF. V1 to V4. Chest x-ray done in the ER showed mild bibasilar infiltrates, marked cardiomegaly CT head done showed no acute intracranial process CT cervical spine done showed no evidence of any cervical spine pathology X-ray pelvis does not show any evidence of fracture Patient admitted to internal medicine service 04/06. Patient seen and examined. Currently on BiPAP with a 50% FiO2. He is complaining of being short of breath on exertion. Denies any cough. Currently in A-fib, rate poorly controlled. Currently on Cardizem drip. 04/07. Patient seen and examined. Currently on 4 L of oxygen. Patient is diuresing well. Patient is anxious today. 04/08. Patient seen and examined. Patient underwent JESS with cardioversion today. Currently sinus rhythm. Said breathing has improved. 04/09. Patient seen and examined. Blood work done showed WBC 7.1, hemoglobin 16.7, sodium 136, potassium 3.8, BUN 102, creatinine 1.94. Continues to be tachycardic. Currently on amiodarone drip 04/10. Patient seen and examined. Patient continues to be tachycardic, currently off of IV amiodarone and switch to oral amiodarone patient is complaining of shortness of breath on exertion. 04/11 patient seen and examined. Patient complaining of palpitations. Gets short of breath on exertion. 04/12. Patient seen and examined. Complaining of lethargic. Patient heart rate is better controlled. Still gets short of breath on exertion. REVIEW OF SYSTEMS: CONSTITUTIONAL: No fever, no malaise,. CARDIOVASCULAR: No chest pain, no palpitations, no syncope. PULMONARY: As mentioned above GASTROINTESTINAL: No diarrhea, no nausea, no vomiting, no abdominal pain. NEUROLOGICAL: No headaches, no weakness, PHYSICAL EXAMINATION: GENERAL: The patient is alert and oriented x3, not in any acute distress. Well developed, well nourished. HEENT: Pupils are round and equally reacting to light. EOMI. No scleral icterus. No conjunctival pallor. Normocephalic, atraumatic. No pharyngeal erythema. No thyromegaly. CARDIOVASCULAR: S1 and S2 present. No murmurs, rubs, or gallops. Tachycardic PULMONARY: Diminished breath sound at the bases bilaterally no wheezing or crackles. ABDOMEN: Soft, nontender, nondistended, normoactive bowel sounds. No palpable organomegaly. MUSCULOSKELETAL: No joint swelling or deformity. EXTREMITIES: No cyanosis, clubbing, or pedal edema. NEUROLOGICAL: Gross neurological examination did not reveal any focal deficits. SKIN: No rashes. Assessment and plan Acute hypoxic respiratory failure Acute kidney injury Hyperkalemia Hyponatremia Acute on chronic heart failure with preserved EF, 60 to 65% Persistent atrial fibrillation Hyperkalemia Hypertension Hyperlipidemia Chronic kidney disease COPD Morbid obesity: BMI 48.7 Obstructive sleep apnea, noncompliant with CPAP outpatient Monitor vital signs Monitor CBC Monitor CMP Continue telemetry monitoring Continue oxygen supplementation Continue breathing treatment strict I's and O's, daily weights, torsemide 10 mg daily Avoid nephrotoxic agents Status post JESS with cardioversion on 04/08 Continue oral Lopressor, dose increased to 150 mg twice a day Continue amiodarone 400 mg twice daily Continue Eliquis Nephrology following Cardiology following Pulmonary following Labs and medication were reviewed.. Continue same treatment. Continue with symptomatic treatment. Resume home medication. Monitor labs and vitals. DVT and GI prophylaxis. Further recommendations as per clinical course of the patient Dictation was produced using dragon dictation software. please excuse any grammatical, word or spelling errors. Objective - Vital Signs Vital signs: Vital Signs Temp 98.0 F 04/12/24 08:00 Pulse 108 H 04/12/24 08:19 Resp 19 04/12/24 08:00 BP 146/85 04/12/24 08:00 Pulse Ox 96 04/12/24 08:00 FiO2 50 04/10/24 23:53 Intake & Output 04/11/24 04/12/24 04/12/24 18:59 06:59 18:59 Intake Total 236 1173 Output Total 2800 2000 1000 Balance -2564 -827 -1000 Weight 153.7 kg Intake: Oral 236 1173 Output: Urine 2800 2000 1000 Other: Voiding Method Urinal Urinal Urinal - Labs CBC & Chem 7: 04/11/24 06:10 04/12/24 10:17 Labs: Abnormal Lab Results - Last 24 Hours (Table) 04/11/24 04/11/24 04/12/24 Range/Units 16:51 21:40 06:04 Sodium (137-145) mmol/L Chloride (98-107) mmol/L Carbon Dioxide (22-30) mmol/L BUN (9-20) mg/dL Creatinine (0.66-1.25) mg/dL Glucose (74-99) mg/dL POC Glucose (mg/dL) 286 H 369 H 271 H (70-110) mg/dL 04/12/24 04/12/24 Range/Units 10:17 11:25 Sodium 135 L (137-145) mmol/L Chloride 97 L (98-107) mmol/L Carbon Dioxide 35 H (22-30) mmol/L BUN 80 H (9-20) mg/dL Creatinine 1.60 H (0.66-1.25) mg/dL Glucose 229 H (74-99) mg/dL POC Glucose (mg/dL) 203 H (70-110) mg/dL
[2024-04-12] MEDS: PANTOPRAZOLE 40 MG TABLET PO SCH (14:20)
[2024-04-12 16:46] LABS: Glucose,Whole Blood 404 mg/dL (70-110)
[2024-04-12 19:50] LABS: Glucose,Whole Blood 431 mg/dL (70-110)
[2024-04-13 05:58] LABS: Glucose,Whole Blood 295 mg/dL (70-110)
[2024-04-13 11:30] LABS: Glucose,Whole Blood 232 mg/dL (70-110)
--- NOTE | 2024-04-13 12:09 | P.PN ---
Subjective Progress Note Date: 04/13/24 Principal diagnosis: DEBRA secondary to ATN and cardiorenal syndrome Hosiptal course: Patient is a 58-year-old male with history of chronic diastolic CHF, hypertension, A. fib, morbid obesity, COPD presented to the ED with shortness of breath on 04/05 and he was in volume overload. He was diagnosed with Acute hypoxic respiratory failure, atrial fibrillation with a rapid ventricular rate, and cardiorenal syndrome. 04/08/24 Patient seen today. Denies any new complaints. Has a good urine output. He had JESS with cardioversion today for Afib with RVR. Labs today show Na 137, K 3.8, BUN 105, Creatinine 1.93, GFR 37. Chest xray done today shows much improved features of congestive failure. 04/09/24 Patient evaluated today. He had JESS with cardioversion yesterday. But his rhythm is back to AFib with RVR and he is currently on amiodarone drip per cardiology. Denies chest pain, shortness of breath. Has the carroll catheter in place and reports discomfort associated with it. Labs today show Na 136, K 3.8, BUN 102. creatinine 1.94 and GFR 37. 04/10/24 Patient was evaluated today in room 364. He complains of some palpitations. Amiodarone drip 0.5mg/hr will now be changed to oral amiodarone per cardiology. Denies chest pain,shortness of breath, abdominal pain. He notes discomfort with the carroll catheter. Labs today Na 131, K 4.5, BUN 96, creatinine 1.81, GFR 40. 04/11/24 Patient is seen in follow-up for acute kidney injury on chronic kidney disease. Renal function improving. On PO torsemide Currently on room air. No active complaints. 04/12/24 Patient is seen in follow-up for acute kidney injury on chronic kidney disease. Renal function improving. On PO torsemide Currently on room air. No active complaints. 04/13/24 Patient evaluated today. Denies chest pain, shortness of breath, abdominal pain. He mentions doing well after the Carroll catheter was removed. No new complaints. Labs on 04/12/24 show sodium 135, potassium 4.9, BUN 80, creatinine 1.6, bicarb 35. No new labs today. Objective - Vital Signs Vital signs: Vital Signs Temp 97.4 F L 04/12/24 21:00 Pulse 96 04/13/24 09:35 Resp 19 04/13/24 04:03 BP 164/107 04/13/24 04:03 Pulse Ox 97 04/13/24 09:27 FiO2 50 04/10/24 23:53 Intake & Output 04/12/24 04/13/24 04/13/24 18:59 06:59 18:59 Intake Total 472 690 Output Total 1900 2400 Balance -1428 -1710 Weight 156.8 kg Intake: Oral 472 690 Output: Urine 1900 2400 Other: Voiding Method Urinal Urinal - Exam General: nontoxic, no distress, appears at stated age, obese Derm: warm, dry Cardiovascular: reg S1-S2 Lungs: diminished breath sounds b/l no accessory muscle use Abdominal: soft, non-tender to palpataion Extremities: varicose veins and venous stasis ulcer on LE b/l Neuro: Alert, Oriented - Labs CBC & Chem 7: 04/11/24 06:10 04/13/24 12:46 Labs: Abnormal Lab Results - Last 24 Hours (Table) 04/12/24 04/12/24 04/12/24 Range/Units 10:17 11:25 16:45 Sodium 135 L (137-145) mmol/L Chloride 97 L (98-107) mmol/L Carbon Dioxide 35 H (22-30) mmol/L BUN 80 H (9-20) mg/dL Creatinine 1.60 H (0.66-1.25) mg/dL Glucose 229 H (74-99) mg/dL POC Glucose (mg/dL) 203 H 404 H (70-110) mg/dL 04/12/24 04/13/24 Range/Units 19:49 05:56 Sodium (137-145) mmol/L Chloride (98-107) mmol/L Carbon Dioxide (22-30) mmol/L BUN (9-20) mg/dL Creatinine (0.66-1.25) mg/dL Glucose (74-99) mg/dL POC Glucose (mg/dL) 431 H 295 H (70-110) mg/dL Assessment and Plan Assessment: Acute kidney injury secondary to ATN secondary to cardiorenal syndrome. No hydronephrosis noted on kidney ultrasound done in December 2023. Creatinine 2.9 on admission and is 1.60 today. UA benign. A-fib with RVR status post Cardizem drip. Now on oral Cardizem and metoprolol. Chronic kidney disease stage IIIa with baseline creatinine 1.2-1.4 secondary to nephrosclerosis. Volume overload. Improving with diuresis. Hyperphosphatemia secondary to acute kidney injury. Phosphorus level 7.0 dated April 05, 2024 and 3.1 on 04/07/24. Resolved Morbid obesity. Acute hypoxic respiratory failure. Improved. Acute on chronic diastolic CHF Hyperkalemia. Patient is maintained on Aldactone and potassium supplementation. Potassium will be discontinued. Continue with Aldactone. Repeat labs in a.m. Plan: Torsemide 10 mg once daily DC potassium Repeat labs in a.m. Low-salt diet and 1500 cc fluid restriction. Continue to monitor renal function and urine output. Agree with resident's findings assessment and plan.
--- NOTE | 2024-04-13 13:06 | P.PN ---
Subjective HISTORY OF PRESENT ILLNESS: Patient examined this morning at the bedside. Patient currently denies any chest pain or pressure. He denies shortness of breath. He remains on oral diuretics. Vital signs are stable. PHYSICAL EXAM: VITAL SIGNS: Reviewed. GENERAL: Well-developed in no acute distress. NECK: Supple. No JVD or thyromegaly LUNGS: Respirations even and unlabored. Lungs essentially clear to auscultation bilaterally. HEART: Irregular rate and rhythm. S1 and S2 heard. EXTREMITIES: Normal range of motion. No clubbing or cyanosis. Peripheral pulses intact. No lower extremity edema ASSESSMENT: Acute hypoxic and hypercapnic respiratory failure A-fib RVR, persistent Acute HFpEF exacerbation Advanced COPD, in exacerbation DEBRA on CKD Hypertension Hyperlipidemia Morbid obesity Chronic venous insufficiency Noncompliance Prior history of a flutter RVR with CTI ablation in 2021 PLAN: Continue current cardiac medications Continue oral amiodarone. Taper at discharge includes: 400 mg twice a day for a total of 1 week, then 200 mg twice a day for 1 week, then decrease to 200 mg daily Patient is stable for discharge from a cardiac standpoint He is to follow-up postdischarge in the office with Dr. Dickerson We will sign off. Please reconsult if needed. Nurse practitioner note has been reviewed by physician. Signing provider agrees with the documented findings, assessment, and plan of care documented by MECHANICAL TEST TECHNICIAN as a scribe. Objective - Vital Signs Vital signs: Vital Signs Temp 98.4 F 04/13/24 08:00 Pulse 96 04/13/24 09:35 Resp 18 04/13/24 08:00 BP 149/88 04/13/24 08:00 Pulse Ox 97 04/13/24 09:27 FiO2 50 04/10/24 23:53 Intake & Output 04/12/24 04/13/24 04/13/24 18:59 06:59 18:59 Intake Total 472 690 Output Total 1900 2400 1000 Balance -1428 -1710 -1000 Weight 156.8 kg Intake: Oral 472 690 Output: Urine 1900 2400 1000 Other: Voiding Method Urinal Urinal Urinal - Labs CBC & Chem 7: 04/11/24 06:10 04/12/24 10:17 Labs: Abnormal Lab Results - Last 24 Hours (Table) 04/12/24 04/12/24 04/13/24 Range/Units 16:45 19:49 05:56 POC Glucose (mg/dL) 404 H 431 H 295 H (70-110) mg/dL 04/13/24 Range/Units 11:24 POC Glucose (mg/dL) 232 H (70-110) mg/dL
[2024-04-13 13:30] LABS: African American GFR (CKD) 59 (>60 ml/min/1.73 sqM); Anion Gap 5 mmol/L; Blood Urea Nitrogen 76 mg/dL (9-20); Calcium 8.6 mg/dL (8.4-10.2); Carbon Dioxide 32 mmol/L (22-30); Chloride 99 mmol/L (98-107); Glucose 229 mg/dL (74-99); Non-African American GFR(CKD) 51 (>60 ml/min/1.73 sqM); Potassium 5.5 mmol/L (3.5-5.1); Sodium 136 mmol/L (137-145)
--- NOTE | 2024-04-13 14:52 | P.PN ---
Subjective Progress Note Date: 04/13/24 This is a 58-year-old white male with morbid obesity, chronic diastolic conges tive heart failure, chronic obstructive pulmonary disease, chronic kidney disease, familiar to my service from previous admissions, patient presented to the ER with few days history of increased shortness of breath, weakness, generalized medical debility. No chest pain, no fever, no chills, no hemo ptysis, workup in the ER included CBC that showed WBC count of 7.1 hemoglobin 15.6, abnormal potassium of 5.6 abnormal renal profile with a BUN of 119 creatinine 2.94 and abnormal BNP level of 13,300. On his initial arrival, patient was in moderate respiratory distress he was placed on BiPAP 14/6/50%, when I saw the patient I recommended an ABG that showed a pO2 of 68 pCO2 55 pH of 7.35 and this was on BiPAP. Chest x-ray showed evidence of mild interstitial edema and the patient is now on Lasix 60 mg IV push twice daily. Patient is on bronchodilators he is also on methylprednisolone 60 mg IV push every 6 hours. Progress note dated April 06, 2024. 58-year-old male seen today in room 364. He was seen in consultation yesterday. The patient has a history of chronic diastolic CHF, and chronic obstructive pulmonary disease among other things. Currently he is on 6 L nasal cannula. No IV fluids. He has a BiPAP device in the room, with settings of 14/6, and 50%. Clinically, the patient states that he starting to feel a bit better. His chest x-ray revealed mild interstitial edema. He was placed on Lasix. He is also getting bronchodilators and corticosteroids. Current laboratory data includes a completely normal CBC. Sodium 137, potassium 4.4, chlorides 97, CO2 34, BUN 97, creatinine 1.60. Glucose is 386. Progress note dated April 07, 2024. 58-year-old male seen in room 364. Currently, the patient is not receiving any IV fluids. The patient is currently on 4 L nasal cannula. He is walking around the room. He did use both BiPAP and nasal O2 last night. He used BiPAP for about 4 hours. His settings were 14/6, and 50%. Current labs include a white count 10.6, hemoglobin 16.3, hematocrit 48.2, and a normal platelet count. Sodium 137, potassium 3.8, chlorides 98, CO2 36, BUN 96, creatinine 1.49. Glucose is 210. Progress note dated April 08, 2024. 58-year-old male who is seen today in room 364. The patient was to have a transesophageal echocardiogram, and cardioversion, by cardiology today. He remains on 4 L of oxygen by nasal cannula. According to the nurses, the patient had a relatively uneventful night. Laboratory data includes a sodium 137, potassium 3.8, chlorides 94, CO2 35, BUN 105, creatinine 1.93. Glucose is 242. Calcium 9.4. Progress note dated April 09, 2024. The patient had a transesophageal echocardiogram and cardioversion, yesterday, but unfortunately, he is back in atrial fibrillation. He is seen today in room 364. He is on amiodarone at 0.5 mg/min. He is getting nasal O2 at 3 L by nasal cannula. The patient did spend some time last night on BiPAP, with settings of 14/6, 50%. Current laboratory data includes a white count 7.9, hemoglobin 16.7, hematocrit 52.3, and a platelet count is normal. Sodium 136, potassium 3.8, chlorides 91, CO2 38, BUN 102, and creatinine 1.94. Glucose is 361. Albumin is 4. Progress note dated April 10, 2024. 58-year-old male seen again in room 364. The patient continues on oxygen, at 3 L. In addition, because of ongoing atrial fibrillation and RVR, the patient continues on amiodarone 0.5 mg/min. The patient does have some mild shortness of breath on exertion, no other complaints. He denies any chest pain. Current labs include a sodium 131, potassium 4.5, chlorides 93, CO2 29, BUN 96, and creatinine 1.81. Calcium is 8.8. Glucose is 293. Progress note dated April 11, 2024. 58-year-old male seen in room 364. The patient is sitting on the side of his bed. He is in no acute distress. The patient continues on 3 L nasal cannula. No IV fluids. Yesterday he was on amiodarone drip. That has been turned off. He does use BiPAP at nighttime, with settings of 14/6, and 50%. Current labs with a white count 17.8, hemoglobin 17.1, hematocrit 52.5, and a platelet count of 151,000. Sodium 135, potassium 4.5, chloride 94, CO2 33, BUN 94, creatinine 1.92. Glucose is 290. Progress note dated April 12, 2024. 58-year-old male who is seen today in room 364. The patient remains on O2 at 3 L. He does use BiPAP at nighttime, with settings of 14/6, and 50%. The patient continues in atrial fibrillation. His lungs are clear to auscultation on exam ination. Labs include sodium 135, potassium 4.9, chlorides 97, CO2 35, BUN 80, creatinine 1.60. Glucose is 229. Calcium is 8.8. 04/13/2024, the patient is on room air oxygen. Awake and alert and communicating. Denies having any significant respiratory difficulties. In terms of diuretics, the patient is on Demadex 10 mg p.o. daily and is also on Aldactone 12.5 mg p.o. daily. He remains on DuoNeb device treatments [id number]. He is on Symbicort as maintenance and IV Solu-Medrol 40 mg every 12 hours. The blood work shows a BUN of 76 with a creatinine of 1.4 and sodium is at 136 and a potassium level of 5.5. Serum bicarb is at 32. WBC count at 17.8 with a hemoglobin of 17 and a platelet count of 151. Most recent chest x-ray was from 04/08/2024 and it showed improved CHF. Patient denies having any other new complaints for now. Objective - Vital Signs Vital signs: Vital Signs Temp 98.4 F 04/13/24 08:00 Pulse 96 04/13/24 09:35 Resp 18 04/13/24 08:00 BP 149/88 04/13/24 08:00 Pulse Ox 97 04/13/24 09:27 FiO2 50 04/10/24 23:53 Intake & Output 04/12/24 04/13/24 04/13/24 18:59 06:59 18:59 Intake Total 472 690 Output Total 1900 2400 1000 Balance -9825 -5002 -1000 Weight 156.8 kg Intake: Oral 472 690 Output: Urine 1900 2400 1000 Other: Voiding Method Urinal Urinal Urinal - Exam No acute distress, oriented 3. No audible wheezing or use of accessory muscles. Currently on room air oxygen HEENT examination is grossly unremarkable. Mucous membranes are moist. No oral lesions. Neck supple. Full range of motion. No adenopathy thyromegaly or neck vein distention. Cardiovascular examination reveals an irregular rhythm and rate. S1-S2 normal. No S3 or S4. No discernible murmur noted. Lungs reveal diminished bilateral breath sounds. Minimal crackles and rhonchi noted. Abdomen soft bowel sounds are heard. No masses or tenderness. Extremities reveal 3+ bilateral lower extremity pitting edema. Skin reveals multiple superficial venous stasis ulcers. Neurologic examination is brief but nonfocal. - Labs CBC & Chem 7: 04/11/24 06:10 04/13/24 12:46 Labs: Abnormal Lab Results - Last 24 Hours (Table) 04/12/24 04/12/24 04/13/24 Range/Units 16:45 19:49 05:56 POC Glucose (mg/dL) 404 H 431 H 295 H (70-110) mg/dL 04/13/24 Range/Units 11:24 POC Glucose (mg/dL) 232 H (70-110) mg/dL Assessment and Plan Plan: Acute on chronic hypoxemic and hypercapnic respiratory failure, secondary to diastolic CHF exacerbation, improved and the patient is currently on room air oxygen, currently on a combination of Demadex and Aldactone Atrial fibrillation with rapid ventricular response, S/P JESS/cardioversion, April 08, 2024. The patient remains on anticoagulation with Eliquis. The patient is also on amiodarone 4 mg p.o. twice a day and metoprolol 150 mg p.o. twice a day Very severe COPD, with an FEV1 that is 22% of predicted. Obstructive sleep apnea syndrome, patient noncompliant with noninvasive positive airway pressure device. Morbid obesity with a BMI of 48.7 kg/m. Acute on chronic kidney disease. Hyperkalemia. Chronic lower extremity edema, with multiple venous stasis ulcers. History of hypertension. History of dyslipidemia. Former tobacco dependence. Plan Clinically stable. Continue the combination of amiodarone 4 mg twice a day metoprolol 100 mg twice a day and anticoagulation with Eliquis Continue Demadex 10 mg p.o. daily and Aldactone 12.5 mg p.o. daily Incentive spirometer Renal function stable Volume status has been improved Will continue to follow
--- NOTE | 2024-04-13 16:02 | US ---
EXAMINATION TYPE: US venous doppler duplex LE BI DATE OF EXAM: 04/13/2024 3:34 PM COMPARISON: 09/04/22 CLINICAL INDICATION: Male, 58 years old with history of leg swelling, right foot and calf pain; right foot pain TECHNIQUE: The lower extremity deep venous system is examined utilizing real time linear array sonog jane with graded compression, color doppler sonography, and spectral doppler. SIDE PERFORMED: Bilateral FINDINGS: VESSELS IMAGED: Common Femoral Vein Deep Femoral Vein Greater Saphenous Vein * Femoral Vein Popliteal Vein Small Saphenous Vein * Proximal Calf Veins (* superficial vessels) The deep venous systems of both lower extremities from the common femoral remains to the proximal willy f veins are patent and compressible with augmentable flow and with normal waveforms. IMPRESSION: No evidence of bilateral lower extremity DVT from the common femoral veins to the proximal calf veins [facility], Workstation: [id number] 04/13/2024 3:59 PM
--- NOTE | 2024-04-13 16:02 | XR ---
EXAMINATION TYPE: XR foot limited RT DATE OF EXAM: 04/13/2024 3:32 PM CLINICAL INDICATION: Male, 58 years old with history of right foot pain, heel stepped on something??; [facility] COMPARISON: None TECHNIQUE: XR foot limited RT examined in the AP, oblique, and lateral projections. FINDINGS: Acute fracture of the right first digit distal phalanx with intra-articular extension. Mild displacem ent. Fixation hardware in the lower leg appears intact.There is a radiodense foreign body in the plan tar surface near the heel measuring up to 5 mm. Diffuse soft tissue swelling throughout the foot. Fix ation hardware appears intact. IMPRESSION: 1. Acute intra-articular fracture of the distal right first digit distal phalanx with associated sof t tissue swelling. 2. Radiodense lesion in the heel correlate for radiopaque foreign body. [facility], , 04/13/2024 3:59 PM
--- NOTE | 2024-04-13 16:27 | P.GSCN ---
History of Present Illness History of present illness: 58-year-old gentleman history of chronic venous stasis ulceration right lower extremity patient had a ultrasound no evidence of DVT patient has a callus right foot second toe also there is pain at pain on the right heel x-ray shows possible foreign body Medical history history of congestive heart failure atrial fibrillation hypertension and chronic kidney disease Patient was seen in his room chest few crackles the lung bases. Second sound present Abdomen soft nontender Vascular femorals are 1+ bilateral. Has a right lower extremities dressing should be changed on daily basis right heel has some tenderness x-ray shows possible foreign body patient also had a open reduction of the fibula with pin in place Plan is patient is under care of infectious disease for IV antibiotic Medihoney gel applied to the right foot second toe plantar aspect and on the right heel I will review the x-ray with radiology for foreign body on the right heel follow with you and also patient will need Silvadene cream for the right lower extremities 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 History of Any Multi-Drug Resistant Organisms: MRSA Year Discovered:: 11/15/22 MDRO Source:: Left Leg Past Surgical History: Hernia Repair, Joint Replacement, Orthopedic Surgery Additional Past Surgical History / Comment(s): RT ARMAND, rt foot SX, Past Anesthesia/Blood Transfusion Reactions: No Reported Reaction Past Psychological History: Depression Smoking Status: Former smoker Past Alcohol Use History: None Reported Past Drug Use History: None Reported - Past Family History Mother Family Medical History: No Reported History Medications and Allergies Home Medications Medication Instructions Recorded Confirmed Type Losartan [Cozaar] 25 mg PO HS 07/09/22 04/04/24 History hydrOXYzine pamoate [Vistaril] 50 mg PO HS PRN 07/09/22 04/04/24 History Atorvastatin [Lipitor] 10 mg PO DAILY 08/01/22 04/04/24 History Dapagliflozin Propanediol [Farxiga] 10 mg PO DAILY 30 Days #30 tab 09/10/22 04/04/24 Rx Famotidine [Pepcid] 20 mg PO BID #60 tab 09/10/22 04/04/24 Rx Metoprolol Succinate (ER) [Toprol 100 mg PO DAILY 30 Days #30 tab 09/10/22 04/04/24 Rx XL] busPIRone HCl [Buspar] 5 mg PO TID 30 Days #90 tab 09/10/22 04/04/24 Rx traMADol HCl [Ultram] 50 mg PO Q6H PRN #4 tab 01/11/23 04/04/24 Rx Apixaban [Eliquis] 5 mg PO BID 12/12/23 04/04/24 History Finasteride [Proscar] 5 mg PO DAILY 12/12/23 04/04/24 History QUEtiapine [SEROquel] 50 mg PO HS 12/12/23 04/04/24 History Sertraline [Zoloft] 50 mg PO DAILY 12/12/23 04/04/24 History Acetaminophen-Codeine 300-30mg 1 tab PO Q6H PRN 04/04/24 04/04/24 History [Tylenol w/codeine #3] Albuterol Sulfate [Ventolin HFA] 1 puff INHALATION RT-BID 04/04/24 04/04/24 History Cephalexin [Keflex] 500 mg PO Q12HR 04/04/24 04/04/24 History Furosemide [Lasix] 40 mg PO DAILY 04/04/24 04/04/24 History Pregabalin [Lyrica] 150 mg PO Q8H PRN 04/04/24 04/04/24 History Spironolactone [Aldactone] 25 mg PO DAILY 04/04/24 04/04/24 History dilTIAZem HCL [dilTIAZem HCL 24Hr 120 mg PO DAILY 04/04/24 04/04/24 History ER (CD)] Allergies Allergy/AdvReac Type Severity Reaction Status Date / Time No Known Allergies Allergy Verified 04/04/24 20:03 Surgical - Exam Vital Signs Temp Pulse Resp BP Pulse Ox 97.9 F 77 18 93/66 90 L 04/04/24 18:37 04/04/24 18:37 04/04/24 18:37 04/04/24 18:37 04/04/24 18:37 Results - Labs 04/11/24 06:10 04/13/24 12:46 Abnormal Lab Results - Last 24 Hours (Table) 04/12/24 04/12/24 04/13/24 Range/Units 16:45 19:49 05:56 Sodium (137-145) mmol/L Potassium (3.5-5.1) mmol/L Carbon Dioxide (22-30) mmol/L BUN (9-20) mg/dL Creatinine (0.66-1.25) mg/dL Glucose (74-99) mg/dL POC Glucose (mg/dL) 404 H 431 H 295 H (70-110) mg/dL 04/13/24 04/13/24 Range/Units 11:24 12:46 Sodium 136 L (137-145) mmol/L Potassium 5.5 H (3.5-5.1) mmol/L Carbon Dioxide 32 H (22-30) mmol/L BUN 76 H (9-20) mg/dL Creatinine 1.47 H (0.66-1.25) mg/dL Glucose 229 H (74-99) mg/dL POC Glucose (mg/dL) 232 H (70-110) mg/dL Diabetes panel 04/13/24 Range/Units 12:46 Sodium 136 L (137-145) mmol/L Potassium 5.5 H (3.5-5.1) mmol/L Chloride 99 (98-107) mmol/L Carbon Dioxide 32 H (22-30) mmol/L BUN 76 H (9-20) mg/dL Creatinine 1.47 H (0.66-1.25) mg/dL Glucose 229 H (74-99) mg/dL Calcium 8.6 (8.4-10.2) mg/dL Calcium panel 04/13/24 Range/Units 12:46 Calcium 8.6 (8.4-10.2) mg/dL Pituitary panel 04/13/24 Range/Units 12:46 Sodium 136 L (137-145) mmol/L Potassium 5.5 H (3.5-5.1) mmol/L Chloride 99 (98-107) mmol/L Carbon Dioxide 32 H (22-30) mmol/L BUN 76 H (9-20) mg/dL Creatinine 1.47 H (0.66-1.25) mg/dL Glucose 229 H (74-99) mg/dL Calcium 8.6 (8.4-10.2) mg/dL Adrenal panel 04/13/24 Range/Units 12:46 Sodium 136 L (137-145) mmol/L Potassium 5.5 H (3.5-5.1) mmol/L Chloride 99 (98-107) mmol/L Carbon Dioxide 32 H (22-30) mmol/L BUN 76 H (9-20) mg/dL Creatinine 1.47 H (0.66-1.25) mg/dL Glucose 229 H (74-99) mg/dL Calcium 8.6 (8.4-10.2) mg/dL
[2024-04-13 16:33] LABS: Glucose,Whole Blood 313 mg/dL (70-110)
[2024-04-13 19:59] LABS: Glucose,Whole Blood 306 mg/dL (70-110)
--- NOTE | 2024-04-13 21:56 | P.CONS ---
History of Present Illness - Reason for Consult Consult date: 04/13/24 Right heel foreign body foot leg cellulitis Requesting physician: Shayna Garcia - Chief Complaint Pain to the right heel/foot x days - History of Present Illness Patient is a 58-year-old male with a past medical history significant for atrial fibrillation asthma heart failure COPD hypertension hyperlipidemia sleep apnea patient has been in the hospital for almost 9 days now with initial presentation to the hospital for evaluation of increased weakness shortness of breath and generalized debility and this patient has been treated by admitting pulmonary cardiology and nephrology services patient has been complaining of painful sore on the plantar aspect of the right foot close to the heel area that apparently has been getting worse over the last few days patient denies any history of any trauma however has been complaining of sharp pain especially when he bears any weight on it intensity is almost 10 out of 10 in severity patient was noted to have increasing swelling and redness to the right lower extremity concerning for cellulitis for the patient was started on cefazolin infectious disease was consulted for further management of antibiotic therapy patient has been mostly afebrile during this hospital stay he did have normal white initially however white count was up to 17.8 as of 04/11/2024 no CBC has been done since then he did have a creatinine 1.47 urine has been negative no blood culture during this admission patient did have last chest x-ray done on 04/08/2024 with features of congestive heart failure that has improved Review of Systems Positive point and negatives has been mentioned in the HPI, complete review of systems was performed and all other systems are negative 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 History of Any Multi-Drug Resistant Organisms: MRSA Year Discovered:: 11/15/22 MDRO Source:: Left Leg Past Surgical History: Hernia Repair, Joint Replacement, Orthopedic Surgery Additional Past Surgical History / Comment(s): RT ARMAND, rt foot SX, Past Anesthesia/Blood Transfusion Reactions: No Reported Reaction Past Psychological History: Depression Smoking Status: Former smoker Past Alcohol Use History: None Reported Past Drug Use History: None Reported - Past Family History Mother Family Medical History: No Reported History Medications and Allergies Home Medications Medication Instructions Recorded Confirmed Type Losartan [Cozaar] 25 mg PO HS 07/09/22 04/04/24 History hydrOXYzine pamoate [Vistaril] 50 mg PO HS PRN 07/09/22 04/04/24 History Atorvastatin [Lipitor] 10 mg PO DAILY 08/01/22 04/04/24 History Dapagliflozin Propanediol [Farxiga] 10 mg PO DAILY 30 Days #30 tab 09/10/22 1 Rx Famotidine [Pepcid] 20 mg PO BID #60 tab 09/10/22 04/04/24 Rx Metoprolol Succinate (ER) [Toprol 100 mg PO DAILY 30 Days #30 tab 09/10/22 04/04/24 Rx XL] busPIRone HCl [Buspar] 5 mg PO TID 30 Days #90 tab 09/10/22 04/04/24 Rx traMADol HCl [Ultram] 50 mg PO Q6H PRN #4 tab 01/11/23 04/04/24 Rx Apixaban [Eliquis] 5 mg PO BID 12/12/23 04/04/24 History Finasteride [Proscar] 5 mg PO DAILY 12/12/23 04/04/24 History QUEtiapine [SEROquel] 50 mg PO HS 12/12/23 04/04/24 History Sertraline [Zoloft] 50 mg PO DAILY 12/12/23 04/04/24 History Acetaminophen-Codeine 300-30mg 1 tab PO Q6H PRN 04/04/24 04/04/24 History [Tylenol w/codeine #3] Albuterol Sulfate [Ventolin HFA] 1 puff INHALATION RT-BID 04/04/24 04/04/24 History Cephalexin [Keflex] 500 mg PO Q12HR 04/04/24 04/04/24 History Furosemide [Lasix] 40 mg PO DAILY 04/04/24 04/04/24 History Pregabalin [Lyrica] 150 mg PO Q8H PRN 04/04/24 04/04/24 History Spironolactone [Aldactone] 25 mg PO DAILY 04/04/24 04/04/24 History dilTIAZem HCL [dilTIAZem HCL 24Hr 120 mg PO DAILY 04/04/24 04/04/24 History ER (CD)] Allergies Allergy/AdvReac Type Severity Reaction Status Date / Time No Known Allergies Allergy Verified 04/04/24 20:03 Physical Exam Vitals: Vital Signs Temp Pulse Pulse Resp BP Pulse Ox 04/13/24 09:35 96 04/13/24 09:27 97 04/13/24 09:23 93 04/13/24 08:00 98.4 F 87 18 149/88 95 04/13/24 04:03 77 19 164/107 94 L 04/13/24 01:50 19 04/12/24 23:20 97 19 138/83 97 04/12/24 21:00 97.4 F L 79 19 148/93 95 04/12/24 20:26 96 04/12/24 20:17 97 04/12/24 20:00 19 04/12/24 16:55 88 04/12/24 16:46 80 04/12/24 16:00 98.2 F 96 19 142/86 95 Intake and Output 04/13/24 04/13/24 04/13/24 06:59 14:59 22:59 Intake Total 690 118 Output Total 2400 1000 Balance -1710 -882 Intake: Oral 690 118 Output: Urine 2400 1000 Other: Voiding Method Urinal Urinal Weight 156.8 kg GENERAL DESCRIPTION: Middle-aged male lying in bed, no distress. No tachypnea or accessory muscle of respiration use. HEENT: Shows Pallor , no scleral icterus. Oral mucous membrane is dry. No pharyngeal erythema or thrush NECK: Trachea central, no thyromegaly. LUNGS: Unlabored breathing. Decreased breath sound at the base HEART: S1, S2, regular rate and rhythm. No loud murmur ABDOMEN: Soft, no tenderness , guarding or rigidity, no organomegaly EXTREMITIES: Right lower extremity with swelling redness which is warm to touch patient did have a painful sore to the right heel area but no drainage SKIN: No rash, no masses palpable. NEUROLOGICAL: The patient is awake, alert, oriented x3, mood and affect normal. Results CBC & Chem 7: 04/11/24 06:10 04/13/24 12:46 Labs: Abnormal Lab Results - Last 24 Hours (Table) 04/12/24 04/12/24 04/13/24 Range/Units 16:45 19:49 05:56 Sodium (137-145) mmol/L Potassium (3.5-5.1) mmol/L Carbon Dioxide (22-30) mmol/L BUN (9-20) mg/dL Creatinine (0.66-1.25) mg/dL Glucose (74-99) mg/dL POC Glucose (mg/dL) 404 H 431 H 295 H (70-110) mg/dL 04/13/24 04/13/24 Range/Units 11:24 12:46 Sodium 136 L (137-145) mmol/L Potassium 5.5 H (3.5-5.1) mmol/L Carbon Dioxide 32 H (22-30) mmol/L BUN 76 H (9-20) mg/dL Creatinine 1.47 H (0.66-1.25) mg/dL Glucose 229 H (74-99) mg/dL POC Glucose (mg/dL) 232 H (70-110) mg/dL Assessment and Plan (1) Cellulitis of right lower extremity Current Visit: Yes Status: Acute Code(s): L03.115 - CELLULITIS OF RIGHT LOWER LIMB SNOMED Code(s): 07990474605878637 (2) Leukocytosis Current Visit: Yes Status: Acute Code(s): D72.829 - ELEVATED WHITE BLOOD CELL COUNT, UNSPECIFIED SNOMED Code(s): 491322848 Plan: 1patient with diffuse swelling redness right lower extremity concerning for cellulitis likely from gram-positive skin alesia and this patient also have a painful sore to the right heel concerning for possible foreign body and may be the source of this cellulitis. 2x-rays has been obtained and results are currently pending 3-vascular surgery on the case discussed with the surgery if any evidence of foreign body will need extraction and deep culture at that point 4patient empirically treated with cefazolin 2 g every 8 hours on while waiting for the culture to finalize We will follow on clinical condition and cultures to further adjust medication if needed Thank you for this consultation we will follow the patient along with you Dictation was produced using [employer] dictation software. please excuse any grammatical, word or spelling errors. Time with Patient: Greater than 30
--- NOTE | 2024-04-14 02:37 | P.PN ---
Subjective Progress Note Date: 04/13/24 patient is 58-year-old gentleman past medical history significant for congestive heart failure, atrial fibrillation, hypertension, hyperlipidemia, chronic kidney disease, COPD, and morbid obesity who presented the ER because of generalized debility and increasing weakness. Patient stated that he has been feeling like this for the last few weeks. Patient has been complaining of shortness of breath at rest as on exertion. Patient states that he is unable to get around. Denies any chest pain. There is no complaint of palpitations. Patient also complained of increased shakiness and tremors. Denies any fever or chills. There is no complaint of chest pain. There is no complaint orthopnea or PND. Because of the symptoms, patient presented to the ER Initial lab work done in the ER showed WBC 1.1, hemoglobin 15.6, platelet count 240, INR 1, sodium 133, potassium 5.6, chloride 96, BUN 119, creatinine 2.94 glucose 88, calcium 7.7, magnesium 2.6, bilirubin 1, troponin 0.017, proBNP 13,300 EKG done in the ER showed heart rate of 78, irregular rhythm, no ST segment elevation or depression seen, T-wave inversions seen in leads II, III and aVF. V1 to V4. Chest x-ray done in the ER showed mild bibasilar infiltrates, marked cardiomegaly CT head done showed no acute intracranial process CT cervical spine done showed no evidence of any cervical spine pathology X-ray pelvis does not show any evidence of fracture Patient admitted to internal medicine service 04/06. Patient seen and examined. Currently on BiPAP with a 50% FiO2. He is complaining of being short of breath on exertion. Denies any cough. Currently in A-fib, rate poorly controlled. Currently on Cardizem drip. 04/07. Patient seen and examined. Currently on 4 L of oxygen. Patient is diuresing well. Patient is anxious today. 04/08. Patient seen and examined. Patient underwent JESS with cardioversion today. Currently sinus rhythm. Said breathing has improved. 04/09. Patient seen and examined. Blood work done showed WBC 7.1, hemoglobin 16.7, sodium 136, potassium 3.8, BUN 102, creatinine 1.94. Continues to be tachycardic. Currently on amiodarone drip 04/10. Patient seen and examined. Patient continues to be tachycardic, currently off of IV amiodarone and switch to oral amiodarone patient is complaining of shortness of breath on exertion. 04/11 patient seen and examined. Patient complaining of palpitations. Gets short of breath on exertion. 04/12. Patient seen and examined. Complaining of lethargic. Patient heart rate is better controlled. Still gets short of breath on exertion. 04/13/2024 Patient is seen in follow-up today being followed by cardiology and pulmonary. Vascular surgery and infectious disease consulted as there is concerns of lower extremity cellulitis along with extreme right heel pain which appears to be a foreign body as noted on x-ray in the heel. Patient reports he is unsure if he stepped on something but has been causing increased pain over the last few days. Will start cefazolin and appreciate input and recommendations from infectious disease along with vascular surgery. Patient maintained on IV steroids and will continue for now along with DuoNeb treatments and diuretic therapy. REVIEW OF SYSTEMS: CONSTITUTIONAL: No fever, no malaise,. CARDIOVASCULAR: No chest pain, no palpitations, no syncope. PULMONARY: As mentioned above GASTROINTESTINAL: No diarrhea, no nausea, no vomiting, no abdominal pain. NEUROLOGICAL: No headaches, no weakness, reports of right foot pain PHYSICAL EXAMINATION: GENERAL: The patient is alert and oriented x3, not in any acute distress. Well developed, well nourished. Morbidly obese, elderly appearing, ill-appearing HEENT: Pupils are round and equally reacting to light. EOMI. No scleral icterus. No conjunctival pallor. Normocephalic, atraumatic. No pharyngeal erythema. No thyromegaly. CARDIOVASCULAR: S1 and S2 muffled PULMONARY: Diminished breath sound at the bases bilaterally no wheezing or crackles. ABDOMEN: Soft, obese, nontender, nondistended, normoactive bowel sounds. No palpable organomegaly. MUSCULOSKELETAL: No joint swelling or deformity. EXTREMITIES: No cyanosis, clubbing, or pedal edema. Right heel with redness and puncture wilmar appears to have a foreign body NEUROLOGICAL: Gross neurological examination did not reveal any focal deficits. SKIN: No rashes. Assessment : Acute on chronic hypoxic respiratory failure secondary to CHF and COPD exacerbation Bilateral lower extremity redness and swelling with concerns of cellulitis Right heel pain with concerns of foreign body on imaging Acute kidney injury Hyperkalemia, improved post Lokelma Hyponatremia Acute on chronic heart failure with preserved EF, 60 to 65% Persistent atrial fibrillation, status post JESS with cardioversion on 04/08/2024 Hypertension Hyperlipidemia Chronic kidney disease COPD Morbid obesity: BMI 48.7 Obstructive sleep apnea, noncompliant with CPAP outpatient GI prophylaxis DVT prophylaxis Full code Plan: Patient to continue on current medications with cardiology and pulmonary following. Patient is stable and has been cleared for discharge although patient is reporting severe right heel pain. X-ray was obtained and concerns of possible foreign body in the heel. Consult to vascular surgery and appreciate input and recommendations Patient is being started on empiric antibiotics in the form of Kefzol with concerns of bilateral lower extremity cellulitis and will consult infectious disease and appreciate input and recommendations Continue offloading of that right heel for now will discuss further with vascular surgery regarding treatment plan Continue IV steroids along with DuoNeb treatments [id number]. Continue sliding scale with Accu-Cheks before meals and at bedtime and will add long- acting and adjust insulins accordingly Will discuss further with other consultations regarding discharge planning Due to multiple complex medical issues, overall prognosis is guarded The impression and plan of care has been dictated by Shayna Garcia, Nurse Practitioner as directed. Dr. Ja MD I have performed a history and examination and MDM of this patient, discussed the same with the dictator, and agree with the dictator's assessment and plan as written ,documented as a scribe. Based on total visit time, I have performed more than 50% of the visit. Objective - Vital Signs Vital signs: Vital Signs Temp 98.1 F 04/13/24 23:02 Pulse 67 04/13/24 23:02 Resp 16 04/13/24 23:02 BP 115/78 04/13/24 23:02 Pulse Ox 95 04/13/24 23:02 FiO2 50 04/14/24 01:17 Intake & Output 04/13/24 04/13/24 04/14/24 06:59 18:59 06:59 Intake Total 690 1138 Output Total 2400 2900 Balance -1710 -1762 Weight 156.8 kg Intake: Oral 690 1138 Output: Urine 2400 2900 Other: Voiding Method Urinal Urinal Urinal - Labs CBC & Chem 7: 04/11/24 06:10 04/13/24 12:46 Labs: Abnormal Lab Results - Last 24 Hours (Table) 04/13/24 04/13/24 04/13/24 Range/Units 05:56 11:24 12:46 Sodium 136 L (137-145) mmol/L Potassium 5.5 H (3.5-5.1) mmol/L Carbon Dioxide 32 H (22-30) mmol/L BUN 76 H (9-20) mg/dL Creatinine 1.47 H (0.66-1.25) mg/dL Glucose 229 H (74-99) mg/dL POC Glucose (mg/dL) 295 H 232 H (70-110) mg/dL 04/13/24 04/13/24 Range/Units 16:32 19:57 Sodium (137-145) mmol/L Potassium (3.5-5.1) mmol/L Carbon Dioxide (22-30) mmol/L BUN (9-20) mg/dL Creatinine (0.66-1.25) mg/dL Glucose (74-99) mg/dL POC Glucose (mg/dL) 313 H 306 H (70-110) mg/dL
[2024-04-14 06:23] LABS: Glucose,Whole Blood 230 mg/dL (70-110)
[2024-04-14] MEDS: INSULIN DETEMIR (LEVEMIR) 100 UNIT/ML SYR SQ SCH (06:32)
[2024-04-14 07:56] LABS: ALT 25 U/L (4-49); AST 20 U/L (17-59); African American GFR (CKD) 62 (>60 ml/min/1.73 sqM); Albumin 3.7 g/dL (3.5-5.0); Alkaline Phosphatase 93 U/L (38-126); Anion Gap 4 mmol/L; Blood Urea Nitrogen 69 mg/dL (9-20); Calcium 8.8 mg/dL (8.4-10.2); Carbon Dioxide 36 mmol/L (22-30); Chloride 97 mmol/L (98-107); Glucose 205 mg/dL (74-99); Magnesium 2.3 mg/dL (1.6-2.3); Non-African American GFR(CKD) 54 (>60 ml/min/1.73 sqM); Potassium 5.6 mmol/L (3.5-5.1); Sodium 137 mmol/L (137-145); Total Bilirubin 0.9 mg/dL (0.2-1.3); Total Protein 6.2 g/dL (6.3-8.2)
[2024-04-14 11:31] LABS: Glucose,Whole Blood 314 mg/dL (70-110)
--- NOTE | 2024-04-14 12:47 | P.PN ---
Subjective Progress Note Date: 04/14/24 Principal diagnosis: DEBRA secondary to ATN and cardiorenal syndrome Hosiptal course: Patient is a 58-year-old male with history of chronic diastolic CHF, hypertension, A. fib, morbid obesity, COPD presented to the ED with shortness of breath on 04/05 and he was in volume overload. He was diagnosed with Acute hypoxic respiratory failure, atrial fibrillation with a rapid ventricular rate, and cardiorenal syndrome. 04/08/24 Patient seen today. Denies any new complaints. Has a good urine output. He had JESS with cardioversion today for Afib with RVR. Labs today show Na 137, K 3.8, BUN 105, Creatinine 1.93, GFR 37. Chest xray done today shows much improved features of congestive failure. 04/09/24 Patient evaluated today. He had JESS with cardioversion yesterday. But his rhythm is back to AFib with RVR and he is currently on amiodarone drip per cardiology. Denies chest pain, shortness of breath. Has the carroll catheter in place and reports discomfort associated with it. Labs today show Na 136, K 3.8, BUN 102. creatinine 1.94 and GFR 37. 04/10/24 Patient was evaluated today in room 364. He complains of some palpitations. Amiodarone drip 0.5mg/hr will now be changed to oral amiodarone per cardiology. Denies chest pain,shortness of breath, abdominal pain. He notes discomfort with the carroll catheter. Labs today Na 131, K 4.5, BUN 96, creatinine 1.81, GFR 40. 04/11/24 Patient is seen in follow-up for acute kidney injury on chronic kidney disease. Renal function improving. On PO torsemide Currently on room air. No active complaints. 04/12/24 Patient is seen in follow-up for acute kidney injury on chronic kidney disease. Renal function improving. On PO torsemide Currently on room air. No active complaints. 04/13/24 Patient evaluated today. Denies chest pain, shortness of breath, abdominal pain. He mentions doing well after the Carroll catheter was removed. No new complaints. Labs on 04/12/24 show sodium 135, potassium 4.9, BUN 80, creatinine 1.6, bicarb 35. No new labs today. 04/14/24 Patient seen today. He complains of pain in his right foot. Foot xray shows fracture of distal right first digit phalanx and radiodense lesion in the heel. Venous doppler doesn't show DVT. Denies abdominal pain, dyusria, shortness of breath, chest pain. Labs today show Na 137, K 5.6, bicarb 36, AG 4, BUN 69, creatinine 1.42. Objective - Vital Signs Vital signs: Vital Signs Temp 98.2 F 04/14/24 08:00 Pulse 85 04/14/24 08:39 Resp 18 04/14/24 08:00 BP 149/98 04/14/24 08:00 Pulse Ox 97 04/14/24 08:28 FiO2 50 04/14/24 03:31 Intake & Output 04/13/24 04/14/24 04/14/24 18:59 06:59 18:59 Intake Total 1138 777 360 Output Total 2900 1600 Balance -1762 -823 360 Weight 156.5 kg Intake: Oral 1138 777 360 Output: Urine 2900 1600 Other: Voiding Method Urinal Urinal Urinal - Exam General: nontoxic, no distress, appears at stated age, obese Derm: warm, dry Cardiovascular: reg S1-S2 Lungs: diminished breath sounds b/l no accessory muscle use Abdominal: soft, non-tender to palpataion Extremities: right foot and ankle bandaged, varicose veins and venous stasis ulcer on LE b/l Neuro: Alert, Oriented - Labs CBC & Chem 7: 04/11/24 06:10 04/14/24 06:44 Labs: Abnormal Lab Results - Last 24 Hours (Table) 04/13/24 04/13/24 04/13/24 Range/Units 11:24 12:46 16:32 Sodium 136 L (137-145) mmol/L Potassium 5.5 H (3.5-5.1) mmol/L Chloride (98-107) mmol/L Carbon Dioxide 32 H (22-30) mmol/L BUN 76 H (9-20) mg/dL Creatinine 1.47 H (0.66-1.25) mg/dL Glucose 229 H (74-99) mg/dL POC Glucose (mg/dL) 232 H 313 H (70-110) mg/dL Total Protein (6.3-8.2) g/dL 04/13/24 04/14/2404/14/24 Range/Units 19:57 06:13 06:44 Sodium (137-145) mmol/L Potassium 5.6 H (3.5-5.1) mmol/L Chloride 97 L (98-107) mmol/L Carbon Dioxide 36 H (22-30) mmol/L BUN 69 H (9-20) mg/dL Creatinine 1.42 H (0.66-1.25) mg/dL Glucose 205 H (74-99) mg/dL POC Glucose (mg/dL) 306 H 230 H (70-110) mg/dL Total Protein 6.2 L (6.3-8.2) g/dL Assessment and Plan Assessment: Acute kidney injury secondary to ATN secondary to cardiorenal syndrome. No hydronephrosis noted on kidney ultrasound done in December 2023. Creatinine 2.9 on admission and is 1.42 today. UA benign. A-fib with RVR status post cardizem and Amiodarone drip. Now on oral amiodarone and metoprolol. Chronic kidney disease stage IIIa with baseline creatinine 1.2-1.4 secondary to nephrosclerosis. Volume overload. Improving with diuresis. Hyperphosphatemia secondary to acute kidney injury. Phosphorus level 7.0 dated April 05, 2024 and 3.1 on 04/07/24. Resolved Morbid obesity. Acute hypoxic respiratory failure. Improved. Acute on chronic diastolic CHF Hyperkalemia. Patient is maintained on Aldactone and potassium supplementation. Potassium discontinued. Hyperglycemia contributing to the hyperkalemia as well. Continue with Aldactone. K today 5.6 Plan: Control blood sugar. Regular Insulin 10 Units IV x1 Continue Torsemide 10 mg once daily Repeat labs in a.m. Low-salt diet and 1500 cc fluid restriction. Continue to monitor renal function and urine output. DC aldactone if K remains elevated tomorrow. Patient is seen and examined. Agree with findings assessment and plan.
[2024-04-14 14:44] LABS: Glucose,Whole Blood 336 mg/dL (70-110)
--- NOTE | 2024-04-14 14:46 | P.PN ---
Subjective Progress Note Date: 04/14/24 Principal diagnosis: Reason for follow-up is a right lower extremity cellulitis and right foot foreign body Patient is a 58-year-old male with a past medical history significant for atrial fibrillation asthma heart failure COPD hypertension hyperlipidemia sleep apnea presented to hospital for evaluation of increasing shortness of breath patient also developed increasing redness to the right leg with pain to the right heel with the x-ray showing evidence of foreign body. On today's evaluation that is 04/14/2024, Patient is afebrile patient is currently on 3 L current oxygen and denies having any worsening shortness of breath, the patient denies any chest pain or cough, the patient denies any nausea vomiting did not have any abdominal pain and no diarrhea, still complaining of pain to the right heel area especially when he walks on it. Patient did have a creatinine of 1.42 no CBC was done today Objective - Vital Signs Vital signs: Vital Signs Temp 98.2 F 04/14/24 11:35 Pulse 85 04/14/24 12:11 Resp 18 04/14/24 11:35 BP 155/104 04/14/24 11:35 Pulse Ox 98 04/14/24 11:35 FiO2 50 04/14/24 03:31 Intake & Output 04/13/24 04/14/24 04/14/24 18:59 06:59 18:59 Intake Total 1138 777 900 Output Total 2900 1600 1999 Balance -3289 -023 -3480 Weight 156.5 kg Intake: Oral 1138 777 900 Output: Urine 2900 1600 1999 Other: Voiding Method Urinal Urinal Urinal - Exam GENERAL DESCRIPTION: Middle-age male lying in bed in no distress RESPIRATORY SYSTEM: Unlabored breathing , decreased breath sounds at bases HEART: S1 S2 regular rate and rhythm , ABDOMEN: Soft , no tenderness EXTREMITIES: Right leg is currently dressed minimal drainage on the dressing - Labs CBC & Chem 7: 04/11/24 06:10 04/14/24 06:44 Labs: Abnormal Lab Results - Last 24 Hours (Table) 04/13/24 04/13/24 04/14/24 Range/Units 16:32 19:57 06:13 Potassium (3.5-5.1) mmol/L Chloride (98-107) mmol/L Carbon Dioxide (22-30) mmol/L BUN (9-20) mg/dL Creatinine (0.66-1.25) mg/dL Glucose (74-99) mg/dL POC Glucose (mg/dL) 313 H 306 H 230 H (70-110) mg/dL Total Protein (6.3-8.2) g/dL 04/14/24 04/14/24 04/14/24 Range/Units 06:44 11:30 14:42 Potassium 5.6 H (3.5-5.1) mmol/L Chloride 97 L (98-107) mmol/L Carbon Dioxide 36 H (22-30) mmol/L BUN 69 H (9-20) mg/dL Creatinine 1.42 H (0.66-1.25) mg/dL Glucose 205 H (74-99) mg/dL POC Glucose (mg/dL) 314 H 336 H (70-110) mg/dL Total Protein 6.2 L (6.3-8.2) g/dL Assessment and Plan (1) Cellulitis of right lower extremity Current Visit: Yes Status: Acute Code(s): L03.115 - CELLULITIS OF RIGHT LOWER LIMB SNOMED Code(s): 08565199136642951 (2) Leukocytosis Current Visit: Yes Status: Acute Code(s): D72.829 - ELEVATED WHITE BLOOD CELL COUNT, UNSPECIFIED SNOMED Code(s): 243419836 Plan: 1patient with diffuse swelling redness right lower extremity concerning for cellulitis likely from gram-positive skin alesia and this patient also have a painful sore to the right heel concerning for possible foreign body and may be the source of this cellulitis. 2x-rays of the right foot did shows evidence of foreign body more likely responsible for his pain await removal of the foreign body and possible deep culture vascular surgery is on the case 3- patient to continue with cefazolin 2 g every 8 hours on while waiting for the culture to finalize Dictation was produced using [employer] software. please excuse any grammatical, word or spelling errors. Time with Patient: Less than 30
--- NOTE | 2024-04-14 14:47 | P.PN ---
Subjective Progress Note Date: 04/14/24 This is a 58-year-old white male with morbid obesity, chronic diastolic conges tive heart failure, chronic obstructive pulmonary disease, chronic kidney disease, familiar to my service from previous admissions, patient presented to the ER with few days history of increased shortness of breath, weakness, generalized medical debility. No chest pain, no fever, no chills, no hemo ptysis, workup in the ER included CBC that showed WBC count of 7.1 hemoglobin 15.6, abnormal potassium of 5.6 abnormal renal profile with a BUN of 119 creatinine 2.94 and abnormal BNP level of 13,300. On his initial arrival, patient was in moderate respiratory distress he was placed on BiPAP 14/6/50%, when I saw the patient I recommended an ABG that showed a pO2 of 68 pCO2 55 pH of 7.35 and this was on BiPAP. Chest x-ray showed evidence of mild interstitial edema and the patient is now on Lasix 60 mg IV push twice daily. Patient is on bronchodilators he is also on methylprednisolone 60 mg IV push every 6 hours. Progress note dated April 06, 2024. 58-year-old male seen today in room 364. He was seen in consultation yesterday. The patient has a history of chronic diastolic CHF, and chronic obstructive pulmonary disease among other things. Currently he is on 6 L nasal cannula. No IV fluids. He has a BiPAP device in the room, with settings of 14/6, and 50%. Clinically, the patient states that he starting to feel a bit better. His chest x-ray revealed mild interstitial edema. He was placed on Lasix. He is also getting bronchodilators and corticosteroids. Current laboratory data includes a completely normal CBC. Sodium 137, potassium 4.4, chlorides 97, CO2 34, BUN 97, creatinine 1.60. Glucose is 386. Progress note dated April 07, 2024. 58-year-old male seen in room 364. Currently, the patient is not receiving any IV fluids. The patient is currently on 4 L nasal cannula. He is walking around the room. He did use both BiPAP and nasal O2 last night. He used BiPAP for about 4 hours. His settings were 14/6, and 50%. Current labs include a white count 10.6, hemoglobin 16.3, hematocrit 48.2, and a normal platelet count. Sodium 137, potassium 3.8, chlorides 98, CO2 36, BUN 96, creatinine 1.49. Glucose is 210. Progress note dated April 08, 2024. 58-year-old male who is seen today in room 364. The patient was to have a transesophageal echocardiogram, and cardioversion, by cardiology today. He remains on 4 L of oxygen by nasal cannula. According to the nurses, the patient had a relatively uneventful night. Laboratory data includes a sodium 137, potassium 3.8, chlorides 94, CO2 35, BUN 105, creatinine 1.93. Glucose is 242. Calcium 9.4. Progress note dated April 09, 2024. The patient had a transesophageal echocardiogram and cardioversion, yesterday, but unfortunately, he is back in atrial fibrillation. He is seen today in room 364. He is on amiodarone at 0.5 mg/min. He is getting nasal O2 at 3 L by nasal cannula. The patient did spend some time last night on BiPAP, with settings of 14/6, 50%. Current laboratory data includes a white count 7.9, hemoglobin 16.7, hematocrit 52.3, and a platelet count is normal. Sodium 136, potassium 3.8, chlorides 91, CO2 38, BUN 102, and creatinine 1.94. Glucose is 361. Albumin is 4. Progress note dated April 10, 2024. 58-year-old male seen again in room 364. The patient continues on oxygen, at 3 L. In addition, because of ongoing atrial fibrillation and RVR, the patient continues on amiodarone 0.5 mg/min. The patient does have some mild shortness of breath on exertion, no other complaints. He denies any chest pain. Current labs include a sodium 131, potassium 4.5, chlorides 93, CO2 29, BUN 96, and creatinine 1.81. Calcium is 8.8. Glucose is 293. Progress note dated April 11, 2024. 58-year-old male seen in room 364. The patient is sitting on the side of his bed. He is in no acute distress. The patient continues on 3 L nasal cannula. No IV fluids. Yesterday he was on amiodarone drip. That has been turned off. He does use BiPAP at nighttime, with settings of 14/6, and 50%. Current labs with a white count 17.8, hemoglobin 17.1, hematocrit 52.5, and a platelet count of 151,000. Sodium 135, potassium 4.5, chloride 94, CO2 33, BUN 94, creatinine 1.92. Glucose is 290. Progress note dated April 12, 2024. 58-year-old male who is seen today in room 364. The patient remains on O2 at 3 L. He does use BiPAP at nighttime, with settings of 14/6, and 50%. The patient continues in atrial fibrillation. His lungs are clear to auscultation on exam ination. Labs include sodium 135, potassium 4.9, chlorides 97, CO2 35, BUN 80, creatinine 1.60. Glucose is 229. Calcium is 8.8. 04/13/2024, the patient is on room air oxygen. Awake and alert and communicating. Denies having any significant respiratory difficulties. In terms of diuretics, the patient is on Demadex 10 mg p.o. daily and is also on Aldactone 12.5 mg p.o. daily. He remains on DuoNeb device treatments [id number]. He is on Symbicort as maintenance and IV Solu-Medrol 40 mg every 12 hours. The blood work shows a BUN of 76 with a creatinine of 1.4 and sodium is at 136 and a potassium level of 5.5. Serum bicarb is at 32. WBC count at 17.8 with a hemoglobin of 17 and a platelet count of 151. Most recent chest x-ray was from 04/08/2024 and it showed improved CHF. Patient denies having any other new complaints for now. 04/14/2024, the patient's overall respiratory status is stable. The x-ray of the foot was done yesterday and it showed a radiodense lesion in the heel, suggesting a foreign body. Based on that, the patient will have another evaluation with the surgical team. Meanwhile, respite status is stable. The patient is currently on 3 L of oxygen by nasal cannula with a pulse ox of 98%. The patient remains on DuoNeb updrafts. The patient is on Symbicort. The patient is also on a combination of Aldactone and Demadex. He remains on IV Solu-Medrol 40 mg every 12 hours. Blood work shows a BUN of 69 with a creatinine of 1.4 and a sodium level is 137 and a potassium level is 5.6 and a serum bicarb is at 36. The most recent CBC showed a WBC of 17.9 and a hemoglobin of 17.1. The patient remains on IV cefazolin. The patient remains on Levemir insulin 15 units twice daily plus a sliding scale coverage. Denies having any significant complaints otherwise. Ultrasound Doppler of the lower extremity was negative for DVT. Objective - Vital Signs Vital signs: Vital Signs Temp 98.2 F 04/14/24 08:00 Pulse 85 04/14/24 08:39 Resp 18 04/14/24 08:00 BP 149/98 04/14/24 08:00 Pulse Ox 97 04/14/24 08:28 FiO2 50 04/14/24 03:31 Intake & Output 04/13/24 04/14/24 04/14/24 18:59 06:59 18:59 Intake Total 1138 777 360 Output Total 2900 1600 Balance -7222 823 360 Weight 156.5 kg Intake: Oral 1138 777 360 Output: Urine 2900 1600 Other: Voiding Method Urinal Urinal Urinal - Exam No acute distress, oriented 3. No audible wheezing or use of accessory muscles. Currently on room air oxygen HEENT examination is grossly unremarkable. Mucous membranes are moist. No oral lesions. Neck supple. Full range of motion. No adenopathy thyromegaly or neck vein distention. Cardiovascular examination reveals an irregular rhythm and rate. S1-S2 normal. No S3 or S4. No discernible murmur noted. Lungs reveal diminished bilateral breath sounds. Minimal crackles and rhonchi noted. Abdomen soft bowel sounds are heard. No masses or tenderness. Extremities reveal 3+ bilateral lower extremity pitting edema. Skin reveals multiple superficial venous stasis ulcers. Neurologic examination is brief but nonfocal. - Labs CBC & Chem 7: 04/11/24 06:10 04/14/24 06:44 Labs: Abnormal Lab Results - Last 24 Hours (Table) 04/13/24 04/13/24 04/13/24 Range/Units 11:24 12:46 16:32 Sodium 136 L (137-145) mmol/L Potassium 5.5 H (3.5-5.1) mmol/L Chloride (98-107) mmol/L Carbon Dioxide 32 H (22-30) mmol/L BUN 76 H (9-20) mg/dL Creatinine 1.47 H (0.66-1.25) mg/dL Glucose 229 H (74-99) mg/dL POC Glucose (mg/dL) 232 H 313 H (70-110) mg/dL Total Protein (6.3-8.2) g/dL 04/13/24 04/14/24 04/14/24 Range/Units 19:57 06:13 06:44 Sodium (137-145) mmol/L Potassium 5.6 H (3.5-5.1) mmol/L Chloride 97 L (98-107) mmol/L Carbon Dioxide 36 H (22-30) mmol/L BUN 69 H (9-20) mg/dL Creatinine 1.42 H (0.66-1.25) mg/dL Glucose 205 H (74-99) mg/dL POC Glucose (mg/dL) 306 H 230 H (70-110) mg/dL Total Protein 6.2 L (6.3-8.2) g/dL Assessment and Plan Plan: Acute on chronic hypoxemic and hypercapnic respiratory failure, secondary to diastolic CHF exacerbation,currently on a combination of Demadex and Aldactone, currently on 3 L of oxygen by nasal cannula with adequate oxygenation Atrial fibrillation with rapid ventricular response, S/P JESS/cardioversion, April 08, 2024. The patient remains on anticoagulation with Eliquis. The patient is also on amiodarone 400 mg p.o. twice a day and metoprolol 150 mg p.o. twice a day Very severe COPD, with an FEV1 that is 22% of predicted. Obstructive sleep apnea syndrome, patient noncompliant with noninvasive positive airway pressure device. Morbid obesity with a BMI of 48.7 kg/m. Acute on chronic kidney disease. Hyperkalemia. Chronic lower extremity edema, with multiple venous stasis ulcers. History of hypertension. History of dyslipidemia. Former tobacco dependence. callus right foot second toe also there is pain at pain on the right heel x-ray shows possible foreign body Plan Clinically stable. Continue the combination of amiodarone 400 mg twice a day metoprolol 100 mg twice a day and anticoagulation with Eliquis Continue Demadex 10 mg p.o. daily and Aldactone 12.5 mg p.o. daily Surgery to reevaluate the right foot, may need also an orthopedic evaluation regarding the possibility of a fracture. Incentive spirometer Renal function stable Volume status has been improved Discontinue IV Solu-Medrol and start the patient on prednisone burst taper Will continue to follow
[2024-04-14 16:43] LABS: Glucose,Whole Blood 278 mg/dL (70-110)
[2024-04-14] MEDS: LIDOCAINE 1% INJ 10MG/ML (20 ML MDV) SQ ONE (17:25)
[2024-04-14] MEDS: INSULIN REGULAR 100 UNIT/ML VIAL (IV) IV ONE (18:10)
[2024-04-14 19:50] LABS: Glucose,Whole Blood 293 mg/dL (70-110)
--- NOTE | 2024-04-15 05:46 | P.PN ---
Subjective Progress Note Date: 04/14/24 patient is 58-year-old gentleman past medical history significant for congestive heart failure, atrial fibrillation, hypertension, hyperlipidemia, chronic kidney disease, COPD, and morbid obesity who presented the ER because of generalized debility and increasing weakness. Patient stated that he has been feeling like this for the last few weeks. Patient has been complaining of shortness of breath at rest as on exertion. Patient states that he is unable to get around. Denies any chest pain. There is no complaint of palpitations. Patient also complained of increased shakiness and tremors. Denies any fever or chills. There is no complaint of chest pain. There is no complaint orthopnea or PND. Because of the symptoms, patient presented to the ER Initial lab work done in the ER showed WBC 1.1, hemoglobin 15.6, platelet count 240, INR 1, sodium 133, potassium 5.6, chloride 96, BUN 119, creatinine 2.94 glucose 88, calcium 7.7, magnesium 2.6, bilirubin 1, troponin 0.017, proBNP 13,300 EKG done in the ER showed heart rate of 78, irregular rhythm, no ST segment elevation or depression seen, T-wave inversions seen in leads II, III and aVF. V1 to V4. Chest x-ray done in the ER showed mild bibasilar infiltrates, marked cardiomegaly CT head done showed no acute intracranial process CT cervical spine done showed no evidence of any cervical spine pathology X-ray pelvis does not show any evidence of fracture Patient admitted to internal medicine service 04/06. Patient seen and examined. Currently on BiPAP with a 50% FiO2. He is complaining of being short of breath on exertion. Denies any cough. Currently in A-fib, rate poorly controlled. Currently on Cardizem drip. 04/07. Patient seen and examined. Currently on 4 L of oxygen. Patient is diuresing well. Patient is anxious today. 04/08. Patient seen and examined. Patient underwent JESS with cardioversion today. Currently sinus rhythm. Said breathing has improved. 04/09. Patient seen and examined. Blood work done showed WBC 7.1, hemoglobin 16.7, sodium 136, potassium 3.8, BUN 102, creatinine 1.94. Continues to be tachycardic. Currently on amiodarone drip 04/10. Patient seen and examined. Patient continues to be tachycardic, currently off of IV amiodarone and switch to oral amiodarone patient is complaining of shortness of breath on exertion. 04/11 patient seen and examined. Patient complaining of palpitations. Gets short of breath on exertion. 04/12. Patient seen and examined. Complaining of lethargic. Patient heart rate is better controlled. Still gets short of breath on exertion. 04/13/2024 Patient is seen in follow-up today being followed by cardiology and pulmonary. Vascular surgery and infectious disease consulted as there is concerns of lower extremity cellulitis along with extreme right heel pain which appears to be a foreign body as noted on x-ray in the heel. Patient reports he is unsure if he stepped on something but has been causing increased pain over the last few days. Will start cefazolin and appreciate input and recommendations from infectious disease along with vascular surgery. Patient maintained on IV steroids and will continue for now along with DuoNeb treatments and diuretic therapy. 04/14/2024 Patient is seen and evaluated in follow-up and has been evaluated by vascular surgery along with concerns of possible foreign body in the right heel. Patient is unable to bear weight reporting significant 10/10 pain. Infectious disease also consulted and continued on cefazolin with concerns of bilateral lower extremity cellulitis more so on the right. Patient does have chronic peripheral vascular disease with poor circulation. Vascular surgery to reevaluate that he will and continue with local wound care REVIEW OF SYSTEMS: CONSTITUTIONAL: No fever, no malaise,. CARDIOVASCULAR: No chest pain, no palpitations, no syncope. PULMONARY: As mentioned above GASTROINTESTINAL: No diarrhea, no nausea, no vomiting, no abdominal pain. NEUROLOGICAL: No headaches, no weakness, reports of right foot pain and difficulty walking on it PHYSICAL EXAMINATION: GENERAL: The patient is alert and oriented x3, not in any acute distress. Well developed, well nourished. Morbidly obese, elderly appearing, ill-appearing HEENT: Pupils are round and equally reacting to light. EOMI. No scleral icterus. No conjunctival pallor. Normocephalic, atraumatic. No pharyngeal erythema. No thyromegaly. CARDIOVASCULAR: S1 and S2 muffled PULMONARY: Diminished breath sound at the bases bilaterally no wheezing or crackles. ABDOMEN: Soft, obese, nontender, nondistended, normoactive bowel sounds. No palpable organomegaly. MUSCULOSKELETAL: No joint swelling or deformity. EXTREMITIES: No cyanosis, clubbing, or pedal edema. Right heel with redness and puncture wilmar appears to have a foreign body NEUROLOGICAL: Gross neurological examination did not reveal any focal deficits. SKIN: No rashes. Assessment : Acute on chronic hypoxic respiratory failure secondary to CHF and COPD exacerbation Bilateral lower extremity redness and swelling with concerns of cellulitis, more so on the right Right heel pain with concerns of foreign body on imaging Acute kidney injury Hyperkalemia, improved post Lokelma Hyponatremia Acute on chronic congestive heart failure with preserved EF, 60 to 65% Persistent atrial fibrillation, status post JESS with cardioversion on 04/08/2024 Hypertension Hyperlipidemia Chronic kidney disease COPD Morbid obesity: BMI 48.7 Obstructive sleep apnea, noncompliant with CPAP outpatient GI prophylaxis DVT prophylaxis Full code Plan: Patient to continue on current medications with cardiology and pulmonary following. Patient is stable and has been cleared for discharge although patient is reporting severe right heel pain. X-ray was obtained and concerns of possible foreign body in the heel. vascular surgery following and will be reassessing the right heel for possible foreign body removal Patient is continued on empiric antibiotics in the form of Kefzol with concerns of bilateral lower extremity cellulitis and infectious disease is following Continue offloading of that right heel for now will discuss further with vascular surgery regarding treatment plan. Consult to PT/OT for evaluation Continue IV steroids along with DuoNeb treatments [id number]. Continue sliding scale with Accu-Cheks before meals and at bedtime and will add long- acting and adjust insulins accordingly Will discuss further with other consultations regarding discharge planning Due to multiple complex medical issues, overall prognosis is guarded The impression and plan of care has been dictated by Shayna Garcia, Nurse Practitioner as directed. Dr. Ja MD I have performed a history and examination and MDM of this patient, discussed the same with the dictator, and agree with the dictator's assessment and plan as written ,documented as a scribe. Based on total visit time, I have performed more than 50% of the visit. Objective - Vital Signs Vital signs: Vital Signs Temp 98.2 F 04/14/24 08:00 Pulse 85 04/14/24 08:39 Resp 18 04/14/24 08:00 BP 149/98 04/14/24 08:00 Pulse Ox 97 04/14/24 08:28 FiO2 50 04/14/24 03:31 Intake & Output 04/13/24 04/14/24 04/14/24 18:59 06:59 18:59 Intake Total 1138 777 360 Output Total 2900 1600 Balance -1762 -823 360 Weight 156.5 kg Intake: Oral 1138 777 360 Output: Urine 2900 1600 Other: Voiding Method Urinal Urinal Urinal - Labs CBC & Chem 7: 04/11/24 06:10 04/14/24 06:44 Labs: Abnormal Lab Results - Last 24 Hours (Table) 04/13/24 04/13/24 04/13/24 Range/Units 11:24 12:46 16:32 Sodium 136 L (137-145) mmol/L Potassium 5.5 H (3.5-5.1) mmol/L Chloride (98-107) mmol/L Carbon Dioxide 32 H (22-30) mmol/L BUN 76 H (9-20) mg/dL Creatinine 1.47 H (0.66-1.25) mg/dL Glucose 229 H (74-99) mg/dL POC Glucose (mg/dL) 232 H 313 H (70-110) mg/dL Total Protein (6.3-8.2) g/dL 04/13/24 04/14/24 04/14/24 Range/Units 19:57 06:13 06:44 Sodium (137-145) mmol/L Potassium 5.6 H (3.5-5.1) mmol/L Chloride 97 L (98-107) mmol/L Carbon Dioxide 36 H (22-30) mmol/L BUN 69 H (9-20) mg/dL Creatinine 1.42 H (0.66-1.25) mg/dL Glucose 205 H (74-99) mg/dL POC Glucose (mg/dL) 306 H 230 H (70-110) mg/dL Total Protein 6.2 L (6.3-8.2) g/dL
[2024-04-15 06:16] LABS: Glucose,Whole Blood 149 mg/dL (70-110)
[2024-04-15] MEDS: predniSONE 10 MG TAB PO SCH (08:49)
[2024-04-15 09:17] LABS: African American GFR (CKD) 55 (>60 ml/min/1.73 sqM); Anion Gap 1 mmol/L; Blood Urea Nitrogen 68 mg/dL (9-20); Calcium 8.3 mg/dL (8.4-10.2); Carbon Dioxide 39 mmol/L (22-30); Chloride 96 mmol/L (98-107); Glucose 128 mg/dL (74-99); Non-African American GFR(CKD) 47 (>60 ml/min/1.73 sqM); Potassium 4.8 mmol/L (3.5-5.1); Sodium 136 mmol/L (137-145)
--- NOTE | 2024-04-15 10:52 | OP ---
OPERATIVE REPORT DATE OF SERVICE : 04/15/2024 PREOPERATIVE DIAGNOSIS: Foreign body, right foot, plantar aspect. POSTOPERATIVE DIAGNOSIS: Foreign body, right foot, plantar aspect. PROCEDURE PERFORMED: A piece of glass was removed. DESCRIPTION OF PROCEDURE: This patient's right foot was prepped and drapes applied in the usual sterile manner. A 1% lidocaine plain infiltrated on the plantar aspect. An elliptical small incision was made on the plantar aspect of the foot, deepened through skin, fat, and we found there was a piece of glass, which was removed. The wound was irrigated with saline. Hemostasis was well controlled and silver alginate was applied to the wound. Dressing applied. The patient tolerated the procedure well. MMODL / IJN: [id number] / MTDD
[2024-04-15 11:42] LABS: Glucose,Whole Blood 236 mg/dL (70-110)
--- NOTE | 2024-04-15 11:50 | P.PN ---
Subjective Progress Note Date: 04/15/24 Principal diagnosis: DEBRA secondary to ATN and cardiorenal syndrome Hosiptal course: Patient is a 58-year-old male with history of chronic diastolic CHF, hypertension, A. fib, morbid obesity, COPD presented to the ED with shortness of breath on 04/05 and he was in volume overload. He was diagnosed with Acute hypoxic respiratory failure, atrial fibrillation with a rapid ventricular rate, and cardiorenal syndrome. 04/08/24 Patient seen today. Denies any new complaints. Has a good urine output. He had JESS with cardioversion today for Afib with RVR. Labs today show Na 137, K 3.8, BUN 105, Creatinine 1.93, GFR 37. Chest xray done today shows much improved features of congestive failure. 04/09/24 Patient evaluated today. He had JESS with cardioversion yesterday. But his rhythm is back to AFib with RVR and he is currently on amiodarone drip per cardiology. Denies chest pain, shortness of breath. Has the carroll catheter in place and reports discomfort associated with it. Labs today show Na 136, K 3.8, BUN 102. creatinine 1.94 and GFR 37. 04/10/24 Patient was evaluated today in room 364. He complains of some palpitations. Amiodarone drip 0.5mg/hr will now be changed to oral amiodarone per cardiology. Denies chest pain,shortness of breath, abdominal pain. He notes discomfort with the carroll catheter. Labs today Na 131, K 4.5, BUN 96, creatinine 1.81, GFR 40. 04/11/24 Patient is seen in follow-up for acute kidney injury on chronic kidney disease. Renal function improving. On PO torsemide Currently on room air. No active complaints. 04/12/24 Patient is seen in follow-up for acute kidney injury on chronic kidney disease. Renal function improving. On PO torsemide Currently on room air. No active complaints. 04/13/24 Patient evaluated today. Denies chest pain, shortness of breath, abdominal pain. He mentions doing well after the Carroll catheter was removed. No new complaints. Labs on 04/12/24 show sodium 135, potassium 4.9, BUN 80, creatinine 1.6, bicarb 35. No new labs today. 04/14/24 Patient seen today. He complains of pain in his right foot. Foot xray shows fracture of distal right first digit phalanx and radiodense lesion in the heel. Venous doppler doesn't show DVT. Denies abdominal pain, dyusria, shortness of breath, chest pain. Labs today show Na 137, K 5.6, bicarb 36, AG 4, BUN 69, creatinine 1.42. 04/15/24 Patient evaluated today. No new Complaints. Labs today show Na 136,K 4.8, bicarb 39, UN 68, creatinine 1.57, GFR 47. His glucose today is 128. He was administered 10 units regular IV insulin yesterday to control hyperglycemia(366) and hyperkalemia(5.6). Objective - Vital Signs Vital signs: Vital Signs Temp 97.8 F 04/15/24 08:10 Pulse 92 04/15/24 08:48 Resp 22 04/15/24 08:10 BP 138/93 04/15/24 08:10 Pulse Ox 97 04/15/24 08:10 FiO2 50 04/14/24 03:31 Intake & Output 04/14/24 04/15/24 04/15/24 18:59 06:59 18:59 Intake Total 1140 400 Output Total 2900 1300 Balance -1760 -900 Intake: Oral 1140 400 Output: Urine 2900 1300 Other: Voiding Method Urinal Urinal - Exam General: nontoxic, no distress, appears at stated age, obese Derm: warm, dry Cardiovascular: reg S1-S2 Lungs: diminished breath sounds b/l no accessory muscle use Abdominal: soft, non-tender to palpataion Extremities: right foot and ankle bandaged and in a sock, varicose veins and venous stasis ulcer on LE b/l Neuro: Alert, Oriented - Labs CBC & Chem 7: 04/11/24 06:10 04/15/24 08:16 Labs: Abnormal Lab Results - Last 24 Hours (Table) 04/14/24 04/14/24 04/14/24 Range/Units 11:30 14:42 16:41 POC Glucose (mg/dL) 314 H 336 H 278 H (70-110) mg/dL 04/14/24 04/15/24 Range/Units 19:38 06:00 POC Glucose (mg/dL) 293 H 149 H (70-110) mg/dL Assessment and Plan Assessment: 1. Acute kidney injury secondary to ATN secondary to cardiorenal syndrome. No hydronephrosis noted on kidney ultrasound done in December 2023. Creatinine 2.9 on admission and is 1.57 today. UA benign. 2. A-fib with RVR status post cardizem and Amiodarone drip. Now on oral amiodarone and metoprolol. 3. Chronic kidney disease stage IIIa with baseline creatinine 1.2-1.4 secondary to nephrosclerosis. 4. Volume overload. Improving with diuresis. 5. Hyperphosphatemia secondary to acute kidney injury. Phosphorus level 7.0 dated April 05, 2024 and 3.1 on 04/07/24. Resolved 6. Morbid obesity. 7. Acute hypoxic respiratory failure. Improved. 8. Acute on chronic diastolic CHF 9. Hyperkalemia. Patient is maintained on Aldactone and potassium supplementation. Potassium discontinued. Hyperglycemia contributing to the hyperkalemia as well. Regular insulin IV 10U administered yesterday.Continue with Aldactone. K today 4.8. 10. Distal right first digit phalanx fracture and radiodense lesion on the heel of the right foot. Surgery following Plan: Continue Torsemide 10 mg once daily Repeat labs in a.m. Low-salt diet and 1500 cc fluid restriction. Continue to monitor renal function and urine output. Avoid nephrotoxic agents. Patient is seen and examined. Agree with resident's findings, assessment and p monse.
--- NOTE | 2024-04-15 13:50 | P.PN ---
Subjective Progress Note Date: 04/15/24 patient is 58-year-old gentleman past medical history significant for congestive heart failure, atrial fibrillation, hypertension, hyperlipidemia, chronic kidney disease, COPD, and morbid obesity who presented the ER because of generalized debility and increasing weakness. Patient stated that he has been feeling like this for the last few weeks. Patient has been complaining of shortness of breath at rest as on exertion. Patient states that he is unable to get around. Denies any chest pain. There is no complaint of palpitations. Patient also complained of increased shakiness and tremors. Denies any fever or chills. There is no complaint of chest pain. There is no complaint orthopnea or PND. Because of the symptoms, patient presented to the ER Initial lab work done in the ER showed WBC 1.1, hemoglobin 15.6, platelet count 240, INR 1, sodium 133, potassium 5.6, chloride 96, BUN 119, creatinine 2.94 glucose 88, calcium 7.7, magnesium 2.6, bilirubin 1, troponin 0.017, proBNP 13,300 EKG done in the ER showed heart rate of 78, irregular rhythm, no ST segment elevation or depression seen, T-wave inversions seen in leads II, III and aVF. V1 to V4. Chest x-ray done in the ER showed mild bibasilar infiltrates, marked cardiomegaly CT head done showed no acute intracranial process CT cervical spine done showed no evidence of any cervical spine pathology X-ray pelvis does not show any evidence of fracture Patient admitted to internal medicine service 04/06. Patient seen and examined. Currently on BiPAP with a 50% FiO2. He is complaining of being short of breath on exertion. Denies any cough. Currently in A-fib, rate poorly controlled. Currently on Cardizem drip. 04/07. Patient seen and examined. Currently on 4 L of oxygen. Patient is diuresing well. Patient is anxious today. 04/08. Patient seen and examined. Patient underwent JESS with cardioversion today. Currently sinus rhythm. Said breathing has improved. 04/09. Patient seen and examined. Blood work done showed WBC 7.1, hemoglobin 16.7, sodium 136, potassium 3.8, BUN 102, creatinine 1.94. Continues to be tachycardic. Currently on amiodarone drip 04/10. Patient seen and examined. Patient continues to be tachycardic, currently off of IV amiodarone and switch to oral amiodarone patient is complaining of shortness of breath on exertion. 04/11 patient seen and examined. Patient complaining of palpitations. Gets short of breath on exertion. 04/12. Patient seen and examined. Complaining of lethargic. Patient heart rate is better controlled. Still gets short of breath on exertion. 04/13/2024 Patient is seen in follow-up today being followed by cardiology and pulmonary. Vascular surgery and infectious disease consulted as there is concerns of lower extremity cellulitis along with extreme right heel pain which appears to be a foreign body as noted on x-ray in the heel. Patient reports he is unsure if he stepped on something but has been causing increased pain over the last few days. Will start cefazolin and appreciate input and recommendations from infectious disease along with vascular surgery. Patient maintained on IV steroids and will continue for now along with DuoNeb treatments and diuretic therapy. 04/14/2024 Patient is seen and evaluated in follow-up and has been evaluated by vascular surgery along with concerns of possible foreign body in the right heel. Patient is unable to bear weight reporting significant 10/10 pain. Infectious disease also consulted and continued on cefazolin with concerns of bilateral lower extremity cellulitis more so on the right. Patient does have chronic peripheral vascular disease with poor circulation. Vascular surgery to reevaluate that he will and continue with local wound care 04/15/2024 Patient seen and evaluated in follow-up today and is status post deep culture and removal of a piece of glass in the right heel with vascular surgery. Cultures remain pending and patient is continued on cefazolin. Significant discoloration of the lower extremities noted and patient and nursing staff report the middle toe that was debrided continues to bleed and patient has been noncompliant and continuing to weight-bear and not keep the lower extremities elevated while at rest. Also encouraged strong reinforcement of fluid re strictions although patient is noncompliant with this as well and has been rude with staff demanding more water. Patient is afebrile with no reports of chest pain or shortness of breath. Will await cultures and discuss further with infectious disease and vascular surgery regarding discharge planning. REVIEW OF SYSTEMS: CONSTITUTIONAL: No fever, no malaise,. CARDIOVASCULAR: No chest pain, no palpitations, no syncope. PULMONARY: As mentioned above GASTROINTESTINAL: No diarrhea, no nausea, no vomiting, no abdominal pain. NEUROLOGICAL: No headaches, no weakness, reports of right foot pain and difficulty walking on it with continued bleeding of the toe PHYSICAL EXAMINATION: GENERAL: The patient is alert and oriented x3, not in any acute distress. Well developed, well nourished. Morbidly obese, elderly appearing, ill-appearing HEENT: Pupils are round and equally reacting to light. EOMI. No scleral icterus. No conjunctival pallor. Normocephalic, atraumatic. No pharyngeal erythema. No thyromegaly. CARDIOVASCULAR: S1 and S2 muffled PULMONARY: Diminished breath sound at the bases bilaterally no wheezing or crackles. ABDOMEN: Soft, obese, nontender, nondistended, normoactive bowel sounds. No palpable organomegaly. MUSCULOSKELETAL: No joint swelling or deformity. EXTREMITIES: No cyanosis, clubbing, or pedal edema. Right heel with swelling and right lower extremity redness and swelling NEUROLOGICAL: Gross neurological examination did not reveal any focal deficits. SKIN: No rashes. Assessment : Acute on chronic hypoxic respiratory failure secondary to CHF and COPD exa cerbation Bilateral lower extremity redness and swelling with concerns of cellulitis, more so on the right Right heel pain secondary to a piece of glass lodged in the heel, status post excision of the glass and deep tissue cultures with vascular surgery Acute kidney injury Hyperkalemia, improved post Lokelma Hyponatremia Acute on chronic congestive heart failure with preserved EF, 60 to 65% Persistent atrial fibrillation, status post JESS with cardioversion on 04/08/2024 Hypertension Hyperlipidemia Chronic kidney disease COPD Morbid obesity: BMI 48.7 Obstructive sleep apnea, noncompliant with CPAP outpatient GI prophylaxis DVT prophylaxis Full code Plan: Patient to continue on current medications with cardiology and pulmonary following. Patient is stable and has been cleared for discharge although patient is reporting severe right heel pain. X-ray was obtained and concerns of possible foreign body in the heel. vascular surgery following and is status post removal of a piece of glass from the right heel. Patient is unaware of when he stepped on glass. Cultures are pending and awaiting cultures to determine if patient requires antibiotics on discharge and treatment plan moving forward. Per nursing staff and patient in the right third toe status postdebridement continues to bleed and vascular surgery will reevaluate. Instructed nursing staff to apply pressure gauze and have instructed patient multiple times to elevate lower extremities and remain off of the area. Patient is continued on empiric antibiotics in the form of Kefzol with concerns of bilateral lower extremity cellulitis and infectious disease is following Continue offloading of that right heel for now will discuss further with vascular surgery regarding treatment plan. Per nursing staff patient has been noncompliant and has been up and walking on that heel and also last night was noted to be removing the dressing and picking at it. It continues to bleed and patient is noncompliant with keeping the legs elevated while at rest. Consult to PT/OT for evaluation. Continue IV steroids along with DuoNeb treatments [id number]. Continue sliding scale with Accu-Cheks before meals and at bedtime and will add long- acting and adjust insulins accordingly Will discuss further with other consultations regarding discharge planning, possibly in the next 24 to 48 hours Patient is extremely noncompliant and rude to staffing with his fluid restrictions and his treatment plan. Due to multiple complex medical issues, overall prognosis is guarded The impression and plan of care has been dictated by Shayna Garcia, Nurse Practitioner as directed. Dr. Ja MD I have performed a history and examination and MDM of this patient, discussed the same with the dictator, and agree with the dictator's assessment and plan as written ,documented as a scribe. Based on total visit time, I have performed more than 50% of the visit. Objective - Vital Signs Vital signs: Vital Signs Temp 97.8 F 04/15/24 08:10 Pulse 92 04/15/24 08:48 Resp 22 04/15/24 08:10 BP 138/93 04/15/24 08:10 Pulse Ox 97 04/15/24 08:10 FiO2 50 04/14/24 03:31 Intake & Output 04/14/24 04/15/24 04/15/24 18:59 06:59 18:59 Intake Total 1140 400 Output Total 2900 1300 Balance -1760 -900 Intake: Oral 1140 400 Output: Urine 2900 1300 Other: Voiding Method Urinal Urinal - Labs CBC & Chem 7: 04/11/24 06:10 04/15/24 08:16 Labs: Abnormal Lab Results - Last 24 Hours (Table) 04/14/24 04/14/24 04/14/24 Range/Units 11:30 14:42 16:41 POC Glucose (mg/dL) 314 H 336 H 278 H (70-110) mg/dL 04/14/24 04/15/24 Range/Units 19:38 06:00 POC Glucose (mg/dL) 293 H 149 H (70-110) mg/dL
--- NOTE | 2024-04-15 16:38 | P.PN ---
Subjective Progress Note Date: 04/15/24 This is a 58-year-old white male with morbid obesity, chronic diastolic conges tive heart failure, chronic obstructive pulmonary disease, chronic kidney disease, familiar to my service from previous admissions, patient presented to the ER with few days history of increased shortness of breath, weakness, generalized medical debility. No chest pain, no fever, no chills, no hemo ptysis, workup in the ER included CBC that showed WBC count of 7.1 hemoglobin 15.6, abnormal potassium of 5.6 abnormal renal profile with a BUN of 119 creatinine 2.94 and abnormal BNP level of 13,300. On his initial arrival, patient was in moderate respiratory distress he was placed on BiPAP 14/6/50%, when I saw the patient I recommended an ABG that showed a pO2 of 68 pCO2 55 pH of 7.35 and this was on BiPAP. Chest x-ray showed evidence of mild interstitial edema and the patient is now on Lasix 60 mg IV push twice daily. Patient is on bronchodilators he is also on methylprednisolone 60 mg IV push every 6 hours. Progress note dated April 06, 2024. 58-year-old male seen today in room 364. He was seen in consultation yesterday. The patient has a history of chronic diastolic CHF, and chronic obstructive pulmonary disease among other things. Currently he is on 6 L nasal cannula. No IV fluids. He has a BiPAP device in the room, with settings of 14/6, and 50%. Clinically, the patient states that he starting to feel a bit better. His chest x-ray revealed mild interstitial edema. He was placed on Lasix. He is also getting bronchodilators and corticosteroids. Current laboratory data includes a completely normal CBC. Sodium 137, potassium 4.4, chlorides 97, CO2 34, BUN 97, creatinine 1.60. Glucose is 386. Progress note dated April 07, 2024. 58-year-old male seen in room 364. Currently, the patient is not receiving any IV fluids. The patient is currently on 4 L nasal cannula. He is walking around the room. He did use both BiPAP and nasal O2 last night. He used BiPAP for about 4 hours. His settings were 14/6, and 50%. Current labs include a white count 10.6, hemoglobin 16.3, hematocrit 48.2, and a normal platelet count. Sodium 137, potassium 3.8, chlorides 98, CO2 36, BUN 96, creatinine 1.49. Glucose is 210. Progress note dated April 08, 2024. 58-year-old male who is seen today in room 364. The patient was to have a transesophageal echocardiogram, and cardioversion, by cardiology today. He remains on 4 L of oxygen by nasal cannula. According to the nurses, the patient had a relatively uneventful night. Laboratory data includes a sodium 137, potassium 3.8, chlorides 94, CO2 35, BUN 105, creatinine 1.93. Glucose is 242. Calcium 9.4. Progress note dated April 09, 2024. The patient had a transesophageal echocardiogram and cardioversion, yesterday, but unfortunately, he is back in atrial fibrillation. He is seen today in room 364. He is on amiodarone at 0.5 mg/min. He is getting nasal O2 at 3 L by nasal cannula. The patient did spend some time last night on BiPAP, with settings of 14/6, 50%. Current laboratory data includes a white count 7.9, hemoglobin 16.7, hematocrit 52.3, and a platelet count is normal. Sodium 136, potassium 3.8, chlorides 91, CO2 38, BUN 102, and creatinine 1.94. Glucose is 361. Albumin is 4. Progress note dated April 10, 2024. 58-year-old male seen again in room 364. The patient continues on oxygen, at 3 L. In addition, because of ongoing atrial fibrillation and RVR, the patient continues on amiodarone 0.5 mg/min. The patient does have some mild shortness of breath on exertion, no other complaints. He denies any chest pain. Current labs include a sodium 131, potassium 4.5, chlorides 93, CO2 29, BUN 96, and creatinine 1.81. Calcium is 8.8. Glucose is 293. Progress note dated April 11, 2024. 58-year-old male seen in room 364. The patient is sitting on the side of his bed. He is in no acute distress. The patient continues on 3 L nasal cannula. No IV fluids. Yesterday he was on amiodarone drip. That has been turned off. He does use BiPAP at nighttime, with settings of 14/6, and 50%. Current labs with a white count 17.8, hemoglobin 17.1, hematocrit 52.5, and a platelet count of 151,000. Sodium 135, potassium 4.5, chloride 94, CO2 33, BUN 94, creatinine 1.92. Glucose is 290. Progress note dated April 12, 2024. 58-year-old male who is seen today in room 364. The patient remains on O2 at 3 L. He does use BiPAP at nighttime, with settings of 14/6, and 50%. The patient continues in atrial fibrillation. His lungs are clear to auscultation on exam ination. Labs include sodium 135, potassium 4.9, chlorides 97, CO2 35, BUN 80, creatinine 1.60. Glucose is 229. Calcium is 8.8. 04/13/2024, the patient is on room air oxygen. Awake and alert and communicating. Denies having any significant respiratory difficulties. In terms of diuretics, the patient is on Demadex 10 mg p.o. daily and is also on Aldactone 12.5 mg p.o. daily. He remains on DuoNeb device treatments [id number]. He is on Symbicort as maintenance and IV Solu-Medrol 40 mg every 12 hours. The blood work shows a BUN of 76 with a creatinine of 1.4 and sodium is at 136 and a potassium level of 5.5. Serum bicarb is at 32. WBC count at 17.8 with a hemoglobin of 17 and a platelet count of 151. Most recent chest x-ray was from 04/08/2024 and it showed improved CHF. Patient denies having any other new complaints for now. 04/14/2024, the patient's overall respiratory status is stable. The x-ray of the foot was done yesterday and it showed a radiodense lesion in the heel, suggesting a foreign body. Based on that, the patient will have another evaluation with the surgical team. Meanwhile, respite status is stable. The patient is currently on 3 L of oxygen by nasal cannula with a pulse ox of 98%. The patient remains on DuoNeb updrafts. The patient is on Symbicort. The patient is also on a combination of Aldactone and Demadex. He remains on IV Solu-Medrol 40 mg every 12 hours. Blood work shows a BUN of 69 with a creatinine of 1.4 and a sodium level is 137 and a potassium level is 5.6 and a serum bicarb is at 36. The most recent CBC showed a WBC of 17.9 and a hemoglobin of 17.1. The patient remains on IV cefazolin. The patient remains on Levemir insulin 15 units twice daily plus a sliding scale coverage. Denies having any significant complaints otherwise. Ultrasound Doppler of the lower extremity was negative for DVT. On today's evaluation of 04/15/2024, the patient is calm and comfortable without having any major respiratory difficulties. The patient has no respiratory distress. Patient is currently on 3 L of oxygen by nasal cannula with pulse ox of 96%. No cough or sputum production or chest tightness or wheezing. Limited edema lower extremities bilaterally more so on the right. The patient had another surgical evaluation and a piece of glass was removed from his right heel by the surgical team. Cultures from the right lower extremity are still pending and the patient remains on IV cefazolin. Continues to have discoloration of the right lower extremity and the patient is post surgical debridement. Otherwise, rest of the medication remains unchanged. BUN 16 with a creatinine of 1.5 and a creatinine remained stable. Sodium is at 136, potassium is at 4.8, chloride 96 with a bicarb of 39. Objective - Vital Signs Vital signs: Vital Signs Temp 97.8 F 04/15/24 08:10 Pulse 96 04/15/24 11:35 Resp 22 04/15/24 11:01 BP 138/93 04/15/24 08:10 Pulse Ox 97 04/15/24 08:10 FiO2 50 04/14/24 03:31 Intake & Output 04/14/24 04/15/24 04/15/24 18:59 06:59 18:59 Intake Total 1140 400 356 Output Total 2900 1300 356 Balance -1760 -900 0 Intake: Oral 1140 400 356 Output: Urine 2900 1300 356 Other: Voiding Method Urinal Urinal Urinal - Exam No acute distress, oriented 3. No audible wheezing or use of accessory muscles. Currently on room air oxygen HEENT examination is grossly unremarkable. Mucous membranes are moist. No oral lesions. Neck supple. Full range of motion. No adenopathy thyromegaly or neck vein distention. Cardiovascular examination reveals an irregular rhythm and rate. S1-S2 normal. No S3 or S4. No discernible murmur noted. Lungs reveal diminished bilateral breath sounds. Minimal crackles and rhonchi noted. Abdomen soft bowel sounds are heard. No masses or tenderness. Extremities reveal 3+ bilateral lower extremity pitting edema. Skin reveals multiple superficial venous stasis ulcers. Neurologic examination is brief but nonfocal. - Labs CBC & Chem 7: 04/11/24 06:10 04/15/24 08:16 Labs: Abnormal Lab Results - Last 24 Hours (Table) 04/14/24 04/14/24 04/14/24 Range/Units 14:42 16:41 19:38 Sodium (137-145) mmol/L Chloride (98-107) mmol/L Carbon Dioxide (22-30) mmol/L BUN (9-20) mg/dL Creatinine (0.66-1.25) mg/dL Glucose (74-99) mg/dL POC Glucose (mg/dL) 336 H 278 H 293 H (70-110) mg/dL Calcium (8.4-10.2) mg/dL 04/15/24 04/15/24 04/15/24 Range/Units 06:00 08:16 11:38 Sodium 136 L (137-145) mmol/L Chloride 96 L (98-107) mmol/L Carbon Dioxide 39 H (22-30) mmol/L BUN 68 H (9-20) mg/dL Creatinine 1.57 H (0.66-1.25) mg/dL Glucose 128 H (74-99) mg/dL POC Glucose (mg/dL) 149 H 236 H (70-110) mg/dL Calcium 8.3 L (8.4-10.2) mg/dL Assessment and Plan Plan: Acute on chronic hypoxemic and hypercapnic respiratory failure, secondary to d iastolic CHF exacerbation,currently on a combination of Demadex and Aldactone, currently on 3 L of oxygen by nasal cannula with adequate oxygenation Atrial fibrillation with rapid ventricular response, S/P JESS/cardioversion, April 08, 2024. The patient remains on anticoagulation with Eliquis. The patient is also on amiodarone 400 mg p.o. twice a day and metoprolol 150 mg p.o. twice a day Very severe COPD, with an FEV1 that is 22% of predicted. Obstructive sleep apnea syndrome, patient noncompliant with noninvasive positive airway pressure device. Morbid obesity with a BMI of 48.7 kg/m. Acute on chronic kidney disease. Hyperkalemia. Chronic lower extremity edema, with multiple venous stasis ulcers. History of hypertension. History of dyslipidemia. Former tobacco dependence. callus right foot second toe also there is pain at pain on the right heel status post removal of a foreign body, a piece of glass with ongoing surgical debridement. Cellulitis of the right lower extremity Plan Clinically stable. Foreign body was removed from the right heel Continue IV cefazolin Continue the combination of amiodarone 400 mg twice a day metoprolol 100 mg twice a day and anticoagulation with Eliquis Continue Demadex 10 mg p.o. daily and Aldactone 12.5 mg p.o. daily Surgery to reevaluate the right foot, may need also an orthopedic evaluation regarding the possibility of a fracture. Incentive spirometer Renal function stable Volume status has been improved prednisone burst taper starting with 30 mg Will continue to follow
[2024-04-15 16:44] LABS: Glucose,Whole Blood 244 mg/dL (70-110)
[2024-04-15 20:06] LABS: Glucose,Whole Blood 288 mg/dL (70-110)
[2024-04-16 06:11] LABS: Glucose,Whole Blood 163 mg/dL (70-110)
[2024-04-16 07:48] LABS: African American GFR (CKD) 59 (>60 ml/min/1.73 sqM); Blood Urea Nitrogen 66 mg/dL (9-20); Calcium 8.4 mg/dL (8.4-10.2); Chloride 95 mmol/L (98-107); Glucose 107 mg/dL (74-99); Non-African American GFR(CKD) 51 (>60 ml/min/1.73 sqM); Potassium 5.3 mmol/L (3.5-5.1); Sodium 138 mmol/L (137-145)
[2024-04-16 07:55] LABS: Anion Gap 8 mmol/L
[2024-04-16 07:59] LABS: Carbon Dioxide 35 mmol/L (22-30)
--- NOTE | 2024-04-16 09:05 | P.PN ---
Subjective Progress Note Date: 04/16/24 Principal diagnosis: DEBRA secondary to ATN and cardiorenal syndrome Hosiptal course: Patient is a 58-year-old male with history of chronic diastolic CHF, hypertension, A. fib, morbid obesity, COPD presented to the ED with shortness of breath on 04/05 and he was in volume overload. He was diagnosed with Acute hypoxic respiratory failure, atrial fibrillation with a rapid ventricular rate, and cardiorenal syndrome. 04/08/24 Patient seen today. Denies any new complaints. Has a good urine output. He had JESS with cardioversion today for Afib with RVR. Labs today show Na 137, K 3.8, BUN 105, Creatinine 1.93, GFR 37. Chest xray done today shows much improved features of congestive failure. 04/09/24 Patient evaluated today. He had JESS with cardioversion yesterday. But his rhythm is back to AFib with RVR and he is currently on amiodarone drip per cardiology. Denies chest pain, shortness of breath. Has the carroll catheter in place and reports discomfort associated with it. Labs today show Na 136, K 3.8, BUN 102. creatinine 1.94 and GFR 37. 04/10/24 Patient was evaluated today in room 364. He complains of some palpitations. Amiodarone drip 0.5mg/hr will now be changed to oral amiodarone per cardiology. Denies chest pain,shortness of breath, abdominal pain. He notes discomfort with the carroll catheter. Labs today Na 131, K 4.5, BUN 96, creatinine 1.81, GFR 40. 04/11/24 Patient is seen in follow-up for acute kidney injury on chronic kidney disease. Renal function improving. On PO torsemide Currently on room air. No active complaints. 04/12/24 Patient is seen in follow-up for acute kidney injury on chronic kidney disease. Renal function improving. On PO torsemide Currently on room air. No active complaints. 04/13/24 Patient evaluated today. Denies chest pain, shortness of breath, abdominal pain. He mentions doing well after the Carroll catheter was removed. No new complaints. Labs on 04/12/24 show sodium 135, potassium 4.9, BUN 80, creatinine 1.6, bicarb 35. No new labs today. 04/14/24 Patient seen today. He complains of pain in his right foot. Foot xray shows fracture of distal right first digit phalanx and radiodense lesion in the heel. Venous doppler doesn't show DVT. Denies abdominal pain, dyusria, shortness of breath, chest pain. Labs today show Na 137, K 5.6, bicarb 36, AG 4, BUN 69, creatinine 1.42. 04/15/24 Patient evaluated today. No new Complaints. Labs today show Na 136,K 4.8, bicarb 39, UN 68, creatinine 1.57, GFR 47. His glucose today is 128. He was administered 10 units regular IV insulin yesterday to control hyperglycemia(366) and hyperkalemia(5.6). 04/16/24 Patient seen today. Complains of pain in the right foot. Mentions of having a low stream of urine. Denies abdominal pain, shortness of breath. Labs today show Na 138, K 5.3, bicarb 35, BUn 66, creatinine 1.46, GFR 51, glucose 107. 24hr urine output 4200ml. Objective - Vital Signs Vital signs: Vital Signs Temp 99.3 F 04/16/24 07:40 Pulse 96 04/16/24 08:22 Resp 20 04/16/24 07:40 BP 126/64 04/16/24 07:40 Pulse Ox 97 04/16/24 07:40 FiO2 50 04/14/24 03:31 Intake & Output 04/15/24 04/16/24 04/16/24 18:59 06:59 18:59 Intake Total 474 Output Total 356 1450 Balance 118 -1450 Weight 157.6 kg Intake: Oral 474 Output: Urine 356 1450 Other: Voiding Method Urinal Urinal # Voids 3 # Bowel Movements 1 - Exam General: nontoxic, no distress, appears at stated age, obese Derm: warm, dry Cardiovascular: reg S1-S2 Lungs: diminished breath sounds b/l no accessory muscle use Abdominal: soft, non-tender to palpataion Extremities: right foot and ankle bandaged, right lower leg is red and edematous, varicose veins and venous stasis ulcer on LE b/l Neuro: Alert, Oriented - Labs CBC & Chem 7: 04/11/24 06:10 04/16/24 07:12 Labs: Abnormal Lab Results - Last 24 Hours (Table) 04/15/24 04/15/24 04/15/24 Range/Units 08:16 11:38 16:42 Sodium 136 L (137-145) mmol/L Potassium (3.5-5.1) mmol/L Chloride 96 L (98-107) mmol/L Carbon Dioxide 39 H (22-30) mmol/L BUN 68 H (9-20) mg/dL Creatinine 1.57 H (0.66-1.25) mg/dL Glucose 128 H (74-99) mg/dL POC Glucose (mg/dL) 236 H 244 H (70-110) mg/dL Calcium 8.3 L (8.4-10.2) mg/dL 04/15/24 04/16/24 04/16/24 Range/Units 20:04 06:09 07:12 Sodium (137-145) mmol/L Potassium 5.3 H (3.5-5.1) mmol/L Chloride 95 L (98-107) mmol/L Carbon Dioxide 35 H (22-30) mmol/L BUN 66 H (9-20) mg/dL Creatinine 1.46 H (0.66-1.25) mg/dL Glucose 107 H (74-99) mg/dL POC Glucose (mg/dL) 288 H 163 H (70-110) mg/dL Calcium (8.4-10.2) mg/dL Microbiology - Last 24 Hours (Table) 04/14/24 18:15 Wound Culture - Preliminary Foot - Right Presumptive MRSA Assessment and Plan Assessment: 1. Acute kidney injury secondary to ATN secondary to cardiorenal syndrome. No hydronephrosis noted on kidney ultrasound done in December 2023. Creatinine 2.9 on admission and is 1.46 today. UA benign. 2. A-fib with RVR status post cardizem and Amiodarone drip. Now on oral amio darone and metoprolol. 3. Chronic kidney disease stage IIIa with baseline creatinine 1.2-1.4 secondary to nephrosclerosis. 4. Volume overload. Improving with diuresis. 5. Hyperphosphatemia secondary to acute kidney injury. Phosphorus level 7.0 dated April 05, 2024 and 3.1 on 04/07/24. Resolved 6. Morbid obesity. 7. Acute hypoxic respiratory failure. Improved. 8. Acute on chronic diastolic CHF 9. Hyperkalemia. Patient is maintained on Aldactone and potassium supplementation. Potassium discontinued. Hyperglycemia contributing to the hyperkalemia as well. Regular insulin IV 10U administered 04/14/24. (Continue with Aldactone.) 10. Distal right first digit phalanx fracture and radiodense lesion on the heel of the right foot. Surgery following. A piece of glass removed from the plantar aspect of the foot yesterday. Gram stain of the right foot wound shows presumptive MRSA. Plan: Continue Torsemide 10 mg once daily Repeat labs in a.m. Low-salt diet and 1500 cc fluid restriction. Continue to monitor renal function and urine output. Avoid nephrotoxic agents. Agree with the resident's findings, assessment and plan.
--- NOTE | 2024-04-16 11:28 | P.PN ---
Subjective Progress Note Date: 04/16/24 patient is 58-year-old gentleman past medical history significant for congestive heart failure, atrial fibrillation, hypertension, hyperlipidemia, chronic kidney disease, COPD, and morbid obesity who presented the ER because of generalized debility and increasing weakness. Patient stated that he has been feeling like this for the last few weeks. Patient has been complaining of shortness of breath at rest as on exertion. Patient states that he is unable to get around. Denies any chest pain. There is no complaint of palpitations. Patient also complained of increased shakiness and tremors. Denies any fever or chills. There is no complaint of chest pain. There is no complaint orthopnea or PND. Because of the symptoms, patient presented to the ER Initial lab work done in the ER showed WBC 1.1, hemoglobin 15.6, platelet count 240, INR 1, sodium 133, potassium 5.6, chloride 96, BUN 119, creatinine 2.94 glucose 88, calcium 7.7, magnesium 2.6, bilirubin 1, troponin 0.017, proBNP 13,300 EKG done in the ER showed heart rate of 78, irregular rhythm, no ST segment elevation or depression seen, T-wave inversions seen in leads II, III and aVF. V1 to V4. Chest x-ray done in the ER showed mild bibasilar infiltrates, marked cardiomegaly CT head done showed no acute intracranial process CT cervical spine done showed no evidence of any cervical spine pathology X-ray pelvis does not show any evidence of fracture Patient admitted to internal medicine service 04/06. Patient seen and examined. Currently on BiPAP with a 50% FiO2. He is complaining of being short of breath on exertion. Denies any cough. Currently in A-fib, rate poorly controlled. Currently on Cardizem drip. 04/07. Patient seen and examined. Currently on 4 L of oxygen. Patient is diuresing well. Patient is anxious today. 04/08. Patient seen and examined. Patient underwent JESS with cardioversion today. Currently sinus rhythm. Said breathing has improved. 04/09. Patient seen and examined. Blood work done showed WBC 7.1, hemoglobin 16.7, sodium 136, potassium 3.8, BUN 102, creatinine 1.94. Continues to be t achycardic. Currently on amiodarone drip 04/10. Patient seen and examined. Patient continues to be tachycardic, currently off of IV amiodarone and switch to oral amiodarone patient is complaining of shortness of breath on exertion. 04/11 patient seen and examined. Patient complaining of palpitations. Gets short of breath on exertion. 04/12. Patient seen and examined. Complaining of lethargic. Patient heart rate is better controlled. Still gets short of breath on exertion. 04/13/2024 Patient is seen in follow-up today being followed by cardiology and pulmonary. Vascular surgery and infectious disease consulted as there is concerns of lower extremity cellulitis along with extreme right heel pain which appears to be a foreign body as noted on x-ray in the heel. Patient reports he is unsure if he stepped on something but has been causing increased pain over the last few days. Will start cefazolin and appreciate input and recommendations from infectious disease along with vascular surgery. Patient maintained on IV steroids and will continue for now along with DuoNeb treatments and diuretic therapy. 04/14/2024 Patient is seen and evaluated in follow-up and has been evaluated by vascular surgery along with concerns of possible foreign body in the right heel. Patient is unable to bear weight reporting significant 10/10 pain. Infectious disease also consulted and continued on cefazolin with concerns of bilateral lower extremity cellulitis more so on the right. Patient does have chronic peripheral vascular disease with poor circulation. Vascular surgery to reevaluate that he will and continue with local wound care 04/15/2024 Patient seen and evaluated in follow-up today and is status post deep culture and removal of a piece of glass in the right heel with vascular surgery. Cultures remain pending and patient is continued on cefazolin. Significant discoloration of the lower extremities noted and patient and nursing staff report the middle toe that was debrided continues to bleed and patient has been noncompliant and continuing to weight-bear and not keep the lower extremities elevated while at rest. Also encouraged strong reinforcement of fluid restr ictions although patient is noncompliant with this as well and has been rude with staff demanding more water. Patient is afebrile with no reports of chest pain or shortness of breath. Will await cultures and discuss further with infectious disease and vascular surgery regarding discharge planning. 04/16/2024 Patient is evaluated today resting in bed he is essentially lying flat with his right lower extremity elevated. He has significant redness and swelling to this right lower extremity. Dressing is intact he is postoperative removal of glass from the right heel as well as a deep tissue culture. Preliminary cultures are showing presumptive MRSA. He remains on IV daptomycin for this time pending further cultures. He is reporting significant pain to the right lower extremity. Receiving combination of Tylenol 3's with IV morphine. Continues on oral torsemide. Labs today reveal a sodium level of 138, potassium 5.3, BUN of 66, creatinine of 1.46. 95% on 3 L of oxygen. REVIEW OF SYSTEMS: CONSTITUTIONAL: No fever, no malaise,. CARDIOVASCULAR: No chest pain, no palpitations, no syncope. PULMONARY: As mentioned above GASTROINTESTINAL: No diarrhea, no nausea, no vomiting, no abdominal pain. NEUROLOGICAL: No headaches, no weakness, reports of right foot pain and difficulty walking on it with continued bleeding of the toe PHYSICAL EXAMINATION: GENERAL: The patient is alert and oriented x3, not in any acute distress. Well developed, well nourished. Morbidly obese, elderly appearing, ill-appearing HEENT: Pupils are round and equally reacting to light. EOMI. No scleral icterus. No conjunctival pallor. Normocephalic, atraumatic. No pharyngeal erythema. No thyromegaly. CARDIOVASCULAR: S1 and S2 muffled PULMONARY: Diminished breath sound at the bases bilaterally no wheezing or crackles. ABDOMEN: Soft, obese, nontender, nondistended, normoactive bowel sounds. No p alpable organomegaly. MUSCULOSKELETAL: No joint swelling or deformity. EXTREMITIES: No cyanosis, clubbing, or pedal edema. Right heel with swelling and right lower extremity redness and swelling NEUROLOGICAL: Gross neurological examination did not reveal any focal deficits. SKIN: No rashes. Assessment : Acute on chronic hypoxic respiratory failure secondary to CHF and COPD exacerbation Bilateral lower extremity redness and swelling with concerns of cellulitis, more so on the right Right heel pain secondary to a piece of glass lodged in the heel, status post excision of the glass and deep tissue cultures with vascular surgery Acute kidney injury Hyperkalemia, improved post Lokelma Hyponatremia Acute on chronic congestive heart failure with preserved EF, 60 to 65% Persistent atrial fibrillation, status post JESS with cardioversion on 04/08/2024 Hypertension Hyperlipidemia Chronic kidney disease COPD Morbid obesity: BMI 48.7 Obstructive sleep apnea, noncompliant with CPAP outpatient GI prophylaxis DVT prophylaxis Full code Plan: Patient to continue on current medications with cardiology and pulmonary following. Status post removal of glass from right heel. Cultures showing presumptive MRSA patient continues on IV daptomycin. Per nursing staff and patient in the right third toe status postdebridement continues to bleed and vascular surgery will reevaluate. Instructed nursing staff to apply pressure gauze and have instructed patient multiple times to elevate lower extremities and remain off of the area. Continue offloading of that right heel for now will discuss further with vascular surgery regarding treatment plan. Per nursing staff patient has been noncompliant and has been up and walking on that heel and also last night was noted to be removing the dressing and picking at it. It continues to bleed and patient is noncompliant with keeping the legs elevated while at rest. Continue oral prednisone taper Continue sliding scale with Accu-Cheks before meals and at bedtime and will add long-acting and adjust insulins accordingly Will discuss further with other consultations regarding discharge planning, possibly in the next 24 to 48 hours. May require SNF pending antibiotics recommendations from ID. IV versus oral. Patient is extremely noncompliant and rude to staffing with his fluid restrictions and his treatment plan. Due to multiple complex medical issues, overall prognosis is guarded The impression and plan of care has been dictated by Meri Galvan, Nurse Practitioner as directed. Dr. Denisse MD I have performed a history and physical examination and medical decision making of this patient, discussed the same with the dictator, and agree with the dictators assessment and plan as written, documented as a scribe. Based on total visit time, I have performed more than 50% of this visit. Objective - Vital Signs Vital signs: Vital Signs Temp 99.3 F 04/16/24 07:40 Pulse 96 04/16/24 08:22 Resp 20 04/16/24 07:40 BP 126/64 04/16/24 07:40 Pulse Ox 97 04/16/24 07:40 FiO2 50 04/14/24 03:31 Intake & Output 04/15/24 04/16/24 04/16/24 18:59 06:59 18:59 Intake Total 474 Output Total 356 1450 Balance 118 -1450 Weight 157.6 kg Intake: Oral 474 Output: Urine 356 1450 Other: Voiding Method Urinal Urinal Urinal # Voids 3 # Bowel Movements 1 - Labs CBC & Chem 7: 04/11/24 06:10 04/16/24 07:12 Labs: Abnormal Lab Results - Last 24 Hours (Table) 04/15/24 04/15/24 04/15/24 Range/Units 11:38 16:42 20:04 Potassium (3.5-5.1) mmol/L Chloride (98-107) mmol/L Carbon Dioxide (22-30) mmol/L BUN (9-20) mg/dL Creatinine (0.66-1.25) mg/dL Glucose (74-99) mg/dL POC Glucose (mg/dL) 236 H 244 H 288 H (70-110) mg/dL 04/16/24 04/16/24 Range/Units 06:09 07:12 Potassium 5.3 H (3.5-5.1) mmol/L Chloride 95 L (98-107) mmol/L Carbon Dioxide 35 H (22-30) mmol/L BUN 66 H (9-20) mg/dL Creatinine 1.46 H (0.66-1.25) mg/dL Glucose 107 H (74-99) mg/dL POC Glucose (mg/dL) 163 H (70-110) mg/dL Microbiology - Last 24 Hours (Table) 04/14/24 18:15 Wound Culture - Preliminary Foot - Right Presumptive MRSA Assessment and Plan Time with Patient: Less than 30
[2024-04-16 11:58] LABS: Glucose,Whole Blood 224 mg/dL (70-110)
--- NOTE | 2024-04-16 14:33 | P.PN ---
Subjective Progress Note Date: 04/15/24 Principal diagnosis: Reason for follow-up is a right lower extremity cellulitis and right foot foreign body Patient is a 58-year-old male with a past medical history significant for atrial fibrillation asthma heart failure COPD hypertension hyperlipidemia sleep apnea presented to hospital for evaluation of increasing shortness of breath patient also developed increasing redness to the right leg with pain to the right heel with the x-ray showing evidence of foreign body. On today's evaluation that is 04/15/2024, patient has been afebrile, patient is breathing comfortably and is currently on 3 L current oxygen patient denies having any significant cough no chest pain, patient denies nausea vomiting or diarrhea and no abdominal pain still complaining of pain and some bleeding to the right foot post debridement. Patient did have creatinine 1.57 cultures currently pending Objective - Vital Signs Vital signs: Vital Signs Temp 97.9 F 04/15/24 12:33 Pulse 79 04/15/24 13:19 Resp 23 04/15/24 13:19 BP 104/77 04/15/24 12:33 Pulse Ox 97 04/15/24 12:33 FiO2 50 04/14/24 03:31 Intake & Output 04/14/24 04/15/24 04/15/24 18:59 06:59 18:59 Intake Total 1140 400 356 Output Total 2900 1300 356 Balance -1760 -900 0 Intake: Oral 1140 400 356 Output: Urine 2900 1300 356 Other: Voiding Method Urinal Urinal Urinal - Exam GENERAL DESCRIPTION: Middle-age male lying in bed in no distress RESPIRATORY SYSTEM: Unlabored breathing , decreased breath sounds at bases HEART: S1 S2 regular rate and rhythm , ABDOMEN: Soft , no tenderness EXTREMITIES: Right leg is currently dressed minimal drainage on the dressing - Labs CBC & Chem 7: 04/11/24 06:10 04/16/24 07:12 Labs: Abnormal Lab Results - Last 24 Hours (Table) 04/14/24 04/14/24 04/14/24 Range/Units 14:42 16:41 19:38 Sodium (137-145) mmol/L Chloride (98-107) mmol/L Carbon Dioxide (22-30) mmol/L BUN (9-20) mg/dL Creatinine (0.66-1.25) mg/dL Glucose (74-99) mg/dL POC Glucose (mg/dL) 336 H 278 H 293 H (70-110) mg/dL Calcium (8.4-10.2) mg/dL 04/15/24 04/15/24 04/15/24 Range/Units 06:00 08:16 11:38 Sodium 136 L (137-145) mmol/L Chloride 96 L (98-107) mmol/L Carbon Dioxide 39 H (22-30) mmol/L BUN 68 H (9-20) mg/dL Creatinine 1.57 H (0.66-1.25) mg/dL Glucose 128 H (74-99) mg/dL POC Glucose (mg/dL) 149 H 236 H (70-110) mg/dL Calcium 8.3 L (8.4-10.2) mg/dL Assessment and Plan (1) Cellulitis of right lower extremity Current Visit: Yes Status: Acute Code(s): L03.115 - CELLULITIS OF RIGHT LOWER LIMB SNOMED Code(s): 23404492762818748 (2) Leukocytosis Current Visit: Yes Status: Acute Code(s): D72.829 - ELEVATED WHITE BLOOD CELL COUNT, UNSPECIFIED SNOMED Code(s): 659560989 Plan: 1patient with diffuse swelling redness right lower extremity concerning for cellulitis likely from gram-positive skin alesia and this patient also have a painful sore to the right heel concerning for possible foreign body and may be the source of this cellulitis. 2x-rays of the right foot did shows evidence of foreign body more likely responsible for his pain patient is status post surgical removal of the foreign body as well as deep culture which are currently pending 3- patient to continue with cefazolin 2 g every 8 hours on while waiting for the culture to finalize and monitor clinical course closely Dictation was produced using [employer] software. please excuse any grammatical, word or spelling errors.
--- NOTE | 2024-04-16 15:51 | P.PN ---
Subjective Progress Note Date: 04/16/24 Principal diagnosis: Reason for follow-up is a right lower extremity cellulitis and right foot foreign body Patient is a 58-year-old male with a past medical history significant for atrial fibrillation asthma heart failure COPD hypertension hyperlipidemia sleep apnea presented to hospital for evaluation of increasing shortness of breath patient also developed increasing redness to the right leg with pain to the right heel with the x-ray showing evidence of foreign body. On today's evaluation that is 04/16/2024, Patient is afebrile this morning patient denies having any chest pain still complaining of some shortness of breath patient is currently on 2 L nasal cannula oxygen denies significant cough no nausea vomiting abdominal pain still complaining of pain especially when he walks on the right foot. Patient creatinine is 1.464 culture with presumptive MRSA Objective - Vital Signs Vital signs: Vital Signs Temp 97.9 F 04/16/24 11:23 Pulse 99 04/16/24 13:11 Resp 20 04/16/24 11:23 BP 124/88 04/16/24 11:23 Pulse Ox 95 04/16/24 11:23 FiO2 50 04/14/24 03:31 Intake & Output 04/15/24 04/16/24 04/16/24 18:59 06:59 18:59 Intake Total 474 Output Total 356 1450 400 Balance 118 -1450 -400 Weight 157.6 kg Intake: Oral 474 Output: Urine 356 1450 400 Other: Voiding Method Urinal Urinal Urinal # Voids 3 # Bowel Movements 1 - Exam GENERAL DESCRIPTION: Middle-age male lying in bed in no distress RESPIRATORY SYSTEM: Unlabored breathing , decreased breath sounds at bases HEART: S1 S2 regular rate and rhythm , ABDOMEN: Soft , no tenderness EXTREMITIES: Right leg is currently dressed minimal drainage on the dressing - Labs CBC & Chem 7: 04/11/24 06:10 04/16/24 07:12 Labs: Abnormal Lab Results - Last 24 Hours (Table) 04/15/24 04/15/24 04/16/24 Range/Units 16:42 20:04 06:09 Potassium (3.5-5.1) mmol/L Chloride (98-107) mmol/L Carbon Dioxide (22-30) mmol/L BUN (9-20) mg/dL Creatinine (0.66-1.25) mg/dL Glucose (74-99) mg/dL POC Glucose (mg/dL) 244 H 288 H 163 H (70-110) mg/dL 04/16/24 04/16/24 Range/Units 07:12 11:53 Potassium 5.3 H (3.5-5.1) mmol/L Chloride 95 L (98-107) mmol/L Carbon Dioxide 35 H (22-30) mmol/L BUN 66 H (9-20) mg/dL Creatinine 1.46 H (0.66-1.25) mg/dL Glucose 107 H (74-99) mg/dL POC Glucose (mg/dL) 224 H (70-110) mg/dL Microbiology - Last 24 Hours (Table) 04/14/24 18:15 Gram Stain - Preliminary Foot - Right Wound Culture - Preliminary Presumptive MRSA Assessment and Plan (1) Cellulitis of right lower extremity Current Visit: Yes Status: Acute Code(s): L03.115 - CELLULITIS OF RIGHT LOWER LIMB SNOMED Code(s): 98267992072616025 (2) Leukocytosis Current Visit: Yes Status: Acute Code(s): D72.829 - ELEVATED WHITE BLOOD CELL COUNT, UNSPECIFIED SNOMED Code(s): 604744825 Plan: 1patient with diffuse swelling redness right lower extremity concerning for cellulitis likely from gram-positive skin alesia and this patient also have a pa inful sore to the right heel concerning for possible foreign body and may be the source of this cellulitis. 2x-rays of the right foot did shows evidence of foreign body more likely responsible for his pain patient is status post surgical removal of the foreign body as well as deep culture which are currently growing presumptive MRSA 3-we will discontinue cefazolin and start the patient on daptomycin while waiting for final sensitivity Dictation was produced using [employer] dictation software. please excuse any grammatical, word or spelling errors. Time with Patient: Less than 30
[2024-04-16 16:44] LABS: Glucose,Whole Blood 247 mg/dL (70-110)
--- NOTE | 2024-04-16 17:45 | P.PN ---
Subjective Progress Note Date: 04/16/24 This is a 58-year-old white male with morbid obesity, chronic diastolic conges tive heart failure, chronic obstructive pulmonary disease, chronic kidney disease, familiar to my service from previous admissions, patient presented to the ER with few days history of increased shortness of breath, weakness, generalized medical debility. No chest pain, no fever, no chills, no hemo ptysis, workup in the ER included CBC that showed WBC count of 7.1 hemoglobin 15.6, abnormal potassium of 5.6 abnormal renal profile with a BUN of 119 creatinine 2.94 and abnormal BNP level of 13,300. On his initial arrival, patient was in moderate respiratory distress he was placed on BiPAP 14/6/50%, when I saw the patient I recommended an ABG that showed a pO2 of 68 pCO2 55 pH of 7.35 and this was on BiPAP. Chest x-ray showed evidence of mild interstitial edema and the patient is now on Lasix 60 mg IV push twice daily. Patient is on bronchodilators he is also on methylprednisolone 60 mg IV push every 6 hours. Progress note dated April 06, 2024. 58-year-old male seen today in room 364. He was seen in consultation yesterday. The patient has a history of chronic diastolic CHF, and chronic obstructive pulmonary disease among other things. Currently he is on 6 L nasal cannula. No IV fluids. He has a BiPAP device in the room, with settings of 14/6, and 50%. Clinically, the patient states that he starting to feel a bit better. His chest x-ray revealed mild interstitial edema. He was placed on Lasix. He is also getting bronchodilators and corticosteroids. Current laboratory data includes a completely normal CBC. Sodium 137, potassium 4.4, chlorides 97, CO2 34, BUN 97, creatinine 1.60. Glucose is 386. Progress note dated April 07, 2024. 58-year-old male seen in room 364. Currently, the patient is not receiving any IV fluids. The patient is currently on 4 L nasal cannula. He is walking around the room. He did use both BiPAP and nasal O2 last night. He used BiPAP for about 4 hours. His settings were 14/6, and 50%. Current labs include a white count 10.6, hemoglobin 16.3, hematocrit 48.2, and a normal platelet count. Sodium 137, potassium 3.8, chlorides 98, CO2 36, BUN 96, creatinine 1.49. Glucose is 210. Progress note dated April 08, 2024. 58-year-old male who is seen today in room 364. The patient was to have a transesophageal echocardiogram, and cardioversion, by cardiology today. He remains on 4 L of oxygen by nasal cannula. According to the nurses, the patient had a relatively uneventful night. Laboratory data includes a sodium 137, potassium 3.8, chlorides 94, CO2 35, BUN 105, creatinine 1.93. Glucose is 242. Calcium 9.4. Progress note dated April 09, 2024. The patient had a transesophageal echocardiogram and cardioversion, yesterday, but unfortunately, he is back in atrial fibrillation. He is seen today in room 364. He is on amiodarone at 0.5 mg/min. He is getting nasal O2 at 3 L by nasal cannula. The patient did spend some time last night on BiPAP, with settings of 14/6, 50%. Current laboratory data includes a white count 7.9, hemoglobin 16.7, hematocrit 52.3, and a platelet count is normal. Sodium 136, potassium 3.8, chlorides 91, CO2 38, BUN 102, and creatinine 1.94. Glucose is 361. Albumin is 4. Progress note dated April 10, 2024. 58-year-old male seen again in room 364. The patient continues on oxygen, at 3 L. In addition, because of ongoing atrial fibrillation and RVR, the patient continues on amiodarone 0.5 mg/min. The patient does have some mild shortness of breath on exertion, no other complaints. He denies any chest pain. Current labs include a sodium 131, potassium 4.5, chlorides 93, CO2 29, BUN 96, and creatinine 1.81. Calcium is 8.8. Glucose is 293. Progress note dated April 11, 2024. 58-year-old male seen in room 364. The patient is sitting on the side of his bed. He is in no acute distress. The patient continues on 3 L nasal cannula. No IV fluids. Yesterday he was on amiodarone drip. That has been turned off. He does use BiPAP at nighttime, with settings of 14/6, and 50%. Current labs with a white count 17.8, hemoglobin 17.1, hematocrit 52.5, and a platelet count of 151,000. Sodium 135, potassium 4.5, chloride 94, CO2 33, BUN 94, creatinine 1.92. Glucose is 290. Progress note dated April 12, 2024. 58-year-old male who is seen today in room 364. The patient remains on O2 at 3 L. He does use BiPAP at nighttime, with settings of 14/6, and 50%. The patient continues in atrial fibrillation. His lungs are clear to auscultation on exam ination. Labs include sodium 135, potassium 4.9, chlorides 97, CO2 35, BUN 80, creatinine 1.60. Glucose is 229. Calcium is 8.8. 04/13/2024, the patient is on room air oxygen. Awake and alert and communicating. Denies having any significant respiratory difficulties. In terms of diuretics, the patient is on Demadex 10 mg p.o. daily and is also on Aldactone 12.5 mg p.o. daily. He remains on DuoNeb device treatments [id number]. He is on Symbicort as maintenance and IV Solu-Medrol 40 mg every 12 hours. The blood work shows a BUN of 76 with a creatinine of 1.4 and sodium is at 136 and a potassium level of 5.5. Serum bicarb is at 32. WBC count at 17.8 with a hemoglobin of 17 and a platelet count of 151. Most recent chest x-ray was from 04/08/2024 and it showed improved CHF. Patient denies having any other new complaints for now. 04/14/2024, the patient's overall respiratory status is stable. The x-ray of the foot was done yesterday and it showed a radiodense lesion in the heel, suggesting a foreign body. Based on that, the patient will have another evaluation with the surgical team. Meanwhile, respite status is stable. The patient is currently on 3 L of oxygen by nasal cannula with a pulse ox of 98%. The patient remains on DuoNeb updrafts. The patient is on Symbicort. The patient is also on a combination of Aldactone and Demadex. He remains on IV Solu-Medrol 40 mg every 12 hours. Blood work shows a BUN of 69 with a creatinine of 1.4 and a sodium level is 137 and a potassium level is 5.6 and a serum bicarb is at 36. The most recent CBC showed a WBC of 17.9 and a hemoglobin of 17.1. The patient remains on IV cefazolin. The patient remains on Levemir insulin 15 units twice daily plus a sliding scale coverage. Denies having any significant complaints otherwise. Ultrasound Doppler of the lower extremity was negative for DVT. On today's evaluation of 04/15/2024, the patient is calm and comfortable without having any major respiratory difficulties. The patient has no respiratory distress. Patient is currently on 3 L of oxygen by nasal cannula with pulse ox of 96%. No cough or sputum production or chest tightness or wheezing. Limited edema lower extremities bilaterally more so on the right. The patient had another surgical evaluation and a piece of glass was removed from his right heel by the surgical team. Cultures from the right lower extremity are still pending and the patient remains on IV cefazolin. Continues to have discoloration of the right lower extremity and the patient is post surgical debridement. Otherwise, rest of the medication remains unchanged. BUN 16 with a creatinine of 1.5 and a creatinine remained stable. Sodium is at 136, potassium is at 4.8, chloride 96 with a bicarb of 39. 04/16/2024, the patient is working with physical therapy. No new complaints. The wound cultures showed MRSA and the patient was started on daptomycin. IV cefazolin has been discontinued. BUN 66 with a creatinine 1.4 and sodium levels at 138 and a potassium level is at 5.3. He is afebrile hemodynamically stable. He remains on 2 L of oxygen by nasal cannula with a pulse ox of 95%. The patient remains on anticoagulation with Eliquis. The patient remains on Demadex 10 mg p.o. daily. Rest of the medication remain unchanged. On a prednisone burst taper starting with 30 mg as part of his best burst taper. Objective - Vital Signs Vital signs: Vital Signs Temp 99.3 F 04/16/24 07:40 Pulse 96 04/16/24 08:22 Resp 20 04/16/24 07:40 BP 126/64 04/16/24 07:40 Pulse Ox 97 04/16/24 07:40 FiO2 50 04/14/24 03:31 Intake & Output 04/15/24 04/16/24 04/16/24 18:59 06:59 18:59 Intake Total 474 Output Total 356 1450 Balance 118 -1450 Weight 157.6 kg Intake: Oral 474 Output: Urine 356 1450 Other: Voiding Method Urinal Urinal Urinal # Voids 3 # Bowel Movements 1 - Exam No acute distress, oriented 3. No audible wheezing or use of accessory muscles. Currently on room air oxygen HEENT examination is grossly unremarkable. Mucous membranes are moist. No oral lesions. Neck supple. Full range of motion. No adenopathy thyromegaly or neck vein distention. Cardiovascular examination reveals an irregular rhythm and rate. S1-S2 normal. No S3 or S4. No discernible murmur noted. Lungs reveal diminished bilateral breath sounds. Minimal crackles and rhonchi noted. Abdomen soft bowel sounds are heard. No masses or tenderness. Extremities reveal 3+ bilateral lower extremity pitting edema. Skin reveals multiple superficial venous stasis ulcers. Neurologic examination is brief but nonfocal. - Labs CBC & Chem 7: 04/11/24 06:10 04/16/24 07:12 Labs: Abnormal Lab Results - Last 24 Hours (Table) 04/15/24 04/15/24 04/15/24 Range/Units 11:38 16:42 20:04 Potassium (3.5-5.1) mmol/L Chloride (98-107) mmol/L Carbon Dioxide (22-30) mmol/L BUN (9-20) mg/dL Creatinine (0.66-1.25) mg/dL Glucose (74-99) mg/dL POC Glucose (mg/dL) 236 H 244 H 288 H (70-110) mg/dL 04/16/24 04/16/24 Range/Units 06:09 07:12 Potassium 5.3 H (3.5-5.1) mmol/L Chloride 95 L (98-107) mmol/L Carbon Dioxide 35 H (22-30) mmol/L BUN 66 H (9-20) mg/dL Creatinine 1.46 H (0.66-1.25) mg/dL Glucose 107 H (74-99) mg/dL POC Glucose (mg/dL) 163 H (70-110) mg/dL Microbiology - Last 24 Hours (Table) 04/14/24 18:15 Wound Culture - Preliminary Foot - Right Presumptive MRSA Assessment and Plan Plan: Acute on chronic hypoxemic and hypercapnic respiratory failure, secondary to diastolic CHF exacerbation,currently on a combination of Demadex and Aldactone, currently on 3 L of oxygen by nasal cannula with adequate oxygenation Atrial fibrillation with rapid ventricular response, S/P JESS/cardioversion, April 08, 2024. The patient remains on anticoagulation with Eliquis. The patient is also on amiodarone 400 mg p.o. twice a day and metoprolol 150 mg p.o. twice a day Very severe COPD, with an FEV1 that is 22% of predicted. Obstructive sleep apnea syndrome, patient noncompliant with noninvasive positive airway pressure device. Morbid obesity with a BMI of 48.7 kg/m. Acute on chronic kidney disease. Hyperkalemia. Chronic lower extremity edema, with multiple venous stasis ulcers. History of hypertension. History of dyslipidemia. Former tobacco dependence. callus right foot second toe also there is pain at pain on the right heel status post removal of a foreign body, a piece of glass with ongoing surgical debridement. The wound cultures positive for MRSA. Cellulitis of the right lower extremity, Plan Clinically stable. Foreign body was removed from the right heel Continue IV daptomycin Continue the combination of amiodarone 400 mg twice a day metoprolol 100 mg twice a day and anticoagulation with Eliquis Continue Demadex 10 mg p.o. daily and Aldactone 12.5 mg p.o. daily Surgery to reevaluate the right foot, may need also an orthopedic evaluation regarding the possibility of a fracture. Incentive spirometer Renal function stable Volume status has been improved prednisone burst taper starting with 30 mg Will continue to follow
[2024-04-16 20:07] LABS: Glucose,Whole Blood 247 mg/dL (70-110)
[2024-04-17 06:09] LABS: Glucose,Whole Blood 141 mg/dL (70-110)
[2024-04-17 07:21] LABS: African American GFR (CKD) 59 (>60 ml/min/1.73 sqM); Anion Gap 2 mmol/L; Blood Urea Nitrogen 63 mg/dL (9-20); Calcium 8.2 mg/dL (8.4-10.2); Carbon Dioxide 39 mmol/L (22-30); Chloride 94 mmol/L (98-107); Glucose 93 mg/dL (74-99); Magnesium 2.1 mg/dL (1.6-2.3); Non-African American GFR(CKD) 51 (>60 ml/min/1.73 sqM); Potassium 4.7 mmol/L (3.5-5.1); Sodium 135 mmol/L (137-145)
--- NOTE | 2024-04-17 09:31 | P.PN ---
Subjective Progress Note Date: 04/17/24 Principal diagnosis: DEBRA secondary to ATN and cardiorenal syndrome Hosiptal course: Patient is a 58-year-old male with history of chronic diastolic CHF, hypertension, A. fib, morbid obesity, COPD presented to the ED with shortness of breath on 04/05 and he was in volume overload. He was diagnosed with Acute hypoxic respiratory failure, atrial fibrillation with a rapid ventricular rate, and cardiorenal syndrome. 04/08/24 Patient seen today. Denies any new complaints. Has a good urine output. He had JESS with cardioversion today for Afib with RVR. Labs today show Na 137, K 3.8, BUN 105, Creatinine 1.93, GFR 37. Chest xray done today shows much improved features of congestive failure. 04/09/24 Patient evaluated today. He had JESS with cardioversion yesterday. But his rhythm is back to AFib with RVR and he is currently on amiodarone drip per cardiology. Denies chest pain, shortness of breath. Has the carroll catheter in place and reports discomfort associated with it. Labs today show Na 136, K 3.8, BUN 102. creatinine 1.94 and GFR 37. 04/10/24 Patient was evaluated today in room 364. He complains of some palpitations. Amiodarone drip 0.5mg/hr will now be changed to oral amiodarone per cardiology. Denies chest pain,shortness of breath, abdominal pain. He notes discomfort with the carroll catheter. Labs today Na 131, K 4.5, BUN 96, creatinine 1.81, GFR 40. 04/11/24 Patient is seen in follow-up for acute kidney injury on chronic kidney disease. Renal function improving. On PO torsemide Currently on room air. No active complaints. 04/12/24 Patient is seen in follow-up for acute kidney injury on chronic kidney disease. Renal function improving. On PO torsemide Currently on room air. No active complaints. 04/13/24 Patient evaluated today. Denies chest pain, shortness of breath, abdominal pain. He mentions doing well after the Carroll catheter was removed. No new complaints. Labs on 04/12/24 show sodium 135, potassium 4.9, BUN 80, creatinine 1.6, bicarb 35. No new labs today. 04/14/24 Patient seen today. He complains of pain in his right foot. Foot xray shows fracture of distal right first digit phalanx and radiodense lesion in the heel. Venous doppler doesn't show DVT. Denies abdominal pain, dyusria, shortness of breath, chest pain. Labs today show Na 137, K 5.6, bicarb 36, AG 4, BUN 69, creatinine 1.42. 04/15/24 Patient evaluated today. No new Complaints. Labs today show Na 136,K 4.8, bicarb 39, UN 68, creatinine 1.57, GFR 47. His glucose today is 128. He was administered 10 units regular IV insulin yesterday to control hyperglycemia(366) and hyperkalemia(5.6). 04/16/24 Patient seen today. Complains of pain in the right foot. Mentions of having a low stream of urine. Denies abdominal pain, shortness of breath. Labs today show Na 138, K 5.3, bicarb 35, BUn 66, creatinine 1.46, GFR 51, glucose 107. 24hr urine output 4200ml. 04/17/2024 Patient evaluated today. Complains of pain in the right foot. Denies abdominal pain, shortness of breath, chest pain. Reports having a low urine stream chronically. Labs today show sodium 135, potassium 4.7, bicarb 39, creatinine 1.46. 24-hour urine output was 1806 mL. Objective - Vital Signs Vital signs: Vital Signs Temp 98.0 F 04/17/24 04:00 Pulse 75 04/17/24 04:00 Resp 18 04/17/24 04:00 BP 131/77 04/17/24 04:00 Pulse Ox 95 04/17/24 04:00 FiO2 50 04/14/24 03:31 Intake & Output 04/16/24 04/17/24 04/17/24 18:59 06:59 18:59 Intake Total 1860 118 Output Total 400 1600 Balance 1460 -1600 118 Weight 160.3 kg Intake: Oral 1860 118 Output: Urine 400 1600 Other: Voiding Method Urinal Urinal - Exam General: nontoxic, no distress, appears at stated age, obese Derm: warm, dry Cardiovascular: reg S1-S2 Lungs: diminished breath sounds b/l no accessory muscle use Abdominal: soft, non-tender to palpataion Extremities: right foot and ankle bandaged, right lower leg is red and edematous, varicose veins and venous stasis ulcer on LE b/l Neuro: Alert, Oriented - Labs CBC & Chem 7: 04/19/24 07:36 04/19/24 06:49 Labs: Abnormal Lab Results - Last 24 Hours (Table) 04/16/24 04/16/24 04/16/24 Range/Units 11:53 16:42 20:05 Sodium (137-145) mmol/L Chloride (98-107) mmol/L Carbon Dioxide (22-30) mmol/L BUN (9-20) mg/dL Creatinine (0.66-1.25) mg/dL POC Glucose (mg/dL) 224 H 247 H 247 H (70-110) mg/dL Calcium (8.4-10.2) mg/dL 04/17/24 04/17/24 Range/Units 06:03 06:19 Sodium 135 L (137-145) mmol/L Chloride 94 L (98-107) mmol/L Carbon Dioxide 39 H (22-30) mmol/L BUN 63 H (9-20) mg/dL Creatinine 1.46 H (0.66-1.25) mg/dL POC Glucose (mg/dL) 141 H (70-110) mg/dL Calcium 8.2 L (8.4-10.2) mg/dL Microbiology - Last 24 Hours (Table) 04/14/24 18:15 Gram Stain - Final Foot - Right Wound Culture - Final Methicillin resist S. aureus Assessment and Plan Assessment: 1. Acute kidney injury secondary to ATN secondary to cardiorenal syndrome. No hydronephrosis noted on kidney ultrasound done in December 2023. Creatinine 2.9 on admission and is 1.46 today. UA benign. 2. A-fib with RVR status post cardizem and Amiodarone drip. Now on oral amiodarone and metoprolol. 3. Chronic kidney disease stage IIIa with baseline creatinine 1.2-1.4 secondary to nephrosclerosis. 4. Volume overload. Improving with diuresis. 5. Hyperphosphatemia secondary to acute kidney injury. Phosphorus level 7.0 dated April 05, 2024 and 3.1 on 04/07/24. Resolved 6. Morbid obesity. 7. Acute hypoxic respiratory failure. Improved. 8. Acute on chronic diastolic CHF 9. Hyperkalemia. Patient was maintained on Aldactone and potassium supplementation. Potassium discontinued. Hyperglycemia contributing to the hyperkalemia as well. Regular insulin IV 10U administered 04/14/24. Aldactone discontinued. 10. Distal right first digit phalanx fracture and radiodense lesion on the heel of the right foot. Surgery following. A piece of glass removed from the plantar aspect of the foot yesterday. Gram stain of the right foot wound shows MRSA. Patient maintained on daptomycin. Plan: Continue Torsemide 10 mg once daily Repeat labs in a.m. Low-salt diet and 1500 cc fluid restriction. Continue to monitor renal function and urine output. Avoid nephrotoxic agents. Agree with nellieet's findings assessment and plan.
[2024-04-17 11:43] LABS: Glucose,Whole Blood 160 mg/dL (70-110)
--- NOTE | 2024-04-17 13:40 | P.PN ---
Subjective Progress Note Date: 04/17/24 This is a 58-year-old white male with morbid obesity, chronic diastolic conges tive heart failure, chronic obstructive pulmonary disease, chronic kidney disease, familiar to my service from previous admissions, patient presented to the ER with few days history of increased shortness of breath, weakness, generalized medical debility. No chest pain, no fever, no chills, no hemo ptysis, workup in the ER included CBC that showed WBC count of 7.1 hemoglobin 15.6, abnormal potassium of 5.6 abnormal renal profile with a BUN of 119 creatinine 2.94 and abnormal BNP level of 13,300. On his initial arrival, patient was in moderate respiratory distress he was placed on BiPAP 14/6/50%, when I saw the patient I recommended an ABG that showed a pO2 of 68 pCO2 55 pH of 7.35 and this was on BiPAP. Chest x-ray showed evidence of mild interstitial edema and the patient is now on Lasix 60 mg IV push twice daily. Patient is on bronchodilators he is also on methylprednisolone 60 mg IV push every 6 hours. Progress note dated April 06, 2024. 58-year-old male seen today in room 364. He was seen in consultation yesterday. The patient has a history of chronic diastolic CHF, and chronic obstructive pulmonary disease among other things. Currently he is on 6 L nasal cannula. No IV fluids. He has a BiPAP device in the room, with settings of 14/6, and 50%. Clinically, the patient states that he starting to feel a bit better. His chest x-ray revealed mild interstitial edema. He was placed on Lasix. He is also getting bronchodilators and corticosteroids. Current laboratory data includes a completely normal CBC. Sodium 137, potassium 4.4, chlorides 97, CO2 34, BUN 97, creatinine 1.60. Glucose is 386. Progress note dated April 07, 2024. 58-year-old male seen in room 364. Currently, the patient is not receiving any IV fluids. The patient is currently on 4 L nasal cannula. He is walking around the room. He did use both BiPAP and nasal O2 last night. He used BiPAP for about 4 hours. His settings were 14/6, and 50%. Current labs include a white count 10.6, hemoglobin 16.3, hematocrit 48.2, and a normal platelet count. Sodium 137, potassium 3.8, chlorides 98, CO2 36, BUN 96, creatinine 1.49. Glucose is 210. Progress note dated April 08, 2024. 58-year-old male who is seen today in room 364. The patient was to have a transesophageal echocardiogram, and cardioversion, by cardiology today. He remains on 4 L of oxygen by nasal cannula. According to the nurses, the patient had a relatively uneventful night. Laboratory data includes a sodium 137, potassium 3.8, chlorides 94, CO2 35, BUN 105, creatinine 1.93. Glucose is 242. Calcium 9.4. Progress note dated April 09, 2024. The patient had a transesophageal echocardiogram and cardioversion, yesterday, but unfortunately, he is back in atrial fibrillation. He is seen today in room 364. He is on amiodarone at 0.5 mg/min. He is getting nasal O2 at 3 L by nasal cannula. The patient did spend some time last night on BiPAP, with settings of 14/6, 50%. Current laboratory data includes a white count 7.9, hemoglobin 16.7, hematocrit 52.3, and a platelet count is normal. Sodium 136, potassium 3.8, chlorides 91, CO2 38, BUN 102, and creatinine 1.94. Glucose is 361. Albumin is 4. Progress note dated April 10, 2024. 58-year-old male seen again in room 364. The patient continues on oxygen, at 3 L. In addition, because of ongoing atrial fibrillation and RVR, the patient continues on amiodarone 0.5 mg/min. The patient does have some mild shortness of breath on exertion, no other complaints. He denies any chest pain. Current labs include a sodium 131, potassium 4.5, chlorides 93, CO2 29, BUN 96, and creatinine 1.81. Calcium is 8.8. Glucose is 293. Progress note dated April 11, 2024. 58-year-old male seen in room 364. The patient is sitting on the side of his bed. He is in no acute distress. The patient continues on 3 L nasal cannula. No IV fluids. Yesterday he was on amiodarone drip. That has been turned off. He does use BiPAP at nighttime, with settings of 14/6, and 50%. Current labs with a white count 17.8, hemoglobin 17.1, hematocrit 52.5, and a platelet count of 151,000. Sodium 135, potassium 4.5, chloride 94, CO2 33, BUN 94, creatinine 1.92. Glucose is 290. Progress note dated April 12, 2024. 58-year-old male who is seen today in room 364. The patient remains on O2 at 3 L. He does use BiPAP at nighttime, with settings of 14/6, and 50%. The patient continues in atrial fibrillation. His lungs are clear to auscultation on exam ination. Labs include sodium 135, potassium 4.9, chlorides 97, CO2 35, BUN 80, creatinine 1.60. Glucose is 229. Calcium is 8.8. 04/13/2024, the patient is on room air oxygen. Awake and alert and communicating. Denies having any significant respiratory difficulties. In terms of diuretics, the patient is on Demadex 10 mg p.o. daily and is also on Aldactone 12.5 mg p.o. daily. He remains on DuoNeb device treatments [id number]. He is on Symbicort as maintenance and IV Solu-Medrol 40 mg every 12 hours. The blood work shows a BUN of 76 with a creatinine of 1.4 and sodium is at 136 and a potassium level of 5.5. Serum bicarb is at 32. WBC count at 17.8 with a hemoglobin of 17 and a platelet count of 151. Most recent chest x-ray was from 04/08/2024 and it showed improved CHF. Patient denies having any other new complaints for now. 04/14/2024, the patient's overall respiratory status is stable. The x-ray of the foot was done yesterday and it showed a radiodense lesion in the heel, suggesting a foreign body. Based on that, the patient will have another evaluation with the surgical team. Meanwhile, respite status is stable. The patient is currently on 3 L of oxygen by nasal cannula with a pulse ox of 98%. The patient remains on DuoNeb updrafts. The patient is on Symbicort. The patient is also on a combination of Aldactone and Demadex. He remains on IV Solu-Medrol 40 mg every 12 hours. Blood work shows a BUN of 69 with a creatinine of 1.4 and a sodium level is 137 and a potassium level is 5.6 and a serum bicarb is at 36. The most recent CBC showed a WBC of 17.9 and a hemoglobin of 17.1. The patient remains on IV cefazolin. The patient remains on Levemir insulin 15 units twice daily plus a sliding scale coverage. Denies having any significant complaints otherwise. Ultrasound Doppler of the lower extremity was negative for DVT. On today's evaluation of 04/15/2024, the patient is calm and comfortable without having any major respiratory difficulties. The patient has no respiratory distress. Patient is currently on 3 L of oxygen by nasal cannula with pulse ox of 96%. No cough or sputum production or chest tightness or wheezing. Limited edema lower extremities bilaterally more so on the right. The patient had another surgical evaluation and a piece of glass was removed from his right heel by the surgical team. Cultures from the right lower extremity are still pending and the patient remains on IV cefazolin. Continues to have discoloration of the right lower extremity and the patient is post surgical debridement. Otherwise, rest of the medication remains unchanged. BUN 16 with a creatinine of 1.5 and a creatinine remained stable. Sodium is at 136, potassium is at 4.8, chloride 96 with a bicarb of 39. 04/16/2024, the patient is working with physical therapy. No new complaints. The wound cultures showed MRSA and the patient was started on daptomycin. IV cefazolin has been discontinued. BUN 66 with a creatinine 1.4 and sodium levels at 138 and a potassium level is at 5.3. He is afebrile hemodynamically stable. He remains on 2 L of oxygen by nasal cannula with a pulse ox of 95%. The patient remains on anticoagulation with Eliquis. The patient remains on Demadex 10 mg p.o. daily. Rest of the medication remain unchanged. On a prednisone burst taper starting with 30 mg as part of his best burst taper. 04/17/2024, the patient is being seen for a follow-up. Complaining of generalized bodyaches. No respiratory difficulties. Remains on 3 Suboxone by nasal cannula. Remains on the same diuretic dose and the patient is on Demadex 10 mg p.o. daily. Remains on the same antibiotic coverage which includes IV daptomycin. Sodium levels at 135, BUN 63 with a creatinine of 1.4 and a potassium level is at 4.7. Wound culture was positive for MRSA. No altered mentation. Mobility is limited and the patient is working with physical therapy. Objective - Vital Signs Vital signs: Vital Signs Temp 98.0 F 04/17/24 04:00 Pulse 75 04/17/24 04:00 Resp 18 04/17/24 04:00 BP 131/77 04/17/24 04:00 Pulse Ox 95 04/17/24 04:00 FiO2 50 04/14/24 03:31 Intake & Output 04/16/24 04/17/24 04/17/24 18:59 06:59 18:59 Intake Total 1860 118 Output Total 400 1600 Balance 1460 -1600 118 Weight 160.3 kg Intake: Oral 1860 118 Output: Urine 400 1600 Other: Voiding Method Urinal Urinal - Exam No acute distress, oriented 3. No audible wheezing or use of accessory muscles. Currently on room air oxygen HEENT examination is grossly unremarkable. Mucous membranes are moist. No oral lesions. Neck supple. Full range of motion. No adenopathy thyromegaly or neck vein distention. Cardiovascular examination reveals an irregular rhythm and rate. S1-S2 normal. No S3 or S4. No discernible murmur noted. Lungs reveal diminished bilateral breath sounds. Minimal crackles and rhonchi noted. Abdomen soft bowel sounds are heard. No masses or tenderness. Extremities reveal 3+ bilateral lower extremity pitting edema. Skin reveals multiple superficial venous stasis ulcers. Neurologic examination is brief but nonfocal. - Labs CBC & Chem 7: 04/11/24 06:10 04/17/24 06:19 Labs: Abnormal Lab Results - Last 24 Hours (Table) 04/16/24 04/16/24 04/16/24 Range/Units 11:53 16:42 20:05 Sodium (137-145) mmol/L Chloride (98-107) mmol/L Carbon Dioxide (22-30) mmol/L BUN (9-20) mg/dL Creatinine (0.66-1.25) mg/dL POC Glucose (mg/dL) 224 H 247 H 247 H (70-110) mg/dL Calcium (8.4-10.2) mg/dL 04/17/24 04/17/24 Range/Units 06:03 06:19 Sodium 135 L (137-145) mmol/L Chloride 94 L (98-107) mmol/L Carbon Dioxide 39 H (22-30) mmol/L BUN 63 H (9-20) mg/dL Creatinine 1.46 H (0.66-1.25) mg/dL POC Glucose (mg/dL) 141 H (70-110) mg/dL Calcium 8.2 L (8.4-10.2) mg/dL Microbiology - Last 24 Hours (Table) 04/14/24 18:15 Gram Stain - Final Foot - Right Wound Culture - Final Methicillin resist S. aureus Assessment and Plan Plan: Acute on chronic hypoxemic and hypercapnic respiratory failure, secondary to diastolic CHF exacerbation,currently on a combination of Demadex and Aldactone, currently on 3 L of oxygen by nasal cannula with adequate oxygenation Atrial fibrillation with rapid ventricular response, S/P JESS/cardioversion, April 08, 2024. The patient remains on anticoagulation with Eliquis. The patient is also on amiodarone 400 mg p.o. twice a day and metoprolol 150 mg p.o. twice a day Very severe COPD, with an FEV1 that is 22% of predicted. Obstructive sleep apnea syndrome, patient noncompliant with noninvasive positive airway pressure device. Morbid obesity with a BMI of 48.7 kg/m. Acute on chronic kidney disease. Hyperkalemia. Chronic lower extremity edema, with multiple venous stasis ulcers. History of hypertension. History of dyslipidemia. Former tobacco dependence. callus right foot second toe also there is pain at pain on the right heel status post removal of a foreign body, a piece of glass with ongoing surgical debride ment. The wound cultures positive for MRSA. Cellulitis of the right lower extremity, Plan Clinically stable and overall pulmonary status is also stable. Oxygen requirements are unchanged. Foreign body was removed from the right heel Continue IV daptomycin Continue the combination of amiodarone 400 mg twice a day metoprolol 100 mg twice a day and anticoagulation with Eliquis Continue Demadex 10 mg p.o. daily and Aldactone 12.5 mg p.o. daily Surgery to reevaluate the right foot, may need also an orthopedic evaluation regarding the possibility of a fracture. Incentive spirometer Renal function stable Volume status has been improved prednisone burst taper starting with 30 mg Working with physical therapy Will continue to follow
--- NOTE | 2024-04-17 14:21 | P.PN ---
Subjective Progress Note Date: 04/17/24 patient is 58-year-old gentleman past medical history significant for congestive heart failure, atrial fibrillation, hypertension, hyperlipidemia, chronic kidney disease, COPD, and morbid obesity who presented the ER because of generalized debility and increasing weakness. Patient stated that he has been feeling like this for the last few weeks. Patient has been complaining of shortness of breath at rest as on exertion. Patient states that he is unable to get around. Denies any chest pain. There is no complaint of palpitations. Patient also complained of increased shakiness and tremors. Denies any fever or chills. There is no complaint of chest pain. There is no complaint orthopnea or PND. Because of the symptoms, patient presented to the ER Initial lab work done in the ER showed WBC 1.1, hemoglobin 15.6, platelet count 240, INR 1, sodium 133, potassium 5.6, chloride 96, BUN 119, creatinine 2.94 glucose 88, calcium 7.7, magnesium 2.6, bilirubin 1, troponin 0.017, proBNP 13,300 EKG done in the ER showed heart rate of 78, irregular rhythm, no ST segment elevation or depression seen, T-wave inversions seen in leads II, III and aVF. V1 to V4. Chest x-ray done in the ER showed mild bibasilar infiltrates, marked cardiomegaly CT head done showed no acute intracranial process CT cervical spine done showed no evidence of any cervical spine pathology X-ray pelvis does not show any evidence of fracture Patient admitted to internal medicine service 04/06. Patient seen and examined. Currently on BiPAP with a 50% FiO2. He is complaining of being short of breath on exertion. Denies any cough. Currently in A-fib, rate poorly controlled. Currently on Cardizem drip. 04/07. Patient seen and examined. Currently on 4 L of oxygen. Patient is diuresing well. Patient is anxious today. 04/08. Patient seen and examined. Patient underwent JESS with cardioversion today. Currently sinus rhythm. Said breathing has improved. 04/09. Patient seen and examined. Blood work done showed WBC 7.1, hemoglobin 16.7, sodium 136, potassium 3.8, BUN 102, creatinine 1.94. Continues to be t achycardic. Currently on amiodarone drip 04/10. Patient seen and examined. Patient continues to be tachycardic, currently off of IV amiodarone and switch to oral amiodarone patient is complaining of shortness of breath on exertion. 04/11 patient seen and examined. Patient complaining of palpitations. Gets short of breath on exertion. 04/12. Patient seen and examined. Complaining of lethargic. Patient heart rate is better controlled. Still gets short of breath on exertion. 04/13/2024 Patient is seen in follow-up today being followed by cardiology and pulmonary. Vascular surgery and infectious disease consulted as there is concerns of lower extremity cellulitis along with extreme right heel pain which appears to be a foreign body as noted on x-ray in the heel. Patient reports he is unsure if he stepped on something but has been causing increased pain over the last few days. Will start cefazolin and appreciate input and recommendations from infectious disease along with vascular surgery. Patient maintained on IV steroids and will continue for now along with DuoNeb treatments and diuretic therapy. 04/14/2024 Patient is seen and evaluated in follow-up and has been evaluated by vascular surgery along with concerns of possible foreign body in the right heel. Patient is unable to bear weight reporting significant 10/10 pain. Infectious disease also consulted and continued on cefazolin with concerns of bilateral lower extremity cellulitis more so on the right. Patient does have chronic peripheral vascular disease with poor circulation. Vascular surgery to reevaluate that he will and continue with local wound care 04/15/2024 Patient seen and evaluated in follow-up today and is status post deep culture and removal of a piece of glass in the right heel with vascular surgery. Cultures remain pending and patient is continued on cefazolin. Significant discoloration of the lower extremities noted and patient and nursing staff report the middle toe that was debrided continues to bleed and patient has been noncompliant and continuing to weight-bear and not keep the lower extremities elevated while at rest. Also encouraged strong reinforcement of fluid restr ictions although patient is noncompliant with this as well and has been rude with staff demanding more water. Patient is afebrile with no reports of chest pain or shortness of breath. Will await cultures and discuss further with infectious disease and vascular surgery regarding discharge planning. 04/16/2024 Patient is evaluated today resting in bed he is essentially lying flat with his right lower extremity elevated. He has significant redness and swelling to this right lower extremity. Dressing is intact he is postoperative removal of glass from the right heel as well as a deep tissue culture. Preliminary cultures are showing presumptive MRSA. He remains on IV daptomycin for this time pending further cultures. He is reporting significant pain to the right lower extremity. Receiving combination of Tylenol 3's with IV morphine. Continues on oral torsemide. Labs today reveal a sodium level of 138, potassium 5.3, BUN of 66, creatinine of 1.46. 95% on 3 L of oxygen. 04/17/2024 Patient is eval today in follow-up on the medical floor. He reports significant pain to his right foot. He is having increased drainage as well as swelling and redness of the right lower extremity. Continues on IV daptomycin with culture showing MRSA. Sodium level was 135, BUN of 63, creatinine of 1.46. He continues on 3 L of oxygen via nasal cannula. REVIEW OF SYSTEMS: CONSTITUTIONAL: No fever, no malaise,. CARDIOVASCULAR: No chest pain, no palpitations, no syncope. PULMONARY: As mentioned above GASTROINTESTINAL: No diarrhea, no nausea, no vomiting, no abdominal pain. NEUROLOGICAL: No headaches, no weakness, reports of right foot pain and difficulty walking on it with continued bleeding of the toe PHYSICAL EXAMINATION: GENERAL: The patient is alert and oriented x3, not in any acute distress. Well developed, well nourished. Morbidly obese, elderly appearing, ill-appearing HEENT: Pupils are round and equally reacting to light. EOMI. No scleral icterus. No conjunctival pallor. Normocephalic, atraumatic. No pharyngeal erythema. No thyromegaly. CARDIOVASCULAR: S1 and S2 muffled PULMONARY: Diminished breath sound at the bases bilaterally no wheezing or crackles. ABDOMEN: Soft, obese, nontender, nondistended, normoactive bowel sounds. No palpable organomegaly. MUSCULOSKELETAL: No joint swelling or deformity. EXTREMITIES: No cyanosis, clubbing, or pedal edema. Right heel with swelling and right lower extremity redness and swelling NEUROLOGICAL: Gross neurological examination did not reveal any focal deficits. SKIN: No rashes. Significant erythema and swelling of the right lower extremity Assessment : Acute on chronic hypoxic respiratory failure secondary to CHF and COPD exacerbation Bilateral lower extremity redness and swelling with concerns of cellulitis, more so on the right Right heel pain secondary to a piece of glass lodged in the heel, status post excision of the glass and deep tissue cultures with vascular surgery Acute kidney injury Hyperkalemia, improved post Lokelma Hyponatremia Acute on chronic congestive heart failure with preserved EF, 60 to 65% Persistent atrial fibrillation, status post JESS with cardioversion on 04/08/2024 Hypertension Hyperlipidemia Chronic kidney disease COPD Morbid obesity: BMI 48.7 Obstructive sleep apnea, noncompliant with CPAP outpatient GI prophylaxis DVT prophylaxis Full code Plan: Patient to continue on current medications with cardiology and pulmonary following. Status post removal of glass from right heel. Cultures showing presumptive MRSA patient continues on IV daptomycin. Per nursing staff and patient in the right third toe status postdebridement continues to bleed and vascular surgery will reevaluate. Instructed nursing staff to apply pressure gauze and have instructed patient multiple times to elevate lower extremities and remain off of the area. Patient to continue with pressure offloading of the right heel. Vascular surgery to reevaluate the patient as he is having worsening drainage and swelling of the right lower extremity. Continue oral prednisone taper Continue sliding scale with Accu-Cheks before meals and at bedtime and will add long-acting and adjust insulins accordingly Will discuss further with other consultations regarding discharge planning, possibly in the next 24 to 48 hours. May require SNF pending antibiotics recommendations from ID. IV versus oral. Patient is extremely noncompliant and rude to staffing with his fluid restrictions and his treatment plan. Due to multiple complex medical issues, overall prognosis is guarded The impression and plan of care has been dictated by Meri Galvan, Nurse Practitioner as directed. Dr. Denisse MD I have performed a history and physical examination and medical decision making of this patient, discussed the same with the dictator, and agree with the dictators assessment and plan as written, documented as a scribe. Based on total visit time, I have performed more than 50% of this visit. Objective - Vital Signs Vital signs: Vital Signs Temp 98.0 F 04/17/24 04:00 Pulse 71 04/17/24 08:00 Resp 18 04/17/24 08:00 BP 124/73 04/17/24 08:00 Pulse Ox 98 04/17/24 08:00 FiO2 50 04/14/24 03:31 Intake & Output 04/16/24 04/17/24 04/17/24 18:59 06:59 18:59 Intake Total 1860 236 Output Total 400 1600 Balance 1460 -1600 236 Weight 160.3 kg Intake: Oral 1860 236 Output: Urine 400 1600 Other: Voiding Method Urinal Urinal Urinal - Labs CBC & Chem 7: 04/11/24 06:10 04/17/24 06:19 Labs: Abnormal Lab Results - Last 24 Hours (Table) 04/16/24 04/16/24 04/17/24 Range/Units 16:42 20:05 06:03 Sodium (137-145) mmol/L Chloride (98-107) mmol/L Carbon Dioxide (22-30) mmol/L BUN (9-20) mg/dL Creatinine (0.66-1.25) mg/dL POC Glucose (mg/dL) 247 H 247 H 141 H (70-110) mg/dL Calcium (8.4-10.2) mg/dL 04/17/24 04/17/24 Range/Units 06:19 11:41 Sodium 135 L (137-145) mmol/L Chloride 94 L (98-107) mmol/L Carbon Dioxide 39 H (22-30) mmol/L BUN 63 H (9-20) mg/dL Creatinine 1.46 H (0.66-1.25) mg/dL POC Glucose (mg/dL) 160 H (70-110) mg/dL Calcium 8.2 L (8.4-10.2) mg/dL Microbiology - Last 24 Hours (Table) 04/14/24 18:15 Gram Stain - Final Foot - Right Wound Culture - Final Methicillin resist S. aureus Assessment and Plan Time with Patient: Less than 30
--- NOTE | 2024-04-17 15:10 | P.PN ---
Subjective Progress Note Date: 04/17/24 Principal diagnosis: Reason for follow-up is a right lower extremity cellulitis and right foot foreign body Patient is a 58-year-old male with a past medical history significant for atrial fibrillation asthma heart failure COPD hypertension hyperlipidemia sleep apnea presented to hospital for evaluation of increasing shortness of breath patient also developed increasing redness to the right leg with pain to the right heel with the x-ray showing evidence of foreign body. On today's evaluation that is 04/17/2024,the patient denies any fever or any chills, patient is breathing comfortably on 3 L nasal cannula oxygen the patient denies chest pain shortness of breath and no significant cough, patient denies abdominal pain, no nausea vomiting or diarrhea. Patient is recommended for pain to the right lower extremity and 1 more pain medication still having some d rainage. Patient did have a creatinine 1.46 culture with MRSA Objective - Vital Signs Vital signs: Vital Signs Temp 98.0 F 04/17/24 04:00 Pulse 75 04/17/24 04:00 Resp 18 04/17/24 04:00 BP 131/77 04/17/24 04:00 Pulse Ox 95 04/17/24 04:00 FiO2 50 04/14/24 03:31 Intake & Output 04/16/24 04/17/24 04/17/24 18:59 06:59 18:59 Intake Total 1860 118 Output Total 400 1600 Balance 1460 -1600 118 Weight 160.3 kg Intake: Oral 1860 118 Output: Urine 400 1600 Other: Voiding Method Urinal Urinal - Exam GENERAL DESCRIPTION: Middle-age male lying in bed in no distress RESPIRATORY SYSTEM: Unlabored breathing , decreased breath sounds at bases HEART: S1 S2 regular rate and rhythm , ABDOMEN: Soft , no tenderness EXTREMITIES: Patient still has significant swelling and redness of the right lower extremity which is warm and tender to touch - Labs CBC & Chem 7: 04/11/24 06:10 04/17/24 06:19 Labs: Abnormal Lab Results - Last 24 Hours (Table) 04/16/24 04/16/24 04/16/24 Range/Units 11:53 16:42 20:05 Sodium (137-145) mmol/L Chloride (98-107) mmol/L Carbon Dioxide (22-30) mmol/L BUN (9-20) mg/dL Creatinine (0.66-1.25) mg/dL POC Glucose (mg/dL) 224 H 247 H 247 H (70-110) mg/dL Calcium (8.4-10.2) mg/dL 04/17/24 04/17/24 Range/Units 06:03 06:19 Sodium 135 L (137-145) mmol/L Chloride 94 L (98-107) mmol/L Carbon Dioxide 39 H (22-30) mmol/L BUN 63 H (9-20) mg/dL Creatinine 1.46 H (0.66-1.25) mg/dL POC Glucose (mg/dL) 141 H (70-110) mg/dL Calcium 8.2 L (8.4-10.2) mg/dL Microbiology - Last 24 Hours (Table) 04/14/24 18:15 Gram Stain - Final Foot - Right Wound Culture - Final Methicillin resist S. aureus Assessment and Plan (1) Cellulitis of right lower extremity Current Visit: Yes Status: Acute Code(s): L03.115 - CELLULITIS OF RIGHT LOWER LIMB SNOMED Code(s): 20036584194916931 (2) Leukocytosis Current Visit: Yes Status: Acute Code(s): D72.829 - ELEVATED WHITE BLOOD CELL COUNT, UNSPECIFIED SNOMED Code(s): 328922946 Plan: 1patient with diffuse swelling redness right lower extremity concerning for cellulitis likely from gram-positive skin alesia and this patient also have a painful sore to the right heel concerning for possible foreign body and may be the source of this cellulitis. 2x-rays of the right foot did shows evidence of foreign body more likely responsible for his pain patient is status post surgical removal of the foreign body as well as deep culture which are currently growing presumptive MRSA 3-patient to continue with daptomycin will likely need a short course of IV antibiotic on discharge keeping in mind extensive infection discussed with BOARD SETTER for admitting team Dictation was produced using [employer] dictation software. please excuse any grammatical, word or spelling errors. Time with Patient: Less than 30
[2024-04-17 16:17] LABS: Glucose,Whole Blood 227 mg/dL (70-110)
[2024-04-17 19:54] LABS: Glucose,Whole Blood 206 mg/dL (70-110)
--- NOTE | 2024-04-17 21:23 | PN ---
PROGRESS NOTE This gentleman had a foreign body in right heel, which we removed. There was a piece of glass in the right heel. The patient also had a callus on the right foot 2nd toe, which was excised. The patient has a venous ulcer on the anterior aspect above the ankles. There is some serous drainage. No evidence of pus. The patient is growing MRSA, under care of Infectious Disease. We placed Medihoney gel to the big toe and we placed silver on the ankle wound and a pressure dressing applied. Dressing should be changed on a daily basis. MMODL / IJN: [id number] /
[2024-04-18 06:01] LABS: Glucose,Whole Blood 114 mg/dL (70-110)
[2024-04-18 06:57] LABS: African American GFR (CKD) 65 (>60 ml/min/1.73 sqM); Anion Gap 0 mmol/L; Blood Urea Nitrogen 54 mg/dL (9-20); Carbon Dioxide 36 mmol/L (22-30); Chloride 99 mmol/L (98-107); Glucose 117 mg/dL (74-99); Non-African American GFR(CKD) 56 (>60 ml/min/1.73 sqM); Potassium 4.2 mmol/L (3.5-5.1); Sodium 135 mmol/L (137-145)
[2024-04-18 11:45] LABS: Glucose,Whole Blood 182 mg/dL (70-110)
[2024-04-18] MEDS: HYDROcodone/APAP 5-325MG 1 EACH TAB PO PRN (12:24)
--- NOTE | 2024-04-18 12:36 | P.PN ---
Subjective patient is seen for follow-up for acute kidney injury. Renal function has been stable. Maintained on oral diuretics Objective - Vital Signs Vital signs: Vital Signs Temp 96.9 F L 04/18/24 11:18 Pulse 79 04/18/24 11:18 Resp 18 04/18/24 11:18 BP 114/76 04/18/24 11:18 Pulse Ox 94 L 04/18/24 11:18 FiO2 50 04/14/24 03:31 Intake & Output 04/17/24 04/18/24 04/18/24 18:59 06:59 18:59 Intake Total 286 740 120 Balance 286 740 120 Weight 216 kg Intake: IV 20 Invasive Line 8 20 Intake, IV Titration 50 Amount DAPTOmycin 450 mg In 50 Sodium Chloride 0.9% 50 ml @ 100 mls/hr IVPB Q24HR [facility] Rx#:[id number] Oral 236 720 120 Other: Voiding Method Urinal Urinal Urinal - Exam General: nontoxic, no distress, obese Cardiovascular: reg S1-S2 Lungs: diminished breath sounds b/l Abdominal: soft, non-tender to palpataion Extremities: right foot and ankle bandaged, right lower leg is red and edematous, varicose veins and venous stasis ulcer on LE b/l, blister noted today Neuro: Alert, Oriented - Labs CBC & Chem 7: 04/11/24 06:10 04/18/24 06:09 Labs: Abnormal Lab Results - Last 24 Hours (Table) 04/17/24 04/17/24 04/18/24 Range/Units 16:16 19:52 06:00 Sodium (137-145) mmol/L Carbon Dioxide (22-30) mmol/L BUN (9-20) mg/dL Creatinine (0.66-1.25) mg/dL Glucose (74-99) mg/dL POC Glucose (mg/dL) 227 H 206 H 114 H (70-110) mg/dL Calcium (8.4-10.2) mg/dL 04/18/24 04/18/24 Range/Units 06:09 11:43 Sodium 135 L (137-145) mmol/L Carbon Dioxide 36 H (22-30) mmol/L BUN 54 H (9-20) mg/dL Creatinine 1.36 H (0.66-1.25) mg/dL Glucose 117 H (74-99) mg/dL POC Glucose (mg/dL) 182 H (70-110) mg/dL Calcium 8.0 L (8.4-10.2) mg/dL Assessment and Plan Assessment: 1. Acute kidney injury secondary to ATN secondary to cardiorenal syndrome. No hydronephrosis noted on kidney ultrasound done in December 2023. Creatinine 2.9 on admission and is 1.36 today. UA benign. 2. A-fib with RVR status post cardizem and Amiodarone drip. Now on oral amiodarone and metoprolol. 3. Chronic kidney disease stage IIIa with baseline creatinine 1.2-1.4 secondary to nephrosclerosis. 4. Volume overload. Improving with diuresis. 5. Hyperphosphatemia secondary to acute kidney injury. Phosphorus level 7.0 dated April 05, 2024 and 3.1 on 04/07/24. Resolved 6. Morbid obesity. 7. Acute hypoxic respiratory failure. Improved. 8. Acute on chronic diastolic CHF 9. Hyperkalemia, improved 10. Distal right first digit phalanx fracture and radiodense lesion on the heel of the right foot. Surgery following. A piece of glass removed from the plantar aspect of the foot yesterday. Gram stain of the right foot wound shows presumptive MRSA. Plan: Continue Torsemide 10 mg once daily IV Lasix 1 Okay to resume low-dose Aldactone Repeat labs in a.m.
[2024-04-18] MEDS: SPIRONOLACTONE 25 MG TAB PO SCH (12:45)
[2024-04-18] MEDS: FUROSEMIDE 10 MG/ML 4 ML VIAL IV STA (12:46)
--- NOTE | 2024-04-18 13:34 | P.PN ---
Subjective Progress Note Date: 04/18/24 patient is 58-year-old gentleman past medical history significant for congestive heart failure, atrial fibrillation, hypertension, hyperlipidemia, chronic kidney disease, COPD, and morbid obesity who presented the ER because of generalized debility and increasing weakness. Patient stated that he has been feeling like this for the last few weeks. Patient has been complaining of shortness of breath at rest as on exertion. Patient states that he is unable to get around. Denies any chest pain. There is no complaint of palpitations. Patient also complained of increased shakiness and tremors. Denies any fever or chills. There is no complaint of chest pain. There is no complaint orthopnea or PND. Because of the symptoms, patient presented to the ER Initial lab work done in the ER showed WBC 1.1, hemoglobin 15.6, platelet count 240, INR 1, sodium 133, potassium 5.6, chloride 96, BUN 119, creatinine 2.94 glucose 88, calcium 7.7, magnesium 2.6, bilirubin 1, troponin 0.017, proBNP 13,300 EKG done in the ER showed heart rate of 78, irregular rhythm, no ST segment elevation or depression seen, T-wave inversions seen in leads II, III and aVF. V1 to V4. Chest x-ray done in the ER showed mild bibasilar infiltrates, marked cardiomegaly CT head done showed no acute intracranial process CT cervical spine done showed no evidence of any cervical spine pathology X-ray pelvis does not show any evidence of fracture Patient admitted to internal medicine service 04/06. Patient seen and examined. Currently on BiPAP with a 50% FiO2. He is complaining of being short of breath on exertion. Denies any cough. Currently in A-fib, rate poorly controlled. Currently on Cardizem drip. 04/07. Patient seen and examined. Currently on 4 L of oxygen. Patient is diuresing well. Patient is anxious today. 04/08. Patient seen and examined. Patient underwent JESS with cardioversion today. Currently sinus rhythm. Said breathing has improved. 04/09. Patient seen and examined. Blood work done showed WBC 7.1, hemoglobin 16.7, sodium 136, potassium 3.8, BUN 102, creatinine 1.94. Continues to be t achycardic. Currently on amiodarone drip 04/10. Patient seen and examined. Patient continues to be tachycardic, currently off of IV amiodarone and switch to oral amiodarone patient is complaining of shortness of breath on exertion. 04/11 patient seen and examined. Patient complaining of palpitations. Gets short of breath on exertion. 04/12. Patient seen and examined. Complaining of lethargic. Patient heart rate is better controlled. Still gets short of breath on exertion. 04/13/2024 Patient is seen in follow-up today being followed by cardiology and pulmonary. Vascular surgery and infectious disease consulted as there is concerns of lower extremity cellulitis along with extreme right heel pain which appears to be a foreign body as noted on x-ray in the heel. Patient reports he is unsure if he stepped on something but has been causing increased pain over the last few days. Will start cefazolin and appreciate input and recommendations from infectious disease along with vascular surgery. Patient maintained on IV steroids and will continue for now along with DuoNeb treatments and diuretic therapy. 04/14/2024 Patient is seen and evaluated in follow-up and has been evaluated by vascular surgery along with concerns of possible foreign body in the right heel. Patient is unable to bear weight reporting significant 10/10 pain. Infectious disease also consulted and continued on cefazolin with concerns of bilateral lower extremity cellulitis more so on the right. Patient does have chronic peripheral vascular disease with poor circulation. Vascular surgery to reevaluate that he will and continue with local wound care 04/15/2024 Patient seen and evaluated in follow-up today and is status post deep culture and removal of a piece of glass in the right heel with vascular surgery. Cultures remain pending and patient is continued on cefazolin. Significant discoloration of the lower extremities noted and patient and nursing staff report the middle toe that was debrided continues to bleed and patient has been noncompliant and continuing to weight-bear and not keep the lower extremities elevated while at rest. Also encouraged strong reinforcement of fluid restr ictions although patient is noncompliant with this as well and has been rude with staff demanding more water. Patient is afebrile with no reports of chest pain or shortness of breath. Will await cultures and discuss further with infectious disease and vascular surgery regarding discharge planning. 04/16/2024 Patient is evaluated today resting in bed he is essentially lying flat with his right lower extremity elevated. He has significant redness and swelling to this right lower extremity. Dressing is intact he is postoperative removal of glass from the right heel as well as a deep tissue culture. Preliminary cultures are showing presumptive MRSA. He remains on IV daptomycin for this time pending further cultures. He is reporting significant pain to the right lower extremity. Receiving combination of Tylenol 3's with IV morphine. Continues on oral torsemide. Labs today reveal a sodium level of 138, potassium 5.3, BUN of 66, creatinine of 1.46. 95% on 3 L of oxygen. 04/17/2024 Patient is eval today in follow-up on the medical floor. He reports significant pain to his right foot. He is having increased drainage as well as swelling and redness of the right lower extremity. Continues on IV daptomycin with culture showing MRSA. Sodium level was 135, BUN of 63, creatinine of 1.46. He continues on 3 L of oxygen via nasal cannula. 04/18/2024 Patient is evaluated in follow-up. He does continue to report significant pain to his foot. We will take off the Tylenol 3's and start this patient on Addison 5 mg every 6 hours as needed. He has been continued on torsemide 10 mg oral daily however with the increase in swelling to his right lower extremity which is now weeping with bulla we will discuss with nephrology about starting the patient back on IV Lasix. Work today reveals a sodium level of 135, BUN of 54, creatinine of 1.36. REVIEW OF SYSTEMS: CONSTITUTIONAL: No fever, no malaise,. CARDIOVASCULAR: No chest pain, no palpitations, no syncope. PULMONARY: As mentioned above GASTROINTESTINAL: No diarrhea, no nausea, no vomiting, no abdominal pain. NEUROLOGICAL: No headaches, no weakness, reports of right foot pain and difficulty walking on it with continued bleeding of the toe PHYSICAL EXAMINATION: GENERAL: The patient is alert and oriented x3, not in any acute distress. Well developed, well nourished. Morbidly obese, elderly appearing, ill-appearing HEENT: Pupils are round and equally reacting to light. EOMI. No scleral icterus. No conjunctival pallor. Normocephalic, atraumatic. No pharyngeal erythema. No thyromegaly. CARDIOVASCULAR: S1 and S2 muffled PULMONARY: Diminished breath sound at the bases bilaterally no wheezing or crackles. ABDOMEN: Soft, obese, nontender, nondistended, normoactive bowel sounds. No palpable organomegaly. MUSCULOSKELETAL: No joint swelling or deformity. EXTREMITIES: No cyanosis, clubbing, or pedal edema. Right heel with swelling and right lower extremity redness and swelling NEUROLOGICAL: Gross neurological examination did not reveal any focal deficits. SKIN: No rashes. Significant erythema and swelling of the right lower extremity Assessment : Acute on chronic hypoxic respiratory failure secondary to CHF and COPD exacerbation Bilateral lower extremity redness and swelling with concerns of cellulitis, more so on the right Right heel pain secondary to a piece of glass lodged in the heel, status post excision of the glass and deep tissue cultures with vascular surgery. MRSA Acute kidney injury can Davin to ATN and cardiorenal syndrome Hyperkalemia, improved post Lokelma Hyponatremia Acute on chronic congestive heart failure with preserved EF, 60 to 65% Persistent atrial fibrillation, episode of RVR status post JESS with cardioversion on 04/08/2024 Hypertension Hyperlipidemia Chronic kidney disease IIIa COPD Morbid obesity: BMI 48.7 Obstructive sleep apnea, noncompliant with CPAP outpatient GI prophylaxis DVT prophylaxis Full code Plan: Patient to continue on current medications with cardiology and pulmonary following. Status post removal of glass from right heel. Cultures showing presumptive MRSA patient continues on IV daptomycin. Per nursing staff and patient in the right third toe status postdebridement continues to bleed and vascular surgery will reevaluate. Instructed nursing staff to apply pressure gauze and have instructed patient multiple times to elevate lower extremities and remain off of the area. Patient to continue with pressure offloading of the right heel. Local wound care to the right great toe with Medihoney gel and there is a right ankle wound with silver dressing applied. These should be changed on a daily basis. Continue oral prednisone taper Continue sliding scale with Accu-Cheks before meals and at bedtime and will add long-acting and adjust insulins accordingly May require SNF pending antibiotics recommendations from ID. IV versus oral. Patient is extremely noncompliant and rude to staffing with his fluid restrictions and his treatment plan. He is continued on a 1500 mL fluid restriction and is noncompliant. He is given a one-time dose of IV Lasix today and continues on oral torsemide and oral Aldactone. Due to multiple complex medical issues, overall prognosis is guarded The impression and plan of care has been dictated by Meri Galvan, Nurse Practitioner as directed. Dr. Denisse MD I have performed a history and physical examination and medical decision making of this patient, discussed the same with the dictator, and agree with the dictators assessment and plan as written, documented as a scribe. Based on total visit time, I have performed more than 50% of this visit. Objective - Vital Signs Vital signs: Vital Signs Temp 97.4 F L 04/18/24 07:51 Pulse 88 04/18/24 09:39 Resp 20 04/18/24 07:51 BP 109/70 04/18/24 07:51 Pulse Ox 98 04/18/24 07:51 FiO2 50 04/14/24 03:31 Intake & Output 04/17/24 04/18/24 04/18/24 18:59 06:59 18:59 Intake Total 286 740 120 Balance 286 740 120 Weight 216 kg Intake: IV 20 Invasive Line 8 20 Intake, IV Titration 50 Amount DAPTOmycin 450 mg In 50 Sodium Chloride 0.9% 50 ml @ 100 mls/hr IVPB Q24HR [facility] Rx#:[id number] Oral 236 720 120 Other: Voiding Method Urinal Urinal Urinal - Labs CBC & Chem 7: 04/11/24 06:10 04/18/24 06:09 Labs: Abnormal Lab Results - Last 24 Hours (Table) 04/17/24 04/17/24 04/17/24 Range/Units 11:41 16:16 19:52 Sodium (137-145) mmol/L Carbon Dioxide (22-30) mmol/L BUN (9-20) mg/dL Creatinine (0.66-1.25) mg/dL Glucose (74-99) mg/dL POC Glucose (mg/dL) 160 H 227 H 206 H (70-110) mg/dL Calcium (8.4-10.2) mg/dL 04/18/24 04/18/24 Range/Units 06:00 06:09 Sodium 135 L (137-145) mmol/L Carbon Dioxide 36 H (22-30) mmol/L BUN 54 H (9-20) mg/dL Creatinine 1.36 H (0.66-1.25) mg/dL Glucose 117 H (74-99) mg/dL POC Glucose (mg/dL) 114 H (70-110) mg/dL Calcium 8.0 L (8.4-10.2) mg/dL Assessment and Plan Time with Patient: Less than 30
--- NOTE | 2024-04-18 15:51 | P.PN ---
Subjective Progress Note Date: 04/18/24 This is a 58-year-old white male with morbid obesity, chronic diastolic conges tive heart failure, chronic obstructive pulmonary disease, chronic kidney disease, familiar to my service from previous admissions, patient presented to the ER with few days history of increased shortness of breath, weakness, generalized medical debility. No chest pain, no fever, no chills, no hemo ptysis, workup in the ER included CBC that showed WBC count of 7.1 hemoglobin 15.6, abnormal potassium of 5.6 abnormal renal profile with a BUN of 119 creatinine 2.94 and abnormal BNP level of 13,300. On his initial arrival, patient was in moderate respiratory distress he was placed on BiPAP 14/6/50%, when I saw the patient I recommended an ABG that showed a pO2 of 68 pCO2 55 pH of 7.35 and this was on BiPAP. Chest x-ray showed evidence of mild interstitial edema and the patient is now on Lasix 60 mg IV push twice daily. Patient is on bronchodilators he is also on methylprednisolone 60 mg IV push every 6 hours. Progress note dated April 06, 2024. 58-year-old male seen today in room 364. He was seen in consultation yesterday. The patient has a history of chronic diastolic CHF, and chronic obstructive pulmonary disease among other things. Currently he is on 6 L nasal cannula. No IV fluids. He has a BiPAP device in the room, with settings of 14/6, and 50%. Clinically, the patient states that he starting to feel a bit better. His chest x-ray revealed mild interstitial edema. He was placed on Lasix. He is also getting bronchodilators and corticosteroids. Current laboratory data includes a completely normal CBC. Sodium 137, potassium 4.4, chlorides 97, CO2 34, BUN 97, creatinine 1.60. Glucose is 386. Progress note dated April 07, 2024. 58-year-old male seen in room 364. Currently, the patient is not receiving any IV fluids. The patient is currently on 4 L nasal cannula. He is walking around the room. He did use both BiPAP and nasal O2 last night. He used BiPAP for about 4 hours. His settings were 14/6, and 50%. Current labs include a white count 10.6, hemoglobin 16.3, hematocrit 48.2, and a normal platelet count. Sodium 137, potassium 3.8, chlorides 98, CO2 36, BUN 96, creatinine 1.49. Glucose is 210. Progress note dated April 08, 2024. 58-year-old male who is seen today in room 364. The patient was to have a transesophageal echocardiogram, and cardioversion, by cardiology today. He remains on 4 L of oxygen by nasal cannula. According to the nurses, the patient had a relatively uneventful night. Laboratory data includes a sodium 137, potassium 3.8, chlorides 94, CO2 35, BUN 105, creatinine 1.93. Glucose is 242. Calcium 9.4. Progress note dated April 09, 2024. The patient had a transesophageal echocardiogram and cardioversion, yesterday, but unfortunately, he is back in atrial fibrillation. He is seen today in room 364. He is on amiodarone at 0.5 mg/min. He is getting nasal O2 at 3 L by nasal cannula. The patient did spend some time last night on BiPAP, with settings of 14/6, 50%. Current laboratory data includes a white count 7.9, hemoglobin 16.7, hematocrit 52.3, and a platelet count is normal. Sodium 136, potassium 3.8, chlorides 91, CO2 38, BUN 102, and creatinine 1.94. Glucose is 361. Albumin is 4. Progress note dated April 10, 2024. 58-year-old male seen again in room 364. The patient continues on oxygen, at 3 L. In addition, because of ongoing atrial fibrillation and RVR, the patient continues on amiodarone 0.5 mg/min. The patient does have some mild shortness of breath on exertion, no other complaints. He denies any chest pain. Current labs include a sodium 131, potassium 4.5, chlorides 93, CO2 29, BUN 96, and creatinine 1.81. Calcium is 8.8. Glucose is 293. Progress note dated April 11, 2024. 58-year-old male seen in room 364. The patient is sitting on the side of his bed. He is in no acute distress. The patient continues on 3 L nasal cannula. No IV fluids. Yesterday he was on amiodarone drip. That has been turned off. He does use BiPAP at nighttime, with settings of 14/6, and 50%. Current labs with a white count 17.8, hemoglobin 17.1, hematocrit 52.5, and a platelet count of 151,000. Sodium 135, potassium 4.5, chloride 94, CO2 33, BUN 94, creatinine 1.92. Glucose is 290. Progress note dated April 12, 2024. 58-year-old male who is seen today in room 364. The patient remains on O2 at 3 L. He does use BiPAP at nighttime, with settings of 14/6, and 50%. The patient continues in atrial fibrillation. His lungs are clear to auscultation on exam ination. Labs include sodium 135, potassium 4.9, chlorides 97, CO2 35, BUN 80, creatinine 1.60. Glucose is 229. Calcium is 8.8. 04/13/2024, the patient is on room air oxygen. Awake and alert and communicating. Denies having any significant respiratory difficulties. In terms of diuretics, the patient is on Demadex 10 mg p.o. daily and is also on Aldactone 12.5 mg p.o. daily. He remains on DuoNeb device treatments [id number]. He is on Symbicort as maintenance and IV Solu-Medrol 40 mg every 12 hours. The blood work shows a BUN of 76 with a creatinine of 1.4 and sodium is at 136 and a potassium level of 5.5. Serum bicarb is at 32. WBC count at 17.8 with a hemoglobin of 17 and a platelet count of 151. Most recent chest x-ray was from 04/08/2024 and it showed improved CHF. Patient denies having any other new complaints for now. 04/14/2024, the patient's overall respiratory status is stable. The x-ray of the foot was done yesterday and it showed a radiodense lesion in the heel, suggesting a foreign body. Based on that, the patient will have another evaluation with the surgical team. Meanwhile, respite status is stable. The patient is currently on 3 L of oxygen by nasal cannula with a pulse ox of 98%. The patient remains on DuoNeb updrafts. The patient is on Symbicort. The patient is also on a combination of Aldactone and Demadex. He remains on IV Solu-Medrol 40 mg every 12 hours. Blood work shows a BUN of 69 with a creatinine of 1.4 and a sodium level is 137 and a potassium level is 5.6 and a serum bicarb is at 36. The most recent CBC showed a WBC of 17.9 and a hemoglobin of 17.1. The patient remains on IV cefazolin. The patient remains on Levemir insulin 15 units twice daily plus a sliding scale coverage. Denies having any significant complaints otherwise. Ultrasound Doppler of the lower extremity was negative for DVT. On today's evaluation of 04/15/2024, the patient is calm and comfortable without having any major respiratory difficulties. The patient has no respiratory distress. Patient is currently on 3 L of oxygen by nasal cannula with pulse ox of 96%. No cough or sputum production or chest tightness or wheezing. Limited edema lower extremities bilaterally more so on the right. The patient had another surgical evaluation and a piece of glass was removed from his right heel by the surgical team. Cultures from the right lower extremity are still pending and the patient remains on IV cefazolin. Continues to have discoloration of the right lower extremity and the patient is post surgical debridement. Otherwise, rest of the medication remains unchanged. BUN 16 with a creatinine of 1.5 and a creatinine remained stable. Sodium is at 136, potassium is at 4.8, chloride 96 with a bicarb of 39. 04/16/2024, the patient is working with physical therapy. No new complaints. The wound cultures showed MRSA and the patient was started on daptomycin. IV cefazolin has been discontinued. BUN 66 with a creatinine 1.4 and sodium levels at 138 and a potassium level is at 5.3. He is afebrile hemodynamically stable. He remains on 2 L of oxygen by nasal cannula with a pulse ox of 95%. The patient remains on anticoagulation with Eliquis. The patient remains on Demadex 10 mg p.o. daily. Rest of the medication remain unchanged. On a prednisone burst taper starting with 30 mg as part of his best burst taper. 04/17/2024, the patient is being seen for a follow-up. Complaining of generalized bodyaches. No respiratory difficulties. Remains on 3 Suboxone by nasal cannula. Remains on the same diuretic dose and the patient is on Demadex 10 mg p.o. daily. Remains on the same antibiotic coverage which includes IV daptomycin. Sodium levels at 135, BUN 63 with a creatinine of 1.4 and a potassium level is at 4.7. Wound culture was positive for MRSA. No altered mentation. Mobility is limited and the patient is working with physical therapy. 04/18/2024, no interval change in the patient's overall respiratory status. No new complaints for now. Labs were noted. BUN is at 54 with a creatinine 1.3 and sodium levels at 135. The patient remains on daptomycin. Remains on a combination of Aldactone and torsemide. No new complaints otherwise for now. Objective - Vital Signs Vital signs: Vital Signs Temp 97.4 F L 04/18/24 07:51 Pulse 88 04/18/24 09:39 Resp 20 04/18/24 07:51 BP 109/70 04/18/24 07:51 Pulse Ox 98 04/18/24 07:51 FiO2 50 04/14/24 03:31 Intake & Output 04/17/24 04/18/24 04/18/24 18:59 06:59 18:59 Intake Total 286 740 120 Balance 286 740 120 Weight 216 kg Intake: IV 20 Invasive Line 8 20 Intake, IV Titration 50 Amount DAPTOmycin 450 mg In 50 Sodium Chloride 0.9% 50 ml @ 100 mls/hr IVPB Q24HR [facility] Rx#:[id number] Oral 236 720 120 Other: Voiding Method Urinal Urinal Urinal - Exam No acute distress, oriented 3. No audible wheezing or use of accessory muscles. Currently on room air oxygen HEENT examination is grossly unremarkable. Mucous membranes are moist. No oral lesions. Neck supple. Full range of motion. No adenopathy thyromegaly or neck vein distention. Cardiovascular examination reveals an irregular rhythm and rate. S1-S2 normal. No S3 or S4. No discernible murmur noted. Lungs reveal diminished bilateral breath sounds. Minimal crackles and rhonchi noted. Abdomen soft bowel sounds are heard. No masses or tenderness. Extremities reveal 3+ bilateral lower extremity pitting edema. Skin reveals multiple superficial venous stasis ulcers. Neurologic examination is brief but nonfocal. - Labs CBC & Chem 7: 04/11/24 06:10 04/18/24 06:09 Labs: Abnormal Lab Results - Last 24 Hours (Table) 04/17/24 04/17/24 04/17/24 Range/Units 11:41 16:16 19:52 Sodium (137-145) mmol/L Carbon Dioxide (22-30) mmol/L BUN (9-20) mg/dL Creatinine (0.66-1.25) mg/dL Glucose (74-99) mg/dL POC Glucose (mg/dL) 160 H 227 H 206 H (70-110) mg/dL Calcium (8.4-10.2) mg/dL 04/18/24 04/18/24 Range/Units 06:00 06:09 Sodium 135 L (137-145) mmol/L Carbon Dioxide 36 H (22-30) mmol/L BUN 54 H (9-20) mg/dL Creatinine 1.36 H (0.66-1.25) mg/dL Glucose 117 H (74-99) mg/dL POC Glucose (mg/dL) 114 H (70-110) mg/dL Calcium 8.0 L (8.4-10.2) mg/dL Assessment and Plan Plan: Acute on chronic hypoxemic and hypercapnic respiratory failure, secondary to diastolic CHF exacerbation,currently on a combination of Demadex and Aldactone, currently on 3 L of oxygen by nasal cannula with adequate oxygenation Atrial fibrillation with rapid ventricular response, S/P JESS/cardioversion, April 08, 2024. The patient remains on anticoagulation with Eliquis. The patient is also on amiodarone 400 mg p.o. twice a day and metoprolol 150 mg p.o. twice a day Very severe COPD, with an FEV1 that is 22% of predicted. Obstructive sleep apnea syndrome, patient noncompliant with noninvasive positive airway pressure device. Morbid obesity with a BMI of 48.7 kg/m. Acute on chronic kidney disease. Hyperkalemia. Chronic lower extremity edema, with multiple venous stasis ulcers. History of hypertension. History of dyslipidemia. Former tobacco dependence. callus right foot second toe also there is pain at pain on the right heel status post removal of a foreign body, a piece of glass with ongoing surgical debridement. The wound cultures positive for MRSA. Cellulitis of the right lower extremity, Plan Clinically stable and overall pulmonary status is also stable. Oxygen requirements are unchanged. Foreign body was removed from the right heel Continue IV daptomycin Continue the combination of amiodarone 400 mg twice a day metoprolol 100 mg twice a day and anticoagulation with Eliquis Continue Demadex 10 mg p.o. daily and Aldactone 12.5 mg p.o. daily Surgery to reevaluate the right foot, may need also an orthopedic evaluation regarding the possibility of a fracture. Incentive spirometer Renal function stable Volume status has been improved prednisone burst taper starting with 30 mg Working with physical therapy Will continue to follow
[2024-04-18 16:20] LABS: Glucose,Whole Blood 186 mg/dL (70-110)
[2024-04-18 20:13] LABS: Glucose,Whole Blood 261 mg/dL (70-110)
[2024-04-19 06:58] LABS: Glucose,Whole Blood 134 mg/dL (70-110)
[2024-04-19 07:59] LABS: Basophils % (A) 0 %; Eosinophils # (A) 0.1 k/uL (0-0.7); Eosinophils % (A) 1 %; HCT 50.5 % (39.0-53.0); HGB 15.2 gm/dL (13.0-17.5); Hypochromasia Marked; Lymphocytes # (A) 0.7 k/uL (1.0-4.8); Lymphocytes % (A) 6 %; MCH 28.5 pg (25.0-35.0); Mean Platelet Volume 8.2; Monocytes # (A) 0.4 k/uL (0-1.0); Monocytes % (A) 4 %; Neutrophils % (A) 89 %; RBC 5.32 m/uL (4.30-5.90); RDW 14.9 % (11.5-15.5); WBC 11.3 k/uL (3.8-10.6)
[2024-04-19 08:38] LABS: MCV 94.8 fL (80.0-100.0)
[2024-04-19 08:45] LABS: African American GFR (CKD) 65 (>60 ml/min/1.73 sqM); Anion Gap 3 mmol/L; Blood Urea Nitrogen 56 mg/dL (9-20); Calcium 7.9 mg/dL (8.4-10.2); Carbon Dioxide 33 mmol/L (22-30); Chloride 100 mmol/L (98-107); Glucose 96 mg/dL (74-99); Non-African American GFR(CKD) 56 (>60 ml/min/1.73 sqM); Sodium 136 mmol/L (137-145)
[2024-04-19 08:49] LABS: Potassium 4.6 mmol/L (3.5-5.1)
[2024-04-19 08:50] LABS: Magnesium 2.2 mg/dL (1.6-2.3)
[2024-04-19 09:10] LABS: Platelet Count 94 k/uL (150-450)
--- NOTE | 2024-04-19 11:40 | P.PN ---
Subjective patient is seen for follow-up for acute kidney injury. Renal function has been stable. Maintained on oral diuretics and IV antibiotics for right lower extremity cellulitis. Objective - Vital Signs Vital signs: Vital Signs Temp 98.2 F 04/19/24 11:00 Pulse 87 04/19/24 11:00 Resp 20 04/19/24 11:00 BP 115/77 04/19/24 11:00 Pulse Ox 95 04/19/24 11:00 FiO2 50 04/19/24 04:00 Intake & Output 04/18/24 04/19/24 04/19/24 18:59 06:59 18:59 Intake Total 360 320 540 Output Total 1900 600 600 Balance -1540 -280 -60 Weight 158 kg Intake: IV 20 Invasive Line 8 20 Oral 360 300 540 Output: Urine 1900 600 600 Other: Voiding Method Urinal Urinal Urinal - Exam General: nontoxic, no distress, appears at stated age, obese Derm: warm, dry Cardiovascular: reg S1-S2 Lungs: diminished breath sounds b/l no accessory muscle use Abdominal: soft, non-tender to palpataion Extremities: right foot and ankle bandaged, right lower leg is red and edematous, varicose veins and venous stasis ulcer on LE b/l Neuro: Alert, Oriented - Labs CBC & Chem 7: 04/19/24 07:36 04/19/24 06:49 Labs: Abnormal Lab Results - Last 24 Hours (Table) 04/18/24 04/18/24 04/18/24 Range/Units 11:43 16:18 20:11 WBC (3.8-10.6) k/uL MCHC (31.0-37.0) g/dL Plt Count (150-450) k/uL Neutrophils # (1.3-7.7) k/uL Lymphocytes # (1.0-4.8) k/uL Sodium (137-145) mmol/L Carbon Dioxide (22-30) mmol/L BUN (9-20) mg/dL Creatinine (0.66-1.25) mg/dL POC Glucose (mg/dL) 182 H 186 H 261 H (70-110) mg/dL Calcium (8.4-10.2) mg/dL 04/19/24 04/19/24 04/19/24 Range/Units 06:49 06:55 07:36 WBC 11.3 H (3.8-10.6) k/uL MCHC 30.0 L (31.0-37.0) g/dL Plt Count 94 L (150-450) k/uL Neutrophils # 10.0 H (1.3-7.7) k/uL Lymphocytes # 0.7 L (1.0-4.8) k/uL Sodium 136 L (137-145) mmol/L Carbon Dioxide 33 H (22-30) mmol/L BUN 56 H (9-20) mg/dL Creatinine 1.35 H (0.66-1.25) mg/dL POC Glucose (mg/dL) 134 H (70-110) mg/dL Calcium 7.9 L (8.4-10.2) mg/dL Assessment and Plan Assessment: 1. Acute kidney injury secondary to ATN secondary to cardiorenal syndrome. No hydronephrosis noted on kidney ultrasound done in December 2023. Creatinine 2.9 on admission and is 1.35 today. UA benign. 2. A-fib with RVR status post cardizem and Amiodarone drip. Now on oral amiodarone and metoprolol. 3. Chronic kidney disease stage IIIa with baseline creatinine 1.2-1.4 secondary to nephrosclerosis. 4. Volume overload. Improving with diuresis. 5. Hyperphosphatemia secondary to acute kidney injury. Phosphorus level 7.0 dated April 05, 2024 and 3.1 on 04/07/24. Resolved 6. Morbid obesity. 7. Acute hypoxic respiratory failure. Improved. 8. Acute on chronic diastolic CHF 9. Hyperkalemia. Patient was maintained on Aldactone and potassium supplementation. Potassium discontinued. Hyperglycemia contributing to the hyperkalemia as well. Regular insulin IV 10U administered 04/14/24. Aldactone discontinued. 10. Distal right first digit phalanx fracture and radiodense lesion on the heel of the right foot. Surgery following. A piece of glass removed from the plantar aspect of the foot. Gram stain of the right foot wound shows MRSA. Patient maintained on daptomycin. Plan: Continue Torsemide 10 mg once daily Repeat labs in a.m. Low-salt diet and 1500 cc fluid restriction. Continue to monitor renal function and urine output. Avoid nephrotoxic agents.
[2024-04-19] MEDS: HYDROmorphone 0.5 MG/0.5 ML SYRINGE IVP STA (11:44)
[2024-04-19 11:46] LABS: Glucose,Whole Blood 243 mg/dL (70-110)
--- NOTE | 2024-04-19 12:39 | P.PN ---
Subjective Progress Note Date: 04/19/24 This is a 58-year-old white male with morbid obesity, chronic diastolic conges tive heart failure, chronic obstructive pulmonary disease, chronic kidney disease, familiar to my service from previous admissions, patient presented to the ER with few days history of increased shortness of breath, weakness, generalized medical debility. No chest pain, no fever, no chills, no hemo ptysis, workup in the ER included CBC that showed WBC count of 7.1 hemoglobin 15.6, abnormal potassium of 5.6 abnormal renal profile with a BUN of 119 creatinine 2.94 and abnormal BNP level of 13,300. On his initial arrival, patient was in moderate respiratory distress he was placed on BiPAP 14/6/50%, when I saw the patient I recommended an ABG that showed a pO2 of 68 pCO2 55 pH of 7.35 and this was on BiPAP. Chest x-ray showed evidence of mild interstitial edema and the patient is now on Lasix 60 mg IV push twice daily. Patient is on bronchodilators he is also on methylprednisolone 60 mg IV push every 6 hours. Progress note dated April 06, 2024. 58-year-old male seen today in room 364. He was seen in consultation yesterday. The patient has a history of chronic diastolic CHF, and chronic obstructive pulmonary disease among other things. Currently he is on 6 L nasal cannula. No IV fluids. He has a BiPAP device in the room, with settings of 14/6, and 50%. Clinically, the patient states that he starting to feel a bit better. His chest x-ray revealed mild interstitial edema. He was placed on Lasix. He is also getting bronchodilators and corticosteroids. Current laboratory data includes a completely normal CBC. Sodium 137, potassium 4.4, chlorides 97, CO2 34, BUN 97, creatinine 1.60. Glucose is 386. Progress note dated April 07, 2024. 58-year-old male seen in room 364. Currently, the patient is not receiving any IV fluids. The patient is currently on 4 L nasal cannula. He is walking around the room. He did use both BiPAP and nasal O2 last night. He used BiPAP for about 4 hours. His settings were 14/6, and 50%. Current labs include a white count 10.6, hemoglobin 16.3, hematocrit 48.2, and a normal platelet count. Sodium 137, potassium 3.8, chlorides 98, CO2 36, BUN 96, creatinine 1.49. Glucose is 210. Progress note dated April 08, 2024. 58-year-old male who is seen today in room 364. The patient was to have a transesophageal echocardiogram, and cardioversion, by cardiology today. He remains on 4 L of oxygen by nasal cannula. According to the nurses, the patient had a relatively uneventful night. Laboratory data includes a sodium 137, potassium 3.8, chlorides 94, CO2 35, BUN 105, creatinine 1.93. Glucose is 242. Calcium 9.4. Progress note dated April 09, 2024. The patient had a transesophageal echocardiogram and cardioversion, yesterday, but unfortunately, he is back in atrial fibrillation. He is seen today in room 364. He is on amiodarone at 0.5 mg/min. He is getting nasal O2 at 3 L by nasal cannula. The patient did spend some time last night on BiPAP, with settings of 14/6, 50%. Current laboratory data includes a white count 7.9, hemoglobin 16.7, hematocrit 52.3, and a platelet count is normal. Sodium 136, potassium 3.8, chlorides 91, CO2 38, BUN 102, and creatinine 1.94. Glucose is 361. Albumin is 4. Progress note dated April 10, 2024. 58-year-old male seen again in room 364. The patient continues on oxygen, at 3 L. In addition, because of ongoing atrial fibrillation and RVR, the patient continues on amiodarone 0.5 mg/min. The patient does have some mild shortness of breath on exertion, no other complaints. He denies any chest pain. Current labs include a sodium 131, potassium 4.5, chlorides 93, CO2 29, BUN 96, and creatinine 1.81. Calcium is 8.8. Glucose is 293. Progress note dated April 11, 2024. 58-year-old male seen in room 364. The patient is sitting on the side of his bed. He is in no acute distress. The patient continues on 3 L nasal cannula. No IV fluids. Yesterday he was on amiodarone drip. That has been turned off. He does use BiPAP at nighttime, with settings of 14/6, and 50%. Current labs with a white count 17.8, hemoglobin 17.1, hematocrit 52.5, and a platelet count of 151,000. Sodium 135, potassium 4.5, chloride 94, CO2 33, BUN 94, creatinine 1.92. Glucose is 290. Progress note dated April 12, 2024. 58-year-old male who is seen today in room 364. The patient remains on O2 at 3 L. He does use BiPAP at nighttime, with settings of 14/6, and 50%. The patient continues in atrial fibrillation. His lungs are clear to auscultation on exam ination. Labs include sodium 135, potassium 4.9, chlorides 97, CO2 35, BUN 80, creatinine 1.60. Glucose is 229. Calcium is 8.8. 04/13/2024, the patient is on room air oxygen. Awake and alert and communicating. Denies having any significant respiratory difficulties. In terms of diuretics, the patient is on Demadex 10 mg p.o. daily and is also on Aldactone 12.5 mg p.o. daily. He remains on DuoNeb device treatments [id number]. He is on Symbicort as maintenance and IV Solu-Medrol 40 mg every 12 hours. The blood work shows a BUN of 76 with a creatinine of 1.4 and sodium is at 136 and a potassium level of 5.5. Serum bicarb is at 32. WBC count at 17.8 with a hemoglobin of 17 and a platelet count of 151. Most recent chest x-ray was from 04/08/2024 and it showed improved CHF. Patient denies having any other new complaints for now. 04/14/2024, the patient's overall respiratory status is stable. The x-ray of the foot was done yesterday and it showed a radiodense lesion in the heel, suggesting a foreign body. Based on that, the patient will have another evaluation with the surgical team. Meanwhile, respite status is stable. The patient is currently on 3 L of oxygen by nasal cannula with a pulse ox of 98%. The patient remains on DuoNeb updrafts. The patient is on Symbicort. The patient is also on a combination of Aldactone and Demadex. He remains on IV Solu-Medrol 40 mg every 12 hours. Blood work shows a BUN of 69 with a creatinine of 1.4 and a sodium level is 137 and a potassium level is 5.6 and a serum bicarb is at 36. The most recent CBC showed a WBC of 17.9 and a hemoglobin of 17.1. The patient remains on IV cefazolin. The patient remains on Levemir insulin 15 units twice daily plus a sliding scale coverage. Denies having any significant complaints otherwise. Ultrasound Doppler of the lower extremity was negative for DVT. On today's evaluation of 04/15/2024, the patient is calm and comfortable without having any major respiratory difficulties. The patient has no respiratory distress. Patient is currently on 3 L of oxygen by nasal cannula with pulse ox of 96%. No cough or sputum production or chest tightness or wheezing. Limited edema lower extremities bilaterally more so on the right. The patient had another surgical evaluation and a piece of glass was removed from his right heel by the surgical team. Cultures from the right lower extremity are still pending and the patient remains on IV cefazolin. Continues to have discoloration of the right lower extremity and the patient is post surgical debridement. Otherwise, rest of the medication remains unchanged. BUN 16 with a creatinine of 1.5 and a creatinine remained stable. Sodium is at 136, potassium is at 4.8, chloride 96 with a bicarb of 39. 04/16/2024, the patient is working with physical therapy. No new complaints. The wound cultures showed MRSA and the patient was started on daptomycin. IV cefazolin has been discontinued. BUN 66 with a creatinine 1.4 and sodium levels at 138 and a potassium level is at 5.3. He is afebrile hemodynamically stable. He remains on 2 L of oxygen by nasal cannula with a pulse ox of 95%. The patient remains on anticoagulation with Eliquis. The patient remains on Demadex 10 mg p.o. daily. Rest of the medication remain unchanged. On a prednisone burst taper starting with 30 mg as part of his best burst taper. 04/17/2024, the patient is being seen for a follow-up. Complaining of generalized bodyaches. No respiratory difficulties. Remains on 3 Suboxone by nasal cannula. Remains on the same diuretic dose and the patient is on Demadex 10 mg p.o. daily. Remains on the same antibiotic coverage which includes IV daptomycin. Sodium levels at 135, BUN 63 with a creatinine of 1.4 and a potassium level is at 4.7. Wound culture was positive for MRSA. No altered mentation. Mobility is limited and the patient is working with physical therapy. 04/18/2024, no interval change in the patient's overall respiratory status. No new complaints for now. Labs were noted. BUN is at 54 with a creatinine 1.3 and sodium levels at 135. The patient remains on daptomycin. Remains on a combination of Aldactone and torsemide. No new complaints otherwise for now. 04/19/2024, no new complaints. The patient continues to have cellulitis and blistering in his right lower extremity along with MRSA wounds. Remains on daptomycin. No respiratory difficulties for now. Oxygen requirements remain unchanged 3 L/min nasal cannula. Nephrology is also on the case. ID is on the case. Await second 11 labile of 15.20 platelet count of 94. BUN is 56 with a creatinine 1.35. Objective - Vital Signs Vital signs: Vital Signs Temp 97.9 F 04/19/24 07:39 Pulse 82 04/19/24 08:24 Resp 20 04/19/24 07:39 BP 118/61 04/19/24 07:39 Pulse Ox 93 L 04/19/24 07:39 FiO2 50 04/19/24 04:00 Intake & Output 04/18/24 04/19/24 04/19/24 18:59 06:59 18:59 Intake Total 360 320 Output Total 1900 600 600 Balance -1540 -280 -600 Weight 158 kg Intake: IV 20 Invasive Line 8 20 Oral 360 300 Output: Urine 1900 600 600 Other: Voiding Method Urinal Urinal Urinal - Exam No acute distress, oriented 3. No audible wheezing or use of accessory muscles. Currently on room air oxygen HEENT examination is grossly unremarkable. Mucous membranes are moist. No oral lesions. Neck supple. Full range of motion. No adenopathy thyromegaly or neck vein distention. Cardiovascular examination reveals an irregular rhythm and rate. S1-S2 normal. No S3 or S4. No discernible murmur noted. Lungs reveal diminished bilateral breath sounds. Minimal crackles and rhonchi noted. Abdomen soft bowel sounds are heard. No masses or tenderness. Extremities reveal 3+ bilateral lower extremity pitting edema. Skin reveals multiple superficial venous stasis ulcers. Neurologic examination is brief but nonfocal. - Labs CBC & Chem 7: 04/19/24 07:36 04/19/24 06:49 Labs: Abnormal Lab Results - Last 24 Hours (Table) 04/18/24 04/18/24 04/18/24 Range/Units 11:43 16:18 20:11 WBC (3.8-10.6) k/uL MCHC (31.0-37.0) g/dL Plt Count (150-450) k/uL Neutrophils # (1.3-7.7) k/uL Lymphocytes # (1.0-4.8) k/uL Sodium (137-145) mmol/L Carbon Dioxide (22-30) mmol/L BUN (9-20) mg/dL Creatinine (0.66-1.25) mg/dL POC Glucose (mg/dL) 182 H 186 H 261 H (70-110) mg/dL Calcium (8.4-10.2) mg/dL 04/19/24 04/19/24 04/19/24 Range/Units 06:49 06:55 07:36 WBC 11.3 H (3.8-10.6) k/uL MCHC 30.0 L (31.0-37.0) g/dL Plt Count 94 L (150-450) k/uL Neutrophils # 10.0 H (1.3-7.7) k/uL Lymphocytes # 0.7 L (1.0-4.8) k/uL Sodium 136 L (137-145) mmol/L Carbon Dioxide 33 H (22-30) mmol/L BUN 56 H (9-20) mg/dL Creatinine 1.35 H (0.66-1.25) mg/dL POC Glucose (mg/dL) 134 H (70-110) mg/dL Calcium 7.9 L (8.4-10.2) mg/dL Assessment and Plan Plan: Acute on chronic hypoxemic and hypercapnic respiratory failure, secondary to diastolic CHF exacerbation,currently on a combination of Demadex and Aldactone, currently on 3 L of oxygen by nasal cannula with adequate oxygenation Atrial fibrillation with rapid ventricular response, S/P JESS/cardioversion, April 08, 2024. The patient remains on anticoagulation with Eliquis. The patient is also on amiodarone 400 mg p.o. twice a day and metoprolol 150 mg p.o. twice a day Very severe COPD, with an FEV1 that is 22% of predicted. Obstructive sleep apnea syndrome, patient noncompliant with noninvasive positive airway pressure device. Morbid obesity with a BMI of 48.7 kg/m. Acute on chronic kidney disease. Hyperkalemia. Chronic lower extremity edema, with multiple venous stasis ulcers. History of hypertension. History of dyslipidemia. Former tobacco dependence. callus right foot second toe also there is pain at pain on the right heel status post removal of a foreign body, a piece of glass with ongoing surgical debrid ement. The wound cultures positive for MRSA. Cellulitis of the right lower extremity, Plan Clinically stable and overall pulmonary status is also stable. Oxygen requirements are unchanged. The patient remains at liters of oxygen by nasal cannula Foreign body was removed from the right heel, nevertheless he continues to have cellulitis and skin blistering Continue IV daptomycin Continue the combination of amiodarone 400 mg twice a day metoprolol 100 mg twice a day and anticoagulation with Eliquis Continue Demadex 10 mg p.o. daily and Aldactone 12.5 mg p.o. daily Surgery to reevaluate the right foot, may need also an orthopedic evaluation regarding the possibility of a fracture. Incentive spirometer Renal function stable Volume status has been improved prednisone burst taper starting with 30 mg Working with physical therapy Pulmonary will sign off the case
--- NOTE | 2024-04-19 13:12 | P.PN ---
Subjective Progress Note Date: 04/18/24 Principal diagnosis: Reason for follow-up is a right lower extremity cellulitis and right foot foreign body Patient is a 58-year-old male with a past medical history significant for atrial fibrillation asthma heart failure COPD hypertension hyperlipidemia sleep apnea presented to hospital for evaluation of increasing shortness of breath patient also developed increasing redness to the right leg with pain to the right heel with the x-ray showing evidence of foreign body. On today's evaluation that is 04/18/2024,the patient remains to be afebrile, patient is on 3 L nasal cannula supplemental oxygen and denies any worsening shortness of breath no chest pain or cough.Patient denies having any nausea or vomiting, no abdominal pain and no diarrhea has been reported, still complaining of swelling and drainage to the right lower extremity and has developed a large blister. No CBC was done today creatinine is 1.36 Objective - Vital Signs Vital signs: Vital Signs Temp 97.7 F 04/18/24 15:30 Pulse 84 04/18/24 20:56 Resp 18 04/18/24 15:30 BP 125/86 04/18/24 15:30 Pulse Ox 97 04/18/24 15:30 FiO2 50 04/14/24 03:31 Intake & Output 04/18/24 04/18/24 04/19/24 06:59 18:59 06:59 Intake Total 740 360 Output Total 1900 Balance 740 -1540 Weight 216 kg Intake: IV 20 Invasive Line 8 20 Oral 720 360 Output: Urine 1900 Other: Voiding Method Urinal Urinal - Exam GENERAL DESCRIPTION: Middle-age male lying in bed in no distress RESPIRATORY SYSTEM: Unlabored breathing , decreased breath sounds at bases HEART: S1 S2 regular rate and rhythm , ABDOMEN: Soft , no tenderness EXTREMITIES: Patient right lower extremity did have a large blister with some drainage redness slightly decreased - Labs CBC & Chem 7: 04/19/24 07:36 04/19/24 06:49 Labs: Abnormal Lab Results - Last 24 Hours (Table) 04/18/24 04/18/24 04/18/24 Range/Units 06:00 06:09 11:43 Sodium 135 L (137-145) mmol/L Carbon Dioxide 36 H (22-30) mmol/L BUN 54 H (9-20) mg/dL Creatinine 1.36 H (0.66-1.25) mg/dL Glucose 117 H (74-99) mg/dL POC Glucose (mg/dL) 114 H 182 H (70-110) mg/dL Calcium 8.0 L (8.4-10.2) mg/dL 04/18/24 04/18/24 Range/Units 16:18 20:11 Sodium (137-145) mmol/L Carbon Dioxide (22-30) mmol/L BUN (9-20) mg/dL Creatinine (0.66-1.25) mg/dL Glucose (74-99) mg/dL POC Glucose (mg/dL) 186 H 261 H (70-110) mg/dL Calcium (8.4-10.2) mg/dL Assessment and Plan (1) Cellulitis of right lower extremity Current Visit: Yes Status: Acute Code(s): L03.115 - CELLULITIS OF RIGHT LOWER LIMB SNOMED Code(s): 75564416265580339 (2) Leukocytosis Current Visit: Yes Status: Acute Code(s): D72.829 - ELEVATED WHITE BLOOD CELL COUNT, UNSPECIFIED SNOMED Code(s): 686994571 Plan: 1patient with diffuse swelling redness right lower extremity concerning for cellulitis likely from gram-positive skin alesia and this patient also have a painful sore to the right heel concerning for possible foreign body and may be the source of this cellulitis. 2x-rays of the right foot did shows evidence of foreign body more likely responsible for his pain patient is status post surgical removal of the foreign body as well as deep culture which are currently growing presumptive MRSA 3-patient is afebrile no CBC has been done today we will check a CBC with a.m. lab, to continue with daptomycin and monitor clinical course closely Dictation was produced using [employer] dictation software. please excuse any grammatical, word or spelling errors. Time with Patient: Less than 30
--- NOTE | 2024-04-19 13:13 | P.PN ---
Subjective Progress Note Date: 04/19/24 Principal diagnosis: Reason for follow-up is a right lower extremity cellulitis and right foot foreign body Patient is a 58-year-old male with a past medical history significant for atrial fibrillation asthma heart failure COPD hypertension hyperlipidemia sleep apnea presented to hospital for evaluation of increasing shortness of breath patient also developed increasing redness to the right leg with pain to the right heel with the x-ray showing evidence of foreign body. On today's evaluation that is 04/19/2024, the patient continues to be afebrile, the patient is on 3 L current oxygen and breathing comfortably, the Pt denies having any chest pain or cough, the patient denies having any abdominal pain no vomiting or any diarrhea has been reported by the nursing staff, still complaining of swelling and drainage to the right lower extremity but no worsening. Patient white count is 11.3, creat is 1.35 Objective - Vital Signs Vital signs: Vital Signs Temp 98.2 F 04/19/24 11:00 Pulse 87 04/19/24 13:05 Resp 20 04/19/24 11:00 BP 115/77 04/19/24 11:00 Pulse Ox 95 04/19/24 11:00 FiO2 50 04/19/24 04:00 Intake & Output 04/18/24 04/19/24 04/19/24 18:59 06:59 18:59 Intake Total 360 320 540 Output Total 1900 600 600 Balance -1540 -280 -60 Weight 158 kg Intake: IV 20 Invasive Line 8 20 Oral 360 300 540 Output: Urine 1900 600 600 Other: Voiding Method Urinal Urinal Urinal - Exam GENERAL DESCRIPTION: Middle-age male lying in bed in no distress RESPIRATORY SYSTEM: Unlabored breathing , decreased breath sounds at bases HEART: S1 S2 regular rate and rhythm , ABDOMEN: Soft , no tenderness EXTREMITIES: Right leg is currently dressed with minimal drainage on the dressing - Labs CBC & Chem 7: 04/19/24 07:36 04/19/24 06:49 Labs: Abnormal Lab Results - Last 24 Hours (Table) 04/18/24 04/18/24 04/19/24 Range/Units 16:18 20:11 06:49 WBC (3.8-10.6) k/uL MCHC (31.0-37.0) g/dL Plt Count (150-450) k/uL Neutrophils # (1.3-7.7) k/uL Lymphocytes # (1.0-4.8) k/uL Sodium 136 L (137-145) mmol/L Carbon Dioxide 33 H (22-30) mmol/L BUN 56 H (9-20) mg/dL Creatinine 1.35 H (0.66-1.25) mg/dL POC Glucose (mg/dL) 186 H 261 H (70-110) mg/dL Calcium 7.9 L (8.4-10.2) mg/dL 04/19/24 04/19/24 04/19/24 Range/Units 06:55 07:36 11:45 WBC 11.3 H (3.8-10.6) k/uL MCHC 30.0 L (31.0-37.0) g/dL Plt Count 94 L (150-450) k/uL Neutrophils # 10.0 H (1.3-7.7) k/uL Lymphocytes # 0.7 L (1.0-4.8) k/uL Sodium (137-145) mmol/L Carbon Dioxide (22-30) mmol/L BUN (9-20) mg/dL Creatinine (0.66-1.25) mg/dL POC Glucose (mg/dL) 134 H 243 H (70-110) mg/dL Calcium (8.4-10.2) mg/dL Assessment and Plan (1) Cellulitis of right lower extremity Current Visit: Yes Status: Acute Code(s): L03.115 - CELLULITIS OF RIGHT LOWER LIMB SNOMED Code(s): 51197941901925304 (2) Leukocytosis Current Visit: Yes Status: Acute Code(s): D72.829 - ELEVATED WHITE BLOOD CELL COUNT, UNSPECIFIED SNOMED Code(s): 277410444 Plan: 1patient with diffuse swelling redness right lower extremity concerning for cellulitis likely from gram-positive skin alesia and this patient also have a painful sore to the right heel concerning for possible foreign body and may be the source of this cellulitis. 2x-rays of the right foot did shows evidence of foreign body more likely responsible for his pain patient is status post surgical removal of the foreign body as well as deep culture which are currently growing presumptive MRSA 3-patient is afebrile white count of 11.3, local culture positive for MRSA, 4-patient to to continue with daptomycin and will consider short course of IV antibiotics on discharge Dictation was produced using [employer] dictation software. please excuse any grammatical, word or spelling errors. Time with Patient: Less than 30
[2024-04-19] MEDS: HYDROcodone/APAP 7.5-325MG 1 EACH TAB PO PRN (13:50)
[2024-04-19] MEDS: HYDROmorphone 0.5 MG/0.5 ML SYRINGE IVP PRN (16:16)
[2024-04-19 16:43] LABS: Glucose,Whole Blood 189 mg/dL (70-110)
[2024-04-19 20:02] LABS: Glucose,Whole Blood 255 mg/dL (70-110)
--- NOTE | 2024-04-20 05:02 | P.PN ---
Subjective Progress Note Date: 04/19/24 patient is 58-year-old gentleman past medical history significant for congestive heart failure, atrial fibrillation, hypertension, hyperlipidemia, chronic kidney disease, COPD, and morbid obesity who presented the ER because of generalized debility and increasing weakness. Patient stated that he has been feeling like this for the last few weeks. Patient has been complaining of shortness of breath at rest as on exertion. Patient states that he is unable to get around. Denies any chest pain. There is no complaint of palpitations. Patient also complained of increased shakiness and tremors. Denies any fever or chills. There is no complaint of chest pain. There is no complaint orthopnea or PND. Because of the symptoms, patient presented to the ER Initial lab work done in the ER showed WBC 1.1, hemoglobin 15.6, platelet count 240, INR 1, sodium 133, potassium 5.6, chloride 96, BUN 119, creatinine 2.94 glucose 88, calcium 7.7, magnesium 2.6, bilirubin 1, troponin 0.017, proBNP 13,300 EKG done in the ER showed heart rate of 78, irregular rhythm, no ST segment elevation or depression seen, T-wave inversions seen in leads II, III and aVF. V1 to V4. Chest x-ray done in the ER showed mild bibasilar infiltrates, marked cardiomegaly CT head done showed no acute intracranial process CT cervical spine done showed no evidence of any cervical spine pathology X-ray pelvis does not show any evidence of fracture Patient admitted to internal medicine service 04/06. Patient seen and examined. Currently on BiPAP with a 50% FiO2. He is complaining of being short of breath on exertion. Denies any cough. Currently in A-fib, rate poorly controlled. Currently on Cardizem drip. 04/07. Patient seen and examined. Currently on 4 L of oxygen. Patient is diuresing well. Patient is anxious today. 04/08. Patient seen and examined. Patient underwent JESS with cardioversion today. Currently sinus rhythm. Said breathing has improved. 04/09. Patient seen and examined. Blood work done showed WBC 7.1, hemoglobin 16.7, sodium 136, potassium 3.8, BUN 102, creatinine 1.94. Continues to be tachycardic. Currently on amiodarone drip 04/10. Patient seen and examined. Patient continues to be tachycardic, currently off of IV amiodarone and switch to oral amiodarone patient is complaining of shortness of breath on exertion. 04/11 patient seen and examined. Patient complaining of palpitations. Gets short of breath on exertion. 04/12. Patient seen and examined. Complaining of lethargic. Patient heart rate is better controlled. Still gets short of breath on exertion. 04/13/2024 Patient is seen in follow-up today being followed by cardiology and pulmonary. Vascular surgery and infectious disease consulted as there is concerns of lower extremity cellulitis along with extreme right heel pain which appears to be a foreign body as noted on x-ray in the heel. Patient reports he is unsure if he stepped on something but has been causing increased pain over the last few days. Will start cefazolin and appreciate input and recommendations from infectious disease along with vascular surgery. Patient maintained on IV steroids and will continue for now along with DuoNeb treatments and diuretic therapy. 04/14/2024 Patient is seen and evaluated in follow-up and has been evaluated by vascular surgery along with concerns of possible foreign body in the right heel. Patient is unable to bear weight reporting significant 10/10 pain. Infectious disease also consulted and continued on cefazolin with concerns of bilateral lower extremity cellulitis more so on the right. Patient does have chronic peripheral vascular disease with poor circulation. Vascular surgery to reevaluate that he will and continue with local wound care 04/15/2024 Patient seen and evaluated in follow-up today and is status post deep culture and removal of a piece of glass in the right heel with vascular surgery. Cultures remain pending and patient is continued on cefazolin. Significant discoloration of the lower extremities noted and patient and nursing staff report the middle toe that was debrided continues to bleed and patient has been noncompliant and continuing to weight-bear and not keep the lower extremities elevated while at rest. Also encouraged strong reinforcement of fluid re strictions although patient is noncompliant with this as well and has been rude with staff demanding more water. Patient is afebrile with no reports of chest pain or shortness of breath. Will await cultures and discuss further with infectious disease and vascular surgery regarding discharge planning. 04/16/2024 Patient is evaluated today resting in bed he is essentially lying flat with his right lower extremity elevated. He has significant redness and swelling to this right lower extremity. Dressing is intact he is postoperative removal of glass from the right heel as well as a deep tissue culture. Preliminary cultures are showing presumptive MRSA. He remains on IV daptomycin for this time pending further cultures. He is reporting significant pain to the right lower extremity. Receiving combination of Tylenol 3's with IV morphine. Continues on oral torsemide. Labs today reveal a sodium level of 138, potassium 5.3, BUN of 66, creatinine of 1.46. 95% on 3 L of oxygen. 04/17/2024 Patient is eval today in follow-up on the medical floor. He reports significant pain to his right foot. He is having increased drainage as well as swelling and redness of the right lower extremity. Continues on IV daptomycin with culture showing MRSA. Sodium level was 135, BUN of 63, creatinine of 1.46. He continues on 3 L of oxygen via nasal cannula. 04/18/2024 Patient is evaluated in follow-up. He does continue to report significant pain to his foot. We will take off the Tylenol 3's and start this patient on Douglas 5 mg every 6 hours as needed. He has been continued on torsemide 10 mg oral daily however with the increase in swelling to his right lower extremity which is now weeping with bulla we will discuss with nephrology about starting the patient back on IV Lasix. Work today reveals a sodium level of 135, BUN of 54, creatinine of 1.36. 04/19/2024 Patient is seen in follow-up today with multiple consultations following. Patient continues to report severe pain of the right lower extremity with swelling and morphine is not helping at all, will add low-dose Dilaudid and also continue with Douglas. Infectious disease following and patient may likely need IV antibiotic therapy. Case management consulted for possible ECF for continued wound care and IV antibiotic therapy on discharge. Patient continues to be noncompliant with fluid restrictions and diet and has been extensively counseled by multiple nursing staff and physicians. Patient does not appear in any respiratory distress and using BiPAP at night along with supplemental oxygen which she chronically wears outpatient. REVIEW OF SYSTEMS: CONSTITUTIONAL: No fever, no malaise,. CARDIOVASCULAR: No chest pain, no palpitations, no syncope. PULMONARY: As mentioned above GASTROINTESTINAL: No diarrhea, no nausea, no vomiting, no abdominal pain. NEUROLOGICAL: No headaches, no weakness, reports of severe right foot pain PHYSICAL EXAMINATION: GENERAL: The patient is alert and oriented x3, not in any acute distress. Well developed, well nourished. Morbidly obese, elderly appearing, ill-appearing HEENT: Pupils are round and equally reacting to light. EOMI. No scleral icterus. No conjunctival pallor. Normocephalic, atraumatic. No pharyngeal erythema. No thyromegaly. CARDIOVASCULAR: S1 and S2 muffled PULMONARY: Diminished breath sound at the bases bilaterally no wheezing or crackles. ABDOMEN: Soft, obese, nontender, nondistended, normoactive bowel sounds. No palpable organomegaly. MUSCULOSKELETAL: No joint swelling or deformity. EXTREMITIES: No cyanosis, clubbing, or pedal edema. Right heel with swelling and right lower extremity redness and swelling NEUROLOGICAL: Gross neurological examination did not reveal any focal deficits. Diffusely weak SKIN: No rashes. Significant erythema and swelling of the right lower extremity Assessment : Acute on chronic hypoxic respiratory failure secondary to CHF and COPD exacerbation Bilateral lower extremity redness and swelling with concerns of cellulitis, more so on the right Right heel pain secondary to a piece of glass lodged in the heel, status post excision of the glass and deep tissue cultures with vascular surgery. MRSA Acute kidney injury secondary to ATN and cardiorenal syndrome Hyperkalemia, improved post Lokelma Hyponatremia Acute on chronic congestive heart failure with preserved EF, 60 to 65% Persistent atrial fibrillation, episode of RVR status post JESS with cardioversion on 04/08/2024 Hypertension Hyperlipidemia Chronic kidney disease IIIa COPD Morbid obesity: BMI 48.7 Obstructive sleep apnea, noncompliant with CPAP outpatient GI prophylaxis DVT prophylaxis Full code Plan: Patient to continue on current medications with cardiology and pulmonary following. Status post removal of glass from right heel. Cultures showing presumptive MRSA patient continues on IV daptomycin. Per nursing staff and patient in the right third toe status postdebridement continues to bleed and vascular surgery will reevaluate. Instructed nursing staff to apply pressure gauze and have instructed patient multiple times to e levate lower extremities and remain off of the area. Patient to continue with pressure offloading of the right heel. Local wound care to the right great toe with Medihoney gel and there is a right ankle wound with silver dressing applied. These should be changed on a daily basis. Continue oral prednisone taper Continue sliding scale with Accu-Cheks before meals and at bedtime and will continue long-acting and adjust insulins accordingly May require SNF pending antibiotics recommendations from ID. IV versus oral. Will follow-up with case management and infectious disease on Saturday regarding treatment plan Patient is extremely noncompliant and rude to staffing with his fluid restrictions and his treatment plan. He is continued on a 1500 mL fluid restriction and is noncompliant. Follow-up with nephrology regarding IV Lasix therapy, currently on oral diuretics Due to multiple complex medical issues, overall prognosis is guarded The impression and plan of care has been dictated by Shayna Garcia, Nurse Practitioner as directed. Dr. Denisse MD I have performed a history and physical examination and medical decision making of this patient, discussed the same with the dictator, and agree with the dictators assessment and plan as written, documented as a scribe. Based on total visit time, I have performed more than 50% of this visit. Objective - Vital Signs Vital signs: Vital Signs Temp 97.9 F 04/19/24 07:39 Pulse 82 04/19/24 08:24 Resp 20 04/19/24 07:39 BP 118/61 04/19/24 07:39 Pulse Ox 93 L 04/19/24 07:39 FiO2 50 04/19/24 04:00 Intake & Output 04/18/24 04/19/24 04/19/24 18:59 06:59 18:59 Intake Total 360 320 Output Total 1900 600 600 Balance -1540 -280 -600 Weight 158 kg Intake: IV 20 Invasive Line 8 20 Oral 360 300 Output: Urine 1900 600 600 Other: Voiding Method Urinal Urinal Urinal - Labs CBC & Chem 7: 04/19/24 07:36 04/19/24 06:49 Labs: Abnormal Lab Results - Last 24 Hours (Table) 04/18/24 04/18/24 04/18/24 Range/Units 11:43 16:18 20:11 WBC (3.8-10.6) k/uL MCHC (31.0-37.0) g/dL Plt Count (150-450) k/uL Neutrophils # (1.3-7.7) k/uL Lymphocytes # (1.0-4.8) k/uL Sodium (137-145) mmol/L Carbon Dioxide (22-30) mmol/L BUN (9-20) mg/dL Creatinine (0.66-1.25) mg/dL POC Glucose (mg/dL) 182 H 186 H 261 H (70-110) mg/dL Calcium (8.4-10.2) mg/dL 04/19/24 04/19/24 04/19/24 Range/Units 06:49 06:55 07:36 WBC 11.3 H (3.8-10.6) k/uL MCHC 30.0 L (31.0-37.0) g/dL Plt Count 94 L (150-450) k/uL Neutrophils # 10.0 H (1.3-7.7) k/uL Lymphocytes # 0.7 L (1.0-4.8) k/uL Sodium 136 L (137-145) mmol/L Carbon Dioxide 33 H (22-30) mmol/L BUN 56 H (9-20) mg/dL Creatinine 1.35 H (0.66-1.25) mg/dL POC Glucose (mg/dL) 134 H (70-110) mg/dL Calcium 7.9 L (8.4-10.2) mg/dL
[2024-04-20 06:24] LABS: Basophils % (A) 0 %; Eosinophils # (A) 0.1 k/uL (0-0.7); Eosinophils % (A) 1 %; HCT 47.8 % (39.0-53.0); HGB 14.8 gm/dL (13.0-17.5); Hypochromasia Moderate; Lymphocytes # (A) 0.6 k/uL (1.0-4.8); Lymphocytes % (A) 5 %; MCV 93.4 fL (80.0-100.0); Mean Platelet Volume 8.3; Monocytes # (A) 0.5 k/uL (0-1.0); Monocytes % (A) 4 %; Neutrophils # (A) 10.7 k/uL (1.3-7.7); Neutrophils % (A) 89 %; RBC 5.12 m/uL (4.30-5.90); WBC 12.1 k/uL (3.8-10.6)
[2024-04-20 06:24] LABS: Glucose,Whole Blood 145 mg/dL (70-110)
[2024-04-20 06:25] LABS: Platelet Count 89 k/uL (150-450)
[2024-04-20 06:27] LABS: African American GFR (CKD) 65 (>60 ml/min/1.73 sqM); Blood Urea Nitrogen 56 mg/dL (9-20); Calcium 8.2 mg/dL (8.4-10.2); Chloride 97 mmol/L (98-107); Glucose 115 mg/dL (74-99); Non-African American GFR(CKD) 56 (>60 ml/min/1.73 sqM); Potassium 4.7 mmol/L (3.5-5.1); Sodium 136 mmol/L (137-145)
[2024-04-20 06:35] LABS: Anion Gap 2 mmol/L; Carbon Dioxide 37 mmol/L (22-30)
--- NOTE | 2024-04-20 11:21 | P.PN ---
Subjective Patient is seen in follow-up for acute kidney injury on chronic kidney disease. Renal function stable. On Demadex. Nonoliguric. Vital signs are stable. General: No acute distress. HEENT: Head exam is unremarkable. On 3 L nasal cannula. LUNGS: No audible rhonchi or wheezes. HEART: Rate and Rhythm are regular. ABDOMEN: Obese, no distention. EXTREMITITES: Trace edema. Right lower extremity wrapped. Objective - Vital Signs Vital signs: Vital Signs Temp 97.8 F 04/20/24 08:00 Pulse 101 H 04/20/24 08:00 Resp 22 04/20/24 08:00 BP 109/65 04/20/24 08:00 Pulse Ox 97 04/20/24 08:42 FiO2 50 04/19/24 04:00 Intake & Output 04/19/24 04/20/24 04/20/24 18:59 06:59 18:59 Intake Total 2634 237 180 Output Total 1600 2000 Balance 1034 -1763 180 Weight 158.8 kg Intake: Oral 2634 237 180 Output: Urine 1600 2000 Other: Voiding Method Urinal Urinal Urinal - Labs CBC & Chem 7: 04/20/24 05:53 04/20/24 05:53 Labs: Abnormal Lab Results - Last 24 Hours (Table) 04/19/24 04/19/24 04/19/24 Range/Units 11:45 16:42 20:01 WBC (3.8-10.6) k/uL Plt Count (150-450) k/uL Neutrophils # (1.3-7.7) k/uL Lymphocytes # (1.0-4.8) k/uL Sodium (137-145) mmol/L Chloride (98-107) mmol/L Carbon Dioxide (22-30) mmol/L BUN (9-20) mg/dL Creatinine (0.66-1.25) mg/dL Glucose (74-99) mg/dL POC Glucose (mg/dL) 243 H 189 H 255 H (70-110) mg/dL Calcium (8.4-10.2) mg/dL 04/20/24 04/20/24 04/20/24 Range/Units 05:53 05:53 06:23 WBC 12.1 H (3.8-10.6) k/uL Plt Count 89 L (150-450) k/uL Neutrophils # 10.7 H (1.3-7.7) k/uL Lymphocytes # 0.6 L (1.0-4.8) k/uL Sodium 136 L (137-145) mmol/L Chloride 97 L (98-107) mmol/L Carbon Dioxide 37 H (22-30) mmol/L BUN 56 H (9-20) mg/dL Creatinine 1.35 H (0.66-1.25) mg/dL Glucose 115 H (74-99) mg/dL POC Glucose (mg/dL) 145 H (70-110) mg/dL Calcium 8.2 L (8.4-10.2) mg/dL Assessment and Plan Assessment: Acute kidney injury secondary to ATN secondary to cardiorenal syndrome. No hydronephrosis noted on kidney ultrasound done in December 2023. Creatinine 2.9 on admission and is stable at 1.35 today. Renal fx had worsened due to hemodynamic instability/afib w/rvr. S/p JESS with cardioversion 04/08/24. UA benign. Hypervolemic hyponatremia. Improved. Chronic kidney disease stage IIIa with baseline creatinine 1.2-1.4 secondary to nephrosclerosis. Volume overload. Improved with diuresis. Hyperphosphatemia secondary to acute kidney injury. Phosphorus level 7.0 dated April 05, 2024 and 3.1 on 04/07/24. Resolved Morbid obesity. Acute hypoxic respiratory failure. Improved. Acute on chronic diastolic CHF Plan: Maintain torsemide 10 mg once daily. Maintain Farxiga. Low-salt diet and 1500 cc fluid restriction. Continue to monitor renal function and urine output. Repeat BMP and magnesium level 2 to 3 days postdischarge. Follow-up outpatient 1 week postdischarge.
[2024-04-20] MEDS ORDERED: diphenhydrAMINE 25 MG CAP PO PRN (11:35)
[2024-04-20 11:42] LABS: Glucose,Whole Blood 268 mg/dL (70-110)
[2024-04-20] MEDS: CALCIUM CARBONATE 500 MG CHEWABLE PO PRN (11:44)
--- NOTE | 2024-04-20 15:44 | P.PN ---
Subjective Progress Note Date: 04/20/24 Principal diagnosis: Acute on chronic hypoxic and hypercapnic respiratory failure secondary to chronic diastolic congestive heart failure and chronic obstructive pulmonary disease FEV1 of 22% This is a 58-year-old white male with morbid obesity, chronic diastolic congestive heart failure, chronic obstructive pulmonary disease, chronic kidney disease, familiar to my service from previous admissions, patient presented to the ER with few days history of increased shortness of breath, weakness, generalized medical debility. No chest pain, no fever, no chills, no hemoptysis, workup in the ER included CBC that showed WBC count of 7.1 hemoglobin 15.6, abnormal potassium of 5.6 abnormal renal profile with a BUN of 119 creatinine 2.94 and abnormal BNP level of 13,300. On his initial arrival, patient was in moderate respiratory distress he was placed on BiPAP 14/6/50%, when I saw the patient I recommended an ABG that showed a pO2 of 68 pCO2 55 pH of 7.35 and this was on BiPAP. Chest x-ray showed evidence of mild interstitial edema and the patient is now on Lasix 60 mg IV push twice daily. Patient is on bronchodilators he is also on methylprednisolone 60 mg IV push every 6 hours. Progress note dated April 06, 2024. 58-year-old male seen today in room 364. He was seen in consultation yesterday. The patient has a history of chronic diastolic CHF, and chronic obstructive pulmonary disease among other things. Currently he is on 6 L nasal cannula. No IV fluids. He has a BiPAP device in the room, with settings of 14/6, and 50%. Clinically, the patient states that he starting to feel a bit better. His chest x-ray revealed mild interstitial edema. He was placed on Lasix. He is also getting bronchodilators and corticosteroids. Current laboratory data includes a completely normal CBC. Sodium 137, potassium 4.4, chlorides 97, CO2 34, BUN 97, creatinine 1.60. Glucose is 386. Progress note dated April 07, 2024. 58-year-old male seen in room 364. Currently, the patient is not receiving any IV fluids. The patient is currently on 4 L nasal cannula. He is walking around the room. He did use both BiPAP and nasal O2 last night. He used BiPAP for about 4 hours. His settings were 14/6, and 50%. Current labs include a white count 10.6, hemoglobin 16.3, hematocrit 48.2, and a normal platelet count. Sodium 137, potassium 3.8, chlorides 98, CO2 36, BUN 96, creatinine 1.49. Glucose is 210. Progress note dated April 08, 2024. 58-year-old male who is seen today in room 364. The patient was to have a transesophageal echocardiogram, and cardioversion, by cardiology today. He remains on 4 L of oxygen by nasal cannula. According to the nurses, the patient had a relatively uneventful night. Laboratory data includes a sodium 137, potas sium 3.8, chlorides 94, CO2 35, BUN 105, creatinine 1.93. Glucose is 242. Calcium 9.4. Progress note dated April 09, 2024. The patient had a transesophageal echocardiogram and cardioversion, yesterday, but unfortunately, he is back in atrial fibrillation. He is seen today in room 364. He is on amiodarone at 0.5 mg/min. He is getting nasal O2 at 3 L by nasal cannula. The patient did spend some time last night on BiPAP, with settings of 14/6, 50%. Current laboratory data includes a white count 7.9, hemoglobin 16.7, hematocrit 52.3, and a platelet count is normal. Sodium 136, potassium 3.8, chlorides 91, CO2 38, BUN 102, and creatinine 1.94. Glucose is 361. Albumin is 4. Progress note dated April 10, 2024. 58-year-old male seen again in room 364. The patient continues on oxygen, at 3 L. In addition, because of ongoing atrial fibrillation and RVR, the patient continues on amiodarone 0.5 mg/min. The patient does have some mild shortness of breath on exertion, no other complaints. He denies any chest pain. Current labs include a sodium 131, potassium 4.5, chlorides 93, CO2 29, BUN 96, and creatinine 1.81. Calcium is 8.8. Glucose is 293. Progress note dated April 11, 2024. 58-year-old male seen in room 364. The patient is sitting on the side of his bed. He is in no acute distress. The patient continues on 3 L nasal cannula. No IV fluids. Yesterday he was on amiodarone drip. That has been turned off. He does use BiPAP at nighttime, with settings of 14/6, and 50%. Current labs with a white count 17.8, hemoglobin 17.1, hematocrit 52.5, and a platelet count of 151,000. Sodium 135, potassium 4.5, chloride 94, CO2 33, BUN 94, creatinine 1.92. Glucose is 290. Progress note dated April 12, 2024. 58-year-old male who is seen today in room 364. The patient remains on O2 at 3 L. He does use BiPAP at nighttime, with settings of 14/6, and 50%. The patient continues in atrial fibrillation. His lungs are clear to auscultation on examination. Labs include sodium 135, potassium 4.9, chlorides 97, CO2 35, BUN 80, creatinine 1.60. Glucose is 229. Calcium is 8.8. 04/13/2024, the patient is on room air oxygen. Awake and alert and communic ating. Denies having any significant respiratory difficulties. In terms of diuretics, the patient is on Demadex 10 mg p.o. daily and is also on Aldactone 12.5 mg p.o. daily. He remains on DuoNeb device treatments [id number]. He is on Symbicort as maintenance and IV Solu-Medrol 40 mg every 12 hours. The blood work shows a BUN of 76 with a creatinine of 1.4 and sodium is at 136 and a potassium level of 5.5. Serum bicarb is at 32. WBC count at 17.8 with a hemoglobin of 17 and a platelet count of 151. Most recent chest x-ray was from 04/08/2024 and it showed improved CHF. Patient denies having any other new complaints for now. 04/14/2024, the patient's overall respiratory status is stable. The x-ray of the foot was done yesterday and it showed a radiodense lesion in the heel, s uggesting a foreign body. Based on that, the patient will have another evaluation with the surgical team. Meanwhile, respite status is stable. The patient is currently on 3 L of oxygen by nasal cannula with a pulse ox of 98%. The patient remains on DuoNeb updrafts. The patient is on Symbicort. The patient is also on a combination of Aldactone and Demadex. He remains on IV Solu-Medrol 40 mg every 12 hours. Blood work shows a BUN of 69 with a creatinine of 1.4 and a sodium level is 137 and a potassium level is 5.6 and a serum bicarb is at 36. The most recent CBC showed a WBC of 17.9 and a hemoglobin of 17.1. The patient remains on IV cefazolin. The patient remains on Levemir insulin 15 units twice daily plus a sliding scale coverage. Denies having any significant complaints otherwise. Ultrasound Doppler of the lower extremity was negative for DVT. On today's evaluation of 04/15/2024, the patient is calm and comfortable without having any major respiratory difficulties. The patient has no respiratory distress. Patient is currently on 3 L of oxygen by nasal cannula with pulse ox of 96%. No cough or sputum production or chest tightness or wheezing. Limited edema lower extremities bilaterally more so on the right. The patient had another surgical evaluation and a piece of glass was removed from his right heel by the surgical team. Cultures from the right lower extremity are still pending and the patient remains on IV cefazolin. Continues to have discoloration of the right lower extremity and the patient is post surgical debridement. Otherwise, rest of the medication remains unchanged. BUN 16 with a creatinine of 1.5 and a creatinine remained stable. Sodium is at 136, potassium is at 4.8, chloride 96 with a bicarb of 39. 04/16/2024, the patient is working with physical therapy. No new complaints. The wound cultures showed MRSA and the patient was started on daptomycin. IV cefazolin has been discontinued. BUN 66 with a creatinine 1.4 and sodium levels at 138 and a potassium level is at 5.3. He is afebrile hemodynamically stable. He remains on 2 L of oxygen by nasal cannula with a pulse ox of 95%. The patient remains on anticoagulation with Eliquis. The patient remains on Demadex 10 mg p.o. daily. Rest of the medication remain unchanged. On a prednisone burst taper starting with 30 mg as part of his best burst taper. 04/17/2024, the patient is being seen for a follow-up. Complaining of generalized bodyaches. No respiratory difficulties. Remains on 3 Suboxone by nasal cannula. Remains on the same diuretic dose and the patient is on Demadex 10 mg p.o. daily. Remains on the same antibiotic coverage which includes IV daptomycin. Sodium levels at 135, BUN 63 with a creatinine of 1.4 and a potassium level is at 4.7. Wound culture was positive for MRSA. No altered mentation. Mobility is limited and the patient is working with physical therapy. 04/18/2024, no interval change in the patient's overall respiratory status. No new complaints for now. Labs were noted. BUN is at 54 with a creatinine 1.3 and sodium levels at 135. The patient remains on daptomycin. Remains on a combination of Aldactone and torsemide. No new complaints otherwise for now. 04/19/2024, no new complaints. The patient continues to have cellulitis and blistering in his right lower extremity along with MRSA wounds. Remains on daptomycin. No respiratory difficulties for now. Oxygen requirements remain unchanged 3 L/min nasal cannula. Nephrology is also on the case. ID is on the case. Await second 11 labile of 15.20 platelet count of 94. BUN is 56 with a creatinine 1.35. Seen today on 04/20/2024, patient remains on antibiotics for his cellulitis and blistering the right lower extremity with MRSA infection, patient is still on daptomycin, being followed closely by infectious disease. Pulmonary hernandez he seems to be comfortable, does not seem to be in any distress. On 3 L nasal cannula with O2 sats of 94%WBC count is 12.1 hemoglobin is 14.8 basic metabolic profile is normal BUN is 56 creatinine 1.35 bicarb is 37 Objective - Vital Signs Vital signs: Vital Signs Temp 98.3 F 04/20/24 15:30 Pulse 88 04/20/24 15:30 Resp 20 04/20/24 15:30 BP 122/80 04/20/24 15:30 Pulse Ox 94 L 04/20/24 15:30 FiO2 50 04/19/24 04:00 Intake & Output 04/19/24 04/20/24 04/20/24 18:59 06:59 18:59 Intake Total 2634 237 600 Output Total 1600 1999 Balance 1034 -3613 -300 Weight 158.8 kg Intake: Oral 2634 237 600 Output: Urine 1600 1999 Other: Voiding Method Urinal Urinal Urinal - Exam Physical exam: Reveals 62-year-old white male in no distress on 3 L nasal cannula HEENT examination is grossly unremarkable. Mucous membranes are moist. No oral lesions. Neck supple. Full range of motion. No adenopathy thyromegaly or neck vein distention. Cardiovascular examination reveals an irregular rhythm and rate. S1-S2 normal. No S3 or S4. No discernible murmur noted. Lungs reveal diminished bilateral breath sounds. No crackles rhonchi or wheezes Abdomen soft bowel sounds are heard. No masses or tenderness. Extremities reveal 3+ bilateral lower extremity pitting edema. Blistering cellulitis to right lower extremity wrapped with sterile dressing Skin reveals multiple superficial venous stasis ulcers. Neurologic: Alert oriented x 3 no gross focal deficit Psychiatric: Normal mood affect and normal to status examination - Labs CBC & Chem 7: 04/20/24 05:53 04/20/24 05:53 Labs: Abnormal Lab Results - Last 24 Hours (Table) 04/19/24 04/19/24 04/20/24 Range/Units 16:42 20:01 05:53 WBC 12.1 H (3.8-10.6) k/uL Plt Count 89 L (150-450) k/uL Neutrophils # 10.7 H (1.3-7.7) k/uL Lymphocytes # 0.6 L (1.0-4.8) k/uL Sodium (137-145) mmol/L Chloride (98-107) mmol/L Carbon Dioxide (22-30) mmol/L BUN (9-20) mg/dL Creatinine (0.66-1.25) mg/dL Glucose (74-99) mg/dL POC Glucose (mg/dL) 189 H 255 H (70-110) mg/dL Calcium (8.4-10.2) mg/dL 04/20/24 04/20/24 04/20/24 Range/Units 05:53 06:23 11:41 WBC (3.8-10.6) k/uL Plt Count (150-450) k/uL Neutrophils # (1.3-7.7) k/uL Lymphocytes # (1.0-4.8) k/uL Sodium 136 L (137-145) mmol/L Chloride 97 L (98-107) mmol/L Carbon Dioxide 37 H (22-30) mmol/L BUN 56 H (9-20) mg/dL Creatinine 1.35 H (0.66-1.25) mg/dL Glucose 115 H (74-99) mg/dL POC Glucose (mg/dL) 145 H 268 H (70-110) mg/dL Calcium 8.2 L (8.4-10.2) mg/dL Assessment and Plan Assessment: Impression: Acute on chronic hypoxemic, and hypercapnic respiratory failure, secondary to an exacerbation of chronic diastolic congestive heart failure. Chest x-ray showing cardiomegaly, pulmonary vascular congestion, interstitial edema. Very severe chronic obstructive pulmonary disease, with an FEV1 22% of predicted Obstructive sleep apnea, patient is noncompliant with his noninvasive positive airway pressure machine Morbid obesity, with a BMI of 48.7 kg/m Acute on chronic kidney disease Hyperkalemia, secondary to above Chronic lower extremity edema, with multiple venous stasis ulcers History of hypertension History of hyperlipidemia Former tobacco dependence Severe cellulitis of right lower extremity Recommendation: Continue oxygen and titrate accordingly Continue BiPAP as needed Continue diuretics Continue antibiotics Continue bronchodilators for COPD Continue prednisone 30 mg p.o. daily taper on outpatient basis Continue physical therapy Continue Eliquis Continue to monitor electrolytes and renal profile Overall prognosis is extremely poor and guarded. Will continue to follow Time with Patient: Less than 30
--- NOTE | 2024-04-20 16:01 | XR ---
EXAMINATION TYPE: XR chest 1V DATE OF EXAM: 04/20/2024 COMPARISON: 04/08/2024 HISTORY: PICC line TECHNIQUE: Single frontal view of the chest is obtained. FINDINGS: There is a right-sided PICC line terminating in the SVC/RI junction. There is marked cardiomegaly and pulmonary vascular congestion with interstitial edema. IMPRESSION: 1. PICC line in the right upper extremity terminating in the SVC/RA junction. 2. Worsening CHF IMPRESSION: No acute process. [facility], , 04/20/2024 3:58 PM
[2024-04-20 16:22] LABS: Glucose,Whole Blood 164 mg/dL (70-110)
[2024-04-20 20:11] LABS: Glucose,Whole Blood 290 mg/dL (70-110)
--- NOTE | 2024-04-21 04:46 | P.PN ---
Subjective Progress Note Date: 04/20/24 patient is 58-year-old gentleman past medical history significant for congestive heart failure, atrial fibrillation, hypertension, hyperlipidemia, chronic kidney disease, COPD, and morbid obesity who presented the ER because of generalized debility and increasing weakness. Patient stated that he has been feeling like this for the last few weeks. Patient has been complaining of shortness of breath at rest as on exertion. Patient states that he is unable to get around. Denies any chest pain. There is no complaint of palpitations. Patient also complained of increased shakiness and tremors. Denies any fever or chills. There is no complaint of chest pain. There is no complaint orthopnea or PND. Because of the symptoms, patient presented to the ER Initial lab work done in the ER showed WBC 1.1, hemoglobin 15.6, platelet count 240, INR 1, sodium 133, potassium 5.6, chloride 96, BUN 119, creatinine 2.94 glucose 88, calcium 7.7, magnesium 2.6, bilirubin 1, troponin 0.017, proBNP 13,300 EKG done in the ER showed heart rate of 78, irregular rhythm, no ST segment elevation or depression seen, T-wave inversions seen in leads II, III and aVF. V1 to V4. Chest x-ray done in the ER showed mild bibasilar infiltrates, marked cardiomegaly CT head done showed no acute intracranial process CT cervical spine done showed no evidence of any cervical spine pathology X-ray pelvis does not show any evidence of fracture Patient admitted to internal medicine service 04/06. Patient seen and examined. Currently on BiPAP with a 50% FiO2. He is complaining of being short of breath on exertion. Denies any cough. Currently in A-fib, rate poorly controlled. Currently on Cardizem drip. 04/07. Patient seen and examined. Currently on 4 L of oxygen. Patient is diuresing well. Patient is anxious today. 04/08. Patient seen and examined. Patient underwent JESS with cardioversion today. Currently sinus rhythm. Said breathing has improved. 04/09. Patient seen and examined. Blood work done showed WBC 7.1, hemoglobin 16.7, sodium 136, potassium 3.8, BUN 102, creatinine 1.94. Continues to be tachycardic. Currently on amiodarone drip 04/10. Patient seen and examined. Patient continues to be tachycardic, currently off of IV amiodarone and switch to oral amiodarone patient is complaining of shortness of breath on exertion. 04/11 patient seen and examined. Patient complaining of palpitations. Gets short of breath on exertion. 04/12. Patient seen and examined. Complaining of lethargic. Patient heart rate is better controlled. Still gets short of breath on exertion. 04/13/2024 Patient is seen in follow-up today being followed by cardiology and pulmonary. Vascular surgery and infectious disease consulted as there is concerns of lower extremity cellulitis along with extreme right heel pain which appears to be a foreign body as noted on x-ray in the heel. Patient reports he is unsure if he stepped on something but has been causing increased pain over the last few days. Will start cefazolin and appreciate input and recommendations from infectious disease along with vascular surgery. Patient maintained on IV steroids and will continue for now along with DuoNeb treatments and diuretic therapy. 04/14/2024 Patient is seen and evaluated in follow-up and has been evaluated by vascular surgery along with concerns of possible foreign body in the right heel. Patient is unable to bear weight reporting significant 10/10 pain. Infectious disease also consulted and continued on cefazolin with concerns of bilateral lower extremity cellulitis more so on the right. Patient does have chronic peripheral vascular disease with poor circulation. Vascular surgery to reevaluate that he will and continue with local wound care 04/15/2024 Patient seen and evaluated in follow-up today and is status post deep culture and removal of a piece of glass in the right heel with vascular surgery. Cultures remain pending and patient is continued on cefazolin. Significant discoloration of the lower extremities noted and patient and nursing staff report the middle toe that was debrided continues to bleed and patient has been noncompliant and continuing to weight-bear and not keep the lower extremities elevated while at rest. Also encouraged strong reinforcement of fluid re strictions although patient is noncompliant with this as well and has been rude with staff demanding more water. Patient is afebrile with no reports of chest pain or shortness of breath. Will await cultures and discuss further with infectious disease and vascular surgery regarding discharge planning. 04/16/2024 Patient is evaluated today resting in bed he is essentially lying flat with his right lower extremity elevated. He has significant redness and swelling to this right lower extremity. Dressing is intact he is postoperative removal of glass from the right heel as well as a deep tissue culture. Preliminary cultures are showing presumptive MRSA. He remains on IV daptomycin for this time pending further cultures. He is reporting significant pain to the right lower extremity. Receiving combination of Tylenol 3's with IV morphine. Continues on oral torsemide. Labs today reveal a sodium level of 138, potassium 5.3, BUN of 66, creatinine of 1.46. 95% on 3 L of oxygen. 04/17/2024 Patient is eval today in follow-up on the medical floor. He reports significant pain to his right foot. He is having increased drainage as well as swelling and redness of the right lower extremity. Continues on IV daptomycin with culture showing MRSA. Sodium level was 135, BUN of 63, creatinine of 1.46. He continues on 3 L of oxygen via nasal cannula. 04/18/2024 Patient is evaluated in follow-up. He does continue to report significant pain to his foot. We will take off the Tylenol 3's and start this patient on Sandy 5 mg every 6 hours as needed. He has been continued on torsemide 10 mg oral daily however with the increase in swelling to his right lower extremity which is now weeping with bulla we will discuss with nephrology about starting the patient back on IV Lasix. Work today reveals a sodium level of 135, BUN of 54, creatinine of 1.36. 04/19/2024 Patient is seen in follow-up today with multiple consultations following. Patient continues to report severe pain of the right lower extremity with swelling and morphine is not helping at all, will add low-dose Dilaudid and also continue with Sandy. Infectious disease following and patient may likely need IV antibiotic therapy. Case management consulted for possible ECF for continued wound care and IV antibiotic therapy on discharge. Patient continues to be noncompliant with fluid restrictions and diet and has been extensively counseled by multiple nursing staff and physicians. Patient does not appear in any respiratory distress and using BiPAP at night along with supplemental oxygen which she chronically wears outpatient. 04/20/2024 Patient is seen in follow-up this morning maintained on IV daptomycin for right lower extremity cellulitis with infectious disease following. Plan is for patient to receive a PICC line and continue with IV antibiotics outpatient. Case management is following working on discharge planning to ECF as patient requires insurance authorization. Currently pending at this time. Patient is afebrile reports some acid reflux and will continue on Protonix and also add Tums as needed. Patient continues to report right foot and leg pain and needs constant reencouragement on elevating the lower extremity and to remain nonweightbearing of that heel. Patient blood sugars have been up and down and will continue current regimen and adjust insulins accordingly. Continue to reinforce strict fluid restrictions. REVIEW OF SYSTEMS: CONSTITUTIONAL: No fever, no malaise,. CARDIOVASCULAR: No chest pain, no palpitations, no syncope. PULMONARY: As mentioned above GASTROINTESTINAL: No diarrhea, no nausea, no vomiting, no abdominal pain. NEUROLOGICAL: No headaches, no weakness, reports of severe right foot pain PHYSICAL EXAMINATION: GENERAL: The patient is alert and oriented x3, not in any acute distress. Well developed, well nourished. Morbidly obese, elderly appearing, ill-appearing HEENT: Pupils are round and equally reacting to light. EOMI. No scleral icterus. No conjunctival pallor. Normocephalic, atraumatic. No pharyngeal erythema. No thyromegaly. CARDIOVASCULAR: S1 and S2 muffled PULMONARY: Diminished breath sound at the bases bilaterally no wheezing or crackles. ABDOMEN: Soft, obese, nontender, nondistended, normoactive bowel sounds. No palpable organomegaly. MUSCULOSKELETAL: No joint swelling or deformity. EXTREMITIES: No cyanosis, clubbing, or pedal edema. Right heel with swelling and right lower extremity redness and swelling, although appears slightly improved NEUROLOGICAL: Gross neurological examination did not reveal any focal deficits. Diffusely weak SKIN: No rashes. Significant erythema and swelling of the right lower extremity Assessment : Acute on chronic hypoxic respiratory failure secondary to CHF and COPD exacerbation Bilateral lower extremity redness and swelling with concerns of cellulitis, more so on the right Right heel pain secondary to a piece of glass lodged in the heel, status post excision of the glass and deep tissue cultures with vascular surgery. MRSA Acute kidney injury secondary to ATN and cardiorenal syndrome Hyperkalemia, improved post Lokelma Hyponatremia Acute on chronic congestive heart failure with preserved EF, 60 to 65% Persistent atrial fibrillation, episode of RVR status post JESS with cardioversion on 04/08/2024 Hypertension Hyperlipidemia Chronic kidney disease IIIa COPD Morbid obesity: BMI 48.7 Obstructive sleep apnea, noncompliant with CPAP outpatient GI prophylaxis DVT prophylaxis Full code Plan: Patient to continue on current medications with cardiology and pulmonary foll owing. Status post removal of glass from right heel. Cultures showing presumptive MRSA patient continues on IV daptomycin. Discussed with infectious disease and plan will be to continue IV antibiotics on discharge. PICC line is ordered and pending Local wound care to the right great toe with Medihoney gel and there is a right ankle wound with silver dressing applied. These should be changed on a daily basis. Continue to encourage and reinforce elevating lower extremities especially the right while at rest Continue oral prednisone taper Continue sliding scale with Accu-Cheks before meals and at bedtime and will continue long-acting and adjust insulins accordingly Case management following as patient will require insurance authorization to go to [facility]. Currently pending at this time. He is continued on a 1500 mL fluid restriction and is noncompliant. Due to multiple complex medical issues, overall prognosis is guarded Possible discharge planning in the next 24 to 48 hours once cleared by infectious disease The impression and plan of care has been dictated by Shayna Garcia, Nurse Practitioner as directed. Dr. Denisse MD I have performed a history and physical examination and medical decision making of this patient, discussed the same with the dictator, and agree with the dictators assessment and plan as written, documented as a scribe. Based on total visit time, I have performed more than 50% of this visit. Objective - Vital Signs Vital signs: Vital Signs Temp 97.7 F 04/20/24 04:00 Pulse 86 04/20/24 04:00 Resp 20 04/20/24 04:00 BP 105/69 04/20/24 04:00 Pulse Ox 97 04/20/24 08:42 FiO2 50 04/19/24 04:00 Intake & Output 04/19/24 04/20/24 04/20/24 18:59 06:59 18:59 Intake Total 2634 237 180 Output Total 1600 1999 Balance 1034 -1763 180 Weight 158.8 kg Intake: Oral 2634 237 180 Output: Urine 1600 1999 Other: Voiding Method Urinal Urinal - Labs CBC & Chem 7: 04/20/24 05:53 04/20/24 05:53 Labs: Abnormal Lab Results - Last 24 Hours (Table) 04/19/24 04/19/24 04/19/24 Range/Units 11:45 16:42 20:01 WBC (3.8-10.6) k/uL Plt Count (150-450) k/uL Neutrophils # (1.3-7.7) k/uL Lymphocytes # (1.0-4.8) k/uL Sodium (137-145) mmol/L Chloride (98-107) mmol/L Carbon Dioxide (22-30) mmol/L BUN (9-20) mg/dL Creatinine (0.66-1.25) mg/dL Glucose (74-99) mg/dL POC Glucose (mg/dL) 243 H 189 H 255 H (70-110) mg/dL Calcium (8.4-10.2) mg/dL 04/20/24 04/20/24 04/20/24 Range/Units 05:53 05:53 06:23 WBC 12.1 H (3.8-10.6) k/uL Plt Count 89 L (150-450) k/uL Neutrophils # 10.7 H (1.3-7.7) k/uL Lymphocytes # 0.6 L (1.0-4.8) k/uL Sodium 136 L (137-145) mmol/L Chloride 97 L (98-107) mmol/L Carbon Dioxide 37 H (22-30) mmol/L BUN 56 H (9-20) mg/dL Creatinine 1.35 H (0.66-1.25) mg/dL Glucose 115 H (74-99) mg/dL POC Glucose (mg/dL) 145 H (70-110) mg/dL Calcium 8.2 L (8.4-10.2) mg/dL
[2024-04-21 06:13] LABS: Glucose,Whole Blood 120 mg/dL (70-110)
--- NOTE | 2024-04-21 10:44 | P.PN ---
Subjective Patient is seen in follow-up for acute kidney injury on chronic kidney disease. Renal function stable as of yesterday. On Demadex. Nonoliguric. Vital signs are stable. General: No acute distress. HEENT: Head exam is unremarkable. On 3 L nasal cannula. LUNGS: No audible rhonchi or wheezes. HEART: Rate and Rhythm are regular. ABDOMEN: Obese, no distention. EXTREMITITES: Trace edema. Right lower extremity wrapped. Objective - Vital Signs Vital signs: Vital Signs Temp 97.6 F 04/21/24 08:00 Pulse 78 04/21/24 09:39 Resp 20 04/21/24 08:00 BP 144/71 04/21/24 08:00 Pulse Ox 96 04/21/24 09:22 FiO2 50 04/19/24 04:00 Intake & Output 04/20/24 04/21/24 04/21/24 18:59 06:59 18:59 Intake Total 780 720 Output Total 1800 1000 700 Balance -1020 -1000 20 Weight 160.3 kg Intake: Oral 780 720 Output: Urine 1800 1000 700 Other: Voiding Method Urinal Urinal Urinal - Labs CBC & Chem 7: 04/20/24 05:53 04/20/24 05:53 Labs: Abnormal Lab Results - Last 24 Hours (Table) 04/20/24 04/20/24 04/20/24 Range/Units 11:41 16:20 20:10 POC Glucose (mg/dL) 268 H 164 H 290 H (70-110) mg/dL 04/21/24 Range/Units 06:12 POC Glucose (mg/dL) 120 H (70-110) mg/dL Assessment and Plan Assessment: Acute kidney injury secondary to ATN secondary to cardiorenal syndrome. No hydronephrosis noted on kidney ultrasound done in December 2023. Creatinine 2.9 on admission and is stable at 1.35 yesterday. renal fx had worsened due to hemodynamic instability/afib w/rvr. S/p JESS with cardioversion 04/08/24. UA benign. Hypervolemic hyponatremia. Improved. Chronic kidney disease stage IIIa with baseline creatinine 1.2-1.4 secondary to nephrosclerosis. Volume overload. Improved with diuresis. Hyperphosphatemia secondary to acute kidney injury. Phosphorus level 7.0 dated April 05, 2024 and 3.1 on 04/07/24. Resolved Morbid obesity. Acute hypoxic respiratory failure. Improved. Acute on chronic diastolic CHF Lower extremity cellulitis on antibiotics. Plan: Maintain torsemide 10 mg once daily. Hold Farxiga due to acute infection in the lower extremities. Low-salt diet and 1500 cc fluid restriction. Continue to monitor renal function and urine output. Repeat BMP and magnesium level 2 to 3 days postdischarge. Follow-up outpatient 1 week postdischarge.
[2024-04-21 11:20] LABS: Glucose,Whole Blood 213 mg/dL (70-110)
--- NOTE | 2024-04-21 14:09 | P.PN ---
Subjective Progress Note Date: 04/20/24 Principal diagnosis: Reason for follow-up is a right lower extremity cellulitis and right foot foreign body Patient is a 58-year-old male with a past medical history significant for atrial fibrillation asthma heart failure COPD hypertension hyperlipidemia sleep apnea presented to hospital for evaluation of increasing shortness of breath patient also developed increasing redness to the right leg with pain to the right heel with the x-ray showing evidence of foreign body. On today's evaluation that is 04/20/2024, Patient is afebrile patient is currently on 3 L nasal oxygen and still complaining of shortness of breath on minimal exertion, the patient denies any chest pain or cough, the patient denies any nausea vomiting did not have any abdominal pain and no diarrhea on the patient will have significant swelling to the lower extremity and drainage. Patient white count is 12.1, creatinine is 1.35 Objective - Vital Signs Vital signs: Vital Signs Temp 97.8 F 04/20/24 08:00 Pulse 93 04/20/24 12:00 Resp 20 04/20/24 12:00 BP 117/81 04/20/24 12:00 Pulse Ox 92 L 04/20/24 12:00 FiO2 50 04/19/24 04:00 Intake & Output 04/19/24 04/20/24 04/20/24 18:59 06:59 18:59 Intake Total 2634 237 420 Output Total 1600 1999 900 Balance 3222 -8233 -434 Weight 158.8 kg Intake: Oral 2634 237 420 Output: Urine 1600 1999 900 Other: Voiding Method Urinal Urinal Urinal - Exam GENERAL DESCRIPTION: Middle-age male lying in bed in no distress RESPIRATORY SYSTEM: Unlabored breathing , decreased breath sounds at bases HEART: S1 S2 regular rate and rhythm , ABDOMEN: Soft , no tenderness EXTREMITIES: Right leg is currently dressed with Kerlix did have drainage on the dressing - Labs CBC & Chem 7: 04/20/24 05:53 04/20/24 05:53 Labs: Abnormal Lab Results - Last 24 Hours (Table) 04/19/24 04/19/24 04/20/24 Range/Units 16:42 20:01 05:53 WBC 12.1 H (3.8-10.6) k/uL Plt Count 89 L (150-450) k/uL Neutrophils # 10.7 H (1.3-7.7) k/uL Lymphocytes # 0.6 L (1.0-4.8) k/uL Sodium (137-145) mmol/L Chloride (98-107) mmol/L Carbon Dioxide (22-30) mmol/L BUN (9-20) mg/dL Creatinine (0.66-1.25) mg/dL Glucose (74-99) mg/dL POC Glucose (mg/dL) 189 H 255 H (70-110) mg/dL Calcium (8.4-10.2) mg/dL 04/20/24 04/20/24 04/20/24 Range/Units 05:53 06:23 11:41 WBC (3.8-10.6) k/uL Plt Count (150-450) k/uL Neutrophils # (1.3-7.7) k/uL Lymphocytes # (1.0-4.8) k/uL Sodium 136 L (137-145) mmol/L Chloride 97 L (98-107) mmol/L Carbon Dioxide 37 H (22-30) mmol/L BUN 56 H (9-20) mg/dL Creatinine 1.35 H (0.66-1.25) mg/dL Glucose 115 H (74-99) mg/dL POC Glucose (mg/dL) 145 H 268 H (70-110) mg/dL Calcium 8.2 L (8.4-10.2) mg/dL Assessment and Plan (1) Cellulitis of right lower extremity Current Visit: Yes Status: Acute Code(s): L03.115 - CELLULITIS OF RIGHT LOWE R LIMB SNOMED Code(s): 33865646282142845 (2) Leukocytosis Current Visit: Yes Status: Acute Code(s): D72.829 - ELEVATED WHITE BLOOD CELL COUNT, UNSPECIFIED SNOMED Code(s): 586819064 Plan: 1patient with diffuse swelling redness right lower extremity concerning for cellulitis likely from gram-positive skin alesia and this patient also have a painful sore to the right heel concerning for possible foreign body and may be the source of this cellulitis. 2x-rays of the right foot did shows evidence of foreign body more likely responsible for his pain patient is status post surgical removal of the foreign body as well as deep culture which are currently growing presumptive MRSA 3-patient is afebrile , local culture positive for MRSA, 4-patient still have significant cellulitis as well as swelling to the right lower extremity, patient continue with daptomycin and will benefit from more aggressive diuresis to get the swelling down Dictation was produced using [employer] software. please excuse any grammatical, word or spelling errors. Time with Patient: Less than 30
--- NOTE | 2024-04-21 14:10 | P.PN ---
Subjective Progress Note Date: 04/21/24 Principal diagnosis: Reason for follow-up is a right lower extremity cellulitis and right foot foreign body Patient is a 58-year-old male with a past medical history significant for atrial fibrillation asthma heart failure COPD hypertension hyperlipidemia sleep apnea presented to hospital for evaluation of increasing shortness of breath patient also developed increasing redness to the right leg with pain to the right heel with the x-ray showing evidence of foreign body. On today's evaluation that is 04/21/2024, patient has been afebrile, patient is breathing slightly comfortably and is currently on 3 L nasal cannula oxygen patient denies having any significant cough no chest pain, patient denies nausea vomiting or diarrhea and no abdominal pain patient still complaining of significant swelling to the lower extremity and drainage. No lab draw today Objective - Vital Signs Vital signs: Vital Signs Temp 97.6 F 04/21/24 08:00 Pulse 89 04/21/24 12:00 Resp 20 04/21/24 12:00 BP 156/88 04/21/24 12:00 Pulse Ox 95 04/21/24 12:00 FiO2 50 04/19/24 04:00 Intake & Output 04/20/24 04/21/24 04/21/24 18:59 06:59 18:59 Intake Total 780 1140 Output Total 1800 1000 2300 Balance -1020 -1000 -1160 Weight 160.3 kg Intake: Oral 780 1140 Output: Urine 1800 1000 2300 Other: Voiding Method Urinal Urinal Urinal - Exam GENERAL DESCRIPTION: Middle-age male lying in bed in no distress RESPIRATORY SYSTEM: Unlabored breathing , decreased breath sounds at bases HEART: S1 S2 regular rate and rhythm , ABDOMEN: Soft , no tenderness EXTREMITIES: Right leg is currently dressed with Kerlix did have drainage on the dressing - Labs CBC & Chem 7: 04/20/24 05:53 04/20/24 05:53 Labs: Abnormal Lab Results - Last 24 Hours (Table) 04/20/24 04/20/24 04/21/24 Range/Units 16:20 20:10 06:12 POC Glucose (mg/dL) 164 H 290 H 120 H (70-110) mg/dL 04/21/24 Range/Units 11:19 POC Glucose (mg/dL) 213 H (70-110) mg/dL Assessment and Plan (1) Cellulitis of right lower extremity Current Visit: Yes Status: Acute Code(s): L03.115 - CELLULITIS OF RIGHT LOWER LIMB SNOMED Code(s): 06439739562498907 (2) Leukocytosis Current Visit: Yes Status: Acute Code(s): D72.829 - ELEVATED WHITE BLOOD CELL COUNT, UNSPECIFIED SNOMED Code(s): 258662085 Plan: 1patient with diffuse swelling redness right lower extremity concerning for cellulitis likely from gram-positive skin alesia and this patient also have a painful sore to the right heel concerning for possible foreign body and may be the source of this cellulitis. 2x-rays of the right foot did shows evidence of foreign body more likely responsible for his pain patient is status post surgical removal of the foreign body as well as deep culture which are currently growing presumptive MRSA 3-patient is afebrile , local culture positive for MRSA, 4-patient still have significant cellulitis as well as swelling to the right lower extremity, patient will benefit from more aggressive diuresis and Gonzalez for compression we will continue daptomycin for at least 2 weeks on discharge this was discussed with the BANKING REPRESENTATIVE for admitting team Dictation was produced using [employer] dictation software. please excuse any grammatical, word or spelling errors. Time with Patient: Less than 30
--- NOTE | 2024-04-21 14:23 | P.PN ---
Subjective Progress Note Date: 04/21/24 patient is 58-year-old gentleman past medical history significant for congestive heart failure, atrial fibrillation, hypertension, hyperlipidemia, chronic kidney disease, COPD, and morbid obesity who presented the ER because of generalized debility and increasing weakness. Patient stated that he has been feeling like this for the last few weeks. Patient has been complaining of shortness of breath at rest as on exertion. Patient states that he is unable to get around. Denies any chest pain. There is no complaint of palpitations. Patient also complained of increased shakiness and tremors. Denies any fever or chills. There is no complaint of chest pain. There is no complaint orthopnea or PND. Because of the symptoms, patient presented to the ER Initial lab work done in the ER showed WBC 1.1, hemoglobin 15.6, platelet count 240, INR 1, sodium 133, potassium 5.6, chloride 96, BUN 119, creatinine 2.94 glucose 88, calcium 7.7, magnesium 2.6, bilirubin 1, troponin 0.017, proBNP 13,300 EKG done in the ER showed heart rate of 78, irregular rhythm, no ST segment elevation or depression seen, T-wave inversions seen in leads II, III and aVF. V1 to V4. Chest x-ray done in the ER showed mild bibasilar infiltrates, marked cardiomegaly CT head done showed no acute intracranial process CT cervical spine done showed no evidence of any cervical spine pathology X-ray pelvis does not show any evidence of fracture Patient admitted to internal medicine service 04/06. Patient seen and examined. Currently on BiPAP with a 50% FiO2. He is complaining of being short of breath on exertion. Denies any cough. Currently in A-fib, rate poorly controlled. Currently on Cardizem drip. 04/07. Patient seen and examined. Currently on 4 L of oxygen. Patient is diuresing well. Patient is anxious today. 04/08. Patient seen and examined. Patient underwent JESS with cardioversion today. Currently sinus rhythm. Said breathing has improved. 04/09. Patient seen and examined. Blood work done showed WBC 7.1, hemoglobin 16.7, sodium 136, potassium 3.8, BUN 102, creatinine 1.94. Continues to be tachycardic. Currently on amiodarone drip 04/10. Patient seen and examined. Patient continues to be tachycardic, currently off of IV amiodarone and switch to oral amiodarone patient is complaining of shortness of breath on exertion. 04/11 patient seen and examined. Patient complaining of palpitations. Gets short of breath on exertion. 04/12. Patient seen and examined. Complaining of lethargic. Patient heart rate is better controlled. Still gets short of breath on exertion. 04/13/2024 Patient is seen in follow-up today being followed by cardiology and pulmonary. Vascular surgery and infectious disease consulted as there is concerns of lower extremity cellulitis along with extreme right heel pain which appears to be a foreign body as noted on x-ray in the heel. Patient reports he is unsure if he stepped on something but has been causing increased pain over the last few days. Will start cefazolin and appreciate input and recommendations from infectious disease along with vascular surgery. Patient maintained on IV steroids and will continue for now along with DuoNeb treatments and diuretic therapy. 04/14/2024 Patient is seen and evaluated in follow-up and has been evaluated by vascular surgery along with concerns of possible foreign body in the right heel. Patient is unable to bear weight reporting significant 10/10 pain. Infectious disease also consulted and continued on cefazolin with concerns of bilateral lower extremity cellulitis more so on the right. Patient does have chronic peripheral vascular disease with poor circulation. Vascular surgery to reevaluate that he will and continue with local wound care 04/15/2024 Patient seen and evaluated in follow-up today and is status post deep culture and removal of a piece of glass in the right heel with vascular surgery. Cultures remain pending and patient is continued on cefazolin. Significant discoloration of the lower extremities noted and patient and nursing staff report the middle toe that was debrided continues to bleed and patient has been noncompliant and continuing to weight-bear and not keep the lower extremities elevated while at rest. Also encouraged strong reinforcement of fluid re strictions although patient is noncompliant with this as well and has been rude with staff demanding more water. Patient is afebrile with no reports of chest pain or shortness of breath. Will await cultures and discuss further with infectious disease and vascular surgery regarding discharge planning. 04/16/2024 Patient is evaluated today resting in bed he is essentially lying flat with his right lower extremity elevated. He has significant redness and swelling to this right lower extremity. Dressing is intact he is postoperative removal of glass from the right heel as well as a deep tissue culture. Preliminary cultures are showing presumptive MRSA. He remains on IV daptomycin for this time pending further cultures. He is reporting significant pain to the right lower extremity. Receiving combination of Tylenol 3's with IV morphine. Continues on oral torsemide. Labs today reveal a sodium level of 138, potassium 5.3, BUN of 66, creatinine of 1.46. 95% on 3 L of oxygen. 04/17/2024 Patient is eval today in follow-up on the medical floor. He reports significant pain to his right foot. He is having increased drainage as well as swelling and redness of the right lower extremity. Continues on IV daptomycin with culture showing MRSA. Sodium level was 135, BUN of 63, creatinine of 1.46. He continues on 3 L of oxygen via nasal cannula. 04/18/2024 Patient is evaluated in follow-up. He does continue to report significant pain to his foot. We will take off the Tylenol 3's and start this patient on [place] 5 mg every 6 hours as needed. He has been continued on torsemide 10 mg oral daily however with the increase in swelling to his right lower extremity which is now weeping with bulla we will discuss with nephrology about starting the patient back on IV Lasix. Work today reveals a sodium level of 135, BUN of 54, creatinine of 1.36. 04/19/2024 Patient is seen in follow-up today with multiple consultations following. Patient continues to report severe pain of the right lower extremity with swelling and morphine is not helping at all, will add low-dose Dilaudid and also continue with [place]. Infectious disease following and patient may likely need IV antibiotic therapy. Case management consulted for possible ECF for continued wound care and IV antibiotic therapy on discharge. Patient continues to be noncompliant with fluid restrictions and diet and has been extensively counseled by multiple nursing staff and physicians. Patient does not appear in any respiratory distress and using BiPAP at night along with supplemental oxygen which she chronically wears outpatient. 04/20/2024 Patient is seen in follow-up this morning maintained on IV daptomycin for right lower extremity cellulitis with infectious disease following. Plan is for patient to receive a PICC line and continue with IV antibiotics outpatient. Case management is following working on discharge planning to ECF as patient requires insurance authorization. Currently pending at this time. Patient is afebrile reports some acid reflux and will continue on Protonix and also add Tums as needed. Patient continues to report right foot and leg pain and needs constant reencouragement on elevating the lower extremity and to remain nonweightbearing of that heel. Patient blood sugars have been up and down and will continue current regimen and adjust insulins accordingly. Continue to reinforce strict fluid restrictions. 04/21/2024 Patient is seen in follow-up today with multiple consultations following. Patient will be going to [facility] and has been accepted at [facility] although a waiting insurance authorization. Case management following and has submitted which is currently pending. Patient has received a PICC line and will continue on IV daptomycin for 2 weeks per ID recommendations. Continue local wound care to the lower extremities and elevating right lower extremity while at rest. Continue to enforce fluid restrictions and diet control and will continue current regimen. Patient to follow-up with nephrology, cardiology, pulmonary in the outpatient setting REVIEW OF SYSTEMS: CONSTITUTIONAL: No fever, no malaise,. CARDIOVASCULAR: No chest pain, no palpitations, no syncope. PULMONARY: As mentioned above GASTROINTESTINAL: No diarrhea, no nausea, no vomiting, no abdominal pain. NEUROLOGICAL: No headaches, no weakness, reports of severe right foot pain PHYSICAL EXAMINATION: GENERAL: The patient is alert and oriented x3, not in any acute distress. Well developed, well nourished. Morbidly obese, elderly appearing, ill-appearing HEENT: Pupils are round and equally reacting to light. EOMI. No scleral icterus. No conjunctival pallor. Normocephalic, atraumatic. No pharyngeal erythema. No thyromegaly. CARDIOVASCULAR: S1 and S2 muffled PULMONARY: Diminished breath sound at the bases bilaterally no wheezing or crackles. ABDOMEN: Soft, obese, nontender, nondistended, normoactive bowel sounds. No palpable organomegaly. MUSCULOSKELETAL: No joint swelling or deformity. EXTREMITIES: No cyanosis, clubbing, or pedal edema. Right heel with swelling an d right lower extremity redness and swelling, although appears slightly improved NEUROLOGICAL: Gross neurological examination did not reveal any focal deficits. Diffusely weak SKIN: No rashes. Significant erythema and swelling of the right lower extremity Assessment : Acute on chronic hypoxic respiratory failure secondary to CHF and COPD exacerbation Bilateral lower extremity redness and swelling with concerns of cellulitis, more so on the right Right heel pain secondary to a piece of glass lodged in the heel, status post excision of the glass and deep tissue cultures with vascular surgery. MRSA Acute kidney injury secondary to ATN and cardiorenal syndrome Hyperkalemia, improved post [place] Hyponatremia Acute on chronic congestive heart failure with preserved EF, 60 to 65% Persistent atrial fibrillation, episode of RVR status post JESS with cardioversion on 04/08/2024 Hypertension Hyperlipidemia Chronic kidney disease IIIa COPD Morbid obesity: BMI 48.7 Obstructive sleep apnea, noncompliant with CPAP outpatient GI prophylaxis DVT prophylaxis Full code Plan: Patient to continue on current medications with cardiology and pulmonary following. Status post removal of glass from right heel. Cultures showing presumptive MRSA patient continues on IV daptomycin. Discussed with infectious disease and plan will be to continue IV antibiotics on discharge. PICC line is ordered and pe nding Local wound care to the right great toe with Medihoney gel and there is a right ankle wound with silver dressing applied. These should be changed on a daily basis. Continue to encourage and reinforce elevating lower extremities especially the right while at rest Continue oral prednisone taper Continue sliding scale with Accu-Cheks before meals and at bedtime and will continue long-acting and adjust insulins accordingly Case management following as patient will require insurance authorization to go to [facility]. Patient has been accepted at [facility] pending off. Currently pending at this time with possible discharge in the next 24 hours. He is continued on a 1500 mL fluid restriction and is noncompliant. Due to multiple complex medical issues, overall prognosis is guarded Possible discharge planning in the next 24 hours once cleared by infectious disease The impression and plan of care has been dictated by Shayna Garcia, Nurse Practitioner as directed. Dr. Denisse MD I have performed a history and physical examination and medical decision making of this patient, discussed the same with the dictator, and agree with the dictators assessment and plan as written, documented as a scribe. Based on total visit time, I have performed more than 50% of this visit. Objective - Vital Signs Vital signs: Vital Signs Temp 97.6 F 04/21/24 08:00 Pulse 89 04/21/24 12:00 Resp 20 04/21/24 12:00 BP 156/88 04/21/24 12:00 Pulse Ox 95 04/21/24 12:00 FiO2 50 04/19/24 04:00 Intake & Output 04/20/24 04/21/24 04/21/24 18:59 06:59 18:59 Intake Total 780 960 Output Total 1800 1000 1900 Balance -1020 -1000 -940 Weight 160.3 kg Intake: Oral 780 960 Output: Urine 1800 1000 1900 Other: Voiding Method Urinal Urinal Urinal - Labs CBC & Chem 7: 04/20/24 05:53 04/20/24 05:53 Labs: Abnormal Lab Results - Last 24 Hours (Table) 04/20/24 04/20/24 04/21/24 Range/Units 16:20 20:10 06:12 POC Glucose (mg/dL) 164 H 290 H 120 H (70-110) mg/dL 04/21/24 Range/Units 11:19 POC Glucose (mg/dL) 213 H (70-110) mg/dL
--- NOTE | 2024-04-21 14:55 | P.PN ---
Subjective Progress Note Date: 04/21/24 This is a 58-year-old white male with morbid obesity, chronic diastolic congestive heart failure, chronic obstructive pulmonary disease, chronic kidney disease, familiar to my service from previous admissions, patient presented to the ER with few days history of increased shortness of breath, weakness, ge neralized medical debility. No chest pain, no fever, no chills, no hemoptysis, workup in the ER included CBC that showed WBC count of 7.1 hemoglobin 15.6, abnormal potassium of 5.6 abnormal renal profile with a BUN of 119 creatinine 2.94 and abnormal BNP level of 13,300. On his initial arrival, patient was in moderate respiratory distress he was placed on BiPAP 14/6/50%, when I saw the patient I recommended an ABG that showed a pO2 of 68 pCO2 55 pH of 7.35 and this was on BiPAP. Chest x-ray showed evidence of mild interstitial edema and the patient is now on Lasix 60 mg IV push twice daily. Patient is on bronchodilators he is also on methylprednisolone 60 mg IV push every 6 hours. Progress note dated April 06, 2024. 58-year-old male seen today in room 364. He was seen in consultation yesterday. The patient has a history of chronic diastolic CHF, and chronic obstructive pulmonary disease among other things. Currently he is on 6 L nasal cannula. No IV fluids. He has a BiPAP device in the room, with settings of 14/6, and 50%. Clinically, the patient states that he starting to feel a bit better. His chest x-ray revealed mild interstitial edema. He was placed on Lasix. He is also getting bronchodilators and corticosteroids. Current laboratory data includes a completely normal CBC. Sodium 137, potassium 4.4, chlorides 97, CO2 34, BUN 97, creatinine 1.60. Glucose is 386. Progress note dated April 07, 2024. 58-year-old male seen in room 364. Currently, the patient is not receiving any IV fluids. The patient is currently on 4 L nasal cannula. He is walking around the room. He did use both BiPAP and nasal O2 last night. He used BiPAP for about 4 hours. His settings were 14/6, and 50%. Current labs include a white count 10.6, hemoglobin 16.3, hematocrit 48.2, and a normal platelet count. Sodium 137, potassium 3.8, chlorides 98, CO2 36, BUN 96, creatinine 1.49. Glucose is 210. Progress note dated April 08, 2024. 58-year-old male who is seen today in room 364. The patient was to have a transesophageal echocardiogram, and cardioversion, by cardiology today. He remains on 4 L of oxygen by nasal cannula. According to the nurses, the patient had a relatively uneventful night. Laboratory data includes a sodium 137, potassium 3.8, chlorides 94, CO2 35, BUN 105, creatinine 1.93. Glucose is 242. Calcium 9.4. Progress note dated April 09, 2024. The patient had a transesophageal echocardiogram and cardioversion, yesterday, but unfortunately, he is back in atrial fibrillation. He is seen today in room 364. He is on amiodarone at 0.5 mg/min. He is getting nasal O2 at 3 L by nasal cannula. The patient did spend some time last night on BiPAP, with settings of 14/6, 50%. Current laboratory data includes a white count 7.9, hemoglobin 16.7, hematocrit 52.3, and a platelet count is normal. Sodium 136, potassium 3.8, chlorides 91, CO2 38, BUN 102, and creatinine 1.94. Glucose is 361. Albumin is 4. Progress note dated April 10, 2024. 58-year-old male seen again in room 364. The patient continues on oxygen, at 3 L. In addition, because of ongoing atrial fibrillation and RVR, the patient continues on amiodarone 0.5 mg/min. The patient does have some mild shortness of breath on exertion, no other complaints. He denies any chest pain. Current labs include a sodium 131, potassium 4.5, chlorides 93, CO2 29, BUN 96, and creatinine 1.81. Calcium is 8.8. Glucose is 293. Progress note dated April 11, 2024. 58-year-old male seen in room 364. The patient is sitting on the side of his bed. He is in no acute distress. The patient continues on 3 L nasal cannula. No IV fluids. Yesterday he was on amiodarone drip. That has been turned off. He does use BiPAP at nighttime, with settings of 14/6, and 50%. Current labs with a white count 17.8, hemoglobin 17.1, hematocrit 52.5, and a platelet count of 151,000. Sodium 135, potassium 4.5, chloride 94, CO2 33, BUN 94, creatinine 1.92. Glucose is 290. Progress note dated April 12, 2024. 58-year-old male who is seen today in room 364. The patient remains on O2 at 3 L. He does use BiPAP at nighttime, with settings of 14/6, and 50%. The patient continues in atrial fibrillation. His lungs are clear to auscultation on examination. Labs include sodium 135, potassium 4.9, chlorides 97, CO2 35, BUN 80, creatinine 1.60. Glucose is 229. Calcium is 8.8. 04/13/2024, the patient is on room air oxygen. Awake and alert and communicating. Denies having any significant respiratory difficulties. In terms of diuretics, the patient is on Demadex 10 mg p.o. daily and is also on Aldactone 12.5 mg p.o. daily. He remains on DuoNeb device treatments arou [id number]. He is on Symbicort as maintenance and IV Solu-Medrol 40 mg every 12 hours. The blood work shows a BUN of 76 with a creatinine of 1.4 and sodium is at 136 and a potassium level of 5.5. Serum bicarb is at 32. WBC count at 17.8 with a hemoglobin of 17 and a platelet count of 151. Most recent chest x- ray was from 04/08/2024 and it showed improved CHF. Patient denies having any other new complaints for now. 04/14/2024, the patient's overall respiratory status is stable. The x-ray of the foot was done yesterday and it showed a radiodense lesion in the heel, suggesting a foreign body. Based on that, the patient will have another evaluation with the surgical team. Meanwhile, respite status is stable. The patient is currently on 3 L of oxygen by nasal cannula with a pulse ox of 98%. The patient remains on DuoNeb updrafts. The patient is on Symbicort. The patient is also on a combination of Aldactone and Demadex. He remains on IV Solu-Medrol 40 mg every 12 hours. Blood work shows a BUN of 69 with a creatinine of 1.4 and a sodium level is 137 and a potassium level is 5.6 and a serum bicarb is at 36. The most recent CBC showed a WBC of 17.9 and a hemoglobin of 17.1. The patient remains on IV cefazolin. The patient remains on Levemir insulin 15 units twice daily plus a sliding scale coverage. Denies having any significant complaints otherwise. Ultrasound Doppler of the lower extremity was negative for DVT. On today's evaluation of 04/15/2024, the patient is calm and comfortable without having any major respiratory difficulties. The patient has no respiratory distress. Patient is currently on 3 L of oxygen by nasal cannula with pulse ox of 96%. No cough or sputum production or chest tightness or wheezing. Limited edema lower extremities bilaterally more so on the right. The patient had another surgical evaluation and a piece of glass was removed from his right heel by the surgical team. Cultures from the right lower extremity are still pending and the patient remains on IV cefazolin. Continues to have discoloration of the right lower extremity and the patient is post surgical debridement. Otherwise, rest of the medication remains unchanged. BUN 16 with a creatinine of 1.5 and a creatinine remained stable. Sodium is at 136, potassium is at 4.8, chloride 96 with a bicarb of 39. 04/16/2024, the patient is working with physical therapy. No new complaints. The wound cultures showed MRSA and the patient was started on daptomycin. IV cefazolin has been discontinued. BUN 66 with a creatinine 1.4 and sodium levels at 138 and a potassium level is at 5.3. He is afebrile hemodynamically stable. He remains on 2 L of oxygen by nasal cannula with a pulse ox of 95%. The patient remains on anticoagulation with Eliquis. The patient remains on Demadex 10 mg p.o. daily. Rest of the medication remain unchanged. On a prednisone burst taper starting with 30 mg as part of his best burst taper. 04/17/2024, the patient is being seen for a follow-up. Complaining of generalized bodyaches. No respiratory difficulties. Remains on 3 Suboxone by nasal cannula. Remains on the same diuretic dose and the patient is on Demadex 10 mg p.o. daily. Remains on the same antibiotic coverage which includes IV daptomycin. Sodium levels at 135, BUN 63 with a creatinine of 1.4 and a potassium level is at 4.7. Wound culture was positive for MRSA. No altered mentation. Mobility is limited and the patient is working with outpatient facility physical therapist [employer]. 04/18/2024, no interval change in the patient's overall respiratory status. No new complaints for now. Labs were noted. BUN is at 54 with a creatinine 1.3 and sodium levels at 135. The patient remains on daptomycin. Remains on a combination of Aldactone and torsemide. No new complaints otherwise for now. 04/19/2024, no new complaints. The patient continues to have cellulitis and blistering in his right lower extremity along with MRSA wounds. Remains on daptomycin. No respiratory difficulties for now. Oxygen requirements remain unchanged 3 L/min nasal cannula. Nephrology is also on the case. ID is on the case. Await second 11 labile of 15.20 platelet count of 94. BUN is 56 with a creatinine 1.35. Seen today on 04/20/2024, patient remains on antibiotics for his cellulitis and blistering the right lower extremity with MRSA infection, patient is still on daptomycin, being followed closely by infectious disease. Pulmonary hernandez he seems to be comfortable, does not seem to be in any distress. On 3 L nasal cannula with O2 sats of 94%WBC count is 12.1 hemoglobin is 14.8 basic metabolic profile is normal BUN is 56 creatinine 1.35 bicarb is 37 The patient is seen today April 21, 2024 in follow-up on the selective care unit. He is currently sitting up at the base bedside. Awake and alert in no acute distress. Maintaining good O2 saturations in the mid 90s on 3 L/min per nasal cannula. He denies any worsening shortness of breath, cough or congestion. X-ray continues to show marked cardiomegaly and pulmonary vascular congestion. Right upper extremity PICC line in place. Right foot wound cultures positive for MRSA. Glucose 213. He remains on daptomycin. Continued on DuoNeb ventilations, Symbicort, prednisone. Anticoagulated with Eliquis. Objective - Vital Signs Vital signs: Vital Signs Temp 97.6 F 04/21/24 08:00 Pulse 89 04/21/24 12:00 Resp 20 04/21/24 12:00 BP 156/88 04/21/24 12:00 Pulse Ox 95 04/21/24 12:00 FiO2 50 04/19/24 04:00 Intake & Output 04/20/24 04/21/24 04/21/24 18:59 06:59 18:59 Intake Total 780 1140 Output Total 1800 1000 2300 Balance -1020 -1000 -1160 Weight 160.3 kg Intake: Oral 780 1140 Output: Urine 1800 1000 2300 Other: Voiding Method Urinal Urinal Urinal - Exam GENERAL EXAM: Alert, obese 59-year-old male, on 3 L nasal cannula, comfortable i n no apparent distress. HEAD: Normocephalic. EYES: Normal reaction of pupils, equal size. NOSE: Clear with pink turbinates. THROAT: No erythema or exudates. NECK: No masses, no JVD. CHEST: No chest wall deformity. LUNGS: Equal air entry with no crackles, wheeze, rhonchi or dullness. CVS: S1 and S2 normal with no audible murmur, regular rhythm. ABDOMEN: Obese. No hepatosplenomegaly, normal bowel sounds, no guarding or rigidity. SPINE: No scoliosis or deformity SKIN: No rashes CENTRAL NERVOUS SYSTEM: No focal deficits, tone is normal in all 4 extremities. EXTREMITIES: Dressing to right lower extremity dry and intact. There is no peripheral edema. No clubbing, no cyanosis. Peripheral pulses are intact. - Labs CBC & Chem 7: 04/20/24 05:53 04/20/24 05:53 Labs: Abnormal Lab Results - Last 24 Hours (Table) 04/20/24 04/20/24 04/21/24 Range/Units 16:20 20:10 06:12 POC Glucose (mg/dL) 164 H 290 H 120 H (70-110) mg/dL 04/21/24 Range/Units 11:19 POC Glucose (mg/dL) 213 H (70-110) mg/dL Assessment and Plan Assessment: Acute on chronic hypoxemic, and hypercapnic respiratory failure, secondary to an exacerbation of chronic diastolic congestive heart failure. Chest x-ray showing cardiomegaly, pulmonary vascular congestion, interstitial edema. Very severe chronic obstructive pulmonary disease, with an FEV1 22% of predicted Obstructive sleep apnea, patient is noncompliant with his noninvasive positive airway pressure machine Morbid obesity, with a BMI of 48.7 kg/m Acute on chronic kidney disease Hyperkalemia, secondary to above Atrial fibrillation, anticoagulated with Eliquis Chronic lower extremity edema, with multiple venous stasis ulcers History of hypertension History of hyperlipidemia Former tobacco dependence Severe cellulitis of right lower extremity, positive for MRSA Plan: The patient was seen and evaluated Chest x-ray, labs and medications reviewed Currently stable on 3 L nasal cannula PICC line in place Continued on daptomycin Duration per ID service Plan is for [facility] pending authorization I have personally seen and examined the patient, performed the documentation and the assessment and plan as written. Number of minutes spent on the visit: 10 Dictation was produced using [employer] dictation software. Please excuse any grammatical, word or spelling errors.
[2024-04-21 16:26] LABS: Glucose,Whole Blood 345 mg/dL (70-110)
[2024-04-21 20:05] LABS: Glucose,Whole Blood 313 mg/dL (70-110)
[2024-04-22 06:07] LABS: Glucose,Whole Blood 116 mg/dL (70-110)
[2024-04-22 08:54] LABS: African American GFR (CKD) 69 (>60 ml/min/1.73 sqM); Blood Urea Nitrogen 47 mg/dL (9-20); Calcium 8.1 mg/dL (8.4-10.2); Chloride 96 mmol/L (98-107); Glucose 131 mg/dL (74-99); Magnesium 1.9 mg/dL (1.6-2.3); Non-African American GFR(CKD) 60 (>60 ml/min/1.73 sqM); Potassium 4.8 mmol/L (3.5-5.1); Sodium 137 mmol/L (137-145)
[2024-04-22 09:00] LABS: Anion Gap 4 mmol/L
[2024-04-22 09:11] LABS: Carbon Dioxide 37 mmol/L (22-30)
--- NOTE | 2024-04-22 10:08 | P.PN ---
Subjective Patient is seen in follow-up for acute kidney injury on chronic kidney disease. Renal function stable. On Demadex. Nonoliguric. Vital signs are stable. General: No acute distress. HEENT: Head exam is unremarkable. On 3 L nasal cannula. LUNGS: No audible rhonchi or wheezes. HEART: Rate and Rhythm are regular. ABDOMEN: Obese, no distention. EXTREMITITES: Trace edema. Right lower extremity wrapped. Objective - Vital Signs Vital signs: Vital Signs Temp 97.6 F 04/21/24 20:04 Pulse 77 04/22/24 09:14 Resp 22 04/22/24 09:14 BP 149/93 04/22/24 04:04 Pulse Ox 97 04/22/24 09:14 FiO2 50 04/22/24 09:14 Intake & Output 04/21/24 04/22/24 04/22/24 18:59 06:59 18:59 Intake Total 1320 240 360 Output Total 2300 1575 Balance -980 -1335 360 Weight 161.3 kg Intake: Oral 1320 240 360 Output: Urine 2300 1575 Other: Voiding Method Urinal Urinal # Voids 1 - Labs CBC & Chem 7: 04/20/24 05:53 04/22/24 08:04 Labs: Abnormal Lab Results - Last 24 Hours (Table) 04/21/24 04/21/24 04/21/24 Range/Units 11:19 16:24 20:03 Chloride (98-107) mmol/L Carbon Dioxide (22-30) mmol/L BUN (9-20) mg/dL Creatinine (0.66-1.25) mg/dL Glucose (74-99) mg/dL POC Glucose (mg/dL) 213 H 345 H 313 H (70-110) mg/dL Calcium (8.4-10.2) mg/dL 04/22/24 04/22/24 Range/Units 06:06 08:04 Chloride 96 L (98-107) mmol/L Carbon Dioxide 37 H (22-30) mmol/L BUN 47 H (9-20) mg/dL Creatinine 1.28 H (0.66-1.25) mg/dL Glucose 131 H (74-99) mg/dL POC Glucose (mg/dL) 116 H (70-110) mg/dL Calcium 8.1 L (8.4-10.2) mg/dL Assessment and Plan Assessment: Acute kidney injury secondary to ATN secondary to cardiorenal syndrome. No hydronephrosis noted on kidney ultrasound done in December 2023. Creatinine 2.9 on admission and is stable at 1.28 today. Renal fx had worsened due to hemodynamic instability/afib w/rvr. S/p JESS with cardioversion 04/08/24. UA benign. Hypervolemic hyponatremia. Improved. Chronic kidney disease stage IIIa with baseline creatinine 1.2-1.4 secondary to nephrosclerosis. Volume overload. Improved with diuresis. Hyperphosphatemia secondary to acute kidney injury. Phosphorus level 7.0 dated April 05, 2024 and 3.1 on 04/07/24. Resolved Morbid obesity. Acute hypoxic respiratory failure. Improved. Acute on chronic diastolic CHF Lower extremity cellulitis on antibiotics. Plan: Maintain torsemide 10 mg once daily. Farxiga held due to acute infection in the lower extremities. Can be resumed upon discharge once infection resolves. Low-salt diet and 1500 cc fluid restriction. Continue to monitor renal function and urine output. Repeat BMP and magnesium level 2 to 3 days postdischarge. Follow-up outpatient 1 week postdischarge.
[2024-04-22 10:10] VITALS: BMI 48.2
[2024-04-22 11:41] LABS: Glucose,Whole Blood 238 mg/dL (70-110)
[2024-04-22] MEDS: HYDROmorphone 1 MG/ML 1 ML SYRINGE IVP STA (12:07)
--- NOTE | 2024-04-22 13:17 | P.DS ---
Providers Date of admission: 04/04/24 20:37 Expected date of discharge: 04/22/24 Attending physician: Rashaad Peres Consults: 04/04/24 20:37 Consult Physician Routine Consulting Provider: Wali Garcia Consult Reason/Comments: brenna Do you want consulting provider notified?: Yes Consult Physician Routine Consulting Provider: Sita Waterman Consult Reason/Comments: copd Do you want consulting provider notified?: Yes 04/13/24 14:47 Consult Physician Urgent Consulting Provider: Ignacio Matta Consult Reason/Comments: right heel wound? Do you want consulting provider notified?: Yes 04/13/24 14:48 Consult Physician Routine Consulting Provider: Kamryn Galeana Consult Reason/Comments: right heel? foreign object, foot infection? Do you want consulting provider notified?: Yes Primary care physician: Parish Iverson [facility] Course: Final diagnosis Acute on chronic hypoxic respiratory failure secondary to CHF and COPD exacerbation Bilateral lower extremity redness and swelling with concerns of cellulitis, more so on the right Right heel pain secondary to a piece of glass lodged in the heel, status post excision of the glass and deep tissue cultures with vascular surgery. MRSA Acute kidney injury secondary to ATN and cardiorenal syndrome Hyperkalemia, improved post Lokelma Hyponatremia Acute on chronic congestive heart failure with preserved EF, 60 to 65% Persistent atrial fibrillation, episode of RVR status post JESS with cardioversion on 04/08/2024 Hypertension Hyperlipidemia Chronic kidney disease IIIa COPD Morbid obesity: BMI 48.7 Obstructive sleep apnea, noncompliant with CPAP outpatient GI prophylaxis DVT prophylaxis Full code Discharge disposition Patient is being discharged in a stable condition with guarded prognosis to [facility]. Patient will follow-up with Dr. Iverson in the outpatient setting upon discharge. Patient is to continue with a PICC line and IV antibiotics in the form of daptomycin daily per ID recommendations for the next 2 weeks. Recommend follow-up with Dr. Galeana in the clinic in 1 week to 10 days as scheduled. Patient should also follow-up with pulmonary, cardiology, nephrology outpatient. Total time taken is greater than 35 minutes. Hospital course This is a 59-year-old male who was recently admitted with CHF along with COPD exacerbation and also having some right lower extremity swelling and initially had right heel pain. Patient was evaluated by vascular surgery and was noted to have a piece of glass in the right heel which was extracted and also concerns for surrounding cellulitis of the right lower extremity and was evaluated by infectious disease. Cultures have finalized showing MRSA in the wound and is maintained on IV antibiotics. Patient did have a bullae over the right colon wh ich has been extracted and evaluated by infectious disease and recommend Aquacel silver along with a nonadherent and ABD pad and Gonzalez wrap from the right toes up to the knee on the lower extremity. Patient has been encouraged and instructed to continue to elevate lower extremities while at rest. Patient is noncompliant with fluid restrictions needs to be monitored closely as he has been told by [facility] physicians to monitor his intake. Patient does have significant CHF and COPD and is noncompliant in the outpatient setting. Patient also with BiPAP at night and continues on chronic nasal cannula during the day. Patient has been cleared by consultations for outpatient follow-up. Please refer to other consultation notes for further HPI. Currently no reports of chest pain, shortness of breath, or palpitations. Patient is afebrile. No reports of nausea or vomiting and patient is tolerating diet. Patient will be going to [facility] today. Guarded prognosis and high risk for readmissions given patient's significant comorbidities and noncompliance. Physical exam: Gen: This is a 59-year-old male who is awake, alert and oriented x 3, well- developed, elderly appearing, morbidly obese HEENT: Head is atraumatic, normocephalic. Pupils equal, round. Sclerae is anicteric. NECK: Supple. No JVD. No lymphadenopathy. No thyromegaly. LUNGS: Diminished breath sounds bilaterally with coarse scattered rhonchi. No intercostal retractions. HEART: S1, S2 are muffled ABDOMEN: Soft. Obese, protuberant bowel sounds are present. No masses. No tenderness. EXTREMITIES: No pedal edema. No calf tenderness. Generalized edema noted bilaterally, more so on the right with continued redness underneath the knee along the entire colon and some of the right foot. NEUROLOGICAL: Patient is awake, alert and oriented x3. Cranial nerves 2 through 12 are grossly intact. Diffusely weak Please refer to medication reconciliation sheet for a list of medications. The impression and plan of care has been dictated by Shayna Garcia, Nurse Practitioner as directed. Dr. Denisse MD I have performed a history and examination and MDM of this patient, discussed the same with the dictator, and agree with the dictator's assessment and plan as written ,documented as a scribe. Based on total visit time, I have performed more than 50% of the visit. Patient Condition at Discharge: Fair Plan - Discharge Summary Discharge Rx Participant: Yes New Discharge Prescriptions: New Amiodarone [Cordarone] 400 mg PO BID tab Torsemide [Demadex] 10 mg PO DAILY tab Metoprolol Tartrate [Lopressor] 150 mg PO BID tab HYDROcodone/APAP 7.5-325MG [Morris 7.5-325] 1 each PO Q6HR PRN #6 tab PRN Reason: Moderate Pain (Scale 4 To 6) INSULIN ASPART (NovoLOG) [NovoLOG (formulary)] 0 unit SQ ACHS each ALPRAZolam [Xanax] 0.25 mg PO TID #6 tab Spironolactone [Aldactone] 12.5 mg PO DAILY tab diphenhydrAMINE [Benadryl] 25 mg PO BID PRN cap PRN Reason: Itching DAPTOmycin [Cubicin] 450 mg IVPB Q24HR 14 Days #14 each Ipratropium-Albuterol Nebulize [Duoneb 0.5 mg-3 mg/3 ml Soln] 3 ml INHALATION RT-QID each Ipratropium-Albuterol Nebulize [Duoneb 0.5 mg-3 mg/3 ml Soln] 3 ml INHALATION RT-Q2H PRN each PRN Reason: Shortness Of Breath Or Wheezing Insulin Detemir (Levemir) [Levemir] 15 unit SQ BID@0700,2100 each predniSONE See Taper PO DIRECTED #30 tab Pantoprazole [Protonix] 40 mg PO AC-BID tab SILVER sulfADIAZINE CREAM [Silvadene Cream] 1 applic TOPICAL DAILY each Budesonide-Formot 160-4.5 Mcg [Symbicort 160-4.5 Mcg Inhaler] 2 puff INHALATION RT-BID each Calcium Carbonate [Tums] 1,000 mg PO QID PRN tab PRN Reason: Heartburn Continue hydrOXYzine pamoate [Vistaril] 50 mg PO HS PRN PRN Reason: ANXIETY/INSOMNIA Dapagliflozin Propanediol [Farxiga] 10 mg PO DAILY 30 Days #30 tab traMADol HCl [Ultram] 50 mg PO Q6H PRN #4 tab PRN Reason: Pain Atorvastatin [Lipitor] 10 mg PO DAILY busPIRone HCl [Buspar] 5 mg PO TID 30 Days #90 tab Apixaban [Eliquis] 5 mg PO BID Finasteride [Proscar] 5 mg PO DAILY QUEtiapine [SEROquel] 50 mg PO HS Sertraline [Zoloft] 50 mg PO DAILY Albuterol Sulfate [Ventolin HFA] 1 puff INHALATION RT-BID Changed Pregabalin [Lyrica] 150 mg PO BID #6 cap Discontinued Metoprolol Succinate (ER) [Toprol XL] 100 mg PO DAILY 30 Days #30 tab Spironolactone [Aldactone] 25 mg PO DAILY dilTIAZem HCL [dilTIAZem HCL 24Hr ER (CD)] 120 mg PO DAILY Cephalexin [Keflex] 500 mg PO Q12HR Losartan [Cozaar] 25 mg PO HS Famotidine [Pepcid] 20 mg PO BID #60 tab Furosemide [Lasix] 40 mg PO DAILY Acetaminophen-Codeine 300-30mg [Tylenol w/codeine #3] 1 tab PO Q6H PRN PRN Reason: Pain Discharge Medication List hydrOXYzine pamoate [Vistaril] 50 mg PO HS PRN 07/09/22 [History] Atorvastatin [Lipitor] 10 mg PO DAILY 08/01/22 [History] Dapagliflozin Propanediol [Farxiga] 10 mg PO DAILY 30 Days #30 tab 09/10/22 [Rx] busPIRone HCl [Buspar] 5 mg PO TID 30 Days #90 tab 09/10/22 [Rx] Apixaban [Eliquis] 5 mg PO BID 12/12/23 [History] Finasteride [Proscar] 5 mg PO DAILY 12/12/23 [History] QUEtiapine [SEROquel] 50 mg PO HS 12/12/23 [History] Sertraline [Zoloft] 50 mg PO DAILY 12/12/23 [History] Albuterol Sulfate [Ventolin HFA] 1 puff INHALATION RT-BID 04/04/24 [History] ALPRAZolam [Xanax] 0.25 mg PO TID #6 tab 04/22/24 [Rx] Amiodarone [Cordarone] 400 mg PO BID tab 04/22/24 [Rx] Budesonide-Formot 160-4.5 Mcg [Symbicort 160-4.5 Mcg Inhaler] 2 puff INHALATION RT-BID each 04/22/24 [Rx] Calcium Carbonate [Tums] 1,000 mg PO QID PRN tab 04/22/24 [Rx] DAPTOmycin [Cubicin] 450 mg IVPB Q24HR 14 Days #14 each 04/22/24 [Rx] HYDROcodone/APAP 7.5-325MG [Morris 7.5-325] 1 each PO Q6HR PRN #6 tab 04/22/24 [Rx] INSULIN ASPART (NovoLOG) [NovoLOG (formulary)] 0 unit SQ ACHS each 04/22/24 [Rx] Insulin Detemir (Levemir) [Levemir] 15 unit SQ BID@0700,2100 each 04/22/24 [Rx] Ipratropium-Albuterol Nebulize [Duoneb 0.5 mg-3 mg/3 ml Soln] 3 ml INHALATION RT-Q2H PRN each 04/22/24 [Rx] Ipratropium-Albuterol Nebulize [Duoneb 0.5 mg-3 mg/3 ml Soln] 3 ml INHALATION RT-QID each 04/22/24 [Rx] Metoprolol Tartrate [Lopressor] 150 mg PO BID tab 04/22/24 [Rx] Pantoprazole [Protonix] 40 mg PO AC-BID tab 04/22/24 [Rx] Pregabalin [Lyrica] 150 mg PO BID #6 cap 04/22/24 [Rx] SILVER sulfADIAZINE CREAM [Silvadene Cream] 1 applic TOPICAL DAILY each [Rx] Spironolactone [Aldactone] 12.5 mg PO DAILY tab 04/22/24 [Rx] Torsemide [Demadex] 10 mg PO DAILY tab 04/22/24 [Rx] diphenhydrAMINE [Benadryl] 25 mg PO BID PRN cap 04/22/24 [Rx] predniSONE See Taper PO DIRECTED #30 tab 04/22/24 [Rx] traMADol HCl [Ultram] 50 mg PO Q6H PRN #4 tab 04/22/24 [Rx] Follow up Appointment(s)/Referral(s): Parish Iverson MD [Primary Care Provider] - 1-2 days [facility], [NON-STAFF] - Kamryn Galeana MD [STAFF PHYSICIAN] - 1 Week Mark Maciel DO [Doctor of Osteopathic Medicine] - 1 Week Wali Garcia DO [STAFF PHYSICIAN] - 1 Week Jason Randolph MD [Medical Doctor] - 1 Week Activity/Diet/Wound Care/Special Instructions: Patient is going to [facility] as tolerated Patient is to continue to elevate lower extremities especially the right lower extremity at all times while at rest and awake Continue local wound care by applying dry silver to the right lower extremity a long with an ABD pad and then Gonzalez wrap from the toes up to the knee Continue on IV antibiotics with a PICC line per ID recommendations for minimum 2 weeks Follow-up with infectious disease outpatient in 1 week Follow-up pulmonary outpatient Follow-up cardiology outpatient Continue heart healthy diabetic diet Continue fluid restriction of 1500 mL daily Follow-up with nephrology outpatient Patient uses BiPAP at night (Bipap at hs 14/6 50% FIO2) Discharge Disposition: TRANSFER TO SNF/ECF
--- NOTE | 2024-04-22 14:39 | P.PN ---
Subjective Progress Note Date: 04/22/24 This is a 58-year-old white male with morbid obesity, chronic diastolic congestive heart failure, chronic obstructive pulmonary disease, chronic kidney disease, familiar to my service from previous admissions, patient presented to the ER with few days history of increased shortness of breath, weakness, ge neralized medical debility. No chest pain, no fever, no chills, no hemoptysis, workup in the ER included CBC that showed WBC count of 7.1 hemoglobin 15.6, abnormal potassium of 5.6 abnormal renal profile with a BUN of 119 creatinine 2.94 and abnormal BNP level of 13,300. On his initial arrival, patient was in moderate respiratory distress he was placed on BiPAP 14/6/50%, when I saw the patient I recommended an ABG that showed a pO2 of 68 pCO2 55 pH of 7.35 and this was on BiPAP. Chest x-ray showed evidence of mild interstitial edema and the patient is now on Lasix 60 mg IV push twice daily. Patient is on bronchodilators he is also on methylprednisolone 60 mg IV push every 6 hours. Progress note dated April 06, 2024. 58-year-old male seen today in room 364. He was seen in consultation yesterday. The patient has a history of chronic diastolic CHF, and chronic obstructive pulmonary disease among other things. Currently he is on 6 L nasal cannula. No IV fluids. He has a BiPAP device in the room, with settings of 14/6, and 50%. Clinically, the patient states that he starting to feel a bit better. His chest x-ray revealed mild interstitial edema. He was placed on Lasix. He is also getting bronchodilators and corticosteroids. Current laboratory data includes a completely normal CBC. Sodium 137, potassium 4.4, chlorides 97, CO2 34, BUN 97, creatinine 1.60. Glucose is 386. Progress note dated April 07, 2024. 58-year-old male seen in room 364. Currently, the patient is not receiving any IV fluids. The patient is currently on 4 L nasal cannula. He is walking around the room. He did use both BiPAP and nasal O2 last night. He used BiPAP for about 4 hours. His settings were 14/6, and 50%. Current labs include a white count 10.6, hemoglobin 16.3, hematocrit 48.2, and a normal platelet count. Sodium 137, potassium 3.8, chlorides 98, CO2 36, BUN 96, creatinine 1.49. Glucose is 210. Progress note dated April 08, 2024. 58-year-old male who is seen today in room 364. The patient was to have a transesophageal echocardiogram, and cardioversion, by cardiology today. He remains on 4 L of oxygen by nasal cannula. According to the nurses, the patient had a relatively uneventful night. Laboratory data includes a sodium 137, potassium 3.8, chlorides 94, CO2 35, BUN 105, creatinine 1.93. Glucose is 242. Calcium 9.4. Progress note dated April 09, 2024. The patient had a transesophageal echocardiogram and cardioversion, yesterday, but unfortunately, he is back in atrial fibrillation. He is seen today in room 364. He is on amiodarone at 0.5 mg/min. He is getting nasal O2 at 3 L by nasal cannula. The patient did spend some time last night on BiPAP, with settings of 14/6, 50%. Current laboratory data includes a white count 7.9, hemoglobin 16.7, hematocrit 52.3, and a platelet count is normal. Sodium 136, potassium 3.8, chlorides 91, CO2 38, BUN 102, and creatinine 1.94. Glucose is 361. Albumin is 4. Progress note dated April 10, 2024. 58-year-old male seen again in room 364. The patient continues on oxygen, at 3 L. In addition, because of ongoing atrial fibrillation and RVR, the patient continues on amiodarone 0.5 mg/min. The patient does have some mild shortness of breath on exertion, no other complaints. He denies any chest pain. Current labs include a sodium 131, potassium 4.5, chlorides 93, CO2 29, BUN 96, and creatinine 1.81. Calcium is 8.8. Glucose is 293. Progress note dated April 11, 2024. 58-year-old male seen in room 364. The patient is sitting on the side of his bed. He is in no acute distress. The patient continues on 3 L nasal cannula. No IV fluids. Yesterday he was on amiodarone drip. That has been turned off. He does use BiPAP at nighttime, with settings of 14/6, and 50%. Current labs with a white count 17.8, hemoglobin 17.1, hematocrit 52.5, and a platelet count of 151,000. Sodium 135, potassium 4.5, chloride 94, CO2 33, BUN 94, creatinine 1.92. Glucose is 290. Progress note dated April 12, 2024. 58-year-old male who is seen today in room 364. The patient remains on O2 at 3 L. He does use BiPAP at nighttime, with settings of 14/6, and 50%. The patient continues in atrial fibrillation. His lungs are clear to auscultation on examination. Labs include sodium 135, potassium 4.9, chlorides 97, CO2 35, BUN 80, creatinine 1.60. Glucose is 229. Calcium is 8.8. 04/13/2024, the patient is on room air oxygen. Awake and alert and communicating. Denies having any significant respiratory difficulties. In terms of diuretics, the patient is on Demadex 10 mg p.o. daily and is also on Aldactone 12.5 mg p.o. daily. He remains on DuoNeb device treatments arou [id number]. He is on Symbicort as maintenance and IV Solu-Medrol 40 mg every 12 hours. The blood work shows a BUN of 76 with a creatinine of 1.4 and sodium is at 136 and a potassium level of 5.5. Serum bicarb is at 32. WBC count at 17.8 with a hemoglobin of 17 and a platelet count of 151. Most recent chest x- ray was from 04/08/2024 and it showed improved CHF. Patient denies having any other new complaints for now. 04/14/2024, the patient's overall respiratory status is stable. The x-ray of the foot was done yesterday and it showed a radiodense lesion in the heel, suggesting a foreign body. Based on that, the patient will have another evaluation with the surgical team. Meanwhile, respite status is stable. The patient is currently on 3 L of oxygen by nasal cannula with a pulse ox of 98%. The patient remains on DuoNeb updrafts. The patient is on Symbicort. The patient is also on a combination of Aldactone and Demadex. He remains on IV Solu-Medrol 40 mg every 12 hours. Blood work shows a BUN of 69 with a creatinine of 1.4 and a sodium level is 137 and a potassium level is 5.6 and a serum bicarb is at 36. The most recent CBC showed a WBC of 17.9 and a hemoglobin of 17.1. The patient remains on IV cefazolin. The patient remains on Levemir insulin 15 units twice daily plus a sliding scale coverage. Denies having any significant complaints otherwise. Ultrasound Doppler of the lower extremity was negative for DVT. On today's evaluation of 04/15/2024, the patient is calm and comfortable without having any major respiratory difficulties. The patient has no respiratory distress. Patient is currently on 3 L of oxygen by nasal cannula with pulse ox of 96%. No cough or sputum production or chest tightness or wheezing. Limited edema lower extremities bilaterally more so on the right. The patient had another surgical evaluation and a piece of glass was removed from his right heel by the surgical team. Cultures from the right lower extremity are still pending and the patient remains on IV cefazolin. Continues to have discoloration of the right lower extremity and the patient is post surgical debridement. Otherwise, rest of the medication remains unchanged. BUN 16 with a creatinine of 1.5 and a creatinine remained stable. Sodium is at 136, potassium is at 4.8, chloride 96 with a bicarb of 39. 04/16/2024, the patient is working with physical therapy. No new complaints. The wound cultures showed MRSA and the patient was started on daptomycin. IV cefazolin has been discontinued. BUN 66 with a creatinine 1.4 and sodium levels at 138 and a potassium level is at 5.3. He is afebrile hemodynamically stable. He remains on 2 L of oxygen by nasal cannula with a pulse ox of 95%. The patient remains on anticoagulation with Eliquis. The patient remains on Demadex 10 mg p.o. daily. Rest of the medication remain unchanged. On a prednisone burst taper starting with 30 mg as part of his best burst taper. 04/17/2024, the patient is being seen for a follow-up. Complaining of generalized bodyaches. No respiratory difficulties. Remains on 3 Suboxone by nasal cannula. Remains on the same diuretic dose and the patient is on Demadex 10 mg p.o. daily. Remains on the same antibiotic coverage which includes IV daptomycin. Sodium levels at 135, BUN 63 with a creatinine of 1.4 and a potassium level is at 4.7. Wound culture was positive for MRSA. No altered mentation. Mobility is limited and the patient is working with outpatient facility physical therapist [employer]. 04/18/2024, no interval change in the patient's overall respiratory status. No new complaints for now. Labs were noted. BUN is at 54 with a creatinine 1.3 and sodium levels at 135. The patient remains on daptomycin. Remains on a combination of Aldactone and torsemide. No new complaints otherwise for now. 04/19/2024, no new complaints. The patient continues to have cellulitis and blistering in his right lower extremity along with MRSA wounds. Remains on daptomycin. No respiratory difficulties for now. Oxygen requirements remain unchanged 3 L/min nasal cannula. Nephrology is also on the case. ID is on the case. Await second 11 labile of 15.20 platelet count of 94. BUN is 56 with a creatinine 1.35. Seen today on 04/20/2024, patient remains on antibiotics for his cellulitis and blistering the right lower extremity with MRSA infection, patient is still on daptomycin, being followed closely by infectious disease. Pulmonary hernandez he seems to be comfortable, does not seem to be in any distress. On 3 L nasal cannula with O2 sats of 94%WBC count is 12.1 hemoglobin is 14.8 basic metabolic profile is normal BUN is 56 creatinine 1.35 bicarb is 37 The patient is seen today April 21, 2024 in follow-up on the selective care unit. He is currently sitting up at the base bedside. Awake and alert in no acute distress. Maintaining good O2 saturations in the mid 90s on 3 L/min per nasal cannula. He denies any worsening shortness of breath, cough or congestion. X-ray continues to show marked cardiomegaly and pulmonary vascular congestion. Right upper extremity PICC line in place. Right foot wound cultures positive for MRSA. Glucose 213. He remains on daptomycin. Continued on DuoNeb ventilations, Symbicort, prednisone. Anticoagulated with Eliquis. The patient is seen today April 22, 2024 in follow-up on the selective care unit. He is awake and alert in no acute distress. He denies any shortness of breath, cough or congestion. No fever or chills. He is maintaining good O2 saturations in the 90s on 2 L/min per nasal cannula. Has been afebrile. Hemodynamically stable. Sodium 137. Potassium 4.8. Bicarb 37. BUN 47. Creatinine 1.28. Glucose 131. Continued on DuoNeb ventilations, Symbicort, prednisone. Anticoagulated with Eliquis. He remains on daptomycin. Objective - Vital Signs Vital signs: Vital Signs Temp 97.7 F 04/22/24 08:00 Pulse 101 H 04/22/24 14:00 Resp 22 04/22/24 14:00 BP 141/90 04/22/24 12:00 Pulse Ox 96 04/22/24 12:00 FiO2 50 04/22/24 09:14 Intake & Output 04/21/24 04/22/24 04/22/24 18:59 06:59 18:59 Intake Total 1320 240 390 Output Total 2300 1575 Balance -980 -1335 390 Weight 161.3 kg 161.3 kg Intake: IV 30 Invasive Line 8 20 Invasive Line 9 10 Oral 1320 240 360 Output: Urine 2300 1575 Other: Voiding Method Urinal Urinal Urinal # Voids 1 - Exam GENERAL EXAM: Alert, morbidly obese 59-year-old male, sitting at the bedside, on 3 L nasal cannula, in no apparent distress. HEAD: Normocephalic. EYES: Normal reaction of pupils, equal size. NOSE: Clear with pink turbinates. THROAT: No erythema or exudates. NECK: No masses, no JVD. CHEST: No chest wall deformity. LUNGS: Equal air entry with no crackles, wheeze, rhonchi or dullness. CVS: S1 and S2 normal with no audible murmur, regular rhythm. ABDOMEN: Obese. No hepatosplenomegaly, normal bowel sounds, no guarding or rigidity. SPINE: No scoliosis or deformity SKIN: No rashes CENTRAL NERVOUS SYSTEM: No focal deficits, tone is normal in all 4 extremities. EXTREMITIES: PICC line in place. Dressing to right lower extremity dry and intact. There is no peripheral edema. No clubbing, no cyanosis. Peripheral pulses are intact. - Labs CBC & Chem 7: 04/20/24 05:53 04/22/24 08:04 Labs: Abnormal Lab Results - Last 24 Hours (Table) 04/21/24 04/21/24 04/22/24 Range/Units 16:24 20:03 06:06 Chloride (98-107) mmol/L Carbon Dioxide (22-30) mmol/L BUN (9-20) mg/dL Creatinine (0.66-1.25) mg/dL Glucose (74-99) mg/dL POC Glucose (mg/dL) 345 H 313 H 116 H (70-110) mg/dL Calcium (8.4-10.2) mg/dL 04/22/24 04/22/24 Range/Units 08:04 11:39 Chloride 96 L (98-107) mmol/L Carbon Dioxide 37 H (22-30) mmol/L BUN 47 H (9-20) mg/dL Creatinine 1.28 H (0.66-1.25) mg/dL Glucose 131 H (74-99) mg/dL POC Glucose (mg/dL) 238 H (70-110) mg/dL Calcium 8.1 L (8.4-10.2) mg/dL Assessment and Plan Assessment: Acute on chronic hypoxemic, and hypercapnic respiratory failure, secondary to an exacerbation of chronic diastolic congestive heart failure. Chest x-ray showing cardiomegaly, pulmonary vascular congestion, interstitial edema. Very severe chronic obstructive pulmonary disease, with an FEV1 22% of predicted Obstructive sleep apnea, patient is noncompliant with his noninvasive positive airway pressure machine Morbid obesity, with a BMI of 48.7 kg/m Acute on chronic kidney disease Hyperkalemia, secondary to above Atrial fibrillation, anticoagulated with Eliquis Chronic lower extremity edema, with multiple venous stasis ulcers History of hypertension History of hyperlipidemia Former tobacco dependence Severe cellulitis of right lower extremity, positive for MRSA, remains on daptomycin Plan: The patient was seen and evaluated Labs and medications reviewed Currently stable on 3 L nasal cannula Continued on daptomycin, duration per ID service Discharge to [facility] pending insurance I have personally seen and examined the patient, performed the documentation and the assessment and plan as written. Number of minutes spent on the visit: 10 Dictation was produced using [employer] dictation software. Please excuse any grammatical, word or spelling errors.
[2024-04-22 16:32] LABS: Glucose,Whole Blood 271 mg/dL (70-110)
[2024-04-22 19:57] LABS: Glucose,Whole Blood 288 mg/dL (70-110)
[2024-04-23 06:02] LABS: Glucose,Whole Blood 127 mg/dL (70-110)
[2024-04-23 08:30] VITALS: RESP 20
--- NOTE | 2024-04-23 08:59 | P.PN ---
Subjective Progress Note Date: 04/22/24 Principal diagnosis: Reason for follow-up is a right lower extremity cellulitis and right foot foreign body Patient is a 58-year-old male with a past medical history significant for atrial fibrillation asthma heart failure COPD hypertension hyperlipidemia sleep apnea presented to hospital for evaluation of increasing shortness of breath patient also developed increasing redness to the right leg with pain to the right heel with the x-ray showing evidence of foreign body. On today's evaluation that is 04/22/2024, Patient is afebrile this morning patient denies having any chest pain has been complaining of shortness of breath but no significant cough, the patient is currently on room air, patient denies any abdominal pain no diarrhea no nausea no vomiting still complaining of pain and swelling to the right lower extremity. Patient did have a creatinine 1.28 Objective - Vital Signs Vital signs: Vital Signs Temp 97.7 F 04/22/24 08:00 Pulse 101 H 04/22/24 12:00 Resp 20 04/22/24 12:00 BP 141/90 04/22/24 12:00 Pulse Ox 96 04/22/24 12:00 FiO2 50 04/22/24 09:14 Intake & Output 04/21/24 04/22/24 04/22/24 18:59 06:59 18:59 Intake Total 1320 240 380 Output Total 2300 1575 Balance -980 -1335 380 Weight 161.3 kg 161.3 kg Intake: IV 20 Invasive Line 8 10 Invasive Line 9 10 Oral 1320 240 360 Output: Urine 2300 1575 Other: Voiding Method Urinal Urinal Urinal # Voids 1 - Exam GENERAL DESCRIPTION: Middle-age male lying in bed in no distress RESPIRATORY SYSTEM: Unlabored breathing , decreased breath sounds at bases HEART: S1 S2 regular rate and rhythm , ABDOMEN: Soft , no tenderness EXTREMITIES: Right leg wound has been cleared of all the skin with gentle rub with a gauze overall wound base looks clean with surrounding redness - Labs CBC & Chem 7: 04/20/24 05:53 04/22/24 08:04 Labs: Abnormal Lab Results - Last 24 Hours (Table) 04/21/24 04/21/24 04/22/24 Range/Units 16:24 20:03 06:06 Chloride (98-107) mmol/L Carbon Dioxide (22-30) mmol/L BUN (9-20) mg/dL Creatinine (0.66-1.25) mg/dL Glucose (74-99) mg/dL POC Glucose (mg/dL) 345 H 313 H 116 H (70-110) mg/dL Calcium (8.4-10.2) mg/dL 04/22/24 04/22/24 Range/Units 08:04 11:39 Chloride 96 L (98-107) mmol/L Carbon Dioxide 37 H (22-30) mmol/L BUN 47 H (9-20) mg/dL Creatinine 1.28 H (0.66-1.25) mg/dL Glucose 131 H (74-99) mg/dL POC Glucose (mg/dL) 238 H (70-110) mg/dL Calcium 8.1 L (8.4-10.2) mg/dL Assessment and Plan (1) Cellulitis of right lower extremity Current Visit: Yes Status: Acute Code(s): L03.115 - CELLULITIS OF RIGHT LOWER LIMB SNOMED Code(s): 67460356657516711 (2) Leukocytosis Current Visit: Yes Status: Acute Code(s): D72.829 - ELEVATED WHITE BLOOD CELL COUNT, UNSPECIFIED SNOMED Code(s): 231492939 Plan: 1patient with diffuse swelling redness right lower extremity concerning for cellulitis likely from gram-positive skin alesia and this patient also have a painful sore to the right heel concerning for possible foreign body and may be the source of this cellulitis. 2x-rays of the right foot did shows evidence of foreign body more likely responsible for his pain patient is status post surgical removal of the foreign body as well as deep culture which are currently growing presumptive MRSA 3-patient is afebrile , local culture positive for MRSA, 4-patient will care has been discussed with the nursing staff to apply dry Aquacel silver dressing ABD and then an Gonzalez wrap continue with the daptomycin x 2 weeks on discharge giving well extensive cellulitis, this was discussed with the SENIOR UI UX DESIGNER for admitting team Dictation was produced using [employer] dictation software. please excuse any grammatical, word or spelling errors. Time with Patient: Less than 30
[2024-04-23 10:48] VITALS: BP 110/76; PULSE 80; TEMP 97.4
--- NOTE | 2024-04-23 11:11 | P.PN ---
Subjective Patient is seen in follow-up for acute kidney injury on chronic kidney disease. Renal function stable as of yesterday. On Demadex. Nonoliguric. Vital signs are stable. General: No acute distress. HEENT: Head exam is unremarkable. On 3 L nasal cannula. LUNGS: No audible rhonchi or wheezes. HEART: Rate and Rhythm are regular. ABDOMEN: Obese, no distention. EXTREMITITES: Trace edema. Right lower extremity wrapped. Objective - Vital Signs Vital signs: Vital Signs Temp 97.4 F L 04/23/24 08:00 Pulse 88 04/23/24 08:38 Resp 20 04/23/24 08:38 BP 110/76 04/23/24 08:00 Pulse Ox 96 04/23/24 08:29 FiO2 50 04/22/24 09:14 Intake & Output 04/22/24 04/23/24 04/23/24 18:59 06:59 18:59 Intake Total 750 757 10 Output Total 1500 Balance 750 -743 10 Weight 161.3 kg 161.1 kg Intake: IV 30 20 10 Invasive Line 8 20 20 10 Invasive Line 9 10 Oral 720 737 Output: Urine 1500 Other: Voiding Method Urinal Urinal Urinal # Voids 3 - Labs CBC & Chem 7: 04/20/24 05:53 04/22/24 08:04 Labs: Abnormal Lab Results - Last 24 Hours (Table) 04/22/24 04/22/24 04/22/24 Range/Units 11:39 16:31 19:55 POC Glucose (mg/dL) 238 H 271 H 288 H (70-110) mg/dL 04/23/24 Range/Units 06:00 POC Glucose (mg/dL) 127 H (70-110) mg/dL Assessment and Plan Assessment: Acute kidney injury secondary to ATN secondary to cardiorenal syndrome. No hydronephrosis noted on kidney ultrasound done in December 2023. Creatinine 2.9 on admission and is stable at 1.28 yesterday. Renal fx had worsened due to hemodynamic instability/afib w/rvr. S/p JESS with cardioversion 04/08/24. UA benign. Hypervolemic hyponatremia. Improved. Chronic kidney disease stage IIIa with baseline creatinine 1.2-1.4 secondary to nephrosclerosis. Volume overload. Improved with diuresis. Hyperphosphatemia secondary to acute kidney injury. Phosphorus level 7.0 dated April 05, 2024 and 3.1 on 04/07/24. Resolved Morbid obesity. Acute hypoxic respiratory failure. Improved. Acute on chronic diastolic CHF Lower extremity cellulitis on antibiotics. Plan: Maintain torsemide 10 mg once daily. Farxiga held due to acute infection in the lower extremities. Can be resumed upon discharge once infection resolves. Low-salt diet and 1500 cc fluid restriction. Continue to monitor renal function and urine output. Repeat BMP and magnesium level 2 to 3 days postdischarge. Follow-up outpatient 1 week postdischarge.
[2024-04-23 11:37] LABS: Glucose,Whole Blood 173 mg/dL (70-110)
--- NOTE | 2024-04-23 13:46 | P.PN ---
Subjective Progress Note Date: 04/23/24 Principal diagnosis: Acute on chronic hypoxic and hypercapnic respiratory failure secondary to chronic diastolic congestive heart failure and chronic obstructive pulmonary disease FEV1 of 22% This is a 58-year-old white male with morbid obesity, chronic diastolic congestive heart failure, chronic obstructive pulmonary disease, chronic kidney disease, familiar to my service from previous admissions, patient presented to the ER with few days history of increased shortness of breath, weakness, generalized medical debility. No chest pain, no fever, no chills, no hemoptysis, workup in the ER included CBC that showed WBC count of 7.1 hemoglobin 15.6, abnormal potassium of 5.6 abnormal renal profile with a BUN of 119 creatinine 2.94 and abnormal BNP level of 13,300. On his initial arrival, patient was in moderate respiratory distress he was placed on BiPAP 14/6/50%, when I saw the patient I recommended an ABG that showed a pO2 of 68 pCO2 55 pH of 7.35 and this was on BiPAP. Chest x-ray showed evidence of mild interstitial edema and the patient is now on Lasix 60 mg IV push twice daily. Patient is on bronchodilators he is also on methylprednisolone 60 mg IV push every 6 hours. Progress note dated April 06, 2024. 58-year-old male seen today in room 364. He was seen in consultation yesterday. The patient has a history of chronic diastolic CHF, and chronic obstructive pulmonary disease among other things. Currently he is on 6 L nasal cannula. No IV fluids. He has a BiPAP device in the room, with settings of 14/6, and 50%. Clinically, the patient states that he starting to feel a bit better. His chest x-ray revealed mild interstitial edema. He was placed on Lasix. He is also getting bronchodilators and corticosteroids. Current laboratory data includes a completely normal CBC. Sodium 137, potassium 4.4, chlorides 97, CO2 34, BUN 97, creatinine 1.60. Glucose is 386. Progress note dated April 07, 2024. 58-year-old male seen in room 364. Currently, the patient is not receiving any IV fluids. The patient is currently on 4 L nasal cannula. He is walking around the room. He did use both BiPAP and nasal O2 last night. He used BiPAP for about 4 hours. His settings were 14/6, and 50%. Current labs include a white count 10.6, hemoglobin 16.3, hematocrit 48.2, and a normal platelet count. Sodium 137, potassium 3.8, chlorides 98, CO2 36, BUN 96, creatinine 1.49. Glucose is 210. Progress note dated April 08, 2024. 58-year-old male who is seen today in room 364. The patient was to have a transesophageal echocardiogram, and cardioversion, by cardiology today. He remains on 4 L of oxygen by nasal cannula. According to the nurses, the patient had a relatively uneventful night. Laboratory data includes a sodium 137, potas sium 3.8, chlorides 94, CO2 35, BUN 105, creatinine 1.93. Glucose is 242. Calcium 9.4. Progress note dated April 09, 2024. The patient had a transesophageal echocardiogram and cardioversion, yesterday, but unfortunately, he is back in atrial fibrillation. He is seen today in room 364. He is on amiodarone at 0.5 mg/min. He is getting nasal O2 at 3 L by nasal cannula. The patient did spend some time last night on BiPAP, with settings of 14/6, 50%. Current laboratory data includes a white count 7.9, hemoglobin 16.7, hematocrit 52.3, and a platelet count is normal. Sodium 136, potassium 3.8, chlorides 91, CO2 38, BUN 102, and creatinine 1.94. Glucose is 361. Albumin is 4. Progress note dated April 10, 2024. 58-year-old male seen again in room 364. The patient continues on oxygen, at 3 L. In addition, because of ongoing atrial fibrillation and RVR, the patient continues on amiodarone 0.5 mg/min. The patient does have some mild shortness of breath on exertion, no other complaints. He denies any chest pain. Current labs include a sodium 131, potassium 4.5, chlorides 93, CO2 29, BUN 96, and creatinine 1.81. Calcium is 8.8. Glucose is 293. Progress note dated April 11, 2024. 58-year-old male seen in room 364. The patient is sitting on the side of his bed. He is in no acute distress. The patient continues on 3 L nasal cannula. No IV fluids. Yesterday he was on amiodarone drip. That has been turned off. He does use BiPAP at nighttime, with settings of 14/6, and 50%. Current labs with a white count 17.8, hemoglobin 17.1, hematocrit 52.5, and a platelet count of 151,000. Sodium 135, potassium 4.5, chloride 94, CO2 33, BUN 94, creatinine 1.92. Glucose is 290. Progress note dated April 12, 2024. 58-year-old male who is seen today in room 364. The patient remains on O2 at 3 L. He does use BiPAP at nighttime, with settings of 14/6, and 50%. The patient continues in atrial fibrillation. His lungs are clear to auscultation on examination. Labs include sodium 135, potassium 4.9, chlorides 97, CO2 35, BUN 80, creatinine 1.60. Glucose is 229. Calcium is 8.8. 04/13/2024, the patient is on room air oxygen. Awake and alert and communic ating. Denies having any significant respiratory difficulties. In terms of diuretics, the patient is on Demadex 10 mg p.o. daily and is also on Aldactone 12.5 mg p.o. daily. He remains on DuoNeb device treatments [id number]. He is on Symbicort as maintenance and IV Solu-Medrol 40 mg every 12 hours. The blood work shows a BUN of 76 with a creatinine of 1.4 and sodium is at 136 and a potassium level of 5.5. Serum bicarb is at 32. WBC count at 17.8 with a hemoglobin of 17 and a platelet count of 151. Most recent chest x-ray was from 04/08/2024 and it showed improved CHF. Patient denies having any other new complaints for now. 04/14/2024, the patient's overall respiratory status is stable. The x-ray of the foot was done yesterday and it showed a radiodense lesion in the heel, s uggesting a foreign body. Based on that, the patient will have another evaluation with the surgical team. Meanwhile, respite status is stable. The patient is currently on 3 L of oxygen by nasal cannula with a pulse ox of 98%. The patient remains on DuoNeb updrafts. The patient is on Symbicort. The patient is also on a combination of Aldactone and Demadex. He remains on IV Solu-Medrol 40 mg every 12 hours. Blood work shows a BUN of 69 with a creatinine of 1.4 and a sodium level is 137 and a potassium level is 5.6 and a serum bicarb is at 36. The most recent CBC showed a WBC of 17.9 and a hemoglobin of 17.1. The patient remains on IV cefazolin. The patient remains on Levemir insulin 15 units twice daily plus a sliding scale coverage. Denies having any significant complaints otherwise. Ultrasound Doppler of the lower extremity was negative for DVT. On today's evaluation of 04/15/2024, the patient is calm and comfortable without having any major respiratory difficulties. The patient has no respiratory distress. Patient is currently on 3 L of oxygen by nasal cannula with pulse ox of 96%. No cough or sputum production or chest tightness or wheezing. Limited edema lower extremities bilaterally more so on the right. The patient had another surgical evaluation and a piece of glass was removed from his right heel by the surgical team. Cultures from the right lower extremity are still pending and the patient remains on IV cefazolin. Continues to have discoloration of the right lower extremity and the patient is post surgical debridement. Otherwise, rest of the medication remains unchanged. BUN 16 with a creatinine of 1.5 and a creatinine remained stable. Sodium is at 136, potassium is at 4.8, chloride 96 with a bicarb of 39. 04/16/2024, the patient is working with physical therapy. No new complaints. The wound cultures showed MRSA and the patient was started on daptomycin. IV cefazolin has been discontinued. BUN 66 with a creatinine 1.4 and sodium levels at 138 and a potassium level is at 5.3. He is afebrile hemodynamically stable. He remains on 2 L of oxygen by nasal cannula with a pulse ox of 95%. The patient remains on anticoagulation with Eliquis. The patient remains on Demadex 10 mg p.o. daily. Rest of the medication remain unchanged. On a prednisone burst taper starting with 30 mg as part of his best burst taper. 04/17/2024, the patient is being seen for a follow-up. Complaining of generalized bodyaches. No respiratory difficulties. Remains on 3 Suboxone by nasal cannula. Remains on the same diuretic dose and the patient is on Demadex 10 mg p.o. daily. Remains on the same antibiotic coverage which includes IV daptomycin. Sodium levels at 135, BUN 63 with a creatinine of 1.4 and a potassium level is at 4.7. Wound culture was positive for MRSA. No altered mentation. Mobility is limited and the patient is working with physical therapy. 04/18/2024, no interval change in the patient's overall respiratory status. No new complaints for now. Labs were noted. BUN is at 54 with a creatinine 1.3 and sodium levels at 135. The patient remains on daptomycin. Remains on a combination of Aldactone and torsemide. No new complaints otherwise for now. 04/19/2024, no new complaints. The patient continues to have cellulitis and blistering in his right lower extremity along with MRSA wounds. Remains on daptomycin. No respiratory difficulties for now. Oxygen requirements remain unchanged 3 L/min nasal cannula. Nephrology is also on the case. ID is on the case. Await second 11 labile of 15.20 platelet count of 94. BUN is 56 with a creatinine 1.35. Seen today on 04/20/2024, patient remains on antibiotics for his cellulitis and blistering the right lower extremity with MRSA infection, patient is still on daptomycin, being followed closely by infectious disease. Pulmonary hernandez he seems to be comfortable, does not seem to be in any distress. On 3 L nasal cannula with O2 sats of 94%WBC count is 12.1 hemoglobin is 14.8 basic metabolic profile is normal BUN is 56 creatinine 1.35 bicarb is 37 Seen today on 04/23/2024, patient is doing relatively well, remains on antibiotics for cellulitis, patient has a PICC line, and infectious disease planning outpatient IV antibiotics. Patient is supposed to go to rehab today. Pulmonary hernandez I am clearing the patient for discharge if cleared by other co nsultants. He has no complaints, he believes his pulmonary status is relatively stable in spite of its severity. Objective - Vital Signs Vital signs: Vital Signs Temp 97.4 F L 04/23/24 08:00 Pulse 88 04/23/24 08:38 Resp 20 04/23/24 08:38 BP 110/76 04/23/24 08:00 Pulse Ox 96 04/23/24 08:29 FiO2 50 04/22/24 09:14 Intake & Output 04/22/24 04/23/24 04/23/24 18:59 06:59 18:59 Intake Total 750 757 380 Output Total 1500 Balance 750 -743 380 Weight 161.3 kg 161.1 kg Intake: IV 30 20 20 Invasive Line 8 20 20 20 Invasive Line 9 10 Oral 720 737 360 Output: Urine 1500 Other: Voiding Method Urinal Urinal Urinal # Voids 3 - Exam Physical exam: Reveals 62-year-old white male in no distress on 3 L nasal cannula HEENT examination is grossly unremarkable. Mucous membranes are moist. No oral lesions. Neck supple. Full range of motion. No adenopathy thyromegaly or neck vein distention. Cardiovascular examination reveals an irregular rhythm and rate. S1-S2 normal. No S3 or S4. No discernible murmur noted. Lungs reveal diminished bilateral breath sounds. No crackles rhonchi or wheezes Abdomen soft bowel sounds are heard. No masses or tenderness. Extremities reveal 3+ bilateral lower extremity pitting edema. Blistering cellulitis to right lower extremity wrapped with sterile dressing Skin: As noted above Neurologic: Alert oriented x 3 no gross focal deficit Psychiatric: Normal mood affect and normal to status examination - Labs CBC & Chem 7: 04/20/24 05:53 04/22/24 08:04 Labs: Abnormal Lab Results - Last 24 Hours (Table) 04/22/24 04/22/24 04/23/24 Range/Units 16:31 19:55 06:00 POC Glucose (mg/dL) 271 H 288 H 127 H (70-110) mg/dL 04/23/24 Range/Units 11:35 POC Glucose (mg/dL) 173 H (70-110) mg/dL Assessment and Plan Assessment: Impression: Acute on chronic hypoxemic, and hypercapnic respiratory failure, secondary to an exacerbation of chronic diastolic congestive heart failure. Chest x-ray showing cardiomegaly, pulmonary vascular congestion, interstitial edema. Very severe chronic obstructive pulmonary disease, with an FEV1 22% of predicted Obstructive sleep apnea, patient is noncompliant with his noninvasive positive airway pressure machine Morbid obesity, with a BMI of 48.7 kg/m Acute on chronic kidney disease Hyperkalemia, secondary to above Chronic lower extremity edema, with multiple venous stasis ulcers History of hypertension History of hyperlipidemia Former tobacco dependence Severe cellulitis of right lower extremity Recommendation: Continue oxygen and titrate accordingly Continue BiPAP as needed Continue diuretics Continue antibiotics Continue bronchodilators for COPD Continue prednisone 30 mg p.o. daily taper on outpatient basis Continue physical therapy Continue Eliquis Will clear the patient for discharge if cleared by infectious disease on the case and other center consultant Time with Patient: Less than 30
--- NOTE | 2024-04-23 17:42 | P.PN ---
Subjective Progress Note Date: 04/23/24 Principal diagnosis: Reason for follow-up is a right lower extremity cellulitis and right foot foreign body Patient is a 58-year-old male with a past medical history significant for atrial fibrillation asthma heart failure COPD hypertension hyperlipidemia sleep apnea presented to hospital for evaluation of increasing shortness of breath patient also developed increasing redness to the right leg with pain to the right heel with the x-ray showing evidence of foreign body. On today's evaluation that is 04/23/2024,the patient denies any fever or any chills, patient is breathing comfortably on 3 L nasal cannula oxygen, the patient denies chest pain shortness of breath and no significant cough, patient denies abdominal pain, no nausea vomiting or diarrhea. Swelling and pain to the lower extremity has decreased in intensity. No new lab has been obtained today Objective - Vital Signs Vital signs: Vital Signs Temp 97.7 F 04/23/24 00:16 Pulse 88 04/23/24 08:38 Resp 20 04/23/24 08:38 BP 123/87 04/23/24 04:05 Pulse Ox 96 04/23/24 08:29 FiO2 50 04/22/24 09:14 Intake & Output 04/22/24 04/23/24 04/23/24 18:59 06:59 18:59 Intake Total 750 757 Output Total 1500 Balance 750 -743 Weight 161.3 kg 161.1 kg Intake: IV 30 20 Invasive Line 8 20 20 Invasive Line 9 10 Oral 720 737 Output: Urine 1500 Other: Voiding Method Urinal Urinal # Voids 3 - Exam GENERAL DESCRIPTION: Middle-age male lying in bed in no distress RESPIRATORY SYSTEM: Unlabored breathing , decreased breath sounds at bases HEART: S1 S2 regular rate and rhythm , ABDOMEN: Soft , no tenderness EXTREMITIES: Right leg currently covered with Gonzalez wrap with minimal drainage - Labs CBC & Chem 7: 04/20/24 05:53 04/22/24 08:04 Labs: Abnormal Lab Results - Last 24 Hours (Table) 04/22/24 04/22/24 04/22/24 Range/Units 08:04 11:39 16:31 Chloride 96 L (98-107) mmol/L Carbon Dioxide 37 H (22-30) mmol/L BUN 47 H (9-20) mg/dL Creatinine 1.28 H (0.66-1.25) mg/dL Glucose 131 H (74-99) mg/dL POC Glucose (mg/dL) 238 H 271 H (70-110) mg/dL Calcium 8.1 L (8.4-10.2) mg/dL 04/22/24 04/23/24 Range/Units 19:55 06:00 Chloride (98-107) mmol/L Carbon Dioxide (22-30) mmol/L BUN (9-20) mg/dL Creatinine (0.66-1.25) mg/dL Glucose (74-99) mg/dL POC Glucose (mg/dL) 288 H 127 H (70-110) mg/dL Calcium (8.4-10.2) mg/dL Assessment and Plan (1) Cellulitis of right lower extremity Status: Acute Code(s): L03.115 - CELLULITIS OF RIGHT LOWER LIMB SNOMED Code(s): 45080358576838977 (2) Leukocytosis Status: Acute Code(s): D72.829 - ELEVATED WHITE BLOOD CELL COUNT, UNSPECIFIED SNOMED Code(s): 871871611 Plan: 1patient with diffuse swelling redness right lower extremity concerning for cellulitis likely from gram-positive skin alesia and this patient also have a painful sore to the right heel concerning for possible foreign body and may be the source of this cellulitis. 2x-rays of the right foot did shows evidence of foreign body more likely responsible for his pain patient is status post surgical removal of the foreign body as well as deep culture which are currently growing presumptive MRSA 3-patient is afebrile , local culture positive for MRSA, 4-patient to continue current wound care apply dry Aquacel silver dressing ABD and then an Gonzalez wrap 5-and plan is for daptomycin x 2 weeks on discharge giving well extensive cellulitis, and close outpatient follow-up Dictation was produced using [employer] software. please excuse any grammatical, word or spelling errors. Time with Patient: Less than 30
--- NOTE | 2024-04-29 06:55 | HM ---
HOLTER MONITOR REPORT STUDY: 5-day Holter monitor. DIAGNOSIS: Atrial fibrillation. FINDINGS: Monitor showed atrial fibrillation with rapid ventricular rate. Heart rate varied from 70 beats per minute to 160 beats per minute with an average heart rate of 108 beats per minute. CONCLUSIONS: Atrial fibrillation with poorly controlled ventricular rate. MMODL / IJN: [id number] /
== END 2024-04-23 13:25 | DRG 194 ==
LOC: EC 18:35 → 3SCARD 20:37
PROVIDERS: ADMIT Hospitalist; ATTEND Hospitalist
PROC: 5A2204Z Restoration of Cardiac Rhythm, Single (ICD-10-PCS; 2024-04-08)
PROC: B24BZZ4 Ultrasonography of Heart with Aorta, Transesophageal (ICD-10-PCS; principal; 2024-04-08 10:30)
PROC: 0HCMXZZ Extirpation of Matter from Right Foot Skin, External Approach (ICD-10-PCS; 2024-04-15)
DX: I13.0 Hypertensive heart and chronic kidney disease with heart failure and stage 1 through stage 4 chronic kidney disease, or unspecified chronic kidney disease (principal); J44.1 Chronic obstructive pulmonary disease with (acute) exacerbation; E66.01 Morbid (severe) obesity due to excess calories; E78.5 Hyperlipidemia, unspecified; G47.33 Obstructive sleep apnea (adult) (pediatric); I50.33 Acute on chronic diastolic (congestive) heart failure; J96.21 Acute and chronic respiratory failure with hypoxia; I48.19 Other persistent atrial fibrillation; K21.9 Gastro-esophageal reflux disease without esophagitis; Z68.42 Body mass index [BMI] 45.0-49.9, adult; L03.115 Cellulitis of right lower limb; N17.0 Acute kidney failure with tubular necrosis; I34.0 Nonrheumatic mitral (valve) insufficiency; N18.31 Chronic kidney disease, stage 3a; Z91.198 Patient's noncompliance with other medical treatment and regimen for other reason; J96.22 Acute and chronic respiratory failure with hypercapnia; F32.A Depression, unspecified; E83.39 Other disorders of phosphorus metabolism; E87.5 Hyperkalemia; E87.1 Hypo-osmolality and hyponatremia; B95.62 Methicillin resistant Staphylococcus aureus infection as the cause of diseases classified elsewhere; I83.009 Varicose veins of unspecified lower extremity with ulcer of unspecified site; I87.2 Venous insufficiency (chronic) (peripheral); R53.81 Other malaise; S91.341A Puncture wound with foreign body, right foot, initial encounter; I73.9 Peripheral vascular disease, unspecified; W25.XXXA Contact with sharp glass, initial encounter; Z87.891 Personal history of nicotine dependence; Z79.899 Other long term (current) drug therapy; Z79.84 Long term (current) use of oral hypoglycemic drugs; Z79.52 Long term (current) use of systemic steroids; Z79.01 Long term (current) use of anticoagulants; Z91.119 Patient's noncompliance with dietary regimen due to unspecified reason; Z91.199 Patient's noncompliance with other medical treatment and regimen due to unspecified reason
CPT/HCPCS: 36415; 36573; 36600; 70450; 71045; 72125; 72170; 76770; 80048; 80053; 81001; 82607; 82805; 83036; 83605; 83735; 83880; 84100; 84484; 85025; 85027; 85610; 85730; 87070; 87075; 87077; 87186; 87205; 92960; 93005; 93225; 93226; 93312; 93320; 93325; 93970; 94640; 94660; 94760; 96361; 96374; 96375; 99291

== ENCOUNTER 2024-04-30 22:01 | Inpatient (IN) | payer MEDICARE ==
[2024-04-30] MEDS ORDERED: VANCOMYCIN IV PER PHARMACY 1 EACH MISC MISCELLANE PRN (22:21)
--- NOTE | 2024-04-30 22:30 | ED ---
Fever HPI - General Chief Complaint: Fever Stated Complaint: Sepsis Time Seen by Provider: 04/30/24 22:08 Source: patient, EMS Mode of arrival: EMS Limitations: physical limitation - History of Present Illness Initial Comments: Patient is a 59-year-old man sent in from prison with concerns about worsening of his right leg infection. The patient is a 59-year-old man who had been admitted in the hospital on April 04 for right lower extremity infection. He was discharged on the to go to prison to continue course of antibiotics for MRSA. It is reported that the patient does not have a good functioning IV line. It is unclear from the transfer paperwork when his last dose of antibiotics was successfully administered. The patient is not able to answer that question. The patient does state that he is feeling very weak and he has had fevers today. He denies chest pain. He does have some dyspnea but states that this is not uncommon as he does have severe COPD. He has not noted productive cough. No changes in urination or bowel movements. MD Complaint: fever, weakness -: unknown Temperature Source: oral Context: recent antibiotic use Associated Symptoms: chills, shortness of breath (Chronic) - Related Data Home Medications Medication Instructions Recorded Confirmed hydrOXYzine pamoate [Vistaril] 50 mg PO HS PRN 07/09/22 05/07/24 Atorvastatin [Lipitor] 10 mg PO HS 08/01/22 05/07/24 Apixaban [Eliquis] 5 mg PO BID 12/12/23 05/07/24 Finasteride [Proscar] 5 mg PO DAILY 12/12/23 05/07/24 Sertraline [Zoloft] 50 mg PO DAILY 12/12/23 05/07/24 Albuterol Sulfate [Ventolin HFA] 1 puff INHALATION RT-BID 04/04/24 05/07/24 0.9 % Sodium Chloride [Sodium 10 ml IV BID 05/01/24 05/07/24 Chloride Flush] Acetaminophen [Tylenol] 650 mg PO Q6H PRN 05/01/24 05/07/24 INSULIN ASPART (NovoLOG) [NovoLOG See Protocol SQ ACHS 05/01/24 05/07/24 (formulary)] Naloxone HCl [Narcan] 4 mg NASAL DIRECTED PRN 05/01/24 05/07/24 Prochlorperazine [Compazine] 10 mg PO Q8H PRN 05/01/24 05/07/24 Tamsulosin [Flomax] 0.4 mg PO DAILY 05/01/24 05/07/24 Torsemide [Demadex] 10 mg PO DAILY 05/01/24 05/07/24 Previous Rx's Medication Instructions Recorded Dapagliflozin Propanediol [Farxiga] 10 mg PO DAILY 30 Days #30 tab 09/10/22 busPIRone HCl [Buspar] 5 mg PO TID 30 Days #90 tab 09/10/22 Amiodarone [Cordarone] 400 mg PO BID tab 04/22/24 Budesonide-Formot 160-4.5 Mcg 2 puff INHALATION RT-BID each 04/22/24 [Symbicort 160-4.5 Mcg Inhaler] Calcium Carbonate [Tums] 1,000 mg PO QID PRN tab 04/22/24 Insulin Detemir (Levemir) [Levemir] 15 unit SQ BID@0700,2100 each 04/22/24 Ipratropium-Albuterol Nebulize 3 ml INHALATION RT-Q2H PRN each 04/22/24 [Duoneb 0.5 mg-3 mg/3 ml Soln] Ipratropium-Albuterol Nebulize 3 ml INHALATION RT-QID each 04/22/24 [Duoneb 0.5 mg-3 mg/3 ml Soln] Metoprolol Tartrate [Lopressor] 150 mg PO BID tab 04/22/24 Pantoprazole [Protonix] 40 mg PO AC-BID tab 04/22/24 Spironolactone [Aldactone] 12.5 mg PO DAILY tab 04/22/24 diphenhydrAMINE [Benadryl] 25 mg PO BID PRN cap 04/22/24 predniSONE See Taper PO DIRECTED #30 tab 04/22/24 ALPRAZolam [Xanax] 0.25 mg PO TID #6 tab 05/05/24 Cephalexin [Keflex] 500 mg PO Q6HR 10 Days #40 cap 05/05/24 Doxycycline [Vibramycin] 100 mg PO BID 10 Days #20 capsule 05/05/24 HYDROcodone/APAP 7.5-325MG [[place] 1 tab PO Q6HR PRN #6 tab 05/05/24 7.5-325] Pregabalin [Lyrica] 150 mg PO BID #6 cap 05/05/24 SILVER sulfADIAZINE Cream 1 applic TOPICAL DAILY each 05/05/24 [Silvadene 1% Cream] Allergies Allergy/AdvReac Type Severity Reaction Status Date / Time No Known Allergies Allergy Verified 05/07/24 14:00 Review of Systems ROS Statement: Those systems with pertinent positive or pertinent negative responses have been documented in the HPI. ROS Other: All systems not noted in ROS Statement are negative. Constitutional: Reports: as per HPI, fever, chills, weakness Eyes: Denies: vision change Respiratory: Reports: as per HPI, dyspnea, wheezes. Denies: cough, hemoptysis Cardiovascular: Reports: edema. 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 History of Any Multi-Drug Resistant Organisms: MRSA Date of last positivie culture/infection: 11/15/22 MDRO Source:: Left Leg Past Surgical History: Hernia Repair, Joint Replacement, Orthopedic Surgery Additional Past Surgical History / Comment(s): RT ARMAND, rt foot SX, Past Anesthesia/Blood Transfusion Reactions: No Reported Reaction Past Psychological History: Depression Smoking Status: Former smoker Past Alcohol Use History: None Reported Past Drug Use History: None Reported - Past Family History Mother Family Medical History: No Reported History General Exam Limitations: physical limitation General appearance: alert, in no apparent distress Head exam: Present: atraumatic, normocephalic Eye exam: Present: normal appearance. Absent: scleral icterus, conjunctival injection ENT exam: Present: mucous membranes dry Neck exam: Present: normal inspection Respiratory exam: Present: wheezes, decreased breath sounds. Absent: rales, rhonchi, stridor, accessory muscle use Cardiovascular Exam: Present: tachycardia. Absent: systolic murmur, diastolic murmur, rubs, gallop GI/Abdominal exam: Present: soft. Absent: distended, tenderness, guarding, rebound, rigid, mass, pulsatile mass, hernia Extremities exam: Present: normal inspection, normal capillary refill. Absent: pedal edema, calf tenderness Back exam: Present: normal inspection. Absent: CVA tenderness (R), CVA tenderness (L) Neurological exam: Present: alert Skin exam: Present: warm, dry, intact, normal color. Absent: rash Course Vital Signs 04/30/24 04/30/24 05/01/24 22:13 23:16 00:17 Temperature 103.2 F H 102.7 F H 100.4 F H Pulse Rate 128 H 124 H 112 H Respiratory 20 20 20 Rate Blood Pressure 122/72 101/62 114/67 O2 Sat by Pulse 95 95 89 L Oximetry 05/01/24 05/01/24 05/01/24 00:45 01:39 03:30 Temperature 99.3 F Pulse Rate 117 H 113 H 117 H Respiratory 20 22 26 H Rate Blood Pressure 114/67 101/31 110/62 O2 Sat by Pulse 93 L 94 L 82 L Oximetry 05/01/24 05/01/24 05/01/24 03:45 03:50 04:30 Temperature Pulse Rate 112 H 114 H 112 H Respiratory 20 Rate Blood Pressure O2 Sat by Pulse 93 L Oximetry 05/01/24 05/01/24 06:05 07:15 Temperature 97.6 F 98.9 F Pulse Rate 113 H 107 H Respiratory 20 22 Rate Blood Pressure 104/68 130/78 O2 Sat by Pulse 91 L 95 Oximetry Medical Decision Making - Medical Decision Making Was pt. sent in by a medical professional or institution (, PA, DICTATING MACHINE TRANSCRIBER, urgent care, hospital, or prison...) When possible be specific @ -[Yes, sent from long-term care facility to have evaluation Did you speak to anyone other than the patient for history (EMS, parent, family, police, friend...)? What history was obtained from this source @ -[No] Did you review nursing and triage notes (agree or disagree)? Why? @ -[I reviewed and agree with nursing and triage notes] Were old charts reviewed (outside hosp., previous admission, EMS record, old EKG, old radiological studies, urgent care reports/EKG's, prison records)? Report findings @ -[Yes, old charts were reviewed] Differential Diagnosis (chest pain, altered mental status, abdominal pain women, abdominal pain men, vaginal bleeding, weakness, fever, dyspnea, syncope, headache, dizziness, GI bleed, back pain, seizure, CVA, palpatations, mental health, musculoskeletal)? @ -[Differential Fever: Pneumonia, viral URI, endocarditis, myocarditis, pericarditis, otitis, sinusitis, peritonsillar Abscess, retropharyngeal Abscess, epiglottitis, peritonitis, appendicitis, Eileen cystitis, diverticulitis, hepatitis, colitis, UTI, PID, TOA, pyelonephritis, prostatitis, epididymitis, meningitis, enc ephalitis, pulmonary embolism, CVA, thyroid storm, pancreatitis, adrenal crisis, cavernous sinus thrombosis, this is not meant to be an all-inclusive list. EKG interpreted by me (3pts min.). @ -[I interpreted as above] X-rays interpreted by me (1pt min.). @ -[I interpreted as above CT interpreted by me (1pt min.). @ -[None done] U/S interpreted by me (1pt. min.). @ -[None done] What testing was considered but not performed or refused? (CT, X-rays, U/S, labs)? Why? @ -[None] What meds were considered but not given or refused? Why? @ -[None] Did you discuss the management of the patient with other professionals (professionals i.e. , PA, DICTATING MACHINE TRANSCRIBER, lab, RT, psych nurse, social media content manager, police sergeant precinct, teacher, staff air defense officer, case planner)? Give summary @ -[Case discussed with admitting physician and treatment recommendations incorporated Was smoking cessation discussed for >3mins.? @ -[No] Was critical care preformed (if so, how long)? @ -[Yes, 35 minutes Were there social determinants of health that impacted care today? How? (Homelessness, low income, unemployed, alcoholism, drug addiction, transportation, low edu. Level, literacy, decrease access to med. care, group home, rehab)? @ -[No] Was there de-escalation of care discussed even if they declined (Discuss DNR or withdrawal of care, Hospice)? DNR status @ -[No] What co-morbidities impacted this encounter? (DM, HTN, Smoking, COPD, CAD, Cancer, CVA, ARF, Chemo, Hep., AIDS, mental health diagnosis, sleep apnea, morbid obesity)? @ -[History of CHF, diabetes, morbid obesity, COPD Was patient admitted / discharged? Hospital course, mention meds given and route, prescriptions, significant lab abnormalities, going to OR and other p ertinent info. @ -[Patient is 59-year-old man with leg infection, transferred back from skilled care facility due to problem with receiving antibiotics and recurrent fever. The patient on arrival given antibiotics and modified sepsis bolus as the patient does have history of congestive heart failure. Patient will be admitted to have wound care consultation, ID consultation, antibiotic therapy. Undiagnosed new problem with uncertain prognosis? @ -[No] Drug Therapy requiring intensive monitoring for toxicity (Heparin, Nitro, Insulin, Cardizem)? @ -[No] Were any procedures done? @ -[No] Diagnosis/symptom? @ -[Lower extremity cellulitis/abscess Sepsis Acute, or Chronic, or Acute on Chronic? @ -[Acute on chronic Uncomplicated (without systemic symptoms) or Complicated (systemic symptoms)? @ -[Complicated by sepsis Side effects of treatment? @ -[No] Exacerbation, Progression, or Severe Exacerbation? @ -[No] Poses a threat to life or bodily function? How? (Chest pain, [place], [place], pneumonia, PE, COPD, DKA, ARF, appy, cholecystitis, CVA, Diverticulitis, Homicidal, Suicidal, threat to staff... and all critical care pts) @ -[Yes, risk of worsening sepsis and - Lab Data Result diagrams: 05/05/24 07:32 05/05/24 07:32 Lab Results 04/30/24 04/30/24 04/30/24 Range/Units 22:44 22:44 22:44 WBC 3.8 (3.8-10.6) k/uL RBC 4.99 (4.30-5.90) m/uL Hgb 14.4 (13.0-17.5) gm/dL Hct 45.5 (39.0-53.0) % MCV 91.0 (80.0-100.0) fL MCH 28.9 (25.0-35.0) pg MCHC 31.7 (31.0-37.0) g/dL RDW 16.0 H (11.5-15.5) % Plt Count 199 D (150-450) k/uL MPV 8.0 Neutrophils % 82 % Lymphocytes % 7 % Monocytes % 7 % Eosinophils % 1 % Basophils % 1 % Neutrophils # 3.1 (1.3-7.7) k/uL Lymphocytes # 0.3 L (1.0-4.8) k/uL Monocytes # 0.3 (0-1.0) k/uL Eosinophils # 0.1 (0-0.7) k/uL Basophils # 0.0 (0-0.2) k/uL Hypochromasia Slight Anisocytosis Slight PT 11.1 (10.0-12.5) sec INR 1.0 (<1.2) APTT 24.6 (22.0-30.0) sec Sodium 135 L (137-145) mmol/L Potassium 5.4 H (3.5-5.1) mmol/L Chloride 93 L (98-107) mmol/L Carbon Dioxide 35 H (22-30) mmol/L Anion Gap 7 mmol/L BUN 37 H (9-20) mg/dL Creatinine 1.28 H (0.66-1.25) mg/dL Est GFR (CKD-EPI)AfAm 69 (>60 ml/min/1.73 sqM) Est GFR (CKD-EPI)NonAf 60 (>60 ml/min/1.73 sqM) Glucose 125 H (74-99) mg/dL Plasma Lactic Acid Ankur (0.7-2.0) mmol/L Calcium 8.0 L (8.4-10.2) mg/dL Total Bilirubin 1.0 (0.2-1.3) mg/dL AST 31 (17-59) U/L ALT 31 (4-49) U/L Alkaline Phosphatase 108 (38-126) U/L Troponin I (0.000-0.034) ng/mL NT-Pro-B Natriuret Pep 6060 pg/mL Total Protein 6.3 (6.3-8.2) g/dL Albumin 3.3 L (3.5-5.0) g/dL 04/30/24 04/30/24 Range/Units 22:44 22:44 WBC (3.8-10.6) k/uL RBC (4.30-5.90) m/uL Hgb (13.0-17.5) gm/dL Hct (39.0-53.0) % MCV (80.0-100.0) fL MCH (25.0-35.0) pg MCHC (31.0-37.0) g/dL RDW (11.5-15.5) % Plt Count (150-450) k/uL MPV Neutrophils % % Lymphocytes % % Monocytes % % Eosinophils % % Basophils % % Neutrophils # (1.3-7.7) k/uL Lymphocytes # (1.0-4.8) k/uL Monocytes # (0-1.0) k/uL Eosinophils # (0-0.7) k/uL Basophils # (0-0.2) k/uL Hypochromasia Anisocytosis PT (10.0-12.5) sec INR (<1.2) APTT (22.0-30.0) sec Sodium (137-145) mmol/L Potassium (3.5-5.1) mmol/L Chloride (98-107) mmol/L Carbon Dioxide (22-30) mmol/L Anion Gap mmol/L BUN (9-20) mg/dL Creatinine (0.66-1.25) mg/dL Est GFR (CKD-EPI)AfAm (>60 ml/min/1.73 sqM) Est GFR (CKD-EPI)NonAf (>60 ml/min/1.73 sqM) Glucose (74-99) mg/dL Plasma Lactic Acid Ankur 1.3 (0.7-2.0) mmol/L Calcium (8.4-10.2) mg/dL Total Bilirubin (0.2-1.3) mg/dL AST (17-59) U/L ALT (4-49) U/L Alkaline Phosphatase (38-126) U/L Troponin I 0.026 (0.000-0.034) ng/mL NT-Pro-B Natriuret Pep pg/mL Total Protein (6.3-8.2) g/dL Albumin (3.5-5.0) g/dL - EKG Data -: EKG Interpreted by Fl EKG shows normal: axis (Normal), intervals (QRS duration prolonged at 133 ms, consistent with right bundle branch block. QTc 413 ms.), QRS complexes (Right bundle branch block pattern.) Rate: tachycardia (116 bpm) Interpretation: other (Underlying rhythm appears to be atrial fibrillation with rapid ventricular rate) Disposition Clinical Impression: Cellulitis of right lower extremity Disposition: ADMITTED IP TO THIS HOSP Condition: Fair Is patient prescribed a controlled substance at d/c from ED?: No
[2024-04-30] MEDS: SODIUM CHLORIDE 0.9% 500 ML 500 ML IV SCH (22:48)
--- NOTE | 2024-04-30 22:48 | XR ---
EXAMINATION TYPE: XR chest 1V portable DATE OF EXAM: 04/30/2024 COMPARISON: Chest x-ray 10 days earlier HISTORY: Fever. TECHNIQUE: Single frontal view of the chest is obtained. FINDINGS: Patchy right basilar opacity is improved from prior. Gross cardiomegaly is redemonstrated . The osseous structures are intact. IMPRESSION: Cardiomegaly with patchy right basilar opacity favoring atelectasis. Improved left basil ar acute infiltrate. No new acute infiltrate is seen. [facility], , 04/30/2024 10:46 PM
[2024-04-30] MEDS: SODIUM CHLORIDE 0.9% 500 ML 500 ML IV STA (22:49)
[2024-04-30 23:06] LABS: Anisocytosis Slight; Basophils % (A) 1 %; Eosinophils # (A) 0.1 k/uL (0-0.7); Eosinophils % (A) 1 %; HCT 45.5 % (39.0-53.0); HGB 14.4 gm/dL (13.0-17.5); Hypochromasia Slight; Lymphocytes # (A) 0.3 k/uL (1.0-4.8); Lymphocytes % (A) 7 %; MCH 28.9 pg (25.0-35.0); MCHC 31.7 g/dL (31.0-37.0); Monocytes # (A) 0.3 k/uL (0-1.0); Monocytes % (A) 7 %; Neutrophils # (A) 3.1 k/uL (1.3-7.7); Neutrophils % (A) 82 %; RBC 4.99 m/uL (4.30-5.90); WBC 3.8 k/uL (3.8-10.6)
[2024-04-30 23:14] LABS: ALT 31 U/L (4-49); African American GFR (CKD) 69 (>60 ml/min/1.73 sqM); Albumin 3.3 g/dL (3.5-5.0); Blood Urea Nitrogen 37 mg/dL (9-20); Chloride 93 mmol/L (98-107); Glucose 125 mg/dL (74-99); Non-African American GFR(CKD) 60 (>60 ml/min/1.73 sqM); Sodium 135 mmol/L (137-145); Total Protein 6.3 g/dL (6.3-8.2)
[2024-04-30 23:21] LABS: Anion Gap 7 mmol/L
[2024-04-30 23:22] LABS: NT-Pro-B-Type Natriuretic Pept 6060 pg/mL
[2024-04-30 23:23] LABS: Partial Thromboplastin Time 24.6 sec (22.0-30.0); Platelet Count 199 k/uL (150-450); Prothrombin Time 11.1 sec (10.0-12.5)
[2024-04-30] MEDS: ACETAMINOPHEN TAB 325 MG TAB PO STA (23:26)
[2024-04-30] MEDS: PIPERACILLIN-TAZOBACTAM 3.375 GM in SODIUM CHLORIDE 0.9% 100 ML IVPB STA (23:27)
[2024-04-30 23:37] LABS: AST 31 U/L (17-59); Alkaline Phosphatase 108 U/L (38-126); Carbon Dioxide 35 mmol/L (22-30); Potassium 5.4 mmol/L (3.5-5.1)
[2024-05-01] MEDS: VANCOMYCIN 2,250 MG in SODIUM CHLORIDE 0.9% 500 ML 500 ML IVPB SCH (00:25)
[2024-05-01] MEDS: SODIUM CHLORIDE 0.9% 1,000 ML IV SCH (00:25)
[2024-05-01] MEDS: MORPHINE SULFATE 4 MG/ML SYRINGE IV STA (00:52)
[2024-05-01] MEDS: IPRATROPIUM-ALBUTEROL 3 ML NEB INHALATION PRN (03:43)
[2024-05-01] MEDS: PIPERACILLIN-TAZOBACTAM 3.375 GM in SODIUM CHLORIDE 0.9% 100 ML IVPB SCH (08:40)
[2024-05-01] MEDS: PANTOPRAZOLE 40 MG/10 ML VIAL IV SCH (08:40)
[2024-05-01] MEDS: IPRATROPIUM-ALBUTEROL 3 ML NEB INHALATION SCH (09:19)
[2024-05-01] MEDS ORDERED: hydrOXYzine pamoate 25 MG CAP PO PRN (10:07)
[2024-05-01] MEDS ORDERED: IPRATROPIUM-ALBUTEROL 3 ML NEB INHALATION PRN (10:07)
[2024-05-01] MEDS ORDERED: CALCIUM CARBONATE 500 MG CHEWABLE PO PRN (10:07)
[2024-05-01] MEDS ORDERED: ACETAMINOPHEN TAB 325 MG TAB PO PRN (10:07)
[2024-05-01] MEDS ORDERED: PROCHLORPERAZINE 10 MG TAB PO PRN (10:10)
[2024-05-01] MEDS ORDERED: DEXTROSE 50% SYRINGE 50 ML IVP PRN ×2 (10:11)
[2024-05-01 10:24] LABS: Appearance,Urine Clear (Clear); Bacteria,Urine Rare /hpf; Bilirubin,Urine Negative (Negative); Blood,Urine Small (Negative); Color,Urine Colorless; Glucose,Urine (UA) 4+ (Negative); Ketones,Urine Negative (Negative); Leukocyte Esterase,Urine Small (Negative); Nitrite,Urine Positive (Negative); PH, Urine 5.5 (5.0-8.0); Protein,Urine 1+ (Negative); RBC,Urine 2 /hpf (0-5); Specific Gravity,Urine 1.022 (1.001-1.035); Urobilinogen,Urine <2.0 mg/dL (<2.0); WBC,Urine 52 /hpf (0-5)
[2024-05-01] MEDS: diphenhydrAMINE 25 MG CAP PO PRN (10:35)
[2024-05-01] MEDS: TAMSULOSIN 0.4 MG CAP.ER.24H PO SCH (10:36)
[2024-05-01] MEDS: TORSEMIDE 20 MG TAB PO SCH (10:36)
[2024-05-01] MEDS: busPIRone HCl 5 MG TAB PO SCH (10:36)
[2024-05-01] MEDS: FINASTERIDE 5 MG TAB PO SCH (10:36)
[2024-05-01] MEDS: DAPAGLIFLOZIN PROPANEDIOL 10 MG TABLET PO SCH (10:37)
[2024-05-01] MEDS: ALPRAZolam 0.25 MG TAB PO SCH (10:37)
[2024-05-01] MEDS: AMIODARONE 200 MG TAB PO SCH (10:37)
[2024-05-01] MEDS: PREGABALIN 75 MG CAP PO SCH (10:38)
[2024-05-01] MEDS: predniSONE 10 MG TAB PO SCH (10:38)
[2024-05-01] MEDS: SPIRONOLACTONE 25 MG TAB PO SCH (10:38)
[2024-05-01] MEDS: HYDROcodone/APAP 7.5-325MG 1 EACH TAB PO PRN (10:38)
[2024-05-01] MEDS: APIXABAN 5 MG TAB PO SCH (10:38)
[2024-05-01] MEDS: PANTOPRAZOLE 40 MG TABLET PO SCH (10:42)
[2024-05-01] MEDS: SERTRALINE 50 MG TAB PO SCH (10:50)
[2024-05-01] MEDS: INSULIN DETEMIR (LEVEMIR) 100 UNIT/ML SYR SQ SCH (10:50)
[2024-05-01] MEDS: METOPROLOL TARTRATE 50 MG TAB PO SCH (10:50)
--- NOTE | 2024-05-01 10:58 | P.CONS ---
History of Present Illness - Reason for Consult Consult date: 05/01/24 wound care - History of Present Illness This is a 59-year-old patient being seen on [address]. for nonhealing ulceration to the right anterior lower extremity and right foot second digit. Patient states that the ulcerations have been there for a few weeks he was recently hospitalized and seen by Dr. Matta who did a debridement to the right foot second digit ulceration. Patient was then sent to an extended care facility for rehab. Patient is complaining of increased pain and swelling to the site. He does not know the dressings that were applied to the ulcerations. The right anterior lower extremity ulceration measures approximately 0.6 x 0.5 x 0.1 cm with significant amount of slough and nonviable tissue with minimal granulation seen edema and ecchymosis noted to the periwound. Right foot second digit measures approximately 0.4 x 0.5 x 0.1 cm granulation seen throughout the wound bed. Sanguinous draining noted. Patient continues to complain of significant amount of pain to the site. Review Of Systems: Constitutional: No fever, no chills, no night sweats. No weight change. No weakness, fatigue or lethargy. No daytime sleepiness. Integumentary:reports wounds, no lesions. No rash or pruritus. No unusual bruising. No change in hair or nails. Physical exam: General Appearance: Alert, cooperative, no distress, appears stated age. Skin: See HPI all other Skin color, texture, tugor normal, no rashes or lesions. Neurologic: Alert oriented x3 Assessment: 1. Nonhealing ulceration with fat layer exposure right lower extremity 2. Nonhealing ulceration with fat layer exposure other part of right foot Plan: 1.Right anterior lower extremity and right foot second digit apply absorptive silver, saline moist gauze, dry gauze, rolled gauze and secure with paper tape. Wrap with Gonzalez wrap for compression. Thank you for the consultation any questions please contact the wound care center. DNP note has been reviewed and discussed with Dr. Hyde and the impression and plan of care has been directed as dictated. 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 History of Any Multi-Drug Resistant Organisms: MRSA Year Discovered:: 11/15/22 MDRO Source:: Left Leg Past Surgical History: Hernia Repair, Joint Replacement, Orthopedic Surgery Additional Past Surgical History / Comment(s): RT ARMAND, rt foot SX, Past Anesthesia/Blood Transfusion Reactions: No Reported Reaction Past Psychological History: Depression Smoking Status: Former smoker Past Alcohol Use History: None Reported Past Drug Use History: None Reported - Past Family History Mother Family Medical History: No Reported History Medications and Allergies Home Medications Medication Instructions Recorded Confirmed Type hydrOXYzine pamoate [Vistaril] 50 mg PO HS PRN 07/09/22 05/01/24 History Atorvastatin [Lipitor] 10 mg PO HS 08/01/22 05/01/24 History Dapagliflozin Propanediol [Farxiga] 10 mg PO DAILY 30 Days #30 tab 09/10/2207/24 Rx busPIRone HCl [Buspar] 5 mg PO TID 30 Days #90 tab 09/10/22 05/01/24 Rx Apixaban [Eliquis] 5 mg PO BID 12/12/23 05/01/24 History Finasteride [Proscar] 5 mg PO DAILY 12/12/23 05/01/24 History Sertraline [Zoloft] 50 mg PO DAILY 12/12/23 05/01/24 History Albuterol Sulfate [Ventolin HFA] 1 puff INHALATION RT-BID 04/04/24 05/01/24 History ALPRAZolam [Xanax] 0.25 mg PO TID #6 tab 04/22/24 05/01/24 Rx Amiodarone [Cordarone] 400 mg PO BID tab 04/22/24 05/01/24 Rx Budesonide-Formot 160-4.5 Mcg 2 puff INHALATION RT-BID each 04/22/24 05/01/24 Rx [Symbicort 160-4.5 Mcg Inhaler] Calcium Carbonate [Tums] 1,000 mg PO QID PRN tab 04/22/24 05/01/24 Rx Insulin Detemir (Levemir) [Levemir] 15 unit SQ BID@0700,2100 each 04/22/24 05/01/24 Rx Ipratropium-Albuterol Nebulize 3 ml INHALATION RT-Q2H PRN each 04/22/24 05/01/24 Rx [Duoneb 0.5 mg-3 mg/3 ml Soln] Ipratropium-Albuterol Nebulize 3 ml INHALATION RT-QID each 04/22/24 05/01/24 Rx [Duoneb 0.5 mg-3 mg/3 ml Soln] Metoprolol Tartrate [Lopressor] 150 mg PO BID tab 04/22/24 05/01/24 Rx Pantoprazole [Protonix] 40 mg PO AC-BID tab 04/22/24 05/01/24 Rx Pregabalin [Lyrica] 150 mg PO BID #6 cap 04/22/24 05/01/24 Rx Spironolactone [Aldactone] 12.5 mg PO DAILY tab 04/22/24 05/01/24 Rx diphenhydrAMINE [Benadryl] 25 mg PO BID PRN cap 04/22/24 05/01/24 Rx predniSONE See Taper PO DIRECTED #30 tab 04/22/24 05/01/24 Rx 0.9 % Sodium Chloride [Sodium 10 ml IV BID 05/01/24 05/01/24 History Chloride Flush] Acetaminophen [Tylenol] 650 mg PO Q6H PRN 05/01/24 05/01/24 History DAPTOmycin [Cubicin] 450 mg IVPB Q24HR 05/01/24 05/01/24 History HYDROcodone/APAP 7.5-325MG [[place] 1 tab PO Q6HR PRN 05/01/24 05/01/24 History 7.5-325] INSULIN ASPART (NovoLOG) [NovoLOG See Protocol SQ ACHS 05/01/24 05/01/24 History (formulary)] Naloxone HCl [Narcan] 4 mg NASAL DIRECTED PRN 05/01/24 05/01/24 History Prochlorperazine [Compazine] 10 mg PO Q8H PRN 05/01/24 05/01/24 History Tamsulosin [Flomax] 0.4 mg PO DAILY 05/01/24 05/01/24 History Torsemide [Demadex] 10 mg PO DAILY 05/01/24 05/01/24 History oxyCODONE-APAP 10-325MG [[place] 1 tab PO Q4HR PRN 05/01/24 05/01/24 History 10-325 mg] Allergies Allergy/AdvReac Type Severity Reaction Status Date / Time No Known Allergies Allergy Verified 05/01/24 09:34 Physical Exam Vitals: Vital Signs Temp Pulse Pulse Resp BP BP Pulse Ox 05/01/24 09:31 72 18 05/01/24 09:19 73 18 05/01/24 08:48 98.0 F 70 20 127/63 97 05/01/24 07:15 98.9 F 107 H 22 130/78 95 05/01/24 06:05 97.6 F 113 H 20 104/68 91 L 05/01/24 04:30 112 H 20 93 L 05/01/24 03:50 114 H 05/01/24 03:45 112 H 05/01/24 03:30 117 H 26 H 110/62 82 L 05/01/24 01:39 99.3 F 113 H 22 101/31 94 L 05/01/24 00:45 117 H 20 114/67 93 L 05/01/24 00:17 100.4 F H 112 H 20 114/67 89 L 04/30/24 23:16 102.7 F H 124 H 20 101/62 95 04/30/24 22:13 103.2 F H 128 H 20 122/72 95 Intake and Output 04/30/24 05/01/24 05/01/24 22:59 06:59 14:59 Output Total 650 1000 Balance -650 -1000 Output: Urine 650 1000 Other: Weight 162.84 kg 162.84 kg Results CBC & Chem 7: 04/30/24 22:44 04/30/24 22:44 Labs: Abnormal Lab Results - Last 24 Hours (Table) 04/30/24 04/30/24 05/01/24 Range/Units 22:44 22:44 10:05 RDW 16.0 H (11.5-15.5) % Lymphocytes # 0.3 L (1.0-4.8) k/uL Sodium 135 L (137-145) mmol/L Potassium 5.4 H (3.5-5.1) mmol/L Chloride 93 L (98-107) mmol/L Carbon Dioxide 35 H (22-30) mmol/L BUN 37 H (9-20) mg/dL Creatinine 1.28 H (0.66-1.25) mg/dL Glucose 125 H (74-99) mg/dL Calcium 8.0 L (8.4-10.2) mg/dL Albumin 3.3 L (3.5-5.0) g/dL Urine Protein 1+ H (Negative) Urine Glucose (UA) 4+ H (Negative) Urine Blood Small H (Negative) Ur Leukocyte Esterase Small H (Negative) Urine WBC 52 H (0-5) /hpf Urine Bacteria Rare H (None) /hpf Assessment and Plan (1) Non-pressure ulcer of right lower extremity with fat layer exposed Current Visit: Yes Status: Acute Code(s): L97.912 - NON-PRS CHR ULC UNSP PRT OF R LOW LEG W FAT LAYER EXPOSED SNOMED Code(s): 19487322
[2024-05-01] MEDS ORDERED: IPRATROPIUM-ALBUTEROL 3 ML NEB INHALATION SCH (12:00)
[2024-05-01 12:04] LABS: Glucose,Whole Blood 169 mg/dL (70-110)
[2024-05-01] MEDS: INSULIN ASPART (NovoLOG) 100 UNIT/ML VIAL SQ SCH (12:16)
[2024-05-01] MEDS: HYDROmorphone 2 MG/ML 1 ML SYRINGE IVP STA (14:42)
--- NOTE | 2024-05-01 14:49 | P.GSCN ---
History of Present Illness History of present illness: 59-year-old gentleman patient came to the emergency room with a history of marked swelling redness and pain in the right lower extremity. Was seen on the last admission he had a piece of glass in his right heel which was removed which is healed patient right lower EXTR extra extremity has some cellulitis with some brawny induration of both lower extremity. There is a fluctuation and ten derness noted on the dorsum aspect of the lower colon area. Patient also has a right foot big toe superficial wound with slight redness and swelling Medical history history of obesity COPD Chest examination patient has crackles at the both lungs patient on oxygen Knoop. Second sound present Abdomen protuberant no peritoneal sign noted Vascular femorals are 1+ PT DP not palpable patient has some venous hypertension with cellulitis involving the both lower extremity. 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 History of Any Multi-Drug Resistant Organisms: MRSA Year Discovered:: 11/15/22 MDRO Source:: Left Leg Past Surgical History: Hernia Repair, Joint Replacement, Orthopedic Surgery Additional Past Surgical History / Comment(s): RT ARMAND, rt foot SX, Past Anesthesia/Blood Transfusion Reactions: No Reported Reaction Past Psychological History: Depression Smoking Status: Former smoker Past Alcohol Use History: None Reported Past Drug Use History: None Reported - Past Family History Mother Family Medical History: No Reported History Medications and Allergies Home Medications Medication Instructions Recorded Confirmed Type hydrOXYzine pamoate [Vistaril] 50 mg PO HS PRN 07/09/22 05/01/24 History Atorvastatin [Lipitor] 10 mg PO HS 08/01/22 05/01/24 History Dapagliflozin Propanediol [Farxiga] 10 mg PO DAILY 30 Days #30 tab 09/10/22 05/01/24 Rx busPIRone HCl [Buspar] 5 mg PO TID 30 Days #90 tab 09/10/22 05/01/24 Rx Apixaban [Eliquis] 5 mg PO BID 12/12/23 05/01/24 History Finasteride [Proscar] 5 mg PO DAILY 12/12/23 05/01/24 History Sertraline [Zoloft] 50 mg PO DAILY 12/12/23 05/01/24 History Albuterol Sulfate [Ventolin HFA] 1 puff INHALATION RT-BID 04/04/24 05/01/24 History ALPRAZolam [Xanax] 0.25 mg PO TID #6 tab 04/22/24 05/01/24 Rx Amiodarone [Cordarone] 400 mg PO BID tab 04/22/24 05/01/24 Rx Budesonide-Formot 160-4.5 Mcg 2 puff INHALATION RT-BID each 04/22/24 05/01/24 Rx [Symbicort 160-4.5 Mcg Inhaler] Calcium Carbonate [Tums] 1,000 mg PO QID PRN tab 04/22/24 05/01/24 Rx Insulin Detemir (Levemir) [Levemir] 15 unit SQ BID@0700,2100 each 04/22/24 05/01/24 Rx Ipratropium-Albuterol Nebulize 3 ml INHALATION RT-Q2H PRN each 04/22/24 05/01/24 Rx [Duoneb 0.5 mg-3 mg/3 ml Soln] Ipratropium-Albuterol Nebulize 3 ml INHALATION RT-QID each 04/22/24 05/01/24 Rx [Duoneb 0.5 mg-3 mg/3 ml Soln] Metoprolol Tartrate [Lopressor] 150 mg PO BID tab 04/22/24 05/01/24 Rx Pantoprazole [Protonix] 40 mg PO AC-BID tab 04/22/24 05/01/24 Rx Pregabalin [Lyrica] 150 mg PO BID #6 cap 04/22/24 05/01/24 Rx Spironolactone [Aldactone] 12.5 mg PO DAILY tab 04/22/24 05/01/24 Rx diphenhydrAMINE [Benadryl] 25 mg PO BID PRN cap 04/22/24 05/01/24 Rx predniSONE See Taper PO DIRECTED #30 tab 04/22/24 05/01/24 Rx 0.9 % Sodium Chloride [Sodium 10 ml IV BID 05/01/24 05/01/24 History Chloride Flush] Acetaminophen [Tylenol] 650 mg PO Q6H PRN 05/01/24 05/01/24 History DAPTOmycin [Cubicin] 450 mg IVPB Q24HR 05/01/24 05/01/24 History HYDROcodone/APAP 7.5-325MG [[place] 1 tab PO Q6HR PRN 05/01/24 05/01/24 History 7.5-325] INSULIN ASPART (NovoLOG) [NovoLOG See Protocol SQ ACHS 05/01/24 05/01/24 History (formulary)] Naloxone HCl [Narcan] 4 mg NASAL DIRECTED PRN 05/01/24 05/01/24 History Prochlorperazine [Compazine] 10 mg PO Q8H PRN 05/01/24 05/01/24 History Tamsulosin [Flomax] 0.4 mg PO DAILY 05/01/24 05/01/24 History Torsemide [Demadex] 10 mg PO DAILY 05/01/24 05/01/24 History oxyCODONE-APAP 10-325MG [Percocet 1 tab PO Q4HR PRN 05/01/24 05/01/24 History 10-325 mg] Allergies Allergy/AdvReac Type Severity Reaction Status Date / Time No Known Allergies Allergy Verified 05/01/24 09:34 Surgical - Exam Vital Signs Temp Pulse Resp BP Pulse Ox 103.2 F H 128 H 20 122/72 95 04/30/24 22:13 04/30/24 22:13 04/30/24 22:13 04/30/24 22:13 04/30/24 22:13 Results - Labs 04/30/24 22:44 04/30/24 22:44 Abnormal Lab Results - Last 24 Hours (Table) 04/30/24 04/30/24 05/01/24 Range/Units 22:44 22:44 10:05 RDW 16.0 H (11.5-15.5) % Lymphocytes # 0.3 L (1.0-4.8) k/uL Sodium 135 L (137-145) mmol/L Potassium 5.4 H (3.5-5.1) mmol/L Chloride 93 L (98-107) mmol/L Carbon Dioxide 35 H (22-30) mmol/L BUN 37 H (9-20) mg/dL Creatinine 1.28 H (0.66-1.25) mg/dL Glucose 125 H (74-99) mg/dL POC Glucose (mg/dL) (70-110) mg/dL Calcium 8.0 L (8.4-10.2) mg/dL Albumin 3.3 L (3.5-5.0) g/dL Urine Protein 1+ H (Negative) Urine Glucose (UA) 4+ H (Negative) Urine Blood Small H (Negative) Ur Leukocyte Esterase Small H (Negative) Urine WBC 52 H (0-5) /hpf Urine Bacteria Rare H (None) /hpf 05/01/24 Range/Units 12:03 RDW (11.5-15.5) % Lymphocytes # (1.0-4.8) k/uL Sodium (137-145) mmol/L Potassium (3.5-5.1) mmol/L Chloride (98-107) mmol/L Carbon Dioxide (22-30) mmol/L BUN (9-20) mg/dL Creatinine (0.66-1.25) mg/dL Glucose (74-99) mg/dL POC Glucose (mg/dL) 169 H (70-110) mg/dL Calcium (8.4-10.2) mg/dL Albumin (3.5-5.0) g/dL Urine Protein (Negative) Urine Glucose (UA) (Negative) Urine Blood (Negative) Ur Leukocyte Esterase (Negative) Urine WBC (0-5) /hpf Urine Bacteria (None) /hpf Diabetes panel 04/30/24 Range/Units 22:44 Sodium 135 L (137-145) mmol/L Potassium 5.4 H (3.5-5.1) mmol/L Chloride 93 L (98-107) mmol/L Carbon Dioxide 35 H (22-30) mmol/L BUN 37 H (9-20) mg/dL Creatinine 1.28 H (0.66-1.25) mg/dL Glucose 125 H (74-99) mg/dL Calcium 8.0 L (8.4-10.2) mg/dL AST 31 (17-59) U/L ALT 31 (4-49) U/L Alkaline Phosphatase 108 (38-126) U/L Total Protein 6.3 (6.3-8.2) g/dL Albumin 3.3 L (3.5-5.0) g/dL Calcium panel 04/30/24 Range/Units 22:44 Calcium 8.0 L (8.4-10.2) mg/dL Albumin 3.3 L (3.5-5.0) g/dL Pituitary panel 04/30/24 Range/Units 22:44 Sodium 135 L (137-145) mmol/L Potassium 5.4 H (3.5-5.1) mmol/L Chloride 93 L (98-107) mmol/L Carbon Dioxide 35 H (22-30) mmol/L BUN 37 H (9-20) mg/dL Creatinine 1.28 H (0.66-1.25) mg/dL Glucose 125 H (74-99) mg/dL Calcium 8.0 L (8.4-10.2) mg/dL Adrenal panel 04/30/24 Range/Units 22:44 Sodium 135 L (137-145) mmol/L Potassium 5.4 H (3.5-5.1) mmol/L Chloride 93 L (98-107) mmol/L Carbon Dioxide 35 H (22-30) mmol/L BUN 37 H (9-20) mg/dL Creatinine 1.28 H (0.66-1.25) mg/dL Glucose 125 H (74-99) mg/dL Calcium 8.0 L (8.4-10.2) mg/dL Total Bilirubin 1.0 (0.2-1.3) mg/dL AST 31 (17-59) U/L ALT 31 (4-49) U/L Alkaline Phosphatase 108 (38-126) U/L Total Protein 6.3 (6.3-8.2) g/dL Albumin 3.3 L (3.5-5.0) g/dL
--- NOTE | 2024-05-01 14:52 | P.PCN ---
Description of Procedure: Preop diagnosis is abscess right lower extremity colon area with some fluctuation and tenderness Postop the same Procedure right leg was prepped and 1% lidocaine for infiltrated a cruciate incision was made at the anterior aspect of the colon about 1 cm we noticed that there was a pus and old clot came out are all removed and a deep culture was taken which was sent for aerobic anaerobic all the clots were removed and also there was some pus noted wound was irrigated with saline and packed with the silver rope patient also had some cellulitis of the lower extremity will place in cream and compression wrap with 2 pillow elevation requesting ID consult for IV antibiotic tarted the procedure well
--- NOTE | 2024-05-01 15:50 | P.HPIM ---
History of Present Illness H&P Date: 05/01/24 This is a 59-year-old male who presented to the emergency department from [facility] with increasing right lower extremity redness with concerns of worsening cellulitis with failure of outpatient treatment. Patient was recently hospitalized with prolonged hospitalization for CHF and COPD exacerbation also noted to have right heel foreign body that was removed and right lower extremity cellulitis showing MRSA and was sent with a PICC line and IV antibiotics. Per [facility]CF patient has removed a few of the IVs and was sent here for worsening cellulitis. On admission chest x-ray shows cardiomegaly with patchy right basilar opacity favoring atelectasis with an improved left basilar acute infiltrate and no acute infiltrate noted. Clinically patient appears volume overloaded with acute CHF exacerbation. BNP mildly elevated at 6060. Patient presented to the hospital with no white count, hemoglobin was stable, sodium 135 with a potassium of 5.4, creatinine 1.28 and chronically has CKD. Potassium chronically elevated and will hold Aldactone for now and also recommend low potassium diet. Patient needs to be more compliant with strict fluid restrictions to manage his CHF. Patient also uses BiPAP at night and will rearrange to receive BiPAP and his chronic O2 during the day. Patient is being resumed on antibiotics with infectious disease on consult and also vascular surgery Dr. Matta for further evaluation of this right lower extremity. REVIEW OF SYSTEMS: CONSTITUTIONAL: No fever, no malaise, no fatigue. HEENT: No recent visual problems or hearing problems. Denied any sore throat. CARDIOVASCULAR: No chest pain, orthopnea, PND, no palpitations, no syncope. PULMONARY: No shortness of breath, no cough, no hemoptysis. GASTROINTESTINAL: No diarrhea, no nausea, no vomiting, no abdominal pain. NEUROLOGICAL: No headaches, no weakness, no numbness. HEMATOLOGICAL: Denies any bleeding or petechiae. GENITOURINARY: Denies any burning micturition, frequency, or urgency. MUSCULOSKELETAL/RHEUMATOLOGICAL: Denies any joint pain, swelling, or any muscle pain. ENDOCRINE: Denies any polyuria or polydipsia. The rest of the 14-point review of systems is negative. PHYSICAL EXAMINATION: GENERAL: The patient is alert and oriented x3, not in any acute distress. Well developed, well nourished. HEENT: Pupils are round and equally reacting to light. EOMI. No scleral icterus. No conjunctival pallor. Normocephalic, atraumatic. No pharyngeal erythema. No thyromegaly. CARDIOVASCULAR: S1 and S2 present. No murmurs, rubs, or gallops. PULMONARY: Chest is clear to auscultation, no wheezing or crackles. ABDOMEN: Soft, nontender, nondistended, normoactive bowel sounds. No palpable organomegaly. MUSCULOSKELETAL: No joint swelling or deformity. EXTREMITIES: No cyanosis, clubbing, or pedal edema. NEUROLOGICAL: Gross neurological examination did not reveal any focal deficits. SKIN: No rashes. Assessment: Right lower extremity cellulitis with abscess formation, failure of outpatient treatment Recent hospitalization with right lower extremity debridement and cultures growing MRSA, was [facility] to [facility] with a PICC line and IV antibiotic therapy Chronic hypoxic respiratory failure secondary to CHF and COPD CHF, preserved EF, acute exacerbation. Most recent EF was 60 to 65% Hypokalemia History of chronic kidney disease stage IIIa Hypertension history Persistent atrial fibrillation with recent cardioversion of 04/08/2024 Morbid obesity with a BMI of 47.4 Obstructive sleep apnea, noncompliant with CPAP outpatient GI prophylaxis DVT prophylaxis Full code Plan: Patient was started on vancomycin and Zosyn and will resume daptomycin and appreciate input and recommendations from infectious disease Vascular surgery consulted for possible concerns of abscess formation on the right colon Home medications reviewed and resumed as appropriate Will hold Aldactone as patient continues to have hyperkalemia. Will follow-up with repeat labs recommend low potassium diet patient is to continue with fluid restrictions and compliance. Patient is extremely noncompliant with medications and treatments Will resume BiPAP along with DuoNebs will discuss with infectious disease and vascular surgery regarding discharge planning and treatment plan moving forward The impression and plan of care has been dictated by Shayna Garcia, Nurse Practitioner as directed. Dr. Denisse MD I have performed a history and examination and MDM of this patient, discussed the same with the dictator, and agree with the dictator's assessment and plan as written ,documented as a scribe. Based on total visit time, I have performed more than 50% of the visit. 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 History of Any Multi-Drug Resistant Organisms: MRSA Date of last positivie culture/infection: 11/15/22 MDRO Source:: Left Leg Past Surgical History: Hernia Repair, Joint Replacement, Orthopedic Surgery Additional Past Surgical History / Comment(s): RT ARMAND, rt foot SX, Past Anesthesia/Blood Transfusion Reactions: No Reported Reaction Past Psychological History: Depression Smoking Status: Former smoker Past Alcohol Use History: None Reported Past Drug Use History: None Reported - Past Family History Mother Family Medical History: No Reported History Medications and Allergies Home Medications Medication Instructions Recorded Confirmed Type hydrOXYzine pamoate [Vistaril] 50 mg PO HS PRN 07/09/22 05/01/24 History Atorvastatin [Lipitor] 10 mg PO HS 08/01/22 05/01/24 History Dapagliflozin Propanediol [Farxiga] 10 mg PO DAILY 30 Days #30 tab 09/10/22 05/01/24 Rx busPIRone HCl [Buspar] 5 mg PO TID 30 Days #90 tab 09/10/22 05/01/24 Rx Apixaban [Eliquis] 5 mg PO BID 12/12/23 05/01/24 History Finasteride [Proscar] 5 mg PO DAILY 12/12/23 05/01/24 History Sertraline [Zoloft] 50 mg PO DAILY 12/12/23 05/01/24 History Albuterol Sulfate [Ventolin HFA] 1 puff INHALATION RT-BID 04/04/24 05/01/24 History ALPRAZolam [Xanax] 0.25 mg PO TID #6 tab 04/22/24 05/01/24 Rx Amiodarone [Cordarone] 400 mg PO BID tab 04/22/24 05/01/24 Rx Budesonide-Formot 160-4.5 Mcg 2 puff INHALATION RT-BID each 04/22/24 05/01/24 Rx [Symbicort 160-4.5 Mcg Inhaler] Calcium Carbonate [Tums] 1,000 mg PO QID PRN tab 04/22/24 05/01/24 Rx Insulin Detemir (Levemir) [Levemir] 15 unit SQ BID@0700,2100 each 04/22/24 05/01/24 Rx Ipratropium-Albuterol Nebulize 3 ml INHALATION RT-Q2H PRN each 04/22/24 05/01/24 Rx [Duoneb 0.5 mg-3 mg/3 ml Soln] Ipratropium-Albuterol Nebulize 3 ml INHALATION RT-QID each 04/22/24 05/01/24 Rx [Duoneb 0.5 mg-3 mg/3 ml Soln] Metoprolol Tartrate [Lopressor] 150 mg PO BID tab 04/22/24 05/01/24 Rx Pantoprazole [Protonix] 40 mg PO AC-BID tab 04/22/24 05/01/24 Rx Pregabalin [Lyrica] 150 mg PO BID #6 cap 04/22/24 05/01/24 Rx Spironolactone [Aldactone] 12.5 mg PO DAILY tab 04/22/24 05/01/24 Rx diphenhydrAMINE [Benadryl] 25 mg PO BID PRN cap 04/22/24 05/01/24 Rx predniSONE See Taper PO DIRECTED #30 tab 04/22/24 05/01/24 Rx 0.9 % Sodium Chloride [Sodium 10 ml IV BID 05/01/24 05/01/24 History Chloride Flush] Acetaminophen [Tylenol] 650 mg PO Q6H PRN 05/01/24 05/01/24 History DAPTOmycin [Cubicin] 450 mg IVPB Q24HR 05/01/24 05/01/24 History HYDROcodone/APAP 7.5-325MG [[place] 1 tab PO Q6HR PRN 05/01/24 05/01/24 History 7.5-325] INSULIN ASPART (NovoLOG) [NovoLOG See Protocol SQ ACHS 05/01/24 05/01/24 History (formulary)] Naloxone HCl [Narcan] 4 mg NASAL DIRECTED PRN 05/01/24 05/01/24 History Prochlorperazine [Compazine] 10 mg PO Q8H PRN 05/01/24 05/01/24 History Tamsulosin [Flomax] 0.4 mg PO DAILY 05/01/24 05/01/24 History Torsemide [Demadex] 10 mg PO DAILY 05/01/24 05/01/24 History oxyCODONE-APAP 10-325MG [Percocet 1 tab PO Q4HR PRN 05/01/24 05/01/24 History 10-325 mg] Allergies Allergy/AdvReac Type Severity Reaction Status Date / Time No Known Allergies Allergy Verified 05/01/24 09:34 Physical Exam Vitals: Vital Signs Temp Pulse Pulse Resp BP BP Pulse Ox 05/01/24 09:31 72 18 05/01/24 09:19 73 18 05/01/24 08:48 98.0 F 70 20 127/63 97 05/01/24 07:15 98.9 F 107 H 22 130/78 95 05/01/24 06:05 97.6 F 113 H 20 104/68 91 L 05/01/24 04:30 112 H 20 93 L 05/01/24 03:50 114 H 05/01/24 03:45 112 H 05/01/24 03:30 117 H 26 H 110/62 82 L 05/01/24 01:39 99.3 F 113 H 22 101/31 94 L 05/01/24 00:45 117 H 20 114/67 93 L 05/01/24 00:17 100.4 F H 112 H 20 114/67 89 L 04/30/24 23:16 102.7 F H 124 H 20 101/62 95 04/30/24 22:13 103.2 F H 128 H 20 122/72 95 Intake and Output 04/30/24 05/01/24 05/01/24 22:59 06:59 14:59 Output Total 650 1000 Balance -650 -1000 Output: Urine 650 1000 Other: Weight 162.84 kg 162.84 kg Results CBC & Chem 7: 04/30/24 22:44 05/01/24 13:57 Labs: Abnormal Lab Results - Last 24 Hours (Table) 04/30/24 04/30/24 Range/Units 22:44 22:44 RDW 16.0 H (11.5-15.5) % Lymphocytes # 0.3 L (1.0-4.8) k/uL Sodium 135 L (137-145) mmol/L Potassium 5.4 H (3.5-5.1) mmol/L Chloride 93 L (98-107) mmol/L Carbon Dioxide 35 H (22-30) mmol/L BUN 37 H (9-20) mg/dL Creatinine 1.28 H (0.66-1.25) mg/dL Glucose 125 H (74-99) mg/dL Calcium 8.0 L (8.4-10.2) mg/dL Albumin 3.3 L (3.5-5.0) g/dL Thrombosis Risk Factor Assmnt - DVT/VTE Prophylaxis DVT/VTE Prophylaxis: Pharmacologic Prophylaxis ordered - Choose All That Apply Any of the Below Risk Factors Present?: Yes Each Factor Represents 1 point: Obesity (BMI >25) Other Risk Factors: Yes Each Risk Factor Represents 2 Points: Age 61-74 years Thrombosis Risk Factor Assessment Total Risk Factor Score: 3 Thrombosis Risk Factor Assessment Level: Moderate Risk Assessment and Plan Time with Patient: Greater than 30
[2024-05-01] MEDS: SILVER sulfADIAZINE Cream 400 GM 1 APPLIC APPLIC TOPICAL SCH (15:52)
[2024-05-01] MEDS: DAPTOmycin 500 MG VIAL IVPB SCH (16:09)
[2024-05-01 16:48] LABS: Glucose,Whole Blood 254 mg/dL (70-110)
[2024-05-01] MEDS: SYMBICORT 160-4.5 MCG INHALER INHALATION SCH (19:54)
[2024-05-01] MEDS ORDERED: ALBUTEROL HFA INHALER INHALATION SCH (20:00)
[2024-05-01 20:58] LABS: Glucose,Whole Blood 188 mg/dL (70-110)
[2024-05-01] MEDS: HYDROmorphone 0.5 MG/0.5 ML SYRINGE IVP PRN (21:19)
[2024-05-01] MEDS: ATORVASTATIN 10 MG TAB PO SCH (21:21)
[2024-05-02 06:45] LABS: Glucose,Whole Blood 140 mg/dL (70-110)
[2024-05-02 08:50] LABS: African American GFR (CKD) 83 (>60 ml/min/1.73 sqM); Blood Urea Nitrogen 32 mg/dL (9-20); Calcium 7.8 mg/dL (8.4-10.2); Chloride 99 mmol/L (98-107); Glucose 150 mg/dL (74-99); Non-African American GFR(CKD) 72 (>60 ml/min/1.73 sqM); Potassium 4.4 mmol/L (3.5-5.1); Sodium 139 mmol/L (137-145)
[2024-05-02 08:57] LABS: Anion Gap 4 mmol/L
[2024-05-02 08:59] LABS: Carbon Dioxide 36 mmol/L (22-30)
--- NOTE | 2024-05-02 09:41 | P.CONS ---
History of Present Illness - Reason for Consult Consult date: 05/01/24 Right leg cellulitis, sepsis Requesting physician: John Pearce - Chief Complaint Fever not feeling well x 1 day - History of Present Illness Patient is a 49-year-old male with a past medical history significant for atrial fibrillation heart failure COPD hypertension hyperlipidemia sleep apnea recent admission to the hospital patient did have a right second toe infected callus requiring debridement with the foreign body in the right heel area culture positive for MRSA and has developed significant cellulitis to right lower extremity patient was treated with daptomycin and because of extensive infection he was sent to the custodial on IV antibiotic therapy apparently patient mention he was unable to get his IV antibiotic therapy at that facility apparently he did have a problem with the IV access but the patient has been sent back to the ER concerning for fever that apparently started the day of presentation to the hospital patient has been complaining of increasing swelling to the right lower extremity however no further drainage pain to the right leg is mostly sharp moderate intensity without radiation patient denies having any headache or URI symptoms has been complaining of some shortness of breath but no chest pain no cough abdominal pain or diarrhea on presentation to the hospital he did have a fever of 103.2 degrees for night patient was tachycardic but not hypotensive and hypoxic currently on a 4 L nasal cannula oxygen patient did have white count of 3.8 BUN and creatinine has been mildly elevated liver isms are normal urine is without pyuria patient did have a chest x-ray cardiomegaly with patchy right basilar opacity favoring atelectasis no new acute infiltrate patient was started on daptomycin and Zosyn infectious disease was consulted for further management of antibiotic therapy Review of Systems Positive point and negatives has been mentioned in the HPI, complete review of systems was performed and all other systems are negative 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 History of Any Multi-Drug Resistant Organisms: MRSA Year Discovered:: 11/15/22 MDRO Source:: Left Leg Past Surgical History: Hernia Repair, Joint Replacement, Orthopedic Surgery Additional Past Surgical History / Comment(s): RT ARMAND, rt foot SX, Past Anesthesia/Blood Transfusion Reactions: No Reported Reaction Past Psychological History: Depression Smoking Status: Former smoker Past Alcohol Use History: None Reported Past Drug Use History: None Reported - Past Family History Mother Family Medical History: No Reported History Medications and Allergies Home Medications Medication Instructions Recorded Confirmed Type hydrOXYzine pamoate [Vistaril] 50 mg PO HS PRN 07/09/22 05/01/24 History Atorvastatin [Lipitor] 10 mg PO HS 08/01/22 05/01/24 History Dapagliflozin Propanediol [Farxiga] 10 mg PO DAILY 30 Days #30 tab 09/10/22 05/01/24 Rx busPIRone HCl [Buspar] 5 mg PO TID 30 Days #90 tab 09/10/22 05/01/24 Rx Apixaban [Eliquis] 5 mg PO BID 12/12/23 05/01/24 History Finasteride [Proscar] 5 mg PO DAILY 12/12/23 05/01/24 History Sertraline [Zoloft] 50 mg PO DAILY 12/12/23 05/01/24 History Albuterol Sulfate [Ventolin HFA] 1 puff INHALATION RT-BID 04/04/24 05/01/24 History ALPRAZolam [Xanax] 0.25 mg PO TID #6 tab 04/22/24 05/01/24 Rx Amiodarone [Cordarone] 400 mg PO BID tab 04/22/24 05/01/24 Rx Budesonide-Formot 160-4.5 Mcg 2 puff INHALATION RT-BID each 04/22/24 05/01/24 Rx [Symbicort 160-4.5 Mcg Inhaler] Calcium Carbonate [Tums] 1,000 mg PO QID PRN tab 04/22/24 05/01/24 Rx Insulin Detemir (Levemir) [Levemir] 15 unit SQ BID@0700,2100 each 04/22/24 05/01/24 Rx Ipratropium-Albuterol Nebulize 3 ml INHALATION RT-Q2H PRN each 04/22/24 05/01/24 Rx [Duoneb 0.5 mg-3 mg/3 ml Soln] Ipratropium-Albuterol Nebulize 3 ml INHALATION RT-QID each 04/22/24 05/01/24 Rx [Duoneb 0.5 mg-3 mg/3 ml Soln] Metoprolol Tartrate [Lopressor] 150 mg PO BID tab 04/22/24 05/01/24 Rx Pantoprazole [Protonix] 40 mg PO AC-BID tab 04/22/24 05/01/24 Rx Pregabalin [Lyrica] 150 mg PO BID #6 cap 04/22/24 05/01/24 Rx Spironolactone [Aldactone] 12.5 mg PO DAILY tab 04/22/24 05/01/24 Rx diphenhydrAMINE [Benadryl] 25 mg PO BID PRN cap 04/22/24 05/01/24 Rx predniSONE See Taper PO DIRECTED #30 tab 04/22/24 05/01/24 Rx 0.9 % Sodium Chloride [Sodium 10 ml IV BID 05/01/24 05/01/24 History Chloride Flush] Acetaminophen [Tylenol] 650 mg PO Q6H PRN 05/01/24 05/01/24 History DAPTOmycin [Cubicin] 450 mg IVPB Q24HR 05/01/24 05/01/24 History HYDROcodone/APAP 7.5-325MG [[place] 1 tab PO Q6HR PRN 05/01/24 05/01/24 History 7.5-325] INSULIN ASPART (NovoLOG) [NovoLOG See Protocol SQ ACHS 05/01/24 05/01/24 History (formulary)] Naloxone HCl [Narcan] 4 mg NASAL DIRECTED PRN 05/01/24 05/01/24 History Prochlorperazine [Compazine] 10 mg PO Q8H PRN 05/01/24 05/01/24 History Tamsulosin [Flomax] 0.4 mg PO DAILY 05/01/24 05/01/24 History Torsemide [Demadex] 10 mg PO DAILY 05/01/24 05/01/24 History oxyCODONE-APAP 10-325MG [Percocet 1 tab PO Q4HR PRN 05/01/24 05/01/24 History 10-325 mg] Allergies Allergy/AdvReac Type Severity Reaction Status Date / Time No Known Allergies Allergy Verified 05/01/24 09:34 Physical Exam Vitals: Vital Signs Temp Pulse Pulse Resp BP BP Pulse Ox 05/01/24 09:31 72 18 05/01/24 09:19 73 18 05/01/24 08:48 98.0 F 70 20 127/63 97 05/01/24 07:15 98.9 F 107 H 22 130/78 95 05/01/24 06:05 97.6 F 113 H 20 104/68 91 L 05/01/24 04:30 112 H 20 93 L 05/01/24 03:50 114 H 05/01/24 03:45 112 H 05/01/24 03:30 117 H 26 H 110/62 82 L 05/01/24 01:39 99.3 F 113 H 22 101/31 94 L 05/01/24 00:45 117 H 20 114/67 93 L 05/01/24 00:17 100.4 F H 112 H 20 114/67 89 L 04/30/24 23:16 102.7 F H 124 H 20 101/62 95 04/30/24 22:13 103.2 F H 128 H 20 122/72 95 Intake and Output 04/30/24 05/01/24 05/01/24 22:59 06:59 14:59 Output Total 650 1000 Balance -650 -1000 Output: Urine 650 1000 Other: Weight 162.84 kg 162.84 kg GENERAL DESCRIPTION: Middle-aged male up in bed, no distress. No tachypnea or accessory muscle of respiration use. HEENT: Shows Pallor , no scleral icterus. Oral mucous membrane is dry. NECK: Trachea central, no thyromegaly. LUNGS: Unlabored breathing. Decreased breath sound the base HEART: S1, S2, regular rate and rhythm. No loud murmur ABDOMEN: Soft, mild distention but no tenderness EXTREMITIES: Right lower extremity with a area of swelling induration to the right anterior leg but no purulent drainage right second toe plantar wound but no slough tissue SKIN: No rash, no masses palpable. NEUROLOGICAL: The patient is awake, alert, oriented x3, mood and affect normal. Results CBC & Chem 7: 04/30/24 22:44 05/02/24 08:27 Labs: Abnormal Lab Results - Last 24 Hours (Table) 04/30/24 04/30/24 05/01/24 Range/Units 22:44 22:44 10:05 RDW 16.0 H (11.5-15.5) % Lymphocytes # 0.3 L (1.0-4.8) k/uL Sodium 135 L (137-145) mmol/L Potassium 5.4 H (3.5-5.1) mmol/L Chloride 93 L (98-107) mmol/L Carbon Dioxide 35 H (22-30) mmol/L BUN 37 H (9-20) mg/dL Creatinine 1.28 H (0.66-1.25) mg/dL Glucose 125 H (74-99) mg/dL Calcium 8.0 L (8.4-10.2) mg/dL Albumin 3.3 L (3.5-5.0) g/dL Urine Protein 1+ H (Negative) Urine Glucose (UA) 4+ H (Negative) Urine Blood Small H (Negative) Ur Leukocyte Esterase Small H (Negative) Urine WBC 52 H (0-5) /hpf Urine Bacteria Rare H (None) /hpf Assessment and Plan (1) Sepsis Current Visit: Yes Status: Acute Code(s): A41.9 - SEPSIS, UNSPECIFIED ORGANISM SNOMED Code(s): 22931442 (2) Abscess of right leg Current Visit: Yes Status: Acute Code(s): L02.415 - CUTANEOUS ABSCESS OF RIGHT LOWER LIMB SNOMED Code(s): 446529064 (3) Cellulitis of right lower extremity Current Visit: Yes Status: Acute Code(s): L03.115 - CELLULITIS OF RIGHT LOWER LIMB SNOMED Code(s): 74554902152203623 Plan: 1patient presented to hospital with sepsis in this patient who did have a fever at tachycardia source is likely right lower extremity cellulitis and was concern for an abscess with a previous history of MRSA depression could be related to MRSA and less likely gram-negative infection 2-await vascular surgery evaluation for drainage and deep culture 3-patient with renal insufficiency high risk of nephrotoxicity from vancomycin 4-patient to continue with the daptomycin and Zosyn while waiting for the culture to finalize We will follow on clinical condition and cultures to further adjust medication if needed Thank you for this consultation we will follow the patient along with you Dictation was produced using [employer] dictation software. please excuse any grammatical, word or spelling errors.
--- NOTE | 2024-05-02 10:07 | P.PN ---
Progress Note - Text 59-year-old gentleman patient has had a infected hematoma on right lower extremity which was drained and did the deep culture today will change dressing with silver rope and patient also has a cellulitis of the lower extremity which is getting better we have been using Silvadene cream the dressing should be changed every 48 hours patient is responding to the local wound care continue with IV antibiotic under care of infectious disease
[2024-05-02 11:41] LABS: Glucose,Whole Blood 293 mg/dL (70-110)
--- NOTE | 2024-05-02 14:12 | P.PN ---
Subjective Progress Note Date: 05/02/24 This is a 59-year-old male who presented to the emergency department from [facility] with increasing right lower extremity redness with concerns of worsening cellulitis with failure of outpatient treatment. Patient was recently hospitalized with prolonged hospitalization for CHF and COPD exacerbation also noted to have right heel foreign body that was removed and right lower extremity cellulitis showing MRSA and was sent with a PICC line and IV antibiotics. Per ECF patient has removed a few of the IVs and was sent here for worsening cellulitis. On admission chest x-ray shows cardiomegaly with patchy right basilar opacity favoring atelectasis with an improved left basilar acute infiltrate and no acute infiltrate noted. Clinically patient appears volume overloaded with acute CHF exacerbation. BNP mildly elevated at 6060. Patient presented to the hospital with no white count, hemoglobin was stable, sodium 135 with a potassium of 5.4, creatinine 1.28 and chronically has CKD. Potassium chronically elevated and will hold Aldactone for now and also recommend low potassium diet. Patient needs to be more compliant with strict fluid restrictions to manage his CHF. Patient also uses BiPAP at night and will rearrange to receive BiPAP and his chronic O2 during the day. Patient is being resumed on antibiotics with infectious disease on consult and also vascular surgery Dr. Matta for further evaluation of this right lower extremity. 05/02/2024 Patient is evaluated today in follow-up in the medical floor. He is sitting up at the edge of the bed. He underwent I&D of the right lower extremity abscess today and deep tissue cultures were sent. He continues on IV vancomycin and IV daptomycin and IV Zosyn at this time. He is continued on his oral diuretics. Patient is concerned with his fluid restriction and upset states that he will so if it if he does not get more fluid. Preliminary wound cultures so far showing gram-negative bacilli. Sodium level 139, potassium 4.4, BUN of 32, creatinine of 1.11. REVIEW OF SYSTEMS: CONSTITUTIONAL: No fever, no malaise, no fatigue. HEENT: No recent visual problems or hearing problems. Denied any sore throat. CARDIOVASCULAR: No chest pain, orthopnea, PND, no palpitations, no syncope. PULMONARY: No shortness of breath, no cough, no hemoptysis. GASTROINTESTINAL: No diarrhea, no nausea, no vomiting, no abdominal pain. NEUROLOGICAL: No headaches, no weakness, no numbness. PHYSICAL EXAMINATION: GENERAL: The patient is alert and oriented x3, not in any acute distress. Well developed, well nourished. HEENT: Pupils are round and equally reacting to light. EOMI. No scleral icterus. No conjunctival pallor. Normocephalic, atraumatic. No pharyngeal erythema. No thyromegaly. CARDIOVASCULAR: S1 and S2 present. No murmurs, rubs, or gallops. PULMONARY: Chest is clear to auscultation, no wheezing or crackles. ABDOMEN: Soft, nontender, nondistended, normoactive bowel sounds. No palpable organomegaly. MUSCULOSKELETAL: No joint swelling or deformity. EXTREMITIES: No cyanosis, clubbing, or pedal edema. NEUROLOGICAL: Gross neurological examination did not reveal any focal deficits. SKIN: No rashes. Assessment: Right lower extremity cellulitis with abscess formation, failure of outpatient treatment Recent hospitalization with right lower extremity debridement and cultures growing MRSA, was sent to [facility] with a PICC line and IV antibiotic therapy Chronic hypoxic respiratory failure secondary to CHF and COPD CHF, preserved EF, acute exacerbation. Most recent EF was 60 to 65% Hypokalemia History of chronic kidney disease stage IIIa Hypertension history Persistent atrial fibrillation with recent cardioversion of 04/08/2024 Morbid obesity with a BMI of 47.4 Obstructive sleep apnea, noncompliant with CPAP outpatient GI prophylaxis DVT prophylaxis Full code Plan: Patient was started on vancomycin and Zosyn and will resume daptomycin and appreciate input and recommendations from infectious disease Vascular surgery consulted taking patient for an I&D of the right leg abscess today. Home medications reviewed and resumed as appropriate Will hold Aldactone as patient continues to have hyperkalemia. Will follow-up with repeat labs recommend low potassium diet is down to 4.4 today. patient is to continue with fluid restrictions and compliance. Patient is extremely noncompliant with medications and treatments Will resume BiPAP along with DuoNebs will discuss with infectious disease and vascular surgery regarding discharge planning and treatment plan moving forward He is on a 1200 cc fluid restriction and upset with this demanding more fluid. The impression and plan of care has been dictated by Meri Galvan, Nurse Practitioner as directed. Dr. Denisse MD I have performed a history and physical examination and medical decision making of this patient, discussed the same with the dictator, and agree with the dictators assessment and plan as written, documented as a scribe. Based on total visit time, I have performed more than 50% of this visit. Objective - Vital Signs Vital signs: Vital Signs Temp 97.5 F L 05/02/24 07:10 Pulse 86 05/02/24 09:21 Resp 18 05/02/24 07:10 BP 105/64 05/02/24 07:10 Pulse Ox 94 L 05/02/24 09:12 FiO2 50 05/02/24 05:35 Intake & Output 05/01/24 05/02/24 05/02/24 18:59 06:59 18:59 Intake Total 1180 Output Total 1000 1050 Balance -1000 -1050 1180 Intake: Intake, IV Titration 700 Amount DAPTOmycin 450 mg In 100 Sodium Chloride 0.9% 50 ml @ 100 mls/hr IVPB Q24H [facility] Rx#:[id number] Piperacillin-Tazobactam 3 100 .375 gm In Sodium Chloride 0.9% 100 ml @ 25 mls/hr IVPB Q8HR [facility] Rx# :[id number] Vancomycin 2,250 mg In 500 Sodium Chloride 0.9% 500 ml 500 ml @ 167 mls/hr IVPB Q16H [facility] Rx#: [id number] Oral 480 Output: Urine 1000 1050 Other: Voiding Method Toilet # Voids 4 - Labs CBC & Chem 7: 04/30/24 22:44 05/02/24 08:27 Labs: Abnormal Lab Results - Last 24 Hours (Table) 05/01/24 05/01/24 05/01/24 Range/Units 13:57 16:47 20:57 Potassium 5.3 H (3.5-5.1) mmol/L Carbon Dioxide (22-30) mmol/L BUN (9-20) mg/dL Glucose (74-99) mg/dL POC Glucose (mg/dL) 254 H 188 H (70-110) mg/dL Calcium (8.4-10.2) mg/dL 05/02/24 05/02/24 05/02/24 Range/Units 06:43 08:27 11:40 Potassium (3.5-5.1) mmol/L Carbon Dioxide 36 H (22-30) mmol/L BUN 32 H (9-20) mg/dL Glucose 150 H (74-99) mg/dL POC Glucose (mg/dL) 140 H 293 H (70-110) mg/dL Calcium 7.8 L (8.4-10.2) mg/dL Microbiology - Last 24 Hours (Table) 05/01/24 14:39 Gram Stain - Preliminary Leg - Right Wound Culture - Preliminary Gram Neg Bacilli 04/30/24 22:44 Blood Culture - Preliminary Blood Assessment and Plan Time with Patient: Less than 30
--- NOTE | 2024-05-02 14:49 | P.PN ---
Subjective Progress Note Date: 05/02/24 Principal diagnosis: Reason for follow-up is right leg abscess and cellulitis Patient is a 49-year-old male with a past medical history significant for atrial fibrillation heart failure COPD hypertension hyperlipidemia sleep apnea recent admission to the hospital patient did have a right second toe infected callus requiring debridement with the foreign body in the right heel area culture positive for MRSA and has developed significant cellulitis to right lower extremity presented back to the hospital with fever unable to get his antibiotics noticed to have right lower extremity abscess that has been drained by vascular surgery at the bedside on 05/01/2024. On today's evaluation that is 05/02/2024, Patient is afebrile patient is currently on 5 L nasal oxygen and complaining of some shortness of breath, the patient denies any chest pain or cough, the patient denies any nausea vomiting did not have any abdominal pain and no diarrhea, denies any worsening pain to the right leg wound. Patient did have a creatinine 1.11, cultures are currently pending Objective - Vital Signs Vital signs: Vital Signs Temp 97.5 F L 05/02/24 07:10 Pulse 86 05/02/24 09:21 Resp 18 05/02/24 07:10 BP 105/64 05/02/24 07:10 Pulse Ox 94 L 05/02/24 09:12 FiO2 50 05/02/24 05:35 Intake & Output 05/01/24 05/02/24 05/02/24 18:59 06:59 18:59 Intake Total 480 Output Total 1000 1050 Balance -1000 -1050 480 Intake: Oral 480 Output: Urine 1000 1050 Other: Voiding Method Toilet # Voids 4 - Exam GENERAL DESCRIPTION: Middle-age male up in bed in no distress RESPIRATORY SYSTEM: Unlabored breathing , decreased breath sounds at bases HEART: S1 S2 regular rate and rhythm , ABDOMEN: Soft , no tenderness EXTREMITIES: Right leg wound is currently dressed minimal drainage on the dressing - Labs CBC & Chem 7: 04/30/24 22:44 05/02/24 08:27 Labs: Abnormal Lab Results - Last 24 Hours (Table) 05/01/24 05/01/24 05/01/24 Range/Units 13:57 16:47 20:57 Potassium 5.3 H (3.5-5.1) mmol/L Carbon Dioxide (22-30) mmol/L BUN (9-20) mg/dL Glucose (74-99) mg/dL POC Glucose (mg/dL) 254 H 188 H (70-110) mg/dL Calcium (8.4-10.2) mg/dL 05/02/24 05/02/24 05/02/24 Range/Units 06:43 08:27 11:40 Potassium (3.5-5.1) mmol/L Carbon Dioxide 36 H (22-30) mmol/L BUN 32 H (9-20) mg/dL Glucose 150 H (74-99) mg/dL POC Glucose (mg/dL) 140 H 293 H (70-110) mg/dL Calcium 7.8 L (8.4-10.2) mg/dL Microbiology - Last 24 Hours (Table) 05/01/24 14:39 Gram Stain - Preliminary Leg - Right Wound Culture - Preliminary Gram Neg Bacilli 04/30/24 22:44 Blood Culture - Preliminary Blood Assessment and Plan (1) Sepsis Current Visit: Yes Status: Acute Code(s): A41.9 - SEPSIS, UNSPECIFIED ORGANISM SNOMED Code(s): 64992387 (2) Abscess of right leg Current Visit: Yes Status: Acute Code(s): L02.415 - CUTANEOUS ABSCESS OF RIGHT LOWER LIMB SNOMED Code(s): 974117763 (3) Cellulitis of right lower extremity Current Visit: Yes Status: Acute Code(s): L03.115 - CELLULITIS OF RIGHT LOWER LIMB SNOMED Code(s): 44460503682040252 Plan: 1patient presented to hospital with sepsis in this patient who did have a fever at tachycardia source is likely right lower extremity cellulitis and was concern for an abscess with a previous history of MRSA depression could be related to MRSA and less likely gram-negative infection 2-patient is status post vascular surgery evaluation and drainage of the abscess along with a culture 3-patient to continue with the daptomycin and Zosyn while waiting for the culture to finalize Dictation was produced using [email or web address] dictation software. please excuse any grammatical, word or spelling errors. Time with Patient: Less than 30
[2024-05-02 16:51] LABS: Glucose,Whole Blood 229 mg/dL (70-110)
[2024-05-02 19:15] LABS: Glucose,Whole Blood 184 mg/dL (70-110)
[2024-05-03 04:55] LABS: African American GFR (CKD) 73 (>60 ml/min/1.73 sqM); Anion Gap 1 mmol/L; Blood Urea Nitrogen 33 mg/dL (9-20); Calcium 7.9 mg/dL (8.4-10.2); Carbon Dioxide 30 mmol/L (22-30); Chloride 105 mmol/L (98-107); Glucose 125 mg/dL (74-99); Non-African American GFR(CKD) 63 (>60 ml/min/1.73 sqM); Sodium 136 mmol/L (137-145)
[2024-05-03 05:18] LABS: Potassium 5.7 mmol/L (3.5-5.1)
[2024-05-03 06:48] LABS: Glucose,Whole Blood 110 mg/dL (70-110)
[2024-05-03] MEDS: SODIUM ZIRCONIUM CYCLOSILICATE 10 GM PACKET PO SCH (10:01)
[2024-05-03 11:05] LABS: Glucose,Whole Blood 181 mg/dL (70-110)
--- NOTE | 2024-05-03 12:53 | P.PN ---
Subjective Progress Note Date: 05/03/24 This is a 59-year-old male who presented to the emergency department from [facility] with increasing right lower extremity redness with concerns of worsening cellulitis with failure of outpatient treatment. Patient was recently hospitalized with prolonged hospitalization for CHF and COPD exacerbation also noted to have right heel foreign body that was removed and right lower extremity cellulitis showing MRSA and was sent with a PICC line and IV antibiotics. Per ECF patient has removed a few of the IVs and was sent here for worsening cellulitis. On admission chest x-ray shows cardiomegaly with patchy right basilar opacity favoring atelectasis with an improved left basilar acute infiltrate and no acute infiltrate noted. Clinically patient appears volume overloaded with acute CHF exacerbation. BNP mildly elevated at 6060. Patient presented to the hospital with no white count, hemoglobin was stable, sodium 135 with a potassium of 5.4, creatinine 1.28 and chronically has CKD. Potassium chronically elevated and will hold Aldactone for now and also recommend low potassium diet. Patient needs to be more compliant with strict fluid restrictions to manage his CHF. Patient also uses BiPAP at night and will rearrange to receive BiPAP and his chronic O2 during the day. Patient is being resumed on antibiotics with infectious disease on consult and also vascular surgery Dr. Matta for further evaluation of this right lower extremity. 05/02/2024 Patient is evaluated today in follow-up in the medical floor. He is sitting up at the edge of the bed. He underwent I&D of the right lower extremity abscess today and deep tissue cultures were sent. He continues on IV vancomycin and IV daptomycin and IV Zosyn at this time. He is continued on his oral diuretics. Patient is concerned with his fluid restriction and upset states that he will so if it if he does not get more fluid. Preliminary wound cultures so far showing gram-negative bacilli. Sodium level 139, potassium 4.4, BUN of 32, creatinine of 1.11. 05/03/2024 Patient is evaluated today in follow up. Patient is resting comfortably. He is continued on 1200 fluid restriction. Sodium 136, potassium 5.7, BUN 33, creatinine 1.23. Wound culture of the right leg showing preliminary gram negative bacilli. He remains on IV daptomycin, vancomycin and zosyn. REVIEW OF SYSTEMS: CONSTITUTIONAL: No fever, no malaise, no fatigue. HEENT: No recent visual problems or hearing problems. Denied any sore throat. CARDIOVASCULAR: No chest pain, orthopnea, PND, no palpitations, no syncope. PULMONARY: No shortness of breath, no cough, no hemoptysis. GASTROINTESTINAL: No diarrhea, no nausea, no vomiting, no abdominal pain. NEUROLOGICAL: No headaches, no weakness, no numbness. PHYSICAL EXAMINATION: GENERAL: The patient is alert and oriented x3, not in any acute distress. Well developed, well nourished. HEENT: Pupils are round and equally reacting to light. EOMI. No scleral icterus. No conjunctival pallor. Normocephalic, atraumatic. No pharyngeal erythema. No thyromegaly. CARDIOVASCULAR: S1 and S2 present. No murmurs, rubs, or gallops. PULMONARY: Chest is clear to auscultation, no wheezing or crackles. ABDOMEN: Soft, nontender, nondistended, normoactive bowel sounds. No palpable organomegaly. MUSCULOSKELETAL: No joint swelling or deformity. EXTREMITIES: No cyanosis, clubbing, or pedal edema. NEUROLOGICAL: Gross neurological examination did not reveal any focal deficits. SKIN: No rashes. Assessment: Right lower extremity cellulitis with abscess formation, failure of outpatient treatment Recent hospitalization with right lower extremity debridement and cultures growing MRSA, was sent to [facility] with a PICC line and IV antibiotic therapy Chronic hypoxic respiratory failure secondary to CHF and COPD CHF, preserved EF, acute exacerbation. Most recent EF was 60 to 65% Hypokalemia History of chronic kidney disease stage IIIa Hypertension history Persistent atrial fibrillation with recent cardioversion of 04/08/2024 Morbid obesity with a BMI of 47.4 Obstructive sleep apnea, noncompliant with CPAP outpatient GI prophylaxis DVT prophylaxis Full code Plan: Patient was started on vancomycin and Zosyn and also on daptomycin and appreciate input and recommendations from infectious disease Vascular surgery following patient is postoperative I & D of the right leg. Will hold Aldactone as patient continues to have hyperkalemia. Will follow-up with repeat labs recommend low potassium diet and will give scheduled lokelma today. patient is to continue with fluid restrictions and compliance. Patient is extremely noncompliant with medications and treatments Will resume BiPAP along with DuoNebs He is on a 1200 cc fluid restriction and upset with this demanding more fluid. Repeat blood work tomorrow. The impression and plan of care has been dictated by Meri Galvan, Nurse Practitioner as directed. Dr. Denisse MD I have performed a history and physical examination and medical decision making of this patient, discussed the same with the dictator, and agree with the dictators assessment and plan as written, documented as a scribe. Based on total visit time, I have performed more than 50% of this visit. Objective - Vital Signs Vital signs: Vital Signs Temp 97.6 F 05/03/24 07:51 Pulse 80 05/03/24 12:06 Resp 16 05/03/24 07:51 BP 112/79 05/03/24 07:51 Pulse Ox 93 L 05/03/24 08:57 FiO2 50 05/02/24 05:35 Intake & Output 05/02/24 05/03/24 05/03/24 19:59 06:59 18:59 Intake Total Output Total Balance Intake: Intake, IV Titration Amount DAPTOmycin 450 mg In Sodium Chloride 0.9% 50 ml @ 100 mls/hr IVPB Q24H [facility]BI Rx#:[id number] Piperacillin-Tazobactam 3 .375 gm In Sodium Chloride 0.9% 100 ml @ 25 mls/hr IVPB Q8HR [facility]BI Rx# :[id number] Vancomycin 2,250 mg In Sodium Chloride 0.9% 500 ml 500 ml @ 167 mls/hr IVPB Q16H OBI Rx#: [id number] Oral Output: Urine Other: # Voids - Labs CBC & Chem 7: 04/30/24 22:44 05/03/24 03:47 Labs: Abnormal Lab Results - Last 24 Hours (Table) 05/02/24 05/02/24 05/03/24 Range/Units 16:50 19:12 03:47 Sodium 136 L (137-145) mmol/L Potassium 5.7 H (3.5-5.1) mmol/L BUN 33 H (9-20) mg/dL Glucose 125 H (74-99) mg/dL POC Glucose (mg/dL) 229 H 184 H (70-110) mg/dL Calcium 7.9 L (8.4-10.2) mg/dL 05/03/24 Range/Units 11:03 Sodium (137-145) mmol/L Potassium (3.5-5.1) mmol/L BUN (9-20) mg/dL Glucose (74-99) mg/dL POC Glucose (mg/dL) 181 H (70-110) mg/dL Calcium (8.4-10.2) mg/dL Microbiology - Last 24 Hours (Table) 05/01/24 14:39 Anaerobic Culture - Preliminary Leg - Right 04/30/24 22:44 Blood Culture - Preliminary Blood 05/01/24 14:39 Gram Stain - Preliminary Leg - Right Wound Culture - Preliminary Gram Neg Bacilli Assessment and Plan Time with Patient: Less than 30
--- NOTE | 2024-05-03 14:45 | P.PN ---
Subjective Progress Note Date: 05/03/24 Principal diagnosis: Reason for follow-up is right leg abscess and cellulitis Patient is a 49-year-old male with a past medical history significant for atrial fibrillation heart failure COPD hypertension hyperlipidemia sleep apnea recent admission to the hospital patient did have a right second toe infected callus requiring debridement with the foreign body in the right heel area culture positive for MRSA and has developed significant cellulitis to right lower extremity presented back to the hospital with fever unable to get his antibiotics noticed to have right lower extremity abscess that has been drained by vascular surgery at the bedside on 05/01/2024. On today's evaluation that is 05/03/2024, patient has been afebrile, patient is currently on 4 L nasal cannula oxygen complaining of some shortness of breath no chest pain or cough no abdominal pain or any worsening pain to the right lower extremity. Patient did have a creatinine 1.23 local culture currently growing gram-negative bacilli Objective - Vital Signs Vital signs: Vital Signs Temp 97.6 F 05/03/24 07:51 Pulse 80 05/03/24 12:06 Resp 16 05/03/24 08:00 BP 112/79 05/03/24 07:51 Pulse Ox 93 L 05/03/24 08:57 FiO2 50 05/02/24 05:35 Intake & Output 05/02/24 05/03/24 05/03/24 19:59 06:59 18:59 Intake Total 600 Output Total Balance 600 Intake: Intake, IV Titration Amount DAPTOmycin 450 mg In Sodium Chloride 0.9% 50 ml @ 100 mls/hr IVPB Q24H OBI Rx#:[id number] Piperacillin-Tazobactam 3 .375 gm In Sodium Chloride 0.9% 100 ml @ 25 mls/hr IVPB Q8HR OBI Rx# :[id number] Vancomycin 2,250 mg In Sodium Chloride 0.9% 500 ml 500 ml @ 167 mls/hr IVPB Q16H OBI Rx#: [id number] Oral 600 Output: Urine Other: Voiding Method Toilet # Voids - Exam GENERAL DESCRIPTION: Middle-age male up in bed in no distress RESPIRATORY SYSTEM: Unlabored breathing , decreased breath sounds at bases HEART: S1 S2 regular rate and rhythm , ABDOMEN: Soft , no tenderness EXTREMITIES: Right leg wound is currently dressed minimal drainage on the dressing - Labs CBC & Chem 7: 04/30/24 22:44 05/03/24 03:47 Labs: Abnormal Lab Results - Last 24 Hours (Table) 05/02/24 05/02/24 05/03/24 Range/Units 16:50 19:12 03:47 Sodium 136 L (137-145) mmol/L Potassium 5.7 H (3.5-5.1) mmol/L BUN 33 H (9-20) mg/dL Glucose 125 H (74-99) mg/dL POC Glucose (mg/dL) 229 H 184 H (70-110) mg/dL Calcium 7.9 L (8.4-10.2) mg/dL 05/03/24 Range/Units 11:03 Sodium (137-145) mmol/L Potassium (3.5-5.1) mmol/L BUN (9-20) mg/dL Glucose (74-99) mg/dL POC Glucose (mg/dL) 181 H (70-110) mg/dL Calcium (8.4-10.2) mg/dL Microbiology - Last 24 Hours (Table) 05/01/24 14:39 Anaerobic Culture - Preliminary Leg - Right 04/30/24 22:44 Blood Culture - Preliminary Blood Assessment and Plan (1) Sepsis Current Visit: Yes Status: Acute Code(s): A41.9 - SEPSIS, UNSPECIFIED ORGANISM SNOMED Code(s): 81102967 (2) Abscess of right leg Current Visit: Yes Status: Acute Code(s): L02.415 - CUTANEOUS ABSCESS OF RIGHT LOWER LIMB SNOMED Code(s): 685351636 (3) Cellulitis of right lower extremity Current Visit: Yes Status: Acute Code(s): L03.115 - CELLULITIS OF RIGHT LOWER LIMB SNOMED Code(s): 00093818436464001 Plan: 1patient presented to hospital with sepsis in this patient who did have a fever at tachycardia source is likely right lower extremity cellulitis and was concern for an abscess with a previous history of MRSA depression could be related to MRSA and less likely gram-negative infection 2-patient is status post vascular surgery evaluation and drainage of the abscess along with a culture currently growing gram-negative bacilli 3-patient to continue with Zosyn while waiting for the culture to finalize and discontinue daptomycin as no MRSA so far Dictation was produced using [employer] software. please excuse any grammatical, word or spelling errors. Time with Patient: Less than 30
[2024-05-03 16:30] LABS: Glucose,Whole Blood 164 mg/dL (70-110)
[2024-05-03 21:36] LABS: Glucose,Whole Blood 258 mg/dL (70-110)
[2024-05-04] MEDS ORDERED: VANCOMYCIN TROUGH DUE 1 EACH MISC MISCELLANE ONE (06:00)
[2024-05-04 06:55] LABS: Glucose,Whole Blood 113 mg/dL (70-110)
[2024-05-04 11:25] LABS: Glucose,Whole Blood 246 mg/dL (70-110)
--- NOTE | 2024-05-04 11:52 | P.PN ---
Subjective Progress Note Date: 05/04/24 Principal diagnosis: Reason for follow-up is right leg abscess and cellulitis Patient is a 49-year-old male with a past medical history significant for atrial fibrillation heart failure COPD hypertension hyperlipidemia sleep apnea recent admission to the hospital patient did have a right second toe infected callus requiring debridement with the foreign body in the right heel area culture positive for MRSA and has developed significant cellulitis to right lower extremity presented back to the hospital with fever unable to get his antibiotics noticed to have right lower extremity abscess that has been drained by vascular surgery at the bedside on 05/01/2024. On today's evaluation that is 05/04/2024, Patient is afebrile this morning patient has been complaining of some shortness of breath and chest tightening but no significant pain cough or sputum production abdominal pain pain to the lower leg has decreased in intensity. Patient Vanco random was 8.6 local culture have been finalized with the drug- resistant Acinetobacter sensitive only to tetracycline and tobramycin Objective - Vital Signs Vital signs: Vital Signs Temp 97.5 F L 05/04/24 07:08 Pulse 96 05/04/24 08:38 Resp 20 05/04/24 07:08 BP 112/72 05/04/24 07:08 Pulse Ox 97 05/04/24 08:20 FiO2 50 05/02/24 05:35 Intake & Output 05/03/24 05/04/24 05/04/24 18:59 06:59 18:59 Intake Total 900 Output Total 1000 Balance -100 Intake: Intake, IV Titration 300 Amount DAPTOmycin 450 mg In 100 Sodium Chloride 0.9% 50 ml @ 100 mls/hr IVPB Q24H OBI Rx#:[id number] Piperacillin-Tazobactam 3 200 .375 gm In Sodium Chloride 0.9% 100 ml @ 25 mls/hr IVPB Q8HR OBI Rx# :[id number] Oral 600 Output: Urine 1000 Other: Voiding Method Toilet Toilet # Voids 4 # Bowel Movements 1 - Exam GENERAL DESCRIPTION: Middle-age male up in bed in no distress RESPIRATORY SYSTEM: Unlabored breathing , decreased breath sounds at bases HEART: S1 S2 regular rate and rhythm , ABDOMEN: Soft , no tenderness EXTREMITIES: Right leg swelling redness has decreased - Labs CBC & Chem 7: 04/30/24 22:44 05/03/24 03:47 Labs: Abnormal Lab Results - Last 24 Hours (Table) 05/03/24 05/03/24 05/03/24 Range/Units 11:03 16:26 21:34 POC Glucose (mg/dL) 181 H 164 H 258 H (70-110) mg/dL 05/04/24 Range/Units 06:51 POC Glucose (mg/dL) 113 H (70-110) mg/dL Microbiology - Last 24 Hours (Table) 05/01/24 14:39 Gram Stain - Final Leg - Right Wound Culture - Final Acinetobacter rose/haemol 04/30/24 22:44 Blood Culture - Preliminary Blood 05/01/24 14:39 Anaerobic Culture - Preliminary Leg - Right Assessment and Plan (1) Sepsis Current Visit: Yes Status: Acute Code(s): A41.9 - SEPSIS, UNSPECIFIED ORGANISM SNOMED Code(s): 98741540 (2) Abscess of right leg Current Visit: Yes Status: Acute Code(s): L02.415 - CUTANEOUS ABSCESS OF RIGHT LOWER LIMB SNOMED Code(s): 875220779 (3) Cellulitis of right lower extremity Current Visit: Yes Status: Acute Code(s): L03.115 - CELLULITIS OF RIGHT LOWER LIMB SNOMED Code(s): 94185695988578663 Plan: 1patient presented to hospital with sepsis in this patient who did have a fever at tachycardia source is likely right lower extremity cellulitis and was concern for an abscess with a previous history of MRSA depression could be related to MRSA and less likely gram-negative infection 2-patient is status post vascular surgery evaluation and drainage of the abscess along with a culture currently growing drug-resistant Acinetobacter question of possible contaminated 3-patient to continue with Zosyn we will add doxycycline and continue local wound care with Aquacel packing of the wound Dictation was produced using [employer] dictation software. please excuse any gr ammatical, word or spelling errors. Time with Patient: Less than 30
[2024-05-04] MEDS: DOXYCYCLINE 100 MG CAP PO SCH (12:25)
--- NOTE | 2024-05-04 16:14 | P.PN ---
Progress Note - Text 59-year-old gentleman history of bilateral venous hypertension with history of abscess formation noted on the right leg anterior aspect of the lower leg post I&D and a inpatient is under care of infectious disease IV antibiotic we been treating with local wound care using Aquacel rope patient be continued has no fever or chills present at this point think should be changed every 48 hours
[2024-05-04 16:25] LABS: Glucose,Whole Blood 160 mg/dL (70-110)
--- NOTE | 2024-05-04 18:14 | P.PN ---
Subjective Progress Note Date: 05/04/24 This is a 59-year-old male who presented to the emergency department from [facility] with increasing right lower extremity redness with concerns of worsening cellulitis with failure of outpatient treatment. Patient was recently hospitalized with prolonged hospitalization for CHF and COPD exacerbation also noted to have right heel foreign body that was removed and right lower extremity cellulitis showing MRSA and was sent with a PICC line and IV antibiotics. Per ECF patient has removed a few of the IVs and was sent here for worsening cellulitis. On admission chest x-ray shows cardiomegaly with patchy right basilar opacity favoring atelectasis with an improved left basilar acute infiltrate and no acute infiltrate noted. Clinically patient appears volume overloaded with acute CHF exacerbation. BNP mildly elevated at 6060. Patient presented to the hospital with no white count, hemoglobin was stable, sodium 135 with a potassium of 5.4, creatinine 1.28 and chronically has CKD. Potassium chronically elevated and will hold Aldactone for now and also recommend low potassium diet. Patient needs to be more compliant with strict fluid restrictions to manage his CHF. Patient also uses BiPAP at night and will rearrange to receive BiPAP and his chronic O2 during the day. Patient is being resumed on antibiotics with infectious disease on consult and also vascular surgery Dr. Matta for further evaluation of this right lower extremity. 05/02/2024 Patient is evaluated today in follow-up in the medical floor. He is sitting up at the edge of the bed. He underwent I&D of the right lower extremity abscess today and deep tissue cultures were sent. He continues on IV vancomycin and IV daptomycin and IV Zosyn at this time. He is continued on his oral diuretics. Patient is concerned with his fluid restriction and upset states that he will so if it if he does not get more fluid. Preliminary wound cultures so far showing gram-negative bacilli. Sodium level 139, potassium 4.4, BUN of 32, creatinine of 1.11. 05/03/2024 Patient is evaluated today in follow up. Patient is resting comfortably. He is continued on 1200 fluid restriction. Sodium 136, potassium 5.7, BUN 33, creatinine 1.23. Wound culture of the right leg showing preliminary gram negative bacilli. He remains on IV daptomycin, vancomycin and zosyn. 05/04/2024 Patient is evaluated today on the medical floor. Sitting up on the edge of the bed, He is requesting to go up on the fluid restriction. Wound culture of the right leg is showing acinetobater baumanii/haemol with resistance noted. Continues on IV zosyn, ID following closely. Reports increased shortness of breath today. REVIEW OF SYSTEMS: CONSTITUTIONAL: No fever, no malaise, no fatigue. HEENT: No recent visual problems or hearing problems. Denied any sore throat. CARDIOVASCULAR: No chest pain, orthopnea, PND, no palpitations, no syncope. PULMONARY: No shortness of breath, no cough, no hemoptysis. GASTROINTESTINAL: No diarrhea, no nausea, no vomiting, no abdominal pain. NEUROLOGICAL: No headaches, no weakness, no numbness. PHYSICAL EXAMINATION: GENERAL: The patient is alert and oriented x3, not in any acute distress. Well developed, well nourished. HEENT: Pupils are round and equally reacting to light. EOMI. No scleral icterus. No conjunctival pallor. Normocephalic, atraumatic. No pharyngeal erythema. No thyromegaly. CARDIOVASCULAR: S1 and S2 present. No murmurs, rubs, or gallops. PULMONARY: Chest is clear to auscultation, no wheezing or crackles. ABDOMEN: Soft, nontender, nondistended, normoactive bowel sounds. No palpable organomegaly. MUSCULOSKELETAL: No joint swelling or deformity. EXTREMITIES: No cyanosis, clubbing, or pedal edema. NEUROLOGICAL: Gross neurological examination did not reveal any focal deficits. SKIN: No rashes. Assessment: Right lower extremity cellulitis with sepsis with abscess formation, failure of outpatient treatment Recent hospitalization with right lower extremity debridement and cultures growing MRSA, was sent to [facility] with a PICC line and IV antibiotic therapy Chronic hypoxic respiratory failure secondary to CHF and COPD CHF, preserved EF continues on oral lasix. With no acute exacerbation. Most recent EF was 60 to 65% Diabetes Mellitus type 2 controlled. Hypokalemia History of chronic kidney disease stage IIIa Hypertension history Persistent atrial fibrillation with recent cardioversion of 04/08/2024 Morbid obesity with a BMI of 47.4 Obstructive sleep apnea, noncompliant with CPAP outpatient GI prophylaxis DVT prophylaxis Full code Plan: Patient was started on vancomycin and Zosyn and also on daptomycin and appreciate input and recommendations from infectious disease Vascular surgery following patient is postoperative I & D of the right leg. Will hold Aldactone as patient continues to have hyperkalemia. Will follow-up with repeat labs recommend low potassium diet and will give scheduled lokelma today. patient is to continue with fluid restrictions and compliance. Patient is extremely noncompliant with medications and treatments Will resume BiPAP along with DuoNebs He is on a 1200 cc fluid restriction and upset with this demanding more fluid. Repeat blood work tomorrow. The impression and plan of care has been dictated by Meri Galvan, Nurse Practitioner as directed. Dr. Denisse MD I have performed a history and physical examination and medical decision making of this patient, discussed the same with the dictator, and agree with the dictators assessment and plan as written, documented as a scribe. Based on total visit time, I have performed more than 50% of this visit. Objective - Vital Signs Vital signs: Vital Signs Temp 97.6 F 05/04/24 13:34 Pulse 88 05/04/24 16:09 Resp 19 05/04/24 13:34 BP 99/64 05/04/24 13:34 Pulse Ox 90 L 05/04/24 13:34 FiO2 50 05/02/24 05:35 Intake & Output 05/03/24 05/04/24 05/04/24 18:59 06:59 18:59 Intake Total 900 Output Total 1000 Balance -100 Intake: Intake, IV Titration 300 Amount DAPTOmycin 450 mg In 100 Sodium Chloride 0.9% 50 ml @ 100 mls/hr IVPB Q24H OBI Rx#:[id number] Piperacillin-Tazobactam 3 200 .375 gm In Sodium Chloride 0.9% 100 ml @ 25 mls/hr IVPB Q8HR OBI Rx# :[id number] Oral 600 Output: Urine 1000 Other: Voiding Method Toilet Toilet # Voids 4 4 # Bowel Movements 1 - Labs CBC & Chem 7: 04/30/24 22:44 05/03/24 03:47 Labs: Abnormal Lab Results - Last 24 Hours (Table) 05/03/24 05/04/24 05/04/24 Range/Units 21:34 06:51 11:24 POC Glucose (mg/dL) 258 H 113 H 246 H (70-110) mg/dL 05/04/24 Range/Units 16:24 POC Glucose (mg/dL) 160 H (70-110) mg/dL Microbiology - Last 24 Hours (Table) 05/01/24 14:39 Gram Stain - Final Leg - Right Wound Culture - Final Acinetobacter rose/haemol 04/30/24 22:44 Blood Culture - Preliminary Blood Assessment and Plan Time with Patient: Less than 30
[2024-05-04 20:14] LABS: Glucose,Whole Blood 226 mg/dL (70-110)
[2024-05-05 06:25] LABS: Glucose,Whole Blood 458 mg/dL (70-110)
[2024-05-05 10:12] LABS: Basophils # (A) 0.06 X 10*3/uL (0.00-0.10); Eosinophils # (A) 0.19 X 10*3/uL (0.04-0.35); Eosinophils % (A) 3.3 %; HCT 42.2 % (39.6-50.0); HGB 13.9 g/dL (13.0-17.0); Lymphocytes # (A) 0.74 X 10*3/uL (0.90-5.00); Lymphocytes % (A) 12.8 %; MCH 32.6 pg (27.0-32.0); MCHC 32.9 g/dL (32.0-37.0); MCV 98.8 FL (80.0-97.0); Mean Platelet Volume 10.6 FL (9.5-12.2); Monocytes # (A) 0.39 X 10*3/uL (0.20-1.00); Monocytes % (A) 6.7 %; NRBC Per 100 WBC 0.15 X 10*3/uL (0.00-0.01); Neutrophils # (A) 4.26 X 10*3/uL (1.80-7.70); Neutrophils % (A) 73.8 %; Platelet Count 188 X 10*3/uL (140-440); RBC 4.27 X 10*6/uL (4.40-5.60); RDW 16.6 % (11.5-14.5); WBC 5.78 X 10*3/uL (4.50-10.00)
[2024-05-05 10:23] LABS: BUN/Creat Ratio 26.33 Ratio (12.00-20.00); Blood Urea Nitrogen 31.6 mg/dL (9.0-27.0); Calcium 8.5 mg/dL (8.7-10.3); Carbon Dioxide 35.1 mmol/L (21.6-31.8); Chloride 99 mmol/L (96-109); Glucose 99 mg/dL (70-110); Potassium 4.6 mmol/L (3.5-5.5); Sodium 143 mmol/L (135-145)
[2024-05-05 11:45] LABS: Glucose,Whole Blood 143 mg/dL (70-110)
--- NOTE | 2024-05-05 12:07 | P.DS ---
Providers Date of admission: 05/01/24 00:31 Attending physician: Rashaad Peres Consults: 05/01/24 00:33 Consult Physician Routine Consulting Provider: Kamryn Galeana Consult Reason/Comments: Right leg cellulitis. Sepsis Do you want consulting provider notified?: Yes 05/01/24 13:04 Consult Physician Urgent Consulting Provider: Ignacio Matta Consult Reason/Comments: right lower extremity cellulitis Do you want consulting provider notified?: Yes Primary care physician: Thomas Hospital Course: Final Diagnosis Right lower extremity cellulitis with sepsis with abscess formation, failure of outpatient treatment Recent hospitalization with right lower extremity debridement and cultures growing MRSA, was sent to [facility] with a PICC line and IV antibiotic therapy Chronic hypoxic respiratory failure secondary to CHF and COPD CHF, preserved EF continues on oral lasix. With no acute exacerbation. Most recent EF was 60 to 65% Diabetes Mellitus type 2 controlled. Hypokalemia History of chronic kidney disease stage IIIa Hypertension history Persistent atrial fibrillation with recent cardioversion of 04/08/2024 Morbid obesity with a BMI of 47.4 Obstructive sleep apnea, noncompliant with CPAP outpatient Discharge Disposition Stable for discharge patient will return to [facility]. Continue oral antibiotics with oral Keflex and oral doxycycline for the next 10 days. Follow- up closely with Dr. Galeana in the office. Cultures are no longer growing MRSA. He will not be continued on IV antibiotic therapy. Repeat blood work in 3 to 4 days. Patient to continue on BiPAP at . Hospital Course This is a 59-year-old male who presented to the emergency department from [facility] with increasing right lower extremity redness with concerns of worsening cellulitis with failure of outpatient treatment. Patient was recently hospitalized with prolonged hospitalization for CHF and COPD exacerbation also noted to have right heel foreign body that was removed and right lower extremity cellulitis showing MRSA and was sent with a PICC line and IV antibiotics. Per ECF patient has removed a few of the IVs and was sent here for worsening cellulitis. On admission chest x-ray shows cardiomegaly with patchy right basilar opacity favoring atelectasis with an improved left basilar acute infiltrate and no acute infiltrate noted. Clinically patient appears volume overloaded with acute CHF exacerbation. BNP mildly elevated at 6060. Patient presented to the hospital with no white count, hemoglobin was stable, sodium 135 with a potassium of 5.4, creatinine 1.28 and chronically has CKD. Potassium chronically elevated and will hold Aldactone for now and also recommend low potassium diet. Patient needs to be more compliant with strict fluid restrictions to manage his CHF. Patient also uses BiPAP at night and will rearrange to receive BiPAP and his chronic O2 during the day. Patient is being resumed on antibiotics with infectious disease on consult and also vascular surgery Dr. Matta for further evaluation of this right lower extremity. Had I&D of the right lower extremity with cultures showing acinetobater baumanii/haemol with resistance noted. Wound care is in place with aquaelcel ro pe and should be changed every 48 hours. Patient has been cleared by ID he will return to [facility] for continued wound care and strengthening. Please see medication reconciliation for a list of current medications. Thank you for allowing us to participate in the care of this patient. The impression and plan of care has been dictated by Meri Galvan, Nurse Practitioner as directed. Dr. Denisse MD I have performed a history and physical examination and medical decision making of this patient, discussed the same with the dictator, and agree with the dictators assessment and plan as written, documented as a scribe. Based on total visit time, I have performed more than 50% of this visit. Patient Condition at Discharge: Fair Plan - Discharge Summary New Discharge Prescriptions: New SILVER sulfADIAZINE Cream [Silvadene 1% Cream] 1 applic TOPICAL DAILY each Cephalexin [Keflex] 500 mg PO Q6HR 10 Days #40 cap Doxycycline [Vibramycin] 100 mg PO BID 10 Days #20 capsule Continue hydrOXYzine pamoate [Vistaril] 50 mg PO HS PRN PRN Reason: ANXIETY/INSOMNIA Dapagliflozin Propanediol [Farxiga] 10 mg PO DAILY 30 Days #30 tab Amiodarone [Cordarone] 400 mg PO BID tab Metoprolol Tartrate [Lopressor] 150 mg PO BID tab Prochlorperazine [Compazine] 10 mg PO Q8H PRN PRN Reason: Nausea And Vomiting Naloxone HCl [Narcan] 4 mg NASAL DIRECTED PRN PRN Reason: overdose Tamsulosin [Flomax] 0.4 mg PO DAILY Acetaminophen [Tylenol] 650 mg PO Q6H PRN PRN Reason: Fever And/ Or Pain Torsemide [Demadex] 10 mg PO DAILY Pregabalin [Lyrica] 150 mg PO BID #6 cap Atorvastatin [Lipitor] 10 mg PO HS busPIRone HCl [Buspar] 5 mg PO TID 30 Days #90 tab Apixaban [Eliquis] 5 mg PO BID Finasteride [Proscar] 5 mg PO DAILY Sertraline [Zoloft] 50 mg PO DAILY Albuterol Sulfate [Ventolin HFA] 1 puff INHALATION RT-BID Spironolactone [Aldactone] 12.5 mg PO DAILY tab diphenhydrAMINE [Benadryl] 25 mg PO BID PRN cap PRN Reason: Itching Ipratropium-Albuterol Nebulize [Duoneb 0.5 mg-3 mg/3 ml Soln] 3 ml INHALATION RT-QID each Ipratropium-Albuterol Nebulize [Duoneb 0.5 mg-3 mg/3 ml Soln] 3 ml INHALATION RT-Q2H PRN each PRN Reason: Shortness Of Breath Or Wheezing Insulin Detemir (Levemir) [Levemir] 15 unit SQ BID@0700,2100 each predniSONE See Taper PO DIRECTED #30 tab Pantoprazole [Protonix] 40 mg PO AC-BID tab Budesonide-Formot 160-4.5 Mcg [Symbicort 160-4.5 Mcg Inhaler] 2 puff INHALATION RT-BID each Calcium Carbonate [Tums] 1,000 mg PO QID PRN tab PRN Reason: Heartburn INSULIN ASPART (NovoLOG) [NovoLOG (formulary)] See Protocol SQ ACHS 0.9 % Sodium Chloride [Sodium Chloride Flush] 10 ml IV BID ALPRAZolam [Xanax] 0.25 mg PO TID #6 tab Changed HYDROcodone/APAP 7.5-325MG [[place] 7.5-325] 1 tab PO Q6HR PRN #6 tab PRN Reason: Pain Discontinued oxyCODONE-APAP 10-325MG [Percocet 10-325 mg] 1 tab PO Q4HR PRN PRN Reason: Pain DAPTOmycin [Cubicin] 450 mg IVPB Q24HR Discharge Medication List hydrOXYzine pamoate [Vistaril] 50 mg PO HS PRN 07/09/22 [History] Atorvastatin [Lipitor] 10 mg PO HS 08/01/22 [History] Dapagliflozin Propanediol [Farxiga] 10 mg PO DAILY 30 Days #30 tab 09/10/22 [Rx] busPIRone HCl [Buspar] 5 mg PO TID 30 Days #90 tab 09/10/22 [Rx] Apixaban [Eliquis] 5 mg PO BID 12/12/23 [History] Finasteride [Proscar] 5 mg PO DAILY 12/12/23 [History] Sertraline [Zoloft] 50 mg PO DAILY 12/12/23 [History] Albuterol Sulfate [Ventolin HFA] 1 puff INHALATION RT-BID 04/04/24 [History] Amiodarone [Cordarone] 400 mg PO BID tab 04/22/24 [Rx] Budesonide-Formot 160-4.5 Mcg [Symbicort 160-4.5 Mcg Inhaler] 2 puff INHALATION RT-BID each 04/22/24 [Rx] Calcium Carbonate [Tums] 1,000 mg PO QID PRN tab 04/22/24 [Rx] Insulin Detemir (Levemir) [Levemir] 15 unit SQ BID@0700,2100 each 04/22/24 [Rx] Ipratropium-Albuterol Nebulize [Duoneb 0.5 mg-3 mg/3 ml Soln] 3 ml INHALATION RT-Q2H PRN each 04/22/24 [Rx] Ipratropium-Albuterol Nebulize [Duoneb 0.5 mg-3 mg/3 ml Soln] 3 ml INHALATION RT-QID each 04/22/24 [Rx] Metoprolol Tartrate [Lopressor] 150 mg PO BID tab 04/22/24 [Rx] Pantoprazole [Protonix] 40 mg PO AC-BID tab 04/22/24 [Rx] Spironolactone [Aldactone] 12.5 mg PO DAILY tab 04/22/24 [Rx] diphenhydrAMINE [Benadryl] 25 mg PO BID PRN cap 04/22/24 [Rx] predniSONE See Taper PO DIRECTED #30 tab 04/22/24 [Rx] 0.9 % Sodium Chloride [Sodium Chloride Flush] 10 ml IV BID 05/01/24 [History] Acetaminophen [Tylenol] 650 mg PO Q6H PRN 05/01/24 [History] INSULIN ASPART (NovoLOG) [NovoLOG (formulary)] See Protocol SQ ACHS 05/01/24 [History] Naloxone HCl [Narcan] 4 mg NASAL DIRECTED PRN 05/01/24 [History] Prochlorperazine [Compazine] 10 mg PO Q8H PRN 05/01/24 [History] Tamsulosin [Flomax] 0.4 mg PO DAILY 05/01/24 [History] Torsemide [Demadex] 10 mg PO DAILY 05/01/24 [History] ALPRAZolam [Xanax] 0.25 mg PO TID #6 tab 05/05/24 [Rx] Cephalexin [Keflex] 500 mg PO Q6HR 10 Days #40 cap 05/05/24 [Rx] Doxycycline [Vibramycin] 100 mg PO BID 10 Days #20 capsule 05/05/24 [Rx] HYDROcodone/APAP 7.5-325MG [[place] 7.5-325] 1 tab PO Q6HR PRN #6 tab 05/05/24 [Rx] Pregabalin [Lyrica] 150 mg PO BID #6 cap 05/05/24 [Rx] SILVER sulfADIAZINE Cream [Silvadene 1% Cream] 1 applic TOPICAL DAILY each 05/05/24 [Rx] Follow up Appointment(s)/Referral(s): Parish Iverson MD [Primary Care Provider] - 1-2 days Kamryn Galeana MD [STAFF PHYSICIAN] - 1 Week Ignacio Matta MD [STAFF PHYSICIAN] - 1 Week [facility] [NON-STAFF] - 3 Days Ambulatory/Diagnostic Orders: Basic Metabolic Panel [LAB.AMB] Time Frame: 4 Days, Location: None Selected Complete Blood Count w/diff [LAB.AMB] Location: None Selected Activity/Diet/Wound Care/Special Instructions: Right anterior lower extremity and right foot second digit apply absorptive silver, saline moist gauze, dry gauze, rolled gauze and secure with paper tape. Wrap with Gonzalez wrap for compression. Change the dressing every 48 hours Continue oral doxycycline and oral keflex for the next 10 days Continue BiPAP on HS Discharge Disposition: TRANSFER TO SNF/ECF
--- NOTE | 2024-05-05 12:18 | P.PN ---
Subjective Progress Note Date: 05/05/24 Principal diagnosis: Reason for follow-up is right leg abscess and cellulitis Patient is a 49-year-old male with a past medical history significant for atrial fibrillation heart failure COPD hypertension hyperlipidemia sleep apnea recent admission to the hospital patient did have a right second toe infected callus requiring debridement with the foreign body in the right heel area culture positive for MRSA and has developed significant cellulitis to right lower extremity presented back to the hospital with fever unable to get his antibiotics noticed to have right lower extremity abscess that has been drained by vascular surgery at the bedside on 05/01/2024. On today's evaluation that is 05/05/2024,the patient denies any fever or any chills, patient is breathing slightly comfortably on 3 L current oxygen, the patient denies chest pain worsening shortness of breath and no significant cough, patient denies abdominal pain, no nausea vomiting or diarrhea. Denies any worsening pain to the right lower extremity. Patient white count is normal at 5.78, creatinine is 1.2 local culture with multidrug-resistant Acinetobacter questionably contaminant sensitive to tetracycline Objective - Vital Signs Vital signs: Vital Signs Temp 97.6 F 05/05/24 07:26 Pulse 84 05/05/24 08:05 Resp 21 05/05/24 08:00 BP 116/74 05/05/24 07:26 Pulse Ox 93 L 05/05/24 07:52 FiO2 50 05/05/24 03:00 Intake & Output 05/04/24 05/05/24 05/05/24 18:59 06:59 18:59 Intake Total 118 Balance 118 Intake: Oral 118 Other: Voiding Method Toilet # Voids 4 3 - Exam GENERAL DESCRIPTION: Middle-age male up in bed in no distress RESPIRATORY SYSTEM: Unlabored breathing , decreased breath sounds at bases HEART: S1 S2 regular rate and rhythm , ABDOMEN: Soft , no tenderness EXTREMITIES: Right leg swelling redness has decreased wound is currently dressed - Labs CBC & Chem 7: 05/05/24 07:32 05/05/24 07:32 Labs: Abnormal Lab Results - Last 24 Hours (Table) 05/04/24 05/04/24 05/04/24 Range/Units 11: 16:24 20:12 RBC (4.40-5.60) X 10*6/uL MCV (80.0-97.0) FL MCH (27.0-32.0) pg RDW (11.5-14.5) % Immature Gran # (0.00-0.04) X 10*3/uL Lymphocytes # (0.90-5.00) X 10*3/uL NRBC/100 WBC Diff (0.00-0.01) X 10*3/uL Carbon Dioxide (21.6-31.8) mmol/L BUN (9.0-27.0) mg/dL BUN/Creatinine Ratio (12.00-20.00) Ratio POC Glucose (mg/dL) 246 H 160 H 226 H (70-110) mg/dL Calcium (8.7-10.3) mg/dL 05/05/24 05/05/24 05/05/24 Range/Units 06:24 07:32 07:32 RBC 4.27 L (4.40-5.60) X 10*6/uL MCV 98.8 H (80.0-97.0) FL MCH 32.6 H (27.0-32.0) pg RDW 16.6 H (11.5-14.5) % Immature Gran # 0.14 H (0.00-0.04) X 10*3/uL Lymphocytes # 0.74 L (0.90-5.00) X 10*3/uL NRBC/100 WBC Diff 0.15 H (0.00-0.01) X 10*3/uL Carbon Dioxide 35.1 H (21.6-31.8) mmol/L BUN 31.6 H (9.0-27.0) mg/dL BUN/Creatinine Ratio 26.33 H (12.00-20.00) Ratio POC Glucose (mg/dL) 458 H (70-110) mg/dL Calcium 8.5 L (8.7-10.3) mg/dL Microbiology - Last 24 Hours (Table) 05/01/24 14:39 Gram Stain - Final Leg - Right Wound Culture - Final Acinetobacter rose/haemol Assessment and Plan (1) Sepsis Current Visit: Yes Status: Acute Code(s): A41.9 - SEPSIS, UNSPECIFIED ORGANISM SNOMED Code(s): 04549103 (2) Abscess of right leg Current Visit: Yes Status: Acute Code(s): L02.415 - CUTANEOUS ABSCESS OF RIGHT LOWER LIMB SNOMED Code(s): 929026531 (3) Cellulitis of right lower extremity Current Visit: Yes Status: Acute Code(s): L03.115 - CELLULITIS OF RIGHT LOWER LIMB SNOMED Code(s): 53648771386378282 Plan: 1patient presented to hospital with sepsis in this patient who did have a fever at tachycardia source is likely right lower extremity cellulitis and was concern for an abscess with a previous history of MRSA depression could be related to MRSA and less likely gram-negative infection 2-patient is status post vascular surgery evaluation and drainage of the abscess along with a culture currently growing drug-resistant Acinetobacter question of possible contamination as the patient clinic improved without getting treatment for it 3 we will recommend a 10-day course of oral Keflex and doxycycline on discharge this has been discussed with FILTER TENDER JELLY for admitting working on discharge local care to continue with Aquacel silver packing of the wound Dictation was produced using [email or web address] dictation software. please excuse any grammatical, word or spelling errors. Time with Patient: Less than 30
[2024-05-05] MEDS: INSULIN ASPART (NovoLOG) 100 UNIT/ML VIAL SQ SCH (12:25)
[2024-05-05 16:50] LABS: Glucose,Whole Blood 196 mg/dL (70-110)
[2024-05-05 20:53] LABS: Glucose,Whole Blood 131 mg/dL (70-110)
[2024-05-05] MEDS: INSULIN DETEMIR (LEVEMIR) 100 UNIT/ML SYR SQ SCH (22:12)
[2024-05-06 06:34] LABS: Glucose,Whole Blood 137 mg/dL (70-110)
[2024-05-06 08:11] VITALS: RESP 16
[2024-05-06 11:09] LABS: Glucose,Whole Blood 203 mg/dL (70-110)
--- NOTE | 2024-05-06 11:55 | P.PN ---
Subjective Progress Note Date: 05/06/24 Principal diagnosis: Reason for follow-up is right leg abscess and cellulitis Patient is a 49-year-old male with a past medical history significant for atrial fibrillation heart failure COPD hypertension hyperlipidemia sleep apnea recent admission to the hospital patient did have a right second toe infected callus requiring debridement with the foreign body in the right heel area culture positive for MRSA and has developed significant cellulitis to right lower extremity presented back to the hospital with fever unable to get his antibiotics noticed to have right lower extremity abscess that has been drained by vascular surgery at the bedside on 05/01/2024. On today's evaluation that is 05/06/2024,the patient remains to be afebrile, patient is on BiPAP and is complaining of shortness of breath patient denies having any chest pain or cough no nausea vomiting no abdominal pain no diarrhea. No new lab has been repeated but his white count was 5.78 as of yesterday Objective - Vital Signs Vital signs: Vital Signs Temp 97.0 F L 05/06/24 08:00 Pulse 86 05/06/24 08:32 Resp 16 05/06/24 08:00 BP 136/78 05/06/24 08:00 Pulse Ox 91 L 05/06/24 08:00 FiO2 50 05/06/24 00:00 Intake & Output 05/05/24 05/06/24 05/06/24 18:59 06:59 18:59 Intake Total 236 118 Balance 236 118 Intake: Oral 236 118 Other: Voiding Method Toilet Toilet # Voids 5 # Bowel Movements 1 - Exam GENERAL DESCRIPTION: Middle-age male up in bed in no distress RESPIRATORY SYSTEM: Unlabored breathing , decreased breath sounds at bases HEART: S1 S2 regular rate and rhythm , ABDOMEN: Soft , no tenderness EXTREMITIES: Right leg swelling redness has decreased wound is currently dressed - Labs CBC & Chem 7: 05/05/24 07:32 05/05/24 07:32 Labs: Abnormal Lab Results - Last 24 Hours (Table) 05/05/24 05/05/24 05/06/24 Range/Units 16:49 20:51 06:32 POC Glucose (mg/dL) 196 H 131 H 137 H (70-110) mg/dL 05/06/24 Range/Units 11:08 POC Glucose (mg/dL) 203 H (70-110) mg/dL Microbiology - Last 24 Hours (Table) 04/30/24 22:44 Blood Culture - Final Blood 05/01/24 14:39 Anaerobic Culture - Final Leg - Right Assessment and Plan (1) Sepsis Current Visit: Yes Status: Acute Code(s): A41.9 - SEPSIS, UNSPECIFIED ORGANISM SNOMED Code(s): 13410101 (2) Abscess of right leg Current Visit: Yes Status: Acute Code(s): L02.415 - CUTANEOUS ABSCESS OF RIGHT LOWER LIMB SNOMED Code(s): 802857063 (3) Cellulitis of right lower extremity Current Visit: Yes Status: Acute Code(s): L03.115 - CELLULITIS OF RIGHT LOWER LIMB SNOMED Code(s): 45144712698905913 Plan: 1patient presented to hospital with sepsis in this patient who did have a fever at tachycardia source is likely right lower extremity cellulitis and was concern for an abscess with a previous history of MRSA depression could be related to MRSA and less likely gram-negative infection 2-patient is status post vascular surgery evaluation and drainage of the abscess along with a culture currently growing drug-resistant Acinetobacter question of possible contamination as the patient clinic improved without getting treatment for it 3 we will recommend a 10-day course of oral Keflex and doxycycline on discharge, keeping in mind his worsening shortness of breath we will check a chest x-ray Dictation was produced using [employer] dictation software. please excuse any grammatical, word or spelling errors. Time with Patient: Less than 30
[2024-05-06 13:37] VITALS: BP 121/86; PULSE 85; TEMP 97.3
--- NOTE | 2024-05-06 14:04 | XR ---
EXAMINATION TYPE: XR chest 2V DATE OF EXAM: 05/06/2024 1:23 PM COMPARISON: 04/30/2024 CLINICAL INDICATION: Male, 59 years old with history of Shortness of breath, TECHNIQUE: XR chest 2V view(s) obtained. FINDINGS: The heart size is large. The pulmonary vasculature is dominant. Small bilateral pleural effusions are present.. IMPRESSION: 1. Clinical correlation for developing congestive heart failure [facility], , 05/06/2024 2:01 PM
[2024-05-06] MEDS ORDERED: FUROSEMIDE 10 MG/ML 4 ML VIAL IV STA (14:25)
--- NOTE | 2024-05-12 09:02 | P.DS ---
Providers Date of admission: 05/01/24 00:31 Attending physician: Rashaad Peres Consults: 05/01/24 00:33 Consult Physician Routine Consulting Provider: Kamryn Galeana Consult Reason/Comments: Right leg cellulitis. Sepsis Do you want consulting provider notified?: Yes 05/01/24 13:04 Consult Physician Urgent Consulting Provider: Ignacio Matta Consult Reason/Comments: right lower extremity cellulitis Do you want consulting provider notified?: Yes Primary care physician: [facility] Course: Final Diagnosis Right lower extremity cellulitis with sepsis with abscess formation, failure of outpatient treatment Recent hospitalization with right lower extremity debridement and cultures growing MRSA, was sent to [facility] with a PICC line and IV antibiotic therapy Chronic hypoxic respiratory failure secondary to CHF and COPD CHF, preserved EF continues on oral lasix. With no acute exacerbation. Most recent EF was 60 to 65% Diabetes Mellitus type 2 controlled. Hypokalemia History of chronic kidney disease stage IIIa Hypertension history Persistent atrial fibrillation with recent cardioversion of 04/08/2024 Morbid obesity with a BMI of 47.4 Obstructive sleep apnea, noncompliant with CPAP outpatient Discharge Disposition Patient has opted for discharged home. Stable for discharge however patient is a high risk for readmission secondary to chronic wounds and his chronic comorbidities. Patient to continue oral antibiotics with oral Keflex and oral doxycycline for the next 10 days. Follow-up closely with Dr. Galeana in the office. Cultures are no longer growing MRSA. He will not be continued on IV antibiotic therapy. Repeat blood work in 3 to 4 days. Patient to continue on BiPAP at . Hospital Course This is a 59-year-old male who presented to the emergency department from [facility] with increasing right lower extremity redness with concerns of worsening cellulitis with failure of outpatient treatment. Patient was recently hospitalized with prolonged hospitalization for CHF and COPD exacerbation also noted to have right heel foreign body that was removed and right lower extremity cellulitis showing MRSA and was sent with a PICC line and IV antibiotics. Per ECF patient has removed a few of the IVs and was sent here for worsening cellulitis. On admission chest x-ray shows cardiomegaly with patchy right basilar opacity favoring atelectasis with an improved left basilar acute infiltrate and no acute infiltrate noted. Clinically patient appears volume overloaded with acute CHF exacerbation. BNP mildly elevated at 6060. Patient presented to the hospital with no white count, hemoglobin was stable, sodium 135 with a potassium of 5.4, creatinine 1.28 and chronically has CKD. Potassium chronically elevated and will hold Aldactone for now and also recommend low potassium diet. Patient needs to be more compliant with strict fluid restrictions to manage his CHF. Patient also uses BiPAP at night and will rearrange to receive BiPAP and his chronic O2 during the day. Patient is being resumed on antibiotics with infectious disease on consult and also vascular surgery Dr. Matta for further evaluation of this right lower extremity. Had I&D of the right lower extremity with cultures showing acinetobater baumanii/haemol with resistance noted. Wound care is in place with aquaelcel rope and should be changed every 48 hours. Physical therapy has cleared the patient for discharge home. Please see medication reconciliation for a list of current medications. Thank you for allowing us to participate in the care of this patient. The impression and plan of care has been dictated by Meri Galvan, Nurse Practitioner as directed. Dr. Denisse MD I have performed a history and physical examination and medical decision making of this patient, discussed the same with the dictator, and agree with the dictators assessment and plan as written, documented as a scribe. Based on total visit time, I have performed more than 50% of this visit. Patient Condition at Discharge: Fair Plan - Discharge Summary New Discharge Prescriptions: New SILVER sulfADIAZINE Cream [Silvadene 1% Cream] 1 applic TOPICAL DAILY each Cephalexin [Keflex] 500 mg PO Q6HR 10 Days #40 cap Doxycycline [Vibramycin] 100 mg PO BID 10 Days #20 capsule Continue hydrOXYzine pamoate [Vistaril] 50 mg PO HS PRN PRN Reason: ANXIETY/INSOMNIA Dapagliflozin Propanediol [Farxiga] 10 mg PO DAILY 30 Days #30 tab Amiodarone [Cordarone] 400 mg PO BID tab Metoprolol Tartrate [Lopressor] 150 mg PO BID tab Prochlorperazine [Compazine] 10 mg PO Q8H PRN PRN Reason: Nausea And Vomiting Naloxone HCl [Narcan] 4 mg NASAL DIRECTED PRN PRN Reason: overdose Tamsulosin [Flomax] 0.4 mg PO DAILY Acetaminophen [Tylenol] 650 mg PO Q6H PRN PRN Reason: Fever And/ Or Pain Torsemide [Demadex] 10 mg PO DAILY Pregabalin [Lyrica] 150 mg PO BID #6 cap Atorvastatin [Lipitor] 10 mg PO HS busPIRone HCl [Buspar] 5 mg PO TID 30 Days #90 tab Apixaban [Eliquis] 5 mg PO BID Finasteride [Proscar] 5 mg PO DAILY Sertraline [Zoloft] 50 mg PO DAILY Albuterol Sulfate [Ventolin HFA] 1 puff INHALATION RT-BID Spironolactone [Aldactone] 12.5 mg PO DAILY tab diphenhydrAMINE [Benadryl] 25 mg PO BID PRN cap PRN Reason: Itching Ipratropium-Albuterol Nebulize [Duoneb 0.5 mg-3 mg/3 ml Soln] 3 ml INHALATION RT-QID each Ipratropium-Albuterol Nebulize [Duoneb 0.5 mg-3 mg/3 ml Soln] 3 ml INHALATION RT-Q2H PRN each PRN Reason: Shortness Of Breath Or Wheezing Insulin Detemir (Levemir) [Levemir] 15 unit SQ BID@0700,2100 each predniSONE See Taper PO DIRECTED #30 tab Pantoprazole [Protonix] 40 mg PO AC-BID tab Budesonide-Formot 160-4.5 Mcg [Symbicort 160-4.5 Mcg Inhaler] 2 puff INHALATION RT-BID each Calcium Carbonate [Tums] 1,000 mg PO QID PRN tab PRN Reason: Heartburn INSULIN ASPART (NovoLOG) [NovoLOG (formulary)] See Protocol SQ ACHS 0.9 % Sodium Chloride [Sodium Chloride Flush] 10 ml IV BID ALPRAZolam [Xanax] 0.25 mg PO TID #6 tab Changed HYDROcodone/APAP 7.5-325MG [Barnstead 7.5-325] 1 tab PO Q6HR PRN #6 tab PRN Reason: Pain Discontinued oxyCODONE-APAP 10-325MG [Percocet 10-325 mg] 1 tab PO Q4HR PRN PRN Reason: Pain DAPTOmycin [Cubicin] 450 mg IVPB Q24HR Discharge Medication List hydrOXYzine pamoate [Vistaril] 50 mg PO HS PRN 07/09/22 [History] Atorvastatin [Lipitor] 10 mg PO HS 08/01/22 [History] Dapagliflozin Propanediol [Farxiga] 10 mg PO DAILY 30 Days #30 tab 09/10/22 [Rx] busPIRone HCl [Buspar] 5 mg PO TID 30 Days #90 tab 09/10/22 [Rx] Apixaban [Eliquis] 5 mg PO BID 12/12/23 [History] Finasteride [Proscar] 5 mg PO DAILY 12/12/23 [History] Sertraline [Zoloft] 50 mg PO DAILY 12/12/23 [History] Albuterol Sulfate [Ventolin HFA] 1 puff INHALATION RT-BID 04/04/24 [History] Amiodarone [Cordarone] 400 mg PO BID tab 04/22/24 [Rx] Budesonide-Formot 160-4.5 Mcg [Symbicort 160-4.5 Mcg Inhaler] 2 puff INHALATION RT-BID each 04/22/24 [Rx] Calcium Carbonate [Tums] 1,000 mg PO QID PRN tab 04/22/24 [Rx] Insulin Detemir (Levemir) [Levemir] 15 unit SQ BID@0700,2100 each 04/22/24 [Rx] Ipratropium-Albuterol Nebulize [Duoneb 0.5 mg-3 mg/3 ml Soln] 3 ml INHALATION RT-Q2H PRN each 04/22/24 [Rx] Ipratropium-Albuterol Nebulize [Duoneb 0.5 mg-3 mg/3 ml Soln] 3 ml INHALATION RT-QID each 04/22/24 [Rx] Metoprolol Tartrate [Lopressor] 150 mg PO BID tab 04/22/24 [Rx] Pantoprazole [Protonix] 40 mg PO AC-BID tab 04/22/24 [Rx] Spironolactone [Aldactone] 12.5 mg PO DAILY tab 04/22/24 [Rx] diphenhydrAMINE [Benadryl] 25 mg PO BID PRN cap 04/22/24 [Rx] predniSONE See Taper PO DIRECTED #30 tab 04/22/24 [Rx] 0.9 % Sodium Chloride [Sodium Chloride Flush] 10 ml IV BID 05/01/24 [History] Acetaminophen [Tylenol] 650 mg PO Q6H PRN 05/01/24 [History] INSULIN ASPART (NovoLOG) [NovoLOG (formulary)] See Protocol SQ ACHS 05/01/24 [History] Naloxone HCl [Narcan] 4 mg NASAL DIRECTED PRN 05/01/24 [History] Prochlorperazine [Compazine] 10 mg PO Q8H PRN 05/01/24 [History] Tamsulosin [Flomax] 0.4 mg PO DAILY 05/01/24 [History] Torsemide [Demadex] 10 mg PO DAILY 05/01/24 [History] ALPRAZolam [Xanax] 0.25 mg PO TID #6 tab 05/05/24 [Rx] Cephalexin [Keflex] 500 mg PO Q6HR 10 Days #40 cap 05/05/24 [Rx] Doxycycline [Vibramycin] 100 mg PO BID 10 Days #20 capsule 05/05/24 [Rx] HYDROcodone/APAP 7.5-325MG [[place] 7.5-325] 1 tab PO Q6HR PRN #6 tab 05/05/24 [Rx] Pregabalin [Lyrica] 150 mg PO BID #6 cap 05/05/24 [Rx] SILVER sulfADIAZINE Cream [Silvadene 1% Cream] 1 applic TOPICAL DAILY each 05/05/24 [Rx] Follow up Appointment(s)/Referral(s): [facility] [REFERRING] - [facility] [NON-STAFF] - 3 Days Ignacio Matta MD [STAFF PHYSICIAN] - 1 Week Kamryn Galeana MD [STAFF PHYSICIAN] - 1 Week Parish Iverson MD [Primary Care Provider] - 1-2 days Ambulatory/Diagnostic Orders: Basic Metabolic Panel [LAB.AMB] Time Frame: 4 Days, Location: None Selected Complete Blood Count w/diff [LAB.AMB] Location: None Selected Patient Instructions/Handouts: Cellulitis (ED) Activity/Diet/Wound Care/Special Instructions: Right anterior lower extremity and right foot second digit apply absorptive silver, saline moist gauze, dry gauze, rolled gauze and secure with paper tape. Wrap with Gonzalez wrap for compression. Change the dressing every 48 hours Continue oral doxycycline and oral keflex for the next 10 days Continue BiPAP on HS Discharge Disposition: HOME WITH HOME HEALTH SERVICES
== END 2024-05-06 15:36 | disposition home health service (06) | DRG 710 ==
LOC: EC 22:01 → 4SSUR 05-01 00:31
PROVIDERS: ADMIT Hospitalist; ATTEND Hospitalist
PROC: 0J9N0ZZ Drainage of Right Lower Leg Subcutaneous Tissue and Fascia, Open Approach (ICD-10-PCS; principal; 2024-05-01)
DX: A41.9 Sepsis, unspecified organism (principal); B96.89 Other specified bacterial agents as the cause of diseases classified elsewhere; E11.621 Type 2 diabetes mellitus with foot ulcer; E11.22 Type 2 diabetes mellitus with diabetic chronic kidney disease; E78.5 Hyperlipidemia, unspecified; E87.5 Hyperkalemia; E87.6 Hypokalemia; F32.A Depression, unspecified; G47.33 Obstructive sleep apnea (adult) (pediatric); I13.0 Hypertensive heart and chronic kidney disease with heart failure and stage 1 through stage 4 chronic kidney disease, or unspecified chronic kidney disease; I48.19 Other persistent atrial fibrillation; I50.33 Acute on chronic diastolic (congestive) heart failure; N18.31 Chronic kidney disease, stage 3a; E66.01 Morbid (severe) obesity due to excess calories; L97.912 Non-pressure chronic ulcer of unspecified part of right lower leg with fat layer exposed; L97.512 Non-pressure chronic ulcer of other part of right foot with fat layer exposed; Z79.4 Long term (current) use of insulin; Z68.42 Body mass index [BMI] 45.0-49.9, adult; J44.89 Other specified chronic obstructive pulmonary disease; J96.11 Chronic respiratory failure with hypoxia; J98.11 Atelectasis; L02.415 Cutaneous abscess of right lower limb; L03.115 Cellulitis of right lower limb; L03.116 Cellulitis of left lower limb; Z79.01 Long term (current) use of anticoagulants; Z79.51 Long term (current) use of inhaled steroids; Z79.84 Long term (current) use of oral hypoglycemic drugs; Z79.899 Other long term (current) drug therapy; Z86.14 Personal history of Methicillin resistant Staphylococcus aureus infection; Z87.891 Personal history of nicotine dependence; Z91.148 Patient's other noncompliance with medication regimen for other reason; Z91.199 Patient's noncompliance with other medical treatment and regimen due to unspecified reason; Z96.641 Presence of right artificial hip joint; Z28.310 Unvaccinated for COVID-19
CPT/HCPCS: 36415; 71045; 71046; 80048; 80053; 80202; 81001; 83605; 83880; 84132; 84484; 85025; 85610; 85730; 87040; 87070; 87075; 87077; 87186; 87205; 93005; 94640; 94660; 94760; 96361; 96365; 96366; 96367; 96375; 99291

== ENCOUNTER 2024-05-07 10:11 | Inpatient (IN) | payer MEDICARE ==
--- NOTE | 2024-05-07 10:46 | ED ---
General Adult HPI - General Chief complaint: Shortness of Breath Stated complaint: COPD issues Time Seen by Provider: 05/07/24 10:15 Source: patient, RN/MD, EMS, RN notes reviewed Mode of arrival: EMS Limitations: no limitations - History of Present Illness Initial comments: Patient is a 59-year-old male presents emergency department as a transfer from [facility]. Patient was recently in the hospital with difficulty breathing. Patient discharged yesterday and symptoms worsen. Patient went there. Patient was placed on BiPAP secondary to elevated CO2 and dyspnea. Patient was given antibiotics for leg wound. Patient was transferred here for level of care. - Related Data Home Medications Medication Instructions Recorded Confirmed hydrOXYzine pamoate [Vistaril] 50 mg PO HS PRN 07/09/22 05/01/24 Atorvastatin [Lipitor] 10 mg PO HS 08/01/22 05/01/24 Apixaban [Eliquis] 5 mg PO BID 12/12/23 05/01/24 Finasteride [Proscar] 5 mg PO DAILY 12/12/23 05/01/24 Sertraline [Zoloft] 50 mg PO DAILY 12/12/23 05/01/24 Albuterol Sulfate [Ventolin HFA] 1 puff INHALATION RT-BID 04/04/24 05/01/24 0.9 % Sodium Chloride [Sodium 10 ml IV BID 05/01/24 05/01/24 Chloride Flush] Acetaminophen [Tylenol] 650 mg PO Q6H PRN 05/01/24 05/01/24 INSULIN ASPART (NovoLOG) [NovoLOG See Protocol SQ ACHS 05/01/24 05/01/24 (formulary)] Naloxone HCl [Narcan] 4 mg NASAL DIRECTED PRN 05/01/24 05/01/24 Prochlorperazine [Compazine] 10 mg PO Q8H PRN 05/01/24 05/01/24 Tamsulosin [Flomax] 0.4 mg PO DAILY 05/01/24 05/01/24 Torsemide [Demadex] 10 mg PO DAILY 05/01/24 05/01/24 Previous Rx's Medication Instructions Recorded Dapagliflozin Propanediol [Farxiga] 10 mg PO DAILY 30 Days #30 tab 09/10/22 busPIRone HCl [Buspar] 5 mg PO TID 30 Days #90 tab 09/10/22 Amiodarone [Cordarone] 400 mg PO BID tab 04/22/24 Budesonide-Formot 160-4.5 Mcg 2 puff INHALATION RT-BID each 04/22/24 [Symbicort 160-4.5 Mcg Inhaler] Calcium Carbonate [Tums] 1,000 mg PO QID PRN tab 04/22/24 Insulin Detemir (Levemir) [Levemir] 15 unit SQ BID@0700,2100 each 04/22/24 Ipratropium-Albuterol Nebulize 3 ml INHALATION RT-Q2H PRN each 04/22/24 [Duoneb 0.5 mg-3 mg/3 ml Soln] Ipratropium-Albuterol Nebulize 3 ml INHALATION RT-QID each 04/22/24 [Duoneb 0.5 mg-3 mg/3 ml Soln] Metoprolol Tartrate [Lopressor] 150 mg PO BID tab 04/22/24 Pantoprazole [Protonix] 40 mg PO AC-BID tab 04/22/24 Spironolactone [Aldactone] 12.5 mg PO DAILY tab 04/22/24 diphenhydrAMINE [Benadryl] 25 mg PO BID PRN cap 04/22/24 predniSONE See Taper PO DIRECTED #30 tab 04/22/24 ALPRAZolam [Xanax] 0.25 mg PO TID #6 tab 05/05/24 Cephalexin [Keflex] 500 mg PO Q6HR 10 Days #40 cap 05/05/24 Doxycycline [Vibramycin] 100 mg PO BID 10 Days #20 capsule 05/05/24 HYDROcodone/APAP 7.5-325MG [[place] 1 tab PO Q6HR PRN #6 tab 05/05/24 7.5-325] Pregabalin [Lyrica] 150 mg PO BID #6 cap 05/05/24 SILVER sulfADIAZINE Cream 1 applic TOPICAL DAILY each 05/05/24 [Silvadene 1% Cream] Allergies Allergy/AdvReac Type Severity Reaction Status Date / Time No Known Allergies Allergy Verified 05/07/24 10:22 Review of Systems ROS Statement: Those systems with pertinent positive or pertinent negative responses have been documented in the HPI. ROS Other: All systems not noted in ROS Statement are negative. Constitutional: Denies: fever Eyes: Denies: eye pain ENT: Denies: ear pain Respiratory: Reports: as per HPI, cough, dyspnea Cardiovascular: Denies: chest pain 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 History of Any Multi-Drug Resistant Organisms: MRSA, Other MDRO Date of last positivie culture/infection: 11/15/22 MDRO Source:: Left Leg Past Surgical History: Hernia Repair, Joint Replacement, Orthopedic Surgery Additional Past Surgical History / Comment(s): RT ARMAND, rt foot SX, Past Anesthesia/Blood Transfusion Reactions: No Reported Reaction Past Psychological History: Depression Smoking Status: Former smoker Past Alcohol Use History: None Reported Past Drug Use History: None Reported - Past Family History Mother Family Medical History: No Reported History General Exam Limitations: no limitations General appearance: alert, in no apparent distress Head exam: Present: normocephalic Eye exam: Present: normal appearance Neck exam: Present: normal inspection Respiratory exam: Present: decreased breath sounds Cardiovascular Exam: Present: tachycardia GI/Abdominal exam: Present: soft. Absent: tenderness Extremities exam: Present: pedal edema Neurological exam: Present: alert Psychiatric exam: Present: normal affect, normal mood Skin exam: Present: other (Right leg wound) Course Vital Signs 05/07/24 05/07/24 10:15 10:24 Temperature 98.2 F Pulse Rate 109 H Respiratory 32 H Rate Blood Pressure 144/101 O2 Sat by Pulse 95 Oximetry Fraction of 50 Inspired Oxygen (FIO2) Medical Decision Making - Medical Decision Making Was pt. sent in by a medical professional or institution (, PA, SALES FLOOR ASSOCIATE, urgent care, hospital, or fci...) When possible be specific @ -Patient was transferred from [facility] Did you speak to anyone other than the patient for history (EMS, parent, family, police, friend...)? What history was obtained from this source @ -I did speak with transferring physician Dr. Willian Montano Did you review nursing and triage notes (agree or disagree)? Why? @ -I reviewed and agree with nursing and triage notes Were old charts reviewed (outside hosp., previous admission, EMS record, old EKG, old radiological studies, urgent care reports/EKG's, fci records)? Report findings @ -Chart reviewed from [facility] Differential Diagnosis (chest pain, altered mental status, abdominal pain women, abdominal pain men, vaginal bleeding, weakness, fever, dyspnea, syncope, headache, dizziness, GI bleed, back pain, seizure, CVA, palpatations, mental health, musculoskeletal)? @ -Differential Dyspnea: Coronary syndrome, arrhythmia, tamponade, asthma, COPD, pulmonary embolism, pneumonia, pneumothorax, pulmonary effusion, anaphylaxis, diabetic ketoacidosis, flailed chest, pulmonary contusion, diaphragmatic rupture, anemia, neuromuscular, this is not meant to be an all-inclusive list. EKG interpreted by me (3pts min.). @ -As above X-rays interpreted by me (1pt min.). @ -None done CT interpreted by me (1pt min.). @ -None done U/S interpreted by me (1pt. min.). @ -None done What testing was considered but not performed or refused? (CT, X-rays, U/S, labs)? Why? @ -None What meds were considered but not given or refused? Why? @ -Antibiotics considered for leg wound however this was started prior to transfer and will be deferred to infectious disease Did you discuss the management of the patient with other professionals (professionals i.e. , PA, SALES FLOOR ASSOCIATE, lab, RT, psych nurse, social media job titles, quarry manager, teacher, special forces warrant officer, upper caser)? Give summary @ -Case was discussed with Dr. Deal who will consult for pulmonary. Case also discussed with Dr. Km Santiago who will admit covering Dr. Jacinto Was smoking cessation discussed for >3mins.? @ -No Was critical care preformed (if so, how long)? @ -31 minutes critical care time Were there social determinants of health that impacted care today? How? (Homelessness, low income, unemployed, alcoholism, drug addiction, transportation, low edu. Level, literacy, decrease access to med. care, alf, rehab)? @ -No Was there de-escalation of care discussed even if they declined (Discuss DNR or withdrawal of care, Hospice)? DNR status @ -No What co-morbidities impacted this encounter? (DM, HTN, Smoking, COPD, CAD, Cancer, CVA, ARF, Chemo, Hep., AIDS, mental health diagnosis, sleep apnea, morbid obesity)? @ -History of COPD Was patient admitted / discharged? Hospital course, mention meds given and route, prescriptions, significant lab abnormalities, going to OR and other pertinent info. @ -Hospital course Undiagnosed new problem with uncertain prognosis? @ -No Drug Therapy requiring intensive monitoring for toxicity (Heparin, Nitro, Insulin, Cardizem)? @ -Monitoring with BiPAP Were any procedures done? @ -No Diagnosis/symptom? @ -COPD, respiratory failure, leg wound Acute, or Chronic, or Acute on Chronic? @ -Acute on chronic, acute, chronic Uncomplicated (without systemic symptoms) or Complicated (systemic symptoms)? @ -Complicated with hypercapnia Side effects of treatment? @ -No Exacerbation, Progression, or Severe Exacerbation? @ -No Poses a threat to life or bodily function? How? (Chest pain, [place], [place], pneumonia, PE, COPD, DKA, ARF, appy, cholecystitis, CVA, Diverticulitis, Homicidal, Suicidal, threat to staff... and all critical care pts) @ -Threat to pulmonary function Critical Care Time Critical Care Time: Yes Disposition Clinical Impression: Acute respiratory failure, Acute exacerbation of chronic obstructive pulmonary disease Disposition: ADMITTED IP TO THIS HOSP Condition: Serious Is patient prescribed a controlled substance at d/c from ED?: No Referrals: Parish Iverson MD [Primary Care Provider] - 1-2 days Time of Disposition: 11:31
[2024-05-07] MEDS ORDERED: NALOXONE 0.4 MG/ML 1 ML VIAL IVP PRN (11:36)
[2024-05-07] MEDS ORDERED: IPRATROPIUM-ALBUTEROL 3 ML NEB INHALATION PRN (11:36)
[2024-05-07] MEDS: methylPREDNISolone SOD SUCCI 125 MG/2 ML VIAL IV STA (12:28)
[2024-05-07] MEDS: LEVOFLOXACIN 500MG-D5W PMX 500 MG in DEXTROSE/WATER 1 100ML.BAG IVPB ONE (12:28)
[2024-05-07] MEDS: IPRATROPIUM-ALBUTEROL 3 ML NEB INHALATION SCH (12:53)
[2024-05-07] MEDS: HYDROcodone/APAP 7.5-325MG 1 EACH TAB PO PRN (13:02)
[2024-05-07] MEDS ORDERED: NON FORMULARY DRUG (Naloxone Hcl [Narcan] 4 MG Each) NASAL PRN (15:31)
[2024-05-07] MEDS ORDERED: CALCIUM CARBONATE 500 MG CHEWABLE PO PRN (15:31)
[2024-05-07] MEDS ORDERED: HYDROcodone/APAP 7.5-325MG 1 EACH TAB PO PRN (15:31)
[2024-05-07] MEDS ORDERED: PROCHLORPERAZINE 10 MG TAB PO PRN (15:31)
--- NOTE | 2024-05-07 15:31 | P.CNPUL ---
History of Present Illness Consult date: 05/07/24 Reason for consult: dyspnea History of present illness: This is a 59-year-old male patient who was hospitalized with worsening shortness of breath. The patient was discharged to [facility] on 05/05/2024 after having a prolonged hospitalization during which the patient was treated for right lower extremity wound/abscess with secondary cellulitis that failed outpatient treatment. The patient required debridement and the cultures were positive for MRSA and the patient was sent to [facility] with a course of oral antibiotics including Keflex and doxycycline. Nevertheless, he ended up coming back with worsening shortness of breath. Chest x-ray shows some small bilateral pleural effusion. The patient's chest x-ray was most consistent with CHF. In the emergency, the patient was quite hypercapnic and based on that, the patient was placed on a B iPAP pressure of 12 over 5 cm of water. He is awake and alert and is currently on FiO2 of 50%. No signs of any CO2 narcosis. The white cell count is at 5.7 with a hemoglobin 13.9 and a platelet count of 188. BUN 31 and a creatinine of 1.2. And the patient's sodium levels at 143, serum bicarb is at 35. The patient is currently on DuoNeb nebulized treatments [id number]. The patient was started on IV Solu-Medrol suspecting also component of COPD exacerbation. Cardiac enzymes has not been checked. proBNP has not been checked. Lactic acid level currently is at 0.9. Denies having any chest pain. No significant sputum production. Hemodynamically stable. This patient's comorbidities are multiple. The patient has CHF with preserved LV function. Most recent left ventricular ejection fraction has been within normal limits. The patient also has also diabetes mellitus type 2, chronic stage IIIa kidney disease, hypertension, paroxysmal atrial fibrillation and the patient has undergone recent cardioversion on 04/08/2024. He is morbidly obese with a BMI of 47 and is known to have obstructive sleep apnea, noncompliant to CPAP therapy. He has been hospitalized also in the past with signs of fluid overload. Review of Systems CONSTITUTIONAL: reports recent weight gain, but is unable to quantify EYES: Denies change in vision. EARS, NOSE, MOUTH, THROAT: Denies headaches, denies sore throat. CARDIOVASCULAR: Denies chest pain, palpitations or syncopal episodes. Admits orthopnea. He has a hospital bed at home and sleeps with the head elevated. RESPIRATORY: see HPI GASTROINTESTINAL: Denies change in appetite, abdominal pain, nausea and vomiting, or diarrhea GENITOURINARY: Denies hematuria, denies infections. MUSKULOSKELETAL:admits increasing bilateral lower extremity swelling and pain. INTEGUMENTARY:reports multiple nonhealing superficial ulcers on his legs NEUROLOGICAL: Denies recent memory loss, no recent seizure activity. PSYCHIATRIC: Denies anxiety, denies depression. HEMATOLOGIC/LYMPHATIC: Denies anemia, denies enlarged lymph node 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 History of Any Multi-Drug Resistant Organisms: MRSA, Other MDRO Date of last positivie culture/infection: 11/15/22 MDRO Source:: Left Leg Past Surgical History: Hernia Repair, Joint Replacement, Orthopedic Surgery Additional Past Surgical History / Comment(s): RT ARMAND, rt foot SX, Past Anesthesia/Blood Transfusion Reactions: No Reported Reaction Past Psychological History: Depression Smoking Status: Former smoker Past Alcohol Use History: None Reported Past Drug Use History: None Reported - Past Family History Mother Family Medical History: No Reported History Medications and Allergies Home Medications Medication Instructions Recorded Confirmed Type hydrOXYzine pamoate [Vistaril] 50 mg PO HS PRN 07/09/22 05/07/24 History Atorvastatin [Lipitor] 10 mg PO HS 08/01/22 05/07/24 History Dapagliflozin Propanediol [Farxiga] 10 mg PO DAILY 30 Days #30 tab 09/10/22 05/07/24 Rx busPIRone HCl [Buspar] 5 mg PO TID 30 Days #90 tab 09/10/22 05/07/24 Rx Apixaban [Eliquis] 5 mg PO BID 12/12/23 05/07/24 History Finasteride [Proscar] 5 mg PO DAILY 12/12/23 05/07/24 History Sertraline [Zoloft] 50 mg PO DAILY 12/12/23 05/07/24 History Albuterol Sulfate [Ventolin HFA] 1 puff INHALATION RT-BID 04/04/24 05/07/24 History Amiodarone [Cordarone] 400 mg PO BID tab 04/22/24 05/07/24 Rx Budesonide-Formot 160-4.5 Mcg 2 puff INHALATION RT-BID each 04/22/24 05/07/24 Rx [Symbicort 160-4.5 Mcg Inhaler] Calcium Carbonate [Tums] 1,000 mg PO QID PRN tab 04/22/24 05/07/24 Rx Insulin Detemir (Levemir) [Levemir] 15 unit SQ BID@0700,2100 each 04/22/24 05/07/24 Rx Ipratropium-Albuterol Nebulize 3 ml INHALATION RT-Q2H PRN each 04/22/24 05/07/24 Rx [Duoneb 0.5 mg-3 mg/3 ml Soln] Ipratropium-Albuterol Nebulize 3 ml INHALATION RT-QID each 04/22/24 05/07/24 Rx [Duoneb 0.5 mg-3 mg/3 ml Soln] Metoprolol Tartrate [Lopressor] 150 mg PO BID tab 04/22/24 05/07/24 Rx Pantoprazole [Protonix] 40 mg PO AC-BID tab 04/22/24 05/07/24 Rx Spironolactone [Aldactone] 12.5 mg PO DAILY tab 04/22/24 05/07/24 Rx diphenhydrAMINE [Benadryl] 25 mg PO BID PRN cap 04/22/24 05/07/24 Rx predniSONE See Taper PO DIRECTED #30 tab 04/22/24 05/07/24 Rx 0.9 % Sodium Chloride [Sodium 10 ml IV BID 05/01/24 05/07/24 History Chloride Flush] Acetaminophen [Tylenol] 650 mg PO Q6H PRN 05/01/24 05/07/24 History INSULIN ASPART (NovoLOG) [NovoLOG See Protocol SQ ACHS 05/01/24 05/07/24 History (formulary)] Naloxone HCl [Narcan] 4 mg NASAL DIRECTED PRN 05/01/24 05/07/24 History Prochlorperazine [Compazine] 10 mg PO Q8H PRN 05/01/24 05/07/24 History Tamsulosin [Flomax] 0.4 mg PO DAILY 05/01/24 05/07/24 History Torsemide [Demadex] 10 mg PO DAILY 05/01/24 05/07/24 History ALPRAZolam [Xanax] 0.25 mg PO TID #6 tab 05/05/24 05/07/24 Rx Cephalexin [Keflex] 500 mg PO Q6HR 10 Days #40 cap 05/05/24 05/07/24 Rx Doxycycline [Vibramycin] 100 mg PO BID 10 Days #20 capsule 05/05/24 05/07/24 Rx HYDROcodone/APAP 7.5-325MG [[place] 1 tab PO Q6HR PRN #6 tab 05/05/24 05/07/24 Rx 7.5-325] Pregabalin [Lyrica] 150 mg PO BID #6 cap 05/05/24 05/07/24 Rx SILVER sulfADIAZINE Cream 1 applic TOPICAL DAILY each 05/05/24 05/07/24 Rx [Silvadene 1% Cream] Allergies Allergy/AdvReac Type Severity Reaction Status Date / Time No Known Allergies Allergy Verified 05/07/24 14:00 Physical Exam Vitals: Vital Signs Temp Pulse Resp BP Pulse Ox FiO2 05/07/24 14:31 50 05/07/24 13:00 98 20 135/93 100 05/07/24 12:00 105 H 24 133/79 98 05/07/24 10:24 50 05/07/24 10:15 98.2 F 109 H 32 H 144/101 95 Intake and Output 05/07/24 05/07/24 05/07/24 06:59 14:59 22:59 Other: Weight 158.757 kg Physical exam: Reveals 62-year-old white male patient, morbidly obese currently on a BiPAP pressure of 12/5 with an FiO2 of 50% HEENT examination is grossly unremarkable. Mucous membranes are moist. No oral lesions. Neck supple. Full range of motion. No adenopathy thyromegaly or neck vein distention. Cardiovascular examination reveals an irregular rhythm and rate. S1-S2 normal. No S3 or S4. No discernible murmur noted. Lungs reveal diminished bilateral breath sounds. No crackles rhonchi or wheezes, diminished breath sounds Or wheezes throughout the lung gimenez bilaterally Abdomen soft bowel sounds are heard. No masses or tenderness. Extremities reveal 3+ bilateral lower extremity pitting edema. Blistering cellulitis to right lower extremity wrapped with sterile dressing Skin: As noted above Neurologic: Alert oriented x 3 no gross focal deficit Psychiatric: Normal mood affect and normal to status examination Results - Diagnostic Findings Chest x-ray: image reviewed Assessment and Plan Plan: Acute on chronic hypoxemic, and hypercapnic respiratory failure, secondary to an exacerbation of chronic diastolic congestive heart failure along with a component of COPD exacerbation. Chest x-ray showing cardiomegaly, pulmonary vascular congestion, interstitial edema and some small bilateral pleural effusion. The patient would benefit from BiPAP, diuretic and bronchodilators and steroids. No signs of any CO2 narcosis and the patient is tolerating the BiPAP reasonably well at this point in time. Very severe chronic obstructive pulmonary disease, with an FEV1 22% of predicted Obstructive sleep apnea, patient is noncompliant with his noninvasive positive airway pressure machine Morbid obesity, with a BMI of 48.7 kg/m Chronic stage IIIa kidney disease Atrial fibrillation, anticoagulated with Eliquis Chronic lower extremity edema, with multiple venous stasis ulcers, History of hypertension History of hyperlipidemia Former tobacco dependence Severe cellulitis of right lower extremity, s/p debridement, maintained on a combination of doxycycline and Keflex on outpatient basis. The patient positive for MRSA Plan: The patient will be kept on a BiPAP for now Start DuoNeb nebulized treatments [id number] IV Solu-Medrol IV Lasix 40 mg every 12 hours Obtain a follow-up blood gas in the morning May be able to transition him to a nasal cannula at a later stage Continue Keflex and doxycycline as planned on an outpatient basis Resume outpatient medications Chest x-ray was reviewed and will obtain a follow-up chest x-ray with next 24 to 48 hours Resume anticoagulation Will continue to follow
[2024-05-07] MEDS: methylPREDNISolone SOD SUCCI 125 MG/2 ML VIAL IV SCH (17:11)
[2024-05-07] MEDS: ALPRAZolam 0.25 MG TAB PO SCH (17:11)
[2024-05-07] MEDS: busPIRone HCl 5 MG TAB PO SCH (17:11)
[2024-05-07] MEDS: CEPHALEXIN 500 MG CAP PO SCH (17:11)
[2024-05-07] MEDS: PANTOPRAZOLE 40 MG TABLET PO SCH (17:11)
[2024-05-07] MEDS: HYDROcodone/APAP 10-325MG 1 EACH TAB PO PRN (17:29)
[2024-05-07 18:42] LABS: Basophils % (A) 0 %; Eosinophils % (A) 0 %; HCT 43.8 % (39.0-53.0); HGB 13.9 gm/dL (13.0-17.5); Hypochromasia Moderate; Lymphocytes # (A) 0.2 k/uL (1.0-4.8); Lymphocytes % (A) 5 %; MCHC 31.7 g/dL (31.0-37.0); MCV 91.5 fL (80.0-100.0); Monocytes # (A) 0.1 k/uL (0-1.0); Monocytes % (A) 3 %; Neutrophils # (A) 3.8 k/uL (1.3-7.7); Neutrophils % (A) 90 %; Platelet Count 163 k/uL (150-450); Poikilocytosis Slight; RBC 4.79 m/uL (4.30-5.90); WBC 4.2 k/uL (3.8-10.6)
[2024-05-07 18:49] LABS: African American GFR (CKD) >90 (>60 ml/min/1.73 sqM); Anion Gap 2 mmol/L; Blood Urea Nitrogen 37 mg/dL (9-20); Calcium 8.1 mg/dL (8.4-10.2); Carbon Dioxide 34 mmol/L (22-30); Chloride 100 mmol/L (98-107); Glucose 159 mg/dL (74-99); Non-African American GFR(CKD) >90 (>60 ml/min/1.73 sqM); Potassium 5.3 mmol/L (3.5-5.1); Sodium 136 mmol/L (137-145)
[2024-05-07] MEDS: METOPROLOL TARTRATE 50 MG TAB PO SCH (21:25)
[2024-05-07] MEDS: APIXABAN 5 MG TAB PO SCH (21:27)
[2024-05-07] MEDS: AMIODARONE 200 MG TAB PO SCH (21:27)
[2024-05-07] MEDS: ATORVASTATIN 10 MG TAB PO SCH (21:28)
[2024-05-07] MEDS: FUROSEMIDE 10 MG/ML 4 ML VIAL IV SCH (21:30)
[2024-05-07] MEDS: DOXYCYCLINE 100 MG CAP PO SCH (21:31)
--- NOTE | 2024-05-07 21:34 | P.HPIM ---
History of Present Illness H&P Date: 05/07/24 Chief Complaint: Shortness of breath Patient is a 59-year-old male with a past medical history of atrial fibrillation on anticoagulation with Eliquis, chronic CHF, COPD, hypertension, hyperlipidemia, obstructive sleep apnea, depression, prior history of smoking and morbid obesity BMI 47.5. Patient was recently discharged to [facility] on 04/04/2024 after prolonged hospitalization due to right lower extremity cellulitis/abscess and wound. Patient was discharged with a course of antibiotics of Keflex and doxycycline. Patient presented back to hospital due to worsening shortness of breath. Patient initially presented to [facility]. Chest x-ray showed small bilateral pleural effusions and CHF. Patient was placed on BiPAP. Denied any complaints of fever or chills. Complains of right lower extremity pain. Does have cough without any sputum production. Laboratory showed WBC 4.2 hemoglobin 13.9 and platelets 163 sodium 136 potassium 5.3 chloride 100 bicarb is 34 BUN 37 creatinine 0.88 and blood sugar 159 and calcium 8.1. Creatinine 0.9. Patient was given a dose of IV Solu-Medrol and IV Levaquin in the ER. Review of Systems Complete review of systems could not be obtained from the patient except as per HPI due to patient being on BiPAP. 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 History of Any Multi-Drug Resistant Organisms: MRSA, Other MDRO Date of last positivie culture/infection: 11/15/22 MDRO Source:: Left Leg Past Surgical History: Hernia Repair, Joint Replacement, Orthopedic Surgery Additional Past Surgical History / Comment(s): RT ARMAND, rt foot SX, Past Anesthesia/Blood Transfusion Reactions: No Reported Reaction Past Psychological History: Depression Smoking Status: Former smoker Past Alcohol Use History: None Reported Past Drug Use History: None Reported - Past Family History Mother Family Medical History: No Reported History Medications and Allergies Home Medications Medication Instructions Recorded Confirmed Type hydrOXYzine pamoate [Vistaril] 50 mg PO HS PRN 07/09/22 05/07/24 History Atorvastatin [Lipitor] 10 mg PO HS 08/01/22 05/07/24 History Dapagliflozin Propanediol [Farxiga] 10 mg PO DAILY 30 Days #30 tab 09/10/22 05/07/24 Rx busPIRone HCl [Buspar] 5 mg PO TID 30 Days #90 tab 09/10/22 05/07/24 Rx Apixaban [Eliquis] 5 mg PO BID 12/12/23 05/07/24 History Finasteride [Proscar] 5 mg PO DAILY 12/12/23 05/07/24 History Sertraline [Zoloft] 50 mg PO DAILY 12/12/23 05/07/24 History Albuterol Sulfate [Ventolin HFA] 1 puff INHALATION RT-BID 04/04/24 05/07/24 History Amiodarone [Cordarone] 400 mg PO BID tab 04/22/24 05/07/24 Rx Budesonide-Formot 160-4.5 Mcg 2 puff INHALATION RT-BID each 04/22/24 05/07/24 Rx [Symbicort 160-4.5 Mcg Inhaler] Calcium Carbonate [Tums] 1,000 mg PO QID PRN tab 04/22/24 05/07/24 Rx Insulin Detemir (Levemir) [Levemir] 15 unit SQ BID@0700,2100 each 04/22/24 05/07/24 Rx Ipratropium-Albuterol Nebulize 3 ml INHALATION RT-Q2H PRN each 04/22/24 05/07/24 Rx [Duoneb 0.5 mg-3 mg/3 ml Soln] Ipratropium-Albuterol Nebulize 3 ml INHALATION RT-QID each 04/22/24 05/07/24 Rx [Duoneb 0.5 mg-3 mg/3 ml Soln] Metoprolol Tartrate [Lopressor] 150 mg PO BID tab 04/22/24 05/07/24 Rx Pantoprazole [Protonix] 40 mg PO AC-BID tab 04/22/24 05/07/24 Rx Spironolactone [Aldactone] 12.5 mg PO DAILY tab 04/22/24 05/07/24 Rx diphenhydrAMINE [Benadryl] 25 mg PO BID PRN cap 04/22/24 05/07/24 Rx predniSONE See Taper PO DIRECTED #30 tab 04/22/24 05/07/24 Rx 0.9 % Sodium Chloride [Sodium 10 ml IV BID 05/01/24 05/07/24 History Chloride Flush] Acetaminophen [Tylenol] 650 mg PO Q6H PRN 05/01/24 05/07/24 History INSULIN ASPART (NovoLOG) [NovoLOG See Protocol SQ ACHS 05/01/24 05/07/24 History (formulary)] Naloxone HCl [Narcan] 4 mg NASAL DIRECTED PRN 05/01/24 05/07/24 History Prochlorperazine [Compazine] 10 mg PO Q8H PRN 05/01/24 05/07/24 History Tamsulosin [Flomax] 0.4 mg PO DAILY 05/01/24 05/07/24 History Torsemide [Demadex] 10 mg PO DAILY 05/01/24 05/07/24 History ALPRAZolam [Xanax] 0.25 mg PO TID #6 tab 05/05/24 05/07/24 Rx Cephalexin [Keflex] 500 mg PO Q6HR 10 Days #40 cap 05/05/24 05/07/24 Rx Doxycycline [Vibramycin] 100 mg PO BID 10 Days #20 capsule 05/05/24 05/07/24 Rx HYDROcodone/APAP 7.5-325MG [Naco 1 tab PO Q6HR PRN #6 tab 05/05/24 05/07/24 Rx 7.5-325] Pregabalin [Lyrica] 150 mg PO BID #6 cap 05/05/24 05/07/24 Rx SILVER sulfADIAZINE Cream 1 applic TOPICAL DAILY each 05/05/24 05/07/24 Rx [Silvadene 1% Cream] Allergies Allergy/AdvReac Type Severity Reaction Status Date / Time No Known Allergies Allergy Verified 05/07/24 14:00 Physical Exam Vitals: Vital Signs Temp Pulse Resp BP Pulse Ox FiO2 05/07/24 12:00 105 H 24 133/79 98 05/07/24 10:24 50 05/07/24 10:15 98.2 F 109 H 32 H 144/101 95 Intake and Output 05/06/24 05/07/24 05/07/24 22:59 06:59 14:59 Other: Weight 158.757 kg PHYSICAL EXAMINATION: Patient is lying lying in the bed. Awake alert and oriented. Currently on BiPAP. Mild distress due to shortness of breath. HEENT: Normocephalic. Neck is supple. Pupils reactive. Nostrils clear. Oral cavity is moist. Neck reveals no JVD, carotid bruits, or thyromegaly. CHEST EXAMINATION: Trachea is central. Symmetrical expansion. Bibasilar diminished sounds. Expiratory wheezing. Scattered rhonchi. Using accessory muscles. CARDIAC: Normal S1, S2 with no gallops. No murmurs ABDOMEN: Soft. Bowel sounds normal. No organomegaly. No abdominal bruits. Extremities: Bilateral lower extremity 3+ edema with right lower extremity wound on the lateral side of the colon.. No clubbing or cyanosis Neurologically awake, alert, oriented x3. Able to move all extremities. No clarissa ss focal deficits noted Skin: No rash or skin lesions. Psychiatric: Coperative. Nonsuicidal Musculoskeletal: No joint swelling or deformity. Results CBC & Chem 7: 05/07/24 18:01 05/07/24 18:01 Thrombosis Risk Factor Assmnt - DVT/VTE Prophylaxis DVT/VTE Prophylaxis: Pharmacologic Prophylaxis ordered Assessment and Plan Assessment: Acute on chronic hypoxic and hypercapnic respiratory failure requiring BiPAP. Acute COPD exacerbation Acute on chronic CHF with preserved EF Paroxysmal atrial fibrillation on anticoagulation with Eliquis CKD stage III Recent admission with right lower extremity cellulitis s/p debridement and wound cultures growing MRSA and Acinetobacter species. Patient was discharged on Keflex and doxycycline. bilateral lower extremity venous stasis Obstructive sleep apnea Morbid history BMI 47.5 Hypertension Diabetes type 2 insulin-dependent Hyperemia Prior history of smoking Depression GI and DVT prophylaxis. Patient is on full anticoagulation. Plan: Patient is currently on BiPAP. Continue with IV Solu-Medrol and also started on Lasix 40 mg every 12 hourly. Follow-up proBNP level. Continue with DuoNebs and Symbicort. Follow-up repeat chest x-ray tomorrow. Continue with home medications and restart antibiotics. Insulin sliding scale and insulin regimen. Continue with pain management with Naco 7.5. Wound care will be consulted. ID and pulmonary was consulted. Prognosis guarded at this time. Continue to follow closely. Time with Patient: Greater than 30
[2024-05-07] MEDS: PREGABALIN 75 MG CAP PO SCH (22:20)
[2024-05-07] MEDS: INSULIN DETEMIR (LEVEMIR) 100 UNIT/ML SYR SQ SCH (22:22)
[2024-05-08] MEDS: ceFAZolin 3 GM in SODIUM CHLORIDE 0.9% 100 ML IVPB SCH (01:28)
[2024-05-08 05:15] LABS: African American GFR (CKD) >90 (>60 ml/min/1.73 sqM); Anion Gap 5 mmol/L; Blood Urea Nitrogen 47 mg/dL (9-20); Calcium 8.4 mg/dL (8.4-10.2); Carbon Dioxide 34 mmol/L (22-30); Chloride 99 mmol/L (98-107); Glucose 156 mg/dL (74-99); Non-African American GFR(CKD) 85 (>60 ml/min/1.73 sqM); Sodium 138 mmol/L (137-145)
[2024-05-08 05:24] LABS: NT-Pro-B-Type Natriuretic Pept 3060 pg/mL
[2024-05-08 05:26] LABS: Anisocytosis Slight; Basophils % (A) 0 %; Eosinophils % (A) 0 %; HCT 45.7 % (39.0-53.0); HGB 14.6 gm/dL (13.0-17.5); Hypochromasia Slight; Lymphocytes # (A) 0.4 k/uL (1.0-4.8); Lymphocytes % (A) 6 %; MCH 29.1 pg (25.0-35.0); MCV 90.9 fL (80.0-100.0); Mean Platelet Volume 8.7; Monocytes # (A) 0.3 k/uL (0-1.0); Monocytes % (A) 5 %; Neutrophils # (A) 5.9 k/uL (1.3-7.7); Neutrophils % (A) 88 %; Platelet Count 175 k/uL (150-450); Poikilocytosis Slight; RBC 5.03 m/uL (4.30-5.90); WBC 6.7 k/uL (3.8-10.6)
[2024-05-08 06:04] LABS: Potassium 5.4 mmol/L (3.5-5.1)
--- NOTE | 2024-05-08 07:56 | XR ---
EXAMINATION TYPE: XR chest 1V portable DATE OF EXAM: 05/08/2024 5:19 AM COMPARISON: None. CLINICAL INDICATION: Male, 59 years old with history of CHF, TECHNIQUE: XR chest 1V portable view(s) obtained. FINDINGS: The heart size is enlarged. The pulmonary vasculature is prominent. There is a small left pleural effusion. Right pleural effusion appears to be resolving. Correlate fo r volume overload or congestive heart failure . IMPRESSION: 1. Cortical correlation recommended for volume overload or congestive heart failure. Continued follow -up is recommended. 2. Small left pleural effusion [facility], , 05/08/2024 7:54 AM
--- NOTE | 2024-05-08 08:07 | P.CONS ---
History of Present Illness - Reason for Consult Consult date: 05/07/24 Leg wound Requesting physician: Mitch Pendleton - Chief Complaint Shortness of breath x 1 day - History of Present Illness Patient is a 59-year-old male with a past medical history significant for hypertension hyperlipidemia COPD heart failure with asthma atrial fibr illation recently admitted to the hospital with the patient did have right lower extremity infected hematoma patient did improved with the Zosyn however the culture did grew Acinetobacter baumannii that was sensitive to tetracycline patient was discharged to the detention yesterday on oral Keflex and doxycycline patient was complaining of shortness of breath yesterday before his discharge and continued to have worsening shortness of breath for the patient was sent back to the hospital from the local detention patient denies high- grade fever or any chills patient denies having any URI symptoms no chest pain mostly shortness of breath did have occasional cough but no sputum production no nausea vomiting abdominal pain or diarrhea patient noticed immediate swelling has slightly decreased did have mild dull aching pain without radiation or any purulent drainage on presentation to hospital the patient was afebrile and no fever have been recorded subsequently patient was not hypotensive hypoxic currently on a nasal cannula oxygen 3 L patient did have white count of 4.2 creatinine 0.88 potassium was 5.3 patient was continued on the oral doxycycline Infectious disease was consulted for further management of leg wound Review of Systems Positive point and negatives has been mentioned in the HPI, complete review of systems was performed and all other systems are negative 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 History of Any Multi-Drug Resistant Organisms: MRSA, Other MDRO Year Discovered:: 11/15/22 MDRO Source:: Left Leg Past Surgical History: Hernia Repair, Joint Replacement, Orthopedic Surgery Additional Past Surgical History / Comment(s): RT ARMAND, rt foot SX, Past Anesthesia/Blood Transfusion Reactions: No Reported Reaction Past Psychological History: Depression Smoking Status: Former smoker Past Alcohol Use History: None Reported Past Drug Use History: None Reported - Past Family History Mother Family Medical History: No Reported History Medications and Allergies Home Medications Medication Instructions Recorded Confirmed Type hydrOXYzine pamoate [Vistaril] 50 mg PO HS PRN 07/09/22 05/07/24 History Atorvastatin [Lipitor] 10 mg PO HS 08/01/22 05/07/24 History Dapagliflozin Propanediol [Farxiga] 10 mg PO DAILY 30 Days #30 tab 09/10/2201/21 Rx busPIRone HCl [Buspar] 5 mg PO TID 30 Days #90 tab 09/10/22 05/07/24 Rx Apixaban [Eliquis] 5 mg PO BID 12/12/23 05/07/24 History Finasteride [Proscar] 5 mg PO DAILY 12/12/23 05/07/24 History Sertraline [Zoloft] 50 mg PO DAILY 12/12/23 05/07/24 History Albuterol Sulfate [Ventolin HFA] 1 puff INHALATION RT-BID 04/04/24 05/07/24 History Amiodarone [Cordarone] 400 mg PO BID tab 04/22/24 05/07/24 Rx Budesonide-Formot 160-4.5 Mcg 2 puff INHALATION RT-BID each 04/22/24 05/07/24 Rx [Symbicort 160-4.5 Mcg Inhaler] Calcium Carbonate [Tums] 1,000 mg PO QID PRN tab 04/22/24 05/07/24 Rx Insulin Detemir (Levemir) [Levemir] 15 unit SQ BID@0700,2100 each 04/22/24 05/07/24 Rx Ipratropium-Albuterol Nebulize 3 ml INHALATION RT-Q2H PRN each 04/22/24 05/07/24 Rx [Duoneb 0.5 mg-3 mg/3 ml Soln] Ipratropium-Albuterol Nebulize 3 ml INHALATION RT-QID each 04/22/24 05/07/24 Rx [Duoneb 0.5 mg-3 mg/3 ml Soln] Metoprolol Tartrate [Lopressor] 150 mg PO BID tab 04/22/24 05/07/24 Rx Pantoprazole [Protonix] 40 mg PO AC-BID tab 04/22/24 05/07/24 Rx Spironolactone [Aldactone] 12.5 mg PO DAILY tab 04/22/24 05/07/24 Rx diphenhydrAMINE [Benadryl] 25 mg PO BID PRN cap 04/22/24 05/07/24 Rx predniSONE See Taper PO DIRECTED #30 tab 04/22/24 05/07/24 Rx 0.9 % Sodium Chloride [Sodium 10 ml IV BID 05/01/24 05/07/24 History Chloride Flush] Acetaminophen [Tylenol] 650 mg PO Q6H PRN 05/01/24 05/07/24 History INSULIN ASPART (NovoLOG) [NovoLOG See Protocol SQ ACHS 05/01/24 05/07/24 History (formulary)] Naloxone HCl [Narcan] 4 mg NASAL DIRECTED PRN 05/01/24 05/07/24 History Prochlorperazine [Compazine] 10 mg PO Q8H PRN 05/01/24 05/07/24 History Tamsulosin [Flomax] 0.4 mg PO DAILY 05/01/24 05/07/24 History Torsemide [Demadex] 10 mg PO DAILY 05/01/24 05/07/24 History ALPRAZolam [Xanax] 0.25 mg PO TID #6 tab 05/05/24 05/07/24 Rx Cephalexin [Keflex] 500 mg PO Q6HR 10 Days #40 cap 05/05/24 05/07/24 Rx Doxycycline [Vibramycin] 100 mg PO BID 10 Days #20 capsule 05/05/24 05/07/24 Rx HYDROcodone/APAP 7.5-325MG [[place] 1 tab PO Q6HR PRN #6 tab 05/05/24 05/07/24 Rx 7.5-325] Pregabalin [Lyrica] 150 mg PO BID #6 cap 05/05/24 05/07/24 Rx SILVER sulfADIAZINE Cream 1 applic TOPICAL DAILY each 05/05/24 05/07/24 Rx [Silvadene 1% Cream] Allergies Allergy/AdvReac Type Severity Reaction Status Date / Time No Known Allergies Allergy Verified 05/07/24 14:00 Physical Exam Vitals: Vital Signs Temp Pulse Resp BP Pulse Ox FiO2 05/07/24 10:24 50 05/07/24 10:15 98.2 F 109 H 32 H 144/101 95 Intake and Output 05/06/24 05/07/24 05/07/24 22:59 06:59 14:59 Other: Weight 158.757 kg GENERAL DESCRIPTION: Middle-aged male lying in bed, no distress. No tachypnea or accessory muscle of respiration use. HEENT: Shows Pallor , no scleral icterus. Oral mucous membrane is dry. NECK: Trachea central, no thyromegaly. LUNGS: Unlabored breathing. Decreased intensity breath sounds. HEART: S1, S2, regular rate and rhythm. No loud murmur ABDOMEN: Soft, no tenderness , guarding or rigidity, no organomegaly EXTREMITIES: Right lower extremity wound base looks clean some surrounding swelling no significant redness or foul-smelling drainage SKIN: No rash, no masses palpable. NEUROLOGICAL: The patient is awake, alert, oriented x3, mood and affect normal. Results CBC & Chem 7: 05/08/24 04:32 05/08/24 04:32 Assessment and Plan (1) Wound of right lower extremity Current Visit: Yes Status: Acute Code(s): S81.801A - UNSPECIFIED OPEN WOUND, RIGHT LOWER LEG, INITIAL ENCOUNTER SNOMED Code(s): 66502791229108555 (2) Cellulitis of right lower extremity Current Visit: No Status: Acute Code(s): L03.115 - CELLULITIS OF RIGHT LOWER LIMB SNOMED Code(s): 48119919435656868 Plan: 1patient presented to hospital with increasing shortness of breath possible related underlying cardiopulmonary condition clinically not behaving as pneumonia with no fever or elevated white count. Pulmonary has been consulted for further management 2patient with a recent right lower extremity infected hematoma s/p drainage with a wound with developed deep wound with slough tissue and no significant surrounding redness 3-we will continue patient on oral doxycycline however switch To cefazolin while inpatient 4-local wound care to the right lower extremity wound with the Aquacel silver dressing change daily followed by Gonzalez wrap to keep the swelling down We will follow on clinical condition and cultures to further adjust medication if needed Thank you for this consultation we will follow the patient along with you Dictation was produced using [employer]TM) by [employer] dictation software. please excuse any grammatical, word or spelling errors. Time with Patient: Greater than 30
[2024-05-08] MEDS: SPIRONOLACTONE 25 MG TAB PO SCH (09:48)
[2024-05-08] MEDS: FINASTERIDE 5 MG TAB PO SCH (09:49)
[2024-05-08] MEDS: DAPAGLIFLOZIN PROPANEDIOL 10 MG TABLET PO SCH (09:49)
[2024-05-08] MEDS: TAMSULOSIN 0.4 MG CAP.ER.24H PO SCH (09:49)
[2024-05-08] MEDS: SERTRALINE 50 MG TAB PO SCH (09:49)
[2024-05-08] MEDS ORDERED: LEVOFLOXACIN 500MG-D5W PMX 500 MG in DEXTROSE/WATER 1 100ML.BAG IVPB SCH (12:00)
--- NOTE | 2024-05-08 12:58 | P.PN ---
Subjective Progress Note Date: 05/08/24 Principal diagnosis: Reason for follow-up is right lower extremity wound and cellulitis Patient is a 59-year-old male with a past medical history significant for hypertension hyperlipidemia COPD heart failure with asthma atrial fibrillation recently admitted to the hospital with the patient did have right lower extremity infected hematoma presenting back to the hospital for worsening shortness of breath. On today's evaluation that is, 05/08/2024, Patient is afebrile patient is currently on 3 L current oxygen still complaining of shortness of breath but denies any chest pain or cough no nausea vomiting, denies or any worsening with right lower extremity wound any abdominal pain and no diarrhea though still asking for more pain medication. Patient white count 6.7 creatinine 0.97 Objective - Vital Signs Vital signs: Vital Signs Temp 98.8 F 05/08/24 08:00 Pulse 80 05/08/24 11:54 Resp 22 05/08/24 11:51 BP 146/94 05/08/24 11:51 Pulse Ox 99 05/08/24 07:09 FiO2 50 05/08/24 07:52 Intake & Output 05/07/24 05/08/24 05/08/24 18:59 06:59 18:59 Weight 158.757 kg - Exam GENERAL DESCRIPTION: Middle-age male lying in bed in no distress RESPIRATORY SYSTEM: Unlabored breathing , decreased breath sounds at bases HEART: S1 S2 regular rate and rhythm , ABDOMEN: Soft , no tenderness EXTREMITIES: Right leg wound is currently dressed - Labs CBC & Chem 7: 05/08/24 04:32 05/08/24 04:32 Labs: Abnormal Lab Results - Last 24 Hours (Table) 05/07/24 05/07/24 05/08/24 Range/Units 18:01 18:01 04:32 RDW 16.0 H 16.0 H (11.5-15.5) % Lymphocytes # 0.2 L 0.4 L (1.0-4.8) k/uL Sodium 136 L (137-145) mmol/L Potassium 5.3 H (3.5-5.1) mmol/L Carbon Dioxide 34 H (22-30) mmol/L BUN 37 H (9-20) mg/dL Glucose 159 H (74-99) mg/dL Calcium 8.1 L (8.4-10.2) mg/dL 05/08/24 Range/Units 04:32 RDW (11.5-15.5) % Lymphocytes # (1.0-4.8) k/uL Sodium (137-145) mmol/L Potassium 5.4 H (3.5-5.1) mmol/L Carbon Dioxide 34 H (22-30) mmol/L BUN 47 H (9-20) mg/dL Glucose 156 H (74-99) mg/dL Calcium (8.4-10.2) mg/dL Microbiology - Last 24 Hours (Table) 05/07/24 12:39 Gram Stain - Preliminary Leg - Right Wound Culture - Preliminary Gram Neg Bacilli Assessment and Plan (1) Wound of right lower extremity Current Visit: Yes Status: Acute Code(s): S81.801A - UNSPECIFIED OPEN WOUND, RIGHT LOWER LEG, INITIAL ENCOUNTER SNOMED Code(s): 85772769982755366 (2) Cellulitis of right lower extremity Current Visit: No Status: Acute Code(s): L03.115 - CELLULITIS OF RIGHT LOWER LIMB SNOMED Code(s): 27245140850958173 Plan: 1patient presented to hospital with increasing shortness of breath possible related underlying cardiopulmonary condition clinically not behaving as pneumonia with no fever or elevated white count. Pulmonary has been consulted for further management 2patient with a recent right lower extremity infected hematoma s/p drainage with a wound with developed deep wound with slough tissue and no significant surrounding redness 3-patient to continue-local wound care to the right lower extremity wound with the Aquacel silver dressing change daily followed by Gonzalez wrap to keep the swelling down 4patient to continue with the doxycycline, will switch cefazolin to cefepime for better gram-negative coverage Dictation was produced using [employer] dictation software. please excuse any grammatical, word or spelling errors. Time with Patient: Less than 30
--- NOTE | 2024-05-08 14:59 | P.PN ---
Subjective Progress Note Date: 05/08/24 This is a 59-year-old male patient who was hospitalized with worsening shortness of breath. The patient was discharged to [facility] on 05/05/2024 after having a prolonged hospitalization during which the patient was treated for right lower extremity wound/abscess with secondary cellulitis that failed outpatient treatment. The patient required debridement and the cultures were positive for MRSA and the patient was sent to [facility] with a course of oral antibiotics including Keflex and doxycycline. Nevertheless, he ended up coming back with worsening shortness of breath. Chest x-ray shows some small bilateral pleural effusion. The patient's chest x-ray was most consistent with CHF. In the emergency, the patient was quite hypercapnic and based on that, the patient was placed on a BiPAP pressure of 12 over 5 cm of water. He is awake and alert and is currently on FiO2 of 50%. No signs of any CO2 narcosis. The white cell count is at 5.7 with a hemoglobin 13.9 and a platelet count of 188. BUN 31 and a creatinine of 1.2. And the patient's sodium levels at 143, serum bicarb is at 35. The pat ient is currently on DuoNeb nebulized treatments [id number]. The patient was started on IV Solu-Medrol suspecting also component of COPD exacerbation. Cardiac enzymes has not been checked. proBNP has not been checked. Lactic acid level currently is at 0.9. Denies having any chest pain. No significant sputum production. Hemodynamically stable. This patient's comorbidities are multiple. The patient has CHF with preserved LV function. Most recent left ventricular ejection fraction has been within normal limits. The patient also has also diabetes mellitus type 2, chronic stage IIIa kidney disease, hypertension, paroxysmal atrial fibrillation and the patient has undergone recent cardioversion on 04/08/2024. He is morbidly obese with a BMI of 47 and is known to have obstructive sleep apnea, noncompliant to CPAP therapy. He has been hospitalized also in the past with signs of fluid overload. He was 22,024, the patient is being seen for a follow-up. on the patient just got transferred to the medical floor. This morning, the patient is currently on 3 days of oxygen by nasal cannula the patient was taken off the BiPAP. Started on diuretics yesterday and the fluid balance has been negative and is producing adequate amount of urine output. BUN is 47 with a creatinine of 0.9. Potassium is at 5.4 with a sodium level of 138. WBC count is 6.7 with a hemoglobin 14.6. Seen by infectious disease. Started on cefepime IV and doxycycline. Repeat wound culture showing gram-negative bacillus. Objective - Vital Signs Vital signs: Vital Signs Temp 98.8 F 05/08/24 08:00 Pulse 81 05/08/24 08:04 Resp 22 05/08/24 08:00 BP 157/89 05/08/24 08:00 Pulse Ox 99 05/08/24 07:09 FiO2 50 05/08/24 07:52 Intake & Output 05/07/24 05/08/24 05/08/24 18:59 06:59 18:59 Weight 158.757 kg - Exam Physical exam: Reveals 62-year-old white male patient, morbidly obese currently on a BiPAP pressure of 12/5 with an FiO2 of 50% HEENT examination is grossly unremarkable. Mucous membranes are moist. No oral lesions. Neck supple. Full range of motion. No adenopathy thyromegaly or neck vein distention. Cardiovascular examination reveals an irregular rhythm and rate. S1-S2 normal. No S3 or S4. No discernible murmur noted. Lungs reveal diminished bilateral breath sounds. No crackles rhonchi or wheezes, diminished breath sounds Or wheezes throughout the lung gimenez bilaterally Abdomen soft bowel sounds are heard. No masses or tenderness. Extremities reveal 3+ bilateral lower extremity pitting edema. Blistering cellulitis to right lower extremity wrapped with sterile dressing Skin: As noted above Neurologic: Alert oriented x 3 no gross focal deficit Psychiatric: Normal mood affect and normal to status examination - Labs CBC & Chem 7: 05/08/24 04:32 05/08/24 04:32 Labs: Abnormal Lab Results - Last 24 Hours (Table) 05/07/24 05/07/24 05/08/24 Range/Units 18:01 18:01 04:32 RDW 16.0 H 16.0 H (11.5-15.5) % Lymphocytes # 0.2 L 0.4 L (1.0-4.8) k/uL Sodium 136 L (137-145) mmol/L Potassium 5.3 H (3.5-5.1) mmol/L Carbon Dioxide 34 H (22-30) mmol/L BUN 37 H (9-20) mg/dL Glucose 159 H (74-99) mg/dL Calcium 8.1 L (8.4-10.2) mg/dL 05/08/24 Range/Units 04:32 RDW (11.5-15.5) % Lymphocytes # (1.0-4.8) k/uL Sodium (137-145) mmol/L Potassium 5.4 H (3.5-5.1) mmol/L Carbon Dioxide 34 H (22-30) mmol/L BUN 47 H (9-20) mg/dL Glucose 156 H (74-99) mg/dL Calcium (8.4-10.2) mg/dL Microbiology - Last 24 Hours (Table) 05/07/24 12:39 Gram Stain - Preliminary Leg - Right Wound Culture - Preliminary Gram Neg Bacilli Assessment and Plan Plan: Acute on chronic hypoxemic, and hypercapnic respiratory failure, secondary to an exacerbation of chronic diastolic congestive heart failure along with a component of COPD exacerbation. Chest x-ray showing cardiomegaly, pulmonary vascular congestion, interstitial edema and some small bilateral pleural effusion. The patient would benefit from BiPAP, diuretic and bronchodilators and steroids. No signs of any CO2 narcosis and the patient is tolerating the BiPAP reasonably well at this point in time. The patient is currently off BiPAP and is on 3 days of oxygen by nasal cannula. Very severe chronic obstructive pulmonary disease, with an FEV1 22% of predicted Obstructive sleep apnea, patient is noncompliant with his noninvasive positive airway pressure machine Morbid obesity, with a BMI of 48.7 kg/m Chronic stage IIIa kidney disease Atrial fibrillation, anticoagulated with Eliquis Chronic lower extremity edema, with multiple venous stasis ulcers, History of hypertension History of hyperlipidemia Former tobacco dependence Severe cellulitis of right lower extremity, s/p debridement, maintained on a combination of doxycycline and Keflex on outpatient basis. The patient positive for MRSA Plan: The patient will be kept on a BiPAP overnight and currently on 3 Suboxone by nasal cannula Continue DuoNeb nebulized treatments [id number] IV Solu-Medrol IV Lasix 40 mg every 12 hours Obtain a follow-up blood gas in the morning May be able to transition him to a nasal cannula at a later stage Continue cefepime and doxycycline Resume outpatient medications Chest x-ray in a.m. Continue anticoagulation Will continue to follow
[2024-05-08] MEDS: CEFEPIME 2 GM in SODIUM CHLORIDE 0.9% 100 ML IVPB SCH (16:24)
--- NOTE | 2024-05-08 22:48 | P.PN ---
Subjective Progress Note Date: 05/08/24 59-year-old male with a past medical history of atrial fibrillation on anticoagulation with Eliquis, chronic CHF, COPD, hypertension, hyperlipidemia, obstructive sleep apnea, depression, prior history of smoking and morbid obesity BMI 47.5. Patient was recently discharged to [facility] on 04/04/2024 after prolonged hospitalization due to right lower extremity cellulitis/abscess and wound. Patient was discharged with a course of antibiotics of Keflex and doxycycline. Patient presented back to hospital due to worsening shortness of breath. Patient initially presented to [facility]. Chest x-ray showed small bilateral pleural effusions and CHF. Patient was placed on BiPAP. Denied any complaints of fever or chills. Complains of right lower extremity pain. Does have cough without any sputum production. Laboratory showed WBC 4.2 hemoglobin 13.9 and platelets 163 sodium 136 potassium 5.3 chloride 100 bicarb is 34 BUN 37 creatinine 0.88 and blood sugar 159 and calcium 8.1. Creatinine 0.9. Patient was given a dose of IV Solu-Medrol and IV Levaquin in the ER. Objective - Vital Signs Vital signs: Vital Signs Temp 98.8 F 05/08/24 08:00 Pulse 80 05/08/24 11:54 Resp 22 05/08/24 11:51 BP 146/94 05/08/24 11:51 Pulse Ox 99 05/08/24 07:09 FiO2 50 05/08/24 07:52 Intake & Output 05/07/24 05/08/24 05/08/24 18:59 06:59 18:59 Intake Total 118 Balance 118 Weight 158.757 kg 158.757 kg Intake: Oral 118 - Exam Patient is lying lying in the bed. Awake alert and oriented. Currently on BiPAP. Mild distress due to shortness of breath. HEENT: Normocephalic. Neck is supple. Pupils reactive. Nostrils clear. Oral cavi ty is moist. Neck reveals no JVD, carotid bruits, or thyromegaly. CHEST EXAMINATION: Trachea is central. Symmetrical expansion. Bibasilar diminished sounds. Expiratory wheezing. Scattered rhonchi. Using accessory muscles. CARDIAC: Normal S1, S2 with no gallops. No murmurs ABDOMEN: Soft. Bowel sounds normal. No organomegaly. No abdominal bruits. Extremities: Bilateral lower extremity 3+ edema with right lower extremity wound on the lateral side of the colon.. No clubbing or cyanosis Neurologically awake, alert, oriented x3. Able to move all extremities. No gross focal deficits noted Skin: No rash or skin lesions. Psychiatric: Coperative. Nonsuicidal Musculoskeletal: No joint swelling or deformity. - Labs CBC & Chem 7: 05/08/24 04:32 05/08/24 04:32 Labs: Abnormal Lab Results - Last 24 Hours (Table) 05/07/24 05/07/24 05/08/24 Range/Units 18:01 18:01 04:32 RDW 16.0 H 16.0 H (11.5-15.5) % Lymphocytes # 0.2 L 0.4 L (1.0-4.8) k/uL Sodium 136 L (137-145) mmol/L Potassium 5.3 H (3.5-5.1) mmol/L Carbon Dioxide 34 H (22-30) mmol/L BUN 37 H (9-20) mg/dL Glucose 159 H (74-99) mg/dL Calcium 8.1 L (8.4-10.2) mg/dL 05/08/24 Range/Units 04:32 RDW (11.5-15.5) % Lymphocytes # (1.0-4.8) k/uL Sodium (137-145) mmol/L Potassium 5.4 H (3.5-5.1) mmol/L Carbon Dioxide 34 H (22-30) mmol/L BUN 47 H (9-20) mg/dL Glucose 156 H (74-99) mg/dL Calcium (8.4-10.2) mg/dL Microbiology - Last 24 Hours (Table) 05/07/24 12:39 Gram Stain - Preliminary Leg - Right Wound Culture - Preliminary Gram Neg Bacilli Assessment and Plan Assessment: Acute on chronic hypoxic and hypercapnic respiratory failure requiring BiPAP. Acute COPD exacerbation Acute on chronic CHF with preserved EF Paroxysmal atrial fibrillation on anticoagulation with Eliquis CKD stage III Recent admission with right lower extremity cellulitis s/p debridement and wound cultures growing MRSA and Acinetobacter species. Patient was discharged on Keflex and doxycycline. bilateral lower extremity venous stasis Obstructive sleep apnea Morbid history BMI 47.5 Hypertension Diabetes type 2 insulin-dependent Hyperemia Prior history of smoking Depression GI and DVT prophylaxis. Patient is on full anticoagulation. Plan: Patient is currently on BiPAP. Continue with IV Solu-Medrol and also started on Lasix 40 mg every 12 hourly. Follow-up proBNP level. Continue with DuoNebs and Symbicort. Follow-up repeat chest x-ray tomorrow. Continue with home medications and restart antibiotics. Insulin sliding scale and insulin regimen. Continue with pain management with [place] 7.5. Wound care will be consulted. ID and pulmonary was consulted. Prognosis guarded at this time. Continue to follow closely.
[2024-05-09 06:08] LABS: Glucose,Whole Blood 213 mg/dL (70-110)
[2024-05-09 08:12] LABS: ABG Base Excess 11.1 mmol/L; ABG Oxygen Saturation 92.6 % (94-97); ABG PCO2 69 mmHg (35-45); ABG PH 7.37 (7.35-7.45); ABG PO2 68 mmHg (83-108); ABG TCO2 42 mmol/L (19-24); Allen Test Performed? Yes
[2024-05-09 08:16] LABS: ABG HCO3 40 mmol/L (21-25)
--- NOTE | 2024-05-09 10:59 | XR ---
EXAMINATION TYPE: XR chest 1V DATE OF EXAM: 05/09/2024 COMPARISON: 05/08/2024 HISTORY: CHF TECHNIQUE: Single frontal view of the chest is obtained. FINDINGS: There is persistent marked cardiomegaly. Cephalization of pulmonary vasculature and small bilateral pleural effusions. There is no pneumothorax. IMPRESSION: No change in the acute cardiopulmonary disease. The findings are most consistent with mi ld to moderate CHF. [facility], , 05/09/2024 10:57 AM
[2024-05-09 11:20] LABS: Glucose,Whole Blood 193 mg/dL (70-110)
--- NOTE | 2024-05-09 13:47 | P.PN ---
Subjective Progress Note Date: 05/09/24 Principal diagnosis: Reason for follow-up is right lower extremity wound and cellulitis Patient is a 59-year-old male with a past medical history significant for hypertension hyperlipidemia COPD heart failure with asthma atrial fibrillation recently admitted to the hospital with the patient did have right lower extremity infected hematoma presenting back to the hospital for worsening shortness of breath. On today's evaluation that is, 05/09/2024, patient has been afebrile, patient is breathing comfortably and is currently on 3 L nasal oxygen, patient denies havin g any significant cough no chest pain, patient denies nausea vomiting or diarrhea and no abdominal pain denies any worsening pain to the right leg or any drainage. No CBC was done today culture from the right leg is currently growing gram- negative with ID sensitivity pending Objective - Vital Signs Vital signs: Vital Signs Temp 97.9 F 05/09/24 08:30 Pulse 84 05/09/24 11:48 Resp 19 05/09/24 08:30 BP 129/64 05/09/24 08:30 Pulse Ox 96 05/09/24 08:30 FiO2 50 05/09/24 11:36 Intake & Output 05/08/24 05/09/24 05/09/24 18:59 06:59 18:59 Intake Total 236 29 4820 Output Total 675 2800 3200 Balance -317 -8672 -2780 Weight 158.757 kg 164.2 kg Intake: IV 10 10 Invasive Line 2 10 10 Oral 358 1080 Output: Urine 675 2800 3200 Other: Voiding Method Urinal Urinal # Voids 1 - Exam GENERAL DESCRIPTION: Middle-age male lying in bed in no distress RESPIRATORY SYSTEM: Unlabored breathing , decreased breath sounds at bases HEART: S1 S2 regular rate and rhythm , ABDOMEN: Soft , no tenderness EXTREMITIES: Right leg wound is currently dressed - Labs CBC & Chem 7: 05/08/24 04:32 05/08/24 04:32 Labs: Abnormal Lab Results - Last 24 Hours (Table) 05/09/24 05/09/24 05/09/24 Range/Units 06:07 08:05 11:18 ABG pCO2 69 H (35-45) mmHg ABG pO2 68 L (83-108) mmHg ABG HCO3 40 H* (21-25) mmol/L ABG Total CO2 42 H (19-24) mmol/L ABG O2 Saturation 92.6 L (94-97) % POC Glucose (mg/dL) 213 H 193 H (70-110) mg/dL Microbiology - Last 24 Hours (Table) 05/07/24 12:19 Blood Culture - Preliminary Blood 05/07/24 12:39 Gram Stain - Preliminary Leg - Right Wound Culture - Preliminary Gram Neg Bacilli Assessment and Plan (1) Wound of right lower extremity Current Visit: Yes Status: Acute Code(s): S81.801A - UNSPECIFIED OPEN WOUND, RIGHT LOWER LEG, INITIAL ENCOUNTER SNOMED Code(s): 62016311576664227 (2) Cellulitis of right lower extremity Current Visit: No Status: Acute Code(s): L03.115 - CELLULITIS OF RIGHT LOWER LIMB SNOMED Code(s): 06150200115191756 Plan: 1patient presented to hospital with increasing shortness of breath possible related underlying cardiopulmonary condition clinically not behaving as pneumonia with no fever or elevated white count. Pulmonary has been consulted for further management 2patient with a recent right lower extremity infected hematoma s/p drainage with a wound with developed deep wound with slough tissue and no significant jansen rrounding redness 3-patient to continue-local wound care to the right lower extremity wound with the Aquacel silver dressing change daily followed by Gonzalez wrap to keep the swelling down 4patient local culture growing gram-negative with ID sensitivity pending continue with the cefepime and doxycycline and monitor clinical course closely Dictation was produced using [employer] dictation software. please excuse any grammatical, word or spelling errors. Time with Patient: Less than 30
--- NOTE | 2024-05-09 14:34 | P.PN ---
Subjective Progress Note Date: 05/09/24 This is a 59-year-old male patient who was hospitalized with worsening shortness of breath. The patient was discharged to [facility] on 05/05/2024 after having a prolonged hospitalization during which the patient was treated for right lower extremity wound/abscess with secondary cellulitis that failed outpatient treatment. The patient required debridement and the cultures were positive for MRSA and the patient was sent to [facility] with a course of oral antibiotics including Keflex and doxycycline. Nevertheless, he ended up coming back with worsening shortness of breath. Chest x-ray shows some small bilateral pleural effusion. The patient's chest x-ray was most consistent with CHF. In the emergency, the patient was quite hypercapnic and based on that, the patient was placed on a BiPAP pressure of 12 over 5 cm of water. He is awake and alert and is currently on FiO2 of 50%. No signs of any CO2 narcosis. The white cell count is at 5.7 with a hemoglobin 13.9 and a platelet count of 188. BUN 31 and a creatinine of 1.2. And the patient's sodium levels at 143, serum bicarb is at 35. The pat ient is currently on DuoNeb nebulized treatments [id number]. The patient was started on IV Solu-Medrol suspecting also component of COPD exacerbation. Cardiac enzymes has not been checked. proBNP has not been checked. Lactic acid level currently is at 0.9. Denies having any chest pain. No significant sputum production. Hemodynamically stable. This patient's comorbidities are multiple. The patient has CHF with preserved LV function. Most recent left ventricular ejection fraction has been within normal limits. The patient also has also diabetes mellitus type 2, chronic stage IIIa kidney disease, hypertension, paroxysmal atrial fibrillation and the patient has undergone recent cardioversion on 04/08/2024. He is morbidly obese with a BMI of 47 and is known to have obstructive sleep apnea, noncompliant to CPAP therapy. He has been hospitalized also in the past with signs of fluid overload. He was 22,024, the patient is being seen for a follow-up. on the patient just got transferred to the medical floor. This morning, the patient is currently on 3 days of oxygen by nasal cannula the patient was taken off the BiPAP. Started on diuretics yesterday and the fluid balance has been negative and is producing adequate amount of urine output. BUN is 47 with a creatinine of 0.9. Potassium is at 5.4 with a sodium level of 138. WBC count is 6.7 with a hemoglobin 14.6. Seen by infectious disease. Started on cefepime IV and doxycycline. Repeat wound culture showing gram-negative bacillus. On 05/09/2024, the patient sitting up in a chair and the patient is calm and co mfortable. Repeat blood gas was done today and showed a pH of 7.37 with a pCO2 of 69 and pO2 of 68. Follow-up chest x-ray from today shows no acute cardiopulmonary disease and there is cardiomegaly and mild pulm vessel congestion. No labs are available from today. BUN is 47 records of 0.9. Fluid balance is -3.1 L and the patient is headed towards a negative fluid balance. Remains on bronchodilators. Remains on IV Lasix 40 mg every 12 hours. Remains on IV cefepime. He is also on doxycycline. He is also on IV Solu-Medrol 60 mg IV push every 6 hours. Remains on anticoagulation with Eliquis 5 mg p.o. twice a day. Levemir insulin 15 units twice daily plus a sliding scale coverage. Objective - Vital Signs Vital signs: Vital Signs Temp 97.9 F 05/09/24 08:30 Pulse 84 05/09/24 11:48 Resp 19 05/09/24 08:30 BP 129/64 05/09/24 08:30 Pulse Ox 96 05/09/24 08:30 FiO2 50 05/09/24 11:36 Intake & Output 05/08/24 05/09/24 05/09/24 18:59 06:59 18:59 Intake Total 358 10 550 Output Total 675 2800 2400 Balance -568 -9953 -5353 Weight 158.757 kg 164.2 kg Intake: IV 10 10 Invasive Line 2 10 10 Oral 358 540 Output: Urine 675 2800 2400 Other: Voiding Method Urinal Urinal # Voids 1 - Exam Physical exam: Reveals 62-year-old white male patient, morbidly obese currently on a BiPAP pressure of 12/5 with an FiO2 of 50% HEENT examination is grossly unremarkable. Mucous membranes are moist. No oral lesions. Neck supple. Full range of motion. No adenopathy thyromegaly or neck vein distention. Cardiovascular examination reveals an irregular rhythm and rate. S1-S2 normal. No S3 or S4. No discernible murmur noted. Lungs reveal diminished bilateral breath sounds. No crackles rhonchi or wheezes, diminished breath sounds Or wheezes throughout the lung gimenez bilaterally Abdomen soft bowel sounds are heard. No masses or tenderness. Extremities reveal 3+ bilateral lower extremity pitting edema. Blistering cellulitis to right lower extremity wrapped with sterile dressing Skin: As noted above Neurologic: Alert oriented x 3 no gross focal deficit Psychiatric: Normal mood affect and normal to status examination - Labs CBC & Chem 7: 05/08/24 04:32 05/08/24 04:32 Labs: Abnormal Lab Results - Last 24 Hours (Table) 05/09/24 05/09/24 05/09/24 Range/Units 06:07 08:05 11:18 ABG pCO2 69 H (35-45) mmHg ABG pO2 68 L (83-108) mmHg ABG HCO3 40 H* (21-25) mmol/L ABG Total CO2 42 H (19-24) mmol/L ABG O2 Saturation 92.6 L (94-97) % POC Glucose (mg/dL) 213 H 193 H (70-110) mg/dL Microbiology - Last 24 Hours (Table) 05/07/24 12:19 Blood Culture - Preliminary Blood 05/07/24 12:39 Gram Stain - Preliminary Leg - Right Wound Culture - Preliminary Gram Neg Bacilli Assessment and Plan Plan: Acute on chronic hypoxemic, and hypercapnic respiratory failure, secondary to an exacerbation of chronic diastolic congestive heart failure along with a component of COPD exacerbation. Chest x-ray showing cardiomegaly, pulmonary vascular congestion, interstitial edema and some small bilateral pleural effusion. The patient would benefit from BiPAP, diuretic and bronchodilators and steroids. No signs of any CO2 narcosis and the patient is tolerating the BiPAP reasonably well at this point in time. The patient is currently off BiPAP and is on 3 liters oxygen by nasal cannula. Very severe chronic obstructive pulmonary disease, with an FEV1 22% of predicted Obstructive sleep apnea, patient is noncompliant with his noninvasive positive airway pressure machine Morbid obesity, with a BMI of 48.7 kg/m Chronic stage IIIa kidney disease Atrial fibrillation, anticoagulated with Eliquis Chronic lower extremity edema, with multiple venous stasis ulcers, History of hypertension History of hyperlipidemia Former tobacco dependence Severe cellulitis of right lower extremity, s/p debridement, maintained on a combination of doxycycline and Keflex on outpatient basis. The patient positive for MRSA Plan: The patient is currently on 3 L O2 nasal cannula Continue DuoNeb nebulized treatments [id number] IV Solu-Medrol IV Lasix 40 mg every 12 hours, excellent urine output and the patient remains in negative fluid balance Obtain a follow-up blood gas in the morning May be able to transition him to a nasal cannula at a later stage Continue cefepime and doxycycline Resume outpatient medications Chest x-ray in a.m. is consistent with CHF Acid-base status is improved on today's blood gas Continue anticoagulation Will continue to follow
[2024-05-09 16:56] LABS: Glucose,Whole Blood 336 mg/dL (70-110)
[2024-05-09] MEDS: INSULIN ASPART (NovoLOG) 100 UNIT/ML VIAL SQ SCH (17:14)
[2024-05-09 20:17] LABS: Glucose,Whole Blood 278 mg/dL (70-110)
--- NOTE | 2024-05-09 22:58 | P.PN ---
Subjective Progress Note Date: 05/09/24 59-year-old male with a past medical history of atrial fibrillation on anticoagulation with Eliquis, chronic CHF, COPD, hypertension, hyperlipidemia, obstructive sleep apnea, depression, prior history of smoking and morbid obesity BMI 47.5. Patient was recently discharged to medical [facility] on 04/04/2024 after prolonged hospitalization due to right lower extremity cellulitis/abscess and wound. Patient was discharged with a course of antibiotics of Keflex and doxycycline. Patient presented back to hospital due to worsening shortness of breath. Patient initially presented to [facility] and [facility]. Chest x-ray showed small bilateral pleural effusions and CHF. Patient was placed on BiPAP. Denied any complaints of fever or chills. Complains of right lower extremity pain. Does have cough without any sputum production. Laboratory showed WBC 4.2 hemoglobin 13.9 and platelets 163 sodium 136 potassium 5.3 chloride 100 bicarb is 34 BUN 37 creatinine 0.88 and blood sugar 159 and calcium 8.1. Creatinine 0.9. Patient was given a dose of IV Solu-Medrol and IV Levaquin in the ER. 05/09/2024 --patient is seen and evaluated in room at bedside; has been afebrile, patient is breathing comfortably and is currently on 3 L nasal oxygen, patient denies having any significant cough no chest pain, patient denies nausea vomiting or diarrhea and no abdominal pain denies any worsening pain to the right leg or any drainage. No CBC was done today culture from the right leg is currently growing gram- negative with ID sensitivity pending patient presented to hospital with increasing shortness of breath possible related underlying cardiopulmonary condition clinically not behaving as pneumonia with no fever or elevated white count. Pulmonary has been consulted for further management patient with a recent right lower extremity infected hematoma s/p drainage with a wound with developed deep wound with slough tissue and no significant surrounding redness -patient to continue-local wound care to the right lower extremity wound with the Aquacel silver dressing change daily followed by Gonzalez wrap to keep the swelling down patient local culture growing gram-negative with ID sensitivity pending continue with the cefepime and doxycycline and monitor clinical course closely Objective - Vital Signs Vital signs: Vital Signs Temp 97.9 F 05/09/24 08:30 Pulse 86 05/09/24 08:32 Resp 19 05/09/24 08:30 BP 129/64 05/09/24 08:30 Pulse Ox 96 05/09/24 08:30 FiO2 50 05/09/24 08:18 Intake & Output 05/08/24 05/09/24 05/09/24 18:59 06:59 18:59 Intake Total 358 10 550 Output Total 675 2800 Balance -397 -4788 550 Weight 158.757 kg 164.2 kg Intake: IV 10 10 Invasive Line 2 10 10 Oral 358 540 Output: Urine 675 2800 Other: Voiding Method Urinal Urinal # Voids 1 - Exam Patient is lying lying in the bed. Awake alert and oriented. Currently on BiPAP. Mild distress due to shortness of breath. HEENT: Normocephalic. Neck is supple. Pupils reactive. Nostrils clear. Oral cavity is moist. Neck reveals no JVD, carotid bruits, or thyromegaly. CHEST EXAMINATION: Trachea is central. Symmetrical expansion. Bibasilar diminished sounds. Expiratory wheezing. Scattered rhonchi. Using accessory muscles. CARDIAC: Normal S1, S2 with no gallops. No murmurs ABDOMEN: Soft. Bowel sounds normal. No organomegaly. No abdominal bruits. Extremities: Bilateral lower extremity 3+ edema with right lower extremity wound on the lateral side of the colon.. No clubbing or cyanosis Neurologically awake, alert, oriented x3. Able to move all extremities. No gross focal deficits noted Skin: No rash or skin lesions. Psychiatric: Coperative. Nonsuicidal Musculoskeletal: No joint swelling or deformity. - Labs CBC & Chem 7: 05/08/24 04:32 05/08/24 04:32 Labs: Abnormal Lab Results - Last 24 Hours (Table) 05/09/24 05/09/24 Range/Units 06:07 08:05 ABG pCO2 69 H (35-45) mmHg ABG pO2 68 L (83-108) mmHg ABG HCO3 40 H* (21-25) mmol/L ABG Total CO2 42 H (19-24) mmol/L ABG O2 Saturation 92.6 L (94-97) % POC Glucose (mg/dL) 213 H (70-110) mg/dL Microbiology - Last 24 Hours (Table) 05/07/24 12:19 Blood Culture - Preliminary Blood 05/07/24 12:39 Gram Stain - Preliminary Leg - Right Wound Culture - Preliminary Gram Neg Bacilli Assessment and Plan Assessment: Acute on chronic hypoxic and hypercapnic respiratory failure requiring BiPAP. Acute COPD exacerbation Acute on chronic CHF with preserved EF Paroxysmal atrial fibrillation on anticoagulation with Eliquis CKD stage III Recent admission with right lower extremity cellulitis s/p debridement and wound cultures growing MRSA and Acinetobacter species. Patient was discharged on Keflex and doxycycline. bilateral lower extremity venous stasis Obstructive sleep apnea Morbid history BMI 47.5 Hypertension Diabetes type 2 insulin-dependent Hyperemia Prior history of smoking Depression GI and DVT prophylaxis. Patient is on full anticoagulation. Plan: Patient is currently on BiPAP. Continue with IV Solu-Medrol and also started on Lasix 40 mg every 12 hourly. Follow-up proBNP level. Continue with DuoNebs and Symbicort. Follow-up repeat chest x-ray tomorrow. Continue with home medications and restart antibiotics. Insulin sliding scale and insulin regimen. Continue with pain management with [place] 7.5. Wound care will be consulted. ID and pulmonary was consulted. Prognosis guarded at this time. Continue to follow closely.
[2024-05-10 06:20] LABS: Glucose,Whole Blood 270 mg/dL (70-110)
[2024-05-10 08:57] LABS: Anisocytosis Slight; Basophils % (A) 0 %; Eosinophils % (A) 0 %; HCT 48.1 % (39.0-53.0); HGB 15.1 gm/dL (13.0-17.5); Hypochromasia Slight; Lymphocytes # (A) 0.3 k/uL (1.0-4.8); Lymphocytes % (A) 3 %; MCH 28.5 pg (25.0-35.0); MCHC 31.5 g/dL (31.0-37.0); MCV 90.5 fL (80.0-100.0); Monocytes # (A) 0.4 k/uL (0-1.0); Monocytes % (A) 4 %; Neutrophils # (A) 8.5 k/uL (1.3-7.7); Neutrophils % (A) 92 %; Platelet Count 164 k/uL (150-450); Poikilocytosis Slight; RBC 5.31 m/uL (4.30-5.90); RDW 16.8 % (11.5-15.5); WBC 9.2 k/uL (3.8-10.6)
[2024-05-10 10:20] LABS: African American GFR (CKD) 69 (>60 ml/min/1.73 sqM); Blood Urea Nitrogen 66 mg/dL (9-20); Calcium 8.5 mg/dL (8.4-10.2); Chloride 94 mmol/L (98-107); Glucose 148 mg/dL (74-99); Non-African American GFR(CKD) 60 (>60 ml/min/1.73 sqM); Potassium 4.4 mmol/L (3.5-5.1); Sodium 139 mmol/L (137-145)
[2024-05-10 10:26] LABS: Anion Gap 8 mmol/L; Carbon Dioxide 37 mmol/L (22-30)
[2024-05-10 12:01] LABS: Glucose,Whole Blood 235 mg/dL (70-110)
--- NOTE | 2024-05-10 12:03 | P.PN ---
Subjective Progress Note Date: 05/10/24 This is a 59-year-old male patient who was hospitalized with worsening shortness of breath. The patient was discharged to [facility] on 05/05/2024 after having a prolonged hospitalization during which the patient was treated for right lower extremity wound/abscess with secondary cellulitis that failed outpatient treatment. The patient required debridement and the cultures were positive for MRSA and the patient was sent to [facility] with a course of oral antibiotics including Keflex and doxycycline. Nevertheless, he ended up coming back with worsening shortness of breath. Chest x-ray shows some small bilateral pleural effusion. The patient's chest x-ray was most consistent with CHF. In the emergency, the patient was quite hypercapnic and based on that, the patient was placed on a BiPAP pressure of 12 over 5 cm of water. He is awake and alert and is currently on FiO2 of 50%. No signs of any CO2 narcosis. The white cell count is at 5.7 with a hemoglobin 13.9 and a platelet count of 188. BUN 31 and a creatinine of 1.2. And the patient's sodium levels at 143, serum bicarb is at 35. The pat ient is currently on DuoNeb nebulized treatments [id number]. The patient was started on IV Solu-Medrol suspecting also component of COPD exacerbation. Cardiac enzymes has not been checked. proBNP has not been checked. Lactic acid level currently is at 0.9. Denies having any chest pain. No significant sputum production. Hemodynamically stable. This patient's comorbidities are multiple. The patient has CHF with preserved LV function. Most recent left ventricular ejection fraction has been within normal limits. The patient also has also diabetes mellitus type 2, chronic stage IIIa kidney disease, hypertension, paroxysmal atrial fibrillation and the patient has undergone recent cardioversion on 04/08/2024. He is morbidly obese with a BMI of 47 and is known to have obstructive sleep apnea, noncompliant to CPAP therapy. He has been hospitalized also in the past with signs of fluid overload. He was 22,024, the patient is being seen for a follow-up. on the patient just got transferred to the medical floor. This morning, the patient is currently on 3 days of oxygen by nasal cannula the patient was taken off the BiPAP. Started on diuretics yesterday and the fluid balance has been negative and is producing adequate amount of urine output. BUN is 47 with a creatinine of 0.9. Potassium is at 5.4 with a sodium level of 138. WBC count is 6.7 with a hemoglobin 14.6. Seen by infectious disease. Started on cefepime IV and doxycycline. Repeat wound culture showing gram-negative bacillus. On 05/09/2024, the patient sitting up in a chair and the patient is calm and co mfortable. Repeat blood gas was done today and showed a pH of 7.37 with a pCO2 of 69 and pO2 of 68. Follow-up chest x-ray from today shows no acute cardiopulmonary disease and there is cardiomegaly and mild pulm vessel congestion. No labs are available from today. BUN is 47 records of 0.9. Fluid balance is -3.1 L and the patient is headed towards a negative fluid balance. Remains on bronchodilators. Remains on IV Lasix 40 mg every 12 hours. Remains on IV cefepime. He is also on doxycycline. He is also on IV Solu-Medrol 60 mg IV push every 6 hours. Remains on anticoagulation with Eliquis 5 mg p.o. twice a day. Levemir insulin 15 units twice daily plus a sliding scale coverage. 05/10/2024, patient is being seen for a follow-up. He is alternating within the BiPAP and oxygen at 3 L/min nasal cannula. Remains bronchospastic and wheezy. He still producing excellent urine output. BUN 66 with a creatinine of 1.2 and continues to have swelling in lower extremities. Sodium levels at 139. White cell count is at 9.2 with a hemoglobin of 15.1. Antibiotic coverage with doxycycline and ID is on the case. The cultures from the wound showed multidrug-resistant Acinetobacter. Objective - Vital Signs Vital signs: Vital Signs Temp 97.7 F 05/10/24 08:15 Pulse 89 05/10/24 08:15 Resp 17 05/10/24 08:15 BP 145/87 05/10/24 08:15 Pulse Ox 93 L 05/10/24 08:15 FiO2 50 05/10/24 00:45 Intake & Output 05/09/24 05/10/24 05/10/24 18:59 06:59 18:59 Intake Total 1650 10 Output Total 3900 1200 700 Balance -2250 -1200 -690 Weight 164 kg Intake: IV 30 10 Invasive Line 2 10 Invasive Line 3 10 Invasive Line 4 10 10 Oral 1620 Output: Urine 3900 1200 700 Other: Voiding Method Urinal Urinal Urinal - Exam Physical exam: Reveals 62-year-old white male patient, morbidly obese currently on a BiPAP pressure of 12/5 with an FiO2 of 50% HEENT examination is grossly unremarkable. Mucous membranes are moist. No oral lesions. Neck supple. Full range of motion. No adenopathy thyromegaly or neck vein distention. Cardiovascular examination reveals an irregular rhythm and rate. S1-S2 normal. No S3 or S4. No discernible murmur noted. Lungs reveal diminished bilateral breath sounds. No crackles rhonchi or wheezes, diminished breath sounds Or wheezes throughout the lung gimenez bilate rally Abdomen soft bowel sounds are heard. No masses or tenderness. Extremities reveal 3+ bilateral lower extremity pitting edema. Blistering cellulitis to right lower extremity wrapped with sterile dressing Skin: As noted above Neurologic: Alert oriented x 3 no gross focal deficit Psychiatric: Normal mood affect and normal to status examination - Labs CBC & Chem 7: 05/10/24 08:09 05/10/24 08:09 Labs: Abnormal Lab Results - Last 24 Hours (Table) 05/09/24 05/09/24 05/09/24 Range/Units 11:18 16:55 20:16 RDW (11.5-15.5) % Neutrophils # (1.3-7.7) k/uL Lymphocytes # (1.0-4.8) k/uL POC Glucose (mg/dL) 193 H 336 H 278 H (70-110) mg/dL 05/10/24 05/10/24 Range/Units 06:18 08:09 RDW 16.8 H (11.5-15.5) % Neutrophils # 8.5 H (1.3-7.7) k/uL Lymphocytes # 0.3 L (1.0-4.8) k/uL POC Glucose (mg/dL) 270 H (70-110) mg/dL Microbiology - Last 24 Hours (Table) 05/07/24 12:39 Gram Stain - Final Leg - Right Wound Culture - Final Acinetobacter rose/haemol 05/07/24 12:19 Blood Culture - Preliminary Blood Assessment and Plan Plan: Acute on chronic hypoxemic, and hypercapnic respiratory failure, secondary to an exacerbation of chronic diastolic congestive heart failure along with a component of COPD exacerbation. Chest x-ray showing cardiomegaly, pulmonary vascular congestion, interstitial edema and some small bilateral pleural effusion. The patient would benefit from BiPAP, diuretic and bronchodilators and steroids. No signs of any CO2 narcosis and the patient is tolerating the BiPAP reasonably well at this point in time. The patient is currently off BiPAP and is on 3 liters oxygen by nasal cannula. Very severe chronic obstructive pulmonary disease, with an FEV1 22% of predicted Obstructive sleep apnea, patient is noncompliant with his noninvasive positive airway pressure machine Morbid obesity, with a BMI of 48.7 kg/m Chronic stage IIIa kidney disease Atrial fibrillation, anticoagulated with Eliquis Chronic lower extremity edema, with multiple venous stasis ulcers, History of hypertension History of hyperlipidemia Former tobacco dependence Severe cellulitis of right lower extremity, s/p debridement, maintained on a combination of doxycycline and Keflex on outpatient basis. The patient positive for MRSA Plan: The patient is currently on 3 L O2 nasal cannula Continue DuoNeb nebulized treatments [id number] IV Solu-Medrol Change the patient to oral Lasix 40 mg twice a day Continue cefepime and doxycycline Wound culture showed no bacterial, multidrug-resistant and ID is on the case Resume outpatient medications Continue anticoagulation Will continue to follow
[2024-05-10] MEDS: INSULIN ASPART (NovoLOG) 100 UNIT/ML VIAL SQ SCH (12:06)
[2024-05-10] MEDS: HYDROCORTISONE 1% CREAM 30 GM TUBE TOPICAL PRN (12:07)
[2024-05-10] MEDS ORDERED: INSULIN ASPART (NovoLOG) 100 UNIT/ML VIAL SQ SCH (12:30)
--- NOTE | 2024-05-10 15:11 | P.PN ---
Subjective Progress Note Date: 05/10/24 Principal diagnosis: Reason for follow-up is right lower extremity wound and cellulitis Patient is a 59-year-old male with a past medical history significant for hypertension hyperlipidemia COPD heart failure with asthma atrial fibrillation recently admitted to the hospital with the patient did have right lower extremity infected hematoma presenting back to the hospital for worsening shortness of breath. On today's evaluation that is 05/10/2024, Patient is afebrile this morning patient is breathing more comfortably and is currently on a 3 to nasal cannula oxygen denies any chest pain or cough no abdominal pain or any worsening pain to right lower extremity still asking for more pain medication. Patient did have normal white count of 9.2, creatinine is 1.28 right leg culture growing a drug-resistant Citrobacter blood culture have been negative Objective - Vital Signs Vital signs: Vital Signs Temp 97.7 F 05/10/24 08:15 Pulse 89 05/10/24 08:15 Resp 17 05/10/24 08:15 BP 145/87 05/10/24 08:15 Pulse Ox 93 L 05/10/24 08:15 FiO2 50 05/10/24 00:45 Intake & Output 05/09/24 05/10/24 05/10/24 18:59 06:59 18:59 Intake Total 1650 10 Output Total 3900 1200 1300 Balance -2250 -1200 -1290 Weight 164 kg Intake: IV 30 10 Invasive Line 2 10 Invasive Line 3 10 Invasive Line 4 10 10 Oral 1620 Output: Urine 3900 1200 1300 Other: Voiding Method Urinal Urinal Urinal - Exam GENERAL DESCRIPTION: Middle-age male lying in bed in no distress RESPIRATORY SYSTEM: Unlabored breathing , decreased breath sounds at bases HEART: S1 S2 regular rate and rhythm , ABDOMEN: Soft , no tenderness EXTREMITIES: Right leg wound did have some surrounding maceration with no rednes s or warmth - Labs CBC & Chem 7: 05/10/24 08:09 05/10/24 08:09 Labs: Abnormal Lab Results - Last 24 Hours (Table) 05/09/24 05/09/24 05/09/24 Range/Units 11:18 16:55 20:16 RDW (11.5-15.5) % Neutrophils # (1.3-7.7) k/uL Lymphocytes # (1.0-4.8) k/uL Chloride (98-107) mmol/L Carbon Dioxide (22-30) mmol/L BUN (9-20) mg/dL Creatinine (0.66-1.25) mg/dL Glucose (74-99) mg/dL POC Glucose (mg/dL) 193 H 336 H 278 H (70-110) mg/dL 05/10/24 05/10/24 05/10/24 Range/Units 06:18 08:09 08:09 RDW 16.8 H (11.5-15.5) % Neutrophils # 8.5 H (1.3-7.7) k/uL Lymphocytes # 0.3 L (1.0-4.8) k/uL Chloride 94 L (98-107) mmol/L Carbon Dioxide 37 H (22-30) mmol/L BUN 66 H (9-20) mg/dL Creatinine 1.28 H (0.66-1.25) mg/dL Glucose 148 H (74-99) mg/dL POC Glucose (mg/dL) 270 H (70-110) mg/dL Microbiology - Last 24 Hours (Table) 05/07/24 12:39 Gram Stain - Final Leg - Right Wound Culture - Final Acinetobacter rose/haemol 05/07/24 12:19 Blood Culture - Preliminary Blood Assessment and Plan (1) Wound of right lower extremity Current Visit: Yes Status: Acute Code(s): S81.801A - UNSPECIFIED OPEN WOUND, RIGHT LOWER LEG, INITIAL ENCOUNTER SNOMED Code(s): 00566099189401290 (2) Cellulitis of right lower extremity Current Visit: No Status: Acute Code(s): L03.115 - CELLULITIS OF RIGHT LOWER LIMB SNOMED Code(s): 46609653979697786 Plan: 1patient presented to hospital with increasing shortness of breath possible related underlying cardiopulmonary condition clinically not behaving as pneumonia with no fever or elevated white count. Pulmonary has been consulted for further management 2patient with a recent right lower extremity infected hematoma s/p drainage with a wound with developed deep wound with slough tissue and no significant surrounding redness 3-patient to continue-local wound care to the right lower extremity wound with the dry Aquacel silver dressing no need for Silvadene local care discussed with the nursing staff 4patient local culture growing drug-resistant Acinetobacter possible colonizer as the patient not running any fever white count is normal and there was no evidence of any redness or warmth we will continue doxycycline however discont inue cefepime Dictation was produced using WebMD dictation software. please excuse any grammatical, word or spelling errors. Time with Patient: Less than 30
[2024-05-10 16:19] LABS: Glucose,Whole Blood 292 mg/dL (70-110)
[2024-05-10] MEDS: FUROSEMIDE 40 MG TAB PO SCH (16:43)
[2024-05-10 19:52] LABS: Glucose,Whole Blood 283 mg/dL (70-110)
--- NOTE | 2024-05-11 01:11 | P.PN ---
Subjective Progress Note Date: 05/10/24 59-year-old male with a past medical history of atrial fibrillation on anticoagulation with Eliquis, chronic CHF, COPD, hypertension, hyperlipidemia, obstructive sleep apnea, depression, prior history of smoking and morbid obesity BMI 47.5. Patient was recently discharged to medical [place] on 04/04/2024 after prolonged hospitalization due to right lower extremity cellulitis/abscess and wound. Patient was discharged with a course of antibiotics of Keflex and doxycycline. Patient presented back to hospital due to worsening shortness of breath. Patient initially presented to [facility]. Chest x-ray showed small bilateral pleural effusions and CHF. Patient was placed on BiPAP. Denied any complaints of fever or chills. Complains of right lower extremity pain. Does have cough without any sputum production. Laboratory showed WBC 4.2 hemoglobin 13.9 and platelets 163 sodium 136 potassium 5.3 chloride 100 bicarb is 34 BUN 37 creatinine 0.88 and blood sugar 159 and calcium 8.1. Creatinine 0.9. Patient was given a dose of IV Solu-Medrol and IV Levaquin in the ER. 05/09/2024 --patient is seen and evaluated in room at bedside; has been afebrile, patient is breathing comfortably and is currently on 3 L nasal oxygen, patient denies having any significant cough no chest pain, patient denies nausea vomiting or diarrhea and no abdominal pain denies any worsening pain to the right leg or any drainage. No CBC was done today culture from the right leg is currently growing gram- negative with ID sensitivity pending patient presented to hospital with increasing shortness of breath possible related underlying cardiopulmonary condition clinically not behaving as pneumonia with no fever or elevated white count. Pulmonary has been consulted for further management patient with a recent right lower extremity infected hematoma s/p drainage with a wound with developed deep wound with slough tissue and no significant surrounding redness -patient to continue-local wound care to the right lower extremity wound with the Aquacel silver dressing change daily followed by Gonzalez wrap to keep the swelling down patient local culture growing gram-negative with ID sensitivity pending continue with the cefepime and doxycycline and monitor clinical course closely 05/10/2024 -patient is being seen and evaluated for a follow-up. He is alternating within the BiPAP and oxygen at 3 L/min nasal cannula. Remains bronchospastic and wheezy. He still producing excellent urine output. Lab review shows BUN 66 with a creatinine of 1.2 and continues to have swelling in lower extremities. Sodium levels at 139. White cell count is at 9.2 with a hemoglobin of 15.1. Antibiotic coverage with doxycycline and ID is on the case. The cultures from the wound showed multidrug-resistant Acinetobacter. Blood glucose remains elevated above 250; we will add insulin lispro 5 units before each meal; continue to monitor Accu-Cheks q. ACH S with insulin sliding scale Objective - Vital Signs Vital signs: Vital Signs Temp 97.7 F 05/10/24 08:15 Pulse 89 05/10/24 08:15 Resp 17 05/10/24 08:15 BP 145/87 05/10/24 08:15 Pulse Ox 93 L 05/10/24 08:15 FiO2 50 05/10/24 00:45 Intake & Output 05/09/24 05/10/24 05/10/24 18:59 06:59 18:59 Intake Total 1650 10 Output Total 3900 1200 700 Balance -2250 -1200 -690 Weight 164 kg Intake: IV 30 10 Invasive Line 2 10 Invasive Line 3 10 Invasive Line 4 10 10 Oral 1620 Output: Urine 3900 1200 700 Other: Voiding Method Urinal Urinal - Exam Patient is lying lying in the bed. Awake alert and oriented. Currently on BiPAP. Mild distress due to shortness of breath. HEENT: Normocephalic. Neck is supple. Pupils reactive. Nostrils clear. Oral cavity is moist. Neck reveals no JVD, carotid bruits, or thyromegaly. CHEST EXAMINATION: Trachea is central. Symmetrical expansion. Bibasilar diminished sounds. Expiratory wheezing. Scattered rhonchi. Using accessory muscles. CARDIAC: Normal S1, S2 with no gallops. No murmurs ABDOMEN: Soft. Bowel sounds normal. No organomegaly. No abdominal bruits. Extremities: Bilateral lower extremity 3+ edema with right lower extremity wound on the lateral side of the colon.. No clubbing or cyanosis Neurologically awake, alert, oriented x3. Able to move all extremities. No gross focal deficits noted Skin: No rash or skin lesions. Psychiatric: Coperative. Nonsuicidal Musculoskeletal: No joint swelling or deformity. - Labs CBC & Chem 7: 05/10/24 08:09 05/10/24 08:09 Labs: Abnormal Lab Results - Last 24 Hours (Table) 05/09/24 05/09/24 05/09/24 Range/Units 11:18 16:55 20:16 RDW (11.5-15.5) % Neutrophils # (1.3-7.7) k/uL Lymphocytes # (1.0-4.8) k/uL POC Glucose (mg/dL) 193 H 336 H 278 H (70-110) mg/dL 05/10/24 05/10/24 Range/Units 06:18 08:09 RDW 16.8 H (11.5-15.5) % Neutrophils # 8.5 H (1.3-7.7) k/uL Lymphocytes # 0.3 L (1.0-4.8) k/uL POC Glucose (mg/dL) 270 H (70-110) mg/dL Microbiology - Last 24 Hours (Table) 05/07/24 12:39 Gram Stain - Final Leg - Right Wound Culture - Final Acinetobacter rose/haemol 05/07/24 12:19 Blood Culture - Preliminary Blood Assessment and Plan Assessment: Acute on chronic hypoxic and hypercapnic respiratory failure requiring BiPAP. Acute COPD exacerbation Acute on chronic CHF with preserved EF Paroxysmal atrial fibrillation on anticoagulation with Eliquis CKD stage III Recent admission with right lower extremity cellulitis s/p debridement and wound cultures growing MRSA and Acinetobacter species. Patient was discharged on Keflex and doxycycline. bilateral lower extremity venous stasis Obstructive sleep apnea Morbid history BMI 47.5 Hypertension Diabetes type 2 insulin-dependent Hyperemia Prior history of smoking Depression GI and DVT prophylaxis. Patient is on full anticoagulation. Plan: Patient is currently on BiPAP. Continue with IV Solu-Medrol and also started on Lasix 40 mg every 12 hourly. Follow-up proBNP level. Continue with DuoNebs and Symbicort. Follow-up repeat chest x-ray tomorrow. Continue with home medications and restart antibiotics. Insulin sliding scale and insulin regimen. Continue with pain management with [place] 7.5. Wound care will be consulted. ID and pulmonary was consulted. Prognosis guarded at this time. Continue to follow closely.
[2024-05-11 06:12] LABS: Glucose,Whole Blood 224 mg/dL (70-110)
[2024-05-11] MEDS: INSULIN DETEMIR (LEVEMIR) 100 UNIT/ML SYR SQ SCH (09:38)
[2024-05-11 11:33] LABS: Glucose,Whole Blood 249 mg/dL (70-110)
--- NOTE | 2024-05-11 12:11 | P.PN ---
Subjective Progress Note Date: 05/11/24 Principal diagnosis: Reason for follow-up is right lower extremity wound and cellulitis Patient is a 59-year-old male with a past medical history significant for hypertension hyperlipidemia COPD heart failure with asthma atrial fibrillation recently admitted to the hospital with the patient did have right lower extremity infected hematoma presenting back to the hospital for worsening shortness of breath. On today's evaluation that is 05/11/2024,the patient denies any fever or any chills, patient is currently on 3 L nasal cannula oxygen complaining of shortness of breath denies any chest pain no worsening cough no abdominal pain or any worsening pain to the right lower extremity wound though still asking for more pain medication. Patient white count was normal at 9.2 yesterday no CBC was done today Objective - Vital Signs Vital signs: Vital Signs Temp 98.3 F 05/11/24 08:00 Pulse 86 05/11/24 11:55 Resp 18 05/11/24 08:00 BP 134/58 05/11/24 08:00 Pulse Ox 98 05/11/24 08:14 FiO2 50 05/10/24 00:45 Intake & Output 05/10/24 05/11/24 05/11/24 18:59 06:59 18:59 Intake Total 140 10 118 Output Total 2600 1750 Balance -2460 -1740 118 Weight 164.2 kg Intake: IV 20 10 Invasive Line 4 20 10 Oral 120 118 Output: Urine 2600 1750 Other: Voiding Method Urinal Urinal # Bowel Movements 1 - Exam GENERAL DESCRIPTION: Middle-age male lying in bed in no distress RESPIRATORY SYSTEM: Unlabored breathing , decreased breath sounds at bases HEART: S1 S2 regular rate and rhythm , ABDOMEN: Soft , no tenderness EXTREMITIES: Right leg wound currently dressed no drainage - Labs CBC & Chem 7: 05/10/24 08:09 05/10/24 08:09 Labs: Abnormal Lab Results - Last 24 Hours (Table) 05/10/24 05/10/24 05/11/24 Range/Units 16:14 19:50 06:07 POC Glucose (mg/dL) 292 H 283 H 224 H (70-110) mg/dL 05/11/24 Range/Units 11:31 POC Glucose (mg/dL) 249 H (70-110) mg/dL Microbiology - Last 24 Hours (Table) 05/07/24 12:19 Blood Culture - Preliminary Blood 05/07/24 12:39 Gram Stain - Final Leg - Right Wound Culture - Final Acinetobacter rose/haemol Assessment and Plan (1) Wound of right lower extremity Current Visit: Yes Status: Acute Code(s): S81.801A - UNSPECIFIED OPEN WOUND, RIGHT LOWER LEG, INITIAL ENCOUNTER SNOMED Code(s): 28407748269546695 (2) Cellulitis of right lower extremity Current Visit: No Status: Acute Code(s): L03.115 - CELLULITIS OF RIGHT LOWER LIMB SNOMED Code(s): 10103236137456429 Plan: 1patient presented to hospital with increasing shortness of breath possible related underlying cardiopulmonary condition clinically not behaving as pneumonia with no fever or elevated white count. Pulmonary has been consulted for further management 2patient with a recent right lower extremity infected hematoma s/p drainage with a wound with developed deep wound with slough tissue and no significant surrounding redness 3-patient to continue-local wound care to the right lower extremity wound with the dry Aquacel silver dressing no need for Silvadene which has been discontinued 4patient local culture growing drug-resistant Acinetobacter possible colonizer as the patient not running any fever white count is normal and there was no e vidence of any redness or warmth 5we will continue doxycycline and monitor clinical course closely Dictation was produced using [employer] dictation software. please excuse any grammatical, word or spelling errors. Time with Patient: Less than 30
--- NOTE | 2024-05-11 14:06 | P.PN ---
Subjective Progress Note Date: 05/11/24 Principal diagnosis: Acute on chronic hypoxic and hypercapnic respiratory failure, multifactorial This is a 59-year-old male patient who was hospitalized with worsening shortness of breath. The patient was discharged to [facility] on 05/05/2024 after having a prolonged hospitalization during which the patient was treated for right lower extremity wound/abscess with secondary cellulitis that failed outpatient treatment. The patient required debridement and the cultures were positive for MRSA and the patient was sent to [facility] with a course of oral antibiotics including Keflex and doxycycline. Nevertheless, he ended up coming back with worsening shortness of breath. Chest x-ray shows some small bilateral pleural effusion. The patient's chest x-ray was most consistent with CHF. In the emergency, the patient was quite hypercapnic and based on that, the patient was placed on a BiPAP pressure of 12 over 5 cm of water. He is awake and alert and is currently on FiO2 of 50%. No signs of any CO2 narcosis. The white cell count is at 5.7 with a hemoglobin 13.9 and a platelet count of 188. BUN 31 and a creatinine of 1.2. And the patient's sodium levels at 143, serum bicarb is at 35. The patient is currently on DuoNeb nebulized treatments [id number]. The pat ient was started on IV Solu-Medrol suspecting also component of COPD exacerbation. Cardiac enzymes has not been checked. proBNP has not been checked. Lactic acid level currently is at 0.9. Denies having any chest pain. No significant sputum production. Hemodynamically stable. This patient's comorbidities are multiple. The patient has CHF with preserved LV function. Most recent left ventricular ejection fraction has been within normal limits. The patient also has also diabetes mellitus type 2, chronic stage IIIa kidney disease, hypertension, paroxysmal atrial fibrillation and the patient has undergone recent cardioversion on 04/08/2024. He is morbidly obese with a BMI of 47 and is known to have obstructive sleep apnea, noncompliant to CPAP therapy. He has been hospitalized also in the past with signs of fluid overload. He was 22,024, the patient is being seen for a follow-up. on the patient just got transferred to the medical floor. This morning, the patient is currently on 3 days of oxygen by nasal cannula the patient was taken off the BiPAP. Started on diuretics yesterday and the fluid balance has been negative and is producing adequate amount of urine output. BUN is 47 with a creatinine of 0.9. Potassium is at 5.4 with a sodium level of 138. WBC count is 6.7 with a hemoglobin 14.6. Seen by infectious disease. Started on cefepime IV and doxycycline. Repeat wound culture showing gram-negative bacillus. On 05/09/2024, the patient sitting up in a chair and the patient is calm and comfortable. Repeat blood gas was done today and showed a pH of 7.37 with a pCO2 of 69 and pO2 of 68. Follow-up chest x-ray from today shows no acute cardiopulmonary disease and there is cardiomegaly and mild pulm vessel congestion. No labs are available from today. BUN is 47 records of 0.9. Fluid balance is -3.1 L and the patient is headed towards a negative fluid balance. Remains on bronchodilators. Remains on IV Lasix 40 mg every 12 hours. Remains on IV cefepime. He is also on doxycycline. He is also on IV Solu-Medrol 60 mg IV push every 6 hours. Remains on anticoagulation with Eliquis 5 mg p.o. twice a day. Levemir insulin 15 units twice daily plus a sliding scale coverage. 05/10/2024, patient is being seen for a follow-up. He is alternating within the BiPAP and oxygen at 3 L/min nasal cannula. Remains bronchospastic and wheezy. He still producing excellent urine output. BUN 66 with a creatinine of 1.2 and continues to have swelling in lower extremities. Sodium levels at 139. White cell count is at 9.2 with a hemoglobin of 15.1. Antibiotic coverage with doxycycline and ID is on the case. The cultures from the wound showed multidrug-resistant Acinetobacter. Patient was evaluated today on 05/11/2024, presently on BiPAP, intermittently on 3 L nasal cannula, continues to have cough wheezing and shortness of breath, on physical examination he sounded a bit bronchospastic, patient remains on antibiotics/doxycycline as per ID patient had history of multidrug-resistant Acinetobacter. Pulmonary hernandez patient is on proper bronchodilators is also on proper diuretics, and on BiPAP. Being followed by infectious disease for his chronic right lower extremity cellulitis.WBC count is 9.2 electrolytes are normal BUN is 66 creatinine 1.28 BNP level is 3060 Objective - Vital Signs Vital signs: Vital Signs Temp 98.3 F 05/11/24 08:00 Pulse 86 05/11/24 11:55 Resp 18 05/11/24 08:00 BP 134/58 05/11/24 08:00 Pulse Ox 98 05/11/24 08:14 FiO2 50 05/10/24 00:45 Intake & Output 05/10/24 05/11/24 05/11/24 18:59 06:59 18:59 Intake Total 140 10 236 Output Total 2600 1750 Balance -2460 -1740 236 Weight 164.2 kg Intake: IV 20 10 Invasive Line 4 20 10 Oral 120 236 Output: Urine 2600 1750 Other: Voiding Method Urinal Urinal # Bowel Movements 1 - Exam Physical exam: 62-year-old white male morbidly obese on BiPAP 06/04/50% HEENT PERRLA, EOMI, nonicteric moist mucous membranes Neck supple. No neck masses no JVD no stridor Cardiovascular: Irregular rhythm and rate. S1-S2 normal. No S3 or S4. No murmur Lungs scattered rhonchi and wheezing noted bilaterally Abdomen obese, soft bowel sounds are heard. No masses or tenderness. Extremities reveal 3+ bilateral lower extremity pitting edema. Blistering cellulitis to right lower extremity wrapped with sterile dressing Skin: As noted above Neurologic: No gross focal deficit alert oriented x 3 Psychiatric: Normal mood affect and no mental status examination - Labs CBC & Chem 7: 05/10/24 08:09 05/10/24 08:09 Labs: Abnormal Lab Results - Last 24 Hours (Table) 05/10/24 05/10/24 05/11/24 Range/Units 16:14 19:50 06:07 POC Glucose (mg/dL) 292 H 283 H 224 H (70-110) mg/dL 05/11/24 Range/Units 11:31 POC Glucose (mg/dL) 249 H (70-110) mg/dL Microbiology - Last 24 Hours (Table) 05/07/24 12:19 Blood Culture - Preliminary Blood Assessment and Plan Assessment: Impression: Acute on chronic hypoxemic, and hypercapnic respiratory failure, secondary to an exacerbation of chronic diastolic congestive heart failure along with a component of COPD exacerbation. Very severe chronic obstructive pulmonary disease, with an FEV1 22% of predicted Obstructive sleep apnea, patient is noncompliant with his noninvasive positive airway pressure machine Morbid obesity, with a BMI of 48.7 kg/m Chronic stage IIIa kidney disease Atrial fibrillation, anticoagulated with Eliquis Chronic lower extremity edema, with multiple venous stasis ulcers, History of hypertension History of hyperlipidemia Former tobacco dependence Severe cellulitis of right lower extremity, s/p debridement, maintained on a combination of doxycycline and Keflex on outpatient basis. Being followed by infectious disease on the case Recommendation: Continue BiPAP Continue bronchodilators/DuoNeb Continue IV Solu-Medrol Continue diuretics Continue antibiotics as per ID on the case/doxycycline Resume home meds Continue anticoagulation therapy Will continue to follow Time with Patient: Less than 30
--- NOTE | 2024-05-11 15:30 | P.PN ---
Subjective Progress Note Date: 05/11/24 59-year-old male with a past medical history of atrial fibrillation on anticoagulation with Eliquis, chronic CHF, COPD, hypertension, hyperlipidemia, obstructive sleep apnea, depression, prior history of smoking and morbid obesity BMI 47.5. Patient was recently discharged to medical [facility] on 04/04/2024 after prolonged hospitalization due to right lower extremity cellulitis/abscess and wound. Patient was discharged with a course of antibiotics of Keflex and doxycycline. Patient presented back to hospital due to worsening shortness of breath. Patient initially presented to [facility]. Chest x-ray showed small bilateral pleural effusions and CHF. Patient was placed on BiPAP. Denied any complaints of fever or chills. Complains of right lower extremity pain. Does have cough without any sputum production. Laboratory showed WBC 4.2 hemoglobin 13.9 and platelets 163 sodium 136 potassium 5.3 chloride 100 bicarb is 34 BUN 37 creatinine 0.88 and blood sugar 159 and calcium 8.1. Creatinine 0.9. Patient was given a dose of IV Solu-Medrol and IV Levaquin in the ER. 05/09/2024 --patient is seen and evaluated in room at bedside; has been afebrile, patient is breathing comfortably and is currently on 3 L nasal oxygen, patient denies having any significant cough no chest pain, patient denies nausea vomiting or diarrhea and no abdominal pain denies any worsening pain to the right leg or any drainage. No CBC was done today culture from the right leg is currently growing gram- negative with ID sensitivity pending patient presented to hospital with increasing shortness of breath possible related underlying cardiopulmonary condition clinically not behaving as pneumonia with no fever or elevated white count. Pulmonary has been consulted for further management patient with a recent right lower extremity infected hematoma s/p drainage with a wound with developed deep wound with slough tissue and no significant surrounding redness -patient to continue-local wound care to the right lower extremity wound with the Aquacel silver dressing change daily followed by Gonzalez wrap to keep the swelling down patient local culture growing gram-negative with ID sensitivity pending continue with the cefepime and doxycycline and monitor clinical course closely 05/10/2024 -patient is being seen and evaluated for a follow-up. He is alternating within the BiPAP and oxygen at 3 L/min nasal cannula. Remains bronchospastic and wheezy. He still producing excellent urine output. Lab review shows BUN 66 with a creatinine of 1.2 and continues to have swelling in lower extremities. Sodium levels at 139. White cell count is at 9.2 with a hemoglobin of 15.1. Antibiotic coverage with doxycycline and ID is on the case. The cultures from the wound showed multidrug-resistant Acinetobacter. Blood glucose remains elevated above 250; we will add insulin lispro 5 units before each meal; continue to monitor Accu-Cheks q. ACH S with insulin sliding scale 05/11/2024 Patient is seen in follow-up today continues on the BiPAP continues to report shortness of breath. Patient is lethargic although arousable with pulmonary fo llowing. Patient is maintained on IV steroids along with [id number] DuoNebs. Infectious disease is following and is continued on oral doxycycline. Continue with fluid restrictions and also diuretic use. Patient is maintained on insulins with Accu-Cheks before meals and at bedtime and will adjust accordingly as blood sugars are chronically uncontrolled and elevated. Patient is also continued on steroids. Encouraged increase activity as tolerated and recommend PT/OT therapy evaluation. Patient with significant comorbidities and unable to care for himself recommend PT/OT therapy evaluation and rehab. Patient has had frequent rehospitalization's most recently and has been hospitalized more than 3 times. Review of systems: Constitutional: No reports of fatigue, fever, or chills Cardiovascular: No reports of chest pain or palpitations Respiratory: reports of continued shortness of breath or cough GI: No reports of nausea, vomiting, or diarrhea : No reports of dysuria or retention Neurovascular: reports of generalized weakness and some continued right foot pain Active Medications Hydrocodone Bitart/Acetaminophen (Hydrocodone/Apap 10-325mg 1 Each Tab) 1 each PO Q6HR PRN PRN Reason: Pain Last Admin: 05/11/24 12:42 Dose: 1 each Albuterol/Ipratropium (Ipratropium-Albuterol 3 Ml Neb) 3 ml INHALATION RT-QID [facility] Last Admin: 05/11/24 11:46 Dose: 3 ml Albuterol/Ipratropium (Ipratropium-Albuterol 3 Ml Neb) 3 ml INHALATION RT-Q2H PRN PRN Reason: Shortness Of Breath Or Wheezing Alprazolam (Alprazolam 0.25 Mg Tab) 0.25 mg PO TID [facility] Last Admin: 05/11/24 09:37 Dose: 0.25 mg Amiodarone HCl (Amiodarone 200 Mg Tab) 400 mg PO BID [facility] Last Admin: 05/11/24 09:37 Dose: 400 mg Apixaban (Apixaban 5 Mg Tab) 5 mg PO BID [facility]; Protocol Last Admin: 05/11/24 09:36 Dose: 5 mg Atorvastatin Calcium (Atorvastatin 10 Mg Tab) 10 mg PO HS [facility] Last Admin: 05/10/24 20:08 Dose: 10 mg Buspirone HCl (Buspirone Hcl 5 Mg Tab) 5 mg PO TID [facility] Last Admin: 05/11/24 09:37 Dose: 5 mg Calcium Carbonate/Glycine (Calcium Carbonate 500 Mg Chewable) 1,000 mg PO QID PRN PRN Reason: Heartburn Dapagliflozin (Dapagliflozin Propanediol 10 Mg Tablet) 10 mg PO DAILY [facility] Last Admin: 05/11/24 09:37 Dose: 10 mg Doxycycline Monohydrate (Doxycycline 100 Mg Cap) 100 mg PO BID [facility]; Protocol Last Admin: 05/11/24 09:37 Dose: 100 mg Finasteride (Finasteride 5 Mg Tab) 5 mg PO DAILY [facility] Last Admin: 05/11/24 09:37 Dose: 5 mg Furosemide (Furosemide 40 Mg Tab) 40 mg PO BID@0900,1600 [facility] Last Admin: 05/11/24 09:36 Dose: 40 mg Hydrocortisone (Hydrocortisone 1% Cream 30 Gm Tube) 1 applic TOPICAL BID PRN; Protocol PRN Reason: Skin Irritation Last Admin: 05/10/24 12:07 Dose: 1 applic Insulin Aspart (Insulin Aspart (Novolog) 100 Unit/Ml Vial) 0 unit SQ ACHS [facility]; Protocol Last Admin: 05/11/24 12:42 Dose: 4 unit Insulin Aspart (Insulin Aspart (Novolog) 100 Unit/Ml Vial) 5 unit SQ AC-TID [facility]; Protocol Stop: 05/17/24 12:29 Last Admin: 05/11/24 12:42 Dose: 5 unit Insulin Detemir (Insulin Detemir (Levemir) 100 Unit/Ml Syr) 15 unit SQ BID@0700,2100 [facility] Last Admin: 05/11/24 09:38 Dose: 15 unit Methylprednisolone Sodium Succinate (Methylprednisolone Sod Succi 125 Mg/2 Ml Vial) 60 mg IV Q6HR [facility] Last Admin: 05/11/24 12:42 Dose: 60 mg Metoprolol Tartrate (Metoprolol Tartrate 50 Mg Tab) 150 mg PO BID [facility] Last Admin: 05/11/24 09:37 Dose: 150 mg Naloxone HCl (Naloxone 0.4 Mg/Ml 1 Ml Vial) 0.2 mg IVP Q2M PRN PRN Reason: Opioid Reversal Pantoprazole Sodium (Pantoprazole 40 Mg Tablet) 40 mg PO AC-BID [facility] Last Admin: 05/11/24 06:20 Dose: 40 mg Pregabalin (Pregabalin 75 Mg Cap) 150 mg PO BID [facility] Last Admin: 05/11/24 09:37 Dose: 150 mg Prochlorperazine Maleate (Prochlorperazine 10 Mg Tab) 10 mg PO Q8H PRN PRN Reason: Nausea And Vomiting Sertraline HCl (Sertraline 50 Mg Tab) 50 mg PO DAILY [facility] Last Admin: 05/11/24 09:36 Dose: 50 mg Spironolactone (Spironolactone 25 Mg Tab) 12.5 mg PO DAILY [facility] Last Admin: 05/11/24 09:37 Dose: 12.5 mg Tamsulosin HCl (Tamsulosin 0.4 Mg Cap.Er.24h) 0.4 mg PO DAILY [facility] Last Admin: 05/11/24 09:37 Dose: 0.4 mg All medications have been reviewed Physical exam: Patient is lying lying in the bed. Awake alert and oriented. Currently on BiPAP. Mild distress due to shortness of breath. Intermittently using his chronic 3 L, well-developed, elderly appearing, morbidly obese HEENT: Normocephalic. Neck is supple. Pupils reactive. Nostrils clear. Oral cavity is moist. Neck reveals no JVD, carotid bruits, or thyromegaly. CHEST EXAMINATION: Trachea is central. Symmetrical expansion. Bibasilar diminished sounds. Expiratory wheezing. Scattered rhonchi. Using accessory muscles. CARDIAC: Normal S1, S2 with no gallops. No murmurs ABDOMEN: Soft. Obese. Bowel sounds normal. No organomegaly. No abdominal bruits. Extremities: Bilateral lower extremity 1+ edema with right lower extremity wound on the lateral side of the colon.. No clubbing or cyanosis Neurologically asleep but arousable, awake, alert, oriented x3. Able to move all extremities. No gross focal deficits noted, diffusely weak Skin: No rash or skin lesions. Psychiatric: Cooperative. Non-suicidal Musculoskeletal: No joint swelling or deformity. Assessment: Acute on chronic hypoxic and hypercapnic respiratory failure requiring BiPAP. Chronically wears 3 L outpatient Acute COPD exacerbation Acute on chronic CHF with preserved EF Paroxysmal atrial fibrillation on anticoagulation with Eliquis CKD stage III Recent admission with right lower extremity cellulitis s/p debridement and wound cultures growing MRSA and Acinetobacter species. Patient was discharged on Keflex and doxycycline. bilateral lower extremity venous stasis Obstructive sleep apnea Morbid history BMI 47.5 Hypertension Diabetes type 2 insulin-dependent Hyperemia Prior history of smoking Depression GI and DVT prophylaxis. Patient is on full anticoagulation. Plan: Patient is currently on BiPAP. Continue with IV Solu-Medrol and also started on Lasix 40 mg every 12 hourly. BNP was 3060. Continue with DuoNebs and Symbicort. Continue with home medications and restart antibiotics. Continue monitoring Accu-Cheks before meals and at bedtime and will continue insulin sliding scale and insulin regimen. Adjust accordingly Continue with pain management with Mico 7.5. Wound care following recommend to continue with current wound care of the right lower extremity. Elevate lower extremities while at rest Recommend PT/OT therapy evaluation for ECF. Will consult case management/social work regarding discharge planning Due to significant complex medical issues, overall prognosis guarded at this time. The impression and plan of care has been dictated by Shayna Garcia, Nurse Practitioner as directed. Dr. Ja MD I have performed a history and examination and MDM of this patient, discussed the same with the dictator, and agree with the dictator's assessment and plan as written ,documented as a scribe. Based on total visit time, I have performed more than 50% of the visit. Objective - Vital Signs Vital signs: Vital Signs Temp 98.3 F 05/11/24 08:00 Pulse 86 05/11/24 11:55 Resp 18 05/11/24 08:00 BP 134/58 05/11/24 08:00 Pulse Ox 98 05/11/24 08:14 FiO2 50 05/10/24 00:45 Intake & Output 05/10/24 05/11/24 05/11/24 18:59 06:59 18:59 Intake Total 140 10 236 Output Total 2600 1750 1200 Balance -2460 -1740 -964 Weight 164.2 kg Intake: IV 20 10 Invasive Line 4 20 10 Oral 120 236 Output: Urine 2600 1750 1200 Other: Voiding Method Urinal Urinal # Bowel Movements 1 - Labs CBC & Chem 7: 05/10/24 08:09 05/10/24 08:09 Labs: Abnormal Lab Results - Last 24 Hours (Table) 05/10/24 05/10/24 05/11/24 Range/Units 16:14 19:50 06:07 POC Glucose (mg/dL) 292 H 283 H 224 H (70-110) mg/dL 05/11/24 Range/Units 11:31 POC Glucose (mg/dL) 249 H (70-110) mg/dL Microbiology - Last 24 Hours (Table) 05/07/24 12:19 Blood Culture - Preliminary Blood
[2024-05-11 16:15] LABS: Glucose,Whole Blood 368 mg/dL (70-110)
[2024-05-11 20:01] LABS: Glucose,Whole Blood 322 mg/dL (70-110)
[2024-05-12] MEDS: IPRATROPIUM-ALBUTEROL 3 ML NEB INHALATION PRN (04:47)
[2024-05-12 05:56] LABS: Glucose,Whole Blood 217 mg/dL (70-110)
[2024-05-12 07:50] LABS: ALT 35 U/L (4-49); AST 31 U/L (17-59); African American GFR (CKD) 84 (>60 ml/min/1.73 sqM); Albumin 3.4 g/dL (3.5-5.0); Alkaline Phosphatase 99 U/L (38-126); Blood Urea Nitrogen 61 mg/dL (9-20); Calcium 8.8 mg/dL (8.4-10.2); Chloride 94 mmol/L (98-107); Glucose 222 mg/dL (74-99); Magnesium 2.2 mg/dL (1.6-2.3); Non-African American GFR(CKD) 73 (>60 ml/min/1.73 sqM); Potassium 4.9 mmol/L (3.5-5.1); Sodium 137 mmol/L (137-145); Total Bilirubin 0.6 mg/dL (0.2-1.3); Total Protein 5.9 g/dL (6.3-8.2)
[2024-05-12 07:57] LABS: Anion Gap 6 mmol/L
[2024-05-12 08:18] LABS: Carbon Dioxide 37 mmol/L (22-30)
[2024-05-12 11:26] LABS: Glucose,Whole Blood 315 mg/dL (70-110)
--- NOTE | 2024-05-12 12:25 | P.PN ---
Subjective Progress Note Date: 05/12/24 Principal diagnosis: Acute on chronic hypoxic and hypercapnic respiratory failure, multifactorial This is a 59-year-old male patient who was hospitalized with worsening shortness of breath. The patient was discharged to [facility] on 05/05/2024 after having a prolonged hospitalization during which the patient was treated for right lower extremity wound/abscess with secondary cellulitis that failed outpatient treatment. The patient required debridement and the cultures were positive for MRSA and the patient was sent to [facility] with a course of oral antibiotics including Keflex and doxycycline. Nevertheless, he ended up coming back with worsening shortness of breath. Chest x-ray shows some small bilateral pleural effusion. The patient's chest x-ray was most consistent with CHF. In the emergency, the patient was quite hypercapnic and based on that, the patient was placed on a BiPAP pressure of 12 over 5 cm of water. He is awake and alert and is currently on FiO2 of 50%. No signs of any CO2 narcosis. The white cell count is at 5.7 with a hemoglobin 13.9 and a platelet count of 188. BUN 31 and a creatinine of 1.2. And the patient's sodium levels at 143, serum bicarb is at 35. The patient is currently on DuoNeb nebulized treatments [id number]. The pat ient was started on IV Solu-Medrol suspecting also component of COPD exacerbation. Cardiac enzymes has not been checked. proBNP has not been checked. Lactic acid level currently is at 0.9. Denies having any chest pain. No significant sputum production. Hemodynamically stable. This patient's comorbidities are multiple. The patient has CHF with preserved LV function. Most recent left ventricular ejection fraction has been within normal limits. The patient also has also diabetes mellitus type 2, chronic stage IIIa kidney disease, hypertension, paroxysmal atrial fibrillation and the patient has undergone recent cardioversion on 04/08/2024. He is morbidly obese with a BMI of 47 and is known to have obstructive sleep apnea, noncompliant to CPAP therapy. He has been hospitalized also in the past with signs of fluid overload. He was 22,024, the patient is being seen for a follow-up. on the patient just got transferred to the medical floor. This morning, the patient is currently on 3 days of oxygen by nasal cannula the patient was taken off the BiPAP. Started on diuretics yesterday and the fluid balance has been negative and is producing adequate amount of urine output. BUN is 47 with a creatinine of 0.9. Potassium is at 5.4 with a sodium level of 138. WBC count is 6.7 with a hemoglobin 14.6. Seen by infectious disease. Started on cefepime IV and doxycycline. Repeat wound culture showing gram-negative bacillus. On 05/09/2024, the patient sitting up in a chair and the patient is calm and comfortable. Repeat blood gas was done today and showed a pH of 7.37 with a pCO2 of 69 and pO2 of 68. Follow-up chest x-ray from today shows no acute cardiopulmonary disease and there is cardiomegaly and mild pulm vessel congestion. No labs are available from today. BUN is 47 records of 0.9. Fluid balance is -3.1 L and the patient is headed towards a negative fluid balance. Remains on bronchodilators. Remains on IV Lasix 40 mg every 12 hours. Remains on IV cefepime. He is also on doxycycline. He is also on IV Solu-Medrol 60 mg IV push every 6 hours. Remains on anticoagulation with Eliquis 5 mg p.o. twice a day. Levemir insulin 15 units twice daily plus a sliding scale coverage. 05/10/2024, patient is being seen for a follow-up. He is alternating within the BiPAP and oxygen at 3 L/min nasal cannula. Remains bronchospastic and wheezy. He still producing excellent urine output. BUN 66 with a creatinine of 1.2 and continues to have swelling in lower extremities. Sodium levels at 139. White cell count is at 9.2 with a hemoglobin of 15.1. Antibiotic coverage with doxycycline and ID is on the case. The cultures from the wound showed multidrug-resistant Acinetobacter. Patient was evaluated today on 05/11/2024, presently on BiPAP, intermittently on 3 L nasal cannula, continues to have cough wheezing and shortness of breath, on physical examination he sounded a bit bronchospastic, patient remains on antibiotics/doxycycline as per ID patient had history of multidrug-resistant Acinetobacter. Pulmonary hernandez patient is on proper bronchodilators is also on proper diuretics, and on BiPAP. Being followed by infectious disease for his chronic right lower extremity cellulitis.WBC count is 9.2 electrolytes are normal BUN is 66 creatinine 1.28 BNP level is 3060 Patient was evaluated today on 05/12/2024, complaining again about his multiple issues including chronic shortness of breath and about his lower extremities and ongoing right lower extremity cellulitis and nonhealing ulcers in the right lower extremity. Pulmonary hernandez patient remains on diuretics remains on oxygen remains on BiPAP remains on bronchodilators and steroids. Nonetheless patient continues to have shortness of breath at rest and on exertion labs today were all reviewed blood sugar was noted to be 315 hence I cut down his methylprednisolone to 40 mg IV push every 8 hours. Objective - Vital Signs Vital signs: Vital Signs Temp 98.6 F 05/12/24 07:41 Pulse 76 05/12/24 11:20 Resp 18 05/12/24 08:00 BP 126/89 05/12/24 07:41 Pulse Ox 92 L 05/12/24 07:41 FiO2 50 05/12/24 11:00 Intake & Output 05/11/24 05/12/24 05/12/24 18:59 06:59 18:59 Intake Total 476 180 Output Total 2575 650 400 Balance -2099 -650 -220 Weight 163.2 kg Intake: Oral 476 180 Output: Urine 2575 650 400 Other: Voiding Method Urinal # Bowel Movements 1 - Exam Physical exam: 62-year-old white male morbidly obese on BiPAP 06/04/50% HEENT PERRLA, EOMI, nonicteric moist mucous membranes Neck supple. No neck masses no JVD no stridor Cardiovascular: Irregular rhythm and rate. S1-S2 normal. No S3 or S4. No murm ur Lungs diminished breath sound bilaterally no crackles rhonchi or wheezes Abdomen obese, soft bowel sounds are heard. No masses or tenderness. Extremities reveal 3+ bilateral lower extremity pitting edema. Blistering cellulitis to right lower extremity wrapped with sterile dressing Skin: As noted above Neurologic: No gross focal deficit alert oriented x 3 Psychiatric: Normal mood affect and no mental status examination - Labs CBC & Chem 7: 05/10/24 08:09 05/12/24 06:40 Labs: Abnormal Lab Results - Last 24 Hours (Table) 05/11/24 05/11/24 05/12/24 Range/Units 16:13 19:58 05:55 Chloride (98-107) mmol/L Carbon Dioxide (22-30) mmol/L BUN (9-20) mg/dL Glucose (74-99) mg/dL POC Glucose (mg/dL) 368 H 322 H 217 H (70-110) mg/dL Total Protein (6.3-8.2) g/dL Albumin (3.5-5.0) g/dL 05/12/24 05/12/24 Range/Units 06:40 11:24 Chloride 94 L (98-107) mmol/L Carbon Dioxide 37 H (22-30) mmol/L BUN 61 H (9-20) mg/dL Glucose 222 H (74-99) mg/dL POC Glucose (mg/dL) 315 H (70-110) mg/dL Total Protein 5.9 L (6.3-8.2) g/dL Albumin 3.4 L (3.5-5.0) g/dL Assessment and Plan Assessment: Impression: Acute on chronic hypoxemic, and hypercapnic respiratory failure, secondary to an exacerbation of chronic diastolic congestive heart failure along with a component of COPD exacerbation. Very severe chronic obstructive pulmonary disease, with an FEV1 22% of predicted Obstructive sleep apnea, patient is noncompliant with his noninvasive positive airway pressure machine Morbid obesity, with a BMI of 48.7 kg/m Chronic stage IIIa kidney disease Atrial fibrillation, anticoagulated with Eliquis Chronic lower extremity edema, with multiple venous stasis ulcers, History of hypertension History of hyperlipidemia Former tobacco dependence Severe cellulitis of right lower extremity, s/p debridement, maintained on a combination of doxycycline and Keflex on outpatient basis. Being followed by infectious disease on the case Recommendation: Continue BiPAP, alternate with nasal cannula Continue bronchodilators/DuoNeb Continue IV Solu-Medrol, cut down dose to 80 mg IV push every 8 hours Continue diuretics Continue antibiotics as per ID on the case/doxycycline Resume home meds Continue anticoagulation therapy Overall prognosis remains poor and guarded considering his multiple medical issues and the patient never stops complaining about all his issues as noted above Will continue to follow Time with Patient: Less than 30
--- NOTE | 2024-05-12 12:51 | P.PN ---
Subjective Progress Note Date: 05/12/24 Principal diagnosis: Reason for follow-up is right lower extremity wound and cellulitis Patient is a 59-year-old male with a past medical history significant for hypertension hyperlipidemia COPD heart failure with asthma atrial fibrillation recently admitted to the hospital with the patient did have right lower extremity infected hematoma presenting back to the hospital for worsening shortness of breath. On today's evaluation that is 05/12/2024,the patient remains to be afebrile, patient is on 3 L nasal cannula supplemental oxygen and still complaining of some shortness of breath no chest pain or any worsening cough.Patient denies having any nausea or vomiting, no abdominal pain and no diarrhea, denies any worsening pain to the right leg. Patient white count is 1.09 blood culture has been negative so far Objective - Vital Signs Vital signs: Vital Signs Temp 98.6 F 05/12/24 07:41 Pulse 76 05/12/24 11:20 Resp 18 05/12/24 08:00 BP 126/89 05/12/24 07:41 Pulse Ox 92 L 05/12/24 07:41 FiO2 50 05/12/24 11:00 Intake & Output 05/11/24 05/12/24 05/12/24 18:59 06:59 18:59 Intake Total 476 180 Output Total 2575 650 400 Balance -2099 -650 -220 Weight 163.2 kg Intake: Oral 476 180 Output: Urine 2575 650 400 Other: Voiding Method Urinal # Bowel Movements 1 - Exam GENERAL DESCRIPTION: Middle-age male lying in bed in no distress RESPIRATORY SYSTEM: Unlabored breathing , decreased breath sounds at bases HEART: S1 S2 regular rate and rhythm , ABDOMEN: Soft , no tenderness EXTREMITIES: Right leg wound currently dressed no drainage - Labs CBC & Chem 7: 05/10/24 08:09 05/12/24 06:40 Labs: Abnormal Lab Results - Last 24 Hours (Table) 05/11/24 05/11/24 05/12/24 Range/Units 16:13 19:58 05:55 Chloride (98-107) mmol/L Carbon Dioxide (22-30) mmol/L BUN (9-20) mg/dL Glucose (74-99) mg/dL POC Glucose (mg/dL) 368 H 322 H 217 H (70-110) mg/dL Total Protein (6.3-8.2) g/dL Albumin (3.5-5.0) g/dL 05/12/24 05/12/24 Range/Units 06:40 11:24 Chloride 94 L (98-107) mmol/L Carbon Dioxide 37 H (22-30) mmol/L BUN 61 H (9-20) mg/dL Glucose 222 H (74-99) mg/dL POC Glucose (mg/dL) 315 H (70-110) mg/dL Total Protein 5.9 L (6.3-8.2) g/dL Albumin 3.4 L (3.5-5.0) g/dL Assessment and Plan (1) Wound of right lower extremity Current Visit: Yes Status: Acute Code(s): S81.801A - UNSPECIFIED OPEN WOUND, RIGHT LOWER LEG, INITIAL ENCOUNTER SNOMED Code(s): 39007765613754154 (2) Cellulitis of right lower extremity Current Visit: No Status: Acute Code(s): L03.115 - CELLULITIS OF RIGHT LOWER LIMB SNOMED Code(s): 47005215650653070 Plan: 1patient presented to hospital with increasing shortness of breath possible related underlying cardiopulmonary condition clinically not behaving as pneumonia with no fever or elevated white count. Pulmonary has been consulted for further management 2patient with a recent right lower extremity infected hematoma s/p drainage with a wound with developed deep wound with slough tissue and no significant surrounding redness 3-patient to continue-local wound care to the right lower extremity wound with the dry Aquacel silver dressing. 4patient local culture growing drug-resistant Acinetobacter possible colonizer as the patient not running any fever white count is normal and there was no evidence of any redness or warmth 5right is to continue with doxycycline and monitor clinical course closely Dictation was produced using [employer] software. please excuse any grammatical, word or spelling errors. Time with Patient: Less than 30
[2024-05-12 16:36] LABS: Glucose,Whole Blood 196 mg/dL (70-110)
[2024-05-12] MEDS: methylPREDNISolone SOD SUCCI 40 MG/ML 1 ML VIAL IV SCH (17:17)
[2024-05-12] MEDS: HYDROmorphone 0.5 MG/0.5 ML SYRINGE IVP PRN (17:40)
[2024-05-12 20:22] LABS: Glucose,Whole Blood 207 mg/dL (70-110)
[2024-05-13] MEDS: DEXAMETHASONE SOD PHOSPHATE 10 MG/ML 1 ML VIAL IVP SCH (04:42)
[2024-05-13] MEDS: FUROSEMIDE 10 MG/ML 4 ML VIAL IV STA ×2 (04:42→17:37)
[2024-05-13 05:36] LABS: ABG Base Excess 12.4 mmol/L; ABG Oxygen Saturation 99.3 % (94-97); ABG PH 7.32 (7.35-7.45); ABG PO2 140 mmHg (83-108); ABG TCO2 46 mmol/L (19-24); Allen Test Performed? Yes
[2024-05-13 05:42] LABS: ABG HCO3 43 mmol/L (21-25); ABG PCO2 85 mmHg (35-45)
[2024-05-13 06:12] LABS: Glucose,Whole Blood 269 mg/dL (70-110)
--- NOTE | 2024-05-13 06:15 | XR ---
EXAM: XR Chest, 1 View CLINICAL HISTORY: SOB TECHNIQUE: Frontal view of the chest. COMPARISON: 05/09/2024 FINDINGS: Lungs: Small amount of bibasilar airspace opacities. Lungs are slightly underinflated. Pleural space: Unchanged. Mediastinum: Unchanged. Bones/joints: No acute findings. IMPRESSION: Lung findings can be due to underinflation versus mild pulmonary edema.
--- NOTE | 2024-05-13 08:42 | P.PN ---
Subjective Progress Note Date: 05/12/24 59-year-old male with a past medical history of atrial fibrillation on anticoagulation with Eliquis, chronic CHF, COPD, hypertension, hyperlipidemia, obstructive sleep apnea, depression, prior history of smoking and morbid obesity BMI 47.5. Patient was recently discharged to medical [place] on 04/04/2024 after prolonged hospitalization due to right lower extremity cellulitis/abscess and wound. Patient was discharged with a course of antibiotics of Keflex and doxycycline. Patient presented back to hospital due to worsening shortness of breath. Patient initially presented to [facility]. Chest x-ray showed small bilateral pleural effusions and CHF. Patient was placed on BiPAP. Denied any complaints of fever or chills. Complains of right lower extremity pain. Does have cough without any sputum production. Laboratory showed WBC 4.2 hemoglobin 13.9 and platelets 163 sodium 136 potassium 5.3 chloride 100 bicarb is 34 BUN 37 creatinine 0.88 and blood sugar 159 and calcium 8.1. Creatinine 0.9. Patient was given a dose of IV Solu-Medrol and IV Levaquin in the ER. 05/09/2024 --patient is seen and evaluated in room at bedside; has been afebrile, patient is breathing comfortably and is currently on 3 L nasal oxygen, patient denies having any significant cough no chest pain, patient denies nausea vomiting or diarrhea and no abdominal pain denies any worsening pain to the right leg or any drainage. No CBC was done today culture from the right leg is currently growing gram- negative with ID sensitivity pending patient presented to hospital with increasing shortness of breath possible related underlying cardiopulmonary condition clinically not behaving as pneumonia with no fever or elevated white count. Pulmonary has been consulted for further management patient with a recent right lower extremity infected hematoma s/p drainage with a wound with developed deep wound with slough tissue and no significant surrounding redness -patient to continue-local wound care to the right lower extremity wound with the Aquacel silver dressing change daily followed by Gonzalez wrap to keep the swelling down patient local culture growing gram-negative with ID sensitivity pending continue with the cefepime and doxycycline and monitor clinical course closely 05/10/2024 -patient is being seen and evaluated for a follow-up. He is alternating within the BiPAP and oxygen at 3 L/min nasal cannula. Remains bronchospastic and wheezy. He still producing excellent urine output. Lab review shows BUN 66 with a creatinine of 1.2 and continues to have swelling in lower extremities. Sodium levels at 139. White cell count is at 9.2 with a hemoglobin of 15.1. Antibiotic coverage with doxycycline and ID is on the case. The cultures from the wound showed multidrug-resistant Acinetobacter. Blood glucose remains elevated above 250; we will add insulin lispro 5 units before each meal; continue to monitor Accu-Cheks q. ACH S with insulin sliding scale 05/11/2024 Patient is seen in follow-up today continues on the BiPAP continues to report shortness of breath. Patient is lethargic although arousable with pulmonary fo llowing. Patient is maintained on IV steroids along with [id number] DuoNebs. Infectious disease is following and is continued on oral doxycycline. Continue with fluid restrictions and also diuretic use. Patient is maintained on insulins with Accu-Cheks before meals and at bedtime and will adjust accordingly as blood sugars are chronically uncontrolled and elevated. Patient is also continued on steroids. Encouraged increase activity as tolerated and recommend PT/OT therapy evaluation. Patient with significant comorbidities and unable to care for himself recommend PT/OT therapy evaluation and rehab. Patient has had frequent rehospitalization's most recently and has been hospitalized more than 3 times. 05/12/2024 Patient is seen in follow-up with no acute overnight issues noted. Patient continues to report shortness of breath maintained on chronic nasal cannula 3 to 4 L daily as well as BiPAP as needed and at night. Working on possible ECF for continued strength and mobility. Patient feels he cannot take care of himself at home and needs further medical care. Case management following and submitting for insurance authorization. Recommend PT/OT therapy evaluation for updated notes. Review of systems: Constitutional: No reports of fatigue, fever, or chills Cardiovascular: No reports of chest pain or palpitations Respiratory: reports of continued shortness of breath or cough GI: No reports of nausea, vomiting, or diarrhea : No reports of dysuria or retention Neurovascular: reports of generalized weakness and some continued right foot pain All medications have been reviewed Physical exam: Patient is lying lying in the bed. Awake alert and oriented. Currently on BiPAP. Mild distress due to shortness of breath. Intermittently using his chronic 3 L, well-developed, elderly appearing, morbidly obese HEENT: Normocephalic. Neck is supple. Pupils reactive. Nostrils clear. Oral cavity is moist. Neck reveals no JVD, carotid bruits, or thyromegaly. CHEST EXAMINATION: Trachea is central. Symmetrical expansion. Bibasilar diminished sounds. Expiratory wheezing. Scattered rhonchi. Using accessory muscles. CARDIAC: Normal S1, S2 with no gallops. No murmurs ABDOMEN: Soft. Obese. Bowel sounds normal. No organomegaly. No abdominal bruits. Extremities: Bilateral lower extremity 1+ edema with right lower extremity wound on the lateral side of the colon.. No clubbing or cyanosis Neurologically asleep but arousable, awake, alert, oriented x3. Able to move all extremities. No gross focal deficits noted, diffusely weak Skin: No rash or skin lesions. Psychiatric: Cooperative. Non-suicidal Musculoskeletal: No joint swelling or deformity. Assessment: Acute on chronic hypoxic and hypercapnic respiratory failure requiring BiPAP. Chronically wears 3 L outpatient Acute COPD exacerbation Acute on chronic CHF with preserved EF Paroxysmal atrial fibrillation on anticoagulation with Eliquis CKD stage III Recent admission with right lower extremity cellulitis s/p debridement and wound cultures growing MRSA and Acinetobacter species. Patient was discharged on Keflex and doxycycline. bilateral lower extremity venous stasis Obstructive sleep apnea Morbid history BMI 47.5 Hypertension Diabetes type 2 insulin-dependent Hyperemia Prior history of smoking Depression GI and DVT prophylaxis. Patient is on full anticoagulation. Plan: Patient is currently on BiPAP. Continue with IV Solu-Medrol and also started on Lasix 40 mg every 12 hourly. BNP was 3060. Continue with DuoNebs and Symbicort. Continue with home medications and restart antibiotics. Continue monitoring Accu-Cheks before meals and at bedtime and will continue i nsulin sliding scale and insulin regimen. Adjust accordingly Continue with pain management with [place] 7.5. Dilaudid added as needed as patient continues to report 10/10 pain of the foot Wound care following recommend to continue with current wound care of the right lower extremity. Elevate lower extremities while at rest Recommend PT/OT therapy evaluation for ECF. case management/social work f ollowing and awaiting insurance authorization. Regarding discharge planning Due to significant complex medical issues, overall prognosis guarded at this time. The impression and plan of care has been dictated by Shayna Garcia, Nurse Practitioner as directed. Dr. Ja MD I have performed a history and examination and MDM of this patient, discussed the same with the dictator, and agree with the dictator's assessment and plan as written ,documented as a scribe. Based on total visit time, I have performed more than 50% of the visit. Objective - Vital Signs Vital signs: Vital Signs Temp 98.6 F 05/12/24 07:41 Pulse 76 05/12/24 11:20 Resp 18 05/12/24 08:00 BP 126/89 05/12/24 07:41 Pulse Ox 92 L 05/12/24 07:41 FiO2 50 05/12/24 11:00 Intake & Output 05/11/24 05/12/24 05/12/24 18:59 06:59 18:59 Intake Total 476 420 Output Total 2575 650 1300 Balance -2099 -650 -880 Weight 163.2 kg Intake: Oral 476 420 Output: Urine 2575 650 1300 Other: Voiding Method Urinal # Bowel Movements 1 - Labs CBC & Chem 7: 05/10/24 08:09 05/12/24 06:40 Labs: Abnormal Lab Results - Last 24 Hours (Table) 05/11/24 05/11/24 05/12/24 Range/Units 16:13 19:58 05:55 Chloride (98-107) mmol/L Carbon Dioxide (22-30) mmol/L BUN (9-20) mg/dL Glucose (74-99) mg/dL POC Glucose (mg/dL) 368 H 322 H 217 H (70-110) mg/dL Total Protein (6.3-8.2) g/dL Albumin (3.5-5.0) g/dL 05/12/24 05/12/24 Range/Units 06:40 11:24 Chloride 94 L (98-107) mmol/L Carbon Dioxide 37 H (22-30) mmol/L BUN 61 H (9-20) mg/dL Glucose 222 H (74-99) mg/dL POC Glucose (mg/dL) 315 H (70-110) mg/dL Total Protein 5.9 L (6.3-8.2) g/dL Albumin 3.4 L (3.5-5.0) g/dL
[2024-05-13] MEDS ORDERED: FUROSEMIDE 10 MG/ML 4 ML VIAL IV SCH (09:00)
[2024-05-13 11:32] LABS: Glucose,Whole Blood 283 mg/dL (70-110)
--- NOTE | 2024-05-13 12:53 | P.PN ---
Subjective Progress Note Date: 05/13/24 Principal diagnosis: Acute on chronic hypoxic and hypercapnic respiratory failure, multifactorial This is a 59-year-old male patient who was hospitalized with worsening shortness of breath. The patient was discharged to [facility] on 05/05/2024 after having a prolonged hospitalization during which the patient was treated for right lower extremity wound/abscess with secondary cellulitis that failed outpatient treatment. The patient required debridement and the cultures were positive for MRSA and the patient was sent to [facility] with a course of oral antibiotics including Keflex and doxycycline. Nevertheless, he ended up coming back with worsening shortness of breath. Chest x-ray shows some small bilateral pleural effusion. The patient's chest x-ray was most consistent with CHF. In the emergency, the patient was quite hypercapnic and based on that, the patient was placed on a BiPAP pressure of 12 over 5 cm of water. He is awake and alert and is currently on FiO2 of 50%. No signs of any CO2 narcosis. The white cell count is at 5.7 with a hemoglobin 13.9 and a platelet count of 188. BUN 31 and a creatinine of 1.2. And the patient's sodium levels at 143, serum bicarb is at 35. The patient is currently on DuoNeb nebulized treatments [id number]. The pat ient was started on IV Solu-Medrol suspecting also component of COPD exacerbation. Cardiac enzymes has not been checked. proBNP has not been checked. Lactic acid level currently is at 0.9. Denies having any chest pain. No significant sputum production. Hemodynamically stable. This patient's comorbidities are multiple. The patient has CHF with preserved LV function. Most recent left ventricular ejection fraction has been within normal limits. The patient also has also diabetes mellitus type 2, chronic stage IIIa kidney disease, hypertension, paroxysmal atrial fibrillation and the patient has undergone recent cardioversion on 04/08/2024. He is morbidly obese with a BMI of 47 and is known to have obstructive sleep apnea, noncompliant to CPAP therapy. He has been hospitalized also in the past with signs of fluid overload. He was 22,024, the patient is being seen for a follow-up. on the patient just got transferred to the medical floor. This morning, the patient is currently on 3 days of oxygen by nasal cannula the patient was taken off the BiPAP. Started on diuretics yesterday and the fluid balance has been negative and is producing adequate amount of urine output. BUN is 47 with a creatinine of 0.9. Potassium is at 5.4 with a sodium level of 138. WBC count is 6.7 with a hemoglobin 14.6. Seen by infectious disease. Started on cefepime IV and doxycycline. Repeat wound culture showing gram-negative bacillus. On 05/09/2024, the patient sitting up in a chair and the patient is calm and comfortable. Repeat blood gas was done today and showed a pH of 7.37 with a pCO2 of 69 and pO2 of 68. Follow-up chest x-ray from today shows no acute cardiopulmonary disease and there is cardiomegaly and mild pulm vessel congestion. No labs are available from today. BUN is 47 records of 0.9. Fluid balance is -3.1 L and the patient is headed towards a negative fluid balance. Remains on bronchodilators. Remains on IV Lasix 40 mg every 12 hours. Remains on IV cefepime. He is also on doxycycline. He is also on IV Solu-Medrol 60 mg IV push every 6 hours. Remains on anticoagulation with Eliquis 5 mg p.o. twice a day. Levemir insulin 15 units twice daily plus a sliding scale coverage. 05/10/2024, patient is being seen for a follow-up. He is alternating within the BiPAP and oxygen at 3 L/min nasal cannula. Remains bronchospastic and wheezy. He still producing excellent urine output. BUN 66 with a creatinine of 1.2 and continues to have swelling in lower extremities. Sodium levels at 139. White cell count is at 9.2 with a hemoglobin of 15.1. Antibiotic coverage with doxycycline and ID is on the case. The cultures from the wound showed multidrug-resistant Acinetobacter. Patient was evaluated today on 05/11/2024, presently on BiPAP, intermittently on 3 L nasal cannula, continues to have cough wheezing and shortness of breath, on physical examination he sounded a bit bronchospastic, patient remains on antibiotics/doxycycline as per ID patient had history of multidrug-resistant Acinetobacter. Pulmonary hernandez patient is on proper bronchodilators is also on proper diuretics, and on BiPAP. Being followed by infectious disease for his chronic right lower extremity cellulitis.WBC count is 9.2 electrolytes are normal BUN is 66 creatinine 1.28 BNP level is 3060 Patient was evaluated today on 05/12/2024, complaining again about his multiple issues including chronic shortness of breath and about his lower extremities and ongoing right lower extremity cellulitis and nonhealing ulcers in the right lower extremity. Pulmonary hernandez patient remains on diuretics remains on oxygen remains on BiPAP remains on bronchodilators and steroids. Nonetheless patient continues to have shortness of breath at rest and on exertion labs today were all reviewed blood sugar was noted to be 315 hence I cut down his methylprednisolone to 40 mg IV push every 8 hours. Reevaluate today on 05/13/2024, patient is on BiPAP, quite sleepy, last night had some worsening shortness of breath, I recommended Decadron I also recommended Lasix, chest x-ray was also noted, ABG was noted, actually his workup does not seem to be remarkable and his ABG is expected to be as such. With relatively high pCO2 but he is compensating metabolically well maintaining a pH of 7.32. ABG showed a pO2 of 114 pCO2 85 pH of 7.32 chest x-ray did show minimal pulmonary edema/interstitial pulmonary vascular congestion but he did receive Lasix and he is on diuretics maintenance Objective - Vital Signs Vital signs: Vital Signs Temp 98 F 05/13/24 08:25 Pulse 92 05/13/24 08:26 Resp 18 05/13/24 08:25 BP 150/71 05/13/24 08:25 Pulse Ox 94 L 05/13/24 08:25 FiO2 50 05/13/24 08:25 Intake & Output 05/12/24 05/13/24 05/13/24 18:59 06:59 18:59 Intake Total 600 1040 180 Output Total 1300 1500 1600 Balance -700 460 1420 Weight 163.4 kg Intake: Oral 600 1040 180 Output: Urine 1300 1500 1600 Other: Voiding Method Urinal Urinal - Exam Physical exam: 62-year-old white male morbidly obese on BiPAP 06/04/40 HEENT PERRLA, EOMI, nonicteric moist mucous membranes Neck supple. No neck masses no JVD no stridor Cardiovascular: Irregular rhythm and rate. S1-S2 normal. No S3 or S4. No murmur Lungs diminished breath sound bilaterally no crackles rhonchi or wheezes Abdomen obese, soft bowel sounds are heard. No masses or tenderness. Extremities reveal 3+ bilateral lower extremity pitting edema. Blistering ce llulitis to right lower extremity wrapped with sterile dressing Skin: As noted above Neurologic: No gross focal deficit alert oriented x 3 Psychiatric: Normal mood affect and no mental status examination - Labs CBC & Chem 7: 05/10/24 08:09 05/12/24 06:40 Labs: Abnormal Lab Results - Last 24 Hours (Table) 05/12/24 05/12/24 05/13/24 Range/Units 16:32 20:14 05:35 ABG pH 7.32 L (7.35-7.45) ABG pCO2 85 H* (35-45) mmHg ABG pO2 140 H (83-108) mmHg ABG HCO3 43 H* (21-25) mmol/L ABG Total CO2 46 H (19-24) mmol/L ABG O2 Saturation 99.3 H (94-97) % POC Glucose (mg/dL) 196 H 207 H (70-110) mg/dL 05/13/24 05/13/24 Range/Units 06:10 11:31 ABG pH (7.35-7.45) ABG pCO2 (35-45) mmHg ABG pO2 (83-108) mmHg ABG HCO3 (21-25) mmol/L ABG Total CO2 (19-24) mmol/L ABG O2 Saturation (94-97) % POC Glucose (mg/dL) 269 H 283 H (70-110) mg/dL Microbiology - Last 24 Hours (Table) 05/07/24 12:19 Blood Culture - Final Blood Assessment and Plan Assessment: Impression: Acute on chronic hypoxemic, and hypercapnic respiratory failure, secondary to an exacerbation of chronic diastolic congestive heart failure along with a component of COPD exacerbation. Very severe chronic obstructive pulmonary disease, with an FEV1 22% of predicted Obstructive sleep apnea, patient is noncompliant with his noninvasive positive airway pressure machine Morbid obesity, with a BMI of 48.7 kg/m Chronic stage IIIa kidney disease Atrial fibrillation, anticoagulated with Eliquis Chronic lower extremity edema, with multiple venous stasis ulcers, History of hypertension History of hyperlipidemia Former tobacco dependence Severe cellulitis of right lower extremity, s/p debridement, maintained on a combination of doxycycline and Keflex on outpatient basis. Being followed by infectious disease on the case Recommendation: Continue BiPAP, alternate with nasal cannula Continue bronchodilators/DuoNeb Change Decadron and Solu-Medrol to prednisone orally Continue diuretics Continue antibiotics as per ID on the case Continue anticoagulation therapy Overall prognosis remains poor and guarded Will continue to follow Time with Patient: Less than 30
[2024-05-13 16:39] LABS: Glucose,Whole Blood 152 mg/dL (70-110)
--- NOTE | 2024-05-13 17:34 | XR ---
EXAMINATION TYPE: XR chest 1V portable DATE OF EXAM: 05/13/2024 5:19 PM COMPARISON: Chest radiographs from 05/13/2024 CLINICAL INDICATION: Male, 59 years old with history of Resp distress; [facility] TECHNIQUE: XR chest 1V portable Frontal view of the chest. FINDINGS: Lungs/Pleura: There is no evidence of pleural effusion, focal consolidation, or pneumothorax. Pulmonary vascularity: Pulmonary vascular congestion. Heart/mediastinum: Cardiomediastinal silhouette is enlarged. Musculoskeletal: No acute osseous pathology. IMPRESSION: Cardiomegaly and mild pulmonary vascular congestion. Correlate with BNP for congestive heart failure. [facility], , 05/13/2024 5:32 PM
[2024-05-13] MEDS: DEXAMETHASONE SOD PHOSPHATE 10 MG/ML 1 ML VIAL IVP STA (17:37)
[2024-05-13] MEDS: methylPREDNISolone SOD SUCCI 125 MG/2 ML VIAL IV STA (18:29)
[2024-05-13 19:45] LABS: ABG Base Excess 17.2 mmol/L; ABG Oxygen Saturation 98.3 % (94-97); ABG PH 7.35 (7.35-7.45); ABG PO2 104 mmHg (83-108); ABG TCO2 51 mmol/L (19-24); Allen Test Performed? Yes
[2024-05-13 19:57] LABS: ABG HCO3 49 mmol/L (21-25); ABG PCO2 87 mmHg (35-45)
[2024-05-13 20:08] LABS: Glucose,Whole Blood 123 mg/dL (70-110)
--- NOTE | 2024-05-14 05:47 | P.PN ---
Subjective Progress Note Date: 05/13/24 59-year-old male with a past medical history of atrial fibrillation on anticoagulation with Eliquis, chronic CHF, COPD, hypertension, hyperlipidemia, obstructive sleep apnea, depression, prior history of smoking and morbid obesity BMI 47.5. Patient was recently discharged [facility] on 04/04/[facility]24 after prolonged hospitalization due to right lower extremity cellulitis/abscess and wound. Patient was discharged with a course of antibiotics of Keflex and doxycycline. Patient presented back to hospital due to worsening shortness of breath. Patient initially presented to [facility]. Chest x-ray showed small bilateral pleural effusions and CHF. Patient was placed on BiPAP. Denied any complaints of fever or chills. Complains of right lower extremity pain. Does have cough without any sputum production. Laboratory showed WBC 4.2 hemoglobin 13.9 and platelets 163 sodium 136 potassium 5.3 chloride 100 bicarb is 34 BUN 37 creatinine 0.88 and blood sugar 159 and calcium 8.1. Creatinine 0.9. Patient was given a dose of IV Solu-Medrol and IV Levaquin in the ER. 05/09/2024 --patient is seen and evaluated in room at bedside; has been afebrile, patient is breathing comfortably and is currently on 3 L nasal oxygen, patient denies having any significant cough no chest pain, patient denies nausea vomiting or diarrhea and no abdominal pain denies any worsening pain to the right leg or any drainage. No CBC was done today culture from the right leg is currently growing gram- negative with ID sensitivity pending patient presented to hospital with increasing shortness of breath possible related underlying cardiopulmonary condition clinically not behaving as pneumonia with no fever or elevated white count. Pulmonary has been consulted for further management patient with a recent right lower extremity infected hematoma s/p drainage with a wound with developed deep wound with slough tissue and no significant surrounding redness -patient to continue-local wound care to the right lower extremity wound with the Aquacel silver dressing change daily followed by Gonzalez wrap to keep the swelling down patient local culture growing gram-negative with ID sensitivity pending continue with the cefepime and doxycycline and monitor clinical course closely 05/10/2024 -patient is being seen and evaluated for a follow-up. He is alternating within the BiPAP and oxygen at 3 L/min nasal cannula. Remains bronchospastic and wheezy. He still producing excellent urine output. Lab review shows BUN 66 with a creatinine of 1.2 and continues to have swelling in lower extremities. Sodium levels at 139. White cell count is at 9.2 with a hemoglobin of 15.1. Antibiotic coverage with doxycycline and ID is on the case. The cultures from the wound showed multidrug-resistant Acinetobacter. Blood glucose remains elevated above 250; we will add insulin lispro 5 units before each meal; continue to monitor Accu-Cheks q. ACH S with insulin sliding scale 05/11/2024 Patient is seen in follow-up today continues on the BiPAP continues to report shortness of breath. Patient is lethargic although arousable with pulmonary fo llowing. Patient is maintained on IV steroids along with [id number] DuoNebs. Infectious disease is following and is continued on oral doxycycline. Continue with fluid restrictions and also diuretic use. Patient is maintained on insulins with Accu-Cheks before meals and at bedtime and will adjust accordingly as blood sugars are chronically uncontrolled and elevated. Patient is also continued on steroids. Encouraged increase activity as tolerated and recommend PT/OT therapy evaluation. Patient with significant comorbidities and unable to care for himself recommend PT/OT therapy evaluation and rehab. Patient has had frequent rehospitalization's most recently and has been hospitalized more than 3 times. 05/12/2024 Patient is seen in follow-up with no acute overnight issues noted. Patient continues to report shortness of breath maintained on chronic nasal cannula 3 to 4 L daily as well as BiPAP as needed and at night. Working on possible ECF for continued strength and mobility. Patient feels he cannot take care of himself at home and needs further medical care. Case management following and submitting for insurance authorization. Recommend PT/OT therapy evaluation for updated notes. 05/13/2024 Patient is seen in follow-up today with pulmonary and infectious disease following. Patient continues on DuoNeb treatments along with steroids and being transition to oral prednisone. Patient continues to report significant shortness of breath and difficulty in breathing overnight. Patient has been instructed to use BiPAP as needed as well as 8 PM to 8 AM. Patient is significantly weak and high risk for falls with significant comorbidities. Patient awaiting insurance authorization for ECF. Patient would benefit from ECF on discharge. Case management is following. Review of systems: Constitutional: No reports of fatigue, fever, or chills Cardiovascular: No reports of chest pain or palpitations Respiratory: reports of continued shortness of breath or cough GI: No reports of nausea, vomiting, or diarrhea : No reports of dysuria or retention Neurovascular: reports of generalized weakness and some continued right foot pain All medications have been reviewed Physical exam: Patient is sitting in the bed. Awake alert and oriented. Currently on BiPAP. Mild distress due to shortness of breath. Intermittently using his chronic 3 L, well-developed, elderly appearing, morbidly obese HEENT: Normocephalic. Neck is supple. Pupils reactive. Nostrils clear. Oral cavity is moist. Neck reveals no JVD, carotid bruits, or thyromegaly. CHEST EXAMINATION: Trachea is central. Symmetrical expansion. Bibasilar diminished sounds. Expiratory wheezing. Scattered rhonchi. Using accessory muscles. CARDIAC: Normal S1, S2 with no gallops. No murmurs ABDOMEN: Soft. Obese. Bowel sounds normal. No organomegaly. No abdominal bruits. Extremities: Bilateral lower extremity 1+ edema with right lower extremity wound on the lateral side of the colon.. No clubbing or cyanosis Neurologically asleep but arousable, awake, alert, oriented x3. Able to move all extremities. No gross focal deficits noted, diffusely weak Skin: No rash or skin lesions. Psychiatric: Cooperative. Non-suicidal Musculoskeletal: No joint swelling or deformity. Assessment: Acute on chronic hypoxic and hypercapnic respiratory failure requiring BiPAP. Chronically wears 3 L outpatient Acute COPD exacerbation Acute on chronic CHF with preserved EF Paroxysmal atrial fibrillation on anticoagulation with Eliquis CKD stage III Recent admission with right lower extremity cellulitis s/p debridement and wound cultures growing MRSA and Acinetobacter species. Patient was discharged on Keflex and doxycycline. bilateral lower extremity venous stasis Obstructive sleep apnea Morbid history BMI 47.5 Hypertension Diabetes type 2 insulin-dependent Hyperemia Prior history of smoking Depression GI and DVT prophylaxis. Patient is on full anticoagulation. Plan: Patient is currently on BiPAP. Recommend using BiPAP intermittently as needed as well as 8 PM to 8 AM. Patient was continued on IV Solu-Medrol and being transition to oral prednisone taper as well as started on Lasix 40 mg every 12 hourly. Continue with DuoNebs and Symbicort. Continue with home medications and restart antibiotics. Continue monitoring Accu-Cheks before meals and at bedtime and will continue insulin sliding scale and insulin regimen. Adjust accordingly Continue with pain management with [place] 7.5. Dilaudid added as needed as patient continues to report 10/10 pain of the foot. Encouraged patient to avoid IV narcotics if possible Wound care following recommend to continue with current wound care of the right lower extremity. Elevate lower extremities while at rest. Infectious disease following and patient is continued on antibiotics from previous right lower extremity cellulitis and wounds. Patient will need outpatient follow-up at the wound care center PT/OT therapy evaluated recommending ECF. case management/social work following and awaiting insurance authorization. Authorization remains pending. Patient is extremely weak and has had multiple hospitalizations most recently with prolonged hospitalization and would benefit from continued aggressive PT/OT therapy and ongoing medical care regarding his COPD and CHF as well as wound care. Patient is unable to care for himself at home and has had multiple hospitalizations due to this. Due to significant complex medical issues, overall prognosis guarded at this time. The impression and plan of care has been dictated by Shayna Garcia, Nurse Practitioner as directed. Dr. Ja MD I have performed a history and examination and MDM of this patient, discussed the same with the dictator, and agree with the dictator's assessment and plan as written ,documented as a scribe. Based on total visit time, I have performed more than 50% of the visit. Objective - Vital Signs Vital signs: Vital Signs Temp 97.2 F L 05/13/24 19:47 Pulse 80 05/14/24 03:59 Resp 18 05/14/24 03:59 BP 122/70 05/14/24 03:59 Pulse Ox 92 L 05/14/24 03:59 FiO2 50 05/14/24 00:40 Intake & Output 05/13/24 05/13/24 05/14/24 06:59 18:59 06:59 Intake Total 1040 540 Output Total 1500 3400 2450 Balance -460 -6570 -2450 Weight 163.4 kg Intake: Oral 1040 540 Output: Urine 1500 3400 2450 Other: Voiding Method Urinal Urinal Urinal - Labs CBC & Chem 7: 05/10/24 08:09 05/12/24 06:40 Labs: Abnormal Lab Results - Last 24 Hours (Table) 05/13/24 05/13/24 05/13/24 Range/Units 05:35 06:10 11:31 ABG pH 7.32 L (7.35-7.45) ABG pCO2 85 H* (35-45) mmHg ABG pO2 140 H (83-108) mmHg ABG HCO3 43 H* (21-25) mmol/L ABG Total CO2 46 H (19-24) mmol/L ABG O2 Saturation 99.3 H (94-97) % POC Glucose (mg/dL) 269 H 283 H (70-110) mg/dL 05/13/24 05/13/24 05/13/24 Range/Units 16:35 19:42 20:06 ABG pH (7.35-7.45) ABG pCO2 87 H* (35-45) mmHg ABG pO2 (83-108) mmHg ABG HCO3 49 H* (21-25) mmol/L ABG Total CO2 51 H (19-24) mmol/L ABG O2 Saturation 98.3 H (94-97) % POC Glucose (mg/dL) 152 H 123 H (70-110) mg/dL
[2024-05-14 06:19] LABS: Glucose,Whole Blood 193 mg/dL (70-110)
[2024-05-14] MEDS: predniSONE 20 MG TAB PO SCH (08:21)
[2024-05-14 09:02] VITALS: BMI 49.1
[2024-05-14 11:20] LABS: Glucose,Whole Blood 165 mg/dL (70-110)
--- NOTE | 2024-05-14 13:37 | P.PN ---
Subjective Progress Note Date: 05/14/24 Principal diagnosis: Acute on chronic hypoxic and hypercapnic respiratory failure, multifactorial This is a 59-year-old male patient who was hospitalized with worsening shortness of breath. The patient was discharged to [facility] on 05/05/2024 after having a prolonged hospitalization during which the patient was treated for right lower extremity wound/abscess with secondary cellulitis that failed outpatient treatment. The patient required debridement and the cultures were positive for MRSA and the [facility] a course of oral antibiotics including Keflex and doxycycline. Nevertheless, he ended up coming back with worsening shortness of breath. Chest x-ray shows some small bilateral pleural effusion. The patient's chest x-ray was most consistent with CHF. In the emergency, the patient was quite hypercapnic and based on that, the patient was placed on a BiPAP pressure of 12 over 5 cm of water. He is awake and alert and is currently on FiO2 of 50%. No signs of any CO2 narcosis. The white cell count is at 5.7 with a hemoglobin 13.9 and a platelet count of 188. BUN 31 and a creatinine of 1.2. And the patient's sodium levels at 143, serum bicarb is at 35. The patient is currently on DuoNeb nebulized treatments [id number]. The pat ient was started on IV Solu-Medrol suspecting also component of COPD exacerbation. Cardiac enzymes has not been checked. proBNP has not been checked. Lactic acid level currently is at 0.9. Denies having any chest pain. No significant sputum production. Hemodynamically stable. This patient's comorbidities are multiple. The patient has CHF with preserved LV function. Most recent left ventricular ejection fraction has been within normal limits. The patient also has also diabetes mellitus type 2, chronic stage IIIa kidney disease, hypertension, paroxysmal atrial fibrillation and the patient has undergone recent cardioversion on 04/08/2024. He is morbidly obese with a BMI of 47 and is known to have obstructive sleep apnea, noncompliant to CPAP therapy. He has been hospitalized also in the past with signs of fluid overload. He was 22,024, the patient is being seen for a follow-up. on the patient just got transferred to the medical floor. This morning, the patient is currently on 3 days of oxygen by nasal cannula the patient was taken off the BiPAP. Started on diuretics yesterday and the fluid balance has been negative and is producing adequate amount of urine output. BUN is 47 with a creatinine of 0.9. Potassium is at 5.4 with a sodium level of 138. WBC count is 6.7 with a hemoglobin 14.6. Seen by infectious disease. Started on cefepime IV and doxycycline. Repeat wound culture showing gram-negative bacillus. On 05/09/2024, the patient sitting up in a chair and the patient is calm and comfortable. Repeat blood gas was done today and showed a pH of 7.37 with a pCO2 of 69 and pO2 of 68. Follow-up chest x-ray from today shows no acute cardiopulmonary disease and there is cardiomegaly and mild pulm vessel congestion. No labs are available from today. BUN is 47 records of 0.9. Fluid balance is -3.1 L and the patient is headed towards a negative fluid balance. Remains on bronchodilators. Remains on IV Lasix 40 mg every 12 hours. Remains on IV cefepime. He is also on doxycycline. He is also on IV Solu-Medrol 60 mg IV push every 6 hours. Remains on anticoagulation with Eliquis 5 mg p.o. twice a day. Levemir insulin 15 units twice daily plus a sliding scale coverage. 05/10/2024, patient is being seen for a follow-up. He is alternating within the BiPAP and oxygen at 3 L/min nasal cannula. Remains bronchospastic and wheezy. He still producing excellent urine output. BUN 66 with a creatinine of 1.2 and continues to have swelling in lower extremities. Sodium levels at 139. White cell count is at 9.2 with a hemoglobin of 15.1. Antibiotic coverage with doxycycline and ID is on the case. The cultures from the wound showed multidrug-resistant Acinetobacter. Patient was evaluated today on 05/11/2024, presently on BiPAP, intermittently on 3 L nasal cannula, continues to have cough wheezing and shortness of breath, on physical examination he sounded a bit bronchospastic, patient remains on antibiotics/doxycycline as per ID patient had history of multidrug-resistant Acinetobacter. Pulmonary hernandez patient is on proper bronchodilators is also on proper diuretics, and on BiPAP. Being followed by infectious disease for his chronic right lower extremity cellulitis.WBC count is 9.2 electrolytes are normal BUN is 66 creatinine 1.28 BNP level is 3060 Patient was evaluated today on 05/12/2024, complaining again about his multiple issues including chronic shortness of breath and about his lower extremities and ongoing right lower extremity cellulitis and nonhealing ulcers in the right lower extremity. Pulmonary hernandez patient remains on diuretics remains on oxygen remains on BiPAP remains on bronchodilators and steroids. Nonetheless patient continues to have shortness of breath at rest and on exertion labs today were all reviewed blood sugar was noted to be 315 hence I cut down his methylprednisolone to 40 mg IV push every 8 hours. Reevaluate today on 05/13/2024, patient is on BiPAP, quite sleepy, last night had some worsening shortness of breath, I recommended Decadron I also recommended Lasix, chest x-ray was also noted, ABG was noted, actually his workup does not seem to be remarkable and his ABG is expected to be as such. With relatively high pCO2 but he is compensating metabolically well maintaining a pH of 7.32. ABG showed a pO2 of 114 pCO2 85 pH of 7.32 chest x-ray did show minimal pulmonary edema/interstitial pulmonary vascular congestion but he did receive Lasix and he is on diuretics maintenance Reevaluate today on 05/14/2024, patient is sitting at the edge of the bed, on BiPAP, does not seem to be in distress, however he continues to complain of shortness of breath all the time, continues to complain of right-sided foot pain, yesterday patient was evaluated again by the a team and did not feel that the patient needs to be admitted to the ICU. Patient did receive steroids and diuretics, and he seems to be doing fairly well except for his ongoing complaints of being short of breath and having pain. Repeat ABG yesterday showed a pO2 of 104 pCO2 87 pH of 7.35 and that basically about his baseline. FiO2 could be cut down to 35% patient remains on diuretics for chronic diastolic congestive heart failure and he is maximal on bronchodilators for Objective - Vital Signs Vital signs: Vital Signs Temp 97.5 F L 05/14/24 10:50 Pulse 89 05/14/24 12:00 Resp 15 05/14/24 10:50 BP 113/69 05/14/24 10:50 Pulse Ox 95 05/14/24 10:50 FiO2 40 05/14/24 11:56 Intake & Output 05/13/24 05/14/24 05/14/24 18:59 06:59 18:59 Intake Total 540 Output Total 3400 2450 1120 Balance -2860 -2450 -1120 Weight 164.2 kg 164.2 kg Intake: Oral 540 Output: Urine 3400 2450 1120 Other: Voiding Method Urinal Urinal Urinal - Exam Physical exam: 62-year-old white male morbidly obese on BiPAP 06/04/40 HEENT PERRLA, EOMI, nonicteric moist mucous membranes Neck supple. No neck masses no JVD no stridor Cardiovascular: Irregular rhythm and rate. S1-S2 normal. No S3 or S4. No murmur Lungs diminished breath sound bilaterally no crackles rhonchi or wheezes Abdomen obese, soft bowel sounds are heard. No masses or tenderness. Extremities reveal 3+ bilateral lower extremity pitting edema. Blistering cellulitis to right lower extremity wrapped with sterile dressing Skin: As noted above Neurologic: Alert oriented x 3 no gross focal deficit Psychiatric: Normal mood affect and no mental status examination - Labs CBC & Chem 7: 05/10/24 08:09 05/12/24 06:40 Labs: Abnormal Lab Results - Last 24 Hours (Table) 05/13/24 05/13/24 05/13/24 Range/Units 16:35 19:42 20:06 ABG pCO2 87 H* (35-45) mmHg ABG HCO3 49 H* (21-25) mmol/L ABG Total CO2 51 H (19-24) mmol/L ABG O2 Saturation 98.3 H (94-97) % POC Glucose (mg/dL) 152 H 123 H (70-110) mg/dL 05/14/24 05/14/24 Range/Units 06:17 11:18 ABG pCO2 (35-45) mmHg ABG HCO3 (21-25) mmol/L ABG Total CO2 (19-24) mmol/L ABG O2 Saturation (94-97) % POC Glucose (mg/dL) 193 H 165 H (70-110) mg/dL Assessment and Plan Assessment: Impression: Acute on chronic hypoxemic, and hypercapnic respiratory failure, secondary to an exacerbation of chronic diastolic congestive heart failure along with a componen t of COPD exacerbation. Very severe chronic obstructive pulmonary disease, with an FEV1 22% of predicted Obstructive sleep apnea, patient is noncompliant with his noninvasive positive airway pressure machine Morbid obesity, with a BMI of 48.7 kg/m Chronic stage IIIa kidney disease Atrial fibrillation, anticoagulated with Eliquis Chronic lower extremity edema, with multiple venous stasis ulcers, History of hypertension History of hyperlipidemia Former tobacco dependence Severe cellulitis of right lower extremity, s/p debridement, maintained on a combination of doxycycline and Keflex on outpatient basis. Being followed by infectious disease on the case Recommendation: Continue BiPAP, alternate with nasal cannula Continue bronchodilators/DuoNeb Continue prednisone 30 mg daily Continue diuretics Continue doxycycline as per ID Continue anticoagulation therapy Overall prognosis remains poor and guarded Will continue to follow Time with Patient: Less than 30
--- NOTE | 2024-05-14 14:19 | P.PN ---
Subjective Progress Note Date: 05/13/24 Principal diagnosis: Reason for follow-up is right lower extremity wound and cellulitis Patient is a 59-year-old male with a past medical history significant for hypertension hyperlipidemia COPD heart failure with asthma atrial fibrillation recently admitted to the hospital with the patient did have right lower extremity infected hematoma presenting back to the hospital for worsening shortness of breath. On today's evaluation that is 05/13/2024, the patient continues to be afebrile, the patient continued complaint of shortness of breath and has been off and up on the BiPAP, happy denies any chest pain or any worsening cough no abdominal pain or worsening pain to the lower extremity still asking for more pain medication. No new lab has been repeated today Objective - Vital Signs Vital signs: Vital Signs Temp 97.6 F L 05/13/24 11:30 Pulse 91 05/13/24 11:30 Resp 15 05/13/24 11:30 BP 154/82 05/13/24 11:30 Pulse Ox 95 05/13/24 11:30 FiO2 50 05/13/24 11:30 - Exam GENERAL DESCRIPTION: Middle-age male lying in bed in no distress RESPIRATORY SYSTEM: Unlabored breathing , decreased breath sounds at bases HEART: S1 S2 regular rate and rhythm , ABDOMEN: Soft , no tenderness EXTREMITIES: Right leg wound currently dressed no drainage - Labs CBC & Chem 7: 05/10/24 08:09 05/12/24 06:40 Labs: Abnormal Lab Results - Last 24 Hours (Table) 05/13/24 05/13/24 05/13/24 Range/Units 16:35 19:42 20:06 ABG pCO2 87 H* (35-45) mmHg ABG HCO3 49 H* (21-25) mmol/L ABG Total CO2 51 H (19-24) mmol/L ABG O2 Saturation 98.3 H (94-97) % POC Glucose (mg/dL) 152 H 123 H (70-110) mg/dL 05/14/24 05/14/24 Range/Units 06:17 11:18 ABG pCO2 (35-45) mmHg ABG HCO3 (21-25) mmol/L ABG Total CO2 (19-24) mmol/L ABG O2 Saturation (94-97) % POC Glucose (mg/dL) 193 H 165 H (70-110) mg/dL Assessment and Plan (1) Wound of right lower extremity Current Visit: Yes Status: Acute Code(s): S81.801A - UNSPECIFIED OPEN WOUND, RIGHT LOWER LEG, INITIAL ENCOUNTER SNOMED Code(s): 22672035600426515 (2) Cellulitis of right lower extremity Current Visit: No Status: Acute Code(s): L03.115 - CELLULITIS OF RIGHT LOWER LIMB SNOMED Code(s): 90950542896896185 Plan: 1patient presented to hospital with increasing shortness of breath possible related underlying cardiopulmonary condition clinically not behaving as pneumonia with no fever or elevated white count. Pulmonary has been consulted for further management 2patient with a recent right lower extremity infected hematoma s/p drainage with a wound with developed deep wound with slough tissue and no significant surrounding redness 3-patient to continue-local wound care to the right lower extremity wound with the dry Aquacel silver dressing. 4patient local culture did grew drug-resistant Acinetobacter possible colonizer as the patient not running any fever white count is normal and there was no evidence of any redness or warmth 5patient to continue with doxycycline and monitor clinical course closely Dictation was produced using [employer] dictation software. please excuse any grammatical, word or spelling errors. Time with Patient: Less than 30
--- NOTE | 2024-05-14 14:20 | P.PN ---
Subjective Progress Note Date: 05/14/24 Principal diagnosis: Reason for follow-up is right lower extremity wound and cellulitis Patient is a 59-year-old male with a past medical history significant for hypertension hyperlipidemia COPD heart failure with asthma atrial fibrillation recently admitted to the hospital with the patient did have right lower extremity infected hematoma presenting back to the hospital for worsening shortness of breath. On today's evaluation that is 05/14/2024, Patient is afebrile patient is currently on BiPAP she has been complaining of shortness of breath denies any chest pain or cough no nausea open no abdominal pain no diarrhea still complaining of pain in the right lower extremity but no worsening. no new lab has been repeated today Objective - Vital Signs Vital signs: Vital Signs Temp 97.5 F L 05/14/24 10:50 Pulse 89 05/14/24 12:00 Resp 15 05/14/24 10:50 BP 113/69 05/14/24 10:50 Pulse Ox 95 05/14/24 10:50 FiO2 40 05/14/24 11:56 Intake & Output 05/13/24 05/14/24 05/14/24 18:59 06:59 18:59 Intake Total 540 Output Total 3400 2450 1120 Balance -2860 -2450 -1120 Weight 164.2 kg 164.2 kg Intake: Oral 540 Output: Urine 3400 2450 1120 Other: Voiding Method Urinal Urinal Urinal - Exam GENERAL DESCRIPTION: Middle-age male lying in bed in no distress RESPIRATORY SYSTEM: Unlabored breathing , decreased breath sounds at bases HEART: S1 S2 regular rate and rhythm , ABDOMEN: Soft , no tenderness EXTREMITIES: Right leg wound currently dressed no drainage - Labs CBC & Chem 7: 05/10/24 08:09 05/12/24 06:40 Labs: Abnormal Lab Results - Last 24 Hours (Table) 05/13/24 05/13/24 05/13/24 Range/Units 16:35 19:42 20:06 ABG pCO2 87 H* (35-45) mmHg ABG HCO3 49 H* (21-25) mmol/L ABG Total CO2 51 H (19-24) mmol/L ABG O2 Saturation 98.3 H (94-97) % POC Glucose (mg/dL) 152 H 123 H (70-110) mg/dL 05/14/24 05/14/24 Range/Units 06:17 11:18 ABG pCO2 (35-45) mmHg ABG HCO3 (21-25) mmol/L ABG Total CO2 (19-24) mmol/L ABG O2 Saturation (94-97) % POC Glucose (mg/dL) 193 H 165 H (70-110) mg/dL Assessment and Plan (1) Wound of right lower extremity Current Visit: Yes Status: Acute Code(s): S81.801A - UNSPECIFIED OPEN WOUND, RIGHT LOWER LEG, INITIAL ENCOUNTER SNOMED Code(s): 89060639551083011 (2) Cellulitis of right lower extremity Current Visit: No Status: Acute Code(s): L03.115 - CELLULITIS OF RIGHT LOWER LIMB SNOMED Code(s): 83645982711578711 Plan: 1patient presented to hospital with increasing shortness of breath possible related underlying cardiopulmonary condition clinically not behaving as pneumonia with no fever or elevated white count. Pulmonary has been consulted for further management 2patient with a recent right lower extremity infected hematoma s/p drainage with a wound with developed deep wound with slough tissue and no significant surrounding redness 3-patient to continue-local wound care to the right lower extremity wound with the dry Aquacel silver dressing. 4patient local culture did grew drug-resistant Acinetobacter possible colonizer as the patient not running any fever white count is normal and there was no evidence of any redness or warmth 5patient will continue with the doxycycline for possible cellulitis of right leg and continue supportive care Dictation was produced using [employer] dictation software. please excuse any grammatical, word or spelling errors.
[2024-05-14] MEDS: FUROSEMIDE 10 MG/ML 4 ML VIAL IV SCH (15:32)
[2024-05-14 15:36] LABS: Glucose,Whole Blood 265 mg/dL (70-110)
[2024-05-14 16:27] LABS: Glucose,Whole Blood 288 mg/dL (70-110)
[2024-05-14 20:00] LABS: Glucose,Whole Blood 238 mg/dL (70-110)
--- NOTE | 2024-05-15 04:05 | P.PN ---
Subjective Progress Note Date: 05/14/24 59-year-old male with a past medical history of atrial fibrillation on anticoagulation with Eliquis, chronic CHF, COPD, hypertension, hyperlipidemia, obstructive sleep apnea, depression, prior history of smoking and morbid obesity BMI 47.5. Patient was recently discharged to [facility] [place] on 04/04/2024 after prolonged hospitalization due to right lower extremity cellulitis/abscess and wound. Patient was discharged with a course of antibiotics of Keflex and doxycycline. Patient presented back to hospital due to worsening shortness of breath. Patient initially presented to [facility]. Chest x-ray showed small bilateral pleural effusions and CHF. Patient was placed on BiPAP. Denied any complaints of fever or chills. Complains of right lower extremity pain. Does have cough without any sputum production. Laboratory showed WBC 4.2 hemoglobin 13.9 and platelets 163 sodium 136 potassium 5.3 chloride 100 bicarb is 34 BUN 37 creatinine 0.88 and blood sugar 159 and calcium 8.1. Creatinine 0.9. Patient was given a dose of IV Solu-Medrol and IV Levaquin in the ER. 05/09/2024 --patient is seen and evaluated in room at bedside; has been afebrile, patient is breathing comfortably and is currently on 3 L nasal oxygen, patient denies having any significant cough no chest pain, patient denies nausea vomiting or diarrhea and no abdominal pain denies any worsening pain to the right leg or any drainage. No CBC was done today culture from the right leg is currently growing gram- negative with ID sensitivity pending patient presented to hospital with increasing shortness of breath possible related underlying cardiopulmonary condition clinically not behaving as pneumonia with no fever or elevated white count. Pulmonary has been consulted for further management patient with a recent right lower extremity infected hematoma s/p drainage with a wound with developed deep wound with slough tissue and no significant surrounding redness -patient to continue-local wound care to the right lower extremity wound with the Aquacel silver dressing change daily followed by Gonzalez wrap to keep the swelling down patient local culture growing gram-negative with ID sensitivity pending continue with the cefepime and doxycycline and monitor clinical course closely 05/10/2024 -patient is being seen and evaluated for a follow-up. He is alternating within the BiPAP and oxygen at 3 L/min nasal cannula. Remains bronchospastic and wheezy. He still producing excellent urine output. Lab review shows BUN 66 with a creatinine of 1.2 and continues to have swelling in lower extremities. Sodium levels at 139. White cell count is at 9.2 with a hemoglobin of 15.1. Antibiotic coverage with doxycycline and ID is on the case. The cultures from the wound showed multidrug-resistant Acinetobacter. Blood glucose remains elevated above 250; we will add insulin lispro 5 units before each meal; continue to monitor Accu-Cheks q. ACH S with insulin sliding scale 05/11/2024 Patient is seen in follow-up today continues on the BiPAP continues to report shortness of breath. Patient is lethargic although arousable with pulmonary fo llowing. Patient is maintained on IV steroids along with [id number] DuoNebs. Infectious disease is following and is continued on oral doxycycline. Continue with fluid restrictions and also diuretic use. Patient is maintained on insulins with Accu-Cheks before meals and at bedtime and will adjust accordingly as blood sugars are chronically uncontrolled and elevated. Patient is also continued on steroids. Encouraged increase activity as tolerated and recommend PT/OT therapy evaluation. Patient with significant comorbidities and unable to care for himself recommend PT/OT therapy evaluation and rehab. Patient has had frequent rehospitalization's most recently and has been hospitalized more than 3 times. 05/12/2024 Patient is seen in follow-up with no acute overnight issues noted. Patient continues to report shortness of breath maintained on chronic nasal cannula 3 to 4 L daily as well as BiPAP as needed and at night. Working on possible ECF for continued strength and mobility. Patient feels he cannot take care of himself at home and needs further medical care. Case management following and submitting for insurance authorization. Recommend PT/OT therapy evaluation for updated notes. 05/13/2024 Patient is seen in follow-up today with pulmonary and infectious disease following. Patient continues on DuoNeb treatments along with steroids and being transition to oral prednisone. Patient continues to report significant shortness of breath and difficulty in breathing overnight. Patient has been instructed to use BiPAP as needed as well as 8 PM to 8 AM. Patient is significantly weak and high risk for falls with significant comorbidities. Patient awaiting insurance authorization for ECF. Patient would benefit from ECF on discharge. Case management is following. 05/14/2024 Patient is seen in follow-up today maintained on BiPAP throughout the day as patient is having increasing shortness of breath and will readjust medications and transition back to IV Lasix. Chest x-ray yesterday shows some vascular congestion and will diurese and monitor improvements in respiratory status. Patient is to use BiPAP as needed as well as at 8 PM to 8 AM daily. Patient did receive insurance authorization for ECF and initially was going to be discharged today although has been continuously using the BiPAP today. Patient is afebrile denies chest pain or palpitations. Patient tolerating diet and blood sugars have been elevated. Patient is also on steroids and has been transitioned to oral prednisone. Review of systems: Constitutional: No reports of fatigue, fever, or chills Cardiovascular: No reports of chest pain or palpitations Respiratory: reports of continued shortness of breath or cough GI: No reports of nausea, vomiting, or diarrhea : No reports of dysuria or retention Neurovascular: reports of generalized weakness and some continued right foot pain All medications have been reviewed Physical exam: Patient is laying in the bed. Asleep, arousable but fatigues easily. Currently on BiPAP. Mild distress due to shortness of breath. Intermittently using his chronic 3 L, well-developed, elderly appearing, morbidly obese HEENT: Normocephalic. Neck is supple. Pupils reactive. Nostrils clear. Oral cavity is moist. Neck reveals no JVD, carotid bruits, or thyromegaly. CHEST EXAMINATION: Trachea is central. Symmetrical expansion. Bibasilar diminished sounds. Expiratory wheezing. Scattered rhonchi. CARDIAC: Normal S1, S2 with no gallops. No murmurs ABDOMEN: Soft. Obese. Bowel sounds normal. No organomegaly. No abdominal bru its. Extremities: Bilateral lower extremity 1+ edema with right lower extremity wound on the lateral side of the colon.. No clubbing or cyanosis, chronic discoloration of the lower extremities Neurologically asleep but arousable, awake, alert, oriented x3. Able to move all extremities. No gross focal deficits noted, diffusely weak Skin: No rash or skin lesions. Psychiatric: Cooperative. Non-suicidal Musculoskeletal: No joint swelling or deformity. Assessment: Acute on chronic hypoxic and hypercapnic respiratory failure requiring BiPAP. Chronically wears 3 L outpatient Acute COPD exacerbation Acute on chronic CHF with preserved EF Paroxysmal atrial fibrillation on anticoagulation with Eliquis CKD stage III Recent admission with right lower extremity cellulitis s/p debridement and wound cultures growing MRSA and Acinetobacter species. Patient was discharged on Keflex and doxycycline. bilateral lower extremity venous stasis Obstructive sleep apnea Morbid history BMI 47.5 Hypertension Diabetes type 2 insulin-dependent Hyperemia Prior history of smoking Depression GI and DVT prophylaxis. Patient is on full anticoagulation. Plan: Patient is currently on BiPAP. Recommend using BiPAP intermittently as needed as well as 8 PM to 8 AM. Patient having increased shortness of breath today requiring BiPAP throughout most of the day. Patient will have BiPAP at ECF and case management following making arrangements for patient to have BiPAP on discharge. Patient reports he does have BiPAP at the home. Patient was continued on IV Solu-Medrol and has been transitioned to oral prednisone taper. Continue with DuoNebs and Symbicort. Chest x-ray yesterday shows some vascular congestion and continued CHF. Will transition back to IV Lasix twice daily and monitor respiratory status. Patient will be on 40 mg Lasix twice daily p.o. on discharge Continue with home medications and antibiotics. Infectious disease following as patient has recently had right lower extremity cellulitis with MRSA Continue monitoring Accu-Cheks before meals and at bedtime and will continue ins ulin sliding scale and insulin regimen. Adjust accordingly Continue with pain management with [place] 7.5. Discontinuing Dilaudid as patient is lethargic Wound care following recommend to continue with current wound care of the right lower extremity. Elevate lower extremities while at rest. Infectious disease following and patient is continued on antibiotics from previous right lower extremity cellulitis and wounds. Patient will need outpatient follow-up at the wound care center PT/OT therapy evaluated recommending ECF. case management/social work following and awaiting insurance authorization. Authorization approved today. Patient is extremely weak and has had multiple hospitalizations most recently with prolonged hospitalization and would benefit from continued aggressive PT/OT the rapy and ongoing medical care regarding his COPD and CHF as well as wound care. Patient is unable to care for himself at home and has had multiple hospitalizations due to this. Due to significant complex medical issues, overall prognosis guarded at this time. Monitor the patient overnight back on IV Lasix with possible discharge planning in the next 24 hours The impression and plan of care has been dictated by Shayna Garcia, Nurse Practitioner as directed. Dr. Ja MD I have performed a history and examination and MDM of this patient, discussed the same with the dictator, and agree with the dictator's assessment and plan as written ,documented as a scribe. Based on total visit time, I have performed more than 50% of the visit. Objective - Vital Signs Vital signs: Vital Signs Temp 97.5 F L 05/14/24 10:50 Pulse 89 05/14/24 12:00 Resp 15 05/14/24 10:50 BP 113/69 05/14/24 10:50 Pulse Ox 95 05/14/24 10:50 FiO2 40 05/14/24 11:56 Intake & Output 05/13/24 05/14/24 05/14/24 18:59 06:59 18:59 Intake Total 540 Output Total 3400 2450 1120 Balance -2860 -2450 -1120 Weight 164.2 kg 164.2 kg Intake: Oral 540 Output: Urine 3400 2450 1120 Other: Voiding Method Urinal Urinal Urinal - Labs CBC & Chem 7: 05/10/24 08:09 05/12/24 06:40 Labs: Abnormal Lab Results - Last 24 Hours (Table) 05/13/24 05/13/24 05/13/24 Range/Units 16:35 19:42 20:06 ABG pCO2 87 H* (35-45) mmHg ABG HCO3 49 H* (21-25) mmol/L ABG Total CO2 51 H (19-24) mmol/L ABG O2 Saturation 98.3 H (94-97) % POC Glucose (mg/dL) 152 H 123 H (70-110) mg/dL 05/14/24 05/14/24 Range/Units 06:17 11:18 ABG pCO2 (35-45) mmHg ABG HCO3 (21-25) mmol/L ABG Total CO2 (19-24) mmol/L ABG O2 Saturation (94-97) % POC Glucose (mg/dL) 193 H 165 H (70-110) mg/dL
[2024-05-15 06:17] LABS: Glucose,Whole Blood 156 mg/dL (70-110)
[2024-05-15] MEDS: predniSONE 20 MG TAB PO SCH (08:27)
[2024-05-15 11:31] LABS: Glucose,Whole Blood 127 mg/dL (70-110)
--- NOTE | 2024-05-15 12:27 | P.PN ---
Subjective Progress Note Date: 05/15/24 Principal diagnosis: Acute on chronic hypoxic and hypercapnic respiratory failure, multifactorial This is a 59-year-old male patient who was hospitalized with worsening shortness of breath. The patient was discharged to [facility] on 05/05/2024 after having a prolonged hospitalization during which the patient was treated for right lower extremity wound/abscess with secondary cellulitis that failed outpatient treatment. The patient required debridement and the cultures were positive for MRSA and the patient was sent to [facility] with a course of oral antibiotics including Keflex and doxycycline. Nevertheless, he ended up coming back with worsening shortness of breath. Chest x-ray shows some small bilateral pleural effusion. The patient's chest x-ray was most consistent with CHF. In the emergency, the patient was quite hypercapnic and based on that, the patient was placed on a BiPAP pressure of 12 over 5 cm of water. He is awake and alert and is currently on FiO2 of 50%. No signs of any CO2 narcosis. The white cell count is at 5.7 with a hemoglobin 13.9 and a platelet count of 188. BUN 31 and a creatinine of 1.2. And the patient's sodium levels at 143, serum bicarb is at 35. The patient is currently on DuoNeb nebulized treatments [id number]. The pat ient was started on IV Solu-Medrol suspecting also component of COPD exacerbation. Cardiac enzymes has not been checked. proBNP has not been checked. Lactic acid level currently is at 0.9. Denies having any chest pain. No significant sputum production. Hemodynamically stable. This patient's comorbidities are multiple. The patient has CHF with preserved LV function. Most recent left ventricular ejection fraction has been within normal limits. The patient also has also diabetes mellitus type 2, chronic stage IIIa kidney disease, hypertension, paroxysmal atrial fibrillation and the patient has undergone recent cardioversion on 04/08/2024. He is morbidly obese with a BMI of 47 and is known to have obstructive sleep apnea, noncompliant to CPAP therapy. He has been hospitalized also in the past with signs of fluid overload. He was 22,024, the patient is being seen for a follow-up. on the patient just got transferred to the medical floor. This morning, the patient is currently on 3 days of oxygen by nasal cannula the patient was taken off the BiPAP. Started on diuretics yesterday and the fluid balance has been negative and is producing adequate amount of urine output. BUN is 47 with a creatinine of 0.9. Potassium is at 5.4 with a sodium level of 138. WBC count is 6.7 with a hemoglobin 14.6. Seen by infectious disease. Started on cefepime IV and doxycycline. Repeat wound culture showing gram-negative bacillus. On 05/09/2024, the patient sitting up in a chair and the patient is calm and comfortable. Repeat blood gas was done today and showed a pH of 7.37 with a pCO2 of 69 and pO2 of 68. Follow-up chest x-ray from today shows no acute cardiopulmonary disease and there is cardiomegaly and mild pulm vessel congestion. No labs are available from today. BUN is 47 records of 0.9. Fluid balance is -3.1 L and the patient is headed towards a negative fluid balance. Remains on bronchodilators. Remains on IV Lasix 40 mg every 12 hours. Remains on IV cefepime. He is also on doxycycline. He is also on IV Solu-Medrol 60 mg IV push every 6 hours. Remains on anticoagulation with Eliquis 5 mg p.o. twice a day. Levemir insulin 15 units twice daily plus a sliding scale coverage. 05/10/2024, patient is being seen for a follow-up. He is alternating within the BiPAP and oxygen at 3 L/min nasal cannula. Remains bronchospastic and wheezy. He still producing excellent urine output. BUN 66 with a creatinine of 1.2 and continues to have swelling in lower extremities. Sodium levels at 139. White cell count is at 9.2 with a hemoglobin of 15.1. Antibiotic coverage with doxycycline and ID is on the case. The cultures from the wound showed multidrug-resistant Acinetobacter. Patient was evaluated today on 05/11/2024, presently on BiPAP, intermittently on 3 L nasal cannula, continues to have cough wheezing and shortness of breath, on physical examination he sounded a bit bronchospastic, patient remains on antibiotics/doxycycline as per ID patient had history of multidrug-resistant Acinetobacter. Pulmonary hernandez patient is on proper bronchodilators is also on proper diuretics, and on BiPAP. Being followed by infectious disease for his chronic right lower extremity cellulitis.WBC count is 9.2 electrolytes are normal BUN is 66 creatinine 1.28 BNP level is 3060 Patient was evaluated today on 05/12/2024, complaining again about his multiple issues including chronic shortness of breath and about his lower extremities and ongoing right lower extremity cellulitis and nonhealing ulcers in the right lower extremity. Pulmonary hernandez patient remains on diuretics remains on oxygen remains on BiPAP remains on bronchodilators and steroids. Nonetheless patient continues to have shortness of breath at rest and on exertion labs today were all reviewed blood sugar was noted to be 315 hence I cut down his methylprednisolone to 40 mg IV push every 8 hours. Reevaluate today on 05/13/2024, patient is on BiPAP, quite sleepy, last night had some worsening shortness of breath, I recommended Decadron I also recommended Lasix, chest x-ray was also noted, ABG was noted, actually his workup does not seem to be remarkable and his ABG is expected to be as such. With relatively high pCO2 but he is compensating metabolically well maintaining a pH of 7.32. ABG showed a pO2 of 114 pCO2 85 pH of 7.32 chest x-ray did show minimal pulmonary edema/interstitial pulmonary vascular congestion but he did receive Lasix and he is on diuretics maintenance Reevaluate today on 05/14/2024, patient is sitting at the edge of the bed, on BiPAP, does not seem to be in distress, however he continues to complain of shortness of breath all the time, continues to complain of right-sided foot pain, yesterday patient was evaluated again by the a team and did not feel that the patient needs to be admitted to the ICU. Patient did receive steroids and diuretics, and he seems to be doing fairly well except for his ongoing complaints of being short of breath and having pain. Repeat ABG yesterday showed a pO2 of 104 pCO2 87 pH of 7.35 and that basically about his baseline. FiO2 could be cut down to 35% patient remains on diuretics for chronic diastolic congestive heart failure and he is maximal on bronchodilators Patient was seen today on 05/15/2024, patient is basically about the same. On BiPAP, FiO2, down from 40% to 35% based on his last ABG. Continues to have intermittent episodes of shortness of breath and chronic pain in right lower extremity. Patient remains on bronchodilators antibiotics, diuretics, no major issue or change in the last 24 hours. No labs done today except a blood sugar of 127. Objective - Vital Signs Vital signs: Vital Signs Temp 97.9 F 11/15/24 08:00 Pulse 88 05/15/24 12:15 Resp 18 05/15/24 11:07 BP 136/82 05/15/24 11:07 Pulse Ox 98 05/15/24 11:07 FiO2 35 05/15/24 12:18 Intake & Output 05/14/24 05/15/24 05/15/24 18:59 06:59 18:59 Intake Total 240 Output Total 2420 1450 1200 Balance -2420 -1450 -960 Weight 164.2 kg 156.2 kg Intake: Oral 240 Output: Urine 2420 1450 1200 Other: Voiding Method Urinal Urinal Urinal # Voids 1 # Bowel Movements 1 - Exam Physical exam: 62-year-old white male morbidly obese on BiPAP 06/04/40, changed FiO2 to 35% HEENT PERRLA, EOMI, nonicteric moist mucous membranes Neck supple. No neck masses no JVD no stridor Cardiovascular: Irregular rhythm and rate. S1-S2 normal. No S3 or S4. No murm ur Lungs diminished breath sound bilaterally no crackles rhonchi or wheezes Abdomen obese, soft bowel sounds are heard. No masses or tenderness. Extremities reveal 3+ bilateral lower extremity pitting edema. Blistering cellulitis to right lower extremity wrapped with sterile dressing Skin: As noted above Neurologic: Alert oriented x 3 no gross focal deficit Psychiatric: Normal mood affect and no mental status examination - Labs CBC & Chem 7: 05/10/24 08:09 05/12/24 06:40 Labs: Abnormal Lab Results - Last 24 Hours (Table) 05/14/24 05/14/24 05/14/24 Range/Units 15:34 16:25 19:58 POC Glucose (mg/dL) 265 H 288 H 238 H (70-110) mg/dL 05/15/24 05/15/24 Range/Units 06:08 11:30 POC Glucose (mg/dL) 156 H 127 H (70-110) mg/dL Assessment and Plan Assessment: Impression: Acute on chronic hypoxemic, and hypercapnic respiratory failure, secondary to an exacerbation of chronic diastolic congestive heart failure along with a component of COPD exacerbation. Very severe chronic obstructive pulmonary disease, with an FEV1 22% of predicted Obstructive sleep apnea, patient is noncompliant with his noninvasive positive airway pressure machine Morbid obesity, with a BMI of 48.7 kg/m Chronic stage IIIa kidney disease Atrial fibrillation, anticoagulated with Eliquis Chronic lower extremity edema, with multiple venous stasis ulcers, History of hypertension History of hyperlipidemia Former tobacco dependence Severe cellulitis of right lower extremity, s/p debridement, maintained on a combination of doxycycline and Keflex on outpatient basis. Being followed by infectious disease on the case Recommendation: Continue BiPAP, alternate with nasal cannula Continue bronchodilators/DuoNeb Continue prednisone 30 mg daily Continue diuretics Continue doxycycline as per ID Continue anticoagulation therapy Overall prognosis remains poor and guarded Considering this patient's history and recurrent admissions, even if discharged today, the patient will bounce back somehow mostly because of his overall clinical condition Will continue to follow Time with Patient: Less than 30
--- NOTE | 2024-05-15 14:51 | P.PN ---
Subjective Progress Note Date: 05/15/24 Principal diagnosis: Reason for follow-up is right lower extremity wound and cellulitis Patient is a 59-year-old male with a past medical history significant for hypertension hyperlipidemia COPD heart failure with asthma atrial fibrillation recently admitted to the hospital with the patient did have right lower extremity infected hematoma presenting back to the hospital for worsening shortness of breath. On today's evaluation that is 05/15/2024, patient has been afebrile, patient continued complaint of shortness of breath denies any chest pain or cough no nausea vomiting abdominal pain or diarrhea. No new lab has been obtained today last chest x-ray from 05/13/2024 with mostly cardiomegaly mild pulmonary vascular congestion Objective - Vital Signs Vital signs: Vital Signs Temp 97.9 F 05/15/24 08:00 Pulse 90 05/15/24 12:25 Resp 18 05/15/24 11:07 BP 136/82 05/15/24 11:07 Pulse Ox 98 05/15/24 11:07 FiO2 35 05/15/24 12:18 Intake & Output 05/14/24 05/15/24 05/15/24 18:59 06:59 18:59 Intake Total 240 Output Total 2420 1450 1200 Balance -2420 -1450 -960 Weight 164.2 kg 156.2 kg Intake: Oral 240 Output: Urine 2420 1450 1200 Other: Voiding Method Urinal Urinal Urinal # Voids 1 # Bowel Movements 1 - Exam GENERAL DESCRIPTION: Middle-age male lying in bed in no distress RESPIRATORY SYSTEM: Unlabored breathing , decreased breath sounds at bases HEART: S1 S2 regular rate and rhythm , ABDOMEN: Soft , no tenderness EXTREMITIES: Right leg wound currently dressed no drainage - Labs CBC & Chem 7: 05/10/24 08:09 05/12/24 06:40 Labs: Abnormal Lab Results - Last 24 Hours (Table) 05/14/24 05/14/24 05/14/24 Range/Units 15:34 16:25 19:58 POC Glucose (mg/dL) 265 H 288 H 238 H (70-110) mg/dL 05/15/24 05/15/24 Range/Units 06:08 11:30 POC Glucose (mg/dL) 156 H 127 H (70-110) mg/dL Assessment and Plan (1) Wound of right lower extremity Current Visit: Yes Status: Acute Code(s): S81.801A - UNSPECIFIED OPEN WOUND, RIGHT LOWER LEG, INITIAL ENCOUNTER SNOMED Code(s): 86620852202166991 (2) Cellulitis of right lower extremity Current Visit: No Status: Acute Code(s): L03.115 - CELLULITIS OF RIGHT LOWER LIMB SNOMED Code(s): 16063582829807779 Plan: 1patient presented to hospital with increasing shortness of breath possible related underlying cardiopulmonary condition clinically not behaving as pneumonia with no fever or elevated white count. Pulmonary has been consulted for further management 2patient with a recent right lower extremity infected hematoma s/p drainage with a wound with developed deep wound with slough tissue and no significant surrounding redness 3-patient local culture did grew drug-resistant Acinetobacter possible colonizer as the patient not running any fever white count is normal and there was no evidence of any redness or warmth 4patient to continue-local wound care to the right lower extremity wound with the dry Aquacel silver dressing and oral doxycycline Dictation was produced using [employer] dictation software. please excuse any grammatical, word or spelling errors. Time with Patient: Less than 30
--- NOTE | 2024-05-15 14:51 | P.DS ---
Providers Date of admission: 05/07/24 11:36 Expected date of discharge: 05/15/24 Attending physician: Danielle Urena Consults: 05/07/24 11:20 Consult Physician Urgent Consulting Provider: Rubén Gregory Consult Reason/Comments: anum Do you want consulting provider notified?: Already Contacted 05/07/24 11:37 Consult Physician Urgent Consulting Provider: Kamryn Galeana Consult Reason/Comments: leg wound Do you want consulting provider notified?: Yes [facility] care [facility] Course: Final diagnosis Acute on chronic hypoxic and hypercapnic respiratory failure requiring BiPAP. Chronically wears 3 L outpatient as well as BiPAP at night Acute COPD exacerbation Acute on chronic CHF with preserved EF Paroxysmal atrial fibrillation on anticoagulation with Eliquis CKD stage III Recent admission with right lower extremity cellulitis s/p debridement and wound cultures growing MRSA and Acinetobacter species. bilateral lower extremity venous stasis Obstructive sleep apnea Morbid history BMI 47.5 Hypertension Severe noncompliance to medication and treatment plans Diabetes type 2 insulin-dependent Hyperemia Prior history of smoking Depression GI and DVT prophylaxis. Patient is on full anticoagulation. Discharge disposition Patient is being discharged in a stable condition with guarded prognosis to [facility]. Patient will follow-up with Dr. Iverson in the outpatient setting upon discharge. Patient is to continue with doxycycline and wound care with outpatient follow-up with Dr. Galeana as scheduled. Patient is to follow-up with pulmonary and cardiology outpatient. Total time taken is greater than 35 minutes. Hospital course This is a 59-year-old male who was recently admitted with shortness of breath worsening over the last few days and acute COPD exacerbation as well as CHF exacerbation. Patient with multiple consultations following maintained on BiPAP and he chronically wears a BiPAP at home as well as 3 to 4 L via nasal cannula chronically. Patient is extremely obese and noncompliant with all medication and treatment plans. Patient is extremely noncompliant with fluid restrictions and needs to be constantly redirected regarding total restrictions of 1200 cc or less daily. Patient is maintained on torsemide and will continue a prednisone taper along with inhalers and [id number] DuoNebs. Patient is to continue on BiPAP throughout the day as needed as well as 8P to 8 a every night. Patient is continued on local wound care of the lower extremity right side with Aquacel silver dressing changes along with Gonzalez wraps to bilateral lower extremities. Patient is maintained on doxycycline per infectious disease for recent history of MRSA infection of the right lower extremity and heel with cellulitis. Roney weston has chronic venous stasis of the lower extremities and extremely noncompliant as well with heart healthy and consistent carb diet. Patient's blood sugars are elevated although more controlled on current regimen and will continue with sliding scale, long-acting, and Premeal insulins. Patient with significant weakness and multiple hospitalization has progressively become more weak and evaluated by physical therapy recommending rehab. Patient is agreeable and patient's insurance has approved rehab. Patient has been cleared by consultations for discharge with close outpatient follow-up. Please refer to other consultation notes for further HPI. Currently no reports of chest pain, reports continuous shortness of breath, denies palpitations. Patient is afebrile. Patient also reports pain of the right lower extremity and is maintained on [place] and was receiving Dilaudid in the hospital although given his respiratory demands and being too lethargic, patient is difficult to handle regarding pain control due to his increasing respiratory demands. No reports of nausea or vomiting and patient is tolerating diet. Patient will be going to [facility]. Overall extremely poor and guarded prognosis and patient is an extremely high risk for readmissions due to his significant comorbidities, prolonged hospitalizations, and his overall noncompliance with medications and treatment plans. It is recommended that if patient requires rehospitalization that patient be transferred to a tertiary treatment center as patient has had multiple hospitalizations and no significant improvement regarding his multiple comorbidities. Patient has shown extreme clinical decline since November 2023. Physical exam: Gen: This is a 59-year-old male who is awake, alert and oriented, well- developed, elderly appearing, unkempt, morbidly obese, ill-appearing HEENT: Head is atraumatic, normocephalic. Pupils equal, round. Sclerae is anicteric. NECK: Supple. No JVD. No lymphadenopathy. No thyromegaly. LUNGS: Diminished breath sounds bilaterally with some scattered rhonchi. Faint expiratory wheezing noted. No intercostal retractions. HEART: S1, S2 are muffled ABDOMEN: Soft. Morbidly obese, protuberant bowel sounds are present. No masses. No tenderness. EXTREMITIES: Chronic lower pedal edema and discoloration. No calf tenderness. NEUROLOGICAL: Patient is awake, alert and oriented x3. Cranial nerves 2 through 12 are grossly intact. Diffusely weak Please refer to medication reconciliation sheet for a list of medications. The impression and plan of care has been dictated by Shayna Garcia, Nurse Practitioner as directed. Dr. Ja MD I have performed a history and examination and MDM of this patient, discussed the same with the dictator, and agree with the dictator's assessment and plan as written ,documented as a scribe. Based on total visit time, I have performed more than 50% of the visit. Patient Condition at Discharge: Serious Plan - Discharge Summary New Discharge Prescriptions: New Hydrocortisone Cream [Hydrocortisone 1% Cream] 1 applic TOPICAL BID PRN each PRN Reason: Skin Irritation HYDROcodone/APAP 10-325MG [[place] 10-325] 1 each PO Q6HR PRN #4 tab PRN Reason: Pain INSULIN ASPART (NovoLOG) [NovoLOG (formulary)] 5 unit SQ AC-TID each Continue hydrOXYzine pamoate [Vistaril] 50 mg PO HS PRN PRN Reason: ANXIETY/INSOMNIA Dapagliflozin Propanediol [Farxiga] 10 mg PO DAILY 30 Days #30 tab Amiodarone [Cordarone] 400 mg PO BID tab Metoprolol Tartrate [Lopressor] 150 mg PO BID tab Prochlorperazine [Compazine] 10 mg PO Q8H PRN PRN Reason: Nausea And Vomiting Naloxone HCl [Narcan] 4 mg NASAL DIRECTED PRN PRN Reason: overdose Tamsulosin [Flomax] 0.4 mg PO DAILY Acetaminophen [Tylenol] 650 mg PO Q6H PRN PRN Reason: Fever And/ Or Pain Torsemide [Demadex] 10 mg PO DAILY SILVER sulfADIAZINE Cream [Silvadene 1% Cream] 1 applic TOPICAL DAILY each ALPRAZolam [Xanax] 0.25 mg PO TID #6 tab Atorvastatin [Lipitor] 10 mg PO HS busPIRone HCl [Buspar] 5 mg PO TID 30 Days #90 tab Apixaban [Eliquis] 5 mg PO BID Finasteride [Proscar] 5 mg PO DAILY Sertraline [Zoloft] 50 mg PO DAILY Albuterol Sulfate [Ventolin HFA] 1 puff INHALATION RT-BID Spironolactone [Aldactone] 12.5 mg PO DAILY tab diphenhydrAMINE [Benadryl] 25 mg PO BID PRN cap PRN Reason: Itching Ipratropium-Albuterol Nebulize [Duoneb 0.5 mg-3 mg/3 ml Soln] 3 ml INHALATION RT-QID each Ipratropium-Albuterol Nebulize [Duoneb 0.5 mg-3 mg/3 ml Soln] 3 ml INHALATION RT-Q2H PRN each PRN Reason: Shortness Of Breath Or Wheezing Insulin Detemir (Levemir) [Levemir] 15 unit SQ BID@0700,2100 each predniSONE See Taper PO DIRECTED #30 tab Pantoprazole [Protonix] 40 mg PO AC-BID tab Budesonide-Formot 160-4.5 Mcg [Symbicort 160-4.5 Mcg Inhaler] 2 puff INHALATION RT-BID each Calcium Carbonate [Tums] 1,000 mg PO QID PRN tab PRN Reason: Heartburn INSULIN ASPART (NovoLOG) [NovoLOG (formulary)] See Protocol SQ ACHS 0.9 % Sodium Chloride [Sodium Chloride Flush] 10 ml IV BID Doxycycline [Vibramycin] 100 mg PO BID 10 Days #20 capsule Pregabalin [Lyrica] 150 mg PO BID #6 cap Discontinued Cephalexin [Keflex] 500 mg PO Q6HR 10 Days #40 cap HYDROcodone/APAP 7.5-325MG [[place] 7.5-325] 1 tab PO Q6HR PRN #6 tab PRN Reason: Pain Discharge Medication List hydrOXYzine pamoate [Vistaril] 50 mg PO HS PRN 07/09/22 [History] Atorvastatin [Lipitor] 10 mg PO HS 08/01/22 [History] Dapagliflozin Propanediol [Farxiga] 10 mg PO DAILY 30 Days #30 tab 09/10/22 [Rx] busPIRone HCl [Buspar] 5 mg PO TID 30 Days #90 tab 09/10/22 [Rx] Apixaban [Eliquis] 5 mg PO BID 12/12/23 [History] Finasteride [Proscar] 5 mg PO DAILY 12/12/23 [History] Sertraline [Zoloft] 50 mg PO DAILY 12/12/23 [History] Albuterol Sulfate [Ventolin HFA] 1 puff INHALATION RT-BID 04/04/24 [History] Amiodarone [Cordarone] 400 mg PO BID tab 04/22/24 [Rx] Budesonide-Formot 160-4.5 Mcg [Symbicort 160-4.5 Mcg Inhaler] 2 puff INHALATION RT-BID each 04/22/24 [Rx] Calcium Carbonate [Tums] 1,000 mg PO QID PRN tab 04/22/24 [Rx] Insulin Detemir (Levemir) [Levemir] 15 unit SQ BID@0700,2100 each 04/22/24 [Rx] Ipratropium-Albuterol Nebulize [Duoneb 0.5 mg-3 mg/3 ml Soln] 3 ml INHALATION RT-Q2H PRN each 04/22/24 [Rx] Ipratropium-Albuterol Nebulize [Duoneb 0.5 mg-3 mg/3 ml Soln] 3 ml INHALATION RT-QID each 04/22/24 [Rx] Metoprolol Tartrate [Lopressor] 150 mg PO BID tab 04/22/24 [Rx] Pantoprazole [Protonix] 40 mg PO AC-BID tab 04/22/24 [Rx] Spironolactone [Aldactone] 12.5 mg PO DAILY tab 04/22/24 [Rx] diphenhydrAMINE [Benadryl] 25 mg PO BID PRN cap 04/22/24 [Rx] predniSONE See Taper PO DIRECTED #30 tab 04/22/24 [Rx] 0.9 % Sodium Chloride [Sodium Chloride Flush] 10 ml IV BID 05/01/24 [History] Acetaminophen [Tylenol] 650 mg PO Q6H PRN 05/01/24 [History] INSULIN ASPART (NovoLOG) [NovoLOG (formulary)] See Protocol SQ ACHS 05/01/24 [History] Naloxone HCl [Narcan] 4 mg NASAL DIRECTED PRN 05/01/24 [History] Prochlorperazine [Compazine] 10 mg PO Q8H PRN 05/01/24 [History] Tamsulosin [Flomax] 0.4 mg PO DAILY 05/01/24 [History] Torsemide [Demadex] 10 mg PO DAILY 05/01/24 [History] Doxycycline [Vibramycin] 100 mg PO BID 10 Days #20 capsule 05/05/24 [Rx] SILVER sulfADIAZINE Cream [Silvadene 1% Cream] 1 applic TOPICAL DAILY each 05/05/24 [Rx] ALPRAZolam [Xanax] 0.25 mg PO TID #6 tab 05/15/24 [Rx] HYDROcodone/APAP 10-325MG [[place] 10-325] 1 each PO Q6HR PRN #4 tab 05/15/24 [Rx] Hydrocortisone Cream [Hydrocortisone 1% Cream] 1 applic TOPICAL BID PRN each 05/15/24 [Rx] INSULIN ASPART (NovoLOG) [NovoLOG (formulary)] 5 unit SQ AC-TID each 05/15/24 [Rx] Pregabalin [Lyrica] 150 mg PO BID #6 cap 05/15/24 [Rx] Follow up Appointment(s)/Referral(s): Parish Iverson MD [Primary Care Provider] - 1-2 days Sita Waterman MD [STAFF PHYSICIAN] - 1 Week Aron Lua MD [STAFF PHYSICIAN] - 1 Week Activity/Diet/Wound Care/Special Instructions: Patient is going to [facility] [place] Activity as tolerated Bipap at hs and prn 06/04 with 35% FI02 - wear from 8pm to 8am O2 3L/NC 24/7 Pulse ox of 88% - 95% is acceptable Strongly reinforce fluid restrictions of 1200 cc daily Continue prednisone taper Follow-up with primary care provider on discharge Follow-up with pulmonary outpatient Follow-up with cardiology outpatient Continue on doxycycline Continue with local wound care to the lower extremities on the right with dry Aquacel silver dressings daily and if becoming soiled and Gonzalez wraps from the toes up to the knees daily Elevate lower extremities while at rest Continue monitoring blood sugars and continue with heart healthy diabetic diet NovoLog sliding scale 0-150 equals 0 units 151-200 equals 2 units 201-250 equals 4 units 251-300 equals 6 units 301-350 equals 8 units 351-400 equals 10 units Please notify provider if blood sugar is 400 or above Continue with long-acting as well as Premeal insulins in addition to sliding sca le Discharge Disposition: TRANSFER TO SNF/ECF
[2024-05-15 16:08] LABS: Glucose,Whole Blood 253 mg/dL (70-110)
[2024-05-15] MEDS: FUROSEMIDE 10 MG/ML 10 ML VIAL IV STA (18:13)
[2024-05-15 19:59] LABS: Glucose,Whole Blood 287 mg/dL (70-110)
[2024-05-16 05:50] LABS: Glucose,Whole Blood 164 mg/dL (70-110)
--- NOTE | 2024-05-16 07:58 | XR ---
EXAMINATION TYPE: XR chest 1V portable DATE OF EXAM: 05/16/2024 5:12 AM COMPARISON: 05/13/2024 CLINICAL INDICATION: Male, 59 years old with history of shortness of breath, TECHNIQUE: XR chest 1V portable view(s) obtained. FINDINGS: The heart size is prominent. The pulmonary vasculature is prominent. The lungs are clear. IMPRESSION: 1. Clinical correlation recommended for volume overload or developing congestive heart failure. [facility], , 05/16/2024 7:56 AM
[2024-05-16 08:07] LABS: ALT 40 U/L (4-49); AST 32 U/L (17-59); African American GFR (CKD) 69 (>60 ml/min/1.73 sqM); Albumin 3.7 g/dL (3.5-5.0); Alkaline Phosphatase 93 U/L (38-126); Blood Urea Nitrogen 69 mg/dL (9-20); Calcium 8.2 mg/dL (8.4-10.2); Chloride 80 mmol/L (98-107); Glucose 110 mg/dL (74-99); Magnesium 2.1 mg/dL (1.6-2.3); Non-African American GFR(CKD) 60 (>60 ml/min/1.73 sqM); Potassium 4.1 mmol/L (3.5-5.1); Sodium 139 mmol/L (137-145); Total Protein 6.1 g/dL (6.3-8.2)
[2024-05-16 08:10] LABS: Basophils % (A) 0 %; Eosinophils # (A) 0.1 k/uL (0-0.7); Eosinophils % (A) 1 %; HCT 50.5 % (39.0-53.0); Hypochromasia Slight; Lymphocytes # (A) 0.8 k/uL (1.0-4.8); Lymphocytes % (A) 6 %; MCHC 31.6 g/dL (31.0-37.0); MCV 91.5 fL (80.0-100.0); Mean Platelet Volume 9.9; Monocytes # (A) 0.6 k/uL (0-1.0); Monocytes % (A) 4 %; Neutrophils # (A) 13.6 k/uL (1.3-7.7); Neutrophils % (A) 90 %; Platelet Count 109 k/uL (150-450); Poikilocytosis Slight; RBC 5.51 m/uL (4.30-5.90); RDW 15.9 % (11.5-15.5); WBC 15.2 k/uL (3.8-10.6)
[2024-05-16 09:02] LABS: Anion Gap 5 mmol/L
[2024-05-16 09:04] LABS: Carbon Dioxide 54 mmol/L (22-30)
[2024-05-16 11:52] LABS: Glucose,Whole Blood 184 mg/dL (70-110)
--- NOTE | 2024-05-16 13:10 | P.PN ---
Subjective Progress Note Date: 05/16/24 Principal diagnosis: Acute on chronic hypoxic and hypercapnic respiratory failure, multifactorial This is a 59-year-old male patient who was hospitalized with worsening shortness of breath. The patient was discharged to [facility] on 05/05/2024 after having a prolonged hospitalization during which the patient was treated for right lower extremity wound/abscess with secondary cellulitis that failed outpatient treatment. The patient required debridement and the cultures were positive for MRSA and the patient was sent to [facility] with a course of oral antibiotics including Keflex and doxycycline. Nevertheless, he ended up coming back with worsening shortness of breath. Chest x-ray shows some small bilateral pleural effusion. The patient's chest x-ray was most consistent with CHF. In the emergency, the patient was quite hypercapnic and based on that, the patient was placed on a BiPAP pressure of 12 over 5 cm of water. He is awake and alert and is currently on FiO2 of 50%. No signs of any CO2 narcosis. The white cell count is at 5.7 with a hemoglobin 13.9 and a platelet count of 188. BUN 31 and a creatinine of 1.2. And the patient's sodium levels at 143, serum bicarb is at 35. The patient is currently on DuoNeb nebulized treatments [id number]. The pat ient was started on IV Solu-Medrol suspecting also component of COPD exacerbation. Cardiac enzymes has not been checked. proBNP has not been checked. Lactic acid level currently is at 0.9. Denies having any chest pain. No significant sputum production. Hemodynamically stable. This patient's comorbidities are multiple. The patient has CHF with preserved LV function. Most recent left ventricular ejection fraction has been within normal limits. The patient also has also diabetes mellitus type 2, chronic stage IIIa kidney disease, hypertension, paroxysmal atrial fibrillation and the patient has undergone recent cardioversion on 04/08/2024. He is morbidly obese with a BMI of 47 and is known to have obstructive sleep apnea, noncompliant to CPAP therapy. He has been hospitalized also in the past with signs of fluid overload. He was 22,024, the patient is being seen for a follow-up. on the patient just got transferred to the medical floor. This morning, the patient is currently on 3 days of oxygen by nasal cannula the patient was taken off the BiPAP. Started on diuretics yesterday and the fluid balance has been negative and is producing adequate amount of urine output. BUN is 47 with a creatinine of 0.9. Potassium is at 5.4 with a sodium level of 138. WBC count is 6.7 with a hemoglobin 14.6. Seen by infectious disease. Started on cefepime IV and doxycycline. Repeat wound culture showing gram-negative bacillus. On 05/09/2024, the patient sitting up in a chair and the patient is calm and comfortable. Repeat blood gas was done today and showed a pH of 7.37 with a pCO2 of 69 and pO2 of 68. Follow-up chest x-ray from today shows no acute cardiopulmonary disease and there is cardiomegaly and mild pulm vessel congestion. No labs are available from today. BUN is 47 records of 0.9. Fluid balance is -3.1 L and the patient is headed towards a negative fluid balance. Remains on bronchodilators. Remains on IV Lasix 40 mg every 12 hours. Remains on IV cefepime. He is also on doxycycline. He is also on IV Solu-Medrol 60 mg IV push every 6 hours. Remains on anticoagulation with Eliquis 5 mg p.o. twice a day. Levemir insulin 15 units twice daily plus a sliding scale coverage. 05/10/2024, patient is being seen for a follow-up. He is alternating within the BiPAP and oxygen at 3 L/min nasal cannula. Remains bronchospastic and wheezy. He still producing excellent urine output. BUN 66 with a creatinine of 1.2 and continues to have swelling in lower extremities. Sodium levels at 139. White cell count is at 9.2 with a hemoglobin of 15.1. Antibiotic coverage with doxycycline and ID is on the case. The cultures from the wound showed multidrug-resistant Acinetobacter. Patient was evaluated today on 05/11/2024, presently on BiPAP, intermittently on 3 L nasal cannula, continues to have cough wheezing and shortness of breath, on physical examination he sounded a bit bronchospastic, patient remains on antibiotics/doxycycline as per ID patient had history of multidrug-resistant Acinetobacter. Pulmonary hernandez patient is on proper bronchodilators is also on proper diuretics, and on BiPAP. Being followed by infectious disease for his chronic right lower extremity cellulitis.WBC count is 9.2 electrolytes are normal BUN is 66 creatinine 1.28 BNP level is 3060 Patient was evaluated today on 05/12/2024, complaining again about his multiple issues including chronic shortness of breath and about his lower extremities and ongoing right lower extremity cellulitis and nonhealing ulcers in the right lower extremity. Pulmonary hernandez patient remains on diuretics remains on oxygen remains on BiPAP remains on bronchodilators and steroids. Nonetheless patient continues to have shortness of breath at rest and on exertion labs today were all reviewed blood sugar was noted to be 315 hence I cut down his methylprednisolone to 40 mg IV push every 8 hours. Reevaluate today on 05/13/2024, patient is on BiPAP, quite sleepy, last night had some worsening shortness of breath, I recommended Decadron I also recommended Lasix, chest x-ray was also noted, ABG was noted, actually his workup does not seem to be remarkable and his ABG is expected to be as such. With relatively high pCO2 but he is compensating metabolically well maintaining a pH of 7.32. ABG showed a pO2 of 114 pCO2 85 pH of 7.32 chest x-ray did show minimal pulmonary edema/interstitial pulmonary vascular congestion but he did receive Lasix and he is on diuretics maintenance Reevaluate today on 05/14/2024, patient is sitting at the edge of the bed, on BiPAP, does not seem to be in distress, however he continues to complain of shortness of breath all the time, continues to complain of right-sided foot pain, yesterday patient was evaluated again by the a team and did not feel that the patient needs to be admitted to the ICU. Patient did receive steroids and diuretics, and he seems to be doing fairly well except for his ongoing complaints of being short of breath and having pain. Repeat ABG yesterday showed a pO2 of 104 pCO2 87 pH of 7.35 and that basically about his baseline. FiO2 could be cut down to 35% patient remains on diuretics for chronic diastolic congestive heart failure and he is maximal on bronchodilators Patient was seen today on 05/15/2024, patient is basically about the same. On BiPAP, FiO2, down from 40% to 35% based on his last ABG. Continues to have intermittent episodes of shortness of breath and chronic pain in right lower extremity. Patient remains on bronchodilators antibiotics, diuretics, no major issue or change in the last 24 hours. No labs done today except a blood sugar of 127. Patient was seen today on 05/16/2024, basically about the same, not much has changed over the last few days, remains intermittently on BiPAP, FiO2 down to 35%, patient continues to complain of shortness of breath with any activity, continues to complain of right foot pain. Patient is maximal on bronchodilators, antibiotics, steroids, I do not believe much more can be added, and the patient was made aware of the situation that this is the best he is going to get. Labs today showed WBC count of 15.2 hemoglobin is 16.0 bicarb is 54, BUN is 69 creatinine 1.29 Objective - Vital Signs Vital signs: Vital Signs Temp 98.2 F 05/16/24 08:00 Pulse 84 05/16/24 11:37 Resp 20 05/16/24 08:00 BP 145/81 05/16/24 08:00 Pulse Ox 92 L 05/16/24 08:00 FiO2 35 05/16/24 11:37 Intake & Output 05/15/24 05/16/24 05/16/24 18:59 06:59 18:59 Intake Total 240 120 Output Total 1875 2500 Balance -1635 -2500 120 Weight 153.8 kg Intake: Oral 240 120 Output: Urine 1875 2500 Other: Voiding Method Urinal Urinal Urinal # Voids 1 1 # Bowel Movements 1 - Exam Physical exam: 62-year-old white male morbidly obese on BiPAP 06/04/40, changed FiO2 to 35% HEENT PERRLA, EOMI, nonicteric moist mucous membranes Neck supple. No neck masses no JVD no stridor Cardiovascular: Irregular rhythm and rate. S1-S2 normal. No S3 or S4. No murmur Lungs diminished breath sound bilaterally no crackles rhonchi or wheezes Abdomen obese, soft bowel sounds are heard. No masses or tenderness. Extremities reveal 3+ bilateral lower extremity pitting edema. Blistering cellulitis to right lower extremity wrapped with sterile dressing Skin: As noted above Neurologic: Alert oriented x 3 no gross focal deficit Psychiatric: Normal mood affect and no mental status examination - Labs CBC & Chem 7: 05/16/24 06:43 05/16/24 06:43 Labs: Abnormal Lab Results - Last 24 Hours (Table) 05/15/24 05/15/24 05/16/24 Range/Units 16:07 19:56 05:49 WBC (3.8-10.6) k/uL RDW (11.5-15.5) % Plt Count (150-450) k/uL Neutrophils # (1.3-7.7) k/uL Lymphocytes # (1.0-4.8) k/uL Chloride (98-107) mmol/L Carbon Dioxide (22-30) mmol/L BUN (9-20) mg/dL Creatinine (0.66-1.25) mg/dL Glucose (74-99) mg/dL POC Glucose (mg/dL) 253 H 287 H 164 H (70-110) mg/dL Calcium (8.4-10.2) mg/dL Total Protein (6.3-8.2) g/dL 05/16/24 05/16/24 05/16/24 Range/Units 06:43 06:43 11:50 WBC 15.2 H (3.8-10.6) k/uL RDW 15.9 H (11.5-15.5) % Plt Count 109 L (150-450) k/uL Neutrophils # 13.6 H (1.3-7.7) k/uL Lymphocytes # 0.8 L (1.0-4.8) k/uL Chloride 80 L (98-107) mmol/L Carbon Dioxide 54 H* (22-30) mmol/L BUN 69 H (9-20) mg/dL Creatinine 1.29 H (0.66-1.25) mg/dL Glucose 110 H (74-99) mg/dL POC Glucose (mg/dL) 184 H (70-110) mg/dL Calcium 8.2 L (8.4-10.2) mg/dL Total Protein 6.1 L (6.3-8.2) g/dL Assessment and Plan Assessment: Impression: Acute on chronic hypoxemic, and hypercapnic respiratory failure, secondary to an exacerbation of chronic diastolic congestive heart failure along with a component of COPD exacerbation. Very severe chronic obstructive pulmonary disease, with an FEV1 22% of predicted Obstructive sleep apnea, patient is noncompliant with his noninvasive positive airway pressure machine Morbid obesity, with a BMI of 48.7 kg/m Chronic stage IIIa kidney disease Atrial fibrillation, anticoagulated with Eliquis Chronic lower extremity edema, with multiple venous stasis ulcers, History of hypertension History of hyperlipidemia Former tobacco dependence Severe cellulitis of right lower extremity, s/p debridement, maintained on a combination of doxycycline and Keflex on outpatient basis. Being followed by infectious disease on the case Recommendation: Continue BiPAP, alternate with nasal cannula Continue bronchodilators/DuoNeb Continue prednisone 30 mg daily Continue diuretics Antibiotics as per ID on the case Continue anticoagulation therapy Overall prognosis remains poor and guarded Will continue to follow Time with Patient: Less than 30
[2024-05-16] MEDS: TERBINAFINE 250 MG TAB PO SCH (16:07)
[2024-05-16 16:23] LABS: Glucose,Whole Blood 260 mg/dL (70-110)
[2024-05-16 20:00] LABS: Glucose,Whole Blood 295 mg/dL (70-110)
--- NOTE | 2024-05-17 05:42 | PN ---
PROGRESS NOTE DATE OF SERVICE: 05/16/2024 SUBJECTIVE: This is a 59-year-old gentleman, who was admitted with multiple medical problems including COPD exacerbation, on BiPAP. The patient is being evaluated for possible discharge to ECF at this time. Chest x-ray was reviewed personally by me. The patient is extremely short of breath. PAST MEDICAL HISTORY: Reviewed. REVIEW OF SYSTEMS: Could not be taken. CURRENT MEDICATIONS: Reviewed. PHYSICAL EXAMINATION: VITAL SIGNS: Pulse is 77, blood pressure 147/78, respirations 20. HEENT: Conjunctivae normal. CARDIOVASCULAR: S1, S2. RESPIRATIONS: Bilateral scattered rhonchi and crackles. ABDOMEN: Soft. NERVOUS SYSTEM: Nonfocal. LABORATORY DATA: PO2 is 54. ASSESSMENT: 1. Chronic obstructive pulmonary disease acute exacerbation with acute on chronic hypoxic, hypercarbic respiratory failure, on BiPAP. 2. Acute on chronic congestive heart failure with preserved ejection fraction. 3. Paroxysmal atrial fibrillation. 4. Chronic kidney stage 3. 5. Morbid obesity. 6. Multiple complex medical issues. RECOMMENDATIONS: Recommend to continue with the current management and continue with the bronchodilators. Continue with the rest of medications. Repeat labs. Continue with the BiPAP. Ensure oxygenation and monitor the CO2 closely. Closely follow with multiple consultants including Cardiology, Pulmonology, and possible ECF rehab once the patient is stabilized. MMODL / IJN: [id number] /
[2024-05-17 06:22] LABS: Glucose,Whole Blood 174 mg/dL (70-110)
[2024-05-17 07:15] LABS: African American GFR (CKD) 51 (>60 ml/min/1.73 sqM); Blood Urea Nitrogen 69 mg/dL (9-20); Calcium 8.2 mg/dL (8.4-10.2); Chloride 82 mmol/L (98-107); Glucose 128 mg/dL (74-99); Non-African American GFR(CKD) 45 (>60 ml/min/1.73 sqM); Potassium 4.7 mmol/L (3.5-5.1); Sodium 140 mmol/L (137-145)
[2024-05-17 07:19] LABS: Anisocytosis Slight; Basophils % (A) 0 %; Eosinophils # (A) 0.1 k/uL (0-0.7); Eosinophils % (A) 1 %; HGB 15.6 gm/dL (13.0-17.5); Hypochromasia Moderate; Lymphocytes # (A) 0.8 k/uL (1.0-4.8); Lymphocytes % (A) 5 %; MCH 28.8 pg (25.0-35.0); MCHC 31.3 g/dL (31.0-37.0); MCV 92.1 fL (80.0-100.0); Mean Platelet Volume 10.3; Monocytes # (A) 0.8 k/uL (0-1.0); Monocytes % (A) 5 %; Neutrophils # (A) 14.5 k/uL (1.3-7.7); Neutrophils % (A) 89 %; Platelet Count 100 k/uL (150-450); Poikilocytosis Slight; RBC 5.43 m/uL (4.30-5.90); RDW 16.2 % (11.5-15.5); WBC 16.4 k/uL (3.8-10.6)
[2024-05-17 07:22] LABS: Anion Gap -2 mmol/L
[2024-05-17 07:52] LABS: Carbon Dioxide 60 mmol/L (22-30)
[2024-05-17 11:31] LABS: Glucose,Whole Blood 167 mg/dL (70-110)
[2024-05-17] MEDS: acetaZOLAMIDE 250 MG TAB PO SCH (11:44)
--- NOTE | 2024-05-17 12:04 | P.PN ---
Subjective Progress Note Date: 05/17/24 Principal diagnosis: Acute on chronic hypoxic and hypercapnic respiratory failure, multifactorial This is a 59-year-old male patient who was hospitalized with worsening shortness of breath. The patient was discharged to [facility] on 05/05/2024 after having a prolonged hospitalization during which the patient was treated for right lower extremity wound/abscess with secondary cellulitis that failed outpatient treatment. The patient required debridement and the cultures were positive for MRSA and the patient was sent to [facility] with a course of oral antibiotics including Keflex and doxycycline. Nevertheless, he ended up coming back with worsening shortness of breath. Chest x-ray shows some small bilateral pleural effusion. The patient's chest x-ray was most consistent with CHF. In the emergency, the patient was quite hypercapnic and based on that, the patient was placed on a BiPAP pressure of 12 over 5 cm of water. He is awake and alert and is currently on FiO2 of 50%. No signs of any CO2 narcosis. The white cell count is at 5.7 with a hemoglobin 13.9 and a platelet count of 188. BUN 31 and a creatinine of 1.2. And the patient's sodium levels at 143, serum bicarb is at 35. The patient is currently on DuoNeb nebulized treatments [id number]. The pat ient was started on IV Solu-Medrol suspecting also component of COPD exacerbation. Cardiac enzymes has not been checked. proBNP has not been checked. Lactic acid level currently is at 0.9. Denies having any chest pain. No significant sputum production. Hemodynamically stable. This patient's comorbidities are multiple. The patient has CHF with preserved LV function. Most recent left ventricular ejection fraction has been within normal limits. The patient also has also diabetes mellitus type 2, chronic stage IIIa kidney disease, hypertension, paroxysmal atrial fibrillation and the patient has undergone recent cardioversion on 04/08/2024. He is morbidly obese with a BMI of 47 and is known to have obstructive sleep apnea, noncompliant to CPAP therapy. He has been hospitalized also in the past with signs of fluid overload. He was 22,024, the patient is being seen for a follow-up. on the patient just got transferred to the medical floor. This morning, the patient is currently on 3 days of oxygen by nasal cannula the patient was taken off the BiPAP. Started on diuretics yesterday and the fluid balance has been negative and is producing adequate amount of urine output. BUN is 47 with a creatinine of 0.9. Potassium is at 5.4 with a sodium level of 138. WBC count is 6.7 with a hemoglobin 14.6. Seen by infectious disease. Started on cefepime IV and doxycycline. Repeat wound culture showing gram-negative bacillus. On 05/09/2024, the patient sitting up in a chair and the patient is calm and comfortable. Repeat blood gas was done today and showed a pH of 7.37 with a pCO2 of 69 and pO2 of 68. Follow-up chest x-ray from today shows no acute cardiopulmonary disease and there is cardiomegaly and mild pulm vessel congestion. No labs are available from today. BUN is 47 records of 0.9. Fluid balance is -3.1 L and the patient is headed towards a negative fluid balance. Remains on bronchodilators. Remains on IV Lasix 40 mg every 12 hours. Remains on IV cefepime. He is also on doxycycline. He is also on IV Solu-Medrol 60 mg IV push every 6 hours. Remains on anticoagulation with Eliquis 5 mg p.o. twice a day. Levemir insulin 15 units twice daily plus a sliding scale coverage. 05/10/2024, patient is being seen for a follow-up. He is alternating within the BiPAP and oxygen at 3 L/min nasal cannula. Remains bronchospastic and wheezy. He still producing excellent urine output. BUN 66 with a creatinine of 1.2 and continues to have swelling in lower extremities. Sodium levels at 139. White cell count is at 9.2 with a hemoglobin of 15.1. Antibiotic coverage with doxycycline and ID is on the case. The cultures from the wound showed multidrug-resistant Acinetobacter. Patient was evaluated today on 05/11/2024, presently on BiPAP, intermittently on 3 L nasal cannula, continues to have cough wheezing and shortness of breath, on physical examination he sounded a bit bronchospastic, patient remains on antibiotics/doxycycline as per ID patient had history of multidrug-resistant Acinetobacter. Pulmonary hernandez patient is on proper bronchodilators is also on proper diuretics, and on BiPAP. Being followed by infectious disease for his chronic right lower extremity cellulitis.WBC count is 9.2 electrolytes are normal BUN is 66 creatinine 1.28 BNP level is 3060 Patient was evaluated today on 05/12/2024, complaining again about his multiple issues including chronic shortness of breath and about his lower extremities and ongoing right lower extremity cellulitis and nonhealing ulcers in the right lower extremity. Pulmonary hernandez patient remains on diuretics remains on oxygen remains on BiPAP remains on bronchodilators and steroids. Nonetheless patient continues to have shortness of breath at rest and on exertion labs today were all reviewed blood sugar was noted to be 315 hence I cut down his methylprednisolone to 40 mg IV push every 8 hours. Reevaluate today on 05/13/2024, patient is on BiPAP, quite sleepy, last night had some worsening shortness of breath, I recommended Decadron I also recommended Lasix, chest x-ray was also noted, ABG was noted, actually his workup does not seem to be remarkable and his ABG is expected to be as such. With relatively high pCO2 but he is compensating metabolically well maintaining a pH of 7.32. ABG showed a pO2 of 114 pCO2 85 pH of 7.32 chest x-ray did show minimal pulmonary edema/interstitial pulmonary vascular congestion but he did receive Lasix and he is on diuretics maintenance Reevaluate today on 05/14/2024, patient is sitting at the edge of the bed, on BiPAP, does not seem to be in distress, however he continues to complain of shortness of breath all the time, continues to complain of right-sided foot pain, yesterday patient was evaluated again by the a team and did not feel that the patient needs to be admitted to the ICU. Patient did receive steroids and diuretics, and he seems to be doing fairly well except for his ongoing complaints of being short of breath and having pain. Repeat ABG yesterday showed a pO2 of 104 pCO2 87 pH of 7.35 and that basically about his baseline. FiO2 could be cut down to 35% patient remains on diuretics for chronic diastolic congestive heart failure and he is maximal on bronchodilators Patient was seen today on 05/15/2024, patient is basically about the same. On BiPAP, FiO2, down from 40% to 35% based on his last ABG. Continues to have intermittent episodes of shortness of breath and chronic pain in right lower extremity. Patient remains on bronchodilators antibiotics, diuretics, no major issue or change in the last 24 hours. No labs done today except a blood sugar of 127. Patient was seen today on 05/16/2024, basically about the same, not much has changed over the last few days, remains intermittently on BiPAP, FiO2 down to 35%, patient continues to complain of shortness of breath with any activity, continues to complain of right foot pain. Patient is maximal on bronchodilators, antibiotics, steroids, I do not believe much more can be added, and the patient was made aware of the situation that this is the best he is going to get. Labs today showed WBC count of 15.2 hemoglobin is 16.0 bicarb is 54, BUN is 69 creatinine 1.29 Patient was evaluated for, continues to have shortness of breath with any activity, occasional cough, patient is intermittently on BiPAP alternating with nasal cannula. Not much of a change in the last 24 hours, considering his bicarb is getting worse, I am recommending that we replace one of the doses of Lasix with Diamox.WBC 16.4 hemoglobin 15.6 electrolytes are normal except for bicarb of 60 BUN is 69 creatinine 1.64 Objective - Vital Signs Vital signs: Vital Signs Temp 97.9 F 05/17/24 08:00 Pulse 92 05/17/24 12:01 Resp 18 05/17/24 08:00 BP 121/74 05/17/24 08:00 Pulse Ox 91 L 05/17/24 08:00 FiO2 35 05/17/24 11:50 Intake & Output 05/16/24 05/17/24 05/17/24 18:59 06:59 18:59 Intake Total 360 Output Total 200 1900 600 Balance 160 -1900 -600 Weight 154.7 kg Intake: Oral 360 Output: Urine 200 1900 600 Other: Voiding Method Urinal Urinal Urinal - Exam Physical exam: 62-year-old white male morbidly obese on 5 L nasal cannula, and more often on BiPAP 06/04/35% HEENT PERRLA, EOMI, nonicteric moist mucous membranes Neck supple. No neck masses no JVD no stridor Cardiovascular: Irregular rhythm and rate. S1-S2 normal. No S3 or S4. No murmur Lungs diminished breath sound bilaterally no crackles rhonchi or wheezes Abdomen obese, soft bowel sounds are heard. No masses or tenderness. Extremities reveal 3+ bilateral lower extremity pitting edema. Blistering cellulitis to right lower extremity wrapped with sterile dressing Skin: As noted above Neurologic: Alert oriented x 3 no gross focal deficit Psychiatric: Normal mood affect and no mental status examination - Labs CBC & Chem 7: 05/17/24 05:56 05/17/24 05:56 Labs: Abnormal Lab Results - Last 24 Hours (Table) 05/16/24 05/16/24 05/17/24 Range/Units 16:22 19:58 05:56 WBC 16.4 H (3.8-10.6) k/uL RDW 16.2 H (11.5-15.5) % Plt Count 100 L (150-450) k/uL Neutrophils # 14.5 H (1.3-7.7) k/uL Lymphocytes # 0.8 L (1.0-4.8) k/uL Chloride (98-107) mmol/L Carbon Dioxide (22-30) mmol/L BUN (9-20) mg/dL Creatinine (0.66-1.25) mg/dL Glucose (74-99) mg/dL POC Glucose (mg/dL) 260 H 295 H (70-110) mg/dL Calcium (8.4-10.2) mg/dL 05/17/24 05/17/24 05/17/24 Range/Units 05:56 06:21 11:28 WBC (3.8-10.6) k/uL RDW (11.5-15.5) % Plt Count (150-450) k/uL Neutrophils # (1.3-7.7) k/uL Lymphocytes # (1.0-4.8) k/uL Chloride 82 L (98-107) mmol/L Carbon Dioxide 60 H* (22-30) mmol/L BUN 69 H (9-20) mg/dL Creatinine 1.64 H (0.66-1.25) mg/dL Glucose 128 H (74-99) mg/dL POC Glucose (mg/dL) 174 H 167 H (70-110) mg/dL Calcium 8.2 L (8.4-10.2) mg/dL Assessment and Plan Assessment: Impression: Acute on chronic hypoxemic, and hypercapnic respiratory failure, secondary to an exacerbation of chronic diastolic congestive heart failure along with a component of COPD exacerbation. Very severe chronic obstructive pulmonary disease, with an FEV1 22% of predicted Obstructive sleep apnea, patient is noncompliant with his noninvasive positive airway pressure machine Morbid obesity, with a BMI of 48.7 kg/m Chronic stage IIIa kidney disease Atrial fibrillation, anticoagulated with Eliquis Chronic lower extremity edema, with multiple venous stasis ulcers, History of hypertension History of hyperlipidemia Former tobacco dependence Severe cellulitis of right lower extremity, s/p debridement, maintained on a combination of doxycycline and Keflex on outpatient basis. Being followed by infectious disease on the case Recommendation: Continue BiPAP, alternate with nasal cannula Continue bronchodilators/DuoNeb Continue prednisone 30 mg daily Continue diuretics however Diamox was added to 50 mg p.o. daily Antibiotics as per ID on the case Continue anticoagulation therapy Overall prognosis remains poor and guarded Will continue to follow Time with Patient: Less than 30
--- NOTE | 2024-05-17 15:47 | P.PN ---
Subjective Progress Note Date: 05/16/24 Principal diagnosis: Reason for follow-up is right lower extremity wound and cellulitis Patient is a 59-year-old male with a past medical history significant for hypertension hyperlipidemia COPD heart failure with asthma atrial fibrillation recently admitted to the hospital with the patient did have right lower extremity infected hematoma presenting back to the hospital for worsening shortness of breath. On today's evaluation that is 05/16/2024, Patient is afebrile this morning patient denies having any chest pain continue complain of shortness of breath but no worsening cough, the patient is currently on room air, patient denies any abdominal pain no diarrhea no nausea no vomiting, mention pain to the leg has decreased family at the bedside that have been concerned about his bilateral feet toe fungal infection with the patient has for couple of months. Patient white count is 15.2, creat is 1.29, chest x-ray volume overload or developing congestive heart failure Objective - Vital Signs Vital signs: Vital Signs Temp 98.2 F 05/16/24 08:00 Pulse 84 05/16/24 11:37 Resp 20 05/16/24 08:00 BP 145/81 05/16/24 08:00 Pulse Ox 92 L 05/16/24 08:00 FiO2 35 05/16/24 11:37 Intake & Output 05/15/24 05/16/24 05/16/24 18:59 06:59 18:59 Intake Total 240 120 Output Total 1875 2500 Balance -1635 -2500 120 Weight 153.8 kg Intake: Oral 240 120 Output: Urine 1875 2500 Other: Voiding Method Urinal Urinal Urinal # Voids 1 1 # Bowel Movements 1 - Exam GENERAL DESCRIPTION: Middle-age male lying in bed in no distress RESPIRATORY SYSTEM: Unlabored breathing , decreased breath sounds at bases HEART: S1 S2 regular rate and rhythm , ABDOMEN: Soft , no tenderness EXTREMITIES: Right leg wound currently dressed no drainage - Labs CBC & Chem 7: 05/17/24 05:56 05/17/24 05:56 Labs: Abnormal Lab Results - Last 24 Hours (Table) 05/15/24 05/15/24 05/16/24 Range/Units 16:07 19:56 05:49 WBC (3.8-10.6) k/uL RDW (11.5-15.5) % Plt Count (150-450) k/uL Neutrophils # (1.3-7.7) k/uL Lymphocytes # (1.0-4.8) k/uL Chloride (98-107) mmol/L Carbon Dioxide (22-30) mmol/L BUN (9-20) mg/dL Creatinine (0.66-1.25) mg/dL Glucose (74-99) mg/dL POC Glucose (mg/dL) 253 H 287 H 164 H (70-110) mg/dL Calcium (8.4-10.2) mg/dL Total Protein (6.3-8.2) g/dL 05/16/24 05/16/24 05/16/24 Range/Units 06:43 06:43 11:50 WBC 15.2 H (3.8-10.6) k/uL RDW 15.9 H (11.5-15.5) % Plt Count 109 L (150-450) k/uL Neutrophils # 13.6 H (1.3-7.7) k/uL Lymphocytes # 0.8 L (1.0-4.8) k/uL Chloride 80 L (98-107) mmol/L Carbon Dioxide 54 H* (22-30) mmol/L BUN 69 H (9-20) mg/dL Creatinine 1.29 H (0.66-1.25) mg/dL Glucose 110 H (74-99) mg/dL POC Glucose (mg/dL) 184 H (70-110) mg/dL Calcium 8.2 L (8.4-10.2) mg/dL Total Protein 6.1 L (6.3-8.2) g/dL Assessment and Plan (1) Wound of right lower extremity Current Visit: Yes Status: Acute Code(s): S81.801A - UNSPECIFIED OPEN WOUND, RIGHT LOWER LEG, INITIAL ENCOUNTER SNOMED Code(s): 18721509909892607 (2) Cellulitis of right lower extremity Current Visit: No Status: Acute Code(s): L03.115 - CELLULITIS OF RIGHT LOWER LIMB SNOMED Code(s): 44424620353308596 (3) Onychomycosis due to dermatophyte Current Visit: Yes Status: Acute Code(s): B35.1 - TINEA UNGUIUM SNOMED Code(s): 450795909 Plan: 1patient presented to hospital with increasing shortness of breath possible related underlying cardiopulmonary condition clinically not behaving as pneumonia with no fever or elevated white count. Pulmonary has been consulted for further management 2patient with a recent right lower extremity infected hematoma s/p drainage with a wound with developed deep wound with slough tissue and no significant surrounding redness 3-patient local culture did grew drug-resistant Acinetobacter possible col onizer as the patient not running any fever white count is normal and there was no evidence of any redness or warmth 4patient to continue-local wound care to the right lower extremity wound with the dry Aquacel silver dressing and oral doxycycline 5-did have extensive bilateral feet toe fungal infection we will add Lamisil and see response Dictation was produced using [employer] dictation software. please excuse any grammatical, word or spelling errors. Time with Patient: Less than 30
--- NOTE | 2024-05-17 15:49 | P.PN ---
Subjective Progress Note Date: 05/17/24 Principal diagnosis: Reason for follow-up is right lower extremity wound and cellulitis Patient is a 59-year-old male with a past medical history significant for hypertension hyperlipidemia COPD heart failure with asthma atrial fibrillation recently admitted to the hospital with the patient did have right lower extremity infected hematoma presenting back to the hospital for worsening shortness of breath. On today's evaluation that is 05/17/2024,the patient denies any fever or any chills, patient is complaining of shortness of breath after he is off the BiPAP denies any chest pain or worsening cough no nausea vomiting abdominal pain pain to the right lower extremity has slightly decreased intensity. Patient white count is up to 16.4, creatinine is 1.64 Objective - Vital Signs Vital signs: Vital Signs Temp 97.9 F 05/17/24 12:00 Pulse 94 05/17/24 14:00 Resp 18 05/17/24 14:00 BP 107/71 05/17/24 12:00 Pulse Ox 96 05/17/24 12:00 FiO2 35 05/17/24 11:50 Intake & Output 05/16/24 05/17/24 05/17/24 18:59 06:59 18:59 Intake Total 360 476 Output Total 200 1900 1450 Balance 160 -1900 -974 Weight 154.7 kg Intake: Oral 360 476 Output: Urine 200 1900 1450 Other: Voiding Method Urinal Urinal Urinal - Exam GENERAL DESCRIPTION: Middle-age male lying in bed in no distress RESPIRATORY SYSTEM: Unlabored breathing , decreased breath sounds at bases HEART: S1 S2 regular rate and rhythm , ABDOMEN: Soft , no tenderness EXTREMITIES: Right leg wound currently dressed no drainage - Labs CBC & Chem 7: 05/17/24 05:56 05/17/24 05:56 Labs: Abnormal Lab Results - Last 24 Hours (Table) 05/16/24 05/16/24 05/17/24 Range/Units 16:22 19:58 05:56 WBC 16.4 H (3.8-10.6) k/uL RDW 16.2 H (11.5-15.5) % Plt Count 100 L (150-450) k/uL Neutrophils # 14.5 H (1.3-7.7) k/uL Lymphocytes # 0.8 L (1.0-4.8) k/uL Chloride (98-107) mmol/L Carbon Dioxide (22-30) mmol/L BUN (9-20) mg/dL Creatinine (0.66-1.25) mg/dL Glucose (74-99) mg/dL POC Glucose (mg/dL) 260 H 295 H (70-110) mg/dL Calcium (8.4-10.2) mg/dL 05/17/24 05/17/24 05/17/24 Range/Units 05:56 06:21 11:28 WBC (3.8-10.6) k/uL RDW (11.5-15.5) % Plt Count (150-450) k/uL Neutrophils # (1.3-7.7) k/uL Lymphocytes # (1.0-4.8) k/uL Chloride 82 L (98-107) mmol/L Carbon Dioxide 60 H* (22-30) mmol/L BUN 69 H (9-20) mg/dL Creatinine 1.64 H (0.66-1.25) mg/dL Glucose 128 H (74-99) mg/dL POC Glucose (mg/dL) 174 H 167 H (70-110) mg/dL Calcium 8.2 L (8.4-10.2) mg/dL Assessment and Plan (1) Wound of right lower extremity Current Visit: Yes Status: Acute Code(s): S81.801A - UNSPECIFIED OPEN WOUND, RIGHT LOWER LEG, INITIAL ENCOUNTER SNOMED Code(s): 74507609351231724 (2) Cellulitis of right lower extremity Current Visit: No Status: Acute Code(s): L03.115 - CELLULITIS OF RIGHT LOWER LIMB SNOMED Code(s): 99577553806203268 (3) Onychomycosis due to dermatophyte Current Visit: Yes Status: Acute Code(s): B35.1 - TINEA UNGUIUM SNOMED C ode(s): 876145809 (4) Leukocytosis Current Visit: No Status: Acute Code(s): D72.829 - ELEVATED WHITE BLOOD CELL COUNT, UNSPECIFIED SNOMED Code(s): 792026242 Plan: 1patient presented to hospital with increasing shortness of breath possible related underlying cardiopulmonary condition clinically not behaving as pneumonia with no fever or elevated white count. Pulmonary has been consulted for further management 2patient with a recent right lower extremity infected hematoma s/p drainage with a wound with developed deep wound with slough tissue and no significant surrounding redness 3-patient local culture did grew drug-resistant Acinetobacter possible colonizer as the patient not running any fever white count is normal and there was no evidence of any redness or warmth 4patient to continue-local wound care to the right lower extremity wound with the dry Aquacel silver dressing and oral doxycycline 5-did have extensive bilateral feet toe fungal infection for the patient to continue with Lamisil we will watch his LFT closely 6worsening white count possible oropharyngeal candidiasis will add nystatin swish and swallow repeat CBC inflammatory markers with a.m. lab Dictation was produced using [employer] dictation software. please excuse any grammatical, word or spelling errors. Time with Patient: Less than 30
[2024-05-17 16:26] LABS: Glucose,Whole Blood 310 mg/dL (70-110)
[2024-05-17] MEDS: NYSTATIN 100,000 UNIT/ML SUSP 500,000 UNIT/5 ML CUP PO SCH (17:30)
[2024-05-17 20:11] LABS: Glucose,Whole Blood 197 mg/dL (70-110)
--- NOTE | 2024-05-18 04:54 | PN ---
PROGRESS NOTE DATE OF SERVICE: 05/17/2024 SUBJECTIVE: This is a 59-year-old gentleman, admitted with COPD with acute exacerbation, who was also on BiPAP. The ECF, was concerned about the pulse ox of 87, but currently, it is 96%. The patient has some difficulty breathing on nasal cannula. PHYSICAL EXAMINATION: VITAL SIGNS: Pulse is 92, blood pressure ntd, respirations 18. CHEST: Few scattered rhonchi and crackles. ABDOMEN: Soft. NERVOUS SYSTEM: Nonfocal. LABORATORY DATA: Reviewed. ASSESSMENT: 1. Chronic obstructive pulmonary disease with acute exacerbation; acute on chronic hypoxic hypercarbic respiratory failure, on BiPAP, intermittent. 2. Acute on chronic congestive heart failure with preserved ejection fraction. 3. Paroxysmal atrial fibrillation. 4. Chronic kidney disease, stage 3. 5. Morbid obesity. 6. Multiple medical issues. RECOMMENDATIONS: Recommend to continue with the current management. Repeat labs. Otherwise, closely follow with Pulmonary. PT and OT evaluation, and possible ECF rehab. Prognosis guarded. Further recommendations to follow. MMODL / IJN: [id number] / MTDD
[2024-05-18 06:12] LABS: Glucose,Whole Blood 177 mg/dL (70-110)
[2024-05-18 07:11] LABS: Basophils % (A) 0 %; Eosinophils # (A) 0.2 k/uL (0-0.7); Eosinophils % (A) 1 %; HCT 50.6 % (39.0-53.0); HGB 15.5 gm/dL (13.0-17.5); Hypochromasia Marked; Lymphocytes # (A) 0.7 k/uL (1.0-4.8); Lymphocytes % (A) 7 %; MCH 28.9 pg (25.0-35.0); MCHC 30.6 g/dL (31.0-37.0); MCV 94.2 fL (80.0-100.0); Monocytes # (A) 0.5 k/uL (0-1.0); Monocytes % (A) 5 %; Neutrophils # (A) 9.1 k/uL (1.3-7.7); Neutrophils % (A) 86 %; RBC 5.37 m/uL (4.30-5.90); RDW 15.8 % (11.5-15.5); WBC 10.7 k/uL (3.8-10.6)
[2024-05-18 07:19] LABS: African American GFR (CKD) 47 (>60 ml/min/1.73 sqM); Blood Urea Nitrogen 59 mg/dL (9-20); Calcium 8.1 mg/dL (8.4-10.2); Chloride 81 mmol/L (98-107); Glucose 164 mg/dL (74-99); Non-African American GFR(CKD) 41 (>60 ml/min/1.73 sqM); Potassium 4.1 mmol/L (3.5-5.1); Sodium 137 mmol/L (137-145)
[2024-05-18 07:26] LABS: Anion Gap 3 mmol/L
[2024-05-18 08:07] LABS: Carbon Dioxide 53 mmol/L (22-30)
[2024-05-18 08:11] LABS: Platelet Count 81 k/uL (150-450)
[2024-05-18] MEDS: FUROSEMIDE 10 MG/ML 4 ML VIAL IV SCH (08:37)
[2024-05-18 10:33] LABS: C Reactive Protein 1.5 mg/dL (<1.0)
--- NOTE | 2024-05-18 11:34 | P.PN ---
Subjective Progress Note Date: 05/18/24 Principal diagnosis: Reason for follow-up is right lower extremity wound and cellulitis Patient is a 59-year-old male with a past medical history significant for hypertension hyperlipidemia COPD heart failure with asthma atrial fibrillation recently admitted to the hospital with the patient did have right lower extremity infected hematoma presenting back to the hospital for worsening shortness of breath. On today's evaluation that is 05/18/2024,the patient remains to be afebrile, patient is on BiPAP still complaining of hard to breathe no chest pain no significant cough no abdominal pain no pain to the right Lower extremity no diarrhea reported. The patient white count is 10.7, creatinine is 1.76 procalcitonin 0.14 Objective - Vital Signs Vital signs: Vital Signs Temp 97.6 F 05/18/24 08:28 Pulse 64 05/18/24 11:23 Resp 18 05/18/24 08:28 BP 101/62 05/18/24 08:28 Pulse Ox 99 05/18/24 08:28 FiO2 35 05/18/24 11:23 Intake & Output 05/17/24 05/18/24 05/18/24 18:59 06:59 18:59 Intake Total 698 120 Output Total 2075 850 1200 Balance -1377 -850 -6075 Weight 154.6 kg Intake: Oral 698 120 Output: Urine 5 850 1200 Other: Voiding Method Urinal Urinal Urinal # Bowel Movements 0 - Exam GENERAL DESCRIPTION: Middle-age male lying in bed in no distress RESPIRATORY SYSTEM: Unlabored breathing , decreased breath sounds at bases HEART: S1 S2 regular rate and rhythm , ABDOMEN: Soft , no tenderness EXTREMITIES: Right leg wound currently dressed no drainage - Labs CBC & Chem 7: 05/18/24 06:21 05/18/24 06:21 Labs: Abnormal Lab Results - Last 24 Hours (Table) 05/17/24 05/17/24 05/18/24 Range/Units 16:24 20:08 06:10 WBC (3.8-10.6) k/uL MCHC (31.0-37.0) g/dL RDW (11.5-15.5) % Plt Count (150-450) k/uL Neutrophils # (1.3-7.7) k/uL Lymphocytes # (1.0-4.8) k/uL Chloride (98-107) mmol/L Carbon Dioxide (22-30) mmol/L BUN (9-20) mg/dL Creatinine (0.66-1.25) mg/dL Glucose (74-99) mg/dL POC Glucose (mg/dL) 310 H 197 H 177 H (70-110) mg/dL Calcium (8.4-10.2) mg/dL C-Reactive Protein (<1.0) mg/dL 05/18/24 05/18/24 Range/Units 06:21 06:21 WBC 10.7 H (3.8-10.6) k/uL MCHC 30.6 L (31.0-37.0) g/dL RDW 15.8 H (11.5-15.5) % Plt Count 81 L (150-450) k/uL Neutrophils # 9.1 H (1.3-7.7) k/uL Lymphocytes # 0.7 L (1.0-4.8) k/uL Chloride 81 L (98-107) mmol/L Carbon Dioxide 53 H* (22-30) mmol/L BUN 59 H (9-20) mg/dL Creatinine 1.76 H (0.66-1.25) mg/dL Glucose 164 H (74-99) mg/dL POC Glucose (mg/dL) (70-110) mg/dL Calcium 8.1 L (8.4-10.2) mg/dL C-Reactive Protein 1.5 H (<1.0) mg/dL Assessment and Plan (1) Wound of right lower extremity Current Visit: Yes Status: Acute Code(s): S81.801A - UNSPECIFIED OPEN WOUND, RIGHT LOWER LEG, INITIAL ENCOUNTER SNOMED Code(s): 68110165444402797 (2) Cellulitis of right lower extremity Current Visit: No Status: Acute Code(s): L03.115 - CELLULITIS OF RIGHT LOWER LIMB SNOMED Code(s): 33148047133467547 (3) Onychomycosis due to dermatophyte Current Visit: Yes Status: Acute Code(s): B35.1 - TINEA UNGUIUM SNOMED Code(s): 626085322 (4) Leukocytosis Current Visit: No Status: Acute Code(s): D72.829 - ELEVATED WHITE BLOOD CELL COUNT, UNSPECIFIED SNOMED Code(s): 222148718 Plan: 1patient presented to hospital with increasing shortness of breath possible related underlying cardiopulmonary condition clinically not behaving as pneumonia with no fever or elevated white count. Pulmonary has been consulted for further management 2patient with a recent right lower extremity infected hematoma s/p drainage with a wound with developed deep wound with slough tissue and no significant surrounding redness 3-patient local culture did grew drug-resistant Acinetobacter possible colonizer as the patient not running any fever white count is normal and there was no evidence of any redness or warmth 4patient to continue-local wound care to the right lower extremity wound with the dry Aquacel silver dressing and oral doxycycline x 7 days on discharge 5-the patient did have extensive bilateral feet toe fungal infection for the patient to continue with Lamisil x 6 weeks on discharge 6worsening white count possible oropharyngeal candidiasis, the patient white count has normalized continue with nystatin swish and swallow x 7 days on discharge, patient did have normal procalcitonin this morning Dictation was produced using [employer] dictation software. please excuse any grammatical, word or spelling errors. Time with Patient: Less than 30
[2024-05-18 11:44] LABS: Glucose,Whole Blood 205 mg/dL (70-110)
--- NOTE | 2024-05-18 12:46 | P.PN ---
Subjective Progress Note Date: 05/18/24 Principal diagnosis: Shortness of breath. This is a 59-year-old male patient who was hospitalized with worsening shortness of breath. The patient was discharged to [facility] on 05/05/2024 after having a prolonged hospitalization during which the patient was treated for right lower extremity wound/abscess with secondary cellulitis that failed outpatient treatment. The patient required debridement and the cultures were positive for MRSA and the patient was sent to [facility] with a course of oral antibiotics including Keflex and doxycycline. Nevertheless, he ended up coming back with worsening shortness of breath. Chest x-ray shows some small bilateral pleural effusion. The patient's chest x-ray was most consistent with CHF. In the emergency, the patient was quite hypercapnic and based on that, the patient was placed on a BiPAP pressure of 12 over 5 cm of water. He is awake and alert and is currently on FiO2 of 50%. No signs of any CO2 narcosis. The white cell count is at 5.7 with a hemoglobin 13.9 and a platelet count of 188. BUN 31 and a creatinine of 1.2. And the patient's sodium levels at 143, serum bicarb is at 35. The patient is currently on DuoNeb nebulized treatments [id number]. The patient was started on IV Solu-Medrol suspecting also component of COPD exacerbation. Cardiac enzymes has not been checked. proBNP has not been checked. Lactic acid level currently is at 0.9. Denies having any chest pain. No significant sputum production. Hemodynamically stable. This patient's comorbidities are multiple. The patient has CHF with preserved LV function. Most recent left ventricular ejection fraction has been within normal limits. The patient also has also diabetes mellitus type 2, chronic stage IIIa kidney disease, hypertension, paroxysmal atrial fibrillation and the patient has undergone recent cardioversion on 04/08/2024. He is morbidly obese with a BMI of 47 and is known to have obstructive sleep apnea, noncompliant to CPAP therapy. He has been hospitalized also in the past with signs of fluid overload. He was 22,024, the patient is being seen for a follow-up. on the patient just got transferred to the medical floor. This morning, the patient is currently on 3 days of oxygen by nasal cannula the patient was taken off the BiPAP. Started on diuretics yesterday and the fluid balance has been negative and is producing adequate amount of urine output. BUN is 47 with a creatinine of 0.9. Potassium is at 5.4 with a sodium level of 138. WBC count is 6.7 with a hemoglobin 14.6. Seen by infectious disease. Started on cefepime IV and doxycycline. Repeat wound culture showing gram-negative bacillus. On 05/09/2024, the patient sitting up in a chair and the patient is calm and comfortable. Repeat blood gas was done today and showed a pH of 7.37 with a pCO2 of 69 and pO2 of 68. Follow-up chest x-ray from today shows no acute cardiopulmonary disease and there is cardiomegaly and mild pulm vessel congestion. No labs are available from today. BUN is 47 records of 0.9. Fluid balance is -3.1 L and the patient is headed towards a negative fluid balance. Remains on bronchodilators. Remains on IV Lasix 40 mg every 12 hours. Remains on IV cefepime. He is also on doxycycline. He is also on IV Solu-Medrol 60 mg IV push every 6 hours. Remains on anticoagulation with Eliquis 5 mg p.o. twice a day. Levemir insulin 15 units twice daily plus a sliding scale coverage. 05/10/2024, patient is being seen for a follow-up. He is alternating within the BiPAP and oxygen at 3 L/min nasal cannula. Remains bronchospastic and wheezy. He still producing excellent urine output. BUN 66 with a creatinine of 1.2 and continues to have swelling in lower extremities. Sodium levels at 139. White cell count is at 9.2 with a hemoglobin of 15.1. Antibiotic coverage with doxycycline and ID is on the case. The cultures from the wound showed multidrug-resistant Acinetobacter. Patient was evaluated today on 05/11/2024, presently on BiPAP, intermittently on 3 L nasal cannula, continues to have cough wheezing and shortness of breath, on physical examination he sounded a bit bronchospastic, patient remains on antibiotics/doxycycline as per ID patient had history of multidrug-resistant Acinetobacter. Pulmonary hernanedz patient is on proper bronchodilators is also on proper diuretics, and on BiPAP. Being followed by infectious disease for his chronic right lower extremity cellulitis.WBC count is 9.2 electrolytes are normal BUN is 66 creatinine 1.28 BNP level is 3060 Patient was evaluated today on 05/12/2024, complaining again about his multiple issues including chronic shortness of breath and about his lower extremities and ongoing right lower extremity cellulitis and nonhealing ulcers in the right l ower extremity. Pulmonary hernandez patient remains on diuretics remains on oxygen remains on BiPAP remains on bronchodilators and steroids. Nonetheless patient continues to have shortness of breath at rest and on exertion labs today were all reviewed blood sugar was noted to be 315 hence I cut down his methylprednisolone to 40 mg IV push every 8 hours. Reevaluate today on 05/13/2024, patient is on BiPAP, quite sleepy, last night had some worsening shortness of breath, I recommended Decadron I also recommended Lasix, chest x-ray was also noted, ABG was noted, actually his workup does not seem to be remarkable and his ABG is expected to be as such. With relatively high pCO2 but he is compensating metabolically well maintaining a pH of 7.32. ABG showed a pO2 of 114 pCO2 85 pH of 7.32 chest x-ray did show minimal pulmonary edema/interstitial pulmonary vascular congestion but he did receive Lasix and he is on diuretics maintenance Reevaluate today on 05/14/2024, patient is sitting at the edge of the bed, on BiPAP, does not seem to be in distress, however he continues to complain of shor tness of breath all the time, continues to complain of right-sided foot pain, yesterday patient was evaluated again by the a team and did not feel that the patient needs to be admitted to the ICU. Patient did receive steroids and diuretics, and he seems to be doing fairly well except for his ongoing complaints of being short of breath and having pain. Repeat ABG yesterday showed a pO2 of 104 pCO2 87 pH of 7.35 and that basically about his baseline. FiO2 could be cut down to 35% patient remains on diuretics for chronic diastolic congestive heart failure and he is maximal on bronchodilators Patient was seen today on 05/15/2024, patient is basically about the same. On BiPAP, FiO2, down from 40% to 35% based on his last ABG. Continues to have intermittent episodes of shortness of breath and chronic pain in right lower extremity. Patient remains on bronchodilators antibiotics, diuretics, no major issue or change in the last 24 hours. No labs done today except a blood sugar of 127. Patient was seen today on 05/16/2024, basically about the same, not much has changed over the last few days, remains intermittently on BiPAP, FiO2 down to 35%, patient continues to complain of shortness of breath with any activity, continues to complain of right foot pain. Patient is maximal on bro nchodilators, antibiotics, steroids, I do not believe much more can be added, and the patient was made aware of the situation that this is the best he is going to get. Labs today showed WBC count of 15.2 hemoglobin is 16.0 bicarb is 54, BUN is 69 creatinine 1.29 Patient was evaluated for, continues to have shortness of breath with any activity, occasional cough, patient is intermittently on BiPAP alternating with nasal cannula. Not much of a change in the last 24 hours, considering his bicarb is getting worse, I am recommending that we replace one of the doses of Lasix with Diamox.WBC 16.4 hemoglobin 15.6 electrolytes are normal except for bicarb of 60 BUN is 69 creatinine 1.64 Progress note dated May 18, 2024. 59-year-old male with a history of acute on chronic respiratory failure. The patient is currently on BiPAP, with settings of 12/5, 35%. In addition he wears nasal cannula at 3 L. No IV fluids. The patient is chronically lethargic, and somnolent. This is because of his chronic respiratory failure. Current laboratory includes a white count 10.7, hemoglobin 15.5, hematocrit 50.6, and platelet count 81,000. Sodium 137, potassium 4.1, chlorides 81, CO2 53, BUN 59, creatinine 1.76. Glucose is 205. Calcium is 8.1. C-reactive protein 1.5, and procalcitonin level was normal at 0.14. Wound cultures were apparently positive for Acinetobacter. No recent chest x-ray. Objective - Vital Signs Vital signs: Vital Signs Temp 97.5 F L 05/18/24 11:40 Pulse 64 05/18/24 11:42 Resp 21 05/18/24 11:43 BP 100/58 05/18/24 11:40 Pulse Ox 94 L 05/18/24 11:43 FiO2 35 05/18/24 11:43 Intake & Output 05/17/24 05/18/24 05/18/24 18:59 06:59 18:59 Intake Total 698 120 Output Total 2070 816 1200 Balance -9224 -688 -8791 Weight 154.6 kg Intake: Oral 698 120 Output: Urine 2074 569 1200 Other: Voiding Method Urinal Urinal Urinal # Bowel Movements 0 - Exam No acute distress, lethargic, but does arouse. Sitting at the side of the bed. BiPAP mask in place. HEENT examination is grossly unremarkable. Neck supple. Full range of motion. No adenopathy thyromegaly or neck vein distention. Cardiovascular examination reveals regular rhythm rate. S1-S2 normal. No S3 or S4. No discernible murmur noted. Lungs reveal fairly diminished breath sounds. Scattered rhonchi. No wheezes. Breath sounds equal but diminished. Abdomen is obese, without masses. Extremities are intact. No cyanosis clubbing or significant edema. Skin is without rash or lesion. Neurologic examination is brief but nonfocal. - Labs CBC & Chem 7: 05/18/24 06:21 05/18/24 06:21 Labs: Abnormal Lab Results - Last 24 Hours (Table) 05/17/24 05/17/24 05/18/24 Range/Units 16:24 20:08 06:10 WBC (3.8-10.6) k/uL MCHC (31.0-37.0) g/dL RDW (11.5-15.5) % Plt Count (150-450) k/uL Neutrophils # (1.3-7.7) k/uL Lymphocytes # (1.0-4.8) k/uL Chloride (98-107) mmol/L Carbon Dioxide (22-30) mmol/L BUN (9-20) mg/dL Creatinine (0.66-1.25) mg/dL Glucose (74-99) mg/dL POC Glucose (mg/dL) 310 H 197 H 177 H (70-110) mg/dL Calcium (8.4-10.2) mg/dL C-Reactive Protein (<1.0) mg/dL 05/18/24 05/18/24 05/18/24 Range/Units 06:21 06:21 11:43 WBC 10.7 H (3.8-10.6) k/uL MCHC 30.6 L (31.0-37.0) g/dL RDW 15.8 H (11.5-15.5) % Plt Count 81 L (150-450) k/uL Neutrophils # 9.1 H (1.3-7.7) k/uL Lymphocytes # 0.7 L (1.0-4.8) k/uL Chloride 81 L (98-107) mmol/L Carbon Dioxide 53 H* (22-30) mmol/L BUN 59 H (9-20) mg/dL Creatinine 1.76 H (0.66-1.25) mg/dL Glucose 164 H (74-99) mg/dL POC Glucose (mg/dL) 205 H (70-110) mg/dL Calcium 8.1 L (8.4-10.2) mg/dL C-Reactive Protein 1.5 H (<1.0) mg/dL Assessment and Plan Assessment: Acute on chronic hypoxemic and hypercapnic respiratory failure, secondary to exacerbation of chronic diastolic heart failure, as well as COPD exacerbation. Stage 4/very severe COPD, with an FEV1 that is 22% of predicted. Obstructive sleep apnea syndrome, noncompliant with noninvasive positive pressure ventilation. Morbid obesity, with BMI of 48.7 kg/m. Stage IIIa chronic kidney disease. History of chronic atrial fibrillation. Chronic lower extremity edema with multiple venous stasis ulcers. History of hypertension. History of hyperlipidemia. Former tobacco dependence. Severe cellulitis of the right lower extremity, S/P debridement. Plan: Plan dated May 18, 2024. The patient is maintained on BiPAP, and nasal cannula. We will add Symbicort to his regimen. The patient is not receiving any IV fluids. Labs, x-rays, medications are reviewed. Diamox was added by my partner yesterday. We will continue to follow make recommendations. Overall prognosis remains extremely po or. The patient has very severe/stage IV COPD. FEV1 is 22% of predicted. Not much more to add at this point. Time with Patient: Less than 30
--- NOTE | 2024-05-18 14:00 | P.DS ---
Providers Date of admission: 05/07/24 11:36 Expected date of discharge: 05/18/24 Attending physician: Danielle Urena Consults: 05/07/24 11:20 Consult Physician Urgent Consulting Provider: Rubén Gregory Consult Reason/Comments: anum Do you want consulting provider notified?: Already Contacted 05/07/24 11:37 Consult Physician Urgent Consulting Provider: Kamryn Galeana Consult Reason/Comments: leg wound Do you want consulting provider notified?: Yes [facility] Course: Final diagnosis Acute on chronic hypoxic and hypercapnic respiratory failure requiring BiPAP. Chronically wears 3 L outpatient as well as BiPAP at night Acute COPD exacerbation Acute on chronic CHF with preserved EF Paroxysmal atrial fibrillation on anticoagulation with Eliquis CKD stage III Recent admission with right lower extremity cellulitis s/p debridement and wound cultures growing MRSA and Acinetobacter species. bilateral lower extremity venous stasis Obstructive sleep apnea Morbid history BMI 47.5 Hypertension Severe noncompliance to medication and treatment plans Diabetes type 2 insulin-dependent Hyperemia Prior history of smoking Depression GI and DVT prophylaxis. Patient is on full anticoagulation. Discharge disposition Patient is being discharged in a stable condition with guarded prognosis to [facility]. Patient will follow-up with Dr. Iverson in the outpatient setting upon discharge. Patient is to continue with doxycycline and wound care with outpatient follow-up with Dr. Galeana as scheduled. Patient is to follow-up with pulmonary and cardiology outpatient. Total time taken is greater than 35 minutes. Hospital course This is a 59-year-old male who was recently admitted with shortness of breath worsening over the last few days and acute COPD exacerbation as well as CHF exacerbation. Patient with multiple consultations following maintained on BiPAP and he chronically wears a BiPAP at home as well as 3 to 4 L via nasal cannula chronically. Patient is extremely obese and noncompliant with all medication and treatment plans. Patient is extremely noncompliant with fluid restrictions and needs to be constantly redirected regarding total restrictions of 1200 cc or less daily. Patient is maintained on torsemide and will continue a prednisone taper along with inhalers and [id number] DuoNebs. Patient is to continue on BiPAP throughout the day as needed as well as 8P to 8 a every night. Patient is continued on local wound care of the lower extremity right side with Aquacel silver dressing changes along with Gonzalez wraps to bilateral lower extremities. Patient is maintained on doxycycline per infectious disease for recent history of MRSA infection of the right lower extremity and heel with cellulitis. Roney weston has chronic venous stasis of the lower extremities and extremely noncompliant as well with heart healthy and consistent carb diet. Patient's blood sugars are elevated although more controlled on current regimen and will continue with sliding scale, long-acting, and Premeal insulins. Patient with significant weakness and multiple hospitalization has progressively become more weak and evaluated by physical therapy recommending rehab. Patient is agreeable and patient's insurance has approved rehab. Patient has been cleared by consultations for discharge with close outpatient follow-up. Please refer to other consultation notes for further HPI. Currently no reports of chest pain, reports continuous shortness of breath, denies palpitations. Patient is afebrile. Patient also reports pain of the right lower extremity and is maintained on Burleson and was receiving Dilaudid in the hospital although given his respiratory demands and being too lethargic, patient is difficult to handle regarding pain control due to his increasing respiratory demands. No reports of nausea or vomiting and patient is tolerating diet. Patient will be going to [facility] today. Overall extremely poor and guarded prognosis and patient is an extremely high risk for readmissions due to his significant comorbidities, prolonged hospitalizations, and his overall noncompliance with medications and treatment plans. It is recommended that if patient requires rehospitalization that patient be transferred to a tertiary treatment center as patient has had multiple hospitalizations and no significant improvement regarding his multiple comorbidities. Patient has shown extreme clinical decline since November 2023. 05/18/2024 Patient is seen in follow-up with pulmonary and infectious disease following patient will continue Lamisil for a 6 weeks course along with Doxy for 7 days as ordered and also continued local wound care to the lower extremities with elevating while at rest. Patient has been started on Diamox in addition to torsemide and is to continue using [id number] nasal cannula and also BiPAP from 8P to 6 a as well as as needed. Patient with extensive end-stage COPD is at baseline per pulmonary and recommend to continue with prednisone taper along with [id number]-[id number] DuoNebs and as needed along with inhalers. Overall prognosis remains extremely poor and guarded. Physical exam: Gen: This is a 59-year-old male who is awake, alert and oriented, well- developed, elderly appearing, unkempt, morbidly obese, ill-appearing HEENT: Head is atraumatic, normocephalic. Pupils equal, round. Sclerae is anicteric. NECK: Supple. No JVD. No lymphadenopathy. No thyromegaly. LUNGS: Diminished breath sounds bilaterally with some scattered rhonchi. Faint expiratory wheezing noted. No intercostal retractions. HEART: S1, S2 are muffled ABDOMEN: Soft. Morbidly obese, protuberant bowel sounds are present. No masses. No tenderness. EXTREMITIES: Chronic lower pedal edema and discoloration. No calf tenderness. NEUROLOGICAL: Patient is awake, alert and oriented x3. Cranial nerves 2 through 12 are grossly intact. Diffusely weak Please refer to medication reconciliation sheet for a list of medications. The impression and plan of care has been dictated by Shayna Garcia, Nurse Practitioner as directed. Dr. Ja MD I have performed a history and examination and MDM of this patient, discussed the same with the dictator, and agree with the dictator's assessment and plan as written ,documented as a scribe. Based on total visit time, I have performed more than 50% of the visit. Patient Condition at Discharge: Serious Plan - Discharge Summary New Discharge Prescriptions: New Hydrocortisone Cream [Hydrocortisone 1% Cream] 1 applic TOPICAL BID PRN each PRN Reason: Skin Irritation HYDROcodone/APAP 10-325MG [Burleson 10-325] 1 each PO Q6HR PRN #4 tab PRN Reason: Pain Terbinafine [LamISIL] 250 mg PO DAILY tab INSULIN ASPART (NovoLOG) [NovoLOG (formulary)] 5 unit SQ AC-TID each acetaZOLAMIDE [Diamox] 250 mg PO BID tab Ipratropium-Albuterol Nebulize [Duoneb 0.5 mg-3 mg/3 ml Soln] 3 ml INHALATION Q2H PRN each PRN Reason: Shortness Of Breath Nystatin 100,000 Unit/ml Susp [Mycostatin Oral Susp] 500,000 unit PO QID ml Budesonide-Formot 160-4.5 Mcg [Symbicort 160-4.5 Mcg Inhaler] 2 puff INHALATION RT-BID each Continue hydrOXYzine pamoate [Vistaril] 50 mg PO HS PRN PRN Reason: ANXIETY/INSOMNIA Dapagliflozin Propanediol [Farxiga] 10 mg PO DAILY 30 Days #30 tab Amiodarone [Cordarone] 400 mg PO BID tab Metoprolol Tartrate [Lopressor] 150 mg PO BID tab Prochlorperazine [Compazine] 10 mg PO Q8H PRN PRN Reason: Nausea And Vomiting Naloxone HCl [Narcan] 4 mg NASAL DIRECTED PRN PRN Reason: overdose Tamsulosin [Flomax] 0.4 mg PO DAILY Acetaminophen [Tylenol] 650 mg PO Q6H PRN PRN Reason: Fever And/ Or Pain Torsemide [Demadex] 10 mg PO DAILY SILVER sulfADIAZINE Cream [Silvadene 1% Cream] 1 applic TOPICAL DAILY each ALPRAZolam [Xanax] 0.25 mg PO TID #6 tab Atorvastatin [Lipitor] 10 mg PO HS busPIRone HCl [Buspar] 5 mg PO TID 30 Days #90 tab Apixaban [Eliquis] 5 mg PO BID Finasteride [Proscar] 5 mg PO DAILY Sertraline [Zoloft] 50 mg PO DAILY Albuterol Sulfate [Ventolin HFA] 1 puff INHALATION RT-BID Spironolactone [Aldactone] 12.5 mg PO DAILY tab diphenhydrAMINE [Benadryl] 25 mg PO BID PRN cap PRN Reason: Itching Ipratropium-Albuterol Nebulize [Duoneb 0.5 mg-3 mg/3 ml Soln] 3 ml INHALATION RT-QID each Ipratropium-Albuterol Nebulize [Duoneb 0.5 mg-3 mg/3 ml Soln] 3 ml INHALATION RT-Q2H PRN each PRN Reason: Shortness Of Breath Or Wheezing Insulin Detemir (Levemir) [Levemir] 15 unit SQ BID@0700,2100 each predniSONE See Taper PO DIRECTED #30 tab Pantoprazole [Protonix] 40 mg PO AC-BID tab Calcium Carbonate [Tums] 1,000 mg PO QID PRN tab PRN Reason: Heartburn INSULIN ASPART (NovoLOG) [NovoLOG (formulary)] See Protocol SQ ACHS 0.9 % Sodium Chloride [Sodium Chloride Flush] 10 ml IV BID Doxycycline [Vibramycin] 100 mg PO BID 10 Days #20 capsule Pregabalin [Lyrica] 150 mg PO BID #6 cap Discontinued Cephalexin [Keflex] 500 mg PO Q6HR 10 Days #40 cap Budesonide-Formot 160-4.5 Mcg [Symbicort 160-4.5 Mcg Inhaler] 2 puff INHALATION RT-BID each HYDROcodone/APAP 7.5-325MG [Burleson 7.5-325] 1 tab PO Q6HR PRN #6 tab PRN Reason: Pain Discharge Medication List hydrOXYzine pamoate [Vistaril] 50 mg PO HS PRN 07/09/22 [History] Atorvastatin [Lipitor] 10 mg PO HS 08/01/22 [History] Dapagliflozin Propanediol [Farxiga] 10 mg PO DAILY 30 Days #30 tab 09/10/22 [Rx] busPIRone HCl [Buspar] 5 mg PO TID 30 Days #90 tab 09/10/22 [Rx] Apixaban [Eliquis] 5 mg PO BID 12/12/23 [History] Finasteride [Proscar] 5 mg PO DAILY 12/12/23 [History] Sertraline [Zoloft] 50 mg PO DAILY 12/12/23 [History] Albuterol Sulfate [Ventolin HFA] 1 puff INHALATION RT-BID 04/04/24 [History] Amiodarone [Cordarone] 400 mg PO BID tab 04/22/24 [Rx] Calcium Carbonate [Tums] 1,000 mg PO QID PRN tab 04/22/24 [Rx] Insulin Detemir (Levemir) [Levemir] 15 unit SQ BID@0700,2100 each 04/22/24 [Rx] Ipratropium-Albuterol Nebulize [Duoneb 0.5 mg-3 mg/3 ml Soln] 3 ml INHALATION RT-Q2H PRN each 04/22/24 [Rx] Ipratropium-Albuterol Nebulize [Duoneb 0.5 mg-3 mg/3 ml Soln] 3 ml INHALATION RT-QID each 04/22/24 [Rx] Metoprolol Tartrate [Lopressor] 150 mg PO BID tab 04/22/24 [Rx] Pantoprazole [Protonix] 40 mg PO AC-BID tab 04/22/24 [Rx] Spironolactone [Aldactone] 12.5 mg PO DAILY tab 04/22/24 [Rx] diphenhydrAMINE [Benadryl] 25 mg PO BID PRN cap 04/22/24 [Rx] predniSONE See Taper PO DIRECTED #30 tab 04/22/24 [Rx] 0.9 % Sodium Chloride [Sodium Chloride Flush] 10 ml IV BID 05/01/24 [History] Acetaminophen [Tylenol] 650 mg PO Q6H PRN 05/01/24 [History] INSULIN ASPART (NovoLOG) [NovoLOG (formulary)] See Protocol SQ ACHS 05/01/24 [History] Naloxone HCl [Narcan] 4 mg NASAL DIRECTED PRN 05/01/24 [History] Prochlorperazine [Compazine] 10 mg PO Q8H PRN 05/01/24 [History] Tamsulosin [Flomax] 0.4 mg PO DAILY 05/01/24 [History] Torsemide [Demadex] 10 mg PO DAILY 05/01/24 [History] Doxycycline [Vibramycin] 100 mg PO BID 10 Days #20 capsule 05/05/24 [Rx] SILVER sulfADIAZINE Cream [Silvadene 1% Cream] 1 applic TOPICAL DAILY each 05/05/24 [Rx] ALPRAZolam [Xanax] 0.25 mg PO TID #6 tab 05/15/24 [Rx] HYDROcodone/APAP 10-325MG [Burleson 10-325] 1 each PO Q6HR PRN #4 tab 05/15/24 [Rx] Hydrocortisone Cream [Hydrocortisone 1% Cream] 1 applic TOPICAL BID PRN each 05/15/24 [Rx] INSULIN ASPART (NovoLOG) [NovoLOG (formulary)] 5 unit SQ AC-TID each 05/15/24 [Rx] Pregabalin [Lyrica] 150 mg PO BID #6 cap 05/15/24 [Rx] Budesonide-Formot 160-4.5 Mcg [Symbicort 160-4.5 Mcg Inhaler] 2 puff INHALATION RT-BID each 05/18/24 [Rx] Ipratropium-Albuterol Nebulize [Duoneb 0.5 mg-3 mg/3 ml Soln] 3 ml INHALATION Q2H PRN each 05/18/24 [Rx] Nystatin 100,000 Unit/ml Susp [Mycostatin Oral Susp] 500,000 unit PO QID ml 05/18/24 [Rx] Terbinafine [LamISIL] 250 mg PO DAILY tab 05/18/24 [Rx] acetaZOLAMIDE [Diamox] 250 mg PO BID tab 05/18/24 [Rx] Follow up Appointment(s)/Referral(s): Sita Waetrman MD [STAFF PHYSICIAN] - 1 Week Aron Lua MD [STAFF PHYSICIAN] - 1 Week Parish Iverson MD [Primary Care Provider] - 1-2 days Activity/Diet/Wound Care/Special Instructions: Patient is going to [facility] [place] Activity as tolerated Bipap at hs and prn 12/ with 35% FI02 - wear from 8pm to 8am O2 3L/NC / Maintain O2 sats between 87% and 92% Strongly reinforce fluid restrictions of 1200 cc daily Continue prednisone taper Follow-up with primary care provider on discharge Follow-up with pulmonary outpatient Follow-up with cardiology outpatient Continue on doxycycline Continue with local wound care to the lower extremities on the right with dry Aquacel silver dressings daily and if becoming soiled and Gonzalez wraps from the toes up to the knees daily Elevate lower extremities while at rest Continue monitoring blood sugars and continue with heart healthy diabetic diet NovoLog sliding scale 0-150 equals 0 units 151-200 equals 2 units 201-250 equals 4 units 251-300 equals 6 units 301-350 equals 8 units 351-400 equals 10 units Please notify provider if blood sugar is 400 or above Continue with long-acting as well as Premeal insulins in addition to sliding scale Discharge Disposition: TRANSFER TO SNF/ECF
[2024-05-18 16:40] LABS: Glucose,Whole Blood 292 mg/dL (70-110)
[2024-05-18 19:50] LABS: Glucose,Whole Blood 292 mg/dL (70-110)
[2024-05-18] MEDS: SYMBICORT 160-4.5 MCG INHALER INHALATION SCH (20:31)
[2024-05-19 05:58] LABS: Glucose,Whole Blood 136 mg/dL (70-110)
[2024-05-19 11:27] LABS: Glucose,Whole Blood 176 mg/dL (70-110)
--- NOTE | 2024-05-19 11:30 | P.PN ---
Subjective Progress Note Date: 05/19/24 Principal diagnosis: Shortness of breath. This is a 59-year-old male patient who was hospitalized with worsening shortness of breath. The patient was discharged to [facility] on 05/05/2024 after having a prolonged hospitalization during which the patient was treated for right lower extremity wound/abscess with secondary cellulitis that failed outpatient treatment. The patient required debridement and the cultures were positive for MRSA and the patient was sent to [facility] with a course of oral antibiotics including Keflex and doxycycline. Nevertheless, he ended up coming back with worsening shortness of breath. Chest x-ray shows some small bilateral pleural effusion. The patient's chest x-ray was most consistent with CHF. In the emergency, the patient was quite hypercapnic and based on that, the patient was placed on a BiPAP pressure of 12 over 5 cm of water. He is awake and alert and is currently on FiO2 of 50%. No signs of any CO2 narcosis. The white cell count is at 5.7 with a hemoglobin 13.9 and a platelet count of 188. BUN 31 and a creatinine of 1.2. And the patient's sodium levels at 143, serum bicarb is at 35. The patient is currently on DuoNeb nebulized treatments [id number]. The patient was started on IV Solu-Medrol suspecting also component of COPD exacerbation. Cardiac enzymes has not been checked. proBNP has not been checked. Lactic acid level currently is at 0.9. Denies having any chest pain. No significant sputum production. Hemodynamically stable. This patient's comorbidities are multiple. The patient has CHF with preserved LV function. Most recent left ventricular ejection fraction has been within normal limits. The patient also has also diabetes mellitus type 2, chronic stage IIIa kidney disease, hypertension, paroxysmal atrial fibrillation and the patient has undergone recent cardioversion on 04/08/2024. He is morbidly obese with a BMI of 47 and is known to have obstructive sleep apnea, noncompliant to CPAP therapy. He has been hospitalized also in the past with signs of fluid overload. He was 22,024, the patient is being seen for a follow-up. on the patient just got transferred to the medical floor. This morning, the patient is currently on 3 days of oxygen by nasal cannula the patient was taken off the BiPAP. Started on diuretics yesterday and the fluid balance has been negative and is producing adequate amount of urine output. BUN is 47 with a creatinine of 0.9. Potassium is at 5.4 with a sodium level of 138. WBC count is 6.7 with a hemoglobin 14.6. Seen by infectious disease. Started on cefepime IV and doxycycline. Repeat wound culture showing gram-negative bacillus. On 05/09/2024, the patient sitting up in a chair and the patient is calm and comfortable. Repeat blood gas was done today and showed a pH of 7.37 with a pCO2 of 69 and pO2 of 68. Follow-up chest x-ray from today shows no acute cardiopulmonary disease and there is cardiomegaly and mild pulm vessel congestion. No labs are available from today. BUN is 47 records of 0.9. Fluid balance is -3.1 L and the patient is headed towards a negative fluid balance. Remains on bronchodilators. Remains on IV Lasix 40 mg every 12 hours. Remains on IV cefepime. He is also on doxycycline. He is also on IV Solu-Medrol 60 mg IV push every 6 hours. Remains on anticoagulation with Eliquis 5 mg p.o. twice a day. Levemir insulin 15 units twice daily plus a sliding scale coverage. 05/10/2024, patient is being seen for a follow-up. He is alternating within the BiPAP and oxygen at 3 L/min nasal cannula. Remains bronchospastic and wheezy. He still producing excellent urine output. BUN 66 with a creatinine of 1.2 and continues to have swelling in lower extremities. Sodium levels at 139. White cell count is at 9.2 with a hemoglobin of 15.1. Antibiotic coverage with doxycycline and ID is on the case. The cultures from the wound showed multidrug-resistant Acinetobacter. Patient was evaluated today on 05/11/2024, presently on BiPAP, intermittently on 3 L nasal cannula, continues to have cough wheezing and shortness of breath, on physical examination he sounded a bit bronchospastic, patient remains on antibiotics/doxycycline as per ID patient had history of multidrug-resistant Acinetobacter. Pulmonary hernandez patient is on proper bronchodilators is also on proper diuretics, and on BiPAP. Being followed by infectious disease for his chronic right lower extremity cellulitis.WBC count is 9.2 electrolytes are normal BUN is 66 creatinine 1.28 BNP level is 3060 Patient was evaluated today on 05/12/2024, complaining again about his multiple issues including chronic shortness of breath and about his lower extremities and ongoing right lower extremity cellulitis and nonhealing ulcers in the right l ower extremity. Pulmonary hernandez patient remains on diuretics remains on oxygen remains on BiPAP remains on bronchodilators and steroids. Nonetheless patient continues to have shortness of breath at rest and on exertion labs today were all reviewed blood sugar was noted to be 315 hence I cut down his methylprednisolone to 40 mg IV push every 8 hours. Reevaluate today on 05/13/2024, patient is on BiPAP, quite sleepy, last night had some worsening shortness of breath, I recommended Decadron I also recommended Lasix, chest x-ray was also noted, ABG was noted, actually his workup does not seem to be remarkable and his ABG is expected to be as such. With relatively high pCO2 but he is compensating metabolically well maintaining a pH of 7.32. ABG showed a pO2 of 114 pCO2 85 pH of 7.32 chest x-ray did show minimal pulmonary edema/interstitial pulmonary vascular congestion but he did receive Lasix and he is on diuretics maintenance Reevaluate today on 05/14/2024, patient is sitting at the edge of the bed, on BiPAP, does not seem to be in distress, however he continues to complain of shor tness of breath all the time, continues to complain of right-sided foot pain, yesterday patient was evaluated again by the a team and did not feel that the patient needs to be admitted to the ICU. Patient did receive steroids and diuretics, and he seems to be doing fairly well except for his ongoing complaints of being short of breath and having pain. Repeat ABG yesterday showed a pO2 of 104 pCO2 87 pH of 7.35 and that basically about his baseline. FiO2 could be cut down to 35% patient remains on diuretics for chronic diastolic congestive heart failure and he is maximal on bronchodilators Patient was seen today on 05/15/2024, patient is basically about the same. On BiPAP, FiO2, down from 40% to 35% based on his last ABG. Continues to have intermittent episodes of shortness of breath and chronic pain in right lower extremity. Patient remains on bronchodilators antibiotics, diuretics, no major issue or change in the last 24 hours. No labs done today except a blood sugar of 127. Patient was seen today on 05/16/2024, basically about the same, not much has changed over the last few days, remains intermittently on BiPAP, FiO2 down to 35%, patient continues to complain of shortness of breath with any activity, continues to complain of right foot pain. Patient is maximal on bro nchodilators, antibiotics, steroids, I do not believe much more can be added, and the patient was made aware of the situation that this is the best he is going to get. Labs today showed WBC count of 15.2 hemoglobin is 16.0 bicarb is 54, BUN is 69 creatinine 1.29 Patient was evaluated for, continues to have shortness of breath with any activity, occasional cough, patient is intermittently on BiPAP alternating with nasal cannula. Not much of a change in the last 24 hours, considering his bicarb is getting worse, I am recommending that we replace one of the doses of Lasix with Diamox.WBC 16.4 hemoglobin 15.6 electrolytes are normal except for bicarb of 60 BUN is 69 creatinine 1.64 Progress note dated May 18, 2024. 59-year-old male with a history of acute on chronic respiratory failure. The patient is currently on BiPAP, with settings of 12/5, 35%. In addition he wears nasal cannula at 3 L. No IV fluids. The patient is chronically lethargic, and somnolent. This is because of his chronic respiratory failure. Current laboratory includes a white count 10.7, hemoglobin 15.5, hematocrit 50.6, and platelet count 81,000. Sodium 137, potassium 4.1, chlorides 81, CO2 53, BUN 59, creatinine 1.76. Glucose is 205. Calcium is 8.1. C-reactive protein 1.5, and procalcitonin level was normal at 0.14. Wound cultures were apparently positive for Acinetobacter. No recent chest x-ray. Progress note dated May 19, 2024. 59-year-old male who looks much older than his stated age. He is seen today in room 351. He is sitting on the side of the bed. The patient continues on BiPAP, with settings of 12/5, and 35%. He is doing the same today and, as he was yesterday. No new labs today, other than a glucose of 176. Leg wound from May 07, with positive for Acinetobacter. No recent chest x-ray to report. Objective - Vital Signs Vital signs: Vital Signs Temp 97.2 F L 05/19/24 08:00 Pulse 69 05/19/24 09:59 Resp 20 05/19/24 08:00 BP 88/59 05/19/24 08:00 Pulse Ox 98 05/19/24 08:00 FiO2 35 05/19/24 09:49 Intake & Output 05/18/24 05/19/24 05/19/24 18:59 06:59 18:59 Intake Total 600 Output Total 2700 700 Balance -2100 -700 Weight 155.1 kg Intake: Oral 600 Output: Urine 2700 700 Other: Voiding Method Urinal Urinal # Bowel Movements 0 - Exam No acute distress, much more awake and alert today. Sitting at the side of the bed. BiPAP mask in place. HEENT examination is grossly unremarkable. Neck supple. Full range of motion. No adenopathy thyromegaly or neck vein distention. Cardiovascular examination reveals regular rhythm rate. S1-S2 normal. No S3 or S4. No discernible murmur noted. Lungs reveal fairly diminished breath sounds. Scattered rhonchi. No wheezes. Breath sounds equal but diminished. Abdomen is obese, without masses. Extremities are intact. No cyanosis or clubbing. 1+ edema is noted. Skin reveals chronic venous stasis changes, with hyperpigmentation. Neurologic examination is brief but nonfocal. - Labs CBC & Chem 7: 05/18/24 06:21 05/18/24 06:21 Labs: Abnormal Lab Results - Last 24 Hours (Table) 05/18/24 05/18/24 05/18/24 Range/Units 11:43 16:37 19:48 POC Glucose (mg/dL) 205 H 292 H 292 H (70-110) mg/dL 05/19/24 05/19/24 Range/Units 05:56 11:25 POC Glucose (mg/dL) 136 H 176 H (70-110) mg/dL Assessment and Plan Assessment: Acute on chronic hypoxemic and hypercapnic respiratory failure, secondary to exacerbation of chronic diastolic heart failure, as well as COPD exacerbation. Stage 4/very severe COPD, with an FEV1 that is 22% of predicted. Obstructive sleep apnea syndrome, noncompliant with noninvasive positive pressure ventilation. Morbid obesity, with BMI of 48.7 kg/m. Stage IIIa chronic kidney disease. History of chronic atrial fibrillation. Chronic lower extremity edema with multiple venous stasis ulcers. History of hypertension. History of hyperlipidemia. Former tobacco dependence. Severe cellulitis of the right lower extremity, S/P debridement. Plan: Plan dated May 18, 2024. The patient is maintained on BiPAP, and nasal cannula. We will add Symbicort to his regimen. The patient is not receiving any IV fluids. Labs, x-rays, med ications are reviewed. Diamox was added by my partner yesterday. We will continue to follow make recommendations. Overall prognosis remains extremely poor. The patient has very severe/stage IV COPD. FEV1 is 22% of predicted. Not much more to add at this point. Plan dated May 19, 2024. The patient is seen today in room 351. He continues on BiPAP, with settings of 12/5, 35%. The patient is not receiving any IV fluids. Labs, x-rays, medications are reviewed. The patient is doing about the same today, as he was yesterday. The patient does have chronic lower extremity edema, with chronic venous stasis changes, and hyperpigmentation. His FEV1, is 22% of predicted. The patient's overall prognosis remains very poor. We will continue to follow make recommendations where appropriate. Time with Patient: Less than 30
--- NOTE | 2024-05-19 13:50 | P.PN ---
Subjective Progress Note Date: 05/19/24 Principal diagnosis: Reason for follow-up is right lower extremity wound and cellulitis Patient is a 59-year-old male with a past medical history significant for hypertension hyperlipidemia COPD heart failure with asthma atrial fibrillation recently admitted to the hospital with the patient did have right lower extremity infected hematoma presenting back to the hospital for worsening shortness of breath. On today's evaluation that is 05/19/2024, the patient continues to be afebrile, the patient is on BiPAP currently on 35% FiO2 patient is currently sleepy did not answer question no vomiting diarrhea any change reported by the nursing staff. No Has been obtained today Objective - Vital Signs Vital signs: Vital Signs Temp 97.2 F L 05/19/24 08:00 Pulse 72 05/19/24 11:58 Resp 20 05/19/24 08:00 BP 88/59 05/19/24 08:00 Pulse Ox 98 05/19/24 08:00 FiO2 35 05/19/24 11:51 Intake & Output 05/18/24 05/19/24 05/19/24 18:59 06:59 18:59 Intake Total 600 Output Total 2700 700 Balance -2100 -700 Weight 155.1 kg Intake: Oral 600 Output: Urine 2700 700 Other: Voiding Method Urinal Urinal # Bowel Movements 0 - Exam Middle-age male up in the bed in no distress Unlabored breathing Right lower extremity wound is currently dressed no drainage - Labs CBC & Chem 7: 05/18/24 06:21 05/18/24 06:21 Labs: Abnormal Lab Results - Last 24 Hours (Table) 05/18/24 05/18/24 05/19/24 Range/Units 16:37 19:48 05:56 POC Glucose (mg/dL) 292 H 292 H 136 H (70-110) mg/dL 05/19/24 Range/Units 11:25 POC Glucose (mg/dL) 176 H (70-110) mg/dL Assessment and Plan (1) Wound of right lower extremity Current Visit: Yes Status: Acute Code(s): S81.801A - UNSPECIFIED OPEN WOUND, RIGHT LOWER LEG, INITIAL ENCOUNTER SNOMED Code(s): 35384038807335095 (2) Cellulitis of right lower extremity Current Visit: No Status: Acute Code(s): L03.115 - CELLULITIS OF RIGHT LOWER LIMB SNOMED Code(s): 75604601278337911 (3) Onychomycosis due to dermatophyte Current Visit: Yes Status: Acute Code(s): B35.1 - TINEA UNGUIUM SNOMED Code(s): 795975564 (4) Leukocytosis Current Visit: No Status: Acute Code(s): D72.829 - ELEVATED WHITE BLOOD CELL COUNT, UNSPECIFIED SNOMED Code(s): 365111477 Plan: 1patient presented to hospital with increasing shortness of breath possible related underlying cardiopulmonary condition clinically not behaving as pneumonia with no fever or elevated white count. Pulmonary has been consulted for further management 2patient with a recent right lower extremity infected hematoma s/p drainage with a wound with developed deep wound with slough tissue and no significant surrounding redness 3-patient local culture did grew drug-resistant Acinetobacter possible colonizer as the patient not running any fever white count is normal and there was no evidence of any redness or warmth 4patient to continue-local wound care to the right lower extremity wound with the dry Aquacel silver dressing and oral doxycycline x 7 days on discharge 5-the patient did have extensive bilateral feet toe fungal infection for the patient to continue with Lamisil x 6 weeks on discharge 6worsening white count possible oropharyngeal candidiasis, the patient white count has normalized no CBC was done today plan is to continue with nystatin swish and swallow x 7 days on discharge Dictation was produced using [employer] dictation software. please excuse any grammatical, word or spelling errors. Time with Patient: Less than 30
[2024-05-19 16:37] LABS: Glucose,Whole Blood 232 mg/dL (70-110)
[2024-05-19 20:03] LABS: Glucose,Whole Blood 240 mg/dL (70-110)
--- NOTE | 2024-05-20 03:46 | P.PN ---
Subjective Progress Note Date: 05/19/24 59-year-old male with a past medical history of atrial fibrillation on anticoagulation with Eliquis, chronic CHF, COPD, hypertension, hyperlipidemia, obstructive sleep apnea, depression, prior history of smoking and morbid obesity BMI 47.5. Patient was recently discharged to medical [place] on 04/04/2024 after prolonged hospitalization due to right lower extremity cellulitis/abscess and wound. Patient was discharged with a course of antibiotics of Keflex and doxycycline. Patient presented back to hospital due to worsening shortness of breath. Patient initially presented to [facility] and [facility]. Chest x-ray showed small bilateral pleural effusions and CHF. Patient was placed on BiPAP. Denied any complaints of fever or chills. Complains of right lower extremity pain. Does have cough without any sputum production. Laboratory showed WBC 4.2 hemoglobin 13.9 and platelets 163 sodium 136 potassium 5.3 chloride 100 bicarb is 34 BUN 37 creatinine 0.88 and blood sugar 159 and calcium 8.1. Creatinine 0.9. Patient was given a dose of IV Solu-Medrol and IV Levaquin in the ER. 05/09/2024 --patient is seen and evaluated in room at bedside; has been afebrile, patient is breathing comfortably and is currently on 3 L nasal oxygen, patient denies having any significant cough no chest pain, patient denies nausea vomiting or diarrhea and no abdominal pain denies any worsening pain to the right leg or any drainage. No CBC was done today culture from the right leg is currently growing gram- negative with ID sensitivity pending patient presented to hospital with increasing shortness of breath possible related underlying cardiopulmonary condition clinically not behaving as pneumonia with no fever or elevated white count. Pulmonary has been consulted for further management patient with a recent right lower extremity infected hematoma s/p drainage with a wound with developed deep wound with slough tissue and no significant surrounding redness -patient to continue-local wound care to the right lower extremity wound with the Aquacel silver dressing change daily followed by Gonzalez wrap to keep the swelling down patient local culture growing gram-negative with ID sensitivity pending continue with the cefepime and doxycycline and monitor clinical course closely 05/10/2024 -patient is being seen and evaluated for a follow-up. He is alternating within the BiPAP and oxygen at 3 L/min nasal cannula. Remains bronchospastic and wheezy. He still producing excellent urine output. Lab review shows BUN 66 with a creatinine of 1.2 and continues to have swelling in lower extremities. Sodium levels at 139. White cell count is at 9.2 with a hemoglobin of 15.1. Antibiotic coverage with doxycycline and ID is on the case. The cultures from the wound showed multidrug-resistant Acinetobacter. Blood glucose remains elevated above 250; we will add insulin lispro 5 units before each meal; continue to monitor Accu-Cheks q. ACH S with insulin sliding scale 05/11/2024 Patient is seen in follow-up today continues on the BiPAP continues to report shortness of breath. Patient is lethargic although arousable with pulmonary fo llowing. Patient is maintained on IV steroids along with [id number] DuoNebs. Infectious disease is following and is continued on oral doxycycline. Continue with fluid restrictions and also diuretic use. Patient is maintained on insulins with Accu-Cheks before meals and at bedtime and will adjust accordingly as blood sugars are chronically uncontrolled and elevated. Patient is also continued on steroids. Encouraged increase activity as tolerated and recommend PT/OT therapy evaluation. Patient with significant comorbidities and unable to care for himself recommend PT/OT therapy evaluation and rehab. Patient has had frequent rehospitalization's most recently and has been hospitalized more than 3 times. 05/12/2024 Patient is seen in follow-up with no acute overnight issues noted. Patient continues to report shortness of breath maintained on chronic nasal cannula 3 to 4 L daily as well as BiPAP as needed and at night. Working on possible ECF for continued strength and mobility. Patient feels he cannot take care of himself at home and needs further medical care. Case management following and submitting for insurance authorization. Recommend PT/OT therapy evaluation for updated notes. 05/13/2024 Patient is seen in follow-up today with pulmonary and infectious disease following. Patient continues on DuoNeb treatments along with steroids and being transition to oral prednisone. Patient continues to report significant shortness of breath and difficulty in breathing overnight. Patient has been instructed to use BiPAP as needed as well as 8 PM to 8 AM. Patient is significantly weak and high risk for falls with significant comorbidities. Patient awaiting insurance authorization for ECF. Patient would benefit from ECF on discharge. Case management is following. 05/14/2024 Patient is seen in follow-up today maintained on BiPAP throughout the day as patient is having increasing shortness of breath and will readjust medications and transition back to IV Lasix. Chest x-ray yesterday shows some vascular congestion and will diurese and monitor improvements in respiratory status. Patient is to use BiPAP as needed as well as at 8 PM to 8 AM daily. Patient did receive insurance authorization for ECF and initially was going to be discharged today although has been continuously using the BiPAP today. Patient is afebrile denies chest pain or palpitations. Patient tolerating diet and blood sugars have been elevated. Patient is also on steroids and has been transitioned to oral prednisone. 05/19/2024 Patient is seen in follow-up today with no acute overnight issues noted. Patient remains on BiPAP along with 3 to 4 L via nasal cannula. Patient is continued on oral steroids along with [id number] DuoNeb treatments, IV Lasix once daily along with Diamox. Patient continues to report shortness of breath which he chronically does. Patient awaiting to go to ECF and requiring reauthorization. Awaiting updated PT/OT therapy notes. Review of systems: Constitutional: No reports of fatigue, fever, or chills Cardiovascular: No reports of chest pain or palpitations Respiratory: reports of continued shortness of breath or cough GI: No reports of nausea, vomiting, or diarrhea : No reports of dysuria or retention Neurovascular: reports of generalized weakness and some continued right foot pain All medications have been reviewed Physical exam: Patient is laying in the bed. Awake, alert and oriented x 3. Currently on BiPAP. Mild distress due to shortness of breath. Intermittently using his chronic 3 L, well-developed, elderly appearing, morbidly obese HEENT: Normocephalic. Neck is supple. Pupils reactive. Nostrils clear. Oral cavity is moist. Neck reveals no JVD, carotid bruits, or thyromegaly. CHEST EXAMINATION: Trachea is central. Symmetrical expansion. Bibasilar diminished sounds. Expiratory wheezing. Scattered rhonchi. CARDIAC: Normal S1, S2 with no gallops. No murmurs ABDOMEN: Soft. Obese. Bowel sounds normal. No organomegaly. No abdominal bruits. Extremities: Bilateral lower extremity 1+ edema with right lower extremity wound on the lateral side of the colon.. No clubbing or cyanosis, chronic discoloration of the lower extremities Neurologically asleep but arousable, awake, alert, oriented x3. Able to move all extremities. No gross focal deficits noted, diffusely weak Skin: No rash or skin lesions. Psychiatric: Cooperative. Non-suicidal Musculoskeletal: No joint swelling or deformity. Assessment: Acute on chronic hypoxic and hypercapnic respiratory failure requiring BiPAP. Chronically wears 3 L outpatient Acute COPD exacerbation Acute on chronic CHF with preserved EF Paroxysmal atrial fibrillation on anticoagulation with Eliquis CKD stage III Recent admission with right lower extremity cellulitis s/p debridement and wound cultures growing MRSA and Acinetobacter species. Patient was discharged on Keflex and doxycycline. bilateral lower extremity venous stasis Obstructive sleep apnea Morbid history BMI 47.5 Hypertension Diabetes type 2 insulin-dependent Hyperemia Prior history of smoking Depression GI and DVT prophylaxis. Patient is on full anticoagulation. Plan: Patient is currently on BiPAP. Recommend using BiPAP intermittently as needed as well as 8 PM to 8 AM. Patient having increased shortness of breath today requiring BiPAP throughout most of the day. Patient will have BiPAP at ECF and case management following making arrangements for patient to have BiPAP on discharge. Patient reports he does have BiPAP at the home. Patient continues on oral prednisone taper. Continue with DuoNebs and Symbicort. Continue with home medications and antibiotics. Infectious disease following as patient has recently had right lower extremity cellulitis with MRSA Continue monitoring Accu-Cheks before meals and at bedtime and will continue insulin sliding scale and insulin regimen. Adjust accordingly Wound care following recommend to continue with current wound care of the right lower extremity. Elevate lower extremities while at rest. Infectious disease following and patient is continued on antibiotics from previous right lower extremity cellulitis and wounds. Patient will need outpatient follow-up at the wound care center PT/OT therapy evaluated recommending ECF. case management/social work following and awaiting insurance authorization approval again and needs updated PT/OT therapy notes. Patient is extremely weak and has had multiple hospitalizations most recently with prolonged hospitalization and would benefit from continued aggressive PT/OT therapy and ongoing medical care regarding his COPD and CHF as well as wound care. Patient is unable to care for himself at home and has had multiple hospitalizations due to this. Due to significant complex medical issues, overall prognosis guarded at this time. possible discharge planning in the next 24 hours The impression and plan of care has been dictated by Shayna Garcia, Nurse Practitioner as directed. Dr. Ja MD I have performed a history and examination and MDM of this patient, discussed the same with the dictator, and agree with the dictator's assessment and plan as written ,documented as a scribe. Based on total visit time, I have performed more than 50% of the visit. Objective - Vital Signs Vital signs: Vital Signs Temp 98.2 F 05/19/24 23:19 Pulse 63 05/19/24 23:19 Resp 18 05/19/24 23:19 BP 93/60 05/19/24 23:19 Pulse Ox 77 L 05/19/24 23:19 FiO2 35 05/20/24 00:42 Intake & Output 05/19/24 05/19/24 05/20/24 06:59 18:59 06:59 Output Total 700 Balance -700 Weight 155.1 kg Output: Urine 700 Other: Voiding Method Urinal Urinal - Labs CBC & Chem 7: 05/18/24 06:21 05/18/24 06:21 Labs: Abnormal Lab Results - Last 24 Hours (Table) 05/19/24 05/19/24 05/19/24 Range/Units 05:56 11:25 16:36 POC Glucose (mg/dL) 136 H 176 H 232 H (70-110) mg/dL 05/19/24 Range/Units 20:02 POC Glucose (mg/dL) 240 H (70-110) mg/dL
[2024-05-20 04:58] VITALS: TEMP 97.3
[2024-05-20 06:09] LABS: Glucose,Whole Blood 162 mg/dL (70-110)
[2024-05-20 11:26] LABS: Glucose,Whole Blood 184 mg/dL (70-110)
--- NOTE | 2024-05-20 12:06 | P.PN ---
Subjective Progress Note Date: 05/20/24 Principal diagnosis: Shortness of breath. This is a 59-year-old male patient who was hospitalized with worsening shortness of breath. The patient was discharged to [facility] on 05/05/2024 after having a prolonged hospitalization during which the patient was treated for right lower extremity wound/abscess with secondary cellulitis that failed outpatient treatment. The patient required debridement and the cultures were positive for MRSA and the patient was sent to [facility] with a course of oral antibiotics including Keflex and doxycycline. Nevertheless, he ended up coming back with worsening shortness of breath. Chest x-ray shows some small bilateral pleural effusion. The patient's chest x-ray was most consistent with CHF. In the emergency, the patient was quite hypercapnic and based on that, the patient was placed on a BiPAP pressure of 12 over 5 cm of water. He is awake and alert and is currently on FiO2 of 50%. No signs of any CO2 narcosis. The white cell count is at 5.7 with a hemoglobin 13.9 and a platelet count of 188. BUN 31 and a creatinine of 1.2. And the patient's sodium levels at 143, serum bicarb is at 35. The patient is currently on DuoNeb nebulized treatments [id number]. The patient was started on IV Solu-Medrol suspecting also component of COPD exacerbation. Cardiac enzymes has not been checked. proBNP has not been checked. Lactic acid level currently is at 0.9. Denies having any chest pain. No significant sputum production. Hemodynamically stable. This patient's comorbidities are multiple. The patient has CHF with preserved LV function. Most recent left ventricular ejection fraction has been within normal limits. The patient also has also diabetes mellitus type 2, chronic stage IIIa kidney disease, hypertension, paroxysmal atrial fibrillation and the patient has undergone recent cardioversion on 04/08/2024. He is morbidly obese with a BMI of 47 and is known to have obstructive sleep apnea, noncompliant to CPAP therapy. He has been hospitalized also in the past with signs of fluid overload. He was 22,024, the patient is being seen for a follow-up. on the patient just got transferred to the medical floor. This morning, the patient is currently on 3 days of oxygen by nasal cannula the patient was taken off the BiPAP. Started on diuretics yesterday and the fluid balance has been negative and is producing adequate amount of urine output. BUN is 47 with a creatinine of 0.9. Potassium is at 5.4 with a sodium level of 138. WBC count is 6.7 with a hemoglobin 14.6. Seen by infectious disease. Started on cefepime IV and doxycycline. Repeat wound culture showing gram-negative bacillus. On 05/09/2024, the patient sitting up in a chair and the patient is calm and comfortable. Repeat blood gas was done today and showed a pH of 7.37 with a pCO2 of 69 and pO2 of 68. Follow-up chest x-ray from today shows no acute cardiopulmonary disease and there is cardiomegaly and mild pulm vessel congestion. No labs are available from today. BUN is 47 records of 0.9. Fluid balance is -3.1 L and the patient is headed towards a negative fluid balance. Remains on bronchodilators. Remains on IV Lasix 40 mg every 12 hours. Remains on IV cefepime. He is also on doxycycline. He is also on IV Solu-Medrol 60 mg IV push every 6 hours. Remains on anticoagulation with Eliquis 5 mg p.o. twice a day. Levemir insulin 15 units twice daily plus a sliding scale coverage. 05/10/2024, patient is being seen for a follow-up. He is alternating within the BiPAP and oxygen at 3 L/min nasal cannula. Remains bronchospastic and wheezy. He still producing excellent urine output. BUN 66 with a creatinine of 1.2 and continues to have swelling in lower extremities. Sodium levels at 139. White cell count is at 9.2 with a hemoglobin of 15.1. Antibiotic coverage with doxycycline and ID is on the case. The cultures from the wound showed multidrug-resistant Acinetobacter. Patient was evaluated today on 05/11/2024, presently on BiPAP, intermittently on 3 L nasal cannula, continues to have cough wheezing and shortness of breath, on physical examination he sounded a bit bronchospastic, patient remains on antibiotics/doxycycline as per ID patient had history of multidrug-resistant Acinetobacter. Pulmonary hernandez patient is on proper bronchodilators is also on proper diuretics, and on BiPAP. Being followed by infectious disease for his chronic right lower extremity cellulitis.WBC count is 9.2 electrolytes are normal BUN is 66 creatinine 1.28 BNP level is 3060 Patient was evaluated today on 05/12/2024, complaining again about his multiple issues including chronic shortness of breath and about his lower extremities and ongoing right lower extremity cellulitis and nonhealing ulcers in the right l ower extremity. Pulmonary hernandez patient remains on diuretics remains on oxygen remains on BiPAP remains on bronchodilators and steroids. Nonetheless patient continues to have shortness of breath at rest and on exertion labs today were all reviewed blood sugar was noted to be 315 hence I cut down his methylprednisolone to 40 mg IV push every 8 hours. Reevaluate today on 05/13/2024, patient is on BiPAP, quite sleepy, last night had some worsening shortness of breath, I recommended Decadron I also recommended Lasix, chest x-ray was also noted, ABG was noted, actually his workup does not seem to be remarkable and his ABG is expected to be as such. With relatively high pCO2 but he is compensating metabolically well maintaining a pH of 7.32. ABG showed a pO2 of 114 pCO2 85 pH of 7.32 chest x-ray did show minimal pulmonary edema/interstitial pulmonary vascular congestion but he did receive Lasix and he is on diuretics maintenance Reevaluate today on 05/14/2024, patient is sitting at the edge of the bed, on BiPAP, does not seem to be in distress, however he continues to complain of shor tness of breath all the time, continues to complain of right-sided foot pain, yesterday patient was evaluated again by the a team and did not feel that the patient needs to be admitted to the ICU. Patient did receive steroids and diuretics, and he seems to be doing fairly well except for his ongoing complaints of being short of breath and having pain. Repeat ABG yesterday showed a pO2 of 104 pCO2 87 pH of 7.35 and that basically about his baseline. FiO2 could be cut down to 35% patient remains on diuretics for chronic diastolic congestive heart failure and he is maximal on bronchodilators Patient was seen today on 05/15/2024, patient is basically about the same. On BiPAP, FiO2, down from 40% to 35% based on his last ABG. Continues to have intermittent episodes of shortness of breath and chronic pain in right lower extremity. Patient remains on bronchodilators antibiotics, diuretics, no major issue or change in the last 24 hours. No labs done today except a blood sugar of 127. Patient was seen today on 05/16/2024, basically about the same, not much has changed over the last few days, remains intermittently on BiPAP, FiO2 down to 35%, patient continues to complain of shortness of breath with any activity, continues to complain of right foot pain. Patient is maximal on bro nchodilators, antibiotics, steroids, I do not believe much more can be added, and the patient was made aware of the situation that this is the best he is going to get. Labs today showed WBC count of 15.2 hemoglobin is 16.0 bicarb is 54, BUN is 69 creatinine 1.29 Patient was evaluated for, continues to have shortness of breath with any activity, occasional cough, patient is intermittently on BiPAP alternating with nasal cannula. Not much of a change in the last 24 hours, considering his bicarb is getting worse, I am recommending that we replace one of the doses of Lasix with Diamox.WBC 16.4 hemoglobin 15.6 electrolytes are normal except for bicarb of 60 BUN is 69 creatinine 1.64 Progress note dated May 18, 2024. 59-year-old male with a history of acute on chronic respiratory failure. The patient is currently on BiPAP, with settings of 12/5, 35%. In addition he wears nasal cannula at 3 L. No IV fluids. The patient is chronically lethargic, and somnolent. This is because of his chronic respiratory failure. Current laboratory includes a white count 10.7, hemoglobin 15.5, hematocrit 50.6, and platelet count 81,000. Sodium 137, potassium 4.1, chlorides 81, CO2 53, BUN 59, creatinine 1.76. Glucose is 205. Calcium is 8.1. C-reactive protein 1.5, and procalcitonin level was normal at 0.14. Wound cultures were apparently positive for Acinetobacter. No recent chest x-ray. Progress note dated May 19, 2024. 59-year-old male who looks much older than his stated age. He is seen today in room 351. He is sitting on the side of the bed. The patient continues on BiPAP, with settings of 12/5, and 35%. He is doing the same today and, as he was yesterday. No new labs today, other than a glucose of 176. Leg wound from May 07, with positive for Acinetobacter. No recent chest x-ray to report. Progress note dated May 20, 2024. This is a 59-year-old male who is now been in the hospital for 13 days. The patient is seen today in room 351. He continues on BiPAP, with settings of 12/5, 35%. The patient is not receiving any IV fluids. The patient is sitting in a chair, next to his hospital bed. He is very lethargic, but does arouse. No new labs today other than a glucose of 184. Objective - Vital Signs Vital signs: Vital Signs Temp 97.3 F L 05/20/24 08:00 Pulse 75 05/20/24 08:00 Resp 18 05/20/24 08:00 BP 95/61 05/20/24 08:00 Pulse Ox 97 05/20/24 08:00 FiO2 35 05/20/24 00:42 Intake & Output 05/19/24 05/20/24 05/20/24 18:59 06:59 18:59 Intake Total 0 Balance 0 Weight 155.9 kg Intake: Oral 0 Other: Voiding Method Urinal - Exam No acute distress, much more awake and alert today. Sitting at the side of the bed. BiPAP mask in place. HEENT examination is grossly unremarkable. Neck supple. Full range of motion. No adenopathy thyromegaly or neck vein distention. Cardiovascular examination reveals regular rhythm rate. S1-S2 normal. No S3 or S4. No discernible murmur noted. Lungs reveal fairly diminished breath sounds. Scattered rhonchi. No wheezes. Breath sounds equal but diminished. Abdomen is obese, without masses. Extremities are intact. No cyanosis or clubbing. 1+ edema is noted. Skin reveals chronic venous stasis changes, with hyperpigmentation. Neurologic examination is brief but nonfocal. - Labs CBC & Chem 7: 05/18/24 06:21 05/18/24 06:21 Labs: Abnormal Lab Results - Last 24 Hours (Table) 05/19/24 05/19/24 05/20/24 Range/Units 16:36 20:02 06:08 POC Glucose (mg/dL) 232 H 240 H 162 H (70-110) mg/dL 05/20/24 Range/Units 11:21 POC Glucose (mg/dL) 184 H (70-110) mg/dL Assessment and Plan Assessment: Acute on chronic hypoxemic and hypercapnic respiratory failure, secondary to exacerbation of chronic diastolic heart failure, as well as COPD exacerbation. Stage 4/very severe COPD, with an FEV1 that is 22% of predicted. Obstructive sleep apnea syndrome, noncompliant with noninvasive positive pressure ventilation. Morbid obesity, with BMI of 48.7 kg/m. Stage IIIa chronic kidney disease. History of chronic atrial fibrillation. Chronic lower extremity edema with multiple venous stasis ulcers. History of hypertension. History of hyperlipidemia. Former tobacco dependence. Severe cellulitis of the right lower extremity, S/P debridement. Plan: Plan dated May 18, 2024. The patient is maintained on BiPAP, and nasal cannula. We will add Symbicort to his regimen. The patient is not receiving any IV fluids. Labs, x-rays, medications are reviewed. Diamox was added by my partner yesterday. We will continue to follow make recommendations. Overall prognosis remains extremely poor. The patient has very severe/stage IV COPD. FEV1 is 22% of predicted. Not much more to add at this point. Plan dated May 19, 2024. The patient is seen today in room 351. He continues on BiPAP, with settings of 12/5, 35%. The patient is not receiving any IV fluids. Labs, x-rays, medications are reviewed. The patient is doing about the same today, as he was yesterday. The patient does have chronic lower extremity edema, with chronic venous stasis changes, and hyperpigmentation. His FEV1, is 22% of predicted. The patient's overall prognosis remains very poor. We will continue to follow make recommendations where appropriate. Plan dated May 28, 2024. The patient is doing about the same today as he was yesterday. He is sitting in a chair next to his hospital bed. He is on BiPAP, similar settings of 12/5, and 35%. The patient is not receiving any IV fluids. Labs, x-rays, and all medications are reviewed. The patient's overall prognosis remains guarded. No additional recommendations at this time. The patient is receiving maximal medical therapy. Time with Patient: Less than 30
--- NOTE | 2024-05-20 12:30 | P.DS ---
Providers Date of admission: 05/07/24 11:36 Expected date of discharge: 05/20/24 Attending physician: Danielle Urena Consults: 05/07/24 11:20 Consult Physician Urgent Consulting Provider: Rubén Gregory Consult Reason/Comments: anum Do you want consulting provider notified?: Already Contacted 05/07/24 11:37 Consult Physician Urgent Consulting Provider: Kamryn Galeana Consult Reason/Comments: leg wound Do you want consulting provider notified?: Yes Primary care physician: [facility] Course: Final diagnosis Acute on chronic hypoxic and hypercapnic respiratory failure requiring BiPAP. Chronically wears 3 L outpatient as well as BiPAP at night Acute COPD exacerbation Acute on chronic CHF with preserved EF Paroxysmal atrial fibrillation on anticoagulation with Eliquis CKD stage III Recent admission with right lower extremity cellulitis s/p debridement and wound cultures growing MRSA and Acinetobacter species. bilateral lower extremity venous stasis Obstructive sleep apnea Morbid history BMI 47.5 Hypertension Severe noncompliance to medication and treatment plans Diabetes type 2 insulin-dependent Hyperemia Prior history of smoking Depression GI and DVT prophylaxis. Patient is on full anticoagulation. Discharge disposition Patient is being discharged in a stable condition with guarded prognosis to [facility]. Patient will follow-up with Dr. Iverson in the outpatient setting upon discharge. Patient is to continue with doxycycline and wound care with outpatient follow-up with Dr. Galeana as scheduled. Patient is to follow-up with pulmonary and cardiology outpatient. Total time taken is greater than 35 minutes. Hospital course This is a 59-year-old male who was recently admitted with shortness of breath worsening over the last few days and acute COPD exacerbation as well as CHF exacerbation. Patient with multiple consultations following maintained on BiPAP and he chronically wears a BiPAP at home as well as 3 to 4 L via nasal cannula chronically. Patient is extremely obese and noncompliant with all medication and treatment plans. Patient is extremely noncompliant with fluid restrictions and needs to be constantly redirected regarding total restrictions of 1200 cc or less daily. Patient is maintained on torsemide and will continue a prednisone taper along with inhalers and onlwne-hay-hlsjs DuoNebs. Patient is to continue on BiPAP throughout the day as needed as well as 8P to 8 a every night. Patient is continued on local wound care of the lower extremity right side with Aquacel silver dressing changes along with Gonzalez wraps to bilateral lower extremities. Patient is maintained on doxycycline per infectious disease for recent history of MRSA infection of the right lower extremity and heel with cellulitis. Roney weston has chronic venous stasis of the lower extremities and extremely noncompliant as well with heart healthy and consistent carb diet. Patient's blood sugars are elevated although more controlled on current regimen and will continue with sliding scale, long-acting, and Premeal insulins. Patient with significant weakness and multiple hospitalization has progressively become more weak and evaluated by physical therapy recommending rehab. Patient is agreeable and patient's insurance has approved rehab. Patient has been cleared by consultations for discharge with close outpatient follow-up. Please refer to other consultation notes for further HPI. Currently no reports of chest pain, reports continuous shortness of breath, denies palpitations. Patient is afebrile. Patient also reports pain of the right lower extremity and is maintained on [place] and was receiving Dilaudid in the hospital although given his respiratory demands and being too lethargic, patient is difficult to handle regarding pain control due to his increasing respiratory demands. No reports of nausea or vomiting and patient is tolerating diet. Patient will be going to [facility] today. Overall extremely poor and guarded prognosis and patient is an extremely high risk for readmissions due to his significant comorbidities, prolonged hospitalizations, and his overall noncompliance with medications and treatment plans. It is recommended that if patient requires rehospitalization that patient be transferred to a tertiary treatment center as patient has had multiple hospitalizations and no significant improvement regarding his multiple comorbidities. Patient has shown extreme clinical decline since November 2023. 05/18/2024 Patient is seen in follow-up with pulmonary and infectious disease following patient will continue Lamisil for a 6 weeks course along with Doxy for 7 days as ordered and also continued local wound care to the lower extremities with elevating while at rest. Patient has been started on Diamox in addition to torsemide and is to continue using hnbspc-pyg-ttazz nasal cannula and also BiPAP from 8P to 6 a as well as as needed. Patient with extensive end-stage COPD is at baseline per pulmonary and recommend to continue with prednisone taper along with egwzgl-cnx-lzopa DuoNebs and as needed along with inhalers. Overall prognosis remains extremely poor and guarded. Pollo 2023 Patient has received updated insurance authorization and approval to PENDING SALE TO [facility]. Breathing remains at baseline on BiPAP as well as 3 L nasal cannula to continue on DuoNeb treatments along with inhalers oaehxy-ejk-auyfp and also prednisone taper. Patient is to continue on BiPAP from 8P to 8 a as well as intermittently as needed during the day. Patient with significant comorbidities and noncompliance to medications, treatment plans and follow-up strongly recommend palliative care and/or possible long-term care as patient is unable to care for himself. Patient has been instructed to follow-up with primary care provider along with consultations including cardiology and pulmonary. Recommend repeat CMP in 2 to 3 days to monitor kidney functions and electrolytes. Recommend continued fluid restrictions and patient is also maintained on torsemide as well as Diamox. Patient may need additional Lasix therapy once kidney functions have improved. Overall prognosis remains extremely poor and guarded at this time. Physical exam: Gen: This is a 59-year-old male who is awake, alert and oriented, well- developed, elderly appearing, unkempt, morbidly obese, ill-appearing HEENT: Head is atraumatic, normocephalic. Pupils equal, round. Sclerae is anicteric. NECK: Supple. No JVD. No lymphadenopathy. No thyromegaly. LUNGS: Diminished breath sounds bilaterally with some scattered rhonchi. Faint expiratory wheezing noted. No intercostal retractions. HEART: S1, S2 are muffled ABDOMEN: Soft. Morbidly obese, protuberant bowel sounds are present. No masses. No tenderness. EXTREMITIES: Chronic lower pedal edema and discoloration. No calf tenderness. NEUROLOGICAL: Patient is awake, alert and oriented x3. Cranial nerves 2 through 12 are grossly intact. Diffusely weak Please refer to medication reconciliation sheet for a list of medications. The impression and plan of care has been dictated by Shayna Garcia, Nurse Practitioner as directed. Dr. Ja MD I have performed a history and examination and MDM of this patient, discussed the same with the dictator, and agree with the dictator's assessment and plan as written ,documented as a scribe. Based on total visit time, I have performed more than 50% of the visit. Patient Condition at Discharge: Fair Plan - Discharge Summary New Discharge Prescriptions: New Hydrocortisone Cream [Hydrocortisone 1% Cream] 1 applic TOPICAL BID PRN each PRN Reason: Skin Irritation HYDROcodone/APAP 10-325MG [Bur[place] 10-325] 1 each PO Q6HR PRN #4 tab PRN Reason: Pain Terbinafine [LamISIL] 250 mg PO DAILY tab INSULIN ASPART (NovoLOG) [NovoLOG (formulary)] 5 unit SQ AC-TID each acetaZOLAMIDE [Diamox] 250 mg PO BID tab Ipratropium-Albuterol Nebulize [Duoneb 0.5 mg-3 mg/3 ml Soln] 3 ml INHALATION Q2H PRN each PRN Reason: Shortness Of Breath Nystatin 100,000 Unit/ml Susp [Mycostatin Oral Susp] 500,000 unit PO QID ml Budesonide-Formot 160-4.5 Mcg [Symbicort 160-4.5 Mcg Inhaler] 2 puff INHALATION RT-BID each Continue hydrOXYzine pamoate [Vistaril] 50 mg PO HS PRN PRN Reason: ANXIETY/INSOMNIA Dapagliflozin Propanediol [Farxiga] 10 mg PO DAILY 30 Days #30 tab Amiodarone [Cordarone] 400 mg PO BID tab Metoprolol Tartrate [Lopressor] 150 mg PO BID tab Prochlorperazine [Compazine] 10 mg PO Q8H PRN PRN Reason: Nausea And Vomiting Naloxone HCl [Narcan] 4 mg NASAL DIRECTED PRN PRN Reason: overdose Tamsulosin [Flomax] 0.4 mg PO DAILY Acetaminophen [Tylenol] 650 mg PO Q6H PRN PRN Reason: Fever And/ Or Pain Torsemide [Demadex] 10 mg PO DAILY SILVER sulfADIAZINE Cream [Silvadene 1% Cream] 1 applic TOPICAL DAILY each ALPRAZolam [Xanax] 0.25 mg PO TID #6 tab Atorvastatin [Lipitor] 10 mg PO HS busPIRone HCl [Buspar] 5 mg PO TID 30 Days #90 tab Apixaban [Eliquis] 5 mg PO BID Finasteride [Proscar] 5 mg PO DAILY Sertraline [Zoloft] 50 mg PO DAILY Albuterol Sulfate [Ventolin HFA] 1 puff INHALATION RT-BID Spironolactone [Aldactone] 12.5 mg PO DAILY tab diphenhydrAMINE [Benadryl] 25 mg PO BID PRN cap PRN Reason: Itching Ipratropium-Albuterol Nebulize [Duoneb 0.5 mg-3 mg/3 ml Soln] 3 ml INHALATION RT-QID each Ipratropium-Albuterol Nebulize [Duoneb 0.5 mg-3 mg/3 ml Soln] 3 ml INHALATION RT-Q2H PRN each PRN Reason: Shortness Of Breath Or Wheezing Insulin Detemir (Levemir) [Levemir] 15 unit SQ BID@0700,2100 each predniSONE See Taper PO DIRECTED #30 tab Pantoprazole [Protonix] 40 mg PO AC-BID tab Calcium Carbonate [Tums] 1,000 mg PO QID PRN tab PRN Reason: Heartburn INSULIN ASPART (NovoLOG) [NovoLOG (formulary)] See Protocol SQ ACHS 0.9 % Sodium Chloride [Sodium Chloride Flush] 10 ml IV BID Doxycycline [Vibramycin] 100 mg PO BID 10 Days #20 capsule Pregabalin [Lyrica] 150 mg PO BID #6 cap Discontinued Cephalexin [Keflex] 500 mg PO Q6HR 10 Days #40 cap Budesonide-Formot 160-4.5 Mcg [Symbicort 160-4.5 Mcg Inhaler] 2 puff INHALATION RT-BID each HYDROcodone/APAP 7.5-325MG [[place] 7.5-325] 1 tab PO Q6HR PRN #6 tab PRN Reason: Pain Discharge Medication List hydrOXYzine pamoate [Vistaril] 50 mg PO HS PRN 07/09/22 [History] Atorvastatin [Lipitor] 10 mg PO HS 08/01/22 [History] Dapagliflozin Propanediol [Farxiga] 10 mg PO DAILY 30 Days #30 tab 09/10/22 [Rx] busPIRone HCl [Buspar] 5 mg PO TID 30 Days #90 tab 09/10/22 [Rx] Apixaban [Eliquis] 5 mg PO BID 12/12/23 [History] Finasteride [Proscar] 5 mg PO DAILY 12/12/23 [History] Sertraline [Zoloft] 50 mg PO DAILY 12/12/23 [History] Albuterol Sulfate [Ventolin HFA] 1 puff INHALATION RT-BID 04/04/24 [History] Amiodarone [Cordarone] 400 mg PO BID tab 04/22/24 [Rx] Calcium Carbonate [Tums] 1,000 mg PO QID PRN tab 04/22/24 [Rx] Insulin Detemir (Levemir) [Levemir] 15 unit SQ BID@0700,2100 each 04/22/24 [Rx] Ipratropium-Albuterol Nebulize [Duoneb 0.5 mg-3 mg/3 ml Soln] 3 ml INHALATION RT-Q2H PRN each 04/22/24 [Rx] Ipratropium-Albuterol Nebulize [Duoneb 0.5 mg-3 mg/3 ml Soln] 3 ml INHALATION RT-QID each 04/22/24 [Rx] Metoprolol Tartrate [Lopressor] 150 mg PO BID tab 04/22/24 [Rx] Pantoprazole [Protonix] 40 mg PO AC-BID tab 04/22/24 [Rx] Spironolactone [Aldactone] 12.5 mg PO DAILY tab 04/22/24 [Rx] diphenhydrAMINE [Benadryl] 25 mg PO BID PRN cap 04/22/24 [Rx] predniSONE See Taper PO DIRECTED #30 tab 04/22/24 [Rx] 0.9 % Sodium Chloride [Sodium Chloride Flush] 10 ml IV BID 05/01/24 [History] Acetaminophen [Tylenol] 650 mg PO Q6H PRN 05/01/24 [History] INSULIN ASPART (NovoLOG) [NovoLOG (formulary)] See Protocol SQ ACHS 05/01/24 [History] Naloxone HCl [Narcan] 4 mg NASAL DIRECTED PRN 05/01/24 [History] Prochlorperazine [Compazine] 10 mg PO Q8H PRN 05/01/24 [History] Tamsulosin [Flomax] 0.4 mg PO DAILY 05/01/24 [History] Torsemide [Demadex] 10 mg PO DAILY 05/01/24 [History] Doxycycline [Vibramycin] 100 mg PO BID 10 Days #20 capsule 05/05/24 [Rx] SILVER sulfADIAZINE Cream [Silvadene 1% Cream] 1 applic TOPICAL DAILY each 05/05/24 [Rx] ALPRAZolam [Xanax] 0.25 mg PO TID #6 tab 05/15/24 [Rx] HYDROcodone/APAP 10-325MG [[place] 10-325] 1 each PO Q6HR PRN #4 tab 05/15/24 [Rx] Hydrocortisone Cream [Hydrocortisone 1% Cream] 1 applic TOPICAL BID PRN each 05/15/24 [Rx] INSULIN ASPART (NovoLOG) [NovoLOG (formulary)] 5 unit SQ AC-TID each 05/15/24 [Rx] Pregabalin [Lyrica] 150 mg PO BID #6 cap 05/15/24 [Rx] Budesonide-Formot 160-4.5 Mcg [Symbicort 160-4.5 Mcg Inhaler] 2 puff INHALATION RT-BID each 05/18/24 [Rx] Ipratropium-Albuterol Nebulize [Duoneb 0.5 mg-3 mg/3 ml Soln] 3 ml INHALATION Q2H PRN each 05/18/24 [Rx] Nystatin 100,000 Unit/ml Susp [Mycostatin Oral Susp] 500,000 unit PO QID ml 05/18/24 [Rx] Terbinafine [LamISIL] 250 mg PO DAILY tab 05/18/24 [Rx] acetaZOLAMIDE [Diamox] 250 mg PO BID tab 05/18/24 [Rx] Follow up Appointment(s)/Referral(s): Sita Waterman MD [STAFF PHYSICIAN] - 1 Week Aron Lua MD [STAFF PHYSICIAN] - 1 Week Parish Iverson MD [Primary Care Provider] - 1-2 days Activity/Diet/Wound Care/Special Instructions: Patient is going to [facility] as tolerated Bipap at hs and prn 12/5 with 35% FI02 - wear from 8pm to 8am O2 3L/NC 24/7 Maintain O2 sats between 87% and 92% Strongly reinforce fluid restrictions of 1200 cc daily Continue prednisone taper Follow-up with primary care provider on discharge Follow-up with pulmonary outpatient Follow-up with cardiology outpatient Continue on doxycycline Continue with local wound care to the lower extremities on the right with dry Aquacel silver dressings daily and if becoming soiled and Gonzalez wraps from the toes up to the knees daily Elevate lower extremities while at rest Continue monitoring blood sugars and continue with heart healthy diabetic diet NovoLog sliding scale 0-150 equals 0 units 151-200 equals 2 units 201-250 equals 4 units 251-300 equals 6 units 301-350 equals 8 units 351-400 equals 10 units Please notify provider if blood sugar is 400 or above Continue with long-acting as well as Premeal insulins in addition to sliding scale Discharge Disposition: TRANSFER TO SNF/ECF
[2024-05-20 14:20] VITALS: BP 94/59
[2024-05-20 15:33] VITALS: RESP 17
[2024-05-20 15:40] VITALS: PULSE 80
[2024-05-20 16:20] LABS: Glucose,Whole Blood 215 mg/dL (70-110)
--- NOTE | 2024-05-21 08:59 | P.PN ---
Subjective Progress Note Date: 05/20/24 Principal diagnosis: Reason for follow-up is right lower extremity wound and cellulitis Patient is a 59-year-old male with a past medical history significant for hypertension hyperlipidemia COPD heart failure with asthma atrial fibrillation recently admitted to the hospital with the patient did have right lower extremity infected hematoma presenting back to the hospital for worsening shortness of breath. On today's evaluation that is 05/20/2024, patient has been afebrile, patient remains to be BiPAP dependent still complaining about hard to breathe but denies any chest pain or cough no nausea noted no abdominal pain or pain to the right lower extremity. No new lab has been obtained today Objective - Vital Signs Vital signs: Vital Signs Temp 97.3 F L 05/20/24 08:00 Pulse 84 05/20/24 15:31 Resp 17 05/20/24 15:31 BP 94/59 05/20/24 14:00 Pulse Ox 96 05/20/24 14:00 FiO2 35 05/20/24 15:33 Intake & Output 05/19/24 05/20/24 05/20/24 18:59 06:59 18:59 Intake Total 240 Balance 240 Weight 155.9 kg Intake: Oral 240 Other: Voiding Method Urinal - Exam GENERAL DESCRIPTION: An middle-age male up in bed in no distress RESPIRATORY SYSTEM: Unlabored breathing , decreased breath sounds at bases HEART: S1 S2 regular rate and rhythm , ABDOMEN: Soft , no tenderness EXTREMITIES: Diffuse swelling to the lower extremity no drainage of the right leg - Labs CBC & Chem 7: 05/18/24 06:21 05/18/24 06:21 Labs: Abnormal Lab Results - Last 24 Hours (Table) 05/19/24 05/19/24 05/20/24 Range/Units 16:36 20:02 06:08 POC Glucose (mg/dL) 232 H 240 H 162 H (70-110) mg/dL 05/20/24 Range/Units 11:21 POC Glucose (mg/dL) 184 H (70-110) mg/dL Assessment and Plan (1) Wound of right lower extremity Status: Acute Code(s): S81.801A - UNSPECIFIED OPEN WOUND, RIGHT LOWER LEG, INITIAL ENCOUNTER SNOMED Code(s): 24840922841420628 (2) Cellulitis of right lower extremity Status: Acute Code(s): L03.115 - CELLULITIS OF RIGHT LOWER LIMB SNOMED Code(s): 17136652014650676 (3) Onychomycosis due to dermatophyte Status: Acute Code(s): B35.1 - TINEA UNGUIUM SNOMED Code(s): 962664664 (4) Leukocytosis Status: Acute Code(s): D72.829 - ELEVATED WHITE BLOOD CELL COUNT, UNSPECIFIED SNOMED Code(s): 561607870 Plan: 1patient presented to hospital with increasing shortness of breath possible re lated underlying cardiopulmonary condition clinically not behaving as pneumonia with no fever or elevated white count. Pulmonary has been consulted for further management 2patient with a recent right lower extremity infected hematoma s/p drainage with a wound with developed deep wound with slough tissue and no significant surrounding redness 3-patient local culture did grew drug-resistant Acinetobacter possible colonizer as the patient not running any fever white count is normal and there was no evidence of any redness or warmth 4patient to continue-local wound care to the right lower extremity wound with the dry Aquacel silver dressing and plan is to continue with oral doxycycline x 7 days on discharge 5-the patient did have extensive bilateral feet toe fungal infection for the patient to continue with Lamisil x 6 weeks on discharge, need to monitor his LFT closely in the outpatient setting 6worsening white count possible oropharyngeal candidiasis, plan is to continue with nystatin swish and swallow x 7 days on discharge Dictation was produced using [employer] dictation software. please excuse any grammatical, word or spelling errors. Time with Patient: Less than 30
--- NOTE | 2024-05-22 23:47 | P.PN ---
Subjective Progress Note Date: 05/08/24 Patient is a 59-year-old male with a past medical history of atrial fibrillation on anticoagulation with Eliquis, chronic CHF, COPD, hypertension, hyperlipidemia, obstructive sleep apnea, depression, prior history of smoking and morbid obesity BMI 47.5. Patient was recently discharged to [facility] 04/04/2024 after prolonged hospitalization due to right lower extremity cellulitis/abscess and wound. Patient was discharged with a course of antibiotics of Keflex and doxycycline. Patient presented back to hospital due to worsening shortness of breath. Patient initially presented to [facility]. Chest x-ray showed small bilateral pleural effusions and CHF. Patient was pl aced on BiPAP. Denied any complaints of fever or chills. Complains of right lower extremity pain. Does have cough without any sputum production. Laboratory showed WBC 4.2 hemoglobin 13.9 and platelets 163 sodium 136 potassium 5.3 chloride 100 bicarb is 34 BUN 37 creatinine 0.88 and blood sugar 159 and calcium 8.1. Creatinine 0.9. Patient was given a dose of IV Solu-Medrol and IV Levaquin in the ER. 05/08/2024 Patient is awake alert and oriented x 3. Currently requiring 3 L oxygen via nasal cannula. Off BiPAP. Patient was also started on IV Lasix. No complaints of fever or chills. Breathing status is better. No complaints of chest pain. Laboratory data showed WBC 6.7 hemoglobin 14.6 and platelets 175 sodium 138 potassium 5.4 with slight hemolysis bicarb is 34 BUN 47 and creatinine 0.97 and blood sugar is 156 and proBNP level is 3060. Pulmonary is on board. Chest x-ray today showed cortical correlation recommended for volume overload or congestive heart failure. Small left pleural effusion. Current medications reviewed. Objective - Vital Signs Vital signs: Vital Signs Temp 98.2 F 05/07/24 10:15 Pulse 81 05/08/24 08:04 Resp 15 05/08/24 07:09 BP 140/95 05/08/24 07:09 Pulse Ox 99 05/08/24 07:09 FiO2 50 05/08/24 07:52 Intake & Output 05/07/24 05/08/24 05/08/24 18:59 06:59 18:59 Weight 158.757 kg - Exam PHYSICAL EXAMINATION: Patient is lying lying in the bed. Awake alert and oriented. Currently on oxygen via 3 L nasal cannula HEENT: Normocephalic. Neck is supple. Pupils reactive. Nostrils clear. Oral cavity is moist. Neck reveals no JVD, carotid bruits, or thyromegaly. CHEST EXAMINATION: Trachea is central. Symmetrical expansion. Bibasilar diminished sounds. Expiratory wheezing. Scattered rhonchi. Nonlabored breat lj CARDIAC: Normal S1, S2 with no gallops. No murmurs ABDOMEN: Soft. Bowel sounds normal. No organomegaly. No abdominal bruits. Extremities: Bilateral lower extremity 3+ edema with right lower extremity wound on the lateral side of the colon.. No clubbing or cyanosis Neurologically awake, alert, oriented x3. Able to move all extremities. No gross focal deficits noted Skin: No rash or skin lesions. Psychiatric: Coperative. Nonsuicidal Musculoskeletal: No joint swelling or deformity. - Labs CBC & Chem 7: 05/18/24 06:21 05/18/24 06:21 Labs: Abnormal Lab Results - Last 24 Hours (Table) 05/07/24 05/07/24 05/08/24 Range/Units 18:01 18:01 04:32 RDW 16.0 H 16.0 H (11.5-15.5) % Lymphocytes # 0.2 L 0.4 L (1.0-4.8) k/uL Sodium 136 L (137-145) mmol/L Potassium 5.3 H (3.5-5.1) mmol/L Carbon Dioxide 34 H (22-30) mmol/L BUN 37 H (9-20) mg/dL Glucose 159 H (74-99) mg/dL Calcium 8.1 L (8.4-10.2) mg/dL 05/08/24 Range/Units 04:32 RDW (11.5-15.5) % Lymphocytes # (1.0-4.8) k/uL Sodium (137-145) mmol/L Potassium 5.4 H (3.5-5.1) mmol/L Carbon Dioxide 34 H (22-30) mmol/L BUN 47 H (9-20) mg/dL Glucose 156 H (74-99) mg/dL Calcium (8.4-10.2) mg/dL Assessment and Plan Assessment: Acute on chronic hypoxic and hypercapnic respiratory failure requiring BiPAP. Acute COPD exacerbation Acute on chronic CHF with preserved EF Paroxysmal atrial fibrillation on anticoagulation with Eliquis CKD stage III Recent admission with right lower extremity cellulitis s/p debridement and wound cultures growing MRSA and Acinetobacter species. Patient was discharged on Keflex and doxycycline. bilateral lower extremity venous stasis Obstructive sleep apnea Morbid history BMI 47.5 Hypertension Diabetes type 2 insulin-dependent Hyperemia Prior history of smoking Depression GI and DVT prophylaxis. Patient is on full anticoagulation. Plan: Patient is currently on BiPAP. Continue with IV Solu-Medrol and also started on Lasix 40 mg every 12 hourly. Follow-up proBNP level. Continue with DuoNebs and Symbicort. Follow-up repeat chest x-ray tomorrow. Continue with home medications and restart antibiotics. Insulin sliding scale and insulin regimen. Continue with pain management with [place] 7.5. Wound care is on board. ID and pulmonary is following.. Prognosis guarded at this time. Continue to follow closely. Time with Patient: Greater than 30
== END 2024-05-20 18:09 | DRG 133 ==
LOC: EC 10:11 → 3SCARD 11:36
PROVIDERS: ADMIT Internal Medicine; ATTEND Internal Medicine
PROC: 5A09357 Assistance with Respiratory Ventilation, Less than 24 Consecutive Hours, Continuous Positive Airway Pressure (ICD-10-PCS; principal; 2024-05-07)
DX: J96.21 Acute and chronic respiratory failure with hypoxia (principal); I13.0 Hypertensive heart and chronic kidney disease with heart failure and stage 1 through stage 4 chronic kidney disease, or unspecified chronic kidney disease; I48.0 Paroxysmal atrial fibrillation; I50.33 Acute on chronic diastolic (congestive) heart failure; G89.29 Other chronic pain; E78.5 Hyperlipidemia, unspecified; F32.A Depression, unspecified; B35.1 Tinea unguium; E66.01 Morbid (severe) obesity due to excess calories; G47.33 Obstructive sleep apnea (adult) (pediatric); I48.20 Chronic atrial fibrillation, unspecified; I83.009 Varicose veins of unspecified lower extremity with ulcer of unspecified site; I87.8 Other specified disorders of veins; J44.1 Chronic obstructive pulmonary disease with (acute) exacerbation; L97.919 Non-pressure chronic ulcer of unspecified part of right lower leg with unspecified severity; J96.22 Acute and chronic respiratory failure with hypercapnia; E11.22 Type 2 diabetes mellitus with diabetic chronic kidney disease; L03.115 Cellulitis of right lower limb; N18.31 Chronic kidney disease, stage 3a; Z99.81 Dependence on supplemental oxygen; Z68.42 Body mass index [BMI] 45.0-49.9, adult; Z86.14 Personal history of Methicillin resistant Staphylococcus aureus infection; Z79.01 Long term (current) use of anticoagulants; Z79.4 Long term (current) use of insulin; Z79.51 Long term (current) use of inhaled steroids; Z79.899 Other long term (current) drug therapy; Z87.891 Personal history of nicotine dependence; Z79.84 Long term (current) use of oral hypoglycemic drugs; Z91.119 Patient's noncompliance with dietary regimen due to unspecified reason; Z91.148 Patient's other noncompliance with medication regimen for other reason; Z91.199 Patient's noncompliance with other medical treatment and regimen due to unspecified reason; Z91.81 History of falling; Z96.641 Presence of right artificial hip joint
CPT/HCPCS: 36600; 71045; 80048; 80053; 82805; 83605; 83735; 83880; 84145; 85025; 86140; 87040; 87070; 87077; 87186; 87205; 94640; 94660; 94760; 96365; 96366; 96367; 96375; 99291

== ENCOUNTER 2024-06-04 14:40 | Inpatient (IN) | payer MEDICARE ==
--- NOTE | 2024-06-04 15:32 | ED ---
General Adult HPI - General Chief complaint: Recheck/Abnormal Lab/Rx Stated complaint: TONEY Time Seen by Provider: 06/04/24 14:55 Source: patient, RN notes reviewed, old records reviewed Mode of arrival: EMS - History of Present Illness Initial comments: This is a 59-year-old male who comes from the shelter because he was more lethargic and his pulse ox was low at the shelter. Patient normally is on 2 L of oxygen at home. Patient himself wakes up and has no complaints however he is quick to go back to sleep. Patient has had no history of fever or chills patient denied any chest pain or palpitation. Patient has any abdominal pain patient has nausea vomiting diarrhea - Related Data Home Medications Medication Instructions Recorded Confirmed hydrOXYzine pamoate [Vistaril] 50 mg PO HS PRN 07/09/22 06/04/24 Atorvastatin [Lipitor] 10 mg PO HS 08/01/22 06/04/24 Apixaban [Eliquis] 5 mg PO BID 12/12/23 06/04/24 Finasteride [Proscar] 5 mg PO DAILY 12/12/23 06/04/24 Sertraline [Zoloft] 50 mg PO DAILY 12/12/23 06/04/24 Naloxone HCl [Narcan] 4 mg NASAL DIRECTED PRN 05/01/24 06/04/24 Prochlorperazine [Compazine] 10 mg PO Q8H PRN 05/01/24 06/04/24 Tamsulosin [Flomax] 0.4 mg PO HS 05/01/24 06/04/24 Torsemide [Demadex] 10 mg PO DAILY 05/01/24 06/04/24 Acetaminophen [Tylenol 8 Hour] 650 mg PO Q6H PRN 06/04/24 06/04/24 Amiodarone [Cordarone] 200 mg PO DAILY 06/04/24 06/04/24 Pantoprazole [Protonix] 40 mg PO DAILY 06/04/24 06/04/24 Pregabalin [Lyrica] 50 mg PO BID 06/04/24 06/04/24 Spironolactone [Aldactone] 25 mg PO DAILY 06/04/24 06/04/24 oxyCODONE HCL/ACETAMINOPHEN 1 tab PO Q6HR PRN 06/04/24 06/04/24 [Percocet 7.5-325 mg] predniSONE 10 mg PO DAILY 06/04/24 06/04/24 Previous Rx's Medication Instructions Recorded Dapagliflozin Propanediol [Farxiga] 10 mg PO DAILY 30 Days #30 tab 09/10/22 busPIRone HCl [Buspar] 5 mg PO TID 30 Days #90 tab 09/10/22 Calcium Carbonate [Tums] 1,000 mg PO QID PRN tab 04/22/24 Insulin Detemir (Levemir) [Levemir] 15 unit SQ BID@0700,2100 each 04/22/24 Ipratropium-Albuterol Nebulize 3 ml INHALATION RT-Q2H PRN each 04/22/24 [Duoneb 0.5 mg-3 mg/3 ml Soln] Ipratropium-Albuterol Nebulize 3 ml INHALATION RT-QID each 04/22/24 [Duoneb 0.5 mg-3 mg/3 ml Soln] Metoprolol Tartrate [Lopressor] 150 mg PO BID tab 04/22/24 diphenhydrAMINE [Benadryl] 25 mg PO BID PRN cap 04/22/24 ALPRAZolam [Xanax] 0.25 mg PO TID #6 tab 05/15/24 INSULIN ASPART (NovoLOG) [NovoLOG 5 unit SQ AC-TID each 05/15/24 (formulary)] Budesonide-Formot 160-4.5 Mcg 2 puff INHALATION RT-BID each 05/18/24 [Symbicort 160-4.5 Mcg Inhaler] Terbinafine [LamISIL] 250 mg PO DAILY tab 05/18/24 acetaZOLAMIDE [Diamox] 250 mg PO BID tab 05/18/24 Allergies Allergy/AdvReac Type Severity Reaction Status Date / Time No Known Allergies Allergy Verified 06/04/24 15:55 Review of Systems ROS Statement: Those systems with pertinent positive or pertinent negative responses have been documented in the HPI. ROS Other: All systems not noted in ROS Statement are negative. 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 History of Any Multi-Drug Resistant Organisms: MRSA, Other MDRO Date of last positivie culture/infection: 11/15/22 MDRO Source:: Left Leg Past Surgical History: Hernia Repair, Joint Replacement, Orthopedic Surgery Additional Past Surgical History / Comment(s): RT ARMAND, rt foot SX, Past Anesthesia/Blood Transfusion Reactions: No Reported Reaction Past Psychological History: Depression Smoking Status: Former smoker Past Alcohol Use History: None Reported Past Drug Use History: None Reported - Past Family History Mother Family Medical History: No Reported History General Exam - General Exam Comments Initial Comments: GENERAL: Patient is well-developed and well-nourished. Patient is nontoxic and well- hydrated and is in no acute distress. Patient is very tired and goes to sleep quickly. Once I wake the patient up he is alert and oriented. ENT: Neck is soft and supple. No significant lymphadenopathy is noted. Oropharynx is clear. Moist mucous membranes. Neck has full range of motion without eliciting any pain. EYES: The sclera were anicteric and conjunctiva were pink and moist. Extraocular movements were intact and pupils were equal round and reactive to light. Eyelids were unremarkable. PULMONARY: Unlabored respirations. Good breath sounds bilaterally. No audible rales rhonchi or wheezing was noted. CARDIOVASCULAR: There is a regular rate and rhythm without any murmurs gallops or rubs. ABDOMEN: Soft and nontender with normal bowel sounds. SKIN: Skin is clear with no lesions or rashes and otherwise unremarkable. NEUROLOGIC: Patient is alert and oriented x3. Cranial nerves II through XII are grossly intact. Motor and sensory are also intact. Normal speech, volume and content. Symmetrical smile. MUSCULOSKELETAL: Patient has chronic cellulitis of both legs and he just had both legs wrapped up from the foot all the way to the knee and at this point in time I did not unwrap them but he has no complaints of leg pain. LYMPHATICS: No significant lymphadenopathy is noted PSYCHIATRIC: Normal psychiatric evaluation. Course Vital Signs 06/04/24 06/04/24 06/04/24 14:51 15:05 16:00 Temperature 98 F Pulse Rate 75 74 Pulse Rate [ 71 Dobby Looms Pegger ] Respiratory 22 22 18 Rate Blood Pressure 104/62 106/62 O2 Sat by Pulse 95 89 L Oximetry Fraction of Inspired Oxygen (FIO2) 06/04/24 06/04/24 06/04/24 16:14 16:17 16:23 Temperature Pulse Rate 74 69 Pulse Rate [ Dobby Looms Pegger ] Respiratory 18 26 H 24 Rate Blood Pressure 121/78 102/80 O2 Sat by Pulse 94 L 94 L Oximetry Fraction of Inspired Oxygen (FIO2) 06/04/24 06/04/24 06/04/24 16:42 17:06 17:11 Temperature Pulse Rate 66 69 Pulse Rate [ Dobby Looms Pegger ] Respiratory 20 20 20 Rate Blood Pressure 111/83 126/79 O2 Sat by Pulse 95 98 Oximetry Fraction of Inspired Oxygen (FIO2) 06/04/24 06/04/24 06/04/24 17:42 18:00 18:14 Temperature Pulse Rate 75 64 Pulse Rate [ Dobby Looms Pegger ] Respiratory 20 20 Rate Blood Pressure 119/82 103/58 O2 Sat by Pulse 95 93 L Oximetry Fraction of 35 35 Inspired Oxygen (FIO2) Medical Decision Making - Medical Decision Making EKG is interpreted by myself. EKG shows atrial fibrillation at 66 bpm QRS is 152 QT interval is 455 QTc is 468. Patient's EKG shows no ST segment elevation or depression Was pt. sent in by a medical professional or institution ([facility] Fung, ANESTHETIC ASSISTANT, urgent care, hospital, or shelter...) When possible be specific @ -[No] Did you speak to anyone other than the patient for history (EMS, parent, family, police, friend...)? What history was obtained from this source @ -[No] Did you review nursing and triage notes (agree or disagree)? Why? @ -[I reviewed and agree with nursing and triage notes] Were old charts reviewed (outside hosp., previous admission, EMS record, old EKG, old radiological studies, urgent care reports/EKG's, shelter records)? Report findings @ -[No old charts were reviewed] Differential Diagnosis? @ -Differential Dyspnea: Coronary syndrome, arrhythmia, tamponade, asthma, COPD, pulmonary embolism, pneumonia, pneumothorax, pulmonary effusion, anaphylaxis, diabetic ketoacidosis, flailed chest, pulmonary contusion, diaphragmatic rupture, anemia, neuromuscular, this is not meant to be an all-inclusive list. EKG interpreted by me (3pts min.). @ -[As above] X-rays interpreted by me (1pt min.). @ -Chest x-ray shows pulmonary edema CT interpreted by me (1pt min.). @ -[None done] U/S interpreted by me (1pt. min.). @ -[None done] What testing was considered but not performed or refused? (CT, X-rays, U/S, labs)? Why? @ -[None] What meds were considered but not given or refused? Why? @ -[None] Did you discuss the management of the patient with other professionals (professionals i.e. , PA, ANESTHETIC ASSISTANT, lab, RT, psych nurse, secondary social studies teacher, principal clerk, teacher, accounts officer, family independence case manager)? Give summary @ -[facility] the patient and wrote admitting orders Was smoking cessation discussed for >3mins.? @ -[No] Was critical care preformed (if so, how long)? @ -35 minutes Were there social determinants of health that impacted care today? How? (Homelessness, low income, unemployed, alcoholism, drug addiction, transpor tation, low edu. Level, literacy, decrease access to med. care, alf, rehab)? @ -[No] Was there de-escalation of care discussed even if they declined (Discuss DNR or withdrawal of care, Hospice)? DNR status @ -[No] What co-morbidities impacted this encounter? (DM, HTN, Smoking, COPD, CAD, Cancer, CVA, ARF, Chemo, Hep., AIDS, mental health diagnosis, sleep apnea, morbid obesity)? @ -[None] Was patient admitted / discharged? Hospital course, mention meds given and route, prescriptions, significant lab abnormalities, going to OR and other pertinent info. @ -Patient was hypercapnic and so I started the patient on BiPAP and also had pulmonary edema so I gave the patient Lasix. Patient also seemed to be very obtunded with pinpoint pupils so he did get Narcan and it did help revive the patient to come back to baseline and speak with us and his mother. Undiagnosed new problem with uncertain prognosis? @ -[No] Drug Therapy requiring intensive monitoring for toxicity (Heparin, Nitro, Insulin, Cardizem)? @ -[No] Were any procedures done? @ -[No] Diagnosis/symptom? @ -Hypercapnia Acute, or Chronic, or Acute on Chronic? @ -[default] Uncomplicated (without systemic symptoms) or Complicated (systemic symptoms)? @ -Complicated Side effects of treatment? @ -[No] Exacerbation, Progression, or Severe Exacerbation? @ -[No] Poses a threat to life or bodily function? How? (Chest pain, [place], ID, pneumonia, PE, COPD, DKA, ARF, appy, cholecystitis, CVA, Diverticulitis, Homicidal, Suicidal, threat to staff... and all critical care pts) @ -Yes this can lead to lethargy decreased respiratory rate and Diagnosis/symptom? @ -Pulmonary edema Acute, or Chronic, or Acute on Chronic? @ -Acute Uncomplicated (without systemic symptoms) or Complicated (systemic symptoms)? @ -Complicate Side effects of treatment? @ -[none] Exacerbation, Progression, or Severe Exacerbation] @ -[no] Poses a threat to life or bodily function? @ -Yes this can lead to hypoxia and endorgan dysfunction - Lab Data Result diagrams: 06/04/24 15:50 06/04/24 15:50 Lab Results 06/04/24 06/04/24 06/04/24 Range/Units 15:50 15:50 15:50 WBC 5.3 (3.8-10.6) k/uL RBC 4.72 (4.30-5.90) m/uL Hgb 13.6 (13.0-17.5) gm/dL Hct 44.9 (39.0-53.0) % MCV 95.1 (80.0-100.0) fL MCH 28.8 (25.0-35.0) pg MCHC 30.3 L (31.0-37.0) g/dL RDW 18.1 H (11.5-15.5) % Plt Count 144 L D (150-450) k/uL MPV 8.9 Neutrophils % 81 % Lymphocytes % 7 % Monocytes % 7 % Eosinophils % 3 % Basophils % 1 % Neutrophils # 4.3 (1.3-7.7) k/uL Lymphocytes # 0.3 L (1.0-4.8) k/uL Monocytes # 0.4 (0-1.0) k/uL Eosinophils # 0.2 (0-0.7) k/uL Basophils # 0.0 (0-0.2) k/uL Hypochromasia Marked Poikilocytosis Slight Anisocytosis Slight Macrocytosis Slight PT 10.8 (10.0-12.5) sec INR 1.0 (<1.2) APTT 25.3 (22.0-30.0) sec VBG pH (7.31-7.41) VBG pCO2 (37-51) mmHg VBG HCO3 (24-28) mmol/L Sodium 138 (137-145) mmol/L Potassium 4.6 (3.5-5.1) mmol/L Chloride 97 L (98-107) mmol/L Carbon Dioxide 39 H (22-30) mmol/L Anion Gap 2 mmol/L BUN 55 H (9-20) mg/dL Creatinine 1.81 H (0.66-1.25) mg/dL Est GFR (CKD-EPI)AfAm 46 (>60 ml/min/1.73 sqM) Est GFR (CKD-EPI)NonAf 39 (>60 ml/min/1.73 sqM) Glucose 155 H (74-99) mg/dL POC Glucose (mg/dL) (70-110) mg/dL POC Glu Parts Cataloguer ID Plasma Lactic Acid Ankur (0.7-2.0) mmol/L Calcium 8.1 L (8.4-10.2) mg/dL Magnesium 2.5 H (1.6-2.3) mg/dL Total Bilirubin 0.4 (0.2-1.3) mg/dL AST 21 (17-59) U/L ALT 29 (4-49) U/L Alkaline Phosphatase 83 (38-126) U/L Troponin I (0.000-0.034) ng/mL NT-Pro-B Natriuret Pep pg/mL Total Protein 5.9 L (6.3-8.2) g/dL Albumin 3.5 (3.5-5.0) g/dL Urine Color Urine Appearance (Clear) Urine pH (5.0-8.0) Ur Specific [place] (1.001-1.035) Urine Protein (Negative) Urine Glucose (UA) (Negative) Urine Ketones (Negative) Urine Blood (Negative) Urine Nitrite (Negative) Urine Bilirubin (Negative) Urine Urobilinogen (<2.0) mg/dL Ur Leukocyte Esterase (Negative) Urine Opiates Screen (NotDetected) Ur Oxycodone Screen (NotDetected) Urine Methadone Screen (NotDetected) Ur Barbiturates Screen (NotDetected) U Tricyclic Antidepress (NotDetected) Ur Phencyclidine Scrn (NotDetected) Ur Amphetamines Screen (NotDetected) U Methamphetamines Scrn (NotDetected) U Benzodiazepines Scrn (NotDetected) Urine Cocaine Screen (NotDetected) U Marijuana (THC) Screen (NotDetected) Influenza Type A (PCR) (Not Detectd) Influenza Type B (PCR) (Not Detectd) RSV (PCR) (Not Detectd) SARS-CoV-2 (PCR) (Not Detectd) 06/04/24 06/04/24 06/04/24 Range/Units 15:50 15:50 15:50 WBC (3.8-10.6) k/uL RBC (4.30-5.90) m/uL Hgb (13.0-17.5) gm/dL Hct (39.0-53.0) % MCV (80.0-100.0) fL MCH (25.0-35.0) pg MCHC (31.0-37.0) g/dL RDW (11.5-15.5) % Plt Count (150-450) k/uL MPV Neutrophils % % Lymphocytes % % Monocytes % % Eosinophils % % Basophils % % Neutrophils # (1.3-7.7) k/uL Lymphocytes # (1.0-4.8) k/uL Monocytes # (0-1.0) k/uL Eosinophils # (0-0.7) k/uL Basophils # (0-0.2) k/uL Hypochromasia Poikilocytosis Anisocytosis Macrocytosis PT (10.0-12.5) sec INR (<1.2) APTT (22.0-30.0) sec VBG pH (7.31-7.41) VBG pCO2 (37-51) mmHg VBG HCO3 (24-28) mmol/L Sodium (137-145) mmol/L Potassium (3.5-5.1) mmol/L Chloride (98-107) mmol/L Carbon Dioxide (22-30) mmol/L Anion Gap mmol/L BUN (9-20) mg/dL Creatinine (0.66-1.25) mg/dL Est GFR (CKD-EPI)AfAm (>60 ml/min/1.73 sqM) Est GFR (CKD-EPI)NonAf (>60 ml/min/1.73 sqM) Glucose (74-99) mg/dL POC Glucose (mg/dL) (70-110) mg/dL POC Glu Parts Cataloguer ID Plasma Lactic Acid Ankur 1.5 (0.7-2.0) mmol/L Calcium (8.4-10.2) mg/dL Magnesium (1.6-2.3) mg/dL Total Bilirubin (0.2-1.3) mg/dL AST (17-59) U/L ALT (4-49) U/L Alkaline Phosphatase (38-126) U/L Troponin I 0.023 (0.000-0.034) ng/mL NT-Pro-B Natriuret Pep pg/mL Total Protein (6.3-8.2) g/dL Albumin (3.5-5.0) g/dL Urine Color Urine Appearance (Clear) Urine pH (5.0-8.0) Ur Specific [place] (1.001-1.035) Urine Protein (Negative) Urine Glucose (UA) (Negative) Urine Ketones (Negative) Urine Blood (Negative) Urine Nitrite (Negative) Urine Bilirubin (Negative) Urine Urobilinogen (<2.0) mg/dL Ur Leukocyte Esterase (Negative) Urine Opiates Screen (NotDetected) Ur Oxycodone Screen (NotDetected) Urine Methadone Screen (NotDetected) Ur Barbiturates Screen (NotDetected) U Tricyclic Antidepress (NotDetected) Ur Phencyclidine Scrn (NotDetected) Ur Amphetamines Screen (NotDetected) U Methamphetamines Scrn (NotDetected) U Benzodiazepines Scrn (NotDetected) Urine Cocaine Screen (NotDetected) U Marijuana (THC) Screen (NotDetected) Influenza Type A (PCR) Not Detected (Not Detectd) Influenza Type B (PCR) Not Detected (Not Detectd) RSV (PCR) Not Detected (Not Detectd) SARS-CoV-2 (PCR) Not Detected (Not Detectd) 06/04/24 06/04/24 06/04/24 Range/Units 15:50 15:59 16:05 WBC (3.8-10.6) k/uL RBC (4.30-5.90) m/uL Hgb (13.0-17.5) gm/dL Hct (39.0-53.0) % MCV (80.0-100.0) fL MCH (25.0-35.0) pg MCHC (31.0-37.0) g/dL RDW (11.5-15.5) % Plt Count (150-450) k/uL MPV Neutrophils % % Lymphocytes % % Monocytes % % Eosinophils % % Basophils % % Neutrophils # (1.3-7.7) k/uL Lymphocytes # (1.0-4.8) k/uL Monocytes # (0-1.0) k/uL Eosinophils # (0-0.7) k/uL Basophils # (0-0.2) k/uL Hypochromasia Poikilocytosis Anisocytosis Macrocytosis PT (10.0-12.5) sec INR (<1.2) APTT (22.0-30.0) sec VBG pH 7.20 L* (7.31-7.41) VBG pCO2 89 H* (37-51) mmHg VBG HCO3 35 H (24-28) mmol/L Sodium (137-145) mmol/L Potassium (3.5-5.1) mmol/L Chloride (98-107) mmol/L Carbon Dioxide (22-30) mmol/L Anion Gap mmol/L BUN (9-20) mg/dL Creatinine (0.66-1.25) mg/dL Est GFR (CKD-EPI)AfAm (>60 ml/min/1.73 sqM) Est GFR (CKD-EPI)NonAf (>60 ml/min/1.73 sqM) Glucose (74-99) mg/dL POC Glucose (mg/dL) 244 H (70-110) mg/dL POC Glu Parts Cataloguer ID Heena La Plasma Lactic Acid Ankur (0.7-2.0) mmol/L Calcium (8.4-10.2) mg/dL Magnesium (1.6-2.3) mg/dL Total Bilirubin (0.2-1.3) mg/dL AST (17-59) U/L ALT (4-49) U/L Alkaline Phosphatase (38-126) U/L Troponin I (0.000-0.034) ng/mL NT-Pro-B Natriuret Pep pg/mL Total Protein (6.3-8.2) g/dL Albumin (3.5-5.0) g/dL Urine Color Colorless Urine Appearance Clear (Clear) Urine pH 5.0 (5.0-8.0) Ur Specific [place] 1.013 (1.001-1.035) Urine Protein Negative (Negative) Urine Glucose (UA) 4+ H (Negative) Urine Ketones Negative (Negative) Urine Blood Negative (Negative) Urine Nitrite Negative (Negative) Urine Bilirubin Negative (Negative) Urine Urobilinogen <2.0 (<2.0) mg/dL Ur Leukocyte Esterase Negative (Negative) Urine Opiates Screen (NotDetected) Ur Oxycodone Screen (NotDetected) Urine Methadone Screen (NotDetected) Ur Barbiturates Screen (NotDetected) U Tricyclic Antidepress (NotDetected) Ur Phencyclidine Scrn (NotDetected) Ur Amphetamines Screen (NotDetected) U Methamphetamines Scrn (NotDetected) U Benzodiazepines Scrn (NotDetected) Urine Cocaine Screen (NotDetected) U Marijuana (THC) Screen (NotDetected) Influenza Type A (PCR) (Not Detectd) Influenza Type B (PCR) (Not Detectd) RSV (PCR) (Not Detectd) SARS-CoV-2 (PCR) (Not Detectd) 06/04/24 06/04/24 06/04/24 Range/Units 16:06 17:00 17:08 WBC (3.8-10.6) k/uL RBC (4.30-5.90) m/uL Hgb (13.0-17.5) gm/dL Hct (39.0-53.0) % MCV (80.0-100.0) fL MCH (25.0-35.0) pg MCHC (31.0-37.0) g/dL RDW (11.5-15.5) % Plt Count (150-450) k/uL MPV Neutrophils % % Lymphocytes % % Monocytes % % Eosinophils % % Basophils % % Neutrophils # (1.3-7.7) k/uL Lymphocytes # (1.0-4.8) k/uL Monocytes # (0-1.0) k/uL Eosinophils # (0-0.7) k/uL Basophils # (0-0.2) k/uL Hypochromasia Poikilocytosis Anisocytosis Macrocytosis PT (10.0-12.5) sec INR (<1.2) APTT (22.0-30.0) sec VBG pH (7.31-7.41) VBG pCO2 (37-51) mmHg VBG HCO3 (24-28) mmol/L Sodium (137-145) mmol/L Potassium (3.5-5.1) mmol/L Chloride (98-107) mmol/L Carbon Dioxide (22-30) mmol/L Anion Gap mmol/L BUN (9-20) mg/dL Creatinine (0.66-1.25) mg/dL Est GFR (CKD-EPI)AfAm (>60 ml/min/1.73 sqM) Est GFR (CKD-EPI)NonAf (>60 ml/min/1.73 sqM) Glucose (74-99) mg/dL POC Glucose (mg/dL) 216 H (70-110) mg/dL POC Glu Parts Cataloguer ID Heena La Plasma Lactic Acid Ankur (0.7-2.0) mmol/L Calcium (8.4-10.2) mg/dL Magnesium (1.6-2.3) mg/dL Total Bilirubin (0.2-1.3) mg/dL AST (17-59) U/L ALT (4-49) U/L Alkaline Phosphatase (38-126) U/L Troponin I (0.000-0.034) ng/mL NT-Pro-B Natriuret Pep 9140 pg/mL Total Protein (6.3-8.2) g/dL Albumin (3.5-5.0) g/dL Urine Color Urine Appearance (Clear) Urine pH (5.0-8.0) Ur Specific [place] (1.001-1.035) Urine Protein (Negative) Urine Glucose (UA) (Negative) Urine Ketones (Negative) Urine Blood (Negative) Urine Nitrite (Negative) Urine Bilirubin (Negative) Urine Urobilinogen (<2.0) mg/dL Ur Leukocyte Esterase (Negative) Urine Opiates Screen Not Detected (NotDetected) Ur Oxycodone Screen Detected H (NotDetected) Urine Methadone Screen Not Detected (NotDetected) Ur Barbiturates Screen Not Detected (NotDetected) U Tricyclic Antidepress Not Detected (NotDetected) Ur Phencyclidine Scrn Not Detected (NotDetected) Ur Amphetamines Screen Not Detected (NotDetected) U Methamphetamines Scrn Not Detected (NotDetected) U Benzodiazepines Scrn Detected H (NotDetected) Urine Cocaine Screen Not Detected (NotDetected) U Marijuana (THC) Screen Not Detected (NotDetected) Influenza Type A (PCR) (Not Detectd) Influenza Type B (PCR) (Not Detectd) RSV (PCR) (Not Detectd) SARS-CoV-2 (PCR) (Not Detectd) Critical Care Time Critical Care Time: Yes Total Critical Care Time: 35 Disposition Clinical Impression: Hypercapnia, Pulmonary edema Disposition: ADMITTED IP TO THIS HOSP Referrals: Parish Iverson MD [Primary Care Provider] - 1-2 days Time of Disposition: 18:47
[2024-06-04 16:07] LABS: Glucose,Whole Blood 216 mg/dL (70-110)
[2024-06-04 16:07] LABS: Glucose,Whole Blood 244 mg/dL (70-110)
[2024-06-04 16:13] LABS: Anisocytosis Slight; Basophils % (A) 1 %; Eosinophils # (A) 0.2 k/uL (0-0.7); Eosinophils % (A) 3 %; HCT 44.9 % (39.0-53.0); HGB 13.6 gm/dL (13.0-17.5); Hypochromasia Marked; Lymphocytes # (A) 0.3 k/uL (1.0-4.8); Lymphocytes % (A) 7 %; MCH 28.8 pg (25.0-35.0); MCHC 30.3 g/dL (31.0-37.0); MCV 95.1 fL (80.0-100.0); Macrocytosis Slight; Mean Platelet Volume 8.9; Monocytes # (A) 0.4 k/uL (0-1.0); Monocytes % (A) 7 %; Neutrophils # (A) 4.3 k/uL (1.3-7.7); Neutrophils % (A) 81 %; Poikilocytosis Slight; RBC 4.72 m/uL (4.30-5.90); RDW 18.1 % (11.5-15.5); WBC 5.3 k/uL (3.8-10.6)
[2024-06-04] MEDS: NALOXONE 0.4 MG/ML 1 ML VIAL IVP STA ×2 (16:14→17:06)
[2024-06-04 16:19] LABS: Appearance,Urine Clear (Clear); Bilirubin,Urine Negative (Negative); Blood,Urine Negative (Negative); Color,Urine Colorless; Glucose,Urine (UA) 4+ (Negative); Ketones,Urine Negative (Negative); Leukocyte Esterase,Urine Negative (Negative); Nitrite,Urine Negative (Negative); Protein,Urine Negative (Negative); Specific Gravity,Urine 1.013 (1.001-1.035); Urobilinogen,Urine <2.0 mg/dL (<2.0)
[2024-06-04 16:27] LABS: Partial Thromboplastin Time 25.3 sec (22.0-30.0); Platelet Count 144 k/uL (150-450); Prothrombin Time 10.8 sec (10.0-12.5)
[2024-06-04 16:32] LABS: ALT 29 U/L (4-49); AST 21 U/L (17-59); African American GFR (CKD) 46 (>60 ml/min/1.73 sqM); Albumin 3.5 g/dL (3.5-5.0); Alkaline Phosphatase 83 U/L (38-126); Anion Gap 2 mmol/L; Blood Urea Nitrogen 55 mg/dL (9-20); Calcium 8.1 mg/dL (8.4-10.2); Carbon Dioxide 39 mmol/L (22-30); Chloride 97 mmol/L (98-107); Glucose 155 mg/dL (74-99); Magnesium 2.5 mg/dL (1.6-2.3); Non-African American GFR(CKD) 39 (>60 ml/min/1.73 sqM); Potassium 4.6 mmol/L (3.5-5.1); Sodium 138 mmol/L (137-145); Total Bilirubin 0.4 mg/dL (0.2-1.3); Total Protein 5.9 g/dL (6.3-8.2)
[2024-06-04 16:49] LABS: VBG PH 7.2 (7.31-7.41)
[2024-06-04 17:28] LABS: Amphetamine Screen,Urine Not Detected (NotDetected); Barbiturate Screen,Urine Not Detected (NotDetected); Benzodiazepines Screen,Urine Detected (NotDetected); Cocaine Screen,Urine Not Detected (NotDetected); Methadone Screen, Urine Not Detected (NotDetected); Opiate Screen,Urine Not Detected (NotDetected); Oxycodone Screen, Urine Detected (NotDetected); Phencyclidine Screen,Urine Not Detected (NotDetected); Tricyclic Antidepressant,Urine Not Detected (NotDetected); Urn Cannabinoid Scrn Not Detected (NotDetected)
--- NOTE | 2024-06-04 17:45 | XR ---
EXAMINATION TYPE: XR chest 2V DATE OF EXAM: 06/04/2024 5:31 PM COMPARISON: None. CLINICAL INDICATION: Male, 59 years old with history of difficulty breathing, TECHNIQUE: XR chest 2V view(s) obtained. Lateral view is not diagnostic due to motion artifact. FINDINGS: The heart size is enlarged. The pulmonary vasculature is prominent. Mild increased lung markings are within the right lower lung field. Correlate for atelectasis. Pneumo nas could be considered.. Lung apices are obscured by overlying chin. IMPRESSION: 1. Prominent pulmonary vascular markings. Some mild increase infiltrate may be within the right lung compared to the left greater the right base. Correlate for atelectasis or pneumonia. Atypical pulmona ry edema can be considered within the differential. 2. Consider developing congestive heart failure. 3. Exam is limited. [facility], Workstation: [email or web address], 06/04/2024 5:43 PM
[2024-06-04] MEDS: FUROSEMIDE 10 MG/ML 10 ML VIAL IV STA (18:18)
[2024-06-04] MEDS ORDERED: PROCHLORPERAZINE 10 MG TAB PO PRN (18:50)
[2024-06-04 19:18] LABS: Allen Test Performed? Yes
[2024-06-04 19:19] LABS: ABG PCO2 84 mmHg (35-45); ABG PH 7.24 (7.35-7.45); ABG PO2 63 mmHg (83-108)
[2024-06-04 19:20] LABS: ABG HCO3 36 mmol/L (21-25); ABG TCO2 38 mmol/L (19-24)
[2024-06-04] MEDS: SYMBICORT 160-4.5 MCG INHALER INHALATION SCH (19:49)
[2024-06-04] MEDS: IPRATROPIUM-ALBUTEROL 3 ML NEB INHALATION SCH (19:49)
[2024-06-04] MEDS: METOPROLOL TARTRATE 50 MG TAB PO SCH (21:21)
[2024-06-04] MEDS: acetaZOLAMIDE 250 MG TAB PO SCH (21:21)
[2024-06-04] MEDS: ATORVASTATIN 10 MG TAB PO SCH (21:22)
[2024-06-04] MEDS: busPIRone HCl 5 MG TAB PO SCH (21:22)
[2024-06-04] MEDS: PREGABALIN 50 MG CAP PO SCH (21:22)
[2024-06-04] MEDS: TAMSULOSIN 0.4 MG CAP.ER.24H PO SCH (21:22)
[2024-06-04] MEDS: APIXABAN 5 MG TAB PO SCH (21:23)
[2024-06-05] MEDS: FUROSEMIDE 10 MG/ML 4 ML VIAL IV SCH (02:19)
[2024-06-05] MEDS: AMIODARONE 200 MG TAB PO SCH (11:41)
[2024-06-05] MEDS: predniSONE 10 MG TAB PO SCH (11:41)
[2024-06-05] MEDS: SERTRALINE 50 MG TAB PO SCH (11:41)
[2024-06-05] MEDS: FINASTERIDE 5 MG TAB PO SCH (11:41)
[2024-06-05] MEDS: SPIRONOLACTONE 25 MG TAB PO SCH (11:41)
[2024-06-05] MEDS: PANTOPRAZOLE 40 MG TABLET PO SCH (11:41)
[2024-06-05] MEDS ORDERED: NON FORMULARY DRUG (Naloxone Hcl [Narcan] 4 MG Each) NASAL PRN (11:52)
[2024-06-05] MEDS ORDERED: NALOXONE 0.4 MG/ML 1 ML VIAL IVP PRN (11:57)
[2024-06-05 12:28] LABS: Glucose,Whole Blood 119 mg/dL (70-110)
[2024-06-05] MEDS: INSULIN ASPART (NovoLOG) 100 UNIT/ML VIAL SQ SCH (13:46)
--- NOTE | 2024-06-05 16:19 | P.HPIM ---
History of Present Illness H&P Date: 06/05/24 Chief Complaint: Altered mental status 59-year-old male, history of hypertension, hyperlipidemia, atrial fibrillation, asthma/COPD, sleep apnea, who comes from the senior living because he was more lethargic and his pulse ox was low at the senior living. Patient normally is on 2 L of oxygen at home. Patient himself wakes up and has no complaints however he is quick to go back to sleep. Patient has had no history of fever or chills patient denied any chest pain or palpitation. Patient has any abdominal pain patient has nausea vomiting diarrhea Blood work reveals WBC of 5.3, hemoglobin of 13.6 and platelet count of 144, sodium 138, potassium 4.6, BUNs/creatinine of 55/1.8 and blood glucose of 155, magnesium elevated at 2.5, lactic acid level of 1.5, troponin 0.023, ABG reveals pH of 7.24, pCO2 of 84, pO2 of 63; patient is admitted for further treatment for pulmonary edema hypercapnia Chest x-ray completed in ED reveals pulmonary edema Review of Systems REVIEW OF SYSTEMS: CONSTITUTIONAL: No fever, no malaise, no fatigue. HEENT: No recent visual problems or hearing problems. Denied any sore throat. CARDIOVASCULAR: No chest pain, orthopnea, PND, no palpitations, no syncope. PULMONARY: No shortness of breath, no cough, no hemoptysis. GASTROINTESTINAL: No diarrhea, no nausea, no vomiting, no abdominal pain. NEUROLOGICAL: No headaches, no weakness, no numbness. HEMATOLOGICAL: Denies any bleeding or petechiae. GENITOURINARY: Denies any burning micturition, frequency, or urgency. MUSCULOSKELETAL/RHEUMATOLOGICAL: Denies any joint pain, swelling, or any muscle pain. ENDOCRINE: Denies any polyuria or polydipsia. The rest of the 14-point review of systems is negative. 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 History of Any Multi-Drug Resistant Organisms: MRSA, Other MDRO Date of last positivie culture/infection: 11/15/22 MDRO Source:: Left Leg Past Surgical History: Hernia Repair, Joint Replacement, Orthopedic Surgery Additional Past Surgical History / Comment(s): RT ARMAND, rt foot SX, Past Anesthesia/Blood Transfusion Reactions: No Reported Reaction Past Psychological History: Depression Smoking Status: Former smoker Past Alcohol Use History: None Reported Past Drug Use History: None Reported - Past Family History Mother Family Medical History: No Reported History Medications and Allergies Home Medications Medication Instructions Recorded Confirmed Type hydrOXYzine pamoate [Vistaril] 50 mg PO HS PRN 07/09/22 06/04/24 History Atorvastatin [Lipitor] 10 mg PO HS 08/01/22 06/04/24 History Dapagliflozin Propanediol [Farxiga] 10 mg PO DAILY 30 Days #30 tab 09/10/22 06/04/24 Rx busPIRone HCl [Buspar] 5 mg PO TID 30 Days #90 tab 09/10/22 06/04/24 Rx Apixaban [Eliquis] 5 mg PO BID 12/12/23 06/04/24 History Finasteride [Proscar] 5 mg PO DAILY 12/12/23 06/04/24 History Sertraline [Zoloft] 50 mg PO DAILY 12/12/23 06/04/24 History Calcium Carbonate [Tums] 1,000 mg PO QID PRN tab 04/22/24 06/04/24 Rx Insulin Detemir (Levemir) [Levemir] 15 unit SQ BID@0700,2100 each 04/22/24 06/04/24 Rx Ipratropium-Albuterol Nebulize 3 ml INHALATION RT-Q2H PRN each 04/22/24 06/04/24 Rx [Duoneb 0.5 mg-3 mg/3 ml Soln] Ipratropium-Albuterol Nebulize 3 ml INHALATION RT-QID each 04/22/24 06/04/24 Rx [Duoneb 0.5 mg-3 mg/3 ml Soln] Metoprolol Tartrate [Lopressor] 150 mg PO BID tab 04/22/24 06/04/24 Rx diphenhydrAMINE [Benadryl] 25 mg PO BID PRN cap 04/22/24 06/04/24 Rx Naloxone HCl [Narcan] 4 mg NASAL DIRECTED PRN 05/01/24 06/04/24 History Prochlorperazine [Compazine] 10 mg PO Q8H PRN 05/01/24 06/04/24 History Tamsulosin [Flomax] 0.4 mg PO HS 05/01/24 06/04/24 History Torsemide [Demadex] 10 mg PO DAILY 05/01/24 06/04/24 History ALPRAZolam [Xanax] 0.25 mg PO TID #6 tab 05/15/24 06/04/24 Rx INSULIN ASPART (NovoLOG) [NovoLOG 5 unit SQ AC-TID each 05/15/24 06/04/24 Rx (formulary)] Budesonide-Formot 160-4.5 Mcg 2 puff INHALATION RT-BID each 05/18/24 06/04/24 Rx [Symbicort 160-4.5 Mcg Inhaler] Terbinafine [LamISIL] 250 mg PO DAILY tab 05/18/24 06/04/24 Rx acetaZOLAMIDE [Diamox] 250 mg PO BID tab 05/18/24 06/04/24 Rx Acetaminophen [Tylenol 8 Hour] 650 mg PO Q6H PRN 06/04/24 06/04/24 History Amiodarone [Cordarone] 200 mg PO DAILY 06/04/24 06/04/24 History Pantoprazole [Protonix] 40 mg PO DAILY 06/04/24 06/04/24 History Pregabalin [Lyrica] 50 mg PO BID 06/04/24 06/04/24 History Spironolactone [Aldactone] 25 mg PO DAILY 06/04/24 06/04/24 History oxyCODONE HCL/ACETAMINOPHEN 1 tab PO Q6HR PRN 06/04/24 06/04/24 History [Percocet 7.5-325 mg] predniSONE 10 mg PO DAILY 06/04/24 06/04/24 History Allergies Allergy/AdvReac Type Severity Reaction Status Date / Time No Known Allergies Allergy Verified 06/04/24 15:55 Physical Exam Vitals: Vital Signs Temp Pulse Pulse Resp BP Pulse Ox FiO2 06/05/24 11:08 97.4 F L 79 20 106/75 98 06/05/24 09:13 75 14 06/05/24 09:09 93 L 35 06/05/24 09:08 35 06/05/24 09:03 73 14 35 06/05/24 07:53 60 18 97/69 92 L 06/05/24 06:00 73 18 100/90 96 12/06/24 05:00 62 18 97/69 96 06/05/24 04:12 35 06/05/24 03:30 97.9 F 66 18 117/75 95 06/05/24 01:30 76 18 109/73 95 06/05/24 00:32 35 06/05/24 00:00 67 18 109/68 95 06/04/24 23:00 65 18 92/73 98 06/04/24 22:00 97.9 F 60 20 100/61 96 06/04/24 21:20 69 20 122/75 96 06/04/24 21:00 73 20 110/86 96 06/04/24 20:00 75 20 133/78 95 06/04/24 19:49 67 40 06/04/24 19:44 97.5 F L 77 20 120/77 95 06/04/24 19:06 40 06/04/24 19:00 71 20 121/74 93 L 06/04/24 18:00 64 20 103/58 93 L 35 06/04/24 17:42 75 20 119/82 95 06/04/24 17:11 69 20 126/79 98 06/04/24 17:06 20 06/04/24 16:42 66 20 111/83 95 06/04/24 16:23 69 24 102/80 94 L 06/04/24 16:17 74 26 H 121/78 94 L 06/04/24 16:14 18 06/04/24 16:00 74 18 106/62 89 L 06/04/24 15:05 71 22 06/04/24 14:51 98 F 75 22 104/62 95 Intake and Output 06/04/24 06/05/24 06/05/24 22:59 06:59 14:59 Output Total 700 1000 Balance -700 -1000 Output: Urine 700 1000 Other: Weight 158.757 kg Patient is well-developed and well-nourished. Patient is nontoxic and well- hydrated and is in no acute distress. Patient is very tired and goes to sleep quickly. Once I wake the patient up he is alert and oriented. ENT: Neck is soft and supple. No significant lymphadenopathy is noted. Oropharynx is clear. Moist mucous membranes. Neck has full range of motion without eliciting any pain. EYES: The sclera were anicteric and conjunctiva were pink and moist. Extraocular movements were intact and pupils were equal round and reactive to light. Eyelids were unremarkable. PULMONARY: Unlabored respirations. Good breath sounds bilaterally. No audible rales rhonchi or wheezing was noted. CARDIOVASCULAR: There is a regular rate and rhythm without any murmurs gallops or rubs. ABDOMEN: Soft and nontender with normal bowel sounds. SKIN: Skin is clear with no lesions or rashes and otherwise unremarkable. NEUROLOGIC: Patient is alert and oriented x3. Cranial nerves II through XII are grossly intact. Motor and sensory are also intact. Normal speech, volume and content. Symmetrical smile. MUSCULOSKELETAL: Patient has chronic cellulitis of both legs and he just had both legs wrapped up from the foot all the way to the knee and at this point in time I did not unwrap them but he has no complaints of leg pain. LYMPHATICS: No significant lymphadenopathy is noted PSYCHIATRIC: Normal psychiatric evaluation. Results CBC & Chem 7: 06/04/24 15:50 06/04/24 15:50 Labs: Abnormal Lab Results - Last 24 Hours (Table) 06/04/24 06/04/24 06/04/24 Range/Units 15:50 15:50 15:50 MCHC 30.3 L (31.0-37.0) g/dL RDW 18.1 H (11.5-15.5) % Plt Count 144 L D (150-450) k/uL Lymphocytes # 0.3 L (1.0-4.8) k/uL ABG pH (7.35-7.45) ABG pCO2 (35-45) mmHg ABG pO2 (83-108) mmHg ABG HCO3 (21-25) mmol/L ABG Total CO2 (19-24) mmol/L ABG O2 Saturation (94-97) % VBG pH 7.20 L* (7.31-7.41) VBG pCO2 89 H* (37-51) mmHg VBG HCO3 35 H (24-28) mmol/L Chloride 97 L (98-107) mmol/L Carbon Dioxide 39 H (22-30) mmol/L BUN 55 H (9-20) mg/dL Creatinine 1.81 H (0.66-1.25) mg/dL Glucose 155 H (74-99) mg/dL POC Glucose (mg/dL) (70-110) mg/dL Calcium 8.1 L (8.4-10.2) mg/dL Magnesium 2.5 H (1.6-2.3) mg/dL Total Protein 5.9 L (6.3-8.2) g/dL Urine Glucose (UA) (Negative) Ur Oxycodone Screen (NotDetected) U Benzodiazepines Scrn (NotDetected) 06/04/24 06/04/24 06/04/24 Range/Units 15:59 16:05 16:06 MCHC (31.0-37.0) g/dL RDW (11.5-15.5) % Plt Count (150-450) k/uL Lymphocytes # (1.0-4.8) k/uL ABG pH (7.35-7.45) ABG pCO2 (35-45) mmHg ABG pO2 (83-108) mmHg ABG HCO3 (21-25) mmol/L ABG Total CO2 (19-24) mmol/L ABG O2 Saturation (94-97) % VBG pH (7.31-7.41) VBG pCO2 (37-51) mmHg VBG HCO3 (24-28) mmol/L Chloride (98-107) mmol/L Carbon Dioxide (22-30) mmol/L BUN (9-20) mg/dL Creatinine (0.66-1.25) mg/dL Glucose (74-99) mg/dL POC Glucose (mg/dL) 244 H 216 H (70-110) mg/dL Calcium (8.4-10.2) mg/dL Magnesium (1.6-2.3) mg/dL Total Protein (6.3-8.2) g/dL Urine Glucose (UA) 4+ H (Negative) Ur Oxycodone Screen (NotDetected) U Benzodiazepines Scrn (NotDetected) 06/04/24 06/04/24 Range/Units 17:08 18:51 MCHC (31.0-37.0) g/dL RDW (11.5-15.5) % Plt Count (150-450) k/uL Lymphocytes # (1.0-4.8) k/uL ABG pH 7.24 L (7.35-7.45) ABG pCO2 84 H* (35-45) mmHg ABG pO2 63 L (83-108) mmHg ABG HCO3 36 H (21-25) mmol/L ABG Total CO2 38 H (19-24) mmol/L ABG O2 Saturation 90.0 L (94-97) % VBG pH (7.31-7.41) VBG pCO2 (37-51) mmHg VBG HCO3 (24-28) mmol/L Chloride (98-107) mmol/L Carbon Dioxide (22-30) mmol/L BUN (9-20) mg/dL Creatinine (0.66-1.25) mg/dL Glucose (74-99) mg/dL POC Glucose (mg/dL) (70-110) mg/dL Calcium (8.4-10.2) mg/dL Magnesium (1.6-2.3) mg/dL Total Protein (6.3-8.2) g/dL Urine Glucose (UA) (Negative) Ur Oxycodone Screen Detected H (NotDetected) U Benzodiazepines Scrn Detected H (NotDetected) Assessment and Plan Assessment: 1. Pulmonary edema; patient has been placed on Lasix 40 mg IV every 8 hours -We will monitor strict SHERIE's, daily weights, low-salt and fluid restricted diet -Will consult cardiology 2. Hypercapnia; patient has history of COPD/asthma; mild exacerbation -Patient has been placed on DuoNeb nebulizer treatments 4 times daily and as needed; will add Solu-Medrol 40 mg IV every 12 hours; patient has been placed on Diamox to 50 mg twice daily -Pulmonary has been consulted 3. Atrial fibrillation; controlled ventricular response -Patient is anticoagulated on Eliquis; amiodarone 200 mg daily; metoprolol 150 mg twice daily 4. Hyperglycemia; uncontrolled diabetes mellitus with long-term insulin use -- Lantus 15 units SQ twice daily; NovoLog 5 units SQ AC -Will monitor Accu-Cheks before every meal and at bedtime with insulin sliding scale 5. Hypertension; metoprolol 150 mg daily; Lasix 40 mg IV every 8 hours 6. Hyperlipidemia; Lipitor 10 mg p.o. nightly 7. BPH; Proscar 5 mg daily DVT prophylaxis; SCDs/Eliquis CODE STATUS; full code
[2024-06-05 16:21] LABS: Glucose,Whole Blood 207 mg/dL (70-110)
--- NOTE | 2024-06-05 17:02 | P.CNPUL ---
History of Present Illness Consult date: 06/05/24 Requesting physician: Uma Jones Reason for consult: dyspnea, cough, COPD Chief complaint: Shortness of breath shortness History of present illness: This is a 59-year-old white male familiar to my service, known history of multiple medical problems including severe end-stage COPD, obstructive sleep apnea syndrome, BiPAP dependent almost, history of chronic hypoxic and chronic hypercapnic respiratory failure, patient is frequently in the hospital with similar presentation each time. This time he was seen in the ER with worsening shortness of breath, and he noted that his O2 saturation has been getting less and less, patient is known to be noncompliant at times with his BiPAP. At any rate patient was seen in the ER, ABG showed relative hypoxia with a pO2 of 63 on 35% FiO2 84 pH of 7.24 patient had positive drug screen for oxycodone and benzodiazepines, patient was placed on BiPAP and I saw him in the ER, recommended that the patient goes on his usual treatment with bronchodilators, BiPAP, and diuretics. Patient himself is not a great historian and he was not a great historian today when I saw him in the ER as he was hypercapnic on BiPAP, lethargic but arousable and did not follow much instructions labs showed normal CBC, abnormal ABG as noted earlier, Bicarb of 39 BUN 55 creatinine 1.81 elevated BNP level, and chest x-ray showing evidence of pulmonary edema Review of Systems ROS unobtainable: due to mental status 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 History of Any Multi-Drug Resistant Organisms: MRSA, Other MDRO Date of last positivie culture/infection: 11/15/22 MDRO Source:: Left Leg Past Surgical History: Hernia Repair, Joint Replacement, Orthopedic Surgery Additional Past Surgical History / Comment(s): RT ARMAND, rt foot SX, Past Anesthesia/Blood Transfusion Reactions: No Reported Reaction Past Psychological History: Depression Smoking Status: Former smoker Past Alcohol Use History: None Reported Past Drug Use History: None Reported - Past Family History Mother Family Medical History: No Reported History Medications and Allergies Home Medications Medication Instructions Recorded Confirmed Type hydrOXYzine pamoate [Vistaril] 50 mg PO HS PRN 07/09/22 06/04/24 History Atorvastatin [Lipitor] 10 mg PO HS 08/01/22 06/04/24 History Dapagliflozin Propanediol [Farxiga] 10 mg PO DAILY 30 Days #30 tab 09/10/22 06/04/24 Rx busPIRone HCl [Buspar] 5 mg PO TID 30 Days #90 tab 09/10/22 06/04/24 Rx Apixaban [Eliquis] 5 mg PO BID 12/12/23 06/04/24 History Finasteride [Proscar] 5 mg PO DAILY 12/12/23 06/04/24 History Sertraline [Zoloft] 50 mg PO DAILY 12/12/23 06/04/24 History Calcium Carbonate [Tums] 1,000 mg PO QID PRN tab 04/22/24 06/04/24 Rx Insulin Detemir (Levemir) [Levemir] 15 unit SQ BID@0700,2100 each 04/22/24 06/04/24 Rx Ipratropium-Albuterol Nebulize 3 ml INHALATION RT-Q2H PRN each 04/22/24 06/04/24 Rx [Duoneb 0.5 mg-3 mg/3 ml Soln] Ipratropium-Albuterol Nebulize 3 ml INHALATION RT-QID each 04/22/24 06/04/24 Rx [Duoneb 0.5 mg-3 mg/3 ml Soln] Metoprolol Tartrate [Lopressor] 150 mg PO BID tab 04/22/24 06/04/24 Rx diphenhydrAMINE [Benadryl] 25 mg PO BID PRN cap 04/22/24 06/04/24 Rx Naloxone HCl [Narcan] 4 mg NASAL DIRECTED PRN 05/01/24 06/04/24 History Prochlorperazine [Compazine] 10 mg PO Q8H PRN 05/01/24 06/04/24 History Tamsulosin [Flomax] 0.4 mg PO HS 05/01/24 06/04/24 History Torsemide [Demadex] 10 mg PO DAILY 05/01/24 06/04/24 History ALPRAZolam [Xanax] 0.25 mg PO TID #6 tab 05/15/24 06/04/24 Rx INSULIN ASPART (NovoLOG) [NovoLOG 5 unit SQ AC-TID each 05/15/24 06/04/24 Rx (formulary)] Budesonide-Formot 160-4.5 Mcg 2 puff INHALATION RT-BID each 05/18/24 06/04/24 Rx [Symbicort 160-4.5 Mcg Inhaler] Terbinafine [LamISIL] 250 mg PO DAILY tab 05/18/24 06/04/24 Rx acetaZOLAMIDE [Diamox] 250 mg PO BID tab 05/18/24 06/04/24 Rx Acetaminophen [Tylenol 8 Hour] 650 mg PO Q6H PRN 06/04/24 06/04/24 History Amiodarone [Cordarone] 200 mg PO DAILY 06/04/24 06/04/24 History Pantoprazole [Protonix] 40 mg PO DAILY 06/04/24 06/04/24 History Pregabalin [Lyrica] 50 mg PO BID 06/04/24 06/04/24 History Spironolactone [Aldactone] 25 mg PO DAILY 06/04/24 06/04/24 History oxyCODONE HCL/ACETAMINOPHEN 1 tab PO Q6HR PRN 06/04/24 06/04/24 History [Percocet 7.5-325 mg] predniSONE 10 mg PO DAILY 06/04/24 06/04/24 History Allergies Allergy/AdvReac Type Severity Reaction Status Date / Time No Known Allergies Allergy Verified 06/04/24 15:55 Physical Exam Vitals: Vital Signs Temp Pulse Resp BP Pulse Ox FiO2 06/05/24 14:20 97.8 F 73 13 98/68 92 L 06/05/24 13:20 79 19 96/59 93 L 06/05/24 13:10 76 8 L 96/59 92 L 06/05/24 13:00 18 06/05/24 12:20 79 18 105/79 91 L 06/05/24 12:13 73 18 06/05/24 12:03 68 20 06/05/24 11:40 66 21 100/63 92 L 06/05/24 11:08 97.4 F L 79 20 106/75 98 06/05/24 10:20 78 17 99/62 95 06/05/24 09:40 72 15 105/71 94 L 12/06/24 09:30 80 15 104/64 93 L 06/05/24 09:13 75 14 06/05/24 09:09 93 L 35 06/05/24 09:08 35 06/05/24 09:03 73 14 35 06/05/24 08:30 75 14 102/65 92 L 06/05/24 07:53 60 18 97/69 92 L 06/05/24 07:30 69 16 95/66 93 L 06/05/24 06:00 73 18 100/90 96 06/05/24 05:00 62 18 97/69 96 06/05/24 04:12 35 06/05/24 03:30 97.9 F 66 18 117/75 95 06/05/24 01:30 76 18 109/73 95 06/05/24 00:32 35 06/05/24 00:00 67 18 109/68 95 06/04/24 23:00 65 18 92/73 98 06/04/24 22:00 97.9 F 60 20 100/61 96 06/04/24 21:20 69 20 122/75 96 06/04/24 21:00 73 20 110/86 96 06/04/24 20:00 75 20 133/78 95 06/04/24 19:49 67 40 06/04/24 19:44 97.5 F L 77 20 120/77 95 06/04/24 19:06 40 06/04/24 19:00 71 20 121/74 93 L 06/04/24 18:00 64 20 103/58 93 L 35 06/04/24 17:42 75 20 119/82 95 06/04/24 17:11 69 20 126/79 98 06/04/24 17:06 20 Intake and Output 06/05/24 06/05/24 06/05/24 06:59 14:59 22:59 Output Total 1000 Balance -1000 Output: Urine 1000 Other: Weight 158.757 kg Physical exam: Reveals 62-year-old white male patient, morbidly obese currently on a BiPAP pressure of 12/5 with an FiO2 35% HEENT examination is grossly unremarkable. Mucous membranes are moist. No oral lesions. Neck supple. Full range of motion. No adenopathy thyromegaly or neck vein distention. Cardiovascular examination reveals an irregular rhythm and rate. S1-S2 normal. No S3 or S4. No discernible murmur noted. Lungs reveal diminished bilateral breath sounds. No crackles rhonchi or wheezes, diminished breath sounds Or wheezes throughout the lung gimenez bilaterally Abdomen soft bowel sounds are heard. No masses or tenderness. Extremities reveal 3+ bilateral lower extremity pitting edema. Blistering cellulitis to right lower extremity wrapped with sterile dressing Skin: As noted above Neurologic: Lethargic ,no gross focal deficit Psychiatric: Lethargic arousable very uncooperative. Results - Laboratory Findings CBC and BMP: 06/04/24 15:50 06/04/24 15:50 ABG ABG pH 7.24 (7.35-7.45) L 06/04/24 18:51 ABG pCO2 84 mmHg (35-45) H* 06/04/24 18:51 ABG pO2 63 mmHg (83-108) L 06/04/24 18:51 ABG O2 Saturation 90.0 % (94-97) L 06/04/24 18:51 PT/INR, D-dimer PT 10.8 sec (10.0-12.5) 06/04/24 15:50 INR 1.0 (<1.2) 06/04/24 15:50 Abnormal lab findings: Abnormal Labs 06/04/24 06/04/24 06/04/24 15:50 15:50 15:50 MCHC 30.3 L RDW 18.1 H Plt Count 144 L D Lymphocytes # 0.3 L ABG pH ABG pCO2 ABG pO2 ABG HCO3 ABG Total CO2 ABG O2 Saturation VBG pH 7.20 L* VBG pCO2 89 H* VBG HCO3 35 H Chloride 97 L Carbon Dioxide 39 H BUN 55 H Creatinine 1.81 H Glucose 155 H POC Glucose (mg/dL) Calcium 8.1 L Magnesium 2.5 H Total Protein 5.9 L Urine Glucose (UA) Ur Oxycodone Screen U Benzodiazepines Scrn 06/04/24 06/04/24 06/04/24 15:59 16:05 16:06 MCHC RDW Plt Count Lymphocytes # ABG pH ABG pCO2 ABG pO2 ABG HCO3 ABG Total CO2 ABG O2 Saturation VBG pH VBG pCO2 VBG HCO3 Chloride Carbon Dioxide BUN Creatinine Glucose POC Glucose (mg/dL) 244 H 216 H Calcium Magnesium Total Protein Urine Glucose (UA) 4+ H Ur Oxycodone Screen U Benzodiazepines Scrn 06/04/24 06/04/24 06/05/24 17:08 18:51 12:26 MCHC RDW Plt Count Lymphocytes # ABG pH 7.24 L ABG pCO2 84 H* ABG pO2 63 L ABG HCO3 36 H ABG Total CO2 38 H ABG O2 Saturation 90.0 L VBG pH VBG pCO2 VBG HCO3 Chloride Carbon Dioxide BUN Creatinine Glucose POC Glucose (mg/dL) 119 H Calcium Magnesium Total Protein Urine Glucose (UA) Ur Oxycodone Screen Detected H U Benzodiazepines Scrn Detected H 06/05/24 16:20 MCHC RDW Plt Count Lymphocytes # ABG pH ABG pCO2 ABG pO2 ABG HCO3 ABG Total CO2 ABG O2 Saturation VBG pH VBG pCO2 VBG HCO3 Chloride Carbon Dioxide BUN Creatinine Glucose POC Glucose (mg/dL) 207 H Calcium Magnesium Total Protein Urine Glucose (UA) Ur Oxycodone Screen U Benzodiazepines Scrn - Diagnostic Findings Chest x-ray: image reviewed (Chest x-ray is consistent with CHF/pulmonary edema) Assessment and Plan Assessment: Impression: Acute on chronic hypoxemic, and hypercapnic respiratory failure, secondary to an exacerbation of chronic diastolic congestive heart failure along with a com ponent of COPD exacerbation. Chest x-ray showing cardiomegaly, pulmonary vascular congestion, interstitial edema and some small bilateral pleural effusion. The patient would benefit from BiPAP, diuretic and bronchodilators and steroids. signs of CO2 narcosis and the patient is tolerating the BiPAP reasonably well at this point in time. Very severe chronic obstructive pulmonary disease, with an FEV1 22% of predicted Obstructive sleep apnea, patient is noncompliant with his noninvasive positive airway pressure machine Morbid obesity, with a BMI of 48.7 kg/m Chronic stage IIIa kidney disease Atrial fibrillation, anticoagulated with Eliquis Chronic lower extremity edema, with multiple venous stasis ulcers, History of hypertension History of hyperlipidemia Former tobacco dependence Severe cellulitis of right lower extremity, s/p debridement, chronic Recommendation: Continue BiPAP Continue bronchodilators Continue diuretics Resume home meds GI and DVT prophylaxis Will continue to follow Prognosis remains poor and guarded in the long-term Time with Patient: Greater than 30
[2024-06-05] MEDS: methylPREDNISolone SOD SUCCI 40 MG/ML 1 ML VIAL IV SCH (17:30)
[2024-06-05] MEDS: oxyCODONE-APAP 7.5-325MG 1 EACH TAB PO PRN (17:34)
[2024-06-05 19:59] LABS: Glucose,Whole Blood 103 mg/dL (70-110)
[2024-06-05] MEDS: INSULIN DETEMIR (LEVEMIR) 100 UNIT/ML SYR SQ SCH (20:59)
[2024-06-06 06:19] LABS: Glucose,Whole Blood 260 mg/dL (70-110)
[2024-06-06 07:02] LABS: Anisocytosis Slight; Basophils % (A) 0 %; Eosinophils % (A) 0 %; HCT 41.6 % (39.0-53.0); HGB 13.1 gm/dL (13.0-17.5); Hypochromasia Marked; Lymphocytes # (A) 0.3 k/uL (1.0-4.8); Lymphocytes % (A) 7 %; MCH 29.6 pg (25.0-35.0); MCHC 31.4 g/dL (31.0-37.0); MCV 94.1 fL (80.0-100.0); Macrocytosis Slight; Mean Platelet Volume 9.1; Monocytes # (A) 0.2 k/uL (0-1.0); Monocytes % (A) 6 %; Neutrophils # (A) 3.6 k/uL (1.3-7.7); Neutrophils % (A) 86 %; Platelet Count 144 k/uL (150-450); Poikilocytosis Slight; RBC 4.42 m/uL (4.30-5.90); RDW 18.8 % (11.5-15.5); WBC 4.2 k/uL (3.8-10.6)
[2024-06-06 07:35] LABS: African American GFR (CKD) 54 (>60 ml/min/1.73 sqM); Anion Gap 5 mmol/L; Blood Urea Nitrogen 49 mg/dL (9-20); Calcium 7.5 mg/dL (8.4-10.2); Carbon Dioxide 38 mmol/L (22-30); Chloride 94 mmol/L (98-107); Glucose 279 mg/dL (74-99); Non-African American GFR(CKD) 47 (>60 ml/min/1.73 sqM); Potassium 4.3 mmol/L (3.5-5.1); Sodium 137 mmol/L (137-145)
--- NOTE | 2024-06-06 10:29 | P.CRDCN ---
History of Present Illness Consult date: 06/06/24 Reason for Consult (text): Pulmonary edema History of present illness: This is 59-year-old male patient of Dr. Dickerson with past medical history of chronic diastolic heart failure, diabetes mellitus type 2, chronic kidney disease stage III, hypertension, hyperlipidemia, persistent atrial fibrillation with recent cardioversion 04/08/2024, end-stage COPD, obstructive sleep apnea, morbid obesity. We have been asked to evaluate the patient for pulmonary edema. Patient states that at the [facility] he was very short of breath but he did not really feel it. He thinks it may have affected his mental status. Patient had a drop in his pulse ox. He also has lower extremity edema. No fever or chills. He has been started on Lasix 40 mg every 8 hours and he feels that his breathing is somewhat improved this morning. Blood pressure 122/71, heart rate 88, pulse ox 93% on 4 L. -EKG: Atrial fibrillation at 66 bpm -Chest x-ray: Prominent pulmonary vascular markings correlate for atelectasis or pneumonia. Atypical pulmonary edema may be considered. Consider developing heart failure. -Laboratory studies: Hemoglobin 13.1, WBC 4.2, platelet count 144. Sodium 137, potassium 4.3, initial BUN 55 and creatinine 1.81 with repeat of BUN 49 creatinine 1.58. Troponin negative x 1. proBNP 9140. Urine drug screen positive for oxycodone and benzodiazepines. Influenza A, influenza B, RSV, COVID-19 not detected. -Home cardiac medications: Diamox 250 mg twice daily, amiodarone 200 mg daily, Eliquis 5 mg twice daily, atorvastatin 10 mg at bedtime, Farxiga 10 mg daily, finasteride 5 mg daily, Lopressor 150 mg twice daily, Aldactone 25 mg daily, Demadex 10 mg daily. -JESS and cardioversion 04/08/2024 -Echocardiogram performed 12/13/2023: EF 60 to 65%, moderate concentric LVH, severe LA dilatation. -Lexiscan stress test performed 07/20/2022 revealed no evidence of reversible ischemia. -Radiofrequency ablation for typical atrial flutter 07/27/2021 Review Of Systems: At the time of my exam: CONSTITUTIONAL: Denies fever or chills. HEENT: Denies blurred vision, vision changes, or eye pain. Denies hemoptysis CARDIOVASCULAR: Denies chest pain. Denies orthopnea. Denies PND. Denies palpitations RESPIRATORY: Reports shortness of breath. GASTROINTESTINAL: Denies abdominal pain. Denies nausea or vomiting. HEMATOLOGIC: Denies bleeding disorders. GENITOURINARY: Denies any blood in urine. SKIN: Denies puritis. Denies rash. Physical examination: Gen: This is a 59-year-old morbidly obese male in no acute distress VS: reviewed HEENT: Head is atraumatic, normocephalic. Pupils equal, round. Sclerae is anicteric. NECK: Supple. No JVD. LUNGS: Clear to auscultation. No wheezes or rhonchi. No intercostal retractio ns. HEART: Irregular rate and rhythm. ABDOMEN: Soft No tenderness. EXTREMITIES: Bilateral lower extremity edema. No calf tenderness. NEUROLOGICAL: Patient is awake, alert and oriented x3. Assessment: Acute on chronic diastolic heart failure Persistent atrial fibrillation Diabetes mellitus type 2 Chronic kidney disease stage III Hypertension Hyperlipidemia End-stage COPD Obstructive sleep apnea Morbid obesity with BMI of 44 Plan: Resume patient's home cardiac medications Continue IV Lasix 40 mg every 8 hours Monitor SHERIE, daily weight, electrolytes and renal function Obtain 2-D echocardiogram and Doppler study to assess cardiac structure and function Further recommendations to follow based upon clinical course Thank you kindly for this consultation. Nurse practitioner note has been reviewed, I agree with documented findings and plan of care. Patient was seen and examined. 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 History of Any Multi-Drug Resistant Organisms: MRSA, Other MDRO Date of last positivie culture/infection: 11/15/22 MDRO Source:: Left Leg Past Surgical History: Hernia Repair, Joint Replacement, Orthopedic Surgery Additional Past Surgical History / Comment(s): RT ARMAND, rt foot SX, Past Anesthesia/Blood Transfusion Reactions: No Reported Reaction Smoking Status: Former smoker - Past Family History Mother Family Medical History: No Reported History Medications and Allergies Home Medications Medication Instructions Recorded Confirmed Type hydrOXYzine pamoate [Vistaril] 50 mg PO HS PRN 07/09/22 06/04/24 History Atorvastatin [Lipitor] 10 mg PO HS 08/01/22 06/04/24 History Dapagliflozin Propanediol [Farxiga] 10 mg PO DAILY 30 Days #30 tab 09/10/22 06/04/24 Rx busPIRone HCl [Buspar] 5 mg PO TID 30 Days #90 tab 09/10/22 06/04/24 Rx Apixaban [Eliquis] 5 mg PO BID 12/12/23 06/04/24 History Finasteride [Proscar] 5 mg PO DAILY 12/12/23 06/04/24 History Sertraline [Zoloft] 50 mg PO DAILY 12/12/23 06/04/24 History Calcium Carbonate [Tums] 1,000 mg PO QID PRN tab 04/22/24 06/04/24 Rx Insulin Detemir (Levemir) [Levemir] 15 unit SQ BID@0700,2100 each 04/22/24 06/04/24 Rx Ipratropium-Albuterol Nebulize 3 ml INHALATION RT-Q2H PRN each 04/22/24 06/04/24 Rx [Duoneb 0.5 mg-3 mg/3 ml Soln] Ipratropium-Albuterol Nebulize 3 ml INHALATION RT-QID each 04/22/24 06/04/24 Rx [Duoneb 0.5 mg-3 mg/3 ml Soln] Metoprolol Tartrate [Lopressor] 150 mg PO BID tab 04/22/24 06/04/24 Rx diphenhydrAMINE [Benadryl] 25 mg PO BID PRN cap 04/22/24 06/04/24 Rx Naloxone HCl [Narcan] 4 mg NASAL DIRECTED PRN 05/01/24 06/04/24 History Prochlorperazine [Compazine] 10 mg PO Q8H PRN 05/01/24 06/04/24 History Tamsulosin [Flomax] 0.4 mg PO HS 05/01/24 06/04/24 History Torsemide [Demadex] 10 mg PO DAILY 05/01/24 06/04/24 History ALPRAZolam [Xanax] 0.25 mg PO TID #6 tab 05/15/24 06/04/24 Rx INSULIN ASPART (NovoLOG) [NovoLOG 5 unit SQ AC-TID each 05/15/24 06/04/24 Rx (formulary)] Budesonide-Formot 160-4.5 Mcg 2 puff INHALATION RT-BID each 05/18/24 06/04/24 Rx [Symbicort 160-4.5 Mcg Inhaler] Terbinafine [LamISIL] 250 mg PO DAILY tab 05/18/24 06/04/24 Rx acetaZOLAMIDE [Diamox] 250 mg PO BID tab 05/18/24 06/04/24 Rx Acetaminophen [Tylenol 8 Hour] 650 mg PO Q6H PRN 06/04/24 06/04/24 History Amiodarone [Cordarone] 200 mg PO DAILY 06/04/24 06/04/24 History Pantoprazole [Protonix] 40 mg PO DAILY 06/04/24 06/04/24 History Pregabalin [Lyrica] 50 mg PO BID 06/04/24 06/04/24 History Spironolactone [Aldactone] 25 mg PO DAILY 06/04/24 06/04/24 History oxyCODONE HCL/ACETAMINOPHEN 1 tab PO Q6HR PRN 06/04/24 06/04/24 History [Percocet 7.5-325 mg] predniSONE 10 mg PO DAILY 06/04/24 06/04/24 History Allergies Allergy/AdvReac Type Severity Reaction Status Date / Time No Known Allergies Allergy Verified 06/04/24 15:55 Physical Exam Vitals: Vital Signs Temp Pulse Pulse Resp BP BP Pulse Ox 06/06/24 07:56 78 06/06/24 07:45 75 06/06/24 03:59 60 16 99/57 95 06/05/24 23:56 77 16 96/58 93 L 06/05/24 23:25 06/05/24 21:28 77 20 06/05/24 21:20 79 20 06/05/24 20:00 97.7 F 74 18 109/60 93 L 06/05/24 16:00 98.4 F 68 18 94/57 91 L 06/05/24 14:20 97.8 F 73 13 98/68 92 L 06/05/24 13:20 79 19 96/59 93 L 06/05/24 13:10 76 8 L 96/59 92 L 06/05/24 13:00 18 06/05/24 12:20 79 18 105/79 91 L 06/05/24 12:13 73 18 06/05/24 12:03 68 20 06/05/24 11:40 66 21 100/63 92 L 06/05/24 11:08 97.4 F L 79 20 106/75 98 06/05/24 10:20 78 17 99/62 95 06/05/24 09:40 72 15 105/71 94 L 06/05/24 09:30 80 15 104/64 93 L 06/05/24 09:13 75 14 06/05/24 09:09 93 L 06/05/24 09:08 06/05/24 09:03 73 14 FiO2 06/06/24 07:56 06/06/24 07:45 06/06/24 03:59 06/05/24 23:56 06/05/24 23:25 35 06/05/24 21:28 06/05/24 21:20 06/05/24 20:00 06/05/24 16:00 06/05/24 14:20 06/05/24 13:20 06/05/24 13:10 06/05/24 13:00 06/05/24 12:20 06/05/24 12:13 06/05/24 12:03 06/05/24 11:40 06/05/24 11:08 06/05/24 10:20 06/05/24 09:40 06/05/24 09:30 06/05/24 09:13 06/05/24 09:09 35 06/05/24 09:08 35 06/05/24 09:03 35 Intake and Output 06/05/24 06/06/24 06/06/24 22:59 06:59 14:59 Intake Total 118 540 240 Output Total 700 Balance -582 540 240 Intake: Oral 118 540 240 Output: Urine 700 Other: Voiding Method Urinal Urinal Diaper Diaper # Voids 1 1 Weight 158.757 kg 153 kg Results 06/06/24 05:39 06/06/24 05:39 CBC 06/06/24 Range/Units 05:39 WBC 4.2 (3.8-10.6) k/uL RBC 4.42 (4.30-5.90) m/uL Hgb 13.1 (13.0-17.5) gm/dL Hct 41.6 (39.0-53.0) % Plt Count 144 L (150-450) k/uL Comprehensive Metabolic Panel 06/06/24 Range/Units 05:39 Sodium 137 (137-145) mmol/L Potassium 4.3 (3.5-5.1) mmol/L Chloride 94 L (98-107) mmol/L Carbon Dioxide 38 H (22-30) mmol/L BUN 49 H (9-20) mg/dL Creatinine 1.58 H (0.66-1.25) mg/dL Glucose 279 H (74-99) mg/dL Calcium 7.5 L (8.4-10.2) mg/dL Current Medications Generic Name Dose Route Start Last Admin Trade Name Freq PRN Reason Stop Dose Admin Acetazolamide 250 mg 06/04/24 21:00 06/05/24 20:59 Acetazolamide 250 Mg Tab PO 250 mg BID OBI Administration Albuterol/Ipratropium 3 ml 06/04/24 18:50 Ipratropium-Albuterol 3 Ml Neb INHALATION RT-Q2H PRN Shortness Of Breath Or Wheezing Albuterol/Ipratropium 3 ml 06/04/24 20:00 06/06/24 07:42 Ipratropium-Albuterol 3 Ml Neb INHALATION 3 ml RT-QID OBI Administration Amiodarone HCl 200 mg 06/05/24 09:00 06/05/24 11:41 Amiodarone 200 Mg Tab PO 200 mg DAILY OBI Administration Apixaban 5 mg 06/04/24 21:00 06/05/24 20:59 Apixaban 5 Mg Tab PO 5 mg BID OBI Administration Protocol Atorvastatin Calcium 10 mg 06/04/24 21:00 06/05/24 20:59 Atorvastatin 10 Mg Tab PO 10 mg HS OBI Administration Budesonide/Formoterol Fumarate 2 puff 06/04/24 20:00 06/06/24 07:42 Symbicort 160-4.5 Mcg Inhaler INHALATION 2 puff RT-BID OBI Administration Buspirone HCl 5 mg 06/04/24 22:00 06/05/24 20:59 Buspirone Hcl 5 Mg Tab PO 5 mg TID OBI Administration Finasteride 5 mg 06/05/24 09:00 06/05/24 11:41 Finasteride 5 Mg Tab PO 5 mg DAILY OBI Administration Furosemide 40 mg 06/05/24 02:00 06/06/24 01:50 Furosemide 10 Mg/Ml 4 Ml Vial IV 40 mg Q8H OBI Administration Hydroxyzine Pamoate 50 mg 06/05/24 11:52 Hydroxyzine Pamoate 25 Mg Cap PO HS PRN ANXIETY/INSOMNIA Insulin Aspart 5 unit 06/05/24 12:30 06/06/24 06:15 Insulin Aspart (Novolog) 100 Unit/Ml Vial SQ 5 unit AC-TID OBI Administration Insulin Detemir 15 unit 06/05/24 21:00 06/06/24 06:15 Insulin Detemir (Levemir) 100 Unit/Ml Syr SQ 15 unit BID@0700,2100 OBI Administration Methylprednisolone Sodium Succinate 40 mg 06/05/24 16:30 06/05/24 23:12 Methylprednisolone Sod Succi 40 Mg/Ml 1 Ml Vial IV 40 mg Q8HR OBI Administration Metoprolol Tartrate 150 mg 06/04/24 21:00 06/05/24 20:59 Metoprolol Tartrate 50 Mg Tab PO 150 mg BID OBI Administration Naloxone HCl 0.2 mg 06/05/24 11:57 Naloxone 0.4 Mg/Ml 1 Ml Vial IVP Q2M PRN Opioid Reversal Oxycodone/Acetaminophen 1 each 06/05/24 11:52 06/06/24 05:50 Oxycodone-Apap 7.5-325mg 1 Each Tab PO 1 each Q6HR PRN Administration Pain Pantoprazole Sodium 40 mg 06/05/24 07:30 06/06/24 06:15 Pantoprazole 40 Mg Tablet PO 40 mg AC-BRKFST OBI Administration Pregabalin 50 mg 06/04/24 21:00 06/05/24 20:59 Pregabalin 50 Mg Cap PO 50 mg BID OBI Administration Prochlorperazine Maleate 10 mg 06/04/24 18:50 Prochlorperazine 10 Mg Tab PO Q8H PRN Nausea And Vomiting Sertraline HCl 50 mg 06/05/24 09:00 06/05/24 11:41 Sertraline 50 Mg Tab PO 50 mg DAILY OBI Administration Spironolactone 25 mg 06/05/24 09:00 06/05/24 11:45 Spironolactone 25 Mg Tab PO Not Given DAILY OBI Tamsulosin HCl 0.4 mg 06/04/24 21:00 06/05/24 20:59 Tamsulosin 0.4 Mg Cap.Er.24h PO 0.4 mg HS OBI Administration Intake and Output 06/05/24 06/06/24 06/06/24 22:59 06:59 14:59 Intake Total 118 540 240 Output Total 700 Balance -582 540 240 Intake: Oral 118 540 240 Output: Urine 700 Other: Voiding Method Urinal Urinal Diaper Diaper # Voids 1 1 Weight 158.757 kg 153 kg 06/06/24 05:39 06/06/24 05:39
[2024-06-06 11:35] LABS: Glucose,Whole Blood 157 mg/dL (70-110)
--- NOTE | 2024-06-06 14:59 | P.PN ---
Subjective Progress Note Date: 06/06/24 59-year-old male, history of hypertension, hyperlipidemia, atrial fibrillation, asthma/COPD, sleep apnea, who comes from the detention because he was more lethargic and his pulse ox was low at the detention. Patient normally is on 2 L of oxygen at home. Patient himself wakes up and has no complaints however he is quick to go back to sleep. Patient has had no history of fever or chills patient denied any chest pain or palpitation. Patient has any abdominal pain patient has nausea vomiting diarrhea Blood work reveals WBC of 5.3, hemoglobin of 13.6 and platelet count of 144, sodium 138, potassium 4.6, BUNs/creatinine of 55/1.8 and blood glucose of 155, magnesium elevated at 2.5, lactic acid level of 1.5, troponin 0.023, ABG reveals pH of 7.24, pCO2 of 84, pO2 of 63; patient is admitted for further treatment for pulmonary edema hypercapnia Chest x-ray completed in ED reveals pulmonary edema Objective - Vital Signs Vital signs: Vital Signs Temp 98.0 F 06/06/24 09:04 Pulse 79 06/06/24 12:24 Resp 15 06/06/24 12:18 BP 96/58 06/06/24 12:18 Pulse Ox 95 06/06/24 12:18 FiO2 35 06/06/24 12:16 Intake & Output 06/05/24 06/06/24 06/06/24 18:59 06:59 18:59 Intake Total 118 540 240 Output Total 700 Balance -582 540 240 Weight 158.757 kg 153 kg Intake: Oral 118 540 240 Output: Urine 700 Other: Voiding Method Urinal Urinal Urinal Diaper Diaper Diaper # Voids 1 - Exam Patient is well-developed and well-nourished. Patient is nontoxic and well- hydrated and is in no acute distress. Patient is very tired and goes to sleep quickly. Once I wake the patient up he is alert and oriented. ENT: Neck is soft and supple. No significant lymphadenopathy is noted. Oropharynx is clear. Moist mucous membranes. Neck has full range of motion without eliciting any pain. EYES: The sclera were anicteric and conjunctiva were pink and moist. Extraocular movements were intact and pupils were equal round and reactive to light. Eyelids were unremarkable. PULMONARY: Unlabored respirations. Good breath sounds bilaterally. No audible rales rhonchi or wheezing was noted. CARDIOVASCULAR: There is a regular rate and rhythm without any murmurs gallops or rubs. ABDOMEN: Soft and nontender with normal bowel sounds. SKIN: Skin is clear with no lesions or rashes and otherwise unremarkable. NEUROLOGIC: Patient is alert and oriented x3. Cranial nerves II through XII are grossly intact. Motor and sensory are also intact. Normal speech, volume and content. Symmetrical smile. MUSCULOSKELETAL: Patient has chronic cellulitis of both legs and he just had both legs wrapped up from the foot all the way to the knee and at this point in time I did not unwrap them but he has no complaints of leg pain. LYMPHATICS: No significant lymphadenopathy is noted PSYCHIATRIC: Normal psychiatric evaluation. - Labs CBC & Chem 7: 06/06/24 05:39 06/06/24 05:39 Labs: Abnormal Lab Results - Last 24 Hours (Table) 06/05/24 06/06/24 06/06/24 Range/Units 16:20 05:39 05:39 RDW 18.8 H (11.5-15.5) % Plt Count 144 L (150-450) k/uL Lymphocytes # 0.3 L (1.0-4.8) k/uL Chloride 94 L (98-107) mmol/L Carbon Dioxide 38 H (22-30) mmol/L BUN 49 H (9-20) mg/dL Creatinine 1.58 H (0.66-1.25) mg/dL Glucose 279 H (74-99) mg/dL POC Glucose (mg/dL) 207 H (70-110) mg/dL Calcium 7.5 L (8.4-10.2) mg/dL 06/06/24 06/06/24 Range/Units 06:17 11:31 RDW (11.5-15.5) % Plt Count (150-450) k/uL Lymphocytes # (1.0-4.8) k/uL Chloride (98-107) mmol/L Carbon Dioxide (22-30) mmol/L BUN (9-20) mg/dL Creatinine (0.66-1.25) mg/dL Glucose (74-99) mg/dL POC Glucose (mg/dL) 260 H 157 H (70-110) mg/dL Calcium (8.4-10.2) mg/dL Assessment and Plan Assessment: 1. Pulmonary edema; patient has been placed on Lasix 40 mg IV every 8 hours -We will monitor strict SHERIE's, daily weights, low-salt and fluid restricted diet -Will consult cardiology 2. Hypercapnia; patient has history of COPD/asthma; mild exacerbation -Patient has been placed on DuoNeb nebulizer treatments 4 times daily and as needed; will add Solu-Medrol 40 mg IV every 12 hours; patient has been placed on Diamox to 50 mg twice daily -Pulmonary has been consulted 3. Atrial fibrillation; controlled ventricular response -Patient is anticoagulated on Eliquis; amiodarone 200 mg daily; metoprolol 150 mg twice daily 4. Hyperglycemia; uncontrolled diabetes mellitus with long-term insulin use -- Lantus 15 units SQ twice daily; NovoLog 5 units SQ AC -Will monitor Accu-Cheks before every meal and at bedtime with insulin sliding scale 5. Hypertension; metoprolol 150 mg daily; Lasix 40 mg IV every 8 hours 6. Hyperlipidemia; Lipitor 10 mg p.o. nightly 7. BPH; Proscar 5 mg daily DVT prophylaxis; SCDs/Eliquis CODE STATUS; full code
--- NOTE | 2024-06-06 15:20 | P.PN ---
Subjective Progress Note Date: 06/06/24 Principal diagnosis: Acute on chronic hypoxic and hypercapnic respiratory failure, multifactorial This is a 59-year-old white male familiar to my service, known history of multip le medical problems including severe end-stage COPD, obstructive sleep apnea syndrome, BiPAP dependent almost, history of chronic hypoxic and chronic hypercapnic respiratory failure, patient is frequently in the hospital with similar presentation each time. This time he was seen in the ER with worsening shortness of breath, and he noted that his O2 saturation has been getting less and less, patient is known to be noncompliant at times with his BiPAP. At any rate patient was seen in the ER, ABG showed relative hypoxia with a pO2 of 63 on 35% FiO2 84 pH of 7.24 patient had positive drug screen for oxycodone and benzodiazepines, patient was placed on BiPAP and I saw him in the ER, recommended that the patient goes on his usual treatment with bronchodilators, BiPAP, and diuretics. Patient himself is not a great historian and he was not a great historian today when I saw him in the ER as he was hypercapnic on BiPAP, lethargic but arousable and did not follow much instructions labs showed normal CBC, abnormal ABG as noted earlier, Bicarb of 39 BUN 55 creatinine 1.81 elevated BNP level, and chest x-ray showing evidence of pulmonary edema Patient was seen today on 06/06/2024, feeling a bit better today, breathing easier, patient is on bronchodilators and is also on BiPAP intermittently, now on 3 L nasal cannula does not seem to be in any distress, remains on diuretics for his congestive heart failure. Improving and he is almost back to baseline. WBC is 4.2 hemoglobin 13.1 electrolytes are normal bicarb is 38 BUN is 49 creatinine 1.58 Objective - Vital Signs Vital signs: Vital Signs Temp 98.0 F 06/06/24 09:04 Pulse 79 06/06/24 12:24 Resp 15 06/06/24 12:18 BP 96/58 06/06/24 12:18 Pulse Ox 95 06/06/24 12:18 FiO2 35 06/06/24 12:16 Intake & Output 06/05/24 06/06/24 06/06/24 18:59 06:59 18:59 Intake Total 118 540 720 Output Total 700 Balance -582 540 720 Weight 158.757 kg 153 kg Intake: Oral 118 540 720 Output: Urine 700 Other: Voiding Method Urinal Urinal Urinal Diaper Diaper Diaper # Voids 1 - Exam Physical exam: Reveals 62-year-old white male patient, morbidly obese currently on a BiPAP pressure of 12/5 with an FiO2 35%, intermittently on 3 L nasal cannula HEENT examination is grossly unremarkable. Mucous membranes are moist. No oral lesions. Neck supple. Full range of motion. No adenopathy thyromegaly or neck vein distention. Cardiovascular examination reveals an irregular rhythm and rate. S1-S2 normal. No S3 or S4. No discernible murmur noted. Lungs diminished breath sound bilaterally no rhonchi no wheezes ds bilaterally Abdomen soft bowel sounds are heard. No masses or tenderness. Extremities reveal 3+ bilateral lower extremity pitting edema. Blistering deb lulitis to right lower extremity wrapped with sterile dressing Skin: As noted above Neurologic: Lethargic ,no gross focal deficit Psychiatric: Lethargic arousable very uncooperative. - Labs CBC & Chem 7: 06/06/24 05:39 06/06/24 05:39 Labs: Abnormal Lab Results - Last 24 Hours (Table) 06/05/24 06/06/24 06/06/24 Range/Units 16:20 05:39 05:39 RDW 18.8 H (11.5-15.5) % Plt Count 144 L (150-450) k/uL Lymphocytes # 0.3 L (1.0-4.8) k/uL Chloride 94 L (98-107) mmol/L Carbon Dioxide 38 H (22-30) mmol/L BUN 49 H (9-20) mg/dL Creatinine 1.58 H (0.66-1.25) mg/dL Glucose 279 H (74-99) mg/dL POC Glucose (mg/dL) 207 H (70-110) mg/dL Calcium 7.5 L (8.4-10.2) mg/dL 06/06/24 06/06/24 Range/Units 06:17 11:31 RDW (11.5-15.5) % Plt Count (150-450) k/uL Lymphocytes # (1.0-4.8) k/uL Chloride (98-107) mmol/L Carbon Dioxide (22-30) mmol/L BUN (9-20) mg/dL Creatinine (0.66-1.25) mg/dL Glucose (74-99) mg/dL POC Glucose (mg/dL) 260 H 157 H (70-110) mg/dL Calcium (8.4-10.2) mg/dL Assessment and Plan Assessment: Impression: Acute on chronic hypoxemic, and hypercapnic respiratory failure, secondary to an exacerbation of chronic diastolic congestive heart failure along with a component of COPD exacerbation. Chest x-ray showing cardiomegaly, pulmonary vascular congestion, interstitial edema and some small bilateral pleural effusion. The patient would benefit from BiPAP, diuretic and bronchodilators and steroids. signs of CO2 narcosis and the patient is tolerating the BiPAP reasonably well at this point in time. Very severe chronic obstructive pulmonary disease, with an FEV1 22% of predicted Obstructive sleep apnea, patient is noncompliant with his noninvasive positive airway pressure machine Morbid obesity, with a BMI of 48.7 kg/m Chronic stage IIIa kidney disease Atrial fibrillation, anticoagulated with Eliquis/chronic persistent Chronic lower extremity edema, with multiple venous stasis ulcers, History of hypertension History of hyperlipidemia Former tobacco dependence Severe cellulitis of right lower extremity, s/p debridement, chronic Recommendation: Continue BiPAP Continue bronchodilators Continue diuretics, Lasix 40 mg IV push every 8 hours Resume home meds GI and DVT prophylaxis Will continue to follow Prognosis remains poor and guarded in the long-term Time with Patient: Less than 30
[2024-06-06 16:13] LABS: Glucose,Whole Blood 272 mg/dL (70-110)
[2024-06-06 20:17] LABS: Glucose,Whole Blood 261 mg/dL (70-110)
[2024-06-06] MEDS: hydrOXYzine pamoate 25 MG CAP PO PRN (21:04)
[2024-06-07 06:02] LABS: Glucose,Whole Blood 219 mg/dL (70-110)
[2024-06-07 09:23] LABS: Anisocytosis Slight; Basophils % (A) 0 %; Eosinophils % (A) 0 %; HCT 47.1 % (39.0-53.0); HGB 15.2 gm/dL (13.0-17.5); Hypochromasia Slight; Lymphocytes # (A) 0.4 k/uL (1.0-4.8); Lymphocytes % (A) 5 %; MCH 29.4 pg (25.0-35.0); MCHC 32.2 g/dL (31.0-37.0); MCV 91.2 fL (80.0-100.0); Mean Platelet Volume 8.4; Monocytes # (A) 0.5 k/uL (0-1.0); Monocytes % (A) 7 %; Neutrophils # (A) 6.5 k/uL (1.3-7.7); Neutrophils % (A) 87 %; Platelet Count 205 k/uL (150-450); Poikilocytosis Moderate; RBC 5.17 m/uL (4.30-5.90); RDW 18.4 % (11.5-15.5); WBC 7.5 k/uL (3.8-10.6)
[2024-06-07 09:48] LABS: African American GFR (CKD) 55 (>60 ml/min/1.73 sqM); Anion Gap 5 mmol/L; Blood Urea Nitrogen 50 mg/dL (9-20); Calcium 8.1 mg/dL (8.4-10.2); Carbon Dioxide 36 mmol/L (22-30); Chloride 93 mmol/L (98-107); Glucose 150 mg/dL (74-99); Non-African American GFR(CKD) 48 (>60 ml/min/1.73 sqM); Potassium 4.7 mmol/L (3.5-5.1); Sodium 134 mmol/L (137-145)
[2024-06-07 11:43] LABS: Glucose,Whole Blood 295 mg/dL (70-110)
--- NOTE | 2024-06-07 12:11 | P.PN ---
Subjective Progress Note Date: 06/07/24 Reason for Consult (text): Pulmonary edema History of present illness: This is 59-year-old male patient of Dr. Dickerson with past medical history of chronic diastolic heart failure, diabetes mellitus type 2, chronic kidney disease stage III, hypertension, hyperlipidemia, persistent atrial fibrillation with recent cardioversion 04/08/2024, end-stage COPD, obstructive sleep apnea, morbid obesity. We have been asked to evaluate the patient for pulmonary edema. Patient states that at the residential he was very short of breath but he did not really feel it. He thinks it may have affected his mental status. Patient had a drop in his pulse ox. He also has lower extremity edema. No fever or chills. He has been started on Lasix 40 mg every 8 hours and he feels that his breathing is somewhat improved this morning. Blood pressure 122/71, heart rate 88, pulse ox 93% on 4 L. -EKG: Atrial fibrillation at 66 bpm -Chest x-ray: Prominent pulmonary vascular markings correlate for atelectasis or pneumonia. Atypical pulmonary edema may be considered. Consider developing heart failure. -Laboratory studies: Hemoglobin 13.1, WBC 4.2, platelet count 144. Sodium 137, potassium 4.3, initial BUN 55 and creatinine 1.81 with repeat of BUN 49 creatinine 1.58. Troponin negative x 1. proBNP 9140. Urine drug screen positive for oxycodone and benzodiazepines. Influenza A, influenza B, RSV, COVID-19 not detected. -Home cardiac medications: Diamox 250 mg twice daily, amiodarone 200 mg daily, Eliquis 5 mg twice daily, atorvastatin 10 mg at bedtime, Farxiga 10 mg daily, finasteride 5 mg daily, Lopressor 150 mg twice daily, Aldactone 25 mg daily, Demadex 10 mg daily. -JESS and cardioversion 04/08/2024 -Echocardiogram performed 12/13/2023: EF 60 to 65%, moderate concentric LVH, severe LA dilatation. -Lexiscan stress test performed 07/20/2022 revealed no evidence of reversible ischemia. -Radiofrequency ablation for typical atrial flutter 07/27/2021 06/07/2024 Patient seen and examined. Blood pressure 154/75, heart rate 96, pulse ox 95% on 4 L nasal cannula. Patient has been maintained on IV Lasix 40 mg every 8 hours. Lungs are clear but he continues to have lower extremity edema. Physical examination: Gen: This is a 59-year-old morbidly obese male in no acute distress VS: reviewed HEENT: Head is atraumatic, normocephalic. Pupils equal, round. Sclerae is anicteric. NECK: Supple. No JVD. LUNGS: Clear to auscultation. No wheezes or rhonchi. No intercostal retractions. HEART: Irregular rate and rhythm. ABDOMEN: Soft No tenderness. EXTREMITIES: Bilateral lower extremity edema. Gonzalez wraps bilaterally. NEUROLOGICAL: Patient is awake, alert and oriented x3. Assessment: Acute on chronic diastolic heart failure Persistent atrial fibrillation Diabetes mellitus type 2 Chronic kidney disease stage III Hypertension Hyperlipidemia End-stage COPD Obstructive sleep apnea Morbid obesity with BMI of 44 Plan: Continue patient's home cardiac medications Continue IV Lasix 40 mg every 8 hours another 24 hours Monitor SHERIE, daily weight, electrolytes and renal function Obtain echocardiogram Further recommendations to follow based upon clinical course Thank you kindly for this consultation. Nurse practitioner note has been reviewed, I agree with documented findings and plan of care. Patient was seen and examined. Objective - Vital Signs Vital signs: Vital Signs Temp 98.4 F 06/07/24 08:58 Pulse 96 06/07/24 08:58 Resp 19 06/07/24 08:58 BP 154/75 06/07/24 08:58 Pulse Ox 95 06/07/24 08:58 FiO2 35 06/07/24 00:24 Intake & Output 06/06/24 06/07/24 06/07/24 18:59 06:59 18:59 Intake Total 838 118 Output Total 600 Balance 238 118 Weight 153.2 kg Intake: Oral 838 118 Output: Urine 600 Other: Voiding Method Urinal Urinal Diaper Diaper # Voids 1 - Labs CBC & Chem 7: 06/07/24 09:07 06/07/24 09:07 Labs: Abnormal Lab Results - Last 24 Hours (Table) 06/06/24 06/06/24 06/06/24 Range/Units 11:31 16:11 20:16 POC Glucose (mg/dL) 157 H 272 H 261 H (70-110) mg/dL 06/07/24 Range/Units 06:01 POC Glucose (mg/dL) 219 H (70-110) mg/dL
--- NOTE | 2024-06-07 14:37 | P.PN ---
Subjective Progress Note Date: 06/07/24 Principal diagnosis: Acute on chronic hypoxic and hypercapnic respiratory failure, multifactorial This is a 59-year-old white male familiar to my service, known history of multip le medical problems including severe end-stage COPD, obstructive sleep apnea syndrome, BiPAP dependent almost, history of chronic hypoxic and chronic hypercapnic respiratory failure, patient is frequently in the hospital with similar presentation each time. This time he was seen in the ER with worsening shortness of breath, and he noted that his O2 saturation has been getting less and less, patient is known to be noncompliant at times with his BiPAP. At any rate patient was seen in the ER, ABG showed relative hypoxia with a pO2 of 63 on 35% FiO2 84 pH of 7.24 patient had positive drug screen for oxycodone and benzodiazepines, patient was placed on BiPAP and I saw him in the ER, recommended that the patient goes on his usual treatment with bronchodilators, BiPAP, and diuretics. Patient himself is not a great historian and he was not a great historian today when I saw him in the ER as he was hypercapnic on BiPAP, lethargic but arousable and did not follow much instructions labs showed normal CBC, abnormal ABG as noted earlier, Bicarb of 39 BUN 55 creatinine 1.81 elevated BNP level, and chest x-ray showing evidence of pulmonary edema Patient was seen today on 06/06/2024, feeling a bit better today, breathing easier, patient is on bronchodilators and is also on BiPAP intermittently, now on 3 L nasal cannula does not seem to be in any distress, remains on diuretics for his congestive heart failure. Improving and he is almost back to baseline. WBC is 4.2 hemoglobin 13.1 electrolytes are normal bicarb is 38 BUN is 49 creatinine 1.58 Seen today on 06/07/2024, patient is doing well today, less shortness of breath less cough, no wheezing, no chest pain, no fever, no chills, no hemoptysis presently on 3 L nasal cannula, and his O2 saturation is 100% hemodynamically stable blood pressure is 116/73. WBC count is 7.5 hemoglobin is 15.2 basic metabolic profile is normal bicarb is 36 BUN 50 creatinine 1.55, steadily improving compared to creatinine of 1.81 on admission Objective - Vital Signs Vital signs: Vital Signs Temp 98.4 F 06/07/24 08:58 Pulse 82 06/07/24 11:32 Resp 17 06/07/24 11:00 BP 116/73 06/07/24 11:00 Pulse Ox 100 06/07/24 11:00 FiO2 35 06/07/24 00:24 Intake & Output 06/06/24 06/07/24 06/07/24 18:59 06:59 18:59 Intake Total 838 358 Output Total 600 350 Balance 238 8 Weight 153.2 kg Intake: Oral 838 358 Output: Urine 600 350 Other: Voiding Method Urinal Urinal Urinal Diaper Diaper Diaper # Voids 1 1 - Exam Physical exam: Reveals 62-year-old white male patient, morbidly obese currently on 3 L nasal cannula, BiPAP is at bedside HEENT examination is grossly unremarkable. Mucous membranes are moist. No oral lesions. Neck supple. Full range of motion. No adenopathy thyromegaly or neck vein distention. Cardiovascular examination reveals an irregular rhythm and rate. S1-S2 normal. No S3 or S4. No discernible murmur noted. Lungs diminished breath sound bilaterally no rhonchi no wheezes Abdomen soft bowel sounds are heard. No masses or tenderness. Extremities reveal 2+ bilateral lower extremity pitting edema. Both lower extremities are wrapped with sterile dressing Skin: As noted above Neurologic: Alert oriented x 3 no gross focal neurologic deficit Psychiatric: Normal mood affect and no mental status examination - Labs CBC & Chem 7: 06/07/24 09:07 06/07/24 09:07 Labs: Abnormal Lab Results - Last 24 Hours (Table) 06/06/24 06/06/24 06/07/24 Range/Units 16:11 20:16 06:01 RDW (11.5-15.5) % Lymphocytes # (1.0-4.8) k/uL Sodium (137-145) mmol/L Chloride (98-107) mmol/L Carbon Dioxide (22-30) mmol/L BUN (9-20) mg/dL Creatinine (0.66-1.25) mg/dL Glucose (74-99) mg/dL POC Glucose (mg/dL) 272 H 261 H 219 H (70-110) mg/dL Calcium (8.4-10.2) mg/dL 06/07/24 06/07/24 06/07/24 Range/Units 09:07 09:07 11:40 RDW 18.4 H (11.5-15.5) % Lymphocytes # 0.4 L (1.0-4.8) k/uL Sodium 134 L (137-145) mmol/L Chloride 93 L (98-107) mmol/L Carbon Dioxide 36 H (22-30) mmol/L BUN 50 H (9-20) mg/dL Creatinine 1.55 H (0.66-1.25) mg/dL Glucose 150 H (74-99) mg/dL POC Glucose (mg/dL) 295 H (70-110) mg/dL Calcium 8.1 L (8.4-10.2) mg/dL Assessment and Plan Assessment: Impression: Acute on chronic hypoxemic, and hypercapnic respiratory failure, secondary to an exacerbation of chronic diastolic congestive heart failure along with a component of COPD exacerbation. Chest x-ray showing cardiomegaly, pulmonary vascular congestion, interstitial edema and some small bilateral pleural effusion. The patient would benefit from BiPAP, diuretic and bronchodilators and steroids. signs of CO2 narcosis and the patient is tolerating the BiPAP reasonably well at this point in time. Very severe chronic obstructive pulmonary disease, with an FEV1 22% of predicted Obstructive sleep apnea, patient is noncompliant with his noninvasive positive airway pressure machine Morbid obesity, with a BMI of 48.7 kg/m Chronic stage IIIa kidney disease Atrial fibrillation, anticoagulated with Eliquis/chronic persistent Chronic lower extremity edema, with multiple venous stasis ulcers, History of hypertension History of hyperlipidemia Former tobacco dependence Severe cellulitis of right lower extremity, s/p debridement, chronic Recommendation: Continue present supportive care measures Continue alternating nasal cannula and BiPAP Continue bronchodilators Continue diuretics, Lasix 40 mg IV push every 8 hours, continue Diamox to 50 mg p.o. twice daily Continue amiodarone Continue Eliquis Continue methylprednisolone 40 mg IV push every 8 hours Resume home meds GI and DVT prophylaxis Will continue to follow Prognosis remains poor and guarded in the long-term Time with Patient: Less than 30
--- NOTE | 2024-06-07 15:26 | P.PN ---
Subjective Progress Note Date: 06/07/24 59-year-old male, history of hypertension, hyperlipidemia, atrial fibrillation, asthma/COPD, sleep apnea, who [facility] because he was more lethargic and his pulse ox was low at the [facility]. Patient normally is on 2 L of oxygen at home. Patient himself wakes up and has no complaints however he is quick to go back to sleep. Patient has had no history of fever or chills patient denied any chest pain or palpitation. Patient has any abdominal pain patient has nausea vomiting diarrhea Blood work reveals WBC of 5.3, hemoglobin of 13.6 and platelet count of 144, sodium 138, potassium 4.6, BUNs/creatinine of 55/1.8 and blood glucose of 155, magnesium elevated at 2.5, lactic acid level of 1.5, troponin 0.023, ABG reveals pH of 7.24, pCO2 of 84, pO2 of 63; patient is admitted for further treatment for pulmonary edema hypercapnia Chest x-ray completed in ED reveals pulmonary edema 24-hour interval change 06/07/2024, -Patient is seen and evaluated in room at bedside; patient is doing well today, less shortness of breath less cough, no wheezing, no chest pain, no fever, no chills, no hemoptysis --presently on 3 L nasal cannula, and his O2 saturation is 100% hemodynamically stable blood pressure is 116/73. Review shows WBC count is 7.5 hemoglobin is 15.2 basic metabolic profile is normal bicarb is 36 BUN 50 creatinine 1.55, steadily improving compared to creatinine of 1.81 on admission Continue bronchodilators and methylprednisolone 40 mg IV every 8 hours Continue diuretics, Lasix 40 mg IV push every 8 hours, continue Diamox to 50 mg p.o. twice daily Continue amiodarone and Eliquis Objective - Vital Signs Vital signs: Vital Signs Temp 98.4 F 06/07/24 08:58 Pulse 96 06/07/24 08:58 Resp 19 06/07/24 08:58 BP 154/75 06/07/24 08:58 Pulse Ox 95 06/07/24 08:58 FiO2 35 06/07/24 00:24 Intake & Output 06/06/24 06/07/24 06/07/24 18:59 06:59 18:59 Intake Total 838 118 Output Total 600 350 Balance 238 -232 Weight 153.2 kg Intake: Oral 838 118 Output: Urine 600 350 Other: Voiding Method Urinal Urinal Urinal Diaper Diaper Diaper # Voids 1 1 - Exam Patient is well-developed and well-nourished. Patient is nontoxic and well- hydrated and is in no acute distress. Patient is very tired and goes to sleep quickly. Once I wake the patient up he is alert and oriented. ENT: Neck is soft and supple. No significant lymphadenopathy is noted. Oropharynx is clear. Moist mucous membranes. Neck has full range of motion without eliciting any pain. EYES: The sclera were anicteric and conjunctiva were pink and moist. Extraocular movements were intact and pupils were equal round and reactive to light. Eyelids were unremarkable. PULMONARY: Unlabored respirations. Good breath sounds bilaterally. No audible rales rhonchi or wheezing was noted. CARDIOVASCULAR: There is a regular rate and rhythm without any murmurs gallops or rubs. ABDOMEN: Soft and nontender with normal bowel sounds. SKIN: Skin is clear with no lesions or rashes and otherwise unremarkable. NEUROLOGIC: Patient is alert and oriented x3. Cranial nerves II through XII are grossly intact. Motor and sensory are also intact. Normal speech, volume and content. Symmetrical smile. MUSCULOSKELETAL: Patient has chronic cellulitis of both legs and he just had both legs wrapped up from the foot all the way to the knee and at this point in time I did not unwrap them but he has no complaints of leg pain. LYMPHATICS: No significant lymphadenopathy is noted PSYCHIATRIC: Normal psychiatric evaluation. - Labs CBC & Chem 7: 06/07/24 09:07 06/07/24 09:07 Labs: Abnormal Lab Results - Last 24 Hours (Table) 06/06/24 06/06/24 06/06/24 Range/Units 11:31 16:11 20:16 RDW (11.5-15.5) % Lymphocytes # (1.0-4.8) k/uL Sodium (137-145) mmol/L Chloride (98-107) mmol/L Carbon Dioxide (22-30) mmol/L BUN (9-20) mg/dL Creatinine (0.66-1.25) mg/dL Glucose (74-99) mg/dL POC Glucose (mg/dL) 157 H 272 H 261 H (70-110) mg/dL Calcium (8.4-10.2) mg/dL 06/07/24 06/07/24 06/07/24 Range/Units 06:01 09:07 09:07 RDW 18.4 H (11.5-15.5) % Lymphocytes # 0.4 L (1.0-4.8) k/uL Sodium 134 L (137-145) mmol/L Chloride 93 L (98-107) mmol/L Carbon Dioxide 36 H (22-30) mmol/L BUN 50 H (9-20) mg/dL Creatinine 1.55 H (0.66-1.25) mg/dL Glucose 150 H (74-99) mg/dL POC Glucose (mg/dL) 219 H (70-110) mg/dL Calcium 8.1 L (8.4-10.2) mg/dL Assessment and Plan Assessment: 1. Pulmonary edema; patient has been placed on Lasix 40 mg IV every 8 hours -We will monitor strict SHEREI's, daily weights, low-salt and fluid restricted diet -Will consult cardiology 2. Hypercapnia; patient has history of COPD/asthma; mild exacerbation -Patient has been placed on DuoNeb nebulizer treatments 4 times daily and as needed; will add Solu-Medrol 40 mg IV every 12 hours; patient has been placed on Diamox to 50 mg twice daily -Pulmonary has been consulted 3. Atrial fibrillation; controlled ventricular response -Patient is anticoagulated on Eliquis; amiodarone 200 mg daily; metoprolol 150 mg twice daily 4. Hyperglycemia; uncontrolled diabetes mellitus with long-term insulin use -- Lantus 15 units SQ twice daily; NovoLog 5 units SQ AC -Will monitor Accu-Cheks before every meal and at bedtime with insulin sliding scale 5. Hypertension; metoprolol 150 mg daily; Lasix 40 mg IV every 8 hours 6. Hyperlipidemia; Lipitor 10 mg p.o. nightly 7. BPH; Proscar 5 mg daily DVT prophylaxis; SCDs/Eliquis CODE STATUS; full code
[2024-06-07 16:44] LABS: Glucose,Whole Blood 248 mg/dL (70-110)
[2024-06-07 20:14] LABS: Glucose,Whole Blood 250 mg/dL (70-110)
[2024-06-08 06:30] LABS: Glucose,Whole Blood 274 mg/dL (70-110)
[2024-06-08 08:25] LABS: African American GFR (CKD) 43 (>60 ml/min/1.73 sqM); Blood Urea Nitrogen 57 mg/dL (9-20); Chloride 90 mmol/L (98-107); Glucose 242 mg/dL (74-99); Non-African American GFR(CKD) 37 (>60 ml/min/1.73 sqM); Potassium 4.7 mmol/L (3.5-5.1); Sodium 136 mmol/L (137-145)
[2024-06-08 08:32] LABS: Anion Gap 12 mmol/L; Carbon Dioxide 34 mmol/L (22-30)
[2024-06-08] MEDS: FUROSEMIDE 10 MG/ML 4 ML VIAL IV SCH (08:43)
--- NOTE | 2024-06-08 08:55 | P.PN ---
Subjective 59-year-old male, history of hypertension, hyperlipidemia, atrial fibrillation, asthma/COPD, sleep apnea, who comes from the snf because he was more lethargic and his pulse ox was low at the snf. Patient normally is on 2 L of oxygen at home. Patient himself wakes up and has no complaints however he is quick to go back to sleep. Patient has had no history of fever or chills patient denied any chest pain or palpitation. Patient has any abdominal pain patient has nausea vomiting diarrhea Blood work reveals WBC of 5.3, hemoglobin of 13.6 and platelet count of 144, sodium 138, potassium 4.6, BUNs/creatinine of 55/1.8 and blood glucose of 155, magnesium elevated at 2.5, lactic acid level of 1.5, troponin 0.023, ABG reveals pH of 7.24, pCO2 of 84, pO2 of 63; patient is admitted for further treatment for pulmonary edema hypercapnia Chest x-ray completed in ED reveals pulmonary edema 24-hour interval change 06/07/2024, -Patient is seen and evaluated in room at bedside; patient is doing well today, less shortness of breath less cough, no wheezing, no chest pain, no fever, no chills, no hemoptysis --presently on 3 L nasal cannula, and his O2 saturation is 100% hemodynamically stable blood pressure is 116/73. Review shows WBC count is 7.5 hemoglobin is 15.2 basic metabolic profile is normal bicarb is 36 BUN 50 creatinine 1.55, steadily improving compared to creatinine of 1.81 on admission Continue bronchodilators and methylprednisolone 40 mg IV every 8 hours Continue diuretics, Lasix 40 mg IV push every 8 hours, continue Diamox to 50 mg p.o. twice daily Continue amiodarone and Eliquis 06/08 Patient is awake alert, sitting at the bedside, looks tired. Patient has been using BiPAP machine all night but he could not sleep well because of frequent epistaxis happened last night. Currently epistaxis is stopp ed. No other bleeding from anywhere else. No headache dizziness or new weakness numbness. No chest pain. He still complaining from dyspnea but improving, leg swelling is better. No other GI/ symptom He is currently on 4 L oxygen via nasal cannula, at home he was using 2 L. I discussed the risk and benefits of anticoagulation including Eliquis and he agrees. Eliquis was resumed and we will going to monitor for bleeding. He is currently on Protonix 40 mg p.o. daily Review of systems CONSTITUTIONAL: No fever, no malaise, no fatigue. CARDIOVASCULAR: No orthopnea, PND, no palpitations, no syncope. NEUROLOGICAL: No headaches, no weakness, no numbness. HEMATOLOGICAL: Denies any bleeding or petechiae. GENITOURINARY: Denies any burning micturition, frequency, or urgency. MUSCULOSKELETAL/RHEUMATOLOGICAL: Denies any joint pain, swelling, or any muscle pain. ENDOCRINE: Denies any polyuria or polydipsia. Active Medications Generic Name Dose Route Start Last Admin Trade Name Freq PRN Reason Stop Dose Admin Acetazolamide 250 mg 06/04/24 21:00 06/08/24 08:43 Acetazolamide 250 Mg Tab PO 250 mg BID OBI Administration Albuterol/Ipratropium 3 ml 06/04/24 18:50 Ipratropium-Albuterol 3 Ml Neb INHALATION RT-Q2H PRN Shortness Of Breath Or Wheezing Albuterol/Ipratropium 3 ml 06/04/24 20:00 06/08/24 08:47 Ipratropium-Albuterol 3 Ml Neb INHALATION 3 ml RT-QID OBI Administration Apixaban 5 mg 06/04/24 21:00 06/08/24 08:43 Apixaban 5 Mg Tab PO 5 mg BID OBI Administration Protocol Atorvastatin Calcium 20 mg 06/08/24 21:00 Atorvastatin 20 Mg Tab PO HS OBI Budesonide/Formoterol Fumarate 2 puff 06/04/24 20:00 06/08/24 08:48 Symbicort 160-4.5 Mcg Inhaler INHALATION 2 puff RT-BID OBI Administration Buspirone HCl 5 mg 06/04/24 22:00 06/08/24 08:43 Buspirone Hcl 5 Mg Tab PO 5 mg TID BOI Administration Finasteride 5 mg 06/05/24 09:00 06/08/24 08:43 Finasteride 5 Mg Tab PO 5 mg DAILY OBI Administration Furosemide 40 mg 06/08/24 08:00 06/08/24 08:43 Furosemide 10 Mg/Ml 4 Ml Vial IV 40 mg Q12H OBI Administration Hydroxyzine Pamoate 50 mg 06/05/24 11:52 06/06/24 21:04 Hydroxyzine Pamoate 25 Mg Cap PO 50 mg HS PRN Administration ANXIETY/INSOMNIA Insulin Aspart 5 unit 06/05/24 12:30 06/08/24 07:03 Insulin Aspart (Novolog) 100 Unit/Ml Vial SQ 5 unit AC-TID OBI Administration Insulin Detemir 15 unit 06/05/24 21:00 06/08/24 07:03 Insulin Detemir (Levemir) 100 Unit/Ml Syr SQ 15 unit BID@0700,2100 OBI Administration Methylprednisolone Sodium Succinate 40 mg 06/05/24 16:30 06/08/24 08:43 Methylprednisolone Sod Succi 40 Mg/Ml 1 Ml Vial IV 40 mg Q8HR OBI Administration Metoprolol Tartrate 150 mg 06/04/24 21:00 06/08/24 08:43 Metoprolol Tartrate 50 Mg Tab PO 150 mg BID OBI Administration Naloxone HCl 0.2 mg 06/05/24 11:57 Naloxone 0.4 Mg/Ml 1 Ml Vial IVP Q2M PRN Opioid Reversal Oxycodone/Acetaminophen 1 each 06/05/24 11:52 06/08/24 07:02 Oxycodone-Apap 7.5-325mg 1 Each Tab PO 1 each Q6HR PRN Administration Pain Pantoprazole Sodium 40 mg 06/05/24 07:30 06/08/24 07:03 Pantoprazole 40 Mg Tablet PO 40 mg AC-BRKFST OBI Administration Pregabalin 50 mg 06/04/24 21:00 06/08/24 08:43 Pregabalin 50 Mg Cap PO 50 mg BID OBI Administration Prochlorperazine Maleate 10 mg 06/04/24 18:50 Prochlorperazine 10 Mg Tab PO Q8H PRN Nausea And Vomiting Sertraline HCl 50 mg 06/05/24 09:00 06/08/24 08:43 Sertraline 50 Mg Tab PO 50 mg DAILY OBI Administration Spironolactone 25 mg 06/05/24 09:00 06/08/24 08:43 Spironolactone 25 Mg Tab PO 25 mg DAILY OBI Administration Tamsulosin HCl 0.4 mg 06/04/24 21:00 06/07/24 21:11 Tamsulosin 0.4 Mg Cap.Er.24h PO 0.4 mg HS OBI Administration Objective - Vital Signs Vital signs: Vital Signs Temp 98.4 F 06/08/24 03:23 Pulse 84 06/08/24 03:23 Resp 20 06/08/24 03:23 BP 138/81 06/08/24 03:23 Pulse Ox 93 L 06/08/24 03:23 FiO2 35 06/08/24 04:59 Intake & Output 06/07/24 06/08/24 06/08/24 18:59 06:59 18:59 Intake Total 358 118 Output Total 350 350 Balance 8 -350 118 Weight 153 kg Intake: Oral 358 118 Output: Urine 350 350 Other: Voiding Method Urinal Urinal Diaper Diaper # Voids 1 1 - Exam -GENERAL: The patient is alert and oriented x3, not in any acute distress. Well developed, well nourished. Obese. Looks tired HEENT: Pupils are round and equally reacting to light. EOMI. No scleral icterus. No conjunctival pallor. Normocephalic, atraumatic. No pharyngeal erythema. No thyromegaly. CARDIOVASCULAR: S1 and S2 present. No murmurs, rubs, or gallops. -PULMONARY: Chest is clear to auscultation, no wheezing , no crackles. Decreased air entry on both sides ABDOMEN: Soft, nontender, nondistended, normoactive bowel sounds. No palpable organomegaly. MUSCULOSKELETAL: No joint swelling or deformity. EXTREMITIES: No cyanosis, clubbing, or pedal edema. NEUROLOGICAL: Gross neurological examination did not reveal any focal deficits. SKIN: No rashes. no petechiae. - Labs CBC & Chem 7: 06/07/24 09:07 06/08/24 06:16 Labs: Abnormal Lab Results - Last 24 Hours (Table) 06/07/24 06/07/24 06/07/24 Range/Units 09:07 09:07 11:40 RDW 18.4 H (11.5-15.5) % Lymphocytes # 0.4 L (1.0-4.8) k/uL Sodium 134 L (137-145) mmol/L Chloride 93 L (98-107) mmol/L Carbon Dioxide 36 H (22-30) mmol/L BUN 50 H (9-20) mg/dL Creatinine 1.55 H (0.66-1.25) mg/dL Glucose 150 H (74-99) mg/dL POC Glucose (mg/dL) 295 H (70-110) mg/dL Calcium 8.1 L (8.4-10.2) mg/dL 06/07/24 06/07/24 06/08/24 Range/Units 16:42 20:13 06:16 RDW (11.5-15.5) % Lymphocytes # (1.0-4.8) k/uL Sodium 136 L (137-145) mmol/L Chloride 90 L (98-107) mmol/L Carbon Dioxide 34 H (22-30) mmol/L BUN 57 H (9-20) mg/dL Creatinine 1.92 H (0.66-1.25) mg/dL Glucose 242 H (74-99) mg/dL POC Glucose (mg/dL) 248 H 250 H (70-110) mg/dL Calcium (8.4-10.2) mg/dL 06/08/24 Range/Units 06:29 RDW (11.5-15.5) % Lymphocytes # (1.0-4.8) k/uL Sodium (137-145) mmol/L Chloride (98-107) mmol/L Carbon Dioxide (22-30) mmol/L BUN (9-20) mg/dL Creatinine (0.66-1.25) mg/dL Glucose (74-99) mg/dL POC Glucose (mg/dL) 274 H (70-110) mg/dL Calcium (8.4-10.2) mg/dL Assessment and Plan Assessment: 1. Pulmonary edema 2. Hypercapnia; patient has history of COPD/asthma; mild exacerbation 3. Atrial fibrillation; controlled ventricular response 4. Hyperglycemia; uncontrolled diabetes mellitus with long-term insulin use -- Lantus 15 units SQ twice daily; NovoLog 5 units SQ AC -Will monitor Accu-Cheks before every meal and at bedtime with insulin sliding scale 5. Hypertension; metoprolol 150 mg daily 6. Hyperlipidemia; 7. BPH Plan: Continue with IV Lasix, lowered to twice per day. Amiodarone was discontinued by uppers edge burnisher Continued on metoprolol 150 twice daily Continue with insulin Resumed Eliquis with risk and benefits explained for him and he is agreeable. Patient still at risk of bleeding and will be monitored closely Cardiology and pulmonary consult Labs and medication were reviewed.. Continue same treatment. Continue with symptomatic treatment. Resume home medication. Monitor labs and vitals. DVT and GI prophylaxis. Further recommendations as per clinical course of the patient DVT prophylaxis: S Eliquis GI Prophylaxis: Protonix PT/OT: Pending Prognosis is guarded
[2024-06-08 08:56] LABS: Calcium 8.5 mg/dL (8.4-10.2)
[2024-06-08 11:30] LABS: Glucose,Whole Blood 243 mg/dL (70-110)
--- NOTE | 2024-06-08 11:54 | CA ---
Transthoracic Echo Report Name: Meir Abraham Age: 59 Gender: M : 1965 Exam Date: 06/08/2024 08:22 Exam Location: [facility] Ht (in): 73 Wt (lb): 337 Ordering Physician: Fabiola Garcia Attending/Referring Phys: [id number], Radha Sizing End Bander Jelly Villareal RDCS Procedure CPT: Indications: LVF Cardiac Hx: Technical Quality: Technically difficult study Contrast 1: Definity Total Dose (mL): 1 Contrast 2: Total Dose (mL): MEASUREMENTS (Male / Female) Normal Values 2D ECHO LV Diastolic Diameter PLAX 4.3 cm 4.2 - 5.9 / 3.9 - 5.3 cm LV Systolic Diameter PLAX 3.2 cm IVS Diastolic Thickness 1.8 cm 0.6 - 1.0 / 0.6 - 0.9 cm LVPW Diastolic Thickness 1.7 cm 0.6 - 1.0 / 0.6 - 0.9 cm LV Relative Wall Thickness 0.8 LVOT Diameter 2.2 cm LV Diastolic Volume MOD BP 180.4 cm??? 67 - 155 / 56 - 104 cm??? LV Systolic Volume MOD BP 59.8 cm??? 22 - 58 / 19 - 49 cm??? LV Ejection Fraction MOD BP 66.9 % >= 55 % LV Cardiac Index MOD BP 3102.9 cm???/min???m??? LV Diastolic Volume MOD 4C 190.5 cm??? LV Systolic Volume MOD 4C 55.4 cm??? LV Ejection Fraction MOD 4C 70.9 % LV Cardiac Index MOD 4C 3474.9 cm???/min???m??? LV Diastolic Length 4C 9.6 cm LV Systolic Length 4C 7.8 cm LV Diastolic Volume MOD 2C 156.9 cm??? LV Systolic Volume MOD 2C 63.4 cm??? LV Ejection Fraction MOD 2C 59.6 % LV Cardiac Index MOD 2C 2404.0 cm???/min???m??? LV Diastolic Length 2C 8.7 cm LV Systolic Length 2C 7.5 cm LA Volume 151.2 cm??? 18 - 58 / 22 - 52 cm??? LA Volume Index 52.6 cm???/m??? 16 - 28 cm???/m??? Ascending Aorta Diameter 3.8 cm DOPPLER AV Peak Velocity 83.8 cm/s AV Peak Gradient 2.8 mmHg AV Mean Velocity 66.5 cm/s AV Mean Gradient 1.9 mmHg AV Velocity Time Integral 17.7 cm LVOT Peak Velocity 64.2 cm/s LVOT Peak Gradient 1.6 mmHg LVOT Velocity Time Integral 12.2 cm LVOT Stroke Volume 47.9 cm??? LVOT Stroke Volume Index 17.8 ml/m??? LVOT Cardiac Index 1233.5 cm???/min???m??? AV Area Cont Eq vti 2.7 cm??? AV Area Cont Eq pk 3.0 cm??? TR Peak Velocity 215.2 cm/s TR Peak Gradient 18.5 mmHg Right Atrial Pressure 10.0 mmHg Pulmonary Artery Systolic Pressu 28.5 mmHg Right Ventricular Systolic Press 28.5 mmHg PV Peak Velocity 81.1 cm/s PV Peak Gradient 2.6 mmHg FINDINGS Left Ventricle Left ventricular ejection fraction is estimated at 60-65 %. Severely increased septal wall thickness. Moderately increased left ventricular diastolic volume. Mildly increased left ventricular systolic volume. No obvious regional wall motion abnormalities. Right Ventricle Right ventricle not well visualized. Right ventricular systolic pressure within normal limits. Right Atrium Right atrium not well visualized. Left Atrium Severely increased left atrial volume. Moderately increased left atrial area. Mitral Valve Structurally normal mitral valve. No mitral stenosis, regurgitation or prolapse. Aortic Valve Aortic valve not well visualized. No aortic valve stenosis or regurgitation. Tricuspid Valve Structurally normal tricuspid valve. No tricuspid stenosis. Trace tricuspid regurgitation. Pulmonic Valve Pulmonic valve not well visualized. Pericardium Small pericardial effusion. Aorta Normal size aortic root and proximal ascending aorta. CONCLUSIONS Technically difficult study. Echo contrast was used. LV size and systolic function is normal. Valvular structures are poorly visualized in Doppler exam is suboptimal. Probable small pericardial effusion Previewed by: Dr. Tonia Ramos MD (Electronically Signed) Final Date: 08 June 2024 11:53
--- NOTE | 2024-06-08 15:14 | P.PN ---
Subjective Progress Note Date: 06/08/24 Principal diagnosis: Respiratory failure. This is a 59-year-old white male familiar to my service, known history of multiple medical problems including severe end-stage COPD, obstructive sleep apnea syndrome, BiPAP dependent almost, history of chronic hypoxic and chronic hypercapnic respiratory failure, patient is frequently in the hospital with similar presentation each time. This time he was seen in the ER with worsening shortness of breath, and he noted that his O2 saturation has been getting less and less, patient is known to be noncompliant at times with his BiPAP. At any rate patient was seen in the ER, ABG showed relative hypoxia with a pO2 of 63 on 35% FiO2 84 pH of 7.24 patient had positive drug screen for oxycodone and benzodiazepines, patient was placed on BiPAP and I saw him in the ER, recommended that the patient goes on his usual treatment with bronchodilators, BiPAP, and diuretics. Patient himself is not a great historian and he was not a great historian today when I saw him in the ER as he was hypercapnic on BiPAP, lethargic but arousable and did not follow much instructions labs showed normal CBC, abnormal ABG as noted earlier, Bicarb of 39 BUN 55 creatinine 1.81 elevated BNP level, and chest x-ray showing evidence of pulmonary edema Patient was seen today on 06/06/2024, feeling a bit better today, breathing easier, patient is on bronchodilators and is also on BiPAP intermittently, now on 3 L nasal cannula does not seem to be in any distress, remains on diuretics for his congestive heart failure. Improving and he is almost back to baseline. WBC is 4.2 hemoglobin 13.1 electrolytes are normal bicarb is 38 BUN is 49 creatinine 1.58 Seen today on 06/07/2024, patient is doing well today, less shortness of breath less cough, no wheezing, no chest pain, no fever, no chills, no hemoptysis presently on 3 L nasal cannula, and his O2 saturation is 100% hemodynamically stable blood pressure is 116/73. WBC count is 7.5 hemoglobin is 15.2 basic metabolic profile is normal bicarb is 36 BUN 50 creatinine 1.55, steadily improving compared to creatinine of 1.81 on admission Progress note dated June 08, 2024. The patient is seen in room 350. He continues on oxygen at 4 L. No IV fluids. The use of BiPAP, last night, only for short period of time, because apparently caused a nosebleed. His BiPAP settings were seen over 6, 35%. He is sitting on the side of the bed. In no distress. Current labs include sodium 136, potassium 4.7, chlorides 90, CO2 34, BUN 57, and creatinine 1.92. Glucose is 243. Calcium is 8.5. Objective - Vital Signs Vital signs: Vital Signs Temp 98.5 F 06/08/24 12:00 Pulse 91 06/08/24 12:00 Resp 17 06/08/24 12:00 BP 118/72 06/08/24 12:00 Pulse Ox 94 L 06/08/24 12:00 FiO2 35 06/08/24 08:48 Intake & Output 06/07/24 06/08/24 06/08/24 18:59 06:59 18:59 Intake Total 358 608 Output Total 350 350 Balance 8 -350 608 Weight 153 kg 153 kg Intake: IV 10 Invasive Line 2 10 Oral 358 598 Output: Urine 350 350 Other: Voiding Method Urinal Urinal Urinal Diaper Diaper Diaper # Voids 1 1 - Exam No acute distress, oriented 3. Currently on 4 L of oxygen. HEENT examination is grossly unremarkable. Mucous membranes are moist. No oral lesions. Neck supple. Full range of motion. No adenopathy thyromegaly or neck vein distention. Cardiovascular examination reveals an irregular rhythm and rate. S1-S2 normal. No S3 or S4. No discernible murmur noted. Heart sounds are distant. Lungs reveal mostly clear breath sounds. Breath sounds are diminished. No wheezes. No rhonchi. No distinct crackles noted. Abdomen, but obese. Bowel sounds are noted. Extremities reveal 2+ edema, and chronic venous stasis changes. No clubbing or cyanosis. Skin is without rash or lesion. Neurologic examination is brief but nonfocal. - Labs CBC & Chem 7: 06/07/24 09:07 06/08/24 06:16 Labs: Abnormal Lab Results - Last 24 Hours (Table) 06/07/24 06/07/24 06/08/24 Range/Units 16:42 20:13 06:16 Sodium 136 L (137-145) mmol/L Chloride 90 L (98-107) mmol/L Carbon Dioxide 34 H (22-30) mmol/L BUN 57 H (9-20) mg/dL Creatinine 1.92 H (0.66-1.25) mg/dL Glucose 242 H (74-99) mg/dL POC Glucose (mg/dL) 248 H 250 H (70-110) mg/dL 06/08/24 06/08/24 Range/Units 06:29 11:27 Sodium (137-145) mmol/L Chloride (98-107) mmol/L Carbon Dioxide (22-30) mmol/L BUN (9-20) mg/dL Creatinine (0.66-1.25) mg/dL Glucose (74-99) mg/dL POC Glucose (mg/dL) 274 H 243 H (70-110) mg/dL Assessment and Plan Assessment: Acute on chronic hypoxemic and hypercapnic respiratory failure, secondary to chronic diastolic CHF exacerbation, as well as COPD exacerbation. Small bilateral pleural effusions. Intolerant of BiPAP. Severe COPD, stage IV, with an FEV1 that is 22% of predicted. Obstructive sleep apnea syndrome, noncompliant with noninvasive positive pressure ventilation. Morbid obesity with a BMI of 48.7 kg/m. Stage IIIa chronic kidney disease. Atrial fibrillation. Chronic lower extremity edema. History of hypertension. History of hyperlipidemia. Former tobacco dependence. Severe cellulitis of the right lower extremity. Plan: Plan dated June 08, 2024. The patient could not tolerate the BiPAP yesterday. He states that it caused him to have a nosebleed. Currently, labs, x-rays, and all medications are reviewed. We will continue to follow the patient, make recommendations along the way. He is currently on 4 L of nasal cannula. The patient will continue on diuretics, amiodarone, and Eliquis. The patient also continues on corticoste roids, bronchodilators. Labs, x-rays, and all medications are reviewed. Prognosis is guarded. Time with Patient: Less than 30
[2024-06-08 16:09] LABS: Glucose,Whole Blood 291 mg/dL (70-110)
--- NOTE | 2024-06-08 18:42 | P.PN ---
Subjective Patient is sitting at the edge of the bed. Mildly short of breath at rest Denies any chest discomfort Trophic changes in the lower extremities. Legs are wrapped Heart sounds are irregular heart rate mildly elevated Chronic diastolic heart failure, acute exacerbation reassessment of LV function pending Patient is back in A-fib despite electrical cardioversion and oral amiodarone Trophic changes in the lower extremities Morbid obesity Longstanding history of smoking COPD, advanced Longstanding history of smoking Suggest Patient is back in A-fib. Control strategy in this case is futile. Stop amiodarone completely. He already has advanced lung disease Reduce Lasix to 40 mg IV every 12 Increase dose of atorvastatin to 20 mg p.o. daily for cardiovascular risk reduction Ultimately I would increase the dose of metoprolol succinate to 200 mg in the morning while keeping it at 150 in the evening for rate control Overall long-term prognosis is poor Maintaining blood pressure, diuretics for diastolic heart failure and adequate doses, maintaining electrolytes and avoiding further lung problems including treating with amiodarone and accepting the permanency of atrial fibrillation is my medical recommendation. I had recommended this a few years back when he was in the ICU with severe pneumonitis and medical recommendation holds true even today Objective - Vital Signs Vital signs: Vital Signs Temp 98.4 F 06/08/24 03:23 Pulse 84 06/08/24 03:23 Resp 20 06/08/24 03:23 BP 138/81 06/08/24 03:23 Pulse Ox 93 L 06/08/24 03:23 FiO2 35 06/08/24 04:59 Intake & Output 06/07/24 06/08/24 06/08/24 18:59 06:59 18:59 Intake Total 358 Output Total 350 350 Balance 8 -350 Weight 153 kg Intake: Oral 358 Output: Urine 350 350 Other: Voiding Method Urinal Urinal Diaper Diaper # Voids 1 1 - Labs CBC & Chem 7: 06/07/24 09:07 06/08/24 06:16 Labs: Abnormal Lab Results - Last 24 Hours (Table) 06/07/24 06/07/24 06/07/24 Range/Units 09:07 09:07 11:40 RDW 18.4 H (11.5-15.5) % Lymphocytes # 0.4 L (1.0-4.8) k/uL Sodium 134 L (137-145) mmol/L Chloride 93 L (98-107) mmol/L Carbon Dioxide 36 H (22-30) mmol/L BUN 50 H (9-20) mg/dL Creatinine 1.55 H (0.66-1.25) mg/dL Glucose 150 H (74-99) mg/dL POC Glucose (mg/dL) 295 H (70-110) mg/dL Calcium 8.1 L (8.4-10.2) mg/dL 06/07/24 06/07/24 06/08/24 Range/Units 16:42 20:13 06:29 RDW (11.5-15.5) % Lymphocytes # (1.0-4.8) k/uL Sodium (137-145) mmol/L Chloride (98-107) mmol/L Carbon Dioxide (22-30) mmol/L BUN (9-20) mg/dL Creatinine (0.66-1.25) mg/dL Glucose (74-99) mg/dL POC Glucose (mg/dL) 248 H 250 H 274 H (70-110) mg/dL Calcium (8.4-10.2) mg/dL
[2024-06-08 20:26] LABS: Glucose,Whole Blood 297 mg/dL (70-110)
[2024-06-08] MEDS: ATORVASTATIN 20 MG TAB PO SCH (20:34)
[2024-06-09 05:56] LABS: Glucose,Whole Blood 364 mg/dL (70-110)
[2024-06-09] MEDS: METOPROLOL TARTRATE 50 MG TAB PO STA (08:54)
--- NOTE | 2024-06-09 11:22 | P.PN ---
Subjective HISTORY OF PRESENT ILLNESS: This is 59-year-old male patient of Dr. Dickerson with past medical history of chronic diastolic heart failure, diabetes mellitus type 2, chronic kidney disease stage III, hypertension, hyperlipidemia, persistent atrial fibrillation with recent cardioversion 04/08/2024, end-stage COPD, obstructive sleep apnea, morbid obesity. We have been asked to evaluate the patient for pulmonary edema. Patient states that at the [facility] he was very short of breath but he did not really feel it. He thinks it may have affected his mental status. Patient had a drop in his pulse ox. He also has lower extremity edema. No fever or chills. He has been started on Lasix 40 mg every 8 hours and he feels that his breathing is somewhat improved this morning. Blood pressure 122/71, heart rate 88, pulse ox 93% on 4 L. -EKG: Atrial fibrillation at 66 bpm -Chest x-ray: Prominent pulmonary vascular markings correlate for atelectasis or pneumonia. Atypical pulmonary edema may be considered. Consider developing heart failure. -Laboratory studies: Hemoglobin 13.1, WBC 4.2, platelet count 144. Sodium 137, potassium 4.3, initial BUN 55 and creatinine 1.81 with repeat of BUN 49 creatinine 1.58. Troponin negative x 1. proBNP 9140. Urine drug screen positive for oxycodone and benzodiazepines. Influenza A, influenza B, RSV, COVID-19 not detected. -Home cardiac medications: Diamox 250 mg twice daily, amiodarone 200 mg daily, Eliquis 5 mg twice daily, atorvastatin 10 mg at bedtime, Farxiga 10 mg daily, finasteride 5 mg daily, Lopressor 150 mg twice daily, Aldactone 25 mg daily, Demadex 10 mg daily. -JESS and cardioversion 04/08/2024 -Echocardiogram performed 12/13/2023: EF 60 to 65%, moderate concentric LVH, severe LA dilatation. -Lexiscan stress test performed 07/20/2022 revealed no evidence of reversible ischemia. -Radiofrequency ablation for typical atrial flutter 07/27/2021 06/07/2024 Patient seen and examined. Blood pressure 154/75, heart rate 96, pulse ox 95% on 4 L nasal cannula. Patient has been maintained on IV Lasix 40 mg every 8 hours. Lungs are clear but he continues to have lower extremity edema. 06/09/2024 Patient examined this morning at the bedside. Patient currently denies chest pain or pressure. He reports his breathing feels stable. Telemetry reveals atrial fibrillation with heart rate in the 90s. Blood pressure stable. Echocardiogram completed revealing ejection fraction 60 to 65% with trace TR and probable small pericardial effusion PHYSICAL EXAM: VITAL SIGNS: Reviewed. GENERAL: Well-developed in no acute distress. NECK: Supple. No JVD or thyromegaly LUNGS: Respirations even and unlabored. Lungs essentially clear to auscultation bilaterally. HEART: Irregular rate and rhythm. S1 and S2 heard. EXTREMITIES: Normal range of motion. No clubbing or cyanosis. Peripheral pulses intact. Bilateral lower extremity edema noted ASSESSMENT: Acute on chronic heart failure with preserved EF Persistent atrial fibrillation History of cardioversion, 04/08/2024 Diabetes mellitus type 2 Chronic kidney disease stage III Hypertension Hyperlipidemia End-stage COPD Obstructive sleep apnea Morbid obesity with BMI of 44 PLAN: Amiodarone discontinued. Do not resume upon discharge Increase metoprolol to 200 mg in the morning and 150 mg in the evening Continue IV Lasix 40 mg every 12 hours Daily weights, accurate intake and output, and monitoring of kidney function Continue additional cardiac medications Continue telemetry monitoring Further recommendations pending patient course Nurse practitioner note has been reviewed by physician. Signing provider agrees with the documented findings, assessment, and plan of care documented by CERTIFIED HAND THERAPIST as a scribe. Objective - Vital Signs Vital signs: Vital Signs Temp 97.4 F L 06/09/24 11:09 Pulse 81 06/09/24 11:09 Resp 19 06/09/24 11:09 BP 121/78 06/09/24 11:09 Pulse Ox 92 L 06/09/24 11:09 FiO2 35 06/09/24 04:06 Intake & Output 06/08/24 06/09/24 06/09/24 18:59 06:59 18:59 Intake Total 608 500 128 Balance 608 500 128 Weight 153 kg 153.2 kg Intake: IV 10 20 10 Invasive Line 2 10 20 10 Oral [id number] Other: Voiding Method Urinal Urinal Urinal Diaper Diaper Diaper - Labs CBC & Chem 7: 06/07/24 09:07 06/08/24 06:16 Labs: Abnormal Lab Results - Last 24 Hours (Table) 06/08/24 06/08/24 06/08/24 Range/Units 11:27 16:07 20:24 POC Glucose (mg/dL) 243 H 291 H 297 H (70-110) mg/dL 06/09/24 Range/Units 05:55 POC Glucose (mg/dL) 364 H (70-110) mg/dL
[2024-06-09 11:29] LABS: Glucose,Whole Blood 210 mg/dL (70-110)
--- NOTE | 2024-06-09 11:54 | P.PN ---
Subjective Progress Note Date: 06/09/24 Principal diagnosis: Respiratory failure. This is a 59-year-old white male familiar to my service, known history of multiple medical problems including severe end-stage COPD, obstructive sleep apnea syndrome, BiPAP dependent almost, history of chronic hypoxic and chronic hypercapnic respiratory failure, patient is frequently in the hospital with similar presentation each time. This time he was seen in the ER with worsening shortness of breath, and he noted that his O2 saturation has been getting less and less, patient is known to be noncompliant at times with his BiPAP. At any rate patient was seen in the ER, ABG showed relative hypoxia with a pO2 of 63 on 35% FiO2 84 pH of 7.24 patient had positive drug screen for oxycodone and benzodiazepines, patient was placed on BiPAP and I saw him in the ER, recommended that the patient goes on his usual treatment with bronchodilators, BiPAP, and diuretics. Patient himself is not a great historian and he was not a great historian today when I saw him in the ER as he was hypercapnic on BiPAP, lethargic but arousable and did not follow much instructions labs showed normal CBC, abnormal ABG as noted earlier, Bicarb of 39 BUN 55 creatinine 1.81 elevated BNP level, and chest x-ray showing evidence of pulmonary edema Patient was seen today on 06/06/2024, feeling a bit better today, breathing easier, patient is on bronchodilators and is also on BiPAP intermittently, now on 3 L nasal cannula does not seem to be in any distress, remains on diuretics for his congestive heart failure. Improving and he is almost back to baseline. WBC is 4.2 hemoglobin 13.1 electrolytes are normal bicarb is 38 BUN is 49 creatinine 1.58 Seen today on 06/07/2024, patient is doing well today, less shortness of breath less cough, no wheezing, no chest pain, no fever, no chills, no hemoptysis presently on 3 L nasal cannula, and his O2 saturation is 100% hemodynamically stable blood pressure is 116/73. WBC count is 7.5 hemoglobin is 15.2 basic metabolic profile is normal bicarb is 36 BUN 50 creatinine 1.55, steadily improving compared to creatinine of 1.81 on admission Progress note dated June 08, 2024. The patient is seen in room 350. He continues on oxygen at 4 L. No IV fluids. The use of BiPAP, last night, only for short period of time, because apparently caused a nosebleed. His BiPAP settings were seen over 6, 35%. He is sitting on the side of the bed. In no distress. Current labs include sodium 136, potassium 4.7, chlorides 90, CO2 34, BUN 57, and creatinine 1.92. Glucose is 243. Calcium is 8.5. Progress note dated June 09, 2024. 59-year-old male seen today in room 350. The patient remains on nasal O2 at 3 L. He did use a BiPAP for 5 hours last night, with settings of 16/6, 35%. He is not receiving any IV fluids. He is feeling about the same. No new labs today other than a glucose of 210. Objective - Vital Signs Vital signs: Vital Signs Temp 97.4 F L 06/09/24 11:09 Pulse 81 06/09/24 11:09 Resp 19 06/09/24 11:09 BP 121/78 06/09/24 11:09 Pulse Ox 92 L 06/09/24 11:09 FiO2 35 06/09/24 04:06 Intake & Output 06/08/24 06/09/24 06/09/24 18:59 06:59 18:59 Intake Total 608 500 128 Balance 608 500 128 Weight 153 kg 153.2 kg Intake: IV 10 20 10 Invasive Line 2 10 20 10 Oral [id number] Other: Voiding Method Urinal Urinal Urinal Diaper Diaper Diaper - Exam No acute distress, oriented 3. Currently on 3 L of oxygen. HEENT examination is grossly unremarkable. Mucous membranes are moist. No oral lesions. Neck supple. Full range of motion. No adenopathy thyromegaly or neck vein distention. Cardiovascular examination reveals an irregular rhythm and rate. S1-S2 normal. No S3 or S4. No discernible murmur noted. Heart sounds are distant. Lungs reveal mostly clear breath sounds. Breath sounds are diminished. No wheezes. No rhonchi. No distinct crackles noted. Abdomen, but obese. Bowel sounds are noted. Extremities reveal 2+ edema, and chronic venous stasis changes. No clubbing or cyanosis. Both legs are wrapped. Skin is without rash or lesion. Neurologic examination is brief but nonfocal. - Labs CBC & Chem 7: 06/07/24 09:07 06/08/24 06:16 Labs: Abnormal Lab Results - Last 24 Hours (Table) 06/08/24 06/08/24 06/09/24 Range/Units 16:07 20:24 05:55 POC Glucose (mg/dL) 291 H 297 H 364 H (70-110) mg/dL 06/09/24 Range/Units 11:27 POC Glucose (mg/dL) 210 H (70-110) mg/dL Assessment and Plan Assessment: Acute on chronic hypoxemic and hypercapnic respiratory failure, secondary to chronic diastolic CHF exacerbation, as well as COPD exacerbation. Small bilateral pleural effusions. Intolerant of BiPAP. Severe COPD, stage IV, with an FEV1 that is 22% of predicted. Obstructive sleep apnea syndrome, noncompliant with noninvasive positive pressure ventilation. Morbid obesity with a BMI of 48.7 kg/m. Stage IIIa chronic kidney disease. Atrial fibrillation. Chronic lower extremity edema. History of hypertension. History of hyperlipidemia. Former tobacco dependence. Severe cellulitis of the right lower extremity. Plan: Plan dated June 08, 2024. The patient could not tolerate the BiPAP yesterday. He states that it caused him to have a nosebleed. Currently, labs, x-rays, and all medications are reviewed. We will continue to follow the patient, make recommendations along t he way. He is currently on 4 L of nasal cannula. The patient will continue on diuretics, amiodarone, and Eliquis. The patient also continues on corticosteroids, bronchodilators. Labs, x-rays, and all medications are reviewed. Prognosis is guarded. Plan dated June 09, 2024. The patient appears to be pretty much at baseline. He is on 3 L. Saturations are in the low to mid 90s. He is not receiving any IV fluids. The patient did use BiPAP last night, with settings of 16/6, 35%. The night before he did not use it, because he developed epistaxis. Labs, x-rays, medications are reviewed. We will continue to follow the patient, make recommendations along the way. Prognosis is guarded. Time with Patient: Less than 30
[2024-06-09 16:43] LABS: Glucose,Whole Blood 333 mg/dL (70-110)
--- NOTE | 2024-06-09 18:59 | CDI ---
Documentation Clarification Form Date: 06/09/2024 06:55:08 PM From: Joan Schmidt RN, CCDS Phone: [phone] Admit Date: 06/04/2024 06:48:00 PM Patient Name: Meir Abraham Visit Number: [id number] Discharge Date: ATTENTION: The Clinical Documentation Specialists (CDI) and [facility] Coding Staff appreciate your assistance in clarifying documentation. Please respond to the clarification below the line at the bottom and electronically sign. The CDI & [facility] Coding staff will review the response and follow-up if needed. Please note: Queries are made part of the Legal Health Record. If you have any questions, please contact the author of this message via ITS. Doctor/Provider: Nikhil E Sheet Your patient 06/04/24 has documentation on CXR, CT findings of atypical pulmonary edema, Consider developing congestive heart failure. Based on this information and the findings below, is there an additional diagnosis that is clinically appropriate for this patient? Patient history/risk factors: Atrial Fibrillation, Asthma, Chronic Diastolic Heart Failure, COPD, Hyperlipidemia, Hypertension, Sleep Apnea/CPAP/BIPAP Clinical Indicators: 59-year-old male who comes from the [facility] with lethargic and low pulse ox. Patient normally is on 2/L home O2 06/04 VS 104/62 75 22 98 95% 3/L NC, 103/58 64 20 93% BiBAP BNP: 9140 Cardiac ECHO: LVEF 60-65% with trace tricuspid regurgitation. Probable small pericardial effusion 06/06 Cardiology consult and subsequent progress notes: Acute on chronic heart failure with preserved EF Treatment: Cardiac Monitoring, Telemetry Lasix 40 MG PO Q8 HRS (dose per cardiology) Lipitor 20MG PO HS Lopressor 150MG PO HS Aldactone 25 MG PO Daily Monitor I/O, Daily weight electrolytes and renal function Is there an additional diagnosis that is clinically appropriate for this patient? [ x ] Acute Pulmonary Edema related to acute on chronic heart failure, preserved EF [ ] Acute Pulmonary Edema [ ] Unable to determine [ ] Other, please specify (Template Last Revised: September 2022) MTDD
[2024-06-09 20:16] LABS: Glucose,Whole Blood 204 mg/dL (70-110)
--- NOTE | 2024-06-09 21:25 | P.PN ---
Subjective 59-year-old male, history of hypertension, hyperlipidemia, atrial fibrillation, asthma/COPD, sleep apnea, [facility] was more [facility]argic and [facility]. Patient normally is on 2 L of oxygen at home. Patient himself wakes up and has no complaints however he is quick to go back to sleep. Patient has had no history of fever or chills patient denied any chest pain or palpitation. Patient has any abdominal pain patient has nausea vomiting diarrhea Blood work reveals WBC of 5.3, hemoglobin of 13.6 and platelet count of 144, sodium 138, potassium 4.6, BUNs/creatinine of 55/1.8 and blood glucose of 155, magnesium elevated at 2.5, lactic acid level of 1.5, troponin 0.023, ABG reveals pH of 7.24, pCO2 of 84, pO2 of 63; patient is admitted for further treatment for pulmonary edema hypercapnia Chest x-ray completed in ED reveals pulmonary edema 24-hour interval change 06/07/2024, -Patient is seen and evaluated in room at bedside; patient is doing well today, less shortness of breath less cough, no wheezing, no chest pain, no fever, no chills, no hemoptysis --presently on 3 L nasal cannula, and his O2 saturation is 100% hemodynamically stable blood pressure is 116/73. Review shows WBC count is 7.5 hemoglobin is 15.2 basic metabolic profile is normal bicarb is 36 BUN 50 creatinine 1.55, steadily improving compared to creatinine of 1.81 on admission Continue bronchodilators and methylprednisolone 40 mg IV every 8 hours Continue diuretics, Lasix 40 mg IV push every 8 hours, continue Diamox to 50 mg p.o. twice daily Continue amiodarone and Eliquis 06/08 Patient is awake alert, sitting at the bedside, looks tired. Patient has been using BiPAP machine all night but he could not sleep well because of frequent epistaxis happened last night. Currently epistaxis is stopp ed. No other bleeding from anywhere else. No headache dizziness or new weakness numbness. No chest pain. He still complaining from dyspnea but improving, leg swelling is better. No other GI/ symptom He is currently on 4 L oxygen via nasal cannula, at home he was using 2 L. I discussed the risk and benefits of anticoagulation including Eliquis and he agrees. Eliquis was resumed and we will going to monitor for bleeding. He is currently on Protonix 40 mg p.o. daily 06/09 Patient still with breathing difficulty. He is not in respiratory distress while at rest but he has still has limited air entry in both sides. He is using BiPAP overnight IV Lasix lowered to twice daily. Creatinine was 1.9. Check creatinine tomorrow Metoprolol dose increased 150 twice daily and to 200 mg in the morning and 200 mg in the evening Patient also remains on IV Solu-Medrol 40 mg Echocardiogram done yesterday showing ejection fraction of 60 to 65%, it was suboptimal study Objective - Vital Signs Vital signs: Vital Signs Temp 98.4 F 06/09/24 19:46 Pulse 80 06/09/24 19:46 Resp 18 06/09/24 19:46 BP 152/78 06/09/24 19:46 Pulse Ox 95 06/09/24 19:46 FiO2 35 06/09/24 04:06 Intake & Output 06/09/24 06/09/24 06/10/24 06:59 18:59 06:59 Intake Total 500 976 10 Balance 500 976 10 Weight 153.2 kg Intake: IV 20 20 10 Invasive Line 2 20 20 10 Oral [id number] Other: Voiding Method Urinal Urinal Urinal Diaper Diaper Diaper - Exam -GENERAL: The patient is alert and oriented x3, not in any acute distress. Well developed, well nourished. Obese. Looks tired HEENT: Pupils are round and equally reacting to light. EOMI. No scleral icterus. No conjunctival pallor. Normocephalic, atraumatic. No pharyngeal erythema. No thyromegaly. CARDIOVASCULAR: S1 and S2 present. No murmurs, rubs, or gallops. -PULMONARY: Chest is clear to auscultation, no wheezing , no crackles. Decreased air entry on both sides ABDOMEN: Soft, nontender, nondistended, normoactive bowel sounds. No palpable organomegaly. MUSCULOSKELETAL: No joint swelling or deformity. EXTREMITIES: No cyanosis, clubbing, or pedal edema. NEUROLOGICAL: Gross neurological examination did not reveal any focal deficits. SKIN: No rashes. no petechiae. - Labs CBC & Chem 7: 06/07/24 09:07 06/08/24 06:16 Labs: Abnormal Lab Results - Last 24 Hours (Table) 06/09/24 06/09/24 06/09/24 Range/Units 05:55 11:27 16:40 POC Glucose (mg/dL) 364 H 210 H 333 H (70-110) mg/dL 06/09/24 Range/Units 20:15 POC Glucose (mg/dL) 204 H (70-110) mg/dL Assessment and Plan Assessment: 1. Pulmonary edema, secondary to acute diastolic CHF with preserved ejection fraction 2. Hypercapnia; patient has history of COPD/asthma; mild exacerbation 3. Atrial fibrillation; controlled ventricular response 4. Hyperglycemia; uncontrolled diabetes mellitus with long-term insulin use -- Lantus 15 units SQ twice daily; NovoLog 5 units SQ AC -Will monitor Accu-Cheks before every meal and at bedtime with insulin sliding scale 5. Hypertension; metoprolol 150 mg daily 6. Hyperlipidemia; 7. BPH Plan: Continue with IV Lasix, lowered to twice per day. Amiodarone was discontinued by carbon coater machine operator Continued on metoprolol 150 milligram p.m. and 200 mg a.m. Continue with insulin Monitor creatinine Resumed Eliquis with risk and benefits explained for him and he is agreeable. Patient still at risk of bleeding and will be monitored closely Cardiology and pulmonary consult Labs and medication were reviewed.. Continue same treatment. Continue with symptomatic treatment. Resume home medication. Monitor labs and vitals. DVT and GI prophylaxis. Further recommendations as per clinical course of the patient DVT prophylaxis: Eliquis GI Prophylaxis: Protonix PT/OT: Pending Prognosis is guarded
[2024-06-09] MEDS: METOPROLOL TARTRATE 50 MG TAB PO SCH (22:26)
[2024-06-10 05:54] LABS: Glucose,Whole Blood 266 mg/dL (70-110)
[2024-06-10 08:10] LABS: African American GFR (CKD) 45 (>60 ml/min/1.73 sqM); Anion Gap 2 mmol/L; Blood Urea Nitrogen 67 mg/dL (9-20); Calcium 8.5 mg/dL (8.4-10.2); Carbon Dioxide 39 mmol/L (22-30); Chloride 95 mmol/L (98-107); Glucose 248 mg/dL (74-99); Non-African American GFR(CKD) 39 (>60 ml/min/1.73 sqM); Potassium 4.6 mmol/L (3.5-5.1); Sodium 136 mmol/L (137-145)
[2024-06-10] MEDS: METOPROLOL TARTRATE 50 MG TAB PO SCH (09:04)
--- NOTE | 2024-06-10 10:47 | P.CONS ---
History of Present Illness - Reason for Consult Consult date: 06/10/24 wound care - History of Present Illness This is a 59-year-old patient being seen on 3 S. for nonhealing ulceration to the right anterior lower extremity, Right calcaneus, right foot second digit, And a left second digit.Patient was seen a few weeks ago at that time he had a surgical debridement done by Dr. Matta. Patient was then transferred to an extended care facility for rehab. Patient states that there has not been any wound Dressing changes while he was in rehab. Patient does not follow-up with a wound care center. Patient is very upset that his wounds are still open he states that they have been this way for the last 3 months however they supposed to close when nobody is doing anything and he will end up with an infection because we are not properly treating them. Discussed with patient the importance of compliance and utilizing the appropriate dressings. Discussed with patient's that wound care takes many months for healing to be achieved. Patient verbalized understanding. Patient has a ulceration to the Second digit of the right foot. Measuring 0.4 x 0.4 x 0.1 cm granulation slough and nonviable tissue present. Right calcaneus ulceration measures approximately 0.4 x 0.2 x 0.1 with fat layer exposed slough and nonviable tissue present. Right anterior lower extremity ulceration measures 1 x 1.2 x 0.2 cm with slough and nonviable tissue present minimal granulation seen wound edges are attached to the wound base no tunneling or undermining noted. Left foot second digit ulceration richard ures approximately 0.3 x 0.2 x 0.1 cm with slough and nonviable tissue present.He has been utilizing absorptive silver to the site however it is not routinely changed. Review Of Systems: Constitutional: No fever, no chills, no night sweats. No weight change. No weakness, fatigue or lethargy. No daytime sleepiness. Integumentary:reports wounds, no lesions. No rash or pruritus. No unusual bru ising. No change in hair or nails. Physical exam: General Appearance: Alert, cooperative, no distress, appears stated age. Skin: See HPI all other Skin color, texture, tugor normal, no rashes or lesions. Neurologic: Alert oriented x3 Assessment: 1. Nonhealing ulceration with fat layer exposure right lower extremity 2. Nonhealing ulceration with fat layer exposure other part of right foot 3. Stage II pressure ulcer right calcaneus 4. Nonhealing ulceration with fat layer exposure other foot site Plan: 1.Right anterior lower extremity and right foot second digit apply absorptive silver, saline moist gauze, dry gauze, rolled gauze and secure with paper tape. Wrap with Gonzalez wrap for compression. Apply honey gel to the right heel right second toe and left second toe dry gauze and secure with tape.Patient would benefit from wound care and advanced wound care setting however he is declining at this time. Thank you for the consultation any questions please contact the wound care center. DNP note has been reviewed and discussed with Dr. Hyde and the impression and plan of care has been directed as dictated. 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 History of Any Multi-Drug Resistant Organisms: MRSA, Other MDRO Year Discovered:: 05/07/24-Other MDRO; 04/14/24-MRSA MDRO Source:: Other MDRO- rt leg; MRSA-rt foot, left leg Past Surgical History: Hernia Repair, Joint Replacement, Orthopedic Surgery Additional Past Surgical History / Comment(s): RT ARMAND, rt foot SX, Past Anesthesia/Blood Transfusion Reactions: No Reported Reaction Smoking Status: Former smoker - Past Family History Mother Family Medical History: No Reported History Medications and Allergies Home Medications Medication Instructions Recorded Confirmed Type hydrOXYzine pamoate [Vistaril] 50 mg PO HS PRN 07/09/22 06/04/24 History Atorvastatin [Lipitor] 10 mg PO HS 08/01/22 06/04/24 History Dapagliflozin Propanediol [Farxiga] 10 mg PO DAILY 30 Days #30 tab 09/10/22 06/04/24 Rx busPIRone HCl [Buspar] 5 mg PO TID 30 Days #90 tab 09/10/22 06/04/24 Rx Apixaban [Eliquis] 5 mg PO BID 12/12/23 06/04/24 History Finasteride [Proscar] 5 mg PO DAILY 12/12/23 06/04/24 History Sertraline [Zoloft] 50 mg PO DAILY 12/12/23 06/04/24 History Calcium Carbonate [Tums] 1,000 mg PO QID PRN tab 04/22/24 06/04/24 Rx Insulin Detemir (Levemir) [Levemir] 15 unit SQ BID@0700,2100 each 04/22/24 06/04/24 Rx Ipratropium-Albuterol Nebulize 3 ml INHALATION RT-Q2H PRN each 04/22/24 06/04/24 Rx [Duoneb 0.5 mg-3 mg/3 ml Soln] Ipratropium-Albuterol Nebulize 3 ml INHALATION RT-QID each 04/22/24 06/04/24 Rx [Duoneb 0.5 mg-3 mg/3 ml Soln] Metoprolol Tartrate [Lopressor] 150 mg PO BID tab 04/22/24 06/04/24 Rx diphenhydrAMINE [Benadryl] 25 mg PO BID PRN cap 04/22/24 06/04/24 Rx Naloxone HCl [Narcan] 4 mg NASAL DIRECTED PRN 05/01/24 06/04/24 History Prochlorperazine [Compazine] 10 mg PO Q8H PRN 05/01/24 06/04/24 History Tamsulosin [Flomax] 0.4 mg PO HS 05/01/24 06/04/24 History Torsemide [Demadex] 10 mg PO DAILY 05/01/24 06/04/24 History ALPRAZolam [Xanax] 0.25 mg PO TID #6 tab 05/15/24 06/04/24 Rx INSULIN ASPART (NovoLOG) [NovoLOG 5 unit SQ AC-TID each 05/15/24 06/04/24 Rx (formulary)] Budesonide-Formot 160-4.5 Mcg 2 puff INHALATION RT-BID each 05/18/24 06/04/24 Rx [Symbicort 160-4.5 Mcg Inhaler] Terbinafine [LamISIL] 250 mg PO DAILY tab 05/18/24 06/04/24 Rx acetaZOLAMIDE [Diamox] 250 mg PO BID tab 05/18/24 06/04/24 Rx Acetaminophen [Tylenol 8 Hour] 650 mg PO Q6H PRN 06/04/24 06/04/24 History Amiodarone [Cordarone] 200 mg PO DAILY 06/04/24 06/04/24 History Pantoprazole [Protonix] 40 mg PO DAILY 06/04/24 06/04/24 History Pregabalin [Lyrica] 50 mg PO BID 06/04/24 06/04/24 History Spironolactone [Aldactone] 25 mg PO DAILY 06/04/24 06/04/24 History oxyCODONE HCL/ACETAMINOPHEN 1 tab PO Q6HR PRN 06/04/24 06/04/24 History [Percocet 7.5-325 mg] predniSONE 10 mg PO DAILY 06/04/24 06/04/24 History Allergies Allergy/AdvReac Type Severity Reaction Status Date / Time No Known Allergies Allergy Verified 06/04/24 15:55 Physical Exam Vitals: Vital Signs Temp Pulse Pulse Resp BP Pulse Ox FiO2 06/10/24 10:00 88 20 95 35 06/10/24 09:09 98.1 F 83 16 113/72 94 L 06/10/24 03:32 97.4 F L 79 18 145/86 97 06/10/24 01:19 94 18 06/10/24 00:53 35 06/09/24 23:55 98.0 F 94 18 161/91 94 L 06/09/24 21:34 92 06/09/24 21:22 88 06/09/24 19:46 98.4 F 80 18 152/78 95 06/09/24 16:00 98.7 F 80 18 123/80 93 L 06/09/24 12:32 90 06/09/24 12:20 92 06/09/24 11:09 97.4 F L 81 19 121/78 92 L Intake and Output 06/09/24 06/10/24 06/10/24 22:59 06:59 14:59 Intake Total 730 368 Balance 730 368 Intake: IV 10 10 Invasive Line 2 10 10 Oral [id number] Other: Voiding Method Urinal Urinal Urinal Diaper Diaper Diaper Weight 152.2 kg Results CBC & Chem 7: 06/07/24 09:07 06/10/24 05:58 Labs: Abnormal Lab Results - Last 24 Hours (Table) 06/09/24 06/09/24 06/09/24 Range/Units 11:27 16:40 20:15 Sodium (137-145) mmol/L Chloride (98-107) mmol/L Carbon Dioxide (22-30) mmol/L BUN (9-20) mg/dL Creatinine (0.66-1.25) mg/dL Glucose (74-99) mg/dL POC Glucose (mg/dL) 210 H 333 H 204 H (70-110) mg/dL 06/10/24 06/10/24 Range/Units 05:51 05:58 Sodium 136 L (137-145) mmol/L Chloride 95 L (98-107) mmol/L Carbon Dioxide 39 H (22-30) mmol/L BUN 67 H (9-20) mg/dL Creatinine 1.83 H (0.66-1.25) mg/dL Glucose 248 H (74-99) mg/dL POC Glucose (mg/dL) 266 H (70-110) mg/dL Assessment and Plan (1) Non-pressure chronic ulcer of other part of right foot with fat layer exposed Current Visit: Yes Status: Acute Code(s): L97.512 - NON-PRS CHRONIC ULCER OTH PRT RIGHT FOOT W FAT LAYER EXPOSED SNOMED Code(s): 42404815651047180 (2) Chronic venous hypertension (idiopathic) with ulcer of right lower extremity Current Visit: Yes Status: Acute Code(s): I87.311 - CHRONIC VENOUS HYPERTENSION W ULCER OF R LOW EXTREM; L97.919 - NON-PRS CHRONIC ULC UNSP PRT OF R LOW LEG W UNSP SEVERITY SNOMED Code(s): 321841350506886 (3) Stage II pressure ulcer of right heel Current Visit: Yes Status: Acute Code(s): L89.612 - PRESSURE ULCER OF RIGHT HEEL, STAGE 2 SNOMED Code(s): 65230365428718 (4) Non-pressure chronic ulcer of other part of left foot with fat layer exposed Current Visit: Yes Status: Acute Code(s): L97.522 - NON-PRS CHRONIC ULCER OTH PRT LEFT FOOT W FAT LAYER EXPOSED SNOMED Code(s): 44659000742646609 (5) Non-pressure chronic ulcer of other part of right lower leg with fat layer exposed Current Visit: Yes Status: Acute Code(s): L97.812 - NON-PRS CHRONIC ULCER OTH PRT R LOW LEG W FAT LAYER EXPOSED SNOMED Code(s): 33981065588639364
[2024-06-10 11:25] LABS: Glucose,Whole Blood 319 mg/dL (70-110)
--- NOTE | 2024-06-10 11:27 | P.PN ---
Subjective HISTORY OF PRESENT ILLNESS: This is 59-year-old male patient of Dr. Dickerson with past medical history of chronic diastolic heart failure, diabetes mellitus type 2, chronic kidney disease stage III, hypertension, hyperlipidemia, persistent atrial fibrillation with recent cardioversion 04/08/2024, end-stage COPD, obstructive sleep apnea, morbid obesity. We have been asked to evaluate the patient for pulmonary edema. Patient states that [facility] he was very short of breath but he did not really feel it. He thinks it may have affected his mental status. Patient had a drop in his pulse ox. He also has lower extremity edema. No fever or chills. He has been started on Lasix 40 mg every 8 hours and he feels that his breathing is somewhat improved this morning. Blood pressure 122/71, heart rate 88, pulse ox 93% on 4 L. -EKG: Atrial fibrillation at 66 bpm -Chest x-ray: Prominent pulmonary vascular markings correlate for atelectasis or pneumonia. Atypical pulmonary edema may be considered. Consider developing heart failure. -Laboratory studies: Hemoglobin 13.1, WBC 4.2, platelet count 144. Sodium 137, potassium 4.3, initial BUN 55 and creatinine 1.81 with repeat of BUN 49 creatinine 1.58. Troponin negative x 1. proBNP 9140. Urine drug screen positive for oxycodone and benzodiazepines. Influenza A, influenza B, RSV, COVID-19 not detected. -Home cardiac medications: Diamox 250 mg twice daily, amiodarone 200 mg daily, Eliquis 5 mg twice daily, atorvastatin 10 mg at bedtime, Farxiga 10 mg daily, finasteride 5 mg daily, Lopressor 150 mg twice daily, Aldactone 25 mg daily, Demadex 10 mg daily. -JESS and cardioversion 04/08/2024 -Echocardiogram performed 12/13/2023: EF 60 to 65%, moderate concentric LVH, severe LA dilatation. -Lexiscan stress test performed 07/20/2022 revealed no evidence of reversible ischemia. -Radiofrequency ablation for typical atrial flutter 07/27/2021 06/07/2024 Patient seen and examined. Blood pressure 154/75, heart rate 96, pulse ox 95% on 4 L nasal cannula. Patient has been maintained on IV Lasix 40 mg every 8 hours. Lungs are clear but he continues to have lower extremity edema. 06/09/2024 Patient examined this morning at the bedside. Patient currently denies chest pain or pressure. He reports his breathing feels stable. Telemetry reveals atrial fibrillation with heart rate in the 90s. Blood pressure stable. Echocardiogram completed revealing ejection fraction 60 to 65% with trace TR and probable small pericardial effusion 06/10/2024 Patient examined this morning. He is sitting on the side of the bed. He denies chest pain or pressure. He currently denies shortness of breath. He remains on IV Lasix. PHYSICAL EXAM: VITAL SIGNS: Reviewed. GENERAL: Well-developed in no acute distress. NECK: Supple. No JVD or thyromegaly LUNGS: Respirations even and unlabored. Lungs essentially clear to auscultation bilaterally. HEART: Irregular rate and rhythm. S1 and S2 heard. EXTREMITIES: Normal range of motion. No clubbing or cyanosis. Peripheral pulses intact. Bilateral lower extremity edema noted ASSESSMENT: Acute on chronic heart failure with preserved EF Persistent atrial fibrillation History of cardioversion, 04/08/2024 Diabetes mellitus type 2 Chronic kidney disease stage III Hypertension Hyperlipidemia End-stage COPD Obstructive sleep apnea Morbid obesity with BMI of 44 PLAN: Amiodarone discontinued. Do not resume upon discharge Continue metoprolol to 200 mg in the morning and 150 mg in the evening Discontinue IV Lasix. Begin oral Lasix 40 mg twice a day Daily weights, accurate intake and output, and monitoring of kidney function If needed, may increase spironolactone to 50 mg daily Continue additional cardiac medications Continue telemetry monitoring Further recommendations pending patient course Nurse practitioner note has been reviewed by physician. Signing provider agrees with the documented findings, assessment, and plan of care documented by GROOVING MACHINE OPERATOR as a scribe. Objective - Vital Signs Vital signs: Vital Signs Temp 98.1 F 06/10/24 09:09 Pulse 88 06/10/24 10:15 Resp 20 06/10/24 10:15 BP 113/72 06/10/24 09:09 Pulse Ox 95 06/10/24 10:00 FiO2 35 06/10/24 10:00 Intake & Output 06/09/24 06/10/24 06/10/24 18:59 06:59 18:59 Intake Total 976 10 368 Balance 976 10 368 Weight 152.2 kg 152.2 kg Intake: IV 20 10 10 Invasive Line 2 20 10 10 Oral [id number] Other: Voiding Method Urinal Urinal Urinal Diaper Diaper Diaper - Labs CBC & Chem 7: 06/07/24 09:07 06/10/24 05:58 Labs: Abnormal Lab Results - Last 24 Hours (Table) 06/09/24 06/09/24 06/09/24 Range/Units 11:27 16:40 20:15 Sodium (137-145) mmol/L Chloride (98-107) mmol/L Carbon Dioxide (22-30) mmol/L BUN (9-20) mg/dL Creatinine (0.66-1.25) mg/dL Glucose (74-99) mg/dL POC Glucose (mg/dL) 210 H 333 H 204 H (70-110) mg/dL 06/10/24 06/10/24 Range/Units 05:51 05:58 Sodium 136 L (137-145) mmol/L Chloride 95 L (98-107) mmol/L Carbon Dioxide 39 H (22-30) mmol/L BUN 67 H (9-20) mg/dL Creatinine 1.83 H (0.66-1.25) mg/dL Glucose 248 H (74-99) mg/dL POC Glucose (mg/dL) 266 H (70-110) mg/dL
--- NOTE | 2024-06-10 14:18 | P.PN ---
Subjective Progress Note Date: 06/10/24 Principal diagnosis: Respiratory failure. This is a 59-year-old white male familiar to my service, known history of multiple medical problems including severe end-stage COPD, obstructive sleep apnea syndrome, BiPAP dependent almost, history of chronic hypoxic and chronic hypercapnic respiratory failure, patient is frequently in the hospital with similar presentation each time. This time he was seen in the ER with worsening shortness of breath, and he noted that his O2 saturation has been getting less and less, patient is known to be noncompliant at times with his BiPAP. At any rate patient was seen in the ER, ABG showed relative hypoxia with a pO2 of 63 on 35% FiO2 84 pH of 7.24 patient had positive drug screen for oxycodone and benzodiazepines, patient was placed on BiPAP and I saw him in the ER, recommended that the patient goes on his usual treatment with bronchodilators, BiPAP, and diuretics. Patient himself is not a great historian and he was not a great historian today when I saw him in the ER as he was hypercapnic on BiPAP, lethargic but arousable and did not follow much instructions labs showed normal CBC, abnormal ABG as noted earlier, Bicarb of 39 BUN 55 creatinine 1.81 elevated BNP level, and chest x-ray showing evidence of pulmonary edema Patient was seen today on 06/06/2024, feeling a bit better today, breathing easier, patient is on bronchodilators and is also on BiPAP intermittently, now on 3 L nasal cannula does not seem to be in any distress, remains on diuretics for his congestive heart failure. Improving and he is almost back to baseline. WBC is 4.2 hemoglobin 13.1 electrolytes are normal bicarb is 38 BUN is 49 creatinine 1.58 Seen today on 06/07/2024, patient is doing well today, less shortness of breath less cough, no wheezing, no chest pain, no fever, no chills, no hemoptysis presently on 3 L nasal cannula, and his O2 saturation is 100% hemodynamically stable blood pressure is 116/73. WBC count is 7.5 hemoglobin is 15.2 basic metabolic profile is normal bicarb is 36 BUN 50 creatinine 1.55, steadily improving compared to creatinine of 1.81 on admission Progress note dated June 08, 2024. The patient is seen in room 350. He continues on oxygen at 4 L. No IV fluids. The use of BiPAP, last night, only for short period of time, because apparently caused a nosebleed. His BiPAP settings were seen over 6, 35%. He is sitting on the side of the bed. In no distress. Current labs include sodium 136, potassium 4.7, chlorides 90, CO2 34, BUN 57, and creatinine 1.92. Glucose is 243. Calcium is 8.5. Progress note dated June 09, 2024. 59-year-old male seen today in room 350. The patient remains on nasal O2 at 3 L. He did use a BiPAP for 5 hours last night, with settings of 16/6, 35%. He is not receiving any IV fluids. He is feeling about the same. No new labs today other than a glucose of 210. Progress note dated June 10, 2024. 59-year-old male seen today in room 350. The patient is doing about the same. The nurses asked whether or not he could be discharged, and from our perspecti ve, he can be. He is on BiPAP at 16/6, 35% in the evening. During the daytime, he is on nasal O2, 2 L. He is not receiving any IV fluids. He has no new complaints today. Sodium 136, potassium 4.6, chlorides 95, CO2 39, BUN 67, creatinine 1.83. Glucose is 319. Objective - Vital Signs Vital signs: Vital Signs Temp 98.1 F 06/10/24 09:09 Pulse 88 06/10/24 13:50 Resp 18 06/10/24 13:50 BP 97/59 06/10/24 12:00 Pulse Ox 92 L 06/10/24 12:00 FiO2 35 06/10/24 10:00 Intake & Output 06/09/24 06/10/24 06/10/24 18:59 06:59 18:59 Intake Total 976 10 848 Balance 976 10 848 Weight 152.2 kg 152.2 kg Intake: IV 20 10 10 Invasive Line 2 20 10 10 Oral [id number] Other: Voiding Method Urinal Urinal Urinal Diaper Diaper Diaper - Exam No acute distress, oriented 3. Currently on 2 L of oxygen. HEENT examination is grossly unremarkable. Mucous membranes are moist. No oral lesions. Neck supple. Full range of motion. No adenopathy thyromegaly or neck vein distention. Cardiovascular examination reveals an irregular rhythm and rate. S1-S2 normal. No S3 or S4. No discernible murmur noted. Heart sounds are distant. Lungs reveal mostly clear breath sounds. Breath sounds are diminished. No wheezes. No rhonchi. No distinct crackles noted. Abdomen, but obese. Bowel sounds are noted. Extremities reveal 2+ edema, and chronic venous stasis changes. No clubbing or cyanosis. Both legs are wrapped. Skin is without rash or lesion. Neurologic examination is brief but nonfocal. - Labs CBC & Chem 7: 06/07/24 09:07 06/10/24 05:58 Labs: Abnormal Lab Results - Last 24 Hours (Table) 06/09/24 06/09/24 06/10/24 Range/Units 16:40 20:15 05:51 Sodium (137-145) mmol/L Chloride (98-107) mmol/L Carbon Dioxide (22-30) mmol/L BUN (9-20) mg/dL Creatinine (0.66-1.25) mg/dL Glucose (74-99) mg/dL POC Glucose (mg/dL) 333 H 204 H 266 H (70-110) mg/dL 06/10/24 06/10/24 Range/Units 05:58 11:24 Sodium 136 L (137-145) mmol/L Chloride 95 L (98-107) mmol/L Carbon Dioxide 39 H (22-30) mmol/L BUN 67 H (9-20) mg/dL Creatinine 1.83 H (0.66-1.25) mg/dL Glucose 248 H (74-99) mg/dL POC Glucose (mg/dL) 319 H (70-110) mg/dL Assessment and Plan Assessment: Acute on chronic hypoxemic and hypercapnic respiratory failure, secondary to chronic diastolic CHF exacerbation, as well as COPD exacerbation. Small bilateral pleural effusions. Intolerant of BiPAP. Severe COPD, stage IV, with an FEV1 that is 22% of predicted. Obstructive sleep apnea syndrome, noncompliant with noninvasive positive pressure ventilation. Morbid obesity with a BMI of 48.7 kg/m. Stage IIIa chronic kidney disease. Atrial fibrillation. Chronic lower extremity edema. History of hypertension. History of hyperlipidemia. Former tobacco dependence. Severe cellulitis of the right lower extremity. Plan: Plan dated June 08, 2024. The patient could not tolerate the BiPAP yesterday. He states that it caused him to have a nosebleed. Currently, labs, x-rays, and all medications are reviewed. We will continue to follow the patient, make recommendations along the way. He is currently on 4 L of nasal cannula. The patient will continue on diuretics, amiodarone, and Eliquis. The patient also continues on corticosteroids, bronchodilators. Labs, x-rays, and all medications are reviewed. Prognosis is guarded. Plan dated June 09, 2024. The patient appears to be pretty much at baseline. He is on 3 L. Saturations are in the low to mid 90s. He is not receiving any IV fluids. The patient did use BiPAP last night, with settings of 16/6, 35%. The night before he did not use it, because he developed epistaxis. Labs, x-rays, medications are reviewed. We will continue to follow the patient, make recommendations along the way. Prognosis is guarded. Plan dated June 10, 2024. The patient appears to be relatively stable. The patient's labs are reviewed. X-rays and medications are reviewed. The patient is down to 2 L nasal O2. He is not receiving any IV fluids. He did use BiPAP last night, although he cannot tell me how long he used it for. BiPAP settings are 16/6, 35%. Labs, x-rays, and all medications are reviewed. Prognosis is certainly guarded. The patient has had multiple admissions to this hospital in the recent future. Time with Patient: Less than 30
[2024-06-10] MEDS: FUROSEMIDE 40 MG TAB PO SCH (16:02)
[2024-06-10 16:33] LABS: Glucose,Whole Blood 285 mg/dL (70-110)
--- NOTE | 2024-06-10 18:06 | P.PN ---
Subjective 59-year-old male, history of hypertension, hyperlipidemia, atrial fibrillation, asthma/COPD, sleep apnea, who [facility] because he was more lethargic and his pulse ox was low at the prison. Patient normally is on 2 L of oxygen at home. Patient himself wakes up and has no complaints however he is quick to go back to sleep. Patient has had no history of fever or chills patient denied any chest pain or palpitation. Patient has any abdominal pain patient has nausea vomiting diarrhea Blood work reveals WBC of 5.3, hemoglobin of 13.6 and platelet count of 144, sodium 138, potassium 4.6, BUNs/creatinine of 55/1.8 and blood glucose of 155, magnesium elevated at 2.5, lactic acid level of 1.5, troponin 0.023, ABG reveals pH of 7.24, pCO2 of 84, pO2 of 63; patient is admitted for further treatment for pulmonary edema hypercapnia Chest x-ray completed in ED reveals pulmonary edema 24-hour interval change 06/07/2024, -Patient is seen and evaluated in room at bedside; patient is doing well today, less shortness of breath less cough, no wheezing, no chest pain, no fever, no chills, no hemoptysis --presently on 3 L nasal cannula, and his O2 saturation is 100% hemodynamically stable blood pressure is 116/73. Review shows WBC count is 7.5 hemoglobin is 15.2 basic metabolic profile is normal bicarb is 36 BUN 50 creatinine 1.55, steadily improving compared to creatinine of 1.81 on admission Continue bronchodilators and methylprednisolone 40 mg IV every 8 hours Continue diuretics, Lasix 40 mg IV push every 8 hours, continue Diamox to 50 mg p.o. twice daily Continue amiodarone and Eliquis 06/08 Patient is awake alert, sitting at the bedside, looks tired. Patient has been using BiPAP machine all night but he could not sleep well because of frequent epistaxis happened last night. Currently epistaxis is stopp ed. No other bleeding from anywhere else. No headache dizziness or new weakness numbness. No chest pain. He still complaining from dyspnea but improving, leg swelling is better. No other GI/ symptom He is currently on 4 L oxygen via nasal cannula, at home he was using 2 L. I discussed the risk and benefits of anticoagulation including Eliquis and he agrees. Eliquis was resumed and we will going to monitor for bleeding. He is currently on Protonix 40 mg p.o. daily 06/09 Patient still with breathing difficulty. He is not in respiratory distress while at rest but he has still has limited air entry in both sides. He is using BiPAP overnight IV Lasix lowered to twice daily. Creatinine was 1.9. Check creatinine tomorrow Metoprolol dose increased 150 twice daily and to 200 mg in the morning and 200 mg in the evening Patient also remains on IV Solu-Medrol 40 mg Echocardiogram done yesterday showing ejection fraction of 60 to 65%, it was suboptimal study 06/10 Patient overall doing okay His breathing is quiet but looks at baseline. He is currently on 3 L of oxygen which is same home dose of 2-3. Patient confirms to me he has a concentrator and machine at home for his oxygen. Also he confirms to me he has Eliquis at home. Patient adamant not to go to subacute rehab, he says he had bad experience last time. Patient thus will be discharged home with home care. However multiple home agency rejected the patient. We will discussed with the patient and still recommend to go to subacute rehab if he agrees He has superficial wound on the tip of his right second toe. Wound consult is requested Overall doing well. Pulmonary team cleared him for discharge. [employer] jericho mendoza recommend to monitor him 1 more day. After his IV Lasix switched to oral dose. Will monitor creatinine tomorrow Possible discharge in 24 to 48 hours Objective - Vital Signs Vital signs: Vital Signs Temp 98.0 F 06/10/24 16:16 Pulse 88 06/10/24 17:20 Resp 18 06/10/24 17:20 BP 101/52 06/10/24 16:16 Pulse Ox 94 L 06/10/24 16:16 FiO2 35 06/10/24 10:00 Intake & Output 06/09/24 06/10/24 06/10/24 18:59 06:59 18:59 Intake Total 143 28 2116 Balance 595 26 9751 Weight 152.2 kg 152.2 kg Intake: IV 20 10 20 Invasive Line 2 20 10 20 Oral 956 [id number] Other: Voiding Method Urinal Urinal Urinal Diaper Diaper Diaper - Exam -GENERAL: The patient is alert and oriented x3, not in any acute distress. Well developed, well nourished. Obese. Looks tired HEENT: Pupils are round and equally reacting to light. EOMI. No scleral icterus. No conjunctival pallor. Normocephalic, atraumatic. No pharyngeal erythema. No thyromegaly. CARDIOVASCULAR: S1 and S2 present. No murmurs, rubs, or gallops. -PULMONARY: Chest is clear to auscultation, no wheezing , no crackles. Decreased air entry on both sides ABDOMEN: Soft, nontender, nondistended, normoactive bowel sounds. No palpable organomegaly. MUSCULOSKELETAL: No joint swelling or deformity. EXTREMITIES: No cyanosis, clubbing, or pedal edema. NEUROLOGICAL: Gross neurological examination did not reveal any focal deficits. SKIN: No rashes. no petechiae. - Labs CBC & Chem 7: 06/07/24 09:07 06/10/24 05:58 Labs: Abnormal Lab Results - Last 24 Hours (Table) 06/09/24 06/10/24 06/10/24 Range/Units 20:15 05:51 05:58 Sodium 136 L (137-145) mmol/L Chloride 95 L (98-107) mmol/L Carbon Dioxide 39 H (22-30) mmol/L BUN 67 H (9-20) mg/dL Creatinine 1.83 H (0.66-1.25) mg/dL Glucose 248 H (74-99) mg/dL POC Glucose (mg/dL) 204 H 266 H (70-110) mg/dL 06/10/24 06/10/24 Range/Units 11:24 16:31 Sodium (137-145) mmol/L Chloride (98-107) mmol/L Carbon Dioxide (22-30) mmol/L BUN (9-20) mg/dL Creatinine (0.66-1.25) mg/dL Glucose (74-99) mg/dL POC Glucose (mg/dL) 319 H 285 H (70-110) mg/dL Assessment and Plan Assessment: 1. Pulmonary edema, secondary to acute diastolic CHF with preserved ejection fraction 2. Hypercapnia; patient has history of COPD/asthma; mild exacerbation 3. Atrial fibrillation; controlled ventricular response 4. Hyperglycemia; uncontrolled diabetes mellitus with long-term insulin use -- Lantus 15 units SQ twice daily; NovoLog 5 units SQ AC -Will monitor Accu-Cheks before every meal and at bedtime with insulin sliding scale 5. Hypertension; metoprolol 150 mg daily 6. Hyperlipidemia; 7. BPH Plan: Continue with oralLasix, lowered to twice per day. 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 and 200 mg a.m. Continue with insulin Monitor creatinine Wound consult Resumed Eliquis with risk and benefits explained for him and he is agreeable. Patient still at risk of bleeding and will be monitored closely Cardiology and pulmonary consult Labs and medication were reviewed.. Continue same treatment. Continue with symptomatic treatment. Resume home medication. Monitor labs and vitals. DVT and GI prophylaxis. Further recommendations as per clinical course of the patient DVT prophylaxis: Eliquis GI Prophylaxis: Protonix PT/OT: Pending Prognosis is guarded
[2024-06-10 20:19] LABS: Glucose,Whole Blood 417 mg/dL (70-110)
[2024-06-10] MEDS: INSULIN ASPART (NovoLOG) 100 UNIT/ML VIAL SQ SCH (21:26)
[2024-06-11 06:07] LABS: Glucose,Whole Blood 226 mg/dL (70-110)
[2024-06-11] MEDS: FUROSEMIDE 10 MG/ML 4 ML VIAL IV STA (06:10)
[2024-06-11] MEDS: IPRATROPIUM-ALBUTEROL 3 ML NEB INHALATION PRN (06:10)
[2024-06-11] MEDS: LORazepam 2 MG/ML INJ IV ONE (06:24)
[2024-06-11] MEDS: FUROSEMIDE 10 MG/ML 2 ML VIAL IV ONE ×2 (06:26→06:30)
[2024-06-11] MEDS: HALOPERIDOL LACTATE 5 MG/ML 1 ML VIAL IM STA (06:33)
--- NOTE | 2024-06-11 06:41 | XR ---
EXAMINATION TYPE: XR chest 1V portable DATE OF EXAM: 06/11/2024 CLINICAL HISTORY: Difficulty breathing progress study. TECHNIQUE: Single AP portable upright view of the chest is obtained. COMPARISON: Chest x-ray from one week earlier FINDINGS: Persistent cardiomegaly with improved central vascular congestion. Suboptimal evaluation o f the bases due to portable technique and large body habitus. Osseous structures are intact. IMPRESSION: Cardiomegaly remains present. Improved central vascular congestion noted. No new acute fo willy infiltrate clearly seen. [facility], , 06/11/2024 6:38 AM
[2024-06-11 06:43] LABS: Glucose,Whole Blood 228 mg/dL (70-110)
[2024-06-11 06:43] LABS: ABG HCO3 29 mmol/L (21-25); ABG Oxygen Saturation 95.3 % (94-97); ABG PCO2 46 mmHg (35-45); ABG PH 7.41 (7.35-7.45); ABG PO2 78 mmHg (83-108); ABG TCO2 30 mmol/L (19-24); Allen Test Performed? Yes
[2024-06-11 07:56] LABS: African American GFR (CKD) 53 (>60 ml/min/1.73 sqM); Anion Gap 8 mmol/L; Blood Urea Nitrogen 73 mg/dL (9-20); Calcium 8.8 mg/dL (8.4-10.2); Carbon Dioxide 31 mmol/L (22-30); Chloride 96 mmol/L (98-107); Glucose 217 mg/dL (74-99); Non-African American GFR(CKD) 46 (>60 ml/min/1.73 sqM); Potassium 4.6 mmol/L (3.5-5.1); Sodium 135 mmol/L (137-145)
[2024-06-11] MEDS ORDERED: HALOPERIDOL LACTATE 5 MG/ML 1 ML VIAL IM PRN ×2 (08:59→09:00)
[2024-06-11] MEDS ORDERED: LORazepam 2 MG/ML INJ IM PRN (09:00)
--- NOTE | 2024-06-11 09:28 | P.PN ---
Subjective Progress Note Date: 06/11/24 Patient is a 59-year-old male who is currently admitted to the hospital with pulmonary edema. He was transferred to the ICU overnight for labored breathing. He was placed on BiPAP and given IV Lasix. Patient's heart rates increased back up into the low 100s; persistent atrial fibrillation. Patient interviewed and examined resting in bed. He is currently on BiPAP. Mildly labored breathing. GENERAL: Well-appearing, well-nourished and in no acute distress. NECK: Supple without JVD or thyromegaly. LUNGS: Breath sounds diminished to auscultation bilaterally. Respiration equal and mildly labored. No wheezes, rales or rhonchi. HEART: Irregular rate and rhythm without murmurs, rubs or gallops. S1 and S2 heard. EXTREMITIES: Normal range of motion. Bilateral leg wraps. TELEMETRY: A-fib with heart rates in the low 100s LABS: Sodium 135, potassium 4.6, BUN 73, creatinine 1.61 IMPRESSION: Acute on chronic heart failure with preserved EF Persistent atrial fibrillation History of cardioversion, 04/08/2024 Diabetes mellitus type 2 Chronic kidney disease stage III Hypertension Hyperlipidemia End-stage COPD Obstructive sleep apnea Morbid obesity with BMI of 44 PLAN: Increase p.m. dose of beta-ag to 200 mg Continue oral amiodarone Aggressive pulmonary hygiene Further recommendations to be based upon clinical course I am dictating on behalf of Dr Carmine Dickerson's history/physical and as sessment/plan. Objective - Vital Signs Vital signs: Vital Signs Temp 99.8 F H 06/11/24 08:30 Pulse 113 H 06/11/24 09:00 Resp 23 06/11/24 09:00 BP 100/59 06/11/24 09:00 Pulse Ox 94 L 06/11/24 09:00 FiO2 35 06/11/24 08:00 Intake & Output 06/10/24 06/11/24 06/11/24 18:59 06:59 18:59 Intake Total 1338 Balance 1338 Weight 152.2 kg 151.5 kg Intake: IV 20 Invasive Line 2 20 Oral 1318 Other: Voiding Method Urinal Urinal Diaper Diaper - Labs CBC & Chem 7: 06/07/24 09:07 06/11/24 07:14 Labs: Abnormal Lab Results - Last 24 Hours (Table) 06/10/24 06/10/24 06/10/24 Range/Units 11:24 16:31 20:18 ABG pCO2 (35-45) mmHg ABG pO2 (83-108) mmHg ABG HCO3 (21-25) mmol/L ABG Total CO2 (19-24) mmol/L Sodium (137-145) mmol/L Chloride (98-107) mmol/L Carbon Dioxide (22-30) mmol/L BUN (9-20) mg/dL Creatinine (0.66-1.25) mg/dL Glucose (74-99) mg/dL POC Glucose (mg/dL) 319 H 285 H 417 H (70-110) mg/dL 06/11/24 06/11/24 06/11/24 Range/Units 06:06 06:40 06:41 ABG pCO2 46 H (35-45) mmHg ABG pO2 78 L (83-108) mmHg ABG HCO3 29 H (21-25) mmol/L ABG Total CO2 30 H (19-24) mmol/L Sodium (137-145) mmol/L Chloride (98-107) mmol/L Carbon Dioxide (22-30) mmol/L BUN (9-20) mg/dL Creatinine (0.66-1.25) mg/dL Glucose (74-99) mg/dL POC Glucose (mg/dL) 226 H 228 H (70-110) mg/dL 06/11/24 Range/Units 07:14 ABG pCO2 (35-45) mmHg ABG pO2 (83-108) mmHg ABG HCO3 (21-25) mmol/L ABG Total CO2 (19-24) mmol/L Sodium 135 L (137-145) mmol/L Chloride 96 L (98-107) mmol/L Carbon Dioxide 31 H (22-30) mmol/L BUN 73 H (9-20) mg/dL Creatinine 1.61 H (0.66-1.25) mg/dL Glucose 217 H (74-99) mg/dL POC Glucose (mg/dL) (70-110) mg/dL
[2024-06-11 09:45] LABS: Glucose,Whole Blood 218 mg/dL (70-110)
[2024-06-11] MEDS ORDERED: HALOPERIDOL LACTATE 5 MG/ML 1 ML VIAL IVP PRN ×2 (10:03)
[2024-06-11] MEDS ORDERED: LORazepam 2 MG/ML INJ IV PRN (10:04)
[2024-06-11 11:39] LABS: Glucose,Whole Blood 274 mg/dL (70-110)
--- NOTE | 2024-06-11 11:42 | P.PN ---
Subjective Progress Note Date: 06/11/24 Principal diagnosis: Respiratory failure. This is a 59-year-old white male familiar to my service, known history of multiple medical problems including severe end-stage COPD, obstructive sleep apnea syndrome, BiPAP dependent almost, history of chronic hypoxic and chronic hypercapnic respiratory failure, patient is frequently in the hospital with similar presentation each time. This time he was seen in the ER with worsening shortness of breath, and he noted that his O2 saturation has been getting less and less, patient is known to be noncompliant at times with his BiPAP. At any rate patient was seen in the ER, ABG showed relative hypoxia with a pO2 of 63 on 35% FiO2 84 pH of 7.24 patient had positive drug screen for oxycodone and benzodiazepines, patient was placed on BiPAP and I saw him in the ER, recommended that the patient goes on his usual treatment with bronchodilators, BiPAP, and diuretics. Patient himself is not a great historian and he was not a great historian today when I saw him in the ER as he was hypercapnic on BiPAP, lethargic but arousable and did not follow much instructions labs showed normal CBC, abnormal ABG as noted earlier, Bicarb of 39 BUN 55 creatinine 1.81 elevated BNP level, and chest x-ray showing evidence of pulmonary edema Patient was seen today on 06/06/2024, feeling a bit better today, breathing easier, patient is on bronchodilators and is also on BiPAP intermittently, now on 3 L nasal cannula does not seem to be in any distress, remains on diuretics for his congestive heart failure. Improving and he is almost back to baseline. WBC is 4.2 hemoglobin 13.1 electrolytes are normal bicarb is 38 BUN is 49 creatinine 1.58 Seen today on 06/07/2024, patient is doing well today, less shortness of breath less cough, no wheezing, no chest pain, no fever, no chills, no hemoptysis presently on 3 L nasal cannula, and his O2 saturation is 100% hemodynamically stable blood pressure is 116/73. WBC count is 7.5 hemoglobin is 15.2 basic metabolic profile is normal bicarb is 36 BUN 50 creatinine 1.55, steadily improving compared to creatinine of 1.81 on admission Progress note dated June 08, 2024. The patient is seen in room 350. He continues on oxygen at 4 L. No IV fluids. The use of BiPAP, last night, only for short period of time, because apparently caused a nosebleed. His BiPAP settings were seen over 6, 35%. He is sitting on the side of the bed. In no distress. Current labs include sodium 136, potassium 4.7, chlorides 90, CO2 34, BUN 57, and creatinine 1.92. Glucose is 243. Calcium is 8.5. Progress note dated June 09, 2024. 59-year-old male seen today in room 350. The patient remains on nasal O2 at 3 L. He did use a BiPAP for 5 hours last night, with settings of 16/6, 35%. He is not receiving any IV fluids. He is feeling about the same. No new labs today other than a glucose of 210. Progress note dated June 10, 2024. 59-year-old male seen today in room 350. The patient is doing about the same. The nurses asked whether or not he could be discharged, and from our perspecti ve, he can be. He is on BiPAP at 16/6, 35% in the evening. During the daytime, he is on nasal O2, 2 L. He is not receiving any IV fluids. He has no new complaints today. Sodium 136, potassium 4.6, chlorides 95, CO2 39, BUN 67, creatinine 1.83. Glucose is 319. Progress note dated June 11, 2024. 59-year-old male with a history of severe COPD. The patient was being managed up on the third floor, but this morning apparently became very agitated. He was pulling off his BiPAP. Saturations were quite low. The patient was transferred to the intensive care unit, for further monitoring and management. A blood gas was done showing a pO2 of 78, pCO2 of 46, pH of 7.41. BiPAP settings of 16/6, and 35%. Is not receiving any IV fluids. The patient is a DO NOT RESUSCITATE patient. I have added Ativan 1 mg IV every 6 hours, and Haldol 48 mg IM or IV, every 4 hours as needed. The patient is quite agitated. Sodium 135, potassium 4.6, chlorides 96, CO2 31, BUN 73, creatinine 1.61. Glucose is 218. Calcium is 8.8. Chest x-ray shows evidence of cardiomegaly, and some pulmonary vascular congestion. Objective - Vital Signs Vital signs: Vital Signs Temp 99.8 F H 06/11/24 08:30 Pulse 116 H 06/11/24 10:07 Resp 23 06/11/24 09:00 BP 100/59 06/11/24 09:00 Pulse Ox 94 L 06/11/24 09:00 FiO2 35 06/11/24 09:50 Intake & Output 06/10/24 06/11/24 06/11/24 18:59 06:59 18:59 Intake Total 1348 Output Total 925 Balance 1348 -925 Weight 152.2 kg 151.5 kg Intake: IV 30 Invasive Line 2 20 Invasive Line 3 10 Oral 1318 Output: Urine 925 Other: Voiding Method Urinal Urinal Diaper Diaper - Exam The patient is quite confused, and agitated. Currently on BiPAP. HEENT examination is grossly unremarkable. Mucous membranes are moist. No oral lesions. Neck supple. Full range of motion. No adenopathy thyromegaly or neck vein distention. Cardiovascular examination reveals an irregular rhythm and rate. S1-S2 normal. No S3 or S4. No discernible murmur noted. Heart sounds are distant. Lungs reveal mostly clear breath sounds. Breath sounds are diminished. No wheezes. No rhonchi. No distinct crackles noted. Abdomen, but obese. Bowel sounds are noted. Extremities reveal 2+ edema, and chronic venous stasis changes. No clubbing or cyanosis. Both legs are wrapped. Skin is without rash or lesion. Neurologic examination is brief but nonfocal. - Labs CBC & Chem 7: 06/07/24 09:07 06/11/24 07:14 Labs: Abnormal Lab Results - Last 24 Hours (Table) 06/10/24 06/10/24 06/11/24 Range/Units 16:31 20:18 06:06 ABG pCO2 (35-45) mmHg ABG pO2 (83-108) mmHg ABG HCO3 (21-25) mmol/L ABG Total CO2 (19-24) mmol/L Sodium (137-145) mmol/L Chloride (98-107) mmol/L Carbon Dioxide (22-30) mmol/L BUN (9-20) mg/dL Creatinine (0.66-1.25) mg/dL Glucose (74-99) mg/dL POC Glucose (mg/dL) 285 H 417 H 226 H (70-110) mg/dL Hemoglobin A1c (<=6.0) % 06/11/24 06/11/24 06/11/24 Range/Units 06:40 06:41 07:14 ABG pCO2 46 H (35-45) mmHg ABG pO2 78 L (83-108) mmHg ABG HCO3 29 H (21-25) mmol/L ABG Total CO2 30 H (19-24) mmol/L Sodium (137-145) mmol/L Chloride (98-107) mmol/L Carbon Dioxide (22-30) mmol/L BUN (9-20) mg/dL Creatinine (0.66-1.25) mg/dL Glucose (74-99) mg/dL POC Glucose (mg/dL) 228 H (70-110) mg/dL Hemoglobin A1c 7.1 H (<=6.0) % 06/11/24 06/11/24 Range/Units 07:14 09:44 ABG pCO2 (35-45) mmHg ABG pO2 (83-108) mmHg ABG HCO3 (21-25) mmol/L ABG Total CO2 (19-24) mmol/L Sodium 135 L (137-145) mmol/L Chloride 96 L (98-107) mmol/L Carbon Dioxide 31 H (22-30) mmol/L BUN 73 H (9-20) mg/dL Creatinine 1.61 H (0.66-1.25) mg/dL Glucose 217 H (74-99) mg/dL POC Glucose (mg/dL) 218 H (70-110) mg/dL Hemoglobin A1c (<=6.0) % Assessment and Plan Assessment: Acute on chronic hypoxemic and hypercapnic respiratory failure, secondary to chronic diastolic CHF exacerbation, as well as COPD exacerbation. Small bilateral pleural effusions. Intolerant of BiPAP. Severe COPD, stage IV, with an FEV1 that is 22% of predicted. Obstructive sleep apnea syndrome, noncompliant with noninvasive positive pressure ventilation. Morbid obesity with a BMI of 48.7 kg/m. Stage IIIa chronic kidney disease. Atrial fibrillation. Chronic lower extremity edema. History of hypertension. History of hyperlipidemia. Former tobacco dependence. Severe cellulitis of the right lower extremity. Plan: Plan dated June 08, 2024. The patient could not tolerate the BiPAP yesterday. He states that it caused him to have a nosebleed. Currently, labs, x-rays, and all medications are reviewed. We will continue to follow the patient, make recommendations along the way. He is currently on 4 L of nasal cannula. The patient will continue on diuretics, amiodarone, and Eliquis. The patient also continues on corticosteroids, bronchodilators. Labs, x-rays, and all medications are reviewed. Prognosis is guarded. Plan dated June 09, 2024. The patient appears to be pretty much at baseline. He is on 3 L. Saturations are in the low to mid 90s. He is not receiving any IV fluids. The patient did use BiPAP last night, with settings of 16/6, 35%. The night before he did not use it, because he developed epistaxis. Labs, x-rays, medications are reviewed. We will continue to follow the patient, make recommendations along the way. Prognosis is guarded. Plan dated June 10, 2024. The patient appears to be relatively stable. The patient's labs are reviewed. X-rays and medications are reviewed. The patient is down to 2 L nasal O2. He is not receiving any IV fluids. He did use BiPAP last night, although he cannot tell me how long he used it for. BiPAP settings are 16/6, 35%. Labs, x-rays, and all medications are reviewed. Prognosis is certainly guarded. The patient has had multiple admissions to this hospital in the recent future. Plan dated June 11, 2024. The patient deteriorated on the general medical floor, was transferred down to the intensive care unit for further monitoring and management. The patient is currently on BiPAP. He was pulling his BiPAP device off on the floor, and his saturations were quite low. Currently, he is on 16/6, 35%. He is not receiving any IV fluids. I did add some Ativan 1 mg IV every 6 hours and Haldol 48 mg IV/IM, every 4 hours as needed. His blood gas done on the floor showed a pO2 of 78, pCO2 of 46, pH of 7.41. The patient is overall prognosis remains poor. He is a DO NOT RESUSCITATE patient. Time with Patient: Greater than 30
[2024-06-11] MEDS: methylPREDNISolone SOD SUCCI 125 MG/2 ML VIAL IV SCH (12:17)
[2024-06-11] MEDS: BUDESONIDE 1 MG/2 ML NEBU INHALATION SCH (12:18)
[2024-06-11] MEDS: FORMOTEROL FUMARATE 20 MCG/2 ML NEBU INHALATION SCH (12:18)
[2024-06-11] MEDS: SODIUM CHLORIDE 0.9% 1,000 ML IV ONE ×2 (13:26→15:29)
[2024-06-11] MEDS: LACTATED RINGERS 1,000 ML IV SCH (14:00)
[2024-06-11 17:03] LABS: Glucose,Whole Blood 175 mg/dL (70-110)
[2024-06-11 20:07] LABS: Glucose,Whole Blood 170 mg/dL (70-110)
--- NOTE | 2024-06-11 22:08 | P.PN ---
Subjective 59-year-old male, history of hypertension, hyperlipidemia, atrial fibrillation, asthma/COPD, sleep apnea, who comes from the assisted because he was more lethargic and his pulse ox was low at the assisted. Patient normally is on 2 L of oxygen at home. Patient himself wakes up and has no complaints however he is quick to go back to sleep. Patient has had no history of fever or chills patient denied any chest pain or palpitation. Patient has any abdominal pain patient has nausea vomiting diarrhea Blood work reveals WBC of 5.3, hemoglobin of 13.6 and platelet count of 144, sodium 138, potassium 4.6, BUNs/creatinine of 55/1.8 and blood glucose of 155, magnesium elevated at 2.5, lactic acid level of 1.5, troponin 0.023, ABG reveals pH of 7.24, pCO2 of 84, pO2 of 63; patient is admitted for further treatment for pulmonary edema hypercapnia Chest x-ray completed in ED reveals pulmonary edema 24-hour interval change 06/07/2024, -Patient is seen and evaluated in room at bedside; patient is doing well today, less shortness of breath less cough, no wheezing, no chest pain, no fever, no chills, no hemoptysis --presently on 3 L nasal cannula, and his O2 saturation is 100% hemodynamically stable blood pressure is 116/73. Review shows WBC count is 7.5 hemoglobin is 15.2 basic metabolic profile is normal bicarb is 36 BUN 50 creatinine 1.55, steadily improving compared to creatinine of 1.81 on admission Continue bronchodilators and methylprednisolone 40 mg IV every 8 hours Continue diuretics, Lasix 40 mg IV push every 8 hours, continue Diamox to 50 mg p.o. twice daily Continue amiodarone and Eliquis 06/08 Patient is awake alert, sitting at the bedside, looks tired. Patient has been using BiPAP machine all night but he could not sleep well because of frequent epistaxis happened last night. Currently epistaxis is stopp ed. No other bleeding from anywhere else. No headache dizziness or new weakness numbness. No chest pain. He still complaining from dyspnea but improving, leg swelling is better. No other GI/ symptom He is currently on 4 L oxygen via nasal cannula, at home he was using 2 L. I discussed the risk and benefits of anticoagulation including Eliquis and he agrees. Eliquis was resumed and we will going to monitor for bleeding. He is currently on Protonix 40 mg p.o. daily 06/09 Patient still with breathing difficulty. He is not in respiratory distress while at rest but he has still has limited air entry in both sides. He is using BiPAP overnight IV Lasix lowered to twice daily. Creatinine was 1.9. Check creatinine tomorrow Metoprolol dose increased 150 twice daily and to 200 mg in the morning and 200 mg in the evening Patient also remains on IV Solu-Medrol 40 mg Echocardiogram done yesterday showing ejection fraction of 60 to 65%, it was suboptimal study 06/10 Patient overall doing okay His breathing is quiet but looks at baseline. He is currently on 3 L of oxygen which is same home dose of 2-3. Patient confirms to me he has a concentrator and machine at home for his oxygen. Also he confirms to me he has Eliquis at home. Patient adamant not to go to subacute rehab, he says he had bad experience last time. Patient thus will be discharged home with home care. However multiple home agency rejected the patient. We will discussed with the patient and still recommend to go to subacute rehab if he agrees He has superficial wound on the tip of his right second toe. Wound consult is requested Overall doing well. Pulmonary team cleared him for discharge. Railcar Switchman jericho mendoza recommend to monitor him 1 more day. After his IV Lasix switched to oral dose. Will monitor creatinine tomorrow Possible discharge in 24 to 48 hours 06/11 Patient was quite agitated overnight, he was hypoxic. He was transferred to the ICU after given some sedatives and placed back on BiPAP. Currently tolerating diet well and his oxygenation is improved Metoprolol dose was increased to 200 mg daily. Repeat chest x-ray showed cardiomegaly with pulm pulmonary vascular congestion, mild He remains on IV Solu-Medrol 60 mg. Normal Saline 75 mL started Objective - Vital Signs Vital signs: Vital Signs Temp 99.8 F H 06/11/24 08:30 Pulse 116 H 06/11/24 10:07 Resp 23 06/11/24 09:00 BP 100/59 06/11/24 09:00 Pulse Ox 94 L 06/11/24 09:00 FiO2 35 06/11/24 09:50 Intake & Output 06/10/24 06/11/24 06/11/24 18:59 06:59 18:59 Intake Total 1348 Output Total 925 Balance 1348 -925 Weight 152.2 kg 151.5 kg Intake: IV 30 Invasive Line 2 20 Invasive Line 3 10 Oral 1318 Output: Urine 925 Other: Voiding Method Urinal Urinal Diaper Diaper - Exam -GENERAL: The patient is alert and oriented x3, not in any acute distress. Well developed, well nourished. Obese. Looks tired HEENT: Pupils are round and equally reacting to light. EOMI. No scleral icterus. No conjunctival pallor. Normocephalic, atraumatic. No pharyngeal erythema. No thyromegaly. CARDIOVASCULAR: S1 and S2 present. No murmurs, rubs, or gallops. -PULMONARY: Chest is clear to auscultation, no wheezing , no crackles. Decreased air entry on both sides ABDOMEN: Soft, nontender, nondistended, normoactive bowel sounds. No palpable o rganomegaly. MUSCULOSKELETAL: No joint swelling or deformity. EXTREMITIES: No cyanosis, clubbing, or pedal edema. NEUROLOGICAL: Gross neurological examination did not reveal any focal deficits. SKIN: No rashes. no petechiae. - Labs CBC & Chem 7: 06/07/24 09:07 06/11/24 07:14 Labs: Abnormal Lab Results - Last 24 Hours (Table) 06/10/24 06/10/24 06/10/24 Range/Units 11:24 16:31 20:18 ABG pCO2 (35-45) mmHg ABG pO2 (83-108) mmHg ABG HCO3 (21-25) mmol/L ABG Total CO2 (19-24) mmol/L Sodium (137-145) mmol/L Chloride (98-107) mmol/L Carbon Dioxide (22-30) mmol/L BUN (9-20) mg/dL Creatinine (0.66-1.25) mg/dL Glucose (74-99) mg/dL POC Glucose (mg/dL) 319 H 285 H 417 H (70-110) mg/dL Hemoglobin A1c (<=6.0) % 06/11/24 06/11/24 06/11/24 Range/Units 06:06 06:40 06:41 ABG pCO2 46 H (35-45) mmHg ABG pO2 78 L (83-108) mmHg ABG HCO3 29 H (21-25) mmol/L ABG Total CO2 30 H (19-24) mmol/L Sodium (137-145) mmol/L Chloride (98-107) mmol/L Carbon Dioxide (22-30) mmol/L BUN (9-20) mg/dL Creatinine (0.66-1.25) mg/dL Glucose (74-99) mg/dL POC Glucose (mg/dL) 226 H 228 H (70-110) mg/dL Hemoglobin A1c (<=6.0) % 06/11/24 06/11/24 06/11/24 Range/Units 07:14 07:14 09:44 ABG pCO2 (35-45) mmHg ABG pO2 (83-108) mmHg ABG HCO3 (21-25) mmol/L ABG Total CO2 (19-24) mmol/L Sodium 135 L (137-145) mmol/L Chloride 96 L (98-107) mmol/L Carbon Dioxide 31 H (22-30) mmol/L BUN 73 H (9-20) mg/dL Creatinine 1.61 H (0.66-1.25) mg/dL Glucose 217 H (74-99) mg/dL POC Glucose (mg/dL) 218 H (70-110) mg/dL Hemoglobin A1c 7.1 H (<=6.0) % Assessment and Plan Assessment: 1. Pulmonary edema, secondary to acute diastolic CHF with preserved ejection fraction 2. Hypercapnia; patient has history of COPD/asthma; mild exacerbation 3. Atrial fibrillation; controlled ventricular response 4. Hyperglycemia; uncontrolled diabetes mellitus with long-term insulin use -- Lantus 15 units SQ twice daily; NovoLog 5 units SQ AC -Will monitor Accu-Cheks before every meal and at bedtime with insulin sliding scale 5. Hypertension; metoprolol 150 mg daily 6. Hyperlipidemia; 7. BPH Plan: Transfer the patient to the ICU Continue with BiPAP m At night Continue with oral Lasix, lowered to twice per day. Amiodarone was discontinued by radio director Continued on metoprolol 150 milligram p.m. and 200 mg a.m. Continue with insulin Monitor creatinine Wound consult Resumed Eliquis with risk and benefits explained for him and he is agreeable. Patient still at risk of bleeding and will be monitored closely Cardiology and pulmonary consult Labs and medication were reviewed.. Continue same treatment. Continue with symptomatic treatment. Resume home medication. Monitor labs and vitals. DVT and GI prophylaxis. Further recommendations as per clinical course of the patient DVT prophylaxis: Eliquis GI Prophylaxis: Protonix PT/OT: Pending Prognosis is guarded
[2024-06-12] MEDS: METOPROLOL TARTRATE 50 MG TAB PO SCH (01:32)
[2024-06-12 04:42] LABS: African American GFR (CKD) 55 (>60 ml/min/1.73 sqM); Anion Gap 3 mmol/L; Blood Urea Nitrogen 66 mg/dL (9-20); Calcium 8.1 mg/dL (8.4-10.2); Carbon Dioxide 37 mmol/L (22-30); Chloride 98 mmol/L (98-107); Glucose 135 mg/dL (74-99); Non-African American GFR(CKD) 47 (>60 ml/min/1.73 sqM); Potassium 3.9 mmol/L (3.5-5.1); Sodium 138 mmol/L (137-145)
[2024-06-12 05:06] LABS: Anisocytosis Slight; Basophils % (A) 0 %; Eosinophils % (A) 0 %; HCT 43.3 % (39.0-53.0); HGB 13.5 gm/dL (13.0-17.5); Hypochromasia Moderate; Lymphocytes # (A) 0.4 k/uL (1.0-4.8); Lymphocytes % (A) 5 %; MCH 28.8 pg (25.0-35.0); MCHC 31.3 g/dL (31.0-37.0); MCV 92.1 fL (80.0-100.0); Mean Platelet Volume 9.8; Monocytes # (A) 0.4 k/uL (0-1.0); Monocytes % (A) 5 %; Neutrophils # (A) 7.9 k/uL (1.3-7.7); WBC 8.8 k/uL (3.8-10.6)
[2024-06-12 06:00] LABS: Platelet Count 91 k/uL (150-450)
[2024-06-12 06:03] LABS: Glucose,Whole Blood 182 mg/dL (70-110)
[2024-06-12 06:05] LABS: Band Neutrophils % 23 %; Lymphocytes # (M) 0.53 k/uL (1.0-4.8); Monocytes # (M) 0.35 k/uL (0-1.0); Neutrophils % (M) 67 %; Nucleated Red Blood Cells 0 /100 WBC (0-0); Total Cells Counted 100
--- NOTE | 2024-06-12 06:59 | XR ---
EXAMINATION TYPE: XR chest 1V portable DATE OF EXAM: 06/12/2024 5:15 AM COMPARISON: 06/11/2024 CLINICAL INDICATION: Male, 59 years old with history of assess lungs, previous abnormal chest, respir atory distress TECHNIQUE: XR chest 1V portable view(s) obtained. FINDINGS: The heart size is enlarged. The pulmonary vasculature is upper limits for normal. Mild bibasilar infiltrates may be present. Correlate for atelectasis IMPRESSION: 1. Mild bibasilar infiltrates, correlate for atelectasis [facility], , 06/12/2024 6:56 AM
--- NOTE | 2024-06-12 09:40 | P.PN ---
Subjective 59-year-old male, history of hypertension, hyperlipidemia, atrial fibrillation, asthma/COPD, sleep apnea, who [facility] because he was more lethargic and his [facility] was low at the [facility]. Patient normally is on 2 L of oxygen at home. Patient himself wakes up and has no complaints however he is quick to go back to sleep. Patient has had no history of fever or chills patient denied any chest pain or palpitation. Patient has any abdominal pain patient has nausea vomiting diarrhea Blood work reveals WBC of 5.3, hemoglobin of 13.6 and platelet count of 144, sodium 138, potassium 4.6, BUNs/creatinine of 55/1.8 and blood glucose of 155, magnesium elevated at 2.5, lactic acid level of 1.5, troponin 0.023, ABG reveals pH of 7.24, pCO2 of 84, pO2 of 63; patient is admitted for further treatment for pulmonary edema hypercapnia Chest x-ray completed in ED reveals pulmonary edema 24-hour interval change 06/07/2024, -Patient is seen and evaluated in room at bedside; patient is doing well today, less shortness of breath less cough, no wheezing, no chest pain, no fever, no chills, no hemoptysis --presently on 3 L nasal cannula, and his O2 saturation is 100% hemodynamically stable blood pressure is 116/73. Review shows WBC count is 7.5 hemoglobin is 15.2 basic metabolic profile is normal bicarb is 36 BUN 50 creatinine 1.55, steadily improving compared to creatinine of 1.81 on admission Continue bronchodilators and methylprednisolone 40 mg IV every 8 hours Continue diuretics, Lasix 40 mg IV push every 8 hours, continue Diamox to 50 mg p.o. twice daily Continue amiodarone and Eliquis 06/08 Patient is awake alert, sitting at the bedside, looks tired. Patient has been using BiPAP machine all night but he could not sleep well because of frequent epistaxis happened last night. Currently epistaxis is stopp ed. No other bleeding from anywhere else. No headache dizziness or new weakness numbness. No chest pain. He still complaining from dyspnea but improving, leg swelling is better. No other GI/ symptom He is currently on 4 L oxygen via nasal cannula, at home he was using 2 L. I discussed the risk and benefits of anticoagulation including Eliquis and he agrees. Eliquis was resumed and we will going to monitor for bleeding. He is currently on Protonix 40 mg p.o. daily 06/09 Patient still with breathing difficulty. He is not in respiratory distress while at rest but he has still has limited air entry in both sides. He is using BiPAP overnight IV Lasix lowered to twice daily. Creatinine was 1.9. Check creatinine tomorrow Metoprolol dose increased 150 twice daily and to 200 mg in the morning and 200 mg in the evening Patient also remains on IV Solu-Medrol 40 mg Echocardiogram done yesterday showing ejection fraction of 60 to 65%, it was suboptimal study 06/10 Patient overall doing okay His breathing is quiet but looks at baseline. He is currently on 3 L of oxygen which is same home dose of 2-3. Patient confirms to me he has a concentrator and machine at home for his oxygen. Also he confirms to me he has Eliquis at home. Patient adamant not to go to subacute rehab, he says he had bad experience last time. Patient thus will be discharged home with home care. However multiple home agency rejected the patient. We will discussed with the patient and still recommend to go to subacute rehab if he agrees He has superficial wound on the tip of his right second toe. Wound consult is requested Overall doing well. Pulmonary team cleared him for discharge. Material Checker jericho mendoza recommend to monitor him 1 more day. After his IV Lasix switched to oral dose. Will monitor creatinine tomorrow Possible discharge in 24 to 48 hours 06/11 Patient was quite agitated overnight, he was hypoxic. He was transferred to the ICU after given some sedatives and placed back on BiPAP. Currently tolerating diet well and his oxygenation is improved Metoprolol dose was increased to 200 mg daily. Repeat chest x-ray showed cardiomegaly with pulm pulmonary vascular congestion, mild He remains on IV Solu-Medrol 60 mg. Normal Saline 75 mL started 06/12 Patient is still in the ICU, on BiPAP with a setting of 16/6 and FiO2 of 30% He is calm not agitated. Patient did not need extra doses of Haldol or Ativan He denies chest pain or any other new complaint He still adamant not to go To subacute rehab upon discharge despite the risk of noncompliance with BiPAP and other medical management Objective - Vital Signs Vital signs: Vital Signs Temp 98.7 F 06/12/24 00:00 Pulse 86 06/12/24 08:11 Resp 16 06/12/24 07:00 BP 99/69 06/12/24 07:00 Pulse Ox 97 06/12/24 06:30 FiO2 35 06/12/24 07:41 Intake & Output 06/11/24 06/12/24 06/12/24 18:59 06:59 18:59 Intake Total 2150 975 0 Output Total 1600 1200 75 Balance 550 -225 -75 Weight 156.1 kg Intake: Intake, IV Titration 2150 975 0 Amount Lactated Ringers 1,000 ml 150 975 0 @ 75 mls/hr IV .[id number] OBI Rx#:[id number] Sodium Chloride 0.9% 1, 2000 000 ml @ 999 mls/hr IV . Q1H1M ONE Rx#:[id number] Output: Urine 1600 1200 75 Other: Voiding Method Indwelling Catheter Indwelling Catheter - Labs CBC & Chem 7: 06/12/24 03:21 06/12/24 03:21 Labs: Abnormal Lab Results - Last 24 Hours (Table) 06/11/24 06/11/24 06/11/24 Range/Units 07:14 09:44 11:38 RDW (11.5-15.5) % Plt Count (150-450) k/uL Neutrophils # (1.3-7.7) k/uL Neutrophils # (Manual) (1.3-7.7) k/uL Lymphocytes # (1.0-4.8) k/uL Lymphocytes # (Manual) (1.0-4.8) k/uL Carbon Dioxide (22-30) mmol/L BUN (9-20) mg/dL Creatinine (0.66-1.25) mg/dL Glucose (74-99) mg/dL POC Glucose (mg/dL) 218 H 274 H (70-110) mg/dL Hemoglobin A1c 7.1 H (<=6.0) % Calcium (8.4-10.2) mg/dL 06/11/24 06/11/24 06/12/24 Range/Units 17:02 20:05 03:21 RDW (11.5-15.5) % Plt Count (150-450) k/uL Neutrophils # (1.3-7.7) k/uL Neutrophils # (Manual) (1.3-7.7) k/uL Lymphocytes # (1.0-4.8) k/uL Lymphocytes # (Manual) (1.0-4.8) k/uL Carbon Dioxide 37 H (22-30) mmol/L BUN 66 H (9-20) mg/dL Creatinine 1.56 H (0.66-1.25) mg/dL Glucose 135 H (74-99) mg/dL POC Glucose (mg/dL) 175 H 170 H (70-110) mg/dL Hemoglobin A1c (<=6.0) % Calcium 8.1 L (8.4-10.2) mg/dL 06/12/24 06/12/24 Range/Units 03:21 06:01 RDW 17.0 H (11.5-15.5) % Plt Count 91 L D (150-450) k/uL Neutrophils # 7.9 H (1.3-7.7) k/uL Neutrophils # (Manual) 7.90 H (1.3-7.7) k/uL Lymphocytes # 0.4 L (1.0-4.8) k/uL Lymphocytes # (Manual) 0.53 L (1.0-4.8) k/uL Carbon Dioxide (22-30) mmol/L BUN (9-20) mg/dL Creatinine (0.66-1.25) mg/dL Glucose (74-99) mg/dL POC Glucose (mg/dL) 182 H (70-110) mg/dL Hemoglobin A1c (<=6.0) % Calcium (8.4-10.2) mg/dL Assessment and Plan Assessment: 1. Pulmonary edema, secondary to acute diastolic CHF with preserved ejection fraction 2. Hypercapnia; patient has history of COPD/asthma; mild exacerbation 3. Atrial fibrillation; controlled ventricular response 4. Hyperglycemia; uncontrolled diabetes mellitus with long-term insulin use -- Lantus 15 units SQ twice daily; NovoLog 5 units SQ AC -Will monitor Accu-Cheks before every meal and at bedtime with insulin sliding scale 5. Hypertension; metoprolol 150 mg daily 6. Hyperlipidemia; 7. BPH 8. Noncompliance Plan: Continue patient to the ICU Continue with BiPAP m At night Continue with oral Lasix, lowered to twice per day. Amiodarone was discontinued by supervisor partial denture department Continued on prolonged 200 mg a.m. Continue with insulin Monitor creatinine Wound consult Resumed Eliquis with risk and benefits explained for him and he is agreeable. Patient still at risk of bleeding and will be monitored closely Cardiology and pulmonary consult Labs and medication were reviewed.. Continue same treatment. Continue with symptomatic treatment. Resume home medication. Monitor labs and vitals. DVT and GI prophylaxis. Further recommendations as per clinical course of the patient DVT prophylaxis: Eliquis GI Prophylaxis: Protonix PT/OT: Pending Prognosis is guarded
[2024-06-12 11:28] LABS: Glucose,Whole Blood 292 mg/dL (70-110)
--- NOTE | 2024-06-12 12:38 | P.PN ---
Subjective Progress Note Date: 06/12/24 Principal diagnosis: Respiratory failure. This is a 59-year-old white male familiar to my service, known history of multiple medical problems including severe end-stage COPD, obstructive sleep apnea syndrome, BiPAP dependent almost, history of chronic hypoxic and chronic hypercapnic respiratory failure, patient is frequently in the hospital with similar presentation each time. This time he was seen in the ER with worsening shortness of breath, and he noted that his O2 saturation has been getting less and less, patient is known to be noncompliant at times with his BiPAP. At any rate patient was seen in the ER, ABG showed relative hypoxia with a pO2 of 63 on 35% FiO2 84 pH of 7.24 patient had positive drug screen for oxycodone and benzodiazepines, patient was placed on BiPAP and I saw him in the ER, recommended that the patient goes on his usual treatment with bronchodilators, BiPAP, and diuretics. Patient himself is not a great historian and he was not a great historian today when I saw him in the ER as he was hypercapnic on BiPAP, lethargic but arousable and did not follow much instructions labs showed normal CBC, abnormal ABG as noted earlier, Bicarb of 39 BUN 55 creatinine 1.81 elevated BNP level, and chest x-ray showing evidence of pulmonary edema Patient was seen today on 06/06/2024, feeling a bit better today, breathing easier, patient is on bronchodilators and is also on BiPAP intermittently, now on 3 L nasal cannula does not seem to be in any distress, remains on diuretics for his congestive heart failure. Improving and he is almost back to baseline. WBC is 4.2 hemoglobin 13.1 electrolytes are normal bicarb is 38 BUN is 49 creatinine 1.58 Seen today on 06/07/2024, patient is doing well today, less shortness of breath less cough, no wheezing, no chest pain, no fever, no chills, no hemoptysis presently on 3 L nasal cannula, and his O2 saturation is 100% hemodynamically stable blood pressure is 116/73. WBC count is 7.5 hemoglobin is 15.2 basic metabolic profile is normal bicarb is 36 BUN 50 creatinine 1.55, steadily improving compared to creatinine of 1.81 on admission Progress note dated June 08, 2024. The patient is seen in room 350. He continues on oxygen at 4 L. No IV fluids. The use of BiPAP, last night, only for short period of time, because apparently caused a nosebleed. His BiPAP settings were seen over 6, 35%. He is sitting on the side of the bed. In no distress. Current labs include sodium 136, potassium 4.7, chlorides 90, CO2 34, BUN 57, and creatinine 1.92. Glucose is 243. Calcium is 8.5. Progress note dated June 09, 2024. 59-year-old male seen today in room 350. The patient remains on nasal O2 at 3 L. He did use a BiPAP for 5 hours last night, with settings of 16/6, 35%. He is not receiving any IV fluids. He is feeling about the same. No new labs today other than a glucose of 210. Progress note dated June 10, 2024. 59-year-old male seen today in room 350. The patient is doing about the same. The nurses asked whether or not he could be discharged, and from our perspecti ve, he can be. He is on BiPAP at 16/6, 35% in the evening. During the daytime, he is on nasal O2, 2 L. He is not receiving any IV fluids. He has no new complaints today. Sodium 136, potassium 4.6, chlorides 95, CO2 39, BUN 67, creatinine 1.83. Glucose is 319. Progress note dated June 11, 2024. 59-year-old male with a history of severe COPD. The patient was being managed up on the third floor, but this morning apparently became very agitated. He was pulling off his BiPAP. Saturations were quite low. The patient was transferred to the intensive care unit, for further monitoring and management. A blood gas was done showing a pO2 of 78, pCO2 of 46, pH of 7.41. BiPAP settings of 16/6, and 35%. Is not receiving any IV fluids. The patient is a DO NOT RESUSCITATE patient. I have added Ativan 1 mg IV every 6 hours, and Haldol 48 mg IM or IV, every 4 hours as needed. The patient is quite agitated. Sodium 135, potassium 4.6, chlorides 96, CO2 31, BUN 73, creatinine 1.61. Glucose is 218. Calcium is 8.8. Chest x-ray shows evidence of cardiomegaly, and some pulmonary vascular congestion. Progress note dated June 12, 2024. 59-year-old male who is again seen in room 253. The patient currently is on BiPAP. BiPAP settings are 16/6, 35%. Will drop the FiO2 down to 30%. He is not receiving any IV fluids. According to the nurse, the patient had a uneventful night last night. Current labs include a white count 8.8, hemoglobin 13.5, hematocrit 43.3, platelet count 91,000. Sodium 138, potassium 3.9, chlorides 98, CO2 37, BUN 66, creatinine 1.56. Glucose is 292. Calcium 8.1. Chest x-ray shows mild bibasilar infiltrates, consistent with atelectasis. Objective - Vital Signs Vital signs: Vital Signs Temp 98.9 F 06/12/24 09:00 Pulse 100 06/12/24 12:00 Resp 15 06/12/24 12:00 BP 156/114 06/12/24 12:00 Pulse Ox 96 06/12/24 12:00 FiO2 30 06/12/24 09:00 Intake & Output 06/11/24 06/12/24 06/12/24 18:59 06:59 18:59 Intake Total 2150 975 0 Output Total 1600 1200 310 Balance 550 -225 -310 Weight 156.1 kg Intake: Intake, IV Titration 2150 975 0 Amount Lactated Ringers 1,000 ml 150 975 0 @ 75 mls/hr IV .[id number] [facility] Rx#:[id number] Sodium Chloride 0.9% 1, 2000 000 ml @ 999 mls/hr IV . Q1H1M ONE Rx#:[id number] Output: Urine 1600 1200 310 Other: Voiding Method Indwelling Catheter Indwelling Catheter - Exam The patient is quite confused, and agitated. Currently on BiPAP. HEENT examination is grossly unremarkable. Mucous membranes are moist. No oral lesions. Neck supple. Full range of motion. No adenopathy thyromegaly or neck vein distention. Cardiovascular examination reveals an irregular rhythm and rate. S1-S2 normal. No S3 or S4. No discernible murmur noted. Heart sounds are distant. Lungs reveal mostly clear breath sounds. Breath sounds are diminished. No wheezes. No rhonchi. No distinct crackles noted. Abdomen, but obese. Bowel sounds are noted. Extremities reveal 2+ edema, and chronic venous stasis changes. No clubbing or cyanosis. Both legs are wrapped. Skin is without rash or lesion. Neurologic examination is brief but nonfocal. - Labs CBC & Chem 7: 06/12/24 03:21 06/12/24 03:21 Labs: Abnormal Lab Results - Last 24 Hours (Table) 06/11/24 06/11/24 06/12/24 Range/Units 17:02 20:05 03:21 RDW (11.5-15.5) % Plt Count (150-450) k/uL Neutrophils # (1.3-7.7) k/uL Neutrophils # (Manual) (1.3-7.7) k/uL Lymphocytes # (1.0-4.8) k/uL Lymphocytes # (Manual) (1.0-4.8) k/uL Carbon Dioxide 37 H (22-30) mmol/L BUN 66 H (9-20) mg/dL Creatinine 1.56 H (0.66-1.25) mg/dL Glucose 135 H (74-99) mg/dL POC Glucose (mg/dL) 175 H 170 H (70-110) mg/dL Calcium 8.1 L (8.4-10.2) mg/dL 06/12/24 06/12/24 06/12/24 Range/Units 03:21 06:01 11:27 RDW 17.0 H (11.5-15.5) % Plt Count 91 L D (150-450) k/uL Neutrophils # 7.9 H (1.3-7.7) k/uL Neutrophils # (Manual) 7.90 H (1.3-7.7) k/uL Lymphocytes # 0.4 L (1.0-4.8) k/uL Lymphocytes # (Manual) 0.53 L (1.0-4.8) k/uL Carbon Dioxide (22-30) mmol/L BUN (9-20) mg/dL Creatinine (0.66-1.25) mg/dL Glucose (74-99) mg/dL POC Glucose (mg/dL) 182 H 292 H (70-110) mg/dL Calcium (8.4-10.2) mg/dL Assessment and Plan Assessment: Acute on chronic hypoxemic and hypercapnic respiratory failure, secondary to chronic diastolic CHF exacerbation, as well as COPD exacerbation. Small bilateral pleural effusions. Intolerant of BiPAP. Severe COPD, stage IV, with an FEV1 that is 22% of predicted. Obstructive sleep apnea syndrome, noncompliant with noninvasive positive pressure ventilation. Morbid obesity with a BMI of 48.7 kg/m. Stage IIIa chronic kidney disease. Atrial fibrillation. Chronic lower extremity edema. History of hypertension. History of hyperlipidemia. Former tobacco dependence. Severe cellulitis of the right lower extremity. Plan: Plan dated June 08, 2024. The patient could not tolerate the BiPAP yesterday. He states that it caused him to have a nosebleed. Currently, labs, x-rays, and all medications are reviewed. We will continue to follow the patient, make recommendations along the way. He is currently on 4 L of nasal cannula. The patient will continue on diuretics, amiodarone, and Eliquis. The patient also continues on corticosteroids, bronchodilators. Labs, x-rays, and all medications are reviewed. Prognosis is guarded. Plan dated June 09, 2024. The patient appears to be pretty much at baseline. He is on 3 L. Saturations are in the low to mid 90s. He is not receiving any IV fluids. The patient did use BiPAP last night, with settings of 16/6, 35%. The night before he did not use it, because he developed epistaxis. Labs, x-rays, medications are reviewed. We will continue to follow the patient, make recommendations along the way. Prognosis is guarded. Plan dated June 10, 2024. The patient appears to be relatively stable. The patient's labs are reviewed. X-rays and medications are reviewed. The patient is down to 2 L nasal O2. He is not receiving any IV fluids. He did use BiPAP last night, although he cannot tell me how long he used it for. BiPAP settings are 16/6, 35%. Labs, x-rays, and all medications are reviewed. Prognosis is certainly guarded. The patient has had multiple admissions to this hospital in the recent future. Plan dated June 11, 2024. The patient deteriorated on the general medical floor, was transferred down to the intensive care unit for further monitoring and management. The patient is currently on BiPAP. He was pulling his BiPAP device off on the floor, and his saturations were quite low. Currently, he is on 16/6, 35%. He is not receiving any IV fluids. I did add some Ativan 1 mg IV every 6 hours and Haldol 48 mg IV/IM, every 4 hours as needed. His blood gas done on the floor showed a pO2 of 78, pCO2 of 46, pH of 7.41. The patient is overall prognosis remains poor. He is a DO NOT RESUSCITATE patient. Plan dated June 12, 2024. The patient is seen today in room 253. The patient is tolerating BiPAP at this time. He is on BiPAP 16/6, and 35%, to be dropped down to 30%, as he is a CO2 retainer, saturations are perfectly acceptable between 88 and 92%. The patient is not receiving any IV fluids. Labs, x-rays, and medications are reviewed. We will continue to follow the patient, make recommendations along the way. The patient is a DO NOT RESUSCITATE patient. The patient is still critically ill with stay in the intensive care unit. No additional recommendations at this time. Dictation was produced using [employer] dictation software. Please excuse any grammatical, word or spelling errors. Time with Patient: Greater than 30
[2024-06-12 16:33] LABS: Glucose,Whole Blood 283 mg/dL (70-110)
[2024-06-12] MEDS: INSULIN ASPART (NovoLOG) 100 UNIT/ML VIAL SQ ONE (18:00)
[2024-06-12 19:50] LABS: Glucose,Whole Blood 350 mg/dL (70-110)
[2024-06-12] MEDS: INSULIN DETEMIR (LEVEMIR) 100 UNIT/ML SYR SQ SCH (20:09)
--- NOTE | 2024-06-12 20:49 | P.PN ---
Subjective Progress Note Date: 06/12/24 The patient is a 59-year-old male who is currently admitted to the hospital with pulmonary edema. He was transferred to the ICU for labored breathing. Heart rates have not been controlled over the last 24 hours. Metoprolol dose has been increased to 200 mg twice daily, however this is often being held or reduced due to hypotension. Patient interviewed and examined resting in bed. He is currently on BiPAP. Mildly labored breathing. GENERAL: Well-appearing, well-nourished and in no acute distress. NECK: Supple without JVD or thyromegaly. LUNGS: Breath sounds diminished to auscultation bilaterally. Respiration equal and mildly labored. No wheezes, rales or rhonchi. HEART: Irregular rate and rhythm without murmurs, rubs or gallops. S1 and S2 heard. EXTREMITIES: Normal range of motion. Bilateral leg wraps. TELEMETRY: A-fib with heart rates in the low 100s IMPRESSION: Acute on chronic heart failure with preserved EF Persistent atrial fibrillation History of cardioversion, 04/08/2024 Diabetes mellitus type 2 Chronic kidney disease stage III Hypertension Hyperlipidemia End-stage COPD Obstructive sleep apnea Morbid obesity with BMI of 44 PLAN: Avoid holding beta-blockers unless MAP pressures are below 60 Aggressive pulmonary hygiene Further recommendations to be based upon clinical course I am dictating on behalf of Dr Carmine Dickerson's history/physical and assessment/plan. Objective - Vital Signs Vital signs: Vital Signs Temp 98.3 F 06/12/24 16:30 Pulse 105 H 06/12/24 20:23 Resp 18 06/12/24 20:00 BP 111/75 06/12/24 20:00 Pulse Ox 95 06/12/24 20:00 FiO2 30 06/12/24 09:00 Intake & Output 06/12/24 06/12/24 06/13/24 06:59 18:59 06:59 Intake Total 975 800 Output Total 1200 1045 375 Balance -225 -245 -375 Weight 156.1 kg Intake: Intake, IV Titration 975 0 Amount Lactated Ringers 1,000 ml 975 0 @ 75 mls/hr IV .[id number] [facility] Rx#:[id number] Oral 800 Output: Urine 1200 1045 375 Other: Voiding Method Indwelling Catheter Indwelling Catheter # Bowel Movements 1 - Labs CBC & Chem 7: 06/12/24 03:21 06/12/24 03:21 Labs: Abnormal Lab Results - Last 24 Hours (Table) 06/12/24 06/12/24 06/12/24 Range/Units 03:21 03:21 06:01 RDW 17.0 H (11.5-15.5) % Plt Count 91 L D (150-450) k/uL Neutrophils # 7.9 H (1.3-7.7) k/uL Neutrophils # (Manual) 7.90 H (1.3-7.7) k/uL Lymphocytes # 0.4 L (1.0-4.8) k/uL Lymphocytes # (Manual) 0.53 L (1.0-4.8) k/uL Carbon Dioxide 37 H (22-30) mmol/L BUN 66 H (9-20) mg/dL Creatinine 1.56 H (0.66-1.25) mg/dL Glucose 135 H (74-99) mg/dL POC Glucose (mg/dL) 182 H (70-110) mg/dL Calcium 8.1 L (8.4-10.2) mg/dL 06/12/24 06/12/24 06/12/24 Range/Units 11:27 16:32 19:48 RDW (11.5-15.5) % Plt Count (150-450) k/uL Neutrophils # (1.3-7.7) k/uL Neutrophils # (Manual) (1.3-7.7) k/uL Lymphocytes # (1.0-4.8) k/uL Lymphocytes # (Manual) (1.0-4.8) k/uL Carbon Dioxide (22-30) mmol/L BUN (9-20) mg/dL Creatinine (0.66-1.25) mg/dL Glucose (74-99) mg/dL POC Glucose (mg/dL) 292 H 283 H 350 H (70-110) mg/dL Calcium (8.4-10.2) mg/dL
[2024-06-13 04:29] LABS: African American GFR (CKD) 60 (>60 ml/min/1.73 sqM); Anion Gap 1 mmol/L; Blood Urea Nitrogen 60 mg/dL (9-20); Calcium 8.3 mg/dL (8.4-10.2); Carbon Dioxide 33 mmol/L (22-30); Chloride 99 mmol/L (98-107); Glucose 277 mg/dL (74-99); Non-African American GFR(CKD) 52 (>60 ml/min/1.73 sqM); Potassium 3.6 mmol/L (3.5-5.1); Sodium 133 mmol/L (137-145)
[2024-06-13 04:39] LABS: Anisocytosis Slight; Basophils % (A) 0 %; Eosinophils % (A) 0 %; HCT 44.4 % (39.0-53.0); HGB 13.8 gm/dL (13.0-17.5); Hypochromasia Marked; Lymphocytes # (A) 0.2 k/uL (1.0-4.8); Lymphocytes % (A) 2 %; MCV 93.7 fL (80.0-100.0); Mean Platelet Volume 10.5; Monocytes # (A) 0.4 k/uL (0-1.0); Monocytes % (A) 4 %; Neutrophils # (A) 9.7 k/uL (1.3-7.7); Neutrophils % (A) 93 %; RBC 4.74 m/uL (4.30-5.90); RDW 16.8 % (11.5-15.5); WBC 10.4 k/uL (3.8-10.6)
[2024-06-13 04:44] LABS: Platelet Count 73 k/uL (150-450)
[2024-06-13 06:16] LABS: Glucose,Whole Blood 266 mg/dL (70-110)
--- NOTE | 2024-06-13 07:06 | P.PN ---
Subjective Progress Note Date: 06/13/24 Principal diagnosis: Respiratory failure. This is a 59-year-old white male familiar to my service, known history of multiple medical problems including severe end-stage COPD, obstructive sleep apnea syndrome, BiPAP dependent almost, history of chronic hypoxic and chronic hypercapnic respiratory failure, patient is frequently in the hospital with similar presentation each time. This time he was seen in the ER with worsening shortness of breath, and he noted that his O2 saturation has been getting less and less, patient is known to be noncompliant at times with his BiPAP. At any rate patient was seen in the ER, ABG showed relative hypoxia with a pO2 of 63 on 35% FiO2 84 pH of 7.24 patient had positive drug screen for oxycodone and benzodiazepines, patient was placed on BiPAP and I saw him in the ER, recommended that the patient goes on his usual treatment with bronchodilators, BiPAP, and diuretics. Patient himself is not a great historian and he was not a great historian today when I saw him in the ER as he was hypercapnic on BiPAP, lethargic but arousable and did not follow much instructions labs showed normal CBC, abnormal ABG as noted earlier, Bicarb of 39 BUN 55 creatinine 1.81 elevated BNP level, and chest x-ray showing evidence of pulmonary edema Patient was seen today on 06/06/2024, feeling a bit better today, breathing easier, patient is on bronchodilators and is also on BiPAP intermittently, now on 3 L nasal cannula does not seem to be in any distress, remains on diuretics for his congestive heart failure. Improving and he is almost back to baseline. WBC is 4.2 hemoglobin 13.1 electrolytes are normal bicarb is 38 BUN is 49 creatinine 1.58 Seen today on 06/07/2024, patient is doing well today, less shortness of breath less cough, no wheezing, no chest pain, no fever, no chills, no hemoptysis presently on 3 L nasal cannula, and his O2 saturation is 100% hemodynamically stable blood pressure is 116/73. WBC count is 7.5 hemoglobin is 15.2 basic metabolic profile is normal bicarb is 36 BUN 50 creatinine 1.55, steadily improving compared to creatinine of 1.81 on admission Progress note dated June 08, 2024. The patient is seen in room 350. He continues on oxygen at 4 L. No IV fluids. The use of BiPAP, last night, only for short period of time, because apparently caused a nosebleed. His BiPAP settings were seen over 6, 35%. He is sitting on the side of the bed. In no distress. Current labs include sodium 136, potassium 4.7, chlorides 90, CO2 34, BUN 57, and creatinine 1.92. Glucose is 243. Calcium is 8.5. Progress note dated June 09, 2024. 59-year-old male seen today in room 350. The patient remains on nasal O2 at 3 L. He did use a BiPAP for 5 hours last night, with settings of 16/6, 35%. He is not receiving any IV fluids. He is feeling about the same. No new labs today other than a glucose of 210. Progress note dated June 10, 2024. 59-year-old male seen today in room 350. The patient is doing about the same. The nurses asked whether or not he could be discharged, and from our perspecti ve, he can be. He is on BiPAP at 16/6, 35% in the evening. During the daytime, he is on nasal O2, 2 L. He is not receiving any IV fluids. He has no new complaints today. Sodium 136, potassium 4.6, chlorides 95, CO2 39, BUN 67, creatinine 1.83. Glucose is 319. Progress note dated June 11, 2024. 59-year-old male with a history of severe COPD. The patient was being managed up on the third floor, but this morning apparently became very agitated. He was pulling off his BiPAP. Saturations were quite low. The patient was transferred to the intensive care unit, for further monitoring and management. A blood gas was done showing a pO2 of 78, pCO2 of 46, pH of 7.41. BiPAP settings of 16/6, and 35%. Is not receiving any IV fluids. The patient is a DO NOT RESUSCITATE patient. I have added Ativan 1 mg IV every 6 hours, and Haldol 48 mg IM or IV, every 4 hours as needed. The patient is quite agitated. Sodium 135, potassium 4.6, chlorides 96, CO2 31, BUN 73, creatinine 1.61. Glucose is 218. Calcium is 8.8. Chest x-ray shows evidence of cardiomegaly, and some pulmonary vascular congestion. Progress note dated June 12, 2024. 59-year-old male who is again seen in room 253. The patient currently is on BiPAP. BiPAP settings are 16/6, 35%. Will drop the FiO2 down to 30%. He is not receiving any IV fluids. According to the nurse, the patient had a uneventful night last night. Current labs include a white count 8.8, hemoglobin 13.5, hematocrit 43.3, platelet count 91,000. Sodium 138, potassium 3.9, chlorides 98, CO2 37, BUN 66, creatinine 1.56. Glucose is 292. Calcium 8.1. Chest x-ray shows mild bibasilar infiltrates, consistent with atelectasis. Progress note dated June 13, 2024. 59-year-old male seen again in room 253. Yesterday, when I saw him in the morning, he was on BiPAP. Apparently throughout the day he was on 2 L. Overnight, he continues on BiPAP at 16/6, and 30%. He is not receiving any IV fluids. According to the nurses he had a pretty uneventful day yesterday. White count is 10.4, hemoglobin 13.8, hematocrit 44.4, platelet count 73,000. Sodium 133, potassium 3.6, chlorides 99, CO2 33, BUN 60, creatinine 1.44. Glucose is 266. Calcium is 8.3. No chest x-ray today. Objective - Vital Signs Vital signs: Vital Signs Temp 97.9 F 06/13/24 04:00 Pulse 93 06/13/24 05:00 Resp 18 06/13/24 05:00 BP 135/82 06/13/24 05:00 Pulse Ox 94 L 06/13/24 05:00 FiO2 30 06/13/24 04:00 Intake & Output 06/12/24 06/13/24 06/13/24 18:59 06:59 18:59 Intake Total 800 Output Total 1045 1285 Balance -245 -1285 Weight 153.1 kg Intake: Intake, IV Titration 0 Amount Lactated Ringers 1,000 ml 0 @ 75 mls/hr IV .[id number] [facility] Rx#:[id number] Oral 800 Output: Urine 1045 1285 Other: Voiding Method Indwelling Catheter Indwelling Catheter # Bowel Movements 1 - Exam The patient is quite confused, and agitated. Currently on BiPAP. HEENT examination is grossly unremarkable. Mucous membranes are moist. No oral lesions. Neck supple. Full range of motion. No adenopathy thyromegaly or neck vein distention. Cardiovascular examination reveals an irregular rhythm and rate. S1-S2 normal. No S3 or S4. No discernible murmur noted. Heart sounds are distant. Lungs reveal mostly clear breath sounds. Breath sounds are diminished. No wheezes. No rhonchi. No distinct crackles noted. Abdomen, soft but obese. Bowel sounds are noted. Extremities reveal 2+ edema, and chronic venous stasis changes. No clubbing or cyanosis. Both legs are wrapped. Skin is without rash or lesion. Neurologic examination is brief but nonfocal. - Labs CBC & Chem 7: 06/13/24 03:58 06/13/24 03:58 Labs: Abnormal Lab Results - Last 24 Hours (Table) 06/12/24 06/12/24 06/12/24 Range/Units 11:27 16:32 19:48 RDW (11.5-15.5) % Plt Count (150-450) k/uL Neutrophils # (1.3-7.7) k/uL Lymphocytes # (1.0-4.8) k/uL Sodium (137-145) mmol/L Carbon Dioxide (22-30) mmol/L BUN (9-20) mg/dL Creatinine (0.66-1.25) mg/dL Glucose (74-99) mg/dL POC Glucose (mg/dL) 292 H 283 H 350 H (70-110) mg/dL Calcium (8.4-10.2) mg/dL 06/13/24 06/13/24 06/13/24 Range/Units 03:58 03:58 06:15 RDW 16.8 H (11.5-15.5) % Plt Count 73 L (150-450) k/uL Neutrophils # 9.7 H (1.3-7.7) k/uL Lymphocytes # 0.2 L (1.0-4.8) k/uL Sodium 133 L (137-145) mmol/L Carbon Dioxide 33 H (22-30) mmol/L BUN 60 H (9-20) mg/dL Creatinine 1.44 H (0.66-1.25) mg/dL Glucose 277 H (74-99) mg/dL POC Glucose (mg/dL) 266 H (70-110) mg/dL Calcium 8.3 L (8.4-10.2) mg/dL Assessment and Plan Assessment: Acute on chronic hypoxemic and hypercapnic respiratory failure, secondary to chronic diastolic CHF exacerbation, as well as COPD exacerbation. Small bilateral pleural effusions. Intolerant of BiPAP. Severe COPD, stage IV, with an FEV1 that is 22% of predicted. Obstructive sleep apnea syndrome, noncompliant with noninvasive positive pressure ventilation. Morbid obesity with a BMI of 48.7 kg/m. Stage IIIa chronic kidney disease. Atrial fibrillation. Chronic lower extremity edema. History of hypertension. History of hyperlipidemia. Former tobacco dependence. Severe cellulitis of the right lower extremity. Plan: Plan dated June 08, 2024. The patient could not tolerate the BiPAP yesterday. He states that it caused him to have a nosebleed. Currently, labs, x-rays, and all medications are reviewed. We will continue to follow the patient, make recommendations along the way. He is currently on 4 L of nasal cannula. The patient will continue on diuretics, amiodarone, and Eliquis. The patient also continues on corticosteroids, bronchodilators. Labs, x-rays, and all medications are reviewed. Prognosis is guarded. Plan dated June 09, 2024. The patient appears to be pretty much at baseline. He is on 3 L. Saturations are in the low to mid 90s. He is not receiving any IV fluids. The patient did use BiPAP last night, with settings of 16/6, 35%. The night before he did not use it, because he developed epistaxis. Labs, x-rays, medications are reviewed. We will continue to follow the patient, make recommendations along the way. Prognosis is guarded. Plan dated June 10, 2024. The patient appears to be relatively stable. The patient's labs are reviewed. X-rays and medications are reviewed. The patient is down to 2 L nasal O2. He is not receiving any IV fluids. He did use BiPAP last night, although he cannot tell me how long he used it for. BiPAP settings are 16/6, 35%. Labs, x-rays, and all medications are reviewed. Prognosis is certainly guarded. The patient has had multiple admissions to this hospital in the recent future. Plan dated June 11, 2024. The patient deteriorated on the general medical floor, was transferred down to the intensive care unit for further monitoring and management. The patient is currently on BiPAP. He was pulling his BiPAP device off on the floor, and his saturations were quite low. Currently, he is on 16/6, 35%. He is not receiving any IV fluids. I did add some Ativan 1 mg IV every 6 hours and Haldol 48 mg IV/IM, every 4 hours as needed. His blood gas done on the floor showed a pO2 of 78, pCO2 of 46, pH of 7.41. The patient is overall prognosis remains poor. He is a DO NOT RESUSCITATE patient. Plan dated June 12, 2024. The patient is seen today in room 253. The patient is tolerating BiPAP at this time. He is on BiPAP 16/6, and 35%, to be dropped down to 30%, as he is a CO2 retainer, saturations are perfectly acceptable between 88 and 92%. The patient is not receiving any IV fluids. Labs, x-rays, and medications are reviewed. We will continue to follow the patient, make recommendations along the way. The patient is a DO NOT RESUSCITATE patient. The patient is still critically ill with stay in the intensive care unit. No additional recommendations at this time. Dictation was produced using [employer] software. Please excuse any grammatical, word or spelling errors. Plan dated June 13, 2024. The patient is doing well. Yesterday he was on 2 L. He spent the night on BiPAP. Labs, x-rays, and medications are reviewed. Clinically, the patient is doing much better. In my opinion, the patient can be transferred back to the third floor. Labs, x-rays, and all medications are reviewed. The patient's overall prognosis remains guarded. He is a DO NOT RESUSCITATE patient. The patient has very severe stage IV COPD with an FEV1 that is 19% of predicted. His long-term prognosis as mentioned, is extremely poor. Dictation was produced using [employer] software. Please excuse any grammatical, word or spelling errors. Time with Patient: Less than 30
--- NOTE | 2024-06-13 10:10 | P.PN ---
Subjective Progress Note Date: 06/13/24 This is Ruben Darby NP, I'm dictating on behalf of Dr. Dickerson's H&P and A&P. Patient was interviewed and examined. Patient is a pleasant 59-year-old male who presented to the hospital with acute pulmonary edema hypertension and atrial fibrillation with RVR. Patient is feeling better today. He is off his BiPAP. Patient's heart rates are much better controlled on the metoprolol 200 mg twice daily. GENERAL: Well-appearing, well-nourished and in no acute distress. NECK: Supple without JVD or thyromegaly. LUNGS: Breath sounds diminished but clear to auscultation bilaterally. Respirat ion equal and unlabored. No wheezes, rales or rhonchi. HEART: Irregular rate and rhythm without murmurs, rubs or gallops. S1 and S2 heard. EXTREMITIES: Normal range of motion, no edema. No clubbing or cyanosis. Peripheral pulses intact and strong. VITALS: Temp 97.2, pulse 96, respirations 16, blood pressure 136/100, O2 saturation 97% on 3 L TELEMETRY: Atrial fibrillation, heart rate 105 LABS: White count 10.4, hemoglobin 13.8, platelets 73, sodium 133, potassium 3.6, BUN 60, creatinine 1.44 IMPRESSION: 1. Acute on chronic heart failure with preserved EF 2. Persistent atrial fibrillation 3. History of cardioversion, 04/08/2024 4. Diabetes mellitus type 2 5. Chronic kidney disease stage III 6. Hypertension 7. Hyperlipidemia 8. End-stage COPD 9. Obstructive sleep apnea 10. Morbid obesity with BMI 44 PLAN: Continue metoprolol 200 mg twice daily. Continue to give unless MAP pressures are below 60. Continue aggressive pulmonary hygiene. Further recommendations based on patient's clinical course. Objective - Vital Signs Vital signs: Vital Signs Temp 97.2 F L 06/13/24 08:00 Pulse 96 06/13/24 09:47 Resp 16 06/13/24 08:00 BP 136/100 06/13/24 08:00 Pulse Ox 97 06/13/24 09:28 FiO2 30 06/13/24 04:00 Intake & Output 06/12/24 06/13/24 06/13/24 18:59 06:59 18:59 Intake Total 800 660 Output Total 1045 1285 Balance -245 -1285 660 Weight 153.1 kg Intake: Intake, IV Titration 0 Amount Lactated Ringers 1,000 ml 0 @ 75 mls/hr IV .[id number] [facility] Rx#:[id number] Oral 800 660 Output: Urine 1045 1285 Other: Voiding Method Indwelling Catheter Indwelling Catheter Indwelling Catheter # Bowel Movements 1 - Labs CBC & Chem 7: 06/13/24 03:58 06/13/24 03:58 Labs: Abnormal Lab Results - Last 24 Hours (Table) 06/12/24 06/12/24 06/12/24 Range/Units 11:27 16:32 19:48 RDW (11.5-15.5) % Plt Count (150-450) k/uL Neutrophils # (1.3-7.7) k/uL Lymphocytes # (1.0-4.8) k/uL Sodium (137-145) mmol/L Carbon Dioxide (22-30) mmol/L BUN (9-20) mg/dL Creatinine (0.66-1.25) mg/dL Glucose (74-99) mg/dL POC Glucose (mg/dL) 292 H 283 H 350 H (70-110) mg/dL Calcium (8.4-10.2) mg/dL 06/13/24 06/13/24 06/13/24 Range/Units 03:58 03:58 06:15 RDW 16.8 H (11.5-15.5) % Plt Count 73 L (150-450) k/uL Neutrophils # 9.7 H (1.3-7.7) k/uL Lymphocytes # 0.2 L (1.0-4.8) k/uL Sodium 133 L (137-145) mmol/L Carbon Dioxide 33 H (22-30) mmol/L BUN 60 H (9-20) mg/dL Creatinine 1.44 H (0.66-1.25) mg/dL Glucose 277 H (74-99) mg/dL POC Glucose (mg/dL) 266 H (70-110) mg/dL Calcium 8.3 L (8.4-10.2) mg/dL
[2024-06-13] MEDS ORDERED: Potassium Replacement Protocol 1 EACH MISC MISCELLANE PRN (10:20)
[2024-06-13 11:37] LABS: Glucose,Whole Blood 338 mg/dL (70-110)
[2024-06-13] MEDS: POTASSIUM CHLORIDE ER 20 MEQ TAB.ER PO SCH (12:18)
--- NOTE | 2024-06-13 12:46 | P.PN ---
Subjective Progress Note Date: 06/13/24 59-year-old male, history of hypertension, hyperlipidemia, atrial fibrillation, asthma/COPD, sleep apnea, [facility] because he was more lethargic and his pulse ox was [facility] the [facility]. Patient normally is on 2 L of oxygen at home. Patient himself wakes up and has no complaints however he is quick to go back to sleep. Patient has had no history of fever or chills patient denied any chest pain or palpitation. Patient has any abdominal pain patient has nausea vomiting diarrhea Blood work reveals WBC of 5.3, hemoglobin of 13.6 and platelet count of 144, sodium 138, potassium 4.6, BUNs/creatinine of 55/1.8 and blood glucose of 155, magnesium elevated at 2.5, lactic acid level of 1.5, troponin 0.023, ABG reveals pH of 7.24, pCO2 of 84, pO2 of 63; patient is admitted for further treatment for pulmonary edema hypercapnia Chest x-ray completed in ED reveals pulmonary edema 24-hour interval change 06/07/2024, -Patient is seen and evaluated in room at bedside; patient is doing well today, less shortness of breath less cough, no wheezing, no chest pain, no fever, no c hills, no hemoptysis --presently on 3 L nasal cannula, and his O2 saturation is 100% hemodynamically stable blood pressure is 116/73. Review shows WBC count is 7.5 hemoglobin is 15.2 basic metabolic profile is normal bicarb is 36 BUN 50 creatinine 1.55, steadily improving compared to creatinine of 1.81 on admission Continue bronchodilators and methylprednisolone 40 mg IV every 8 hours Continue diuretics, Lasix 40 mg IV push every 8 hours, continue Diamox to 50 mg p.o. twice daily Continue amiodarone and Eliquis 06/08 Patient is awake alert, sitting at the bedside, looks tired. Patient has been using BiPAP machine all night but he could not sleep well because of frequent epistaxis happened last night. Currently epistaxis is stopped. No other bleeding from anywhere else. No headache dizziness or new weakness numbness. No chest pain. He still complaining from dyspnea but improving, leg swelling is better. No other GI/ symptom He is currently on 4 L oxygen via nasal cannula, at home he was using 2 L. I discussed the risk and benefits of anticoagulation including Eliquis and he agrees. Eliquis was resumed and we will going to monitor for bleeding. He is currently on Protonix 40 mg p.o. daily 06/09 Patient still with breathing difficulty. He is not in respiratory distress while at rest but he has still has limited air entry in both sides. He is using BiPAP overnight IV Lasix lowered to twice daily. Creatinine was 1.9. Check creatinine tomorrow Metoprolol dose increased 150 twice daily and to 200 mg in the morning and 200 mg in the evening Patient also remains on IV Solu-Medrol 40 mg Echocardiogram done yesterday showing ejection fraction of 60 to 65%, it was suboptimal study 06/10 Patient overall doing okay His breathing is quiet but looks at baseline. He is currently on 3 L of oxygen which is same home dose of 2-3. Patient confirms to me he has a concentrator and machine at home for his oxygen. Also he confirms to me he has Eliquis at home. Patient adamant not to go to subacute rehab, he says he had bad experience last time. Patient thus will be discharged home with home care. However multiple home agency rejected the patient. We will discussed with the patient and still recommend to go to subacute rehab if he agrees He has superficial wound on the tip of his right second toe. Wound consult is requested Overall doing well. Pulmonary team cleared him for discharge. Stratigraphy Teacher team recommend to monitor him 1 more day. After his IV Lasix switched to oral dose. Will monitor creatinine tomorrow Possible discharge in 24 to 48 hours 06/11 Patient was quite agitated overnight, he was hypoxic. He was transferred to the ICU after given some sedatives and placed back on BiPAP. Currently tolerating diet well and his oxygenation is improved Metoprolol dose was increased to 200 mg daily. Repeat chest x-ray showed cardiomegaly with pulm pulmonary vascular congestion, mild He remains on IV Solu-Medrol 60 mg. Normal Saline 75 mL started 06/12 Patient is still in the ICU, on BiPAP with a setting of 16/6 and FiO2 of 30% He is calm not agitated. Patient did not need extra doses of Haldol or Ativan He denies chest pain or any other new complaint He still adamant not to go To subacute rehab upon discharge despite the risk of noncompliance with BiPAP and other medical management 06/13 : Patient seen and evaluated bedside, patient transferred out of ICU, continue to have lower extremity edema, blood work reviewed platelets 73, serum chemistry sodium 133 potassium 3.6 creatinine 1.44, blood glucose in 300 PHYSICAL EXAMINATION: GENERAL: The patient is alert and oriented x3, ill appearance HEENT: Pupils are round and equally reacting to light. EOMI. No scleral icterus. No conjunctival pallor. Normocephalic, atraumatic. No pharyngeal erythema. No thyromegaly. CARDIOVASCULAR: S1 and S2 present. No murmurs, rubs, or gallops. PULMONARY: Chest is clear to auscultation, no wheezing or crackles. ABDOMEN: Soft, nontender, nondistended, normoactive bowel sounds. No palpable organomegaly. MUSCULOSKELETAL: No joint swelling or deformity. EXTREMITIES: No cyanosis, clubbing, or pedal edema. NEUROLOGICAL: Gross neurological examination did not reveal any focal deficits. SKIN: Bilateral lower extremity edema, wound bandage Objective - Vital Signs Vital signs: Vital Signs Temp 97.9 F 06/13/24 04:00 Pulse 93 06/13/24 05:00 Resp 18 06/13/24 05:00 BP 135/82 06/13/24 05:00 Pulse Ox 94 L 06/13/24 05:00 FiO2 30 06/13/24 04:00 Intake & Output 06/12/24 06/13/24 06/13/24 18:59 06:59 18:59 Intake Total 800 Output Total 1045 1285 Balance -245 -1285 Weight 153.1 kg Intake: Intake, IV Titration 0 Amount Lactated Ringers 1,000 ml 0 @ 75 mls/hr IV .[id number] [facility] Rx#:[id number] Oral 800 Output: Urine 1045 1285 Other: Voiding Method Indwelling Catheter Indwelling Catheter # Bowel Movements 1 - Labs CBC & Chem 7: 06/13/24 03:58 06/13/24 03:58 Labs: Abnormal Lab Results - Last 24 Hours (Table) 06/12/24 06/12/24 06/12/24 Range/Units 11:27 16:32 19:48 RDW (11.5-15.5) % Plt Count (150-450) k/uL Neutrophils # (1.3-7.7) k/uL Lymphocytes # (1.0-4.8) k/uL Sodium (137-145) mmol/L Carbon Dioxide (22-30) mmol/L BUN (9-20) mg/dL Creatinine (0.66-1.25) mg/dL Glucose (74-99) mg/dL POC Glucose (mg/dL) 292 H 283 H 350 H (70-110) mg/dL Calcium (8.4-10.2) mg/dL 06/13/24 06/13/24 06/13/24 Range/Units 03:58 03:58 06:15 RDW 16.8 H (11.5-15.5) % Plt Count 73 L (150-450) k/uL Neutrophils # 9.7 H (1.3-7.7) k/uL Lymphocytes # 0.2 L (1.0-4.8) k/uL Sodium 133 L (137-145) mmol/L Carbon Dioxide 33 H (22-30) mmol/L BUN 60 H (9-20) mg/dL Creatinine 1.44 H (0.66-1.25) mg/dL Glucose 277 H (74-99) mg/dL POC Glucose (mg/dL) 266 H (70-110) mg/dL Calcium 8.3 L (8.4-10.2) mg/dL Assessment and Plan Assessment: * acute on chronic hypoxic hypercapnic respiratory failure * acute exacerbation of congestive heart failure diastolic dysfunction * chronic atrial fibrillation with controlled ventricular response * obstructive sleep apnea * history of hypertension * history of hyperlipidemia * BPH * diabetes mellitus type 2 on insulin * history of noncompliant Plan: Continue patient to the ICU Continue with BiPAP m At night oxygen through the day in regards to CHF exacerbation continue patient on Lasix, continue to monitor intake and output, continue Aldactone in regards to COPD exacerbation continue breathing treatment IV Solu-Medrol pulmonary medicine following in regards to diabetes mellitus continue Accu-Cheks continue insulin correctional and Levemir monitor for hypoglycemia, dose of Lantus increased secondary to hyperglycemia in regards to atrial fibrillation anticoagulation with Eliquis, continue rate control with metoprolol, amiodarone discontinued by cardiology during this hospitalization in regards to BPH continue Flomax DVT prophylaxis: Eliquis GI Prophylaxis: Protonix Time with Patient: Greater than 30
[2024-06-13 16:23] LABS: Glucose,Whole Blood 347 mg/dL (70-110)
[2024-06-13 20:39] LABS: Glucose,Whole Blood 326 mg/dL (70-110)
[2024-06-13] MEDS: INSULIN DETEMIR (LEVEMIR) 100 UNIT/ML SYR SQ SCH (21:10)
[2024-06-13] MEDS ORDERED: methylPREDNISolone SOD SUCCI 125 MG/2 ML VIAL IVP SCH (23:45)
[2024-06-13] MEDS: methylPREDNISolone SOD SUCCI 125 MG/2 ML VIAL IVP SCH (23:46)
[2024-06-14 05:48] LABS: Glucose,Whole Blood 331 mg/dL (70-110)
[2024-06-14 07:00] LABS: Anisocytosis Slight; Basophils % (A) 0 %; Eosinophils % (A) 0 %; HGB 14.2 gm/dL (13.0-17.5); Hypochromasia Moderate; Lymphocytes # (A) 0.2 k/uL (1.0-4.8); Lymphocytes % (A) 2 %; MCHC 30.9 g/dL (31.0-37.0); MCV 93.9 fL (80.0-100.0); Monocytes # (A) 0.4 k/uL (0-1.0); Monocytes % (A) 5 %; Neutrophils # (A) 8.1 k/uL (1.3-7.7); Neutrophils % (A) 93 %; Poikilocytosis Slight; RDW 17.1 % (11.5-15.5); WBC 8.8 k/uL (3.8-10.6)
[2024-06-14 07:16] LABS: African American GFR (CKD) 60 (>60 ml/min/1.73 sqM); Anion Gap 4 mmol/L; Blood Urea Nitrogen 64 mg/dL (9-20); Calcium 8.3 mg/dL (8.4-10.2); Carbon Dioxide 33 mmol/L (22-30); Chloride 97 mmol/L (98-107); Glucose 334 mg/dL (74-99); Non-African American GFR(CKD) 52 (>60 ml/min/1.73 sqM); Sodium 134 mmol/L (137-145)
[2024-06-14 07:34] LABS: Platelet Count 77 k/uL (150-450)
[2024-06-14 11:47] LABS: Glucose,Whole Blood 383 mg/dL (70-110)
--- NOTE | 2024-06-14 12:07 | P.PN ---
Subjective Progress Note Date: 06/14/24 59-year-old male, history of hypertension, hyperlipidemia, atrial fibrillation, asthma/COPD, sleep apnea, who comes from the [place] [facility] because he was more lethargic and his pulse ox was low at the [place] [facility]. Patient normally is on 2 L of oxygen at home. Patient himself wakes up and has no complaints however he is quick to go back to sleep. Patient has had no history of fever or chills patient denied any chest pain or palpitation. Patient has any abdominal pain patient has nausea vomiting diarrhea Blood work reveals WBC of 5.3, hemoglobin of 13.6 and platelet count of 144, sodium 138, potassium 4.6, BUNs/creatinine of 55/1.8 and blood glucose of 155, magnesium elevated at 2.5, lactic acid level of 1.5, troponin 0.023, ABG reveals pH of 7.24, pCO2 of 84, pO2 of 63; patient is admitted for further treatment for pulmonary edema hypercapnia Chest x-ray completed in ED reveals pulmonary edema 24-hour interval change 06/07/2024, -Patient is seen and evaluated in room at bedside; patient is doing well today, less shortness of breath less cough, no wheezing, no chest pain, no fever, no c hills, no hemoptysis --presently on 3 L nasal cannula, and his O2 saturation is 100% hemodynamically stable blood pressure is 116/73. Review shows WBC count is 7.5 hemoglobin is 15.2 basic metabolic profile is normal bicarb is 36 BUN 50 creatinine 1.55, steadily improving compared to creatinine of 1.81 on admission Continue bronchodilators and methylprednisolone 40 mg IV every 8 hours Continue diuretics, Lasix 40 mg IV push every 8 hours, continue Diamox to 50 mg p.o. twice daily Continue amiodarone and Eliquis 06/08 Patient is awake alert, sitting at the bedside, looks tired. Patient has been using BiPAP machine all night but he could not sleep well because of frequent epistaxis happened last night. Currently epistaxis is stopped. No other bleeding from anywhere else. No headache dizziness or new weakness numbness. No chest pain. He still complaining from dyspnea but improving, leg swelling is better. No other GI/ symptom He is currently on 4 L oxygen via nasal cannula, at home he was using 2 L. I discussed the risk and benefits of anticoagulation including Eliquis and he agrees. Eliquis was resumed and we will going to monitor for bleeding. He is currently on Protonix 40 mg p.o. daily 06/09 Patient still with breathing difficulty. He is not in respiratory distress while at rest but he has still has limited air entry in both sides. He is using BiPAP overnight IV Lasix lowered to twice daily. Creatinine was 1.9. Check creatinine tomorrow Metoprolol dose increased 150 twice daily and to 200 mg in the morning and 200 mg in the evening Patient also remains on IV Solu-Medrol 40 mg Echocardiogram done yesterday showing ejection fraction of 60 to 65%, it was suboptimal study 06/10 Patient overall doing okay His breathing is quiet but looks at baseline. He is currently on 3 L of oxygen which is same home dose of 2-3. Patient confirms to me he has a concentrator and machine at home for his oxygen. Also he confirms to me he has Eliquis at home. Patient adamant not to go to subacute rehab, he says he had bad experience last time. Patient thus will be discharged home with home care. However multiple home agency rejected the patient. We will discussed with the patient and still recommend to go to subacute rehab if he agrees He has superficial wound on the tip of his right second toe. Wound consult is requested Overall doing well. Pulmonary team cleared him for discharge. [facility] team recommend to monitor him 1 more day. After his IV Lasix switched to oral dose. Will monitor creatinine tomorrow Possible discharge in 24 to 48 hours 06/11 Patient was quite agitated overnight, he was hypoxic. He was transferred to the ICU after given some sedatives and placed back on BiPAP. Currently tolerating diet well and his oxygenation is improved Metoprolol dose was increased to 200 mg daily. Repeat chest x-ray showed cardiomegaly with pulm pulmonary vascular congestion, mild He remains on IV Solu-Medrol 60 mg. Normal Saline 75 mL started 06/12 Patient is still in the ICU, on BiPAP with a setting of 16/6 and FiO2 of 30% He is calm not agitated. Patient did not need extra doses of Haldol or Ativan He denies chest pain or any other new complaint He still adamant not to go To subacute rehab upon discharge despite the risk of noncompliance with BiPAP and other medical management 06/13 : Patient seen and evaluated bedside, patient transferred out of ICU, continue to have lower extremity edema, blood work reviewed platelets 73, serum chemistry sodium 133 potassium 3.6 creatinine 1.44, blood glucose in 300 06/14- patient seen and evaluated at bedside, patient remains on 2 L of oxygen, noted to have temp of 97.5 early in the morning. CBC reviewed WBC 8.8 platelet count of 77, serum chemistry sodium 134 potassium 4 creatinine 1.44, will increase dose of Lantus to 26 units twice daily, steroid wean down PHYSICAL EXAMINATION: GENERAL: The patient is alert and oriented x3, ill appearance HEENT: Pupils are round and equally reacting to light. EOMI. CARDIOVASCULAR: S1 and S2 present. No murmurs, rubs, or gallops. PULMONARY: Chest is clear to auscultation, no wheezing or crackles. ABDOMEN: Soft, nontender, nondistended, normoactive bowel sounds. No palpable organomegaly. MUSCULOSKELETAL: No joint swelling or deformity. EXTREMITIES: No cyanosis, clubbing, or pedal edema. NEUROLOGICAL: Gross neurological examination did not reveal any focal deficits. SKIN: Bilateral lower extremity edema, wound bandage Objective - Vital Signs Vital signs: Vital Signs Temp 97.5 F L 06/14/24 08:57 Pulse 80 06/14/24 08:58 Resp 18 06/14/24 08:58 BP 115/71 06/14/24 08:57 Pulse Ox 95 06/14/24 08:57 FiO2 30 06/14/24 05:04 Intake & Output 06/13/24 06/14/24 06/14/24 18:59 06:59 18:59 Intake Total 1362 777 Output Total 300 100 Balance 1062 777 -100 Weight 154.2 kg Intake: Oral 1362 777 Output: Urine 300 100 Other: Voiding Method Toilet Toilet Toilet Urinal Urinal Urinal # Voids 1 2 - Labs CBC & Chem 7: 06/14/24 06:33 06/14/24 06:33 Labs: Abnormal Lab Results - Last 24 Hours (Table) 06/13/24 06/13/24 06/13/24 Range/Units 11:35 16:21 20:37 MCHC (31.0-37.0) g/dL RDW (11.5-15.5) % Plt Count (150-450) k/uL Neutrophils # (1.3-7.7) k/uL Lymphocytes # (1.0-4.8) k/uL Sodium (137-145) mmol/L Chloride (98-107) mmol/L Carbon Dioxide (22-30) mmol/L BUN (9-20) mg/dL Creatinine (0.66-1.25) mg/dL Glucose (74-99) mg/dL POC Glucose (mg/dL) 338 H 347 H 326 H (70-110) mg/dL Calcium (8.4-10.2) mg/dL 06/14/24 06/14/24 06/14/24 Range/Units 05:46 06:33 06:33 MCHC 30.9 L (31.0-37.0) g/dL RDW 17.1 H (11.5-15.5) % Plt Count 77 L (150-450) k/uL Neutrophils # 8.1 H (1.3-7.7) k/uL Lymphocytes # 0.2 L (1.0-4.8) k/uL Sodium 134 L (137-145) mmol/L Chloride 97 L (98-107) mmol/L Carbon Dioxide 33 H (22-30) mmol/L BUN 64 H (9-20) mg/dL Creatinine 1.44 H (0.66-1.25) mg/dL Glucose 334 H (74-99) mg/dL POC Glucose (mg/dL) 331 H (70-110) mg/dL Calcium 8.3 L (8.4-10.2) mg/dL Assessment and Plan Assessment: * acute on chronic hypoxic hypercapnic respiratory failure * acute exacerbation of congestive heart failure diastolic dysfunction * chronic atrial fibrillation with controlled ventricular response * obstructive sleep apnea * history of hypertension * history of hyperlipidemia * BPH * diabetes mellitus type 2 on insulin * history of noncompliant Plan: patient was transferred out of ICU to general medical floor encourage use of BiPAP At night oxygen through the day in regards to CHF exacerbation continue patient on Lasix, continue to monitor intake and output, continue Aldactone in regards to COPD exacerbation continue breathing treatment IV Solu-Medrol, wean down from 60mg every 6hr to 40mg twice daily pulmonary medicine following in regards to diabetes mellitus continue Accu-Cheks continue insulin correctional and Levemir monitor for hypoglycemia, dose of Lantus increased secondary to hyperglycemia, 26 units twice daily in regards to atrial fibrillation anticoagulation with Eliquis, continue rate control with metoprolol, amiodarone discontinued by cardiology during this hospitalization in regards to BPH continue Flomax DVT prophylaxis: Eliquis GI Prophylaxis: Protonix Time with Patient: Greater than 30
--- NOTE | 2024-06-14 12:18 | P.PN ---
Subjective Progress Note Date: 06/14/24 This is Ruben Darby NP, I'm dictating on behalf of Dr. Dickerson's H&P and A&P. Patient was interviewed and examined. Patient is a pleasant 59-year-old male who presented to the hospital with acute pulmonary edema, hypertension, and atrial fibrillation with rapid ventricular response. Patient reports that he is doing well today. He is denying chest pain, heart palpitations, dizziness, and lightheadedness. GENERAL: Well-appearing, well-nourished and in no acute distress. NECK: Supple without JVD or thyromegaly. LUNGS: Breath sounds clear to auscultation bilaterally. Respiration equal and unlabored. No wheezes, rales or rhonchi. HEART: Regular rate and rhythm without murmurs, rubs or gallops. S1 and S2 heard. EXTREMITIES: Normal range of motion, no edema. No clubbing or cyanosis. Peripheral pulses intact and strong. VITALS: Temp 97.8, pulse 70, respirations 18, blood pressure 114/71, O2 saturation 95% on 2 L TELEMETRY: Atrial fibrillation LABS: White count 8.8, hemoglobin 14.2, platelets 77, sodium 134, potassium 4, BUN 64, creatinine 1.44, calcium 8.3 IMPRESSION: 1. Acute on chronic heart failure with preserved EF 2. Persistent atrial fibrillation 3. History of cardioversion, 04/08/2024 4. Diabetes mellitus type 2 5. Chronic kidney disease stage III 6. Hypertension 7. Hyperlipidemia 8. End-stage COPD 9. Obstructive sleep apnea 10. Morbid obesity with BMI 44 PLAN: Continue metoprolol 200 mg twice daily. Continue atorvastatin, Eliquis, furosemide, and Aldactone. Further recommendations based on patient's clinical course. Objective - Vital Signs Vital signs: Vital Signs Temp 97.8 F 06/14/24 11:02 Pulse 80 06/14/24 11:45 Resp 18 06/14/24 11:02 BP 114/71 06/14/24 11:02 Pulse Ox 95 06/14/24 11:02 FiO2 30 06/14/24 05:04 Intake & Output 06/13/24 06/14/24 06/14/24 18:59 06:59 18:59 Intake Total 1362 777 360 Output Total 300 525 Balance 1062 777 -165 Weight 154.2 kg Intake: Oral 1362 777 360 Output: Urine 300 525 Other: Voiding Method Toilet Toilet Toilet Urinal Urinal Urinal # Voids 1 2 - Labs CBC & Chem 7: 06/14/24 06:33 06/14/24 06:33 Labs: Abnormal Lab Results - Last 24 Hours (Table) 06/13/24 06/13/24 06/14/24 Range/Units 16:21 20:37 05:46 MCHC (31.0-37.0) g/dL RDW (11.5-15.5) % Plt Count (150-450) k/uL Neutrophils # (1.3-7.7) k/uL Lymphocytes # (1.0-4.8) k/uL Sodium (137-145) mmol/L Chloride (98-107) mmol/L Carbon Dioxide (22-30) mmol/L BUN (9-20) mg/dL Creatinine (0.66-1.25) mg/dL Glucose (74-99) mg/dL POC Glucose (mg/dL) 347 H 326 H 331 H (70-110) mg/dL Calcium (8.4-10.2) mg/dL 06/14/24 06/14/24 06/14/24 Range/Units 06:33 06:33 11:45 MCHC 30.9 L (31.0-37.0) g/dL RDW 17.1 H (11.5-15.5) % Plt Count 77 L (150-450) k/uL Neutrophils # 8.1 H (1.3-7.7) k/uL Lymphocytes # 0.2 L (1.0-4.8) k/uL Sodium 134 L (137-145) mmol/L Chloride 97 L (98-107) mmol/L Carbon Dioxide 33 H (22-30) mmol/L BUN 64 H (9-20) mg/dL Creatinine 1.44 H (0.66-1.25) mg/dL Glucose 334 H (74-99) mg/dL POC Glucose (mg/dL) 383 H (70-110) mg/dL Calcium 8.3 L (8.4-10.2) mg/dL
--- NOTE | 2024-06-14 12:24 | P.PN ---
Subjective Progress Note Date: 06/14/24 Principal diagnosis: Respiratory failure. This is a 59-year-old white male familiar to my service, known history of multiple medical problems including severe end-stage COPD, obstructive sleep apnea syndrome, BiPAP dependent almost, history of chronic hypoxic and chronic hypercapnic respiratory failure, patient is frequently in the hospital with similar presentation each time. This time he was seen in the ER with worsening shortness of breath, and he noted that his O2 saturation has been getting less and less, patient is known to be noncompliant at times with his BiPAP. At any rate patient was seen in the ER, ABG showed relative hypoxia with a pO2 of 63 on 35% FiO2 84 pH of 7.24 patient had positive drug screen for oxycodone and benzodiazepines, patient was placed on BiPAP and I saw him in the ER, recommended that the patient goes on his usual treatment with bronchodilators, BiPAP, and diuretics. Patient himself is not a great historian and he was not a great historian today when I saw him in the ER as he was hypercapnic on BiPAP, lethargic but arousable and did not follow much instructions labs showed normal CBC, abnormal ABG as noted earlier, Bicarb of 39 BUN 55 creatinine 1.81 elevated BNP level, and chest x-ray showing evidence of pulmonary edema Patient was seen today on 06/06/2024, feeling a bit better today, breathing easier, patient is on bronchodilators and is also on BiPAP intermittently, now on 3 L nasal cannula does not seem to be in any distress, remains on diuretics for his congestive heart failure. Improving and he is almost back to baseline. WBC is 4.2 hemoglobin 13.1 electrolytes are normal bicarb is 38 BUN is 49 creatinine 1.58 Seen today on 06/07/2024, patient is doing well today, less shortness of breath less cough, no wheezing, no chest pain, no fever, no chills, no hemoptysis presently on 3 L nasal cannula, and his O2 saturation is 100% hemodynamically stable blood pressure is 116/73. WBC count is 7.5 hemoglobin is 15.2 basic metabolic profile is normal bicarb is 36 BUN 50 creatinine 1.55, steadily improving compared to creatinine of 1.81 on admission Progress note dated June 08, 2024. The patient is seen in room 350. He continues on oxygen at 4 L. No IV fluids. The use of BiPAP, last night, only for short period of time, because apparently caused a nosebleed. His BiPAP settings were seen over 6, 35%. He is sitting on the side of the bed. In no distress. Current labs include sodium 136, potassium 4.7, chlorides 90, CO2 34, BUN 57, and creatinine 1.92. Glucose is 243. Calcium is 8.5. Progress note dated June 09, 2024. 59-year-old male seen today in room 350. The patient remains on nasal O2 at 3 L. He did use a BiPAP for 5 hours last night, with settings of 16/6, 35%. He is not receiving any IV fluids. He is feeling about the same. No new labs today other than a glucose of 210. Progress note dated June 10, 2024. 59-year-old male seen today in room 350. The patient is doing about the same. The nurses asked whether or not he could be discharged, and from our perspecti ve, he can be. He is on BiPAP at 16/6, 35% in the evening. During the daytime, he is on nasal O2, 2 L. He is not receiving any IV fluids. He has no new complaints today. Sodium 136, potassium 4.6, chlorides 95, CO2 39, BUN 67, creatinine 1.83. Glucose is 319. Progress note dated June 11, 2024. 59-year-old male with a history of severe COPD. The patient was being managed up on the third floor, but this morning apparently became very agitated. He was pulling off his BiPAP. Saturations were quite low. The patient was transferred to the intensive care unit, for further monitoring and management. A blood gas was done showing a pO2 of 78, pCO2 of 46, pH of 7.41. BiPAP settings of 16/6, and 35%. Is not receiving any IV fluids. The patient is a DO NOT RESUSCITATE patient. I have added Ativan 1 mg IV every 6 hours, and Haldol 48 mg IM or IV, every 4 hours as needed. The patient is quite agitated. Sodium 135, potassium 4.6, chlorides 96, CO2 31, BUN 73, creatinine 1.61. Glucose is 218. Calcium is 8.8. Chest x-ray shows evidence of cardiomegaly, and some pulmonary vascular congestion. Progress note dated June 12, 2024. 59-year-old male who is again seen in room 253. The patient currently is on BiPAP. BiPAP settings are 16/6, 35%. Will drop the FiO2 down to 30%. He is not receiving any IV fluids. According to the nurse, the patient had a uneventful night last night. Current labs include a white count 8.8, hemoglobin 13.5, hematocrit 43.3, platelet count 91,000. Sodium 138, potassium 3.9, chlorides 98, CO2 37, BUN 66, creatinine 1.56. Glucose is 292. Calcium 8.1. Chest x-ray shows mild bibasilar infiltrates, consistent with atelectasis. Progress note dated June 13, 2024. 59-year-old male seen again in room 253. Yesterday, when I saw him in the morning, he was on BiPAP. Apparently throughout the day he was on 2 L. Overnight, he continues on BiPAP at 16/6, and 30%. He is not receiving any IV fluids. According to the nurses he had a pretty uneventful day yesterday. White count is 10.4, hemoglobin 13.8, hematocrit 44.4, platelet count 73,000. Sodium 133, potassium 3.6, chlorides 99, CO2 33, BUN 60, creatinine 1.44. Glucose is 266. Calcium is 8.3. No chest x-ray today. Progress note dated June 14, 2024. 59-year-old obese male, seen in room 385. The patient was in the intensive care unit, for a number of days, for worsening respiratory failure. I believe that this patient occasionally will either not wear his BiPAP device, or he takes it off, while he is sleeping, becomes more hypoxemic and hypercapnic, which creates agitation, and confusion. Currently, he is on 2 L of nasal oxygen. While on BiPAP, his settings are 16/6, 30%. The patient is not receiving any IV fluids. He is resting comfortably in bed. He has severe COPD with an FEV1 that is less than 20% of predicted. Current labs include a white count 8.8, hemoglobin 14.2, hematocrit 46, and a platelet count of 77,000. Sodium 134, potassium 4, chloride 97, CO2 33, BUN 64, creatinine 1.44. Glucose is 383. Calcium is 8.3. Objective - Vital Signs Vital signs: Vital Signs Temp 97.8 F 06/14/24 11:02 Pulse 80 06/14/24 11:45 Resp 18 06/14/24 11:02 BP 114/71 06/14/24 11:02 Pulse Ox 95 06/14/24 11:02 FiO2 30 06/14/24 05:04 Intake & Output 06/13/24 06/14/24 06/14/24 18:59 06:59 18:59 Intake Total 1362 777 360 Output Total 300 525 Balance 1062 777 -165 Weight 154.2 kg Intake: Oral 1362 777 360 Output: Urine 300 525 Other: Voiding Method Toilet Toilet Toilet Urinal Urinal Urinal # Voids 1 2 - Exam The patient is quite confused, and agitated. Currently on nasal O2 at 2 L. HEENT examination is grossly unremarkable. Mucous membranes are moist. No oral lesions. Neck supple. Full range of motion. No adenopathy thyromegaly or neck vein d istention. Cardiovascular examination reveals an irregular rhythm and rate. S1-S2 normal. No S3 or S4. No discernible murmur noted. Heart sounds are distant. Lungs reveal mostly clear breath sounds. Breath sounds are diminished. No wheezes. No rhonchi. No distinct crackles noted. Abdomen, soft but obese. Bowel sounds are noted. Extremities reveal 2+ edema, and chronic venous stasis changes. No clubbing or cyanosis. Both legs are wrapped. Skin is without rash or lesion. Neurologic examination is brief but nonfocal. - Labs CBC & Chem 7: 06/14/24 06:33 06/14/24 06:33 Labs: Abnormal Lab Results - Last 24 Hours (Table) 06/13/24 06/13/24 06/14/24 Range/Units 16:21 20:37 05:46 MCHC (31.0-37.0) g/dL RDW (11.5-15.5) % Plt Count (150-450) k/uL Neutrophils # (1.3-7.7) k/uL Lymphocytes # (1.0-4.8) k/uL Sodium (137-145) mmol/L Chloride (98-107) mmol/L Carbon Dioxide (22-30) mmol/L BUN (9-20) mg/dL Creatinine (0.66-1.25) mg/dL Glucose (74-99) mg/dL POC Glucose (mg/dL) 347 H 326 H 331 H (70-110) mg/dL Calcium (8.4-10.2) mg/dL 06/14/24 06/14/24 06/14/24 Range/Units 06:33 06:33 11:45 MCHC 30.9 L (31.0-37.0) g/dL RDW 17.1 H (11.5-15.5) % Plt Count 77 L (150-450) k/uL Neutrophils # 8.1 H (1.3-7.7) k/uL Lymphocytes # 0.2 L (1.0-4.8) k/uL Sodium 134 L (137-145) mmol/L Chloride 97 L (98-107) mmol/L Carbon Dioxide 33 H (22-30) mmol/L BUN 64 H (9-20) mg/dL Creatinine 1.44 H (0.66-1.25) mg/dL Glucose 334 H (74-99) mg/dL POC Glucose (mg/dL) 383 H (70-110) mg/dL Calcium 8.3 L (8.4-10.2) mg/dL Assessment and Plan Assessment: Acute on chronic hypoxemic and hypercapnic respiratory failure, secondary to chronic diastolic CHF exacerbation, as well as COPD exacerbation. Small bilateral pleural effusions. Intolerant of BiPAP. Severe COPD, stage IV, with an FEV1 that is 22% of predicted. Obstructive sleep apnea syndrome, noncompliant with noninvasive positive pressure ventilation. Morbid obesity with a BMI of 48.7 kg/m. Stage IIIa chronic kidney disease. Atrial fibrillation. Chronic lower extremity edema. History of hypertension. History of hyperlipidemia. Former tobacco dependence. Severe cellulitis of the right lower extremity. Plan: Plan dated June 08, 2024. The patient could not tolerate the BiPAP yesterday. He states that it caused him to have a nosebleed. Currently, labs, x-rays, and all medications are reviewed. We will continue to follow the patient, make recommendations along the way. He is currently on 4 L of nasal cannula. The patient will continue on diuretics, amiodarone, and Eliquis. The patient also continues on corticosteroids, bronchodilators. Labs, x-rays, and all medications are reviewed. Prognosis is guarded. Plan dated June 09, 2024. The patient appears to be pretty much at baseline. He is on 3 L. Saturations are in the low to mid 90s. He is not receiving any IV fluids. The patient did use BiPAP last night, with settings of 16/6, 35%. The night before he did not use it, because he developed epistaxis. Labs, x-rays, medications are reviewed. We will continue to follow the patient, make recommendations along the way. Prognosis is guarded. Plan dated June 10, 2024. The patient appears to be relatively stable. The patient's labs are reviewed. X-rays and medications are reviewed. The patient is down to 2 L nasal O2. He is not receiving any IV fluids. He did use BiPAP last night, although he cannot tell me how long he used it for. BiPAP settings are 16/6, 35%. Labs, x-rays, and all medications are reviewed. Prognosis is certainly guarded. The patient has had multiple admissions to this hospital in the recent future. Plan dated June 11, 2024. The patient deteriorated on the general medical floor, [facility] for further monitoring and management. The patient is currently on BiPAP. He was pulling his BiPAP device off on the floor, and his saturations were quite low. Currently, he is on 16/6, 35%. He is not receiving any IV fluids. I did add some Ativan 1 mg IV every 6 hours and Haldol 48 mg IV/IM, every 4 hours as needed. His blood gas done on the floor showed a pO2 of 78, pCO2 of 46, pH of 7.41. The patient is overall prognosis remains poor. He is a DO NOT RESUSCITATE patient. Plan dated June 12, 2024. The patient is seen today in room 253. The patient is tolerating BiPAP at this time. He is on BiPAP 16/6, and 35%, to be dropped down to 30%, as he is a CO2 retainer, saturations are perfectly acceptable between 88 and 92%. The patient is not receiving any IV fluids. Labs, x-rays, and medications are reviewed. We will continue to follow the patient, make recommendations along the way. The patient is a DO NOT RESUSCITATE patient. The patient is still critically ill with stay in the intensive care unit. No additional recommendations at this time. Dictation was produced using [employer] dictation software. Please excuse any grammatical, word or spelling errors. Plan dated June 13, 2024. The patient is doing well. Yesterday he was on 2 L. He spent the night on BiPAP. Labs, x-rays, and medications are reviewed. Clinically, the patient is doing much better. In my opinion, the patient can be transferred back to the third floor. Labs, x-rays, and all medications are reviewed. The patient's overall prognosis remains guarded. He is a DO NOT RESUSCITATE patient. The patient has very severe stage IV COPD with an FEV1 that is 19% of predicted. His long-term prognosis as mentioned, is extremely poor. Dictation was produced using [employer] software. Please excuse any grammatical, word or spelling errors. Plan dated June 14, 2024. The patient is seen today in room 385. The patient is doing well. He was on BiPAP for a number of days, secondary to worsening hypoxemic respiratory failure and worsening hypercapnia, with agitation, and confusion. That is all seem to improve. Currently he is on 2 L. When he does use BiPAP at nighttime, his settings are 16/6, 30%. The patient is not receiving any IV fluids. Labs, x- rays, and all medications are reviewed. Time with Patient: Less than 30
[2024-06-14 16:46] LABS: Glucose,Whole Blood 333 mg/dL (70-110)
[2024-06-14 21:00] LABS: Glucose,Whole Blood 481 mg/dL (70-110)
[2024-06-14] MEDS: INSULIN DETEMIR (LEVEMIR) 100 UNIT/ML SYR SQ SCH (22:04)
[2024-06-14] MEDS: INSULIN ASPART (NovoLOG) 100 UNIT/ML VIAL SQ ONE (22:04)
[2024-06-15] MEDS: methylPREDNISolone SOD SUCCI 40 MG/ML 1 ML VIAL IVP SCH (00:10)
[2024-06-15] MEDS: INSULIN DETEMIR (LEVEMIR) 100 UNIT/ML SYR SQ SCH (01:49)
[2024-06-15 06:16] LABS: Glucose,Whole Blood 346 mg/dL (70-110)
[2024-06-15 07:35] LABS: Anisocytosis Slight; HCT 47.8 % (39.0-53.0); HGB 15.2 gm/dL (13.0-17.5); Hypochromasia Moderate; MCH 29.3 pg (25.0-35.0); MCHC 31.9 g/dL (31.0-37.0); MCV 91.9 fL (80.0-100.0); Mean Platelet Volume 11.6; Poikilocytosis Slight; WBC 12.3 k/uL (3.8-10.6)
[2024-06-15 07:39] LABS: African American GFR (CKD) 64 (>60 ml/min/1.73 sqM); Anion Gap 6 mmol/L; Blood Urea Nitrogen 65 mg/dL (9-20); Calcium 8.5 mg/dL (8.4-10.2); Carbon Dioxide 30 mmol/L (22-30); Chloride 97 mmol/L (98-107); Glucose 317 mg/dL (74-99); Non-African American GFR(CKD) 55 (>60 ml/min/1.73 sqM); Platelet Count 96 k/uL (150-450); Potassium 4.7 mmol/L (3.5-5.1); Sodium 133 mmol/L (137-145)
--- NOTE | 2024-06-15 14:44 | P.PN ---
Subjective Progress Note Date: 06/15/24 Patient is a pleasant 59-year-old male who presented to the hospital with acute pulmonary edema, hypertension, and atrial fibrillation with rapid ventricular response. Patient reports that he is doing well today. He is denying chest pain, heart palpitations, dizziness, and lightheadedness. VITALS: Temp 97.8, pulse 70, respirations 18, blood pressure 114/71, O2 saturation 95% on 2 L TELEMETRY: Atrial fibrillation LABS: White count 8.8, hemoglobin 14.2, platelets 77, sodium 134, potassium 4, BUN 64, creatinine 1.44, calcium 8.3 06/15/2024 Patient seen and examined. Patient states that his breathing is at his baseline. He is on oral Lasix but continues to be on IV Solu-Medrol. Pulse ox 97% on 2 L nasal cannula, blood pressure 123/72, pulse 90, afebrile. Repeat blood work reveals WBC 12.3, hemoglobin 15.2, platelet count 96. BUN 65 creatinine 1.37. GENERAL: Well-appearing, well-nourished and in no acute distress. NECK: Supple without JVD or thyromegaly. LUNGS: Breath sounds clear to auscultation bilaterally. Respiration equal and unlabored. No wheezes, rales or rhonchi. HEART: Regular rate and rhythm without murmurs, rubs or gallops. S1 and S2 heard. EXTREMITIES: Normal range of motion, no edema. No clubbing or cyanosis. Peripheral pulses intact and strong. IMPRESSION: 1. Acute on chronic heart failure with preserved EF 2. Persistent atrial fibrillation 3. History of cardioversion, 04/08/2024 4. Diabetes mellitus type 2 5. Chronic kidney disease stage III 6. Hypertension 7. Hyperlipidemia 8. End-stage COPD 9. Obstructive sleep apnea 10. Morbid obesity with BMI 44 PLAN: Continue metoprolol 200 mg twice daily. Continue atorvastatin, Eliquis, furosemide, and Aldactone. Continue oral Lasix 40 mg twice daily No further cardiac workup at this time. At time of discharge, patient may follow-up in the office in 1 [address] Dickerson. Cardiology will sign off this case and follow on an as-needed basis. Please reconsult for any new concerns. Nurse practitioner note has been reviewed, I agree with documented findings and plan of care. Patient was seen and examined. Objective - Vital Signs Vital signs: Vital Signs Temp 97.1 F L 06/15/24 09:35 Pulse 88 06/15/24 11:42 Resp 16 06/15/24 09:35 BP 123/72 06/15/24 09:35 Pulse Ox 97 06/15/24 09:35 FiO2 30 06/14/24 15:09 Intake & Output 06/14/24 06/15/24 06/15/24 18:59 06:59 18:59 Intake Total 660 10 236 Output Total 925 1350 425 Balance -265 -1340 -189 Weight 154 kg Intake: IV 10 Invasive Line 5 10 Oral 660 236 Output: Urine 925 1350 425 Other: Voiding Method Toilet Toilet Toilet Urinal Urinal Urinal # Voids 2 2 - Labs CBC & Chem 7: 06/15/24 06:09 06/15/24 06:09 Labs: Abnormal Lab Results - Last 24 Hours (Table) 06/14/24 06/14/24 06/15/24 Range/Units 16:45 19:59 06:09 WBC 12.3 H (3.8-10.6) k/uL RDW 17.0 H (11.5-15.5) % Plt Count 96 L (150-450) k/uL Sodium (137-145) mmol/L Chloride (98-107) mmol/L BUN (9-20) mg/dL Creatinine (0.66-1.25) mg/dL Glucose (74-99) mg/dL POC Glucose (mg/dL) 333 H 481 H (70-110) mg/dL 06/15/24 06/15/24 Range/Units 06:09 06:14 WBC (3.8-10.6) k/uL RDW (11.5-15.5) % Plt Count (150-450) k/uL Sodium 133 L (137-145) mmol/L Chloride 97 L (98-107) mmol/L BUN 65 H (9-20) mg/dL Creatinine 1.37 H (0.66-1.25) mg/dL Glucose 317 H (74-99) mg/dL POC Glucose (mg/dL) 346 H (70-110) mg/dL
--- NOTE | 2024-06-15 15:26 | P.PN ---
Subjective Progress Note Date: 06/15/24 This is a 59-year-old white male familiar to my service, known history of multiple medical problems including severe end-stage COPD, obstructive sleep apnea syndrome, BiPAP dependent almost, history of chronic hypoxic and chronic hypercapnic respiratory failure, patient is frequently in the hospital with similar presentation each time. This time he was seen in the ER with worsening shortness of breath, and he noted that his O2 saturation has been getting less and less, patient is known to be noncompliant at times with his BiPAP. At any rate patient was seen in the ER, ABG showed relative hypoxia with a pO2 of 63 on 35% FiO2 84 pH of 7.24 patient had positive drug screen for oxycodone and benzod iazepines, patient was placed on BiPAP and I saw him in the ER, recommended that the patient goes on his usual treatment with bronchodilators, BiPAP, and diuretics. Patient himself is not a great historian and he was not a great historian today when I saw him in the ER as he was hypercapnic on BiPAP, lethargic but arousable and did not follow much instructions labs showed normal CBC, abnormal ABG as noted earlier, Bicarb of 39 BUN 55 creatinine 1.81 elevated BNP level, and chest x-ray showing evidence of pulmonary edema Patient was seen today on 06/06/2024, feeling a bit better today, breathing easier, patient is on bronchodilators and is also on BiPAP intermittently, now on 3 L nasal cannula does not seem to be in any distress, remains on diuretics for his congestive heart failure. Improving and he is almost back to baseline. WBC is 4.2 hemoglobin 13.1 electrolytes are normal bicarb is 38 BUN is 49 creatinine 1.58 Seen today on 06/07/2024, patient is doing well today, less shortness of breath less cough, no wheezing, no chest pain, no fever, no chills, no hemoptysis presently on 3 L nasal cannula, and his O2 saturation is 100% hemodynamically stable blood pressure is 116/73. WBC count is 7.5 hemoglobin is 15.2 basic metabolic profile is normal bicarb is 36 BUN 50 creatinine 1.55, steadily improving compared to creatinine of 1.81 on admission Progress note dated June 08, 2024. The patient is seen in room 350. He continues on oxygen at 4 L. No IV fluids. The use of BiPAP, last night, only for short period of time, because apparently caused a nosebleed. His BiPAP settings were seen over 6, 35%. He is sitting on the side of the bed. In no distress. Current labs include sodium 136, potassium 4.7, chlorides 90, CO2 34, BUN 57, and creatinine 1.92. Glucose is 243. Calcium is 8.5. Progress note dated June 09, 2024. 59-year-old male seen today in room 350. The patient remains on nasal O2 at 3 L. He did use a BiPAP for 5 hours last night, with settings of 16/6, 35%. He is not receiving any IV fluids. He is feeling about the same. No new labs tod ay other than a glucose of 210. Progress note dated June 10, 2024. 59-year-old male seen today in room 350. The patient is doing about the same. The nurses asked whether or not he could be discharged, and from our perspective, he can be. He is on BiPAP at 16/6, 35% in the evening. During the daytime, he is on nasal O2, 2 L. He is not receiving any IV fluids. He has no new complaints today. Sodium 136, potassium 4.6, chlorides 95, CO2 39, BUN 67, creatinine 1.83. Glucose is 319. Progress note dated June 11, 2024. 59-year-old male with a history of severe COPD. The patient was being managed up on the third floor, but this morning apparently became very agitated. He was pulling off his BiPAP. Saturations were quite low. The patient was transferred to the intensive care unit, for further monitoring and management. A blood gas was done showing a pO2 of 78, pCO2 of 46, pH of 7.41. BiPAP settings of 16/6, and 35%. Is not receiving any IV fluids. The patient is a DO NOT RESUSCITATE patient. I have added Ativan 1 mg IV every 6 hours, and Haldol 48 mg IM or IV, every 4 hours as needed. The patient is quite agitated. Sodium 135, potassium 4.6, chlorides 96, CO2 31, BUN 73, creatinine 1.61. Glucose is 218. Calcium is 8.8. Chest x-ray shows evidence of cardiomegaly, and some pulmonary vascular congestion. Progress note dated June 12, 2024. 59-year-old male who is again seen in room 253. The patient currently is on BiPAP. BiPAP settings are 16/6, 35%. Will drop the FiO2 down to 30%. He is not receiving any IV fluids. According to the nurse, the patient had a uneventful night last night. Current labs include a white count 8.8, hemoglobin 13.5, hematocrit 43.3, platelet count 91,000. Sodium 138, potassium 3.9, chlorides 98, CO2 37, BUN 66, creatinine 1.56. Glucose is 292. Calcium 8.1. Chest x-ray shows mild bibasilar infiltrates, consistent with atelectasis. Progress note dated June 13, 2024. 59-year-old male seen again in room 253. Yesterday, when I saw him in the morning, he was on BiPAP. Apparently throughout the day he was on 2 L. Overnight, he continues on BiPAP at 16/6, and 30%. He is not receiving any IV fluids. According to the nurses he had a pretty uneventful day yesterday. White count is 10.4, hemoglobin 13.8, hematocrit 44.4, platelet count 73,000. Sodium 133, potassium 3.6, chlorides 99, CO2 33, BUN 60, creatinine 1.44. Glucose is 266. Calcium is 8.3. No chest x-ray today. Progress note dated June 14, 2024. 59-year-old obese male, seen in room 385. The patient was in the intensive care unit, for a number of days, for worsening respiratory failure. I believe that this patient occasionally will either not wear his BiPAP device, or he takes it off, while he is sleeping, becomes more hypoxemic and hypercapnic, which creates agitation, and confusion. Currently, he is on 2 L of nasal oxygen. While on BiPAP, his settings are 16/6, 30%. The patient is not receiving any IV fluids. He is resting comfortably in bed. He has severe COPD with an FEV1 that is less than 20% of predicted. Current labs include a white count 8.8, hemoglobin 14.2, hematocrit 46, and a platelet count of 77,000. Sodium 134, potassium 4, chloride 97, CO2 33, BUN 64, creatinine 1.44. Glucose is 383. Calcium is 8.3. On 06/15/2024, the patient is doing well. No specific complaints. He is on 2 L of oxygen by nasal cannula with a pulse ox of 99 to 100%. No significant cough sputum production chest tightness or wheezing. Continues to have some edema lower extremities bilaterally. Remains on DuoNeb the regiment [id number]. Remains on IV Solu-Medrol 40 mg every 12 hours regarding history of the exacerbation the patient is also on a combination of Perforomist and Pulmicort updrafts twice a day. He is on Aldactone 25 mg p.o. daily. He is also on Lasix 40 mg p.o. twice daily and Diamox to 50 mg p.o. twice a day. Remains on metoprolol 200 mg p.o. daily in the morning and 200 mg at bedtime. Rest of the medications remain unchanged. White cell count of 12.3 with a hemoglobin 15.2 and a platelet count of 96. BUN 65 with a creatinine of 1.37 and sodium levels at 133. Glucose levels are slightly elevated and the patient is on Levemir insulin 35 units twice a day and NovoLog 5 units with meal and sliding scale coverage. The patient also has a BiPAP at the bedside which she is using overnight at a pressure of 16/6 with a FiO2 of 30%. The patient is currently on 3 L of oxygen by nasal cannula. Objective - Vital Signs Vital signs: Vital Signs Temp 97.5 F L 06/15/24 03:43 Pulse 82 06/15/24 08:38 Resp 18 06/15/24 03:43 BP 121/77 06/15/24 03:43 Pulse Ox 94 L 06/15/24 03:43 FiO2 30 06/14/24 15:09 Intake & Output 06/14/24 06/15/24 06/15/24 18:59 06:59 18:59 Intake Total 660 10 236 Output Total 925 1350 Balance -265 -1340 236 Weight 154 kg Intake: IV 10 Invasive Line 5 10 Oral 660 236 Output: Urine 925 1350 Other: Voiding Method Toilet Toilet Urinal Urinal # Voids 2 2 - Exam The patient is quite confused, and agitated. Currently on nasal O2 at 3 L. HEENT examination is grossly unremarkable. Mucous membranes are moist. No oral lesions. Neck supple. Full range of motion. No adenopathy thyromegaly or neck vein distention. Cardiovascular examination reveals an irregular rhythm and rate. S1-S2 normal. No S3 or S4. No discernible murmur noted. Heart sounds are distant. Lungs reveal mostly clear breath sounds. Breath sounds are diminished. No wheezes. No rhonchi. No distinct crackles noted. Abdomen, soft but obese. Bowel sounds are noted. Extremities reveal 2+ edema, and chronic venous stasis changes. No clubbing or cyanosis. Both legs are wrapped. Skin is without rash or lesion. Neurologic examination is brief but nonfocal. - Labs CBC & Chem 7: 06/15/24 06:09 06/15/24 06:09 Labs: Abnormal Lab Results - Last 24 Hours (Table) 06/14/24 06/14/24 06/14/24 Range/Units 11:45 16:45 19:59 WBC (3.8-10.6) k/uL RDW (11.5-15.5) % Plt Count (150-450) k/uL Sodium (137-145) mmol/L Chloride (98-107) mmol/L BUN (9-20) mg/dL Creatinine (0.66-1.25) mg/dL Glucose (74-99) mg/dL POC Glucose (mg/dL) 383 H 333 H 481 H (70-110) mg/dL 06/15/24 06/15/24 06/15/24 Range/Units 06:09 06:09 06:14 WBC 12.3 H (3.8-10.6) k/uL RDW 17.0 H (11.5-15.5) % Plt Count 96 L (150-450) k/uL Sodium 133 L (137-145) mmol/L Chloride 97 L (98-107) mmol/L BUN 65 H (9-20) mg/dL Creatinine 1.37 H (0.66-1.25) mg/dL Glucose 317 H (74-99) mg/dL POC Glucose (mg/dL) 346 H (70-110) mg/dL Assessment and Plan Plan: Acute on chronic hypoxemic and hypercapnic respiratory failure, secondary to chronic diastolic CHF exacerbation, as well as COPD exacerbation. Patient is currently on 3 L of oxygen by nasal cannula. No significant respiratory distress. The patient is currently off the BiPAP. Small bilateral pleural effusions. Severe COPD, stage IV, with an FEV1 that is 22% of predicted. Obstructive sleep apnea syndrome, noncompliant with noninvasive positive pressure ventilation. Morbid obesity with a BMI of 48.7 kg/m. Stage IIIa chronic kidney disease. Atrial fibrillation. Chronic lower extremity edema. History of hypertension. History of hyperlipidemia. Former tobacco dependence. Severe cellulitis of the right lower extremity, stable, recovered Plan: Patient currently off the BiPAP and on 3 days of oxygen by nasal cannula Continue Lasix 40 mg p.o. twice a day Continue Aldactone 25 mg p.o. daily Continue Diamox to 50 mg p.o. twice a day Continue DuoNeb nebulized treatments [id number] in addition to a combination of Perforomist and Pulmicort updrafts Discontinued IV Solu-Medrol and start the patient on prednisone burst taper Continue the combination of metoprolol and anticoagulation with Eliquis regarding his atrial fibrillation Continue Levemir insulin 35 units twice daily along with 5 units of NovoLog with meals and sliding scale coverage Will continue to follow
[2024-06-15 16:11] LABS: Glucose,Whole Blood 351 mg/dL (70-110)
[2024-06-15 20:01] LABS: Glucose,Whole Blood 399 mg/dL (70-110)
[2024-06-15] MEDS: INSULIN DETEMIR (LEVEMIR) 100 UNIT/ML SYR SQ ONE (23:30)
[2024-06-16 06:19] LABS: Glucose,Whole Blood 162 mg/dL (70-110)
[2024-06-16 07:41] LABS: Anisocytosis Slight; Basophils # (A) 0.1 k/uL (0-0.2); Basophils % (A) 1 %; Eosinophils % (A) 0 %; HCT 48.7 % (39.0-53.0); Hypochromasia Marked; Lymphocytes # (A) 0.3 k/uL (1.0-4.8); Lymphocytes % (A) 2 %; MCH 28.4 pg (25.0-35.0); MCHC 30.7 g/dL (31.0-37.0); MCV 92.4 fL (80.0-100.0); Mean Platelet Volume 9.7; Monocytes # (A) 0.7 k/uL (0-1.0); Monocytes % (A) 6 %; Neutrophils # (A) 12.1 k/uL (1.3-7.7); Neutrophils % (A) 91 %; Platelet Count 123 k/uL (150-450); RBC 5.27 m/uL (4.30-5.90); RDW 16.7 % (11.5-15.5); WBC 13.2 k/uL (3.8-10.6)
[2024-06-16 08:01] LABS: African American GFR (CKD) 60 (>60 ml/min/1.73 sqM); Anion Gap 4 mmol/L; Blood Urea Nitrogen 64 mg/dL (9-20); Calcium 8.1 mg/dL (8.4-10.2); Carbon Dioxide 35 mmol/L (22-30); Chloride 97 mmol/L (98-107); Glucose 167 mg/dL (74-99); Non-African American GFR(CKD) 52 (>60 ml/min/1.73 sqM); Potassium 3.9 mmol/L (3.5-5.1); Sodium 136 mmol/L (137-145)
[2024-06-16] MEDS: INSULIN ASPART (NovoLOG) 100 UNIT/ML VIAL SQ SCH (08:59)
[2024-06-16] MEDS: predniSONE 20 MG TAB PO SCH (09:00)
--- NOTE | 2024-06-16 10:59 | P.PN ---
Subjective Progress Note Date: 06/15/24 59-year-old male, history of hypertension, hyperlipidemia, atrial fibrillation, asthma/COPD, sleep apnea, who comes from the residential because he was more lethargic and his pulse ox was low at the residential. Patient normally is on 2 L of oxygen at home. Patient himself wakes up and has no complaints however he is quick to go back to sleep. Patient has had no history of fever or chills patient denied any chest pain or palpitation. Patient has any abdominal pain patient has nausea vomiting diarrhea Blood work reveals WBC of 5.3, hemoglobin of 13.6 and platelet count of 144, sodium 138, potassium 4.6, BUNs/creatinine of 55/1.8 and blood glucose of 155, magnesium elevated at 2.5, lactic acid level of 1.5, troponin 0.023, ABG reveals pH of 7.24, pCO2 of 84, pO2 of 63; patient is admitted for further treatment for pulmonary edema hypercapnia Chest x-ray completed in ED reveals pulmonary edema 24-hour interval change 06/07/2024, -Patient is seen and evaluated in room at bedside; patient is doing well today, less shortness of breath less cough, no wheezing, no chest pain, no fever, no c hills, no hemoptysis --presently on 3 L nasal cannula, and his O2 saturation is 100% hemodynamically stable blood pressure is 116/73. Review shows WBC count is 7.5 hemoglobin is 15.2 basic metabolic profile is normal bicarb is 36 BUN 50 creatinine 1.55, steadily improving compared to creatinine of 1.81 on admission Continue bronchodilators and methylprednisolone 40 mg IV every 8 hours Continue diuretics, Lasix 40 mg IV push every 8 hours, continue Diamox to 50 mg p.o. twice daily Continue amiodarone and Eliquis 06/08 Patient is awake alert, sitting at the bedside, looks tired. Patient has been using BiPAP machine all night but he could not sleep well because of frequent epistaxis happened last night. Currently epistaxis is stopped. No other bleeding from anywhere else. No headache dizziness or new weakness numbness. No chest pain. He still complaining from dyspnea but improving, leg swelling is better. No other GI/ symptom He is currently on 4 L oxygen via nasal cannula, at home he was using 2 L. I discussed the risk and benefits of anticoagulation including Eliquis and he agrees. Eliquis was resumed and we will going to monitor for bleeding. He is currently on Protonix 40 mg p.o. daily 06/09 Patient still with breathing difficulty. He is not in respiratory distress while at rest but he has still has limited air entry in both sides. He is using BiPAP overnight IV Lasix lowered to twice daily. Creatinine was 1.9. Check creatinine tomorrow Metoprolol dose increased 150 twice daily and to 200 mg in the morning and 200 mg in the evening Patient also remains on IV Solu-Medrol 40 mg Echocardiogram done yesterday showing ejection fraction of 60 to 65%, it was suboptimal study 06/10 Patient overall doing okay His breathing is quiet but looks at baseline. He is currently on 3 L of oxygen which is same home dose of 2-3. Patient confirms to me he has a concentrator and machine at home for his oxygen. Also he confirms to me he has Eliquis at home. Patient adamant not to go to subacute rehab, he says he had bad experience last time. Patient thus will be discharged home with home care. However multiple home agency rejected the patient. We will discussed with the patient and still recommend to go to subacute rehab if he agrees He has superficial wound on the tip of his right second toe. Wound consult is requested Overall doing well. Pulmonary team cleared him for discharge. [employer] team recommend to monitor him 1 more day. After his IV Lasix switched to oral dose. Will monitor creatinine tomorrow Possible discharge in 24 to 48 hours 06/11 Patient was quite agitated overnight, he was hypoxic. He was transferred to the ICU after given some sedatives and placed back on BiPAP. Currently tolerating diet well and his oxygenation is improved Metoprolol dose was increased to 200 mg daily. Repeat chest x-ray showed cardiomegaly with pulm pulmonary vascular congestion, mild He remains on IV Solu-Medrol 60 mg. Normal Saline 75 mL started 06/12 Patient is still in the ICU, on BiPAP with a setting of 16/6 and FiO2 of 30% He is calm not agitated. Patient did not need extra doses of Haldol or Ativan He denies chest pain or any other new complaint He still adamant not to go To subacute rehab upon discharge despite the risk of noncompliance with BiPAP and other medical management 06/13 : Patient seen and evaluated bedside, patient transferred out of ICU, continue to have lower extremity edema, blood work reviewed platelets 73, serum chemistry sodium 133 potassium 3.6 creatinine 1.44, blood glucose in 300 06/14- patient seen and evaluated at bedside, patient remains on 2 L of oxygen, noted to have temp of 97.5 early in the morning. CBC reviewed WBC 8.8 platelet count of 77, serum chemistry sodium 134 potassium 4 creatinine 1.44, will increase dose of Lantus to 26 units twice daily, steroid wean down 06/15/2024 Patient is lying in the bed. Awake alert and oriented x 3. Requiring 2 L oxygen via nasal cannula. No complaints of chest pain or worsening shortness of breath. Still having bilateral lower extremity swelling and chronic venous stasis changes. No drainage from the leg wounds. Otherwise patient is being continued on Lasix 40 mg p.o. twice daily. He is also on IV Solu-Medrol, changed to prednisone 40 mg daily. Continue on DuoNebs and insulin regimen. Laboratory data showed WBC 12.3 hemoglobin 15.2 and platelets 96 sodium 133 potassium 4.7 chloride 97 bicarb is 30 BUN 65 and creatinine 1.37 and blood sugar 346. Calcium 8.5. Cardiology and pulmonary is on board. PHYSICAL EXAMINATION: GENERAL: The patient is alert and oriented x3, morbidly obese HEENT: Pupils are round and equally reacting to light. EOMI. CARDIOVASCULAR: S1 and S2 present. No murmurs, rubs, or gallops. PULMONARY: Chest is clear to auscultation, no wheezing or crackles. ABDOMEN: Soft, nontender, nondistended, normoactive bowel sounds. No palpable organomegaly. MUSCULOSKELETAL: No joint swelling or deformity. EXTREMITIES: Bilateral lower extremity swelling and venous stasis changes. NEUROLOGICAL: Gross neurological examination did not reveal any focal deficits. SKIN: Bilateral lower extremity edema, wound bandage Objective - Vital Signs Vital signs: Vital Signs Temp 97.8 F 06/15/24 19:53 Pulse 84 06/15/24 22:04 Resp 8 L 06/15/24 19:53 BP 111/55 06/15/24 19:53 Pulse Ox 96 06/15/24 19:53 FiO2 30 06/14/24 15:09 Intake & Output 06/15/24 06/15/24 06/16/24 06:59 18:59 06:59 Intake Total 10 902 Output Total 1350 725 Balance -1340 177 Weight 154 kg Intake: IV 10 Invasive Line 5 10 Oral 902 Output: Urine 1350 725 Other: Voiding Method Toilet Toilet Urinal Urinal # Voids 2 - Labs CBC & Chem 7: 06/16/24 06:59 06/16/24 06:59 Labs: Abnormal Lab Results - Last 24 Hours (Table) 06/15/24 06/15/24 06/15/24 Range/Units 06:09 06:09 06:14 WBC 12.3 H (3.8-10.6) k/uL RDW 17.0 H (11.5-15.5) % Plt Count 96 L (150-450) k/uL Sodium 133 L (137-145) mmol/L Chloride 97 L (98-107) mmol/L BUN 65 H (9-20) mg/dL Creatinine 1.37 H (0.66-1.25) mg/dL Glucose 317 H (74-99) mg/dL POC Glucose (mg/dL) 346 H (70-110) mg/dL 06/15/24 06/15/24 Range/Units 16:09 19:59 WBC (3.8-10.6) k/uL RDW (11.5-15.5) % Plt Count (150-450) k/uL Sodium (137-145) mmol/L Chloride (98-107) mmol/L BUN (9-20) mg/dL Creatinine (0.66-1.25) mg/dL Glucose (74-99) mg/dL POC Glucose (mg/dL) 351 H 399 H (70-110) mg/dL Assessment and Plan Assessment: Assessment: * acute on chronic hypoxic hypercapnic respiratory failure * acute exacerbation of congestive heart failure diastolic dysfunction * Acute COPD exacerbation * chronic atrial fibrillation with controlled ventricular response * obstructive sleep apnea * history of hypertension * history of hyperlipidemia * BPH * diabetes mellitus type 2 on insulin * history of noncompliant * Morbid obesity BMI 44.8 Plan: patient is currently in the medical floor. Patient is off BiPAP continue with oxygen supplementation via nasal cannula in regards to CHF exacerbation continue patient on Lasix, continue to monitor intake and output, continue Aldactone. Patient is also on Diamox. in regards to COPD exacerbation continue breathing treatment IV Solu-Medrol, wean down from 60mg every 6hr to prednisone 40mg daily. Pulmonary medicine following in regards to diabetes mellitus continue Accu-Cheks continue insulin correctional and Levemir monitor for hypoglycemia, dose of Lantus increased secondary to hyperglycemia. in regards to atrial fibrillation anticoagulation with Eliquis, continue rate control with metoprolol, amiodarone discontinued by cardiology during this hospitalization in regards to BPH continue Flomax DVT prophylaxis: Eliquis GI Prophylaxis: Protonix Time with Patient: Greater than 30
[2024-06-16 11:58] LABS: Glucose,Whole Blood 216 mg/dL (70-110)
[2024-06-16 16:35] LABS: Glucose,Whole Blood 222 mg/dL (70-110)
--- NOTE | 2024-06-16 18:57 | P.PN ---
Subjective Progress Note Date: 06/16/24 This is a 59-year-old white male familiar to my service, known history of multiple medical problems including severe end-stage COPD, obstructive sleep apnea syndrome, BiPAP dependent almost, history of chronic hypoxic and chronic hypercapnic respiratory failure, patient is frequently in the hospital with similar presentation each time. This time he was seen in the ER with worsening shortness of breath, and he noted that his O2 saturation has been getting less and less, patient is known to be noncompliant at times with his BiPAP. At any rate patient was seen in the ER, ABG showed relative hypoxia with a pO2 of 63 on 35% FiO2 84 pH of 7.24 patient had positive drug screen for oxycodone and benzod iazepines, patient was placed on BiPAP and I saw him in the ER, recommended that the patient goes on his usual treatment with bronchodilators, BiPAP, and diuretics. Patient himself is not a great historian and he was not a great historian today when I saw him in the ER as he was hypercapnic on BiPAP, lethargic but arousable and did not follow much instructions labs showed normal CBC, abnormal ABG as noted earlier, Bicarb of 39 BUN 55 creatinine 1.81 elevated BNP level, and chest x-ray showing evidence of pulmonary edema Patient was seen today on 06/06/2024, feeling a bit better today, breathing easier, patient is on bronchodilators and is also on BiPAP intermittently, now on 3 L nasal cannula does not seem to be in any distress, remains on diuretics for his congestive heart failure. Improving and he is almost back to baseline. WBC is 4.2 hemoglobin 13.1 electrolytes are normal bicarb is 38 BUN is 49 creatinine 1.58 Seen today on 06/07/2024, patient is doing well today, less shortness of breath less cough, no wheezing, no chest pain, no fever, no chills, no hemoptysis presently on 3 L nasal cannula, and his O2 saturation is 100% hemodynamically stable blood pressure is 116/73. WBC count is 7.5 hemoglobin is 15.2 basic metabolic profile is normal bicarb is 36 BUN 50 creatinine 1.55, steadily improving compared to creatinine of 1.81 on admission Progress note dated June 08, 2024. The patient is seen in room 350. He continues on oxygen at 4 L. No IV fluids. The use of BiPAP, last night, only for short period of time, because apparently caused a nosebleed. His BiPAP settings were seen over 6, 35%. He is sitting on the side of the bed. In no distress. Current labs include sodium 136, potassium 4.7, chlorides 90, CO2 34, BUN 57, and creatinine 1.92. Glucose is 243. Calcium is 8.5. Progress note dated June 09, 2024. 59-year-old male seen today in room 350. The patient remains on nasal O2 at 3 L. He did use a BiPAP for 5 hours last night, with settings of 16/6, 35%. He is not receiving any IV fluids. He is feeling about the same. No new labs tod ay other than a glucose of 210. Progress note dated June 10, 2024. 59-year-old male seen today in room 350. The patient is doing about the same. The nurses asked whether or not he could be discharged, and from our perspective, he can be. He is on BiPAP at 16/6, 35% in the evening. During the daytime, he is on nasal O2, 2 L. He is not receiving any IV fluids. He has no new complaints today. Sodium 136, potassium 4.6, chlorides 95, CO2 39, BUN 67, creatinine 1.83. Glucose is 319. Progress note dated June 11, 2024. 59-year-old male with a history of severe COPD. The patient was being managed up on the third floor, but this morning apparently became very agitated. He was pulling off his BiPAP. Saturations were quite low. The patient was transferred to the intensive care unit, for further monitoring and management. A blood gas was done showing a pO2 of 78, pCO2 of 46, pH of 7.41. BiPAP settings of 16/6, and 35%. Is not receiving any IV fluids. The patient is a DO NOT RESUSCITATE patient. I have added Ativan 1 mg IV every 6 hours, and Haldol 48 mg IM or IV, every 4 hours as needed. The patient is quite agitated. Sodium 135, potassium 4.6, chlorides 96, CO2 31, BUN 73, creatinine 1.61. Glucose is 218. Calcium is 8.8. Chest x-ray shows evidence of cardiomegaly, and some pulmonary vascular congestion. Progress note dated June 12, 2024. 59-year-old male who is again seen in room 253. The patient currently is on BiPAP. BiPAP settings are 16/6, 35%. Will drop the FiO2 down to 30%. He is not receiving any IV fluids. According to the nurse, the patient had a uneventful night last night. Current labs include a white count 8.8, hemoglobin 13.5, hematocrit 43.3, platelet count 91,000. Sodium 138, potassium 3.9, chlorides 98, CO2 37, BUN 66, creatinine 1.56. Glucose is 292. Calcium 8.1. Chest x-ray shows mild bibasilar infiltrates, consistent with atelectasis. Progress note dated June 13, 2024. 59-year-old male seen again in room 253. Yesterday, when I saw him in the morning, he was on BiPAP. Apparently throughout the day he was on 2 L. Overnight, he continues on BiPAP at 16/6, and 30%. He is not receiving any IV fluids. According to the nurses he had a pretty uneventful day yesterday. White count is 10.4, hemoglobin 13.8, hematocrit 44.4, platelet count 73,000. Sodium 133, potassium 3.6, chlorides 99, CO2 33, BUN 60, creatinine 1.44. Glucose is 266. Calcium is 8.3. No chest x-ray today. Progress note dated June 14, 2024. 59-year-old obese male, seen in room 385. The patient was in the intensive care unit, for a number of days, for worsening respiratory failure. I believe that this patient occasionally will either not wear his BiPAP device, or he takes it off, while he is sleeping, becomes more hypoxemic and hypercapnic, which creates agitation, and confusion. Currently, he is on 2 L of nasal oxygen. While on BiPAP, his settings are 16/6, 30%. The patient is not receiving any IV fluids. He is resting comfortably in bed. He has severe COPD with an FEV1 that is less than 20% of predicted. Current labs include a white count 8.8, hemoglobin 14.2, hematocrit 46, and a platelet count of 77,000. Sodium 134, potassium 4, chloride 97, CO2 33, BUN 64, creatinine 1.44. Glucose is 383. Calcium is 8.3. On 06/15/2024, the patient is doing well. No specific complaints. He is on 2 L of oxygen by nasal cannula with a pulse ox of 99 to 100%. No significant cough sputum production chest tightness or wheezing. Continues to have some edema lower extremities bilaterally. Remains on DuoNeb the regiment [id number]. Remains on IV Solu-Medrol 40 mg every 12 hours regarding history of the exacerbation the patient is also on a combination of Perforomist and Pulmicort updrafts twice a day. He is on Aldactone 25 mg p.o. daily. He is also on Lasix 40 mg p.o. twice daily and Diamox to 50 mg p.o. twice a day. Remains on metoprolol 200 mg p.o. daily in the morning and 200 mg at bedtime. Rest of the medications remain unchanged. White cell count of 12.3 with a hemoglobin 15.2 and a platelet count of 96. BUN 65 with a creatinine of 1.37 and sodium levels at 133. Glucose levels are slightly elevated and the patient is on Levemir insulin 35 units twice a day and NovoLog 5 units with meal and sliding scale coverage. The patient also has a BiPAP at the bedside which she is using overnight at a pressure of 16/6 with a FiO2 of 30%. The patient is currently on 3 L of oxygen by nasal cannula. 06/16/2024, the patient is being seen for a follow-up. No new complaints. Sit ting at the edge of the bed. Remains on DuoNeb updrafts. Remains on Pulmicort Respules and Perforomist. Currently on prednisone burst taper started at a dose of 40 mg p.o. daily. Remains on Levemir insulin 35 units twice daily and NovoLog 9 units with meals and insulin scale coverage. Remains on diuretics and the patient is currently on Lasix 40 mg p.o. twice daily and Aldactone 25 mg p.o. daily. Rest of the medications remain unchanged. The patient is calm and comfortable on 3 L of oxygen by nasal cannula with a pulse ox of 98%. Fluid balance has been -1.6 L over the past 24 hours. The white cell count of 13.2 with hemoglobin 15. BUN 64 with a creatinine 1.4 and a sodium levels at 136. Renal function stable. Potassium levels are 3.9. Serum bicarbonate 25. No antibiotic coverage at this point in time. Objective - Vital Signs Vital signs: Vital Signs Temp 97.7 F 06/16/24 08:45 Pulse 84 06/16/24 12:18 Resp 16 06/16/24 08:45 BP 125/72 06/16/24 08:45 Pulse Ox 98 06/16/24 08:45 FiO2 30 06/14/24 15:09 Intake & Output 06/15/24 06/16/24 06/16/24 18:59 06:59 18:59 Intake Total 902 118 Output Total 725 200 Balance 177 -82 Weight 154.1 kg Intake: Oral 902 118 Output: Urine 725 200 Other: Voiding Method Toilet Toilet Toilet Urinal Urinal Urinal # Voids 1 - Exam The patient is quite confused, and agitated. Currently on nasal O2 at 3 L. HEENT examination is grossly unremarkable. Mucous membranes are moist. No oral lesions. Neck supple. Full range of motion. No adenopathy thyromegaly or neck vein distention. Cardiovascular examination reveals an irregular rhythm and rate. S1-S2 normal. No S3 or S4. No discernible murmur noted. Heart sounds are distant. Lungs reveal mostly clear breath sounds. Breath sounds are diminished. No wheezes. No rhonchi. No distinct crackles noted. Abdomen, soft but obese. Bowel sounds are noted. Extremities reveal 2+ edema, and chronic venous stasis changes. No clubbing or cyanosis. Both legs are wrapped. Skin is without rash or lesion. Neurologic examination is brief but nonfocal. - Labs CBC & Chem 7: 06/16/24 06:59 06/16/24 06:59 Labs: Abnormal Lab Results - Last 24 Hours (Table) 06/15/24 06/15/24 06/16/24 Range/Units 16:09 19:59 06:18 WBC (3.8-10.6) k/uL MCHC (31.0-37.0) g/dL RDW (11.5-15.5) % Plt Count (150-450) k/uL Neutrophils # (1.3-7.7) k/uL Lymphocytes # (1.0-4.8) k/uL Sodium (137-145) mmol/L Chloride (98-107) mmol/L Carbon Dioxide (22-30) mmol/L BUN (9-20) mg/dL Creatinine (0.66-1.25) mg/dL Glucose (74-99) mg/dL POC Glucose (mg/dL) 351 H 399 H 162 H (70-110) mg/dL Calcium (8.4-10.2) mg/dL 06/16/24 06/16/24 06/16/24 Range/Units 06:59 06:59 11:57 WBC 13.2 H (3.8-10.6) k/uL MCHC 30.7 L (31.0-37.0) g/dL RDW 16.7 H (11.5-15.5) % Plt Count 123 L (150-450) k/uL Neutrophils # 12.1 H (1.3-7.7) k/uL Lymphocytes # 0.3 L (1.0-4.8) k/uL Sodium 136 L (137-145) mmol/L Chloride 97 L (98-107) mmol/L Carbon Dioxide 35 H (22-30) mmol/L BUN 64 H (9-20) mg/dL Creatinine 1.44 H (0.66-1.25) mg/dL Glucose 167 H (74-99) mg/dL POC Glucose (mg/dL) 216 H (70-110) mg/dL Calcium 8.1 L (8.4-10.2) mg/dL Assessment and Plan Plan: Acute on chronic hypoxemic and hypercapnic respiratory failure, secondary to chronic diastolic CHF exacerbation, as well as COPD exacerbation. Patient is currently on 3 L of oxygen by nasal cannula. No significant respiratory distress. The patient is currently off the BiPAP. Small bilateral pleural effusions. Severe COPD, stage IV, with an FEV1 that is 22% of predicted. Obstructive sleep apnea syndrome, noncompliant with noninvasive positive pressure ventilation. Morbid obesity with a BMI of 48.7 kg/m. Stage IIIa chronic kidney disease. Atrial fibrillation. Chronic lower extremity edema. History of hypertension. History of hyperlipidemia. Former tobacco dependence. Severe cellulitis of the right lower extremity, stable, recovered Plan: Clinically stable will continue same treatment Patient currently off the BiPAP and on 3 days of oxygen by nasal cannula Continue Lasix 40 mg p.o. twice a day Continue Aldactone 25 mg p.o. daily Serum bicarb is at 37 Continue DuoNeb nebulized treatments [id number] in addition to a combination of Perforomist and Pulmicort updrafts Prednisone burst taper Continue the combination of metoprolol and anticoagulation with Eliquis regarding his atrial fibrillation Continue Levemir insulin 35 units twice daily along with 5 units of NovoLog with meals and sliding scale coverage Will continue to follow
[2024-06-16 20:25] LABS: Glucose,Whole Blood 219 mg/dL (70-110)
[2024-06-17 01:41] LABS: Glucose,Whole Blood 169 mg/dL (70-110)
[2024-06-17 06:22] LABS: Glucose,Whole Blood 140 mg/dL (70-110)
[2024-06-17 08:01] LABS: Glucose,Whole Blood 146 mg/dL (70-110)
[2024-06-17 08:55] LABS: Anisocytosis Slight; Basophils # (A) 0.1 k/uL (0-0.2); Basophils % (A) 0 %; Eosinophils # (A) 0.1 k/uL (0-0.7); Eosinophils % (A) 0 %; HCT 48.7 % (39.0-53.0); HGB 15.6 gm/dL (13.0-17.5); Hypochromasia Moderate; Lymphocytes # (A) 0.6 k/uL (1.0-4.8); Lymphocytes % (A) 3 %; MCH 29.1 pg (25.0-35.0); MCHC 31.9 g/dL (31.0-37.0); MCV 91.2 fL (80.0-100.0); Mean Platelet Volume 9.9; Monocytes # (A) 1.2 k/uL (0-1.0); Monocytes % (A) 6 %; Neutrophils # (A) 19.6 k/uL (1.3-7.7); Neutrophils % (A) 90 %; Platelet Count 131 k/uL (150-450); RBC 5.34 m/uL (4.30-5.90); RDW 16.7 % (11.5-15.5); WBC 21.6 k/uL (3.8-10.6)
[2024-06-17 09:42] LABS: African American GFR (CKD) 51 (>60 ml/min/1.73 sqM); Anion Gap 4 mmol/L; Blood Urea Nitrogen 63 mg/dL (9-20); Calcium 8.2 mg/dL (8.4-10.2); Carbon Dioxide 36 mmol/L (22-30); Chloride 95 mmol/L (98-107); Glucose 96 mg/dL (74-99); Non-African American GFR(CKD) 44 (>60 ml/min/1.73 sqM); Potassium 4.3 mmol/L (3.5-5.1); Sodium 135 mmol/L (137-145)
[2024-06-17 11:10] LABS: Glucose,Whole Blood 117 mg/dL (70-110)
[2024-06-17 16:17] LABS: Glucose,Whole Blood 120 mg/dL (70-110)
--- NOTE | 2024-06-17 16:50 | P.PN ---
Subjective Progress Note Date: 06/17/24 This is a 59-year-old white male familiar to my service, known history of multiple medical problems including severe end-stage COPD, obstructive sleep apnea syndrome, BiPAP dependent almost, history of chronic hypoxic and chronic hypercapnic respiratory failure, patient is frequently in the hospital with similar presentation each time. This time he was seen in the ER with worsening shortness of breath, and he noted that his O2 saturation has been getting less and less, patient is known to be noncompliant at times with his BiPAP. At any rate patient was seen in the ER, ABG showed relative hypoxia with a pO2 of 63 on 35% FiO2 84 pH of 7.24 patient had positive drug screen for oxycodone and benzod iazepines, patient was placed on BiPAP and I saw him in the ER, recommended that the patient goes on his usual treatment with bronchodilators, BiPAP, and diuretics. Patient himself is not a great historian and he was not a great historian today when I saw him in the ER as he was hypercapnic on BiPAP, lethargic but arousable and did not follow much instructions labs showed normal CBC, abnormal ABG as noted earlier, Bicarb of 39 BUN 55 creatinine 1.81 elevated BNP level, and chest x-ray showing evidence of pulmonary edema Patient was seen today on 06/06/2024, feeling a bit better today, breathing easier, patient is on bronchodilators and is also on BiPAP intermittently, now on 3 L nasal cannula does not seem to be in any distress, remains on diuretics for his congestive heart failure. Improving and he is almost back to baseline. WBC is 4.2 hemoglobin 13.1 electrolytes are normal bicarb is 38 BUN is 49 creatinine 1.58 Seen today on 06/07/2024, patient is doing well today, less shortness of breath less cough, no wheezing, no chest pain, no fever, no chills, no hemoptysis presently on 3 L nasal cannula, and his O2 saturation is 100% hemodynamically stable blood pressure is 116/73. WBC count is 7.5 hemoglobin is 15.2 basic metabolic profile is normal bicarb is 36 BUN 50 creatinine 1.55, steadily improving compared to creatinine of 1.81 on admission Progress note dated June 08, 2024. The patient is seen in room 350. He continues on oxygen at 4 L. No IV fluids. The use of BiPAP, last night, only for short period of time, because apparently caused a nosebleed. His BiPAP settings were seen over 6, 35%. He is sitting on the side of the bed. In no distress. Current labs include sodium 136, potassium 4.7, chlorides 90, CO2 34, BUN 57, and creatinine 1.92. Glucose is 243. Calcium is 8.5. Progress note dated June 09, 2024. 59-year-old male seen today in room 350. The patient remains on nasal O2 at 3 L. He did use a BiPAP for 5 hours last night, with settings of 16/6, 35%. He is not receiving any IV fluids. He is feeling about the same. No new labs tod ay other than a glucose of 210. Progress note dated June 10, 2024. 59-year-old male seen today in room 350. The patient is doing about the same. The nurses asked whether or not he could be discharged, and from our perspective, he can be. He is on BiPAP at 16/6, 35% in the evening. During the daytime, he is on nasal O2, 2 L. He is not receiving any IV fluids. He has no new complaints today. Sodium 136, potassium 4.6, chlorides 95, CO2 39, BUN 67, creatinine 1.83. Glucose is 319. Progress note dated June 11, 2024. 59-year-old male with a history of severe COPD. The patient was being managed up on the third floor, but this morning apparently became very agitated. He was pulling off his BiPAP. Saturations were quite low. The patient was transferred to the intensive care unit, for further monitoring and management. A blood gas was done showing a pO2 of 78, pCO2 of 46, pH of 7.41. BiPAP settings of 16/6, and 35%. Is not receiving any IV fluids. The patient is a DO NOT RESUSCITATE patient. I have added Ativan 1 mg IV every 6 hours, and Haldol 48 mg IM or IV, every 4 hours as needed. The patient is quite agitated. Sodium 135, potassium 4.6, chlorides 96, CO2 31, BUN 73, creatinine 1.61. Glucose is 218. Calcium is 8.8. Chest x-ray shows evidence of cardiomegaly, and some pulmonary vascular congestion. Progress note dated June 12, 2024. 59-year-old male who is again seen in room 253. The patient currently is on BiPAP. BiPAP settings are 16/6, 35%. Will drop the FiO2 down to 30%. He is not receiving any IV fluids. According to the nurse, the patient had a uneventful night last night. Current labs include a white count 8.8, hemoglobin 13.5, hematocrit 43.3, platelet count 91,000. Sodium 138, potassium 3.9, chlorides 98, CO2 37, BUN 66, creatinine 1.56. Glucose is 292. Calcium 8.1. Chest x-ray shows mild bibasilar infiltrates, consistent with atelectasis. Progress note dated June 13, 2024. 59-year-old male seen again in room 253. Yesterday, when I saw him in the morning, he was on BiPAP. Apparently throughout the day he was on 2 L. Overnight, he continues on BiPAP at 16/6, and 30%. He is not receiving any IV fluids. According to the nurses he had a pretty uneventful day yesterday. White count is 10.4, hemoglobin 13.8, hematocrit 44.4, platelet count 73,000. Sodium 133, potassium 3.6, chlorides 99, CO2 33, BUN 60, creatinine 1.44. Glucose is 266. Calcium is 8.3. No chest x-ray today. Progress note dated June 14, 2024. 59-year-old obese male, seen in room 385. The patient was in the intensive care unit, for a number of days, for worsening respiratory failure. I believe that this patient occasionally will either not wear his BiPAP device, or he takes it off, while he is sleeping, becomes more hypoxemic and hypercapnic, which creates agitation, and confusion. Currently, he is on 2 L of nasal oxygen. While on BiPAP, his settings are 16/6, 30%. The patient is not receiving any IV fluids. He is resting comfortably in bed. He has severe COPD with an FEV1 that is less than 20% of predicted. Current labs include a white count 8.8, hemoglobin 14.2, hematocrit 46, and a platelet count of 77,000. Sodium 134, potassium 4, chloride 97, CO2 33, BUN 64, creatinine 1.44. Glucose is 383. Calcium is 8.3. On 06/15/2024, the patient is doing well. No specific complaints. He is on 2 L of oxygen by nasal cannula with a pulse ox of 99 to 100%. No significant cough sputum production chest tightness or wheezing. Continues to have some edema lower extremities bilaterally. Remains on DuoNeb the regiment [id number]. Remains on IV Solu-Medrol 40 mg every 12 hours regarding history of the exacerbation the patient is also on a combination of Perforomist and Pulmicort updrafts twice a day. He is on Aldactone 25 mg p.o. daily. He is also on Lasix 40 mg p.o. twice daily and Diamox to 50 mg p.o. twice a day. Remains on metoprolol 200 mg p.o. daily in the morning and 200 mg at bedtime. Rest of the medications remain unchanged. White cell count of 12.3 with a hemoglobin 15.2 and a platelet count of 96. BUN 65 with a creatinine of 1.37 and sodium levels at 133. Glucose levels are slightly elevated and the patient is on Levemir insulin 35 units twice a day and NovoLog 5 units with meal and sliding scale coverage. The patient also has a BiPAP at the bedside which she is using overnight at a pressure of 16/6 with a FiO2 of 30%. The patient is currently on 3 L of oxygen by nasal cannula. 06/16/2024, the patient is being seen for a follow-up. No new complaints. Sit ting at the edge of the bed. Remains on DuoNeb updrafts. Remains on Pulmicort Respules and Perforomist. Currently on prednisone burst taper started at a dose of 40 mg p.o. daily. Remains on Levemir insulin 35 units twice daily and NovoLog 9 units with meals and insulin scale coverage. Remains on diuretics and the patient is currently on Lasix 40 mg p.o. twice daily and Aldactone 25 mg p.o. daily. Rest of the medications remain unchanged. The patient is calm and comfortable on 3 L of oxygen by nasal cannula with a pulse ox of 98%. Fluid balance has been -1.6 L over the past 24 hours. The white cell count of 13.2 with hemoglobin 15. BUN 64 with a creatinine 1.4 and a sodium levels at 136. Renal function stable. Potassium levels are 3.9. Serum bicarbonate 25. No antibiotic coverage at this point in time. On 06/17/2024, no new complaint since the patient remains on 3 L of oxygen by nasal cannula. Sitting up in a chair. Edema lower extremities still present. White cell count of 21 with a hemoglobin of 15.6 and a platelet count of 131. Electrolytes are stable and the patient has chronic metabolic alkalosis with a serum bicarb of 36 and a BUN of 63 and a creatinine of 1.66. Medications remain unchanged. Remains on anticoagulation. Remains on Lasix 40 mg p.o. twice daily, Diamox to 50 mg p.o. twice a day and Aldactone 25 mg p.o. daily. Remains on Flomax. No respiratory distress for now. Objective - Vital Signs Vital signs: Vital Signs Temp 98.4 F 06/17/24 08:15 Pulse 108 H 06/17/24 08:15 Resp 16 06/17/24 08:15 BP 98/76 06/17/24 08:15 Pulse Ox 96 06/17/24 08:15 FiO2 30 06/17/24 02:47 Intake & Output 06/16/24 06/17/24 06/17/24 18:59 06:59 18:59 Intake Total 798 237 110 Output Total 200 650 400 Balance 598 -413 -290 Weight 154.5 kg Intake: Oral 798 237 110 Output: Urine 200 650 400 Other: Voiding Method Toilet Toilet Toilet Urinal Urinal Urinal # Voids 3 1 - Exam The patient is quite confused, and agitated. Currently on nasal O2 at 3 L. HEENT examination is grossly unremarkable. Mucous membranes are moist. No oral lesions. Neck supple. Full range of motion. No adenopathy thyromegaly or neck vein distention. Cardiovascular examination reveals an irregular rhythm and rate. S1-S2 normal. No S3 or S4. No discernible murmur noted. Heart sounds are distant. Lungs reveal mostly clear breath sounds. Breath sounds are diminished. No wheezes. No rhonchi. No distinct crackles noted. Abdomen, soft but obese. Bowel sounds are noted. Extremities reveal 2+ edema, and chronic venous stasis changes. No clubbing or cyanosis. Both legs are wrapped. Skin is without rash or lesion. Neurologic examination is brief but nonfocal. - Labs CBC & Chem 7: 06/17/24 08:40 06/17/24 08:40 Labs: Abnormal Lab Results - Last 24 Hours (Table) 06/16/24 06/16/24 06/16/24 Range/Units 11:57 16:33 20:23 WBC (3.8-10.6) k/uL RDW (11.5-15.5) % Plt Count (150-450) k/uL Neutrophils # (1.3-7.7) k/uL Lymphocytes # (1.0-4.8) k/uL Monocytes # (0-1.0) k/uL Sodium (137-145) mmol/L Chloride (98-107) mmol/L Carbon Dioxide (22-30) mmol/L BUN (9-20) mg/dL Creatinine (0.66-1.25) mg/dL POC Glucose (mg/dL) 216 H 222 H 219 H (70-110) mg/dL Calcium (8.4-10.2) mg/dL 06/17/24 06/17/24 06/17/24 Range/Units 01:39 06:20 07:59 WBC (3.8-10.6) k/uL RDW (11.5-15.5) % Plt Count (150-450) k/uL Neutrophils # (1.3-7.7) k/uL Lymphocytes # (1.0-4.8) k/uL Monocytes # (0-1.0) k/uL Sodium (137-145) mmol/L Chloride (98-107) mmol/L Carbon Dioxide (22-30) mmol/L BUN (9-20) mg/dL Creatinine (0.66-1.25) mg/dL POC Glucose (mg/dL) 169 H 140 H 146 H (70-110) mg/dL Calcium (8.4-10.2) mg/dL 06/17/24 06/17/24 06/17/24 Range/Units 08:40 08:40 11:07 WBC 21.6 H (3.8-10.6) k/uL RDW 16.7 H (11.5-15.5) % Plt Count 131 L (150-450) k/uL Neutrophils # 19.6 H (1.3-7.7) k/uL Lymphocytes # 0.6 L (1.0-4.8) k/uL Monocytes # 1.2 H (0-1.0) k/uL Sodium 135 L (137-145) mmol/L Chloride 95 L (98-107) mmol/L Carbon Dioxide 36 H (22-30) mmol/L BUN 63 H (9-20) mg/dL Creatinine 1.66 H (0.66-1.25) mg/dL POC Glucose (mg/dL) 117 H (70-110) mg/dL Calcium 8.2 L (8.4-10.2) mg/dL Assessment and Plan Plan: Acute on chronic hypoxemic and hypercapnic respiratory failure, secondary to chronic diastolic CHF exacerbation, as well as COPD exacerbation. Patient is currently on 3 L of oxygen by nasal cannula. No significant respiratory distress. The patient is currently off the BiPAP. Small bilateral pleural effusions. Severe COPD, stage IV, with an FEV1 that is 22% of predicted. Obstructive sleep apnea syndrome, noncompliant with noninvasive positive pressure ventilation. Morbid obesity with a BMI of 48.7 kg/m. Stage IIIa chronic kidney disease. Atrial fibrillation. Chronic lower extremity edema. History of hypertension. History of hyperlipidemia. Former tobacco dependence. Severe cellulitis of the right lower extremity, stable, recovered Plan: Clinically stable will continue same treatment Patient currently off the BiPAP and on 3 days of oxygen by nasal cannula Continue Lasix 40 mg p.o. twice a day Continue Diamox Continue Aldactone 25 mg p.o. daily Monitor serum bicarb Continue DuoNeb nebulized treatments [id number] in addition to a combination of Perforomist and Pulmicort updrafts Prednisone burst taper Continue the combination of metoprolol and anticoagulation with Eliquis regarding his atrial fibrillation Continue Levemir insulin 35 units twice daily along with 5 units of NovoLog with meals and sliding scale coverage Will continue to follow
[2024-06-17 20:42] LABS: Glucose,Whole Blood 278 mg/dL (70-110)
--- NOTE | 2024-06-17 22:30 | P.PN ---
Subjective Progress Note Date: 06/16/24 59-year-old male, history of hypertension, hyperlipidemia, atrial fibrillation, asthma/COPD, sleep apnea, who comes from the [facility] because he was more lethargic and his pulse ox was low at the [facility]. Patient normally is on 2 L of oxygen at home. Patient himself wakes up and has no complaints however he is quick to go back to sleep. Patient has had no history of fever or chills patient denied any chest pain or palpitation. Patient has any abdominal pain patient has nausea vomiting diarrhea Blood work reveals WBC of 5.3, hemoglobin of 13.6 and platelet count of 144, sodium 138, potassium 4.6, BUNs/creatinine of 55/1.8 and blood glucose of 155, magnesium elevated at 2.5, lactic acid level of 1.5, troponin 0.023, ABG reveals pH of 7.24, pCO2 of 84, pO2 of 63; patient is admitted for further treatment for pulmonary edema hypercapnia Chest x-ray completed in ED reveals pulmonary edema 24-hour interval change 06/07/2024, -Patient is seen and evaluated in room at bedside; patient is doing well today, less shortness of breath less cough, no wheezing, no chest pain, no fever, no c hills, no hemoptysis --presently on 3 L nasal cannula, and his O2 saturation is 100% hemodynamically stable blood pressure is 116/73. Review shows WBC count is 7.5 hemoglobin is 15.2 basic metabolic profile is normal bicarb is 36 BUN 50 creatinine 1.55, steadily improving compared to creatinine of 1.81 on admission Continue bronchodilators and methylprednisolone 40 mg IV every 8 hours Continue diuretics, Lasix 40 mg IV push every 8 hours, continue Diamox to 50 mg p.o. twice daily Continue amiodarone and Eliquis 06/08 Patient is awake alert, sitting at the bedside, looks tired. Patient has been using BiPAP machine all night but he could not sleep well because of frequent epistaxis happened last night. Currently epistaxis is stopped. No other bleeding from anywhere else. No headache dizziness or new weakness numbness. No chest pain. He still complaining from dyspnea but improving, leg swelling is better. No other GI/ symptom He is currently on 4 L oxygen via nasal cannula, at home he was using 2 L. I discussed the risk and benefits of anticoagulation including Eliquis and he agrees. Eliquis was resumed and we will going to monitor for bleeding. He is currently on Protonix 40 mg p.o. daily 06/09 Patient still with breathing difficulty. He is not in respiratory distress while at rest but he has still has limited air entry in both sides. He is using BiPAP overnight IV Lasix lowered to twice daily. Creatinine was 1.9. Check creatinine tomorrow Metoprolol dose increased 150 twice daily and to 200 mg in the morning and 200 mg in the evening Patient also remains on IV Solu-Medrol 40 mg Echocardiogram done yesterday showing ejection fraction of 60 to 65%, it was suboptimal study 06/10 Patient overall doing okay His breathing is quiet but looks at baseline. He is currently on 3 L of oxygen which is same home dose of 2-3. Patient confirms to me he has a concentrator and machine at home for his oxygen. Also he confirms to me he has Eliquis at home. Patient adamant not to go to subacute rehab, he says he had bad experience last time. Patient thus will be discharged home with home care. However multiple home agency rejected the patient. We will discussed with the patient and still recommend to go to subacute rehab if he agrees He has superficial wound on the tip of his right second toe. Wound consult is requested Overall doing well. Pulmonary team cleared him for discharge. [employer] Supervisor team recommend to monitor him 1 more day. After his IV Lasix switched to oral dose. Will monitor creatinine tomorrow Possible discharge in 24 to 48 hours 06/11 Patient was quite agitated overnight, he was hypoxic. He was transferred to the ICU after given some sedatives and placed back on BiPAP. Currently tolerating diet well and his oxygenation is improved Metoprolol dose was increased to 200 mg daily. Repeat chest x-ray showed cardiomegaly with pulm pulmonary vascular congestion, mild He remains on IV Solu-Medrol 60 mg. Normal Saline 75 mL started 06/12 Patient is still in the ICU, on BiPAP with a setting of 16/6 and FiO2 of 30% He is calm not agitated. Patient did not need extra doses of Haldol or Ativan He denies chest pain or any other new complaint He still adamant not to go To subacute rehab upon discharge despite the risk of noncompliance with BiPAP and other medical management 06/13 : Patient seen and evaluated bedside, patient transferred out of ICU, continue to have lower extremity edema, blood work reviewed platelets 73, serum chemistry sodium 133 potassium 3.6 creatinine 1.44, blood glucose in 300 06/14- patient seen and evaluated at bedside, patient remains on 2 L of oxygen, noted to have temp of 97.5 early in the morning. CBC reviewed WBC 8.8 platelet count of 77, serum chemistry sodium 134 potassium 4 creatinine 1.44, will increase dose of Lantus to 26 units twice daily, steroid wean down 06/15/2024 Patient is lying in the bed. Awake alert and oriented x 3. Requiring 2 L oxygen via nasal cannula. No complaints of chest pain or worsening shortness of breath. Still having bilateral lower extremity swelling and chronic venous stasis changes. No drainage from the leg wounds. Otherwise patient is being continued on Lasix 40 mg p.o. twice daily. He is also on IV Solu-Medrol, changed to prednisone 40 mg daily. Continue on DuoNebs and insulin regimen. Laboratory data showed WBC 12.3 hemoglobin 15.2 and platelets 96 sodium 133 potassium 4.7 chloride 97 bicarb is 30 BUN 65 and creatinine 1.37 and blood sugar 346. Calcium 8.5. Cardiology and pulmonary is on board. 06/16/2024 Patient is currently resting in the bed. Awake alert and oriented x 3. On oxygen at 3 L via nasal cannula. Patient required BiPAP last night. Denies any complaints of chest pain. Breathing status is slightly better. Bilateral leg swelling is still present. No cough or sputum production. Patient has been afebrile. Patient is being continued on IV Solu-Medrol changed to p.o. prednisone. Co ntinue on DuoNebs. Blood sugars controlled with insulin regimen. Laboratory data showed WBC 13.2 hemoglobin 15.0 and platelets 123 sodium 136 potassium 3.9 chloride 97 bicarb 35 BUN 64 and creatinine 1.44 and blood sugar 167 calcium 8.1. Pulmonary is on board. PHYSICAL EXAMINATION: GENERAL: The patient is alert and oriented x3, morbidly obese HEENT: Pupils are round and equally reacting to light. EOMI. CARDIOVASCULAR: S1 and S2 present. No murmurs, rubs, or gallops. PULMONARY: Chest is clear to auscultation, no wheezing or crackles. ABDOMEN: Soft, nontender, nondistended, normoactive bowel sounds. No palpable organomegaly. MUSCULOSKELETAL: No joint swelling or deformity. EXTREMITIES: Bilateral lower extremity swelling and venous stasis changes. NEUROLOGICAL: Gross neurological examination did not reveal any focal deficits. SKIN: Bilateral lower extremity edema, wound bandage Objective - Vital Signs Vital signs: Vital Signs Temp 98.3 F 06/16/24 19:56 Pulse 90 06/16/24 20:55 Resp 17 06/16/24 19:56 BP 123/61 06/16/24 19:56 Pulse Ox 97 06/16/24 19:56 FiO2 30 06/14/24 15:09 Intake & Output 06/16/24 06/16/24 06/17/24 06:59 18:59 06:59 Intake Total 798 237 Output Total 200 Balance 598 237 Weight 154.1 kg Intake: Oral 798 237 Output: Urine 200 Other: Voiding Method Toilet Toilet Toilet Urinal Urinal Urinal # Voids 1 3 - Labs CBC & Chem 7: 06/17/24 08:40 06/17/24 08:40 Labs: Abnormal Lab Results - Last 24 Hours (Table) 06/16/24 06/16/24 06/16/24 Range/Units 06:18 06:59 06:59 WBC 13.2 H (3.8-10.6) k/uL MCHC 30.7 L (31.0-37.0) g/dL RDW 16.7 H (11.5-15.5) % Plt Count 123 L (150-450) k/uL Neutrophils # 12.1 H (1.3-7.7) k/uL Lymphocytes # 0.3 L (1.0-4.8) k/uL Sodium 136 L (137-145) mmol/L Chloride 97 L (98-107) mmol/L Carbon Dioxide 35 H (22-30) mmol/L BUN 64 H (9-20) mg/dL Creatinine 1.44 H (0.66-1.25) mg/dL Glucose 167 H (74-99) mg/dL POC Glucose (mg/dL) 162 H (70-110) mg/dL Calcium 8.1 L (8.4-10.2) mg/dL 06/16/24 06/16/24 06/16/24 Range/Units 11:57 16:33 20:23 WBC (3.8-10.6) k/uL MCHC (31.0-37.0) g/dL RDW (11.5-15.5) % Plt Count (150-450) k/uL Neutrophils # (1.3-7.7) k/uL Lymphocytes # (1.0-4.8) k/uL Sodium (137-145) mmol/L Chloride (98-107) mmol/L Carbon Dioxide (22-30) mmol/L BUN (9-20) mg/dL Creatinine (0.66-1.25) mg/dL Glucose (74-99) mg/dL POC Glucose (mg/dL) 216 H 222 H 219 H (70-110) mg/dL Calcium (8.4-10.2) mg/dL Assessment and Plan Assessment: Assessment: * acute on chronic hypoxic hypercapnic respiratory failure * acute exacerbation of congestive heart failure diastolic dysfunction * Acute COPD exacerbation * chronic atrial fibrillation with controlled ventricular response * obstructive sleep apnea * history of hypertension * history of hyperlipidemia * BPH * diabetes mellitus type 2 on insulin * history of noncompliant * Morbid obesity BMI 44.8 Plan: patient is currently in the medical floor. Patient is on 3 L via nasal cannula. BiPAP as needed. in regards to CHF exacerbation continue patient on Lasix, continue to monitor intake and output, continue Aldactone. Patient is also on Diamox. in regards to COPD exacerbation continue breathing treatment IV Solu-Medrol, wean down from 60mg every 6hr to prednisone 40mg daily. Pulmonary medicine following in regards to diabetes mellitus continue Accu-Cheks continue insulin correctional and Levemir monitor for hypoglycemia, dose of Lantus increased secondary to hyperglycemia. in regards to atrial fibrillation anticoagulation with Eliquis, continue rate control with metoprolol, amiodarone discontinued by cardiology during this hospitalization in regards to BPH continue Flomax DVT prophylaxis: Eliquis GI Prophylaxis: Protonix Time with Patient: Greater than 30
[2024-06-18 06:28] LABS: Glucose,Whole Blood 120 mg/dL (70-110)
[2024-06-18 12:04] LABS: Glucose,Whole Blood 74 mg/dL (70-110)
[2024-06-18 16:56] LABS: Glucose,Whole Blood 127 mg/dL (70-110)
--- NOTE | 2024-06-18 19:11 | P.PN ---
Subjective Progress Note Date: 06/18/24 This is a 59-year-old white male familiar to my service, known history of multiple medical problems including severe end-stage COPD, obstructive sleep apnea syndrome, BiPAP dependent almost, history of chronic hypoxic and chronic hypercapnic respiratory failure, patient is frequently in the hospital with similar presentation each time. This time he was seen in the ER with worsening shortness of breath, and he noted that his O2 saturation has been getting less and less, patient is known to be noncompliant at times with his BiPAP. At any rate patient was seen in the ER, ABG showed relative hypoxia with a pO2 of 63 on 35% FiO2 84 pH of 7.24 patient had positive drug screen for oxycodone and benzod iazepines, patient was placed on BiPAP and I saw him in the ER, recommended that the patient goes on his usual treatment with bronchodilators, BiPAP, and diuretics. Patient himself is not a great historian and he was not a great historian today when I saw him in the ER as he was hypercapnic on BiPAP, lethargic but arousable and did not follow much instructions labs showed normal CBC, abnormal ABG as noted earlier, Bicarb of 39 BUN 55 creatinine 1.81 elevated BNP level, and chest x-ray showing evidence of pulmonary edema Patient was seen today on 06/06/2024, feeling a bit better today, breathing easier, patient is on bronchodilators and is also on BiPAP intermittently, now on 3 L nasal cannula does not seem to be in any distress, remains on diuretics for his congestive heart failure. Improving and he is almost back to baseline. WBC is 4.2 hemoglobin 13.1 electrolytes are normal bicarb is 38 BUN is 49 creatinine 1.58 Seen today on 06/07/2024, patient is doing well today, less shortness of breath less cough, no wheezing, no chest pain, no fever, no chills, no hemoptysis presently on 3 L nasal cannula, and his O2 saturation is 100% hemodynamically stable blood pressure is 116/73. WBC count is 7.5 hemoglobin is 15.2 basic metabolic profile is normal bicarb is 36 BUN 50 creatinine 1.55, steadily improving compared to creatinine of 1.81 on admission Progress note dated June 08, 2024. The patient is seen in room 350. He continues on oxygen at 4 L. No IV fluids. The use of BiPAP, last night, only for short period of time, because apparently caused a nosebleed. His BiPAP settings were seen over 6, 35%. He is sitting on the side of the bed. In no distress. Current labs include sodium 136, potassium 4.7, chlorides 90, CO2 34, BUN 57, and creatinine 1.92. Glucose is 243. Calcium is 8.5. Progress note dated June 09, 2024. 59-year-old male seen today in room 350. The patient remains on nasal O2 at 3 L. He did use a BiPAP for 5 hours last night, with settings of 16/6, 35%. He is not receiving any IV fluids. He is feeling about the same. No new labs tod ay other than a glucose of 210. Progress note dated June 10, 2024. 59-year-old male seen today in room 350. The patient is doing about the same. The nurses asked whether or not he could be discharged, and from our perspective, he can be. He is on BiPAP at 16/6, 35% in the evening. During the daytime, he is on nasal O2, 2 L. He is not receiving any IV fluids. He has no new complaints today. Sodium 136, potassium 4.6, chlorides 95, CO2 39, BUN 67, creatinine 1.83. Glucose is 319. Progress note dated June 11, 2024. 59-year-old male with a history of severe COPD. The patient was being managed up on the third floor, but this morning apparently became very agitated. He was pulling off his BiPAP. Saturations were quite low. The patient was transferred to the intensive care unit, for further monitoring and management. A blood gas was done showing a pO2 of 78, pCO2 of 46, pH of 7.41. BiPAP settings of 16/6, and 35%. Is not receiving any IV fluids. The patient is a DO NOT RESUSCITATE patient. I have added Ativan 1 mg IV every 6 hours, and Haldol 48 mg IM or IV, every 4 hours as needed. The patient is quite agitated. Sodium 135, potassium 4.6, chlorides 96, CO2 31, BUN 73, creatinine 1.61. Glucose is 218. Calcium is 8.8. Chest x-ray shows evidence of cardiomegaly, and some pulmonary vascular congestion. Progress note dated June 12, 2024. 59-year-old male who is again seen in room 253. The patient currently is on BiPAP. BiPAP settings are 16/6, 35%. Will drop the FiO2 down to 30%. He is not receiving any IV fluids. According to the nurse, the patient had a uneventful night last night. Current labs include a white count 8.8, hemoglobin 13.5, hematocrit 43.3, platelet count 91,000. Sodium 138, potassium 3.9, chlorides 98, CO2 37, BUN 66, creatinine 1.56. Glucose is 292. Calcium 8.1. Chest x-ray shows mild bibasilar infiltrates, consistent with atelectasis. Progress note dated June 13, 2024. 59-year-old male seen again in room 253. Yesterday, when I saw him in the morning, he was on BiPAP. Apparently throughout the day he was on 2 L. Overnight, he continues on BiPAP at 16/6, and 30%. He is not receiving any IV fluids. According to the nurses he had a pretty uneventful day yesterday. White count is 10.4, hemoglobin 13.8, hematocrit 44.4, platelet count 73,000. Sodium 133, potassium 3.6, chlorides 99, CO2 33, BUN 60, creatinine 1.44. Glucose is 266. Calcium is 8.3. No chest x-ray today. Progress note dated June 14, 2024. 59-year-old obese male, seen in room 385. The patient was in the intensive care unit, for a number of days, for worsening respiratory failure. I believe that this patient occasionally will either not wear his BiPAP device, or he takes it off, while he is sleeping, becomes more hypoxemic and hypercapnic, which creates agitation, and confusion. Currently, he is on 2 L of nasal oxygen. While on BiPAP, his settings are 16/6, 30%. The patient is not receiving any IV fluids. He is resting comfortably in bed. He has severe COPD with an FEV1 that is less than 20% of predicted. Current labs include a white count 8.8, hemoglobin 14.2, hematocrit 46, and a platelet count of 77,000. Sodium 134, potassium 4, chloride 97, CO2 33, BUN 64, creatinine 1.44. Glucose is 383. Calcium is 8.3. On 06/15/2024, the patient is doing well. No specific complaints. He is on 2 L of oxygen by nasal cannula with a pulse ox of 99 to 100%. No significant cough sputum production chest tightness or wheezing. Continues to have some edema lower extremities bilaterally. Remains on DuoNeb the regiment [id number]. Remains on IV Solu-Medrol 40 mg every 12 hours regarding history of the exacerbation the patient is also on a combination of Perforomist and Pulmicort updrafts twice a day. He is on Aldactone 25 mg p.o. daily. He is also on Lasix 40 mg p.o. twice daily and Diamox to 50 mg p.o. twice a day. Remains on metoprolol 200 mg p.o. daily in the morning and 200 mg at bedtime. Rest of the medications remain unchanged. White cell count of 12.3 with a hemoglobin 15.2 and a platelet count of 96. BUN 65 with a creatinine of 1.37 and sodium levels at 133. Glucose levels are slightly elevated and the patient is on Levemir insulin 35 units twice a day and NovoLog 5 units with meal and sliding scale coverage. The patient also has a BiPAP at the bedside which she is using overnight at a pressure of 16/6 with a FiO2 of 30%. The patient is currently on 3 L of oxygen by nasal cannula. 06/16/2024, the patient is being seen for a follow-up. No new complaints. Sit ting at the edge of the bed. Remains on DuoNeb updrafts. Remains on Pulmicort Respules and Perforomist. Currently on prednisone burst taper started at a dose of 40 mg p.o. daily. Remains on Levemir insulin 35 units twice daily and NovoLog 9 units with meals and insulin scale coverage. Remains on diuretics and the patient is currently on Lasix 40 mg p.o. twice daily and Aldactone 25 mg p.o. daily. Rest of the medications remain unchanged. The patient is calm and comfortable on 3 L of oxygen by nasal cannula with a pulse ox of 98%. Fluid balance has been -1.6 L over the past 24 hours. The white cell count of 13.2 with hemoglobin 15. BUN 64 with a creatinine 1.4 and a sodium levels at 136. Renal function stable. Potassium levels are 3.9. Serum bicarbonate 25. No antibiotic coverage at this point in time. On 06/17/2024, no new complaint since the patient remains on 3 L of oxygen by nasal cannula. Sitting up in a chair. Edema lower extremities still present. White cell count of 21 with a hemoglobin of 15.6 and a platelet count of 131. Electrolytes are stable and the patient has chronic metabolic alkalosis with a serum bicarb of 36 and a BUN of 63 and a creatinine of 1.66. Medications remain unchanged. Remains on anticoagulation. Remains on Lasix 40 mg p.o. twice daily, Diamox to 50 mg p.o. twice a day and Aldactone 25 mg p.o. daily. Remains on Flomax. No respiratory distress for now. On 06/18/2024, no new complaints, the patient remains on 2 L of oxygen by nasal cannula and the medications remain essentially unchanged. Remains on Lasix and Aldactone. No antibiotic coverage. Still on anticoagulation with Eliquis. Bronchodilators are with DuoNeb updrafts and a combination of Perforomist and Pulmicort. Vitals are all stable. He is afebrile. Hemodynamically stable. No new labs are available from today. Yesterday's labs were noted. Objective - Vital Signs Vital signs: Vital Signs Temp 97.7 F 06/18/24 03:26 Pulse 94 06/18/24 08:00 Resp 16 06/18/24 08:00 BP 100/63 06/18/24 08:00 Pulse Ox 96 06/18/24 08:00 FiO2 30 06/18/24 00:26 Intake & Output 06/17/24 06/18/24 06/18/24 18:59 06:59 18:59 Intake Total 590 370 360 Output Total 400 Balance 190 370 360 Weight 154.4 kg Intake: IV 10 Invasive Line 6 10 Oral 590 360 360 Output: Urine 400 Other: Voiding Method Toilet Toilet Toilet Urinal Urinal Urinal # Voids 1 0 # Bowel Movements 0 - Exam The patient is quite confused, and agitated. Currently on nasal O2 at 3 L. HEENT examination is grossly unremarkable. Mucous membranes are moist. No oral lesions. Neck supple. Full range of motion. No adenopathy thyromegaly or neck vein distention. Cardiovascular examination reveals an irregular rhythm and rate. S1-S2 normal. No S3 or S4. No discernible murmur noted. Heart sounds are distant. Lungs reveal mostly clear breath sounds. Breath sounds are diminished. No wheezes. No rhonchi. No distinct crackles noted. Abdomen, soft but obese. Bowel sounds are noted. Extremities reveal 2+ edema, and chronic venous stasis changes. No clubbing or cyanosis. Both legs are wrapped. Skin is without rash or lesion. Neurologic examination is brief but nonfocal. - Labs CBC & Chem 7: 06/17/24 08:40 06/17/24 08:40 Labs: Abnormal Lab Results - Last 24 Hours (Table) 06/17/24 06/17/24 06/18/24 Range/Units 16:16 20:41 06:27 POC Glucose (mg/dL) 120 H 278 H 120 H (70-110) mg/dL Assessment and Plan Plan: Acute on chronic hypoxemic and hypercapnic respiratory failure, secondary to chronic diastolic CHF exacerbation, as well as COPD exacerbation. Patient is currently on 3 L of oxygen by nasal cannula. No significant respiratory distress. The patient is currently off the BiPAP. Small bilateral pleural effusions. Severe COPD, stage IV, with an FEV1 that is 22% of predicted. Obstructive sleep apnea syndrome, noncompliant with noninvasive positive pressure ventilation. Morbid obesity with a BMI of 48.7 kg/m. Stage IIIa chronic kidney disease. Atrial fibrillation. Chronic lower extremity edema. History of hypertension. History of hyperlipidemia. Former tobacco dependence. Severe cellulitis of the right lower extremity, stable, recovered Plan: No change in his condition Clinically stable will continue same treatment Patient currently on 2 L oxygen by nasal cannula Continue Lasix 40 mg p.o. twice a day Continue Diamox Continue Aldactone 25 mg p.o. daily Monitor serum bicarb Continue DuoNeb nebulized treatments [id number] in addition to a combination of Perforomist and Pulmicort updrafts Prednisone burst taper Continue the combination of metoprolol and anticoagulation with Eliquis regarding his atrial fibrillation Continue Levemir insulin 35 units twice daily along with 5 units of NovoLog with meals and sliding scale coverage Will continue to follow
[2024-06-18 20:32] LABS: Glucose,Whole Blood 284 mg/dL (70-110)
[2024-06-19 06:26] LABS: Glucose,Whole Blood 136 mg/dL (70-110)
[2024-06-19 09:22] LABS: Anisocytosis Slight; Basophils # (A) 0.1 k/uL (0-0.2); Basophils % (A) 1 %; Eosinophils # (A) 0.1 k/uL (0-0.7); Eosinophils % (A) 1 %; HCT 44.2 % (39.0-53.0); HGB 13.5 gm/dL (13.0-17.5); Hypochromasia Marked; Lymphocytes # (A) 0.4 k/uL (1.0-4.8); Lymphocytes % (A) 3 %; MCH 28.4 pg (25.0-35.0); MCHC 30.5 g/dL (31.0-37.0); MCV 93.2 fL (80.0-100.0); Monocytes # (A) 0.6 k/uL (0-1.0); Monocytes % (A) 4 %; Neutrophils # (A) 11.8 k/uL (1.3-7.7); Neutrophils % (A) 90 %; Platelet Count 129 k/uL (150-450); RBC 4.74 m/uL (4.30-5.90); RDW 16.9 % (11.5-15.5); WBC 13.1 k/uL (3.8-10.6)
[2024-06-19 09:29] LABS: African American GFR (CKD) 63 (>60 ml/min/1.73 sqM); Anion Gap 3 mmol/L; Blood Urea Nitrogen 57 mg/dL (9-20); Calcium 7.9 mg/dL (8.4-10.2); Carbon Dioxide 37 mmol/L (22-30); Chloride 94 mmol/L (98-107); Glucose 128 mg/dL (74-99); Non-African American GFR(CKD) 55 (>60 ml/min/1.73 sqM); Potassium 4.2 mmol/L (3.5-5.1); Sodium 134 mmol/L (137-145)
[2024-06-19 11:24] LABS: Glucose,Whole Blood 146 mg/dL (70-110)
--- NOTE | 2024-06-19 15:14 | P.PN ---
Subjective Progress Note Date: 06/19/24 This is a 59-year-old white male familiar to my service, known history of multiple medical problems including severe end-stage COPD, obstructive sleep apnea syndrome, BiPAP dependent almost, history of chronic hypoxic and chronic hypercapnic respiratory failure, patient is frequently in the hospital with similar presentation each time. This time he was seen in the ER with worsening shortness of breath, and he noted that his O2 saturation has been getting less and less, patient is known to be noncompliant at times with his BiPAP. At any rate patient was seen in the ER, ABG showed relative hypoxia with a pO2 of 63 on 35% FiO2 84 pH of 7.24 patient had positive drug screen for oxycodone and benzod iazepines, patient was placed on BiPAP and I saw him in the ER, recommended that the patient goes on his usual treatment with bronchodilators, BiPAP, and diuretics. Patient himself is not a great historian and he was not a great historian today when I saw him in the ER as he was hypercapnic on BiPAP, lethargic but arousable and did not follow much instructions labs showed normal CBC, abnormal ABG as noted earlier, Bicarb of 39 BUN 55 creatinine 1.81 elevated BNP level, and chest x-ray showing evidence of pulmonary edema Patient was seen today on 06/06/2024, feeling a bit better today, breathing easier, patient is on bronchodilators and is also on BiPAP intermittently, now on 3 L nasal cannula does not seem to be in any distress, remains on diuretics for his congestive heart failure. Improving and he is almost back to baseline. WBC is 4.2 hemoglobin 13.1 electrolytes are normal bicarb is 38 BUN is 49 creatinine 1.58 Seen today on 06/07/2024, patient is doing well today, less shortness of breath less cough, no wheezing, no chest pain, no fever, no chills, no hemoptysis presently on 3 L nasal cannula, and his O2 saturation is 100% hemodynamically stable blood pressure is 116/73. WBC count is 7.5 hemoglobin is 15.2 basic metabolic profile is normal bicarb is 36 BUN 50 creatinine 1.55, steadily improving compared to creatinine of 1.81 on admission Progress note dated June 08, 2024. The patient is seen in room 350. He continues on oxygen at 4 L. No IV fluids. The use of BiPAP, last night, only for short period of time, because apparently caused a nosebleed. His BiPAP settings were seen over 6, 35%. He is sitting on the side of the bed. In no distress. Current labs include sodium 136, potassium 4.7, chlorides 90, CO2 34, BUN 57, and creatinine 1.92. Glucose is 243. Calcium is 8.5. Progress note dated June 09, 2024. 59-year-old male seen today in room 350. The patient remains on nasal O2 at 3 L. He did use a BiPAP for 5 hours last night, with settings of 16/6, 35%. He is not receiving any IV fluids. He is feeling about the same. No new labs tod ay other than a glucose of 210. Progress note dated June 10, 2024. 59-year-old male seen today in room 350. The patient is doing about the same. The nurses asked whether or not he could be discharged, and from our perspective, he can be. He is on BiPAP at 16/6, 35% in the evening. During the daytime, he is on nasal O2, 2 L. He is not receiving any IV fluids. He has no new complaints today. Sodium 136, potassium 4.6, chlorides 95, CO2 39, BUN 67, creatinine 1.83. Glucose is 319. Progress note dated June 11, 2024. 59-year-old male with a history of severe COPD. The patient was being managed up on the third floor, but this morning apparently became very agitated. He was pulling off his BiPAP. Saturations were quite low. The patient was transferred to the intensive care unit, for further monitoring and management. A blood gas was done showing a pO2 of 78, pCO2 of 46, pH of 7.41. BiPAP settings of 16/6, and 35%. Is not receiving any IV fluids. The patient is a DO NOT RESUSCITATE patient. I have added Ativan 1 mg IV every 6 hours, and Haldol 48 mg IM or IV, every 4 hours as needed. The patient is quite agitated. Sodium 135, potassium 4.6, chlorides 96, CO2 31, BUN 73, creatinine 1.61. Glucose is 218. Calcium is 8.8. Chest x-ray shows evidence of cardiomegaly, and some pulmonary vascular congestion. Progress note dated June 12, 2024. 59-year-old male who is again seen in room 253. The patient currently is on BiPAP. BiPAP settings are 16/6, 35%. Will drop the FiO2 down to 30%. He is not receiving any IV fluids. According to the nurse, the patient had a uneventful night last night. Current labs include a white count 8.8, hemoglobin 13.5, hematocrit 43.3, platelet count 91,000. Sodium 138, potassium 3.9, chlorides 98, CO2 37, BUN 66, creatinine 1.56. Glucose is 292. Calcium 8.1. Chest x-ray shows mild bibasilar infiltrates, consistent with atelectasis. Progress note dated June 13, 2024. 59-year-old male seen again in room 253. Yesterday, when I saw him in the morning, he was on BiPAP. Apparently throughout the day he was on 2 L. Overnight, he continues on BiPAP at 16/6, and 30%. He is not receiving any IV fluids. According to the nurses he had a pretty uneventful day yesterday. White count is 10.4, hemoglobin 13.8, hematocrit 44.4, platelet count 73,000. Sodium 133, potassium 3.6, chlorides 99, CO2 33, BUN 60, creatinine 1.44. Glucose is 266. Calcium is 8.3. No chest x-ray today. Progress note dated June 14, 2024. 59-year-old obese male, seen in room 385. The patient was in the intensive care unit, for a number of days, for worsening respiratory failure. I believe that this patient occasionally will either not wear his BiPAP device, or he takes it off, while he is sleeping, becomes more hypoxemic and hypercapnic, which creates agitation, and confusion. Currently, he is on 2 L of nasal oxygen. While on BiPAP, his settings are 16/6, 30%. The patient is not receiving any IV fluids. He is resting comfortably in bed. He has severe COPD with an FEV1 that is less than 20% of predicted. Current labs include a white count 8.8, hemoglobin 14.2, hematocrit 46, and a platelet count of 77,000. Sodium 134, potassium 4, chloride 97, CO2 33, BUN 64, creatinine 1.44. Glucose is 383. Calcium is 8.3. On 06/15/2024, the patient is doing well. No specific complaints. He is on 2 L of oxygen by nasal cannula with a pulse ox of 99 to 100%. No significant cough sputum production chest tightness or wheezing. Continues to have some edema lower extremities bilaterally. Remains on DuoNeb the regiment [id number]. Remains on IV Solu-Medrol 40 mg every 12 hours regarding history of the exacerbation the patient is also on a combination of Perforomist and Pulmicort updrafts twice a day. He is on Aldactone 25 mg p.o. daily. He is also on Lasix 40 mg p.o. twice daily and Diamox to 50 mg p.o. twice a day. Remains on metoprolol 200 mg p.o. daily in the morning and 200 mg at bedtime. Rest of the medications remain unchanged. White cell count of 12.3 with a hemoglobin 15.2 and a platelet count of 96. BUN 65 with a creatinine of 1.37 and sodium levels at 133. Glucose levels are slightly elevated and the patient is on Levemir insulin 35 units twice a day and NovoLog 5 units with meal and sliding scale coverage. The patient also has a BiPAP at the bedside which she is using overnight at a pressure of 16/6 with a FiO2 of 30%. The patient is currently on 3 L of oxygen by nasal cannula. 06/16/2024, the patient is being seen for a follow-up. No new complaints. Sit ting at the edge of the bed. Remains on DuoNeb updrafts. Remains on Pulmicort Respules and Perforomist. Currently on prednisone burst taper started at a dose of 40 mg p.o. daily. Remains on Levemir insulin 35 units twice daily and NovoLog 9 units with meals and insulin scale coverage. Remains on diuretics and the patient is currently on Lasix 40 mg p.o. twice daily and Aldactone 25 mg p.o. daily. Rest of the medications remain unchanged. The patient is calm and comfortable on 3 L of oxygen by nasal cannula with a pulse ox of 98%. Fluid balance has been -1.6 L over the past 24 hours. The white cell count of 13.2 with hemoglobin 15. BUN 64 with a creatinine 1.4 and a sodium levels at 136. Renal function stable. Potassium levels are 3.9. Serum bicarbonate 25. No antibiotic coverage at this point in time. On 06/17/2024, no new complaint since the patient remains on 3 L of oxygen by nasal cannula. Sitting up in a chair. Edema lower extremities still present. White cell count of 21 with a hemoglobin of 15.6 and a platelet count of 131. Electrolytes are stable and the patient has chronic metabolic alkalosis with a serum bicarb of 36 and a BUN of 63 and a creatinine of 1.66. Medications remain unchanged. Remains on anticoagulation. Remains on Lasix 40 mg p.o. twice daily, Diamox to 50 mg p.o. twice a day and Aldactone 25 mg p.o. daily. Remains on Flomax. No respiratory distress for now. On 06/18/2024, no new complaints, the patient remains on 2 L of oxygen by nasal cannula and the medications remain essentially unchanged. Remains on Lasix and Aldactone. No antibiotic coverage. Still on anticoagulation with Eliquis. Bronchodilators are with DuoNeb updrafts and a combination of Perforomist and Pulmicort. Vitals are all stable. He is afebrile. Hemodynamically stable. No new labs are available from today. Yesterday's labs were noted. On 06/19/2024, the patient is stable. No changes condition. No change in medication. He is on a prednisone burst taper starting with 40 mg p.o. daily. Remains on the same diuretic regimen. Chronic lower extremity edema. Right lower extremity is wrapped. BUN is 57 with a creatinine of 1.39 and the patient has a sodium level of 134 with a potassium level of 4.2. CBC shows a drop in the white cell count down to 13.1 with a heme of 17.5 and a platelet count of 129. Respiratory status is stable and the patient remains on oxygen and the flow is ranging between 2 and 5 L/min nasal cannula. No respiratory distress. Tolerating diet. Objective - Vital Signs Vital signs: Vital Signs Temp 97.5 F L 06/19/24 11:51 Pulse 85 06/19/24 11:51 Resp 16 06/19/24 11:51 BP 99/65 06/19/24 11:51 Pulse Ox 96 06/19/24 11:51 FiO2 30 06/19/24 11:17 Intake & Output 06/18/24 06/19/24 06/19/24 18:59 06:59 18:59 Intake Total 1200 780 357 Output Total 1800 600 Balance -600 180 357 Weight 155 kg Intake: Oral 1200 780 357 Output: Urine 1800 600 Other: Voiding Method Toilet Toilet Toilet Urinal Urinal Urinal # Voids 0 # Bowel Movements 0 - Exam The patient is quite confused, and agitated. Currently on nasal O2 at 3 L. HEENT examination is grossly unremarkable. Mucous membranes are moist. No oral lesions. Neck supple. Full range of motion. No adenopathy thyromegaly or neck vein distention. Cardiovascular examination reveals an irregular rhythm and rate. S1-S2 normal. No S3 or S4. No discernible murmur noted. Heart sounds are distant. Lungs reveal mostly clear breath sounds. Breath sounds are diminished. No wheezes. No rhonchi. No distinct crackles noted. Abdomen, soft but obese. Bowel sounds are noted. Extremities reveal 2+ edema, and chronic venous stasis changes. No clubbing or cyanosis. Both legs are wrapped. Skin is without rash or lesion. Neurologic examination is brief but nonfocal. - Labs CBC & Chem 7: 06/19/24 08:48 06/19/24 08:48 Labs: Abnormal Lab Results - Last 24 Hours (Table) 06/18/24 06/18/24 06/19/24 Range/Units 16:53 20:31 06:24 WBC (3.8-10.6) k/uL MCHC (31.0-37.0) g/dL RDW (11.5-15.5) % Plt Count (150-450) k/uL Neutrophils # (1.3-7.7) k/uL Lymphocytes # (1.0-4.8) k/uL Sodium (137-145) mmol/L Chloride (98-107) mmol/L Carbon Dioxide (22-30) mmol/L BUN (9-20) mg/dL Creatinine (0.66-1.25) mg/dL Glucose (74-99) mg/dL POC Glucose (mg/dL) 127 H 284 H 136 H (70-110) mg/dL Calcium (8.4-10.2) mg/dL 06/19/24 06/19/24 06/19/24 Range/Units 08:48 08:48 11:20 WBC 13.1 H (3.8-10.6) k/uL MCHC 30.5 L (31.0-37.0) g/dL RDW 16.9 H (11.5-15.5) % Plt Count 129 L (150-450) k/uL Neutrophils # 11.8 H (1.3-7.7) k/uL Lymphocytes # 0.4 L (1.0-4.8) k/uL Sodium 134 L (137-145) mmol/L Chloride 94 L (98-107) mmol/L Carbon Dioxide 37 H (22-30) mmol/L BUN 57 H (9-20) mg/dL Creatinine 1.39 H (0.66-1.25) mg/dL Glucose 128 H (74-99) mg/dL POC Glucose (mg/dL) 146 H (70-110) mg/dL Calcium 7.9 L (8.4-10.2) mg/dL Assessment and Plan Plan: Acute on chronic hypoxemic and hypercapnic respiratory failure, secondary to chronic diastolic CHF exacerbation, as well as COPD exacerbation. Patient is currently on 2-5 L of oxygen by nasal cannula. No significant respiratory distress. The patient is currently off the BiPAP. Small bilateral pleural effusions. Severe COPD, stage IV, with an FEV1 that is 22% of predicted. Obstructive sleep apnea syndrome, noncompliant with noninvasive positive pressure ventilation. Morbid obesity with a BMI of 48.7 kg/m. Stage IIIa chronic kidney disease. Atrial fibrillation. Chronic lower extremity edema. History of hypertension. History of hyperlipidemia. Former tobacco dependence. Severe cellulitis of the right lower extremity, stable, recovered Plan: No change in his condition Clinically stable will continue same treatment Patient currently on 5 L O2 nasal cannula Continue Lasix 40 mg p.o. twice a day Continue Diamox Continue Aldactone 25 mg p.o. daily Monitor serum bicarb Continue DuoNeb nebulized treatments [id number] in addition to a combination of Perforomist and Pulmicort updrafts Prednisone burst taper Continue the combination of metoprolol and anticoagulation with Eliquis regarding his atrial fibrillation Continue Levemir insulin 35 units twice daily along with 5 units of NovoLog with meals and sliding scale coverage Will continue to follow
[2024-06-19 16:47] LABS: Glucose,Whole Blood 184 mg/dL (70-110)
[2024-06-19 20:34] LABS: Glucose,Whole Blood 307 mg/dL (70-110)
--- NOTE | 2024-06-20 00:05 | P.PN ---
Subjective Progress Note Date: 06/17/24 59-year-old male, history of hypertension, hyperlipidemia, atrial fibrillation, asthma/COPD, sleep apnea, who comes from the senior care because he was more lethargic and his pulse ox was low at the senior care. Patient normally is on 2 L of oxygen at home. Patient himself wakes up and has no complaints however he is quick to go back to sleep. Patient has had no history of fever or chills patient denied any chest pain or palpitation. Patient has any abdominal pain patient has nausea vomiting diarrhea Blood work reveals WBC of 5.3, hemoglobin of 13.6 and platelet count of 144, sodium 138, potassium 4.6, BUNs/creatinine of 55/1.8 and blood glucose of 155, magnesium elevated at 2.5, lactic acid level of 1.5, troponin 0.023, ABG reveals pH of 7.24, pCO2 of 84, pO2 of 63; patient is admitted for further treatment for pulmonary edema hypercapnia Chest x-ray completed in ED reveals pulmonary edema 24-hour interval change 06/07/2024, -Patient is seen and evaluated in room at bedside; patient is doing well today, less shortness of breath less cough, no wheezing, no chest pain, no fever, no c hills, no hemoptysis --presently on 3 L nasal cannula, and his O2 saturation is 100% hemodynamically stable blood pressure is 116/73. Review shows WBC count is 7.5 hemoglobin is 15.2 basic metabolic profile is normal bicarb is 36 BUN 50 creatinine 1.55, steadily improving compared to creatinine of 1.81 on admission Continue bronchodilators and methylprednisolone 40 mg IV every 8 hours Continue diuretics, Lasix 40 mg IV push every 8 hours, continue Diamox to 50 mg p.o. twice daily Continue amiodarone and Eliquis 06/08 Patient is awake alert, sitting at the bedside, looks tired. Patient has been using BiPAP machine all night but he could not sleep well because of frequent epistaxis happened last night. Currently epistaxis is stopped. No other bleeding from anywhere else. No headache dizziness or new weakness numbness. No chest pain. He still complaining from dyspnea but improving, leg swelling is better. No other GI/ symptom He is currently on 4 L oxygen via nasal cannula, at home he was using 2 L. I discussed the risk and benefits of anticoagulation including Eliquis and he agrees. Eliquis was resumed and we will going to monitor for bleeding. He is currently on Protonix 40 mg p.o. daily 06/09 Patient still with breathing difficulty. He is not in respiratory distress while at rest but he has still has limited air entry in both sides. He is using BiPAP overnight IV Lasix lowered to twice daily. Creatinine was 1.9. Check creatinine tomorrow Metoprolol dose increased 150 twice daily and to 200 mg in the morning and 200 mg in the evening Patient also remains on IV Solu-Medrol 40 mg Echocardiogram done yesterday showing ejection fraction of 60 to 65%, it was suboptimal study 06/10 Patient overall doing okay His breathing is quiet but looks at baseline. He is currently on 3 L of oxygen which is same home dose of 2-3. Patient confirms to me he has a concentrator and machine at home for his oxygen. Also he confirms to me he has Eliquis at home. Patient adamant not to go to subacute rehab, he says he had bad experience last time. Patient thus will be discharged home with home care. However multiple home agency rejected the patient. We will discussed with the patient and still recommend to go to subacute rehab if he agrees He has superficial wound on the tip of his right second toe. Wound consult is requested Overall doing well. Pulmonary team cleared him for discharge. [employer] team recommend to monitor him 1 more day. After his IV Lasix switched to oral dose. Will monitor creatinine tomorrow Possible discharge in 24 to 48 hours 06/11 Patient was quite agitated overnight, he was hypoxic. He was transferred to the ICU after given some sedatives and placed back on BiPAP. Currently tolerating diet well and his oxygenation is improved Metoprolol dose was increased to 200 mg daily. Repeat chest x-ray showed cardiomegaly with pulm pulmonary vascular congestion, mild He remains on IV Solu-Medrol 60 mg. Normal Saline 75 mL started 06/12 Patient is still in the ICU, on BiPAP with a setting of 16/6 and FiO2 of 30% He is calm not agitated. Patient did not need extra doses of Haldol or Ativan He denies chest pain or any other new complaint He still adamant not to go To subacute rehab upon discharge despite the risk of noncompliance with BiPAP and other medical management 06/13 : Patient seen and evaluated bedside, patient transferred out of ICU, continue to have lower extremity edema, blood work reviewed platelets 73, serum chemistry sodium 133 potassium 3.6 creatinine 1.44, blood glucose in 300 06/14- patient seen and evaluated at bedside, patient remains on 2 L of oxygen, noted to have temp of 97.5 early in the morning. CBC reviewed WBC 8.8 platelet count of 77, serum chemistry sodium 134 potassium 4 creatinine 1.44, will increase dose of Lantus to 26 units twice daily, steroid wean down 06/15/2024 Patient is lying in the bed. Awake alert and oriented x 3. Requiring 2 L oxygen via nasal cannula. No complaints of chest pain or worsening shortness of breath. Still having bilateral lower extremity swelling and chronic venous stasis changes. No drainage from the leg wounds. Otherwise patient is being continued on Lasix 40 mg p.o. twice daily. He is also on IV Solu-Medrol, changed to prednisone 40 mg daily. Continue on DuoNebs and insulin regimen. Laboratory data showed WBC 12.3 hemoglobin 15.2 and platelets 96 sodium 133 potassium 4.7 chloride 97 bicarb is 30 BUN 65 and creatinine 1.37 and blood sugar 346. Calcium 8.5. Cardiology and pulmonary is on board. 06/16/2024 Patient is currently resting in the bed. Awake alert and oriented x 3. On oxygen at 3 L via nasal cannula. Patient required BiPAP last night. Denies any complaints of chest pain. Breathing status is slightly better. Bilateral leg swelling is still present. No cough or sputum production. Patient has been afebrile. Patient is being continued on IV Solu-Medrol changed to p.o. prednisone. Co ntinue on DuoNebs. Blood sugars controlled with insulin regimen. Laboratory data showed WBC 13.2 hemoglobin 15.0 and platelets 123 sodium 136 potassium 3.9 chloride 97 bicarb 35 BUN 64 and creatinine 1.44 and blood sugar 167 calcium 8.1. Pulmonary is on board. 06/17/2024 Patient is currently sitting on side of the bed. Awake alert and oriented. No complaints of chest pain or worsening shortness of breath. Patient still having bilateral lower extremity swelling and chronic venous stasis changes. No drainage from the wounds. Patient has been afebrile. Continued on oral diureti cs with Lasix and Aldactone. Also on Diamox. Laboratory data showed WBC 21.6 hemoglobin 13.6 and platelets 131 neutrophils 19.6 sodium 135 potassium 4.3 chloride 95 bicarb 36 BUN 16 creatinine 1.66 and calcium 8.5. PHYSICAL EXAMINATION: GENERAL: The patient is alert and oriented x3, morbidly obese HEENT: Pupils are round and equally reacting to light. EOMI. CARDIOVASCULAR: S1 and S2 present. No murmurs, rubs, or gallops. PULMONARY: Chest is clear to auscultation, no wheezing or crackles. ABDOMEN: Soft, nontender, nondistended, normoactive bowel sounds. No palpable organomegaly. MUSCULOSKELETAL: No joint swelling or deformity. EXTREMITIES: Bilateral lower extremity swelling and venous stasis changes. NEUROLOGICAL: Gross neurological examination did not reveal any focal deficits. SKIN: Bilateral lower extremity edema, wound bandage Objective - Vital Signs Vital signs: Vital Signs Temp 97.6 F 06/17/24 19:58 Pulse 86 06/17/24 21:14 Resp 20 06/17/24 19:58 BP 107/65 06/17/24 19:58 Pulse Ox 95 06/17/24 19:58 FiO2 30 06/17/24 02:47 Intake & Output 06/17/24 06/17/24 06/18/24 06:59 18:59 06:59 Intake Total 237 590 Output Total 650 400 Balance -413 190 Weight 154.5 kg Intake: Oral 237 590 Output: Urine 650 400 Other: Voiding Method Toilet Toilet Toilet Urinal Urinal Urinal # Voids 1 - Labs CBC & Chem 7: 06/19/24 08:48 06/19/24 08:48 Labs: Abnormal Lab Results - Last 24 Hours (Table) 06/17/24 06/17/24 06/17/24 Range/Units 01:39 06:20 07:59 WBC (3.8-10.6) k/uL RDW (11.5-15.5) % Plt Count (150-450) k/uL Neutrophils # (1.3-7.7) k/uL Lymphocytes # (1.0-4.8) k/uL Monocytes # (0-1.0) k/uL Sodium (137-145) mmol/L Chloride (98-107) mmol/L Carbon Dioxide (22-30) mmol/L BUN (9-20) mg/dL Creatinine (0.66-1.25) mg/dL POC Glucose (mg/dL) 169 H 140 H 146 H (70-110) mg/dL Calcium (8.4-10.2) mg/dL 06/17/24 06/17/24 06/17/24 Range/Units 08:40 08:40 11:07 WBC 21.6 H (3.8-10.6) k/uL RDW 16.7 H (11.5-15.5) % Plt Count 131 L (150-450) k/uL Neutrophils # 19.6 H (1.3-7.7) k/uL Lymphocytes # 0.6 L (1.0-4.8) k/uL Monocytes # 1.2 H (0-1.0) k/uL Sodium 135 L (137-145) mmol/L Chloride 95 L (98-107) mmol/L Carbon Dioxide 36 H (22-30) mmol/L BUN 63 H (9-20) mg/dL Creatinine 1.66 H (0.66-1.25) mg/dL POC Glucose (mg/dL) 117 H (70-110) mg/dL Calcium 8.2 L (8.4-10.2) mg/dL 06/17/24 06/17/24 Range/Units 16:16 20:41 WBC (3.8-10.6) k/uL RDW (11.5-15.5) % Plt Count (150-450) k/uL Neutrophils # (1.3-7.7) k/uL Lymphocytes # (1.0-4.8) k/uL Monocytes # (0-1.0) k/uL Sodium (137-145) mmol/L Chloride (98-107) mmol/L Carbon Dioxide (22-30) mmol/L BUN (9-20) mg/dL Creatinine (0.66-1.25) mg/dL POC Glucose (mg/dL) 120 H 278 H (70-110) mg/dL Calcium (8.4-10.2) mg/dL Assessment and Plan Assessment: Assessment: * acute on chronic hypoxic hypercapnic respiratory failure * acute exacerbation of congestive heart failure diastolic dysfunction * Acute COPD exacerbation * chronic atrial fibrillation with controlled ventricular response * obstructive sleep apnea * history of hypertension * history of hyperlipidemia * BPH * diabetes mellitus type 2 on insulin * history of noncompliant * Morbid obesity BMI 44.8 Plan: patient is currently in the medical floor. Patient is on 3 L via nasal cannula. BiPAP as needed. in regards to CHF exacerbation continue patient on Lasix, continue to monitor intake and output, continue Aldactone. Patient is also on Diamox. in regards to COPD exacerbation continue breathing treatment IV Solu-Medrol, wean down from 60mg every 6hr to prednisone 40mg daily. Pulmonary medicine following in regards to diabetes mellitus continue Accu-Cheks continue insulin correctional and Levemir monitor for hypoglycemia, dose of Lantus increased secondary to hyperglycemia. in regards to atrial fibrillation anticoagulation with Eliquis, continue rate control with metoprolol, amiodarone discontinued by cardiology during this hospitalization in regards to BPH continue Flomax DVT prophylaxis: Eliquis GI Prophylaxis: Protonix Time with Patient: Greater than 30
--- NOTE | 2024-06-20 00:06 | P.PN ---
Subjective Progress Note Date: 06/18/24 59-year-old male, history of hypertension, hyperlipidemia, atrial fibrillation, asthma/COPD, sleep apnea, who comes from the skilled nursing because he was more lethargic and his pulse ox was low at the skilled nursing. Patient normally is on 2 L of oxygen at home. Patient himself wakes up and has no complaints however he is quick to go back to sleep. Patient has had no history of fever or chills patient denied any chest pain or palpitation. Patient has any abdominal pain patient has nausea vomiting diarrhea Blood work reveals WBC of 5.3, hemoglobin of 13.6 and platelet count of 144, sodium 138, potassium 4.6, BUNs/creatinine of 55/1.8 and blood glucose of 155, magnesium elevated at 2.5, lactic acid level of 1.5, troponin 0.023, ABG reveals pH of 7.24, pCO2 of 84, pO2 of 63; patient is admitted for further treatment for pulmonary edema hypercapnia Chest x-ray completed in ED reveals pulmonary edema 24-hour interval change 06/07/2024, -Patient is seen and evaluated in room at bedside; patient is doing well today, less shortness of breath less cough, no wheezing, no chest pain, no fever, no c hills, no hemoptysis --presently on 3 L nasal cannula, and his O2 saturation is 100% hemodynamically stable blood pressure is 116/73. Review shows WBC count is 7.5 hemoglobin is 15.2 basic metabolic profile is normal bicarb is 36 BUN 50 creatinine 1.55, steadily improving compared to creatinine of 1.81 on admission Continue bronchodilators and methylprednisolone 40 mg IV every 8 hours Continue diuretics, Lasix 40 mg IV push every 8 hours, continue Diamox to 50 mg p.o. twice daily Continue amiodarone and Eliquis 06/08 Patient is awake alert, sitting at the bedside, looks tired. Patient has been using BiPAP machine all night but he could not sleep well because of frequent epistaxis happened last night. Currently epistaxis is stopped. No other bleeding from anywhere else. No headache dizziness or new weakness numbness. No chest pain. He still complaining from dyspnea but improving, leg swelling is better. No other GI/ symptom He is currently on 4 L oxygen via nasal cannula, at home he was using 2 L. I discussed the risk and benefits of anticoagulation including Eliquis and he agrees. Eliquis was resumed and we will going to monitor for bleeding. He is currently on Protonix 40 mg p.o. daily 06/09 Patient still with breathing difficulty. He is not in respiratory distress while at rest but he has still has limited air entry in both sides. He is using BiPAP overnight IV Lasix lowered to twice daily. Creatinine was 1.9. Check creatinine tomorrow Metoprolol dose increased 150 twice daily and to 200 mg in the morning and 200 mg in the evening Patient also remains on IV Solu-Medrol 40 mg Echocardiogram done yesterday showing ejection fraction of 60 to 65%, it was suboptimal study 06/10 Patient overall doing okay His breathing is quiet but looks at baseline. He is currently on 3 L of oxygen which is same home dose of 2-3. Patient confirms to me he has a concentrator and machine at home for his oxygen. Also he confirms to me he has Eliquis at home. Patient adamant not to go to subacute rehab, he says he had bad experience last time. Patient thus will be discharged home with home care. However multiple home agency rejected the patient. We will discussed with the patient and still recommend to go to subacute rehab if he agrees He has superficial wound on the tip of his right second toe. Wound consult is requested Overall doing well. Pulmonary team cleared him for discharge. [facility] [employer] team recommend to monitor him 1 more day. After his IV Lasix switched to oral dose. Will monitor creatinine tomorrow Possible discharge in 24 to 48 hours 06/11 Patient was quite agitated overnight, he was hypoxic. He was transferred to the ICU after given some sedatives and placed back on BiPAP. Currently tolerating diet well and his oxygenation is improved Metoprolol dose was increased to 200 mg daily. Repeat chest x-ray showed cardiomegaly with pulm pulmonary vascular congestion, mild He remains on IV Solu-Medrol 60 mg. Normal Saline 75 mL started 06/12 Patient is still in the ICU, on BiPAP with a setting of 16/6 and FiO2 of 30% He is calm not agitated. Patient did not need extra doses of Haldol or Ativan He denies chest pain or any other new complaint He still adamant not to go To subacute rehab upon discharge despite the risk of noncompliance with BiPAP and other medical management 06/13 : Patient seen and evaluated bedside, patient transferred out of ICU, continue to have lower extremity edema, blood work reviewed platelets 73, serum chemistry sodium 133 potassium 3.6 creatinine 1.44, blood glucose in 300 06/14- patient seen and evaluated at bedside, patient remains on 2 L of oxygen, noted to have temp of 97.5 early in the morning. CBC reviewed WBC 8.8 platelet count of 77, serum chemistry sodium 134 potassium 4 creatinine 1.44, will increase dose of Lantus to 26 units twice daily, steroid wean down 06/15/2024 Patient is lying in the bed. Awake alert and oriented x 3. Requiring 2 L oxygen via nasal cannula. No complaints of chest pain or worsening shortness of breath. Still having bilateral lower extremity swelling and chronic venous stasis changes. No drainage from the leg wounds. Otherwise patient is being continued on Lasix 40 mg p.o. twice daily. He is also on IV Solu-Medrol, changed to prednisone 40 mg daily. Continue on DuoNebs and insulin regimen. Laboratory data showed WBC 12.3 hemoglobin 15.2 and platelets 96 sodium 133 potassium 4.7 chloride 97 bicarb is 30 BUN 65 and creatinine 1.37 and blood sugar 346. Calcium 8.5. Cardiology and pulmonary is on board. 06/16/2024 Patient is currently resting in the bed. Awake alert and oriented x 3. On oxygen at 3 L via nasal cannula. Patient required BiPAP last night. Denies any complaints of chest pain. Breathing status is slightly better. Bilateral leg swelling is still present. No cough or sputum production. Patient has been afebrile. Patient is being continued on IV Solu-Medrol changed to p.o. prednisone. Co ntinue on DuoNebs. Blood sugars controlled with insulin regimen. Laboratory data showed WBC 13.2 hemoglobin 15.0 and platelets 123 sodium 136 potassium 3.9 chloride 97 bicarb 35 BUN 64 and creatinine 1.44 and blood sugar 167 calcium 8.1. Pulmonary is on board. 06/17/2024 Patient is currently sitting on side of the bed. Awake alert and oriented. No complaints of chest pain or worsening shortness of breath. Patient still having bilateral lower extremity swelling and chronic venous stasis changes. No drainage from the wounds. Patient has been afebrile. Continued on oral diureti cs with Lasix and Aldactone. Also on Diamox. Laboratory data showed WBC 21.6 hemoglobin 13.6 and platelets 131 neutrophils 19.6 sodium 135 potassium 4.3 chloride 95 bicarb 36 BUN 16 creatinine 1.66 and calcium 8.5. 06/18/2024 Patient is resting in the bed. Awake alert and oriented. No complaints of chest pain. Requiring oxygen 2 L via nasal cannula. No cough or sputum production. Bilateral lower extremity swelling and chronic venous stasis changes. Continue on oral diuresis. No new laboratory data today. Pulmonary is on board. Blood sugar is fairly controlled. Continued on prednisone 40 mg daily along with breathing treatments. PHYSICAL EXAMINATION: GENERAL: The patient is alert and oriented x3, morbidly obese HEENT: Pupils are round and equally reacting to light. EOMI. CARDIOVASCULAR: S1 and S2 present. No murmurs, rubs, or gallops. PULMONARY: Chest is clear to auscultation, no wheezing or crackles. ABDOMEN: Soft, nontender, nondistended, normoactive bowel sounds. No palpable organomegaly. MUSCULOSKELETAL: No joint swelling or deformity. EXTREMITIES: Bilateral lower extremity swelling and venous stasis changes. NEUROLOGICAL: Gross neurological examination did not reveal any focal deficits. SKIN: Bilateral lower extremity edema, wound bandage Objective - Vital Signs Vital signs: Vital Signs Temp 97.7 F 06/18/24 03:26 Pulse 86 06/18/24 15:51 Resp 16 06/18/24 15:19 BP 120/68 06/18/24 15:19 Pulse Ox 98 06/18/24 15:19 FiO2 30 06/18/24 00:26 Intake & Output 06/18/24 06/18/24 06/19/24 06:59 18:59 06:59 Intake Total 370 1200 Output Total 1800 Balance 370 -600 Weight 154.4 kg Intake: IV 10 Invasive Line 6 10 Oral 360 1200 Output: Urine 1800 Other: Voiding Method Toilet Toilet Urinal Urinal # Voids 1 0 # Bowel Movements 0 - Labs CBC & Chem 7: 06/19/24 08:48 06/19/24 08:48 Labs: Abnormal Lab Results - Last 24 Hours (Table) 06/17/24 06/18/24 06/18/24 Range/Units 20:41 06:27 16:53 POC Glucose (mg/dL) 278 H 120 H 127 H (70-110) mg/dL Assessment and Plan Assessment: Assessment: * acute on chronic hypoxic hypercapnic respiratory failure * acute exacerbation of congestive heart failure diastolic dysfunction * Acute COPD exacerbation * chronic atrial fibrillation with controlled ventricular response * obstructive sleep apnea * history of hypertension * history of hyperlipidemia * BPH * diabetes mellitus type 2 on insulin * history of noncompliant * Morbid obesity BMI 44.8 Plan: patient is currently in the medical floor. Patient is on 2-3 L via nasal cannula. BiPAP as needed. in regards to CHF exacerbation continue patient on Lasix, continue to monitor intake and output, continue Aldactone. Patient is also on Diamox. in regards to COPD exacerbation continue breathing treatment IV Solu-Medrol, wean down from 60mg every 6hr to prednisone 40mg daily. Pulmonary medicine following in regards to diabetes mellitus continue Accu-Cheks continue insulin correc tional and Levemir monitor for hypoglycemia, dose of Lantus increased secondary to hyperglycemia. in regards to atrial fibrillation anticoagulation with Eliquis, continue rate control with metoprolol, amiodarone discontinued by cardiology during this hospitalization in regards to BPH continue Flomax DVT prophylaxis: Eliquis GI Prophylaxis: Protonix Time with Patient: Greater than 30
--- NOTE | 2024-06-20 00:09 | P.PN ---
Subjective Progress Note Date: 06/19/24 59-year-old male, history of hypertension, hyperlipidemia, atrial fibrillation, asthma/COPD, sleep apnea, who comes from the longterm because he was more lethargic and his pulse ox was low at the longterm. Patient normally is on 2 L of oxygen at home. Patient himself wakes up and has no complaints however he is quick to go back to sleep. Patient has had no history of fever or chills patient denied any chest pain or palpitation. Patient has any abdominal pain patient has nausea vomiting diarrhea Blood work reveals WBC of 5.3, hemoglobin of 13.6 and platelet count of 144, sodium 138, potassium 4.6, BUNs/creatinine of 55/1.8 and blood glucose of 155, magnesium elevated at 2.5, lactic acid level of 1.5, troponin 0.023, ABG reveals pH of 7.24, pCO2 of 84, pO2 of 63; patient is admitted for further treatment for pulmonary edema hypercapnia Chest x-ray completed in ED reveals pulmonary edema 24-hour interval change 06/07/2024, -Patient is seen and evaluated in room at bedside; patient is doing well today, less shortness of breath less cough, no wheezing, no chest pain, no fever, no c hills, no hemoptysis --presently on 3 L nasal cannula, and his O2 saturation is 100% hemodynamically stable blood pressure is 116/73. Review shows WBC count is 7.5 hemoglobin is 15.2 basic metabolic profile is normal bicarb is 36 BUN 50 creatinine 1.55, steadily improving compared to creatinine of 1.81 on admission Continue bronchodilators and methylprednisolone 40 mg IV every 8 hours Continue diuretics, Lasix 40 mg IV push every 8 hours, continue Diamox to 50 mg p.o. twice daily Continue amiodarone and Eliquis 06/08 Patient is awake alert, sitting at the bedside, looks tired. Patient has been using BiPAP machine all night but he could not sleep well because of frequent epistaxis happened last night. Currently epistaxis is stopped. No other bleeding from anywhere else. No headache dizziness or new weakness numbness. No chest pain. He still complaining from dyspnea but improving, leg swelling is better. No other GI/ symptom He is currently on 4 L oxygen via nasal cannula, at home he was using 2 L. I discussed the risk and benefits of anticoagulation including Eliquis and he agrees. Eliquis was resumed and we will going to monitor for bleeding. He is currently on Protonix 40 mg p.o. daily 06/09 Patient still with breathing difficulty. He is not in respiratory distress while at rest but he has still has limited air entry in both sides. He is using BiPAP overnight IV Lasix lowered to twice daily. Creatinine was 1.9. Check creatinine tomorrow Metoprolol dose increased 150 twice daily and to 200 mg in the morning and 200 mg in the evening Patient also remains on IV Solu-Medrol 40 mg Echocardiogram done yesterday showing ejection fraction of 60 to 65%, it was suboptimal study 06/10 Patient overall doing okay His breathing is quiet but looks at baseline. He is currently on 3 L of oxygen which is same home dose of 2-3. Patient confirms to me he has a concentrator and machine at home for his oxygen. Also he confirms to me he has Eliquis at home. Patient adamant not to go to subacute rehab, he says he had bad experience last time. Patient thus will be discharged home with home care. However multiple home agency rejected the patient. We will discussed with the patient and still recommend to go to subacute rehab if he agrees He has superficial wound on the tip of his right second toe. Wound consult is requested Overall doing well. Pulmonary team cleared him for discharge. Watch Assembler team recommend to monitor him 1 more day. After his IV Lasix switched to oral dose. Will monitor creatinine tomorrow Possible discharge in 24 to 48 hours 06/11 Patient was quite agitated overnight, he was hypoxic. He was transferred to the ICU after given some sedatives and placed back on BiPAP. Currently tolerating diet well and his oxygenation is improved Metoprolol dose was increased to 200 mg daily. Repeat chest x-ray showed cardiomegaly with pulm pulmonary vascular congestion, mild He remains on IV Solu-Medrol 60 mg. Normal Saline 75 mL started 06/12 Patient is still in the ICU, on BiPAP with a setting of 16/6 and FiO2 of 30% He is calm not agitated. Patient did not need extra doses of Haldol or Ativan He denies chest pain or any other new complaint He still adamant not to go To subacute rehab upon discharge despite the risk of noncompliance with BiPAP and other medical management 06/13 : Patient seen and evaluated bedside, patient transferred out of ICU, continue to have lower extremity edema, blood work reviewed platelets 73, serum chemistry sodium 133 potassium 3.6 creatinine 1.44, blood glucose in 300 06/14- patient seen and evaluated at bedside, patient remains on 2 L of oxygen, noted to have temp of 97.5 early in the morning. CBC reviewed WBC 8.8 platelet count of 77, serum chemistry sodium 134 potassium 4 creatinine 1.44, will increase dose of Lantus to 26 units twice daily, steroid wean down 06/15/2024 Patient is lying in the bed. Awake alert and oriented x 3. Requiring 2 L oxygen via nasal cannula. No complaints of chest pain or worsening shortness of breath. Still having bilateral lower extremity swelling and chronic venous stasis changes. No drainage from the leg wounds. Otherwise patient is being continued on Lasix 40 mg p.o. twice daily. He is also on IV Solu-Medrol, changed to prednisone 40 mg daily. Continue on DuoNebs and insulin regimen. Laboratory data showed WBC 12.3 hemoglobin 15.2 and platelets 96 sodium 133 potassium 4.7 chloride 97 bicarb is 30 BUN 65 and creatinine 1.37 and blood sugar 346. Calcium 8.5. Cardiology and pulmonary is on board. 06/16/2024 Patient is currently resting in the bed. Awake alert and oriented x 3. On oxygen at 3 L via nasal cannula. Patient required BiPAP last night. Denies any complaints of chest pain. Breathing status is slightly better. Bilateral leg swelling is still present. No cough or sputum production. Patient has been afebrile. Patient is being continued on IV Solu-Medrol changed to p.o. prednisone. Co ntinue on DuoNebs. Blood sugars controlled with insulin regimen. Laboratory data showed WBC 13.2 hemoglobin 15.0 and platelets 123 sodium 136 potassium 3.9 chloride 97 bicarb 35 BUN 64 and creatinine 1.44 and blood sugar 167 calcium 8.1. Pulmonary is on board. 06/17/2024 Patient is currently sitting on side of the bed. Awake alert and oriented. No complaints of chest pain or worsening shortness of breath. Patient still having bilateral lower extremity swelling and chronic venous stasis changes. No drainage from the wounds. Patient has been afebrile. Continued on oral diureti cs with Lasix and Aldactone. Also on Diamox. Laboratory data showed WBC 21.6 hemoglobin 13.6 and platelets 131 neutrophils 19.6 sodium 135 potassium 4.3 chloride 95 bicarb 36 BUN 16 creatinine 1.66 and calcium 8.5. 06/18/2024 Patient is resting in the bed. Awake alert and oriented. No complaints of chest pain. Requiring oxygen 2 L via nasal cannula. No cough or sputum production. Bilateral lower extremity swelling and chronic venous stasis changes. Continue on oral diuresis. No new laboratory data today. Pulmonary is on board. Blood sugar is fairly controlled. Continued on prednisone 40 mg daily along with breathing treatments. 06/19/2024 Patient is resting in the bed. Awake alert and oriented. Currently on 5 L oxygen via nasal cannula. Increased from yesterday. Denied any worsening chest pain or shortness of breath. Patient does have chronic lower extremity swelling and venous stasis Gonzalez wrap for now.. Afebrile. Laboratory data showed WBC improved to 13.1 hemoglobin 13.4 and platelets 129, sodium 134 potassium 4.2 chloride 94 bicarb 37 BUN 57 and creatinine 1.39 and blood sugar 128. Calcium 7.9. Continued on oral diuretics Lasix and spironolactone and insulin regimen. PHYSICAL EXAMINATION: GENERAL: The patient is alert and oriented x3, morbidly obese HEENT: Pupils are round and equally reacting to light. EOMI. CARDIOVASCULAR: S1 and S2 present. No murmurs, rubs, or gallops. PULMONARY: Chest is clear to auscultation, no wheezing or crackles. ABDOMEN: Soft, nontender, nondistended, normoactive bowel sounds. No palpable organomegaly. MUSCULOSKELETAL: No joint swelling or deformity. EXTREMITIES: Bilateral lower extremity swelling and venous stasis changes. NEUROLOGICAL: Gross neurological examination did not reveal any focal deficits. SKIN: Bilateral lower extremity edema, wound bandage Objective - Vital Signs Vital signs: Vital Signs Temp 97.7 F 06/19/24 15:29 Pulse 71 06/19/24 15:29 Resp 17 06/19/24 15:29 BP 103/61 06/19/24 15:29 Pulse Ox 96 06/19/24 15:29 FiO2 30 06/19/24 11:17 Intake & Output 06/19/24 06/19/24 06/20/24 06:59 18:59 06:59 Intake Total 780 829 Output Total 600 Balance 180 829 Weight 155 kg Intake: Oral 780 829 Output: Urine 600 Other: Voiding Method Toilet Toilet Urinal Urinal - Labs CBC & Chem 7: 06/19/24 08:48 06/19/24 08:48 Labs: Abnormal Lab Results - Last 24 Hours (Table) 06/18/24 06/19/24 06/19/24 Range/Units 20:31 06:24 08:48 WBC 13.1 H (3.8-10.6) k/uL MCHC 30.5 L (31.0-37.0) g/dL RDW 16.9 H (11.5-15.5) % Plt Count 129 L (150-450) k/uL Neutrophils # 11.8 H (1.3-7.7) k/uL Lymphocytes # 0.4 L (1.0-4.8) k/uL Sodium (137-145) mmol/L Chloride (98-107) mmol/L Carbon Dioxide (22-30) mmol/L BUN (9-20) mg/dL Creatinine (0.66-1.25) mg/dL Glucose (74-99) mg/dL POC Glucose (mg/dL) 284 H 136 H (70-110) mg/dL Calcium (8.4-10.2) mg/dL 06/19/24 06/19/24 06/19/24 Range/Units 08:48 11:20 16:45 WBC (3.8-10.6) k/uL MCHC (31.0-37.0) g/dL RDW (11.5-15.5) % Plt Count (150-450) k/uL Neutrophils # (1.3-7.7) k/uL Lymphocytes # (1.0-4.8) k/uL Sodium 134 L (137-145) mmol/L Chloride 94 L (98-107) mmol/L Carbon Dioxide 37 H (22-30) mmol/L BUN 57 H (9-20) mg/dL Creatinine 1.39 H (0.66-1.25) mg/dL Glucose 128 H (74-99) mg/dL POC Glucose (mg/dL) 146 H 184 H (70-110) mg/dL Calcium 7.9 L (8.4-10.2) mg/dL Assessment and Plan Assessment: Assessment: * acute on chronic hypoxic hypercapnic respiratory failure * acute exacerbation of congestive heart failure diastolic dysfunction * Acute COPD exacerbation * chronic atrial fibrillation with controlled ventricular response * obstructive sleep apnea * history of hypertension * history of hyperlipidemia * BPH * diabetes mellitus type 2 on insulin * history of noncompliant * Morbid obesity BMI 44.8 Plan: patient is currently in the medical floor. Patient is on 5 L via nasal cannula. BiPAP as needed. in regards to CHF exacerbation continue patient on Lasix, continue to monitor intake and output, continue Aldactone. Patient is also on Diamox. in regards to COPD exacerbation continue breathing treatment IV Solu-Medrol, wean down from 60mg every 6hr to prednisone 40mg daily. Pulmonary medicine following in regards to diabetes mellitus continue Accu-Cheks continue insulin correct ional and Levemir monitor for hypoglycemia, dose of Lantus increased secondary to hyperglycemia. in regards to atrial fibrillation anticoagulation with Eliquis, continue rate control with metoprolol, amiodarone discontinued by cardiology during this hospitalization in regards to BPH continue Flomax DVT prophylaxis: Eliquis GI Prophylaxis: Protonix Time with Patient: Greater than 30
[2024-06-20 06:18] LABS: Glucose,Whole Blood 172 mg/dL (70-110)
[2024-06-20 09:56] LABS: Anisocytosis Slight; Basophils # (A) 0.1 k/uL (0-0.2); Basophils % (A) 0 %; Eosinophils # (A) 0.1 k/uL (0-0.7); Eosinophils % (A) 0 %; HCT 43.8 % (39.0-53.0); HGB 13.7 gm/dL (13.0-17.5); Hypochromasia Marked; Lymphocytes # (A) 0.5 k/uL (1.0-4.8); Lymphocytes % (A) 3 %; MCHC 31.2 g/dL (31.0-37.0); MCV 92.9 fL (80.0-100.0); Mean Platelet Volume 9.2; Monocytes # (A) 0.6 k/uL (0-1.0); Monocytes % (A) 3 %; Neutrophils # (A) 14.8 k/uL (1.3-7.7); Neutrophils % (A) 92 %; Platelet Count 142 k/uL (150-450); RBC 4.72 m/uL (4.30-5.90); RDW 16.9 % (11.5-15.5); WBC 16.2 k/uL (3.8-10.6)
[2024-06-20 10:25] LABS: African American GFR (CKD) 68 (>60 ml/min/1.73 sqM); Anion Gap 0 mmol/L; Blood Urea Nitrogen 54 mg/dL (9-20); Calcium 8.4 mg/dL (8.4-10.2); Carbon Dioxide 38 mmol/L (22-30); Chloride 97 mmol/L (98-107); Glucose 120 mg/dL (74-99); Non-African American GFR(CKD) 59 (>60 ml/min/1.73 sqM); Potassium 4.3 mmol/L (3.5-5.1); Sodium 135 mmol/L (137-145)
[2024-06-20 11:17] LABS: Glucose,Whole Blood 163 mg/dL (70-110)
--- NOTE | 2024-06-20 13:45 | P.PN ---
Subjective Progress Note Date: 06/20/24 This is a 59-year-old white male familiar to my service, known history of multiple medical problems including severe end-stage COPD, obstructive sleep apnea syndrome, BiPAP dependent almost, history of chronic hypoxic and chronic hypercapnic respiratory failure, patient is frequently in the hospital with similar presentation each time. This time he was seen in the ER with worsening shortness of breath, and he noted that his O2 saturation has been getting less and less, patient is known to be noncompliant at times with his BiPAP. At any rate patient was seen in the ER, ABG showed relative hypoxia with a pO2 of 63 on 35% FiO2 84 pH of 7.24 patient had positive drug screen for oxycodone and benzod iazepines, patient was placed on BiPAP and I saw him in the ER, recommended that the patient goes on his usual treatment with bronchodilators, BiPAP, and diuretics. Patient himself is not a great historian and he was not a great historian today when I saw him in the ER as he was hypercapnic on BiPAP, lethargic but arousable and did not follow much instructions labs showed normal CBC, abnormal ABG as noted earlier, Bicarb of 39 BUN 55 creatinine 1.81 elevated BNP level, and chest x-ray showing evidence of pulmonary edema Patient was seen today on 06/06/2024, feeling a bit better today, breathing easier, patient is on bronchodilators and is also on BiPAP intermittently, now on 3 L nasal cannula does not seem to be in any distress, remains on diuretics for his congestive heart failure. Improving and he is almost back to baseline. WBC is 4.2 hemoglobin 13.1 electrolytes are normal bicarb is 38 BUN is 49 creatinine 1.58 Seen today on 06/07/2024, patient is doing well today, less shortness of breath less cough, no wheezing, no chest pain, no fever, no chills, no hemoptysis presently on 3 L nasal cannula, and his O2 saturation is 100% hemodynamically stable blood pressure is 116/73. WBC count is 7.5 hemoglobin is 15.2 basic metabolic profile is normal bicarb is 36 BUN 50 creatinine 1.55, steadily improving compared to creatinine of 1.81 on admission Progress note dated June 08, 2024. The patient is seen in room 350. He continues on oxygen at 4 L. No IV fluids. The use of BiPAP, last night, only for short period of time, because apparently caused a nosebleed. His BiPAP settings were seen over 6, 35%. He is sitting on the side of the bed. In no distress. Current labs include sodium 136, potassium 4.7, chlorides 90, CO2 34, BUN 57, and creatinine 1.92. Glucose is 243. Calcium is 8.5. Progress note dated June 09, 2024. 59-year-old male seen today in room 350. The patient remains on nasal O2 at 3 L. He did use a BiPAP for 5 hours last night, with settings of 16/6, 35%. He is not receiving any IV fluids. He is feeling about the same. No new labs tod ay other than a glucose of 210. Progress note dated June 10, 2024. 59-year-old male seen today in room 350. The patient is doing about the same. The nurses asked whether or not he could be discharged, and from our perspective, he can be. He is on BiPAP at 16/6, 35% in the evening. During the daytime, he is on nasal O2, 2 L. He is not receiving any IV fluids. He has no new complaints today. Sodium 136, potassium 4.6, chlorides 95, CO2 39, BUN 67, creatinine 1.83. Glucose is 319. Progress note dated June 11, 2024. 59-year-old male with a history of severe COPD. The patient was being managed up on the third floor, but this morning apparently became very agitated. He was pulling off his BiPAP. Saturations were quite low. The patient was transferred to the intensive care unit, for further monitoring and management. A blood gas was done showing a pO2 of 78, pCO2 of 46, pH of 7.41. BiPAP settings of 16/6, and 35%. Is not receiving any IV fluids. The patient is a DO NOT RESUSCITATE patient. I have added Ativan 1 mg IV every 6 hours, and Haldol 48 mg IM or IV, every 4 hours as needed. The patient is quite agitated. Sodium 135, potassium 4.6, chlorides 96, CO2 31, BUN 73, creatinine 1.61. Glucose is 218. Calcium is 8.8. Chest x-ray shows evidence of cardiomegaly, and some pulmonary vascular congestion. Progress note dated June 12, 2024. 59-year-old male who is again seen in room 253. The patient currently is on BiPAP. BiPAP settings are 16/6, 35%. Will drop the FiO2 down to 30%. He is not receiving any IV fluids. According to the nurse, the patient had a uneventful night last night. Current labs include a white count 8.8, hemoglobin 13.5, hematocrit 43.3, platelet count 91,000. Sodium 138, potassium 3.9, chlorides 98, CO2 37, BUN 66, creatinine 1.56. Glucose is 292. Calcium 8.1. Chest x-ray shows mild bibasilar infiltrates, consistent with atelectasis. Progress note dated June 13, 2024. 59-year-old male seen again in room 253. Yesterday, when I saw him in the morning, he was on BiPAP. Apparently throughout the day he was on 2 L. Overnight, he continues on BiPAP at 16/6, and 30%. He is not receiving any IV fluids. According to the nurses he had a pretty uneventful day yesterday. White count is 10.4, hemoglobin 13.8, hematocrit 44.4, platelet count 73,000. Sodium 133, potassium 3.6, chlorides 99, CO2 33, BUN 60, creatinine 1.44. Glucose is 266. Calcium is 8.3. No chest x-ray today. Progress note dated June 14, 2024. 59-year-old obese male, seen in room 385. The patient was in the intensive care unit, for a number of days, for worsening respiratory failure. I believe that this patient occasionally will either not wear his BiPAP device, or he takes it off, while he is sleeping, becomes more hypoxemic and hypercapnic, which creates agitation, and confusion. Currently, he is on 2 L of nasal oxygen. While on BiPAP, his settings are 16/6, 30%. The patient is not receiving any IV fluids. He is resting comfortably in bed. He has severe COPD with an FEV1 that is less than 20% of predicted. Current labs include a white count 8.8, hemoglobin 14.2, hematocrit 46, and a platelet count of 77,000. Sodium 134, potassium 4, chloride 97, CO2 33, BUN 64, creatinine 1.44. Glucose is 383. Calcium is 8.3. On 06/15/2024, the patient is doing well. No specific complaints. He is on 2 L of oxygen by nasal cannula with a pulse ox of 99 to 100%. No significant cough sputum production chest tightness or wheezing. Continues to have some edema lower extremities bilaterally. Remains on DuoNeb the regiment [id number]. Remains on IV Solu-Medrol 40 mg every 12 hours regarding history of the exacerbation the patient is also on a combination of Perforomist and Pulmicort updrafts twice a day. He is on Aldactone 25 mg p.o. daily. He is also on Lasix 40 mg p.o. twice daily and Diamox to 50 mg p.o. twice a day. Remains on metoprolol 200 mg p.o. daily in the morning and 200 mg at bedtime. Rest of the medications remain unchanged. White cell count of 12.3 with a hemoglobin 15.2 and a platelet count of 96. BUN 65 with a creatinine of 1.37 and sodium levels at 133. Glucose levels are slightly elevated and the patient is on Levemir insulin 35 units twice a day and NovoLog 5 units with meal and sliding scale coverage. The patient also has a BiPAP at the bedside which she is using overnight at a pressure of 16/6 with a FiO2 of 30%. The patient is currently on 3 L of oxygen by nasal cannula. 06/16/2024, the patient is being seen for a follow-up. No new complaints. Sit ting at the edge of the bed. Remains on DuoNeb updrafts. Remains on Pulmicort Respules and Perforomist. Currently on prednisone burst taper started at a dose of 40 mg p.o. daily. Remains on Levemir insulin 35 units twice daily and NovoLog 9 units with meals and insulin scale coverage. Remains on diuretics and the patient is currently on Lasix 40 mg p.o. twice daily and Aldactone 25 mg p.o. daily. Rest of the medications remain unchanged. The patient is calm and comfortable on 3 L of oxygen by nasal cannula with a pulse ox of 98%. Fluid balance has been -1.6 L over the past 24 hours. The white cell count of 13.2 with hemoglobin 15. BUN 64 with a creatinine 1.4 and a sodium levels at 136. Renal function stable. Potassium levels are 3.9. Serum bicarbonate 25. No antibiotic coverage at this point in time. On 06/17/2024, no new complaint since the patient remains on 3 L of oxygen by nasal cannula. Sitting up in a chair. Edema lower extremities still present. White cell count of 21 with a hemoglobin of 15.6 and a platelet count of 131. Electrolytes are stable and the patient has chronic metabolic alkalosis with a serum bicarb of 36 and a BUN of 63 and a creatinine of 1.66. Medications remain unchanged. Remains on anticoagulation. Remains on Lasix 40 mg p.o. twice daily, Diamox to 50 mg p.o. twice a day and Aldactone 25 mg p.o. daily. Remains on Flomax. No respiratory distress for now. On 06/18/2024, no new complaints, the patient remains on 2 L of oxygen by nasal cannula and the medications remain essentially unchanged. Remains on Lasix and Aldactone. No antibiotic coverage. Still on anticoagulation with Eliquis. Bronchodilators are with DuoNeb updrafts and a combination of Perforomist and Pulmicort. Vitals are all stable. He is afebrile. Hemodynamically stable. No new labs are available from today. Yesterday's labs were noted. On 06/19/2024, the patient is stable. No changes condition. No change in medication. He is on a prednisone burst taper starting with 40 mg p.o. daily. Remains on the same diuretic regimen. Chronic lower extremity edema. Right lower extremity is wrapped. BUN is 57 with a creatinine of 1.39 and the patient has a sodium level of 134 with a potassium level of 4.2. CBC shows a drop in the white cell count down to 13.1 with a heme of 17.5 and a platelet count of 129. Respiratory status is stable and the patient remains on oxygen and the flow is ranging between 2 and 5 L/min nasal cannula. No respiratory distress. Tolerating diet. On 06/20/2024, the patient is being seen for a follow-up. No new complaints. The white cell count is 16 with a heme of 13.7 and platelet count of 142. BUN 64 with a creatinine of 1.3. Medications remain unchanged. He does have chronic lower extremity edema and the patient has been stasis and the legs are wrapped at this point in time. Remains on a combination of Lasix and Aldactone. Objective - Vital Signs Vital signs: Vital Signs Temp 97.8 F 06/20/24 08:25 Pulse 80 06/20/24 08:56 Resp 18 06/20/24 08:25 BP 91/53 06/20/24 08:25 Pulse Ox 95 06/20/24 08:45 FiO2 30 06/19/24 11:17 Intake & Output 06/19/24 06/20/24 06/20/24 18:59 06:59 18:59 Intake Total 829 1080 236 Balance 829 1080 236 Weight 155.8 kg Intake: Oral 829 1080 236 Other: Voiding Method Toilet Toilet Urinal Urinal # Voids 1 - Exam The patient is quite confused, and agitated. Currently on nasal O2 at4L. HEENT examination is grossly unremarkable. Mucous membranes are moist. No oral lesions. Neck supple. Full range of motion. No adenopathy thyromegaly or neck vein distention. Cardiovascular examination reveals an irregular rhythm and rate. S1-S2 normal. No S3 or S4. No discernible murmur noted. Heart sounds are distant. Lungs reveal mostly clear breath sounds. Breath sounds are diminished. No wh eezes. No rhonchi. No distinct crackles noted. Abdomen, soft but obese. Bowel sounds are noted. Extremities reveal 2+ edema, and chronic venous stasis changes. No clubbing or cyanosis. Both legs are wrapped. Skin is without rash or lesion. Neurologic examination is brief but nonfocal. - Labs CBC & Chem 7: 06/20/24 09:35 06/20/24 09:35 Labs: Abnormal Lab Results - Last 24 Hours (Table) 06/19/24 06/19/24 06/19/24 Range/Units 11:20 16:45 20:33 WBC (3.8-10.6) k/uL RDW (11.5-15.5) % Plt Count (150-450) k/uL Neutrophils # (1.3-7.7) k/uL Lymphocytes # (1.0-4.8) k/uL POC Glucose (mg/dL) 146 H 184 H 307 H (70-110) mg/dL 06/20/24 06/20/24 Range/Units 06:16 09:35 WBC 16.2 H (3.8-10.6) k/uL RDW 16.9 H (11.5-15.5) % Plt Count 142 L (150-450) k/uL Neutrophils # 14.8 H (1.3-7.7) k/uL Lymphocytes # 0.5 L (1.0-4.8) k/uL POC Glucose (mg/dL) 172 H (70-110) mg/dL Assessment and Plan Plan: Acute on chronic hypoxemic and hypercapnic respiratory failure, secondary to chronic diastolic CHF exacerbation, as well as COPD exacerbation. Patient is currently on 4 L of oxygen by nasal cannula. No significant respiratory distress. The patient is currently off the BiPAP. Small bilateral pleural effusions. Severe COPD, stage IV, with an FEV1 that is 22% of predicted. Obstructive sleep apnea syndrome, noncompliant with noninvasive positive pressure ventilation. Morbid obesity with a BMI of 48.7 kg/m. Stage IIIa chronic kidney disease. Atrial fibrillation. Chronic lower extremity edema. History of hypertension. History of hyperlipidemia. Former tobacco dependence. Severe cellulitis of the right lower extremity, stable, recovered Plan: No change in his condition Clinically stable will continue same treatment Patient currently on 4 L O2 nasal cannula Continue Lasix 40 mg p.o. twice a day Continue Diamox Continue Aldactone 25 mg p.o. daily Monitor serum bicarb Continue DuoNeb nebulized treatments [id number] in addition to a combination of Perforomist and Pulmicort updrafts Prednisone burst taper Continue the combination of metoprolol and anticoagulation with Eliquis regarding his atrial fibrillation Continue Levemir insulin 35 units twice daily along with 5 units of NovoLog with meals and sliding scale coverage History of discharge
[2024-06-20 16:12] LABS: Glucose,Whole Blood 228 mg/dL (70-110)
[2024-06-20 20:27] LABS: Glucose,Whole Blood 252 mg/dL (70-110)
--- NOTE | 2024-06-20 22:41 | P.PN ---
Subjective Progress Note Date: 06/20/24 59-year-old male, history of hypertension, hyperlipidemia, atrial fibrillation, asthma/COPD, sleep apnea, who comes from the assisted because he was more lethargic and his pulse ox was low at the assisted. Patient normally is on 2 L of oxygen at home. Patient himself wakes up and has no complaints however he is quick to go back to sleep. Patient has had no history of fever or chills patient denied any chest pain or palpitation. Patient has any abdominal pain patient has nausea vomiting diarrhea Blood work reveals WBC of 5.3, hemoglobin of 13.6 and platelet count of 144, sodium 138, potassium 4.6, BUNs/creatinine of 55/1.8 and blood glucose of 155, magnesium elevated at 2.5, lactic acid level of 1.5, troponin 0.023, ABG reveals pH of 7.24, pCO2 of 84, pO2 of 63; patient is admitted for further treatment for pulmonary edema hypercapnia Chest x-ray completed in ED reveals pulmonary edema 24-hour interval change 06/07/2024, -Patient is seen and evaluated in room at bedside; patient is doing well today, less shortness of breath less cough, no wheezing, no chest pain, no fever, no c hills, no hemoptysis --presently on 3 L nasal cannula, and his O2 saturation is 100% hemodynamically stable blood pressure is 116/73. Review shows WBC count is 7.5 hemoglobin is 15.2 basic metabolic profile is normal bicarb is 36 BUN 50 creatinine 1.55, steadily improving compared to creatinine of 1.81 on admission Continue bronchodilators and methylprednisolone 40 mg IV every 8 hours Continue diuretics, Lasix 40 mg IV push every 8 hours, continue Diamox to 50 mg p.o. twice daily Continue amiodarone and Eliquis 06/08 Patient is awake alert, sitting at the bedside, looks tired. Patient has been using BiPAP machine all night but he could not sleep well because of frequent epistaxis happened last night. Currently epistaxis is stopped. No other bleeding from anywhere else. No headache dizziness or new weakness numbness. No chest pain. He still complaining from dyspnea but improving, leg swelling is better. No other GI/ symptom He is currently on 4 L oxygen via nasal cannula, at home he was using 2 L. I discussed the risk and benefits of anticoagulation including Eliquis and he agrees. Eliquis was resumed and we will going to monitor for bleeding. He is currently on Protonix 40 mg p.o. daily 06/09 Patient still with breathing difficulty. He is not in respiratory distress while at rest but he has still has limited air entry in both sides. He is using BiPAP overnight IV Lasix lowered to twice daily. Creatinine was 1.9. Check creatinine tomorrow Metoprolol dose increased 150 twice daily and to 200 mg in the morning and 200 mg in the evening Patient also remains on IV Solu-Medrol 40 mg Echocardiogram done yesterday showing ejection fraction of 60 to 65%, it was suboptimal study 06/10 Patient overall doing okay His breathing is quiet but looks at baseline. He is currently on 3 L of oxygen which is same home dose of 2-3. Patient confirms to me he has a concentrator and machine at home for his oxygen. Also he confirms to me he has Eliquis at home. Patient adamant not to go to subacute rehab, he says he had bad experience last time. Patient thus will be discharged home with home care. However multiple home agency rejected the patient. We will discussed with the patient and still recommend to go to subacute rehab if he agrees He has superficial wound on the tip of his right second toe. Wound consult is requested Overall doing well. Pulmonary team cleared him for discharge. [employer] team recommend to monitor him 1 more day. After his IV Lasix switched to oral dose. Will monitor creatinine tomorrow Possible discharge in 24 to 48 hours 06/11 Patient was quite agitated overnight, he was hypoxic. He was transferred to the ICU after given some sedatives and placed back on BiPAP. Currently tolerating diet well and his oxygenation is improved Metoprolol dose was increased to 200 mg daily. Repeat chest x-ray showed cardiomegaly with pulm pulmonary vascular congestion, mild He remains on IV Solu-Medrol 60 mg. Normal Saline 75 mL started 06/12 Patient is still in the ICU, on BiPAP with a setting of 16/6 and FiO2 of 30% He is calm not agitated. Patient did not need extra doses of Haldol or Ativan He denies chest pain or any other new complaint He still adamant not to go To subacute rehab upon discharge despite the risk of noncompliance with BiPAP and other medical management 06/13 : Patient seen and evaluated bedside, patient transferred out of ICU, continue to have lower extremity edema, blood work reviewed platelets 73, serum chemistry sodium 133 potassium 3.6 creatinine 1.44, blood glucose in 300 06/14- patient seen and evaluated at bedside, patient remains on 2 L of oxygen, noted to have temp of 97.5 early in the morning. CBC reviewed WBC 8.8 platelet count of 77, serum chemistry sodium 134 potassium 4 creatinine 1.44, will increase dose of Lantus to 26 units twice daily, steroid wean down 06/15/2024 Patient is lying in the bed. Awake alert and oriented x 3. Requiring 2 L oxygen via nasal cannula. No complaints of chest pain or worsening shortness of breath. Still having bilateral lower extremity swelling and chronic venous stasis changes. No drainage from the leg wounds. Otherwise patient is being continued on Lasix 40 mg p.o. twice daily. He is also on IV Solu-Medrol, changed to prednisone 40 mg daily. Continue on DuoNebs and insulin regimen. Laboratory data showed WBC 12.3 hemoglobin 15.2 and platelets 96 sodium 133 potassium 4.7 chloride 97 bicarb is 30 BUN 65 and creatinine 1.37 and blood sugar 346. Calcium 8.5. Cardiology and pulmonary is on board. 06/16/2024 Patient is currently resting in the bed. Awake alert and oriented x 3. On oxygen at 3 L via nasal cannula. Patient required BiPAP last night. Denies any complaints of chest pain. Breathing status is slightly better. Bilateral leg swelling is still present. No cough or sputum production. Patient has been afebrile. Patient is being continued on IV Solu-Medrol changed to p.o. prednisone. Co ntinue on DuoNebs. Blood sugars controlled with insulin regimen. Laboratory data showed WBC 13.2 hemoglobin 15.0 and platelets 123 sodium 136 potassium 3.9 chloride 97 bicarb 35 BUN 64 and creatinine 1.44 and blood sugar 167 calcium 8.1. Pulmonary is on board. 06/17/2024 Patient is currently sitting on side of the bed. Awake alert and oriented. No complaints of chest pain or worsening shortness of breath. Patient still having bilateral lower extremity swelling and chronic venous stasis changes. No drainage from the wounds. Patient has been afebrile. Continued on oral diureti cs with Lasix and Aldactone. Also on Diamox. Laboratory data showed WBC 21.6 hemoglobin 13.6 and platelets 131 neutrophils 19.6 sodium 135 potassium 4.3 chloride 95 bicarb 36 BUN 16 creatinine 1.66 and calcium 8.5. 06/18/2024 Patient is resting in the bed. Awake alert and oriented. No complaints of chest pain. Requiring oxygen 2 L via nasal cannula. No cough or sputum production. Bilateral lower extremity swelling and chronic venous stasis changes. Continue on oral diuresis. No new laboratory data today. Pulmonary is on board. Blood sugar is fairly controlled. Continued on prednisone 40 mg daily along with breathing treatments. 06/19/2024 Patient is resting in the bed. Awake alert and oriented. Currently on 5 L oxygen via nasal cannula. Increased from yesterday. Denied any worsening chest pain or shortness of breath. Patient does have chronic lower extremity swelling and venous stasis Gonzalez wrap for now.. Afebrile. Laboratory data showed WBC improved to 13.1 hemoglobin 13.4 and platelets 129, sodium 134 potassium 4.2 chloride 94 bicarb 37 BUN 57 and creatinine 1.39 and blood sugar 128. Calcium 7.9. Continued on oral diuretics Lasix and spironolactone and insulin regimen. 06/20/2024 Patient is sitting on side of the bed. Awake alert and oriented x 3. On oxygen at 4 L via nasal cannula. No complaints of chest pain or worsening shortness of breath. Otherwise patient is still having bilateral lower extremity swelling and especially left lower extremity swelling with weeping serous discharge and blister formation. Patient has been afebrile. No nausea vomiting abdominal pain or diarrhea. Patient has been continued on prednisone 40 mg daily. Patient is on Lasix 40 mg twice daily, acetazolamide to 50 mg twice daily and spironolactone 25 mg daily. PHYSICAL EXAMINATION: GENERAL: The patient is alert and oriented x3, morbidly obese HEENT: Pupils are round and equally reacting to light. EOMI. CARDIOVASCULAR: S1 and S2 present. No murmurs, rubs, or gallops. PULMONARY: Chest is clear to auscultation, no wheezing or crackles. ABDOMEN: Soft, nontender, nondistended, normoactive bowel sounds. No palpable organomegaly. MUSCULOSKELETAL: No joint swelling or deformity. EXTREMITIES: Bilateral lower extremity swelling and venous stasis changes. NEUROLOGICAL: Gross neurological examination did not reveal any focal deficits. SKIN: Bilateral lower extremity edema, wound bandage Objective - Vital Signs Vital signs: Vital Signs Temp 97.9 F 06/20/24 20:00 Pulse 80 06/20/24 20:34 Resp 18 06/20/24 20:00 BP 128/78 06/20/24 20:00 Pulse Ox 96 06/20/24 20:00 FiO2 30 06/19/24 11:17 Intake & Output 06/20/24 06/20/24 06/21/24 06:59 18:59 06:59 Intake Total 3440 1196 658 Balance 2997 1196 658 Weight 155.8 kg Intake: Oral 4741 1196 658 Other: Voiding Method Toilet Toilet Toilet Urinal Urinal Urinal # Voids 1 1 - Labs CBC & Chem 7: 06/20/24 09:35 06/20/24 09:35 Labs: Abnormal Lab Results - Last 24 Hours (Table) 06/20/24 06/20/24 06/20/24 Range/Units 06:16 09:35 09:35 WBC 16.2 H (3.8-10.6) k/uL RDW 16.9 H (11.5-15.5) % Plt Count 142 L (150-450) k/uL Neutrophils # 14.8 H (1.3-7.7) k/uL Lymphocytes # 0.5 L (1.0-4.8) k/uL Sodium 135 L (137-145) mmol/L Chloride 97 L (98-107) mmol/L Carbon Dioxide 38 H (22-30) mmol/L BUN 54 H (9-20) mg/dL Creatinine 1.31 H (0.66-1.25) mg/dL Glucose 120 H (74-99) mg/dL POC Glucose (mg/dL) 172 H (70-110) mg/dL 06/20/24 06/20/24 06/20/24 Range/Units 11:16 16:09 20:26 WBC (3.8-10.6) k/uL RDW (11.5-15.5) % Plt Count (150-450) k/uL Neutrophils # (1.3-7.7) k/uL Lymphocytes # (1.0-4.8) k/uL Sodium (137-145) mmol/L Chloride (98-107) mmol/L Carbon Dioxide (22-30) mmol/L BUN (9-20) mg/dL Creatinine (0.66-1.25) mg/dL Glucose (74-99) mg/dL POC Glucose (mg/dL) 163 H 228 H 252 H (70-110) mg/dL Assessment and Plan Assessment: Assessment: * acute on chronic hypoxic hypercapnic respiratory failure * acute exacerbation of congestive heart failure diastolic dysfunction * Acute COPD exacerbation * chronic atrial fibrillation with controlled ventricular response * Bilateral lower extremity swelling and blister formation with venous stasis changes. * obstructive sleep apnea * history of hypertension * history of hyperlipidemia * BPH * diabetes mellitus type 2 on insulin * history of noncompliant * Morbid obesity BMI 44.8 Plan: patient is currently in the medical floor. Patient is on 4 L via nasal cannula. BiPAP as needed. in regards to CHF exacerbation continue patient on Lasix, continue to monitor intake and output, continue Aldactone. Patient is also on Diamox. in regards to COPD exacerbation continue breathing treatment IV Solu-Medrol, wean down from 60mg every 6hr to prednisone 40mg daily. Pulmonary medicine following in regards to diabetes mellitus continue Accu-Cheks continue insulin correctional and Levemir monitor for hypoglycemia, dose of Lantus increased to 35 mg twice daily and NovoLog 9 units 3 times daily AC. in regards to atrial fibrillation anticoagulation with Eliquis, continue rate control with metoprolol. Amiodarone discontinued by cardiology during this hospitalization in regards to BPH continue Flomax DVT prophylaxis: Eliquis GI Prophylaxis: Protonix Continue with wound care and leg elevation. Pain management and follow-up closely. Anticipate discharge in the next 24 to 48 hours. Time with Patient: Greater than 30
[2024-06-21 06:15] LABS: Glucose,Whole Blood 144 mg/dL (70-110)
[2024-06-21 07:38] LABS: Anisocytosis Slight; Basophils # (A) 0.1 k/uL (0-0.2); Basophils % (A) 0 %; Eosinophils % (A) 0 %; HCT 44.9 % (39.0-53.0); Hypochromasia Marked; Lymphocytes # (A) 0.5 k/uL (1.0-4.8); Lymphocytes % (A) 3 %; MCH 28.9 pg (25.0-35.0); MCHC 31.1 g/dL (31.0-37.0); MCV 92.9 fL (80.0-100.0); Mean Platelet Volume 8.7; Monocytes # (A) 0.5 k/uL (0-1.0); Monocytes % (A) 3 %; Neutrophils # (A) 15.6 k/uL (1.3-7.7); Neutrophils % (A) 93 %; Platelet Count 161 k/uL (150-450); RBC 4.83 m/uL (4.30-5.90); RDW 16.9 % (11.5-15.5); WBC 16.9 k/uL (3.8-10.6)
[2024-06-21 07:46] LABS: African American GFR (CKD) 70 (>60 ml/min/1.73 sqM); Anion Gap 3 mmol/L; Blood Urea Nitrogen 49 mg/dL (9-20); Calcium 8.4 mg/dL (8.4-10.2); Carbon Dioxide 36 mmol/L (22-30); Chloride 97 mmol/L (98-107); Glucose 130 mg/dL (74-99); Non-African American GFR(CKD) 61 (>60 ml/min/1.73 sqM); Potassium 4.5 mmol/L (3.5-5.1); Sodium 136 mmol/L (137-145)
[2024-06-21 11:25] LABS: Glucose,Whole Blood 186 mg/dL (70-110)
--- NOTE | 2024-06-21 12:36 | P.PN ---
Subjective Progress Note Date: 06/21/24 This is a 59-year-old white male familiar to my service, known history of multiple medical problems including severe end-stage COPD, obstructive sleep apnea syndrome, BiPAP dependent almost, history of chronic hypoxic and chronic hypercapnic respiratory failure, patient is frequently in the hospital with similar presentation each time. This time he was seen in the ER with worsening shortness of breath, and he noted that his O2 saturation has been getting less and less, patient is known to be noncompliant at times with his BiPAP. At any rate patient was seen in the ER, ABG showed relative hypoxia with a pO2 of 63 on 35% FiO2 84 pH of 7.24 patient had positive drug screen for oxycodone and benzod iazepines, patient was placed on BiPAP and I saw him in the ER, recommended that the patient goes on his usual treatment with bronchodilators, BiPAP, and diuretics. Patient himself is not a great historian and he was not a great historian today when I saw him in the ER as he was hypercapnic on BiPAP, lethargic but arousable and did not follow much instructions labs showed normal CBC, abnormal ABG as noted earlier, Bicarb of 39 BUN 55 creatinine 1.81 elevated BNP level, and chest x-ray showing evidence of pulmonary edema Patient was seen today on 06/06/2024, feeling a bit better today, breathing easier, patient is on bronchodilators and is also on BiPAP intermittently, now on 3 L nasal cannula does not seem to be in any distress, remains on diuretics for his congestive heart failure. Improving and he is almost back to baseline. WBC is 4.2 hemoglobin 13.1 electrolytes are normal bicarb is 38 BUN is 49 creatinine 1.58 Seen today on 06/07/2024, patient is doing well today, less shortness of breath less cough, no wheezing, no chest pain, no fever, no chills, no hemoptysis presently on 3 L nasal cannula, and his O2 saturation is 100% hemodynamically stable blood pressure is 116/73. WBC count is 7.5 hemoglobin is 15.2 basic metabolic profile is normal bicarb is 36 BUN 50 creatinine 1.55, steadily improving compared to creatinine of 1.81 on admission Progress note dated June 08, 2024. The patient is seen in room 350. He continues on oxygen at 4 L. No IV fluids. The use of BiPAP, last night, only for short period of time, because apparently caused a nosebleed. His BiPAP settings were seen over 6, 35%. He is sitting on the side of the bed. In no distress. Current labs include sodium 136, potassium 4.7, chlorides 90, CO2 34, BUN 57, and creatinine 1.92. Glucose is 243. Calcium is 8.5. Progress note dated June 09, 2024. 59-year-old male seen today in room 350. The patient remains on nasal O2 at 3 L. He did use a BiPAP for 5 hours last night, with settings of 16/6, 35%. He is not receiving any IV fluids. He is feeling about the same. No new labs tod ay other than a glucose of 210. Progress note dated June 10, 2024. 59-year-old male seen today in room 350. The patient is doing about the same. The nurses asked whether or not he could be discharged, and from our perspective, he can be. He is on BiPAP at 16/6, 35% in the evening. During the daytime, he is on nasal O2, 2 L. He is not receiving any IV fluids. He has no new complaints today. Sodium 136, potassium 4.6, chlorides 95, CO2 39, BUN 67, creatinine 1.83. Glucose is 319. Progress note dated June 11, 2024. 59-year-old male with a history of severe COPD. The patient was being managed up on the third floor, but this morning apparently became very agitated. He was pulling off his BiPAP. Saturations were quite low. The patient was transferred to the intensive care unit, for further monitoring and management. A blood gas was done showing a pO2 of 78, pCO2 of 46, pH of 7.41. BiPAP settings of 16/6, and 35%. Is not receiving any IV fluids. The patient is a DO NOT RESUSCITATE patient. I have added Ativan 1 mg IV every 6 hours, and Haldol 48 mg IM or IV, every 4 hours as needed. The patient is quite agitated. Sodium 135, potassium 4.6, chlorides 96, CO2 31, BUN 73, creatinine 1.61. Glucose is 218. Calcium is 8.8. Chest x-ray shows evidence of cardiomegaly, and some pulmonary vascular congestion. Progress note dated June 12, 2024. 59-year-old male who is again seen in room 253. The patient currently is on BiPAP. BiPAP settings are 16/6, 35%. Will drop the FiO2 down to 30%. He is not receiving any IV fluids. According to the nurse, the patient had a uneventful night last night. Current labs include a white count 8.8, hemoglobin 13.5, hematocrit 43.3, platelet count 91,000. Sodium 138, potassium 3.9, chlorides 98, CO2 37, BUN 66, creatinine 1.56. Glucose is 292. Calcium 8.1. Chest x-ray shows mild bibasilar infiltrates, consistent with atelectasis. Progress note dated June 13, 2024. 59-year-old male seen again in room 253. Yesterday, when I saw him in the morning, he was on BiPAP. Apparently throughout the day he was on 2 L. Overnight, he continues on BiPAP at 16/6, and 30%. He is not receiving any IV fluids. According to the nurses he had a pretty uneventful day yesterday. White count is 10.4, hemoglobin 13.8, hematocrit 44.4, platelet count 73,000. Sodium 133, potassium 3.6, chlorides 99, CO2 33, BUN 60, creatinine 1.44. Glucose is 266. Calcium is 8.3. No chest x-ray today. Progress note dated June 14, 2024. 59-year-old obese male, seen in room 385. The patient was in the intensive care unit, for a number of days, for worsening respiratory failure. I believe that this patient occasionally will either not wear his BiPAP device, or he takes it off, while he is sleeping, becomes more hypoxemic and hypercapnic, which creates agitation, and confusion. Currently, he is on 2 L of nasal oxygen. While on BiPAP, his settings are 16/6, 30%. The patient is not receiving any IV fluids. He is resting comfortably in bed. He has severe COPD with an FEV1 that is less than 20% of predicted. Current labs include a white count 8.8, hemoglobin 14.2, hematocrit 46, and a platelet count of 77,000. Sodium 134, potassium 4, chloride 97, CO2 33, BUN 64, creatinine 1.44. Glucose is 383. Calcium is 8.3. On 06/15/2024, the patient is doing well. No specific complaints. He is on 2 L of oxygen by nasal cannula with a pulse ox of 99 to 100%. No significant cough sputum production chest tightness or wheezing. Continues to have some edema lower extremities bilaterally. Remains on DuoNeb the regiment [id number]. Remains on IV Solu-Medrol 40 mg every 12 hours regarding history of the exacerbation the patient is also on a combination of Perforomist and Pulmicort updrafts twice a day. He is on Aldactone 25 mg p.o. daily. He is also on Lasix 40 mg p.o. twice daily and Diamox to 50 mg p.o. twice a day. Remains on metoprolol 200 mg p.o. daily in the morning and 200 mg at bedtime. Rest of the medications remain unchanged. White cell count of 12.3 with a hemoglobin 15.2 and a platelet count of 96. BUN 65 with a creatinine of 1.37 and sodium levels at 133. Glucose levels are slightly elevated and the patient is on Levemir insulin 35 units twice a day and NovoLog 5 units with meal and sliding scale coverage. The patient also has a BiPAP at the bedside which she is using overnight at a pressure of 16/6 with a FiO2 of 30%. The patient is currently on 3 L of oxygen by nasal cannula. 06/16/2024, the patient is being seen for a follow-up. No new complaints. Sit ting at the edge of the bed. Remains on DuoNeb updrafts. Remains on Pulmicort Respules and Perforomist. Currently on prednisone burst taper started at a dose of 40 mg p.o. daily. Remains on Levemir insulin 35 units twice daily and NovoLog 9 units with meals and insulin scale coverage. Remains on diuretics and the patient is currently on Lasix 40 mg p.o. twice daily and Aldactone 25 mg p.o. daily. Rest of the medications remain unchanged. The patient is calm and comfortable on 3 L of oxygen by nasal cannula with a pulse ox of 98%. Fluid balance has been -1.6 L over the past 24 hours. The white cell count of 13.2 with hemoglobin 15. BUN 64 with a creatinine 1.4 and a sodium levels at 136. Renal function stable. Potassium levels are 3.9. Serum bicarbonate 25. No antibiotic coverage at this point in time. On 06/17/2024, no new complaint since the patient remains on 3 L of oxygen by nasal cannula. Sitting up in a chair. Edema lower extremities still present. White cell count of 21 with a hemoglobin of 15.6 and a platelet count of 131. Electrolytes are stable and the patient has chronic metabolic alkalosis with a serum bicarb of 36 and a BUN of 63 and a creatinine of 1.66. Medications remain unchanged. Remains on anticoagulation. Remains on Lasix 40 mg p.o. twice daily, Diamox to 50 mg p.o. twice a day and Aldactone 25 mg p.o. daily. Remains on Flomax. No respiratory distress for now. On 06/18/2024, no new complaints, the patient remains on 2 L of oxygen by nasal cannula and the medications remain essentially unchanged. Remains on Lasix and Aldactone. No antibiotic coverage. Still on anticoagulation with Eliquis. Bronchodilators are with DuoNeb updrafts and a combination of Perforomist and Pulmicort. Vitals are all stable. He is afebrile. Hemodynamically stable. No new labs are available from today. Yesterday's labs were noted. On 06/19/2024, the patient is stable. No changes condition. No change in medication. He is on a prednisone burst taper starting with 40 mg p.o. daily. Remains on the same diuretic regimen. Chronic lower extremity edema. Right lower extremity is wrapped. BUN is 57 with a creatinine of 1.39 and the patient has a sodium level of 134 with a potassium level of 4.2. CBC shows a drop in the white cell count down to 13.1 with a heme of 17.5 and a platelet count of 129. Respiratory status is stable and the patient remains on oxygen and the flow is ranging between 2 and 5 L/min nasal cannula. No respiratory distress. Tolerating diet. On 06/20/2024, the patient is being seen for a follow-up. No new complaints. The white cell count is 16 with a heme of 13.7 and platelet count of 142. BUN 64 with a creatinine of 1.3. Medications remain unchanged. He does have chronic lower extremity edema and the patient has been stasis and the legs are wrapped at this point in time. Remains on a combination of Lasix and Aldactone. On 06/21/2024, the patient remains essentially unchanged. He has edema lower extremity and the patient has a vesicle that popped and he does have some weeping of fluid from his left lower extremity. The extremities need to be wrapped. He remains on Lasix and Aldactone. Rest of the medications remain unchanged. White cell count is 16 with a heme of 14 and a platelet count of 161. Sodium is at 136, BUN is 49 and the creatinine is 1.2. Remains on oxygen and 3 L on BiPAP overnight. No altered mentation. Objective - Vital Signs Vital signs: Vital Signs Temp 98.2 F 06/21/24 08:00 Pulse 81 06/21/24 08:00 Resp 19 06/21/24 08:00 BP 102/71 06/21/24 08:00 Pulse Ox 97 06/21/24 08:00 FiO2 30 06/21/24 00:49 Intake & Output 06/20/24 06/21/24 06/21/24 18:59 06:59 18:59 Intake Total 1196 658 236 Balance 1196 658 236 Weight 157.5 kg Intake: Oral 1196 658 236 Other: Voiding Method Toilet Toilet Toilet Urinal Urinal Urinal # Voids 2 - Exam The patient is quite confused, and agitated. Currently on nasal O2 at4L. HEENT examination is grossly unremarkable. Mucous membranes are moist. No oral lesions. Neck supple. Full range of motion. No adenopathy thyromegaly or neck vein distention. Cardiovascular examination reveals an irregular rhythm and rate. S1-S2 normal. No S3 or S4. No discernible murmur noted. Heart sounds are distant. Lungs reveal mostly clear breath sounds. Breath sounds are diminished. No wheezes. No rhonchi. No distinct crackles noted. Abdomen, soft but obese. Bowel sounds are noted. Extremities reveal 2+ edema, and chronic venous stasis changes. No clubbing or cyanosis. Both legs are wrapped. Skin is without rash or lesion. Neurologic examination is brief but nonfocal. - Labs CBC & Chem 7: 06/21/24 06:48 06/21/24 06:48 Labs: Abnormal Lab Results - Last 24 Hours (Table) 06/20/24 06/20/24 06/20/24 Range/Units 09:35 11:16 16:09 WBC (3.8-10.6) k/uL RDW (11.5-15.5) % Neutrophils # (1.3-7.7) k/uL Lymphocytes # (1.0-4.8) k/uL Sodium 135 L (137-145) mmol/L Chloride 97 L (98-107) mmol/L Carbon Dioxide 38 H (22-30) mmol/L BUN 54 H (9-20) mg/dL Creatinine 1.31 H (0.66-1.25) mg/dL Glucose 120 H (74-99) mg/dL POC Glucose (mg/dL) 163 H 228 H (70-110) mg/dL 06/20/24 06/21/24 06/21/24 Range/Units 20:26 06:14 06:48 WBC 16.9 H (3.8-10.6) k/uL RDW 16.9 H (11.5-15.5) % Neutrophils # 15.6 H (1.3-7.7) k/uL Lymphocytes # 0.5 L (1.0-4.8) k/uL Sodium (137-145) mmol/L Chloride (98-107) mmol/L Carbon Dioxide (22-30) mmol/L BUN (9-20) mg/dL Creatinine (0.66-1.25) mg/dL Glucose (74-99) mg/dL POC Glucose (mg/dL) 252 H 144 H (70-110) mg/dL 06/21/24 Range/Units 06:48 WBC (3.8-10.6) k/uL RDW (11.5-15.5) % Neutrophils # (1.3-7.7) k/uL Lymphocytes # (1.0-4.8) k/uL Sodium 136 L (137-145) mmol/L Chloride 97 L (98-107) mmol/L Carbon Dioxide 36 H (22-30) mmol/L BUN 49 H (9-20) mg/dL Creatinine 1.27 H (0.66-1.25) mg/dL Glucose 130 H (74-99) mg/dL POC Glucose (mg/dL) (70-110) mg/dL Assessment and Plan Plan: Acute on chronic hypoxemic and hypercapnic respiratory failure, secondary to chronic diastolic CHF exacerbation, as well as COPD exacerbation. Patient is currently on 4 L of oxygen by nasal cannula. No significant respiratory distress. The patient is currently off the BiPAP. Small bilateral pleural effusions. Severe COPD, stage IV, with an FEV1 that is 22% of predicted. Obstructive sleep apnea syndrome, noncompliant with noninvasive positive pressure ventilation. Morbid obesity with a BMI of 48.7 kg/m. Stage IIIa chronic kidney disease. Atrial fibrillation. Chronic lower extremity edema. History of hypertension. History of hyperlipidemia. Former tobacco dependence. Severe cellulitis of the right lower extremity, stable, recovered Plan: Apply compression wrapping to lower extremities bilaterally No change in his condition Clinically stable will continue same treatment Patient currently on 3 L O2 nasal cannula Continue Lasix 40 mg p.o. twice a day Continue Diamox Continue Aldactone 25 mg p.o. daily Monitor serum bicarb Continue DuoNeb nebulized treatments [id number] in addition to a combination of Perforomist and Pulmicort updrafts Prednisone burst taper Continue the combination of metoprolol and anticoagulation with Eliquis regarding his atrial fibrillation Continue Levemir insulin 35 units twice daily along with 5 units of NovoLog with meals and sliding scale coverage May discharge
[2024-06-21] MEDS: oxyCODONE-APAP 7.5-325MG 1 EACH TAB PO PRN (14:35)
[2024-06-21 17:09] LABS: Glucose,Whole Blood 263 mg/dL (70-110)
[2024-06-21 20:08] LABS: Glucose,Whole Blood 209 mg/dL (70-110)
--- NOTE | 2024-06-21 22:50 | P.PN ---
Subjective Progress Note Date: 06/21/24 59-year-old male, history of hypertension, hyperlipidemia, atrial fibrillation, asthma/COPD, sleep apnea, who comes from the detention because he was more lethargic and his pulse ox was low at the detention. Patient normally is on 2 L of oxygen at home. Patient himself wakes up and has no complaints however he is quick to go back to sleep. Patient has had no history of fever or chills patient denied any chest pain or palpitation. Patient has any abdominal pain patient has nausea vomiting diarrhea Blood work reveals WBC of 5.3, hemoglobin of 13.6 and platelet count of 144, sodium 138, potassium 4.6, BUNs/creatinine of 55/1.8 and blood glucose of 155, magnesium elevated at 2.5, lactic acid level of 1.5, troponin 0.023, ABG reveals pH of 7.24, pCO2 of 84, pO2 of 63; patient is admitted for further treatment for pulmonary edema hypercapnia Chest x-ray completed in ED reveals pulmonary edema 24-hour interval change 06/07/2024, -Patient is seen and evaluated in room at bedside; patient is doing well today, less shortness of breath less cough, no wheezing, no chest pain, no fever, no c hills, no hemoptysis --presently on 3 L nasal cannula, and his O2 saturation is 100% hemodynamically stable blood pressure is 116/73. Review shows WBC count is 7.5 hemoglobin is 15.2 basic metabolic profile is normal bicarb is 36 BUN 50 creatinine 1.55, steadily improving compared to creatinine of 1.81 on admission Continue bronchodilators and methylprednisolone 40 mg IV every 8 hours Continue diuretics, Lasix 40 mg IV push every 8 hours, continue Diamox to 50 mg p.o. twice daily Continue amiodarone and Eliquis 06/08 Patient is awake alert, sitting at the bedside, looks tired. Patient has been using BiPAP machine all night but he could not sleep well because of frequent epistaxis happened last night. Currently epistaxis is stopped. No other bleeding from anywhere else. No headache dizziness or new weakness numbness. No chest pain. He still complaining from dyspnea but improving, leg swelling is better. No other GI/ symptom He is currently on 4 L oxygen via nasal cannula, at home he was using 2 L. I discussed the risk and benefits of anticoagulation including Eliquis and he agrees. Eliquis was resumed and we will going to monitor for bleeding. He is currently on Protonix 40 mg p.o. daily 06/09 Patient still with breathing difficulty. He is not in respiratory distress while at rest but he has still has limited air entry in both sides. He is using BiPAP overnight IV Lasix lowered to twice daily. Creatinine was 1.9. Check creatinine tomorrow Metoprolol dose increased 150 twice daily and to 200 mg in the morning and 200 mg in the evening Patient also remains on IV Solu-Medrol 40 mg Echocardiogram done yesterday showing ejection fraction of 60 to 65%, it was suboptimal study 06/10 Patient overall doing okay His breathing is quiet but looks at baseline. He is currently on 3 L of oxygen which is same home dose of 2-3. Patient confirms to me he has a concentrator and machine at home for his oxygen. Also he confirms to me he has Eliquis at home. Patient adamant not to go to subacute rehab, he says he had bad experience last time. Patient thus will be discharged home with home care. However multiple home agency rejected the patient. We will discussed with the patient and still recommend to go to subacute rehab if he agrees He has superficial wound on the tip of his right second toe. Wound consult is requested Overall doing well. Pulmonary team cleared him for discharge. [employer] team recommend to monitor him 1 more day. After his IV Lasix switched to oral dose. Will monitor creatinine tomorrow Possible discharge in 24 to 48 hours 06/11 Patient was quite agitated overnight, he was hypoxic. He was transferred to the ICU after given some sedatives and placed back on BiPAP. Currently tolerating diet well and his oxygenation is improved Metoprolol dose was increased to 200 mg daily. Repeat chest x-ray showed cardiomegaly with pulm pulmonary vascular congestion, mild He remains on IV Solu-Medrol 60 mg. Normal Saline 75 mL started 06/12 Patient is still in the ICU, on BiPAP with a setting of 16/6 and FiO2 of 30% He is calm not agitated. Patient did not need extra doses of Haldol or Ativan He denies chest pain or any other new complaint He still adamant not to go To subacute rehab upon discharge despite the risk of noncompliance with BiPAP and other medical management 06/13 : Patient seen and evaluated bedside, patient transferred out of ICU, continue to have lower extremity edema, blood work reviewed platelets 73, serum chemistry sodium 133 potassium 3.6 creatinine 1.44, blood glucose in 300 06/14- patient seen and evaluated at bedside, patient remains on 2 L of oxygen, noted to have temp of 97.5 early in the morning. CBC reviewed WBC 8.8 platelet count of 77, serum chemistry sodium 134 potassium 4 creatinine 1.44, will increase dose of Lantus to 26 units twice daily, steroid wean down 06/15/2024 Patient is lying in the bed. Awake alert and oriented x 3. Requiring 2 L oxygen via nasal cannula. No complaints of chest pain or worsening shortness of breath. Still having bilateral lower extremity swelling and chronic venous stasis changes. No drainage from the leg wounds. Otherwise patient is being continued on Lasix 40 mg p.o. twice daily. He is also on IV Solu-Medrol, changed to prednisone 40 mg daily. Continue on DuoNebs and insulin regimen. Laboratory data showed WBC 12.3 hemoglobin 15.2 and platelets 96 sodium 133 potassium 4.7 chloride 97 bicarb is 30 BUN 65 and creatinine 1.37 and blood sugar 346. Calcium 8.5. Cardiology and pulmonary is on board. 06/16/2024 Patient is currently resting in the bed. Awake alert and oriented x 3. On oxygen at 3 L via nasal cannula. Patient required BiPAP last night. Denies any complaints of chest pain. Breathing status is slightly better. Bilateral leg swelling is still present. No cough or sputum production. Patient has been afebrile. Patient is being continued on IV Solu-Medrol changed to p.o. prednisone. Co ntinue on DuoNebs. Blood sugars controlled with insulin regimen. Laboratory data showed WBC 13.2 hemoglobin 15.0 and platelets 123 sodium 136 potassium 3.9 chloride 97 bicarb 35 BUN 64 and creatinine 1.44 and blood sugar 167 calcium 8.1. Pulmonary is on board. 06/17/2024 Patient is currently sitting on side of the bed. Awake alert and oriented. No complaints of chest pain or worsening shortness of breath. Patient still having bilateral lower extremity swelling and chronic venous stasis changes. No drainage from the wounds. Patient has been afebrile. Continued on oral diureti cs with Lasix and Aldactone. Also on Diamox. Laboratory data showed WBC 21.6 hemoglobin 13.6 and platelets 131 neutrophils 19.6 sodium 135 potassium 4.3 chloride 95 bicarb 36 BUN 16 creatinine 1.66 and calcium 8.5. 06/18/2024 Patient is resting in the bed. Awake alert and oriented. No complaints of chest pain. Requiring oxygen 2 L via nasal cannula. No cough or sputum production. Bilateral lower extremity swelling and chronic venous stasis changes. Continue on oral diuresis. No new laboratory data today. Pulmonary is on board. Blood sugar is fairly controlled. Continued on prednisone 40 mg daily along with breathing treatments. 06/19/2024 Patient is resting in the bed. Awake alert and oriented. Currently on 5 L oxygen via nasal cannula. Increased from yesterday. Denied any worsening chest pain or shortness of breath. Patient does have chronic lower extremity swelling and venous stasis Gonzalez wrap for now.. Afebrile. Laboratory data showed WBC improved to 13.1 hemoglobin 13.4 and platelets 129, sodium 134 potassium 4.2 chloride 94 bicarb 37 BUN 57 and creatinine 1.39 and blood sugar 128. Calcium 7.9. Continued on oral diuretics Lasix and spironolactone and insulin regimen. 06/20/2024 Patient is sitting on side of the bed. Awake alert and oriented x 3. On oxygen at 4 L via nasal cannula. No complaints of chest pain or worsening shortness of breath. Otherwise patient is still having bilateral lower extremity swelling and especially left lower extremity swelling with weeping serous discharge and blister formation. Patient has been afebrile. No nausea vomiting abdominal pain or diarrhea. Patient has been continued on prednisone 40 mg daily. Patient is on Lasix 40 mg twice daily, acetazolamide to 50 mg twice daily and spironolactone 25 mg daily. 06/21/2024 Patient is sitting on the side of the bed. Continues to have bilateral leg swelling. Left lower extremity skin wound popped with purulent drainage followed by serous discharge. Patient otherwise has been afebrile. On oxygen via nasal cannula at 4 L. Vascular surgery was consulted for possible I&D. Otherwise patient has been continuing Lasix 40 mg daily and Bactrim. Also on Diamox. Continued on insulin regimen. Patient is on prednisone 40 mg daily. Otherwise WBC still elevated at 16.9, hemoglobin 14.0 platelets 161 sodium 136 potassium 4.5 chloride 97 bicarb is 36 BUN 49 creatinine 1.27 blood sugar is 130. PHYSICAL EXAMINATION: GENERAL: The patient is alert and oriented x3, morbidly obese HEENT: Pupils are round and equally reacting to light. EOMI. CARDIOVASCULAR: S1 and S2 present. No murmurs, rubs, or gallops. PULMONARY: Chest is clear to auscultation, no wheezing or crackles. ABDOMEN: Soft, nontender, nondistended, normoactive bowel sounds. No palpable organomegaly. MUSCULOSKELETAL: No joint swelling or deformity. EXTREMITIES: Bilateral lower extremity swelling and venous stasis changes. Left lower extremity skin abscess with discharge below the knee. NEUROLOGICAL: Gross neurological examination did not reveal any focal deficits. SKIN: Bilateral lower extremity edema, wound bandage Objective - Vital Signs Vital signs: Vital Signs Temp 98.2 F 06/21/24 11:12 Pulse 85 06/21/24 11:18 Resp 14 06/21/24 11:18 BP 113/76 06/21/24 11:12 Pulse Ox 97 06/21/24 11:12 FiO2 30 06/21/24 11:12 Intake & Output 06/20/24 06/21/24 06/21/24 18:59 06:59 18:59 Intake Total 1196 658 458 Balance 1196 658 458 Weight 157.5 kg Intake: Oral 1196 658 458 Other: Voiding Method Toilet Toilet Toilet Urinal Urinal Urinal # Voids 2 - Labs CBC & Chem 7: 06/21/24 06:48 06/21/24 06:48 Labs: Abnormal Lab Results - Last 24 Hours (Table) 06/20/24 06/20/24 06/21/24 Range/Units 16:09 20:26 06:14 WBC (3.8-10.6) k/uL RDW (11.5-15.5) % Neutrophils # (1.3-7.7) k/uL Lymphocytes # (1.0-4.8) k/uL Sodium (137-145) mmol/L Chloride (98-107) mmol/L Carbon Dioxide (22-30) mmol/L BUN (9-20) mg/dL Creatinine (0.66-1.25) mg/dL Glucose (74-99) mg/dL POC Glucose (mg/dL) 228 H 252 H 144 H (70-110) mg/dL 06/21/24 06/21/24 06/21/24 Range/Units 06:48 06:48 11:23 WBC 16.9 H (3.8-10.6) k/uL RDW 16.9 H (11.5-15.5) % Neutrophils # 15.6 H (1.3-7.7) k/uL Lymphocytes # 0.5 L (1.0-4.8) k/uL Sodium 136 L (137-145) mmol/L Chloride 97 L (98-107) mmol/L Carbon Dioxide 36 H (22-30) mmol/L BUN 49 H (9-20) mg/dL Creatinine 1.27 H (0.66-1.25) mg/dL Glucose 130 H (74-99) mg/dL POC Glucose (mg/dL) 186 H (70-110) mg/dL Assessment and Plan Assessment: Assessment: * acute on chronic hypoxic hypercapnic respiratory failure * acute exacerbation of congestive heart failure diastolic dysfunction * Acute COPD exacerbation * chronic atrial fibrillation with controlled ventricular response * Bilateral lower extremity swelling and blister formation with venous stasis changes. * obstructive sleep apnea * history of hypertension * history of hyperlipidemia * BPH * diabetes mellitus type 2 on insulin * history of noncompliant * Morbid obesity BMI 44.8 * Left lower extremity skin wound with abscess. Plan: patient is currently in the medical floor. Patient is on 3 L via nasal cannula. BiPAP as needed. in regards to CHF exacerbation continue patient on Lasix, continue to monitor intake and output, continue Aldactone. Patient is also on Diamox. in regards to COPD exacerbation continue breathing treatment IV Solu-Medrol, wean down from 60mg every 6hr to prednisone 40mg daily. Pulmonary medicine following in regards to diabetes mellitus continue Accu-Cheks continue insulin cor rectional and Levemir monitor for hypoglycemia, dose of Lantus increased to 35 mg twice daily and NovoLog 9 units 3 times daily AC. in regards to atrial fibrillation anticoagulation with Eliquis, continue rate control with metoprolol. Amiodarone discontinued by cardiology during this hospitalization in regards to BPH continue Flomax Vascular surgery was consulted for possible I&D of skin abscess. Initiated on antibiotics, cefazolin. Follow-up wound cultures. DVT prophylaxis: Eliquis GI Prophylaxis: Protonix Continue with wound care and leg elevation. Pain management and follow-up closely. Anticipate discharge in the next 24 to 48 hours. Time with Patient: Greater than 30
[2024-06-22 06:04] LABS: Glucose,Whole Blood 150 mg/dL (70-110)
[2024-06-22 06:57] LABS: Anisocytosis Slight; Basophils # (A) 0.1 k/uL (0-0.2); Basophils % (A) 0 %; Eosinophils # (A) 0.1 k/uL (0-0.7); Eosinophils % (A) 0 %; HCT 43.6 % (39.0-53.0); HGB 13.4 gm/dL (13.0-17.5); Hypochromasia Marked; Lymphocytes # (A) 0.7 k/uL (1.0-4.8); Lymphocytes % (A) 4 %; MCH 28.8 pg (25.0-35.0); MCHC 30.7 g/dL (31.0-37.0); MCV 93.6 fL (80.0-100.0); Mean Platelet Volume 8.3; Monocytes # (A) 0.7 k/uL (0-1.0); Monocytes % (A) 4 %; Neutrophils # (A) 16.7 k/uL (1.3-7.7); Neutrophils % (A) 91 %; Platelet Count 141 k/uL (150-450); RBC 4.65 m/uL (4.30-5.90); RDW 16.9 % (11.5-15.5); WBC 18.3 k/uL (3.8-10.6)
[2024-06-22 07:20] LABS: African American GFR (CKD) 68 (>60 ml/min/1.73 sqM); Anion Gap 1 mmol/L; Blood Urea Nitrogen 48 mg/dL (9-20); Calcium 7.9 mg/dL (8.4-10.2); Carbon Dioxide 39 mmol/L (22-30); Chloride 97 mmol/L (98-107); Glucose 120 mg/dL (74-99); Non-African American GFR(CKD) 59 (>60 ml/min/1.73 sqM); Potassium 4.2 mmol/L (3.5-5.1); Sodium 137 mmol/L (137-145)
[2024-06-22 11:45] VITALS: BMI 26.0
[2024-06-22 11:55] LABS: Glucose,Whole Blood 161 mg/dL (70-110)
--- NOTE | 2024-06-22 12:00 | P.PN ---
Subjective Progress Note Date: 06/22/24 The patient is seen today June 22, 2024 in follow-up on the selective care unit. He is currently sitting up at the bedside. Awake and alert and no acute distress. He denies any worsening shortness of breath, cough or congestion. He is maintaining good O2 saturations in the 90s on 3 L/min per nasal cannula. He continues with Gonzalez wraps to the bilateral lower extremities. They remain quite edematous and with open wounds. He remains on cefazolin. He is continued on Lasix and Aldactone. Remains on Diamox. Continued on DuoNeb inhalations, Pulmicort and Perforomist inhalations, prednisone taper. Anticoagulated with Eliquis. White count 18.3. Hemoglobin 13.4. Platelets 141. Sodium 137. Potassium 4.2. Bicarb 39. BUN 48. Creatinine 1.31. Glucose 120. Objective - Vital Signs Vital signs: Vital Signs Temp 97.9 F 06/22/24 08:45 Pulse 90 06/22/24 09:42 Resp 19 06/22/24 08:45 BP 105/69 06/22/24 08:45 Pulse Ox 97 06/22/24 08:45 FiO2 30 06/21/24 20:55 Intake & Output 06/21/24 06/22/24 06/22/24 18:59 06:59 18:59 Intake Total 680 20 250 Output Total 700 Balance -20 20 250 Weight 89.5 kg 89.5 kg Intake: IV 20 10 Invasive Line 6 10 Invasive Line 7 10 10 Oral 680 240 Output: Urine 700 Other: Voiding Method Toilet Toilet Toilet Urinal Urinal Urinal # Voids 2 # Bowel Movements 1 - Exam GENERAL EXAM: Alert, obese, 59-year-old male, on 3 L nasal cannula, fairly comfortable in no apparent distress. HEAD: Normocephalic. EYES: Normal reaction of pupils, equal size. NOSE: Clear with pink turbinates. THROAT: No erythema or exudates. NECK: No masses, no JVD. CHEST: No chest wall deformity. LUNGS: Equal air entry with faint end expiratory wheeze, diminished. CVS: S1 and S2 normal with no audible murmur, irregular rhythm. ABDOMEN: No hepatosplenomegaly, normal bowel sounds, no guarding or rigidity. SPINE: No scoliosis or deformity SKIN: No rashes CENTRAL NERVOUS SYSTEM: No focal deficits, tone is normal in all 4 extremities. EXTREMITIES: Lower extremity edema and ulcerations, Gonzalez wraps in place, chronic venous stasis changes. Peripheral pulses are intact. - Labs CBC & Chem 7: 06/22/24 05:57 06/22/24 05:57 Labs: Abnormal Lab Results - Last 24 Hours (Table) 06/21/24 06/21/24 06/22/24 Range/Units 16:05 20:06 05:57 WBC 18.3 H (3.8-10.6) k/uL MCHC 30.7 L (31.0-37.0) g/dL RDW 16.9 H (11.5-15.5) % Plt Count 141 L (150-450) k/uL Neutrophils # 16.7 H (1.3-7.7) k/uL Lymphocytes # 0.7 L (1.0-4.8) k/uL Chloride (98-107) mmol/L Carbon Dioxide (22-30) mmol/L BUN (9-20) mg/dL Creatinine (0.66-1.25) mg/dL Glucose (74-99) mg/dL POC Glucose (mg/dL) 263 H 209 H (70-110) mg/dL Calcium (8.4-10.2) mg/dL 06/22/24 06/22/24 Range/Units 05:57 06:03 WBC (3.8-10.6) k/uL MCHC (31.0-37.0) g/dL RDW (11.5-15.5) % Plt Count (150-450) k/uL Neutrophils # (1.3-7.7) k/uL Lymphocytes # (1.0-4.8) k/uL Chloride 97 L (98-107) mmol/L Carbon Dioxide 39 H (22-30) mmol/L BUN 48 H (9-20) mg/dL Creatinine 1.31 H (0.66-1.25) mg/dL Glucose 120 H (74-99) mg/dL POC Glucose (mg/dL) 150 H (70-110) mg/dL Calcium 7.9 L (8.4-10.2) mg/dL Assessment and Plan Assessment: Acute on chronic hypoxemic and hypercapnic respiratory failure, secondary to chronic diastolic CHF exacerbation, as well as COPD exacerbation. Patient is currently on 3 L of oxygen by nasal cannula. No significant respiratory di stress Small bilateral pleural effusions/atelectasis Severe COPD, stage IV, with an FEV1 that is 22% of predicted Obstructive sleep apnea syndrome, noncompliant with noninvasive positive pressure ventilation Morbid obesity Stage IIIa chronic kidney disease Atrial fibrillation, anticoagulated with Eliquis Chronic lower extremity edema History of hypertension History of hyperlipidemia Former tobacco dependence Severe cellulitis of the bilateral lower extremities, remains on cefazolin Plan: The patient was seen and evaluated Medications and labs reviewed Remains stable on 3 L nasal cannula Continued on bronchodilators, steroids Continued on diuretics Continued on cefazolin Anticoagulated with Eliquis Discharge planning in place This patient was seen independently by the pulmonary nurse practitioner addressing pulmonary issues I have personally seen and examined the patient, performed the documentation and the assessment and plan as written. Number of minutes spent on the visit: 25 Dictation was produced using [employer] dictation software. Please excuse any grammatical, word or spelling errors.
[2024-06-22] MEDS: HYDROmorphone 1 MG/ML 1 ML SYRINGE IVP STA (16:39)
[2024-06-22] MEDS: LIDOCAINE 1% INJ 10MG/ML (20 ML MDV) SQ ONE (16:40)
[2024-06-22 16:47] LABS: Glucose,Whole Blood 277 mg/dL (70-110)
--- NOTE | 2024-06-22 16:53 | P.PCN ---
Description of Procedure: Preop diagnosis is hematoma left lower extremity anterior aspect Postop the same Procedure patient was seen in his room left lower extremity was prepped and draped in Prestel manner. Lidocaine for infiltrated some fluctuation noted there was a small opening noted from where patient had some bleeding before incision was made about 1 cm on the skin deepened through skin fat and there was some hematoma and some old clot which was removed those clots and tissue was sent for deep culture wound was irrigated with saline depth the wound was about 2 cm soft silver rope was used to pack the wound and applied patient tarted the procedure well
[2024-06-22 20:13] LABS: Glucose,Whole Blood 279 mg/dL (70-110)
--- NOTE | 2024-06-22 20:59 | P.PN ---
Subjective 59-year-old male, history of hypertension, hyperlipidemia, atrial fibrillation, asthma/COPD, sleep apnea, who comes from the [facility] because he was more lethargic and his pulse ox was low at the [facility]. Patient normally is on 2 L of oxygen at home. Patient himself wakes up and has no complaints however he is quick to go back to sleep. Patient has had no history of fever or chills patient denied any chest pain or palpitation. Patient has any abdominal pain patient has nausea vomiting diarrhea Blood work reveals WBC of 5.3, hemoglobin of 13.6 and platelet count of 144, sodium 138, potassium 4.6, BUNs/creatinine of 55/1.8 and blood glucose of 155, magnesium elevated at 2.5, lactic acid level of 1.5, troponin 0.023, ABG reveals pH of 7.24, pCO2 of 84, pO2 of 63; patient is admitted for further treatment for pulmonary edema hypercapnia Chest x-ray completed in ED reveals pulmonary edema 24-hour interval change 06/07/2024, -Patient is seen and evaluated in room at bedside; patient is doing well today, less shortness of breath less cough, no wheezing, no chest pain, no fever, no chills, no hemoptysis --presently on 3 L nasal cannula, and his O2 saturation is 100% hemodynamically stable blood pressure is 116/73. Review shows WBC count is 7.5 hemoglobin is 15.2 basic metabolic profile is normal bicarb is 36 BUN 50 creatinine 1.55, steadily improving compared to creatinine of 1.81 on admission Continue bronchodilators and methylprednisolone 40 mg IV every 8 hours Continue diuretics, Lasix 40 mg IV push every 8 hours, continue Diamox to 50 mg p.o. twice daily Continue amiodarone and Eliquis 06/08 Patient is awake alert, sitting at the bedside, looks tired. Patient has been using BiPAP machine all night but he could not sleep well because of frequent epistaxis happened last night. Currently epistaxis is stopp ed. No other bleeding from anywhere else. No headache dizziness or new weakness numbness. No chest pain. He still complaining from dyspnea but improving, leg swelling is better. No other GI/ symptom He is currently on 4 L oxygen via nasal cannula, at home he was using 2 L. I discussed the risk and benefits of anticoagulation including Eliquis and he agrees. Eliquis was resumed and we will going to monitor for bleeding. He is currently on Protonix 40 mg p.o. daily 06/09 Patient still with breathing difficulty. He is not in respiratory distress while at rest but he has still has limited air entry in both sides. He is using BiPAP overnight IV Lasix lowered to twice daily. Creatinine was 1.9. Check creatinine tomorrow Metoprolol dose increased 150 twice daily and to 200 mg in the morning and 200 mg in the evening Patient also remains on IV Solu-Medrol 40 mg Echocardiogram done yesterday showing ejection fraction of 60 to 65%, it was suboptimal study 06/10 Patient overall doing okay His breathing is quiet but looks at baseline. He is currently on 3 L of oxygen which is same home dose of 2-3. Patient confirms to me he has a concentrator and machine at home for his oxygen. Also he confirms to me he has Eliquis at home. Patient adamant not to go to subacute rehab, he says he had bad experience last time. Patient thus will be discharged home with home care. However multiple home agency rejected the patient. We will discussed with the patient and still recommend to go to subacute rehab if he agrees He has superficial wound on the tip of his right second toe. Wound consult is requested Overall doing well. Pulmonary team cleared him for discharge. [employer] Repr[employer] Operator jericho mendoza recommend to monitor him 1 more day. After his IV Lasix switched to oral dose. Will monitor creatinine tomorrow Possible discharge in 24 to 48 hours 06/11 Patient was quite agitated overnight, he was hypoxic. He was transferred to the ICU after given some sedatives and placed back on BiPAP. Currently tolerating diet well and his oxygenation is improved Metoprolol dose was increased to 200 mg daily. Repeat chest x-ray showed cardiomegaly with pulm pulmonary vascular congestion, mild He remains on IV Solu-Medrol 60 mg. Normal Saline 75 mL started 06/12 Patient is still in the ICU, on BiPAP with a setting of 16/6 and FiO2 of 30% He is calm not agitated. Patient did not need extra doses of Haldol or Ativan He denies chest pain or any other new complaint He still adamant not to go To subacute rehab upon discharge despite the risk of noncompliance with BiPAP and other medical management 06/22 resuming the care of the patient today Patient currently in room 385, looks much better than last time I saw him, mentation at baseline, energetic, sitting at the bedside. States he used the BiPAP machine Currently he was started on cefazolin recently status post I&D today for his lower extremity by vascular surgery team for his hematoma and sample sent for culture and sensitivity Objective - Vital Signs Vital signs: Vital Signs Temp 98.4 F 06/22/24 03:55 Pulse 76 06/22/24 03:55 Resp 18 06/22/24 03:55 BP 131/88 06/22/24 03:55 Pulse Ox 92 L 06/22/24 03:55 FiO2 30 06/21/24 20:55 Intake & Output 06/21/24 06/22/24 06/22/24 18:59 06:59 18:59 Intake Total 680 20 Output Total 700 Balance -20 20 Weight 89.5 kg Intake: IV 20 Invasive Line 6 10 Invasive Line 7 10 Oral 680 Output: Urine 700 Other: Voiding Method Toilet Toilet Urinal Urinal # Voids 2 # Bowel Movements 1 - Exam -GENERAL: The patient is alert and oriented x3, not in any acute distress. Well developed, well nourished. Obese. Looks tired HEENT: Pupils are round and equally reacting to light. EOMI. No scleral icterus. No conjunctival pallor. Normocephalic, atraumatic. No pharyngeal erythema. No thyromegaly. CARDIOVASCULAR: S1 and S2 present. No murmurs, rubs, or gallops. -PULMONARY: Chest is clear to auscultation, no wheezing , no crackles. Decreased air entry on both sides ABDOMEN: Soft, nontender, nondistended, normoactive bowel sounds. No palpable organomegaly. MUSCULOSKELETAL: No joint swelling or deformity. EXTREMITIES: No cyanosis, clubbing, or pedal edema. NEUROLOGICAL: Gross neurological examination did not reveal any focal deficits. SKIN: No rashes. no petechiae. - Labs CBC & Chem 7: 06/22/24 05:57 06/22/24 05:57 Labs: Abnormal Lab Results - Last 24 Hours (Table) 06/21/24 06/21/24 06/21/24 Range/Units 06:48 06:48 11:23 WBC 16.9 H (3.8-10.6) k/uL MCHC (31.0-37.0) g/dL RDW 16.9 H (11.5-15.5) % Plt Count (150-450) k/uL Neutrophils # 15.6 H (1.3-7.7) k/uL Lymphocytes # 0.5 L (1.0-4.8) k/uL Sodium 136 L (137-145) mmol/L Chloride 97 L (98-107) mmol/L Carbon Dioxide 36 H (22-30) mmol/L BUN 49 H (9-20) mg/dL Creatinine 1.27 H (0.66-1.25) mg/dL Glucose 130 H (74-99) mg/dL POC Glucose (mg/dL) 186 H (70-110) mg/dL Calcium (8.4-10.2) mg/dL 06/21/24 06/21/24 06/22/24 Range/Units 16:05 20:06 05:57 WBC 18.3 H (3.8-10.6) k/uL MCHC 30.7 L (31.0-37.0) g/dL RDW 16.9 H (11.5-15.5) % Plt Count 141 L (150-450) k/uL Neutrophils # 16.7 H (1.3-7.7) k/uL Lymphocytes # 0.7 L (1.0-4.8) k/uL Sodium (137-145) mmol/L Chloride (98-107) mmol/L Carbon Dioxide (22-30) mmol/L BUN (9-20) mg/dL Creatinine (0.66-1.25) mg/dL Glucose (74-99) mg/dL POC Glucose (mg/dL) 263 H 209 H (70-110) mg/dL Calcium (8.4-10.2) mg/dL 06/22/24 06/22/24 Range/Units 05:57 06:03 WBC (3.8-10.6) k/uL MCHC (31.0-37.0) g/dL RDW (11.5-15.5) % Plt Count (150-450) k/uL Neutrophils # (1.3-7.7) k/uL Lymphocytes # (1.0-4.8) k/uL Sodium (137-145) mmol/L Chloride 97 L (98-107) mmol/L Carbon Dioxide 39 H (22-30) mmol/L BUN 48 H (9-20) mg/dL Creatinine 1.31 H (0.66-1.25) mg/dL Glucose 120 H (74-99) mg/dL POC Glucose (mg/dL) 150 H (70-110) mg/dL Calcium 7.9 L (8.4-10.2) mg/dL Assessment and Plan Assessment: 1. Pulmonary edema, secondary to acute diastolic CHF with preserved ejection fraction, improved 2. Hypercapnia; patient has history of COPD/asthma; mild exacerbation, improved 3. Atrial fibrillation; controlled ventricular response, stable 4. Hyperglycemia; uncontrolled diabetes mellitus with long-term insulin use -- Lantus 15 units SQ twice daily; NovoLog 5 units SQ AC -Will monitor Accu-Cheks before every meal and at bedtime with insulin sliding scale 5. Hypertension; metoprolol 150 mg daily 6. Hyperlipidemia; 7. BPH 8. Noncompliance 9. Left lower extremity cellulitis s/p I&D for small hematoma pending culture and sensitivity. Patient continued on cefazolin Plan: Continue patient to the ICU Continue with BiPAP m At night Continue with oral Lasix, lowered to twice per day. Amiodarone was discontinued by correctional program specialist Continued on prolonged 200 mg a.m. Continue with insulin Monitor creatinine Wound consult Resumed Eliquis with risk and benefits explained for him and he is agreeable. Patient still at risk of bleeding and will be monitored closely Cardiology and pulmonary consult Labs and medication were reviewed.. Continue same treatment. Continue with symptomatic treatment. Resume home medication. Monitor labs and vitals. DVT and GI prophylaxis. Further recommendations as per clinical course of the patient DVT prophylaxis: Eliquis GI Prophylaxis: Protonix PT/OT: Pending Prognosis is guarded
[2024-06-23 06:26] LABS: Glucose,Whole Blood 96 mg/dL (70-110)
--- NOTE | 2024-06-23 09:24 | P.CONS ---
History of Present Illness - Reason for Consult Consult date: 06/22/24 Left leg chronic swelling with an abscess Requesting physician: Danielle Urena - Chief Complaint Left leg swelling and bleeding x 1 day - History of Present Illness Patient is a 59-year-old male with a past medical history significant for hypertension hyperlipidemia COPD heart failure atrial fibrillation has been in the hospital for more than 2 weeks now before this initial consultation patient apparently did have a bilateral lower extremity swelling and a previous history of right lower extremity infected hematoma and wound that seem to be healing well patient has not developed another area of swelling to the left upper leg just below the knee that started to bleed yesterday with concern for possible cellulitis hematoma infectious disease was consulted patient denies having any fever or any chills and no temperature has been recorded during this hospital stay patient has been complaining of pain to the left leg mostly dull aching to throbbing mild to moderate intensity without radiation into complaint of mostly bleeding denies having any purulent material draining from it patient did have a white count of 18.3 creatinine is 1.31 Review of Systems Positive point and negatives has been mentioned in the HPI, complete review of systems was performed and all other systems are negative 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 History of Any Multi-Drug Resistant Organisms: Acinetobacter (MDRO), MRSA Year Discovered:: 05/07/24-Acinetobacter MDRO; 04/14/24-MRSA MDRO Source:: Acinetobacter MDRO- rt leg; MRSA-rt foot, left leg Past Surgical History: Hernia Repair, Joint Replacement, Orthopedic Surgery Additional Past Surgical History / Comment(s): RT ARMAND, rt foot SX, Past Anesthesia/Blood Transfusion Reactions: No Reported Reaction Smoking Status: Former smoker - Past Family History Mother Family Medical History: No Reported History Medications and Allergies Home Medications Medication Instructions Recorded Confirmed Type hydrOXYzine pamoate [Vistaril] 50 mg PO HS PRN 07/09/22 06/04/24 History Atorvastatin [Lipitor] 10 mg PO HS 08/01/22 06/04/24 History Dapagliflozin Propanediol [Farxiga] 10 mg PO DAILY 30 Days #30 tab 09/10/22 06/04/24 Rx busPIRone HCl [Buspar] 5 mg PO TID 30 Days #90 tab 09/10/22 06/04/24 Rx Apixaban [Eliquis] 5 mg PO BID 12/12/23 06/04/24 History Finasteride [Proscar] 5 mg PO DAILY 12/12/23 06/04/24 History Sertraline [Zoloft] 50 mg PO DAILY 12/12/23 06/04/24 History Calcium Carbonate [Tums] 1,000 mg PO QID PRN tab 04/22/24 06/04/24 Rx Insulin Detemir (Levemir) [Levemir] 15 unit SQ BID@0700,2100 each 04/22/24 06/04/24 Rx Ipratropium-Albuterol Nebulize 3 ml INHALATION RT-Q2H PRN each 04/22/24 06/04/24 Rx [Duoneb 0.5 mg-3 mg/3 ml Soln] Ipratropium-Albuterol Nebulize 3 ml INHALATION RT-QID each 04/22/24 06/04/24 Rx [Duoneb 0.5 mg-3 mg/3 ml Soln] Metoprolol Tartrate [Lopressor] 150 mg PO BID tab 04/22/24 06/04/24 Rx diphenhydrAMINE [Benadryl] 25 mg PO BID PRN cap 04/22/24 06/04/24 Rx Naloxone HCl [Narcan] 4 mg NASAL DIRECTED PRN 05/01/24 06/04/24 History Prochlorperazine [Compazine] 10 mg PO Q8H PRN 05/01/24 06/04/24 History Tamsulosin [Flomax] 0.4 mg PO HS 05/01/24 06/04/24 History Torsemide [Demadex] 10 mg PO DAILY 05/01/24 06/04/24 History ALPRAZolam [Xanax] 0.25 mg PO TID #6 tab 05/15/24 06/04/24 Rx INSULIN ASPART (NovoLOG) [NovoLOG 5 unit SQ AC-TID each 05/15/24 06/04/24 Rx (formulary)] Budesonide-Formot 160-4.5 Mcg 2 puff INHALATION RT-BID each 05/18/24 06/04/24 Rx [Symbicort 160-4.5 Mcg Inhaler] Terbinafine [LamISIL] 250 mg PO DAILY tab 05/18/24 06/04/24 Rx acetaZOLAMIDE [Diamox] 250 mg PO BID tab 05/18/24 06/04/24 Rx Acetaminophen [Tylenol 8 Hour] 650 mg PO Q6H PRN 06/04/24 06/04/24 History Pantoprazole [Protonix] 40 mg PO DAILY 06/04/24 06/04/24 History Pregabalin [Lyrica] 50 mg PO BID 06/04/24 06/04/24 History Spironolactone [Aldactone] 25 mg PO DAILY 06/04/24 06/04/24 History oxyCODONE HCL/ACETAMINOPHEN 1 tab PO Q6HR PRN 06/04/24 06/04/24 History [Percocet 7.5-325 mg] predniSONE 10 mg PO DAILY 06/04/24 06/04/24 History Allergies Allergy/AdvReac Type Severity Reaction Status Date / Time No Known Allergies Allergy Verified 06/04/24 15:55 Physical Exam Vitals: Vital Signs Temp Pulse Pulse Resp BP Pulse Ox FiO2 06/22/24 09:42 90 06/22/24 09:32 88 06/22/24 09:20 92 06/22/24 08:45 97.9 F 91 19 105/69 97 06/22/24 08:00 91 19 06/22/24 03:55 98.4 F 76 18 131/88 92 L 06/22/24 00:10 67 18 107/67 96 06/21/24 21:17 93 06/21/24 21:06 92 06/21/24 21:05 92 06/21/24 20:55 95 30 06/21/24 19:51 97.8 F 82 20 113/71 97 06/21/24 16:20 98.5 F 74 19 99/75 06/21/24 15:16 85 18 06/21/24 15:08 85 18 06/21/24 14:00 80 18 06/21/24 11:18 85 14 06/21/24 11:12 98.2 F 80 17 113/76 97 30 06/21/24 11:08 82 14 30 Intake and Output 06/21/24 06/22/24 06/22/24 22:59 06:59 14:59 Intake Total 232 10 250 Balance 232 10 250 Intake: IV 10 10 10 Invasive Line 6 10 Invasive Line 7 10 10 Oral 222 240 Other: Voiding Method Toilet Toilet Toilet Urinal Urinal Urinal # Voids 2 Weight 89.5 kg GENERAL DESCRIPTION: Middle-aged male up in bed, no distress. No tachypnea or accessory muscle of respiration use. HEENT: Shows Pallor , no scleral icterus. Oral mucous membrane is dry. NECK: Trachea central, no thyromegaly. LUNGS: Unlabored breathing. Decreased breath sound at the base HEART: S1, S2, regular rate and rhythm. No loud murmur ABDOMEN: Soft, no tenderness , EXTREMITIES: Right lower extremity wound currently healing with no redness or any slough tissue, left leg just below the knee area did have an area of swelling and some bleeding no purulent drainage was noticed SKIN: No rash, no masses palpable. NEUROLOGICAL: The patient is awake, alert, oriented x3, mood and affect normal. Results CBC & Chem 7: 06/22/24 05:57 06/22/24 05:57 Labs: Abnormal Lab Results - Last 24 Hours (Table) 06/21/24 06/21/24 06/21/24 Range/Units 11:23 16:05 20:06 WBC (3.8-10.6) k/uL MCHC (31.0-37.0) g/dL RDW (11.5-15.5) % Plt Count (150-450) k/uL Neutrophils # (1.3-7.7) k/uL Lymphocytes # (1.0-4.8) k/uL Chloride (98-107) mmol/L Carbon Dioxide (22-30) mmol/L BUN (9-20) mg/dL Creatinine (0.66-1.25) mg/dL Glucose (74-99) mg/dL POC Glucose (mg/dL) 186 H 263 H 209 H (70-110) mg/dL Calcium (8.4-10.2) mg/dL 06/22/24 06/22/24 06/22/24 Range/Units 05:57 05:57 06:03 WBC 18.3 H (3.8-10.6) k/uL MCHC 30.7 L (31.0-37.0) g/dL RDW 16.9 H (11.5-15.5) % Plt Count 141 L (150-450) k/uL Neutrophils # 16.7 H (1.3-7.7) k/uL Lymphocytes # 0.7 L (1.0-4.8) k/uL Chloride 97 L (98-107) mmol/L Carbon Dioxide 39 H (22-30) mmol/L BUN 48 H (9-20) mg/dL Creatinine 1.31 H (0.66-1.25) mg/dL Glucose 120 H (74-99) mg/dL POC Glucose (mg/dL) 150 H (70-110) mg/dL Calcium 7.9 L (8.4-10.2) mg/dL Assessment and Plan (1) Leg wound, left Current Visit: Yes Status: Acute Code(s): S81.802A - UNSPECIFIED OPEN WOUND, LEFT LOWER LEG, INITIAL ENCOUNTER SNOMED Code(s): 87199254355883876 (2) Leukocytosis Current Visit: No Status: Acute Code(s): D72.829 - ELEVATED WHITE BLOOD CELL COUNT, UNSPECIFIED SNOMED Code(s): 322248764 (3) Venous stasis Current Visit: No Status: Acute Code(s): I87.8 - OTHER SPECIFIED DISORDERS OF VEINS SNOMED Code(s): 33569152 Plan: 1patient with chronic swelling to bilateral lower extremity did have a history of right leg infected hematoma that wound is healing without evidence of any cellulitis. 2patient with developing swelling and bleeding from the left upper leg concerning for possible hematoma at the question of possible infected hematoma with antibiotics for it. 3elevated white count possible related to the left leg hematoma/infected hematoma. 4await vascular surgery evaluation for drainage and culture. 5patient has been empirically started on cefazolin to continue while waiting for the culture to finalize. We will follow on clinical condition and cultures to further adjust medication if needed Thank you for this consultation we will follow the patient along with you Dictation was produced using [employer] dictation software. please excuse any grammatical, word or spelling errors. Time with Patient: Greater than 30
--- NOTE | 2024-06-23 10:53 | P.PN ---
Subjective Progress Note Date: 06/23/24 The patient is seen today June 22, 2024 in follow-up on the selective care unit. He is currently sitting up at the bedside. Awake and alert and no acute distress. He denies any worsening shortness of breath, cough or congestion. He is maintaining good O2 saturations in the 90s on 3 L/min per nasal cannula. He continues with Gonzalez wraps to the bilateral lower extremities. They remain quite edematous and with open wounds. He remains on cefazolin. He is continued on Lasix and Aldactone. Remains on Diamox. Continued on DuoNeb inhalations, Pulmicort and Perforomist inhalations, prednisone taper. Anticoagulated with Eliquis. White count 18.3. Hemoglobin 13.4. Platelets 141. Sodium 137. Potassium 4.2. Bicarb 39. BUN 48. Creatinine 1.31. Glucose 120. The patient is seen today June 23, 2024 in follow-up on the selective care unit. He is currently resting in bed. Awake and alert in no acute distress. He denies any worsening shortness of breath, cough or congestion. He did undergo debridement of the left lower extremity wound. He remains on cefazolin. He is continued on DuoNeb inhalations, Pulmicort and Perforomist inhalations, prednisone taper. Remains on oral diuretics. Anticoagulated with Eliquis. Glucose 96. Objective - Vital Signs Vital signs: Vital Signs Temp 97.7 F 06/23/24 04:10 Pulse 79 06/23/24 09:37 Resp 18 06/23/24 09:37 BP 98/67 06/23/24 07:59 Pulse Ox 98 06/23/24 07:59 FiO2 30 06/23/24 07:52 Intake & Output 06/22/24 06/23/24 06/23/24 18:59 06:59 18:59 Intake Total 740 10 Balance 740 10 Weight 89.5 kg 160 kg Intake: IV 20 10 Invasive Line 7 20 10 Oral 720 Other: Voiding Method Toilet Toilet Toilet Urinal Urinal Urinal # Voids 2 - Exam GENERAL EXAM: Alert, obese, 59-year-old male, sitting up in bed, on 3 L nasal cannula, comfortable in no apparent distress. HEAD: Normocephalic. EYES: Normal reaction of pupils, equal size. NOSE: Clear with pink turbinates. THROAT: No erythema or exudates. NECK: No masses, no JVD. CHEST: No chest wall deformity. LUNGS: Equal air entry with faint end expiratory wheeze, diminished. CVS: S1 and S2 normal with no audible murmur, irregular rhythm. ABDOMEN: No hepatosplenomegaly, normal bowel sounds, no guarding or rigidity. SPINE: No scoliosis or deformity SKIN: No rashes CENTRAL NERVOUS SYSTEM: No focal deficits, tone is normal in all 4 extremities. EXTREMITIES: Lower extremity edema and ulcerations, Gonzalez wraps in place, chronic venous stasis changes. Peripheral pulses are intact. - Labs CBC & Chem 7: 06/22/24 05:57 06/22/24 05:57 Labs: Abnormal Lab Results - Last 24 Hours (Table) 06/22/24 06/22/24 06/22/24 Range/Units 11:54 16:46 20:12 POC Glucose (mg/dL) 161 H 277 H 279 H (70-110) mg/dL Microbiology - Last 24 Hours (Table) 06/22/24 00:10 Gram Stain - Preliminary Leg - Left Assessment and Plan Assessment: Acute on chronic hypoxemic and hypercapnic respiratory failure, secondary to chronic diastolic CHF exacerbation, as well as COPD exacerbation. Patient is currently on 3 L of oxygen by nasal cannula Small bilateral pleural effusions/atelectasis Severe COPD, stage IV, with an FEV1 that is 22% of predicted Obstructive sleep apnea syndrome, noncompliant with noninvasive positive pressure ventilation Morbid obesity Stage IIIa chronic kidney disease Atrial fibrillation, anticoagulated with Eliquis Chronic lower extremity edema History of hypertension History of hyperlipidemia Former tobacco dependence Severe cellulitis of the bilateral lower extremities, remains on cefazolin, did undergo debridement 04/22/2024 Plan: The patient was seen and evaluated Medications and labs reviewed Cleared for discharge from the pulmonary standpoint Continue his home oxygen and pulmonary medications Complete a prednisone taper Antibiotics per ID service Discharge planning in place This patient was seen independently by the pulmonary nurse practitioner addressing pulmonary issues I have personally seen and examined the patient, performed the documentation and the assessment and plan as written. Number of minutes spent on the visit: 23 Dictation was produced using [employer] dictation software. Please excuse any grammatical, word or spelling errors.
--- NOTE | 2024-06-23 11:06 | P.PN ---
Subjective 59-year-old male, history of hypertension, hyperlipidemia, atrial fibrillation, asthma/COPD, sleep apnea, who comes from the half-way because he was more lethargic and his pulse ox was low at the half-way. Patient normally is on 2 L of oxygen at home. Patient himself wakes up and has no complaints however he is quick to go back to sleep. Patient has had no history of fever or chills patient denied any chest pain or palpitation. Patient has any abdominal pain patient has nausea vomiting diarrhea Blood work reveals WBC of 5.3, hemoglobin of 13.6 and platelet count of 144, sodium 138, potassium 4.6, BUNs/creatinine of 55/1.8 and blood glucose of 155, magnesium elevated at 2.5, lactic acid level of 1.5, troponin 0.023, ABG reveals pH of 7.24, pCO2 of 84, pO2 of 63; patient is admitted for further treatment for pulmonary edema hypercapnia Chest x-ray completed in ED reveals pulmonary edema 24-hour interval change 06/07/2024, -Patient is seen and evaluated in room at bedside; patient is doing well today, less shortness of breath less cough, no wheezing, no chest pain, no fever, no chills, no hemoptysis --presently on 3 L nasal cannula, and his O2 saturation is 100% hemodynamically stable blood pressure is 116/73. Review shows WBC count is 7.5 hemoglobin is 15.2 basic metabolic profile is normal bicarb is 36 BUN 50 creatinine 1.55, steadily improving compared to creatinine of 1.81 on admission Continue bronchodilators and methylprednisolone 40 mg IV every 8 hours Continue diuretics, Lasix 40 mg IV push every 8 hours, continue Diamox to 50 mg p.o. twice daily Continue amiodarone and Eliquis 06/08 Patient is awake alert, sitting at the bedside, looks tired. Patient has been using BiPAP machine all night but he could not sleep well because of frequent epistaxis happened last night. Currently epistaxis is stopp ed. No other bleeding from anywhere else. No headache dizziness or new weakness numbness. No chest pain. He still complaining from dyspnea but improving, leg swelling is better. No other GI/ symptom He is currently on 4 L oxygen via nasal cannula, at home he was using 2 L. I discussed the risk and benefits of anticoagulation including Eliquis and he agrees. Eliquis was resumed and we will going to monitor for bleeding. He is currently on Protonix 40 mg p.o. daily 06/09 Patient still with breathing difficulty. He is not in respiratory distress while at rest but he has still has limited air entry in both sides. He is using BiPAP overnight IV Lasix lowered to twice daily. Creatinine was 1.9. Check creatinine tomorrow Metoprolol dose increased 150 twice daily and to 200 mg in the morning and 200 mg in the evening Patient also remains on IV Solu-Medrol 40 mg Echocardiogram done yesterday showing ejection fraction of 60 to 65%, it was suboptimal study 06/10 Patient overall doing okay His breathing is quiet but looks at baseline. He is currently on 3 L of oxygen which is same home dose of 2-3. Patient confirms to me he has a concentrator and machine at home for his oxygen. Also he confirms to me he has Eliquis at home. Patient adamant not to go to subacute rehab, he says he had bad experience last time. Patient thus will be discharged home with home care. However multiple home agency rejected the patient. We will discussed with the patient and still recommend to go to subacute rehab if he agrees He has superficial wound on the tip of his right second toe. Wound consult is requested Overall doing well. Pulmonary team cleared him for discharge. Molder Hand jericho mendoza recommend to monitor him 1 more day. After his IV Lasix switched to oral dose. Will monitor creatinine tomorrow Possible discharge in 24 to 48 hours 06/11 Patient was quite agitated overnight, he was hypoxic. He was transferred to the ICU after given some sedatives and placed back on BiPAP. Currently tolerating diet well and his oxygenation is improved Metoprolol dose was increased to 200 mg daily. Repeat chest x-ray showed cardiomegaly with pulm pulmonary vascular congestion, mild He remains on IV Solu-Medrol 60 mg. Normal Saline 75 mL started 06/12 Patient is still in the ICU, on BiPAP with a setting of 16/6 and FiO2 of 30% He is calm not agitated. Patient did not need extra doses of Haldol or Ativan He denies chest pain or any other new complaint He still adamant not to go To subacute rehab upon discharge despite the risk of noncompliance with BiPAP and other medical management 06/22 resuming the care of the patient today Patient currently in room 385, looks much better than last time I saw him, mentation at baseline, energetic, sitting at the bedside. States he used the BiPAP machine Currently he was started on cefazolin recently status post I&D today for his lower extremity by vascular surgery team for his hematoma and sample sent for culture and sensitivity 06/23 Patient feels fine, fully awake and oriented, sitting and his bed side/age eating his popsicle Denies chest pain or dyspnea Since morning he told the staff he wants to go home today. Staff and I explained for him were still waiting for the wound culture and he remains on IV cefazolin so far he verbalized understanding but he is going to discussed with ID team Patient is also considering leaving AMA, I have lengthy discussion with the patient about the risks benefits and alternatives including but not limited to the risk of worsening infection, sepsis and/or , cardiac or heart disease worsening or organ dysfunction he verbalized understanding. Not sure if his going to leave AMA. However explained for the patient to follow-up with his PCP and As soon as possible or come to emergency room 1 if he changes his mind or develop any symptoms again he verbalized understanding Based upon my evaluation patient has capacity make medical decision I told the patient if he decides to leave AMA he should have someone to pick him up and he agrees Currently patient clinically remains stable pending wound culture while he is on IV cefazolin Continued on oral Lasix and oral prednisone Discussed with staff and RN and eladio case supervisormailroom manager of systems CONSTITUTIONAL: No fever, no malaise, no fatigue. HEENT: No recent visual problems or hearing problems. Denied any sore throat. CARDIOVASCULAR: No orthopnea, PND, no palpitations, no syncope. PULMONARY: No shortness of breath, no cough, no hemoptysis. GASTROINTESTINAL: No diarrhea, no nausea, no vomiting, no abdominal pain. Normoactive bowel sounds. NEUROLOGICAL: No headaches, no weakness, no numbness. Active Medications Generic Name Dose Route Start Last Admin Trade Name Freq PRN Reason Stop Dose Admin Acetazolamide 250 mg 06/04/24 21:00 06/23/24 08:03 Acetazolamide 250 Mg Tab PO 250 mg BID OBI Administration Albuterol/Ipratropium 3 ml 06/04/24 18:50 06/11/24 06:10 Ipratropium-Albuterol 3 Ml Neb INHALATION 3 ml RT-Q2H PRN Administration Shortness Of Breath Or Wheezing Albuterol/Ipratropium 3 ml 06/04/24 20:00 06/23/24 07:52 Ipratropium-Albuterol 3 Ml Neb INHALATION 3 ml RT-QID OBI Administration Apixaban 5 mg 06/04/24 21:00 06/23/24 08:02 Apixaban 5 Mg Tab PO 5 mg BID OBI Administration Protocol Atorvastatin Calcium 20 mg 06/08/24 21:00 06/22/24 21:13 Atorvastatin 20 Mg Tab PO 20 mg HS OBI Administration Budesonide 1 mg 06/11/24 10:00 06/23/24 07:52 Budesonide 1 Mg/2 Ml Nebu INHALATION 1 mg RT-BID OBI Administration Buspirone HCl 5 mg 06/04/24 22:00 06/23/24 08:02 Buspirone Hcl 5 Mg Tab PO 5 mg TID OBI Administration Finasteride 5 mg 06/05/24 09:00 06/23/24 08:03 Finasteride 5 Mg Tab PO 5 mg DAILY OBI Administration Formoterol Fumarate 20 mcg 06/11/24 10:00 06/23/24 07:52 Formoterol Fumarate 20 Mcg/2 Ml Nebu INHALATION 20 mcg RT-BID OBI Administration Furosemide 40 mg 06/10/24 16:00 06/23/24 08:03 Furosemide 40 Mg Tab PO 40 mg BID@0900,1600 OBI Administration Haloperidol Lactate 4 mg 06/11/24 10:03 Haloperidol Lactate 5 Mg/Ml 1 Ml Vial IVP Q4H PRN AGITATION Haloperidol Lactate 8 mg 06/11/24 10:03 Haloperidol Lactate 5 Mg/Ml 1 Ml Vial IVP Q4H PRN AGITATION Hydroxyzine Pamoate 50 mg 06/05/24 11:52 06/14/24 22:04 Hydroxyzine Pamoate 25 Mg Cap PO 50 mg HS PRN Administration ANXIETY/INSOMNIA Cefazolin Sodium 2 gm/ Sodium 50 mls @ 100 mls/hr 06/22/24 00:00 06/23/24 08:02 Chloride IVPB 100 mls/hr Q8HR OBI Administration Protocol Insulin Aspart 0 unit 06/10/24 21:00 06/23/24 06:43 Insulin Aspart (Novolog) 100 Unit/Ml Vial SQ Not Given ACHS OBI Protocol Insulin Aspart 9 unit 06/16/24 07:30 06/23/24 07:08 Insulin Aspart (Novolog) 100 Unit/Ml Vial SQ 9 unit AC-TID OBI Administration Insulin Detemir 35 unit 06/14/24 21:30 06/23/24 07:08 Insulin Detemir (Levemir) 100 Unit/Ml Syr SQ 35 unit BID@0700,2100 OBI Administration Lorazepam 1 mg 06/11/24 10:04 Lorazepam 2 Mg/Ml Inj IV Q6H PRN AGITATION Metoprolol Tartrate 200 mg 06/10/24 09:00 06/22/24 09:14 Metoprolol Tartrate 50 Mg Tab PO 200 mg DAILY OBI Administration Metoprolol Tartrate 200 mg 06/11/24 21:00 06/22/24 21:14 Metoprolol Tartrate 50 Mg Tab PO 200 mg HS OBI Administration Miscellaneous Information 1 each 06/13/24 10:20 Potassium Replacement Protocol 1 Each Misc MISCELLANE DAILY PRN Per Protocol Protocol Naloxone HCl 0.2 mg 06/05/24 11:57 Naloxone 0.4 Mg/Ml 1 Ml Vial IVP Q2M PRN Opioid Reversal Oxycodone/Acetaminophen 1 each 06/21/24 14:28 06/23/24 04:06 Oxycodone-Apap 7.5-325mg 1 Each Tab PO 1 each Q6HR PRN Administration Pain Pantoprazole Sodium 40 mg 06/05/24 07:30 06/23/24 07:08 Pantoprazole 40 Mg Tablet PO 40 mg AC-[id number] OBI Administration Prednisone 40 mg 06/16/24 09:00 06/23/24 08:03 Prednisone 20 Mg Tab PO 40 mg DAILY OBI Administration Pregabalin 50 mg 06/04/24 21:00 06/23/24 08:03 Pregabalin 50 Mg Cap PO 50 mg BID OBI Administration Prochlorperazine Maleate 10 mg 06/04/24 18:50 Prochlorperazine 10 Mg Tab PO Q8H PRN Nausea And Vomiting Sertraline HCl 50 mg 06/05/24 09:00 06/23/24 08:03 Sertraline 50 Mg Tab PO 50 mg DAILY OBI Administration Spironolactone 25 mg 06/05/24 09:00 06/23/24 08:03 Spironolactone 25 Mg Tab PO 25 mg DAILY OBI Administration Tamsulosin HCl 0.4 mg 06/04/24 21:00 06/22/24 21:13 Tamsulosin 0.4 Mg Cap.Er.24h PO 0.4 mg HS OBI Administration Objective - Vital Signs Vital signs: Vital Signs Temp 97.7 F 06/23/24 04:10 Pulse 79 06/23/24 09:37 Resp 18 06/23/24 09:37 BP 98/67 06/23/24 07:59 Pulse Ox 98 06/23/24 07:59 FiO2 30 06/23/24 07:52 Intake & Output 06/22/24 06/23/24 06/23/24 18:59 06:59 18:59 Intake Total 740 10 Balance 740 10 Weight 89.5 kg 160 kg Intake: IV 20 10 Invasive Line 7 20 10 Oral 720 Other: Voiding Method Toilet Toilet Toilet Urinal Urinal Urinal # Voids 2 - Exam -GENERAL: The patient is alert and oriented x3, not in any acute distress. Well developed, well nourished. Obese. Looks tired HEENT: Pupils are round and equally reacting to light. EOMI. No scleral icterus. No conjunctival pallor. Normocephalic, atraumatic. No pharyngeal erythema. No thyromegaly. CARDIOVASCULAR: S1 and S2 present. No murmurs, rubs, or gallops. -PULMONARY: Chest is clear to auscultation, no wheezing , no crackles. Decreased air entry on both sides ABDOMEN: Soft, nontender, nondistended, normoactive bowel sounds. No palpable organomegaly. MUSCULOSKELETAL: No joint swelling or deformity. EXTREMITIES: No cyanosis, clubbing, or pedal edema. NEUROLOGICAL: Gross neurological examination did not reveal any focal deficits. SKIN: No rashes. no petechiae. - Labs CBC & Chem 7: 06/22/24 05:57 06/22/24 05:57 Labs: Abnormal Lab Results - Last 24 Hours (Table) 06/22/24 06/22/24 06/22/24 Range/Units 11:54 16:46 20:12 POC Glucose (mg/dL) 161 H 277 H 279 H (70-110) mg/dL Microbiology - Last 24 Hours (Table) 06/22/24 00:10 Gram Stain - Preliminary Leg - Left Assessment and Plan Assessment: 1. Pulmonary edema, secondary to acute diastolic CHF with preserved ejection fraction, improved 2. Hypercapnia; patient has history of COPD/asthma; mild exacerbation, improved 3. Atrial fibrillation; controlled ventricular response, stable 4. Hyperglycemia; uncontrolled diabetes mellitus with long-term insulin use -- Lantus 15 units SQ twice daily; NovoLog 5 units SQ AC -Will monitor Accu-Cheks before every meal and at bedtime with insulin sliding scale 5. Hypertension; metoprolol 150 mg daily 6. Hyperlipidemia; 7. BPH 8. Noncompliance 9. Left lower extremity cellulitis s/p I&D for small hematoma pending culture and sensitivity. Patient continued on cefazolin Plan: Patient out of the ICU on select unit, currently he is on select unit Continue with BiPAP At night Continue with oral Lasix, lowered to twice per day. Amiodarone was discontinued by fireboat operator Currently on cefazolin status post I&D of his left lower extremity pending wound culture Continue with insulin Per medical resident Monitor creatinine continue with prednisone Wound consult Resumed Eliquis with risk and benefits explained for him and he is agreeable. Patient still at risk of bleeding and will be monitored closely Cardiology and pulmonary consult Labs and medication were reviewed.. Continue same treatment. Continue with symptomatic treatment. Resume home medication. Monitor labs and vitals. DVT and GI prophylaxis. Further recommendations as per clinical course of the patie nt DVT prophylaxis: Eliquis GI Prophylaxis: Protonix PT/OT: Pending Prognosis is guarded
[2024-06-23 11:51] LABS: Glucose,Whole Blood 91 mg/dL (70-110)
[2024-06-23] MEDS: METOPROLOL TARTRATE 50 MG TAB PO SCH (12:24)
[2024-06-23 16:43] LABS: Glucose,Whole Blood 338 mg/dL (70-110)
[2024-06-23] MEDS: CEFEPIME 2 GM in SODIUM CHLORIDE 0.9% 100 ML IVPB SCH (17:50)
[2024-06-23 20:32] LABS: Glucose,Whole Blood 289 mg/dL (70-110)
[2024-06-24 06:23] LABS: Glucose,Whole Blood 131 mg/dL (70-110)
[2024-06-24 07:49] LABS: Anisocytosis Slight; Basophils # (A) 0.1 k/uL (0-0.2); Basophils % (A) 0 %; Eosinophils # (A) 0.1 k/uL (0-0.7); Eosinophils % (A) 0 %; HCT 42.7 % (39.0-53.0); HGB 13.7 gm/dL (13.0-17.5); Hypochromasia Moderate; Lymphocytes # (A) 0.7 k/uL (1.0-4.8); Lymphocytes % (A) 4 %; MCH 29.4 pg (25.0-35.0); MCHC 32.1 g/dL (31.0-37.0); MCV 91.7 fL (80.0-100.0); Mean Platelet Volume 8.3; Monocytes # (A) 0.7 k/uL (0-1.0); Monocytes % (A) 3 %; Neutrophils # (A) 17.3 k/uL (1.3-7.7); Neutrophils % (A) 92 %; Platelet Count 125 k/uL (150-450); RBC 4.66 m/uL (4.30-5.90); RDW 17.3 % (11.5-15.5); WBC 18.8 k/uL (3.8-10.6)
[2024-06-24 08:17] LABS: African American GFR (CKD) 69 (>60 ml/min/1.73 sqM); Anion Gap 5 mmol/L; Blood Urea Nitrogen 46 mg/dL (9-20); Calcium 8.3 mg/dL (8.4-10.2); Carbon Dioxide 32 mmol/L (22-30); Chloride 99 mmol/L (98-107); Glucose 108 mg/dL (74-99); Non-African American GFR(CKD) 60 (>60 ml/min/1.73 sqM); Potassium 4.2 mmol/L (3.5-5.1); Sodium 136 mmol/L (137-145)
--- NOTE | 2024-06-24 10:02 | P.PN ---
Subjective Progress Note Date: 06/24/24 The patient is seen today June 22, 2024 in follow-up on the selective care unit. He is currently sitting up at the bedside. Awake and alert and no acute distress. He denies any worsening shortness of breath, cough or congestion. He is maintaining good O2 saturations in the 90s on 3 L/min per nasal cannula. He continues with Gonzalez wraps to the bilateral lower extremities. They remain quite edematous and with open wounds. He remains on cefazolin. He is continued on Lasix and Aldactone. Remains on Diamox. Continued on DuoNeb inhalations, Pulmicort and Perforomist inhalations, prednisone taper. Anticoagulated with Eliquis. White count 18.3. Hemoglobin 13.4. Platelets 141. Sodium 137. Potassium 4.2. Bicarb 39. BUN 48. Creatinine 1.31. Glucose 120. The patient is seen today June 23, 2024 in follow-up on the selective care unit. He is currently resting in bed. Awake and alert in no acute distress. He denies any worsening shortness of breath, cough or congestion. He did undergo debridement of the left lower extremity wound. He remains on cefazolin. He is continued on DuoNeb inhalations, Pulmicort and Perforomist inhalations, prednisone taper. Remains on oral diuretics. Anticoagulated with Eliquis. Glucose 96. The patient is seen today June 24, 2024 in follow-up on the selective care unit. He is currently sitting up at the bedside. Awake and alert in no acute distress. He denies any worsening shortness of breath, cough or congestion. He is maintaining good O2 saturations in the 90s on 3 L/min per nasal cannula. White count 18.8. Hemoglobin 13.7. Platelets 125. Sodium 136. Potassium 4.2. Bicarb 32. BUN 46. Creatinine 1.29. Glucose 131. Left leg wound culture positive for Klebsiella and Enterococcus faecalis. Final sensitivities are still pending. He is currently on cefepime and daptomycin. Remains on DuoNeb inhalations, Pulmicort and Perforomist inhalations, prednisone taper. Remains on oral diuretics. Anticoagulated with Eliquis. Objective - Vital Signs Vital signs: Vital Signs Temp 98.0 F 06/24/24 03:10 Pulse 80 06/24/24 08:19 Resp 18 06/24/24 03:10 BP 130/78 06/24/24 03:10 Pulse Ox 95 06/24/24 07:58 FiO2 30 06/24/24 05:11 Intake & Output 06/23/24 06/24/24 06/24/24 18:59 06:59 18:59 Intake Total 118 240 Output Total 800 Balance 118 -800 240 Weight 161.5 kg Intake: Oral 118 240 Output: Urine 800 Other: Voiding Method Toilet Toilet Urinal Urinal - Exam GENERAL EXAM: Alert, obese, pleasant 59-year-old male, on 3 L nasal cannula, in no apparent distress. HEAD: Normocephalic. EYES: Normal reaction of pupils, equal size. NOSE: Clear with pink turbinates. THROAT: No erythema or exudates. NECK: No masses, no JVD. CHEST: No chest wall deformity. LUNGS: Equal air entry with faint end expiratory wheeze, diminished. CVS: S1 and S2 normal with no audible murmur, irregular rhythm. ABDOMEN: No hepatosplenomegaly, normal bowel sounds, no guarding or rigidity. SPINE: No scoliosis or deformity SKIN: No rashes CENTRAL NERVOUS SYSTEM: No focal deficits, tone is normal in all 4 extremities. EXTREMITIES: Lower extremity edema and ulcerations, Gonzalez wraps in place, chronic venous stasis changes. Peripheral pulses are intact. - Labs CBC & Chem 7: 06/24/24 06:26 06/24/24 06:26 Labs: Abnormal Lab Results - Last 24 Hours (Table) 06/23/24 06/23/24 06/24/24 Range/Units 16:42 20:31 06:21 WBC (3.8-10.6) k/uL RDW (11.5-15.5) % Plt Count (150-450) k/uL Neutrophils # (1.3-7.7) k/uL Lymphocytes # (1.0-4.8) k/uL Sodium (137-145) mmol/L Carbon Dioxide (22-30) mmol/L BUN (9-20) mg/dL Creatinine (0.66-1.25) mg/dL Glucose (74-99) mg/dL POC Glucose (mg/dL) 338 H 289 H 131 H (70-110) mg/dL Calcium (8.4-10.2) mg/dL 06/24/24 06/24/24 Range/Units 06:26 06:26 WBC 18.8 H (3.8-10.6) k/uL RDW 17.3 H (11.5-15.5) % Plt Count 125 L (150-450) k/uL Neutrophils # 17.3 H (1.3-7.7) k/uL Lymphocytes # 0.7 L (1.0-4.8) k/uL Sodium 136 L (137-145) mmol/L Carbon Dioxide 32 H (22-30) mmol/L BUN 46 H (9-20) mg/dL Creatinine 1.29 H (0.66-1.25) mg/dL Glucose 108 H (74-99) mg/dL POC Glucose (mg/dL) (70-110) mg/dL Calcium 8.3 L (8.4-10.2) mg/dL Microbiology - Last 24 Hours (Table) 06/22/24 16:35 Gram Stain - Preliminary Leg - Left Wound Culture - Preliminary Klebsiella pneum subsp pneum Enterococcus faecalis 06/22/24 00:10 Gram Stain - Preliminary Leg - Left Wound Culture - Preliminary Presumptive MRSA Klebsiella Pneum subsp ozaenae Assessment and Plan Assessment: Acute on chronic hypoxemic and hypercapnic respiratory failure, secondary to chronic diastolic CHF exacerbation, as well as COPD exacerbation. Patient is currently on 3 L of oxygen by nasal cannula Small bilateral pleural effusions/atelectasis Severe cellulitis of the bilateral lower extremities, wound cultures positive for Klebsiella and Enterococcus, sensitivity pending. Currently on cefepime and daptomycin. He did undergo debridement 04/22/2024 Severe COPD, stage IV, with an FEV1 that is 22% of predicted Obstructive sleep apnea syndrome, noncompliant with noninvasive positive pressure ventilation Morbid obesity Stage IIIa chronic kidney disease Atrial fibrillation, anticoagulated with Eliquis Chronic lower extremity edema History of hypertension History of hyperlipidemia Former tobacco dependence Plan: The patient was seen and evaluated Medications and labs reviewed Currently on cefepime and daptomycin Final wound culture sensitivity still pending Antibiotics per ID service Upon discharge to continue his home oxygen, pulmonary medications To complete a prednisone taper This patient was seen independently by the pulmonary nurse practitioner addressing pulmonary issues I have personally seen and examined the patient, performed the documentation and the assessment and plan as written. Number of minutes spent on the visit: 24 Dictation was produced using [employer] software. Please excuse any grammatical, word or spelling errors.
[2024-06-24 11:44] LABS: Glucose,Whole Blood 408 mg/dL (70-110)
--- NOTE | 2024-06-24 15:11 | P.PN ---
Subjective Progress Note Date: 06/23/24 Principal diagnosis: Reason for follow-up is left leg infected hematoma Patient is a 59-year-old male with a past medical history significant for hypertension hyperlipidemia COPD heart failure atrial fibrillation and a previous right lower extremity infected hematoma now with development of a hematoma to the left leg that has been drained by vascular surgery. On today's evaluation that is 06/23/2024, Patient is afebrile this morning patient denies having any chest pain or cough, the patient is currently on 3 L nasal cannula oxygen, patient denies any abdominal pain no diarrhea no nausea no vomiting, pain to the left leg is currently controlled. Patient did not have any lab draw today local culture growing MRSA and Klebsiella Objective - Vital Signs Vital signs: Vital Signs Temp 97.7 F 06/23/24 04:10 Pulse 78 06/23/24 15:32 Resp 18 06/23/24 15:32 BP 99/70 06/23/24 12:06 Pulse Ox 96 06/23/24 12:06 FiO2 30 06/23/24 07:52 Intake & Output 06/22/24 06/23/24 06/23/24 18:59 06:59 18:59 Intake Total 740 10 Balance 740 10 Weight 89.5 kg 160 kg Intake: IV 20 10 Invasive Line 7 20 10 Oral 720 Other: Voiding Method Toilet Toilet Toilet Urinal Urinal Urinal # Voids 2 - Exam GENERAL DESCRIPTION: Middle-age male up in bed in no distress RESPIRATORY SYSTEM: Unlabored breathing , decreased breath sounds at bases HEART: S1 S2 regular rate and rhythm , ABDOMEN: Soft , no tenderness EXTREMITIES: Left lower extremity is currently dressed minimal drainage on the dressing - Labs CBC & Chem 7: 06/24/24 06:26 06/24/24 06:26 Labs: Abnormal Lab Results - Last 24 Hours (Table) 06/22/24 06/22/24 Range/Units 16:46 20:12 POC Glucose (mg/dL) 277 H 279 H (70-110) mg/dL Microbiology - Last 24 Hours (Table) 06/22/24 16:35 Gram Stain - Preliminary Leg - Left 06/22/24 00:10 Gram Stain - Preliminary Leg - Left Wound Culture - Preliminary Presumptive MRSA Klebsiella Pneum subsp ozaenae Assessment and Plan (1) Leg wound, left Current Visit: Yes Status: Acute Code(s): S81.802A - UNSPECIFIED OPEN WOUND, LEFT LOWER LEG, INITIAL ENCOUNTER SNOMED Code(s): 89344646198781698 (2) Leukocytosis Current Visit: No Status: Acute Code(s): D72.829 - ELEVATED WHITE BLOOD CELL COUNT, UNSPECIFIED SNOMED Code(s): 067312464 (3) Venous stasis Current Visit: No Status: Acute Code(s): I87.8 - OTHER SPECIFIED DISORDERS OF VEINS SNOMED Code(s): 23381627 Plan: 1patient with chronic swelling to bilateral lower extremity did have a history of right leg infected hematoma that wound is healing without evidence of any cellulitis. 2patient with developing swelling and bleeding from the left upper leg concerning for possible hematoma at the question of possible infected hematoma with antibiotics for it. 3elevated white count possible related to the left leg hematoma/infected hematoma. 4patient is status post vascular surgery evaluation drainage of the hematoma and culture which are now growing Klebsiella and MRSA 5I will discontinue cefazolin and start the patient on daptomycin and cefepime while waiting for sensitivity to finalize Dictation was produced using [employer] software. please excuse any grammatical, word or spelling errors.
--- NOTE | 2024-06-24 15:11 | P.PN ---
Subjective Progress Note Date: 06/24/24 Principal diagnosis: Reason for follow-up is left leg infected hematoma Patient is a 59-year-old male with a past medical history significant for hypertension hyperlipidemia COPD heart failure atrial fibrillation and a previous right lower extremity infected hematoma now with development of a hematoma to the left leg that has been drained by vascular surgery. On today's evaluation that is 06/24/2024,the patient denies any fever or any chills, patient is breathing comfortably on 3 L current oxygen the patient denies chest pain shortness of breath and no significant cough, patient denies abdominal pain, no nausea vomiting or diarrhea. Patient denies any worsening pain to the left leg Patient culture positive for MRSA Klebsiella and Enterococcus white count is 18.8, creatinine is 1.2 Objective - Vital Signs Vital signs: Vital Signs Temp 97.5 F L 06/24/24 09:25 Pulse 96 06/24/24 11:26 Resp 18 06/24/24 09:25 BP 125/78 06/24/24 09:25 Pulse Ox 97 06/24/24 09:25 FiO2 30 06/24/24 05:11 Intake & Output 06/23/24 06/24/24 06/24/24 18:59 06:59 18:59 Intake Total 118 480 Output Total 800 Balance 118 -800 480 Weight 161.5 kg Intake: Oral 118 480 Output: Urine 800 Other: Voiding Method Toilet Toilet Toilet Urinal Urinal Urinal - Exam GENERAL DESCRIPTION: Middle-age male up in bed in no distress RESPIRATORY SYSTEM: Unlabored breathing , decreased breath sounds at bases HEART: S1 S2 regular rate and rhythm , ABDOMEN: Soft , no tenderness EXTREMITIES: Left lower extremity is currently dressed minimal drainage on the dressing - Labs CBC & Chem 7: 06/24/24 06:26 06/24/24 06:26 Labs: Abnormal Lab Results - Last 24 Hours (Table) 06/23/24 06/23/24 06/24/24 Range/Units 16:42 20:31 06:21 WBC (3.8-10.6) k/uL RDW (11.5-15.5) % Plt Count (150-450) k/uL Neutrophils # (1.3-7.7) k/uL Lymphocytes # (1.0-4.8) k/uL Sodium (137-145) mmol/L Carbon Dioxide (22-30) mmol/L BUN (9-20) mg/dL Creatinine (0.66-1.25) mg/dL Glucose (74-99) mg/dL POC Glucose (mg/dL) 338 H 289 H 131 H (70-110) mg/dL Calcium (8.4-10.2) mg/dL 06/24/24 06/24/24 06/24/24 Range/Units 06:26 06:26 11:42 WBC 18.8 H (3.8-10.6) k/uL RDW 17.3 H (11.5-15.5) % Plt Count 125 L (150-450) k/uL Neutrophils # 17.3 H (1.3-7.7) k/uL Lymphocytes # 0.7 L (1.0-4.8) k/uL Sodium 136 L (137-145) mmol/L Carbon Dioxide 32 H (22-30) mmol/L BUN 46 H (9-20) mg/dL Creatinine 1.29 H (0.66-1.25) mg/dL Glucose 108 H (74-99) mg/dL POC Glucose (mg/dL) 408 H (70-110) mg/dL Calcium 8.3 L (8.4-10.2) mg/dL Microbiology - Last 24 Hours (Table) 06/22/24 00:10 Gram Stain - Final Leg - Left Wound Culture - Final Methicillin resist S. aureus Klebsiella Pneum subsp ozaenae 06/22/24 16:35 Gram Stain - Preliminary Leg - Left Wound Culture - Preliminary Klebsiella pneum subsp pneum Enterococcus faecalis Assessment and Plan (1) Leg wound, left Current Visit: Yes Status: Acute Code(s): S81.802A - UNSPECIFIED OPEN WOUND, LEFT LOWER LEG, INITIAL ENCOUNTER SNOMED Code(s): 84470971346871309 (2) Leukocytosis Current Visit: No Status: Acute Code(s): D72.829 - ELEVATED WHITE BLOOD CELL COUNT, UNSPECIFIED SNOMED Code(s): 785335075 (3) Venous stasis Current Visit: No Status: Acute Code(s): I87.8 - OTHER SPECIFIED DISORDERS OF VEINS SNOMED Code(s): 30166181 Plan: 1patient with chronic swelling to bilateral lower extremity did have a history of right leg infected hematoma that wound is healing without evidence of any cellulitis. 2patient with developing swelling and bleeding from the left upper leg concerning for possible hematoma at the question of possible infected hematoma with antibiotics for it. 3elevated white count possible related to the left leg hematoma/infected hematoma. 4patient is status post vascular surgery evaluation drainage of the hematoma and culture which are now growing Klebsiella and MRSA 5patient currently being treated with daptomycin and cefepime on the basis of the culture will likely need a midline and short course of 5 antibiotic as we do not have any good oral option for MRSA Dictation was produced using [employer] software. please excuse any grammatical, word or spelling errors.
[2024-06-24 16:52] LABS: Glucose,Whole Blood 141 mg/dL (70-110)
[2024-06-24 20:39] LABS: Glucose,Whole Blood 311 mg/dL (70-110)
--- NOTE | 2024-06-24 22:37 | P.PN ---
Subjective 59-year-old male, history of hypertension, hyperlipidemia, atrial fibrillation, asthma/COPD, sleep apnea, who comes from the snf because he was more lethargic and his pulse ox was low at the snf. Patient normally is on 2 L of oxygen at home. Patient himself wakes up and has no complaints however he is quick to go back to sleep. Patient has had no history of fever or chills patient denied any chest pain or palpitation. Patient has any abdominal pain patient has nausea vomiting diarrhea Blood work reveals WBC of 5.3, hemoglobin of 13.6 and platelet count of 144, sodium 138, potassium 4.6, BUNs/creatinine of 55/1.8 and blood glucose of 155, magnesium elevated at 2.5, lactic acid level of 1.5, troponin 0.023, ABG reveals pH of 7.24, pCO2 of 84, pO2 of 63; patient is admitted for further treatment for pulmonary edema hypercapnia Chest x-ray completed in ED reveals pulmonary edema 24-hour interval change 06/07/2024, -Patient is seen and evaluated in room at bedside; patient is doing well today, less shortness of breath less cough, no wheezing, no chest pain, no fever, no chills, no hemoptysis --presently on 3 L nasal cannula, and his O2 saturation is 100% hemodynamically stable blood pressure is 116/73. Review shows WBC count is 7.5 hemoglobin is 15.2 basic metabolic profile is normal bicarb is 36 BUN 50 creatinine 1.55, steadily improving compared to creatinine of 1.81 on admission Continue bronchodilators and methylprednisolone 40 mg IV every 8 hours Continue diuretics, Lasix 40 mg IV push every 8 hours, continue Diamox to 50 mg p.o. twice daily Continue amiodarone and Eliquis 06/08 Patient is awake alert, sitting at the bedside, looks tired. Patient has been using BiPAP machine all night but he could not sleep well because of frequent epistaxis happened last night. Currently epistaxis is stopp ed. No other bleeding from anywhere else. No headache dizziness or new weakness numbness. No chest pain. He still complaining from dyspnea but improving, leg swelling is better. No other GI/ symptom He is currently on 4 L oxygen via nasal cannula, at home he was using 2 L. I discussed the risk and benefits of anticoagulation including Eliquis and he agrees. Eliquis was resumed and we will going to monitor for bleeding. He is currently on Protonix 40 mg p.o. daily 06/09 Patient still with breathing difficulty. He is not in respiratory distress while at rest but he has still has limited air entry in both sides. He is using BiPAP overnight IV Lasix lowered to twice daily. Creatinine was 1.9. Check creatinine tomorrow Metoprolol dose increased 150 twice daily and to 200 mg in the morning and 200 mg in the evening Patient also remains on IV Solu-Medrol 40 mg Echocardiogram done yesterday showing ejection fraction of 60 to 65%, it was suboptimal study 06/10 Patient overall doing okay His breathing is quiet but looks at baseline. He is currently on 3 L of oxygen which is same home dose of 2-3. Patient confirms to me he has a concentrator and machine at home for his oxygen. Also he confirms to me he has Eliquis at home. Patient adamant not to go to subacute rehab, he says he had bad experience last time. Patient thus will be discharged home with home care. However multiple home agency rejected the patient. We will discussed with the patient and still recommend to go to subacute rehab if he agrees He has superficial wound on the tip of his right second toe. Wound consult is requested Overall doing well. Pulmonary team cleared him for discharge. Fireworks Assembler jericho mendoza recommend to monitor him 1 more day. After his IV Lasix switched to oral dose. Will monitor creatinine tomorrow Possible discharge in 24 to 48 hours 06/11 Patient was quite agitated overnight, he was hypoxic. He was transferred to the ICU after given some sedatives and placed back on BiPAP. Currently tolerating diet well and his oxygenation is improved Metoprolol dose was increased to 200 mg daily. Repeat chest x-ray showed cardiomegaly with pulm pulmonary vascular congestion, mild He remains on IV Solu-Medrol 60 mg. Normal Saline 75 mL started 06/12 Patient is still in the ICU, on BiPAP with a setting of 16/6 and FiO2 of 30% He is calm not agitated. Patient did not need extra doses of Haldol or Ativan He denies chest pain or any other new complaint He still adamant not to go To subacute rehab upon discharge despite the risk of noncompliance with BiPAP and other medical management 06/22 resuming the care of the patient today Patient currently in room 385, looks much better than last time I saw him, mentation at baseline, energetic, sitting at the bedside. States he used the BiPAP machine Currently he was started on cefazolin recently status post I&D today for his lower extremity by vascular surgery team for his hematoma and sample sent for culture and sensitivity 06/23 Patient feels fine, fully awake and oriented, sitting and his bed side/age eating his popsicle Denies chest pain or dyspnea Since morning he told the staff he wants to go home today. Staff and I explained for him were still waiting for the wound culture and he remains on IV cefazolin so far he verbalized understanding but he is going to discussed with ID team Patient is also considering leaving AMA, I have lengthy discussion with the patient about the risks benefits and alternatives including but not limited to the risk of worsening infection, sepsis and/or , cardiac or heart disease worsening or organ dysfunction he verbalized understanding. Not sure if his going to leave AMA. However explained for the patient to follow-up with his PCP and As soon as possible or come to emergency room 1 if he changes his mind or develop any symptoms again he verbalized understanding Based upon my evaluation patient has capacity make medical decision I told the patient if he decides to leave AMA he should have someone to pick him up and he agrees Currently patient clinically remains stable pending wound culture while he is on IV cefazolin Continued on oral Lasix and oral prednisone Discussed with staff and RN and eladio case planner 06/24 Patient feels fine Mentation at baseline No chest pain or respiratory symptoms Patient still eager to go home Pending wound culture from his left leg while kept on IV antibiotic cefazolin Objective - Vital Signs Vital signs: Vital Signs Temp 98.4 F 06/24/24 20:55 Pulse 91 06/24/24 20:55 Resp 18 06/24/24 20:55 BP 107/61 06/24/24 20:55 Pulse Ox 96 06/24/24 20:55 FiO2 30 06/24/24 05:11 Intake & Output 06/24/24 06/24/24 06/25/24 06:59 18:59 06:59 Intake Total 720 540 Output Total 800 200 Balance -800 720 340 Weight 161.5 kg Intake: Oral 720 540 Output: Urine 800 200 Other: Voiding Method Toilet Toilet Toilet Urinal Urinal Urinal - Exam -GENERAL: The patient is alert and oriented x3, not in any acute distress. Well developed, well nourished. Obese. Looks tired HEENT: Pupils are round and equally reacting to light. EOMI. No scleral icterus. No conjunctival pallor. Normocephalic, atraumatic. No pharyngeal erythema. No thyromegaly. CARDIOVASCULAR: S1 and S2 present. No murmurs, rubs, or gallops. -PULMONARY: Chest is clear to auscultation, no wheezing , no crackles. Decreased air entry on both sides ABDOMEN: Soft, nontender, nondistended, normoactive bowel sounds. No palpable organomegaly. MUSCULOSKELETAL: No joint swelling or deformity. EXTREMITIES: No cyanosis, clubbing, or pedal edema. NEUROLOGICAL: Gross neurological examination did not reveal any focal deficits. SKIN: No rashes. no petechiae. - Labs CBC & Chem 7: 06/24/24 06:26 06/24/24 06:26 Labs: Abnormal Lab Results - Last 24 Hours (Table) 06/24/24 06/24/24 06/24/24 Range/Units 06:21 06:26 06:26 WBC 18.8 H (3.8-10.6) k/uL RDW 17.3 H (11.5-15.5) % Plt Count 125 L (150-450) k/uL Neutrophils # 17.3 H (1.3-7.7) k/uL Lymphocytes # 0.7 L (1.0-4.8) k/uL Sodium 136 L (137-145) mmol/L Carbon Dioxide 32 H (22-30) mmol/L BUN 46 H (9-20) mg/dL Creatinine 1.29 H (0.66-1.25) mg/dL Glucose 108 H (74-99) mg/dL POC Glucose (mg/dL) 131 H (70-110) mg/dL Calcium 8.3 L (8.4-10.2) mg/dL 06/24/24 06/24/24 06/24/24 Range/Units 11:42 16:51 20:38 WBC (3.8-10.6) k/uL RDW (11.5-15.5) % Plt Count (150-450) k/uL Neutrophils # (1.3-7.7) k/uL Lymphocytes # (1.0-4.8) k/uL Sodium (137-145) mmol/L Carbon Dioxide (22-30) mmol/L BUN (9-20) mg/dL Creatinine (0.66-1.25) mg/dL Glucose (74-99) mg/dL POC Glucose (mg/dL) 408 H 141 H 311 H (70-110) mg/dL Calcium (8.4-10.2) mg/dL Microbiology - Last 24 Hours (Table) 06/22/24 16:35 Gram Stain - Preliminary Leg - Left Wound Culture - Preliminary Klebsiella pneum subsp pneum Enterococcus faecalis Presumptive MRSA 06/22/24 00:10 Gram Stain - Final Leg - Left Wound Culture - Final Methicillin resist S. aureus Klebsiella Pneum subsp ozaenae Assessment and Plan Assessment: 1. Pulmonary edema, secondary to acute diastolic CHF with preserved ejection fraction, improved 2. Hypercapnia; patient has history of COPD/asthma; mild exacerbation, improved 3. Atrial fibrillation; controlled ventricular response, stable 4. Hyperglycemia; uncontrolled diabetes mellitus with long-term insulin use -- Lantus 15 units SQ twice daily; NovoLog 5 units SQ AC -Will monitor Accu-Cheks before every meal and at bedtime with insulin sliding scale 5. Hypertension; metoprolol 150 mg daily 6. Hyperlipidemia; 7. BPH 8. Noncompliance 9. Left lower extremity cellulitis s/p I&D for small hematoma pending culture and sensitivity. Patient continued on cefazolin Plan: Patient out of the ICU on select unit, currently he is on select unit Continue with BiPAP At night Continue with oral Lasix, lowered to twice per day. Amiodarone was discontinued by neurobiologist Currently on cefazolin status post I&D of his left lower extremity pending wound culture Continue with insulin Per coin machine collector supervisor Monitor creatinine continue with prednisone Wound consult Resumed Eliquis with risk and benefits explained for him and he is agreeable. Patient still at risk of bleeding and will be monitored closely Cardiology and pulmonary consult Labs and medication were reviewed.. Continue same treatment. Continue with symptomatic treatment. Resume home medication. Monitor labs and vitals. DVT and GI prophylaxis. Further recommendations as per clinical course of the patient DVT prophylaxis: Eliquis GI Prophylaxis: Protonix PT/OT: Pending Prognosis is guarded
[2024-06-25 06:13] LABS: Glucose,Whole Blood 119 mg/dL (70-110)
--- NOTE | 2024-06-25 11:04 | P.PN ---
Subjective Progress Note Date: 06/25/24 The patient is seen today June 22, 2024 in follow-up on the selective care unit. He is currently sitting up at the bedside. Awake and alert and no acute distress. He denies any worsening shortness of breath, cough or congestion. He is maintaining good O2 saturations in the 90s on 3 L/min per nasal cannula. He continues with Gonzalez wraps to the bilateral lower extremities. They remain quite edematous and with open wounds. He remains on cefazolin. He is continued on Lasix and Aldactone. Remains on Diamox. Continued on DuoNeb inhalations, Pulmicort and Perforomist inhalations, prednisone taper. Anticoagulated with Eliquis. White count 18.3. Hemoglobin 13.4. Platelets 141. Sodium 137. Potassium 4.2. Bicarb 39. BUN 48. Creatinine 1.31. Glucose 120. The patient is seen today June 23, 2024 in follow-up on the selective care unit. He is currently resting in bed. Awake and alert in no acute distress. He denies any worsening shortness of breath, cough or congestion. He did undergo debridement of the left lower extremity wound. He remains on cefazolin. He is continued on DuoNeb inhalations, Pulmicort and Perforomist inhalations, prednisone taper. Remains on oral diuretics. Anticoagulated with Eliquis. Glucose 96. The patient is seen today June 24, 2024 in follow-up on the selective care unit. He is currently sitting up at the bedside. Awake and alert in no acute distress. He denies any worsening shortness of breath, cough or congestion. He is maintaining good O2 saturations in the 90s on 3 L/min per nasal cannula. White count 18.8. Hemoglobin 13.7. Platelets 125. Sodium 136. Potassium 4.2. Bicarb 32. BUN 46. Creatinine 1.29. Glucose 131. Left leg wound culture positive for Klebsiella and Enterococcus faecalis. Final sensitivities are still pending. He is currently on cefepime and daptomycin. Remains on DuoNeb inhalations, Pulmicort and Perforomist inhalations, prednisone taper. Remains on oral diuretics. Anticoagulated with Eliquis. The patient is seen today June 25, 2024 in follow-up on the selective care unit. He is awake and alert in no acute distress. Sitting up at the bedside. Denies any worsening shortness of breath, cough or congestion. Maintaining good O2 saturations in the upper 90s on 3 L/min per nasal cannula. He is afebrile. Hemodynamically stable. Left leg wound cultures were positive for Klebsiella pneumoniae, Enterococcus faecalis and MRSA. Glucose 119. He remains on DuoNeb and elations, Pulmicort and performance inhalations, prednisone taper. Remains on oral diuretics. Anticoagulated with Eliquis. He remains on cefepime and daptomycin per ID service. Objective - Vital Signs Vital signs: Vital Signs Temp 97.7 F 06/25/24 08:00 Pulse 84 06/25/24 08:28 Resp 18 06/25/24 08:00 BP 116/80 06/25/24 08:00 Pulse Ox 97 06/25/24 08:08 FiO2 30 06/24/24 05:11 Intake & Output 06/24/24 06/25/24 06/25/24 18:59 06:59 18:59 Intake Total 720 540 240 Output Total 300 Balance 720 240 240 Weight 161.6 kg Intake: Oral 720 540 240 Output: Urine 300 Other: Voiding Method Toilet Toilet Urinal Urinal - Exam GENERAL EXAM: Alert, obese, 59-year-old male, sitting up in bed, on 3 L nasal cannula, in no apparent distress. HEAD: Normocephalic. EYES: Normal reaction of pupils, equal size. NOSE: Clear with pink turbinates. THROAT: No erythema or exudates. NECK: No masses, no JVD. CHEST: No chest wall deformity. LUNGS: Equal air entry with faint end expiratory wheeze, diminished. CVS: S1 and S2 normal with no audible murmur, irregular rhythm. ABDOMEN: No hepatosplenomegaly, normal bowel sounds, no guarding or rigidity. SPINE: No scoliosis or deformity SKIN: No rashes CENTRAL NERVOUS SYSTEM: No focal deficits, tone is normal in all 4 extremities. EXTREMITIES: Lower extremity edema and ulcerations, Gonzalez wraps in place, chronic venous stasis changes. Peripheral pulses are intact. - Labs CBC & Chem 7: 06/24/24 06:26 06/24/24 06:26 Labs: Abnormal Lab Results - Last 24 Hours (Table) 06/24/24 06/24/24 06/24/24 Range/Units 11:42 16:51 20:38 POC Glucose (mg/dL) 408 H 141 H 311 H (70-110) mg/dL 06/25/24 Range/Units 06:12 POC Glucose (mg/dL) 119 H (70-110) mg/dL Microbiology - Last 24 Hours (Table) 06/22/24 16:35 Gram Stain - Preliminary Leg - Left Wound Culture - Preliminary Klebsiella pneum subsp pneum Enterococcus faecalis Presumptive MRSA 06/22/24 00:10 Gram Stain - Final Leg - Left Wound Culture - Final Methicillin resist S. aureus Klebsiella Pneum subsp ozaenae Assessment and Plan Assessment: Acute on chronic hypoxemic and hypercapnic respiratory failure, secondary to chronic diastolic CHF exacerbation, as well as COPD exacerbation. Patient is currently on 3 L of oxygen by nasal cannula Small bilateral pleural effusions/atelectasis Severe cellulitis of the bilateral lower extremities, wound cultures positive for Klebsiella, Enterococcus and MRSA. Currently on cefepime and daptomycin. He did undergo debridement 04/22/2024 Severe COPD, stage IV, with an FEV1 that is 22% of predicted Obstructive sleep apnea syndrome, noncompliant with noninvasive positive pressure ventilation Morbid obesity Stage IIIa chronic kidney disease Atrial fibrillation, anticoagulated with Eliquis Chronic lower extremity edema History of hypertension History of hyperlipidemia Former tobacco dependence Plan: The patient was seen and evaluated Medications and labs reviewed Currently on cefepime and daptomycin Wound culture sensitivity reviewed Antibiotics per ID service The patient is refusing IV antibiotics in the outpatient setting Case management working on discharge To continue his home oxygen, pulmonary medications To complete a prednisone taper Follow-up in our office in 1 week This patient was seen independently by the pulmonary nurse practitioner addressing pulmonary issues I have personally seen and examined the patient, performed the documentation and the assessment and plan as written. Number of minutes spent on the visit: 25 Dictation was produced using [employer] dictation software. Please excuse any grammatical, word or spelling errors.
--- NOTE | 2024-06-25 11:29 | P.PN ---
Subjective 59-year-old male, history of hypertension, hyperlipidemia, atrial fibrillation, asthma/COPD, sleep apnea, who comes [facility] because he was more lethargic and his pulse ox was low at the [facility]. Patient normally is on 2 L of oxygen at home. Patient himself wakes up and has no complaints however he is quick to go back to sleep. Patient has had no history of fever or chills patient denied any chest pain or palpitation. Patient has any abdominal pain patient has nausea vomiting diarrhea Blood work reveals WBC of 5.3, hemoglobin of 13.6 and platelet count of 144, sodium 138, potassium 4.6, BUNs/creatinine of 55/1.8 and blood glucose of 155, magnesium elevated at 2.5, lactic acid level of 1.5, troponin 0.023, ABG reveals pH of 7.24, pCO2 of 84, pO2 of 63; patient is admitted for further treatment for pulmonary edema hypercapnia Chest x-ray completed in ED reveals pulmonary edema 24-hour interval change 06/07/2024, -Patient is seen and evaluated in room at bedside; patient is doing well today, less shortness of breath less cough, no wheezing, no chest pain, no fever, no chills, no hemoptysis --presently on 3 L nasal cannula, and his O2 saturation is 100% hemodynamically stable blood pressure is 116/73. Review shows WBC count is 7.5 hemoglobin is 15.2 basic metabolic profile is normal bicarb is 36 BUN 50 creatinine 1.55, steadily improving compared to creatinine of 1.81 on admission Continue bronchodilators and methylprednisolone 40 mg IV every 8 hours Continue diuretics, Lasix 40 mg IV push every 8 hours, continue Diamox to 50 mg p.o. twice daily Continue amiodarone and Eliquis 06/08 Patient is awake alert, sitting at the bedside, looks tired. Patient has been using BiPAP machine all night but he could not sleep well because of frequent epistaxis happened last night. Currently epistaxis is stopp ed. No other bleeding from anywhere else. No headache dizziness or new weakness numbness. No chest pain. He still complaining from dyspnea but improving, leg swelling is better. No other GI/ symptom He is currently on 4 L oxygen via nasal cannula, at home he was using 2 L. I discussed the risk and benefits of anticoagulation including Eliquis and he agrees. Eliquis was resumed and we will going to monitor for bleeding. He is currently on Protonix 40 mg p.o. daily 06/09 Patient still with breathing difficulty. He is not in respiratory distress while at rest but he has still has limited air entry in both sides. He is using BiPAP overnight IV Lasix lowered to twice daily. Creatinine was 1.9. Check creatinine tomorrow Metoprolol dose increased 150 twice daily and to 200 mg in the morning and 200 mg in the evening Patient also remains on IV Solu-Medrol 40 mg Echocardiogram done yesterday showing ejection fraction of 60 to 65%, it was suboptimal study 06/10 Patient overall doing okay His breathing is quiet but looks at baseline. He is currently on 3 L of oxygen which is same home dose of 2-3. Patient confirms to me he has a concentrator and machine at home for his oxygen. Also he confirms to me he has Eliquis at home. Patient adamant not to go to subacute rehab, he says he had bad experience last time. Patient thus will be discharged home with home care. However multiple home agency rejected the patient. We will discussed with the patient and still recommend to go to subacute rehab if he agrees He has superficial wound on the tip of his right second toe. Wound consult is requested Overall doing well. Pulmonary team cleared him for discharge. [employer] Supervisor jericho mendoza recommend to monitor him 1 more day. After his IV Lasix switched to oral dose. Will monitor creatinine tomorrow Possible discharge in 24 to 48 hours 06/11 Patient was quite agitated overnight, he was hypoxic. He was transferred to the ICU after given some sedatives and placed back on BiPAP. Currently tolerating diet well and his oxygenation is improved Metoprolol dose was increased to 200 mg daily. Repeat chest x-ray showed cardiomegaly with pulm pulmonary vascular congestion, mild He remains on IV Solu-Medrol 60 mg. Normal Saline 75 mL started 06/12 Patient is still in the ICU, on BiPAP with a setting of 16/6 and FiO2 of 30% He is calm not agitated. Patient did not need extra doses of Haldol or Ativan He denies chest pain or any other new complaint He still adamant not to go To subacute rehab upon discharge despite the risk of noncompliance with BiPAP and other medical management 06/22 resuming the care of the patient today Patient currently in room 385, looks much better than last time I saw him, mentation at baseline, energetic, sitting at the bedside. States he used the BiPAP machine Currently he was started on cefazolin recently status post I&D today for his lower extremity by vascular surgery team for his hematoma and sample sent for culture and sensitivity 06/23 Patient feels fine, fully awake and oriented, sitting and his bed side/age eating his popsicle Denies chest pain or dyspnea Since morning he told the staff he wants to go home today. Staff and I explained for him were still waiting for the wound culture and he remains on IV cefazolin so far he verbalized understanding but he is going to discussed with ID team Patient is also considering leaving AMA, I have lengthy discussion with the patient about the risks benefits and alternatives including but not limited to the risk of worsening infection, sepsis and/or , cardiac or heart disease worsening or organ dysfunction he verbalized understanding. Not sure if his going to leave AMA. However explained for the patient to follow-up with his PCP and As soon as possible or come to emergency room 1 if he changes his mind or develop any symptoms again he verbalized understanding Based upon my evaluation patient has capacity make medical decision I told the patient if he decides to leave AMA he should have someone to pick him up and he agrees Currently patient clinically remains stable pending wound culture while he is on IV cefazolin Continued on oral Lasix and oral prednisone Discussed with staff and RN and eladio complex case manager 06/24 Patient feels fine Mentation at baseline No chest pain or respiratory symptoms Patient still eager to go home Pending wound culture from his left leg while kept on IV antibiotic 06/25 Patient with no new symptoms He uses CPAP machine this morning. No chest pain or dyspnea He is on cefepime and daptomycin Wound culture not finalized yet but showing Klebsiella, Enterococcus and presumptive MRSA Objective - Vital Signs Vital signs: Vital Signs Temp 97.7 F 06/25/24 08:00 Pulse 84 06/25/24 08:28 Resp 18 06/25/24 08:00 BP 116/80 06/25/24 08:00 Pulse Ox 97 06/25/24 08:08 FiO2 30 06/24/24 05:11 Intake & Output 06/24/24 06/25/24 06/25/24 18:59 06:59 18:59 Intake Total 720 540 240 Output Total 300 Balance 720 240 240 Weight 161.6 kg Intake: Oral 720 540 240 Output: Urine 300 Other: Voiding Method Toilet Toilet Toilet Urinal Urinal Urinal - Exam -GENERAL: The patient is alert and oriented x3, not in any acute distress. Well developed, well nourished. Obese. Looks tired HEENT: Pupils are round and equally reacting to light. EOMI. No scleral icterus. No conjunctival pallor. Normocephalic, atraumatic. No pharyngeal erythema. No thyromegaly. CARDIOVASCULAR: S1 and S2 present. No murmurs, rubs, or gallops. -PULMONARY: Chest is clear to auscultation, no wheezing , no crackles. Decreased air entry on both sides ABDOMEN: Soft, nontender, nondistended, normoactive bowel sounds. No palpable organomegaly. MUSCULOSKELETAL: No joint swelling or deformity. EXTREMITIES: No cyanosis, clubbing, or pedal edema. NEUROLOGICAL: Gross neurological examination did not reveal any focal deficits. SKIN: No rashes. no petechiae. - Labs CBC & Chem 7: 06/24/24 06:26 06/24/24 06:26 Labs: Abnormal Lab Results - Last 24 Hours (Table) 06/24/24 06/24/24 06/24/24 Range/Units 11:42 16:51 20:38 POC Glucose (mg/dL) 408 H 141 H 311 H (70-110) mg/dL 06/25/24 Range/Units 06:12 POC Glucose (mg/dL) 119 H (70-110) mg/dL Microbiology - Last 24 Hours (Table) 06/22/24 16:35 Gram Stain - Preliminary Leg - Left Wound Culture - Preliminary Klebsiella pneum subsp pneum Enterococcus faecalis Presumptive MRSA 06/22/24 00:10 Gram Stain - Final Leg - Left Wound Culture - Final Methicillin resist S. aureus Klebsiella Pneum subsp ozaenae Assessment and Plan Assessment: 1. Pulmonary edema, secondary to acute diastolic CHF with preserved ejection fraction, improved 2. Hypercapnia; patient has history of COPD/asthma; mild exacerbation, improved 3. Atrial fibrillation; controlled ventricular response, stable 4. Hyperglycemia; uncontrolled diabetes mellitus with long-term insulin use -- Lantus 15 units SQ twice daily; NovoLog 5 units SQ AC -Will monitor Accu-Cheks before every meal and at bedtime with insulin sliding scale 5. Hypertension; metoprolol 150 mg daily 6. Hyperlipidemia; 7. BPH 8. Noncompliance 9. Left lower extremity cellulitis s/p I&D for small hematoma pending culture and sensitivity. Patient continued on cefazolin Plan: Patient out of the ICU on select unit, currently he is on select unit Continue with BiPAP At night Continue with oral Lasix, lowered to twice per day. Amiodarone was discontinued by home care attendant Currently on cefazolin status post I&D of his left lower extremity pending wound culture Continue with insulin Per vendor management specialist Monitor creatinine continue with prednisone Wound consult Resumed Eliquis with risk and benefits explained for him and he is agreeable. Patient still at risk of bleeding and will be monitored closely Cardiology and pulmonary consult Labs and medication were reviewed.. Continue same treatment. Continue with symptomatic treatment. Resume home medication. Monitor labs and vitals. DVT and GI prophylaxis. Further recommendations as per clinical course of the patient DVT prophylaxis: Eliquis GI Prophylaxis: Protonix PT/OT: Pending Prognosis is guarded
[2024-06-25 11:53] LABS: Glucose,Whole Blood 143 mg/dL (70-110)
--- NOTE | 2024-06-25 15:39 | P.PN ---
Subjective Progress Note Date: 06/25/24 Principal diagnosis: Reason for follow-up is left leg infected hematoma Patient is a 59-year-old male with a past medical history significant for hypertension hyperlipidemia COPD heart failure atrial fibrillation and a previous right lower extremity infected hematoma now with development of a hematoma to the left leg that has been drained by vascular surgery. On today's evaluation that is 06/25/2024,the patient remains to be afebrile, patient is on 3 L nasal cannula supplemental oxygen and denies any shortness of breath no chest pain or cough.Patient denies having any nausea or vomiting, no abdominal pain and no diarrhea and denies any worsening pain to the lower extremity. No new lab has been obtained today culture positive for Klebsiella Enterococcus and MRSA Objective - Vital Signs Vital signs: Vital Signs Temp 97.7 F 06/25/24 08:00 Pulse 84 06/25/24 08:28 Resp 18 06/25/24 08:00 BP 116/80 06/25/24 08:00 Pulse Ox 97 06/25/24 08:08 FiO2 30 06/24/24 05:11 Intake & Output 06/24/24 06/25/24 06/25/24 18:59 06:59 18:59 Intake Total 720 540 240 Output Total 300 Balance 720 240 240 Weight 161.6 kg Intake: Oral 720 540 240 Output: Urine 300 Other: Voiding Method Toilet Toilet Urinal Urinal - Exam GENERAL DESCRIPTION: Middle-age male up in bed in no distress RESPIRATORY SYSTEM: Unlabored breathing , decreased breath sounds at bases HEART: S1 S2 regular rate and rhythm , ABDOMEN: Soft , no tenderness EXTREMITIES: Left lower extremity is currently dressed minimal drainage on the dressing - Labs CBC & Chem 7: 06/24/24 06:26 06/24/24 06:26 Labs: Abnormal Lab Results - Last 24 Hours (Table) 06/24/24 06/24/24 06/24/24 Range/Units 11:42 16:51 20:38 POC Glucose (mg/dL) 408 H 141 H 311 H (70-110) mg/dL 06/25/24 Range/Units 06:12 POC Glucose (mg/dL) 119 H (70-110) mg/dL Microbiology - Last 24 Hours (Table) 06/22/24 16:35 Gram Stain - Preliminary Leg - Left Wound Culture - Preliminary Klebsiella pneum subsp pneum Enterococcus faecalis Presumptive MRSA 06/22/24 00:10 Gram Stain - Final Leg - Left Wound Culture - Final Methicillin resist S. aureus Klebsiella Pneum subsp ozaenae Assessment and Plan (1) Leg wound, left Current Visit: Yes Status: Acute Code(s): S81.802A - UNSPECIFIED OPEN WOUND, LEFT LOWER LEG, INITIAL ENCOUNTER SNOMED Code(s): 85918633386692583 (2) Leukocytosis Current Visit: No Status: Acute Code(s): D72.829 - ELEVATED WHITE BLOOD CELL COUNT, UNSPECIFIED SNOMED Code(s): 584489050 (3) Venous stasis Current Visit: No Status: Acute Code(s): I87.8 - OTHER SPECIFIED DISORDERS OF VEINS SNOMED Code(s): 48188081 Plan: 1patient with chronic swelling to bilateral lower extremity did have a history of right leg infected hematoma that wound is healing without evidence of any cellulitis. 2patient with developing swelling and bleeding from the left upper leg concerning for possible hematoma at the question of possible infected hematoma with antibiotics for it. 3elevated white count possible related to the left leg hematoma/infected hematoma. 4patient is status post vascular surgery evaluation drainage of the hematoma and culture which are now growing Klebsiella and MRSA 5patient currently being treated with daptomycin and cefepime on the basis of the culture, will benefit from a week course of IV daptomycin and Rocephin however the patient currently refusing to go to Psychiatric if that is the case we will consider a 7-day course of oral Augmentin and Bactrim DS on discharge Dictation was produced using [employer] dictation software. please excuse any grammatical, word or spelling errors. Time with Patient: Less than 30
[2024-06-25 16:48] LABS: Glucose,Whole Blood 314 mg/dL (70-110)
[2024-06-25 20:33] LABS: Glucose,Whole Blood 220 mg/dL (70-110)
[2024-06-26 06:33] LABS: Glucose,Whole Blood 158 mg/dL (70-110)
--- NOTE | 2024-06-26 10:21 | P.PN ---
Subjective 59-year-old male, history of hypertension, hyperlipidemia, atrial fibrillation, asthma/COPD, sleep apnea, who comes from the detention because he was more lethargic and his pulse ox was low at the detention. Patient normally is on 2 L of oxygen at home. Patient himself wakes up and has no complaints however he is quick to go back to sleep. Patient has had no history of fever or chills patient denied any chest pain or palpitation. Patient has any abdominal pain patient has nausea vomiting diarrhea Blood work reveals WBC of 5.3, hemoglobin of 13.6 and platelet count of 144, sodium 138, potassium 4.6, BUNs/creatinine of 55/1.8 and blood glucose of 155, magnesium elevated at 2.5, lactic acid level of 1.5, troponin 0.023, ABG reveals pH of 7.24, pCO2 of 84, pO2 of 63; patient is admitted for further treatment for pulmonary edema hypercapnia Chest x-ray completed in ED reveals pulmonary edema 24-hour interval change 06/07/2024, -Patient is seen and evaluated in room at bedside; patient is doing well today, less shortness of breath less cough, no wheezing, no chest pain, no fever, no chills, no hemoptysis --presently on 3 L nasal cannula, and his O2 saturation is 100% hemodynamically stable blood pressure is 116/73. Review shows WBC count is 7.5 hemoglobin is 15.2 basic metabolic profile is normal bicarb is 36 BUN 50 creatinine 1.55, steadily improving compared to creatinine of 1.81 on admission Continue bronchodilators and methylprednisolone 40 mg IV every 8 hours Continue diuretics, Lasix 40 mg IV push every 8 hours, continue Diamox to 50 mg p.o. twice daily Continue amiodarone and Eliquis 06/08 Patient is awake alert, sitting at the bedside, looks tired. Patient has been using BiPAP machine all night but he could not sleep well because of frequent epistaxis happened last night. Currently epistaxis is stopp ed. No other bleeding from anywhere else. No headache dizziness or new weakness numbness. No chest pain. He still complaining from dyspnea but improving, leg swelling is better. No other GI/ symptom He is currently on 4 L oxygen via nasal cannula, at home he was using 2 L. I discussed the risk and benefits of anticoagulation including Eliquis and he agrees. Eliquis was resumed and we will going to monitor for bleeding. He is currently on Protonix 40 mg p.o. daily 06/09 Patient still with breathing difficulty. He is not in respiratory distress while at rest but he has still has limited air entry in both sides. He is using BiPAP overnight IV Lasix lowered to twice daily. Creatinine was 1.9. Check creatinine tomorrow Metoprolol dose increased 150 twice daily and to 200 mg in the morning and 200 mg in the evening Patient also remains on IV Solu-Medrol 40 mg Echocardiogram done yesterday showing ejection fraction of 60 to 65%, it was suboptimal study 06/10 Patient overall doing okay His breathing is quiet but looks at baseline. He is currently on 3 L of oxygen which is same home dose of 2-3. Patient confirms to me he has a concentrator and machine at home for his oxygen. Also he confirms to me he has Eliquis at home. Patient adamant not to go to subacute rehab, he says he had bad experience last time. Patient thus will be discharged home with home care. However multiple home agency rejected the patient. We will discussed with the patient and still recommend to go to subacute rehab if he agrees He has superficial wound on the tip of his right second toe. Wound consult is requested Overall doing well. Pulmonary team cleared him for discharge. Hide Shaker jericho mendoza recommend to monitor him 1 more day. After his IV Lasix switched to oral dose. Will monitor creatinine tomorrow Possible discharge in 24 to 48 hours 06/11 Patient was quite agitated overnight, he was hypoxic. He was transferred to the ICU after given some sedatives and placed back on BiPAP. Currently tolerating diet well and his oxygenation is improved Metoprolol dose was increased to 200 mg daily. Repeat chest x-ray showed cardiomegaly with pulm pulmonary vascular congestion, mild He remains on IV Solu-Medrol 60 mg. Normal Saline 75 mL started 06/12 Patient is still in the ICU, on BiPAP with a setting of 16/6 and FiO2 of 30% He is calm not agitated. Patient did not need extra doses of Haldol or Ativan He denies chest pain or any other new complaint He still adamant not to go To subacute rehab upon discharge despite the risk of noncompliance with BiPAP and other medical management 06/22 resuming the care of the patient today Patient currently in room 385, looks much better than last time I saw him, mentation at baseline, energetic, sitting at the bedside. States he used the BiPAP machine Currently he was started on cefazolin recently status post I&D today for his lower extremity by vascular surgery team for his hematoma and sample sent for culture and sensitivity 06/23 Patient feels fine, fully awake and oriented, sitting and his bed side/age eating his popsicle Denies chest pain or dyspnea Since morning he told the staff he wants to go home today. Staff and I explained for him were still waiting for the wound culture and he remains on IV cefazolin so far he verbalized understanding but he is going to discussed with ID team Patient is also considering leaving AMA, I have lengthy discussion with the patient about the risks benefits and alternatives including but not limited to the risk of worsening infection, sepsis and/or , cardiac or heart disease worsening or organ dysfunction he verbalized understanding. Not sure if his going to leave AMA. However explained for the patient to follow-up with his PCP and As soon as possible or come to emergency room 1 if he changes his mind or develop any symptoms again he verbalized understanding Based upon my evaluation patient has capacity make medical decision I told the patient if he decides to leave AMA he should have someone to pick him up and he agrees Currently patient clinically remains stable pending wound culture while he is on IV cefazolin Continued on oral Lasix and oral prednisone Discussed with staff and RN and eladio case technician 06/24 Patient feels fine Mentation at baseline No chest pain or respiratory symptoms Patient still eager to go home Pending wound culture from his left leg while kept on IV antibiotic 06/25 Patient with no new symptoms He uses CPAP machine this morning. No chest pain or dyspnea He is on cefepime and daptomycin Wound culture not finalized yet but showing Klebsiella, Enterococcus and presumptive MRSA 06/26 Patient wound culture is growing multiple bacteria including Klebsiella, Enteroc occus faecalis and MRSA. Patient currently kept on cefepime and IV daptomycin. Patient might benefit from PICC line but patient told the staff he does not want IV antibiotic he prefer oral antibiotic. However creatinine is also elevated 1.2-1.3 which limits the use of antibiotics. Patient also is fixated about going into [facility] only because that is where his brother is at and he refused to go to another rehab. [facility] does not take his insurance, as it is Medicaid. I discussed plan with the patient and he is agreeable for now Continue with cefepime and IV daptomycin Repeat labs Patient can be downgraded to general medical floor, no need for telemetry Objective - Vital Signs Vital signs: Vital Signs Temp 97.5 F L 06/26/24 09:40 Pulse 94 06/26/24 09:40 Resp 18 06/26/24 09:40 BP 121/82 06/26/24 09:40 Pulse Ox 97 06/26/24 09:40 FiO2 30 06/26/24 00:25 Intake & Output 06/25/24 06/26/24 06/26/24 18:59 06:59 18:59 Intake Total 1200 Balance 1200 Weight 162 kg Intake: Oral 1200 Other: Voiding Method Toilet Toilet Toilet Urinal Urinal Urinal # Voids 1 - Exam -GENERAL: The patient is alert and oriented x3, not in any acute distress. Well developed, well nourished. Obese. Looks tired HEENT: Pupils are round and equally reacting to light. EOMI. No scleral icterus. No conjunctival pallor. Normocephalic, atraumatic. No pharyngeal erythema. No thyromegaly. CARDIOVASCULAR: S1 and S2 present. No murmurs, rubs, or gallops. -PULMONARY: Chest is clear to auscultation, no wheezing , no crackles. Decreased air entry on both sides ABDOMEN: Soft, nontender, nondistended, normoactive bowel sounds. No palpable organomegaly. MUSCULOSKELETAL: No joint swelling or deformity. EXTREMITIES: No cyanosis, clubbing, or pedal edema. NEUROLOGICAL: Gross neurological examination did not reveal any focal deficits. SKIN: No rashes. no petechiae. - Labs CBC & Chem 7: 06/24/24 06:26 06/24/24 06:26 Labs: Abnormal Lab Results - Last 24 Hours (Table) 06/25/24 06/25/24 06/25/24 Range/Units 11:52 16:46 20:31 POC Glucose (mg/dL) 143 H 314 H 220 H (70-110) mg/dL 06/26/24 Range/Units 06:31 POC Glucose (mg/dL) 158 H (70-110) mg/dL Microbiology - Last 24 Hours (Table) 06/22/24 16:35 Gram Stain - Final Leg - Left Wound Culture - Final Klebsiella pneum subsp pneum Enterococcus faecalis Methicillin resist S. aureus Assessment and Plan Assessment: 1. Pulmonary edema, secondary to acute diastolic CHF with preserved ejection fraction, improved 2. Hypercapnia; patient has history of COPD/asthma; mild exacerbation, improved 3. Atrial fibrillation; controlled ventricular response, stable 4. Hyperglycemia; uncontrolled diabetes mellitus with long-term insulin use -- Lantus 15 units SQ twice daily; NovoLog 5 units SQ AC -Will monitor Accu-Cheks before every meal and at bedtime with insulin sliding scale 5. Hypertension; metoprolol 150 mg daily 6. Hyperlipidemia; 7. BPH 8. Noncompliance 9. Left lower extremity cellulitis s/p I&D for small hematoma pending culture and sensitivity. Patient continued on cefazolin Plan: Patient out of the ICU on select unit, currently he is on select unit Continue with BiPAP At night Continue with oral Lasix, lowered to twice per day. Amiodarone was discontinued by lean facilitator Currently on cefazolin status post I&D of his left lower extremity pending wound culture Continue with insulin Per mold maintenance technician Monitor creatinine continue with prednisone Wound consult Resumed Eliquis with risk and benefits explained for him and he is agreeable. Patient still at risk of bleeding and will be monitored closely Cardiology and pulmonary consult Labs and medication were reviewed.. Continue same treatment. Continue with symptomatic treatment. Resume home medication. Monitor labs and vitals. DVT and GI prophylaxis. Further recommendations as per clinical course of the patient DVT prophylaxis: Eliquis GI Prophylaxis: Protonix PT/OT: Pending Prognosis is guarded
[2024-06-26 10:40] LABS: Anisocytosis Slight; Basophils # (A) 0.1 k/uL (0-0.2); Basophils % (A) 1 %; Eosinophils # (A) 0.1 k/uL (0-0.7); Eosinophils % (A) 1 %; HCT 41.6 % (39.0-53.0); HGB 12.8 gm/dL (13.0-17.5); Hypochromasia Marked; Lymphocytes % (A) 8 %; MCH 28.6 pg (25.0-35.0); MCHC 30.9 g/dL (31.0-37.0); MCV 92.6 fL (80.0-100.0); Mean Platelet Volume 8.6; Monocytes # (A) 0.5 k/uL (0-1.0); Monocytes % (A) 4 %; Neutrophils # (A) 10.4 k/uL (1.3-7.7); Neutrophils % (A) 86 %; Platelet Count 117 k/uL (150-450); RDW 17.4 % (11.5-15.5); WBC 12.2 k/uL (3.8-10.6)
[2024-06-26 11:14] LABS: African American GFR (CKD) 63 (>60 ml/min/1.73 sqM); Anion Gap 0 mmol/L; Blood Urea Nitrogen 49 mg/dL (9-20); Calcium 8.5 mg/dL (8.4-10.2); Carbon Dioxide 37 mmol/L (22-30); Chloride 99 mmol/L (98-107); Glucose 108 mg/dL (74-99); Non-African American GFR(CKD) 55 (>60 ml/min/1.73 sqM); Potassium 3.9 mmol/L (3.5-5.1); Sodium 136 mmol/L (137-145)
[2024-06-26 11:43] LABS: Glucose,Whole Blood 122 mg/dL (70-110)
--- NOTE | 2024-06-26 11:49 | P.PN ---
Subjective Progress Note Date: 06/26/24 The patient is seen today June 22, 2024 in follow-up on the selective care unit. He is currently sitting up at the bedside. Awake and alert and no acute distress. He denies any worsening shortness of breath, cough or congestion. He is maintaining good O2 saturations in the 90s on 3 L/min per nasal cannula. He continues with Gonzalez wraps to the bilateral lower extremities. They remain quite edematous and with open wounds. He remains on cefazolin. He is continued on Lasix and Aldactone. Remains on Diamox. Continued on DuoNeb inhalations, Pulmicort and Perforomist inhalations, prednisone taper. Anticoagulated with Eliquis. White count 18.3. Hemoglobin 13.4. Platelets 141. Sodium 137. Potassium 4.2. Bicarb 39. BUN 48. Creatinine 1.31. Glucose 120. The patient is seen today June 23, 2024 in follow-up on the selective care unit. He is currently resting in bed. Awake and alert in no acute distress. He denies any worsening shortness of breath, cough or congestion. He did undergo debridement of the left lower extremity wound. He remains on cefazolin. He is continued on DuoNeb inhalations, Pulmicort and Perforomist inhalations, prednisone taper. Remains on oral diuretics. Anticoagulated with Eliquis. Glucose 96. The patient is seen today June 24, 2024 in follow-up on the selective care unit. He is currently sitting up at the bedside. Awake and alert in no acute distress. He denies any worsening shortness of breath, cough or congestion. He is maintaining good O2 saturations in the 90s on 3 L/min per nasal cannula. White count 18.8. Hemoglobin 13.7. Platelets 125. Sodium 136. Potassium 4.2. Bicarb 32. BUN 46. Creatinine 1.29. Glucose 131. Left leg wound culture positive for Klebsiella and Enterococcus faecalis. Final sensitivities are still pending. He is currently on cefepime and daptomycin. Remains on DuoNeb inhalations, Pulmicort and Perforomist inhalations, prednisone taper. Remains on oral diuretics. Anticoagulated with Eliquis. The patient is seen today June 25, 2024 in follow-up on the selective care unit. He is awake and alert in no acute distress. Sitting up at the bedside. Denies any worsening shortness of breath, cough or congestion. Maintaining good O2 saturations in the upper 90s on 3 L/min per nasal cannula. He is afebrile. Hemodynamically stable. Left leg wound cultures were positive for Klebsiella pneumoniae, Enterococcus faecalis and MRSA. Glucose 119. He remains on DuoNeb and elations, Pulmicort and performance inhalations, prednisone taper. Remains on oral diuretics. Anticoagulated with Eliquis. He remains on cefepime and daptomycin per ID service. The patient is seen today June 26, 2024 in follow-up on the selective care unit. He is currently sitting up at the bedside. Awake and alert in no acute distress. Maintaining good O2 saturations in the high 90s on 3 L/min per nasal cannula. He has been afebrile. Hemodynamically stable. Left leg wound cultures were positive for Klebsiella pneumoniae, Enterococcus faecalis and MRSA. White count 12.2. Hemoglobin 12.8. Platelets 117. Sodium 136. Potassium 3.9. Bicarb 37. BUN 49. Creatinine 1.39. Glucose 108. He is continued on DuoNeb inhalations, Pulmicort and Perforomist inhalations, prednisone. He remains on oral diuretics. He is continued on Eliquis for anticoagulation. Remains on daptomycin and cefepime. Objective - Vital Signs Vital signs: Vital Signs Temp 97.5 F L 06/26/24 09:40 Pulse 94 06/26/24 09:40 Resp 18 06/26/24 09:40 BP 121/82 06/26/24 09:40 Pulse Ox 97 06/26/24 09:40 FiO2 30 06/26/24 00:25 Intake & Output 06/25/24 06/26/24 06/26/24 18:59 06:59 18:59 Intake Total 1200 Balance 1200 Weight 162 kg Intake: Oral 1200 Other: Voiding Method Toilet Toilet Toilet Urinal Urinal Urinal # Voids 1 - Exam GENERAL EXAM: Alert, obese, 59-year-old male, on 3 L nasal cannula, in no apparent distress. HEAD: Normocephalic. EYES: Normal reaction of pupils, equal size. NOSE: Clear with pink turbinates. THROAT: No erythema or exudates. NECK: No masses, no JVD. CHEST: No chest wall deformity. LUNGS: Equal air entry with faint end expiratory wheeze, diminished. CVS: S1 and S2 normal with no audible murmur, irregular rhythm. ABDOMEN: No hepatosplenomegaly, normal bowel sounds, no guarding or rigidity. SPINE: No scoliosis or deformity SKIN: No rashes CENTRAL NERVOUS SYSTEM: No focal deficits, tone is normal in all 4 extremities. EXTREMITIES: Lower extremity edema and ulcerations, Gonazlez wraps in place, chronic venous stasis changes. Peripheral pulses are intact. - Labs CBC & Chem 7: 06/26/24 10:24 06/26/24 10:24 Labs: Abnormal Lab Results - Last 24 Hours (Table) 06/25/24 06/25/24 06/25/24 Range/Units 11:52 16:46 20:31 WBC (3.8-10.6) k/uL Hgb (13.0-17.5) gm/dL MCHC (31.0-37.0) g/dL RDW (11.5-15.5) % Plt Count (150-450) k/uL Neutrophils # (1.3-7.7) k/uL Sodium (137-145) mmol/L Carbon Dioxide (22-30) mmol/L BUN (9-20) mg/dL Creatinine (0.66-1.25) mg/dL Glucose (74-99) mg/dL POC Glucose (mg/dL) 143 H 314 H 220 H (70-110) mg/dL 06/26/24 06/26/24 06/26/24 Range/Units 06:31 10:24 10:24 WBC 12.2 H (3.8-10.6) k/uL Hgb 12.8 L (13.0-17.5) gm/dL MCHC 30.9 L (31.0-37.0) g/dL RDW 17.4 H (11.5-15.5) % Plt Count 117 L (150-450) k/uL Neutrophils # 10.4 H (1.3-7.7) k/uL Sodium 136 L (137-145) mmol/L Carbon Dioxide 37 H (22-30) mmol/L BUN 49 H (9-20) mg/dL Creatinine 1.39 H (0.66-1.25) mg/dL Glucose 108 H (74-99) mg/dL POC Glucose (mg/dL) 158 H (70-110) mg/dL Microbiology - Last 24 Hours (Table) 06/22/24 16:35 Gram Stain - Final Leg - Left Wound Culture - Final Klebsiella pneum subsp pneum Enterococcus faecalis Methicillin resist S. aureus Assessment and Plan Assessment: Acute on chronic hypoxemic and hypercapnic respiratory failure, secondary to chronic diastolic CHF exacerbation, as well as COPD exacerbation. Patient is currently on 3 L of oxygen by nasal cannula Small bilateral pleural effusions/atelectasis Severe cellulitis of the bilateral lower extremities, wound cultures positive for Klebsiella, Enterococcus and MRSA. Currently on cefepime and daptomycin. He did undergo debridement 04/22/2024 Severe COPD, stage IV, with an FEV1 that is 22% of predicted Obstructive sleep apnea syndrome, noncompliant with noninvasive positive pressure ventilation Morbid obesity Stage IIIa chronic kidney disease Atrial fibrillation, anticoagulated with Eliquis Chronic lower extremity edema History of hypertension History of hyperlipidemia Former tobacco dependence Plan: The patient was seen and evaluated Medications and labs reviewed Currently on cefepime and daptomycin The patient still refusing IV antibiotics in the outpatient setting Case management working on [place] [facility] [place] was seen independently by the pulmonary nurse practitioner addressing pulmonary issues I have personally seen and examined the patient, performed the documentation and the assessment and plan as written. Number of minutes spent on the visit: 24 Dictation was produced using [employer] dictation software. Please excuse any grammatical, word or spelling errors.
--- NOTE | 2024-06-26 15:25 | P.PN ---
Subjective Progress Note Date: 06/26/24 Principal diagnosis: Reason for follow-up is left leg infected hematoma Patient is a 59-year-old male with a past medical history significant for hypertension hyperlipidemia COPD heart failure atrial fibrillation and a previous right lower extremity infected hematoma now with development of a hematoma to the left leg that has been drained by vascular surgery. On today's evaluation that is 06/26/2024, the patient continues to be afebrile, the patient is on 3 L current oxygen breathing comfortably, the Pt denies having any chest pain or worsening cough, the patient denies having any abdominal pain no vomiting or any diarrhea, nursing staff change the dressing mention overall improvement and no redness or purulent drainage. Patient white count is down to 12.2, creatinine is 1.39 Objective - Vital Signs Vital signs: Vital Signs Temp 97.9 F 06/26/24 11:55 Pulse 88 06/26/24 11:55 Resp 16 06/26/24 11:55 BP 107/53 06/26/24 11:55 Pulse Ox 97 06/26/24 11:55 FiO2 30 06/26/24 00:25 Intake & Output 06/25/24 06/26/24 06/26/24 18:59 06:59 18:59 Intake Total 1200 Balance 1200 Weight 162 kg Intake: Oral 1200 Other: Voiding Method Toilet Toilet Toilet Urinal Urinal Urinal # Voids 1 2 - Exam GENERAL DESCRIPTION: Middle-age male up in bed in no distress RESPIRATORY SYSTEM: Unlabored breathing , decreased breath sounds at bases HEART: S1 S2 regular rate and rhythm , ABDOMEN: Soft , no tenderness EXTREMITIES: Left lower extremity is currently dressed minimal drainage on the dressing - Labs CBC & Chem 7: 06/26/24 10:24 06/26/24 10:24 Labs: Abnormal Lab Results - Last 24 Hours (Table) 06/25/24 06/25/24 06/26/24 Range/Units 16:46 20:31 06:31 WBC (3.8-10.6) k/uL Hgb (13.0-17.5) gm/dL MCHC (31.0-37.0) g/dL RDW (11.5-15.5) % Plt Count (150-450) k/uL Neutrophils # (1.3-7.7) k/uL Sodium (137-145) mmol/L Carbon Dioxide (22-30) mmol/L BUN (9-20) mg/dL Creatinine (0.66-1.25) mg/dL Glucose (74-99) mg/dL POC Glucose (mg/dL) 314 H 220 H 158 H (70-110) mg/dL 06/26/24 06/26/24 06/26/24 Range/Units 10:24 10:24 11:40 WBC 12.2 H (3.8-10.6) k/uL Hgb 12.8 L (13.0-17.5) gm/dL MCHC 30.9 L (31.0-37.0) g/dL RDW 17.4 H (11.5-15.5) % Plt Count 117 L (150-450) k/uL Neutrophils # 10.4 H (1.3-7.7) k/uL Sodium 136 L (137-145) mmol/L Carbon Dioxide 37 H (22-30) mmol/L BUN 49 H (9-20) mg/dL Creatinine 1.39 H (0.66-1.25) mg/dL Glucose 108 H (74-99) mg/dL POC Glucose (mg/dL) 122 H (70-110) mg/dL Microbiology - Last 24 Hours (Table) 06/22/24 16:35 Gram Stain - Final Leg - Left Wound Culture - Final Klebsiella pneum subsp pneum Enterococcus faecalis Methicillin resist S. aureus Assessment and Plan (1) Leg wound, left Current Visit: Yes Status: Acute Code(s): S81.802A - UNSPECIFIED OPEN WOUND, LEFT LOWER LEG, INITIAL ENCOUNTER SNOMED Code(s): 87815008952922853 (2) Leukocytosis Current Visit: No Status: Acute Code(s): D72.829 - ELEVATED WHITE BLOOD CELL COUNT, UNSPECIFIED SNOMED Code(s): 171989547 (3) Venous stasis Current Visit: No Status: Acute Code(s): I87.8 - OTHER SPECIFIED DISORDERS OF VEINS SNOMED Code(s): 16022339 Plan: 1patient with chronic swelling to bilateral lower extremity did have a history of right leg infected hematoma that wound is healing without evidence of any cellulitis. 2patient with developing swelling and bleeding from the left upper leg c oncerning for possible hematoma at the question of possible infected hematoma with antibiotics for it. 3elevated white count possible related to the left leg hematoma/infected hematoma. 4patient is status post vascular surgery evaluation drainage of the hematoma and culture which are now growing Klebsiella and MRSA 5patient currently being treated with daptomycin and cefepime on the basis of the culture, patient unable to go to care home his choice and wants to go home we will consider a 7-day course of oral Augmentin and Bactrim DS on discharge Dictation was produced using [employer] dictation software. please excuse any grammatical, word or spelling errors. Time with Patient: Less than 30
[2024-06-26 17:04] LABS: Glucose,Whole Blood 237 mg/dL (70-110)
[2024-06-26 20:35] LABS: Glucose,Whole Blood 328 mg/dL (70-110)
[2024-06-27 07:06] LABS: Glucose,Whole Blood 138 mg/dL (70-110)
[2024-06-27] MEDS: predniSONE 20 MG TAB PO SCH (08:31)
[2024-06-27 12:07] LABS: Glucose,Whole Blood 256 mg/dL (70-110)
--- NOTE | 2024-06-27 13:26 | P.PN ---
Subjective Progress Note Date: 06/27/24 The patient is seen today June 22, 2024 in follow-up on the selective care unit. He is currently sitting up at the bedside. Awake and alert and no acute distress. He denies any worsening shortness of breath, cough or congestion. He is maintaining good O2 saturations in the 90s on 3 L/min per nasal cannula. He continues with Gonzalez wraps to the bilateral lower extremities. They remain quite edematous and with open wounds. He remains on cefazolin. He is continued on Lasix and Aldactone. Remains on Diamox. Continued on DuoNeb inhalations, Pulmicort and Perforomist inhalations, prednisone taper. Anticoagulated with Eliquis. White count 18.3. Hemoglobin 13.4. Platelets 141. Sodium 137. Potassium 4.2. Bicarb 39. BUN 48. Creatinine 1.31. Glucose 120. The patient is seen today June 23, 2024 in follow-up on the selective care unit. He is currently resting in bed. Awake and alert in no acute distress. He denies any worsening shortness of breath, cough or congestion. He did undergo debridement of the left lower extremity wound. He remains on cefazolin. He is continued on DuoNeb inhalations, Pulmicort and Perforomist inhalations, prednisone taper. Remains on oral diuretics. Anticoagulated with Eliquis. Glucose 96. The patient is seen today June 24, 2024 in follow-up on the selective care unit. He is currently sitting up at the bedside. Awake and alert in no acute distress. He denies any worsening shortness of breath, cough or congestion. He is maintaining good O2 saturations in the 90s on 3 L/min per nasal cannula. White count 18.8. Hemoglobin 13.7. Platelets 125. Sodium 136. Potassium 4.2. Bicarb 32. BUN 46. Creatinine 1.29. Glucose 131. Left leg wound culture positive for Klebsiella and Enterococcus faecalis. Final sensitivities are still pending. He is currently on cefepime and daptomycin. Remains on DuoNeb inhalations, Pulmicort and Perforomist inhalations, prednisone taper. Remains on oral diuretics. Anticoagulated with Eliquis. The patient is seen today June 25, 2024 in follow-up on the selective care unit. He is awake and alert in no acute distress. Sitting up at the bedside. Denies any worsening shortness of breath, cough or congestion. Maintaining good O2 saturations in the upper 90s on 3 L/min per nasal cannula. He is afebrile. Hemodynamically stable. Left leg wound cultures were positive for Klebsiella pneumoniae, Enterococcus faecalis and MRSA. Glucose 119. He remains on DuoNeb and elations, Pulmicort and performance inhalations, prednisone taper. Remains on oral diuretics. Anticoagulated with Eliquis. He remains on cefepime and daptomycin per ID service. The patient is seen today June 26, 2024 in follow-up on the selective care unit. He is currently sitting up at the bedside. Awake and alert in no acute distress. Maintaining good O2 saturations in the high 90s on 3 L/min per nasal cannula. He has been afebrile. Hemodynamically stable. Left leg wound cultures were positive for Klebsiella pneumoniae, Enterococcus faecalis and MRSA. White count 12.2. Hemoglobin 12.8. Platelets 117. Sodium 136. Potassium 3.9. Bicarb 37. BUN 49. Creatinine 1.39. Glucose 108. He is continued on DuoNeb inhalations, Pulmicort and Perforomist inhalations, prednisone. He remains on oral diuretics. He is continued on Eliquis for anticoagulation. Remains on daptomycin and cefepime. The patient is seen today June 27, 2024 in follow-up on the regular medical floor. He was transferred here from the third floor yesterday. He has been stable. No cardiac issues. He is sitting up at the bedside. Awake and alert in no acute distress. He remains on bronchodilators, steroids. Anticoagulated with Eliquis. Continued on daptomycin and cefepime per ID service. Microb iology of the left lower extremity wound infection repeat revealed Klebsiella pneumoniae, Enterococcus faecalis and MRSA. Glucose 256. Objective - Vital Signs Vital signs: Vital Signs Temp 97.9 F 06/27/24 07:03 Pulse 90 06/27/24 07:45 Resp 18 06/27/24 07:03 BP 137/82 06/27/24 07:03 Pulse Ox 99 06/27/24 00:00 FiO2 30 06/27/24 07:37 Intake & Output 06/26/24 06/27/24 06/27/24 18:59 06:59 18:59 Intake Total 480 894 Balance 480 894 Weight 161.3 kg Intake: Intake, IV Titration 200 Amount Cefepime 2 gm In Sodium 200 Chloride 0.9% 100 ml @ 25 mls/hr IVPB Q8HR [facility] Rx# :[id number] Oral 480 694 Other: Voiding Method Toilet Toilet Toilet Urinal Urinal # Voids 2 3 - Exam GENERAL EXAM: Alert, obese, 59-year-old male, sitting up at the bedside, on 3 L nasal cannula, in no apparent distress. HEAD: Normocephalic. EYES: Normal reaction of pupils, equal size. NOSE: Clear with pink turbinates. THROAT: No erythema or exudates. NECK: No masses, no JVD. CHEST: No chest wall deformity. LUNGS: Equal air entry with faint end expiratory wheeze, diminished. CVS: S1 and S2 normal with no audible murmur, irregular rhythm. ABDOMEN: No hepatosplenomegaly, normal bowel sounds, no guarding or rigidity. SPINE: No scoliosis or deformity SKIN: No rashes CENTRAL NERVOUS SYSTEM: No focal deficits, tone is normal in all 4 extremities. EXTREMITIES: Lower extremity edema and ulcerations, chronic venous stasis changes. Gonzalez wraps in place. Peripheral pulses are intact. - Labs CBC & Chem 7: 06/26/24 10:24 06/26/24 10:24 Labs: Abnormal Lab Results - Last 24 Hours (Table) 06/26/24 06/26/24 06/27/24 Range/Units 17:03 20:33 07:05 POC Glucose (mg/dL) 237 H 328 H 138 H (70-110) mg/dL 06/27/24 Range/Units 12:06 POC Glucose (mg/dL) 256 H (70-110) mg/dL Assessment and Plan Assessment: Acute on chronic hypoxemic and hypercapnic respiratory failure, secondary to chronic diastolic CHF exacerbation, as well as COPD exacerbation. Patient is currently on 3 L of oxygen by nasal cannula Small bilateral pleural effusions/atelectasis Severe cellulitis of the bilateral lower extremities, wound cultures positive for Klebsiella, Enterococcus and MRSA. Currently on cefepime and daptomycin. He did undergo debridement 04/22/2024 Severe COPD, stage IV, with an FEV1 that is 22% of predicted Obstructive sleep apnea syndrome, noncompliant with noninvasive positive pressure ventilation Morbid obesity Stage IIIa chronic kidney disease Atrial fibrillation, anticoagulated with Eliquis Chronic lower extremity edema History of hypertension History of hyperlipidemia Former tobacco dependence Plan: The patient was seen and evaluated Medications and labs reviewed Remains stable and on 3 L nasal cannula No pulmonary complaints today Case management working on discharge Attempting to get him to [facility] This patient was seen independently by the pulmonary nurse practitioner addressing pulmonary issues I have personally seen and examined the patient, performed the documentation and the assessment and plan as written. Number of minutes spent on the visit: 23 Dictation was produced using [employer] dictation software. Please excuse any g rammatical, word or spelling errors.
--- NOTE | 2024-06-27 15:52 | P.PN ---
Subjective Progress Note Date: 06/27/24 Principal diagnosis: Reason for follow-up is left leg infected hematoma Patient is a 59-year-old male with a past medical history significant for hypertension hyperlipidemia COPD heart failure atrial fibrillation and a previous right lower extremity infected hematoma now with development of a hematoma to the left leg that has been drained by vascular surgery. On today's evaluation that is 06/27/2024, patient did not have any fever and denies any chills, patient is breathing comfortably on 3 L current oxygen, patient with no chest pain or cough patient did not have any abdominal pain nausea vomiting or any loose stools or any worsening pain to the lower extremit y. No new lab has been obtained today Objective - Vital Signs Vital signs: Vital Signs Temp 98.3 F 06/27/24 13:13 Pulse 86 06/27/24 14:33 Resp 20 06/27/24 13:13 BP 112/66 06/27/24 13:13 Pulse Ox 91 L 06/27/24 13:13 FiO2 30 06/27/24 14:29 Intake & Output 06/26/24 06/27/24 06/27/24 18:59 06:59 18:59 Intake Total 480 894 Balance 480 894 Weight 161.3 kg Intake: Intake, IV Titration 200 Amount Cefepime 2 gm In Sodium 200 Chloride 0.9% 100 ml @ 25 mls/hr IVPB Q8HR [facility] Rx# :[id number] Oral 480 596 Other: Voiding Method Toilet Toilet Toilet Urinal Urinal # Voids 2 3 - Exam GENERAL DESCRIPTION: Middle-age male up in bed in no distress RESPIRATORY SYSTEM: Unlabored breathing , decreased breath sounds at bases HEART: S1 S2 regular rate and rhythm , ABDOMEN: Soft , no tenderness EXTREMITIES: Left lower extremity is currently dressed minimal drainage on the dressing - Labs CBC & Chem 7: 06/26/24 10:24 06/26/24 10:24 Labs: Abnormal Lab Results - Last 24 Hours (Table) 06/26/24 06/26/24 06/27/24 Range/Units 17:03 20:33 07:05 POC Glucose (mg/dL) 237 H 328 H 138 H (70-110) mg/dL 06/27/24 Range/Units 12:06 POC Glucose (mg/dL) 256 H (70-110) mg/dL Assessment and Plan (1) Leg wound, left Current Visit: Yes Status: Acute Code(s): S81.802A - UNSPECIFIED OPEN WOUND, LEFT LOWER LEG, INITIAL ENCOUNTER SNOMED Code(s): 74312909902716649 (2) Leukocytosis Current Visit: No Status: Acute Code(s): D72.829 - ELEVATED WHITE BLOOD CELL COUNT, UNSPECIFIED SNOMED Code(s): 326309741 (3) Venous stasis Current Visit: No Status: Acute Code(s): I87.8 - OTHER SPECIFIED DISORDERS OF VEINS SNOMED Code(s): 83739784 Plan: 1patient with chronic swelling to bilateral lower extremity did have a history of right leg infected hematoma that wound is healing without evidence of any ce llulitis. 2patient with developing swelling and bleeding from the left upper leg concerning for possible hematoma at the question of possible infected hematoma with antibiotics for it. 3elevated white count possible related to the left leg hematoma/infected hematoma. 4patient is status post vascular surgery evaluation drainage of the hematoma and culture which are now growing Klebsiella and MRSA 5patient will continue with daptomycin and cefepime on the basis of the culture, waiting for fdc placement May continue with IV antibiotics if the patient goes to fdc otherwise consider a 7-day course of oral Augmentin and Bactrim DS on discharge Dictation was produced using [employer] dictation software. please excuse any grammatical, word or spelling errors. Time with Patient: Less than 30
[2024-06-27 17:18] LABS: Glucose,Whole Blood 136 mg/dL (70-110)
--- NOTE | 2024-06-27 17:46 | P.PN ---
Subjective Progress Note Date: 06/27/24 Interval History: 59-year-old male, history of hypertension, hyperlipidemia, atrial fibrillation, asthma/COPD, sleep apnea, who comes [facility] the [facility] because he was more lethargic and his pulse ox was low at the [facility]. Patient normally is on 2 L of oxygen at home. Patient himself wakes up and has no complaints however he is quick to go back to sleep. Patient has had no history of fever or chills patient denied any chest pain or palpitation. Patient has any abdominal pain patient has nausea vomiting diarrhea Blood work reveals WBC of 5.3, hemoglobin of 13.6 and platelet count of 144, sodium 138, potassium 4.6, BUNs/creatinine of 55/1.8 and blood glucose of 155, magnesium elevated at 2.5, lactic acid level of 1.5, troponin 0.023, ABG reveals pH of 7.24, pCO2 of 84, pO2 of 63; patient is admitted for further treatment for pulmonary edema hypercapnia Chest x-ray completed in ED reveals pulmonary edema 24-hour interval change 06/07/2024, -Patient is seen and evaluated in room at bedside; patient is doing well today, less shortness of breath less cough, no wheezing, no chest pain, no fever, no chills, no hemoptysis --presently on 3 L nasal cannula, and his O2 saturation is 100% hemodynamically stable blood pressure is 116/73. Review shows WBC count is 7.5 hemoglobin is 15.2 basic metabolic profile is normal bicarb is 36 BUN 50 creatinine 1.55, steadily improving compared to creatinine of 1.81 on admission Continue bronchodilators and methylprednisolone 40 mg IV every 8 hours Continue diuretics, Lasix 40 mg IV push every 8 hours, continue Diamox to 50 mg p.o. twice daily Continue amiodarone and Eliquis 06/08 Patient is awake alert, sitting at the bedside, looks tired. Patient has been using BiPAP machine all night but he could not sleep well because of frequent epistaxis happened last night. Currently epistaxis is stopped. No other bleeding from anywhere else. No headache dizziness or new weakness numbness. No chest pain. He still complaining from dyspnea but improving, leg swelling is better. No other GI/ symptom He is currently on 4 L oxygen via nasal cannula, at home he was using 2 L. I discussed the risk and benefits of anticoagulation including Eliquis and he agrees. Eliquis was resumed and we will going to monitor for bleeding. He is currently on Protonix 40 mg p.o. daily 06/09 Patient still with breathing difficulty. He is not in respiratory distress while at rest but he has still has limited air entry in both sides. He is using BiPAP overnight IV Lasix lowered to twice daily. Creatinine was 1.9. Check creatinine tomorrow Metoprolol dose increased 150 twice daily and to 200 mg in the morning and 200 mg in the evening Patient also remains on IV Solu-Medrol 40 mg Echocardiogram done yesterday showing ejection fraction of 60 to 65%, it was suboptimal study 06/10 Patient overall doing okay His breathing is quiet but looks at baseline. He is currently on 3 L of oxygen which is same home dose of 2-3. Patient confirms to me he has a concentrator and machine at home for his oxygen. Also he confirms to me he has Eliquis at home. Patient adamant not to go to subacute rehab, he says he had bad experience last time. Patient thus will be discharged home with home care. However multiple home agency rejected the patient. We will discussed with the patient and still recommend to go to subacute rehab if he agrees He has superficial wound on the tip of his right second toe. Wound consult is requested Overall doing well. Pulmonary team cleared him for discharge. Endoscopy Nurse team recommend to monitor him 1 more day. After his IV Lasix switched to oral dose. Will monitor creatinine tomorrow Possible discharge in 24 to 48 hours 06/11 Patient was quite agitated overnight, he was hypoxic. He was transferred to the ICU after given some sedatives and placed back on BiPAP. Currently tolerating diet well and his oxygenation is improved Metoprolol dose was increased to 200 mg daily. Repeat chest x-ray showed cardiomegaly with pulm pulmonary vascular congestion, mild He remains on IV Solu-Medrol 60 mg. Normal Saline 75 mL started 06/12 Patient is still in the ICU, on BiPAP with a setting of 16/6 and FiO2 of 30% He is calm not agitated. Patient did not need extra doses of Haldol or Ativan He denies chest pain or any other new complaint He still adamant not to go To subacute rehab upon discharge despite the risk of noncompliance with BiPAP and other medical management 06/22 resuming the care of the patient today Patient currently in room 385, looks much better than last time I saw him, mentation at baseline, energetic, sitting at the bedside. States he used the BiPAP machine Currently he was started on cefazolin recently status post I&D today for his lower extremity by vascular surgery team for his hematoma and sample sent for culture and sensitivity 06/23 Patient feels fine, fully awake and oriented, sitting and his bed side/age eating his popsicle Denies chest pain or dyspnea Since morning he told the staff he wants to go home today. Staff and I explained for him were still waiting for the wound culture and he remains on IV cefazolin so far he verbalized understanding but he is going to discussed with ID team Patient is also considering leaving AMA, I have lengthy discussion with the patient about the risks benefits and alternatives including but not limited to the risk of worsening infection, sepsis and/or , cardiac or heart disease worsening or organ dysfunction he verbalized understanding. Not sure if his going to leave AMA. However explained for the patient to follow-up with his PCP and As soon as possible or come to emergency room 1 if he changes his mind or develop any symptoms again he verbalized understanding Based upon my evaluation patient has capacity make medical decision I told the patient if he decides to leave AMA he should have someone to pick him up and he agrees Currently patient clinically remains stable pending wound culture while he is on IV cefazolin Continued on oral Lasix and oral prednisone Discussed with staff and RN and eladio immigration case worker 06/24 Patient feels fine Mentation at baseline No chest pain or respiratory symptoms Patient still eager to go home Pending wound culture from his left leg while kept on IV antibiotic 06/25 Patient with no new symptoms He uses CPAP machine this morning. No chest pain or dyspnea He is on cefepime and daptomycin Wound culture not finalized yet but showing Klebsiella, Enterococcus and presumptive MRSA 06/26 Patient wound culture is growing multiple bacteria including Klebsiella, Enterococcus faecalis and MRSA. Patient currently kept on cefepime and IV daptomycin. Patient might benefit from PICC line but patient told the staff he does not want IV antibiotic he prefer oral antibiotic. However creatinine is also elevated 1.2-1.3 which limits the use of antibiotics. Patient also is fixated about going into [facility] only because that is where his brother is at and he refused to go to another rehab. Seth does not t bishnu his insurance, as it is Medicaid. I discussed plan with the patient and he is agreeable for now Continue with cefepime and IV daptomycin Repeat labs Patient can be downgraded to general medical floor, no need for telemetry 06/27patient was seen and examined today, on 3 L oxygen which patient reported his baseline, required BiPAP overnight. Afebrile, blood pressure stable. No new labs from today, WBCs were trending yesterday down yesterday. Creatinine was 1.39 yesterday. Infectious disease following, currently on daptomycin and cefepime, recommended to switch to Augmentin and Bactrim DS on discharge if going home. Patient agreeable to go to subacute rehab. Assessment and plan: -- Pulmonary edema, secondary to acute diastolic CHF with preserved ejection fraction, improved -- Acute on chronic hypoxic hypercapnic respiratory failure: 3L baseline Acute COPD exacerbation Obstructive sleep apnea Severe COPD with FEV1 22% ---Left lower extremity cellulitis/infected hematomastatus post I&D by vascular surgery, ID following on daptomycin and cefepime -- Atrial fibrillation; controlled ventricular response, stable -- Hyperglycemia; uncontrolled diabetes mellitus with long-term insulin use -- Lantus 15 units SQ twice daily; NovoLog 5 units SQ AC -Will monitor Accu-Cheks before every meal and at bedtime with insulin sliding scale ---. Hypertension; metoprolol 150 mg daily -- Hyperlipidemia; -- BPH -- Noncompliance -- Left lower extremity cellulitis s/p I&D for small hematoma pending culture and sensitivity. Patient continued on cefazolin --- CKD stage III Morbid obesity Plan: Patient out of the ICU on select unit, currently he is on select unit Continue with BiPAP At night Continue with oral Lasix, lowered to twice per day. Amiodarone was discontinued by weight guesser Status post I&D of his left lower extremity hematoma, on daptomycin and cefepime, wound culture growing Klebsiella, Enterococcus and MRSA. Augmentin and Bactrim on discharge if goes home. Continue with insulin Per banner painter Monitor creatinine continue with prednisone Wound consult Resumed Eliquis with risk and benefits explained for him and he is agreeable. Patient still at risk of bleeding and will be monitored closely Cardiology and pulmonary consult DVT prophylaxis: Eliquis GI Prophylaxis: Protonix PT/OT: Pending, patient agreeable to going to subacute rehab, does not want to affect couple of facilities. Prognosis is guarded Monitor vital signs and labs Labs and medication were reviewed. Continue same treatment. Further recommendations as per clinical course of the patient PHYSICAL EXAMINATION: GENERAL: The patient is A&O x3, NAD HEENT: EOMI, Sclerae anicteric, Moist Mucous membranes Neck: Supple, Non tender, No JVD PULMONARY: Equal breath souds B/L, + wheezing, No crackles. CARDIOVASCULAR: S1, S2 present. No murmurs, rubs, or gallops. ABDOMEN: Soft, nontender, nondistended, normoactive bowel sounds. No guarding or rebound tenderness. MUSCULOSKELETAL: ++ edema, No cyanosis. No clubbing. Normal ROM. Intact peripheral pulses. Lower extremitiesdressed NEUROLOGICAL: CN 2-12 grossly intact. No FND Skin: No Rash REVIEW OF SYSTEMS: CONSTITUTIONAL: No fever or chills. CARDIOVASCULAR: No chest pain, palpitations or syncope. PULMONARY: No shortness of breath, no cough, sore throat. GASTROINTESTINAL: No nausea, vomiting, diarrhea, abdominal pain. : No Dysuria, urgency, frequency. Extremities: No edema. NEUROLOGICAL: No headaches, no weakness, or numbness Dictation was produced using [employer] dictation software. please excuse any grammatical, word or spelling errors. Objective - Vital Signs Vital signs: Vital Signs Temp 98.3 F 06/27/24 13:13 Pulse 86 06/27/24 14:33 Resp 20 06/27/24 13:13 BP 112/66 06/27/24 13:13 Pulse Ox 91 L 06/27/24 13:13 FiO2 30 06/27/24 14:29 Intake & Output 06/26/24 06/27/24 06/27/24 18:59 06:59 18:59 Intake Total 480 894 Balance 480 894 Weight 161.3 kg Intake: Intake, IV Titration 200 Amount Cefepime 2 gm In Sodium 200 Chloride 0.9% 100 ml @ 25 mls/hr IVPB Q8HR [facility] Rx# :[id number] Oral 480 794 Other: Voiding Method Toilet Toilet Toilet Urinal Urinal # Voids 2 3 - Labs CBC & Chem 7: 06/26/24 10:24 06/26/24 10:24 Labs: Abnormal Lab Results - Last 24 Hours (Table) 06/26/24 06/27/24 06/27/24 Range/Units 20:33 07:05 12:06 POC Glucose (mg/dL) 328 H 138 H 256 H (70-110) mg/dL 06/27/24 Range/Units 17:16 POC Glucose (mg/dL) 136 H (70-110) mg/dL
[2024-06-27 20:33] LABS: Glucose,Whole Blood 173 mg/dL (70-110)
[2024-06-28 07:35] LABS: Glucose,Whole Blood 141 mg/dL (70-110)
--- NOTE | 2024-06-28 12:11 | P.PN ---
Subjective Progress Note Date: 06/28/24 The patient is seen today June 22, 2024 in follow-up on the selective care unit. He is currently sitting up at the bedside. Awake and alert and no acute distress. He denies any worsening shortness of breath, cough or congestion. He is maintaining good O2 saturations in the 90s on 3 L/min per nasal cannula. He continues with Gonzalez wraps to the bilateral lower extremities. They remain quite edematous and with open wounds. He remains on cefazolin. He is continued on Lasix and Aldactone. Remains on Diamox. Continued on DuoNeb inhalations, Pulmicort and Perforomist inhalations, prednisone taper. Anticoagulated with Eliquis. White count 18.3. Hemoglobin 13.4. Platelets 141. Sodium 137. Potassium 4.2. Bicarb 39. BUN 48. Creatinine 1.31. Glucose 120. The patient is seen today June 23, 2024 in follow-up on the selective care unit. He is currently resting in bed. Awake and alert in no acute distress. He denies any worsening shortness of breath, cough or congestion. He did undergo debridement of the left lower extremity wound. He remains on cefazolin. He is continued on DuoNeb inhalations, Pulmicort and Perforomist inhalations, prednisone taper. Remains on oral diuretics. Anticoagulated with Eliquis. Glucose 96. The patient is seen today June 24, 2024 in follow-up on the selective care unit. He is currently sitting up at the bedside. Awake and alert in no acute distress. He denies any worsening shortness of breath, cough or congestion. He is maintaining good O2 saturations in the 90s on 3 L/min per nasal cannula. White count 18.8. Hemoglobin 13.7. Platelets 125. Sodium 136. Potassium 4.2. Bicarb 32. BUN 46. Creatinine 1.29. Glucose 131. Left leg wound culture positive for Klebsiella and Enterococcus faecalis. Final sensitivities are still pending. He is currently on cefepime and daptomycin. Remains on DuoNeb inhalations, Pulmicort and Perforomist inhalations, prednisone taper. Remains on oral diuretics. Anticoagulated with Eliquis. The patient is seen today June 25, 2024 in follow-up on the selective care unit. He is awake and alert in no acute distress. Sitting up at the bedside. Denies any worsening shortness of breath, cough or congestion. Maintaining good O2 saturations in the upper 90s on 3 L/min per nasal cannula. He is afebrile. Hemodynamically stable. Left leg wound cultures were positive for Klebsiella pneumoniae, Enterococcus faecalis and MRSA. Glucose 119. He remains on DuoNeb and elations, Pulmicort and performance inhalations, prednisone taper. Remains on oral diuretics. Anticoagulated with Eliquis. He remains on cefepime and daptomycin per ID service. The patient is seen today June 26, 2024 in follow-up on the selective care unit. He is currently sitting up at the bedside. Awake and alert in no acute distress. Maintaining good O2 saturations in the high 90s on 3 L/min per nasal cannula. He has been afebrile. Hemodynamically stable. Left leg wound cultures were positive for Klebsiella pneumoniae, Enterococcus faecalis and MRSA. White count 12.2. Hemoglobin 12.8. Platelets 117. Sodium 136. Potassium 3.9. Bicarb 37. BUN 49. Creatinine 1.39. Glucose 108. He is continued on DuoNeb inhalations, Pulmicort and Perforomist inhalations, prednisone. He remains on oral diuretics. He is continued on Eliquis for anticoagulation. Remains on daptomycin and cefepime. The patient is seen today June 27, 2024 in follow-up on the regular medical floor. He was transferred here from the third floor yesterday. He has been stable. No cardiac issues. He is sitting up at the bedside. Awake and alert in no acute distress. He remains on bronchodilators, steroids. Anticoagulated with Eliquis. Continued on daptomycin and cefepime per ID service. Microb iology of the left lower extremity wound infection repeat revealed Klebsiella pneumoniae, Enterococcus faecalis and MRSA. Glucose 256. The patient is seen today June 28, 2024 in follow-up on the regular medical floor. He is currently sitting up at the bedside. Awake and alert in no acute distress. Denies any worsening shortness of breath, cough or congestion. Maintaining good O2 saturations in the mid 90s on 2 L/min per nasal cannula. Glucose 141. Microbiology of the left lower extremity wound infection repeat revealed Klebsiella pneumoniae, Enterococcus faecalis and MRSA. He remains on daptomycin and cefepime. Anticoagulated with Eliquis. Continued on bronchodilators. Continued on oral diuretics. Continued on prednisone taper. Objective - Vital Signs Vital signs: Vital Signs Temp 97.7 F 06/28/24 07:46 Pulse 92 06/28/24 11:49 Resp 19 06/28/24 07:46 BP 143/76 06/28/24 07:46 Pulse Ox 96 06/28/24 07:46 FiO2 30 06/28/24 11:42 Intake & Output 06/27/24 06/28/24 06/28/24 18:59 06:59 18:59 Intake Total 222 Output Total 200 Balance 22 Weight 161.3 kg 160.9 kg Intake: Oral 222 Output: Urine 200 Other: Voiding Method Toilet Toilet Urinal Urinal # Voids 3 - Exam GENERAL EXAM: Alert, obese, 59-year-old male, on 2 L nasal cannula, in no apparent distress. HEAD: Normocephalic. EYES: Normal reaction of pupils, equal size. NOSE: Clear with pink turbinates. THROAT: No erythema or exudates. NECK: No masses, no JVD. CHEST: No chest wall deformity. LUNGS: Equal air entry with faint end expiratory wheeze, diminished. CVS: S1 and S2 normal with no audible murmur, irregular rhythm. ABDOMEN: No hepatosplenomegaly, normal bowel sounds, no guarding or rigidity. SPINE: No scoliosis or deformity SKIN: No rashes CENTRAL NERVOUS SYSTEM: No focal deficits, tone is normal in all 4 extremities. EXTREMITIES: Lower extremity edema and ulcerations, chronic venous stasis changes. Gonzalez wraps in place. Peripheral pulses are intact. - Labs CBC & Chem 7: 06/26/24 10:24 06/26/24 10:24 Labs: Abnormal Lab Results - Last 24 Hours (Table) 06/27/24 06/27/24 06/27/24 Range/Units 12:06 17:16 20:31 POC Glucose (mg/dL) 256 H 136 H 173 H (70-110) mg/dL 06/28/24 Range/Units 07:14 POC Glucose (mg/dL) 141 H (70-110) mg/dL Assessment and Plan Assessment: Acute on chronic hypoxemic and hypercapnic respiratory failure, secondary to chronic diastolic CHF exacerbation, as well as COPD exacerbation. Patient is currently on 2 L of oxygen by nasal cannula Small bilateral pleural effusions/atelectasis Severe cellulitis of the bilateral lower extremities, wound cultures positive for Klebsiella, Enterococcus and MRSA. Currently on cefepime and daptomycin. He did undergo debridement 04/22/2024 Severe COPD, stage IV, with an FEV1 that is 22% of predicted Obstructive sleep apnea syndrome, noncompliant with noninvasive positive pressure ventilation Morbid obesity Stage IIIa chronic kidney disease Atrial fibrillation, anticoagulated with Eliquis Chronic lower extremity edema History of hypertension History of hyperlipidemia Former tobacco dependence Plan: The patient was seen and evaluated Medications and labs reviewed Remains stable and on 2 L nasal cannula ID service will transition him to oral antibiotics Cleared for discharge from the pulmonary standpoint To continue his home oxygen, pulmonary medications This patient was seen independently by the pulmonary nurse practitioner addressing pulmonary issues I have personally seen and examined the patient, performed the documentation and the assessment and plan as written. Number of minutes spent on the visit: 25 Dictation was produced using [employer] dictation software. Please excuse any grammatical, word or spelling errors.
[2024-06-28 12:35] LABS: Glucose,Whole Blood 140 mg/dL (70-110)
--- NOTE | 2024-06-28 15:00 | P.DS ---
Providers Date of admission: 06/04/24 18:48 Expected date of discharge: 06/29/24 Attending physician: Rashaad Peres Consults: 06/04/24 18:48 Consult Physician Routine Consulting Provider: Sita Waterman Consult Reason/Comments: Hypercapnic, acute pulmonary edema Do you want consulting provider notified?: Yes 06/05/24 16:19 Consult Physician Routine Consulting Provider: Paul Preston Consult Reason/Comments: Pulmonary edema Do you want consulting provider notified?: Yes 06/21/24 16:10 Consult Physician Routine Consulting Provider: Ignacio Matta Consult Reason/Comments: left leg abscess, possible incision and drainage needed Do you want consulting provider notified?: Yes 06/21/24 22:42 Consult Physician Routine Consulting Provider: Kamryn Galeana Consult Reason/Comments: LE chronic swelling with abscess Do you want consulting provider notified?: Yes, Notify in am Primary care physician: [facility] Course: Discharge diagnoses: - Pulmonary edema, secondary to acute diastolic CHF with preserved ejection fraction, improved -- Acute on chronic hypoxic hypercapnic respiratory failure: 3L baseline, resolved Acute COPD exacerbation Obstructive sleep apnea Severe COPD with FEV1 22% ---Left lower extremity cellulitis/infected hematomastatus post I&D by vascular surgery, ID following on daptomycin and cefepime, discharged on Augmentin and B actrim for 1 week. -- Atrial fibrillation; controlled ventricular response, stable continue Eliquis. -- Hyperglycemia; uncontrolled diabetes mellitus with long-term insulin use -- Lantus 15 units SQ twice daily; NovoLog 5 units SQ AC -Will monitor Accu-Cheks before every meal and at bedtime with insulin sliding scale ---. Hypertension; metoprolol 150 mg daily -- Hyperlipidemia; -- BPH -- Noncompliance -- Left lower extremity cellulitis s/p I&D for small hematoma pending culture and sensitivity. Patient continued on cefazolin --- CKD stage III Morbid obesity Hospital course: Interval History: 59-year-old male, history of hypertension, hyperlipidemia, atrial fibrillation, asthma/COPD, sleep apnea, [facility] more [facility]argic and his pulse ox was [facility] at the jail. Patient normally is on 2 L of oxygen at home. Patient himself wakes up and has no complaints however he is quick to go back to sleep. Patient has had no history of fever or chills patient denied any chest pain or palpitation. Patient has any abdominal pain patient has nausea vomiting diarrhea Blood work reveals WBC of 5.3, hemoglobin of 13.6 and platelet count of 144, sodium 138, potassium 4.6, BUNs/creatinine of 55/1.8 and blood glucose of 155, magnesium elevated at 2.5, lactic acid level of 1.5, troponin 0.023, ABG reveals pH of 7.24, pCO2 of 84, pO2 of 63; patient is admitted for further treatment for pulmonary edema hypercapnia Chest x-ray completed in ED reveals pulmonary edema 24-hour interval change 06/07/2024, -Patient is seen and evaluated in room at bedside; patient is doing well today, less shortness of breath less cough, no wheezing, no chest pain, no fever, no chills, no hemoptysis --presently on 3 L nasal cannula, and his O2 saturation is 100% hemodynamically stable blood pressure is 116/73. Review shows WBC count is 7.5 hemoglobin is 15.2 basic metabolic profile is normal bicarb is 36 BUN 50 creatinine 1.55, steadily improving compared to creatinine of 1.81 on admission Continue bronchodilators and methylprednisolone 40 mg IV every 8 hours Continue diuretics, Lasix 40 mg IV push every 8 hours, continue Diamox to 50 mg p.o. twice daily Continue amiodarone and Eliquis 06/08 Patient is awake alert, sitting at the bedside, looks tired. Patient has been using BiPAP machine all night but he could not sleep well because of frequent epistaxis happened last night. Currently epistaxis is stopped. No other bleeding from anywhere else. No headache dizziness or new weakness numbness. No chest pain. He still complaining from dyspnea but improving, leg swelling is better. No other GI/ symptom He is currently on 4 L oxygen via nasal cannula, at home he was using 2 L. I discussed the risk and benefits of anticoagulation including Eliquis and he agrees. Eliquis was resumed and we will going to monitor for bleeding. He is currently on Protonix 40 mg p.o. daily 06/09 Patient still with breathing difficulty. He is not in respiratory distress while at rest but he has still has limited air entry in both sides. He is using BiPAP overnight IV Lasix lowered to twice daily. Creatinine was 1.9. Check creatinine tomorrow Metoprolol dose increased 150 twice daily and to 200 mg in the morning and 200 mg in the evening Patient also remains on IV Solu-Medrol 40 mg Echocardiogram done yesterday showing ejection fraction of 60 to 65%, it was suboptimal study 06/10 Patient overall doing okay His breathing is quiet but looks at baseline. He is currently on 3 L of oxygen which is same home dose of 2-3. Patient confirms to me he has a concentrator and machine at home for his oxygen. Also he confirms to me he has Eliquis at home. Patient adamant not to go to subacute rehab, he says he had bad experience last time. Patient thus will be discharged home with home care. However multiple home agency rejected the patient. We will discussed with the patient and still recommend to go to subacute rehab if he agrees He has superficial wound on the tip of his right second toe. Wound consult is requested Overall doing well. Pulmonary team cleared him for discharge. Wealth Management Advisor team recommend to monitor him 1 more day. After his IV Lasix switched to oral dose. Will monitor creatinine tomorrow Possible discharge in 24 to 48 hours 06/11 Patient was quite agitated overnight, he was hypoxic. He was transferred to the ICU after given some sedatives and placed back on BiPAP. Currently tolerating diet well and his oxygenation is improved Metoprolol dose was increased to 200 mg daily. Repeat chest x-ray showed cardiomegaly with pulm pulmonary vascular congestion, mild He remains on IV Solu-Medrol 60 mg. Normal Saline 75 mL started 06/12 Patient is still in the ICU, on BiPAP with a setting of 16/6 and FiO2 of 30% He is calm not agitated. Patient did not need extra doses of Haldol or Ativan He denies chest pain or any other new complaint He still adamant not to go To subacute rehab upon discharge despite the risk of noncompliance with BiPAP and other medical management 06/22 resuming the care of the patient today Patient currently in room 385, looks much better than last time I saw him, mentation at baseline, energetic, sitting at the bedside. States he used the BiPAP machine Currently he was started on cefazolin recently status post I&D today for his lower extremity by vascular surgery team for his hematoma and sample sent for culture and sensitivity 06/23 Patient feels fine, fully awake and oriented, sitting and his bed side/age eating his popsicle Denies chest pain or dyspnea Since morning he told the staff he wants to go home today. Staff and I explained for him were still waiting for the wound culture and he remains on IV cefazolin so far he verbalized understanding but he is going to discussed with ID team Patient is also considering leaving AMA, I have lengthy discussion with the patient about the risks benefits and alternatives including but not limited to the risk of worsening infection, sepsis and/or , cardiac or heart disease worsening or organ dysfunction he verbalized understanding. Not sure if his going to leave AMA. However explained for the patient to follow-up with his PCP and As soon as possible or come to emergency room 1 if he changes his mind or develop any symptoms again he verbalized understanding Based upon my evaluation patient has capacity make medical decision I told the patient if he decides to leave AMA he should have someone to pick him up and he agrees Currently patient clinically remains stable pending wound culture while he is on IV cefazolin Continued on oral Lasix and oral prednisone Discussed with staff and RN and eladio sample case porter 06/24 Patient feels fine Mentation at baseline No chest pain or respiratory symptoms Patient still eager to go home Pending wound culture from his left leg while kept on IV antibiotic 06/25 Patient with no new symptoms He uses CPAP machine this morning. No chest pain or dyspnea He is on cefepime and daptomycin Wound culture not finalized yet but showing Klebsiella, Enterococcus and presumptive MRSA 06/26 Patient wound culture is growing multiple bacteria including Klebsiella, Enterococcus faecalis and MRSA. Patient currently kept on cefepime and IV daptomycin. Patient might benefit from PICC line but patient told the staff he does not want IV antibiotic he prefer oral antibiotic. However creatinine is also elevated 1.2-1.3 which limits the use of antibiotics. Patient also is fixated about going into [facility] only because that is where his brother is at and he refused to go to another rehab. [facility] does not take his insurance, as it is Medicaid. I discussed plan with the patient and he is agreeable for now Continue with cefepime and IV daptomycin Repeat labs Patient can be downgraded to general medical floor, no need for telemetry 06/27patient was seen and examined today, on 3 L oxygen which patient reported his baseline, required BiPAP overnight. Afebrile, blood pressure stable. No new labs from today, WBCs were trending yesterday down yesterday. Creatinine was 1.39 yesterday. Infectious disease following, currently on daptomycin and cefepime, recommended to switch to Augmentin and Bactrim DS on discharge if going home. Patient agreeable to go to subacute rehab. 06/28--06/29 patient was seen and examined today, on 2 to 3 L oxygen. Okay to discharge per pulmonary. Patient vital stable. Creatinine stable. Infectious disease recommended to continue Augmentin and Bactrim for 1 week. Repeat BMP and CBC to be checked by PCP in 1 week. Patient metoprolol tartrate dose increased to 100 mg in the morning, 200 mg in the evening. Aldactone held while on Bactrim due to concern for hyperkalemia. Patient declined going to subacute rehab, discharged home with home health services. Torsemide switched to Lasix. Please refer to medical assessment for further details. Follow-up with PCP in 1 week Follow-up with wound care Follow-up with pulmonary. Follow-up with cardiology. PHYSICAL EXAMINATION: GENERAL: The patient is A&O x3, NAD HEENT: EOMI, Sclerae anicteric, Moist Mucous membranes Neck: Supple, Non tender, No JVD PULMONARY: Equal breath souds B/L, + wheezing, No crackles. CARDIOVASCULAR: S1, S2 present. No murmurs, rubs, or gallops. ABDOMEN: Soft, nontender, nondistended, normoactive bowel sounds. No guarding or rebound tenderness. MUSCULOSKELETAL: + edema, No cyanosis. No clubbing. Normal ROM. Intact peripheral pulses. Lower extremitiesdressed NEUROLOGICAL: CN 2-12 grossly intact. No FND Skin: No Rash Dictation was produced using [employer] dictation software. please excuse any grammatical, word or spelling errors. Patient Condition at Discharge: Stable Plan - Discharge Summary Discharge Rx Participant: Yes New Discharge Prescriptions: New Amoxic-Pot Clav 875-125Mg [Augmentin 875-125] 1 tab PO Q12HR #10 tab Furosemide [Lasix] 40 mg PO BID #60 tablet Metoprolol Tartrate [Lopressor] 100 mg PO DAILY #90 tablet Sulfamethox-Tmp 800-160Mg [Bactrim DS 800-160 mg] 1 tab PO Q12HR #10 tab Continue hydrOXYzine pamoate [Vistaril] 50 mg PO HS PRN PRN Reason: ANXIETY/INSOMNIA Dapagliflozin Propanediol [Farxiga] 10 mg PO DAILY 30 Days #30 tab Prochlorperazine [Compazine] 10 mg PO Q8H PRN PRN Reason: Nausea And Vomiting Naloxone HCl [Narcan] 4 mg NASAL DIRECTED PRN PRN Reason: overdose Tamsulosin [Flomax] 0.4 mg PO HS ALPRAZolam [Xanax] 0.25 mg PO TID #6 tab Terbinafine [LamISIL] 250 mg PO DAILY tab Pantoprazole [Protonix] 40 mg PO DAILY Atorvastatin [Lipitor] 10 mg PO HS busPIRone HCl [Buspar] 5 mg PO TID 30 Days #90 tab Apixaban [Eliquis] 5 mg PO BID Finasteride [Proscar] 5 mg PO DAILY Sertraline [Zoloft] 50 mg PO DAILY diphenhydrAMINE [Benadryl] 25 mg PO BID PRN cap PRN Reason: Itching Ipratropium-Albuterol Nebulize [Duoneb 0.5 mg-3 mg/3 ml Soln] 3 ml INHALATION RT-QID each Ipratropium-Albuterol Nebulize [Duoneb 0.5 mg-3 mg/3 ml Soln] 3 ml INHALATION RT-Q2H PRN each PRN Reason: Shortness Of Breath Or Wheezing Insulin Detemir (Levemir) [Levemir] 15 unit SQ BID@0700,2100 each Calcium Carbonate [Tums] 1,000 mg PO QID PRN tab PRN Reason: Heartburn INSULIN ASPART (NovoLOG) [NovoLOG (formulary)] 5 unit SQ AC-TID each acetaZOLAMIDE [Diamox] 250 mg PO BID tab Budesonide-Formot 160-4.5 Mcg [Symbicort 160-4.5 Mcg Inhaler] 2 puff INHALATION RT-BID each Acetaminophen [Tylenol 8 Hour] 650 mg PO Q6H PRN PRN Reason: Pain oxyCODONE HCL/ACETAMINOPHEN [Percocet 7.5-325 mg] 1 tab PO Q6HR PRN PRN Reason: Pain predniSONE 10 mg PO DAILY Pregabalin [Lyrica] 50 mg PO BID Discontinued Metoprolol Tartrate [Lopressor] 150 mg PO BID tab Torsemide [Demadex] 10 mg PO DAILY Spironolactone [Aldactone] 25 mg PO DAILY Amiodarone [Cordarone] 200 mg PO DAILY Discharge Medication List hydrOXYzine pamoate [Vistaril] 50 mg PO HS PRN 07/09/22 [History] Atorvastatin [Lipitor] 10 mg PO HS 08/01/22 [History] Dapagliflozin Propanediol [Farxiga] 10 mg PO DAILY 30 Days #30 tab 09/10/22 [Rx] busPIRone HCl [Buspar] 5 mg PO TID 30 Days #90 tab 09/10/22 [Rx] Apixaban [Eliquis] 5 mg PO BID 12/12/23 [History] Finasteride [Proscar] 5 mg PO DAILY 12/12/23 [History] Sertraline [Zoloft] 50 mg PO DAILY 12/12/23 [History] Calcium Carbonate [Tums] 1,000 mg PO QID PRN tab 04/22/24 [Rx] Insulin Detemir (Levemir) [Levemir] 15 unit SQ BID@0700,2100 each 04/22/24 [Rx] Ipratropium-Albuterol Nebulize [Duoneb 0.5 mg-3 mg/3 ml Soln] 3 ml INHALATION RT-Q2H PRN each 04/22/24 [Rx] Ipratropium-Albuterol Nebulize [Duoneb 0.5 mg-3 mg/3 ml Soln] 3 ml INHALATION RT-QID each 04/22/24 [Rx] diphenhydrAMINE [Benadryl] 25 mg PO BID PRN cap 04/22/24 [Rx] Naloxone HCl [Narcan] 4 mg NASAL DIRECTED PRN 05/01/24 [History] Prochlorperazine [Compazine] 10 mg PO Q8H PRN 05/01/24 [History] Tamsulosin [Flomax] 0.4 mg PO HS 05/01/24 [History] ALPRAZolam [Xanax] 0.25 mg PO TID #6 tab 05/15/24 [Rx] INSULIN ASPART (NovoLOG) [NovoLOG (formulary)] 5 unit SQ AC-TID each 05/15/24 [Rx] Budesonide-Formot 160-4.5 Mcg [Symbicort 160-4.5 Mcg Inhaler] 2 puff INHALATION RT-BID each 05/18/24 [Rx] Terbinafine [LamISIL] 250 mg PO DAILY tab 05/18/24 [Rx] acetaZOLAMIDE [Diamox] 250 mg PO BID tab 05/18/24 [Rx] Acetaminophen [Tylenol 8 Hour] 650 mg PO Q6H PRN 06/04/24 [History] Pantoprazole [Protonix] 40 mg PO DAILY 06/04/24 [History] Pregabalin [Lyrica] 50 mg PO BID 06/04/24 [History] oxyCODONE HCL/ACETAMINOPHEN [Percocet 7.5-325 mg] 1 tab PO Q6HR PRN 06/04/24 [History] predniSONE 10 mg PO DAILY 06/04/24 [History] Amoxic-Pot Clav 875-125Mg [Augmentin 875-125] 1 tab PO Q12HR #10 tab 06/29/24 [Rx] Furosemide [Lasix] 40 mg PO BID #60 tablet 06/29/24 [Rx] Metoprolol Tartrate [Lopressor] 100 mg PO DAILY #90 tablet 06/29/24 [Rx] Sulfamethox-Tmp 800-160Mg [Bactrim DS 800-160 mg] 1 tab PO Q12HR #10 tab 06/29/24 [Rx] Follow up Appointment(s)/Referral(s): Carmine Dickerson MD [STAFF PHYSICIAN] - 07/06/24 9:45 am (appointment w/ Carolyn GONZALEZ) [facility] [NON-STAFF] - 07/15/24 8:00 am (The clinic will if appointment opens up sooner. ) Parish Iverson MD [Primary Care Provider] - 07/08/24 3:00 pm Rubén Gregory MD [STAFF PHYSICIAN] - 07/23/24 9:00 am (this is a previously scheduled appointment) Patient Instructions/Handouts: Pulmonary Edema (DC), MRSA (Methicillin- Resistant Staphylococcus Aureus) (DC), Type 2 Diabetes in Adults: New Diagnosis (DC), Hematoma (ED) Activity/Diet/Wound Care/Special Instructions: heart healthy diet activity is restricted till you see your doctor Wound Care orders: Right lower extremity - cleanse wound then apply absorptive silver, saline moist gauze, dry gauze, rolled gauze and secure tape. Change daily Right foot - cleanse wound then apply absorptive silver, saline moist gauze, rolled gauze, and secure tape. Change daily Right heel - cleanse wound and apply honey gel, dry gauze and secure with tape - change daily Gonzalez wrap right lower extremity from foot to knee - apply daily Left second toe - cleanse wound then apply honey gel, try gauze and secure with tape - change daily Left below the knee- cleanse wound then apply silver rope, apply silver dressing to open area on posterior left colon, wrap with kerlex and gonzalez wrap, change every 48 hours Discharge Disposition: HOME SELF-CARE
--- NOTE | 2024-06-28 15:59 | P.PN ---
Subjective Progress Note Date: 06/28/24 Principal diagnosis: Reason for follow-up is left leg infected hematoma Patient is a 59-year-old male with a past medical history significant for hypertension hyperlipidemia COPD heart failure atrial fibrillation and a previous right lower extremity infected hematoma now with development of a hematoma to the left leg that has been drained by vascular surgery. On today's evaluation that is 06/28/2024, Patient is afebrile patient is currently on 2 L nasal oxygen and denies having any worsening shortness of breath, the patient denies any chest pain or cough, the patient denies any nausea vomiting did not have any abdominal pain and no diarrhea, pain to the lower extremities currently controlled. No new lab has been repeated today Objective - Vital Signs Vital signs: Vital Signs Temp 97.9 F 06/28/24 13:20 Pulse 90 06/28/24 15:51 Resp 19 06/28/24 07:46 BP 146/74 06/28/24 13:20 Pulse Ox 95 06/28/24 13:20 FiO2 30 06/28/24 15:54 Intake & Output 06/27/24 06/28/24 06/28/24 18:59 06:59 18:59 Intake Total 222 Output Total 200 Balance 22 Weight 161.3 kg 160.9 kg Intake: Oral 222 Output: Urine 200 Other: Voiding Method Toilet Toilet Urinal Urinal # Voids 3 - Exam GENERAL DESCRIPTION: Middle-age male up in bed in no distress RESPIRATORY SYSTEM: Unlabored breathing , decreased breath sounds at bases HEART: S1 S2 regular rate and rhythm , ABDOMEN: Soft , no tenderness EXTREMITIES: Left lower extremity is currently dressed minimal drainage on the dressing - Labs CBC & Chem 7: 06/26/24 10:24 06/26/24 10:24 Labs: Abnormal Lab Results - Last 24 Hours (Table) 06/27/24 06/27/24 06/28/24 Range/Units 17:16 20:31 07:14 POC Glucose (mg/dL) 136 H 173 H 141 H (70-110) mg/dL 06/28/24 Range/Units 12:24 POC Glucose (mg/dL) 140 H (70-110) mg/dL Assessment and Plan (1) Leg wound, left Current Visit: Yes Status: Acute Code(s): S81.802A - UNSPECIFIED OPEN WOUND, LEFT LOWER LEG, INITIAL ENCOUNTER SNOMED Code(s): 88706113153976027 (2) Leukocytosis Current Visit: No Status: Acute Code(s): D72.829 - ELEVATED WHITE BLOOD CELL COUNT, UNSPECIFIED SNOMED Code(s): 575775541 (3) Venous stasis Current Visit: No Status: Acute Code(s): I87.8 - OTHER SPECIFIED DISORDERS OF VEINS SNOMED Code(s): 20444074 Plan: 1patient with chronic swelling to bilateral lower extremity did have a history of right leg infected hematoma that wound is healing without evidence of any cellulitis. 2patient with developing swelling and bleeding from the left upper leg concerning for possible hematoma at the question of possible infected hematoma with antibiotics for it. 3elevated white count possible related to the left leg hematoma/infected hematoma. 4patient is status post vascular surgery evaluation drainage of the hematoma and culture which are now growing Klebsiella and MRSA 5patient will be able to finish therapy with 7-day course of oral Augmentin and Bactrim DS on discharge Dictation was produced using [employer] dictation software. please excuse any grammatical, word or spelling errors. Time with Patient: Less than 30
--- NOTE | 2024-06-28 16:47 | P.PN ---
Subjective Interval History: 59-year-old male, history of hypertension, hyperlipidemia, atrial fibrillation, asthma/COPD, sleep apnea, who comes from the residential because he was more lethargic and his pulse ox was low at the residential. Patient normally is on 2 L of oxygen at home. Patient himself wakes up and has no complaints however he is quick to go back to sleep. Patient has had no history of fever or chills patient denied any chest pain or palpitation. Patient has any abdominal pain patient has nausea vomiting diarrhea Blood work reveals WBC of 5.3, hemoglobin of 13.6 and platelet count of 144, sodium 138, potassium 4.6, BUNs/creatinine of 55/1.8 and blood glucose of 155, magnesium elevated at 2.5, lactic acid level of 1.5, troponin 0.023, ABG reveals pH of 7.24, pCO2 of 84, pO2 of 63; patient is admitted for further treatment for pulmonary edema hypercapnia Chest x-ray completed in ED reveals pulmonary edema 24-hour interval change 06/07/2024, -Patient is seen and evaluated in room at bedside; patient is doing well today, less shortness of breath less cough, no wheezing, no chest pain, no fever, no chills, no hemoptysis --presently on 3 L nasal cannula, and his O2 saturation is 100% hemodynamically stable blood pressure is 116/73. Review shows WBC count is 7.5 hemoglobin is 15.2 basic metabolic profile is normal bicarb is 36 BUN 50 creatinine 1.55, steadily improving compared to creatinine of 1.81 on admission Continue bronchodilators and methylprednisolone 40 mg IV every 8 hours Continue diuretics, Lasix 40 mg IV push every 8 hours, continue Diamox to 50 mg p.o. twice daily Continue amiodarone and Eliquis 06/08 Patient is awake alert, sitting at the bedside, looks tired. Patient has been using BiPAP machine all night but he could not sleep well because of frequent epistaxis happened last night. Currently epistaxis is stopped. No other bleeding from anywhere else. No headache dizziness or new weakness numbness. No chest pain. He still complaining from dyspnea but improving, leg swelling is better. No other GI/ symptom He is currently on 4 L oxygen via nasal cannula, at home he was using 2 L. I discussed the risk and benefits of anticoagulation including Eliquis and he agrees. Eliquis was resumed and we will going to monitor for bleeding. He is currently on Protonix 40 mg p.o. daily 06/09 Patient still with breathing difficulty. He is not in respiratory distress while at rest but he has still has limited air entry in both sides. He is using BiPAP overnight IV Lasix lowered to twice daily. Creatinine was 1.9. Check creatinine tomorrow Metoprolol dose increased 150 twice daily and to 200 mg in the morning and 200 mg in the evening Patient also remains on IV Solu-Medrol 40 mg Echocardiogram done yesterday showing ejection fraction of 60 to 65%, it was suboptimal study 06/10 Patient overall doing okay His breathing is quiet but looks at baseline. He is currently on 3 L of oxygen which is same home dose of 2-3. Patient confirms to me he has a concentrator and machine at home for his oxygen. Also he confirms to me he has Eliquis at home. Patient adamant not to go to subacute rehab, he says he had bad experience last time. Patient thus will be discharged home with home care. However multiple home agency rejected the patient. We will discussed with the patient and still recommend to go to subacute rehab if he agrees He has superficial wound on the tip of his right second toe. Wound consult is requested Overall doing well. Pulmonary team cleared him for discharge. Guest Service Representative team recommend to monitor him 1 more day. After his IV Lasix switched to oral dose. Will monitor creatinine tomorrow Possible discharge in 24 to 48 hours 06/11 Patient was quite agitated overnight, he was hypoxic. He was transferred to the ICU after given some sedatives and placed back on BiPAP. Currently tolerating diet well and his oxygenation is improved Metoprolol dose was increased to 200 mg daily. Repeat chest x-ray showed cardiomegaly with pulm pulmonary vascular congestion, mild He remains on IV Solu-Medrol 60 mg. Normal Saline 75 mL started 06/12 Patient is still in the ICU, on BiPAP with a setting of 16/6 and FiO2 of 30% He is calm not agitated. Patient did not need extra doses of Haldol or Ativan He denies chest pain or any other new complaint He still adamant not to go To subacute rehab upon discharge despite the risk of noncompliance with BiPAP and other medical management 06/22 resuming the care of the patient today Patient currently in room 385, looks much better than last time I saw him, mentation at baseline, energetic, sitting at the bedside. States he used the BiPAP machine Currently he was started on cefazolin recently status post I&D today for his lower extremity by vascular surgery team for his hematoma and sample sent for culture and sensitivity 06/23 Patient feels fine, fully awake and oriented, sitting and his bed side/age eating his popsicle Denies chest pain or dyspnea Since morning he told the staff he wants to go home today. Staff and I explained for him were still waiting for the wound culture and he remains on IV cefazolin so far he verbalized understanding but he is going to discussed with I D team Patient is also considering leaving AMA, I have lengthy discussion with the patient about the risks benefits and alternatives including but not limited to the risk of worsening infection, sepsis and/or , cardiac or heart disease worsening or organ dysfunction he verbalized understanding. Not sure if his going to leave AMA. However explained for the patient to follow-up with his PCP and As soon as possible or come to emergency room 1 if he changes his mind or develop any symptoms again he verbalized understanding Based upon my evaluation patient has capacity make medical decision I told the patient if he decides to leave AMA he should have someone to pick him up and he agrees Currently patient clinically remains stable pending wound culture while he is on IV cefazolin Continued on oral Lasix and oral prednisone Discussed with staff and RN and eladio pillowcase cleaner 06/24 Patient feels fine Mentation at baseline No chest pain or respiratory symptoms Patient still eager to go home Pending wound culture from his left leg while kept on IV antibiotic 06/25 Patient with no new symptoms He uses CPAP machine this morning. No chest pain or dyspnea He is on cefepime and daptomycin Wound culture not finalized yet but showing Klebsiella, Enterococcus and presumptive MRSA 06/26 Patient wound culture is growing multiple bacteria including Klebsiella, Enterococcus faecalis and MRSA. Patient currently kept on cefepime and IV daptomycin. Patient might benefit from PICC line but patient told the staff he does not want IV antibiotic he prefer oral antibiotic. However creatinine is also elevated 1.2-1.3 which limits the use of antibiotics. Patient also is fixated about going into [facility] only because that is where his brother is at and he refused to go to another rehab. [facility] does not take his insurance, as it is Medicaid. I discussed plan with the patient and he is agreeable for now Continue with cefepime and IV daptomycin Repeat labs Patient can be downgraded to general medical floor, no need for telemetry 06/27patient was seen and examined today, on 3 L oxygen which patient reported his baseline, required BiPAP overnight. Afebrile, blood pressure stable. No new labs from today, WBCs were trending yesterday down yesterday. Creatinine was 1.39 yesterday. Infectious disease following, currently on daptomycin and cefepime, recommended to switch to Augmentin and Bactrim DS on discharge if going home. Patient agreeable to go to subacute rehab. 06/28--patient was seen and examined today. On 3 L oxygen. At baseline. Afebrile, vital stable. Okay to discharge per pulmonary. Patient declined going to subacute rehab, infectious disease recommended to continue Augmentin and Bactrim at discharge. Patient decided to go home. Does not have a ride until tomorrow. Assessment and plan: -- Pulmonary edema, secondary to acute diastolic CHF with preserved ejection fraction, improved -- Acute on chronic hypoxic hypercapnic respiratory failure: 3L baseline Acute COPD exacerbation Obstructive sleep apnea Severe COPD with FEV1 22% ---Left lower extremity cellulitis/infected hematomastatus post I&D by vascular surgery, ID following on daptomycin and cefepime -- Atrial fibrillation; controlled ventricular response, stable -- Hyperglycemia; uncontrolled diabetes mellitus with long-term insulin use -- Lantus 15 units SQ twice daily; NovoLog 5 units SQ AC -Will monitor Accu-Cheks before every meal and at bedtime with insulin sliding scale ---. Hypertension; metoprolol 150 mg daily -- Hyperlipidemia; -- BPH -- Noncompliance -- Left lower extremity cellulitis s/p I&D for small hematoma pending culture and sensitivity. Patient continued on cefazolin --- CKD stage III Morbid obesity Plan: Patient out of the ICU on select unit, currently he is on select unit Continue with BiPAP At night Continue with oral Lasix, lowered to twice per day. Amiodarone was discontinued by garden center manager Status post I&D of his left lower extremity hematoma, on daptomycin and cefepime, wound culture growing Klebsiella, Enterococcus and MRSA. Augmentin and Bactrim on discharge if goes home. Continue with insulin Per physical sciences professor Monitor creatinine continue with prednisone Wound consult Resumed Eliquis with risk and benefits explained for him and he is agreeable. Patient still at risk of bleeding and will be monitored closely Cardiology and pulmonary consulted DVT prophylaxis: Eliquis GI Prophylaxis: Protonix PT/OT: Subacute rehab, patient declined. Plan to discharge home, patient does not have right LE tomorrow. Monitor vital signs and labs Labs and medication were reviewed. Continue same treatment. Further recommendations as per clinical course of the patient PHYSICAL EXAMINATION: GENERAL: The patient is A&O x3, NAD HEENT: EOMI, Sclerae anicteric, Moist Mucous membranes Neck: Supple, Non tender, No JVD PULMONARY: Equal breath souds B/L, + wheezing, No crackles. CARDIOVASCULAR: S1, S2 present. No murmurs, rubs, or gallops. ABDOMEN: Soft, nontender, nondistended, normoactive bowel sounds. No guarding or rebound tenderness. MUSCULOSKELETAL: ++ edema, No cyanosis. No clubbing. Normal ROM. Intact peripheral pulses. Lower extremitiesdressed NEUROLOGICAL: CN 2-12 grossly intact. No FND Skin: No Rash REVIEW OF SYSTEMS: CONSTITUTIONAL: No fever or chills. CARDIOVASCULAR: No chest pain, palpitations or syncope. PULMONARY: No shortness of breath, no cough, sore throat. GASTROINTESTINAL: No nausea, vomiting, diarrhea, abdominal pain. : No Dysuria, urgency, frequency. Extremities: No edema. NEUROLOGICAL: No headaches, no weakness, or numbness Dictation was produced using [employer] dictation software. please excuse any grammatical, word or spelling errors. Objective - Vital Signs Vital signs: Vital Signs Temp 97.9 F 06/28/24 13:20 Pulse 94 06/28/24 15:59 Resp 19 06/28/24 07:46 BP 146/74 06/28/24 13:20 Pulse Ox 95 06/28/24 13:20 FiO2 30 06/28/24 15:54 Intake & Output 06/27/24 06/28/24 06/28/24 18:59 06:59 18:59 Intake Total 222 Output Total 200 Balance 22 Weight 161.3 kg 160.9 kg Intake: Oral 222 Output: Urine 200 Other: Voiding Method Toilet Toilet Urinal Urinal # Voids 3 - Labs CBC & Chem 7: 06/26/24 10:24 06/26/24 10:24 Labs: Abnormal Lab Results - Last 24 Hours (Table) 06/27/24 06/27/24 06/28/24 Range/Units 17:16 20:31 07:14 POC Glucose (mg/dL) 136 H 173 H 141 H (70-110) mg/dL 06/28/24 Range/Units 12:24 POC Glucose (mg/dL) 140 H (70-110) mg/dL
[2024-06-28 17:29] LABS: Glucose,Whole Blood 270 mg/dL (70-110)
[2024-06-28 20:17] LABS: Glucose,Whole Blood 141 mg/dL (70-110)
[2024-06-29 02:59] LABS: Glucose,Whole Blood 148 mg/dL (70-110)
[2024-06-29 07:35] LABS: Glucose,Whole Blood 131 mg/dL (70-110)
[2024-06-29 12:27] LABS: Glucose,Whole Blood 143 mg/dL (70-110)
[2024-06-29 12:49] VITALS: BP 111/69; PULSE 67; RESP 21; TEMP 97.9
--- NOTE | 2024-06-29 14:19 | P.PN ---
Subjective Progress Note Date: 06/29/24 The patient is seen today June 22, 2024 in follow-up on the selective care unit. He is currently sitting up at the bedside. Awake and alert and no acute distress. He denies any worsening shortness of breath, cough or congestion. He is maintaining good O2 saturations in the 90s on 3 L/min per nasal cannula. He continues with Gonzalez wraps to the bilateral lower extremities. They remain quite edematous and with open wounds. He remains on cefazolin. He is continued on Lasix and Aldactone. Remains on Diamox. Continued on DuoNeb inhalations, Pulmicort and Perforomist inhalations, prednisone taper. Anticoagulated with Eliquis. White count 18.3. Hemoglobin 13.4. Platelets 141. Sodium 137. Potassium 4.2. Bicarb 39. BUN 48. Creatinine 1.31. Glucose 120. The patient is seen today June 23, 2024 in follow-up on the selective care unit. He is currently resting in bed. Awake and alert in no acute distress. He denies any worsening shortness of breath, cough or congestion. He did undergo debridement of the left lower extremity wound. He remains on cefazolin. He is continued on DuoNeb inhalations, Pulmicort and Perforomist inhalations, prednisone taper. Remains on oral diuretics. Anticoagulated with Eliquis. Glucose 96. The patient is seen today June 24, 2024 in follow-up on the selective care unit. He is currently sitting up at the bedside. Awake and alert in no acute distress. He denies any worsening shortness of breath, cough or congestion. He is maintaining good O2 saturations in the 90s on 3 L/min per nasal cannula. White count 18.8. Hemoglobin 13.7. Platelets 125. Sodium 136. Potassium 4.2. Bicarb 32. BUN 46. Creatinine 1.29. Glucose 131. Left leg wound culture positive for Klebsiella and Enterococcus faecalis. Final sensitivities are still pending. He is currently on cefepime and daptomycin. Remains on DuoNeb inhalations, Pulmicort and Perforomist inhalations, prednisone taper. Remains on oral diuretics. Anticoagulated with Eliquis. The patient is seen today June 25, 2024 in follow-up on the selective care unit. He is awake and alert in no acute distress. Sitting up at the bedside. Denies any worsening shortness of breath, cough or congestion. Maintaining good O2 saturations in the upper 90s on 3 L/min per nasal cannula. He is afebrile. Hemodynamically stable. Left leg wound cultures were positive for Klebsiella pneumoniae, Enterococcus faecalis and MRSA. Glucose 119. He remains on DuoNeb and elations, Pulmicort and performance inhalations, prednisone taper. Remains on oral diuretics. Anticoagulated with Eliquis. He remains on cefepime and daptomycin per ID service. The patient is seen today June 26, 2024 in follow-up on the selective care unit. He is currently sitting up at the bedside. Awake and alert in no acute distress. Maintaining good O2 saturations in the high 90s on 3 L/min per nasal cannula. He has been afebrile. Hemodynamically stable. Left leg wound cultures were positive for Klebsiella pneumoniae, Enterococcus faecalis and MRSA. White count 12.2. Hemoglobin 12.8. Platelets 117. Sodium 136. Potassium 3.9. Bicarb 37. BUN 49. Creatinine 1.39. Glucose 108. He is continued on DuoNeb inhalations, Pulmicort and Perforomist inhalations, prednisone. He remains on oral diuretics. He is continued on Eliquis for anticoagulation. Remains on daptomycin and cefepime. The patient is seen today June 27, 2024 in follow-up on the regular medical floor. He was transferred here from the third floor yesterday. He has been stable. No cardiac issues. He is sitting up at the bedside. Awake and alert in no acute distress. He remains on bronchodilators, steroids. Anticoagulated with Eliquis. Continued on daptomycin and cefepime per ID service. Microb iology of the left lower extremity wound infection repeat revealed Klebsiella pneumoniae, Enterococcus faecalis and MRSA. Glucose 256. The patient is seen today June 28, 2024 in follow-up on the regular medical floor. He is currently sitting up at the bedside. Awake and alert in no acute distress. Denies any worsening shortness of breath, cough or congestion. Maintaining good O2 saturations in the mid 90s on 2 L/min per nasal cannula. Glucose 141. Microbiology of the left lower extremity wound infection repeat revealed Klebsiella pneumoniae, Enterococcus faecalis and MRSA. He remains on daptomycin and cefepime. Anticoagulated with Eliquis. Continued on bronchodilators. Continued on oral diuretics. Continued on prednisone taper. The patient is seen today June 29, 2024 in follow-up on the regular medical floor. He is currently awake and alert in no acute distress. Sitting up at the bedside. Denies any worsening shortness of breath, cough or congestion. He is maintaining good O2 saturations in the 90s on 2 L/min per nasal cannula. Lung sounds are clear. Continued on DuoNeb inhalations, Symbicort, prednisone taper. Remains on cefepime and daptomycin. Gonzalez wraps continue to the lower extremities for his noted wounds. Objective - Vital Signs Vital signs: Vital Signs Temp 97.9 F 06/29/24 12:48 Pulse 67 06/29/24 12:48 Resp 21 06/29/24 12:48 BP 111/69 06/29/24 12:48 Pulse Ox 97 06/29/24 12:48 FiO2 30 06/28/24 20:05 Intake & Output 06/28/24 06/29/24 06/29/24 18:59 06:59 18:59 Intake Total 1794 1946 Balance 1794 1946 Weight 160.1 kg Intake: Intake, IV Titration 175 Amount Cefepime 2 gm In Sodium 125 Chloride 0.9% 100 ml @ 25 mls/hr IVPB Q8HR [facility] Rx# :[id number] DAPTOmycin 450 mg In 50 Sodium Chloride 0.9% 50 ml @ 100 mls/hr IVPB Q24HR@1600 [facility] Rx#: [id number] Oral [id number] Other: # Voids 3 - Exam GENERAL EXAM: Alert, obese, 59-year-old male, sitting up at the bedside, on 2 L nasal cannula, in no apparent distress. HEAD: Normocephalic. EYES: Normal reaction of pupils, equal size. NOSE: Clear with pink turbinates. THROAT: No erythema or exudates. NECK: No masses, no JVD. CHEST: No chest wall deformity. LUNGS: Equal air entry with faint end expiratory wheeze, diminished. CVS: S1 and S2 normal with no audible murmur, irregular rhythm. ABDOMEN: No hepatosplenomegaly, normal bowel sounds, no guarding or rigidity. SPINE: No scoliosis or deformity SKIN: No rashes CENTRAL NERVOUS SYSTEM: No focal deficits, tone is normal in all 4 extremities. EXTREMITIES: Lower extremity edema and ulcerations, chronic venous stasis changes. Gonzalez wraps in place. Peripheral pulses are intact. - Labs CBC & Chem 7: 06/26/24 10:24 06/26/24 10:24 Labs: Abnormal Lab Results - Last 24 Hours (Table) 06/28/24 06/28/24 06/29/24 Range/Units 17:17 20:15 02:58 POC Glucose (mg/dL) 270 H 141 H 148 H (70-110) mg/dL 06/29/24 06/29/24 Range/Units 07:25 12:21 POC Glucose (mg/dL) 131 H 143 H (70-110) mg/dL Assessment and Plan Assessment: Acute on chronic hypoxemic and hypercapnic respiratory failure, secondary to chronic diastolic CHF exacerbation, as well as COPD exacerbation. Patient is currently on 2 L of oxygen by nasal cannula Small bilateral pleural effusions/atelectasis Severe cellulitis of the bilateral lower extremities, wound cultures positive for Klebsiella, Enterococcus and MRSA. Currently on cefepime and daptomycin. He did undergo debridement 04/22/2024 Severe COPD, stage IV, with an FEV1 that is 22% of predicted Obstructive sleep apnea syndrome, noncompliant with noninvasive positive pressure ventilation Morbid obesity Stage IIIa chronic kidney disease Atrial fibrillation, anticoagulated with Eliquis Chronic lower extremity edema History of hypertension History of hyperlipidemia Former tobacco dependence Plan: The patient was seen and evaluated Medications reviewed Remains stable and on 2 L nasal cannula Cleared for discharge Complete a prednisone taper Continue his home oxygen, pulmonary medications Follow-up in our office in 1 week I have personally seen and examined the patient, performed the documentation and the assessment and plan as written. Number of minutes spent on the visit: 10 Dictation was produced using [employer] dictation software. Please excuse any grammatical, word or spelling errors.
--- NOTE | 2024-06-29 16:25 | P.PN ---
Subjective Interval History: 59-year-old male, history of hypertension, hyperlipidemia, atrial fibrillation, asthma/COPD, sleep apnea, [facility] was more lethargic and his pulse ox [facility]. Patient normally is on 2 L of oxygen at home. Patient himself wakes up and has no complaints however he is quick to go back to sleep. Patient has had no history of fever or chills patient denied any chest pain or palpitation. Patient has any abdominal pain patient has nausea vomiting diarrhea Blood work reveals WBC of 5.3, hemoglobin of 13.6 and platelet count of 144, sodium 138, potassium 4.6, BUNs/creatinine of 55/1.8 and blood glucose of 155, magnesium elevated at 2.5, lactic acid level of 1.5, troponin 0.023, ABG reveals pH of 7.24, pCO2 of 84, pO2 of 63; patient is admitted for further treatment for pulmonary edema hypercapnia Chest x-ray completed in ED reveals pulmonary edema 24-hour interval change 06/07/2024, -Patient is seen and evaluated in room at bedside; patient is doing well today, less shortness of breath less cough, no wheezing, no chest pain, no fever, no chills, no hemoptysis --presently on 3 L nasal cannula, and his O2 saturation is 100% hemodynamically stable blood pressure is 116/73. Review shows WBC count is 7.5 hemoglobin is 15.2 basic metabolic profile is normal bicarb is 36 BUN 50 creatinine 1.55, steadily improving compared to creatinine of 1.81 on admission Continue bronchodilators and methylprednisolone 40 mg IV every 8 hours Continue diuretics, Lasix 40 mg IV push every 8 hours, continue Diamox to 50 mg p.o. twice daily Continue amiodarone and Eliquis 06/08 Patient is awake alert, sitting at the bedside, looks tired. Patient has been using BiPAP machine all night but he could not sleep well because of frequent epistaxis happened last night. Currently epistaxis is stopped. No other bleeding from anywhere else. No headache dizziness or new weakness numbness. No chest pain. He still complaining from dyspnea but improving, leg swelling is better. No other GI/ symptom He is currently on 4 L oxygen via nasal cannula, at home he was using 2 L. I discussed the risk and benefits of anticoagulation including Eliquis and he agrees. Eliquis was resumed and we will going to monitor for bleeding. He is currently on Protonix 40 mg p.o. daily 06/09 Patient still with breathing difficulty. He is not in respiratory distress while at rest but he has still has limited air entry in both sides. He is using BiPAP overnight IV Lasix lowered to twice daily. Creatinine was 1.9. Check creatinine tomorrow Metoprolol dose increased 150 twice daily and to 200 mg in the morning and 200 mg in the evening Patient also remains on IV Solu-Medrol 40 mg Echocardiogram done yesterday showing ejection fraction of 60 to 65%, it was suboptimal study 06/10 Patient overall doing okay His breathing is quiet but looks at baseline. He is currently on 3 L of oxygen which is same home dose of 2-3. Patient confirms to me he has a concentrator and machine at home for his oxygen. Also he confirms to me he has Eliquis at home. Patient adamant not to go to subacute rehab, he says he had bad experience last time. Patient thus will be discharged home with home care. However multiple home agency rejected the patient. We will discussed with the patient and still recommend to go to subacute rehab if he agrees He has superficial wound on the tip of his right second toe. Wound consult is requested Overall doing well. Pulmonary team cleared him for discharge. Consultant Teacher team recommend to monitor him 1 more day. After his IV Lasix switched to oral dose. Will monitor creatinine tomorrow Possible discharge in 24 to 48 hours 06/11 Patient was quite agitated overnight, he was hypoxic. He was transferred to the ICU after given some sedatives and placed back on BiPAP. Currently tolerating diet well and his oxygenation is improved Metoprolol dose was increased to 200 mg daily. Repeat chest x-ray showed cardiomegaly with pulm pulmonary vascular congestion, mild He remains on IV Solu-Medrol 60 mg. Normal Saline 75 mL started 06/12 Patient is still in the ICU, on BiPAP with a setting of 16/6 and FiO2 of 30% He is calm not agitated. Patient did not need extra doses of Haldol or Ativan He denies chest pain or any other new complaint He still adamant not to go To subacute rehab upon discharge despite the risk of noncompliance with BiPAP and other medical management 06/22 resuming the care of the patient today Patient currently in room 385, looks much better than last time I saw him, mentation at baseline, energetic, sitting at the bedside. States he used the BiPAP machine Currently he was started on cefazolin recently status post I&D today for his lower extremity by vascular surgery team for his hematoma and sample sent for culture and sensitivity 06/23 Patient feels fine, fully awake and oriented, sitting and his bed side/age eating his popsicle Denies chest pain or dyspnea Since morning he told the staff he wants to go home today. Staff and I explained for him were still waiting for the wound culture and he remains on IV cefazolin so far he verbalized understanding but he is going to discussed with I D team Patient is also considering leaving AMA, I have lengthy discussion with the patient about the risks benefits and alternatives including but not limited to the risk of worsening infection, sepsis and/or , cardiac or heart disease worsening or organ dysfunction he verbalized understanding. Not sure if his going to leave AMA. However explained for the patient to follow-up with his PCP and As soon as possible or come to emergency room 1 if he changes his mind or develop any symptoms again he verbalized understanding Based upon my evaluation patient has capacity make medical decision I told the patient if he decides to leave AMA he should have someone to pick him up and he agrees Currently patient clinically remains stable pending wound culture while he is on IV cefazolin Continued on oral Lasix and oral prednisone Discussed with staff and RN and eladio nurse case manager 06/24 Patient feels fine Mentation at baseline No chest pain or respiratory symptoms Patient still eager to go home Pending wound culture from his left leg while kept on IV antibiotic 06/25 Patient with no new symptoms He uses CPAP machine this morning. No chest pain or dyspnea He is on cefepime and daptomycin Wound culture not finalized yet but showing Klebsiella, Enterococcus and presumptive MRSA 06/26 Patient wound culture is growing multiple bacteria including Klebsiella, Enterococcus faecalis and MRSA. Patient currently kept on cefepime and IV daptomycin. Patient might benefit from PICC line but patient told the staff he does not want IV antibiotic he prefer oral antibiotic. However creatinine is also elevated 1.2-1.3 which limits the use of antibiotics. Patient also is fixated about going into [facility] only because that is where his brother is at and he refused to go to another rehab. [facility] does not take his insurance, as it is Medicaid. I discussed plan with the patient and he is agreeable for now Continue with cefepime and IV daptomycin Repeat labs Patient can be downgraded to general medical floor, no need for telemetry 06/27patient was seen and examined today, on 3 L oxygen which patient reported his baseline, required BiPAP overnight. Afebrile, blood pressure stable. No new labs from today, WBCs were trending yesterday down yesterday. Creatinine was 1.39 yesterday. Infectious disease following, currently on daptomycin and cefepime, recommended to switch to Augmentin and Bactrim DS on discharge if going home. Patient agreeable to go to subacute rehab. 06/28--patient was seen and examined today. On 3 L oxygen. At baseline. Afebrile, vital stable. Okay to discharge per pulmonary. Patient declined going to subacute rehab, infectious disease recommended to continue Augmentin and Bactrim at discharge. Patient decided to go home. Does not have a ride until tomorrow. 06/29--patient was seen and examined today, on 3 L oxygen, okay to discharge per pulmonary. Patient continues to decline subacute rehab. Patient reported again today that he does not have a ride until tomorrow. transportation operations manager on board to arrange for a ride. Assessment and plan: -- Pulmonary edema, secondary to acute diastolic CHF with preserved ejection fraction, improved -- Acute on chronic hypoxic hypercapnic respiratory failure: 3L baseline Acute COPD exacerbation Obstructive sleep apnea Severe COPD with FEV1 22% ---Left lower extremity cellulitis/infected hematomastatus post I&D by vascular surgery, ID following on daptomycin and cefepime -- Atrial fibrillation; controlled ventricular response, stable -- Hyperglycemia; uncontrolled diabetes mellitus with long-term insulin use -- Lantus 15 units SQ twice daily; NovoLog 5 units SQ AC -Will monitor Accu-Cheks before every meal and at bedtime with insulin sliding scale ---. Hypertension; metoprolol 150 mg daily -- Hyperlipidemia; -- BPH -- Noncompliance -- Left lower extremity cellulitis s/p I&D for small hematoma pending culture and sensitivity. Patient continued on cefazolin --- CKD stage III Morbid obesity Plan: Patient out of the ICU on select unit, currently he is on select unit Continue with BiPAP At night Continue with oral Lasix, lowered to twice per day. Amiodarone was discontinued by airport ramp attendant Status post I&D of his left lower extremity hematoma, on daptomycin and cefepime, wound culture growing Klebsiella, Enterococcus and MRSA. Augmentin and Bactrim on discharge if goes home. Continue with insulin Per medical front desk specialist Monitor creatinine continue with prednisone Wound consult Resumed Eliquis with risk and benefits explained for him and he is agreeable. Patient still at risk of bleeding and will be monitored closely Cardiology and pulmonary consulted DVT prophylaxis: Eliquis GI Prophylaxis: Protonix PT/OT: Subacute rehab, patient declined. Plan to discharge home, he reported that he does not have a ride until tomorrow. Monitor vital signs and labs Labs and medication were reviewed. Continue same treatment. Further recommendations as per clinical course of the patient PHYSICAL EXAMINATION: GENERAL: The patient is A&O x3, NAD HEENT: EOMI, Sclerae anicteric, Moist Mucous membranes Neck: Supple, Non tender, No JVD PULMONARY: Equal breath souds B/L, + wheezing, No crackles. CARDIOVASCULAR: S1, S2 present. No murmurs, rubs, or gallops. ABDOMEN: Soft, nontender, nondistended, normoactive bowel sounds. No guarding or rebound tenderness. MUSCULOSKELETAL: ++ edema, No cyanosis. No clubbing. Normal ROM. Intact peripheral pulses. Lower extremitiesdressed NEUROLOGICAL: CN 2-12 grossly intact. No FND Skin: No Rash REVIEW OF SYSTEMS: CONSTITUTIONAL: No fever or chills. CARDIOVASCULAR: No chest pain, palpitations or syncope. PULMONARY: No shortness of breath, no cough, sore throat. GASTROINTESTINAL: No nausea, vomiting, diarrhea, abdominal pain. : No Dysuria, urgency, frequency. Extremities: No edema. NEUROLOGICAL: No headaches, no weakness, or numbness Dictation was produced using [employer] dictation software. please excuse any grammatical, word or spelling errors. Objective - Vital Signs Vital signs: Vital Signs Temp 97.9 F 06/29/24 12:48 Pulse 67 06/29/24 12:48 Resp 21 06/29/24 12:48 BP 111/69 06/29/24 12:48 Pulse Ox 97 06/29/24 12:48 FiO2 30 12/29/24 20:05 Intake & Output 06/28/24 06/29/24 06/29/24 18:59 06:59 18:59 Intake Total 1794 1946 Balance 1794 1946 Weight 160.1 kg Intake: Intake, IV Titration 175 Amount Cefepime 2 gm In Sodium 125 Chloride 0.9% 100 ml @ 25 mls/hr IVPB Q8HR [facility] Rx# :[id number] DAPTOmycin 450 mg In 50 Sodium Chloride 0.9% 50 ml @ 100 mls/hr IVPB Q24HR@1600 [facility] Rx#: [id number] Oral 1619 1946 Other: # Voids 3 - Labs CBC & Chem 7: 06/26/24 10:24 06/26/24 10:24 Labs: Abnormal Lab Results - Last 24 Hours (Table) 06/28/24 06/28/24 06/29/24 Range/Units 17:17 20:15 02:58 POC Glucose (mg/dL) 270 H 141 H 148 H (70-110) mg/dL 06/29/24 06/29/24 Range/Units 07:25 12:21 POC Glucose (mg/dL) 131 H 143 H (70-110) mg/dL
[2024-06-29] MEDS ORDERED: SYMBICORT 160-4.5 MCG INHALER INHALATION SCH (20:00)
--- NOTE | 2024-07-01 14:52 | P.PN ---
Subjective Progress Note Date: 06/29/24 Principal diagnosis: Reason for follow-up is left leg infected hematoma Patient is a 59-year-old male with a past medical history significant for hypertension hyperlipidemia COPD heart failure atrial fibrillation and a previous right lower extremity infected hematoma now with development of a hematoma to the left leg that has been drained by vascular surgery. On today's evaluation that is 06/29/2024, patient has been afebrile, patient is breathing comfortably and is currently on 2 L nasal cannula oxygen, patient denies having any significant cough no chest pain, patient denies nausea vomiting or diarrhea and no abdominal pain, denies any worsening pain to the l ower extremity. No new lab has been obtained today Objective - Vital Signs Vital signs: Vital Signs Temp 97.8 F 06/29/24 07:50 Pulse 88 06/29/24 12:32 Resp 18 06/29/24 07:50 BP 106/63 06/29/24 07:50 Pulse Ox 96 06/29/24 07:50 FiO2 30 06/28/24 20:05 Intake & Output 06/28/24 06/29/24 06/29/24 18:59 06:59 18:59 Intake Total 1794 1946 Balance 1791946 Weight 160.1 kg Intake: Intake, IV Titration 175 Amount Cefepime 2 gm In Sodium 125 Chloride 0.9% 100 ml @ 25 mls/hr IVPB Q8HR [facility] Rx# :[id number] DAPTOmycin 450 mg In 50 Sodium Chloride 0.9% 50 ml @ 100 mls/hr IVPB Q24HR@1600 [facility] Rx#: [id number] Oral [id number] Other: # Voids 3 - Exam GENERAL DESCRIPTION: Middle-age male up in bed in no distress RESPIRATORY SYSTEM: Unlabored breathing , decreased breath sounds at bases HEART: S1 S2 regular rate and rhythm , ABDOMEN: Soft , no tenderness EXTREMITIES: Left lower extremity is currently dressed minimal drainage on the dressing - Labs CBC & Chem 7: 06/26/24 10:24 06/26/24 10:24 Labs: Abnormal Lab Results - Last 24 Hours (Table) 06/28/24 06/28/24 06/29/24 Range/Units 17:17 20:15 02:58 POC Glucose (mg/dL) 270 H 141 H 148 H (70-110) mg/dL 06/29/24 06/29/24 Range/Units 07:25 12:21 POC Glucose (mg/dL) 131 H 143 H (70-110) mg/dL Assessment and Plan (1) Leg wound, left Status: Acute Code(s): S81.802A - UNSPECIFIED OPEN WOUND, LEFT LOWER LEG, INITIAL ENCOUNTER SNOMED Code(s): 86022999535093647 (2) Leukocytosis Status: Acute Code(s): D72.829 - ELEVATED WHITE BLOOD CELL COUNT, UNSPECIFIED SNOMED Code(s): 169396439 (3) Venous stasis Status: Acute Code(s): I87.8 - OTHER SPECIFIED DISORDERS OF VEINS SNOMED Code(s): 89522501 Plan: 1patient with chronic swelling to bilateral lower extremity did have a history of right leg infected hematoma that wound is healing without evidence of any cellulitis. 2patient with developing swelling and bleeding from the left upper leg concerning for possible hematoma at the question of possible infected hematoma with antibiotics for it. 3elevated white count possible related to the left leg hematoma/infected hematoma. 4patient is status post vascular surgery evaluation drainage of the hematoma and culture which are now growing Klebsiella and MRSA 5patient has received adequate IV antibiotics while inpatient, will be able to finish therapy with 7-day course of oral Augmentin and Bactrim DS on discharge Dictation was produced using AF83 dictation software. please excuse any grammatical, word or spelling errors. Time with Patient: Less than 30
== END 2024-06-29 14:26 | disposition home or self-care (01) | DRG 194 ==
LOC: EC 14:40 → 3SCARD 18:48 → 2SICU 06-11 06:52 → 3SCARD 06-13 10:27 → 5NMEDONC 06-26 15:57
PROVIDERS: ADMIT Hospitalist; ATTEND Hospitalist
PROC: 5A09357 Assistance with Respiratory Ventilation, Less than 24 Consecutive Hours, Continuous Positive Airway Pressure (ICD-10-PCS; principal; 2024-06-04)
PROC: 0JCP3ZZ Extirpation of Matter from Left Lower Leg Subcutaneous Tissue and Fascia, Percutaneous Approach (ICD-10-PCS; 2024-06-22)
DX: I13.0 Hypertensive heart and chronic kidney disease with heart failure and stage 1 through stage 4 chronic kidney disease, or unspecified chronic kidney disease (principal); J96.21 Acute and chronic respiratory failure with hypoxia; J96.22 Acute and chronic respiratory failure with hypercapnia; E87.3 Alkalosis; L03.115 Cellulitis of right lower limb; I48.19 Other persistent atrial fibrillation; J44.1 Chronic obstructive pulmonary disease with (acute) exacerbation; L89.612 Pressure ulcer of right heel, stage 2; L03.116 Cellulitis of left lower limb; Z66 Do not resuscitate; I87.311 Chronic venous hypertension (idiopathic) with ulcer of right lower extremity; L97.512 Non-pressure chronic ulcer of other part of right foot with fat layer exposed; L97.522 Non-pressure chronic ulcer of other part of left foot with fat layer exposed; L97.812 Non-pressure chronic ulcer of other part of right lower leg with fat layer exposed; I95.9 Hypotension, unspecified; Z99.81 Dependence on supplemental oxygen; E11.22 Type 2 diabetes mellitus with diabetic chronic kidney disease; E11.621 Type 2 diabetes mellitus with foot ulcer; Z79.01 Long term (current) use of anticoagulants; Z79.4 Long term (current) use of insulin; I50.33 Acute on chronic diastolic (congestive) heart failure; E11.65 Type 2 diabetes mellitus with hyperglycemia; E66.01 Morbid (severe) obesity due to excess calories; Z68.42 Body mass index [BMI] 45.0-49.9, adult; N18.31 Chronic kidney disease, stage 3a; L98.492 Non-pressure chronic ulcer of skin of other sites with fat layer exposed; Z91.198 Patient's noncompliance with other medical treatment and regimen for other reason; E78.5 Hyperlipidemia, unspecified; N40.0 Benign prostatic hyperplasia without lower urinary tract symptoms; G47.33 Obstructive sleep apnea (adult) (pediatric); S80.12XA Contusion of left lower leg, initial encounter; R04.0 Epistaxis; R45.1 Restlessness and agitation; B96.1 Klebsiella pneumoniae [K. pneumoniae] as the cause of diseases classified elsewhere; B95.2 Enterococcus as the cause of diseases classified elsewhere; B95.62 Methicillin resistant Staphylococcus aureus infection as the cause of diseases classified elsewhere; I87.8 Other specified disorders of veins; Z96.641 Presence of right artificial hip joint; Z79.899 Other long term (current) drug therapy; Z79.84 Long term (current) use of oral hypoglycemic drugs; Z79.51 Long term (current) use of inhaled steroids; Z86.14 Personal history of Methicillin resistant Staphylococcus aureus infection; Z87.891 Personal history of nicotine dependence
CPT/HCPCS: 36410; 36415; 36600; 71045; 71046; 76937; 80048; 80053; 80306; 81003; 82803; 82805; 83036; 83605; 83735; 83880; 84484; 85025; 85027; 85610; 85730; 87070; 87077; 87186; 87205; 87636; 93005; 93306; 94640; 94660; 94760; 96374; 96375; 96376; 99291